=== PATIENT | female | born 1945 | race Caucasian/White ===

== ENCOUNTER 2022-04-22 10:37 | Outpatient (CLI) | payer OTHER, SELFPAY | END 2022-04-22 10:38 | disposition home or self-care (01) | LOC: WOUND 10:37 | PROVIDERS: PCP Family Medicine; Visit Provider Nurse Practitioner Family | DX: L89.314 Pressure ulcer of right buttock, stage 4 (principal); I87.2 Venous insufficiency (chronic) (peripheral); Q82.0 Hereditary lymphedema; G82.20 Paraplegia, unspecified; Z99.3 Dependence on wheelchair; M06.9 Rheumatoid arthritis, unspecified | CPT/HCPCS: 11042; 87070; 87077; 87186 ==

== ENCOUNTER 2022-04-29 09:42 | Outpatient (CLI) | payer OTHER, SELFPAY ==
--- NOTE | 2022-04-29 10:00 | CRLHL7_ITS ---
For Patients: As a result of the Century Cures Act, medical imaging exams and procedure reports are released immediately into your electronic medical record. You may view this report before your referring provider. If you have questions, please contact your health care provider. Indication: PRESSURE ULCER OF RIGHT BUTTOCK (STAGE 4) Technique: Noncontrast CT pelvis Please note that all CT scans at this facility use dose modulation, iterative reconstruction, and/or weight-based dosing when appropriate to reduce radiation dose to as low as reasonably achievable. Comparison: MRI 01/07/2022 Findings: Large pressure ulcer within the right lower gluteal region again noted extending to the posterior aspect of the right ischial tuberosity. There is slight loss of cortical definition on slice 2, image 81 regarding the right posterior ischial tuberosity along with areas of ill-defined increased density at the marrow space. This corresponds with the area of edema on prior MRI. An old nondisplaced fracture deformity of the right inferior pubic ramus is present. There is no acute fracture. The ulcer contains gas and surrounding soft tissue thickening, compatible with some element of partial healing. A large amount of stool extends beyond the anus. Rectal wall thickening is present. Sigmoid diverticulosis. No adenopathy. Postop changes lumbar spine marked atrophy of the muscles. Incidental left ovarian cyst. No uterine mass. Impression: Large pressure ulcer along the right inferior gluteal region, as before with extension to the right knee posterior ischial bone with CT findings suggestive of osteomyelitis and reactive intramedullary marrow change within the exposed bone. An old adjacent fracture deformity of the right inferior pubic ramus is also present. Diffuse rectal wall thickening which is likely transient and related to bowel movement as this was not present on the prior study. Chronic sigmoid diverticulosis. Please note that all CT scans at this facility use dose modulation, iterative reconstruction, and/or weight-based dosing when appropriate to reduce radiation dose to as low as reasonably achievable. Dictated by Jeremiah Nicholson MD @ 04/29/2022 11:17:57 AM (Electronically Signed)
== END 2022-04-29 09:43 | disposition home or self-care (01) ==
LOC: CT 09:44
PROVIDERS: PCP Family Medicine; Visit Provider Nurse Practitioner Family
DX: L89.314 Pressure ulcer of right buttock, stage 4 (principal); K57.30 Diverticulosis of large intestine without perforation or abscess without bleeding
CPT/HCPCS: 11042; 72192; 97605

== ENCOUNTER 2022-05-06 10:44 | Outpatient (CLI) | payer OTHER, SELFPAY | END 2022-05-06 10:45 | disposition home or self-care (01) | LOC: WOUND 10:44 | PROVIDERS: PCP Family Medicine; Visit Provider Nurse Practitioner Family | DX: L89.314 Pressure ulcer of right buttock, stage 4 (principal); I87.2 Venous insufficiency (chronic) (peripheral); Q82.0 Hereditary lymphedema; A49.01 Methicillin susceptible Staphylococcus aureus infection, unspecified site | CPT/HCPCS: 11042; 96372; J0696 ==

== ENCOUNTER 2022-05-13 10:39 | Outpatient (CLI) | payer OTHER, SELFPAY | END 2022-05-13 10:40 | disposition home or self-care (01) | LOC: WOUND 10:39 | PROVIDERS: PCP Family Medicine; Visit Provider Nurse Practitioner Family | DX: L89.314 Pressure ulcer of right buttock, stage 4 (principal); I87.2 Venous insufficiency (chronic) (peripheral); Q82.0 Hereditary lymphedema | CPT/HCPCS: 11042 ==

== ENCOUNTER 2022-05-20 10:43 | Outpatient (CLI) | payer OTHER, SELFPAY | END 2022-05-20 10:44 | disposition home or self-care (01) | LOC: WOUND 10:43 | PROVIDERS: PCP Family Medicine; Visit Provider Nurse Practitioner Family | DX: L89.314 Pressure ulcer of right buttock, stage 4 (principal); I89.0 Lymphedema, not elsewhere classified; G82.20 Paraplegia, unspecified; I87.2 Venous insufficiency (chronic) (peripheral); Z99.3 Dependence on wheelchair | CPT/HCPCS: 11042 ==

== ENCOUNTER 2022-05-20 11:52 | Outpatient (CLI) | payer OTHER, SELFPAY ==
[2022-05-20 12:31] LABS: Basophils Percent Auto 0.2 % (0.0-3.0); Eosinophils Percent Auto 0.8 % (0.0-7.0); Hematocrit 43.1 % (33.0-51.0); Hemoglobin* 13.2 gm/dL (12.0-16.0); Immature Granulocytes Abs Auto 0.05 K/uL (0.00-0.30); Lymphocytes Percent Auto 14.9 % (20-44); Mean Corpuscular HGB Conc 31 gm/dL (32-36); Mean Corpuscular Hemoglobin 29 pg (26-34); Mean Corpuscular Volume 93 fL (80-100); Monocytes Percent Auto 5.3 % (0.0-11.0); Neutrophils Percent Auto 78.4 % (42.0-72.0); Platelet Count* 301 K/uL (140-440); RDW Coefficient of Variation % 14.4 % (11.5-15.5); Red Blood Count 4.62 m/uL (4.00-5.20); White Blood Count* 13.03 K/uL (4.50-11.00)
[2022-05-20 12:42] LABS: Chloride* 98 mmol/L (96-114); Potassium* 4.2 mmol/L (3.6-5.1); Sodium* 139 mmol/L (135-149)
[2022-05-20 12:45] LABS: Carbon Dioxide* 36 mmol/L (20-32); Creatinine* 0.6 mg/dL (0.5-1.5); Estimated Glomerular Filt Rate 94 ml/min
[2022-05-20 12:46] LABS: Blood Urea Nitrogen* 31 mg/dL (7-30); Glucose* 123 mg/dL (60-115)
[2022-05-20 12:47] LABS: Slide Review Reflex No
[2022-05-21 14:06] LABS: Prealbumin 21.2 mg/dL (20.0-40.0)
[2022-05-23 03:37] LABS: Zinc, Serum/Plasma 68.3 ug/dL (60.0-120.0)
== END 2022-05-20 11:53 | disposition home or self-care (01) ==
PROVIDERS: PCP Family Medicine; Visit Provider Nurse Practitioner Family
DX: L89.314 Pressure ulcer of right buttock, stage 4 (principal)
CPT/HCPCS: 36415; 80048; 84134; 84630; 85025

== ENCOUNTER 2022-05-27 10:47 | Outpatient (CLI) | payer OTHER, SELFPAY | END 2022-05-27 10:48 | disposition home or self-care (01) | LOC: WOUND 10:47 | PROVIDERS: PCP Family Medicine; Visit Provider Nurse Practitioner Family | DX: L89.314 Pressure ulcer of right buttock, stage 4 (principal); I87.2 Venous insufficiency (chronic) (peripheral); Q82.0 Hereditary lymphedema; G82.20 Paraplegia, unspecified; Z99.3 Dependence on wheelchair | CPT/HCPCS: 11042; 97605 ==

== ENCOUNTER 2022-06-03 10:45 | Outpatient (CLI) | payer OTHER, SELFPAY | END 2022-06-03 10:46 | disposition home or self-care (01) | PROVIDERS: PCP Family Medicine; Visit Provider Nurse Practitioner Family | DX: L89.314 Pressure ulcer of right buttock, stage 4 (principal); I87.2 Venous insufficiency (chronic) (peripheral); Q82.0 Hereditary lymphedema | CPT/HCPCS: 11042; 97605 ==

== ENCOUNTER 2022-06-10 10:48 | Outpatient (CLI) | payer OTHER, SELFPAY | END 2022-06-10 10:49 | disposition home or self-care (01) | LOC: WOUND 10:48 | PROVIDERS: PCP Family Medicine; Visit Provider Nurse Practitioner Family | DX: L89.314 Pressure ulcer of right buttock, stage 4 (principal); I87.2 Venous insufficiency (chronic) (peripheral); Q82.0 Hereditary lymphedema; G82.20 Paraplegia, unspecified; Z99.3 Dependence on wheelchair | CPT/HCPCS: 11042; 97605 ==

== ENCOUNTER 2022-06-24 14:44 | Outpatient (CLI) | payer OTHER, SELFPAY | END 2022-06-24 14:45 | disposition home or self-care (01) | PROVIDERS: PCP Family Medicine; Visit Provider Nurse Practitioner Family | DX: L89.314 Pressure ulcer of right buttock, stage 4 (principal); I87.2 Venous insufficiency (chronic) (peripheral); Q82.0 Hereditary lymphedema; G82.20 Paraplegia, unspecified; Z99.3 Dependence on wheelchair | CPT/HCPCS: 11042; 97605 ==

== ENCOUNTER 2022-07-01 14:43 | Outpatient (CLI) | payer OTHER, SELFPAY | END 2022-07-01 14:44 | disposition home or self-care (01) | LOC: WOUND 14:43 | PROVIDERS: PCP Family Medicine; Visit Provider Nurse Practitioner Family | DX: L89.314 Pressure ulcer of right buttock, stage 4 (principal); M86.68 Other chronic osteomyelitis, other site; Q82.0 Hereditary lymphedema | CPT/HCPCS: 11042; 97605 ==

== ENCOUNTER 2022-07-08 14:25 | Outpatient (CLI) | payer OTHER, SELFPAY | END 2022-07-08 14:26 | disposition home or self-care (01) | LOC: WOUND 14:25 | PROVIDERS: PCP Family Medicine; Visit Provider Nurse Practitioner Family | DX: L89.314 Pressure ulcer of right buttock, stage 4 (principal); I87.2 Venous insufficiency (chronic) (peripheral); Q82.0 Hereditary lymphedema | CPT/HCPCS: 11042 ==

== ENCOUNTER 2022-07-15 14:27 | Outpatient (CLI) | payer OTHER, SELFPAY ==
--- OUTSIDE RECORDS SUMMARY | 2022-07-15 14:28 | XMS_ITS | Encounter Summary ---
:1945 Author [facility] Address [address], [place] [address] Care Team Providers Name Role Phone Flo Mckeon MD Primary Care Provider Reason for Visit Reason Comments Refill Encounter Details Date Type Department Care Team Description 06/13/2022 Refill [facility] [address] BlackLorenza, DO Refill Rheumatology [address]ie Barajas [address] [place] [address] [place] [address] [phone] Social History Tobacco Use Types Packs/Day Years Used Date Smoking Tobacco: Never Assessed Sex Assigned at Date Recorded Not on file documented as of this encounter Nursing Notes Jennifer Sanchez RN - 06/13/2022 12:06 PM CDT LV: 07/31/21 NV: n/a Renewed medication per medication refill protocol. Requested Prescriptions Pending Prescriptions Disp Refills folic acid 1 MG tablet [Pharmacy Med Name: FOLIC ACID 1 MG TABLET] 90 Tablet 3 Sig: TAKE 1 TABLET BY MOUTH EVERY DAY documented in this encounter Plan of Treatment Not on filedocumented as of this encounter Visit Diagnoses Diagnosis Rheumatoid arthritis with negative rheum atoid factor, involving unspecified site (HRC) Encounter for long-term (current) use of medications Encounter for long-term (current) use of other medications documented in this encounter Care Teams Silk Spreader Relationship Specialty Start Date End Date Flo Mckeon MD PCP - General 06/21/211999 [place] [address] documented as of this encounter
--- OUTSIDE RECORDS SUMMARY | 2022-07-15 14:28 | XMS_ITS | Encounter Summary ---
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) Lorenza Black DO Procedures XR Shoulder Rt 2+ Views [address] [place], [place] [address] Referral ID Status Reason Start Date Expiration Date Visits V isits Requested Authorized [id number] Incomplete 06/28/2021 09/27/2022 1 1 Procedure/Equipment (Routine) - Incomplete Specialty Diagnoses / Procedures Referred By Contact Refer red To Contact Diagnoses 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) Lorenza Black DO Procedures XR Hands 1 View Bilat Arthritis [address] [place], [place] [address] Referral ID Status Reason Start Date Expiration Date Visits V isits Requested Authorized [id number] Incomplete 06/28/2021 09/27/2022 1 1 Reason for Visit Reason Comments CONSULT Encounter Details Date Type Department Care Team Description 06/28/2021 Office Visit [place] Lorenza Black DO 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) (Primary Dx); Rheumatology [address] 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; [address] [address] [place], [place] [phone] [id number] Social History Tobacco Use Types Packs/Day Years Used Date Smoking Tobacco: Never Assessed Sex Assigned at Date Recorded Not on file documented as of this encounter Patient Instructions Patient InstructionsLorenza Black DO - 06/28/2021 12:45 PM CDT I do think you have rheumatoid arthritis or something very similar to it I am going to do some blood tests today to help me understand what type of rheumatoid arthritis thiscould be I also want to look at xrays of your hands and right shoulder to understand how much damage to the joints have already been done If your blood work looks great, I would love to start you on methotrexate 7 pills every week. I would also start folic acid once a day as a vitamin I do not believe the methotrexate will be enough to calm down your rheumatoid arthritis, so I will likely plan on adding something to it in the future. Usually medicare and medicare advantage plans PREFER infusion based medicines because it is cheaper for them. Expect a phone call from me to advise you to start the methotrexate documented in this encounter Progress Notes Lorenza Black DO - 06/28/2021 12:45 PM CDT Images from the original note were not included. Rheumatology Consultation 06/28/21 This patient is referred by Flo Singleton MD for evaluation of rheumatoid arthritis. Prerna Major is a 75 y.o. female who comes in for RA. Our patient comes in with complaints of rheumatoid arthritis diagnosed in 2003. She states that her initial symptoms were in the shoulders predominantly. She thinks that the pain was worse in the morning and evening. It appears that with use things improved. She was treated with prednisone and methotrexate initially for about a year without significant benefit. Subsequently infliximab was added on for about 6 months without any further benefit. At that point the patient moved away and was lost to follow-up to her previous stretching press operator. She has been on prednisone 5 mg and then recently 10 mg [id number] Today the patient states that her hands and wrists are also involved with pain and swelling. The hands and wrists became involved about 2 years ago and in the past year have become significantly worse.She states that there achy in nature and sharp with use. She currently rates her pain today at a 4/10 without activity. With activity at the hands the pain can go up to 6/10. She laments the inability to cone picker her grandchildren. She has tried anti-inflammatories and Tylenol in the past with modest benefit. She thinks that Aleve works the best for her. Past medical history is significant for rheumatoid arthritis diagnosed decades ago in 2003.. She tried infliximab and MTX in the past with waning efficacy. She has been on pred 10 for a long time. She also is wheelchair bound due to severe scoliosis s/p several surgical procedures. She has some sensation in lower extremities. She also has a history of osteoporosis Family history is negative for rheumatoid arthritis, psoriasis or inflammatory bowel disease The patient has never smoked. 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 Exam Gen: NAD, AOx3 Skin: I believe there are rheumatoid nodules palpable around the 1st CMC joint of the right hand dorsal aspect MSK: Her right wrist appears to be somewhat arthritic in nature with limited range of motion. There seems to be a cystic nodule on the volar aspect of her right wrist. Possible synovitis grade 1. Bilateral MCPs 1 through 5 without any evidence of synovitis or effusion. No effusion or synovitis noted in the DIP is or PIP is bilaterally. Significant Heberden's and Dora's nodes noted digits 2 through 5 bilaterally. As I examine her shoulders today I can appreciate that they feel warm to the touch and slightly swollen on palpation. Range of motion abduction is limited particularly in the right to about 90?? Lab/Imaging Labs: There were no applicable labs for us to review Imaging: There were no applicable images for us to review Assessment and Plan 75 y.o. female who comes in for RA - we took the liberty of performing bedside ultrasound today to look at her right wrist which was previously thought to be a ganglion cyst. On ultrasound this appears to be a large synovial cyst starting at the radiocarpal joint consistent with active rheumatoid arthritis. Both shoulders were also viewed and also to mild effusions were noted just superior to the infraspinatus tendons -incidental note her right wrist median nerve also meets criteria for carpal tunnel. 1) inflammatory arthritis -the distribution of her symptoms any progression of onset seems to be a little atypical for rheumatoid arthritis. We would expect predominantly hand MCP and wrist involvement. However we have shoulderand wrist involvement with sparing of the MCPs. -we will get blood work and x-rays to help further define the chronicity of her symptoms -get labs: CBC, creatinine, LFTs, TB, HIV, hepatitis-B, hepatitis-C, rheumatoid factor and anti CCP antibody -will get x-rays of her bilateral hands and right shoulder to look for erosions and secondary osteoarthritis -spoke to patient about restarting methotrexate. I understand that she previously did not have significant benefit from it however, it is a very good DMARD neck can be the foundation to build upon her treatment for rheumatoid arthritis -we will plan to add on a biologic on top of her methotrexate after we see the results of her above labs. We are leaning towards rituximab if she is seropositive and Orencia if she is seronegative -the patient is not interested in getting the COVID vaccine or booster -for now will have the patient continue the prednisone 10. My plan is to taper that once I have DMARD and biologic treatment on board -we will have to also further investigate her osteoporosis in the future. Rheumatoid arthritis, female over the age of 65 and chronic steroid use does not joesph well for osteoporosis -we will call the patient in the next 2 days and advised her to start the methotrexate if her labs look appropriate. We will have the patient follow-up with us via a virtual visit in the next month to discuss next steps Orders Placed This Encounter Procedures ??? Complete Blood Count -W/Diff ??? Creatinine / GFR ??? Liver Panel(Hepatic Function Panel) ??? TB QuantiFERON Gold Plus ??? Anti-CCP Antibody ??? Rheumatoid Factor, Quant Billing based on: Time Total time for the visit was 65 minutes including, but not limited to, eep-tzio-wd-face time spent reviewing records, counseling, and coordination of care. documented in this encounter Plan of Treatment Not on filedocumented as of this encounter Results XR Hands 1 View Bilat Arthritis (06/28/2021 2:55 PM CDT) Anatomical Region Laterality Modality Upper Extremity, Hand Digital Radiograph y Specimen (Source) Anatomical Collection Method Collection Time Re ceived Time Location / / Volume Laterality 06/28/2021 2:35 PM CDT Impressions 06/28/2021 3:49 PM CDT COMPARISON: ??None. FINDINGS: ??Single view of both hands. Left hand: The bones are mildly deminera lized. No acute fractures are seen. There is widening of the scapholunate interval at 5 mm which may indicate scapholunate dislocation. There are moderate degener ative changes throughout multiple interp halangeal joints, predominantly in the first IP joint and the third PIP joint. There are degenerative changes of the first CMC, STT and radiocarpal joints. Right hand: The bones are mildly deminer alized. No acute fractures are seen. There is advanced joint space narrowing of the third DIP joint with possible erosive changes. There are moderate degenerative changes of multiple interphalangeal rosanne nts, predominantly at the first IP and third PIP joints. There is marked widening of the scapholunate interval with proximal migration of the capitate to the leve l of the radiocarpal joint. There are de generative changes of the radiocarpal and multiple intercarpal joints. Procedure Note Kale Gilbert MD - 06/28/2021Formatti ng of this note might be different from the original. IMPRESSION COMPARISON: None. FINDINGS: Single view of both hands. Left hand: The bones are mildly deminera lized. No acute fractures are seen. There is widening of the scapholunate interval at 5 mm which may indicate scapholunate dislocation. There are moderate degenerative changes throughout multiple interphalangeal join ts, predominantly in the first IP joint and the third PIP joint. There are degenerative changes of the first CMC, STT and radiocarpal joints. Right hand: The bones are mildly deminer alized. No acute fractures are seen. There is advanced joint space narrowing of the third DIP joint with possible erosive changes. There are moderate degenerative changes of multiple interphalangeal joints, predomi nantly at the first IP and third PIP joints. There is marked widening of the scapholunate interval with proximal migration of the capitate to the level of the radiocarpal joint. There are degenerative changes of the ra diocarpal and multiple intercarpal joints. [facility] DO RAD GD XR Shoulder Rt 2+ Views (06/28/2021 2:55 PM CDT) Anatomical Region Laterality Modality Upper Extremity, Shoulder Digital Radiog gaston Specimen (Source) Anatomical Collection Method Collection Time Re ceived Time Location / / Volume Laterality 06/28/2021 2:35 PM CDT Impressions 06/28/2021 3:40 PM CDT COMPARISON: ??None. FINDINGS: ??No acute fractures are ident ified. No dislocation. Advanced degenerative arthrosis of the glenohumeral joint. Small calcific densities abutting the inferior glenoid likely represent intra-ar ticular osteocartilaginous bodies. Super ior subluxation of the humeral head may be seen with full-thickness rotator cuff tendon tears. Moderate degenerative arthrosis of the AC joint. Procedure Note Santy Albright MD - 06/28/2021Formatti ng of this note might be different from the original. IMPRESSION COMPARISON: None. FINDINGS: No acute fractures are identif ied. No dislocation. Advanced degenerative arthrosis of the glenohumeral joint. Small calcific densities abutting the inferior glenoid likely represent intra-articular osteocartilaginous bodies. Superior subl uxation of the humeral head may be seen with full-thickness rotator cuff tendon tears. Moderate degenerative arthrosis of the AC joint. Lorenza Hotalot [facility] DO RAD GD Rheumatoid Factor, Quant (06/28/2021 2:27 PM CDT) Analysis Performed At Patho logist Time Signature Rheumatoid <15 <=30 IU/mL 06/28/2021 [facility] Factor, 7:52 PM CDT LABORATORY Quantitative Specimen Anatomical Collection Method / Collection Time Recei giselle Time (Source) Location / Volume Laterality Blood Venipuncture / 06/28/2021 2:27 06/28/2021 2:28 Unknown PM CDT PM CDT [facility] Hotalot [facility] DO LAB_1 Performing Organization Address City/State/ZIP Code Phon e Number [facility] [address] [place] [address] Anti-CCP Antibody (06/28/2021 2:27 PM CDT) [facility] Method Time Signature Anti-CCP Antibody 1 <7 U/mL 06/29/2021 [facility]16 PM CDT [facility] Anti-CCP Antibody Negative Negative 06/29/2021 [facility] Interpretation 1:16 PM CDT [facility] Specimen Anatomical Collection Method / Collection Time Recei giselle Time (Source) Location / Volume Laterality Blood Venipuncture / 06/28/2021 2:27 06/28/2021 2:28 Unknown PM CDT PM CDT [facility] DO LAB_1 Performing Organization Address City/[facility]/ZIP Code Phon e Number [employer] [address] [address] Hepatitis B Surface Antigen (06/28/2021 2:27 PM CDT) [facility] Method Time Signature Hepatitis B Negative Negative 06/28/2021 [facility] Surface (Non (Non 8:12 PM CDT LABORATORY Antigen Reactive) Reactive) Specimen Anatomical Collection Method / Collection Time Recei giselle Time (Source) Location / Volume Laterality Blood Venipuncture / 06/28/2021 2:27 06/28/2021 2:28 Unknown PM CDT PM CDT Instant Information LAB_1 Performing Organization Address [facility] Phon e Number [facility] [address] [place] [address] HIV 1/2 Ag/Ab 4th Generation (06/28/2021 2:27 PM CDT) [facility] Method [place] Signature HIV 1/2 Negative Negative 06/28/2021 [facility] Antigen/Antib (Non (Non 7:52 PM CDT LABORATORY zachary (4th Reactive) Reactive) generation) Comment: HIV-1 p24 Antigen and HIV-1/HIV -2 Antibody not detected Specimen Anatomical Collection Method / Collection Time Recei giselle Time (Source) Location / Volume Laterality Blood Venipuncture / 06/28/2021 2:27 06/28/2021 2:28 Unknown PM CDT PM CDT [employer] DO LAB_1 Performing Organization Address City/[facility]/ZIP Code Phon e Number [facility] [address] [place] [address] Hepatitis C Antibody, with Reflex (06/28/2021 2:27 PM CDT) [facility] Method Time Signature Hepatitis C Negative Negative 06/28/2021 [facility] Antibody (Non (Non 7:52 PM CDT LABORATORY Reactive) Reactive) Comment: Antibodies to HCV not detected. Does not exclude the possiblity of exposure to HCV. Specimen Anatomical Collection Method / Collection Time Recei giselle Time (Source) Location / Volume Laterality Blood Venipuncture / 06/28/2021 2:27 06/28/2021 2:28 Unknown PM CDT PM CDT Lorenza Q Black DO LAB_1 Performing Organization Address City/[facility] Phon e Number [facility] [address] [place] [address] Liver Panel(Hepatic Function Panel) (06/28/2021 2:27 PM CDT) athologist Signature Alkaline 70 40 - 150 06/28/2021 [facility] Phosphatase U/L 5:11 PM CDT LABORATORY Bilirubin, Total 0.5 0.2 - 1.2 06/28/2021 [facility] mg/dL 5:11 PM CDT LABORATORY Bilirubin, 0.2 0.0 - 0.5 06/28/2021 [facility] Direct mg/dL 5:11 PM CDT LABORATORY AST (SGOT) 18 10 - 40 06/28/2021 [facility] U/L 5:11 PM CDT LABORATORY ALT (SGPT) 21 0 - 55 U/L 06/28/2021 [facility] 5:11 PM CDT LABORATORY Protein, Total 6.5 6.4 - 8.3 06/28/2021 [place] g/dL 5:11 PM CDT LABORATORY Albumin 3.9 3.5 - 5.0 06/28/2021 [facility] g/dL 5:11 PM CDT LABORATORY Specimen Anatomical Collection Method / Collection Time Recei giselle Time (Source) Location / Volume Laterality Blood Venipuncture / 06/28/2021 2:27 06/28/2021 2:28 Unknown PM CDT PM CDT [facility] Q Black DO LAB_1 Performing Organization Address City/State/[facility] Phon e Number [facility] [address] [place] [address] (ABNORMAL) Creatinine / GFR (06/28/2021 2:27 PM CDT) [facility] gist Method Time Signature Creatinine 0.40 (L) 0.55 - 06/28/2021 [facility] 1.02 mg/dL 5:11 PM CDT LABORATORY GFR, Estimated >60 >60 06/28/2021 [facility] mL/min/1.7 5:11 PM CDT LABORATORY 3m2 Specimen Anatomical Collection Method / Collection Time Recei giselle Time (Source) Location / Volume Laterality Blood Venipuncture / 06/28/2021 2:27 06/28/2021 2:28 Unknown PM CDT PM CDT Lorenza Q Black DO LAB_1 Performing Organization Address City/State/ZIP Code Phon e Number [facility] [address] [place] [address] documented in this encounter Visit Diagnoses Diagnosis 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
--- OUTSIDE RECORDS SUMMARY | 2022-07-15 14:28 | XMS_ITS | Encounter Summary ---
:1945 Author Organization [facility] Address [address], [place] [address] Care Team Providers Name Role Phone Unassigned, Provider Primary Care Provider Unavailable Encounter Details Date Type Department Care Team Description 10/13/1989 PN Conversion Only ZONING ENGINEER [address] [place] [address] Social History Tobacco Use Types Packs/Day Years Used Date Smoking Tobacco: Never Assessed Sex Assigned at Date Recorded Not on file documented as of this encounter Plan of Treatment Not on filedocumented as of this encounter Visit Diagnoses Not on filedocumented in this encounter Care Teams General Accounting Clerk Relationship Specialty Start Date End Date Unassigned, Provider PCP - General 07/16/00 06/20/21 [address] [place] [address] documented as of this encounter
--- OUTSIDE RECORDS SUMMARY | 2022-07-15 14:28 | XMS_ITS | Encounter Summary ---
:1945 Author Organization [facility] Address [address], [place] [address] Care Team Providers Name Role Phone Flo Mckeon MD Primary Care Provider Reason for Visit Reason Comments Refill Encounter Details Date Type Department Care Team Description 12/12/2021 Refill [facility] [address] Lorenza Black, DO Refill Rheumatology [address] [place] [address] [place] [address] [phone] Social History Tobacco Use Types Packs/Day Years Used Date Smoking Tobacco: Never Assessed Sex Assigned at Date Recorded Not on file documented as of this encounter Nursing Notes Akiko Vega LPN - 12/12/2021 12:22 PM CST Left message informing patient. ONAL BANKING REPRESENTATIVE Mercy Roman PA-C - 12/12/2021 12:18 PM CST Please contact the patient to let her know that we received a request for methotrexate refill but wecannot refill the medication as she has not had any updated blood tests checked. Please remind her these blood tests are needed every three months. Find out if she is getting them through an outside lab as I do not see any updated labs in Care everywhere. Dr. Black also wanted to see her in six-eight weeks from her last visit in July but no recheck has been scheduled. Please help her schedule a recheck with Dr. Black as soon as possible. ONAL BANKING REPRESENTATIVE documented in this encounter Plan of Treatment Not on filedocumented as of this encounter Visit Diagnoses Not on filedocumented in this encounter Care Teams Patient Safety Coordinator Relationship Specialty Start Date End Date Flo Mckeon MD PCP - General 06/21/211999 [place], [place] [id number] documented as of this encounter
--- OUTSIDE RECORDS SUMMARY | 2022-07-15 14:28 | XMS_ITS | Encounter Summary ---
:1945 Author Organization [facility] Address [address] [place] [address] Care Team Providers Name Role Phone Flo Mckeon MD Primary Care Provider Reason for Visit Reason Comments Phone Visit Follow-up Encounter Details Date Type Department Care Team Description 07/31/2021 Phone Visit [facility] Lorenza Black DO Rheumatoid arthritis with negative rheum atoid factor, involving unspecified site (HRC) (Primary Dx); Rheumatology [address] [place] [address] Encounter for long-term (cur rent) use of medications [address] [place] [address] [place], [place] [phone] (Wo rk) Social History Tobacco Use Types Packs/Day Years Used Date Smoking Tobacco: Never Assessed Sex Assigned at Date Recorded Not on file documented as of this encounter Progress Notes Lorenza Black DO - 07/31/2021 2:45 PM CDT Rheumatology Follow Up 07/31/2021 Follow Up RA Rheum History: We first met Ms Major in Jun 2021 with complaints of RA. She was diagnosed in 2003. She had previously been on MTX, infliximab and prednisone. When we met her, her wrist was quite swollen and we restarted MTX Current Treatment: MTX 17.5 and FA since Jun 2021 Interval History: At her first visit with us, we saw significant wrist effusion from RA. We checked her serologies which were negative. We started the patient on MTX which she had been on in the distant past She states today that she is currently being treated for a UTI. She does not think the MTX made a bit of difference for her at all. She is quite swollen and tender all around her joints now Exam Not applicable. This is a phone visit Assessment and Plan 75 y.o. 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 -still active based on patient report 1) RA - I mentioned that biologics are likely needed at this point - she would prefer to keep infusion biologics due to insurance coverage - we discussed rituximab vs orencia. We favored orencia given the seronegative ra but the patient wanted to try the rituximab due to the ease of scheduling - we will go ahead and get a PA for the rituximab now and have the patient scheduled We will see the patient in 6-8 weeks and reassess Total time was greater than 30 min with greater than 70 % for counseling and coordination of care (discussion with bedside nursing, patient counseling, discussion with care management, review of pertinent labs or studies, and medical records). This telephone visit was provided via telemedicine using interactive, secure video conferencing. Theconsult began at 2:45 P and ended at 3:10 on July 312020. Based on a discussion with the referring provider and a review of the patient's medical chart, it was determined that telemedicine was an appropriate and effective means for delivering care to this patient. The patient is located at Home in [facility]. The consulting provider is located in [place], [place]. documented in this encounter Plan of Treatment Not on filedocumented as of this encounter Visit Diagnoses Diagnosis Rheumatoid arthritis with negative rheum atoid factor, involving unspecified site (HRC) - Primary Encounter for long-term (current) use of medications Encounter for long-term (current) use of other medications documented in this encounter Care Teams Steel Placer Relationship Specialty Start Date End Date Flo Mckeon MD PCP - General 06/21/211999 [place] [address] documented as of this encounter
--- OUTSIDE RECORDS SUMMARY | 2022-07-15 14:28 | XMS_ITS | Encounter Summary ---
:1945 Author [facility] Address [address] [address] Care Team Providers Name Role Phone Flo Mckeon MD Primary Care Provider Reason for Visit Procedure/Equipment (Routine) - Incomplete Specialty Diagnoses / Procedures Referred By Contact Refer red To Contact Diagnoses 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) Black Lorenza Q, DO Procedures XR Hands 1 View Bilat Arthritis [address] [place], [place] [address] Referral ID Status Reason Start Date Expiration Date Visits V isits Requested Authorized [id number] Incomplete 06/28/2021 09/27/2022 1 1 Encounter Details Date Type Department Care Team Description 06/28/2021 Ancillary [place] Black, Lorenza Q, DO Rheumatoid arthritis Procedure Radiology [address] involving multiple [address] [facility] sites with positive [address] [place], [place] [address] (HRC) [phone] Social History Tobacco Use Types Packs/Day Years Used Date Smoking Tobacco: Never Assessed Sex Assigned at Date Recorded Not on file documented as of this encounter Plan of Treatment Not on filedocumented as of this encounter Procedures Procedure Name Priority Date/Time Associated Diagnosis Comme nts XR HANDS 1 VIEW Routine 06/28/2021 2:55 PM Rheumatoid arthriti s Results for this BILAT ARTHRITIS CDT involving multiple proced ure are in sites with positive the resu lts rheumatoid factor section. (HR) documented in this encounter Results XR Hands 1 View [...] the ra diocarpal and multiple intercarpal joints. Lorenza Q Black DO RAD GD documented in this encounter Visit Diagnoses Diagnosis 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) documented in this encounter Care Teams Tandem Operator Relationship Specialty Start Date End Date Flo Mckeon MD PCP - General 06/21/211999 [place] [id number] documented as of this encounter
--- OUTSIDE RECORDS SUMMARY | 2022-07-15 14:28 | XMS_ITS | Encounter Summary ---
:1945 Author Organization [facility] Address [address], [place] [address] Care Team Providers Name Role Phone Flo Mckeon MD Primary Care Provider Encounter Details Date Type Department Care Team Description 06/28/2021 Lab Visit [facility] Rheumatoid arthritis [address] [place] [address] with positive rheumatoid [phone] factor (HRC) Social History Tobacco Use Types Packs/Day Years Used Date Smoking Tobacco: Never Assessed Sex Assigned at Date Recorded Not on file documented as of this encounter Plan of Treatment Not on filedocumented as of this encounter Procedures Procedure Name Priority Date/Time Associated Comments Diagnosis CBC AND DIFFERENTIAL Routine 06/28/2021 2:28 PM Rheumatoid R esults for this PANEL CDT arthritis involving procedur e are in multiple sites with the resu lts positive rheumatoid section. factor (HRC) TB QUANTIFERON GOLD Routine 06/28/2021 2:28 PM Rheumatoid Re sults for this PLUS CDT arthritis involving procedur e are in multiple sites with the resu lts positive rheumatoid section. factor (HRC) TB QUANTIFERON GOLD Routine 06/28/2021 2:28 PM Rheumatoid Re sults for this PLUS MITOGEN CDT arthritis involving procedur e are in multiple sites with the resu lts positive rheumatoid section. factor (HRC) TB QUANTIFERON GOLD Routine 06/28/2021 2:28 PM Rheumatoid Re sults for this PLUS TB2 CDT arthritis involving procedur e are in multiple sites with the resu lts positive rheumatoid section. factor (HRC) TB QUANTIFERON GOLD Routine 06/28/2021 2:28 PM Rheumatoid Re sults for this PLUS TB1 CDT arthritis involving procedur e are in multiple sites with the resu lts positive rheumatoid section. factor (HRC) TB QUANTIFERON GOLD Routine 06/28/2021 2:28 PM Rheumatoid Re sults for this PLUS NIL CDT arthritis involving procedur e are in multiple sites with the resu lts positive rheumatoid section. factor (HRC) COMPLETE BLOOD Routine 06/28/2021 2:28 PM Rheumatoid Results for this COUNT-W/DIFF CDT arthritis involving procedur e are in multiple sites with the resu lts positive rheumatoid section. factor (HRC) HIV 1/2 AG/AB 4TH GEN Routine 06/28/2021 2:27 PM Rheumatoid Results for this CDT arthritis involving procedur e are in multiple sites with the resu lts positive rheumatoid section. factor (HRC) CREATININE / GFR Routine 06/28/2021 2:27 PM Rheumatoid Resul ts for this CDT arthritis involving procedur e are in multiple sites with the resu lts positive rheumatoid section. factor (HRC) ANTI-CCP AB Routine 06/28/2021 2:27 PM Rheumatoid Results f or this CDT arthritis involving procedur e are in multiple sites with the resu lts positive rheumatoid section. factor (HRC) LIVER PANEL(HEPATIC Routine 06/28/2021 2:27 PM Rheumatoid Re sults for this FUNCTION PANEL) CDT arthritis involving proce dure are in multiple sites with the resu lts positive rheumatoid section. factor (HRC) RHEUMATOID FACTOR, Routine 06/28/2021 2:27 PM Rheumatoid Res ults for this QUANT CDT arthritis involving procedur e are in multiple sites with the resu lts positive rheumatoid section. factor (HRC) HEPATITIS C ANTIBODY, Routine 06/28/2021 2:27 PM Rheumatoid Results for this WITH REFLEX CDT arthritis involving procedur e are in multiple sites with the resu lts positive rheumatoid section. factor (HRC) HBSAG (HEPATITIS B Routine 06/28/2021 2:27 PM Rheumatoid Res ults for this SURFACE AG) CDT arthritis involving procedur e are in multiple sites with the resu lts positive rheumatoid section. factor (HRC) documented in this encounter Results TB QuantiFERON Gold Plus Mitogen (06/28/2021 2:28 PM CDT) athologist Signature MITOGEN >10.000 IU/mL 07/02/2021 [facility] 8:53 AM CDT LABORATORY Specimen Anatomical Collection Method / Collection Time Recei giselle Time (Source) Location / Volume Laterality Blood Venipuncture / 06/28/2021 2:28 06/28/2021 2:28 Unknown PM CDT PM CDT Lorenza [facility] LAB_1 Performing Organization Address [facility] Phon e Number [facility] [address] [place] [address] TB QuantiFERON Gold Plus TB2 (06/28/2021 2:28 PM CDT) P athologist Signature TB2 0.081 IU/mL 07/02/2021 [facility] 8:53 AM CDT LABORATORY Specimen Anatomical Collection Method / Collection Time Recei giselle Time (Source) Location / Volume Laterality Blood Venipuncture / 06/28/2021 2:28 06/28/2021 2:28 Unknown PM CDT PM CDT [facility] LAB_1 Performing Organization Address [facility] Phon e Number [facility] [address] [place] [address] TB QuantiFERON Gold Plus TB1 (06/28/2021 2:28 PM CDT) P athologist Signature TB1 0.094 IU/mL 07/02/2021 [facility] 8:54 AM CDT LABORATORY Specimen Anatomical Collection Method / Collection Time Recei giselle Time (Source) Location / Volume Laterality Blood Venipuncture / 06/28/2021 2:28 06/28/2021 2:28 Unknown PM CDT PM CDT [facility] LAB_1 Performing Organization Address [facility] Phon e Number [facility] [address] [place] [address] TB QuantiFERON Gold Plus NIL (06/28/2021 2:28 PM CDT) [facility] gist Method Time Signature 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 NIL 0.024 IU/mL 07/02/2021 [facility] 8:54 AM LABORATORY CDT TB1-NIL 0.07 IU/mL 07/02/2021 [facility] 8:54 AM LABORATORY CDT TB2-NIL 0.06 IU/mL 07/02/2021 [facility] 8:54 AM LABORATORY CDT Mitogen-NIL 9.98 IU/mL 07/02/2021 [facility] 8:54 AM LABORATORY CDT Specimen Anatomical Collection Method / Collection Time Recei giselle Time (Source) Location / Volume Laterality Blood Venipuncture / 06/28/2021 2:28 06/28/2021 2:28 Unknown PM CDT PM CDT Narrative [facility] - 07/02/2021 8:54 A M CDT Nil ?TB1-Nil ? TB2-Nil ?Mitogen-Nil ??Result ?Interpretation (IU/ml) ??(IU/mL) ? (IU/mL) ?(IU/mL) <=8.0 ? >=0.35 & ? Any ?Any ?Positive ?M. tuberculosis ?>=25% Nil ?infection likely <=8.0 ? Any ?>=0.35 & ? Any ?Positive ?M. tuberculosis ? >=25% Nil ? infection likely <=8.0 ? <0.35 or ? <0.35 or ? >=0.50 ? Negative ?M. tuberculosis ?>=0.35 & ? >=0.35 & ?infection NOT ?<25% Nil ? <25% Nil ?likely <=8.0 ? <0.35 or ? <0.35 or ? <0.50 ? Indeterminate ??M. tuberculosis ?>=0.35 & ? >=0.35 & ?infection cannot ?<25% Nil ? <25% Nil ?be determined >8.0 ?Any ?Any ?Any ? Indeterminate ??M. tuberculosis ? infection cannot ? be determined. Important: Diagnosing or excluding tuber culosis disease, and assessing the probability of LTBI, requires a combination of epidemiological, historical, medical, and diagnostic findings that should be jennifer en into account when interpreting QFT-Pl us results. See general guidance on the diagnosis and treatment of TB disease and LTBI (https://www.cdc.gov/tb/publications/guidelines/default.htm). The magnitude of the measured IFN-gamma level cannot be correlated to stage or degree of infection, level of immune responsiveness, or likelihood for progression to active disease. A positive TB respons e in persons who are negative to Mitogen is rare, but has been seen in patients with TB disease. This indicates the IFN-gamma response to TB antigens is greater than that to Mitogen, which is possible a s the level of Mitogen does not maximall y stimulate IFN-gamma production by lymphocytes. Lorenza Q Black DO LAB_1 Performing Organization Address City/State/ZIP Code Phon e Number [facility] [address] [place] [address] (ABNORMAL) Complete Blood Count-W/Diff (06/28/2021 2:28 PM CDT) [facility] Method Time Signature WBC 12.1 (H) 3.5 - 10.5 06/28/2021 [facility] x10(9)/L 2:44 PM CDT LABORATORY RBC 5.26 (H) 3.90 - 06/28/2021 [facility] 5.03 2:44 PM CDT LABORATORY x10(12)/L Hemoglobin 15.2 12.0 - 06/28/2021 [facility] 15.5 g/dL 2:44 PM CDT LABORATORY HCT 48.5 (H) 34.9 - 06/28/2021 [facility] 44.5 % 2:44 PM CDT LABORATORY MCV 92.2 80.0 - 06/28/2021 [facility] 100.0 fL 2:44 PM CDT LABORATORY MCH 28.9 27.6 - 06/28/2021 [facility] 33.3 pg 2:44 PM CDT LABORATORY MCHC 31.3 (L) 31.5 - 06/28/2021 [facility] 35.2 g/dL 2:44 PM CDT LABORATORY RDW 13.8 11.9 - 06/28/2021 [facility] 15.5 % 2:44 PM CDT LABORATORY Platelets 307 150 - 450 06/28/2021 [facility] x10(9)/L 2:44 PM CDT LABORATORY Automated NRBC 0 <=0 /100 06/28/2021 [facility] WBC 2:44 PM CDT LABORATORY Neutrophil 10.8 (H) 1.7 - 7.0 06/28/2021 [facility] Absolute 10(9)/L 2:44 PM CDT LABORATORY Lymphocyte 0.9 (L) 1.0 - 4.8 06/28/2021 [facility] Absolute 10(9)/L 2:44 PM CDT LABORATORY Monocytes 0.3 0.2 - 0.9 06/28/2021 [facility] Absolute 10(9)/L 2:44 PM CDT LABORATORY Eosinophil 0.0 0.0 - 0.5 06/28/2021 [facility] Absolute 10(9)/L 2:44 PM CDT LABORATORY Basophil 0.0 0.0 - 0.3 06/28/2021 [facility] Absolute 10(9)/L 2:44 PM CDT LABORATORY Immature Gran % 0.7 (H) 0.0 - 0.5 06/28/2021 [facility] % 2:44 PM CDT LABORATORY Specimen Anatomical Collection Method / Collection Time Recei giselle Time (Source) Location / Volume Laterality Blood Venipuncture / 06/28/2021 2:28 06/28/2021 2:28 Unknown PM CDT PM CDT [employer] DO LAB_1 Performing Organization Address City/State/ZIP Code Phon e Number [facility] [address] [place] [address] Rheumatoid Factor, Quant (06/28/2021 2:27 PM CDT) Analysis Performed At Path logist Time Signature Rheumatoid <15 <=30 IU/mL 06/28/2021 [facility] Factor, 7:52 PM CDT LABORATORY Quantitative Specimen Anatomical Collection Method / Collection Time Recei giselle Time (Source) Location / Volume Laterality Blood Venipuncture / 06/28/2021 2:27 06/28/2021 2:28 Unknown PM CDT PM CDT [employer] DO LAB_1 Performing Organization Address City/State/ZIP Code Phon e Number [facility] [address] [place] [address] Anti-CCP Antibody (06/28/2021 2:27 PM CDT) [facility] Method Time Signature Anti-CCP Antibody 1 <7 U/mL 06/29/2021 [facility] 1:16 PM CDT CENTRAL LAB Anti-CCP Antibody Negative Negative 06/29/2021 [facility] Interpretation 1:16 PM CDT CENTRAL LAB Specimen Anatomical Collection Method / Collection Time Recei giselle Time (Source) Location / Volume Laterality Blood Venipuncture / 06/28/2021 2:27 06/28/2021 2:28 Unknown PM CDT PM CDT Lorenza [employer] DO LAB_1 Performing Organization Address City/[facility]/ZIP Code Phon e Number [facility] CENTRAL LAB [address] [address] Hepatitis B Surface Antigen (06/28/2021 2:27 PM CDT) [facility] Method Time Signature Hepatitis B Negative Negative 06/28/2021 [facility] Surface (Non (Non 8:12 PM CDT LABORATORY Antigen Reactive) Reactive) Specimen Anatomical Collection Method / Collection Time Recei giselle Time (Source) Location / Volume Laterality Blood Venipuncture / 06/28/2021 2:27 06/28/2021 2:28 Unknown PM CDT PM CDT Lorenza [employer] DO LAB_1 Performing Organization Address [facility] Code Phon e Number [facility] [address] [place] [address] HIV 1/2 Ag/Ab 4th Generation (06/28/2021 2:27 PM CDT) [facility] Method Time Signature HIV 1/2 Negative Negative 06/28/2021 [facility] Antigen/Antib (Non (Non 7:52 PM CDT LABORATORY zachary (4th Reactive) Reactive) generation) Comment: HIV-1 p24 Antigen and HIV-1/HIV -2 Antibody not detected Specimen Anatomical Collection Method / Collection Time Recei giselle Time (Source) Location / Volume Laterality Blood Venipuncture / 06/28/2021 2:27 06/28/2021 2:28 Unknown PM CDT PM CDT Lorenza [employer] DO LAB_1 Performing Organization Address [facility]/ZIP Code Phon e Number [facility] [address] [place] [address] Hepatitis C Antibody, with Reflex (06/28/2021 2:27 PM CDT) Patholo gist Method Time Signature Hepatitis C Negative Negative 06/28/2021 [facility] Antibody (Non (Non 7:52 PM CDT LABORATORY Reactive) Reactive) Comment: Antibodies to HCV not detected. Does not exclude the possiblity of exposure to HCV. Specimen Anatomical Collection Method / Collection Time Recei giselle Time (Source) Location / Volume Laterality Blood Venipuncture / 06/28/2021 2:27 06/28/2021 2:28 Unknown PM CDT PM CDT Lorenza Q Black DO LAB_1 Performing Organization Address City/[facility] Code Phon e Number [facility] [address] [place] [address] Liver Panel(Hepatic Function Panel) (06/28/2021 2:27 PM CDT) athologist [facility] Alkaline 70 40 - 150 06/28/2021 [facility] Phosphatase U/L 5:11 PM CDT LABORATORY Bilirubin, Total 0.5 0.2 - 1.2 06/28/2021 [facility] mg/dL 5:11 PM CDT LABORATORY Bilirubin, 0.2 0.0 - 0.5 06/28/2021 [facility] Direct mg/dL 5:11 PM CDT LABORATORY AST (SGOT) 18 10 - 40 06/28/2021 [facility] U/L 5:11 PM CDT LABORATORY ALT (SGPT) 21 0 - 55 U/L 06/28/2021 [facility] 5:11 PM CDT LABORATORY Protein, Total 6.5 6.4 - 8.3 06/28/2021 [facility] g/dL 5:11 PM CDT LABORATORY Albumin 3.9 3.5 - 5.0 06/28/2021 [facility] g/dL 5:11 PM CDT LABORATORY Specimen Anatomical Collection Method / Collection Time Recei giselle Time (Source) Location / Volume Laterality Blood Venipuncture / 06/28/2021 2:27 06/28/2021 2:28 Unknown PM CDT PM CDT Lorenza Q Black DO LAB_1 Performing Organization Address City/[facility]/ZIP [facility] Phon e Number [facility] [address] [place] [address] (ABNORMAL) Creatinine / GFR (06/28/2021 2:27 PM CDT) [facility] gist Method Time Signature Creatinine 0.40 (L) 0.55 - 06/28/2021 [facility] 1.02 mg/dL 5:11 PM CDT LABORATORY GFR, Estimated >60 >60 06/28/2021 [facility] mL/min/1.7 5:11 PM CDT LABORATORY 3m2 Specimen Anatomical Collection Method / Collection Time Recei giselle Time (Source) Location / Volume Laterality Blood Venipuncture / 06/28/2021 2:27 06/28/2021 2:28 Unknown PM CDT PM CDT Lorenza Q Black DO LAB_1 Performing Organization Address City/State/ZIP Code Phon e Number [facility] [address] [place] [address] documented in this encounter Visit Diagnoses Diagnosis 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) documented in this encounter Care Teams Fat Pressroom Worker Relationship Specialty Start Date End Date Flo Mckeon MD PCP - General 06/21/211999 [place] [address] documented as of this encounter
--- OUTSIDE RECORDS SUMMARY | 2022-07-15 14:28 | XMS_ITS | Encounter Summary ---
:1945 Author Organization [facility] Address [address], [place] [address] Care Team Providers Name Role Phone Flo Mckeon MD Primary Care Provider Reason for Visit Procedure/Equipment (Routine) - Incomplete Specialty Diagnoses / Procedures Referred By Contact Refer red To Contact Diagnoses 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) Lorenza Black, DO Procedures XR Shoulder Rt 2+ Views [address] [place], [place] [address] Referral ID Status Reason Start Date Expiration Date Visits V isits Requested Authorized [id number] Incomplete 06/28/2021 09/27/2022 1 1 Encounter Details Date Type Department Care Team Description 06/28/2021 Ancillary [place] Lorenza Black, DO Rheumatoid arthritis Procedure Radiology [address] involving multiple [address] [facility] sites with positive [address] [place], [place] [address] (HRC) [phone] Social History Tobacco Use Types Packs/Day Years Used Date Smoking Tobacco: Never Assessed Sex Assigned at Date Recorded Not on file documented as of this encounter Plan of Treatment Not on filedocumented as of this encounter Procedures Procedure Name Priority Date/Time Associated Diagnosis Comme nts XR SHOULDER RT 2+ Routine 06/28/2021 2:55 PM Rheumatoid arthri tis Results for this VIEWS CDT involving multiple procedure are in sites with positive the resu lts rheumatoid factor section. (HR) documented in this encounter Results XR Shoulder Rt 2+ Views (06/28/2021 2:55 [...] degenerative arthrosis of the AC joint. Lorenza Q Black DO RAD GD documented in this encounter Visit Diagnoses Diagnosis 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) documented in this encounter Care Teams Band Lining Bander Relationship Specialty Start Date End Date Flo Mckeon MD PCP - General 06/21/211999 [place] [address] documented as of this encounter
--- OUTSIDE RECORDS SUMMARY | 2022-07-15 14:28 | XMS_ITS | Clinical Summary ---
:1945 Author Organization [employer] Address [address] [place] [address] Care Team Providers Name Role Phone Flo Mckeon MD Primary Care Provider Source Comments You are receiving this document as you are listed as the primary care provider,follow-up provider, or the patient has been referred to you for consultation.This is in compliance with the Medicare and Medicaid EHR Incentive Program,which states Providers who transition their patient to another setting of careor provider of care or refers their patient to another provider of care shouldprovide summarycare record for each transition of care or referral. [facility] Medications Medication Sig Dispensed Refills Start Date End Date Status acetaminophen (TYLENOL as needed 0 Active ARTHRITIS) 650 MG controlled release tablet furosemide (LASIX) 20 MG Daily 0 06/11/2021 Active tablet diphenhydrAMINE-APAP Bedtime as 0 Active 25-500 MG tablet needed predniSONE (DELTASONE) 5 10 mg daily. 0 06/11/2021 Active MG tablet aspirin EC 81 MG enteric Daily 0 Active coated tablet naproxen sodium Twice A Day as 0 Active (ANAPROX) 220 MG tablet needed pseudoephedrine Daily 0 Acti ve ([id number]) 120 MG 12 hour release tablet calcium Take 2 Tablets 0 Activ e carbonate-vitamin D by mouth daily. 600-200 MG-UNIT tablet multivitamin (THERAGRAN) Take 1 Tablet by 0 Active tablet mouth daily. methotrexate 2.5 MG Take 7 Tablets 84 Tablet 1 07/02/2021 Active tablet by mouth once every week. 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 Encounters Date Type Specialty Care Team Description 06/13/2022 Refill Rheumatology Black, Lorenza Hernández, DO Refill from Last 3 Months Immunizations Name Administration Dates Next Due DT Ped 03/23/1987 Social History Tobacco Use Types Packs/Day Years Used Date Smoking Tobacco: Never Assessed Sex Assigned at Date Recorded Not on file Plan of Treatment Health Maintenance Due Date Last Done Comments Colon Cancer Screening Plan 1945 Due Medicare Welcome Visit 1945 Mammogram 1945 COVID-19 Vaccine (#1) 07[birth year]02/1946 Zoster/Shingles (1 of 2) 1996 Dexa 12/31/2011 Pneumococcal 65+ Yrs (1 - 12/31/2011 PCV) Influenza (#1) 2022 07/18/2009, 07/18/2009 DTaP/Tdap/Td (5 - Tdap) 04/22/2028 04/22/2018, 04/22/2015, 04/26/2008, Additional history exists Hep C Screening (Preventive Completed 06/28/2021 Services) HepA Aged Out No longer eligib le based on patient 's age to complete this topic HepB Aged Out No longer eligib le based on patient 's age to complete this topic Hib Aged Out No longer eligib le based on patient 's age to complete this topic IPV (Polio) Aged Out No longer eligib le based on patient 's age to complete this topic MCV4 Aged Out No longer eligib le based on patient 's age to complete this topic Insurance Payer Benefit Plan / Subscriber ID Effective Dates Phone Addre ss Type Group AETNA AETNA [employer] [id number] 2019-Present [phone] [address] Medicare MEDICARE 2 [place], [place] ADVANTAGE [id number] [place], Personal/Family Self 1945 [id number] [facility] ([place]) [place] [address] Care Teams Customer Services Supervisor Relationship Specialty Start Date End Date Flo Mckeon MD PCP - General 06/21/211999 [place] [address]
--- OUTSIDE RECORDS SUMMARY | 2022-07-15 14:28 | XMS_ITS | Encounter Summary ---
:1945 [facility] Address [address] [address] Care Team Providers Name Role Phone Flo Mckeon MD Primary Care Provider Reason for Visit Reason Comments Phone Visit Follow-up Encounter Details Date Type Department Care Team Description 09/13/2021 Phone Visit [place] Lorenza Black DO Rheumatoid arthritis, Rheumatology [address] [facility] involving unspecified [address] [facility] site, unspecified [place], [place] [id number] [place] [address] whether rheumatoid [phone] factor present (HRC) [phone] (Wo rk) (Primary Dx) Social History Tobacco Use Types Packs/Day Years Used Date Smoking Tobacco: Never Assessed Sex Assigned at Date Recorded Not on file documented as of this encounter Progress Notes Lorenza Black DO - 09/13/2021 2:45 PM CST Error ITE POLISHER documented in this encounter Plan of Treatment Not on filedocumented as of this encounter Visit Diagnoses Diagnosis Rheumatoid arthritis, involving unspecif ied site, unspecified whether rheumatoid factor present (HRC) - Primary documented in this encounter Care Teams Automatic Gluing Machine Operator Relationship Specialty Start Date End Date Flo Mckeon MD PCP - General 06/21/211999 [place] [address] documented as of this encounter
--- OUTSIDE RECORDS SUMMARY | 2022-07-15 14:28 | XMS_ITS | Encounter Summary ---
:1945 Author Organization [facility] Address [address], [place] [address] Care Team Providers Name Role Phone Flo Mckeon MD Primary Care Provider Reason for Visit Reason Comments LAB RESULTS Encounter Details Date Type Department Care Team Description 07/02/[address] [facility] [address] Lorenza Black DO LAB RESULTS Rheumatology [address] [place] [address] [place], [place] [address] [phone] Social History Tobacco Use Types Packs/Day Years Used Date Smoking Tobacco: Never Assessed Sex Assigned at Date Recorded Not on file documented as of this encounter Nursing Notes Akiko Vega LPN - 07/02/2021 10:42 AM CDT Patient informed. Verbalized understanding. Lorenza Black DO - 07/02/2021 10:15 AM CDT Labs demonstrate seronegative rheumatoid arthritis xrays read by me indicate both osteoarthritis and sequelae of rheumatoid arthritis. I want her to start on methotrexate with folic acid MTX: 7 pills per week Folic Acid: 1 pill a day Still keep follow up Jul 31 documented in this encounter Plan of Treatment Not on filedocumented as of this encounter Visit Diagnoses Diagnosis Rheumatoid arthritis with negative rheum atoid factor, involving unspecified site (HRC) - Primary Encounter for long-term (current) use of medications Encounter for long-term (current) use of other medications documented in this encounter Care Teams Business Technology Teacher Relationship Specialty Start Date End Date Flo Mckeon MD PCP - General 06/21/211999 [place] [address] documented as of this encounter
--- OUTSIDE RECORDS SUMMARY | 2022-07-15 14:28 | XMS_ITS | Clinical Summary ---
:1945 Author Organization [employer] [facility] [place] [address] Care Team Providers Name Role Phone Kallie Tamayo STATIC BALANCER Unavailable [facility], [facility] Unavailable Flo Mckeon MD Primary Care Provider Allergies No known active allergies Medications Medication Sig Dispensed Refills Start Date End Date Status doxycycline Take 1 capsule 28 capsule 0 01/18/2014 A ctive (VIBRAMYCIN) 100 mg by mouth 2 times capsule daily. ibuprofen (ADVIL; Take 2 tablets 0 01/18/2014 Active MOTRIN) 200 mg tablet by mouth once daily. predniSONE (DELTASONE) Take 1 tablet by 0 01/18/2014 Active 10 mg tablet mouth once daily with a meal. mineral oil-hydrophil Apply topically 1 Tube 0 01/18/2014 Active petrolat (AQUAPHOR) to affected oint area(s) once daily. pseudoephedrine 60 mg qd 0 01/18/2014 Act job (SUDAFED) 60 mg tablet sennosides (SENNA) 8.6 Take 1 tablet by 0 01/18/2014 Active mg tablet mouth once daily. traZODone (DESYREL) 50 Take 1 tablet by 0 01/18/2014 Active mg tablet mouth at bedtime. polyethylene glycoL Take 17 g by 0 01/18/2014 Active (MIRALAX) 17 gram/dose mouth once daily powder if needed for Constipation. oxyCODONE (ROXICODONE) 5 mg q3hrs prn 0 01/18/2014 Active 5 mg capsule famotidine (PEPCID) 20 Take 1 tablet by 0 01/28/2014 Active mg tablet mouth once daily. 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 Paraplegia 01/18/2014 Rheumatoid arthritis 01/18/2014 Seasonal allergies 01/18/2014 Low back pain radiating to right leg 01/18/2014 Neurogenic bladder 01/18/2014 A-fib 01/18/2014 Constipation 01/18/2014 Scoliosis 01/18/2014 Encounters Date Type Specialty Care Team Description 04/24/2022 Lab Requisition Soco Malik NP from Last 3 Months Social History Tobacco Use Types Packs/Day Years Used Date Never Assessed Sex Assigned at Date Recorded Not on file Obstetrics History Last Filed Vital Signs Vital Sign Reading Time Taken Comments Blood Pressure 109/56 01/21/2014 8:48 AM CDT Pulse 90 01/21/2014 8:48 AM CDT Temperature 36.5 ??C (97.7 ??F) 01/21/2014 8:48 AM CDT Respiratory Rate 16 01/21/2014 8:48 AM CDT Oxygen Saturation 91% 01/21/2014 8:48 AM CDT Inhaled Oxygen Concentration - - Weight 59.1 kg (130 lb 5 oz) 01/21/2014 8:48 AM CDT Height - - Body Mass Index - - Plan of Treatment Health Maintenance Due Date Last Done Comments COVID-19 vaccine series (#1) 07[birth year]02/1946 Tdap 1957 Depression screening for age 12+ 1958 BMI (ht and wt on same day) for age 18+ 1964 Hepatitis C screening for age 18-79 1964 Tetanus booster 1966 Colonoscopy through age 75 12/31/1991 Lipids for age 45-75 12/31/1991 Mammogram for age 45-75 12/31/1991 Zoster (shingles) series for age 50+ (1 of 2) 1996 DEXA/DXA scan for age 65+ 12/31/2011 Pneumococcal series for age 65+ (1 - PCV) 12/31/2011 Influenza for age 65+ 06/13/2022 Procedures Procedure Name Priority Date/Time Associated Diagnosis Comme nts REFERRAL Routine 04/22/2022 6:32 PM Results f or this ID/SUSC,NONURINE CDT procedure a re in the results section. from Last 3 Months Results (ABNORMAL) REFERRAL ID/SUSC,NONURINE (04/22/2022 6:32 PM CDT) [facility] Method Time Signature CULTURE RESULT (A) 04/27/2022 [facility] 9:56 AM CDT LABORATORY-CE NTRAL LABORATORY CULTURE Streptococcus 04/27/2022 [facility] dysgalactiae 9:56 AM CDT LABORATORY-CE (Beta Strep group NTRAL C or G) LABORATORY Specimen Anatomical Collection Method Collection Time Receive d Time (Source) Location / / Volume Laterality Other (Right Client Collect / 04/22/2022 6:32 PM 04/24 9:01 Buttock) Unknown CDT PM CDT Organism Antibiotic Method Susceptibility Streptococcus dysgalactiae (Beta Strep group C PENICILLIN <=0.06: S or G) Streptococcus dysgalactiae (Beta Strep group C CEFTRIAXONE <=0.12: S or G) Streptococcus dysgalactiae (Beta Strep group C ERYTHROMYCIN >=8: R or G) Streptococcus dysgalactiae (Beta Strep group C CLINDAMYCIN >=1: R or G) Streptococcus dysgalactiae (Beta Strep group C VANCOMYCIN 0.5: S or G) Streptococcus dysgalactiae (Beta Strep group C AMPICILLIN <=0.25: S or G) Streptococcus dysgalactiae (Beta Strep group C CLARITHROMYCIN R or G) [facility] NP MICROBIOLOGY Performing Organization Address City/State/ZIP Code Phon e Number [facility] [address] [place] [address] LABORATORY-CENTRAL 2000 LABORATORY from Last 3 Months Insurance Payer Benefit Plan / Subscriber ID Effective Dates Phone Addre ss Type Group MEDICARE PPS HC MEDICARE [id number] 2011-Presen [address] [place] [address] [employer] [id number] 2019-Presen [address] AETNA MR [place] [address] Josh Major Personal/Famil Self 1945 [address] (Home) [place] [phone] (Work) Care Teams Reversing Mill Roller Relationship Specialty Start Date End Date Flo Mckeon MD PCP - General Family Practice 10/04/211999 [place] [address] Kallie Tamayo, STATIC BALANCER Family Practice 01/17/14 [address] [facility] [address] [place], [place] [id number] [facility] 01/29/14
== END 2022-07-15 14:28 | disposition home or self-care (01) ==
LOC: WOUND 14:27
PROVIDERS: PCP Family Medicine; Visit Provider Nurse Practitioner Family
DX: L89.314 Pressure ulcer of right buttock, stage 4 (principal)
CPT/HCPCS: 11042; 97605

== ENCOUNTER 2022-07-22 14:22 | Outpatient (CLI) | payer OTHER, SELFPAY ==
--- OUTSIDE RECORDS SUMMARY | 2022-07-22 14:23 | XMS_ITS | Clinical Summary ---
:1945 Author Organization [employer] Address [address] [place] [address] Care Team Providers Name Role Phone Flo [...] for each transition of care or referral. [facility] Medications Medication Sig Dispensed Refills Start Date [...] tablet needed pseudoephedrine Daily 0 Acti ve ([id number]) 120 MG 12 hour release tablet calcium [...] Addre ss Type Group AETNA AETNA [employer] [id number] 2019-Present [phone] [address] Medicare MEDICARE 2 [place]VANT[place] [address] Pedrito, Personal/Family Self 1945 [address] [facility] [place] [address] Care Teams Spout Liner Relationship Specialty Start Date End Date Flo Mckeon MD PCP - General 06/21/211999 [place] [address]
--- OUTSIDE RECORDS SUMMARY | 2022-07-22 14:23 | XMS_ITS | Clinical Summary ---
:1945 Author Organization [employer] [facility] [place] [address] Care Team Providers Name Role Phone Kallie Tamayo TERRY CLOTH CUTTER HAND Unavailable [facility], [facility] Unavailable Flo Mckeon MD Primary Care [...] (ABNORMAL) REFERRAL ID/SUSC,NONURINE (04/22/2022 6:32 PM CDT) [facility] Method Time Signature CULTURE RESULT (A) 04/27/2022 [facility] 9:56 AM CDT LABORATORY-CE NTRAL LABORATORY CULTURE Streptococcus 04/27/2022 [facility]galactiae 9:56 AM CDT LABORATORY-CE (Beta Strep [...] Organization Address City/State/ZIP Code Phon e Number [facility] [address] [place] [address] LABORATORY-CENTRAL 2000 LABORATORY from Last 3 Months Insurance Payer Benefit Plan / Subscriber ID Effective Dates Phone Addre ss Type Group MEDICARE PPS HC MEDICARE [id number] 2011-[place] [address] [place] [address] [email or web address] [id number] 2019-Presen [address] AETNA MR [place] [address] Josh Major Personal/Famil Self [address] [place]Home) [place] [phone] (Work) Care Teams Fur Farmer Relationship Specialty Start Date End Date Flo Mckeon MD PCP - General Family Practice 10/04/211999 [place] [address] Kallie Tamayo, TERRY CLOTH CUTTER HAND Family Practice 01/17/14 [address] [facility] [address] [place], [place] [id number] Leslie [facility] 01/29/14
--- OUTSIDE RECORDS SUMMARY | 2022-07-22 14:24 | XMS_ITS | Encounter Summary ---
:1945 Author Organization [facility] Address [address], [place] [address] Care Team Providers Name Role Phone Flo Mckeon MD Primary Care Provider Encounter Details Date Type Department Care Team Description 06/28/2021 Lab Visit [facility] Rheumatoid arthritis [address] [place] [address] with positive rheumatoid [phone] factor (HRC) Social History Tobacco Use Types [...] CDT) athologist Signature MITOGEN >10.000 IU/mL 07/02/2021 [facility] 8:53 AM CDT LABORATORY Specimen Anatomical Collection Method / Collection Time Recei giselle Time (Source) Location / Volume Laterality Blood Venipuncture / 06/28/2021 2:28 06/28/2021 2:28 Unknown PM CDT PM CDT [facility] LAB_1 Performing Organization Address [facility] Phon e Number [facility] [address] [place] [address] TB QuantiFERON Gold Plus TB2 (06/28/2021 2:28 PM CDT) P athologist Signature TB2 0.081 IU/mL 07/02/2021 [facility] 8:53 AM CDT LABORATORY Specimen Anatomical Collection Method / Collection Time Recei giselle Time (Source) Location / Volume Laterality Blood Venipuncture / 06/28/2021 2:28 06/28/2021 2:28 Unknown PM CDT PM CDT [facility] LAB_1 Performing Organization Address [facility] Phon e Number [facility] [address] [place] [address] TB QuantiFERON Gold Plus TB1 (06/28/2021 2:28 PM CDT) P athologist Signature TB1 0.094 IU/mL 07/02/2021 [facility] 8:54 AM CDT LABORATORY Specimen Anatomical Collection Method / Collection Time Recei giselle Time (Source) Location / Volume Laterality Blood Venipuncture / 06/28/2021 2:28 06/28/2021 2:28 Unknown PM CDT PM CDT [facility] LAB_1 Performing Organization Address [facility] Phon e Number [facility] [address] [place] [address] TB QuantiFERON Gold Plus NIL (06/28/2021 2:28 PM CDT) [facility] gist Method Time Signature 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 NIL 0.024 IU/mL 07/02/2021 [facility] 8:54 AM LABORATORY CDT TB1-NIL 0.07 IU/mL 07/02/2021 [facility] 8:54 AM LABORATORY CDT TB2-NIL 0.06 IU/mL 07/02/2021 [facility] 8:54 AM LABORATORY CDT Mitogen-NIL 9.98 IU/mL 07/02/2021 [facility] 8:54 AM LABORATORY CDT Specimen Anatomical Collection Method / Collection Time Recei giselle Time (Source) Location / Volume Laterality Blood Venipuncture / 06/28/2021 2:28 06/28/2021 2:28 Unknown PM CDT PM CDT Narrative [facility] - 07/02/2021 8:54 A M CDT [...] Organization Address City/State/ZIP Code Phon e Number [facility] [address] [place] [address] (ABNORMAL) Complete Blood Count-W/Diff (06/28/2021 2:28 PM CDT) [facility] Method Time Signature WBC 12.1 (H) 3.5 - 10.5 06/28/2021 [facility] x10(9)/L 2:44 PM CDT LABORATORY RBC 5.26 (H) 3.90 - 06/28/2021 [facility] 5.03 2:44 PM CDT LABORATORY x10(12)/L Hemoglobin 15.2 12.0 - 06/28/2021 [facility] 15.5 g/dL 2:44 PM CDT LABORATORY HCT 48.5 (H) 34.9 - 06/28/2021 [facility] 44.5 % 2:44 PM CDT LABORATORY MCV 92.2 80.0 - 06/28/2021 [facility] 100.0 fL 2:44 PM CDT LABORATORY MCH 28.9 27.6 - 06/28/2021 [facility] 33.3 pg 2:44 PM CDT LABORATORY MCHC 31.3 (L) 31.5 - 06/28/2021 [facility] 35.2 g/dL 2:44 PM CDT LABORATORY RDW 13.8 11.9 - 06/28/2021 [facility] 15.5 % 2:44 PM CDT LABORATORY Platelets 307 150 - 450 06/28/2021 [facility] x10(9)/L 2:44 PM CDT LABORATORY Automated NRBC 0 <=0 /100 06/28/2021 [facility] WBC 2:44 PM CDT LABORATORY Neutrophil 10.8 (H) 1.7 - 7.0 06/28/2021 [facility] Absolute 10(9)/L 2:44 PM CDT LABORATORY Lymphocyte 0.9 (L) 1.0 - 4.8 06/28/2021 [facility] Absolute 10(9)/L 2:44 PM CDT LABORATORY Monocytes 0.3 0.2 - 0.9 06/28/2021 [facility] Absolute 10(9)/L 2:44 PM CDT LABORATORY Eosinophil 0.0 0.0 - 0.5 06/28/2021 [facility] Absolute 10(9)/L 2:44 PM CDT LABORATORY Basophil 0.0 0.0 - 0.3 06/28/2021 [facility] Absolute 10(9)/L 2:44 PM CDT LABORATORY Immature Gran % 0.7 (H) 0.0 - 0.5 06/28/2021 [facility] % 2:44 PM CDT LABORATORY Specimen Anatomical Collection Method / Collection Time Recei giselle Time (Source) Location / Volume Laterality Blood Venipuncture / 06/28/2021 2:28 06/28/2021 2:28 Unknown PM CDT PM CDT Magnolia Fashiono DO LAB_1 Performing Organization Address City/State/ZIP Code Phon e Number [facility] [address] [place] [address] Rheumatoid Factor, Quant (06/28/2021 2:27 PM CDT) Analysis Performed At Path logist Time Signature Rheumatoid <15 <=30 IU/mL 06/28/2021 [facility] Factor, 7:52 PM CDT LABORATORY Quantitative Specimen Anatomical Collection Method / Collection Time Recei giselle Time (Source) Location / Volume Laterality Blood Venipuncture / 06/28/2021 2:27 06/28/2021 2:28 Unknown PM CDT PM CDT Magnolia Fashiono DO LAB_1 Performing Organization Address City/State/ZIP Code Phon e Number [facility] [address] [place] [address] Anti-CCP Antibody (06/28/2021 2:27 PM CDT) [facility] Method Time Signature Anti-CCP Antibody 1 <7 U/mL 06/29/2021 [facility] 1:16 PM CDT [facility] Anti-CCP Antibody Negative Negative 06/29/2021 [facility] Interpretation 1:16 PM CDT C[facility]AL LAB Specimen Anatomical Collection Method / Collection Time Recei giselle Time (Source) Location / Volume Laterality Blood Venipuncture / 06/28/2021 2:27 06/28/2021 2:28 Unknown PM CDT PM CDT Lorenza Tredo DO LAB_1 Performing Organization Address City/[facility]/ZIP Code Phon e Number [facility] [address] [address] Hepatitis B Surface Antigen (06/28/2021 2:27 PM CDT) [facility] Method Time Signature Hepatitis B Negative Negative 06/28/2021 [facility] Surface (Non (Non 8:12 PM CDT LABORATORY Antigen Reactive) Reactive) Specimen Anatomical Collection Method / Collection Time Recei giselle Time (Source) Location / Volume Laterality Blood Venipuncture / 06/28/2021 2:27 06/28/2021 2:28 Unknown PM CDT PM CDT Lorenza Priceza DO LAB_1 Performing Organization Address City/[facility] Code Phon e Number [facility] [address] [place] [address] HIV 1/2 Ag/Ab 4th Generation (06/28/2021 2:27 PM CDT) [facility] Method Time Signature HIV 1/2 Negative Negative 06/28/2021 [facility] Antigen/Antib (Non (Non 7:52 PM CDT LABORATORY zachary (4th Reactive) Reactive) generation) Comment: HIV-1 p24 Antigen and HIV-1/HIV -2 Antibody not detected Specimen Anatomical Collection Method / Collection Time Recei giselle Time (Source) Location / Volume Laterality Blood Venipuncture / 06/28/2021 2:27 06/28/2021 2:28 Unknown PM CDT PM CDT Lorenza Priceza DO LAB_1 Performing Organization Address [facility]/ZIP Code Phon e Number [facility] [address] [place] [address] Hepatitis C Antibody, with Reflex (06/28/2021 2:27 PM CDT) Path[facility] gist Method Time Signature Hepatitis C Negative Negative 06/28/2021 [facility] Antibody (Non (Non 7:52 PM CDT LABORATORY Reactive) Reactive) Comment: Antibodies to HCV not detected. Does not exclude the possiblity of exposure to HCV. Specimen Anatomical Collection Method / Collection Time Recei giselle Time (Source) Location / Volume Laterality Blood Venipuncture / 06/28/2021 2:27 06/28/2021 2:28 Unknown PM CDT PM CDT Lorenza Q Black DO LAB_1 Performing Organization Address City/[facility] Code Phon e Number [facility] [address] [place] [address] Liver Panel(Hepatic Function Panel) (06/28/2021 2:27 PM CDT) athologist [facility] Alkaline 70 40 - 150 06/28/2021 [facility] Phosphatase U/L 5:11 PM CDT LABORATORY Bilirubin, Total 0.5 0.2 - 1.2 06/28/2021 [facility] mg/dL 5:11 PM CDT LABORATORY Bilirubin, 0.2 0.0 - 0.5 06/28/2021 [facility] Direct mg/dL 5:11 PM CDT LABORATORY AST (SGOT) 18 10 - 40 06/28/2021 [facility] U/L 5:11 PM CDT LABORATORY ALT (SGPT) 21 0 - 55 U/L 06/28/2021 [facility] 5:11 PM CDT LABORATORY Protein, Total 6.5 6.4 - 8.3 06/28/2021 [facility] g/dL 5:11 PM CDT LABORATORY Albumin 3.9 3.5 - 5.0 06/28/2021 [facility] g/dL 5:11 PM CDT LABORATORY Specimen Anatomical Collection Method / Collection Time Recei giselle Time (Source) Location / Volume Laterality Blood Venipuncture / 06/28/2021 2:27 06/28/2021 2:28 Unknown PM CDT PM CDT Lorenza Q Black DO LAB_1 Performing Organization Address City/[facility]/ZIP [facility] Phon e Number [facility] [address] [place] [address] (ABNORMAL) Creatinine / GFR (06/28/2021 2:27 PM CDT) [facility] gist Method Time Signature Creatinine 0.40 (L) 0.55 - 06/28/2021 [facility] 1.02 mg/dL 5:11 PM CDT LABORATORY GFR, Estimated >60 >60 06/28/2021 [facility] mL/min/1.7 5:11 PM CDT LABORATORY 3m2 Specimen Anatomical Collection Method / Collection Time Recei giselle Time (Source) Location / Volume Laterality Blood Venipuncture / 06/28/2021 2:27 06/28/2021 2:28 Unknown PM CDT PM CDT Lorenza Q Black DO LAB_1 Performing Organization Address City/State/ZIP Code Phon e Number [facility] [address] [place] [address] documented in this encounter Visit Diagnoses Diagnosis 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) documented in this encounter Care Teams Supervisor Poultry Farm Relationship Specialty Start Date End Date Flo Mckeon MD PCP - General 06/21/211999 [place] [address] documented as of this encounter
--- OUTSIDE RECORDS SUMMARY | 2022-07-22 14:24 | XMS_ITS | Encounter Summary ---
:1945 Author Organization [facility] Address [address] [address] Care Team Providers Name Role Phone Flo Mckeon MD Primary Care Provider Reason for Visit Reason Comments Phone Visit Follow-up Encounter Details Date Type Department Care Team Description 09/13/2021 Phone Visit [facility] Lorenza Black DO Rheumatoid arthritis, Rheumatology [address] [facility] involving unspecified [address] [facility] site, unspecified [place], [place] [address] [place] [address] whether rheumatoid [phone] factor present (HRC) [phone] (Wo rk) (Primary Dx) Social History Tobacco Use Types Packs/Day Years Used Date Smoking Tobacco: Never Assessed Sex Assigned at Date Recorded Not on file documented as of this encounter Progress Notes Lorenza Black DO - 09/13/2021 2:45 PM CST Error NCE AGENT documented in this encounter Plan of Treatment Not on filedocumented as of this encounter Visit Diagnoses Diagnosis Rheumatoid arthritis, involving unspecif ied site, unspecified whether rheumatoid factor present (HRC) - Primary documented in this encounter Care Teams Home Health Physical Therapist Relationship Specialty Start Date End Date Flo Mckeon MD PCP - General 06/21/211999 [place] [address] documented as of this encounter
--- OUTSIDE RECORDS SUMMARY | 2022-07-22 14:24 | XMS_ITS | Encounter Summary ---
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) Lorenza Black, DO Procedures XR Shoulder Rt 2+ Views [address] [place], [place] [address] Referral ID Status Reason Start Date Expiration Date Visits V isits Requested Authorized [id number] Incomplete 06/28/2021 09/27/2022 1 1 Encounter Details Date Type Department Care Team Description 06/28/2021 Ancillary [place] Lorenza Black, DO Rheumatoid arthritis Procedure Radiology [address] [place] involving multiple [address] [facility] sites with positive [address] [place], [place] [address] (HRC) [phone] Social History Tobacco Use Types Packs/Day Years [...] (HRC) documented in this encounter Care Teams Assembler Molded Frames Relationship Specialty Start Date End Date Flo Mckeon MD PCP - General 06/21/211999 [place] [address] documented as of this encounter
--- OUTSIDE RECORDS SUMMARY | 2022-07-22 14:24 | XMS_ITS | Encounter Summary ---
:1945 Author Organization [facility] Address [address], [place] [address] Care Team Providers Name Role Phone Flo Mckeon MD Primary Care Provider Reason for Visit Reason Comments Refill Encounter Details Date Type Department Care Team Description 12/12/2021 Refill [facility] [address] Lorenza Black, DO Refill Rheumatology [address] [place] [address] [place] [address] [phone] Social History Tobacco Use Types Packs/Day Years Used Date Smoking Tobacco: Never Assessed Sex Assigned at Date Recorded Not on file documented as of this encounter Nursing Notes Akiko Vega LPN - 12/12/2021 12:22 PM CST Left message informing patient. NAIL RASPER Mercy Roman PA-C - 12/12/2021 12:18 PM [...] with Dr. Black as soon as possible. NAIL RASPER documented in this encounter Plan of Treatment Not on filedocumented as of this encounter Visit Diagnoses Not on filedocumented in this encounter Care Teams Immigration Guard Relationship Specialty Start Date End Date Flo Mckeon MD PCP - General 06/21/211999 [place], [place] [id number] documented as of this encounter
--- OUTSIDE RECORDS SUMMARY | 2022-07-22 14:24 | XMS_ITS | Encounter Summary ---
:1945 Author Organization [employer] Address [address], [place] [address] Care Team Providers Name Role Phone Flo Mckeon MD Primary Care Provider Reason for Visit Reason Comments LAB RESULTS Encounter Details Date Type Department Care Team Description 07/02/2021 Telephone [facility] [address] Lorenza Black DO LAB RESULTS Rheumatology [address] [place] [address] [place], [place] [address] [phone] Social History Tobacco Use Types Packs/Day Years [...] medications documented in this encounter Care Teams Olive Grader Relationship Specialty Start Date End Date Flo Mckeon MD PCP - General 06/21/211999 [place] [address] documented as of this encounter
--- OUTSIDE RECORDS SUMMARY | 2022-07-22 14:24 | XMS_ITS | Encounter Summary ---
:1945 Author Organization [employer] Address [address] [address] Care Team Providers Name Role Phone Flo Mckeon MD Primary Care Provider Reason for Visit Reason Comments Refill Encounter Details Date Type Department Care Team Description 06/13/[address] [facility] [address] BlackLorenza, DO Refill Rheumatology [address] [place] [address] [place] [address] [place] [address] [phone] Social History Tobacco Use Types Packs/Day Years [...] medications documented in this encounter Care Teams Nurse Aide Relationship Specialty Start Date End Date Flo Mckeon MD PCP - General 06/21/211999 [place] [address] documented as of this encounter
--- OUTSIDE RECORDS SUMMARY | 2022-07-22 14:24 | XMS_ITS | Encounter Summary ---
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
--- OUTSIDE RECORDS SUMMARY | 2022-07-22 14:24 | XMS_ITS | Encounter Summary ---
:1945 Author Organization [email or web address] Address [address] [place] [address] Care Team Providers Name Role Phone Flo Mckeon MD Primary Care Provider Reason for Visit Reason Comments Phone Visit Follow-up Encounter Details Date Type Department Care Team Description 07/31/2021 Phone Visit [place] Lorenza Black DO Rheumatoid arthritis with negative rheum atoid factor, involving unspecified site (HRC) (Primary Dx); Rheumatology [address] [place] [address] Encounter for long-term (cur rent) use of medications [address] [place] [address] [place], [place] [phone] [address] (Wo rk) Social History Tobacco Use Types [...] The patient is located at Home in [facility]. The consulting provider is located in [place], [place]. documented in this encounter Plan of Treatment Not on filedocumented as of this encounter Visit Diagnoses Diagnosis Rheumatoid arthritis with negative rheum atoid factor, involving unspecified site (HRC) - Primary Encounter for long-term (current) use of medications Encounter for long-term (current) use of other medications documented in this encounter Care Teams Steel Erecting Pusher Relationship Specialty Start Date End Date Flo Mckeon MD PCP - General 06/21/211999 [place] [address] documented as of this encounter
--- OUTSIDE RECORDS SUMMARY | 2022-07-22 14:24 | XMS_ITS | Encounter Summary ---
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) Black Lorenza Q, DO Procedures XR Hands 1 View Bilat Arthritis [address] [place], [place] [address] Referral ID Status Reason Start Date Expiration Date Visits V isits Requested Authorized [id number] Incomplete 06/28/2021 09/27/2022 1 1 Encounter Details Date Type Department Care Team Description 06/28/2021 Ancillary [place] Black, Lorenza Q, DO Rheumatoid arthritis Procedure Radiology [address] [place] involving multiple [address] [facility] sites with positive [address] [place], [place] [address] (HRC) [phone] Social History Tobacco Use Types Packs/Day Years [...] (HRC) documented in this encounter Care Teams Cracking And Fanning Machine Operator Relationship Specialty Start Date End Date Flo Mckeon MD PCP - General 06/21/211999 [place] [id number] documented as of this encounter
== END 2022-07-22 14:23 | disposition home or self-care (01) ==
LOC: WOUND 14:22
PROVIDERS: PCP Family Medicine; Visit Provider Nurse Practitioner Family
DX: L89.314 Pressure ulcer of right buttock, stage 4 (principal); M86.68 Other chronic osteomyelitis, other site
CPT/HCPCS: 11042; 97605

== ENCOUNTER 2022-07-29 14:25 | Outpatient (CLI) | payer OTHER, SELFPAY ==
--- OUTSIDE RECORDS SUMMARY | 2022-07-29 14:27 | XMS_ITS | Encounter Summary ---
:1945 Author Organization [email or web address] Address [address], [place] [address] Care Team Providers Name Role Phone Flo Mckeon MD Primary Care Provider Encounter Details Date Type Department Care Team Description 06/28/2021 Lab Visit [facility] Rheumatoid arthritis [address] [address] with positive rheumatoid [phone] factor (HRC) Social History Tobacco Use Types [...] CDT) athologist Signature MITOGEN >10.000 IU/mL 07/02/2021 [facility] 8:53 AM CDT LABORATORY Specimen Anatomical Collection Method / Collection Time Recei giselle Time (Source) Location / Volume Laterality Blood Venipuncture / 06/28/2021 2:28 06/28/2021 2:28 Unknown PM CDT PM CDT Lorenza Edgar [facility] LAB_1 Performing Organization Address [facility] Phon e Number [facility] [address] [place] [address] TB QuantiFERON Gold Plus TB2 (06/28/2021 2:28 PM CDT) P athologist Signature TB2 0.081 IU/mL 07/02/2021 [facility] 8:53 AM CDT LABORATORY Specimen Anatomical Collection Method / Collection Time Recei giselle Time (Source) Location / Volume Laterality Blood Venipuncture / 06/28/2021 2:28 06/28/2021 2:28 Unknown PM CDT PM CDT [facility] LAB_1 Performing Organization Address [facility] Phon e Number [facility] [address] [place] [address] TB QuantiFERON Gold Plus TB1 (06/28/2021 2:28 PM CDT) P athologist Signature TB1 0.094 IU/mL 07/02/2021 [facility] 8:54 AM CDT LABORATORY Specimen Anatomical Collection Method / Collection Time Recei giselle Time (Source) Location / Volume Laterality Blood Venipuncture / 06/28/2021 2:28 06/28/2021 2:28 Unknown PM CDT PM CDT [facility] LAB_1 Performing Organization Address 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 NIL 0.024 IU/mL 07/02/2021 [facility] 8:54 AM LABORATORY CDT TB1-NIL 0.07 IU/mL 07/02/2021 [facility] 8:54 AM LABORATORY CDT TB2-NIL 0.06 IU/mL 07/02/2021 [facility] 8:54 AM LABORATORY CDT Mitogen-NIL 9.98 IU/mL 07/02/2021 [facility] 8:54 AM LABORATORY CDT Specimen Anatomical Collection Method / Collection Time Recei giselle Time (Source) Location / Volume Laterality Blood Venipuncture / 06/28/2021 2:28 06/28/2021 2:28 Unknown PM CDT PM CDT Narrative [facility] - 07/02/2021 8:54 A M CDT [...] Code Phon e Number [facility] [address] [place] [address] (ABNORMAL) Complete Blood Count-W/Diff (06/28/2021 2:28 PM CDT) [facility] Method Time Signature WBC 12.1 (H) 3.5 - 10.5 06/28/2021 [facility] x10(9)/L 2:44 PM CDT LABORATORY RBC 5.26 (H) 3.90 - 06/28/2021 [facility] 5.03 2:44 PM CDT LABORATORY x10(12)/L Hemoglobin 15.2 12.0 - 06/28/2021 [facility] 15.5 g/dL 2:44 PM CDT LABORATORY HCT 48.5 (H) 34.9 - 06/28/2021 [facility] 44.5 % 2:44 PM CDT LABORATORY MCV 92.2 80.0 - 06/28/2021 [facility] 100.0 fL 2:44 PM CDT LABORATORY MCH 28.9 27.6 - 06/28/2021 [facility] 33.3 pg 2:44 PM CDT LABORATORY MCHC 31.3 (L) 31.5 - 06/28/2021 [facility] 35.2 g/dL 2:44 PM CDT LABORATORY RDW 13.8 11.9 - 06/28/2021 [facility] 15.5 % 2:44 PM CDT LABORATORY Platelets 307 150 - 450 06/28/2021 [facility] x10(9)/L 2:44 PM CDT LABORATORY Automated NRBC 0 <=0 /100 06/28/2021 [facility] WBC 2:44 PM CDT LABORATORY Neutrophil 10.8 (H) 1.7 - 7.0 06/28/2021 [facility] Absolute 10(9)/L 2:44 PM CDT LABORATORY Lymphocyte 0.9 (L) 1.0 - 4.8 06/28/2021 [facility] Absolute 10(9)/L 2:44 PM CDT LABORATORY Monocytes 0.3 0.2 - 0.9 06/28/2021 [facility] Absolute 10(9)/L 2:44 PM CDT LABORATORY Eosinophil 0.0 0.0 - 0.5 06/28/2021 [facility] Absolute 10(9)/L 2:44 PM CDT LABORATORY Basophil 0.0 0.0 - 0.3 06/28/2021 [facility] Absolute 10(9)/L 2:44 PM CDT LABORATORY Immature Gran % 0.7 (H) 0.0 - 0.5 06/28/2021 [facility] % 2:44 PM CDT LABORATORY Specimen Anatomical Collection Method / Collection Time Recei giselle Time (Source) Location / Volume Laterality Blood Venipuncture / 06/28/2021 2:28 06/28/2021 2:28 Unknown PM CDT PM CDT [employer] DO LAB_1 Performing Organization Address City/State/ZIP Code Phon e Number [facility] [address] [place] [address] Rheumatoid Factor, Quant (06/28/2021 2:27 PM CDT) Analysis Performed At Path logist Time Signature Rheumatoid <15 <=30 IU/mL 06/28/2021 [facility] Factor, 7:52 PM CDT LABORATORY Quantitative Specimen Anatomical Collection Method / Collection Time Recei giselle Time (Source) Location / Volume Laterality Blood Venipuncture / 06/28/2021 2:27 06/28/2021 2:28 Unknown PM CDT PM CDT [employer] DO LAB_1 Performing Organization Address City/State/ZIP Code Phon e Number [facility] [address] [place] [address] Anti-CCP Antibody (06/28/2021 2:27 PM CDT) [facility] Method Time Signature Anti-CCP Antibody 1 <7 U/mL 06/29/2021 [facility] 1:16 PM CDT CENTRAL LAB Anti-CCP Antibody Negative Negative 06/29/2021 [facility] E[facility] Interpretation 1:16 PM CDT CENTRAL LAB Specimen Anatomical Collection Method / Collection Time Recei giselle Time (Source) Location / Volume Laterality Blood Venipuncture / 06/28/2021 2:27 06/28/2021 2:28 Unknown PM CDT PM CDT Lorenza [employer] DO LAB_1 Performing Organization Address City/[facility]/ZIP Code Phon e Number [facility] [address] [address] Hepatitis B Surface Antigen (06/28/2021 2:27 PM CDT) [facility] Method Time Signature Hepatitis B Negative Negative 06/28/2021 [facility] Surface (Non (Non 8:12 PM CDT LABORATORY Antigen Reactive) Reactive) Specimen Anatomical Collection Method / Collection Time Recei giselle Time (Source) Location / Volume Laterality Blood Venipuncture / 06/28/2021 2:27 06/28/2021 2:28 Unknown PM CDT PM CDT Lorenza [email or web address] DO LAB_1 Performing Organization Address City/[facility] Code Phon e Number [facility] [address] [facility] [place] [address] HIV 1/2 Ag/Ab 4th Generation (06/28/2021 2:27 PM CDT) [facility] Method Time Signature HIV 1/2 Negative Negative 06/28/2021 [facility] Antigen/Antib (Non (Non 7:52 PM CDT LABORATORY zachary (4th Reactive) Reactive) generation) Comment: HIV-1 p24 Antigen and HIV-1/HIV -2 Antibody not detected Specimen Anatomical Collection Method / Collection Time Recei giselle Time (Source) Location / Volume Laterality Blood Venipuncture / 06/28/2021 2:27 06/28/2021 2:28 Unknown PM CDT PM CDT Lorenza [email or web address] DO LAB_1 Performing Organization Address [facility]/ZIP Code Phon e Number [facility] [address] [place] [address] Hepatitis C Antibody, with Reflex (06/28/2021 2:27 [...] Q Black DO LAB_1 Performing Organization Address City/[facility] Code Phon e Number [facility] [address] [place] [address] Liver Panel(Hepatic Function Panel) (06/28/2021 2:27 PM CDT) athologist [facility] Alkaline 70 40 - 150 06/28/2021 [facility] Phosphatase U/L 5:11 PM CDT LABORATORY Bilirubin, Total 0.5 0.2 - 1.2 06/28/2021 [facility] mg/dL 5:11 PM CDT LABORATORY Bilirubin, 0.2 0.0 - 0.5 06/28/2021 [facility] Direct mg/dL 5:11 PM CDT LABORATORY AST (SGOT) 18 10 - 40 06/28/2021 [facility] U/L 5:11 PM CDT LABORATORY ALT (SGPT) 21 0 - 55 U/L 06/28/2021 [facility] 5:11 PM CDT LABORATORY Protein, Total 6.5 6.4 - 8.3 06/28/2021 [facility] g/dL 5:11 PM CDT LABORATORY Albumin 3.9 3.5 - 5.0 06/28/2021 [facility] g/dL 5:11 PM CDT LABORATORY Specimen Anatomical Collection Method / Collection Time Recei giselle Time (Source) Location / Volume Laterality Blood Venipuncture / 06/28/2021 2:27 06/28/2021 2:28 Unknown PM CDT PM CDT Lorenza Q Black DO LAB_1 Performing Organization Address City/[facility]/ZIP [facility] Phon e Number [facility] [address] [place] [address] (ABNORMAL) Creatinine / GFR (06/28/2021 2:27 PM CDT) [facility] gist Method Time Signature Creatinine 0.40 (L) 0.55 - 06/28/2021 [facility] 1.02 mg/dL 5:11 PM CDT LABORATORY GFR, Estimated >60 >60 06/28/2021 [facility] mL/min/1.7 5:11 PM CDT LABORATORY 3m2 Specimen Anatomical Collection Method / Collection Time Recei giselle Time (Source) Location / Volume Laterality Blood Venipuncture / 06/28/2021 2:27 06/28/2021 2:28 Unknown PM CDT PM CDT Lorenza Q Black DO LAB_1 Performing Organization Address City/State/ZIP Code Phon e Number [facility] [address] [place] [address] documented in this encounter Visit Diagnoses Diagnosis 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
--- OUTSIDE RECORDS SUMMARY | 2022-07-29 14:27 | XMS_ITS | Clinical Summary ---
:1945 Author Organization [employer] Address [address] [place] [address] Care Team Providers Name Role Phone Flo [...] for each transition of care or referral. [employer] Medications Medication Sig Dispensed Refills Start Date [...] tablet needed pseudoephedrine Daily 0 Acti ve ([id number]) 120 MG 12 hour release tablet calcium [...] Addre ss Type Group [employer] [id number] 2019-Present [phone] [address] Medicare MEDICARE 2 [place], [place] [phone] Pedrito, Personal/Family Self 1945 [address] [facility] [place] [address] Care Teams Water And Sewer Systems Supervisor Relationship Specialty Start Date End Date Flo Mckeon MD PCP - General 06/21/211999 [place] [address]
--- OUTSIDE RECORDS SUMMARY | 2022-07-29 14:27 | XMS_ITS | Encounter Summary ---
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
--- OUTSIDE RECORDS SUMMARY | 2022-07-29 14:27 | XMS_ITS | Encounter Summary ---
:1945 Author Organization [employer] Address [address], [place] [address] Care Team Providers Name Role Phone Flo Mckeon MD Primary Care Provider Reason for Visit Reason Comments Refill Encounter Details Date Type Department Care Team Description 12/12/2021 Refill [facility] [address] Lorenza Black, DO Refill Rheumatology [address] [place] [address] [place] [address] [place] [address] [phone] Social History Tobacco Use Types Packs/Day Years Used Date Smoking Tobacco: Never Assessed Sex Assigned at Date Recorded Not on file documented as of this encounter Nursing Notes Akiko Vega LPN - 12/12/2021 12:22 PM CST Left message informing patient. CH ADJUSTER Mercy Roman PA-C - 12/12/2021 12:18 PM [...] with Dr. Black as soon as possible. CH ADJUSTER documented in this encounter Plan of Treatment Not on filedocumented as of this encounter Visit Diagnoses Not on filedocumented in this encounter Care Teams Mixer And Scaler Relationship Specialty Start Date End Date Flo Mckeon MD PCP - General 06/21/211999 [place], [place] [address] documented as of this encounter
--- OUTSIDE RECORDS SUMMARY | 2022-07-29 14:27 | XMS_ITS | Encounter Summary ---
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) Lorenza Black DO Procedures XR Shoulder Rt 2+ Views [address] [place], [place] [address] Referral ID Status Reason Start Date Expiration Date Visits V isits Requested Authorized [id number] Incomplete 06/28/2021 09/27/2022 1 1 Procedure/Equipment (Routine) - Incomplete Specialty Diagnoses / Procedures Referred By Contact Refer red To Contact Diagnoses 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) Lorenza Black DO Procedures XR Hands 1 View Bilat Arthritis [address] [place], [place] [address] Referral ID Status Reason Start Date Expiration Date Visits V isits Requested Authorized [id number] Incomplete 06/28/2021 09/27/2022 1 1 Reason for Visit Reason Comments CONSULT Encounter Details Date Type Department Care Team Description 06/28/2021 Office Visit [place] Lorenza Black DO 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 She has been on prednisone 5 mg and then recently 10 mg [id number] Today the patient states that her hands [...] to 6/10. She laments the inability to pickle cutter her grandchildren. She has tried anti-inflammatories and [...] smoked. 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 Exam Gen: NAD, [...] 65 minutes including, but not limited to, kdx-empq-ih-face time spent reviewing records, counseling, and coordination [...] the ra diocarpal and multiple intercarpal joints. [facility] DO RAD GD XR Shoulder Rt [...] degenerative arthrosis of the AC joint. Lorenza [employer] [facility] DO RAD GD Rheumatoid Factor, Quant (06/28/2021 2:27 PM CDT) Analysis Performed At Patho logist Time Signature Rheumatoid <15 <=30 IU/mL 06/28/2021 [facility] Factor, 7:52 PM CDT LABORATORY Quantitative Specimen Anatomical Collection Method / Collection Time Recei giselle Time (Source) Location / Volume Laterality Blood Venipuncture / 06/28/2021 2:27 06/28/2021 2:28 Unknown PM CDT PM CDT [facility] [employer] [facility] DO LAB_1 Performing Organization Address City/State/ZIP Code Phon e Number [facility] [address] [place] [address] Anti-CCP Antibody (06/28/2021 2:27 PM CDT) [facility] Method Time Signature Anti-CCP Antibody 1 <7 U/mL 06/29/2021 [facility] 1[facility]16 PM CDT C[facility]AL LAB Anti-CCP Antibody Negative Negative 06/29/2021 [facility] Interpretation 1:16 PM CDT CENTRAL LAB Specimen Anatomical Collection Method / Collection Time Recei giselle Time (Source) Location / Volume Laterality Blood Venipuncture / 06/28/2021 2:27 06/28/2021 2:28 Unknown PM CDT PM CDT [employer] DO LAB_1 Performing Organization Address City/[facility]/ZIP Code Phon e Number [facility] C[facility]AL LAB [address] [address] Hepatitis B Surface Antigen (06/28/2021 2:27 PM CDT) [facility] Method Time Signature Hepatitis B Negative Negative 06/28/2021 [facility] Surface (Non (Non 8:12 PM CDT LABORATORY Antigen Reactive) Reactive) Specimen Anatomical Collection Method / Collection Time Recei giselle Time (Source) Location / Volume Laterality Blood Venipuncture / 06/28/2021 2:27 06/28/2021 2:28 Unknown PM CDT PM CDT [facility] LAB_1 Performing Organization Address [facility] Phon e Number [facility] [address] [place] [address] HIV 1/2 Ag/Ab 4th Generation (06/28/2021 2:27 PM CDT) [facility] Method [place] Signature HIV 1/2 Negative Negative 06/28/2021 [facility] Antigen/Antib (Non (Non 7:52 PM CDT LABORATORY zachary (4th Reactive) Reactive) generation) Comment: HIV-1 p24 Antigen and HIV-1/HIV -2 Antibody not detected Specimen Anatomical Collection Method / Collection Time Recei giselle Time (Source) Location / Volume Laterality Blood Venipuncture / 06/28/2021 2:27 06/28/2021 2:28 Unknown PM CDT PM CDT [employer] DO LAB_1 Performing Organization Address City/[facility]/ZIP Code Phon e Number [facility] [address] [place] [address] Hepatitis C Antibody, with Reflex (06/28/2021 2:27 PM CDT) [facility] Method Time Signature Hepatitis C Negative Negative 06/28/2021 [facility] Antibody (Non (Non 7:52 PM CDT LABORATORY [...] City/[facility] Phon e Number [facility] [address] [place] [address] Liver Panel(Hepatic Function Panel) (06/28/2021 2:27 PM CDT) athologist Signature Alkaline 70 40 - 150 06/28/2021 [facility] Phosphatase U/L 5:11 PM CDT LABORATORY Bilirubin, Total 0.5 0.2 - 1.2 06/28/2021 [facility] mg/dL 5:11 PM CDT LABORATORY Bilirubin, 0.2 0.0 - 0.5 06/28/2021 [facility] Direct mg/dL 5:11 PM CDT LABORATORY AST (SGOT) 18 10 - 40 06/28/2021 [facility] U/L 5:11 PM CDT LABORATORY ALT (SGPT) 21 0 - 55 U/L 06/28/2021 [facility] 5:11 PM CDT LABORATORY Protein, Total 6.5 6.4 - 8.3 06/28/2021 [place] g/dL 5:11 PM CDT LABORATORY Albumin 3.9 3.5 - 5.0 06/28/2021 [facility] g/dL 5:11 PM CDT LABORATORY Specimen Anatomical Collection Method / Collection Time Recei giselle Time (Source) Location / Volume Laterality Blood Venipuncture / 06/28/2021 2:27 06/28/2021 2:28 Unknown PM CDT PM CDT [facility] Q Black DO LAB_1 Performing Organization Address City/State/[facility] Phon e Number [facility] [address] [place] [address] (ABNORMAL) Creatinine / GFR (06/28/2021 2:27 PM CDT) [facility] gist Method Time Signature Creatinine 0.40 (L) 0.55 - 06/28/2021 [facility] 1.02 mg/dL 5:11 PM CDT LABORATORY GFR, Estimated >60 >60 06/28/2021 [facility] mL/min/1.7 5:11 PM CDT LABORATORY 3m2 Specimen Anatomical Collection Method / Collection Time Recei giselle Time (Source) Location / Volume Laterality Blood Venipuncture / 06/28/2021 2:27 06/28/2021 2:28 Unknown PM CDT PM CDT Lorenza Q Black DO LAB_1 Performing Organization Address City/State/ZIP Code Phon e Number [facility] [address] [place] [address] documented in this encounter Visit Diagnoses Diagnosis 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
--- OUTSIDE RECORDS SUMMARY | 2022-07-29 14:27 | XMS_ITS | Clinical Summary ---
:1945 Author Organization [employer] [place] [address] Care Team Providers Name Role Phone Kallie Tamayo METAL PATTERN MAKER Unavailable [facility] Unavailable Flo Mckeon MD Primary Care Provider [...] 01/18/2014 A-fib 01/18/2014 Constipation 01/18/2014 Scoliosis 01/18/2014 Social History Tobacco Use Types Packs/Day Years [...] PCV) 12/31/2011 Influenza for age 65+ 06/13/2022 Results Not on filefrom Last 3 Months Insurance Payer Benefit Plan / Subscriber ID Effective Dates Phone Addre ss Type Group MEDICARE PPS MEDICARE [id number] 2011-Presen [address] [place] [address] [employer] [id number] 2019-Presen [address] [place] [address] Josh Major Personal/Famil Self 1945 [address] [facility] vance J y (Home) [place], [place] [phone] (Work) Care Teams Library Circulation Assistant Relationship Specialty Start Date End Date Flo Mckeon MD PCP - General Family Practice 10/04/211999 [place] [address] Kallie Tamayo, FROILAN Family Practice 01/17/[address] [id number] [facility] 01/29/14
--- OUTSIDE RECORDS SUMMARY | 2022-07-29 14:27 | XMS_ITS | Encounter Summary ---
:1945 Author Organization [facility] Address [address], [place] [address] Care Team Providers Name Role Phone Flo Mckeon MD Primary Care Provider Reason for Visit Reason Comments Refill Encounter Details Date Type Department Care Team Description 06/13/2022 Refill [facility] [address] BlackLorenza, DO Refill Rheumatology [address] [place] [address] [place] [address] [place] [address] [phone] Social History Tobacco Use Types Packs/Day Years [...] medications documented in this encounter Care Teams Framing Mechanic Relationship Specialty Start Date End Date Flo Mckeon MD PCP - General 06/21/211999 [place] [address] documented as of this encounter
--- OUTSIDE RECORDS SUMMARY | 2022-07-29 14:27 | XMS_ITS | Encounter Summary ---
:1945 Author Organization [facility] Address [address], [place] [address] Care Team Providers Name Role Phone Flo Mckeon MD Primary Care Provider Reason for Visit Reason Comments Phone Visit Follow-up Encounter Details Date Type Department Care Team Description 09/13/2021 Phone Visit [place] Lorenza Black DO Rheumatoid arthritis, Rheumatology [address] [facility] involving unspecified [address] [facility] site, unspecified [place], [place] [id number] [place] [address] whether rheumatoid [phone] factor present (HRC) [phone] (Wo rk) (Primary Dx) Social History Tobacco Use Types Packs/Day Years Used Date Smoking Tobacco: Never Assessed Sex Assigned at Date Recorded Not on file documented as of this encounter Progress Notes Lorenza Black DO - 09/13/2021 2:45 PM CST Error TO LOADER documented in this encounter Plan of Treatment Not on filedocumented as of this encounter Visit Diagnoses Diagnosis Rheumatoid arthritis, involving unspecif ied site, unspecified whether rheumatoid factor present (HRC) - Primary documented in this encounter Care Teams Turning Lathe Tender Relationship Specialty Start Date End Date Flo Mckeon MD PCP - General 06/21/211999 [place] [address] documented as of this encounter
--- OUTSIDE RECORDS SUMMARY | 2022-07-29 14:27 | XMS_ITS | Encounter Summary ---
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) Black Lorenza Q, DO Procedures XR Hands 1 View Bilat Arthritis [address] [place], [place] [address] Referral ID Status Reason Start Date Expiration Date Visits V isits Requested Authorized [id number] Incomplete 06/28/2021 09/27/2022 1 1 Encounter Details Date Type Department Care Team Description 06/28/2021 Ancillary [place] Black, Lorenza Q, DO Rheumatoid arthritis Procedure Radiology [address] involving multiple [address] [facility] sites with positive Drive [place], [place] [address] (HRC) [id number] Social History Tobacco Use Types Packs/Day Years [...] (HRC) documented in this encounter Care Teams Flight Crew Ordnanceman Relationship Specialty Start Date End Date Flo Mckeon MD PCP - General 06/21/211999 [place] [id number] documented as of this encounter
--- OUTSIDE RECORDS SUMMARY | 2022-07-29 14:27 | XMS_ITS | Encounter Summary ---
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 sites with positive Drive [place], [place] [address] (HRC) [phone] Social History Tobacco Use Types Packs/Day Years [...] of the AC joint. Procedure Note Santy Albrihgt MD - 06/28/2021Formatti ng of this note [...] (HRC) documented in this encounter Care Teams Assistant Paralegal Relationship Specialty Start Date End Date Flo Mckeon MD PCP - General 06/21/211999 [place] [address] documented as of this encounter
--- OUTSIDE RECORDS SUMMARY | 2022-07-29 14:27 | XMS_ITS | Encounter Summary ---
:1945 Author Organization [employer] Address [address] [place] [address] Care Team Providers Name Role Phone Flo Mckeon MD Primary Care Provider Reason for Visit Reason Comments Phone Visit Follow-up Encounter Details Date Type Department Care Team Description 07/31/2021 Phone Visit [place] Lorenza Black DO Rheumatoid arthritis with negative rheum atoid factor, involving unspecified site (HRC) (Primary Dx); Rheumatology [address] [place] [address] Encounter for long-term (cur rent) use of medications [address] [place] [address] [place], [place] [phone] (Wo rk) Social History Tobacco Use Types [...] The patient is located at Home in [facility]. The consulting provider is located in [place], [place]. documented in this encounter Plan of Treatment Not on filedocumented as of this encounter Visit Diagnoses Diagnosis Rheumatoid arthritis with negative rheum atoid factor, involving unspecified site (HRC) - Primary Encounter for long-term (current) use of medications Encounter for long-term (current) use of other medications documented in this encounter Care Teams Junior Java Developer Relationship Specialty Start Date End Date Flo Mckeon MD PCP - General 06/21/211999 [place] [address] documented as of this encounter
== END 2022-07-29 14:26 | disposition home or self-care (01) ==
LOC: WOUND 14:25
PROVIDERS: PCP Family Medicine; Visit Provider Nurse Practitioner Family
DX: L89.314 Pressure ulcer of right buttock, stage 4 (principal)
CPT/HCPCS: 11042; 97605

== ENCOUNTER 2022-08-05 15:07 | Outpatient (CLI) | payer OTHER, SELFPAY ==
--- OUTSIDE RECORDS SUMMARY | 2022-08-05 15:27 | XMS_ITS | Clinical Summary ---
:1945 Author Organization [employer] Address [address] [place] [address] Care Team Providers Name Role Phone Flo [...] for each transition of care or referral. [employer] [facility] Medications Medication Sig Dispensed Refills Start Date [...] tablet needed pseudoephedrine Daily 0 Acti ve ([id number]) 120 MG 12 hour release tablet calcium [...] Addre ss Type Group [employer]ET[employer] [place] [id number] 2019-Present [phone] [address] Medicare MEDICARE 2 [place], [place] ADVANTAGE [phone] Pedrito, Personal/Family Self 1945 [address] [facility] [place] [address] Care Teams Cloth Bleaching Supervisor Relationship Specialty Start Date End Date Flo Mckeon MD PCP - General 06/21/211999 [place] [address]
--- OUTSIDE RECORDS SUMMARY | 2022-08-05 15:27 | XMS_ITS | Encounter Summary ---
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) Black Lorenza Q, DO Procedures XR Hands 1 View Bilat Arthritis [address] [place], [place] [address] Referral ID Status Reason Start Date Expiration Date Visits V isits Requested Authorized [id number] Incomplete 06/28/2021 09/27/2022 1 1 Encounter Details Date Type Department Care Team Description 06/28/2021 Ancillary [place] Black, Lorenza Q, DO Rheumatoid arthritis Procedure Radiology [address] [place] involving multiple [address] [facility] sites with positive Drive [place], [place] [address] (HRC) [phone] Social History Tobacco Use Types Packs/Day Years [...] (HRC) documented in this encounter Care Teams Milk Pickup Truck Driver Relationship Specialty Start Date End Date Flo Mckeon MD PCP - General 06/21/211999 [place] [id number] documented as of this encounter
--- OUTSIDE RECORDS SUMMARY | 2022-08-05 15:27 | XMS_ITS | Encounter Summary ---
:1945 Author Organization [facility] Address [address], [place] [address] Care Team Providers Name Role Phone Flo Mckeon MD Primary Care Provider Encounter Details Date Type Department Care Team Description 06/28/2021 Lab Visit [facility] Rheumatoid arthritis [address] [place] [address] with positive rheumatoid [phone] factor (HRC) Social History Tobacco Use Types [...] CDT) athologist Signature MITOGEN >10.000 IU/mL 07/02/2021 [facility] 8:53 AM CDT LABORATORY Specimen Anatomical Collection Method / Collection Time Recei giselle Time (Source) Location / Volume Laterality Blood Venipuncture / 06/28/2021 2:28 06/28/2021 2:28 Unknown PM CDT PM CDT Lorenza [facility] LAB_1 Performing Organization Address [facility] Phon e Number [facility] [address] [place] [address] TB QuantiFERON Gold Plus TB2 (06/28/2021 2:28 PM CDT) P athologist Signature TB2 0.081 IU/mL 07/02/2021 [facility] 8:53 AM CDT LABORATORY Specimen Anatomical Collection Method / Collection Time Recei giselle Time (Source) Location / Volume Laterality Blood Venipuncture / 06/28/2021 2:28 06/28/2021 2:28 Unknown PM CDT PM CDT [facility] LAB_1 Performing Organization Address [facility] Phon e Number [facility] [address] [place] [address] TB QuantiFERON Gold Plus TB1 (06/28/2021 2:28 PM CDT) P athologist Signature TB1 0.094 IU/mL 07/02/2021 [facility] 8:54 AM CDT LABORATORY Specimen Anatomical Collection Method / Collection Time Recei giselle Time (Source) Location / Volume Laterality Blood Venipuncture / 06/28/2021 2:28 06/28/2021 2:28 Unknown PM CDT PM CDT [facility] LAB_1 Performing Organization Address [facility] Phon e Number [facility] [address] [place] [address] TB QuantiFERON Gold Plus NIL (06/28/2021 2:28 PM CDT) [facility] gist Method Time Signature 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 NIL 0.024 IU/mL 07/02/2021 [facility] 8:54 AM LABORATORY CDT TB1-NIL 0.07 IU/mL 07/02/2021 [facility] 8:54 AM LABORATORY CDT TB2-NIL 0.06 IU/mL 07/02/2021 [facility] 8:54 AM LABORATORY CDT Mitogen-NIL 9.98 IU/mL 07/02/2021 [facility] 8:54 AM LABORATORY CDT Specimen Anatomical Collection Method / Collection Time Recei giselle Time (Source) Location / Volume Laterality Blood Venipuncture / 06/28/2021 2:28 06/28/2021 2:28 Unknown PM CDT PM CDT Narrative [facility] - 07/02/2021 8:54 A M CDT [...] Organization Address City/State/ZIP Code Phon e Number [facility] [address] [place] [address] (ABNORMAL) Complete Blood Count-W/Diff (06/28/2021 2:28 PM CDT) [facility] Method Time Signature WBC 12.1 (H) 3.5 - 10.5 06/28/2021 [place] x10(9)/L 2:44 PM CDT LABORATORY RBC 5.26 (H) 3.90 - 06/28/2021 [place] 5.03 2:44 PM CDT LABORATORY x10(12)/L Hemoglobin 15.2 12.0 - 06/28/2021 [place] 15.5 g/dL 2:44 PM CDT LABORATORY HCT 48.5 (H) 34.9 - 06/28/2021 [place] 44.5 % 2:44 PM CDT LABORATORY MCV 92.2 80.0 - 06/28/2021 [place] 100.0 fL 2:44 PM CDT LABORATORY MCH 28.9 27.6 - 06/28/2021 [place] 33.3 pg 2:44 PM CDT LABORATORY MCHC 31.3 (L) 31.5 - 06/28/2021 [place] 35.2 g/dL 2:44 PM CDT LABORATORY RDW 13.8 11.9 - 06/28/2021 [place] 15.5 % 2:44 PM CDT LABORATORY Platelets 307 150 - 450 06/28/2021 [place] x10(9)/L 2:44 PM CDT LABORATORY Automated NRBC 0 <=0 /100 06/28/2021 [place] WBC 2:44 PM CDT LABORATORY Neutrophil 10.8 (H) 1.7 - 7.0 06/28/2021 [place] Absolute 10(9)/L 2:44 PM CDT LABORATORY Lymphocyte 0.9 (L) 1.0 - 4.8 06/28/2021 [place] Absolute 10(9)/L 2:44 PM CDT LABORATORY Monocytes 0.3 0.2 - 0.9 06/28/2021 [place] Absolute 10(9)/L 2:44 PM CDT LABORATORY Eosinophil 0.0 0.0 - 0.5 06/28/2021 [place] Absolute 10(9)/L 2:44 PM CDT LABORATORY Basophil 0.0 0.0 - 0.3 06/28/2021 [place] Absolute 10(9)/L 2:44 PM CDT LABORATORY Immature Gran % 0.7 (H) 0.0 - 0.5 06/28/2021 [place] % 2:44 PM CDT LABORATORY Specimen Anatomical Collection Method / Collection Time Recei giselle Time (Source) Location / Volume Laterality Blood Venipuncture / 06/28/2021 2:28 06/28/2021 2:28 Unknown PM CDT PM CDT [employer] DO LAB_1 Performing Organization Address City/State/ZIP Code Phon e Number [place] [facility] [address] [place] [address] Rheumatoid Factor, Quant (06/28/2021 2:27 PM CDT) Analysis Performed At Path logist Time Signature Rheumatoid <15 <=30 IU/mL 06/28/2021 [facility] Factor, 7:52 PM CDT LABORATORY Quantitative Specimen Anatomical Collection Method / Collection Time Recei giselle Time (Source) Location / Volume Laterality Blood Venipuncture / 06/28/2021 2:27 06/28/2021 2:28 Unknown PM CDT PM CDT [employer] DO LAB_1 Performing Organization Address City/State/ZIP Code Phon e Number [facility] [address] [place] [address] Anti-CCP Antibody (06/28/2021 2:27 PM CDT) [facility] Method Time Signature Anti-CCP Antibody 1 <7 U/mL 06/29/2021 [facility] 1:16 PM CDT CENTRAL LAB Anti-CCP Antibody Negative Negative 06/29/2021 [facility] Interpretation 1:16 PM CDT CENTRAL LAB Specimen Anatomical Collection Method / Collection Time Recei giselle Time (Source) Location / Volume Laterality Blood Venipuncture / 06/28/2021 2:27 06/28/2021 2:28 Unknown PM CDT PM CDT Lorenza [place] [employer] DO LAB_1 Performing Organization Address City/[facility]/ZIP Code Phon e Number [facility] CENTRAL LAB [address] [address] Hepatitis B Surface Antigen (06/28/2021 2:27 PM CDT) [facility] Method Time Signature Hepatitis B Negative Negative 06/28/2021 [facility] Surface (Non (Non 8:12 PM CDT LABORATORY Antigen Reactive) Reactive) Specimen Anatomical Collection Method / Collection Time Recei giselle Time (Source) Location / Volume Laterality Blood Venipuncture / 06/28/2021 2:27 06/28/2021 2:28 Unknown PM CDT PM CDT Lorenza [employer] DO LAB_1 Performing Organization Address City/[facility] Code Phon e Number [facility] [address] [place] [address] HIV 1/2 Ag/Ab 4th Generation (06/28/2021 2:27 PM CDT) [facility] Method Time Signature HIV 1/2 Negative Negative 06/28/2021 [facility] Antigen/Antib (Non (Non 7:52 PM CDT LABORATORY zachary (4th Reactive) Reactive) generation) Comment: HIV-1 p24 Antigen and HIV-1/HIV -2 Antibody not detected Specimen Anatomical Collection Method / Collection Time Recei giselle Time (Source) Location / Volume Laterality Blood Venipuncture / 06/28/2021 2:27 06/28/2021 2:28 Unknown PM CDT PM CDT Lorenza [employer] DO LAB_1 Performing Organization Address [facility]/ZIP Code Phon e Number [facility] [address] [place] [address] Hepatitis C Antibody, with Reflex (06/28/2021 2:27 PM CDT) Patholo gist Method Time Signature Hepatitis C Negative Negative 06/28/2021 [facility] Antibody (Non (Non 7:52 PM CDT LABORATORY Reactive) Reactive) Comment: Antibodies to HCV not detected. Does not exclude the possiblity of exposure to HCV. Specimen Anatomical Collection Method / Collection Time Recei giselle Time (Source) Location / Volume Laterality Blood Venipuncture / 06/28/2021 2:27 06/28/2021 2:28 Unknown PM CDT PM CDT Lorenza Q Black DO LAB_1 Performing Organization Address City/[facility] Code Phon e Number [facility] [address] [place] [address] Liver Panel(Hepatic Function Panel) (06/28/2021 2:27 PM CDT) athologist [facility] Alkaline 70 40 - 150 06/28/2021 [place] Phosphatase U/L 5:11 PM CDT LABORATORY Bilirubin, Total 0.5 0.2 - 1.2 06/28/2021 [place] mg/dL 5:11 PM CDT LABORATORY Bilirubin, 0.2 0.0 - 0.5 06/28/2021 [place] Direct mg/dL 5:11 PM CDT LABORATORY AST (SGOT) 18 10 - 40 06/28/2021 [place] U/L 5:11 PM CDT LABORATORY ALT (SGPT) 21 0 - 55 U/L 06/28/2021 [place] 5:11 PM CDT LABORATORY Protein, Total 6.5 6.4 - 8.3 06/28/2021 [place] g/dL 5:11 PM CDT LABORATORY Albumin 3.9 3.5 - 5.0 06/28/2021 [place] g/dL 5:11 PM CDT LABORATORY Specimen Anatomical Collection Method / Collection Time Recei giselle Time (Source) Location / Volume Laterality Blood Venipuncture / 06/28/2021 2:27 06/28/2021 2:28 Unknown PM CDT PM CDT Lorenza Q Black DO LAB_1 Performing Organization Address City/[facility]/ZIP [facility] Phon e Number [place] [facility] [address] [place] [address] (ABNORMAL) Creatinine / GFR (06/28/2021 2:27 PM CDT) [facility] gist Method Time Signature Creatinine 0.40 (L) 0.55 - 06/28/2021 [place] 1.02 mg/dL 5:11 PM CDT LABORATORY GFR, Estimated >60 >60 06/28/2021 [place] mL/min/1.7 5:11 PM CDT LABORATORY 3m2 Specimen Anatomical Collection Method / Collection Time Recei giselle Time (Source) Location / Volume Laterality Blood Venipuncture / 06/28/2021 2:27 06/28/2021 2:28 Unknown PM CDT PM CDT Lorenza Q Black DO LAB_1 Performing Organization Address City/State/ZIP Code Phon e Number [place] [facility] [address] [place] [address] documented in this encounter Visit Diagnoses Diagnosis 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) documented in this encounter Care Teams Chemistry Lecturer Relationship Specialty Start Date End Date Fol Mckeon MD PCP - General 06/21/211999 [place] [address] documented as of this encounter
--- OUTSIDE RECORDS SUMMARY | 2022-08-05 15:27 | XMS_ITS | Encounter Summary ---
:1945 Author Organization [email or web address] Address [address], [place] [address] Care Team Providers Name Role Phone Flo Mckeon MD Primary Care Provider Reason for Visit Reason Comments Refill Encounter Details Date Type Department Care Team Description 06/13/2022 Refill [facility] [address] BlackLorenza, DO Refill Rheumatology [address] [place] Jeramie Barajas [address] [place] [address] [place] [address] [phone] Social History Tobacco Use Types Packs/Day Years [...] medications documented in this encounter Care Teams Acting Instructor Relationship Specialty Start Date End Date Flo Mckeon MD PCP - General 06/21/211999 [place] [address] documented as of this encounter
--- OUTSIDE RECORDS SUMMARY | 2022-08-05 15:27 | XMS_ITS | Encounter Summary ---
:1945 Author Organization [employer] Address [address], [place] [address] Care Team Providers Name Role Phone Flo Mckeon MD Primary Care Provider Reason for Visit Reason Comments LAB RESULTS Encounter Details Date Type Department Care Team Description 07/02/2021 Telephone [facility] [address] Lorenza Black DO LAB RESULTS Rheumatology [address] [place] [address] [place], [place] [address] [phone] Social History Tobacco Use Types Packs/Day Years [...] medications documented in this encounter Care Teams Side Gluer Relationship Specialty Start Date End Date Flo Mckeon MD PCP - General 06/21/211999 [place] [address] documented as of this encounter
--- OUTSIDE RECORDS SUMMARY | 2022-08-05 15:27 | XMS_ITS | Encounter Summary ---
:1945 Author Organization [facility] Address [address] [address] Care Team Providers Name Role Phone Flo Mckeon MD Primary Care Provider Reason for Visit Reason Comments Phone Visit Follow-up Encounter Details Date Type Department Care Team Description 09/13/2021 Phone Visit [place] Lorenza Black DO Rheumatoid arthritis, Rheumatology [address] [facility] involving unspecified [address] [facility] site, unspecified [place], [place] [address] [place] [address] whether rheumatoid [phone] factor present (HRC) [phone] (Wo rk) (Primary Dx) Social History Tobacco Use Types Packs/Day Years Used Date Smoking Tobacco: Never Assessed Sex Assigned at Date Recorded Not on file documented as of this encounter Progress Notes Lorenza Black DO - 09/13/2021 2:45 PM CST Error WRAPPER documented in this encounter Plan of Treatment Not on filedocumented as of this encounter Visit Diagnoses Diagnosis Rheumatoid arthritis, involving unspecif ied site, unspecified whether rheumatoid factor present (HRC) - Primary documented in this encounter Care Teams Dinkey Engine Firer Relationship Specialty Start Date End Date Flo Mckeon MD PCP - General 06/21/211999 [place] [address] documented as of this encounter
--- OUTSIDE RECORDS SUMMARY | 2022-08-05 15:27 | XMS_ITS | Encounter Summary ---
:1945 Author Organization [facility] Address [address] [address] Care Team Providers Name Role Phone Flo Mckeon MD Primary Care Provider Reason for Visit Procedure/Equipment (Routine) - Incomplete Specialty Diagnoses / Procedures Referred By Contact Refer red To Contact Diagnoses 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) Lorenza Black, DO Procedures XR Shoulder Rt 2+ Views [address] [place], [place] [address] Referral ID Status Reason Start Date Expiration Date Visits V isits Requested Authorized [id number] Incomplete 06/28/2021 09/27/2022 1 1 Encounter Details Date Type Department Care Team Description 06/28/2021 Ancillary [place] Lorenza Black, DO Rheumatoid arthritis Procedure Radiology [address] [place] involving multiple [address] [facility] sites with positive Drive [place], [place] [address] (HRC) [id number] Social History Tobacco Use Types Packs/Day Years [...] (HRC) documented in this encounter Care Teams Braille Translator Relationship Specialty Start Date End Date Flo Mckeon MD PCP - General 06/21/211999 [place] [address] documented as of this encounter
--- OUTSIDE RECORDS SUMMARY | 2022-08-05 15:27 | XMS_ITS | Encounter Summary ---
:1945 Author Organization [employer] Address [address] [address] Care Team Providers Name Role Phone Flo Mckeon MD Primary Care Provider Reason for Visit Reason Comments Refill Encounter Details Date Type Department Care Team Description 12/12/2021 Refill [facility] [address] Lorenza Black, DO Refill Rheumatology [address] [place] [address] [place] [address] [place] [address] [phone] Social History Tobacco Use Types Packs/Day Years Used Date Smoking Tobacco: Never Assessed Sex Assigned at Date Recorded Not on file documented as of this encounter Nursing Notes Akiko Vega LPN - 12/12/2021 12:22 PM CST Left message informing patient. CLEANER Mercy Roman PA-C - 12/12/2021 12:18 PM [...] with Dr. Black as soon as possible. CLEANER documented in this encounter Plan of Treatment Not on filedocumented as of this encounter Visit Diagnoses Not on filedocumented in this encounter Care Teams Ruling Technician Relationship Specialty Start Date End Date Flo Mckeon MD PCP - General 06/21/211999 [place], [place] 2[address] documented as of this encounter
--- OUTSIDE RECORDS SUMMARY | 2022-08-05 15:27 | XMS_ITS | Clinical Summary ---
:1945 Author Organization [employer] [place] [address] Care Team Providers Name Role Phone Kallie Tamayo GENERAL LEDGER BOOKKEEPER Unavailable [facility], [facility] Unavailable Flo Mckeon MD Primary Care [...] Addre ss Type Group MEDICARE PPS MEDICARE [id number] 2011-Presen [address] [place] [address] [facility] [id number] 2019-Presen [id number] [place] [address] Josh Major Personal/Famil Self 1945 [address] [facility] vance J y (Home) [place], [place] [phone] (Work) Care Teams Coil Shaper Relationship Specialty Start Date End Date Flo Mckeon MD PCP - General Family Practice 10/04/211999 [place] [address] Kallie Tamayo, FRO[facility]AN [facility] 01/17/[address] [id number] [facility], [facility] 01/29/14
--- OUTSIDE RECORDS SUMMARY | 2022-08-05 15:27 | XMS_ITS | Encounter Summary ---
:1945 Author Organization [employer] Address [address] [place] [address] Care Team Providers Name Role Phone Flo Mckeon MD Primary Care Provider Reason for Visit Reason Comments Phone Visit Follow-up Encounter Details Date Type Department Care Team Description 07/31/2021 Phone Visit [place] Lorenza Black DO Rheumatoid arthritis with negative rheum atoid factor, involving unspecified site (HRC) (Primary Dx); Rheumatology [address] [place] [address] Encounter for long-term (cur rent) use of medications [address] [place] [address] [place], [place] [phone] (Wo rk) Social History Tobacco Use Types [...] The patient is located at Home in [facility]. The consulting provider is located in [place], [place]. documented in this encounter Plan of Treatment Not on filedocumented as of this encounter Visit Diagnoses Diagnosis Rheumatoid arthritis with negative rheum atoid factor, involving unspecified site (HRC) - Primary Encounter for long-term (current) use of medications Encounter for long-term (current) use of other medications documented in this encounter Care Teams Shop Fitter Relationship Specialty Start Date End Date Flo Mckeon MD PCP - General 06/21/211999 [place] [address] documented as of this encounter
--- OUTSIDE RECORDS SUMMARY | 2022-08-05 15:28 | XMS_ITS | Encounter Summary ---
:1945 [facility] Address [address], [place] [address] Care Team Providers Name Role Phone Unassigned, Provider Primary Care Provider Unavailable Encounter Details Date Type Department Care Team Description 10/13/1989 PN Conversion Only INTELLECTUAL PROPERTY LAWYER [address] [place] [address] Social History Tobacco Use Types Packs/Day Years Used Date Smoking Tobacco: Never Assessed Sex Assigned at Date Recorded Not on file documented as of this encounter Plan of Treatment Not on filedocumented as of this encounter Visit Diagnoses Not on filedocumented in this encounter Care Teams Gas Jockey Relationship Specialty Start Date End Date Unassigned, Provider PCP - General 07/16/00 06/20/21 [address] [place] [address] documented as of this encounter
--- OUTSIDE RECORDS SUMMARY | 2022-08-05 15:28 | XMS_ITS | Encounter Summary ---
:1945 Author Organization [email or web address] Address [address], [place] [address] Care Team Providers Name Role Phone Flo Mckeon MD Primary Care Provider Reason for Referral Procedure/Equipment (Routine) - Incomplete Specialty Diagnoses / Procedures Referred By Contact Refer red To Contact Diagnoses 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) Lorenza Black DO Procedures XR Shoulder Rt 2+ Views [address] [place], [place] [address] Referral ID Status Reason Start Date Expiration Date Visits V isits Requested Authorized [id number] Incomplete 06/28/2021 09/27/2022 1 1 Procedure/Equipment (Routine) - Incomplete Specialty Diagnoses / Procedures Referred By Contact Refer red To Contact Diagnoses 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) Lorenza Black DO Procedures XR Hands 1 View Bilat Arthritis [address] [place], [place] [address] Referral ID Status Reason Start Date Expiration Date Visits V isits Requested Authorized [id number] Incomplete 06/28/2021 09/27/2022 1 1 Reason for Visit Reason Comments CONSULT Encounter Details Date Type Department Care Team Description 06/28/2021 Office Visit [place] Lorenza Black DO 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 She has been on prednisone 5 mg and then recently 10 mg [id number] Today the patient states that her hands [...] to 6/10. She laments the inability to fish bait picker her grandchildren. She has tried anti-inflammatories [...] smoked. 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 Exam Gen: NAD, [...] 65 minutes including, but not limited to, yzt-goev-lc-face time spent reviewing records, counseling, and coordination [...] the ra diocarpal and multiple intercarpal joints. [facility] DO RAD GD XR Shoulder Rt [...] degenerative arthrosis of the AC joint. Lorenza Evogen [facility] DO RAD GD Rheumatoid Factor, Quant (06/28/2021 2:27 PM CDT) Analysis Performed At Patho logist Time Signature Rheumatoid <15 <=30 IU/mL 06/28/2021 [facility] Factor, 7:52 PM CDT LABORATORY Quantitative Specimen Anatomical Collection Method / Collection Time Recei giselle Time (Source) Location / Volume Laterality Blood Venipuncture / 06/28/2021 2:27 06/28/2021 2:28 Unknown PM CDT PM CDT [facility] Evogen [facility] DO LAB_1 Performing Organization Address City/State/ZIP Code Phon e Number [facility] [address] [place] [address] Anti-CCP Antibody (06/28/2021 2:27 PM CDT) [facility] Method Time Signature Anti-CCP Antibody 1 <7 U/mL 06/29/2021 [facility] 1:16 PM CDT CENTRAL LAB Anti-CCP Antibody Negative Negative 06/29/2021 [facility] E[facility] Interpretation 1:16 PM CDT CENTRAL LAB Specimen Anatomical Collection Method / Collection Time Recei giselle Time (Source) Location / Volume Laterality Blood Venipuncture / 06/28/2021 2:27 06/28/2021 2:28 Unknown PM CDT PM CDT LorenzaCmed DO LAB_1 Performing Organization Address City/[facility]/ZIP Code Phon e Number [facility] CENTRAL LAB [address] [address] Hepatitis B Surface Antigen (06/28/2021 2:27 PM CDT) [facility] Method Time Signature Hepatitis B Negative Negative 06/28/2021 [facility] Surface (Non (Non 8:12 PM CDT LABORATORY Antigen Reactive) Reactive) Specimen Anatomical Collection Method / Collection Time Recei giselle Time (Source) Location / Volume Laterality Blood Venipuncture / 06/28/2021 2:27 06/28/2021 2:28 Unknown PM CDT PM CDT [place] LAB_1 Performing Organization Address [facility] Phon e Number [facility] [place] [place] [address] HIV 1/2 Ag/Ab 4th Generation (06/28/2021 2:27 PM CDT) [facility] Method [place] Signature HIV 1/2 Negative Negative 06/28/2021 [facility] Antigen/Antib (Non (Non 7:52 PM CDT LABORATORY zachary (4th Reactive) Reactive) generation) Comment: HIV-1 p24 Antigen and HIV-1/HIV -2 Antibody not detected Specimen Anatomical Collection Method / Collection Time Recei giselle Time (Source) Location / Volume Laterality Blood Venipuncture / 06/28/2021 2:27 06/28/2021 2:28 Unknown PM CDT PM CDT e-Tag DO LAB_1 Performing Organization Address City/[facility]/ZIP Code Phon e Number [facility] [address] [place] [address] Hepatitis C Antibody, with Reflex (06/28/2021 2:27 PM CDT) [facility] Method Time Signature Hepatitis C [...] Q Black DO LAB_1 Performing Organization Address City/[facility] Phon e Number [facility] [address] [place] [address] Liver Panel(Hepatic Function Panel) (06/28/2021 2:27 PM CDT) athologist Signature Alkaline 70 40 - 150 06/28/2021 [place] Phosphatase U/L 5:11 PM CDT LABORATORY Bilirubin, Total 0.5 0.2 - 1.2 06/28/2021 [place] mg/dL 5:11 PM CDT LABORATORY Bilirubin, 0.2 0.0 - 0.5 06/28/2021 [place] Direct mg/dL 5:11 PM CDT LABORATORY AST (SGOT) 18 10 - 40 06/28/2021 [place] U/L 5:11 PM CDT LABORATORY ALT (SGPT) 21 0 - 55 U/L 06/28/2021 [place] 5:11 PM CDT LABORATORY Protein, Total 6.5 6.4 - 8.3 06/28/2021 [place] g/dL 5:11 PM CDT LABORATORY Albumin 3.9 3.5 - 5.0 06/28/2021 [place] g/dL 5:11 PM CDT LABORATORY Specimen Anatomical Collection Method / Collection Time Recei giselle Time (Source) Location / Volume Laterality Blood Venipuncture / 06/28/2021 2:27 06/28/2021 2:28 Unknown PM CDT PM CDT [facility] Q Black DO LAB_1 Performing Organization Address City/State/[facility] Phon e Number [facility] [address] [place] [address] (ABNORMAL) Creatinine / GFR (06/28/2021 2:27 PM CDT) [facility] gist Method Time Signature Creatinine 0.40 (L) 0.55 - 06/28/2021 [place] 1.02 mg/dL 5:11 PM CDT LABORATORY GFR, Estimated >60 >60 06/28/2021 [place] mL/min/1.7 5:11 PM CDT LABORATORY 3m2 Specimen Anatomical Collection Method / Collection Time Recei giselle Time (Source) Location / Volume Laterality Blood Venipuncture / 06/28/2021 2:27 06/28/2021 2:28 Unknown PM CDT PM CDT Lorenza Q Black DO LAB_1 Performing Organization Address City/State/ZIP Code Phon e Number [facility] [address] [place] [address] documented in this encounter Visit Diagnoses Diagnosis 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
== END 2022-08-05 15:08 | disposition home or self-care (01) ==
LOC: WOUND 15:07
PROVIDERS: PCP Family Medicine; Visit Provider Nurse Practitioner Family
DX: L89.314 Pressure ulcer of right buttock, stage 4 (principal); Q82.0 Hereditary lymphedema
CPT/HCPCS: 11042; 97605

== ENCOUNTER 2022-08-05 15:26 | Outpatient (CLI) | payer OTHER, SELFPAY ==
--- NOTE | 2022-08-05 15:30 | CRLHL7_ITS ---
For Patients: As a result of the Century Cures Act, medical imaging exams and procedure reports are released immediately into your electronic medical record. You may view this report before your referring provider. If you have questions, please contact your health care provider. INDICATION: Pressure ulcer. TECHNIQUE: Chest 2 views. COMPARISON: October 04, 2021. FINDINGS: Cardiovascular and mediastinum: Cardiomediastinal silhouette is within normal limits. Lungs and pleural spaces: Mild hypoinflation of the lungs, but the lungs are clear. No sign of pleural effusion. No pneumothorax. Bones and soft tissues: No significant findings. Demineralization of the visualized bones. Degenerative changes bilateral shoulders. Stable positioning of spinal rods. IMPRESSION: No acute findings and no significant change from the prior exam. Dictated by Nohemi Reyes MD @ 08/06/2022 1:32:01 AM (Electronically Signed)
== END 2022-08-05 15:27 | disposition home or self-care (01) ==
LOC: RAD 15:26
PROVIDERS: PCP Family Medicine; Visit Provider Nurse Practitioner Family
DX: L89.44 Pressure ulcer of contiguous site of back, buttock and hip, stage 4 (principal); L89.314 Pressure ulcer of right buttock, stage 4
CPT/HCPCS: 71046

== ENCOUNTER 2022-08-12 08:41 | Outpatient (CLI) | payer OTHER, SELFPAY ==
--- OUTSIDE RECORDS SUMMARY | 2022-08-12 08:43 | XMS_ITS | Clinical Summary ---
:1945 Author Organization [employer] [facility] [employer] [place] [address] Care Team Providers Name Role Phone Kallie Tamayo PARCEL POST CLERK Unavailable [facility] Unavailable Flo Mckeon MD Primary Care [...] Addre ss Type Group MEDICARE PPS MEDICARE [id number] 2011-Presen [address] [place] [address] [facility] [id number] 2019-Presen [address] [place] [address] Josh Major Personal/Famil Self 1945 [address] [facility] vance J y (Home) [place], [place] [phone] [address] (Work) Care Teams Sheet Layer Relationship Specialty Start Date End Date Flo Mckeon MD PCP - General Family Practice 10/04/211999 [place] [address] Kallie Tamayo, FROILAN Family [facility] 01/17/[address] [id number] [facility] 01/29/14
--- OUTSIDE RECORDS SUMMARY | 2022-08-12 08:43 | XMS_ITS | Encounter Summary ---
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) Lorenza Black DO Procedures XR Shoulder Rt 2+ Views [address] [place], [place] [address] Referral ID Status Reason Start Date Expiration Date Visits V isits Requested Authorized [id number] Incomplete 06/28/2021 09/27/2022 1 1 Encounter Details Date Type Department Care Team Description 06/28/2021 Ancillary [place] Lorenza Black DO Rheumatoid arthritis Procedure Radiology [address] [place] involving multiple [address] [facility] sites with positive Drive [place], [place] [address] (HRC) [id number] Social History Tobacco Use Types Packs/Day Years Used Date Smoking Tobacco: Never Assessed Sex Assigned at Date Recorded Not on file documented as of this encounter Plan of Treatment Upcoming Encounters Date Type Specialty Care Team Description 08/19/2022 Phone Visit Rheumatology Lorenza Black DO [address] [facility] [place] [address] (Wo rk) documented as of this encounter Procedures Procedure Name Priority Date/Time Associated Diagnosis Comme nts XR SHOULDER RT 2+ Routine 06/28/2021 2:55 PM Rheumatoid arthri tis Results for this VIEWS CDT involving multiple procedure are in sites with positive the resu lts rheumatoid factor section. (HRC) documented in this encounter Results XR Shoulder [...] (HRC) documented in this encounter Care Teams Auto Body Service Mechanic Relationship Specialty Start Date End Date Flo Mckeon MD PCP - General 06/21/211999 [place] [address] documented as of this encounter
--- OUTSIDE RECORDS SUMMARY | 2022-08-12 08:43 | XMS_ITS | Encounter Summary ---
:1945 Author Organization [employer] Address [address] [address] Care Team Providers Name Role Phone Flo Mckeon MD Primary Care Provider Encounter Details Date Type Department Care Team Description 06/28/2021 Lab Visit [facility] Rheumatoid arthritis [address] [place] [address] with positive rheumatoid [phone] factor (HRC) Social History Tobacco Use Types Packs/Day Years Used Date Smoking Tobacco: Never Assessed Sex Assigned at Date Recorded Not on file documented as of this encounter Plan of Treatment Upcoming Encounters Date Type Specialty Care Team Description 08/19/2022 Phone Visit Rheumatology Black, Lorenza Hernández, DO [address] [place] [address] [facility] [address] N [address] (Wo rk) documented as of this encounter [...] Gold Plus Mitogen (06/28/2021 2:28 PM CDT) P athologist Signature MITOGEN >10.000 IU/mL 07/02/2021 [facility] 8:53 AM CDT LABORATORY Specimen Anatomical Collection Method / Collection Time Recei giselle Time (Source) Location / Volume Laterality Blood Venipuncture / 06/28/2021 2:28 06/28/2021 2:28 Unknown PM CDT PM CDT Lorenza Black DO LAB_1 Performing Organization Address City/[facility] Phon e Number [facility] [address] [place] [address] TB QuantiFERON Gold Plus TB2 (06/28/2021 2:28 PM CDT) athologist Signature TB2 0.081 IU/mL 07/02/2021 [facility] 8:53 AM CDT LABORATORY Specimen Anatomical Collection Method / Collection Time Recei giselle Time (Source) Location / Volume Laterality Blood Venipuncture / 06/28/2021 2:28 06/28/2021 2:28 Unknown PM CDT PM CDT Lorenza Black DO LAB_1 Performing Organization Address City/[facility] Code Phon e Number [facility] [address] [place] [address] TB QuantiFERON Gold Plus TB1 (06/28/2021 2:28 PM CDT) athologist Signature TB1 0.094 IU/mL 07/02/2021 [facility] 8:54 AM CDT LABORATORY Specimen Anatomical Collection Method / Collection Time Recei giselle Time (Source) Location / Volume Laterality Blood Venipuncture / 06/28/2021 2:28 06/28/2021 2:28 Unknown PM CDT PM CDT Lorenza Black DO LAB_1 Performing Organization Address City/[facility] Phon e Number [facility] [address] [place] [address] TB QuantiFERON Gold Plus NIL (06/28/2021 2:28 PM CDT) [facility] Method Time Signature 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 NIL 0.024 IU/mL 07/02/2021 [facility] 8:54 AM LABORATORY CDT TB1-NIL 0.07 IU/mL 07/02/2021 [facility] 8:54 AM LABORATORY CDT TB2-NIL 0.06 IU/mL 07/02/2021 [facility] 8:54 AM LABORATORY CDT Mitogen-NIL 9.98 IU/mL 07/02/2021 [facility] 8:54 AM LABORATORY CDT Specimen Anatomical Collection Method / Collection Time Recei giselle Time (Source) Location / Volume Laterality Blood Venipuncture / 06/28/2021 2:28 06/28/2021 2:28 Unknown PM CDT PM CDT Narrative [facility] - 07/02/2021 8:54 A M CDT [...] Organization Address City/State/ZIP Code Phon e Number [facility] [address] [place] [address] (ABNORMAL) Complete Blood Count-W/Diff (06/28/2021 2:28 PM CDT) [facility] gist Method Time Signature WBC 12.1 (H) 3.5 - 10.5 06/28/2021 [facility] x10(9)/L 2:44 PM CDT LABORATORY RBC 5.26 (H) 3.90 - 06/28/2021 [facility] 5.03 2:44 PM CDT LABORATORY x10(12)/L Hemoglobin 15.2 12.0 - 06/28/2021 [facility] 15.5 g/dL 2:44 PM CDT LABORATORY HCT 48.5 (H) 34.9 - 06/28/2021 [facility] 44.5 % 2:44 PM CDT LABORATORY MCV 92.2 80.0 - 06/28/2021 [facility] 100.0 fL 2:44 PM CDT LABORATORY MCH 28.9 27.6 - 06/28/2021 [facility] 33.3 pg 2:44 PM CDT LABORATORY MCHC 31.3 (L) 31.5 - 06/28/2021 [facility] 35.2 g/dL 2:44 PM CDT LABORATORY RDW 13.8 11.9 - 06/28/2021 [facility] 15.5 % 2:44 PM CDT LABORATORY Platelets 307 150 - 450 06/28/2021 [facility] x10(9)/L 2:44 PM CDT LABORATORY Automated NRBC 0 <=0 /100 06/28/2021 [facility] WBC 2:44 PM CDT LABORATORY Neutrophil 10.8 (H) 1.7 - 7.0 06/28/2021 [facility] Absolute 10(9)/L 2:44 PM CDT LABORATORY Lymphocyte 0.9 (L) 1.0 - 4.8 06/28/2021 [facility] Absolute 10(9)/L 2:44 PM CDT LABORATORY Monocytes 0.3 0.2 - 0.9 06/28/2021 [facility] Absolute 10(9)/L 2:44 PM CDT LABORATORY Eosinophil 0.0 0.0 - 0.5 06/28/2021 [facility] Absolute 10(9)/L 2:44 PM CDT LABORATORY Basophil 0.0 0.0 - 0.3 06/28/2021 [facility] Absolute 10(9)/L 2:44 PM CDT LABORATORY Immature Gran % 0.7 (H) 0.0 - 0.5 06/28/2021 [facility] % 2:44 PM CDT LABORATORY Specimen Anatomical Collection Method / Collection Time Recei giselle Time (Source) Location / Volume Laterality Blood Venipuncture / 06/28/2021 2:28 06/28/2021 2:28 Unknown PM CDT PM CDT Lorenza Q Black DO LAB_1 Performing Organization Address City/[facility]/ZIP Code Phon e Number [facility] [address] [place] [address] Rheumatoid Factor, Quant (06/28/2021 2:27 PM CDT) Analysis Performed At Patho logist Time Signature Rheumatoid <15 <=30 IU/mL 06/28/2021 [facility] Factor, 7:52 PM CDT LABORATORY Quantitative Specimen Anatomical Collection Method / Collection Time Recei giselle Time (Source) Location / Volume Laterality Blood Venipuncture / 06/28/2021 2:27 06/28/2021 2:28 Unknown PM CDT PM CDT [employer] DO LAB_1 Performing Organization Address City/[facility]/ZIP Code Phon e Number [facility] [address] [place] [address] Anti-CCP Antibody (06/28/2021 2:27 PM CDT) [facility] Method Time Signature Anti-CCP Antibody 1 <7 U/mL [facility]/29/2021 [facility] PM CDT C[facility]AL LAB Anti-CCP Antibody Negative Negative 06/29/2021 [facility] Interpretation 1:16 PM CDT CENTRAL LAB Specimen Anatomical Collection Method / Collection Time Recei giselle Time (Source) Location / Volume Laterality Blood Venipuncture / 06/28/2021 2:27 06/28/2021 2:28 Unknown PM CDT PM CDT [employer] DO LAB_1 Performing Organization Address City/[facility]/ZIP Code Phon e Number [facility] CENTRAL LAB [address] [address] Hepatitis B Surface Antigen (06/28/2021 2:27 PM CDT) [facility] Method Time Signature Hepatitis B Negative Negative 06/28/2021 [facility] Surface (Non (Non 8:12 PM CDT LABORATORY Antigen Reactive) Reactive) Specimen Anatomical Collection Method / Collection Time Recei giselle Time (Source) Location / Volume Laterality Blood Venipuncture / 06/28/2021 2:27 06/28/2021 2:28 Unknown PM CDT PM CDT [employer] DO LAB_1 Performing Organization Address City/[facility] Phon e Number [facility] [address] [place] [address] HIV 1/2 Ag/Ab 4th Generation (06/28/2021 2:27 PM CDT) [facility] Method Time Signature HIV 1/2 Negative Negative 06/28/2021 [facility] Antigen/Antib (Non (Non 7:52 PM CDT LABORATORY zachary (4th Reactive) Reactive) generation) Comment: HIV-1 p24 Antigen and HIV-1/HIV -2 Antibody not detected Specimen Anatomical Collection Method / Collection Time Recei giselle Time (Source) Location / Volume Laterality Blood Venipuncture / 06/28/2021 2:27 06/28/2021 2:28 Unknown PM CDT PM CDT Lorenza Q Black DO LAB_1 Performing Organization Address [facility]/ZIP [facility] Phon e Number [facility] [address] [place] [address] Hepatitis C Antibody, with Reflex (06/28/2021 2:27 PM CDT) [facility] gist Method Time Signature Hepatitis C Negative Negative 06/28/2021 [facility] Antibody (Non (Non 7:52 PM CDT LABORATORY Reactive) Reactive) Comment: Antibodies to HCV not detected. Does not exclude the possiblity of exposure to HCV. Specimen Anatomical Collection Method / Collection Time Recei giselle Time (Source) Location / Volume Laterality Blood Venipuncture / 06/28/2021 2:27 06/28/2021 2:28 Unknown PM CDT PM CDT [facility] LAB_1 Performing Organization Address [facility] Phon e Number [facility] [address] [place] [address] Liver Panel(Hepatic Function Panel) (06/28/2021 2:27 PM CDT) athologist [facility] Alkaline 70 40 - 150 06/28/2021 [facility] Phosphatase U/L 5:11 PM CDT LABORATORY Bilirubin, Total 0.5 0.2 - 1.2 06/28/2021 [facility] mg/dL 5:11 PM CDT LABORATORY Bilirubin, 0.2 0.0 - 0.5 06/28/2021 [facility] Direct mg/dL 5:11 PM CDT LABORATORY AST (SGOT) 18 10 - 40 06/28/2021 [facility] U/L 5:11 PM CDT LABORATORY ALT (SGPT) 21 0 - 55 U/L 06/28/2021 [facility] 5:11 PM CDT LABORATORY Protein, Total 6.5 6.4 - 8.3 06/28/[address] [facility] g/dL 5:11 PM CDT LABORATORY Albumin 3.9 3.5 - 5.0 06/28/2021 [facility] g/dL 5:11 PM CDT LABORATORY Specimen Anatomical Collection Method / Collection Time Recei giselle Time (Source) Location / Volume Laterality Blood Venipuncture / 06/28/2021 2:27 06/28/2021 2:28 Unknown PM CDT PM CDT Lorenza Q Black DO LAB_1 Performing Organization Address City/[facility]/ZIP Code Phon e Number [facility] [address] [place], [place] [phone] (ABNORMAL) Creatinine / GFR (06/28/2021 2:27 PM CDT) [facility] gist Method Time Signature Creatinine 0.40 (L) 0.55 - 06/28/2021 [facility] 1.02 mg/dL 5:11 PM CDT LABORATORY GFR, Estimated >60 >60 06/28/2021 [facility] mL/min/1.7 5:11 PM CDT LABORATORY 3m2 Specimen Anatomical Collection Method / Collection Time Recei giselle Time (Source) Location / Volume Laterality Blood Venipuncture / 06/28/2021 2:27 06/28/2021 2:28 Unknown PM CDT PM CDT Lorenza [employer] Black DO LAB_1 Performing Organization Address [facility]/ZIP Code Phon e Number [facility] [address] [place], [place] [address] documented in this encounter Visit Diagnoses Diagnosis 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
--- OUTSIDE RECORDS SUMMARY | 2022-08-12 08:43 | XMS_ITS | Encounter Summary ---
:1945 Author Organization [facility] Address [address] [address] Care Team Providers Name Role Phone Flo Mckeon MD Primary Care Provider Reason for Visit Reason Comments Refill Encounter Details Date Type Department Care Team Description 12/12/2021 Refill [facility] [address] Lorenza Black, DO Refill Rheumatology [address] [place] [address] [place] [address] [phone] Social History Tobacco Use Types Packs/Day Years Used Date Smoking Tobacco: Never Assessed Sex Assigned at Date Recorded Not on file documented as of this encounter Nursing Notes Akiko Vega LPN - 12/12/2021 12:22 PM CST Left message informing patient. ISTRY ASSOCIATE [facility] Roman PA-C - 12/12/2021 12:18 PM [...] with Dr. Black as soon as possible. ISTRY ASSOCIATE documented in this encounter Plan of Treatment Upcoming Encounters Date Type Specialty Care Team Description 08/19/2022 Phone Visit Rheumatology Sofia, Lorenza Hernández, DO [address] [facility] [place] [address] (Wo rk) documented as of this encounter Visit Diagnoses Not on filedocumented in this encounter Care Teams Senior Integration Developer Relationship Specialty Start Date End Date Flo Mckeon MD PCP - General 06/21/211999 [place] [address] documented as of this encounter
--- OUTSIDE RECORDS SUMMARY | 2022-08-12 08:43 | XMS_ITS | Encounter Summary ---
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) Lorenza Black DO Procedures XR Hands 1 View Bilat Arthritis [address] [place], [place] [address] Referral ID Status Reason Start Date Expiration Date Visits V isits Requested Authorized [id number] Incomplete 06/28/2021 09/27/2022 1 1 Encounter Details Date Type Department Care Team Description 06/28/2021 Ancillary [place] Lorenza Black DO Rheumatoid arthritis Procedure Radiology [address] involving multiple [address] [facility] sites with positive Drive [place], [place] [address] (HRC) [id number] Social History Tobacco Use Types Packs/Day Years Used Date Smoking Tobacco: Never Assessed Sex Assigned at Date Recorded Not on file documented as of this encounter Plan of Treatment Upcoming Encounters Date Type Specialty Care Team Description 08/19/2022 Phone Visit Rheumatology Lorenza Black DO [address] [employer] [address] [address] (Wo rk) documented as of this encounter Procedures Procedure Name Priority Date/Time Associated Diagnosis Comme nts XR HANDS 1 VIEW Routine 06/28/2021 2:55 PM Rheumatoid arthriti s Results for this BILAT ARTHRITIS CDT involving multiple proced ure are in sites with positive the [facility] rheumatoid factor section. (HRC) documented in this encounter Results XR Hands [...] (HRC) documented in this encounter Care Teams Sheepskin Pickler Relationship Specialty Start Date End Date Flo Mckeon MD PCP - General 06/21/211999 [place] [address] documented as of this encounter
--- OUTSIDE RECORDS SUMMARY | 2022-08-12 08:43 | XMS_ITS | Clinical Summary ---
:1945 Author Organization [employer] Address [address] [place] [address] Care Team Providers Name Role Phone Flo [...] for each transition of care or referral. [facility] Medications Medication Sig Dispensed Refills Start Date [...] tablet needed pseudoephedrine Daily 0 Acti ve ([id number]) 120 MG 12 hour release tablet calcium [...] Specialty Care Team Description 06/13/2022 Refill Rheumatology Lorenza Black DO Refill from Last 3 Months Immunizations Name Administration Dates Next Due DT Ped 03/23/1987 Social History Tobacco Use Types Packs/Day Years Used Date Smoking Tobacco: Never Assessed Sex Assigned at Date Recorded Not on file Plan of Treatment Upcoming Encounters Date Type Specialty Care Team Description 08/19/2022 Phone Visit Rheumatology Lorenza Black DO [address] [address] (Wo rk) Health Maintenance Due Date Last Done Comments [...] Addre ss Type Group AETNA AET[employer] [id number] 2019-Present [phone] [address] Medicare MEDICARE 2 [place], [facility] [id number] [place]rito, Personal/Family Self 1945 [address] [facility] (Home) [facility] [place] [address] Care Teams Sr. Manager Corporate Communications Relationship Specialty Start Date End Date Flo Mckeon MD PCP - General 06/21/211999 [place] [address]
--- OUTSIDE RECORDS SUMMARY | 2022-08-12 08:43 | XMS_ITS | Encounter Summary ---
:1945 Author Organization [employer] Address [address] [place] [address] Care Team Providers Name Role Phone Flo Mckeon MD Primary Care Provider Reason for Visit Reason Comments Phone Visit Follow-up Encounter Details Date Type Department Care Team Description 07/31/2021 Phone Visit [place] Lorenza Black DO Rheumatoid arthritis with negative rheum atoid factor, involving unspecified site (HRC) (Primary Dx); Rheumatology [address] [place] [address] Encounter for long-term (cur rent) use of medications [address] [place] [address] [place], [place] [phone] [address] (Wo rk) Social History Tobacco Use Types [...] The patient is located at Home in [facility]. The consulting provider is located in [place], [place]. documented in this encounter Plan of Treatment Upcoming Encounters Date Type Specialty Care Team Description 08/19/2022 Phone Visit Rheumatology Lorenza Black DO [address] [facility] [address] [address] (Wo rk) documented as of this encounter Visit Diagnoses Diagnosis Rheumatoid arthritis with negative rheum atoid factor, involving unspecified site (HRC) - Primary Encounter for long-term (current) use of medications Encounter for long-term (current) use of other medications documented in this encounter Care Teams Heel Attacher Wood Relationship Specialty Start Date End Date Flo Mckeon MD PCP - General 06/21/211999 [place] [address] documented as of this encounter
--- OUTSIDE RECORDS SUMMARY | 2022-08-12 08:43 | XMS_ITS | Encounter Summary ---
:1945 Author Organization [facility] Address [address], [place] [address] Care Team Providers Name Role Phone Flo Mckeon MD Primary Care Provider Reason for Visit Reason Comments Refill Encounter Details Date Type Department Care Team Description 06/13/2022 Refill [facility] 38[address] Lorenza Black, Refill Rheumatology [address] [place] [address] [place], [place] [address] [phone] Social History Tobacco Use Types Packs/Day Years [...] Team Description 08/19/2022 Phone Visit Rheumatology Lorenza Black, [address] [facility] [place] [address] [address] (Wo rk) documented as of this encounter Visit Diagnoses Diagnosis Rheumatoid arthritis with negative rheum atoid factor, involving unspecified site (HRC) Encounter for long-term (current) use of medications Encounter for long-term (current) use of other medications documented in this encounter Care Teams Caterpillar Driver Relationship Specialty Start Date End Date Flo Mckeon MD PCP - General 06/21/211999 [place] [address] documented as of this encounter
--- OUTSIDE RECORDS SUMMARY | 2022-08-12 08:43 | XMS_ITS | Encounter Summary ---
:1945 Author Organization [facility] Address [address], [place] [address] Care Team Providers Name Role Phone Flo Mckeon MD Primary Care Provider Reason for Visit Reason Comments Phone Visit Follow-up Encounter Details Date Type Department Care Team Description 09/13/2021 Phone Visit [place] Lorenza Black DO Rheumatoid arthritis, Rheumatology [address] [facility] involving unspecified [address] [facility] site, [place] [address] [place], [place] whether rheumatoid [phone] factor present (HRC) [phone] (Wo rk) (Primary Dx) Social History Tobacco Use Types Packs/Day Years Used Date Smoking Tobacco: Never Assessed Sex Assigned at Date Recorded Not on file documented as of this encounter Progress Notes Lorenza Black DO - 09/13/2021 2:45 PM CST Error STUDY CLERK documented in this encounter Plan of Treatment Upcoming Encounters Date Type Specialty Care Team Description 08/19/2022 Phone Visit Rheumatology Lorenza Black DO 3800 [facility] et [facility] N [address] (Wo rk) documented as of this encounter Visit Diagnoses Diagnosis Rheumatoid arthritis, involving unspecif ied site, unspecified whether rheumatoid factor present (HRC) - Primary documented in this encounter Care Teams Sanipractic Physician Relationship Specialty Start Date End Date Flo Mckeon MD PCP - General 06/21/211999 [place] [address] documented as of this encounter
--- OUTSIDE RECORDS SUMMARY | 2022-08-12 08:43 | XMS_ITS | Encounter Summary ---
:1945 Author Organization [employer] Address [address], [place] [address] Care Team Providers Name Role Phone Flo cMkeon MD Primary Care Provider Reason for Visit Reason Comments LAB RESULTS Encounter Details Date Type Department Care Team Description 07/02/2021 Telephone [facility] 38[address] Lorenza Black DO LAB RESULTS Rheumatology [address] [place] [address] [place] [address] [phone] Social History Tobacco Use Types Packs/Day Years [...] Phone Visit Rheumatology Black, Lorenza Hernández, DO [address] [place] [address] [address] (Wo rk) documented as of this encounter Visit Diagnoses Diagnosis Rheumatoid arthritis with negative rheum atoid factor, involving unspecified site (HRC) - Primary Encounter for long-term (current) use of medications Encounter for long-term (current) use of other medications documented in this encounter Care Teams Sql Analyst Relationship Specialty Start Date End Date Flo Mckeon MD PCP - General 06/21/211999 [place] [address] documented as of this encounter
--- OUTSIDE RECORDS SUMMARY | 2022-08-12 08:44 | XMS_ITS | Encounter Summary ---
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) Lorenza Black DO Procedures XR Shoulder Rt 2+ Views [address] [place], [place] [address] Referral ID Status Reason Start Date Expiration Date Visits V isits Requested Authorized [id number] Incomplete 06/28/2021 09/27/2022 1 1 Procedure/Equipment (Routine) - Incomplete Specialty Diagnoses / Procedures Referred By Contact Refer red To Contact Diagnoses 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) Lorenza Black DO Procedures XR Hands 1 View Bilat Arthritis [address] [place], [place] [address] Referral ID Status Reason Start Date Expiration Date Visits V isits Requested Authorized [id number] Incomplete 06/28/2021 09/27/2022 1 1 Reason for Visit Reason Comments CONSULT Encounter Details Date Type Department Care Team Description 06/28/2021 Office Visit [place] Lorenza Black DO 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 She has been on prednisone 5 mg and then recently 10 mg [id number] Today the patient states that her hands [...] 6/10. She laments the inability to pickle processor her grandchildren. She has tried anti-inflammatories and [...] smoked. 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 Exam Gen: NAD, [...] 65 minutes including, but not limited to, [id number] time spent reviewing records, counseling, and coordination of care. documented in this encounter Plan of Treatment Upcoming Encounters Date Type Specialty Care Team Description 08/19/2022 Phone Visit Rheumatology Black, Lorenza Hernández, DO [address] et [facility] [address] [place] [address] (Wo rk) documented as of this encounter Results XR Hands [...] joints. Lorenza Q Black DO RAD GD XR Shoulder Rt 2+ [...] joint. Lorenza Q Black DO RAD GD Rheumatoid Factor, Quant (06/28/2021 2:27 PM CDT) Analysis Performed At Patho logist Time Signature Rheumatoid <15 <=30 IU/mL 06/28/2021 [facility] Factor, 7:52 PM CDT LABORATORY Quantitative Specimen Anatomical Collection Method / Collection Time Recei giselle Time (Source) Location / Volume Laterality Blood Venipuncture / 06/28/2021 2:27 06/28/2021 2:28 Unknown PM CDT PM CDT Lorenza Edgar Black DO LAB_1 Performing Organization Address [facility] Code Phon e Number [facility] [address] [place] [address] Anti-CCP Antibody (06/28/2021 2:27 PM CDT) [facility] Method Time Signature Anti-CCP Antibody 1 <7 U/mL 06/29/2021 [facility] 1:16 PM CDT [facility]AL [facility] Anti-CCP Antibody Negative Negative 06/29/2021 [facility] Interpretation 1:16 PM CDT C[facility]AL LAB Specimen Anatomical Collection Method / Collection Time Recei giselle Time (Source) Location / Volume Laterality Blood Venipuncture / 06/28/2021 2:27 06/28/2021 2:28 Unknown PM CDT PM CDT [facility] LAB_1 Performing Organization Address [facility] Phon e Number [facility] [address] [address] Hepatitis B Surface Antigen (06/28/2021 2:27 PM CDT) [facility] Method Time Signature Hepatitis B Negative Negative 06/28/2021 [facility] Surface (Non (Non 8:12 PM CDT LABORATORY Antigen Reactive) Reactive) Specimen Anatomical Collection Method / Collection Time Recei giselle Time (Source) Location / Volume Laterality Blood Venipuncture / 06/28/2021 2:27 06/28/2021 2:28 Unknown PM CDT PM CDT [facility] LAB_1 Performing Organization Address City/[facility] Phon e Number [facility] [address] [place] [address] HIV 1/2 Ag/Ab 4th Generation (06/28/2021 2:27 PM CDT) [facility] Method Time Signature HIV 1/2 Negative Negative 06/28/2021 [facility] Antigen/Antib (Non (Non 7:52 PM CDT LABORATORY zachary (4th Reactive) Reactive) generation) Comment: HIV-1 p24 Antigen and HIV-1/HIV -2 Antibody not detected Specimen Anatomical Collection Method / Collection Time Recei giselle Time (Source) Location / Volume Laterality Blood Venipuncture / 06/28/2021 2:27 06/28/2021 2:28 Unknown PM CDT PM CDT [facility] LAB_1 Performing Organization Address [facility] Phon e Number [facility] [address] [place] [address] Hepatitis C Antibody, with Reflex (06/28/2021 2:27 PM CDT) Patholo gist Method Time Signature Hepatitis C Negative Negative 06/28/2021 [facility] Antibody (Non (Non 7:52 PM CDT LABORATORY Reactive) Reactive) Comment: Antibodies to HCV not detected. Does not exclude the possiblity of exposure to HCV. Specimen Anatomical Collection Method / Collection Time Recei giselle Time (Source) Location / Volume Laterality Blood Venipuncture / 06/28/2021 2:27 06/28/2021 2:28 Unknown PM CDT PM CDT [facility] LAB_1 Performing Organization Address [facility] e Number [facility] [place] [address] Liver Panel(Hepatic Function Panel) (06/28/2021 2:27 PM CDT) P athologist Signature Alkaline 70 40 - 150 06/28/2021 [facility] Phosphatase U/L 5:11 PM CDT LABORATORY Bilirubin, Total 0.5 0.2 - 1.2 06/28/2021 [place] mg/dL 5:11 PM CDT LABORATORY Bilirubin, 0.2 0.0 - 0.5 06/28/2021 [facility] Direct mg/dL 5:11 PM CDT LABORATORY AST (SGOT) 18 10 - 40 06/28/2021 [place] U/L 5:11 PM CDT LABORATORY ALT (SGPT) 21 0 - 55 U/L 06/28/2021 [facility] 5:11 PM CDT LABORATORY Protein, Total 6.5 6.4 - 8.3 06/28/2021 [facility] g/dL 5:11 PM CDT LABORATORY Albumin 3.9 3.5 - 5.0 06/28/2021 [facility] g/dL 5:11 PM CDT LABORATORY Specimen Anatomical Collection Method / Collection Time Recei giselle Time (Source) Location / Volume Laterality Blood Venipuncture / 06/28/2021 2:27 06/28/2021 2:28 Unknown PM CDT PM CDT Lorenza Black DO LAB_1 Performing Organization Address [facility]/ZIP Code Phon e Number [facility] [address] [place] [address] (ABNORMAL) Creatinine / GFR (06/28/2021 2:27 PM CDT) [facility] gist Method Time Signature Creatinine 0.40 (L) 0.55 - 06/28/2021 [facility] 1.02 mg/dL 5:11 PM CDT LABORATORY GFR, Estimated >60 >60 06/28/2021 [facility] mL/min/1.7 5:11 PM CDT LABORATORY 3m2 Specimen Anatomical Collection Method / Collection Time Recei giselle Time (Source) Location / Volume Laterality Blood Venipuncture / 06/28/2021 2:27 06/28/2021 2:28 Unknown PM CDT PM CDT Lorenza Black DO LAB_1 Performing Organization Address [facility]/ZIP Code Phon e Number [facility] [address] [place], [place] [phone] documented in this encounter Visit Diagnoses Diagnosis 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
--- OUTSIDE RECORDS SUMMARY | 2022-08-12 08:44 | XMS_ITS | Encounter Summary ---
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 [address] [place] [address] Social History Tobacco Use Types Packs/Day Years Used Date Smoking Tobacco: Never Assessed Sex Assigned at Date Recorded Not on file documented as of this encounter Plan of Treatment Upcoming Encounters Date Type Specialty Care Team Description 08/19/2022 Phone Visit Rheumatology Black, Lorenza Hernández, DO [address] et [facility], N [address] (Wo rk) documented as of this encounter Visit Diagnoses Not on filedocumented in this encounter Care Teams Cook Barbecue Relationship Specialty Start Date End Date Unassigned, Provider PCP - General 07/16/00 06/20/[address] [place] [address] documented as of this encounter
== END 2022-08-12 08:42 | disposition home or self-care (01) ==
LOC: WOUND 08:41
PROVIDERS: PCP Family Medicine; Visit Provider Nurse Practitioner Family
DX: M86.68 Other chronic osteomyelitis, other site (principal); L89.314 Pressure ulcer of right buttock, stage 4; I87.2 Venous insufficiency (chronic) (peripheral); Q82.0 Hereditary lymphedema; Z99.3 Dependence on wheelchair
CPT/HCPCS: 11042; G0277

== ENCOUNTER 2022-08-19 08:37 | Outpatient (CLI) | payer OTHER, SELFPAY ==
--- OUTSIDE RECORDS SUMMARY | 2022-08-19 08:42 | XMS_ITS | Encounter Summary ---
:1945 Author Organization [employer] Address [address], [place] [address] Care Team Providers Name Role Phone Flo Mckeon MD Primary Care Provider Reason for Visit Reason Comments LAB RESULTS Encounter Details Date Type Department Care Team Description 07/02/2021 Telephone [facility] [address] Lorenza Black DO LAB RESULTS Rheumatology [address] [place] [address] [place] [address] [phone] Social History Tobacco Use Types Packs/Day Years [...] Phone Visit Rheumatology Black, Lorenza Hernández, DO [address] [place] [address] [address] (Wo rk) documented as of this encounter Visit Diagnoses Diagnosis Rheumatoid arthritis with negative rheum atoid factor, involving unspecified site (HRC) - Primary Encounter for long-term (current) use of medications Encounter for long-term (current) use of other medications documented in this encounter Care Teams Slate Trimmer Relationship Specialty Start Date End Date Flo Mckeon MD PCP - General 06/21/211999 [place] [address] documented as of this encounter
--- OUTSIDE RECORDS SUMMARY | 2022-08-19 08:42 | XMS_ITS | Encounter Summary ---
:1945 Author Organization [facility] [facility] Address [address], [place] [address] Care Team Providers Name Role Phone Flo Mckeon MD Primary Care Provider Encounter Details Date Type Department Care Team Description 06/28/2021 Lab Visit [facility] Rheumatoid arthritis [email or web address] [address] with positive rheumatoid [phone] factor (HRC) Social History Tobacco Use Types Packs/Day Years Used Date Smoking Tobacco: Never Assessed Sex Assigned at Date Recorded Not on file documented as of this encounter Plan of Treatment Upcoming Encounters Date Type Specialty Care Team Description 08/19/2022 Phone Visit Rheumatology Black, Lorenza Hernández, DO [address] [facility] N 698106 (Wo rk) documented as of this encounter [...] P athologist Signature MITOGEN >10.000 IU/mL 07/02/2021 [facility] 8:53 AM CDT LABORATORY Specimen Anatomical Collection Method / Collection Time Recei giselle Time (Source) Location / Volume Laterality Blood Venipuncture / 06/28/2021 2:28 06/28/2021 2:28 Unknown PM CDT PM CDT Lorenza Black DO LAB_1 Performing Organization Address City/[facility] Phon e Number [facility] [address] [place] [address] TB QuantiFERON Gold Plus TB2 (06/28/2021 2:28 PM CDT) athologist Signature TB2 0.081 IU/mL 07/02/2021 [facility] 8:53 AM CDT LABORATORY Specimen Anatomical Collection Method / Collection Time Recei giselle Time (Source) Location / Volume Laterality Blood Venipuncture / 06/28/2021 2:28 06/28/2021 2:28 Unknown PM CDT PM CDT Lorenza Black DO LAB_1 Performing Organization Address City/[facility] Code Phon e Number [facility] [address] [place] [address] TB QuantiFERON Gold Plus TB1 (06/28/2021 2:28 PM CDT) athologist Signature TB1 0.094 IU/mL 07/02/2021 [facility] 8:54 AM CDT LABORATORY Specimen Anatomical Collection Method / Collection Time Recei giselle Time (Source) Location / Volume Laterality Blood Venipuncture / 06/28/2021 2:28 06/28/2021 2:28 Unknown PM CDT PM CDT Lorenza Black DO LAB_1 Performing Organization Address City/[facility] Phon e Number [facility] [address] [place] [address] TB QuantiFERON Gold Plus NIL (06/28/2021 2:28 PM CDT) [facility] Method Time Signature 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 NIL 0.024 IU/mL 07/02/2021 [facility] 8:54 AM LABORATORY CDT TB1-NIL 0.07 IU/mL 07/02/2021 [facility] 8:54 AM LABORATORY CDT TB2-NIL 0.06 IU/mL 07/02/2021 [facility] 8:54 AM LABORATORY CDT Mitogen-NIL 9.98 IU/mL 07/02/2021 [facility] 8:54 AM LABORATORY CDT Specimen Anatomical Collection Method / Collection Time Recei giselle Time (Source) Location / Volume Laterality Blood Venipuncture / 06/28/2021 2:28 06/28/2021 2:28 Unknown PM CDT PM CDT Narrative [facility] - 07/02/2021 8:54 A M CDT [...] Organization Address City/State/ZIP Code Phon e Number [facility] [address] [place] [address] (ABNORMAL) Complete Blood Count-W/Diff (06/28/2021 2:28 PM CDT) [facility] gist Method Time Signature WBC 12.1 (H) 3.5 - 10.5 06/28/2021 [place] x10(9)/L 2:44 PM CDT LABORATORY RBC 5.26 (H) 3.90 - 06/28/2021 [place] 5.03 2:44 PM CDT LABORATORY x10(12)/L Hemoglobin 15.2 12.0 - 06/28/2021 [place] 15.5 g/dL 2:44 PM CDT LABORATORY HCT 48.5 (H) 34.9 - 06/28/2021 [place] 44.5 % 2:44 PM CDT LABORATORY MCV 92.2 80.0 - 06/28/2021 [place] 100.0 fL 2:44 PM CDT LABORATORY MCH 28.9 27.6 - 06/28/2021 [place] 33.3 pg 2:44 PM CDT LABORATORY MCHC 31.3 (L) 31.5 - 06/28/2021 [place] 35.2 g/dL 2:44 PM CDT LABORATORY RDW 13.8 11.9 - 06/28/2021 [place] 15.5 % 2:44 PM CDT LABORATORY Platelets 307 150 - 450 06/28/2021 [place] x10(9)/L 2:44 PM CDT LABORATORY Automated NRBC 0 <=0 /100 06/28/2021 [place] WBC 2:44 PM CDT LABORATORY Neutrophil 10.8 (H) 1.7 - 7.0 06/28/2021 [place] Absolute 10(9)/L 2:44 PM CDT LABORATORY Lymphocyte 0.9 (L) 1.0 - 4.8 06/28/2021 [place] Absolute 10(9)/L 2:44 PM CDT LABORATORY Monocytes 0.3 0.2 - 0.9 06/28/2021 [place] Absolute 10(9)/L 2:44 PM CDT LABORATORY Eosinophil 0.0 0.0 - 0.5 06/28/2021 [place] Absolute 10(9)/L 2:44 PM CDT LABORATORY Basophil 0.0 0.0 - 0.3 06/28/2021 [place] Absolute 10(9)/L 2:44 PM CDT LABORATORY Immature Gran % 0.7 (H) 0.0 - 0.5 06/28/2021 [place] % 2:44 PM CDT LABORATORY Specimen Anatomical Collection Method / Collection Time Recei giselle Time (Source) Location / Volume Laterality Blood Venipuncture / 06/28/2021 2:28 06/28/2021 2:28 Unknown PM CDT PM CDT Lorenza Q Black DO LAB_1 Performing Organization Address City/[facility]/ZIP Code Phon e Number [facility] [address] [place] [address] Rheumatoid Factor, Quant (06/28/2021 2:27 PM CDT) Analysis Performed At Patho logist Time Signature Rheumatoid <15 <=30 IU/mL 06/28/2021 [facility] Factor, 7:52 PM CDT LABORATORY Quantitative Specimen Anatomical Collection Method / Collection Time Recei giselle Time (Source) Location / Volume Laterality Blood Venipuncture / 06/28/2021 2:27 06/28/2021 2:28 Unknown PM CDT PM CDT [employer] DO LAB_1 Performing Organization Address City/[facility]/ZIP Code Phon e Number [facility] [address] [place] [address] Anti-CCP Antibody (06/28/2021 2:27 PM CDT) [facility] Method Time Signature Anti-CCP Antibody 1 <7 U/mL 06/29/2021 [facility] 1:16 PM CDT CENTRAL LAB Anti-CCP Antibody Negative Negative 06/29/2021 [facility] Interpretation 1:16 PM CDT CENTRAL LAB Specimen Anatomical Collection Method / Collection Time Recei giselle Time (Source) Location / Volume Laterality Blood Venipuncture / 06/28/2021 2:27 06/28/2021 2:28 Unknown PM CDT PM CDT [employer] DO LAB_1 Performing Organization Address City/[facility]/ZIP Code Phon e Number [facility] [address] [address] Hepatitis B Surface Antigen (06/28/2021 2:27 PM CDT) [facility] Method Time Signature Hepatitis B Negative Negative 06/28/2021 [facility] Surface (Non (Non 8:12 PM CDT LABORATORY Antigen Reactive) Reactive) Specimen Anatomical Collection Method / Collection Time Recei giselle Time (Source) Location / Volume Laterality Blood Venipuncture / 06/28/2021 2:27 06/28/2021 2:28 Unknown PM CDT PM CDT [employer] DO LAB_1 Performing Organization Address City/[facility] Phon e Number [facility] [address] [place] [address] HIV 1/2 Ag/Ab 4th Generation (06/28/2021 2:27 PM CDT) [facility] Method Time Signature HIV 1/2 Negative Negative 06/28/2021 [facility] Antigen/Antib (Non (Non 7:52 PM CDT LABORATORY zachary (4th Reactive) Reactive) generation) Comment: HIV-1 p24 Antigen and HIV-1/HIV -2 Antibody not detected Specimen Anatomical Collection Method / Collection Time Recei giselle Time (Source) Location / Volume Laterality Blood Venipuncture / 06/28/2021 2:27 06/28/2021 2:28 Unknown PM CDT PM CDT Lorenza Q Black DO LAB_1 Performing Organization Address [facility]/ZIP [facility] Phon e Number [facility] [address] [place] [address] Hepatitis C Antibody, with Reflex (06/28/2021 2:27 PM CDT) [facility] gist Method Time Signature Hepatitis C Negative Negative 06/28/2021 [facility] Antibody (Non (Non 7:52 PM CDT LABORATORY Reactive) Reactive) Comment: Antibodies to HCV not detected. Does not exclude the possiblity of exposure to HCV. Specimen Anatomical Collection Method / Collection Time Recei giselle Time (Source) Location / Volume Laterality Blood Venipuncture / 06/28/2021 2:27 06/28/2021 2:28 Unknown PM CDT PM CDT [facility] LAB_1 Performing Organization Address [facility] Phon e Number [facility] [address] [place] [address] Liver Panel(Hepatic Function Panel) (06/28/2021 2:27 PM CDT) athologist [facility] Alkaline 70 40 - 150 06/28/2021 [facility] Phosphatase U/L 5:11 PM CDT LABORATORY Bilirubin, Total 0.5 0.2 - 1.2 06/28/2021 [place] mg/dL 5:11 PM CDT LABORATORY Bilirubin, 0.2 0.0 - 0.5 06/28/2021 [place] Direct mg/dL 5:11 PM CDT LABORATORY AST (SGOT) 18 10 - 40 06/28/2021 [place] U/L 5:11 PM CDT LABORATORY ALT (SGPT) 21 0 - 55 U/L 06/28/2021 [facility] [place] 5:11 PM CDT LABORATORY Protein, Total 6.5 6.4 - 8.3 06/28/2021 [facility] g/dL 5:11 PM CDT LABORATORY Albumin 3.9 3.5 - 5.0 06/28/2021 [facility] g/dL 5:11 PM CDT LABORATORY Specimen Anatomical Collection Method / Collection Time Recei giselle Time (Source) Location / Volume Laterality Blood Venipuncture / 06/28/2021 2:27 06/28/2021 2:28 Unknown PM CDT PM CDT Lorenza Q Black DO LAB_1 Performing Organization Address City/[facility]/ZIP Code Phon e Number [facility] [address] [place], [place] [phone] (ABNORMAL) Creatinine / GFR (06/28/2021 2:27 PM CDT) [facility] gist Method Time Signature Creatinine 0.40 (L) 0.55 - 06/28/2021 [facility] 1.02 mg/dL 5:11 PM CDT LABORATORY GFR, Estimated >60 >60 06/28/2021 [facility] mL/min/1.7 5:11 PM CDT LABORATORY 3m2 Specimen Anatomical Collection Method / Collection Time Recei giselle Time (Source) Location / Volume Laterality Blood Venipuncture / 06/28/2021 2:27 06/28/2021 2:28 Unknown PM CDT PM CDT Lorenza [employer] Black DO LAB_1 Performing Organization Address [facility]/ZIP Code Phon e Number [facility] [address] [place], [place] [phone] documented in this encounter Visit Diagnoses Diagnosis 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
--- OUTSIDE RECORDS SUMMARY | 2022-08-19 08:42 | XMS_ITS | Encounter Summary ---
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) Lorenza Black DO Procedures XR Shoulder Rt 2+ Views [address] [place], [place] [address] Referral ID Status Reason Start Date Expiration Date Visits V isits Requested Authorized [id number] Incomplete 06/28/2021 09/27/2022 1 1 Encounter Details Date Type Department Care Team Description 06/28/2021 Ancillary [place] Lorenza Black DO Rheumatoid arthritis Procedure Radiology [address] involving multiple [address] [facility] sites with positive Drive [place], [place] [address] (HRC) [address]67 Social History Tobacco Use Types Packs/Day Years Used Date Smoking Tobacco: Never Assessed Sex Assigned at Date Recorded Not on file documented as of this encounter Plan of Treatment Upcoming Encounters Date Type Specialty Care Team Description 08/19/2022 Phone Visit Rheumatology Lorenza Black DO [address] [facility] N [address] (Wo rk) documented as of this encounter [...] (HRC) documented in this encounter Care Teams Director Home Relationship Specialty Start Date End Date Flo Mckeon MD PCP - General 06/21/211999 [place] [address] documented as of this encounter
--- OUTSIDE RECORDS SUMMARY | 2022-08-19 08:42 | XMS_ITS | Encounter Summary ---
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) Lorenza Black DO Procedures XR Hands 1 View Bilat Arthritis [address] [place], [place] [address] Referral ID Status Reason Start Date Expiration Date Visits V isits Requested Authorized [id number] Incomplete 06/28/2021 09/27/2022 1 1 Encounter Details Date Type Department Care Team Description 06/28/2021 Ancillary [place] Lorenza Black DO Rheumatoid arthritis Procedure Radiology [address] involving multiple [address] [address] [facility] sites with positive [address] [place], [place] [address] (HRC) [id number] Social History Tobacco Use Types Packs/Day Years Used Date Smoking Tobacco: Never Assessed Sex Assigned at Date Recorded Not on file documented as of this encounter Plan of Treatment Upcoming Encounters Date Type Specialty Care Team Description 08/19/2022 Phone Visit Rheumatology Lorenza Black DO [address] [facility] N [address] (Wo rk) documented as of this encounter Procedures Procedure Name Priority Date/Time Associated Diagnosis Comme nts XR HANDS 1 VIEW Routine 06/28/2021 2:55 PM Rheumatoid arthriti s Results for this BILAT ARTHRITIS CDT involving multiple proced ure are in sites with positive the [facility] rheumatoid factor section. (HRC) documented in this [...] (HRC) documented in this encounter Care Teams Associate Programmer Relationship Specialty Start Date End Date Flo Mckeon MD PCP - General 06/21/211999 [place] [address] documented as of this encounter
--- OUTSIDE RECORDS SUMMARY | 2022-08-19 08:42 | XMS_ITS | Encounter Summary ---
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) Lorenza Black DO Procedures XR Shoulder Rt 2+ Views [address] [place], [place] [address] Referral ID Status Reason Start Date Expiration Date Visits V isits Requested Authorized [id number] Incomplete 06/28/2021 09/27/2022 1 1 Procedure/Equipment (Routine) - Incomplete Specialty Diagnoses / Procedures Referred By Contact Refer red To Contact Diagnoses 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) Lorenza Black DO Procedures XR Hands 1 View Bilat Arthritis [address] [place], [place] [address] Referral ID Status Reason Start Date Expiration Date Visits V isits Requested Authorized [id number] Incomplete 06/28/2021 09/27/2022 1 1 Reason for Visit Reason Comments CONSULT Encounter Details Date Type Department Care Team Description 06/28/2021 Office Visit [place] Lorenza Black DO 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 She has been on prednisone 5 mg and then recently 10 mg [id number] Today the patient states that her hands [...] to 6/10. 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 She has tried anti-inflammatories [...] smoked. 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 Exam Gen: NAD, [...] 65 minutes including, but not limited to, [id number] time spent reviewing records, counseling, and coordination of care. documented in this encounter Plan of Treatment Upcoming Encounters Date Type Specialty Care Team Description 08/19/2022 Phone Visit Rheumatology Black, Lorenza Hernández, DO [address] [facility] [place] N [address] (Wo rk) documented as of this encounter [...] Time Signature Rheumatoid <15 <=30 IU/mL 06/28/2021 [facility] Factor, 7:52 PM CDT LABORATORY Quantitative Specimen Anatomical Collection Method / Collection Time Recei giselle Time (Source) Location / Volume Laterality Blood Venipuncture / 06/28/2021 2:27 06/28/2021 2:28 Unknown PM CDT PM CDT Lorenza Edgar Black DO LAB_1 Performing Organization Address [facility] Code Phon e Number [facility] [address] [place] [address] Anti-CCP Antibody (06/28/2021 2:27 PM CDT) [facility] Method Time Signature Anti-CCP Antibody 1 <7 U/mL 06/29/2021 [facility] E[facility] 1:16 PM CDT CENTRAL LAB Anti-CCP Antibody Negative Negative 06/29/2021 [facility] Interpretation 1:16 PM CDT CENTRAL LAB Specimen Anatomical Collection Method / Collection Time Recei giselle Time (Source) Location / Volume Laterality Blood Venipuncture / 06/28/2021 2:27 06/28/2021 2:28 Unknown PM CDT PM CDT [facility] LAB_1 Performing Organization Address [facility] Phon e Number [facility] CENTRAL LAB [address] [address] Hepatitis B Surface Antigen (06/28/2021 2:27 PM CDT) [facility] Method Time Signature Hepatitis B Negative Negative 06/28/2021 [facility] Surface (Non (Non 8:12 PM CDT LABORATORY Antigen Reactive) Reactive) Specimen Anatomical Collection Method / Collection Time Recei giselle Time (Source) Location / Volume Laterality Blood Venipuncture / 06/28/2021 2:27 06/28/2021 2:28 Unknown PM CDT PM CDT [facility] LAB_1 Performing Organization Address City/[facility] Phon e Number [facility] [address] [place] [address] HIV 1/2 Ag/Ab 4th Generation (06/28/2021 2:27 PM CDT) [facility] Method Time Signature HIV 1/2 Negative Negative 06/28/2021 [facility] Antigen/Antib (Non (Non 7:52 PM CDT LABORATORY zachary (4th Reactive) Reactive) generation) Comment: HIV-1 p24 Antigen and HIV-1/HIV -2 Antibody not detected Specimen Anatomical Collection Method / Collection Time Recei giselle Time (Source) Location / Volume Laterality Blood Venipuncture / 06/28/2021 2:27 06/28/2021 2:28 Unknown PM CDT PM CDT [facility] LAB_1 Performing Organization Address [facility] Phon e Number [facility] [address] [place] [address] Hepatitis C Antibody, with Reflex (06/28/2021 2:27 PM CDT) Patholo gist Method Time Signature Hepatitis C Negative Negative 06/28/2021 [facility] Antibody (Non (Non 7:52 PM CDT LABORATORY Reactive) Reactive) Comment: Antibodies to HCV not detected. Does not exclude the possiblity of exposure to HCV. Specimen Anatomical Collection Method / Collection Time Recei giselle Time (Source) Location / Volume Laterality Blood Venipuncture / 06/28/2021 2:27 06/28/2021 2:28 Unknown PM CDT PM CDT [facility] LAB_1 Performing Organization Address [facility] e Number [facility] [place] [address] Liver Panel(Hepatic Function Panel) (06/28/2021 2:27 PM CDT) P athologist Signature Alkaline 70 40 - 150 06/28/2021 [facility] Phosphatase U/L 5:11 PM CDT LABORATORY Bilirubin, Total 0.5 0.2 - 1.2 06/28/2021 [place] mg/dL 5:11 PM CDT LABORATORY Bilirubin, 0.2 0.0 - 0.5 06/28/2021 [facility] Direct mg/dL 5:11 PM CDT LABORATORY AST (SGOT) 18 10 - 40 06/28/2021 [place] U/L 5:11 PM CDT LABORATORY ALT (SGPT) 21 0 - 55 U/L 06/28/2021 [facility] 5:11 PM CDT LABORATORY Protein, Total 6.5 6.4 - 8.3 06/28/2021 [facility] [facility] g/dL 5:11 PM CDT LABORATORY Albumin 3.9 3.5 - 5.0 06/28/2021 [facility] g/dL 5:11 PM CDT LABORATORY Specimen Anatomical Collection Method / Collection Time Recei giselle Time (Source) Location / Volume Laterality Blood Venipuncture / 06/28/2021 2:27 06/28/2021 2:28 Unknown PM CDT PM CDT Lorenza Black DO LAB_1 Performing Organization Address [facility]/ZIP Code Phon e Number [facility] [address] [place] [address] (ABNORMAL) Creatinine / GFR (06/28/2021 2:27 PM CDT) [facility] gist Method Time Signature Creatinine 0.40 (L) 0.55 - 06/28/2021 [facility] 1.02 mg/dL 5:11 PM CDT LABORATORY GFR, Estimated >60 >60 06/28/2021 [place] mL/min/1.7 5:11 PM CDT LABORATORY 3m2 Specimen Anatomical Collection Method / Collection Time Recei giselle Time (Source) Location / Volume Laterality Blood Venipuncture / 06/28/2021 2:27 06/28/2021 2:28 Unknown PM CDT PM CDT Lorenza Black DO LAB_1 Performing Organization Address [facility]/ZIP Code Phon e Number [facility] [address] [place], [place] [phone] documented in this encounter Visit Diagnoses Diagnosis 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
--- OUTSIDE RECORDS SUMMARY | 2022-08-19 08:42 | XMS_ITS | Encounter Summary ---
:1945 Author Organization [facility] Address [address], [place] [address] Care Team Providers Name Role Phone Flo Mckeon MD Primary Care Provider Reason for Visit Reason Comments Phone Visit Follow-up Encounter Details Date Type Department Care Team Description 09/13/2021 Phone Visit [place] Lorenza Black DO Rheumatoid arthritis, Rheumatology [address] [facility] involving unspecified [address] [facility] site, [place] [address] [place], [place] whether rheumatoid [phone] factor present (HRC) [phone] (Wo rk) (Primary Dx) Social History Tobacco Use Types Packs/Day Years Used Date Smoking Tobacco: Never Assessed Sex Assigned at Date Recorded Not on file documented as of this encounter Progress Notes Lorenza Black DO - 09/13/2021 2:45 PM CST Error ND [employer] documented in this encounter Plan of Treatment Upcoming Encounters Date Type Specialty Care Team Description 08/19/2022 Phone Visit Rheumatology Lorenza Black DO [address] [facility] et [facility] N [address] (Wo rk) documented as of this encounter Visit Diagnoses Diagnosis Rheumatoid arthritis, involving unspecif ied site, unspecified whether rheumatoid factor present (HRC) - Primary documented in this encounter Care Teams Professor Of Education Relationship Specialty Start Date End Date Flo Mckeon MD PCP - General 06/21/211999 [place] [address] documented as of this encounter
--- OUTSIDE RECORDS SUMMARY | 2022-08-19 08:42 | XMS_ITS | Clinical Summary ---
:1945 Author Organization [employer] [place] [address] Care Team Providers Name Role Phone Kallie Tamayo METAL CASKET MAKER Unavailable [facility], [facility] Unavailable Flo Mckeon MD Primary [...] Addre ss Type Group MEDICARE PPS MEDICARE [id number] 2011-Presen [address] [place] [address] [facility] [id number] 2019-Presen [address] [place] [address] Josh Major Personal/Famil Self 1945 [address] [facility] vance J y (Home) [place], [place] [phone] (Work) Care Teams Cloth Printer Helper Relationship Specialty Start Date End Date Flo Mckeon MD PCP - General Family Practice 10/04/211999 [place] [address] Kallie Tamayo, FROILAN [facility] 01/17/[address] [id number] [facility], [facility] 01/29/14
--- OUTSIDE RECORDS SUMMARY | 2022-08-19 08:42 | XMS_ITS | Encounter Summary ---
:1945 Author Organization [employer] Address [address], [place] [address] Care Team Providers Name Role Phone Flo Mckeon MD Primary Care Provider Reason for Visit Reason Comments Refill Encounter Details Date Type Department Care Team Description 06/13/2022 Refill [facility] 3800 Lorenza Black, Refill Rheumatology [address] [place] [address] [place], [place] [address] [phone] Social History Tobacco Use Types Packs/Day Years [...] Visit Rheumatology Lorenza Black, [address] [facility] [place] N [address] (Wo rk) documented as of this encounter Visit Diagnoses Diagnosis Rheumatoid arthritis with negative rheum atoid factor, involving unspecified site (HRC) Encounter for long-term (current) use of medications Encounter for long-term (current) use of other medications documented in this encounter Care Teams Fine Wire Drawer Relationship Specialty Start Date End Date Flo Mckeon MD PCP - General 06/21/211999 [place] [address] documented as of this encounter
--- OUTSIDE RECORDS SUMMARY | 2022-08-19 08:42 | XMS_ITS | Encounter Summary ---
:1945 Author Organization [employer] Address [address] [place] [address] Care Team Providers Name Role Phone Flo Mckeon MD Primary Care Provider Reason for Visit Reason Comments Phone Visit Follow-up Encounter Details Date Type Department Care Team Description 07/31/2021 Phone Visit [place] Lorenza Black DO Rheumatoid arthritis with negative rheum atoid factor, involving unspecified site (HRC) (Primary Dx); Rheumatology [address] [place] [address] Encounter for long-term (cur rent) use of medications [address] [place] [address] [place], [place] [phone] (Wo rk) Social History Tobacco Use Types [...] The patient is located at Home in [facility]. The consulting provider is located in [place], [place]. documented in this encounter Plan of Treatment Upcoming Encounters Date Type Specialty Care Team Description 08/19/2022 Phone Visit Rheumatology Lorenza Black DO [address] [facility] N [address] (Wo rk) documented as of this encounter Visit Diagnoses Diagnosis Rheumatoid arthritis with negative rheum atoid factor, involving unspecified site (HRC) - Primary Encounter for long-term (current) use of medications Encounter for long-term (current) use of other medications documented in this encounter Care Teams Group Burner Machine Relationship Specialty Start Date End Date Flo Mckeon MD PCP - General 06/21/211999 [place] [address] documented as of this encounter
--- OUTSIDE RECORDS SUMMARY | 2022-08-19 08:42 | XMS_ITS | Encounter Summary ---
:1945 Author Organization [facility] Address [address] [place] [address] Care Team Providers Name Role Phone Unassigned, Provider Primary Care Provider Unavailable Encounter Details Date Type Department Care Team Description 10/13/1989 PN Conversion Only [facility] [address] [place] [address] Social History Tobacco Use Types Packs/Day Years Used Date Smoking Tobacco: Never Assessed Sex Assigned at Date Recorded Not on file documented as of this encounter Plan of Treatment Upcoming Encounters Date Type Specialty Care Team Description 08/19/2022 Phone Visit Rheumatology Black, Lorenza Hernández, DO [address] [facility], N [id number] (Wo rk) documented as of this encounter Visit Diagnoses Not on filedocumented in this encounter Care Teams Casting And Pasting Supervisor Relationship Specialty Start Date End Date Unassigned, Provider PCP - General 07/16/00 06/20/[address] [place] [address] documented as of this encounter
--- OUTSIDE RECORDS SUMMARY | 2022-08-19 08:42 | XMS_ITS | Clinical Summary ---
:1945 Author Organization [employer] Address [address] [place] [address] Care Team Providers Name Role Phone Flo [...] for each transition of care or referral. [facility] Medications Medication Sig Dispensed Refills Start Date [...] tablet needed pseudoephedrine Daily 0 Acti ve ([id number]) 120 MG 12 hour release tablet calcium [...] 08/19/2022 Phone Visit Rheumatology Lorenza Black DO [address] [address] (Wo rk) Health Maintenance Due Date Last [...] Addre ss Type Group [employer]ETNA [employer] [id number] 2019-Present [phone] [address] Medicare MEDICARE 2 [place], [facility] [address] Pedrito, Personal/Family Self 1945 [address] [facility] (Home) [place] [address] Care Teams Manager Gaming Relationship Specialty Start Date End Date Flo Mckeon MD PCP - General 06/21/211999 [place] [address]
--- OUTSIDE RECORDS SUMMARY | 2022-08-19 08:42 | XMS_ITS | Encounter Summary ---
:1945 Author Organization [employer] Address [address], [place] [address] Care Team Providers Name Role Phone Flo Mckeon MD Primary Care Provider Reason for Visit Reason Comments Refill Encounter Details Date Type Department Care Team Description 12/12/[address] [facility] 38[address] Lorenza Black, DO Refill Rheumatology [address] [place] [address] [place] [address] [phone] Social History Tobacco Use Types Packs/Day Years Used Date Smoking Tobacco: Never Assessed Sex Assigned at Date Recorded Not on file documented as of this encounter Nursing Notes Akiko Vega LPN - 12/12/2021 12:22 PM CST Left message informing patient. RVISOR PACKING Mercy Roman PA-C - 12/12/2021 12:18 PM [...] with Dr. Black as soon as possible. RVISOR PACKING documented in this encounter Plan of Treatment Upcoming Encounters Date Type Specialty Care Team Description 08/19/2022 Phone Visit Rheumatology Sofia, Lorenza Hernández, DO [address] [facility] [place] [address] (Wo rk) documented as of this encounter Visit Diagnoses Not on filedocumented in this encounter Care Teams Director Digital Relationship Specialty Start Date End Date Flo Mckeon MD PCP - General 06/21/211999 [place] [address] documented as of this encounter
== END 2022-08-19 08:38 | disposition home or self-care (01) ==
PROVIDERS: PCP Family Medicine; Visit Provider Nurse Practitioner Family
DX: M86.68 Other chronic osteomyelitis, other site (principal); L89.314 Pressure ulcer of right buttock, stage 4; I87.2 Venous insufficiency (chronic) (peripheral); Q82.0 Hereditary lymphedema; Z99.3 Dependence on wheelchair
CPT/HCPCS: 11042; 97605; G0277

== ENCOUNTER 2022-08-26 08:49 | Outpatient (CLI) | payer OTHER, SELFPAY ==
--- OUTSIDE RECORDS SUMMARY | 2022-08-26 08:51 | XMS_ITS | Encounter Summary ---
:1945 Author Organization [facility] Address [address] [place] [address] Care Team Providers Name Role Phone Unassigned, Provider Primary Care Provider Unavailable Encounter Details Date Type Department Care Team Description 10/13/1989 PN Conversion Only [employer] 38[address] [place] [address] Social History Tobacco Use Types Packs/Day Years Used Date Smoking Tobacco: Never Assessed Sex Assigned at Date Recorded Not on file documented as of this encounter Plan of Treatment Not on filedocumented as of this encounter Visit Diagnoses Not on filedocumented in this encounter Care Teams Petroleum Transport Driver Relationship Specialty Start Date End Date Unassigned, Provider PCP - General 07/16/00 06/20/21 [address] [place] [address] documented as of this encounter
--- OUTSIDE RECORDS SUMMARY | 2022-08-26 08:51 | XMS_ITS | Encounter Summary ---
:1945 Author Organization [facility] Address [address], [place] [address] Care Team Providers Name Role Phone Flo Mckeon MD Primary Care Provider Encounter Details Date Type Department Care Team Description 08/19/[address] [facility] 38[address] Lorenza Black DO Rheumatoid arthritis with negative rheum atoid factor, involving unspecified site (HRC) (Primary Dx); Rheumatology [address] [place] [address] Encounter for long-term (cur rent) use of medications [address] [place] [address] [place] [address] [phone] Social History Tobacco Use Types Packs/Day Years Used Date Smoking Tobacco: Never Assessed Sex Assigned at Date Recorded Not on file documented as of this encounter Progress Notes Lorenza Black DO - 08/19/2022 3:30 PM CST Rheumatology Follow Up 08/19/2022 Follow Up RA Rheum History: We first met Ms Major in Jun 2021 with complaints of RA. She was diagnosed in 2003. She had previously been on MTX, infliximab and prednisone. When we met her, her wrist was quite swollen and we restarted MTX. She was then lost to follow up for a year after dealing with osteomyelitis and sepsis. Current Treatment: nothing Interval History: Since we last saw the patient a year ago, she has been lost to follow-up secondary to chronic medical conditions. Since our last visit she was hospitalized for several months for osteomyelitis and sepsis. She is still taking oral antibiotics. Her care team currently suspects that her difficulty with wound healing of pressure ulcer is secondary to untreated rheumatoid arthritis. They requested that she reestablish with us to discuss next options. The patient is more last bed bound. She has chronic pressure ulcers of the sacrum and coccyx. She has difficulty traveling in from [facility] to anyone of our clinics. The patient has stopped taking her methotrexate. She has not been taking that for the past few months. She states that it did not really do much for rheumatoid arthritis and it caused a lot of her hairto fall out. At her last visit with us almost a year ago, we had discussed different options outside of methotrexate. Because she was still having continued active disease even then, we had talked about using infusion therapy such as Orencia rituximab. Due to the distance of which she lived the patient prefer to use rituximab. We even got a prior authorization approval for rituximab before she was lost to follow-up. Exam This is a phone visit Assessment and Plan 76 y.o. female here for follow up of rheumatoid arthritis - seronegative - chronically on pred 10 since 2003 -still active based on patient report -currently very bed bound with pressure ulcers and recent history of osteomyelitis 1) rheumatoid arthritis - I think that the patient is in a tough spot. She is not very mobile and she loves a further distance away from us. As result, I think infusion therapy still is the best plan for her. -I would like for her to start rituximab -I will refrain from MTX for now given the hair loss. Its just hard when I cannot evaluate the patient in person. I would be open to starting LEF in the future -I will see if we can get orders sent over to [facility] to have her get the rituximab there instead of at our [facility] location. This will aid her with transportation issues -I would like to have the patient follow-up with 1 of our rheumatologists in about 2 months after starting the rituximab for reassessment Total time was greater than 30 min with greater than 70 % for counseling and coordination of care (discussion with bedside nursing, patient counseling, discussion with care management, review of pertinent labs or studies, and medical records). This phone visit was provided via telemedicine using interactive, secure video conferencing. The consult began at 3:30 and ended at 4 on Aug 19, 2022. Based on a discussion with the referring provider and a review of the patient's medical chart, it was determined that telemedicine was an appropriate and effective means for delivering care to this patient. The patient is located at home in the state [facility]. The consulting provider is located in [place], [place]. OSITOR APPRENTICE documented in this encounter Plan of Treatment Not on filedocumented as of this encounter Visit Diagnoses Diagnosis Rheumatoid arthritis with negative rheum atoid factor, involving unspecified site (HRC) - Primary Encounter for long-term (current) use of medications Encounter for long-term (current) use of other medications documented in this encounter Care Teams Early Breastfeeding Care Specialist Relationship Specialty Start Date End Date Flo Mckeon MD PCP - General 06/21/211999 [place] [address] documented as of this encounter
--- OUTSIDE RECORDS SUMMARY | 2022-08-26 08:51 | XMS_ITS | Encounter Summary ---
:1945 Author Organization [facility] Address [address], [place] [address] Care Team Providers Name Role Phone Flo Mckeon MD Primary Care Provider Reason for Visit Reason Comments LAB RESULTS Encounter Details Date Type Department Care Team Description 07/02/2021 Telephone [facility] 3800 Lorenza Black DO LAB RESULTS Rheumatology [address] [address] [place] [address] [phone] Social History Tobacco Use Types Packs/Day Years [...] medications documented in this encounter Care Teams Policy Change Clerk Relationship Specialty Start Date End Date Flo Mckeon MD PCP - General 06/21/211999 [place] [address] documented as of this encounter
--- OUTSIDE RECORDS SUMMARY | 2022-08-26 08:51 | XMS_ITS | Clinical Summary ---
:1945 Author Organization [facility] Address [address] [address] Care Team Providers Name Role Phone Flo [...] for each transition of care or referral. [employer] Medications Medication Sig Dispensed Refills Start Date [...] tablet needed pseudoephedrine Daily 0 Acti ve ([id number]) 120 MG 12 hour release tablet calcium [...] Encounters Date Type Specialty Care Team Description 08/20/2022 Notes/Orders Rheumatology Lorenza Black DO 08/19/2022 Phone Visit Rheumatology Lorenza Black DO Rheumatoid a rthritis with negative rheumatoid factor, involving unspecified site (HRC) (Primary Dx); Encounter for l sharmila-term (current) use of medications 06/13/2022 Refill Rheumatology Lorenza Black DO Refill [...] Addre ss Type Group AETNA A[employer]NA [employer] [id number] 2019-Present [phone] [address] Medicare MEDICARE 2 [place], [place] [employer] [address] Pedrito Personal/Family Self 1945 [address] [facility] (Home) [place] [address] Care Teams Server Service Assistant Relationship Specialty Start Date End Date Flo Mckeon MD PCP - General 06/21/211999 [place], [place] [address]
--- OUTSIDE RECORDS SUMMARY | 2022-08-26 08:51 | XMS_ITS | Encounter Summary ---
:1945 Author Organization [facility] Address [address], [place] [address] Care Team Providers Name Role Phone Flo Mckeon MD Primary Care Provider Reason for Visit Reason Comments Phone Visit Follow-up Encounter Details Date Type Department Care Team Description 09/13/2021 Phone Visit SavannahLorenza Gamboa DO Rheumatoid arthritis, Rheumatology [address] [facility] involving unspecified [address] [facility] site, unspecified [place], [place] [address] [place] [address] whether rheumatoid [phone] factor present (HRC) [phone] (Wo rk) (Primary Dx) Social History Tobacco Use Types Packs/Day Years Used Date Smoking Tobacco: Never Assessed Sex Assigned at Date Recorded Not on file documented as of this encounter Progress Notes Lorenza Black DO - 09/13/2021 2:45 PM CST Error CILPERSON documented in this encounter Plan of Treatment Not on filedocumented as of this encounter Visit Diagnoses Diagnosis Rheumatoid arthritis, involving unspecif ied site, unspecified whether rheumatoid factor present (HRC) - Primary documented in this encounter Care Teams Assignment Officer Relationship Specialty Start Date End Date Flo Mckeon MD PCP - General 06/21/211999 [place] [address] documented as of this encounter
--- OUTSIDE RECORDS SUMMARY | 2022-08-26 08:51 | XMS_ITS | Encounter Summary ---
:1945 Author Organization [employer] Address [address] [place] [address] Care Team Providers Name Role Phone Flo Mckeon MD Primary Care Provider Encounter Details Date Type Department Care Team Description 06/28/2021 Lab Visit [facility] Rheumatoid arthritis [address] [employer]([address]) [place] [address] with positive rheumatoid [phone] factor (HRC) Social History Tobacco Use Types [...] P athologist Signature MITOGEN >10.000 IU/mL 07/02/2021 [facility] 8:53 AM CDT LABORATORY Specimen Anatomical Collection Method / Collection Time Recei giselle Time (Source) Location / Volume Laterality Blood Venipuncture / 06/28/2021 2:28 06/28/2021 2:28 Unknown PM CDT PM [facility]T [facility] Performing Organization Address [facility] Phon e Number [facility] [address] [place] [address] TB QuantiFERON Gold Plus TB2 (06/28/2021 2:28 PM CDT) athologist Signature TB2 0.081 IU/mL 07/02/2021 [facility] 8:53 AM CDT LABORATORY Specimen Anatomical Collection Method / Collection Time Recei giselle Time (Source) Location / Volume Laterality Blood Venipuncture / 06/28/2021 2:28 06/28/2021 2:28 Unknown PM CDT PM CDT [facility] LAB_1 Performing Organization Address City/[facility] Phon e Number [facility] [address] [place] [address] TB QuantiFERON Gold Plus TB1 (06/28/2021 2:28 PM CDT) athologist Signature TB1 0.094 IU/mL 07/02/2021 [facility] 8:54 AM CDT LABORATORY Specimen Anatomical Collection Method / Collection Time Recei giselle Time (Source) Location / Volume Laterality Blood Venipuncture / 06/28/2021 2:28 06/28/2021 2:28 Unknown PM CDT PM CDT [facility] DO LAB_1 Performing Organization Address City/[facility] Phon e Number [facility] [address] [place] [address] TB QuantiFERON Gold Plus NIL (06/28/2021 2:28 PM CDT) [facility] Method Time Signature 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] Organization Address City/State/ZIP Code Phon e Number [facility] [address] [place] [address] (ABNORMAL) Complete Blood Count-W/Diff (06/28/2021 2:28 PM CDT) [facility] Method Time Signature WBC 12.1 (H) 3.5 - 10.5 06/28/2021 [place] x10(9)/L 2:44 PM CDT LABORATORY RBC 5.26 (H) 3.90 - 06/28/2021 [place] 5.03 2:44 PM CDT LABORATORY x10(12)/L Hemoglobin 15.2 12.0 - 06/28/2021 [place] 15.5 g/dL 2:44 PM CDT LABORATORY HCT 48.5 (H) 34.9 - 06/28/2021 [place] 44.5 % 2:44 PM CDT LABORATORY MCV 92.2 80.0 - 06/28/2021 [place] 100.0 fL 2:44 PM CDT LABORATORY MCH 28.9 27.6 - 06/28/2021 [place] 33.3 pg 2:44 PM CDT LABORATORY MCHC 31.3 (L) 31.5 - 06/28/2021 [place] 35.2 g/dL 2:44 PM CDT LABORATORY RDW 13.8 11.9 - 06/28/2021 [place] 15.5 % 2:44 PM CDT LABORATORY Platelets 307 150 - 450 06/28/2021 [place] x10(9)/L 2:44 PM CDT LABORATORY Automated NRBC 0 <=0 /100 06/28/2021 [place] WBC 2:44 PM CDT LABORATORY Neutrophil 10.8 (H) 1.7 - 7.0 06/28/2021 [place] Absolute 10(9)/L 2:44 PM CDT LABORATORY Lymphocyte 0.9 (L) 1.0 - 4.8 06/28/2021 [place] Absolute 10(9)/L 2:44 PM CDT LABORATORY Monocytes 0.3 0.2 - 0.9 06/28/2021 [place] Absolute 10(9)/L 2:44 PM CDT LABORATORY Eosinophil 0.0 0.0 - 0.5 06/28/2021 [place] Absolute 10(9)/L 2:44 PM CDT LABORATORY Basophil 0.0 0.0 - 0.3 06/28/2021 [place] Absolute 10(9)/L 2:44 PM CDT LABORATORY Immature Gran % 0.7 (H) 0.0 - 0.5 06/28/2021 [place] % 2:44 PM CDT LABORATORY Specimen Anatomical Collection Method / Collection Time Recei giselle Time (Source) Location / Volume Laterality Blood Venipuncture / 06/28/2021 2:28 06/28/2021 2:28 Unknown PM CDT PM CDT [employer] DO LAB_1 Performing Organization Address City/State/ZIP Code Phon e Number [facility] [address] [place] [address] Rheumatoid Factor, Quant (06/28/2021 2:27 PM CDT) Analysis Performed At [facility] logist Time Signature Rheumatoid <15 <=30 IU/mL 06/28/2021 [facility] Factor, 7:52 PM CDT LABORATORY Quantitative Specimen Anatomical Collection Method / Collection Time Recei giselle Time (Source) Location / Volume Laterality Blood Venipuncture / 06/28/2021 2:27 06/28/2021 2:28 Unknown PM CDT PM CDT [employer] DO LAB_1 Performing Organization Address City/State/ZIP Code Phon e Number [facility] [address] [place] [address] Anti-CCP Antibody (06/28/2021 2:27 PM CDT) [facility] g[facility] Method Time Signature Anti-CCP Antibody 1 <7 U/mL 06/29/2021 [facility] 1:16 PM CDT CENTRAL LAB Anti-CCP Antibody Negative Negative 06/29/2021 [facility] Interpretation 1:16 PM CDT CENTRAL LAB Specimen Anatomical Collection Method / Collection Time Recei giselle Time (Source) Location / Volume Laterality Blood Venipuncture / 06/28/2021 2:27 06/28/2021 2:28 Unknown PM CDT PM CDT Lorenza Buttono DO LAB_1 Performing Organization Address City/[facility]/ZIP Code Phon e Number [facility] CENTRAL LAB [address] [address] Hepatitis B Surface Antigen (06/28/2021 2:27 PM CDT) [facility] Method Time Signature Hepatitis B Negative Negative 06/28/2021 [facility] Surface (Non (Non 8:12 PM CDT LABORATORY Antigen Reactive) Reactive) Specimen Anatomical Collection Method / Collection Time Recei giselle Time (Source) Location / Volume Laterality Blood Venipuncture / 06/28/2021 2:27 06/28/2021 2:28 Unknown PM CDT PM CDT [facility] [employer] DO LAB_1 Performing Organization Address City/[facility] Code Phon e Number [facility] [address] [place] [address] HIV 1/2 Ag/Ab 4th Generation (06/28/2021 2:27 PM CDT) [facility] Method Time Signature HIV 1/2 Negative Negative 06/28/2021 [facility] Antigen/Antib (Non (Non 7:52 PM CDT LABORATORY zachary (4th Reactive) Reactive) generation) Comment: HIV-1 p24 Antigen and HIV-1/HIV -2 Antibody not detected Specimen Anatomical Collection Method / Collection Time Recei giselle Time (Source) Location / Volume Laterality Blood Venipuncture / 06/28/2021 2:27 06/28/2021 2:28 Unknown PM CDT PM CDT Lorenza Buttono DO LAB_1 Performing Organization Address City/[facility]/ZIP Code Phon e Number [facility] [address] [place] [address] Hepatitis C Antibody, with Reflex (06/28/2021 2:27 PM CDT) [facility] g[facility] Method Time Signature Hepatitis C Negative Negative 06/28/2021 [facility] Antibody (Non (Non 7:52 PM CDT LABORATORY Reactive) Reactive) Comment: Antibodies to HCV not detected. Does not exclude the possiblity of exposure to HCV. Specimen Anatomical Collection Method / Collection Time Recei giselle Time (Source) Location / Volume Laterality Blood Venipuncture / 06/28/2021 2:27 06/28/2021 2:28 Unknown PM CDT PM CDT [facility] Q Black DO LAB_1 Performing Organization Address City/[facility] Phon e Number [facility] [address] [place] [address] Liver Panel(Hepatic Function Panel) (06/28/2021 2:27 PM CDT) athologist [facility] Alkaline 70 40 - 150 06/28/2021 [place] Phosphatase U/L 5:11 PM CDT LABORATORY Bilirubin, Total 0.5 0.2 - 1.2 06/28/2021 [place] mg/dL 5:11 PM CDT LABORATORY Bilirubin, 0.2 0.0 - 0.5 06/28/2021 [place] Direct mg/dL 5:11 PM CDT LABORATORY AST (SGOT) 18 10 - 40 06/28/2021 [place] U/L 5:11 PM CDT LABORATORY ALT (SGPT) 21 0 - 55 U/L 06/28/2021 [place] 5:11 PM CDT LABORATORY Protein, Total 6.5 6.4 - 8.3 06/28/2021 [place] g/dL 5:11 PM CDT LABORATORY Albumin 3.9 3.5 - 5.0 06/28/2021 [place] g/dL 5:11 PM CDT LABORATORY Specimen Anatomical Collection Method / Collection Time Recei giselle Time (Source) Location / Volume Laterality Blood Venipuncture / 06/28/2021 2:27 06/28/2021 2:28 Unknown PM CDT PM CDT Lorenza Buttono DO LAB_1 Performing Organization Address City/[facility] Phon e Number [facility] [address] [place] [address] (ABNORMAL) Creatinine / GFR (06/28/2021 2:27 PM CDT) [facility] gist Method Time Signature Creatinine 0.40 (L) 0.55 - 06/28/2021 [place] 1.02 mg/dL 5:11 PM CDT LABORATORY GFR, Estimated >60 >60 06/28/2021 [place] mL/min/1.7 5:11 PM CDT LABORATORY 3m2 Specimen Anatomical Collection Method / Collection Time Recei giselle Time (Source) Location / Volume Laterality Blood Venipuncture / 06/28/2021 2:27 06/28/2021 2:28 Unknown PM CDT PM CDT Lorenza Q Black DO LAB_1 Performing Organization Address City/State/ZIP Code Phon e Number [facility] [address] [place] [address] documented in this encounter Visit Diagnoses Diagnosis 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) documented in this encounter Care Teams Property Technician Relationship Specialty Start Date End Date Flo Mckeon MD PCP - General 06/21/211999 [place] [address] documented as of this encounter
--- OUTSIDE RECORDS SUMMARY | 2022-08-26 08:51 | XMS_ITS | Encounter Summary ---
:1945 Author Organization [email or web address] Address [address] [place] [address] Care Team Providers Name Role Phone Flo Mckeon MD Primary Care Provider Reason for Referral Procedure/Equipment (Routine) - Incomplete Specialty Diagnoses / Procedures Referred By Contact Refer red To Contact Diagnoses 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) Lorenza Black DO Procedures XR Shoulder Rt 2+ Views [address] [place], [place] [address] Referral ID Status Reason Start Date Expiration Date Visits V isits Requested Authorized [id number] Incomplete 06/28/2021 09/27/2022 1 1 Procedure/Equipment (Routine) - Incomplete Specialty Diagnoses / Procedures Referred By Contact Refer red To Contact Diagnoses 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) Lorenza Black DO Procedures XR Hands 1 View Bilat Arthritis [address] [place], [place] [address] Referral ID Status Reason Start Date Expiration Date Visits V isits Requested Authorized [id number] Incomplete 06/28/2021 09/27/2022 1 1 Reason for Visit Reason Comments CONSULT Encounter Details Date Type Department Care Team Description 06/28/2021 Office Visit Lorenza Wolf DO 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) (Primary Dx); Rheumatology [address] [place] 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 She has been on prednisone 5 mg and then recently 10 mg [id number] Today the patient states that her hands [...] to 6/10. She laments the inability to picker her grandchildren. She has tried anti-inflammatories [...] smoked. 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 Exam Gen: NAD, [...] 65 minutes including, but not limited to, [id number] time spent reviewing records, counseling, and coordination [...] the ra diocarpal and multiple intercarpal joints. [facility] [employer] Black DO RAD GD XR Shoulder Rt [...] degenerative arthrosis of the AC joint. Lorenza Insmedo DO RAD GD Rheumatoid Factor, Quant (06/28/2021 2:27 PM CDT) Analysis Performed At [facility] logist Time Signature Rheumatoid <15 <=30 IU/mL 06/28/2021 [facility] Factor, 7:52 PM CDT LABORATORY Quantitative Specimen Anatomical Collection Method / Collection Time Recei giselle Time (Source) Location / Volume Laterality Blood Venipuncture / 06/28/2021 2:27 06/28/2021 2:28 Unknown PM CDT PM CDT Lorenza [employer] Black DO LAB_1 Performing Organization Address City/State/ZIP Code Phon e Number [facility] [address] [place] [address] Anti-CCP Antibody (06/28/2021 2:27 PM CDT) [facility] Method Time Signature Anti-CCP Antibody 1 <7 U/mL 06/29/2021 [facility] 1:16 PM CDT CENTRAL LAB Anti-CCP Antibody Negative Negative [facility]/29/2021 [facility] Interpretation 1:16 PM CDT CEN[facility]AL LAB Specimen Anatomical Collection Method / Collection Time Recei giselle Time (Source) Location / Volume Laterality Blood Venipuncture / 06/28/2021 2:27 06/28/2021 2:28 Unknown PM CDT PM CDT [employer] DO LAB_1 Performing Organization Address City/[facility]/ZIP Code Phon e Number [facility] CENTRAL LAB [address] [address] Hepatitis B Surface Antigen (06/28/2021 2:27 PM CDT) [facility] Method Time Signature Hepatitis B Negative Negative 06/28/2021 [facility] Surface (Non (Non 8:12 PM CDT LABORATORY Antigen Reactive) Reactive) Specimen Anatomical Collection Method / Collection Time Recei giselle Time (Source) Location / Volume Laterality Blood Venipuncture / 06/28/2021 2:27 06/28/2021 2:28 Unknown PM CDT PM CDT [employer] DO LAB_1 Performing Organization Address [facility]/ZIP Code Phon e Number [facility] [address] [place] [address] HIV 1/2 Ag/Ab 4th Generation (06/28/2021 2:27 PM CDT) [facility] Method Time Signature HIV 1/2 Negative Negative 06/28/2021 [facility] Antigen/Antib (Non (Non 7:52 PM CDT LABORATORY zachary (4th Reactive) Reactive) generation) Comment: HIV-1 p24 Antigen and HIV-1/HIV -2 Antibody not detected Specimen Anatomical Collection Method / Collection Time Recei giselle Time (Source) Location / Volume Laterality Blood Venipuncture / 06/28/2021 2:27 06/28/2021 2:28 Unknown PM CDT PM CDT [employer] DO LAB_1 Performing Organization Address City/[facility]/ZIP Code Phon e Number [facility] [address] [place] [address] Hepatitis C Antibody, with Reflex (06/28/2021 2:27 PM CDT) [facility] g[facility] Method Time Signature Hepatitis C Negative Negative 06/28/2021 [facility] Antibody (Non (Non 7:52 PM CDT LABORATORY Reactive) Reactive) Comment: Antibodies to HCV not detected. Does not exclude the possiblity of exposure to HCV. Specimen Anatomical Collection Method / Collection Time Recei giselle Time (Source) Location / Volume Laterality Blood Venipuncture / 06/28/2021 2:27 06/28/2021 2:28 Unknown PM CDT PM CDT Lorenza [employer] DO LAB_1 Performing Organization Address [facility] Phon e Number [facility] [address] [place] [address] Liver Panel(Hepatic Function Panel) (06/28/2021 2:27 PM CDT) athologist [facility] Alkaline 70 40 - 150 06/28/2021 [facility] Phosphatase U/L 5:11 PM CDT LABORATORY Bilirubin, Total 0.5 0.2 - 1.2 06/28/2021 [place] mg/dL 5:11 PM CDT LABORATORY Bilirubin, 0.2 0.0 - 0.5 06/28/2021 [facility] Direct mg/dL 5:11 PM CDT LABORATORY AST (SGOT) 18 10 - 40 06/28/2021 [facility] U/L 5:11 PM CDT LABORATORY ALT (SGPT) 21 0 - 55 U/L 06/28/2021 [facility] 5:11 PM CDT LABORATORY Protein, Total 6.5 6.4 - 8.3 06/28/2021 [place] g/dL 5:11 PM CDT LABORATORY Albumin 3.9 3.5 - 5.0 06/28/2021 [facility] g/dL 5:11 PM CDT LABORATORY Specimen Anatomical Collection Method / Collection Time Recei giselle Time (Source) Location / Volume Laterality Blood Venipuncture / 06/28/2021 2:27 06/28/2021 2:28 Unknown PM CDT PM CDT Lorenza Insmedo DO LAB_1 Performing Organization Address City/[facility]/ZIP Code Phon e Number [facility] [address] [place] [address] (ABNORMAL) Creatinine / GFR (06/28/2021 2:27 PM CDT) [facility] gist Method Time Signature Creatinine 0.40 (L) 0.55 - 06/28/2021 [facility] 1.02 mg/dL 5:11 PM CDT LABORATORY GFR, Estimated >60 >60 06/28/2021 [facility] mL/min/1.7 5:11 PM CDT LABORATORY 3m2 Specimen Anatomical Collection Method / Collection Time Recei giselle Time (Source) Location / Volume Laterality Blood Venipuncture / 06/28/2021 2:27 06/28/2021 2:28 Unknown PM CDT PM CDT Lorenza Q Black DO LAB_1 Performing Organization Address City/State/ZIP Code Phon e Number [facility] [address] [place] [address] documented in this encounter Visit Diagnoses Diagnosis 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) - Primary Other secondary osteoarthritis of both h ands Chronic right shoulder pain Pain in joint, shoulder region 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) 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) documented in this encounter Care Teams Clear Coat Sprayer Relationship Specialty Start Date End Date Flo Mckeon MD PCP - General 06/21/211999 [place] [address] documented as of this encounter
--- OUTSIDE RECORDS SUMMARY | 2022-08-26 08:51 | XMS_ITS | Encounter Summary ---
:1945 Author Organization [facility] Address [address] [place] [address] Care Team Providers Name Role Phone Flo Mckeon MD Primary Care Provider Reason for Visit Procedure/Equipment (Routine) - Incomplete Specialty Diagnoses / Procedures Referred By Contact Refer red To Contact Diagnoses 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) Black, Lorenza Q, DO Procedures XR Hands 1 View Bilat Arthritis [address] [place], [place] [address] Referral ID Status Reason Start Date Expiration Date Visits V isits Requested Authorized [id number] Incomplete 06/28/2021 09/27/2022 1 1 Encounter Details Date Type Department Care Team Description 06/28/2021 [facility] Black, Lorenza Q, DO Rheumatoid arthritis Procedure Radiology [address] [place] involving multiple [address] [facility] sites with positive Drive [place], [place] [address] (HRC) [id number] Social History Tobacco Use Types Packs/Day Years [...] multiple intercarpal joints. Lorenza Q Black DO [facility] documented in this encounter Visit Diagnoses Diagnosis 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) documented in this encounter Care Teams Digital Imager Relationship Specialty Start Date End Date Flo Mckeon MD PCP - General 06/21/211999 [place] [address] documented as of this encounter
--- OUTSIDE RECORDS SUMMARY | 2022-08-26 08:51 | XMS_ITS | Clinical Summary ---
:1945 Author Organization [employer] [place] [address] Care Team Providers Name Role Phone Kallie Tamayo FLOOR REFINISHER Unavailable [facility] [place] Unavailable Flo Mckeon MD Primary Care Provider [...] Addre ss Type Group MEDICARE PPS MEDICARE [id number] 2011-Presen [address] [place] [address] [facility] [id number] 2019-Presen [address] [place] [address] Josh Major Personal/Famil Self 1945 [address] [facility] vance J y (Home) [place], [place] [phone] [address] (Work) Care Teams Batch Plant Supervisor Relationship Specialty Start Date End Date Flo Mckeon MD PCP - General Family Practice 10/04/211999 [place] [address] Kallie Tamayo, FROILAN Family [facility] 01/17/[address] [id number] [facility], [facility] [place] 01/29/14
--- OUTSIDE RECORDS SUMMARY | 2022-08-26 08:51 | XMS_ITS | Encounter Summary ---
:1945 Author Organization [employer] Address [address], [place] [address] Care Team Providers Name Role Phone Flo Mckeon MD Primary Care Provider Reason for Visit Reason Comments Phone Visit Follow-up Encounter Details Date Type Department Care Team Description 07/31/2021 Phone Visit Guadalupe Lorenza Black DO Rheumatoid arthritis with negative rheum atoid factor, involving unspecified site (HRC) (Primary Dx); Rheumatology [address] [place] [address] Encounter for long-term (cur rent) use of medications [address] [place] [address] [place], [place] [phone] [address] (Wo rk) Social History Tobacco Use Types [...] The patient is located at Home in [facility]. The consulting provider is located in [place], [place]. documented in this encounter Plan of Treatment Not on filedocumented as of this encounter Visit Diagnoses Diagnosis Rheumatoid arthritis with negative rheum atoid factor, involving unspecified site (HRC) - Primary Encounter for long-term (current) use of medications Encounter for long-term (current) use of other medications documented in this encounter Care Teams Health Services Administrator Relationship Specialty Start Date End Date Flo Mckeon MD PCP - General 06/21/211999 [place] [address] documented as of this encounter
--- OUTSIDE RECORDS SUMMARY | 2022-08-26 08:51 | XMS_ITS | Encounter Summary ---
:1945 Author Organization [facility] Address [address], [place] [address] Care Team Providers Name Role Phone Flo Mckeon MD Primary Care Provider Encounter Details Date Type Department Care Team Description 08/20/2022 Notes/Orders [facility] [address] BlackLorenza Q, DO Rheumatology [address] [place] [address] [place] [address] [phone] Social History Tobacco Use Types Packs/Day Years Used Date Smoking Tobacco: Never Assessed Sex Assigned at Date Recorded Not on file documented as of this encounter Progress Notes Akiko Vega LPN - 08/20/2022 11:12 AM CST Infusion order faxed to [facility]. [phone] HICS SOFTWARE ENGINEER documented in this encounter Plan of Treatment Not on filedocumented as of this encounter Visit Diagnoses Not on filedocumented in this encounter Care Teams Mobility Architect Manager Relationship Specialty Start Date End Date Flo Mckeon MD PCP - General 06/21/211999 [place] [address] documented as of this encounter
--- OUTSIDE RECORDS SUMMARY | 2022-08-26 08:51 | XMS_ITS | Encounter Summary ---
:1945 Author Organization [employer] Address [address] [place] [address] Care Team Providers Name Role Phone Flo Mckeon MD Primary Care Provider Reason for Visit Procedure/Equipment (Routine) - Incomplete Specialty Diagnoses / Procedures Referred By Contact Refer red To Contact Diagnoses 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) BlackChayah Q, DO Procedures XR Shoulder Rt 2+ Views [address] [place], [place] [address] Referral ID Status Reason Start Date Expiration Date Visits V isits Requested Authorized [id number] Incomplete 06/28/2021 09/27/2022 1 1 Encounter Details Date Type Department Care Team Description 06/28/2021 Ancillary Eldred Black Lorenza Q, DO Rheumatoid arthritis Procedure Radiology [address] involving multiple [address] [facility] sites with positive Drive [place], [place] [address] (HRC) [id number] Social History Tobacco Use Types Packs/Day Years [...] (HRC) documented in this encounter Care Teams Lawyer Real Estate Relationship Specialty Start Date End Date Flo Mckeon MD PCP - General 06/21/211999 [place] [address] documented as of this encounter
--- OUTSIDE RECORDS SUMMARY | 2022-08-26 08:51 | XMS_ITS | Encounter Summary ---
:1945 Author Organization [facility] Address [address] [place] [address] Care Team Providers Name Role Phone Flo Mckeon MD Primary Care Provider Reason for Visit Reason Comments Refill Encounter Details Date Type Department Care Team Description 06/13/2022 Refill [facility] [address], Lorenza Q, DO Refill Rheumatology [address] [place] [address] [place] [address] [phone] Social History Tobacco Use Types Packs/Day Years [...] medications documented in this encounter Care Teams Repairer Pump Relationship Specialty Start Date End Date Flo Mckeon MD PCP - General 06/21/211999 [place] [address] documented as of this encounter
--- OUTSIDE RECORDS SUMMARY | 2022-08-26 08:51 | XMS_ITS | Encounter Summary ---
:1945 Author Organization [employer] Address [address], [place] [address] Care Team Providers Name Role Phone Flo Mckeon MD Primary Care Provider Reason for Visit Reason Comments Refill Encounter Details Date Type Department Care Team Description 12/12/2021 Refill [facility] [address] Lorenza Black, Refill Rheumatology [address] [place] [address] [place] [address] [phone] Social History Tobacco Use Types Packs/Day Years Used Date Smoking Tobacco: Never Assessed Sex Assigned at Date Recorded Not on file documented as of this encounter Nursing Notes Akiko Vega LPN - 12/12/2021 12:22 PM CST Left message informing patient. GE AGENT Mercy Roman PA-C - 12/12/2021 12:18 PM [...] with Dr. Black as soon as possible. GE AGENT documented in this encounter Plan of Treatment Not on filedocumented as of this encounter Visit Diagnoses Not on filedocumented in this encounter Care Teams Porcelain Finisher Relationship Specialty Start Date End Date Flo Mckeon MD PCP - General 06/21/211999 [place] [address] documented as of this encounter
== END 2022-08-26 08:50 | disposition home or self-care (01) ==
LOC: WOUND 08:50
PROVIDERS: PCP Family Medicine; Visit Provider Nurse Practitioner Family
DX: M86.68 Other chronic osteomyelitis, other site (principal); L89.314 Pressure ulcer of right buttock, stage 4
CPT/HCPCS: 11042; G0277

== ENCOUNTER 2022-09-02 08:49 | Outpatient (CLI) | payer OTHER, SELFPAY ==
--- OUTSIDE RECORDS SUMMARY | 2022-09-02 08:55 | XMS_ITS | Encounter Summary ---
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 [address] [phone] Social History Tobacco Use Types Packs/Day Years [...] coccyx. She has difficulty traveling in from [facility] to anyone of our clinics. The patient [...] we can get orders sent over to [facility] to have her get the rituximab there instead of at our [facility] location. This will aid her with transportation [...] is located at home in the state [facility]. The consulting provider is located in [place], [place]. 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
--- OUTSIDE RECORDS SUMMARY | 2022-09-02 08:55 | XMS_ITS | Encounter Summary ---
:1945 Author Organization [email or web address] Address [address], [place] [address] Care Team Providers Name Role Phone Flo Mckeon MD Primary Care Provider Reason for Visit Reason Comments Refill Encounter Details Date Type Department Care Team Description 12/12/2021 Refill [facility] [address] Lorenza Black, Refill Rheumatology [address] [place] [address] [place] [address] [phone] Social History Tobacco Use Types Packs/Day Years Used Date Smoking Tobacco: Never Assessed Sex Assigned at Date Recorded Not on file documented as of this encounter Nursing Notes Akiko Vega LPN - 12/12/2021 12:22 PM CST Left message informing patient. Mercy Roman PA-C - 12/12/2021 12:18 PM [...] with Dr. Black as soon as possible. documented in this encounter Plan of Treatment Not on filedocumented as of this encounter Visit Diagnoses Not on filedocumented in this encounter Care Teams Dental Equipment Installer And Servicer Relationship Specialty Start Date End Date Flo Mckeon MD PCP - General 06/21/211999 [place] [address] documented as of this encounter
--- OUTSIDE RECORDS SUMMARY | 2022-09-02 08:55 | XMS_ITS | Clinical Summary ---
:1945 Author Organization [employer] [place] [address] Care Team Providers Name Role Phone Kallie Tamayo DRUM SANDER SETTER Unavailable [facility], [facility] Unavailable Flo Mckeon MD Primary Care [...] Addre ss Type Group MEDICARE PPS MEDICARE [id number] 2011-Presen [address] [place] [address] [facility] [id number] 2019-Presen [address] [place] [address] Josh Major Personal/Famil Self 1945 [address] [facility] vance J y (Home) [place], [place] [phone] [address] (Work) Care Teams Control And Recovery Combat Rescue Relationship Specialty Start Date End Date Flo Mckeon MD PCP - General Family Practice 10/04/211999 [place] [address] Kallie Tamayo, FROILAN [facility] 01/17/[address] [id number] [facility], [facility] 01/29/14
--- OUTSIDE RECORDS SUMMARY | 2022-09-02 08:55 | XMS_ITS | Encounter Summary ---
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 The consulting provider is located in [place], [place]. 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
--- OUTSIDE RECORDS SUMMARY | 2022-09-02 08:55 | XMS_ITS | Encounter Summary ---
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) Lorenza Black DO Procedures XR Shoulder Rt 2+ Views [address] [place], [place] [address] Referral ID Status Reason Start Date Expiration Date Visits V isits Requested Authorized [id number] Incomplete 06/28/2021 09/27/2022 1 1 Procedure/Equipment (Routine) - Incomplete Specialty Diagnoses / Procedures Referred By Contact Refer red To Contact Diagnoses 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) Lorenza Black DO Procedures XR Hands 1 View Bilat Arthritis [address] [place], [place] [address] Referral ID Status Reason Start Date Expiration Date Visits V isits Requested Authorized [id number] Incomplete 06/28/2021 09/27/2022 1 1 Reason for Visit Reason Comments CONSULT Encounter Details Date Type Department Care Team Description 06/28/2021 Office Visit Lorenza Wolf DO 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 She has been on prednisone 5 mg and then recently 10 mg [id number] Today the patient states that her hands [...] to 6/10. 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 She has tried anti-inflammatories and [...] smoked. 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 Exam Gen: NAD, [...] 65 minutes including, but not limited to, ira-wgmj-oe-face time spent reviewing records, counseling, and coordination [...] the ra diocarpal and multiple intercarpal joints. [facility] Preisbock Black DO RAD GD XR Shoulder Rt [...] degenerative arthrosis of the AC joint. Lorenza [employer] DO RAD GD Rheumatoid Factor, Quant (06/28/2021 2:27 PM CDT) Analysis Performed At Patho logist Time Signature Rheumatoid <15 <=30 IU/mL 06/28/2021 [facility] Factor, 7:52 PM CDT LABORATORY Quantitative Specimen Anatomical Collection Method / Collection Time Recei giselle Time (Source) Location / Volume Laterality Blood Venipuncture / 06/28/2021 2:27 06/28/2021 2:28 Unknown PM CDT PM CDT Lorenza Preisbock Black DO LAB_1 Performing Organization Address City/State/ZIP Code Phon e Number [facility] [address] [place] [address] Anti-CCP Antibody (06/28/2021 2:27 PM CDT) [facility] Method Time Signature Anti-CCP Antibody 1 <7 U/mL 06/29/2021 [facility] 1:16 PM CDT [facility] Anti-CCP Antibody Negative Negative 06/29/2021 [facility] Interpretation 1:16 PM CDT [facility] Specimen Anatomical Collection Method / Collection Time Recei giselle Time (Source) Location / Volume Laterality Blood Venipuncture / 06/28/2021 2:27 06/28/2021 2:28 Unknown PM CDT PM CDT [employer] DO LAB_1 Performing Organization Address City/[facility]/ZIP Code Phon e Number [facility] [address] [address] Hepatitis B Surface Antigen (06/28/2021 2:27 PM CDT) [facility] Method Time Signature Hepatitis B Negative Negative 06/28/2021 [facility] Surface (Non (Non 8:12 PM CDT LABORATORY Antigen Reactive) Reactive) Specimen Anatomical Collection Method / Collection Time Recei giselle Time (Source) Location / Volume Laterality Blood Venipuncture / 06/28/2021 2:27 06/28/2021 2:28 Unknown PM CDT PM CDT [employer] DO LAB_1 Performing Organization Address [facility]/ZIP Code Phon e Number [facility] [address] [place] [address] HIV 1/2 Ag/Ab 4th Generation (06/28/2021 2:27 PM CDT) [facility] Method Time Signature HIV 1/2 Negative Negative 06/28/2021 [facility] Antigen/Antib (Non (Non 7:52 PM CDT LABORATORY zachary (4th Reactive) Reactive) generation) Comment: HIV-1 p24 Antigen and HIV-1/HIV -2 Antibody not detected Specimen Anatomical Collection Method / Collection Time Recei giselle Time (Source) Location / Volume Laterality Blood Venipuncture / 06/28/2021 2:27 06/28/2021 2:28 Unknown PM CDT PM CDT [employer] DO LAB_1 Performing Organization Address City/[facility]/ZIP Code Phon e Number [facility] [address] [place] [address] Hepatitis C Antibody, with Reflex (06/28/2021 2:27 PM CDT) [facility] Method Time Signature Hepatitis C Negative Negative 06/28/2021 [facility] Antibody (Non (Non 7:52 PM CDT LABORATORY Reactive) Reactive) Comment: Antibodies to HCV not detected. Does not exclude the possiblity of exposure to HCV. Specimen Anatomical Collection Method / Collection Time Recei giselle Time (Source) Location / Volume Laterality Blood Venipuncture / 06/28/2021 2:27 06/28/2021 2:28 Unknown PM CDT PM CDT Lorenza [employer] DO LAB_1 Performing Organization Address [facility] Phon e Number [facility] [address] [place] [address] Liver Panel(Hepatic Function Panel) (06/28/2021 2:27 PM CDT) athologist [facility] Alkaline 70 40 - 150 06/28/2021 [place] Phosphatase U/L 5:11 PM CDT LABORATORY Bilirubin, Total 0.5 0.2 - 1.2 06/28/2021 [place] mg/dL 5:11 PM CDT LABORATORY Bilirubin, 0.2 0.0 - 0.5 06/28/2021 [place] Direct mg/dL 5:11 PM CDT LABORATORY AST (SGOT) 18 10 - 40 06/28/2021 [place] U/L 5:11 PM CDT LABORATORY ALT (SGPT) 21 0 - 55 U/L 06/28/2021 [place] 5:11 PM CDT LABORATORY Protein, Total 6.5 6.4 - 8.3 06/28/2021 [place] g/dL 5:11 PM CDT LABORATORY Albumin 3.9 3.5 - 5.0 06/28/2021 [facility] 5:11 PM CDT LABORATORY Specimen Anatomical Collection Method / Collection Time Recei giselle Time (Source) Location / Volume Laterality Blood Venipuncture / 06/28/2021 2:27 06/28/2021 2:28 Unknown PM CDT PM CDT Lorenza [employer] DO LAB_1 Performing Organization Address City/[facility]/ZIP Code Phon e Number [facility] [address] [place] [address] (ABNORMAL) Creatinine / GFR (06/28/2021 2:27 PM CDT) [facility] gist Method Time Signature Creatinine 0.40 (L) 0.55 - 06/28/2021 [place] 1.02 mg/dL 5:11 PM CDT LABORATORY GFR, Estimated >60 >60 06/28/2021 [place] mL/min/1.7 5:11 PM CDT LABORATORY 3m2 Specimen Anatomical Collection Method / Collection Time Recei giselle Time (Source) Location / Volume Laterality Blood Venipuncture / 06/28/2021 2:27 06/28/2021 2:28 Unknown PM CDT PM CDT Lorenza Q Black DO LAB_1 Performing Organization Address City/State/ZIP Code Phon e Number [facility] [address] [place] [address] documented in this encounter Visit Diagnoses Diagnosis 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
--- OUTSIDE RECORDS SUMMARY | 2022-09-02 08:55 | XMS_ITS | Encounter Summary ---
:1945 Author Organization [employer] Address [address] [place] [address] Care Team Providers Name Role Phone Flo Mckeon MD Primary Care Provider Encounter Details Date Type Department Care Team Description 06/28/2021 Lab Visit [facility] Rheumatoid arthritis [address] [place] [address] with positive rheumatoid [phone] factor (HRC) Social History Tobacco Use Types [...] P athologist Signature MITOGEN >10.000 IU/mL 07/02/2021 [facility] 8:53 AM CDT LABORATORY Specimen Anatomical Collection Method / Collection Time Recei giselle Time (Source) Location / Volume Laterality Blood Venipuncture / 06/28/2021 2:28 06/28/2021 2:28 Unknown PM CDT PM [facility]T [facility] Performing Organization Address [facility] Phon e Number [facility] [address] [place] [address] TB QuantiFERON Gold Plus TB2 (06/28/2021 2:28 PM CDT) athologist Signature TB2 0.081 IU/mL 07/02/2021 [facility] 8:53 AM CDT LABORATORY Specimen Anatomical Collection Method / Collection Time Recei giselle Time (Source) Location / Volume Laterality Blood Venipuncture / 06/28/2021 2:28 06/28/2021 2:28 Unknown PM CDT PM CDT [facility] LAB_1 Performing Organization Address City/[facility] Phon e Number [facility] [address] [place] [address] TB QuantiFERON Gold Plus TB1 (06/28/2021 2:28 PM CDT) athologist Signature TB1 0.094 IU/mL 07/02/2021 [facility] 8:54 AM CDT LABORATORY Specimen Anatomical Collection Method / Collection Time Recei giselle Time (Source) Location / Volume Laterality Blood Venipuncture / 06/28/2021 2:28 06/28/2021 2:28 Unknown PM CDT PM CDT [facility] DO LAB_1 Performing Organization Address City/[facility] Phon e Number [facility] [address] [place] [address] TB QuantiFERON Gold Plus NIL (06/28/2021 2:28 PM CDT) [facility] Method Time Signature 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 NIL 0.024 IU/mL 07/02/2021 [facility] 8:54 AM LABORATORY CDT TB1-NIL 0.07 IU/mL 07/02/2021 [facility] 8:54 AM LABORATORY CDT TB2-NIL 0.06 IU/mL 07/02/2021 [facility] 8:54 AM LABORATORY CDT Mitogen-NIL 9.98 IU/mL 07/02/2021 [facility] 8:54 AM LABORATORY CDT Specimen Anatomical Collection Method / Collection Time Recei giselle Time (Source) Location / Volume Laterality Blood Venipuncture / 06/28/2021 2:28 06/28/2021 2:28 Unknown PM CDT PM CDT Narrative [facility] - 07/02/2021 8:54 A M CDT [...] Organization Address City/State/ZIP Code Phon e Number [facility] [address] [place] [address] (ABNORMAL) Complete Blood Count-W/Diff (06/28/2021 2:28 PM CDT) [facility] Method Time Signature WBC 12.1 (H) 3.5 - 10.5 06/28/2021 [place] x10(9)/L 2:44 PM CDT LABORATORY RBC 5.26 (H) 3.90 - 06/28/2021 [place] 5.03 2:44 PM CDT LABORATORY x10(12)/L Hemoglobin 15.2 12.0 - 06/28/2021 [place] 15.5 g/dL 2:44 PM CDT LABORATORY HCT 48.5 (H) 34.9 - 06/28/2021 [place] 44.5 % 2:44 PM CDT LABORATORY MCV 92.2 80.0 - 06/28/2021 [place] 100.0 fL 2:44 PM CDT LABORATORY MCH 28.9 27.6 - 06/28/2021 [place] 33.3 pg 2:44 PM CDT LABORATORY MCHC 31.3 (L) 31.5 - 06/28/2021 [place] 35.2 g/dL 2:44 PM CDT LABORATORY RDW 13.8 11.9 - 06/28/2021 [place] 15.5 % 2:44 PM CDT LABORATORY Platelets 307 150 - 450 06/28/2021 [place] x10(9)/L 2:44 PM CDT LABORATORY Automated NRBC 0 <=0 /100 06/28/2021 [place] WBC 2:44 PM CDT LABORATORY Neutrophil 10.8 (H) 1.7 - 7.0 06/28/2021 [place] Absolute 10(9)/L 2:44 PM CDT LABORATORY Lymphocyte 0.9 (L) 1.0 - 4.8 06/28/2021 [place] Absolute 10(9)/L 2:44 PM CDT LABORATORY Monocytes 0.3 0.2 - 0.9 06/28/2021 [place] Absolute 10(9)/L 2:44 PM CDT LABORATORY Eosinophil 0.0 0.0 - 0.5 06/28/2021 [place] Absolute 10(9)/L 2:44 PM CDT LABORATORY Basophil 0.0 0.0 - 0.3 06/28/2021 [place] Absolute 10(9)/L 2:44 PM CDT LABORATORY Immature Gran % 0.7 (H) 0.0 - 0.5 06/28/2021 [place] % 2:44 PM CDT LABORATORY Specimen Anatomical Collection Method / Collection Time Recei giselle Time (Source) Location / Volume Laterality Blood Venipuncture / 06/28/2021 2:28 06/28/2021 2:28 Unknown PM CDT PM CDT [employer] DO LAB_1 Performing Organization Address City/State/ZIP Code Phon e Number [facility] [address] [place] [address] Rheumatoid Factor, Quant (06/28/2021 2:27 PM CDT) Analysis Performed At [facility] logist Time Signature Rheumatoid <15 <=30 IU/mL 06/28/2021 [facility] Factor, 7:52 PM CDT LABORATORY Quantitative Specimen Anatomical Collection Method / Collection Time Recei giselle Time (Source) Location / Volume Laterality Blood Venipuncture / 06/28/2021 2:27 06/28/2021 2:28 Unknown PM CDT PM CDT [employer] DO LAB_1 Performing Organization Address City/State/ZIP Code Phon e Number [facility] [address] [place] [address] Anti-CCP Antibody (06/28/2021 2:27 PM CDT) [facility] Method Time Signature Anti-CCP Antibody 1 <7 U/mL 06/29/2021 [facility] 1:16 PM CDT C[facility]AL LAB Anti-CCP Antibody Negative Negative [facility]/29/20[facility] Interpret[facility] 1:16 PM CDT CEN[facility]AL LAB Specimen Anatomical Collection Method / Collection Time Recei giselle Time (Source) Location / Volume Laterality Blood Venipuncture / 06/28/2021 2:27 06/28/2021 2:28 Unknown PM CDT PM CDT Lorenza hopscouto DO LAB_1 Performing Organization Address City/[facility]/ZIP Code Phon e Number [facility] CENTRAL LAB [address] [address] Hepatitis B Surface Antigen (06/28/2021 2:27 PM CDT) [facility] Method Time Signature Hepatitis B Negative Negative 06/28/2021 [facility] Surface (Non (Non 8:12 PM CDT LABORATORY Antigen Reactive) Reactive) Specimen Anatomical Collection Method / Collection Time Recei giselle Time (Source) Location / Volume Laterality Blood Venipuncture / 06/28/2021 2:27 06/28/2021 2:28 Unknown PM CDT PM CDT [facility] [employer] DO LAB_1 Performing Organization Address City/[facility] Code Phon e Number [facility] [address] [place] [address] HIV 1/2 Ag/Ab 4th Generation (06/28/2021 2:27 PM CDT) [facility] Method Time Signature HIV 1/2 Negative Negative 06/28/2021 [facility] Antigen/Antib (Non (Non 7:52 PM CDT LABORATORY zachary (4th Reactive) Reactive) generation) Comment: HIV-1 p24 Antigen and HIV-1/HIV -2 Antibody not detected Specimen Anatomical Collection Method / Collection Time Recei giselle Time (Source) Location / Volume Laterality Blood Venipuncture / 06/28/2021 2:27 06/28/2021 2:28 Unknown PM CDT PM CDT Lorenza hopscouto DO LAB_1 Performing Organization Address City/[facility]/ZIP Code Phon e Number [facility] [address] [employer] [place] [address] Hepatitis C Antibody, with Reflex (06/28/2021 2:27 PM CDT) [facility] Method Time Signature Hepatitis C Negative Negative 06/28/2021 [facility] Antibody (Non (Non 7:52 PM CDT LABORATORY Reactive) Reactive) Comment: Antibodies to HCV not detected. Does not exclude the possiblity of exposure to HCV. Specimen Anatomical Collection Method / Collection Time Recei giselle Time (Source) Location / Volume Laterality Blood Venipuncture / 06/28/2021 2:27 06/28/2021 2:28 Unknown PM CDT PM CDT [facility] Q Black DO LAB_1 Performing Organization Address City/[facility] Phon e Number [facility] [address] [place] [address] Liver Panel(Hepatic Function Panel) (06/28/2021 2:27 PM CDT) athologist [facility] Alkaline 70 40 - 150 06/28/2021 [place] Phosphatase U/L 5:11 PM CDT LABORATORY Bilirubin, Total 0.5 0.2 - 1.2 06/28/2021 [place] mg/dL 5:11 PM CDT LABORATORY Bilirubin, 0.2 0.0 - 0.5 06/28/2021 [place] Direct mg/dL 5:11 PM CDT LABORATORY AST (SGOT) 18 10 - 40 06/28/2021 [place] U/L 5:11 PM CDT LABORATORY ALT (SGPT) 21 0 - 55 U/L 06/28/2021 [place] 5:11 PM CDT LABORATORY Protein, Total 6.5 6.4 - 8.3 06/28/2021 [place] g/dL 5:11 PM CDT LABORATORY Albumin 3.9 3.5 - 5.0 06/28/2021 [place] g/dL 5:11 PM CDT LABORATORY Specimen Anatomical Collection Method / Collection Time Recei giselle Time (Source) Location / Volume Laterality Blood Venipuncture / 06/28/2021 2:27 06/28/2021 2:28 Unknown PM CDT PM CDT Lorenza hopscouto DO LAB_1 Performing Organization Address City/[facility] Phon e Number [facility] [address] [place] [address] (ABNORMAL) Creatinine / GFR (06/28/2021 2:27 PM CDT) [facility] gist Method Time Signature Creatinine 0.40 (L) 0.55 - 06/28/2021 [place] 1.02 mg/dL 5:11 PM CDT LABORATORY GFR, Estimated >60 >60 06/28/2021 [place] mL/min/1.7 5:11 PM CDT LABORATORY 3m2 Specimen Anatomical Collection Method / Collection Time Recei giselle Time (Source) Location / Volume Laterality Blood Venipuncture / 06/28/2021 2:27 06/28/2021 2:28 Unknown PM CDT PM CDT Lorenza Q Black DO LAB_1 Performing Organization Address City/State/ZIP Code Phon e Number [facility] [address] [place] [address] documented in this encounter Visit Diagnoses Diagnosis 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
--- OUTSIDE RECORDS SUMMARY | 2022-09-02 08:55 | XMS_ITS | Encounter Summary ---
:1945 Author Organization [facility] Address [address] [place] [address] Care Team Providers Name Role Phone Flo Mckeon MD Primary Care Provider Reason for Visit Reason Comments Refill Encounter Details Date Type Department Care Team Description 06/13/2022 Refill [facility] [address] Black, Lorenza Q, DO Refill Rheumatology [address] [place] [address] [place] [address] [phone] Social History Tobacco Use Types Packs/Day Years [...] medications documented in this encounter Care Teams Staff Electronic Warfare Officer Relationship Specialty Start Date End Date Flo Mckeon MD PCP - General 06/21/211999 [place] [address] documented as of this encounter
--- OUTSIDE RECORDS SUMMARY | 2022-09-02 08:55 | XMS_ITS | Encounter Summary ---
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) Black, Lorenza Q, DO Procedures XR Hands 1 View Bilat Arthritis [address] [place], [place] [address] Referral ID Status Reason Start Date Expiration Date Visits V isits Requested Authorized [id number] Incomplete 06/28/2021 09/27/2022 1 1 Encounter Details Date Type Department Care Team Description 06/28/2021 Ancillary [place] Black, Lorenza Q, DO Rheumatoid arthritis Procedure Radiology [address] [place] involving multiple [address] [facility] sites with positive Drive [place], [place] [address] (HRC) [id number] Social History Tobacco Use Types Packs/Day Years [...] (HRC) documented in this encounter Care Teams Pin Drafter Operator Relationship Specialty Start Date End Date Flo Mckeon MD PCP - General 06/21/211999 [place] [address] documented as of this encounter
--- OUTSIDE RECORDS SUMMARY | 2022-09-02 08:55 | XMS_ITS | Clinical Summary ---
:1945 Author Organization [facility] Address [address], [place] [address] Care Team Providers Name Role Phone Flo [...] for each transition of care or referral. [employer] Medications Medication Sig Dispensed Refills Start Date [...] tablet needed pseudoephedrine Daily 0 Acti ve ([id number]) 120 MG 12 hour release tablet calcium [...] Encounters Date Type Specialty Care Team Description 08/28/2022 Telephone Rheumatology Chago Baugh MD 08/20/2022 Notes/Orders Rheumatology Lorenza Black DO 08/19/2022 [...] Effective Dates Phone Addre ss Type Group ANA COSTA [id number] 2019-Present [phone] [address] Medicare MEDICARE 2 [place], [place] ADVANTAGE [id number] [place]rito Personal/Family Self 1945 [id number] [facility] [place] (Home) [place] [address] Care Teams Garnett Fixer Relationship Specialty Start Date End Date Flo Mckeon MD PCP - General 06/21/211999 [place] [address]
--- OUTSIDE RECORDS SUMMARY | 2022-09-02 08:55 | XMS_ITS | Encounter Summary ---
:1945 Author Organization [facility] Address [address] [address] Care Team Providers Name Role Phone Flo Mckeon MD Primary Care Provider Reason for Visit Reason Comments Phone Visit Follow-up Encounter Details Date Type Department Care Team Description 09/13/2021 Phone Visit [place] Rheumatoid arthritis, Rheumatology [address] [facility] involving unspecified [address] [facility] site, unspecified [place], [place] [address] [place] [address] whether rheumatoid [phone] factor present (HRC) [phone] (Wo rk) (Primary Dx) Social History Tobacco Use Types Packs/Day Years Used Date Smoking Tobacco: Never Assessed Sex Assigned at Date Recorded Not on file documented as of this encounter Progress Notes Lorenza Black DO - 09/13/2021 2:45 PM CST Error FIC SAFETY ADMINISTRATOR documented in this encounter Plan of Treatment Not on filedocumented as of this encounter Visit Diagnoses Diagnosis Rheumatoid arthritis, involving unspecif ied site, unspecified whether rheumatoid factor present (HRC) - Primary documented in this encounter Care Teams Billing Specialist Relationship Specialty Start Date End Date Flo Mckeon MD PCP - General 06/21/211999 [place] [address] documented as of this encounter
--- OUTSIDE RECORDS SUMMARY | 2022-09-02 08:55 | XMS_ITS | Encounter Summary ---
:1945 Author Organization [facility] Address [address], [place] [address] Care Team Providers Name Role Phone Flo Mckeon MD Primary Care Provider Reason for Visit Reason Comments LAB RESULTS Encounter Details Date Type Department Care Team Description 07/02/2021 Telephone [facility] [address] Lorenza Black DO LAB RESULTS Rheumatology [address] [place] [address] [place] [address] [phone] Social History Tobacco Use Types Packs/Day Years [...] medications documented in this encounter Care Teams Banbury Operator Relationship Specialty Start Date End Date Flo Mckeon MD PCP - General 06/21/211999 [place] [address] documented as of this encounter
--- OUTSIDE RECORDS SUMMARY | 2022-09-02 08:55 | XMS_ITS | Encounter Summary ---
:1945 [address] [facility] Address [address], [place] [address] Care Team Providers Name Role Phone Flo Mckeon MD Primary Care Provider Encounter Details Date Type Department Care Team Description 08/20/2022 Notes/Orders [facility] [address] BlackLorenza Q, DO Rheumatology [address] [place] [address] [place] [address] [phone] Social History Tobacco Use Types Packs/Day Years Used Date Smoking Tobacco: Never Assessed Sex Assigned at Date Recorded Not on file documented as of this encounter Progress Notes Akiko Vega LPN - 08/20/2022 11:12 AM CST Infusion order faxed to [facility]. [phone] INE QUILT STUFFER documented in this encounter Plan of Treatment Not on filedocumented as of this encounter Visit Diagnoses Not on filedocumented in this encounter Care Teams Automatic Gluing Machine Operator Relationship Specialty Start Date End Date Flo Mckeon MD PCP - General 06/21/211999 [place] [address] documented as of this encounter
--- OUTSIDE RECORDS SUMMARY | 2022-09-02 08:55 | XMS_ITS | Encounter Summary ---
:1945 Author Organization [facility] Address [address] [place] [address] Care Team Providers Name Role Phone Unassigned, Provider Primary Care Provider Unavailable Encounter Details Date Type Department Care Team Description 10/13/1989 PN Conversion Only SUPERVISOR REWORK [address] [place] [address] Social History Tobacco Use Types Packs/Day Years Used Date Smoking Tobacco: Never Assessed Sex Assigned at Date Recorded Not on file documented as of this encounter Plan of Treatment Not on filedocumented as of this encounter Visit Diagnoses Not on filedocumented in this encounter Care Teams Photographic Aide Relationship Specialty Start Date End Date Unassigned, Provider PCP - General 07/16/00 06/20/21 [address] [place] [address] documented as of this encounter
--- OUTSIDE RECORDS SUMMARY | 2022-09-02 08:55 | XMS_ITS | Encounter Summary ---
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) BlackChayah Q, DO Procedures XR Shoulder Rt 2+ Views [address] [place], [place] [address] Referral ID Status Reason Start Date Expiration Date Visits V isits Requested Authorized [id number] Incomplete 06/28/2021 09/27/2022 1 1 Encounter Details Date Type Department Care Team Description 06/28/2021 Ancillary [place] Lorenza Q, DO Rheumatoid arthritis Procedure Radiology [address] [place] involving multiple [address] [facility] sites with positive [address] [place], [place] [address] (HRC) [id number] Social History Tobacco Use Types Packs/Day Years [...] (HRC) documented in this encounter Care Teams Information Broker Relationship Specialty Start Date End Date Flo Mckeon MD PCP - General 06/21/211999 [place] [address] documented as of this encounter
--- OUTSIDE RECORDS SUMMARY | 2022-09-02 08:55 | XMS_ITS | Encounter Summary ---
:1945 Author Organization [facility] Address [address] [place] [address] Care Team Providers Name Role Phone Flo Mckeon MD Primary Care Provider Encounter Details Date Type Department Care Team Description 08/28/2022 Telephone [facility] [address] Padmini Baugh MD Rheumatology [address] [place] [address] [facility] [address] [place] [phone] (Wo rk) Social History Tobacco Use Types Packs/Day Years Used Date Smoking Tobacco: Never Assessed Sex Assigned at Date Recorded Not on file documented as of this encounter Nursing Notes Vickie Alejandro LPN - 08/28/2022 2:57 PM CST A user error has taken place: encounter opened in error, closed for administrative reasons. GOODS EXAMINER documented in this encounter Plan of Treatment Not on filedocumented as of this encounter Visit Diagnoses Not on filedocumented in this encounter Care Teams Newspaper Manager Relationship Specialty Start Date End Date Flo Mckeon MD PCP - General 06/21/211999 [place] [address] documented as of this encounter
== END 2022-09-02 08:50 | disposition home or self-care (01) ==
LOC: WOUND 08:49
PROVIDERS: PCP Family Medicine; Visit Provider Nurse Practitioner Family
DX: L89.314 Pressure ulcer of right buttock, stage 4 (principal); M86.68 Other chronic osteomyelitis, other site
CPT/HCPCS: 97597; G0277

== ENCOUNTER 2022-09-09 08:44 | Outpatient (CLI) | payer OTHER, SELFPAY ==
--- OUTSIDE RECORDS SUMMARY | 2022-09-09 08:46 | XMS_ITS | Encounter Summary ---
:1945 Author Organization [facility] Address [address], [place] [address] Care Team Providers Name Role Phone Flo Mckeon MD Primary Care Provider Reason for Visit Reason Comments Phone Visit Follow-up Encounter Details Date Type Department Care Team Description 09/13/2021 Phone Visit [place] Rheumatoid arthritis, Rheumatology [address] [facility] involving unspecified [address] [facility] site, unspecified [place], [place] [address] [place] [address] whether rheumatoid [phone] factor present (HRC) [phone] (Wo rk) (Primary Dx) Social History Tobacco Use Types Packs/Day Years Used Date Smoking Tobacco: Never Assessed Sex Assigned at Date Recorded Not on file documented as of this encounter Progress Notes Lorenza Black DO - 09/13/2021 2:45 PM CST Error BPC ARCHITECT documented in this encounter Plan of Treatment Not on filedocumented as of this encounter Visit Diagnoses Diagnosis Rheumatoid arthritis, involving unspecif ied site, unspecified whether rheumatoid factor present (HRC) - Primary documented in this encounter Care Teams Child And Family Services Specialist Relationship Specialty Start Date End Date Flo Mckeon MD PCP - General 06/21/211999 [place] [address] documented as of this encounter
--- OUTSIDE RECORDS SUMMARY | 2022-09-09 08:46 | XMS_ITS | Encounter Summary ---
:1945 Author Organization [facility] Address [address], [place] [address] Care Team Providers Name Role Phone Flo Mckeon MD Primary Care Provider Reason for Visit Reason Comments Phone Visit Follow-up Encounter Details Date Type Department Care Team Description 07/31/2021 Phone Visit [place] Lorenza Black DO Rheumatoid arthritis with negative rheum atoid factor, involving unspecified site (HRC) (Primary Dx); Rheumatology [address] [place] [address] Encounter for long-term (cur rent) use of medications [address] [place] [address] [place], [place] [phone] (Wo rk) Social History Tobacco Use Types [...] The patient is located at Home in [facility]. The consulting provider is located in [place], [place]. documented in this encounter Plan of Treatment Not on filedocumented as of this encounter Visit Diagnoses Diagnosis Rheumatoid arthritis with negative rheum atoid factor, involving unspecified site (HRC) - Primary Encounter for long-term (current) use of medications Encounter for long-term (current) use of other medications documented in this encounter Care Teams Bush Regenerator Relationship Specialty Start Date End Date Flo Mckeon MD PCP - General 06/21/211999 [place] [address] documented as of this encounter
--- OUTSIDE RECORDS SUMMARY | 2022-09-09 08:46 | XMS_ITS | Encounter Summary ---
:1945 Author Organization [facility] Address [address], [place] [address] Care Team Providers Name Role Phone Flo Mckeon MD Primary Care Provider Encounter Details Date Type Department Care Team Description 08/19/2022 Phone Visit [facility] [address] Lorenza Black DO Rheumatoid arthritis with negative rheum atoid factor, involving unspecified site (HRC) (Primary Dx); Rheumatology [address] [place] [address] Encounter for long-term (cur rent) use of medications [address] [place] [address] [place] [address] [phone] Social History Tobacco Use Types Packs/Day Years [...] coccyx. She has difficulty traveling in from [facility] to anyone of our clinics. The patient [...] we can get orders sent over to [facility] to have her get the rituximab there instead of at our [facility] location. This will aid her with [...] is located at home in the state [facility]. The consulting provider is located in [place], [place]. BOOKBINDER documented in this encounter Plan of Treatment Not on filedocumented as of this encounter Visit Diagnoses Diagnosis Rheumatoid arthritis with negative rheum atoid factor, involving unspecified site (HRC) - Primary Encounter for long-term (current) use of medications Encounter for long-term (current) use of other medications documented in this encounter Care Teams Spa Technician Relationship Specialty Start Date End Date Flo Mckeon MD PCP - General 06/21/211999 [place] [address] documented as of this encounter
--- OUTSIDE RECORDS SUMMARY | 2022-09-09 08:46 | XMS_ITS | Encounter Summary ---
:1945 Author Organization [facility] Address [address], [place] [address] Care Team Providers Name Role Phone Flo Mckeon MD Primary Care Provider Reason for Visit Reason Comments LAB RESULTS Encounter Details Date Type Department Care Team Description 07/02/2021 Telephone [facility] 38[address] Lorenza Black DO LAB RESULTS Rheumatology [address] [place] [address] [place] [address] [phone] Social History Tobacco Use Types Packs/Day Years [...] medications documented in this encounter Care Teams Sports Announcer Relationship Specialty Start Date End Date Flo Mckeon MD PCP - General 06/21/211999 [place] [address] documented as of this encounter
--- OUTSIDE RECORDS SUMMARY | 2022-09-09 08:46 | XMS_ITS | Encounter Summary ---
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) BlakcChayah Q, DO Procedures XR Shoulder Rt 2+ Views [address] [place], [place] [address] Referral ID Status Reason Start Date Expiration Date Visits V isits Requested Authorized [id number] Incomplete 06/28/2021 09/27/2022 1 1 Encounter Details Date Type Department Care Team Description 06/28/2021 Ancillary [place] Lorenza Q, DO Rheumatoid arthritis Procedure Radiology [address] involving multiple [address] [facility] sites with positive Drive [place], [place] [address] (HRC) [id number] Social History Tobacco Use Types Packs/Day Years [...] (HRC) documented in this encounter Care Teams Critical Care Registered Nurse Relationship Specialty Start Date End Date Flo Mckeon MD PCP - General 06/21/211999 [place] [address] documented as of this encounter
--- OUTSIDE RECORDS SUMMARY | 2022-09-09 08:46 | XMS_ITS | Clinical Summary ---
:1945 Author Organization [facility] Address [address], [place] [address] Care Team Providers Name Role Phone Flo [...] for each transition of care or referral. [facility] Medications Medication Sig Dispensed Refills Start Date [...] tablet needed pseudoephedrine Daily 0 Acti ve ([id number]) 120 MG 12 hour release tablet calcium [...] Phone Addre ss Type Group ANA COSTA [id number] 2019-Present [phone] [address] Medicare MEDICARE 2 [place], [place] ADVANTAGE [id number] Pedrito Personal/Family Self 1945 [address] [facility] [place] (Home) [place] [address] Care Teams Day Porter Relationship Specialty Start Date End Date Flo Mckeon MD PCP - General 06/21/211999 [place] [address]
--- OUTSIDE RECORDS SUMMARY | 2022-09-09 08:46 | XMS_ITS | Encounter Summary ---
:1945 Author Organization [facility] Address [address] [place] [address] Care Team Providers Name Role Phone Unassigned, Provider Primary Care Provider Unavailable Encounter Details Date Type Department Care Team Description 10/13/1989 [address] Only [address] ASSISTANT [address] [place] [address] Social History Tobacco Use Types Packs/Day Years Used Date Smoking Tobacco: Never Assessed Sex Assigned at Date Recorded Not on file documented as of this encounter Plan of Treatment Not on filedocumented as of this encounter Visit Diagnoses Not on filedocumented in this encounter Care Teams Fly Raiser Lockstitch Relationship Specialty Start Date End Date Unassigned, Provider PCP - General 07/16/00 06/20/21 [address] [place] [address] documented as of this encounter
--- OUTSIDE RECORDS SUMMARY | 2022-09-09 08:46 | XMS_ITS | Encounter Summary ---
:1945 Author Organization [facility] Address [address] [place] [address] Care Team Providers Name Role Phone Flo Mckeon MD Primary Care Provider Reason for Visit Reason Comments Refill Encounter Details Date Type Department Care Team Description 06/13/2022 Refill [facility] [address] Black, Lorenza Q, DO Refill Rheumatology [address] [place] [address] [place] [address] [phone] Social History Tobacco Use Types Packs/Day Years [...] medications documented in this encounter Care Teams Tank Car Reconditioner Relationship Specialty Start Date End Date Flo Mckeon MD PCP - General 06/21/211999 [place] [address] documented as of this encounter
--- OUTSIDE RECORDS SUMMARY | 2022-09-09 08:46 | XMS_ITS | Encounter Summary ---
:1945 Author Organization [facility] Address [address] [place] [address] Care Team Providers Name Role Phone Flo Mckeon MD Primary Care Provider Encounter Details Date Type Department Care Team Description 06/28/2021 Lab Visit [facility] Rheumatoid arthritis [address] [place] [address] with positive rheumatoid [phone] factor (HRC) Social History Tobacco Use Types [...] 06/28/2021 2:28 Unknown PM CDT PM CDT [facility]_1 Performing Organization Address [facility] Phon e Number [facility] [address] [place] [address] TB QuantiFERON Gold Plus TB2 (06/28/2021 2:28 PM CDT) athologist Signature TB2 0.081 IU/mL 07/02/2021 [facility] 8:53 AM CDT LABORATORY Specimen Anatomical Collection Method / Collection Time Recei giselle Time (Source) Location / Volume Laterality Blood Venipuncture / 06/28/2021 2:28 06/28/2021 2:28 Unknown PM CDT PM CDT [facility] LAB_1 Performing Organization Address City/[facility] Phon e Number [facility] [address] [place] [address] TB QuantiFERON Gold Plus TB1 (06/28/2021 2:28 PM CDT) athologist Signature TB1 0.094 IU/mL 07/02/2021 [facility] 8:54 AM CDT LABORATORY Specimen Anatomical Collection Method / Collection Time Recei giselle Time (Source) Location / Volume Laterality Blood Venipuncture / 06/28/2021 2:28 06/28/2021 2:28 Unknown PM CDT PM CDT [facility] DO LAB_1 Performing Organization Address City/[facility] Phon e Number [facility] [address] [place] [address] TB QuantiFERON Gold Plus NIL (06/28/2021 2:28 PM CDT) [facility] Method Time Signature TB QuantiFERON Negative, [...] Code Phon e Number [facility] [address] [place] [address] (ABNORMAL) Complete Blood Count-W/Diff (06/28/2021 2:28 PM CDT) [facility] Method Time Signature WBC 12.1 (H) 3.5 - 10.5 06/28/2021 [facility] x10(9)/L 2:44 PM CDT LABORATORY RBC 5.26 (H) 3.90 - 06/28/2021 [facility] 5.03 2:44 PM CDT LABORATORY x10(12)/L Hemoglobin 15.2 12.0 - 06/28/2021 [facility] 15.5 g/dL 2:44 PM CDT LABORATORY HCT 48.5 (H) 34.9 - 06/28/2021 [facility] 44.5 % 2:44 PM CDT LABORATORY MCV 92.2 80.0 - 06/28/2021 [facility] 100.0 fL 2:44 PM CDT LABORATORY MCH 28.9 27.6 - 06/28/2021 [facility] 33.3 pg 2:44 PM CDT LABORATORY MCHC 31.3 (L) 31.5 - 06/28/2021 [facility] 35.2 g/dL 2:44 PM CDT LABORATORY RDW 13.8 11.9 - 06/28/2021 [facility] 15.5 % 2:44 PM CDT LABORATORY Platelets 307 150 - 450 06/28/2021 [facility] x10(9)/L 2:44 PM CDT LABORATORY Automated NRBC 0 <=0 /100 06/28/2021 [facility] WBC 2:44 PM CDT LABORATORY Neutrophil 10.8 (H) 1.7 - 7.0 06/28/2021 [facility] Absolute 10(9)/L 2:44 PM CDT LABORATORY Lymphocyte 0.9 (L) 1.0 - 4.8 06/28/2021 [facility] Absolute 10(9)/L 2:44 PM CDT LABORATORY Monocytes 0.3 0.2 - 0.9 06/28/2021 [facility] Absolute 10(9)/L 2:44 PM CDT LABORATORY Eosinophil 0.0 0.0 - 0.5 06/28/2021 [facility] Absolute 10(9)/L 2:44 PM CDT LABORATORY Basophil 0.0 0.0 - 0.3 06/28/2021 [facility] Absolute 10(9)/L 2:44 PM CDT LABORATORY Immature Gran % 0.7 (H) 0.0 - 0.5 06/28/2021 [facility] % 2:44 PM CDT LABORATORY Specimen Anatomical Collection Method / Collection Time Recei giselle Time (Source) Location / Volume Laterality Blood Venipuncture / 06/28/2021 2:28 06/28/2021 2:28 Unknown PM CDT PM CDT [employer] DO LAB_1 Performing Organization Address City/State/ZIP Code Phon e Number [facility] [address] [place] [address] Rheumatoid Factor, Quant (06/28/2021 2:27 PM CDT) Analysis Performed At [facility] logist Time Signature Rheumatoid <15 <=30 IU/mL 06/28/2021 [facility] Factor, 7:52 PM CDT LABORATORY Quantitative Specimen Anatomical Collection Method / Collection Time Recei giselle Time (Source) Location / Volume Laterality Blood Venipuncture / 06/28/2021 2:27 06/28/2021 2:28 Unknown PM CDT PM CDT [employer] TVo DO LAB_1 Performing Organization Address City/State/ZIP Code Phon e Number [facility] [address] [place] [address] Anti-CCP Antibody (06/28/2021 2:27 PM CDT) [facility] gist Method Time Signature Anti-CCP Antibody 1 <7 U/mL 06/29/2021 [facility] 1:16 PM CDT CENTRAL LAB Anti-CCP Antibody Negative Negative 06/29/2021 [facility] Interpretation 1:16 PM CDT CENTRAL LAB Specimen Anatomical Collection Method / Collection Time Recei giselle Time (Source) Location / Volume Laterality Blood Venipuncture / 06/28/2021 2:27 06/28/2021 2:28 Unknown PM CDT PM CDT Lorenza Newgisticso DO LAB_1 Performing Organization Address City/[facility]/ZIP Code Phon e Number [facility] CENTRAL [facility] [address] [address] Hepatitis B Surface Antigen (06/28/2021 2:27 PM CDT) [facility] Method Time Signature Hepatitis B Negative Negative 06/28/2021 [facility] Surface (Non (Non 8:12 PM CDT LABORATORY Antigen Reactive) Reactive) Specimen Anatomical Collection Method / Collection Time Recei giselle Time (Source) Location / Volume Laterality Blood Venipuncture / 06/28/2021 2:27 06/28/2021 2:28 Unknown PM CDT PM CDT [facility] Curetis DO LAB_1 Performing Organization Address City/[facility] Code Phon e Number [facility] [address] [place] [address] HIV 1/2 Ag/Ab 4th Generation (06/28/2021 2:27 PM CDT) [facility] Method Time Signature HIV 1/2 Negative Negative 06/28/2021 [facility] Antigen/Antib (Non (Non 7:52 PM CDT LABORATORY zachary (4th Reactive) Reactive) generation) Comment: HIV-1 p24 Antigen and HIV-1/HIV -2 Antibody not detected Specimen Anatomical Collection Method / Collection Time Recei giselle Time (Source) Location / Volume Laterality Blood Venipuncture / 06/28/2021 2:27 06/28/2021 2:28 Unknown PM CDT PM CDT Lorenza Newgisticso DO LAB_1 Performing Organization Address City/[facility]/ZIP Code Phon e Number [facility] [address] [employer] [place] [address] Hepatitis C Antibody, with Reflex (06/28/2021 2:27 PM CDT) [facility] gist Method Time Signature Hepatitis C Negative Negative 06/28/2021 [facility] Antibody (Non (Non 7:52 PM CDT LABORATORY Reactive) Reactive) Comment: Antibodies to HCV not detected. Does not exclude the possiblity of exposure to HCV. Specimen Anatomical Collection Method / Collection Time Recei giselle Time (Source) Location / Volume Laterality Blood Venipuncture / 06/28/2021 2:27 06/28/2021 2:28 Unknown PM CDT PM CDT [facility] Q Black DO LAB_1 Performing Organization Address City/[facility] Phon e Number [facility] [address] [place] [address] Liver Panel(Hepatic Function Panel) (06/28/2021 2:27 PM CDT) athologist [facility] Alkaline 70 40 - 150 06/28/2021 [facility] Phosphatase U/L 5:11 PM CDT LABORATORY Bilirubin, Total 0.5 0.2 - 1.2 06/28/2021 [place] mg/dL 5:11 PM CDT LABORATORY Bilirubin, 0.2 0.0 - 0.5 06/28/2021 [facility] Direct mg/dL 5:11 PM CDT LABORATORY AST (SGOT) 18 10 - 40 06/28/2021 [facility] U/L 5:11 PM CDT LABORATORY ALT (SGPT) 21 0 - 55 U/L 06/28/2021 [facility] 5:11 PM CDT LABORATORY Protein, Total 6.5 6.4 - 8.3 06/28/2021 [facility] g/dL 5:11 PM CDT LABORATORY Albumin 3.9 3.5 - 5.0 06/28/2021 [facility] g/dL 5:11 PM CDT LABORATORY Specimen Anatomical Collection Method / Collection Time Recei giselle Time (Source) Location / Volume Laterality Blood Venipuncture / 06/28/2021 2:27 06/28/2021 2:28 Unknown PM CDT PM CDT Lorenza Newgisticso DO LAB_1 Performing Organization Address City/[facility] Phon e Number [facility] [address] [place] [address] (ABNORMAL) Creatinine / GFR (06/28/2021 2:27 PM CDT) [facility] gist Method Time Signature Creatinine 0.40 (L) 0.55 - 06/28/2021 [facility] 1.02 mg/dL 5:11 PM CDT LABORATORY GFR, Estimated >60 >60 06/28/2021 [facility] mL/min/1.7 5:11 PM CDT LABORATORY 3m2 Specimen Anatomical Collection Method / Collection Time Recei giselle Time (Source) Location / Volume Laterality Blood Venipuncture / 06/28/2021 2:27 06/28/2021 2:28 Unknown PM CDT PM CDT Lorenza Q Black DO LAB_1 Performing Organization Address City/State/ZIP Code Phon e Number [facility] [address] [place] [address] documented in this encounter Visit Diagnoses Diagnosis 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) documented in this encounter Care Teams Program Director/Traffic Director Relationship Specialty Start Date End Date Flo Mckeon MD PCP - General 06/21/211999 [place] [address] documented as of this encounter
--- OUTSIDE RECORDS SUMMARY | 2022-09-09 08:46 | XMS_ITS | Encounter Summary ---
:1945 Author Organization [facility] Address [address] [place] [address] Care Team Providers Name Role Phone Flo Mckeon MD Primary Care Provider Reason for Referral Procedure/Equipment (Routine) - Incomplete Specialty Diagnoses / Procedures Referred By Contact Refer red To Contact Diagnoses 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) Lorenza Black DO Procedures XR Shoulder Rt 2+ Views [address] [place], [place] [address] Referral ID Status Reason Start Date Expiration Date Visits V isits Requested Authorized [id number] Incomplete 06/28/2021 09/27/2022 1 1 Procedure/Equipment (Routine) - Incomplete Specialty Diagnoses / Procedures Referred By Contact Refer red To Contact Diagnoses 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) Lorenza Black DO Procedures XR Hands 1 View Bilat Arthritis [address] [place], [place] [address] Referral ID Status Reason Start Date Expiration Date Visits V isits Requested Authorized [id number] Incomplete 06/28/2021 09/27/2022 1 1 Reason for Visit Reason Comments CONSULT Encounter Details Date Type Department Care Team Description 06/28/2021 Office Visit Lorenza Wolf DO 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) (Primary Dx); Rheumatology [address] [place] 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 She has been on prednisone 5 mg and then recently 10 mg [id number] Today the patient states that her hands [...] 6/10. She laments the inability to picker packer her grandchildren. She has tried anti-inflammatories and [...] smoked. 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 Exam Gen: NAD, [...] 65 minutes including, but not limited to, [id number]-face time spent reviewing records, counseling, and coordination [...] the ra diocarpal and multiple intercarpal joints. [facility] [email or web address] Black DO RAD GD XR Shoulder Rt [...] degenerative arthrosis of the AC joint. Lorenza [employer] DO RAD GD Rheumatoid Factor, Quant (06/28/2021 2:27 PM CDT) Analysis Performed At Path[facility] logist Time Signature Rheumatoid <15 <=30 IU/mL 06/28/2021 [facility] Factor, 7:52 PM CDT LABORATORY Quantitative Specimen Anatomical Collection Method / Collection Time Recei giselle Time (Source) Location / Volume Laterality Blood Venipuncture / 06/28/2021 2:27 06/28/2021 2:28 Unknown PM CDT PM CDT Lorenza [email or web address] Black DO LAB_1 Performing Organization Address City/State/ZIP Code Phon e Number [facility] [address] [place] [address] Anti-CCP Antibody (06/28/2021 2:27 PM CDT) [facility] Method Time Signature Anti-CCP Antibody 1 <7 U/mL 06/29/2021 [facility] 1:16 PM CDT CENTRAL LAB Anti-CCP Antibody Negative Negative 06/29/2021 [facility] Interpretation 1:16 PM CDT CENTRAL LAB Specimen Anatomical Collection Method / Collection Time Recei giselle Time (Source) Location / Volume Laterality Blood Venipuncture / 06/28/2021 2:27 06/28/2021 2:28 Unknown PM CDT PM CDT [employer] DO LAB_1 Performing Organization Address City/[facility]/ZIP Code Phon e Number [facility]ENTER[facility] CENTRAL LAB [address] [address] Hepatitis B Surface Antigen (06/28/2021 2:27 PM CDT) [facility] Method Time Signature Hepatitis B Negative Negative 06/28/2021 [facility] Surface (Non (Non 8:12 PM CDT LABORATORY Antigen Reactive) Reactive) Specimen Anatomical Collection Method / Collection Time Recei giselle Time (Source) Location / Volume Laterality Blood Venipuncture / 06/28/2021 2:27 06/28/2021 2:28 Unknown PM CDT PM CDT [employer] DO LAB_1 Performing Organization Address [facility]/ZIP Code Phon e Number [facility] [address] [place] [address] HIV 1/2 Ag/Ab 4th Generation (06/28/2021 2:27 PM CDT) [facility] Method Time Signature HIV 1/2 Negative Negative 06/28/2021 [facility] Antigen/Antib (Non (Non 7:52 PM CDT LABORATORY zachary (4th Reactive) Reactive) generation) Comment: HIV-1 p24 Antigen and HIV-1/HIV -2 Antibody not detected Specimen Anatomical Collection Method / Collection Time Recei giselle Time (Source) Location / Volume Laterality Blood Venipuncture / 06/28/2021 2:27 06/28/2021 2:28 Unknown PM CDT PM CDT [employer] DO LAB_1 Performing Organization Address City/[facility]/ZIP Code Phon e Number [facility] [address] [place] [address] Hepatitis C Antibody, with Reflex (06/28/2021 2:27 PM CDT) [facility] gist Method Time Signature Hepatitis C Negative Negative 06/28/2021 [facility] Antibody (Non (Non 7:52 PM CDT LABORATORY Reactive) Reactive) Comment: Antibodies to HCV not detected. Does not exclude the possiblity of exposure to HCV. Specimen Anatomical Collection Method / Collection Time Recei giselle Time (Source) Location / Volume Laterality Blood Venipuncture / 06/28/2021 2:27 06/28/2021 2:28 Unknown PM CDT PM CDT Lorenza [employer] DO LAB_1 Performing Organization Address [facility] Phon e Number [facility] [address] [place] [address] Liver Panel(Hepatic Function Panel) (06/28/2021 2:27 PM CDT) athologist [facility] Alkaline 70 40 - 150 06/28/2021 [facility] Phosphatase U/L 5:11 PM CDT LABORATORY Bilirubin, Total 0.5 0.2 - 1.2 06/28/2021 [place] mg/dL 5:11 PM CDT LABORATORY Bilirubin, 0.2 0.0 - 0.5 06/28/2021 [facility] Direct mg/dL 5:11 PM CDT LABORATORY AST (SGOT) 18 10 - 40 06/28/2021 [facility] U/L 5:11 PM CDT LABORATORY ALT (SGPT) 21 0 - 55 U/L 06/28/2021 [facility] 5:11 PM CDT LABORATORY Protein, Total 6.5 6.4 - 8.3 06/28/2021 [place] g/dL 5:11 PM CDT LABORATORY Albumin 3.9 3.5 - 5.0 06/28/2021 [facility] g/dL 5:11 PM CDT LABORATORY Specimen Anatomical Collection Method / Collection Time Recei giselle Time (Source) Location / Volume Laterality Blood Venipuncture / 06/28/2021 2:27 06/28/2021 2:28 Unknown PM CDT PM CDT Lorenza [employer] DO LAB_1 Performing Organization Address City/[facility]/ZIP Code Phon e Number [facility] [address] [place] [address] (ABNORMAL) Creatinine / GFR (06/28/2021 2:27 PM CDT) [facility] gist Method Time Signature Creatinine 0.40 (L) 0.55 - 06/28/2021 [facility] 1.02 mg/dL 5:11 PM CDT LABORATORY GFR, Estimated >60 >60 06/28/2021 [facility] mL/min/1.7 5:11 PM CDT LABORATORY 3m2 Specimen Anatomical Collection Method / Collection Time Recei giselle Time (Source) Location / Volume Laterality Blood Venipuncture / 06/28/2021 2:27 06/28/2021 2:28 Unknown PM CDT PM CDT Lorenza Q Black DO LAB_1 Performing Organization Address City/State/ZIP Code Phon e Number [facility] [address] [place] [address] documented in this encounter Visit Diagnoses Diagnosis 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) - Primary Other secondary osteoarthritis of both h ands Chronic right shoulder pain Pain in joint, shoulder region 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) 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) documented in this encounter Care Teams An/Syq 13 Nav/C2 Operator Relationship Specialty Start Date End Date Flo Mckeon MD PCP - General 06/21/211999 [place] [address] documented as of this encounter
--- OUTSIDE RECORDS SUMMARY | 2022-09-09 08:46 | XMS_ITS | Encounter Summary ---
:1945 Author Organization [facility] Address [address] [place] [address] Care Team Providers Name Role Phone Flo Mckeon MD Primary Care Provider Reason for Visit Procedure/Equipment (Routine) - Incomplete Specialty Diagnoses / Procedures Referred By Contact Refer red To Contact Diagnoses 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) Black, Lorenza Q, DO Procedures XR Hands 1 View Bilat Arthritis [address] [place], [place] [address] Referral ID Status Reason Start Date Expiration Date Visits V isits Requested Authorized [id number] Incomplete 06/28/2021 09/27/2022 1 1 Encounter Details Date Type Department Care Team Description 06/28/2021 Ancillary [place] Black, Lorenza Q, DO Rheumatoid arthritis Procedure Radiology [address] [place] involving multiple [address] [facility] sites with positive [address] [place], [place] [address] (HRC) [id number] Social History Tobacco Use Types Packs/Day Years [...] (HRC) documented in this encounter Care Teams Desk Lieutenant Relationship Specialty Start Date End Date Flo Mckeon MD PCP - General 06/21/211999 [place] [address] documented as of this encounter
--- OUTSIDE RECORDS SUMMARY | 2022-09-09 08:46 | XMS_ITS | Encounter Summary ---
:1945 Author Organization [facility] Address [address] [place] [address] Care Team Providers Name Role Phone Flo Mckeon MD Primary Care Provider Encounter Details Date Type Department Care Team Description 08/28/2022 Telephone [facility] 3800 Padmini Baugh MD Rheumatology [address] [place] [address] [facility] [address] [place] [phone] (Wo rk) Social History Tobacco Use Types Packs/Day Years Used Date Smoking Tobacco: Never Assessed Sex Assigned at Date Recorded Not on file documented as of this encounter Nursing Notes Vickie Alejandro LPN - 08/28/2022 2:57 PM CST A user error has taken place: encounter opened in error, closed for administrative reasons. 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
--- OUTSIDE RECORDS SUMMARY | 2022-09-09 08:46 | XMS_ITS | Encounter Summary ---
:1945 Author Organization [facility] Address [address], [place] [address] Care Team Providers Name Role Phone Flo Mckeon MD Primary Care Provider Encounter Details Date Type Department Care Team Description 08/20/2022 Notes/Orders [facility] 38[address] BlackLorenza Q, DO Rheumatology [address] [place] [address] [place] [address] [phone] Social History Tobacco Use Types Packs/Day Years Used Date Smoking Tobacco: Never Assessed Sex Assigned at Date Recorded Not on file documented as of this encounter Progress Notes Akiko Vega LPN - 08/20/2022 11:12 AM CST Infusion order faxed to [facility]. [phone] [facility] [place] documented in this encounter Plan of Treatment Not on filedocumented as of this encounter Visit Diagnoses Not on filedocumented in this encounter Care Teams Core Setter Relationship Specialty Start Date End Date Flo Mckeon MD PCP - General 06/21/211999 [place] [address] documented as of this encounter
--- OUTSIDE RECORDS SUMMARY | 2022-09-09 08:46 | XMS_ITS | Clinical Summary ---
:1945 Author Organization [employer] [facility] [place] [address] Care Team Providers Name Role Phone Kallie Tamayo TEXTILE KNITTER Unavailable [facility], [facility] Unavailable Flo Mckeon MD Primary [...] 76 12/31/1991 Lipids for age 45-75 12/31/1991 Zoster (shingles) series for age 50+ (1 of 2) 1996 DEXA/DXA scan for age 65+ 12/31/2011 Pneumococcal series for age 65+ (1 - PCV) 12/31/2011 Influenza for age 65+ 06/13/2022 Results Not on filefrom Last 3 Months Insurance Payer Benefit Plan / Subscriber ID Effective Dates Phone Addre ss Type Group MEDICARE PPS HC MEDICARE [id number] 2011-Presen [address] [place] [address] [employer]is [employer] [facility] [id number] 2019-Johnny [id number] [place] [address] Josh Major Personal/Famil Self 1945 [address] [facility] [employer] y (Home) [place], [place] [phone] (Work) Care Teams Research Tech Relationship Specialty Start Date End Date Flo Mckeon MD PCP - General Family Practice 10/04/211999 [place] [address] Kallie Tamayo, FROILAN Family Practice 01/17/14 [facility] [address] [place] [address] [facility], [facility] 01/29/14
== END 2022-09-09 08:45 | disposition home or self-care (01) ==
LOC: WOUND 08:44
PROVIDERS: PCP Family Medicine; Visit Provider Physician Assistant Surgical
DX: M86.68 Other chronic osteomyelitis, other site (principal); L89.314 Pressure ulcer of right buttock, stage 4
CPT/HCPCS: 11043; G0277

== ENCOUNTER 2022-09-10 09:00 | Outpatient (RCR) | payer OTHER, SELFPAY ==
--- NOTE | 2022-08-23 15:21 | PC.NURSE ---
Addendum entered by Alaina García RN 08/23/22 15:48: Received referral for Roxlence (Rituxan biosimilar). Reviewed by Maddi Thrasher APRN and provider had follow-up questions regarding labs, pre-meds, and patient safety given she is wheelchair bound. RN called the ordering provider office and obtained orders for pre-meds. No labs needed. Breakdown Person called pt directly to discuss her support and mobility. Mary states that she gets a medical ride to and from the hospital. She doesn't have anyone with her at her appointments. Mary is wheelchair bound and cannot bear weight. She has a urinary catheter and wears depends in case of BM. Pt shares that she has been going to the wound clinic at [facility] - and will continue to do so. She would like to have her infusion done any day after noon so she can make one trip to the hospital. Will discuss case with Maddi Thrasher APRN on Friday and follow-up with Mary. Pt verbalized understanding. Original Note: Safety discussion: Received referral for Roxlence (Rituxan biosimilar). Reviewed by Maddi Thrasher APRN and
== END 2022-09-11 23:59 | disposition home or self-care (01) ==
LOC: WOUND 09:00
PROVIDERS: PCP Family Medicine; Visit Provider Nurse Practitioner Family
DX: M86.68 Other chronic osteomyelitis, other site (principal); L89.314 Pressure ulcer of right buttock, stage 4; I87.2 Venous insufficiency (chronic) (peripheral); Q82.0 Hereditary lymphedema
CPT/HCPCS: G0277

== ENCOUNTER 2022-09-12 08:00 | Outpatient (RCR) | payer OTHER, SELFPAY | END 2022-10-12 23:59 | disposition home or self-care (01) | LOC: WOUND 08:00 | PROVIDERS: PCP Family Medicine; Visit Provider Nurse Practitioner Family | DX: M86.68 Other chronic osteomyelitis, other site (principal); L89.314 Pressure ulcer of right buttock, stage 4; Q82.0 Hereditary lymphedema; I87.2 Venous insufficiency (chronic) (peripheral) | CPT/HCPCS: G0277 ==

== ENCOUNTER 2022-09-16 08:46 | Outpatient (CLI) | payer OTHER, SELFPAY ==
--- OUTSIDE RECORDS SUMMARY | 2022-09-16 09:02 | XMS_ITS | Encounter Summary ---
:1945 Author Organization [facility] Address [address] [place] [address] Care Team Providers Name Role Phone Flo Mckeon MD Primary Care Provider Encounter Details Date Type Department Care Team Description 08/28/2022 Telephone [facility] 3800 Padmini Baugh MD Rheumatology [address] [place] [address] [facility] [address] [place] [phone] (Wo rk) Social History Tobacco Use Types Packs/Day Years Used Date Smoking Tobacco: Never Assessed Sex Assigned at Date Recorded Not on file documented as of this encounter Nursing Notes Vickie Alejandro LPN - 08/28/2022 2:57 PM CST A user error has taken place: encounter opened in error, closed for administrative reasons. 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
--- OUTSIDE RECORDS SUMMARY | 2022-09-16 09:02 | XMS_ITS | Encounter Summary ---
:1945 Author Organization [facility] Address [address], [place] [address] Care Team Providers Name Role Phone Flo Mckeon MD Primary Care Provider Reason for Visit Reason Comments Refill Encounter Details Date Type Department Care Team Description 12/12/2021 Refill [facility] 38[address] Lorenza Black, Refill Rheumatology [address] [place] [address] [place] [address] [phone] Social History Tobacco Use Types Packs/Day Years Used Date Smoking Tobacco: Never Assessed Sex Assigned at Date Recorded Not on file documented as of this encounter Nursing Notes Akiko Vega LPN - 12/12/2021 12:22 PM CST Left message informing patient. MENT SETTER [facility] Roman PA-C - 12/12/2021 12:18 PM [...] with Dr. Black as soon as possible. MENT SETTER documented in this encounter Plan of Treatment Upcoming Encounters Date Type Specialty Care Team Description 09/30/2022 Phone Visit Rheumatology Sofia, Lorenza Hernández, DO [address] [facility] [place] N [address] (Wo rk) documented as of this encounter Visit Diagnoses Not on filedocumented in this encounter Care Teams It Security Manager Relationship Specialty Start Date End Date Flo Mckeon MD PCP - General 06/21/211999 [place] [address] documented as of this encounter
--- OUTSIDE RECORDS SUMMARY | 2022-09-16 09:02 | XMS_ITS | Encounter Summary ---
:1945 Author Organization [employer] [facility] Address [address], [place] [address] Care Team Providers Name Role Phone Flo Mckeon MD Primary Care Provider Encounter Details Date Type Department Care Team Description 08/19/[address] 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 [address] [phone] Social History Tobacco Use Types Packs/Day Years [...] coccyx. She has difficulty traveling in from [facility] to anyone of our clinics. The patient [...] we can get orders sent over to [facility] to have her get the rituximab there instead of at our [facility] location. This will aid her [...] is located at home in the state [facility]. The consulting provider is located in [place], [place]. 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
--- OUTSIDE RECORDS SUMMARY | 2022-09-16 09:02 | XMS_ITS | Encounter Summary ---
:1945 Author Organization [facility] Address [address] [place] [address] Care Team Providers Name Role Phone Flo Mckeon MD Primary Care Provider Reason for Visit Reason Comments Refill Encounter Details Date Type Department Care Team Description 06/13/2022 Refill [facility] 3800 Lorenza Black DO Refill Rheumatology [address] 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
--- OUTSIDE RECORDS SUMMARY | 2022-09-16 09:02 | XMS_ITS | Encounter Summary ---
:1945 Author Organization [facility] Address [address] [place] [address] Care Team Providers Name Role Phone Flo Mckeon MD Primary Care Provider Encounter Details Date Type Department Care Team Description 08/20/2022 Notes/Orders [facility] 38[address] Lorenza Black DO Rheumatology [address] [place] [address] [place] [address] [phone] Social History Tobacco Use Types Packs/Day Years Used Date Smoking Tobacco: Never Assessed Sex Assigned at Date Recorded Not on file documented as of this encounter Progress Notes Akiko Vega LPN - 08/20/2022 11:12 AM CST Infusion order faxed to [facility]. [phone] RUMENT WORKER documented in this encounter Plan of Treatment Upcoming Encounters Date Type Specialty Care Team Description 09/30/2022 Phone Visit Rheumatology Lorenza Black DO [address] [facility] N [address] (Wo rk) documented as of this encounter Visit Diagnoses Not on filedocumented in this encounter Care Teams Technical Administrative Assistant Relationship Specialty Start Date End Date Flo Mckeon MD PCP - General 06/21/211999 [place] [address] documented as of this encounter
--- OUTSIDE RECORDS SUMMARY | 2022-09-16 09:02 | XMS_ITS | Clinical Summary ---
:1945 Author Organization [facility] Address [address], [place] [address] Care Team Providers Name Role Phone Flo [...] for each transition of care or referral. [employer] Medications Medication Sig Dispensed Refills Start Date [...] tablet needed pseudoephedrine Daily 0 Acti ve ([id number]) 120 MG 12 hour release tablet calcium [...] for l sharmila-term (current) use of medications from Last 3 Months Immunizations Name Administration Dates Next Due DT Ped 03/23/1987 Social History Tobacco Use Types Packs/Day Years Used Date Smoking Tobacco: Never Assessed Sex Assigned at Date Recorded Not on file Plan of Treatment Upcoming Encounters Date Type Specialty Care Team Description 09/30/2022 Phone Visit Rheumatology Lorenza Black DO [address] [facility] N [address] (Wo rk) Health Maintenance Due Date Last [...] Phone Addre ss Type Group ANA COSTA [id number] 2019-Present [phone] [id number] Medicare MEDICARE 2 [place], [facility] [id number] Pedrito, Personal/Family Self [address] [place] (Home) [place] [address] Care Teams Supervisor Leaf Spring Repair Relationship Specialty Start Date End Date Flo Mckeon MD PCP - General 06/21/211999 [place] [address]
--- OUTSIDE RECORDS SUMMARY | 2022-09-16 09:03 | XMS_ITS | Clinical Summary ---
:1945 Author Organization [employer] [facility] Address [place] [address] Care Team Providers Name Role Phone Kallie Tamayo CLEAN RICE BROKER Unavailable [facility] Unavailable Flo Mckeon MD Primary Care [...] ss Type Group MEDICARE PPS HC MEDICARE [id number] 2011-Presen [address] PPS t [address] [place] [address] ALL[a]list games [facility] [facility] [id number] 2019-Johnny [address] [place] [address] Josh Major Personal/Famil Self 1945 [address] [facility] [employer] y (Home) [place], [place] [phone] [address] (Work) Care Teams Supervisor Cigar Processing Relationship Specialty Start Date End Date Flo Mckeon MD PCP - General Family Practice 10/04/211999 [place] [address] Kallie Tamayo, FROILAN Family Practice 01/17/14 [facility]5 [facility] [address] [place] [address] [facility] 01/29/14
--- OUTSIDE RECORDS SUMMARY | 2022-09-16 09:03 | XMS_ITS | Encounter Summary ---
:1945 Author Organization [employer] Address [address] [place] [address] Care Team Providers Name Role Phone Flo Mckeon MD Primary Care Provider Encounter Details Date Type Department Care Team Description 06/28/2021 Lab Visit [facility] Rheumatoid arthritis [address] [place] [address] with positive rheumatoid [phone] factor (HRC) Social History Tobacco Use Types Packs/Day Years Used Date Smoking Tobacco: Never Assessed Sex Assigned at Date Recorded Not on file documented as of this encounter Plan of Treatment Upcoming Encounters Date Type Specialty Care Team Description 09/30/2022 Phone Visit Rheumatology Black, Lorenza Hernández, DO [address] [facility] [place] N [address] (Wo rk) documented as of this encounter [...] CDT) athologist Signature MITOGEN >10.000 IU/mL 07/02/2021 SCIENTOLOGIST 8:53 AM CDT LABORATORY Specimen Anatomical Collection Method / Collection Time Recei giselle Time (Source) Location / Volume Laterality Blood Venipuncture / 06/28/2021 2:28 06/28/2021 2:28 Unknown PM CDT PM CDT Lorenza Hernández Black DO LAB_1 Performing Organization Address [facility] Phon e Number [facility] [address] [place] [address] TB QuantiFERON Gold Plus TB2 (06/28/2021 2:28 PM CDT) athologist Signature TB2 0.081 IU/mL 07/02/2021 SCIENTOLOGIST 8:53 AM CDT LABORATORY Specimen Anatomical Collection Method / Collection Time Recei giselle Time (Source) Location / Volume Laterality Blood Venipuncture / 06/28/2021 2:28 06/28/2021 2:28 Unknown PM CDT PM CDT Lorenza Hernández Black DO LAB_1 Performing Organization Address [facility] Phon e Number [facility] [address] [place] [address] TB QuantiFERON Gold Plus TB1 (06/28/2021 2:28 PM CDT) athologist Signature TB1 0.094 IU/mL 07/02/2021 SCIENTOLOGIST 8:54 AM CDT LABORATORY Specimen Anatomical Collection Method / Collection Time Recei giselle Time (Source) Location / Volume Laterality Blood Venipuncture / 06/28/2021 2:28 06/28/2021 2:28 Unknown PM CDT PM CDT Lorenza Hernández Black DO LAB_1 Performing Organization Address City/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 NIL 0.024 IU/mL 07/02/2021 SCIENTOLOGIST 8:54 AM LABORATORY CDT TB1-NIL 0.07 IU/mL 07/02/2021 SCIENTOLOGIST 8:54 AM LABORATORY CDT TB2-NIL 0.06 IU/mL 07/02/2021 SCIENTOLOGIST 8:54 AM LABORATORY CDT Mitogen-NIL 9.98 IU/mL 07/02/2021 SCIENTOLOGIST 8:54 AM LABORATORY CDT Specimen Anatomical Collection Method / Collection Time Recei giselle Time (Source) Location / Volume Laterality Blood Venipuncture / 06/28/2021 2:28 06/28/2021 2:28 Unknown PM CDT PM CDT Narrative [facility] - 07/02/2021 8:54 A M CDT [...] Organization Address City/State/ZIP Code Phon e Number [facility] [address] [place] [address] (ABNORMAL) Complete Blood Count-W/Diff (06/28/2021 2:28 PM CDT) [facility] gist Method Time Signature WBC 12.1 (H) 3.5 - 10.5 06/28/2021 [place] x10(9)/L 2:44 PM CDT LABORATORY RBC 5.26 (H) 3.90 - 06/28/2021 [place] 5.03 2:44 PM CDT LABORATORY x10(12)/L Hemoglobin 15.2 12.0 - 06/28/2021 [place] 15.5 g/dL 2:44 PM CDT LABORATORY HCT 48.5 (H) 34.9 - 06/28/2021 [place] 44.5 % 2:44 PM CDT LABORATORY MCV 92.2 80.0 - 06/28/2021 [place] 100.0 fL 2:44 PM CDT LABORATORY MCH 28.9 27.6 - 06/28/2021 [place] 33.3 pg 2:44 PM CDT LABORATORY MCHC 31.3 (L) 31.5 - 06/28/2021 [place] 35.2 g/dL 2:44 PM CDT LABORATORY RDW 13.8 11.9 - 06/28/2021 [place] 15.5 % 2:44 PM CDT LABORATORY Platelets 307 150 - 450 06/28/2021 [place] x10(9)/L 2:44 PM CDT LABORATORY Automated NRBC 0 <=0 /100 06/28/2021 [place] WBC 2:44 PM CDT LABORATORY Neutrophil 10.8 (H) 1.7 - 7.0 06/28/2021 [place] Absolute 10(9)/L 2:44 PM CDT LABORATORY Lymphocyte 0.9 (L) 1.0 - 4.8 06/28/2021 [place] Absolute 10(9)/L 2:44 PM CDT LABORATORY Monocytes 0.3 0.2 - 0.9 06/28/2021 [place] Absolute 10(9)/L 2:44 PM CDT LABORATORY Eosinophil 0.0 0.0 - 0.5 06/28/2021 [place] Absolute 10(9)/L 2:44 PM CDT LABORATORY Basophil 0.0 0.0 - 0.3 06/28/2021 [place] Absolute 10(9)/L 2:44 PM CDT LABORATORY Immature Gran % 0.7 (H) 0.0 - 0.5 06/28/2021 [place] % 2:44 PM CDT LABORATORY Specimen Anatomical Collection Method / Collection Time Recei giselle Time (Source) Location / Volume Laterality Blood Venipuncture / 06/28/2021 2:28 06/28/2021 2:28 Unknown PM CDT PM CDT Sigmoid Pharmao DO LAB_1 Performing Organization Address City/[facility]/ZIP Code Phon e Number [place] [facility] [address] [place] [address] Rheumatoid Factor, Quant (06/28/2021 2:27 PM CDT) Analysis Performed At Patho logist Time Signature Rheumatoid <15 <=30 IU/mL 06/28/2021 SCIENTOLOGIST Factor, 7:52 PM CDT LABORATORY Quantitative Specimen Anatomical Collection Method / Collection Time Recei giselle Time (Source) Location / Volume Laterality Blood Venipuncture / 06/28/2021 2:27 06/28/2021 2:28 Unknown PM CDT PM CDT Sigmoid Pharmao DO LAB_1 Performing Organization Address City/State/ZIP Code Phon e Number [facility] [address] [place] [address] Anti-CCP Antibody (06/28/2021 2:27 PM CDT) [facility] Method Time Signature Anti-CCP Antibody 1 <7 U/mL [facility] PM CDT CEN[facility]AL LAB Anti-CCP Antibody Negative Negative 06/29/2021 [facility] E[facility] Interpretation 1:16 PM CDT CENTRAL LAB Specimen Anatomical Collection Method / Collection Time Recei giselle Time (Source) Location / Volume Laterality Blood Venipuncture / 06/28/2021 2:27 06/28/2021 2:28 Unknown PM CDT PM CDT MST DO LAB_1 Performing Organization Address City/[facility] Code Phon e Number [facility] [address] [address] Hepatitis B Surface Antigen (06/28/2021 2:27 PM CDT) [facility] Method Time Signature Hepatitis B Negative Negative 06/28/2021 SCIENTOLOGIST Surface (Non (Non 8:12 PM CDT LABORATORY Antigen Reactive) Reactive) Specimen Anatomical Collection Method / Collection Time Recei giselle Time (Source) Location / Volume Laterality Blood Venipuncture / 06/28/2021 2:27 06/28/2021 2:28 Unknown PM CDT PM CDT MST DO LAB_1 Performing Organization Address City/[facility] Code Phon e Number [facility] [address] [place] [address] HIV 1/2 Ag/Ab 4th Generation (06/28/2021 2:27 PM CDT) [facility] Method Time Signature HIV 1/2 Negative Negative 06/28/2021 SCIENTOLOGIST Antigen/Antib (Non (Non 7:52 PM CDT LABORATORY zachary (4th Reactive) Reactive) generation) Comment: HIV-1 p24 Antigen and HIV-1/HIV -2 Antibody not detected Specimen Anatomical Collection Method / Collection Time Recei giselle Time (Source) Location / Volume Laterality Blood Venipuncture / 06/28/2021 2:27 06/28/2021 2:28 Unknown PM CDT PM CDT [facility] LAB_1 Performing Organization Address [facility]/ZIP Code Phon e Number [facility] [address] [place] [address] Hepatitis C Antibody, with Reflex (06/28/2021 2:27 PM CDT) [facility] Method Time Signature Hepatitis C Negative Negative 06/28/2021 SCIENTOLOGIST Antibody (Non (Non 7:52 PM CDT LABORATORY Reactive) Reactive) Comment: Antibodies to HCV not detected. Does not exclude the possiblity of exposure to HCV. Specimen Anatomical Collection Method / Collection Time Recei giselle Time (Source) Location / Volume Laterality Blood Venipuncture / 06/28/2021 2:27 06/28/2021 2:28 Unknown PM CDT PM CDT [facility] LAB_1 Performing Organization Address [facility] Phon e Number [facility] [address] [place] [address] Liver Panel(Hepatic Function Panel) (06/28/2021 2:27 PM CDT) athologist [facility] Alkaline 70 40 - 150 06/28/2021 [place] Phosphatase U/L 5:11 PM CDT LABORATORY Bilirubin, Total 0.5 0.2 - 1.2 06/28/2021 [place] mg/dL 5:11 PM CDT LABORATORY Bilirubin, 0.2 0.0 - 0.5 06/28/2021 [place] Direct mg/dL 5:11 PM CDT LABORATORY AST (SGOT) 18 10 - 40 06/28/2021 [place] U/L 5:11 PM CDT LABORATORY ALT (SGPT) 21 0 - 55 U/L 06/28/2021 [place] 5:11 PM CDT LABORATORY Protein, Total 6.5 6.4 - 8.3 06/28/2021 [place] g/dL 5:11 PM CDT LABORATORY Albumin 3.9 3.5 - 5.0 06/28/2021 [place] g/dL 5:11 PM CDT LABORATORY Specimen Anatomical Collection Method / Collection Time Recei giselle Time (Source) Location / Volume Laterality Blood Venipuncture / 06/28/2021 2:27 06/28/2021 2:28 Unknown PM CDT PM CDT Lorenza Black DO LAB_1 Performing Organization Address [facility]/ZIP Code Phon e Number [place] [facility] [address] [place], [place] [phone] (ABNORMAL) Creatinine / GFR (06/28/2021 2:27 PM CDT) [facility] gist Method Time Signature Creatinine 0.40 (L) 0.55 - 06/28/2021 [place] 1.02 mg/dL 5:11 PM CDT LABORATORY GFR, Estimated >60 >60 06/28/2021 [place] mL/min/1.7 5:11 PM CDT LABORATORY 3m2 Specimen Anatomical Collection Method / Collection Time Recei giselle Time (Source) Location / Volume Laterality Blood Venipuncture / 06/28/2021 2:27 06/28/2021 2:28 Unknown PM CDT PM CDT Lorenza Black DO LAB_1 Performing Organization Address 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
--- OUTSIDE RECORDS SUMMARY | 2022-09-16 09:03 | XMS_ITS | Encounter Summary ---
:1945 Author Organization [facility] Address [address] [place] [address] Care Team Providers Name Role Phone Flo Mckeon MD Primary Care Provider Reason for Visit Procedure/Equipment (Routine) - Incomplete Specialty Diagnoses / Procedures Referred By Contact Refer red To Contact Diagnoses 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) Lorenza Black DO Procedures XR Shoulder Rt 2+ Views [address] [place], [place] [address] Referral ID Status Reason Start Date Expiration Date Visits V isits Requested Authorized [id number] Incomplete 06/28/2021 09/27/2022 1 1 Encounter Details Date Type Department Care Team Description 06/28/2021 Ancillary [place] Lorenza Black DO Rheumatoid arthritis Procedure Radiology [address] involving multiple [address] [facility] sites with positive [address] [place], [place] [address] (HRC) [id number] Social History Tobacco Use Types Packs/Day Years Used Date Smoking Tobacco: Never Assessed Sex Assigned at Date Recorded Not on file documented as of this encounter Plan of Treatment Upcoming Encounters Date Type Specialty Care Team Description 09/30/2022 Phone Visit Rheumatology Lorenza Black DO [address] [facility] N [address] (Wo rk) documented as of this encounter [...] (HRC) documented in this encounter Care Teams Buffing Machine Operator Semiautomatic Relationship Specialty Start Date End Date Flo Mckeon MD PCP - General 06/21/211999 [place] [address] documented as of this encounter
--- OUTSIDE RECORDS SUMMARY | 2022-09-16 09:03 | XMS_ITS | Encounter Summary ---
:1945 Author Organization [facility] Address [address] [place] [address] Care Team Providers Name Role Phone Flo Mckeon MD Primary Care Provider Reason for Visit Procedure/Equipment (Routine) - Incomplete Specialty Diagnoses / Procedures Referred By Contact Refer red To Contact Diagnoses 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) Lorenza Black DO Procedures XR Hands 1 View Bilat Arthritis [address] [place], [place] [address] Referral ID Status Reason Start Date Expiration Date Visits V isits Requested Authorized [id number] Incomplete 06/28/2021 09/27/2022 1 1 Encounter Details Date Type Department Care Team Description 06/28/2021 Ancillary [place] Lorenza Black DO Rheumatoid arthritis Procedure Radiology [address] involving multiple [address] [facility] sites with positive Drive [place], [place] [address] (HRC) [id number] Social History Tobacco Use Types Packs/Day Years Used Date Smoking Tobacco: Never Assessed Sex Assigned at Date Recorded Not on file documented as of this encounter Plan of Treatment Upcoming Encounters Date Type Specialty Care Team Description 09/30/2022 Phone Visit Rheumatology Lorenza Black DO [address] [facility] N [address] (Wo rk) documented as of this encounter [...] (HRC) documented in this encounter Care Teams Janitor Helper Relationship Specialty Start Date End Date Flo Mckeon MD PCP - General 06/21/211999 [place], [place] [address] documented as of this encounter
--- OUTSIDE RECORDS SUMMARY | 2022-09-16 09:03 | XMS_ITS | Encounter Summary ---
:1945 Author Organization [facility] Address [address], [place] [address] Care Team Providers Name Role Phone Flo Mckeon MD Primary Care Provider Reason for Visit Reason Comments LAB RESULTS Encounter Details Date Type Department Care Team Description 07/02/2021 Telephone [facility] [address] Lorenza Black DO LAB RESULTS Rheumatology [address] 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
--- OUTSIDE RECORDS SUMMARY | 2022-09-16 09:03 | XMS_ITS | Encounter Summary ---
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) Lorenza Black DO Procedures XR Shoulder Rt 2+ Views [address] [place], [place] [address] Referral ID Status Reason Start Date Expiration Date Visits V isits Requested Authorized [id number] Incomplete 06/28/2021 09/27/2022 1 1 Procedure/Equipment (Routine) - Incomplete Specialty Diagnoses / Procedures Referred By Contact Refer red To Contact Diagnoses 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) Lorenza Black DO Procedures XR Hands 1 View Bilat Arthritis [address] [place], [place] [address] Referral ID Status Reason Start Date Expiration Date Visits V isits Requested Authorized [id number] Incomplete 06/28/2021 09/27/2022 1 1 Reason for Visit Reason Comments CONSULT Encounter Details Date Type Department Care Team Description 06/28/2021 Office Visit Lorenza Wolf DO 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 She has been on prednisone 5 mg and then recently 10 mg [id number] Today the patient states that her hands [...] to 6/10. 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 She has tried anti-inflammatories [...] smoked. 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 Exam Gen: NAD, [...] 65 minutes including, but not limited to, [id number] time spent reviewing records, counseling, and coordination of care. documented in this encounter Plan of Treatment Upcoming Encounters Date Type Specialty Care Team Description 09/30/2022 Phone Visit Rheumatology Black, Lorenza Hernández, DO [address] [place] N [address] (Wo rk) documented as of this encounter [...] Edgar Black DO LAB_1 Performing Organization Address City/[facility] Code Phon e Number [facility] [address] [place] [address] Anti-CCP Antibody (06/28/2021 2:27 PM CDT) [facility] Method Time Signature Anti-CCP Antibody 1 [...] Edgar Black DO LAB_1 Performing Organization Address [facility] Phon e Number [facility] [address] [address] Hepatitis B Surface Antigen (06/28/2021 2:27 PM CDT) [facility] Method Time Signature Hepatitis B Negative Negative 06/28/2021 [facility] Surface (Non (Non 8:12 PM CDT LABORATORY Antigen Reactive) Reactive) Specimen Anatomical Collection Method / Collection Time Recei giselle Time (Source) Location / Volume Laterality Blood Venipuncture / 06/28/2021 2:27 06/28/2021 2:28 Unknown PM CDT PM CDT Lorenza Edgar [facility] LAB_1 Performing Organization Address City/[facility]/ZIP Code Phon e Number [facility] [address] [place] [address] HIV 1/2 Ag/Ab 4th Generation (06/28/2021 2:27 PM CDT) [facility] Method Time Signature HIV 1/2 Negative Negative 06/28/2021 [facility] Antigen/Antib (Non (Non 7:52 PM CDT LABORATORY zachary (4th Reactive) Reactive) generation) Comment: HIV-1 p24 Antigen and HIV-1/HIV -2 Antibody not detected Specimen Anatomical Collection Method / Collection Time Recei giselle Time (Source) Location / Volume Laterality Blood Venipuncture / 06/28/2021 2:27 06/28/2021 2:28 Unknown PM CDT PM CDT [facility] LAB_1 Performing Organization Address [facility]/ZIP [facility] Phon e Number [facility] [address] [place] [address] Hepatitis C Antibody, with Reflex (06/28/2021 2:27 PM CDT) [facility] gist Method Time Signature Hepatitis C Negative Negative 06/28/2021 [facility] Antibody (Non (Non 7:52 PM CDT LABORATORY Reactive) Reactive) Comment: Antibodies to HCV not detected. Does not exclude the possiblity of exposure to HCV. Specimen Anatomical Collection Method / Collection Time Recei giselle Time (Source) Location / Volume Laterality Blood Venipuncture / 06/28/2021 2:27 06/28/2021 2:28 Unknown PM CDT PM CDT [facility] LAB_1 Performing Organization Address [facility] e Number [facility] [place] [address] Liver Panel(Hepatic Function Panel) (06/28/2021 2:27 PM CDT) P athologist Signature Alkaline 70 40 - 150 06/28/2021 [place] Phosphatase U/L 5:11 PM CDT LABORATORY Bilirubin, Total 0.5 0.2 - 1.2 06/28/2021 [place] mg/dL 5:11 PM CDT LABORATORY Bilirubin, 0.2 0.0 - 0.5 06/28/2021 [place] Direct mg/dL 5:11 PM CDT LABORATORY AST (SGOT) 18 10 - 40 06/28/2021 [place] U/L 5:11 PM CDT LABORATORY ALT (SGPT) 21 0 - 55 U/L 06/28/2021 [place] 5:11 PM CDT LABORATORY Protein, Total 6.5 6.4 - 8.3 06/28/2021 [place] g/dL 5:11 PM CDT LABORATORY Albumin 3.9 3.5 - 5.0 06/28/2021 [place] g/dL 5:11 PM CDT LABORATORY Specimen Anatomical Collection Method / Collection Time Recei giselle Time (Source) Location / Volume Laterality Blood Venipuncture / 06/28/2021 2:27 06/28/2021 2:28 Unknown PM CDT PM CDT Lorenza Black DO LAB_1 Performing Organization Address [facility]/ZIP Code Phon e [facility] [address] [place], [place] [address] (ABNORMAL) Creatinine / GFR (06/28/2021 2:27 PM CDT) [facility] gist Method Time Signature Creatinine 0.40 (L) 0.55 - 06/28/2021 [place] 1.02 mg/dL 5:11 PM CDT LABORATORY GFR, Estimated >60 >60 06/28/2021 [place] mL/min/1.7 5:11 PM CDT LABORATORY 3m2 Specimen Anatomical Collection Method / Collection Time Recei giselle Time (Source) Location / Volume Laterality Blood Venipuncture / 06/28/2021 2:27 06/28/2021 2:28 Unknown PM CDT PM CDT Lorenza Black DO LAB_1 Performing Organization Address City/[facility]/ZIP Code Phon e [facility] [address] [place], [place] [phone] documented in this encounter Visit Diagnoses Diagnosis 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
--- OUTSIDE RECORDS SUMMARY | 2022-09-16 09:03 | XMS_ITS | Encounter Summary ---
:1945 Author Organization [facility] Address [address], [place] [address] Care Team Providers Name Role Phone Flo Mckeon MD Primary Care Provider Reason for Visit Reason Comments Phone Visit Follow-up Encounter Details Date Type Department Care Team Description 07/31/2021 Phone Visit [place] Lorenza Black DO Rheumatoid arthritis with negative rheum atoid factor, involving unspecified site (HRC) (Primary Dx); Rheumatology [address] [place] [address] Encounter for long-term (cur rent) use of medications [address] [place] [address] [place], [place] [phone] (Wo rk) Social History Tobacco Use Types [...] The patient is located at Home in [facility]. The consulting provider is located in [place], [place]. documented in this encounter Plan of Treatment Upcoming Encounters Date Type Specialty Care Team Description 09/30/2022 Phone Visit Rheumatology Lorenza Black DO [address] [facility] N [address] (Wo rk) documented as of this encounter Visit Diagnoses Diagnosis Rheumatoid arthritis with negative rheum atoid factor, involving unspecified site (HRC) - Primary Encounter for long-term (current) use of medications Encounter for long-term (current) use of other medications documented in this encounter Care Teams Knotter Relationship Specialty Start Date End Date Flo Mckeon MD PCP - General 06/21/211999 [place] [address] documented as of this encounter
--- OUTSIDE RECORDS SUMMARY | 2022-09-16 09:03 | XMS_ITS | Encounter Summary ---
:1945 Author Organization Formerly [facility] Address [address] [place] [address] Care Team Providers Name Role Phone Unassigned, Provider Primary Care Provider Unavailable Encounter Details Date Type Department Care Team Description 10/13/1989 PN Conversion Only FURNACE BRAZER [address] [place] [address] Social History Tobacco Use Types Packs/Day Years Used Date Smoking Tobacco: Never Assessed Sex Assigned at Date Recorded Not on file documented as of this encounter Plan of Treatment Upcoming Encounters Date Type Specialty Care Team Description 09/30/2022 Phone Visit Rheumatology Black, Lorenza Hernández, DO [address] [facility], N [address] (Wo rk) documented as of this encounter Visit Diagnoses Not on filedocumented in this encounter Care Teams Museum Docent Relationship Specialty Start Date End Date Unassigned, Provider PCP - General 07/16/00 06/20/[address] [place] [address] documented as of this encounter
--- OUTSIDE RECORDS SUMMARY | 2022-09-16 09:03 | XMS_ITS | Encounter Summary ---
:1945 Author Organization Formerly [facility] Address [address], [place] [address] Care Team Providers Name Role Phone Flo Mckeon MD Primary Care Provider Reason for Visit Reason Comments Phone Visit Follow-up Encounter Details Date Type Department Care Team Description 09/13/2021 Phone Visit [place] Lorenza Black DO Rheumatoid arthritis, Rheumatology [address] [facility] involving unspecified [address] [facility] site, [place] [address] [place], [place] whether rheumatoid [phone] factor present (HRC) [phone] (Wo rk) (Primary Dx) Social History Tobacco Use Types Packs/Day Years Used Date Smoking Tobacco: Never Assessed Sex Assigned at Date Recorded Not on file documented as of this encounter Progress Notes Lorenza Black DO - 09/13/2021 2:45 PM CST Error ENT SERVICES DIRECTOR documented in this encounter Plan of Treatment Upcoming Encounters Date Type Specialty Care Team Description 09/30/2022 Phone Visit Rheumatology Lorenza Black DO [address] [facility] N [address] (Wo rk) documented as of this encounter Visit Diagnoses Diagnosis Rheumatoid arthritis, involving unspecif ied site, unspecified whether rheumatoid factor present (HRC) - Primary documented in this encounter Care Teams Welt Rougher Relationship Specialty Start Date End Date Flo Mckeon MD PCP - General 06/21/211999 [place] [address] documented as of this encounter
== END 2022-09-16 08:47 | disposition home or self-care (01) ==
LOC: WOUND 08:46
PROVIDERS: PCP Family Medicine; Visit Provider Nurse Practitioner Family
DX: M86.68 Other chronic osteomyelitis, other site (principal); L89.314 Pressure ulcer of right buttock, stage 4; I87.2 Venous insufficiency (chronic) (peripheral); Q82.0 Hereditary lymphedema
CPT/HCPCS: 11042; G0277

== ENCOUNTER 2022-09-23 12:23 | Outpatient (CLI) | payer OTHER, SELFPAY ==
--- OUTSIDE RECORDS SUMMARY | 2022-09-23 12:26 | XMS_ITS | Encounter Summary ---
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) Lorenza Black DO Procedures XR Shoulder Rt 2+ Views [address] [place], [place] [address] Referral ID Status Reason Start Date Expiration Date Visits V isits Requested Authorized [id number] Incomplete 06/28/2021 09/27/2022 1 1 Procedure/Equipment (Routine) - Incomplete Specialty Diagnoses / Procedures Referred By Contact Refer red To Contact Diagnoses 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) Lorenza Black DO Procedures XR Hands 1 View Bilat Arthritis [address] [place], [place] [address] Referral ID Status Reason Start Date Expiration Date Visits V isits Requested Authorized [id number] Incomplete 06/28/2021 09/27/2022 1 1 Reason for Visit Reason Comments CONSULT Encounter Details Date Type Department Care Team Description 06/28/2021 Office Visit Lorenza Wolf DO 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 She has been on prednisone 5 mg and then recently 10 mg [id number] Today the patient states that her hands [...] to 6/10. She laments the inability to hand picker her grandchildren. She has tried anti-inflammatories [...] smoked. 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 documented in this encounter Plan of Treatment Upcoming Encounters Date Type Specialty Care Team Description 09/30/2022 Phone Visit Rheumatology Black, Lorenza Hernández, DO [address] [place] [address] (Wo rk) documented as of this encounter [...] Time Signature Rheumatoid <15 <=30 IU/mL 06/28/2021 [facility] Factor, 7:52 PM CDT LABORATORY Quantitative Specimen Anatomical Collection Method / Collection Time Recei giselle Time (Source) Location / Volume Laterality Blood Venipuncture / 06/28/2021 2:27 06/28/2021 2:28 Unknown PM CDT PM CDT Lorenza Edgar Black DO LAB_1 Performing Organization Address City/[facility] Code Phon e Number [facility] [address] [place] [address] Anti-CCP Antibody (06/28/2021 2:27 PM CDT) [facility] Method Time Signature Anti-CCP Antibody 1 [...] Edgar Black DO LAB_1 Performing Organization Address [facility] Phon e Number [facility] [address] [address] Hepatitis B Surface Antigen (06/28/2021 2:27 PM CDT) [facility] Method Time Signature Hepatitis B Negative Negative 06/28/2021 [facility] Surface (Non (Non 8:12 PM CDT LABORATORY Antigen Reactive) Reactive) Specimen Anatomical Collection Method / Collection Time Recei giselle Time (Source) Location / Volume Laterality Blood Venipuncture / 06/28/2021 2:27 06/28/2021 2:28 Unknown PM CDT PM CDT Lorenza Edgar [facility] LAB_1 Performing Organization Address City/[facility]/ZIP Code Phon e Number [facility] [address] [place] [address] HIV 1/2 Ag/Ab 4th Generation (06/28/2021 2:27 PM CDT) [facility] Method Time Signature HIV 1/2 Negative Negative 06/28/2021 [facility] Antigen/Antib (Non (Non 7:52 PM CDT LABORATORY zachary (4th Reactive) Reactive) generation) Comment: HIV-1 p24 Antigen and HIV-1/HIV -2 Antibody not detected Specimen Anatomical Collection Method / Collection Time Recei giselle Time (Source) Location / Volume Laterality Blood Venipuncture / 06/28/2021 2:27 06/28/2021 2:28 Unknown PM CDT PM CDT [facility] LAB_1 Performing Organization Address [facility]/ZIP [facility] Phon e Number [facility] [address] [place] [address] Hepatitis C Antibody, with Reflex (06/28/2021 2:27 PM CDT) [facility] gist Method Time Signature Hepatitis C Negative Negative 06/28/2021 [facility] Antibody (Non (Non 7:52 PM CDT LABORATORY Reactive) Reactive) Comment: Antibodies to HCV not detected. Does not exclude the possiblity of exposure to HCV. Specimen Anatomical Collection Method / Collection Time Recei giselle Time (Source) Location / Volume Laterality Blood Venipuncture / 06/28/2021 2:27 06/28/2021 2:28 Unknown PM CDT PM CDT [facility] LAB_1 Performing Organization Address [facility] e Number [facility] [place] [address] Liver Panel(Hepatic Function Panel) (06/28/2021 2:27 PM CDT) P athologist Signature Alkaline 70 40 - 150 06/28/2021 [place] Phosphatase U/L 5:11 PM CDT LABORATORY Bilirubin, Total 0.5 0.2 - 1.2 06/28/2021 [place] mg/dL 5:11 PM CDT LABORATORY Bilirubin, 0.2 0.0 - 0.5 06/28/2021 [place] Direct mg/dL 5:11 PM CDT LABORATORY AST (SGOT) 18 10 - 40 06/28/2021 [place] U/L 5:11 PM CDT LABORATORY ALT (SGPT) 21 0 - 55 U/L 06/28/2021 [place] 5:11 PM CDT LABORATORY Protein, Total 6.5 6.4 - 8.3 06/28/2021 [place] g/dL 5:11 PM CDT LABORATORY Albumin 3.9 3.5 - 5.0 06/28/2021 [place] g/dL 5:11 PM CDT LABORATORY Specimen Anatomical Collection Method / Collection Time Recei giselle Time (Source) Location / Volume Laterality Blood Venipuncture / 06/28/2021 2:27 06/28/2021 2:28 Unknown PM CDT PM CDT Lorenza Black DO LAB_1 Performing Organization Address [facility]/ZIP Code Phon e [facility] [address] [place], [place] [phone] (ABNORMAL) Creatinine / GFR (06/28/2021 2:27 PM CDT) [facility] gist Method Time Signature Creatinine 0.40 (L) 0.55 - 06/28/2021 [place] 1.02 mg/dL 5:11 PM CDT LABORATORY GFR, Estimated >60 >60 06/28/2021 [place] mL/min/1.7 5:11 PM CDT LABORATORY 3m2 Specimen Anatomical Collection Method / Collection Time Recei giselle Time (Source) Location / Volume Laterality Blood Venipuncture / 06/28/2021 2:27 06/28/2021 2:28 Unknown PM CDT PM CDT Lorenza Black DO LAB_1 Performing Organization Address City/[facility]/ZIP Code Phon e [facility] [address] [place], [place] [phone] documented in this encounter Visit Diagnoses Diagnosis 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
--- OUTSIDE RECORDS SUMMARY | 2022-09-23 12:26 | XMS_ITS | Encounter Summary ---
:1945 Author Organization [facility] Address [address], [place] [address] Care Team Providers Name Role Phone Flo Mckeon MD Primary Care Provider Reason for Visit Reason Comments Phone Visit Follow-up Encounter Details Date Type Department Care Team Description 07/31/2021 Phone Visit [place] Lorenza Black DO Rheumatoid arthritis with negative rheum atoid factor, involving unspecified site (HRC) (Primary Dx); Rheumatology [address] [place] [address] Encounter for long-term (cur rent) use of medications [address] [place] [address] [place], [place] [phone] (Wo rk) Social History Tobacco Use Types Packs/Day Years Used Date Smoking Tobacco: Never Assessed Sex Assigned at Date Recorded Not on file documented as of this encounter Progress Notes Lorenza Blakc DO - 07/31/2021 2:45 PM CDT Rheumatology [...] The patient is located at Home in [facility]. The consulting provider is located in [place], [place]. documented in this encounter Plan of Treatment Upcoming Encounters Date Type Specialty Care Team Description 09/30/2022 Phone Visit Rheumatology Lorenza Black DO [address] [facility] N [address] (Wo rk) documented as of this encounter Visit Diagnoses Diagnosis Rheumatoid arthritis with negative rheum atoid factor, involving unspecified site (HRC) - Primary Encounter for long-term (current) use of medications Encounter for long-term (current) use of other medications documented in this encounter Care Teams Support Team Assoc Relationship Specialty Start Date End Date Flo Mckeon MD PCP - General 06/21/211999 [place] [address] documented as of this encounter
--- OUTSIDE RECORDS SUMMARY | 2022-09-23 12:26 | XMS_ITS | Encounter Summary ---
:1945 Author Organization [facility]ly [facility] Address [address] [place] [address] Care Team Providers Name Role Phone Unassigned, Provider Primary Care Provider Unavailable Encounter Details Date Type Department Care Team Description 10/13/1989 PN Conversion Only CREDIT CONTROL MANAGER [address] [place] [address] Social History Tobacco Use Types Packs/Day Years Used Date Smoking Tobacco: Never Assessed Sex Assigned at Date Recorded Not on file documented as of this encounter Plan of Treatment Upcoming Encounters Date Type Specialty Care Team Description 09/30/2022 Phone Visit Rheumatology Black, Lorenza Hernández, DO [address] [facility], N [phone] (Wo rk) documented as of this encounter Visit Diagnoses Not on filedocumented in this encounter Care Teams Superintendent Commissary Relationship Specialty Start Date End Date Unassigned, Provider PCP - General 07/16/00 06/20/[address] [place] [address] documented as of this encounter
--- OUTSIDE RECORDS SUMMARY | 2022-09-23 12:26 | XMS_ITS | Encounter Summary ---
:1945 Author Organization [facility] Address [address] [place] [address] Care Team Providers Name Role Phone Flo Mckeon MD Primary Care Provider Encounter Details Date Type Department Care Team Description 06/28/2021 Lab Visit [facility] Rheumatoid arthritis [address] [place] [address] with positive rheumatoid [phone] factor (HRC) Social History Tobacco Use Types Packs/Day Years Used Date Smoking Tobacco: Never Assessed Sex Assigned at Date Recorded Not on file documented as of this encounter Plan of Treatment Upcoming Encounters Date Type Specialty Care Team Description 09/30/2022 Phone Visit Rheumatology Black, Lorenza Hernández, DO [address] [facility] [place] [address] [address] (Wo rk) documented as of this encounter [...] CDT) athologist Signature MITOGEN >10.000 IU/mL 07/02/2021 [facility] 8:53 AM CDT LABORATORY Specimen Anatomical Collection Method / Collection Time Recei giselle Time (Source) Location / Volume Laterality Blood Venipuncture / 06/28/2021 2:28 06/28/2021 2:28 Unknown PM CDT PM CDT Lorenza Hernández Black DO LAB_1 Performing Organization Address [facility] Phon e Number [facility] [address] [place] [address] TB QuantiFERON Gold Plus TB2 (06/28/2021 2:28 PM CDT) athologist Signature TB2 0.081 IU/mL 07/02/2021 [facility] 8:53 AM CDT LABORATORY Specimen Anatomical Collection Method / Collection Time Recei giselle Time (Source) Location / Volume Laterality Blood Venipuncture / 06/28/2021 2:28 06/28/2021 2:28 Unknown PM CDT PM CDT Lorenza Hernández Black DO LAB_1 Performing Organization Address [facility] Phon e Number [facility] [address] [place] [address] TB QuantiFERON Gold Plus TB1 (06/28/2021 2:28 PM CDT) athologist Signature TB1 0.094 IU/mL 07/02/2021 [facility] 8:54 AM CDT LABORATORY Specimen Anatomical Collection Method / Collection Time Recei giselle Time (Source) Location / Volume Laterality Blood Venipuncture / 06/28/2021 2:28 06/28/2021 2:28 Unknown PM CDT PM CDT Lorenza Hernández Black DO LAB_1 Performing Organization Address City/[facility] Phon e Number [facility] [address] [place] [address] TB QuantiFERON Gold Plus NIL (06/28/2021 2:28 PM CDT) [facility] gist Method Time Signature 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 NIL 0.024 IU/mL 07/02/2021 [facility] 8:54 AM LABORATORY CDT TB1-NIL 0.07 IU/mL 07/02/2021 [facility] 8:54 AM LABORATORY CDT TB2-NIL 0.06 IU/mL 07/02/2021 [facility] 8:54 AM LABORATORY CDT Mitogen-NIL 9.98 IU/mL 07/02/2021 [facility] 8:54 AM LABORATORY CDT Specimen Anatomical Collection Method / Collection Time Recei giselle Time (Source) Location / Volume Laterality Blood Venipuncture / 06/28/2021 2:28 06/28/2021 2:28 Unknown PM CDT PM CDT Narrative [facility] - 07/02/2021 8:54 A M CDT [...] Organization Address City/State/ZIP Code Phon e Number [facility] [address] [place] [address] (ABNORMAL) Complete Blood Count-W/Diff (06/28/2021 2:28 PM CDT) [facility] gist Method Time Signature WBC 12.1 (H) 3.5 - 10.5 06/28/2021 [place] x10(9)/L 2:44 PM CDT LABORATORY RBC 5.26 (H) 3.90 - 06/28/2021 [place] 5.03 2:44 PM CDT LABORATORY x10(12)/L Hemoglobin 15.2 12.0 - 06/28/2021 [place] 15.5 g/dL 2:44 PM CDT LABORATORY HCT 48.5 (H) 34.9 - 06/28/2021 [facility] 44.5 % 2:44 PM CDT LABORATORY MCV 92.2 80.0 - 06/28/2021 [place] 100.0 fL 2:44 PM CDT LABORATORY MCH 28.9 27.6 - 06/28/2021 [place] 33.3 pg 2:44 PM CDT LABORATORY MCHC 31.3 (L) 31.5 - 06/28/2021 [place] 35.2 g/dL 2:44 PM CDT LABORATORY RDW 13.8 11.9 - 06/28/2021 [place] 15.5 % 2:44 PM CDT LABORATORY Platelets 307 150 - 450 06/28/2021 [place] x10(9)/L 2:44 PM CDT LABORATORY Automated NRBC 0 <=0 /100 06/28/2021 [place] WBC 2:44 PM CDT LABORATORY Neutrophil 10.8 (H) 1.7 - 7.0 06/28/2021 [place] Absolute 10(9)/L 2:44 PM CDT LABORATORY Lymphocyte 0.9 (L) 1.0 - 4.8 06/28/2021 [place] Absolute 10(9)/L 2:44 PM CDT LABORATORY Monocytes 0.3 0.2 - 0.9 06/28/2021 [place] Absolute 10(9)/L 2:44 PM CDT LABORATORY Eosinophil 0.0 0.0 - 0.5 06/28/2021 [place] Absolute 10(9)/L 2:44 PM CDT LABORATORY Basophil 0.0 0.0 - 0.3 06/28/2021 [place] Absolute 10(9)/L 2:44 PM CDT LABORATORY Immature Gran % 0.7 (H) 0.0 - 0.5 06/28/2021 [place] % 2:44 PM CDT LABORATORY Specimen Anatomical Collection Method / Collection Time Recei giselle Time (Source) Location / Volume Laterality Blood Venipuncture / 06/28/2021 2:28 06/28/2021 2:28 Unknown PM CDT PM CDT [employer] DO LAB_1 Performing Organization Address City/[facility]/ZIP Code Phon e Number [facility] [address] [place] [address] Rheumatoid Factor, Quant (06/28/2021 2:27 PM CDT) Analysis Performed At Patho logist Time Signature Rheumatoid <15 <=30 IU/mL 06/28/2021 [facility] Factor, 7:52 PM CDT LABORATORY Quantitative Specimen Anatomical Collection Method / Collection Time Recei giselle Time (Source) Location / Volume Laterality Blood Venipuncture / 06/28/2021 2:27 06/28/2021 2:28 Unknown PM CDT PM CDT [employer] DO LAB_1 Performing Organization Address City/State/ZIP Code Phon e Number [facility] [address] [place] [address] Anti-CCP Antibody (06/28/2021 2:27 PM CDT) [facility] Method Time Signature Anti-CCP Antibody 1 <7 U/mL 06/29/2021 [facility] PM CDT C[facility]AL LAB Anti-CCP Antibody Negative Negative 06/29/2021 [facility] Interpretation 1:16 PM CDT CENTRAL LAB Specimen Anatomical Collection Method / Collection Time Recei giselle Time (Source) Location / Volume Laterality Blood Venipuncture / 06/28/2021 2:27 06/28/2021 2:28 Unknown PM CDT PM CDT [employer] DO LAB_1 Performing Organization Address City/[facility] Code Phon e Number [facility] [address] [address] Hepatitis B Surface Antigen (06/28/2021 2:27 PM CDT) [facility] Method Time Signature Hepatitis B Negative Negative 06/28/2021 [facility] Surface (Non (Non 8:12 PM CDT LABORATORY Antigen Reactive) Reactive) Specimen Anatomical Collection Method / Collection Time Recei giselle Time (Source) Location / Volume Laterality Blood Venipuncture / 06/28/2021 2:27 06/28/2021 2:28 Unknown PM CDT PM CDT [employer] DO LAB_1 Performing Organization Address City/[facility] Code Phon e Number [facility] [address] [place] [address] HIV 1/2 Ag/Ab 4th Generation (06/28/2021 2:27 PM CDT) [facility] Method Time Signature HIV 1/2 Negative Negative 06/28/2021 [facility] Antigen/Antib (Non (Non 7:52 PM CDT LABORATORY zachary (4th Reactive) Reactive) generation) Comment: HIV-1 p24 Antigen and HIV-1/HIV -2 Antibody not detected Specimen Anatomical Collection Method / Collection Time Recei giselle Time (Source) Location / Volume Laterality Blood Venipuncture / 06/28/2021 2:27 06/28/2021 2:28 Unknown PM CDT PM CDT [facility] LAB_1 Performing Organization Address [facility]/ZIP Code Phon e Number [facility] [address] [place] [address] Hepatitis C Antibody, with Reflex (06/28/2021 2:27 PM CDT) [facility] Method Time Signature Hepatitis C Negative Negative 06/28/2021 [facility] Antibody (Non (Non 7:52 PM CDT LABORATORY Reactive) Reactive) Comment: Antibodies to HCV not detected. Does not exclude the possiblity of exposure to HCV. Specimen Anatomical Collection Method / Collection Time Recei giselle Time (Source) Location / Volume Laterality Blood Venipuncture / 06/28/2021 2:27 06/28/2021 2:28 Unknown PM CDT PM CDT [facility] LAB_1 Performing Organization Address [facility] Phon e Number [facility] [address] [place] [address] Liver Panel(Hepatic Function Panel) (06/28/2021 2:27 PM CDT) athologist [facility] Alkaline 70 40 - 150 06/28/2021 [facility] Phosphatase U/L 5:11 PM CDT LABORATORY Bilirubin, Total 0.5 0.2 - 1.2 06/28/2021 [place] mg/dL 5:11 PM CDT LABORATORY Bilirubin, 0.2 0.0 - 0.5 06/28/2021 [place] Direct mg/dL 5:11 PM CDT LABORATORY AST (SGOT) 18 10 - 40 06/28/2021 [place] U/L 5:11 PM CDT LABORATORY ALT (SGPT) 21 0 - 55 U/L 06/28/2021 [place] 5:11 PM CDT LABORATORY Protein, Total 6.5 6.4 - 8.3 06/28/2021 [place] g/dL 5:11 PM CDT LABORATORY Albumin 3.9 3.5 - 5.0 06/28/2021 [place] g/dL 5:11 PM CDT LABORATORY Specimen Anatomical Collection Method / Collection Time Recei giselle Time (Source) Location / Volume Laterality Blood Venipuncture / 06/28/2021 2:27 06/28/2021 2:28 Unknown PM CDT PM CDT Lorenza Black DO LAB_1 Performing Organization Address [facility]/ZIP Code Phon e Number [facility] [address] [place], [place] [phone] (ABNORMAL) Creatinine / GFR (06/28/2021 2:27 PM CDT) [facility] gist Method Time Signature Creatinine 0.40 (L) 0.55 - 06/28/2021 [facility] 1.02 mg/dL 5:11 PM CDT LABORATORY GFR, Estimated >60 >60 06/28/2021 [place] mL/min/1.7 5:11 PM CDT LABORATORY 3m2 Specimen Anatomical Collection Method / Collection Time Recei giselle Time (Source) Location / Volume Laterality Blood Venipuncture / 06/28/2021 2:27 06/28/2021 2:28 Unknown PM CDT PM CDT Lorenza Black DO LAB_1 Performing Organization Address [facility]/ZIP Code Phon e Number [facility] [address] [place] [address] documented in this encounter Visit Diagnoses Diagnosis 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
--- OUTSIDE RECORDS SUMMARY | 2022-09-23 12:26 | XMS_ITS | Encounter Summary ---
:1945 Author Organization [facility] Address [address], [place] [address] Care Team Providers Name Role Phone Flo Mckeon MD Primary Care Provider Reason for Visit Reason Comments Phone Visit Follow-up Encounter Details Date Type Department Care Team Description 09/13/2021 Phone Visit [place] Lorenza Black DO Rheumatoid arthritis, Rheumatology [address] [facility] involving unspecified [address] [facility] site, [place] [address] [place], [place] whether rheumatoid [phone] factor present (HRC) [phone] (Wo rk) (Primary Dx) Social History Tobacco Use Types Packs/Day Years Used Date Smoking Tobacco: Never Assessed Sex Assigned at Date Recorded Not on file documented as of this encounter Progress Notes Lorenza Black DO - 09/13/2021 2:45 PM CST Error ACCESS documented in this encounter Plan of Treatment Upcoming Encounters Date Type Specialty Care Team Description 09/30/2022 Phone Visit Rheumatology Lorenza Black DO 38[address] [facility] N [address] (Wo rk) documented as of this encounter Visit Diagnoses Diagnosis Rheumatoid arthritis, involving unspecif ied site, unspecified whether rheumatoid factor present (HRC) - Primary documented in this encounter Care Teams Hat Lining Blocker Relationship Specialty Start Date End Date Flo Mckeon MD PCP - General 06/21/211999 [place] [address] documented as of this encounter
--- OUTSIDE RECORDS SUMMARY | 2022-09-23 12:26 | XMS_ITS | Encounter Summary ---
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) Lorenza Black DO Procedures XR Hands 1 View Bilat Arthritis 3800 [place], [place] [address] Referral ID Status Reason Start Date Expiration Date Visits V isits Requested Authorized [id number] Incomplete 06/28/2021 09/27/2022 1 1 Encounter Details Date Type Department Care Team Description 06/28/2021 Ancillary [place] Lorenza Black DO Rheumatoid arthritis Procedure Radiology [address] involving multiple [address] [facility] sites with positive [address] [place], [place] [address] (HRC) [id number] Social History Tobacco Use Types Packs/Day Years Used Date Smoking Tobacco: Never Assessed Sex Assigned at Date Recorded Not on file documented as of this encounter Plan of Treatment Upcoming Encounters Date Type Specialty Care Team Description 09/30/2022 Phone Visit Rheumatology Lorenza Black DO 38[address] [facility] N [address] (Wo rk) documented as of this encounter [...] (HRC) documented in this encounter Care Teams Insurance Service Representative Relationship Specialty Start Date End Date Flo Mckeon MD PCP - General 06/21/211999 [place], [place] 6246857 documented as of this encounter
--- OUTSIDE RECORDS SUMMARY | 2022-09-23 12:26 | XMS_ITS | Encounter Summary ---
:1945 [facility] Address [address] [place] [address] Care Team Providers Name Role Phone Flo Mckeon MD Primary Care Provider Encounter Details Date Type Department Care Team Description 08/20/2022 Notes/Orders [facility] 3800 Lorenza Black DO Rheumatology [address] [place] [address] [place] [address] [phone] Social History Tobacco Use Types Packs/Day Years Used Date Smoking Tobacco: Never Assessed Sex Assigned at Date Recorded Not on file documented as of this encounter Progress Notes Akiko Vega LPN - 08/20/2022 11:12 AM CST Infusion order faxed to [facility]. [phone] FILTERS INSPECTOR documented in this encounter Plan of Treatment Upcoming Encounters Date Type Specialty Care Team Description 09/30/2022 Phone Visit Rheumatology Lorenza Black DO [address] [facility] N [address] (Wo rk) documented as of this encounter Visit Diagnoses Not on filedocumented in this encounter Care Teams Crop Duster Helper Relationship Specialty Start Date End Date Flo Mckeon MD PCP - General 06/21/211999 [place] [address] documented as of this encounter
--- OUTSIDE RECORDS SUMMARY | 2022-09-23 12:26 | XMS_ITS | Encounter Summary ---
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) Lorenza Black DO Procedures XR Shoulder Rt 2+ Views [address] [place], [place] [address] Referral ID Status Reason Start Date Expiration Date Visits V isits Requested Authorized [id number] Incomplete 06/28/2021 09/27/2022 1 1 Encounter Details Date Type Department Care Team Description 06/28/2021 Ancillary [place] Lorenza Black DO Rheumatoid arthritis Procedure Radiology [address] [place] involving multiple [address] [facility] sites with positive Drive [place], [place] [address] (HRC) [id number] Social History Tobacco Use Types Packs/Day Years Used Date Smoking Tobacco: Never Assessed Sex Assigned at Date Recorded Not on file documented as of this encounter Plan of Treatment Upcoming Encounters Date Type Specialty Care Team Description 09/30/2022 Phone Visit Rheumatology Lorenza Black DO 3800 [facility] N [address] (Wo rk) documented as of this encounter [...] (HRC) documented in this encounter Care Teams Molder Pipe Covering Relationship Specialty Start Date End Date Flo Mckeon MD PCP - General 06/21/211999 [place] [address] documented as of this encounter
--- OUTSIDE RECORDS SUMMARY | 2022-09-23 12:26 | XMS_ITS | Clinical Summary ---
:1945 Author Organization [facility] Address [address] [address] Care Team Providers Name Role Phone Flo [...] for each transition of care or referral. [employer] Medications Medication Sig Dispensed Refills Start Date [...] tablet needed pseudoephedrine Daily 0 Acti ve ([id number]) 120 MG 12 hour release tablet calcium [...] Rheumatology Lorenza Black DO [address] [facility] N [address] (Wo rk) Health Maintenance Due Date Last [...] Phone Addre ss Type Group ANA COSTA [id number] 2019-Present [phone] [address] Medicare MEDICARE 2 [place], [facility] [id number] Pedrito, Personal/Family Self 1945 [address] (Home) [place] [address] Care Teams Communication Assistant Relationship Specialty Start Date End Date Flo Mckeon MD PCP - General 06/21/211999 [place] [address]
--- OUTSIDE RECORDS SUMMARY | 2022-09-23 12:26 | XMS_ITS | Encounter Summary ---
:1945 Author Organization [facility] Address [address] [place] [address] Care Team Providers Name Role Phone Flo Mckeon MD Primary Care Provider Encounter Details Date Type Department Care Team Description 08/28/2022 Telephone [facility] 3800 Padmini Baugh MD Rheumatology [address] [place] [facility] [address] [place] [phone] (Wo rk) Social History Tobacco Use Types Packs/Day Years Used Date Smoking Tobacco: Never Assessed Sex Assigned at Date Recorded Not on file documented as of this encounter Nursing Notes Vickie Alejandro LPN - 08/28/2022 2:57 PM CST A user error has taken place: encounter opened in error, closed for administrative reasons. TRONICS TECHNOLOGY INSTRUCTOR documented in this encounter Plan of Treatment Upcoming Encounters Date Type Specialty Care Team Description 09/30/2022 Phone Visit Rheumatology Black, Lorenza Hernández, DO [address] [facility] N [address] (Wo rk) documented as of this encounter Visit Diagnoses Not on filedocumented in this encounter Care Teams Hardboard Supervisor Relationship Specialty Start Date End Date Flo Mckeon MD PCP - General 06/21/211999 [place] [address] documented as of this encounter
--- OUTSIDE RECORDS SUMMARY | 2022-09-23 12:26 | XMS_ITS | Encounter Summary ---
:1945 Author Organization [facility] Address [address] [place] [address] Care Team Providers Name Role Phone Flo Mckeon MD Primary Care Provider Reason for Visit Reason Comments Refill Encounter Details Date Type Department Care Team Description 06/13/2022 Refill [facility] 3800 Lorenza Black DO Refill Rheumatology [address] [place] [address] [place], [place] [address] [phone] Social History Tobacco Use Types Packs/Day Years [...] Rheumatology Lorenza Black DO [address] [facility] N [address] (Wo rk) documented as of this encounter Visit Diagnoses Diagnosis Rheumatoid arthritis with negative rheum atoid factor, involving unspecified site (HRC) Encounter for long-term (current) use of medications Encounter for long-term (current) use of other medications documented in this encounter Care Teams Structural Shop Helper Relationship Specialty Start Date End Date Flo Mckeon MD PCP - General 06/21/211999 [place] [address] documented as of this encounter
--- OUTSIDE RECORDS SUMMARY | 2022-09-23 12:26 | XMS_ITS | Encounter Summary ---
:1945 Author Organization [facility] Address [address], [place] [address] Care Team Providers Name Role Phone Flo Mckeon MD Primary Care Provider Reason for Visit Reason Comments LAB RESULTS Encounter Details Date Type Department Care Team Description 07/02/2021 Telephone [facility] 3800 Lorenza Black DO LAB RESULTS Rheumatology [address] [place] [address] [place] [address] [phone] Social History Tobacco Use Types Packs/Day Years [...] Phone Visit Rheumatology Black, Lorenza Q, DO [address] [facility] [place] N [address] (Wo rk) documented as of this encounter Visit Diagnoses Diagnosis Rheumatoid arthritis with negative rheum atoid factor, involving unspecified site (HRC) - Primary Encounter for long-term (current) use of medications Encounter for long-term (current) use of other medications documented in this encounter Care Teams Delivery And Mail Sorter Relationship Specialty Start Date End Date Flo Mckeon MD PCP - General 06/21/211999 [place] [address] documented as of this encounter
--- OUTSIDE RECORDS SUMMARY | 2022-09-23 12:26 | XMS_ITS | Clinical Summary ---
:1945 Author Organization [facility] [place] [address] Care Team Providers Name Role Phone Kallie Tamayo COAL HANDLING SUPERVISOR Unavailable [facility] Unavailable Flo Mckeon MD Primary [...] Addre ss Type Group MEDICARE PPS MEDICARE [id number] 2011-Presen [address] [place] [address] [employer] Setup [id number] 2019-Presen [address] [place] [address] (Work) [phone] Josh Major Personal/Famil Self 1945 [address] [facility] vance yBrd y (Home) [place], [place] [phone] (Work) Care Teams Displayer Relationship Specialty Start Date End Date Flo Mckeon MD PCP - General Family Practice 10/04/211999 [place] [address] Kallie Tamayo, FROILAN [facility] 01/17/[address] [id number] [facility] 01/29/14 2925 [facility] [address] [place] [address]
--- OUTSIDE RECORDS SUMMARY | 2022-09-23 12:26 | XMS_ITS | Encounter Summary ---
:1945 Author Organization [facility] Address [address], [place] [address] Care Team Providers Name Role Phone Flo Mckeon MD Primary Care Provider Reason for Visit Reason Comments Refill Encounter Details Date Type Department Care Team Description 12/12/[address] [facility] 38[address] Lorenza Black, Refill Rheumatology [address] [place] [address] [place] [address] [phone] Social History Tobacco Use Types Packs/Day Years Used Date Smoking Tobacco: Never Assessed Sex Assigned at Date Recorded Not on file documented as of this encounter Nursing Notes Akiko Vega LPN - 12/12/2021 12:22 PM CST Left message informing patient. AND DETONATOR Mercy Roman PA-C - 12/12/2021 12:18 PM [...] with Dr. Black as soon as possible. AND DETONATOR documented in this encounter Plan of Treatment Upcoming Encounters Date Type Specialty Care Team Description 09/30/2022 Phone Visit Rheumatology Sofia, Lorenza Hernández, DO [address] [facility] [place] N [address] (Wo rk) documented as of this encounter Visit Diagnoses Not on filedocumented in this encounter Care Teams Well Digger Relationship Specialty Start Date End Date Flo Mckeon MD PCP - General 06/21/211999 [place] [address] documented as of this encounter
--- OUTSIDE RECORDS SUMMARY | 2022-09-23 12:26 | XMS_ITS | Encounter Summary ---
:1945 Author Organization [facility] Address [address], [place] [address] Care Team Providers Name Role Phone Flo Mckeon MD Primary Care Provider Encounter Details Date Type Department Care Team Description 08/19/2022 Phone Visit [facility] 3800 Lorenza Black DO Rheumatoid arthritis with negative rheum atoid factor, involving unspecified site (HRC) (Primary Dx); Rheumatology [address] [place] [address] Encounter for long-term (cur rent) use of medications [address] [place] [address] [place] [address] [phone] Social History Tobacco Use Types Packs/Day Years [...] coccyx. She has difficulty traveling in from [facility] to anyone of our clinics. The [...] we can get orders sent over to [facility] to have her get the rituximab there instead of at our [facility] location. This will aid her [...] is located at home in the state [facility]. The consulting provider is located in [place], [place]. US CLERK documented in this encounter Plan of Treatment Upcoming Encounters Date Type Specialty Care Team Description 09/30/2022 Phone Visit Rheumatology Lorenza Black DO [address] [facility] N [address] (Wo rk) documented as of this encounter Visit Diagnoses Diagnosis Rheumatoid arthritis with negative rheum atoid factor, involving unspecified site (HRC) - Primary Encounter for long-term (current) use of medications Encounter for long-term (current) use of other medications documented in this encounter Care Teams Crawler Crane Operator Relationship Specialty Start Date End Date Flo Mckeon MD PCP - General 06/21/211999 [place] [address] documented as of this encounter
== END 2022-09-23 12:24 | disposition home or self-care (01) ==
LOC: WOUND 12:23
PROVIDERS: PCP Family Medicine; Visit Provider Nurse Practitioner Family
DX: M86.68 Other chronic osteomyelitis, other site (principal); L89.314 Pressure ulcer of right buttock, stage 4; Q82.0 Hereditary lymphedema
CPT/HCPCS: 99213; G0277

== ENCOUNTER 2022-09-24 08:48 | Outpatient (CLI) | payer OTHER, SELFPAY ==
--- OUTSIDE RECORDS SUMMARY | 2022-09-24 09:03 | XMS_ITS | Clinical Summary ---
:1945 Author Organization [email or web address] Address [address], [place] [address] Care Team Providers Name Role Phone Flo [...] for each transition of care or referral. [employer] Medications Medication Sig Dispensed Refills Start Date [...] tablet needed pseudoephedrine Daily 0 Acti ve ([id number]) 120 MG 12 hour release tablet calcium [...] Rheumatology Lorenza Black DO [address] [facility] N [address] (Wo rk) Health Maintenance Due Date Last [...] Phone Addre ss Type Group ANA COSTA [id number] 2019-Present [phone] [id number] Medicare MEDICARE 2 [place] [phone] Pedrito, Personal/Family Self [address] (Home) [place] [address] Care Teams Horse Show Judge Relationship Specialty Start Date End Date Flo Mckeon MD PCP - General 06/21/211999 [place] [address]
--- OUTSIDE RECORDS SUMMARY | 2022-09-24 09:04 | XMS_ITS | Encounter Summary ---
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) Lorenza Black DO Procedures XR Hands 1 View Bilat Arthritis [address] [place], [place] [address] Referral ID Status Reason Start Date Expiration Date Visits V isits Requested Authorized [id number] Incomplete 06/28/2021 09/27/2022 1 1 Encounter Details Date Type Department Care Team Description 06/28/2021 Ancillary [place] Lorenza Black DO Rheumatoid arthritis Procedure Radiology [address] involving multiple [address] [facility] sites with positive Drive [place], [place] [address] (HRC) [id number] Social History Tobacco Use Types Packs/Day Years Used Date Smoking Tobacco: Never Assessed Sex Assigned at Date Recorded Not on file documented as of this encounter Plan of Treatment Upcoming Encounters Date Type Specialty Care Team Description 09/30/2022 Phone Visit Rheumatology Lorenza Black DO 38[address] [facility] N [address] (Wo rk) documented as of this encounter [...] (HRC) documented in this encounter Care Teams Land Classifier Relationship Specialty Start Date End Date Flo Mckeon MD PCP - General 06/21/211999 [place], [place] [id number] documented as of this encounter
--- OUTSIDE RECORDS SUMMARY | 2022-09-24 09:04 | XMS_ITS | Encounter Summary ---
:1945 Author Organization [facility] Address [address] [place] [address] Care Team Providers Name Role Phone Flo Mckeon MD Primary Care Provider Encounter Details Date Type Department Care Team Description 08/20/2022 Notes/Orders [facility] 3800 Lorenza Black DO Rheumatology [address] [place] [address] [place] [address] [phone] Social History Tobacco Use Types Packs/Day Years Used Date Smoking Tobacco: Never Assessed Sex Assigned at Date Recorded Not on file documented as of this encounter Progress Notes Akiko Vega LPN - 08/20/2022 11:12 AM CST Infusion order faxed to [facility]. [phone] LIBRARIAN documented in this encounter Plan of Treatment Upcoming Encounters Date Type Specialty Care Team Description 09/30/2022 Phone Visit Rheumatology Lorenza Black DO [address] [facility] N [address] (Wo rk) documented as of this encounter Visit Diagnoses Not on filedocumented in this encounter Care Teams Digital Cartographer Relationship Specialty Start Date End Date Flo Mckeon MD PCP - General 06/21/211999 [place] [address] documented as of this encounter
--- OUTSIDE RECORDS SUMMARY | 2022-09-24 09:04 | XMS_ITS | Encounter Summary ---
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) Lorenza Black DO Procedures XR Shoulder Rt 2+ Views [address] [place], [place] [address] Referral ID Status Reason Start Date Expiration Date Visits V isits Requested Authorized [id number] Incomplete 06/28/2021 09/27/2022 1 1 Encounter Details Date Type Department Care Team Description 06/28/2021 Ancillary [place] Lorenza Black DO Rheumatoid arthritis Procedure Radiology [address] [place] involving multiple [address] [facility] sites with positive [address] [place], [place] [address] (HRC) [id number] Social History Tobacco Use Types Packs/Day Years Used Date Smoking Tobacco: Never Assessed Sex Assigned at Date Recorded Not on file documented as of this encounter Plan of Treatment Upcoming Encounters Date Type Specialty Care Team Description 09/30/2022 Phone Visit Rheumatology Lorenza Black DO 3800 [facility] N [address] (Wo rk) documented as of this encounter [...] (HRC) documented in this encounter Care Teams Extrusion Supervisor Relationship Specialty Start Date End Date Flo Mckeon MD PCP - General 06/21/211999 [place] [address] documented as of this encounter
--- OUTSIDE RECORDS SUMMARY | 2022-09-24 09:04 | XMS_ITS | Encounter Summary ---
:1945 Author Organization [email or web address] Address [address], [place] [address] Care Team Providers Name Role Phone Flo Mckeon MD Primary Care Provider Reason for Visit Reason Comments Refill Encounter Details Date Type Department Care Team Description 12/12/2021 Refill [facility] 3800 Lorenza Black, Refill Rheumatology [address] [place] [address] [place] [address] [phone] Social History Tobacco Use Types Packs/Day Years Used Date Smoking Tobacco: Never Assessed Sex Assigned at Date Recorded Not on file documented as of this encounter Nursing Notes Akiko Vega LPN - 12/12/2021 12:22 PM CST Left message informing patient. EOTYPER Mercy Roman PA-C - 12/12/2021 12:18 PM [...] with Dr. Black as soon as possible. EOTYPER documented in this encounter Plan of Treatment Upcoming Encounters Date Type Specialty Care Team Description 09/30/2022 Phone Visit Rheumatology Sofia, Lorenza Hernández, DO [address] [facility] [place] N [address] (Wo rk) documented as of this encounter Visit Diagnoses Not on filedocumented in this encounter Care Teams Surgical Pathologist Relationship Specialty Start Date End Date Flo Mckeon MD PCP - General 06/21/211999 [place] [address] documented as of this encounter
--- OUTSIDE RECORDS SUMMARY | 2022-09-24 09:04 | XMS_ITS | Encounter Summary ---
:1945 Author Organization [employer] Address [address] [place] [address] Care Team Providers Name Role Phone Flo Mckeon MD Primary Care Provider Encounter Details Date Type Department Care Team Description 06/28/2021 Lab Visit [facility] Rheumatoid arthritis [id number] [employer] [place] [address] with positive rheumatoid [phone] factor (HRC) Social History Tobacco Use Types Packs/Day Years Used Date Smoking Tobacco: Never Assessed Sex Assigned at Date Recorded Not on file documented as of this encounter Plan of Treatment Upcoming Encounters Date Type Specialty Care Team Description 09/30/2022 Phone Visit Rheumatology Black, Lorenza Hernández, DO [address] [facility] [place] N [address] (Wo rk) documented as of this encounter [...] CDT) athologist Signature MITOGEN >10.000 IU/mL 07/02/2021 [facility] 8:53 AM CDT LABORATORY Specimen Anatomical Collection Method / Collection Time Recei giselle Time (Source) Location / Volume Laterality Blood Venipuncture / 06/28/2021 2:28 06/28/2021 2:28 Unknown PM CDT PM CDT Lorenza Hernández Black DO LAB_1 Performing Organization Address [facility] Phon e Number [facility] [address] [place] [address] TB QuantiFERON Gold Plus TB2 (06/28/2021 2:28 PM CDT) athologist Signature TB2 0.081 IU/mL 07/02/2021 [facility] 8:53 AM CDT LABORATORY Specimen Anatomical Collection Method / Collection Time Recei giselle Time (Source) Location / Volume Laterality Blood Venipuncture / 06/28/2021 2:28 06/28/2021 2:28 Unknown PM CDT PM CDT Lorenza Hernández Black DO LAB_1 Performing Organization Address [facility] Phon e Number [facility] [address] [place] [address] TB QuantiFERON Gold Plus TB1 (06/28/2021 2:28 PM CDT) athologist Signature TB1 0.094 IU/mL 07/02/2021 [facility] 8:54 AM CDT LABORATORY Specimen Anatomical Collection Method / Collection Time Recei giselle Time (Source) Location / Volume Laterality Blood Venipuncture / 06/28/2021 2:28 06/28/2021 2:28 Unknown PM CDT PM CDT Lorenza Hernández Black DO LAB_1 Performing Organization Address City/[facility] Phon e Number [facility] [address] [place] [address] TB QuantiFERON Gold Plus NIL (06/28/2021 2:28 PM CDT) [facility] gist Method Time Signature 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 NIL 0.024 IU/mL 07/02/2021 [facility] 8:54 AM LABORATORY CDT TB1-NIL 0.07 IU/mL 07/02/2021 [facility] 8:54 AM LABORATORY CDT TB2-NIL 0.06 IU/mL 07/02/2021 [facility] 8:54 AM LABORATORY CDT Mitogen-NIL 9.98 IU/mL 07/02/2021 [facility] 8:54 AM LABORATORY CDT Specimen Anatomical Collection Method / Collection Time Recei giselle Time (Source) Location / Volume Laterality Blood Venipuncture / 06/28/2021 2:28 06/28/2021 2:28 Unknown PM CDT PM CDT Narrative [facility] - 07/02/2021 8:54 A M CDT [...] Organization Address City/State/ZIP Code Phon e Number [facility] [address] [place] [address] (ABNORMAL) Complete Blood Count-W/Diff (06/28/2021 2:28 PM CDT) [facility] gist Method Time Signature WBC 12.1 (H) 3.5 - 10.5 06/28/2021 [place] x10(9)/L 2:44 PM CDT LABORATORY RBC 5.26 (H) 3.90 - 06/28/2021 [place] 5.03 2:44 PM CDT LABORATORY x10(12)/L Hemoglobin 15.2 12.0 - 06/28/2021 [place] 15.5 g/dL 2:44 PM CDT LABORATORY HCT 48.5 (H) 34.9 - 06/28/2021 [place] 44.5 % 2:44 PM CDT LABORATORY MCV 92.2 80.0 - 06/28/2021 [place] 100.0 fL 2:44 PM CDT LABORATORY MCH 28.9 27.6 - 06/28/2021 [place] 33.3 pg 2:44 PM CDT LABORATORY MCHC 31.3 (L) 31.5 - 06/28/2021 [place] 35.2 g/dL 2:44 PM CDT LABORATORY RDW 13.8 11.9 - 06/28/2021 [place] 15.5 % 2:44 PM CDT LABORATORY Platelets 307 150 - 450 06/28/2021 [place] x10(9)/L 2:44 PM CDT LABORATORY Automated NRBC 0 <=0 /100 06/28/2021 [place] WBC 2:44 PM CDT LABORATORY Neutrophil 10.8 (H) 1.7 - 7.0 06/28/2021 [place] Absolute 10(9)/L 2:44 PM CDT LABORATORY Lymphocyte 0.9 (L) 1.0 - 4.8 06/28/2021 [place] Absolute 10(9)/L 2:44 PM CDT LABORATORY Monocytes 0.3 0.2 - 0.9 06/28/2021 [place] Absolute 10(9)/L 2:44 PM CDT LABORATORY Eosinophil 0.0 0.0 - 0.5 06/28/2021 [place] Absolute 10(9)/L 2:44 PM CDT LABORATORY Basophil 0.0 0.0 - 0.3 06/28/2021 [place] Absolute 10(9)/L 2:44 PM CDT LABORATORY Immature Gran % 0.7 (H) 0.0 - 0.5 06/28/2021 [place] % 2:44 PM CDT LABORATORY Specimen Anatomical Collection Method / Collection Time Recei giselle Time (Source) Location / Volume Laterality Blood Venipuncture / 06/28/2021 2:28 06/28/2021 2:28 Unknown PM CDT PM CDT [employer] DO LAB_1 Performing Organization Address City/[facility]/ZIP Code Phon e Number [place] [facility] [address] [place] [address] Rheumatoid Factor, Quant (06/28/2021 2:27 PM CDT) Analysis Performed At Patho logist Time Signature Rheumatoid <15 <=30 IU/mL 06/28/2021 [facility] Factor, 7:52 PM CDT LABORATORY Quantitative Specimen Anatomical Collection Method / Collection Time Recei giselle Time (Source) Location / Volume Laterality Blood Venipuncture / 06/28/2021 2:27 06/28/2021 2:28 Unknown PM CDT PM CDT [employer] DO LAB_1 Performing Organization Address City/State/ZIP Code Phon e Number [facility] [address] [place] [address] Anti-CCP Antibody (06/28/2021 2:27 PM CDT) [facility] Method Time Signature Anti-CCP Antibody 1 <7 U/mL 06/29/2021 [facility]16 PM CDT C[facility]AL LAB Anti-CCP Antibody Negative Negative 06/29/2021 [facility] ERS Interpretation 1:16 PM CDT CENTRAL LAB Specimen Anatomical Collection Method / Collection Time Recei giselle Time (Source) Location / Volume Laterality Blood Venipuncture / 06/28/2021 2:27 06/28/2021 2:28 Unknown PM CDT PM CDT [employer] DO LAB_1 Performing Organization Address City/[facility] Code Phon e Number [facility] [address] [address] Hepatitis B Surface Antigen (06/28/2021 2:27 PM CDT) [facility] Method Time Signature Hepatitis B Negative Negative 06/28/2021 [facility] Surface (Non (Non 8:12 PM CDT LABORATORY Antigen Reactive) Reactive) Specimen Anatomical Collection Method / Collection Time Recei giselle Time (Source) Location / Volume Laterality Blood Venipuncture / 06/28/2021 2:27 06/28/2021 2:28 Unknown PM CDT PM CDT [employer] DO LAB_1 Performing Organization Address City/[facility] Code Phon e Number [facility] [address] [place] [address] HIV 1/2 Ag/Ab 4th Generation (06/28/2021 2:27 PM CDT) [facility] Method Time Signature HIV 1/2 Negative Negative 06/28/2021 [facility] Antigen/Antib (Non (Non 7:52 PM CDT LABORATORY zachary (4th Reactive) Reactive) generation) Comment: HIV-1 p24 Antigen and HIV-1/HIV -2 Antibody not detected Specimen Anatomical Collection Method / Collection Time Recei giselle Time (Source) Location / Volume Laterality Blood Venipuncture / 06/28/2021 2:27 06/28/2021 2:28 Unknown PM CDT PM CDT [facility] LAB_1 Performing Organization Address [facility]/ZIP Code Phon e Number [facility] [address] [place] [address] Hepatitis C Antibody, with Reflex (06/28/2021 2:27 PM CDT) [facility] Method Time Signature Hepatitis C Negative Negative 06/28/2021 [facility] Antibody (Non (Non 7:52 PM CDT LABORATORY Reactive) Reactive) Comment: Antibodies to HCV not detected. Does not exclude the possiblity of exposure to HCV. Specimen Anatomical Collection Method / Collection Time Recei giselle Time (Source) Location / Volume Laterality Blood Venipuncture / 06/28/2021 2:27 06/28/2021 2:28 Unknown PM CDT PM CDT [facility] LAB_1 Performing Organization Address [facility] Phon e Number [facility] [address] [place] [address] Liver Panel(Hepatic Function Panel) (06/28/2021 2:27 PM CDT) athologist [facility] Alkaline 70 40 - 150 06/28/2021 [place] Phosphatase U/L 5:11 PM CDT LABORATORY Bilirubin, Total 0.5 0.2 - 1.2 06/28/2021 [place] mg/dL 5:11 PM CDT LABORATORY Bilirubin, 0.2 0.0 - 0.5 06/28/2021 [place] Direct mg/dL 5:11 PM CDT LABORATORY AST (SGOT) 18 10 - 40 06/28/2021 [place] U/L 5:11 PM CDT LABORATORY ALT (SGPT) 21 0 - 55 U/L 06/28/2021 [place] 5:11 PM CDT LABORATORY Protein, Total 6.5 6.4 - 8.3 06/28/2021 [place] g/dL 5:11 PM CDT LABORATORY Albumin 3.9 3.5 - 5.0 06/28/2021 [place] g/dL 5:11 PM CDT LABORATORY Specimen Anatomical Collection Method / Collection Time Recei giselle Time (Source) Location / Volume Laterality Blood Venipuncture / 06/28/2021 2:27 06/28/2021 2:28 Unknown PM CDT PM CDT Lorenza Black DO LAB_1 Performing Organization Address [facility]/ZIP Code Phon e Number [place] [facility] [address] [place], [place] [phone] (ABNORMAL) Creatinine / GFR (06/28/2021 2:27 PM CDT) [facility] gist Method Time Signature Creatinine 0.40 (L) 0.55 - 06/28/2021 [place] 1.02 mg/dL 5:11 PM CDT LABORATORY GFR, Estimated >60 >60 06/28/2021 [place] mL/min/1.7 5:11 PM CDT LABORATORY 3m2 Specimen Anatomical Collection Method / Collection Time Recei giselle Time (Source) Location / Volume Laterality Blood Venipuncture / 06/28/2021 2:27 06/28/2021 2:28 Unknown PM CDT PM CDT Lorenza Black DO LAB_1 Performing Organization Address [facility]/ZIP Code Phon e Number [facility] [address] [place] [address] documented in this encounter Visit Diagnoses Diagnosis 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
--- OUTSIDE RECORDS SUMMARY | 2022-09-24 09:04 | XMS_ITS | Encounter Summary ---
:1945 Author Organization [facility] Address [address], [place] [address] Care Team Providers Name Role Phone Flo Mckeon MD Primary Care Provider Encounter Details Date Type Department Care Team Description 08/19/2022 Phone Visit [facility] [address] Lorenza Blakc DO Rheumatoid arthritis with negative rheum atoid factor, involving unspecified site (HRC) (Primary Dx); Rheumatology [address] [place] [address] Encounter for long-term (cur rent) use of medications [address] [place] [address] [place] [address] [phone] Social History Tobacco Use Types Packs/Day Years [...] coccyx. She has difficulty traveling in from [facility] to anyone of our clinics. The patient [...] we can get orders sent over to [facility] to have her get the rituximab there instead of at our [facility] location. This will aid her [...] is located at home in the [place]. The consulting provider is located in [place], [place]. R documented in this encounter Plan of Treatment Upcoming Encounters Date Type Specialty Care Team Description 09/30/2022 Phone Visit Rheumatology Lorenza Black DO [address] [facility] N [address] (Wo rk) documented as of this encounter Visit Diagnoses Diagnosis Rheumatoid arthritis with negative rheum atoid factor, involving unspecified site (HRC) - Primary Encounter for long-term (current) use of medications Encounter for long-term (current) use of other medications documented in this encounter Care Teams Underwriting Clerks Supervisor Relationship Specialty Start Date End Date Flo Mckeon MD PCP - General 06/21/211999 [place] [address] documented as of this encounter
--- OUTSIDE RECORDS SUMMARY | 2022-09-24 09:04 | XMS_ITS | Encounter Summary ---
:1945 Author Organization [facility] Address [address] [place] [address] Care Team Providers Name Role Phone Flo Mckeon MD Primary Care Provider Reason for Visit Reason Comments Refill Encounter Details Date Type Department Care Team Description 06/13/2022 Refill [facility] [address] Lorenza Black DO Refill Rheumatology [address] [place] [address] [place], [place] [address] [phone] Social History Tobacco Use Types Packs/Day Years [...] Rheumatology Lorenza Black DO [address] [facility] N [address] (Wo rk) documented as of this encounter Visit Diagnoses Diagnosis Rheumatoid arthritis with negative rheum atoid factor, involving unspecified site (HRC) Encounter for long-term (current) use of medications Encounter for long-term (current) use of other medications documented in this encounter Care Teams Grinder Set Up Operator Jig Relationship Specialty Start Date End Date Flo Mckeon MD PCP - General 06/21/211999 [place] [address] documented as of this encounter
--- OUTSIDE RECORDS SUMMARY | 2022-09-24 09:04 | XMS_ITS | Encounter Summary ---
:1945 Author Organization [employer] Address [address] [address] Care Team Providers Name Role Phone lFo Mckeon MD Primary Care Provider Reason for Visit Reason Comments Phone Visit Follow-up Encounter Details Date Type Department Care Team Description 07/31/2021 Phone Visit [place] Lorenza Black DO Rheumatoid arthritis with negative rheum atoid factor, involving unspecified site (HRC) (Primary Dx); Rheumatology [address] [place] [address] Encounter for long-term (cur rent) use of medications [address] [place] [address] [place], [place] [phone] [address] (Wo rk) Social History Tobacco Use Types [...] The patient is located at Home in [facility]. The consulting provider is located in [place], [place]. documented in this encounter Plan of Treatment Upcoming Encounters Date Type Specialty Care Team Description 09/30/2022 Phone Visit Rheumatology Lorenza Black DO [address] [facility] N [address] (Wo rk) documented as of this encounter Visit Diagnoses Diagnosis Rheumatoid arthritis with negative rheum atoid factor, involving unspecified site (HRC) - Primary Encounter for long-term (current) use of medications Encounter for long-term (current) use of other medications documented in this encounter Care Teams Shipper And Receiving Relationship Specialty Start Date End Date Flo Mckeon MD PCP - General 06/21/211999 [place] [address] documented as of this encounter
--- OUTSIDE RECORDS SUMMARY | 2022-09-24 09:04 | XMS_ITS | Encounter Summary ---
:1945 Author Organization [facility] Address [address], [place] [address] Care Team Providers Name Role Phone Flo Mckeon MD Primary Care Provider Reason for Visit Reason Comments Phone Visit Follow-up Encounter Details Date Type Department Care Team Description 09/13/2021 Phone Visit [place] Lorenza Black DO Rheumatoid arthritis, Rheumatology [address] [facility] involving unspecified [address] [facility] site, [place] [address] [place], [place] whether rheumatoid [phone] factor present (HRC) [phone] (Wo rk) (Primary Dx) Social History Tobacco Use Types Packs/Day Years Used Date Smoking Tobacco: Never Assessed Sex Assigned at Date Recorded Not on file documented as of this encounter Progress Notes Lorenza Black DO - 09/13/2021 2:45 PM CST Error ETING PERFORMANCE ANALYST documented in this encounter Plan of Treatment Upcoming Encounters Date Type Specialty Care Team Description 09/30/2022 Phone Visit Rheumatology Lorenza Black DO [address] [facility] N [address] (Wo rk) documented as of this encounter Visit Diagnoses Diagnosis Rheumatoid arthritis, involving unspecif ied site, unspecified whether rheumatoid factor present (HRC) - Primary documented in this encounter Care Teams Cement Worker Relationship Specialty Start Date End Date Flo Mckeon MD PCP - General 06/21/211999 [place] [address] documented as of this encounter
--- OUTSIDE RECORDS SUMMARY | 2022-09-24 09:04 | XMS_ITS | Encounter Summary ---
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) Lorenza Black DO Procedures XR Shoulder Rt 2+ Views [address] [place], [place] [address] Referral ID Status Reason Start Date Expiration Date Visits V isits Requested Authorized [id number] Incomplete 06/28/2021 09/27/2022 1 1 Procedure/Equipment (Routine) - Incomplete Specialty Diagnoses / Procedures Referred By Contact Refer red To Contact Diagnoses 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) Lorenza Black DO Procedures XR Hands 1 View Bilat Arthritis [address] [place], [place] [address] Referral ID Status Reason Start Date Expiration Date Visits V isits Requested Authorized [id number] Incomplete 06/28/2021 09/27/2022 1 1 Reason for Visit Reason Comments CONSULT Encounter Details Date Type Department Care Team Description 06/28/2021 Office Visit Lorenza Wolf DO 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 She has been on prednisone 5 mg and then recently 10 mg [id number] Today the patient states that her hands [...] to 6/10. She laments the inability to cloth picker her grandchildren. She has tried anti-inflammatories [...] smoked. 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 Exam Gen: NAD, [...] 65 minutes including, but not limited to, [id number]-face time spent reviewing records, counseling, and coordination of care. documented in this encounter Plan of Treatment Upcoming Encounters Date Type Specialty Care Team Description 09/30/2022 Phone Visit Rheumatology Black, Lorenza Hernández, DO [address] [place] N [address] (Wo rk) documented as of this encounter [...] Time Signature Rheumatoid <15 <=30 IU/mL 06/28/2021 [facility] Factor, 7:52 PM CDT LABORATORY Quantitative Specimen Anatomical Collection Method / Collection Time Recei giselle Time (Source) Location / Volume Laterality Blood Venipuncture / 06/28/2021 2:27 06/28/2021 2:28 Unknown PM CDT PM CDT Lorenza Edgar Black DO LAB_1 Performing Organization Address City/[facility] Code Phon e Number [facility] [address] [place] [address] Anti-CCP Antibody (06/28/2021 2:27 PM CDT) [facility] Method Time Signature Anti-CCP Antibody [...] Edgar Black DO LAB_1 Performing Organization Address [facility] Phon e Number [facility] [address] [address] Hepatitis B Surface Antigen (06/28/2021 2:27 PM CDT) [facility] Method Time Signature Hepatitis B Negative Negative 06/28/2021 [facility] Surface (Non (Non 8:12 PM CDT LABORATORY Antigen Reactive) Reactive) Specimen Anatomical Collection Method / Collection Time Recei giselle Time (Source) Location / Volume Laterality Blood Venipuncture / 06/28/2021 2:27 06/28/2021 2:28 Unknown PM CDT PM CDT Lorenza Edgar [employer] LAB_1 Performing Organization Address City/[facility]/ZIP Code Phon e Number [facility] [address] [place] [address] HIV 1/2 Ag/Ab 4th Generation (06/28/2021 2:27 PM CDT) [facility] Method Time Signature HIV 1/2 Negative Negative 06/28/2021 [facility] Antigen/Antib (Non (Non 7:52 PM CDT LABORATORY zachary (4th Reactive) Reactive) generation) Comment: HIV-1 p24 Antigen and HIV-1/HIV -2 Antibody not detected Specimen Anatomical Collection Method / Collection Time Recei giselle Time (Source) Location / Volume Laterality Blood Venipuncture / 06/28/2021 2:27 06/28/2021 2:28 Unknown PM CDT PM CDT [facility] LAB_1 Performing Organization Address [facility]/ZIP [facility] Phon e Number [facility] [address] [place] [address] Hepatitis C Antibody, with Reflex (06/28/2021 2:27 PM CDT) [facility] gist Method Time Signature Hepatitis C Negative Negative 06/28/2021 [facility] Antibody (Non (Non 7:52 PM CDT LABORATORY Reactive) Reactive) Comment: Antibodies to HCV not detected. Does not exclude the possiblity of exposure to HCV. Specimen Anatomical Collection Method / Collection Time Recei giselle Time (Source) Location / Volume Laterality Blood Venipuncture / 06/28/2021 2:27 06/28/2021 2:28 Unknown PM CDT PM CDT [facility] LAB_1 Performing Organization Address [facility] e Number [facility] [place] [address] Liver Panel(Hepatic Function Panel) (06/28/2021 2:27 PM CDT) P athologist Signature Alkaline 70 40 - 150 06/28/2021 [place] Phosphatase U/L 5:11 PM CDT LABORATORY Bilirubin, Total 0.5 0.2 - 1.2 06/28/2021 [place] mg/dL 5:11 PM CDT LABORATORY Bilirubin, 0.2 0.0 - 0.5 06/28/2021 [place] Direct mg/dL 5:11 PM CDT LABORATORY AST (SGOT) 18 10 - 40 06/28/2021 [place] U/L 5:11 PM CDT LABORATORY ALT (SGPT) 21 0 - 55 U/L 06/28/2021 [place] 5:11 PM CDT LABORATORY Protein, Total 6.5 6.4 - 8.3 06/28/2021 [place] g/dL 5:11 PM CDT LABORATORY Albumin 3.9 3.5 - 5.0 06/28/2021 [place] g/dL 5:11 PM CDT LABORATORY Specimen Anatomical Collection Method / Collection Time Recei giselle Time (Source) Location / Volume Laterality Blood Venipuncture / 06/28/2021 2:27 06/28/2021 2:28 Unknown PM CDT PM CDT Lorenza Black DO LAB_1 Performing Organization Address [facility]/ZIP Code Phon e [facility] [address] [place], [place] [phone] (ABNORMAL) Creatinine / GFR (06/28/2021 2:27 PM CDT) [facility] gist Method Time Signature Creatinine 0.40 (L) 0.55 - 06/28/2021 [place] 1.02 mg/dL 5:11 PM CDT LABORATORY GFR, Estimated >60 >60 06/28/2021 [place] mL/min/1.7 5:11 PM CDT LABORATORY 3m2 Specimen Anatomical Collection Method / Collection Time Recei giselle Time (Source) Location / Volume Laterality Blood Venipuncture / 06/28/2021 2:27 06/28/2021 2:28 Unknown PM CDT PM CDT Lorenza Black DO LAB_1 Performing Organization Address City/[facility]/ZIP Code Phon e [facility] [address] [place], [place] [phone] documented in this encounter Visit Diagnoses Diagnosis 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
--- OUTSIDE RECORDS SUMMARY | 2022-09-24 09:04 | XMS_ITS | Encounter Summary ---
:1945 Author Organization [facility] Address [address] [place] [address] Care Team Providers Name Role Phone Unassigned, Provider Primary Care Provider Unavailable Encounter Details Date Type Department Care Team Description 10/13/1989 PN Conversion Only BEAD MAKER [address] [place] [address] Social History Tobacco Use Types Packs/Day Years Used Date Smoking Tobacco: Never Assessed Sex Assigned at Date Recorded Not on file documented as of this encounter Plan of Treatment Upcoming Encounters Date Type Specialty Care Team Description 09/30/2022 Phone Visit Rheumatology Black, Lorenza Hernández, DO [address] [facility], N [id number] (Wo rk) documented as of this encounter Visit Diagnoses Not on filedocumented in this encounter Care Teams Executive Receptionist Relationship Specialty Start Date End Date Unassigned, Provider PCP - General 07/16/00 06/20/[address] [place] [address] documented as of this encounter
--- OUTSIDE RECORDS SUMMARY | 2022-09-24 09:04 | XMS_ITS | Encounter Summary ---
:1945 Author Organization [facility] Address [address], [place] [address] Care Team Providers Name Role Phone Flo Mckeon MD Primary Care Provider Reason for Visit Reason Comments LAB RESULTS Encounter Details Date Type Department Care Team Description 07/02/2021 Telephone [facility] 3800 Lorenza Black DO LAB RESULTS Rheumatology [address] [place] [address] [place] [address] [phone] Social History Tobacco Use Types Packs/Day Years [...] Phone Visit Rheumatology Black, Lorenza Q, DO [address] [address] (Wo rk) documented as of this encounter Visit Diagnoses Diagnosis Rheumatoid arthritis with negative rheum atoid factor, involving unspecified site (HRC) - Primary Encounter for long-term (current) use of medications Encounter for long-term (current) use of other medications documented in this encounter Care Teams Alarm Investigator Relationship Specialty Start Date End Date Flo Mckeon MD PCP - General 06/21/211999 [place] [address] documented as of this encounter
--- OUTSIDE RECORDS SUMMARY | 2022-09-24 09:04 | XMS_ITS | Clinical Summary ---
:1945 Author Organization [facility] [place] [address] Care Team Providers Name Role Phone Kallie Tamayo [facility]RO Unavailable [facility] Unavailable Flo Mckeon MD Primary Care [...] Addre ss Type Group MEDICARE PPS MEDICARE [id number] 2011-Presen [address] [place] [address] [place] [employer] [id number] 2019-Presen [address] [place] [address] (Work) [phone] Josh Major Personal/Famil Self 1945 [address] [facility] [address] (Home) [place], [place] [phone] (Work) Care Teams Manager Training And Development Relationship Specialty Start Date End Date Flo Mckeon MD PCP - General Family Practice 10/04/211999 [place] [address] Kallie Tamayo, FRO[facility] 01/17/[address] [id number] [facility] 01/29/14 [address]25 [facility] [address] [place] [address]
--- OUTSIDE RECORDS SUMMARY | 2022-09-24 09:04 | XMS_ITS | Encounter Summary ---
:1945 Author Organization [facility] Address [address] [place] [address] Care Team Providers Name Role Phone Flo Mckeon MD Primary Care Provider Encounter Details Date Type Department Care Team Description 08/28/2022 Telephone [facility] 3800 Padmini Baugh MD Rheumatology [address] [place] [address] [facility] [address] [place] [phone] (Wo rk) Social History Tobacco Use Types Packs/Day Years Used Date Smoking Tobacco: Never Assessed Sex Assigned at Date Recorded Not on file documented as of this encounter Nursing Notes Vickie Alejandro LPN - 08/28/2022 2:57 PM CST A user error has taken place: encounter opened in error, closed for administrative reasons. ICAL RESEARCH DIRECTOR documented in this encounter Plan of Treatment Upcoming Encounters Date Type Specialty Care Team Description 09/30/2022 Phone Visit Rheumatology Black, Lorenza Hernández, DO [address] [place] [address] [facility] N [address] (Wo rk) documented as of this encounter Visit Diagnoses Not on filedocumented in this encounter Care Teams Consumer Attorney Relationship Specialty Start Date End Date Flo Mckeon MD PCP - General 06/21/211999 [place] [address] documented as of this encounter
== END 2022-09-24 08:49 | disposition home or self-care (01) ==
LOC: WOUND 08:48
PROVIDERS: PCP Family Medicine; Visit Provider Nurse Practitioner Family
DX: M86.68 Other chronic osteomyelitis, other site (principal); L89.314 Pressure ulcer of right buttock, stage 4; Q82.0 Hereditary lymphedema
CPT/HCPCS: 11042; G0277

== ENCOUNTER 2022-09-26 08:50 | Outpatient (CLI) | payer OTHER, SELFPAY | END 2022-09-26 08:51 | disposition home or self-care (01) | LOC: WOUND 08:50 | PROVIDERS: PCP Family Medicine; Visit Provider Nurse Practitioner Family | DX: M86.68 Other chronic osteomyelitis, other site (principal); L89.314 Pressure ulcer of right buttock, stage 4; Q82.0 Hereditary lymphedema; G82.20 Paraplegia, unspecified | CPT/HCPCS: 15271; 97605; G0277; Q4158 ==

== ENCOUNTER 2022-09-30 08:49 | Outpatient (CLI) | payer OTHER, SELFPAY | END 2022-09-30 08:50 | disposition home or self-care (01) | PROVIDERS: PCP Family Medicine; Visit Provider Nurse Practitioner Family | DX: L89.314 Pressure ulcer of right buttock, stage 4 (principal); M86.68 Other chronic osteomyelitis, other site; Q82.0 Hereditary lymphedema | CPT/HCPCS: 11042; 97605; G0277 ==

== ENCOUNTER 2022-10-01 11:27 | Outpatient (CLI) | payer MEDICARE, SELFPAY ==
[2022-10-01 11:58] LABS: Basophils Percent Auto 0.3 % (0.0-3.0); Hematocrit 35.8 % (33.0-51.0); Hemoglobin* 10.9 gm/dL (12.0-16.0); Immature Granulocytes Pct Auto 1.2 %; Mean Corpuscular HGB Conc 30 gm/dL (32-36); Mean Corpuscular Hemoglobin 29 pg (26-34); Mean Corpuscular Volume 94 fL (80-100); Neutrophils Percent Auto 86.5 % (42.0-72.0); Platelet Count* 414 K/uL (140-440); RDW Coefficient of Variation % 14.8 % (11.5-15.5)
[2022-10-01 12:03] LABS: Slide Review Reflex No
[2022-10-01 12:08] LABS: Albumin* 3.3 g/dL (3.3-5.0); Chloride* 103 mmol/L (96-114)
[2022-10-01 12:09] LABS: Potassium* 4.4 mmol/L (3.6-5.1); Sodium* 138 mmol/L (135-149)
[2022-10-01 12:11] LABS: Alkaline Phosphatase* 157 U/L (40-150); Aspartate Amino Transferase* 24 U/L (12-35); Bilirubin Total* 0.5 mg/dL (0.1-1.5); Blood Urea Nitrogen* 30 mg/dL (7-30); Carbon Dioxide* 32 mmol/L (20-32); Creatinine* 0.5 mg/dL (0.5-1.5); Estimated Glomerular Filt Rate 98 ml/min; Total Protein* 5.7 g/dL (6.0-8.3)
[2022-10-01 12:12] LABS: Alanine Aminotransferase* 23 U/L (4-35); Calcium* 8.5 mg/dL (8.4-10.6); Glucose* 169 mg/dL (60-115)
== END 2022-10-01 11:28 | disposition home or self-care (01) ==
PROVIDERS: PCP Family Medicine; Visit Provider Family Medicine
DX: D64.9 Anemia, unspecified (principal); R60.9 Edema, unspecified
CPT/HCPCS: 36415; 80053; 85025

== ENCOUNTER 2022-10-08 12:22 | Outpatient (CLI) | payer MEDICARE, SELFPAY | END 2022-10-08 12:23 | disposition home or self-care (01) | LOC: WOUND 12:22 | PROVIDERS: PCP Family Medicine; Visit Provider Nurse Practitioner Family | DX: M86.68 Other chronic osteomyelitis, other site (principal); L89.314 Pressure ulcer of right buttock, stage 4; I87.2 Venous insufficiency (chronic) (peripheral); Q82.0 Hereditary lymphedema; G82.20 Paraplegia, unspecified | CPT/HCPCS: 11042; 97605 ==

== ENCOUNTER 2022-10-30 08:17 | Outpatient (CLI) | payer MEDICARE, SELFPAY | END 2022-10-30 08:18 | disposition home or self-care (01) | LOC: AMB 11-01 09:35 | PROVIDERS: PCP Family Medicine; Visit Provider Family Medicine | DX: L02.31 Cutaneous abscess of buttock (principal) | CPT/HCPCS: A0425; A0427 ==

== ENCOUNTER 2022-10-30 08:57 | Inpatient (IN) | payer MEDICARE, SELFPAY ==
[2022-10-30] VITALS (28 sets, daily range): BP systolic 99–129; BP diastolic 35–87; PULSE 86–134; RESP 16–20; TEMP 36.1–37.1; O2SAT 90–100; BMI 28.3
--- NOTE | 2022-10-30 09:29 | ED.NURSE ---
per Nicole, wound care nurse, pt had been getting weekly wound care until [facility] stopped doing transport in [place]. she thinks pt's has dementia. also thinks she would benefit from admission and placement.
--- NOTE | 2022-10-30 09:34 | ED_ITS ---
HPI - General Adult General Time Seen by Provider: 09:35 Date Seen: 10/30/22 Chief complaint: Laceration/Wound Stated complaint: Bed sores Time Seen by Provider: 10/30/22 09:16 Source: EMS Mode of arrival: EMS Limitations: physical limitation History of Present Illness HPI narrative: Patient is a 76-year-old female with transverse myelopathy and plegia, who has a catheter placed, has a stage IV pressure ulcer in her right buttock area. That her home health nurse reports has been more malodorous and reddened around the area. She center in by ambulance for potential infection. She apparently had a temperature a 101.7 yesterday. She states she felt worse yesterday and this morning but feels little better now. She does not report any discomfort. She has a chronic indwelling Cristobal by nurses report. She has seen the wound clinic in the past. She has had septic shock in the past. She has had MRSA in the past Related Data Home Medications Medication Instructions Recorded Confirmed lactobacillus combination no.4 3 3,000 mmu cells PO DAILY 07/10/22 10/30/22 billion cell capsule (Probiotic) multivitamin (Daily Multi-Vitamin 1 tab PO DAILY 07/10/22 10/30/22 tablet) aspirin 81 mg tablet,delayed 81 mg PO DAILY 07/25/22 10/30/22 release naproxen sodium 220 mg tablet 220 mg PO BID PRN 07/25/22 10/30/22 pseudoephedrine HCl 30 mg tablet 30 mg PO BID PRN 07/25/22 10/30/22 celecoxib 200 mg capsule 200 mg PO BID 10/30/22 10/30/22 furosemide 20 mg tablet 20 mg PO DAILY 10/30/22 10/30/22 metoprolol succinate 50 mg 50 mg PO DAILY 10/30/22 10/30/22 tablet,extended release 24 hr prednisone 5 mg tablet 10 mg PO DAILY 10/30/22 10/30/22 Previous Rx's Medication Instructions Recorded gabapentin 300 mg capsule 300 mg PO TID #270 caps 09/18/22 hydrocodone 5 mg-acetaminophen 325 1 tab PO BID PRN pain #35 tabs 10/28/22 mg tablet Allergies Allergy/AdvReac Type Severity Reaction Status Date / Time vancomycin Allergy Severe Hives Verified 10/30/22 18:17 piperacillin Allergy Intermediate Rash Verified 09/12/22 11:43 tazobactam Allergy Intermediate Rash Verified 09/12/22 11:43 Review of Systems Status of ROS: Reports: 6 or more systems reviewed and unremarkable except as noted in History and below [facility] Medical History (Updated 11/03/22 @ 15:56 by Roshan Kline MD) Acute on chronic anemia Chronic pain Chronic steroid use History of methicillin resistant Staphylococcus aureus infection HTN (hypertension) Neurogenic bladder Osteoporosis Paraplegia Recurrent urinary tract infection Rheumatoid arthritis Septic shock Transverse myelopathy syndrome Tubular adenoma of colon Social History Highest level of school completed/degree received: decline to answer Smoking Status: Never smoker Do you use any of these nicotine containing products: None and E-Cigarettes How often do you have a drink containing alcohol: never How often do you have six or more drinks on one occasion: Never AUDIT-C Alcohol total score: 0 Non-prescribed substance use: denies use Caffeine: No service: No Exam Narrative: Exam Narrative: Objective: Patient's vital signs unremarkable She is alert orient x3, noncyanotic, bedbound, she has a regular pulse HEENt is unremarkable Pulses regular abdomen benign soft her buttock exam shows a very large deep ulcer that is reddened and warm around the ulcer. It was stuffed with malodorous purulent containing pads that were removed. Extremities show no changes of significance Const: Vital Signs, click to edit/add: Vital Signs - 24 hr 10/30/22 08:57 Temperature 98.4 F Respiratory Rate 20 Blood Pressure [Le ft Upper Arm] 125/87 Pulse Oximetry 96 Oxygen Delivery Me thod Room Air Course Vital Signs Vital signs: Initial Vital Signs Temperature 98.4 F 10/30/22 08:57 Temperature Source Temporal Artery Scan 10/30/22 08:57 Respiratory Rate 20 10/30/22 08:57 Blood Pressure 125/87 10/30/22 08:57 Blood Pressure Mean 99 10/30/22 08:57 Blood Pressure Position Supine 10/30/22 08:57 Pulse Oximetry 96 10/30/22 08:57 Oxygen Delivery Method 10/30/22 08:57 Vital Signs Temperature 98.4 F 10/30/22 08:57 Respiratory Rate 20 10/30/22 08:57 Blood Pressure 125/87 10/30/22 08:57 Pulse Oximetry 96 10/30/22 08:57 Oxygen Delivery Method 10/30/22 08:57 Temperature 98.5 F 11/04/22 07:00 Pulse Rate 101 H 11/04/22 07:00 Respiratory Rate 21 11/04/22 07:00 Blood Pressure 127/57 L 11/04/22 07:00 Pulse Oximetry 91 11/04/22 07:00 Oxygen Delivery Method 11/04/22 07:00 Medical Decision Making MDM Narrative Medical decision making narrative: Patient is a 76 year old female who is paraplegic, has transverse myelitis syndrome, has had septic shock, MRSA and a very large stage IV buttock ulcer. The ulcer appears more reddened than purulent per the people that are taking care of it regularly. The patient I think would benefit from IV antibiotics for period of time, wound culture, blood cultures, surgical assessment, wound center assessment. Patient will be consists is put on observation status for the hospital. Will also check COVID/influenza/RSV. Lab Data Labs: Lab Results 10/30/22 10/30/22 10/30/22 Range/Units 10:05 10:05 10:05 WBC 15.00 H (4.50-11.00) K/uL RBC 4.55 (4.00-5.20) m/uL Hgb 12.5 (12.0-16.0) gm/dL Hct 41.1 (33.0-51.0) % MCV 90 (80-100) fL MCH 28 (26-34) pg MCHC 30 L (32-36) gm/dL RDW Coeff of Lynette 14.7 (11.5-15.5) % Plt Count 413 (140-440) K/uL Neut % (Auto) 68.1 (42.0-72.0) % Lymph % (Auto) 18.4 L (20-44) % [place] % (Auto) 10.7 (0.0-11.0) % Eos % (Auto) 1.4 (0.0-7.0) % Baso % (Auto) 0.3 (0.0-3.0) % Neut # (Auto) 10.20 H (1.7-7.0) K/uL Lymph # (Auto) 2.80 (0.90-2.90) K/uL [place] # (Auto) 1.60 H (0.00-0.90) K/UL Eos # (Auto) 0.20 (0.00-0.50) K/uL Baso # (Auto) 0.00 (0.00-0.30) K/uL INR (0.91-1.10) Sodium 139 (135-149) mmol/L Potassium 3.5 L (3.6-5.1) mmol/L Chloride 104 (96-114) mmol/L Carbon Dioxide 32 (20-32) mmol/L BUN 20 (7-30) mg/dL Creatinine 0.4 L (0.5-1.5) mg/dL Estimated Creat Clear 34.91 Estimated GFR 103 ml/min Glucose 92 (60-115) mg/dL Lactate 1.3 (0.5-1.9) mmol/L Calcium 8.9 (8.4-10.6) mg/dL Total Bilirubin 0.8 (0.1-1.5) mg/dL Direct Bilirubin 0.3 (0.0-0.5) mg/dL AST 28 (12-35) U/L ALT 23 (4-35) U/L Alkaline Phosphatase 196 H (40-150) U/L C-Reactive Protein 13.6 H (0.5-1.0) mg/dL Total Protein 6.0 (6.0-8.3) g/dL Albumin 3.3 (3.3-5.0) g/dL Procalcitonin 0.07 (<0.50) ng/mL Urine Color (Yellow) Urine Appearance (Clear) Urine pH (5.0-8.5) Ur Specific [place] (1.000-1.030) Urine Protein (Negative) Urine Glucose (UA) (Negative) Urine Ketones (Negative) Urine Blood (Negative) Urine Nitrite (Negative) Urine Bilirubin (Negative) Urine Urobilinogen (0.2-1.0) Ur Leukocyte Esterase (Negative) Urine RBC (0-2) Urine WBC (0-5) Ur Squamous Epith Cells (None-Few) Urine Bacteria (None) SARS-CoV-2 (PCR) (Negative) Influenza Type A (PCR) (Negative) Influenza Type B (PCR) (Negative) RSV (PCR) (Negative) 10/30/22 10/30/22 10/31/22 Range/Units 10:05 10:05 05:59 WBC 16.07 H (4.50-11.00) K/uL RBC 3.98 L (4.00-5.20) m/uL Hgb 10.9 L (12.0-16.0) gm/dL Hct 35.7 (33.0-51.0) % MCV 90 (80-100) fL MCH 27 (26-34) pg MCHC 31 L (32-36) gm/dL RDW Coeff of Lynette 14.7 (11.5-15.5) % Plt Count 407 (140-440) K/uL Neut % (Auto) 86.9 H (42.0-72.0) % Lymph % (Auto) 10.1 L (20-44) % [place] % (Auto) 1.6 (0.0-11.0) % Eos % (Auto) 0.0 (0.0-7.0) % Baso % (Auto) 0.1 (0.0-3.0) % Neut # (Auto) 14.00 H (1.7-7.0) K/uL Lymph # (Auto) 1.60 (0.90-2.90) K/uL [place] # (Auto) 0.30 (0.00-0.90) K/UL Eos # (Auto) 0.00 (0.00-0.50) K/uL Baso # (Auto) 0.00 (0.00-0.30) K/uL INR (0.91-1.10) Sodium (135-149) mmol/L Potassium (3.6-5.1) mmol/L Chloride (96-114) mmol/L Carbon Dioxide (20-32) mmol/L BUN (7-30) mg/dL Creatinine (0.5-1.5) mg/dL Estimated Creat Clear Estimated GFR ml/min Glucose (60-115) mg/dL Lactate (0.5-1.9) mmol/L Calcium (8.4-10.6) mg/dL Total Bilirubin (0.1-1.5) mg/dL Direct Bilirubin (0.0-0.5) mg/dL AST (12-35) U/L ALT (4-35) U/L Alkaline Phosphatase (40-150) U/L C-Reactive Protein (0.5-1.0) mg/dL Total Protein (6.0-8.3) g/dL Albumin (3.3-5.0) g/dL Procalcitonin (<0.50) ng/mL Urine Color Yellow (Yellow) Urine Appearance Clear (Clear) Urine pH 6.5 (5.0-8.5) Ur Specific [place] 1.015 (1.000-1.030) Urine Protein Negative (Negative) Urine Glucose (UA) Negative (Negative) Urine Ketones Negative (Negative) Urine Blood Trace-intact A (Negative) Urine Nitrite Positive A (Negative) Urine Bilirubin Negative (Negative) Urine Urobilinogen 4.0 (0.2-1.0) Ur Leukocyte Esterase 3+ A (Negative) Urine RBC 0-2 (0-2) Urine WBC 10-25 A (0-5) Ur Squamous Epith Cells Few (None-Few) Urine Bacteria Moderate A (None) SARS-CoV-2 (PCR) Negative SARS-CoV-2 (Negative) Influenza Type A (PCR) Negative PCR FLU A (Negative) Influenza Type B (PCR) Negative PCR FLU B (Negative) RSV (PCR) Negative PCR RSV (Negative) 10/31/22 10/31/22 Range/Units 05:59 05:59 WBC (4.50-11.00) K/uL RBC (4.00-5.20) m/uL Hgb (12.0-16.0) gm/dL Hct (33.0-51.0) % MCV (80-100) fL MCH (26-34) pg MCHC (32-36) gm/dL RDW Coeff of Lynette (11.5-15.5) % Plt Count (140-440) K/uL Neut % (Auto) (42.0-72.0) % Lymph % (Auto) (20-44) % [place] % (Auto) (0.0-11.0) % Eos % (Auto) (0.0-7.0) % Baso % (Auto) (0.0-3.0) % Neut # (Auto) (1.7-7.0) K/uL Lymph # (Auto) (0.90-2.90) K/uL [place] # (Auto) (0.00-0.90) K/UL Eos # (Auto) (0.00-0.50) K/uL Baso # (Auto) (0.00-0.30) K/uL INR 1.01 (0.91-1.10) Sodium 138 (135-149) mmol/L Potassium 4.2 (3.6-5.1) mmol/L Chloride 106 (96-114) mmol/L Carbon Dioxide 27 (20-32) mmol/L BUN 24 (7-30) mg/dL Creatinine 0.5 (0.5-1.5) mg/dL Estimated Creat Clear 34.91 Estimated GFR 98 ml/min Glucose 259 H (60-115) mg/dL Lactate (0.5-1.9) mmol/L Calcium 8.5 (8.4-10.6) mg/dL Total Bilirubin 0.4 (0.1-1.5) mg/dL Direct Bilirubin (0.0-0.5) mg/dL AST 23 (12-35) U/L ALT 22 (4-35) U/L Alkaline Phosphatase 169 H (40-150) U/L C-Reactive Protein 16.8 H (0.5-1.0) mg/dL Total Protein 5.4 L (6.0-8.3) g/dL Albumin 2.9 L (3.3-5.0) g/dL Procalcitonin 0.07 (<0.50) ng/mL Urine Color (Yellow) Urine Appearance (Clear) Urine pH (5.0-8.5) Ur Specific [place] (1.000-1.030) Urine Protein (Negative) Urine Glucose (UA) (Negative) Urine Ketones (Negative) Urine Blood (Negative) Urine Nitrite (Negative) Urine Bilirubin (Negative) Urine Urobilinogen (0.2-1.0) Ur Leukocyte Esterase (Negative) Urine RBC (0-2) Urine WBC (0-5) Ur Squamous Epith Cells (None-Few) Urine Bacteria (None) SARS-CoV-2 (PCR) (Negative) Influenza Type A (PCR) (Negative) Influenza Type B (PCR) (Negative) RSV (PCR) (Negative) Discharge Plan Discharge Clinical Impression: Stage IV pressure ulcer, Fever Patient Disposition: Admitted As Inpatient
[2022-10-30] MEDS: 0.9 % SODIUM CHLORIDE 500 ML 500 ML IV (10:10)
[2022-10-30 10:18] LABS: Lactate* 1.3 mmol/L (0.5-1.9)
[2022-10-30 10:22] LABS: Appearance Urine Clear (Clear); Bilirubin Urine Negative (Negative); Blood Urine Trace-intact (Negative); Color Urine Yellow (Yellow); Glucose Urine Negative (Negative); Ketones Urine Negative (Negative); Leukocyte Esterase Urine 3+ (Negative); Nitrite Urine Positive (Negative); Protein Urine Negative (Negative); Specific Gravity Urine 1.015 (1.000-1.030); pH Urine 6.5 (5.0-8.5)
[2022-10-30 10:32] LABS: Basophils Percent Auto 0.3 % (0.0-3.0); Eosinophils Percent Auto 1.4 % (0.0-7.0); Hematocrit 41.1 % (33.0-51.0); Hemoglobin* 12.5 gm/dL (12.0-16.0); Immature Granulocytes Pct Auto 1.1 %; Lymphocytes Percent Auto 18.4 % (20-44); Mean Corpuscular HGB Conc 30 gm/dL (32-36); Mean Corpuscular Hemoglobin 28 pg (26-34); Mean Corpuscular Volume 90 fL (80-100); Monocytes Percent Auto 10.7 % (0.0-11.0); Neutrophils Percent Auto 68.1 % (42.0-72.0); Platelet Count* 413 K/uL (140-440); RDW Coefficient of Variation % 14.7 % (11.5-15.5); Red Blood Count 4.55 m/uL (4.00-5.20)
[2022-10-30 10:33] LABS: Slide Review Reflex No
[2022-10-30 10:36] LABS: Albumin* 3.3 g/dL (3.3-5.0); Chloride* 104 mmol/L (96-114)
[2022-10-30 10:37] LABS: Potassium* 3.5 mmol/L (3.6-5.1); Sodium* 139 mmol/L (135-149)
[2022-10-30 10:39] LABS: Creatinine* 0.4 mg/dL (0.5-1.5); Est. Creatinine Clearance* 34.91; Estimated Glomerular Filt Rate 103 ml/min
[2022-10-30 10:40] LABS: Alanine Aminotransferase* 23 U/L (4-35); Alkaline Phosphatase* 196 U/L (40-150); Aspartate Amino Transferase* 28 U/L (12-35); Bilirubin Direct* 0.3 mg/dL (0.0-0.5); Bilirubin Total* 0.8 mg/dL (0.1-1.5); Blood Urea Nitrogen* 20 mg/dL (7-30); Calcium* 8.9 mg/dL (8.4-10.6); Carbon Dioxide* 32 mmol/L (20-32); Glucose* 92 mg/dL (60-115)
[2022-10-30 10:42] LABS: RBC Urine 0-2 (0-2)
[2022-10-30 10:43] LABS: Bacteria Urine Moderate; Squamous Epithelial Cell Urine Few (None-Few)
[2022-10-30 11:13] LABS: PCR FLU A Negative PCR FLU A (Negative); PCR FLU B Negative PCR FLU B (Negative); PCR RSV Negative PCR RSV (Negative)
[2022-10-30 11:15] LABS: SARS PCR* Negative SARS-CoV-2 (Negative)
[2022-10-30 11:24] LABS: C Reactive Protein* 13.6 mg/dL (0.5-1.0)
[2022-10-30] MEDS: HYDROCODONE/ACETAMIN 7.5-325 TABLET 1 TAB PO ×2 (11:45→17:23)
--- NOTE | 2022-10-30 11:49 | ED.NURSE ---
pt repositioned in bed. c/o pain all over. pain meds ordered. pt sipping water, lunch ordered.
--- NOTE | 2022-10-30 13:04 | ED.NURSE ---
pt placed on hospital bed and repositioned. finished lunch, good appetite. pt states pain med helped. rating pain 5/10.
--- NOTE | 2022-10-30 17:17 | W.PC.EDHO ---
Primary Language: Preferred Language: Orientation Status: [] Alert & Oriented [] Slight Confusion [] Known Dx Dementia Transfers By: [] Assist of 1 [] Assist of 2 [] Lift Active Medications Discontinued Medications Generic Name Dose Route Start Last Admin Trade Name Mar PRN Reason Stop Dose Admin Hydrocodone Bitart/Acetaminophen 1 tab 10/30/22 11:38 10/30/22 11:45 Hydrocodone/Acetamin 7.5-325 Tablet PO 10/30/22 11:39 1 tab ONCE ONE Administration Sodium Chloride 500 mls @ 500 mls/hr 10/30/22 09:32 10/30/22 12:10 0.9 % Sodium Chloride 500 Ml IV 10/30/22 10:31 Infused .Q1H ONE Infusion Levofloxacin/Dextrose 500 mg 10/30/22 09:53 10/30/22 10:55 Levofloxacin 500 Mg/100 Ml IVPB 10/30/22 09:54 500 mg ONCE ONE Administration Description of Symptoms ED Triage Present Problem pt is a paraplegic. Has a bedsore. home health Description nurse thinks wound is infected. Wound has an odor . Seen at wound clinic. Fever of 101.7 overnight. Had chills Pain Pain Description [Right Sharp,Dull, Achy,Throbbing Buttock] Pain Intensity [Right Buttock] 5 Pain Intensity [Right Buttock] 5 Pain Intensity 4 Pain Intensity 4 Pain Intensity 4 Pain Intensity 5 Pain Intensity 6 Pain Intensity 6 Pain Intensity 5 Pain Intensity 5 Pain Scale Used [Right Buttock Numeric (1 - 10) ] Oxygen Administration Pulse Oximetry 90 Pulse Oximetry 91 Pulse Oximetry 92 Pulse Oximetry 91 Pulse Oximetry 91 Pulse Oximetry 91 Pulse Oximetry 91 Pulse Oximetry 93 Pulse Oximetry 94 Pulse Oximetry 92 Pulse Oximetry 93 Pulse Oximetry 95 Pulse Oximetry 94 Pulse Oximetry 95 Pulse Oximetry 96 Pulse Oximetry 97 Pulse Oximetry 100 Pulse Oximetry 96 Oxygen Delivery Method Room Air
[2022-10-30] MEDS: predniSONE 10 MG TABLET 30 MG PO (18:16)
[2022-10-30] MEDS: KETOROLAC 30 MG/ML inj IVP (18:16)
--- NOTE | 2022-10-30 18:25 | PM.IMHP1 ---
Hospitalist- H&P: HPI History of Present Illness Date Seen: 10/30/22 Chief complaint: Bed sores Narrative: ADMISSION HISTORY AND PHYSICAL - HOSPITALIST Chief Complaint: HPI: Mary is here with increasing discharge, smell and pain associated with her known stage IV buttock decubitus ulcer. She was here just about 1 year ago for sepsis related to multiple decubitus ulcers including the 1 we see tr. She ultimately transition to oral antibiotics and home care. She was followed by the wound care clinic over the last year. She has seen approximately once a week. She has an extensive wound care file. Used everything from hyperbaric oxygen treatments, wound VAC,Kerecis treatments. Apparently she has not had this surgically debrided in the operating room, but has had wound care clinic bedside debridements. The trajectory over the last year has been overall positive. He is down to just 1 open wound. She felt better about her energy and her ability to move and transfer. However starting at about Angie 2021, so over the last 2-3 weeks, her pain has increased and she has had to spend more time in bed. She is having more discharge, that is malodorous. She reportedly had a fever with her home health nurse and secondary to the increasing discharge, pain, odor she called 911 and had the patient brought in by ambulance earlier today. ER COURSE: -Given IV Levaquin -labs and cultures obtained prior to antibiotics -admitted to the hospital service CODE STATUS: FULL EMERGENCY CONTACT PLAN: daughter I've updated the PFSH, medications and allergies in the [facility] tabs. INVESTIGATIONS: LABS/MICRO/ECG/IMAGING Afebrile since arrival in the ED Blood pressure as low as 99/48, currently 126/58 Consistently tachycardic since arrival 122 to 113 Pulse ox 95% on room air Respiratory rate 18, unlabored Weight is 65 kilos Wound culture, blood cultures and urine culture are all pending. CBC reflects an elevated white blood cell count, 15.0, 68% neutrophils Stable hemoglobin at 12.5 Platelet count 413 Potassium is a little low at 3.5 otherwise her electrolytes are otherwise normal including her glucose, calcium and LFTs. There is 1 exception in that her alk-phos has climbed from 114 in August up to 196 CRP is 13.6 Procalcitonin is pending EKG was not done in the ER, we will order this on the floor Abd/Pelvic CT 1/18/23 Chronic right posterior ischial soft tissue ulcer with adjacent deep fluid collection and chronic osteomyelitis of the right posterior iliac bone. Overall, the findings are similar to the prior studies. Nonobstructing right renal stones measuring up to 1.2 cm. Increased stool within the rectum suggesting constipation. Mild circumferential wall thickening of the rectum is less conspicuous when compared to the prior study. REVIEW OF SYSTEMS: 12-point ROS completed with patient and negative unless otherwise stated in HPI or below. PHYSICAL EXAM: CODE STATUS: Full CONSTITUTIONAL: Conversive, good historian. A/O. Knows setting and context. VITAL SIGNS: see record. HEENT: Normocephalic, atraumatic. PERRL, EOMI, conjunctivae pink, no scleral icterus. Ears and nose externally normal. Pharynx normal. NECK: No JVD. No carotid bruit, no thyromegaly, no adenopathy. CHEST: Clear to auscultation bilaterally HEART: S1 and S2 normal. No harsh murmurs. no edema MUSCULOSKELETAL: Muscle wasting, atrophy noted in her bilateral extremities. Paraplegic. NEURO: Generally weak 3/5 upper extremities. Paraplegia in the lower extremities. No lateralizing signs. SKIN: Right buttock reveals a open deep wound. Approximately 2 x 4 x 4 cm. Impressively malodorous. Green discharge rinsed from the wound bed. No bleeding. No foreign bodies. PSYCHIATRIC: Euthymic. ADMIT TO MEDSURG: FLOOR CARE DVT: Lovenox GI: PO intake Time spent: 70 minutes examining patient, conferring with family and patient, care staff, developing care plan [facility] Medical History (Updated 10/30/22 @ 21:06 by Melvi Bear MD) Chronic pain History of methicillin resistant Staphylococcus aureus infection HTN (hypertension) Neurogenic bladder Osteoporosis Paraplegia Recurrent urinary tract infection Rheumatoid arthritis Septic shock Transverse myelopathy syndrome Tubular adenoma of colon Social History Highest level of school completed/degree received: decline to answer Smoking Status: Never smoker Do you use any of these nicotine containing products: None and E-Cigarettes How often do you have a drink containing alcohol: never How often do you have six or more drinks on one occasion: Never AUDIT-C Alcohol total score: 0 Non-prescribed substance use: denies use Caffeine: No service: No Meds Home Medications and Allergies Home Medications Medication Instructions Recorded Confirmed Type lactobacillus combination no.4 3 3,000 mmu cells PO DAILY 07/10/22 10/30/22 History billion cell capsule (Probiotic) multivitamin (Daily Multi-Vitamin 1 tab PO DAILY 07/10/22 10/30/22 History tablet) aspirin 81 mg tablet,delayed 81 mg PO DAILY 07/25/22 10/30/22 History release naproxen sodium 220 mg tablet 220 mg PO BID PRN 07/25/22 10/30/22 History pseudoephedrine HCl 30 mg tablet 30 mg PO BID PRN 07/25/22 10/30/22 History celecoxib 200 mg capsule 200 mg PO BID 10/30/22 10/30/22 History furosemide 20 mg tablet 20 mg PO DAILY 10/30/22 10/30/22 History metoprolol succinate 50 mg 50 mg PO DAILY 10/30/22 10/30/22 History tablet,extended release 24 hr prednisone 5 mg tablet 10 mg PO DAILY 10/30/22 10/30/22 History Allergies Allergy/AdvReac Type Severity Reaction Status Date / Time vancomycin Allergy Severe Hives Verified 10/30/22 18:17 piperacillin Allergy Intermediate Rash Verified 09/12/22 11:43 tazobactam Allergy Intermediate Rash Verified 09/12/22 11:43 Exam Const: Vital Signs, click to edit/add: Vital Signs - 24 hr 10/30/22 08:57 10/30/22 10:42 10/30/22 11:00 Temperature 98.4 F Pulse Rate 117 H 118 H Pulse Rate [Left P ulse Oximeter] Respiratory Rate 20 Blood Pressure Blood Pressure [Le ft Arm] Blood Pressure [Le ft Upper Arm] 125/87 Pulse Oximetry 96 100 97 Oxygen Delivery Me od Room Air 10/30/22 11:01 10/30/22 11:30 10/30/22 11:31 Temperature Pulse Rate 119 H 131 H 132 H Pulse Rate [Left P ulse Oximeter] Respiratory Rate Blood Pressure 107/62 111/50 L Blood Pressure [Le ft Arm] Blood Pressure [Le ft Upper Arm] Pulse Oximetry 96 95 94 Oxygen Delivery Me thod 10/30/22 11:49 10/30/22 11:32 10/30/22 13:00 Temperature 98.7 F Pulse Rate 134 H 122 H Pulse Rate [Left P ulse Oximeter] Respiratory Rate Blood Pressure 109/38 L Blood Pressure [Le ft Arm] Blood Pressure [Le ft Upper Arm] Pulse Oximetry 95 93 Oxygen Delivery Me thod 10/30/22 13:01 10/30/22 13:02 10/30/22 13:03 Temperature Pulse Rate 122 H 122 H 121 H Pulse Rate [Left P ulse Oximeter] Respiratory Rate Blood Pressure 107/35 L Blood Pressure [Le ft Arm] Blood Pressure [Le ft Upper Arm] Pulse Oximetry 92 94 93 Oxygen Delivery Me thod 10/30/22 14:00 10/30/22 14:01 10/30/22 15:00 Temperature Pulse Rate 108 H 109 H 107 H Pulse Rate [Left P ulse Oximeter] Respiratory Rate Blood Pressure 99/48 L Blood Pressure [Le ft Arm] Blood Pressure [Le ft Upper Arm] Pulse Oximetry 91 91 91 Oxygen Delivery Me thod 10/30/22 15:01 10/30/22 16:25 10/30/22 15:02 Temperature 97.7 F Pulse Rate 109 H 108 H Pulse Rate [Left P ulse Oximeter] Respiratory Rate Blood Pressure 110/50 L Blood Pressure [Le ft Arm] Blood Pressure [Le ft Upper Arm] Pulse Oximetry 91 92 Oxygen Delivery Me thod 10/30/22 16:00 10/30/22 16:01 10/30/22 16:02 Temperature Pulse Rate 109 H 112 H 116 H Pulse Rate [Left P ulse Oximeter] Respiratory Rate Blood Pressure 114/48 L Blood Pressure [Le ft Arm] Blood Pressure [Le ft Upper Arm] Pulse Oximetry 91 90 91 Oxygen Delivery Me thod 10/30/22 17:01 10/30/22 17:02 10/30/22 17:40 Temperature 97 F L Pulse Rate 110 H Pulse Rate [Left P ulse Oximeter] 113 H Respiratory Rate 18 Blood Pressure 129/52 L Blood Pressure [Le ft Arm] 126/58 L Blood Pressure [Le ft Upper Arm] Pulse Oximetry 91 95 Oxygen Delivery Me thod Room Air Hospitalist - H&P: Result Labs Labs: Short CBC 10/30/22 Range/Units 10:05 WBC 15.00 H (4.50-11.00) K/uL Hgb 12.5 (12.0-16.0) gm/dL Hct 41.1 (33.0-51.0) % Plt Count 413 (140-440) K/uL BMP 10/30/22 10:05 Sodium 139 Potassium 3.5 L Chloride 104 Carbon Dioxide 32 BUN 20 Creatinine 0.4 L Glucose 92 Calcium 8.9 Liver Function 10/30/22 Range/Units 10:05 Total Bilirubin 0.8 (0.1-1.5) mg/dL Direct Bilirubin 0.3 (0.0-0.5) mg/dL AST 28 (12-35) U/L ALT 23 (4-35) U/L Alkaline Phosphatase 196 H (40-150) U/L Albumin 3.3 (3.3-5.0) g/dL Urine 10/30/22 Range/Units 10:05 Urine Color Yellow (Yellow) Urine Appearance Clear (Clear) Urine pH 6.5 (5.0-8.5) Ur Specific [place] 1.015 (1.000-1.030) Urine Protein Negative (Negative) Urine Glucose (UA) Negative (Negative) Assessment and Plan Assessment and plan (1) 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, stage 4: Problem comment: -long standing history. no OR debridement in the past. She has done HBO, wound vac, Kerecis with wound care over the last year -consulted wound clinic, Marcela Malik. Discussed with Dr. Gallegos. Cultures are obtained. b/c of allergies on Levaquin. Updating CT this evening. -will make NPO and D5LR at midnight in case OR debridement necessary. -tachycardic, but afebrile and mentating normal. BP is normal. -CT reviewed - will await surgical consult. 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 hydrocodone, toradol prn scheduled tylenol Status: Acute (6) HTN (hypertension): Problem comment: continue metoprolol but with hold parameters. Status: Acute (7) Rheumatoid arthritis: Problem comment: on daily prednisone, will increase prednisone for the short course Status: Acute
--- NOTE | 2022-10-30 18:36 | CRLHL7_ITS ---
For Patients: As a result of the Century Cures Act, medical imaging exams and procedure reports are released immediately into your electronic medical record. You may view this report before your referring provider. If you have questions, please contact your health care provider. Indication: right buttock ulcer; osteo Technique: Postcontrast CT abdomen and pelvis. 77 cc Isovue 370 intravenous contrast. Please note that all CT scans at this facility use dose modulation, iterative reconstruction, and/or weight-based dosing when appropriate to reduce radiation dose to as low as reasonably achievable. Comparison: CT 04/29/2022. MRI 12/30/2021 Findings: Linear subsegmental atelectasis noted in both lung bases. No pleural effusion. No free intraperitoneal air. Extensive muscle atrophy noted. No intrahepatic mass. Gallbladder absent. No biliary obstruction. No pancreatic lesion. Spleen normal. Adrenal glands unremarkable. Left extrarenal pelvis is present. Normal left ureter. Cristobal catheter in the bladder. Right ureter is normal. There are nonobstructing stones within the lower pole collecting system of the right kidney measuring 1.2 cm. Atherosclerotic disease. No bowel obstruction is present. Incidental distal duodenal diverticulum measuring 3.1 cm. Increased stool within the rectum. No pelvic soft tissue mass. Chronic right ischial soft tissue ulcer. There is a fluid collection with an enhancing rim adjacent to the right ischium with associated destructive change in the right posterior ischial bone findings appear similar to prior studies. Scoliotic deformity with postop changes. Impression: Chronic right posterior ischial soft tissue ulcer with adjacent deep fluid collection and chronic osteomyelitis of the right posterior iliac bone. Overall, the findings are similar to the prior studies. Nonobstructing right renal stones measuring up to 1.2 cm. Increased stool within the rectum suggesting constipation. Mild circumferential wall thickening of the rectum is less conspicuous when compared to the prior study. Please note that all CT scans at this facility use dose modulation, iterative reconstruction, and/or weight-based dosing when appropriate to reduce radiation dose to as low as reasonably achievable. Dictated by Jeremiah Nicholson MD @ 10/30/2022 8:05:32 PM (Electronically Signed)
[2022-10-30 19:18] LABS: Procalcitonin* 0.07 ng/mL (<0.50)
--- NOTE | 2022-10-30 20:07 | PC.NURSE ---
shift note: pt to rm @ [address] Bear at bedside. rt mid buttock irrigated with sterile 0.9% NS then packed with wet 4x4 kerlex then topped with dry kerlex. sacral mepilex applied to cover drsg. Iv patent to rt hand
[2022-10-30] MEDS: ACETAMINOPHEN 325 MG TABLET 975 MG PO (20:26)
[2022-10-30] MEDS: HYDROCODONE-ACETAMIN 5-325 MG 1 TAB PO (22:48)
[2022-10-30] MEDS: GABAPENTIN 300 MG CAPSULE PO (22:48)
[2022-10-31] VITALS (9 sets, daily range): BP systolic 100–163; BP diastolic 51–78; PULSE 84–119; RESP 16–18; TEMP 36.1–37; O2SAT 93–98; BMI 28.1
[2022-10-31] MEDS: 5 % DEXTROSE IN LAC RINGER'S 1,000 ML 75 ML IV (01:27)
[2022-10-31] MEDS: ACETAMINOPHEN 325 MG TABLET 975 MG PO ×2 (02:43→18:04)
--- NOTE | 2022-10-31 05:41 | PC.NURSE ---
Pt alert and oriented x3, pleasant and cooperative. Afebrile. Pt denies pain, chest pain, SOB, and N/V. Pt dressing to right buttocks is CDI. Pt is turn and reposition Q2h, pt is able to make slight?independent movements in bed and helps with turns. Pt has delacruz that is patent and draining. Pt is NPO.???
[2022-10-31 06:48] LABS: Basophils Percent Auto 0.1 % (0.0-3.0); Hematocrit 35.7 % (33.0-51.0); Hemoglobin* 10.9 gm/dL (12.0-16.0); Immature Granulocytes Pct Auto 1.3 %; Lymphocytes Percent Auto 10.1 % (20-44); Mean Corpuscular HGB Conc 31 gm/dL (32-36); Mean Corpuscular Hemoglobin 27 pg (26-34); Mean Corpuscular Volume 90 fL (80-100); Monocytes Percent Auto 1.6 % (0.0-11.0); Neutrophils Percent Auto 86.9 % (42.0-72.0); Platelet Count* 407 K/uL (140-440); RDW Coefficient of Variation % 14.7 % (11.5-15.5); Red Blood Count 3.98 m/uL (4.00-5.20); White Blood Count* 16.07 K/uL (4.50-11.00)
[2022-10-31 07:00] LABS: Slide Review Reflex No
[2022-10-31 07:13] LABS: Chloride* 106 mmol/L (96-114)
[2022-10-31 07:14] LABS: Albumin* 2.9 g/dL (3.3-5.0); Potassium* 4.2 mmol/L (3.6-5.1); Sodium* 138 mmol/L (135-149)
[2022-10-31 07:17] LABS: Alanine Aminotransferase* 22 U/L (4-35); Alkaline Phosphatase* 169 U/L (40-150); Aspartate Amino Transferase* 23 U/L (12-35); Bilirubin Total* 0.4 mg/dL (0.1-1.5); Carbon Dioxide* 27 mmol/L (20-32); Creatinine* 0.5 mg/dL (0.5-1.5); Est. Creatinine Clearance* 34.91; Estimated Glomerular Filt Rate 98 ml/min; Total Protein* 5.4 g/dL (6.0-8.3)
[2022-10-31 07:18] LABS: Blood Urea Nitrogen* 24 mg/dL (7-30); Calcium* 8.5 mg/dL (8.4-10.6); Glucose* 259 mg/dL (60-115); INR 1.01 (0.91-1.10); Prothrombin Time 13.9 Seconds
[2022-10-31 07:34] LABS: Procalcitonin* 0.07 ng/mL (<0.50)
[2022-10-31 07:36] LABS: C Reactive Protein* 16.8 mg/dL (0.5-1.0)
[2022-10-31] MEDS: FUROSEMIDE 20 MG TABLET PO (09:43)
[2022-10-31] MEDS: levoFLOXacin 500 MG TABLET PO (09:44)
[2022-10-31] MEDS: METOPROLOL SUCCINATE (XL) 50 MG TAB PO (09:44)
[2022-10-31] MEDS: GABAPENTIN 300 MG CAPSULE PO ×2 (09:44→19:44)
[2022-10-31] MEDS: KETOROLAC 30 MG/ML inj IVP (09:45)
[2022-10-31] MEDS: HYDROCODONE-ACETAMIN 5-325 MG 1 TAB PO ×2 (09:45→19:43)
--- NOTE | 2022-10-31 10:03 | PC.SOCIAL ---
Spoke with pt. to discuss discharge plans. Pt. has [facility] for her wound and her spouse has dementia. The recommendation is a longterm. Pt. is agreeable to a short term rehab bed. Pt.'s top choices for a SNF are: 1) [facility]-No bed available 2)[facility]-Pt.'s information has been sent to assess. 3) [facility]? [facility] in [place]
--- NOTE | 2022-10-31 11:50 | P.IMCN_ITS ---
Date of Consult Consult date: 10/31/22 Requesting Physician: Hospitalist Primary Care Provider: Flo Mckeon MD Consult Narrative Reason for consult: known wound center patient- hospitalized Narrative: Prerna Major is a 76 year old female known well to wound services, and this appeals writer. Mary has been been seen through our wound center frequently over the past year for stage 4 IT pressure ulcer. A year ago she was hospitalized with sepsis. Patient has complex PMH, including paraplegia r/t transverse myelitis at a young age, as well as rheumatoid arthritis which was without treatment for nearly 6 months in 2021 d/t patient financial/transportation barriers to be seen by rheumatology. She lives independent in her own home with her whom has dementia. Patient is reliant on medical transportation and had utilized [facility] to attend her appt. in the wound center, unfortunately [facility] withdrew services from our geographic location and patient has been unable to obtain alternative transportation; thus she has not been seen in the Wound Center since 10/08/23. Wound care course has included consults with general surgery, infectious disease, primary care, serial sharp debridement, nutritional status optimized, woundvac, skin sub grafts, and hyperbaric oxygen therapy. We have also requested [facility] to complete assessments on patient multiple times over the past year to see if she could get more support resources and they have been unable to provide any assistance for patient. As patient has needed additional care and support there have also been attempts to get her into a SNF from her home, but insurance would not approve coverage of the care. Initially patient was resistant to getting the recommended pressure relieving support surface and continued to utilize her sleep number bed in her home, d/t this insurance would not approve use of woundvac or any other advanced modalities, and wound continued to progress to osteomyelitis, which was confirmed via CT April 2022. Consult with infectious disease at [facility] occurred at that time and patient completed recommended course of antibiotic treatments, and has had flare-ups with repeat courses of antibiotics to cover for wound cultures positive for MRSA and strep dysgalactiae. Currently, home health nursing is seeing patient 3xweekly to complete her wound care needs. D/t her mobility limitations and lack of assistance, she continues to struggle to reposition her self at home, She does have a group 2 pressure relieving mattress overlay. She was seen by home health nursing on 10/28/22 who reported patient had been laying in bed all weekend, with concerns appropriate offloading of wound was not occurring. I do believe that patient's home environment is a barrier to her healing her stage IV pressure ulcer. on 10/28/22 home health nurse clinical case manager did provide wound center with updated pictures of wound that did show a small area of eschar to the superior aspect of wound, but it was reported no malodor after cleansing and nursing felt wound had improved since last seen 3 days prior to that. However, yesterday patient had called her home health nurse clinical case manager and reported new worsening pain in the wound, malodors coming from wound and a fever. They had notified our wound center about concerns of infection to wound and change in wound status, wound services had recommended she be seen in the ER for concerns of infection to the wound- she was brought via ambulance. CT completed yesterday showed chronic osteomyelitis, comparable to previous CT in April 2022. My examination of wound is concerning for wound deterioration. Compared to pictures provided by home health nursing on 10/28/22 and how the wound appears today there is an increase in amount of necrotic tissue, specifically new wet eschar to inferior aspect of wound, increase in depth, and tenderness to wound on examination which is new when compared to when patient was last seen 3 weeks ago by this appeals writer. Review of Systems Status of ROS: Reports: 6 or more systems reviewed and unremarkable except as noted in History and below [facility] Medical History (Updated 11/07/22 @ 00:00 by ) Acute on chronic anemia Anemia Chronic pain Chronic steroid use Diarrhea History of methicillin resistant Staphylococcus aureus infection HTN (hypertension) Neurogenic bladder Osteoporosis Paraplegia Recurrent urinary tract infection Rheumatoid arthritis Septic shock Transverse myelopathy syndrome Tubular adenoma of colon Social History Highest level of school completed/degree received: decline to answer Smoking Status: Never smoker Do you use any of these nicotine containing products: None and E-Cigarettes How often do you have a drink containing alcohol: never How often do you have six or more drinks on one occasion: Never AUDIT-C Alcohol total score: 0 Non-prescribed substance use: denies use Caffeine: No service: No Meds Home Medications and Allergies Home Medications Medication Instructions Recorded Confirmed Type lactobacillus combination no.4 3 3,000 mmu cells PO DAILY 07/10/22 10/30/22 History billion cell capsule (Probiotic) multivitamin (Daily Multi-Vitamin 1 tab PO DAILY 07/10/22 10/30/22 History tablet) pseudoephedrine HCl 30 mg tablet 30 mg PO BID PRN 07/25/22 10/30/22 History furosemide 20 mg tablet 20 mg PO DAILY 10/30/22 10/30/22 History metoprolol succinate 50 mg 50 mg PO DAILY 10/30/22 10/30/22 History tablet,extended release 24 hr prednisone 5 mg tablet 10 mg PO DAILY 10/30/22 10/30/22 History Allergies Allergy/AdvReac Type Severity Reaction Status Date / Time vancomycin Allergy Severe Hives Verified 10/30/22 18:17 piperacillin Allergy Intermediate Rash Verified 09/12/22 11:43 tazobactam Allergy Intermediate Rash Verified 09/12/22 11:43 Exam Narrative: Exam Narrative: General: NAD Cardiac: pedal pulses strong Pulmonary: unlabored breathing. Speaking in full sentences. BLE: wrapped in velcro compression GI/: delacruz in place Right buttock/IT stage 4 pressure ulcer (see pictures below): malodorous post cleansing. 2.7cmX3.7cmX4.2cm, 3.7 tunnel at 12 o'clock50% necrotic tissue, 50% healthy granulation. large serosang drainage. tender in palpation. min. edema to periwound. no induration to periwound. Const: Vital Signs, click to edit/add: Vital Signs - 24 hr 10/30/22 13:00 10/30/22 13:01 10/30/22 13:02 Temperature Pulse Rate 122 H 122 H 122 H Pulse Rate [Left P ulse Oximeter] Respiratory Rate Blood Pressure 109/38 L 107/35 L Blood Pressure [Le ft Arm] Pulse Oximetry 93 92 94 Oxygen Delivery Me thod 10/30/22 13:03 10/30/22 14:00 10/30/22 14:01 Temperature Pulse Rate 121 H 108 H 109 H Pulse Rate [Left P ulse Oximeter] Respiratory Rate Blood Pressure 99/48 L Blood Pressure [Le ft Arm] Pulse Oximetry 93 91 91 Oxygen Delivery Ar thod 10/30/22 15:00 10/30/22 15:01 10/30/22 16:25 Temperature 97.7 F Pulse Rate 107 H 109 H Pulse Rate [Left P ulse Oximeter] Respiratory Rate Blood Pressure 110/50 L Blood Pressure [Le ft Arm] Pulse Oximetry 91 91 Oxygen Delivery Me thod 10/30/22 15:02 10/30/22 16:00 10/30/22 16:01 Temperature Pulse Rate 108 H 109 H 112 H Pulse Rate [Left P ulse Oximeter] Respiratory Rate Blood Pressure 114/48 L Blood Pressure [Le ft Arm] Pulse Oximetry 92 91 90 Oxygen Delivery Me thod 10/30/22 16:02 10/30/22 17:01 10/30/22 17:02 Temperature Pulse Rate 116 H 110 H Pulse Rate [Left P ulse Oximeter] Respiratory Rate Blood Pressure 129/52 L Blood Pressure [Le ft Arm] Pulse Oximetry 91 91 Oxygen Delivery Me od 10/30/22 17:40 10/30/22 17:40 10/30/22 17:40 Temperature 97 F L 97 F L Pulse Rate Pulse Rate [Left P ulse Oximeter] 113 H 113 H Respiratory Rate 18 16 18 Blood Pressure Blood Pressure [Le ft Arm] 126/58 L 126/58 L Pulse Oximetry 95 95 95 Oxygen Delivery Me od Room Air Room Air Room Air 10/30/22 17:30 10/30/22 18:10 10/30/22 19:26 Temperature 97 F L Pulse Rate Pulse Rate [Left P ulse Oximeter] 113 H Respiratory Rate 16 18 Blood Pressure Blood Pressure [Le ft Arm] 126/58 L Pulse Oximetry 95 94 94 Oxygen Delivery Me [facility] Room Air Room Air 10/30/22 23:00 10/30/22 23:00 10/31/22 03:27 Temperature 96.9 F L Pulse Rate Pulse Rate [Left P ulse Oximeter] 86 98 Respiratory Rate 16 Blood Pressure Blood Pressure [Le ft Arm] 126/65 Pulse Oximetry 94 94 Oxygen Delivery Me od Room Air 10/31/22 07:00 10/31/22 07:00 10/31/22 07:00 Temperature 97.0 F L Pulse Rate Pulse Rate [Left P ulse Oximeter] 119 H 119 H Respiratory Rate 18 18 Blood Pressure Blood Pressure [Le ft Arm] 163/75 H Pulse Oximetry 94 95 Oxygen Delivery Me od Room Air Documenting provider has reviewed patient's vital signs: yes Labs Labs: Short CBC 10/31/22 Range/Units 05:59 WBC 16.07 H (4.50-11.00) K/uL Hgb 10.9 L (12.0-16.0) gm/dL Hct 35.7 (33.0-51.0) % Plt Count 407 (140-440) K/uL BMP 10/31/22 05:59 Sodium 138 Potassium 4.2 Chloride 106 Carbon Dioxide 27 BUN 24 Creatinine 0.5 Glucose 259 H Calcium 8.5 Liver Function 10/31/22 Range/Units 05:59 Total Bilirubin 0.4 (0.1-1.5) mg/dL AST 23 (12-35) U/L ALT 22 (4-35) U/L Alkaline Phosphatase 169 H (40-150) U/L Albumin 2.9 L (3.3-5.0) g/dL Assessment and Plan Assessment and plan (1) Paraplegia: Problem comment: since age 6; muscle atrophy (chronic) bilaterally Status: Acute (2) Rheumatoid arthritis: Problem comment: on daily prednisone Status: Acute (3) 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 Last April had MRSA cultured from wound. Oral antibiotics with cefadroxil for group C strep and doxycycline for history of MRSA. Likely will need long-term course of treatment due to chronic osteomyelitis Status: Acute Plan Spoke with patient regarding recommendations that when she is stabilized and ready for discharge from hospital that she would best be served to transition to a SNF, so that she can receive wound care and physical therapy. Patient verbalized agreement that she would best benefit from discharging from hospital to SNF. Notified hospitalist of this recommendation and social insurance administrator to assist in possible placement. Stage 4 PU right buttock/IT: with visualized deterioration of wound on examination, presence of increased necrotic tissue, presence of pain, and fever prior to admission, feel she would best be served by an OR debridement. Discussed this with General surgery on-call surgeon, who graciously has agreed to evaluate patient.
[2022-10-31] MEDS: BUPIVACAINE 0.25% 30 ML INJECTION (13:37)
--- NOTE | 2022-10-31 13:42 | REH.PT ---
PT/OT luiz held d/t pt undergoing I&D.
--- NOTE | 2022-10-31 13:44 | W.ANESCHARGE ---
Anesthesia Charges Start Date/Time Anesthesia Start Date: 10/31/22 Anesthesia Start Time: 13:12 Stop Date/Time Anesthesia Stop Date: 10/31/22 Anesthesia Stop Time: 14:25 Summary Emergency: No Extremes of Age: Over 71-CPT 35025
--- NOTE | 2022-10-31 13:44 | REH.OT ---
OT eval on hold today d/t surgery in PM.
--- NOTE | 2022-10-31 13:52 | SUR.OPER ---
Provider requested culturette to put wound tissue in for culture
--- NOTE | 2022-10-31 14:08 | W.ANESCHARGE ---
Anesthesia Charges Start Date/Time Anesthesia Start Date: 10/31/22 Anesthesia Start Time: 13:12 Stop Date/Time Anesthesia Stop Date: 10/31/22 Anesthesia Stop Time: 14:25 Summary Emergency: No Extremes of Age: Over 71-CPT 36150
--- NOTE | 2022-10-31 14:16 | PM.GSPRC ---
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 He has had a chronic ischial wound on the right and had been treated in our wound center. She eventually developed osteomyelitis and had been undergoing hyperbaric oxygen. This had to be discontinued secondary to staffing availability and she has been undergoing dressing changes with home health. Over the past few days her home health nurses have noticed her wound is more foul appearing. The wound was examined and found to contain necrotic tissue. CT scan showed persistent osteomyelitis unchanged from prior. The patient agreed to proceed with wound debridement and culture. Procedure Description: After discussing the risks and benefits of the procedure, the patient signed informed consent.? The operative site was marked and the patient was brought to the operating room and placed on the operating table in left lateral decubitus position.? Care was taken to pad the patient's pressure points.?? The patient was then given sedation by anesthesia.?? The operative site was then prepped and draped in the usual sterile fashion.? A time-out was then performed. The wound was examined. There was necrotic tissue posteriorly and anteriorly though medially the tissue was fairly healthy. The wound is probed with my finger and no bone was palpated. The bone all appeared to be covered by soft tissue. I began by using cautery to excise the necrotic tissue down to healthy bleeding subcutaneous fat. Anteriorly there was significant amount of thick scar tissue. This was excised again to bleeding fat. Several pieces of tissue were removed with a scissor and sent for culture. The deepest portion of the wound was anteriorly on the ischium. There was some necrotic tissue over this. A rongeur was used to excise this, but still the bone remained covered by subcutaneous tissue. Posteriorly I noted a cavity which was on drained. I was able to fit my finger in here and there was an additional cavity posterior to the ischial tuberosity measuring approximately 3 by 2 x 2 cm. A small amount of fluid that came out. Using cautery, I was able to open this space to allow packing. Hemostasis was then achieved with cautery. Once the wound had been appropriately debrided, the Pulsavac was used to wash the wound. Vashe- soaked Kerlix was then placed in the wound. A dressing was applied ? The patient was then woken and transported to the recovery area in stable condition. ? The patient tolerated the procedure well. Findings: Superficial necrotic fat within the wound. Bone covered by subcutaneous tissue. Undrained/unpacked cavity posterior to ischium Anesthesia: MAC Surgeon: Maria D Gallegos MD Estimated blood loss (mL): 10 Specimen: Other Additional Specimen Information: Buttock wound tissue for culture Condition: stable Disposition: floor
--- NOTE | 2022-10-31 14:16 | PM.GSCN ---
History of Present Illness Consult details Date Seen: 10/31/22 Consult date: 10/31/22 Narrative: The patient is a 76-year-old female known to wound clinic with a stage IV ischial tuberosity pressure ulcer on the right. The wound is been present for approximately 1 year. She was hospitalized with sepsis at that time. She eventually developed osteomyelitis noted on CT in April of 2022. She had been undergoing hyperbaric oxygen therapy as well as dressing changes in the wound center here at [facility], however because of financial constraints and also hyperbaric oxygen availability she was more recently getting dressing changes with home health. Her home health nurses have noted that lately her wound has had foul-smelling drainage and been more painful. The patient came into the emergency department yesterday and was found to continue to have CT findings which were unchanged however some mild cellulitis around the wound and necrotic tissue in the wound. [facility] Medical History (Updated 10/30/22 @ 21:06 by Melvi Bear MD) Chronic pain History of methicillin resistant Staphylococcus aureus infection HTN (hypertension) Neurogenic bladder Osteoporosis Paraplegia Recurrent urinary tract infection Rheumatoid arthritis Septic shock Transverse myelopathy syndrome Tubular adenoma of colon Social History Highest level of school completed/degree received: decline to answer Smoking Status: Never smoker Do you use any of these nicotine containing products: None and E-Cigarettes How often do you have a drink containing alcohol: never How often do you have six or more drinks on one occasion: Never AUDIT-C Alcohol total score: 0 Non-prescribed substance use: denies use Caffeine: No service: No Meds Home Medications and Allergies Home Medications Medication Instructions Recorded Confirmed Type lactobacillus combination no.4 3 3,000 mmu cells PO DAILY 07/10/22 10/30/22 History billion cell capsule (Probiotic) multivitamin (Daily Multi-Vitamin 1 tab PO DAILY 07/10/22 10/30/22 History tablet) aspirin 81 mg tablet,delayed 81 mg PO DAILY 07/25/22 10/30/22 History release naproxen sodium 220 mg tablet 220 mg PO BID PRN 07/25/22 10/30/22 History pseudoephedrine HCl 30 mg tablet 30 mg PO BID PRN 07/25/22 10/30/22 History celecoxib 200 mg capsule 200 mg PO BID 10/30/22 10/30/22 History furosemide 20 mg tablet 20 mg PO DAILY 10/30/22 10/30/22 History metoprolol succinate 50 mg 50 mg PO DAILY 10/30/22 10/30/22 History tablet,extended release 24 hr prednisone 5 mg tablet 10 mg PO DAILY 10/30/22 10/30/22 History Allergies Allergy/AdvReac Type Severity Reaction Status Date / Time vancomycin Allergy Severe Hives Verified 10/30/22 18:17 piperacillin Allergy Intermediate Rash Verified 09/12/22 11:43 tazobactam Allergy Intermediate Rash Verified 09/12/22 11:43 Exam Narrative: Exam Narrative: General appearance: Alert, cooperative, and in no distress Pulmonary: Breathing nonlabored on room air Cardiovascular Heart: Regular rate Skin: On her right buttock, she has approximately 3 x 4 cm wound. There is very mild surrounding erythema. Within the wound there is greenish drainage and necrotic tissue nearly circumferentially but scattered within the wound. Psychiatric: Alert, oriented, cooperative, normal affect. Const: Vital Signs, click to edit/add: Vital Signs - 24 hr 10/30/22 15:00 10/30/22 15:01 10/30/22 16:25 Temperature 97.7 F Pulse Rate 107 H 109 H Pulse Rate [Left P ulse Oximeter] Respiratory Rate Blood Pressure 110/50 L Blood Pressure [Le ft Arm] Pulse Oximetry 91 91 Oxygen Delivery [facility] 10/30/22 15:02 10/30/22 16:00 10/30/22 16:01 Temperature Pulse Rate 108 H 109 H 112 H Pulse Rate [Left P ulse Oximeter] Respiratory Rate Blood Pressure 114/48 L Blood Pressure [Le ft Arm] Pulse Oximetry 92 91 90 Oxygen Delivery [facility] 10/30/22 16:02 10/30/22 17:01 10/30/22 17:02 Temperature Pulse Rate 116 H 110 H Pulse Rate [Left P ulse Oximeter] Respiratory Rate Blood Pressure 129/52 L Blood Pressure [Le ft Arm] Pulse Oximetry 91 91 Oxygen Delivery [facility] 10/30/22 17:40 10/30/22 17:40 10/30/22 17:40 Temperature 97 F L 97 F L Pulse Rate Pulse Rate [Left P ulse Oximeter] 113 H 113 H Respiratory Rate 18 16 18 Blood Pressure Blood Pressure [Le ft Arm] 126/58 L 126/58 L Pulse Oximetry 95 95 95 Oxygen Delivery [facility] Room Air Room Air Room Air 10/30/22 17:30 10/30/22 18:10 10/30/22 19:26 Temperature 97 F L Pulse Rate Pulse Rate [Left P ulse Oximeter] 113 H Respiratory Rate 16 18 Blood Pressure Blood Pressure [Le ft Arm] 126/58 L Pulse Oximetry 95 94 94 Oxygen Delivery [facility] Room Air Room Air 10/30/22 23:00 10/30/22 23:00 10/31/22 03:27 Temperature 96.9 F L Pulse Rate Pulse Rate [Left P ulse Oximeter] 86 98 Respiratory Rate 16 Blood Pressure Blood Pressure [Le ft Arm] 126/65 Pulse Oximetry 94 94 Oxygen Delivery [facility] Room Air 10/31/22 07:00 10/31/22 07:00 10/31/22 07:00 Temperature 97.0 F L Pulse Rate Pulse Rate [Left P ulse Oximeter] 119 H 119 H Respiratory Rate 18 18 Blood Pressure Blood Pressure [Le ft Arm] 163/75 H Pulse Oximetry 94 95 Oxygen Delivery [facility] Room Air 10/31/22 11:00 Temperature 97.6 F Pulse Rate Pulse Rate [Left P ulse Oximeter] 94 Respiratory Rate 16 Blood Pressure Blood Pressure [Le ft Arm] 145/78 H Pulse Oximetry 98 Oxygen Delivery [facility] Room Air Results Labs Labs: Abnormal lab results 10/31/22 10/31/22 Range/Units 05:59 05:59 WBC 16.07 H (4.50-11.00) K/uL RBC 3.98 L (4.00-5.20) m/uL Hgb 10.9 L (12.0-16.0) gm/dL MCHC 31 L (32-36) gm/dL Neut % (Auto) 86.9 H (42.0-72.0) % Lymph % (Auto) 10.1 L (20-44) % Neut # (Auto) 14.00 H (1.7-7.0) K/uL Glucose 259 H (60-115) mg/dL Alkaline Phosphatase 169 H (40-150) U/L C-Reactive Protein 16.8 H (0.5-1.0) mg/dL Total Protein 5.4 L (6.0-8.3) g/dL Albumin 2.9 L (3.3-5.0) g/dL Diabetes panel 10/31/22 Range/Units 05:59 Sodium 138 (135-149) mmol/L Potassium 4.2 (3.6-5.1) mmol/L Chloride 106 (96-114) mmol/L Carbon Dioxide 27 (20-32) mmol/L BUN 24 (7-30) mg/dL Creatinine 0.5 (0.5-1.5) mg/dL Glucose 259 H (60-115) mg/dL Calcium 8.5 (8.4-10.6) mg/dL AST 23 (12-35) U/L ALT 22 (4-35) U/L Alkaline Phosphatase 169 H (40-150) U/L Total Protein 5.4 L (6.0-8.3) g/dL Albumin 2.9 L (3.3-5.0) g/dL Calcium panel 10/31/22 Range/Units 05:59 Calcium 8.5 (8.4-10.6) mg/dL Albumin 2.9 L (3.3-5.0) g/dL Pituitary panel 10/31/22 Range/Units 05:59 Sodium 138 (135-149) mmol/L Potassium 4.2 (3.6-5.1) mmol/L Chloride 106 (96-114) mmol/L Carbon Dioxide 27 (20-32) mmol/L BUN 24 (7-30) mg/dL Creatinine 0.5 (0.5-1.5) mg/dL Glucose 259 H (60-115) mg/dL Calcium 8.5 (8.4-10.6) mg/dL Adrenal panel 10/31/22 Range/Units 05:59 Sodium 138 (135-149) mmol/L Potassium 4.2 (3.6-5.1) mmol/L Chloride 106 (96-114) mmol/L Carbon Dioxide 27 (20-32) mmol/L BUN 24 (7-30) mg/dL Creatinine 0.5 (0.5-1.5) mg/dL Glucose 259 H (60-115) mg/dL Calcium 8.5 (8.4-10.6) mg/dL Total Bilirubin 0.4 (0.1-1.5) mg/dL AST 23 (12-35) U/L ALT 22 (4-35) U/L Alkaline Phosphatase 169 H (40-150) U/L Total Protein 5.4 L (6.0-8.3) g/dL Albumin 2.9 L (3.3-5.0) g/dL All other labs normal. Imaging Additional studies: Comparison: CT 04/29/2022. MRI 12/30/2021 Findings: Linear subsegmental atelectasis noted in both lung bases. No pleural effusion. No free intraperitoneal air. Extensive muscle atrophy noted. No intrahepatic mass. Gallbladder absent. No biliary obstruction. No pancreatic lesion. Spleen normal. Adrenal glands unremarkable. Left extrarenal pelvis is present. Normal left ureter. Cristobal catheter in the bladder. Right ureter is normal. There are nonobstructing stones within the lower pole collecting system of the right kidney measuring 1.2 cm. Atherosclerotic disease. No bowel obstruction is present. Incidental distal duodenal diverticulum measuring 3.1 cm. Increased stool within the rectum. No pelvic soft tissue mass. Chronic right ischial soft tissue ulcer. There is a fluid collection with an enhancing rim adjacent to the right ischium with associated destructive change in the right posterior ischial bone findings appear similar to prior studies. Scoliotic deformity with postop changes. Impression: Chronic right posterior ischial soft tissue ulcer with adjacent deep fluid collection and chronic osteomyelitis of the right posterior iliac bone. Overall, the findings are similar to the prior studies. Nonobstructing right renal stones measuring up to 1.2 cm. Increased stool within the rectum suggesting constipation. Mild circumferential wall thickening of the rectum is less conspicuous when compared to the prior study. Please note that all CT scans at this facility use dose modulation, iterative reconstruction, and/or weight-based dosing when appropriate to reduce radiation dose to as low as reasonably achievable. Dictated by Jeremiah Nicholson MD @ 10/30/2022 8:05:32 PM Assessment and Plan Assessment and plan (1) Rheumatoid arthritis: Problem comment: on daily prednisone, will increase prednisone for the short course Status: Acute (2) Paraplegia: Problem comment: since age 6; muscle atrophy (chronic) bilaterally Status: Acute (3) HTN (hypertension): Problem comment: continue metoprolol but with hold parameters. Status: Acute (4) Neurogenic bladder: Problem comment: indwelling catheter Status: Acute (5) Chronic pain: Problem comment: continue gabapentin. 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 no OR debridement in the past. She has done HBO, wound vac, Kerecis with wound care over the last year -consulted wound clinic, [facility]. Discussed with Dr. Gallegos. Cultures are obtained. b/c of allergies on Levaquin. Updating CT this evening. -will make NPO and D5LR at midnight in case OR debridement necessary. -tachycardic, but afebrile and mentating normal. BP is normal. -CT reviewed - will await surgical consult. Status: Acute Plan The patient is a 76-year-old female with a right ischial tuberosity ulcer which is stage IV with new necrosis and likely infection. I do think that this needs debridement. Given her discomfort I think this should be done in the OR with sedation. I discussed this with the patient who is agreeable to proceed. We will plan on debridement in the operating room today. We should be able to do this with sedation and local anesthetic. I will also obtain a tissue culture as well as possible bone culture if there is bone visible within the wound. Patient is agreeable with this plan and signed informed consent.
--- NOTE | 2022-10-31 14:40 | PM.IMPN1 ---
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 no OR debridement in the past. She has done HBO, wound vac, Kerecis with wound care over the last year -consulted wound clinic, [facility]. Discussed with Dr. Gallegos. Cultures are obtained. b/c of allergies on Levaquin. Updating CT this evening. -will make NPO and D5LR at midnight in case OR debridement necessary. -tachycardic, but afebrile and mentating normal. BP is normal. -CT reviewed - will await surgical consult. Status: Acute Plan 1. Reviewed with patient 2. Continue with current treatment efforts 3. To OR soon for or extensive debridement 4. Will warrant outpatient wound clinic support efforts as well Time Spent With Patient Total time spent: 15 minutes Subjective Time Seen by Provider: 11:00 Date Seen: 10/31/22 Interval history: Hospital day 2. Generally feels improved today compared to yesterday. Underwent limited debridement at bedside today. Pain limited amount of debridement. General surgery will be bringing patient to the OR later for more extensive debridement, biopsies, cultures. Patient agreeable. Exam Narrative: Exam Narrative: No acute distress. Alert, oriented to self, place, time, situation. Friendly, articulate, cooperative. Mood and affect are congruent. Lungs are clear to auscultation. Heart tones with regular rhythm. Abdomen benign. Moves upper extremities independently. Paraplegia. Const: Vital Signs, click to edit/add: Vital Signs - 24 hr 10/30/22 15:00 10/30/22 15:01 10/30/22 16:25 Temperature 97.7 F Pulse Rate 107 H 109 H Pulse Rate [Left P ulse Oximeter] Respiratory Rate Blood Pressure 110/50 L Blood Pressure [Le ft Arm] Pulse Oximetry 91 91 Oxygen Delivery [facility] 10/30/22 15:02 10/30/22 16:00 10/30/22 16:01 Temperature Pulse Rate 108 H 109 H 112 H Pulse Rate [Left P ulse Oximeter] Respiratory Rate Blood Pressure 114/48 L Blood Pressure [Le ft Arm] Pulse Oximetry 92 91 90 Oxygen Delivery [facility] 10/30/22 16:02 10/30/22 17:01 10/30/22 17:02 Temperature Pulse Rate 116 H 110 H Pulse Rate [Left P ulse Oximeter] Respiratory Rate Blood Pressure 129/52 L Blood Pressure [Le ft Arm] Pulse Oximetry 91 91 Oxygen Delivery [facility] 10/30/22 17:40 10/30/22 17:40 10/30/22 17:40 Temperature 97 F L 97 F L Pulse Rate Pulse Rate [Left P ulse Oximeter] 113 H 113 H Respiratory Rate 18 16 18 Blood Pressure Blood Pressure [Le ft Arm] 126/58 L 126/58 L Pulse Oximetry 95 95 95 Oxygen Delivery [facility] Room Air Room Air Room Air 10/30/22 17:30 10/30/22 18:10 10/30/22 19:26 Temperature 97 F L Pulse Rate Pulse Rate [Left P ulse Oximeter] 113 H Respiratory Rate 16 18 Blood Pressure Blood Pressure [Le ft Arm] 126/58 L Pulse Oximetry 95 94 94 Oxygen Delivery [facility] Room Air Room Air 10/30/22 23:00 10/30/22 23:00 10/31/22 03:27 Temperature 96.9 F L Pulse Rate Pulse Rate [Left P ulse Oximeter] 86 98 Respiratory Rate 16 Blood Pressure Blood Pressure [Le ft Arm] 126/65 Pulse Oximetry 94 94 Oxygen Delivery [facility] Room Air 10/31/22 07:00 10/31/22 07:00 10/31/22 07:00 Temperature 97.0 F L Pulse Rate Pulse Rate [Left P ulse Oximeter] 119 H 119 H Respiratory Rate 18 18 Blood Pressure Blood Pressure [Le ft Arm] 163/75 H Pulse Oximetry 94 95 Oxygen Delivery [facility] Room Air 10/31/22 11:00 Temperature 97.6 F Pulse Rate Pulse Rate [Left P ulse Oximeter] 94 Respiratory Rate 16 Blood Pressure Blood Pressure [Le ft Arm] 145/78 H Pulse Oximetry 98 Oxygen Delivery [facility] Room Air Documenting provider has reviewed patient's vital signs: yes Labs Labs: Laboratory Results - last 24 hr 10/30/22 10/31/22 10/31/22 10:05 05:59 05:59 WBC 16.07 H RBC 3.98 L Hgb 10.9 L Hct 35.7 MCV 90 MCH 27 MCHC 31 L RDW Coeff of Lynette 14.7 Plt Count 407 Neut % (Auto) 86.9 H Lymph % (Auto) 10.1 L [place] % (Auto) 1.6 Eos % (Auto) 0.0 Baso % (Auto) 0.1 Neut # (Auto) 14.00 H Lymph # (Auto) 1.60 [place] # (Auto) 0.30 Eos # (Auto) 0.00 Baso # (Auto) 0.00 INR 1.01 Sodium Potassium Chloride Carbon Dioxide BUN Creatinine Estimated Creat Clear Estimated GFR Glucose Calcium Total Bilirubin AST ALT Alkaline Phosphatase C-Reactive Protein Total Protein Albumin Procalcitonin 0.07 10/31/22 05:59 WBC RBC Hgb Hct MCV MCH MCHC RDW Coeff of Lynette Plt Count Neut % (Auto) Lymph % (Auto) [place] % (Auto) Eos % (Auto) Baso % (Auto) Neut # (Auto) Lymph # (Auto) [place] # (Auto) Eos # (Auto) Baso # (Auto) INR Sodium 138 Potassium 4.2 Chloride 106 Carbon Dioxide 27 BUN 24 Creatinine 0.5 Estimated Creat Clear 34.91 Estimated GFR 98 Glucose 259 H Calcium 8.5 Total Bilirubin 0.4 AST 23 ALT 22 Alkaline Phosphatase 169 H C-Reactive Protein 16.8 H Total Protein 5.4 L Albumin 2.9 L Procalcitonin 0.07
--- NOTE | 2022-10-31 15:26 | PC.SOCIAL ---
Pt. has been accepted Friday to [facility]. Pt was not available to update. guest services manager will update pt. tomorrow. Pt. will likely need EMS transport and the charge nurse was updated.
[2022-10-31] MEDS: predniSONE 10 MG TABLET 30 MG PO (18:03)
--- NOTE | 2022-10-31 18:39 | PC.NURSE ---
End of shift-- pleasant and cooperative, alert and oriented patient. VSS and pt is afebrile. SPO2 maintained >90% on RA. She c/o pain in her buttock which appears well managed with [place] and Toradol PRN. Dressing to wound on right buttock was changed by [place]o [place] at bedside this morning, then wound was debrided in OR by Dr. Gallegos and redressed this afternoon. Pt arrived back from PACU at approximately 1430. Pt requires only minimal assistance with repositioning., but was repositioned frequently.
[2022-11-01] MEDS: ACETAMINOPHEN 325 MG TABLET 975 MG PO ×3 (02:34→21:58)
[2022-11-01] MEDS: 5 % DEXTROSE IN LAC RINGER'S 1,000 ML 75 ML IV (02:38)
[2022-11-01 02:42] VITALS: BP 150/66; PULSE 86; RESP 16; TEMP 36.4; O2SAT 93
[2022-11-01] MEDS: HYDROCODONE-ACETAMIN 5-325 MG 1 TAB PO ×2 (06:10→21:58)
[2022-11-01 06:50] LABS: Basophils Percent Auto 0.1 % (0.0-3.0); Hematocrit 33.4 % (33.0-51.0); Hemoglobin* 10.2 gm/dL (12.0-16.0); Immature Granulocytes Pct Auto 1.2 %; Lymphocytes Percent Auto 11.2 % (20-44); Mean Corpuscular HGB Conc 31 gm/dL (32-36); Mean Corpuscular Hemoglobin 28 pg (26-34); Mean Corpuscular Volume 91 fL (80-100); Monocytes Percent Auto 2.2 % (0.0-11.0); Neutrophils Percent Auto 85.3 % (42.0-72.0); Platelet Count* 449 K/uL (140-440); RDW Coefficient of Variation % 14.6 % (11.5-15.5); Red Blood Count 3.67 m/uL (4.00-5.20); White Blood Count* 15.27 K/uL (4.50-11.00)
[2022-11-01 06:56] LABS: Slide Review Reflex No
--- NOTE | 2022-11-01 06:58 | PC.NURSE ---
Pleasant. Calls appropriately. 1x sm formed BM. Cristoabl patent and draining. Minimal drainage from dressing. c/o pain 2-01/20, 1x [place], scheduled Tylenol given.
[2022-11-01 07:00] VITALS: BP 175/88; PULSE 86; PULSE 93; RESP 16; TEMP 36.6; O2SAT 94; O2SAT 95
[2022-11-01 08:27] LABS: Hemoglobin A1C* 6.26 % (0-5.6)
[2022-11-01] MEDS: MULTIVITAMIN/MINERALS 1 TABLET 1 TAB PO (09:05)
[2022-11-01] MEDS: predniSONE 10 MG TABLET 30 MG PO (09:05)
[2022-11-01] MEDS: levoFLOXacin 500 MG TABLET PO (09:05)
[2022-11-01] MEDS: LACTOBACILLUS ACIDOPHILUS 1 TABLET 1 TAB PO (09:05)
[2022-11-01] MEDS: FUROSEMIDE 20 MG TABLET PO (09:05)
[2022-11-01] MEDS: METOPROLOL SUCCINATE (XL) 50 MG TAB PO (09:05)
[2022-11-01] MEDS: GABAPENTIN 300 MG CAPSULE PO ×3 (09:06→21:57)
[2022-11-01] MEDS: ASPIRIN 81 MG TABLET EC PO (09:06)
[2022-11-01] MEDS: SODIUM CHLORIDE 0.9 % (FLUSH) 10 ML SYRINGE 5 ML IVF ×2 (09:12→22:04)
[2022-11-01] MEDS: KETOROLAC 30 MG/ML inj IVP (09:12)
--- NOTE | 2022-11-01 10:23 | REH.OT ---
Patient declined OT/PT evaluations today due to pain in wound area and previous dressing change. Will attempt on 11/02/22.
[2022-11-01 11:00] VITALS: PULSE 86; RESP 16; O2SAT 94
--- NOTE | 2022-11-01 11:12 | PM.GSPN ---
Subjective Subjective Date Seen: 11/01/22 Interval history: Mary is postop day 1 from debridement of right ischial tuberosity wound with osteomyelitis. She feels better. She did not sleep well last night however. The pain is improved. Exam Narrative: Exam Narrative: Skin: Periwound skin appears to be less reddened today. Small bleeding vessel on wound edge was cauterized with silver nitrate. Base of wound appears healthy without significant exudate for necrosis. Const: Vital Signs, click to edit/add: Vital Signs - 24 hr 10/31/22 15:00 10/31/22 15:00 10/31/22 15:00 Temperature 97.6 F Pulse Rate Pulse Rate [Left P ulse Oximeter] 84 84 Respiratory Rate 16 16 Blood Pressure [Le ft Arm] 124/66 Pulse Oximetry 97 97 Oxygen Delivery [facility] Room Air 10/31/22 14:30 10/31/22 15:00 10/31/22 14:30 Temperature 97.0 F L 97.6 F 97.0 F L Pulse Rate 95 Pulse Rate [Left P ulse Oximeter] 95 88 Respiratory Rate 18 16 18 Blood Pressure [Le ft Arm] 107/51 L 100/54 L 107/51 L Pulse Oximetry 95 96 Oxygen Delivery [facility] Room Air Room Air Room Air 10/31/22 18:04 10/31/22 19:43 10/31/22 19:00 Temperature 98.6 F 98.6 F 98.2 F Pulse Rate Pulse Rate [Left P ulse Oximeter] 87 Respiratory Rate 16 Blood Pressure [Le ft Arm] 117/54 L Pulse Oximetry 98 Oxygen Delivery [facility] Room Air 10/31/22 23:00 10/31/22 23:00 10/31/22 23:00 Temperature 98 F Pulse Rate Pulse Rate [Left P ulse Oximeter] 98 98 Respiratory Rate 16 16 Blood Pressure [Le ft Arm] 161/72 H Pulse Oximetry 93 93 Oxygen Delivery [facility] Room Air 11/01/22 02:42 Temperature 97.6 F Pulse Rate Pulse Rate [Left P ulse Oximeter] 86 Respiratory Rate 16 Blood Pressure [Le ft Arm] 150/66 H Pulse Oximetry 93 Oxygen Delivery [facility] Room Air Labs/Imaging Labs Labs: White blood cell count and CRP are up slightly from yesterday. 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 Tissue culture growing Gram-positive cocci consistent with prior wound culture which is growing strep. Patient remains on antibiotics. Continue b.i.d. wet to dry dressing changes with Kerlix and Vashe. Mepilex placed over the wound to cover and keep stool soilage out of the wound, however this will have to be checked frequently as it is not probably absorbent enough for her wet to dry dressing. If nursing is having to change it too frequently than they should place an ABD over the packing.
--- NOTE | 2022-11-01 12:30 | PC.SOCIAL ---
Discharge planning- Phone call to Jennifer at [facility] to set a time for discharge on Friday. Discharge will occur at 10:00 am. Jennifer asked for clarification if pt has a wound vac and what the care was for pt for pt's wound. Discussed with charge nurse and she stated that pt does not have wound vac and pt will have daily wet to dry dressing changes. informed Charge Nurse that pt transportation should be set for 10:00 am on Friday. Charge Nurse will call and set the EMS transport for Friday at 10:00 am. Phone call to Jennifer at [facility] and provided information on pt's wound. Jennifer requested a copy of pt's medication list. Faxed copy of medication list to [facility]. Met with pt in pt's room. Provided information that pt has been accepted to [facility] for Friday. Discussed transportation through non-emergency ambulance set for 10:00 am. Pt did not have any questions. Social Work will follow up as necessary.
--- NOTE | 2022-11-01 14:17 | P.IMPN_ITS ---
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 (2) Osteomyelitis: Problem details: CT Abd/Pelvis 10/30/22: Chronic right posterior ischial soft tissue ulcer with adjacent deep fluid collection and chronic osteomyelitis of the right posterior iliac bone. Overall, the findings are similar to the prior studies. Status: Acute Assessment and Plan: OR and bedside debridement does not demonstrate obvious active acute osteo myelitis. On levofloxacin 500 mg po daily empirically for now. 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 Status: Acute (6) Rheumatoid arthritis: Problem details: on daily prednisone Status: Acute Assessment and Plan: Prednisone dose increased in hospital transiently, now back to usual dose of 10 mg po once daily starting 11/02/22. (7) HTN (hypertension): Problem details: continue metoprolol but with hold parameters. Status: Acute (8) Chronic pain: Problem details: continue gabapentin. hydrocodone, toradol prn scheduled tylenol Status: Acute Plan 1. Continue with supportive efforts as specified above. 2. Answered patient's questions are satisfaction. 3. Patient agreeable to above stated plans and recommendations. 4. Continue with twice daily dressing changes per Dr. Gallegos while here in the hospital. Consider changing to once daily dressing changes when she leaves the hospital. Time Spent With Patient Total time spent: 30 minutes Subjective Time Seen by Provider: 09:30 Date Seen: 11/01/22 Interval history: Hospital day 3. Generally feels improved today compared to admission. Underwent limited debridement at bedside today with Dr. Sommer. Underwent more extensive OR debridement yesterday. She is agreeable to short term senior care services - our geriatric social work professor staff are working on this for early next week if possible. Exam Narrative: Exam Narrative: Appears comfortable and in no acute distress. Obvious chronic paraplegia with muscle wasting of lower extremities. Lungs are clear to auscultation. Heart tones regular. Abdomen is benign. Right buttock wound assessed demonstrating clean surfaces with no additional areas of necrosis or slough. Const: Vital Signs, click to edit/add: Vital Signs - 24 hr 10/31/22 15:00 10/31/22 15:00 10/31/22 15:00 Temperature 97.6 F Pulse Rate Pulse Rate [Left P ulse Oximeter] 84 84 Respiratory Rate 16 16 Blood Pressure [Le ft Arm] 124/66 Pulse Oximetry 97 97 Oxygen Delivery Me thod Room Air 10/31/22 14:30 10/31/22 15:00 10/31/22 14:30 Temperature 97.0 F L 97.6 F 97.0 F L Pulse Rate 95 Pulse Rate [Left P ulse Oximeter] 95 88 Respiratory Rate 18 16 18 Blood Pressure [Le ft Arm] 107/51 L 100/54 L 107/51 L Pulse Oximetry 95 96 Oxygen Delivery Me thod Room Air Room Air Room Air 10/31/22 18:04 10/31/22 19:43 10/31/22 19:00 Temperature 98.6 F 98.6 F 98.2 F Pulse Rate Pulse Rate [Left P ulse Oximeter] 87 Respiratory Rate 16 Blood Pressure [Le ft Arm] 117/54 L Pulse Oximetry 98 Oxygen Delivery Me thod Room Air 10/31/22 23:00 10/31/22 23:00 10/31/22 23:00 Temperature 98 F Pulse Rate Pulse Rate [Left P ulse Oximeter] 98 98 Respiratory Rate 16 16 Blood Pressure [Le ft Arm] 161/72 H Pulse Oximetry 93 93 Oxygen Delivery Me thod Room Air 11/01/22 02:42 11/01/22 07:00 11/01/22 07:00 Temperature 97.6 F Pulse Rate Pulse Rate [Left P ulse Oximeter] 86 86 Respiratory Rate 16 16 Blood Pressure [Le ft Arm] 150/66 H Pulse Oximetry 93 94 Oxygen Delivery Me thod Room Air 11/01/22 07:00 Temperature 98 F Pulse Rate Pulse Rate [Left P ulse Oximeter] 93 Respiratory Rate 16 Blood Pressure [Le ft Arm] 175/88 H Pulse Oximetry 95 Oxygen Delivery Me thod Room Air Documenting provider has reviewed patient's vital signs: yes Labs Labs: Laboratory Results - last 24 hr 11/01/22 11/01/22 05:29 05:29 WBC 15.27 H RBC 3.67 L Hgb 10.2 L Hct 33.4 MCV 91 MCH 28 MCHC 31 L RDW Coeff of Lynette 14.6 Plt Count 449 H Neut % (Auto) 85.3 H Lymph % (Auto) 11.2 L [place] % (Auto) 2.2 Eos % (Auto) 0.0 Baso % (Auto) 0.1 Neut # (Auto) 13.00 H Lymph # (Auto) 1.70 [place] # (Auto) 0.30 Eos # (Auto) 0.00 Baso # (Auto) 0.00 Hemoglobin A1c 6.26 H
[2022-11-01 15:00] VITALS: BP 151/78; PULSE 84; PULSE 99; RESP 16; TEMP 37; O2SAT 93
--- NOTE | 2022-11-01 19:33 | PC.NURSE ---
Dressing change performed this morning with Dr. Gallegos per the drsg change orders. Pt pre-medicated with toradol before dressing was changed. Pt turned and repositioned in bed. Had medium BM today that was formed. Blood sugar 306 at lunch 260 at dinner - insulin given per the orders.
[2022-11-01 20:40] VITALS: BP 141/72; PULSE 91; RESP 16; TEMP 36.9; O2SAT 93
[2022-11-01] MEDS: diphenhydrAMINE 25 MG CAPSULE PO (21:58)
[2022-11-01 23:00] VITALS: PULSE 91; RESP 16
[2022-11-02] MEDS: KETOROLAC 30 MG/ML inj IVP (03:19)
[2022-11-02 04:08] VITALS: BP 167/83; PULSE 87; RESP 18; TEMP 36.6; O2SAT 92
[2022-11-02] MEDS: ACETAMINOPHEN 325 MG TABLET 975 MG PO ×3 (06:28→21:20)
--- NOTE | 2022-11-02 06:44 | PC.NURSE ---
Status [id number] Alert and oriented. Pleasant and cooperative. Receiving scheduled tylenol, PRN Oxy and Toradol for pain. BP elevated. Remains on room air. Dressing to right buttock changed per recommendations. Repositioning as tolerated. Indwelling catheter patent. Intermittent resting between cares.
[2022-11-02 07:00] VITALS: BP 183/100; PULSE 101; RESP 18; TEMP 37.4; O2SAT 96
[2022-11-02 07:12] LABS: Basophils Percent Auto 0.1 % (0.0-3.0); Eosinophils Percent Auto 0.2 % (0.0-7.0); Hematocrit 30.5 % (33.0-51.0); Hemoglobin* 9.1 gm/dL (12.0-16.0); Immature Granulocytes Pct Auto 1.3 %; Lymphocytes Percent Auto 14.6 % (20-44); Mean Corpuscular HGB Conc 30 gm/dL (32-36); Mean Corpuscular Hemoglobin 28 pg (26-34); Mean Corpuscular Volume 93 fL (80-100); Monocytes Percent Auto 7.9 % (0.0-11.0); Neutrophils Percent Auto 75.9 % (42.0-72.0); Platelet Count* 476 K/uL (140-440); RDW Coefficient of Variation % 14.6 % (11.5-15.5); Red Blood Count 3.29 m/uL (4.00-5.20); White Blood Count* 17.23 K/uL (4.50-11.00)
[2022-11-02 07:27] LABS: Albumin* 2.7 g/dL (3.3-5.0); Chloride* 107 mmol/L (96-114); Sodium* 137 mmol/L (135-149)
[2022-11-02 07:28] LABS: Potassium* 4.7 mmol/L (3.6-5.1)
[2022-11-02 07:30] LABS: Bilirubin Direct* 0.3 mg/dL (0.0-0.5); Bilirubin Total* 0.3 mg/dL (0.1-1.5); Carbon Dioxide* 30 mmol/L (20-32); Creatinine* 0.5 mg/dL (0.5-1.5); Est. Creatinine Clearance* 34.91; Estimated Glomerular Filt Rate 98 ml/min; Slide Review Reflex Yes; Total Protein* 4.8 g/dL (6.0-8.3)
[2022-11-02 07:31] LABS: Alanine Aminotransferase* 18 U/L (4-35); Alkaline Phosphatase* 94 U/L (40-150); Aspartate Amino Transferase* 19 U/L (12-35); Blood Urea Nitrogen* 35 mg/dL (7-30); Calcium* 8.5 mg/dL (8.4-10.6); Glucose* 146 mg/dL (60-115)
[2022-11-02 07:33] LABS: C Reactive Protein* 3.9 mg/dL (0.5-1.0)
[2022-11-02 07:35] LABS: Slide Review Acceptable Review (Acceptable)
[2022-11-02] MEDS: HYDROCODONE-ACETAMIN 5-325 MG 1 TAB PO ×2 (08:50→21:20)
[2022-11-02] MEDS: levoFLOXacin 500 MG TABLET PO (08:51)
[2022-11-02] MEDS: GABAPENTIN 300 MG CAPSULE PO ×3 (08:52→21:19)
[2022-11-02] MEDS: METOPROLOL SUCCINATE (XL) 50 MG TAB PO (08:52)
[2022-11-02] MEDS: LACTOBACILLUS ACIDOPHILUS 1 TABLET 1 TAB PO (08:52)
[2022-11-02] MEDS: FUROSEMIDE 20 MG TABLET PO (08:52)
[2022-11-02] MEDS: MULTIVITAMIN/MINERALS 1 TABLET 1 TAB PO (08:52)
[2022-11-02] MEDS: predniSONE 10 MG TABLET PO (08:52)
[2022-11-02] MEDS: ASPIRIN 81 MG TABLET EC PO (08:52)
[2022-11-02] MEDS: SODIUM CHLORIDE 0.9 % (FLUSH) 10 ML SYRINGE 5 ML IVF ×2 (08:53→21:35)
[2022-11-02 11:00] VITALS: BP 110/73; PULSE 110; RESP 18; TEMP 36.6; O2SAT 96
--- NOTE | 2022-11-02 11:05 | REH.OT ---
Patient declined PT/OT assessments today secondary to feeling ill. Will attempt 11/03/22.
--- NOTE | 2022-11-02 11:39 | PM.GSPN ---
Subjective Subjective Date Seen: 11/02/22 Interval history: Mary feels a little bit worse today. She is feeling warm and has some reflux symptoms. She is having some pain on her bottom as well. She thinks she needs to have a bowel movement. Exam Narrative: Exam Narrative: Skin: Outer dressing changed. No cellulitis noted. Wound is clean without bleeding. Const: Vital Signs, click to edit/add: Vital Signs - 24 hr 11/01/22 15:00 11/01/22 15:00 11/01/22 15:00 Temperature 98.6 F Pulse Rate [Left P ulse Oximeter] 84 99 Respiratory Rate 16 16 Blood Pressure [Le ft Arm] 151/78 H Pulse Oximetry 93 93 Oxygen Delivery Me thod Room Air 11/01/22 20:40 11/01/22 23:00 11/02/22 04:08 Temperature 98.4 F 97.9 F Pulse Rate [Left P ulse Oximeter] 91 91 87 Respiratory Rate 16 16 18 Blood Pressure [Le ft Arm] 141/72 H 167/83 H Pulse Oximetry 93 92 Oxygen Delivery Me thod Room Air Room Air 11/02/22 07:00 11/02/22 07:00 Temperature 99.4 F Pulse Rate [Left P ulse Oximeter] 101 H 101 H Respiratory Rate 18 18 Blood Pressure [Le ft Arm] 183/100 H Pulse Oximetry 96 Oxygen Delivery Me thod Room Air Labs/Imaging Labs Labs: Group B strep is growing from tissue culture from the OR Progress Note: A&P Assessment and plan (1) Osteomyelitis: Problem details: CT Abd/Pelvis 10/30/22: Chronic right posterior ischial soft tissue ulcer with adjacent deep fluid collection and chronic osteomyelitis of the right posterior iliac bone. Overall, the findings are similar to the prior studies. 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 Erythema surrounding wound is now completely gone today. CRP is down to 3.9 from 16 though her white count is up slightly at 17. -amend continued b.i.d. dressing changes with Vashe -continued antibiotics for osteomyelitis. Patient is on Levaquin currently which should cover strep and has good oral bioavailability though she does have a low-grade fever today. Patient would benefit from ID consult. Because this is not available inpatient, consideration should be had for this as outpatient. -Lovenox okay for DVT prophylaxis. Ordered. -planning for dispo to [facility] but this will depend on infection control.
[2022-11-02] MEDS: ENOXAPARIN 40 MG/0.4 ML INJ SUBCUT (13:14)
[2022-11-02 15:00] VITALS: BP 120/72; PULSE 100; RESP 16; TEMP 36.1; O2SAT 98
[2022-11-02] MEDS: cefTRIAXone 2 GM in 0.9 % SODIUM CHLORIDE Mini-bag 100 ML IVPB (16:37)
--- NOTE | 2022-11-02 17:06 | ONC.NURNOTE ---
alert and oriented. very pleasent. vs wnl except heart rate 100. denies pain except GI upset. small formed soft stool. no reddness or kwabena area or skin around wound dressing. Dr. Kline aware. C. Diff ordered awaiting another BM. sprite and a banana as requested. turned and repositioned after 4pm bm. accucheck 181. declined insulin.
--- NOTE | 2022-11-02 17:52 | PM.IMPN1 ---
Progress Note: A&P Assessment and plan (1) Osteomyelitis: Problem details: CT Abd/Pelvis 10/30/22: Chronic right posterior ischial soft tissue ulcer with adjacent deep fluid collection and chronic osteomyelitis of the right posterior iliac bone. Overall, the findings are similar to the prior studies. History of MRSA in wound previously. Current cultures growing group C strep. 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 hydrocodone, toradol prn scheduled tylenol Status: Acute (6) Paraplegia: Problem details: since age 6; muscle atrophy (chronic) bilaterally Status: Acute (7) Neurogenic bladder: Problem details: indwelling catheter Urine culture grew out kebsiella oxytoca that is sensitive to the levofloxacin and ceftriaxone that she is presently taking. Status: Acute (8) Diarrhea: Problem details: Test for C diff. Status: Acute Plan Continue hospital treatment for osteomyelitis and soft tissue infection of her grade 4 ulcer. Today she is cut a mildly elevated white count, mild tachycardia and increased temperature. Concern for possible C diff infection. Ms. Switch her from Levaquin to ceftriaxone which will cover group C strep and Klebsiella. If positive for C diff consider oral vancomycin. History of urticaria from IV vancomycin? Patient would benefit from of patient ID consultation as well as ongoing wound care Time Spent With Patient Total time spent: Total time spent today is 45 minutes, 35 minutes in coordination of care and discussing with patient and other providers management of ulcer, osteomyelitis, acute illness Subjective Date Seen: 11/02/22 Interval history: 76-year-old female seen in followup of acute on chronic soft tissue infection of her right buttock with chronic osteomyelitis of the right ischium. Patient is been surgically debrided. Currently on Levaquin for treatment of the infection. She reports overall she has been doing okay but today is developed some upset stomach and diarrhea. Exam Narrative: Exam Narrative: She is alert and appears in no distress. Speech is normal. Respirations are clear to auscultation. Cardiovascular: S1, S2, regular rate and rhythm. Abdomen: Bowel sounds active. Abdomen is soft without tenderness or mass. Inspection of the wound on her right buttock shows mild erythema. Wound is packed with gauze. No significant induration of the surrounding soft tissue. Const: Vital Signs, click to edit/add: Vital Signs - 24 hr 11/01/22 20:40 11/01/22 23:00 11/02/22 04:08 Temperature 98.4 F 97.9 F Pulse Rate [Left P ulse Oximeter] 91 91 87 Respiratory Rate 16 16 18 Blood Pressure [Le ft Arm] 141/72 H 167/83 H Pulse Oximetry 93 92 Oxygen Delivery Me thod Room Air Room Air 11/02/22 07:00 11/02/22 07:00 11/02/22 11:00 Temperature 99.4 F 97.9 F Pulse Rate [Left P ulse Oximeter] 101 H 101 H 110 H Respiratory Rate 18 18 18 Blood Pressure [Le ft Arm] 183/100 H 110/73 Pulse Oximetry 96 96 Oxygen Delivery Me thod Room Air Room Air 11/02/22 15:00 Temperature 97 F L Pulse Rate [Left P ulse Oximeter] 100 Respiratory Rate 16 Blood Pressure [Le ft Arm] 120/72 Pulse Oximetry 98 Oxygen Delivery Me thod Room Air Documenting provider has reviewed patient's vital signs: yes Labs Labs: Laboratory Results - last 24 hr 11/02/22 11/02/22 11/02/22 05:32 05:32 05:32 WBC 17.23 H Cancelled RBC 3.29 L Cancelled Hgb 9.1 L Cancelled Hct 30.5 L Cancelled MCV 93 Cancelled MCH 28 Cancelled MCHC 30 L Cancelled RDW Coeff of Lynette 14.6 Plt Count 476 H Cancelled Neut % (Auto) 75.9 H Lymph % (Auto) 14.6 L [place] % (Auto) 7.9 Eos % (Auto) 0.2 Baso % (Auto) 0.1 Neut # (Auto) 13.10 H Lymph # (Auto) 2.50 [place] # (Auto) 1.40 H Eos # (Auto) 0.00 Baso # (Auto) 0.00 Diff Slide Review Acceptable Review Sodium 137 Potassium 4.7 Chloride 107 Carbon Dioxide 30 BUN 35 H Creatinine 0.5 Estimated Creat Clear 34.91 Estimated GFR 98 Glucose 146 H Calcium 8.5 Total Bilirubin 0.3 Direct Bilirubin 0.3 AST 19 ALT 18 Alkaline Phosphatase 94 C-Reactive Protein 3.9 H Total Protein 4.8 L Albumin 2.7 L
[2022-11-02 21:15] VITALS: BP 117/64; PULSE 97; RESP 16; TEMP 36.6; O2SAT 96
[2022-11-02] MEDS: LORazepam 0.5 MG TABLET PO (21:20)
[2022-11-02] MEDS: MELATONIN 3 MG TABLET PO (21:21)
[2022-11-02 23:00] VITALS: PULSE 97; RESP 16
[2022-11-03] VITALS (13 sets, daily range): BP systolic 95–139; BP diastolic 44–68; PULSE 87–114; RESP 14–18; TEMP 35.7–36.8; O2SAT 94–98
--- NOTE | 2022-11-03 06:48 | PC.NURSE ---
Status [id number] Alert and oriented. Pleasant and cooperative. PRN norco given for pain. PRN Ativan given at bedtime for sleep. Dressing to right coccyx changed per recommendations. VSS on room air. Repositioning per patient request. Indwelling catheter patent. Pt observed resting very well throughout night.
[2022-11-03 07:37] LABS: Basophils Percent Auto 0.1 % (0.0-3.0); Hematocrit 22.8 % (33.0-51.0); Immature Granulocytes Pct Auto 2.2 %; Lymphocytes Percent Auto 20.3 % (20-44); Mean Corpuscular HGB Conc 30 gm/dL (32-36); Mean Corpuscular Hemoglobin 28 pg (26-34); Mean Corpuscular Volume 93 fL (80-100); Monocytes Percent Auto 6.3 % (0.0-11.0); Neutrophils Percent Auto 70.1 % (42.0-72.0); Platelet Count* 447 K/uL (140-440); RDW Coefficient of Variation % 15.1 % (11.5-15.5); Red Blood Count 2.46 m/uL (4.00-5.20); White Blood Count* 20.69 K/uL (4.50-11.00)
[2022-11-03 07:41] LABS: Hemoglobin* 6.9 gm/dL (12.0-16.0)
--- NOTE | 2022-11-03 09:12 | REH.PT ---
Per charge nurse, pt not appropriate for PT/OT evaluations due to low hemoglobin. Will attempt tomorrow 11/04/22.
--- NOTE | 2022-11-03 09:21 | REH.OT ---
Orders received for OT/PT eval and treat. Multiple attempts have been made to engage patient in therapy. She is limited by her wound. medical status and pre-morbid status. At this time, she is more appropriate for nursing cares and intervention. Discharge PT and OT orders.
[2022-11-03 09:24] LABS: C Reactive Protein* 2.8 mg/dL (0.5-1.0)
[2022-11-03] MEDS: LACTOBACILLUS ACIDOPHILUS 1 TABLET 1 TAB PO ×2 (09:57)
[2022-11-03] MEDS: MULTIVITAMIN/MINERALS 1 TABLET 1 TAB PO (09:58)
[2022-11-03] MEDS: METOPROLOL SUCCINATE (XL) 50 MG TAB PO (09:58)
[2022-11-03] MEDS: ACETAMINOPHEN 325 MG TABLET 975 MG PO ×3 (09:58→21:24)
[2022-11-03] MEDS: predniSONE 10 MG TABLET PO (09:59)
[2022-11-03] MEDS: GABAPENTIN 300 MG CAPSULE PO ×3 (09:59→21:25)
[2022-11-03] MEDS: FUROSEMIDE 20 MG TABLET PO (09:59)
[2022-11-03] MEDS: OMEPRAZOLE 20 MG CAPSULE DR PO ×2 (10:00→21:25)
[2022-11-03] MEDS: SODIUM CHLORIDE 0.9 % (FLUSH) 10 ML SYRINGE 5 ML IVF (10:01)
[2022-11-03] MEDS: HYDROCODONE-ACETAMIN 5-325 MG 1 TAB PO ×2 (11:30→21:26)
--- NOTE | 2022-11-03 14:03 | PM.GSPN ---
Subjective Subjective Date Seen: 11/03/22 Interval history: Mary states that she feels better today than she did yesterday. Yesterday she had some abdominal pain and indigestion. She had a very large bowel movement yesterday. She was noted to have low hemoglobin today down to 6.9. She has not had any further bowel movements however. No hematemesis. She does not feel lightheaded. Exam Narrative: Exam Narrative: General: Pale-appearing but in no acute distress Abdomen: Soft. Nontender. Wound: Dressing change had just been completed, however RN reports no erythema and wound base was clean without exudate or significant drainage. Const: Vital Signs, click to edit/add: Vital Signs - 24 hr 11/02/22 15:00 11/02/22 21:15 11/02/22 23:00 Temperature 97 F L 97.9 F Pulse Rate Pulse Rate [Left P ulse Oximeter] 100 97 97 Respiratory Rate 16 16 16 Blood Pressure Blood Pressure [Le ft Arm] 120/72 117/64 Pulse Oximetry 98 96 Oxygen Delivery Me thod Room Air Room Air 11/03/22 03:00 11/03/22 09:00 11/03/22 11:43 Temperature 97.9 F 97 F L Pulse Rate Pulse Rate [Left P ulse Oximeter] 114 H 110 H Respiratory Rate 16 16 16 Blood Pressure Blood Pressure [Le ft Arm] 106/56 L 102/50 L Pulse Oximetry 98 98 Oxygen Delivery Me thod Room Air Room Air 11/03/22 13:17 Temperature 97 F L Pulse Rate 110 H Pulse Rate [Left P ulse Oximeter] Respiratory Rate 16 Blood Pressure 102/50 L Blood Pressure [Le ft Arm] Pulse Oximetry 97 Oxygen Delivery Me thod Labs/Imaging Labs Labs: White blood cell count is up to 20. CRP down to 2.8 from 3.9. Imaging Imaging: I did again review the patient's CT scan given her increasing white blood cell count. Based on the scan there are no areas that appear to be undrained. Progress Note: A&P Assessment and plan (1) 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, stage 4: Problem details: Current cultures growing group C strep Status: Acute (2) Anemia: Status: Acute (3) Rheumatoid arthritis: Problem details: on daily prednisone Status: Acute (4) Chronic steroid use: Status: Acute Plan The patient is a 76-year-old female with paraplegia, chronic steroid use for rheumatoid arthritis and an ischial tuberosity stage IV ulcer with osteomyelitis now with acute anemia. Most likely source for the anemia is upper GI bleed given her upper abdominal pain/reflux yesterday as well as her recent Toradol use and her chronic steroid use. However she is not currently having any bowel movements. -reasonable to proceed with upper endoscopy tomorrow. Steroids continue, however Toradol was stopped yesterday. Lovenox is also held. Patient is getting 2 units of PRBCs and will get repeat hemoglobin later. Continue PPI and consider Carafate -white blood cell count up. Wound has continued to appear healthy without significant exudate or necrosis. Cellulitis is now resolved. Continues on IV ceftriaxone for osteomyelitis. patient did have diarrhea yesterday, currently not having any bowel movements. Reasonable to check C diff.
[2022-11-03 14:56] LABS: Slide Review Reflex Yes
[2022-11-03 14:57] LABS: Slide Review Acceptable Review (Acceptable)
--- NOTE | 2022-11-03 15:45 | ONC.NURNOTE ---
plesent alert and oriented. vs wnl except heart rate 112. LS clear. heart reg. no LE edema. abd soft. non extended poss bs x4. she states tired today. pt states abd discomfort no longer exists. no BM on my shift. dressing change after given a [place]. wet to dry dressing change. scant serous sanq. drainage on mepolex and dressing. no redness of skin surrounding wound. no puss or redness of open wound. mackenzie po. u/o 700cc. pt receiving 2 units of blood today. first one almost in. pt mackenzie well. turned and repositioned hourly. enc tcdb.
--- NOTE | 2022-11-03 15:51 | PM.IMPN1 ---
Progress Note: A&P Assessment and plan (1) 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, stage 4: Problem details: Current cultures growing group C strep Status: Acute (2) Anemia: Status: Acute (3) Rheumatoid arthritis: Problem details: on daily prednisone Status: Acute (4) Chronic steroid use: Status: Acute (5) Acute on chronic anemia: Problem details: Suspect upper GI bleeding. Guaiac stool. Ppi. Upper endoscopy to evaluate. Stop aspirin, enoxaparin. Unable to abruptly stop prednisone, chronic steroid use Status: Acute Plan Continue in hospital for further evaluation management. Time Spent With Patient Total time spent: Total time spent today is 40 minutes, 30 minutes in coordination of care and discussing with patient and other providers management of infection and bleeding and wound healing Subjective Date Seen: 11/03/22 Interval history: 76-year-old female seen in followup of hospitalization for right buttock infection with osteomyelitis and soft tissue infection. Patient reports feeling a little better today. She reports no new problems. Yesterday she was observed to have a low-grade fever and mild tachycardia with elevated inflammatory markers. She is not aware of symptoms related to this. She is not having any abdominal pain. Yesterday she reported some queasiness in her stomach but she says that is better today. She is not aware of abnormalities in her stool such as bleeding. She does have a history of bleeding ulcer in the past. This morning she was seen to have an acute drop in her hemoglobin. She had been on Ketoralac, aspirin, enoxaparin and prednisone during this hospital stay. Exam Narrative: Exam Narrative: She is alert and appears in no distress. She is oriented to her circumstances. Eyes normal. Oropharynx normal. Neck is supple out mass or adenopathy. Respirations are clear to auscultation. Cardiovascular: S1, S2, regular rate and rhythm. Abdomen: Bowel sounds active. Abdomen is soft without tenderness or mass. No significant erythema or tenderness around her buttock ulcer. No rash. Const: Vital Signs, click to edit/add: Vital Signs - 24 hr 11/02/22 21:15 11/02/22 23:00 11/03/22 03:00 Temperature 97.9 F Pulse Rate Pulse Rate [Left P ulse Oximeter] 97 97 Respiratory Rate 16 16 16 Blood Pressure Blood Pressure [Le ft Arm] 117/64 Pulse Oximetry 96 Oxygen Delivery Me thod Room Air 11/03/22 09:00 11/03/22 11:43 11/03/22 13:17 Temperature 97.9 F 97 F L 97 F L Pulse Rate 110 H Pulse Rate [Left P ulse Oximeter] 114 H 110 H Respiratory Rate 16 16 16 Blood Pressure 102/50 L Blood Pressure [Le ft Arm] 106/56 L 102/50 L Pulse Oximetry 98 98 97 Oxygen Delivery Me thod Room Air Room Air 11/03/22 13:37 11/03/22 14:22 11/03/22 15:38 Temperature 96.2 F L 96.8 F L 96.9 F L Pulse Rate 97 97 91 Pulse Rate [Left P ulse Oximeter] Respiratory Rate 14 14 18 Blood Pressure 95/46 L 100/50 L 109/52 L Blood Pressure [Le ft Arm] Pulse Oximetry 95 95 95 Oxygen Delivery Me thod 11/03/22 15:41 Temperature 96.9 F L Pulse Rate Pulse Rate [Left P ulse Oximeter] 91 Respiratory Rate 16 Blood Pressure Blood Pressure [Le ft Arm] 109/52 L Pulse Oximetry 94 Oxygen Delivery Me thod Room Air Labs Labs: Laboratory Results - last 24 hr 11/03/22 11/03/22 11/03/22 05:42 07:45 08:53 WBC 20.69 H RBC 2.46 L Hgb 6.9 L* Hct 22.8 L MCV 93 MCH 28 MCHC 30 L RDW Coeff of Lynette 15.1 Plt Count 447 H Neut % (Auto) 70.1 Lymph % (Auto) 20.3 [place] % (Auto) 6.3 Eos % (Auto) 1.0 Baso % (Auto) 0.1 Neut # (Auto) 14.50 H Lymph # (Auto) 4.20 H [place] # (Auto) 1.30 H Eos # (Auto) 0.20 Baso # (Auto) 0.00 Diff Slide Review Acceptable Review C-Reactive Protein 2.8 H Blood Type A Positive Antibody Screen NEGATIVE Crossmatch (AHG) See Detail
[2022-11-03] MEDS: cefTRIAXone 2 GM in 0.9 % SODIUM CHLORIDE Mini-bag 100 ML IVPB (17:55)
[2022-11-03] MEDS: LACTATED RINGERS 1000 ML 1,000 ML 75 ML IV (17:56)
[2022-11-03 18:45] LABS: Hemoglobin* 9.5 gm/dL (12.0-16.0)
[2022-11-03] MEDS: MELATONIN 3 MG TABLET PO (21:25)
--- NOTE | 2022-11-03 22:53 | PC.NURSE ---
Shift [id number]- Patient denies pain, premedicated prior to dressing change tonight. She is turned and repositioned with pillows per patient preference, Q2-4 hrs. She declines nutritional supplement. Daughter at bedside and supportive. Cristobal is patent and draining.
[2022-11-04] VITALS (8 sets, daily range): BP systolic 115–148; BP diastolic 50–73; PULSE 89–101; RESP 18–21; TEMP 36.1–37.9; O2SAT 90–94
[2022-11-04] MEDS: HYDROCODONE-ACETAMIN 5-325 MG 1 TAB PO ×2 (05:18→22:14)
[2022-11-04] MEDS: LACTATED RINGERS 1000 ML 1,000 ML 75 ML IV (06:53)
[2022-11-04 06:56] LABS: Basophils Percent Auto 0.2 % (0.0-3.0); Eosinophils Percent Auto 2.2 % (0.0-7.0); Hematocrit 29.7 % (33.0-51.0); Hemoglobin* 9.3 gm/dL (12.0-16.0); Immature Granulocytes Pct Auto 3.7 %; Lymphocytes Percent Auto 19.8 % (20-44); Mean Corpuscular HGB Conc 31 gm/dL (32-36); Mean Corpuscular Hemoglobin 28 pg (26-34); Mean Corpuscular Volume 88 fL (80-100); Monocytes Percent Auto 7.9 % (0.0-11.0); Neutrophils Percent Auto 66.2 % (42.0-72.0); Platelet Count* 331 K/uL (140-440); RDW Coefficient of Variation % 17.5 % (11.5-15.5); Red Blood Count 3.38 m/uL (4.00-5.20); White Blood Count* 17.89 K/uL (4.50-11.00)
[2022-11-04 07:24] LABS: Chloride* 108 mmol/L (96-114)
[2022-11-04 07:25] LABS: Potassium* 4.2 mmol/L (3.6-5.1); Sodium* 141 mmol/L (135-149)
[2022-11-04 07:27] LABS: Creatinine* 0.5 mg/dL (0.5-1.5); Est. Creatinine Clearance* 34.91; Estimated Glomerular Filt Rate 98 ml/min
[2022-11-04 07:28] LABS: Blood Urea Nitrogen* 41 mg/dL (7-30); Calcium* 8.4 mg/dL (8.4-10.6); Carbon Dioxide* 32 mmol/L (20-32); Glucose* 97 mg/dL (60-115)
[2022-11-04 07:31] LABS: C Reactive Protein* 2.2 mg/dL (0.5-1.0)
--- NOTE | 2022-11-04 07:37 | PC.NURSE ---
Shift note: The pt has been resting comfortably throughout the night. Dressing to the buttock has been C/D/I. The pt has been turned and repositioned. C/O of mild pain to the buttock- the pain has been managed with PRN pain medication. Denied chest pain and short of breath. No BM this shift. The pt has been NPO since 0000 Except a sip of water with pills.
[2022-11-04 08:05] LABS: Slide Review Reflex No
[2022-11-04] MEDS: predniSONE 10 MG TABLET PO (08:56)
[2022-11-04] MEDS: FUROSEMIDE 20 MG TABLET PO (08:56)
[2022-11-04] MEDS: GABAPENTIN 300 MG CAPSULE PO ×3 (08:56→22:03)
[2022-11-04] MEDS: METOPROLOL SUCCINATE (XL) 50 MG TAB PO (08:57)
[2022-11-04] MEDS: OMEPRAZOLE 20 MG CAPSULE DR PO ×2 (08:57→22:03)
--- NOTE | 2022-11-04 12:29 | PM.GSPN ---
Subjective Subjective Date Seen: 11/04/22 Interval history: Mary feels better today. Hemoglobin has stabilized. No fevers. Denies significant pain. Did not have pain with her dressing change this morning. Exam Narrative: Exam Narrative: General: Alert, oriented, no acute distress CV: Mildly tachycardic at 101 this morning Skin: Right ischial tuberosity wound was examined. No surrounding erythema. No significant exudate of discharge. The wound base appears primarily healthy and granulating without necrosis. Anteriorly the wound is white, where she had a significant amount of scar tissue. Const: Vital Signs, click to edit/add: Vital Signs - 24 hr 11/03/22 13:17 11/03/22 13:37 11/03/22 14:22 Temperature 97 F L 96.2 F L 96.8 F L Pulse Rate 110 H 97 97 Pulse Rate [Left P ulse Oximeter] Respiratory Rate 16 14 14 Blood Pressure 102/50 L 95/46 L 100/50 L Blood Pressure [Le ft Arm] Pulse Oximetry 97 95 95 Oxygen Delivery Me thod 11/03/22 15:38 11/03/22 15:41 11/03/22 15:53 Temperature 96.9 F L 96.9 F L 98 F Pulse Rate 91 89 Pulse Rate [Left P ulse Oximeter] 91 Respiratory Rate 18 16 16 Blood Pressure 109/52 L 108/54 L Blood Pressure [Le ft Arm] 109/52 L Pulse Oximetry 95 94 94 Oxygen Delivery Me od Room Air 11/03/22 16:38 11/03/22 17:45 11/03/22 18:30 Temperature 97.3 F L 98.2 F 96.9 F L Pulse Rate 87 91 97 Pulse Rate [Left P ulse Oximeter] Respiratory Rate 16 18 18 Blood Pressure 115/57 L 137/68 139/44 L Blood Pressure [Le ft Arm] Pulse Oximetry 95 94 94 Oxygen Delivery Me thod 11/03/22 19:01 11/04/22 00:00 11/04/22 00:00 Temperature 96.9 F L 97.5 F L Pulse Rate Pulse Rate [Left P ulse Oximeter] 97 94 99 Respiratory Rate 18 18 18 Blood Pressure Blood Pressure [Le ft Arm] 139/44 L 148/73 H Pulse Oximetry 94 94 [facility] 11/04/22 05:18 11/04/22 05:00 01/23/23 07:00 Temperature 97.5 F L 97 F L Pulse Rate Pulse Rate [Left P ulse Oximeter] 89 89 Respiratory Rate 18 21 Blood Pressure Blood Pressure [Le ft Arm] 136/69 Pulse Oximetry 94 Oxygen Delivery Me thod Room Air 11/04/22 07:00 Temperature 98.5 F Pulse Rate Pulse Rate [Left P ulse Oximeter] 101 H Respiratory Rate 21 Blood Pressure Blood Pressure [Le ft Arm] 127/57 L Pulse Oximetry 91 Oxygen Delivery Me thod Room Air Labs/Imaging Labs Labs: White blood cell count is down slightly to 17 from 20. Hemoglobin stable at 9.5 CRP is 2 point 2 from 2.8. Progress Note: A&P Assessment and plan (1) Acute on chronic anemia: Problem details: Suspect upper GI bleeding. Guaiac stool. Ppi. Upper endoscopy to evaluate. Stop aspirin, enoxaparin. 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 Culture growing beta-hemolytic staff. This is susceptible to ceftriaxone which she is on currently. CT scan shows osteomyelitis however there was no visible bone noted intraoperatively in the base of the wound. Wound appears to be overall clean. The anterior portion the wound is white but this was significant scar tissue. This was debrided back until there was punctate bleeding noted. -recommend continued IV antibiotics, trending white blood cell count and CRP. Would benefit from ID consult as outpatient to determine antibiotic duration. Her condition is complicated by chronic steroid use. -while she is an inpatient continue b.i.d. wet to dry dressing changes with VAshe and Kerlix - nursing needs to ensure that they are packing the most posterior aspect of the wound behind the ischial tuberosity. This can transition to daily dressing changes when she is discharged. Patient follow-up in wound clinic. -hemoglobin drop yesterday 2 g. Did have guaiac-positive stool but has not had significant stool since this occurred. Likely secondary to chronic steroid use, NSAIDs and acute illness. Upper endoscopy is planned for today. Continue
--- NOTE | 2022-11-04 13:40 | W.ANESCHARGE ---
Anesthesia Charges Start Date/Time Anesthesia Start Date: 11/04/22 Anesthesia Start Time: 13:15 Stop Date/Time Anesthesia Stop Date: 11/04/22 Anesthesia Stop Time: 13:31 Summary Emergency: No Extremes of Age: Over 71-CPT 00196
--- NOTE | 2022-11-04 14:10 | W.ANESCHARGE ---
Anesthesia Charges Start Date/Time Anesthesia Start Date: 11/04/22 Anesthesia Start Time: 13:15 Stop Date/Time Anesthesia Stop Date: 11/04/22 Anesthesia Stop Time: 13:31 Summary Emergency: No Extremes of Age: Over 71-CPT 69708
[2022-11-04] MEDS: ACETAMINOPHEN 325 MG TABLET 975 MG PO ×2 (14:52→22:03)
--- NOTE | 2022-11-04 15:55 | PM.IMPN1 ---
Progress Note: A&P Assessment and plan (1) Acute on chronic anemia: Problem details: Pre-pyloric ulcer probably the culprit lesion causing her recent hemoglobin drop. Dr. Dow recommends high-dose PPI for 3 months. 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 Last April had MRSA cultured from wound. Currently on ceftriaxone. Status: Acute Plan Continue in-hospital for monitoring of bleeding and infection. Possible discharge to intermediate facility in the next day or 2. Time Spent With Patient Total time spent: Total time spent today is 40 minutes, 30 minutes in coordination of care discussing with patient and other providers ongoing management of infection, osteomyelitis, pre-pyloric ulcer. Subjective Date Seen: 11/04/22 Interval history: 76-year-old female seen in followup of hospitalization for right buttock infection with osteomyelitis and soft tissue infection. Patient reports feeling good today.. She reports no new problems. She underwent upper endoscopy today there was a nonbleeding pre-pyloric ulcer identified. This was suspected to be the cause of her hemoglobin drop. H pylori biopsies pending. Exam Narrative: Exam Narrative: She is alert. Mood and affect are bright. Respirations are clear to auscultation. Cardiovascular: S1, S2, regular rate and rhythm. Abdomen is soft without tenderness or mass. Right buttock ulcer without significant erythema or tenderness. Const: Vital Signs, click to edit/add: Vital Signs - 24 hr 11/03/22 16:38 11/03/22 17:45 11/03/22 18:30 Temperature 97.3 F L 98.2 F 96.9 F L Pulse Rate 87 91 97 Pulse Rate [Left P ulse Oximeter] Respiratory Rate 16 18 18 Blood Pressure 115/57 L 137/68 139/44 L Blood Pressure [Le ft Arm] Pulse Oximetry 95 94 94 Oxygen Delivery Ga thod 11/03/22 19:01 11/04/22 00:00 11/04/22 00:00 Temperature 96.9 F L 97.5 F L Pulse Rate Pulse Rate [Left P ulse Oximeter] 97 94 99 Respiratory Rate 18 18 18 Blood Pressure Blood Pressure [Le ft Arm] 139/44 L 148/73 H Pulse Oximetry 94 94 [facility] 11/04/22 05:18 11/04/22 05:00 11/04/22 07:00 Temperature 97.5 F L 97 F L Pulse Rate Pulse Rate [Left P ulse Oximeter] 89 89 Respiratory Rate 18 21 Blood Pressure Blood Pressure [Le ft Arm] 136/69 Pulse Oximetry 94 Oxygen Delivery Me thod Room Air 11/04/22 07:00 Temperature 98.5 F Pulse Rate Pulse Rate [Left P ulse Oximeter] 101 H Respiratory Rate 21 Blood Pressure Blood Pressure [Le ft Arm] 127/57 L Pulse Oximetry 91 Oxygen Delivery Me thod Room Air Documenting provider has reviewed patient's vital signs: yes Labs Labs: Laboratory Results - last 24 hr 11/03/22 11/03/22 11/04/22 07:45 18:36 05:53 WBC 17.89 H RBC 3.38 L Hgb 9.5 L 9.3 L Hct 29.7 L MCV 88 MCH 28 MCHC 31 L RDW Coeff of Lynette 17.5 H Plt Count 331 Neut % (Auto) 66.2 Lymph % (Auto) 19.8 L [place] % (Auto) 7.9 Eos % (Auto) 2.2 Baso % (Auto) 0.2 Neut # (Auto) 11.80 H Lymph # (Auto) 3.50 H [place] # (Auto) 1.40 H Eos # (Auto) 0.40 Baso # (Auto) 0.00 Sodium Potassium Chloride Carbon Dioxide BUN Creatinine Estimated Creat Clear Estimated GFR Glucose Calcium C-Reactive Protein Crossmatch (AHG) See Detail 11/04/22 05:53 WBC RBC Hgb Hct MCV MCH MCHC RDW Coeff of Lynette Plt Count Neut % (Auto) Lymph % (Auto) [place] % (Auto) Eos % (Auto) Baso % (Auto) Neut # (Auto) Lymph # (Auto) [place] # (Auto) Eos # (Auto) Baso # (Auto) Sodium 141 Potassium 4.2 Chloride 108 Carbon Dioxide 32 BUN 41 H Creatinine 0.5 Estimated Creat Clear 34.91 Estimated GFR 98 Glucose 97 Calcium 8.4 C-Reactive Protein 2.2 H Crossmatch (G)
--- NOTE | 2022-11-04 19:27 | PC.NURSE ---
Nursing Care Hours: [id number] Pt this shift calm and cooperative with cares. Alert and oriented. Turned and repositioned Q2-3H. NPO for endoscopy in morning, then tolerated regular diet. Cristobal patent, pale ankit output. Wet to dry dressing change done today, covered with Mepilex. Wound bed red and moist, scant serosanguineous output on old dressing. Smear BM, positive Hemoccult. Saline locked IV. Coarse crackles heard in mid anterior lobes, IS given and instructed on how to use. Pt able to get to 750-1000. Using independently in room. Rated pain 2-4/10 most of shift, end of shift was 6/10 but pt requested that [place] be held until bedtime. Pt repositioned and verbalized pain decreased.
[2022-11-04] MEDS: MELATONIN 3 MG TABLET PO (22:03)
[2022-11-04] MEDS: SODIUM CHLORIDE 0.9 % (FLUSH) 10 ML SYRINGE 5 ML IVF (22:16)
[2022-11-05 02:55] VITALS: BP 119/79; PULSE 97; RESP 18; TEMP 36.6; O2SAT 92
--- NOTE | 2022-11-05 05:52 | PC.NURSE ---
Shift note: Pt has been sleeping very well tonight, denied pain, SOB, cough and n/v. Dressing to the coccyx is changed, packing appears socked with blood stain. Vitally stable.
[2022-11-05 07:00] VITALS: BP 149/65; PULSE 109; RESP 20; TEMP 36.1; O2SAT 94
[2022-11-05 07:04] LABS: Hematocrit 29.7 % (33.0-51.0); Hemoglobin* 9.3 gm/dL (12.0-16.0); Lymphocytes Percent Auto 20.9 % (20-44); Mean Corpuscular HGB Conc 31 gm/dL (32-36); Mean Corpuscular Hemoglobin 28 pg (26-34); Mean Corpuscular Volume 90 fL (80-100); Monocytes Percent Auto 7.6 % (0.0-11.0); Neutrophils Percent Auto 66.4 % (42.0-72.0); Platelet Count* 344 K/uL (140-440); RDW Coefficient of Variation % 17.1 % (11.5-15.5); Red Blood Count 3.31 m/uL (4.00-5.20); White Blood Count* 15.03 K/uL (4.50-11.00)
[2022-11-05 07:05] LABS: Basophils Percent Auto 0.3 % (0.0-3.0); Eosinophils Percent Auto 2.5 % (0.0-7.0); Immature Granulocytes Pct Auto 2.3 %
[2022-11-05 07:17] LABS: Slide Review Reflex No
[2022-11-05 07:28] LABS: C Reactive Protein* 1.8 mg/dL (0.5-1.0)
[2022-11-05] MEDS: ACETAMINOPHEN 325 MG TABLET 975 MG PO (08:14)
[2022-11-05] MEDS: SENNOSIDES/DOCUSATE TABLET 1 TAB PO (08:15)
[2022-11-05] MEDS: OMEPRAZOLE 20 MG CAPSULE DR PO (08:15)
[2022-11-05] MEDS: predniSONE 10 MG TABLET PO (08:16)
[2022-11-05] MEDS: FUROSEMIDE 20 MG TABLET PO (08:16)
[2022-11-05] MEDS: levoFLOXacin 500 MG TABLET PO (08:16)
[2022-11-05] MEDS: MULTIVITAMIN/MINERALS 1 TABLET 1 TAB PO (08:16)
[2022-11-05] MEDS: METOPROLOL SUCCINATE (XL) 50 MG TAB PO (08:17)
[2022-11-05] MEDS: GABAPENTIN 300 MG CAPSULE PO (08:17)
[2022-11-05] MEDS: SODIUM CHLORIDE 0.9 % (FLUSH) 10 ML SYRINGE 5 ML IVF (08:17)
[2022-11-05] MEDS: LACTOBACILLUS ACIDOPHILUS 1 TABLET 1 TAB PO (08:20)
--- NOTE | 2022-11-05 09:29 | PC.SOCIAL ---
Discharge planning- Phone call to Jennifer Linder in admissions at [facility]. Informed that pt would be transported to [facility] at 11:00 am via EMS transport. Completed preadmission screening for pt to admit to [facility] today. Confirmation #[id number]. Faxed copy to [facility].
--- NOTE | 2022-11-05 09:38 | P.DS_ITS ---
DS: Providers Provider Date Seen: 11/05/22 Date of admission: 10/31/22 10:59 Primary care physician: Flo Mckeon MD Admitting Clinician: Melvi Bear MD Attending Physician on discharge: Melvi Bear MD Date of Discharge: 11/05/22 DS: Diagnosis Discharge Diagnosis (1) Acute on chronic anemia: Status: Acute Problem details: Pre-pyloric ulcer probably the culprit lesion causing her recent hemoglobin drop. Dr. Dow recommends high-dose PPI for 3 months. 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 Last April had MRSA cultured from wound. Oral antibiotics with cefadroxil for group C strep and doxycycline for history of MRSA. Likely will need long-term course of treatment due to chronic osteomyelitis (4) Osteomyelitis: Status: Acute Problem details: CT Abd/Pelvis 10/30/22: Chronic right posterior ischial soft tissue ulcer with adjacent deep fluid collection and chronic osteomyelitis of the right posterior iliac bone. Overall, the findings are similar to the prior studies. History of MRSA in wound previously. Current cultures growing group C strep. (5) Paraplegia: Status: Acute Problem details: since age 6; muscle atrophy (chronic) bilaterally (6) Rheumatoid arthritis: Status: Acute Problem details: on daily prednisone (7) Chronic pain: Status: Acute Problem details: Continue gabapentin and hydrocodone. 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 She had had increasing pain odor and discharge related to her right ischial wound. She is known to have chronic osteomyelitis. Repeat CT scan confirmed ongoing evidence of osteomyelitis. She was taken to the OR for surgical debridement of the wound. Cultures obtained grew group group C strep. She was also found to have urinary infection with Klebsiella. She has been treated with levofloxacin and ceftriaxone. Outpatient antibiotics will be cefadroxil for group C strep and doxycycline because she has had a history of MRSA infection in her wound from last summer. Patient had an acute drop in her hemoglobin during her hospital stay. She had upper endoscopy which showed a nonbleeding pre-pyloric ulcer. Aspirin enoxaparin and NSAIDs were discontinued. Hemoglobin stabilized after 2 unit blood transfusion. She was treated with PPI. Recommendation is for 3 month course of treatment of high-dose PPI. If possible avoid NSAIDs and aspirin. P aamir continues to need prednisone for rheumatoid arthritis. Status at Discharge Functional status at discharge: bed bound Overall status at discharge: patient is back to baseline Time Spent with Patient Time attestation: Total time spent providing and/or coordinating discharge services: Time spent: Greater than 30 minutes Exam Narrative: Exam Narrative: She is alert and appears in no distress. Respirations are clear to auscultation. Cardiovascular: S1, S2, regular rate and rhythm. No murmur gallop or rub. Abdomen: Bowel sounds active. Abdomen is soft without tenderness. Right buttock ulcer is unchanged. Const: Vital Signs, click to edit/add: Vital Signs - 24 hr 11/04/22 11:00 11/04/22 15:00 11/04/22 15:00 Temperature 100.2 F H 98.4 F Pulse Rate [Left P ulse Oximeter] 98 98 96 Respiratory Rate 21 21 21 Blood Pressure [Le ft Arm] 135/60 137/56 L Blood Pressure [Ri ght Arm] Pulse Oximetry 90 93 Oxygen Delivery Me thod Room Air Room Air 11/04/22 19:00 11/04/22 23:00 11/05/22 02:55 Temperature 98.2 F 98 F 98 F Pulse Rate [Left P ulse Oximeter] 100 97 97 Respiratory Rate 18 18 18 Blood Pressure [Le ft Arm] 115/54 L 126/50 L 119/79 Blood Pressure [Ri ght Arm] Pulse Oximetry 91 91 92 Oxygen Delivery Me thod Room Air Room Air Room Air 11/05/22 07:00 11/05/22 07:00 Temperature 96.9 F L Pulse Rate [Left P ulse Oximeter] 109 H 109 H Respiratory Rate 20 20 Blood Pressure [Le ft Arm] Blood Pressure [Ri ght Arm] 149/65 H Pulse Oximetry 94 Oxygen Delivery Me thod Room Air Documenting provider has reviewed patient's vital signs: yes DS: Data Data Completed and Pending Labs on day of discharge: Labs from last 24 hours 11/05/22 11/05/22 05:50 05:50 WBC 15.03 H RBC 3.31 L Hgb 9.3 L Hct 29.7 L MCV 90 MCH 28 MCHC 31 L RDW Coeff of Lynette 17.1 H Plt Count 344 Neut % (Auto) 66.4 Lymph % (Auto) 20.9 [place] % (Auto) 7.6 Eos % (Auto) 2.5 Baso % (Auto) 0.3 Neut # (Auto) 10.00 H Lymph # (Auto) 3.10 H [place] # (Auto) 1.10 H Eos # (Auto) 0.40 Baso # (Auto) 0.00 C-Reactive Protein 1.8 H Discharge Plan Discharge Disposition: [facility] Discharge Location: [facility] Date of Admission: 10/31/22 10:59 Attending Provider on Discharge: Roshan Kline Consulting Providers: [place] Malik Primary Care Provider: Flo Mckeon Condition: Improved Anticipated Discharge Date/Time: 11/05/22 09:11 Discharge Medications: New hydrocodone-acetaminophen 5-325 mg Tablet 1 tab PO BID PRN (Reason: pain) Qty: 60 0RF cefadroxil 500 mg capsule 500 mg PO BID Qty: 60 0RF doxycycline hyclate 100 mg capsule 100 mg PO BID Qty: 60 0RF omeprazole 20 mg capsule,delayed release(DR/EC) 20 mg PO BID Qty: 60 2RF Continued multivitamin [Daily Multi-Vitamin] Tablet 1 tab PO DAILY Probiotic 3 billion cell capsule 3,000 mmu cells PO DAILY Rx Instructions: administer with a meal pseudoephedrine HCl 30 mg tablet 30 mg PO BID PRN metoprolol succinate 50 mg tablet extended release 24 hr 50 mg PO DAILY prednisone 5 mg tablet 10 mg PO DAILY furosemide 20 mg tablet 20 mg PO DAILY gabapentin 300 mg capsule 300 mg PO TID Qty: 270 2RF Discontinued naproxen sodium 220 mg tablet 220 mg PO BID PRN aspirin 81 mg tablet,delayed release (DR/EC) 81 mg PO DAILY celecoxib 200 mg capsule 200 mg PO BID hydrocodone-acetaminophen 5-325 mg tablet 1 tab PO BID PRN (Reason: pain) Qty: 35 0RF Discharge Orders: Discharge Order (Routine); Ordered 11/05/22 Ordered By: Roshan Kline Additional Instructions: Follow-up with [facility], [place], next available appointment Activity Detail: Reposition in bed or chair to offload pressure from right buttock Discharge Diet: Regular Follow Up Appointments: [facility] [Outside] (Patient is being discharge to SNF.) Flo Mckeon MD [Primary Care Provider] - Wound Care: Daily wet to dry dressing changes with Vashe and cover with Mepilex Admit to: SNF Discharge Potential: Fair Length of Stay: 30-90 days Can use facility standing orders?: Yes Code Status: Full Code Rehab Potential: Fair
[2022-11-05 10:00] VITALS: BP 149/65; PULSE 109; RESP 20; TEMP 36.1
[2022-11-05 10:05] VITALS: BP 149/65; PULSE 109; RESP 20; TEMP 36.1
--- NOTE | 2022-11-05 10:11 | PC.NURSE ---
Attempted to call nurse to nurse report to [facility]. Was unable to give report as two nurses were in meetings and the others were in patient rooms. The person stated that they received nurse to nurse yesterday and wanted to know if anything changed. Nothing has changed. told them if they had questions they could call back here.
--- NOTE | 2022-11-05 10:58 | PC.NURSE ---
Discharge Note: Patient was assisted by 3 to get on EMS stretcher. Patient is alert and orientated. Asked EMS if they had any questions and they declined having any questions. Patient and her belongings went with EMS to [facility].
== END 2022-11-05 11:00 | DRG 570 ==
LOC: ED 09:45 → MEDSURG 17:36
PROVIDERS: Family Medicine; Internal Medicine; Surgery; Admitting Provider Family Medicine; Emergency Provider Family Medicine; PCP Family Medicine; Visit Provider Family Medicine
PROC: 0JBL0ZZ Excision of Right Upper Leg Subcutaneous Tissue and Fascia, Open Approach (ICD-10-PCS; principal; 2022-10-31 12:30)
DX: L89.44 Pressure ulcer of contiguous site of back, buttock and hip, stage 4 (principal); K25.4 Chronic or unspecified gastric ulcer with hemorrhage; D62 Acute posthemorrhagic anemia; M86.651 Other chronic osteomyelitis, right thigh; G12.9 Spinal muscular atrophy, unspecified; L03.115 Cellulitis of right lower limb; G37.3 Acute transverse myelitis in demyelinating disease of central nervous system; G82.20 Paraplegia, unspecified; N39.0 Urinary tract infection, site not specified; B96.1 Klebsiella pneumoniae [K. pneumoniae] as the cause of diseases classified elsewhere; N31.9 Neuromuscular dysfunction of bladder, unspecified; B95.4 Other streptococcus as the cause of diseases classified elsewhere; R10.9 Unspecified abdominal pain; Z79.52 Long term (current) use of systemic steroids; G89.29 Other chronic pain; I10 Essential (primary) hypertension; M06.9 Rheumatoid arthritis, unspecified; R19.7 Diarrhea, unspecified; Z86.14 Personal history of Methicillin resistant Staphylococcus aureus infection
CPT/HCPCS: 00300; 00731; 36415; 36430; 43239; 74177; 80048; 80053; 80076; 81001; 82962; 83036; 83605; 84145; 85018; 85025; 85027; 85610; 86140; 86850; 86900; 86901; 86922; 87040; 87070; 87077; 87086; 87186; 87205; 87493; 87502; 87634; 87635; 88305; 94761; 99100; 99284; 99285; A9153; A9270; G0378; J0696; J1650; J1885; J1956; J2250; J2704; J3010; J3490; J7120; J7512; P9016; Q9967

== ENCOUNTER 2022-11-05 10:49 | Outpatient (CLI) | payer MEDICARE, SELFPAY | END 2022-11-05 10:50 | disposition home or self-care (01) | LOC: AMB 11-07 10:12 | PROVIDERS: PCP Family Medicine; Visit Provider Emergency Medicine | DX: R53.1 Weakness (principal); M86.9 Osteomyelitis, unspecified | CPT/HCPCS: A0425; A0428 ==

== ENCOUNTER 2022-11-14 12:54 | Outpatient (CLI) | payer MEDICARE, SELFPAY | END 2022-11-14 12:55 | disposition home or self-care (01) | LOC: WOUND 12:54 | PROVIDERS: PCP Family Medicine; Visit Provider Nurse Practitioner Family | DX: L89.314 Pressure ulcer of right buttock, stage 4 (principal); M86.68 Other chronic osteomyelitis, other site; I89.0 Lymphedema, not elsewhere classified; G82.20 Paraplegia, unspecified; Z99.3 Dependence on wheelchair | CPT/HCPCS: 11042 ==

== ENCOUNTER 2022-11-21 12:26 | Outpatient (CLI) | payer MEDICARE, SELFPAY | END 2022-11-21 12:27 | disposition home or self-care (01) | PROVIDERS: PCP Family Medicine; Visit Provider Nurse Practitioner Family | DX: L89.314 Pressure ulcer of right buttock, stage 4 (principal); M86.68 Other chronic osteomyelitis, other site; I89.0 Lymphedema, not elsewhere classified; I87.2 Venous insufficiency (chronic) (peripheral); G82.20 Paraplegia, unspecified; Z99.3 Dependence on wheelchair | CPT/HCPCS: 11042; 11045 ==

== ENCOUNTER 2022-11-28 12:41 | Outpatient (CLI) | payer MEDICARE, SELFPAY | END 2022-11-28 12:42 | disposition home or self-care (01) | LOC: WOUND 12:41 | PROVIDERS: PCP Family Medicine; Visit Provider Nurse Practitioner Family | DX: L89.314 Pressure ulcer of right buttock, stage 4 (principal); M86.68 Other chronic osteomyelitis, other site; Q82.0 Hereditary lymphedema | CPT/HCPCS: 11042 ==

== ENCOUNTER 2022-12-12 12:41 | Outpatient (CLI) | payer MEDICARE, SELFPAY | END 2022-12-12 12:42 | disposition home or self-care (01) | LOC: WOUND 12:41 | PROVIDERS: PCP Family Medicine; Visit Provider Nurse Practitioner Family | DX: M86.68 Other chronic osteomyelitis, other site (principal); L89.314 Pressure ulcer of right buttock, stage 4; I87.2 Venous insufficiency (chronic) (peripheral); Q82.0 Hereditary lymphedema | CPT/HCPCS: 11042 ==

== ENCOUNTER 2022-12-26 12:53 | Outpatient (CLI) | payer MEDICARE, SELFPAY | END 2022-12-26 12:54 | disposition home or self-care (01) | LOC: WOUND 12:53 | PROVIDERS: PCP Family Medicine; Visit Provider Nurse Practitioner Family | DX: M86.68 Other chronic osteomyelitis, other site (principal); L89.314 Pressure ulcer of right buttock, stage 4; Q82.0 Hereditary lymphedema; Z99.3 Dependence on wheelchair | CPT/HCPCS: 11042 ==

== ENCOUNTER 2023-01-09 12:41 | Outpatient (CLI) | payer MEDICARE, SELFPAY | END 2023-01-09 12:42 | disposition home or self-care (01) | LOC: WOUND 12:41 | PROVIDERS: PCP Family Medicine; Visit Provider Nurse Practitioner Family | DX: L89.314 Pressure ulcer of right buttock, stage 4 (principal); M86.68 Other chronic osteomyelitis, other site; Q82.0 Hereditary lymphedema; G82.20 Paraplegia, unspecified; Z99.3 Dependence on wheelchair | CPT/HCPCS: 11042 ==

== ENCOUNTER 2023-01-13 11:40 | Outpatient (CLI) | payer MEDICARE, SELFPAY | END 2023-01-13 11:41 | disposition home or self-care (01) | LOC: AMB 01-16 22:32 | PROVIDERS: PCP Family Medicine; Visit Provider Emergency Medicine | DX: R06.09 Other forms of dyspnea (principal); R53.1 Weakness | CPT/HCPCS: A0425; A0427 ==

== ENCOUNTER 2023-01-13 12:05 | Inpatient (IN) | payer MEDICARE, SELFPAY ==
[2023-01-13] VITALS (19 sets, daily range): BP systolic 107–139; BP diastolic 51–83; PULSE 87–121; RESP 18–24; TEMP 36.7–36.9; O2SAT 90–99
--- NOTE | 2023-01-13 12:20 | CRLHL7_ITS ---
For Patients: As a result of the Century Cures Act, medical imaging exams and procedure reports are released immediately into your electronic medical record. You may view this report before your referring provider. If you have questions, please contact your health care provider. INDICATION: Cough, shortness of breath TECHNIQUE: Chest 1 view. COMPARISON: 08/05/2021 FINDINGS: Cardiovascular and mediastinum: Heart size and vasculature are normal in caliber and appearance. Mediastinum is within normal limits. Lungs and pleural space: Lungs are clear. No sign of infiltrate or mass. No sign of pleural effusion. No pneumothorax. Bones and soft tissues: No significant findings. Posterior spinal bobby thoracolumbar spine. IMPRESSION: No acute findings. Dictated by Jeremiah Desai MD @ 01/13/2023 1:02:00 PM Dictated by: Jeremiah Desai MD @ 01/13/2023 13:02:07 (Electronically Signed)
--- NOTE | 2023-01-13 12:25 | ED.NURSE ---
Pt O2 satting ~90% on RA on arrival. Placed on 2L O2 NC. Sats up to ~97% on 2L.
--- NOTE | 2023-01-13 12:32 | ED_ITS ---
HPI - General Adult General Date Seen: 01/13/23 Chief complaint: Cough Stated complaint: Weak Time Seen by Provider: 01/13/23 12:20 Source: patient and EMS Mode of arrival: EMS Limitations: no limitations History of Present Illness HPI narrative: Patient is a 77-year-old brought in by EMS from a facility where she is undergoing rehab. She is quadriplegic. She has a known sacral ulcer which is reported to be stable. She is here due to cough which started a couple of days ago and has been getting worse. This morning she felt significantly short of breath, the care facility noted a temperature of a 101? and O2 sats of 88% on room air. Paramedics note that she was not febrile on their arrival. They put her on 2 L of oxygen and state that O2 sats were in the high 90s thereafter. She denies chest pain. She does have pain at the site of her ulcer but says that is normal and unchanged. She feels better on oxygen. She has not had vomiting or diarrhea. She denies previous history of pneumonia. Does not have any underlying lung disease, does not use inhalers, no smoking history. She denies a history of congestive heart failure but does take Lasix she says for history of peripheral edema. She has a history of rheumatoid arthritis, is on chronic daily prednisone. Related Data Home Medications Medication Instructions Recorded Confirmed lactobacillus combination no.4 3 3,000 mmu cells PO DAILY 07/10/22 01/13/23 billion cell capsule (Probiotic) multivitamin (Daily Multi-Vitamin 1 tab PO DAILY 07/10/22 01/13/23 tablet) pseudoephedrine HCl 30 mg tablet 30 mg PO BID PRN 07/25/22 01/13/23 furosemide 20 mg tablet 20 mg PO DAILY 10/30/22 01/13/23 metoprolol succinate 50 mg 50 mg PO DAILY 10/30/22 10/30/22 tablet,extended release 24 hr prednisone 5 mg tablet 10 mg PO DAILY 10/30/22 01/13/23 Previous Rx's Medication Instructions Recorded gabapentin 300 mg capsule 300 mg PO TID #270 caps 09/18/22 hydrocodone 5 mg-acetaminophen 325 1 tab PO BID PRN pain #60 tabs 11/05/22 mg tablet omeprazole 20 mg capsule,delayed 20 mg PO BID #60 caps 11/05/22 release Allergies Allergy/AdvReac Type Severity Reaction Status Date / Time vancomycin Allergy Severe Hives Verified 01/13/23 13:51 piperacillin Allergy Intermediate Rash Verified 01/13/23 13:51 tazobactam Allergy Intermediate Rash Verified 01/13/23 13:51 Review of Systems Status of ROS: Reports: 10 or more systems reviewed and unremarkable except as noted in History and below [facility] Medical History Acute on chronic anemia ?D64.9 - Anemia, unspecified (ICD-10) Anemia ?D64.9 - Anemia, unspecified (ICD-10) Chronic pain ?G89.29 - Other chronic pain (ICD-10) Chronic steroid use Diarrhea ?R19.7 - Diarrhea, unspecified (ICD-10) History of methicillin resistant Staphylococcus aureus infection ?Z86.14 - Personal history of Methicillin resistant Staphylococcus aureus infection (ICD-10) HTN (hypertension) ?I10 - Essential (primary) hypertension (ICD-10) Neurogenic bladder ?N31.9 - Neuromuscular dysfunction of bladder, unspecified (ICD-10) Osteoporosis ?M81.0 - Age-related osteoporosis without current pathological fracture (ICD- 10) Paraplegia ?G82.20 - Paraplegia, unspecified (ICD-10) Recurrent urinary tract infection ?N39.0 - Urinary tract infection, site not specified (ICD-10) Rheumatoid arthritis ?M06.9 - Rheumatoid arthritis, unspecified (ICD-10) Septic shock ?A41.9 - Sepsis, unspecified organism (ICD-10) ?R65.21 - Severe sepsis with septic shock (ICD-10) 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 - Acute transverse myelitis in demyelinating disease of central nervous system (ICD-10) Tubular adenoma of colon ?D12.6 - Benign neoplasm of colon, unspecified (ICD-10) Social History Highest level of school completed/degree received: decline to answer Smoking Status: Never smoker Do you use any of these nicotine containing products: None and E-Cigarettes How often do you have a drink containing alcohol: never How often do you have six or more drinks on one occasion: Never AUDIT-C Alcohol total score: 0 Non-prescribed substance use: denies use Caffeine: No service: No Exam Narrative: Exam Narrative: Vital signs as noted above. In general, an alert, nontoxic elderly woman. Off of oxygen she is tachypneic and appears dyspneic. Head: Normocephalic, atraumatic. Eyes: Pupils are equal reactive. Extraocular movements are full. Conjunctivae are normal. ENT: Mucous membranes are moist. Neck: Supple without lymphadenopathy. No stridor. Heart: Tachycardic and regular, soft systolic murmur heard best over the right sternal border. Lungs: Breathing comfortably on oxygen. Some wheezes and occasional crackles noted at the left base. Otherwise clear. Back: On the right sacral area that she has a dressing over her ulcer. There is no surrounding erythema. Abdomen: Soft and nontender. No organomegaly. Extremities: Bilateral legs are significantly atrophied. No edema. Neurologic: Patient is alert and oriented to person and place. Speech is fluent. Face is symmetric. Moves all extremities equally. Affect: Normal. Skin: Warm and dry. Well perfused. Const: Vital Signs, click to edit/add: Vital Signs - 24 hr 01/13/23 12:17 01/13/23 12:30 01/13/23 12:30 Temperature 98.0 F Pulse Rate Pulse Rate [Pulse Oximeter] 120 H Respiratory Rate 24 Blood Pressure Blood Pressure [Le ft Upper Arm] 126/51 L Pulse Oximetry 90 97 97 Oxygen Delivery Me thod Room Air Nasal Cannula Oxygen Flow Rate 2 01/13/23 12:31 01/13/23 12:45 01/13/23 12:48 Temperature Pulse Rate 119 H 121 H 118 H Pulse Rate [Pulse Oximeter] Respiratory Rate Blood Pressure 123/83 Blood Pressure [Le ft Upper Arm] Pulse Oximetry 98 97 96 Oxygen Delivery Me thod Nasal Cannula Nasal Cannula Nasal Cannula Oxygen Flow Rate 2 2 2 01/13/23 12:49 01/13/23 13:00 01/13/23 13:02 Temperature Pulse Rate 117 H 120 H Pulse Rate [Pulse Oximeter] Respiratory Rate Blood Pressure 139/57 L Blood Pressure [Le ft Upper Arm] Pulse Oximetry 96 96 Oxygen Delivery Me thod Nasal Cannula Nasal Cannula Nasal Cannula Oxygen Flow Rate 2 2 2 01/13/23 13:03 01/13/23 14:07 01/13/23 14:15 Temperature Pulse Rate 120 H 106 H 106 H Pulse Rate [Pulse Oximeter] Respiratory Rate Blood Pressure Blood Pressure [Le ft Upper Arm] Pulse Oximetry 95 98 98 Oxygen Delivery Me thod Nasal Cannula Nasal Cannula Nasal Cannula Oxygen Flow Rate 2 2 2 01/13/23 14:30 01/13/23 14:45 01/13/23 15:00 Temperature Pulse Rate 104 H 106 H 112 H Pulse Rate [Pulse Oximeter] Respiratory Rate Blood Pressure Blood Pressure [Le ft Upper Arm] Pulse Oximetry 98 99 98 Oxygen Delivery Me thod Nasal Cannula Nasal Cannula Nasal Cannula Oxygen Flow Rate 2 2 2 01/13/23 15:15 01/13/23 15:30 Temperature Pulse Rate 108 H 109 H Pulse Rate [Pulse Oximeter] Respiratory Rate Blood Pressure Blood Pressure [Le ft Upper Arm] Pulse Oximetry 98 99 Oxygen Delivery Me thod Nasal Cannula Nasal Cannula Oxygen Flow Rate 2 1 Documenting provider has reviewed patient's vital signs: yes Course Course Hospital Course: On arrival, patient was placed on monitor and maintained on oxygen 2 L. A chest x-ray by my review does not show significant infiltrate, pleural effusion, pulmonary edema or other acute abnormalities. Final radiology read is of no acute disease. I tried giving her a DuoNeb, she said that it made her cough and maybe helped with breathing a little bit, but off oxygen she still is satting about 87-88% on room air, and shows moderate increased work of breathing. I did elect to do a CT of the chest given persistent tachycardia and her paraplegic status, D-dimer ultimately did return elevated as well. I do not see evidence of significant PE on her CT scan, nor do I see significant infiltrate. Final radiology read is pending. Labs are notable for a normal white blood cell count with a depressed neutrophil count at 31%. Very mildly anemic at 11.6. Electrolytes notable for a sodium of 134, normal potassium. CO2 is mildly elevated at 36. BUN creatinine are unremarkable. Lactate is normal at 1 point wondered CRP is elevated about 8. Her LFTs are mildly elevated, AST of 70, ALT of 134 and alk-phos is 251, bilirubin is normal. In talking with her, she does have a history of cholecyste ctomy, she says she has intact sensation in her abdomen and would know if she had abdominal pain. She denies any upper abdominal pain, she says she has had some gas. She has not had vomiting, does not have any tenderness in the right upper quadrant. Significance of the LFTs unclear at this time. A urinalysis shows positive nitrites, 2-5 red cells and 10-25 white blood cells, this is from an indwelling Cristobal catheter, and so the abnormal UA is not unexpected. She has not had fevers while here. Her heart rate did respond to a L of normal saline and is down to about 104. A COVID and influenza swab was negative. Point of care troponin was 0.03. An EKG on arrival showed a sinus tachycardia with a ventricular rate of 115. She did not have any ST segment changes. Overall, etiology of her cough and hypoxia is not definitively explained. She may just have a viral process going on, but with her oxygen dependence, plan at this time will be admission to the hospital for a day for observation to make sure that she is stable to improving. Blood and urine cultures are pending. In the absence of fever, elevated white blood cell count, or obvious signs of pneumonia on imaging, for now holding off on antibiotics. Vital Signs Vital signs: Initial Vital Signs Temperature 98.0 F 01/13/23 12:17 Temperature Source Temporal Artery Scan 01/13/23 12:17 Pulse Rate 120 H 01/13/23 12:17 Respiratory Rate 24 01/13/23 12:17 Blood Pressure 126/51 L 01/13/23 12:17 Blood Pressure Mean 76 01/13/23 12:17 Blood Pressure Position Supine 01/13/23 12:17 Pulse Oximetry 90 01/13/23 12:17 Oxygen Delivery Method Room Air 01/13/23 12:17 Vital Signs Temperature 98.0 F 01/13/23 12:17 Pulse Rate 120 H 01/13/23 12:17 Respiratory Rate 24 01/13/23 12:17 Blood Pressure 126/51 L 01/13/23 12:17 Pulse Oximetry 90 01/13/23 12:17 Oxygen Delivery Method Room Air 01/13/23 12:17 Temperature 98.0 F 01/13/23 12:17 Pulse Rate 109 H 01/13/23 15:30 Respiratory Rate 24 01/13/23 12:17 Blood Pressure 139/57 L 01/13/23 13:02 Pulse Oximetry 99 01/13/23 15:30 Oxygen Delivery Method Nasal Cannula 01/13/23 15:30 Oxygen Flow Rate 1 01/13/23 15:30 Medical Decision Making Lab Data Labs: Lab Results 01/13/23 01/13/23 01/13/23 Range/Units 12:20 12:21 12:30 WBC (4.50-11.00) K/uL RBC (4.00-5.20) m/uL Hgb (12.0-16.0) gm/dL Hct (33.0-51.0) % MCV (80-100) fL MCH (26-34) pg MCHC (32-36) gm/dL RDW Coeff of Lynette (11.5-15.5) % Plt Count (140-440) K/uL Neut % (Auto) (42.0-72.0) % Lymph % (Auto) (20-44) % [place] % (Auto) (0.0-11.0) % Eos % (Auto) (0.0-7.0) % Baso % (Auto) (0.0-3.0) % Neut # (Auto) (1.7-7.0) K/uL Lymph # (Auto) (0.90-2.90) K/uL [place] # (Auto) (0.00-0.90) K/UL Eos # (Auto) (0.00-0.50) K/uL Baso # (Auto) (0.00-0.30) K/uL D-Dimer Quant (PE/DVT) (0.00-0.50) ug/ml Sodium (135-149) mmol/L Potassium (3.6-5.1) mmol/L Chloride (96-114) mmol/L Carbon Dioxide (20-32) mmol/L BUN (7-30) mg/dL Creatinine (0.5-1.5) mg/dL Estimated GFR ml/min Glucose (60-115) mg/dL Lactate (0.5-1.9) mmol/L Calcium (8.4-10.6) mg/dL Total Bilirubin (0.1-1.5) mg/dL Direct Bilirubin (0.0-0.5) mg/dL AST (12-35) U/L ALT (4-35) U/L Alkaline Phosphatase (40-150) U/L C-Reactive Protein (0.5-1.0) mg/dL NT-Pro-B Natriuret Pep pg/mL Total Protein (6.0-8.3) g/dL Albumin (3.3-5.0) g/dL Urine Color Yellow (Yellow) Urine Appearance Cloudy A (Clear) Urine pH >= 9.0 H (5.0-8.5) Ur Specific [place] 1.015 (1.000-1.030) Urine Protein 3+ A (Negative) Urine Glucose (UA) Negative (Negative) Urine Ketones Negative (Negative) Urine Blood 2+ A (Negative) Urine Nitrite Positive A (Negative) Urine Bilirubin Negative (Negative) Urine Urobilinogen 1.0 (0.2-1.0) Ur Leukocyte Esterase 3+ A (Negative) Urine RBC 2-5 A (0-2) Urine WBC 10-25 A (0-5) Ur Squamous Epith Cells Few (None-Few) Triple Phos Crystals Moderate A (None) Urine Bacteria Moderate A (None) Fine Granular Casts Few A (None) SARS-CoV-2 (PCR) Cancelled Negative SARS-CoV-2 Influenza Type A (PCR) Negative PCR FLU A (Negative) Influenza Type B (PCR) Negative PCR FLU B (Negative) POC Troponin I (0.01-0.04) ng/ml 01/13/23 Range/Units 12:40 WBC 4.50 (4.50-11.00) K/uL RBC 4.57 (4.00-5.20) m/uL Hgb 11.6 L (12.0-16.0) gm/dL Hct 38.9 (33.0-51.0) % MCV 85 (80-100) fL MCH 25 L (26-34) pg MCHC 30 L (32-36) gm/dL RDW Coeff of Lynette 16.2 H (11.5-15.5) % Plt Count 402 (140-440) K/uL Neut % (Auto) 30.9 L (42.0-72.0) % Lymph % (Auto) 32.0 (20-44) % [place] % (Auto) 30.7 H (0.0-11.0) % Eos % (Auto) 4.4 (0.0-7.0) % Baso % (Auto) 1.6 (0.0-3.0) % Neut # (Auto) 1.40 L (1.7-7.0) K/uL Lymph # (Auto) 1.44 (0.90-2.90) K/uL [place] # (Auto) 1.40 H (0.00-0.90) K/UL Eos # (Auto) 0.20 (0.00-0.50) K/uL Baso # (Auto) 0.07 (0.00-0.30) K/uL D-Dimer Quant (PE/DVT) 1.17 H (0.00-0.50) ug/ml Sodium 134 L (135-149) mmol/L Potassium 3.8 (3.6-5.1) mmol/L Chloride 97 (96-114) mmol/L Carbon Dioxide 36 H (20-32) mmol/L BUN 26 (7-30) mg/dL Creatinine 0.3 L (0.5-1.5) mg/dL Estimated GFR 110 ml/min Glucose 107 (60-115) mg/dL Lactate 1.1 (0.5-1.9) mmol/L Calcium 8.7 (8.4-10.6) mg/dL Total Bilirubin 0.8 (0.1-1.5) mg/dL Direct Bilirubin 0.4 (0.0-0.5) mg/dL AST 70 H (12-35) U/L ALT 134 H (4-35) U/L Alkaline Phosphatase 251 H (40-150) U/L C-Reactive Protein 7.9 H (0.5-1.0) mg/dL NT-Pro-B Natriuret Pep 1160 pg/mL Total Protein 6.0 (6.0-8.3) g/dL Albumin 3.4 (3.3-5.0) g/dL Urine Color (Yellow) Urine Appearance (Clear) Urine pH (5.0-8.5) Ur Specific [place] (1.000-1.030) Urine Protein (Negative) Urine Glucose (UA) (Negative) Urine Ketones (Negative) Urine Blood (Negative) Urine Nitrite (Negative) Urine Bilirubin (Negative) Urine Urobilinogen (0.2-1.0) Ur Leukocyte Esterase (Negative) Urine RBC (0-2) Urine WBC (0-5) Ur Squamous Epith Cells (None-Few) Triple Phos Crystals (None) Urine Bacteria (None) Fine Granular Casts (None) SARS-CoV-2 (PCR) Influenza Type A (PCR) (Negative) Influenza Type B (PCR) (Negative) POC Troponin I 0.03 (0.01-0.04) ng/ml Discharge Plan Discharge Patient Disposition: Admitted As Inpatient
[2023-01-13] MEDS: 0.9 % SODIUM CHLORIDE 1000 ml 1,000 ML IV (12:45)
[2023-01-13 12:56] LABS: Lactate* 1.1 mmol/L (0.5-1.9)
[2023-01-13 12:58] LABS: Basophils Absolute Auto 0.07 K/uL (0.00-0.30); Basophils Percent Auto 1.6 % (0.0-3.0); Eosinophils Percent Auto 4.4 % (0.0-7.0); Hematocrit 38.9 % (33.0-51.0); Hemoglobin* 11.6 gm/dL (12.0-16.0); Immature Granulocytes Abs Auto 0.02 K/uL (0.00-0.30); Immature Granulocytes Pct Auto 0.4 %; Lymphocytes Absolute Auto 1.44 K/uL (0.90-2.90); Mean Corpuscular HGB Conc 30 gm/dL (32-36); Mean Corpuscular Hemoglobin 25 pg (26-34); Mean Corpuscular Volume 85 fL (80-100); Monocytes Percent Auto 30.7 % (0.0-11.0); Neutrophils Percent Auto 30.9 % (42.0-72.0); Platelet Count* 402 K/uL (140-440); RDW Coefficient of Variation % 16.2 % (11.5-15.5); Red Blood Count 4.57 m/uL (4.00-5.20)
[2023-01-13 12:59] LABS: Appearance Urine Cloudy (Clear); Bilirubin Urine Negative (Negative); Blood Urine 2+ (Negative); Color Urine Yellow (Yellow); Glucose Urine Negative (Negative); Ketones Urine Negative (Negative); Leukocyte Esterase Urine 3+ (Negative); Nitrite Urine Positive (Negative); Protein Urine 3+ (Negative); Specific Gravity Urine 1.015 (1.000-1.030)
[2023-01-13 12:59] LABS: Slide Review Reflex No
[2023-01-13 13:03] LABS: pH Urine >= 9.0 (5.0-8.5)
[2023-01-13 13:04] LABS: Troponin, Point-of-Care* 0.03 ng/ml (0.01-0.04)
[2023-01-13 13:11] LABS: Albumin* 3.4 g/dL (3.3-5.0); Chloride* 97 mmol/L (96-114); Sodium* 134 mmol/L (135-149)
[2023-01-13 13:12] LABS: Potassium* 3.8 mmol/L (3.6-5.1)
[2023-01-13 13:13] LABS: Bacteria Urine Moderate; Fine Granular Casts Urine Few; Squamous Epithelial Cell Urine Few (None-Few); Triple Phosphate Crystal Urine Moderate
[2023-01-13 13:13] LABS: Creatinine* 0.3 mg/dL (0.5-1.5); Estimated Glomerular Filt Rate 110 ml/min
[2023-01-13 13:14] LABS: Alanine Aminotransferase* 134 U/L (4-35); Alkaline Phosphatase* 251 U/L (40-150); Aspartate Amino Transferase* 70 U/L (12-35); Bilirubin Direct* 0.4 mg/dL (0.0-0.5); Bilirubin Total* 0.8 mg/dL (0.1-1.5); Blood Urea Nitrogen* 26 mg/dL (7-30); Carbon Dioxide* 36 mmol/L (20-32); D Dimer Quantitative* 1.17 ug/ml (0.00-0.50)
[2023-01-13 13:15] LABS: Calcium* 8.7 mg/dL (8.4-10.6); Glucose* 107 mg/dL (60-115)
[2023-01-13 13:17] LABS: C Reactive Protein* 7.9 mg/dL (0.5-1.0)
--- NOTE | 2023-01-13 13:18 | CRLHL7_ITS ---
For Patients: As a result of the 21st Century Cures Act, medical imaging exams and procedure reports are released immediately into your electronic medical record. You may view this report before your referring provider. If you have questions, please contact your health care provider. INDICATION: Dyspnea and hypoxia. COMPARISON: No prior transaxial studies for comparison TECHNIQUE: : CT examination of the chest was performed with the uneventful intravenous administration of 95 cc of Isovue 370 while thin axial sections were obtained from above the apices of the lungs to the lung bases. Please note that all CT scans at this facility use dose modulation, iterative reconstruction, and/or weight-based dosing when appropriate to reduce radiation dose to as low as reasonably achievable. FINDINGS: : HEART and MEDIASTINUM: The heart size is normal. There is no mediastinal or hilar adenopathy or mass. There is no pericardial effusion. PULMONARY ARTERIAL CIRCULATION: There are limitations due to streak artifact from orthopedic hardware and due to motion. However, no pulmonary emboli are identified on this exam. LUNGS: Patchy dependent change consistent with minimal atelectasis. Mal. PLEURAL SPACES: There is no pleural effusion, pneumothorax or pleural based mass. VISUALIZED UPPER ABDOMEN: Hepatic steatosis. Otherwise, the limited visualized upper abdominal structures appear normal. OSSEOUS STRUCTURES: Demineralization, degenerative changes, postsurgical changes and scoliosis. TUBES and LINES: None. IMPRESSION: There are some technical limitations but there is no indication of acute pulmonary embolus. Patchy areas of atelectasis. Please note that all CT scans at this facility use dose modulation, iterative reconstruction, and/or weight-based dosing when appropriate to reduce radiation dose to as low as reasonably achievable. Dictated by Tesfaye Allen MD @ 01/13/2023 3:08:28 PM (Electronically Signed)
[2023-01-13 13:24] LABS: NT Pro B Type NatriureticPept* 1160 pg/mL
[2023-01-13 13:50] LABS: SARS PCR* Negative SARS-CoV-2 (Negative)
[2023-01-13 13:54] LABS: PCR FLU A Negative PCR FLU A (Negative); PCR FLU B Negative PCR FLU B (Negative)
[2023-01-13] MEDS: IPRAT-ALBUT 0.5-2.5 MG/3 ML NEB 1 NEB IH (14:11)
--- NOTE | 2023-01-13 14:23 | ED.NURSE ---
Per imaging staff, pt's IV in L AC blew during CT w/contrast. Another RN started 2nd IV site in pt's R forearm with the scan was completed using. This IV also blew at the end of the scan. IV in L AC was removed prior to pt returning to room. IV in pt's R forearm was removed by singer songwriter, catheter intact. Pt's L AC site has mild pink blistering measuring approx [id number]. Pt's R forearm site has severe raised pink/red blistering measuring approx [id number]. MD aware and examined sites. Gauze applied to R forearm site and ice packs applied to both sites.
--- NOTE | 2023-01-13 14:27 | ED.NURSE ---
Pt trialed on RA after neb. O2 sat down to 87% on RA. 2L O2 NC reapplied.
[2023-01-13] MEDS: OXYCODONE 5 MG TABLET PO (15:19)
--- NOTE | 2023-01-13 15:20 | ED.NURSE ---
MD Kline titrated pt O2 down to 1L NC.
--- NOTE | 2023-01-13 15:21 | ED.NURSE ---
Pt repositioned to L lateral with pillow supporting her back.
--- NOTE | 2023-01-13 15:41 | ED.NURSE ---
Report called to M/S RN.
[2023-01-13] MEDS: AZITHROMYCIN 250 MG TABLET 500 MG PO (17:30)
[2023-01-13] MEDS: predniSONE 10 MG TABLET PO (17:34)
[2023-01-13 17:40] LABS: Procalcitonin* 0.09 ng/mL (<0.50)
--- NOTE | 2023-01-13 18:53 | PC.NURSE ---
Pt admit around 1600 from ED, pt alert and oriented, pleasant and cooperative. Chronic paraplegia, pt uses her arms and hands but reduced strength d/t painful shoulders, especially R shoulder per pt. States 4/10 chronic pain to coccyx from ongoing wound and 4/10 pain to bilateral arms where pt has blisters r/t IVs infiltrating in ED, ice packs applied. Pt had PRN Oxycodone in ED prior to admission and pt states improvement. Vitals stable, on 1L of NC sating mid 90s%. Pt require Ax2 w/ turn and repo. Pillow placed under R hip to offset weight from wound, mepilex changed to R hip, packing remains as need packing from wound care clinic tomorrow, charge manager aware. Pt's daughter at bedside. Pt tolerating regular diet, eating 75% of dinner. On PO abx. Chronic urinary catheter in place, 200ml output since admit from ED, continued cloudy urine, per cares completed and brief changed PRN. Pt has call light within reach and uses appropriately.
--- NOTE | 2023-01-13 19:28 | P.IMHP_ITS ---
Hospitalist- H&P: HPI History of Present Illness Date Seen: 01/13/23 Chief complaint: Weak Narrative: Prerna Major is a 77 year old female with quadriplegia admitted through the emergency department with 2 day history of cough dyspnea and fever. She is currently a resident of 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 She has had some sore throat associated with this. She has also had some generalized achiness and in the last day a poor appetite. No vomiting. No abdominal pain. She has a chronic indwelling Cristobal catheter. She was hospitalized here in October for debridement of that ulcer and treatment of a local cellulitis. Subsequently her wound has continued to improve. Review of Systems Narrative: She reports that her health status is been relatively stable and her ulcer has been improving over the last 2 months until the last 2 days of illness. She does have a history of snoring but has never been diagnosed with sleep apnea [facility] Medical History (Updated 01/13/23 @ 20:03 by Roshan Kline MD) Acute on chronic anemia ?D64.9 - Anemia, unspecified (ICD-10) Anemia ?D64.9 - Anemia, unspecified (ICD-10) Chronic pain ?G89.29 - Other chronic pain (ICD-10) Chronic steroid use Chronic, continuous use of opioids ?F11.90 - Opioid use, unspecified, uncomplicated (ICD-10) Diarrhea ?R19.7 - Diarrhea, unspecified (ICD-10) Cristobal catheter in place ?Z97.8 - Presence of other specified devices (ICD-10) History of methicillin resistant Staphylococcus aureus infection ?Z86.14 - Personal history of Methicillin resistant Staphylococcus aureus infection (ICD-10) HTN (hypertension) ?I10 - Essential (primary) hypertension (ICD-10) Neurogenic bladder ?N31.9 - Neuromuscular dysfunction of bladder, unspecified (ICD-10) Osteoporosis ?M81.0 - Age-related osteoporosis without current pathological fracture (ICD- 10) Paraplegia ?G82.20 - Paraplegia, unspecified (ICD-10) Recurrent urinary tract infection ?N39.0 - Urinary tract infection, site not specified (ICD-10) Rheumatoid arthritis ?M06.9 - Rheumatoid arthritis, unspecified (ICD-10) Septic shock ?A41.9 - Sepsis, unspecified organism (ICD-10) ?R65.21 - Severe sepsis with septic shock (ICD-10) Sleep apnea ?G47.30 - Sleep apnea, unspecified (ICD-10) 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 where she is getting wound care and rehabilitation related to her right buttock/ischial ulcer. Code status is full. She does not smoke or drink alcohol Highest level of school completed/degree received: decline to answer Smoking Status: Never smoker Do you use any of these nicotine containing products: None and E-Cigarettes How often do you have a drink containing alcohol: never How often do you have six or more drinks on one occasion: Never AUDIT-C Alcohol total score: 0 Non-prescribed substance use: denies use Caffeine: No service: No Meds Home Medications and Allergies Home Medications Medication Instructions Recorded Confirmed Type lactobacillus combination no.4 3 3,000 mmu cells PO DAILY 07/10/22 01/13/23 History billion cell capsule (Probiotic) multivitamin (Daily Multi-Vitamin 1 tab PO DAILY 07/10/22 01/13/23 History tablet) furosemide 20 mg tablet 20 mg PO DAILY 10/30/22 01/13/23 History metoprolol succinate 50 mg 50 mg PO DAILY 10/30/22 01/13/23 History tablet,extended release 24 hr prednisone 5 mg tablet 10 mg PO DAILY 10/30/22 01/13/23 History acetaminophen 650 mg 1,300 mg PO BID 01/13/23 01/13/23 History tablet,extended release (8 Hour Pain Reliever) bisacodyl 10 mg rectal suppository 10 mg OH BID PRN 01/13/23 01/13/23 History (Gentle Laxative (bisacodyl)) nystatin 100,000 unit/gram topical 1 applic topical BID PRN 01/13/23 01/13/23 History powder oxycodone 5 mg tablet 2.5 mg PO Q4H PRN 01/13/23 01/13/23 History zinc sulfate 50 mg zinc (220 mg) 100 mg PO DAILY 01/13/23 01/13/23 History capsule (Orazinc) Allergies Allergy/AdvReac Type Severity Reaction Status Date / Time vancomycin Allergy Severe Hives Verified 01/13/23 13:51 piperacillin Allergy Intermediate Rash Verified 01/13/23 13:51 tazobactam Allergy Intermediate Rash Verified 01/13/23 13:51 Exam Narrative: Exam Narrative: She is alert and appears in no distress. She gives her own history. She is oriented to her circumstances. Head is normal. No trauma. Eyes normal. Oropharynx normal. Small airway. Neck is supple without mass or adenopathy. Respirations are clear to auscultation. No wheezing rales or rhonchi. Cardiovascular: S1, S2, regular tachycardia. No murmur gallop or rub. Abdomen: Bowel sounds active. Abdomen is soft without tenderness or mass. External genitalia normal. Slight intertriginous erythema noted. Cristobal catheter in place. Both arms have soft tissue swelling in the antecubital fossa from infiltration of IVs that occurred in the emergency department with IV contrast for CT scanning. Lower extremities with atrophy consistent with quadriplegia. Intact pulses. No rash. No skin breakdown. Flaccid. Upper extremities with minimal motion. Right buttock ischial ulcer is inspected it is significantly smaller. It is packed with a bluish purple packing and covered with a Mepilex type dressing. No significant surrounding erythema. Const: Vital Signs, click to edit/add: Vital Signs - 24 hr 01/13/23 12:17 01/13/23 12:30 01/13/23 12:30 Temperature 98.0 F Pulse Rate Pulse Rate [Pulse Oximeter] 120 H Pulse Rate [Right Pulse Oximeter] Respiratory Rate 24 Blood Pressure Blood Pressure [Le ft Arm] Blood Pressure [Le ft Upper Arm] 126/51 L Pulse Oximetry 90 97 97 Oxygen Delivery Me thod Room Air Nasal Cannula Oxygen Flow Rate 2 01/13/23 12:31 01/13/23 12:45 01/13/23 12:48 Temperature Pulse Rate 119 H 121 H 118 H Pulse Rate [Pulse Oximeter] Pulse Rate [Right Pulse Oximeter] Respiratory Rate Blood Pressure 123/83 Blood Pressure [Le ft Arm] Blood Pressure [Le ft Upper Arm] Pulse Oximetry 98 97 96 Oxygen Delivery Me thod Nasal Cannula Nasal Cannula Nasal Cannula Oxygen Flow Rate 2 2 2 01/13/23 12:49 01/13/23 13:00 01/13/23 13:02 Temperature Pulse Rate 117 H 120 H Pulse Rate [Pulse Oximeter] Pulse Rate [Right Pulse Oximeter] Respiratory Rate Blood Pressure 139/57 L Blood Pressure [Le ft Arm] Blood Pressure [Le ft Upper Arm] Pulse Oximetry 96 96 Oxygen Delivery Me thod Nasal Cannula Nasal Cannula Nasal Cannula Oxygen Flow Rate 2 2 2 01/13/23 13:03 01/13/23 14:07 01/13/23 14:15 Temperature Pulse Rate 120 H 106 H 106 H Pulse Rate [Pulse Oximeter] Pulse Rate [Right Pulse Oximeter] Respiratory Rate Blood Pressure Blood Pressure [Le ft Arm] Blood Pressure [Le ft Upper Arm] Pulse Oximetry 95 98 98 Oxygen Delivery Me thod Nasal Cannula Nasal Cannula Nasal Cannula Oxygen Flow Rate 2 2 2 01/13/23 14:30 01/13/23 14:45 01/13/23 15:00 Temperature Pulse Rate 104 H 106 H 112 H Pulse Rate [Pulse Oximeter] Pulse Rate [Right Pulse Oximeter] Respiratory Rate Blood Pressure Blood Pressure [Le ft Arm] Blood Pressure [Le ft Upper Arm] Pulse Oximetry 98 99 98 Oxygen Delivery Me thod Nasal Cannula Nasal Cannula Nasal Cannula Oxygen Flow Rate 2 2 2 01/13/23 15:15 01/13/23 15:30 01/13/23 16:10 Temperature 98.5 F Pulse Rate 108 H 109 H Pulse Rate [Pulse Oximeter] Pulse Rate [Right Pulse Oximeter] 96 Respiratory Rate 18 Blood Pressure Blood Pressure [Le ft Arm] 112/51 L Blood Pressure [Le ft Upper Arm] Pulse Oximetry 98 99 94 Oxygen Delivery Me thod Nasal Cannula Nasal Cannula Nasal Cannula Oxygen Flow Rate 2 1 1 01/13/23 16:10 Temperature Pulse Rate Pulse Rate [Pulse Oximeter] Pulse Rate [Right Pulse Oximeter] Respiratory Rate 20 Blood Pressure Blood Pressure [Le ft Arm] Blood Pressure [Le ft Upper Arm] Pulse Oximetry 94 Oxygen Delivery Me thod Nasal Cannula Oxygen Flow Rate 1 Hospitalist - H&P: Result Labs Labs: Short CBC 01/13/23 Range/Units 12:40 WBC 4.50 (4.50-11.00) K/uL Hgb 11.6 L (12.0-16.0) gm/dL Hct 38.9 (33.0-51.0) % Plt Count 402 (140-440) K/uL BMP 01/13/23 12:40 Sodium 134 L Potassium 3.8 Chloride 97 Carbon Dioxide 36 H BUN 26 Creatinine 0.3 L Glucose 107 Calcium 8.7 Liver Function 01/13/23 Range/Units 12:40 Total Bilirubin 0.8 (0.1-1.5) mg/dL Direct Bilirubin 0.4 (0.0-0.5) mg/dL AST 70 H (12-35) U/L ALT 134 H (4-35) U/L Alkaline Phosphatase 251 H (40-150) U/L Albumin 3.4 (3.3-5.0) g/dL Urine 01/13/23 Range/Units 12:30 Urine Color Yellow (Yellow) Urine Appearance Cloudy A (Clear) Urine pH >= 9.0 H (5.0-8.5) Ur Specific [place] 1.015 (1.000-1.030) Urine Protein 3+ A (Negative) Urine Glucose (UA) Negative (Negative) Assessment and Plan Assessment and plan (1) Hypoxia: Problem comment: Likely due to acute respiratory infection. Complicated by undiagnosed and untreated sleep apnea and chronic opioid use and possibly quadriplegia Status: Acute (2) Respiratory infection: Problem comment: Due to hypoxia, cough, fever and tachycardia will initiate antibiotic therapy with a azithromycin. Status: Acute (3) Chronic pain: Problem comment: Continue gabapentin and oxycodone. Avoid NSAIDs due to recent pre-pyloric ulcer with bleeding Status: Acute (4) Sleep apnea: Problem comment: Clinically suspected. No previous evaluation or sleep study. Possibly contributing to hypoxia Status: Suspected (5) Chronic, continuous use of opioids: Status: Acute (6) 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, stage 4: Problem comment: Previously on chronic antibiotics. These were discontinued about 1 month ago. No evidence of wound infection at this time Status: Acute (7) Chronic steroid use: Problem comment: For rheumatoid arthritis. 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 Overall, the findings are similar to the prior studies. History of MRSA in wound previously. Current cultures growing group C strep. Had surgical debridement. Had prolonged treatment with oral antibiotics. Monitor clinically. Status: Acute (11) Cristobal catheter in place: Problem comment: Chronic Cristobal to help with healing ulcer and perineal hygiene. Status: Acute (12) Intravenous infiltration: Problem comment: Monitor for complications of antecubital IV infiltrations. Status: Acute Plan Admit to the hospital for ongoing evaluation management of presumed respiratory infection with hypoxia and fever and tachycardia. Anticipate return to [address] [place] [address] when clinically improving. Total time spent today is 75 minutes, 40 minutes in coordination of care and discussing with other providers and patient and daughter ongoing evaluation management of above problems.
[2023-01-13] MEDS: ACETAMINOPHEN 650 MG TABLET ER 1300 MG PO (21:49)
[2023-01-13] MEDS: GABAPENTIN 300 MG CAPSULE PO (21:49)
[2023-01-13] MEDS: OMEPRAZOLE 20 MG CAPSULE DR PO (21:49)
[2023-01-13] MEDS: SODIUM CHLORIDE 0.9 % (FLUSH) 10 ML SYRINGE 5 ML IVF (21:50)
[2023-01-13] MEDS: OXYCODONE 5 MG TABLET 2.5 MG PO (22:05)
[2023-01-14] VITALS: BP 128/58; PULSE 80; RESP 18; RESP 20; TEMP 36.4; O2SAT 95
[2023-01-14 03:00] VITALS: BP 127/65; PULSE 93; RESP 18; TEMP 36.6; O2SAT 98
[2023-01-14] MEDS: OXYCODONE 5 MG TABLET 2.5 MG PO ×2 (04:28→09:21)
--- NOTE | 2023-01-14 05:51 | PC.NURSE ---
Shift note: Turn and repo in bed per pt request. Pain, wound and right arm, treated per eMAR PRN with relief so that pt is able to rest. Pt is afebrile, Cristobal is intact. Right arm gently wrapped with MEGHAN wrap to prevent the blister from opening, ice applied as well, pt tolerating well.
[2023-01-14 08:00] VITALS: BP 154/82; PULSE 120; RESP 20; TEMP 37.4; O2SAT 96
[2023-01-14] MEDS: FUROSEMIDE 20 MG TABLET PO (08:17)
[2023-01-14] MEDS: LACTOBACILLUS ACIDOPHILUS 1 TABLET 1 TAB PO (09:16)
[2023-01-14] MEDS: MULTIVITAMIN/MINERALS 1 TABLET 1 TAB PO (09:17)
[2023-01-14] MEDS: OMEPRAZOLE 20 MG CAPSULE DR PO ×2 (09:17→20:34)
[2023-01-14] MEDS: METOPROLOL SUCCINATE (XL) 50 MG TAB PO (09:17)
[2023-01-14] MEDS: GABAPENTIN 300 MG CAPSULE PO ×3 (09:17→20:34)
[2023-01-14] MEDS: predniSONE 10 MG TABLET PO (09:17)
[2023-01-14] MEDS: ACETAMINOPHEN 650 MG TABLET ER 1300 MG PO ×2 (09:18→20:34)
[2023-01-14] MEDS: SODIUM CHLORIDE 0.9 % (FLUSH) 10 ML SYRINGE 5 ML IVF ×2 (09:33→20:35)
[2023-01-14] MEDS: FUROSEMIDE 10 MG/ML inj 20 MG IVP (10:08)
[2023-01-14] MEDS: POTASSIUM CHLORIDE 10 MEQ CAPSULE ER 20 MEQ PO (10:08)
[2023-01-14] MEDS: METHYLPREDNISOLONE SOD SUCC 40 MG/ML IVP (10:09)
[2023-01-14 10:26] VITALS: BMI 28.5
[2023-01-14 11:00] VITALS: BP 138/94; PULSE 126; RESP 18; TEMP 37.5; O2SAT 95
--- NOTE | 2023-01-14 11:09 | P.IMPN_ITS ---
Progress Note: A&P Assessment and plan (1) Respiratory infection: Problem details: Due to hypoxia, cough, fever and tachycardia will initiate antibiotic therapy with a azithromycin. Status: Acute Assessment and Plan: 01/14/23: ?Acute Bronchitis; Add one time dose of solumedrol; tessalon; robitussin; wean oxygen as tolerated (2) Hypoxia: Problem details: Likely due to acute respiratory infection. Complicated by undiagnosed and untreated sleep apnea and chronic opioid use and possibly quadriplegia 01/14/23: BNP elevated, +SOB, hypoxia; +elevated LFTS (?hepatic congestion) ? underlying CHF Status: Acute Assessment and Plan: Plan: Echo; IV lasix X1 + potassium; reassess response to diuretics (3) Paraplegia: Status: Acute (4) Chronic steroid use: Problem details: For rheumatoid arthritis. Status: Acute Assessment and Plan: 01/14/23: Giving IV solumedrol X1 today; see above (5) Rheumatoid arthritis: Problem details: on daily prednisone Status: Acute (6) Chronic pain: Problem details: Continue gabapentin and oxycodone. Avoid NSAIDs due to recent pre-pyloric ulcer with bleeding Status: Acute (7) 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, stage 4: Problem details: Previously on chronic antibiotics. These were discontinued about 1 month ago. No evidence of wound infection at this time Status: Acute (8) Sleep apnea: Problem details: Clinically suspected. No previous evaluation or sleep study. Possibly contributing to hypoxia Status: Suspected Assessment and Plan: outpatient sleep study (9) Abnormal LFTs: Problem details: no abdominal pain; s/p cholecystectomy; wondering if hepatic congestion from CHF Status: Acute Assessment and Plan: trend LFTs, IV lasix; echo, RUQ US, hepatitis panel Subjective Date Seen: 01/14/23 Exam Narrative: Exam Narrative: Gen: no acute distress; coughing during exam HEENT: NCAT EOMI mmm Neck: Supple CV: tachycardic normal s1 s2 Lungs: CTAB Abd: Soft,nt, nd Neuro: Alert, oriented, CN grossly intact; nonfocal screening?exam Psych: appropriate affect MSK: age appropriate muscle mass Skin; Warm, dry no rash on fac Const: Vital Signs, click to edit/add: Vital Signs - 24 hr 01/13/23 12:17 01/13/23 12:30 01/13/23 12:30 Temperature 98.0 F Pulse Rate Pulse Rate [Pulse Oximeter] 120 H Pulse Rate [Right Pulse Oximeter] Respiratory Rate 24 Blood Pressure Blood Pressure [Le ft Arm] Blood Pressure [Le ft Upper Arm] 126/51 L Pulse Oximetry 90 97 97 Oxygen Delivery Me thod Room Air Nasal Cannula Oxygen Flow Rate 2 01/13/23 12:31 01/13/23 12:45 01/13/23 12:48 Temperature Pulse Rate 119 H 121 H 118 H Pulse Rate [Pulse Oximeter] Pulse Rate [Right Pulse Oximeter] Respiratory Rate Blood Pressure 123/83 Blood Pressure [Le ft Arm] Blood Pressure [Le ft Upper Arm] Pulse Oximetry 98 97 96 Oxygen Delivery Me thod Nasal Cannula Nasal Cannula Nasal Cannula Oxygen Flow Rate 2 2 2 01/13/23 12:49 01/13/23 13:00 01/13/23 13:02 Temperature Pulse Rate 117 H 120 H Pulse Rate [Pulse Oximeter] Pulse Rate [Right Pulse Oximeter] Respiratory Rate Blood Pressure 139/57 L Blood Pressure [Le ft Arm] Blood Pressure [Le ft Upper Arm] Pulse Oximetry 96 96 Oxygen Delivery Me thod Nasal Cannula Nasal Cannula Nasal Cannula Oxygen Flow Rate 2 2 2 01/13/23 13:03 01/13/23 14:07 01/13/23 14:15 Temperature Pulse Rate 120 H 106 H 106 H Pulse Rate [Pulse Oximeter] Pulse Rate [Right Pulse Oximeter] Respiratory Rate Blood Pressure Blood Pressure [Le ft Arm] Blood Pressure [Le ft Upper Arm] Pulse Oximetry 95 98 98 Oxygen Delivery Me thod Nasal Cannula Nasal Cannula Nasal Cannula Oxygen Flow Rate 2 2 2 01/13/23 14:30 01/13/23 14:45 01/13/23 15:00 Temperature Pulse Rate 104 H 106 H 112 H Pulse Rate [Pulse Oximeter] Pulse Rate [Right Pulse Oximeter] Respiratory Rate Blood Pressure Blood Pressure [Le ft Arm] Blood Pressure [Le ft Upper Arm] Pulse Oximetry 98 99 98 Oxygen Delivery Me thod Nasal Cannula Nasal Cannula Nasal Cannula Oxygen Flow Rate 2 2 2 01/13/23 15:15 01/13/23 15:30 01/13/23 16:10 Temperature 98.5 F Pulse Rate 108 H 109 H Pulse Rate [Pulse Oximeter] Pulse Rate [Right Pulse Oximeter] 96 Respiratory Rate 18 Blood Pressure Blood Pressure [Le ft Arm] 112/51 L Blood Pressure [Le ft Upper Arm] Pulse Oximetry 98 99 94 Oxygen Delivery Me thod Nasal Cannula Nasal Cannula Nasal Cannula Oxygen Flow Rate 2 1 1 01/13/23 16:10 01/13/23 19:00 01/13/23 23:00 Temperature 98.5 F Pulse Rate Pulse Rate [Pulse Oximeter] Pulse Rate [Right Pulse Oximeter] 87 Respiratory Rate 20 20 18 Blood Pressure Blood Pressure [Le ft Arm] 107/66 Blood Pressure [Le ft Upper Arm] Pulse Oximetry 94 94 96 Oxygen Delivery Me thod Nasal Cannula Nasal Cannula Nasal Cannula Oxygen Flow Rate 1 1 1 01/13/23 23:00 01/14/23 03:00 01/14/23 08:00 Temperature 98 F 99.4 F Pulse Rate Pulse Rate [Pulse Oximeter] Pulse Rate [Right Pulse Oximeter] 93 120 H Respiratory Rate 18 18 20 Blood Pressure Blood Pressure [Le ft Arm] 127/65 154/82 H Blood Pressure [Le ft Upper Arm] Pulse Oximetry 98 98 96 Oxygen Delivery Me thod Nasal Cannula Nasal Cannula Nasal Cannula Oxygen Flow Rate 1 1 1 01/14/23 08:00 01/14/23 08:00 Temperature Pulse Rate Pulse Rate [Pulse Oximeter] Pulse Rate [Right Pulse Oximeter] 120 H Respiratory Rate 20 Blood Pressure Blood Pressure [Le ft Arm] Blood Pressure [Le ft Upper Arm] Pulse Oximetry 96 Oxygen Delivery Me thod Nasal Cannula Oxygen Flow Rate 1 Labs Labs: Laboratory Results - last 24 hr 01/13/23 01/13/23 01/13/23 12:20 12:21 12:30 WBC RBC Hgb Hct MCV MCH MCHC RDW Coeff of Lynette Plt Count Neut % (Auto) Lymph % (Auto) [place] % (Auto) Eos % (Auto) Baso % (Auto) Neut # (Auto) Lymph # (Auto) [place] # (Auto) Eos # (Auto) Baso # (Auto) D-Dimer Quant (PE/DVT) Sodium Potassium Chloride Carbon Dioxide BUN Creatinine Estimated GFR Glucose Lactate Calcium Total Bilirubin Direct Bilirubin AST ALT Alkaline Phosphatase C-Reactive Protein NT-Pro-B Natriuret Pep Total Protein Albumin Procalcitonin Urine Color Yellow Urine Appearance Cloudy A Urine pH >= 9.0 H Ur Specific [place] 1.015 Urine Protein 3+ A Urine Glucose (UA) Negative Urine Ketones Negative Urine Blood 2+ A Urine Nitrite Positive A Urine Bilirubin Negative Urine Urobilinogen 1.0 Ur Leukocyte Esterase 3+ A Urine RBC 2-5 A Urine WBC 10-25 A Ur Squamous Epith Cells Few Triple Phos Crystals Moderate A Urine Bacteria Moderate A Fine Granular Casts Few A SARS-CoV-2 (PCR) Cancelled Negative SARS-CoV-2 Influenza Type A (PCR) Negative PCR FLU A Influenza Type B (PCR) Negative PCR FLU B POC Troponin I 01/13/23 12:40 WBC 4.50 RBC 4.57 Hgb 11.6 L Hct 38.9 MCV 85 MCH 25 L MCHC 30 L RDW Coeff of Lynette 16.2 H Plt Count 402 Neut % (Auto) 30.9 L Lymph % (Auto) 32.0 [place] % (Auto) 30.7 H Eos % (Auto) 4.4 Baso % (Auto) 1.6 Neut # (Auto) 1.40 L Lymph # (Auto) 1.44 [place] # (Auto) 1.40 H Eos # (Auto) 0.20 Baso # (Auto) 0.07 D-Dimer Quant (PE/DVT) 1.17 H Sodium 134 L Potassium 3.8 Chloride 97 Carbon Dioxide 36 H BUN 26 Creatinine 0.3 L Estimated GFR 110 Glucose 107 Lactate 1.1 Calcium 8.7 Total Bilirubin 0.8 Direct Bilirubin 0.4 AST 70 H ALT 134 H Alkaline Phosphatase 251 H C-Reactive Protein 7.9 H NT-Pro-B Natriuret Pep 1160 Total Protein 6.0 Albumin 3.4 Procalcitonin 0.09 Urine Color Urine Appearance Urine pH Ur Specific [place] Urine Protein Urine Glucose (UA) Urine Ketones Urine Blood Urine Nitrite Urine Bilirubin Urine Urobilinogen Ur Leukocyte Esterase Urine RBC Urine WBC Ur Squamous Epith Cells Triple Phos Crystals Urine Bacteria Fine Granular Casts SARS-CoV-2 (PCR) Influenza Type A (PCR) Influenza Type B (PCR) POC Troponin I 0.03
[2023-01-14] MEDS: cefTRIAXone 2 GM in 0.9 % SODIUM CHLORIDE Mini-bag 100 ML IVPB (11:50)
[2023-01-14] MEDS: 0.9 % SODIUM CHLORIDE 250 ml 250 ML IV (11:50)
[2023-01-14 12:10] LABS: Lactate Sepsis w/Reflex* 1.5 mmol/L (0.5-1.9)
[2023-01-14 12:13] LABS: Basophils Percent Auto 1.8 % (0.0-3.0); Eosinophils Percent Auto 2.1 % (0.0-7.0); Hematocrit 37.3 % (33.0-51.0); Hemoglobin* 11.1 gm/dL (12.0-16.0); Immature Granulocytes Pct Auto 0.6 %; Lymphocytes Percent Auto 32.8 % (20-44); Mean Corpuscular HGB Conc 30 gm/dL (32-36); Mean Corpuscular Hemoglobin 25 pg (26-34); Mean Corpuscular Volume 85 fL (80-100); Neutrophils Percent Auto 38.7 % (42.0-72.0); Platelet Count* 390 K/uL (140-440); RDW Coefficient of Variation % 16.1 % (11.5-15.5); White Blood Count* 3.38 K/uL (4.50-11.00)
[2023-01-14 12:16] LABS: Slide Review Reflex No
[2023-01-14 12:28] LABS: Chloride* 97 mmol/L (96-114); Sodium* 132 mmol/L (135-149)
[2023-01-14 12:30] LABS: Creatinine* 0.4 mg/dL (0.5-1.5); Est. Creatinine Clearance* 34.38; Estimated Glomerular Filt Rate 103 ml/min
[2023-01-14 12:31] LABS: Blood Urea Nitrogen* 24 mg/dL (7-30); Carbon Dioxide* 32 mmol/L (20-32)
[2023-01-14 12:32] LABS: Calcium* 8.6 mg/dL (8.4-10.6); Glucose* 155 mg/dL (60-115)
[2023-01-14 12:46] LABS: C Reactive Protein* 13.2 mg/dL (0.5-1.0)
[2023-01-14] MEDS: BENZONATATE 100 MG CAPSULE PO ×2 (13:35→20:35)
[2023-01-14 15:30] VITALS: BP 123/52; PULSE 102; RESP 18; TEMP 37.3; O2SAT 93
--- NOTE | 2023-01-14 15:35 | PC.NURSE ---
End of shift: Patient A&O. turn q2 hours. HR elevated 120s in am. Scheduled medications given with minimal change in HR, MD updated. New orders given. HR low 100s. On 1/2 L of O2 with sats in the mid 90s. Attempted to wean o2 3 times without success. Sats dropped to mid 80s. Rated pain from 5-7/10. PRN medication given with relief. Dressing changed per orders. Pt tolerated well. Cristobal changed per MD, related to positive urine.
--- NOTE | 2023-01-14 16:00 | CRLHL7_ITS ---
For Patients: As a result of the Century Cures Act, medical imaging exams and procedure reports are released immediately into your electronic medical record. You may view this report before your referring provider. If you have questions, please contact your health care provider. INDICATION: Abnormal liver function tests TECHNIQUE: Ultrasound abdomen limited. Sonographic images of the right upper quadrant were obtained using garrido-scale and color Doppler images. COMPARISON: None FINDINGS: Liver: Limited sonographic windows. No focal lesions. Normal hepatic contour. No vascular distention seen. Patent portal vein. Gallbladder: Status post cholecystectomy. Right kidney: Normal in size. Normal echotexture and cortex. No masses, stones, or hydronephrosis. IMPRESSION: Unremarkable sonographic appearance of the liver. No focal lesions or vascular dilatation to suggest vascular congestion. Dictated by Rai Coe MD @ 01/14/2023 5:37:34 PM (Electronically Signed)
[2023-01-14] MEDS: AZITHROMYCIN 250 MG TABLET 500 MG PO (17:09)
--- NOTE | 2023-01-14 17:58 | PC.NURSE ---
Ok to resume regular diet per Dr. Kline after US.
[2023-01-14 19:16] VITALS: BP 123/60; PULSE 98; RESP 18; TEMP 36.7; O2SAT 94
--- NOTE | 2023-01-14 23:27 | PC.NURSE ---
Shift [id number]- Patient has wet sounding cough- prefers to keep her head upright, or she feels like she is choking from the congestion. She denies turn and repo offers this evening for that reason. Earlier, she is turned and repositioned with pillows for offloading. Cristobal patent and draining. Appetite intact. Remains on 0.5L O2 with saturations in low 90s%.
[2023-01-15] MEDS: GUAIF/CODEINE 200/20MG/10 ML SOLUTION PO ×3 (00:06→22:55)
[2023-01-15 03:10] VITALS: BP 108/53; PULSE 83; RESP 14; TEMP 36.6; O2SAT 97
--- NOTE | 2023-01-15 06:49 | PC.NURSE ---
Pt is alert and oriented x3. Afebrile.?Inspiratory and expiratory wheezes heard in upper respiratory and inspiratory and expiratory ronchi can be heard throughout lungs, pt 02 sats ranged between 93-96 on 0.5L nasal cannula, attempts have been made throughout the night to wean pt off oxygen but stats drop down to 83-85% . Pt has intermittent productive cough with clear sputum, managed with PRN medications. Pt?s right forearm dressing?is CDI.?Pt denies pain, chest pain,?and N/V. Pt?s delacruz catheter is patent and draining. Pt is tolerating a regular diet, and is turn and repo Q2H, pt has refused several times during the night stating ?she is comfortable.? Verbal?education was given, pt refused. ??
--- NOTE | 2023-01-15 07:43 | CRLHL7_ITS ---
For Patients: As a result of the Century Cures Act, medical imaging exams and procedure reports are released immediately into your electronic medical record. You may view this report before your referring provider. If you have questions, please contact your health care provider. INDICATION: Follow-up cough. COMPARISON: Chest x-ray 01/13/2023. TECHNIQUE: AP portable chest. FINDINGS: The cardiomediastinal silhouette and pulmonary vasculature are within normal limits. There is minimal linear atelectasis and/or scar in the right lung base. No pulmonary consolidation is identified. No pleural effusion or pneumothorax is seen. There are Bae rods superimposed over the thoracic and upper lumbar spine. There are degenerative changes within both shoulders. IMPRESSION: 1. No pulmonary consolidation. 2. Minimal linear atelectasis and/or scar in the right lung base. Dictated by Christian Simons MD @ 01/15/2023 8:20:14 AM (Electronically Signed)
[2023-01-15 07:48] LABS: Basophils Absolute Auto 0.03 K/uL (0.00-0.30); Basophils Percent Auto 0.6 % (0.0-3.0); Eosinophils Absolute Auto 0.01 K/uL (0.00-0.50); Eosinophils Percent Auto 0.2 % (0.0-7.0); Hematocrit 40.7 % (33.0-51.0); Immature Granulocytes Abs Auto 0.04 K/uL (0.00-0.30); Immature Granulocytes Pct Auto 0.7 %; Lymphocytes Percent Auto 35.3 % (20-44); Mean Corpuscular HGB Conc 30 gm/dL (32-36); Mean Corpuscular Hemoglobin 25 pg (26-34); Mean Corpuscular Volume 86 fL (80-100); Monocytes Percent Auto 34.3 % (0.0-11.0); Neutrophils Percent Auto 28.9 % (42.0-72.0); Platelet Count* 404 K/uL (140-440); Red Blood Count 4.74 m/uL (4.00-5.20); White Blood Count* 5.39 K/uL (4.50-11.00)
[2023-01-15 07:49] LABS: Slide Review Reflex No
--- NOTE | 2023-01-15 08:19 | PM.IMPN1 ---
Progress Note: A&P Assessment and plan (1) Respiratory infection: Problem details: - on Ceftriaxone and Azithromycin, home steroid dose, prn cough syrup and Tessalon Perles - may also have an element of allergic rhinitis; will add Flonase 4/5 - RT following - no acute changes on CXR 01/15 Status: Acute (2) Hypoxia: Problem details: - likely 2/2 acute respiratory infection, complicated by undiagnosed and untreated sleep apnea, chronic opioid use, possibly quadriplegia TTE 01/14/23: Final Impressions: 1. Technically limited exam. 2. Normal LV size, not well visualized wall thickness, hyperdynamic global systolic function with an estimated EF of > 75%. No hemodynamically significant intracavitary gradient. 3. The aortic valve is trileaflet and sclerotic, no stenosis and no regurgitation. 4. The mitral valve is sclerotic, trace mitral regurgitation. 5. Mitral stenosis with mildly increased mean gradient of 5.7 mmHg at a heart rate of 95. 6. Right ventricular cavity size is normal, global systolic RV function is normal. 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, stage 4: Problem details: - Previously on chronic antibiotics, no evidence of wound infection at this time Status: Acute (7) Sleep apnea: Problem details: - Clinically suspected, no previous evaluation or sleep study Status: Suspected (8) Abnormal LFTs: Problem details: - asymptomatic, s/p cholecystectomy, continue to follow (could not obtain sufficient blood this morning, will attempt again 01/16) Status: Acute (9) Bacteriuria: Problem details: - Proteus on culture, sensitive to Ceftriaxone - chronic indwelling delacruz Status: Acute Plan - continue treatments per above - Lovenox for ppx - back to [facility] when medically stable, possibly as early as tomorrow Subjective Date Seen: 01/15/23 Interval history: No acute events overnight. Mary continues to have coughing paroxysms, requiring low-dose supplemental oxygen for hypoxia. She has found cough syrup to in most helpful, she is also noting some postnasal drainage and ear fullness, amenable to trial of Flonase. No other concerns for hospitalist team. Exam Narrative: Exam Narrative: GEN: Alert and answering questions appropriately with intermittent coughing paroxysms HEENT: EOMIs bilaterally, no scleral icterus CV: RRR, No concerning murmurs, rubs, or gallops R: Rhonchorous lung nguyen bilaterally, + expiratory wheeze in bilateral apices Skin: No concerning skin lesions or rashes on exposed skin Neuro: Nonfocal Psych: Appropriate Const: Vital Signs, click to edit/add: Vital Signs - 24 hr 01/14/23 11:00 01/14/23 15:30 01/14/23 15:30 Temperature 99.5 F 99.2 F Pulse Rate [Left R adial] 102 H Pulse Rate [Right Pulse Oximeter] 126 H Respiratory Rate 18 18 Blood Pressure [Le ft Arm] 138/94 H 123/52 L Pulse Oximetry 95 93 93 Oxygen Delivery Me thod Nasal Cannula Nasal Cannula Nasal Cannula Oxygen Flow Rate 1 0.5 0.5 01/14/23 19:16 01/15/23 03:10 Temperature 98.1 F 97.9 F Pulse Rate [Left R adial] 98 83 Pulse Rate [Right Pulse Oximeter] Respiratory Rate 18 14 Blood Pressure [Le ft Arm] 123/60 108/53 L Pulse Oximetry 94 97 Oxygen Delivery Me thod Nasal Cannula Nasal Cannula Oxygen Flow Rate 0.5 1 Labs Labs: Laboratory Results - last 24 hr 01/14/23 01/15/23 12:00 07:40 WBC 3.38 L 5.39 RBC 4.40 4.74 Hgb 11.1 L 12.0 Hct 37.3 40.7 MCV 85 86 MCH 25 L 25 L MCHC 30 L 30 L RDW Coeff of Lynette 16.1 H 16.0 H Plt Count 390 404 Neut % (Auto) 38.7 L 28.9 L Lymph % (Auto) 32.[address] [place] % (Auto) 24.0 H 34.3 H Eos % (Auto) 2.1 0.2 Baso % (Auto) 1.8 0.6 Neut # (Auto) 1.30 L 1.60 L Lymph # (Auto) 1.[address] [place] # (Auto) 0.80 1.80 H Eos # (Auto) 0.10 0.01 Baso # (Auto) 0.10 0.03 Sodium 132 L Potassium 4.0 Chloride 97 Carbon Dioxide 32 BUN 24 Creatinine 0.4 L Estimated Creat Clear 34.38 Estimated GFR 103 Glucose 155 H Calcium 8.6 Lactate Baseline 1.5 C-Reactive Protein 13.2 H
[2023-01-15] MEDS: FUROSEMIDE 20 MG TABLET PO (08:53)
[2023-01-15] MEDS: OXYCODONE 5 MG TABLET 2.5 MG PO ×2 (08:53→22:56)
[2023-01-15] MEDS: ACETAMINOPHEN 650 MG TABLET ER 1300 MG PO ×2 (08:53→20:39)
[2023-01-15 09:00] VITALS: BP 123/58; PULSE 111; RESP 20; TEMP 37.1; O2SAT 96
[2023-01-15] MEDS: BENZONATATE 100 MG CAPSULE PO ×3 (09:28→20:39)
[2023-01-15] MEDS: MULTIVITAMIN/MINERALS 1 TABLET 1 TAB PO (09:28)
[2023-01-15] MEDS: METOPROLOL SUCCINATE (XL) 50 MG TAB PO (09:30)
[2023-01-15] MEDS: OMEPRAZOLE 20 MG CAPSULE DR PO ×2 (09:30→20:39)
[2023-01-15] MEDS: FLUTICASONE PROPIONATE NASAL 1 SPRAY NOSTRIL-B (09:30)
[2023-01-15] MEDS: GABAPENTIN 300 MG CAPSULE PO ×3 (09:30→20:39)
[2023-01-15] MEDS: SODIUM CHLORIDE 0.9 % (FLUSH) 10 ML SYRINGE 5 ML IVF ×2 (09:31→20:40)
[2023-01-15] MEDS: LACTOBACILLUS ACIDOPHILUS 1 TABLET 1 TAB PO (09:39)
[2023-01-15] MEDS: predniSONE 10 MG TABLET PO ×2 (09:40→17:47)
[2023-01-15 10:00] VITALS: RESP 20; O2SAT 96
[2023-01-15 11:30] VITALS: BP 116/62; PULSE 94; RESP 20; TEMP 36.9; O2SAT 95
[2023-01-15] MEDS: levoFLOXacin 500 MG TABLET PO (14:50)
[2023-01-15 15:30] VITALS: BP 121/73; PULSE 97; RESP 18; TEMP 37.4; O2SAT 94
--- NOTE | 2023-01-15 15:48 | PC.NURSE ---
Assumed care of this patient from Tia VALENTINE at 0912 am. Morning med pass completed, nsg assessment. Pt takes her medications one pill at a time. Dtr updated on plan of care at bedside. Spouse Jeremiah also visited briefly. Pt encouraged to drink fluids liberally. Eval by Raven GRIJALVA and Dr. Espinoza twice on day shift. Encouraged aerobika use, productive cough treated with tessalon perles and guiafenesin. Pt declined offer of nebulizer Adequate oral intake, delacruz drained 250cc of light ankit urine. Pt needs frequent repositioning, her skin is sensitive and her shoulders are frozen. Blood blister intact on right forearm, redressed with 4 by 4's and telfa, elevated on pillow and ice pack to site. Pt's IV infiltrated and began to leak shortly after IV ATB infusion initiated. Site discontinued and pt stated please see if the doctor can replace it with something in a pill form. Pt anxious about IV starts d/to her experience in CT scan where 2 sites failed, in addition she stated 3 different lab personnel came in and she was poked a total of 12 times for her am blood draw. I just don't want to go through that IV pain again. Dr. Espinoza changed pt's Rocephin to oral levaquin, first dose given. Old dressing removed from right hip wound and site soaked with Dakins on 4 by 4's for 10 minutes. Report to Pamela Beverly RN who was at bedside to visualize wound site. Hydrotherablue cut in 2 strips to pack wound, then it was covered in mepilex. Moderate serosanguinous drainage w/o odor. Pamela will chart on dressing change segment of EMR. Pt repositioned to offload wound site per protocol.
[2023-01-15] MEDS: IPRAT-ALBUT 0.5-2.5 MG/3 ML NEB 1 NEB IH ×2 (18:54→22:55)
[2023-01-15 19:05] VITALS: BP 127/60; PULSE 99; RESP 18; TEMP 36.8; O2SAT 96
[2023-01-15] MEDS: ENOXAPARIN 40 MG/0.4 ML INJ SUBCUT (20:38)
--- NOTE | 2023-01-15 22:19 | PC.NURSE ---
Shift [id number]- Patient uses ice to right arm IV infiltration site. She is turned and repositioned with pillows for offloading, though denies offers this evening. Continues to have occasional wet sounding cough. Appetite intact. Cristobal patent.
[2023-01-16 00:20] VITALS: BP 119/46; PULSE 87; PULSE 97; RESP 16; RESP 18; TEMP 36.7; O2SAT 96
[2023-01-16 03:00] VITALS: BP 145/69; PULSE 99; RESP 20; TEMP 36.5; O2SAT 98
--- NOTE | 2023-01-16 05:46 | PC.NURSE ---
END OF SHIFT NOTE: PT PLEASANT AND COOPERATIVE. DENIES CP, SOB, N/V. PT IS PARAPLEGIC. VSS ON 0.5L NC; AFEBRILE. CALL LIGHT WITHIN PT?S REACH. ULCER TO RIGHT BUTTOCK; COVERED WITH MEPILEX; DRESSING CDI. PT DECLINED REPOSITIONING THROUGHOUT NIGHT. PT EDUCATED ON REASONS FOR REPOSITIONING BODY AND OFFLOADING. PT VERBALIZED UNDERSTANDING EDUCATION AND STILL DECLINED TO BE REPOSITIONED. LS WITH COARSE CRACKLES AND RHONCHI.
[2023-01-16 07:37] LABS: Albumin* 3.5 g/dL (3.3-5.0)
[2023-01-16 07:40] LABS: Alanine Aminotransferase* 71 U/L (4-35); Alkaline Phosphatase* 190 U/L (40-150); Aspartate Amino Transferase* 28 U/L (12-35); Bilirubin Direct* 0.1 mg/dL (0.0-0.5); Bilirubin Total* 0.2 mg/dL (0.1-1.5)
[2023-01-16 07:45] VITALS: BP 165/68; PULSE 105; RESP 20; TEMP 37.7; O2SAT 96; O2SAT 989
[2023-01-16] MEDS: LACTOBACILLUS ACIDOPHILUS 1 TABLET 1 TAB PO (08:46)
[2023-01-16] MEDS: MULTIVITAMIN/MINERALS 1 TABLET 1 TAB PO (08:46)
[2023-01-16] MEDS: METOPROLOL SUCCINATE (XL) 50 MG TAB PO (08:47)
[2023-01-16] MEDS: GABAPENTIN 300 MG CAPSULE PO (08:47)
[2023-01-16] MEDS: OMEPRAZOLE 20 MG CAPSULE DR PO (08:47)
[2023-01-16] MEDS: predniSONE 10 MG TABLET PO (08:47)
[2023-01-16] MEDS: FUROSEMIDE 20 MG TABLET PO (08:47)
[2023-01-16] MEDS: OXYCODONE 5 MG TABLET 2.5 MG PO (08:47)
[2023-01-16] MEDS: ACETAMINOPHEN 650 MG TABLET ER 1300 MG PO (08:48)
[2023-01-16] MEDS: FLUTICASONE PROPIONATE NASAL 1 SPRAY NOSTRIL-B (08:49)
[2023-01-16] MEDS: BENZONATATE 100 MG CAPSULE PO (08:49)
[2023-01-16] MEDS: SODIUM CHLORIDE 0.9 % (FLUSH) 10 ML SYRINGE 5 ML IVF (08:49)
[2023-01-16 11:00] VITALS: PULSE 97; TEMP 37.1
--- NOTE | 2023-01-16 11:15 | PM.DS1 ---
DS: Providers Provider Date Seen: 01/16/23 Date of admission: 01/15/23 12:47 Primary care physician: Flo Mckeon MD Admitting Clinician: Roshan Kline MD Consults: 01/15/23 08:19 Consult to Respiratory Therapy [CONS] Routine Comment: Reason(s) for RT Consult:: Consult Attending Physician on discharge: Lucía Espinoza MD Date of Discharge: 01/16/23 DS: Diagnosis Discharge Diagnosis (1) Hypoxia: Status: Acute Problem details: - likely 2/2 acute respiratory infection, complicated by undiagnosed and untreated sleep apnea, chronic opioid use - Seen by RT and will discharge back to [facility] on 0.5-1L of O2 per NC given mild but persistent hypoxia TTE 01/14/23: Final Impressions: 1. Technically limited exam. 2. Normal LV size, not well visualized wall thickness, hyperdynamic global systolic function with an estimated EF of > 75%. No hemodynamically significant intracavitary gradient. 3. The aortic valve is trileaflet and sclerotic, no stenosis and no regurgitation. 4. The mitral valve is sclerotic, trace mitral regurgitation. 5. Mitral stenosis with mildly increased mean gradient of 5.7 mmHg at a heart rate of 95. 6. Right ventricular cavity size is normal, global systolic RV function is normal. (2) Respiratory infection: Status: Acute Problem details: - viral vs bacterial (high risk given immunosuppressed status) - treated with Ceftriaxone and Azithromycin while inpatient, transitioned to Levaquin upon discharge - also treated with home steroid dose, prn cough syrup, Tessalon Perles, and Flonase given post-nasal drip - RT followed during stay - imaging did not indicate a large PE or pneumonia (3) Paraplegia: Status: Acute Problem details: - age 6, 2/2 transverse myelopathy (4) Chronic steroid use: Status: Acute Problem details: - for RA (5) Chronic pain: Status: Acute Problem details: - Continued gabapentin and oxycodone during stay; avoid NSAIDs given history of recent pre-pyloric ulcer with bleeding (6) 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, stage 4: Status: Acute Problem details: - Previously on chronic antibiotics, no evidence of wound infection at this time - continue outpatient f/u with wound center (7) Sleep apnea: Status: Suspected Problem details: - Clinically suspected, no previous evaluation or sleep study (8) Abnormal LFTs: Status: Acute Problem details: - asymptomatic, s/p cholecystectomy, improved during stay - recommend outpatient followup (9) Bacteriuria: Status: Acute Problem details: - Proteus on culture, sensitive to Ceftriaxone and Levaquin - chronic indwelling delacruz DS: Summary Hospital Course Hospital Course: Mary is a very pleasant 77-year-old female with multiple medical comorbidities (RA, nonambulatory secondary to transverse myelopathy, presumed HUI) who presented to the hospital on 01/13 with cough and hypoxia, in addition to weakness. She did not have evidence of a PE on admission imaging, was noted to have a UTI. She was treated with ceftriaxone and azithromycin for her respiratory infection/UTI, transitioned to oral Levaquin upon discharge. Her coughing paroxysms were controlled with her home dose of steroid (on this for RA), Tessalon Perles, guaifenesin with codeine cough syrup, and Flonase. She was followed by respiratory therapy and does require a low-dose supplemental oxygen upon discharge. Patient feels significantly improved and is requesting discharge back to [address] [place] [address] on 01/16/2023. She will see the [facility] (following with them for a sacral pressure ulcer) and PCP within 1-2 weeks of discharge. Follow-up recommendation: - LFTs during post hospital visit (elevated during stay, patient asymptomatic) Status at Discharge Functional status at discharge: wheelchair bound Time Spent with Patient Time attestation: Total time spent providing and/or coordinating discharge services: Time spent: Greater than 30 minutes Specific discharge activities: Medication reconciliation, care coordination with multidisciplinary team Exam Narrative: Exam Narrative: GEN: Alert and oriented, sitting comfortably in bed and speaking in full sentences with less coughing paroxysms today HEENT: EOMIs bilaterally, no scleral icterus CV: RRR, No concerning murmurs, rubs, or gallops R: Mild rhonchi bilateral apices, coarse lung sounds bilateral bases Skin: No concerning skin lesions or rashes on exposed skin Neuro: No focal deficits or resting tremor Psych: Appropriate Const: Vital Signs, click to edit/add: Vital Signs - 24 hr 01/15/23 11:30 01/15/23 15:30 01/15/23 15:30 Temperature 98.4 F 99.4 F Pulse Rate [Apical ] 94 Pulse Rate [Left R adial] 94 97 Pulse Rate [Right Pulse Oximeter] 94 Respiratory Rate 20 18 Blood Pressure [Le ft Arm] 116/62 121/73 Pulse Oximetry 95 94 94 Oxygen Delivery Me thod Nasal Cannula Nasal Cannula Nasal Cannula Oxygen Flow Rate 0.5 0.5 0.5 01/15/23 19:05 01/16/23 00:20 01/16/23 00:20 Temperature 98.2 F Pulse Rate [Apical ] Pulse Rate [Left R adial] 99 Pulse Rate [Right Pulse Oximeter] 87 Respiratory Rate 18 16 16 Blood Pressure [Le ft Arm] 127/60 Pulse Oximetry 96 96 Oxygen Delivery Me thod Nasal Cannula Oxygen Flow Rate 0.5 01/16/23 00:20 01/16/23 03:00 Temperature 98.0 F 97.7 F Pulse Rate [Apical ] Pulse Rate [Left R adial] Pulse Rate [Right Pulse Oximeter] 97 99 Respiratory Rate 18 20 Blood Pressure [Le ft Arm] 119/46 L 145/69 H Pulse Oximetry 96 98 Oxygen Delivery Me thod Nasal Cannula Nasal Cannula Oxygen Flow Rate 0.5 0.5 DS: Data Data Completed and Pending Completed studies during hospitalization: Procedures Excision of Duodenum, Via Natural or Artificial Opening Endoscopic, Diagnostic (10/31/22) Excision of Right Upper Leg Subcutaneous Tissue and Fascia, Open Approach (10/31/22) Excision of Stomach, Pylorus, Via Natural or Artificial Opening Endoscopic, Diagnostic (10/31/22) Transfusion of Nonautologous Red Blood Cells into Peripheral Vein, Percutaneous Approach (10/31/22) Labs on day of discharge: Labs from last 24 hours 01/16/23 07:10 Total Bilirubin 0.2 Direct Bilirubin 0.1 AST 28 ALT 71 H Alkaline Phosphatase 190 H Total Protein 6.0 Albumin 3.5 Preliminary micro results at discharge 01/13/23 13:20 Blood Culture - Preliminary Blood NO GROWTH AFTER 48 HOURS 01/13/23 12:40 Blood Culture - Preliminary Blood NO GROWTH AFTER 48 HOURS Discharge Plan Discharge Disposition: er [facility] Date of Admission: 01/15/23 12:47 Attending Provider on Discharge: Lucía Espinoza Primary Care Provider: Flo Mckeon Condition: Improved Anticipated Discharge Date/Time: 01/16/23 13:30 Discharge Medications: New benzonatate 100 mg Capsule 100 mg PO TID Qty: 20 0RF levofloxacin 500 mg Tablet 500 mg PO Q24H 5 Days Qty: 5 0RF fluticasone propionate 50 mcg/actuation [place],Suspension 1 spray intranasal DAILY Qty: 16 0RF codeine-guaifenesin 10-100 mg/5 mL liquid 5 ml PO Q6H PRNQty: 118 0RF Continued multivitamin [Daily Multi-Vitamin] Tablet 1 tab PO DAILY Probiotic 3 billion cell capsule 3,000 mmu cells PO DAILY Rx Instructions: administer with a meal metoprolol succinate 50 mg tablet extended release 24 hr 50 mg PO DAILY prednisone 5 mg tablet 10 mg PO DAILY furosemide 20 mg tablet 20 mg PO DAILY omeprazole 20 mg capsule,delayed release(DR/EC) 20 mg PO BID Qty: 60 2RF bisacodyl [Gentle Laxative (bisacodyl)] 10 mg suppository 10 mg [place] BID PRN nystatin 100,000 unit/gram powder 1 applic topical BID PRN oxycodone 5 mg tablet 2.5 mg PO Q4H PRN acetaminophen [8 Hour Pain Reliever] 650 mg tablet extended release 1,300 mg PO BID zinc sulfate [Orazinc] 50 mg zinc (220 mg) capsule 100 mg PO DAILY gabapentin 300 mg capsule 300 mg PO TID Qty: 270 2RF Discharge Orders: Discharge Order (Routine); Ordered 01/16/23 Ordered By: Lucía Espinoza Additional Instructions: Wear 0.5L of Oxygen to prevent hypoxia, can wean off of this as you continue to improve. Activity Level: Activity as Tolerated Discharge Diet: Regular Follow Up Appointments: Flo Mckeon MD [Primary Care Provider] - 01/23/23 2:15 pm (Appt with Dr. Mckeon scheduled at 2:15 January 23, 2023, after her 1:00pm appointment.) Wound Care: per previous Admit to: SNF Discharge Potential: Fair Length of Stay: 30-90 days Can use facility standing orders?: Yes Code Status: Full Code Rehab Potential: Poor Oxygen: Yes Oxygen Delivery Method: Nasal Cannula Oxygen Flow Rate: 0.5-1L to keep saturations >90% Urinary Catheter: Yes Delacruz Catheter [place]an Size: 16 Orders are good >30 days: Yes Signature: Lucía Espinoza MD
--- NOTE | 2023-01-16 14:06 | PC.NURSE ---
VSS AND PATIENT TOLERATING REGULAR DIET. ATTEMPTED TO WEAN PATIENT OFF OXYGEN BUT SATS DECREASE TO 83-85%RA. 0.5LPM O2 PER NC APPLIED AND SATS 93-95%. PRODUCTIVE COUGH. REPORT GIVEN TO NURSE AT [facility] AND PATIENT TRANSFERRED VIA EMS BACK TO [facility].
--- NOTE | 2023-01-17 13:16 | PC.NURSE ---
Discharge Note: Called Tia RN at home to discuss patients discharge. Asked if she had called [facility] to notify them of patient returning to their facility and gave nurse to nurse on the patient before she was transported back to the facility. She stated Yes I called and the nurse taking report was rude stating she was not the patients normal nurse but she did take report on the patient. Patient was then transported by EMS back to [facility].
--- NOTE | 2023-01-17 16:31 | PC.SOCIAL ---
Discharge planning: Late entry: On 01/16/23, social service manager called campus coordinator, Elvi Linder at 11:10 on her office phone [phone] and 11:15 on her cell phone [phone] and left messages on both of these phones that pt was ready for discharge back to [facility] today. Called Elvi Linder on 01/17/23 to request additional contact numbers as she never responded to messages left yesterday. She provided additional [facility] staff contact phone numbers to call in the future if she does not answer her phone and stated that due to her increased work responsibilities, she was not at her desk on 01/16/23 and was not carrying her cell phone, and acknowledged that messages had been left for her regarding this patient but that she did not retrieve them yesterday.
== END 2023-01-16 11:44 | DRG 205 ==
LOC: ED 15:50 → MEDSURG 16:01
PROVIDERS: Family Medicine; Hospitalist; Admitting Provider Family Medicine; Emergency Provider Emergency Medicine; PCP Family Medicine; Visit Provider Family Medicine
DX: J22 Unspecified acute lower respiratory infection (principal); G82.50 Quadriplegia, unspecified; L89.314 Pressure ulcer of right buttock, stage 4; G37.3 Acute transverse myelitis in demyelinating disease of central nervous system; M86.651 Other chronic osteomyelitis, right thigh; N39.0 Urinary tract infection, site not specified; G82.20 Paraplegia, unspecified; Z79.52 Long term (current) use of systemic steroids; G89.29 Other chronic pain; I10 Essential (primary) hypertension; N31.9 Neuromuscular dysfunction of bladder, unspecified; G47.30 Sleep apnea, unspecified; R09.02 Hypoxemia; B96.4 Proteus (mirabilis) (morganii) as the cause of diseases classified elsewhere; J30.9 Allergic rhinitis, unspecified; R94.5 Abnormal results of liver function studies; M06.9 Rheumatoid arthritis, unspecified; I05.0 Rheumatic mitral stenosis; M81.0 Age-related osteoporosis without current pathological fracture
CPT/HCPCS: 36415; 71045; 71260; 76705; 80048; 80074; 80076; 81001; 83605; 83880; 84145; 84484; 85025; 85379; 86140; 87040; 87086; 87186; 87631; 87635; 93005; 93306; 94640; 94664; 94761; 99284; 99285; A9153; A9270; G0378; J0696; J1650; J1940; J2920; J7030; J7050; J7512; Q9967

== ENCOUNTER 2023-01-16 11:39 | Outpatient (CLI) | payer MEDICARE, SELFPAY | END 2023-01-16 11:40 | disposition home or self-care (01) | LOC: AMB 22:39 | PROVIDERS: PCP Family Medicine; Visit Provider Emergency Medicine Emergency Medical Services | DX: R05.9 Cough, unspecified (principal); Z99.3 Dependence on wheelchair | CPT/HCPCS: A0425; A0428 ==

== ENCOUNTER 2023-02-03 10:59 | Outpatient (CLI) | payer MEDICARE, SELFPAY | END 2023-02-03 11:00 | disposition home or self-care (01) | LOC: WOUND 10:59 | PROVIDERS: PCP Family Medicine; Visit Provider Physician Assistant Surgical | DX: M86.68 Other chronic osteomyelitis, other site (principal); L89.314 Pressure ulcer of right buttock, stage 4; S51.801A Unspecified open wound of right forearm, initial encounter | CPT/HCPCS: 11042; 11043; 97605 ==

== ENCOUNTER 2023-02-10 10:37 | Outpatient (CLI) | payer MEDICARE, SELFPAY | END 2023-02-10 10:38 | disposition home or self-care (01) | LOC: WOUND 10:37 | PROVIDERS: PCP Family Medicine; Visit Provider Nurse Practitioner Family | DX: M86.68 Other chronic osteomyelitis, other site (principal); L89.314 Pressure ulcer of right buttock, stage 4; T80 Complications following infusion, transfusion and therapeutic injection; Q82.0 Hereditary lymphedema; G82.20 Paraplegia, unspecified; Z99.3 Dependence on wheelchair | CPT/HCPCS: 11042; 97602; 97605 ==

== ENCOUNTER 2023-03-17 10:57 | Outpatient (CLI) | payer MEDICARE, SELFPAY | END 2023-03-17 10:58 | disposition home or self-care (01) | LOC: WOUND 10:58 | PROVIDERS: PCP Family Medicine; Visit Provider Nurse Practitioner Family | DX: M86.68 Other chronic osteomyelitis, other site (principal); L89.314 Pressure ulcer of right buttock, stage 4; G82.20 Paraplegia, unspecified; Z99.3 Dependence on wheelchair | CPT/HCPCS: 97597; 97605 ==

== ENCOUNTER 2023-03-24 09:21 | Outpatient (CLI) | payer MEDICARE, SELFPAY | END 2023-03-24 09:22 | disposition home or self-care (01) | PROVIDERS: PCP Family Medicine; Visit Provider Family Medicine | DX: L89.44 Pressure ulcer of contiguous site of back, buttock and hip, stage 4 (principal) | CPT/HCPCS: 87086; 87186 ==

== ENCOUNTER 2023-03-24 11:02 | Outpatient (CLI) | payer MEDICARE, SELFPAY | END 2023-03-24 11:03 | disposition home or self-care (01) | LOC: WOUND 11:02 | PROVIDERS: PCP Family Medicine; Visit Provider Nurse Practitioner Family | DX: M86.68 Other chronic osteomyelitis, other site (principal); L89.314 Pressure ulcer of right buttock, stage 4; N39.0 Urinary tract infection, site not specified; B96.1 Klebsiella pneumoniae [K. pneumoniae] as the cause of diseases classified elsewhere; Z99.3 Dependence on wheelchair | CPT/HCPCS: 11042; 87086; 87186; 97605 ==

== ENCOUNTER 2023-04-07 11:19 | Outpatient (CLI) | payer MEDICARE, SELFPAY ==
--- OUTSIDE RECORDS SUMMARY | 2023-04-07 11:20 | XMS_ITS | Continuity of Care Document ---
Author Name Unknown Organization [facility] Address [address] [place] [address] Phone Care Team Providers Care Storeroom Clerk Name Role Phone Susan Guerrero Unavailable Unavail able Allergies, Adverse Reactions, Alerts Substance Reaction Status Criticality vancomycin Active No Information Medications Medication Instructions Dosage Effective Dates (start - stop) Status Comments PREDNISONE INTENSOL (unknown strength) Not Available - Active VALU-MASON DECONGESTANT (unknown strength) Not Available - Active TRAZODONE HCL (unknown strength) Not Available - Active HYDROCODONE-ACETAMINOPH EN (unknown strength) Not Available - Active DULCOLAX STOOL SOFTENER (unknown strength) Not Available - Active MIRALAX (unknown strength) Not Available - Active Procedures Procedure Date Office/Outpatient Visit,[facility] 2013 Advance Directives Directive Yes / No Effective Date File Name No Information Encounters Encounter Description Practice Location Reason(s) For Visit Diagnoses Date Provider Providers Copied on Encounter [facility], [address], [place], [place], [id number], [place] tel:[phone] [facility] No Information 6 Pandiscio Susan. [facility], [address] [place] [address], [address], [place], [place], [id number], [place]. tel:[phone] Office/Outpat ient Visit,[facility], [address], [place], [address], [place] tel:[phone] [facility] No Information 4 Pandiscio Susan. [facility], [address], [address], [place], [place], [address], [place]. tel:[phone] Referring Provider: Freida Doe, [facility] [address], [place], [address]. tel:[phone] Family History Family Member Type Diagnosis Age At Onset No Information Payers Payer name Insurance type Covered alliance party ID Authoriza tion(s) No Information Social History Type Description Quantity Date Captured Comments Sex Female Smoking Status No Information Chief Complaint And Reason For Visit No Information Reason For Referral Reason For Referral No Information Plan Of Treatment Date Type Action Status No Information History Of Present Illness Encounter Date Complaint History Of Prese nt Illness No Information Functional Status Date Functional Assessmen t No Information Instructions Date Instruction Additional Infor mation No Information Assessments Type Assessment Date No Information Patient Care Teams Name Effective Dates (start - stop) Status Members No Information
== END 2023-04-07 11:20 | disposition home or self-care (01) ==
LOC: WOUND 11:19
PROVIDERS: PCP Family Medicine; Visit Provider Family Medicine
DX: M86.68 Other chronic osteomyelitis, other site (principal); I87.2 Venous insufficiency (chronic) (peripheral); M06.9 Rheumatoid arthritis, unspecified; G82.20 Paraplegia, unspecified
CPT/HCPCS: 11042; 97605

== ENCOUNTER 2023-04-28 10:55 | Outpatient (CLI) | payer MEDICARE, SELFPAY | END 2023-04-28 10:56 | disposition home or self-care (01) | LOC: WOUND 10:55 | PROVIDERS: PCP Family Medicine; Visit Provider Nurse Practitioner Family | DX: L89.314 Pressure ulcer of right buttock, stage 4 (principal); Q82.0 Hereditary lymphedema; I87.2 Venous insufficiency (chronic) (peripheral) | CPT/HCPCS: 11042; 97605 ==

== ENCOUNTER 2023-05-12 11:02 | Outpatient (CLI) | payer MEDICARE, SELFPAY ==
--- OUTSIDE RECORDS SUMMARY | 2023-05-12 11:04 | XMS_ITS | Continuity of Care Document ---
Author Name Unknown Organization [facility] Address [address] [place] [address] Phone Care Team Providers Care Hydraulic Controls Technician Name Role Phone Susan Guerrero Unavailable Unavail [...] Available - Active Procedures Procedure Date Office/Outpatient Visit,[facility] 2013 Advance Directives Directive Yes / No Effective Date File Name No Information Encounters Encounter Description Practice Location Reason(s) For Visit Diagnoses Date Provider Providers Copied on Encounter [facility], [address], [place], [place], [id number], [place] tel:[phone] [facility] No Information 6 Pandiscio Susan. [facility], [address] [place] [address], [address], [place], [place], [id number], [place]. tel:[phone] Office/Outpat ient Visit,[facility], [address], [place], [address], [place] tel:[phone] [facility] No Information 4 Pandiscio Susan. [facility], [address], [address], [place], [place], [id number], [place]. tel:[phone] Referring Provider: Freida Doe, [facility] [address], [place], [address]. tel:[phone] Family History Family Member Type Diagnosis Age At Onset No Information Payers Payer name Insurance type Covered constitution party ID Authoriza tion(s) No Information Social History Type Description Quantity Date Captured Comments Sex Female Smoking Status No Information Chief Complaint And Reason For Visit No Information Reason For Referral Reason For Referral No Information History Of Present Illness Encounter Date Complaint History Of Prese nt Illness No Information Functional Status Date Functional Assessmen t No Information Instructions Date Instruction Additional Infor mation No Information Assessments Type Assessment Date No Information Patient Care Teams Name Effective Dates (start - stop) Status Members No Information
== END 2023-05-12 11:03 | disposition home or self-care (01) ==
LOC: WOUND 11:03
PROVIDERS: PCP Family Medicine; Visit Provider Nurse Practitioner Family
DX: M86.68 Other chronic osteomyelitis, other site (principal); L89.314 Pressure ulcer of right buttock, stage 4; Q82.0 Hereditary lymphedema
CPT/HCPCS: 11042; 97605

== ENCOUNTER 2023-05-26 11:05 | Outpatient (CLI) | payer MEDICARE, SELFPAY | END 2023-05-26 11:06 | disposition home or self-care (01) | LOC: WOUND 11:05 | PROVIDERS: PCP Family Medicine; Visit Provider Nurse Practitioner Family | DX: L89.314 Pressure ulcer of right buttock, stage 4 (principal); M86.68 Other chronic osteomyelitis, other site; G82.20 Paraplegia, unspecified; Z99.3 Dependence on wheelchair | CPT/HCPCS: 11042; 97605 ==

== ENCOUNTER 2023-06-09 10:54 | Outpatient (CLI) | payer MEDICARE, SELFPAY ==
--- OUTSIDE RECORDS SUMMARY | 2023-06-09 10:56 | XMS_ITS | Continuity of Care Document ---
Author Name Unknown Organization [facility] Address [address] [place] [address] Phone Care Team Providers Care Claims Assistant Name Role Phone Susan Guerrero Unavailable Unavail [...] Available - Active Procedures Procedure Date Office/Outpatient Visit,[facility] 2013 Advance Directives Directive Yes / No Effective Date File Name No Information Encounters Encounter Description Practice Location Reason(s) For Visit Diagnoses Date Provider Providers Copied on Encounter [facility], [address], [place], [place], [id number], [place] tel:[phone] [facility] No Information 6 Pandiscio Susan. [facility], [address] [place] [address], [address], [place], [place], [address], [place]. tel:[phone] Office/Outpat ient Visit,[facility], [address], [place], [address], [place] tel:[phone] [facility] No Information 4 Pandiscio Susan. [facility], [address], [address], [place], [place], [address], [place]. tel:[phone] Referring Provider: Freida Doe, [facility] [address], [place], [address]. tel:[phone] Family History Family Member Type Diagnosis Age At Onset No Information Payers Payer name Insurance type Covered libertarian ID Authoriza tion(s) No Information Social History [...]
== END 2023-06-09 10:55 | disposition home or self-care (01) ==
LOC: WOUND 10:54
PROVIDERS: PCP Family Medicine; Visit Provider Nurse Practitioner Family
DX: M86.68 Other chronic osteomyelitis, other site (principal); L89.314 Pressure ulcer of right buttock, stage 4; Q82.0 Hereditary lymphedema; G82.20 Paraplegia, unspecified; Z99.3 Dependence on wheelchair
CPT/HCPCS: 11042; 97605

== ENCOUNTER 2023-06-11 12:42 | Outpatient (CLI) | payer MEDICARE, SELFPAY | END 2023-06-11 12:43 | disposition home or self-care (01) | LOC: FRMREF 12:45 | PROVIDERS: PCP Family Medicine; Visit Provider Family Medicine | DX: R30.0 Dysuria (principal); N39.0 Urinary tract infection, site not specified | CPT/HCPCS: 87086; 87186 ==

== ENCOUNTER 2023-06-23 10:52 | Outpatient (CLI) | payer MEDICARE, SELFPAY ==
--- OUTSIDE RECORDS SUMMARY | 2023-06-23 10:55 | XMS_ITS | Continuity of Care Document ---
Author Name Unknown Organization [facility] Address [address] [place] [address] Phone Care Team Providers Care Men'S Custom Hair Piece Consultant Name Role Phone Susan Guerrero Unavailable Unavail [...] Available - Active Procedures Procedure Date Office/Outpatient Visit,[facility] 2013 Advance Directives Directive Yes / No Effective Date File Name No Information Encounters Encounter Description Practice Location Reason(s) For Visit Diagnoses Date Provider Providers Copied on Encounter [facility], [address], [place], [place], [id number], [place] tel:[phone] [facility] No Information 6 Pandiscio Susan. [facility] [place], [address] [place] [address], [address], [place], [place], [id number], [place]. tel:[phone] Office/Outpat ient Visit,[facility] [place], [address], [place], [address], [place] tel:[phone] [facility] No Information 4 Pandiscio Susan. [facility], [address], [address], [place], [place], [id number], [place]. tel:[phone] Referring Provider: Freida Doe, [facility] [address], [place], [address]. tel:[phone] Family History Family Member Type Diagnosis Age At Onset No Information Payers Payer name Insurance type Covered green party ID Authoriza tion(s) No Information Social [...]
== END 2023-06-23 10:53 | disposition home or self-care (01) ==
LOC: WOUND 10:52
PROVIDERS: PCP Family Medicine; Visit Provider Nurse Practitioner Family
DX: M86.68 Other chronic osteomyelitis, other site (principal); L89.314 Pressure ulcer of right buttock, stage 4; I87.2 Venous insufficiency (chronic) (peripheral); Q82.0 Hereditary lymphedema; G82.20 Paraplegia, unspecified; Z99.3 Dependence on wheelchair; I10 Essential (primary) hypertension; E78.5 Hyperlipidemia, unspecified
CPT/HCPCS: 11042; 80048; 80061; 97605

== ENCOUNTER 2023-07-07 10:47 | Outpatient (CLI) | payer MEDICARE, SELFPAY ==
--- OUTSIDE RECORDS SUMMARY | 2023-07-07 10:49 | XMS_ITS | Continuity of Care Document ---
Author Name Unknown Organization [facility] Address [address] [place] [address] Phone Care Team Providers Care Wood Last Maker Name Role Phone Susan Guerrero Unavailable Unavail [...] Available - Active Procedures Procedure Date Office/Outpatient Visit,[facility] 2013 Advance Directives Directive Yes / No Effective Date File Name No Information Encounters Encounter Description Practice Location Reason(s) For Visit Diagnoses Date Provider Providers Copied on Encounter [facility], [address], [place], [place], [id number], [place] tel:[phone] [facility] No Information 6 Pandiscio Susan. [facility] [place], [address] [place] [address], [address], [place], [place], [id number], [place]. tel:[phone] Office/Outpat ient Visit,[facility] [place], [address], [place], [address], [place] tel:[phone] [facility] No Information 4 Pandiscio Susan. [facility], [address], [address], [place], [place], [id number], [place]. tel:[phone] Referring Provider: Freida Doe, [facility] [address] [address], [place], [address]. tel:[phone] Family History Family Member Type Diagnosis Age [...]
== END 2023-07-07 10:48 | disposition home or self-care (01) ==
LOC: WOUND 10:47
PROVIDERS: PCP Family Medicine; Visit Provider Nurse Practitioner Family
DX: L89.314 Pressure ulcer of right buttock, stage 4 (principal); G82.20 Paraplegia, unspecified; Z99.3 Dependence on wheelchair
CPT/HCPCS: 11042; 97605

== ENCOUNTER 2023-07-10 11:46 | Outpatient (CLI) | payer MEDICARE, SELFPAY ==
--- NOTE | 2023-07-10 13:00 | CRLHL7_ITS ---
For Patients: As a result of the Century Cures Act, medical imaging exams and procedure reports are released immediately into your electronic medical record. You may view this report before your referring provider. If you have questions, please contact your health care provider. INDICATION: Right neck swelling and lump. COMPARISON: None. TECHNIQUE: CT soft tissue neck with IV contrast. Isovue 370, 71 cc. FINDINGS: A marker has not been placed to localize a palpable abnormality. Normal bilateral parotid and submandibular glands. Normal thyroid gland. No enlarged cervical lymph nodes bilaterally. No supraclavicular superior mediastinal adenopathy. Nasopharynx and oropharynx are clear. No inflammation within the parapharyngeal fat pads or retropharyngeal space. Normal thickness of the epiglottis. Normal glottis with symmetric vocal cords. Lung apices are clear. Kyphotic deformity of the cervical spine. Cervical spondylosis. No prevertebral soft tissue swelling. Postoperative changes of Bae bobby in the thoracic spine. Visualized paranasal sinuses and mastoid air cells are clear. Visualized orbits are unremarkable. IMPRESSION: 1. No adenopathy. 2. Normal deep soft tissues of the neck. 3. Cervical spondylosis. 4. Kyphotic deformity of the cervical spine. Please note that all CT scans at this facility use dose modulation, iterative reconstruction, and/or weight-based dosing when appropriate to reduce radiation dose to as low as reasonably achievable. Dictated by Douglas Smith MD @ 07/11/2023 1:37:05 PM (Electronically Signed)
== END 2023-07-10 11:47 | disposition home or self-care (01) ==
LOC: CT 11:48
PROVIDERS: PCP Family Medicine; Visit Provider Otolaryngology
DX: R22.1 Localized swelling, mass and lump, neck (principal); M47.892 Other spondylosis, cervical region; M40.293 Other kyphosis, cervicothoracic region; J38.00 Paralysis of vocal cords and larynx, unspecified
CPT/HCPCS: 70491; Q9967

== ENCOUNTER 2023-07-21 10:55 | Outpatient (CLI) | payer MEDICARE, SELFPAY | END 2023-07-21 10:56 | disposition home or self-care (01) | LOC: WOUND 10:55 | PROVIDERS: PCP Family Medicine; Visit Provider Nurse Practitioner Family | DX: M86.68 Other chronic osteomyelitis, other site (principal); L89.314 Pressure ulcer of right buttock, stage 4 | CPT/HCPCS: 97597; 97605 ==

== ENCOUNTER 2023-07-29 12:39 | Outpatient (CLI) | payer MEDICARE, SELFPAY ==
--- NOTE | 2023-07-29 13:00 | CRLHL7_ITS ---
For Patients: As a result of the Century Cures Act, medical imaging exams and procedure reports are released immediately into your electronic medical record. You may view this report before your referring provider. If you have questions, please contact your health care provider. INDICATION: Vocal cord paralysis. TECHNIQUE: Brain MRI with contrast. The following sequences were obtained: Sagittal T1 weighted sequence. DWI and ADC mapping sequences. Axial FLAIR and TIMOTHY T2 weighted sequences. T1 weighted post-contrast sequence(s). 15 cc of Dotarem gadolinium based contrast agent was used. COMPARISON: Head CT from 11/17/2020. FINDINGS: No evidence of acute ischemia. No evidence of acute or chronic intracranial blood products. No mass or pathologic intracranial enhancement. Patchy FLAIR hyperintensities within the supratentorial white matter and brainstem, typical for chronic microvascular ischemic change. Small chronic lacunar infarct within the right dorsal lateral thalamus. No hydrocephalus or extra-axial collections. The pituitary gland, parasellar structures and optic chiasm are normal. Posterior fossa is normal. All the major intracranial vascular structures demonstrate normal flow-related signal. The orbital contents are normal. No calvarial or skull base marrow signal abnormality. Mild polypoid mucosal thickening left maxillary sinus. No extracranial soft tissue findings. IMPRESSION: 1. No acute infarction or other acute intracranial pathology. 2. No mass or pathologic intracranial enhancement. In particular, no focal lesion involving the posterior fossa/skullbase including the jugular foramina. 3. Mild chronic microvascular ischemic changes. Small chronic lacunar infarct within the right dorsal lateral thalamus. Dictated by Dewayne Marquez MD @ 07/30/2023 10:41:19 AM (Electronically Signed)
--- NOTE | 2023-07-29 14:00 | CRLHL7_ITS ---
For Patients: As a result of the Century Cures Act, medical imaging exams and procedure reports are released immediately into your electronic medical record. You may view this report before your referring provider. If you have questions, please contact your health care provider. INDICATION: Neck lump. Vocal cord paralysis TECHNIQUE: Neck MRI with contrast. The following sequences were obtained. Sagittal T1 weighted sequence. Coronal T1 and STIR sequences Axial T1 and T2 weighted sequences Axial and coronal T1 weighted post-contrast sequences 15 cc of Dotarem intravenous contrast agent was used. COMPARISON: Neck CT from 07/10/2023. FINDINGS: There is no mass or other lesion within the soft tissues of the suprahyoid or infrahyoid neck. The oral cavity, nasopharyngeal, oropharyngeal and hypopharyngeal mucosal spaces are normal. There is no visible lesion involving the supraglottic, glottic or infraglottic larynx. The airway including the trachea is normal and is patent. The parotid glands and submandibular glands are normal in appearance. The thyroid gland is normal in appearance. The vascular structures demonstrate normal flow related signal. No aggressive marrow signal abnormalities within the skullbase or cervical spine. Degenerative osseous fusion along the C4-5 interspace. Trace anterolisthesis at C2-3 and C3-4. Advanced disc height loss, disc desiccation with endplate remodeling at C5-6, C6-7, C7-T1, T1-2 and T2-3. Degenerative osseous fusion along the C4-5 interspace. Moderate cervical kyphosis. C3-4 right central protrusion mildly flattens the ventral cord and contributes to mild spinal canal stenosis. C4-5 central protrusion/osteophyte mildly flattens the ventral cord and contributes to mild spinal canal stenosis. Multilevel uncovertebral/facet arthrosis contributes to variable neural foraminal stenosis, including high-grade neural foraminal stenosis at C6-7, C7-T1 and T1-2 on the left. Susceptibility artifact upper thoracic spine from hardware. Right TMJ arthrosis. Mild polypoid mucosal thickening left maxillary sinus. Left mastoid tip effusion. Supraclavicular regions, mediastinum and soft tissues of the imaged chest wall are normal. Visualized portions of the upper lungs are clear. IMPRESSION: 1. No mass or pathologic lymphadenopathy within the neck. 2. No visible lesion involving the laryngeal region. 3. Multilevel advanced cervical/upper thoracic spondylosis with accompanying cervical kyphosis. Advanced right TMJ arthrosis. Dictated by Dewayne Marquez MD @ 07/30/2023 10:56:08 AM (Electronically Signed)
== END 2023-07-29 12:40 | disposition home or self-care (01) ==
LOC: MRI 12:40
PROVIDERS: PCP Family Medicine; Visit Provider Otolaryngology
DX: R22.1 Localized swelling, mass and lump, neck (principal); M47.894 Other spondylosis, thoracic region; M19.09 Primary osteoarthritis, other specified site; J38.00 Paralysis of vocal cords and larynx, unspecified
CPT/HCPCS: 70543; 70553; A9575

== ENCOUNTER 2023-08-04 10:54 | Outpatient (CLI) | payer MEDICARE, SELFPAY | END 2023-08-04 10:55 | disposition home or self-care (01) | LOC: WOUND 10:54 | PROVIDERS: PCP Family Medicine; Visit Provider Nurse Practitioner Family | DX: M86.68 Other chronic osteomyelitis, other site (principal); L89.314 Pressure ulcer of right buttock, stage 4; G82.20 Paraplegia, unspecified; Z99.3 Dependence on wheelchair | CPT/HCPCS: 11042; 97605 ==

== ENCOUNTER 2023-08-18 10:50 | Outpatient (CLI) | payer MEDICARE, SELFPAY ==
--- OUTSIDE RECORDS SUMMARY | 2023-08-18 10:51 | XMS_ITS | Continuity of Care Document ---
Author Name Unknown Organization [facility] Address [address] [place] [address] Phone Care Team Providers Care Heater Room Helper Name Role Phone Susan Guerrero Unavailable Unavail [...] Available - Active Procedures Procedure Date Office/Outpatient Visit,[facility] 2013 Advance Directives Directive Yes / No Effective Date File Name No Information Encounters Encounter Description Practice Location Reason(s) For Visit Diagnoses Date Provider Providers Copied on Encounter [facility], [address], [place], [place], [id number], [place] tel:[phone] [facility] No Information 6 Pandiscio Susan. [facility] [place], [address] [place] [address], [address], [place], [place], [id number], [place]. tel:[phone] Office/Outpat ient Visit,[facility] [place], [address], [place], [address], [place] tel:[phone] [facility] No Information 4 Pandiscio Susan. [facility], [address], [address], [place], [place], [id number], [place]. tel:[phone] Referring Provider: Freida Doe, [facility] [address], [place], [address]. tel:[phone] Family History Family Member Type Diagnosis Age [...]
== END 2023-08-18 10:51 | disposition home or self-care (01) ==
LOC: WOUND 10:50
PROVIDERS: PCP Family Medicine; Visit Provider Nurse Practitioner Family
DX: L89.314 Pressure ulcer of right buttock, stage 4 (principal); Q82.0 Hereditary lymphedema; G82.20 Paraplegia, unspecified; Z99.3 Dependence on wheelchair
CPT/HCPCS: 11042; 97605

== ENCOUNTER 2023-08-25 14:03 | Outpatient (CLI) | payer MEDICARE, SELFPAY ==
--- OUTSIDE RECORDS SUMMARY | 2023-08-29 12:23 | XMS_ITS | Continuity of Care Document ---
Author Name Unknown Organization [facility] Address [address] [place] [address] Phone Care Team Providers Care Environmental Scientists Name Role Phone Susan Guerrero Unavailable Unavail [...] Copied on Encounter [facility], [address], [place], [place], [id number], [place] tel:[phone] [facility] No Information 6 Pandiscio Susan. [facility], [address] [place] [address], [address], [place], [place], [id number], [place]. tel:[phone] Office/Outpat ient Visit,[facility], [address], [place], [address], [place] tel:[phone] [facility] No Information 4 Pandiscio Susan. [facility], [address], [address], [place], [place], [id number], [place]. tel:[phone] Referring Provider: Freida Doe, [facility] [address], [place], [address]. tel:[phone] Family History Family Member Type Diagnosis Age [...]
== END 2023-08-25 14:04 | disposition home or self-care (01) ==
LOC: NFLDREF 08-29 12:22
PROVIDERS: PCP Family Medicine; Referring Provider Family Medicine; Visit Provider Family Medicine
DX: N39.0 Urinary tract infection, site not specified (principal)
CPT/HCPCS: 87086; 87186

== ENCOUNTER 2023-08-27 17:35 | Inpatient (IN) | payer MEDICARE, SELFPAY ==
[2023-08-27] VITALS (17 sets, daily range): BP systolic 137–162; BP diastolic 69–80; PULSE 103–109; RESP 18; TEMP 36.9; O2SAT 86–95; BMI 28.3
--- NOTE | 2023-08-27 18:25 | ED.GENADULT ---
HPI - General Adult General Chief complaint: Constipation <Jeremiah Reich MD - Last Filed: 08/28/23 02:47> Stated complaint: Rectal pain/bleeding <Jeremiah Reich MD - Last Filed: 08/28/23 02:47> Time Seen by Provider: 08/27/23 18:06 <Jeremiah Reich MD - Last Filed: 08/28/23 02:47> History of Present Illness HPI narrative: Pt reports rectal pain that started x 1 week ago. Has not been able to have a BM since then. Pt currently having visits from [facility] nurse for wound vac. Today, [facility] nurse inspected bottom and noted pt to have an area that needs attention. Also reporting SOB and low sats the next few days. Started abx today for current UTI. 77-year-old woman presenting to the emergency department with a number of concerns. Has been noted to have a sore near the anus as I understand it that is leaking some fluid and blood. Receives treatments for wound with wound nurse managing a wound VAC. Unsure if also having GI bleed. Has otherwise been constipated. Would maybe have 3 maybe 4 bowel movements a week. Has over the last week not really had a bowel movement other than maybe very small hard something. At 1 point did try a suppository but no enema as concern of keeping this wound clean. Has taken docusate sodium and looks like bisacodyl. Last week was experiencing some chills, without measured fever, and shortness of breath. Did not have a chest x-ray done. Is following up for some vocal cord paralysis. Is not known to have aspiration. Is having a sense of nausea in her upper abdomen. Abdomen also generally feels rather full, bloated. Was diagnosed recently with a urinary tract infection. Has an indwelling Cristobal. Has paraplegia and resulting neurogenic bladder. Rheumatoid arthritis. <Jeremiah Reich MD - Last Filed: 08/28/23 02:47> Related Data Home medications: Home Medications Medication Instructions Recorded Confirmed lactobacillus combination no.4 3 3,000 mmu cells PO DAILY 07/10/22 08/25/23 billion cell capsule (Probiotic) multivitamin (Daily Multi-Vitamin 1 tab PO DAILY 07/10/22 08/25/23 tablet) bisacodyl 10 mg rectal suppository 10 mg VA BID PRN 01/13/23 08/25/23 (Gentle Laxative (bisacodyl)) nystatin 100,000 unit/gram topical 1 applic topical BID PRN 01/13/23 08/25/23 powder zinc sulfate 50 mg zinc (220 mg) 100 mg PO DAILY 01/13/23 08/25/23 capsule (Orazinc) acetaminophen 650 mg 1,300 mg PO BID PRN 05/30/23 08/25/23 tablet,extended release (8 Hour Pain Reliever) ascorbate calcium (vitamin C) 500 500 mg PO QDAY 05/30/23 08/25/23 mg tablet omeprazole 20 mg capsule,delayed 20 mg PO BID 08/27/23 release Previous Rx's Medication Instructions Recorded furosemide 20 mg tablet 20 mg PO QAM #90 tabs 06/24/23 gabapentin 300 mg capsule 300 mg PO TID #270 caps 06/24/23 prednisone 5 mg tablet 10 mg (2 x 5 mg) PO DAILY #180 tabs 06/24/23 oxycodone 5 mg tablet 5 mg PO TID PRN pain #90 tabs 08/07/23 ciprofloxacin HCl 500 mg tablet 500 mg PO BID #14 tabs 08/25/23 <Jeremiah Reich MD - Last Filed: 08/28/23 02:47> Allergies/adverse reactions: Allergies Allergy/AdvReac Type Severity Reaction Status Date / Time vancomycin Allergy Severe Hives Verified 08/27/23 17:41 piperacillin Allergy Intermediate Rash Verified 08/27/23 17:41 tazobactam Allergy Intermediate Rash Verified 08/27/23 17:41 <Jeremiah Reich MD - Last Filed: 08/28/23 02:47> Review of Systems Status of ROS: Reports: 6 or more systems reviewed and unremarkable except as noted in History and below <Jeremiah Reich MD - Last Filed: 08/28/23 02:47> [facility] Medical History: Medical History 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, stage 4 ?L89.44 - Pressure ulcer of contiguous site of back, buttock and hip, stage 4 (ICD-10) Rheumatoid arthritis ?M06.9 - Rheumatoid arthritis, unspecified (ICD-10) HTN (hypertension) ?I10 - Essential (primary) hypertension (ICD-10) Intravenous infiltration ?T80.1XXA - Vascular complications following infusion, transfusion and therapeutic injection, initial encounter (ICD-10) Cristobal catheter in place ?Z97.8 - Presence of other specified devices (ICD-10) Chronic, continuous use of opioids ?F11.90 - Opioid use, unspecified, uncomplicated (ICD-10) Sleep apnea ?G47.30 - Sleep apnea, unspecified (ICD-10) Paraplegia ?G82.20 - Paraplegia, unspecified (ICD-10) Acute on chronic anemia ?D64.9 - Anemia, unspecified (ICD-10) Chronic steroid use Anemia ?D64.9 - Anemia, unspecified (ICD-10) Diarrhea ?R19.7 - Diarrhea, unspecified (ICD-10) Osteomyelitis ?M86.9 - Osteomyelitis, unspecified (ICD-10) Paraplegia ?G82.20 - Paraplegia, unspecified (ICD-10) Chronic pain ?G89.29 - Other chronic pain (ICD-10) Tubular adenoma of colon ?D12.6 - Benign neoplasm of colon, unspecified (ICD-10) 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 - Acute transverse myelitis in demyelinating disease of central nervous system (ICD-10) Septic shock ?A41.9 - Sepsis, unspecified organism (ICD-10) ?R65.21 - Severe sepsis with septic shock (ICD-10) Recurrent urinary tract infection ?N39.0 - Urinary tract infection, site not specified (ICD-10) Osteoporosis ?M81.0 - Age-related osteoporosis without current pathological fracture (ICD-10) Neurogenic bladder ?N31.9 - Neuromuscular dysfunction of bladder, unspecified (ICD-10) History of methicillin resistant Staphylococcus aureus infection ?Z86.14 - Personal history of Methicillin resistant Staphylococcus aureus infection (ICD-10) <Jeremiah Reich MD - Last Filed: 08/28/23 02:47> Surgical History: Surgical History Status post debridement ?Z98.890 - Other specified postprocedural states (ICD-10) <Jeremiah Reich MD - Last Filed: 08/28/23 02:47> Social History: Social History Narrative: Resident of [facility] where she is getting wound care and rehabilitation related to her right buttock/ischial ulcer. Code status is full. She does not smoke or drink alcohol What is your current living situation?: I presently have a place to live Problems where you live: no known problems In the past 12 months, utilities in danger of being shut off: no In past 12 months, lack of transportation kept you from medical appts, meetings, work, or getting things needed for daily living: no In the past 12 mos, have been you worried that your food would run out before you had money to buy more?: never true In the past 12 mos, the food you bought just didn't last and you didn't have money to buy more?: never true Highest level of school completed/degree received: decline to answer Smoking Status: Never smoker Do you use any of these nicotine containing products: None and E-Cigarettes Second hand tobacco smoke exposure: No How often do you have a drink containing alcohol: never How often do you have six or more drinks on one occasion: Never AUDIT-C Alcohol total score: 0 Non-prescribed substance use: denies use Caffeine: No How often does anyone, including family, friends and others, physically hurt you: decline to answer How often does anyone, including family, friends and others, insult or talk down to you: decline to answer How often does anyone, including family, friends and others, threaten you with harm: decline to answer How often does anyone, including family, friends and others, scream or curse at you: decline to answer Little interest or pleasure in doing things: several days Feeling down, depressed, or hopeless: several days service: No <Jeremiah Reich MD - Last Filed: 08/28/23 02:47> Exam Narrative: Exam Narrative: Very pleasant. Does have laryngitic voice that fatigues quickly. Otherwise breathing easily. Lungs other than some clearing basilar crepitus appear to be clear. Oropharynx is moist. Cranial nerves 2-12 intact GCS of 15. Oxygen saturations are 90-93% as we are talking. Apparently oxygenates in the low mid 90s normally. Abdomen is soft. Bowel sounds are present. Diffusely mildly tender. No masses able to be palpated. Indwelling Cristobal noted to have clear yellow urine. Lower extremities are atrophic. Needs assistance to sit or turn. Will return with nursing to evaluate perianal area. With re-examination it she does have what appears an ulceration about 1.5 cm in diameter at the 3 o'clock position. There is a quarter-size defect palpable in the low perianal area that I think is contiguous with the above. There is a wound VAC in place at the right buttock without inflammatory changes surrounding. There is whitish/darnell liquid stool or purulence draining from the anus. She did have a well-formed small 2 inch stool in her Attends <Jeremiah Reich MD - Last Filed: 08/28/23 02:47> Const: Vital Signs, click to edit/add: Vital Signs - 24 hr 08/27/23 17:43 08/27/23 19:47 08/27/23 20:11 Temperature 98.5 F Pulse Rate 108 H Pulse Rate [Pulse Oximeter] 105 H Respiratory Rate 18 Blood Pressure Blood Pressure [Ri ght Upper Arm] 137/69 Pulse Oximetry 91 95 93 Oxygen Delivery Me thod Room Air Oxygen Flow Rate 08/27/23 20:30 08/27/23 20:31 08/27/23 21:00 Temperature Pulse Rate 104 H 103 H 106 H Pulse Rate [Pulse Oximeter] Respiratory Rate Blood Pressure 148/75 H Blood Pressure [Ri ght Upper Arm] Pulse Oximetry 90 90 89 Oxygen Delivery Me thod Oxygen Flow Rate 08/27/23 21:01 08/27/23 21:30 08/27/23 21:31 Temperature Pulse Rate 108 H 106 H 107 H Pulse Rate [Pulse Oximeter] Respiratory Rate Blood Pressure 162/80 H 151/80 H Blood Pressure [Ri ght Upper Arm] Pulse Oximetry 92 87 L 87 L Oxygen Delivery Me thod Oxygen Flow Rate 08/27/23 22:00 08/27/23 22:01 08/27/23 22:30 Temperature Pulse Rate 108 H 107 H 107 H Pulse Rate [Pulse Oximeter] Respiratory Rate Blood Pressure 141/72 H Blood Pressure [Ri ght Upper Arm] Pulse Oximetry 88 92 90 Oxygen Delivery Me thod Oxygen Flow Rate 08/27/23 22:31 08/27/23 23:00 08/27/23 23:01 Temperature Pulse Rate 109 H 105 H 107 H Pulse Rate [Pulse Oximeter] Respiratory Rate Blood Pressure 153/77 H 161/78 H Blood Pressure [Ri ght Upper Arm] Pulse Oximetry 86 L 92 90 Oxygen Delivery Me thod Oxygen Flow Rate 08/27/23 23:30 08/27/23 23:31 08/28/23 00:00 Temperature Pulse Rate 107 H 107 H 111 H Pulse Rate [Pulse Oximeter] Respiratory Rate Blood Pressure 154/76 H Blood Pressure [Ri ght Upper Arm] Pulse Oximetry 89 86 L 85 L Oxygen Delivery Me thod Oxygen Flow Rate 08/28/23 00:01 08/28/23 00:01 08/28/23 00:13 Temperature Pulse Rate 111 H 111 H Pulse Rate [Pulse Oximeter] Respiratory Rate Blood Pressure 156/80 H 156/80 H Blood Pressure [Ri ght Upper Arm] Pulse Oximetry 89 89 94 Oxygen Delivery Me thod Nasal Cannula Oxygen Flow Rate 2 08/28/23 00:31 08/28/23 00:32 08/28/23 00:32 Temperature 98.6 F Pulse Rate 108 H 111 H Pulse Rate [Pulse Oximeter] Respiratory Rate Blood Pressure 155/90 H Blood Pressure [Ri ght Upper Arm] Pulse Oximetry 93 94 95 Oxygen Delivery Me thod Nasal Cannula Oxygen Flow Rate 2 08/28/23 01:02 08/28/23 01:31 08/28/23 02:01 Temperature Pulse Rate 107 H 111 H 113 H Pulse Rate [Pulse Oximeter] Respiratory Rate 16 16 16 Blood Pressure 146/80 H 153/71 H 147/67 H Blood Pressure [Ri ght Upper Arm] Pulse Oximetry 99 99 99 Oxygen Delivery Me thod Oxygen Flow Rate 08/28/23 02:31 08/28/23 03:01 08/28/23 03:31 Temperature Pulse Rate 114 H 105 H 114 H Pulse Rate [Pulse Oximeter] Respiratory Rate 16 16 16 Blood Pressure 139/59 L 135/63 133/64 Blood Pressure [Ri ght Upper Arm] Pulse Oximetry 98 99 96 Oxygen Delivery Me thod Oxygen Flow Rate 08/28/23 04:01 08/28/23 04:31 08/28/23 05:01 Temperature Pulse Rate 112 H 113 H 113 H Pulse Rate [Pulse Oximeter] Respiratory Rate 16 16 16 Blood Pressure 126/63 126/59 L 125/60 Blood Pressure [Ri ght Upper Arm] Pulse Oximetry 94 95 97 Oxygen Delivery Me thod Oxygen Flow Rate 08/28/23 05:31 08/28/23 06:01 Temperature Pulse Rate 114 H 112 H Pulse Rate [Pulse Oximeter] Respiratory Rate 16 16 Blood Pressure 118/57 L 119/58 L Blood Pressure [Ri ght Upper Arm] Pulse Oximetry 96 97 Oxygen Delivery Me thod Oxygen Flow Rate <Jeremiah Reich MD - Last Filed: 08/28/23 02:47> Vital Signs, click to edit/add: Vital Signs - 24 hr 08/27/23 17:43 08/27/23 19:47 08/27/23 20:11 Temperature 98.5 F Pulse Rate 108 H Pulse Rate [Pulse Oximeter] 105 H Respiratory Rate 18 Blood Pressure Blood Pressure [Ri ght Upper Arm] 137/69 Pulse Oximetry 91 95 93 Oxygen Delivery Me thod Room Air Oxygen Flow Rate 08/27/23 20:30 08/27/23 20:31 08/27/23 21:00 Temperature Pulse Rate 104 H 103 H 106 H Pulse Rate [Pulse Oximeter] Respiratory Rate Blood Pressure 148/75 H Blood Pressure [Ri ght Upper Arm] Pulse Oximetry 90 90 89 Oxygen Delivery Me thod Oxygen Flow Rate 08/27/23 21:01 08/27/23 21:30 08/27/23 21:31 Temperature Pulse Rate 108 H 106 H 107 H Pulse Rate [Pulse Oximeter] Respiratory Rate Blood Pressure 162/80 H 151/80 H Blood Pressure [Ri ght Upper Arm] Pulse Oximetry 92 87 L 87 L Oxygen Delivery Me thod Oxygen Flow Rate 08/27/23 22:00 08/27/23 22:01 08/27/23 22:30 Temperature Pulse Rate 108 H 107 H 107 H Pulse Rate [Pulse Oximeter] Respiratory Rate Blood Pressure 141/72 H Blood Pressure [Ri ght Upper Arm] Pulse Oximetry 88 92 90 Oxygen Delivery Me thod Oxygen Flow Rate 08/27/23 22:31 08/27/23 23:00 08/27/23 23:01 Temperature Pulse Rate 109 H 105 H 107 H Pulse Rate [Pulse Oximeter] Respiratory Rate Blood Pressure 153/77 H 161/78 H Blood Pressure [Ri ght Upper Arm] Pulse Oximetry 86 L 92 90 Oxygen Delivery Me thod Oxygen Flow Rate 08/27/23 23:30 08/27/23 23:31 08/28/23 00:00 Temperature Pulse Rate 107 H 107 H 111 H Pulse Rate [Pulse Oximeter] Respiratory Rate Blood Pressure 154/76 H Blood Pressure [Ri ght Upper Arm] Pulse Oximetry 89 86 L 85 L Oxygen Delivery Me thod Oxygen Flow Rate 08/28/23 00:01 08/28/23 00:01 08/28/23 00:13 Temperature Pulse Rate 111 H 111 H Pulse Rate [Pulse Oximeter] Respiratory Rate Blood Pressure 156/80 H 156/80 H Blood Pressure [Ri ght Upper Arm] Pulse Oximetry 89 89 94 Oxygen Delivery Me thod Nasal Cannula Oxygen Flow Rate 2 08/28/23 00:31 08/28/23 00:32 08/28/23 00:32 Temperature 98.6 F Pulse Rate 108 H 111 H Pulse Rate [Pulse Oximeter] Respiratory Rate Blood Pressure 155/90 H Blood Pressure [Ri ght Upper Arm] Pulse Oximetry 93 94 95 Oxygen Delivery Me thod Nasal Cannula Oxygen Flow Rate 2 08/28/23 01:02 08/28/23 01:31 08/28/23 02:01 Temperature Pulse Rate 107 H 111 H 113 H Pulse Rate [Pulse Oximeter] Respiratory Rate 16 16 16 Blood Pressure 146/80 H 153/71 H 147/67 H Blood Pressure [Ri ght Upper Arm] Pulse Oximetry 99 99 99 Oxygen Delivery Me thod Oxygen Flow Rate 08/28/23 02:31 08/28/23 03:01 08/28/23 03:31 Temperature Pulse Rate 114 H 105 H 114 H Pulse Rate [Pulse Oximeter] Respiratory Rate 16 16 16 Blood Pressure 139/59 L 135/63 133/64 Blood Pressure [Ri ght Upper Arm] Pulse Oximetry 98 99 96 Oxygen Delivery Me thod Oxygen Flow Rate 08/28/23 04:01 08/28/23 04:31 08/28/23 05:01 Temperature Pulse Rate 112 H 113 H 113 H Pulse Rate [Pulse Oximeter] Respiratory Rate 16 16 16 Blood Pressure 126/63 126/59 L 125/60 Blood Pressure [Ri ght Upper Arm] Pulse Oximetry 94 95 97 Oxygen Delivery Me thod Oxygen Flow Rate 08/28/23 05:31 08/28/23 06:01 Temperature Pulse Rate 114 H 112 H Pulse Rate [Pulse Oximeter] Respiratory Rate 16 16 Blood Pressure 118/57 L 119/58 L Blood Pressure [Ri ght Upper Arm] Pulse Oximetry 96 97 Oxygen Delivery Me thod Oxygen Flow Rate <Kevin Fabian MD - Last Filed: 08/28/23 07:12> Documenting provider has reviewed patient's vital signs: yes <Jeremiah Reich MD - Last Filed: 08/28/23 02:47> Course Course ED Course: 08/28/2023 2:41 a.m. sign-out from prior provider. Prolonged emergency department course, see prior provider note for complete history and physical. Briefly patient comes in with concern for constipation, also has chronic wound and has a wound VAC, wound care nose thought the wound looked worse today considered the emergency department. On exam, patient is afebrile, tachycardic, mildly hypertensive. She has a wound of the perianal area not involving the area on the wound VAC, area around the wound VAC looks okay. No focal abdominal tenderness. Labs demonstrate white blood cell count [id number], normal lactate, reassuring venous blood gas with no hypercarbia or acidosis, creatinine 0.2 and does have low anion gap. CRP is elevated and CT scan demonstrates grade for right ischial decubitus ulcer with underlying ischial osteomyelitis, also probable grade 3 decubitus ulcer. 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 [place] [facility] was consulted and recommends transfer. Patient has received ertapenem, last dose August 27 at 10:48 p.m. DVT prophylaxis with Lovenox with will be initiated as well as ulcer prophylaxis with Protonix IV. Patient will need to be transferred, no beds available at any facility. Patient had been wait listed at [facility] but did due to concern for Bertrand's they declined this. Patient will need to go to [facility], or [facility]. Will monitor in the ED. <Kevin Fabian MD - Last Filed: 08/28/23 07:12> Reevaluation(s) Time of Reevaluation #1: 06:26 <Kevin Fabian MD - Last Filed: 08/28/23 07:12> Reevaluation #1: Spoke with Dr. Gallegos, general surgery. She is able to take the patient to OR for debridement but patient will need to be transferred post-operatively. Contacted [facility], cannot accept at this time but recommends transfer after debridement by contacting [facility] and asking to be connected to hyperbaric team. Contacted [facility], no beds. <Kevin Fabian MD - Last Filed: 08/28/23 07:12> Time of Reevaluation #2: 07:12 <Kevin Fabian MD - Last Filed: 08/28/23 07:12> Reevaluation #2: Care discussed with Britt Bhat, hospitalist. <Kevin Fabian MD - Last Filed: 08/28/23 07:12> Vital Signs Vital signs: Initial Vital Signs Temperature 98.5 F 08/27/23 17:43 Temperature Source Temporal Artery Scan 08/27/23 17:43 Pulse Rate 105 H 08/27/23 17:43 Pulse Rhythm Regular 08/27/23 17:43 Pulse Strength 3+ Normal 08/27/23 17:43 Respiratory Rate 18 08/27/23 17:43 Blood Pressure 137/69 08/27/23 17:43 Blood Pressure Mean 91 08/27/23 17:43 Blood Pressure Position High-Fowlers 08/27/23 17:43 Pulse Oximetry 91 08/27/23 17:43 Oxygen Delivery Method Room Air 08/27/23 17:43 Vital Signs Temperature 98.5 F 08/27/23 17:43 Pulse Rate 105 H 08/27/23 17:43 Respiratory Rate 18 08/27/23 17:43 Blood Pressure 137/69 08/27/23 17:43 Pulse Oximetry 91 08/27/23 17:43 Oxygen Delivery Method Room Air 08/27/23 17:43 Temperature 98.6 F 08/28/23 00:32 Pulse Rate 112 H 08/28/23 06:01 Respiratory Rate 16 08/28/23 06:01 Blood Pressure 119/58 L 08/28/23 06:01 Pulse Oximetry 97 08/28/23 06:01 Oxygen Delivery Method Nasal Cannula 08/28/23 00:32 Oxygen Flow Rate 2 08/28/23 00:32 <Jeremiah Reich MD - Last Filed: 08/28/23 02:47> Initial Vital Signs Temperature 98.5 F 08/27/23 17:43 Temperature Source Temporal Artery Scan 08/27/23 17:43 Pulse Rate 105 H 08/27/23 17:43 Pulse Rhythm Regular 08/27/23 17:43 Pulse Strength 3+ Normal 08/27/23 17:43 Respiratory Rate 18 08/27/23 17:43 Blood Pressure 137/69 08/27/23 17:43 Blood Pressure Mean 91 08/27/23 17:43 Blood Pressure Position High-Fowlers 08/27/23 17:43 Pulse Oximetry 91 08/27/23 17:43 Oxygen Delivery Method Room Air 08/27/23 17:43 Vital Signs Temperature 98.5 F 08/27/23 17:43 Pulse Rate 105 H 08/27/23 17:43 Respiratory Rate 18 08/27/23 17:43 Blood Pressure 137/69 08/27/23 17:43 Pulse Oximetry 91 08/27/23 17:43 Oxygen Delivery Method Room Air 08/27/23 17:43 Temperature 98.6 F 08/28/23 00:32 Pulse Rate 112 H 08/28/23 06:01 Respiratory Rate 16 08/28/23 06:01 Blood Pressure 119/58 L 08/28/23 06:01 Pulse Oximetry 97 08/28/23 06:01 Oxygen Delivery Method Nasal Cannula 08/28/23 00:32 Oxygen Flow Rate 2 08/28/23 00:32 <Kevin Fabian MD - Last Filed: 08/28/23 07:12> Medications Administered Medications: Generic Name Dose Route Start Last Admin Trade Name Freq PRN Reason Stop Dose Admin Enoxaparin Sodium 30 mg 08/28/23 02:45 08/28/23 03:02 Enoxaparin 30 Mg/0.3ml Inj SUBCUT 30 mg Q12H ESTELA Administration Discontinued Medications Generic Name Dose Route Start Last Admin Trade Name Freq PRN Reason Stop Dose Admin Hydromorphone HCl 0.5 mg 08/28/23 00:13 08/28/23 00:30 Hydromorphone 0.5 Mg/0.5 Ml Inj IVP 08/28/23 00:14 0.5 mg ONCE ONE Administration Sodium Chloride 1,000 mls @ 1,000 mls/hr 08/27/23 18:51 08/27/23 20:30 0.9 % Sodium Chloride 1000 Ml IV 08/27/23 19:50 Infused .Q1H ONE Infusion Ertapenem 1 gm/ Sodium 100 mls @ 200 mls/hr 08/27/23 22:48 08/27/23 23:59 Chloride IVPB 08/27/23 22:49 Infused ONCE ONE Infusion Lactated Ringer's 1,000 mls @ 1,000 mls/hr 08/27/23 22:49 08/28/23 03:12 Lactated Ringers 1000 Ml IV 08/27/23 23:48 Infused .Q1H ONE Infusion Pantoprazole Sodium 40 mg 08/28/23 02:36 08/28/23 03:02 Pantoprazole Sodium 40 Mg Inj IVP 08/28/23 02:37 40 mg ONCE ONE Administration <Jeremiah Reich MD - Last Filed: 08/28/23 02:47> Generic Name Dose Route Start Last Admin Trade Name Freq PRN Reason Stop Dose Admin Enoxaparin Sodium 30 mg 08/28/23 02:45 08/28/23 03:02 Enoxaparin 30 Mg/0.3ml Inj SUBCUT 30 mg Q12H ESTELA Administration Discontinued Medications Generic Name Dose Route Start Last Admin Trade Name Freq PRN Reason Stop Dose Admin Hydromorphone HCl 0.5 mg 08/28/23 00:13 08/28/23 00:30 Hydromorphone 0.5 Mg/0.5 Ml Inj IVP 08/28/23 00:14 0.5 mg ONCE ONE Administration Sodium Chloride 1,000 mls @ 1,000 mls/hr 08/27/23 18:51 08/27/23 20:30 0.9 % Sodium Chloride 1000 Ml IV 08/27/23 19:50 Infused .Q1H ONE Infusion Ertapenem 1 gm/ Sodium 100 mls @ 200 mls/hr 08/27/23 22:48 08/27/23 23:59 Chloride IVPB 08/27/23 22:49 Infused ONCE ONE Infusion Lactated Ringer's 1,000 mls @ 1,000 mls/hr 08/27/23 22:49 08/28/23 03:12 Lactated Ringers 1000 Ml IV 08/27/23 23:48 Infused .Q1H ONE Infusion Pantoprazole Sodium 40 mg 08/28/23 02:36 08/28/23 03:02 Pantoprazole Sodium 40 Mg Inj IVP 08/28/23 02:37 40 mg ONCE ONE Administration <Kevin Fabian MD - Last Filed: 08/28/23 07:12> Medical Decision Making MDM Narrative Medical decision making narrative: Return to examine as above. Around this time also aware that white count is over 27,000. With this and findings on anal rectal perineal exam, imaging will changed to abdomen pelvis CT. Concern of perirectal abscess. She tells me that has osteomyelitis in the right hip but no longer treating it. 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 Does not appear clearly septic. Did however arrive slightly tachycardic. Generally has elevated pulse per her report and review of record shows usually in the mid 90s. Review of records also generally in the low 90s for oxygen saturations. So the may have aspirated or have other pneumonia. I doubt urine is the source of this white count. I do not think she is obstructed but distressing is this constipation she has been describing. Chest x-ray reviewed by me. Seem similar to prior. Radiology over-read below FINDINGS: No pneumothorax or pleural effusion. Mild bibasilar scarring or atelectasis. Lungs are otherwise clear. Stable cardiac and mediastinal contours. Upper abdomen and osseous structures as imaged show no acute abnormality. Bae rods, as before. IMPRESSION: No evidence of acute cardiopulmonary disease. I do review images of the IV contrasted CT abdomen pelvis. Appears to have a small abscess in the low very rectal area. There is some fat stranding in the area as well. Radiology over-read as below CT abdomen and pelvis acquired with 71 cc Isovue 370 IV contrast. COMPARISON: October 30, 2022 FINDINGS: Lower chest: Mitral annular calcifications. Linear atelectasis at the left lung base. Liver: Unremarkable. Spleen: Unremarkable. Pancreas: Unremarkable. Gallbladder and bile ducts: S/p cholecystectomy. Adrenal glands: Unremarkable. Kidneys: 2 stones measuring up to 1.1 cm in the right renal pelvis. No hydronephrosis. No left-sided renal stone. GI tract: Unremarkable. Appendix is normal. Vascular structures: Aortoiliac calcifications. Infrarenal abdominal aortic aneurysm measuring 2.2 cm. Lymph nodes: Unremarkable. Miscellaneous: Diffuse muscular atrophy consistent with paraplegia. There is a right decubitus ulcer extending to the ischium. There are sclerotic changes in the right ischium. There is a 1.8 x 0.6 cm air and fluid collection directly adjacent to the right side of the rectum, best seen on image 142 series 2. There is air within the subcutaneous fat lateral to the rectum and distal sigmoid colon. There is some mild fat stranding around the right side of the distal sigmoid colon. No intraperitoneal/extraperitoneal air. Likely left-sided decubitus ulcer posterior to the ischium with subcutaneous fat stranding. The left ischium appears normal. There is no soft tissue gas in this region. Pelvic Organs: Cristobal catheter decompresses the urinary bladder. Bones: Posterior surgical rods in the thoracolumbar spine. S shaped scoliosis. 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 Probable grade 3 left-sided ischial decubitus ulcer. Correlate with physical exam. Possible small abscess directly adjacent to the right side of the rectum. Soft tissue air within the subcutaneous fat lateral to the rectum and distal sigmoid colon. There is no extraperitoneal/intraperitoneal air. There is some mild fat stranding lateral to the right sigmoid colon. Recommend surgery consultation for evaluation of the pressure wounds. Right nephrolithiasis without hydronephrosis. 2.2 cm infrarenal abdominal aortic aneurysm. Posterior surgical rods in the thoracolumbar spine. Diffuse muscular atrophy consistent paraplegia. White count is noted above is rather elevated. CRP of 13.9. Urinalysis is unremarkable. Initial lactate was normal. I have discussed this case in reviewed images with our general surgeon as well as hospitalist. 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 Recommendations are to try to find a hospitalization elsewhere. Due to allergies have treated with ertapenem. Continued tachycardia. Still afebrile on reassessment. Have exhausted calls to tertiary care centers. Most complaint of generalized abdominal pain which she attributes to constipation. Perhaps an enema would be helpful though concern of actually being able to hold fluid in. 0238 -- handing off change of shift <Jeremiah Reich MD - Last Filed: 08/28/23 02:47> Lab Data Lab results reviewed: Yes I reviewed the patient's lab results <Jeremiah Reich MD - Last Filed: 08/28/23 02:47> Labs: Lab Results 08/27/23 08/27/23 08/28/23 Range/Units 19:28 19:39 01:10 WBC 27.35 H* (4.50-11.00) K/uL RBC 5.00 (4.00-5.20) m/uL Hgb 13.1 (12.0-16.0) gm/dL Hct 43.4 (33.0-51.0) % MCV 87 (80-100) fL MCH 26 (26-34) pg MCHC 30 L (32-36) gm/dL RDW Coeff of Lynette 16.3 H (11.5-15.5) % Plt Count 418 (140-440) K/uL Neut % (Auto) 86.4 H (42.0-72.0) % Lymph % (Auto) 5.0 L (20-44) % [place] % (Auto) 5.1 (0.0-11.0) % Eos % (Auto) 0.1 (0.0-7.0) % Baso % (Auto) 0.1 (0.0-3.0) % Neut # (Auto) 23.60 H (1.7-7.0) K/uL Lymph # (Auto) 1.40 (0.90-2.90) K/uL [place] # (Auto) 1.40 H (0.00-0.90) K/UL Eos # (Auto) 0.00 (0.00-0.50) K/uL Baso # (Auto) 0.00 (0.00-0.30) K/uL Abs Immat Gran (auto) 0.90 H (0.00-0.30) K/uL Imm/Tot Granulo (auto) 3.3 % Diff Slide Review Acceptable Review (Acceptable) VBG pH 7.464 H (7.32-7.43) VBG pCO2 52 H (40-50) mmHG VBG pO2 47.5 H (25-47) mmHG VBG HCO3 37 H (21-28) mmol/L Sodium 137 139 (135-149) mmol/L Potassium 3.9 3.7 (3.6-5.1) mmol/L Chloride 99 102 (96-114) mmol/L Carbon Dioxide 36 H 35 H (20-32) mmol/L Anion Gap 2 L 2 L (7-15) mEq/L BUN 27 22 (7-30) mg/dL Creatinine 0.2 L 0.2 L (0.5-1.5) mg/dL Estimated Creat Clear 34.38 34.38 Estimated GFR 121 121 ml/min Glucose 150 H 94 (60-115) mg/dL Lactate 1.7 1.1 (0.5-1.9) mmol/L Calcium 8.4 8.2 L (8.4-10.6) mg/dL Magnesium 1.9 (1.5-2.6) mg/dL Total Bilirubin 0.5 (0.1-1.5) mg/dL Direct Bilirubin 0.1 (0.0-0.5) mg/dL AST 21 (12-35) U/L ALT 23 (4-35) U/L Alkaline Phosphatase 208 H (40-150) U/L C-Reactive Protein 13.9 H (0.5-1.0) mg/dL Total Protein 5.3 L (6.0-8.3) g/dL Albumin 2.8 L (3.3-5.0) g/dL Urine Color Yellow (Yellow) Urine Appearance Slightly Cloudy A (Clear) Urine pH 5.0 (5.0-8.5) Ur Specific [place] 1.020 (1.000-1.030) Urine Protein Negative (Negative) Urine Glucose (UA) Negative (Negative) Urine Ketones Negative (Negative) Urine Blood Negative (Negative) Urine Nitrite Negative (Negative) Urine Bilirubin Negative (Negative) Urine Urobilinogen 0.2 (0.2-1.0) Ur Leukocyte Esterase Trace A (Negative) Urine RBC 0-2 (0-2) Urine WBC 0-2 (0-5) Ur Squamous Epith Cells Few (None-Few) Urine Bacteria None (None) SARS-CoV-2 (PCR) Negative SARS-CoV-2 (Negative) Influenza Type A (PCR) Negative PCR FLU A (Negative) Influenza Type B (PCR) Negative PCR FLU B (Negative) RSV (PCR) Negative PCR RSV (Negative) <Jeremiah Reich MD - Last Filed: 08/28/23 02:47> Lab Results 08/27/23 08/27/23 08/28/23 Range/Units 19:28 19:39 01:10 WBC 27.35 H* (4.50-11.00) K/uL RBC 5.00 (4.00-5.20) m/uL Hgb 13.1 (12.0-16.0) gm/dL Hct 43.4 (33.0-51.0) % MCV 87 (80-100) fL MCH 26 (26-34) pg MCHC 30 L (32-36) gm/dL RDW Coeff of Lynette 16.3 H (11.5-15.5) % Plt Count 418 (140-440) K/uL Neut % (Auto) 86.4 H (42.0-72.0) % Lymph % (Auto) 5.0 L (20-44) % [place] % (Auto) 5.1 (0.0-11.0) % Eos % (Auto) 0.1 (0.0-7.0) % Baso % (Auto) 0.1 (0.0-3.0) % Neut # (Auto) 23.60 H (1.7-7.0) K/uL Lymph # (Auto) 1.40 (0.90-2.90) K/uL [place] # (Auto) 1.40 H (0.00-0.90) K/UL Eos # (Auto) 0.00 (0.00-0.50) K/uL Baso # (Auto) 0.00 (0.00-0.30) K/uL Abs Immat Gran (auto) 0.90 H (0.00-0.30) K/uL Imm/Tot Granulo (auto) 3.3 % Diff Slide Review Acceptable Review (Acceptable) VBG pH 7.464 H (7.32-7.43) VBG pCO2 52 H (40-50) mmHG VBG pO2 47.5 H (25-47) mmHG VBG HCO3 37 H (21-28) mmol/L Sodium 137 139 (135-149) mmol/L Potassium 3.9 3.7 (3.6-5.1) mmol/L Chloride 99 102 (96-114) mmol/L Carbon Dioxide 36 H 35 H (20-32) mmol/L Anion Gap 2 L 2 L (7-15) mEq/L BUN 27 22 (7-30) mg/dL Creatinine 0.2 L 0.2 L (0.5-1.5) mg/dL Estimated Creat Clear 34.38 34.38 Estimated GFR 121 121 ml/min Glucose 150 H 94 (60-115) mg/dL Lactate 1.7 1.1 (0.5-1.9) mmol/L Calcium 8.4 8.2 L (8.4-10.6) mg/dL Magnesium 1.9 (1.5-2.6) mg/dL Total Bilirubin 0.5 (0.1-1.5) mg/dL Direct Bilirubin 0.1 (0.0-0.5) mg/dL AST 21 (12-35) U/L ALT 23 (4-35) U/L Alkaline Phosphatase 208 H (40-150) U/L C-Reactive Protein 13.9 H (0.5-1.0) mg/dL Total Protein 5.3 L (6.0-8.3) g/dL Albumin 2.8 L (3.3-5.0) g/dL Urine Color Yellow (Yellow) Urine Appearance Slightly Cloudy A (Clear) Urine pH 5.0 (5.0-8.5) Ur Specific [place] 1.020 (1.000-1.030) Urine Protein Negative (Negative) Urine Glucose (UA) Negative (Negative) Urine Ketones Negative (Negative) Urine Blood Negative (Negative) Urine Nitrite Negative (Negative) Urine Bilirubin Negative (Negative) Urine Urobilinogen 0.2 (0.2-1.0) Ur Leukocyte Esterase Trace A (Negative) Urine RBC 0-2 (0-2) Urine WBC 0-2 (0-5) Ur Squamous Epith Cells Few (None-Few) Urine Bacteria None (None) SARS-CoV-2 (PCR) Negative SARS-CoV-2 (Negative) Influenza Type A (PCR) Negative PCR FLU A (Negative) Influenza Type B (PCR) Negative PCR FLU B (Negative) RSV (PCR) Negative PCR RSV (Negative) <Kevin Fabian MD - Last Filed: 08/28/23 07:12> Discharge Plan Discharge Clinical Impression: Aure-rectal abscess, Constipation, 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
--- NOTE | 2023-08-27 18:50 | CRLHL7_ITS ---
For Patients: As a result of the Cures Act, medical imaging exams and procedure reports are released immediately into your electronic medical record. You may view this report before your referring provider. If you have questions, please contact your health care provider. INDICATIONS: Mild hypoxia. Chills. TECHNIQUE: Chest 1 portable view. COMPARISON: Chest radiograph 01/13/2023. FINDINGS: No pneumothorax or pleural effusion. Mild bibasilar scarring or atelectasis. Lungs are otherwise clear. Stable cardiac and mediastinal contours. Upper abdomen and osseous structures as imaged show no acute abnormality. Bae rods, as before. IMPRESSION: No evidence of acute cardiopulmonary disease. Dictated by Quique Willard MD @ 08/27/2023 9:08:22 PM (Electronically Signed)
--- OUTSIDE RECORDS SUMMARY | 2023-08-27 19:13 | XMS_ITS | Continuity of Care Document ---
Author Name Unknown Organization [facility] Address [address] [place] [address] Phone Care Team Providers Care Tool Chaser Name Role Phone Susan Guerrero Unavailable Unavail [...] Available - Active Procedures Procedure Date Office/Outpatient Visit,[facility] 2013 Advance Directives Directive Yes / No Effective Date File Name No Information Encounters Encounter Description Practice Location Reason(s) For Visit Diagnoses Date Provider Providers Copied on Encounter [facility], [address], [place], [place], [id number], [place] tel:[phone] [facility] No Information 6 Pandiscio Susan. [facility], [address] [place] [address], [address], [place], [place], [id number], [place]. tel:[phone] Office/Outpat ient Visit,[facility], [address], [place], [address], [place] tel:[phone] [facility] No Information 4 Pandiscio Susan. [facility], [address], [address], [place], [place], [id number], [place]. tel:[phone] Referring Provider: Freida Doe, [facility] [address], [place], [address]. tel:[phone] Family History Family Member Type Diagnosis Age [...]
[2023-08-27] MEDS: 0.9 % SODIUM CHLORIDE 1000 ml 1,000 ML IV (19:20)
[2023-08-27 19:46] LABS: Basophils Percent Auto 0.1 % (0.0-3.0); Eosinophils Percent Auto 0.1 % (0.0-7.0); HCO3 VBG 37 mmol/L (21-28); Hematocrit 43.4 % (33.0-51.0); Hemoglobin* 13.1 gm/dL (12.0-16.0); Immature Granulocytes Pct Auto 3.3 %; Lactate* 1.7 mmol/L (0.5-1.9); Mean Corpuscular HGB Conc 30 gm/dL (32-36); Mean Corpuscular Hemoglobin 26 pg (26-34); Mean Corpuscular Volume 87 fL (80-100); Monocytes Percent Auto 5.1 % (0.0-11.0); Neutrophils Percent Auto 86.4 % (42.0-72.0); PCO2 VBG 52 mmHG (40-50); PO2 VBG 47.5 mmHG (25-47); Platelet Count* 418 K/uL (140-440); RDW Coefficient of Variation % 16.3 % (11.5-15.5); pH VBG 7.464 (7.32-7.43)
[2023-08-27 19:46] LABS: Appearance Urine Slightly Cloudy (Clear); Bilirubin Urine Negative (Negative); Blood Urine Negative (Negative); Color Urine Yellow (Yellow); Glucose Urine Negative (Negative); Ketones Urine Negative (Negative); Leukocyte Esterase Urine Trace (Negative); Nitrite Urine Negative (Negative); Protein Urine Negative (Negative); Urobilinogen Urine 0.2 (0.2-1.0)
[2023-08-27 19:48] LABS: Slide Review Reflex Yes; White Blood Count* 27.35 K/uL (4.50-11.00)
[2023-08-27 19:57] LABS: RBC Urine 0-2 (0-2); Squamous Epithelial Cell Urine Few (None-Few); WBC Urine 0-2 (0-5)
[2023-08-27 20:01] LABS: Chloride* 99 mmol/L (96-114)
[2023-08-27 20:02] LABS: Albumin* 2.8 g/dL (3.3-5.0); Potassium* 3.9 mmol/L (3.6-5.1); Sodium* 137 mmol/L (135-149)
[2023-08-27 20:04] LABS: Creatinine* 0.2 mg/dL (0.5-1.5); Est. Creatinine Clearance* 34.38; Estimated Glomerular Filt Rate 121 ml/min
--- NOTE | 2023-08-27 20:04 | CRLHL7_ITS ---
For Patients: As a result of the Century Cures Act, medical imaging exams and procedure reports are released immediately into your electronic medical record. You may view this report before your referring provider. If you have questions, please contact your health care provider. INDICATION: Hypoxia, chills, perianal wound, leukocytosis, paraplegia TECHNIQUE: CT abdomen and pelvis acquired with 71 cc Isovue 370 IV contrast. COMPARISON: October 30, 2022 FINDINGS: Lower chest: Mitral annular calcifications. Linear atelectasis at the left lung base. Liver: Unremarkable. Spleen: Unremarkable. Pancreas: Unremarkable. Gallbladder and bile ducts: S/p cholecystectomy. Adrenal glands: Unremarkable. Kidneys: 2 stones measuring up to 1.1 cm in the right renal pelvis. No hydronephrosis. No left-sided renal stone. GI tract: Unremarkable. Appendix is normal. Vascular structures: Aortoiliac calcifications. Infrarenal abdominal aortic aneurysm measuring 2.2 cm. Lymph nodes: Unremarkable. Miscellaneous: Diffuse muscular atrophy consistent with paraplegia. There is a right decubitus ulcer extending to the ischium. There are sclerotic changes in the right ischium. There is a 1.8 x 0.6 cm air and fluid collection directly adjacent to the right side of the rectum, best seen on image 142 series 2. There is air within the subcutaneous fat lateral to the rectum and distal sigmoid colon. There is some mild fat stranding around the right side of the distal sigmoid colon. No intraperitoneal/extraperitoneal air. Likely left-sided decubitus ulcer posterior to the ischium with subcutaneous fat stranding. The left ischium appears normal. There is no soft tissue gas in this region. Pelvic Organs: Cristobal catheter decompresses the urinary bladder. Bones: Posterior surgical rods in the thoracolumbar spine. S shaped scoliosis. 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 Probable grade 3 left-sided ischial decubitus ulcer. Correlate with physical exam. Possible small abscess directly adjacent to the right side of the rectum. Soft tissue air within the subcutaneous fat lateral to the rectum and distal sigmoid colon. There is no extraperitoneal/intraperitoneal air. There is some mild fat stranding lateral to the right sigmoid colon. Recommend surgery consultation for evaluation of the pressure wounds. Right nephrolithiasis without hydronephrosis. 2.2 cm infrarenal abdominal aortic aneurysm. Posterior surgical rods in the thoracolumbar spine. Diffuse muscular atrophy consistent paraplegia. Please note that all CT scans at this facility use dose modulation, iterative reconstruction, and/or weight-based dosing when appropriate to reduce radiation dose to as low as reasonably achievable. Dictated by Nicole Crocker MD @ 08/27/2023 9:33:17 PM (Electronically Signed)
[2023-08-27 20:05] LABS: Alanine Aminotransferase* 23 U/L (4-35); Alkaline Phosphatase* 208 U/L (40-150); Anion Gap 2 mEq/L (7-15); Aspartate Amino Transferase* 21 U/L (12-35); Bilirubin Direct* 0.1 mg/dL (0.0-0.5); Bilirubin Total* 0.5 mg/dL (0.1-1.5); Blood Urea Nitrogen* 27 mg/dL (7-30); Calcium* 8.4 mg/dL (8.4-10.6); Carbon Dioxide* 36 mmol/L (20-32); Glucose* 150 mg/dL (60-115); Total Protein* 5.3 g/dL (6.0-8.3)
[2023-08-27 20:06] LABS: Magnesium* 1.9 mg/dL (1.5-2.6)
[2023-08-27 20:11] LABS: Slide Review Acceptable Review (Acceptable)
[2023-08-27 20:19] LABS: C Reactive Protein* 13.9 mg/dL (0.5-1.0)
[2023-08-27 20:22] LABS: PCR FLU A Negative PCR FLU A (Negative); PCR FLU B Negative PCR FLU B (Negative); PCR RSV Negative PCR RSV (Negative)
[2023-08-27 20:28] LABS: SARS PCR* Negative SARS-CoV-2 (Negative)
[2023-08-27] MEDS: LACTATED RINGERS 1000 ML 1,000 ML 300 ML IV (23:00)
[2023-08-27] MEDS: ERTAPENEM 1 GM in 0.9 % SODIUM CHLORIDE Mini-bag 100 ML IVPB (23:00)
[2023-08-28] VITALS (65 sets, daily range): BP systolic 107–156; BP diastolic 46–99; PULSE 89–114; RESP 16–20; TEMP 36.8–37.7; O2SAT 85–100
[2023-08-28] MEDS: HYDROmorphone 0.5 mg/0.5 ml inj IVP (00:30)
[2023-08-28 01:28] LABS: Lactate* 1.1 mmol/L (0.5-1.9)
[2023-08-28 01:41] LABS: Chloride* 102 mmol/L (96-114); Potassium* 3.7 mmol/L (3.6-5.1); Sodium* 139 mmol/L (135-149)
[2023-08-28 01:44] LABS: Anion Gap 2 mEq/L (7-15); Blood Urea Nitrogen* 22 mg/dL (7-30); Carbon Dioxide* 35 mmol/L (20-32); Creatinine* 0.2 mg/dL (0.5-1.5); Est. Creatinine Clearance* 34.38; Estimated Glomerular Filt Rate 121 ml/min; Glucose* 94 mg/dL (60-115)
[2023-08-28 01:45] LABS: Calcium* 8.2 mg/dL (8.4-10.6)
[2023-08-28] MEDS: ENOXAPARIN 30 MG/0.3ML INJ SUBCUT (03:02)
[2023-08-28] MEDS: PANTOPRAZOLE SODIUM 40 MG INJ IVP (03:02)
--- NOTE | 2023-08-28 07:54 | P.GSCN_ITS ---
History of Present Illness Consult details Date Seen: 08/28/23 Consult date: 08/28/23 Narrative: Patient is a 77-year-old female who presents to the emergency department with concerns for a wound and drainage on her right buttock. Her history is that she has a history of paraplegia and a chronic right decubitus ulcer with possible osteomyelitis. This [facility]. She states that she has been feeling ill for about 1 week. She came in to see her primary and was diagnosed with the UTI. She has been on antibiotics for 2 days. Her regular nurse came to change her wound VAC and noted a new area that was sore and draining which prompted her to come in to be evaluated. She states that she has been very fatigued for the last week. She has been sleeping most of the day. She states it is hard to stay awake. She has had chills but no fevers. She states that she has been very constipated for the last week. She describes this is simply not having a bowel movement. She does take a stool softener and Dulcolax to help stimulate her to have a bowel movement. 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 She is on chronic steroids and takes 10 mg of prednisone daily. She also takes oxycodone 5 mg approx imately 4 times a day for her sacral wound pain. She has an indwelling Cristobal. [facility] Medical History (Updated 08/28/23 @ 08:01 by Maria D Gallegos MD) Chronic, continuous use of opioids ?F11.90 - Opioid use, unspecified, uncomplicated (ICD-10) Chronic steroid use 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, stage 4 ?L89.44 - Pressure ulcer of contiguous site of back, buttock and hip, stage 4 (ICD-10) Rheumatoid arthritis ?M06.9 - Rheumatoid arthritis, unspecified (ICD-10) HTN (hypertension) ?I10 - Essential (primary) hypertension (ICD-10) Intravenous infiltration ?T80.1XXA - Vascular complications following infusion, transfusion and therapeutic injection, initial encounter (ICD-10) Cristobal catheter in place ?Z97.8 - Presence of other specified devices (ICD-10) Sleep apnea ?G47.30 - Sleep apnea, unspecified (ICD-10) Paraplegia ?G82.20 - Paraplegia, unspecified (ICD-10) Acute on chronic anemia ?D64.9 - Anemia, unspecified (ICD-10) Anemia ?D64.9 - Anemia, unspecified (ICD-10) Diarrhea ?R19.7 - Diarrhea, unspecified (ICD-10) Osteomyelitis ?M86.9 - Osteomyelitis, unspecified (ICD-10) Paraplegia ?G82.20 - Paraplegia, unspecified (ICD-10) Chronic pain ?G89.29 - Other chronic pain (ICD-10) Tubular adenoma of colon ?D12.6 - Benign neoplasm of colon, unspecified (ICD-10) 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 - Acute transverse myelitis in demyelinating disease of central nervous system (ICD-10) Septic shock ?A41.9 - Sepsis, unspecified organism (ICD-10) ?R65.21 - Severe sepsis with septic shock (ICD-10) Recurrent urinary tract infection ?N39.0 - Urinary tract infection, site not specified (ICD-10) Osteoporosis ?M81.0 - Age-related osteoporosis without current pathological fracture (ICD- 10) Neurogenic bladder ?N31.9 - Neuromuscular dysfunction of bladder, unspecified (ICD-10) History of methicillin resistant Staphylococcus aureus infection ?Z86.14 - Personal history of Methicillin resistant Staphylococcus aureus infection (ICD-10) Surgical History Status post debridement ?Z98.890 - Other specified postprocedural states (ICD-10) Social History Narrative: Resident of [facility] where she is getting wound care and rehabilitation related to her right buttock/ischial ulcer. Code status is full. She does not smoke or drink alcohol What is your current living situation?: I presently have a place to live Problems where you live: no known problems In the past 12 months, utilities in danger of being shut off: no In past 12 months, lack of transportation kept you from medical appts, meetings, work, or getting things needed for daily living: no In the past 12 mos, have been you worried that your food would run out before you had money to buy more?: never true In the past 12 mos, the food you bought just didn't last and you didn't have money to buy more?: never true Highest level of school completed/degree received: decline to answer Smoking Status: Never smoker Do you use any of these nicotine containing products: None and E-Cigarettes Second hand tobacco smoke exposure: No How often do you have a drink containing alcohol: never How often do you have six or more drinks on one occasion: Never AUDIT-C Alcohol total score: 0 Non-prescribed substance use: denies use Caffeine: No How often does anyone, including family, friends and others, physically hurt you : decline to answer How often does anyone, including family, friends and others, insult or talk down to you: decline to answer How often does anyone, including family, friends and others, threaten you with harm: decline to answer How often does anyone, including family, friends and others, scream or curse at you: decline to answer Little interest or pleasure in doing things: several days Feeling down, depressed, or hopeless: several days service: No Meds Home Medications and Allergies Home Medications Medication Instructions Recorded Confirmed Type lactobacillus combination no.4 3 3,000 mmu cells PO DAILY 07/10/22 08/25/23 History billion cell capsule (Probiotic) multivitamin (Daily Multi-Vitamin 1 tab PO DAILY 07/10/22 08/25/23 History tablet) bisacodyl 10 mg rectal suppository 10 mg AK BID PRN 01/13/23 08/25/23 History (Gentle Laxative (bisacodyl)) nystatin 100,000 unit/gram topical 1 applic topical BID PRN 01/13/23 08/25/23 History powder zinc sulfate 50 mg zinc (220 mg) 100 mg PO DAILY 01/13/23 08/25/23 History capsule (Orazinc) acetaminophen 650 mg 1,300 mg PO BID PRN 05/30/23 08/25/23 History tablet,extended release (8 Hour Pain Reliever) ascorbate calcium (vitamin C) 500 500 mg PO QDAY 05/30/23 08/25/23 History mg tablet omeprazole 20 mg capsule,delayed 20 mg PO BID 08/27/23 History release Allergies Allergy/AdvReac Type Severity Reaction Status Date / Time vancomycin Allergy Severe Hives Verified 08/27/23 17:41 piperacillin Allergy Intermediate Rash Verified 08/27/23 17:41 tazobactam Allergy Intermediate Rash Verified 08/27/23 17:41 Exam Narrative: Exam Narrative: General appearance: Alert, cooperative, and in no distress though she is mildly flushed. Eyes: PERRLA, eye lids clear, and sclera white HENT Obvious hoarseness to voice noted. Head: Normocephalic Ears: External ears normal Pulmonary: Breathing is nonlabored though when she talks she does seem mildly short of breath. Cardiovascular Heart: Tachycardic Extremities: warm and well perfused Rectal: Wound VAC is in place on the right buttock. There is a small amount of redness and tenderness on the right buttock in the perianal area. There is soft stool draining from the anus. Musculoskeletal: Extremities: Upper: Both upper extremities have normal joint range of motion and intact strength. Lower: Both lower extremities have normal joint range of motion and intact strength. Skin: Normal skin color, texture, and turgor. Neurologic: No focal deficits Psychiatric: Alert, oriented, cooperative, normal affect. Const: Vital Signs, click to edit/add: Vital Signs - 24 hr 08/27/23 17:43 08/27/23 19:47 08/27/23 20:11 Temperature 98.5 F Pulse Rate 108 H Pulse Rate [Pulse Oximeter] 105 H Respiratory Rate 18 Blood Pressure Blood Pressure [Ri ght Upper Arm] 137/69 Pulse Oximetry 91 95 93 Oxygen Delivery Me thod Room Air Oxygen Flow Rate 08/27/23 20:30 08/27/23 20:31 08/27/23 21:00 Temperature Pulse Rate 104 H 103 H 106 H Pulse Rate [Pulse Oximeter] Respiratory Rate Blood Pressure 148/75 H Blood Pressure [Ri ght Upper Arm] Pulse Oximetry 90 90 89 Oxygen Delivery Me thod Oxygen Flow Rate 08/27/23 21:01 08/27/23 21:30 08/27/23 21:31 Temperature Pulse Rate 108 H 106 H 107 H Pulse Rate [Pulse Oximeter] Respiratory Rate Blood Pressure 162/80 H 151/80 H Blood Pressure [Ri ght Upper Arm] Pulse Oximetry 92 87 L 87 L Oxygen Delivery Me thod Oxygen Flow Rate 08/27/23 22:00 08/27/23 22:01 08/27/23 22:30 Temperature Pulse Rate 108 H 107 H 107 H Pulse Rate [Pulse Oximeter] Respiratory Rate Blood Pressure 141/72 H Blood Pressure [Ri ght Upper Arm] Pulse Oximetry 88 92 90 Oxygen Delivery Me thod Oxygen Flow Rate 08/27/23 22:31 08/27/23 23:00 08/27/23 23:01 Temperature Pulse Rate 109 H 105 H 107 H Pulse Rate [Pulse Oximeter] Respiratory Rate Blood Pressure 153/77 H 161/78 H Blood Pressure [Ri ght Upper Arm] Pulse Oximetry 86 L 92 90 Oxygen Delivery Me thod Oxygen Flow Rate 08/27/23 23:30 08/27/23 23:31 08/28/23 00:00 Temperature Pulse Rate 107 H 107 H 111 H Pulse Rate [Pulse Oximeter] Respiratory Rate Blood Pressure 154/76 H Blood Pressure [Ri ght Upper Arm] Pulse Oximetry 89 86 L 85 L Oxygen Delivery Me thod Oxygen Flow Rate 08/28/23 00:01 08/28/23 00:01 08/28/23 00:13 Temperature Pulse Rate 111 H 111 H Pulse Rate [Pulse Oximeter] Respiratory Rate Blood Pressure 156/80 H 156/80 H Blood Pressure [Ri ght Upper Arm] Pulse Oximetry 89 89 94 Oxygen Delivery Me thod Nasal Cannula Oxygen Flow Rate 2 08/28/23 00:31 08/28/23 00:32 08/28/23 00:32 Temperature 98.6 F Pulse Rate 108 H 111 H Pulse Rate [Pulse Oximeter] Respiratory Rate Blood Pressure 155/90 H Blood Pressure [Ri ght Upper Arm] Pulse Oximetry 93 94 95 Oxygen Delivery Me thod Nasal Cannula Oxygen Flow Rate 2 08/28/23 01:02 08/28/23 01:31 08/28/23 02:01 Temperature Pulse Rate 107 H 111 H 113 H Pulse Rate [Pulse Oximeter] Respiratory Rate 16 16 16 Blood Pressure 146/80 H 153/71 H 147/67 H Blood Pressure [Ri ght Upper Arm] Pulse Oximetry 99 99 99 Oxygen Delivery Me thod Oxygen Flow Rate 08/28/23 02:31 08/28/23 03:01 08/28/23 03:31 Temperature Pulse Rate 114 H 105 H 114 H Pulse Rate [Pulse Oximeter] Respiratory Rate 16 16 16 Blood Pressure 139/59 L 135/63 133/64 Blood Pressure [Ri ght Upper Arm] Pulse Oximetry 98 99 96 Oxygen Delivery Me thod Oxygen Flow Rate 08/28/23 04:01 08/28/23 04:31 08/28/23 05:01 Temperature Pulse Rate 112 H 113 H 113 H Pulse Rate [Pulse Oximeter] Respiratory Rate 16 16 16 Blood Pressure 126/63 126/59 L 125/60 Blood Pressure [Ri ght Upper Arm] Pulse Oximetry 94 95 97 Oxygen Delivery Me thod Oxygen Flow Rate 08/28/23 05:31 08/28/23 06:01 Temperature Pulse Rate 114 H 112 H Pulse Rate [Pulse Oximeter] Respiratory Rate 16 16 Blood Pressure 118/57 L 119/58 L Blood Pressure [Ri ght Upper Arm] Pulse Oximetry 96 97 Oxygen Delivery Me thod Oxygen Flow Rate Results Labs Labs: Abnormal lab results 08/27/23 08/27/23 08/28/23 Range/Units 19:28 19:39 01:10 WBC 27.35 H* (4.50-11.00) K/uL MCHC 30 L (32-36) gm/dL RDW Coeff of Lynette 16.3 H (11.5-15.5) % Neut % (Auto) 86.4 H (42.0-72.0) % Lymph % (Auto) 5.0 L (20-44) % Neut # (Auto) 23.60 H (1.7-7.0) K/uL [place] # (Auto) 1.40 H (0.00-0.90) K/UL Abs Immat Gran (auto) 0.90 H (0.00-0.30) K/uL VBG pH 7.464 H (7.32-7.43) VBG pCO2 52 H (40-50) mmHG VBG pO2 47.5 H (25-47) mmHG VBG HCO3 37 H (21-28) mmol/L Carbon Dioxide 36 H 35 H (20-32) mmol/L Anion Gap 2 L 2 L (7-15) mEq/L Creatinine 0.2 L 0.2 L (0.5-1.5) mg/dL Glucose 150 H (60-115) mg/dL Calcium 8.2 L (8.4-10.6) mg/dL Alkaline Phosphatase 208 H (40-150) U/L C-Reactive Protein 13.9 H (0.5-1.0) mg/dL Total Protein 5.3 L (6.0-8.3) g/dL Albumin 2.8 L (3.3-5.0) g/dL Urine Appearance Slightly Cloudy A (Clear) Ur Leukocyte Esterase Trace A (Negative) Diabetes panel 08/27/23 08/28/23 Range/Units 19:39 01:10 Sodium 137 139 (135-149) mmol/L Potassium 3.9 3.7 (3.6-5.1) mmol/L Chloride 99 102 (96-114) mmol/L Carbon Dioxide 36 H 35 H (20-32) mmol/L BUN 27 22 (7-30) mg/dL Creatinine 0.2 L 0.2 L (0.5-1.5) mg/dL Glucose 150 H 94 (60-115) mg/dL Calcium 8.4 8.2 L (8.4-10.6) mg/dL AST 21 (12-35) U/L ALT 23 (4-35) U/L Alkaline Phosphatase 208 H (40-150) U/L Total Protein 5.3 L (6.0-8.3) g/dL Albumin 2.8 L (3.3-5.0) g/dL Calcium panel 08/27/23 08/28/23 Range/Units 19:39 01:10 Calcium 8.4 8.2 L (8.4-10.6) mg/dL Albumin 2.8 L (3.3-5.0) g/dL Pituitary panel 08/27/23 08/28/23 Range/Units 19:39 01:10 Sodium 137 139 (135-149) mmol/L Potassium 3.9 3.7 (3.6-5.1) mmol/L Chloride 99 102 (96-114) mmol/L Carbon Dioxide 36 H 35 H (20-32) mmol/L BUN 27 22 (7-30) mg/dL Creatinine 0.2 L 0.2 L (0.5-1.5) mg/dL Glucose 150 H 94 (60-115) mg/dL Calcium 8.4 8.2 L (8.4-10.6) mg/dL Adrenal panel 08/27/23 08/28/23 Range/Units 19:39 01:10 Sodium 137 139 (135-149) mmol/L Potassium 3.9 3.7 (3.6-5.1) mmol/L Chloride 99 102 (96-114) mmol/L Carbon Dioxide 36 H 35 H (20-32) mmol/L BUN 27 22 (7-30) mg/dL Creatinine 0.2 L 0.2 L (0.5-1.5) mg/dL Glucose 150 H 94 (60-115) mg/dL Calcium 8.4 8.2 L (8.4-10.6) mg/dL Total Bilirubin 0.5 (0.1-1.5) mg/dL AST 21 (12-35) U/L ALT 23 (4-35) U/L Alkaline Phosphatase 208 H (40-150) U/L Total Protein 5.3 L (6.0-8.3) g/dL Albumin 2.8 L (3.3-5.0) g/dL All other labs normal. Imaging Abdomen CT scan report/results: report reviewed and image reviewed Additional studies: IMPRESSION: Grade 4 right-sided ischial decubitus ulcer with findings concerning for ischial osteomyelitis. Probable grade 3 left-sided ischial decubitus ulcer. Correlate with physical exam. Possible small abscess directly adjacent to the right side of the rectum. Soft tissue air within the subcutaneous fat lateral to the rectum and distal sigmoid colon. There is no extraperitoneal/intraperitoneal air. There is some mild fat stranding lateral to the right sigmoid colon. Recommend surgery consultation for evaluation of the pressure wounds. Right nephrolithiasis without hydronephrosis. 2.2 cm infrarenal abdominal aortic aneurysm. Posterior surgical rods in the thoracolumbar spine. Diffuse muscular atrophy consistent paraplegia. Please note that all CT scans at this facility use dose modulation, iterative reconstruction, and/or weight-based dosing when appropriate to reduce radiation dose to as low as reasonably achievable. Dictated by Nicole Crocker MD @ 08/27/2023 9:33:17 PM Assessment and Plan Assessment and plan (1) Decubitus ulcers: Status: Acute (2) Aure-rectal abscess: Status: Acute (3) UTI (urinary tract infection): Status: Acute (4) Hoarseness or changing voice: Status: Acute (5) Rheumatoid arthritis: Problem comment: on daily prednisone Status: Acute (6) Paraplegia: Problem comment: since age 6; muscle atrophy (chronic) bilaterally Status: Acute (7) Chronic, continuous use of opioids: Status: Acute (8) Chronic steroid use: Problem comment: - for RA Status: Acute Plan This is a 77-year-old female with paraplegia decubitus ulcers and now perianal abscess with concern for necrotizing soft tissue infection. Given the CT findings and her overall picture I recommend transfer to tertiary care facility. There are concerns about her airway given her vocal cord paralysis and respiratory weakness and inability to extubate as well. We have tried without success to transfer her to a tertiary care center. Therefore, I do think that she needs emergent debridement. I explained to her that sometimes if there is a necrotizing soft tissue infection that she will require multiple debridements. If she has a perianal fistula then I may place a seton on as well. I explained that this is not necessarily permanent but explained the rationale behind this. If I am able, I will also perform a bone biopsy of her sacral wound given that it appears as though she may have osteomyelitis changes on CT scan. She is agreeable to proceed and we will plan on surgery this morning. She understands that if we are unable to extubate her or she requires ongoing ICU level care she will need to transfer to tertiary care hospital.
--- OUTSIDE RECORDS SUMMARY | 2023-08-28 08:42 | XMS_ITS | Continuity of Care Document ---
Author Name Unknown Organization [facility] Address [address] [place] [address] Phone Care Team Providers Care High School Music Instructor Name Role Phone Susan Guerrero Unavailable Unavail [...] Available - Active Procedures Procedure Date Office/Outpatient Visit,[facility] 2013 Advance Directives Directive Yes / No Effective Date File Name No Information Encounters Encounter Description Practice Location Reason(s) For Visit Diagnoses Date Provider Providers Copied on Encounter [facility], [address], [place], [place], [id number], [place] tel:[phone] [facility] No Information 6 Pandiscio Susan. [facility], [address] [place] [address], [address], [place], [place], [id number], [place]. tel:[phone] Office/Outpat ient Visit,[facility] [place] [facility], [address], [place], [address], [place] tel:[phone] [facility] No Information 4 Pandiscio Susan. [facility], [address], [address], [place], [place], [address], [place]. tel:[phone] Referring Provider: Freida Doe, [facility] [address], [place], [address]. tel:[phone] Family History Family Member Type Diagnosis Age [...]
--- OUTSIDE RECORDS SUMMARY | 2023-08-28 08:42 | XMS_ITS | Continuity of Care Document ---
Author Name Unknown Organization [facility] Address [address] [place] [address] Phone Care Team Providers Care Quality Intern Name Role Phone Susan Guerrero Unavailable Unavail [...] Available - Active Procedures Procedure Date Office/Outpatient Visit,[facility] 2013 Advance Directives Directive Yes / No Effective Date File Name No Information Encounters Encounter Description Practice Location Reason(s) For Visit Diagnoses Date Provider Providers Copied on Encounter [facility], [address], [place], [place], [id number], [place] tel:[phone] [facility] No Information 6 Pandiscio Susan. [facility], [address] [place] [address], [address], [place], [place], [id number], [place]. tel:[phone] Office/Outpat ient Visit,[facility] [place] [facility], [address], [place], [address], [place] tel:[phone] [facility] No Information 4 Pandiscio Susan. [facility], [address], [address], [place], [place], [address], [place]. tel:[phone] Referring Provider: Freida Doe, [facility] [address], [place], [address]. tel:[phone] Family History Family Member Type Diagnosis Age At Onset No Information Payers Payer name Insurance type Covered republican ID Authoriza tion(s) No Information Social History [...]
--- OUTSIDE RECORDS SUMMARY | 2023-08-28 09:28 | XMS_ITS | Continuity of Care Document ---
Author Name Unknown Organization [facility] Address [address] [place] [address] Phone Care Team Providers Care Skein Drier Name Role Phone Susan Guerrero Unavailable Unavail [...] Available - Active Procedures Procedure Date Office/Outpatient Visit,[facility] 2013 Advance Directives Directive Yes / No Effective Date File Name No Information Encounters Encounter Description Practice Location Reason(s) For Visit Diagnoses Date Provider Providers Copied on Encounter [facility], [address], [place], [place], [id number], [place] tel:[phone] [facility] No Information 6 Pandiscio Susan. [facility], [address] [place] [address], [address], [place], [place], [id number], [place]. tel:[phone] Office/Outpat ient Visit,[facility], [address], [place], [address], [place] tel:[phone] [facility] No Information 4 Pandiscio Susan. [facility], [address], [address], [place], [place], [address], [place]. tel:[phone] Referring Provider: Freida Doe, [facility] [address], [place], [address]. tel:[phone] Family History Family Member Type Diagnosis Age [...]
--- OUTSIDE RECORDS SUMMARY | 2023-08-28 09:33 | XMS_ITS | Continuity of Care Document ---
Author Name Unknown Organization [facility] Address [address] [place] [address] Phone Care Team Providers Care Surgery Specialist Name Role Phone Susan Guerrero Unavailable Unavail able Allergies, Adverse Reactions, Alerts Substance Reaction Status Criticality vancomycin Active No Information Medications Medication Instructions Dosage Effective Dates (start - stop) Status Comments MIRALAX (unknown strength) Not Available - Active DULCOLAX STOOL SOFTENER (unknown strength) Not Available - Active HYDROCODONE-ACETAMINOPH EN (unknown strength) Not Available - Active TRAZODONE HCL (unknown strength) Not Available - Active VALU-MASON DECONGESTANT (unknown strength) Not Available - Active PREDNISONE INTENSOL (unknown strength) Not Available - Active Procedures Procedure Date Office/Outpatient Visit,[facility] 2013 Advance Directives Directive Yes / No Effective Date File Name No Information Encounters Encounter Description Practice Location Reason(s) For Visit Diagnoses Date Provider Providers Copied on Encounter [facility], [address], [place], [place], [id number], [place] tel:[phone] [facility] No Information 6 Pandiscio Susan. [facility] [place], [address] [place] [address], [address], [place], [place], [id number], [place]. tel:[phone] Office/Outpat ient Visit,[facility] [place], [address], [place], [address], [place] tel:[phone] [facility] No Information 4 Pandiscio Susan. [facility], [address], [address], [place], [place], [address], [place]. tel:[phone] Referring Provider: Freida Doe, [facility] [address], [place], [address]. tel:[phone] Family History Family Member Type Diagnosis Age [...]
[2023-08-28] MEDS: LACTATED RINGERS 1000 ML 1,000 ML 100 ML IV (10:20)
--- NOTE | 2023-08-28 10:29 | P.ANES_ITS ---
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
--- NOTE | 2023-08-28 10:29 | W.ANESCHARGE ---
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
--- NOTE | 2023-08-28 10:37 | PM.GSPRC ---
Operative Note Pre-op diagnosis: 1. Perianal abscess with concern for necrotizing soft tissue infection 2. Chronic right ischial tuberosity wound with concern for osteomyelitis Post-op diagnosis: Same Type of Procedure: 1. Incision and drainage right perianal abscess with seton placement 2. Bone biopsy chronic right ischial tuberosity wound Indications: The patient is a 77-year-old female with a history of paraplegia and chronic right ischial tuberosity wound who presents with 1 week of feeling ill. Workup revealed a white blood cell count to 27,000 as well as a perianal abscess with gas extending up around the rectum and in the subcutaneous tissue laterally. There was concern for sepsis and necrotizing soft tissue infection. The patient also has a history of vocal cord paralysis and baseline hypoventilation there is some concern about extubation and therefore attempts were made to transfer her to a tertiary care hospital for ICU cares. Unfortunately no beds were available. Therefore I felt it necessary to urgently drain and debride her wound and if more intensive cares were needed we would again attempt to transfer the patient postoperatively. I also discussed that as long as I was able to avoid contamination of the ischial tuberosity wound that I would perform a bone biopsy as there was some concern for osteomyelitis seen on CT. Procedure Description: After discussing the risks and benefits of the procedure, the patient signed informed consent.? The operative site was marked and the patient was brought to the operating room and placed on the operating table in supine position.? Care was taken to pad the patient's pressure points.?? The patient was then intubated by anesthesia.??The patient was placed in the prone lizandro-knife position with care to pad her pressure points. The wound VAC was removed and the patient's ischial tuberosity wound was prepped. Perianal area was then again prepped. The ischial tuberosity wound was then covered sterilely away from the anal area. A time-out was then performed. I examined the patient's perianal area. She had purple violaceous skin which was just proximal to the dentate line. There was some skin necrosis and breakdown here as well. Just inside the anal canal with what appeared to be proximal to the sphincter complex, a large opening draining purulent material was encountered. 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 This tracked deep into the subcutaneous tissue along the rectum on the right side. Because of the concern for necrotizing infection and given the extensive area of gas noted on CT, I created an incision on the skin overlying the area of skin breakdown on the right lateral perianal skin and dissected into the subcutaneous fat. I made this was close to the anal canal as possible while staying outside of the sphincter muscles. The cavity was entered and a significant amount of purulence was encountered. This was completely evacuated. Retractors were placed in the wound and the wound base was examined. There did not appear to be a significant amount of necrotic fat deep in the wound. The wound was then irrigated copiously. Because of the fistula, I elected to place a seton. A vessel loop was then passed through the internal opening. This was secured with silk ties. Local anesthetic was injected into the skin and subcutaneous tissue around the wound. Vashe -soaked gauze was then placed in the wound. This was then covered and attention was turned to the ischial tuberosity wound. Our outer gloves were removed and new instruments were used. There was bone present in the wound base. Using a rongeur I took a superficial biopsy for culture, containing bone and granulation tissue and then I took a 2nd deeper biopsy as well for culture. Hemostasis was achieved with cautery. A small area of rolled over skin edge lateral was excised with cautery to facilitate wound VAC placement. The wound was then irrigated with Hibiclens. A wound VAC was then placed. The patient was then placed supine. She did have weak respiratory effort and necessitated a prolonged pressure support trial. After approximately 2 hours she was able to be extubated to face mask. At this time she appeared to be breathing at her normal baseline effort and was awake and conversant. ? The patient tolerated the procedure well. Findings: 1. Right-sided perianal abscess extending into the deep perirectal space with a fistula in the right lateral position. No significant subcutaneous necrosis. Seton placed 2. Exposed ischial tuberosity in patient's chronic wound. Biopsy taken Anesthesia: KAUSHAL Surgeon: Maria D Gallegos MD Estimated blood loss (mL): 5 Additional Specimen Information: 1. Abscess fluid for culture, perianal 2. Right ischial tuberosity bone biopsy superficial -for culture 3. Right ischial tuberosity bone biopsy deep - for culture Condition: stable Disposition: PACU Date of procedure: 08/28/23
--- NOTE | 2023-08-28 12:45 | P.IMHP_ITS ---
Hospitalist- H&P: HPI History of Present Illness Date Seen: 08/28/23 Chief complaint: Rectal pain/bleeding Narrative: Prerna Major is a 77 year old female paraplegic since childhood, neurogenic bladder with chronic indwelling Cristobal catheter, rheumatoid arthritis on chronic steroid, acute on chronic anemia, lower extremity edema on Lasix, PUD, chronic pressure ulcers is admitted to the CCU from the OR after emergent surgery taken from the ED for further management. Patient was seen in the ED for rectal pain x1 week with inability to have a bowel movement. Was seen by the wound care nurse today (who manages her wound VAC) with concerns for perirectal wound that is leaking some fluid and blood. Has been constipated, 3-4 bowel movements per week. Reports chills without measured fever, increased shortness of breath. Has a history of vocal cord paralysis. Reports upper abdominal fullness, mild nausea, no vomiting. Patient is seen post operatively, extubated just over an hour ago. Reports feeling pretty well. Pain currently managed. Denies headache or dizziness. Tolerating orals. Review of Systems Narrative: REVIEW OF SYSTEMS: Complete review of systems performed and negative unless otherwise stated in HPI or below. 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, stage 4 ?L89.44 - Pressure ulcer of contiguous site of back, buttock and hip, stage 4 (ICD-10) Rheumatoid arthritis ?M06.9 - Rheumatoid arthritis, unspecified (ICD-10) HTN (hypertension) ?I10 - Essential (primary) hypertension (ICD-10) Intravenous infiltration ?T80.1XXA - Vascular complications following infusion, transfusion and therapeutic injection, initial encounter (ICD-10) Cristobal catheter in place ?Z97.8 - Presence of other specified devices (ICD-10) Sleep apnea ?G47.30 - Sleep apnea, unspecified (ICD-10) Paraplegia ?G82.20 - Paraplegia, unspecified (ICD-10) Acute on chronic anemia ?D64.9 - Anemia, unspecified (ICD-10) Anemia ?D64.9 - Anemia, unspecified (ICD-10) Diarrhea ?R19.7 - Diarrhea, unspecified (ICD-10) Osteomyelitis ?M86.9 - Osteomyelitis, unspecified (ICD-10) Paraplegia ?G82.20 - Paraplegia, unspecified (ICD-10) Chronic pain ?G89.29 - Other chronic pain (ICD-10) Tubular adenoma of colon ?D12.6 - Benign neoplasm of colon, unspecified (ICD-10) 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 - Acute transverse myelitis in demyelinating disease of central nervo us system (ICD-10) Septic shock ?A41.9 - Sepsis, unspecified organism (ICD-10) ?R65.21 - Severe sepsis with septic shock (ICD-10) Recurrent urinary tract infection ?N39.0 - Urinary tract infection, site not specified (ICD-10) Osteoporosis ?M81.0 - Age-related osteoporosis without current pathological fracture (ICD- 10) History of methicillin resistant Staphylococcus aureus infection ?Z86.14 - Personal history of Methicillin resistant Staphylococcus aureus infection (ICD-10) Surgical History Status post debridement ?Z98.890 - Other specified postprocedural states (ICD-10) Social History Narrative: Resident of [facility] where she is getting wound care and rehabilitation related to her right buttock/ischial ulcer. Code status is full. She does not smoke or drink alcohol What is your current living situation?: I presently have a place to live Problems where you live: no known problems Problems where you live details: none currently lives with her daughter In the past 12 months, utilities in danger of being shut off: no In past 12 months, lack of transportation kept you from medical appts, meetings, work, or getting things needed for daily living: no In the past 12 mos, have been you worried that your food would run out before you had money to buy more?: never true In the past 12 mos, the food you bought just didn't last and you didn't have money to buy more?: never true Highest level of school completed/degree received: decline to answer Smoking Status: Never smoker Do you use any of these nicotine containing products: None and E-Cigarettes Second hand tobacco smoke exposure: No How often do you have a drink containing alcohol: never How often do you have six or more drinks on one occasion: Never AUDIT-C Alcohol total score: 0 Non-prescribed substance use: denies use Caffeine: No How often does anyone, including family, friends and others, physically hurt you : decline to answer How often does anyone, including family, friends and others, insult or talk down to you: decline to answer How often does anyone, including family, friends and others, threaten you with harm: decline to answer How often does anyone, including family, friends and others, scream or curse at you: decline to answer Little interest or pleasure in doing things: several days Feeling down, depressed, or hopeless: several days service: No Meds Home Medications and Allergies Home Medications Medication Instructions Recorded Confirmed Type lactobacillus combination no.4 3 3,000 mmu cells PO DAILY 07/10/22 08/25/23 History billion cell capsule (Probiotic) multivitamin (Daily Multi-Vitamin 1 tab PO DAILY 07/10/22 08/25/23 History tablet) bisacodyl 10 mg rectal suppository 10 mg ND BID PRN 01/13/23 08/25/23 History (Gentle Laxative (bisacodyl)) nystatin 100,000 unit/gram topical 1 applic topical BID PRN 01/13/23 08/25/23 History powder zinc sulfate 50 mg zinc (220 mg) 100 mg PO DAILY 01/13/23 08/25/23 History capsule (Orazinc) acetaminophen 650 mg 1,300 mg PO BID PRN 05/30/23 08/25/23 History tablet,extended release (8 Hour Pain Reliever) ascorbate calcium (vitamin C) 500 500 mg PO QDAY 05/30/23 08/25/23 History mg tablet omeprazole 20 mg capsule,delayed 20 mg PO BID 08/27/23 History release Allergies Allergy/AdvReac Type Severity Reaction Status Date / Time vancomycin Allergy Severe Hives Verified 08/27/23 17:41 piperacillin Allergy Intermediate Rash Verified 08/27/23 17:41 tazobactam Allergy Intermediate Rash Verified 08/27/23 17:41 Exam Narrative: Exam Narrative: PHYSICAL EXAM General: Sitting up in bed, very pleasant, conversant, NAD HEENT: Normocephalic, atraumatic, sclera white, EOMI, oral mucosa moist Cardiovascular: RRR, S1S2. No pitting edema Pulmonary: Mildlly diminished. No wheezes or rhonchi Abdominal: Soft, nondistended, NTTP Neurological: Alert, answering questions appropriately, cranial nerves intact, no focal findings Extremities: No gross joint deformity or swelling. AROMI. Neurovascularly intact Skin: Warm, dry. Postoperative wound dressings in place. Wound VAC in place. Const: Vital Signs, click to edit/add: Vital Signs - 24 hr 08/27/23 17:43 08/27/23 19:47 08/27/23 20:11 Temperature 98.5 F Pulse Rate 108 H Pulse Rate [Pulse Oximeter] 105 H Respiratory Rate 18 Blood Pressure Blood Pressure [Ri ght Arm] Blood Pressure [Ri ght Upper Arm] 137/69 Pulse Oximetry 91 95 93 Oxygen Delivery Me thod Room Air Oxygen Flow Rate 08/27/23 20:30 08/27/23 20:31 08/27/23 21:00 Temperature Pulse Rate 104 H 103 H 106 H Pulse Rate [Pulse Oximeter] Respiratory Rate Blood Pressure 148/75 H Blood Pressure [Ri ght Arm] Blood Pressure [Ri ght Upper Arm] Pulse Oximetry 90 90 89 Oxygen Delivery Me thod Oxygen Flow Rate 08/27/23 21:01 08/27/23 21:30 08/27/23 21:31 Temperature Pulse Rate 108 H 106 H 107 H Pulse Rate [Pulse Oximeter] Respiratory Rate Blood Pressure 162/80 H 151/80 H Blood Pressure [Ri ght Arm] Blood Pressure [Ri ght Upper Arm] Pulse Oximetry 92 87 L 87 L Oxygen Delivery Me thod Oxygen Flow Rate 08/27/23 22:00 08/27/23 22:01 08/27/23 22:30 Temperature Pulse Rate 108 H 107 H 107 H Pulse Rate [Pulse Oximeter] Respiratory Rate Blood Pressure 141/72 H Blood Pressure [Ri ght Arm] Blood Pressure [Ri ght Upper Arm] Pulse Oximetry 88 92 90 Oxygen Delivery Me thod Oxygen Flow Rate 08/27/23 22:31 08/27/23 23:00 08/27/23 23:01 Temperature Pulse Rate 109 H 105 H 107 H Pulse Rate [Pulse Oximeter] Respiratory Rate Blood Pressure 153/77 H 161/78 H Blood Pressure [Ri ght Arm] Blood Pressure [Ri ght Upper Arm] Pulse Oximetry 86 L 92 90 Oxygen Delivery Me thod Oxygen Flow Rate 08/27/23 23:30 08/27/23 23:31 08/28/23 00:00 Temperature Pulse Rate 107 H 107 H 111 H Pulse Rate [Pulse Oximeter] Respiratory Rate Blood Pressure 154/76 H Blood Pressure [Ri ght Arm] Blood Pressure [Ri ght Upper Arm] Pulse Oximetry 89 86 L 85 L Oxygen Delivery Me thod Oxygen Flow Rate 08/28/23 00:01 08/28/23 00:01 08/28/23 00:13 Temperature Pulse Rate 111 H 111 H Pulse Rate [Pulse Oximeter] Respiratory Rate Blood Pressure 156/80 H 156/80 H Blood Pressure [Ri ght Arm] Blood Pressure [Ri ght Upper Arm] Pulse Oximetry 89 89 94 Oxygen Delivery Me thod Nasal Cannula Oxygen Flow Rate 2 08/28/23 00:31 08/28/23 00:32 08/28/23 00:32 Temperature 98.6 F Pulse Rate 108 H 111 H Pulse Rate [Pulse Oximeter] Respiratory Rate Blood Pressure 155/90 H Blood Pressure [Ri ght Arm] Blood Pressure [Ri ght Upper Arm] Pulse Oximetry 93 94 95 Oxygen Delivery Me thod Nasal Cannula Oxygen Flow Rate 2 08/28/23 01:02 08/28/23 01:31 08/28/23 02:01 Temperature Pulse Rate 107 H 111 H 113 H Pulse Rate [Pulse Oximeter] Respiratory Rate 16 16 16 Blood Pressure 146/80 H 153/71 H 147/67 H Blood Pressure [Ri ght Arm] Blood Pressure [Ri ght Upper Arm] Pulse Oximetry 99 99 99 Oxygen Delivery Me thod Oxygen Flow Rate 08/28/23 02:31 08/28/23 03:01 08/28/23 03:31 Temperature Pulse Rate 114 H 105 H 114 H Pulse Rate [Pulse Oximeter] Respiratory Rate 16 16 16 Blood Pressure 139/59 L 135/63 133/64 Blood Pressure [Ri ght Arm] Blood Pressure [Ri ght Upper Arm] Pulse Oximetry 98 99 96 Oxygen Delivery Me thod Oxygen Flow Rate 08/28/23 04:01 08/28/23 04:31 08/28/23 05:01 Temperature Pulse Rate 112 H 113 H 113 H Pulse Rate [Pulse Oximeter] Respiratory Rate 16 16 16 Blood Pressure 126/63 126/59 L 125/60 Blood Pressure [Ri ght Arm] Blood Pressure [Ri ght Upper Arm] Pulse Oximetry 94 95 97 Oxygen Delivery Me thod Oxygen Flow Rate 08/28/23 05:31 08/28/23 06:01 08/28/23 09:28 Temperature Pulse Rate 114 H 112 H Pulse Rate [Pulse Oximeter] Respiratory Rate 16 16 Blood Pressure 118/57 L 119/58 L Blood Pressure [Ri ght Arm] Blood Pressure [Ri ght Upper Arm] Pulse Oximetry 96 97 96 Oxygen Delivery Me thod Oxygen Flow Rate 08/28/23 10:20 08/28/23 10:25 08/28/23 10:31 Temperature 99.9 F H Pulse Rate 96 98 99 Pulse Rate [Pulse Oximeter] Respiratory Rate 18 20 16 Blood Pressure 113/77 133/98 H 132/94 H Blood Pressure [Ri ght Arm] Blood Pressure [Ri ght Upper Arm] Pulse Oximetry 100 100 100 Oxygen Delivery Me thod Non Rebreather Mas k Oxygen Flow Rate 10 8 6 08/28/23 10:35 08/28/23 10:40 08/28/23 10:45 Temperature Pulse Rate 98 104 H 105 H Pulse Rate [Pulse Oximeter] Respiratory Rate 20 18 16 Blood Pressure 133/64 136/67 137/64 Blood Pressure [Ri ght Arm] Blood Pressure [Ri ght Upper Arm] Pulse Oximetry 100 97 96 Oxygen Delivery Me thod Nasal Cannula Oxygen Flow Rate 3 08/28/23 10:50 08/28/23 10:55 08/28/23 11:00 Temperature Pulse Rate 105 H 105 H 107 H Pulse Rate [Pulse Oximeter] Respiratory Rate 16 18 20 Blood Pressure 136/64 139/69 143/65 H Blood Pressure [Ri ght Arm] Blood Pressure [Ri ght Upper Arm] Pulse Oximetry 98 97 96 Oxygen Delivery Me thod Oxygen Flow Rate 08/28/23 11:05 08/28/23 11:10 08/28/23 11:15 Temperature Pulse Rate 105 H 108 H 107 H Pulse Rate [Pulse Oximeter] Respiratory Rate 20 18 16 Blood Pressure 143/67 H 127/70 142/76 H Blood Pressure [Ri ght Arm] Blood Pressure [Ri ght Upper Arm] Pulse Oximetry 97 96 97 Oxygen Delivery Me thod Oxygen Flow Rate 08/28/23 11:20 08/28/23 11:25 08/28/23 11:30 Temperature 99.9 F H Pulse Rate 105 H 105 H 103 H Pulse Rate [Pulse Oximeter] Respiratory Rate 16 19 20 Blood Pressure 146/73 H 148/69 H 124/65 Blood Pressure [Ri ght Arm] Blood Pressure [Ri ght Upper Arm] Pulse Oximetry 97 97 98 Oxygen Delivery Me thod Nasal Cannula Oxygen Flow Rate 3 08/28/23 11:44 Temperature Pulse Rate 108 H Pulse Rate [Pulse Oximeter] Respiratory Rate 18 Blood Pressure Blood Pressure [Ri ght Arm] 140/61 H Blood Pressure [Ri ght Upper Arm] Pulse Oximetry Oxygen Delivery Me thod Nasal Cannula Oxygen Flow Rate 2 Hospitalist - H&P: Result Labs Labs: Short CBC 08/27/23 Range/Units 19:39 WBC 27.35 H* (4.50-11.00) K/uL Hgb 13.1 (12.0-16.0) gm/dL Hct 43.4 (33.0-51.0) % Plt Count 418 (140-440) K/uL BMP 08/27/23 08/28/23 19:39 01:10 Sodium 137 139 Potassium 3.9 3.7 Chloride 99 102 Carbon Dioxide 36 H 35 H BUN 27 22 Creatinine 0.2 L 0.2 L Glucose 150 H 94 Calcium 8.4 8.2 L Liver Function 08/27/23 Range/Units 19:39 Total Bilirubin 0.5 (0.1-1.5) mg/dL Direct Bilirubin 0.1 (0.0-0.5) mg/dL AST 21 (12-35) U/L ALT 23 (4-35) U/L Alkaline Phosphatase 208 H (40-150) U/L Albumin 2.8 L (3.3-5.0) g/dL Urine 08/27/23 Range/Units 19:28 Urine Color Yellow (Yellow) Urine Appearance Slightly Cloudy A (Clear) Urine pH 5.0 (5.0-8.5) Ur Specific [place] 1.020 (1.000-1.030) Urine Protein Negative (Negative) Urine Glucose (UA) Negative (Negative) Assessment and Plan Assessment and plan (1) Aure-rectal abscess: Problem comment: -Perianal abscess with concern for necrotizing soft tissue infection. Low-grade fever, leukocytosis, lactate 1.1. Continue to trend. 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 Gallegos -wound cultures pending -Infectious Disease consulted recommending ceftriaxone IV 2 g Q 24 hours, Flagyl 500 mg p.o. q.8 hours, daptomycin (empiric coverage for enterococcus) 500 mg IV Q 24 hours. If found to be soft tissue infection, continue antibiotics for 2 weeks from most recent I&D. If osteomyelitis etiology, Infectious Disease service requests follow-up for further recommendations -daily CK while on Dapto -wound care recommendations per General Surgery -pain management to include scheduled Tylenol, p.r.n. Vistaril, ketorolac (1 time dose prn). 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 Continue wound cares. Pending further recommendations general surgery Status: Chronic (3) Rheumatoid arthritis: Problem comment: -on chronic daily prednisone 10 mg, continue Status: Acute (4) HTN (hypertension): Problem comment: -not currently on antihypertension medication, monitor post operatively Status: Resolved (5) Lower extremity edema: Problem comment: -continue home lasix. Monitor for fluid overload post operatively. Status: Chronic (6) Sleep apnea: Problem comment: -Clinically suspected, no previous evaluation or sleep study -encourage postoperative pulmonary hygiene, Aerobika Status: Suspected (7) Paraplegia: Problem comment: -since age 6; muscle atrophy (chronic) bilaterally Status: Chronic (8) Neurogenic bladder: Problem comment: -chronic indwelling catheter. Was started on Cipro for recent infection, taking 2 doses - discontinued on admission Status: Chronic Plan CODE: Full as discussed with patient VTE PPX: Enoxaparin Disposition: Inpatient, CCU
--- NOTE | 2023-08-28 13:04 | PC.NURSE ---
Possibly always has a delacruz cath in place to promote wound healing
[2023-08-28 13:59] LABS: Creatine Kinase* < 20 U/L (41-117)
--- NOTE | 2023-08-28 14:12 | PC.NURSE ---
asked patient when last BM was stated a week ago
[2023-08-28] MEDS: ACETAMINOPHEN 325 MG TABLET 650 MG PO ×2 (14:54→20:49)
[2023-08-28] MEDS: GABAPENTIN 300 MG CAPSULE PO ×2 (14:55→20:49)
[2023-08-28] MEDS: metroNIDAZOLE 500 MG TABLET PO ×2 (14:55→20:49)
[2023-08-28] MEDS: cefTRIAXone 2 GM in 0.9 % SODIUM CHLORIDE Mini-bag 100 ML IVPB (14:55)
[2023-08-28] MEDS: 0.9 % SODIUM CHLORIDE 1000 ml 1,000 ML 100 ML IV (16:25)
[2023-08-28] MEDS: KETOROLAC 30 MG/ML inj 15 MG IVP (16:28)
[2023-08-28] MEDS: DAPTOmycin 50 MG/ML inj 500 MG IVP (16:28)
[2023-08-28] MEDS: OMEPRAZOLE 20 MG CAPSULE DR PO (20:49)
[2023-08-28] MEDS: hydrOXYzine pamoate 25 MG CAPSULE PO (20:49)
[2023-08-28] MEDS: ENOXAPARIN 40 MG/0.4 ML INJ SUBCUT (20:49)
--- NOTE | 2023-08-28 23:00 | PC.NURSE ---
End of Shift: Patient pleasant and cooperative. Afebrile. Wound Vac to right buttock C/D/I. Wound to sacrum changed as ordered, 2 small open areas noted to upper right buttock, Mepilex applied. Patient turned and repositioned frequently. Cristobal patent. Tolerating regular diet with no nausea. Rating pain 4-5/10 and PRN Toradol and Vistaril each given x1 along with scheduled Tylenol. Able to wean oxygen down to 0.5L NC, sats decrease to 78-84% on room air. Tele showing NSR to sinus tach.
[2023-08-29] VITALS (146 sets, daily range): BP systolic 84–136; BP diastolic 47–81; PULSE 74–120; RESP 8–25; TEMP 35.8–37.7; O2SAT 77–98; BMI 30.3
[2023-08-29] MEDS: ACETAMINOPHEN 325 MG TABLET 650 MG PO ×3 (03:17→17:22)
--- NOTE | 2023-08-29 06:35 | PC.NURSE ---
END OF SHIFT NOTE: PT PLEASANT AND COOPERATIVE. DENIES CP, SOB, N/V. PT IS PARAPLEGIC SINCE CHILDHOOD; TURNED AND REPOSITIONED WITH PILLOWS FOR OFFLOADING AND COMFORT. VSS ON 1-0.5L SUPPLEMENTAL O2 VIA NC; AFEBRILE. TELE READS SINUS TACHYCARDIA. HELLER DRAINING BRITTANEY URINE. WOUND VAC ON CONTINUOUS SUCTION OF 125MMHG WITH SCANT SANGUINEOUS OUTPUT. MEPILEX APPLIED TO RIGHT UPPER BUTTOCK AND TO SACRUM, BOTH C/D/I. PT SLEPT THROUGHOUT NIGHT. CALL LIGHT WITHIN PT?S REACH.
[2023-08-29 06:55] LABS: HCO3 VBG 34 mmol/L (21-28); PO2 VBG 49.8 mmHG (25-47)
[2023-08-29 06:57] LABS: pH VBG 7.232 (7.32-7.43)
[2023-08-29 06:58] LABS: PCO2 VBG 82 mmHG (40-50)
[2023-08-29 07:13] LABS: Albumin* 2.8 g/dL (3.3-5.0); Chloride* 104 mmol/L (96-114); Potassium* 4.6 mmol/L (3.6-5.1); Sodium* 132 mmol/L (135-149)
[2023-08-29 07:16] LABS: Alkaline Phosphatase* 282 U/L (40-150); Anion Gap -6 mEq/L (7-15); Aspartate Amino Transferase* 46 U/L (12-35); Bilirubin Direct* 0.1 mg/dL (0.0-0.5); Bilirubin Total* 0.4 mg/dL (0.1-1.5); Blood Urea Nitrogen* 19 mg/dL (7-30); Calcium* 8.3 mg/dL (8.4-10.6); Carbon Dioxide* 34 mmol/L (20-32); Creatinine* 0.3 mg/dL (0.5-1.5); Est. Creatinine Clearance* 34.38; Estimated Glomerular Filt Rate 110 ml/min; Glucose* 131 mg/dL (60-115); Total Protein* 5.3 g/dL (6.0-8.3)
[2023-08-29 07:17] LABS: Alanine Aminotransferase* 45 U/L (4-35)
[2023-08-29 07:24] LABS: Creatine Kinase* < 20 U/L (41-117)
[2023-08-29 09:24] LABS: Hematocrit 42.1 % (33.0-51.0); Hemoglobin* 11.9 gm/dL (12.0-16.0); Mean Corpuscular HGB Conc 28 gm/dL (32-36); Mean Corpuscular Hemoglobin 26 pg (26-34); Mean Corpuscular Volume 94 fL (80-100); Platelet Count* 418 K/uL (140-440); White Blood Count* 20.58 K/uL (4.50-11.00)
[2023-08-29 09:25] LABS: Slide Review Reflex No
[2023-08-29] MEDS: 0.9 % SODIUM CHLORIDE 1000 ml 1,000 ML IV ×2 (10:02→10:45)
[2023-08-29] MEDS: SODIUM CHLORIDE 0.9 % (FLUSH) 10 ML SYRINGE 5 ML IVF ×3 (10:04→23:10)
--- NOTE | 2023-08-29 10:44 | PM.GSPN ---
Subjective Subjective Date Seen: 08/29/23 Interval history: hypercarbic this AM so was not breathing deeply - placed on BiPAP to help blow off CO2. Afebrile. Urine out put decreased but improved with bolus. Blood pressure is somewhat lower as well. Patient feeling OK. Not SOB or fatigued from baseline. Exam Narrative: Exam Narrative: General: appears mildly flushed. NAD CV: mild tachycardia from HR to 90-100 Resp: breathing somewhat labored with talking but patient feels this is baseline Skin: wound vac in place. Perianal wound dressing removed. No foul odor. No significant drainage. Unable to visualize wound base secondary to depth. Const: Vital Signs, click to edit/add: Vital Signs - 24 hr 08/28/23 10:45 08/28/23 10:50 08/28/23 10:55 Temperature Pulse Rate 105 H 105 H 105 H Pulse Rate [Pulse Oximeter] Respiratory Rate 16 16 18 Blood Pressure 137/64 136/64 139/69 Blood Pressure [Ri ght Arm] Pulse Oximetry 96 98 97 Oxygen Delivery Me thod Oxygen Flow Rate Fraction of Inspir ed Oxygen 08/28/23 11:00 08/28/23 11:05 08/28/23 11:10 Temperature Pulse Rate 107 H 105 H 108 H Pulse Rate [Pulse Oximeter] Respiratory Rate 20 20 18 Blood Pressure 143/65 H 143/67 H 127/70 Blood Pressure [Ri ght Arm] Pulse Oximetry 96 97 96 Oxygen Delivery Me thod Oxygen Flow Rate Fraction of Inspir ed Oxygen 08/28/23 11:15 08/28/23 11:20 08/28/23 11:25 Temperature Pulse Rate 107 H 105 H 105 H Pulse Rate [Pulse Oximeter] Respiratory Rate 16 16 19 Blood Pressure 142/76 H 146/73 H 148/69 H Blood Pressure [Ri ght Arm] Pulse Oximetry 97 97 97 Oxygen Delivery Me thod Oxygen Flow Rate Fraction of Inspir ed Oxygen 08/28/23 11:30 08/28/23 11:44 08/28/23 11:50 Temperature 99.9 F H Pulse Rate 103 H 108 H 107 H Pulse Rate [Pulse Oximeter] Respiratory Rate 20 18 Blood Pressure 124/65 Blood Pressure [Ri ght Arm] 140/61 H Pulse Oximetry 98 97 Oxygen Delivery Me thod Nasal Cannula Nasal Cannula Oxygen Flow Rate 3 2 Fraction of Inspir ed Oxygen 08/28/23 11:57 08/28/23 12:00 08/28/23 12:01 Temperature Pulse Rate 102 H 104 H 105 H Pulse Rate [Pulse Oximeter] Respiratory Rate Blood Pressure 124/78 108/67 Blood Pressure [Ri ght Arm] Pulse Oximetry 96 96 96 Oxygen Delivery Me thod Oxygen Flow Rate Fraction of Inspir ed Oxygen 08/28/23 12:15 08/28/23 12:16 08/28/23 12:18 Temperature Pulse Rate 104 H 104 H 107 H Pulse Rate [Pulse Oximeter] Respiratory Rate Blood Pressure 122/63 Blood Pressure [Ri ght Arm] Pulse Oximetry 97 97 Oxygen Delivery Me thod Oxygen Flow Rate Fraction of Inspir ed Oxygen 08/28/23 12:21 08/28/23 12:30 08/28/23 12:31 Temperature Pulse Rate 102 H 100 Pulse Rate [Pulse Oximeter] Respiratory Rate 18 Blood Pressure 126/62 Blood Pressure [Ri ght Arm] Pulse Oximetry 96 97 97 Oxygen Delivery Me thod Nasal Cannula Oxygen Flow Rate 2 Fraction of Inspir ed Oxygen 08/28/23 12:45 08/28/23 12:46 08/28/23 13:00 Temperature 99.5 F Pulse Rate 105 H 105 H Pulse Rate [Pulse Oximeter] 108 H Respiratory Rate 18 Blood Pressure 136/63 Blood Pressure [Ri ght Arm] 132/99 H Pulse Oximetry 96 96 95 Oxygen Delivery Me thod Nasal Cannula Oxygen Flow Rate 2 Fraction of Inspir ed Oxygen 08/28/23 13:00 08/28/23 13:01 08/28/23 13:02 Temperature 99.5 F Pulse Rate 111 H 109 H 112 H Pulse Rate [Pulse Oximeter] Respiratory Rate 18 Blood Pressure 132/99 H Blood Pressure [Ri ght Arm] Pulse Oximetry 96 97 96 Oxygen Delivery Me thod Oxygen Flow Rate Fraction of Inspir ed Oxygen 08/28/23 13:15 08/28/23 13:16 08/28/23 13:30 Temperature Pulse Rate 109 H 109 H 108 H Pulse Rate [Pulse Oximeter] Respiratory Rate 18 Blood Pressure 108/74 Blood Pressure [Ri ght Arm] Pulse Oximetry 95 96 96 Oxygen Delivery Me thod Oxygen Flow Rate Fraction of Inspir ed Oxygen 08/28/23 13:31 08/28/23 13:45 08/28/23 13:46 Temperature Pulse Rate 108 H 111 H 112 H Pulse Rate [Pulse Oximeter] Respiratory Rate 16 16 Blood Pressure 117/58 L 119/46 L Blood Pressure [Ri ght Arm] Pulse Oximetry 96 96 96 Oxygen Delivery Me thod Oxygen Flow Rate Fraction of Inspir ed Oxygen 08/28/23 14:00 08/28/23 14:01 08/28/23 14:25 Temperature 99.5 F 99.5 F Pulse Rate 112 H 112 H Pulse Rate [Pulse Oximeter] 108 H Respiratory Rate 16 16 Blood Pressure 130/63 Blood Pressure [Ri ght Arm] 132/99 H Pulse Oximetry 96 97 97 Oxygen Delivery Me thod Nasal Cannula Oxygen Flow Rate 2 Fraction of Inspir ed Oxygen 08/28/23 15:00 08/28/23 15:00 08/28/23 15:00 Temperature Pulse Rate 99 Pulse Rate [Pulse Oximeter] 91 Respiratory Rate 20 Blood Pressure Blood Pressure [Ri ght Arm] Pulse Oximetry 97 Oxygen Delivery Me thod Nasal Cannula Oxygen Flow Rate 2 Fraction of Inspir ed Oxygen 08/28/23 15:30 08/28/23 16:30 08/28/23 17:30 Temperature 98.2 F 98.2 F Pulse Rate Pulse Rate [Pulse Oximeter] 89 91 92 Respiratory Rate 20 20 18 Blood Pressure Blood Pressure [Ri ght Arm] 124/62 108/69 112/48 L Pulse Oximetry 97 97 95 Oxygen Delivery Me thod Nasal Cannula Nasal Cannula Nasal Cannula Oxygen Flow Rate 2 2 1 Fraction of Inspir ed Oxygen 08/28/23 18:00 08/28/23 20:00 08/28/23 22:00 Temperature 98.4 F 98.7 F 98.3 F Pulse Rate Pulse Rate [Pulse Oximeter] 102 H 95 104 H Respiratory Rate 16 16 20 Blood Pressure Blood Pressure [Ri ght Arm] 107/57 L 117/63 125/57 L Pulse Oximetry 92 90 89 Oxygen Delivery Me thod Nasal Cannula Nasal Cannula Nasal Cannula Oxygen Flow Rate 1 0.5 0.5 Fraction of Inspir ed Oxygen 08/29/23 00:30 08/29/23 00:30 08/29/23 00:30 Temperature Pulse Rate 112 H Pulse Rate [Pulse Oximeter] 112 H Respiratory Rate 18 18 Blood Pressure Blood Pressure [Ri ght Arm] Pulse Oximetry 90 Oxygen Delivery Me thod Nasal Cannula Oxygen Flow Rate 0.5 Fraction of Inspir ed Oxygen 08/29/23 00:30 08/29/23 02:00 08/29/23 03:00 Temperature 98.0 F 98.6 F Pulse Rate Pulse Rate [Pulse Oximeter] 112 H 117 H 116 H Respiratory Rate 18 16 16 Blood Pressure Blood Pressure [Ri ght Arm] 125/62 134/81 Pulse Oximetry 90 93 Oxygen Delivery Me thod Nasal Cannula Nasal Cannula Oxygen Flow Rate 0.5 0.5 Fraction of Inspir ed Oxygen 08/29/23 03:12 08/29/23 04:00 08/29/23 06:00 Temperature 98.0 F 97.8 F Pulse Rate 118 H Pulse Rate [Pulse Oximeter] 116 H 105 H Respiratory Rate 16 14 Blood Pressure Blood Pressure [Ri ght Arm] 123/67 112/56 L Pulse Oximetry 90 96 Oxygen Delivery Me thod Nasal Cannula Nasal Cannula Oxygen Flow Rate 0.5 0.5 Fraction of Inspir ed Oxygen 08/29/23 06:10 08/29/23 06:15 08/29/23 06:17 Temperature Pulse Rate 106 H 105 H 106 H Pulse Rate [Pulse Oximeter] Respiratory Rate 15 12 Blood Pressure 112/56 L Blood Pressure [Ri ght Arm] Pulse Oximetry 95 96 95 Oxygen Delivery Me thod Oxygen Flow Rate Fraction of Inspir ed Oxygen 08/29/23 06:20 08/29/23 06:25 08/29/23 06:30 Temperature Pulse Rate 105 H 104 H 105 H Pulse Rate [Pulse Oximeter] Respiratory Rate 15 12 12 Blood Pressure Blood Pressure [Ri ght Arm] Pulse Oximetry 96 98 98 Oxygen Delivery Me thod Oxygen Flow Rate Fraction of Inspir ed Oxygen 08/29/23 06:35 08/29/23 06:40 08/29/23 06:45 Temperature Pulse Rate 107 H 103 H 109 H Pulse Rate [Pulse Oximeter] Respiratory Rate 11 L 11 L 11 L Blood Pressure Blood Pressure [Ri ght Arm] Pulse Oximetry 96 94 94 Oxygen Delivery Me thod Oxygen Flow Rate Fraction of Inspir ed Oxygen 08/29/23 06:50 08/29/23 06:55 08/29/23 07:00 Temperature Pulse Rate 110 H 108 H Pulse Rate [Pulse Oximeter] Respiratory Rate 9 L 12 17 Blood Pressure Blood Pressure [Ri ght Arm] Pulse Oximetry 94 94 92 Oxygen Delivery Me thod BiPAP Oxygen Flow Rate Fraction of Inspir ed Oxygen 08/29/23 07:00 08/29/23 07:05 08/29/23 07:10 Temperature Pulse Rate 106 H 105 H 104 H Pulse Rate [Pulse Oximeter] Respiratory Rate 11 L 12 Blood Pressure Blood Pressure [Ri ght Arm] Pulse Oximetry 95 96 96 Oxygen Delivery Me thod Oxygen Flow Rate Fraction of Inspir ed Oxygen 08/29/23 07:15 08/29/23 07:20 08/29/23 07:25 Temperature Pulse Rate 102 H 102 H 100 Pulse Rate [Pulse Oximeter] Respiratory Rate 11 L 12 11 L Blood Pressure Blood Pressure [Ri ght Arm] Pulse Oximetry 96 97 96 Oxygen Delivery Me thod Oxygen Flow Rate Fraction of Inspir ed Oxygen 08/29/23 07:30 08/29/23 07:35 08/29/23 07:40 Temperature Pulse Rate 100 104 H 108 H Pulse Rate [Pulse Oximeter] Respiratory Rate 11 L 10 L 11 L Blood Pressure Blood Pressure [Ri ght Arm] Pulse Oximetry 96 96 95 Oxygen Delivery Me thod Oxygen Flow Rate Fraction of Inspir ed Oxygen 08/29/23 07:45 08/29/23 07:50 08/29/23 07:55 Temperature Pulse Rate 107 H 103 H 103 H Pulse Rate [Pulse Oximeter] Respiratory Rate 13 12 12 Blood Pressure Blood Pressure [Ri ght Arm] Pulse Oximetry 96 96 97 Oxygen Delivery Me thod Oxygen Flow Rate Fraction of Inspir ed Oxygen 08/29/23 08:00 08/29/23 08:05 08/29/23 08:10 Temperature Pulse Rate 111 H 106 H 104 H Pulse Rate [Pulse Oximeter] Respiratory Rate 8 L 12 15 Blood Pressure Blood Pressure [Ri ght Arm] Pulse Oximetry 94 95 92 Oxygen Delivery Me thod Oxygen Flow Rate Fraction of Inspir ed Oxygen 08/29/23 08:12 08/29/23 08:15 08/29/23 08:20 Temperature Pulse Rate 107 H 105 H 100 Pulse Rate [Pulse Oximeter] Respiratory Rate 17 Blood Pressure 103/61 Blood Pressure [Ri ght Arm] Pulse Oximetry 92 89 91 Oxygen Delivery Me thod Oxygen Flow Rate Fraction of Inspir ed Oxygen 08/29/23 08:23 08/29/23 08:25 08/29/23 08:30 Temperature 97.7 F Pulse Rate 99 97 Pulse Rate [Pulse Oximeter] 106 H Respiratory Rate 17 Blood Pressure Blood Pressure [Ri ght Arm] 103/61 Pulse Oximetry 92 90 92 Oxygen Delivery Me thod BiPAP Oxygen Flow Rate Fraction of Inspir ed Oxygen 08/29/23 08:35 08/29/23 08:38 08/29/23 08:40 Temperature Pulse Rate 99 100 Pulse Rate [Pulse Oximeter] Respiratory Rate Blood Pressure Blood Pressure [Ri ght Arm] Pulse Oximetry 86 L 85 L Oxygen Delivery Me thod Oxygen Flow Rate Fraction of Inspir ed Oxygen 21 08/29/23 08:45 08/29/23 08:50 08/29/23 08:55 Temperature Pulse Rate 93 92 95 Pulse Rate [Pulse Oximeter] Respiratory Rate Blood Pressure Blood Pressure [Ri ght Arm] Pulse Oximetry 90 94 91 Oxygen Delivery Me thod Oxygen Flow Rate Fraction of Inspir ed Oxygen 08/29/23 09:00 08/29/23 09:05 08/29/23 09:10 Temperature Pulse Rate 96 91 90 Pulse Rate [Pulse Oximeter] Respiratory Rate Blood Pressure Blood Pressure [Ri ght Arm] Pulse Oximetry 92 95 96 Oxygen Delivery Me thod Oxygen Flow Rate Fraction of Inspir ed Oxygen 08/29/23 09:15 08/29/23 09:20 08/29/23 09:25 Temperature Pulse Rate 89 87 93 Pulse Rate [Pulse Oximeter] Respiratory Rate Blood Pressure Blood Pressure [Ri ght Arm] Pulse Oximetry 95 95 87 L Oxygen Delivery Me thod Oxygen Flow Rate Fraction of Inspir ed Oxygen 08/29/23 09:30 08/29/23 09:34 08/29/23 09:34 Temperature Pulse Rate 92 89 Pulse Rate [Pulse Oximeter] 90 Respiratory Rate 13 Blood Pressure 91/54 L Blood Pressure [Ri ght Arm] 90/48 L Pulse Oximetry 89 90 88 Oxygen Delivery Me thod BiPAP Oxygen Flow Rate Fraction of Inspir ed Oxygen 08/29/23 09:36 08/29/23 09:37 08/29/23 09:40 Temperature Pulse Rate 91 91 88 Pulse Rate [Pulse Oximeter] Respiratory Rate Blood Pressure 90/48 L Blood Pressure [Ri ght Arm] Pulse Oximetry 88 88 90 Oxygen Delivery Me thod Oxygen Flow Rate Fraction of Inspir ed Oxygen 08/29/23 09:42 08/29/23 09:45 08/29/23 09:46 Temperature Pulse Rate 90 90 91 Pulse Rate [Pulse Oximeter] Respiratory Rate Blood Pressure 84/47 L 91/51 L Blood Pressure [Ri ght Arm] Pulse Oximetry 87 L 89 88 Oxygen Delivery Me thod Oxygen Flow Rate Fraction of Inspir ed Oxygen 08/29/23 10:29 Temperature 98.2 F Pulse Rate 96 Pulse Rate [Pulse Oximeter] Respiratory Rate 14 Blood Pressure 99/77 Blood Pressure [Ri ght Arm] Pulse Oximetry 93 Oxygen Delivery Me thod BiPAP Oxygen Flow Rate Fraction of Inspir ed Oxygen Labs/Imaging Labs Labs: WBC 20 from 27 Cultures pending Progress Note: A&P Assessment and plan (1) Chronic steroid use: Problem details: - for RA Status: Acute (2) Decubitus ulcers: Status: Acute (3) Aure-rectal abscess: Problem details: -Perianal abscess with concern for necrotizing soft tissue infection. Low-grade fever, leukocytosis, lactate 1.1. Continue to trend. 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 Gallegos -wound cultures pending -Infectious Disease consulted recommending ceftriaxone IV 2 g Q 24 hours, Flagyl 500 mg p.o. q.8 hours, daptomycin (empiric coverage for enterococcus) 500 mg IV Q 24 hours. If found to be soft tissue infection, continue antibiotics for 2 weeks from most recent I&D. If osteomyelitis etiology, Infectious Disease service requests follow-up for further recommendations -daily CK while on Dapto -wound care recommendations per General Surgery -pain management to include scheduled Tylenol, p.r.n. Vistaril, ketorolac (1 time dose prn). Continue home gabapentin and prn oxycodone -MINIMIZE NARCOTICS WITH HISTORY OF PARALYZED VOCAL CORD, DIFFICULT INTUBATION/EXTUBATION -encourage postoperative pulmonary hygiene, aerobika, pulse oximetry with narcotics Status: Acute (4) Rheumatoid arthritis: Problem details: -on chronic daily prednisone 10 mg, continue Status: Acute (5) Paraplegia: Problem details: -since age 6; muscle atrophy (chronic) bilaterally Status: Chronic (6) Hypoxia: Problem details: - likely 2/2 acute respiratory infection, complicated by undiagnosed and untreated sleep apnea, chronic opioid use - Seen by RT and will discharge back to [facility] on 0.5-1L of O2 per NC given mild but persistent hypoxia TTE 01/14/23: Final Impressions: 1. Technically limited exam. 2. Normal LV size, not well visualized wall thickness, hyperdynamic global systolic function with an estimated EF of > 75%. No hemodynamically significant intracavitary gradient. 3. The aortic valve is trileaflet and sclerotic, no stenosis and no regurgitation. 4. The mitral valve is sclerotic, trace mitral regurgitation. 5. Mitral stenosis with mildly increased mean gradient of 5.7 mmHg at a heart rate of 95. 6. Right ventricular cavity size is normal, global systolic RV function is normal. Status: Acute Plan Wound vac on right ischial tuberosity wound to be changed T, TH, Sat. Will need to be changed to patient's home vac prior to d/c Continue BID dressing changes to right perianal wound with VASHE. Instructed nursing to ensure packing gets deep enough Continue broad antibiotics until culture results back - biopsy of bone performed looking for osteo if she appears to be more septic - respiratory depression, hypotension, oliguria, may require transfer to teritary care facility certainly consideration must be had for need for further debridement as well if she fails to improve; however, if this is the case, she would need transfer.
[2023-08-29 10:52] LABS: Lactate* 1.2 mmol/L (0.5-1.9)
[2023-08-29 10:55] LABS: pH VBG 7.3 (7.32-7.43)
[2023-08-29 10:56] LABS: HCO3 VBG 33 mmol/L (21-28); PCO2 VBG 59 mmHG (40-50); PO2 VBG 34.4 mmHG (25-47)
--- NOTE | 2023-08-29 11:25 | REH.PT ---
Pt not appropriate for PT/OT at this time per MD. Hold eval at this time.
[2023-08-29 11:41] LABS: NT Pro B Type NatriureticPept* 4740 pg/mL; Troponin I* 0.08 ng/mL (0.01-0.04)
[2023-08-29] MEDS: 0.9 % SODIUM CHLORIDE 1000 ml 1,000 ML 125 ML IV ×2 (12:00→21:13)
[2023-08-29] MEDS: metroNIDAZOLE 500 MG TABLET PO ×3 (12:35→21:14)
[2023-08-29] MEDS: OMEPRAZOLE 20 MG CAPSULE DR PO ×2 (12:35→21:14)
[2023-08-29] MEDS: predniSONE 5 MG TABLET 10 MG PO (12:35)
[2023-08-29] MEDS: GABAPENTIN 300 MG CAPSULE PO ×3 (12:36→21:15)
--- NOTE | 2023-08-29 14:57 | P.IMPN_ITS ---
Progress Note: A&P Assessment and plan (1) Acute on chronic respiratory failure with hypoxia and hypercapnia: Problem details: - VBG : pH 7.23, pCO2 82, pO2 50, HCO3- 34 - metabolic encephalopathy, improved with BIPap - Daily VBG Status: Acute (2) Acute respiratory acidosis: Problem details: - VBG : pH 7.23, pCO2 82, pO2 50, HCO3- 34 - metabolic encephalopathy, improved with BIPap - Daily VBG Status: Acute (3) Hypotension due to hypovolemia: Problem details: - possibly from 3rd spacing, acute adrenal insufficiency, opioids, doubt sepsis - NS IVF - stress doses of hydrocortisone x 2 days, then on Friday09/01/2023 resume prednisone 10 mg po daily Status: Acute (4) Oliguria: Problem details: - Rx with IVF, stress doses of steroids, furosemide - monitor Status: Acute (5) Iatrogenic adrenal insufficiency: Problem details: - ordinarily on prednisone 10 mg po daily - will treat with stress doses of hydrocortisone x 2 days, then decrease back to 10 mg prednisone daily Status: Acute (6) Chronic steroid use: Problem details: - for RA, usual dose of prednisone 10 po daily Status: Acute (7) Chronic, continuous use of opioids: Problem details: - continue to assess and treat as needed Status: Acute (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 Low-grade fever, leukocytosis, lactate 1.1. Continue to trend. 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 Gallegos -wound cultures pending -Infectious Disease consulted recommending ceftriaxone IV 2 g Q 24 hours, Flagyl 500 mg p.o. q.8 hours, daptomycin (empiric coverage for enterococcus) 500 mg IV Q 24 hours. If found to be soft tissue infection, continue antibiotics for 2 weeks from most recent I&D. If osteomyelitis etiology, Infectious Disease service requests follow-up for further recommendations -daily CK while on Dapto -wound care recommendations per General Surgery -pain management to include scheduled Tylenol, p.r.n. Vistaril, ketorolac (1 time dose prn). 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 Continue wound cares. Pending further recommendations general surgery Status: Chronic (14) PUD (peptic ulcer disease): Problem details: - h/o PUD - started PPI IV pantoprazole 08/29/23 Status: Acute (15) Rheumatoid arthritis: Problem details: -on chronic daily prednisone 10 mg, continue Status: Acute (16) Acute on chronic anemia: Problem details: Pre-pyloric ulcer probably the culprit lesion causing her recent hemoglobin drop. Dr. Dow recommends high-dose PPI for 3 months. H pylori testing pending Status: Acute (17) Paraplegia: Problem details: -since age 6; muscle atrophy (chronic) bilaterally Status: Chronic (18) Sleep apnea: Problem details: -Clinically suspected, no previous evaluation or sleep study -encourage postoperative pulmonary hygiene, Aerobika Status: Suspected Time Spent With Patient Total time spent: 70 minutes Subjective Date Seen: 08/29/23 Interval history: Hospital day 2, postoperative day 1, status post incision and drainage right perianal abscess with seton placement and bone biopsy chronic right ischial tube rosity wound. On IV ceftriaxone, metronidazole, and daptomycin after discussion with Infectious Disease. Await results of wound cultures and of bone biopsies and cultures. History of present illness: Prerna Major is a 77 year old female paraplegic since childhood, neurogenic bladder with chronic indwelling Delacruz catheter, rheumatoid arthritis on chronic steroid, acute on chronic anemia, lower extremity edema on Lasix, PUD, chronic pressure ulcers is admitted to the CCU from the OR after emergent surgery taken from the ED for further management. Patient was seen in the ED for rectal pain x1 week with inability to have a bowel movement. Was seen by the wound care nurse today (who manages her wound VAC) with concerns for perirectal wound that is leaking some fluid and blood. Has been constipated, 3-4 bowel movements per week. Reports chills without measured fever, increased shortness of breath. Has a history of vocal cord paralysis. Reports upper abdominal fullness, mild nausea, no vomiting. When I 1st saw her this morning she was essentially unarousable. She was on oxygen at 1.5 liters/minute via nasal cannula continuously saturating 94% with a respiratory rate of about 10. Her end-tidal CO2 was in the 60-70 range. Venous blood gas demonstrated pH of 7.23 with pCO2 of 82. We switched her to BiPAP therapy on room air and over a period of about 2 hours her mentation slowly normalize any eventually were able to remove her from the BiPAP and she did very well on room air without oxygen supplementation. Her end-tidal CO2 improved substantially. Poor urine output all day. For a brief while her systolic blood pressures were in the 80s. We administered boluses of normal saline and put her on normal saline maintenance fluid of 125 mL/hour. Systolic blood pressures in proved to the 110s. The concern is that she may have developed acute kidney injury. Her troponin I was elevated at 0.4. No electrocardiographic changes for ischemia. No complain of chest heaviness, pressure, tightness, or pain. Denied any dyspnea. No nausea or vomiting. States she is hungry. Exam Narrative: Exam Narrative: Initially in the morning she was encephalopathic and nearly unarousable. As I adjusted her ventilatory status her mentation normalize. With her mentation as such she is alert and oriented to self, place, time, and even situation. Friendly, articulate, cooperative. Paraplegia, chronic. Lungs now clear to auscultation with scattered rhonchi without wheezing or rales. Heart tones with regular rhythm, normal S1-S2. Abdomen with active bowel sounds, soft, nontender. Lower extremities with edema. I examined her wounds with her general surgeon, which wounds appear clean at this time to the base. Dressing replaced. Const: Vital Signs, click to edit/add: Vital Signs - 24 hr 08/28/23 15:00 08/28/23 15:00 08/28/23 15:00 Temperature Pulse Rate 99 Pulse Rate [Pulse Oximeter] 91 Respiratory Rate 20 Blood Pressure Blood Pressure [Ri ght Arm] Pulse Oximetry 97 Oxygen Delivery Me thod Nasal Cannula Oxygen Flow Rate 2 Fraction of Inspir ed Oxygen 08/28/23 15:30 08/28/23 16:30 08/28/23 17:30 Temperature 98.2 F 98.2 F Pulse Rate Pulse Rate [Pulse Oximeter] 89 91 92 Respiratory Rate 20 20 18 Blood Pressure Blood Pressure [Ri ght Arm] 124/62 108/69 112/48 L Pulse Oximetry 97 97 95 Oxygen Delivery Me thod Nasal Cannula Nasal Cannula Nasal Cannula Oxygen Flow Rate 2 2 1 Fraction of Inspir ed Oxygen 08/28/23 18:00 08/28/23 20:00 08/28/23 22:00 Temperature 98.4 F 98.7 F 98.3 F Pulse Rate Pulse Rate [Pulse Oximeter] 102 H 95 104 H Respiratory Rate 16 16 20 Blood Pressure Blood Pressure [Ri ght Arm] 107/57 L 117/63 125/57 L Pulse Oximetry 92 90 89 Oxygen Delivery Me thod Nasal Cannula Nasal Cannula Nasal Cannula Oxygen Flow Rate 1 0.5 0.5 Fraction of Inspir ed Oxygen 08/29/23 00:30 08/29/23 00:30 08/29/23 00:30 Temperature Pulse Rate 112 H Pulse Rate [Pulse Oximeter] 112 H Respiratory Rate 18 18 Blood Pressure Blood Pressure [Ri ght Arm] Pulse Oximetry 90 Oxygen Delivery Me thod Nasal Cannula Oxygen Flow Rate 0.5 Fraction of Inspir ed Oxygen 08/29/23 00:30 08/29/23 02:00 08/29/23 03:00 Temperature 98.0 F 98.6 F Pulse Rate Pulse Rate [Pulse Oximeter] 112 H 117 H 116 H Respiratory Rate 18 16 16 Blood Pressure Blood Pressure [Ri ght Arm] 125/62 134/81 Pulse Oximetry 90 93 Oxygen Delivery Me thod Nasal Cannula Nasal Cannula Oxygen Flow Rate 0.5 0.5 Fraction of Inspir ed Oxygen 08/29/23 03:12 08/29/23 04:00 08/29/23 06:00 Temperature 98.0 F 97.8 F Pulse Rate 118 H Pulse Rate [Pulse Oximeter] 116 H 105 H Respiratory Rate 16 14 Blood Pressure Blood Pressure [Ri ght Arm] 123/67 112/56 L Pulse Oximetry 90 96 Oxygen Delivery Me thod Nasal Cannula Nasal Cannula Oxygen Flow Rate 0.5 0.5 Fraction of Inspir ed Oxygen 08/29/23 06:10 08/29/23 06:15 08/29/23 06:17 Temperature Pulse Rate 106 H 105 H 106 H Pulse Rate [Pulse Oximeter] Respiratory Rate 15 12 Blood Pressure 112/56 L Blood Pressure [Ri ght Arm] Pulse Oximetry 95 96 95 Oxygen Delivery Me thod Oxygen Flow Rate Fraction of Inspir ed Oxygen 08/29/23 06:20 08/29/23 06:25 08/29/23 06:30 Temperature Pulse Rate 105 H 104 H 105 H Pulse Rate [Pulse Oximeter] Respiratory Rate 15 12 12 Blood Pressure Blood Pressure [Ri ght Arm] Pulse Oximetry 96 98 98 Oxygen Delivery Me thod Oxygen Flow Rate Fraction of Inspir ed Oxygen 08/29/23 06:35 08/29/23 06:40 08/29/23 06:45 Temperature Pulse Rate 107 H 103 H 109 H Pulse Rate [Pulse Oximeter] Respiratory Rate 11 L 11 L 11 L Blood Pressure Blood Pressure [Ri ght Arm] Pulse Oximetry 96 94 94 Oxygen Delivery Me thod Oxygen Flow Rate Fraction of Inspir ed Oxygen 08/29/23 06:50 08/29/23 06:55 08/29/23 07:00 Temperature Pulse Rate 110 H 108 H Pulse Rate [Pulse Oximeter] Respiratory Rate 9 L 12 17 Blood Pressure Blood Pressure [Ri ght Arm] Pulse Oximetry 94 94 92 Oxygen Delivery Me thod BiPAP Oxygen Flow Rate Fraction of Inspir ed Oxygen 08/29/23 07:00 08/29/23 07:00 08/29/23 07:05 Temperature Pulse Rate 106 H 106 H 105 H Pulse Rate [Pulse Oximeter] Respiratory Rate 11 L Blood Pressure Blood Pressure [Ri ght Arm] Pulse Oximetry 95 96 Oxygen Delivery Me thod Oxygen Flow Rate Fraction of Inspir ed Oxygen 08/29/23 07:10 08/29/23 07:15 08/29/23 07:20 Temperature Pulse Rate 104 H 102 H 102 H Pulse Rate [Pulse Oximeter] Respiratory Rate 12 11 L 12 Blood Pressure Blood Pressure [Ri ght Arm] Pulse Oximetry 96 96 97 Oxygen Delivery Me thod Oxygen Flow Rate Fraction of Inspir ed Oxygen 08/29/23 07:25 08/29/23 07:30 08/29/23 07:35 Temperature Pulse Rate 100 100 104 H Pulse Rate [Pulse Oximeter] Respiratory Rate 11 L 11 L 10 L Blood Pressure Blood Pressure [Ri ght Arm] Pulse Oximetry 96 96 96 Oxygen Delivery Me thod Oxygen Flow Rate Fraction of Inspir ed Oxygen 08/29/23 07:40 08/29/23 07:45 08/29/23 07:50 Temperature Pulse Rate 108 H 107 H 103 H Pulse Rate [Pulse Oximeter] Respiratory Rate 11 L 13 12 Blood Pressure Blood Pressure [Ri ght Arm] Pulse Oximetry 95 96 96 Oxygen Delivery Me thod Oxygen Flow Rate Fraction of Inspir ed Oxygen 08/29/23 07:55 08/29/23 08:00 08/29/23 08:05 Temperature Pulse Rate 103 H 111 H 106 H Pulse Rate [Pulse Oximeter] Respiratory Rate 12 8 L 12 Blood Pressure Blood Pressure [Ri ght Arm] Pulse Oximetry 97 94 95 Oxygen Delivery Me thod Oxygen Flow Rate Fraction of Inspir ed Oxygen 08/29/23 08:10 08/29/23 08:12 08/29/23 08:15 Temperature Pulse Rate 104 H 107 H 105 H Pulse Rate [Pulse Oximeter] Respiratory Rate 15 17 Blood Pressure 103/61 Blood Pressure [Ri ght Arm] Pulse Oximetry 92 92 89 Oxygen Delivery Me thod Oxygen Flow Rate Fraction of Inspir ed Oxygen 08/29/23 08:20 08/29/23 08:23 08/29/23 08:25 Temperature 97.7 F Pulse Rate 100 99 Pulse Rate [Pulse Oximeter] 106 H Respiratory Rate 17 Blood Pressure Blood Pressure [Ri ght Arm] 103/61 Pulse Oximetry 91 92 90 Oxygen Delivery Me thod BiPAP Oxygen Flow Rate Fraction of Inspir ed Oxygen 08/29/23 08:30 08/29/23 08:35 08/29/23 08:38 Temperature Pulse Rate 97 99 Pulse Rate [Pulse Oximeter] Respiratory Rate Blood Pressure Blood Pressure [Ri ght Arm] Pulse Oximetry 92 86 L Oxygen Delivery Me thod Oxygen Flow Rate Fraction of Inspir ed Oxygen 21 08/29/23 08:40 08/29/23 08:45 08/29/23 08:50 Temperature Pulse Rate 100 93 92 Pulse Rate [Pulse Oximeter] Respiratory Rate Blood Pressure Blood Pressure [Ri ght Arm] Pulse Oximetry 85 L 90 94 Oxygen Delivery Me thod Oxygen Flow Rate Fraction of Inspir ed Oxygen 08/29/23 08:55 08/29/23 09:00 08/29/23 09:05 Temperature Pulse Rate 95 96 91 Pulse Rate [Pulse Oximeter] Respiratory Rate Blood Pressure Blood Pressure [Ri ght Arm] Pulse Oximetry 91 92 95 Oxygen Delivery Me thod Oxygen Flow Rate Fraction of Inspir ed Oxygen 08/29/23 09:10 08/29/23 09:15 08/29/23 09:20 Temperature Pulse Rate 90 89 87 Pulse Rate [Pulse Oximeter] Respiratory Rate Blood Pressure Blood Pressure [Ri ght Arm] Pulse Oximetry 96 95 95 Oxygen Delivery Me thod Oxygen Flow Rate Fraction of Inspir ed Oxygen 08/29/23 09:25 08/29/23 09:30 08/29/23 09:34 Temperature Pulse Rate 93 92 Pulse Rate [Pulse Oximeter] 90 Respiratory Rate 13 Blood Pressure Blood Pressure [Ri ght Arm] 90/48 L Pulse Oximetry 87 L 89 90 Oxygen Delivery Me thod BiPAP Oxygen Flow Rate Fraction of Inspir ed Oxygen 08/29/23 09:34 08/29/23 09:36 08/29/23 09:37 Temperature Pulse Rate 89 91 91 Pulse Rate [Pulse Oximeter] Respiratory Rate Blood Pressure 91/54 L 90/48 L Blood Pressure [Ri ght Arm] Pulse Oximetry 88 88 88 Oxygen Delivery Me thod Oxygen Flow Rate Fraction of Inspir ed Oxygen 08/29/23 09:40 08/29/23 09:42 08/29/23 09:45 Temperature Pulse Rate 88 90 90 Pulse Rate [Pulse Oximeter] Respiratory Rate Blood Pressure 84/47 L Blood Pressure [Ri ght Arm] Pulse Oximetry 90 87 L 89 Oxygen Delivery Me thod Oxygen Flow Rate Fraction of Inspir ed Oxygen 08/29/23 09:46 08/29/23 09:47 08/29/23 09:50 Temperature Pulse Rate 91 92 97 Pulse Rate [Pulse Oximeter] Respiratory Rate Blood Pressure 91/51 L Blood Pressure [Ri ght Arm] Pulse Oximetry 88 86 L 89 Oxygen Delivery Me thod Oxygen Flow Rate Fraction of Inspir ed Oxygen 08/29/23 09:52 08/29/23 09:55 08/29/23 09:57 Temperature Pulse Rate 92 93 93 Pulse Rate [Pulse Oximeter] Respiratory Rate Blood Pressure 101/56 L 98/53 L Blood Pressure [Ri ght Arm] Pulse Oximetry 90 89 88 Oxygen Delivery Me thod Oxygen Flow Rate Fraction of Inspir ed Oxygen 08/29/23 10:00 08/29/23 10:02 08/29/23 10:05 Temperature Pulse Rate 93 96 97 Pulse Rate [Pulse Oximeter] Respiratory Rate Blood Pressure 100/64 Blood Pressure [Ri ght Arm] Pulse Oximetry 88 87 L 87 L Oxygen Delivery Me thod Oxygen Flow Rate Fraction of Inspir ed Oxygen 08/29/23 10:07 08/29/23 10:10 08/29/23 10:12 Temperature Pulse Rate 98 95 98 Pulse Rate [Pulse Oximeter] Respiratory Rate Blood Pressure 97/57 L 101/57 L Blood Pressure [Ri ght Arm] Pulse Oximetry 89 87 L 87 L Oxygen Delivery Me thod Oxygen Flow Rate Fraction of Inspir ed Oxygen 08/29/23 10:15 08/29/23 10:17 08/29/23 10:20 Temperature Pulse Rate 103 H 98 99 Pulse Rate [Pulse Oximeter] Respiratory Rate Blood Pressure 107/61 Blood Pressure [Ri ght Arm] Pulse Oximetry 81 L 87 L 93 Oxygen Delivery Me thod Oxygen Flow Rate Fraction of Inspir ed Oxygen 08/29/23 10:22 08/29/23 10:25 08/29/23 10:26 Temperature Pulse Rate 96 97 Pulse Rate [Pulse Oximeter] Respiratory Rate Blood Pressure 95/61 99/77 Blood Pressure [Ri ght Arm] Pulse Oximetry 92 92 Oxygen Delivery Me thod Oxygen Flow Rate Fraction of Inspir ed Oxygen 08/29/23 10:29 08/29/23 10:30 08/29/23 10:33 Temperature 98.2 F Pulse Rate 96 96 97 Pulse Rate [Pulse Oximeter] Respiratory Rate 14 Blood Pressure 99/77 107/66 Blood Pressure [Ri ght Arm] Pulse Oximetry 93 93 93 Oxygen Delivery Me thod BiPAP Oxygen Flow Rate Fraction of Inspir ed Oxygen 08/29/23 10:35 08/29/23 10:36 08/29/23 10:40 Temperature Pulse Rate 97 95 Pulse Rate [Pulse Oximeter] Respiratory Rate Blood Pressure 108/75 Blood Pressure [Ri ght Arm] Pulse Oximetry 93 94 Oxygen Delivery Me thod Oxygen Flow Rate Fraction of Inspir ed Oxygen 08/29/23 10:42 08/29/23 10:45 08/29/23 10:47 Temperature Pulse Rate 95 95 92 Pulse Rate [Pulse Oximeter] Respiratory Rate Blood Pressure 97/65 105/77 Blood Pressure [Ri ght Arm] Pulse Oximetry 94 94 96 Oxygen Delivery Me thod Oxygen Flow Rate Fraction of Inspir ed Oxygen 08/29/23 10:50 08/29/23 10:52 08/29/23 10:55 Temperature Pulse Rate 96 92 90 Pulse Rate [Pulse Oximeter] Respiratory Rate Blood Pressure 90/76 Blood Pressure [Ri ght Arm] Pulse Oximetry 92 92 95 Oxygen Delivery Me thod Oxygen Flow Rate Fraction of Inspir ed Oxygen 08/29/23 10:57 Temperature Pulse Rate 91 Pulse Rate [Pulse Oximeter] Respiratory Rate Blood Pressure 103/64 Blood Pressure [Ri ght Arm] Pulse Oximetry 90 Oxygen Delivery Me thod Oxygen Flow Rate Fraction of Inspir ed Oxygen Labs Labs: Laboratory Results - last 24 hr 08/29/23 08/29/23 08/29/23 05:48 06:15 10:48 WBC 20.58 H RBC 4.50 Hgb 11.9 L Hct 42.1 MCV 94 MCH 26 MCHC 28 L Plt Count 418 VBG pH 7.232 L* 7.3 L VBG pCO2 82 H* 59 H VBG pO2 49.8 H 34.4 VBG HCO3 34 H 33 H Sodium 132 L Potassium 4.6 Chloride 104 Carbon Dioxide 34 H Anion Gap -6 L BUN 19 Creatinine 0.3 L Estimated Creat Clear 34.38 Estimated GFR 110 Glucose 131 H Lactate 1.2 Calcium 8.3 L Total Bilirubin 0.4 Direct Bilirubin 0.1 AST 46 H ALT 45 H Alkaline Phosphatase 282 H Total Creatine Kinase < 20 L Troponin I 0.08 H* NT-Pro-B Natriuret Pep 4740 Total Protein 5.3 L Albumin 2.8 L
--- NOTE | 2023-08-29 15:00 | CRLHL7_ITS ---
For Patients: As a result of the Century Cures Act, medical imaging exams and procedure reports are released immediately into your electronic medical record. You may view this report before your referring provider. If you have questions, please contact your health care provider. Indication: Hypoxia, PICC line placement Technique: Chest 1 view Comparison: Chest x-ray 08/27/2023 Findings/Impression: Cardiovascular and mediastinum: Upper normal heart size with atherosclerotic calcification. Right-sided PICC line extends to at least the distal right atrium. This can be pulled back 4-5 centimeters. Consider repeat chest x-ray after repositioning. Lungs and pleural space: Low lung volumes with trace right pleural effusion and right basilar atelectasis. Bones and soft tissues: Diffuse osteopenia. Dictated by Rai Coe MD @ 08/29/2023 3:35:59 PM (Electronically Signed)
--- NOTE | 2023-08-29 15:00 | CRLHL7_ITS ---
For Patients: As a result of the Century Cures Act, medical imaging exams and procedure reports are released immediately into your electronic medical record. You may view this report before your referring provider. If you have questions, please contact your health care provider. Indication: PICC PLACEMENT Technique: Grayscale ultrasound images of the right basilic vein and right internal jugular vein submitted. IMPRESSION: Sonographic guidance for right arm PICC line placement. Dictated by Jeremiah Nicholson MD @ 09/01/2023 3:44:08 PM (Electronically Signed)
[2023-08-29 15:14] LABS: HCO3 VBG 31 mmol/L (21-28); PCO2 VBG 52 mmHG (40-50); pH VBG 7.381 (7.32-7.43)
--- NOTE | 2023-08-29 15:55 | REH.OT ---
OT: Eval on hold per MD not medically appropriate this am due to respiratory status. Will recheck status.
[2023-08-29 16:03] LABS: Troponin I* 0.06 ng/mL (0.01-0.04)
[2023-08-29] MEDS: cefTRIAXone 2 GM in 0.9 % SODIUM CHLORIDE Mini-bag 100 ML IVPB (17:19)
[2023-08-29] MEDS: FUROSEMIDE 10 MG/ML inj 20 MG IVP (17:22)
[2023-08-29] MEDS: OXYCODONE 5 MG TABLET PO ×2 (17:27→21:14)
[2023-08-29] MEDS: HYDROCORTISONE SOD SUCCINATE 50 MG/ML inj 100 MG IVP (17:29)
[2023-08-29] MEDS: DAPTOmycin 50 MG/ML inj 500 MG IVP (18:06)
--- NOTE | 2023-08-29 20:37 | PC.NURSE ---
shift note: pt placed on bipap this am. Pt drowsy but aroused to gentle nudging and name. pt oriented x3. Pt more alert this afternoon and was able to eat meals. LS dim/crkls this a.m then insp/exp rhonchi this afternoon. UO checked @ [address] Cook notified. UO @ 1600 to be 600cc. LS @ 1600 with crkls posterior bibasilar. Pt had small amount of white phlegm suctioned this afternoon after cough. Bilat l/e with non pitting edema and faint bilat pedal pulses. drsg to perirectal area changed by Dr. Gallegos. wound vac patent and @125.
[2023-08-29] MEDS: ENOXAPARIN 40 MG/0.4 ML INJ SUBCUT (21:14)
[2023-08-29] MEDS: HYDROCORTISONE SOD SUCCINATE 50 MG/ML inj IVP (23:09)
[2023-08-30] VITALS (17 sets, daily range): BP systolic 114–169; BP diastolic 63–97; PULSE 81–125; RESP 10–24; TEMP 35.9–37.9; O2SAT 84–93
[2023-08-30] MEDS: 0.9 % SODIUM CHLORIDE 1000 ml 1,000 ML 125 ML IV ×3 (05:04→20:40)
[2023-08-30] MEDS: HYDROCORTISONE SOD SUCCINATE 50 MG/ML inj IVP ×3 (06:47→23:21)
--- NOTE | 2023-08-30 07:04 | PC.NURSE ---
END OF SHIFT NOTE: PT PLEASANT AND COOPERATIVE. PT ANXIOUS ABOUT WEARING BIPAP OVERNIGHT. THROUGH THERAPEUTIC COMMUNICATION, PT AND FAMILY QUESTIONS WERE ANSWERED BY NURSE AND RT.?A&Ox3. PT DENIES CP, SOB, N/V. PT IS PARAPLEGIC SINCE CHILDHOOD. PT HAS BEEN TURNED AND REPOSITIONED WITH PILLOWS FOR OFFLOADING AND COMFORT. WOUND VAC TO RIGHT BUTTOCK INTACT WITH CONTINUOUS SUCTION OF 125MMHG YIELDING SMALL AMOUNT OF SANGUINEOUS OUTPUT. MEPILEX APPLIED TO RIGHT UPPER BUTTOCK AND SACRUM WOUNDS; DRESSING C/D/I. HELLER PATENT WITH STRAW AND BRITTANEY COLORED OUTPUT. PT HAD ONE MEDIUM, SOFT, FORMED, INCONTINENT BM. VSS ON RA (WHILE AWAKE) AND BIPAP (DURING HRS OF SLEEP). AFEBRILE. MEPITAC SOFT SILICONE TAPE APPLIED TO PT FACE TO PREVENT BREAKDOWN WITH BIPAP MASK. PT WORE BIPAP FROM 2209 (08/29) AND REMAINS ON AT THE END OF THIS DIET KITCHEN COOK?S SHIFT. CALL LIGHT WITHIN PT?S REACH.?
[2023-08-30 07:13] LABS: HCO3 VBG 31 mmol/L (21-28); PCO2 VBG 57 mmHG (40-50); PO2 VBG 42.4 mmHG (25-47); pH VBG 7.337 (7.32-7.43)
[2023-08-30 07:25] LABS: Hematocrit 40.3 % (33.0-51.0); Hemoglobin* 11.7 gm/dL (12.0-16.0); Mean Corpuscular HGB Conc 29 gm/dL (32-36); Mean Corpuscular Hemoglobin 26 pg (26-34); Mean Corpuscular Volume 91 fL (80-100); Platelet Count* 357 K/uL (140-440); Red Blood Count 4.44 m/uL (4.00-5.20)
[2023-08-30 07:26] LABS: Slide Review Reflex No
[2023-08-30 07:32] LABS: Chloride* 107 mmol/L (96-114); Sodium* 141 mmol/L (135-149)
[2023-08-30 07:33] LABS: Potassium* 4.3 mmol/L (3.6-5.1)
[2023-08-30 07:35] LABS: Anion Gap 5 mEq/L (7-15); Carbon Dioxide* 29 mmol/L (20-32); Creatinine* 0.3 mg/dL (0.5-1.5); Est. Creatinine Clearance* 34.38; Estimated Glomerular Filt Rate 110 ml/min
[2023-08-30 07:36] LABS: Blood Urea Nitrogen* 20 mg/dL (7-30); Calcium* 7.8 mg/dL (8.4-10.6); Glucose* 126 mg/dL (60-115)
[2023-08-30 07:38] LABS: Creatine Kinase* < 20 U/L (41-117)
[2023-08-30] MEDS: FUROSEMIDE 20 MG TABLET PO (08:44)
[2023-08-30] MEDS: OMEPRAZOLE 20 MG CAPSULE DR PO ×2 (08:45→20:41)
[2023-08-30] MEDS: GABAPENTIN 300 MG CAPSULE PO ×3 (08:45→20:41)
[2023-08-30] MEDS: predniSONE 5 MG TABLET 10 MG PO (08:45)
[2023-08-30] MEDS: SODIUM CHLORIDE 0.9 % (FLUSH) 10 ML SYRINGE 5 ML IVF ×4 (08:45→23:22)
[2023-08-30] MEDS: ACETAMINOPHEN 325 MG TABLET 650 MG PO ×3 (08:45→20:40)
[2023-08-30] MEDS: PANTOPRAZOLE SODIUM 40 MG INJ IVP (08:45)
[2023-08-30] MEDS: metroNIDAZOLE 500 MG TABLET PO ×3 (08:45→20:41)
--- NOTE | 2023-08-30 09:45 | REH.OT ---
Orders received for OT and PT evaluate and treat. Due to patient's extensive medical history, current medical issues and comorbidities, she is not appropriate for skilled therapy services.
[2023-08-30 12:14] LABS: ABG PCO2 48 mmHG (35-45); Base Excess ABG 2.3 mmol/L (-3.0-3.0); Carboxyhemoglobin* 1.1 % (0.0-5.0); HCO3 ABG 28 mmol/L (21-28); Oxygen Saturation ABG 89 % (92-100); PO2 ABG 54.7 mmHG (80-105); TCO2 ABG 26 mmol/l (21-30); pH ABG 7.38 (7.35-7.45)
[2023-08-30] MEDS: OXYCODONE 5 MG TABLET PO (12:47)
--- NOTE | 2023-08-30 13:04 | PM.GSPN ---
Subjective Subjective Date Seen: 08/30/23 Interval history: Mary feels better today. Still needing intermittent BiPAP, however overall breathing is improved. Urine output also has improved. No fevers. Exam Narrative: Exam Narrative: General: No acute distress Mild tachycardia with heart rate of 100. Breathing is nonlabored on nasal cannula. Wounds: Area over coccyx is reddened. Perianal wound examined. Packing removed. No significant drainage. There is some greenish discoloration on the packing. Wound probes posteriorly for several cm and deep for approximately [address] Wound VAC removed on ischial tuberosity wound. Wound is clean and without exudate. Const: Vital Signs, click to edit/add: Vital Signs - 24 hr 08/29/23 14:00 08/29/23 14:55 08/29/23 15:00 Temperature Pulse Rate 90 87 Pulse Rate [Pulse Oximeter] Respiratory Rate Blood Pressure Blood Pressure [Ri ght Arm] 114/61 Pulse Oximetry 94 Oxygen Delivery Me thod Fraction of Inspir ed Oxygen 08/29/23 15:00 08/29/23 15:00 08/29/23 15:00 Temperature Pulse Rate 88 Pulse Rate [Pulse Oximeter] Respiratory Rate 25 H 25 H Blood Pressure Blood Pressure [Ri ght Arm] Pulse Oximetry 85 L 94 Oxygen Delivery Me thod BiPAP Fraction of Inspir ed Oxygen 08/29/23 15:05 08/29/23 15:10 08/29/23 15:15 Temperature Pulse Rate 80 78 77 Pulse Rate [Pulse Oximeter] Respiratory Rate Blood Pressure Blood Pressure [Ri ght Arm] Pulse Oximetry 98 97 98 Oxygen Delivery Me thod Fraction of Inspir ed Oxygen 08/29/23 15:20 08/29/23 15:25 08/29/23 15:30 Temperature Pulse Rate 78 80 75 Pulse Rate [Pulse Oximeter] Respiratory Rate Blood Pressure Blood Pressure [Ri ght Arm] Pulse Oximetry 95 96 97 Oxygen Delivery Me thod Fraction of Inspir ed Oxygen 08/29/23 15:35 08/29/23 15:40 08/29/23 15:45 Temperature Pulse Rate 79 74 83 Pulse Rate [Pulse Oximeter] Respiratory Rate Blood Pressure Blood Pressure [Ri ght Arm] Pulse Oximetry 91 94 91 Oxygen Delivery Me thod Fraction of Inspir ed Oxygen 08/29/23 15:50 08/29/23 15:55 08/29/23 16:00 Temperature Pulse Rate 79 79 Pulse Rate [Pulse Oximeter] Respiratory Rate Blood Pressure Blood Pressure [Ri ght Arm] 121/61 Pulse Oximetry 96 93 Oxygen Delivery Me thod Fraction of Inspir ed Oxygen 08/29/23 16:00 08/29/23 16:02 08/29/23 16:05 Temperature Pulse Rate 87 93 90 Pulse Rate [Pulse Oximeter] Respiratory Rate Blood Pressure 121/61 Blood Pressure [Ri ght Arm] Pulse Oximetry 90 81 L 90 Oxygen Delivery Me thod Fraction of Inspir ed Oxygen 08/29/23 16:10 08/29/23 16:15 08/29/23 16:20 Temperature Pulse Rate 89 88 83 Pulse Rate [Pulse Oximeter] Respiratory Rate Blood Pressure Blood Pressure [Ri ght Arm] Pulse Oximetry 87 L 94 94 Oxygen Delivery Me thod Fraction of Inspir ed Oxygen 08/29/23 16:25 08/29/23 16:30 08/29/23 16:35 Temperature Pulse Rate 92 99 110 H Pulse Rate [Pulse Oximeter] Respiratory Rate Blood Pressure Blood Pressure [Ri ght Arm] Pulse Oximetry 89 82 L 77 L Oxygen Delivery Me thod Fraction of Inspir ed Oxygen 08/29/23 16:40 08/29/23 16:45 08/29/23 16:50 Temperature Pulse Rate 103 H 106 H 102 H Pulse Rate [Pulse Oximeter] Respiratory Rate Blood Pressure Blood Pressure [Ri ght Arm] Pulse Oximetry 82 L 83 L 86 L Oxygen Delivery Me thod Fraction of Inspir ed Oxygen 08/29/23 16:55 08/29/23 17:00 08/29/23 17:00 Temperature Pulse Rate 102 H 102 H Pulse Rate [Pulse Oximeter] Respiratory Rate Blood Pressure Blood Pressure [Ri ght Arm] 136/77 Pulse Oximetry 85 L 88 Oxygen Delivery Me thod Fraction of Inspir ed Oxygen 08/29/23 17:02 08/29/23 17:05 08/29/23 17:10 Temperature Pulse Rate 100 98 96 Pulse Rate [Pulse Oximeter] Respiratory Rate Blood Pressure 136/77 Blood Pressure [Ri ght Arm] Pulse Oximetry 89 89 91 Oxygen Delivery Me thod Fraction of Inspir ed Oxygen 08/29/23 17:15 08/29/23 17:20 08/29/23 17:25 Temperature Pulse Rate 101 H 97 100 Pulse Rate [Pulse Oximeter] Respiratory Rate Blood Pressure Blood Pressure [Ri ght Arm] Pulse Oximetry 88 92 90 Oxygen Delivery Me thod Fraction of Inspir ed Oxygen 08/29/23 17:30 08/29/23 17:35 08/29/23 17:40 Temperature Pulse Rate 100 105 H 109 H Pulse Rate [Pulse Oximeter] Respiratory Rate Blood Pressure Blood Pressure [Ri ght Arm] Pulse Oximetry 90 86 L 87 L Oxygen Delivery Me thod Fraction of Inspir ed Oxygen 08/29/23 17:45 08/29/23 17:50 08/29/23 17:55 Temperature Pulse Rate 104 H 106 H 103 H Pulse Rate [Pulse Oximeter] Respiratory Rate Blood Pressure Blood Pressure [Ri ght Arm] Pulse Oximetry 86 L 88 89 Oxygen Delivery Me thod Fraction of Inspir ed Oxygen 08/29/23 18:00 08/29/23 18:00 08/29/23 18:02 Temperature Pulse Rate 102 H 112 H Pulse Rate [Pulse Oximeter] Respiratory Rate Blood Pressure 134/79 Blood Pressure [Ri ght Arm] 134/79 Pulse Oximetry 85 L 86 L Oxygen Delivery Me thod Fraction of Inspir ed Oxygen 08/29/23 18:05 08/29/23 18:10 08/29/23 18:15 Temperature Pulse Rate 110 H 113 H 113 H Pulse Rate [Pulse Oximeter] Respiratory Rate Blood Pressure Blood Pressure [Ri ght Arm] Pulse Oximetry 84 L 86 L 87 L Oxygen Delivery Me thod Fraction of Inspir ed Oxygen 08/29/23 18:20 08/29/23 18:25 08/29/23 18:30 Temperature Pulse Rate 112 H 110 H 111 H Pulse Rate [Pulse Oximeter] Respiratory Rate 25 H Blood Pressure Blood Pressure [Ri ght Arm] Pulse Oximetry 88 87 L 86 L Oxygen Delivery Me thod Fraction of Inspir ed Oxygen 08/29/23 18:35 08/29/23 18:40 08/29/23 18:45 Temperature Pulse Rate 110 H 112 H 113 H Pulse Rate [Pulse Oximeter] Respiratory Rate 25 H 23 25 H Blood Pressure Blood Pressure [Ri ght Arm] Pulse Oximetry 87 L 85 L 85 L Oxygen Delivery Me thod Fraction of Inspir ed Oxygen 08/29/23 19:00 08/29/23 20:00 08/29/23 20:00 Temperature 99.9 F H 99.9 F H Pulse Rate 113 H 113 H Pulse Rate [Pulse Oximeter] 113 H Respiratory Rate 22 22 Blood Pressure 120/63 124/73 Blood Pressure [Ri ght Arm] 124/73 Pulse Oximetry 84 L 84 L Oxygen Delivery Me thod Room Air Room Air Room Air Fraction of Inspir ed Oxygen 08/29/23 21:00 08/29/23 22:00 08/29/23 22:00 Temperature 98.6 F 96.5 F L 96.5 F L Pulse Rate 120 H 113 H Pulse Rate [Pulse Oximeter] 113 H Respiratory Rate 24 22 22 Blood Pressure 127/67 119/66 Blood Pressure [Ri ght Arm] 119/66 Pulse Oximetry 85 L 84 L 84 L Oxygen Delivery Me thod Room Air Room Air Room Air Fraction of Inspir ed Oxygen 08/29/23 23:00 08/29/23 23:00 08/29/23 23:00 Temperature Pulse Rate 112 H Pulse Rate [Pulse Oximeter] 113 H Respiratory Rate 12 12 Blood Pressure Blood Pressure [Ri ght Arm] Pulse Oximetry 88 Oxygen Delivery Me thod BiPAP Fraction of Inspir ed Oxygen 21 08/29/23 23:00 08/30/23 00:00 08/30/23 00:00 Temperature 97.4 F L 97.4 F L Pulse Rate 114 H 105 H Pulse Rate [Pulse Oximeter] 105 H Respiratory Rate 12 12 12 Blood Pressure 129/65 116/64 Blood Pressure [Ri ght Arm] 116/64 Pulse Oximetry 88 89 89 Oxygen Delivery Me thod BiPAP BiPAP BiPAP Fraction of Inspir ed Oxygen 21 08/30/23 01:00 08/30/23 02:00 08/30/23 02:00 Temperature 97.3 F L 97.0 F L 97.0 F L Pulse Rate 102 H 92 Pulse Rate [Pulse Oximeter] 92 Respiratory Rate 11 L 12 12 Blood Pressure 114/63 118/66 Blood Pressure [Ri ght Arm] 118/66 Pulse Oximetry 91 91 91 Oxygen Delivery Me thod BiPAP BiPAP BiPAP Fraction of Inspir ed Oxygen 21 08/30/23 03:00 08/30/23 03:00 08/30/23 04:00 Temperature 96.9 F L 97.0 F L Pulse Rate 89 Pulse Rate [Pulse Oximeter] 89 89 Respiratory Rate 12 12 12 Blood Pressure 131/72 Blood Pressure [Ri ght Arm] 146/81 H Pulse Oximetry 91 92 Oxygen Delivery Me thod BiPAP BiPAP Fraction of Inspir ed Oxygen 21 08/30/23 04:00 08/30/23 05:00 08/30/23 06:00 Temperature 97.0 F L 96.6 F L 96.6 F L Pulse Rate 89 86 Pulse Rate [Pulse Oximeter] 84 Respiratory Rate 12 10 L 10 L Blood Pressure 146/81 H 141/78 H Blood Pressure [Ri ght Arm] 136/81 Pulse Oximetry 92 91 91 Oxygen Delivery Me thod BiPAP BiPAP BiPAP Fraction of Inspir ed Oxygen 21 08/30/23 06:00 08/30/23 07:26 08/30/23 07:33 Temperature 96.6 F L Pulse Rate 84 81 Pulse Rate [Pulse Oximeter] 81 Respiratory Rate 10 L 10 L Blood Pressure 136/81 Blood Pressure [Ri ght Arm] 153/85 H Pulse Oximetry 91 93 Oxygen Delivery Me thod BiPAP BiPAP Fraction of Inspir ed Oxygen 21 08/30/23 07:33 08/30/23 07:33 08/30/23 08:10 Temperature Pulse Rate Pulse Rate [Pulse Oximeter] 85 Respiratory Rate 20 Blood Pressure Blood Pressure [Ri ght Arm] 155/84 H Pulse Oximetry 93 93 92 Oxygen Delivery Me thod BiPAP Room Air Fraction of Inspir ed Oxygen 08/30/23 09:14 08/30/23 10:09 08/30/23 12:51 Temperature 98.2 F Pulse Rate Pulse Rate [Pulse Oximeter] 112 H 104 H Respiratory Rate 18 24 Blood Pressure Blood Pressure [Ri ght Arm] 159/76 H 142/73 H Pulse Oximetry 86 L 89 Oxygen Delivery Me thod Room Air Room Air Fraction of Inspir ed Oxygen 21 Labs/Imaging Labs Labs: White blood cell count is down to 18. Progress Note: A&P Assessment and plan (1) Iatrogenic adrenal insufficiency: Problem details: - ordinarily on prednisone 10 mg po daily - will treat with stress doses of hydrocortisone x 2 days, then decrease back to 10 mg prednisone daily Status: Acute (2) Acute respiratory acidosis: Problem details: - VBG : pH 7.23, pCO2 82, pO2 50, HCO3- 34 - metabolic encephalopathy, improved with BIPap - Daily VBG Status: Acute (3) Leukocytosis: Status: Acute (4) Acute on chronic respiratory failure with hypoxia and hypercapnia: Problem details: - VBG : pH 7.23, pCO2 82, pO2 50, HCO3- 34 - metabolic encephalopathy, improved with BIPap - Daily VBG Status: Acute (5) Chronic steroid use: Problem details: - for RA, usual dose of prednisone 10 po daily Status: Acute (6) Decubitus ulcers: Problem details: - s/p debridement 08/28/23 - daily dressing changes - Wound Vac Status: Acute (7) Aure-rectal abscess: Problem details: -Perianal abscess with concern for necrotizing soft tissue infection. Low-grade fever, leukocytosis, lactate 1.1. Continue to trend. 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 Gallegos -wound cultures pending -Infectious Disease consulted recommending ceftriaxone IV 2 g Q 24 hours, Flagyl 500 mg p.o. q.8 hours, daptomycin (empiric coverage for enterococcus) 500 mg IV Q 24 hours. If found to be soft tissue infection, continue antibiotics for 2 weeks from most recent I&D. If osteomyelitis etiology, Infectious Disease service requests follow-up for further recommendations -daily CK while on Dapto -wound care recommendations per General Surgery -pain management to include scheduled Tylenol, p.r.n. Vistaril, ketorolac (1 time dose prn). 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 Hemodynamically improved and respiratory status is improved though still tenuous. White blood cell count coming down. -continue with VAC changes Friday -continue with b.i.d. dressing changes to perianal abscess. RN to perform evening dressing change. -as respiratory status improves will work on offloading given erythema on coccyx- apply Mepilex to this area for now. -continue broad antibiotics, will narrow as patient improves clinically - can stop daptomycin as cultures not showing Enterococcus.
[2023-08-30] MEDS: cefTRIAXone 2 GM in 0.9 % SODIUM CHLORIDE Mini-bag 100 ML IVPB (13:06)
[2023-08-30] MEDS: KETOROLAC 30 MG/ML inj IVP (15:50)
[2023-08-30 15:57] LABS: ABG PCO2 54 mmHG (35-45); Base Excess ABG 2.5 mmol/L (-3.0-3.0); Carboxyhemoglobin* < 1.0 % (0.0-5.0); HCO3 ABG 29 mmol/L (21-28); Oxygen Saturation ABG 95 % (92-100); PO2 ABG 81.7 mmHG (80-105); TCO2 ABG 27 mmol/l (21-30); pH ABG 7.34 (7.35-7.45)
--- NOTE | 2023-08-30 16:16 | PM.IMPN1 ---
Progress Note: A&P Assessment and plan (1) Iatrogenic adrenal insufficiency: Problem details: - ordinarily on prednisone 10 mg po daily - will treat with stress doses of hydrocortisone x 2 days, then decrease back to 10 mg prednisone daily - will decrease to 10 mg orally daily on 08/31/2023 Status: Acute (2) Acute respiratory acidosis: Problem details: - VBG : pH 7.23, pCO2 82, pO2 50, HCO3- 34 - metabolic encephalopathy, improved with BiPap - Daily VBG - appears to be acute on chronic. Need to assess for possible home BiPAP use. Will work with respiratory therapy to set up overnight oximetry, CPAP, BiPAP, with arterial blood gas measurements. Status: Acute (3) Leukocytosis: Problem details: - was 28,000 on presentation and is down to 18,000 on 08/30/2023 Status: Acute (4) Acute on chronic respiratory failure with hypoxia and hypercapnia: Problem details: - VBG : pH 7.23, pCO2 82, pO2 50, HCO3- 34 - metabolic encephalopathy, improved with BIPap - Daily VBG Status: Acute (5) Chronic steroid use: Problem details: - for RA, usual dose of prednisone 10 po daily Status: Acute (6) Decubitus ulcers: Problem details: - s/p debridement 08/28/23 - daily dressing changes - Wound Vac Status: Acute (7) Aure-rectal abscess: Problem details: -Perianal abscess with concern for necrotizing soft tissue infection. Low-grade fever, leukocytosis, lactate 1.1. Continue to trend. 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 Gallegos -wound cultures pending -Infectious Disease consulted recommending ceftriaxone IV 2 g Q 24 hours, Flagyl 500 mg p.o. q.8 hours, daptomycin (empiric coverage for enterococcus) 500 mg IV Q 24 hours. If found to be soft tissue infection, continue antibiotics for 2 weeks from most recent I&D. If osteomyelitis etiology, Infectious Disease service requests follow-up for further recommendations -08/30/2023: given current microbiology findings, will stop the daptomycin. Continue with ceftriaxone and metronidazole IV. -wound care recommendations per General Surgery -pain management to include scheduled Tylenol, p.r.n. Vistaril, ketorolac (1 time dose prn). Continue home gabapentin and prn oxycodone -MINIMIZE NARCOTICS WITH HISTORY OF PARALYZED VOCAL CORD, DIFFICULT INTUBATION/EXTUBATION -encourage postoperative pulmonary hygiene, aerobika, pulse oximetry with narcotics - 08/30/2023: Single dose of ketorolac 30 mg IV for pain management. Status: Acute (8) Oliguria after procedure: Problem details: - postoperative oliguria much improved on 08/30/2023. - no laboratory confirmation of acute kidney injury. Continue to monitor. Status: Acute Plan 1. Reviewed the above with the patient. Answered her questions. 2. Patient agree with above stated plans and recommendations. 3. Reviewed above with our general surgeon who is following with us, she is agreeable with above stated plans and recommendations as well. Time Spent With Patient Total time spent: 60 minute Subjective Date Seen: 08/30/23 Interval history: Hospital day 3, postoperative day 2, status post incision and drainage right perianal abscess with seton placement and bone biopsy chronic right ischial tuberosity wound. 08/30/23, preliminary wound culture reulsts: Aerobic Culture* Preliminary ML Organism 1 Gram positive cocci Quantity of Growth Small amount MODERATE AMT. ALPHA HEMOLYTIC STREP NOT STREP PNEUMONIAE NO FURTHER WORKUP MODERATE AMT. GRAM POSITIVE SHONNA RESEMBLING DIPHTHEROIDS NO FURTHER WORKUP On IV ceftriaxone, metronidazole, and daptomycin after discussion with Infectious Disease. Await final results of wound cultures and of bone biopsies and cultures. History of present illness: Prerna Major is a 77 year old female paraplegic since childhood, neurogenic bladder with chronic indwelling Cristobal catheter, rheumatoid arthritis on chronic steroid, acute on chronic anemia, lower extremity edema on Lasix, PUD, chronic pressure ulcers is admitted to the CCU from the OR after emergent surgery taken from the ED for further management. Patient was seen in the ED for rectal pain x1 week with inability to have a bowel movement. Was seen by the wound care nurse today (who manages her wound VAC) with concerns for perirectal wound that is leaking some fluid and blood. Has been constipated, 3-4 bowel movements per week. Reports chills without measured fever, increased shortness of breath. Has a history of vocal cord paralysis. Reports upper abdominal fullness, mild nausea, no vomiting. Overnight she required BiPAP and she only breathed at the setting of the BiPAP machine, 10 breaths per minute. I am concerned that she may require long-term use of BiPAP. For the most part her pain has been adequately managed today until we did the dressing change. Her surgeon was able to perform the dressing change noting that the surgical wounds appear clean and dry without extension. Does not appear to be worsening or progressing. Pain less tolerable since the dressing change despite treating her with oxycodone prior to the dressing change. Exam Narrative: Exam Narrative: When I 1st examined her this morning she was sound asleep only breathing with the BiPAP machine not breathing on her own. I later arouse her and she is alert and oriented to self, place, time, situation. Vision and hearing are grossly normal. Friendly, articulate, cooperative. Able to express her needs and wants. This is a vast improvement from when I 1st met her yesterday when she was encephalopathic from hypercapnic respiratory failure. Since we have been using the BiPAP she has no longer been encephalopathic. Eyes nose yesterday were roughly 3100 in and 1400 out. Continues to have better urine output today. Weight today 73.9 kg compared to 70.6 kg yesterday and 65.8 kg she 1st presented. Although she has decreased chest wall excursions her lungs nevertheless sound fairly clear without wheezing, rhonchi, or rales. Heart tones with regular rhythm, normal S1-S2. Abdomen with active bowel sounds, soft, nontender. Paraplegia. Bilateral lower extremity edema. Bilateral upper extremity edema. Const: Vital Signs, click to edit/add: Vital Signs - 24 hr 08/29/23 16:20 08/29/23 16:25 08/29/23 16:30 Temperature Pulse Rate 83 92 99 Pulse Rate [Pulse Oximeter] Respiratory Rate Blood Pressure Blood Pressure [Ri ght Arm] Pulse Oximetry 94 89 82 L Oxygen Delivery Me thod Fraction of Inspir ed Oxygen 08/29/23 16:35 08/29/23 16:40 08/29/23 16:45 Temperature Pulse Rate 110 H 103 H 106 H Pulse Rate [Pulse Oximeter] Respiratory Rate Blood Pressure Blood Pressure [Ri ght Arm] Pulse Oximetry 77 L 82 L 83 L Oxygen Delivery Me thod Fraction of Inspir ed Oxygen 08/29/23 16:50 08/29/23 16:55 08/29/23 17:00 Temperature Pulse Rate 102 H 102 H Pulse Rate [Pulse Oximeter] Respiratory Rate Blood Pressure Blood Pressure [Ri ght Arm] 136/77 Pulse Oximetry 86 L 85 L Oxygen Delivery Me thod Fraction of Inspir ed Oxygen 08/29/23 17:00 08/29/23 17:02 08/29/23 17:05 Temperature Pulse Rate 102 H 100 98 Pulse Rate [Pulse Oximeter] Respiratory Rate Blood Pressure 136/77 Blood Pressure [Ri ght Arm] Pulse Oximetry 88 89 89 Oxygen Delivery Me thod Fraction of Inspir ed Oxygen 08/29/23 17:10 08/29/23 17:15 08/29/23 17:20 Temperature Pulse Rate 96 101 H 97 Pulse Rate [Pulse Oximeter] Respiratory Rate Blood Pressure Blood Pressure [Ri ght Arm] Pulse Oximetry 91 88 92 Oxygen Delivery Me thod Fraction of Inspir ed Oxygen 08/29/23 17:25 08/29/23 17:30 08/29/23 17:35 Temperature Pulse Rate 100 100 105 H Pulse Rate [Pulse Oximeter] Respiratory Rate Blood Pressure Blood Pressure [Ri ght Arm] Pulse Oximetry 90 90 86 L Oxygen Delivery Me thod Fraction of Inspir ed Oxygen 08/29/23 17:40 08/29/23 17:45 08/29/23 17:50 Temperature Pulse Rate 109 H 104 H 106 H Pulse Rate [Pulse Oximeter] Respiratory Rate Blood Pressure Blood Pressure [Ri ght Arm] Pulse Oximetry 87 L 86 L 88 Oxygen Delivery Me thod Fraction of Inspir ed Oxygen 08/29/23 17:55 08/29/23 18:00 08/29/23 18:00 Temperature Pulse Rate 103 H 102 H Pulse Rate [Pulse Oximeter] Respiratory Rate Blood Pressure Blood Pressure [Ri ght Arm] 134/79 Pulse Oximetry 89 85 L Oxygen Delivery Me thod Fraction of Inspir ed Oxygen 08/29/23 18:02 08/29/23 18:05 08/29/23 18:10 Temperature Pulse Rate 112 H 110 H 113 H Pulse Rate [Pulse Oximeter] Respiratory Rate Blood Pressure 134/79 Blood Pressure [Ri ght Arm] Pulse Oximetry 86 L 84 L 86 L Oxygen Delivery Me thod Fraction of Inspir ed Oxygen 08/29/23 18:15 08/29/23 18:20 08/29/23 18:25 Temperature Pulse Rate 113 H 112 H 110 H Pulse Rate [Pulse Oximeter] Respiratory Rate Blood Pressure Blood Pressure [Ri ght Arm] Pulse Oximetry 87 L 88 87 L Oxygen Delivery Me thod Fraction of Inspir ed Oxygen 08/29/23 18:30 08/29/23 18:35 08/29/23 18:40 Temperature Pulse Rate 111 H 110 H 112 H Pulse Rate [Pulse Oximeter] Respiratory Rate 25 H 25 H 23 Blood Pressure Blood Pressure [Ri ght Arm] Pulse Oximetry 86 L 87 L 85 L Oxygen Delivery Me thod Fraction of Inspir ed Oxygen 08/29/23 18:45 08/29/23 19:00 08/29/23 20:00 Temperature 99.9 F H Pulse Rate 113 H 113 H Pulse Rate [Pulse Oximeter] 113 H Respiratory Rate 25 H 22 Blood Pressure 120/63 Blood Pressure [Ri ght Arm] 124/73 Pulse Oximetry 85 L 84 L Oxygen Delivery Me thod Room Air Room Air Fraction of Inspir ed Oxygen 08/29/23 20:00 08/29/23 21:00 08/29/23 22:00 Temperature 99.9 F H 98.6 F 96.5 F L Pulse Rate 113 H 120 H Pulse Rate [Pulse Oximeter] 113 H Respiratory Rate 22 24 22 Blood Pressure 124/73 127/67 Blood Pressure [Ri ght Arm] 119/66 Pulse Oximetry 84 L 85 L 84 L Oxygen Delivery Me thod Room Air Room Air Room Air Fraction of Inspir ed Oxygen 08/29/23 22:00 08/29/23 23:00 08/29/23 23:00 Temperature 96.5 F L Pulse Rate 113 H 112 H Pulse Rate [Pulse Oximeter] 113 H Respiratory Rate 22 12 Blood Pressure 119/66 Blood Pressure [Ri ght Arm] Pulse Oximetry 84 L Oxygen Delivery Me thod Room Air Fraction of Inspir ed Oxygen 08/29/23 23:00 08/29/23 23:00 08/30/23 00:00 Temperature 97.4 F L Pulse Rate 114 H Pulse Rate [Pulse Oximeter] 105 H Respiratory Rate 12 12 12 Blood Pressure 129/65 Blood Pressure [Ri ght Arm] 116/64 Pulse Oximetry 88 88 89 Oxygen Delivery Me thod BiPAP BiPAP BiPAP Fraction of Inspir ed Oxygen 21 21 21 08/30/23 00:00 08/30/23 01:00 08/30/23 02:00 Temperature 97.4 F L 97.3 F L 97.0 F L Pulse Rate 105 H 102 H Pulse Rate [Pulse Oximeter] 92 Respiratory Rate 12 11 L 12 Blood Pressure 116/64 114/63 Blood Pressure [Ri ght Arm] 118/66 Pulse Oximetry 89 91 91 Oxygen Delivery Me thod BiPAP BiPAP BiPAP Fraction of Inspir ed Oxygen 21 21 08/30/23 02:00 08/30/23 03:00 08/30/23 03:00 Temperature 97.0 F L 96.9 F L Pulse Rate 92 89 Pulse Rate [Pulse Oximeter] 89 Respiratory Rate 12 12 12 Blood Pressure 118/66 131/72 Blood Pressure [Ri ght Arm] Pulse Oximetry 91 91 Oxygen Delivery Me thod BiPAP BiPAP Fraction of Inspir ed Oxygen 21 08/30/23 04:00 08/30/23 04:00 08/30/23 05:00 Temperature 97.0 F L 97.0 F L 96.6 F L Pulse Rate 89 86 Pulse Rate [Pulse Oximeter] 89 Respiratory Rate 12 12 10 L Blood Pressure 146/81 H 141/78 H Blood Pressure [Ri ght Arm] 146/81 H Pulse Oximetry 92 92 91 Oxygen Delivery Me thod BiPAP BiPAP BiPAP Fraction of Inspir ed Oxygen 21 08/30/23 06:00 08/30/23 06:00 08/30/23 07:26 Temperature 96.6 F L 96.6 F L Pulse Rate 84 81 Pulse Rate [Pulse Oximeter] 84 Respiratory Rate 10 L 10 L Blood Pressure 136/81 Blood Pressure [Ri ght Arm] 136/81 Pulse Oximetry 91 91 Oxygen Delivery Me thod BiPAP BiPAP Fraction of Inspir ed Oxygen 21 08/30/23 07:33 08/30/23 07:33 08/30/23 07:33 Temperature Pulse Rate Pulse Rate [Pulse Oximeter] 81 Respiratory Rate 10 L Blood Pressure Blood Pressure [Ri ght Arm] 153/85 H Pulse Oximetry 93 93 93 Oxygen Delivery Me thod BiPAP BiPAP Fraction of Inspir ed Oxygen 08/30/23 08:10 08/30/23 09:14 08/30/23 10:09 Temperature Pulse Rate Pulse Rate [Pulse Oximeter] 85 112 H Respiratory Rate 20 18 Blood Pressure Blood Pressure [Ri ght Arm] 155/84 H 159/76 H Pulse Oximetry 92 86 L Oxygen Delivery Me thod Room Air Room Air Fraction of Inspir ed Oxygen 21 08/30/23 12:51 08/30/23 15:22 08/30/23 15:22 Temperature 98.2 F 98.3 F Pulse Rate Pulse Rate [Pulse Oximeter] 104 H 103 H Respiratory Rate 24 16 Blood Pressure Blood Pressure [Ri ght Arm] 142/73 H 143/77 H Pulse Oximetry 89 89 89 Oxygen Delivery Me thod Room Air Room Air Room Air Fraction of Inspir ed Oxygen Labs Labs: Laboratory Results - last 24 hr 08/30/23 08/30/23 08/30/23 06:35 12:10 15:55 WBC 18.60 H RBC 4.44 Hgb 11.7 L Hct 40.3 MCV 91 MCH 26 MCHC 29 L Plt Count 357 ABG pH 7.38 7.34 L ABG pCO2 48 H 54 H ABG pO2 54.7 L 81.7 ABG HCO3 28 29 H ABG Total CO2 26 27 ABG O2 Saturation 89 L 95 ABG Base Excess 2.3 2.5 VBG pH 7.337 VBG pCO2 57 H VBG pO2 42.4 VBG HCO3 31 H Carboxyhemoglobin 1.1 < 1.0 Sodium 141 Potassium 4.3 Chloride 107 Carbon Dioxide 29 Anion Gap 5 L BUN 20 Creatinine 0.3 L Estimated Creat Clear 34.38 Estimated GFR 110 Glucose 126 H Calcium 7.8 L Total Creatine Kinase < 20 L
[2023-08-30] MEDS: ENOXAPARIN 40 MG/0.4 ML INJ SUBCUT (20:40)
[2023-08-31] VITALS (10 sets, daily range): BP systolic 148–195; BP diastolic 87–115; PULSE 78–122; RESP 15–20; TEMP 35.9–37.1; O2SAT 83–96
[2023-08-31] MEDS: 0.9 % SODIUM CHLORIDE 1000 ml 1,000 ML 125 ML IV (04:47)
[2023-08-31] MEDS: HYDROCORTISONE SOD SUCCINATE 50 MG/ML inj IVP ×2 (06:38→15:55)
[2023-08-31] MEDS: SODIUM CHLORIDE 0.9 % (FLUSH) 10 ML SYRINGE 5 ML IVF ×6 (06:39→21:24)
--- NOTE | 2023-08-31 06:57 | PC.NURSE ---
END OF SHIFT NOTE: PT PLEASANT AND COOPERATIVE. PARAPLEGIC SINCE CHILDHOOD. A&Ox3. PT DENIES CP, SOB, N/V. PT BECOMES SOB WHEN SPEAKING. PT DOES NOT AMBULATE; TURNED AND REPOSITIONED FREQUENTLY. VSS ON RA/CPAP; AFEBRILE. PT HAD SLEEP STUDY ON CPAP TONIGHT. TELE READS SINUS TACH. PT REFUSED TO BE REPOSITIONED SEVERAL TIMES; PT EDUCATED ON NEED TO REPOSITION; PT LATER AGREED. HELLER PATENT WITH DARK BRITTANEY/TEA COLORED URINE. WOUND TO R BUTTOCK/HIP (WOUND VAC), SACRUM, RIGHT UPPER BUTTOCK x2 COVERED WITH MEPILEX C/D/I. INTERMITTENT PRODUCTIVE COUGH. LS WITH EXPIRATORY RHONCHI. PT BECOMES SOB WHEN TALKING. CALL LIGHT WITHIN PT?S REACH. PT PLACED ON CPAP @5 AND REMAINS ON AT THE END OF THIS HARDBOARD GRINDER'S SHIFT.
[2023-08-31 07:07] LABS: PCO2 VBG 56 mmHG (40-50); PO2 VBG 40.2 mmHG (25-47); pH VBG 7.322 (7.32-7.43)
[2023-08-31 07:08] LABS: HCO3 VBG 29 mmol/L (21-28)
[2023-08-31 07:12] LABS: Hematocrit 43.4 % (33.0-51.0); Hemoglobin* 12.5 gm/dL (12.0-16.0); Mean Corpuscular HGB Conc 29 gm/dL (32-36); Mean Corpuscular Hemoglobin 26 pg (26-34); Mean Corpuscular Volume 90 fL (80-100); Platelet Count* 375 K/uL (140-440); Red Blood Count 4.84 m/uL (4.00-5.20); White Blood Count* 19.21 K/uL (4.50-11.00)
[2023-08-31 07:14] LABS: Slide Review Reflex No
[2023-08-31 07:21] LABS: Chloride* 110 mmol/L (96-114); Potassium* 3.9 mmol/L (3.6-5.1); Sodium* 142 mmol/L (135-149)
[2023-08-31 07:24] LABS: Blood Urea Nitrogen* 22 mg/dL (7-30); Carbon Dioxide* 28 mmol/L (20-32); Creatine Kinase* < 20 U/L (41-117); Creatinine* 0.3 mg/dL (0.5-1.5); Est. Creatinine Clearance* 34.38; Estimated Glomerular Filt Rate 110 ml/min
[2023-08-31 07:25] LABS: Anion Gap 4 mEq/L (7-15); Calcium* 7.8 mg/dL (8.4-10.6); Glucose* 154 mg/dL (60-115)
[2023-08-31 08:14] LABS: ABG PCO2 45 mmHG (35-45); Base Excess ABG 1.5 mmol/L (-3.0-3.0); Carboxyhemoglobin* 1.1 % (0.0-5.0); HCO3 ABG 27 mmol/L (21-28); Oxygen Saturation ABG 91 % (92-100); PO2 ABG 60.8 mmHG (80-105); TCO2 ABG 25 mmol/l (21-30); pH ABG 7.38 (7.35-7.45)
[2023-08-31] MEDS: predniSONE 5 MG TABLET 10 MG PO (08:19)
[2023-08-31] MEDS: ACETAMINOPHEN 325 MG TABLET 650 MG PO ×2 (08:19→21:22)
[2023-08-31] MEDS: OMEPRAZOLE 20 MG CAPSULE DR PO ×2 (08:20→21:22)
[2023-08-31] MEDS: metroNIDAZOLE 500 MG TABLET PO ×3 (08:20→21:22)
[2023-08-31] MEDS: METOPROLOL TARTRATE 25 MG TABLET 12.5 MG PO ×2 (08:20→21:23)
[2023-08-31] MEDS: GABAPENTIN 300 MG CAPSULE PO ×3 (08:20→21:22)
[2023-08-31] MEDS: PANTOPRAZOLE SODIUM 40 MG INJ IVP (08:20)
[2023-08-31] MEDS: FUROSEMIDE 10 MG/ML inj 20 MG IVP (08:31)
--- NOTE | 2023-08-31 11:07 | PT.IPDN ---
PT note: update from orders for PT/OT received. Pt reports her baseline is jacobo transfer, mainly in bed, minimally up to her wc with SCOTT. Discussed pt having her wc brought here and we can get her up with ceiling lift, pt states, Not today. Nsg informed to use ceiling lift if pt getting up to chair, no further PT recommended at this time.
[2023-08-31] MEDS: LACTOBACILLUS ACIDOPHILUS 1 TABLET 2 TAB PO ×2 (11:49→17:36)
[2023-08-31] MEDS: OXYCODONE 5 MG TABLET PO ×2 (11:50→17:36)
--- NOTE | 2023-08-31 12:46 | P.GSPN_ITS ---
Subjective Subjective Date Seen: 08/31/23 Interval history: Mary feels about the same. No updates. Having some pain in her bottom but this is not worse than yesterday. Respiratory status is stable. Exam Narrative: Exam Narrative: General: No acute distress CV: Mild tachycardia at 100 Respiratory: Breathing is nonlabored; at her baseline Rectal: Perirectal skin without erythema. Dressing changed. Grayish discharge. Unable to see wound base because of how deep it is located. Soilage on gauze is less than yesterday however Const: Vital Signs, click to edit/add: Vital Signs - 24 hr 08/30/23 12:51 08/30/23 15:22 08/30/23 15:22 Temperature 98.2 F 98.3 F Pulse Rate Pulse Rate [Pulse Oximeter] 104 H 103 H Respiratory Rate 24 16 Blood Pressure [Ri ght Arm] 142/73 H 143/77 H Pulse Oximetry 89 89 89 Oxygen Delivery Me thod Room Air Room Air Room Air Fraction of Inspir ed Oxygen 08/30/23 15:23 08/30/23 16:28 08/30/23 17:53 Temperature 98.1 F Pulse Rate 105 H Pulse Rate [Pulse Oximeter] 101 H Respiratory Rate 24 Blood Pressure [Ri ght Arm] 151/80 H Pulse Oximetry 88 Oxygen Delivery Me thod Room Air Room Air Fraction of Inspir ed Oxygen 0.21 08/30/23 19:30 08/30/23 19:30 08/30/23 19:30 Temperature 100.3 F H Pulse Rate 125 H Pulse Rate [Pulse Oximeter] 124 H Respiratory Rate 24 24 Blood Pressure [Ri ght Arm] 169/90 H Pulse Oximetry 84 L 84 L Oxygen Delivery Me thod Room Air Room Air Fraction of Inspir ed Oxygen 08/30/23 19:30 08/30/23 23:00 08/31/23 03:00 Temperature 96.9 F L 96.6 F L Pulse Rate Pulse Rate [Pulse Oximeter] 124 H 109 H 111 H Respiratory Rate 24 18 15 Blood Pressure [Ri ght Arm] 158/97 H 148/96 H Pulse Oximetry 88 88 Oxygen Delivery Me thod CPAP CPAP Fraction of Inspir ed Oxygen 0.21 0.21 08/31/23 07:03 08/31/23 07:34 08/31/23 08:11 Temperature 98.7 F Pulse Rate 109 H Pulse Rate [Pulse Oximeter] 111 H Respiratory Rate 20 Blood Pressure [Ri ght Arm] 195/115 H Pulse Oximetry 89 88 Oxygen Delivery Me thod CPAP Room Air Fraction of Inspir ed Oxygen 08/31/23 08:52 08/31/23 08:52 08/31/23 11:44 Temperature 97.3 F L Pulse Rate Pulse Rate [Pulse Oximeter] 101 H Respiratory Rate 18 Blood Pressure [Ri ght Arm] 168/87 H Pulse Oximetry 88 Oxygen Delivery Me thod Room Air Room Air Fraction of Inspir ed Oxygen 0.21 21 Labs/Imaging Labs Labs: White blood cell count remains elevated at 19. Culture yesterday showed strep, however today it is growing Enterococcus Progress Note: A&P Assessment and plan (1) Iatrogenic adrenal insufficiency: Problem details: - ordinarily on prednisone 10 mg po daily - will treat with stress doses of hydrocortisone x 2 days, then decrease back to 10 mg prednisone daily - will decrease to 10 mg orally daily on 08/31/2023 Status: Acute (2) Hypotension due to hypovolemia: Problem details: - possibly from 3rd spacing, acute adrenal insufficiency, opioids, doubt sepsis - NS IVF - stress doses of hydrocortisone x 2 days, then on Friday09/01/2023 resume prednisone 10 mg po daily Status: Acute (3) Leukocytosis: Problem details: - was 28,000 on presentation and is down to 18,000 on 08/30/2023 Status: Acute (4) Acute respiratory acidosis: Problem details: - VBG : pH 7.23, pCO2 82, pO2 50, HCO3- 34 - metabolic encephalopathy, improved with BiPap - Daily VBG - appears to be acute on chronic. Need to assess for possible home BiPAP use. Will work with respiratory therapy to set up overnight oximetry, CPAP, BiPAP, with arterial blood gas measurements. Status: Acute (5) Acute on chronic respiratory failure with hypoxia and hypercapnia: Problem details: - VBG : pH 7.23, pCO2 82, pO2 50, HCO3- 34 - metabolic encephalopathy, improved with BIPap - Daily VBG Status: Acute (6) Chronic steroid use: Problem details: - for RA, usual dose of prednisone 10 po daily Status: Acute (7) Decubitus ulcers: Problem details: - s/p debridement 08/28/23 - daily dressing changes - Wound Vac Status: Acute (8) Aure-rectal abscess: Problem details: -Perianal abscess with concern for necrotizing soft tissue infection. Low-grade fever, leukocytosis, lactate 1.1. Continue to trend. 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 Gallegos -wound cultures pending -Infectious Disease consulted recommending ceftriaxone IV 2 g Q 24 hours, Flagyl 500 mg p.o. q.8 hours, daptomycin (empiric coverage for enterococcus) 500 mg IV Q 24 hours. If found to be soft tissue infection, continue antibiotics for 2 w eeks from most recent I&D. If osteomyelitis etiology, Infectious Disease service requests follow-up for further recommendations -08/30/2023: given current microbiology findings, will stop the daptomycin. Continue with ceftriaxone and metronidazole IV. -wound care recommendations per General Surgery -pain management to include scheduled Tylenol, p.r.n. Vistaril, ketorolac (1 time dose prn). Continue home gabapentin and prn oxycodone -MINIMIZE NARCOTICS WITH HISTORY OF PARALYZED VOCAL CORD, DIFFICULT INTUBATION/EXTUBATION -encourage postoperative pulmonary hygiene, aerobika, pulse oximetry with narcotics - 08/30/2023: Single dose of ketorolac 30 mg IV for pain management. Status: Acute Plan Overall Mary appears to be stable today though her white count has not come down as I would like. Review of her culture shows that she is actually now growing Enterococcus from her wound. Daptomycin was stopped yesterday because it appeared as though she was growing strep. - I have added daptomycin back. Will need to review antibiotics with ID to see if we can narrow or change them -will see how she is doing tomorrow. -there has been some confusion about dressing changes. The patient should be getting them b.i.d.. This has been specified in the order.
[2023-08-31] MEDS: cefTRIAXone 2 GM in 0.9 % SODIUM CHLORIDE Mini-bag 100 ML IVPB (13:40)
[2023-08-31] MEDS: DAPTOmycin 50 MG/ML inj 500 MG IVP (14:20)
--- NOTE | 2023-08-31 15:06 | PM.IMPN1 ---
Progress Note: A&P Assessment and plan (1) Iatrogenic adrenal insufficiency: Problem details: - ordinarily on prednisone 10 mg po daily - will treat with stress doses of hydrocortisone x 2 days, then decrease back to 10 mg prednisone daily - will decrease to 10 mg orally daily on 08/31/2023 Status: Acute (2) Hypotension due to hypovolemia: Problem details: - possibly from 3rd spacing, acute adrenal insufficiency, opioids, doubt sepsis - NS IVF - stress doses of hydrocortisone x 2 days, then on Friday09/01/2023 resume prednisone 10 mg po daily Status: Acute (3) Leukocytosis: Problem details: - was 28,000 on presentation and is down to 19,000 on 08/31/2023 Status: Acute (4) Acute respiratory acidosis: Problem details: - VBG : pH 7.23, pCO2 82, pO2 50, HCO3- 34 - metabolic encephalopathy, improved with BiPap - Daily VBG - appears to be acute on chronic. Need to assess for possible home BiPAP use. Will work with respiratory therapy to set up overnight oximetry, CPAP, BiPAP, with arterial blood gas measurements. Will attempt BiPAP overnight with overnight oximetry and arterial blood gas. Status: Acute (5) Acute on chronic respiratory failure with hypoxia and hypercapnia: Problem details: - VBG : pH 7.23, pCO2 82, pO2 50, HCO3- 34 - metabolic encephalopathy, improved with BIPap - Daily VBG Status: Acute (6) Chronic steroid use: Problem details: - for RA, usual dose of prednisone 10 po daily Status: Acute (7) Decubitus ulcers: Problem details: - s/p debridement 08/28/23 - daily dressing changes - Wound Vac Status: Acute (8) Aure-rectal abscess: Problem details: -Perianal abscess with concern for necrotizing soft tissue infection. Low-grade fever, leukocytosis, lactate 1.1. Continue to trend. 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 Gallegos -wound cultures pending -Infectious Disease consulted recommending ceftriaxone IV 2 g Q 24 hours, Flagyl 500 mg p.o. q.8 hours, daptomycin (empiric coverage for enterococcus) 500 mg IV Q 24 hours. If found to be soft tissue infection, continue antibiotics for 2 weeks from most recent I&D. If osteomyelitis etiology, Infectious Disease service requests follow-up for further recommendations -08/30/2023: given current microbiology findings, will stop the daptomycin. Continue with ceftriaxone and metronidazole IV. - 08/31/2023: Restarted daptomycin given the Enterococcus found in the wound cultures and urine culture. -wound care recommendations per General Surgery -pain management to include scheduled Tylenol, p.r.n. Vistaril, ketorolac (1 time dose prn). Continue home gabapentin and prn oxycodone -MINIMIZE NARCOTICS WITH HISTORY OF PARALYZED VOCAL CORD, DIFFICULT INTUBATION/EXTUBATION -encourage postoperative pulmonary hygiene, aerobika, pulse oximetry with narcotics - 08/30/2023: Single dose of ketorolac 30 mg IV for pain management. Status: Acute Plan 1. Reviewed impression with patient and family. 2. Plan as specified above. 3. Continue work with general surgeon. 4. Patient family agreeable as specified. Time Spent With Patient Total time spent: 40 minutes Subjective Date Seen: 08/31/23 Interval history: Hospital day 3, postoperative day 2, status post incision and drainage right perianal abscess with seton placement and bone biopsy chronic right ischial tuberosity wound. 08/31/23, preliminary wound culture reulsts: Gram Stain* Final ML Result NO ORGANISM SEEN Aerobic Culture* Preliminary ML Organism 1 Enterococcus faecalis Quantity of Growth Small amount MODERATE AMT. ALPHA HEMOLYTIC STREP NOT STREP PNEUMONIAE NO FURTHER WORKUP MODERATE AMT. GRAM POSITIVE SHONNA RESEMBLING DIPHTHEROIDS NO FURTHER WORKUP E faecalis DAWSON RX --------- --- Ampicillin <=2 S Daptomycin 4 S Linezolid 2 S Tigecycline <=0.12 S Vancomycin 1 S Anaerobic Culture* Preliminary ML Culture in Progress On IV ceftriaxone, metronidazole, and daptomycin after discussion with Infectious Disease. Yesterday we stopped the daptomycin, given the report only specified alpha hemopytic strep not pneumo and diphtheroids. Restarted the daptomycin today with enterococcus reported. Await final results of wound cultures and of bone biopsies and cultures. Continue to await bone biopsy microbiology results. History of present illness: Prerna Major is a 77 year old female paraplegic since childhood, neurogenic bladder with chronic indwelling Cristobal catheter, rheumatoid arthritis on chronic steroid, acute on chronic anemia, lower extremity edema on Lasix, PUD, chronic pressure ulcers is admitted to the CCU from the OR after emergent surgery taken from the ED for further management. Patient was seen in the ED for rectal pain x1 week with inability to have a bowel movement. Was seen by the wound care nurse today (who manages her wound VAC) with concerns for perirectal wound that is leaking some fluid and blood. Has been constipated, 3-4 bowel movements per week. Reports chills without measured fever, increased shortness of breath. Has a history of vocal cord paralysis. Reports upper abdominal fullness, mild nausea, no vomiting. We are in the process of trying to establish whether not she meets criteria for home BiPAP. As such last night she was on CPAP overnight. Patient awoke this morning stating she did not feel rested. I reviewed the overnight oximetry study which showed desaturations throughout the entire night despite being on the CPAP. PCO2 this morning on CPAP was elevated at 53. Intend to proceed with trying to establish as if she does better on BiPAP settings. Pain is better controlled today. She remains sleepy and tired after poor night's rest last night. Eating and drinking. Generally improving. Exam Narrative: Exam Narrative: Examine her in her hospital room. Initially I examine her while she is on CPAP and she is sound asleep. I later re-examine her while she is awake. She is alert and oriented to self, place, time, situation. Friendly, articulate, cooperative. Lungs fairly clear with decreased breath sounds in bases. Heart tones with regular rhythm. Abdomen with active bowel sounds, soft, nontender. Edema bilateral lower extremities and bilateral extremities. Paraplegia, chronic. Wounds are clean and dry with dressing change. Const: Vital Signs, click to edit/add: Vital Signs - 24 hr 08/30/23 15:22 08/30/23 15:22 08/30/23 15:23 Temperature 98.3 F Pulse Rate 105 H Pulse Rate [Pulse Oximeter] 103 H Respiratory Rate 16 Blood Pressure [Ri ght Arm] 143/77 H Pulse Oximetry 89 89 Oxygen Delivery Me thod Room Air Room Air Fraction of Inspir ed Oxygen 08/30/23 16:28 08/30/23 17:53 08/30/23 19:30 Temperature 98.1 F Pulse Rate 125 H Pulse Rate [Pulse Oximeter] 101 H Respiratory Rate 24 Blood Pressure [Ri ght Arm] 151/80 H Pulse Oximetry 88 Oxygen Delivery Me thod Room Air Room Air Fraction of Inspir ed Oxygen 0.21 08/30/23 19:30 08/30/23 19:30 08/30/23 19:30 Temperature 100.3 F H Pulse Rate Pulse Rate [Pulse Oximeter] 124 H 124 H Respiratory Rate 24 24 24 Blood Pressure [Ri ght Arm] 169/90 H Pulse Oximetry 84 L 84 L Oxygen Delivery Me thod Room Air Room Air Fraction of Inspir ed Oxygen 08/30/23 23:00 08/31/23 03:00 08/31/23 07:03 Temperature 96.9 F L 96.6 F L Pulse Rate 109 H Pulse Rate [Pulse Oximeter] 109 H 111 H Respiratory Rate 18 15 Blood Pressure [Ri ght Arm] 158/97 H 148/96 H Pulse Oximetry 88 88 Oxygen Delivery Me thod CPAP CPAP Fraction of Inspir ed Oxygen 0.21 0.21 08/31/23 07:34 08/31/23 08:11 08/31/23 08:52 Temperature 98.7 F Pulse Rate Pulse Rate [Pulse Oximeter] 111 H Respiratory Rate 20 Blood Pressure [Ri ght Arm] 195/115 H Pulse Oximetry 89 88 Oxygen Delivery Me thod CPAP Room Air Fraction of Inspir ed Oxygen 0.21 08/31/23 08:52 08/31/23 11:44 Temperature 97.3 F L Pulse Rate Pulse Rate [Pulse Oximeter] 101 H Respiratory Rate 18 Blood Pressure [Ri ght Arm] 168/87 H Pulse Oximetry 88 Oxygen Delivery Me thod Room Air Room Air Fraction of Inspir ed Oxygen 21 Documenting provider has reviewed patient's vital signs: yes Labs Labs: Laboratory Results - last 24 hr 08/30/23 08/31/23 08/31/23 15:55 06:10 08:10 WBC 19.21 H RBC 4.84 Hgb 12.5 Hct 43.4 MCV 90 MCH 26 MCHC 29 L Plt Count 375 ABG pH 7.34 L 7.38 ABG pCO2 54 H 45 ABG pO2 81.7 60.8 L ABG HCO3 29 H 27 ABG Total CO2 27 25 ABG O2 Saturation 95 91 L ABG Base Excess 2.5 1.5 VBG pH 7.322 VBG pCO2 56 H VBG pO2 40.2 VBG HCO3 29 H Carboxyhemoglobin < 1.0 1.1 Sodium 142 Potassium 3.9 Chloride 110 Carbon Dioxide 28 Anion Gap 4 L BUN 22 Creatinine 0.3 L Estimated Creat Clear 34.38 Estimated GFR 110 Glucose 154 H Calcium 7.8 L Total Creatine Kinase < 20 L
[2023-08-31 17:36] LABS: ABG PCO2 45 mmHG (35-45); Base Excess ABG 2.9 mmol/L (-3.0-3.0); HCO3 ABG 28 mmol/L (21-28); Oxygen Saturation ABG 94 % (92-100); TCO2 ABG 26 mmol/l (21-30); pH ABG 7.41 (7.35-7.45)
[2023-08-31] MEDS: 0.9 % SODIUM CHLORIDE 1000 ml 1,000 ML 75 ML IV (17:37)
[2023-08-31 17:39] LABS: Carboxyhemoglobin* < 1.0 % (0.0-5.0)
[2023-08-31] MEDS: ENOXAPARIN 40 MG/0.4 ML INJ SUBCUT (21:24)
[2023-08-31] MEDS: hydrOXYzine pamoate 25 MG CAPSULE PO (21:28)
[2023-09-01] VITALS (7 sets, daily range): BP systolic 110–178; BP diastolic 59–109; PULSE 79–101; RESP 11–20; TEMP 35.9–37.3; O2SAT 92–98
[2023-09-01] MEDS: 0.9 % SODIUM CHLORIDE 1000 ml 1,000 ML 75 ML IV (06:12)
[2023-09-01 06:24] LABS: Hematocrit 41.1 % (33.0-51.0); Hemoglobin* 12.1 gm/dL (12.0-16.0); Mean Corpuscular HGB Conc 29 gm/dL (32-36); Mean Corpuscular Hemoglobin 26 pg (26-34); Mean Corpuscular Volume 89 fL (80-100); Platelet Count* 306 K/uL (140-440); Red Blood Count 4.63 m/uL (4.00-5.20)
[2023-09-01 06:26] LABS: HCO3 VBG 30 mmol/L (21-28); PCO2 VBG 56 mmHG (40-50); PO2 VBG 41.1 mmHG (25-47)
[2023-09-01 06:28] LABS: Slide Review Reflex No
[2023-09-01 06:42] LABS: Chloride* 110 mmol/L (96-114); Sodium* 144 mmol/L (135-149)
[2023-09-01 06:43] LABS: Potassium* 3.4 mmol/L (3.6-5.1)
[2023-09-01 06:45] LABS: Anion Gap 4 mEq/L (7-15); Carbon Dioxide* 30 mmol/L (20-32); Creatinine* 0.4 mg/dL (0.5-1.5); Est. Creatinine Clearance* 34.38; Estimated Glomerular Filt Rate 103 ml/min
[2023-09-01 06:46] LABS: Blood Urea Nitrogen* 22 mg/dL (7-30); Calcium* 7.4 mg/dL (8.4-10.6)
[2023-09-01 06:49] LABS: Creatine Kinase* < 20 U/L (41-117)
[2023-09-01 07:02] LABS: Glucose* 146 mg/dL (60-115)
--- NOTE | 2023-09-01 07:10 | PC.NURSE ---
END OF SHIFT NOTE: PT PLEASANT AND COOPERATIVE. A&Ox3. DENIES CP, SOB, N/V. PARAPLEGIC; PT TURNED AND REPOSITIONED. SACRAL WOUND PACKING AND DRESSING CHANGED. RIGHT UPPER BUTTOCK WOUND COVERED WITH MEPILEX C/D/I. WOUND VAC C/D/I, SCANT OUTPUT, ON CONTINUOUS SUCTION OF 125MMHG. VSS ON RA/BiPAP; AFEBRILE. PT PLACED ON BiPAP @2245. TELE READS NSR/SINUS TACH. CALL LIGHT WITHIN PT?S REACH. PT SLEPT WELL THROUGHOUT NIGHT. UNEVENTFUL SHIFT.?
--- NOTE | 2023-09-01 07:16 | PM.GSPN ---
Subjective Subjective Date Seen: 09/01/23 Interval history: Mary is stable. Requiring intermittent BiPAP. Exam Narrative: Exam Narrative: General: No acute distress Breathing: Appears to be at patient's baseline, mildly short of breath. Wound: Deferred today as patient was on BiPAP when I visited her Const: Vital Signs, click to edit/add: Vital Signs - 24 hr 08/31/23 07:34 08/31/23 08:11 08/31/23 08:52 Temperature 98.7 F Pulse Rate Pulse Rate [Pulse Oximeter] 111 H Respiratory Rate 20 Blood Pressure [Ri ght Arm] 195/115 H Pulse Oximetry 89 88 Oxygen Delivery Me thod CPAP Room Air Fraction of Inspir ed Oxygen 0.21 08/31/23 08:52 08/31/23 11:44 08/31/23 15:05 Temperature 97.3 F L Pulse Rate 86 Pulse Rate [Pulse Oximeter] 101 H Respiratory Rate 18 Blood Pressure [Ri ght Arm] 168/87 H Pulse Oximetry 88 Oxygen Delivery Me thod Room Air Room Air Fraction of Inspir ed Oxygen 21 08/31/23 15:48 08/31/23 17:22 08/31/23 20:00 Temperature 98.6 F 97.3 F L Pulse Rate Pulse Rate [Pulse Oximeter] 78 121 H Respiratory Rate 18 20 Blood Pressure [Ri ght Arm] 167/95 H 162/89 H Pulse Oximetry 92 96 83 L Oxygen Delivery Me thod BiPAP BiPAP Room Air Fraction of Inspir ed Oxygen 08/31/23 20:00 08/31/23 20:00 08/31/23 20:00 Temperature Pulse Rate 122 H Pulse Rate [Pulse Oximeter] 121 H Respiratory Rate 20 20 Blood Pressure [Ri ght Arm] Pulse Oximetry 83 L Oxygen Delivery Me thod Room Air Fraction of Inspir ed Oxygen 08/31/23 23:00 09/01/23 03:00 Temperature 96.6 F L Pulse Rate Pulse Rate [Pulse Oximeter] 92 83 Respiratory Rate 17 11 L Blood Pressure [Ri ght Arm] 158/98 H Pulse Oximetry 86 L 92 Oxygen Delivery Me thod BiPAP BiPAP Fraction of Inspir ed Oxygen 21 21 Progress Note: A&P Assessment and plan (1) Iatrogenic adrenal insufficiency: Problem details: - ordinarily on prednisone 10 mg po daily - will treat with stress doses of hydrocortisone x 2 days, then decrease back to 10 mg prednisone daily - will decrease to 10 mg orally daily on 08/31/2023 Status: Acute (2) Leukocytosis: Problem details: - was 28,000 on presentation and is down to 19,000 on 08/31/2023 Status: Acute (3) Acute respiratory acidosis: Problem details: - VBG : pH 7.23, pCO2 82, pO2 50, HCO3- 34 - metabolic encephalopathy, improved with BiPap - Daily VBG - appears to be acute on chronic. Need to assess for possible home BiPAP use. Will work with respiratory therapy to set up overnight oximetry, CPAP, BiPAP, with arterial blood gas measurements. Will attempt BiPAP overnight with overnight oximetry and arterial blood gas. Status: Acute (4) Acute on chronic respiratory failure with hypoxia and hypercapnia: Problem details: - VBG : pH 7.23, pCO2 82, pO2 50, HCO3- 34 - metabolic encephalopathy, improved with BIPap - Daily VBG Status: Acute (5) Chronic steroid use: Problem details: - for RA, usual dose of prednisone 10 po daily Status: Acute (6) Chronic, continuous use of opioids: Problem details: - continue to assess and treat as needed Status: Acute (7) Decubitus ulcers: Problem details: - s/p debridement 08/28/23 - daily dressing changes - Wound Vac Status: Acute (8) Aure-rectal abscess: Problem details: -Perianal abscess with concern for necrotizing soft tissue infection. Low-grade fever, leukocytosis, lactate 1.1. Continue to trend. 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 Gallegos -wound cultures pending -Infectious Disease consulted recommending ceftriaxone IV 2 g Q 24 hours, Flagyl 500 mg p.o. q.8 hours, daptomycin (empiric coverage for enterococcus) 500 mg IV Q 24 hours. If found to be soft tissue infection, continue antibiotics for 2 weeks from most recent I&D. If osteomyelitis etiology, Infectious Disease service requests follow-up for further recommendations -08/30/2023: given current microbiology findings, will stop the daptomycin. Continue with ceftriaxone and metronidazole IV. - 08/31/2023: Restarted daptomycin given the Enterococcus found in the wound cultures and urine culture. -wound care recommendations per General Surgery -pain management to include scheduled Tylenol, p.r.n. Vistaril, ketorolac (1 time dose prn). Continue home gabapentin and prn oxycodone -MINIMIZE NARCOTICS WITH HISTORY OF PARALYZED VOCAL CORD, DIFFICULT INTUBATION/EXTUBATION -encourage postoperative pulmonary hygiene, aerobika, pulse oximetry with narcotics - 08/30/2023: Single dose of ketorolac 30 mg IV for pain management. Status: Acute Plan Remains with elevated white blood cell count though medically she is stable. Wound changed yesterday. The wound tracks very deeply and so the wound base is not visible. I suspect if she had ongoing necrotizing soft tissue infection however she would be getting systemically more ill. She is too high risk for intubation to return to the OR. There is a question of whether not she is getting b.i.d. dressing changes. Planning to readdress this again with nursing staff. -recommend b.i.d. dressing changes with 5 minute fashioned well. -continue antibiotics for Enterococcus. Likely okay to narrow now that cultures have returned. -will need wound VAC change tomorrow. -will likely need subacute rehab prior to discharge.
[2023-09-01] MEDS: METOPROLOL TARTRATE 25 MG TABLET 12.5 MG PO ×2 (10:28→20:53)
[2023-09-01] MEDS: OMEPRAZOLE 20 MG CAPSULE DR PO ×2 (10:28→20:53)
[2023-09-01] MEDS: ACETAMINOPHEN 325 MG TABLET 650 MG PO ×3 (10:28→20:53)
[2023-09-01] MEDS: GABAPENTIN 300 MG CAPSULE PO ×3 (10:29→20:53)
[2023-09-01] MEDS: POTASSIUM CHLORIDE 10 MEQ CAPSULE ER 40 MEQ PO (10:30)
[2023-09-01] MEDS: LACTOBACILLUS ACIDOPHILUS 1 TABLET 2 TAB PO ×3 (10:30→17:53)
[2023-09-01] MEDS: metroNIDAZOLE 500 MG TABLET PO ×3 (10:30→20:53)
[2023-09-01] MEDS: FUROSEMIDE 10 MG/ML inj 40 MG IVP (10:31)
[2023-09-01] MEDS: SODIUM CHLORIDE 0.9 % (FLUSH) 10 ML SYRINGE 5 ML IVF ×2 (10:35→20:54)
--- NOTE | 2023-09-01 11:27 | NUTR.NU ---
Nutrition Follow-up: RDN followed up with patient regarding wound and increased protein needs. Current diet is Regular. Intakes vary from 25-75% with mainly 2 meals per day. Current weight 168 lb 3.2oz (bedscale); Height 5ft; BMI is obese at 32.8 kg/m2. Weight gain since admit of ~12 lbs. Weight difference could be due to difference in scales used to obtain weight. RDN order Ensure Enlive BID 08/29/2023, however nursing documentation is incomplete. RDN visited with patient whom reports eating well. She tries to choose protein at each meal and snack and drinks a oral nutrition supplement with protein in it at home. Patient is open to receiving Enlive, however she asked for it to be offered once daily instead of BID. RDN informed her of the importance of protein and wound healing, however patient asked for Enlive once per day. RDN will change Enlive to once daily which provides 350 kcals and 20 grams protein. RDN offered diet education related to wound healing however patient declined at this time. RDN informed patient she can ask for additional oral nutrition supplements at any time and to let staff know if she needs anything or would like diet education. RDN will continue to monitor.
[2023-09-01] MEDS: DAPTOmycin 50 MG/ML inj 500 MG IVP (14:00)
[2023-09-01] MEDS: cefTRIAXone 2 GM in 0.9 % SODIUM CHLORIDE Mini-bag 100 ML IVPB (14:00)
[2023-09-01] MEDS: predniSONE 5 MG TABLET 10 MG PO (14:09)
--- NOTE | 2023-09-01 14:41 | PM.IMPN1 ---
Progress Note: A&P Assessment and plan (1) Iatrogenic adrenal insufficiency: Problem details: - ordinarily on prednisone 10 mg po daily - will treat with stress doses of hydrocortisone x 2 days, then decrease back to 10 mg prednisone daily - will decrease to 10 mg orally daily on 09/01/2023 Status: Acute (2) Leukocytosis: Problem details: - was 28,000 on presentation and is down to 18,400 on 09/01/2023 Status: Acute (3) Acute respiratory acidosis: Problem details: - VBG : pH 7.23, pCO2 82, pO2 50, HCO3- 34 - metabolic encephalopathy, improved with BiPap - Daily VBG - appears to be acute on chronic. Need to assess for possible home BiPAP use. Will work with respiratory therapy to set up overnight oximetry, CPAP, BiPAP, with arterial blood gas measurements. Will attempt BiPAP overnight with overnight oximetry and arterial blood gas. Status: Acute (4) Acute on chronic respiratory failure with hypoxia and hypercapnia: Problem details: - VBG : pH 7.23, pCO2 82, pO2 50, HCO3- 34 - metabolic encephalopathy, improved with BIPap - Daily VBG Status: Acute (5) Chronic steroid use: Problem details: - for RA, usual dose of prednisone 10 po daily Status: Acute (6) Chronic, continuous use of opioids: Problem details: - continue to assess and treat as needed Status: Acute (7) Decubitus ulcers: Problem details: - s/p debridement 08/28/23 - twice daily dressing changes - Wound Vac Status: Acute (8) Aure-rectal abscess: Problem details: -Perianal abscess with concern for necrotizing soft tissue infection. Low-grade fever, leukocytosis, lactate 1.1. Continue to trend. 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 Gallegos -wound cultures pending -Infectious Disease consulted recommending ceftriaxone IV 2 g Q 24 hours, Flagyl 500 mg p.o. q.8 hours, daptomycin (empiric coverage for enterococcus) 500 mg IV Q 24 hours. If found to be soft tissue infection, continue antibiotics for 2 weeks from most recent I&D. If osteomyelitis etiology, Infectious Disease service requests follow-up for further recommendations -08/30/2023: given current microbiology findings, will stop the daptomycin. Continue with ceftriaxone and metronidazole IV. - 08/31/2023: Restarted daptomycin given the Enterococcus found in the wound cultures and urine culture. -wound care recommendations per General Surgery -pain management to include scheduled Tylenol, p.r.n. Vistaril, ketorolac (1 time dose prn). Continue home gabapentin and prn oxycodone -MINIMIZE NARCOTICS WITH HISTORY OF PARALYZED VOCAL CORD, DIFFICULT INTUBATION/EXTUBATION -encourage postoperative pulmonary hygiene, aerobika, pulse oximetry with narcotics - 08/30/2023: Single dose of ketorolac 30 mg IV for pain management. Status: Acute (9) Intravenous infiltration: Problem details: - left forearm. - Monitor for complications of antecubital IV infiltrations. Status: Acute Plan 1. Reviewed the above with the patient. 2. Continue with current plan of care. 3. Saline lock IV. 4. Single dose of IV furosemide today. Consider change to daily oral furosemide 40 mg once daily. 5. Local cares for left forearm infiltrate. 5. Work with patient, family, social media marketer to establish retirement care level of services if possible. Time Spent With Patient Total time spent: 40 minutes Subjective Date Seen: 09/01/23 Interval history: Hospital day 5, postoperative day 4, status post incision and drainage right perianal abscess with seton placement and bone biopsy chronic right ischial tuberosity wound. , preliminary wound culture results: Gram Stain* Final ML Result NO ORGANISM SEEN Aerobic Culture* Final ML Organism 1 Enterococcus faecalis Quantity of Growth Small amount MODERATE AMT. ALPHA HEMOLYTIC STREP NOT STREP PNEUMONIAE NO FURTHER WORKUP MODERATE AMT. GRAM POSITIVE SHONNA RESEMBLING DIPHTHEROIDS NO FURTHER WORKUP E faecalis DAWSON RX --------- --- Ampicillin <=2 S Daptomycin 4 S Linezolid 2 S Tigecycline <=0.12 S Vancomycin 1 S Anaerobic Culture* Preliminary ML MODRATE AMOUNT OF ANAEROBIC GRAM POSITIVE SHONNA SENT TO [facility] FOR FURTHER WORKUP On IV ceftriaxone, metronidazole, and daptomycin after discussion with Infectious Disease. Briefly stopped the daptomycin 08/30/23, given the report only specified alpha hemopytic strep not pneumo and diphtheroids. Restarted the daptomycin 08/31/23 with enterococcus reported. Await final results of wound cultures and of bone biopsies and cultures. Continue to await bone biopsy microbiology results - so far does not appear to be growing any bacterial pathogens. History of present illness: Prerna Major is a 77 year old female paraplegic since childhood, neurogenic bladder with chronic indwelling Cristobal catheter, rheumatoid arthritis on chronic steroid, acute on chronic anemia, lower extremity edema on Lasix, PUD, chronic pressure ulcers is admitted to the CCU from the OR after emergent surgery taken from the ED for further management. Patient was seen in the ED for rectal pain x1 week with inability to have a bowel movement. Was seen by the wound care nurse today (who manages her wound VAC) with concerns for perirectal wound that is leaking some fluid and blood. Has been constipated, 3-4 bowel movements per week. Reports chills without measured fever, increased shortness of breath. Has a history of vocal cord paralysis. Reports upper abdominal fullness, mild nausea, no vomiting. We are in the process of trying to establish whether not she meets criteria for home BiPAP. As such she was tried on CPAP overnight 08/30-08/31/23. I reviewed the overnight oximetry study which showed desaturations throughout the entire night despite being on the CPAP. PCO2 this morning on CPAP was elevated at 53. Subsequently attempted BiPap and the desaturations decreased significantly and patient awoke not feeling as tired and fatigued. Pain is well controlled today. Eating and drinking. Generally improving. She now realizes that she needs SNF level of care, that it would be too much for one daughter to care for a 4 year old child, her , and now herself. She is requesting that we try to help place her in a SNF for wound care and so forth. Concerned about left forearm edema. Exam Narrative: Exam Narrative: Weight today 76.3 kg. Weight 08/31 with 75.3 kg. Weight 08/30 was 74 kg. Weight 08/29 was 70.5 kg. Input and output today is 2000 in and 1000 now for the past 24 hours. I see the patient few times throughout the day. Initially she is sound asleep and later she is awake and interactive. Appears comfortable. Vision and hearing are grossly normal. Alert and oriented to self, place, time, situation. From the, articulate, cooperative. Lungs clear to auscultation. Heart tones with regular rhythm. Abdomen with active bowel sounds, soft, nontender. Upper extremities are both ecchymotic. Both have edema left more so than right. It appears almost as though she may have had an IV infiltrate in the left forearm. PICC line is in place and is functional. Chronic paraplegia Const: Vital Signs, click to edit/add: Vital Signs - 24 hr 08/31/23 15:05 08/31/23 15:48 08/31/23 17:22 Temperature 98.6 F Pulse Rate 86 Pulse Rate [Pulse Oximeter] 78 Respiratory Rate 18 Blood Pressure [Ri ght Arm] 167/95 H Pulse Oximetry 92 96 Oxygen Delivery Me thod BiPAP BiPAP Oxygen Flow Rate Fraction of Inspir ed Oxygen 08/31/23 20:00 08/31/23 20:00 08/31/23 20:00 Temperature 97.3 F L Pulse Rate 122 H Pulse Rate [Pulse Oximeter] 121 H 121 H Respiratory Rate 20 20 Blood Pressure [Ri ght Arm] 162/89 H Pulse Oximetry 83 L Oxygen Delivery Me thod Room Air Oxygen Flow Rate Fraction of Inspir ed Oxygen 08/31/23 20:00 08/31/23 23:00 09/01/23 03:00 Temperature 96.6 F L Pulse Rate Pulse Rate [Pulse Oximeter] 92 83 Respiratory Rate 20 17 11 L Blood Pressure [Ri ght Arm] 158/98 H Pulse Oximetry 83 L 86 L 92 Oxygen Delivery Me thod Room Air BiPAP BiPAP Oxygen Flow Rate Fraction of Inspir ed Oxygen 21 21 09/01/23 07:00 09/01/23 10:00 09/01/23 10:00 Temperature 98.3 F Pulse Rate 79 Pulse Rate [Pulse Oximeter] 101 H Respiratory Rate 20 20 Blood Pressure [Ri ght Arm] 178/109 H Pulse Oximetry 92 92 Oxygen Delivery Me thod Nasal Cannula Nasal Cannula Oxygen Flow Rate 3 2 Fraction of Inspir ed Oxygen Documenting provider has reviewed patient's vital signs: yes Labs Labs: Laboratory Results - last 24 hr 08/31/23 09/01/23 17:35 05:45 WBC 18.40 H RBC 4.63 Hgb 12.1 Hct 41.1 MCV 89 MCH 26 MCHC 29 L Plt Count 306 ABG pH 7.41 ABG pCO2 45 ABG pO2 70.0 L ABG HCO3 28 ABG Total CO2 26 ABG O2 Saturation 94 ABG Base Excess 2.9 VBG pH 7.330 VBG pCO2 56 H VBG pO2 41.1 VBG HCO3 30 H Carboxyhemoglobin < 1.0 Sodium 144 Potassium 3.4 L Chloride 110 Carbon Dioxide 30 Anion Gap 4 L BUN 22 Creatinine 0.4 L Estimated Creat Clear 34.38 Estimated GFR 103 Glucose 146 H Calcium 7.4 L Total Creatine Kinase < 20 L
--- NOTE | 2023-09-01 15:51 | PC.NURSE ---
Tele indicates sinus tachycardia. Please see eMar for multiple medications provided on day shift. Eval by Dr. Gallegos. Drsg changed to fistula site, medium bm and site bleeding with vasche soaked kerlix insertion by RN. Continue POC. Dtr Elvi updated via phone by primary RN @ . Report to Maeve VALENTINE for evening shift. Pt's cpap off at 0940 am. Pt is on 3L/NC. She needs assist with feeding, repositioning and takes her pills one at a time with water. Paraplegic.
[2023-09-01] MEDS: OXYCODONE 5 MG TABLET PO ×2 (15:55→21:30)
--- NOTE | 2023-09-01 17:31 | PC.SOCIAL ---
Discharge planning: Met with pt regarding d/c plan. Pt is in agreement with need for short term rehab placement at discharge and requested placement at [facility]. Called and faxed information to [facility] and awaiting call back with decision on admit. breaker table worker to follow up as needed.
[2023-09-01] MEDS: ENOXAPARIN 40 MG/0.4 ML INJ SUBCUT (20:53)
--- NOTE | 2023-09-01 22:49 | PC.NURSE ---
End of shift: Patient alert and oriented x4, pleasant and cooperative with cares. Dressing change completed to kwabena-rectal with 4x4 gauze, kerlex soaked with vashe and covered w/Mepilex. PRN oxy administered x2 for pain. Chronic indwelling delacruz patent and draining. 3 L NC during the day, Bipap on at night. VSS.
[2023-09-02] VITALS (9 sets, daily range): BP systolic 101–192; BP diastolic 57–114; PULSE 68–117; RESP 12–30; TEMP 35.8–37.1; O2SAT 84–94
[2023-09-02 06:43] LABS: HCO3 VBG 33 mmol/L (21-28); PCO2 VBG 58 mmHG (40-50)
[2023-09-02 06:51] LABS: Hematocrit 41.2 % (33.0-51.0); Mean Corpuscular HGB Conc 29 gm/dL (32-36); Mean Corpuscular Hemoglobin 26 pg (26-34); Mean Corpuscular Volume 89 fL (80-100); Platelet Count* 267 K/uL (140-440); Red Blood Count 4.61 m/uL (4.00-5.20); White Blood Count* 16.78 K/uL (4.50-11.00)
[2023-09-02 06:52] LABS: Slide Review Reflex No
--- NOTE | 2023-09-02 06:59 | PC.NURSE ---
END OF SHIFT NOTE: PT PLEASANT AND COOPERATIVE. A&Ox3. DENIES CP & N/V. PARAPLEGIC SINCE CHILDHOOD. REPOSITIONED FOR OFFLOADING AND COMFORT. VSS ON BIPAP; AFEBRILE. TELE READS NSR. HELLER PATENT AND DRAINING BRITTANEY COLORED URINE. PICC LINE TO RIGHT UPPER IS PATENT AND C/D/I. BIPAP ON DURING HS. CALL LIGHT WITHIN PT?S REACH.
[2023-09-02 07:11] LABS: Chloride* 111 mmol/L (96-114); Sodium* 145 mmol/L (135-149)
[2023-09-02 07:14] LABS: Anion Gap 3 mEq/L (7-15); Blood Urea Nitrogen* 20 mg/dL (7-30); Carbon Dioxide* 31 mmol/L (20-32); Creatinine* 0.3 mg/dL (0.5-1.5); Est. Creatinine Clearance* 34.38; Estimated Glomerular Filt Rate 110 ml/min
[2023-09-02 07:15] LABS: Calcium* 7.6 mg/dL (8.4-10.6); Glucose* 102 mg/dL (60-115)
[2023-09-02 07:17] LABS: C Reactive Protein* 2.1 mg/dL (0.5-1.0)
[2023-09-02 07:23] LABS: Creatine Kinase* < 20 U/L (41-117)
[2023-09-02] MEDS: ACETAMINOPHEN 325 MG TABLET 650 MG PO ×3 (09:10→21:50)
[2023-09-02] MEDS: metroNIDAZOLE 500 MG TABLET PO ×3 (09:10→21:51)
[2023-09-02] MEDS: predniSONE 5 MG TABLET 10 MG PO (09:11)
[2023-09-02] MEDS: LACTOBACILLUS ACIDOPHILUS 1 TABLET 2 TAB PO ×3 (09:11→21:50)
[2023-09-02] MEDS: GABAPENTIN 300 MG CAPSULE PO ×3 (09:11→21:51)
[2023-09-02] MEDS: OMEPRAZOLE 20 MG CAPSULE DR PO ×2 (09:11→21:51)
[2023-09-02] MEDS: SODIUM CHLORIDE 0.9 % (FLUSH) 10 ML SYRINGE 5 ML IVF ×2 (09:12→21:52)
[2023-09-02] MEDS: METOPROLOL TARTRATE 25 MG TABLET 12.5 MG PO ×2 (09:12→21:51)
[2023-09-02] MEDS: OXYCODONE 5 MG TABLET PO ×2 (09:21→15:45)
--- NOTE | 2023-09-02 13:12 | CRLHL7_ITS ---
For Patients: As a result of the Century Cures Act, medical imaging exams and procedure reports are released immediately into your electronic medical record. You may view this report before your referring provider. If you have questions, please contact your health care provider. INDICATION: Left arm pain and swelling. COMPARISON: None. TECHNIQUE: A compression venous ultrasound exam was performed of the left upper extremity using garrido-scale imaging, color Doppler, and spectral Doppler analysis. FINDINGS: Sonographic imaging of the left upper extremity demonstrates normal color Doppler venous blood flow within the internal jugular and subclavian veins. Compression of the internal jugular vein was not performed as patient was unable to lie flat. There is normal compressibility and color Doppler venous blood flow within the axillary, brachial, basilic, cephalic, radial, and ulnar veins. Subcutaneous edema. IMPRESSION: Negative for acute DVT in the left upper extremity. Dictated by Rosmery Kenney MD @ 09/02/2023 4:03:44 PM (Electronically Signed)
[2023-09-02] MEDS: cefTRIAXone 2 GM in 0.9 % SODIUM CHLORIDE Mini-bag 100 ML IVPB (13:47)
[2023-09-02] MEDS: DAPTOmycin 50 MG/ML inj 500 MG IVP (13:48)
--- NOTE | 2023-09-02 13:51 | SUR.OPER ---
Red vessel loop used as a rectal seton. SETON PLACED BY Rosmery ASHTON MD. - Verified charting by in file operator.
--- NOTE | 2023-09-02 14:05 | PC.SOCIAL ---
Discharge planning: Called [facility] and spoke with admissions. They are still reviewing patient and will call back with decision on admit. transfer worker to follow up as needed.
--- NOTE | 2023-09-02 14:48 | PC.NURSE ---
Addendum entered by Diana Keen RN 09/02/23 16:21: Tele indicates NSR. Oxygen sats 87-91% on room air. RN stayed to complete dressing change with evening RN Priscilla pt had another moderate loose stool during the procedure. Original Note: Patient has tolerated medications w/o dysphagia. She gets SOB when talking and when taking her pills one at a time. Total assistance needed for position changes d/t paraplegia. Soft-spoken d/to hx of paralyzed vocal cords. RN in process of dressing change when technical services librarian arrived for exam at bedside. Suze COOPER. Pt stated she will take her pain meds after drsg change completed. Report to oncoming shift.
--- NOTE | 2023-09-02 16:06 | PC.SOCIAL ---
Discharge planning: Received call from [facility] stating they can not accept pt for admission this week. If she is still needing placement on Friday, [facility] can be contacted to see if they have availability. Met with pt again to inform her [facility] is declining admission. Pt is requesting dtr be contacted for her ideas about placement. Called daughter, Jennifer, who requested placement at a facility in [place] pt has been to before. She is open to most facilities for placement but hopes to have one with good quality ratings. Dtr lives in [place], so a facility neat her would be preferable. Dtr states [facility] was not a good experience for pt's so would be one of their last choices. Emailed list of alf facilities with Department of Health ratings and information on locating ratings on senior care facilities was provided. workers compensation paralegal to followup as needed.
--- NOTE | 2023-09-02 16:22 | PC.SOCIAL ---
Discharge planning: made phone calls to several facilities this afternoon asking if they would have rehab openings for the pt. The facilities [facility] were [facility] were [facility] 2. [facility] in [facility] message 3. [facility] in [facility] 4. [facility] grain oilseed or pasture farm worker to follow-up as needed.
--- NOTE | 2023-09-02 16:58 | PM.IMPN1 ---
Progress Note: A&P Assessment and plan (1) Iatrogenic adrenal insufficiency: Problem details: - ordinarily on prednisone 10 mg po daily - will treat with stress doses of hydrocortisone x 2 days, then decrease back to 10 mg prednisone daily - will decrease to 10 mg orally daily on 09/01/2023 Status: Acute (2) Leukocytosis: Problem details: - was 28,000 on presentation and is down to 18,400 on 09/01/2023 Status: Acute (3) Acute respiratory acidosis: Problem details: - VBG : pH 7.23, pCO2 82, pO2 50, HCO3- 34 - metabolic encephalopathy, improved with BiPap - Daily VBG - appears to be acute on chronic. Need to assess for possible home BiPAP use. Will work with respiratory therapy to set up overnight oximetry, CPAP, BiPAP, with arterial blood gas measurements. Will attempt BiPAP overnight with overnight oximetry and arterial blood gas. Status: Acute (4) Acute on chronic respiratory failure with hypoxia and hypercapnia: Problem details: - VBG : pH 7.23, pCO2 82, pO2 50, HCO3- 34 - metabolic encephalopathy, improved with BIPap - Daily VBG Status: Acute (5) Chronic steroid use: Problem details: - for RA, usual dose of prednisone 10 po daily Status: Acute (6) Chronic, continuous use of opioids: Problem details: - continue to assess and treat as needed Status: Acute (7) Decubitus ulcers: Problem details: - s/p debridement 08/28/23 - twice daily dressing changes - Wound Vac Status: Acute (8) Aure-rectal abscess: Problem details: -Perianal abscess with concern for necrotizing soft tissue infection. Low-grade fever, leukocytosis, lactate 1.1. Continue to trend. 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 Gallegos -wound cultures pending -Infectious Disease consulted recommending ceftriaxone IV 2 g Q 24 hours, Flagyl 500 mg p.o. q.8 hours, daptomycin (empiric coverage for enterococcus) 500 mg IV Q 24 hours. If found to be soft tissue infection, continue antibiotics for 2 weeks from most recent I&D. If osteomyelitis etiology, Infectious Disease service requests follow-up for further recommendations -08/30/2023: given current microbiology findings, will stop the daptomycin. Continue with ceftriaxone and metronidazole IV. - 08/31/2023: Restarted daptomycin given the Enterococcus found in the wound cultures and urine culture. -wound care recommendations per General Surgery -pain management to include scheduled Tylenol, p.r.n. Vistaril, ketorolac (1 time dose prn). Continue home gabapentin and prn oxycodone -MINIMIZE NARCOTICS WITH HISTORY OF PARALYZED VOCAL CORD, DIFFICULT INTUBATION/EXTUBATION -encourage postoperative pulmonary hygiene, aerobika, pulse oximetry with narcotics - 08/30/2023: Single dose of ketorolac 30 mg IV for pain management. Status: Acute (9) Intravenous infiltration: Problem details: - left forearm. - Monitor for complications of antecubital IV infiltrations. - venous duplex ultrasound left upper extremity 09/02/2023, FINDINGS: Sonographic imaging of the left upper extremity demonstrates normal color Doppler venous blood flow within the internal jugular and subclavian veins. Compression of the internal jugular vein was not performed as patient was unable to lie flat. There is normal compressibility and color Doppler venous blood flow within the axillary, brachial, basilic, cephalic, radial, and ulnar veins. Subcutaneous edema. IMPRESSION: Negative for acute DVT in the left upper extremity. - Tubigrip compression and continue to work with occupational therapy Status: Acute Plan 1. Reviewed with patient. She is agreeable. 2. Continue with above stated plans and recommendations. 3. Await results of additional cultures. 4. Continue to work on discharge disposition plan and intermediate facility that will accept her. Time Spent With Patient Total time spent: 40 minutes Subjective Date Seen: 09/02/23 Interval history: Hospital day 6, postoperative day 5, status post incision and drainage right perianal abscess with seton placement and bone biopsy chronic right ischial tuberosity wound. 09/01/23, preliminary wound culture results: Gram Stain* Final ML Result NO ORGANISM SEEN Aerobic Culture* Final ML Organism 1 Enterococcus faecalis Quantity of Growth Small amount MODERATE AMT. ALPHA HEMOLYTIC STREP NOT STREP PNEUMONIAE NO FURTHER WORKUP MODERATE AMT. GRAM POSITIVE SHONNA RESEMBLING DIPHTHEROIDS NO FURTHER WORKUP E faecalis DAWSON RX --------- --- Ampicillin <=2 S Daptomycin 4 S Linezolid 2 S Tigecycline <=0.12 S Vancomycin 1 S Anaerobic Culture* Preliminary ML MODRATE AMOUNT OF ANAEROBIC GRAM POSITIVE SHONNA SENT TO [facility] FOR FURTHER WORKUP On IV ceftriaxone, metronidazole, and daptomycin after discussion with Infectious Disease. Briefly stopped the daptomycin 08/30/23, given the report only specified alpha hemopytic strep not pneumo and diphtheroids. Restarted the daptomycin 08/31/23 with enterococcus reported. Await final results of wound cultures and of bone biopsies and cultures. Continue to await bone biopsy microbiology results - so far does not appear to be growing any bacterial pathogens. History of present illness: Prerna Major is a 77 year old female paraplegic since childhood, neurogenic bladder with chronic indwelling Cristobal catheter, rheumatoid arthritis on chronic steroid, acute on chronic anemia, lower extremity edema on Lasix, PUD, chronic pressure ulcers is admitted to the CCU from the OR after emergent surgery taken from the ED for further management. Patient was seen in the ED for rectal pain x1 week with inability to have a bowel movement. Was seen by the wound care nurse today (who manages her wound VAC) with concerns for perirectal wound that is leaking some fluid and blood. Has been constipated, 3-4 bowel movements per week. Reports chills without measured fever, increased shortness of breath. Has a history of vocal cord paralysis. Reports upper abdominal fullness, mild nausea, no vomiting. Left arm continues to be uncomfortable for her. Otherwise doing well. Pain is well controlled today. Eating and drinking. Generally improving. She now realizes that she needs SNF level of care, that it would be too much for one daughter to care for a 4 year old child, her , and now herself. She is requesting that we try to help place her in a SNF for wound care and so forth. Exam Narrative: Exam Narrative: Examined patient in her room. At rest she appears comfortable. Alert, oriented to self, place, time, situation. From the, articulate, cooperative. Lungs clear to auscultation. Heart tones with regular rhythm. And with active bowel sounds, soft, nontender. Left hand, forearm, and arm, remains swollen. Today's weight 76.7 kg. Yesterday's weight 76.3 kg. Day prior weight was 75.3 kg. On admission was 70.5 kg. I/O yesterday were 600 in and 2600 out. Const: Vital Signs, click to edit/add: Vital Signs - 24 hr 09/01/23 19:00 09/02/23 00:20 09/02/23 00:20 Temperature 98.5 F Pulse Rate 70 Pulse Rate [Pulse Oximeter] 93 68 Respiratory Rate 20 18 Blood Pressure [Ri ght Arm] 122/62 Pulse Oximetry 97 Oxygen Delivery Me thod Room Air Oxygen Flow Rate Fraction of Inspir ed Oxygen 09/02/23 00:20 09/02/23 00:20 09/02/23 03:00 Temperature 96.8 F L 96.4 F L Pulse Rate Pulse Rate [Pulse Oximeter] 68 79 Respiratory Rate 12 12 13 Blood Pressure [Ri ght Arm] 115/57 L 130/67 Pulse Oximetry 94 94 92 Oxygen Delivery Me thod BiPAP Room Air Room Air Oxygen Flow Rate 3 Fraction of Inspir ed Oxygen 0.21 0.21 0.21 09/02/23 07:00 09/02/23 08:25 09/02/23 08:25 Temperature 98.7 F Pulse Rate 84 Pulse Rate [Pulse Oximeter] 99 Respiratory Rate 20 20 Blood Pressure [Ri ght Arm] 189/106 H Pulse Oximetry 91 91 Oxygen Delivery Me thod Room Air Room Air Oxygen Flow Rate Fraction of Inspir ed Oxygen 09/02/23 11:52 09/02/23 12:00 09/02/23 14:38 Temperature 98.4 F Pulse Rate Pulse Rate [Pulse Oximeter] 93 Respiratory Rate 20 Blood Pressure [Ri ght Arm] 162/88 H Pulse Oximetry 89 90 Oxygen Delivery Me thod Room Air Oxygen Flow Rate Fraction of Inspir ed Oxygen 21 Documenting provider has reviewed patient's vital signs: yes Labs Labs: Laboratory Results - last 24 hr 09/02/23 05:45 WBC 16.78 H RBC 4.61 Hgb 12.0 Hct 41.2 MCV 89 MCH 26 MCHC 29 L Plt Count 267 VBG pH 7.360 VBG pCO2 58 H VBG pO2 37.0 VBG HCO3 33 H Sodium 145 Potassium 4.0 Chloride 111 Carbon Dioxide 31 Anion Gap 3 L BUN 20 Creatinine 0.3 L Estimated Creat Clear 34.38 Estimated GFR 110 Glucose 102 Calcium 7.6 L Total Creatine Kinase < 20 L C-Reactive Protein 2.1 H Imaging Ultrasound left upper extremity: Radiologist's impression: FINDINGS: Sonographic imaging of the left upper extremity demonstrates normal color Doppler venous blood flow within the internal jugular and subclavian veins. Compression of the internal jugular vein was not performed as patient was unable to lie flat. There is normal compressibility and color Doppler venous blood flow within the axillary, brachial, basilic, cephalic, radial, and ulnar veins. Subcutaneous edema.
[2023-09-02] MEDS: LORazepam 2 MG/ML inj 0.5 MG IVP (17:08)
[2023-09-02] MEDS: LORazepam 2 MG/ML inj IVP (18:00)
--- NOTE | 2023-09-02 18:33 | CRLHL7_ITS ---
For Patients: As a result of the Century Cures Act, medical imaging exams and procedure reports are released immediately into your electronic medical record. You may view this report before your referring provider. If you have questions, please contact your health care provider. INDICATION: Respiratory distress. TECHNIQUE: CT chest PE was acquired with 95 cc Isovue 370 IV contrast. COMPARISON: None. FINDINGS: Heart and vasculature: Contrast opacification of the pulmonary arterial tree is adequate. No sign of pulmonary embolism. Cardiomegaly with coronary artery calcifications. Thoracic aorta and pulmonary artery are normal in caliber. Right PICC with tip in the proximal right atrium. Lungs and pleura: Moderate bilateral pleural effusions with compressive atelectasis. No pneumothorax.. Lymph nodes/mediastinum: No mediastinal, hilar, or axillary adenopathy. Chest wall: No masses. Upper abdomen: No acute or significant findings. Bones: Thoracolumbar hardware fixation. IMPRESSION: No pulmonary embolism. Moderate bilateral pleural effusions with compressive atelectasis. Superimposed pneumonia should be clinically excluded. Cardiomegaly with coronary artery calcifications. Please note that all CT scans at this facility use dose modulation, iterative reconstruction, and/or weight-based dosing when appropriate to reduce radiation dose to as low as reasonably achievable. Dictated by Saeid Deras MD @ 09/02/2023 9:07:59 PM (Electronically Signed)
--- NOTE | 2023-09-02 18:33 | CRLHL7_ITS ---
For Patients: As a result of the Century Cures Act, medical imaging exams and procedure reports are released immediately into your electronic medical record. You may view this report before your referring provider. If you have questions, please contact your health care provider. INDICATION: Respiratory distress TECHNIQUE: Chest 1 views. COMPARISON: Chest radiograph on 08/29/2023 FINDINGS: Right upper extremity PICC with tip likely located near the cavoatrial junction. The cardiomediastinal silhouette is grossly unchanged compared to prior exam. Low lung volumes bilaterally, worse compared prior examination, accentuating the pulmonary vasculature with likely mild pulmonary edema. No pneumothorax. The osseous structures are stable. Dictated by Cristino Contreras MD @ 09/02/2023 7:35:34 PM (Electronically Signed)
[2023-09-02] MEDS: FUROSEMIDE 10 MG/ML inj 80 MG IVP (19:06)
[2023-09-02 19:12] LABS: HCO3 VBG 31 mmol/L (21-28); Lactate* 0.8 mmol/L (0.5-1.9); PO2 VBG 45.9 mmHG (25-47); pH VBG 7.316 (7.32-7.43)
[2023-09-02 19:18] LABS: PCO2 VBG 61 mmHG (40-50)
[2023-09-02 19:32] LABS: Chloride* 108 mmol/L (96-114); Sodium* 143 mmol/L (135-149)
[2023-09-02 19:34] LABS: Creatinine* 0.3 mg/dL (0.5-1.5); Est. Creatinine Clearance* 34.38; Estimated Glomerular Filt Rate 110 ml/min
[2023-09-02 19:35] LABS: Anion Gap 5 mEq/L (7-15); Blood Urea Nitrogen* 18 mg/dL (7-30); Carbon Dioxide* 30 mmol/L (20-32); Glucose* 169 mg/dL (60-115)
[2023-09-02 20:14] LABS: Potassium* 4.3 mmol/L (3.6-5.1)
[2023-09-02 20:16] LABS: Troponin I* 0.02 ng/mL (0.01-0.04)
[2023-09-02 20:17] LABS: NT Pro B Type NatriureticPept* 8710 pg/mL
--- NOTE | 2023-09-02 20:55 | PM.EN ---
Chart Event Note Time Seen by Provider: 20:15 Date Seen: 09/02/23 Chart Event Note: -call to the bedside for increasing respiratory distress. Tachypnea with shallow respirations. Tachycardia. Some mild increased work of breathing. -O2 sats dropped into the low 80s and needed 1 L of oxygen keeper at 88. She was not wearing her BiPAP. -portable chest showed some edema. PH is dropped a little bit with CO2 retention and mild acidemia. BNP has doubled since admission. -CTA IMPRESSION: No pulmonary embolism. Moderate bilateral pleural effusions with compressive atelectasis. Superimposed pneumonia should be clinically excluded. Cardiomegaly with coronary artery calcifications. -I ordered 80 mg of IV Lasix and her BiPAP to be placed on at 8:00 p.m.. -she seemed more comfortable by 9:00 p.m. -lasix IV in the am/vbg/bipap all night. Note to the day team left.
[2023-09-02] MEDS: ENOXAPARIN 40 MG/0.4 ML INJ SUBCUT (21:50)
--- NOTE | 2023-09-02 23:23 | PC.NURSE ---
Nursing Care Hours: [id number] Pt this shift alert and oriented. C/o feeling like I can't remember how to breathe and feeling anxious over the last few days. Also c/o nose feeling stuffy. Worked on breathing techniques for relaxation. Service Aide dimmed the lights, put on a requested tv station, brought aromatherapy and last resort tried Ativan 0.25mg x2. Only Ativan helped a little. Pt BP elevated, tachypnea, and hypoxic on room air with labored breathing. Reported to hospitalist who then put in stat orders. Service Aide fulfilled orders and placed pt on BIPAP. On BIPAP, pt vitals returned to WNL, large amounts of u/o from Cristobal recorded. Repacked wet to dry dressing and changed wound vac dressing. BM x2. Aure cares done, noted bilat labia very enlarged and firm. Left arm swollen from infiltrated IV, tubi supervisor dimension warehouse in place, arm elevated on pillows. R forearm has large bruising.
[2023-09-03] VITALS (11 sets, daily range): BP systolic 130–188; BP diastolic 62–94; PULSE 78–109; RESP 14–92; TEMP 36.6–37.2; O2SAT 89–94
[2023-09-03 04:56] LABS: HCO3 VBG 38 mmol/L (21-28); PCO2 VBG 55 mmHG (40-50); PO2 VBG 35.2 mmHG (25-47); pH VBG 7.449 (7.32-7.43)
[2023-09-03 04:57] LABS: Hematocrit 39.7 % (33.0-51.0); Hemoglobin* 11.7 gm/dL (12.0-16.0); Mean Corpuscular HGB Conc 30 gm/dL (32-36); Mean Corpuscular Hemoglobin 26 pg (26-34); Mean Corpuscular Volume 87 fL (80-100); Platelet Count* 227 K/uL (140-440); Red Blood Count 4.56 m/uL (4.00-5.20); White Blood Count* 16.67 K/uL (4.50-11.00)
[2023-09-03 04:58] LABS: Slide Review Reflex No
[2023-09-03 05:15] LABS: Chloride* 103 mmol/L (96-114); Potassium* 3.2 mmol/L (3.6-5.1); Sodium* 142 mmol/L (135-149)
[2023-09-03 05:17] LABS: Creatinine* 0.3 mg/dL (0.5-1.5); Est. Creatinine Clearance* 34.38; Estimated Glomerular Filt Rate 110 ml/min
[2023-09-03 05:18] LABS: Blood Urea Nitrogen* 15 mg/dL (7-30); Carbon Dioxide* 36 mmol/L (20-32); Creatine Kinase* < 20 U/L (41-117); Glucose* 97 mg/dL (60-115)
[2023-09-03 05:19] LABS: Anion Gap 3 mEq/L (7-15); Calcium* 7.6 mg/dL (8.4-10.6)
[2023-09-03 05:21] LABS: C Reactive Protein* 3.2 mg/dL (0.5-1.0)
--- NOTE | 2023-09-03 06:55 | PC.NURSE ---
Shift note: Pt is on the BiPAP throughout the night, O2 sats 90-94%. Turned and repo Q2H, sacral dressing with packing changed once during this shift after it's been soiled with BM. Pt tolerating repositioning with no c/o pain.
--- NOTE | 2023-09-03 08:22 | PC.NURSE ---
Wound vac was changed yesterday and not due to be change again until . Wound vac intact will be changing other dressing shortly.
[2023-09-03] MEDS: POTASSIUM CHLORIDE 10 MEQ CAPSULE ER 40 MEQ PO (08:45)
[2023-09-03] MEDS: FUROSEMIDE 10 MG/ML inj 80 MG IVP (08:46)
[2023-09-03] MEDS: ACETAMINOPHEN 325 MG TABLET 650 MG PO ×3 (08:49→20:31)
[2023-09-03] MEDS: METOPROLOL TARTRATE 25 MG TABLET 12.5 MG PO ×2 (08:49→20:30)
[2023-09-03] MEDS: metroNIDAZOLE 500 MG TABLET PO ×3 (08:50→20:30)
[2023-09-03] MEDS: predniSONE 5 MG TABLET 10 MG PO (08:50)
[2023-09-03] MEDS: OMEPRAZOLE 20 MG CAPSULE DR PO ×2 (08:50→20:30)
[2023-09-03] MEDS: GABAPENTIN 300 MG CAPSULE PO ×3 (08:50→20:30)
[2023-09-03] MEDS: SODIUM CHLORIDE 0.9 % (FLUSH) 10 ML SYRINGE 5 ML IVF ×3 (08:51→20:30)
[2023-09-03] MEDS: LACTOBACILLUS ACIDOPHILUS 1 TABLET 2 TAB PO ×3 (08:53→17:54)
--- NOTE | 2023-09-03 09:49 | PC.SOCIAL ---
Discharge planning: Called daughter, Elvi, who confirmed she received the emailed resource lists from director of social work yesterday. Dtr is aware it is too early to know pt's discharge needs and therefore, too early to look for placement at [facility] facilities. HOwever, daughter will look over the provided resources and get back to director of social work about preferred areas or facilities to explore for placement. Dtr states [facility] would still be the first choice and hopes they will have availability when needed. Called [facility] and let them know she is still interested. [facility] requested updated information be faxed when a discharge date and the needs are finalized. therapeutic program worker to follow up as needed.
[2023-09-03] MEDS: OXYCODONE 5 MG TABLET PO ×2 (10:18→15:29)
--- NOTE | 2023-09-03 10:47 | PC.NURSE ---
Pictures were added of the wound today during dressing change.
[2023-09-03] MEDS: cefTRIAXone 2 GM in 0.9 % SODIUM CHLORIDE Mini-bag 100 ML IVPB (13:01)
--- NOTE | 2023-09-03 13:02 | PM.GSPN ---
Subjective Subjective Date Seen: 09/03/23 Interval history: He feels better today. She appear to have some pulmonary edema and received Lasix which helped. Nursing change the dressing yesterday and today. They also took photos. The dressing was bloody. There was no foul drainage. The question has been posed as to whether not a diverting stoma would be helpful to her for wound healing. Exam Narrative: Exam Narrative: General: No acute distress. Breathing nonlabored on nasal cannula Wound images from morning dressing change reviewed with nursing. Developing coccyx pressure sore. No periwound erythema. Const: Vital Signs, click to edit/add: Vital Signs - 24 hr 09/02/23 14:38 09/02/23 15:00 09/02/23 15:00 Temperature Pulse Rate Pulse Rate [Pulse Oximeter] 111 H Respiratory Rate 30 H 30 H Blood Pressure [Ri ght Arm] Blood Pressure [ri ght forearm] Pulse Oximetry 84 L Oxygen Delivery Me thod Room Air Oxygen Flow Rate Fraction of Inspir ed Oxygen 21 09/02/23 15:00 09/02/23 15:00 09/02/23 19:00 Temperature 98 F Pulse Rate 105 H Pulse Rate [Pulse Oximeter] 117 H 101 H Respiratory Rate 30 H 16 Blood Pressure [Ri ght Arm] Blood Pressure [ri ght forearm] 192/114 H 134/71 Pulse Oximetry 84 L 94 Oxygen Delivery Me thod Room Air BiPAP Oxygen Flow Rate Fraction of Inspir ed Oxygen 09/02/23 23:20 09/02/23 23:20 09/02/23 23:20 Temperature Pulse Rate 75 Pulse Rate [Pulse Oximeter] 75 Respiratory Rate 16 17 Blood Pressure [Ri ght Arm] Blood Pressure [ri ght forearm] Pulse Oximetry 93 Oxygen Delivery Me thod BiPAP Oxygen Flow Rate 3 Fraction of Inspir ed Oxygen 09/02/23 23:20 09/03/23 03:00 09/03/23 07:00 Temperature 98 F 98 F Pulse Rate Pulse Rate [Pulse Oximeter] 83 78 Respiratory Rate 12 14 Blood Pressure [Ri ght Arm] 101/64 Blood Pressure [ri ght forearm] Pulse Oximetry 93 93 94 Oxygen Delivery Me thod BiPAP BiPAP BiPAP Oxygen Flow Rate 3 3 Fraction of Inspir ed Oxygen 21 09/03/23 07:00 09/03/23 07:00 09/03/23 07:00 Temperature Pulse Rate 109 H Pulse Rate [Pulse Oximeter] 78 107 H Respiratory Rate 14 27 H Blood Pressure [Ri ght Arm] Blood Pressure [ri ght forearm] 188/94 H Pulse Oximetry 93 Oxygen Delivery Me thod Nasal Cannula Oxygen Flow Rate 2 Fraction of Inspir ed Oxygen 09/03/23 10:15 09/03/23 11:00 09/03/23 12:05 Temperature 98.3 F Pulse Rate Pulse Rate [Pulse Oximeter] 98 87 Respiratory Rate 92 H Blood Pressure [Ri ght Arm] Blood Pressure [ri ght forearm] 147/74 H 131/65 Pulse Oximetry 92 92 Oxygen Delivery Me thod Nasal Cannula Nasal Cannula Oxygen Flow Rate 2 2 Fraction of Inspir ed Oxygen 21 Labs/Imaging Labs Labs: CRP is mildly up at 3 from 2 White blood cell count is stable at 16. Culture from [facility] grew Clostridium perfringens, waiting on sensitivities Progress Note: A&P Assessment and plan (1) Leukocytosis: Problem details: - was 28,000 on presentation and is down to 18,400 on 09/01/2023 Status: Acute (2) Chronic steroid use: Problem details: - for RA, usual dose of prednisone 10 po daily Status: Acute (3) Decubitus ulcers: Problem details: - s/p debridement 08/28/23 - twice daily dressing changes - Wound Vac Status: Acute (4) Aure-rectal abscess: Problem details: -Perianal abscess with concern for necrotizing soft tissue infection. Low-grade fever, leukocytosis, lactate 1.1. Continue to trend. 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 Gallegos -wound cultures pending -Infectious Disease consulted recommending ceftriaxone IV 2 g Q 24 hours, Flagyl 500 mg p.o. q.8 hours, daptomycin (empiric coverage for enterococcus) 500 mg IV Q 24 hours. If found to be soft tissue infection, continue antibiotics for 2 weeks from most recent I&D. If osteomyelitis etiology, Infectious Disease service requests follow-up for further recommendations -08/30/2023: given current microbiology findings, will stop the daptomycin. Continue with ceftriaxone and metronidazole IV. - 08/31/2023: Restarted daptomycin given the Enterococcus found in the wound cultures and urine culture. -wound care recommendations per General Surgery -pain management to include scheduled Tylenol, p.r.n. Vistaril, ketorolac (1 time dose prn). Continue home gabapentin and prn oxycodone -MINIMIZE NARCOTICS WITH HISTORY OF PARALYZED VOCAL CORD, DIFFICULT INTUBATION/EXTUBATION -encourage postoperative pulmonary hygiene, aerobika, pulse oximetry with narcotics - 08/30/2023: Single dose of ketorolac 30 mg IV for pain management. Status: Acute Plan Mary is stable. -To perianal wound: Change dressing b.i.d. with Vashe. Leave red rubber seton in place. Once she is able to discharge, she can undergo daily dressing changes. -change wound VAC Friday to right ischial tuberosity wound. She will have to be changed into her home wound VAC when she is ready to be discharged as it is not compatible with our system -to her pressure wound on her coccyx, apply Mepilex. Check area daily. -have discussed with nursing frequent position changes to offload the area. -antibiotics per hospitalist, however once susceptibilities are back these can be narrowed. -the wound appears to be stable, however there is concern for this worsening or needing further debridement and she would likely need transfer given that her pulmonary status would preclude her being able to be extubated here. -please call general surgery over the holiday weekend if there are any wound concerns, will follow peripherally unless condition changes
--- NOTE | 2023-09-03 13:19 | PC.NURSE ---
End of Shift Note: Patient has had a fairly good day. At the start of the shift she appeared to be more short of breath than when I had seen her last. Placed on BIPAP for 1 hour she agreed to that. After that hour she received a IV dose of lasix see Intake and Output for urine measured throughout shift. She is doing better with her breathing now. Have her on 2L and she is 92-91%. Her blood pressure was up this morning but after morning medications it did come down to a better reading. She received 5 mg of oxycodone after her dressing. Enc her to take something before dressing change but only wanted tyl. Dressing change completed without difficulty. Have enc her to be repositioned as there is an area of concern on her coccyx area that bears watching. She is currently watch a show so will try again to have her repositioned.
[2023-09-03] MEDS: DAPTOmycin 50 MG/ML inj 500 MG IVP (13:48)
--- NOTE | 2023-09-03 14:57 | PM.IMPN1 ---
Progress Note: A&P Assessment and plan (1) Leukocytosis: Problem details: - was 28,000 on presentation and is gradually decreasing. Long history of leukocytosis. Status: Acute (2) Chronic steroid use: Problem details: - for RA, usual dose of prednisone 10 po daily Status: Acute (3) Decubitus ulcers: Problem details: - s/p debridement 08/28/23 - twice daily dressing changes to deeper wound - Wound Vac Status: Acute (4) Aure-rectal abscess: Problem details: -Perianal abscess with concern for necrotizing soft tissue infection. Low-grade fever, leukocytosis, lactate 1.1. Continue to trend. 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 Gallegos -wound cultures: Enterococcus in aerobic culture. Preliminary anaerobic culture growing Clostridium perfringens, with sensitivities still pending. Bone biopsies have no growth after 5 days. -Infectious Disease consulted recommending ceftriaxone IV 2 g Q 24 hours, Flagyl 500 mg p.o. q.8 hours, daptomycin (empiric coverage for enterococcus) 500 mg IV Q 24 hours. If found to be soft tissue infection, continue antibiotics for 2 weeks from most recent I&D. If osteomyelitis etiology, Infectious Disease service requests follow-up for further recommendations -08/30/2023: given current microbiology findings, will stop the daptomycin. Continue with ceftriaxone and metronidazole IV. - 08/31/2023: Restarted daptomycin given the Enterococcus found in the wound cultures and urine culture. -wound care recommendations per General Surgery -pain management to include scheduled Tylenol, p.r.n. Vistaril, ketorolac (1 time dose prn). Continue home gabapentin and prn oxycodone -MINIMIZE NARCOTICS WITH HISTORY OF PARALYZED VOCAL CORD, DIFFICULT INTUBATION/EXTUBATION -encourage postoperative pulmonary hygiene, aerobika, pulse oximetry with narcotics - 08/30/2023: Single dose of ketorolac 30 mg IV for pain management. 09/03/2023: Initiated discussion with our general surgeon, Dr. Maria D Gallegos, about the possibility of a diverting colostomy to help with wound healing. For the time being this is not necessarily warranted or indicated. Should this be considered in the future will need to discuss further. Status: Acute (5) Intravenous infiltration: Problem details: - left forearm. - Monitor for complications of antecubital IV infiltrations. - venous duplex ultrasound left upper extremity 09/02/2023, FINDINGS: Sonographic imaging of the left upper extremity demonstrates normal color Doppler venous blood flow within the internal jugular and subclavian veins. Compression of the internal jugular vein was not performed as patient was unable to lie flat. There is normal compressibility and color Doppler venous blood flow within the axillary, brachial, basilic, cephalic, radial, and ulnar veins. Subcutaneous edema. IMPRESSION: Negative for acute DVT in the left upper extremity. - Tubigrip compression and continue to work with occupational therapy - occupational therapy to assist with compression of left upper extremity. Status: Acute (6) Iatrogenic adrenal insufficiency: Problem details: - ordinarily on prednisone 10 mg po daily - will treat with stress doses of hydrocortisone x 2 days, then decrease back to 10 mg prednisone daily - will decrease to 10 mg orally daily on 09/01/2023 Status: Acute (7) Hypotension due to hypovolemia: Problem details: - possibly from 3rd spacing, acute adrenal insufficiency, opioids, doubt sepsis - NS IVF - stress doses of hydrocortisone x 2 days, then on Friday09/01/2023 resume prednisone 10 mg po daily Status: Acute (8) Acute on chronic respiratory failure with hypoxia and hypercapnia: Problem details: - VBG : pH 7.23, pCO2 82, pO2 50, HCO3- 34 - metabolic encephalopathy, improved with BIPap. Meets qualification criteria for ongoing BiPAP therapy hereafter. May need to fill out paperwork at time of discharge in order to document that she has in fact met eligibility criteria. - Daily VBG Status: Acute (9) Neurogenic bladder: Problem details: -chronic indwelling catheter. 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 Excellent urine output. Weight starting to decrease. Status: Acute (13) Cardiac volume overload: Problem details: - multifactorial including from for fluid resuscitation when she 1st presented, and temporarily stopping her diuretic. Status: Acute Plan 1. Reviewed impression with patient. 2. Discussed with Dr. Maria D Gallegos. 3. Await results of anaerobic wound cultures which preliminary are growing out Clostridium perfringens. 4. Continue to work toward establishing a safe discharge disposition plan. Time Spent With Patient Total time spent: 45 minutes Subjective Date Seen: 09/03/23 Interval history: Hospital day 7, postoperative day 6, status post incision and drainage right perianal abscess with seton placement and bone biopsy chronic right ischial tuberosity wound. 09/01/23, preliminary wound culture results: Gram Stain* Final ML Result NO ORGANISM SEEN Aerobic Culture* Final ML Organism 1 Enterococcus faecalis Quantity of Growth Small amount MODERATE AMT. ALPHA HEMOLYTIC STREP NOT STREP PNEUMONIAE NO FURTHER WORKUP MODERATE AMT. GRAM POSITIVE SHONNA RESEMBLING DIPHTHEROIDS NO FURTHER WORKUP E faecalis DAWSON RX --------- --- Ampicillin <=2 S Daptomycin 4 S Linezolid 2 S Tigecycline <=0.12 S Vancomycin 1 S Anaerobic Culture* Preliminary ML MODRATE AMOUNT OF ANAEROBIC GRAM POSITIVE SHONNA SENT TO [facility] FOR FURTHER WORKUP [facility] lab called [facility] 09/03/23 and was informed that the preliminary ID of the organism is clostridium perfringens and sensitivities are still pending. Given that the patient infection is stable on current antibiotic regimen s/p incision and drainage, will continue with current dressing changes and antibiotics for now pending additional data when organism sensitivities become available. Of note, patient does have an allergy to penicillin. Currently on IV ceftriaxone, metronidazole, and daptomycin after discussion with Infectious Disease. Briefly stopped the daptomycin 08/30/23, given the report only specified alpha hemolytic strep not pneumo and diphtheroids. Restarted the daptomycin 08/31/23 with enterococcus reported. Await final results of wound cultures and of bone biopsies and cultures. Final bone biopsy microbiology results - no growth. History of present illness: Prerna Major is a 77 year old female paraplegic since childhood, neurogenic bladder with chronic indwelling Cristobal catheter, rheumatoid arthritis on chronic steroid, acute on chronic anemia, lower extremity edema on Lasix, PUD, chronic pressure ulcers is admitted to the CCU from the OR after emergent surgery taken from the ED for further management. Patient was seen in the ED for rectal pain x1 week with inability to have a bowel movement. Was seen by the wound care nurse today (who manages her wound VAC) with concerns for perirectal wound that is leaking some fluid and blood. Has been constipated, 3-4 bowel movements per week. Reports chills without measured fever, increased shortness of breath. Has a history of vocal cord paralysis. Reports upper abdominal fullness, mild nausea, no vomiting. Left arm continues to be uncomfortable for her. Otherwise doing well. Pain is well controlled today. Eating and drinking. Generally improving. Having a fair amount of stooling. Is on probiotics. She now realizes that she needs SNF level of care, that it would be too much for one daughter to care for a 5 year old child, her , and now herself. She is requesting that we try to help place her in a SNF for wound care and so forth. Initiated diuresis and achieving good results. Requiring BiPap whenever she sleeps and tolerating. Exam Narrative: Exam Narrative: Examined patient in her hospital room, in her hospital bed. Appears comfortable. Alert and oriented to self, place, time, situation. Friendly, articulate, cooperative. Lungs are clear to auscultation. Decreased breath sounds in bases. Heart tones with regular rhythm, normal S1-S2. Abdomen with active bowel sounds, soft. Wounds are clean. Left upper extremity remains edematous. Ultrasound was negative yesterday for DVT. Hand, and distal medial aspect of arm, proximal to the elbow, more swollen. I/O yesterday roughly 400 in and 2300 out. Bed scale weight today 71.9 kg, yesterday 76.7 kg, on the was 76.3 kg. On the and it was 70.5 kg. Const: Vital Signs, click to edit/add: Vital Signs - 24 hr 09/02/23 15:00 09/02/23 15:00 09/02/23 15:00 Temperature 98 F Pulse Rate Pulse Rate [Pulse Oximeter] 111 H 117 H Respiratory Rate 30 H 30 H 30 H Blood Pressure [Ri ght Arm] Blood Pressure [ri ght forearm] 192/114 H Pulse Oximetry 84 L 84 L Oxygen Delivery Me thod Room Air Room Air Oxygen Flow Rate Fraction of Inspir ed Oxygen 09/02/23 15:00 09/02/23 19:00 09/02/23 23:20 Temperature Pulse Rate 105 H 75 Pulse Rate [Pulse Oximeter] 101 H Respiratory Rate 16 Blood Pressure [Ri ght Arm] Blood Pressure [ri ght forearm] 134/71 Pulse Oximetry 94 Oxygen Delivery Me thod BiPAP Oxygen Flow Rate Fraction of Inspir ed Oxygen 09/02/23 23:20 09/02/23 23:20 09/02/23 23:20 Temperature 98 F Pulse Rate Pulse Rate [Pulse Oximeter] 75 83 Respiratory Rate 16 17 12 Blood Pressure [Ri ght Arm] 101/64 Blood Pressure [ri ght forearm] Pulse Oximetry 93 93 Oxygen Delivery Me thod BiPAP BiPAP Oxygen Flow Rate 3 3 Fraction of Inspir ed Oxygen 21 21 09/03/23 03:00 09/03/23 07:00 09/03/23 07:00 Temperature 98 F Pulse Rate 109 H Pulse Rate [Pulse Oximeter] 78 Respiratory Rate 14 Blood Pressure [Ri ght Arm] Blood Pressure [ri ght forearm] Pulse Oximetry 93 94 Oxygen Delivery Me thod BiPAP BiPAP Oxygen Flow Rate 3 Fraction of Inspir ed Oxygen 21 09/03/23 07:00 09/03/23 07:00 09/03/23 10:15 Temperature Pulse Rate Pulse Rate [Pulse Oximeter] 78 107 H 98 Respiratory Rate 14 27 H Blood Pressure [Ri ght Arm] Blood Pressure [ri ght forearm] 188/94 H 147/74 H Pulse Oximetry 93 92 Oxygen Delivery Me thod Nasal Cannula Nasal Cannula Oxygen Flow Rate 2 2 Fraction of Inspir ed Oxygen 09/03/23 11:00 09/03/23 12:05 Temperature 98.3 F Pulse Rate Pulse Rate [Pulse Oximeter] 87 Respiratory Rate 92 H Blood Pressure [Ri ght Arm] Blood Pressure [ri ght forearm] 131/65 Pulse Oximetry 92 Oxygen Delivery Me thod Nasal Cannula Oxygen Flow Rate 2 Fraction of Inspir ed Oxygen 21 Documenting provider has reviewed patient's vital signs: yes Labs Labs: Laboratory Results - last 24 hr 09/02/23 09/03/23 19:05 04:50 WBC 16.67 H RBC 4.56 Hgb 11.7 L Hct 39.7 MCV 87 MCH 26 MCHC 30 L Plt Count 227 VBG pH 7.316 L 7.449 H VBG pCO2 61 H* 55 H VBG pO2 45.9 35.2 VBG HCO3 31 H 38 H Sodium 143 142 Potassium 4.3 3.2 L Chloride 108 103 Carbon Dioxide 30 36 H Anion Gap 5 L 3 L BUN 18 15 Creatinine 0.3 L 0.3 L Estimated Creat Clear 34.38 34.38 Estimated GFR 110 110 Glucose 169 H 97 Lactate 0.8 Calcium 8.0 L 7.6 L Total Creatine Kinase < 20 L Troponin I 0.02 C-Reactive Protein 3.2 H NT-Pro-B Natriuret Pep [address] of chest, angiogram: Attestation: I have reviewed the pertinent imaging results. Radiologist's impression: 09/02/2023, IMPRESSION: No pulmonary embolism. Moderate bilateral pleural effusions with compressive atelectasis. Superimposed pneumonia should be clinically excluded. Cardiomegaly with coronary artery calcifications.
--- NOTE | 2023-09-03 15:15 | NUTR.NU ---
RDN attempted to follow-up with patient x3, however patient was not available on all attempts. RDN will attempt to visit with patient at later date.
--- NOTE | 2023-09-03 17:07 | REH.OT ---
OT: requested OT assist with edema management of LUE. Patient with pitting edema dorsal side L hand and at L elbow with pooling of fluid on medial side. Patient does reports tenderness at reddened area medial side of L elbow where IV had infiltrated previously. OT provided ed with patient and nursing with positioning, elevation, gentle ROM, light compression trialed to aid in edema management. Will assist nursing in monitoring and providing interventions as needed.
[2023-09-03] MEDS: ENOXAPARIN 40 MG/0.4 ML INJ SUBCUT (20:30)
--- NOTE | 2023-09-03 23:40 | PC.NURSE ---
End of Shift: Patient pleasant and cooperative. Afebrile. C/o pain from wounds up to 7/10 and PRN oxycodone given x1. Frequent turn and reposition. Wound vac dressing C/D/I. Packed wound changed as ordered. Cristobal patent. Tolerating regular diet with no nausea. BiPAP on at 2100 and tolerating well.
[2023-09-04] VITALS (7 sets, daily range): BP systolic 136–154; BP diastolic 58–80; PULSE 74–108; RESP 14–26; TEMP 36.1–37.1; O2SAT 87–93
--- NOTE | 2023-09-04 05:19 | PC.NURSE ---
Pt rested well with Bipap all night. Turn and repo only. Pt Tolerated Bipap well and was very cooperative. Sats 88-92. Left arm still red and tender as previously mentioned. Take BP on right FA. Wound Vac functioning properly and looks CDI. Other wounds covered CDI. Afebrile. Tele NSR. Cristobal patent and draining.
[2023-09-04 06:32] LABS: Hematocrit 36.5 % (33.0-51.0); Mean Corpuscular HGB Conc 30 gm/dL (32-36); Mean Corpuscular Hemoglobin 26 pg (26-34); Mean Corpuscular Volume 87 fL (80-100); Platelet Count* 224 K/uL (140-440); Red Blood Count 4.19 m/uL (4.00-5.20); White Blood Count* 14.41 K/uL (4.50-11.00)
[2023-09-04 06:36] LABS: Slide Review Reflex No
[2023-09-04 06:41] LABS: HCO3 VBG 41 mmol/L (21-28); PCO2 VBG 56 mmHG (40-50); PO2 VBG 51.9 mmHG (25-47); pH VBG 7.478 (7.32-7.43)
[2023-09-04 06:55] LABS: Chloride* 100 mmol/L (96-114); Sodium* 142 mmol/L (135-149)
[2023-09-04 06:56] LABS: Potassium* 3.3 mmol/L (3.6-5.1)
[2023-09-04 06:58] LABS: Creatinine* 0.3 mg/dL (0.5-1.5); Est. Creatinine Clearance* 34.38; Estimated Glomerular Filt Rate 110 ml/min
[2023-09-04 06:59] LABS: Blood Urea Nitrogen* 15 mg/dL (7-30); Calcium* 7.3 mg/dL (8.4-10.6); Glucose* 122 mg/dL (60-115)
[2023-09-04 07:02] LABS: C Reactive Protein* 3.2 mg/dL (0.5-1.0)
[2023-09-04 07:06] LABS: Anion Gap 4 mEq/L (7-15); Carbon Dioxide* 38 mmol/L (20-32)
[2023-09-04 07:14] LABS: Creatine Kinase* < 20 U/L (41-117)
[2023-09-04] MEDS: metroNIDAZOLE 500 MG TABLET PO ×3 (09:17→21:08)
[2023-09-04] MEDS: OMEPRAZOLE 20 MG CAPSULE DR PO ×2 (09:18→21:08)
[2023-09-04] MEDS: LACTOBACILLUS ACIDOPHILUS 1 TABLET 2 TAB PO ×3 (09:18→17:27)
[2023-09-04] MEDS: ACETAMINOPHEN 325 MG TABLET 650 MG PO ×3 (09:18→21:08)
[2023-09-04] MEDS: METOPROLOL TARTRATE 25 MG TABLET 12.5 MG PO ×2 (09:18→21:07)
[2023-09-04] MEDS: SODIUM CHLORIDE 0.9 % (FLUSH) 10 ML SYRINGE 5 ML IVF (09:19)
[2023-09-04] MEDS: predniSONE 5 MG TABLET 10 MG PO (09:19)
[2023-09-04] MEDS: GABAPENTIN 300 MG CAPSULE PO ×3 (09:19→21:07)
[2023-09-04] MEDS: FUROSEMIDE 10 MG/ML inj 40 MG IVP (09:19)
--- NOTE | 2023-09-04 12:06 | P.IMPN_ITS ---
Progress Note: A&P Assessment and plan (1) Leukocytosis: Problem details: - was 28,000 on presentation and is gradually decreasing. Long history of leukocytosis. Status: Acute (2) Chronic steroid use: Problem details: - for RA, usual dose of prednisone 10 po daily Status: Acute (3) Decubitus ulcers: Problem details: - s/p debridement 08/28/23 - twice daily dressing changes to deeper wound - Wound Vac Status: Acute (4) Aure-rectal abscess: Problem details: -Perianal abscess with concern for necrotizing soft tissue infection. Low-grade fever, leukocytosis, lactate 1.1. Continue to trend. 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 Gallegos -wound cultures: Enterococcus in aerobic culture. Preliminary anaerobic culture growing Clostridium perfringens, with sensitivities still pending. Bone biopsies have no growth after 5 days. -Infectious Disease consulted recommending ceftriaxone IV 2 g Q 24 hours, Flagyl 500 mg p.o. q.8 hours, daptomycin (empiric coverage for enterococcus) 500 mg IV Q 24 hours. If found to be soft tissue infection, continue antibiotics for 2 weeks from most recent I&D. If osteomyelitis etiology, Infectious Disease service requests follow-up for further recommendations -08/30/2023: given current microbiology findings, will stop the daptomycin. Continue with ceftriaxone and metronidazole IV. - 08/31/2023: Restarted daptomycin given the Enterococcus found in the wound cultures and urine culture. -wound care recommendations per General Surgery -pain management to include scheduled Tylenol, p.r.n. Vistaril, ketorolac (1 time dose prn). Continue home gabapentin and prn oxycodone -MINIMIZE NARCOTICS WITH HISTORY OF PARALYZED VOCAL CORD, DIFFICULT INTUBATIO N/EXTUBATION -encourage postoperative pulmonary hygiene, aerobika, pulse oximetry with narcotics - 08/30/2023: Single dose of ketorolac 30 mg IV for pain management. 09/03/2023: Initiated discussion with our general surgeon, Dr. Maria D Gallegos, about the possibility of a diverting colostomy to help with wound healing. For the time being this is not necessarily warranted or indicated. Should this be considered in the future will need to discuss further. Status: Acute (5) Intravenous infiltration: Problem details: - left forearm. - Monitor for complications of antecubital IV infiltrations. - venous duplex ultrasound left upper extremity 09/02/2023, FINDINGS: Sonographic imaging of the left upper extremity demonstrates normal color Doppler venous blood flow within the internal jugular and subclavian veins. Compression of the internal jugular vein was not performed as patient was unable to lie flat. There is normal compressibility and color Doppler venous blood flow within the axillary, brachial, basilic, cephalic, radial, and ulnar veins. Subcutaneous edema. IMPRESSION: Negative for acute DVT in the left upper extremity. - Tubigrip compression and continue to work with occupational therapy - occupational therapy to assist with compression of left upper extremity. Status: Acute (6) Iatrogenic adrenal insufficiency: Problem details: - ordinarily on prednisone 10 mg po daily - will treat with stress doses of hydrocortisone x 2 days, then decrease back to 10 mg prednisone daily - will decrease to 10 mg orally daily on 09/01/2023 Status: Acute (7) Hypotension due to hypovolemia: Problem details: - possibly from 3rd spacing, acute adrenal insufficiency, opioids, doubt sepsis - NS IVF - stress doses of hydrocortisone x 2 days, then on Friday09/01/2023 resume prednisone 10 mg po daily Status: Acute (8) Acute on chronic respiratory failure with hypoxia and hypercapnia: Problem details: - VBG : pH 7.23, pCO2 82, pO2 50, HCO3- 34 - metabolic encephalopathy, improved with BIPap. Meets qualification criteria for ongoing BiPAP therapy hereafter. May need to fill out paperwork at time of discharge in order to document that she has in fact met eligibility criteria. - Daily VBG initially. Postop daily blood gases on 09/04/2023. - suspect multifactorial etiology including vocal cord paralysis, possible diaphragmatic paralysis, severe obstructive sleep apnea, sepsis presentation, and possibly a small component of cardiac volume overloaded state. Status: Acute (9) Neurogenic bladder: Problem details: -chronic indwelling catheter. 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 Excellent urine output. Weight starting to decrease. On 09/04/2023, furosemide dosing is 40 mg IV once daily. On 09/02/2023 and 09/03/2023 patient received furosemide 80 mg IV. At home patient is ordinarily on furosemide 20 mg orally once daily. - transthoracic echocardiogram 01/14/2023: Normal LV chamber size, hyperdynamic LV systolic function, EF greater than 75%. Mild mitral valve stenosis. Normal RV chamber size and function. Status: Acute (13) Cardiac volume overload: Problem details: - multifactorial including from for fluid resuscitation when she 1st presented, and temporarily stopping her diuretic. Status: Acute Plan 1. Continue current antibiotic regimen for now for sepsis and wound infections. 2. Await results of anaerobic culture that is currently preliminarily growing out Clostridium perfringens. We are awaiting the results of the sensitivities. 3. Will need to discuss with Infectious Disease once we obtain additional information in regard to the sensitivities of the Clostridium perfringens. Noteworthy is that she has had a rash from piperacillin and highs from vancomycin in the past. 4. Continue with all efforts to prevent any additional pressure ulcers and continue with daily dressing changes and wound VAC care. General surgery supporting. Will need outpatient wound care follow-up in the [facility], which Dr. Gallegos is able to do but will need to be set up. 5. Continue with BiPAP as presently on. Will likely need to continue this beyond the hospitalization. 6. Continue with diuresis efforts. 7. Continue with PT and OT. 8. Continue with PICC cares due to poor IV access. Continue with left arm infiltrate cares. 9. Discharge disposition planning is still in process. Patient realizes she is no longer able to be at home at this time with her daughter taking care of her plus other family members. Patient is willing to go to a [facility] facility that will be able to meet all of her needs. Time Spent With Patient Total time spent: 45 minutes Subjective Date Seen: 09/04/23 Interval history: Hospital day 8, postoperative day 7 status post incision and drainage right perianal abscess with seton placement and bone biopsy chronic right ischial tuberosity wound. 09/01/23, preliminary wound culture results: Gram Stain* Final ML Result NO ORGANISM SEEN Aerobic Culture* Final ML Organism 1 Enterococcus faecalis Quantity of Growth Small amount MODERATE AMT. ALPHA HEMOLYTIC STREP NOT STREP PNEUMONIAE NO FURTHER WORKUP MODERATE AMT. GRAM POSITIVE SHONNA RESEMBLING DIPHTHEROIDS NO FURTHER WORKUP E faecalis DAWSON RX --------- --- Ampicillin <=2 S Daptomycin 4 S Linezolid 2 S Tigecycline <=0.12 S Vancomycin 1 S Anaerobic Culture* Preliminary ML MODRATE AMOUNT OF ANAEROBIC GRAM POSITIVE SHONNA SENT TO [facility] FOR FURTHER WORKUP [facility] lab called [facility] 09/03/23 and was informed that the preliminary ID of the organism is clostridium perfringens and sensitivities are still pending. Given that the patient infection is stable on current antibiotic regimen s/p incision and drainage, will continue with current dressing changes and antibiotics for now pending additional data when organism sensitivities become available. Of note, patient does have an allergy to penicillin. Currently on IV ceftriaxone, metronidazole, and daptomycin after discussion with Infectious Disease when first admitted on 08/28/23. Briefly stopped the daptomycin 08/30/23, given the report only specified alpha hemolytic strep not pneumo and diphtheroids. Restarted the daptomycin 08/31/23 when enterococcus reported. Await final results of wound cultures with anaerobic culture reportedly growing Clostridium perfringens, with organism sensitivities still pending. Final bone biopsy microbiology results - no growth after 5 days. Daily wound care dressing changes plus also wound VAC therapy. Has PICC line in place due to poor IV access. Likely has severe obstructive sleep apnea. Requiring and tolerating BiPAP therapy when she sleeps. Failed CPAP alone. Will need BiPAP orders when discharged from the hospital. Studies documenting need for BiPAP therapy have been completed during this hospitalization with support from respiratory therapy. History of present illness: Prerna Major is a 77 year old female paraplegic since childhood, neurogenic bladder with chronic indwelling Cristobal catheter, rheumatoid arthritis on chronic steroid, acute on chronic anemia, lower extremity edema on Lasix, PUD, chronic pressure ulcers is admitted to the CCU from the OR after emergent surgery taken from the ED for further management. Patient was seen in the ED for rectal pain x1 week with inability to have a bowel movement. Was seen by the wound care nurse today (who manages her wound VAC) with concerns for perirectal wound that is leaking some fluid and blood. Has been constipated, 3-4 bowel movements per week. Reports chills without measured fever, increased shortness of breath. Has a history of vocal cord paralysis. Reports upper abdominal fullness, mild nausea, no vomiting. Left arm IV infiltrate from early on during the course hospitalization is slowly improving. Not nearly as painful as it was initially. Otherwise doing well. Pain is well controlled today. Eating and drinking. Generally improving. Having a fair amount of stooling. Is on probiotics. Consider study for C diff if appropriate. She now realizes that she needs SNF level of care, that it would be too much for one daughter to care for a 5 year old child, her , and now herself. She is requesting that we try to help place her in a SNF for wound care and so forth. Initiated diuresis and achieving good results, with decreased peripheral edema. Weight is obtained on bed and do not appear to be reproducible from day-to-day. Input and output also not accurate. NT proBNP 8700 on 09/02/2023, 4200 on 08/29/2023, 1700 in January of 2023. Volume overloaded state and great measure due to 3rd spacing from her sepsis presentation and volume administered at that time, plus having held her diuretic for several days. Last transthoracic echocardiogram 01/14/2023: Normal LV chamber size, hyperdynamic LV systolic function, EF greater than 75%. Mild mitral valve stenosis. Normal RV chamber size and function. Exam Narrative: Exam Narrative: I examined patient in her hospital room. Appears comfortable and in no acute distress. Chronic paraplegia. Alert and oriented to self, place, time, situation. Friendly, articulate, cooperative. A lungs are clear to auscultation. Heart tones with regular rhythm, soft systolic murmur, unchanged. Abdomen with active bowel sounds, soft, nontender. Lower extremities with less edema. Upper extremities with less edema. Still has more edema on left than on the right upper extremity. Daily wound cares. Const: Vital Signs, click to edit/add: Vital Signs - 24 hr 09/03/23 15:00 09/03/23 15:00 09/03/23 15:00 Temperature 98.9 F Pulse Rate 102 H Pulse Rate [Pulse Oximeter] 98 Respiratory Rate 22 Blood Pressure [ri ght forearm] 130/68 Pulse Oximetry 91 91 Oxygen Delivery Me thod Nasal Cannula Nasal Cannula Oxygen Flow Rate 0.5 0.5 Fraction of Inspir ed Oxygen 09/03/23 15:00 09/03/23 19:00 09/03/23 21:30 Temperature 98.3 F Pulse Rate Pulse Rate [Pulse Oximeter] 98 96 84 Respiratory Rate 22 20 Blood Pressure [ri ght forearm] 143/83 H Pulse Oximetry 89 91 Oxygen Delivery Me thod Room Air BiPAP Oxygen Flow Rate Fraction of Inspir ed Oxygen 09/03/23 22:56 09/03/23 23:08 09/03/23 23:50 Temperature 97.8 F Pulse Rate 82 Pulse Rate [Pulse Oximeter] 79 79 Respiratory Rate 16 16 Blood Pressure [ri ght forearm] 145/62 H Pulse Oximetry 92 Oxygen Delivery Me thod BiPAP Oxygen Flow Rate Fraction of Inspir ed Oxygen 09/03/23 23:51 09/04/23 03:14 09/04/23 08:27 Temperature 97.8 F Pulse Rate 90 Pulse Rate [Pulse Oximeter] 74 Respiratory Rate 16 14 Blood Pressure [ri ght forearm] 136/66 Pulse Oximetry 92 89 Oxygen Delivery Me thod BiPAP BiPAP Oxygen Flow Rate Fraction of Inspir ed Oxygen 21 21 09/04/23 08:29 09/04/23 08:29 09/04/23 08:29 Temperature 97.0 F L Pulse Rate Pulse Rate [Pulse Oximeter] 74 Respiratory Rate 16 16 Blood Pressure [ri ght forearm] 138/64 Pulse Oximetry 93 93 93 Oxygen Delivery Me thod Room Air Room Air Oxygen Flow Rate Fraction of Inspir ed Oxygen Documenting provider has reviewed patient's vital signs: yes Labs Labs: Laboratory Results - last 24 hr 09/04/23 09/04/23 06:20 11:12 WBC 14.41 H RBC 4.19 Hgb 11.0 L Hct 36.5 MCV 87 MCH 26 MCHC 30 L Plt Count 224 VBG pH 7.478 H VBG pCO2 56 H VBG pO2 51.9 H VBG HCO3 41 H Sodium 142 Potassium 3.3 L Chloride 100 Carbon Dioxide 38 H Anion Gap 4 L BUN 15 Creatinine 0.3 L Estimated Creat Clear 34.38 Estimated GFR 110 Glucose 122 H Calcium 7.3 L Total Creatine Kinase < 20 L C-Reactive Protein 3.2 H Lab Acknowledgement Test Added
[2023-09-04 12:09] LABS: Magnesium* 1.7 mg/dL (1.5-2.6)
[2023-09-04] MEDS: OXYCODONE 5 MG TABLET PO ×2 (13:08→17:27)
[2023-09-04] MEDS: POTASSIUM CHLORIDE 10 MEQ CAPSULE ER 40 MEQ PO ×2 (13:16→17:27)
[2023-09-04] MEDS: cefTRIAXone 2 GM in 0.9 % SODIUM CHLORIDE Mini-bag 100 ML IVPB (13:16)
[2023-09-04] MEDS: DAPTOmycin 50 MG/ML inj 500 MG IVP (14:41)
[2023-09-04] MEDS: ENOXAPARIN 40 MG/0.4 ML INJ SUBCUT (21:07)
--- NOTE | 2023-09-04 22:55 | PC.NURSE ---
Nursing Care Hours: [id number] Pt this shift calm and cooperative, alert and oriented. Turn and Repo about every 2 hours or per pt discretion. Declined SCDs. Packing changed for afternoon per nurse report. VSS, Cristobal patent. L arm is decreased in swelling but swelling still apparent at elbow, redness to medial inner elbow, tender to touch. Vaseline applied and pt reports it feels good. L arm kept on two pillows. Oxycodone given for pain 05/22, effective. BIPAP applied at 2245. Redness present on L lateral abdomen, non tender.
[2023-09-05] VITALS (9 sets, daily range): BP systolic 105–159; BP diastolic 58–84; PULSE 77–107; RESP 15–24; TEMP 35.7–37.1; O2SAT 89–94
[2023-09-05] MEDS: ACETAMINOPHEN 325 MG TABLET 650 MG PO ×4 (03:37→21:21)
--- NOTE | 2023-09-05 05:19 | PC.NURSE ---
[id number]: Patient cooperative with cares. Tolerated BiPAP during noc. Afebrile. Cristobal, PICC, and wound vac all patent. Frequent T&R. Dressing change to rectal region, tolerated well. Appeared to rest well during noc.
[2023-09-05] MEDS: OXYCODONE 5 MG TABLET PO ×3 (06:48→19:49)
[2023-09-05] MEDS: METOPROLOL TARTRATE 25 MG TABLET 12.5 MG PO ×2 (09:03→21:21)
[2023-09-05] MEDS: OMEPRAZOLE 20 MG CAPSULE DR PO ×2 (09:05→21:21)
[2023-09-05] MEDS: metroNIDAZOLE 500 MG TABLET PO ×3 (09:05→21:21)
[2023-09-05] MEDS: LACTOBACILLUS ACIDOPHILUS 1 TABLET 2 TAB PO ×3 (09:06→17:50)
[2023-09-05] MEDS: POTASSIUM CHLORIDE 10 MEQ CAPSULE ER 20 MEQ PO ×4 (09:06→17:50)
[2023-09-05] MEDS: GABAPENTIN 300 MG CAPSULE PO ×3 (09:06→21:21)
[2023-09-05] MEDS: FUROSEMIDE 10 MG/ML inj 40 MG IVP (09:07)
[2023-09-05] MEDS: predniSONE 5 MG TABLET 10 MG PO (09:08)
[2023-09-05] MEDS: SODIUM CHLORIDE 0.9 % (FLUSH) 10 ML SYRINGE 5 ML IVF ×2 (09:11→21:22)
--- NOTE | 2023-09-05 10:12 | NUTR.NU ---
Nutriton Follow-up: RDN followed up with patient whom reports feeling better. She has been trying to include protein at each meals. She reports having 1/2 bottle of Ensure Enlive yesterday. She did not have any concerns or questions at this time. RDN encouraged high protein intake, and encouraged patient to consistently consume Ensure Enlive daily while admitted. Current diet is Regular. Intakes have ranged from 25-75% recently, often skipping 1 meal daily. Weight has stayed stable within the past week at around 169 lbs. Decubitus ulcers are stable s/p debridement 08/28/23, now with wound vac placed. Continue offering Ensure Enlive once daily to provide an additional 350 kcals and 20 grams protein to help meet needs for wound healing. No additional nutrition interventions at this time. Plan for patient to discharge to SNF for short-term rehab and wound cares.
--- NOTE | 2023-09-05 10:16 | P.IMPN_ITS ---
Progress Note: A&P Assessment and plan (1) Aure-rectal abscess: Problem details: -Perianal abscess with concern for necrotizing soft tissue infection. Low-grade fever, leukocytosis, lactate 1.1. Continue to trend. 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 q.8 hours, daptomycin (empiric coverage for enterococcus) 500 mg IV Q 24 hours. If found to be soft tissue infection, continue antibiotics for 2 weeks from most recent I&D. If osteomyelitis etiology, Infectious Disease service requests follow-up for further recommendations. 09/05: Based on cultures, this is a soft tissue infection, not a bone infection, continue current course of antibiotics for total of 14 days. Has a PICC in place -wound care recommendations per General Surgery (see Dr. Gallegos's note) -pain management to include scheduled Tylenol, p.r.n. Vistaril, ketorolac (1 time dose prn). Continue home gabapentin and prn oxycodone -MINIMIZE NARCOTICS WITH HISTORY OF PARALYZED VOCAL CORD, DIFFICULT INTUBATION/EXTUBATION -encourage postoperative pulmonary hygiene, aerobika, pulse oximetry with narcotics -08/30/2023: given current microbiology findings, will stop the daptomycin. Continue with ceftriaxone and metronidazole IV. -08/30/2023: Single dose of ketorolac 30 mg IV for pain management. -08/31/2023: Restarted daptomycin given the Enterococcus found in the wound cultures and urine culture. -09/03/2023: Initiated discussion with our general surgeon, Dr. Maria D Gallegos, about the possibility of a diverting colostomy to help with wound healing. For the time being this is not necessarily warranted or indicated. Should this be considered in the future will need to discuss further. 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 Long history of leukocytosis. Remains afebrile Status: Acute (6) Chronic steroid use: Problem details: -for RA, continue usual dose of prednisone 10 po daily Status: Acute (7) Iatrogenic adrenal insufficiency: Problem details: -ordinarily on prednisone 10 mg po daily -received stress dose of hydrocortisone x2 days (08/30-) Status: Acute (8) Acute on chronic respiratory failure with hypoxia and hypercapnia: Problem details: - VBG 08/29/2023: pH 7.23, pCO2 82, pO2 50, HCO3- 34 - metabolic encephalopathy, improved with BIPap. Meets qualification criteria for ongoing BiPAP therapy hereafter. May need to fill out paperwork at time of discharge in order to document that she has in fact met eligibility criteria. - Daily VBG initially. Postop daily blood gases on 09/04/2023 pH 7.47, pCO2 56, HC03 41 - suspect multifactorial etiology including vocal cord paralysis, possible diaphragmatic paralysis, severe obstructive sleep apnea, sepsis presentation, and possibly a small component of cardiac volume overloaded state. Status: Acute (9) Acute on chronic diastolic heart failure: Problem details: - restarted diuresis 09/02/2023. Excellent urine output. Weight starting to decrease. On 09/04/2023, furosemide dosing is 40 mg IV once daily. On 09/02/2023 and 09/03/2023 patient received furosemide 80 mg IV. At home patient is ordinarily on furosemide 20 mg orally once daily. - transthoracic echocardiogram 01/14/2023: Normal LV chamber size, hyperdynamic LV systolic function, EF greater than 75%. Mild mitral valve stenosis. Normal RV chamber size and function. - continue IV Lasix 40 mg q.a.m., transitioning to oral prior to discharge. Strict I&Os, daily weights. - hypokalemia, mild. Currently receiving KCL 20 mEq b.i.d., increased to 40 mEq b.i.d. x2 doses on 09/05, continue to follow Status: Acute (10) Cardiac volume overload: Problem details: - multifactorial including from for fluid resuscitation when she 1st presented, and temporarily stopping her diuretic. Status: Acute (11) Neurogenic bladder: Problem details: -chronic indwelling catheter Status: Chronic (12) Paraplegia: Problem details: -since age 6; muscle atrophy (chronic) bilaterally Status: Chronic (13) Hypotension due to hypovolemia: Problem details: - resolved following normal saline IVF and stress dose of hydrocortisone x2 days - possibly from 3rd spacing, acute adrenal insufficiency, opioids, doubt sepsis Status: Acute (14) Intravenous infiltration: Problem details: - resolved - left forearm - Monitor for complications of antecubital IV infiltrations. - venous duplex ultrasound left upper extremity 09/02/2023 negative for acute DVT - Tubigrip compression and continue to work with occupational therapy Status: Acute Plan Plan to continue IV antibiotics x at least 14 day course. director outpatient services assisting with discharge planning/placement, SNF. Will need ongoing wound care management. Time Spent With Patient Total time spent: Total time spent caring for the patient today was 60 minutes. This includes time spent for the visit reviewing the chart, time spent during the visit, time spent after the visit and documentation and planning in coordination of care. Subjective Date Seen: 09/05/23 Interval history: HPI: Patient continues to slowly improve. Reports a headache this morning which she says occurs every morning after BiPAP. Awaiting morning Lasix which she reports helps with chest tightness and shortness of breath each morning. Denies diz ziness. Tolerating orals without nausea vomiting. Remains afebrile. Reports pain is adequately managed currently and with wound dressing changes. Left arm swelling following infiltration resolved. HOSPITAL COURSE: Hospital day 9, postoperative day 8 status post incision and drainage right perianal abscess with seton placement and bone biopsy chronic right ischial tuberosity wound. Wound and bone biopsy cultures as of 09/05/2023: Comments: ISHEAL TUBEROSITY DEEP (Superficial also negative) Procedure Result Site Gram Stain* Final ML Result NO ORGANISM SEEN Aerobic Culture* Final ML NO GROWTH AFTER 5 DAYS Anaerobic Culture* Final ML NO ANAEROBES ISOLATED AT 48 HRS. Source: Buttock Procedure Result Site Gram Stain* Final ML Result NO ORGANISM SEEN Aerobic Culture* Final ML Organism 1 +Enterococcus faecalis Quantity of Growth Small amount MODERATE AMT. ALPHA HEMOLYTIC STREP NOT STREP PNEUMONIAE NO FURTHER WORKUP MODERATE AMT. GRAM POSITIVE SHONNA RESEMBLING DIPHTHEROIDS NO FURTHER WORKUP E faecalis DAWSON RX --------- --- Ampicillin <=2 S Daptomycin 4 S Linezolid 2 S Tigecycline <=0.12 S Vancomycin 1 S Anaerobic Culture* Final ML MODRATE AMOUNT OF ANAEROBIC GRAM POSITIVE SHONNA SENT TO [facility] FOR FURTHER WORKUP CLOSTRIDIUM PERFRINGENS ISOLATED- SEE SCANNED REPORT FOR SUSCEPTIBILITIES +Clostridium perfringens -susceptibility sensitivities to cefoxitin, imipenim, metronidazole, penicillin (resistant to clindamycin) Currently on IV ceftriaxone, metronidazole, and daptomycin after discussion with Infectious Disease when first admitted on 08/28/23. Briefly stopped the daptomycin 08/30/23, given the report only specified alpha hemolytic strep not pneumo and diphtheroids. Restarted the daptomycin 08/31/23 when enterococcus reported. Final results of buttock wound cultures as above. Final bone biopsy microbiology results - no growth after 5 days. Ongoing cares: Daily wound care dressing changes plus also wound VAC therapy. Has PICC line in place due to poor IV access. Likely has severe obstructive sleep apnea. Requiring and tolerating BiPAP therapy when she sleeps. Failed CPAP alone. Will need BiPAP orders when discharged from the hospital. Studies documenting need for BiPAP therapy have been completed during this hospitalization with support from respiratory therapy. Monitor stool output, consider C diff culture if necessary. She now realizes that she needs SNF level of care, that it would be too much for one daughter to care for a 5 year old child, her , and now herself. She is requesting that we try to help place her in a SNF for wound care and so forth. Initiated diuresis and achieving good results, with decreased peripheral edema. Weight is obtained on bed and do not appear to be reproducible from day-to-day. Input and output also not accurate. NT proBNP 8700 on 09/02/2023, 4200 on 08/29/2023, 1700 in January of 2023. Volume overloaded state and great measure due to 3rd spacing from her sepsis presentation and volume administered at that time, plus having held her diuretic for several days. Last transthoracic echocardiogram 01/14/2023: Normal LV chamber size, hyperdynamic LV systolic function, EF greater than 75%. Mild mitral valve stenosis. Normal RV chamber size and function. Exam Narrative: Exam Narrative: PHYSICAL EXAM General: Pleasant, conversant, NAD Cardiovascular: RRR, S1S2. Trace pitting edema Pulmonary: CTA bilaterally without rhonchi, rales, expiratory wheezes. No dyspnea on room air Neurological: Alert, answering questions appropriately, cranial nerves intact, no focal findings Extremities: No gross joint deformity or swelling. AROMI. Neurovascularly intact Skin: Warm, dry. Const: Vital Signs, click to edit/add: Vital Signs - 24 hr 09/04/23 12:22 09/04/23 15:00 09/04/23 15:00 Temperature 98.7 F Pulse Rate 96 Pulse Rate [Pulse Oximeter] 83 96 Respiratory Rate 20 24 Blood Pressure [ri ght forearm] 146/77 H Pulse Oximetry 90 Oxygen Delivery Me thod Room Air Fraction of Inspir ed Oxygen 09/04/23 15:00 09/04/23 15:00 09/04/23 17:15 Temperature 98.5 F Pulse Rate Pulse Rate [Pulse Oximeter] 96 Respiratory Rate 24 24 Blood Pressure [ri ght forearm] 154/80 H Pulse Oximetry 89 89 Oxygen Delivery Me thod Room Air Room Air Fraction of Inspir ed Oxygen 0.21 09/04/23 19:00 09/04/23 23:00 09/04/23 23:00 Temperature 98.5 F Pulse Rate 80 Pulse Rate [Pulse Oximeter] 108 H Respiratory Rate 26 H 20 Blood Pressure [ri ght forearm] 146/58 H Pulse Oximetry 87 L 92 Oxygen Delivery Me thod Room Air BiPAP Fraction of Inspir ed Oxygen 09/05/23 01:16 09/05/23 04:03 Temperature 97.3 F L 97.8 F Pulse Rate Pulse Rate [Pulse Oximeter] 77 88 Respiratory Rate 15 16 Blood Pressure [ri ght forearm] 127/59 L 145/80 H Pulse Oximetry 94 94 Oxygen Delivery Me thod BiPAP BiPAP Fraction of Inspir ed Oxygen Labs Labs: Laboratory Results - last 24 hr 09/04/23 09/04/23 06:20 11:12 Magnesium 1.7 Lab Acknowledgement Test Added
[2023-09-05] MEDS: cefTRIAXone 2 GM in 0.9 % SODIUM CHLORIDE Mini-bag 100 ML IVPB (13:49)
--- NOTE | 2023-09-05 14:22 | PC.NURSE ---
Addendum entered by Diana Keen RN 09/05/23 15:11: Tele indicates sinus tachycardia with activity to NSR at rest. PICC drsg changed. Family visiting with pt @ bedside. Original Note: Pt evaluation by Britt Bhat hospitalist. New order for nystatin powder to groin, under pannus and under breasts. Pt has a reddened area on the left side of her body noted this shift. Urine output greatly improved with Lasix challenge this morning. Swollen left arm has improved significantly, elevated on 2 pillows. Pt had a large soft incontinent BM, wound vac at 125mm suction right hip, sacral mepilex to skin tear above gluteal fold, drsg completed at fistula site per protocol. Please see medications provided to this patient on the day shift. Daughter Elvi updated at bedside. Plan PICC drsg change after IV ATB finishes infusion and Daptomycin IVP given this afternoon. Report will be giving to oncoming shift RN. Wound Vac is to be changed on FRIDAY/FRIDAY AND FRIDAY.
[2023-09-05] MEDS: DAPTOmycin 50 MG/ML inj 500 MG IVP (14:38)
[2023-09-05] MEDS: NYSTATIN POWDER 1 APPLIC TOPICAL ×2 (17:16→21:22)
--- NOTE | 2023-09-05 17:57 | PC.NURSE ---
Shift Summary 15-19: Patient pleasant and cooperative. T&R q2h, dressing changed over right lower bottom after BM. Groin cleansed and nystatin applied.
[2023-09-05] MEDS: ENOXAPARIN 40 MG/0.4 ML INJ SUBCUT (21:21)
[2023-09-05] MEDS: hydrOXYzine pamoate 25 MG CAPSULE PO (22:22)
--- NOTE | 2023-09-05 22:28 | P.IMPN_ITS ---
Progress Note: A&P Assessment and plan (1) Acute on chronic respiratory failure with hypoxia and hypercapnia: Problem details: - VBG 08/29/2023: pH 7.23, pCO2 82, pO2 50, HCO3- 34 - metabolic encephalopathy, improved with BIPap. Meets qualification criteria for ongoing BiPAP therapy hereafter. Will need to make arrangements for outpatient/home BiPAP at discharge - suspect multifactorial etiology including vocal cord paralysis, possible diaphragmatic paralysis, severe obstructive sleep apnea, sepsis presentation, and possibly a small component of cardiac volume overloaded state. Status: Acute (2) Neurogenic bladder: Problem details: -chronic indwelling catheter Status: Chronic (3) Decubitus ulcers: Problem details: - s/p debridement 08/28/23 - twice daily dressing changes to deeper wound - Wound Vac Status: Acute (4) Aure-rectal abscess: Problem details: -Perianal abscess with concern for necrotizing soft tissue infection. Low-grade fever, leukocytosis, lactate 1.1. Continue to trend. 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 q.8 hours, daptomycin (empiric coverage for enterococcus) 500 mg IV Q 24 hours. If found to be soft tissue infection, continue antibiotics for 2 weeks from most recent I&D. If osteomyelitis etiology, Infectious Disease service requests follow-up for further recommendations. 09/05: Based on cultures, this is a soft tissue infection, not a bone infection, continue current course of antibiotics for total of 14 days. Has a PICC in place -wound care recommendations per General Surgery (see Dr. Gallegos's note) -pain management to include scheduled Tylenol, p.r.n. Vistaril, ketorolac (1 time dose prn). Continue home gabapentin and prn oxycodone -MINIMIZE NARCOTICS WITH HISTORY OF PARALYZED VOCAL CORD, DIFFICULT INTUBATION/EXTUBATION -encourage postoperative pulmonary hygiene, aerobika, pulse oximetry with narcotics -08/30/2023: given current microbiology findings, will stop the daptomycin. Continue with ceftriaxone and metronidazole IV. -08/31/2023: Restarted daptomycin given the Enterococcus found in the wound cultures and urine culture. Prior history from a decade ago of probable urticar ia from penicillin -09/03/2023: Initiated discussion with our general surgeon, Dr. Maria D Gallegos, about the possibility of a diverting colostomy to help with wound healing. For the time being this is not necessarily warranted or indicated. Should this be considered in the future will need to discuss further. 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 Excellent urine output. Weight starting to decrease. On 09/04/2023, furosemide dosing is 40 mg IV once daily. On 09/02/2023 and 09/03/2023 patient received furosemide 80 mg IV. At home patient is ordinarily on furosemide 20 mg orally once daily. - transthoracic echocardiogram 01/14/2023: Normal LV chamber size, hyperdynamic LV systolic function, EF greater than 75%. Mild mitral valve stenosis. Normal RV chamber size and function. - continue IV Lasix 40 mg q.a.m., transitioning to oral prior to discharge. Strict I&Os, daily weights. - hypokalemia, mild. Currently receiving KCL 20 mEq b.i.d., increased to 40 mEq b.i.d. x2 doses on 09/05, continue to follow Status: Acute (13) Cardiac volume overload: Problem details: - multifactorial including from for fluid resuscitation when she 1st presented, and temporarily stopping her diuretic. Status: Acute (14) UTI (urinary tract infection): Problem details: -urine culture growing Enterococcus faecalis, sensitivities reviewed, continue current IV antibiotic course Status: Acute (15) Rash: Problem details: Area of erythema on left flank. Stable over the last 2 days. Continue to monitor. Considerations include drug eruption. Status: Acute Plan Continue in hospital for IV antibiotics, wound care, monitoring for complications. Ongoing discharge planning Time Spent With Patient Total time spent: Total time spent today is 60 minutes, 40 minutes in coordination of care and discussing with patient other providers ongoing evaluation management of perianal ulcer, soft tissue infection. Subjective Date Seen: 09/06/23 Interval history: Prerna Major is a 77 year old female paraplegic since childhood, neurogenic bladder with chronic indwelling Cristobal catheter, rheumatoid arthritis on chronic steroid, acute on chronic anemia, lower extremity edema on Lasix, PUD, chronic pressure ulcers is admitted to the CCU from the OR after emergent surgery taken from the ED for further management. Patient was seen in the ED for rectal pain x1 week with inability to have a bowel movement. Was seen by the wound care nurse today (who manages her wound VAC) with concerns for perirectal wound that is leaking some fluid and blood. Has been constipated, 3-4 bowel movements per week. Reports chills without measured fever, increased shortness of breath. Has a history of vocal cord paralysis. Reports upper abdominal fullness, mild nausea, no vomiting. She was taken to the operating room by Dr. Gallegos where she had debridement of a perianal abscess with seton placement. At that time she also had culture and biopsy of the bone done. Subsequent cultures have grown out Enterococcus faecalis from her wound and her urine and also Clostridium perfringens from her wound. She has a penicillin allergy and has been treated with daptomycin and oral metronidazole. Bone culture was negative so the plan of treatment was 2 weeks for her soft tissue infection. Initially started on ertapenem and now on daptomycin day 6. She has not had any further fevers. She has had hypoxic and hypercarbic respiratory failure. This is thought to be acute on chronic. She has long-time been suspected to have sleep apnea. Evaluation here shows ventilatory failure at night and she is now transition to BiPAP use when she is sleeping. This seems to be working fairly well for her. She is mildly hypoxic while she is awake during the day with O2 sats in the upper 80s. Exam Narrative: Exam Narrative: She is alert and appears in no distress. She is oriented to her circumstances. Respirations are clear to auscultation. Cardiovascular: S1, S2, regular rate and rhythm. Abdomen is soft without tenderness or mass. Back side is examined. She has some erythema and a few shallow ulcerations scattered all over the entire buttock/sacral area. She has a an ulcer adjacent to her anal canal packed with gauze. This is inspected and has a relatively clean granulating tissue at the base. She has a wound VAC over her buttock. That wound also appears to be relatively clean. Const: Vital Signs, click to edit/add: Vital Signs - 24 hr 09/04/23 23:00 09/04/23 23:00 09/05/23 01:16 Temperature 97.3 F L Pulse Rate 80 Pulse Rate [Pulse Oximeter] 77 Respiratory Rate 20 15 Blood Pressure [ri ght forearm] 127/59 L Pulse Oximetry 92 94 Oxygen Delivery Me thod BiPAP BiPAP Fraction of Inspir ed Oxygen 09/05/23 04:03 09/05/23 08:30 09/05/23 08:30 Temperature 97.8 F Pulse Rate 101 H Pulse Rate [Pulse Oximeter] 88 Respiratory Rate 16 20 Blood Pressure [ri ght forearm] 145/80 H Pulse Oximetry 94 90 Oxygen Delivery Me thod BiPAP Room Air Fraction of Inspir ed Oxygen 09/05/23 08:30 09/05/23 13:00 09/05/23 15:56 Temperature 98.7 F 98.8 F Pulse Rate Pulse Rate [Pulse Oximeter] 104 H 89 Respiratory Rate 20 20 20 Blood Pressure [ri ght forearm] 159/84 H 143/73 H Pulse Oximetry 90 90 89 Oxygen Delivery Me thod Room Air Room Air Room Air Fraction of Inspir ed Oxygen 09/05/23 16:03 09/05/23 16:09 09/05/23 17:30 Temperature 98.3 F Pulse Rate 97 Pulse Rate [Pulse Oximeter] 106 H Respiratory Rate 20 Blood Pressure [ri ght forearm] 109/58 L Pulse Oximetry 89 Oxygen Delivery Me thod Room Air Fraction of Inspir ed Oxygen 21 Documenting provider has reviewed patient's vital signs: yes
[2023-09-06] VITALS (9 sets, daily range): BP systolic 116–159; BP diastolic 53–91; PULSE 76–110; RESP 16–22; TEMP 35.9–37.1; O2SAT 86–91
[2023-09-06] MEDS: ACETAMINOPHEN 325 MG TABLET 650 MG PO ×4 (02:40→21:30)
[2023-09-06] MEDS: hydrOXYzine pamoate 25 MG CAPSULE PO (02:50)
[2023-09-06] MEDS: OXYCODONE 5 MG TABLET PO ×3 (02:50→21:30)
--- NOTE | 2023-09-06 06:13 | PC.NURSE ---
End of shift report [id number]: Patient is pleasant and cooperative with cares. Pain reported to sacrum and buttocks, well managed with PRN medication and repositioning. Left lower abdomen redness and edema noted, starts from hip bone up to axilla and and extends towards midline. Patient reports area is tender to the touch. Visual Designer updated Dr. Kline who visualized area, curriculum writer outlined margins and provider states he will reassess on Friday, no new orders at this time. Wound care completed to right buttock per orders. Wound vac to coccyx intact and draining scant amount of serosanguineous fluid. Patient repositioned Q2H and per request. Bipap applied at 2200, at 0200 patient placed call light on nd reporting that head strap was causing pain and requested mask be removed. Visual Designer educated on benefits of wearing mask and attempted to reposition straps, patient continued to decline. Cristobal catheter patent, draining dark yellow urine.
[2023-09-06 07:22] LABS: Hematocrit 40.3 % (33.0-51.0); Hemoglobin* 11.8 gm/dL (12.0-16.0); Mean Corpuscular HGB Conc 29 gm/dL (32-36); Mean Corpuscular Hemoglobin 26 pg (26-34); Mean Corpuscular Volume 90 fL (80-100); Platelet Count* 314 K/uL (140-440); White Blood Count* 16.32 K/uL (4.50-11.00)
[2023-09-06 07:25] LABS: Slide Review Reflex No
[2023-09-06 07:41] LABS: Chloride* 98 mmol/L (96-114); Potassium* 4.8 mmol/L (3.6-5.1); Sodium* 141 mmol/L (135-149)
[2023-09-06 07:44] LABS: Blood Urea Nitrogen* 11 mg/dL (7-30); Creatinine* 0.3 mg/dL (0.5-1.5); Est. Creatinine Clearance* 34.38; Estimated Glomerular Filt Rate 110 ml/min; Glucose* 97 mg/dL (60-115)
[2023-09-06 07:45] LABS: Calcium* 7.9 mg/dL (8.4-10.6)
[2023-09-06 07:51] LABS: Anion Gap 5 mEq/L (7-15); Carbon Dioxide* 38 mmol/L (20-32)
[2023-09-06] MEDS: FUROSEMIDE 40 MG TABLET PO (09:43)
[2023-09-06] MEDS: METOPROLOL TARTRATE 25 MG TABLET 12.5 MG PO ×2 (09:43→21:30)
[2023-09-06] MEDS: GABAPENTIN 300 MG CAPSULE PO ×3 (09:43→21:30)
[2023-09-06] MEDS: LACTOBACILLUS ACIDOPHILUS 1 TABLET 2 TAB PO ×3 (09:43→18:05)
[2023-09-06] MEDS: predniSONE 5 MG TABLET 10 MG PO (09:43)
[2023-09-06] MEDS: SODIUM CHLORIDE 0.9 % (FLUSH) 10 ML SYRINGE 5 ML IVF ×2 (09:44→21:31)
[2023-09-06] MEDS: metroNIDAZOLE 500 MG TABLET PO ×3 (09:44→21:30)
[2023-09-06] MEDS: OMEPRAZOLE 20 MG CAPSULE DR PO ×2 (09:44→21:30)
[2023-09-06] MEDS: NYSTATIN POWDER 1 APPLIC TOPICAL ×2 (09:45→21:31)
[2023-09-06] MEDS: POTASSIUM CHLORIDE 10 MEQ CAPSULE ER 20 MEQ PO ×2 (09:45→18:05)
--- NOTE | 2023-09-06 10:26 | RESP.RT ---
Patient was on BiPAP during night, complaint of Straps being too tight, removed at 06:30 by Nurse. At 07:30 SaO2 low 80's% returned to BiPAP by Nurse, then Off at 09:30 when patient was taken off by Nurse for Breakfast. BBS are diminished with fine crackles noted, patient shallow breathing. SaO2 decreased when sleeping, BiPAP then used to Maintain SaO2 >88%.
--- NOTE | 2023-09-06 14:40 | PC.NURSE ---
Shift Summary: Patient pleasant and cooperative. T&R q2h. pillows behind back, under bottom and under bilat legs. Patients own VINI socks on. Wound vac dressing changed along with x2 other dressings on right buttock, Dr Kline in room to assess wounds. PRN oxycodone x1 for pain, see MEHUL. Alina while patient slept this morning. Vitals stable, o2 sats 87-92% on RA, seen by RT. Tolerating regular diet well, denies nausea.
[2023-09-06] MEDS: DAPTOmycin 50 MG/ML inj 500 MG IVP (15:28)
[2023-09-06] MEDS: ENOXAPARIN 40 MG/0.4 ML INJ SUBCUT (21:30)
[2023-09-07] VITALS (10 sets, daily range): BP systolic 94–145; BP diastolic 46–65; PULSE 72–101; RESP 12–22; TEMP 36.1–36.9; O2SAT 82–93
[2023-09-07 06:42] LABS: Hematocrit 38.8 % (33.0-51.0); Hemoglobin* 11.6 gm/dL (12.0-16.0); Mean Corpuscular HGB Conc 30 gm/dL (32-36); Mean Corpuscular Hemoglobin 27 pg (26-34); Mean Corpuscular Volume 89 fL (80-100); Platelet Count* 329 K/uL (140-440); Red Blood Count 4.38 m/uL (4.00-5.20); White Blood Count* 16.57 K/uL (4.50-11.00)
[2023-09-07 06:43] LABS: Slide Review Reflex No
--- NOTE | 2023-09-07 06:45 | PC.NURSE ---
Shift note: Turned and repo throughout the night, pt tolerated with no increase of pain. Afebrile, outline to left torso appears to be increased beyond the line, warm to touch, edematodes.
[2023-09-07 06:50] LABS: Chloride* 96 mmol/L (96-114); Potassium* 4.4 mmol/L (3.6-5.1); Sodium* 139 mmol/L (135-149)
[2023-09-07 06:53] LABS: Blood Urea Nitrogen* 12 mg/dL (7-30); Calcium* 7.9 mg/dL (8.4-10.6); Creatinine* 0.4 mg/dL (0.5-1.5); Est. Creatinine Clearance* 34.38; Estimated Glomerular Filt Rate 103 ml/min; Glucose* 90 mg/dL (60-115)
[2023-09-07 07:00] LABS: Anion Gap 5 mEq/L (7-15); Carbon Dioxide* 38 mmol/L (20-32)
[2023-09-07] MEDS: predniSONE 5 MG TABLET 10 MG PO (08:26)
[2023-09-07] MEDS: METOPROLOL TARTRATE 25 MG TABLET 12.5 MG PO ×2 (08:27→21:28)
[2023-09-07] MEDS: FUROSEMIDE 40 MG TABLET PO (08:28)
[2023-09-07] MEDS: LACTOBACILLUS ACIDOPHILUS 1 TABLET 2 TAB PO ×3 (08:28→17:32)
[2023-09-07] MEDS: ACETAMINOPHEN 325 MG TABLET 650 MG PO ×3 (08:29→21:28)
[2023-09-07] MEDS: GABAPENTIN 300 MG CAPSULE PO ×3 (08:30→21:28)
[2023-09-07] MEDS: metroNIDAZOLE 500 MG TABLET PO ×3 (08:30→21:28)
[2023-09-07] MEDS: OMEPRAZOLE 20 MG CAPSULE DR PO ×2 (08:30→21:28)
[2023-09-07] MEDS: NYSTATIN POWDER 1 APPLIC TOPICAL ×2 (08:32→21:28)
[2023-09-07] MEDS: POTASSIUM CHLORIDE 10 MEQ CAPSULE ER 20 MEQ PO ×2 (08:32→17:32)
[2023-09-07] MEDS: OXYCODONE 5 MG TABLET PO ×3 (08:34→21:28)
--- NOTE | 2023-09-07 08:43 | RESP.RT ---
Patient wears BiPAP at night and for naps during the day. SaO2 on room air, (no BiPAP), observed 88-92%. Reported when sleeping on room air SaO2 will decrease to low 80's% or lower, when placed on BiPAP SaO2 climbs back to the 88-92%. This AM, patient has good clear voice, good color, and in good spirits. Paper work for Home BiPAP has been done.
[2023-09-07] MEDS: SODIUM CHLORIDE 0.9 % (FLUSH) 10 ML SYRINGE 5 ML IVF ×2 (12:26→21:29)
[2023-09-07] MEDS: DAPTOmycin 50 MG/ML inj 500 MG IVP (14:14)
--- NOTE | 2023-09-07 14:57 | PM.IMPN1 ---
Progress Note: A&P Assessment and plan (1) Acute on chronic respiratory failure with hypoxia and hypercapnia: Problem details: - VBG 08/29/2023: pH 7.23, pCO2 82, pO2 50, HCO3- 34. Bicarb on her chemistries remains elevated consistent with chronic CO2 retention. - metabolic encephalopathy, improved with BIPap. Meets qualification criteria for ongoing BiPAP therapy hereafter. Will need to make arrangements for outpatient/home BiPAP at discharge - suspect multifactorial etiology including vocal cord paralysis, possible diaphragmatic paralysis, severe obstructive sleep apnea, sepsis presentation, and possibly a small component of cardiac volume overloaded state. Status: Acute (2) Neurogenic bladder: Problem details: -chronic indwelling catheter Status: Chronic (3) Decubitus ulcers: Problem details: - s/p debridement 08/28/23 - twice daily dressing changes to deeper wound - Wound Vac Status: Acute (4) Aure-rectal abscess: Problem details: -Perianal abscess with concern for necrotizing soft tissue infection. Low-grade fever, leukocytosis, lactate 1.1. Continue to trend. 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 q.8 hours, daptomycin (empiric coverage for enterococcus) 500 mg IV Q 24 hours. If found to be soft tissue infection, continue antibiotics for 2 weeks from most recent I&D. If osteomyelitis etiology, Infectious Disease service requests follow-up for further recommendations. 09/05: Based on cultures, this is a soft tissue infection, not a bone infection, continue current course of antibiotics for total of 14 days. Has a PICC in place -wound care recommendations per General Surgery (see Dr. Gallegos's note) -pain management to include scheduled Tylenol, p.r.n. Vistaril, ketorolac (1 time dose prn). Continue home gabapentin and prn oxycodone -MINIMIZE NARCOTICS WITH HISTORY OF PARALYZED VOCAL CORD, DIFFICULT INTUBATION/EXTUBATION -encourage postoperative pulmonary hygiene, aerobika, pulse oximetry with narcotics -08/30/2023: given current microbiology findings, will stop the daptomycin. Continue with ceftriaxone and metronidazole IV. -08/31/2023: Restarted daptomycin given the Enterococcus found in the wound cultures and urine culture. Prior history from a decade ago of probable urticaria from penicillin -09/03/2023: Initiated discussion with our general surgeon, Dr. Maria D Gallegos, about the possibility of a diverting colostomy to help with wound healing. For the time being this is not necessarily warranted or indicated. Should this be considered in the future will need to discuss further. 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 Excellent urine output. Weight starting to decrease. On 09/04/2023, furosemide dosing is 40 mg IV once daily. On 09/02/2023 and 09/03/2023 patient received furosemide 80 mg IV. At home patient is ordinarily on furosemide 20 mg orally once daily. - transthoracic echocardiogram 01/14/2023: Normal LV chamber size, hyperdynamic LV systolic function, EF greater than 75%. Mild mitral valve stenosis. Normal RV chamber size and function. - continue IV Lasix 40 mg q.a.m., transitioning to oral prior to discharge. Strict I&Os, daily weights. - hypokalemia, mild. Currently receiving KCL 20 mEq b.i.d., increased to 40 mEq b.i.d. x2 doses on 09/05, continue to follow Status: Acute (13) UTI (urinary tract infection): Problem details: -urine culture growing Enterococcus faecalis, sensitivities reviewed, continue current IV antibiotic course Status: Acute (14) Rash: Problem details: Area of erythema on left flank. Stable over the last 2 days. Continue to monitor. Considerations include drug eruption. Status: Acute Plan Continue in hospital for IV antibiotics and wound care. Estimate final day of treatment September 11. Look to [facility] facility for rehab. Time Spent With Patient Total time spent: Total time spent today is 40 minutes, 30 minutes in coordination of care and discussing with patient other providers ongoing management. Subjective Date Seen: 09/07/23 Interval history: Prerna Major is a 77 year old female paraplegic since childhood, neurogenic bladder with chronic indwelling Cristobal catheter, rheumatoid arthritis on chronic steroid, acute on chronic anemia, lower extremity edema on Lasix, PUD, chronic pressure ulcers is admitted to the CCU from the OR after emergent surgery taken from the ED for further management. Patient was seen in the ED for rectal pain x1 week with inability to have a bowel movement. Was seen by the wound care nurse today (who manages her wound VAC) with concerns for perirectal wound that is leaking some fluid and blood. Has been constipated, 3-4 bowel movements per week. Reports chills without measured fever, increased shortness of breath. Has a history of vocal cord paralysis. Reports upper abdominal fullness, mild nausea, no vomiting. She was taken to the operating room by Dr. Gallegos where she had debridement of a perianal abscess with seton placement. At that time she also had culture and biopsy of the bone done. Subsequent cultures have grown out Enterococcus faecalis from her wound and her urine and also Clostridium perfringens from her wound. She has a penicillin allergy and has been treated with daptomycin and oral metronidazole. Bone culture was negative so the plan of treatment was 2 weeks for her soft tissue infection. Initially started on ertapenem and now on daptomycin day 6. She has not had any further fevers. She has had hypoxic and hypercarbic respiratory failure. This is thought to be acute on chronic. She has long-time been suspected to have sleep apnea. Evaluation here shows ventilatory failure at night and she is now transition to BiPAP use when she is sleeping. This seems to be working fairly well for her. She is mildly hypoxic while she is awake during the day with O2 sats in the upper 80s. She reports feeling generally well today. No fevers, dyspnea, cough, nausea. She has a good appetite. No new concerns. Exam Narrative: Exam Narrative: She is alert and appears in no distress. Oriented to circumstances. Respirations are unlabored. Breath sounds are clear. Cardiovascular: S1, S2, regular rate and rhythm. Abdomen is soft without tenderness. Extremities without edema. Rash on her right flank is unchanged with erythema and induration. Const: Vital Signs, click to edit/add: Vital Signs - 24 hr 09/06/23 14:59 09/06/23 15:04 09/06/23 15:04 Temperature 98.2 F Pulse Rate 91 Pulse Rate [Pulse Oximeter] 94 Respiratory Rate 22 22 Blood Pressure [ri ght forearm] 116/53 L Pulse Oximetry 88 88 Oxygen Delivery Me thod Room Air Room Air Oxygen Flow Rate Fraction of Inspir ed Oxygen 09/06/23 19:17 09/06/23 23:00 09/06/23 23:00 Temperature 98.2 F Pulse Rate 76 Pulse Rate [Pulse Oximeter] 110 H Respiratory Rate 20 20 Blood Pressure [ri ght forearm] 131/72 Pulse Oximetry 88 Oxygen Delivery Me thod Room Air Oxygen Flow Rate Fraction of Inspir ed Oxygen 09/06/23 23:00 09/06/23 23:00 09/07/23 03:00 Temperature 98 F Pulse Rate Pulse Rate [Pulse Oximeter] 76 80 Respiratory Rate 20 16 20 Blood Pressure [ri ght forearm] 94/49 L Pulse Oximetry 90 90 92 Oxygen Delivery Me thod Room Air BiPAP BiPAP BiPAP Oxygen Flow Rate 0.5 0.5 0.5 Fraction of Inspir ed Oxygen 21 21 21 09/07/23 07:28 09/07/23 07:56 09/07/23 07:56 Temperature 97.7 F Pulse Rate 88 Pulse Rate [Pulse Oximeter] 88 Respiratory Rate 18 18 Blood Pressure [ri ght forearm] 145/65 H Pulse Oximetry 91 91 Oxygen Delivery Me thod BiPAP BiPAP Oxygen Flow Rate 0.5 0.5 Fraction of Inspir ed Oxygen 09/07/23 08:37 09/07/23 08:37 09/07/23 12:21 Temperature 98.4 F Pulse Rate Pulse Rate [Pulse Oximeter] 95 Respiratory Rate 22 22 Blood Pressure [ri ght forearm] 124/54 L Pulse Oximetry 88 87 L Oxygen Delivery Me thod Room Air Room Air Oxygen Flow Rate Fraction of Inspir ed Oxygen 09/07/23 13:05 Temperature Pulse Rate Pulse Rate [Pulse Oximeter] Respiratory Rate 16 Blood Pressure [ri ght forearm] Pulse Oximetry 82 L Oxygen Delivery Me thod Nasal Cannula Oxygen Flow Rate 0.5 Fraction of Inspir ed Oxygen Documenting provider has reviewed patient's vital signs: yes Labs Labs: Laboratory Results - last 24 hr 09/07/23 06:20 WBC 16.57 H RBC 4.38 Hgb 11.6 L Hct 38.8 MCV 89 MCH 27 MCHC 30 L Plt Count 329 Sodium 139 Potassium 4.4 Chloride 96 Carbon Dioxide 38 H Anion Gap 5 L BUN 12 Creatinine 0.4 L Estimated Creat Clear 34.38 Estimated GFR 103 Glucose 90 Calcium 7.9 L
--- NOTE | 2023-09-07 16:10 | PC.NURSE ---
Shift Summary: Patient pleasant and cooperative. T&R q2h and per patients request. Vitals stable, RT in to see patient and placed on o2 @ 0.25/NC. C/o pain x2, PRN medication given, see DEC. Wound dressing on right buttocks changed.
[2023-09-07] MEDS: ENOXAPARIN 40 MG/0.4 ML INJ SUBCUT (21:27)
[2023-09-08 03:00] VITALS: BP 150/67; PULSE 91; RESP 16; TEMP 36.4; O2SAT 88
[2023-09-08 05:09] LABS: Hematocrit 38.3 % (33.0-51.0); Hemoglobin* 11.4 gm/dL (12.0-16.0); Mean Corpuscular HGB Conc 30 gm/dL (32-36); Mean Corpuscular Hemoglobin 27 pg (26-34); Mean Corpuscular Volume 89 fL (80-100); Platelet Count* 334 K/uL (140-440); Red Blood Count 4.29 m/uL (4.00-5.20); White Blood Count* 14.84 K/uL (4.50-11.00)
[2023-09-08 05:18] LABS: Slide Review Reflex No
[2023-09-08 05:22] LABS: Chloride* 96 mmol/L (96-114); Potassium* 4.3 mmol/L (3.6-5.1); Sodium* 138 mmol/L (135-149)
[2023-09-08 05:25] LABS: Blood Urea Nitrogen* 14 mg/dL (7-30); Creatinine* 0.4 mg/dL (0.5-1.5); Est. Creatinine Clearance* 34.38; Estimated Glomerular Filt Rate 103 ml/min; Glucose* 103 mg/dL (60-115)
[2023-09-08 05:32] LABS: Anion Gap 3 mEq/L (7-15); Carbon Dioxide* 39 mmol/L (20-32)
--- NOTE | 2023-09-08 06:10 | PC.NURSE ---
Shift note: Packing changed once overnight, turned and repo Q2 hrs, tolerated both with no increase of pain. Sats 87-89% on BiPAP and/or low O2 flow.
[2023-09-08 07:00] VITALS: BP 141/75; PULSE 106; RESP 22; TEMP 36.9; O2SAT 88
[2023-09-08] MEDS: OXYCODONE 5 MG TABLET PO ×3 (07:59→20:35)
[2023-09-08] MEDS: FUROSEMIDE 40 MG TABLET PO (08:00)
[2023-09-08] MEDS: LACTOBACILLUS ACIDOPHILUS 1 TABLET 2 TAB PO ×3 (08:00→17:30)
[2023-09-08] MEDS: POTASSIUM CHLORIDE 10 MEQ CAPSULE ER 20 MEQ PO ×2 (08:03→17:32)
[2023-09-08] MEDS: ACETAMINOPHEN 325 MG TABLET 650 MG PO ×3 (09:21→20:55)
[2023-09-08] MEDS: GABAPENTIN 300 MG CAPSULE PO ×3 (09:21→20:54)
[2023-09-08] MEDS: predniSONE 5 MG TABLET 10 MG PO (09:21)
[2023-09-08] MEDS: OMEPRAZOLE 20 MG CAPSULE DR PO ×2 (09:22→20:54)
[2023-09-08] MEDS: METOPROLOL TARTRATE 25 MG TABLET 12.5 MG PO (09:22)
[2023-09-08] MEDS: metroNIDAZOLE 500 MG TABLET PO ×3 (09:22→20:54)
[2023-09-08] MEDS: SODIUM CHLORIDE 0.9 % (FLUSH) 10 ML SYRINGE 5 ML IVF ×2 (09:24→20:55)
--- NOTE | 2023-09-08 09:24 | RESP.RT ---
Patient wears BiPAP at night and for naps during the day. SpO2 on room air, (no BiPAP), observed 88-92%. Reported when sleeping on room air SaO2 will decrease to low 80's% or lower, when placed on BiPAP SaO2 climbs back to the 88-92%. Nursing reports there are periods of time when Pt does not breathe above the set back up rate of 10.
--- NOTE | 2023-09-08 10:10 | P.IMPN_ITS ---
Progress Note: A&P Assessment and plan (1) Acute on chronic respiratory failure with hypoxia and hypercapnia: Problem details: - VBG 08/29/2023: pH 7.23, pCO2 82, pO2 50, HCO3- 34. Bicarb on her chemistries remains elevated consistent with chronic CO2 retention. - metabolic encephalopathy, improved with BIPap. Meets qualification criteria for ongoing BiPAP therapy hereafter. Will need to make arrangements for outpatient/home BiPAP at discharge Patient has hypoxia while awake on room air. May have some central apnea. Because she retained CO2, supplemental oxygen without BiPAP is inappropriate. 09/08/2023: Having some increased hypoxia. Trial of furosemide to see if this will respond. Also note potential for eosinophilic pneumonia related to daptomycin. Status: Acute (2) Neurogenic bladder: Problem details: -chronic indwelling catheter Status: Chronic (3) Decubitus ulcers: Problem details: - s/p debridement 08/28/23 - twice daily dressing changes to deeper wound - Wound Vac Status: Acute (4) Aure-rectal abscess: Problem details: -Perianal abscess with concern for necrotizing soft tissue infection. Low-grade fever, leukocytosis, lactate 1.1. Continue to trend. 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 q.8 hours, daptomycin (empiric coverage for enterococcus) 500 mg IV Q 24 hours. If found to be soft tissue infection, continue antibiotics for 2 weeks from most recent I&D. If osteomyelitis etiology, Infectious Disease service requests follow-up for further recommendations. 09/05: Based on cultures, this is a soft tissue infection, not a bone infection, continue current course of antibiotics for total of 14 days. Has a PICC in place -wound care recommendations per General Surgery (see Dr. Gallegos's note) -pain management to include scheduled Tylenol, p.r.n. Vistaril, ketorolac (1 time dose prn). Continue home gabapentin and prn oxycodone -MINIMIZE NARCOTICS WITH HISTORY OF PARALYZED VOCAL CORD, DIFFICULT INTUBAT ION/EXTUBATION -encourage postoperative pulmonary hygiene, aerobika, pulse oximetry with narcotics On September 11 Patient will complete 2 weeks of IV daptomycin and metronidazole to treat Enterococcus faecalis in urine and wound. Clostridium perfringens also found in the wound. 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: - status post-surgical debridement 08/28/2023 - stable since - daptomycin, and metronidazole for 2 weeks Status: Acute (9) Chronic steroid use: Problem details: -for RA, continue usual dose of prednisone 10 po daily Status: Acute (10) Hypotension due to hypovolemia: Problem details: - resolved following normal saline IVF and stress dose of hydrocortisone x2 days - possibly from 3rd spacing, acute adrenal insufficiency, opioids, doubt sepsis Status: Acute (11) Intravenous infiltration: Problem details: PICC line Status: Acute (12) Acute on chronic diastolic heart failure: Problem details: - restarted diuresis 09/02/2023. Excellent urine output. Weight starting to decrease. On 09/04/2023, furosemide dosing is 40 mg IV once daily. On 09/02/2023 and 09/03/2023 patient received furosemide 80 mg IV. At home patient is ordinarily on furosemide 20 mg orally once daily. - transthoracic echocardiogram 01/14/2023: Normal LV chamber size, hyperdynamic LV systolic function, EF greater than 75%. Mild mitral valve stenosis. Normal RV chamber size and function. - continue IV Lasix 40 mg q.a.m., transitioning to oral prior to discharge. Strict I&Os, daily weights. - hypokalemia, mild. Currently receiving KCL 20 mEq b.i.d., increased to 40 mEq b.i.d. x2 doses on 09/05, continue to follow Status: Acute (13) UTI (urinary tract infection): Problem details: -urine culture growing Enterococcus faecalis, sensitivities reviewed, continue current IV antibiotic course Status: Acute (14) Rash: Problem details: Area of erythema on left flank. Stable over the last 2 days. Continue to monitor. Considerations include drug eruption. Status: Acute (15) Tachycardia: Problem details: Likely due to decreasing dose of metoprolol. Increase metoprolol to 50 mg daily total Status: Acute (16) CO2 retention: Problem details: Patient has severe CO2 retention. Cannot receive supplemental oxygen without BiPAP. She does hypoxia without dyspnea when she is awake on room air Status: Acute Plan Continue in hospital for management of soft tissue infection with perirectal abscess and acute on chronic respiratory failure. Time Spent With Patient Total time spent: Total time spent today is 60 minutes, 45 minutes in coordination of care discussing with patient other providers ongoing evaluation management of acute and chronic respiratory failure, perianal abscess Subjective Date Seen: 09/08/23 Interval history: Prerna Major is a 77 year old female paraplegic since childhood, neurogenic bladder with chronic indwelling Cristobal catheter, rheumatoid arthritis on chronic steroid, acute on chronic anemia, lower extremity edema on Lasix, PUD, chronic pressure ulcers is admitted to the CCU from the OR after emergent surgery taken from the ED for further management. Patient was seen in the ED for rectal pain x1 week with inability to have a bowel movement. Was seen by the wound care nurse today (who manages her wound VAC) with concerns for perirectal wound that is leaking some fluid and blood. Has been constipated, 3-4 bowel movements per week. Reports chills without measured fever, increased shortness of breath. Has a history of vocal cord paralysis. Reports upper abdominal fullness, mild nausea, no vomiting. She was taken to the operating room by Dr. Gallegos where she had debridement of a perianal abscess with seton placement. At that time she also had culture and biopsy of the bone done. Subsequent cultures have grown out Enterococcus faecalis from her wound and her urine and also Clostridium perfringens from her wound. She has a penicillin allergy and has been treated with daptomycin and oral metronidazole. Bone culture was negative so the plan of treatment was 2 weeks for her soft tissue infection. Initially started on ertapenem and now on daptomycin day 6. She has not had any further fevers. She has had hypoxic and hypercarbic respiratory failure. This is thought to be acute on chronic. She has long-time been suspected to have sleep apnea. Evaluation here shows ventilatory failure at night and she is now transition to BiPAP use when she is sleeping. This seems to be working fairly well for her. She is mildly hypoxic while she is awake during the day with O2 sats in the upper 80s. Mary has no new concerns today. She still having some perianal pain. Her diarrhea is a little better. She has been eating normally. She is not feeling short of breath but her O2 sats are often in the low 80s on room air when she is awake. She is using BiPAP at night which is working well for her. Exam Narrative: Exam Narrative: She is alert and appears in no distress. Breathing is unlabored. O2 sats in the low 90s on 2 L per nasal cannula. I shut off the oxygen and she drops to the upper 80s. She does not have any dyspnea or labored breathing with these. Respirations with a few basilar crackles bilaterally. Cardiovascular: S1, S2, regular tachycardia. Abdomen is soft without tenderness or mass. Extremities without edema. The left flank rash is not substantially changed. Const: Vital Signs, click to edit/add: Vital Signs - 24 hr 09/07/23 12:21 09/07/23 13:05 09/07/23 15:32 Temperature 98.4 F Pulse Rate [Pulse Oximeter] 95 Respiratory Rate 22 16 22 Blood Pressure [ri ght forearm] 124/54 L Pulse Oximetry 87 L 82 L 92 Oxygen Delivery Me thod Room Air Nasal Cannula Nasal Cannula Oxygen Flow Rate 0.5 0.5 Fraction of Inspir ed Oxygen 09/07/23 15:33 09/07/23 19:00 09/07/23 23:00 Temperature 96.9 F L 98.4 F Pulse Rate [Pulse Oximeter] 92 101 H 101 H Respiratory Rate 22 18 18 Blood Pressure [ri ght forearm] 110/46 L 118/61 Pulse Oximetry 93 90 Oxygen Delivery Me thod Nasal Cannula Nasal Cannula Oxygen Flow Rate 0.5 Fraction of Inspir ed Oxygen 09/07/23 23:00 09/07/23 23:00 09/08/23 03:00 Temperature 97.6 F Pulse Rate [Pulse Oximeter] 72 91 Respiratory Rate 12 12 16 Blood Pressure [ri ght forearm] 150/67 H Pulse Oximetry 89 89 88 Oxygen Delivery Me thod BiPAP BiPAP BiPAP Oxygen Flow Rate Fraction of Inspir ed Oxygen 09/08/23 07:00 09/08/23 07:00 09/08/23 07:00 Temperature 98.4 F Pulse Rate [Pulse Oximeter] 106 H Respiratory Rate 22 22 Blood Pressure [ri ght forearm] 141/75 H Pulse Oximetry 88 88 Oxygen Delivery Me thod Nasal Cannula Nasal Cannula Oxygen Flow Rate 0.5 0.5 Fraction of Inspir ed Oxygen 09/08/23 09:23 Temperature Pulse Rate [Pulse Oximeter] Respiratory Rate Blood Pressure [ri ght forearm] Pulse Oximetry Oxygen Delivery Me thod Oxygen Flow Rate Fraction of Inspir ed Oxygen 21 Documenting provider has reviewed patient's vital signs: yes Labs Labs: Laboratory Results - last 24 hr 09/08/23 04:00 WBC 14.84 H RBC 4.29 Hgb 11.4 L Hct 38.3 MCV 89 MCH 27 MCHC 30 L Plt Count 334 Sodium 138 Potassium 4.3 Chloride 96 Carbon Dioxide 39 H Anion Gap 3 L BUN 14 Creatinine 0.4 L Estimated Creat Clear 34.38 Estimated GFR 103 Glucose 103 Calcium 8.0 L
[2023-09-08] MEDS: METOPROLOL TARTRATE 25 MG TABLET PO ×2 (10:22→20:55)
[2023-09-08 10:48] LABS: Creatine Kinase* < 20 U/L (41-117)
[2023-09-08 11:00] VITALS: BP 102/50; PULSE 94; RESP 20; TEMP 37.6; O2SAT 87
[2023-09-08] MEDS: NYSTATIN POWDER 1 APPLIC TOPICAL ×2 (11:31→20:54)
--- NOTE | 2023-09-08 11:45 | CRLHL7_ITS ---
For Patients: As a result of the Cures Act, medical imaging exams and procedure reports are released immediately into your electronic medical record. You may view this report before your referring provider. If you have questions, please contact your health care provider. INDICATION: Hypoxia TECHNIQUE: Chest radiograph 1 view on 2 films COMPARISON: 09/02/2023 FINDINGS: The sensitivity and specificity of the exam are severely limited by the patient`s body habitus. Mediastinum: The mediastinum is normal in appearance. The heart silhouette is normal in size and morphology. A right PICC line is noted without interval change. Lung: Very small lung volumes are present with perihilar vascular crowding, atelectasis and mild ground-glass opacities noted without interval change. Trace right pleural effusion is present. No pneumothorax is identified. Bone and Soft tissue: Dextroscoliosis of the thoracic spine is present and status post bobby stabilization. IMPRESSION: 1. Very small lung volumes are present with perihilar vascular crowding, atelectasis and mild ground-glass opacities noted without interval change. Dictated by Kahlil Mccray MD @ 09/09/2023 7:56:34 AM Dictated by: Kahlil Mccray MD @ 09/09/2023 07:56:44 (Electronically Signed)
[2023-09-08 12:51] LABS: Basophils Absolute Auto 0.11 K/uL (0.00-0.30); Basophils Percent Auto 0.7 % (0.0-3.0); Eosinophils Absolute Auto 0.26 K/uL (0.00-0.50); Eosinophils Percent Auto 1.7 % (0.0-7.0); Immature Granulocytes Abs Auto 0.14 K/uL (0.00-0.30); Immature Granulocytes Pct Auto 0.9 %; Lymphocytes Percent Auto 14.2 % (20-44); Monocytes Percent Auto 8.8 % (0.0-11.0); Neutrophils Percent Auto 73.7 % (42.0-72.0); RDW Coefficient of Variation % 17.7 % (11.5-15.5)
[2023-09-08] MEDS: FUROSEMIDE 10 MG/ML inj 40 MG IVP (13:36)
[2023-09-08] MEDS: POTASSIUM BICARB 25 MEQ EFFERVESCENT TAB PO (13:36)
[2023-09-08 13:47] LABS: NT Pro B Type NatriureticPept* 2650 pg/mL
[2023-09-08] MEDS: DAPTOmycin 50 MG/ML inj 500 MG IVP (14:11)
[2023-09-08 15:00] VITALS: BP 112/60; PULSE 89; RESP 24; TEMP 37.1; O2SAT 88; O2SAT 89
--- NOTE | 2023-09-08 16:18 | PM.GSPN ---
Subjective Subjective Date Seen: 09/08/23 Interval history: Mary states that she is feeling better. Buttock pain has improved. She feels that her breathing is better. She is still requiring BiPAP though she is not wearing it all the time. Has been having low-grade fevers. Also having loose stools. Nursing has been changing her dressing twice a day with Fanny Exam Narrative: Exam Narrative: General: No acute distress Respiratory: Breathing is nonlabored. She is satting in the 80s on room air. Skin: Wound VAC in place. Buttock wound packing removed. This does still track deep approximately 7 cm. This no longer tracks posteriorly. There is no significant drainage though there was some loose stool noted in the wound. The patient has no periwound erythema. Sacral skin breakdown is stable to improved from last week. Patient notably has watery stool. Const: Vital Signs, click to edit/add: Vital Signs - 24 hr 09/07/23 19:00 09/07/23 23:00 09/07/23 23:00 Temperature 98.4 F Pulse Rate [Pulse Oximeter] 101 H 101 H Respiratory Rate 18 18 12 Blood Pressure [ri ght forearm] 118/61 Pulse Oximetry 90 89 Oxygen Delivery Me thod Nasal Cannula BiPAP Oxygen Flow Rate Fraction of Inspir ed Oxygen 09/07/23 23:00 09/08/23 03:00 09/08/23 07:00 Temperature 97.6 F 98.4 F Pulse Rate [Pulse Oximeter] 72 91 106 H Respiratory Rate 12 16 22 Blood Pressure [ri ght forearm] 150/67 H 141/75 H Pulse Oximetry 89 88 88 Oxygen Delivery Me thod BiPAP BiPAP Nasal Cannula Oxygen Flow Rate 0.5 Fraction of Inspir ed Oxygen 09/08/23 07:00 09/08/23 07:00 09/08/23 09:23 Temperature Pulse Rate [Pulse Oximeter] Respiratory Rate 22 Blood Pressure [ri ght forearm] Pulse Oximetry 88 Oxygen Delivery Me thod Nasal Cannula Oxygen Flow Rate 0.5 Fraction of Inspir ed Oxygen 21 09/08/23 11:00 Temperature 99.7 F H Pulse Rate [Pulse Oximeter] 94 Respiratory Rate 20 Blood Pressure [ri ght forearm] 102/50 L Pulse Oximetry 87 L Oxygen Delivery Me thod Room Air Oxygen Flow Rate Fraction of Inspir ed Oxygen Labs/Imaging Labs Labs: White blood cell count remains elevated at 14. Culture from abscess growing Clostridium perfringens as well as Enterococcus. Patient is on daptomycin and Flagyl. Progress Note: A&P Assessment and plan (1) Tachycardia: Problem details: Likely due to decreasing dose of metoprolol. Increase metoprolol to 50 mg daily total Status: Acute (2) CO2 retention: Problem details: Patient has severe CO2 retention. Cannot receive supplemental oxygen without BiPAP. She does hypoxia without dyspnea when she is awake on room air Status: Acute (3) Leukocytosis: Problem details: -continuing to downtrend, was 28,000 on presentation. Long history of leukocytosis. Remains afebrile Status: Acute (4) Acute on chronic respiratory failure with hypoxia and hypercapnia: Problem details: - VBG 08/29/2023: pH 7.23, pCO2 82, pO2 50, HCO3- 34. Bicarb on her chemistries remains elevated consistent with chronic CO2 retention. - metabolic encephalopathy, improved with BIPap. Meets qualification criteria for ongoing BiPAP therapy hereafter. Will need to make arrangements for outpatient/home BiPAP at discharge Patient has hypoxia while awake on room air. May have some central apnea. Because she retained CO2, supplemental oxygen without BiPAP is inappropriate. 09/08/2023: Having some increased hypoxia. Trial of furosemide to see if this will respond. Also note potential for eosinophilic pneumonia related to daptomycin. 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 q.8 hours, daptomycin (empiric coverage for enterococcus) 500 mg IV Q 24 hours. If found to be soft tissue infection, continue antibiotics for 2 weeks from most recent I&D. If osteomyelitis etiology, Infectious Disease service requests follow-up for further recommendations. 09/05: Based on cultures, this is a soft tissue infection, not a bone infection, continue current course of antibiotics for total of 14 days. Has a PICC in place -wound care recommendations per General Surgery (see Dr. Gallegos's note) -pain management to include scheduled Tylenol, p.r.n. Vistaril, ketorolac (1 time dose prn). Continue home gabapentin and prn oxycodone -MINIMIZE NARCOTICS WITH HISTORY OF PARALYZED VOCAL CORD, DIFFICULT INTUBATION/EXTUBATION -encourage postoperative pulmonary hygiene, aerobika, pulse oximetry with narcotics On September 11 Patient will complete 2 weeks of IV daptomycin and metronidazole to treat Enterococcus faecalis in urine and wound. Clostridium perfringens also found in the wound. Status: Acute Plan Patient is a 77-year-old female now approximately 11 days status post I and D of perianal abscess with fistula and gas-forming organisms. Her wound is getting smaller, however she now has loose stool which was contaminating her wound on my exam. She is on IV Flagyl, however certainly the antibiotic duration and white count as well as low-grade fever raises concern for C diff. -C diff was ordered. -consider adding fiber to help bulk up her stool -continue b.i.d. dressing changes with VASHE. T TH Sat the VAC changes -continue offloading and Mepilex to sacral wound. -patient has discharge instructions for follow-up ordered.
[2023-09-08 19:00] VITALS: BP 145/70; PULSE 95; RESP 20; TEMP 35.1; O2SAT 88
[2023-09-08] MEDS: ENOXAPARIN 40 MG/0.4 ML INJ SUBCUT (20:54)
--- NOTE | 2023-09-08 21:16 | PC.NURSE ---
Patient pleasant, alert, oriented. Remained in bed. Repositioned q 2hrs per patient comfort. O2 sats 83-88% on room air. Reported feeling SOB at times however patient declined BiPap use for low O2 sats. Dr Hauser updated. Patient educated on BiPap use for low O2 sat/SOB and to let staff know if she changed her mind.
[2023-09-08 21:51] LABS: C.Difficile Negative (Negative); CDIFFEPI 027 PRESUMPTIVE NEGATIVE (Negative)
[2023-09-08 23:00] VITALS: BP 87/54; PULSE 73; RESP 24; TEMP 36.3; O2SAT 95
[2023-09-09 03:00] VITALS: BP 100/56; PULSE 72; RESP 16; TEMP 35.8; O2SAT 92
[2023-09-09 06:37] LABS: Hematocrit 38.3 % (33.0-51.0); Hemoglobin* 11.3 gm/dL (12.0-16.0); Mean Corpuscular HGB Conc 30 gm/dL (32-36); Mean Corpuscular Hemoglobin 26 pg (26-34); Mean Corpuscular Volume 88 fL (80-100); Platelet Count* 349 K/uL (140-440); Red Blood Count 4.34 m/uL (4.00-5.20); White Blood Count* 14.88 K/uL (4.50-11.00)
[2023-09-09 06:38] LABS: Slide Review Reflex No
[2023-09-09 06:44] LABS: Chloride* 93 mmol/L (96-114)
[2023-09-09 06:45] LABS: Sodium* 138 mmol/L (135-149)
[2023-09-09 06:47] LABS: Creatinine* 0.4 mg/dL (0.5-1.5); Est. Creatinine Clearance* 34.38; Estimated Glomerular Filt Rate 103 ml/min
[2023-09-09 06:48] LABS: Blood Urea Nitrogen* 15 mg/dL (7-30); Glucose* 97 mg/dL (60-115)
[2023-09-09 06:55] LABS: Anion Gap 8 mEq/L (7-15); Carbon Dioxide* 37 mmol/L (20-32)
[2023-09-09 07:00] VITALS: BP 99/66; PULSE 72; PULSE 81; RESP 22; O2SAT 90
--- NOTE | 2023-09-09 07:43 | PC.NURSE ---
End of shift [id number] ? Pt alert, oriented, pleasant. Denied SOB, nausea, dizziness. Pt report of pain managed per interventions in DEC. Pt verbalized improvement. Cristobal catheter patent, pt incontinent of bowels. Dressing on sacral area and buttocks noted to have sanguinous drainage and fecal matter present after bowel movement. Dressing changed during shift. Pt repositioned q2h. Tolerating bipap during sleep. Pt appears to be resting comfortably at end of shift.
[2023-09-09 07:54] LABS: C Reactive Protein* 3.5 mg/dL (0.5-1.0)
[2023-09-09] MEDS: ACETAMINOPHEN 325 MG TABLET 650 MG PO ×3 (08:46→21:36)
[2023-09-09] MEDS: FUROSEMIDE 40 MG TABLET PO (08:46)
[2023-09-09] MEDS: POTASSIUM CHLORIDE 10 MEQ CAPSULE ER 20 MEQ PO ×2 (08:46→19:13)
[2023-09-09] MEDS: LACTOBACILLUS ACIDOPHILUS 1 TABLET 2 TAB PO ×3 (08:46→19:13)
[2023-09-09] MEDS: metroNIDAZOLE 500 MG TABLET PO ×3 (08:47→21:36)
[2023-09-09] MEDS: OXYCODONE 5 MG TABLET PO ×3 (08:47→19:13)
[2023-09-09] MEDS: GABAPENTIN 300 MG CAPSULE PO ×3 (08:47→21:37)
[2023-09-09] MEDS: predniSONE 5 MG TABLET 10 MG PO (08:47)
[2023-09-09] MEDS: NYSTATIN POWDER 1 APPLIC TOPICAL ×2 (08:47→21:37)
[2023-09-09] MEDS: OMEPRAZOLE 20 MG CAPSULE DR PO ×2 (08:47→21:36)
[2023-09-09] MEDS: METOPROLOL TARTRATE 25 MG TABLET PO ×2 (08:47→21:36)
[2023-09-09 11:00] VITALS: BP 118/57; PULSE 94; RESP 20; O2SAT 87
--- NOTE | 2023-09-09 12:54 | PC.SOCIAL ---
Addendum entered by CHANTE Gruber 09/09/23 15:24: Discharge planning: [facility] in [place] called this social service worker this afternoon and shared that they were declining the pt at this time due to their facility not being able to care for paraplegia. Social work to follow-up as needed. Addendum entered by CHANTE Gruber 09/09/23 15:03: Discharge planning: A referral packet for pt was also faxed to [facility] in [place] today. Plastic Top [employer]sembler will wait to hear back from [facility] on whether or not they can accept pt. Social work to follow-up as needed. Addendum entered by CHANTE Gruber 09/09/23 13:00: Social work to follow-up as needed. Original Note: Discharge planning: Spoke with [facility] in [place] and they do have rehabilitation beds open right now and requested a referral packet to be sent over. Faxed over referral packet for pt today and will wait to hear back from [facility]. The plan is still for pt to discharge from the hospital on or Friday of this week.
--- NOTE | 2023-09-09 12:58 | PC.SOCIAL ---
Addendum entered by CHANTE Gruber 09/09/23 15:08: Discharge planning: iron worker foreman also contacted [facility] in [place] today and asked about rehab bed availability and they said they do not have any bed availability right now and the earliest opening would most likely be early next week. Social work to follow-up as needed. Original Note: Discharge planning: An updated referral packet for pt was emailed over to Rosalva at [facility] on 09/08/2023. [facility] will review the pt's packet again to see if they can accept her or not into their facility. Social work to follow-up as needed.
[2023-09-09] MEDS: SODIUM CHLORIDE 0.9 % (FLUSH) 10 ML SYRINGE 5 ML IVF ×2 (13:15→21:37)
[2023-09-09] MEDS: DAPTOmycin 50 MG/ML inj 500 MG IVP (13:58)
[2023-09-09 15:00] VITALS: BP 122/65; PULSE 92; RESP 30; TEMP 37; O2SAT 87
--- NOTE | 2023-09-09 15:50 | P.IMPN_ITS ---
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 q.8 hours, daptomycin (empiric coverage for enterococcus) 500 mg IV Q 24 hours. If found to be soft tissue infection, continue antibiotics for 2 weeks from most recent I&D. If osteomyelitis etiology, Infectious Disease service requests follow-up for further recommendations. 09/05: Based on cultures, this is a soft tissue infection, not a bone infection, continue current course of antibiotics for total of 14 days. Has a PICC in place -wound care recommendations per General Surgery (see Dr. Gallegos's note) -pain management to include scheduled Tylenol, p.r.n. Vistaril, ketorolac (1 time dose prn). Continue home gabapentin and prn oxycodone -MINIMIZE NARCOTICS WITH HISTORY OF PARALYZED VOCAL CORD, DIFFICULT IN TUBATION/EXTUBATION -encourage postoperative pulmonary hygiene, aerobika, pulse oximetry with narcotics On September 11 Patient will complete 2 weeks of IV daptomycin and metronidazole to treat Enterococcus faecalis in urine and wound. Clostridium perfringens also found in the wound. 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 Continue wound cares. Pending further recommendations general surgery Status: Chronic (4) Acute on chronic respiratory failure with hypoxia and hypercapnia: Problem details: - VBG 08/29/2023: pH 7.23, pCO2 82, pO2 50, HCO3- 34. Bicarb on her chemistries remains elevated consistent with chronic CO2 retention. - metabolic encephalopathy, improved with BIPap. Meets qualification criteria for ongoing BiPAP therapy hereafter. Will need to make arrangements for outpatient/home BiPAP at discharge Patient has hypoxia while awake on room air. May have some central apnea. Because she retained CO2, supplemental oxygen without BiPAP is inappropriate. 09/08/2023: Having some increased hypoxia. Trial of furosemide to see if this will respond. Also note potential for eosinophilic pneumonia related to daptomycin. Status: Acute (5) CO2 retention: Problem details: Patient has severe CO2 retention. Cannot receive supplemental oxygen without BiPAP. She does have hypoxia without dyspnea when she is awake on room air Status: Acute (6) Leukocytosis: Problem details: -continuing to downtrend, was 28,000 on presentation. Long history of leukocytosis. Remains afebrile Status: Acute (7) Neurogenic bladder: Problem details: -chronic indwelling catheter Status: Chronic (8) Chronic steroid use: Problem details: -for RA, continue usual dose of prednisone 10 po daily Status: Acute (9) Rheumatoid arthritis: Problem details: -on chronic daily prednisone 10 mg, continue Status: Acute (10) Paraplegia: Problem details: -since age 6; muscle atrophy (chronic) bilaterally Status: Chronic Plan Continue in-hospital through September 11 for IV daptomycin. Planning for detention facility treatment for wound care following that. Time Spent With Patient Total time spent: Total time spent today is 40 minutes, 30 minutes in coordination of care and discussing with patient family and other providers ongoing plan of care Subjective Date Seen: 09/09/23 Interval history: Prerna Major is a 77 year old female paraplegic since childhood, neurogenic bladder with chronic indwelling Cristobal catheter, rheumatoid arthritis on chronic steroid, acute on chronic anemia, lower extremity edema on Lasix, PUD, chronic pressure ulcers is admitted to the CCU from the OR after emergent surgery taken from the ED for further management. Patient was seen in the ED for rectal pain x1 week with inability to have a bowel movement. Was seen by the wound care nurse today (who manages her wound VAC) with concerns for perirectal wound that is leaking some fluid and blood. Has been constipated, 3-4 bowel movements per week. Reports chills without measured fever, increased shortness of breath. Has a history of vocal cord paralysis. Reports upper abdominal fullness, mild nausea, no vomiting. She was taken to the operating room by Dr. Gallegos where she had debridement of a perianal abscess with seton placement. At that time she also had culture and biopsy of the bone done. Subsequent cultures have grown out Enterococcus faecalis from her wound and her urine and also Clostridium perfringens from her wound. She has a penicillin allergy and has been treated with daptomycin and oral metronidazole. Bone culture was negative so the plan of treatment was 2 weeks for her soft tissue infection. Initially started on ertapenem and now on daptomycin day 6. She has not had any further fevers. She has had hypoxic and hypercarbic respiratory failure. This is thought to be acute on chronic. She has long-time been suspected to have sleep apnea. Evaluation here shows ventilatory failure at night and she is now transition to BiPAP use when she is sleeping. This seems to be working fairly well for her. She is mildly hypoxic while she is awake during the day with O2 sats in the u pper 80s. Mary has no new concerns today. She still having some perianal pain. Her diarrhea is a little better. She has been eating normally. She is not feeling short of breath but her O2 sats are often in the low 80s on room air when she is awake. She is using BiPAP at night which is working well for her. Exam Narrative: Exam Narrative: She is alert and appears in no distress. Seen with family today. Respirations are clear to auscultation without wheezing rales or rhonchi. Decreased breath sounds in all lung nguyen. Cardiovascular: S1, S2, regular rate and rhythm. No murmur gallop or rub. Abdomen: Bowel sounds active. Abdomen is soft without tenderness. No extremity edema. Const: Vital Signs, click to edit/add: Vital Signs - 24 hr 09/08/23 19:00 09/08/23 23:00 09/08/23 23:00 Temperature 95.1 F L 97.3 F L Pulse Rate [Pulse Oximeter] 95 73 Respiratory Rate 20 24 Blood Pressure [ri ght forearm] 145/70 H 87/54 L Pulse Oximetry 88 95 95 Oxygen Delivery Me thod Room Air BiPAP BiPAP Fraction of Inspir ed Oxygen 21 09/09/23 03:00 09/09/23 07:00 09/09/23 07:00 Temperature 96.5 F L Pulse Rate [Pulse Oximeter] 72 72 Respiratory Rate 16 22 22 Blood Pressure [ri ght forearm] 100/56 L Pulse Oximetry 92 90 Oxygen Delivery Me thod BiPAP Room Air Fraction of Inspir ed Oxygen 09/09/23 07:00 09/09/23 09:08 09/09/23 11:00 Temperature Pulse Rate [Pulse Oximeter] 81 94 Respiratory Rate 22 20 Blood Pressure [ri ght forearm] 99/66 118/57 L Pulse Oximetry 90 87 L Oxygen Delivery Me thod Room Air Room Air Fraction of Inspir ed Oxygen 21 Documenting provider has reviewed patient's vital signs: yes Labs Labs: Laboratory Results - last 24 hr 09/08/23 09/09/23 09/09/23 16:02 06:00 07:25 WBC 14.88 H RBC 4.34 Hgb 11.3 L Hct 38.3 MCV 88 MCH 26 MCHC 30 L Plt Count 349 Sodium 138 Potassium 4.0 Chloride 93 L Carbon Dioxide 37 H Anion Gap 8 BUN 15 Creatinine 0.4 L Estimated Creat Clear 34.38 Estimated GFR 103 Glucose 97 Calcium 8.0 L C-Reactive Protein 3.5 H Stl C. diff Tox B Gene Negative Stl C. diff [id number] PRESUMPTIVE NEGATIVE Lab Acknowledgement Test Added
[2023-09-09 19:00] VITALS: BP 145/87; PULSE 91; RESP 20; TEMP 35.2; O2SAT 90
--- NOTE | 2023-09-09 19:43 | PC.NURSE ---
Nursing Care Hours: [id number] Pt this shift calm and cooperative with cares, alert and oriented. BM x1. Cristobal patent. C/o 05/22 pain to R glute. Repositioned every 2 hrs, pain meds PRN. Wet to dry dressing change. Deferred wound vac dressing change to oncoming nurse. Tear to L inner groin noted. Stable on RA. PICC patent, asymptomatic. Redness to L lateral side tender but within the outline border. Up in chair for about 2 hours. Hair brushed.
[2023-09-09] MEDS: ENOXAPARIN 40 MG/0.4 ML INJ SUBCUT (21:37)
[2023-09-09 23:00] VITALS: O2SAT 90
[2023-09-10] VITALS (7 sets, daily range): BP systolic 108–143; BP diastolic 41–75; PULSE 63–97; RESP 12–20; TEMP 35.8–36.8; O2SAT 91–95
[2023-09-10 06:00] LABS: Hematocrit 37.9 % (33.0-51.0); Hemoglobin* 11.2 gm/dL (12.0-16.0); Mean Corpuscular HGB Conc 30 gm/dL (32-36); Mean Corpuscular Hemoglobin 26 pg (26-34); Mean Corpuscular Volume 89 fL (80-100); Platelet Count* 329 K/uL (140-440); Red Blood Count 4.28 m/uL (4.00-5.20)
[2023-09-10 06:02] LABS: Slide Review Reflex No
[2023-09-10 06:14] LABS: Chloride* 94 mmol/L (96-114); Sodium* 137 mmol/L (135-149)
[2023-09-10 06:17] LABS: Anion Gap 4 mEq/L (7-15); Carbon Dioxide* 39 mmol/L (20-32); Creatinine* 0.3 mg/dL (0.5-1.5); Est. Creatinine Clearance* 34.38; Estimated Glomerular Filt Rate 110 ml/min
[2023-09-10 06:18] LABS: Blood Urea Nitrogen* 18 mg/dL (7-30); Calcium* 8.1 mg/dL (8.4-10.6); Glucose* 118 mg/dL (60-115)
--- NOTE | 2023-09-10 06:33 | PC.NURSE ---
End of shift [id number] ? Pt alert, oriented to self, time, and situation, and cooperative during shift. Tolerating RA while awake and maintaining O2 saturation at 90% or higher. BiPap on while pt sleeping, maintaining O2 saturation above 90%. Pt repositioned q2H and tolerating well. Wound vac and sacral dressing changes completed during shift, pt tolerated dressing change well. Pt observed to sleep, appears to be resting comfortably at the end of shift. ?
--- NOTE | 2023-09-10 08:18 | PC.SOCIAL ---
Discharge planning: food prep worker heard back from [facility] on Friday(09/09) and they are not able to accept pt into their facility at this time. food prep worker will continue to look for rehabilitation placement for pt and also connect with pt's daughter about the referral outcomes thus far. Social work to follow-up as needed.
[2023-09-10] MEDS: predniSONE 5 MG TABLET 10 MG PO (08:41)
[2023-09-10] MEDS: GABAPENTIN 300 MG CAPSULE PO ×3 (08:41→20:04)
[2023-09-10] MEDS: metroNIDAZOLE 500 MG TABLET PO ×3 (08:42→20:06)
[2023-09-10] MEDS: METOPROLOL TARTRATE 25 MG TABLET PO ×2 (08:42→20:05)
[2023-09-10] MEDS: POTASSIUM CHLORIDE 10 MEQ CAPSULE ER 20 MEQ PO ×2 (08:42→17:29)
[2023-09-10] MEDS: ACETAMINOPHEN 325 MG TABLET 650 MG PO ×3 (08:42→21:24)
[2023-09-10] MEDS: FUROSEMIDE 40 MG TABLET PO (08:43)
[2023-09-10] MEDS: OMEPRAZOLE 20 MG CAPSULE DR PO ×2 (08:43→20:05)
[2023-09-10] MEDS: OXYCODONE 5 MG TABLET PO ×3 (08:45→20:06)
[2023-09-10] MEDS: LACTOBACILLUS ACIDOPHILUS 1 TABLET 2 TAB PO ×3 (08:45→17:29)
--- NOTE | 2023-09-10 08:52 | RESP.RT ---
Pt wears BIPAP at night and with naps. 20/10cwp. 21%. During naps, RR 18-22. Tidal Volumes vary, usually around 400cc.
--- NOTE | 2023-09-10 12:13 | PM.IMPN1 ---
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 q.8 hours, daptomycin (empiric coverage for enterococcus) 500 mg IV Q 24 hours. If found to be soft tissue infection, continue antibiotics for 2 weeks from most recent I&D. If osteomyelitis etiology, Infectious Disease service requests follow-up for further recommendations. 09/05: Based on cultures, this is a soft tissue infection, not a bone infection, continue current course of antibiotics for total of 14 days. Has a PICC in place -wound care recommendations per General Surgery (see Dr. Gallegos's note) -pain management to include scheduled Tylenol, p.r.n. Vistaril, ketorolac (1 time dose prn). Continue home gabapentin and prn oxycodone -MINIMIZE NARCOTICS WITH HISTORY OF PARALYZED VOCAL CORD, DIFFICULT INTUBATION/EXTUBATION -encourage postoperative pulmonary hygiene, aerobika, pulse oximetry with narcotics On September 11 Patient will complete 2 weeks of IV daptomycin and metronidazole to treat Enterococcus faecalis in urine and wound. Clostridium perfringens also found in the wound. 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 Continue wound cares. Pending further recommendations general surgery Status: Chronic (4) Acute on chronic respiratory failure with hypoxia and hypercapnia: Problem details: - VBG 08/29/2023: pH 7.23, pCO2 82, pO2 50, HCO3- 34. Bicarb on her chemistries remains elevated consistent with chronic CO2 retention. - metabolic encephalopathy, improved with BIPap. Meets qualification criteria for ongoing BiPAP therapy hereafter. Will need to make arrangements for outpatient/home BiPAP at discharge Patient has hypoxia while awake on room air. May have some central apnea. Because she retained CO2, supplemental oxygen without BiPAP is inappropriate. 09/08/2023: Having some increased hypoxia. Trial of furosemide to see if this will respond. Also note potential for eosinophilic pneumonia related to daptomycin. Status: Acute (5) CO2 retention: Problem details: Patient has severe CO2 retention. Cannot receive supplemental oxygen without BiPAP. She does have hypoxia without dyspnea when she is awake on room air Status: Acute (6) Leukocytosis: Problem details: -continuing to downtrend, was 28,000 on presentation. Long history of leukocytosis. Remains afebrile Status: Acute (7) Neurogenic bladder: Problem details: -chronic indwelling catheter Status: Chronic (8) Chronic steroid use: Problem details: -for RA, continue usual dose of prednisone 10 po daily Status: Acute (9) Rheumatoid arthritis: Problem details: -on chronic daily prednisone 10 mg, continue Status: Acute (10) Paraplegia: Problem details: -since age 6; muscle atrophy (chronic) bilaterally Status: Chronic Plan Continue in hospital for IV antibiotics pending skilled nursing placement for dressing change and BiPAP therapy. Time Spent With Patient Total time spent: Total time spent today is 25 minutes, 20 minutes in coordination of care discussing with patient and other providers ongoing plan of care Subjective Date Seen: 09/10/23 Interval history: Prerna Major is a 77 year old female paraplegic since childhood, neurogenic bladder with chronic indwelling Cristobal catheter, rheumatoid arthritis on chronic steroid, acute on chronic anemia, lower extremity edema on Lasix, PUD, chronic pressure ulcers is admitted to the CCU from the OR after emergent surgery taken from the ED for further management. Patient was seen in the ED for rectal pain x1 week with inability to have a bowel movement. Was seen by the wound care nurse today (who manages her wound VAC) with concerns for perirectal wound that is leaking some fluid and blood. Has been constipated, 3-4 bowel movements per week. Reports chills without measured fever, increased shortness of breath. Has a history of vocal cord paralysis. Reports upper abdominal fullness, mild nausea, no vomiting. She was taken to the operating room by Dr. Gallegos where she had debridement of a perianal abscess with seton placement. At that time she also had culture and biopsy of the bone done. Subsequent cultures have grown out Enterococcus faecalis from her wound and her urine and also Clostridium perfringens from her wound. She has a penicillin allergy and has been treated with daptomycin and oral metronidazole. Bone culture was negative so the plan of treatment was 2 weeks for her soft tissue infection. Initially started on ertapenem and now on daptomycin day 6. She has not had any further fevers. She has had hypoxic and hypercarbic respiratory failure. This is thought to be acute on chronic. She has long-time been suspected to have sleep apnea. Evaluation here shows ventilatory failure at night and she is now transition to BiPAP use when she is sleeping. This seems to be working fairly well for her. She is mildly hypoxic while she is awake during the day with O2 sats in the upper 80s. Mary has no new concerns today. She still having some perianal pain. She has been eating normally. She is not feeling short of breath but her O2 sats are often in the low 80s on room air when she is awake. She is using BiPAP at night which is working well for her. Exam Narrative: Exam Narrative: She is alert and appears in no distress. She is breathing comfortably on room air with O2 sats at 91%. She is oriented pleasant. Respirations are clear to auscultation. Cardiovascular: S1, S2, regular rate and rhythm. Abdomen: Bowel sounds active. Abdomen is soft without tenderness or mass. Extremities without edema. Const: Vital Signs, click to edit/add: Vital Signs - 24 hr 09/09/23 15:00 09/09/23 15:00 09/09/23 15:00 Temperature 98.6 F Pulse Rate [Pulse Oximeter] 92 92 Respiratory Rate 30 H 30 H 30 H Blood Pressure [ri ght forearm] 122/65 Pulse Oximetry 87 L 87 L Oxygen Delivery Me thod Room Air Room Air Fraction of Inspir ed Oxygen 09/09/23 19:00 09/09/23 23:00 09/10/23 03:00 Temperature 95.4 F L 96.5 F L Pulse Rate [Pulse Oximeter] 91 63 Respiratory Rate 20 12 Blood Pressure [ri ght forearm] 145/87 H 118/73 Pulse Oximetry 90 90 95 Oxygen Delivery Me thod Room Air BiPAP BiPAP Fraction of Inspir ed Oxygen 21 09/10/23 07:00 09/10/23 08:36 09/10/23 08:51 Temperature 97.8 F Pulse Rate [Pulse Oximeter] 89 Respiratory Rate 16 18 Blood Pressure [ri ght forearm] 138/41 L Pulse Oximetry 92 94 Oxygen Delivery Me thod Room Air Room Air Fraction of Inspir ed Oxygen 21 Documenting provider has reviewed patient's vital signs: yes Labs Labs: Laboratory Results - last 24 hr 09/10/23 05:55 WBC 13.20 H RBC 4.28 Hgb 11.2 L Hct 37.9 MCV 89 MCH 26 MCHC 30 L Plt Count 329 Sodium 137 Potassium 4.0 Chloride 94 L Carbon Dioxide 39 H Anion Gap 4 L BUN 18 Creatinine 0.3 L Estimated Creat Clear 34.38 Estimated GFR 110 Glucose 118 H Calcium 8.1 L
[2023-09-10] MEDS: SODIUM CHLORIDE 0.9 % (FLUSH) 10 ML SYRINGE 5 ML IVF ×3 (12:50→20:06)
[2023-09-10] MEDS: NYSTATIN POWDER 1 APPLIC TOPICAL ×2 (14:03→20:06)
--- NOTE | 2023-09-10 14:15 | PC.SOCIAL ---
Social work: Received call from Lu at [facility] stating pt is currently on service with them. Updated her on plan for discharge ti senior living. Lu requested an update when dischareg plans are solidified. making line worker to follow up as needed.
[2023-09-10] MEDS: DAPTOmycin 50 MG/ML inj 500 MG IVP (14:38)
--- NOTE | 2023-09-10 15:29 | PC.NURSE ---
shift note: pt up in wc 1hr and tolerated well. pt medicated prior to sitting in wc for 8/[address]sg to perirectal wound per d.o. wound bed pink with defined edges. wound vac changed. sacral drsg applied to protect buttock crease from breakdown due to redness. pt has resolving redness/swelling on lt flank & buttock. Rt thigh with slight redness. groin folds slightly red. pt off bipap this a.m @ 0830 and maintained sats 88-94% RA. PICC line patent with flush and site c/d/i
--- NOTE | 2023-09-10 16:26 | PC.SOCIAL ---
Addendum entered by CHANTE Gruber 09/10/23 16:57: bunk house worker also spoke with [facility] in [place] and they shared with this social sciences professor that they do not accept [employer] Medicare insurance at their facility. Social work to follow-up as needed. Original Note: Discharge planning: Called multiple facilities today to see about rehabilitation openings for pt. bunk house worker left messages at [facility] in [place], [facility], [facility], [facility], [facility] [place] and [facility] in [place]. bunk house worker did send over a referral packet to [facility], but has not heard back from them yet. Although [facility] in [place] stated earlier this week that they would most likely not have openings until early next week, this worker still sent over a referral packet to them at the pt's families request; however, [facility] declined the referral due to pt's level of care needed. bunk house worker called [facility] in [place] and they also declined the pt due to not being able to accept Bi-pap machines. bunk house worker also spoke with [facility] in [place] and their manager cost will be getting back to this worker tomorrow(09/11) about whether or not they can accept a pt with a Wound Vac and Bi-pap machine. bunk house worker did speak with the Admissions Department at [facility] in [place] about a rehab bed opening and the Director stated that they could accommodate the pt and her needs. bunk house worker left a message with pt's daughter, Elvi, asking for a call back to discuss updates with her on the progress of finding placement for her mother. bunk house worker did meet with pt, her daughter and earlier today in the pt's room and discussed the outcomes of the referrals thus far. Pt and family are aware that [facility] in [place] and [facility] in [place] have declined the pt due to level of care needed. Pt had some questions about open enrollment with Medicare and this social sciences professor referred her to this worker's supervisor plastering for those questions. Social work to follow-up as needed.
[2023-09-10] MEDS: ENOXAPARIN 40 MG/0.4 ML INJ SUBCUT (20:04)
--- NOTE | 2023-09-10 21:54 | PC.NURSE ---
Addendum entered by Alaina Kahn RN 09/10/23 22:10: BiPAP on @ 2200. Alaina Kahn RN Original Note: Slightly elevated BP, pulse in 90s, otherwise VSS. RA- saturations high 80s to low 90s. Back and buttock pain of 6-8 this evening- relieved w/ repositioning and PRN oxy & scheduled tylenol. Tolerating regular diet- ate 100% of dinner. Drinking well. Cristobal catheter draining light ankit urine, some sediment- 375 cc out. Moderate loose BM x2. Perianal wound dressing & sacral mepilex changed. Wound vac to right upper buttock. Reddened hips, groin, and thigh area. PICC in right UA- SL'd. Will continue to monitor, follow POC, and keep pt and family updated. Alaina Kahn RN
[2023-09-11 03:00] VITALS: BP 112/65; PULSE 75; RESP 12; TEMP 36.4; O2SAT 96
--- NOTE | 2023-09-11 05:24 | PC.NURSE ---
Assumed care of patient at 2300. Patient has been A&O and VSS. On BiPAP overnight. Patient repositioned q2H and per her request. Tolerated repositioning well. Pt had x3 BM smears. Sacral packing in place. Right buttock wound vac intact @ 125 mmHg. RUE PICC patent, flushing well & dressing intact. SCD's in place. Cristobal patent & draining clear, ankit urine. Redness to left abd/flank has not expanded past outline nor has it receded. Patient denied having intolerable pain overnight, refused her 0230 Tylenol dose.
[2023-09-11 07:00] VITALS: RESP 16; O2SAT 88
[2023-09-11 08:39] VITALS: BP 146/50; PULSE 94; RESP 18; TEMP 36.6; O2SAT 91
[2023-09-11] MEDS: NYSTATIN POWDER 1 APPLIC TOPICAL ×2 (08:49→20:51)
[2023-09-11] MEDS: OXYCODONE 5 MG TABLET PO ×3 (08:49→20:46)
[2023-09-11] MEDS: POTASSIUM CHLORIDE 10 MEQ CAPSULE ER 20 MEQ PO ×2 (08:49→18:25)
[2023-09-11] MEDS: ACETAMINOPHEN 325 MG TABLET 650 MG PO ×3 (08:50→20:44)
[2023-09-11] MEDS: FUROSEMIDE 40 MG TABLET PO (08:50)
[2023-09-11] MEDS: METOPROLOL TARTRATE 25 MG TABLET PO ×2 (08:50→20:45)
[2023-09-11] MEDS: metroNIDAZOLE 500 MG TABLET PO ×2 (08:50→14:54)
[2023-09-11] MEDS: predniSONE 5 MG TABLET 10 MG PO (08:50)
[2023-09-11] MEDS: OMEPRAZOLE 20 MG CAPSULE DR PO ×2 (08:50→20:45)
[2023-09-11] MEDS: SODIUM CHLORIDE 0.9 % (FLUSH) 10 ML SYRINGE 5 ML IVF ×2 (08:51→20:46)
[2023-09-11] MEDS: GABAPENTIN 300 MG CAPSULE PO ×3 (08:51→20:45)
[2023-09-11] MEDS: LACTOBACILLUS ACIDOPHILUS 1 TABLET 2 TAB PO ×2 (12:47→18:25)
--- NOTE | 2023-09-11 13:17 | PM.GSPN ---
Subjective Subjective Date Seen: 09/11/23 Interval history: Mary continues on as an inpatient, working on respiratory status and getting wound cares. She is on day 14 of 14 of treatment for her right perianal abscess with fistula. There was some concern because the drainage on the gauze has now been brown. She has had loose stools though for the last several days. She also has an area on her left flank which is reddened. Exam Narrative: Exam Narrative: General: No acute distress. Breathing is nonlabored on room air Skin: On her left flank she has a red area that is blanching, appears somewhat cellulitic. This has been present for several days. Per the hospitalist it is improving. No tissue trauma or open wounds noted. She has 2 small open areas on her coccyx. This is covered by Mepilex. Not appreciably worsened. Area around the coccyx is reddened. Regarding her perianal wound. This tracks deep approximately 7 cm. Also it tracks posteriorly, which is stable from postop, however, on my last exam 2 days ago it felt as though this area had closed off. Examination of the gauze which was removed from the wound shows stool soilage. Const: Vital Signs, click to edit/add: Vital Signs - 24 hr 09/10/23 14:12 09/10/23 15:00 09/10/23 15:00 Temperature 97.8 F 98.1 F Pulse Rate [Pulse Oximeter] 85 85 85 Respiratory Rate 16 18 18 Blood Pressure [ri ght forearm] 124/57 L 121/74 Pulse Oximetry 92 91 Oxygen Delivery Me thod Room Air Room Air 09/10/23 15:00 09/10/23 19:00 09/10/23 23:00 Temperature 98.3 F Pulse Rate [Pulse Oximeter] 97 80 Respiratory Rate 18 20 Blood Pressure [ri ght forearm] 143/75 H Pulse Oximetry 91 95 Oxygen Delivery Me thod Room Air Room Air 09/10/23 23:00 09/10/23 23:00 09/11/23 03:00 Temperature 97 F L 97.6 F Pulse Rate [Pulse Oximeter] 80 75 Respiratory Rate 20 20 12 Blood Pressure [ri ght forearm] 108/58 L 112/65 Pulse Oximetry 94 94 96 Oxygen Delivery Me thod BiPAP BiPAP BiPAP 09/11/23 07:00 09/11/23 08:39 Temperature 98 F Pulse Rate [Pulse Oximeter] 94 Respiratory Rate 16 18 Blood Pressure [ri ght forearm] 146/50 H Pulse Oximetry 88 91 Oxygen Delivery Me thod Room Air Room Air Labs/Imaging Labs Labs: White blood cell count is 13. Progress Note: A&P Assessment and plan (1) Acute on chronic respiratory failure with hypoxia and hypercapnia: Problem details: - VBG 08/29/2023: pH 7.23, pCO2 82, pO2 50, HCO3- 34. Bicarb on her chemistries remains elevated consistent with chronic CO2 retention. - metabolic encephalopathy, improved with BIPap. Meets qualification criteria for ongoing BiPAP therapy hereafter. Will need to make arrangements for outpatient/home BiPAP at discharge Patient has hypoxia while awake on room air. May have some central apnea. Because she retained CO2, supplemental oxygen without BiPAP is inappropriate. 09/08/2023: Having some increased hypoxia. Trial of furosemide to see if this will respond. Also note potential for eosinophilic pneumonia related to daptomycin. Status: Acute (2) Chronic steroid use: Problem details: -for RA, continue usual dose of prednisone 10 po daily Status: Acute (3) Decubitus ulcers: Problem details: - s/p debridement 08/28/23 - twice daily dressing changes to deeper wound - Wound Vac Status: Acute (4) Aure-rectal abscess: Problem details: -Status post Incision and drainage right perianal abscess with seton placement, Bone biopsy chronic right ischial tuberosity wound 08/28/2023 -wound cultures: Results and sensitivities as noted in HPI -Infectious Disease consulted recommending ceftriaxone IV 2 g Q 24 hours, Flagyl 500 mg p.o. q.8 hours, daptomycin (empiric coverage for enterococcus) 500 mg IV Q 24 hours. If found to be soft tissue infection, continue antibiotics for 2 weeks from most recent I&D. If osteomyelitis etiology, Infectious Disease service requests follow-up for further recommendations. 09/05: Based on cultures, this is a soft tissue infection, not a bone infection, continue current course of antibiotics for total of 14 days. Has a PICC in place -wound care recommendations per General Surgery (see Dr. Gallegos's note) -pain management to include scheduled Tylenol, p.r.n. Vistaril, ketorolac (1 time dose prn). Continue home gabapentin and prn oxycodone -MINIMIZE NARCOTICS WITH HISTORY OF PARALYZED VOCAL CORD, DIFFICULT INTUBATION/EXTUBATION -encourage postoperative pulmonary hygiene, aerobika, pulse oximetry with narcotics On September 11 Patient will complete 2 weeks of IV daptomycin and metronidazole to treat Enterococcus faecalis in urine and wound. Clostridium perfringens also found in the wound. 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 Her wound is stable. It is slightly smaller from previous. Unfortunately does still track quite deep. I believe that because of her diarrhea and loose stools she is getting stool soilage into the wound now through the fistula. C diff was negative. White blood cell count is not normal, however she has always had a slightly elevated blood count, even prior to this episode. She has not had any fevers. No signs of worsening infection. Therefore I recommend we stop antibiotics and she has completed her 2 week course. If she worsens we will have to reassess, possibly repeat CT scan. -stopping antibiotics should hopefully help with her loose stools and help keep the wound clean. Can also add Imodium if needed. -I have recommended that in addition to b.i.d. dressing changes that the nurses rinse the wound with a vashe dwell. -unclear cause for left flank redness. Apparently this has improved. Will continue to monitor.
--- NOTE | 2023-09-11 14:10 | P.IMPN_ITS ---
Progress Note: A&P Assessment and plan (1) Acute on chronic respiratory failure with hypoxia and hypercapnia: Problem details: - VBG 08/29/2023: pH 7.23, pCO2 82, pO2 50, HCO3- 34. Bicarb on her chemistries remains elevated consistent with chronic CO2 retention. - metabolic encephalopathy, improved with BIPap. Meets qualification criteria for ongoing BiPAP therapy hereafter. Will need to make arrangements for outpatient/home BiPAP at discharge Patient has hypoxia while awake on room air. May have some central apnea. Because she retained CO2, supplemental oxygen without BiPAP is inappropriate. 09/08/2023: Having some increased hypoxia. Trial of furosemide to see if this will respond. Also note potential for eosinophilic pneumonia related to daptomycin. 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 q.8 hours, daptomycin (empiric coverage for enterococcus) 500 mg IV Q 24 hours. If found to be soft tissue infection, continue antibiotics for 2 weeks from most recent I&D. If osteomyelitis etiology, Infectious Disease service requests follow-up for further recommendations. 09/05: Based on cultures, this is a soft tissue infection, not a bone infection, continue current course of antibiotics for total of 14 days. Has a PICC in place -wound care recommendations per General Surgery (see Dr. Gallegos's note) -pain management to include scheduled Tylenol, p.r.n. Vistaril, ketorolac (1 time dose prn). Continue home gabapentin and prn oxycodone -MINIMIZE NARCOTICS WITH HISTORY OF PARALYZED VOCAL CORD, DIFFICULT INTUBATION/EXTUBATION -encourage postoperative pulmonary hygiene, aerobika, pulse oximetry with narcotics On September 11 Patient will complete 2 weeks of IV daptomycin and metronidazole to treat Enterococcus faecalis in urine and wound. Clostridium perfringens also found in the wound. Status: Acute (5) Neurogenic bladder: Problem details: -chronic indwelling catheter Status: Chronic (6) Chronic, continuous use of opioids: Problem details: - continue to assess and treat as needed Status: Acute (7) Paraplegia: Problem details: -since age 6; muscle atrophy (chronic) bilaterally Status: Chronic (8) Rash: Problem details: Area of erythema on left flank. Stable over the last 2 days. Modestly improving. Continue to monitor. May be fixed drug eruption. Discontinuing antibiotics today Status: Acute (9) CO2 retention: Problem details: Patient has severe CO2 retention. Cannot receive supplemental oxygen without BiPAP. She does have hypoxia without dyspnea when she is awake on room air Status: Acute Plan Continue in-hospital pending appropriate discharge plan to [facility] for ongoing wound care and management of hypoxic and ventilatory respiratory failure. Time Spent With Patient Total time spent: Total time spent today is 35 minutes, 25 minutes in coordination of care discussed with patient other providers ongoing management of wounds and respiratory failure and disposition Subjective Date Seen: 09/11/23 Interval history: Prerna Major is a 77 year old female paraplegic since childhood, neurogenic bladder with chronic indwelling Cristobal catheter, rheumatoid arthritis on chronic steroid, acute on chronic anemia, lower extremity edema on Lasix, PUD, chronic pressure ulcers is admitted to the CCU from the OR after emergent surgery taken from the ED for further management. Patient was seen in the ED for rectal pain x1 week with inability to have a bowel movement. Was seen by the wound care nurse today (who manages her wound VAC) with concerns for perirectal wound that is leaking some fluid and blood. Has been constipated, 3-4 bowel movements per week. Reports chills without measured fever, increased shortness of breath. Has a history of vocal cord paralysis. Reports upper abdominal fullness, mild nausea, no vomiting. She was taken to the operating room by Dr. Gallegos where she had debridement of a perianal abscess with seton placement. At that time she also had culture and biopsy of the bone done. Subsequent cultures have grown out Enterococcus faecalis from her wound and her urine and also Clostridium perfringens from her wound. She has a penicillin allergy and has been treated with daptomycin and oral metronidazole. Bone culture was negative so the plan of treatment was 2 weeks for her soft tissue infection. Initially started on ertapenem and now on daptomycin day 6. She has not had any further fevers. She has had hypoxic and hypercarbic respiratory failure. This is thought to be acute on chronic. She has long-time been suspected to have sleep apnea. Evaluation here shows ventilatory failure at night and she is now transition to BiPAP use when she is sleeping. This seems to be working fairly well for her. She is mildly hypoxic while she is awake during the day with O2 sats in the upper 80s. Mary has no new concerns today. She still having some perianal pain. She has been eating normally. She is not feeling short of breath but her O2 sats are often in the low 80s on room air when she is awake. She is using BiPAP at night which is working well for her. Exam Narrative: Exam Narrative: Examination of buttock wounds today with Dr. Gallegos. She has similar appearing abscess and per Dr. Mccoy similar size. Surrounding skin appears to be generally healthy. Also examination of the left flank where she had erythema seems to be fading a little bit. Const: Vital Signs, click to edit/add: Vital Signs - 24 hr 09/10/23 14:12 09/10/23 15:00 09/10/23 15:00 Temperature 97.8 F 98.1 F Pulse Rate [Pulse Oximeter] 85 85 85 Respiratory Rate 16 18 18 Blood Pressure [ri ght forearm] 124/57 L 121/74 Pulse Oximetry 92 91 Oxygen Delivery Me thod Room Air Room Air 09/10/23 15:00 09/10/23 19:00 09/10/23 23:00 Temperature 98.3 F Pulse Rate [Pulse Oximeter] 97 80 Respiratory Rate 18 20 Blood Pressure [ri ght forearm] 143/75 H Pulse Oximetry 91 95 Oxygen Delivery Me thod Room Air Room Air 09/10/23 23:00 09/10/23 23:00 09/11/23 03:00 Temperature 97 F L 97.6 F Pulse Rate [Pulse Oximeter] 80 75 Respiratory Rate 20 20 12 Blood Pressure [ri ght forearm] 108/58 L 112/65 Pulse Oximetry 94 94 96 Oxygen Delivery Me thod BiPAP BiPAP BiPAP 09/11/23 07:00 09/11/23 08:39 Temperature 98 F Pulse Rate [Pulse Oximeter] 94 Respiratory Rate 16 18 Blood Pressure [ri ght forearm] 146/50 H Pulse Oximetry 88 91 Oxygen Delivery Me thod Room Air Room Air Documenting provider has reviewed patient's vital signs: yes
[2023-09-11] MEDS: DAPTOmycin 50 MG/ML inj 500 MG IVP (14:54)
[2023-09-11] MEDS: LOPERAMIDE HCL 2 MG CAPSULE PO (14:57)
[2023-09-11 15:00] VITALS: BP 125/82; PULSE 84; RESP 18; TEMP 36.5; O2SAT 92; O2SAT 94
[2023-09-11 15:11] VITALS: BP 121/63; PULSE 97; RESP 18; TEMP 36.8; O2SAT 94
--- NOTE | 2023-09-11 16:02 | PC.SOCIAL ---
Discharge planning: survey workers supervisor heard back from [facility], [facility] in [place] and [facility] in [place] today. All three facilities are declining the pt due to level of care needed. survey workers supervisor faxed referral packet for pt to [facility] in [place] and [facility] in [place] for review. survey workers supervisor left another message and sent an email to pt's daughter asking for a call back to discuss updates with pt's discharge planning thus far. survey workers supervisor also consulted with Dr. Kline after he saw the pt today and he confirmed that pt is ready for discharge tomorrow(Friday). Social work to follow-up as needed.
--- NOTE | 2023-09-11 19:49 | PC.NURSE ---
shift note: vss stable. pt medicated x2 with oxycodone for pain control. LS clr. pt on RA average sats 92%. Perirectal drsg done by Dr. Gallegos. Wound bed beefy red. site had moderate drainage on drsg brownish in color. wound vac in place with no drainage from previous in container. container @ 150cc. redness to rt lower flank area resolving. groin slightly red. delacruz patent. picc site c/d/i
[2023-09-11] MEDS: ENOXAPARIN 40 MG/0.4 ML INJ SUBCUT (20:45)
[2023-09-11 23:00] VITALS: BP 112/72; PULSE 78; RESP 20; TEMP 36.2; O2SAT 91
[2023-09-12] MEDS: ACETAMINOPHEN 325 MG TABLET 650 MG PO ×4 (02:36→20:47)
--- NOTE | 2023-09-12 06:58 | PC.NURSE ---
Shift note [id number]: Dressing change to perirectal wound completed?per order twice this shift due to previous dressing becoming soiled with stool. Pt noted to be alert & oriented x 4. Sacral border dressing noted to be clean, dry and intact. PRN Oxycodone administered to pre-medicate before wound care completed last evening. Pt on Bipap at HS with O2 sat of 91% and R of 20. Pt noted to have one large loose stool last evening and has had three smears of incontinent loose stool this morning though declined PRN Loperamide when offered. Pt is not ambulating and currently transferring with ceiling lift when getting in and out of bed. PICC in place to [facility] with dressing noted to be C/D/I. Pt repositioned and checked and changed Q2H. Cristobal catheter remains patent and in place. No c/o CP, shortness of breath or N/V noted throughout the shift.
[2023-09-12 07:00] VITALS: BP 163/65; PULSE 100; RESP 20; TEMP 36.8; O2SAT 90
[2023-09-12] MEDS: FUROSEMIDE 40 MG TABLET PO (07:55)
[2023-09-12] MEDS: LACTOBACILLUS ACIDOPHILUS 1 TABLET 2 TAB PO ×3 (07:55→17:33)
[2023-09-12] MEDS: POTASSIUM CHLORIDE 10 MEQ CAPSULE ER 20 MEQ PO ×2 (07:55→17:33)
[2023-09-12] MEDS: NYSTATIN POWDER 1 APPLIC TOPICAL ×2 (08:58→20:49)
[2023-09-12] MEDS: predniSONE 5 MG TABLET 10 MG PO (08:58)
[2023-09-12] MEDS: OXYCODONE 5 MG TABLET PO ×2 (08:58→14:09)
[2023-09-12] MEDS: GABAPENTIN 300 MG CAPSULE PO ×3 (08:59→20:47)
[2023-09-12] MEDS: METOPROLOL TARTRATE 25 MG TABLET PO ×2 (08:59→20:48)
[2023-09-12] MEDS: OMEPRAZOLE 20 MG CAPSULE DR PO ×2 (08:59→20:48)
[2023-09-12] MEDS: SODIUM CHLORIDE 0.9 % (FLUSH) 10 ML SYRINGE 5 ML IVF ×2 (09:02→20:49)
[2023-09-12] MEDS: LOPERAMIDE HCL 2 MG CAPSULE PO ×2 (14:04→17:33)
--- NOTE | 2023-09-12 14:46 | PC.SOCIAL ---
Discharge planning: The child development instructor from [facility] came to assess pt today. They can accept pt into their facility and will request the prior authorization from [facility] Medicare insurance. As of 3:45pm this social media sr strategy manager had not heard back from [facility] on whether or not they had heard from [facility] Medicare. This social media sr strategy manager informed the pt and pt's daughter on the status of the [facility] Medicare prior authorization and that she would most likely not be discharging today(Friday). [facility] did say that they could possibly take the pt over the weekend if the prior authorization gets approved. workers' compensation mediator completed the pre-admission screening for pt. PAS#[id number] and sent the number to [facility]. A prescription for pt's Bi-pap was also faxed over to [facility] so the facility can get that in place for the pt when she arrives. workers' compensation mediator completed the Family Development Specialist Discharge Sheet and gave the pt a copy of the Important Message from Medicare document. Pt's daughter stated that family should be able to transfer pt from the hospital to [facility] when ready. Social work to follow-up as needed.
[2023-09-12 15:00] VITALS: BP 163/65; PULSE 100; RESP 20; TEMP 36.4; O2SAT 88
--- NOTE | 2023-09-12 15:42 | P.IMPN_ITS ---
Progress Note: A&P Assessment and plan (1) Acute on chronic respiratory failure with hypoxia and hypercapnia: Problem details: - VBG 08/29/2023: pH 7.23, pCO2 82, pO2 50, HCO3- 34. Bicarb on her chemistries remains elevated consistent with chronic CO2 retention. - metabolic encephalopathy, improved with BIPap. Meets qualification criteria for ongoing BiPAP therapy hereafter. Will need to make arrangements for outpatient/home BiPAP at discharge. Will need BiPAP for long-term use. If hyp oxia needs BiPAP not supplemental oxygen alone. Patient has hypoxia while awake on room air. May have some central apnea. Because she retained CO2, supplemental oxygen without BiPAP is inappropriate. 09/08/2023: Having some increased hypoxia. Trial of furosemide to see if this will respond. Also note potential for eosinophilic pneumonia related to daptomycin. 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 q.8 hours, daptomycin (empiric coverage for enterococcus) 500 mg IV Q 24 hours. If found to be soft tissue infection, continue antibiotics for 2 weeks from most recent I&D. If osteomyelitis etiology, Infectious Disease service requests follow-up for further recommendations. 09/05: Based on cultures, this is a soft tissue infection, not a bone infection, continue current course of antibiotics for total of 14 days. Has a PICC in place -wound care recommendations per General Surgery (see Dr. Gallegos's note) -pain management to include scheduled Tylenol, p.r.n. Vistaril, ketorolac (1 time dose prn). Continue home gabapentin and prn oxycodone -MINIMIZE NARCOTICS WITH HISTORY OF PARALYZED VOCAL CORD, DIFFICULT INTUBATION/EXTUBATION -encourage postoperative pulmonary hygiene, aerobika, pulse oximetry with narcotics Off systemic antibiotics Status: Acute (5) Neurogenic bladder: Problem details: -chronic indwelling catheter Status: Chronic (6) Chronic, continuous use of opioids: Problem details: - continue to assess and treat as needed Status: Acute (7) Paraplegia: Problem details: -since age 6; muscle atrophy (chronic) bilaterally Status: Chronic (8) Rash: Problem details: Area of erythema and edema on left flank. Improved over the last 2 days. Continue to monitor. Status: Acute (9) CO2 retention: Problem details: Patient has severe CO2 retention. Cannot receive supplemental oxygen without BiPAP. She does have hypoxia without dyspnea when she is awake on room air Status: Acute Plan Continue in hospital pending safe discharge to [facility] facility for wound care, BiPAP. Time Spent With Patient Total time spent: Total time spent today is 40 minutes, 30 minutes in coordination of care and discussing with patient other providers ongoing evaluation and management of ulcers, rash and disposition Subjective Date Seen: 09/12/23 Interval history: Prerna Major is a 77 year old female paraplegic since childhood, neurogenic bladder with chronic indwelling Cristobal catheter, rheumatoid arthritis on chronic steroid, acute on chronic anemia, lower extremity edema on Lasix, PUD, chronic pressure ulcers is admitted to the CCU from the OR after emergent surgery taken from the ED for further management. Patient was seen in the ED for rectal pain x1 week with inability to have a bowel movement. Was seen by the wound care nurse today (who manages her wound VAC) with concerns for perirectal wound that is leaking some fluid and blood. Has been constipated, 3-4 bowel movements per week. Reports chills without m easured fever, increased shortness of breath. Has a history of vocal cord paralysis. Reports upper abdominal fullness, mild nausea, no vomiting. She was taken to the operating room by Dr. Gallegos where she had debridement of a perianal abscess with seton placement. At that time she also had culture and biopsy of the bone done. Subsequent cultures have grown out Enterococcus faecalis from her wound and her urine and also Clostridium perfringens from her wound. She has a penicillin allergy and has been treated with daptomycin and oral metronidazole. Bone culture was negative so the plan of treatment was 2 weeks for her soft tissue infection. Initially started on ertapenem and now on daptomycin day 6. She has not had any further fevers. She has had hypoxic and hypercarbic respiratory failure. This is thought to be acute on chronic. She has long-time been suspected to have sleep apnea. Evaluation here shows ventilatory failure at night and she is now transition to BiPAP use when she is sleeping. This seems to be working fairly well for her. She is mildly hypoxic while she is awake during the day with O2 sats in the upper 80s. Mary has no new concerns today. She still having some perianal pain. She has been eating normally. She is not feeling short of breath but her O2 sats are often in the low 80s on room air when she is awake. She is using BiPAP at night which is working well for her. She is still having loose stools despite p.r.n. Imodium. Scheduled Imodium to help with loose stools and wound healing on her buttock. Exam Narrative: Exam Narrative: She is alert pleasant and in no distress. Respirations are clear to auscultation. Cardiovascular: S1, S2, regular rate and rhythm. Abdomen: Bowel sounds active. Abdomen is soft without tenderness or mass. Left flank and still has some erythema and edema but this is significantly improved over the last few days. Const: Vital Signs, click to edit/add: Vital Signs - 24 hr 09/11/23 17:50 09/11/23 23:00 09/11/23 23:00 Temperature 97.1 F L Pulse Rate [Pulse Oximeter] 78 Respiratory Rate 20 20 Blood Pressure [ri ght forearm] 112/72 Pulse Oximetry 91 91 Oxygen Delivery Me thod BiPAP BiPAP Fraction of Inspir ed Oxygen 0.21 21 09/12/23 07:00 09/12/23 07:00 09/12/23 07:00 Temperature 98.3 F Pulse Rate [Pulse Oximeter] 100 100 Respiratory Rate 20 20 Blood Pressure [ri ght forearm] 163/65 H Pulse Oximetry 90 90 Oxygen Delivery Me thod Room Air Room Air Fraction of Inspir ed Oxygen 09/12/23 14:39 Temperature Pulse Rate [Pulse Oximeter] Respiratory Rate Blood Pressure [ri ght forearm] Pulse Oximetry Oxygen Delivery Me thod Fraction of Inspir ed Oxygen 21 Documenting provider has reviewed patient's vital signs: yes
--- NOTE | 2023-09-12 19:11 | PC.NURSE ---
End of shift note: patient cooperative with cares. 0.5 L for sats at 85%. Patient stated she was not feeling SOB however. PICC dressing changed. Dressing to coccyx changed. patient had a small loose Bm.
[2023-09-12] MEDS: ENOXAPARIN 40 MG/0.4 ML INJ SUBCUT (20:47)
[2023-09-12 22:37] VITALS: BP 129/69; PULSE 93; RESP 16; TEMP 36.1; O2SAT 91
[2023-09-12 22:39] VITALS: RESP 16; O2SAT 91
[2023-09-13] MEDS: ACETAMINOPHEN 325 MG TABLET 650 MG PO ×4 (03:20→22:03)
--- NOTE | 2023-09-13 06:37 | PC.NURSE ---
Shift note [id number]: Pt remains alert & oriented x 4 and able to make needs known. Wound vac dressing to R buttock noted to be clean, dry and intact. Bipap worn with O2 sat of 91%. Staff reposition and check and change brief Q2H. SCDs worn to bilateral lower extremities. PICC remains in place to RUE and patent with dressing noted to be C/D/I. Dressing change to R buttock completed- moderate amount of bloody drainage noted when old packing removed from wound. No odor noted to wound. Pt continues to be incontinent of stool at times though stool noted to be soft in consistency. Cristobal catheter remains in place. Pt requires ceiling lift when transferring in and out of bed though has been in bed this shift. Pt has slept well throughout the night with no c/o pain. VSS and pt has been afebrile. ?
[2023-09-13 07:00] VITALS: BP 153/80; PULSE 100; RESP 16; TEMP 37.7; O2SAT 90
[2023-09-13] MEDS: POTASSIUM CHLORIDE 10 MEQ CAPSULE ER 20 MEQ PO ×2 (08:12→17:43)
[2023-09-13] MEDS: FUROSEMIDE 40 MG TABLET PO (08:12)
[2023-09-13] MEDS: LACTOBACILLUS ACIDOPHILUS 1 TABLET 2 TAB PO ×3 (08:12→17:43)
[2023-09-13] MEDS: LOPERAMIDE HCL 2 MG CAPSULE PO ×3 (08:12→17:43)
[2023-09-13] MEDS: OXYCODONE 5 MG TABLET PO ×3 (08:23→22:05)
[2023-09-13] MEDS: OMEPRAZOLE 20 MG CAPSULE DR PO ×2 (08:23→22:05)
[2023-09-13] MEDS: predniSONE 5 MG TABLET 10 MG PO (08:24)
[2023-09-13] MEDS: METOPROLOL TARTRATE 25 MG TABLET PO ×2 (08:24→22:05)
[2023-09-13] MEDS: GABAPENTIN 300 MG CAPSULE PO ×3 (08:24→22:05)
[2023-09-13] MEDS: NYSTATIN POWDER 1 APPLIC TOPICAL ×2 (08:25→22:07)
[2023-09-13 14:24] VITALS: PULSE 100; RESP 16
--- NOTE | 2023-09-13 14:35 | P.IMPN_ITS ---
Progress Note: A&P Assessment and plan (1) Acute on chronic respiratory failure with hypoxia and hypercapnia: Problem details: - VBG 08/29/2023: pH 7.23, pCO2 82, pO2 50, HCO3- 34. Bicarb on her chemistries remains elevated consistent with chronic CO2 retention. - metabolic encephalopathy, improved with BIPap. Meets qualification criteria for ongoing BiPAP therapy hereafter. Will need to make arrangements for outpatient/home BiPAP at discharge. Will need BiPAP for long-term use. If hyp oxia needs BiPAP not supplemental oxygen alone. Patient has hypoxia while awake on room air. May have some central apnea. Because she retained CO2, supplemental oxygen without BiPAP is inappropriate. 09/08/2023: Having some increased hypoxia. Trial of furosemide to see if this will respond. Also note potential for eosinophilic pneumonia related to daptomycin. 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 q.8 hours, daptomycin (empiric coverage for enterococcus) 500 mg IV Q 24 hours. If found to be soft tissue infection, continue antibiotics for 2 weeks from most recent I&D. If osteomyelitis etiology, Infectious Disease service requests follow-up for further recommendations. 09/05: Based on cultures, this is a soft tissue infection, not a bone infection, continue current course of antibiotics for total of 14 days. Has a PICC in place -wound care recommendations per General Surgery (see Dr. Gallegos's note) -pain management to include scheduled Tylenol, p.r.n. Vistaril, ketorolac (1 time dose prn). Continue home gabapentin and prn oxycodone -MINIMIZE NARCOTICS WITH HISTORY OF PARALYZED VOCAL CORD, DIFFICULT INTUBATION/EXTUBATION -encourage postoperative pulmonary hygiene, aerobika, pulse oximetry with narcotics Off systemic antibiotics Status: Acute (5) Neurogenic bladder: Problem details: -chronic indwelling catheter Status: Chronic (6) Chronic, continuous use of opioids: Problem details: - continue to assess and treat as needed Status: Acute (7) Paraplegia: Problem details: -since age 6; muscle atrophy (chronic) bilaterally Status: Chronic (8) CO2 retention: Problem details: Patient has severe CO2 retention. Cannot receive supplemental oxygen without BiPAP. She does have hypoxia without dyspnea when she is awake on room air Status: Acute Subjective Date Seen: 09/13/23 Interval history: Daily Progress Note - Hospital Medicine #: 17 CC: Chronic respiratory failure dependent on BiPAP, chronic osteomyelitis with wound VAC/wound care OVERNIGHT UPDATES FROM STAFF & MED, LAB, IMAGING UPDATES Stable night. No new changes. Awaiting long-term care placement. I have reviewed my colleague's comprehensive review: Prenra Major is a 77 year old female paraplegic since childhood, neurogenic bladder with chronic indwelling Cristobal catheter, rheumatoid arthritis on chronic steroid, acute on chronic anemia, lower extremity edema on Lasix, PUD, chronic pressure ulcers is admitted to the CCU from the OR after emergent surgery taken from the ED for further management. -Patient was seen in the ED for rectal pain x1 week with inability to have a bowel movement. Was seen by the wound care nurse today (who manages her wound VAC) with concerns for perirectal wound that is leaking some fluid and blood. -She was taken to the operating room by Dr. Gallegos where she had debridement of a perianal abscess with seton placement. At that time she also had culture and biopsy of the bone done. -Subsequent cultures have grown out Enterococcus faecalis from her wound and her urine and also Clostridium perfringens from her wound. She has a penicillin allergy and has been treated with daptomycin and oral metronidazole. Bone culture was negative so the plan of treatment was 2 weeks for her soft tissue infection. Initially started on ertapenem and now on daptomycin day 6. She has not had any further fevers. -Has a history of vocal cord paralysis. Reports upper abdominal fullness, mild nausea, no vomiting. -She has had hypoxic and hypercarbic respiratory failure. This is thought to be acute on chronic. She has long-time been suspected to have sleep apnea. Evaluation here shows ventilatory failure at night and she is now transition to BiPAP use when she is sleeping. This seems to be working fairly well for her. She is mildly hypoxic while she is awake during the day with O2 sats in the upper 80s. She is still having loose stools despite p.r.n. Imodium. Scheduled Imodium to help with loose stools and wound healing on her buttock. 153/80. Pulse 100. Rest per 16. Afebrile, technically. Temp 100? but has typically been afebrile. Respiratory rate 20. Pulse ox mid 80s to low 90s. 59 kilos. No new CBC since 09/10 No new blood gas since 09/04 No new chemistries since 09/10 C diff negative Negative for MRSA screen I reviewed cultures from from her wounds Negative blood cultures Objective: sleeping without distress Vitals: see above Lungs: Clear. Cardiac: S1S2. wounds not evaluated. Disposition/Potential discharge - [facility] placement [facility] care Today I spent 50minutes seeing the patient, reviewing Expanse and EPIC notes/diagnostics, discussing the care plan with our care time that includes social work, PT/OT, pharmacy, RT, retirement and documenting my impressions and plan in the medical record. Exam Const: Vital Signs, click to edit/add: Vital Signs - 24 hr 09/12/23 14:39 09/12/23 15:00 09/12/23 15:00 Temperature Pulse Rate [Pulse Oximeter] 100 Respiratory Rate 20 20 Blood Pressure [ri ght forearm] Pulse Oximetry 88 Oxygen Delivery Me thod Room Air Oxygen Flow Rate 0.5 Fraction of Inspir ed Oxygen 21 21 09/12/23 15:00 09/12/23 22:37 09/12/23 22:39 Temperature 97.6 F 96.9 F L Pulse Rate [Pulse Oximeter] 100 93 Respiratory Rate 20 16 16 Blood Pressure [ri ght forearm] 163/65 H 129/69 Pulse Oximetry 88 91 91 Oxygen Delivery Me thod Room Air Nasal Cannula Nasal Cannula Oxygen Flow Rate 0.5 0.5 0.5 Fraction of Inspir ed Oxygen 21 09/13/23 07:00 09/13/23 07:00 09/13/23 07:00 Temperature 100 F H Pulse Rate [Pulse Oximeter] 100 100 Respiratory Rate 16 16 16 Blood Pressure [ri ght forearm] 153/80 H Pulse Oximetry 90 90 Oxygen Delivery Me thod Room Air Room Air Oxygen Flow Rate Fraction of Inspir ed Oxygen 09/13/23 13:45 09/13/23 14:24 Temperature Pulse Rate [Pulse Oximeter] 100 Respiratory Rate 16 Blood Pressure [ri ght forearm] Pulse Oximetry Oxygen Delivery Me thod Oxygen Flow Rate Fraction of Inspir ed Oxygen 21
[2023-09-13 15:00] VITALS: BP 134/67; PULSE 97; RESP 16; TEMP 36.9; O2SAT 90
--- NOTE | 2023-09-13 18:17 | PC.NURSE ---
Patient alert and oriented, PRN oxy for pain administered x2. Premedicated prior to wound vac dressing change and dressing to tailbone. Patient tolerated dressing change well. VSS. patient maintaining 90% on RA. delacruz patent and draining clear, yellow urine. PICC line patent and SL. Patient tolerating reg. diet. Patient had a soft large BM today.
[2023-09-13] MEDS: ENOXAPARIN 40 MG/0.4 ML INJ SUBCUT (22:03)
[2023-09-13] MEDS: SODIUM CHLORIDE 0.9 % (FLUSH) 10 ML SYRINGE 5 ML IVF (22:07)
[2023-09-13 22:11] VITALS: BP 139/86; PULSE 93; RESP 18; TEMP 36.1; O2SAT 90
[2023-09-13 23:00] VITALS: RESP 18; O2SAT 90
[2023-09-14] MEDS: ACETAMINOPHEN 325 MG TABLET 650 MG PO ×4 (03:58→21:09)
--- NOTE | 2023-09-14 04:47 | PC.NURSE ---
Addendum entered by Margaret Guajardo RN 09/14/23 07:09: Patient noted to have 100mL urine in delacruz. Checked for kinks and advanced, draining urine. Will report to oncoming nurse. Original Note: [id number]: Patient pleasant and cooperative. PICC, wound vac, and Delacruz all patent. Wound change to R. buttock region x1 per protocol. Patient tolerated well. PRN Oxycodone x1 for 7/10 sacral/R.leg pain. BiPAP on during noc. Frequent T&R.
[2023-09-14 07:00] VITALS: BP 135/57; PULSE 100; RESP 18; TEMP 37.5; O2SAT 88; O2SAT 90
--- NOTE | 2023-09-14 07:21 | PM.IMPN1 ---
Progress Note: A&P Assessment and plan (1) Acute on chronic respiratory failure with hypoxia and hypercapnia: Problem details: -09/14 encephalopathy improved. BiPAP dependence while asleep continues. -supplemental oxygen is inappropriate in this setting. PO2 levels 88-90 are acceptable and are goal. - VBG 08/29/2023: pH 7.23, pCO2 82, pO2 50, HCO3- 34. Bicarb on her chemistries remains elevated consistent with chronic CO2 retention. - metabolic encephalopathy, improved with BIPap. Meets qualification criteria for ongoing BiPAP therapy hereafter. Status: Acute (2) Chronic steroid use: Problem details: -for RA, continue usual dose of prednisone 10 po daily Status: Acute (3) Decubitus ulcers: Problem details: - s/p debridement 08/28/23 - twice daily dressing changes to deeper wound - Wound Vac Status: Acute (4) Aure-rectal abscess: Problem details: -Status post Incision and drainage right perianal abscess with seton placement, Bone biopsy chronic right ischial tuberosity wound 08/28/2023 -wound cultures: Results and sensitivities as noted in HPI -Infectious Disease consulted recommending ceftriaxone IV 2 g Q 24 hours, Flagyl 500 mg p.o. q.8 hours, daptomycin (empiric coverage for enterococcus) 500 mg IV Q 24 hours. If found to be soft tissue infection, continue antibiotics for 2 weeks from most recent I&D. If osteomyelitis etiology, Infectious Disease service requests follow-up for further recommendations. 09/05: Based on cultures, this is a soft tissue infection, not a bone infection, continue current course of antibiotics for total of 14 days. Has a PICC in place -wound care recommendations per General Surgery (see Dr. Gallegos's note) -pain management to include scheduled Tylenol, p.r.n. Vistaril, ketorolac (1 time dose prn). Continue home gabapentin and prn oxycodone -MINIMIZE NARCOTICS WITH HISTORY OF PARALYZED VOCAL CORD, DIFFICULT INTUBATION/EXTUBATION -encourage postoperative pulmonary hygiene, aerobika, pulse oximetry with narcotics Off systemic antibiotics Status: Acute (5) Neurogenic bladder: Problem details: -chronic indwelling catheter Status: Chronic (6) Chronic, continuous use of opioids: Problem details: - continue to assess and treat as needed Status: Acute (7) Paraplegia: Problem details: -since age 6; muscle atrophy (chronic) bilaterally Status: Chronic (8) CO2 retention: Problem details: Patient has severe CO2 retention. Cannot receive supplemental oxygen without BiPAP. She does have hypoxia without dyspnea when she is awake on room air Status: Acute (9) Diarrhea: Problem details: C diff test negative. Scheduled imodium and added cholestyramine on 09/14 Status: Acute Subjective Date Seen: 09/14/23 Interval history: Daily Progress Note - Hospital Medicine #: 18 CC: Chronic respiratory failure dependent on BiPAP, chronic osteomyelitis with wound VAC/wound care OVERNIGHT UPDATES FROM STAFF & MED, LAB, IMAGING UPDATES pleasant. no complaints. feels improved. awaiting placement. RN Note [id number]: Patient pleasant and cooperative. PICC, wound vac, and Cristobal all patent. Wound change to R. buttock region x1 per protocol. Patient tolerated well. PRN Oxycodone x1 for 7/10 sacral/R.leg pain. BiPAP on during noc. Frequent T&R. Prerna Mjaor is a 77 year old female paraplegic since childhood, neurogenic bladder with chronic indwelling Cristobal catheter, rheumatoid arthritis on chronic steroid, acute on chronic anemia, lower extremity edema on Lasix, PUD, chronic pressure ulcers is admitted to the CCU from the OR after emergent surgery taken from the ED for further management. -Patient was seen in the ED for rectal pain x1 week with inability to have a bowel movement. Was seen by the wound care nurse today (who manages her wound VAC) with concerns for perirectal wound that is leaking some fluid and blood. -She was taken to the operating room by Dr. Gallegos where she had debridement of a perianal abscess with seton placement. At that time she also had culture and biopsy of the bone done. -Subsequent cultures have grown out Enterococcus faecalis from her wound and her urine and also Clostridium perfringens from her wound. She has a penicillin allergy and has been treated with daptomycin and oral metronidazole. Bone culture was negative so the plan of treatment was 2 weeks for her soft tissue infection. Initially started on ertapenem and now on daptomycin day 6. She has not had any further fevers. -Has a history of vocal cord paralysis. Reports upper abdominal fullness, mild nausea, no vomiting. -She has had hypoxic and hypercarbic respiratory failure. This is thought to be acute on chronic. She has long-time been suspected to have sleep apnea. Evaluation here shows ventilatory failure at night and she is now transition to BiPAP use when she is sleeping. This seems to be working fairly well for her. She is mildly hypoxic while she is awake during the day with O2 sats in the upper 80s. She is still having loose stools despite p.r.n. Imodium. Scheduled Imodium to help with loose stools and wound healing on her buttock. 153/80. Pulse 100. Rest per 16. Afebrile, technically. Temp 100? but has typically been afebrile. Respiratory rate 20. Pulse ox mid 80s to low 90s. 59 kilos. No new CBC since 09/10 No new blood gas since 09/04 No new chemistries since 09/10 C diff negative Negative for MRSA screen I reviewed cultures from from her wounds Negative blood cultures Objective: awake. alert. Vitals: see above Lungs: Clear. Cardiac: S1S2. wounds not evaluated. Disposition/Potential discharge - awaiting placement for supervisor intermediates care Today I spent 50minutes seeing the patient, reviewing Expanse and [facility] notes/diagnostics, discussing the care plan with our care time that includes social work, PT/OT, pharmacy, RT, fci and documenting my impressions and plan in the medical record. Exam Const: Vital Signs, click to edit/add: Vital Signs - 24 hr 09/13/23 13:45 09/13/23 14:24 09/13/23 15:00 Temperature Pulse Rate [Pulse Oximeter] 100 Respiratory Rate 16 16 Blood Pressure [ri ght forearm] Pulse Oximetry 90 Oxygen Delivery Me thod Room Air Oxygen Flow Rate 0.5 Fraction of Inspir ed Oxygen 21 21 09/13/23 15:00 09/13/23 22:11 09/13/23 23:00 Temperature 98.5 F 96.9 F L Pulse Rate [Pulse Oximeter] 97 93 Respiratory Rate 16 18 18 Blood Pressure [ri ght forearm] 134/67 139/86 Pulse Oximetry 90 90 90 Oxygen Delivery Me thod Room Air Room Air Room Air Oxygen Flow Rate 0.5 Fraction of Inspir ed Oxygen 21
[2023-09-14] MEDS: POTASSIUM CHLORIDE 10 MEQ CAPSULE ER 20 MEQ PO ×2 (09:27→17:27)
[2023-09-14] MEDS: FUROSEMIDE 40 MG TABLET PO (09:27)
[2023-09-14] MEDS: OMEPRAZOLE 20 MG CAPSULE DR PO ×2 (09:28→21:09)
[2023-09-14] MEDS: METOPROLOL TARTRATE 25 MG TABLET PO ×2 (09:28→21:10)
[2023-09-14] MEDS: LACTOBACILLUS ACIDOPHILUS 1 TABLET 2 TAB PO ×3 (09:28→17:27)
[2023-09-14] MEDS: GABAPENTIN 300 MG CAPSULE PO ×3 (09:28→21:09)
[2023-09-14] MEDS: LOPERAMIDE HCL 2 MG CAPSULE PO ×3 (09:28→17:27)
[2023-09-14] MEDS: NYSTATIN POWDER 1 APPLIC TOPICAL ×2 (09:29→21:10)
[2023-09-14] MEDS: predniSONE 5 MG TABLET 10 MG PO (09:29)
[2023-09-14] MEDS: SODIUM CHLORIDE 0.9 % (FLUSH) 10 ML SYRINGE 5 ML IVF ×2 (11:06→21:10)
[2023-09-14] MEDS: OXYCODONE 5 MG TABLET PO ×3 (11:06→21:18)
[2023-09-14 15:00] VITALS: BP 113/58; PULSE 90; RESP 18; TEMP 36.4; O2SAT 90
--- NOTE | 2023-09-14 18:53 | PC.NURSE ---
patient alert and oriented, afebrile. 90% on RA. Dressing to tailbone changed x1 at, large BM today. Patient premedicated prior to dressing change. Cristobal intact, patent and draining. VSS, tolerating a reg. diet.
[2023-09-14 21:00] VITALS: BP 143/64; PULSE 102; RESP 18; O2SAT 88
[2023-09-14] MEDS: ENOXAPARIN 40 MG/0.4 ML INJ SUBCUT (21:10)
[2023-09-14 23:00] VITALS: RESP 18; O2SAT 88
--- NOTE | 2023-09-15 06:54 | PC.NURSE ---
19-07: pleasant and cooperative. Calls appropriately. T&R. Wound dressing changed x 1. Mepi to sacrum CDI. Pt having small incont soft stools. New delacruz placed 09/15/23. Pts O2 sat 79% upon initial assessment, remained in the lower 80s despite deep breathing exercises, placed pt on 0.5L via NC from [id number] while watching [employer] game, updated ore charger. Placed BiPAP shortly after. Pt continued BiPAP til end of shift. ?
[2023-09-15] MEDS: LACTOBACILLUS ACIDOPHILUS 1 TABLET 2 TAB PO ×3 (08:34→18:33)
[2023-09-15] MEDS: CHOLESTYRAMINE POWDER 4 GM PO (08:34)
[2023-09-15] MEDS: OMEPRAZOLE 20 MG CAPSULE DR PO ×2 (08:34→22:58)
[2023-09-15] MEDS: POTASSIUM CHLORIDE 10 MEQ CAPSULE ER 20 MEQ PO ×2 (08:34→18:32)
[2023-09-15] MEDS: GABAPENTIN 300 MG CAPSULE PO ×3 (08:34→22:58)
[2023-09-15] MEDS: ACETAMINOPHEN 325 MG TABLET 650 MG PO ×3 (08:35→22:57)
[2023-09-15] MEDS: METOPROLOL TARTRATE 25 MG TABLET PO ×2 (08:35→22:58)
[2023-09-15] MEDS: FUROSEMIDE 40 MG TABLET PO (08:35)
[2023-09-15] MEDS: LOPERAMIDE HCL 2 MG CAPSULE PO ×3 (08:36→18:33)
[2023-09-15] MEDS: NYSTATIN POWDER 1 APPLIC TOPICAL ×2 (08:36→22:58)
[2023-09-15 08:45] VITALS: BP 154/82; PULSE 88; RESP 18; TEMP 36.3; O2SAT 93
[2023-09-15] MEDS: OXYCODONE 5 MG TABLET PO ×3 (08:57→22:58)
[2023-09-15] MEDS: predniSONE 5 MG TABLET 10 MG PO (08:57)
--- NOTE | 2023-09-15 11:05 | RESP.RT ---
Pt is dependent on BIPAP at night. Her tolerance for it is excellent. She should be on it at night and during naps. PT SPO2 should be 85-90%. Do not over oxygenate. If required oxygen is greater than 1-1.5 L, please notify RT and MD.
--- NOTE | 2023-09-15 11:50 | PC.SOCIAL ---
Discharge planning: Received call from MEME Swenson at [facility] stating pt's insurance has denied coverage for facility and appeal could be done by hospital physician today. Spoke with UR who will facilitate this peer to peer review with insurance physician and hospitalist. Met with pt to update her. Pt is hopeful the appeal will get coverage for SNF stay as she feels she has no other options for discharge and can not return home as she needs more care than she has at home. Provided pt with copy of Important Message from Medicare. PT is in agreement with discharge from the hospital if she has a alf arranged at discharge. If insurance continues to deny coverage, pt is interested in possibly paying privately for a stay at [facility]. At pt request, called dtrElvi and updated her on insurance situation. Dtr states this has happened before with pt's insurance denying coverage and she is hopeful it will be overturned. Provided dtr with information on the Senior Linkage Line as she has questions about Medicare coverage versus Medicare advantage plans as this is open enrollment and pt is considering making a change to her insurance. garbage pick up worker to follow up as needed.
--- NOTE | 2023-09-15 12:46 | P.IMPN_ITS ---
Progress Note: A&P Assessment and plan (1) Acute on chronic respiratory failure with hypoxia and hypercapnia: Problem details: -09/14 encephalopathy improved. BiPAP dependence while asleep continues. -supplemental oxygen is inappropriate in this setting. PO2 levels 88-90 are acceptable and are goal. - VBG 08/29/2023: pH 7.23, pCO2 82, pO2 50, HCO3- 34. Bicarb on her chemistries remains elevated consistent with chronic CO2 retention. - metabolic encephalopathy, improved with BIPap. Meets qualification criteria for ongoing BiPAP therapy hereafter. Status: Acute (2) Chronic steroid use: Problem details: -for RA, continue usual dose of prednisone 10 po daily Status: Acute (3) Decubitus ulcers: Problem details: - s/p debridement 08/28/23 - twice daily dressing changes to deeper wound - Wound Vac Status: Acute (4) Aure-rectal abscess: Problem details: -Status post Incision and drainage right perianal abscess with seton placement, Bone biopsy chronic right ischial tuberosity wound 08/28/2023 -wound cultures: Results and sensitivities as noted in HPI -Infectious Disease consulted recommending ceftriaxone IV 2 g Q 24 hours, Flagyl 500 mg p.o. q.8 hours, daptomycin (empiric coverage for enterococcus) 500 mg IV Q 24 hours. If found to be soft tissue infection, continue antibiotics for 2 weeks from most recent I&D. If osteomyelitis etiology, Infectious Disease service requests follow-up for further recommendations. 09/05: Based on cultures, this is a soft tissue infection, not a bone infection, continue current course of antibiotics for total of 14 days. Has a PICC in place -wound care recommendations per General Surgery (see Dr. Gallegos's note) -pain management to include scheduled Tylenol, p.r.n. Vistaril, ketorolac (1 time dose prn). Continue home gabapentin and prn oxycodone -MINIMIZE NARCOTICS WITH HISTORY OF PARALYZED VOCAL CORD, DIFFICULT INTUBATION/EXTUBATION -encourage postoperative pulmonary hygiene, aerobika, pulse oximetry with narcotics Off systemic antibiotics Status: Acute (5) Neurogenic bladder: Problem details: -chronic indwelling catheter Status: Chronic (6) Chronic, continuous use of opioids: Problem details: - continue to assess and treat as needed Status: Acute (7) Paraplegia: Problem details: -since age 6; muscle atrophy (chronic) bilaterally Status: Chronic (8) CO2 retention: Problem details: Patient has severe CO2 retention. Cannot receive supplemental oxygen without BiPAP. She does have hypoxia without dyspnea when she is awake on room air Status: Acute (9) Diarrhea: Problem details: C diff test negative. Scheduled imodium and added cholestyramine on 09/14 Status: Acute Subjective Date Seen: 09/15/23 Interval history: Daily Progress Note - Hospital Medicine #: 19 CC: Chronic respiratory failure dependent on BiPAP, chronic osteomyelitis with wound VAC/wound care OVERNIGHT UPDATES FROM STAFF & MED, LAB, IMAGING UPDATES pleasant. no complaints. feels improved. awaiting placement. RN Note : pleasant and cooperative. Calls appropriately. T&R. Wound dressing changed x 1. Mepi to sacrum CDI. Pt having small incont soft stools. New delacruz placed 09/15/23. Pts O2 sat 79% upon initial assessment, remained in the lower 80s despite deep breathing exercises, placed pt on 0.5L via NC from [id number] while watching [employer] game, updated credit charge authorizer. Placed BiPAP shortly after. Pt continued BiPAP til end of shift. ? Reviewed History: Prerna Major is a 77 year old female paraplegic since childhood, neurogenic bladder with chronic indwelling Delacruz catheter, rheumatoid arthritis on chronic steroid, acute on chronic anemia, lower extremity edema on Lasix, PUD, chronic pressure ulcers is admitted to the CCU from the OR after emergent surgery taken from the ED for further management. -Patient was seen in the ED for rectal pain x1 week with inability to have a bowel movement. Was seen by the wound care nurse today (who manages her wound VAC) with concerns for perirectal wound that is leaking some fluid and blood. -She was taken to the operating room by Dr. Gallegos where she had debridement of a perianal abscess with seton placement. At that time she also had culture and biopsy of the bone done. -Subsequent cultures have grown out Enterococcus faecalis from her wound and her urine and also Clostridium perfringens from her wound. She has a penicillin allergy and has been treated with daptomycin and oral metronidazole. Bone culture was negative so the plan of treatment was 2 weeks for her soft tissue infection. Initially started on ertapenem and completed daptomycin. -Has a history of vocal cord paralysis. -She has had hypoxic and hypercarbic respiratory failure. This is thought to be acute on chronic. She has long-time been suspected to have sleep apnea. Evaluation here shows ventilatory failure at night and she is now transition to BiPAP use when she is sleeping. This seems to be working fairly well for her. She is mildly hypoxic while she is awake during the day with O2 sats in the upper 80s. -She is still having loose stools despite p.r.n. Imodium. Scheduled Imodium to help with loose stools and wound healing on her buttock. No new CBC since 09/10 No new blood gas since 09/04 No new chemistries since 09/10 C diff negative Negative for MRSA screen I reviewed cultures from from her wounds Negative blood cultures Objective: awake. alert. Vitals: see above Lungs: Clear. Cardiac: S1S2. wounds not evaluated. Disposition/Potential discharge - awaiting placement for remote computer terminal operator care Today I spent 50minutes seeing the patient, reviewing Expanse and EPIC notes/diagnostics, discussing the care plan with our care time that includes social work, PT/OT, pharmacy, RT, halfway and documenting my impressions and plan in the medical record. Exam Const: Vital Signs, click to edit/add: Vital Signs - 24 hr 09/14/23 15:00 09/14/23 15:00 09/14/23 15:00 Temperature 97.6 F Pulse Rate [Pulse Oximeter] 90 90 Respiratory Rate 18 18 18 Blood Pressure [ri ght forearm] 113/58 L Pulse Oximetry 90 90 Oxygen Delivery Me thod Room Air Room Air Oxygen Flow Rate Fraction of Inspir ed Oxygen 09/14/23 18:24 09/14/23 21:00 09/14/23 23:00 Temperature Pulse Rate [Pulse Oximeter] 102 H Respiratory Rate 18 18 Blood Pressure [ri ght forearm] 143/64 H Pulse Oximetry 88 Oxygen Delivery Me thod Nasal Cannula Oxygen Flow Rate 0.5 Fraction of Inspir ed Oxygen 21 09/14/23 23:00 09/15/23 08:45 09/15/23 11:05 Temperature 97.3 F L Pulse Rate [Pulse Oximeter] 88 Respiratory Rate 18 18 Blood Pressure [ri ght forearm] 154/82 H Pulse Oximetry 88 93 Oxygen Delivery Me thod Nasal Cannula Room Air Oxygen Flow Rate 0.5 Fraction of Inspir ed Oxygen 21
[2023-09-15] MEDS: SODIUM CHLORIDE 0.9 % (FLUSH) 10 ML SYRINGE 5 ML IVF (12:53)
--- NOTE | 2023-09-15 14:29 | PC.SOCIAL ---
Discharge planning: Spoke [facility] dtr, Elvi, regarding insurance decision after peer to peer review to continue to deny coverage of the usp facility. Per insurance, need could be met at home with additional equipment and hired care at home. Dtr states insurance has refused coverage in the past and the family appealed three times and then it was overturned. Dtr is interested in appealing insurance decision again if possible. Shared with dtr that pt could pat privately at the usp facility while family explored options for setting up assistance at home. [facility] estimated private pay daily rate is $500-$550/day and a $5000 upfront payment is required. Dtr states she is interested in what additional nursing care could be provided at home if pt returns home. Dtr states she will think about options and we can talk after she has discussed this with pt. Met with pt who is also disappointed in insurance decision and interested in appealing the insurance denial for usp coverage. Informed pt of details of private pay option at [facility]. Pt states she may be interested in paying privately at [facility] for a few weeks to give her family time to set up care at home. Pt states she was getting a nurse for wound care three times a week and a bathing aid once a week from [facility]. Called [facility] and spoke with Lu, case management, . Lu states pt can resume home care services with them either after discharge from the hospital or the usp facility. Lu stated that three times a week is typically the maximum skilled home care provided but that pt and family could work with [facility] home care which is the in home nanny care branch of [facility] to arrange for hired in home nanny care as needed. farmworker machine to follow up as needed.
[2023-09-15 15:00] VITALS: RESP 18; O2SAT 87
--- NOTE | 2023-09-15 16:39 | PC.SOCIAL ---
Discharge planning: A new appeal for the insurance denial of fdc has been submitted and decision will be made by insurance in 24-72 hours. Called [facility] who states they will hold the bed until a decision is reached on the appeal. Called daughter, Elvi, who is pleased the appeal has been started and hopes for insruance coverage of the fdc. Dtr requested information on resources and agencies that can assist disabled patients in getting their needs met. Provided her with information on [employer] resource packet, [employer] [place], [employer], [employer] for Casework Manager Care and Vulnerable Adult reporting information. Also suggested a care home care assessment be completed at the fdc to evaluate pt for any home services she may be eligible for. Met with pt who is aware of the new appeal being filed. Pt states that if the insurance will not pay for the fdc on appeal, she will pay privately for a few weeks stay at [facility] while things get set up at home for her to return home. rescue worker to follow up as needed.
[2023-09-15 16:46] VITALS: BP 109/55; PULSE 96; RESP 18; TEMP 36.4; O2SAT 86
--- NOTE | 2023-09-15 19:25 | PC.NURSE ---
shift note: vss stable. pt t&r for comfort. drsg to perianal performed per d.o. moderate amount brownish drainage on kerlex. wound vac in place and outside clr drsg reinforced. sacrum appears red. sacral drsg applied. pt on ra 85-93%. delacruz patent. picc line intact/patent. pt medicated x2 for buttock pain with relief
[2023-09-15] MEDS: ENOXAPARIN 40 MG/0.4 ML INJ SUBCUT (22:57)
[2023-09-15 23:00] VITALS: BP 172/79; PULSE 102; PULSE 113; RESP 18; TEMP 36.9; O2SAT 86; O2SAT 87
[2023-09-16 03:00] VITALS: BP 128/63; PULSE 83; RESP 19; TEMP 36.9; O2SAT 90
--- NOTE | 2023-09-16 06:11 | PC.NURSE ---
Shift note: T&R, pain treated per eMAR with relief and pt is able to rest overnight
--- NOTE | 2023-09-16 07:37 | PM.IMPN1 ---
Progress Note: A&P Assessment and plan (1) Acute on chronic respiratory failure with hypoxia and hypercapnia: Problem details: -09/14 encephalopathy improved. BiPAP dependence while asleep continues. -supplemental oxygen is inappropriate in this setting. PO2 levels 88-90 are acceptable and are goal. - VBG 08/29/2023: pH 7.23, pCO2 82, pO2 50, HCO3- 34. Bicarb on her chemistries remains elevated consistent with chronic CO2 retention. - metabolic encephalopathy, improved with BIPap. Meets qualification criteria for ongoing BiPAP therapy hereafter. Status: Acute (2) Chronic steroid use: Problem details: -for RA, continue usual dose of prednisone 10 po daily Status: Acute (3) Decubitus ulcers: Problem details: - s/p debridement 08/28/23 - twice daily dressing changes to deeper wound - Wound Vac Status: Acute (4) Aure-rectal abscess: Problem details: -Status post Incision and drainage right perianal abscess with seton placement, Bone biopsy chronic right ischial tuberosity wound 08/28/2023 -wound cultures: Results and sensitivities as noted in HPI -Infectious Disease consulted recommending ceftriaxone IV 2 g Q 24 hours, Flagyl 500 mg p.o. q.8 hours, daptomycin (empiric coverage for enterococcus) 500 mg IV Q 24 hours. If found to be soft tissue infection, continue antibiotics for 2 weeks from most recent I&D. If osteomyelitis etiology, Infectious Disease service requests follow-up for further recommendations. 09/05: Based on cultures, this is a soft tissue infection, not a bone infection, continue current course of antibiotics for total of 14 days. Has a PICC in place -wound care recommendations per General Surgery (see Dr. Gallegos's note) -pain management to include scheduled Tylenol, p.r.n. Vistaril, ketorolac (1 time dose prn). Continue home gabapentin and prn oxycodone -MINIMIZE NARCOTICS WITH HISTORY OF PARALYZED VOCAL CORD, DIFFICULT INTUBATION/EXTUBATION -encourage postoperative pulmonary hygiene, aerobika, pulse oximetry with narcotics Off systemic antibiotics Status: Acute (5) Neurogenic bladder: Problem details: -chronic indwelling catheter Status: Chronic (6) Chronic, continuous use of opioids: Problem details: - continue to assess and treat as needed Status: Acute (7) Paraplegia: Problem details: -since age 6; muscle atrophy (chronic) bilaterally Status: Chronic (8) CO2 retention: Problem details: Patient has severe CO2 retention. Cannot receive supplemental oxygen without BiPAP. She does have hypoxia without dyspnea when she is awake on room air Status: Acute (9) Diarrhea: Problem details: C diff test negative. Scheduled imodium and added cholestyramine on 09/14 Status: Acute Subjective Date Seen: 09/16/23 Interval history: Daily Progress Note - Hospital Medicine #: 20 CC: Chronic respiratory failure dependent on BiPAP, chronic osteomyelitis with wound VAC/wound care OVERNIGHT UPDATES FROM STAFF & MED, LAB, IMAGING UPDATES pleasant. no complaints. feels improved. awaiting placement. RN Note Shift note: T&R, pain treated per eMAR with relief and pt is able to rest overnight Reviewed History: Prerna Major is a 77 year old female paraplegic since childhood, neurogenic bladder with chronic indwelling Cristobal catheter, rheumatoid arthritis on chronic steroid, acute on chronic anemia, lower extremity edema on Lasix, PUD, chronic pressure ulcers is admitted to the CCU from the OR after emergent surgery taken from the ED for further management. -Patient was seen in the ED for rectal pain x1 week with inability to have a bowel movement. Was seen by the wound care nurse today (who manages her wound VAC) with concerns for perirectal wound that is leaking some fluid and blood. -She was taken to the operating room by Dr. Gallegos where she had debridement of a perianal abscess with seton placement. At that time she also had culture and biopsy of the bone done. -Subsequent cultures have grown out Enterococcus faecalis from her wound and her urine and also Clostridium perfringens from her wound. She has a penicillin allergy and has been treated with daptomycin and oral metronidazole. Bone culture was negative so the plan of treatment was 2 weeks for her soft tissue infection. Initially started on ertapenem and completed daptomycin. -Has a history of vocal cord paralysis. -She has had hypoxic and hypercarbic respiratory failure. This is thought to be acute on chronic. She has long-time been suspected to have sleep apnea. Evaluation here shows ventilatory failure at night and she is now transition to BiPAP use when she is sleeping. This seems to be working fairly well for her. She is mildly hypoxic while she is awake during the day with O2 sats in the upper 80s. -She is still having loose stools despite p.r.n. Imodium. Scheduled Imodium to help with loose stools and wound healing on her buttock. No new CBC since 09/10 No new blood gas since 09/04 No new chemistries since 09/10 C diff negative Negative for MRSA screen I reviewed cultures from from her wounds Negative blood cultures Objective: awake. alert. Vitals: see above Lungs: Clear. Cardiac: S1S2. wounds not evaluated. Disposition/Potential discharge - appeal in place to go to SNF for TCU stay. May self pay for stay vs home care plan with [facility]. Today I spent 50minutes seeing the patient, reviewing Expanse and EPIC notes/diagnostics, discussing the care plan with our care time that includes social work, PT/OT, pharmacy, RT, jail and documenting my impressions and plan in the medical record. Exam Const: Vital Signs, click to edit/add: Vital Signs - 24 hr 09/15/23 08:45 09/15/23 11:05 09/15/23 15:00 Temperature 97.3 F L Pulse Rate [Pulse Oximeter] 88 Respiratory Rate 18 18 Blood Pressure [Le ft Radial Artery] Blood Pressure [ri ght forearm] 154/82 H Pulse Oximetry 93 87 L Oxygen Delivery Me thod Room Air Room Air Fraction of Inspir ed Oxygen 21 09/15/23 16:46 09/15/23 23:00 09/15/23 23:00 Temperature 97.5 F L Pulse Rate [Pulse Oximeter] 96 113 H Respiratory Rate 18 18 Blood Pressure [Le ft Radial Artery] Blood Pressure [ri ght forearm] 109/55 L Pulse Oximetry 86 L 86 L Oxygen Delivery Me thod Room Air Room Air Fraction of Inspir ed Oxygen 09/15/23 23:00 Temperature 98.5 F Pulse Rate [Pulse Oximeter] 102 H Respiratory Rate 18 Blood Pressure [Le ft Radial Artery] 172/79 H Blood Pressure [ri ght forearm] Pulse Oximetry 87 L Oxygen Delivery Me thod Room Air Fraction of Inspir ed Oxygen
[2023-09-16 07:46] VITALS: RESP 20; O2SAT 90
[2023-09-16 07:50] VITALS: BP 145/61; PULSE 86; RESP 20; TEMP 36.6; O2SAT 90
[2023-09-16] MEDS: CHOLESTYRAMINE POWDER 4 GM PO (08:34)
[2023-09-16] MEDS: ACETAMINOPHEN 325 MG TABLET 650 MG PO ×3 (08:36→21:27)
[2023-09-16] MEDS: OXYCODONE 5 MG TABLET PO ×3 (08:39→21:26)
[2023-09-16] MEDS: LACTOBACILLUS ACIDOPHILUS 1 TABLET 2 TAB PO ×3 (08:40→18:20)
[2023-09-16] MEDS: GABAPENTIN 300 MG CAPSULE PO ×3 (08:42→21:27)
[2023-09-16] MEDS: OMEPRAZOLE 20 MG CAPSULE DR PO ×2 (08:42→21:26)
[2023-09-16] MEDS: METOPROLOL TARTRATE 25 MG TABLET PO ×2 (08:43→21:26)
[2023-09-16] MEDS: FUROSEMIDE 40 MG TABLET PO (08:43)
[2023-09-16] MEDS: LOPERAMIDE HCL 2 MG CAPSULE PO ×3 (08:44→18:20)
[2023-09-16] MEDS: predniSONE 5 MG TABLET 10 MG PO (08:45)
[2023-09-16] MEDS: POTASSIUM CHLORIDE 10 MEQ CAPSULE ER 20 MEQ PO ×2 (08:46→18:19)
[2023-09-16] MEDS: NYSTATIN POWDER 1 APPLIC TOPICAL ×2 (08:47→21:25)
[2023-09-16] MEDS: SODIUM CHLORIDE 0.9 % (FLUSH) 10 ML SYRINGE 5 ML IVF ×2 (08:47→21:25)
--- NOTE | 2023-09-16 13:15 | NUTR.NU ---
Nutrition Follow-up: RDN with follow-up related to length of stay. Patient reports drinking at least once Ensure Enlive daily recently. She mainly consumes 2 meals daily, averaging 75-100%. Weight remains stable in about 130-135 lb range. Of note, weight has decreased by about 30 lbs since admit, however this is suspected to be related to fluid. Weight can also fluctuate due to bedscale being used to obtain weight. Patient now has wound vac. Plan is for patient to discharge to SNF for wound cares. Patient had no questions or concerns, and declined Demario and diet education on protein sources at this time. RDN will continue to monitor and follow-up prn.
[2023-09-16] MEDS: TRIAMCINOLONE ACETONIDE OINTMENT 0.1 % 1 APPLIC TOPICAL ×2 (14:55→21:26)
[2023-09-16 15:00] VITALS: BP 123/62; PULSE 88; RESP 26; TEMP 36.9; O2SAT 89
--- NOTE | 2023-09-16 15:41 | PC.SOCIAL ---
Discharge plan: Spoke with Leela at [facility] and confirmed pt can be admitted tomorrow by 2:00. Pt will pay privately as insurance appeal has not yet been decided. If insurance agrees to pay, pt will get the money she pays to [facility] back. Pt is aware and agrees with this discharge plan. Explained the Important Message from Medicare provided yesterday again to pt and dtr. Pt is not interested in appealing her Medicare discharge. Pt states her family will provide transportation in their wheelchair accessible van at discharge. Spoke with dtr by phone who is aware and agrees with this plan. Emailed contact information for [facility] to dtr at her request to discuss financial payment. PAS was already completed and social human services assistants called [facility] [employer] [facility] to update discharge date to tomorrow. pull worker to follow up as needed.
--- NOTE | 2023-09-16 16:12 | PC.NURSE ---
Shift Summary :patient pleasant and cooperative. T&R q2h and as requested. Wound vac and dressing change done today around noon. Tolerating regular diet, appetite good today. Vitals stable and WNL. Has been on RA since this morning, o2 sats >90%. Pain managed with scheduled and PRN medication. x1 loose incontinent BM.
[2023-09-16] MEDS: hydrOXYzine pamoate 25 MG CAPSULE PO (21:26)
[2023-09-16] MEDS: ENOXAPARIN 40 MG/0.4 ML INJ SUBCUT (21:26)
--- NOTE | 2023-09-16 21:41 | PC.NURSE ---
Shift Note [id number]: VSS, pt has been slightly tachycardic. HR low hundreds to about 111 BPM. RR= 26, Pt denies dyspnea and appears comfortable. Spo2 85-89% on RA, pt using Bipap at HS. Rates pain 7/10, particularly on her right side where her wounds are located. Pain being managed with Oxycodone, Gabapentin, Vistaril, Tylenol, and repositioning. Tolerating a regular diet without N/V. Pt had one loose stool this evening. Catheter patent and draining, pt has had adequate urine output. Planned discharge to [facility] tomorrow between [id number]. Family will provide transport.
--- NOTE | 2023-09-17 05:13 | PC.NURSE ---
END OF SHIFT NOTE: PT PLEASANT AND COOPERATIVE. A&O. PT DENIES CP AND N/V. PT PARAPLEGIC; TURN AND REPO THROUGHOUT THE NIGHT. VSS ON RA; AFEBRILE. BIPAP ON WHILE ASLEEP. WOUND VAC IN PLACE AND FUNCTIONING APPROPRIATELY ON [address]CTION[address] HELLER IN PLACE, DRAINING LIGHT BRITTANEY URINE. PT TO D/C TODAY TO [facility] VIA FAMILY TRANSPORT ([facility] TO BE BETWEEN 10-1030). CALL LIGHT WITHIN PT?S REACH.?
[2023-09-17 07:45] VITALS: BP 147/69; PULSE 92; RESP 18; TEMP 36.5; O2SAT 90
[2023-09-17] MEDS: LACTOBACILLUS ACIDOPHILUS 1 TABLET 2 TAB PO (09:27)
[2023-09-17] MEDS: LOPERAMIDE HCL 2 MG CAPSULE PO (09:28)
[2023-09-17] MEDS: ACETAMINOPHEN 325 MG TABLET 650 MG PO (09:28)
[2023-09-17] MEDS: POTASSIUM CHLORIDE 10 MEQ CAPSULE ER 20 MEQ PO (09:28)
[2023-09-17] MEDS: OMEPRAZOLE 20 MG CAPSULE DR PO (09:29)
[2023-09-17] MEDS: METOPROLOL TARTRATE 25 MG TABLET PO (09:29)
[2023-09-17] MEDS: GABAPENTIN 300 MG CAPSULE PO (09:29)
[2023-09-17] MEDS: FUROSEMIDE 40 MG TABLET PO (09:29)
[2023-09-17] MEDS: predniSONE 5 MG TABLET 10 MG PO (09:30)
[2023-09-17] MEDS: CHOLESTYRAMINE POWDER 4 GM PO (09:30)
[2023-09-17] MEDS: NYSTATIN POWDER 1 APPLIC TOPICAL (09:31)
[2023-09-17] MEDS: SODIUM CHLORIDE 0.9 % (FLUSH) 10 ML SYRINGE 5 ML IVF (09:31)
[2023-09-17] MEDS: OXYCODONE 5 MG TABLET PO (09:48)
--- NOTE | 2023-09-17 14:18 | PM.DS1 ---
DS: Providers Provider Date Seen: 09/17/23 Date of admission: 08/28/23 12:18 Primary care physician: Flo Mckeon MD Admitting Clinician: Maria D Gallegos MD Consults: 08/28/23 12:16 Consult to Respiratory Therapy [CONS] Routine Comment: Reason(s) for RT Consult:: Consult 08/28/23 12:18 Consult to [facility] [CONS] Routine Comment: Reason for Consult:: Social Service Consult 08/28/23 12:40 Consult to Infectious Diseases [CONS] Routine Comment: Consulting Provider: [facility] Consult priority: Urgent Has provider been notified: No Call back required?: Yes Attending Physician on discharge: Melvi Bear MD [facility] Date of Discharge: 09/17/23 DS: Diagnosis Discharge Diagnosis (1) Aure-rectal abscess: Status: Acute Problem details: -Status post Incision and drainage right perianal abscess with seton placement (now removed), Bone biopsy chronic right ischial tuberosity wound 08/28/2023 -bone cultures negative. soft tissue infection was treated with ceftriaxone, flagyl, daptomycin. 14 days total. -PICC line placed and removed prior to discharge -urinary catheter placed and kept at discharge (2) Acute on chronic respiratory failure with hypoxia and hypercapnia: Status: Acute Problem details: -related to severe HUI - much improved with BiPAP. -patient is very dependent on BiPAP wear at night. Without it she becomes encephalopathic with CO2 retention. -supplemental oxygen is inappropriate in this setting. PO2 levels 88-90 are acceptable and are goal. (Lab proof needed for BiPAP prescription): - VBG 08/29/2023: pH 7.23, pCO2 82, pO2 50, HCO3- 34. Bicarb on her chemistries remains elevated consistent with chronic CO2 retention. - metabolic encephalopathy, improved with BIPap. Meets qualification criteria for ongoing BiPAP therapy hereafter. 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, stage 4: Status: Chronic Problem details: -Chronic right ischial tuberosity wound with concern for osteomyelitis -wound VAC in place, WOC managing outpatient. Continue wound cares. (4) Paraplegia: Status: Chronic Problem details: -since age 6; muscle atrophy (chronic) bilaterally (5) Rheumatoid arthritis: Status: Acute Problem details: -on chronic daily prednisone 10 mg, continue (6) CO2 retention: Status: Acute Problem details: Patient has severe CO2 retention. Cannot receive supplemental oxygen without BiPAP. She does have hypoxia without dyspnea when she is awake on room air (7) UTI (urinary tract infection): Status: Acute Problem details: -urine culture growing Enterococcus faecalis, sensitivities reviewed, IV antibiotics given during this hospitalization were sufficient. DS: Summary Hospital Course Hospital Course: FINAL DIAGNOSIS/FOLLOW UP ISSUES: 1. Chronic stage IV sacral ulcer. Wound VAC treatment per wound care recommendations. Thrice weekly assessment and replacement. 2. Perirectal abscess, urgently debrided at admission. Bone cultures negative. Treated with IV antibiotics for 14 days. 3. Severe HUI. Became dependent nightly on well-fitting BiPAP. Patient does not breathe over setting on the BiPAP. This is a must use intervention. With inappropriate O2 titration or poor fitting BiPAP use or compliance she is at risk for respiratory depression, CO2 narcosis. BRIEF HOSPITAL COURSE: Patient was admitted for 2 days. Synopsis of acute inpatient issues are outlined above. Chronic medical conditions with notable findings outlined above. DISCHARGE MEDICATIONS: See Reconciled list - SIGNIFICANT CHANGES: Furosemide 40 mg q.day Diarrhea control after so many days of antibiotics required lactobacillus, p.r.n. Imodium and scheduled Questran Nystatin, triamcinolone for adhesive East reactions Potassium replacement Specific instructions to the patient and follow-up are outlined below. REVIEW OF SYSTEMS No new chest pain or dyspnea Pain controlled No voiding difficulties Tolerating diet challenge PHYSICAL EXAM: CONSTITUTIONAL: Alert. Awake. Asking insightful questions. Making her own financial decisions. VITAL SIGNS: see record. HEENT: Normocephalic, atraumatic. PERRL, EOMI, conjunctivae pink, no scleral icterus. Ears and nose externally normal. Pharynx normal. NECK: No JVD. No carotid bruit, no thyromegaly, no adenopathy. CHEST: Clear to auscultation bilaterally. HEART: S1 and S2 normal. Edema ABDOMEN: Soft, nontender. Normal bowel sounds. MUSCULOSKELETAL: Atrophic legs. NEURO: Cranial nerves intact. Grossly intact. No asymmetric findings. SKIN: Her to different areas of concern which include 1) Uare rectal abscess/cellulitis this is much improved. 2) Deep sacral ulcer which is a separate finding remains deep and in need of aggressive wound management. PSYCHIATRIC: Mood euthymic. DISPOSITION: longterm, long-term care Time spent on discharge 37 minutes. Time Spent with Patient Time attestation: Total time spent providing and/or coordinating discharge services: Exam Const: Vital Signs, click to edit/add: Vital Signs - 24 hr 09/16/23 15:00 09/16/23 15:00 09/16/23 15:00 Temperature 98.4 F Pulse Rate [Pulse Oximeter] 88 88 Respiratory Rate 26 H 26 H Blood Pressure [ri ght forearm] 123/62 Pulse Oximetry 89 89 Oxygen Delivery Me thod Room Air Room Air Fraction of Inspir ed Oxygen 09/16/23 17:02 Temperature Pulse Rate [Pulse Oximeter] Respiratory Rate Blood Pressure [ri ght forearm] Pulse Oximetry Oxygen Delivery Me thod Fraction of Inspir ed Oxygen 21 DS: Data Data Completed and Pending Completed studies during hospitalization: Procedures Excision of Duodenum, Via Natural or Artificial Opening Endoscopic, Diagnostic (10/31/22) Excision of Right Upper Leg Subcutaneous Tissue and Fascia, Open Approach (10/31/22) Excision of Stomach, Pylorus, Via Natural or Artificial Opening Endoscopic, Diagnostic (10/31/22) Introduction of Other Gas into Respiratory Tract, Via Natural or Artificial Opening (01/15/23) Transfusion of Nonautologous Red Blood Cells into Peripheral Vein, Percutaneous Approach (10/31/22) Discharge Plan Discharge Disposition: [facility] Date of Admission: 08/28/23 12:18 Attending Provider on Discharge: Melvi Bear Consulting Providers: Jennifer Phipps; Azul Ulloa; Camilo Odonnell Tiffany; Cheryl Schafer Primary Care Provider: Flo Mckeon Discharge Medications: New furosemide 40 mg Tablet 40 mg PO DAILY@0800 Qty: 30 0RF potassium chloride 10 mEq Capsule, Extended Release 20 meq PO BIDWM Qty: 60 0RF loperamide 2 mg Capsule 2 mg PO TIDWM Qty: 30 0RF triamcinolone acetonide 0.1 % Ointment 1 applic topical BID PRNQty: 80 0RF nystatin 100,000 unit/gram Powder 1 applic topical BID Qty: 80 0RF oxycodone 5 mg Tablet 5 mg PO TID PRN (Reason: pain) Qty: 90 0RF cholestyramine-aspartame 4 gram Powder In Packet 1 ea PO DAILY Qty: 30 0RF Lactobacillus acidophilus 0.5 mg (100 million cell) Tablet 25 mmu cells PO TIDWM Qty: 180 0RF Rx Instructions: ok to substitute with what's in stock Continued multivitamin [Daily Multi-Vitamin] Tablet 1 tab PO DAILY Probiotic 3 billion cell capsule 3,000 mmu cells PO DAILY Rx Instructions: administer with a meal ascorbate calcium (vitamin C) 500 mg tablet 500 mg PO QDAY gabapentin 300 mg capsule 300 mg PO TID Qty: 270 3RF prednisone 5 mg tablet 10 mg PO DAILY Qty: 180 3RF bisacodyl [Gentle Laxative (bisacodyl)] 10 mg suppository 10 mg GA BID PRN nystatin 100,000 unit/gram powder 1 applic topical BID PRN zinc sulfate [Orazinc] 50 mg zinc (220 mg) capsule 100 mg PO DAILY acetaminophen [8 Hour Pain Reliever] 650 mg tablet extended release 1,300 mg PO BID PRN metoprolol succinate 50 mg tablet extended release 24 hr 50 mg PO DAILY oxycodone 5 mg tablet 5 mg PO TID PRN (Reason: pain) Qty: 90 0RF omeprazole 20 mg capsule,delayed release(DR/EC) 20 mg PO BID Qty: 180 3RF Discontinued furosemide 20 mg tablet 20 mg PO QAM Qty: 90 3RF Discharge Orders: Discharge Order (Routine); Ordered 09/17/23 Ordered By: Melvi Bear Additional Instructions: 1. MOST IMPORTANT CARE NOTE: Pt is totally relies on BIPAP at night. It must be placed each night appropriately, this is not a prn support. 2. Do not put more than 1.5L of additional oxygen on her. If she naps - get gets BIPAP. If she needs a liter of oxygen prn - that is ok but DO NOT GO OVER 1.5L by NC or bleed in with BIPAP Activity Level: Activity as Tolerated Discharge Diet: Regular Follow Up Appointments: Flo Mckeon MD [Primary Care Provider] - Maria D Gallegos MD [Staff Physician] - (Patient should follow-up in 1-2 weeks either at my [facility] location or may follow-up in wound center.) Forms: [facility] Info Instructions Wound Care: Change VAC dressing to right ischial tuberosity wound Friday. Set pressure to -125 mmHg. To right perianal wound, perform daily dressing changes with Vashe-soaked kerlix. Make sure that gauze gets to the wound base. Admit to: SNF Discharge Potential: Poor Length of Stay: >90 days Can use facility standing orders?: Yes Code Status: Full Code Rehab Potential: Poor Oxygen: Yes Oxygen Delivery Method: Nasal Cannula Oxygen Flow Rate: NO MORE THAN 1.5 LITERS. BIPAP WHILE SLEEPING. SEE PRESCRIPTION FOR SETTING Urinary Catheter: Yes Orders are good >30 days: Yes
--- NOTE | 2023-09-17 15:53 | PC.NURSE ---
Please see eMar for medications provided to Mary this am. Dressings changed per protocol. PICC line discontinued, pressure dressing applied per protocol. Wound Vac tubing disconnected in preparation for transport to [facility]. Pt dressed, given pericares and transferred to her personal w/c with ceiling lift & assist of 3 staff members. Cristobal catheter changed yesterday and remains patent. Personal belongings returned and d/c summary reviewed with pt and her dtr. Transported with her sig other Jeremiah and dtr via handicapped accessible van to [facility] at 1107 am. Report called by Nelsy gann RN to accepting facility.
--- NOTE | 2023-12-02 13:36 | ED.NURSE ---
Daughter is calling to inquire about a wound vac that is missing as patient went to SNF from [facility]. I sent the daughter to [facility] to help sort out the missing wound vac.
== END 2023-09-17 11:07 | DRG 344 ==
LOC: ED 08-28 06:38 → OR 08-28 08:42 → ED 08-28 09:26 → SS 08-28 09:31 → MEDSURG 08-28 12:10 → SS 08-28 13:34 → MEDSURG 08-28 13:34
PROVIDERS: Family Medicine; Internal Medicine; Physician Assistant; Admitting Provider Surgery; Emergency Provider Family Medicine; PCP Family Medicine; Visit Provider Surgery
PROC: 0D9Q0ZX Drainage of Anus, Open Approach, Diagnostic (ICD-10-PCS; CPT 46040; principal; 2023-08-28 07:30)
DX: K61.2 Anorectal abscess (principal); A41.81 Sepsis due to Enterococcus; L89.314 Pressure ulcer of right buttock, stage 4; L89.154 Pressure ulcer of sacral region, stage 4; L89.323 Pressure ulcer of left buttock, stage 3; L89.44 Pressure ulcer of contiguous site of back, buttock and hip, stage 4; G93.41 Metabolic encephalopathy; M72.6 Necrotizing fasciitis; J96.22 Acute and chronic respiratory failure with hypercapnia; J96.21 Acute and chronic respiratory failure with hypoxia; I50.33 Acute on chronic diastolic (congestive) heart failure; A41.89 Other specified sepsis; J98.11 Atelectasis; E27.3 Drug-induced adrenocortical insufficiency; G82.20 Paraplegia, unspecified; I96 Gangrene, not elsewhere classified; L02.215 Cutaneous abscess of perineum; M86.651 Other chronic osteomyelitis, right thigh; G47.33 Obstructive sleep apnea (adult) (pediatric); N31.9 Neuromuscular dysfunction of bladder, unspecified; F11.90 Opioid use, unspecified, uncomplicated; R19.7 Diarrhea, unspecified; B96.7 Clostridium perfringens [C. perfringens] as the cause of diseases classified elsewhere; B95.2 Enterococcus as the cause of diseases classified elsewhere; I10 Essential (primary) hypertension; T38.0X5A Adverse effect of glucocorticoids and synthetic analogues, initial encounter; J38.01 Paralysis of vocal cords and larynx, unilateral; M62.59 Muscle wasting and atrophy, not elsewhere classified, multiple sites; N76.82 Fournier disease of vagina and vulva; K59.09 Other constipation; R34 Anuria and oliguria; M06.9 Rheumatoid arthritis, unspecified; Z79.52 Long term (current) use of systemic steroids; T80.89XA Other complications following infusion, transfusion and therapeutic injection, initial encounter; R21 Rash and other nonspecific skin eruption; D64.9 Anemia, unspecified; I71.43 Infrarenal abdominal aortic aneurysm, without rupture; Z86.14 Personal history of Methicillin resistant Staphylococcus aureus infection
CPT/HCPCS: 00400; 36415; 36573; 36600; 51701; 71045; 71275; 74177; 80048; 80076; 81001; 82550; 82803; 83605; 83735; 83880; 84484; 85025; 85027; 86140; 87040; 87070; 87075; 87076; 87081; 87086; 87186; 87205; 87493; 87631; 88361; 93005; 93971; 94660; 94761; 99100; 99140; 99285; A4221; A9270; C1751; C9113; J0330; J0696; J0878; J1100; J1170; J1335; J1650; J1720; J1885; J1940; J2060; J2371; J2405; J3490; J7030; J7120; J7512; Q9967

== ENCOUNTER 2023-12-08 15:08 | Inpatient (IN) | payer MEDICARE, SELFPAY ==
[2023-12-08] VITALS (10 sets, daily range): BP systolic 122–150; BP diastolic 53–80; PULSE 110–128; RESP 16–28; TEMP 37.3–38.3; O2SAT 90–97; BMI 23.4
--- NOTE | 2023-12-08 15:16 | ED.GENADULT ---
HPI - General Adult General Time Seen by Provider: 15:17 Date Seen: 12/08/23 Chief complaint: Fever Stated complaint: Fever Time Seen by Provider: 12/08/23 15:11 Source: patient, EMS, RN notes reviewed and old records reviewed Mode of arrival: EMS Limitations: no limitations History of Present Illness HPI narrative: This 77-year-old female is brought in by EMS from her rehabilitation facility for fever, not feeling well, nausea. Patient states she has had some cough but not worse than baseline, did have some diarrhea today but does have some diarrhea baseline per her record. She was hospitalized here in September with sepsis complicating a perirectal abscess. She had an underlying known UTI at the time that was being treated with Cipro, culture prior to admission grew Enterococcus faecalis during the hospitalization. The hospitalization was complicated by a acute on chronic respiratory failure with hypoxia and hypercapnia, was treated with BiPAP, underlying severe obstructive sleep apnea. She had a known pressure ulcer of right buttock and hip stage for, manage with wound VAC, wound VAC still in place. Patient has neurogenic bladder and is paraplegic. She has underlying rheumatoid arthritis treated with chronic daily prednisone. Since yesterday, she has just not been feeling well, had nausea. She is complaining of some abdominal pain today, had diarrhea earlier. Unknown if she has had C difficile colitis. She states the right hip and buttock pressure ulcer seems to be at its baseline as far as pain. She does not feel like it is worse today. She has had a mild headache today. Denies any sore throat. Patient is currently at [facility]. Related Data Home Medications Medication Instructions Recorded Confirmed multivitamin (Daily Multi-Vitamin 1 tab PO DAILY 07/10/22 12/08/23 tablet) bisacodyl 10 mg rectal suppository 10 mg VA BID PRN 01/13/23 12/08/23 (Gentle Laxative (bisacodyl)) zinc sulfate 50 mg zinc (220 mg) 100 mg PO DAILY 01/13/23 12/08/23 capsule (Orazinc) ascorbate calcium (vitamin C) 500 500 mg PO DAILY 05/30/23 12/08/23 mg tablet metoprolol succinate 50 mg 50 mg PO DAILY 08/31/23 12/08/23 tablet,extended release 24 hr acetaminophen 500 mg capsule 1,000 mg PO Q8H PRN 12/08/23 12/08/23 benzonatate 100 mg capsule 100 mg PO TID PRN 12/08/23 12/08/23 carboxymethylcellulose sodium 0.5 1 drp ophthalmic (eye) TID 12/08/23 12/08/23 % eye drops in a dropperette (Refresh Plus) miconazole nitrate 2 % topical 1 applic topical BID 12/08/23 12/08/23 powder oxycodone 5 mg tablet 7.5 mg PO QID PRN pain 12/08/23 12/08/23 Previous Rx's Medication Instructions Recorded gabapentin 300 mg capsule 300 mg PO TID #270 caps 06/24/23 prednisone 5 mg tablet 10 mg (2 x 5 mg) PO DAILY #180 tabs 06/24/23 omeprazole 20 mg capsule,delayed 20 mg PO BID #180 caps 08/29/23 release Lactobacillus acidophilus 0.5 mg 25 mmu cells PO TIDWM #180 tabs 09/17/23 (100 million cell) tablet furosemide 40 mg tablet 40 mg PO DAILY@0800 #30 tabs 09/17/23 loperamide 2 mg capsule 2 mg PO TIDWM #30 caps 09/17/23 potassium chloride 10 mEq 20 meq (2 x 10 mEq) PO BIDWM #60 09/17/23 capsule,extended release caps triamcinolone acetonide 0.1 % 1 applic topical BID PRN #80 grams 09/17/23 topical ointment Allergies Allergy/AdvReac Type Severity Reaction Status Date / Time vancomycin Allergy Severe Hives Verified 12/08/23 15:33 piperacillin Allergy Intermediate Rash Verified 12/08/23 15:33 tazobactam Allergy Intermediate Rash Verified 12/08/23 15:33 Review of Systems Status of ROS: Reports: 6 or more systems reviewed and unremarkable except as noted in History and below [facility] Medical History Diarrhea ?R19.7 - Diarrhea, unspecified (ICD-10) Intravenous infiltration ?T80.1XXA - Vascular complications following infusion, transfusion and therapeutic injection, initial encounter (ICD-10) Neurogenic bladder ?N31.9 - Neuromuscular dysfunction of bladder, unspecified (ICD-10) Chronic, continuous use of opioids ?F11.90 - Opioid use, unspecified, uncomplicated (ICD-10) Chronic steroid use 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, stage 4 ?L89.44 - Pressure ulcer of contiguous site of back, buttock and hip, stage 4 (ICD-10) Rheumatoid arthritis ?M06.9 - Rheumatoid arthritis, unspecified (ICD-10) HTN (hypertension) ?I10 - Essential (primary) hypertension (ICD-10) Cristobal catheter in place ?Z97.8 - Presence of other specified devices (ICD-10) Sleep apnea ?G47.30 - Sleep apnea, unspecified (ICD-10) Paraplegia ?G82.20 - Paraplegia, unspecified (ICD-10) Acute on chronic anemia ?D64.9 - Anemia, unspecified (ICD-10) Anemia ?D64.9 - Anemia, unspecified (ICD-10) Osteomyelitis ?M86.9 - Osteomyelitis, unspecified (ICD-10) Paraplegia ?G82.20 - Paraplegia, unspecified (ICD-10) Chronic pain ?G89.29 - Other chronic pain (ICD-10) Tubular adenoma of colon ?D12.6 - Benign neoplasm of colon, unspecified (ICD-10) 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 - Acute transverse myelitis in demyelinating disease of central nervous system (ICD-10) Septic shock ?A41.9 - Sepsis, unspecified organism (ICD-10) ?R65.21 - Severe sepsis with septic shock (ICD-10) Recurrent urinary tract infection ?N39.0 - Urinary tract infection, site not specified (ICD-10) Osteoporosis ?M81.0 - Age-related osteoporosis without current pathological fracture (ICD-10) History of methicillin resistant Staphylococcus aureus infection ?Z86.14 - Personal history of Methicillin resistant Staphylococcus aureus infection (ICD-10) Surgical History Status post debridement ?Z98.890 - Other specified postprocedural states (ICD-10) Social History (Updated 12/08/23 @ 23:55 by Lucía Espinoza MD) Narrative: Mary has recently been living at [facility], daughter Elvi (MDM if needed) is hoping to bring her home with time study clerk caregiving. has cognitive impairment. At this time (12/08/23), she is requesting DNR/DNI status. Nonsmoker, no ETOH use. What is your current living situation?: I presently have a place to live Problems where you live: no known problems Problems where you live details: NA In the past 12 months, utilities in danger of being shut off: unable to answer In past 12 months, lack of transportation kept you from medical appts, meetings, work, or getting things needed for daily living: unable to answer In the past 12 mos, have been you worried that your food would run out before you had money to buy more?: unable to answer In the past 12 mos, the food you bought just didn't last and you didn't have money to buy more?: unable to answer Highest level of school completed/degree received: decline to answer Smoking Status: Never smoker Do you use any of these nicotine containing products: None and E-Cigarettes Second hand tobacco smoke exposure: No How often do you have a drink containing alcohol: never How often do you have six or more drinks on one occasion: Never AUDIT-C Alcohol total score: 0 Non-prescribed substance use: denies use Caffeine: No How often does anyone, including family, friends and others, physically hurt you: unable to answer How often does anyone, including family, friends and others, insult or talk down to you: unable to answer How often does anyone, including family, friends and others, threaten you with harm: unable to answer How often does anyone, including family, friends and others, scream or curse at you: unable to answer Little interest or pleasure in doing things: several days Feeling down, depressed, or hopeless: several days service: No Exam Const: Vital Signs, click to edit/add: Vital Signs - 24 hr 12/08/23 15:12 12/08/23 15:17 12/08/23 15:18 Temperature 99.7 F H 99.7 F H Pulse Rate Pulse Rate [Pulse Oximeter] 128 H 120 H Respiratory Rate 16 28 H Blood Pressure Blood Pressure [Le ft Radial Artery] 131/55 L Blood Pressure [Le ft Upper Arm] 124/53 L Pulse Oximetry 94 90 90 Oxygen Delivery Me thod Room Air Room Air Fraction of Inspir ed Oxygen 12/08/23 15:32 12/08/23 16:00 12/08/23 16:56 Temperature Pulse Rate 125 H 118 H Pulse Rate [Pulse Oximeter] Respiratory Rate 18 Blood Pressure 131/55 L Blood Pressure [Le ft Radial Artery] Blood Pressure [Le ft Upper Arm] Pulse Oximetry 93 95 Oxygen Delivery Me thod Fraction of Inspir ed Oxygen 21 12/08/23 17:02 12/08/23 17:32 12/08/23 17:55 Temperature 99.7 F H Pulse Rate 122 H 117 H Pulse Rate [Pulse Oximeter] 112 H Respiratory Rate 18 18 18 Blood Pressure 150/58 H 140/66 H Blood Pressure [Le ft Radial Artery] Blood Pressure [Le ft Upper Arm] 124/53 L Pulse Oximetry 93 94 Oxygen Delivery Me thod Fraction of Inspir ed Oxygen 12/08/23 18:07 12/08/23 18:07 Temperature 101 F H Pulse Rate Pulse Rate [Pulse Oximeter] 120 H Respiratory Rate 18 Blood Pressure Blood Pressure [Le ft Radial Artery] 122/80 Blood Pressure [Le ft Upper Arm] Pulse Oximetry 95 Oxygen Delivery Me thod Room Air Fraction of Inspir ed Oxygen Documenting provider has reviewed patient's vital signs: yes Course Reevaluation(s) Time of Reevaluation #1: 15:56 Reevaluation #1: Have reviewed patient's venous blood gas. Given her history of respiratory failure with hypoxia and hypercarbia, have asked respiratory therapy to come down. Patient is resting, sleeping at this time, do think she should be placed on BiPAP to support her severe obstructive sleep apnea. Awaiting labs and her abdominal imaging/chest with this. Time of Reevaluation #2: 16:41 Reevaluation #2: Radiology called to notify me that patient is refusing the contrast. She did not like how it made her feel last time, had some infiltration of it last time. Radiology staff his tried to explain to her the need for better imaging and wide is important, she still refuses. We will proceed with the chest abdomen pelvis without IV contrast as patient is refusing the IV contrast. Time of Reevaluation #3: 16:51 Reevaluation #3: Patient is back from CT imaging, went to review with her that her COVID PCR is positive. Her daughter is now here, she states she was in quarantine for COVID about 2-3 weeks ago, did not take any treatment for it, recovered. She notes that the catheter is not been changed for 2 months, the facility she is in cannot do it reportedly. Have reviewed with her that the urine does look abnormal but patients with chronic indwelling catheter certainly can have abnormal urines. If we see nothing else on her CT imaging, will be treating for UTI for sure. Will consider her urinalysis in any possible treatment antibiotic regimens that I may need, if there are any other indications on her CT imaging that would show other sources of infection. Will do COVID antigen to see if she still shedding. Reviewed with the daughter that the PCR can stay positive for while. We are going to get her set up with BiPAP now, she reportedly did not want use our machine as she does not like it but it is really necessary for her to use this with her hypercapnia. Consultations Consultation #1: Did review with the hospitalist Dr. Espinoza, we discussed antibiotic coverage. She believes the reaction to the vancomycin and Zosyn probably happened while she was in the hospital last time. She remembers it being difficult to sort out. We have discussed previous UTI documented to be Enterococcus faecalis, sensitive to Cipro. We are going to do IV dose of Cipro for urinary coverage, you cefepime for other potential coverage of sepsis. Again reported to be vanco allergic. Will add on a magnesium as her potassium was low. I do not think she is going to tolerate oral replacement, have ordered 2 doses of IV potassium. Patient will have completed 1 L of normal saline and 1 L of lactated Ringer's, hospitalist is aware to assess volume status as patient is meeting criteria, may need more IV fluids. She has mild troponin change, will need to be followed. She is not having any chest symptoms. EKG is not endorsing any distribution of active ischemia or infarct. This may represent end-organ disease from sepsis. We also have added on a COVID antigen to ensure patient is no longer shedding. Time: 17:09 Vital Signs Vital signs: Initial Vital Signs Temperature 99.7 F H 12/08/23 15:12 Temperature Source Temporal Artery Scan 12/08/23 15:12 Pulse Rate 128 H 12/08/23 15:12 Respiratory Rate 16 12/08/23 15:12 Blood Pressure 124/53 L 12/08/23 15:12 Blood Pressure Mean 76 12/08/23 15:12 Blood Pressure Position Supine 12/08/23 15:12 Pulse Oximetry 94 12/08/23 15:12 Oxygen Delivery Method Room Air 12/08/23 15:12 Vital Signs Temperature 99.7 F H 12/08/23 15:12 Pulse Rate 128 H 12/08/23 15:12 Respiratory Rate 16 12/08/23 15:12 Blood Pressure 124/53 L 12/08/23 15:12 Pulse Oximetry 94 12/08/23 15:12 Oxygen Delivery Method Room Air 12/08/23 15:12 Temperature 96.7 F L 12/09/23 05:00 Pulse Rate 109 H 12/09/23 05:00 Respiratory Rate 20 12/09/23 05:00 Blood Pressure 135/65 12/09/23 05:00 Pulse Oximetry 95 12/09/23 05:00 Oxygen Delivery Method Room Air 12/09/23 05:00 Fraction of Inspired Oxygen 12/08/23 16:56 Medications Administered Medications: Generic Name Dose Route Start Last Admin Trade Name Freq PRN Reason Stop Dose Admin Gabapentin 300 mg 12/08/23 21:00 12/08/23 22:38 Gabapentin 300 Mg Capsule PO 300 mg TID ESTELA Administration Lactated Ringer's 1,000 mls @ 125 mls/hr 12/08/23 20:55 12/09/23 04:08 Lactated Ringers 1000 Ml IV 125 mls/hr .Q8H ESTELA Administration Cefepime HCl 1 gm/ Sodium 100 mls @ 200 mls/hr 12/09/23 06:00 12/09/23 05:29 Chloride IVPB 200 mls/hr Q8H ESTELA Administration Morphine Sulfate 2 - 4 mg 12/08/23 20:38 12/08/23 21:38 Morphine 4 Mg/Ml Inj IVP 4 mg Q1H PRN Administration Oxycodone HCl 7.5 mg 12/08/23 18:09 12/09/23 04:59 Oxycodone 5 Mg Tablet PO 7.5 mg Q4H PRN Administration Sodium Chloride 5 ml 12/08/23 21:00 12/08/23 21:38 Sodium Chloride 0.9 % (Flush) 10 Ml Syringe IVF 5 ml BID ESTELA Administration Discontinued Medications Generic Name Dose Route Start Last Admin Trade Name Freq PRN Reason Stop Dose Admin Sodium Chloride 1,000 mls @ 1,000 mls/hr 12/08/23 15:21 12/08/23 16:50 0.9 % Sodium Chloride 1000 Ml IV 12/08/23 16:20 Infused .Q1H ESTELA Infusion Lactated Ringer's 1,000 mls @ 500 mls/hr 12/08/23 16:54 12/08/23 17:09 Lactated Ringers 1000 Ml IV 12/08/23 18:53 500 mls/hr .Q2H ESTELA Administration Cefepime HCl 2 gm/ Sodium 100 mls @ 200 mls/hr 12/08/23 17:06 12/08/23 21:54 Chloride IVPB 12/08/23 17:07 Infused ONCE ONE Infusion Ciprofloxacin 400 mg in 200 mls @ 200 mls/hr 12/08/23 17:30 12/09/23 00:35 Ciprofloxacin IVPB 12/08/23 18:29 200 mls/hr ONCE ONE Administration Potassium Chloride 10 meq in 100 mls @ 100 mls/hr 12/08/23 17:15 12/09/23 01:45 Potassium Chloride IVPB 12/08/23 19:44 70 mls/hr Q90M ESTELA Infusion Potassium Chloride 10 meq in 100 mls @ 100 mls/hr 12/08/23 20:45 12/09/23 06:26 Potassium Chloride IVPB 12/09/23 02:14 70 mls/hr Q90M ESTELA Administration Lactated Ringer's 500 mls @ 500 mls/hr 12/08/23 20:55 12/08/23 23:11 Lactated Ringers 1000 Ml IV 12/08/23 22:54 500 mls/hr .Q1H ESTELA Administration Cefepime HCl 1 gm/ Sodium 100 mls @ 200 mls/hr 12/08/23 21:30 12/09/23 01:50 Chloride IVPB Not Given Q8H ESTELA Medical Decision Making Lab Data Lab results reviewed: Yes I reviewed the patient's lab results Labs: Lab Results 12/08/23 12/08/23 12/08/23 Range/Units 15:15 15:37 16:23 WBC 29.76 H* (4.50-11.00) K/uL RBC 3.83 L (4.00-5.20) m/uL Hgb 10.1 L (12.0-16.0) gm/dL Hct 32.8 L (33.0-51.0) % MCV 86 (80-100) fL MCH 26 (26-34) pg MCHC 31 L (32-36) gm/dL RDW Coeff of Lynette 18.0 H (11.5-15.5) % Plt Count 412 (140-440) K/uL Neut % (Auto) 84.3 H (42.0-72.0) % Lymph % (Auto) 9.5 L (20-44) % School[place] % (Auto) 5.2 (0.0-11.0) % Eos % (Auto) 0.1 (0.0-7.0) % Baso % (Auto) 0.1 (0.0-3.0) % Neut # (Auto) 25.10 H (1.7-7.0) K/uL Lymph # (Auto) 2.80 (0.90-2.90) K/uL Schoolcraft # (Auto) 1.50 H (0.00-0.90) K/UL Eos # (Auto) 0.00 (0.00-0.50) K/uL Baso # (Auto) 0.00 (0.00-0.30) K/uL Abs Immat Gran (auto) 0.20 (0.00-0.30) K/uL Imm/Tot Granulo (auto) 0.8 % Diff Slide Review Acceptable Review (Acceptable) VBG pH 7.558 H (7.32-7.43) VBG pCO2 33 L (40-50) mmHG VBG pO2 82.1 H (25-47) mmHG VBG HCO3 29 H (21-28) mmol/L Sodium 129 L (135-149) mmol/L Potassium 2.6 L* (3.6-5.1) mmol/L Chloride 92 L (96-114) mmol/L Carbon Dioxide 27 (20-32) mmol/L Anion Gap 10 (7-15) mEq/L BUN 21 (7-30) mg/dL Creatinine 0.3 L (0.5-1.5) mg/dL Estimated Creat Clear 39.59 Estimated GFR 110 ml/min Glucose 90 (60-115) mg/dL Lactate 0.9 (0.5-1.9) mmol/L Calcium 8.1 L (8.4-10.6) mg/dL Magnesium 1.9 (1.5-2.6) mg/dL Total Bilirubin 1.9 H (0.1-1.5) mg/dL AST 20 (12-35) U/L ALT 20 (4-35) U/L Alkaline Phosphatase 215 H (40-150) U/L Troponin I 0.07 H* (0.01-0.04) ng/mL C-Reactive Protein 32.5 H (0.5-1.0) mg/dL Total Protein 5.0 L (6.0-8.3) g/dL Albumin 2.6 L (3.3-5.0) g/dL Procalcitonin 0.53 H (<0.50) ng/mL Urine Color Alana A (Yellow) Urine Appearance Cloudy A (Clear) Urine pH 6.0 (5.0-8.5) Ur Specific [place] 1.025 (1.000-1.030) Urine Protein 2+ A (Negative) Urine Glucose (UA) Negative (Negative) Urine Ketones 3+ A (Negative) Urine Blood Trace-intact A (Negative) Urine Nitrite Negative (Negative) Urine Bilirubin 2+ A (Negative) Urine Urobilinogen 4.0 A (0.2-1.0) Ur Leukocyte Esterase 3+ A (Negative) Urine RBC 2-5 A (0-2) Urine WBC >100 A (0-5) Ur Squamous Epith Cells None (None-Few) Amorphous Sediment Many A (None) Urine Bacteria Many A (None) SARS-CoV-2 (PCR) POSITIVE SARS-CoV-2 A (Negative) Influenza Type A (PCR) Negative PCR FLU A (Negative) Influenza Type B (PCR) Negative PCR FLU B (Negative) RSV (PCR) Negative PCR RSV (Negative) SARS-CoV-2 Ag (Rapid) (Negative) Lab Acknowledgement 12/08/23 12/08/23 Range/Units 16:54 17:06 WBC (4.50-11.00) K/uL RBC (4.00-5.20) m/uL Hgb (12.0-16.0) gm/dL Hct (33.0-51.0) % MCV (80-100) fL MCH (26-34) pg MCHC (32-36) gm/dL RDW Coeff of Lynette (11.5-15.5) % Plt Count (140-440) K/uL Neut % (Auto) (42.0-72.0) % Lymph % (Auto) (20-44) % Schoolcraft % (Auto) (0.0-11.0) % Eos % (Auto) (0.0-7.0) % Baso % (Auto) (0.0-3.0) % Neut # (Auto) (1.7-7.0) K/uL Lymph # (Auto) (0.90-2.90) K/uL Schoolcraft # (Auto) (0.00-0.90) K/UL Eos # (Auto) (0.00-0.50) K/uL Baso # (Auto) (0.00-0.30) K/uL Abs Immat Gran (auto) (0.00-0.30) K/uL Imm/Tot Granulo (auto) % Diff Slide Review (Acceptable) VBG pH (7.32-7.43) VBG pCO2 (40-50) mmHG VBG pO2 (25-47) mmHG VBG HCO3 (21-28) mmol/L Sodium (135-149) mmol/L Potassium (3.6-5.1) mmol/L Chloride (96-114) mmol/L Carbon Dioxide (20-32) mmol/L Anion Gap (7-15) mEq/L BUN (7-30) mg/dL Creatinine (0.5-1.5) mg/dL Estimated Creat Clear Estimated GFR ml/min Glucose (60-115) mg/dL Lactate (0.5-1.9) mmol/L Calcium (8.4-10.6) mg/dL Magnesium (1.5-2.6) mg/dL Total Bilirubin (0.1-1.5) mg/dL AST (12-35) U/L ALT (4-35) U/L Alkaline Phosphatase (40-150) U/L Troponin I (0.01-0.04) ng/mL C-Reactive Protein (0.5-1.0) mg/dL Total Protein (6.0-8.3) g/dL Albumin (3.3-5.0) g/dL Procalcitonin (<0.50) ng/mL Urine Color (Yellow) Urine Appearance (Clear) Urine pH (5.0-8.5) Ur Specific [place] (1.000-1.030) Urine Protein (Negative) Urine Glucose (UA) (Negative) Urine Ketones (Negative) Urine Blood (Negative) Urine Nitrite (Negative) Urine Bilirubin (Negative) Urine Urobilinogen (0.2-1.0) Ur Leukocyte Esterase (Negative) Urine RBC (0-2) Urine WBC (0-5) Ur Squamous Epith Cells (None-Few) Amorphous Sediment (None) Urine Bacteria (None) SARS-CoV-2 (PCR) (Negative) Influenza Type A (PCR) (Negative) Influenza Type B (PCR) (Negative) RSV (PCR) (Negative) SARS-CoV-2 Ag (Rapid) POSITIVE A (Negative) Lab Acknowledgement Test Added Imaging Data CT Chest/Ab/Pelvis: Attestation: I have reviewed the pertinent imaging results. Radiologist's impression: Patient: DAYNA LIVINGSTON Facility:?[facility] Patient ID:?[id number] Site Patient ID:?[id number]. Site :?[id number] Study:?CT Chest/Abd/Pelvis W/O-12/08/2023 5:07:10 PM Ordering Physician:DIMAS Final Report: INDICATION: Fever. TECHNIQUE: CT chest, abdomen, and pelvis without contrast. COMPARISON: CT PE chest 09/02/2023. CT abdomen and pelvis 08/27/2023. FINDINGS: CHEST: Lungs and pleura: Bibasilar atelectasis. Otherwise no acute infiltrates. No suspicious nodules. No pleural effusions or pneumothorax. Cardiovascular structures: Heart size is normal. Thoracic aorta and main pulmonary artery are normal in caliber. Stable enlarged main pulmonary artery, suggestive of underlying pulmonary hypertension. Aortic, mitral annular, and coronary artery calcifications. Mediastinum and farooq: No mass or adenopathy. Chest wall and axilla: No mass or adenopathy. Bones: Diffuse osteopenia. Scoliosis with thoracolumbar spinal fusion. ABDOMEN AND PELVIS: Liver: Unremarkable. Gallbladder and bile ducts: Status post cholecystectomy. Spleen: Unremarkable. Adrenal glands: Unremarkable. Pancreas: Atrophic. Kidneys: Bilateral nonobstructive renal calculi, including 15 mm calculus in the right renal pelvis. No hydronephrosis. GI tract: Seton in the right perirectal region with resolution of previously seen perirectal abscess. Persistent but decreased adjacent subcutaneous soft tissue gas. Colonic diverticulosis without evidence of diverticulitis. No evidence of obstruction. Lymph nodes: Unremarkable. Vascular structures: Scattered atherosclerotic calcifications. Stable ectatic infrarenal abdominal aorta measuring 2.2 cm. Miscellaneous: Deep right ischial decubitus ulcer. No free air or significant free fluid. Pelvic organs: Cristobal catheter in place. Stable 2.7 cm low-density lesion in the left adnexal, presumably an ovarian cyst. Bones: Diffuse osteopenia. Scoliosis with thoracolumbar spinal fusion. Increased erosion of the right ischial tuberosity. IMPRESSION: 1. Deep right ischial decubitus ulcer with increased erosion of the right ischial tuberosity, concerning for osteomyelitis. 2. Seton in the right perirectal region with resolution of previously seen perirectal abscess. Persistent but decreased adjacent subcutaneous soft tissue gas. 3. Bilateral nonobstructive nephrolithiasis. 4. Bibasilar atelectasis. Otherwise no acute infiltrates. Please note that all CT scans at this facility use dose modulation, iterative reconstruction, and/or weight-based dosing when appropriate to reduce radiation dose to as low as reasonably achievable. Dictated by Willy Adame MD @ 12/09/2023 12:44:02 AM (Electronic Signature) Imaging reviewed at this time, report was not available last evening during my shift. Hospitalist is aware. ECG Data Attestation: I personally reviewed and interpreted this ECG as follows: (Sinus tachycardia with PVC seen, rate 122 beats per minute. Nonspecific ST changes. QT corrected 475 milliseconds.) Prior ECG tracings: available for review (Unchanged since EKG compared to from 08/2023.) Critical Care Time Critical Care Time Critical Care Time: No Discharge Plan Discharge Clinical Impression: Neurogenic bladder, Acute hypokalemia Sepsis Qualifiers: Sepsis type: sepsis due to unspecified organism UTI (urinary tract infection) Qualifiers: Urinary tract infection type: acute cystitis Hematuria presence: without hematuria Qualified Code(s): N30.00 - Acute cystitis without hematuria Patient Disposition: Admitted As Observation
--- NOTE | 2023-12-08 15:19 | CT_ITS ---
Patient: DAYNA LIVINGSTON Facility:?[facility] Patient ID:?[id number] Site Patient ID:?[id number]. Site :?[id number] Study:?CT-Chest/Abd/Pelvis W/O-12/08/2023 5:07:10 PM Ordering Physician:DIMAS Final Report: INDICATION: Fever. TECHNIQUE: CT chest, abdomen, and pelvis without contrast. COMPARISON: CT PE chest 09/02/2023. CT abdomen and pelvis 08/27/2023. FINDINGS: CHEST: Lungs and pleura: Bibasilar atelectasis. Otherwise no acute infiltrates. No suspicious nodules. No pleural effusions or pneumothorax. Cardiovascular structures: Heart size is normal. Thoracic aorta and main pulmonary artery are normal in caliber. Stable enlarged main pulmonary artery, suggestive of underlying pulmonary hypertension. Aortic, mitral annular, and coronary artery calcifications. Mediastinum and farooq: No mass or adenopathy. Chest wall and axilla: No mass or adenopathy. Bones: Diffuse osteopenia. Scoliosis with thoracolumbar spinal fusion. ABDOMEN AND PELVIS: Liver: Unremarkable. Gallbladder and bile ducts: Status post cholecystectomy. Spleen: Unremarkable. Adrenal glands: Unremarkable. Pancreas: Atrophic. Kidneys: Bilateral nonobstructive renal calculi, including 15 mm calculus in the right renal pelvis. No hydronephrosis. GI tract: Seton in the right perirectal region with resolution of previously seen perirectal abscess. Persistent but decreased adjacent subcutaneous soft tissue gas. Colonic diverticulosis without evidence of diverticulitis. No evidence of obstruction. Lymph nodes: Unremarkable. Vascular structures: Scattered atherosclerotic calcifications. Stable ectatic infrarenal abdominal aorta measuring 2.2 cm. Miscellaneous: Deep right ischial decubitus ulcer. No free air or significant free fluid. Pelvic organs: Cristobal catheter in place. Stable 2.7 cm low-density lesion in the left adnexal, presumably an ovarian cyst. Bones: Diffuse osteopenia. Scoliosis with thoracolumbar spinal fusion. Increased erosion of the right ischial tuberosity. IMPRESSION: 1. Deep right ischial decubitus ulcer with increased erosion of the right ischial tuberosity, concerning for osteomyelitis. 2. Seton in the right perirectal region with resolution of previously seen perirectal abscess. Persistent but decreased adjacent subcutaneous soft tissue gas. 3. Bilateral nonobstructive nephrolithiasis. 4. Bibasilar atelectasis. Otherwise no acute infiltrates. Please note that all CT scans at this facility use dose modulation, iterative reconstruction, and/or weight-based dosing when appropriate to reduce radiation dose to as low as reasonably achievable. Dictated by Willy Adame MD @ 12/09/2023 12:44:02 AM Signed by:?Willy Adame MD @12/09/2023 12:44:02 AM (Electronic Signature)
--- NOTE | 2023-12-08 15:32 | ED.NURSE ---
Pt has bed sore to left ankle and left fifth toe, per facility documentation. MD and RN updated.
[2023-12-08] MEDS: 0.9 % SODIUM CHLORIDE 1000 ml 1,000 ML IV (15:47)
[2023-12-08 15:51] LABS: HCO3 VBG 29 mmol/L (21-28); PCO2 VBG 33 mmHG (40-50); PO2 VBG 82.1 mmHG (25-47); pH VBG 7.558 (7.32-7.43)
[2023-12-08 15:53] LABS: Lactate* 0.9 mmol/L (0.5-1.9)
[2023-12-08 16:02] LABS: Basophils Percent Auto 0.1 % (0.0-3.0); Eosinophils Percent Auto 0.1 % (0.0-7.0); Hematocrit 32.8 % (33.0-51.0); Hemoglobin* 10.1 gm/dL (12.0-16.0); Immature Granulocytes Pct Auto 0.8 %; Lymphocytes Percent Auto 9.5 % (20-44); Mean Corpuscular HGB Conc 31 gm/dL (32-36); Mean Corpuscular Hemoglobin 26 pg (26-34); Mean Corpuscular Volume 86 fL (80-100); Monocytes Percent Auto 5.2 % (0.0-11.0); Neutrophils Percent Auto 84.3 % (42.0-72.0); Platelet Count* 412 K/uL (140-440); Red Blood Count 3.83 m/uL (4.00-5.20)
[2023-12-08 16:07] LABS: Albumin* 2.6 g/dL (3.3-5.0); Chloride* 92 mmol/L (96-114); Sodium* 129 mmol/L (135-149)
[2023-12-08 16:10] LABS: Alkaline Phosphatase* 215 U/L (40-150); Anion Gap 10 mEq/L (7-15); Aspartate Amino Transferase* 20 U/L (12-35); Bilirubin Total* 1.9 mg/dL (0.1-1.5); Carbon Dioxide* 27 mmol/L (20-32); Creatinine* 0.3 mg/dL (0.5-1.5); Est. Creatinine Clearance* 39.59; Estimated Glomerular Filt Rate 110 ml/min
[2023-12-08 16:11] LABS: Alanine Aminotransferase* 20 U/L (4-35); Blood Urea Nitrogen* 21 mg/dL (7-30); Calcium* 8.1 mg/dL (8.4-10.6); Glucose* 90 mg/dL (60-115)
[2023-12-08 16:14] LABS: White Blood Count* 29.76 K/uL (4.50-11.00)
[2023-12-08 16:15] LABS: Slide Review Reflex Yes
[2023-12-08 16:17] LABS: Potassium* 2.6 mmol/L (3.6-5.1)
[2023-12-08 16:17] LABS: PCR FLU A Negative PCR FLU A (Negative); PCR FLU B Negative PCR FLU B (Negative); PCR RSV Negative PCR RSV (Negative); SARS PCR* POSITIVE SARS-CoV-2 (Negative)
[2023-12-08 16:24] LABS: Troponin I* 0.07 ng/mL (0.01-0.04)
[2023-12-08 16:27] LABS: Procalcitonin* 0.53 ng/mL (<0.50)
[2023-12-08 16:28] LABS: Appearance Urine Cloudy (Clear); Bilirubin Urine 2+ (Negative); Blood Urine Trace-intact (Negative); Color Urine Amber (Yellow); Glucose Urine Negative (Negative); Ketones Urine 3+ (Negative); Leukocyte Esterase Urine 3+ (Negative); Nitrite Urine Negative (Negative); Protein Urine 2+ (Negative); Specific Gravity Urine 1.025 (1.000-1.030)
[2023-12-08 16:46] LABS: Bacteria Urine Many; WBC Urine >100 (0-5)
[2023-12-08 16:47] LABS: Amorphous Sediment Urine Many
--- NOTE | 2023-12-08 16:56 | RESP.RT ---
Pt initally seen and declined wearing BIPAP. Wanted hers from [facility] That is a rental unit to the [facility] so doubt that they would give it out. Set our unit up to her previous settings she used on her last admission with us. She agrees to wear it now.
[2023-12-08 16:58] LABS: Slide Review Acceptable Review (Acceptable)
[2023-12-08] MEDS: LACTATED RINGERS 1000 ML 1,000 ML 500 ML IV (17:09)
[2023-12-08 17:19] LABS: C Reactive Protein* 32.5 mg/dL (0.5-1.0)
[2023-12-08 17:29] LABS: Magnesium* 1.9 mg/dL (1.5-2.6)
[2023-12-08 17:29] LABS: SARS Antigen* POSITIVE (Negative)
--- NOTE | 2023-12-08 17:38 | ED.NURSE ---
Report given to Darya Wells RN. Pt will go Rm [id number].
--- NOTE | 2023-12-08 17:43 | ED.NURSE ---
Low sodium tray ordered for pt to be sent to med surg.
[2023-12-08] MEDS: CEFEPIME HCL 2 GM in 0.9 % SODIUM CHLORIDE Mini-bag 100 ML IVPB (18:00)
[2023-12-08] MEDS: OXYCODONE 5 MG TABLET 7.5 MG PO ×2 (18:35→22:36)
--- NOTE | 2023-12-08 19:56 | PC.NURSE ---
Nursing Care Hours: [id number] Pt arrived from ED on stretcher, assisted onto bed. spo2 stable on RA. Temporal temp 101, HR 120's. No c/o chest pain. Nausea over past couple days has prevented adequate food intake. Pain to R leg 9/10 with spasms, treated per eMAR and repositioning. Pt has wound vac at the assisted living but did not bring it. Wound dressing still in place. IV occluded upon arrival, bruised and puffy. Fluids paused and SL at this time. Cristobal patent and draining dark ankit u/o. Tele initiated, showing NSR with PAC. Pt unable to complete admission data assessment d/t nausea, pain, and fatigue. 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 Learning Consultant unable to get head to toe done d/t pt condition. Allowed pt a break to rest, report given to oncoming nurse.
--- NOTE | 2023-12-08 20:46 | P.IMHP_ITS ---
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 + COVID about 3 weeks ago. ER Course and Findings: - HR 120s (baseline 90-100), Tmax 101, WBC 29K - CT C/A/P performed; formal radiology read pending - + UA, urine and blood cultures pending - C-Diff ordered, pending - K of 2.6, replacement ordered - treated with IVFs, Cipro and Cefepime given allergies and recent UCx results Patient sees Dr. Mckeon locally for primary care. Histories updated below. Review of Systems Status of ROS: Reports: 10 or more systems reviewed and unremarkable except as noted in History and below Narrative: - has not had indwelling Cristobal changed in 2 months, would like this replaced [facility] Medical History Diarrhea ?R19.7 - Diarrhea, unspecified (ICD-10) Intravenous infiltration ?T80.1XXA - Vascular complications following infusion, transfusion and therapeutic injection, initial encounter (ICD-10) Neurogenic bladder ?N31.9 - Neuromuscular dysfunction of bladder, unspecified (ICD-10) Chronic, continuous use of opioids ?F11.90 - Opioid use, unspecified, uncomplicated (ICD-10) Chronic steroid use 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, stage 4 ?L89.44 - Pressure ulcer of contiguous site of back, buttock and hip, stage 4 (ICD-10) Rheumatoid arthritis ?M06.9 - Rheumatoid arthritis, unspecified (ICD-10) HTN (hypertension) ?I10 - Essential (primary) hypertension (ICD-10) Cristobal catheter in place ?Z97.8 - Presence of other specified devices (ICD-10) Sleep apnea ?G47.30 - Sleep apnea, unspecified (ICD-10) Paraplegia ?G82.20 - Paraplegia, unspecified (ICD-10) Acute on chronic anemia ?D64.9 - Anemia, unspecified (ICD-10) Anemia ?D64.9 - Anemia, unspecified (ICD-10) Osteomyelitis ?M86.9 - Osteomyelitis, unspecified (ICD-10) Paraplegia ?G82.20 - Paraplegia, unspecified (ICD-10) Chronic pain ?G89.29 - Other chronic pain (ICD-10) Tubular adenoma of colon ?D12.6 - Benign neoplasm of colon, unspecified (ICD-10) 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 - Acute transverse myelitis in demyelinating disease of central nervous system (ICD-10) Septic shock ?A41.9 - Sepsis, unspecified organism (ICD-10) ?R65.21 - Severe sepsis with septic shock (ICD-10) Recurrent urinary tract infection ?N39.0 - Urinary tract infection, site not specified (ICD-10) Osteoporosis ?M81.0 - Age-related osteoporosis without current pathological fracture (ICD- 10) History of methicillin resistant Staphylococcus aureus infection ?Z86.14 - Personal history of Methicillin resistant Staphylococcus aureus in fection (ICD-10) Surgical History Status post debridement ?Z98.890 - Other specified postprocedural states (ICD-10) Social History (Updated 12/08/23 @ 23:55 by Lucía Espinoza MD) Narrative: Mary has recently been living at [facility], daughter Elvi (MDM if needed) is hoping to bring her home with realtime reporter caregiving. has cognitive impairment. At this time (12/08/23), she is requesting DNR/DNI status. Nonsmoker, no ETOH use. What is your current living situation?: I presently have a place to live Problems where you live: no known problems Problems where you live details: NA In the past 12 months, utilities in danger of being shut off: unable to answer In past 12 months, lack of transportation kept you from medical appts, meetings, work, or getting things needed for daily living: unable to answer In the past 12 mos, have been you worried that your food would run out before you had money to buy more?: unable to answer In the past 12 mos, the food you bought just didn't last and you didn't have money to buy more?: unable to answer Highest level of school completed/degree received: decline to answer Smoking Status: Never smoker Do you use any of these nicotine containing products: None and E-Cigarettes Second hand tobacco smoke exposure: No How often do you have a drink containing alcohol: never How often do you have six or more drinks on one occasion: Never AUDIT-C Alcohol total score: 0 Non-prescribed substance use: denies use Caffeine: No How often does anyone, including family, friends and others, physically hurt you : unable to answer How often does anyone, including family, friends and others, insult or talk down to you: unable to answer How often does anyone, including family, friends and others, threaten you with harm: unable to answer How often does anyone, including family, friends and others, scream or curse at you: unable to answer Little interest or pleasure in doing things: several days Feeling down, depressed, or hopeless: several days service: No Meds Home Medications and Allergies Home Medications Medication Instructions Recorded Confirmed Type multivitamin (Daily Multi-Vitamin 1 tab PO DAILY 07/10/22 12/08/23 History tablet) bisacodyl 10 mg rectal suppository 10 mg NC BID PRN 01/13/23 12/08/23 History (Gentle Laxative (bisacodyl)) zinc sulfate 50 mg zinc (220 mg) 100 mg PO DAILY 01/13/23 12/08/23 History capsule (Orazinc) ascorbate calcium (vitamin C) 500 500 mg PO DAILY 05/30/23 12/08/23 History mg tablet metoprolol succinate 50 mg 50 mg PO DAILY 08/31/23 12/08/23 History tablet,extended release 24 hr acetaminophen 500 mg capsule 1,000 mg PO Q8H PRN 12/08/23 12/08/23 History benzonatate 100 mg capsule 100 mg PO TID PRN 12/08/23 12/08/23 History carboxymethylcellulose sodium 0.5 1 drp ophthalmic (eye) TID 12/08/23 12/08/23 History % eye drops in a dropperette (Refresh Plus) miconazole nitrate 2 % topical 1 applic topical BID 12/08/23 12/08/23 History powder oxycodone 5 mg tablet 7.5 mg PO QID PRN pain 12/08/23 12/08/23 History Allergies Allergy/AdvReac Type Severity Reaction Status Date / Time vancomycin Allergy Severe Hives Verified 12/08/23 15:33 piperacillin Allergy Intermediate Rash Verified 12/08/23 15:33 tazobactam Allergy Intermediate Rash Verified 12/08/23 15:33 Exam Narrative: Exam Narrative: GEN: Alert and oriented, appears chronically ill but comfortable in bed HEENT: EOMIs bilaterally, no scleral icterus CV: Sinus tachycardia without concerning murmurs R: No concerning wheezing, decreased bibasilar breath sounds Ab: Soft and nondistended, tolerates exam Skin: No concerns on exposed skin, patient declined exam of wound given discomfort with rolling Neuro: Baseline per comorbidities Psych: Appropriate Const: Vital Signs, click to edit/add: Vital Signs - 24 hr 12/08/23 15:12 12/08/23 15:17 12/08/23 15:18 Temperature 99.7 F H 99.7 F H Pulse Rate Pulse Rate [Pulse Oximeter] 128 H 120 H Respiratory Rate 16 28 H Blood Pressure Blood Pressure [Le ft Radial Artery] 131/55 L Blood Pressure [Le ft Upper Arm] 124/53 L Pulse Oximetry 94 90 90 Oxygen Delivery Me thod Room Air Room Air Fraction of Inspir ed Oxygen 12/08/23 15:32 12/08/23 16:00 12/08/23 16:56 Temperature Pulse Rate 125 H 118 H Pulse Rate [Pulse Oximeter] Respiratory Rate 18 Blood Pressure 131/55 L Blood Pressure [Le ft Radial Artery] Blood Pressure [Le ft Upper Arm] Pulse Oximetry 93 95 Oxygen Delivery Me thod Fraction of Inspir ed Oxygen 21 12/08/23 17:02 12/08/23 17:32 12/08/23 17:55 Temperature 99.7 F H Pulse Rate 122 H 117 H Pulse Rate [Pulse Oximeter] 112 H Respiratory Rate 18 18 18 Blood Pressure 150/58 H 140/66 H Blood Pressure [Le ft Radial Artery] Blood Pressure [Le ft Upper Arm] 124/53 L Pulse Oximetry 93 94 Oxygen Delivery Me thod Fraction of Inspir ed Oxygen 12/08/23 18:07 12/08/23 18:07 Temperature 101 F H Pulse Rate Pulse Rate [Pulse Oximeter] 120 H Respiratory Rate 18 Blood Pressure Blood Pressure [Le ft Radial Artery] 122/80 Blood Pressure [Le ft Upper Arm] Pulse Oximetry 95 Oxygen Delivery Me thod Room Air Fraction of Inspir ed Oxygen Hospitalist - H&P: Result Labs Labs: Short CBC 12/08/23 Range/Units 15:37 WBC 29.76 H* (4.50-11.00) K/uL Hgb 10.1 L (12.0-16.0) gm/dL Hct 32.8 L (33.0-51.0) % Plt Count 412 (140-440) K/uL BMP 12/08/23 15:37 Sodium 129 L Potassium 2.6 L* Chloride 92 L Carbon Dioxide 27 BUN 21 Creatinine 0.3 L Glucose 90 Calcium 8.1 L Cardiac Enzymes 12/08/23 Range/Units 15:37 Troponin I 0.07 H* (0.01-0.04) ng/mL Liver Function 12/08/23 Range/Units 15:37 Total Bilirubin 1.9 H (0.1-1.5) mg/dL AST 20 (12-35) U/L ALT 20 (4-35) U/L Alkaline Phosphatase 215 H (40-150) U/L Albumin 2.6 L (3.3-5.0) g/dL Urine 12/08/23 Range/Units 16:23 Urine Color Alana A (Yellow) Urine Appearance Cloudy A (Clear) Urine pH 6.0 (5.0-8.5) Ur Specific Bath 1.025 (1.000-1.030) Urine Protein 2+ A (Negative) Urine Glucose (UA) Negative (Negative) Assessment and Plan Assessment and plan (1) Sepsis: Problem comment: - HR >120, WBC 29, fever - Recent COVID, unlikely that this is the cause of current illness (urine most likely source given history) - Cipro and cefepime empirically initiated in the ER (12/08) - awaiting C diff and imaging results Status: Acute (2) Acute hypokalemia: Problem comment: - IV replacement and follow Status: Acute (3) UTI (urinary tract infection): Status: Acute (4) Diarrhea: Problem comment: - acute on chronic, no history of C Diff (test pending at this time) Status: Acute (5) CO2 retention: Problem comment: - long history of sever CO2 retention, cannot receive supplemental oxygen without BiPAP, RT aware and following Status: Acute (6) Neurogenic bladder: Problem comment: - chronic indwelling catheter Status: Chronic (7) 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, stage 4: Problem comment: - Chronic right ischial tuberosity wound - wound VAC did not come to ED [facility]; will perform wet to dry dressings and place wound care consult Status: Chronic (8) Rheumatoid arthritis: Problem comment: - on chronic daily prednisone 10 mg, continue Status: Acute (9) Paraplegia: Problem comment: - since age 6; 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
[2023-12-08] MEDS: SODIUM CHLORIDE 0.9 % (FLUSH) 10 ML SYRINGE 5 ML IVF (21:38)
[2023-12-08] MEDS: MORPHINE 4 MG/ML INJ IVP (21:38)
[2023-12-08] MEDS: LACTATED RINGERS 1000 ML 500 ML IV ×2 (21:47→23:11)
[2023-12-08] MEDS: GABAPENTIN 300 MG CAPSULE PO (22:38)
[2023-12-08] MEDS: POTASSIUM CHLORIDE 10 MEQ/100 ML PIGGYBACK 100 MEQ IVPB (23:20)
[2023-12-09] VITALS (7 sets, daily range): BP systolic 112–135; BP diastolic 45–75; PULSE 80–114; RESP 18–20; TEMP 35.9–37.4; O2SAT 88–95
[2023-12-09] MEDS: CIPROFLOXACIN 400 MG/200 ML PIGGYBACK 200 MG IVPB ×2 (00:35→11:52)
[2023-12-09] MEDS: POTASSIUM CHLORIDE 10 MEQ/100 ML PIGGYBACK 100 MEQ IVPB (01:31)
[2023-12-09] MEDS: POTASSIUM CHLORIDE 10 MEQ/100 ML PIGGYBACK 70 MEQ IVPB ×4 (03:10→08:38)
[2023-12-09] MEDS: LACTATED RINGERS 1000 ML 1,000 ML 125 ML IV ×2 (04:08→16:47)
[2023-12-09] MEDS: OXYCODONE 5 MG TABLET 7.5 MG PO ×3 (04:59→19:38)
[2023-12-09] MEDS: CEFEPIME HCL 1 GM in 0.9 % SODIUM CHLORIDE Mini-bag 100 ML IVPB ×3 (05:29→22:20)
[2023-12-09 06:51] LABS: HCO3 VBG 27 mmol/L (21-28); PCO2 VBG 39 mmHG (40-50); PO2 VBG 51.7 mmHG (25-47); pH VBG 7.449 (7.32-7.43)
[2023-12-09 07:01] LABS: Basophils Percent Auto 0.1 % (0.0-3.0); Eosinophils Percent Auto 0.6 % (0.0-7.0); Hematocrit 29.6 % (33.0-51.0); Hemoglobin* 9.1 gm/dL (12.0-16.0); Immature Granulocytes Pct Auto 1.1 %; Lymphocytes Percent Auto 10.5 % (20-44); Mean Corpuscular HGB Conc 31 gm/dL (32-36); Mean Corpuscular Hemoglobin 27 pg (26-34); Mean Corpuscular Volume 87 fL (80-100); Monocytes Percent Auto 5.6 % (0.0-11.0); Neutrophils Percent Auto 82.1 % (42.0-72.0); Platelet Count* 346 K/uL (140-440); RDW Coefficient of Variation % 17.9 % (11.5-15.5); White Blood Count* 20.03 K/uL (4.50-11.00)
[2023-12-09 07:08] LABS: Albumin* 2.3 g/dL (3.3-5.0); Chloride* 98 mmol/L (96-114); Potassium* 3.8 mmol/L (3.6-5.1); Sodium* 128 mmol/L (135-149)
[2023-12-09 07:10] LABS: Bilirubin Total* 1.3 mg/dL (0.1-1.5); Creatinine* 0.2 mg/dL (0.5-1.5); Est. Creatinine Clearance* 34.38; Estimated Glomerular Filt Rate 121 ml/min
[2023-12-09 07:11] LABS: Alanine Aminotransferase* 16 U/L (4-35); Alkaline Phosphatase* 163 U/L (40-150); Anion Gap 5 mEq/L (7-15); Aspartate Amino Transferase* 21 U/L (12-35); Blood Urea Nitrogen* 14 mg/dL (7-30); Carbon Dioxide* 25 mmol/L (20-32); Glucose* 75 mg/dL (60-115); Total Protein* 4.6 g/dL (6.0-8.3)
[2023-12-09 07:12] LABS: Calcium* 7.7 mg/dL (8.4-10.6); Magnesium* 1.7 mg/dL (1.5-2.6)
[2023-12-09 07:28] LABS: Procalcitonin* 0.37 ng/mL (<0.50)
[2023-12-09 07:46] LABS: Troponin I* 0.06 ng/mL (0.01-0.04)
[2023-12-09 07:49] LABS: Slide Review Reflex No
--- NOTE | 2023-12-09 07:59 | P.IMPN_ITS ---
Progress Note: A&P Assessment and plan (1) Sepsis: Problem details: - sepsis markers have improved. Her blood pressure is now normal. Her heart rate is now normal. Her T-max is 99.3? 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, stage 4: Problem details: - Chronic right ischial tuberosity wound - wound VAC did not come to ED from [facility] [place] on 12/08; will perform wet to dry dressings and place wound care consult - CT of her pelvis mentions increased erosion of the right ischial tuberosity so this could represent an acute on chronic osteomyelitis picture - awaiting surgical consult/wound care consult bedside Status: Chronic (3) UTI (urinary tract infection): Problem details: Gram-negative rods, awaiting culture and sensitivity Status: Acute (4) Acute hypokalemia: Problem details: - IV replacement and follow Status: Acute (5) Diarrhea: Problem details: - acute on chronic, no history of C Diff (test pending at this time) Status: Acute (6) CO2 retention: Problem details: - long history of sever CO2 retention, cannot receive supplemental oxygen without BiPAP, RT aware and following Status: Acute (7) Neurogenic bladder: Problem details: - chronic indwelling catheter Status: Chronic (8) Rheumatoid arthritis: Problem details: - on chronic daily prednisone 10 mg, continue Status: Acute (9) Paraplegia: Problem details: - since age 6; 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 -less weak, fatigue, tired. -c/o of right buttock pain All of her labs were a been reviewed. Most of thing is down trending. Her potassium has improved. Blood cultures are negative. Her urine cultures growing Gram-negative rods. Admission CAP CT reviewed: IMPRESSION: 1. Deep right ischial decubitus ulcer with increased erosion of the right ischial tuberosity, concerning for osteomyelitis. 2. Seton in the right perirectal region with resolution of previously seen perirectal abscess. Persistent but decreased adjacent subcutaneous soft tissue gas. 3. Bilateral nonobstructive nephrolithiasis. 4. Bibasilar atelectasis. Otherwise no acute infiltrates. Objective: resting comfortably on room air. can hold conversation. Vitals: see above Lungs: Clear. Cardiac: S1S2. wounds not evaluated. Disposition/Potential discharge - Likely to return to previous living situation (SNF) Exam Const: Vital Signs, click to edit/add: Vital Signs - 24 hr 12/08/23 15:12 12/08/23 15:17 12/08/23 15:18 Temperature 99.7 F H 99.7 F H Pulse Rate Pulse Rate [Pulse Oximeter] 128 H 120 H Respiratory Rate 16 28 H Blood Pressure Blood Pressure [Le ft Radial Artery] 131/55 L Blood Pressure [Le ft Upper Arm] 124/53 L Pulse Oximetry 94 90 90 Oxygen Delivery Me thod Room Air Room Air Fraction of Inspir ed Oxygen 12/08/23 15:32 12/08/23 16:00 12/08/23 16:56 Temperature Pulse Rate 125 H 118 H Pulse Rate [Pulse Oximeter] Respiratory Rate 18 Blood Pressure 131/55 L Blood Pressure [Le ft Radial Artery] Blood Pressure [Le ft Upper Arm] Pulse Oximetry 93 95 Oxygen Delivery Me thod Fraction of Inspir ed Oxygen 21 12/08/23 17:02 12/08/23 17:32 12/08/23 17:55 Temperature 99.7 F H Pulse Rate 122 H 117 H Pulse Rate [Pulse Oximeter] 112 H Respiratory Rate 18 18 18 Blood Pressure 150/58 H 140/66 H Blood Pressure [Le ft Radial Artery] Blood Pressure [Le ft Upper Arm] 124/53 L Pulse Oximetry 93 94 Oxygen Delivery Me thod Fraction of Inspir ed Oxygen 12/08/23 18:07 12/08/23 18:07 12/08/23 23:00 Temperature 101 F H Pulse Rate 114 H Pulse Rate [Pulse Oximeter] 120 H Respiratory Rate 18 Blood Pressure Blood Pressure [Le ft Radial Artery] 122/80 Blood Pressure [Le ft Upper Arm] Pulse Oximetry 95 Oxygen Delivery Me thod Room Air Fraction of Inspir ed Oxygen 12/08/23 23:00 12/08/23 23:00 Temperature 99.1 F Pulse Rate Pulse Rate [Pulse Oximeter] 110 H 110 H Respiratory Rate 20 20 Blood Pressure Blood Pressure [Le ft Radial Artery] 127/54 L Blood Pressure [Le ft Upper Arm] Pulse Oximetry 97 Oxygen Delivery Me thod Room Air Fraction of Inspir ed Oxygen Labs Labs: Laboratory Results - last 24 hr 12/08/23 12/08/23 12/08/23 15:15 15:37 16:23 WBC 29.76 H* RBC 3.83 L Hgb 10.1 L Hct 32.8 L MCV 86 MCH 26 MCHC 31 L RDW Coeff of Lynette 18.0 H Plt Count 412 Neut % (Auto) 84.3 H Lymph % (Auto) 9.5 L Pettis % (Auto) 5.2 Eos % (Auto) 0.1 Baso % (Auto) 0.1 Neut # (Auto) 25.10 H Lymph # (Auto) 2.80 Pettis # (Auto) 1.50 H Eos # (Auto) 0.00 Baso # (Auto) 0.00 Abs Immat Gran (auto) 0.20 Imm/Tot Granulo (auto) 0.8 Diff Slide Review Acceptable Review VBG pH 7.558 H VBG pCO2 33 L VBG pO2 82.1 H VBG HCO3 29 H Sodium 129 L Potassium 2.6 L* Chloride 92 L Carbon Dioxide 27 Anion Gap 10 BUN 21 Creatinine 0.3 L Estimated Creat Clear 39.59 Estimated GFR 110 Glucose 90 Lactate 0.9 Calcium 8.1 L Magnesium 1.9 Total Bilirubin 1.9 H AST 20 ALT 20 Alkaline Phosphatase 215 H Troponin I 0.07 H* C-Reactive Protein 32.5 H Total Protein 5.0 L Albumin 2.6 L Procalcitonin 0.53 H Urine Color Alana A Urine Appearance Cloudy A Urine pH 6.0 Ur Specific Vernon 1.025 Urine Protein 2+ A Urine Glucose (UA) Negative Urine Ketones 3+ A Urine Blood Trace-intact A Urine Nitrite Negative Urine Bilirubin 2+ A Urine Urobilinogen 4.0 A Ur Leukocyte Esterase 3+ A Urine RBC 2-5 A Urine WBC >100 A Ur Squamous Epith Cells None Amorphous Sediment Many A Urine Bacteria Many A SARS-CoV-2 (PCR) POSITIVE SARS-CoV-2 A Influenza Type A (PCR) Negative PCR FLU A Influenza Type B (PCR) Negative PCR FLU B RSV (PCR) Negative PCR RSV SARS-CoV-2 Ag (Rapid) Lab Acknowledgement 12/08/23 12/08/23 12/09/23 16:54 17:06 06:25 WBC 20.03 H RBC 3.40 L Hgb 9.1 L Hct 29.6 L MCV 87 MCH 27 MCHC 31 L RDW Coeff of Lynette 17.9 H Plt Count 346 Neut % (Auto) 82.1 H Lymph % (Auto) 10.5 L Pettis % (Auto) 5.6 Eos % (Auto) 0.6 Baso % (Auto) 0.1 Neut # (Auto) 16.40 H Lymph # (Auto) 2.10 Pettis # (Auto) 1.10 H Eos # (Auto) 0.10 Baso # (Auto) 0.00 Abs Immat Gran (auto) 0.20 Imm/Tot Granulo (auto) 1.1 Diff Slide Review VBG pH 7.449 H VBG pCO2 39 L VBG pO2 51.7 H VBG HCO3 27 Sodium 128 L Potassium 3.8 Chloride 98 Carbon Dioxide 25 Anion Gap 5 L BUN 14 Creatinine 0.2 L Estimated Creat Clear 34.38 Estimated GFR 121 Glucose 75 Lactate Calcium 7.7 L Magnesium 1.7 Total Bilirubin 1.3 AST 21 ALT 16 Alkaline Phosphatase 163 H Troponin I 0.06 H* C-Reactive Protein 25.0 H Total Protein 4.6 L Albumin 2.3 L Procalcitonin 0.37 Urine Color Urine Appearance Urine pH Ur Specific Vernon Urine Protein Urine Glucose (UA) Urine Ketones Urine Blood Urine Nitrite Urine Bilirubin Urine Urobilinogen Ur Leukocyte Esterase Urine RBC Urine WBC Ur Squamous Epith Cells Amorphous Sediment Urine Bacteria SARS-CoV-2 (PCR) Influenza Type A (PCR) Influenza Type B (PCR) RSV (PCR) SARS-CoV-2 Ag (Rapid) POSITIVE A Lab Acknowledgement Test Added
--- NOTE | 2023-12-09 08:06 | PC.NURSE ---
nurse note: wounds to pt bottom; coccyx 10x17; right of anus 20x10 depth 35; right buttock 25x35 depth 25 - area of tunneling .5x.5 depth 30. critical lab received 0749 from paul of a trop of 0.06.
[2023-12-09] MEDS: ONDANSETRON 2 MG/ML inj 4 MG IVP (08:39)
[2023-12-09] MEDS: METOPROLOL SUCCINATE (XL) 50 MG TAB PO (08:41)
[2023-12-09] MEDS: GABAPENTIN 300 MG CAPSULE PO ×3 (08:41→21:29)
[2023-12-09] MEDS: OMEPRAZOLE 20 MG CAPSULE DR PO ×2 (08:41→21:29)
[2023-12-09] MEDS: predniSONE 5 MG TABLET 10 MG PO (08:42)
[2023-12-09] MEDS: SODIUM CHLORIDE 0.9 % (FLUSH) 10 ML SYRINGE 5 ML IVF ×2 (08:42→21:30)
[2023-12-09] MEDS: LACTOBACILLUS ACIDOPHILUS 1 TABLET 1 TAB PO ×3 (08:42→19:38)
[2023-12-09] MEDS: 0.9 % SODIUM CHLORIDE 1000 ml 1,000 ML 500 ML IV (08:49)
--- NOTE | 2023-12-09 14:19 | PC.SOCIAL ---
Discharge planning: Called [facility] and spoke with nurse, Melvi. Melvi states the family was planning to take her home from their facility today and declined a bed hold as they are planning to take her home from [facility]. Per Melvi, the CPAP she used at their facility was only for use there and because she was not returning to their facility, it was not sent with her to the hospital. Melvi suggested contacting the daughter to see if they have one at home that can be brought to the hospital. Per Melvi, the daughter picked up the wound vac from their facility for use at home today. channel worker to follow up as needed.
--- NOTE | 2023-12-09 15:23 | NUTR.NU ---
RDN with nutrition education related to wounds and increased protein needs. RDN attempted to visit with patient multiple times, however patient not available. RDN will attempt to visit with patient at later date.
--- NOTE | 2023-12-09 15:31 | PC.NURSE ---
End of Shift: Patient is pleasant and cooperative. Reported severe pain in R leg throughout the shift. PRN oxy given 1x. 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 surgeon is to assess dressing needs as WOC SETTER UP is out this week. Sphincter injury is open to air. Air sensing mattress in place. The patient refused to get up to the chair throughout the day. I changed out her delacruz catheter this shift.. patent and draining. Minimal PO intake throughout the day the patient needs assistance with this. This AM reported mild nausea.. zofran was given IV 1x with adequate relief. On tele sinus tachycardia this morning. IV ABX ran throughout the day. Will make needs know with call button. Q2 reposition and check and change if needed. JEANNE VALENTINE BSN
--- NOTE | 2023-12-09 16:59 | RESP.RT ---
Pt seen last ghulam in ED, and declined to use our BIPAP, as she does not like it. Daughter unable to get her unit from [facility]. She did not wear BIPAP last night. I talked to her now, and she states daughter is bringing her unit tonight. Our BIPAP is set up and ready for her use, if her unit does not come this ghulam.
--- NOTE | 2023-12-09 18:00 | XR_ITS ---
Patient: DAYNA LIVINGSTON Facility:?[facility] Patient ID:?[id number] Site Patient ID:?[id number]. Site :?[id number] Study:?XRay-Chest 1V PICC-12/09/2023 7:40:36 PM Ordering Physician:ELISEO Final Report: INDICATION: PICC placement. TECHNIQUE: Chest 1 view(s) COMPARISON: CT chest/abdomen/pelvis dated 12/08/2023. FINDINGS/IMPRESSION: Right PICC tip is in the lower SVC. Cardiomediastinal silhouette and pulmonary vasculature are normal. Lungs are hypoinflated. Streaky bibasilar opacities, likely atelectasis. No large focal consolidation. No significant pleural effusion, no definite pneumothorax. Spinal hardware noted. Dictated by Janee Larkin MD @ 12/09/2023 8:14:12 PM Signed by:?Janee Larkin MD @12/09/2023 8:14:12 PM (Electronic Signature)
--- NOTE | 2023-12-09 18:00 | US_ITS ---
Patient: DAYNA LIVINGSTON Facility:?[facility] Patient ID:?[id number] Site Patient ID:?[id number]. Site :?[id number] Study:?US-Extremity Procedure PICC LINE-12/09/2023 7:23:13 PM Ordering Physician:?DR GALO Final Report: INDICATION: To assess access for the PICC line. Technique: Ultrasound images available during PICC line placement. Findings: Ultrasound images of the jugular vein and the basilic vein are available which reveals patent jugular vein and the basilic vein. Dictated by Abbey Kerns MD @ 12/10/2023 10:22:35 AM Signed by:?Abbey Kerns MD @12/10/2023 10:22:35 AM (Electronic Signature)
[2023-12-09] MEDS: POTASSIUM CHLORIDE 10 MEQ CAPSULE ER 20 MEQ PO (19:37)
--- NOTE | 2023-12-09 19:38 | P.GSCN_ITS ---
History of Present Illness Consult details Date Seen: 12/09/23 Consult date: 12/09/23 Narrative: The patient is a 77-year-old female who was brought in by EMS yesterday from her [facility] facility with fever, malaise and cough. She was hospitalized back in September with sepsis from a perianal abscess and fistula. She underwent drainage at that time and seton placement. She had a complicated postoperative course, having respiratory difficulty requiring long periods of BiPAP. She eventually improved enough to discharge to rehab. She also has a known pressure ulcer to her right buttock and hip with exposed bone. This had been managed with a wound VAC previously. She also is on chronic prednisone for rheumatoid arthritis. Other than not feeling well overall, her right hip wound and buttock wound are at their baseline. There is no increase in pain. Overnight she was admitted and given antibiotics. Blood pressure and heart rate have improved. She was found to have a white blood cell count of 29. She also tested positive for COVID. She was started on Cipro and cefepime. CT scan was obtained which showed gas along the rectum with no persistent abscess. The seton remains in place. Her ischial wound persists with possible worsening of osteomyelitis. She also grew Gram-negative rods from a UA. I was asked to see the patient to evaluate her wounds given her septic picture. Her wounds had been treated with wet to dries in the perianal wound and a wound VAC in the ischial wound. However, her wound VAC did not come with her to the hospital. Nursing staff placed wet to dry in both wounds. She had previously been seen in [facility], however she has not been back since she was in the nursing facility. 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, stage 4 ?L89.44 - Pressure ulcer of contiguous site of back, buttock and hip, stage 4 (ICD-10) Rheumatoid arthritis ?M06.9 - Rheumatoid arthritis, unspecified (ICD-10) HTN (hypertension) ?I10 - Essential (primary) hypertension (ICD-10) Cristobal catheter in place ?Z97.8 - Presence of other specified devices (ICD-10) Sleep apnea ?G47.30 - Sleep apnea, unspecified (ICD-10) Paraplegia ?G82.20 - Paraplegia, unspecified (ICD-10) Acute on chronic anemia ?D64.9 - Anemia, unspecified (ICD-10) Anemia ?D64.9 - Anemia, unspecified (ICD-10) Osteomyelitis ?M86.9 - Osteomyelitis, unspecified (ICD-10) Paraplegia ?G82.20 - Paraplegia, unspecified (ICD-10) Chronic pain ?G89.29 - Other chronic pain (ICD-10) Tubular adenoma of colon ?D12.6 - Benign neoplasm of colon, unspecified (ICD-10) 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 - Acute transverse myelitis in demyelinating disease of central nervous system (ICD-10) Septic shock ?A41.9 - Sepsis, unspecified organism (ICD-10) ?R65.21 - Severe sepsis with septic shock (ICD-10) Recurrent urinary tract infection ?N39.0 - Urinary tract infection, site not specified (ICD-10) Osteoporosis ?M81.0 - Age-related osteoporosis without current pathological fracture (ICD- 10) History of methicillin resistant Staphylococcus aureus infection ?Z86.14 - Personal history of Methicillin resistant Staphylococcus aureus infection (ICD-10) Surgical History Status post debridement ?Z98.890 - Other specified postprocedural states (ICD-10) Social History (Updated 12/08/23 @ 23:55 by Lucía Espinoza MD) Narrative: Mary has recently been living at [facility], daughter Elvi (MDM if needed) is hoping to bring her home with sales development executive caregiving. has cognitive impairment. At this time (12/08/23), she is requesting DNR/DNI status. Nonsmoker, no ETOH use. What is your current living situation?: I presently have a place to live Problems where you live: no known problems Problems where you live details: NA In the past 12 months, utilities in danger of being shut off: unable to answer In past 12 months, lack of transportation kept you from medical appts, meetings, work, or getting things needed for daily living: unable to answer In the past 12 mos, have been you worried that your food would run out before you had money to buy more?: unable to answer In the past 12 mos, the food you bought just didn't last and you didn't have money to buy more?: unable to answer Highest level of school completed/degree received: decline to answer Smoking Status: Never smoker Do you use any of these nicotine containing products: None and E-Cigarettes Second hand tobacco smoke exposure: No How often do you have a drink containing alcohol: never How often do you have six or more drinks on one occasion: Never AUDIT-C Alcohol total score: 0 Non-prescribed substance use: denies use Caffeine: No How often does anyone, including family, friends and others, physically hurt you : unable to answer How often does anyone, including family, friends and others, insult or talk down to you: unable to answer How often does anyone, including family, friends and others, threaten you with harm: unable to answer How often does anyone, including family, friends and others, scream or curse at you: unable to answer Little interest or pleasure in doing things: several days Feeling down, depressed, or hopeless: several days service: No Meds Home Medications and Allergies Home Medications Medication Instructions Recorded Confirmed Type multivitamin (Daily Multi-Vitamin 1 tab PO DAILY 07/10/22 12/08/23 History tablet) bisacodyl 10 mg rectal suppository 10 mg CA BID PRN 01/13/23 12/08/23 History (Gentle Laxative (bisacodyl)) zinc sulfate 50 mg zinc (220 mg) 100 mg PO DAILY 01/13/23 12/08/23 History capsule (Orazinc) ascorbate calcium (vitamin C) 500 500 mg PO DAILY 05/30/23 12/08/23 History mg tablet metoprolol succinate 50 mg 50 mg PO DAILY 08/31/23 12/08/23 History tablet,extended release 24 hr acetaminophen 500 mg capsule 1,000 mg PO Q8H PRN 12/08/23 12/08/23 History benzonatate 100 mg capsule 100 mg PO TID PRN 12/08/23 12/08/23 History carboxymethylcellulose sodium 0.5 1 drp ophthalmic (eye) TID 12/08/23 12/08/23 History % eye drops in a dropperette (Refresh Plus) miconazole nitrate 2 % topical 1 applic topical BID 12/08/23 12/08/23 History powder oxycodone 5 mg tablet 7.5 mg PO QID PRN pain 12/08/23 12/08/23 History Allergies Allergy/AdvReac Type Severity Reaction Status Date / Time vancomycin Allergy Severe Hives Verified 12/08/23 15:33 piperacillin Allergy Intermediate Rash Verified 12/08/23 15:33 tazobactam Allergy Intermediate Rash Verified 12/08/23 15:33 Exam Narrative: Exam Narrative: General: No acute distress Respiratory: Breathing nonlabored Skin: Right buttock ischial wound is clean. No erythema. No exudate. Bone is covered with granulation tissue. On the sacrum the patient has a superficial ulcer which is partial thickness. There is some surrounding ecchymosis. The right perianal wound is clean. There is no drainage. Seton is in place. Wound size correlates to CT findings. Const: Vital Signs, click to edit/add: Vital Signs - 24 hr 12/08/23 23:00 12/08/23 23:00 12/08/23 23:00 Temperature 99.1 F Pulse Rate 114 H Pulse Rate [Pulse Oximeter] 110 H 110 H Respiratory Rate 20 20 Blood Pressure [Le ft Radial Artery] 127/54 L Pulse Oximetry 97 Oxygen Delivery Me thod Room Air 12/09/23 00:30 12/09/23 05:00 12/09/23 07:00 Temperature 97.3 F L 96.7 F L 98.3 F Pulse Rate Pulse Rate [Pulse Oximeter] 110 H 109 H 114 H Respiratory Rate 18 20 18 Blood Pressure [Le ft Radial Artery] 123/45 L 135/65 124/75 Pulse Oximetry 94 95 88 Oxygen Delivery Me od Room Air Room Air Room Air 12/09/23 07:00 12/09/23 07:00 12/09/23 11:00 Temperature 99.3 F Pulse Rate 113 H Pulse Rate [Pulse Oximeter] 113 H 84 Respiratory Rate 18 Blood Pressure [Le ft Radial Artery] 112/57 L Pulse Oximetry 91 Oxygen Delivery Me thod Room Air 12/09/23 15:00 Temperature 98.7 F Pulse Rate Pulse Rate [Pulse Oximeter] 88 Respiratory Rate 18 Blood Pressure [Le ft Radial Artery] 115/59 L Pulse Oximetry 92 Oxygen Delivery Me thod Room Air Results Labs Labs: Abnormal lab results 12/09/23 Range/Units 06:25 WBC 20.03 H (4.50-11.00) K/uL RBC 3.40 L (4.00-5.20) m/uL Hgb 9.1 L (12.0-16.0) gm/dL Hct 29.6 L (33.0-51.0) % MCHC 31 L (32-36) gm/dL RDW Coeff of Lynette 17.9 H (11.5-15.5) % Neut % (Auto) 82.1 H (42.0-72.0) % Lymph % (Auto) 10.5 L (20-44) % Neut # (Auto) 16.40 H (1.7-7.0) K/uL [place] # (Auto) 1.10 H (0.00-0.90) K/UL VBG pH 7.449 H (7.32-7.43) VBG pCO2 39 L (40-50) mmHG VBG pO2 51.7 H (25-47) mmHG Sodium 128 L (135-149) mmol/L Anion Gap 5 L (7-15) mEq/L Creatinine 0.2 L (0.5-1.5) mg/dL Calcium 7.7 L (8.4-10.6) mg/dL Alkaline Phosphatase 163 H (40-150) U/L Troponin I 0.06 H* (0.01-0.04) ng/mL C-Reactive Protein 25.0 H (0.5-1.0) mg/dL Total Protein 4.6 L (6.0-8.3) g/dL Albumin 2.3 L (3.3-5.0) g/dL Diabetes panel 12/09/23 Range/Units 06:25 Sodium 128 L (135-149) mmol/L Potassium 3.8 (3.6-5.1) mmol/L Chloride 98 (96-114) mmol/L Carbon Dioxide 25 (20-32) mmol/L BUN 14 (7-30) mg/dL Creatinine 0.2 L (0.5-1.5) mg/dL Glucose 75 (60-115) mg/dL Calcium 7.7 L (8.4-10.6) mg/dL AST 21 (12-35) U/L ALT 16 (4-35) U/L Alkaline Phosphatase 163 H (40-150) U/L Total Protein 4.6 L (6.0-8.3) g/dL Albumin 2.3 L (3.3-5.0) g/dL Calcium panel 12/09/23 Range/Units 06:25 Calcium 7.7 L (8.4-10.6) mg/dL Albumin 2.3 L (3.3-5.0) g/dL Pituitary panel 12/09/23 Range/Units 06:25 Sodium 128 L (135-149) mmol/L Potassium 3.8 (3.6-5.1) mmol/L Chloride 98 (96-114) mmol/L Carbon Dioxide 25 (20-32) mmol/L BUN 14 (7-30) mg/dL Creatinine 0.2 L (0.5-1.5) mg/dL Glucose 75 (60-115) mg/dL Calcium 7.7 L (8.4-10.6) mg/dL Adrenal panel 12/09/23 Range/Units 06:25 Sodium 128 L (135-149) mmol/L Potassium 3.8 (3.6-5.1) mmol/L Chloride 98 (96-114) mmol/L Carbon Dioxide 25 (20-32) mmol/L BUN 14 (7-30) mg/dL Creatinine 0.2 L (0.5-1.5) mg/dL Glucose 75 (60-115) mg/dL Calcium 7.7 L (8.4-10.6) mg/dL Total Bilirubin 1.3 (0.1-1.5) mg/dL AST 21 (12-35) U/L ALT 16 (4-35) U/L Alkaline Phosphatase 163 H (40-150) U/L Total Protein 4.6 L (6.0-8.3) g/dL Albumin 2.3 L (3.3-5.0) g/dL All other labs normal. Imaging Abdomen CT scan report/results: report reviewed and image reviewed Additional studies: CT abdomen/pelvis 2/26/24 IMPRESSION: 1. Deep right ischial decubitus ulcer with increased erosion of the right ischial tuberosity, concerning for osteomyelitis. 2. Seton in the right perirectal region with resolution of previously seen perirectal abscess. Persistent but decreased adjacent subcutaneous soft tissue gas. 3. Bilateral nonobstructive nephrolithiasis. 4. Bibasilar atelectasis. Otherwise no acute infiltrates. Progress Note:A&P Assessment and plan (1) Decubitus ulcers: Status: Acute (2) Aure-rectal abscess: Status: Acute (3) Rheumatoid arthritis: Status: Acute (4) Sepsis: Status: Acute Plan The patient is a 77-year-old female with paraplegia and multiple wounds on her buttocks, sacrum and perianal region. She presents with septic picture which is likely secondary to UTI, also with COVID and complicated by chronic immunosuppression. Currently wounds are healthy and no outward signs of infection. May be worsening erosion of the bone however on CT scan. Previous bone culture/biopsy did not grow any organism, however this was done in September. -Consider ID consult to determine whether not prolonged course of IV antibiotics is warranted for this finding concerning for osteomyelitis. -Otherwise continue wound cares with daily wet-to-dry dressing changes. -OK to place wound VAC on the the right ischial wound once it arrives. Would change this q.3 days. -Recommend repositioning frequently and Mepilex to sacral wound.
[2023-12-09] MEDS: ENOXAPARIN 40 MG/0.4 ML INJ SUBCUT (21:29)
--- NOTE | 2023-12-09 23:46 | PC.NURSE ---
End of Shift: Pt remained AO throughout shift. Refused to transfer from bed to chair d/t comfort. Daughter came to visit, brought wound vac. Daughter informed that wound vac is not compatible with our supplies in the hospital-daughter stated she would bring correct supplies. Wound dressing changed by MD on both coccyx and right hip. Pt tolerated well. Requested oxycodone for pain, pain improved from 7 to a 6, pt satisfied. Pt repositioned x2h. PICC placed in right upper arm, pt tolerated procedure well. PICC CDI and patent. Cristobal catheter in place, intact, patent. No BM.
[2023-12-10] VITALS (9 sets, daily range): BP systolic 104–142; BP diastolic 54–89; PULSE 77–93; RESP 16–20; TEMP 35.8–37.1; O2SAT 95–96; BMI 27.4
--- NOTE | 2023-12-10 00:22 | PC.NURSE ---
Dr. Gallegos seen patient and changed wound dressings on kwabena rectal area and right hip.
[2023-12-10] MEDS: CIPROFLOXACIN 400 MG/200 ML PIGGYBACK 200 MG IVPB (00:25)
[2023-12-10] MEDS: OXYCODONE 5 MG TABLET 7.5 MG PO ×4 (04:34→22:25)
[2023-12-10] MEDS: LACTATED RINGERS 1000 ML 1,000 ML 125 ML IV ×3 (04:43→22:02)
[2023-12-10] MEDS: CEFEPIME HCL 1 GM in 0.9 % SODIUM CHLORIDE Mini-bag 100 ML IVPB ×2 (06:16→14:28)
[2023-12-10] MEDS: OMEPRAZOLE 20 MG CAPSULE DR PO ×2 (06:24→22:06)
[2023-12-10 06:36] LABS: HCO3 VBG 27 mmol/L (21-28); Lactate* 1.8 mmol/L (0.5-1.9); PCO2 VBG 47 mmHG (40-50); pH VBG 7.373 (7.32-7.43)
[2023-12-10 06:49] LABS: Mean Corpuscular Hemoglobin 27 pg (26-34)
[2023-12-10 06:52] LABS: White Blood Count* 15.71 K/uL (4.50-11.00)
[2023-12-10 06:53] LABS: Basophils Percent Auto 0.2 % (0.0-3.0); Eosinophils Percent Auto 1.7 % (0.0-7.0); Hematocrit 26.5 % (33.0-51.0); Hemoglobin* 7.9 gm/dL (12.0-16.0); Immature Granulocytes Pct Auto 1.7 %; Lymphocytes Percent Auto 15.9 % (20-44); Mean Corpuscular HGB Conc 30 gm/dL (32-36); Mean Corpuscular Volume 91 fL (80-100); Neutrophils Percent Auto 72.5 % (42.0-72.0); Platelet Count* 367 K/uL (140-440); Red Blood Count 2.92 m/uL (4.00-5.20)
[2023-12-10 06:54] LABS: Slide Review Reflex No
[2023-12-10 07:49] LABS: Albumin* 2.2 g/dL (3.3-5.0); Chloride* 102 mmol/L (96-114)
[2023-12-10 07:50] LABS: Potassium* 4.7 mmol/L (3.6-5.1); Sodium* 131 mmol/L (135-149)
[2023-12-10 07:52] LABS: Alkaline Phosphatase* 152 U/L (40-150); Anion Gap 5 mEq/L (7-15); Aspartate Amino Transferase* 20 U/L (12-35); Bilirubin Direct* 0.3 mg/dL (0.0-0.5); Bilirubin Total* 0.4 mg/dL (0.1-1.5); Blood Urea Nitrogen* 9 mg/dL (7-30); Carbon Dioxide* 24 mmol/L (20-32); Creatinine* 0.3 mg/dL (0.5-1.5); Est. Creatinine Clearance* 34.38; Estimated Glomerular Filt Rate 110 ml/min; Total Protein* 4.4 g/dL (6.0-8.3)
[2023-12-10 07:53] LABS: Alanine Aminotransferase* 17 U/L (4-35); Calcium* 7.9 mg/dL (8.4-10.6); Gamma Glutamyl Transpeptidase* 94 U/L (8-55); Glucose* 97 mg/dL (60-115); Phosphorus* 2.3 mg/dL (2.5-4.5)
[2023-12-10 08:05] LABS: Troponin I* 0.03 ng/mL (0.01-0.04)
[2023-12-10 08:09] LABS: Procalcitonin* 0.21 ng/mL (<0.50)
[2023-12-10 08:54] LABS: C Reactive Protein* 15.2 mg/dL (0.5-1.0)
[2023-12-10] MEDS: predniSONE 5 MG TABLET 10 MG PO (09:13)
[2023-12-10] MEDS: GABAPENTIN 300 MG CAPSULE PO ×3 (09:13→22:06)
[2023-12-10] MEDS: POTASSIUM CHLORIDE 10 MEQ CAPSULE ER 20 MEQ PO ×2 (09:13→17:03)
[2023-12-10] MEDS: LACTOBACILLUS ACIDOPHILUS 1 TABLET 1 TAB PO ×3 (09:13→17:03)
[2023-12-10] MEDS: METOPROLOL SUCCINATE (XL) 50 MG TAB PO (09:13)
--- NOTE | 2023-12-10 13:54 | RESP.RT ---
Patient to have Bipap at home post discharge per MD. Working with [employer] for approval and setup. Case Avila will continue to work on this on .
--- NOTE | 2023-12-10 14:48 | PM.IMPN1 ---
Progress Note: A&P Assessment and plan (1) Sepsis: Problem details: - sepsis markers have improved. Her blood pressure is now normal. Her heart rate is now normal. Her T-max is 99.3? - Recent COVID, unlikely that this is the cause of current illness (urine most likely source given history) - Cipro and cefepime empirically initiated in the ER (12/08) - transitioned to monotherapy with ceftriaxone on 12/10 evening - C diff neg - CT demonstrated possible increase in erosion of the right ischial tuberosity - clinically (Dr. Gallegos from wound care) feels this wound is stable. Status: Acute (2) UTI (urinary tract infection): Problem details: Ecoli. c/s reviewed. afebrile. sepsis markers resolving. cipro/cefempime --> ceftriaxone. Status: Acute (3) Decubitus ulcers: Problem details: - s/p debridement 08/28/23 - twice daily dressing changes to deeper wound - Wound Vac Status: Acute (4) Anemia: Problem details: no obvious blood loss. has had GI loss before - will trend and investigate. Status: Acute (5) Hyponatremia: Problem details: NS bolus - fluid restriction trend Status: Acute (6) Acute hypokalemia: Problem details: - IV replacement and follow Status: Acute (7) CO2 retention: Problem details: - long history of sever CO2 retention, cannot receive supplemental oxygen without BiPAP, RT aware and following - RT to discuss with [facility] and pursure home delivery of previously prescribed BiPAP for home use. 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, stage 4: Problem details: - Chronic right ischial tuberosity wound - wound VAC did not come to ED from [facility] on 12/08; will perform wet to dry dressings and place wound care consult - CT of her pelvis mentions increased erosion of the right ischial tuberosity so this could represent an acute on chronic osteomyelitis picture - awaiting surgical consult/wound care consult bedside Status: Chronic (10) Paraplegia: Problem details: - since age 6; 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 -c/o of right buttock pain - im;proving. -WBC is downtrending -hgb dropped to 7.9 -crp, troponin, procal all trending down -PICC line placed 12/09 Objective: resting comfortably on room air. can hold conversation. Vitals: see above Lungs: Clear. Cardiac: S1S2. wounds not evaluated. Disposition/Potential discharge - Likely to return to previous living situation (SNF) Exam Const: Vital Signs, click to edit/add: Vital Signs - 24 hr 12/09/23 15:00 12/09/23 15:00 12/09/23 15:00 Temperature 98.7 F Pulse Rate 80 Pulse Rate [Pulse Oximeter] 88 90 Respiratory Rate 18 18 Blood Pressure [Le ft Radial Artery] 115/59 L Pulse Oximetry 92 Oxygen Delivery Me thod Room Air Fraction of Inspir ed Oxygen 12/09/23 19:00 12/09/23 23:00 12/10/23 00:00 Temperature 98.4 F Pulse Rate 79 Pulse Rate [Pulse Oximeter] 86 86 Respiratory Rate 18 18 Blood Pressure [Le ft Radial Artery] 117/65 Pulse Oximetry 94 Oxygen Delivery Me thod Room Air Fraction of Inspir ed Oxygen 21 12/10/23 00:00 12/10/23 04:25 12/10/23 07:00 Temperature 96.5 F L 97.8 F 98.5 F Pulse Rate Pulse Rate [Pulse Oximeter] 81 93 90 Respiratory Rate 18 20 16 Blood Pressure [Le ft Radial Artery] 104/54 L 105/60 125/79 Pulse Oximetry 95 96 95 Oxygen Delivery Me thod Nasal Cannula Nasal Cannula Room Air Fraction of Inspir ed Oxygen 12/10/23 07:37 12/10/23 11:00 Temperature 98.8 F Pulse Rate 84 Pulse Rate [Pulse Oximeter] 77 Respiratory Rate 16 Blood Pressure [Le ft Radial Artery] 134/89 Pulse Oximetry 95 Oxygen Delivery Me thod Room Air Fraction of Inspir ed Oxygen Labs Labs: Laboratory Results - last 24 hr 12/10/23 06:25 WBC 15.71 H RBC 2.92 L Hgb 7.9 L* Hct 26.5 L MCV 91 MCH 27 MCHC 30 L RDW Coeff of Lynette 18.0 H Plt Count 367 Neut % (Auto) 72.5 H Lymph % (Auto) 15.9 L [place] % (Auto) 8.0 Eos % (Auto) 1.7 Baso % (Auto) 0.2 Neut # (Auto) 11.40 H Lymph # (Auto) 2.50 [place] # (Auto) 1.30 H Eos # (Auto) 0.30 Baso # (Auto) 0.00 Abs Immat Gran (auto) 0.30 Imm/Tot Granulo (auto) 1.7 VBG pH 7.373 VBG pCO2 47 VBG pO2 41.0 VBG HCO3 27 Sodium 131 L Potassium 4.7 Chloride 102 Carbon Dioxide 24 Anion Gap 5 L BUN 9 Creatinine 0.3 L Estimated Creat Clear 34.38 Estimated GFR 110 Glucose 97 Lactate 1.8 Calcium 7.9 L Phosphorus 2.3 L Total Bilirubin 0.4 Direct Bilirubin 0.3 GGT 94 H AST 20 ALT 17 Alkaline Phosphatase 152 H Troponin I 0.03 C-Reactive Protein 15.2 H Total Protein 4.4 L Albumin 2.2 L Procalcitonin 0.21
--- NOTE | 2023-12-10 19:29 | PC.NURSE ---
Addendum entered by Johanny Sr RN 12/10/23 19:41: Pt wound vac setting at 60mmHg, approved per Dr. Gallegos Original Note: End of shift [id number] ? Pt alert, oriented, cooperative and soft spoken. Reported pain in R buttock and hip that radiates down leg related to chronic wounds on perianal and coccyx area. Medication given per DEC with pt reporting tolerating pain. Tolerating RA, regular diet, fluids. Turn and reposition encouraged, pt reluctant to comply with RN suggestion. Education provided regarding the importance of off-loading weight from wound beds. Wound vac reapplied per MD orders. Pt reported pain in neck and back. Pt refused medication from DEC, accepted reposition and is reporting tolerating. Pt appears to be resting comfortably at end of shift. ?
[2023-12-10] MEDS: cefTRIAXone 1 GM in 0.9 % SODIUM CHLORIDE Mini-bag 100 ML IVPB (22:02)
[2023-12-10] MEDS: ENOXAPARIN 40 MG/0.4 ML INJ SUBCUT (22:06)
[2023-12-11 03:00] VITALS: BP 144/86; PULSE 76; RESP 16; TEMP 35.9; O2SAT 96
--- NOTE | 2023-12-11 04:46 | PC.NURSE ---
Shift note: Pt is alert and oriented, continue to be bedridden. No fever and cough observed. BiPAP was set up 2300 but pt asked for it be removed at 0350 because pt thinks it is not comfortable. Attempted to turn and reposition Q2H but pt refused most at the time. Cristobal looking good and draining clear ankit colored urine. Pt has had no BM since Friday, says pt.
[2023-12-11 06:55] LABS: Basophils Percent Auto 0.2 % (0.0-3.0); Eosinophils Percent Auto 1.3 % (0.0-7.0); Hematocrit 31.9 % (33.0-51.0); Hemoglobin* 9.5 gm/dL (12.0-16.0); Immature Granulocytes Pct Auto 3.2 %; Lymphocytes Percent Auto 16.3 % (20-44); Mean Corpuscular HGB Conc 30 gm/dL (32-36); Mean Corpuscular Hemoglobin 27 pg (26-34); Mean Corpuscular Volume 90 fL (80-100); Monocytes Percent Auto 8.7 % (0.0-11.0); Neutrophils Percent Auto 70.3 % (42.0-72.0); Platelet Count* 394 K/uL (140-440); RDW Coefficient of Variation % 18.1 % (11.5-15.5); Red Blood Count 3.55 m/uL (4.00-5.20); White Blood Count* 15.57 K/uL (4.50-11.00)
[2023-12-11 06:58] LABS: Slide Review Reflex No
[2023-12-11 07:00] VITALS: BP 165/74; PULSE 107; PULSE 110; RESP 18; TEMP 36.8; O2SAT 94
[2023-12-11 07:16] LABS: Albumin* 2.4 g/dL (3.3-5.0); Chloride* 103 mmol/L (96-114)
[2023-12-11 07:17] LABS: Potassium* 4.3 mmol/L (3.6-5.1); Sodium* 132 mmol/L (135-149)
[2023-12-11 07:18] LABS: Creatinine* 0.3 mg/dL (0.5-1.5); Est. Creatinine Clearance* 34.38; Estimated Glomerular Filt Rate 110 ml/min
[2023-12-11 07:19] LABS: Alanine Aminotransferase* 17 U/L (4-35); Alkaline Phosphatase* 152 U/L (40-150); Anion Gap 2 mEq/L (7-15); Aspartate Amino Transferase* 19 U/L (12-35); Bilirubin Total* 0.3 mg/dL (0.1-1.5); Blood Urea Nitrogen* 8 mg/dL (7-30); Calcium* 8.3 mg/dL (8.4-10.6); Carbon Dioxide* 27 mmol/L (20-32); Gamma Glutamyl Transpeptidase* 95 U/L (8-55); Glucose* 100 mg/dL (60-115); Total Protein* 4.8 g/dL (6.0-8.3)
[2023-12-11 07:22] LABS: C Reactive Protein* 8.1 mg/dL (0.5-1.0)
[2023-12-11 07:34] LABS: Procalcitonin* 0.12 ng/mL (<0.50)
[2023-12-11] MEDS: OMEPRAZOLE 20 MG CAPSULE DR PO ×2 (09:09→20:44)
[2023-12-11] MEDS: LACTATED RINGERS 1000 ML 1,000 ML 125 ML IV (09:09)
[2023-12-11] MEDS: POTASSIUM CHLORIDE 10 MEQ CAPSULE ER 20 MEQ PO ×2 (09:10→18:06)
[2023-12-11] MEDS: GABAPENTIN 300 MG CAPSULE PO ×2 (09:10→20:44)
[2023-12-11] MEDS: LACTOBACILLUS ACIDOPHILUS 1 TABLET 1 TAB PO ×2 (09:10→18:07)
[2023-12-11] MEDS: METOPROLOL SUCCINATE (XL) 50 MG TAB PO (09:10)
[2023-12-11] MEDS: predniSONE 5 MG TABLET 10 MG PO (09:10)
[2023-12-11] MEDS: SENNOSIDES/DOCUSATE TABLET 1 TAB PO ×2 (09:11→20:44)
[2023-12-11] MEDS: OXYCODONE 5 MG TABLET 7.5 MG PO ×3 (09:11→20:44)
--- NOTE | 2023-12-11 10:24 | P.IMPN_ITS ---
Progress Note: A&P Assessment and plan (1) Sepsis: Problem details: - sepsis markers have improved. - Recent COVID, unlikely that this is the cause of current illness (urine most likely source given history) - Cipro and cefepime empirically initiated in the ER (12/08) - transitioned to m onotherapy with ceftriaxone on 12/10 evening - C diff neg - CT demonstrated possible increase in erosion of the right ischial tuberosity - clinically (Dr. Gallegos from wound care) feels this wound is stable. Status: Acute (2) UTI (urinary tract infection): Problem details: Ecoli. c/s reviewed. afebrile. sepsis markers resolving. cipro/cefempime --> ceftriaxone. Status: Acute (3) Decubitus ulcers: Problem details: - s/p debridement 08/28/23 - twice daily dressing changes to deeper wound - Wound Vac Status: Acute (4) Anemia: Problem details: no obvious blood loss. has had GI loss before - will trend and investigate. Status: Acute (5) Hyponatremia: Problem details: NS bolus - fluid restriction trend improved Status: Acute (6) Acute hypokalemia: Problem details: - IV replacement and follow improved Status: Acute (7) CO2 retention: Problem details: - long history of severe CO2 retention, cannot receive supplemental oxygen without BiPAP, RT aware and following - RT to discuss with [facility] and pursue home delivery of previously prescribed BiPAP for home use. 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 OVERNIGHT UPDATES FROM STAFF & MED, LAB, IMAGING UPDATES -used bipap overnight with mod sucess. -continues to feel improved -less weak, fatigue, tired. -c/o of right buttock pain - improving. -WBC is downtrending -hgb is stable; likely lab error or drawn above IV on 12/10 -crp, troponin, procal all trending down -PICC line placed 12/09 Objective: resting comfortably on room air. can hold conversation. Vitals: see above Lungs: Clear. Cardiac: S1S2. wounds not evaluated. Disposition/Potential discharge - Likely to return to previous living situation (SNF) Exam Const: Vital Signs, click to edit/add: Vital Signs - 24 hr 12/10/23 11:00 12/10/23 15:00 12/10/23 15:00 Temperature 98.8 F 98.1 F Pulse Rate 86 Pulse Rate [Pulse Oximeter] 77 81 Respiratory Rate 16 16 Blood Pressure [Le ft Radial Artery] 134/89 142/74 H Pulse Oximetry 95 95 Oxygen Delivery Me thod Room Air Room Air Fraction of Inspir ed Oxygen 12/10/23 19:00 12/10/23 22:11 12/10/23 22:49 Temperature 98.1 F 97.4 F L Pulse Rate 86 Pulse Rate [Pulse Oximeter] 86 85 Respiratory Rate 16 16 Blood Pressure [Le ft Radial Artery] 128/79 142/76 H Pulse Oximetry 95 95 Oxygen Delivery Me thod Room Air Room Air Fraction of Inspir ed Oxygen 12/10/23 22:49 12/11/23 03:00 12/11/23 07:00 Temperature 96.7 F L 98.2 F Pulse Rate Pulse Rate [Pulse Oximeter] 85 76 110 H Respiratory Rate 16 16 18 Blood Pressure [Le ft Radial Artery] 144/86 H 165/74 H Pulse Oximetry 96 94 Oxygen Delivery Me thod BiPAP Room Air Fraction of Inspir ed Oxygen 21 Labs Labs: Laboratory Results - last 24 hr 12/11/23 Unknown WBC 15.57 H RBC 3.55 L Hgb 9.5 L Hct 31.9 L MCV 90 MCH 27 MCHC 30 L RDW Coeff of [place] 18.1 H Plt Count 394 Neut % (Auto) 70.3 Lymph % (Auto) 16.3 L Green % (Auto) 8.7 Eos % (Auto) 1.3 Baso % (Auto) 0.2 Neut # (Auto) 10.90 H Lymph # (Auto) 2.50 Green # (Auto) 1.40 H Eos # (Auto) 0.20 Baso # (Auto) 0.00 Abs Immat Gran (auto) 0.50 H Imm/Tot Granulo (auto) 3.2 Sodium 132 L Potassium 4.3 Chloride 103 Carbon Dioxide 27 Anion Gap 2 L BUN 8 Creatinine 0.3 L Estimated Creat Clear 34.38 Estimated GFR 110 Glucose 100 Calcium 8.3 L Total Bilirubin 0.3 GGT 95 H AST 19 ALT 17 Alkaline Phosphatase 152 H C-Reactive Protein 8.1 H Total Protein 4.8 L Albumin 2.4 L Procalcitonin 0.12
--- NOTE | 2023-12-11 10:49 | PC.SOCIAL ---
Discharge planning: Called pt's dtr Elvi and left message requesting a call back. Called [facility] and spoke with nursing, Yola, who states home health was arranged to start with [facility] but had not started when pt came to the hospital. Called [facility] and spoke with Sameera who confirmed they received the order but states they no longer can staff it and are declining it at this time. Received call back from dtr, Elvi, who states she had worked witht social work supervisor at [facility] on choosing a home care agency becuase she was not happy with the home care provided by [facility]. Dtr requested home care be arranged with [facility] as they have had this in the past and it was a good experience. Per dtr, the order Alessandra Boyd had sent to home care was for home health nursing for wound care three times a week and for once a week bath aid. Called [facility] and left message requesting call back. mold yard worker to follow up as needed.
--- NOTE | 2023-12-11 10:53 | P.CCN_ITS ---
Subjective Subjective Date Seen: 12/11/23 Principal diagnosis: Chronic hypercapnic respiratory failure Interval history: Mary Major is a medically complex patient. She manages transfers myelopathy syndrome with paraplegia, sleep apnea, chronic open wounds, hy pertension, chronic pain, rheumatoid arthritis. The hospital medicine team knows her well. She requires BiPAP while sleeping to avoid life-threatening hypercapnia. We attempted to manage her chronic hypercapnia with CPAP. This was ineffective. During her hospitalization in August of 2023, more specifically August 30 and we measured blood gas and attempted CPAP and BiPAP modalities. Only BiPAP was effective in keeping her pH, CO2 at acceptable levels. I have personally cared for, evaluated Mrs. Major in August of 2023, September of 2023 and during her current hospitalization in November 2023.
[2023-12-11 11:00] VITALS: BP 128/62; PULSE 110; RESP 24; TEMP 36.8; O2SAT 94
[2023-12-11] MEDS: MAGNESIUM HYDROXIDE 30 ML ORAL.SUSP PO (11:09)
[2023-12-11] MEDS: CEFPODOXIME PROXETIL 200 MG TABLET PO ×2 (11:25→20:45)
--- NOTE | 2023-12-11 13:48 | PC.SOCIAL ---
Discharge planning: Received call back from [facility] Stating they have space to provide home care for wound care for Friday and Friday, if pt can go to the [facility] on Friday. Home care can also provide a bath aid 1xweek. green end worker to follow up.
[2023-12-11 15:00] VITALS: BP 155/76; PULSE 110; RESP 16; TEMP 36.6; O2SAT 93
[2023-12-11 19:00] VITALS: BP 176/91; PULSE 106; RESP 18; TEMP 36.8; O2SAT 94
--- NOTE | 2023-12-11 19:40 | PC.NURSE ---
The patient is pleasant and cooperative... Wound care was completed per orders. Wound vac has good suction @60 for pressure. Milk of magnesia and stool softener were given for constipation... no BM this shift. Cristobal is patent and draining. Q2 reposition and check. Tolerating a regular diet with no issues reported moderate pain in R LE throughout the shift PRN oxy given 2x. SCDs are in place. Call light within reach and calls appropriately. JEANNE VALENTINE BSN
[2023-12-11] MEDS: ENOXAPARIN 40 MG/0.4 ML INJ SUBCUT (20:43)
[2023-12-11] MEDS: SODIUM CHLORIDE 0.9 % (FLUSH) 10 ML SYRINGE 5 ML IVF (20:45)
[2023-12-11 23:00] VITALS: BP 164/88; PULSE 106; RESP 18; TEMP 36.3; O2SAT 96
[2023-12-11] MEDS: bisacodyL 10 MG SUPP.RECT PR (23:13)
[2023-12-12] MEDS: OXYCODONE 5 MG TABLET 7.5 MG PO ×3 (02:36→17:55)
[2023-12-12 02:59] VITALS: BP 159/82; PULSE 99; RESP 18; TEMP 37; O2SAT 92
[2023-12-12 06:39] LABS: HCO3 VBG 32 mmol/L (21-28); PCO2 VBG 54 mmHG (40-50); PO2 VBG 37.7 mmHG (25-47)
--- NOTE | 2023-12-12 06:39 | PC.NURSE ---
End of shift [id number]: Pt A&O, afebrile and VSS throughout this shift. Turn/repo q2H and as pt requested. Pt c/o constipation so suppository was given @ 2300 resulting with a small, mucous BM overnight. Right buttock wound re-packed with NS soaked 4x4 gauze. Right hip wound vac C/D/I with no output. Sacral Mepilex C/D/I. Cristobal catheter intact & draining. RUE PICC is C/D/I and SL. Pt was resistive on having BiPap on overnight but agreed after singer songwriter provided education on hypercapnia risk. She had BiPap on from [id number]. Pt received PRN oxy x2 doses overnight, last given @ 0235. Fluid restriction of 1800 mL followed overnight. Pt weight was not measured d/t the bed scale being inaccurate & pt did not want to be raised up in the [place] lift overnight. ?
[2023-12-12 06:44] LABS: Hematocrit 32.6 % (33.0-51.0); Hemoglobin* 9.5 gm/dL (12.0-16.0); Mean Corpuscular HGB Conc 29 gm/dL (32-36); Mean Corpuscular Hemoglobin 26 pg (26-34); Mean Corpuscular Volume 91 fL (80-100); Platelet Count* 406 K/uL (140-440); White Blood Count* 19.53 K/uL (4.50-11.00)
[2023-12-12 06:52] LABS: Slide Review Reflex No
--- NOTE | 2023-12-12 07:05 | PC.NURSE ---
Patient refused to have weight done overnight. Bedscale was inaccurate (weighing patient at 176lbs when a few days ago on admission she was 140lbs). Power System Dispatcher informed Dr. Bear of patient refusal and she's okay with it not being done prior to discharge today.
[2023-12-12 07:13] LABS: Albumin* 2.4 g/dL (3.3-5.0); Chloride* 103 mmol/L (96-114)
[2023-12-12 07:14] LABS: Potassium* 4.8 mmol/L (3.6-5.1); Sodium* 135 mmol/L (135-149)
[2023-12-12 07:16] LABS: Bilirubin Total* 0.2 mg/dL (0.1-1.5); Creatinine* 0.2 mg/dL (0.5-1.5); Est. Creatinine Clearance* 34.38; Estimated Glomerular Filt Rate 121 ml/min
[2023-12-12 07:17] LABS: Alanine Aminotransferase* 16 U/L (4-35); Alkaline Phosphatase* 138 U/L (40-150); Anion Gap 3 mEq/L (7-15); Aspartate Amino Transferase* 24 U/L (12-35); Blood Urea Nitrogen* 9 mg/dL (7-30); Calcium* 8.1 mg/dL (8.4-10.6); Carbon Dioxide* 29 mmol/L (20-32); Gamma Glutamyl Transpeptidase* 92 U/L (8-55); Glucose* 112 mg/dL (60-115); Total Protein* 4.7 g/dL (6.0-8.3)
[2023-12-12 07:20] LABS: C Reactive Protein* 4.4 mg/dL (0.5-1.0)
[2023-12-12] MEDS: POTASSIUM CHLORIDE 10 MEQ CAPSULE ER 20 MEQ PO ×2 (08:40→17:55)
[2023-12-12] MEDS: OMEPRAZOLE 20 MG CAPSULE DR PO ×2 (08:40→20:47)
[2023-12-12] MEDS: LACTOBACILLUS ACIDOPHILUS 1 TABLET 1 TAB PO ×3 (08:41→17:56)
[2023-12-12 08:51] VITALS: BP 179/97; PULSE 102; RESP 24; TEMP 36.5; O2SAT 89
[2023-12-12] MEDS: predniSONE 5 MG TABLET 10 MG PO (10:35)
[2023-12-12] MEDS: METOPROLOL SUCCINATE (XL) 50 MG TAB PO (10:35)
[2023-12-12] MEDS: CEFPODOXIME PROXETIL 200 MG TABLET PO ×2 (10:36→20:46)
[2023-12-12] MEDS: GABAPENTIN 300 MG CAPSULE PO ×3 (10:36→20:47)
[2023-12-12] MEDS: SENNOSIDES/DOCUSATE TABLET 1 TAB PO ×2 (10:36→20:47)
[2023-12-12] MEDS: SODIUM CHLORIDE 0.9 % (FLUSH) 10 ML SYRINGE 5 ML IVF ×2 (10:37→20:47)
[2023-12-12 11:00] VITALS: BP 159/82; PULSE 102; RESP 18; TEMP 36.6; O2SAT 90
--- NOTE | 2023-12-12 12:50 | P.IMPN_ITS ---
Progress Note: A&P Assessment and plan (1) Sepsis: Problem details: - sepsis markers have improved. - Recent COVID, unlikely that this is the cause of current illness (urine most likely source given history) - Cipro and cefepime empirically initiated in the ER (12/08) - transitioned to m onotherapy with ceftriaxone on 12/10 evening --> Vantin - C diff neg - CT demonstrated possible increase in erosion of the right ischial tuberosity - clinically (Dr. Gallegos from wound care) feels this wound is stable. Status: Acute (2) UTI (urinary tract infection): Problem details: Ecoli. c/s reviewed. afebrile. sepsis markers resolving. 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 - wound VAC to be changed 3x a week. home health set up for home visits M/W. Daughter to transport on Fridays. Status: Chronic (4) Decubitus ulcers: Problem details: - s/p debridement 08/28/23 - twice daily dressing changes to deeper wound - Wound Vac to the right buttock wound; changed 3x a week. Status: Acute (5) COPD (chronic obstructive pulmonary disease): Problem details: chronic overlay with central sleep apnea and hypoventilation given long standing paraplegia - -home bipap needed to manage chronic hypercapnia -RT has been essential in working on home DME -expecting delivery 12/11 from DME clinic with BiPap unit - discussed discharge planning with Mary - plan for trial with [facility] night of 12/11 - d/c in the am Status: Acute (6) Hyponatremia: Problem details: NS bolus - fluid restriction trend improved Status: Acute (7) Acute hypokalemia: Problem details: - IV replacement and follow improved Status: Acute (8) Neurogenic bladder: Problem details: - chronic indwelling catheter - replaced catheter 12/09 Status: Chronic (9) Paraplegia: Problem details: - since age 6; 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 has had GI loss before - will trend and investigate. Status: Acute (12) Chronic, continuous use of opioids: Problem details: - on Oxycodone 7.5 mg QID as an oupatient, continue to assess and treat as needed Status: Acute Subjective Date Seen: 12/12/23 Interval history: Day #: 4 CC: complicated UTI --> sepsis. OVERNIGHT UPDATES FROM STAFF & MED, LAB, IMAGING UPDATES -used bipap overnight with distress/discomfort -continues to feel improved but anxious regarding the transition from SNF --> hospital --> home. -less weak, fatigue, tired. -c/o of right buttock pain - improving. -WBC is up today, 19K from a previous downtrend. no fever overnight. -hgb is stable; likely lab error or drawn above IV on 12/10 -crp, troponin, procal all trending down -PICC line placed 12/09 Objective: resting comfortably on room air. can hold conversation. Vitals: see above Lungs: Clear. Cardiac: S1S2. wounds not evaluated. RN has been changing wound vac; no concerns. Disposition/Potential discharge - Likely to return home 12/12 Patient and I had Exam Const: Vital Signs, click to edit/add: Vital Signs - 24 hr 12/11/23 15:00 12/11/23 19:00 12/11/23 23:00 Temperature 97.9 F 98.3 F Pulse Rate [Pulse Oximeter] 110 H 106 H 106 H Respiratory Rate 16 18 18 Blood Pressure [Le ft Arm] 176/91 H Blood Pressure [Le ft Radial Artery] 155/76 H Pulse Oximetry 93 94 Oxygen Delivery Me thod Room Air Room Air Fraction of Inspir ed Oxygen 12/11/23 23:00 12/12/23 02:59 12/12/23 08:51 Temperature 97.4 F L 98.6 F 97.7 F Pulse Rate [Pulse Oximeter] 106 H 99 102 H Respiratory Rate 18 18 24 Blood Pressure [Le ft Arm] 164/88 H 159/82 H 179/97 H Blood Pressure [Le ft Radial Artery] Pulse Oximetry 96 92 89 Oxygen Delivery Me thod BiPAP Room Air BiPAP Room Air Fraction of Inspir ed Oxygen 21 12/12/23 09:35 Temperature Pulse Rate [Pulse Oximeter] Respiratory Rate Blood Pressure [Le ft Arm] Blood Pressure [Le ft Radial Artery] Pulse Oximetry Oxygen Delivery Me thod Fraction of Inspir ed Oxygen 0.21 Labs Labs: Laboratory Results - last 24 hr 12/12/23 Unknown WBC 19.53 H RBC 3.60 L Hgb 9.5 L Hct 32.6 L MCV 91 MCH 26 MCHC 29 L Plt Count 406 VBG pH 7.380 VBG pCO2 54 H VBG pO2 37.7 VBG HCO3 32 H Sodium 135 Potassium 4.8 Chloride 103 Carbon Dioxide 29 Anion Gap 3 L BUN 9 Creatinine 0.2 L Estimated Creat Clear 34.38 Estimated GFR 121 Glucose 112 Calcium 8.1 L Total Bilirubin 0.2 GGT 92 H AST 24 ALT 16 Alkaline Phosphatase 138 C-Reactive Protein 4.4 H Total Protein 4.7 L Albumin 2.4 L
--- NOTE | 2023-12-12 13:41 | PC.SOCIAL ---
Discharge planning: Spoke with [facility] who confirmed they will start care on Friday and will provide Friday and Friday wound care with the [facility] providing Friday wound care. [facility] will also provide bathing aid once a week. Called dtr, who is aware and pleased with this plan. Important Message from Medicare was provided to the patient and explained to daughter as well. pt has appealed during a previous hospital stay, but is pleased with current discharge plan. Dtr is aware of how to contact social welfare research worker if additional resources or needs are identified.
[2023-12-12 15:00] VITALS: BP 130/67; PULSE 96; RESP 18; TEMP 37.1; O2SAT 92
[2023-12-12] MEDS: bisacodyL 10 MG SUPP.RECT PR (16:21)
--- NOTE | 2023-12-12 18:30 | PC.NURSE ---
shift note:Pt t&r for comfort. LS dim bases and clr upper lobes. Pt has moderate amount of clr thick phlegm this a.m with cough. dressing to lower anus packed with wet 4x4 and covered with dry 4x4. edges around wound intact with clean red wound bed. upper anus wound vac in place and patent with moderate amount of serous drainage. Upper coccyx wound quarter size stage 2 with sanguinous drainage and slight smell. New sacral mepilex applied to site. Pt medicated with oxydocone per d.o prior to drsg change. PICC line patent with flush and drsg c.d.i. pt delacruz patent with 100cc clr yellow urine. pt medicated for 5-8/10 rectal and rt hip pain x2 with oxycodone. pt states medication relieved pain.
[2023-12-12 20:00] VITALS: BP 131/55; PULSE 87; RESP 18; TEMP 36.5; O2SAT 94
[2023-12-12] MEDS: ENOXAPARIN 40 MG/0.4 ML INJ SUBCUT (20:46)
[2023-12-12 22:50] VITALS: BP 126/70; PULSE 92; RESP 18; RESP 20; TEMP 36.4; O2SAT 95
[2023-12-13 02:53] VITALS: BP 131/60; PULSE 84; RESP 20; TEMP 36.4; O2SAT 95
[2023-12-13] MEDS: OXYCODONE 5 MG TABLET 7.5 MG PO ×3 (05:22→13:45)
--- NOTE | 2023-12-13 06:56 | PC.NURSE ---
-: pleasant and cooperative. T&R. BiPAP on from . Pt woke around 05 coughing, was able to expel thick sputum. Cristobal patent and draining. Dressing on Coccyx CDI. Dressing change to tunneling wound near anus. Wound vac functioning properly at bedside.
[2023-12-13 07:00] VITALS: BP 133/82; PULSE 88; RESP 16; TEMP 36.5; O2SAT 91
[2023-12-13 07:15] LABS: Albumin* 2.3 g/dL (3.3-5.0); Chloride* 100 mmol/L (96-114); Potassium* 4.3 mmol/L (3.6-5.1); Sodium* 134 mmol/L (135-149)
[2023-12-13 07:17] LABS: Creatinine* 0.2 mg/dL (0.5-1.5); Est. Creatinine Clearance* 34.38; Estimated Glomerular Filt Rate 121 ml/min
[2023-12-13 07:18] LABS: Alanine Aminotransferase* 15 U/L (4-35); Alkaline Phosphatase* 145 U/L (40-150); Anion Gap 3 mEq/L (7-15); Aspartate Amino Transferase* 23 U/L (12-35); Bilirubin Total* 0.4 mg/dL (0.1-1.5); Blood Urea Nitrogen* 8 mg/dL (7-30); Carbon Dioxide* 31 mmol/L (20-32); Gamma Glutamyl Transpeptidase* 92 U/L (8-55); Glucose* 77 mg/dL (60-115); Total Protein* 4.6 g/dL (6.0-8.3)
[2023-12-13 07:19] LABS: Calcium* 8.3 mg/dL (8.4-10.6)
[2023-12-13 07:21] LABS: C Reactive Protein* 4.7 mg/dL (0.5-1.0)
[2023-12-13 07:23] LABS: Hematocrit 33.2 % (33.0-51.0); Hemoglobin* 9.9 gm/dL (12.0-16.0); Mean Corpuscular HGB Conc 30 gm/dL (32-36); Mean Corpuscular Hemoglobin 27 pg (26-34); Mean Corpuscular Volume 90 fL (80-100); Platelet Count* 415 K/uL (140-440); White Blood Count* 18.94 K/uL (4.50-11.00)
[2023-12-13 07:26] LABS: Slide Review Reflex No
[2023-12-13] MEDS: OMEPRAZOLE 20 MG CAPSULE DR PO (08:25)
[2023-12-13] MEDS: LACTOBACILLUS ACIDOPHILUS 1 TABLET 1 TAB PO (08:26)
[2023-12-13] MEDS: POTASSIUM CHLORIDE 10 MEQ CAPSULE ER 20 MEQ PO (08:26)
[2023-12-13 08:40] LABS: ABG PCO2 54 mmHG (35-45); Base Excess ABG 8.9 mmol/L (-3.0-3.0); Carboxyhemoglobin* 1.2 % (0.0-5.0); HCO3 ABG 35 mmol/L (21-28); Oxygen Saturation ABG 43 % (92-100); TCO2 ABG 33 mmol/l (21-30); pH ABG 7.42 (7.35-7.45)
[2023-12-13 08:42] LABS: PO2 ABG < 30.1 mmHG (80-105)
[2023-12-13] MEDS: GABAPENTIN 300 MG CAPSULE PO ×2 (09:27→13:44)
[2023-12-13] MEDS: predniSONE 5 MG TABLET 10 MG PO (09:28)
[2023-12-13] MEDS: SENNOSIDES/DOCUSATE TABLET 1 TAB PO (09:28)
[2023-12-13] MEDS: SODIUM CHLORIDE 0.9 % (FLUSH) 10 ML SYRINGE 5 ML IVF (09:29)
[2023-12-13] MEDS: METOPROLOL SUCCINATE (XL) 50 MG TAB PO (09:30)
[2023-12-13 12:19] VITALS: RESP 22; O2SAT 92
--- NOTE | 2023-12-13 12:27 | RESP.RT ---
Patient used Home BiPAP last night for 5 hours, 45 minutes, removed for coughing large amount secretions. Discussed use of BiPAP and humidification with patient. ABG's this AM, mixed venous sample. PEP with Aerobika with patient, fair chest shake, nonproductive cough promoted, patient used well. Understands use, and need to mobilize secretions.
[2023-12-13] MEDS: CEFPODOXIME PROXETIL 200 MG TABLET PO (12:41)
--- NOTE | 2023-12-13 15:02 | P.DS_ITS ---
DS: Providers Provider Date Seen: 12/13/23 Date of admission: 12/08/23 20:38 Primary care physician: Flo Mckeon MD Admitting Clinician: Lucía Espinoza MD Attending Physician on discharge: Antonio Kline MD Date of Discharge: 12/13/23 DS: Diagnosis Discharge Diagnosis (1) Sepsis: Status: Acute Problem details: Evidence of sepsis on admission 12/09/2023. Sepsis resolved with treatment (2) UTI (urinary tract infection): Status: Acute Problem details: Ecoli. c/s reviewed. afebrile. sepsis markers resolving. cipro/cefempime --> ceftriaxone --> vantin PO . Five more days of Vantin at discharge (3) COPD (chronic obstructive pulmonary disease): Status: Acute Problem details: chronic overlay with central sleep apnea and hypoventilation given long standing paraplegia - -home bipap needed to manage chronic hypercapnia -RT has been essential in working on home DME Used BiPAP her last night in the hospital successfully. (4) Osteomyelitis: Status: Acute Problem details: CT Abd/Pelvis 10/30/22: Chronic right posterior ischial soft tissue ulcer with adjacent deep fluid collection and chronic osteomyelitis of the right posterior iliac bone. Overall, the findings are similar to the prior studies. History of MRSA in wound previously. Current cultures growing group C strep. Had surgical debridement. Had prolonged treatment with oral antibiotics. Monitor clinically. Will need outpatient consultation with Infectious Disease as well as possibly Plastic surgery if definitive treatment of deep ulcer and osteomyelitis are desired (5) Decubitus ulcers: Status: Acute Problem details: Presacral ulcer covered with Mepilex. Deep ulcer to right ischial tuberosity treated with wound VAC, perianal ulcer with seton packed with wet to dry dressing. Needs good wound care and continued to repositioning to offload pressure areas (6) Aure-rectal abscess: Status: Acute Problem details: -Status post Incision and drainage right perianal abscess with seton placement (now removed), Bone biopsy chronic right ischial tuberosity wound 08/28/2023 -bone cultures negative. soft tissue infection was treated with ceftriaxone, flagyl, daptomycin. 14 days total. 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 - wound VAC to be changed 3x a week. home health set up for home visits M/W. Daughter to transport on Fridays. 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 Increasing risk for worsening hypoxia and hypoventilation DS: Summary Hospital Course Hospital Course: 77-year-old female admitted to the hospital from the care home with recent onset of nausea diarrhea fever and cough. She had had a previous COVID infection about 3 weeks prior to admission. She is known to have an indwelling catheter for neurogenic bladder. She is known to have chronic ulceration and probable osteomyelitis of her right ischial to be os of the as well as decubitus ulcers over her presacral area and a perianal abscess with a seton. Treated with broad-spectrum antibiotics. Signs and symptoms of sepsis resolved rela tively quickly. Her decubitus ulcers were not thought to be the source of sepsis. She did have E coli growing in her urine culture and this was treated with appropriate antibiotics. She will be discharged on Vantin for 5 more days of oral antibiotic treatment. Wound care was consulted. She has a wound VAC for her right ischial tuberosity ulcer. This area is also suspected to have osteomyelitis. This will require specialty care at a tertiary hospital if she decides to pursue definitive treatment for this. She will get home nursing care and outpatient wound clinic care in the meantime Status at Discharge Functional status at discharge: bed bound Overall status at discharge: patient is progressing back to baseline Time Spent with Patient Time attestation: Total time spent providing and/or coordinating discharge services: 60 minutes Time spent: Greater than 30 minutes Exam Narrative: Exam Narrative: She is alert and appears in no distress. Respirations are clear to auscultation. Cardiovascular: S1, S2, regular rate and rhythm. No murmur gallop or rub. Abdomen is soft without tenderness or mass. Wounds in the perianal, presacral and right ischial spine area show no significant surrounding erythema or evidence of undrained abscess. Const: Vital Signs, click to edit/add: Vital Signs - 24 hr 12/12/23 20:00 12/12/23 22:50 12/12/23 22:50 Temperature 97.7 F 97.5 F L Pulse Rate [Pulse Oximeter] 87 92 Respiratory Rate 18 18 20 Blood Pressure [Le ft Arm] 131/55 L 126/70 Pulse Oximetry 94 95 Oxygen Delivery Me thod Room Air Room Air Fraction of Inspir ed Oxygen 12/13/23 02:53 12/13/23 08:15 12/13/23 12:19 Temperature 97.5 F L Pulse Rate [Pulse Oximeter] 84 Respiratory Rate 20 22 Blood Pressure [Le ft Arm] 131/60 Pulse Oximetry 95 92 Oxygen Delivery Me thod BiPAP Room Air Room Air Fraction of Inspir ed Oxygen 0.21 Documenting provider has reviewed patient's vital signs: yes DS: Data Data Completed and Pending Completed studies during hospitalization: Procedures Labs on day of discharge: Labs from last 24 hours 12/13/23 12/13/23 08:22 06:15 WBC 18.94 H RBC 3.70 L Hgb 9.9 L Hct 33.2 MCV 90 MCH 27 MCHC 30 L Plt Count 415 ABG pH 7.42 ABG pCO2 54 H ABG pO2 < 30.1 L* ABG HCO3 35 H ABG Total CO2 33 H ABG O2 Saturation 43 L ABG Base Excess 8.9 H Carboxyhemoglobin 1.2 Sodium 134 L Potassium 4.3 Chloride 100 Carbon Dioxide 31 Anion Gap 3 L BUN 8 Creatinine 0.2 L Estimated Creat Clear 34.38 Estimated GFR 121 Glucose 77 Calcium 8.3 L Total Bilirubin 0.4 GGT 92 H AST 23 ALT 15 Alkaline Phosphatase 145 C-Reactive Protein 4.7 H Total Protein 4.6 L Albumin 2.3 L Preliminary micro results at discharge 12/09/23 06:25 Blood Culture - Preliminary Blood NO GROWTH AFTER 96 HOURS 12/08/23 15:37 Blood Culture - Preliminary Blood NO GROWTH AFTER 96 HOURS 12/08/23 16:08 Blood Culture - Preliminary Blood Imaging CT Chest/Ab/Pelvis: Radiologist's impression: INDICATION: Fever. TECHNIQUE: CT chest, abdomen, and pelvis without contrast. COMPARISON: CT PE chest 09/02/2023. CT abdomen and pelvis 08/27/2023. FINDINGS: CHEST: Lungs and pleura: Bibasilar atelectasis. Otherwise no acute infiltrates. No suspicious nodules. No pleural effusions or pneumothorax. Cardiovascular structures: Heart size is normal. Thoracic aorta and main pulmonary artery are normal in caliber. Stable enlarged main pulmonary artery, suggestive of underlying pulmonary hypertension. Aortic, mitral annular, and coronary artery calcifications. Mediastinum and farooq: No mass or adenopathy. Chest wall and axilla: No mass or adenopathy. Bones: Diffuse osteopenia. Scoliosis with thoracolumbar spinal fusion. ABDOMEN AND PELVIS: Liver: Unremarkable. Gallbladder and bile ducts: Status post cholecystectomy. Spleen: Unremarkable. Adrenal glands: Unremarkable. Pancreas: Atrophic. Kidneys: Bilateral nonobstructive renal calculi, including 15 mm calculus in the right renal pelvis. No hydronephrosis. GI tract: Seton in the right perirectal region with resolution of previously seen perirectal abscess. Persistent but decreased adjacent subcutaneous soft tissue gas. Colonic diverticulosis without evidence of diverticulitis. No evidence of obstruction. Lymph nodes: Unremarkable. Vascular structures: Scattered atherosclerotic calcifications. Stable ectatic infrarenal abdominal aorta measuring 2.2 cm. Miscellaneous: Deep right ischial decubitus ulcer. No free air or significant free fluid. Pelvic organs: Cristobal catheter in place. Stable 2.7 cm low-density lesion in the left adnexal, presumably an ovarian cyst. Bones: Diffuse osteopenia. Scoliosis with thoracolumbar spinal fusion. Increased erosion of the right ischial tuberosity. IMPRESSION: 1. Deep right ischial decubitus ulcer with increased erosion of the right ischial tuberosity, concerning for osteomyelitis. 2. Seton in the right perirectal region with resolution of previously seen perirectal abscess. Persistent but decreased adjacent subcutaneous soft tissue gas. 3. Bilateral nonobstructive nephrolithiasis. 4. Bibasilar atelectasis. Otherwise no acute infiltrates. Discharge Plan Discharge Disposition: Home w/ Parent or Adult Date of Admission: 12/08/23 20:38 Attending Provider on Discharge: Roshan Kline Consulting Providers: Soco Malik Dawn M Primary Care Provider: Flo Mckeon Anticipated Discharge Date/Time: 12/13/23 11:00 Discharge Medications: New cefpodoxime 200 mg Tablet 200 mg PO BID Qty: 10 0RF multivitamin Tablet 1 tab PO DAILY Qty: 100 0RF bisacodyl 10 mg suppository 10 mg KS DAILY PRN (Reason: constipation) Qty: 30 0RF zinc sulfate 50 mg zinc (220 mg) capsule 50 mg PO DAILY Qty: 30 0RF ascorbic acid (vitamin C) [Vitamin C] 500 mg tablet 500 mg PO DAILY Qty: 30 0RF gabapentin 300 mg capsule 300 mg PO TID Qty: 90 0RF prednisone 5 mg tablet 10 mg PO DAILY Qty: 60 0RF omeprazole 20 mg capsule,delayed release(DR/EC) 20 mg PO DAILY Qty: 30 0RF metoprolol succinate 50 mg capsule,sprinkle,ER 24hr 50 mg PO DAILY Qty: 30 0RF furosemide 40 mg tablet 40 mg PO QAM Qty: 30 0RF Lactobacillus acidophilus 0.5 mg (100 million cell) tablet 50 mmu cells PO TID Qty: 90 0RF loperamide 2 mg capsule 2 mg PO TID PRN (Reason: loose stool) Qty: 30 0RF potassium chloride 10 mEq tablet extended release 20 meq PO BID Qty: 120 0RF triamcinolone acetonide 0.1 % cream 1 applic topical BID PRNQty: 80 0RF acetaminophen 500 mg capsule 1,000 mg PO TID PRNQty: 100 0RF benzonatate 100 mg capsule 100 mg PO TID PRN (Reason: cough) Qty: 30 0RF oxycodone 5 mg tablet 7.5 mg PO Q6H PRN (Reason: pain) Qty: 180 0RF miconazole nitrate 2 % powder 1 applic topical BID PRNQty: 85 0RF carboxymethylcellulose sodium [Refresh Plus] 0.5 % dropperette 1 drp ophthalmic (eye) TID Qty: 70 0RF Discontinued multivitamin [Daily Multi-Vitamin] Tablet 1 tab PO DAILY ascorbate calcium (vitamin C) 500 mg tablet 500 mg PO DAILY gabapentin 300 mg capsule 300 mg PO TID Qty: 270 3RF prednisone 5 mg tablet 10 mg PO DAILY Qty: 180 3RF miconazole nitrate 2 % powder 1 applic topical BID acetaminophen 500 mg capsule 1,000 mg PO Q8H PRN carboxymethylcellulose sodium [Refresh Plus] 0.5 % dropperette 1 drp ophthalmic (eye) TID benzonatate 100 mg capsule 100 mg PO TID PRN oxycodone 5 mg tablet 7.5 mg PO QID PRN (Reason: pain) bisacodyl [Gentle Laxative (bisacodyl)] 10 mg suppository 10 mg KS BID PRN zinc sulfate [Orazinc] 50 mg zinc (220 mg) capsule 100 mg PO DAILY metoprolol succinate 50 mg tablet extended release 24 hr 50 mg PO DAILY furosemide 40 mg Tablet 40 mg PO DAILY@0800 Qty: 30 0RF potassium chloride 10 mEq Capsule, Extended Release 20 meq PO BIDWM Qty: 60 0RF loperamide 2 mg Capsule 2 mg PO TIDWM Qty: 30 0RF triamcinolone acetonide 0.1 % Ointment 1 applic topical BID PRNQty: 80 0RF Lactobacillus acidophilus 0.5 mg (100 million cell) Tablet 25 mmu cells PO TIDWM Qty: 180 0RF Rx Instructions: ok to substitute with what's in stock omeprazole 20 mg capsule,delayed release(DR/EC) 20 mg PO BID Qty: 180 3RF Discharge Orders: Discharge Order (Routine); Ordered 12/13/23 Ordered By: Roshan Kline Patient Education: Cefpodoxime Proxetil (By mouth), Cristobal Catheter Placement and Care (DC), BiPAP (GEN), PEP Therapy (DC), COVID-19 (Coronavirus Disease 2019) (DC), COVID-19 and Chronic Health Conditions (DC), How to Change a Catheter Drainage Bag (DC) Additional Instructions: Wound care from [facility] to start on 12/15/23 Activity Level: Activity as Tolerated and Other Activity Detail: reposition in bed to protect pressure areas on skin Discharge Diet: Regular Follow Up Appointments: Flo Mckeon MD [Primary Care Provider] - 12/18/23 9:30 am ([facility] for follow up in 1-2 weeks) Forms: [facility] Info Instructions
--- NOTE | 2023-12-13 15:50 | PC.NURSE ---
shift note: pt premedicated prior to drsg change. family present during wound vac change. wound bed clean and beefy red. lower anus drsg done with wet to dry 4x4, then toped with dry 4x4. Wound bed clean and beefy red. minimal serosang drainage on packing removed from wound bed. Sacral wound cleansed with sterile water then redressed with mepilex sacral drsg. Lt great toe dressing changed with new 4x4 mepilex. small amount of bloody drainage. area has small dime size scab. Daughter witnessed drsg changes and wounds. Questions addressed during wound cares. Rt bicept picc line dc'd intact. area wrapped with coban for 15 mins then 2x2 and paper tape applied to site. Reviewed dc instructions and copies sent with pt. Pt medicated with oxycodone prior to dc. Meds ordered to [facility]. Belongings sent with pt at md. paper work for f/u visit and home care sent with pt at md. nubia patent,
== END 2023-12-13 14:30 | disposition home or self-care (01) | DRG 871 ==
LOC: ED 17:15 → MEDSURG 17:40
PROVIDERS: Family Medicine; Admitting Provider Family Medicine; Emergency Provider Family Medicine; PCP Family Medicine; Visit Provider Family Medicine
DX: A41.51 Sepsis due to Escherichia coli [E. coli] (principal); L89.44 Pressure ulcer of contiguous site of back, buttock and hip, stage 4; N39.0 Urinary tract infection, site not specified; Z16.24 Resistance to multiple antibiotics; G82.20 Paraplegia, unspecified; M86.9 Osteomyelitis, unspecified; J98.11 Atelectasis; J96.12 Chronic respiratory failure with hypercapnia; E87.1 Hypo-osmolality and hyponatremia; K61.1 Rectal abscess; N31.9 Neuromuscular dysfunction of bladder, unspecified; F11.90 Opioid use, unspecified, uncomplicated; M06.9 Rheumatoid arthritis, unspecified; I10 Essential (primary) hypertension; Z97.8 Presence of other specified devices; G47.30 Sleep apnea, unspecified; G89.29 Other chronic pain; E87.6 Hypokalemia; R19.7 Diarrhea, unspecified; R00.0 Tachycardia, unspecified; J44.89 Other specified chronic obstructive pulmonary disease; L89.156 Pressure-induced deep tissue damage of sacral region
CPT/HCPCS: 36415; 36573; 36589; 36600; 51701; 71250; 74176; 80053; 80069; 80076; 81001; 82803; 82977; 83605; 83735; 84145; 84484; 85025; 85027; 86140; 87040; 87081; 87086; 87186; 87426; 87493; 87631; 93005; 94660; 94664; 94761; 99285; A9270; C1751; J0692; J0696; J0744; J1650; J2270; J2405; J3480; J7030; J7120; J7512

== ENCOUNTER 2023-12-19 07:57 | Outpatient (CLI) | payer MEDICARE, SELFPAY | END 2023-12-19 07:58 | disposition home or self-care (01) | LOC: WOUND 07:57 | PROVIDERS: PCP Family Medicine; Visit Provider Nurse Practitioner Family | DX: M86.68 Other chronic osteomyelitis, other site (principal); L89.314 Pressure ulcer of right buttock, stage 4; L89.153 Pressure ulcer of sacral region, stage 3; L89.620 Pressure ulcer of left heel, unstageable; M06.9 Rheumatoid arthritis, unspecified; G82.20 Paraplegia, unspecified; Z99.3 Dependence on wheelchair | CPT/HCPCS: 11042; G0463 ==

== ENCOUNTER 2023-12-26 09:03 | Outpatient (CLI) | payer MEDICARE, SELFPAY | END 2023-12-26 09:04 | disposition home or self-care (01) | PROVIDERS: PCP Family Medicine; Visit Provider Nurse Practitioner Family | DX: M86.68 Other chronic osteomyelitis, other site (principal); L89.314 Pressure ulcer of right buttock, stage 4; L89.153 Pressure ulcer of sacral region, stage 3; L89.620 Pressure ulcer of left heel, unstageable; G82.20 Paraplegia, unspecified; Z99.3 Dependence on wheelchair | CPT/HCPCS: 11042; 11043; 97597; 97605 ==

== ENCOUNTER 2024-01-07 17:20 | Emergency (ER) | payer MEDICARE, SELFPAY ==
[2024-01-07 17:26] VITALS: BP 91/47; PULSE 62; RESP 14; TEMP 36.7; O2SAT 96
--- NOTE | 2024-01-07 18:06 | ED.GENADULT ---
HPI - General Adult General Chief complaint: Weakness Stated complaint: abdominal pain, uti Time Seen by Provider: 01/07/24 17:23 History of Present Illness HPI narrative: This 78-year-old female comes in reporting some lower abdominal pain and suspicion of urinary tract infection. She is paraplegic and states that she has waited too long in the past and almost became septic due to urinary tract infection. She also reports a E area of redness and warmth on her left lateral lower abdomen suspicious for cellulitis. She arrives here with normal vital signs. She does have systolic blood pressure in the 90s but this is not new for her. She is upright and not showing any sign of lightheadedness. She has a chronic indwelling urinary catheter. Related Data Home Medications Medication Instructions Recorded Confirmed oxycodone 5 mg tablet 7.5 mg PO Q4H PRN pain 12/18/23 Previous Rx's Medication Instructions Recorded cefpodoxime 200 mg tablet 200 mg PO BID #10 tabs 12/12/23 Lactobacillus acidophilus 0.5 mg 50 mmu cells PO TID #90 tabs 12/13/23 (100 million cell) tablet acetaminophen 500 mg capsule 1,000 mg (2 x 500 mg) PO TID PRN 12/13/23 #100 caps ascorbic acid (vitamin C) 500 mg 500 mg PO DAILY #30 tabs 12/13/23 tablet (Vitamin C) bisacodyl 10 mg rectal suppository 10 mg [place] DAILY PRN constipation 12/13/23 #30 ea furosemide 40 mg tablet 40 mg PO QAM #30 tabs 12/13/23 gabapentin 300 mg capsule 300 mg PO TID #90 caps 12/13/23 loperamide 2 mg capsule 2 mg PO TID PRN loose stool #30 12/13/23 caps metoprolol succinate 50 mg capsule 50 mg PO DAILY #30 ea 12/13/23 sprinkle, ext. release 24 hr miconazole nitrate 2 % topical 1 applic topical BID PRN #85 grams 12/13/23 powder multivitamin 1 tab PO DAILY #100 tabs 12/13/23 potassium chloride 10 mEq 20 meq (2 x 10 mEq) PO BID #120 12/13/23 tablet,extended release tabs prednisone 5 mg tablet 10 mg (2 x 5 mg) PO DAILY #60 tabs 12/13/23 triamcinolone acetonide 0.1 % 1 applic topical BID PRN #80 grams 12/13/23 topical cream zinc sulfate 50 mg zinc (220 mg) 50 mg PO DAILY #30 caps 12/13/23 capsule cephalexin 500 mg capsule 500 mg PO TID 7 days #21 caps 01/07/24 Allergies Allergy/AdvReac Type Severity Reaction Status Date / Time piperacillin Allergy Intermediate Rash Verified 01/07/24 17:30 tazobactam Allergy Intermediate Rash Verified 01/07/24 17:30 vancomycin Allergy Unknown Anaphylactic Verified 01/07/24 17:30 shock with this medication. Also senior care demario Review of Systems Status of ROS: Reports: 10 or more systems reviewed and unremarkable except as noted in History and below Narrative: Constitutional: No fevers, no weight gain or loss. Eyes: No discharge. No vision changes. HENT: No congestion, no sore throat, no ear pain. Cardiovascular: No chest pain, no palpitations. Respiratory: No shortness of breath, no wheezes, no cough. Gastrointestinal: No vomiting, no diarrhea. Lower abdominal pain. Genitourinary: Chronic indwelling Cristobal catheter. Musculoskeletal: Normal range of motion. Skin: Area of warmth and erythema with some tenderness in the left lateral lower abdomen. Neurological: No dizziness, weakness, sensory change, speech change. Endo/Heme/Allergies: No bruising or bleeding. No polydipsia. Pysch: no suicidality, no anxiety, no insomnia. All other systems reviewed and are negative. 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, stage 4 ?L89.44 - Pressure ulcer of contiguous site of back, buttock and hip, stage 4 (ICD-10) Rheumatoid arthritis ?M06.9 - Rheumatoid arthritis, unspecified (ICD-10) HTN (hypertension) ?I10 - Essential (primary) hypertension (ICD-10) Cristobal catheter in place ?Z97.8 - Presence of other specified devices (ICD-10) Sleep apnea ?G47.30 - Sleep apnea, unspecified (ICD-10) Paraplegia ?G82.20 - Paraplegia, unspecified (ICD-10) Acute on chronic anemia ?D64.9 - Anemia, unspecified (ICD-10) Paraplegia ?G82.20 - Paraplegia, unspecified (ICD-10) Chronic pain ?G89.29 - Other chronic pain (ICD-10) Tubular adenoma of colon ?D12.6 - Benign neoplasm of colon, unspecified (ICD-10) 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 - Acute transverse myelitis in demyelinating disease of central nervous system (ICD-10) Septic shock ?A41.9 - Sepsis, unspecified organism (ICD-10) ?R65.21 - Severe sepsis with septic shock (ICD-10) Recurrent urinary tract infection ?N39.0 - Urinary tract infection, site not specified (ICD-10) Osteoporosis ?M81.0 - Age-related osteoporosis without current pathological fracture (ICD-10) History of methicillin resistant Staphylococcus aureus infection ?Z86.14 - Personal history of Methicillin resistant Staphylococcus aureus infection (ICD-10) Surgical History Status post debridement ?Z98.890 - Other specified postprocedural states (ICD-10) Social History (Updated 12/08/23 @ 23:55 by Lucía Espinoza MD) Narrative: Mary has recently been living at [facility], daughter Elvi (MDM if needed) is hoping to bring her home with family services assistant caregiving. has cognitive impairment. At this time (12/08/23), she is requesting DNR/DNI status. Nonsmoker, no ETOH use. What is your current living situation?: I presently have a place to live Problems where you live: no known problems Problems where you live details: NA In the past 12 months, utilities in danger of being shut off: unable to answer In past 12 months, lack of transportation kept you from medical appts, meetings, work, or getting things needed for daily living: unable to answer In the past 12 mos, have been you worried that your food would run out before you had money to buy more?: unable to answer In the past 12 mos, the food you bought just didn't last and you didn't have money to buy more?: unable to answer Highest level of school completed/degree received: decline to answer Smoking Status: Never smoker Do you use any of these nicotine containing products: None and E-Cigarettes Second hand tobacco smoke exposure: No How often do you have a drink containing alcohol: never How often do you have six or more drinks on one occasion: Never AUDIT-C Alcohol total score: 0 Non-prescribed substance use: denies use Caffeine: No How often does anyone, including family, friends and others, physically hurt you: unable to answer How often does anyone, including family, friends and others, insult or talk down to you: unable to answer How often does anyone, including family, friends and others, threaten you with harm: unable to answer How often does anyone, including family, friends and others, scream or curse at you: unable to answer Little interest or pleasure in doing things: several days Feeling down, depressed, or hopeless: several days service: No Exam Narrative: Exam Narrative: Constitutional: Well-developed, well-nourished, no acute distress. HEENT: Normocephalic, atraumatic. Neck: Normal range of motion. Nontender. Supple. Heart: Regular. No murmurs. Normal rate. Intact distal pulses. Lungs: No chest discomfort. No wheezes, rhonchi, or rales. Abdomen: Normal bowel sounds. Nontender. No rebound tenderness. Genitalia: Deferred. Back: No midline tenderness. Normal range of motion. Extremities: Paraplegia. Skin: Intact. No rash. Area of erythema in the left lateral lower abdomen extending around toward the back typical of cellulitis. Neurologic: No altered sensation. No weakness. Alert and oriented. Psychiatric: No suicidality. No anxiety or depression. No insomnia. Nursing notes and vitals signs are reviewed. Const: Vital Signs, click to edit/add: Vital Signs - 24 hr 01/07/24 17:26 01/07/24 18:38 Temperature 98.0 F 97.6 F Pulse Rate [Right Pulse Oximeter] 62 Respiratory Rate 14 Blood Pressure [Ri ght Upper Arm] 91/47 L Pulse Oximetry 96 Oxygen Delivery Me thod Room Air Course Vital Signs Vital signs: Initial Vital Signs Temperature 98.0 F 01/07/24 17:26 Temperature Source Temporal Artery Scan 01/07/24 17:26 Pulse Rate 62 01/07/24 17:26 Pulse Rhythm Regular 01/07/24 17:26 Pulse Strength 3+ Normal 01/07/24 17:26 Respiratory Rate 14 01/07/24 17:26 Blood Pressure 91/47 L 01/07/24 17:26 Blood Pressure Mean 61 L 01/07/24 17:26 Blood Pressure Position Sitting 01/07/24 17:26 Pulse Oximetry 96 01/07/24 17:26 Oxygen Delivery Method Room Air 01/07/24 17:26 Vital Signs Temperature 98.0 F 01/07/24 17:26 Pulse Rate 62 01/07/24 17:26 Respiratory Rate 14 01/07/24 17:26 Blood Pressure 91/47 L 01/07/24 17:26 Pulse Oximetry 96 01/07/24 17:26 Oxygen Delivery Method Room Air 01/07/24 17:26 Temperature 97.6 F 01/07/24 18:38 Pulse Rate 62 01/07/24 17:26 Respiratory Rate 14 01/07/24 17:26 Blood Pressure 91/47 L 01/07/24 17:26 Pulse Oximetry 96 01/07/24 17:26 Oxygen Delivery Method Room Air 01/07/24 17:26 Medical Decision Making MDM Narrative Medical decision making narrative: This patient comes in with suspicion of urinary tract infection. She does have risk for this as she has paraplegia and a chronic indwelling Cristobal catheter. She does report some lower abdominal discomfort. A urine sample is obtained but given her symptoms also of cellulitis on her left abdominal area I decided to treat with an intramuscular injection of Rocephin and a prescription for Keflex. This will likely cover both matters. The patient does have reassuring vital signs. I did discuss the role of lab and imaging tests with the patient but in a process of shared decision-making she declined these for now. A prescription for Keflex is provided. Lab Data Labs: Lab Results 01/07/24 Range/Units 18:30 Urine Color Yellow (Yellow) Urine Appearance Slightly Cloudy A (Clear) Urine pH 5.5 (5.0-8.5) Ur Specific [place] 1.010 (1.000-1.030) Urine Protein Negative (Negative) Urine Glucose (UA) Negative (Negative) Urine Ketones Negative (Negative) Urine Blood Negative (Negative) Urine Nitrite Negative (Negative) Urine Bilirubin Negative (Negative) Urine Urobilinogen 1.0 (0.2-1.0) Ur Leukocyte Esterase 1+ A (Negative) Discharge Plan Discharge Clinical Impression: UTI (urinary tract infection), Paraplegia, Cellulitis Patient Disposition: Home w/ Parent or Adult Condition: Unchanged Additional Instructions: Take medication as prescribed. Follow up with MD return if worsening. Prescriptions: New cephalexin 500 mg capsule 500 mg PO TID 7 Days Qty: 21 0RF No Action oxycodone 5 mg tablet 7.5 mg PO Q4H PRN (Reason: pain) cefpodoxime 200 mg Tablet 200 mg PO BID Qty: 10 0RF multivitamin Tablet 1 tab PO DAILY Qty: 100 0RF bisacodyl 10 mg suppository 10 mg [place] DAILY PRN (Reason: constipation) Qty: 30 0RF zinc sulfate 50 mg zinc (220 mg) capsule 50 mg PO DAILY Qty: 30 0RF ascorbic acid (vitamin C) [Vitamin C] 500 mg tablet 500 mg PO DAILY Qty: 30 0RF gabapentin 300 mg capsule 300 mg PO TID Qty: 90 0RF prednisone 5 mg tablet 10 mg PO DAILY Qty: 60 0RF metoprolol succinate 50 mg capsule,sprinkle,ER 24hr 50 mg PO DAILY Qty: 30 0RF furosemide 40 mg tablet 40 mg PO QAM Qty: 30 0RF Lactobacillus acidophilus 0.5 mg (100 million cell) tablet 50 mmu cells PO TID Qty: 90 0RF loperamide 2 mg capsule 2 mg PO TID PRN (Reason: loose stool) Qty: 30 0RF potassium chloride 10 mEq tablet extended release 20 meq PO BID Qty: 120 0RF triamcinolone acetonide 0.1 % cream 1 applic topical BID PRNQty: 80 0RF acetaminophen 500 mg capsule 1,000 mg PO TID PRNQty: 100 0RF miconazole nitrate 2 % powder 1 applic topical BID PRNQty: 85 0RF Follow Up/Referrals: Flo Mckeon MD [Primary Care Provider] - Stand Alone Forms: [facility] Info Instructions
[2024-01-07 18:38] VITALS: TEMP 36.4
[2024-01-07 18:39] LABS: Appearance Urine Slightly Cloudy (Clear); Bilirubin Urine Negative (Negative); Blood Urine Negative (Negative); Color Urine Yellow (Yellow); Glucose Urine Negative (Negative); Ketones Urine Negative (Negative); Leukocyte Esterase Urine 1+ (Negative); Nitrite Urine Negative (Negative); Protein Urine Negative (Negative); pH Urine 5.5 (5.0-8.5)
[2024-01-07 18:53] LABS: Bacteria Urine Moderate; Calcium Oxalate Crystals Urine Few; RBC Urine 0-2 (0-2); Squamous Epithelial Cell Urine Few (None-Few)
[2024-01-07] MEDS: LIDOCAINE 1% 5 ml (pf) 5 ML VIAL 2.1 ML IM (18:55)
[2024-01-07] MEDS: cefTRIAXone 1 GM VIAL IM (18:55)
[2024-01-07] MEDS: OXYCODONE 5 MG TABLET 10 MG PO (18:56)
--- NOTE | 2024-01-15 12:13 | ED.NURSE ---
pt and pt daughter called in for clarification on follow up call from Anna Bradley RN. 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
== END 2024-01-07 19:08 | disposition home or self-care (01) ==
PROVIDERS: Emergency Provider Emergency Medicine Emergency Medical Services; PCP Family Medicine
DX: N39.0 Urinary tract infection, site not specified (principal); L03.311 Cellulitis of abdominal wall; G82.20 Paraplegia, unspecified
CPT/HCPCS: 81001; 87086; 87186; 96372; 99284; A9270; J0696

== ENCOUNTER 2024-01-09 08:11 | Outpatient (CLI) | payer MEDICARE, SELFPAY ==
[2024-01-09 11:07] LABS: C.Difficile Negative (Negative); CDIFFEPI 027 PRESUMPTIVE NEGATIVE (Negative)
--- OUTSIDE RECORDS SUMMARY | 2024-01-16 12:03 | XMS_ITS | Clinical Summary ---
Author Name Unknown Organization [facility] Address [address] [place] [address] Care Team Providers Care Scientific Helper Name Role Phone Elsewhere, Pcp Primary Care Provider Unavailabl e Source Comments Patient records contain information from all sites at [facility]. For routine questions regarding patient records, call [phone] during business hours, M-F 8:00 AM - 5:00 PM Central Time. Record requests for emergency care only can be directed to [phone] at any time.[facility] Allergies Active Allergy Reactions Criticality Noted Date Comments Piperacillin Other (see comments) 09/18/2023 Per SNF Per patient, has tolerated Augmentin Tazobactam Other (see comments) 09/18/2023 Per SNF Vancomycin Other (see comments) 09/18/2023 Per SNF Medications Medication Sig Dispensed Refills Start Date End Date Status multivitamin tablet Take 1 tablet by mouth daily. 0 09/17/2023 Active zinc sulfate (ZINCATE) 220 (50 mg zinc) capsule Take 100 mg by mouth daily. 0 09/18/2023 Active omeprazole (PriLOSEC) [address] capsule Take 20 mg by mouth 2 (two) times a day before breakfast and dinner. 0 09/18/2023 Active gabapentin (NEURONTIN) 300 mg capsule Take 300 mg by mouth 3 (three) times a day. 0 09/17/2023 Active Lactobacillus acidophilus 100 million cell capsule Take 1 capsule by mouth daily. In evening 0 09/17/2023 Active triamcinolone (KENALOG) 0.1 % ointment Apply 1 Application topically 2 (two) times a day as needed for rash. 0 09/17/2023 Active acetaminophen (TYLENOL) 500 mg tablet Take 2 tablets (1,000 mg total) by mouth 3 (three) times a day. 0 09/19/2023 Active bisacodyL (DULCOLAX) 10 mg suppository Insert 10 mg into the rectum 2 (two) times a day as needed for constipation. 0 Active ascorbic acid, vitamin C, (VITAMIN C) 1,000 mg tablet Take 1 tablet (1,000 mg total) by mouth daily. 30 tablet 0 10/27/2023 Active predniSONE (DELTASONE) 10 mg tablet Take 1 tablet (10 mg total) by mouth daily. Resume usual dose of prednisone 10 mg daily on 10/27/23 30 tablet 0 10/27/2023 Active metoprolol succinate (TOPROL-XL) 50 mg 24 hr tablet Take 1 tablet (50 mg total) by mouth daily. Do not crush or chew. 30 tablet 0 10/27/2023 Active miconazole (MICATIN) 2 % powder Apply 1 Application topically 2 (two) times a day. Apply to abdominal and groin folds. 43 g 0 10/27/2023 Active carboxymethylcellul ose (REFRESH PLUS) 0.5 % ophthalmic solution Administer 1 drop into both eyes 3 (three) times a day as needed for dry eyes. 70 each 0 10/27/2023 Active furosemide (LASIX) 40 mg tablet Take 1 tablet (40 mg total) by mouth daily. 30 tablet 0 10/27/2023 Active ipratropium (ATROVENT) 0.02 % nebulizer solution Inhale 2.5 mL (500 mcg total) by nebulization 3 (three) times a day. 75 mL 0 10/27/2023 Active oxyCODONE (ROXICODONE) 15 mg immediate release tabletIndications:C hronic Pain/Nonacute Pain Take 0.5 tablets (7.5 mg total) by mouth 4 (four) times a day as needed for moderate pain or score 4-6 of 10 or severe pain or score 7-10 of 10 Indication: Chronic Pain/Nonacute Pain. (at least 4 hours apart) 30 tablet 0 11/25/2023 Active loperamide (IMODIUM A-D) 2 mg capsule Take 2 mg by mouth 3 (three) times a day before meals. 0 Active DME Bi-level PAPIndications:Obst ructive Sleep Apnea Adult DME Order 1 each 0 11/28/2023 Active potassium chloride (KLOR-CON M/KDUR) 20 mEq ER tablet Take 1 tablet (20 mEq total) by mouth daily with breakfast. 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 Edema Localized 09/19/2023 Diarrhea 09/19/2023 Benign Neoplasm Colon 09/19/2023 Anemia 09/19/2023 Hypertension Essential Primary 09/19/2023 Corticosteroid Treatment Retirement Systemic 05/2023 Paraplegia 09/19/2023 Osteoporosis 06/28/2021 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 01/18/2014 Pain Low Back Chronic 01/18/2014 Neurogenic Bladder 01/18/2014 Arthritis Rheumatoid 01/18/2014 Resolved Problems Problem Noted Date Diagnosed Date Resolved Date Pneumonitis Due To Inhalatio n Of Food And Vomit 10/19/2023 10/31/2023 Infection Urinary Catheter Indwelling Initial 10/19/19 24 10/31/2023 Pneumonia 10/19/2023 10/31/2023 Acute Respiratory Failure With Hypoxia 10/18/2023 10/31/2023 Acute Respiratory Failure With Hypercapnia 09/19/2023 10/14/2023 Acute And Chronic Respirator y Failure With Hypoxia 09/19/2023 10/14/2023 Other Acidosis 09/19/2023 11/06/2023 Encounters Date Type Department Care Team Description 12/01/2023 Orders Only Department of Physical Medicine and Rehabilitation in [place], [place] [address] [place] [address] Charlotte Craig, [facility]INE[facility] 12/01/2023 Clinical Communication Department of Pulmonary Medicine in [place] [id number] [place] [address] Mercy Poe P.A.-C. 11/28/2023 4:00 PM LABOR RELATIONS OFFICER External Outreach [facility] in [address] [address] Osiris Otero APRN, C.N.P., R.N. 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 11/26/2023 Documentation Senior Services in [address] [address] Osiris Otero APRN, C.N.P., R.N. 11/25/2023 Clinical Communication [facility] in [address] [address] Osiris Otero APRN, C.N.P., R.N. 11/10/2023 Orders Only Senior [facility] in [address] [address] Osiris Otero APRN, C.N.P., R.N. Neurogenic Bladder (Primary Dx) 11/07/2023 9:00 AM LABOR RELATIONS OFFICER External Outreach [facility] in [address] [address] Fernando Renee M.D. 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 Hypokalemia Discharge Disposition: Home or Self Care 10/31/2023 10:00 AM LABOR RELATIONS OFFICER External Outreach [facility] in [place] [address] [place] [address] Osiris Otero APRN, C.N.P., R.N. 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 Edema Localized Discharge Disposition: Home or Self Care 10/20/2023 10:00 AM LABOR RELATIONS OFFICER Ancillary Procedure Department of Family Medicine 10/19/2023 10:30 AM LABOR RELATIONS OFFICER Ancillary Procedure Department of Emergency Medicine 10/19/2023 10:25 AM LABOR RELATIONS OFFICER Ancillary Procedure Department of Emergency Medicine 10/19/2023 10:15 AM LABOR RELATIONS OFFICER Ancillary Procedure Department of Emergency Medicine 10/19/2023 10:10 AM LABOR RELATIONS OFFICER Ancillary Procedure Department of Emergency Medicine 10/19/2023 9:50 AM LABOR RELATIONS OFFICER Ancillary Procedure Department of Emergency Medicine 10/19/2023 2:09 AM LABOR RELATIONS OFFICER - 10/27/2023 2:06 PM LABOR RELATIONS OFFICER Hospital Encounter [facility], Second Floor [address] [place] [address] Pancho Burr M.D. [place], Christopher, M.D. Hayes, Lisa M, M.D. Benson, Troy, M.D. 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 Pneumonia (Primary Dx); Hypoxia Discharge Disposition: [facility] 10/18/2023 Intake [facility] 10/17/2023 Orders Only [facility] in [place] [address] [place] [address] Osiris Otero, AMIRAH, C.N.P., R.N. from Last 3 Months Immunizations Name Administration Dates Next Due DT, Pediatric 03/23/1987 Influenza (IM) Preservative Free 07/18/2009 Influenza, Unspecified 07/18/2009 Td Preservative Free (TENIVAC, DECAVAC) 04/22/20 15 Tdap 04/22/2018,04/22/2015 influenza vaccine quad (FLUZ ONE/FLUARIX) (6 months and older)(PF) 07/18/2009 Social History Tobacco Use Types Packs/Day Years Used Date Smoking Tobacco: Never Smokeless Tobacco: Never Tobacco Cessation:Counseling Given: Not Answered Alcohol Use Standard Drinks/Week Comments Defer 0 (1 standard drink = 0.6 oz pur e alcohol) [facility] Utilities Answer Date Recorded In the past 12 months has e electric, gas, oil, or water company threatened to shut off services in your home? No 10/19/2023 Humiliation, Afraid, Rape, and Kick questionnair e Answer Date Recorded Within the last year, have y ou been afraid of your partner or ex-partner? No 10/19/2023 Within the last year, have y ou been humiliated or emotionally abused in other ways by your partner or ex-partner? No Within the last year, have y ou been kicked, hit, slapped, or otherwise physically hurt by your partner or ex-partner? No 10/19/2023 Within the last year, have y ou been raped or forced to have any kind of sexual activity by your partner or ex-partner? No 10/19/2023 Hunger Vital Sign Answer Date Recorded Within the past 12 months, y ou worried that your food would run out before you got the money to buy more. Never true 10/19/19 24 Within the past 12 months, t he food you bought just didn't last and you didn't have money to get more. Never true 10/19/2023 PRAPARE - Transportation Answer Date Re corded In the past 12 months, has l ack of transportation kept you from medical appointments or from getting medications? No 04/2024 In the past 12 months, has l ack of transportation kept you from meetings, work, or from getting things needed for daily living? No 10/19/2023 Nutrition Answer Date Recorded Nutrition: EVOO Fat Source Unknown 09/17 Nutrition: Servings of Fruits/Vegetables per Day Not on file 09/17/2023 Dental Answer Date Recorded Dental: Regular Dentist Unknown 09/17/20 Housing Stability Answer Date Recorded What is your living situation today? I have a [facility] place to live 10/19/2023 Sex and Gender Information Value Date Recorded Sex Assigned at Not on file Gender Identity Not on file Sexual Orientation Not on file Last Filed Vital Signs Vital Sign Reading Time Taken Comments Blood Pressure 110/68 11/28/2023 8:43 AM LABOR RELATIONS OFFICER Pulse 76 11/28/2023 8:43 AM LABOR RELATIONS OFFICER Temperature 36.7 ??C (98 ??F) 11/28/2023 8:43 AM LABOR RELATIONS OFFICER Respiratory Rate 18 11/28/2023 8:43 AM LABOR RELATIONS OFFICER Oxygen Saturation 95% 11/28/2023 8:43 AM LABOR RELATIONS OFFICER RA Inhaled Oxygen Concentration - - Weight 58.8 kg (129 lb 9.6 oz) 11/28/2023 8:43 A M LABOR RELATIONS OFFICER Height 152 cm (4' 11.84) 10/19/2023 5:00 AM LABOR RELATIONS OFFICER Body Mass Index 25.44 10/19/2023 5:00 AM LABOR RELATIONS OFFICER Plan of Treatment Health Maintenance Due Date Last Done Comments Hepatitis C Screening 1945 COVID-19 Vaccine (#1) [birth year]31/1950 Pneumococcal vaccine (65+ ye ars) (1 of 2 - PCV) 1952 Zoster Vaccines (1 of 2) 1965 Influenza Vaccine (#1) 2023 9, 07/18/2009, 07/18/2009 Depression Screening (Annual PHQ-2) 10/13/2023 Creatinine Level (Kidney Fun ction Test) 11/04/2024 11/04/2023, 10/27/2023, 10/21/2023, Additional history exists Potassium Level 11/04/2024 11/04/2023, 10/13, 10/21/2023, Additional history exists Sodium Level 11/04/2024 11/04/2023, 10/13, 10/21/2023, Additional history exists Office Visit for Blood Press ure Check / Re-check 11/28/2024 11/28/2023 DTaP,Tdap,and Td Vaccines (5 - Td or Tdap) 04/22/2028 04/22/2018, 04/22/2015, 04/22/2015, Additional history exists Fall Risk Screen (Annual) Completed 10/19/2023 Procedures Procedure Name Priority Date/Time Associated Diagnosis Comments EXTM HOME SARS CORONAVIRUS-2 (COVID-19) ANTIGEN, V Routine 11/13/2023 BASIC METABOLIC PANEL, S/P Routine 11/04/2023 6:52 AM LABOR RELATIONS OFFICER Hypokalemia DX CHEST PORTABLE 1 VIEW RAD - Routine (most inpatients and all outpatients) 10/27/2023 10:24 AM LABOR RELATIONS OFFICER URINALYSIS WITH MICROSCOPIC Routine 10/27/2023 10:15 AM LABOR RELATIONS OFFICER MORPHOLOGY EVALUATION Routine 10/27/2023 6:48 AM LABOR RELATIONS OFFICER BASIC METABOLIC PANEL, S/P Routine 10/27/2023 6:48 AM LABOR RELATIONS OFFICER CBC WITH DIFFERENTIAL, B Routine 10/27/2023 6:48 AM LABOR RELATIONS OFFICER DX CHEST PORTABLE 1 VIEW RAD - Semiurgent (Fast; most ED patients; some inpatients) 10/22/2023 10:53 AM LABOR RELATIONS OFFICER MORPHOLOGY EVALUATION Routine 10/22/2023 6:19 AM LABOR RELATIONS OFFICER C-REACTIVE PROTEIN (CRP), S/P Routine 10/22/2023 6:19 AM LABOR RELATIONS OFFICER CBC WITH DIFFERENTIAL, B Routine 10/22/2023 6:19 AM LABOR RELATIONS OFFICER MORPHOLOGY EVALUATION Routine 10/21/2023 6:32 AM LABOR RELATIONS OFFICER CBC WITH DIFFERENTIAL, B Routine 10/21/2023 6:32 AM LABOR RELATIONS OFFICER BASIC METABOLIC PANEL, S/P Routine 10/21/2023 6:32 AM LABOR RELATIONS OFFICER FAMILY MEDICINE IMAGE EXAM Routine 10/20/2023 10:00 AM LABOR RELATIONS OFFICER MORPHOLOGY EVALUATION Routine 10/20/2023 6:08 AM LABOR RELATIONS OFFICER CBC WITH DIFFERENTIAL, B Routine 10/20/2023 6:08 AM LABOR RELATIONS OFFICER BASIC METABOLIC PANEL, S/P Routine 10/20/2023 6:08 AM LABOR RELATIONS OFFICER C-REACTIVE PROTEIN (CRP), S/P Routine 10/20/2023 6:08 AM LABOR RELATIONS OFFICER EMERGENCY DEPARTMENT IMAGE EXAM Routine 10/19/2023 10:26 AM LABOR RELATIONS OFFICER EMERGENCY DEPARTMENT IMAGE EXAM Routine 10/19/2023 10:25 AM LABOR RELATIONS OFFICER EMERGENCY DEPARTMENT IMAGE EXAM Routine 10/19/2023 10:09 AM LABOR RELATIONS OFFICER EMERGENCY DEPARTMENT IMAGE EXAM Routine 10/19/2023 10:09 AM LABOR RELATIONS OFFICER EMERGENCY DEPARTMENT IMAGE EXAM Routine 10/19/2023 9:50 AM LABOR RELATIONS OFFICER MORPHOLOGY EVALUATION Routine 10/19/2023 4:27 AM LABOR RELATIONS OFFICER CBC WITH DIFFERENTIAL, B Routine 10/19/2023 4:27 AM LABOR RELATIONS OFFICER HEPATIC FUNCTION PANEL, S Routine 10/19/2023 4:27 AM LABOR RELATIONS OFFICER BASIC METABOLIC PANEL, S/P Routine 10/19/2023 4:27 AM LABOR RELATIONS OFFICER C-REACTIVE PROTEIN (CRP), S/P Routine 10/19/2023 4:27 AM LABOR RELATIONS OFFICER D-DIMER, P Routine 10/19/2023 4:27 AM LABOR RELATIONS OFFICER NASAL SCREEN FOR MRSA BY RAPID PCR Routine 10/19/2023 3:35 AM LABOR RELATIONS OFFICER NT-PRO B-TYPE NATRIURETIC PEPTIDE (BNP), S STAT 10/18/2023 11:48 PM LABOR RELATIONS OFFICER ECG Routine 10/18/2023 11:32 PM LABOR RELATIONS OFFICER URINALYSIS WITH MICROSCOPIC Routine 10/18/2023 9:14 PM LABOR RELATIONS OFFICER BACTERIAL CULTURE, AEROBIC + SUSC, URINE Routine 10/18/2023 9:14 PM LABOR RELATIONS OFFICER DX CHEST PORTABLE 1 VIEW RAD - Semiurgent (Fast; most ED patients; some inpatients) 10/18/2023 9:01 PM LABOR RELATIONS OFFICER BASIC METABOLIC PANEL, S/P STAT 10/18/2023 8:46 PM LABOR RELATIONS OFFICER LACTATE FOR SEPSIS WITH REFLEX STAT 10/18/2023 8:46 PM LABOR RELATIONS OFFICER CBC WITH DIFFERENTIAL, B STAT 10/18/2023 8:46 PM LABOR RELATIONS OFFICER BACTERIA / LUCY CULTURE, BLOOD STAT 10/18/2023 8:46 PM LABOR RELATIONS OFFICER BACTERIA / LUCY CULTURE, BLOOD STAT 10/18/2023 8:46 PM LABOR RELATIONS OFFICER INFLUENZA A, B, RSV, PCR, POCT STAT 10/18/2023 8:35 PM LABOR RELATIONS OFFICER SARS CORONAVIRUS 2, PCR RAPID, V STAT 10/18/2023 8:28 PM LABOR RELATIONS OFFICER from Last 3 Months Results * (ABNORMAL) EXT Home SARS Coronavirus-2 (COVID-19) Antigen (11/13/2023) Pathologist [facility] EXT Home SARS-CoV-2 Antigen Presumptive Positive(A) Presumptive Negative OTHER (SPECIFY IN COLLEGE INSTRUCTOR) Swab 11/13/2023 Historical Provider LAB MICROBIOLOGY - G ENERAL ORDERABLES OTHER (SPECIFY IN COLLEGE INSTRUCTOR) N/A * (ABNORMAL) Basic Metabolic Panel (11/04/2023 6:52 AM LABOR RELATIONS OFFICER) Only the most recent of6 resultswithin the time period is included. Potassium, P 4.1 3.6 - 5.2 mmol/L 11/04/2023 8:14 AM LABOR RELATIONS OFFICER NPRG Sodium, P 142 135 - 145 mmol/L 11/04/2023 8:14 AM LABOR RELATIONS OFFICER NPRG Chloride, P 102 98 - 107 mmol/L 11/04/2023 8:14 AM LABOR RELATIONS OFFICER NPRG Bicarbonate, P 30(H) 22 - 29 mmol/L 11/04/2023 8:14 AM LABOR RELATIONS OFFICER NPRG Anion Gap, P 10 7 - 15 11/04/2023 8:14 AM LABOR RELATIONS OFFICER NPRG BUN (Blood Urea Nitrogen), P 21 6 - 21 mg/dL 11/04/2023 8:14 AM LABOR RELATIONS OFFICER NPRG Creatinine 0.28(L) 0.59 - 1.04 mg/dL 11/04/2023 8:14 AM LABOR RELATIONS OFFICER NPRG Estimated GFR (eGFR) >90 >=60 mL/min/BSA 11/04/2023 8:14 AM LABOR RELATIONS OFFICER NPRG Comment: Estimated GFR calculated using the 2020 CKD_EPI creatinine equation. Calcium, Total, P 9.1 8.8 - 10.2 mg/dL 11/04/2023 8:14 AM LABOR RELATIONS OFFICER NPRG Glucose, P 79 70 - 140 mg/dL 11/04/2023 8:14 AM LABOR RELATIONS OFFICER NPRG Blood (Blood, Venous) 11/04/2023 6:52 AM LABOR RELATIONS OFFICER 11/04/2023 7:43 AM LABOR RELATIONS OFFICER Osiris Otero APRN, C.N.P., R.N. LAB B LOOD ADD-ON [facility] [address] [place] [address], [facility] NPRG [facility] [address] [place] [address] * DX Chest Portable 1 View (10/27/2023 10:24 AM LABOR RELATIONS OFFICER) Only the most recent of3 resultswithin the time period is included. Anatomical Region Laterality Modality Chest, Thoracic RST LOS, Tho racic ARZ LOS, Thoracic FLA LOS N/A Digital Radiography Impressions 10/27/2023 10:34 AM LABOR RELATIONS OFFICER No acute infiltrates. There is of bibasilar discoid atelectasis as described. Narrative 10/27/2023 10:34 AM LABOR RELATIONS OFFICER EXAM: DX CHEST PORTABLE 1 VIEW COMPARISON: 10/22/2023. FINDINGS: Heart size and pulmonary vascularity within normal limits. No acute-appearing infiltrates or effusions identified. There appear to be areas of vertical discoid atelectasis in the lower lobes bilaterally and discoid atelectasis at the right costophrenic sulcus. Again noted is rodding of the thoracolumbar spine. Procedure Note Quentin Varela Jr., M.D. - 10/27/2023 EXAM: DX CHEST PORTABLE 1 VIEW COMPARISON: 10/22/2023. FINDINGS: Heart size and pulmonary vascularity within normal limits. Noacute-appearing infiltrates or effusions identified. There appear to beareas of vertical discoid atelectasis in the lower lobes bilaterally anddiscoid atelectasis at the right costophrenic sulcus. Again noted is rodding of the thoracolumbar spine. IMPRESSION: No acute infiltrates. There is of bibasilar discoid atelectasis asdescribed. Camden Munoz M.D. IMG DIAGNOSTIC IMAGI NG PROCEDURES * (ABNORMAL) Urinalysis with Microscopic: Urine, Indwelling Catheter (10/27/2023 10:15 AM LABOR RELATIONS OFFICER) Only the most recent of2 resultswithin the time period is included. Source Urine, Urine, Indwelling Catheter 10/27/2023 10:20 AM LABOR RELATIONS OFFICER [facility] Clarity Slightly Cloudy(A) Clear 10/27/2023 10:22 AM LABOR RELATIONS OFFICER [facility] Color Yellow 10/27/2023 10:22 AM LABOR RELATIONS OFFICER [facility] Comment: ----REFERENCE VALUE---- Colorless Yellow Alana Blood Moderate(A) Negative 10/27/2023 10:22 AM LABOR RELATIONS OFFICER [facility] Nitrite Negative Negative 10/27/2023 10:22 AM LABOR RELATIONS OFFICER [facility] Leukocyte Esterase Moderate(A) Negative 10/27/2023 10:22 AM LABOR RELATIONS OFFICER [facility] Protein Negative mg/dL 10/27/2023 10:22 AM LABOR RELATIONS OFFICER [facility] Comment: ----REFERENCE VALUE---- Negative Trace Glucose Negative Negative mg/dL 10/27/2023 10:22 AM LABOR RELATIONS OFFICER [facility] Ketones, QI(U) Negative Negative mg/dL 10/27/2023 10:22 AM LABOR RELATIONS OFFICER [facility] Bilirubin Negative Negative 10/27/2023 10:22 AM LABOR RELATIONS OFFICER [facility] pH 5.5 5.0 - 8.0 10/27/2023 10:22 AM LABOR RELATIONS OFFICER [facility] Specific [place] 1.015 1.001 - 1.035 10/27/2023 10:22 AM LABOR RELATIONS OFFICER [facility] Urobilinogen 0.2 0.2 - 1.0 mg/dL 10/27/2023 10:22 AM LABOR RELATIONS OFFICER [facility] White Blood Cells 31-40(A) /hpf 10/27/2023 10:33 AM LABOR RELATIONS OFFICER [facility] Comment: ----REFERENCE VALUE---- Males: 0-3 Females: 0-10 Unknown: 0-10 Red Blood Cells 11-20(A) 0 - 2 /hpf 10:33 AM LABOR RELATIONS OFFICER [facility] Dysmorphic Red Blood Cells <=25 <=25 % 10/27/2023 10:33 AM LABOR RELATIONS OFFICER [facility] Hyaline Casts 1-3 /lpf 10/27/2023 10:33 AM LABOR RELATIONS OFFICER [facility] Crystals Calcium Oxalate(A) None Seen /lpf 10/27/2023 10:33 AM LABOR RELATIONS OFFICER [facility] Mucus Present /hpf 10/27/2023 10:33 AM LABOR RELATIONS OFFICER [facility] Squamous Cells Occ-3 /hpf 10/27/2023 10:33 AM LABOR RELATIONS OFFICER [facility] Bacteria Present(A) None Seen 10/27/2023 10:33 AM LABOR RELATIONS OFFICER [facility] Yeast Present(A) None Seen 10/27/2023 10:33 AM LABOR RELATIONS OFFICER [facility] Urine (Urine, Indwelling Catheter) 10/27/2023 10:15 AM LABOR RELATIONS OFFICER 10/27/2023 10:20 AM LABOR RELATIONS OFFICER Camden Munoz M.D. LAB URINE ORDERABLES [facility] [address] [place] [id number], [facility] [place] [facility] [place] [address] * (ABNORMAL) Morphology Evaluation (10/27/2023 6:48 AM LABOR RELATIONS OFFICER) Only the most recent of5 resultswithin the time period is included. RBC Morphology See Specific Findings 10/27/2023 7:34 AM LABOR RELATIONS OFFICER [facility] PLT Morphology Normal 10/27/2023 7:34 AM LABOR RELATIONS OFFICER [facility] PLT Estimate Adequate Adequate 10/27/2023 7:34 AM LABOR RELATIONS OFFICER [facility] Anisocytosis Slight(A) 10/27/2023 7:34 AM LABOR RELATIONS OFFICER [facility] Reactive/Atypica l Lymphocytes Present(A) Not Seen 10/27/2023 7:34 AM LABOR RELATIONS OFFICER [facility] Hypochromia Slight(A) Not Seen 10/27/2023 7:34 AM LABOR RELATIONS OFFICER [facility] Blood 10/27/2023 6:48 AM LABOR RELATIONS OFFICER 10/27/2023 7:04 AM LABOR RELATIONS OFFICER Nicole Kaiser M.D. LAB BLOOD ADD-ON [facility] [address] [place] [address], [facility] in [address] [address] * (ABNORMAL) CBC with Differential, Blood (10/27/2023 6:48 AM LABOR RELATIONS OFFICER) Only the most recent of6 resultswithin the time period is included. Hemoglobin 14.4 11.6 - 15.0 g/dL 10/27/2023 7:34 AM LABOR RELATIONS OFFICER [facility] Hematocrit 46.5(H) 35.5 - 44.9 % 10/27/2023 7:34 AM LABOR RELATIONS OFFICER [facility] Erythrocytes 5.46(H) 3.92 - 5.13 x10(12)/L 10/27/2023 7:34 AM LABOR RELATIONS OFFICER [facility] MCV 85.2 78.2 - 97.9 fL 10/27/2023 7:34 AM LABOR RELATIONS OFFICER [facility] RBC Distrib Width 19.9(H) 12.2 - 16.1 % 10/27/2023 7:34 AM LABOR RELATIONS OFFICER [facility] Platelet Count 293 157 - 371 x10(9)/L 10/27/2023 7:34 AM LABOR RELATIONS OFFICER [facility] Leukocytes 21.8(H) 3.4 - 9.6 x10(9)/L 10/27/2023 7:34 AM LABOR RELATIONS OFFICER [facility] Neutrophils 14.70(H) 1.56 - 6.45 x10(9)/L 10/27/2023 7:34 AM LABOR RELATIONS OFFICER [facility] Lymphocytes 5.51(H) 0.95 - 3.07 x10(9)/L 10/27/2023 7:34 AM LABOR RELATIONS OFFICER [facility] Monocytes 1.35(H) 0.26 - 0.81 x10(9)/L 10/27/2023 7:34 AM LABOR RELATIONS OFFICER [facility] Eosinophils 0.09 0.03 - 0.48 x10(9)/L 10/27/2023 7:34 AM LABOR RELATIONS OFFICER [facility] Basophils 0.10(H) 0.01 - 0.08 x10(9)/L 10/27/2023 7:34 AM LABOR RELATIONS OFFICER [facility] Blood (Blood, Venous) 10/27/2023 6:48 AM LABOR RELATIONS OFFICER 10/27/2023 7:04 AM LABOR RELATIONS OFFICER Nicole Kaiser M.D. LAB BLOOD ADD-ON Performing Organization Address [facility] Co de Phone Number [facility]- [address] [address], [facility] in [address] [address] * (ABNORMAL) CRP (C-Reactive Protein) (10/22/2023 6:19 AM LABOR RELATIONS OFFICER) Only the most recent of3 resultswithin the time period is included. C-Reactive Protein (CRP), P 12.0(H) <5.0 mg/L 10/22/2023 7:01 AM LABOR RELATIONS OFFICER [facility] Blood (Blood, Venous) 10/22/2023 6:19 AM LABOR RELATIONS OFFICER 10/22/2023 6:39 AM LABOR RELATIONS OFFICER Williams Barber M.D. LAB BLOOD ADD -ON Performing Organization Address [facility] Co de Phone Number [facility] [address] [place] [phone], [facility] [address] [address] * Buttocks/Sacrum (bilateral)-Family Medicine Image Exam (10/20/2023 10:00 AM LABOR RELATIONS OFFICER) 10/20/2023 9:58 AM LABOR RELATIONS OFFICER Narrative [facility] - 10/20/2023 10:00 AM LABOR RELATIONS OFFICER This order has been created and auto-finalized to support the import of images acquired without order. The clinical documentation to support these images can be found on the encounter that produced images. Provider Not In System IMG NON RAD IMAGI NG PROCEDURES Performing Organization Address City/[facility] Co de Phone Number [facility] NA * Anus-Emergency Department Image Exam (10/19/2023 10:26 AM LABOR RELATIONS OFFICER) Only the most recent of5 resultswithin the time period is included. 10/19/2023 10:2 3 AM LABOR RELATIONS OFFICER Narrative [facility]IM[facility] - 10/19/2023 10:26 AM LABOR RELATIONS OFFICER This order has been created and auto-finalized to support the import of images acquired without order. The clinical documentation to support these images can be found on the encounter that produced images. Provider Not In System IMG NON RAD IMAGI NG PROCEDURES Performing Organization Address [facility] Co de Phone Number [facility] NA * (ABNORMAL) Hepatic Function Panel (10/19/2023 4:27 AM LABOR RELATIONS OFFICER) Bilirubin, Total, P 0.4 0.0 - 1.2 mg/dL 10/19/2023 4:49 AM LABOR RELATIONS OFFICER [facility] Bilirubin, Direct, P <0.2 0.0 - 0.3 mg/dL 10/19/2023 4:49 AM LABOR RELATIONS OFFICER [facility] Aspartate Aminotransferase (AST), P 38 8 - 43 U/L 10/19/2023 4:49 AM LABOR RELATIONS OFFICER [facility] Alanine Aminotransferase (ALT), P 17 7 - 45 U/L 10/19/2023 4:49 AM LABOR RELATIONS OFFICER [facility] Alkaline Phosphatase, P 148(H) 35 - 104 U/L 10/19/2023 4:49 AM LABOR RELATIONS OFFICER [facility] Albumin, P 3.1(L) 3.5 - 5.0 g/dL 10/19/2023 4:49 AM LABOR RELATIONS OFFICER [facility] Protein, Total, P 5.0(L) 6.3 - 7.9 g/dL 10/19/2023 4:49 AM LABOR RELATIONS OFFICER [facility] Blood (Blood, Venous) 10/19/2023 4:27 AM LABOR RELATIONS OFFICER 10/19/2023 4:29 AM LABOR RELATIONS OFFICER Pancho Burr M.D. LAB BLOOD ADD-ON Performing Organization Address [facility] Co de Phone Number [facility] [address] [place] [address], [facility] [address] [address] * (ABNORMAL) D-Dimer (10/19/2023 4:27 AM LABOR RELATIONS OFFICER) Pathologist [facility] D-Dimer, P 3988(H) <=500 ng/mL FEU 10/19/2023 4:46 AM LABOR RELATIONS OFFICER [facility] Comment: D-dimer concentrations increase with age. ??For DVT/PE exclusion, in addition to clinical pre-test probability, age-adjusted D-dimer cut-offs are suggested for patients >50 years old. For additional information refer to the D-dimer assay in the Laboratory Test Catalog (LTC) and/or [employer]May[employer]Expert (JAMIL). ----ADDITIONAL INFORMATION---- D-dimer values less than or equal to 500 ng/mL fibrinogen equivalent units (FEU) may be used in conjunction with clinical pre-test probability to exclude deep vein thrombosis (DVT) and/or pulmonary embolism (PE). Blood (Blood, Venous) 10/19/2023 4:27 AM LABOR RELATIONS OFFICER 10/19/2023 4:29 AM LABOR RELATIONS OFFICER Pancho Burr M.D. LAB BLOOD ADD-ON Performing Organization Address [facility]/ZIP Co de Phone Number [facility] [address] [place] [phone], [facility] [address] [address] * (ABNORMAL) MRSA PCR, Nasal (10/19/2023 3:35 AM LABOR RELATIONS OFFICER) Pathologist [facility] MRSA Screen, Nasal by PCR Positive(A ) Negative 10/19/2023 5:28 PM LABOR RELATIONS OFFICER MKTO Semi-Urgent This is a semi-urgen t result(FLEMING) [facility] Swab (Nares) 10/19/2023 3:35 AM LABOR RELATIONS OFFICER 10/19/2023 4:22 PM LABOR RELATIONS OFFICER Pancho Burr M.D. LAB MICROBIOLOGY - GENERAL ORDERABLES Performing Organization Address City/[facility]/ZIP Co de Phone Number [facility] [address] [place] [address], [place] MKTO [facility] [place] [address] [place] [address] * (ABNORMAL) NT-Pro B-Type Natriuretic Peptide (BNP) (10/18/2023 11:48 PM LABOR RELATIONS OFFICER) NT-Pro BNP 589(H) <=540 pg/mL 10/19/2023 12:23 AM LABOR RELATIONS OFFICER [facility] Comment: NT-proBNP values less than 300 pg/mL have a 99% negative predictive value for excluding acute congestive heart failure. A cutoff of 1200 pg/mL for patients with an eGFR<60 yields a diagnostic sensitivity and specificity of 89% and 72% for acute congestive heart failure. A diagnostic NT-proBNP cutoff of 1800 pg/mL has been suggested in adults over 75 years of age in the absence of renal failure. Blood (Blood, Venous) 10/18/2023 11:48 PM LABOR RELATIONS OFFICER 10/18/2023 11:59 PM LABOR RELATIONS OFFICER Iam Herrera D.O. LAB BLOOD ADD-ON Performing Organization Address City/[facility]/ZIP Co de Phone Number [facility] [address] [place] [address], [facility] NPRG [facility] [address] [place] [address] * ECG 12 Lead (10/18/2023 11:32 PM LABOR RELATIONS OFFICER) Ventricular Rate ECG/Min [address] Interval 140 ms MUSE QRSD Interval 72 ms MUSE QT Interval 326 ms MUSE QTC Interval 422 ms MUSE P [place] 58 degrees MUSE R [place] 18 degrees MUSE T Wave [place] 57 degrees MUSE 10/18/2023 11:3 2 PM LABOR RELATIONS OFFICER 10/18/2023 11:52 PM LABOR RELATIONS OFFICER Impressions MUSE - 10/18/2023 11:52 PM LABOR RELATIONS OFFICER Sinus tachycardia Nonspecific T wave abnormality No previous ECGs available Reviewed by ANGELITO Allen Narrative Procedure Note Roshan East M.D., Ph.D. - 10/18/2023 IMPRESSION: Sinus tachycardia Nonspecific T wave abnormality No previous ECGs available Reviewed by ANGELITO Allen Iam Herrera D.O. ECG ORDERABLES MUSE NA * (ABNORMAL) Bacterial Culture, Aerobic + Susceptibility, Urine (10/18/2023 9:14 PM LABOR RELATIONS OFFICER) Urine Culture YEAST >100,000 cfu/mL (A) 10/20/2023 12:11 PM LABOR RELATIONS OFFICER TO Comment:No further identific ation Urine (Urine, Indwelling Catheter) 10/18/2023 9:14 PM LABOR RELATIONS OFFICER 10/19/2023 4:21 PM LABOR RELATIONS OFFICER Comment:Specimen Source Site : Urine Iam Herrera D.O. LAB MICROBIOLOGY - G ENERAL ORDERABLES Performing Organization Address [facility] Co de Phone Number [facility] [address] [place] [address], [place] MK[facility] [place] [address] [place] [address] * Lactate for Sepsis with Reflex (10/18/2023 8:46 PM LABOR RELATIONS OFFICER) Lactate, P 1.8 0.5 - 2.2 mmol/L 10/18/2023 9:12 PM LABOR RELATIONS OFFICER [facility] Blood (Blood, Venous) 10/18/2023 8:46 PM LABOR RELATIONS OFFICER 10/18/2023 8:49 PM LABOR RELATIONS OFFICER Iam Herrera D.O. LAB BLOOD NON ADD-ON Performing Organization Address City/[facility]/ZIP Co de Phone Number [facility] [address] [place] [address], [place] NPRG [facility] [address] * Bacteria / Lucy Culture, Blood #2 (10/18/2023 8:46 PM LABOR RELATIONS OFFICER) Only the most recent of2 resultswithin the time period is included. Pathologist [facility] Bacteria/Herlinda da Culture, Blood No growth after 5 day/s of incubation. 10/23/2023 9:03 PM LABOR RELATIONS OFFICER [facility] Blood (Blood, Peripheral Draw) 10/18/2023 8:46 PM LABOR RELATIONS OFFICER 10/18/2023 8:49 PM LABOR RELATIONS OFFICER Comment:Specimen Source Site : Blood Iam Herrera D.O. LAB MICROBIOLOGY - G ENERAL ORDERABLES [facility] [address] [place] [address], [facility] [address] [address] * Influenza A/B and RSV, PCR, Point of Care (10/18/2023 8:35 PM LABOR RELATIONS OFFICER) Pathologist [facility] Influenza A, POCT Negative Negative 10/18/2023 8:52 PM LABOR RELATIONS OFFICER [facility] Influenza B, POCT Negative Negative 10/18/2023 8:52 PM LABOR RELATIONS OFFICER [facility] Resp Syncytial Virus, POCT Negative Negative 10/18/2023 8:52 PM LABOR RELATIONS OFFICER [facility] Swab (Nasopharynx) 10/18/2023 8:35 PM LABOR RELATIONS OFFICER 10/18/2023 8:50 PM LABOR RELATIONS OFFICER Iam Herrera D.O. LAB POCT ORDERABLES - DEVICE [facility] [address] [place] [address], [address] [address] * SARS Coronavirus 2, PCR Rapid Symptomatic (10/18/2023 8:28 PM LABOR RELATIONS OFFICER) Pathologist [facility] SARS CoV-2, PCR, Rapid, V Undetected Undetected 10/18/2023 9:11 PM LABOR RELATIONS OFFICER [facility] Comment: ----ADDITIONAL INFORMATION---- This RT-PCR test was performed using the [employer] SARS-CoV-2 and Influenza A/B Reagent assay from [employer], which has received Emergency Use Authorization(EUA) by the U.S. Food and Drug Administration. Fact sheets for this Emergency Use Authorization (EUA) assay can be found at the following links: For Healthcare Providers: https://www.fda.gov/media/385918/download For Patients: https://www.fda.gov/media/509944/download SARS Coronavirus 2, Source, Rapid Swab, Nasopharynx 10/18/2023 8:49 PM LABOR RELATIONS OFFICER [facility] Swab (Nasopharynx) 10/18/2023 8:28 PM LABOR RELATIONS OFFICER 10/18/2023 8:49 PM LABOR RELATIONS OFFICER Iam Herrera D.O. LAB MICROBIOLOGY - G ENERAL ORDERABLES [facility] [address] [place] [address], [facility] NPRG [facility] [address] [place] [address] from Last 3 Months Advance Directives For more information, please contact: [phone] Documents on File Type Date Recorded Patient Deli/Bakery Associate Expl anation Advance Directives 09/19/2023 4:06 PM POLS T/MOLST * DNR/DNI (Latest Code Status on File) Date Activated Date Inactivated Comments 10/19/2023 6:50 PM 10/27/2023 4:16 PM * Full Code Date Activated Date Inactivated Comments 10/19/2023 2:13 AM 10/19/2023 6:50 PM Question Answer Comments Full Code: Discussed Care Teams Scientific Helper Relationship Specialty Start Date End Date Elsewhere, Pcp PCP - General Internal Medicine 12/09/23
--- OUTSIDE RECORDS SUMMARY | 2024-01-16 12:04 | XMS_ITS | Encounter Summary ---
Author Name Unknown Organization [facility] Address [address] [place] [address] Care Team Providers Care Instructor [employer] Name Role Phone Osiris Otero APRN, C.N.P., R.N. Primary Care Provider Encounter Details Date Type Department Care Team (Late st Contact Info) Description 11/25/2023 Clinical Communication [facility] in [place] [address] [place] [phone] Osiris Otero APRN, C.N.P., R.N. [address] [place] [phone] Social History Tobacco Use Types Packs/Day Years Used Date Smoking Tobacco: Never Smokeless Tobacco: Never Alcohol Use Standard Drinks/Week Comments Defer 0 (1 standard drink = 0.6 oz pur e alcohol) [facility] Utilities Answer Date Recorded In the past 12 months has [employer], gas, oil, or water [employer] threatened to shut off services in your [...] your living situation today? I have a [facility] place to live 10/19/2023 Sex and Gender Information Value Date Recorded Sex Assigned at Not on file Gender Identity Not on file Sexual Orientation Not on file documented as of this encounter Miscellaneous Notes * Telephone Encounter - Osiris Otero APRN, C.N.P., R.N. - 11/25/2023 2:26 PM CST Requesting refill of oxycodone. Reviewed PDMP and previous order. Dose: 7.5 mg Route: oral Frequency: 4 times daily PRN for moderate pain or score 4-6 of 10, severe pain or score 7-10 of 10 Dispense Quantity: 60 tablet Refills: 0 Note to Pharmacy: Does change, do not send until facility requests. Indications of Use: Chronic Pain/Nonacute Pain Sig: Take 1.5 tablets (7.5 mg total) by mouth 4 (four) times a day as needed for moderate pain or score 4-6 of 10 or severe pain or score 7-10 of 10 Indication: Chronic Pain/Nonacute Pain. (at least 4 hours apart) Start Date: 10/31/23 End Date: -- Written Date: 10/31/23 Expiration Date: 10/30/24 Earliest Fill Date: 10/31/23 She is using 7.5 mg 2-3 times per day. New Medications Ordered This Visit Medications oxyCODONE (ROXICODONE) 15 mg immediate release tablet Sig: Take 0.5 tablets (7.5 mg total) by mouth 4 (four) times a day as needed for moderate pain or score 4-6 of 10 or severe pain or score 7-10 of 10 Indication: Chronic Pain/Nonacute Pain. (at least 4 hours apart) Dispense: 30 tablet Refill: 0 Please send half tablets. BOSS documented in this encounter Plan of Treatment Not on file documented as of this encounter Visit Diagnoses Not on filedocumented in this encounter Care Teams Instructor [employer] Relationship Specialty Start Date End Date Osiris Otero APRN, C.N.P., R.N. [address] [place] [phone] PCP - General Family Medicine 09/17/23 12/08/23 documented as of this encounter
--- OUTSIDE RECORDS SUMMARY | 2024-01-16 12:04 | XMS_ITS ---
Author Name Unknown Organization [facility] Address [address] [place] [address] Care Team Providers Care Printer Helper Name Role Phone Unavailable Unavailable Unavailable Surgery Details Not on file Complications Check Surgery Details section. Procedure Estimated Blood Loss Check Surgery Details section. Procedure Findings Check Surgery Details section. Procedure Specimens Taken Check Surgery Details section.
--- OUTSIDE RECORDS SUMMARY | 2024-01-16 12:04 | XMS_ITS | Encounter Summary ---
Author Name Unknown Organization [facility] Address [address] [place] [address] Care Team Providers Care Quality Internship Name Role Phone Osiris Otero APRN, C.N.PRoberto, R.N. Primary Care Provider Reason for Referral * Outpatient (Routine) - Authorized Specialty Diagnoses / Procedures Referred By Paresh t Referred To Contact Pulmonary Medicine Diagnoses Orthopnea Osiris Otero APRN, C.N.P., R.N. [address] [place] [address] [facility] Referral ID Status Reason Start Date Expiration Date Visits Requested Visits Authorized [id number] Authorized Specialty Services Required 10/31/2023 05/01/2025 1 1 RETE BUSTER OPERATOR Encounter Details Date Type Department Care Team (Latest Contact Info) Description 10/31/2023 10:00 AM CONCRETE BUSTER OPERATOR External Outreach [facility] [place] [address] [place] [address] Osiris Otero APRN, C.N.P., R.N. [address] [place] [phone] Orthopnea (Primary Dx); Pressure Injury (Ulcer) Of [...] Resonance Disorder; Obstructive Sleep Apnea Adult; Paraplegia ([facility]) Social History Tobacco Use Types Packs/Day Years Used Date Smoking Tobacco: Never Smokeless Tobacco: Never Tobacco Cessation:Counseling Given: Not Answered Alcohol Use Standard Drinks/Week Comments Defer 0 (1 standard drink = 0.6 oz pur e alcohol) [facility] Utilities Answer Date Recorded In the past 12 months has e [employer], gas, oil, or water [employer] threatened to shut off services in your [...] your living situation today? I have a [facility] place to live 10/19/2023 Sex and Gender Information Value Date Recorded Sex Assigned at Not on file Gender Identity Not on file Sexual Orientation Not on file documented as of this encounter Last Filed Vital Signs Vital Sign Reading Time Taken Comments Blood Pressure 110/62 10/31/2023 9:01 AM CONCRETE BUSTER OPERATOR Pulse 98 10/31/2023 9:01 AM CONCRETE BUSTER OPERATOR Temperature 36.3 ??C (97.4 ??F) 10/31/2023 9:01 AM CS T Respiratory Rate 18 10/31/2023 9:01 AM CONCRETE BUSTER OPERATOR Oxygen Saturation 95% 10/31/2023 9:01 AM CONCRETE BUSTER OPERATOR Inhaled Oxygen Concentration - - Weight 61.2 kg (135 lb) 10/31/2023 9:01 AM CONCRETE BUSTER OPERATOR Height - - Body Mass Index 26.5 10/19/2023 5:00 AM CONCRETE BUSTER OPERATOR documented in this encounter Progress Notes * Sol Mills L.P.N. - 10/31/2023 10:00 AM CST SNF VISIT for Post Hospital Follow up Visit This resident was recently hospitalized at: [facility] Date of hospitalization: DATE OF ADMISSION: 10/19/2023 DATE OF DISCHARGE: 10/22/2023 Reason for hospitalization: Acute Respiratory Failure With Hypoxia Medication changes: Code Status: Full Code Active issues needing follow up: Throughout the patient's hospital stay she would have intermittent episodes of hypoxia down to around 82%. These happen more frequently when the patient was turned onto her left side, and typically resolved with a shift in position and a suggestion to take a few deep breaths. SpO2 would typically rebound to around 95% in 15-30 seconds. Overnight with CPAP in place and without supplemental oxygen,SpO2 was consistently 95-100%. Should that pattern be noted to continue, would suggest further evaluation with pulmonology. Active wound requiring treatment: Continued wound care to coccyx pressure injury and rectal wound. Wounds/L/D/A: None SNF Nurse concerns: unknown RETE BUSTER OPERATOR * Osiris Otero APRN, ElizabethN.P., R.N. - 10/31/2023 10:00 AM CST CHIEF COMPLAINT / REASON FOR VISIT The resident is being seen at [place], [place] for Post hospitalization Follow up Visit Type: In Person Face-to- Face visit SUBJECTIVE HISTORY OF PRESENT ILLNESS Obtained from Patient, Nursing, and SBAR: SNF VISIT for Post Hospital Follow up Visit This resident was recently hospitalized at: [facility] Date of hospitalization: DATE OF ADMISSION: 10/19/2023 DATE OF DISCHARGE: 10/22/2023 Reason for hospitalization: Acute Respiratory Failure With Hypoxia Prior to hospitalization patient did receive levofloxacin for 5 days. On 10/18/2023 she developed fever, cough, shortness of breath hypoxia. She was transferred to [place]. Her MRSA swab returned positive, Infectious Disease recommended continuing Rocephin and doxycycline. Her CRP was elevated this was felt it was due to her chronic wounds. Her antibiotics were changed to Augmentin and doxycycline. In the hospital they felt her wound care was adequate, continue current wound care plan. She was stress dose with prednisone and returned back to baseline of 10 mg daily on 10/18/2023. Patient was weaned off her oxygen. She discharged back to longterm facility. She did have intermittent episodes of hypoxia where she would go down to 82% especially if on her left side. She would rebound back to 95% in about 15-30 seconds. Patient was previously hospitalized at [facility] from 08/28/2023 through 09/17/2023, she has a history of paraplegia since age 6, has chronic indwelling Cristobal catheter. She is unable to walk and requires a Dustin lift. She developed a perirectal abscess and required incision and drainage, originally had seton placement which is now removed. Bone biopsy of the right ischial tuberosity wasnegative. She received 14 days of IV antibiotics. Patient also needs to wear a BiPAP at night due to severe obstructive sleep apnea. [facility] Patient is seen in her room, she has no longer requiring oxygen. Her vital signs have been stable. She is 94% on room air. She says she is feeling better. Her cough is much better. She is wearing herBiPAP at night. She denies any coughing when eating. 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 She denies any fever or chills. Her main issue is pain. She says the oxycodone she does take does not really take the edge off anymore. She is wondering if her dose can be increased. She is also wondering if she needs to be on all the medications she has. She does not like to take all the medications. I personally reviewed the most recent following items: clinical notes, lab results, imaging reports The following medical problems were actively reviewed (including updating overview sections as necessary) and addressed as part of today's visit: Diagnosis Overview 1. 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 Chronic Diastolic (Congestive) Heart Failure (HCC) 3. Unspecified Open Wound Right Buttock Initial 4. Pain Low Back Chronic 5. Other Adrenocortical Insufficiency (HCC) 6. Other Acidosis 7. Osteoporosis 8. Neurogenic Bladder 9. Edema Localized 10. Diarrhea 11. Arthritis Rheumatoid (HCC) 12. Anemia 13. Hypertension Essential Primary 14. Paraplegia (HCC) 15. Voice And Resonance Disorder 16. 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 Obstructive Sleep Apnea Adult 18. RESOLVED: Acute Respiratory Failure With Hypoxia ([facility]) CODE STATUS: FULL CODE REVIEW OF SYSTEMS Complete review of systems was performed, as allowable by patient's cognitive status, and incorporating collateral history if applicable. Relevant positives are noted elsewhere in this note, otherwise negative. OBJECTIVE Vital signs provided by facility: BP 110/62 Pulse 98 Temp 36.3 ??C Resp 18 Wt 61.2 kg SpO2 95% BMI 26.50 kg/m?? PHYSICAL EXAM Vitals reviewed. Constitutional General: She is not in acute distress. Appearance: Normal appearance. HENT Head: Normocephalic. Nose: Nose normal. No congestion or rhinorrhea. Eyes Conjunctiva/sclera: Conjunctivae normal. Cardiovascular Rate and Rhythm: Normal rate and regular rhythm. Heart sounds: Normal heart sounds. Pulmonary Effort: Pulmonary effort is normal. No respiratory distress. Breath sounds: Normal breath sounds. Abdominal General: Bowel sounds are normal. Palpations: Abdomen is soft. Musculoskeletal Right lower leg: No edema. Left lower leg: No edema. Comments: Bilateral legs have atrophy Skin Comments: Did not observe wounds today. Neurological Mental Status: She is alert. Mental status is at baseline. Comments: Paraplegia lower extremities Psychiatric Mood and Affect: Mood normal. Behavior: Behavior normal. Thought Content: Thought content normal. Judgment: Judgment normal. ASSESSMENT / PLAN Full background details regarding problems addressed at today's visit can be found in the HPI. Pertinent changes to the care plan based on today's evaluation are explicitly discussed below, otherwiselisted problems are stable and present management will be continued. #1 Open Wound on Right Buttock She will have ongoing wound care management at the facility with the wound care nurse practitioner. Multivitamin, zinc. Patient feels her pain is not managed will. Will increase oxycodone to 7.5 mg four times per day as needed for pain. 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 Takes gabapentin three times per day #6 Anemia CBC next week #7 Arthritis Rheumatoid ([facility]) Prednisone 10 mg daily (was stress dosed and is back to 10 mg daily) #8 Atrial Fibrillation Unspecified ([facility]) History of, not on anticoagulation, does take metoprolol #9 Diarrhea Scheduled loperamide and has daily probiotic #10 Edema Localized Furosemide 40 mg daily and potassium 20 mEq three times a day ([facility] on 11/04) #11 Hypertension Essential Primary Metoprolol (discharged on tartrate and succinate). 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 Explained diagnosis and treatment plan; patient/child/caregiver expressed understanding of the content. Billing based on: Time, including the following tasks: reviewing the electronic medical record, updating the EPIC Problem List, reviewing written facility- provided information, reviewing information in facility EMR, medication reconciliation, obtaining collateral history from facility staff, Interviewing and examining the patient, communicating with specialty service(s), placing orders, communicating orders to facility, providing education/counseling to patient, family, and/or facility staff. Total time 40 minutes. RETE BUSTER OPERATOR documented in this encounter Miscellaneous Notes * Addendum Note - Hermes Edouard R.N. - 10/31/2023 10:00 AM CSTAddended by: HERMES EDOUARD on: 11/05/2023 12:30 PM Modules accepted: Orders RETE BUSTER OPERATOR documented in this encounter Plan of Treatment Scheduled Orders Name Type Priority Associated Diagnoses Orde r Schedule Pulmonary Function Tests PFT Routine Orthopnea 1 Occurrences starting 10/31/2023 until 01/29/2025 Hemoglobin Lab Routine Orthopnea Expected: 11/05/2023 (Approximate), Expires: 02/03/2025 Scheduled Referrals Name Type Priority Associated Diagnoses Orde r Schedule Pulmonary Medicine - General consult (clinic) Outpatient Referral Routine Orthopnea Expected: 10/31/2023 (Approximate), Expires: 01/29/2025 documented as of this encounter Visit Diagnoses Diagnosis Orthopnea- Primary 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) Acute Respiratory Failure With Hypoxia (HCC) Unspecified Open Wound Right Buttock Initial Chronic Diastolic (Congestive) Heart Failure (HCC) 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 [address] [place] [phone] PCP - General Family Medicine 09/17/23 12/08/23 documented as of this encounter
--- OUTSIDE RECORDS SUMMARY | 2024-01-16 12:04 | XMS_ITS | Encounter Summary ---
Author Name Unknown Organization [facility] Address [address] [place] [address] Care Team Providers Care Multimedia Assistant Name Role Phone Osiris Otero APRN, C.N.P., R.N. Primary Care Provider Encounter Details Date Type Department Care Team (Late st Contact Info) Description 11/26/2023 Documentation [facility] [place] [address] [place] [phone] Osiris Otero APRN, C.N.P., R.N. [address] [place] [phone] Social History Tobacco Use Types Packs/Day Years Used Date Smoking Tobacco: Never Smokeless Tobacco: Never Alcohol Use Standard Drinks/Week Comments Defer 0 (1 standard drink = 0.6 oz pur e alcohol) [facility] Utilities Answer Date Recorded In the past 12 months has [employer], gas, oil, or water [employer] threatened to shut off services in your [...] your living situation today? I have a [facility] place to live 10/19/2023 Sex and Gender Information Value Date Recorded Sex Assigned at Not on file Gender Identity Not on file Sexual Orientation Not on file documented as of this encounter Progress Notes * Sol Mills L.P.N. - 11/26/2023 12:25 PM CST Encounter created to enter external lab results. [employer] documented in this encounter Plan of Treatment Not on file documented as of this encounter Procedures Procedure Name Priority Date/Time Associated Diagnosis Comments EXTM HOME SARS CORONAVIRUS-2 (COVID-19) ANTIGEN, V Routine 11/13/2023 documented in this encounter Results * (ABNORMAL) EXT Home SARS Coronavirus-2 (COVID-19) Antigen (11/13/2023) EXT Home SARS-CoV-2 Antigen Presumptive Positive(A) Presumptive Negative OTHER (SPECIFY IN LOSS PREVENTION AUDITOR) Swab 11/13/2023 Historical Provider LAB MICROBIOLOGY - G ENERAL ORDERABLES OTHER (SPECIFY IN LOSS PREVENTION AUDITOR) N/A documented in this encounter Visit Diagnoses Not on filedocumented in this encounter Additional Health Concerns Infection Onset Date Last Indicated Resolved Time COVID19 11/13/2023 11/13/2023 12/03/2023 5:55 AM MANAGER BUSINESS BANKING documented as of this encounter Care Teams Multimedia Assistant Relationship Specialty Start Date End Date Osiris Otero APRN, C.N.P., R.N. [address] [place] [phone] PCP - General Family Medicine 09/17/23 12/08/23 documented as of this encounter
--- OUTSIDE RECORDS SUMMARY | 2024-01-16 12:04 | XMS_ITS | Encounter Summary ---
Author Name Unknown Organization [facility] Address [address] [place] [address] Care Team Providers Care Engraver Tender Name Role Phone Osiris Otero APRN C.N.P., R.N. Primary Care Provider Encounter Details Date Type Department Care Team (Latest Contact Info) Description 11/04/2023 12:13 AM SHOP LABORER - 11/04/2023 11:[address] [facility] Hospital Encounter Department of Laboratory Medicine in [place], [place] [address] [place] [address] Osiris Otero APRN, C.N.P., R.N. [address] [place] [phone] Hypokalemia Discharge Disposition: Home or Self Care Social History Tobacco Use Types Packs/Day Years Used Date Smoking Tobacco: Never Smokeless Tobacco: Never Alcohol Use Standard Drinks/Week Comments Defer 0 (1 standard drink = 0.6 oz pur e alcohol) [facility] Utilities Answer Date Recorded In the past 12 months has [employer], gas, oil, or water company threatened [...] Date Recorded Dental: Regular Dentist Unknown 09/17/20 23 Housing Stability Answer Date Recorded What is your living situation today? I have a [facility] place to live 10/19/2023 Sex and Gender Information Value Date Recorded Sex Assigned at Not on file Gender Identity Not on file Sexual Orientation Not on file documented as of this encounter Medications at Time of Discharge Medication Sig Dispensed Refills Start Date End Date acetaminophen (TYLENOL) 500 mg tablet Take 2 tablets (1,000 mg total) by mouth 3 (three) times a day. 0 09/19/2023 ascorbic acid, vitamin C, (VITAMIN C) 1,000 mg tablet Take 1 tablet (1,000 mg total) by mouth daily. 30 tablet 0 10/27/2023 bisacodyL (DULCOLAX) 10 mg suppository Insert 10 mg into the rectum 2 (two) times a day as needed for constipation. 0 carboxymethylcellulos e (REFRESH PLUS) 0.5 % ophthalmic solution Administer 1 drop into both eyes 3 (three) times a day as needed for dry eyes. 70 each 0 10/27/2023 furosemide (LASIX) 40 mg tablet Take 1 tablet (40 mg total) by mouth daily. 30 tablet 0 10/27/2023 gabapentin (NEURONTIN) 300 mg capsule Take 300 mg by mouth 3 (three) times a day. 0 09/17/2023 ipratropium (ATROVENT) 0.02 % nebulizer solution Inhale 2.5 mL (500 mcg total) by nebulization 3 (three) times a day. 75 mL 0 10/27/2023 Lactobacillus acidophilus 100 million cell capsule Take 1 capsule by mouth daily. In evening 0 09/17/2023 metoprolol succinate (TOPROL-XL) 50 mg 24 hr tablet Take 1 tablet (50 mg total) by mouth daily. Do not crush or chew. 30 tablet 0 10/27/2023 miconazole (MICATIN) 2 % powder Apply 1 Application topically 2 (two) times a day. Apply to abdominal and groin folds. 43 g 0 10/27/2023 multivitamin tablet Take 1 tablet by mouth daily. 0 09/17/2023 omeprazole (PriLOSEC) [address] capsule Take 20 mg by mouth 2 (two) times a day before breakfast and dinner. 0 09/18/2023 predniSONE (DELTASONE) 10 mg tablet Take 1 tablet (10 mg total) by mouth daily. Resume usual dose of prednisone 10 mg daily on 10/27/23 30 tablet 0 10/27/2023 triamcinolone (KENALOG) 0.1 % ointment Apply 1 Application topically 2 (two) times a day as needed for rash. 0 09/17/2023 zinc sulfate (ZINCATE) 220 (50 mg zinc) capsule Take 100 mg by mouth daily. 0 09/18/2023 benzonatate (TESSALON PERLES) 100 mg capsule Take 1 capsule (100 mg total) by mouth 3 (three) times a day as needed for cough. 0 10/14/2023 11/28/2023 loperamide (IMODIUM A-D) 2 mg capsule Take 2 mg by mouth 3 (three) times a day before meals. 0 09/17/2023 11/07/2023 nystatin (NYSTOP) 100,000 unit/gram powder Apply 1 Application topically 2 (two) times a day. Apply to abd folds and groin area 0 09/18/2023 11/07/2023 oxyCODONE (ROXICODONE) 5 mg immediate release tabletIndications:Chr onic Pain/Nonacute Pain Take 1.5 tablets (7.5 mg total) by mouth 4 (four) times a day as needed for moderate pain or score 4-6 of 10 or severe pain or score 7-10 of 10 Indication: Chronic Pain/Nonacute Pain. (at least 4 hours apart) 60 tablet 0 10/31/2023 11/25/2023 potassium chloride (KLOR-CON M/KDUR) 20 mEq ER tablet Take 1 tablet (20 mEq total) by mouth 3 (three) times a day with meals. 0 10/14/2023 11/28/2023 documented as of this encounter Plan of Treatment Not on file documented as of this encounter Procedures Procedure Name Priority Date/Time Associated Diagnosis Comments BASIC METABOLIC PANEL, S/P Routine 11/04/2023 6:52 AM SHOP LABORER Hypokalemia documented in this encounter Results * (ABNORMAL) Basic Metabolic Panel (11/04/2023 6:52 AM SHOP LABORER) Potassium, P 4.1 3.6 - 5.2 mmol/L 11/04/2023 8:14 AM SHOP LABORER NPRG Sodium, P 142 135 - 145 mmol/L 11/04/2023 8:14 AM SHOP LABORER NPRG Chloride, P 102 98 - 107 mmol/L 11/04/2023 8:14 AM SHOP LABORER NPRG Bicarbonate, P 30(H) 22 - 29 mmol/L 11/04/2023 8:14 AM SHOP LABORER NPRG Anion Gap, P 10 7 - 15 11/04/2023 8:14 AM SHOP LABORER NPRG BUN (Blood Urea Nitrogen), P 21 6 - 21 mg/dL 11/04/2023 8:14 AM SHOP LABORER NPRG Creatinine 0.28(L) 0.59 - 1.04 mg/dL 11/04/2023 8:14 AM SHOP LABORER NPRG Estimated GFR (eGFR) >90 >=60 mL/min/BSA 11/04/2023 8:14 AM SHOP LABORER NPRG Comment: Estimated GFR calculated using the 2020 CKD_EPI creatinine equation. Calcium, Total, P 9.1 8.8 - 10.2 mg/dL 11/04/2023 8:14 AM SHOP LABORER NPRG Glucose, P 79 70 - 140 mg/dL 11/04/2023 8:14 AM SHOP LABORER NPRG Blood (Blood, Venous) 11/04/2023 6:52 AM SHOP LABORER 11/04/2023 7:43 AM SHOP LABORER Elizabeth Wright APRNNBuck, R.NRoberto LAB B LOOD [facility] [address] [place] [address], [facility] NPRG [facility] [address] [place] [address] documented in this encounter Visit Diagnoses Diagnosis Hypokalemia documented in this encounter Care Teams Engraver Tender Relationship Specialty Start Date End Date Osiris Otero APRN, C.N.Tia., R.N. [address] [place] [phone] PCP - General Family Medicine 09/17/23 12/08/23 documented as of this encounter
--- OUTSIDE RECORDS SUMMARY | 2024-01-16 12:04 | XMS_ITS | Encounter Summary ---
Author Name Unknown Organization [facility] Address [address] [place] [address] Care Team Providers Care Urban Planning Teacher Name Role Phone Osiris Otero APRN, C.N.P., R.N. Primary Care Provider Reason for Referral * Outpatient (Routine) - Authorized Specialty Diagnoses / Procedures Referred By Contfarideh t Referred To Contact Urology Diagnoses Neurogenic Bladder Osiris Otero APRN C.N.P., R.N. [address] [place] [address] [facility] Region Referral ID Status Reason Start Date Expiration Date V isits Requested Visits Authorized [id number] Authorized 11/10/2023 05/11/2025 1 1 ER COMMENTATOR Encounter Details Date Type Department Care Team (Late st Contact Info) Description 11/10/2023 Orders Only [facility] in [place] [address] [place] [phone] Osiris Otero APRN, C.N.P., R.N. [address] [place] [address] Neurogenic Bladder (Primary Dx) Social History Tobacco Use Types Packs/Day Years Used Date Smoking Tobacco: Never Smokeless Tobacco: Never Alcohol Use Standard Drinks/Week Comments Defer 0 (1 standard drink = 0.6 oz pur e alcohol) [facility] Utilities Answer Date Recorded In the past [...] your living situation today? I have a [facility] place to live 10/19/2023 Sex and Gender Information Value Date Recorded Sex Assigned at Not on file Gender Identity Not on file Sexual Orientation Not on file documented as of this encounter Plan of Treatment Scheduled Referrals Name Type Priority Associated Diagnoses Order Schedule Urology - General - neurogenic bladder consult (clinic) Outpatient Referral Routine Neurogenic Bladder Expected: 11/10/2023 (Approximate), Expires: 02/08/2025 documented as of this encounter Visit Diagnoses Diagnosis Neurogenic Bladder- Primary documented in this encounter Care Teams Urban Planning Teacher Relationship Specialty Start Date End Date Osiris Oetro APRN, C.N.P., R.N. [address] [place] [address] PCP - General Family Medicine 09/17/23 12/08/23 documented as of this encounter
--- OUTSIDE RECORDS SUMMARY | 2024-01-16 12:04 | XMS_ITS | Encounter Summary ---
Author Name Unknown Organization [facility] Address [address] [place] [address] Care Team Providers Care Oil Heat Technician Name Role Phone Shanna Elizabeth Murcia APRNNBuck, R.N. Primary Care Provider Reason for Referral * Speech Pathology (Routine) - Authorized Specialty Diagnoses / Procedures Referred By Contac t Referred To Contact Diagnoses Pneumonitis Due To Inhalation Of Food And Vomit (HCC) Procedures MOVEMAN Dysphagia evaluate and treat Fernando [place] [phone] [facility] Region Referral ID Status Reason Start Date Expiration Date V isits Requested Visits Authorized [id number] Authorized 11/07/2023 11/06/2024 1 1 ISH LANGUAGE LEARNER TUTOR Encounter Details Date Type Department Care Team (Latest Contact Info) Description 11/07/2023 9:00 AM ENGLISH LANGUAGE LEARNER TUTOR External Outreach Senior Services in [place] [address] [place] [phone] Fernando Camarillo M.D. 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 I have a [place] place to live 10/19/2023 Sex and Gender Information Value Date Recorded Sex Assigned at Not on file Gender Identity Not on file Sexual Orientation Not on file documented as of this encounter Last Filed Vital Signs Vital Sign Reading Time Taken Comments Blood Pressure 118/84 11/07/2023 7:12 AM ENGLISH LANGUAGE LEARNER TUTOR Pulse 84 11/07/2023 7:12 AM ENGLISH LANGUAGE LEARNER TUTOR Temperature 36.9 ??C (98.5 ??F) 11/07/2023 7:12 AM CS T Respiratory Rate 18 11/07/2023 7:12 AM ENGLISH LANGUAGE LEARNER TUTOR Oxygen Saturation 95% 11/07/2023 7:12 AM ENGLISH LANGUAGE LEARNER TUTOR Inhaled Oxygen Concentration - - Weight 60.5 kg (133 lb 6.4 oz) 11/07/2023 7:12 A M ENGLISH LANGUAGE LEARNER TUTOR Height - - Body Mass Index 26.19 10/19/2023 5:00 AM ENGLISH LANGUAGE LEARNER TUTOR documented in this encounter Progress Notes * Fernando Camarillo M.D. - 11/07/2023 9:00 AM CST SUBJECTIVE CHIEF COMPLAINT / REASON FOR VISIT I am asked to see Prerna, for a Re-Admission visit. Visit Type: In Person Face-to- Face visit HISTORY OF PRESENT ILLNESS Prerna is a 77 y.o. female who currently resides at [facility] in [place], [place]. Obtained from Patient and SBAR: This 77-year-old female presented to our facility following treatment for perirectal abscess. Patient was hospitalized at [facility] from 08/28/2023 through 09/17/2023, she has a history of paraplegia since age 6, has chronic indwelling Cristobal catheter. She is unable to walk and requires a Dustin lift. She developed a perirectal abscess and required incision and drainage, originally had seton placement which is now removed. Bone biopsy of the right ischial tuberosity was negative for osteomyelitis. She received 14 days of IV antibiotics. Patient also needs to wear a BiPAP at night due to severe obstructive sleep apnea. [facility] She was recently admitted to the [facility] after being seen in the emergency department in [place]. She had developed hypoxia and was felt to have aspiration pneumonia. She was discharged on10/27/2023, 11 days ago. She was placed on a prednisone taper. She was continued on a wound VAC for her right buttock ulcer. She does have some chronic low back pain and pain in her wounds that does radiate down her legs, primarily the right. She is using Tylenol and oxycodone for pain control. Patient is incontinent of bowels due to her paraplegia. She also has a Cristobal catheter in place. She feels like her breathing is back to normal. It has been noted that she desaturates episodically. Diagnosis Overview 1. 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 Chronic Diastolic (Congestive) Heart Failure ([facility]) 3. Unspecified Open Wound Right Buttock Initial 4. Pain Low Back Chronic 5. Other Adrenocortical Insufficiency ([facility]) 6. Osteoporosis 7. Neurogenic Bladder 8. Diarrhea 9. Arthritis Rheumatoid ([facility]) 10. Anemia 11. Hypertension Essential Primary 12. Corticosteroid Treatment Physician Assistant Certified Systemic 13. Paraplegia ([facility]) 14. Voice And Resonance Disorder - Primary 15. 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) 16. Obstructive Sleep Apnea Adult I reviewed EPIC notes as well as any facility-provided information (if applicable), lab/test results, and images/imaging reports. The following portions of the patient's history were reviewed and updated as appropriate: allergies, current medications, medical history, social history, surgical history and problem list. CODE STATUS: DNR/DNI REVIEW OF SYSTEMS Complete review of systems was performed, as allowable by patient's cognitive status, and incorporating collateral history if applicable. Relevant positives are noted elsewhere in this note, otherwise negative. OBJECTIVE VITAL SIGNS There were no vitals filed for this visit. PHYSICAL EXAMINATION General: No apparent distress. HEENT: No cervical adenopathy, thyromegaly, or carotid bruits. Lungs: Clear. Cardiovascular: Regular rate and rhythm without murmur. Extremities: No edema. Labs: Lab Results Component Value Date WBC 21.8 (H) 10/27/2023 HGB 14.4 10/27/2023 HCT 46.5 (H) 10/27/2023 MCV 85.2 10/27/2023 PLT 293 10/27/2023 Lab Results Component Value Date NA 142 11/04/2023 KSERUM 4.3 01/28/2023 KPLASMA 4.1 11/04/2023 CL 102 11/04/2023 BICARB 30 (H) 11/04/2023 CREATININE 0.28 (L) 11/04/2023 EGFR >90 11/04/2023 BUN 21 11/04/2023 ANIONGAP 10 11/04/2023 GLUCOSE 79 11/04/2023 CALCIUM 9.1 11/04/2023 ASSESSMENT / PLAN #1 Paraplegia (HCC) Since age 6 #2 Other Adrenocortical Insufficiency (HCC) Back down to prednisone 10 mg daily after taper #3 Neurogenic Bladder Indwelling Cristobal #4 Hypertension Essential Primary Controlled with metoprolol #5 Edema Localized Controlled on furosemide 40 mg daily. #6 Diarrhea Resolved #7 Corticosteroid Treatment Physician Assistant Certified Systemic Prednisone 10 mg daily #8 Benign Neoplasm Colon I do not have any updated records on this from [place] #9 Atrial Fibrillation Unspecified (HCC) Rate controlled with metoprolol. She is not on anticoagulation. #10 Arthritis Rheumatoid (HCC) On prednisone 10 mg daily #11 Anemia Recent hemoglobin is normal. 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 She appears euvolemic. #14 Abscess Perirectal On wound cares and will follow-up with general surgery in [place]. [facility] #15 Recent aspiration pneumonia. Will have swallow study performed. She has an appointment scheduled with pulmonology next month. ISH LANGUAGE LEARNER TUTOR documented in this encounter Miscellaneous Notes * Addendum Note - Fernando Camarillo M.D. 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) Paraplegia (HCC) Pain Low Back Chronic Other Adrenocortical Insufficiency (HCC) Osteoporosis Obstructive Sleep Apnea Adult Neurogenic Bladder Hypertension Essential Primary Diarrhea Corticosteroid Treatment Physician Assistant Certified Systemic Chronic Diastolic (Congestive) Heart Failure (HCC) Arthritis Rheumatoid (HCC) Anemia 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 [address] [place] [phone] PCP - General Family Medicine 09/17/23 12/08/23 documented as of this encounter
--- OUTSIDE RECORDS SUMMARY | 2024-01-16 12:04 | XMS_ITS | Encounter Summary ---
Author Name Unknown Organization [facility] Address [address] [place] [address] Care Team Providers Care Glass Novelty Maker Name Role Phone Shanna Osiris Doe APRN C.N.Tia., R.N. Primary Care Provider Encounter Details Date Type Department Care Team (Late st Contact Info) Description 11/28/2023 Clinical Communication Senior Services in [place] [address] [place] [phone] Haven Saxena, R.N. Social History Tobacco Use Types Packs/Day Years Used Date Smoking Tobacco: Never Smokeless Tobacco: Never Alcohol Use Standard Drinks/Week Comments Defer 0 (1 standard drink = 0.6 oz pur e alcohol) [facility] Utilities Answer Date Recorded In the past 12 months has [facility] [employer], gas, oil, or water [employer] [address] threatened to shut off services in your [...] your living situation today? I have a [facility] place to live 10/19/2023 Sex and Gender Information Value Date Recorded Sex Assigned at Not on file Gender Identity Not on file Sexual Orientation Not on file documented as of this encounter Plan of Treatment Not on file documented as of this encounter Visit Diagnoses Diagnosis Obstructive Sleep Apnea Adult- Primary documented in this encounter Additional Health Concerns Infection Onset Date Last Indicated Resolved Time COVID19 11/13/2023 11/13/2023 12/03/2023 5:55 AM PARAMEDIC RN documented as of this encounter Care Teams Glass Novelty Maker Relationship Specialty Start Date End Date Osiris Otero APRN, C.N.P., R.N. [address] [place] [phone] PCP - General Family Medicine 09/17/23 12/08/23 documented as of this encounter
--- OUTSIDE RECORDS SUMMARY | 2024-01-16 12:04 | XMS_ITS | Encounter Summary ---
Author Name Unknown Organization [facility] Address [address] [place] [address] Care Team Providers Care Senior Quality Manager Name Role Phone Elsewhere, Pcp Primary Care Provider Unavailabl e Encounter Details Date Type Department Care Team (Late st Contact Info) Description 12/01/2023 Clinical Communication Department of Pulmonary Medicine in [address] [phone] [facility] [address] [place] [phone] Social History Tobacco Use Types Packs/Day Years Used Date Smoking Tobacco: Never Smokeless Tobacco: Never Alcohol Use Standard Drinks/Week Comments Defer 0 (1 standard drink = 0.6 oz pur e alcohol) [facility] Utilities Answer Date Recorded In the past 12 months has [facility] [employer], gas, oil, or water [employer] threatened to shut off services in your [...] your living situation today? I have a [facility] place to live 10/19/2023 Sex and Gender [...] Time COVID19 11/13/2023 11/13/2023 12/03/2023 5:55 AM POTLINE MONITOR documented as of this encounter Care Teams Senior Quality Manager Relationship Specialty Start Date End Date Elsewhere, Pcp PCP - General Internal Medicine 12/09/23 documented as of this encounter
--- OUTSIDE RECORDS SUMMARY | 2024-01-16 12:04 | XMS_ITS | Encounter Summary ---
Author Name Unknown Organization [facility] Address [address] [place] [address] Care Team Providers Care Outreach Professional Name Role Phone Osiris Otero APRN, C.N.P., R.N. Primary Care Provider Encounter Details Date Type Department Care Team (Latest Contact Info) Description 11/28/2023 4:00 PM FEDERAL AID COORDINATOR External Outreach Senior Services in [place] [address] [place] [phone] Osiris Otero APRN C.N.P., R.N. [address] [place] [phone] Chronic Diastolic (Congestive) Heart Failure (HCC) (Primary [...] (HCC); Paraplegia (HCC); Voice And Resonance Disorder Social History Tobacco Use Types Packs/Day Years Used Date Smoking Tobacco: Never Smokeless Tobacco: Never Alcohol Use Standard Drinks/Week Comments Defer 0 (1 standard drink = 0.6 oz pur e alcohol) [facility] Utilities Answer Date Recorded In the past 12 months has [employer], gas, oil, or water [employer] threatened to shut off services in your [...] your living situation today? I have a [facility] place to live 10/19/2023 Sex and Gender Information Value Date Recorded Sex Assigned at Not on file Gender Identity Not on file Sexual Orientation Not on file documented as of this encounter Last Filed Vital Signs Vital Sign Reading Time Taken Comments Blood Pressure 110/68 11/28/2023 8:43 AM FEDERAL AID COORDINATOR Pulse 76 11/28/2023 8:43 AM FEDERAL AID COORDINATOR Temperature 36.7 ??C (98 ??F) 11/28/2023 8:43 AM FEDERAL AID COORDINATOR Respiratory Rate 18 11/28/2023 8:43 AM FEDERAL AID COORDINATOR Oxygen Saturation 95% 11/28/2023 8:43 AM FEDERAL AID COORDINATOR RA Inhaled Oxygen Concentration - - Weight 58.8 kg (129 lb 9.6 oz) 11/28/2023 8:43 A M FEDERAL AID COORDINATOR Height - - Body Mass Index 25.44 10/19/2023 5:00 AM FEDERAL AID COORDINATOR documented in this encounter Progress Notes * Osiris Otero APRN, C.N.P., R.N. - 11/28/2023 4:00 PM CST CHIEF COMPLAINT / REASON FOR VISIT The resident is being seen at [place], [place] for Discharge H&P Visit Type: In Person Face-to- Face visit SUBJECTIVE HISTORY OF PRESENT ILLNESS Obtained from Patient, Nursing, and SBAR: SNF VISIT for Post Hospital Follow up Visit This resident was recently hospitalized at: [facility] Date of hospitalization: DATE OF ADMISSION: 10/19/2023 DATE OF DISCHARGE: 10/22/2023 Reason for hospitalization: Acute Respiratory Failure With Hypoxia Prior to hospitalization patient did receive levofloxacin for 5 days. On 10/18/2023 she developed fever, cough, shortness of breath hypoxia. She was transferred to [place]. Her MRSA swab returned positive, Infectious Disease [...] off her oxygen. [facility]. She did have intermittent episodes of hypoxia where she would go down to 82% especially if on her left side. She would rebound back to 95% in about 15-30 seconds. Patient was previously hospitalized at [facility] from 08/28/2023 through 09/17/2023, she has a [...] obstructive sleep apnea. She is followed by [facility] wound care provider. Patient tested positive for COVID on 11/13/23. She said she had a day where she was very sleepy and acouple of days where she did not have much of an appetite. She did not receive any COVID therapies. Patient currently has wound VAC in place and will need to have this changed 3 times a week. She follows with the [facility]. She has a hospital bed at home with an air mattress. She alsohas a Dustin lift at home. She was previously living at home with family. Patient will discharge with home physical, occupational, speech and nursing and chief nursing executive. I personally reviewed the most recent following items: clinical notes, lab results The following medical problems were actively reviewed (including updating overview sections as necessary) and addressed as part of today's visit: Diagnosis Overview 1. 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 Chronic Diastolic (Congestive) Heart Failure (HCC) - Primary 3. 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 Pain Low Back Chronic 5. Other Adrenocortical Insufficiency (HCC) 6. Osteoporosis 7. Neurogenic Bladder 8. Edema Localized 9. Diarrhea 10. Arthritis Rheumatoid (HCC) 11. Anemia 12. Hypertension Essential Primary 13. Paraplegia (HCC) 14. Voice And Resonance Disorder 15. 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 Obstructive Sleep Apnea Adult CODE STATUS: FULL CODE REVIEW OF SYSTEMS Complete review of systems was performed, as allowable by patient's cognitive status, and incorporating collateral history if applicable. Relevant positives are noted elsewhere in this note, otherwise negative. OBJECTIVE Vital signs provided by facility: BP 110/68 Pulse 76 Temp 36.7 ??C Resp 18 Wt 58.8 kg SpO2 95% Comment: RA BMI 25.44 kg/m?? PHYSICAL EXAM Vitals reviewed. Constitutional General: [...] Comments: Bilateral legs have atrophy Skin Comments: Wound vac in place Neurological Mental Status: She is alert. Mental [...] and present management will be continued. #1 Pressure Injury (Ulcer) Stage 4 right gluteal fold and right gluteus She will have ongoing wound care management at home with home health nursing and follow up with [facility]. Multivitamin, zinc. Oxycodone to 7.5 mg four times per day as needed for pain.Unsure of discharge date, will send #45 tablets of oxycodone to [facility] in [place] once discharge date is set. #2 Chronic Diastolic (Congestive) Heart Failure (HCC) Furosemide, metoprolol last echocardiogram was January 2023 with EF greater than 75% #4 Obstructive Sleep Apnea Goal is 88-90%, requires BiPAP when sleeping, BIPAP at night and when napping. 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 Takes gabapentin three times per day #6 Anemia Stable #7 Arthritis Rheumatoid ([facility]) Prednisone 10 mg daily- chronic dosage #8 Diarrhea Scheduled loperamide and has daily probiotic, educated patient on holding loperamide for constipation. #9 Edema Localized Furosemide 40 mg daily and will decrease potassium to 20 mEq daily #10 Hypertension Essential Primary Metoprolol. 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 Home nursing to provide Cristobal catheter changes monthly and wound care three days a week. Home health aid for assistance with ADL's and bathing Mary is considered homebound because she requires a device for ambulation and leaving her home requires a considerable and taxing effort. Okay to discharge with current meds and treatments, follow-up with primary care provider in 7-10 days, follow-up with wound care center in [place]. Will discontinue Tessalon Perles and decrease potassium to 20 mEq daily PATIENT EDUCATION Ready to learn, no apparent [...] providing education/counseling to patient, family, and/or facility staff, communicating plan and any needed follow-up to other IDT members. Total time 60 minutes. 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 [address] [place] [phone] PCP - General Family Medicine 09/17/23 12/08/23 documented as of this encounter
--- OUTSIDE RECORDS SUMMARY | 2024-01-16 12:04 | XMS_ITS | Encounter Summary ---
Author Name Unknown Organization [facility] Address [address] [place] [address] Care Team Providers Care Student Support Advisor Name Role Phone Shanna Elizabeth Murcia APRNNJuan., R.N. Primary Care Provider Encounter Details Date Type Department Care Team (Late st Contact Info) Description 12/01/2023 Orders Only Department of Physical Medicine and Rehabilitation in [place], [place] [address] [place] [phone] Charlotte Craig, [facility] [address] [place] [phone] Social History Tobacco Use Types Packs/Day Years Used Date Smoking Tobacco: Never Smokeless Tobacco: Never Alcohol Use Standard Drinks/Week Comments Defer 0 (1 standard drink = 0.6 oz pur e alcohol) [facility] Utilities Answer Date Recorded In the past 12 months has [employer] gas, oil, or water [employer] threatened to shut off services in your [...] your living situation today? I have a [facility] place to live 10/19/2023 Sex and [...] Time COVID19 11/13/2023 11/13/2023 12/03/2023 5:55 AM ELECTRO TECH documented as of this encounter Care Teams Student Support Advisor Relationship Specialty Start Date End Date Osiris Otero APRN, C.N.P., R.N. [address] [place] [phone] PCP - General Family Medicine 09/17/23 12/08/23 documented as of this encounter
--- OUTSIDE RECORDS SUMMARY | 2024-01-16 12:04 | XMS_ITS | Referral Summary ---
Author Name Unknown Organization [facility] Address [address] [place] [address] Care Team Providers Care Dispatch Machine Runner Name Role Phone Elsewhere, Pcp Primary Care Provider Unavailabl e Source Comments Patient records contain information from all sites at [facility]. For routine questions regarding patient records, call [phone] during business hours, M-F 8:00 AM - 5:00 PM Central Time. Record requests for emergency care only can be directed to [phone] at any time.[facility] Encounters Date Type Department Care Team Description 12/01/2023 Orders Only Department of Physical Medicine and Rehabilitation in [place], [place] [address] [place] [address] Charlotte Craig, [facility]-CERTIFIED OPHTHALMIC ASSISTANT 12/01/2023 Clinical Communication Department of Pulmonary Medicine in [place], [place] [address] [place] [address] Mercy Poe, P.A.-C. 11/28/2023 Clinical Communication Senior Services in [place] [address] [place] [address] Haven Saxena, RCarleen 11/28/2023 4:00 PM GLASSWARE MAKER External Outreach Senior Services in [place] [address] [place] [address] Osiris Otero, AMIRAH, C.N.P., R.N. Chronic Diastolic (Congestive) Heart Failure [...] (HCC); Paraplegia (HCC); Voice And Resonance Disorder 11/26/2023 Documentation Senior Services in [address] [address] Osiris Otero APRN, C.N.P., R.N. 11/25/2023 Clinical Communication Senior Services in [place] [address] [place] [address] Osiris Otero APRN, C.N.P., R.N. 11/10/2023 Orders Only Senior Services in [address] [address] Osiris Otero APRN, C.N.P., R.N. Neurogenic Bladder (Primary Dx) 11/07/2023 9:00 AM GLASSWARE MAKER External Outreach Senior Services in [address] [address] Fernando Renee M.D. 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 Hypokalemia Discharge Disposition: Home or Self Care 10/31/2023 10:00 AM GLASSWARE MAKER External Outreach [facility] Services in [place] [address] [place] [address] Osiris Otero APRN C.N.P., R.N. 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 Schimming, Christopher, M.D. Hayes, Lisa M, M.D. Benson, Troy, M.D. 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 Edema Localized Discharge Disposition: Home or Self Care 10/20/2023 10:00 AM GLASSWARE MAKER Ancillary Procedure Department of Family Medicine 10/19/2023 10:30 AM GLASSWARE MAKER Ancillary Procedure Department of Emergency Medicine 10/19/2023 10:25 AM GLASSWARE MAKER Ancillary Procedure Department of Emergency Medicine 10/19/2023 10:15 AM GLASSWARE MAKER Ancillary Procedure Department of Emergency Medicine 10/19/2023 10:10 AM GLASSWARE MAKER Ancillary Procedure Department of Emergency Medicine 10/19/2023 9:50 AM GLASSWARE MAKER Ancillary Procedure Department of Emergency Medicine 10/18/2023 8:38 PM GLASSWARE MAKER - 10/19/2023 12:45 AM [facility] Emergency [place] Emergency Department [address] [place] [address] Iam Herrera D.O. Pneumonia (Primary Dx); Hypoxia Discharge Disposition: [facility] 10/18/2023 Intake [facility] 10/17/2023 Orders Only Senior Services in [place] [address] [place] [address] Osiris Otero APRN, C.N.P., R.N. from Last 3 Months Allergies Active Allergy Reactions Criticality Noted Date [...] 09/19/2023 Hypertension Essential Primary 09/19/2023 Corticosteroid Treatment Retail Account Manager Systemic 05/2023 Paraplegia 09/19/2023 Osteoporosis 06/28/2021 Acute [...] Hypoxia 09/19/2023 10/14/2023 Other Acidosis 09/19/2023 11/06/2023 Immunizations Name Administration Dates Next Due DT, [...] drink = 0.6 oz pur e alcohol) [facility] Utilities Answer Date Recorded In [...] your living situation today? I have a [facility] place to live 10/19/2023 Sex and Gender Information Value Date Recorded Sex Assigned at Not on file Gender Identity Not on file Sexual Orientation Not on file Last Filed Vital Signs Vital Sign Reading Time Taken Comments Blood Pressure 110/68 11/28/2023 8:43 AM GLASSWARE MAKER Pulse 76 11/28/2023 8:43 AM GLASSWARE MAKER Temperature 36.7 ??C (98 ??F) 11/28/2023 8:43 AM GLASSWARE MAKER Respiratory Rate 18 11/28/2023 8:43 AM GLASSWARE MAKER Oxygen Saturation 95% 11/28/2023 8:43 AM GLASSWARE MAKER RA Inhaled Oxygen Concentration - - Weight 58.8 kg (129 lb 9.6 oz) 11/28/2023 8:43 A M GLASSWARE MAKER Height 152 cm (4' 11.84) 10/19/2023 5:00 AM GLASSWARE MAKER Body Mass Index 25.44 10/19/2023 5:00 AM GLASSWARE MAKER Plan of Treatment Not on file Procedures Procedure Name Priority Date/Time Associated Diagnosis Comments EXTM HOME SARS CORONAVIRUS-2 (COVID-19) ANTIGEN, V Routine 11/13/2023 BASIC METABOLIC PANEL, S/P Routine 11/04/2023 6:52 AM GLASSWARE MAKER Hypokalemia DX CHEST PORTABLE 1 VIEW RAD - Routine (most inpatients and all outpatients) 10/27/2023 10:24 AM GLASSWARE MAKER URINALYSIS WITH MICROSCOPIC Routine 10/27/2023 10:15 AM GLASSWARE MAKER MORPHOLOGY EVALUATION Routine 10/27/2023 6:48 AM GLASSWARE MAKER BASIC METABOLIC PANEL, S/P Routine 10/27/2023 6:48 AM GLASSWARE MAKER CBC WITH DIFFERENTIAL, B Routine 10/27/2023 6:48 AM GLASSWARE MAKER DX CHEST PORTABLE 1 VIEW RAD - Semiurgent (Fast; most ED patients; some inpatients) 10/22/2023 10:53 AM GLASSWARE MAKER MORPHOLOGY EVALUATION Routine 10/22/2023 6:19 AM GLASSWARE MAKER C-REACTIVE PROTEIN (CRP), S/P Routine 10/22/2023 6:19 AM GLASSWARE MAKER CBC WITH DIFFERENTIAL, B Routine 10/22/2023 6:19 AM GLASSWARE MAKER MORPHOLOGY EVALUATION Routine 10/21/2023 6:32 AM GLASSWARE MAKER CBC WITH DIFFERENTIAL, B Routine 10/21/2023 6:32 AM GLASSWARE MAKER BASIC METABOLIC PANEL, S/P Routine 10/21/2023 6:32 AM GLASSWARE MAKER FAMILY MEDICINE IMAGE EXAM Routine 10/20/2023 10:00 AM GLASSWARE MAKER MORPHOLOGY EVALUATION Routine 10/20/2023 6:08 AM GLASSWARE MAKER CBC WITH DIFFERENTIAL, B Routine 10/20/2023 6:08 AM GLASSWARE MAKER BASIC METABOLIC PANEL, S/P Routine 10/20/2023 6:08 AM GLASSWARE MAKER C-REACTIVE PROTEIN (CRP), S/P Routine 10/20/2023 6:08 AM GLASSWARE MAKER EMERGENCY DEPARTMENT IMAGE EXAM Routine 10/19/2023 10:26 AM GLASSWARE MAKER EMERGENCY DEPARTMENT IMAGE EXAM Routine 10/19/2023 10:25 AM GLASSWARE MAKER EMERGENCY DEPARTMENT IMAGE EXAM Routine 10/19/2023 10:09 AM GLASSWARE MAKER EMERGENCY DEPARTMENT IMAGE EXAM Routine 10/19/2023 10:09 AM GLASSWARE MAKER EMERGENCY DEPARTMENT IMAGE EXAM Routine 10/19/2023 9:50 AM GLASSWARE MAKER MORPHOLOGY EVALUATION Routine 10/19/2023 4:27 AM GLASSWARE MAKER CBC WITH DIFFERENTIAL, B Routine 10/19/2023 4:27 AM GLASSWARE MAKER HEPATIC FUNCTION PANEL, S Routine 10/19/2023 4:27 AM GLASSWARE MAKER BASIC METABOLIC PANEL, S/P Routine 10/19/2023 4:27 AM GLASSWARE MAKER C-REACTIVE PROTEIN (CRP), S/P Routine 10/19/2023 4:27 AM GLASSWARE MAKER D-DIMER, P Routine 10/19/2023 4:27 AM GLASSWARE MAKER NASAL SCREEN FOR MRSA BY RAPID PCR Routine 10/19/2023 3:35 AM GLASSWARE MAKER NT-PRO B-TYPE NATRIURETIC PEPTIDE (BNP), S STAT 10/18/2023 11:48 PM GLASSWARE MAKER ECG Routine 10/18/2023 11:32 PM GLASSWARE MAKER URINALYSIS WITH MICROSCOPIC Routine 10/18/2023 9:14 PM GLASSWARE MAKER BACTERIAL CULTURE, AEROBIC + SUSC, URINE Routine 10/18/2023 9:14 PM GLASSWARE MAKER DX CHEST PORTABLE 1 VIEW RAD - Semiurgent (Fast; most ED patients; some inpatients) 10/18/2023 9:01 PM GLASSWARE MAKER BASIC METABOLIC PANEL, S/P STAT 10/18/2023 8:46 PM GLASSWARE MAKER LACTATE FOR SEPSIS WITH REFLEX STAT 10/18/2023 8:46 PM GLASSWARE MAKER CBC WITH DIFFERENTIAL, B STAT 10/18/2023 8:46 PM GLASSWARE MAKER BACTERIA / LUCY CULTURE, BLOOD STAT 10/18/2023 8:46 PM GLASSWARE MAKER BACTERIA / LUCY CULTURE, BLOOD STAT 10/18/2023 8:46 PM GLASSWARE MAKER INFLUENZA A, B, RSV, PCR, POCT STAT 10/18/2023 8:35 PM GLASSWARE MAKER SARS CORONAVIRUS 2, PCR RAPID, V STAT 10/18/2023 8:28 PM GLASSWARE MAKER from Last 3 Months Results * (ABNORMAL) EXT Home SARS Coronavirus-2 (COVID-19) Antigen (11/13/2023) EXT Home SARS-CoV-2 Antigen Presumptive Positive(A) Presumptive Negative OTHER (SPECIFY IN CONTACT ACID PLANT OPERATOR HELPER) Swab 11/13/2023 Historical Provider LAB MICROBIOLOGY - G ENERAL ORDERABLES Performing Organization Address City/State/[facility] Co de Phone Number OTHER (SPECIFY IN CONTACT ACID PLANT OPERATOR HELPER) N/A * (ABNORMAL) Basic Metabolic Panel (11/04/2023 6:52 AM GLASSWARE MAKER) Only the most recent of6 resultswithin the time period is included. Potassium, P 4.1 3.6 - 5.2 mmol/L 11/04/2023 8:14 AM GLASSWARE MAKER [facility] Sodium, P 142 135 - 145 mmol/L 11/04/2023 8:14 AM GLASSWARE MAKER [facility] Chloride, P 102 98 - 107 mmol/L 11/04/2023 8:14 AM GLASSWARE MAKER [facility] Bicarbonate, P 30(H) 22 - 29 mmol/L 11/04/2023 8:14 AM GLASSWARE MAKER [facility] Anion Gap, P 10 7 - 15 11/04/2023 8:14 AM GLASSWARE MAKER [facility] BUN (Blood Urea Nitrogen), P 21 6 - 21 mg/dL 11/04/2023 8:14 AM GLASSWARE MAKER [facility] Creatinine 0.28(L) 0.59 - 1.04 mg/dL 11/04/2023 8:14 AM GLASSWARE MAKER [facility] Estimated GFR (eGFR) >90 >=60 mL/min/BSA 11/04/2023 8:14 AM GLASSWARE MAKER [facility] Comment: Estimated GFR calculated using the 2020 CKD_EPI creatinine equation. Calcium, Total, P 9.1 8.8 - 10.2 mg/dL 11/04/2023 8:14 AM GLASSWARE MAKER [facility] Glucose, P 79 70 - 140 mg/dL 11/04/2023 8:14 AM GLASSWARE MAKER [facility] Blood (Blood, Venous) 11/04/2023 6:52 AM GLASSWARE MAKER 11/04/2023 7:43 AM GLASSWARE MAKER Osiris Otero APRN, C.N.P., R.N. LAB B LOOD ADD-ON [facility] [address] [place] [address], [facility] NPRG [facility] [address] [place] [address] * DX Chest Portable 1 View (10/27/2023 10:24 AM GLASSWARE MAKER) Only the most recent of3 resultswithin the time period is included. Anatomical Region Laterality Modality Chest, Thoracic RST LOS, Tho racic ARZ LOS, Thoracic FLA LOS N/A Digital Radiography Impressions 10/27/2023 10:34 AM GLASSWARE MAKER No acute infiltrates. There is of bibasilar discoid atelectasis as described. Narrative 10/27/2023 10:34 AM GLASSWARE MAKER EXAM: DX CHEST PORTABLE 1 VIEW COMPARISON: [...] is of bibasilar discoid atelectasis asdescribed. [facility] DI[facility]NOSTIC IMAGI NG PROCEDURES * (ABNORMAL) Urinalysis with Microscopic: Urine, Indwelling Catheter (10/27/2023 10:15 AM GLASSWARE MAKER) Only the most recent of2 resultswithin the time period is included. Source Urine, Urine, Indwelling Catheter 10/27/2023 10:20 AM GLASSWARE MAKER [facility] Clarity Slightly Cloudy(A) Clear 10/27/2023 10:22 AM GLASSWARE MAKER [facility] Color Yellow 10/27/2023 10:22 AM GLASSWARE MAKER [facility] Comment: ----REFERENCE VALUE---- Colorless Yellow Alana Blood Moderate(A) Negative 10/27/2023 10:22 AM GLASSWARE MAKER [facility] Nitrite Negative Negative 10/27/2023 10:22 AM GLASSWARE MAKER [facility] Leukocyte Esterase Moderate(A) Negative 10/27/2023 10:22 AM GLASSWARE MAKER [facility] Protein Negative mg/dL 10/27/2023 10:22 AM GLASSWARE MAKER [facility] Comment: ----REFERENCE VALUE---- Negative Trace Glucose Negative Negative mg/dL 10/27/2023 10:22 AM GLASSWARE MAKER [facility] Ketones, QI(U) Negative Negative mg/dL 10/27/2023 10:22 AM GLASSWARE MAKER [facility] Bilirubin Negative Negative 10/27/2023 10:22 AM GLASSWARE MAKER [facility] pH 5.5 5.0 - 8.0 10/27/2023 10:22 AM GLASSWARE MAKER [facility] Specific [place] 1.015 1.001 - 1.035 10/27/2023 10:22 AM GLASSWARE MAKER [facility] Urobilinogen 0.2 0.2 - 1.0 mg/dL 10/27/2023 10:22 AM GLASSWARE MAKER [facility] White Blood Cells 31-40(A) /hpf 10/27/2023 10:33 AM GLASSWARE MAKER [facility] Comment: ----REFERENCE VALUE---- Males: 0-3 Females: 0-10 Unknown: 0-10 Red Blood Cells 11-20(A) 0 - 2 /hpf 10:33 AM GLASSWARE MAKER [facility] Dysmorphic Red Blood Cells <=25 <=25 % 10/27/2023 10:33 AM GLASSWARE MAKER [facility] Hyaline Casts 1-3 /lpf 10/27/2023 10:33 AM GLASSWARE MAKER [facility] Crystals Calcium Oxalate(A) None Seen /lpf 10/27/2023 10:33 AM GLASSWARE MAKER [facility] Mucus Present /hpf 10/27/2023 10:33 AM GLASSWARE MAKER [facility] Squamous Cells Occ-3 /hpf 10/27/2023 10:33 AM GLASSWARE MAKER [facility] Bacteria Present(A) None Seen 10/27/2023 10:33 AM GLASSWARE MAKER [facility] Yeast Present(A) None Seen 10/27/2023 10:33 AM GLASSWARE MAKER [facility] Urine (Urine, Indwelling Catheter) 10/27/2023 10:15 AM GLASSWARE MAKER 10/27/2023 10:20 AM GLASSWARE MAKER Camden Munoz M.D. LAB URINE ORDERABLES Performing Organization Address [facility] Co de Phone Number [facility] [address] [place] [address], [facility] in [address] [address] * (ABNORMAL) Morphology Evaluation (10/27/2023 6:48 AM GLASSWARE MAKER) Only the most recent of5 resultswithin the time period is included. RBC Morphology See Specific Findings 10/27/2023 7:34 AM GLASSWARE MAKER [facility] PLT Morphology Normal 10/27/2023 7:34 AM GLASSWARE MAKER [facility] PLT Estimate Adequate Adequate 10/27/2023 7:34 AM GLASSWARE MAKER [facility] Anisocytosis Slight(A) 10/27/2023 7:34 AM GLASSWARE MAKER [facility] Reactive/Atypica l Lymphocytes Present(A) Not Seen 10/27/2023 7:34 AM GLASSWARE MAKER [facility] Hypochromia Slight(A) Not Seen 10/27/2023 7:34 AM GLASSWARE MAKER [facility] Blood 10/27/2023 6:48 AM GLASSWARE MAKER 10/27/2023 7:04 AM GLASSWARE MAKER Nicole Kaiser M.D. LAB BLOOD ADD-ON Performing Organization Address City/[facility]/ZIP Co de Phone Number [facility] [address] [place] [phone], [facility] in [address] [address] * (ABNORMAL) CBC with Differential, Blood (10/27/2023 6:48 AM GLASSWARE MAKER) Only the most recent of6 resultswithin the time period is included. Hemoglobin 14.4 11.6 - 15.0 g/dL 10/27/2023 7:34 AM GLASSWARE MAKER [facility] Hematocrit 46.5(H) 35.5 - 44.9 % 10/27/2023 7:34 AM GLASSWARE MAKER [facility] Erythrocytes 5.46(H) 3.92 - 5.13 x10(12)/L 10/27/2023 7:34 AM GLASSWARE MAKER [facility] MCV 85.2 78.2 - 97.9 fL 10/27/2023 7:34 AM GLASSWARE MAKER [facility] RBC Distrib Width 19.9(H) 12.2 - 16.1 % 10/27/2023 7:34 AM GLASSWARE MAKER [facility] Platelet Count 293 157 - 371 x10(9)/L 10/27/2023 7:34 AM GLASSWARE MAKER [facility] Leukocytes 21.8(H) 3.4 - 9.6 x10(9)/L 10/27/2023 7:34 AM GLASSWARE MAKER [facility] Neutrophils 14.70(H) 1.56 - 6.45 x10(9)/L 10/27/2023 7:34 AM GLASSWARE MAKER [facility] Lymphocytes 5.51(H) 0.95 - 3.07 x10(9)/L 10/27/2023 7:34 AM GLASSWARE MAKER [facility] Monocytes 1.35(H) 0.26 - 0.81 x10(9)/L 10/27/2023 7:34 AM GLASSWARE MAKER [facility] Eosinophils 0.09 0.03 - 0.48 x10(9)/L 10/27/2023 7:34 AM GLASSWARE MAKER [facility] Basophils 0.10(H) 0.01 - 0.08 x10(9)/L 10/27/2023 7:34 AM GLASSWARE MAKER [facility] Blood (Blood, Venous) 10/27/2023 6:48 AM GLASSWARE MAKER 10/27/2023 7:04 AM GLASSWARE MAKER Nicole Kaiser M.D. LAB BLOOD ADD-ON [facility] [address] [place] [phone], [facility] in [address] [address] * (ABNORMAL) CRP (C-Reactive Protein) (10/22/2023 6:19 AM GLASSWARE MAKER) Only the most recent of3 resultswithin the time period is included. C-Reactive Protein (CRP), P 12.0(H) <5.0 mg/L 10/22/2023 7:01 AM GLASSWARE MAKER [facility] Blood (Blood, Venous) 10/22/2023 6:19 AM GLASSWARE MAKER 10/22/2023 6:39 AM GLASSWARE MAKER Williams Barber M.D. LAB BLOOD ADD -ON Performing Organization Address [facility] Co de Phone Number [facility] [address] [place] [phone], [facility] in [place] [address] * Buttocks/Sacrum (bilateral)-Family Medicine Image Exam (10/20/2023 10:00 AM GLASSWARE MAKER) 10/20/2023 9:58 AM GLASSWARE MAKER Narrative IIMS - 10/20/2023 10:00 AM GLASSWARE MAKER This order has been created and auto-finalized to support the import of images acquired without order. The clinical documentation to support these images can be found on the encounter that produced images. Provider Not In System IMG NON RAD IMAGI NG PROCEDURES Performing Organization Address [facility] de Phone Number IIMS NA * Anus-Emergency Department Image Exam (10/19/2023 10:26 AM GLASSWARE MAKER) Only the most recent of5 resultswithin the time period is included. 10/19/2023 10:2 3 AM GLASSWARE MAKER Narrative IIMS - 10/19/2023 10:26 AM GLASSWARE MAKER This order has been created and auto-finalized to support the import of images acquired without order. The clinical documentation to support these images can be found on the encounter that produced images. Provider Not In System IMG NON RAD IMAGI NG PROCEDURES Performing Organization Address [facility] de Phone Number IIMS NA * (ABNORMAL) Hepatic Function Panel (10/19/2023 4:27 AM GLASSWARE MAKER) Bilirubin, Total, P 0.4 0.0 - 1.2 mg/dL 10/19/2023 4:49 AM GLASSWARE MAKER [facility] Bilirubin, Direct, P <0.2 0.0 - 0.3 mg/dL 10/19/2023 4:49 AM GLASSWARE MAKER [facility] Aspartate Aminotransferase (AST), P 38 8 - 43 U/L 10/19/2023 4:49 AM GLASSWARE MAKER [facility] Alanine Aminotransferase (ALT), P 17 7 - 45 U/L 10/19/2023 4:49 AM GLASSWARE MAKER [facility] Alkaline Phosphatase, P 148(H) 35 - 104 U/L 10/19/2023 4:49 AM GLASSWARE MAKER [facility] Albumin, P 3.1(L) 3.5 - 5.0 g/dL 10/19/2023 4:49 AM GLASSWARE MAKER [facility] Protein, Total, P 5.0(L) 6.3 - 7.9 g/dL 10/19/2023 4:49 AM GLASSWARE MAKER [facility] Blood (Blood, Venous) 10/19/2023 4:27 AM GLASSWARE MAKER 10/19/2023 4:29 AM GLASSWARE MAKER Pancho Burr M.D. LAB BLOOD ADD-ON [facility] [address] [place] [address], [facility] [place] [address] * (ABNORMAL) D-Dimer (10/19/2023 4:27 AM GLASSWARE MAKER) D-Dimer, P 3988(H) <=500 ng/mL FEU 10/19/2023 4:46 AM GLASSWARE MAKER [facility] Comment: D-dimer concentrations increase with age. ??For [...] (PE). Blood (Blood, Venous) 10/19/2023 4:27 AM GLASSWARE MAKER 10/19/2023 4:29 AM GLASSWARE MAKER Pancho Burr M.D. LAB BLOOD ADD-ON [facility] [address] [place] [address], [facility] in [place] [address] [place] [address] * (ABNORMAL) MRSA PCR, Nasal (10/19/2023 3:35 AM GLASSWARE MAKER) MRSA Screen, Nasal by PCR Positive(A ) Negative 10/19/2023 5:28 PM GLASSWARE MAKER MK Semi-Urgent This is a semi-urgen t result(FLEMING) [facility] Swab (Nares) 10/19/2023 3:35 AM GLASSWARE MAKER 10/19/2023 4:22 PM GLASSWARE MAKER Pancho Burr M.D. LAB MICROBIOLOGY - GENERAL ORDERABLES Performing Organization Address City/[facility] Co de Phone Number [facility] [address] [place] [address], [facility] in [place] [address] [place] [address] * (ABNORMAL) NT-Pro B-Type Natriuretic Peptide (BNP) (10/18/2023 11:48 PM GLASSWARE MAKER) NT-Pro BNP 589(H) <=540 pg/mL 10/19/2023 12:23 AM GLASSWARE MAKER [facility] Comment: NT-proBNP values less than 300 [...] failure. Blood (Blood, Venous) 10/18/2023 11:48 PM GLASSWARE MAKER 10/18/2023 11:59 PM GLASSWARE MAKER Iam Herrera D.O. LAB BLOOD ADD-ON [facility] [address] [place] [address], [place] NPRG [facility] [address] [place] [address] * ECG 12 Lead (10/18/2023 11:32 PM GLASSWARE MAKER) Ventricular Rate ECG/Min 101 BPM MUSE WV Interval 140 ms MUSE QRSD Interval 72 ms MUSE QT Interval 326 ms MUSE QTC Interval 422 ms MUSE P Becker 58 degrees MUSE R Becker 18 degrees MUSE T Wave Becker 57 degrees MUSE 10/18/2023 11:3 2 PM GLASSWARE MAKER 10/18/2023 11:52 PM GLASSWARE MAKER Impressions MUSE - 10/18/2023 11:52 PM GLASSWARE MAKER Sinus tachycardia Nonspecific T wave abnormality No previous ECGs available Reviewed by ANGELITO Allen Narrative Procedure Note Roshan East M.D., Ph.D. - 10/18/2023 IMPRESSION: Sinus tachycardia Nonspecific T wave abnormality No previous ECGs available Reviewed by ANGELITO Allen Iam Herrera D.O. ECG ORDERABLES Performing Organization Address [facility] Co de Phone Number MUSE NA * (ABNORMAL) Bacterial Culture, Aerobic + Susceptibility, Urine (10/18/2023 9:14 PM GLASSWARE MAKER) Urine Culture YEAST >100,000 cfu/mL (A) 10/20/2023 12:11 PM GLASSWARE MAKER [facility] Comment:No further identific ation Urine (Urine, Indwelling Catheter) 10/18/2023 9:14 PM GLASSWARE MAKER 10/19/2023 4:21 PM GLASSWARE MAKER Comment:Specimen Source Site : Urine Iam Herrera D.O. LAB MICROBIOLOGY - G ENERAL ORDERABLES [facility] [address] [place] [address], [facility] MKTO [facility] in [place] [address] [place] [address] * Lactate for Sepsis with Reflex (10/18/2023 8:46 PM GLASSWARE MAKER) Lactate, P 1.8 0.5 - 2.2 mmol/L 10/18/2023 9:12 PM GLASSWARE MAKER [facility] Blood (Blood, Venous) 10/18/2023 8:46 PM GLASSWARE MAKER 10/18/2023 8:49 PM GLASSWARE MAKER Iam Herrera D.O. LAB BLOOD NON ADD-ON [facility] [address] [place] [address], [facility] [address] [address] * Bacteria / Lucy Culture, Blood #2 (10/18/2023 8:46 PM [employer]) Only the most recent of2 resultswithin the time period is included. Pathologist [facility] Bacteria/Herlinda da Culture, Blood No growth after 5 day/s of incubation. 10/23/2023 9:03 PM [employer] NPRG Blood (Blood, Peripheral Draw) 10/18/2023 8:46 PM [employer] 10/18/2023 8:49 PM [employer] Comment:Specimen Source Site : Blood Iam Herrera D.O. LAB MICROBIOLOGY - G ENERAL ORDERABLES [facility] [address] [place] [address], [address] [address] * Influenza A/B and RSV, PCR, Point of Care (10/18/2023 8:35 PM [employer]) Pathologist [facility] Influenza A, POCT Negative Negative 10/18/2023 8:52 PM [employer] [facility] Influenza B, POCT Negative Negative 10/18/2023 8:52 PM [employer] [facility] Resp Syncytial Virus, POCT Negative Negative 10/18/2023 8:52 PM [employer] [facility] Swab (Nasopharynx) 10/18/2023 8:35 PM [employer] 10/18/2023 8:50 PM GLASSWARE MAKER Iam Herrera D.O. LAB POCT ORDERABLES - DEVICE Performing Organization Address [facility] Co de Phone Number [facility] [address] [place] [address], [facility] NPRG [address] [place] [address] * SARS Coronavirus 2, PCR Rapid Symptomatic (10/18/2023 8:28 PM GLASSWARE MAKER) [facility] [address] SARS CoV-2, PCR, Rapid, V Undetected Undetected 10/18/2023 9:11 PM GLASSWARE MAKER NPRG Comment: ----ADDITIONAL INFORMATION---- This RT-PCR test was performed using the [employer] SARS-CoV-2 and Influenza A/B Reagent assay from [employer], which has received Emergency Use Authorization(EUA) by the U.S. Food and Drug Administration. Fact sheets for this Emergency Use Authorization (EUA) assay can be found at the following links: For Healthcare Providers: https://www.fda.gov/media/273099/download For Patients: https://www.fda.gov/media/719460/download SARS Coronavirus 2, Source, Rapid Swab, Nasopharynx 10/18/2023 8:49 PM GLASSWARE MAKER NPRG Swab (Nasopharynx) 10/18/2023 8:28 PM GLASSWARE MAKER 10/18/2023 8:49 PM GLASSWARE MAKER Iam Herrera D.O. LAB MICROBIOLOGY - G ENERAL ORDERABLES Performing Organization Address City/[facility]/ZIP Co de Phone Number [facility] [address] [place] [address], [facility] [address] [place] [address] from Last 3 Months Advance Directives For more information, please contact: [phone] Documents on File Type Date Recorded Patient Steam Conditioner Operator Expl anation Advance Directives 09/19/2023 4:06 PM POLS T/MOLST * DNR/DNI (Latest Code Status on File) Date Activated Date Inactivated Comments 10/19/2023 6:50 PM 10/27/2023 4:16 PM * Full Code Date Activated Date Inactivated Comments 10/19/2023 2:13 AM 10/19/2023 6:50 PM Question Answer Comments Full Code: Discussed Care Teams Dispatch Machine Runner Relationship Specialty Start Date End Date Elsewhere, Pcp PCP - General Internal Medicine 12/09/23
--- OUTSIDE RECORDS SUMMARY | 2024-01-16 12:05 | XMS_ITS | Encounter Summary ---
Author Name Unknown Organization [facility] Address [address] [place] [address] Care Team Providers Care Carnallite Plant Operator Name Role Phone Shanna Mars Murcia APRN.N.Tia., R.N. Primary Care Provider Encounter Details Date Type Department Care Team (Late st Contact Info) Description 10/19/2023 10:10 AM ODD BUNDLE WORKER Ancillary Procedure Department of Emergency Medicine Social History Tobacco Use Types Packs/Day Years Used Date Smoking Tobacco: Never Smokeless Tobacco: Never Alcohol Use Standard Drinks/Week Comments Defer 0 (1 standard drink = 0.6 oz pur e alcohol) [facility] Utilities Answer Date Recorded In the past 12 months has e electric, gas, oil, or water [employer] threatened to shut off services in your [...] your living situation today? I have a [facility] place to live 10/19/2023 Sex and Gender Information Value Date Recorded Sex Assigned at Not on file Gender Identity Not on file Sexual Orientation Not on file documented as of this encounter Plan of Treatment Not on file documented as of this encounter Procedures Procedure Name Priority Date/Time Associated Diagnosis Comments EMERGENCY DEPARTMENT IMAGE EXAM Routine 10/19/2023 10:09 AM ODD BUNDLE WORKER documented in this encounter Results * Buttock-Emergency Department Image Exam (10/19/2023 10:09 AM ODD BUNDLE WORKER) 10/19/2023 10:0 7 AM ODD BUNDLE WORKER Narrative IIMS - 10/19/2023 10:09 AM ODD BUNDLE WORKER This order has been created and auto-finalized to support the import of images acquired without order. The clinical documentation to support these images can be found on the encounter that produced images. Provider Not In System IMG NON RAD IMAGI NG PROCEDURES IIMS NA documented in this encounter Visit Diagnoses Not on filedocumented in this encounter Care Teams Carnallite Plant Operator Relationship Specialty Start Date End Date Osiris Otero APRN, C.N.P., R.N. [address] [place] [address] PCP - General Family Medicine 09/17/23 12/08/23 documented as of this encounter
--- OUTSIDE RECORDS SUMMARY | 2024-01-16 12:05 | XMS_ITS | Encounter Summary ---
Author Name Unknown Organization [facility] Address [address] [place] [address] Care Team Providers Care Quality Control Technician Name Role Phone Osiris Otero APRN, C.N.Tia., R.N. Primary Care Provider Encounter Details Date Type Department Care Team (Late st Contact Info) Description 10/20/2023 10:00 AM STATION USHER Ancillary Procedure Department of Family Medicine Social History Tobacco Use Types Packs/Day Years Used Date Smoking Tobacco: Never Smokeless Tobacco: Never Alcohol Use Standard Drinks/Week Comments Defer 0 (1 standard drink = 0.6 oz pur e alcohol) [facility] Utilities Answer Date Recorded In the past 12 months has e electric, gas, oil, or water [employer] threatened to shut off services in your [...] your living situation today? I have a [facility] place to live 10/19/2023 Sex and Gender Information Value Date Recorded Sex Assigned at Not on file Gender Identity Not on file Sexual Orientation Not on file documented as of this encounter Plan of Treatment Not on file documented as of this encounter Procedures Procedure Name Priority Date/Time Associated Diagnosis Comments FAMILY MEDICINE IMAGE EXAM Routine 10/20/2023 10:00 AM STATION USHER documented in this encounter Results * Buttocks/Sacrum (bilateral)-Family Medicine Image Exam (10/20/2023 10:00 AM STATION USHER) 10/20/2023 9:58 AM STATION USHER Narrative IIMS - 10/20/2023 10:00 AM STATION USHER This order has been created and auto-finalized to support the import of images acquired without order. The clinical documentation to support these images can be found on the encounter that produced images. Provider Not In System IMG NON RAD IMAGI NG PROCEDURES IIMS NA documented in this encounter Visit Diagnoses Not on filedocumented in this encounter Care Teams Quality Control Technician Relationship Specialty Start Date End Date Osiris Otero APRN, C.N.P., R.N. [address] [place] [address] PCP - General Family Medicine 09/17/23 12/08/23 documented as of this encounter
--- OUTSIDE RECORDS SUMMARY | 2024-01-16 12:05 | XMS_ITS | Encounter Summary ---
Author Name Unknown Organization [facility] Address [address] [place] [address] Care Team Providers Care Heat Welder Plastics Name Role Phone Osiris Otero APRN C.N.P., R.N. Primary Care Provider Encounter Details Date Type Department Care Team (Latest Contact Info) Description 10/21/2023 1:41 AM TIER TRUCK DRIVER - 10/21/2023 11:59 PM [facility] Hospital Encounter Department of Laboratory Medicine in [place], [place] [address] [place] [address] Osiris Otero APRN, C.N.P., R.N. [address] [place] [phone] Edema Localized Discharge Disposition: Home or Self Care Social History Tobacco Use Types Packs/Day Years Used Date Smoking Tobacco: Never Smokeless Tobacco: Never Alcohol Use Standard Drinks/Week Comments Defer 0 (1 standard drink = 0.6 oz pur e alcohol) [facility] Utilities Answer Date Recorded In [...] your living situation today? I have a [facility] place to live 10/19/2023 Sex and [...] as needed for cough. 0 10/14/2023 11/28/2023 furosemide (LASIX) 40 mg tablet 60 mg in the morning and 40 mg at noon 0 10/14/2023 10/27/2023 ipratropium-albuteroL (DUONEB) 0.5-2.5 mg/3 mL nebulizer solution Inhale 3 mL by nebulization 4 (four) times a day for 5 days. 0 10/14/2023 10/27/2023 loperamide (IMODIUM A-D) 2 mg capsule Take 2 mg by mouth 3 (three) times a day before meals. 0 09/17/2023 11/07/2023 metoprolol tartrate (LOPRESSOR) 50 mg tablet Take 50 mg by mouth daily. 0 09/18/2023 10/31/2023 nystatin (NYSTOP) 100,000 unit/gram powder Apply 1 Application topically 2 (two) times a day. Apply to abd folds and groin area 0 09/18/2023 11/07/2023 oxyCODONE (ROXICODONE) 5 mg immediate release tabletIndications:Chr onic Pain/Nonacute Pain Indication: Chronic Pain/Nonacute Pain. 5 mg four times daily as needed (at least 4 hours apart) 42 tablet 0 10/17/2023 10/27/2023 oxyCODONE (ROXICODONE) 5 mg immediate release tabletIndications:Chr onic Pain/Nonacute Pain Indication: Chronic Pain/Nonacute Pain. 5 mg four times daily as needed (at least 4 hours apart) 42 tablet 0 10/27/2023 10/31/2023 potassium chloride (KLOR-CON M/KDUR) 20 mEq ER tablet Take 1 tablet (20 mEq total) by mouth 3 (three) times a day with meals. 0 10/14/2023 11/28/2023 predniSONE (DELTASONE) 10 mg tablet Take 10 mg by mouth daily. 0 09/18/2023 10/22/2023 VITAMIN C, ASCORBATE CALCIUM, ORAL Take 1,000 mg by mouth daily. 0 09/18/2023 10/27/2023 documented as of this encounter Plan of Treatment Not on file documented as of this encounter Visit Diagnoses Diagnosis Edema Localized documented in this encounter Care Teams Heat Welder Plastics Relationship Specialty Start Date End Date Osiris Otero APRN, C.N.P., R.N. [address] [place] [address] PCP - General Family Medicine 09/17/23 12/08/23 documented as of this encounter
--- OUTSIDE RECORDS SUMMARY | 2024-01-16 12:05 | XMS_ITS | Encounter Summary ---
Author Name Unknown Organization [facility] Address [address] [place] [address] Care Team Providers Care Music Assistant Name Role Phone Shanna Mars Murcia APRN.N.Tia., R.N. Primary Care Provider Encounter Details Date Type Department Care Team (Late st Contact Info) Description 10/19/2023 10:30 AM CONFERENCE CENTER COORDINATOR Ancillary Procedure Department of Emergency Medicine Social History Tobacco Use Types Packs/Day Years Used Date Smoking Tobacco: Never Smokeless Tobacco: Never Alcohol Use Standard Drinks/Week Comments Defer 0 (1 standard drink = 0.6 oz pur e alcohol) [facility] Utilities Answer Date Recorded In the past 12 months has e electric, gas, oil, or water [employer] threatened to shut off services in your [...] your living situation today? I have a [facility] place to live 10/19/2023 Sex and Gender Information Value Date Recorded Sex Assigned at Not on file Gender Identity Not on file Sexual Orientation Not on file documented as of this encounter Plan of Treatment Not on file documented as of this encounter Procedures Procedure Name Priority Date/Time Associated Diagnosis Comments EMERGENCY DEPARTMENT IMAGE EXAM Routine 10/19/2023 10:26 AM CONFERENCE CENTER COORDINATOR documented in this encounter Results * Anus-Emergency Department Image Exam (10/19/2023 10:26 AM CONFERENCE CENTER COORDINATOR) 10/19/2023 10:2 3 AM CONFERENCE CENTER COORDINATOR Narrative IIMS - 10/19/2023 10:26 AM CONFERENCE CENTER COORDINATOR This order has been created and auto-finalized to support the import of images acquired without order. The clinical documentation to support these images can be found on the encounter that produced images. Provider Not In System IMG NON RAD IMAGI NG PROCEDURES IIMS NA documented in this encounter Visit Diagnoses Not on filedocumented in this encounter Care Teams Music Assistant Relationship Specialty Start Date End Date Osiris Otero APRN, C.N.P., R.N. [address] [place] [phone] PCP - General Family Medicine 09/17/23 12/08/23 documented as of this encounter
--- OUTSIDE RECORDS SUMMARY | 2024-01-16 12:05 | XMS_ITS | Encounter Summary ---
Author Name Unknown Organization [facility] Address [address] [place] [address] Care Team Providers Care Bar Tender Name Role Phone Shanna Mars Murcia APRN.N.Tia., R.N. Primary Care Provider Encounter Details Date Type Department Care Team (Late st Contact Info) Description 10/19/2023 10:25 AM CORPORATE COMPLIANCE DIRECTOR Ancillary Procedure Department of Emergency Medicine Social History Tobacco Use Types Packs/Day Years Used Date Smoking Tobacco: Never Smokeless Tobacco: Never Alcohol Use Standard Drinks/Week Comments Defer 0 (1 standard drink = 0.6 oz pur e alcohol) [facility] Utilities Answer Date Recorded In the past 12 months has e electric, gas, oil, or water [employer] threatened to shut off services in your [...] your living situation today? I have a [facility] place to live 10/19/2023 Sex and Gender Information Value Date Recorded Sex Assigned at Not on file Gender Identity Not on file Sexual Orientation Not on file documented as of this encounter Plan of Treatment Not on file documented as of this encounter Procedures Procedure Name Priority Date/Time Associated Diagnosis Comments EMERGENCY DEPARTMENT IMAGE EXAM Routine 10/19/2023 10:25 AM CORPORATE COMPLIANCE DIRECTOR documented in this encounter Results * Anus-Emergency Department Image Exam (10/19/2023 10:25 AM CORPORATE COMPLIANCE DIRECTOR) 10/19/2023 10:2 3 AM CORPORATE COMPLIANCE DIRECTOR Narrative IIMS - 10/19/2023 10:26 AM CORPORATE COMPLIANCE DIRECTOR This order has been created and auto-finalized to support the import of images acquired without order. The clinical documentation to support these images can be found on the encounter that produced images. Provider Not In System IMG NON RAD IMAGI NG PROCEDURES IIMS NA documented in this encounter Visit Diagnoses Not on filedocumented in this encounter Care Teams Bar Tender Relationship Specialty Start Date End Date Osiris Otero APRN, C.N.P., R.N. [address] [place] [phone] PCP - General Family Medicine 09/17/23 12/08/23 documented as of this encounter
--- OUTSIDE RECORDS SUMMARY | 2024-01-16 12:05 | XMS_ITS | Encounter Summary ---
Author Name Unknown Organization [facility] Address [address] [place] [address] Care Team Providers Care Automatic Gluing Machine Operator Name Role Phone Osiris Otero APRN, C.N.Tia., R.N. Primary Care Provider Encounter Details Date Type Department Care Team (Late st Contact Info) Description 10/19/2023 9:50 AM GOLD BLOWER Ancillary Procedure Department of Emergency Medicine Social History Tobacco Use Types Packs/Day Years Used Date Smoking Tobacco: Never Smokeless Tobacco: Never Alcohol Use Standard Drinks/Week Comments Defer 0 (1 standard drink = 0.6 oz pur e alcohol) [facility] Utilities Answer Date Recorded In the past 12 months has e electric, gas, oil, or water [employer] threatened to shut off services in your [...] your living situation today? I have a [facility] place to live 10/19/2023 Sex and Gender Information Value Date Recorded Sex Assigned at Not on file Gender Identity Not on file Sexual Orientation Not on file documented as of this encounter Plan of Treatment Not on file documented as of this encounter Procedures Procedure Name Priority Date/Time Associated Diagnosis Comments EMERGENCY DEPARTMENT IMAGE EXAM Routine 10/19/2023 9:50 AM GOLD BLOWER documented in this encounter Results * Heel-Emergency Department Image Exam (10/19/2023 9:50 AM GOLD BLOWER) 10/19/2023 9:48 AM GOLD BLOWER Narrative IIMS - 10/19/2023 9:50 AM GOLD BLOWER This order has been created and auto-finalized [...] Osiris Otero APRN, C.N.P., R.N. [address] [place] [phone] PCP - General Family Medicine 09/17/23 12/08/23 documented as of this encounter
--- OUTSIDE RECORDS SUMMARY | 2024-01-16 12:05 | XMS_ITS | Encounter Summary ---
Author Name Unknown Organization [facility] Address [address] [place] [address] Care Team Providers Care Rubber Washer Name Role Phone Shanna Mars Murcia APRN.N.Tia., R.N. Primary Care Provider Encounter Details Date Type Department Care Team (Late st Contact Info) Description 10/19/2023 10:15 AM COMPRESSION MOLDING MACHINE OPERATOR Ancillary Procedure Department of Emergency Medicine Social History Tobacco Use Types Packs/Day Years Used Date Smoking Tobacco: Never Smokeless Tobacco: Never Alcohol Use Standard Drinks/Week Comments Defer 0 (1 standard drink = 0.6 oz pur e alcohol) [facility] Utilities Answer Date Recorded In the past 12 months has e electric, gas, oil, or water [employer] threatened to shut off services in your [...] your living situation today? I have a [facility] place to live 10/19/2023 Sex and Gender Information Value Date Recorded Sex Assigned at Not on file Gender Identity Not on file Sexual Orientation Not on file documented as of this encounter Plan of Treatment Not on file documented as of this encounter Procedures Procedure Name Priority Date/Time Associated Diagnosis Comments EMERGENCY DEPARTMENT IMAGE EXAM Routine 10/19/2023 10:09 AM COMPRESSION MOLDING MACHINE OPERATOR documented in this encounter Results * Coccyx-Emergency Department Image Exam (10/19/2023 10:09 AM COMPRESSION MOLDING MACHINE OPERATOR) 10/19/2023 10:0 7 AM COMPRESSION MOLDING MACHINE OPERATOR Narrative IIMS - 10/19/2023 10:09 AM COMPRESSION MOLDING MACHINE OPERATOR This order has been created and auto-finalized to support the import of images acquired without order. The clinical documentation to support these images can be found on the encounter that produced images. Provider Not In System IMG NON RAD IMAGI NG PROCEDURES IIMS NA documented in this encounter Visit Diagnoses Not on filedocumented in this encounter Care Teams Rubber Washer Relationship Specialty Start Date End Date Osiris Otero APRN, C.N.P., R.N. [address] [place] [phone] PCP - General Family Medicine 09/17/23 12/08/23 documented as of this encounter
--- OUTSIDE RECORDS SUMMARY | 2024-01-16 12:05 | XMS_ITS | Encounter Summary ---
Author Name Unknown Organization [facility] Address [address] [place] [address] Care Team Providers Care Tug Boat Captain Name Role Phone ShannaFransisca lopezOsirisMars Islas APRN.NJuan., R.N. Primary Care Provider Reason for Visit * Auth/Cert (Routine) Specialty Diagnoses / Procedures Referred By Contac t Referred To Contact Diagnoses Pneumonia pnuemoinia Procedures IP Referral ID Status Reason Start Date Expiration Date Visits Re quested Visits Authorized [id number] 1 1 Encounter Details Date Type Department Care Team (Latest Contact Info) Description 10/19/2023 2:09 AM HOT DOG VENDER - 10/27/2023 2:06 PM HOT DOG VENDER Hospital Encounter [facility], Second Floor [address] [place] [id number] Pancho Burr M.D. [address] [place] [phone] Williams Barber M.D. [address] [place] [address] Nicole Kaiser M.D. [facility] [place] [address] Camden Munoz M.D. 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 I have a [facility] place to live 10/19/2023 Sex and Gender Information Value Date Recorded Sex Assigned at Not on file Gender Identity Not on file Sexual Orientation Not on file documented as of this encounter Last Filed Vital Signs Vital Sign Reading Time Taken Comments Blood Pressure 142/70 10/27/2023 6:52 AM HOT DOG VENDER Pulse 86 10/27/2023 6:52 AM HOT DOG VENDER Temperature 36.3 ??C (97.3 ??F) 10/27/2023 6:52 AM CS T Respiratory Rate 16 10/27/2023 6:52 AM HOT DOG VENDER Oxygen Saturation 98% 10/27/2023 6:52 AM HOT DOG VENDER Inhaled Oxygen Concentration - - Weight 61 kg (134 lb 7.7 oz) 10/27/2023 5:22 AM HOT DOG VENDER Height 152 cm (4' 11.84) 10/19/2023 5:00 AM HOT DOG VENDER Body Mass Index 26.4 10/19/2023 5:00 AM HOT DOG VENDER documented in this encounter Discharge Summaries * Camden Munoz M.D. - 10/27/2023 11:50 AM CST DATE OF ADMISSION: 10/19/2023 DATE OF DISCHARGE: 10/22/2023 ADMITTING PHYSICIAN: Pancho Burr M.D. DISCHARGING PHYSICIAN: Camden Munoz M.D. PRIMARY CARE PHYSICIAN: Osiris Otero APRN, C.N.P., R.N. 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 ([facility]) #14 Obstructive Sleep Apnea Adult #15 Infection Urinary Catheter Indwelling Initial (HCC) #16 Do Not Resuscitate Status #17 Pneumonia CONSULTS: IP CONSULT TO CARE MANAGEMENT IP ECONSULT TO INFECTIOUS DISEASE GENERAL IP ECONSULT TO INFECTIOUS DISEASE GENERAL DIAGNOSTICS LABS: Results from last 7 days Lab Units 10/27/23 0648 10/22/23 0619 10/21/23 0632 WBC x10(9)/L 21.8* 13.9* 12.7* HEMOGLOBIN g/dL 14.4 12.7 12.0 HEMATOCRIT % 46.5* 41.2 39.7 PLATELETS AUTO x10(9)/L 293 273 260 SODIUM P mmol/L 139 -- 137 CHLORIDE P mmol/L 98 -- 97* BUN P mg/dL 44* -- 36* CREATININE mg/dL 0.35* -- 0.37* CALCIUM P mg/dL 10.1 -- 9.1 MICRO: Results for orders placed or performed during the hospital encounter of 10/19/23 (from the past 336hour(s)) MRSA PCR, Nasal Specimen: Nares; Swab Result Value MRSA Screen, Nasal by PCR Positive (A) Semi-Urgent This is a semi-urgent result (FLEMING) IMAGING: DX Chest Portable 1 View Result Date: 10/27/2023 Impression: No acute infiltrates. There is of bibasilar discoid atelectasis as described. DX Chest Portable 1 View Result Date: 10/22/2023 Impression: Decreasing infiltrate in the RIGHT lower lobe since October 18. PENDING LABS: Pending Labs None PROCEDURE PERFORMED THIS ADMISSION: DISCHARGE MEDICATIONS: Discharge Medications TAKE these medications acetaminophen 500 mg tablet Commonly known as: TYLENOL Take 2 tablets (1,000 mg total) by mouth 3 (three) times a day. ascorbic acid (vitamin C) 1,000 mg tablet Commonly known as: VITAMIN C Take 1 tablet (1,000 mg total) by mouth daily. benzonatate 100 mg capsule Commonly known as: TESSALON PERLES Take 1 capsule (100 mg total) by mouth 3 (three) times a day as needed for cough. bisacodyL 10 mg suppository Commonly known as: DULCOLAX Insert 10 mg into the rectum 2 (two) times a day as needed for constipation. carboxymethylcellulose 0.5 % ophthalmic solution Commonly known as: REFRESH PLUS Administer 1 drop into both eyes 3 (three) times a day as needed for dry eyes. furosemide 40 mg tablet Commonly known as: LASIX Take 1 tablet (40 mg total) by mouth daily. gabapentin 300 mg capsule Commonly known as: NEURONTIN Take 300 mg by mouth 3 (three) times a day. ipratropium 0.02 % nebulizer solution Commonly known as: ATROVENT Inhale 2.5 mL (500 mcg total) by nebulization 3 (three) times a day. Lactobacillus acidophilus 100 million cell capsule Take 1 capsule by mouth daily. In evening loperamide 2 mg capsule Commonly known as: IMODIUM A-D Take 2 mg by mouth 3 (three) times a day before meals. metoprolol succinate 50 mg 24 hr tablet Commonly known as: TOPROL-XL Take 1 tablet (50 mg total) by mouth daily. Do not crush or chew. metoprolol tartrate 50 mg tablet Commonly known as: LOPRESSOR Take 50 mg by mouth daily. miconazole 2 % powder Commonly known as: MICATIN Apply 1 Application topically 2 (two) times a day. Apply to abdominal and groin folds. multivitamin tablet Take 1 tablet by mouth daily. Generic drug: multivitamin nystatin 100,000 unit/gram powder Commonly known as: NYSTOP Apply 1 Application topically 2 (two) times a day. Apply to abd folds and groin area omeprazole [address] capsule Commonly known as: PriLOSEC Take 20 mg by mouth 2 (two) times a day before breakfast and dinner. oxyCODONE 5 mg immediate release tablet Commonly known as: ROXICODONE Indication: Chronic Pain/Nonacute Pain. 5 mg four times daily as needed (at least 4 hours apart) potassium chloride 20 mEq ER tablet Commonly known as: KLOR-CON M/KDUR Take 1 tablet (20 mEq total) by mouth 3 (three) times a day with meals. predniSONE 10 mg tablet Commonly known as: DELTASONE Take 1 tablet (10 mg total) by mouth daily. Resume usual dose of prednisone 10 mg daily on 10/27/23 triamcinolone 0.1 % ointment Commonly known as: KENALOG Apply 1 Application topically 2 (two) times a day as needed for rash. VITAMIN C (ASCORBATE CALCIUM) ORAL Take 1,000 mg by mouth daily. zinc sulfate 220 (50 mg zinc) capsule Commonly known as: ZINCATE Take 100 mg by mouth daily. DISCHARGE DISPOSITION: To [facility] CONDITION AT DISCHARGE: Vitally stable with improved symptoms. FOLLOWUP RECOMMENDATIONS: For appointment details refer to your Patient Appointment Guide. Refer to the After Visit Summary for this Admission. 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 This patient underwent debridement of a perirectal abscess at the [facility] then discharged to a prison in [place]. She reported that she spent about a month there and then developed a respiratory infection which was treated with 5 days of levofloxacin. The patient presented to the emergency room shortly after completing her levofloxacin course, on 10/18/23, with fevers, cough, shortness breath and hypoxia. With no room locally for the patient she was transferred to [place] for acute management. At our facility the patient has been treated with Rocephin and doxycycline. MRSA swab returned positive, but Infectious Disease eConsult was performed, with recommendations not to add vancomycin. Thepatient had a significant elevation in her CRP, a little above 53 at admission. With antibiotics, she was able to wean off of supplemental oxygen and her CRP on 10/22 had dropped down to 12.0. White blood cell count was noted to have been chronically elevated despite clinical and other laboratory evidence suggesting improvement in her infection. It was felt that the patient's elevated CRP was likely secondary to her ongoing issues with her chronic wounds. At the recommendations of our Infectious Disease cosmetic consultant, the patient was converted to oral Augmentin and doxycycline. It was noted thatthe patient had a rash listed as a reaction to piperacillin. On further discussions with the patient this history is questionable at best, and the patient confirms that she has been on amoxicillin, Augmentin and other penicillin-related antibiotics in the recent past with no evidence of allergies. With regards to her chronic wounds, we continued with wound VAC therapy to the chronic right buttock wound, which appeared healthy, 3 cm in diameter and 4 cm in depth with healthy granulation tissue.The perirectal abscess was noted to have Seton in place, it appeared to track proximally 6 cm. No feculent material was noted. Not having calcium alginate at our facility, Aquacel was used in its place as a one-to-one substitution. The patient's wounds were reviewed with our wound care certified physical therapist who thought that wound treatment orders at the patient's SNF in [place] were adequate. No changes other than the therapeutic substitutions at our facility were implemented. Pain continued to be controlled with oxycodone. Given the patient's chronic use of prednisone, the patient stress dosed and then placed on a prednisone taper. She received 30 mg for the 1st time on 10/23/23 and will have her dose reduced by 10 mg every other day until she is back down to her 10 mg daily dose on 10/28. With the patient weaning off of supplemental oxygen and wounds appearing uninfected with appropriate orders, and with patient clinically improved, we elected to discharge the patient back to her nursing home facility on 10/23/23. Unfortunately, though her nursing home facility received regular updates on the plan to discharge on 10/23, they fail to notify the patient's insurance to get acceptance for her return and therefore refused to accept the patient on 10/23. Discharge was able to be arranged on 10/27/2023 Throughout the patient's hospital stay she would [...] continue, would suggest further evaluation with pulmonology. ADMINISTRATIVE BILLING TIME: Total time spent 35 minutes, more than 30 minutes spent on counseling and coordination of care. DOG VENDER documented in this encounter Discharge Instructions * Attachments The following attachments cannot be sent through Care Everywhere. * Pressure Relief Maneuvers (Sinhala) * Chronic Pain Cycles (Sinhala) documented in this encounter Medications at Time of Discharge [...] 10/14/2023 11/28/2023 documented as of this encounter Progress Notes * Mallika Peña L.I.C.S.W. - 10/27/2023 11:52 AM CST Images from the original note were not included. SUBJECTIVE Social work following for discharge plans. Spoke with patient via [employer] during bedside team rounding. Social work received insurance authorization for patient to return to [facility]. Patient shares that her niece will be able to transport around 1 pm. 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) Chronic Diastolic (Congestive) Heart Failure (HCC) Unspecified Open Wound Right Buttock Initial Pain Low Back Chronic Other Adrenocortical Insufficiency (HCC) Other Acidosis Osteoporosis Neurogenic Bladder Edema Localized Diarrhea Benign Neoplasm Colon Arthritis Rheumatoid (HCC) Anemia Hypertension Essential Primary Corticosteroid Treatment Snf Systemic Paraplegia (HCC) Voice And Resonance Disorder Acute Respiratory Failure With Hypoxia (HCC) Abnormal Urinalysis Fever Of Unknown Origin Pneumonitis Due To Inhalation Of Food And Vomit (HCC) 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) Obstructive Sleep Apnea Adult Infection Urinary Catheter Indwelling Initial (HCC) Do Not Resuscitate Status Pneumonia ASSESSMENT / PLAN ASSESSMENT Patient not formally assessed INTERVENTIONS Received insurance auth through [facility] Coordinated patient's return with [facility] Destination - Admitted Since 10/19/2023 Service Provider Request Status Selected Services Address Phone Fax Patient Preferred [facility] ACO Selected [facility] [address] [place] [address] [phone] -- PLAN Patient will return to [facility] today at 1pm. Niece will transport Amadou Blackmon 10/27/23 DOG VENDER * Nicole Kaiser M.D. - 10/26/2023 10:38 AM CST SUBJECTIVE Interval History: No acute events. Tolerated VAC change well yesterday. I have reviewed the current medication list. OBJECTIVE Admission Weight: 62.2 kg Current Weight: 61.8 kg VITAL SIGNS Weight: 61.8 kg, BMI (Calculated): 26.7 kg/m??, Blood Pressure: 146/70, Heart Rate: 87, Pulse Rate:87, Resp Rate: 16, Temperature: 36 ??C, SpO2: 94 % I/O last 3 completed shifts: In: 890 [P.O.:890] Out: 2300 [Urine:2300] No intake/output data recorded. PHYSICAL EXAM General appearance: alert, cooperative, and no distress Lungs: clear to auscultation bilaterally Heart: regular rate and rhythm, S1, S2 normal, no murmur, click, rub or gallop Abdomen: soft, non-tender; bowel sounds normal; no masses, no organomegaly Extremities: Not examined, currently in blue heel protectors Skin: Skin color, texture, turgor normal. No rashes or lesions. Neurologic: Alert and oriented X 3 DIAGNOSTICS Lab results last 24 hours: No results found for this or any previous visit (from the past 24 hour(s)). 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 This patient spent about 3 months in the [facility] for management and de bridement of a perirectal abscess, then discharge to a prison in [place] where she spent about a month before developing a respiratory infection treated with 5 days of levofloxacin. The patient presented to the emergency room shortly after completing her course, on 10/18/23, with fevers, cough, shortness breath and hypoxia. With no room locally for the patient [place] #1 Fever Of Unknown Origin #2 Acute Respiratory Failure With Hypoxia ([facility]) #3 Aspiration Pneumonia, Abnormal Urinalysis, Neurogenic Bladder, Chronic Cristobal Catheter -- Positive MRSA nasal PCR test. Appreciate ID eConsult notes recommending ceftriaxone and doxycycline for a total of 5 days with conversion to Augmentin and doxycycline. -given recent previous recurrence of respiratory infection following 5 days of treatment with levofloxacin, will complete 7 day course of antibiotics Last dose of antibiotics 10/25/23 - repeat CXR 10/23 shows improvement in her right lower lobe pneumonia (ordered due to chronic leukocytosis) -- Continue aspiration precautions. Monitor for evidence of on-going aspiration. -recommend ANNEALING OVEN OPERATOR evaluation again upon return to her nursing home facility -- DuoNebs makes her jittery, so switched to Atrovent nebs. (reduced to 3 times daily secondary to PSVT) -- Appropriate cough management -- Fall/Aspiration precautions #4 Chronic Diastolic (Congestive) Heart Failure ([facility]) #5 Atrial Fibrillation Unspecified ([facility]) #6 Hypertension Essential Primary, Severe HUI -- Continue bedtime BiPAP therapy -- Per patient, considered resolved by [place] PCP. Hence, no anticoagulation. Apparently, the metoprolol succinate is for hypertension. - patient reports that the increase in Lasix prior to admission here has caused her to feel very dry. Her weight has been stable since admission. We will trial a decrease back to her home dose of Lasix 40 mg daily. When she discharges to her facility she will need close monitoring of her weight -- Monitor Intake/output, Labs, Vitals, Daily weights # PSVT - no recurrence of PSVT that we have been notified of. 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 -- Q2H repositioning to offload areas at risk for pressure ulcers as appropriate. -- Appreciate assistance of PT wound staff. -- Monitor wounds and record photos in the chart as appropriate. -- Follow-up as recommended by [place] providers. -noted that we do not have the calcium alginate that was being used to pack the patient's wound while she was at the [facility]. Will use Aquacel in its place. We do not have Vashe either, so using normal saline in its place for now #12 Other Adrenocortical Insufficiency ([facility]) #13 Arthritis Rheumatoid ([facility]) #14 Corticosteroid Treatment Dolphin Trainer Systemic -- Continue prednisone taper back down to chronic prednisone 10 mg daily - for stress steroids dosing given suspected pneumonia. Current dose is 40mg daily. Will be back on chronic 10mg dose on 10/28. -- Continue management of chronic medical issues. Diet: 2000 mg sodium cardiovascular diet Prophylaxis: SCDs only Code Status: DNR/DNI Dispo: Planning on 10/25 D/C back to [facility] once final insurance authorization is received. Patient reports her niece can transport her, she has a wheelchair van. Electronically signed by: Nicole Kaiser M.D. 10/26/23 10:38 AM HOT DOG VENDER DOG VENDER * Nicole Kaiser M.D. - 10/25/2023 9:26 AM CST SUBJECTIVE Interval History: No acute events. Reports she is feeling better overall. Pain is at baseline with wound cares. She has feeling a little constipated and is interested in a suppository. She will get her wound VAC changed today. I have reviewed the current medication list. OBJECTIVE Admission Weight: 62.2 kg Current Weight: 61 kg VITAL SIGNS Weight: 61 kg, BMI (Calculated): 26.4 kg/m??, Blood Pressure: 127/64, Heart Rate: 92, Pulse Rate: 92, Resp Rate: 18, Temperature: 36 ??C, SpO2: 100 % I/O last 3 completed shifts: In: 1260 [P.O.:1260] Out: 2200 [Urine:2200] No intake/output data recorded. PHYSICAL EXAM General appearance: alert, cooperative, and no distress Lungs: clear to auscultation bilaterally Heart: regular rate and rhythm, S1, S2 normal, no murmur, click, rub or gallop Abdomen: soft, non-tender; bowel sounds normal; no masses, no organomegaly Extremities: Not examined, currently in blue heel protectors Skin: Skin color, texture, turgor normal. No rashes or lesions. Neurologic: Alert and oriented X 3 DIAGNOSTICS Lab results last 24 hours: No results found for this or any previous visit (from the past 24 hour(s)). ASSESSMENT / PLAN #1 Chronic Diastolic (Congestive) Heart Failure ([facility]) #2 Unspecified Open Wound Right Buttock Initial #3 Other Adrenocortical Insufficiency ([facility]) #4 Neurogenic Bladder #5 Arthritis Rheumatoid ([facility]) #6 Hypertension Essential Primary #7 Corticosteroid Treatment Dolphin Trainer Systemic #8 Paraplegia ([facility]) #9 Acute Respiratory Failure With Hypoxia ([facility]) #10 Abnormal Urinalysis #11 Fever Of Unknown Origin #12 Pneumonitis Due To Inhalation Of Food And Vomit ([facility]) #13 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 This patient spent about 3 months in the [facility] for management and de bridement of a perirectal abscess, then discharge to a prison in [place] where she spent about a month before developing a respiratory infection treated with 5 days of levofloxacin. The patient presented to the emergency room shortly after completing her course, on 10/18/23, with fevers, cough, shortness breath and hypoxia. With no room locally for the [place] #1 Fever Of Unknown Origin #2 Acute Respiratory Failure With Hypoxia (HCC) #3 Aspiration Pneumonia, Abnormal Urinalysis, Neurogenic Bladder, Chronic Cristobal Catheter -- Positive MRSA nasal PCR test. Appreciate ID eConsult notes recommending ceftriaxone and doxycycline for a total of 5 days with conversion to Augmentin and doxycycline. -given recent previous recurrence of respiratory infection following 5 days of treatment with levofloxacin, will complete 7 day course of antibiotics Last dose of antibiotics today 10/25/23 - repeat CXR 10/23 shows improvement in her right lower lobe pneumonia (ordered due to chronic leukocytosis) -- Continue aspiration precautions. Monitor for evidence of on-going aspiration. -recommend ANNEALING OVEN OPERATOR evaluation again upon return to her nursing home facility -- DuoNebs makes her jittery, so switched to Atrovent nebs. (reduced to 3 times daily secondary to PSVT) -- Appropriate cough management -- Fall/Aspiration precautions #4 Chronic Diastolic (Congestive) Heart Failure (HCC) #5 Atrial Fibrillation Unspecified (HCC) #6 Hypertension Essential Primary, Severe HUI -- Continue bedtime BiPAP therapy -- Per patient, considered resolved by [place] PCP. Hence, no anticoagulation. Apparently, the metoprolol succinate is for hypertension. - patient reports that the increase in Lasix prior to admission here has caused her to feel very dry. Her weight has been stable since admission. We will trial a decrease back to her home dose of Lasix 40 mg daily. When she discharges to her facility she will need close monitoring of her weight -- Monitor for any evidence of acute heart failure. -- Monitor renal function and electrolytes and address abnormalities. -- Monitor Intake/output, Labs, Vitals, Daily weights # PSVT - no recurrence of PSVT that we have been notified of. 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 -- Q2H repositioning to offload areas at risk for pressure ulcers as appropriate. -- Appreciate assistance of PT wound staff. -- Monitor wounds and record photos in the chart as appropriate. -- Follow-up as recommended by [place] providers. -noted that we do not have the calcium alginate that was being used to pack the patient's wound while she was at the SNF. Will use Aquacel in its place. 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 Current dose is 40mg daily. Will be back on chronic 10mg dose on 10/28. -- Continue management of chronic medical issues. Diet: 2000 mg sodium cardiovascular diet Prophylaxis: SCDs only Code Status: DNR/DNI Dispo: 10/25 D/C back to [facility] Alessandra Kasi in [place]. Patient reports her niece can transport her, she has a wheelchair van. Electronically signed by: Nicole Kaiser M.D. 10/25/23 9:26 AM HOT DOG VENDER DOG VENDER * Nicole Kaiser M.D. - 10/24/2023 10:43 AM CST SUBJECTIVE Interval History: Patient reports she is feeling at her baseline. She has some pain with wound cares which is stable. She has no new symptoms of shortness a breath, chest pain. She completed oxygen studies overnight that showed no O2 requirement with her BiPAP. She is also on room air during the day. I have reviewed the current medication list. OBJECTIVE Admission Weight: 62.2 kg Current Weight: 62 kg VITAL SIGNS Weight: 62 kg, BMI (Calculated): 26.8 kg/m??, Blood Pressure: 134/59, Heart Rate: 90, Pulse Rate: 90, Resp Rate: 18, Temperature: (!) 35.8 ??C, SpO2: 96 % I/O last 3 completed shifts: In: 1420 [P.O.:1420] Out: 1400 [Urine:1400] I/O this shift: In: 420 [P.O.:420] Out: - PHYSICAL EXAM General appearance: alert, cooperative, and no distress Lungs: clear to auscultation bilaterally Heart: regular rate and rhythm, S1, S2 normal, no murmur, click, rub or gallop Abdomen: soft, non-tender; bowel sounds normal; no masses, no organomegaly Extremities: Not examined, currently in blue heel protectors Skin: Skin color, texture, turgor normal. No rashes or lesions. Neurologic: Alert and oriented X 3 DIAGNOSTICS Lab results last 24 hours: No results found for this or any previous visit (from the past 24 hour(s)). ASSESSMENT / PLAN #1 Chronic Diastolic (Congestive) Heart Failure (HCC) #2 Unspecified Open Wound Right Buttock Initial #3 Other Adrenocortical Insufficiency (HCC) #4 Neurogenic Bladder #5 Arthritis Rheumatoid ([facility]) #6 Hypertension Essential Primary #7 Corticosteroid Treatment Snf Systemic #8 Paraplegia ([facility]) #9 Acute Respiratory Failure With Hypoxia ([facility]) #10 Abnormal Urinalysis #11 Fever Of Unknown Origin #12 Pneumonitis Due To Inhalation Of Food And Vomit ([facility]) #13 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 This patient spent about 3 months in the [facility] for management and de bridement of a perirectal abscess, then discharge to a prison in [place] where she spent about a month before developing a respiratory infection treated with 5 days of levofloxacin. The patient presented to the emergency room shortly after completing her course, on 10/18/23, with fevers, cough, shortness breath and hypoxia. With [place] #1 Fever Of Unknown Origin #2 Acute Respiratory Failure With Hypoxia ([facility]) #3 Aspiration Pneumonia, Abnormal Urinalysis, Neurogenic Bladder, Chronic Cristobal Catheter -- Positive MRSA nasal PCR test. Appreciate ID eConsult notes recommending ceftriaxone and doxycycline for a total of 5 days with conversion to Augmentin and doxycycline. -given recent previous recurrence of respiratory infection following 5 days of treatment with levofloxacin, will complete 7 day course of treatment this time. Last dose of antibiotics would be on 10/25/23 - repeat CXR yesterday shows improvement in her right lower lobe pneumonia (ordered due to chronic leukocytosis) -- Continue aspiration precautions. Monitor for evidence of on-going aspiration. -recommend ANNEALING OVEN OPERATOR evaluation again upon return to her nursing home facility -- DuoNebs makes her jittery, so switched to Atrovent nebs. (reduced to 3 times daily secondary to PSVT) -- Appropriate cough management -- Fall/Aspiration precautions #4 Chronic Diastolic (Congestive) Heart Failure (HCC) #5 Atrial Fibrillation Unspecified ([facility]) #6 Hypertension Essential Primary, Severe HUI -- Continue bedtime BiPAP therapy -- Per patient, considered resolved by [place] PCP. Hence, no anticoagulation. Apparently, the metoprolol succinate is for hypertension. - patient reports that the increase in Lasix prior to admission here has caused her to feel very dry. Her weight has been stable since admission. We will trial a decrease back to her home dose of Lasix 40 mg daily. When she discharges to her facility she will need close monitoring of her weight -- Monitor for any evidence of acute heart failure. -- Monitor renal function and electrolytes and address abnormalities. -- Monitor Intake/output, Labs, Vitals, Daily weights # PSVT - no recurrence of PSVT that we have been notified of. 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 -- Q2H repositioning to offload areas at risk for pressure ulcers as appropriate. -- Appreciate assistance of PT wound staff. -- Monitor wounds and record photos in the chart as appropriate. -- Follow-up as recommended by [place] providers. -noted that we do not have the calcium alginate that was being used to pack the patient's wound while she was at the SNF. Will use Aquacel in its place. We do not have Vashe either, so using normal saline in its place for now #12 Other Adrenocortical Insufficiency ([facility]) #13 Arthritis Rheumatoid (HCC) #14 Corticosteroid Treatment Dolphin Trainer Systemic -- Continue prednisone taper back down to chronic prednisone 10 mg daily - for stress steroids dosing given suspected pneumonia. Current dose is 40mg daily. Will be back on chronic 10mg dose on 10/28. -- Continue management of chronic medical issues. Diet: 2000 mg sodium cardiovascular diet Prophylaxis: SCDs only Code Status: DNR/DNI Dispo: Awaiting insurance approval for D/C back to [facility] in [place]. Patient reports her niece can transport her, she has a wheelchair van. However she lives about 1-1/2 hours away from here. Electronically signed by: Nicole Kaiser M.D. 10/24/23 10:57 AM HOT DOG VENDER DOG VENDER * Mallika Peña L.I.C.S.WRoberto - 10/23/2023 4:28 PM CST SUBJECTIVE Social work following for discharge plans. Patient had been set to discharge back to [facility] today but was updated that she still needed insurance auth. Auth is still pending at this time. 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) Chronic Diastolic (Congestive) Heart Failure (HCC) Unspecified Open Wound Right Buttock Initial Pain Low Back Chronic Other Adrenocortical Insufficiency (HCC) Other Acidosis Osteoporosis Neurogenic Bladder Edema Localized Diarrhea Benign Neoplasm Colon Arthritis Rheumatoid (HCC) Anemia Hypertension Essential Primary Corticosteroid Treatment Dolphin Trainer Systemic Paraplegia (HCC) Voice And Resonance Disorder Acute Respiratory Failure With Hypoxia (HCC) Abnormal Urinalysis Fever Of Unknown Origin Pneumonitis Due To Inhalation Of Food And Vomit (HCC) 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) Obstructive Sleep Apnea Adult Infection Urinary Catheter Indwelling Initial (HCC) Do Not Resuscitate Status Pneumonia ASSESSMENT / PLAN ASSESSMENT Patient not assessed PLAN Patient will return to [facility] pending insurance authorization Hernan BlackmonSRobertoWRoberto 10/23/23 DOG VENDER * Williams Barber M.D. 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 This patient spent about 3 months in the [facility] for management and de bridement of a perirectal abscess, then discharge to a prison in [place] where she spent about a month before developing a respiratory infection treated with 5 days of levofloxacin. The patient presented to the emergency room shortly after completing her course, on 10/18/23, with fevers, cough, shortness breath and hypoxia. With no [place] locally [place] Interval History: Today the patient is overall doing well. She continues to have intermittent episodes of hypoxia with SpO2 going down as low as about 82%. With even minor repositioning and to or thedeep breaths, oxygen levels returned to around 95% without the need for adding supplemental oxygen.Overnight last night the patient was evaluated for overnight oxygen needs and while wearing her BiPAP with no supplemental oxygen, SpO2 was ranging between 95-100% on room air. Medications Scheduled Medication Ordered Dose/Rate, Route, Frequency Last Action acetaminophen tablet 1,000 mg (TYLENOL) 1,000 mg, oral, TID Given, 1,000 mg at 10/22 821 amoxicillin-pot clavulanate 875-125 mg per tablet 1 tablet (AUGMENTIN) 1 tablet, oral, BID with meals Ordered ascorbic acid (vitamin C) tablet 1,000 mg (VITAMIN C) 1,000 mg, oral, Daily Given, 1,000 mg at 10/22 822 cefTRIAXone injection 2 g (ROCEPHIN) 2 g, IV, Daily at bedtime Given, 2 g at 10/21 2027 doxycycline monohydrate tablet 100 mg (ADOXA) 100 mg, oral, BID before breakfast and dinner Given, 100 mg at 10/22 616 furosemide tablet 50 mg (LASIX) 50 mg, oral, BID Given, 50 mg at 10/22 822 gabapentin capsule 300 mg (NEURONTIN) 300 mg, oral, TID Given, 300 mg at 10/22 821 ipratropium 0.02 % nebulizer solution 500 mcg (ATROVENT) 0.5 mg, nebu, TID Given, 500 mcg at 10/22 616 metoprolol succinate 24 hr tablet 50 mg (TOPROL-XL) 50 mg, oral, Daily Given, 50 mg at 10/22 822 miconazole 2 % powder 1 Application (MICATIN) 1 Application, top, BID Given, 1 Application at 10/[address] tablet 40 mg (PROTONIX) 40 mg, oral, BID before breakfast and dinner Given, 40 mg at 10/22 616 pediatric dcwaleuyxgku-onwx-nyjjuvjk chewable tablet 1 tablet (FLINTSTONES COMPLETE) 1 tablet, oral, Daily Given, 1 tablet at 10/22 822 potassium chloride ER tablet 20 mEq (KLORCON/K-TAB) 20 mEq, oral, TID with meals Given, 20 mEq at 10/22 743 predniSONE tablet 10 mg (DELTASONE) 10 mg, oral, Daily Ordered predniSONE tablet 20 mg (DELTASONE) (Followed by Linked Group #1) 20 mg, oral, Daily Ordered predniSONE tablet 30 mg (DELTASONE) (Followed by Linked Group #1) 30 mg, oral, Daily Ordered zinc sulfate capsule 220 mg (ZINCATE) 220 mg, oral, Daily with breakfast Given, 220 mg at 10/22 743 PRN Medication Ordered Dose/Rate, Route, Frequency Last Action benzonatate capsule 100 mg (TESSALON PERLES) 100 mg, oral, TID PRN Ordered bisacodyL suppository 10 mg (DULCOLAX) 10 mg, rectal, BID PRN Ordered loperamide capsule 2 mg (IMODIUM A-D) 2 mg, oral, 4x Daily PRN Ordered oxyCODONE IR tablet 5 mg (ROXICODONE) 5 mg, oral, Q4H PRN Given, 5 mg at 10/22 750 OBJECTIVE Admission Weight: 62.2 kg Current Weight: 62.2 kg VITAL SIGNS Blood Pressure: 156/81, Heart Rate: 75, Pulse Rate: 73, Resp Rate: 24, Temperature: 36.1 ??C, SpO2:94 % PHYSICAL EXAM General: The patient is alert, oriented and in no acute distress Neurologic: Patient with dysphonia, also paraplegia Cardiovascular: Regular rate and rhythm Respiratory: lungs are clear to auscultation bilaterally with no wheezing DIAGNOSTICS Lab results last 24 hours: Recent Results (from the past 24 hour(s)) CBC with Differential, Blood Collection Time: 10/22/23 6:19 AM Result Value Hemoglobin 12.7 Hematocrit 41.2 Erythrocytes 4.85 MCV 84.9 RBC Distrib Width 19.3 (H) Platelet Count 273 Leukocytes 13.9 (H) Neutrophils 9.71 (H) Lymphocytes 2.90 Monocytes 1.21 (H) Eosinophils 0.00 (L) Basophils 0.03 CRP (C-Reactive Protein) Collection Time: 10/22/23 6:19 AM Result Value C-Reactive Protein (CRP), P 12.0 (H) Morphology Evaluation Collection Time: 10/22/23 6:19 AM Result Value RBC Morphology See Specific Findings PLT Morphology Normal PLT Estimate Adequate Anisocytosis Slight (A) Microcytosis Slight (A) ASSESSMENT / PLAN #1 Chronic Diastolic (Congestive) Heart Failure ([facility]) #2 Unspecified Open Wound Right Buttock Initial #3 Other Adrenocortical Insufficiency ([facility]) #4 Neurogenic Bladder #5 Arthritis Rheumatoid ([facility]) #6 Hypertension Essential Primary #7 Corticosteroid Treatment Snf Systemic #8 Paraplegia ([facility]) #9 Acute Respiratory Failure With Hypoxia ([facility]) #10 Abnormal Urinalysis #11 Fever Of Unknown Origin #12 Pneumonitis Due To Inhalation Of Food And Vomit ([facility]) #13 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 ([facility]) #14 Obstructive Sleep Apnea Adult #15 Infection Urinary Catheter Indwelling Initial ([facility]) #16 Do Not Resuscitate Status #17 Pneumonia #1 Fever Of Unknown Origin #2 Acute Respiratory Failure With Hypoxia ([facility]) #3 Aspiration Pneumonia, Abnormal Urinalysis, Neurogenic Bladder, Chronic Cristobal Catheter -- Although she passed the bed-side nursing swallow assessment, aspiration remains a concern. She wants to eat at this time - so we are using aspiration precautions. Video swallow and esophagram are ordered, but are not available at our site. Patient has been evaluated previously and works with a speech therapist at her SNF, and reports no change from baseline -- Continue ceftriaxone and doxycycline day 3/7 today. Follow-up blood/urine cultures. -- Positive MRSA nasal PCR test. Appreciate ID eConsult notes from today recommending ceftriaxone and doxycycline for a total of 5 days. No additional MRSA coverage is recommended. Augmentin and doxycycline were recommended as oral options. We converted to Augmentin doxycycline on 08/22. I did confirm with the patient that she is received penicillin based antibiotics including both Augmentin and amoxicillin as an outpatient and has not had any allergic response to those medications. She does have piperacillin listed as causing a rash -given recent previous recurrence of respiratory infection following 5 days of treatment with levofloxacin, recommend a full 7 day course of treatment this time. Last dose of antibiotics would be of 10/25/23 -Suspect elevation in white blood cell count is chronic and related to her chronic wounds, but willgo ahead and get a chest x-ray today. -- Continue aspiration precautions. Monitor for evidence of on-going aspiration. -recommend ANNEALING OVEN OPERATOR evaluation again upon return to her nursing home facility -- DuStaceybs makes her jittery, so switched to Atrovent nebs. (reduced to 3 times daily secondary to PSVT) -- Consider sputum testing. -- Appropriate cough management -- Fall/Aspiration precautions -- Appreciate the assistance of our rehab staff. #4 Chronic Diastolic (Congestive) Heart Failure (HCC) #5 Atrial Fibrillation Unspecified (HCC) #6 Hypertension Essential Primary, Severe HUI -- Continue bedtime BiPAP therapy -- Per patient, considered resolved by [place] PCP. Hence, no anticoagulation. Apparently, the metoprolol succinate is for hypertension. Review requested medical records from [facility] to confirm - when available. -- Monitor for any evidence of acute heart failure. -- Monitor renal function and electrolytes and address abnormalities. -- Monitor Intake/output, Labs, Vitals, Daily weights # PSVT - no recurrence of PSVT that we have been notified of. 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 -- Q2H repositioning to offload areas at risk for pressure ulcers as appropriate. -- Appreciate assistance of PT wound staff. -- Monitor wounds and record photos in the chart as appropriate. -- Follow-up as recommended by [place] providers. -noted that we do not have the calcium alginate that was being used to pack the patient's wound while she was at the SNF. Will use Aquacel in its place. We do not have Vashe either, so using normal saline in its place for now - no real change in size of wounds today. No evidence of acute infection. No evidence of feculent material in the perirectal wound. Continue current wound cares with the above substitutions. Appreciate the assistance of Wound Care team. #12 Other Adrenocortical Insufficiency (HCC) #13 Arthritis Rheumatoid (HCC) #14 Corticosteroid Treatment Snf Systemic -- Use prednisone taper back down to chronic prednisone 10 mg daily - for stress steroids dosing given suspected pneumonia. Current dose is 40mg daily. Will be back on chronic 10mg dose on 10/28. -- Continue management of chronic medical issues. Diet: 2000 mg sodium cardiovascular diet Prophylaxis: SCDs only Code Status: DNR/DNI Dispo: We had been planning a discharge back to the patient's nursing home facility with a tentative date of , 10/23/23. Appreciate our addiction social worker coordinating with the nursing home facility. Unfortunately today our addiction social worker reports that the nursing home facility neglected to submit paperwork and obtain approval from the patient's insurance to be readmitted today. Her nursing home facility declines to take the patient back if they do not have approval from insurance. This unfortunately looks like it is going to delay the patient's discharge from our facility until tomorrow. DOG VENDER * Elvi Anderson, Jacklyn., R.Ph. - 10/23/2023 9:39 AM CST Pharmacist Progress Note Reason for admission: Pneumonia PMH: SNF resident, paraplegia, rheumatoid arthritis, diastolic heart failure OBJECTIVE Home medications: Held: n/a Changed: n/a Prophylaxis: pantoprazole (home PPI), SCDs ASSESSMENT / PLAN Pneumonia Completed 5 days of levofloxacin a few days prior to admission Antibiotics Augmentin (10/22 - ) Ceftriaxone (10/19 - 10/21) IV access lost on 10/22 AM Cefepime (10/18 - 10/19) Doxycycline(10/18 - 10/23) Changed to oral per protocol on 10/20 ID plan recommended 5 day course, hospitalist note states 7 day course, will clarify and recommend stop date on Augmentin Steroids Increased for stress dosing given long-term corticosteroid use Taper (10/20 - 10/27) then resume 10 mg daily dose Note glucose increased this AM to 162, no intervention needed at this time as <180, but recommend to continue to follow while on increased steroid doses WBC and fever curve are improving CHF Atrial fibrillation Continue home rate control with metoprolol Not on anticoagulation at home CHADS VASc ~ 5 (age, female, hypertension, CHF) Per patient atrial fibrillation is resolved, awaiting outside medical records to confirm Currently in sinus tachycardia per ECG Changes to medications anticipated at discharge:TBD Elvi Anderson Pharm.D., R.Ph. DOG VENDER * Cristino Pool, P.T. - 10/22/2023 10:42 AM CST Assessed patient's wounds with hospitalist and nursing staff. Current plan outlined by hospitalist is appropriate and will be carried out by nursing staff. No further need for physical therapy at this time. DOG VENDER * Williams Barber M.D. 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 This patient spent about 3 months in the [facility] for management and de bridement of a perirectal abscess, then discharge to a prison in [place] where she spent about a month before developing a respiratory infection treated with 5 days of levofloxacin. The patient presented to the emergency room shortly after completing her course, on 10/18/23, with fevers, cough, shortness breath and hypoxia. With no room locally [place] the [place] Inter[place] History: today the patient reports that she is feeling actually fairly good in terms of her breathing. Nursing reports no hypoxia. I did have an opportunity to take a look at the patient's wounds with our wound care certified physical therapist today who essentially recommends no changes to the plans of care in terms of the patient's wounds Medications Scheduled Medication Ordered Dose/Rate, Route, Frequency Last Action acetaminophen tablet 1,000 mg (TYLENOL) 1,000 mg, oral, TID Given, 1,000 mg at 10/22 821 amoxicillin-pot clavulanate 875-125 mg per tablet 1 tablet (AUGMENTIN) 1 tablet, oral, BID with meals Ordered ascorbic acid (vitamin C) tablet 1,000 mg (VITAMIN C) 1,000 mg, oral, Daily Given, 1,000 mg at 10/22 822 cefTRIAXone injection 2 g (ROCEPHIN) 2 g, IV, Daily at bedtime Given, 2 g at 10/21 2027 doxycycline monohydrate tablet 100 mg (ADOXA) 100 mg, oral, BID before breakfast and dinner Given, 100 mg at 10/22 616 furosemide tablet 50 mg (LASIX) 50 mg, oral, BID Given, 50 mg at 10/22 822 gabapentin capsule 300 mg (NEURONTIN) 300 mg, oral, TID Given, 300 mg at 10/22 821 ipratropium 0.02 % nebulizer solution 500 mcg (ATROVENT) 0.5 mg, nebu, TID Given, 500 mcg at 10/22 616 metoprolol succinate 24 hr tablet 50 mg (TOPROL-XL) 50 mg, oral, Daily Given, 50 mg at 10/22 822 miconazole 2 % powder 1 Application (MICATIN) 1 Application, top, BID Given, 1 Application at 10/[address] tablet 40 mg (PROTONIX) 40 mg, oral, BID before breakfast and dinner Given, 40 mg at 10/22 616 pediatric ykqzpvuxwuiw-mjef-zgqevubd chewable tablet 1 tablet (FLINTSTONES COMPLETE) 1 tablet, oral, Daily Given, 1 tablet at 10/22 822 potassium chloride ER tablet 20 mEq (KLORCON/K-TAB) 20 mEq, oral, TID with meals Given, 20 mEq at 10/22 743 predniSONE tablet 10 mg (DELTASONE) 10 mg, oral, Daily Ordered predniSONE tablet 20 mg (DELTASONE) (Followed by Linked Group #1) 20 mg, oral, Daily Ordered predniSONE tablet 30 mg (DELTASONE) (Followed by [facility] #1) 30 mg, oral, Daily Ordered zinc sulfate capsule 220 mg (ZINCATE) 220 mg, oral, Daily with breakfast Given, 220 mg at 10/22 743 PRN Medication Ordered Dose/Rate, Route, Frequency Last Action benzonatate capsule 100 mg (TESSALON PERLES) 100 mg, oral, TID PRN Ordered bisacodyL suppository 10 mg (DULCOLAX) 10 mg, rectal, BID PRN Ordered loperamide capsule 2 mg (IMODIUM A-D) 2 mg, oral, 4x Daily PRN Ordered oxyCODONE IR tablet 5 mg (ROXICODONE) 5 mg, oral, Q4H PRN Given, 5 mg at 10/22 0751 OBJECTIVE Admission Weight: 62.2 kg Current Weight: 62.2 kg VITAL SIGNS Blood Pressure: 156/81, Heart Rate: 75, Pulse Rate: 73, Resp Rate: 24, Temperature: 36.1 ??C, SpO2:94 % PHYSICAL EXAM General: The patient is alert, oriented and in no acute distress Neurologic: Patient with dysphonia, also paraplegia Cardiovascular: Regular rate and rhythm Respiratory: lungs are clear to auscultation bilaterally with no wheezing Integumentary: Reviewed patient's wounds with the wound care certified physical therapist today. Seton appears to be in place. No evidence of any feculent material. No substantial change in size of the wound receiving wound VAC therapy nor the perirectal abscess area. DIAGNOSTICS Lab results last 24 hours: Recent Results (from the past 24 hour(s)) CBC with Differential, Blood Collection Time: 10/22/23 6:19 AM Result Value Hemoglobin 12.7 Hematocrit 41.2 Erythrocytes 4.85 MCV 84.9 RBC Distrib Width 19.3 (H) Platelet Count 273 Leukocytes 13.9 (H) Neutrophils 9.71 (H) Lymphocytes 2.90 Monocytes 1.21 (H) Eosinophils 0.00 (L) Basophils 0.03 CRP (C-Reactive Protein) Collection Time: 10/22/23 6:19 AM Result Value C-Reactive Protein (CRP), P 12.0 (H) Morphology Evaluation Collection Time: 10/22/23 6:19 AM Result Value RBC Morphology See Specific Findings PLT Morphology Normal PLT Estimate Adequate Anisocytosis Slight (A) Microcytosis Slight (A) ASSESSMENT / PLAN #1 Chronic Diastolic (Congestive) Heart Failure (HCC) #2 Unspecified Open Wound Right Buttock Initial #3 Other Adrenocortical Insufficiency (HCC) #4 Neurogenic Bladder #5 Arthritis Rheumatoid (HCC) #6 Hypertension Essential Primary #7 Corticosteroid Treatment Snf Systemic #8 Paraplegia (HCC) #9 Acute Respiratory Failure With Hypoxia (HCC) #10 Abnormal Urinalysis #11 Fever Of Unknown Origin #12 Pneumonitis Due To Inhalation Of Food And Vomit (HCC) #13 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 She wants to eat at this time - so we are using aspiration precautions. Video swallow and esophagram are ordered, but are not available at our site. Patient has been evaluated previously and works with a speech therapist at her SNF, and reports no change from baseline -- Continue ceftriaxone and doxycycline day 3/7 today. Follow-up blood/urine cultures. -- Positive MRSA nasal PCR test. Appreciate ID eConsult notes from today recommending ceftriaxone and doxycycline for a total of 5 days. No additional MRSA coverage is recommended. Augmentin and doxycycline were recommended as oral options. The patient lost her IV last night, and declined to have another placed. We will make the switch to Augmentin doxycycline today. I did confirm with the patient that she is received penicillin based antibiotics including both Augmentin and amoxicillin as an outpatient and has not had any allergic response to those medications. She does have piperacillin listed as causing a rash -white blood cell count up slightly today from 12.0 up to 13.9, still down from 16 at admission. Suspect elevation in white blood cell count is chronic and related to her chronic wounds, but will go ahead and get a chest x-ray today. -- Continue aspiration precautions. Monitor for evidence of on-going aspiration. Appreciate ANNEALING OVEN OPERATOR assistance with swallow studies -- DuoNebs makes her jittery, so switched to Atrovent nebs. (reduced to 3 times daily secondary to PSVT) -- Consider sputum testing. -- Appropriate cough management -- Fall/Aspiration precautions -- Appreciate the assistance of our rehab staff. #4 Chronic Diastolic (Congestive) Heart Failure (HCC) #5 Atrial Fibrillation Unspecified ([facility]) #6 Hypertension Essential Primary, Severe HUI -- Continue bedtime BiPAP therapy -- Per patient, considered resolved by [place] PCP. Hence, no anticoagulation. Apparently, the metoprolol succinate is for hypertension. Review requested medical records from [facility] to confirm - when available. -- Monitor for any evidence of acute heart failure. -- Monitor renal function and electrolytes and address abnormalities. -- Monitor Intake/output, Labs, Vitals, Daily weights # PSVT - no recurrence of PSVT that we have been notified of. 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 -- Q2H repositioning to offload areas at risk for pressure ulcers as appropriate. -- Appreciate assistance of PT wound staff. -- Monitor wounds and record photos in the chart as appropriate. -- Follow-up as recommended by [place] providers. -noted that we do not have the calcium alginate that was being used to pack the patient's wound while she was at the SNF. Will use Aquacel in its place. We do not have Vashe either, so using normal saline in its place for now - no real change in size of wounds today. No evidence of acute infection. No evidence of feculent material in the perirectal wound. Continue current wound cares with the above substitutions. Appreciate the assistance of Wound Care team. #12 Other Adrenocortical Insufficiency (HCC) #13 Arthritis Rheumatoid (HCC) #14 Corticosteroid Treatment Dolphin Trainer Systemic -- Use prednisone taper back down to chronic prednisone 10 mg daily - for stress steroids dosing given suspected pneumonia. Current dose is 40mg daily. Will be back on chronic 10mg dose on 10/28. -- Continue management of chronic medical issues. Diet: 2000 mg sodium cardiovascular diet Prophylaxis: SCDs only Code Status: DNR/DNI Dispo: Plan to discharge back to her nursing home facility most likely morning DOG VENDER * Williams Barber M.D. 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 This patient spent about 3 months in the [facility] for management and de bridement of a perirectal abscess, then discharge to a prison in [place] where she spent about a month before developing a respiratory infection treated with 5 days of levofloxacin. The patient presented to the emergency room shortly after completing her course, on 10/18/23, with fevers, cough, shortness breath and hypoxia. [place] locally [place] History: Overnight the patient had a single run of PSVT 17 beats long. Per nursing she wasasleep with her CPAP on at the time. This morning when she was getting boosted in bed she had another run of PSVT documented at 200 beats per minute. The patient claims that she feels as though the nebulizer treatments (Atrovent) may be causing part of the problem and wishes to have this reduced from 4 times daily scheduled down to 3 times daily scheduled. Nursing reports that the patient also required 1-2 L of supplemental oxygen overnight to maintain SpO2 greater than 88%. They were able to wean this off this morning essentially immediately after waking up. Medications Scheduled Medication Ordered Dose/Rate, Route, Frequency Last Action acetaminophen tablet 1,000 mg (TYLENOL) 1,000 mg, oral, TID Given, 1,000 mg at 10/21 839 ascorbic acid (vitamin C) tablet 1,000 mg (VITAMIN C) 1,000 mg, oral, Daily Given, 1,000 mg at 10/21 839 benzonatate capsule 100 mg (TESSALON PERLES) 100 mg, oral, 4x Daily Given, 100 mg at 10/19 2143 cefTRIAXone injection 2 g (ROCEPHIN) 2 g, IV, Daily at bedtime Given, 2 g at 10/20 2030 doxycycline monohydrate tablet 100 mg (ADOXA) 100 mg, oral, BID before breakfast and dinner Given, 100 mg at 10/21 626 furosemide tablet 50 mg (LASIX) 50 mg, oral, BID Given, 50 mg at 10/21 839 gabapentin capsule 300 mg (NEURONTIN) 300 mg, oral, TID Given, 300 mg at 10/21 839 ipratropium 0.02 % nebulizer solution 500 mcg (ATROVENT) 0.5 mg, nebu, TID Ordered metoprolol succinate 24 hr tablet 50 mg (TOPROL-XL) 50 mg, oral, Daily Given, 50 mg at 10/21 839 miconazole 2 % powder 1 Application (MICATIN) 1 Application, top, BID Given, 1 Application at 10/[address] tablet 40 mg (PROTONIX) 40 mg, oral, BID before breakfast and dinner Given, 40 mg at 10/21 626 pediatric zafwhjvbkywq-dwey-viwjwlyn chewable tablet 1 tablet (FLINTSTONES COMPLETE) 1 tablet, oral, Daily Given, 1 tablet at 10/21 838 potassium chloride ER tablet 20 mEq (KLORCON/K-TAB) 20 mEq, oral, TID with meals Given, 20 mEq at 10/21 718 predniSONE tablet 10 mg (DELTASONE) 10 mg, oral, Daily Ordered predniSONE tablet 20 mg (DELTASONE) (Followed by [facility] #1) 20 mg, oral, Daily Ordered predniSONE tablet 30 mg (DELTASONE) (Followed by [facility] #1) 30 mg, oral, Daily Ordered predniSONE tablet 40 mg (DELTASONE) (Followed by [facility] #1) 40 mg, oral, Daily Given, 40 mg at 10/21 839 zinc sulfate capsule 220 mg (ZINCATE) 220 mg, oral, Daily with breakfast Given, 220 mg at 10/21 718 PRN Medication Ordered Dose/Rate, Route, Frequency Last Action bisacodyL suppository 10 mg (DULCOLAX) 10 mg, rectal, BID PRN Ordered loperamide capsule 2 mg (IMODIUM A-D) 2 mg, oral, 4x Daily PRN Ordered oxyCODONE IR tablet 5 mg (ROXICODONE) 5 mg, oral, Q4H PRN Given, 5 mg at 10/21 718 OBJECTIVE Admission Weight: 62.2 kg Current Weight: 62.2 kg VITAL SIGNS Blood Pressure: 148/72, Heart Rate: (!) 200, Pulse Rate: 73, Resp Rate: 18, Temperature: 36.2 ??C, SpO2: 94 % PHYSICAL EXAM General: The patient is alert, oriented and in no acute distress Neurologic: Patient with dysphonia, also paraplegia Cardiovascular: Regular rate and rhythm Respiratory: Mild crackles in the bases bilaterally. No wheezing noted. DIAGNOSTICS Lab results last 24 hours: Recent Results (from the past 24 hour(s)) Basic Metabolic Panel Collection Time: 10/21/23 6:32 AM Result Value Potassium, P 4.2 Sodium, P 137 Chloride, P 97 (L) Bicarbonate, P 30 (H) Anion Gap, P 10 BUN (Blood Urea Nitrogen), P 36 (H) Creatinine 0.37 (L) Estimated GFR (eGFR) >90 Calcium, Total, P 9.1 Glucose, P 119 CBC with Differential, Blood Collection Time: 10/21/23 6:32 AM Result Value Hemoglobin 12.0 Hematocrit 39.7 Erythrocytes 4.63 MCV 85.7 RBC Distrib Width 19.3 (H) Platelet Count 260 Leukocytes 12.7 (H) Neutrophils 8.59 (H) Lymphocytes 3.13 (H) Monocytes 0.96 (H) Eosinophils 0.01 (L) Basophils 0.01 Morphology Evaluation Collection Time: 10/21/23 6:32 AM Result Value RBC Morphology See Specific Findings PLT Morphology Normal PLT Estimate Adequate Anisocytosis Slight (A) Microcytosis Slight (A) ASSESSMENT / PLAN #1 Chronic Diastolic (Congestive) Heart Failure ([facility]) #2 Unspecified Open Wound Right Buttock Initial #3 Other Adrenocortical Insufficiency ([facility]) #4 Neurogenic Bladder #5 Arthritis Rheumatoid ([facility]) #6 Hypertension Essential Primary #7 Corticosteroid Treatment Snf Systemic #8 Paraplegia ([facility]) #9 Acute Respiratory Failure With Hypoxia ([facility]) #10 Abnormal Urinalysis #11 Fever Of Unknown Origin #12 Pneumonitis Due To Inhalation Of Food And Vomit ([facility]) #13 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 ([facility]) #14 Obstructive Sleep Apnea Adult #15 Infection Urinary Catheter Indwelling Initial ([facility]) #16 Do Not Resuscitate Status #17 Pneumonia #1 Fever Of Unknown Origin #2 Acute Respiratory Failure With Hypoxia ([facility]) #3 Aspiration Pneumonia, Abnormal Urinalysis, Neurogenic Bladder, Chronic Cristobal Catheter -- Although she passed the bed-side nursing swallow assessment, aspiration remains a concern. She wants to eat at this time - so we are using aspiration precautions. Video swallow and esophagram are ordered, but are not available at our site. Patient has been evaluated previously and works with a speech therapist at her SNF, and reports no change from baseline -- Continue ceftriaxone and doxycycline day 3/7 today. Follow-up blood/urine cultures. -- Positive MRSA nasal PCR test. Appreciate ID eConsult notes from today recommending ceftriaxone and doxycycline for a total of 5 days. No additional MRSA coverage is recommended. Augmentin and doxycycline are recommended if the patient discharges prior to completion of IV antibiotics -white blood cell count up slightly today from 12.0 up to 12.7, still down from 16 at admission. Recheck white blood cell count and CRP tomorrow. If evidence that infection is worsening, will reconsult [facility]. -- Continue aspiration precautions. Monitor for evidence of on-going aspiration. Appreciate ANNEALING OVEN OPERATOR assistance with swallow studies -- Fahad makes her jittery, so switched to Atrovent nebs. (reduced to 3 times daily secondary to PSVT) -- Consider sputum testing. -- Appropriate cough management -- Fall/Aspiration precautions -- Appreciate the assistance of our rehab staff. #4 Chronic Diastolic (Congestive) Heart Failure (HCC) #5 Atrial Fibrillation Unspecified (HCC) #6 Hypertension Essential Primary, Severe HUI -- Continue bedtime BiPAP therapy -- Per patient, considered resolved by [place] PCP. Hence, no anticoagulation. Apparently, the metoprolol succinate is for hypertension. Review requested medical records from [facility] to confirm - when available. -- Monitor for any evidence of acute heart failure. -- Monitor renal function and electrolytes and address abnormalities. -- Monitor Intake/output, Labs, Vitals, Daily weights # PSVT -patient with 17 beat run of PSVT with max heart rate 154 on the morning of 10/21/23 with patient sleeping and asymptomatic. Another run while being boosted in bed occurred with heart rate of 200. Again asymptomatic. -No changes to the plan of care. Continue current dose Toprol XL. Baseline heart rate is in the upper 50s and low 60s. #9 Unspecified Open Wounds Right Buttock Initial #10 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) #11 Paraplegia (HCC) -- Continue recommended wound cares (including Wound Vac therapy) for the two Right buttock wounds,Left-sacral pressure ulcer, and Left heel stage 1 pressure ulcer. -- Q2H repositioning to offload areas at risk for pressure ulcers as appropriate. -- Appreciate assistance of PT wound staff. -- Monitor wounds and record photos in the chart as appropriate. -- Follow-up as recommended by [place] providers. -noted that we do not have the calcium alginate that was being used to pack the patient's wound while she was at the SNF. Will use Aquacel in its place. #12 Other Adrenocortical Insufficiency (HCC) #13 Arthritis Rheumatoid (HCC) #14 Corticosteroid Treatment Snf Systemic -- Use prednisone taper back down to chronic prednisone 10 mg daily - for stress steroids dosing given suspected pneumonia. Current dose is 40mg daily. Will be back on chronic 10mg dose on 10/28. -- Continue management of chronic medical issues. Diet: 2000 mg sodium cardiovascular diet Prophylaxis: SCDs only Code Status: DNR/DNI Dispo: Plan to discharge back to her nursing home facility most likely morning DOG VENDER * Williams Barber M.D. 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 This patient spent about 3 months in the [facility] for management and de bridement of a perirectal abscess, then discharge to a prison in [place] where she spent about a month before developing a respiratory infection treated with 5 days of levofloxacin. The patient presented to the emergency room shortly after completing her course, on 10/18/23, with fevers, cough, shortness breath and hypoxia. With no room locally for the [place] Interval History: This patient with known vocal cord paralysis was given cefepime in the emergency department, and was switched to ceftriaxone plus doxycycline upon her arrival to our facility early in the morning on 10/19. The patient reports that she would heels better from a respiratory stand put,and nursing reports that they were just able to wean her off of oxygen this morning. Medications Scheduled Medication Ordered Dose/Rate, Route, Frequency Last Action acetaminophen tablet 1,000 mg (TYLENOL) 1,000 mg, oral, TID Given, 1,000 mg at 10/20 1342 ascorbic acid (vitamin C) tablet 1,000 mg (VITAMIN C) 1,000 mg, oral, Daily Given, 1,000 mg at 01/08 0810 benzonatate capsule 100 mg (TESSALON PERLES) 100 mg, oral, 4x Daily Given, 100 mg at 10/19 2143 cefTRIAXone injection 2 g (ROCEPHIN) 2 g, IV, Daily at bedtime Given, 2 g at 10/19 2142 doxycycline monohydrate tablet 100 mg (ADOXA) 100 mg, oral, BID before breakfast and dinner Ordered furosemide tablet 50 mg (LASIX) 50 mg, oral, BID Given, 50 mg at 10/20 810 gabapentin capsule 300 mg (NEURONTIN) 300 mg, oral, TID Given, 300 mg at 10/20 1341 ipratropium 0.02 % nebulizer solution 500 mcg (ATROVENT) 0.5 mg, nebu, Q6H ESTELA Given, 500 mcg at 10/20 1120 metoprolol succinate 24 hr tablet 50 mg (TOPROL-XL) 50 mg, oral, Daily Given, 50 mg at 10/20 809 miconazole 2 % powder 1 Application (MICATIN) 1 Application, top, BID Given, 1 Application at 10/[address] tablet 40 mg (PROTONIX) 40 mg, oral, BID before breakfast and dinner Given, 40 mg at 10/20 603 pediatric xwpjqbotcvhp-kmfu-waauabqa chewable tablet 1 tablet (FLINTSTONES COMPLETE) 1 tablet, oral, Daily Given, 1 tablet at 10/20 810 potassium chloride ER tablet 20 mEq (KLORCON/K-TAB) 20 mEq, oral, TID with meals Given, 20 mEq at 10/20 1120 predniSONE tablet 10 mg (DELTASONE) 10 mg, oral, Daily Ordered predniSONE tablet 20 mg (DELTASONE) (Followed by [facility] #1) 20 mg, oral, Daily Ordered predniSONE tablet 30 mg (DELTASONE) (Followed by [facility] #1) 30 mg, oral, Daily Ordered predniSONE tablet 40 mg (DELTASONE) (Followed by [facility] #1) 40 mg, oral, Daily Given, 40 mg at 10/20 809 zinc sulfate capsule 220 mg (ZINCATE) 220 mg, oral, Daily with breakfast Given, 220 mg at 10/20 809 PRN Medication Ordered Dose/Rate, Route, Frequency Last Action bisacodyL suppository 10 mg (DULCOLAX) 10 mg, rectal, BID PRN Ordered loperamide capsule 2 mg (IMODIUM A-D) 2 mg, oral, 4x Daily PRN Ordered oxyCODONE IR tablet 5 mg (ROXICODONE) 5 mg, oral, Q4H PRN Given, 5 mg at 10/20 817 OBJECTIVE Admission Weight: 62.2 kg Current Weight: 62.2 kg VITAL SIGNS Height: 152 cm, Weight: 62.2 kg, BMI (Calculated): 26.9 kg/m??, Blood Pressure: 154/64, Heart Rate:76, Pulse Rate: 62, Resp Rate: 16, Temperature: 36 ??C, SpO2: 96 % I/O last 3 completed shifts: In: 750 [P.O.:650] Out: 2150 [Urine:2150] I/O this shift: In: 100 Out: - PHYSICAL EXAM General: The patient is alert, oriented and in no acute distress Neurologic: Patient with dysphonia, also paraplegia Cardiovascular: Regular rate and rhythm Respiratory: Clear to auscultation bilaterally Integumentary: Examination of the buttocks area reveals a very shallow lesion on the left low back/upper buttock area. There is a right lateral buttock wound for which there is a wound VAC in place. There is an open wound to the right of the rectum which tunnels 6 cm towards the rectum with base ofthis wound pale, but with no significant discharge nor erythema. No evidence of any feculent material. DIAGNOSTICS Lab results last 24 hours: Recent Results (from the past 24 hour(s)) CRP (C-Reactive Protein) Collection Time: 10/20/23 6:08 AM Result Value C-Reactive Protein (CRP), P 49.7 (H) Basic Metabolic Panel Collection Time: 10/20/23 6:08 AM Result Value Potassium, P 4.4 Sodium, P 139 Chloride, P 98 Bicarbonate, P 31 (H) Anion Gap, P 10 BUN (Blood Urea Nitrogen), P 33 (H) Creatinine 0.43 (L) Estimated GFR (eGFR) >90 Calcium, Total, P 8.9 Glucose, P 162 (H) CBC with Differential, Blood Collection Time: 10/20/23 6:08 AM Result Value Hemoglobin 11.7 Hematocrit 38.4 Erythrocytes 4.46 MCV 86.1 RBC Distrib Width 19.5 (H) Platelet Count 239 Leukocytes 12.0 (H) Neutrophils 8.70 (H) Lymphocytes 2.52 Monocytes 0.74 Eosinophils 0.01 (L) Basophils 0.02 Morphology Evaluation Collection Time: 10/20/23 6:08 AM Result Value RBC Morphology See Specific Findings PLT Morphology See Specific Findings PLT Estimate Adequate Anisocytosis Slight (A) Hypochromia Slight (A) Large PLT Present (A) ASSESSMENT / PLAN #1 Chronic Diastolic (Congestive) Heart Failure (HCC) #2 Unspecified Open Wound Right Buttock Initial #3 Other Adrenocortical Insufficiency (HCC) #4 Neurogenic Bladder #5 Arthritis Rheumatoid (HCC) #6 Hypertension Essential Primary #7 Corticosteroid Treatment Snf Systemic #8 Paraplegia (HCC) #9 Acute Respiratory Failure With Hypoxia ([facility]) #10 Abnormal Urinalysis #11 Fever Of Unknown Origin #12 Pneumonitis Due To Inhalation Of Food And Vomit (HCC) #13 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 ([facility]) #14 Obstructive Sleep Apnea Adult #15 Infection Urinary Catheter Indwelling Initial (HCC) #16 Do Not Resuscitate Status #17 Pneumonia #1 Fever Of Unknown Origin #2 Acute Respiratory Failure With Hypoxia (HCC) #3 Aspiration Pneumonia, Abnormal Urinalysis, Neurogenic Bladder, Chronic Cristobal Catheter -- Although she passed the bed-side nursing swallow assessment, aspiration remains a concern. She wants to eat at this time - so we are using aspiration precautions. Video swallow and esophagram are ordered, but are not available at our site. Patient has been evaluated and works with a speech therapist at her SNF, and reports no change from baseline -- Continue ceftriaxone and doxycycline day 2/7 today. Follow-up blood/urine cultures. -- Positive MRSA nasal PCR test. Appreciate ID eConsult notes from today recommending ceftriaxone and doxycycline for a total of 5 days. No additional MRSA coverage is recommended. Augmentin and doxycycline are recommended if the patient discharges prior to completion of IV antibiotics -white blood cell count and CRP both improved today. Recheck CBC tomorrow. -- Continue aspiration precautions. Monitor for evidence of on-going aspiration. Appreciate ANNEALING OVEN OPERATOR assistance with swallow studies -- Fahad makes her jittery, so switched to Atrovent nebs. -- Consider sputum testing. -- Appropriate cough management -- Fall/Aspiration precautions -- Appreciate the assistance of our rehab staff. #4 Chronic Diastolic (Congestive) Heart Failure (HCC) #5 Atrial Fibrillation Unspecified (HCC) #6 Hypertension Essential Primary, Severe HUI -- Continue bedtime BiPAP therapy -- Per patient, considered resolved by [place] PCP. Hence, no anticoagulation. Apparently, the metoprolol succinate is for hypertension. Review requested medical records from [facility] to confirm - when available. -- Monitor for any evidence of acute heart failure. -- Monitor renal function and electrolytes and address abnormalities. -- Monitor Intake/output, Labs, Vitals, Daily weights #9 Unspecified Open Wounds Right Buttock Initial #10 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) #11 Paraplegia (HCC) -- Continue recommended wound cares (including Wound Vac therapy) for the two Right buttock wounds,Left-sacral pressure ulcer, and Left heel stage 1 pressure ulcer. -- Q2H repositioning to offload areas at risk for pressure ulcers as appropriate. -- Appreciate assistance of PT wound staff. -- Monitor wounds and record photos in the chart as appropriate. -- Follow-up as recommended by [place] providers. -noted that we do not have the calcium alginate that was being used to back the patient's wound. Will use Aquacel in its place. #12 Other Adrenocortical Insufficiency (HCC) #13 Arthritis Rheumatoid ([facility]) #14 Corticosteroid Treatment Dolphin Trainer Systemic -- Use prednisone taper back down to chronic prednisone 10 mg daily - for stress steroids dosing given suspected pneumonia -- Continue management of chronic medical issues. Review: Old records reviewed 10 minutes DVT Prophylaxis: SCDs Code status: DNI / DNR - confirmed in conversation with daughter and patient. Medication review: Home medications reconciled. Discharge planning: Pending clinical course and appropriate discharge planning, we anticipate that more than two in-patient midnight stays will be needed. Diet: 2000 mg sodium cardiovascular diet Prophylaxis: SCDs only Code Status: DNR/DNI Dispo: Plan to discharge back to her nursing home facility most likely morning DOG VENDER * Elvi Anderson, Celestino.D., R.Ph. - 10/20/2023 9:26 AM CST Pharmacist Progress Note Reason for admission: Pneumonia PMH: SNF resident, paraplegia, rheumatoid arthritis, diastolic heart failure OBJECTIVE Home medications: Held: n/a Changed: n/a Prophylaxis: pantoprazole (home PPI), SCDs ASSESSMENT / PLAN Pneumonia Completed 5 days of levofloxacin a few days prior to admission Antibiotics Ceftriaxone (10/19 - ) Cefepime (10/18 - 10/19) Doxycycline(10/18 - ) Changed to oral per protocol on 10/20 Steroids Increased for stress dosing given long-term corticosteroid use Taper (10/20 - 10/27) then resume 10 mg daily dose Note glucose increased this AM to 162, no intervention needed at this time as <180, but recommend to continue to follow while on increased steroid doses WBC and fever curve are improving CHF Atrial fibrillation Continue home rate control with metoprolol Not on anticoagulation at home CHADS VASc ~ 5 (age, female, hypertension, CHF) Per patient atrial fibrillation is resolved, awaiting outside medical records to confirm Currently in sinus tachycardia per ECG Changes to medications anticipated at discharge:TBD Elvi Anderson Pharm.D., R.Ph. DOG VENDER documented in this encounter H&P Notes * Pancho Burr M.D. - 10/19/2023 7:24 AM CST SUBJECTIVE CHIEF COMPLAINT Patient is a 77 y.o. female who presents with fevers, cough, and shortness of breath and diagnosed with pneumonia. 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 Of note, a couple of days prior to this presentation completed5 day course of levofloxacin for cough and possible pneumonia. On 10/18/2023, she presented to the [facility] with fevers, cough, shortness of breath,hypoxia to the 80s. In the ED, she was coughing, tachycardic to 116, and febrile. She noted rare aspiration. Labs showed leukocytosis to 15.6 (has chronic leukocytosis up to 19.1 on 10/10/2023); lactate 1.8; NT proBNP 586; creatinine 0.37; urinalysis showed active sediment; blood culture, urine culture, nasal MRSA PCR pending. EKG showed sinus tachycardia. Chest x-ray showed Right infrahilar consolidation suggesting pneumonia, suspect aspiration sequela. She received IV hydrocortisone sodium succinate 100 mg x 1, IV cefepime 2 g x 1, IV doxycycline 100 mg x 1, 1000 mL normal saline IVF, oral oxycodone 5 mg x2. Due to bed availability, she was transferred to the [facility] for further management. On the floor, she passed bedside swallow evaluation - and diet was advanced from NPO to regular diet - with aspiration precautions. ANNEALING OVEN OPERATOR referral was also made. Cefepime was switched to ceftriaxone and doxycycline was continued. MRSA nasal swab PCR returned positive. Since she feels improved withoutMRSA coverage, Infectious disease eConsult requested. Per patient, Afib was considered resolved by [place] PCP. Hence, no anticoagulation. Apparently, the metoprolol succinate is for hypertension.Review requested medical records from [facility] to confirm - when available. 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) Chronic Diastolic (Congestive) Heart Failure (HCC) Abscess Perirectal Pain Low Back Chronic Other Adrenocortical Insufficiency (HCC) Other Acidosis Osteoporosis Neurogenic Bladder Edema Localized Diarrhea Benign Neoplasm Colon Atrial Fibrillation Unspecified (HCC) Arthritis Rheumatoid (HCC) Anemia Hypertension Essential Primary Corticosteroid Treatment Snf Systemic Paraplegia (HCC) Voice And Resonance Disorder Acute Respiratory Failure With Hypoxia (HCC) Abnormal Urinalysis Fever Of Unknown Origin Pneumonia The following portions of the patient's history were reviewed and updated as appropriate: allergies, current medications, family history, medical history, social history, surgical history, and problem list. REVIEW OF SYSTEMS Pertinent items are noted in HPI; all other review of systems was negative. OBJECTIVE VITAL SIGNS Temperature: [36.2 ??C-38.4 ??C] 36.4 ??C Heart Rate: [90-117] 98 Resp Rate: [15-28] 16 Blood Pressure: (83-115)/(41-61) 115/61 FiO2 (%): [96 %] 96 % SpO2: [83 %-98 %] 96 % Flow Rate (L/min): [2 L/min] 2 L/min Height: [152 cm] 152 cm Weight: [62.2 kg] 62.2 kg BSA (Calculated - sq m): [1.62 sq meters] 1.62 sq meters BMI (Calculated): [26.9 kg/m??] 26.9 kg/m?? Pulse Rate: [94-116] 101 PHYSICAL EXAM General: In no acute distress. Skin: No jaundice noted. Noted about 2 Right buttock wounds (the Hvdwe-qtpe-aoqamm wound is wet-drypacked and the mid-Right buttock wound is managed with wound vac) - both with good granulation tissue and no signs of infection. Noted stage 1-to-2 Left sacral pressure ulcer with no signs of infection. Noted left heel stage 1 pressure ulcer. HEENT: Supple neck. No scleral icterus. Cardiac: Tachycardic. Regular rhythm. Lungs: Occasional productive cough. No increased work of breathing. On supplemental O2 via nasal cannula at 2 L/min. Abdomen: Soft, nontender. No flank tenderness noted. Extremities/MSK: No leg swelling. Moves arms symmetrically. Unable to move legs due to paraplegia. Can still sense touch and pain in legs. Neuro/Psych: Alert and oriented x3. Affect and speech within normal limits. DIAGNOSTICS ECG 12 Lead Result Date: 10/18/2023 Sinus tachycardia Nonspecific T wave abnormality No previous ECGs available Reviewed by ANGELITO Allen Chest Portable 1 View Result Date: 10/18/2023 Impression: Right infrahilar consolidation suggesting pneumonia, suspect aspiration sequela. Negative for pleural effusion. Thoracolumbar instrumented postsurgical change. LABORATORY Recent Results (from the past 24 hour(s)) SARS Coronavirus 2, PCR Rapid Symptomatic Collection Time: 10/18/23 8:28 PM Specimen: Nasopharynx; Swab Result Value SARS CoV-2, PCR, Rapid, V Undetected SARS Coronavirus 2, Source, Rapid Swab, Nasopharynx Influenza A/B and RSV, PCR, Point of Care Collection Time: 10/18/23 8:35 PM Result Value Influenza A, POCT Negative Influenza B, POCT Negative Resp Syncytial Virus, POCT Negative CBC with Differential, Blood Collection Time: 10/18/23 8:46 PM Result Value Hemoglobin 12.0 Hematocrit 39.5 Erythrocytes 4.65 MCV 84.9 RBC Distrib Width 19.7 (H) Platelet Count 294 Leukocytes 15.6 (H) Neutrophils 10.44 (H) Lymphocytes 3.66 (H) Monocytes 1.45 (H) Eosinophils 0.06 Basophils 0.02 Lactate for Sepsis with Reflex Collection Time: 10/18/23 8:46 PM Result Value Lactate, P 1.8 Basic Metabolic Panel Collection Time: 10/18/23 8:46 PM Result Value Potassium, P 4.2 Sodium, P 136 Chloride, P 92 (L) Bicarbonate, P 33 (H) Anion Gap, P 11 BUN (Blood Urea Nitrogen), P 20 Creatinine 0.40 (L) Estimated GFR (eGFR) >90 Calcium, Total, P 8.9 Glucose, P 106 Urinalysis with Microscopic: Urine, Midstream Collection Time: 10/18/23 9:14 PM Result Value Source Urine, Urine, Midstream Clarity Slightly Cloudy (A) Color Yellow Blood Trace (A) Nitrite Negative Leukocyte Esterase Small (A) Protein Negative Glucose Negative Ketones, QI(U) Negative Bilirubin Negative pH 5.0 Specific [place] 1.015 Urobilinogen 0.2 White Blood Cells >100 (A) Red Blood Cells 3-10 (A) Dysmorphic Red Blood Cells <=25 Bacteria Present (A) Yeast Present (A) NT-Pro B-Type Natriuretic Peptide (BNP) Collection Time: 10/18/23 11:48 PM Result Value NT-Pro BNP 589 (H) D-Dimer Collection Time: 10/19/23 4:27 AM Result Value D-Dimer, P 3988 (H) CRP (C-Reactive Protein) Collection Time: 10/19/23 4:27 AM Result Value C-Reactive Protein (CRP), P 53.4 (H) Basic Metabolic Panel Collection Time: 10/19/23 4:27 AM Result Value Potassium, P 3.6 Sodium, P 135 Chloride, P 95 (L) Bicarbonate, P 30 (H) Anion Gap, P 10 BUN (Blood Urea Nitrogen), P 23 (H) Creatinine 0.37 (L) Estimated GFR (eGFR) >90 Calcium, Total, P 8.3 (L) Glucose, P 129 Hepatic Function Panel Collection Time: 10/19/23 4:27 AM Result Value Bilirubin, Total, P 0.4 Bilirubin, Direct, P <0.2 Aspartate Aminotransferase (AST), P 38 Alanine Aminotransferase (ALT), P 17 Alkaline Phosphatase, P 148 (H) Albumin, P 3.1 (L) Protein, Total, P 5.0 (L) CBC with Differential, Blood Collection Time: 10/19/23 4:27 AM Result Value Hemoglobin 11.3 (L) Hematocrit 37.3 Erythrocytes 4.37 MCV 85.4 RBC Distrib Width 19.2 (H) Platelet Count 249 Leukocytes 16.0 (H) Neutrophils 12.40 (H) Lymphocytes 2.71 Monocytes 0.84 (H) Eosinophils 0.02 (L) Basophils 0.03 Morphology Evaluation Collection Time: 10/19/23 4:27 AM Result Value RBC Morphology See Specific Findings PLT Morphology Normal PLT Estimate Adequate Anisocytosis Moderate (A) Hypochromia Slight (A) ASSESSMENT / PLAN #1 Fever Of Unknown Origin #2 Acute Respiratory Failure With Hypoxia (HCC) #3 Aspiration Pneumonia, Abnormal Urinalysis, Neurogenic Bladder, Chronic Cristobal Catheter -- Although she passed the bed-side nursing swallow assessment, aspiration remains a concern. She wants to eat at this time - so we are using aspiration precautions. Video swallow and esophagram are ordered. -- Continue ceftriaxone and doxycycline. Follow-up blood/urine cultures. -- Positive MRSA nasal PCR test - since she improved without MRSA coverage, appreciate infectious disease eConsult recommendations. -- Continue aspiration precautions. Monitor for evidence of on-going aspiration. Appreciate ANNEALING OVEN OPERATOR assistance with swallow studies -- DuoNebs makes her jittery, so switched to atrovent nebs. -- Consider sputum testing. -- Appropriate cough management -- Fall/Aspiration precautions -- Appreciate the assistance of our rehab staff. #4 Chronic Diastolic (Congestive) Heart Failure (HCC) #5 Atrial Fibrillation Unspecified (HCC) #6 Hypertension Essential Primary, Severe HUI -- Continue bedtime BiPAP therapy -- Per patient, considered resolved by [place] PCP. Hence, no anticoagulation. Apparently, the metoprolol succinate is for hypertension. Review requested medical records from [facility] to confirm - when available. -- Monitor for any evidence of acute heart failure. -- Monitor renal function and electrolytes and address abnormalities. -- Monitor Intake/output, Labs, Vitals, Daily weights #9 Unspecified Open Wounds Right Buttock Initial #10 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) #11 Paraplegia (HCC) -- Continue recommended wound cares (including Wound Vac therapy) for the two Right buttock wounds,Left-sacral pressure ulcer, and Left heel stage 1 pressure ulcer. -- Q2H repositioning to offload areas at risk for pressure ulcers as appropriate. -- Appreciate assistance of PT wound staff. -- Monitor wounds and record photos in the chart as appropriate. -- Follow-up as recommended by [place] providers. 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 Review: Old records reviewed 10 minutes DVT Prophylaxis: SCDs Code status: DNI / DNR - confirmed in conversation with daughter and patient. Medication review: Home medications reconciled. Discharge planning: Pending clinical course and appropriate discharge planning, we anticipate that more than two in-patient midnight stays will be needed. DOG VENDER documented in this encounter Consult Notes * Denia Mckinnon RDN, LD - 10/21/2023 9:42 AM CST Clinical Note Types: Initial Assessment/Consult NUTRITION VISIT REASON: wound healing NUTRITION ASSESSMENT Admitting Diagnosis: pneumonia Past Medical History: paraplegia from transverse myelitis, heart failure, Social History: alessandra strana Food and Nutrition Related History Previous Diet: Mary reports that she has been eating her usual which includes getting protein at each meal. She states she often takes ensure type supplement. She has eaten 50-100% of meals since admit. Nutrition education/counseling: she is aware of the need for a healthy diet with adequate protein for healing Food Allergies: none Food Intolerance: none noted Chewing/Swallowing Issues: she states she tries to eat softer foods Weight Change History: 10/19/23: 62.2 kg 10/14/23: 62.1 kg 09/19/23: 59.9 kg no significant changes, states usual is 132# Skin Integrity: Unspecified Open Wounds Right Buttock Initial 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 Malnutrition Assessment: Malnutrition criteria not met The patient does not meet the ASPEN Criteria of malnutrition based on: Interpretation of Weight Loss: No Change Body Fat: Normal Muscle Mass: Normal Fluid Accumulation: Absent PERTINENT LABS: Last 2 results Lab Units 10/21/23 0632 10/20/23 0608 BUN P mg/dL 36* 33* CREATININE mg/dL 0.37* 0.43* ESTIMATED GFR EGFR mL/min/BSA >90 >90 Last 3 results Lab Units 10/20/23 0608 10/19/23 0427 ALBUMIN P g/dL -- 3.1* CRP P mg/L 49.7* 53.4* ANTHROPOMETRICS Height: 152 cm Admission Weight: 62.2 kg Weight: 62.2 kg Weight Used for Equation Calculations: 62 kg BMI (Calculated): 26.9 kg/m?? ESTIMATED NEEDS: Weight Used for Equation Calculations: 62 kg kcal/k-30 Estimated Energy Needs (Low): 1550 kcal/day Estimated Energy Needs (High): 1860 kcal/day Weight Used to Calculate Protein Needs (Kg): 62 kg Method to Estimate Protein Needs (g/kg): 1.2 - 1.5 Estimated Protein Needs (Low): 74 Estimated Protein Needs (High): 93 Dietary Orders (From admission, onward) Start Ordered 10/19/23 1013 Adult Diet Regular; 2,000 mg Na; Cardiovascular Diet effective now Question Answer Comment Diet texture: Regular Sodium: 2,000 mg Na Other restrictions: Cardiovascular 10/19/23 1013 NUTRITION DIAGNOSIS: Increased nutrient needs related to increased demand for protein for wound healing as evidenced by multiple open areas stage 2-4 NUTRITION PLAN AND INTERVENTIONS: Nutrition Interventions Interventions: Medical food supplement (patient agrees with 4 oz TID chocolate premier protein withmeals) MONITORING AND EVALUATION: Nutrition Monitoring/Evaluation Monitoring: Meals/Supplement Intake, Wound Healing DOG VENDER * Mallika Peña L.I.C.SAnand - 10/20/2023 2:03 PM CST SUBJECTIVE Social work consulted for discharge planning. Social work met with patient via [employer] during bedside team rounding and followed up after via phone. Patient has been in short-term rehab at [facility] in [place] for wound cares. Prior to that, she was living at home with her daughter and had home health care services through [facility]. Patient anticipates returning to [facility] upon discharge. Social work reviewed transportation options and discussed out of pocket costs. 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) Chronic Diastolic (Congestive) Heart Failure ([facility]) Unspecified Open Wound Right Buttock Initial Pain Low Back Chronic Other Adrenocortical Insufficiency (HCC) Other Acidosis Osteoporosis Neurogenic Bladder Edema Localized Diarrhea Benign Neoplasm Colon Arthritis Rheumatoid ([facility]) Anemia Hypertension Essential Primary Corticosteroid Treatment Snf Systemic Paraplegia ([facility]) Voice And Resonance Disorder Acute Respiratory Failure With Hypoxia ([facility]) Abnormal Urinalysis Fever Of Unknown Origin Pneumonitis Due To Inhalation Of Food And Vomit ([facility]) 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 ([facility]) Obstructive Sleep Apnea Adult Infection Urinary Catheter Indwelling Initial ([facility]) Do Not Resuscitate Status Pneumonia ASSESSMENT / PLAN ASSESSMENT Orientation: Oriented to person, place and time Level of consciousness: Awake and alert Appearance: Age appearing Behavior observed: Calm Memory: good Estimated intellectual functioning: Average for developmental level Status of concentration: good Cooperation: Cooperative Mood: Calm Affect: Mood-congruent Speech: Within normal limits for volume, rate and tone. Thought process: Logical, linear, and goal-directed Thought content, auditory/visual hallucinations and/or delusions: No abnormality noted Judgement: fair Insight: fair Motivation for treatment: Fair INTERVENTIONS Spoke with Alessandra Villaseñor- patient is in short term rehab and confirmed bed hold PLAN Anticipate patient will return to [facility] on 10/23/23 Hernan BlackmonS.W. 10/20/23 DOG VENDER * Bruno Crow M.D., Ph.D. - 10/20/2023 12:17 PM CSTAssociated Order(s): IP ECONSULT TO INFECTIOUS DISEASE GENERAL The patient was not personally interviewed or examined. The history and examination findings are based on the clinical documentation provided and/or discussed with a physician or provider who had personally interviewed and examined the patient. Infectious Diseases-Inpatient eConsult Note SUBJECTIVE Reason for Consult: Patient is a 77 y.o. female admitted 10/19/2023 for whom infectious diseases is eConsulted for: Assist with antibiotics management. History of Present Illness Ms. Major is a 77 y.o. female with a medical history including transverse myelitis demyelinatingdisease with subsequent neurogenic bladder and Cristobal catheter placement, rheumatoid arthritis, heart failure, and chronic sacral wound complicated by osteomyelitis for which she recently completed a course of daptomycin, ceftriaxone, and metronidazole. She presented to the ED with hypoxia with SpO2in the 80%, cough, fever, WBC 15.6, and chest x-ray showing right infrahilar consolidation suspicious for aspiration. Urine culture with yeast. Blood cultures no growth to date. Sputum cultures pending. MRSA nasal swab positive. She was treated with cefepime initially then ceftriaxone and doxycycline. She is now off of oxygen supplementation. OBJECTIVE Admission Weight: 62.2 kg Current Weight: 62.2 kg VITAL SIGNS Temperature: [36 ??C-36.1 ??C] 36 ??C Heart Rate: [67-187] 76 Resp Rate: [14-26] 16 Blood Pressure: (104-154)/(56-64) 154/64 FiO2 (%): [93 %-98 %] 93 % SpO2: [87 %-100 %] 96 % Flow Rate (L/min): [0 L/min-2 L/min] 0 L/min Pulse Rate: [62-76] 62 Intake/Output Summary (Last 24 hours) at 10/20/2023 1217 Last data filed at 10/20/2023 0938 Gross per 24 hour Intake 750 ml Output 2150 ml Net -1400 ml DIAGNOSTICS I have reviewed diagnostics. Studies of note include: Estimated Creatinine Clearance: 109.3 mL/min (A) (by C-G formula based on SCr of 0.43 mg/dL (L)). MEDICATIONS Present anti-infective therapies include cefTRIAXone, 2 g, Daily at bedtime doxycycline, 100 mg, BID before breakfast and dinner miconazole, 1 Application, BID ASSESSMENT / PLAN #1 Chronic Diastolic (Congestive) Heart Failure (HCC) #2 Unspecified Open Wound Right Buttock Initial #3 Other Adrenocortical Insufficiency (HCC) #4 Neurogenic Bladder #5 Arthritis Rheumatoid (HCC) #6 Hypertension Essential Primary #7 Corticosteroid Treatment Snf Systemic #8 Paraplegia ([facility]) #9 Acute Respiratory Failure With Hypoxia ([facility]) #10 Abnormal Urinalysis #11 Fever Of Unknown Origin #12 Pneumonitis Due To Inhalation Of Food And Vomit ([facility]) #13 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 ([facility]) #14 Obstructive Sleep Apnea Adult #15 Infection Urinary Catheter Indwelling Initial ([facility]) #16 Do Not Resuscitate Status #17 Pneumonia At this time we would continue treatment for what appears to be an aspiration pneumonia. I would not add MRSA targeting antibiotics beyond the doxycycline that she has already received. No need to treat the yeast in the urine. RECOMMENDATIONS Continue ceftriaxone and doxycycline to complete a total five day course At discharge could switch to Augmentin and doxycycline We will sign off Bruno Crow M.D., Ph.D. DOG VENDER documented in this encounter Nursing Notes * Margaret Ling R.N. - 10/27/2023 1:23 PM CST Problem: PAIN - ADULT Goal: PT VERBALIZES/DEMONSTRATES ADEQUATE COMFORT LEVEL OR BASELINE Outcome: Progressing Problem: INFECTION - ADULT Goal: Absence of infection during hospitalization Outcome: Progressing Shift Goals: Clinical Goals for the Shift: Promote comfort and complete wound cares Identify possible barriers to meeting goals/advancing plan of care: Anxiety can cause barriers to meeting/advancing in goals End of Shift Summary: Pt is AOx3, call light appropriate, and remains free of falls. Wound cares completed before discharge, she refused to have her wound vac changed. Her condition is stable and pt is discharging. INPATIENT NURSING DISCHARGE SUMMARY Discharge Provider: Camden Munoz M.D. Admission Date: 10/19/2023 Discharge Date: 10/27/2023 10/28/2023 DISCHARGE DISPOSITION [facility] Facility CONDITION AT DISCHARGE stable TREATMENTS BiPAP and wound cares DEVICES/EQUIPMENT BiPAP unit Pts own unit [employer] Nursing MODE OF DISCHARGE Wheelchair TRANSPORTATION Private Vehicle ACCOMPANIED BY Family: Niece All belongings sent home with patient. DOG VENDER * Catarina Downs R.N. - 10/27/2023 4:03 AM CST Shift Goals: Clinical Goals for the Shift: wound care, comfort Identify possible barriers to meeting goals/advancing plan of care: none End of Shift Summary: Patient A/Ox3. Repositioned q2h as tolerated. Pt rated pain 5-8/10 this shiftmanaged with scheduled and PRN medications. Cristobal intact with adequate output. Wound care completedas ordered. Patient plans to discharge back to SNF today pending insurance approval. DOG VENDER * Romina Corcoran R.N. - 10/26/2023 3:50 PM CST Shift Goals: Clinical Goals for the Shift: wound care, comfort Identify possible barriers to meeting goals/advancing plan of care: none End of Shift Summary: Pt A&Ox3, vitally stable. Pt c/o 8/10 pain in her right hip and down her leg, managed with PRN oxy. Wound care complete. Pt last bowl movement was 10/23. Pt requested and wasgiven a suppository this morning. No falls or injuries. Call light appropriate. All needs met at this time, nursing care continues. DOG VENDER * Zoie Butler R.N. - 10/26/2023 4:19 AM CST Shift Goals: Clinical Goals for the Shift: wound care, comfort Problem: SKIN/TISSUE INTEGRITY Goal: Skin/Tissue integrity maintained or improved Outcome: Progressing Problem: SAFETY ADULT Goal: Maintain a safe environment Outcome: Progressing Problem: RESPIRATORY - ADULT Goal: Achieves optimal ventilation and oxygenation Outcome: Progressing Identify possible barriers to meeting goals/advancing plan of care: debility End of Shift Summary: Slept well. Repo every 2 hours. Wound vac patent. Pain controlled with oxycodone. Vitals stable. DOG VENDER * Romina Corcoran R.N. - 10/25/2023 6:08 PM CST Problem: SAFETY ADULT Goal: Maintain a safe environment Outcome: Progressing Problem: PAIN - ADULT Goal: PT VERBALIZES/DEMONSTRATES ADEQUATE COMFORT LEVEL OR BASELINE Outcome: Progressing Shift Goals: Clinical Goals for the Shift: wound care, comfort Identify possible barriers to meeting goals/advancing plan of care: wound care End of Shift Summary: Pt A&Ox3, vitally stable. WOC completed today. Wound VAC dressing changed. C/o 8/10 pain, managed with oxy. No falls or injuries. All needs met at this time, nursing care continues. DOG VENDER * Catarina Downs R.N. - 10/25/2023 6:00 AM CST Shift Goals: Clinical Goals for the Shift: wound care, comfort Identify possible barriers to meeting goals/advancing plan of care: none End of Shift Summary: Patient A/Ox3. Repositioned q2h as tolerated. Pt rated pain 5-8/10 this shiftmanaged with scheduled and PRN medications. Cristobal intact with adequate output. Wound care completedas ordered. Patient plans to discharge back to [facility] pending insurance approval. DOG VENDER * Romina Corcoran R.N. - 10/24/2023 5:00 PM CST Shift Goals: Identify possible barriers to meeting goals/advancing plan of care: wound care End of Shift Summary: pt A&Ox3, vitally stable. Pt c/o 7/10 pain in her wound and down her leg,managed with oxycodone. No falls or injuries. Call light appropriate. All needs met at this time, nursing care continues. DOG VENDER * Catarina Downs R.N. - 10/24/2023 6:35 AM CST Shift Goals: Clinical Goals for the Shift: O2 study for possible discharge. Identify possible barriers to meeting goals/advancing plan of care: none End of Shift Summary: Patient A/Ox3. Repositioned q2h as tolerated. Pt rated pain 4/10 this shift managed with scheduled medications. Wound care completed as ordered. Home O2 study completed overnight. Pt did not require additional O2. Patient plans to discharge pending transportation approval. DOG VENDER * Catarina Downs R.N. - 10/24/2023 5:16 AM CST 10/24/23 0100 10/24/23 0300 Vital Signs SpO2 94 % 95 % Nocturnal O2 study completed. No additional oxygen needs while wearing BiPAP. DOG VENDER * Margaret Ling R.N. - 10/23/2023 11:36 AM CST 10/23/23 1035 Oxygen Therapy SpO2 96 % Pulse Oximetry Type Continuous $Delivery Method Room air FiO2 (%) 96 % Flow Rate (L/min) 0 L/min Home Oxygen Assessment Rest/Awake Room Air SpO2 96 Percent Rest/Awake with Oxygen SpO2 (None needed) Exercise/Activity Room Air SpO2 (NA- para) Continuous pulse oxygen study completed for 5 min. No oxygen needed. DOG VENDER * Harriet Fitzpatrick RRobertoNRoberto - 10/23/2023 5:10 AM CST Problem: PAIN - ADULT Goal: PT VERBALIZES/DEMONSTRATES ADEQUATE COMFORT LEVEL OR BASELINE Outcome: Progressing Problem: SKIN/TISSUE INTEGRITY Goal: Skin/Tissue integrity maintained or improved Outcome: Progressing Shift Goals: Clinical Goals for the Shift: Adequate sleep and repostion q 2hr Identify possible barriers to meeting goals/advancing plan of care: none End of Shift Summary: VSS and A/O X3. Patient remained above O2 SATS levels overnight with CPAP no oxygen bleed. Wound care done as per orders. Patient tolerated repositioning thourought night. All needs met at this time, nursing cares continued. DOG VENDER * Harriet Fitzpatrick R.N. - 10/23/2023 4:20 AM CST 10/23/23 0410 Oxygen Therapy SpO2 96 % Pulse Oximetry Type Continuous $Delivery Method CPAP Flow Rate (L/min) 0 L/min Nocturnal Oxygen Assessment (NSG) Asleep Room Air SpO2 96 Percent (Pt wearing CPAP no O2 bleed) Patient is wearing CPAP with no O2 bleed. Patient was monitored for at least 2 hours. DOG VENDER * Ba Marsh R.N. - 10/22/2023 4:45 PM CST Shift Goals: Clinical Goals for the Shift: Wound, comfort, monitor cardiac rhythm and oxygen Identify possible barriers to meeting goals/advancing plan of care: Motivation End of Shift Summary: Pt Alert and oriented x 3. VSS on 1 L of oxygen at rest. Pt calm and cooperative. C/o pain in back managed with buttocks. Transfers with Dustin and 2 assist. Last BM 10/19/23, bowel meds given. Pt repositions Q2H. Wound vac in place, All wound cares completed. No falls or injury.Call light appropriate. All needs met at this time. Nursing cares continue. Pt completes Incentive Spirometer multiple times on own hourly. Pt also uses Aerobika every hours . Problem: SKIN/TISSUE INTEGRITY Goal: Skin/Tissue integrity maintained or improved Outcome: Progressing Wound vac in place. All wound cares completed per Order. Problem: SAFETY ADULT Goal: Maintain a safe environment Outcome: Progressing Pt maintains safe environment. Bed rails up for pt's comfort. Call light WAR. Problem: RESPIRATORY - ADULT Goal: Achieves optimal ventilation and oxygenation Outcome: Progressing Pt is on 1 L of oxygen. Continuous oxygen and cardiac monitoring in place. DOG VENDER * Ana Agosto R.N. - 10/22/2023 3:25 PM CST 10/22/23 1500 Home Oxygen Assessment Rest/Awake Room Air SpO2 87 Percent Rest/Awake with Oxygen SpO2 92 (1L NC) Exercise/Activity Room Air SpO2 (Patient unable to walk) Exercise/Activity with Oxygen SpO2 (Patient unable to walk) Patient monitored continuously for at least 5 minutes DOG VENDER * Vivi Foote R.N. - 10/22/2023 4:18 AM CST Shift Goals: Clinical Goals for the Shift: Wound, comfort, monitor cardiac rhythm and oxygen Identify possible barriers to meeting goals/advancing plan of care: None End of Shift Summary: Patient remained on room air through this shift. See flowsheets for saturation levels of oxygen. She maintained O2 above 86% on room air while awake and with her CPAP without the oxygen bleed while sleeping. Wound care done per orders and her wounds are improving. Cardiac monitoring was continued through this shift. Patient did have increasing pain controlled with a dose of prn oxycodone at bedtime. VSS DOG VENDER * Anais Gibbs RCarleen - 10/21/2023 3:53 PM CST Shift Goals: Clinical Goals for the Shift: Wound care, comfort, and safety Problem: Compromised Skin Integrity Goal: Incisions, wounds, or drain sites healing without S/S of infection Outcome: Progressing Wound care was provided to pt today and Dr Barber viewed wounds. Problem: PAIN - ADULT Goal: PT VERBALIZES/DEMONSTRATES ADEQUATE COMFORT LEVEL OR BASELINE Outcome: Progressing Pt continued to complain of high pain levels throughout the shift today. Continuing to provide pt with scheduled tylenol and PRN oxy as indicated. Problem: RESPIRATORY - ADULT Goal: Achieves optimal ventilation and oxygenation Outcome: Progressing Pt continues to present with crackles in their lungs. Pt receives nebulizers 3x daily. Identify possible barriers to meeting goals/advancing plan of care: Wound care, mobility End of Shift Summary: Pt A/Ox3, VSS, continues to present with multiple episodes of PSVT - will continue to monitor, pt discharge pending tentatively depending on how her WBC count looks moving forward, nursing will continue to promote optimal skin integrity and optimal respiratory function Anais Gibbs R.N. DOG VENDER * Vivi Foote R.N. - 10/21/2023 4:50 AM CST Shift Goals: Clinical Goals for the Shift: Wound care, comfort, and safety Identify possible barriers to meeting goals/advancing plan of care: Pneumonia, hypoxia, mobility and open wounds End of Shift Summary: Patient remained safe and free from injury this shift. Wound care done per orders. Patient slept from 0000 on and was micro turned without waking her. She did complain of pain and was given scheduled acetaminophen and prn oxycodone prior to wound cares. Oxygen was monitored thr oughout the night and patient had several periods of hypoxia with saturation levels dipping into the low 80's. Patient's CPAP was in use and an oxygen bleed was started at 0.5 and increased to 2L/quileute maintain her oxygen level. Lungs sounds are diminished with fine crackles and no cough present this shift. DOG VENDER * Adelso Schneider R.N. - 10/20/2023 5:39 PM CST Problem: Incontinence and/or Moisture Goal: Skin integrity is maintained or improved Outcome: Progressing Problem: POTENTIAL OR ACTUAL PRESSURE INJURY-ADULT Goal: Nutrient intake appropriate for improving, restoring or maintaining skin integrity Outcome: Progressing Problem: PAIN - ADULT Goal: PT VERBALIZES/DEMONSTRATES ADEQUATE COMFORT LEVEL OR BASELINE Outcome: Progressing Shift Goals: Identify possible barriers to meeting goals/advancing plan of care: wound care, para End of Shift Summary: A&O3, VSS on RA, cooperative. C/o L hip pain 04/21, managed with scheduled/PRN pain meds. Transfers 2A Dustin but pt refused to get out of bed, so repo q2h in bed. Wound care complete - wound vac remained in place. Cristobal cath remained in place. No falls/injury, call light appropriate. All needs met at this time, nursing care continues. Planned discharge on Friday or back to [facility]. DOG VENDER * Ba Marsh R.N. - 10/19/2023 6:52 PM CST Shift Goals: Goals: Promote healing Identify possible barriers to meeting goals/advancing plan of care: Motivation End of Shift Summary: Pt A &O x 3. VSS. Pt has had runs of PSVT today all of which were during wound cares. Pt has multiple wounds to buttocks, see LDA. Wound vac placed at end of shift. Pt does have c/o pain with wound care changes. Pt is on 2 L of oxygen. Pt is calm and cooperative. Pt repositioned Q2H. Pt doesn't want to be repositioned on right side because it causes too much pain. Pt transfers via dustin. Pt has low I/Os. Pt had 3 BM today. No falls / injury during this shift. Pt call light appropriate. All needs met at this time, nursing cares continue. DOG VENDER documented in this encounter Miscellaneous Notes * Hospital Course - Nicole Kaiser M.D. 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 This patient underwent debridement of a perirectal abscess at the [facility] then discharged to a prison in [place]. She reported that she spent about a month there and then developed a respiratory infection which was treated with 5 days of levofloxacin. The patient presented to the emergency room shortly after completing her levofloxacin course, on 10/18/23, with fevers, cough, shortness breath and hypoxia. With no room locally for the patient she was transferred to [place] for acute management. At our facility the patient has been treated with Rocephin and doxycycline. MRSA swab returned positive, but Infectious Disease eConsult was performed, with recommendations not to add vancomycin. Thepatient had a significant elevation in her CRP, a little above 53 at admission. With antibiotics, she was able to wean off of supplemental oxygen and her CRP on 10/22 had dropped down to 12.0. White blood cell count was noted to have been chronically elevated despite clinical and other laboratory evidence suggesting improvement in her infection. It was felt that the patient's elevated CRP was likely secondary to her ongoing issues with her chronic wounds. At the recommendations of our Infectious Disease cosmetic consultant, the patient was converted to oral Augmentin and doxycycline. It was noted thatthe patient had a rash listed as a reaction to piperacillin. On further discussions with the patient this history is questionable at best, and the patient confirms that she has been on amoxicillin, Augmentin and other penicillin-related antibiotics in the recent past with no evidence of allergies. With regards to her chronic wounds, we continued with wound VAC therapy to the chronic right buttock wound, which appeared healthy, 3 cm in diameter and 4 cm in depth with healthy granulation tissue.The perirectal abscess was noted to have Seton in place, it appeared to track proximally 6 cm. No feculent material was noted. Not having calcium alginate at our facility, Aquacel was used in its place as a one-to-one substitution. The patient's wounds were reviewed with our wound care certified physical therapist who thought that wound treatment orders at the patient's SNF in [place] were adequate. No changes other than the therapeutic substitutions at our facility were implemented. Pain continued to be controlled with oxycodone. Given the patient's chronic use of prednisone, the patient stress dosed and then placed on a prednisone taper. She received 30 mg for the 1st time on 10/23/23 and will have her dose reduced by 10 mg every other day until she is back down to her 10 mg daily dose on 10/28. With the patient weaning off of supplemental oxygen and wounds appearing uninfected with appropriate orders, and with patient clinically improved, we elected to discharge the patient back to her nursing home facility on 10/23/23. Unfortunately, though her nursing home facility received regular updates on the plan to discharge on 10/23, they fail to notify the patient's insurance to get acceptance for her return and therefore refused to accept the patient on 10/23. Discharge was able to be arranged on Throughout the patient's hospital stay she would [...] continue, would suggest further evaluation with pulmonology. DOG VENDER documented in this encounter Plan of Treatment Not on file documented as of this encounter Procedures Procedure Name Priority Date/Time Associated Diagnosis Comments DX CHEST PORTABLE 1 VIEW RAD - Routine (most inpatients and all outpatients) 10/27/2023 10:24 AM HOT DOG VENDER URINALYSIS WITH MICROSCOPIC Routine 10/27/2023 10:15 AM HOT DOG VENDER MORPHOLOGY EVALUATION Routine 10/27/2023 6:48 AM HOT DOG VENDER CBC WITH DIFFERENTIAL, B Routine 10/27/2023 6:48 AM HOT DOG VENDER BASIC METABOLIC PANEL, S/P Routine 10/27/2023 6:48 AM HOT DOG VENDER DX CHEST PORTABLE 1 VIEW RAD - Semiurgent (Fast; most ED patients; some inpatients) 10/22/2023 10:53 AM HOT DOG VENDER MORPHOLOGY EVALUATION Routine 10/22/2023 6:19 AM HOT DOG VENDER CBC WITH DIFFERENTIAL, B Routine 10/22/2023 6:19 AM HOT DOG VENDER C-REACTIVE PROTEIN (CRP), S/P Routine 10/22/2023 6:19 AM HOT DOG VENDER MORPHOLOGY EVALUATION Routine 10/21/2023 6:32 AM HOT DOG VENDER CBC WITH DIFFERENTIAL, B Routine 10/21/2023 6:32 AM HOT DOG VENDER BASIC METABOLIC PANEL, S/P Routine 10/21/2023 6:32 AM HOT DOG VENDER MORPHOLOGY EVALUATION Routine 10/20/2023 6:08 AM HOT DOG VENDER CBC WITH DIFFERENTIAL, B Routine 10/20/2023 6:08 AM HOT DOG VENDER C-REACTIVE PROTEIN (CRP), S/P Routine 10/20/2023 6:08 AM HOT DOG VENDER BASIC METABOLIC PANEL, S/P Routine 10/20/2023 6:08 AM HOT DOG VENDER MORPHOLOGY EVALUATION Routine 10/19/2023 4:27 AM HOT DOG VENDER HEPATIC FUNCTION PANEL, S Routine 10/19/2023 4:27 AM HOT DOG VENDER D-DIMER, P Routine 10/19/2023 4:27 AM HOT DOG VENDER CBC WITH DIFFERENTIAL, B Routine 10/19/2023 4:27 AM HOT DOG VENDER C-REACTIVE PROTEIN (CRP), S/P Routine 10/19/2023 4:27 AM HOT DOG VENDER BASIC METABOLIC PANEL, S/P Routine 10/19/2023 4:27 AM HOT DOG VENDER NASAL SCREEN FOR MRSA BY RAPID PCR Routine 10/19/2023 3:35 AM HOT DOG VENDER documented in this encounter Results * DX Chest Portable 1 View (10/27/2023 10:24 AM HOT DOG VENDER) Anatomical Region Laterality Modality Chest, Thoracic RST LOS, Tho racic ARZ LOS, Thoracic FLA LOS N/A Digital Radiography Impressions 10/27/2023 10:34 AM HOT DOG VENDER No acute infiltrates. There is of bibasilar discoid atelectasis as described. Narrative 10/27/2023 10:34 AM HOT DOG VENDER EXAM: DX CHEST PORTABLE 1 VIEW COMPARISON: [...] is of bibasilar discoid atelectasis asdescribed. [place] DIAGNOSTIC IMAGI NG PROCEDURES * (ABNORMAL) Urinalysis with Microscopic: Urine, Indwelling Catheter (10/27/2023 10:15 AM HOT DOG VENDER) Source Urine, Urine, Indwelling Catheter 10/27/2023 10:20 AM HOT DOG VENDER [facility] Clarity Slightly Cloudy(A) Clear 10/27/2023 10:22 AM HOT DOG VENDER [facility] Color Yellow 10/27/2023 10:22 AM HOT DOG VENDER [facility] Comment: ----REFERENCE VALUE---- Colorless Yellow Alana Blood Moderate(A) Negative 10/27/2023 10:22 AM HOT DOG VENDER [facility] Nitrite Negative Negative 10/27/2023 10:22 AM HOT DOG VENDER [facility] Leukocyte Esterase Moderate(A) Negative 10/27/2023 10:22 AM HOT DOG VENDER [facility] Protein Negative mg/dL 10/27/2023 10:22 AM HOT DOG VENDER [facility] Comment: ----REFERENCE VALUE---- Negative Trace Glucose Negative Negative mg/dL 10/27/2023 10:22 AM HOT DOG VENDER [facility] Ketones, QI(U) Negative Negative mg/dL 10/27/2023 10:22 AM HOT DOG VENDER [facility] Bilirubin Negative Negative 10/27/2023 10:22 AM HOT DOG VENDER [facility] pH 5.5 5.0 - 8.0 10/27/2023 10:22 AM HOT DOG VENDER [facility] Specific [place] 1.015 1.001 - 1.035 10/27/2023 10:22 AM HOT DOG VENDER [facility] Urobilinogen 0.2 0.2 - 1.0 mg/dL 10/27/2023 10:22 AM HOT DOG VENDER [facility] White Blood Cells 31-40(A) /hpf 10/27/2023 10:33 AM HOT DOG VENDER [facility] Comment: ----REFERENCE VALUE---- Males: 0-3 Females: 0-10 Unknown: 0-10 Red Blood Cells 11-20(A) 0 - 2 /hpf 10:33 AM HOT DOG VENDER [facility] Dysmorphic Red Blood Cells <=25 <=25 % 10/27/2023 10:33 AM HOT DOG VENDER [facility] Hyaline Casts 1-3 /lpf 10/27/2023 10:33 AM HOT DOG VENDER [facility] Crystals Calcium Oxalate(A) None Seen /lpf 10/27/2023 10:33 AM HOT DOG VENDER [facility] Mucus Present /hpf 10/27/2023 10:33 AM HOT DOG VENDER [facility] Squamous Cells Occ-3 /hpf 10/27/2023 10:33 AM HOT DOG VENDER [facility] Bacteria Present(A) None Seen 10/27/2023 10:33 AM HOT DOG VENDER [facility] Yeast Present(A) None Seen 10/27/2023 10:33 AM HOT DOG VENDER [facility] Urine (Urine, Indwelling Catheter) 10/27/2023 10:15 AM HOT DOG VENDER 10/27/2023 10:20 AM HOT DOG VENDER Camden Munoz M.D. LAB URINE ORDERABLES [facility] [address] [place] [phone], [facility] [place] [address] [place] [phone] * (ABNORMAL) Morphology Evaluation (10/27/2023 6:48 AM HOT DOG VENDER) RBC Morphology See Specific Findings 10/27/2023 7:34 AM HOT DOG VENDER [facility] PLT Morphology Normal 10/27/2023 7:34 AM HOT DOG VENDER [facility] PLT Estimate Adequate Adequate 10/27/2023 7:34 AM HOT DOG VENDER [facility] Anisocytosis Slight(A) 10/27/2023 7:34 AM HOT DOG VENDER [facility] Reactive/Atypica l Lymphocytes Present(A) Not Seen 10/27/2023 7:34 AM HOT DOG VENDER [facility] Hypochromia Slight(A) Not Seen 10/27/2023 7:34 AM HOT DOG VENDER [facility] Blood 10/27/2023 6:48 AM HOT DOG VENDER 10/27/2023 7:04 AM HOT DOG VENDER Nicole Kaiser M.D. LAB BLOOD ADD-ON [facility] [address] [place] [phone], [facility] in [address] [address] * (ABNORMAL) Basic Metabolic Panel (10/27/2023 6:48 AM HOT DOG VENDER) Potassium, P 4.2 3.6 - 5.2 mmol/L 10/27/2023 8:08 AM HOT DOG VENDER [facility] Sodium, P 139 135 - 145 mmol/L 10/27/2023 7:28 AM HOT DOG VENDER [facility] Chloride, P 98 98 - 107 mmol/L 10/27/2023 7:28 AM HOT DOG VENDER [facility] Bicarbonate, P 28 22 - 29 mmol/L 10/27/2023 7:28 AM HOT DOG VENDER [facility] Anion Gap, P 13 7 - 15 10/27/2023 7:28 AM HOT DOG VENDER [facility] BUN (Blood Urea Nitrogen), P 44(H) 6 - 21 mg/dL 10/27/2023 7:28 AM HOT DOG VENDER [facility] Creatinine 0.35(L) 0.59 - 1.04 mg/dL 10/27/2023 7:28 AM HOT DOG VENDER [facility] Estimated GFR (eGFR) >90 >=60 mL/min/BSA 10/27/2023 7:28 AM HOT DOG VENDER [facility] Comment: Estimated GFR calculated using the 2020 CKD_EPI creatinine equation. Calcium, Total, P 10.1 8.8 - 10.2 mg/dL 10/27/2023 7:28 AM HOT DOG VENDER [facility] Glucose, P 117 70 - 140 mg/dL 10/27/2023 7:28 AM HOT DOG VENDER [facility] Blood (Blood, Venous) 10/27/2023 6:48 AM HOT DOG VENDER 10/27/2023 7:04 AM HOT DOG VENDER Nicole Kaiser M.D. LAB BLOOD ADD-ON [facility] [address] [place] [phone], [facility] in [address] [address] * (ABNORMAL) CBC with Differential, Blood (10/27/2023 6:48 AM HOT DOG VENDER) Hemoglobin 14.4 11.6 - 15.0 g/dL 10/27/2023 7:34 AM HOT DOG VENDER [facility] Hematocrit 46.5(H) 35.5 - 44.9 % 10/27/2023 7:34 AM HOT DOG VENDER [facility] Erythrocytes 5.46(H) 3.92 - 5.13 x10(12)/L 10/27/2023 7:34 AM HOT DOG VENDER [facility] MCV 85.2 78.2 - 97.9 fL 10/27/2023 7:34 AM HOT DOG VENDER [facility] RBC Distrib Width 19.9(H) 12.2 - 16.1 % 10/27/2023 7:34 AM HOT DOG VENDER [facility] Platelet Count 293 157 - 371 x10(9)/L 10/27/2023 7:34 AM HOT DOG VENDER [facility] Leukocytes 21.8(H) 3.4 - 9.6 x10(9)/L 10/27/2023 7:34 AM HOT DOG VENDER [facility] Neutrophils 14.70(H) 1.56 - 6.45 x10(9)/L 10/27/2023 7:34 AM HOT DOG VENDER [facility] Lymphocytes 5.51(H) 0.95 - 3.07 x10(9)/L 10/27/2023 7:34 AM HOT DOG VENDER [facility] Monocytes 1.35(H) 0.26 - 0.81 x10(9)/L 10/27/2023 7:34 AM HOT DOG VENDER [facility] Eosinophils 0.09 0.03 - 0.48 x10(9)/L 10/27/2023 7:34 AM HOT DOG VENDER [facility] Basophils 0.10(H) 0.01 - 0.08 x10(9)/L 10/27/2023 7:34 AM HOT DOG VENDER [facility] Blood (Blood, Venous) 10/27/2023 6:48 AM HOT DOG VENDER 10/27/2023 7:04 AM HOT DOG VENDER Nicole Kaiser M.D. LAB BLOOD ADD-ON [facility] [address] [place] [phone], [facility] in [place] [address] [place] [phone] * DX Chest Portable 1 View (10/22/2023 10:53 AM HOT DOG VENDER) Anatomical Region Laterality Modality Chest, Thoracic RST LOS, Tho racic ARZ LOS, Thoracic FLA LOS N/A Digital Radiography Impressions 10/22/2023 10:56 AM HOT DOG VENDER Decreasing infiltrate in the RIGHT lower lobe since October 18. Narrative 10/22/2023 10:56 AM HOT DOG VENDER EXAM: DX CHEST PORTABLE 1 VIEW COMPARISON: Chest x-ray 10/18/2023 FINDINGS: The heart is normal in size. There is subtotal clearing of the infiltrate in the RIGHT lower lobe since October 18. The lungs are otherwise clear. Procedure Note Jeremiah Pollock M.D. - 10/22/2023 EXAM: DX CHEST PORTABLE 1 VIEW COMPARISON: Chest x-ray 10/18/2023 FINDINGS: The heart is normal in size. There is subtotal clearing of theinfiltrate in the RIGHT lower lobe since October 18. The lungs areotherwise clear. IMPRESSION: Decreasing infiltrate in the RIGHT lower lobe since October 18. Williams Barber M.D. IMG DIAGNOSTI C IMAGING PROCEDURES * (ABNORMAL) Morphology Evaluation (10/22/2023 6:19 AM HOT DOG VENDER) RBC Morphology See Specific Findings 10/22/2023 7:09 AM HOT DOG VENDER [facility] PLT Morphology Normal 10/22/2023 7:09 AM HOT DOG VENDER [facility] PLT Estimate Adequate Adequate 10/22/2023 7:09 AM HOT DOG VENDER [facility] Anisocytosis Slight(A) 10/22/2023 7:09 AM HOT DOG VENDER [facility] Microcytosis Slight(A) Not Seen 10/22/2023 7:09 AM HOT DOG VENDER [facility] Blood 10/22/2023 6:19 AM HOT DOG VENDER 10/22/2023 6:39 AM HOT DOG VENDER Williams Barber M.D. LAB BLOOD ADD -ON Performing Organization Address [facility]/ZIP Co de Phone Number [facility] [address] [place] [phone], [facility] in [address] [address] * (ABNORMAL) CRP (C-Reactive Protein) (10/22/2023 6:19 AM HOT DOG VENDER) [facility] C-Reactive Protein (CRP), P 12.0(H) <5.0 mg/L 10/22/2023 7:01 AM HOT DOG VENDER [facility] Blood (Blood, Venous) 10/22/2023 6:19 AM HOT DOG VENDER 10/22/2023 6:39 AM HOT DOG VENDER Williams Barber M.D. LAB BLOOD ADD -ON Performing Organization Address [facility] Co de Phone Number [facility] [address] [place] [phone], [facility] in [address] [address] * (ABNORMAL) CBC with Differential, Blood (10/22/2023 6:19 AM HOT DOG VENDER) Pathologist [facility] Hemoglobin 12.7 11.6 - 15.0 g/dL 10/22/2023 7:02 AM HOT DOG VENDER [facility] Hematocrit 41.2 35.5 - 44.9 % 10/22/2023 7:02 AM HOT DOG VENDER [facility] Erythrocytes 4.85 3.92 - 5.13 x10(12)/L 10/22/2023 7:02 AM HOT DOG VENDER [facility] MCV 84.9 78.2 - 97.9 fL 10/22/2023 7:02 AM HOT DOG VENDER [facility] RBC Distrib Width 19.3(H) 12.2 - 16.1 % 10/22/2023 7:02 AM HOT DOG VENDER [facility] Platelet Count 273 157 - 371 x10(9)/L 10/22/2023 7:02 AM HOT DOG VENDER [facility] Leukocytes 13.9(H) 3.4 - 9.6 x10(9)/L 10/22/2023 7:02 AM HOT DOG VENDER [facility] Neutrophils 9.71(H) 1.56 - 6.45 x10(9)/L 10/22/2023 7:02 AM HOT DOG VENDER [facility] Lymphocytes 2.90 0.95 - 3.07 x10(9)/L 10/22/2023 7:02 AM HOT DOG VENDER [facility] Monocytes 1.21(H) 0.26 - 0.81 x10(9)/L 10/22/2023 7:02 AM HOT DOG VENDER [facility] Eosinophils 0.00(L) 0.03 - 0.48 x10(9)/L 10/22/2023 7:02 AM HOT DOG VENDER [facility] Basophils 0.03 0.01 - 0.08 x10(9)/L 10/22/2023 7:02 AM HOT DOG VENDER [facility] Blood (Blood, Venous) 10/22/2023 6:19 AM HOT DOG VENDER 10/22/2023 6:39 AM HOT DOG VENDER Williams Barber M.D. LAB BLOOD ADD -ON [facility] [address] [place] [address], [facility] [place] [address] * (ABNORMAL) Morphology Evaluation (10/21/2023 6:32 AM HOT DOG VENDER) RBC Morphology See Specific Findings 10/21/2023 7:30 AM HOT DOG VENDER [facility] PLT Morphology Normal 10/21/2023 7:30 AM HOT DOG VENDER [facility] PLT Estimate Adequate Adequate 10/21/2023 7:30 AM HOT DOG VENDER [facility] Anisocytosis Slight(A) 10/21/2023 7:30 AM HOT DOG VENDER [facility] Microcytosis Slight(A) Not Seen 10/21/2023 7:30 AM HOT DOG VENDER [facility] Blood 10/21/2023 6:32 AM HOT DOG VENDER 10/21/2023 6:44 AM HOT DOG VENDER Pancho Burr M.D. LAB BLOOD ADD-ON [facility] [address] [place] [phone], [facility] in [address] [address] * (ABNORMAL) CBC with Differential, Blood (10/21/2023 6:32 AM HOT DOG VENDER) Hemoglobin 12.0 11.6 - 15.0 g/dL 10/21/2023 7:15 AM HOT DOG VENDER [facility] Hematocrit 39.7 35.5 - 44.9 % 10/21/2023 7:15 AM HOT DOG VENDER [facility] Erythrocytes 4.63 3.92 - 5.13 x10(12)/L 10/21/2023 7:15 AM HOT DOG VENDER [facility] MCV 85.7 78.2 - 97.9 fL 10/21/2023 7:15 AM HOT DOG VENDER [facility] RBC Distrib Width 19.3(H) 12.2 - 16.1 % 10/21/2023 7:15 AM HOT DOG VENDER [facility] Platelet Count 260 157 - 371 x10(9)/L 10/21/2023 7:15 AM HOT DOG VENDER [facility] Leukocytes 12.7(H) 3.4 - 9.6 x10(9)/L 10/21/2023 7:15 AM HOT DOG VENDER [facility] Neutrophils 8.59(H) 1.56 - 6.45 x10(9)/L 10/21/2023 7:15 AM HOT DOG VENDER [facility] Lymphocytes 3.13(H) 0.95 - 3.07 x10(9)/L 10/21/2023 7:15 AM HOT DOG VENDER [facility] Monocytes 0.96(H) 0.26 - 0.81 x10(9)/L 10/21/2023 7:15 AM HOT DOG VENDER [facility] Eosinophils 0.01(L) 0.03 - 0.48 x10(9)/L 10/21/2023 7:15 AM HOT DOG VENDER [facility] Basophils 0.01 0.01 - 0.08 x10(9)/L 10/21/2023 7:15 AM HOT DOG VENDER [facility] Blood (Blood, Venous) 10/21/2023 6:32 AM HOT DOG VENDER 10/21/2023 6:44 AM HOT DOG VENDER Pancho Burr M.D. LAB BLOOD ADD-ON Performing Organization Address City/[facility]/ZIP Co de Phone Number [facility] [address] [place] [phone], [facility] in [address] [address] * (ABNORMAL) Basic Metabolic Panel (10/21/2023 6:32 AM HOT DOG VENDER) Potassium, P 4.2 3.6 - 5.2 mmol/L 10/21/2023 7:08 AM HOT DOG VENDER [facility] Sodium, P 137 135 - 145 mmol/L 10/21/2023 7:08 AM HOT DOG VENDER [facility] Chloride, P 97(L) 98 - 107 mmol/L 10/21/2023 7:08 AM HOT DOG VENDER [facility] Bicarbonate, P 30(H) 22 - 29 mmol/L 10/21/2023 7:07 AM HOT DOG VENDER [facility] Anion Gap, P 10 7 - 15 10/21/2023 7:08 AM HOT DOG VENDER [facility] BUN (Blood Urea Nitrogen), P 36(H) 6 - 21 mg/dL 10/21/2023 7:07 AM HOT DOG VENDER [facility] Creatinine 0.37(L) 0.59 - 1.04 mg/dL 10/21/2023 7:07 AM HOT DOG VENDER [facility] Estimated GFR (eGFR) >90 >=60 mL/min/BSA 10/21/2023 7:07 AM HOT DOG VENDER [facility] Comment: Estimated GFR calculated using the 2020 CKD_EPI creatinine equation. Calcium, Total, P 9.1 8.8 - 10.2 mg/dL 10/21/2023 7:07 AM HOT DOG VENDER [facility] Glucose, P 119 70 - 140 mg/dL 10/21/2023 7:07 AM HOT DOG VENDER [facility] Blood (Blood, Venous) 10/21/2023 6:32 AM HOT DOG VENDER 10/21/2023 6:45 AM HOT DOG VENDER Pancho Burr M.D. LAB BLOOD ADD-ON Performing Organization Address City/[facility]/ZIP Co de Phone Number [facility] [address] [place] [phone], [facility] in [address] [address] * (ABNORMAL) Morphology Evaluation (10/20/2023 6:08 AM HOT DOG VENDER) RBC Morphology See Specific Findings 10/20/2023 6:49 AM HOT DOG VENDER [facility] PLT Morphology See Specific Findings 10/20/2023 6:49 AM HOT DOG VENDER [facility] PLT Estimate Adequate Adequate 10/20/2023 6:49 AM HOT DOG VENDER [facility] Anisocytosis Slight(A) 10/20/2023 6:49 AM HOT DOG VENDER [facility] Hypochromia Slight(A) Not Seen 10/20/2023 6:49 AM HOT DOG VENDER [facility] Large PLT Present(A) Not Seen 10/20/2023 6:49 AM HOT DOG VENDER [facility] Blood 10/20/2023 6:08 AM HOT DOG VENDER 10/20/2023 6:16 AM HOT DOG VENDER Pancho Burr M.D. LAB BLOOD ADD-ON [facility] [address] [place] [phone], [facility] in [address] [address] * (ABNORMAL) CRP (C-Reactive Protein) (10/20/2023 6:08 AM HOT DOG VENDER) Pathologist [facility] C-Reactive Protein (CRP), P 49.7(H) <5.0 mg/L 10/20/2023 6:38 AM HOT DOG VENDER [facility] Blood (Blood, Venous) 10/20/2023 6:08 AM HOT DOG VENDER 10/20/2023 6:16 AM HOT DOG VENDER Pancho Burr M.D. LAB BLOOD ADD-ON [facility] [address] [place] [phone], [facility] in [address] [address] * (ABNORMAL) CBC with Differential, Blood (10/20/2023 6:08 AM HOT DOG VENDER) Pathologist [facility] Hemoglobin 11.7 11.6 - 15.0 g/dL 10/20/2023 6:48 AM HOT DOG VENDER [facility] Hematocrit 38.4 35.5 - 44.9 % 10/20/2023 6:48 AM HOT DOG VENDER [facility] Erythrocytes 4.46 3.92 - 5.13 x10(12)/L 10/20/2023 6:48 AM HOT DOG VENDER [facility] MCV 86.1 78.2 - 97.9 fL 10/20/2023 6:48 AM HOT DOG VENDER [facility] RBC Distrib Width 19.5(H) 12.2 - 16.1 % 10/20/2023 6:48 AM HOT DOG VENDER [facility] Platelet Count 239 157 - 371 x10(9)/L 10/20/2023 6:48 AM HOT DOG VENDER [facility] Leukocytes 12.0(H) 3.4 - 9.6 x10(9)/L 10/20/2023 6:48 AM HOT DOG VENDER [facility] Neutrophils 8.70(H) 1.56 - 6.45 x10(9)/L 10/20/2023 6:48 AM HOT DOG VENDER [facility] Lymphocytes 2.52 0.95 - 3.07 x10(9)/L 10/20/2023 6:48 AM HOT DOG VENDER [facility] Monocytes 0.74 0.26 - 0.81 x10(9)/L 10/20/2023 6:48 AM HOT DOG VENDER [facility] Eosinophils 0.01(L) 0.03 - 0.48 x10(9)/L 10/20/2023 6:48 AM HOT DOG VENDER [facility] Basophils 0.02 0.01 - 0.08 x10(9)/L 10/20/2023 6:48 AM HOT DOG VENDER [facility] Blood (Blood, Venous) 10/20/2023 6:08 AM HOT DOG VENDER 10/20/2023 6:16 AM HOT DOG VENDER Pancho Burr M.D. LAB BLOOD ADD-ON [facility] [address] [place] [phone], [facility] in [address] [address] * (ABNORMAL) Basic Metabolic Panel (10/20/2023 6:08 AM HOT DOG VENDER) Potassium, P 4.4 3.6 - 5.2 mmol/L 10/20/2023 6:38 AM HOT DOG VENDER [facility] Sodium, P 139 135 - 145 mmol/L 10/20/2023 6:38 AM HOT DOG VENDER [facility] Chloride, P 98 98 - 107 mmol/L 10/20/2023 6:38 AM HOT DOG VENDER [facility] Bicarbonate, P 31(H) 22 - 29 mmol/L 10/20/2023 6:38 AM HOT DOG VENDER [facility] Anion Gap, P 10 7 - 15 10/20/2023 6:38 AM HOT DOG VENDER [facility] BUN (Blood Urea Nitrogen), P 33(H) 6 - 21 mg/dL 10/20/2023 6:38 AM HOT DOG VENDER [facility] Creatinine 0.43(L) 0.59 - 1.04 mg/dL 10/20/2023 6:38 AM HOT DOG VENDER [facility] Estimated GFR (eGFR) >90 >=60 mL/min/BSA 10/20/2023 6:38 AM HOT DOG VENDER [facility] Comment: Estimated GFR calculated using the 2020 CKD_EPI creatinine equation. Calcium, Total, P 8.9 8.8 - 10.2 mg/dL 10/20/2023 6:38 AM HOT DOG VENDER [facility] Glucose, P 162(H) 70 - 140 mg/dL 10/20/2023 6:38 AM HOT DOG VENDER [facility] Blood (Blood, Venous) 10/20/2023 6:08 AM HOT DOG VENDER 10/20/2023 6:16 AM HOT DOG VENDER Pancho Burr M.D. LAB BLOOD ADD-ON [facility] [address] [place] [phone], [facility] in [address] [address] * (ABNORMAL) Morphology Evaluation (10/19/2023 4:27 AM HOT DOG VENDER) RBC Morphology See Specific Findings 10/19/2023 4:56 AM HOT DOG VENDER [facility] PLT Morphology Normal 10/19/2023 4:56 AM HOT DOG VENDER [facility] PLT Estimate Adequate Adequate 10/19/2023 4:56 AM HOT DOG VENDER [facility] Anisocytosis Moderate(A) 10/19/2023 4:56 AM HOT DOG VENDER [facility] Hypochromia Slight(A) Not Seen 10/19/2023 4:56 AM HOT DOG VENDER [facility] Blood 10/19/2023 4:27 AM HOT DOG VENDER 10/19/2023 4:29 AM HOT DOG VENDER Pancho Burr M.D. LAB BLOOD ADD-ON Performing Organization Address City/[facility]/ZIP Co de Phone Number [facility] [address] [place] [phone], [facility] in [address] [address] * (ABNORMAL) Hepatic Function Panel (10/19/2023 4:27 AM HOT DOG VENDER) Bilirubin, Total, P 0.4 0.0 - 1.2 mg/dL 10/19/2023 4:49 AM HOT DOG VENDER [facility] Bilirubin, Direct, P <0.2 0.0 - 0.3 mg/dL 10/19/2023 4:49 AM HOT DOG VENDER [facility] Aspartate Aminotransferase (AST), P 38 8 - 43 U/L 10/19/2023 4:49 AM HOT DOG VENDER [facility] Alanine Aminotransferase (ALT), P 17 7 - 45 U/L 10/19/2023 4:49 AM HOT DOG VENDER [facility] Alkaline Phosphatase, P 148(H) 35 - 104 U/L 10/19/2023 4:49 AM HOT DOG VENDER [facility] Albumin, P 3.1(L) 3.5 - 5.0 g/dL 10/19/2023 4:49 AM HOT DOG VENDER [facility] Protein, Total, P 5.0(L) 6.3 - 7.9 g/dL 10/19/2023 4:49 AM HOT DOG VENDER [facility] Blood (Blood, Venous) 10/19/2023 4:27 AM HOT DOG VENDER 10/19/2023 4:29 AM HOT DOG VENDER Pancho Burr M.D. LAB BLOOD ADD-ON Performing Organization Address City/[facility]/ZIP Co de Phone Number [facility] [address] [place] [phone], [facility] in [address] [address] * (ABNORMAL) CRP (C-Reactive Protein) (10/19/2023 4:27 AM HOT DOG VENDER) [facility] C-Reactive Protein (CRP), P 53.4(H) <5.0 mg/L 10/19/2023 4:49 AM HOT DOG VENDER [facility] Blood (Blood, Venous) 10/19/2023 4:27 AM HOT DOG VENDER 10/19/2023 4:29 AM HOT DOG VENDER Pancho Burr M.D. LAB BLOOD ADD-ON [facility] [address] [place] [phone], [facility] in [address] [address] * (ABNORMAL) CBC with Differential, Blood (10/19/2023 4:27 AM HOT DOG VENDER) [facility] Hemoglobin 11.3(L) 11.6 - 15.0 g/dL 10/19/2023 4:56 AM HOT DOG VENDER [facility] Hematocrit 37.3 35.5 - 44.9 % 10/19/2023 4:56 AM HOT DOG VENDER [facility] Erythrocytes 4.37 3.92 - 5.13 x10(12)/L 10/19/2023 4:56 AM HOT DOG VENDER [facility] MCV 85.4 78.2 - 97.9 fL 10/19/2023 4:56 AM HOT DOG VENDER [facility] RBC Distrib Width 19.2(H) 12.2 - 16.1 % 10/19/2023 4:56 AM HOT DOG VENDER [facility] Platelet Count 249 157 - 371 x10(9)/L 10/19/2023 4:56 AM HOT DOG VENDER [facility] Leukocytes 16.0(H) 3.4 - 9.6 x10(9)/L 10/19/2023 4:56 AM HOT DOG VENDER [facility] Neutrophils 12.40(H) 1.56 - 6.45 x10(9)/L 10/19/2023 4:56 AM HOT DOG VENDER [facility] Lymphocytes 2.71 0.95 - 3.07 x10(9)/L 10/19/2023 4:56 AM HOT DOG VENDER [facility] Monocytes 0.84(H) 0.26 - 0.81 x10(9)/L 10/19/2023 4:56 AM HOT DOG VENDER [facility] Eosinophils 0.02(L) 0.03 - 0.48 x10(9)/L 10/19/2023 4:56 AM HOT DOG VENDER [facility] Basophils 0.03 0.01 - 0.08 x10(9)/L 10/19/2023 4:56 AM HOT DOG VENDER [facility] Blood (Blood, Venous) 10/19/2023 4:27 AM HOT DOG VENDER 10/19/2023 4:29 AM HOT DOG VENDER Pancho Burr M.D. LAB BLOOD ADD-ON [facility] [address] [place] [phone], [facility] in [address] [address] * (ABNORMAL) Basic Metabolic Panel (10/19/2023 4:27 AM HOT DOG VENDER) Potassium, P 3.6 3.6 - 5.2 mmol/L 10/19/2023 4:49 AM HOT DOG VENDER [facility] Sodium, P 135 135 - 145 mmol/L 10/19/2023 4:49 AM HOT DOG VENDER [facility] Chloride, P 95(L) 98 - 107 mmol/L 10/19/2023 4:49 AM HOT DOG VENDER [facility] Bicarbonate, P 30(H) 22 - 29 mmol/L 10/19/2023 4:49 AM HOT DOG VENDER [facility] Anion Gap, P 10 7 - 15 10/19/2023 4:49 AM HOT DOG VENDER [facility] BUN (Blood Urea Nitrogen), P 23(H) 6 - 21 mg/dL 10/19/2023 4:49 AM HOT DOG VENDER [facility] Creatinine 0.37(L) 0.59 - 1.04 mg/dL 10/19/2023 4:49 AM HOT DOG VENDER [facility] Estimated GFR (eGFR) >90 >=60 mL/min/BSA 10/19/2023 4:49 AM HOT DOG VENDER [facility] Comment: Estimated GFR calculated using the 2020 CKD_EPI creatinine equation. Calcium, Total, P 8.3(L) 8.8 - 10.2 mg/dL 10/19/2023 4:49 AM HOT DOG VENDER [facility] Glucose, P 129 70 - 140 mg/dL 10/19/2023 4:49 AM HOT DOG VENDER [facility] Blood (Blood, Venous) 10/19/2023 4:27 AM HOT DOG VENDER 10/19/2023 4:29 AM HOT DOG VENDER Pancho Burr M.D. LAB BLOOD ADD-ON Performing Organization Address City/[facility]/ZIP Co de Phone Number [facility] [address] [place] [phone], [facility] in [address] [address] * (ABNORMAL) D-Dimer (10/19/2023 4:27 AM HOT DOG VENDER) D-Dimer, P 3988(H) <=500 ng/mL FEU 10/19/2023 4:46 AM HOT DOG VENDER [facility] Comment: D-dimer concentrations increase with age. [...] (PE). Blood (Blood, Venous) 10/19/2023 4:27 AM HOT DOG VENDER 10/19/2023 4:29 AM HOT DOG VENDER Pancho Burr M.D. LAB BLOOD ADD-ON Performing Organization Address [facility]/ZIP Co de Phone Number [facility] [address] [place] [phone], [facility] in [address] [address] * (ABNORMAL) MRSA PCR, Nasal (10/19/2023 3:35 AM HOT DOG VENDER) MRSA Screen, Nasal by PCR Positive(A ) Negative 10/19/2023 5:28 PM HOT DOG VENDER MKTO Semi-Urgent This is a semi-urgen t result(FLEMING) [facility] Swab (Nares) 10/19/2023 3:35 AM HOT DOG VENDER 10/19/2023 4:22 PM HOT DOG VENDER Pancho Burr M.D. LAB MICROBIOLOGY - GENERAL ORDERABLES [facility] [address] [place] [address], 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) Chronic Diastolic (Congestive) Heart Failure (HCC) Abnormal Urinalysis Unspecified Open Wound Right Buttock Initial Fever Of Unknown Origin Pneumonitis Due To Inhalation Of Food And Vomit (HCC) 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) Obstructive Sleep Apnea Adult Infection Urinary Catheter Indwelling Initial (HCC) Do Not Resuscitate Status Pneumonia documented in this encounter Admitting Diagnoses Diagnosis Pneumonia documented in this encounter Administered Medications Inactive Administered Medications - up to 3 most recent administrations Medication Order MAR Action Action Date Dose Rate Site acetaminophen tablet 1,000 mg (TYLENOL) 1,000 mg, oral, 3 times daily, First dose on Fri10/19/23 at 0900 Given 10/27/2023 8:07 AM HOT DOG VENDER 1,000 mg Given 10/26/2023 8:20 PM HOT DOG VENDER 1,000 mg Given 10/26/2023 1:37 PM HOT DOG VENDER 1,000 mg amoxicillin-pot clavulanate 875-125 mg per tablet 1 tablet (AUGMENTIN) 1 tablet, oral, 2 times daily with meals, First dose on Fri10/22/23 at 1015, For 8 doses, Drug Monitoring Program: Pharmacist to adjust medication dosing based on indication and drug clearance factors., Indications: Respiratory tract infection, community acquired Given 10/25/2023 4:10 PM HOT DOG VENDER 1 tablet Given 10/25/2023 8:50 AM HOT DOG VENDER 1 tablet Given 10/24/2023 4:01 PM HOT DOG VENDER 1 tablet ascorbic acid (vitamin C) tablet 1,000 mg (VITAMIN C) 1,000 mg, oral, Daily, First dose on Fri10/19/23 at 0900 Given 10/27/2023 8:07 AM HOT DOG VENDER 1,000 mg Given 10/26/2023 9:04 AM HOT DOG VENDER 1,000 mg Given 10/25/2023 8:52 AM HOT DOG VENDER 1,000 mg benzonatate capsule 100 mg (TESSALON PERLES) 100 mg, oral, 4 times daily, First dose (after last modification) on Fri10/19/23 at 1330, Swallow whole. Do NOT crush, chew or open capsule. Given 10/19/2023 9:44 PM HOT DOG VENDER 100 mg Given 10/19/2023 4:16 PM HOT DOG VENDER 100 mg Given 10/19/2023 1:20 PM HOT DOG VENDER 100 mg benzonatate capsule 100 mg (TESSALON PERLES) 100 mg, oral, 3 times daily PRN, cough, Starting on Fri10/21/23 at 1145, Swallow whole. Do NOT crush, chew or open capsule. bisacodyL suppository 10 mg (DULCOLAX) 10 mg, rectal, 2 times daily PRN, constipation, Starting on Fri10/19/23 at 0212 Given 10/26/2023 9:05 AM HOT DOG VENDER 10 mg Given 10/22/2023 1:26 PM HOT DOG VENDER 10 mg carboxymethylcellulose 0.5 % ophthalmic solution 1 drop (REFRESH PLUS) 1 drop, both eyes, 3 times daily PRN, dry eyes, Starting on 10/25/23 at 1121 Given 10/25/2023 4:13 PM HOT DOG VENDER 1 drop ceFEPIme injection 2 g (MAXIPIME) 2 g, intravenous, Every 12 hours, First dose on Fri10/19/23 at 0900, For 9 doses, If needed, reconstitute vial per package insert instructions. See IVAG for administration guidelines., Drug Monitoring Program: Pharmacist to adjust medication dosing based on indication and drug clearance factors., Indications: Pneumonia Given 10/19/2023 9:01 AM HOT DOG VENDER 2 g cefTRIAXone injection 2 g (ROCEPHIN) 2 g, intravenous, Daily at bedtime, First dose on Fri10/19/23 at 2115, If needed, reconstitute vial per package insert instructions. See IVAG for administration guidelines., Drug Monitoring Program: Pharmacist to adjust medication dosing based on indication and drug clearance factors., Indications: Aspiration pneumonia Given 10/21/2023 8:28 PM HOT DOG VENDER 2 g Given 10/20/2023 8:31 PM HOT DOG VENDER 2 g Given 10/19/2023 9:43 PM HOT DOG VENDER 2 g doxycycline 100 mg in NaCl 0.9% IVPB (VIBRAMYCIN) 100 mg, intravenous, at 100 mL/hr, Administer over 60 Minutes, Every 12 hours, First dose on Fri10/19/23 at 0900, For 9 doses, Mini-Bag Plus bag, Indications: Pnemonia Rate/Dose Change 10/20/2023 8:25 AM HOT DOG VENDER 75 mL /hr New Bag 10/20/2023 8:10 AM HOT DOG VENDER 100 mg 100 mL/hr New Bag 10/19/2023 9:44 PM HOT DOG VENDER 100 mg 100 mL/hr doxycycline monohydrate tablet 100 mg (ADOXA) 100 mg, oral, 2 times daily before breakfast and dinner, First dose on Fri10/20/23 at 1600, For 6 doses, Administer 2 hours before or 6 hours after taking magnesium, aluminum (antacids, laxatives) or calcium and iron supplements (multivitamins). Ensure patient remains upright for 30 minutes post-dose., Indications: Respiratory tract infection, community acquired Given 10/23/2023 6:39 AM HOT DOG VENDER 100 mg Given 10/22/2023 4:01 PM HOT DOG VENDER 100 mg Given 10/22/2023 6:17 AM HOT DOG VENDER 100 mg furosemide tablet 40 mg (LASIX) 40 mg, oral, Daily, First dose (after last modification) on Fri10/25/23 at 0900 Given 10/27/2023 8:07 AM HOT DOG VENDER 40 mg Given 10/26/2023 9:05 AM HOT DOG VENDER 40 mg Given 10/25/2023 8:51 AM HOT DOG VENDER 40 mg furosemide tablet 50 mg (LASIX) 50 mg, oral, 2 times daily, First dose on Fri10/19/23 at 0900 Given 10/24/2023 8:31 AM HOT DOG VENDER 50 mg Given 10/23/2023 5:31 PM HOT DOG VENDER 50 mg Given 10/23/2023 8:18 AM HOT DOG VENDER 50 mg gabapentin capsule 300 mg (NEURONTIN) 300 mg, oral, 3 times daily, First dose on Fri10/19/23 at 0900 Given 10/27/2023 8:07 AM HOT DOG VENDER 300 mg Given 10/26/2023 8:20 PM HOT DOG VENDER 300 mg Given 10/26/2023 1:37 PM HOT DOG VENDER 300 mg ipratropium 0.02 % nebulizer solution 500 mcg (ATROVENT) 500 mcg (0.5 mg), nebulization, Every 6 hours scheduled, First dose on Fri10/20/23 at 0000 Given 10/21/2023 6:27 AM HOT DOG VENDER 500 mcg Given 10/21/2023 12:15 AM HOT DOG VENDER 500 mcg Given 10/20/2023 6:34 PM HOT DOG VENDER 500 mcg ipratropium 0.02 % nebulizer solution 500 mcg (ATROVENT) 500 mcg (0.5 mg), nebulization, 3 times daily (RT), First dose (after last modification) on Fri10/21/23 at 1300 Given 10/27/2023 6:15 AM HOT DOG VENDER 500 mcg Given 10/26/2023 6:17 PM HOT DOG VENDER 500 mcg Given 10/26/2023 12:00 PM HOT DOG VENDER 500 mcg ipratropium-albuteroL 0.5-2.5 mg/3 mL nebulizer solution 3 mL (DUONEB) 3 mL, nebulization, Every 6 hours scheduled, First dose on Fri10/19/23 at 0600 Given 10/19/2023 11:32 AM HOT DOG VENDER 3 mL Given 10/19/2023 6:37 AM HOT DOG VENDER 3 mL metoprolol succinate 24 hr tablet 50 mg (TOPROL-XL) 50 mg, oral, Daily, First dose on Fri10/19/23 at 0900, Do NOT crush or chew. Tablet may be split on score if needed. Given 10/19/2023 8:49 AM HOT DOG VENDER 50 mg metoprolol succinate 24 hr tablet 50 mg (TOPROL-XL) 50 mg, oral, Daily, First dose on Fri10/20/23 at 0900, Hypertension Do NOT crush or chew. Tablet may be split on score if needed. Given 10/27/2023 8:07 AM HOT DOG VENDER 50 m g Given 10/26/2023 9:04 AM HOT DOG VENDER 50 mg Given 10/25/2023 8:50 AM HOT DOG VENDER 50 mg miconazole 2 % powder 1 Application (MICATIN) 1 Application, topical, 2 times daily, First dose on Fri10/19/23 at 0900, Apply to skin folds and groin Given 10/27/2023 8:08 AM HOT DOG VENDER 1 Application Given 10/26/2023 8:21 PM HOT DOG VENDER 1 Application Given 10/26/2023 9:10 AM HOT DOG VENDER 1 Application oxyCODONE IR tablet 10 mg (ROXICODONE) 10 mg, oral, Once, On Merry 10/23/23 at 1730, For 1 dose Given 10/23/2023 5:31 PM HOT DOG VENDER 10 mg oxyCODONE IR tablet 5 mg (ROXICODONE) 5 mg, oral, Every 4 hours PRN, moderate pain or score 4-6 of 10, severe pain or score 7-10 of 10, Hold for sedation., Starting on Fri10/19/23 at 0212, Indications: Chronic Pain/Nonacute Pain Given 10/19/2023 12:30 PM HOT DOG VENDER 5 mg Given 10/19/2023 7:21 AM HOT DOG VENDER 5 mg oxyCODONE IR tablet 5 mg (ROXICODONE) 5 mg, oral, Once, On Fri10/19/23 at 1715, For 1 dose, To help with wound VAC application. Given 10/19/2023 5:21 PM HOT DOG VENDER 5 mg oxyCODONE IR tablet 5 mg (ROXICODONE) 5 mg, oral, Every 4 hours PRN, moderate pain or score 4-6 of 10, severe pain or score 7-10 of 10, Please give oxycodone about 30 minutes before wound cares. Hold for sedation., Starting on Fri10/19/23 at 1653, Indications: Chronic Pain/Nonacute Pain Given 10/27/2023 11:53 AM HOT DOG VENDER 5 mg Given 10/27/2023 1:04 AM HOT DOG VENDER 5 mg Given 10/26/2023 8:20 PM HOT DOG VENDER [address] tablet 40 mg (PROTONIX) 40 mg, oral, 2 times daily before breakfast and dinner, First dose on Fri10/19/23 at 0700, pantoprazole 40 mg oral twice daily was interchanged for omeprazole 20 or 40 mg oral twice daily Swallow whole. Do NOT crush, chew, or split tablet. Given 10/27/2023 6:15 AM HOT DOG VENDER 40 mg Given 10/26/2023 4:08 PM HOT DOG VENDER 40 mg Given 10/26/2023 6:36 AM HOT DOG VENDER 40 mg pediatric gixnvrysdsut-gskd-jcjdcaeh chewable tablet 1 tablet (FLINTSTONES COMPLETE) 1 tablet, oral, Daily, First dose on 10/19/23 at 0900 Given 10/27/2023 8:07 AM HOT DOG VENDER 1 tablet Given 10/26/2023 9:04 AM HOT DOG VENDER 1 tablet Given 10/25/2023 8:50 AM HOT DOG VENDER 1 tablet potassium chloride ER tablet 20 mEq (KLORCON/K-TAB) 20 mEq, oral, 3 times daily with meals, First dose on 10/19/23 at 0800, potassium chloride orderable was interchanged for potassium chloride tablet/capsule Swallow whole. Do NOT crush, chew, or split tablet. Given 10/27/2023 11:53 AM HOT DOG VENDER 20 mEq Given 10/27/2023 8:07 AM HOT DOG VENDER 20 mEq Given 10/26/2023 4:08 PM HOT DOG VENDER 20 mEq predniSONE tablet 10 mg (DELTASONE) 10 mg, oral, Daily, First dose on 10/19/23 at 0900 Given 10/19/2023 8:49 AM HOT DOG VENDER 10 mg predniSONE tablet 10 mg (DELTASONE) 10 mg, oral, Daily, First dose (after last modification) on 10/28/23 at 0900, Rheumatoid arthritis and adrenal insufficiency. predniSONE tablet 20 mg (DELTASONE) 20 mg, oral, Daily, First dose on 10/25/23 at 0900, For 2 doses Given 10/26/2023 9:04 AM HOT DOG VENDER 20 mg Given 10/25/2023 8:52 AM HOT DOG VENDER 20 mg predniSONE tablet 25 mg (DELTASONE) 25 mg, oral, Once, On 10/19/23 at 1645, For 1 dose, Part of stress steroid regimen given pneumonia. Given 10/19/2023 5:03 PM HOT DOG VENDER 25 mg predniSONE tablet 30 mg (DELTASONE) 30 mg, oral, Daily, First dose on Merry 10/23/23 at 0900, For 2 doses Given 10/24/2023 8:31 AM HOT DOG VENDER 30 mg Given 10/23/2023 8:17 AM HOT DOG VENDER 30 mg predniSONE tablet 40 mg (DELTASONE) 40 mg, oral, Daily, First dose on Fri10/20/23 at 0900, For 3 doses, Stress steroid regimen. Given 10/22/2023 8:2 3 AM HOT DOG VENDER 40 mg Given 10/21/2023 8:40 AM HOT DOG VENDER 40 mg Given 10/20/2023 8:10 AM HOT DOG VENDER 40 mg zinc sulfate capsule 220 mg (ZINCATE) 220 mg, oral, Daily with breakfast, First dose on 10/19/23 at 0800, Doses listed in zinc sulfate. Each 220 mg of zinc sulfate contains 50 mg of elemental zinc. Given 10/27/2023 8:07 AM HOT DOG VENDER 220 mg Given 10/26/2023 9:04 AM HOT DOG VENDER 220 mg Given 10/25/2023 8:51 AM HOT DOG VENDER 220 mg documented in this encounter Active and Recently Administered Medications Times are shown in HOT DOG VENDER. Scheduled Medication Order 10/25/2023 10/26/2023 10/27/2023 acetaminophen tablet 1,000 mg (TYLENOL) 1,000 mg, oral, 3 times daily, First dose on 10/19/23 at 0900 0850 (Given - Provider: Romina Corcoran R.N.)1300 (Given - Provider: Romina Corcoran R.N.)2002 (Given - Provider: Jessica Bui RBimal.) 0904 (Given - Provider: Romina Corcoran R.N.)1337 (Given - Provider: Romina Corcoran R.N.)2020 (Given - Provider: Catarina Downs RRobertoN.) 0807 (Given - Provider: Margaret Ling RRobertoN.)1400 (Due) amoxicillin-pot clavulanate 875-125 mg per tablet 1 tablet (AUGMENTIN) (COMPLETED) 1 tablet, oral, 2 times daily with meals, First dose on Fri10/22/23 at 1015, For 8 doses, Drug Monitoring Program: Pharmacist to adjust medication dosing based on indication and drug clearance factors., Indications: Respiratory tract infection, community acquired 0850 (Given - Provider: Romina Corcoran R.N.)1610 (Given - Provider: Romina Corcoran R.N.) ascorbic acid (vitamin C) tablet 1,000 mg (VITAMIN C) 1,000 mg, oral, Daily, First dose on 10/19/23 at 0900 0852 (Given - Provider: Romina Corcoran R.N.) 0904 (Given - Provider: Romina Corcoran R.N.) 0807 (Given - Provider: Margaret Ling R.N.) furosemide tablet 40 mg (LASIX) 40 mg, oral, Daily, First dose (after last modification) on Fri10/25/23 at 0900 0851 (Given - Provider: Romina Corcoran R.N.) 0905 (Given - Provider: Romina Corcoran R.N.) 0807 (Given - Provider: Margaret Ling R.N.) gabapentin capsule 300 mg (NEURONTIN) 300 mg, oral, 3 times daily, First dose on 10/19/23 at 0900 0852 (Given - Provider: Romina Corcoran R.N.)1300 (Given - Provider: Romina Corcoran R.N.)2001 (Given - Provider: Jessica Bui R.N.) 0905 (Given - Provider: Romina Corcoran R.N.)1337 (Given - Provider: Romina Corcoran R.N.)2020 (Given - Provider: Catarina Downs R.N.) 0807 (Given - Provider: Margaret Ling R.N.)1400 (Due) ipratropium 0.02 % nebulizer solution 500 mcg (ATROVENT) 500 mcg (0.5 mg), nebulization, 3 times daily (RT), First dose (after last modification) on Fri10/21/23 at 1300 0623 (Given - Provider: Catarina Downs RRobertoNRoberto)1300 (Given - Provider: Romina Corcoran R.N.)1817 (Given - Provider: Romina Corcoran R.N.) 0637 (Given - Provider: Zoie Butler RRobertoNRoberto)1200 (Given - Provider: Romina Corcoran R.N.)1817 (Given - Provider: Romina Corcoran R.N.) 0615 (Given - Provider: Catarina Downs RRobertoNRoberto)1300 (Due) metoprolol succinate 24 hr tablet 50 mg (TOPROL-XL) 50 mg, oral, Daily, First dose on Fri10/20/23 at 0900, Hypertension Do NOT crush or chew. Tablet may be split on score if needed. 0850 (Given - Provider: Romina Corcoran R.N.) 0904 (Given - Provider: Romina Corcoran R.N.) 0807 (Given - Provider: Margaret Ling R.N.) miconazole 2 % powder 1 Application (MICATIN) 1 Application, topical, 2 times daily, First dose on 10/19/23 at 0900, Apply to skin folds and groin 0855 (Given - Provider: Romina Corcoran R.N.)2001 (Given - Provider: Jessica Bui R.N.) 0910 (Given - Provider: Romina Corcoran R.N.)2020 (Given - Provider: Catarina Downs R.N.) 0808 (Given - Provider: Margaret Ling R.N.) pantoprazole DR tablet 40 mg (PROTONIX) 40 mg, oral, 2 times daily before breakfast and dinner, First dose on 10/19/23 at 0700, pantoprazole 40 mg oral twice daily was interchanged for omeprazole 20 or 40 mg oral twice daily Swallow whole. Do NOT crush, chew, or split tablet. 0623 (Given - Provider: Bill VelasquezN.)1610 (Given - Provider: Romina Corcoran R.N.) 0636 (Given - Provider: Zoie Butler RRobertoNRoberto)1608 (Given - Provider: Romina Corcoran R.N.) 0615 (Given - Provider: Catarina Downs RRobertoN.) pediatric fwuqutmkmjnm-[id number] als chewable tablet 1 tablet (FLINTSTONES COMPLETE) 1 tablet, oral, Daily, First dose on 10/19/23 at 0900 0850 (Given - Provider: Romina Corcoran R.N.) 0904 (Given - Provider: Romina Corcoran R.N.) 0807 (Given - Provider: Margaret Ling R.N.) potassium chloride ER tablet 20 mEq (KLORCON/K-TAB) 20 mEq, oral, 3 times daily with meals, First dose on 10/19/23 at 0800, potassium chloride orderable was interchanged for potassium chloride tablet/capsule Swallow whole. Do NOT crush, chew, or split tablet. 0851 (Given - Provider: Romina Corcoran R.N.)1102 (Given - Provider: Adelso Schneider R.N.)1610 (Given - Provider: Romina Corcoran R.N.) 0904 (Given - Provider: Romina Corcoran R.N.)1159 (Given - Provider: Romina Corcoran R.N.)1608 (Given - Provider: Romina Corcoran R.N.) 0807 (Given - Provider: Margaret Ling R.N.)1153 (Given - Provider: Margaret Ling R.N.) predniSONE tablet 10 mg (DELTASONE) 10 mg, oral, Daily, First dose (after last modification) on Fri10/28/23 at 0900, Rheumatoid arthritis and adrenal insufficiency. predniSONE tablet 20 mg (DELTASONE) (COMPLETED)(Linked Group 1) 20 mg, oral, Daily, First dose on Fri10/25/23 at 0900, For 2 doses 0852 (Given - Provider: Romina Corcoran R.N.) 0904 (Given - Provider: Romina Corcoran R.N.) zinc sulfate capsule 220 mg (ZINCATE) 220 mg, oral, Daily with breakfast, First dose on 10/19/23 at 0800, Doses listed in zinc sulfate. Each 220 mg of zinc sulfate contains 50 mg of elemental zinc. 0851 (Given - Provider: Romina Corcoran R.N.) 0904 (Given - Provider: Romina Corcoran R.N.) 0807 (Given - Provider: Margaret Ling R.N.) PRN Medication Order 10/25/2023 10/26/2023 10/27/2023 benzonatate capsule 100 mg (TESSALON PERLES) 100 mg, oral, 3 times daily PRN, cough, Starting on Fri10/21/23 at 1145, Swallow whole. Do NOT crush, chew or open capsule. bisacodyL suppository 10 mg (DULCOLAX) 10 mg, rectal, 2 times daily PRN, constipation, Starting on 10/19/23 at 0212 0905 (Given - Provider: Romina Corcoran R.N.) carboxymethylcellulose 0.5 % ophthalmic solution 1 drop (REFRESH PLUS) 1 drop, both eyes, 3 times daily PRN, dry eyes, Starting on 10/25/23 at 1121 1613 (Given - Provider: Bill JaimesN.) loperamide capsule 2 mg (IMODIUM A-D) 2 mg, oral, 4 times daily PRN, diarrhea, Starting on 10/19/23 at 0212, loperamide (IMODIUM A-D) orderable was interchanged for the loperamide (IMODIUM A-D) tablet/capsule oxyCODONE IR tablet 5 mg (ROXICODONE) 5 mg, oral, Every 4 hours PRN, moderate pain or score 4-6 of 10, severe pain or score 7-10 of 10, Please give oxycodone about 30 minutes before wound cares. Hold for sedation., Starting on 10/19/23 at 1653, Indications: Chronic Pain/Nonacute Pain 0852 (Given - Provider: Romina Corcoran R.N.)1417 (Given - Provider: Romina Corcoran R.N.)2002 (Given - Provider: Jessica Bui RRobertoN.) 0636 (Given - Provider: Zoie Butelr RRobertoN.)1340 (Given - Provider: Romina Corcoran R.N.)2020 (Given - Provider: Catarina Downs R.N.) 0104 (Given - Provider: Zoie Butler RRobertoN.)1153 (Given - Provider: Margaret Ling RRobertoN.) Linked Groups Order Group 1: predniSONE tablet 40 mg (DELTASONE) (COMPLETED) 40 mg, oral, Daily, First dose on 10/20/23 at 0900, For 3 doses, Stress steroid regimen. Followed by predniSONE tablet 30 mg (DELTASONE) (COMPLETED) 30 mg, oral, Daily, First dose on Merry 10/23/23 at 0900, For 2 doses Followed by predniSONE tablet 20 mg (DELTASONE) (COMPLETED)Jump to med 20 mg, oral, Daily, First dose on 10/25/23 at 0900, For 2 doses documented in this encounter Care Teams Tug Boat Captain Relationship Specialty Start Date End Date Osiris Otero APRN, C.N.P., R.N. [address] [place] [address] PCP - General Family Medicine 09/17/23 12/08/23 documented as of this encounter
--- OUTSIDE RECORDS SUMMARY | 2024-01-16 12:06 | XMS_ITS | Encounter Summary ---
Author Name Unknown Organization [facility] Address [address] [place] [address] Care Team Providers Care Gourmet Coffee Attendant Name Role Phone Osiris Otero APRN, C.N.P., R.N. Primary Care Provider Encounter Details Date Type Department Care Team (Late st Contact Info) Description 10/14/2023 Orders Only [facility] [place] [address] [place] [phone] Osiris Otero APRN, C.N.P., R.N. [address] [place] [phone] Social History Tobacco Use Types Packs/Day Years Used Date Smoking Tobacco: Never Smokeless Tobacco: Never Alcohol Use Standard Drinks/Week Comments Defer 0 (1 standard drink = 0.6 oz pur e alcohol) Nutrition Answer Date Recorded Nutrition: EVOO Fat Source Unknown 09/17 Nutrition: Servings of Fruits/Vegetables per Day Not on file 09/17/2023 Dental Answer Date Recorded Dental: Regular Dentist Unknown 09/17/20 23 Sex and Gender Information Value Date Recorded Sex Assigned at Not on file Gender Identity Not on file Sexual Orientation Not on file documented as of this encounter Plan of Treatment Not on file documented as of this encounter Visit Diagnoses Not on filedocumented in this encounter Care Teams Gourmet Coffee Attendant Relationship Specialty Start Date End Date Osiris Otero APRN, C.N.P., R.N. [address] [place] [address] PCP - General Family Medicine 09/17/23 12/08/23 documented as of this encounter
--- OUTSIDE RECORDS SUMMARY | 2024-01-16 12:06 | XMS_ITS | Encounter Summary ---
Author Name Unknown Organization [facility] Address [address] [place] [address] Care Team Providers Care Crate Icer Name Role Phone Elsewhere, Pcp Primary Care Provider Unavailabl e Encounter Details Date Type Department Care Team (Latest Contact Info) Description 10/18/2023 Intake [facility] Social History Tobacco Use Types Packs/Day Years Used Date Smoking Tobacco: Never Smokeless Tobacco: Never Alcohol Use Standard Drinks/Week Comments Defer 0 (1 standard drink = 0.6 oz pur e alcohol) [facility] Utilities Answer Date Recorded In the past 12 months has e electric, gas, oil, or water [employer] threatened to shut off services in your [...] your living situation today? I have a [facility] place to live 10/19/2023 Sex and Gender Information Value Date Recorded Sex Assigned at Not on file Gender Identity Not on file Sexual Orientation Not on file documented as of this encounter Plan of Treatment Not on file documented as of this encounter Visit Diagnoses Not on filedocumented in this encounter Additional Health Concerns Infection Onset Date Last Indicated Resolved Time COVID19 Pending 10/18/2023 10/18/2023 10/18/2023 9 :11 PM MANAGER BUDGET COVID19 11/13/2023 11/13/2023 12/03/2023 5:55 AM MANAGER BUDGET documented as of this encounter Care Teams Crate Icer Relationship Specialty Start Date End Date Elsewhere, Pcp PCP - General Internal Medicine 12/09/23 documented as of this encounter
--- OUTSIDE RECORDS SUMMARY | 2024-01-16 12:06 | XMS_ITS | Encounter Summary ---
Author Name Unknown Organization [facility] Address [address] [place] [address] Care Team Providers Care Doughnut Icer Name Role Phone Osiris Otero APRN, C.N.P., R.N. Primary Care Provider Encounter Details Date Type Department Care Team (Latest Contact Info) Description 10/14/2023 11:30 AM CHRONIC CONDITION NURSE External Outreach [facility] [place] [address] [place] [phone] Osiris Otero APRN, C.N.P., R.N. [address] [place] [phone] Cough Acute (Primary Dx); Paraplegia (HCC); Arthritis Rheumatoid (HCC); Acute On Chronic Diastolic (Congestive) Heart Failure (HCC); Atrial Fibrillation Unspecified (HCC); Other Adrenocortical Insufficiency (HCC) Social History Tobacco Use Types Packs/Day [...] Sign Reading Time Taken Comments Blood Pressure 128/82 10/14/2023 7:48 AM CHRONIC CONDITION NURSE Pulse 99 10/14/2023 7:48 AM CHRONIC CONDITION NURSE Temperature 36.2 ??C (97.2 ??F) 10/14/2023 7:48 AM CS T Respiratory Rate 18 10/14/2023 7:48 AM CHRONIC CONDITION NURSE Oxygen Saturation 93% 10/14/2023 7:48 AM CHRONIC CONDITION NURSE Inhaled Oxygen Concentration - - Weight 62.1 kg (136 lb 12.8 oz) 10/14/2023 7:48 AM CHRONIC CONDITION NURSE Height - - Body Mass Index - - documented in this encounter Progress Notes * Osiris Otero, AMIRAH, C.N.P., R.N. - 10/14/2023 11:30 AM CST CHIEF COMPLAINT / REASON FOR VISIT The resident is being seen at [place], [place] for Follow up Visit Visit Type: In Person Face-to- Face visit SUBJECTIVE HISTORY OF PRESENT ILLNESS Obtained from Patient, Nursing, and SBAR: Patient was hospitalized at [facility] from 08/28/2023 through 09/17/2023, she has a history of paraplegia since age 6, has chronic indwelling Cristobal catheter. She is unable to walk and requires a Dustin lift. She developed a perirectal abscess and required incision and drainage, originally had seton placement which is now removed. Bone biopsy of the right ischial tuberosity was negative. She received 14 days of IV antibiotics. Patient also needs to wear a BiPAP at night due to severe obstructive sleep apnea. She is followed by [facility] emergency department wound care provider. Patient is seen in her room for follow-up. Last week patient was noted to have loose cough. She hadgained some weight last week and her Lasix was increased. Chest x-ray was negative, influenza, COVID and RSV was also negative. She was started on Levaquin for 5 days due to elevated white blood cellcount with cough. Patient is seen in her room, she has no longer requiring oxygen. Her vital signs have been stable. She is 93% on room air. She says she is feeling better. Nebulizers were ordered over the weekend which have been effective. She has not coughing anything up but does have a loose congested cough but she feels his in her throat. She does not have any chest pain or shortness a breath. She is wearing her BiPAP at night but at times it is difficult to wear when she is coughing. I personally reviewed the most recent following items: clinical notes, lab results, imaging reports The following medical problems were actively reviewed (including updating overview sections as necessary) and addressed as part of today's visit: Diagnosis Overview 1. Acute On Chronic Diastolic (Congestive) Heart Failure (HCC) 2. Other Adrenocortical Insufficiency (HCC) 3. Atrial Fibrillation Unspecified (HCC) 4. Arthritis Rheumatoid (HCC) 5. Paraplegia (HCC) CODE STATUS: FULL CODE REVIEW OF SYSTEMS Complete review of systems was performed, as allowable by patient's cognitive status, and incorporating collateral history if applicable. Relevant positives are noted elsewhere in this note, otherwise negative. OBJECTIVE Vital signs provided by facility: BP 128/82 Pulse 99 Temp 36.2 ??C Resp 18 Wt 62.1 kg SpO2 93% PHYSICAL EXAM Vitals reviewed. Constitutional General: She is not in acute distress. Appearance: Normal appearance. HENT Head: Normocephalic. Nose: Nose normal. No congestion or rhinorrhea. Eyes Conjunctiva/sclera: Conjunctivae normal. Cardiovascular Rate and Rhythm: Normal rate and regular rhythm. Heart sounds: Normal heart sounds. Pulmonary Effort: Pulmonary effort is normal. No respiratory distress. Breath sounds: Normal breath sounds. Comments: Loose, congested cough Abdominal General: Bowel sounds are normal. Palpations: [...] and present management will be continued. #1 Arthritis Rheumatoid (HCC) Prednisone daily #2 Acute On Chronic Diastolic (Congestive) Heart Failure (HCC) Will add 40 mg of Lasix at noon and keeps 60 mg in the morning, BMP next week. #3 Atrial Fibrillation Unspecified (HCC) Metoprolol #4 Other Adrenocortical Insufficiency (HCC) Prednisone #5 Cough Acute Continue Levaquin, white blood cell count has decreased today, continue duo nebs through 10/19/2022, Tessalon Perles 100 mg 3 times a day as needed for cough #6 Paraplegia (HCC) Continue current cares, she does require a Dustin lift. Did encourage patient to get out of bed today and she states she will try to do this. PATIENT EDUCATION Ready to learn, no apparent learning barriers were identified; learning preferences include listening. Explained diagnosis and treatment plan; patient/child/caregiver expressed understanding of the content. Billing based on: Medical decision-making. See clinical note for justification. Any additional supporting information is noted below. NIC CONDITION NURSE documented in this encounter Plan of Treatment Not on file documented as of this encounter Visit Diagnoses Diagnosis Cough Acute- Primary Paraplegia (HCC) Arthritis Rheumatoid (HCC) Acute On Chronic Diastolic (Congestive) Heart Failure (HCC) Atrial Fibrillation Unspecified (HCC) Other Adrenocortical Insufficiency (HCC) documented in this encounter Care Teams Doughnut Icer Relationship Specialty Start Date End Date Osiris Otero APRN, Mars.N.P., R.N. [address] [place] [address] PCP - General Family Medicine 09/17/23 12/08/23 documented as of this encounter
--- OUTSIDE RECORDS SUMMARY | 2024-01-16 12:06 | XMS_ITS | Encounter Summary ---
Author Name Unknown Organization [facility] Address [address] [place] [address] Care Team Providers Care Stock Puller Name Role Phone Osiris Otero APRN, C.N.P., R.N. Primary Care Provider Encounter Details Date Type Department Care Team (Latest Contact Info) Description 10/14/2023 1:45 AM BEE WORKER - 10/14/2023 11:59 PM [facility] Hospital Encounter Department of Laboratory Medicine in [place], [place] [address] [place] [address] Osiris Otero APRN, C.N.P., R.N. [address] [place] [phone] Leukocytosis Discharge Disposition: Home or Self Care Social [...] 3 (three) times a day. 0 09/19/2023 bisacodyL (DULCOLAX) 10 mg suppository Insert 10 mg into the rectum 2 (two) times a day as needed for constipation. 0 gabapentin (NEURONTIN) 300 mg capsule Take 300 mg by mouth 3 (three) times a day. 0 09/17/2023 Lactobacillus acidophilus 100 million cell capsule Take 1 capsule by mouth daily. In evening 0 09/17/2023 multivitamin tablet Take 1 tablet by mouth daily. 0 09/17/2023 omeprazole (PriLOSEC) [address] capsule Take 20 mg by mouth 2 (two) times a day before breakfast and dinner. 0 09/18/2023 triamcinolone (KENALOG) 0.1 % ointment Apply 1 Application topically 2 (two) times a day as needed for rash. 0 09/17/2023 zinc sulfate (ZINCATE) 220 (50 mg zinc) capsule Take 100 mg by mouth daily. 0 09/18/2023 levoFLOXacin (LEVAQUIN) 750 mg tablet Take 1 tablet (750 mg total) by mouth every morning before breakfast for 5 days. 5 tablet 0 10/10/2023 10/15/2023 benzonatate (TESSALON PERLES) 100 mg capsule Take [...] onic Pain/Nonacute Pain Indication: Chronic Pain/Nonacute Pain. Four times daily as needed (at least 4 hours apart) 42 tablet 0 10/14/2023 10/17/2023 potassium chloride (KLOR-CON M/KDUR) 20 mEq ER [...] Procedure Name Priority Date/Time Associated Diagnosis Comments MORPHOLOGY EVALUATION Routine 10/14/2023 7:10 AM BEE WORKER CBC WITH DIFFERENTIAL, B Routine 10/14/2023 7:10 AM BEE WORKER Leukocytosis documented in this encounter Results * (ABNORMAL) Morphology Evaluation (10/14/2023 7:10 AM BEE WORKER) RBC Morphology See Specific Findings 10/14/2023 9:26 AM BEE WORKER NPRG PLT Morphology Normal 10/14/2023 9:26 AM BEE WORKER NPRG PLT Estimate Adequate Adequate 10/14/2023 9:26 AM BEE WORKER NPRG Anisocytosis Moderate(A) 10/14/2023 9:26 AM BEE WORKER NPRG Reactive/Atypica l Lymphocytes Present(A) Not Seen 10/14/2023 9:26 AM BEE WORKER NPRG Blood 10/14/2023 7:10 AM BEE WORKER 10/14/2023 8:39 AM BEE WORKER Osiris Otero APRN, C.N.P., R.N. LAB B LOOD ADD-ON [facility][NOTE 3] LAB [address] [place] [address], [facility] NPRG [place] [address] [address] [place] [address] * (ABNORMAL) CBC with Differential, Blood (10/14/2023 7:10 AM BEE WORKER) Hemoglobin 11.8 11.6 - 15.0 g/dL 10/14/2023 9:26 AM BEE WORKER NPRG Hematocrit 39.8 35.5 - 44.9 % 10/14/2023 9:26 AM BEE WORKER NPRG Erythrocytes 4.56 3.92 - 5.13 x10(12)/L 10/14/2023 9:26 AM BEE WORKER NPRG MCV 87.3 78.2 - 97.9 fL 10/14/2023 9:26 AM BEE WORKER NPRG RBC Distrib Width 18.9(H) 12.2 - 16.1 % 10/14/2023 9:26 AM BEE WORKER NPRG Platelet Count 322 157 - 371 x10(9)/L 10/14/2023 9:26 AM BEE WORKER NPRG Leukocytes 15.4(H) 3.4 - 9.6 x10(9)/L 10/14/2023 9:26 AM BEE WORKER NPRG Neutrophils 7.13(H) 1.56 - 6.45 x10(9)/L 10/14/2023 9:26 AM BEE WORKER NPRG Lymphocytes 6.76(H) 0.95 - 3.07 x10(9)/L 10/14/2023 9:26 AM BEE WORKER NPRG Monocytes 1.30(H) 0.26 - 0.81 x10(9)/L 10/14/2023 9:26 AM BEE WORKER NPRG Eosinophils 0.17 0.03 - 0.48 x10(9)/L 10/14/2023 9:26 AM BEE WORKER NPRG Basophils 0.02 0.01 - 0.08 x10(9)/L 10/14/2023 9:26 AM BEE WORKER NPRG Blood (Blood, Venous) 10/14/2023 7:10 AM BEE WORKER 10/14/2023 8:39 AM BEE WORKER Osiris Otero APRN, C.N.P., R.N. LAB B LOOD ADD-ON [facility] [address] [place] [address], [facility] NPRG [facility] [address] [place] [address] documented in this encounter Visit Diagnoses Diagnosis Leukocytosis documented in this encounter Care Teams Stock Puller Relationship Specialty Start Date End Date Osiris Otero APRN, C.N.P., R.N. [address] [place] [address] PCP - General Family Medicine 09/17/23 12/08/23 documented as of this encounter
--- OUTSIDE RECORDS SUMMARY | 2024-01-16 12:06 | XMS_ITS | Encounter Summary ---
Author Name Unknown Organization [facility] Address [address] [place] [address] Care Team Providers Care Ecotherapist Name Role Phone ShannaFransisca lopezOsirisdilcia Doe APRN, C.N.P., R.N. Primary Care Provider Encounter Details Date Type Department Care Team (Late st Contact Info) Description 10/13/2023 Clinical Communication [facility] [place] [address] [place] [address] Leatha Palacios APRN, C.N.P. [address] [place] [address] Social History Tobacco Use Types Packs/Day Years Used Date Smoking Tobacco: Never Smokeless Tobacco: Never Alcohol Use Standard Drinks/Week Comments Defer 0 (1 standard drink = 0.6 oz pur e alcohol) [facility] Utilities Answer Date Recorded In the past 12 months has K[employer], gas, oil, or water [employer] threatened to shut off services in your [...] your living situation today? I have a [facility] place to live 10/19/2023 Sex and Gender Information Value Date Recorded Sex Assigned at Not on file Gender Identity Not on file Sexual Orientation Not on file documented as of this encounter Miscellaneous Notes * Telephone Encounter - Leatha Palacios APRN, C.N.P. - 10/13/2023 1:54 PM CST [facility] called with report that patient is coughing and having shortness of breath. Oxygen sats have remained greater than 90% room air or on CPAP during the night. Patient was started Levaquin on Friday. Chest x-ray was performed on the did not show any signs and symptoms of CHF or pneumonia. What testing was negative for COVID RSV influenza a and B. White count came back elevated at Lab Results Component Value Date WBC 19.1 (H) 10/10/2023 HGB 12.0 10/10/2023 HCT 40.9 10/10/2023 MCV 88.1 10/10/2023 PLT 310 10/10/2023 Lasix was increased to 60 mg daily for increased weight. Weight on the was 132.1 and now she is 136.8 lb. She is being weighed with a Dustin lift. Lung sounds are reported to have rales in the left lower lobe. Order given to start DuoNebs and 2 continue with the Levaquin that was ordered on Friday. She has had 2 doses. provider to re eval tomorrow. Call instrumentation engineer provider if condition changes. [employer] MILL OPERATOR documented in this encounter Plan of Treatment Not on file documented as of this encounter Visit Diagnoses Not on filedocumented in this encounter Additional Health Concerns Infection Onset Date Last Indicated Resolved Time COVID19 Pending 10/18/2023 10/18/2023 10/18/2023 9 :11 PM SLUDGE MILL OPERATOR documented as of this encounter Care Teams Ecotherapist Relationship Specialty Start Date End Date Osiris Otero APRN, C.N.P., R.N. [address] [place] [address] PCP - General Family Medicine 09/17/23 12/08/23 documented as of this encounter
--- OUTSIDE RECORDS SUMMARY | 2024-01-16 12:06 | XMS_ITS | Encounter Summary ---
Author Name Unknown Organization [facility] Address [address] [place] [address] Care Team Providers Care Assistant Professor Of Archaeology Name Role Phone ShannaFransisca lopezOsirisdilcia Doe APRN, C.N.P., R.N. Primary Care Provider Reason for Visit * Reason Comments Fever Resident of [facility]. Staff noted fever today accompanied with hypoxia. Noted to have room air saturations in the 80's. Encounter Details Date Type Department Care Team (Late st Contact Info) Description 10/18/2023 8:38 PM FERTILIZER SUPERVISOR - 10/19/2023 12:[address] [facility] Emergency [place] [facility] [address] [place] [phone] Iam Herrera D.O. [address] [place] [phone] Pneumonia (Primary Dx); Hypoxia Discharge Disposition: Acute Care Hospital Social History Tobacco Use Types Packs/Day Years Used Date Smoking Tobacco: Never Smokeless Tobacco: Never Alcohol Use Standard Drinks/Week Comments Defer 0 (1 standard drink = 0.6 oz pur e alcohol) [facility] Utilities Answer Date Recorded In the past [...] your living situation today? I have a [facility] place to live 10/19/2023 Sex and Gender Information Value Date Recorded Sex Assigned at Not on file Gender Identity Not on file Sexual Orientation Not on file documented as of this encounter Last Filed Vital Signs Vital Sign Reading Time Taken Comments Blood Pressure 105/47 10/19/2023 12:26 AM FERTILIZER SUPERVISOR Pulse 97 10/19/2023 12:26 AM FERTILIZER SUPERVISOR Temperature 36.5 ??C (97.7 ??F) 10/19/2023 12:[address] Respiratory Rate 16 10/19/2023 12:26 AM FERTILIZER SUPERVISOR Oxygen Saturation 98% 10/19/2023 12:26 AM FERTILIZER SUPERVISOR Inhaled Oxygen Concentration - - Weight 62.2 kg (137 lb 2 oz) 10/18/2023 8:31 PM FERTILIZER SUPERVISOR Height - - Body Mass Index - - documented in this encounter Medications at Time [...] 09/18/2023 10/27/2023 documented as of this encounter ED Notes * Iam Herrera D.O. - 10/18/2023 8:29 PM CST SUBJECTIVE CHIEF COMPLAINT/REASON FOR VISIT Fever (Resident of [facility]. Staff noted fever today accompanied with hypoxia. 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 Per EMS, pt was found to be febrile today at her nursing facility with hypoxia to the 80's, not normally on oxygen. Pt reports she hs had productive cough. Denies any shortness of breath, chest pain, abdominal pain, vomiting/diarrhea. History provided by: Patient reference librarian needed/used: no REVIEW OF SYSTEMS Constitutional: Positive for fever. HENT: Negative for congestion. Respiratory: Positive for cough. Gastrointestinal: Negative for abdominal pain, diarrhea, nausea and vomiting. Genitourinary: Negative for flank pain. Musculoskeletal: Negative for back pain. Skin: Negative for wound. Neurological: Negative for weakness and headaches. All other systems reviewed and are negative. OBJECTIVE Initial Vitals Temp Pulse Heart Rate Resp BP SpO2 Pain Score PHYSICAL EXAMINATION Constitutional: Nursing note and vitals reviewed. No distress. HENT: Head: Normocephalic and atraumatic. Nose: Nose normal. No nasal discharge. Mouth/Throat: Mucous membranes are moist. Eyes: Conjunctivae and EOM are normal. Pupils are equal, round, and reactive to light. Cardiovascular: Normal rate and regular rhythm. Exam reveals no gallop and no friction rub. Pulmonary/Chest: Effort normal. There is normal air entry. No tachypnea. No respiratory distress. She has no wheezes. She has no rhonchi. She has no rales. Abdominal: Soft. exhibits no distension. There is no abdominal tenderness. There is no rebound and no guarding. Genitourinary: Genitourinary Comments: Delacruz catheter in place Musculoskeletal: General: No tenderness. Cervical back: Normal range of motion. Comments: paraplegia Neurological: Alert and oriented to person, place, and time. She is not disoriented. Skin: Skin is warm and dry. She is not diaphoretic. Psychiatric: She has a normal mood and affect. Behavior is normal. 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 See HPI for details. Pt febrile, VSS on arrival to ED, on 2 LPM NC On exam, pt in NAD, no respiratory distress, speaking in full sentences Labs resulted with leukocytosis of 15, lactate within normal limits, COVID/flu/RSV negative CXR with right infrahilar consolidation suggesting pneumonia Pt given IVF, covered with cefepime and doxycycline Discussed with patient and daughter lab and imaging results as well as plan for hospital stay givenpneumonia, hypoxia. Patient daughter in agreement. Unfortunately no beds available locally. Case discussed with ATC and patient kindly accepted [place]. Patient daughter in agreement with transfer. . DIFFERENTIAL DIAGNOSES Includes but not limited to: Pneumonia, viral URI, COVID/flu/RSV, CHF, urinary tract infection, dehydration, electrolyte abnormality. Final Diagnoses: as of 10/18/23 2241 Pneumonia Hypoxia Iam Herrera D.O. 10/19/23 0115 ILIZER SUPERVISOR documented in this encounter Miscellaneous Notes * Result Encounter Note - Alison Graves M.D., M.P.H. - 10/21/2023 9:05 AM CST Sending to inpatient team in [place] where patient was transferred. Please review. Thank you. Alison Graves M.D., M.P.H. 10/21/23 0905 ILIZER SUPERVISOR documented in this encounter Plan of Treatment Not on file documented as of this encounter Procedures Procedure Name Priority Date/Time Associated Diagnosis Comments NT-PRO B-TYPE NATRIURETIC PEPTIDE (BNP), S STAT 10/18/2023 11:48 PM FERTILIZER SUPERVISOR ECG Routine 10/18/2023 11:32 PM FERTILIZER SUPERVISOR BACTERIAL CULTURE, AEROBIC + SUSC, URINE Routine 10/18/2023 9:14 PM FERTILIZER SUPERVISOR URINALYSIS WITH MICROSCOPIC Routine 10/18/2023 9:14 PM FERTILIZER SUPERVISOR DX CHEST PORTABLE 1 VIEW RAD - Semiurgent (Fast; most ED patients; some inpatients) 10/18/2023 9:01 PM FERTILIZER SUPERVISOR LACTATE FOR SEPSIS WITH REFLEX STAT 10/18/2023 8:46 PM FERTILIZER SUPERVISOR BACTERIA / LUCY CULTURE, BLOOD STAT 10/18/2023 8:46 PM FERTILIZER SUPERVISOR BACTERIA / LUCY CULTURE, BLOOD STAT 10/18/2023 8:46 PM FERTILIZER SUPERVISOR CBC WITH DIFFERENTIAL, B STAT 10/18/2023 8:46 PM FERTILIZER SUPERVISOR BASIC METABOLIC PANEL, S/P STAT 10/18/2023 8:46 PM FERTILIZER SUPERVISOR INFLUENZA A, B, RSV, PCR, POCT STAT 10/18/2023 8:35 PM FERTILIZER SUPERVISOR SARS CORONAVIRUS 2, PCR RAPID, V STAT 10/18/2023 8:28 PM FERTILIZER SUPERVISOR documented in this encounter Results * (ABNORMAL) NT-Pro B-Type Natriuretic Peptide (BNP) (10/18/2023 11:48 PM FERTILIZER SUPERVISOR) NT-Pro BNP 589(H) <=540 pg/mL 10/19/2023 12:23 AM FERTILIZER SUPERVISOR NPRG Comment: NT-proBNP values less than 300 [...] failure. Blood (Blood, Venous) 10/18/2023 11:48 PM FERTILIZER SUPERVISOR 10/18/2023 11:59 PM FERTILIZER SUPERVISOR Iam Herrera D.O. LAB BLOOD ADD-ON Performing Organization Address City/[facility]/ZIP Co de Phone Number [facility] [address] [place] [address], [place] NPRG [facility] [address] [place] [address] * ECG 12 Lead (10/18/2023 11:32 PM FERTILIZER SUPERVISOR) Ventricular Rate ECG/Min 101 BPM MUSE KS Interval 140 ms MUSE QRSD Interval 72 ms MUSE QT Interval 326 ms MUSE QTC Interval 422 ms MUSE P Kite 58 degrees MUSE R Kite 18 degrees MUSE T Wave Kite 57 degrees MUSE 10/18/2023 11:3 2 PM FERTILIZER SUPERVISOR 10/18/2023 11:52 PM FERTILIZER SUPERVISOR Impressions MUSE - 10/18/2023 11:52 PM FERTILIZER SUPERVISOR Sinus tachycardia Nonspecific T wave abnormality No previous ECGs available Reviewed by ANGELITO Allen Narrative Procedure Note Roshan East M.D., Ph.D. - 10/18/2023 IMPRESSION: Sinus tachycardia Nonspecific T wave abnormality No previous ECGs available Reviewed by ANGELITO Allen Iam Herrera D.O. ECG ORDERABLES Performing Organization Address City/[facility]/ZIP Co de Phone Number MUSE NA * (ABNORMAL) Bacterial Culture, Aerobic + Susceptibility, Urine (10/18/2023 9:14 PM FERTILIZER SUPERVISOR) Urine Culture YEAST >100,000 cfu/mL (A) 10/20/2023 12:11 PM FERTILIZER SUPERVISOR MKTO Comment:No further identific ation Urine (Urine, Indwelling Catheter) 10/18/2023 9:14 PM FERTILIZER SUPERVISOR 10/19/2023 4:21 PM FERTILIZER SUPERVISOR Comment:Specimen Source Site : Urine Iam Herrera D.O. LAB MICROBIOLOGY - G ENERAL ORDERABLES [facility] [address] [place] [address], [facility] MKTO [facility] [place] [address] [place] [address] * (ABNORMAL) Urinalysis with Microscopic: Urine, Midstream (10/18/2023 9:14 PM FERTILIZER SUPERVISOR) Source Urine, Urine, Midstream 10/18/2023 9:29 PM FERTILIZER SUPERVISOR NPRG Clarity Slightly Cloudy(A) Clear 10/18/2023 9:31 PM FERTILIZER SUPERVISOR NPRG Color Yellow 10/18/2023 9:31 PM FERTILIZER SUPERVISOR NPRG Comment: ----REFERENCE VALUE---- Colorless Yellow Alana Blood Trace(A) Negative 10/18/2023 9:31 PM FERTILIZER SUPERVISOR NPRG Nitrite Negative Negative 10/18/2023 9:31 PM FERTILIZER SUPERVISOR NPRG Leukocyte Esterase Small(A) Negative 10/18/2023 9:31 PM FERTILIZER SUPERVISOR NPRG Protein Negative mg/dL 10/18/2023 9:31 PM FERTILIZER SUPERVISOR NPRG Comment: ----REFERENCE VALUE---- Negative Trace Glucose Negative Negative mg/dL 10/18/2023 9:31 PM FERTILIZER SUPERVISOR NPRG Ketones, QI(U) Negative Negative mg/dL 10/18/2023 9:31 PM FERTILIZER SUPERVISOR NPRG Bilirubin Negative Negative 10/18/2023 9:31 PM FERTILIZER SUPERVISOR NPRG pH 5.0 5.0 - 8.0 10/18/2023 9:31 PM FERTILIZER SUPERVISOR NPRG Specific Mohawk 1.015 1.001 - 1.035 10/18/2023 9:31 PM FERTILIZER SUPERVISOR NPRG Urobilinogen 0.2 0.2 - 1.0 mg/dL 10/18/2023 9:31 PM FERTILIZER SUPERVISOR NPRG White Blood Cells >100(A) /hpf 10/18/2023 9:38 PM FERTILIZER SUPERVISOR NPRG Comment: ----REFERENCE VALUE---- Males: 0-3 Females: 0-10 Unknown: 0-10 Red Blood Cells 3-10(A) 0 - 2 /hpf 9:38 PM FERTILIZER SUPERVISOR NPRG Dysmorphic Red Blood Cells <=25 <=25 % 10/18/2023 9:38 PM FERTILIZER SUPERVISOR NPRG Bacteria Present(A) None Seen 10/18/2023 9:38 PM FERTILIZER SUPERVISOR NPRG Yeast Present(A) None Seen 10/18/2023 9:38 PM FERTILIZER SUPERVISOR NPRG Urine (Urine, Midstream) 10/18/2023 9:14 PM FERTILIZER SUPERVISOR 10/18/2023 9:29 PM FERTILIZER SUPERVISOR Iam Herrera D.O. LAB URINE ORDERABLES [facility] [address] [place] [address], [facility] NPRG [facility] [address] [place] [address] * DX Chest Portable 1 View (10/18/2023 9:01 PM FERTILIZER SUPERVISOR) Anatomical Region Laterality Modality Chest, Thoracic RST LOS, Tho racic ARZ LOS, Thoracic FLA LOS N/A Computed Radiography Impressions 10/18/2023 9:03 PM FERTILIZER SUPERVISOR Right infrahilar consolidation suggesting pneumonia, suspect aspiration sequela. Negative for pleural effusion. Thoracolumbar instrumented postsurgical change. Narrative 10/18/2023 9:03 PM FERTILIZER SUPERVISOR EXAM: DX CHEST PORTABLE 1 VIEW Procedure Note Bib bAel M.D. - 10/18/2023 EXAM: DX CHEST PORTABLE 1 VIEW IMPRESSION: Right infrahilar consolidation suggesting pneumonia, suspect aspirationsequela. Negative for pleural effusion. Thoracolumbar instrumentedpostsurgical change. Iam Herrera D.O. IMG DIAGNOSTIC IMAGI NG PROCEDURES * (ABNORMAL) Basic Metabolic Panel (10/18/2023 8:46 PM FERTILIZER SUPERVISOR) Potassium, P 4.2 3.6 - 5.2 mmol/L 10/18/2023 9:14 PM FERTILIZER SUPERVISOR NPRG Sodium, P 136 135 - 145 mmol/L 10/18/2023 9:14 PM FERTILIZER SUPERVISOR NPRG Chloride, P 92(L) 98 - 107 mmol/L 10/18/2023 9:14 PM FERTILIZER SUPERVISOR NPRG Bicarbonate, P 33(H) 22 - 29 mmol/L 10/18/2023 9:14 PM FERTILIZER SUPERVISOR NPRG Anion Gap, P 11 7 - 15 10/18/2023 9:14 PM FERTILIZER SUPERVISOR NPRG BUN (Blood Urea Nitrogen), P 20 6 - 21 mg/dL 10/18/2023 9:14 PM FERTILIZER SUPERVISOR NPRG Creatinine 0.40(L) 0.59 - 1.04 mg/dL 10/18/2023 9:14 PM FERTILIZER SUPERVISOR NPRG Estimated GFR (eGFR) >90 >=60 mL/min/BSA 10/18/2023 9:14 PM FERTILIZER SUPERVISOR NPRG Comment: Estimated GFR calculated using the 2020 CKD_EPI creatinine equation. Calcium, Total, P 8.9 8.8 - 10.2 mg/dL 10/18/2023 9:14 PM FERTILIZER SUPERVISOR NPRG Glucose, P 106 70 - 140 mg/dL 10/18/2023 9:14 PM FERTILIZER SUPERVISOR NPRG Blood (Blood, Venous) 10/18/2023 8:46 PM FERTILIZER SUPERVISOR 10/18/2023 8:49 PM FERTILIZER SUPERVISOR Iam Herrera D.O. LAB BLOOD ADD-ON [facility] [address] [place] [address], [facility] NPRG [facility] [address] [place] [address] * Lactate for Sepsis with Reflex (10/18/2023 8:46 PM FERTILIZER SUPERVISOR) Lactate, P 1.8 0.5 - 2.2 mmol/L 10/18/2023 9:12 PM FERTILIZER SUPERVISOR NPRG Blood (Blood, Venous) 10/18/2023 8:46 PM FERTILIZER SUPERVISOR 10/18/2023 8:49 PM FERTILIZER SUPERVISOR Iam Herrera D.O. LAB BLOOD NON ADD-ON [facility] [address] [place] [address], [facility] [place] [address] [address] [place] [address] * Bacteria / Lucy Culture, Blood #2 (10/18/2023 8:46 PM FERTILIZER SUPERVISOR) Bacteria/Herlinda da Culture, Blood No growth after 5 day/s of incubation. 10/23/2023 9:03 PM FERTILIZER SUPERVISOR NPRG Blood (Blood, Peripheral Draw) 10/18/2023 8:46 PM FERTILIZER SUPERVISOR 10/18/2023 8:49 PM FERTILIZER SUPERVISOR Comment:Specimen Source Site : Blood Iam Herrera D.O. LAB MICROBIOLOGY - G ENERAL ORDERABLES Performing Organization Address City/[facility]/ZIP Co de Phone Number [facility] [address] [place] [address], [address] [address] * Bacteria / Lucy Culture, Blood #1 (10/18/2023 8:46 PM FERTILIZER SUPERVISOR) Bacteria/Herlinda da Culture, Blood No growth after 5 day/s of incubation. 10/23/2023 9:03 PM FERTILIZER SUPERVISOR NPRG Blood (Blood, Peripheral Draw) 10/18/2023 8:46 PM FERTILIZER SUPERVISOR 10/18/2023 8:49 PM FERTILIZER SUPERVISOR Comment:Specimen Source Site : Blood Iam Herrera D.O. LAB MICROBIOLOGY - G ENERAL ORDERABLES Performing Organization Address City/[facility]/ZIP Co de Phone Number [facility] [address] [place] [address], [address] [address] * (ABNORMAL) CBC with Differential, Blood (10/18/2023 8:46 PM FERTILIZER SUPERVISOR) Hemoglobin 12.0 11.6 - 15.0 g/dL 10/18/2023 8:54 PM FERTILIZER SUPERVISOR NPRG Hematocrit 39.5 35.5 - 44.9 % 10/18/2023 8:54 PM FERTILIZER SUPERVISOR NPRG Erythrocytes 4.65 3.92 - 5.13 x10(12)/L 10/18/2023 8:54 PM FERTILIZER SUPERVISOR NPRG MCV 84.9 78.2 - 97.9 fL 10/18/2023 8:54 PM FERTILIZER SUPERVISOR NPRG RBC Distrib Width 19.7(H) 12.2 - 16.1 % 10/18/2023 8:54 PM FERTILIZER SUPERVISOR NPRG Platelet Count 294 157 - 371 x10(9)/L 10/18/2023 8:54 PM FERTILIZER SUPERVISOR NPRG Leukocytes 15.6(H) 3.4 - 9.6 x10(9)/L 10/18/2023 8:54 PM FERTILIZER SUPERVISOR NPRG Neutrophils 10.44(H) 1.56 - 6.45 x10(9)/L 10/18/2023 8:54 PM FERTILIZER SUPERVISOR NPRG Lymphocytes 3.66(H) 0.95 - 3.07 x10(9)/L 10/18/2023 8:54 PM FERTILIZER SUPERVISOR NPRG Monocytes 1.45(H) 0.26 - 0.81 x10(9)/L 10/18/2023 8:54 PM FERTILIZER SUPERVISOR NPRG Eosinophils 0.06 0.03 - 0.48 x10(9)/L 10/18/2023 8:54 PM FERTILIZER SUPERVISOR NPRG Basophils 0.02 0.01 - 0.08 x10(9)/L 10/18/2023 8:54 PM FERTILIZER SUPERVISOR NPRG Blood (Blood, Venous) 10/18/2023 8:46 PM FERTILIZER SUPERVISOR 10/18/2023 8:49 PM FERTILIZER SUPERVISOR Iam Herrera D.O. LAB BLOOD ADD-ON [facility] [address] [place] [address], [facility] NPRG [facility] [address] [place] [address] * Influenza A/B and RSV, PCR, Point of Care (10/18/2023 8:35 PM FERTILIZER SUPERVISOR) Influenza A, POCT Negative Negative 10/18/2023 8:52 PM FERTILIZER SUPERVISOR NPRG Influenza B, POCT Negative Negative 10/18/2023 8:52 PM FERTILIZER SUPERVISOR NPRG Resp Syncytial Virus, POCT Negative Negative 10/18/2023 8:52 PM FERTILIZER SUPERVISOR NPRG Swab (Nasopharynx) 10/18/2023 8:35 PM FERTILIZER SUPERVISOR 10/18/2023 8:50 PM FERTILIZER SUPERVISOR Iam Herrera D.O. LAB POCT ORDERABLES - DEVICE Performing Organization Address City/[facility] Co de Phone Number [facility] [address] [place] [address], [facility] NPRG [address] [address] * SARS Coronavirus 2, PCR Rapid Symptomatic (10/18/2023 8:28 PM FERTILIZER SUPERVISOR) [facility] SARS CoV-2, PCR, Rapid, V Undetected Undetected 10/18/2023 9:11 PM FERTILIZER SUPERVISOR NPRG Comment: ----ADDITIONAL INFORMATION---- This RT-PCR test was performed using the [employer] SARS-CoV-2 and Influenza A/B Reagent assay from [employer], which has received Emergency Use Authorization(EUA) by the U.S. Food and Drug Administration. Fact sheets for this Emergency Use Authorization (EUA) assay can be found at the following links: For Healthcare Providers: https://www.fda.gov/media/612697/download For Patients: https://www.fda.gov/media/938699/download SARS Coronavirus 2, Source, Rapid Swab, Nasopharynx 10/18/2023 8:49 PM FERTILIZER SUPERVISOR NPRG Swab (Nasopharynx) 10/18/2023 8:28 PM FERTILIZER SUPERVISOR 10/18/2023 8:49 PM FERTILIZER SUPERVISOR Iam Herrera D.O. LAB MICROBIOLOGY - G ENERAL ORDERABLES Performing Organization Address [facility]/ZIP Co de Phone Number [facility] [address] [place] [address], [facility] NPRG [address] [address] documented in this encounter Visit Diagnoses Diagnosis Pneumonia- Primary Hypoxia documented in this encounter Administered Medications Inactive Administered Medications - up to 3 most recent administrations Medication Order MAR Action Action Date Dose Rate Site ceFEPIme injection 2 g (MAXIPIME) 2 g, intravenous, Once, On 10/18/23 at 2123, For 1 dose, If needed, reconstitute vial per package insert instructions. See IVAG for administration guidelines., Drug Monitoring Program: Pharmacist to adjust medication dosing based on indication and drug clearance factors., Indications: Respiratory tract infection, community acquired Given 10/18/2023 9:46 PM FERTILIZER SUPERVISOR 2 g doxycycline 100 mg in NaCl 0.9% IVPB (VIBRAMYCIN) 100 mg, intravenous, at 100 mL/hr, Administer over 60 Minutes, Once, On 10/18/23 at 2123, For 1 dose, Mini-Bag Plus bag, Indications: Respiratory tract infection, community acquired New Bag 10/18/2023 9:50 PM FERTILIZER SUPERVISOR 100 mg 100 mL/hr hydrocortisone sodium succinate (PF) injection 100 mg (Solu-CORTEF) 100 mg, intravenous, Once, On 10/19/23 at 0003, For 1 dose, IV push over 30 seconds per 100 mg (For doses 500 mg or less) Given 10/19/2023 12:07 AM FERTILIZER SUPERVISOR 100 mg NaCl 0.9 % bolus 500 mL 500 mL, intravenous, at 500 mL/hr, Administer over 1 Hours, Once, On 10/18/23 at 2028, For 1 dose New Bag 10/18/2023 8:39 PM FERTILIZER SUPERVISOR 500 mL 500 mL/hr NaCl 0.9 % bolus 500 mL 500 mL, intravenous, at 500 mL/hr, Administer over 1 Hours, Once, On 10/19/23 at 0003, For 1 dose New Bag 10/19/2023 12:07 AM FERTILIZER SUPERVISOR 500 mL 500 mL/hr oxyCODONE IR tablet 5 mg (ROXICODONE) 5 mg, oral, Once, On 10/18/23 at 8, For 1 dose Given 10/18/2023 9:24 PM FERTILIZER SUPERVISOR 5 mg oxyCODONE IR tablet 5 mg (ROXICODONE) 5 mg, oral, Once, On 10/19/23 at 0030, For 1 dose Given 10/19/2023 12:33 AM FERTILIZER SUPERVISOR 5 mg sodium chloride 0.9 % injection 3 mL 3 mL, intravenous, As needed, line care, Starting on 10/18/23 at 2025, Prior to and following infusion and between multiple consecutive infusions: sodium chloride 0.9 % injection documented in this encounter Active and Recently Administered Medications Times are shown in FERTILIZER SUPERVISOR. Scheduled Medication Order 10/17/2023 10/18/2023 10/19/2023 ceFEPIme injection 2 g (MAXIPIME) (COMPLETED) 2 g, intravenous, Once, On 10/18/23 at 2124, For 1 dose, If needed, reconstitute vial per package insert instructions. See IVAG for administration guidelines., Drug Monitoring Program: Pharmacist to adjust medication dosing based on indication and drug clearance factors., Indications: Respiratory tract infection, community acquired 2145 (Given - Provider: Freida Epps R.N.) doxycycline 100 mg in NaCl 0.9% IVPB (VIBRAMYCIN) (COMPLETED) 100 mg, intravenous, at 100 mL/hr, Administer over 60 Minutes, Once, On 10/18/23 at 2123, For 1 dose, Mini-Bag Plus bag, Indications: Respiratory tract infection, community acquired 2149 (New Bag - Provider: Fredia Epps R.N.)231 (Stopped - Provider: Rosio Espinoza R.N.) hydrocortisone sodium succinate (PF) injection 100 mg (Solu-CORTEF) (COMPLETED) 100 mg, intravenous, Once, On 10/19/23 at 0003, For 1 dose, IV push over 30 seconds per 100 mg (For doses 500 mg or less) 0007 (Given - Provid er: Bill VeraNRoberto) NaCl 0.9 % bolus 500 mL (COMPLETED) 500 mL, intravenous, at 500 mL/hr, Administer over 1 Hours, Once, On 10/18/23 at 2028, For 1 dose 2038 (New Bag - Provider: Freida Epps R.N.)214 (Stopped - Provider: Freida Epps R.N.) NaCl 0.9 % bolus 500 mL (COMPLETED) 500 mL, intravenous, at 500 mL/hr, Administer over 1 Hours, Once, On 10/19/23 at 0003, For 1 dose 0007 (New Bag - Provider: Rosio Espinoza R.N.)0045 (Stopped - Provider: Rosio Espinoza R.N.) oxyCODONE IR tablet 5 mg (ROXICODONE) (COMPLETED) 5 mg, oral, Once, On 10/18/23 at 2118, For 1 dose 2123 (Given - Provider: Rosio Espinoza R.N.) oxyCODONE IR tablet 5 mg (ROXICODONE) (COMPLETED) 5 mg, oral, Once, On 10/19/23 at 0030, For 1 dose 0033 (Given - Provid er: Anna Malik R.N.) PRN Medication Order 10/17/2023 10/18/2023 10/19/2023 sodium chloride 0.9 % injection 3 mL 3 mL, intravenous, As needed, line care, Starting on 10/18/23 at 2025, Prior to and following infusion and between multiple consecutive infusions: sodium chloride 0.9 % injection documented in this encounter Additional Health Concerns Infection Onset Date Last Indicated Resolved Time COVID19 Pending 10/18/2023 10/18/2023 10/18/2023 9 :11 PM FERTILIZER SUPERVISOR documented as of this encounter Care Teams Assistant Professor Of Archaeology Relationship Specialty Start Date End Date Osiris Otero APRN, C.N.P., R.N. [address] [place] [address] PCP - General Family Medicine 09/17/23 12/08/23 documented as of this encounter
--- OUTSIDE RECORDS SUMMARY | 2024-01-16 12:06 | XMS_ITS | Clinical Summary ---
Author Name Unknown Organization [facility] Address [place], [place] [address] Care Team Providers Care Twister Tender Paper Name Role Phone Kallie Tamayo NP Unavailable [phone] [facility], [place] Unavailable [phone] Flo Mckeon MD Primary Care Provider [phone] Allergies No known active allergies Medications Medication Sig Dispensed Refills Start Date End Date Status doxycycline (VIBRAMYCIN) 100 mg capsule Take 1 capsule by mouth 2 times daily. 28 capsule 0 01/18/2014 Active ibuprofen (ADVIL; MOTRIN) 200 mg tablet Take 2 tablets by mouth once daily. 0 01/18/2014 Active predniSONE (DELTASONE) 10 mg tablet Take 1 tablet by mouth once daily with a meal. 0 01/18/2014 Active mineral oil-hydrophil petrolat (AQUAPHOR) oint Apply topically to affected area(s) once daily. 1 Tube 0 01/18/2014 Active pseudoephedrine (SUDAFED) 60 mg tablet 60 mg qd 0 01/18/2014 Active sennosides (SENNA) 8.6 mg tablet Take 1 tablet by mouth once daily. 0 01/18/2014 Active traZODone (DESYREL) 50 mg tablet Take 1 tablet by mouth at bedtime. 0 01/18/2014 Active polyethylene glycoL (MIRALAX) 17 gram/dose powder Take 17 g by mouth once daily if needed for Constipation. 0 01/18/2014 Active oxyCODONE (ROXICODONE) 5 mg capsule 5 mg q3hrs prn 0 01/18/2014 Active famotidine (PEPCID) 20 mg tablet Take 1 tablet by mouth once daily. 0 01/28/2014 Active Active Problems Problem Noted Date Diagnosed Date Acute gastric ulcer without hemorrhage or perfor ation 11/06/2022 Overview: EGD 10/2021 pyloric channel ulcer, H. 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 Paraplegia 01/18/2014 Rheumatoid arthritis 01/18/2014 Seasonal allergies 01/18/2014 Low back pain radiating to right leg 01/18/2014 Neurogenic bladder 01/18/2014 A-fib 01/18/2014 Constipation 01/18/2014 Scoliosis 01/18/2014 Encounters Date Type Department Care Team Description 10/29/2023 Patient Outreach [facility] Management - Advanced Care Team [address] [place] [address] Roshan Zepeda clinical trial coordinator Management (RN outreach attempt, Engagement Outreach, #3 of 3 due to Payer Referral/) 10/20/2023 Patient Outreach [facility] Care Management - Care Management Navigation/[facility] [address] [place] [address] Charley Hauser Care Management Intake (Payer Referral) from Last 3 Months Social History Tobacco Use Types Packs/Day Years Used Date Smoking Tobacco: Never Assessed Social Connections Answer Date Recorded Frequency of Communication with Friends and Fami ly Not on file 02/03/2022 Sex and Gender Information Value Date Recorded Sex Assigned at Not on file Gender Identity Not on file Sexual Orientation Not on file Obstetrics History Last Filed Vital Signs Vital Sign Reading Time Taken Comments Blood Pressure 109/56 01/21/2014 8:48 AM CDT Pulse 90 01/21/2014 8:48 AM CDT Temperature 36.5 ??C (97.7 ??F) 01/21/2014 8:48 AM CD T Respiratory Rate 16 01/21/2014 8:48 AM CDT Oxygen Saturation 91% 01/21/2014 8:48 AM CDT Inhaled Oxygen Concentration - - Weight 59.1 kg (130 lb 5 oz) 01/21/2014 8:48 AM CDT Height - - Body Mass Index - - Plan of Treatment Health Maintenance Due Date Last Done Comments Tdap 1957 Depression screening for age 12+ 1958 BMI (ht and wt on same day) for age 18+ 1964 Hepatitis C screening for age 18-79 1964 Tetanus booster 1966 Zoster (shingles) series for age 50+ (1 of 2) 12/30/18 97 DEXA/DXA scan for age 65+ 12/31/2011 Pneumococcal series for age 65+ (1 of 1 - PCV) 012 COVID-19 vaccine series ( - 2022-24 season) 3 Influenza for age 65+ 06/13/2024 Care Teams Twister Tender Paper Relationship Specialty Start Date End Date Flo Mckeon MD [address] [place] [phone] PCP - General Family Practice 10/04/21 Kallie Tamayo NP [address] [phone] Family Practice 01/17/14 [facility], [place] [address] [facility] [address] [place] [address] 01/29/14
--- OUTSIDE RECORDS SUMMARY | 2024-01-16 12:06 | XMS_ITS | Encounter Summary ---
Author Name Unknown Organization [facility] Address [address] [place] [address] Care Team Providers Care Vocational Instructor Name Role Phone Osiris Otero APRN, C.N.P., R.N. Primary Care Provider Encounter Details Date Type Department Care Team (Latest Contact Info) Description 10/14/2023 1:45 AM BUILDING SERVICES TECHNICIAN - 10/14/2023 11:59 PM [facility] Hospital Encounter Department of Laboratory Medicine in [place], [place] [address] [place] [address] Osiris Otero APRN, C.N.P., R.N. [address] [place] [phone] Edema Localized Discharge Disposition: Home or Self [...] Diagnosis Comments BASIC METABOLIC PANEL, S/P Routine 10/14/2023 7:10 AM BUILDING SERVICES TECHNICIAN Edema Localized documented in this encounter Results * (ABNORMAL) Basic Metabolic Panel (10/14/2023 7:10 AM BUILDING SERVICES TECHNICIAN) Potassium, P 3.3(L) 3.6 - 5.2 mmol/L 10/14/2023 9:03 AM BUILDING SERVICES TECHNICIAN NPRG Sodium, P 143 135 - 145 mmol/L 10/14/2023 9:03 AM BUILDING SERVICES TECHNICIAN NPRG Chloride, P 99 98 - 107 mmol/L 10/14/2023 9:03 AM BUILDING SERVICES TECHNICIAN NPRG Bicarbonate, P 32(H) 22 - 29 mmol/L 10/14/2023 9:03 AM BUILDING SERVICES TECHNICIAN NPRG Anion Gap, P 12 7 - 15 10/14/2023 9:03 AM BUILDING SERVICES TECHNICIAN NPRG BUN (Blood Urea Nitrogen), P 16 6 - 21 mg/dL 10/14/2023 9:03 AM BUILDING SERVICES TECHNICIAN NPRG Creatinine 0.31(L) 0.59 - 1.04 mg/dL 10/14/2023 9:03 AM BUILDING SERVICES TECHNICIAN NPRG Estimated GFR (eGFR) >90 >=60 mL/min/BSA 10/14/2023 9:03 AM BUILDING SERVICES TECHNICIAN NPRG Comment: Estimated GFR calculated using the 2020 CKD_EPI creatinine equation. Calcium, Total, P 9.2 8.8 - 10.2 mg/dL 10/14/2023 9:03 AM BUILDING SERVICES TECHNICIAN NPRG Glucose, P 83 70 - 140 mg/dL 10/14/2023 9:03 AM BUILDING SERVICES TECHNICIAN NPRG Blood (Blood, Venous) 10/14/2023 7:10 AM BUILDING SERVICES TECHNICIAN 10/14/2023 8:36 AM BUILDING SERVICES TECHNICIAN Osiris Otero APRN, Mars.N.P., R.N. LAB B LOOD ADD-ON [facility] [address] [place] [address], [facility] NPRG [facility] [address] [place] [address] documented in this encounter Visit Diagnoses Diagnosis Edema Localized documented in this encounter Care Teams Vocational Instructor Relationship Specialty Start Date End Date Osiris Otero APRN, C.N.P., R.N. [address] [place] [address] PCP - General Family Medicine 09/17/23 12/08/23 documented as of this encounter
--- OUTSIDE RECORDS SUMMARY | 2024-01-16 12:06 | XMS_ITS | Encounter Summary ---
Author Name Unknown Organization [facility] Address [address] [place] [address] Care Team Providers Care President Commercial Bank Name Role Phone Osiris Otero APRN, C.N.P., R.N. Primary Care Provider Encounter Details Date Type Department Care Team (Late st Contact Info) Description 10/10/2023 Orders Only Senior Services in [place] [address] [place] [phone] Osiris Otero APRN, C.N.P., R.N. [address] [place] [address] Social History Tobacco Use Types Packs/Day Years Used Date Smoking Tobacco: Never Smokeless Tobacco: Never Alcohol Use Standard Drinks/Week Comments Defer 0 (1 standard drink = 0.6 oz pur e alcohol) Nutrition Answer Date Recorded Nutrition: EVOO Fat Source Unknown 09/17 Nutrition: Servings of Fruits/Vegetables per Day Not on file 09/17/2023 Dental Answer Date Recorded Dental: Regular Dentist Unknown 09/17/20 Sex and Gender Information Value Date Recorded Sex Assigned at Not on file Gender Identity Not on file Sexual Orientation Not on file documented as of this encounter Plan of Treatment Not on file documented as of this encounter Visit Diagnoses Not on filedocumented in this encounter Additional Health Concerns Infection Onset Date Last Indicated Resolved Time COVID19 Pending 10/10/2023 10/10/2023 10/10/2023 1 :08 PM BARN WORKER documented as of this encounter Care Teams President Commercial Bank Relationship Specialty Start Date End Date Osiris Otero APRN, C.N.P., R.N. [address] [place] [address] PCP - General Family Medicine 09/17/23 12/08/23 documented as of this encounter
--- OUTSIDE RECORDS SUMMARY | 2024-01-16 12:06 | XMS_ITS | Encounter Summary ---
Author Name Unknown Organization [facility] Address [address] [place] [address] Care Team Providers Care System Technologist Name Role Phone Osiris Otero APRN, C.N.P., R.N. Primary Care Provider Encounter Details Date Type Department Care Team (Late st Contact Info) Description 10/17/2023 Orders Only Senior Services in [place] [address] [place] [phone] Osiris Otero APRN, C.N.P., R.N. [address] [place] [phone] Social History Tobacco Use Types Packs/Day Years Used Date Smoking Tobacco: Never Smokeless Tobacco: Never Alcohol Use Standard Drinks/Week Comments Defer 0 (1 standard drink = 0.6 oz pur e alcohol) [facility] Utilities Answer Date Recorded In the past 12 months has [facility] [employer], gas, oil, or water [employer] threatened to shut off services in your [...] your living situation today? I have a [facility] place to live 10/19/2023 Sex and [...] Pending 10/18/2023 10/18/2023 10/18/2023 9 :11 PM LATENT FINGERPRINT EXAMINER documented as of this encounter Care Teams System Technologist Relationship Specialty Start Date End Date Osiris Otero APRN, C.N.P., R.N. [address] [place] [address] PCP - General Family Medicine 09/17/23 12/08/23 documented as of this encounter
--- OUTSIDE RECORDS SUMMARY | 2024-01-16 12:06 | XMS_ITS | Continuity of Care Document ---
Author Name Unknown Organization [facility] Address [address] [place] [address] Phone Care Team Providers Care Curing Oven Attendant Name Role Phone Susan Guerrero Unavailable Unavail [...] Available - Active Procedures Procedure Date Office/Outpatient Visit,[facility] 2013 Advance Directives Directive Yes / No Effective Date File Name No Information Encounters Encounter Description Practice Location Reason(s) For Visit Diagnoses Date Provider Providers Copied on Encounter [facility], [address], [place], [place], [id number], [place] tel:[phone] [facility] No Information 6 Pandiscio Susan. [facility], [address] [place] [address], [address], [place], [place], [id number], [place]. tel:[phone] Office/Outpat ient Visit,[facility], [address] [facility] [address], [place], [address], [place] tel:[phone] [facility] No Information 4 Pandiscio Susan. [facility], [address], [address], [place], [place], [id number], [place]. tel:[phone] Referring Provider: Freida Doe, [place] [address] [place], [address]. tel:[phone] Family History Family Member Type Diagnosis Age [...]
--- OUTSIDE RECORDS SUMMARY | 2024-01-16 12:06 | XMS_ITS | Encounter Summary ---
Author Name Unknown Organization [facility] Address [address] [place] [address] Care Team Providers Care Pile Trimmer Name Role Phone ShannaFransisca lopezOsirisdilcia Doe APRN, C.N.P., R.N. Primary Care Provider Encounter Details Date Type Department Care Team (Latest Contact Info) Description 10/10/2023 2:00 PM FREEZER MACHINE OPERATOR External Outreach Senior Services in [place] [address] [place] [address] Fernando Renee M.D. 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); Acute On Chronic Diastolic (Congestive) Heart Failure (HCC); Abscess Perirectal Social History Tobacco Use Types Packs/Day Years [...] Sign Reading Time Taken Comments Blood Pressure 119/67 10/10/2023 8:19 AM FREEZER MACHINE OPERATOR Pulse 86 10/10/2023 8:19 AM FREEZER MACHINE OPERATOR Temperature 36.8 ??C (98.2 ??F) 10/10/2023 8:19 AM CS T Respiratory Rate 18 10/10/2023 8:19 AM FREEZER MACHINE OPERATOR Oxygen Saturation 97% 10/10/2023 8:19 AM FREEZER MACHINE OPERATOR Inhaled Oxygen Concentration - - Weight 60.2 kg (132 lb 11.2 oz) 10/10/2023 8:19 AM FREEZER MACHINE OPERATOR Height - - Body Mass Index - - documented in this encounter Progress Notes * Fernando Renee M.D. - 10/10/2023 2:00 PM CST SUBJECTIVE CHIEF COMPLAINT / REASON FOR VISIT I am asked to see Prerna, for a New Admission visit. Visit Type: In Person Face-to- Face visit HISTORY OF PRESENT ILLNESS Prerna is a 77 y.o. female who currently resides at [facility] in [place], [place]. Obtained from Patient and SBAR: This 77-year-old female presented to our facility following treatment for perirectal abscess. Patient was hospitalized at [facility] from 08/28/2023 through 09/17/2023, she has a [...] obstructive sleep apnea. [facility] Patient is seen in her room. She has developed cough over the last couple days with some shortness of breath. No known fevers or chills. She had developed diarrhea after her antibiotics. She was placed on cholestyramine in the [facility]. Now she states that she is having loose stool after meals 3 times a day. She does have some chronic low back pain and pain in her wounds that does radiate down her legs, primarily the right. She is using Tylenol and oxycodone for pain control. Patient is incontinent of bowels due to her paraplegia. She also has a Cristobal catheter in place. Diagnosis Overview 1. 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 Acute On Chronic Diastolic (Congestive) Heart Failure (HCC) 3. Abscess Perirectal 4. Other Adrenocortical Insufficiency (HCC) 5. Neurogenic Bladder 6. Edema Localized 7. Diarrhea 8. Benign Neoplasm Colon 9. Atrial Fibrillation Unspecified (HCC) 10. Arthritis Rheumatoid (HCC) 11. Anemia 12. Hypertension Essential Primary 13. Corticosteroid Treatment Fpc Systemic 14. Paraplegia (HCC) - Primary I reviewed EPIC notes as well as any facility-provided information (if applicable), lab/test results, and images/imaging reports. The following portions of the patient's history were reviewed and updated as appropriate: allergies, current medications, medical history, social history, surgical history and problem list. CODE STATUS: Full Code REVIEW OF SYSTEMS Complete review of systems was performed, as allowable by patient's cognitive status, and incorporating collateral history if applicable. Relevant positives are noted elsewhere in this note, otherwise negative. OBJECTIVE VITAL SIGNS Vitals: 10/10/23 0819 BP: 119/67 Pulse: 86 Temp: 36.8 ??C Resp: 18 Weight: 60.2 kg SpO2: 97% PHYSICAL EXAMINATION General: Elderly female who speaks in broken up sentences due to some difficulty with her breathing. HEENT: No cervical adenopathy, thyromegaly, or carotid bruits. Lungs: Rhonchi throughout. Cardiovascular: Regular rate and rhythm without murmur. Extremities: No edema. Photos of her abscess were viewed in the electronic health record. Labs: Lab Results Component Value Date WBC 13.6 (H) 09/30/2023 HGB 11.9 09/30/2023 HCT 39.3 09/30/2023 MCV 86.9 09/30/2023 PLT 282 09/30/2023 Lab Results Component Value Date NA 142 09/23/2023 KSERUM 4.3 01/28/2023 KPLASMA 4.4 09/23/2023 CL 103 09/23/2023 BICARB 30 (H) 09/23/2023 CREATININE 0.28 (L) 09/23/2023 EGFR >90 09/23/2023 BUN 19 09/23/2023 ANIONGAP 9 09/23/2023 GLUCOSE 71 09/23/2023 CALCIUM 8.4 (L) 09/23/2023 ASSESSMENT / PLAN #1 Paraplegia (HCC) Since age 6 #2 Other Adrenocortical Insufficiency (HCC) On prednisone 10 mg daily #3 Neurogenic Bladder Indwelling Cristobal #4 Hypertension Essential Primary Controlled with metoprolol #5 Edema Localized Controlled on furosemide 40 mg daily. #6 Diarrhea Likely residual from her recent antibiotic regimen. GI pathogen panel was negative on 09/20/2023. #7 Corticosteroid Treatment Fpc Systemic Prednisone 10 mg daily #8 Benign Neoplasm Colon I do not have any updated records on this from [place] #9 Atrial Fibrillation Unspecified (HCC) Rate controlled [...] and will follow-up with general surgery in [place]. [facility]. Her breathing is worse today and is concerning for infection. Chest x-ray, viral panel, and CBC arepending. Will restart her cholestyramine at 1 dose daily. She can also take loperamide as needed for loose stools. 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 [address] [place] [address] PCP - General Family Medicine 09/17/23 12/08/23 documented as of this encounter
--- OUTSIDE RECORDS SUMMARY | 2024-01-16 12:06 | XMS_ITS | Encounter Summary ---
Author Name Unknown Organization [facility] Address [address] [place] [address] Care Team Providers Care Java Front End Web Developer Name Role Phone Osiris Otero APRN, C.N.P., R.N. Primary Care Provider Encounter Details Date Type Department Care Team (Latest Contact Info) Description 10/10/2023 8:30 AM QA SOFTWARE TEST ENGINEER - 10/10/2023 11:19 AM [facility] Hospital Encounter Department of Laboratory Medicine in [place], [place] [address] [place] [address] Osiris Otero APRN, C.N.P., R.N. [address] [place] [phone] Cough Unspecified Type Discharge Disposition: Home or Self Care Social [...] 100 mg by mouth daily. 0 09/18/2023 furosemide (LASIX) 40 mg tablet Take 60 mg by mouth daily. 0 09/18/2023 10/14/2023 loperamide (IMODIUM A-D) 2 mg capsule Take [...] 11/07/2023 oxyCODONE (ROXICODONE) 5 mg immediate release tabletIndications:Dip Painter lilliana Pain/Nonacute Pain Take 1 tablet (5 mg total) by mouth every 6 (six) hours as needed for pain Indication: Chronic Pain/Nonacute Pain. 42 tablet 0 09/26/2023 10/14/2023 potassium chloride (KLOR-CON M/KDUR) 20 mEq ER tablet Take 20 mEq by mouth 2 (two) times a day with meals. 0 09/17/2023 10/14/2023 predniSONE (DELTASONE) 10 mg tablet Take 10 mg by mouth daily. 0 09/18/2023 10/22/2023 VITAMIN C, ASCORBATE CALCIUM, ORAL Take 1,000 mg by mouth daily. 0 09/18/2023 10/27/2023 documented as of this encounter Plan of Treatment Not on file documented as of this encounter Procedures Procedure Name Priority Date/Time Associated Diagnosis Comments MORPHOLOGY EVALUATION Routine 10/10/2023 11:20 AM QA SOFTWARE TEST ENGINEER CBC WITH DIFFERENTIAL, B Routine 10/10/2023 11:20 AM QA SOFTWARE TEST ENGINEER Cough Unspecified Type documented in this encounter Results * (ABNORMAL) Morphology Evaluation (10/10/2023 11:20 AM QA SOFTWARE TEST ENGINEER) RBC Morphology See Specific Findings 10/10/2023 1:04 PM QA SOFTWARE TEST ENGINEER NPRG PLT Morphology Normal 10/10/2023 1:04 PM QA SOFTWARE TEST ENGINEER NPRG PLT Estimate Adequate Adequate 10/10/2023 1:04 PM QA SOFTWARE TEST ENGINEER NPRG Anisocytosis Moderate(A) 10/10/2023 1:04 PM QA SOFTWARE TEST ENGINEER NPRG Reactive/Atypica l Lymphocytes Present(A) Not Seen 10/10/2023 1:04 PM QA SOFTWARE TEST ENGINEER NPRG Blood 10/10/2023 11:2 0 AM QA SOFTWARE TEST ENGINEER 10/10/2023 12:40 PM QA SOFTWARE TEST ENGINEER Osiris Otero APRN, C.N.P., R.N. LAB B LOOD ADD-ON [facility] [address] [place] [address], [place] NPRG [facility] [address] [place] [address] * (ABNORMAL) CBC with Differential, Blood (10/10/2023 11:20 AM QA SOFTWARE TEST ENGINEER) Hemoglobin 12.0 11.6 - 15.0 g/dL 10/10/2023 1:04 PM QA SOFTWARE TEST ENGINEER NPRG Hematocrit 40.9 35.5 - 44.9 % 10/10/2023 1:04 PM QA SOFTWARE TEST ENGINEER NPRG Erythrocytes 4.64 3.92 - 5.13 x10(12)/L 10/10/2023 1:04 PM QA SOFTWARE TEST ENGINEER NPRG MCV 88.1 78.2 - 97.9 fL 10/10/2023 1:04 PM QA SOFTWARE TEST ENGINEER NPRG RBC Distrib Width 18.9(H) 12.2 - 16.1 % 10/10/2023 1:04 PM QA SOFTWARE TEST ENGINEER NPRG Platelet Count 310 157 - 371 x10(9)/L 10/10/2023 1:04 PM QA SOFTWARE TEST ENGINEER NPRG Leukocytes 19.1(H) 3.4 - 9.6 x10(9)/L 10/10/2023 1:04 PM QA SOFTWARE TEST ENGINEER NPRG Neutrophils 15.39(H) 1.56 - 6.45 x10(9)/L 10/10/2023 1:04 PM QA SOFTWARE TEST ENGINEER NPRG Lymphocytes 2.97 0.95 - 3.07 x10(9)/L 10/10/2023 1:04 PM QA SOFTWARE TEST ENGINEER NPRG Monocytes 0.61 0.26 - 0.81 x10(9)/L 10/10/2023 1:04 PM QA SOFTWARE TEST ENGINEER NPRG Eosinophils 0.07 0.03 - 0.48 x10(9)/L 10/10/2023 1:04 PM QA SOFTWARE TEST ENGINEER NPRG Basophils 0.02 0.01 - 0.08 x10(9)/L 10/10/2023 1:04 PM QA SOFTWARE TEST ENGINEER NPRG Blood (Blood, Venous) 10/10/2023 11:20 AM QA SOFTWARE TEST ENGINEER 10/10/2023 12:40 PM QA SOFTWARE TEST ENGINEER Osiris Otero APRN, C.N.P., R.N. LAB B LOOD ADD-ON [facility] [address] [place] [address], [place] NPRG [facility] [address] [place] [address] documented in this encounter Visit Diagnoses Diagnosis Cough Unspecified Type documented in this encounter Care Teams Java Front End Web Developer Relationship Specialty Start Date End Date Osiris Otero APRN, C.N.P., R.N. [address] [place] [address] PCP - General Family Medicine 09/17/23 12/08/23 documented as of this encounter
--- OUTSIDE RECORDS SUMMARY | 2024-01-16 12:06 | XMS_ITS | Clinical Summary ---
Author Name Unknown Organization [facility] Address [address] [address] Care Team Providers Care Assistant Produce Manager Name Role Phone Flo Mckeon MD Primary Care Provider + [phone] Source Comments You are receiving this document as you are listed as the primary care provider,follow-up provider, or the patient has been referred to you for consultation.This is in compliance with the Medicare andMedicaid EHR Incentive Program,which states Providers who transition their patient to another setting of careor provider of care or refers their patient to another provider of care shouldprovide summary care record for each transition of care or referral. [facility] Medications Medication Sig Dispensed Refills Start Date End Date Status acetaminophen (TYLENOL ARTHRITIS) 650 MG controlled release tablet as needed Active furosemide (LASIX) 20 MG tablet Daily 06/11/2021 Active diphenhydrAMINE-APAP 25-500 MG tablet Bedtime as needed A ctive predniSONE (DELTASONE) 5 MG tablet 10 mg daily. 06/11/2021 Active aspirin EC 81 MG enteric coated tablet Daily Act job pseudoephedrine ([id number]) 120 MG 12 hour release tablet Daily Active calcium carbonate-vitamin D 600-200 MG-UNIT tablet Take 2 Tablets by mouth daily. Active multivitamin (THERAGRAN) tablet Take 1 Tablet by mouth daily. Active methotrexate 2.5 MG tablet Take 7 Tablets by mouth once every week. 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 Immunizations Name Administration Dates Next Due DT Ped 03/23/1987 Social History Tobacco Use Types Packs/Day Years Used Date Smoking Tobacco: Never Assessed Sex and Gender Information Value Date Recorded Sex Assigned at Not on file Gender Identity Not on file Sexual Orientation Not on file Plan of Treatment Health Maintenance Due Date Last Done Comments Medicare Welcome Visit 1945 Zoster/Shingles (1 of 2) 1996 Dexa 12/31/2011 Pneumococcal 65+ Yrs (1 - PCV) 12/31/2011 COVID-19 Vaccine (1 - 2022- season) 2023 Influenza (#1) 2023 07/18/2009, 07/18/2009 DTaP/Tdap/Td (5 - Tdap) 04/22/2028 04/22/20 18, 04/22/2015, 04/26/2008, Additional history exists Hep C Screening (Preventive Services) Completed 06/28/2021 HepA Aged Out No longer eligi ble based on patient's age to complete this topic HepB Aged Out No longer eligi ble based on patient's age to complete this topic Hib Aged Out No longer eligi ble based on patient's age to complete this topic IPV (Polio) Aged Out No longer eligi ble based on patient's age to complete this topic MCV4 Aged Out No longer eligi ble based on patient's age to complete this topic Procedures Procedure Name Priority Date/Time Associated Diagnosis Comments HEPATITIS C ANTIBODY, WITH REFLEX Routine 06/28/2021 2:27 PM CDT 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) from Last 3 Months or Most Recently Relevant to Health Maintenance Results * Hepatitis C Antibody, with Reflex (06/28/2021 2:27 PM CDT) Hepatitis C Antibody Negative (Non Reactive) Negative (Non Reactive) 06/28/2021 7:52 PM CDT [facility] Comment:Antibodies to HCV no t detected. Does not exclude the possiblity of exposure to HCV. Blood Venipuncture / Unknown 06/28/2021 2:27 PM CDT 06/28/2021 2:28 PM CDT Lorenza Q Black DO LAB_1 [facility] [address] [place], [place] [id number] [place] [address] from Last 3 Months or Most Recently Relevant to Health Maintenance Care Teams Assistant Produce Manager Relationship Specialty Start Date End Date Flo Mckeon MD [address] [place] [address] PCP - General 06/21/21
--- OUTSIDE RECORDS SUMMARY | 2024-01-16 12:06 | XMS_ITS | Encounter Summary ---
Author Name Unknown Organization [facility] Address [address] [place] [address] Care Team Providers Care Tribal Judge Name Role Phone Osiris Otero APRN, C.N.P., R.N. Primary Care Provider Reason for Visit * Reason Onset Date Comments Med Question 10/16/2023 Clarification ox ycodone Encounter Details Date Type Department Care Team (Latest Contact Info) Description 10/16/2023 Clinical Communication Senior [facility] in [place] [address] [place] [address] Osiris Otero APRN, C.N.P., R.N. [address] [place] [phone] Med Question (Clarification oxycodone) Social History Tobacco Use Types Packs/Day Years Used Date Smoking Tobacco: Never Smokeless Tobacco: Never Alcohol Use Standard Drinks/Week Comments Defer 0 (1 standard drink = 0.6 oz pur e alcohol) [facility] Utilities Answer Date Recorded In the [...] your living situation today? I have a [facility] place to live 10/19/2023 Sex and Gender Information Value Date Recorded Sex Assigned at Not on file Gender Identity Not on file Sexual Orientation Not on file documented as of this encounter Miscellaneous Notes * Telephone Encounter - Osiris Otero APRN, C.N.P., R.N. - 10/17/2023 11:39 AM CST Sent new script for 5 mg four times daily prn RRAL AGENT * Telephone Encounter - Haven Saxena R.N. - 10/16/2023 12:49 PM REFERRAL AGENT Called Elvi, she stated that on Rx instructions they do no have dose amount (5mg vs 10mg?, etc.) melonie given four times a day as needed. Please review and update RRAL AGENT * Telephone Encounter - Shital Parish - 10/16/2023 12:22 PM CST MEDICATION QUESTION What is the patient's question? Recent changes Medication name/dose: oxyCODONE (ROXICODONE) 5 mg immediate release table What pharmacy are you using today? [facility] [address] [address] Additional comments (if any): Elvi from pharmacy is needing a clarification on the medication. Callback [phone] Special calling instructions: Ok to leave detailed message on voicemail? yes Portal: N/A RRAL AGENT documented in this encounter Plan of Treatment Not on file documented as of this encounter Visit Diagnoses Not on filedocumented in this encounter Additional Health Concerns Infection Onset Date Last Indicated Resolved Time COVID19 Pending 10/18/2023 10/18/2023 10/18/2023 9 :11 PM REFERRAL AGENT documented as of this encounter Care Teams Tribal Judge Relationship Specialty Start Date End Date Osiris Otero APRN, C.N.P., R.N. [address] [place] [address] PCP - General Family Medicine 09/17/23 12/08/23 documented as of this encounter
--- OUTSIDE RECORDS SUMMARY | 2024-01-16 12:06 | XMS_ITS | Encounter Summary ---
Author Name Unknown Organization [facility] Address [address] [place] [address] Care Team Providers Care Administrative Intern Name Role Phone Osiris Otero APRN, C.N.P., R.N. Primary Care Provider Encounter Details Date Type Department Care Team (Latest Contact Info) Description 10/10/2023 11:20 AM WEED SCIENCE RESEARCH TECHNICIAN - 10/10/2023 11:59 PM [facility] Hospital Encounter Department of Laboratory Medicine in [place], [place] [address] [place] [address] Osiris Otero APRN, C.N.P., R.N. [address] [place] [phone] Cough Unspecified Type Discharge Disposition: Home or [...] 5 days. 5 tablet 0 10/10/2023 10/15/2023 furosemide (LASIX) 40 mg tablet Take 60 [...] 11/07/2023 oxyCODONE (ROXICODONE) 5 mg immediate release tabletIndications:Air Compressor Mechanic lilliana Pain/Nonacute Pain Take 1 tablet (5 [...] Procedure Name Priority Date/Time Associated Diagnosis Comments SARS CORONAVIRUS 2, PCR RAPID, V Routine 10/10/2023 11:20 AM WEED SCIENCE RESEARCH TECHNICIAN INFLUENZA A, B, RSV, PCR, POCT Routine 10/10/2023 11:20 AM WEED SCIENCE RESEARCH TECHNICIAN Cough Unspecified Type documented in this encounter Results * SARS Coronavirus 2, PCR Rapid (10/10/2023 11:20 AM WEED SCIENCE RESEARCH TECHNICIAN) SARS CoV-2, PCR, Rapid, V Undetected Undetected 10/10/2023 1:07 PM WEED SCIENCE RESEARCH TECHNICIAN NPRG Comment: ----ADDITIONAL INFORMATION---- This RT-PCR test was performed using the [employer] SARS-CoV-2 and Influenza A/B Reagent assay from [employer], which has received Emergency Use Authorization(EUA) by the U.S. Food and Drug Administration. Fact sheets for this Emergency Use Authorization (EUA) assay can be found at the following links: For Healthcare Providers: https://www.fda.gov/media/435678/download For Patients: https://www.fda.gov/media/069180/download SARS Coronavirus 2, Source, Rapid Swab, Nasopharynx 10/10/2023 12:39 PM WEED SCIENCE RESEARCH TECHNICIAN NPRG 10/10/2023 11:2 0 AM WEED SCIENCE RESEARCH TECHNICIAN 10/10/2023 12:39 PM WEED SCIENCE RESEARCH TECHNICIAN Osiris Otero APRN, C.N.P., R.N. LAB M ICROBIOLOGY - GENERAL ORDERABLES [facility] [address] [place] [address], [address] [address] * Influenza A/B and RSV, PCR, Point of Care (10/10/2023 11:20 AM WEED SCIENCE RESEARCH TECHNICIAN) Influenza A, POCT Negative Negative 10/10/2023 1:06 PM WEED SCIENCE RESEARCH TECHNICIAN NPRG Influenza B, POCT Negative Negative 10/10/2023 1:06 PM WEED SCIENCE RESEARCH TECHNICIAN NPRG Resp Syncytial Virus, POCT Negative Negative 10/10/2023 1:06 PM WEED SCIENCE RESEARCH TECHNICIAN NPRG Swab (Nasopharynx) 10/10/2023 11:20 AM WEED SCIENCE RESEARCH TECHNICIAN 10/10/2023 12:39 PM WEED SCIENCE RESEARCH TECHNICIAN Osiris Otero APRN, C.N.P., R.N. LAB P OCT ORDERABLES - DEVICE [facility]- [address] [address], [address] [address] documented in this encounter Visit Diagnoses Diagnosis Cough Unspecified Type documented in this encounter Additional Health Concerns Infection Onset Date Last Indicated Resolved Time COVID19 Pending 10/10/2023 10/10/2023 10/10/2023 1 :08 PM WEED SCIENCE RESEARCH TECHNICIAN documented as of this encounter Care Teams Administrative Intern Relationship Specialty Start Date End Date Osiris Otero APRN, C.N.P., R.N. [address] [place] [address] PCP - General Family Medicine 09/17/23 12/08/23 documented as of this encounter
== END 2024-01-09 08:12 | disposition home or self-care (01) ==
LOC: WOUND 08:11
PROVIDERS: PCP Family Medicine; Visit Provider Family Medicine
DX: M86.68 Other chronic osteomyelitis, other site (principal); L89.314 Pressure ulcer of right buttock, stage 4; L89.153 Pressure ulcer of sacral region, stage 3; L89.620 Pressure ulcer of left heel, unstageable; L03.311 Cellulitis of abdominal wall
CPT/HCPCS: 11042; 87493; 97605

== ENCOUNTER 2024-01-15 22:28 | Inpatient (IN) | payer MEDICARE, SELFPAY ==
[2024-01-15 22:35] VITALS: BP 115/73; PULSE 127; RESP 18; TEMP 36; O2SAT 97; BMI 25.8
[2024-01-15 22:55] LABS: Color Urine Dark yellow (Yellow)
--- NOTE | 2024-01-15 23:05 | ED_ITS ---
HPI - General Adult General Date Seen: 01/15/24 <Santy Ward MD - Last Filed: 01/16/24 00:51> Chief complaint: Skin/Abscess/Foreign Body <Santy Ward MD - Last Filed: 01/16/24 00:51> Stated complaint: cellulitis <Santy Ward MD - Last Filed: 01/16/24 00:51> Time Seen by Provider: 01/15/24 23:04 <Santy Ward MD - Last Filed: 01/16/24 00:51> History of Present Illness HPI narrative: 78-year-old female who is paraplegic, with a chronic indwelling catheter, wheelchair-bound and Dustin lift [facility]. They were concerned about redness on the skin of her hip spreading into her groin. She has to buttock wounds and follows with the wound clinic for them. Her wounds have not been infected lately, per nursing/daughters' report. Her daughters report they change her dressings 3 times per week. She has been on antibiotics in recent weeks including cephalexin, cefpodoxime. They were not helping. She was most recently on a course of cephalexin, prescribed in the ER last week She was most recently in the ER on 01/06 with possible urinary tract infection, as well as an area of redness on her left lower abdomen possible cellulitis. Treated with IM Rocephin in the ER and prescription for cephalexin. Urine culture grew Achromobacter zylosoxidans. Resistant to cefepime, ceftriaxone but sensitive to ceftazidime. Sensitive to imipenem. They noticed that the area of redness on her left hip and left lateral flank has been getting larger for the past couple of days, despite cephalexin. Also overnight last night she had 1 loose stool which is very atypical for her. No further diarrhea through the day. This evening she began to feel nauseous and shaky with a tremor. She is not having a fever and did not feel hot to the touch but often times nausea and tremor are early symptoms of infection and evolving sepsis. She has had a history of ?going septic? fairly rapidly in the past. No cough. No trouble breathing. No chest pain. No swelling in her legs. She still has some pain in her urethra from her Cristobal catheter which she thinks is not normal. She thinks it might be related to the UTI. <Santy Ward MD - Last Filed: 01/16/24 00:51> Related Data Home medications: Home Medications Medication Instructions Recorded Confirmed oxycodone 5 mg tablet 7.5 mg PO Q4H PRN pain 12/18/23 levofloxacin 500 mg tablet 500 mg PO DAILY 01/15/24 01/15/24 Previous Rx's Medication Instructions Recorded Lactobacillus acidophilus 0.5 mg 50 mmu cells PO TID #90 tabs 12/13/23 (100 million cell) tablet acetaminophen 500 mg capsule 1,000 mg (2 x 500 mg) PO TID PRN 12/13/23 #100 caps ascorbic acid (vitamin C) 500 mg 500 mg PO DAILY #30 tabs 12/13/23 tablet (Vitamin C) bisacodyl 10 mg rectal suppository 10 mg GA DAILY PRN constipation 12/13/23 #30 ea furosemide 40 mg tablet 40 mg PO QAM #30 tabs 12/13/23 gabapentin 300 mg capsule 300 mg PO TID #90 caps 12/13/23 loperamide 2 mg capsule 2 mg PO TID PRN loose stool #30 12/13/23 caps metoprolol succinate 50 mg capsule 50 mg PO DAILY #30 ea 12/13/23 sprinkle, ext. release 24 hr miconazole nitrate 2 % topical 1 applic topical BID PRN #85 grams 12/13/23 powder multivitamin 1 tab PO DAILY #100 tabs 12/13/23 potassium chloride 10 mEq 20 meq (2 x 10 mEq) PO BID #120 12/13/23 tablet,extended release tabs prednisone 5 mg tablet 10 mg (2 x 5 mg) PO DAILY #60 tabs 12/13/23 triamcinolone acetonide 0.1 % 1 applic topical BID PRN #80 grams 12/13/23 topical cream zinc sulfate 50 mg zinc (220 mg) 50 mg PO DAILY #30 caps 12/13/23 capsule <Santy Ward MD - Last Filed: 01/16/24 00:51> Allergies/adverse reactions: Allergies Allergy/AdvReac Type Severity Reaction Status Date / Time piperacillin Allergy Intermediate Rash Verified 01/07/24 17:30 tazobactam Allergy Intermediate Rash Verified 01/07/24 17:30 vancomycin Allergy Unknown Anaphylactic Verified 01/07/24 17:30 shock with this medication. Also intermediate manager demario <Santy Ward MD - Last Filed: 01/16/24 00:51> [facility] Medical History: Medical History (Updated 01/16/24 @ 00:50 by Santy Ward MD) Osteomyelitis ?M86.9 - Osteomyelitis, unspecified (ICD-10) Anemia ?D64.9 - Anemia, unspecified (ICD-10) Diarrhea ?R19.7 - Diarrhea, unspecified (ICD-10) Intravenous infiltration ?T80.1XXA - Vascular complications following infusion, transfusion and therapeutic injection, initial encounter (ICD-10) Neurogenic bladder ?N31.9 - Neuromuscular dysfunction of bladder, unspecified (ICD-10) Chronic, continuous use of opioids ?F11.90 - Opioid use, unspecified, uncomplicated (ICD-10) Chronic steroid use 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, stage 4 ?L89.44 - Pressure ulcer of contiguous site of back, buttock and hip, stage 4 (ICD-10) Rheumatoid arthritis ?M06.9 - Rheumatoid arthritis, unspecified (ICD-10) HTN (hypertension) ?I10 - Essential (primary) hypertension (ICD-10) Cristobal catheter in place ?Z97.8 - Presence of other specified devices (ICD-10) Sleep apnea ?G47.30 - Sleep apnea, unspecified (ICD-10) Paraplegia ?G82.20 - Paraplegia, unspecified (ICD-10) Acute on chronic anemia ?D64.9 - Anemia, unspecified (ICD-10) Paraplegia ?G82.20 - Paraplegia, unspecified (ICD-10) Chronic pain ?G89.29 - Other chronic pain (ICD-10) Tubular adenoma of colon ?D12.6 - Benign neoplasm of colon, unspecified (ICD-10) 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 - Acute transverse myelitis in demyelinating disease of central nervous system (ICD-10) Septic shock ?A41.9 - Sepsis, unspecified organism (ICD-10) ?R65.21 - Severe sepsis with septic shock (ICD-10) Recurrent urinary tract infection ?N39.0 - Urinary tract infection, site not specified (ICD-10) Osteoporosis ?M81.0 - Age-related osteoporosis without current pathological fracture (ICD- 10) History of methicillin resistant Staphylococcus aureus infection ?Z86.14 - Personal history of Methicillin resistant Staphylococcus aureus infection (ICD-10) <Santy Ward MD - Last Filed: 01/16/24 00:51> Surgical History: Surgical History Status post debridement ?Z98.890 - Other specified postprocedural states (ICD-10) <Santy Ward MD - Last Filed: 01/16/24 00:51> Social History: Social History (Updated 12/08/23 @ 23:55 by Lucía Espinoza MD) Narrative: Mary has recently been living at [facility], daughter Elvi (MDM if needed) is hoping to bring her home with instructional facilitator caregiving. has cognitive impairment. At this time (12/08/23), she is requesting DNR/DNI status. Nonsmoker, no ETOH use. What is your current living situation?: I presently have a place to live Problems where you live: no known problems Problems where you live details: NA In the past 12 months, utilities in danger of being shut off: unable to answer In past 12 months, lack of transportation kept you from medical appts, meetings, work, or getting things needed for daily living: unable to answer In the past 12 mos, have been you worried that your food would run out before you had money to buy more?: unable to answer In the past 12 mos, the food you bought just didn't last and you didn't have money to buy more?: unable to answer Highest level of school completed/degree received: decline to answer Smoking Status: Never smoker Do you use any of these nicotine containing products: None Second hand tobacco smoke exposure: No How often do you have a drink containing alcohol: never How often do you have six or more drinks on one occasion: Never AUDIT-C Alcohol total score: 0 Non-prescribed substance use: denies use Caffeine: No How often does anyone, including family, friends and others, physically hurt you : unable to answer How often does anyone, including family, friends and others, insult or talk down to you: unable to answer How often does anyone, including family, friends and others, threaten you with harm: unable to answer How often does anyone, including family, friends and others, scream or curse at you: unable to answer Little interest or pleasure in doing things: several days Feeling down, depressed, or hopeless: several days service: No <Santy Ward MD - Last Filed: 01/16/24 00:51> Exam Narrative: Exam Narrative: Constitutional: Appears well-developed and well-nourished. Alert. Conversant. She is lying back in the bed. Unable to sit up due to paraplegia. HENT: Head: Atraumatic. Nose: Nose normal. Mouth/Throat: Oral mucosa is clear and moist. no trismus. Pharynx normal. Eyes: Conjunctivae normal. EOM normal. Pupils equal, round, and reactive to light. No scleral icterus. Neck: Normal range of motion. Neck supple. No tracheal deviation present. Cardiovascular: Tachycardic, regular rhythm. No gallop. No friction rub. No murmur heard. Symmetric radial artery pulses Pulmonary/Chest: Effort normal. No stridor. No respiratory distress. No wheezes. No rales. No rhonchi . No tenderness. Abdominal: Soft. Bowel sounds normal. No distension. No mass. No tenderness. No rebound. No guarding. : Cristobal catheter in place. External anterior genitalia appears normal Musculoskeletal: RUE: Normal range of motion. No tenderness. No deformity LUE: Normal range of motion. No tenderness. No deformity RLE: Normal range of motion. No edema. No tenderness. Chronic muscle wasting and deformity from paraplegia LLE: Normal range of motion. No edema. No tenderness. Chronic muscle wasting and deformity from paraplegia Neurological: Alert and oriented to person, place, and time. Baseline strength. CN II-VII intact. No sensory deficit. GCS eye subscore is 4. GCS verbal subscore is 5. GCS motor subscore is 6. Skin: Skin exam performed with female gse mechanic. She has 2 sacral ulcers and 1 of these extending onto the posterior aspect of her right buttock. The right ulcer and buttock wounds are covered by a wound VAC. no sign of any erythema around the wound edge. There is a small 4 x 6 area of erythema on the patient's right posterolateral hip/buttock that is lateral to the right sacral ulcer. There is a 2nd a sacral ulcer more in the midline that is covered by a dressing. No surrounding erythema. There is a larger area of erythema and skin induration affecting the patient's left lateral hip that extends from the left buttock all the way up to the left lower rib edge. This is apparently been expanding since last week. It is not connected to or adjacent to her sacral ulcers. The skin is indurated. There is no palpable fluctuance. No crepitus or gas in the soft tissue. Otherwise the skin of her back is normal. Skin of her extremities is warm and dry. No rash noted. No pallor. Normal capillary re fill. Psychiatric: Normal mood. Normal affect. <Santy Ward MD - Last Filed: 01/16/24 00:51> Const: Vital Signs, click to edit/add: Vital Signs - 24 hr 01/15/24 22:35 01/16/24 01:00 01/16/24 01:59 Temperature 96.8 F L Pulse Rate 124 H Pulse Rate [Pulse Oximeter] 127 H 122 H Respiratory Rate 18 14 16 Blood Pressure 117/64 Blood Pressure [Ri ght Upper Arm] 115/73 117/64 Pulse Oximetry 97 95 94 Oxygen Delivery Me thod Room Air Room Air Oxygen Flow Rate Fraction of Inspir ed Oxygen 01/16/24 02:15 01/16/24 02:29 01/16/24 02:30 Temperature Pulse Rate 117 H 118 H 125 H Pulse Rate [Pulse Oximeter] Respiratory Rate 16 Blood Pressure 108/49 L Blood Pressure [Ri ght Upper Arm] Pulse Oximetry 95 98 98 Oxygen Delivery Me thod Oxygen Flow Rate Fraction of Inspir ed Oxygen 01/16/24 02:49 01/16/24 03:13 01/16/24 03:25 Temperature Pulse Rate 105 H Pulse Rate [Pulse Oximeter] Respiratory Rate Blood Pressure Blood Pressure [Ri ght Upper Arm] Pulse Oximetry 93 98 Oxygen Delivery Me thod Nasal Cannula Nasal Cannula Oxygen Flow Rate 2 Fraction of Inspir ed Oxygen 2 <Santy Ward MD - Last Filed: 01/16/24 00:51> Vital Signs, click to edit/add: Vital Signs - 24 hr 01/15/24 22:35 01/16/24 01:00 01/16/24 01:59 Temperature 96.8 F L Pulse Rate 124 H Pulse Rate [Pulse Oximeter] 127 H 122 H Respiratory Rate 18 14 16 Blood Pressure 117/64 Blood Pressure [Ri ght Upper Arm] 115/73 117/64 Pulse Oximetry 97 95 94 Oxygen Delivery Me thod Room Air Room Air Oxygen Flow Rate Fraction of Inspir ed Oxygen 01/16/24 02:15 01/16/24 02:29 01/16/24 02:30 Temperature Pulse Rate 117 H 118 H 125 H Pulse Rate [Pulse Oximeter] Respiratory Rate 16 Blood Pressure 108/49 L Blood Pressure [Ri ght Upper Arm] Pulse Oximetry 95 98 98 Oxygen Delivery Me thod Oxygen Flow Rate Fraction of Inspir ed Oxygen 01/16/24 02:49 01/16/24 03:13 01/16/24 03:25 Temperature Pulse Rate 105 H Pulse Rate [Pulse Oximeter] Respiratory Rate Blood Pressure Blood Pressure [Ri ght Upper Arm] Pulse Oximetry 93 98 Oxygen Delivery Me thod Nasal Cannula Nasal Cannula Oxygen Flow Rate 2 Fraction of Inspir ed Oxygen 2 <Priscilla Oreilly MD - Last Filed: 01/16/24 04:03> Course Course ED Course: Recheck-12:30 a.m.. Heart rate down to 110. Has received only about 200 mL of her 1st bolus. Imipenem coming from pharmacy. Will order oxycodone because of chronic pain and acetaminophen for sugars to help treat for possible fever (does not have fever yet). Patient and daughters were initially resistant to blood cultures but given annmarie vated white count the consent to 1 blood culture, if it can be drawn by [facility]. <Santy Ward MD - Last Filed: 01/16/24 00:51> Reevaluation(s) Time of Reevaluation #1: 03:51 <Priscilla Oreilly MD - Last Filed: 01/16/24 04:03> Reevaluation #1: Updated patient and family on findings. Leukocytosis, improving lactate. Tachycardia starting to improve. CT mainly showing cellulitis with a few other incidental findings but with no abscess pneumonia diverticulitis or other obvious source of infection. Cultures are pending. Recommend hospitalization. I do think that she is of appropriate caliber to be hospitalized at our facility. Broad-spectrum antibiotics have already been started. Potassium replacement is underway. Stress dose steroid has been given. Accepted by hospitalist, expecting a 2 hour delay prior to their assessment. We did discuss code status and she wishes to be DNR, DNI. Family was in the room for that discussion and they states that that was her previous wish as well. <Priscilla Oreilly MD - Last Filed: 01/16/24 04:03> Vital Signs Vital signs: Initial Vital Signs Temperature 96.8 F L 01/15/24 22:35 Temperature Source Temporal Artery Scan 01/15/24 22:35 Pulse Rate 127 H 01/15/24 22:35 Pulse Rhythm Regular 01/15/24 22:35 Respiratory Rate 18 01/15/24 22:35 Blood Pressure 115/73 01/15/24 22:35 Blood Pressure Mean 87 01/15/24 22:35 Blood Pressure Position Sitting 01/15/24 22:35 Pulse Oximetry 97 01/15/24 22:35 Oxygen Delivery Method Room Air 01/15/24 22:35 Vital Signs Temperature 96.8 F L 01/15/24 22:35 Pulse Rate 127 H 01/15/24 22:35 Respiratory Rate 18 01/15/24 22:35 Blood Pressure 115/73 01/15/24 22:35 Pulse Oximetry 97 01/15/24 22:35 Oxygen Delivery Method Room Air 01/15/24 22:35 Temperature 96.8 F L 01/15/24 22:35 Pulse Rate 105 H 01/16/24 02:49 Respiratory Rate 16 01/16/24 02:29 Blood Pressure 108/49 L 01/16/24 02:29 Pulse Oximetry 98 01/16/24 03:13 Oxygen Delivery Method Nasal Cannula 01/16/24 03:25 Oxygen Flow Rate 2 01/16/24 03:25 Fraction of Inspired Oxygen 2 01/16/24 03:13 <Santy Ward MD - Last Filed: 01/16/24 00:51> Initial Vital Signs Temperature 96.8 F L 01/15/24 22:35 Temperature Source Temporal Artery Scan 01/15/24 22:35 Pulse Rate 127 H 01/15/24 22:35 Pulse Rhythm Regular 01/15/24 22:35 Respiratory Rate 18 01/15/24 22:35 Blood Pressure 115/73 01/15/24 22:35 Blood Pressure Mean 87 01/15/24 22:35 Blood Pressure Position Sitting 01/15/24 22:35 Pulse Oximetry 97 01/15/24 22:35 Oxygen Delivery Method Room Air 01/15/24 22:35 Vital Signs Temperature 96.8 F L 01/15/24 22:35 Pulse Rate 127 H 01/15/24 22:35 Respiratory Rate 18 01/15/24 22:35 Blood Pressure 115/73 01/15/24 22:35 Pulse Oximetry 97 01/15/24 22:35 Oxygen Delivery Method Room Air 01/15/24 22:35 Temperature 96.8 F L 01/15/24 22:35 Pulse Rate 105 H 01/16/24 02:49 Respiratory Rate 16 01/16/24 02:29 Blood Pressure 108/49 L 01/16/24 02:29 Pulse Oximetry 98 01/16/24 03:13 Oxygen Delivery Method Nasal Cannula 01/16/24 03:25 Oxygen Flow Rate 2 01/16/24 03:25 Fraction of Inspired Oxygen 2 01/16/24 03:13 <Priscilla Oreilly MD - Last Filed: 01/16/24 04:03> Medications Administered Medications: Generic Name Dose Route Start Last Admin Trade Name Freq PRN Reason Stop Dose Admin Imipenem/Cilastatin Sodium 1, 250 mls @ 250 mls/hr 01/15/24 23:35 01/16/24 03:00 000 mg/ Sodium Chloride IVPB Infused Q8H ESTELA Infusion Potassium Chloride 10 meq in 100 mls @ 100 mls/hr 01/16/24 01:00 01/16/24 03:12 Potassium Chloride IVPB 01/16/24 04:59 100 mls/hr Q90M ESTELA Administration Discontinued Medications Generic Name Dose Route Start Last Admin Trade Name Freq PRN Reason Stop Dose Admin Acetaminophen 1,000 mg 01/16/24 00:43 01/16/24 01:08 Acetaminophen 500 Mg Tablet PO 01/16/24 00:44 Not Given ONCE ONE Hydrocortisone Sodium Succinate 100 mg 01/16/24 00:52 01/16/24 01:38 Hydrocortisone Sod Succinate 50 Mg/Ml Inj IVP 01/16/24 00:53 100 mg ONCE ONE Administration Sodium Chloride 1,000 mls @ 1,000 mls/hr 01/16/24 00:30 01/16/24 03:12 0.9 % Sodium Chloride 1000 Ml IV 01/16/24 01:29 Infused .Q1H ESTELA Infusion Ondansetron HCl 4 mg 01/16/24 02:28 01/16/24 02:36 Ondansetron Odt 4 Mg Tab PO 01/16/24 02:29 4 mg ONCE ONE Administration Oxycodone HCl 7.5 mg 01/16/24 00:43 01/16/24 01:05 Oxycodone 5 Mg Tablet PO 01/16/24 00:44 7.5 mg ONCE ONE Administration Potassium Chloride 40 meq 01/16/24 00:49 01/16/24 01:38 Potassium Chloride 10 Meq Capsule Er PO 01/16/24 00:50 40 meq ONCE ONE Administration <Santy Ward MD - Last Filed: 01/16/24 00:51> Generic Name Dose Route Start Last Admin Trade Name Freq PRN Reason Stop Dose Admin Imipenem/Cilastatin Sodium 1, 250 mls @ 250 mls/hr 01/15/24 23:35 01/16/24 03:00 000 mg/ Sodium Chloride IVPB Infused Q8H ESTELA Infusion Potassium Chloride 10 meq in 100 mls @ 100 mls/hr 01/16/24 01:00 01/16/24 03:12 Potassium Chloride IVPB 01/16/24 04:59 100 mls/hr Q90M ESTELA Administration Discontinued Medications Generic Name Dose Route Start Last Admin Trade Name Freq PRN Reason Stop Dose Admin Acetaminophen 1,000 mg 01/16/24 00:43 01/16/24 01:08 Acetaminophen 500 Mg Tablet PO 01/16/24 00:44 Not Given ONCE ONE Hydrocortisone Sodium Succinate 100 mg 01/16/24 00:52 01/16/24 01:38 Hydrocortisone Sod Succinate 50 Mg/Ml Inj IVP 01/16/24 00:53 100 mg ONCE ONE Administration Sodium Chloride 1,000 mls @ 1,000 mls/hr 01/16/24 00:30 01/16/24 03:12 0.9 % Sodium Chloride 1000 Ml IV 01/16/24 01:29 Infused .Q1H ESTELA Infusion Ondansetron HCl 4 mg 01/16/24 02:28 01/16/24 02:36 Ondansetron Odt 4 Mg Tab PO 01/16/24 02:29 4 mg ONCE ONE Administration Oxycodone HCl 7.5 mg 01/16/24 00:43 01/16/24 01:05 Oxycodone 5 Mg Tablet PO 01/16/24 00:44 7.5 mg ONCE ONE Administration Potassium Chloride 40 meq 01/16/24 00:49 01/16/24 01:38 Potassium Chloride 10 Meq Capsule Er PO 01/16/24 00:50 40 meq ONCE ONE Administration <Priscilla Oreilly MD - Last Filed: 01/16/24 04:03> Medical Decision Making MDM Narrative Medical decision making narrative: 78-year-old female with paraplegia and complex medical history presenting to the ER today with chills, shivering, nausea. Concern is for possible evolving infection and sepsis. She is tachycardic but fortunately has stable blood pressure lower and normal mentation. She is not febrile. She does have marked leukocytosis with a white count of 30. This is up from her baseline leukocytosis. Suspect source of sepsis is either a left hip cellulitis or possibly UTI. Based on urine culture drawn last week, will treat with imipenem to cover urinary pathogens. She has allergies to vancomycin and Zosyn. I had initially ordered IV antibiotics, lab workup, blood cultures as part of her workup for sepsis. Patient and family were initially resistant blood cultures but ultimately consented to 1 culture this was drawn prior to initiati on of IV antibiotics. She presented with sinus tachycardia and heart rate of 127. Is improved to 110 with the initial infusion of a few 100 mL saline. Will continue to monitor. Venous lactic acid is elevated at 2.4. CBC shows hemoglobin of 12.9 which is actually up by 3 g from 9.9, suggesting possible dehydration. IV fluids infusing She did have 1 episode of diarrhea at about 3:00 a.m. this morning but no further diarrhea. Given diarrhea with current antibiotics, consider C diff. C diff culture ordered. Patient's family reports that she recover from COVID about 3 weeks ago. She is not coughing or short of breath. Oxygen saturations are normal (in the low 90s) on room air Given marked leukocytosis with a fairly widespread cellulitis on her left hip, although there is no exam findings to suggest gas in the soft tissue I will order CT chest, abdomen, pelvis to evaluate for other deeper infections, abscesses, necrotizing infections. I have discussed this patient with my partner, Dr. Oreilly. She graciously will take sign-out and follow-up on the results of the outstanding labs and CT. Patient will definitively require hospitalization for IV antibiotics. Assuming she does not require subspecialty care, and does not develop septic shock, she would be appropriate for admission to [facility]. Patient and her family would prefer hospitalization at [facility] (if appropriate) but would accept transfer if indicated. <Santy Ward MD - Last Filed: 01/16/24 00:51> Lab Data Lab results reviewed: Yes I reviewed the patient's lab results <Priscilla Oreilly MD - Last Filed: 01/16/24 04:03> Lab results narrative: Marked leukocytosis, creatinine looking okay. Note that her lower white count is elevated but this is even out of proportion. Elevated lactic 8, improving on 2nd lab draw after IV fluid. <Priscilla Oreilly MD - Last Filed: 01/16/24 04:03> Labs: Lab Results 01/15/24 01/15/24 01/15/24 Range/Units 22:55 23:40 23:45 WBC 30.50 H* (4.50-11.00) K/uL RBC 4.85 (4.00-5.20) m/uL Hgb 12.9 (12.0-16.0) gm/dL Hct 42.1 (33.0-51.0) % MCV 87 (80-100) fL MCH 27 (26-34) pg MCHC 31 L (32-36) gm/dL RDW Coeff of Lynette 16.3 H (11.5-15.5) % Plt Count 294 (140-440) K/uL Neut % (Auto) 83.4 H (42.0-72.0) % Lymph % (Auto) 11.2 L (20-44) % [place] % (Auto) 3.7 (0.0-11.0) % Eos % (Auto) 0.1 (0.0-7.0) % Baso % (Auto) 0.1 (0.0-3.0) % Neut # (Auto) 25.40 H (1.7-7.0) K/uL Lymph # (Auto) 3.40 H (0.90-2.90) K/uL [place] # (Auto) 1.10 H (0.00-0.90) K/UL Eos # (Auto) 0.00 (0.00-0.50) K/uL Baso # (Auto) 0.00 (0.00-0.30) K/uL Abs Immat Gran (auto) 0.50 H (0.00-0.30) K/uL Imm/Tot Granulo (auto) 1.5 % Diff Slide Review Acceptable Review (Acceptable) Sodium 133 L (135-149) mmol/L Potassium 2.6 L* (3.6-5.1) mmol/L Chloride 93 L (96-114) mmol/L Carbon Dioxide 30 (20-32) mmol/L Anion Gap 10 (7-15) mEq/L BUN 21 (7-30) mg/dL Creatinine 0.3 L (0.5-1.5) mg/dL Estimated Creat Clear 33.84 Estimated GFR 109 ml/min Glucose 77 (60-115) mg/dL Lactate 2.4 H (0.5-1.9) mmol/L Calcium 8.3 L (8.4-10.6) mg/dL Urine Color Dark yellow (Yellow) Urine Appearance Clear (Clear) Urine pH 5.5 (5.0-8.5) Ur Specific [place] 1.015 (1.000-1.030) Urine Protein Trace A (Negative) Urine Glucose (UA) Negative (Negative) Urine Ketones 1+ A (Negative) Urine Blood Trace-intact A (Negative) Urine Nitrite Negative (Negative) Urine Bilirubin 1+ A (Negative) Urine Urobilinogen 0.2 (0.2-1.0) Ur Leukocyte Esterase Trace A (Negative) Urine RBC 0-2 (0-2) Urine WBC 2-5 (0-5) Ur Squamous Epith Cells Few (None-Few) Urine Bacteria Few A (None) SARS-CoV-2 (PCR) Negative SARS-CoV-2 (Negative) Influenza Type A (PCR) Negative PCR FLU A (Negative) Influenza Type B (PCR) Negative PCR FLU B (Negative) RSV (PCR) Negative PCR RSV (Negative) SARS-CoV-2 Ag (Rapid) Cancelled 01/16/24 Range/Units 01:35 WBC (4.50-11.00) K/uL RBC (4.00-5.20) m/uL Hgb (12.0-16.0) gm/dL Hct (33.0-51.0) % MCV (80-100) fL MCH (26-34) pg MCHC (32-36) gm/dL RDW Coeff of Lynette (11.5-15.5) % Plt Count (140-440) K/uL Neut % (Auto) (42.0-72.0) % Lymph % (Auto) (20-44) % [place] % (Auto) (0.0-11.0) % Eos % (Auto) (0.0-7.0) % Baso % (Auto) (0.0-3.0) % Neut # (Auto) (1.7-7.0) K/uL Lymph # (Auto) (0.90-2.90) K/uL [place] # (Auto) (0.00-0.90) K/UL Eos # (Auto) (0.00-0.50) K/uL Baso # (Auto) (0.00-0.30) K/uL Abs Immat Gran (auto) (0.00-0.30) K/uL Imm/Tot Granulo (auto) % Diff Slide Review (Acceptable) Sodium (135-149) mmol/L Potassium (3.6-5.1) mmol/L Chloride (96-114) mmol/L Carbon Dioxide (20-32) mmol/L Anion Gap (7-15) mEq/L BUN (7-30) mg/dL Creatinine (0.5-1.5) mg/dL Estimated Creat Clear Estimated GFR ml/min Glucose (60-115) mg/dL Lactate 1.2 (0.5-1.9) mmol/L Calcium (8.4-10.6) mg/dL Urine Color (Yellow) Urine Appearance (Clear) Urine pH (5.0-8.5) Ur Specific [place] (1.000-1.030) Urine Protein (Negative) Urine Glucose (UA) (Negative) Urine Ketones (Negative) Urine Blood (Negative) Urine Nitrite (Negative) Urine Bilirubin (Negative) Urine Urobilinogen (0.2-1.0) Ur Leukocyte Esterase (Negative) Urine RBC (0-2) Urine WBC (0-5) Ur Squamous Epith Cells (None-Few) Urine Bacteria (None) SARS-CoV-2 (PCR) (Negative) Influenza Type A (PCR) (Negative) Influenza Type B (PCR) (Negative) RSV (PCR) (Negative) SARS-CoV-2 Ag (Rapid) <Santy Ward MD - Last Filed: 01/16/24 00:51> Lab Results 01/15/24 01/15/24 01/15/24 Range/Units 22:55 23:40 23:45 WBC 30.50 H* (4.50-11.00) K/uL RBC 4.85 (4.00-5.20) m/uL Hgb 12.9 (12.0-16.0) gm/dL Hct 42.1 (33.0-51.0) % MCV 87 (80-100) fL MCH 27 (26-34) pg MCHC 31 L (32-36) gm/dL RDW Coeff of Lynette 16.3 H (11.5-15.5) % Plt Count 294 (140-440) K/uL Neut % (Auto) 83.4 H (42.0-72.0) % Lymph % (Auto) 11.2 L (20-44) % [place] % (Auto) 3.7 (0.0-11.0) % Eos % (Auto) 0.1 (0.0-7.0) % Baso % (Auto) 0.1 (0.0-3.0) % Neut # (Auto) 25.40 H (1.7-7.0) K/uL Lymph # (Auto) 3.40 H (0.90-2.90) K/uL [place] # (Auto) 1.10 H (0.00-0.90) K/UL Eos # (Auto) 0.00 (0.00-0.50) K/uL Baso # (Auto) 0.00 (0.00-0.30) K/uL Abs Immat Gran (auto) 0.50 H (0.00-0.30) K/uL Imm/Tot Granulo (auto) 1.5 % Diff Slide Review Acceptable Review (Acceptable) Sodium 133 L (135-149) mmol/L Potassium 2.6 L* (3.6-5.1) mmol/L Chloride 93 L (96-114) mmol/L Carbon Dioxide 30 (20-32) mmol/L Anion Gap 10 (7-15) mEq/L BUN 21 (7-30) mg/dL Creatinine 0.3 L (0.5-1.5) mg/dL Estimated Creat Clear 33.84 Estimated GFR 109 ml/min Glucose 77 (60-115) mg/dL Lactate 2.4 H (0.5-1.9) mmol/L Calcium 8.3 L (8.4-10.6) mg/dL Urine Color Dark yellow (Yellow) Urine Appearance Clear (Clear) Urine pH 5.5 (5.0-8.5) Ur Specific [place] 1.015 (1.000-1.030) Urine Protein Trace A (Negative) Urine Glucose (UA) Negative (Negative) Urine Ketones 1+ A (Negative) Urine Blood Trace-intact A (Negative) Urine Nitrite Negative (Negative) Urine Bilirubin 1+ A (Negative) Urine Urobilinogen 0.2 (0.2-1.0) Ur Leukocyte Esterase Trace A (Negative) Urine RBC 0-2 (0-2) Urine WBC 2-5 (0-5) Ur Squamous Epith Cells Few (None-Few) Urine Bacteria Few A (None) SARS-CoV-2 (PCR) Negative SARS-CoV-2 (Negative) Influenza Type A (PCR) Negative PCR FLU A (Negative) Influenza Type B (PCR) Negative PCR FLU B (Negative) RSV (PCR) Negative PCR RSV (Negative) SARS-CoV-2 Ag (Rapid) Cancelled 01/16/24 Range/Units 01:35 WBC (4.50-11.00) K/uL RBC (4.00-5.20) m/uL Hgb (12.0-16.0) gm/dL Hct (33.0-51.0) % MCV (80-100) fL MCH (26-34) pg MCHC (32-36) gm/dL RDW Coeff of Lynette (11.5-15.5) % Plt Count (140-440) K/uL Neut % (Auto) (42.0-72.0) % Lymph % (Auto) (20-44) % [place] % (Auto) (0.0-11.0) % Eos % (Auto) (0.0-7.0) % Baso % (Auto) (0.0-3.0) % Neut # (Auto) (1.7-7.0) K/uL Lymph # (Auto) (0.90-2.90) K/uL [place] # (Auto) (0.00-0.90) K/UL Eos # (Auto) (0.00-0.50) K/uL Baso # (Auto) (0.00-0.30) K/uL Abs Immat Gran (auto) (0.00-0.30) K/uL Imm/Tot Granulo (auto) % Diff Slide Review (Acceptable) Sodium (135-149) mmol/L Potassium (3.6-5.1) mmol/L Chloride (96-114) mmol/L Carbon Dioxide (20-32) mmol/L Anion Gap (7-15) mEq/L BUN (7-30) mg/dL Creatinine (0.5-1.5) mg/dL Estimated Creat Clear Estimated GFR ml/min Glucose (60-115) mg/dL Lactate 1.2 (0.5-1.9) mmol/L Calcium (8.4-10.6) mg/dL Urine Color (Yellow) Urine Appearance (Clear) Urine pH (5.0-8.5) Ur Specific [place] (1.000-1.030) Urine Protein (Negative) Urine Glucose (UA) (Negative) Urine Ketones (Negative) Urine Blood (Negative) Urine Nitrite (Negative) Urine Bilirubin (Negative) Urine Urobilinogen (0.2-1.0) Ur Leukocyte Esterase (Negative) Urine RBC (0-2) Urine WBC (0-5) Ur Squamous Epith Cells (None-Few) Urine Bacteria (None) SARS-CoV-2 (PCR) (Negative) Influenza Type A (PCR) (Negative) Influenza Type B (PCR) (Negative) RSV (PCR) (Negative) SARS-CoV-2 Ag (Rapid) <Priscilla Oreilly MD - Last Filed: 01/16/24 04:03> Imaging Data CT Chest/Ab/Pelvis: Attestation: I have reviewed the pertinent imaging results. <Priscilla Oreilly MD - Last Filed: 01/16/24 04:03> Radiologist's impression: IMPRESSION: 1. Left flank skin thickening with subcutaneous stranding, correlate for cellulitis. No drainable fluid collection. 2. Seton in the right perirectal region. Increased adjacent subcutaneous soft tissue gas. 3. Mild urinary bladder wall thickening, nonspecific correlate with urinalysis to evaluate for cystitis. 4. No acute pulmonary process. 5. Other incidental findings as above, similar to prior. <Priscilla Oreilly MD - Last Filed: 01/16/24 04:03> ECG Data Attestation: I personally reviewed and interpreted this ECG as follows: <Priscilla Oreilly MD - Last Filed: 01/16/24 04:03> Prior ECG tracings: available for review <Priscilla Oreilly MD - Last Filed: 01/16/24 04:03> Interpretation: Initial EKG rate of 120, sinus tachycardia with a chronic right bundle branch block. Couple of PVCs also present. Similar to previous. <Priscilla Oreilly MD - Last Filed: 01/16/24 04:03> Discharge Plan Discharge Clinical Impression: Cellulitis, Sepsis, Acute UTI, Acute hypokalemia <Santy Ward MD - Last Filed: 01/16/24 00:51> Patient Disposition: Admitted As Inpatient <Santy Ward MD - Last Filed: 01/16/24 00:51> Condition: Guarded <Santy Ward MD - Last Filed: 01/16/24 00:51>
[2024-01-15 23:56] LABS: Basophils Percent Auto 0.1 % (0.0-3.0); Eosinophils Percent Auto 0.1 % (0.0-7.0); Hematocrit 42.1 % (33.0-51.0); Hemoglobin* 12.9 gm/dL (12.0-16.0); Immature Granulocytes Pct Auto 1.5 %; Lymphocytes Percent Auto 11.2 % (20-44); Mean Corpuscular HGB Conc 31 gm/dL (32-36); Mean Corpuscular Hemoglobin 27 pg (26-34); Mean Corpuscular Volume 87 fL (80-100); Monocytes Percent Auto 3.7 % (0.0-11.0); Neutrophils Percent Auto 83.4 % (42.0-72.0); Platelet Count* 294 K/uL (140-440); RDW Coefficient of Variation % 16.3 % (11.5-15.5); Red Blood Count 4.85 m/uL (4.00-5.20)
[2024-01-16] VITALS (17 sets, daily range): BP systolic 94–142; BP diastolic 45–64; PULSE 86–125; RESP 14–18; TEMP 36.1–36.7; O2SAT 93–98; BMI 27.0; BMI 26.9
--- NOTE | 2024-01-16 00:15 | ED.NURSE ---
Per , cancel COVID/flu/RSV and COVID antigen. Pt refuses blood cultures at this time. updated.
[2024-01-16 00:19] LABS: Lactate Sepsis w/Reflex* 2.4 mmol/L (0.5-1.9)
[2024-01-16 00:24] LABS: Slide Review Reflex Yes
[2024-01-16] MEDS: 0.9 % SODIUM CHLORIDE 1000 ml 1,000 ML IV (00:26)
--- NOTE | 2024-01-16 00:28 | CT_ITS ---
Patient: DAYNA LIVINGSTON Facility:?[facility] Patient ID:?[id number] Site Patient ID:?[id number]. Site :?[id number] Study:?CT-Chest/Abd/Pelvis w/65cc's Isovue 370-01/16/2024 1:52:04 AM Ordering Physician:VIVIEN Final Report: INDICATION: Left flank cellulitis, marked leukocytosis, tachycardia. TECHNIQUE: CT chest, abdomen, and pelvis acquired with 65 cc Isovue 370 IV contrast. COMPARISON: 12/08/2023. FINDINGS: CHEST: Lungs and pleura: Mild bibasilar atelectasis/scarring, unchanged. No acute infiltrates. No suspicious nodules. No pleural effusions or pneumothorax. Cardiovascular structures: Heart size is normal. Thoracic aorta is normal in caliber. Stable enlarged main pulmonary artery, suggestive of underlying pulmonary hypertension. Aortic, mitral annular, and coronary artery calcifications. Mediastinum and farooq: No mass or adenopathy. Chest wall and axilla: No mass or adenopathy. Bones: Diffuse osteopenia. Scoliosis with thoracolumbar spinal fusion. ABDOMEN AND PELVIS: Liver: Unremarkable. Gallbladder and bile ducts: Status post cholecystectomy. Spleen: Unremarkable. Adrenal glands: Unremarkable. Pancreas: Atrophy of the pancreas. Kidneys: Large nonobstructive renal calculi in the right renal pelvis, unchanged. No obstructive uropathy. No hydronephrosis. GI tract: Seton in the right perirectal region. No definite abscess identified. Increased subcutaneous soft tissue gas anterolateral to the seton. Scattered colonic diverticula without evidence of diverticulitis. Moderate to large colonic stool load. No evidence of obstruction. Lymph nodes: Unremarkable. Vascular structures: Scattered atherosclerotic calcifications. Stable ectatic infrarenal abdominal aorta measuring 2.2 cm. Miscellaneous: Persistent deep right ischial decubitus ulcer. Left flank skin thickening with subcutaneous stranding. No free air or significant free fluid. Pelvic organs: Cristobal catheter in place. Mild urinary bladder wall thickening. Decreased size of left adnexal low-density lesion measuring 2.5 cm, previously 2.9 cm when measured in a similar fashion. Bones: Diffuse osteopenia. Scoliosis with thoracolumbar spinal fusion. Similar erosion of the right ischial tuberosity. IMPRESSION: 1. Left flank skin thickening with subcutaneous stranding, correlate for cellulitis. No drainable fluid collection. 2. Seton in the right perirectal region. Increased adjacent subcutaneous soft tissue gas. 3. Mild urinary bladder wall thickening, nonspecific correlate with urinalysis to evaluate for cystitis. 4. No acute pulmonary process. 5. Other incidental findings as above, similar to prior. Please note that all CT scans at this facility use dose modulation, iterative reconstruction, and/or weight-based dosing when appropriate to reduce radiation dose to as low as reasonably achievable. Dictated by Willy Adame MD @ 01/16/2024 3:32:05 AM Signed by:?Willy Adame MD @01/16/2024 3:32:05 AM (Electronic Signature)
[2024-01-16 00:30] LABS: Slide Review Acceptable Review (Acceptable)
[2024-01-16 00:36] LABS: Chloride* 93 mmol/L (96-114)
[2024-01-16 00:37] LABS: Sodium* 133 mmol/L (135-149)
[2024-01-16 00:39] LABS: Creatinine* 0.3 mg/dL (0.5-1.5); Est. Creatinine Clearance* 33.84; Estimated Glomerular Filt Rate 109 ml/min
[2024-01-16 00:40] LABS: Anion Gap 10 mEq/L (7-15); Blood Urea Nitrogen* 21 mg/dL (7-30); Calcium* 8.3 mg/dL (8.4-10.6); Carbon Dioxide* 30 mmol/L (20-32); Glucose* 77 mg/dL (60-115)
[2024-01-16 00:41] LABS: Potassium* 2.6 mmol/L (3.6-5.1)
[2024-01-16 00:53] LABS: Appearance Urine Clear (Clear); Bilirubin Urine 1+ (Negative); Blood Urine Trace-intact (Negative); Glucose Urine Negative (Negative); Ketones Urine 1+ (Negative); Leukocyte Esterase Urine Trace (Negative); Nitrite Urine Negative (Negative); Protein Urine Trace (Negative); Specific Gravity Urine 1.015 (1.000-1.030); Urobilinogen Urine 0.2 (0.2-1.0); pH Urine 5.5 (5.0-8.5)
[2024-01-16] MEDS: OXYCODONE 5 MG TABLET 7.5 MG PO ×2 (01:05→15:05)
[2024-01-16 01:09] LABS: RBC Urine 0-2 (0-2)
[2024-01-16 01:10] LABS: Bacteria Urine Few; Squamous Epithelial Cell Urine Few (None-Few)
[2024-01-16] MEDS: POTASSIUM CHLORIDE 10 MEQ CAPSULE ER 40 MEQ PO (01:38)
[2024-01-16] MEDS: HYDROCORTISONE SOD SUCCINATE 50 MG/ML inj 100 MG IVP (01:38)
[2024-01-16 01:39] LABS: Lactate Sepsis 2 Hour 1.2 mmol/L (0.5-1.9)
[2024-01-16 02:22] LABS: PCR FLU A Negative PCR FLU A (Negative); PCR FLU B Negative PCR FLU B (Negative); PCR RSV Negative PCR RSV (Negative); SARS PCR* Negative SARS-CoV-2 (Negative)
[2024-01-16] MEDS: ONDANSETRON ODT 4 MG TAB PO (02:36)
[2024-01-16] MEDS: POTASSIUM CHLORIDE 10 MEQ/100 ML PIGGYBACK 100 MEQ IVPB ×2 (03:12→06:12)
--- NOTE | 2024-01-16 06:06 | PM.IMHP1 ---
Hospitalist- H&P: HPI History of Present Illness Date Seen: 01/16/24 Chief complaint: cellulitis Narrative: Prerna Major is a 78 year old female who presented to [place] on 01/15/2024 for further evaluation and management of cellulitis. Patient reports that for the past several days she has experienced a redness and tenderness to her left flank and her left lower extremity. Patient evaluated earlier in the week and diagnosed with a urinary tract infection as well as cellulitis and put on a course of oral antibiotics after a dose of IV Rocephin.. He reports that her leg redness has improved however flank redness has spread. Denies any current urinary symptoms. She does have a complex past medical history including paraplegia with sacral wound as well as neurogenic bladder with chronic indwelling Cristobal catheter. Workup in the ED: White blood cell count noted to be 30,500, hemoglobin of 12.9 which is above her baseline likely indicating dehydration. Chemistry showed a sodium of 133, potassium of 2.6, chloride of 93. Creatinine within normal limits. Urine study showed ketones as well as trace leukocyte esterase however improved compared to recent studies. CT chest/abdomen/pelvis completed today which showed concerns of cellulitis however no other acute pathology reported. Patient was given a dose of imipenem in the emergency department as well as a stress dose of steroids and 1 L of fluids. She was also given oral and IV potassium replacement. Review of Systems Status of ROS: Reports: 10 or more systems reviewed and unremarkable except as noted in History and below [facility] Medical History (Updated 01/16/24 @ 00:50 by Santy Ward MD) Osteomyelitis ?M86.9 - Osteomyelitis, unspecified (ICD-10) Anemia ?D64.9 - Anemia, unspecified (ICD-10) Diarrhea ?R19.7 - Diarrhea, unspecified (ICD-10) Intravenous infiltration ?T80.1XXA - Vascular complications following infusion, transfusion and therapeutic injection, initial encounter (ICD-10) Neurogenic bladder ?N31.9 - Neuromuscular dysfunction of bladder, unspecified (ICD-10) Chronic, continuous use of opioids ?F11.90 - Opioid use, unspecified, uncomplicated (ICD-10) Chronic steroid use 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, stage 4 ?L89.44 - Pressure ulcer of contiguous site of back, buttock and hip, stage 4 (ICD-10) Rheumatoid arthritis ?M06.9 - Rheumatoid arthritis, unspecified (ICD-10) HTN (hypertension) ?I10 - Essential (primary) hypertension (ICD-10) Cristobal catheter in place ?Z97.8 - Presence of other specified devices (ICD-10) Sleep apnea ?G47.30 - Sleep apnea, unspecified (ICD-10) Paraplegia ?G82.20 - Paraplegia, unspecified (ICD-10) Acute on chronic anemia ?D64.9 - Anemia, unspecified (ICD-10) Paraplegia ?G82.20 - Paraplegia, unspecified (ICD-10) Chronic pain ?G89.29 - Other chronic pain (ICD-10) Tubular adenoma of colon ?D12.6 - Benign neoplasm of colon, unspecified (ICD-10) 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 - Acute transverse myelitis in demyelinating disease of central nervous system (ICD-10) Septic shock ?A41.9 - Sepsis, unspecified organism (ICD-10) ?R65.21 - Severe sepsis with septic shock (ICD-10) Recurrent urinary tract infection ?N39.0 - Urinary tract infection, site not specified (ICD-10) Osteoporosis ?M81.0 - Age-related osteoporosis without current pathological fracture (ICD-10) History of methicillin resistant Staphylococcus aureus infection ?Z86.14 - Personal history of Methicillin resistant Staphylococcus aureus infection (ICD-10) Surgical History Status post debridement ?Z98.890 - Other specified postprocedural states (ICD-10) Social History (Updated 12/08/23 @ 23:55 by Lucía Espinoza MD) Narrative: Mary has recently been living at [facility], daughter Elvi (MDM if needed) is hoping to bring her home with time lock expert caregiving. has cognitive impairment. At this time (12/08/23), she is requesting DNR/DNI status. Nonsmoker, no ETOH use. What is your current living situation?: I presently have a place to live Problems where you live: no known problems Problems where you live details: NA In the past 12 months, utilities in danger of being shut off: unable to answer In past 12 months, lack of transportation kept you from medical appts, meetings, work, or getting things needed for daily living: unable to answer In the past 12 mos, have been you worried that your food would run out before you had money to buy more?: unable to answer In the past 12 mos, the food you bought just didn't last and you didn't have money to buy more?: unable to answer Highest level of school completed/degree received: decline to answer Smoking Status: Never smoker Do you use any of these nicotine containing products: None Second hand tobacco smoke exposure: No How often do you have a drink containing alcohol: never How often do you have six or more drinks on one occasion: Never AUDIT-C Alcohol total score: 0 Non-prescribed substance use: denies use Caffeine: No How often does anyone, including family, friends and others, physically hurt you: unable to answer How often does anyone, including family, friends and others, insult or talk down to you: unable to answer How often does anyone, including family, friends and others, threaten you with harm: unable to answer How often does anyone, including family, friends and others, scream or curse at you: unable to answer Little interest or pleasure in doing things: several days Feeling down, depressed, or hopeless: several days service: No Meds Home Medications and Allergies Home Medications Medication Instructions Recorded Confirmed Type oxycodone 5 mg tablet 7.5 mg PO Q4H PRN pain 12/18/23 History levofloxacin 500 mg tablet 500 mg PO DAILY 01/15/24 01/15/24 History Allergies Allergy/AdvReac Type Severity Reaction Status Date / Time piperacillin Allergy Intermediate Rash Verified 01/16/24 05:11 tazobactam Allergy Intermediate Rash Verified 01/16/24 05:11 vancomycin Allergy Unknown Anaphylactic Verified 01/16/24 05:11 shock with this medication. Also intermediate designer demario Exam Const: Vital Signs, click to edit/add: Vital Signs - 24 hr 01/15/24 22:35 01/16/24 01:00 01/16/24 01:59 Temperature 96.8 F L Pulse Rate 124 H Pulse Rate [Pulse Oximeter] 127 H 122 H Respiratory Rate 18 14 16 Blood Pressure 117/64 Blood Pressure [Ri ght Upper Arm] 115/73 117/64 Pulse Oximetry 97 95 94 Oxygen Delivery Me thod Room Air Room Air Oxygen Flow Rate Fraction of Inspir ed Oxygen 01/16/24 02:15 01/16/24 02:29 01/16/24 02:30 Temperature Pulse Rate 117 H 118 H 125 H Pulse Rate [Pulse Oximeter] Respiratory Rate 16 Blood Pressure 108/49 L Blood Pressure [Ri ght Upper Arm] Pulse Oximetry 95 98 98 Oxygen Delivery Me thod Oxygen Flow Rate Fraction of Inspir ed Oxygen 01/16/24 02:49 01/16/24 03:13 01/16/24 03:25 Temperature Pulse Rate 105 H Pulse Rate [Pulse Oximeter] Respiratory Rate Blood Pressure Blood Pressure [Ri ght Upper Arm] Pulse Oximetry 93 98 Oxygen Delivery Me thod Nasal Cannula Nasal Cannula Oxygen Flow Rate 2 Fraction of Inspir ed Oxygen 2 01/16/24 03:55 Temperature 97 F L Pulse Rate 105 H Pulse Rate [Pulse Oximeter] Respiratory Rate 16 Blood Pressure 110/60 Blood Pressure [Ri ght Upper Arm] Pulse Oximetry 98 Oxygen Delivery Me thod Oxygen Flow Rate Fraction of Inspir ed Oxygen Common normals: no apparent distress, oriented x3, alert and well nourished HENMT: Common normals: normocephalic and head/scalp atraumatic Head and scalp: normocephalic and atraumatic Eye: Common normals: PERRL, EOMs intact bilaterally and conjunctivae normal Conjunctiva: conjunctiva(e) normal Pupil: PERRL Neck & C-Spine: Common normals: no lymphadenopathy and supple Resp: Common normals: normal respiratory effort and clear to auscultation bilaterally Auscultation: clear to auscultation bilaterally Cardio: Common normals: regular rhythm, no gallops, no clicks and no murmurs Rate: tachycardic Rhythm: regular rhythm GI: Common normals: Normal to inspection, nondistended, normoactive bowel sounds present and soft to palpation Palpation: soft Extremity: Common normals: normal to inspection Neuro: Common normals: oriented x3 Sensorium/orientation: alert Psych: Common normals: mental status grossly normal Skin: General skin exam: erythema and induration Hospitalist - H&P: Result Labs Labs: Short CBC 01/15/24 Range/Units 23:45 WBC 30.50 H* (4.50-11.00) K/uL Hgb 12.9 (12.0-16.0) gm/dL Hct 42.1 (33.0-51.0) % Plt Count 294 (140-440) K/uL BMP 01/15/24 23:45 Sodium 133 L Potassium 2.6 L* Chloride 93 L Carbon Dioxide 30 BUN 21 Creatinine 0.3 L Glucose 77 Calcium 8.3 L Urine 01/15/24 Range/Units 22:55 Urine Color Dark yellow (Yellow) Urine Appearance Clear (Clear) Urine pH 5.5 (5.0-8.5) Ur Specific [place] 1.015 (1.000-1.030) Urine Protein Trace A (Negative) Urine Glucose (UA) Negative (Negative) Assessment and Plan Assessment and plan (1) Acute hypokalemia: Status: Acute (2) Sepsis: Status: Acute (3) Cellulitis: Status: Acute (4) Osteomyelitis: Problem comment: CT Abd/Pelvis 10/30/22: Chronic right posterior ischial soft tissue ulcer with adjacent deep fluid collection and chronic osteomyelitis of the right posterior iliac bone. Overall, the findings are similar to the prior studies. History of MRSA in wound previously. Current cultures growing group C strep. Had surgical debridement. Had prolonged treatment with oral antibiotics. Monitor clinically. Will need outpatient consultation with Infectious Disease as well as possibly Plastic surgery if definitive treatment of deep ulcer and osteomyelitis are desired Status: Acute (5) COPD (chronic obstructive pulmonary disease): Problem comment: chronic overlay with central sleep apnea and hypoventilation given long standing paraplegia - -home bipap needed to manage chronic hypercapnia -RT has been essential in working on home DME Used BiPAP her last night in the hospital successfully. Status: Acute (6) Anemia: Problem comment: no obvious blood loss. has had GI loss before - will trend and investigate. Status: Acute (7) Hyponatremia: Problem comment: NS bolus - fluid restriction trend improved Status: Acute (8) Neurogenic bladder: Problem comment: - chronic indwelling catheter - replaced catheter 12/09 Status: Chronic (9) Chronic steroid use: Problem comment: -for RA, continue usual dose of prednisone 10 po daily Status: Acute (10) Chronic, continuous use of opioids: Problem comment: - on Oxycodone 7.5 mg QID as an oupatient, continue to assess and treat as needed. Increasing risk for worsening hypoxia and hypoventilation Status: Acute (11) Decubitus ulcers: Problem comment: Presacral ulcer covered with Mepilex. Deep ulcer to right ischial tuberosity treated with wound VAC, perianal ulcer with seton packed with wet to dry dressing. 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 - wound VAC to be changed 3x a week. home health set up for home visits M/W. Daughter to transport on Fridays. 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 She did receive a dose of imipenem in the ED, plan to continue the same. Continue with IVF today and reevaluate need later today. Cultures pending. LA trended to WNL. Continue supportive care with anti-emetics, pain medication prn. PLan to recheck potassium later this morning to ensure adequate replacement. Monitor on telemetry. We will hold off additional stress dose steroids for now and monitor vitals closely. If BP does drop, could consider restarting however it is unlikely. Continue wound care for chronic sacral wounds.
[2024-01-16] MEDS: OXYCODONE 5 MG TABLET PO ×4 (06:13→20:10)
[2024-01-16] MEDS: ONDANSETRON 2 MG/ML inj 4 MG IVP ×2 (06:13→14:21)
[2024-01-16] MEDS: SODIUM CHLORIDE 0.9 % (FLUSH) 10 ML SYRINGE 5 ML IVF ×3 (06:13→20:09)
[2024-01-16 07:04] LABS: Hematocrit 34.6 % (33.0-51.0); Hemoglobin* 10.6 gm/dL (12.0-16.0); Immature Granulocytes Pct Auto 0.9 %; Lymphocytes Percent Auto 5.9 % (20-44); Mean Corpuscular HGB Conc 31 gm/dL (32-36); Mean Corpuscular Hemoglobin 27 pg (26-34); Mean Corpuscular Volume 87 fL (80-100); Monocytes Percent Auto 1.3 % (0.0-11.0); Neutrophils Percent Auto 91.9 % (42.0-72.0); Platelet Count* 293 K/uL (140-440); RDW Coefficient of Variation % 16.5 % (11.5-15.5); Red Blood Count 3.96 m/uL (4.00-5.20)
[2024-01-16 07:07] LABS: Slide Review Reflex No; White Blood Count* 29.74 K/uL (4.50-11.00)
[2024-01-16 07:24] LABS: Chloride* 97 mmol/L (96-114); Sodium* 135 mmol/L (135-149)
[2024-01-16 07:25] LABS: Potassium* 3.5 mmol/L (3.6-5.1)
[2024-01-16 07:27] LABS: Creatinine* 0.3 mg/dL (0.5-1.5); Est. Creatinine Clearance* 33.84; Estimated Glomerular Filt Rate 109 ml/min
[2024-01-16 07:28] LABS: Anion Gap 2 mEq/L (7-15); Blood Urea Nitrogen* 16 mg/dL (7-30); Calcium* 7.6 mg/dL (8.4-10.6); Carbon Dioxide* 36 mmol/L (20-32); Glucose* 105 mg/dL (60-115)
--- NOTE | 2024-01-16 09:18 | PC.NURSE ---
END OF SHIFT NOTE: PT CALM AND COOPERATIVE WITH CARES. PT A&Ox3. PARAPLEGIC SINCE CHILDHOOD. WOUND VAC TO CHRONIC WOUND ON RIGHT BUTTOCK. CELLULITIS TO LEFT LOWER ABD/GROIN OUTLINED WITH MARKER. ANAL NARCISO IN PLACE. WOUND TO COCCYX MEASURING [id number]. WOUND x2 LEFT LATERAL FT. HELLER PATENT AND DRAINING LIGHT BRITTANEY URINE. PT C/O NAUSEA, RESOLVED WITH PRN ZOFRAN. RIGHT HIP PAIN WITH RELIEF FROM PRN OXYCODONE. LSCTA. SOFT BP. IV TO LEFT FOREARM PATENT. SPO2 87-93% ON .5L SUPPLEMENTAL OXYGEN VIA NC.
[2024-01-16] MEDS: POTASSIUM CHLORIDE 10 MEQ, LIDOCAINE 1 % 1 ML in 0.9 % SODIUM CHLORIDE 100 ml 100 ML 106 MEQ IVPB (09:41)
--- NOTE | 2024-01-16 10:33 | P.IMPN_ITS ---
Progress Note: A&P Assessment and plan (1) Sepsis: Problem details: - concern given WBC of 30, HR 100s, lactate >2 - source likely urine vs cellulitis vs osteomyelitis, blood and urine cultures pending - subjectively and objectively improving on hospital day 1 - continue IVFs, Imipenem, close monitoring Status: Acute (2) Cellulitis: Problem details: - L flank, outlined upon admission, continue to monitor closely Status: Acute (3) Osteomyelitis: Problem details: - chronic, first noted on CT A/P 10/2022: Chronic R posterior ischial soft tissue ulcer with adjacent deep fluid collection, chronic osteomyelitis of the R posterior iliac bone - remoted history of MRSA in wound, recent MRSA swabs negative - has been treated previously with surgical debridement and multiple courses of antibiotics - wound care following Status: Acute (4) Acute hypokalemia: Problem details: - 2.6 on 01/15, up to 3.4 on 01/15 - replace and follow Status: Acute (5) Paraplegia: Problem details: - since age 6; 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 Status: Chronic (6) Anemia: Problem details: - no obvious bleeding, currently Hgb is 10.6 (close to baseline) - follow Status: Acute (7) Neurogenic bladder: Problem details: - chronic indwelling catheter Status: Chronic (8) COPD (chronic obstructive pulmonary disease): Problem details: - chronic overlay with central sleep apnea and hypoventilation given long standing paraplegia - previously has used BIPAP during hospital stays Status: Acute (9) Chronic steroid use: Problem details: - for RA, continue usual dose of prednisone 10 po daily Status: Acute (10) Chronic, continuous use of opioids: Problem details: - on Oxycodone 7.5 mg QID as an outpatient, continue to assess and treat as needed. Increasing risk for worsening hypoxia and hypoventilation Status: Acute (11) Decubitus ulcers: Problem details: - presacral ulcer covered with Mepilex. 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 Had been seen in ED on 01/06 with L flank pain and early cellulitis, in addition to a UTI, treated with Rocephin and Cephalexin. Presented last night with worsening symptoms, found to have a WBC of 30K with worsening cellulitis, in addition to hypokalemia and an elevated lactate. Imipenem, IVFs, and potassium replacement initiated. This morning, lactate has normalized, potassium improved, WBC 29. She remains afebrile. Blood Pressure 103/50s and pulse 103 (both improved from ED). Still feels not great but better than yesterday. The wound clinic is following patient during stay given chronic sacral wound (that appears to have worsened recently). Exam Narrative: Exam Narrative: GEN: Alert and oriented, laying in bed and having breakfast HEENT: EOMIs bilaterally, no scleral icterus CV: RRR (heart rate in the 90s during my exam) R: Decreased bibasilar breath sounds Back: Erythema over L flank, area is warm with mild ttp, + induration without fluctuance Skin: Sacral ulcer not formally examined given recent wound clinic visit Neuro: Appropriate for chronic paraplegia Psych: Appropriate Const: Vital Signs, click to edit/add: Vital Signs - 24 hr 01/15/24 22:35 01/16/24 01:00 01/16/24 01:59 Temperature 96.8 F L Pulse Rate 124 H Pulse Rate [Pulse Oximeter] 127 H 122 H Respiratory Rate 18 14 16 Blood Pressure 117/64 Blood Pressure [Ri ght Arm] Blood Pressure [Ri ght Upper Arm] 115/73 117/64 Pulse Oximetry 97 95 94 Oxygen Delivery Me thod Room Air Room Air Oxygen Flow Rate Fraction of Inspir ed Oxygen 01/16/24 02:15 01/16/24 02:29 01/16/24 02:30 Temperature Pulse Rate 117 H 118 H 125 H Pulse Rate [Pulse Oximeter] Respiratory Rate 16 Blood Pressure 108/49 L Blood Pressure [Ri ght Arm] Blood Pressure [Ri ght Upper Arm] Pulse Oximetry 95 98 98 Oxygen Delivery Me thod Oxygen Flow Rate Fraction of Inspir ed Oxygen 01/16/24 02:49 01/16/24 03:13 01/16/24 03:25 Temperature Pulse Rate 105 H Pulse Rate [Pulse Oximeter] Respiratory Rate Blood Pressure Blood Pressure [Ri ght Arm] Blood Pressure [Ri ght Upper Arm] Pulse Oximetry 93 98 Oxygen Delivery Me thod Nasal Cannula Nasal Cannula Oxygen Flow Rate 2 Fraction of Inspir ed Oxygen 2 01/16/24 03:55 01/16/24 07:00 01/16/24 07:48 Temperature 97 F L 98.1 F 98.0 F Pulse Rate 105 H Pulse Rate [Pulse Oximeter] 93 86 Respiratory Rate 16 16 14 Blood Pressure 110/60 Blood Pressure [Ri ght Arm] 94/50 L 97/46 L Blood Pressure [Ri ght Upper Arm] Pulse Oximetry 98 96 96 Oxygen Delivery Me thod Nasal Cannula Nasal Cannula Oxygen Flow Rate 0.5 1 Fraction of Inspir ed Oxygen 01/16/24 07:48 Temperature Pulse Rate Pulse Rate [Pulse Oximeter] Respiratory Rate 14 Blood Pressure Blood Pressure [Ri ght Arm] Blood Pressure [Ri ght Upper Arm] Pulse Oximetry 96 Oxygen Delivery Me thod Nasal Cannula Oxygen Flow Rate 1 Fraction of Inspir ed Oxygen Labs Labs: Laboratory Results - last 24 hr 01/15/24 01/15/24 01/15/24 22:55 23:40 23:45 WBC 30.50 H* RBC 4.85 Hgb 12.9 Hct 42.1 MCV 87 MCH 27 MCHC 31 L RDW Coeff of Lynette 16.3 H Plt Count 294 Neut % (Auto) 83.4 H Lymph % (Auto) 11.2 L [place] % (Auto) 3.7 Eos % (Auto) 0.1 Baso % (Auto) 0.1 Neut # (Auto) 25.40 H Lymph # (Auto) 3.40 H [place] # (Auto) 1.10 H Eos # (Auto) 0.00 Baso # (Auto) 0.00 Abs Immat Gran (auto) 0.50 H Imm/Tot Granulo (auto) 1.5 Diff Slide Review Acceptable Review Sodium 133 L Potassium 2.6 L* Chloride 93 L Carbon Dioxide 30 Anion Gap 10 BUN 21 Creatinine 0.3 L Estimated Creat Clear 33.84 Estimated GFR 109 Glucose 77 Lactate 2.4 H Calcium 8.3 L Urine Color Dark yellow Urine Appearance Clear Urine pH 5.5 Ur Specific [place] 1.015 Urine Protein Trace A Urine Glucose (UA) Negative Urine Ketones 1+ A Urine Blood Trace-intact A Urine Nitrite Negative Urine Bilirubin 1+ A Urine Urobilinogen 0.2 Ur Leukocyte Esterase Trace A Urine RBC 0-2 Urine WBC 2-5 Ur Squamous Epith Cells Few Urine Bacteria Few A SARS-CoV-2 (PCR) Negative SARS-CoV-2 Influenza Type A (PCR) Negative PCR FLU A Influenza Type B (PCR) Negative PCR FLU B RSV (PCR) Negative PCR RSV SARS-CoV-2 Ag (Rapid) Cancelled 01/16/24 01/16/24 01:35 06:56 WBC 29.74 H* RBC 3.96 L Hgb 10.6 L Hct 34.6 MCV 87 MCH 27 MCHC 31 L RDW Coeff of [place] 16.5 H Plt Count 293 Neut % (Auto) 91.9 H Lymph % (Auto) 5.9 L [place] % (Auto) 1.3 Eos % (Auto) 0.0 Baso % (Auto) 0.0 Neut # (Auto) 27.30 H Lymph # (Auto) 1.80 [place] # (Auto) 0.40 Eos # (Auto) 0.00 Baso # (Auto) 0.00 Abs Immat Gran (auto) 0.30 Imm/Tot Granulo (auto) 0.9 Diff Slide Review Sodium 135 Potassium 3.5 L Chloride 97 Carbon Dioxide 36 H Anion Gap 2 L BUN 16 Creatinine 0.3 L Estimated Creat Clear 33.84 Estimated GFR 109 Glucose 105 Lactate 1.2 Calcium 7.6 L Urine Color Urine Appearance Urine pH Ur Specific [place] Urine Protein Urine Glucose (UA) Urine Ketones Urine Blood Urine Nitrite Urine Bilirubin Urine Urobilinogen Ur Leukocyte Esterase Urine RBC Urine WBC Ur Squamous Epith Cells Urine Bacteria SARS-CoV-2 (PCR) Influenza Type A (PCR) Influenza Type B (PCR) RSV (PCR) SARS-CoV-2 Ag (Rapid)
[2024-01-16] MEDS: 0.9 % SODIUM CHLORIDE 1000 ml 1,000 ML 150 ML IV ×2 (10:35→19:21)
[2024-01-16] MEDS: GABAPENTIN 300 MG CAPSULE PO ×2 (14:03→20:10)
--- NOTE | 2024-01-16 14:22 | P.IMCN_ITS ---
Date of Consult Patient: [facility] Patient Consult date: 01/16/24 Requesting Physician: Hospitalist Primary Care Provider: Flo Mckeon MD Consult Narrative Reason for consult: Wound Care patient now Inpatient Narrative: Prerna Major is a 78 year old female known to Wound Center. History of frequent re-hospitalizations. Wounds are chronic. Recently re-admitted to wound center on 12/19/2023 after several months without services. New wound then to central coccyx area. Recent development of left abdominal/upper thigh cellulitis. Has just recently received low air loss mattress for hospital bed. Currently lives with daughter. Home care in place. Wound Vac continues to right IT. Still in place today. Other dressings in place as directed. States daughter able to bring in vac supplies later, went home to sleep. Wound to left lateral foot stable. Review of Systems Status of ROS: Reports: 6 or more systems reviewed and unremarkable except as noted in History and below Integ/Breast: Reports: non-healing lesion (Multiple chronic ulcers) [facility] Medical History (Updated 01/18/24 @ 11:08 by Lucía Espinoza MD) Osteomyelitis ?M86.9 - Osteomyelitis, unspecified (ICD-10) Anemia ?D64.9 - Anemia, unspecified (ICD-10) Diarrhea ?R19.7 - Diarrhea, unspecified (ICD-10) Intravenous infiltration ?T80.1XXA - Vascular complications following infusion, transfusion and therapeutic injection, initial encounter (ICD-10) Neurogenic bladder ?N31.9 - Neuromuscular dysfunction of bladder, unspecified (ICD-10) Chronic, continuous use of opioids ?F11.90 - Opioid use, unspecified, uncomplicated (ICD-10) Chronic steroid use 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, stage 4 ?L89.44 - Pressure ulcer of contiguous site of back, buttock and hip, stage 4 (ICD-10) Rheumatoid arthritis ?M06.9 - Rheumatoid arthritis, unspecified (ICD-10) HTN (hypertension) ?I10 - Essential (primary) hypertension (ICD-10) Cristobal catheter in place ?Z97.8 - Presence of other specified devices (ICD-10) Sleep apnea ?G47.30 - Sleep apnea, unspecified (ICD-10) Paraplegia ?G82.20 - Paraplegia, unspecified (ICD-10) Acute on chronic anemia ?D64.9 - Anemia, unspecified (ICD-10) Paraplegia ?G82.20 - Paraplegia, unspecified (ICD-10) Chronic pain ?G89.29 - Other chronic pain (ICD-10) Tubular adenoma of colon ?D12.6 - Benign neoplasm of colon, unspecified (ICD-10) 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 - Acute transverse myelitis in demyelinating disease of central nervous system (ICD-10) Septic shock ?A41.9 - Sepsis, unspecified organism (ICD-10) ?R65.21 - Severe sepsis with septic shock (ICD-10) Recurrent urinary tract infection ?N39.0 - Urinary tract infection, site not specified (ICD-10) Osteoporosis ?M81.0 - Age-related osteoporosis without current pathological fracture (ICD- 10) History of methicillin resistant Staphylococcus aureus infection ?Z86.14 - Personal history of Methicillin resistant Staphylococcus aureus infection (ICD-10) Surgical History Status post debridement ?Z98.890 - Other specified postprocedural states (ICD-10) Social History (Updated 12/08/23 @ 23:55 by Lucía Espinoza MD) Narrative: Mary has recently been living at [facility], daughter Elvi (MDM if needed) is hoping to bring her home with radio time buyer caregiving. has cognitive impairment. At this time (12/08/23), she is requesting DNR/DNI status. Nonsmoker, no ETOH use. What is your current living situation?: I presently have a place to live Problems where you live: no known problems Problems where you live details: N/A In the past 12 months, utilities in danger of being shut off: no In past 12 months, lack of transportation kept you from medical appts, meetings, work, or getting things needed for daily living: no In the past 12 mos, have been you worried that your food would run out before you had money to buy more?: never true In the past 12 mos, the food you bought just didn't last and you didn't have money to buy more?: never true Highest level of school completed/degree received: Bachelor's degree Smoking Status: Never smoker Do you use any of these nicotine containing products: None Second hand tobacco smoke exposure: No How often do you have a drink containing alcohol: never How often do you have six or more drinks on one occasion: Never AUDIT-C Alcohol total score: 0 Non-prescribed substance use: denies use Caffeine: Yes (CUP COFFEE DAILY) How often does anyone, including family, friends and others, physically hurt you : never How often does anyone, including family, friends and others, insult or talk down to you: never How often does anyone, including family, friends and others, threaten you with harm: never How often does anyone, including family, friends and others, scream or curse at you: never Little interest or pleasure in doing things: several days Feeling down, depressed, or hopeless: several days service: No Meds Home Medications and Allergies Home Medications Medication Instructions Recorded Confirmed Type oxycodone 5 mg tablet 7.5 mg PO Q4H PRN pain 12/18/23 01/16/24 History levofloxacin 500 mg tablet 500 mg PO DAILY 01/15/24 01/15/24 History Allergies Allergy/AdvReac Type Severity Reaction Status Date / Time piperacillin Allergy Intermediate Rash Verified 01/16/24 05:11 tazobactam Allergy Intermediate Rash Verified 01/16/24 05:11 vancomycin Allergy Unknown Anaphylactic Verified 01/16/24 05:11 shock with this medication. Also [facility] demario Exam Const: Vital Signs, click to edit/add: Vital Signs - 24 hr 01/15/24 22:35 01/16/24 01:00 01/16/24 01:59 Temperature 96.8 F L Pulse Rate 124 H Pulse Rate [Pulse Oximeter] 127 H 122 H Respiratory Rate 18 14 16 Blood Pressure 117/64 Blood Pressure [Ri ght Arm] Blood Pressure [Ri ght Upper Arm] 115/73 117/64 Pulse Oximetry 97 95 94 Oxygen Delivery Me thod Room Air Room Air Oxygen Flow Rate Fraction of Inspir ed Oxygen 01/16/24 02:15 01/16/24 02:29 01/16/24 02:30 Temperature Pulse Rate 117 H 118 H 125 H Pulse Rate [Pulse Oximeter] Respiratory Rate 16 Blood Pressure 108/49 L Blood Pressure [Ri ght Arm] Blood Pressure [Ri ght Upper Arm] Pulse Oximetry 95 98 98 Oxygen Delivery Me thod Oxygen Flow Rate Fraction of Inspir ed Oxygen 01/16/24 02:49 01/16/24 03:13 01/16/24 03:25 Temperature Pulse Rate 105 H Pulse Rate [Pulse Oximeter] Respiratory Rate Blood Pressure Blood Pressure [Ri ght Arm] Blood Pressure [Ri ght Upper Arm] Pulse Oximetry 93 98 Oxygen Delivery Me thod Nasal Cannula Nasal Cannula Oxygen Flow Rate 2 Fraction of Inspir ed Oxygen 2 01/16/24 03:55 01/16/24 07:00 01/16/24 07:00 Temperature 97 F L 98.1 F Pulse Rate 105 H Pulse Rate [Pulse Oximeter] 93 Respiratory Rate 16 16 Blood Pressure 110/60 Blood Pressure [Ri ght Arm] 94/50 L Blood Pressure [Ri ght Upper Arm] Pulse Oximetry 98 96 96 Oxygen Delivery Me thod Nasal Cannula Oxygen Flow Rate 0.5 Fraction of Inspir ed Oxygen 01/16/24 07:00 01/16/24 07:48 01/16/24 07:48 Temperature 98.0 F Pulse Rate 100 Pulse Rate [Pulse Oximeter] 86 Respiratory Rate 14 14 Blood Pressure Blood Pressure [Ri ght Arm] 97/46 L Blood Pressure [Ri ght Upper Arm] Pulse Oximetry 96 96 Oxygen Delivery Me thod Nasal Cannula Nasal Cannula Oxygen Flow Rate 1 1 Fraction of Inspir ed Oxygen 01/16/24 11:00 Temperature 98.0 F Pulse Rate Pulse Rate [Pulse Oximeter] 103 H Respiratory Rate 16 Blood Pressure Blood Pressure [Ri ght Arm] 103/53 L Blood Pressure [Ri ght Upper Arm] Pulse Oximetry 96 Oxygen Delivery Me thod Nasal Cannula Oxygen Flow Rate 0.5 Fraction of Inspir ed Oxygen General appearance: cooperative and frail appearing Orientation/consciousness: Yes awake, Yes oriented to person and Yes oriented to place Resp: Common normals: normal respiratory effort Effort & inspection: able to speak in complete sentences Cardio: Common normals: regular rate Rate: regular rate Neuro: Sensorium/orientation: awake, oriented to person and oriented to place Skin: Wounds: wounds noted (Central Coccyx, Right IT- stage 4 pressure ulcer, Left lateral foot ) size (Left Lateral Foot 1.5x0.9x0.3cm), bed beefy red (Right IT), with slough (Central Coccyx) and necrotic (Left lateral foot), drainage serosanguineous and without odor Labs Labs: Short CBC 01/15/24 01/16/24 Range/Units 23:45 06:56 WBC 30.50 H* 29.74 H* (4.50-11.00) K/uL Hgb 12.9 10.6 L (12.0-16.0) gm/dL Hct 42.1 34.6 (33.0-51.0) % Plt Count 294 293 (140-440) K/uL BMP 01/15/24 01/16/24 23:45 06:56 Sodium 133 L 135 Potassium 2.6 L* 3.5 L Chloride 93 L 97 Carbon Dioxide 30 36 H BUN 21 16 Creatinine 0.3 L 0.3 L Glucose 77 105 Calcium 8.3 L 7.6 L Urine 01/15/24 Range/Units 22:55 Urine Color Dark yellow (Yellow) Urine Appearance Clear (Clear) Urine pH 5.5 (5.0-8.5) Ur Specific [place] 1.015 (1.000-1.030) Urine Protein Trace A (Negative) Urine Glucose (UA) Negative (Negative) Assessment and Plan Assessment and plan (1) Cellulitis: Problem comment: - L flank, outlined upon admission, continue to monitor closely - on Imipenem (01/15/24) - more induration noted on 01/17, dependent edema vs worsening disease/early abscess - close monitoring, continue IV antibiotics and Lasix, repeat imaging with any worsening Status: Acute (2) Sepsis: Problem comment: - concern given + SIRS criteria with WBC of 30, HR 100s, lactate >2 - source likely urine vs cellulitis vs osteomyelitis, blood and urine cultures currently NGTD - continues to subjectively and objectively improve - continue Imipenem (01/14) Status: Acute (3) Decubitus ulcers: Problem comment: - presacral ulcer covered with Mepilex. Deep ulcer to right ischial tuberosity treated with wound VAC, perianal ulcer with seton packed with wet to dry dressing - wound care following during stay Status: Acute Assessment and Plan: Wound Care Consult completed by primary Wound Center provider. Wounds appear stable today. Will continue current orders from Wound Center: 1) Central coccyx: Change wound 3x per week Cleanse with Vashe or saline Cover with aquacel ag Cover with mepilex dressing 2) Right Ischial Tuberosity: Re-establish wound vac once supplies are delivered. Continue with current wound vac settings. Until able to re-establish wound vac will complete a Vashe/gauze moist to dry dressing. Change daily. Moisten 4x4 gauze or portion of kerlix with Vashe. Ensure is not dripping wet. Pack into wound. Cover with ABD, secure with medipore or paper tape. 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 Granulation tissue continues. Largely free of slough. Drainage being contained with wound vac. Home vac not same type as hospital, will need daughter to bring in Wound Vac supplied during stay. If hospital stay requires several days should look into changing over to hospital system and providing home vac company with hospitalization dates. Debridement completed today. 100% of wound bed. Completed with currette. Removal of subcutaneous tissue and biofilm. Bleeding minimal. No pain relief needed. Patient tolerated well. Dressing change completed after debridement with gauze/Vashe. Plan Wound #3): Left lateral Foot: Change wound 3x per week Cleanse with Vashe or saline Cover with aquacel ag Cover with mepilex dressing Ensure good offloading of to wound area. Left foot should not be allowed to rest on mattress whenever possible. Wounds should be managed well with current dressing change orders. Acute Care able to reconsult if needed or for wound deterioration.
[2024-01-16] MEDS: POTASSIUM CHLORIDE 10 MEQ CAPSULE ER 20 MEQ PO (18:35)
[2024-01-16] MEDS: ENOXAPARIN 40 MG/0.4 ML INJ SUBCUT (20:09)
[2024-01-17] VITALS (10 sets, daily range): BP systolic 101–124; BP diastolic 40–65; PULSE 93–106; RESP 16; TEMP 36.6–36.8; O2SAT 93–98
--- OUTSIDE RECORDS SUMMARY | 2024-01-17 00:02 | XMS_ITS | Referral Summary ---
Author Name Unknown Organization [facility] Address [address] [place] [address] Care Team Providers Care Heat Plant Specialist Name Role Phone Elsewhere, Pcp Primary Care Provider Unavailabl e Source Comments Patient records contain information from all sites at [facility]. For routine questions regarding patient records, call [phone] during business hours, M-F 8:00 AM - 5:00 PM Central Time. Record requests for emergency care only can be directed to [phone] at any time.[facility] Encounters Date Type Department Care Team Description 12/01/2023 Orders Only Department of Physical Medicine and Rehabilitation in [place], [place] [address] [place] [address] Charlotte Craig, [facility] 12/01/2023 Clinical Communication Department of Pulmonary Medicine in [place], [place] [address] [place] [address] Mercy Poe, P.A.-C. 11/28/2023 Clinical Communication Senior Services in [place] [address] [place] [address] Haven Saxena, RCarleen 11/28/2023 4:00 PM SPECIAL EFFECTS PERSON External Outreach Senior Services in [place] [address] [place] [phone] Osiris Otero, AMIRAH, C.N.P., R.N. Chronic Diastolic [...] Resonance Disorder 11/26/2023 Documentation Senior Services in [address] [address] Osiris Otero APRN, C.N.P., R.N. 11/25/2023 Clinical Communication Senior Services in [place] [address] [place] [address] Osiris Otero APRN, C.N.P., R.N. 11/10/2023 Orders Only Senior Services in [address] [address] Osiris Otero APRN, C.N.P., R.N. Neurogenic Bladder (Primary Dx) 11/07/2023 9:00 AM SPECIAL EFFECTS PERSON External Outreach Senior Services in [address] [address] Fernando Renee M.D. 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 Hypokalemia Discharge Disposition: Home or Self Care 10/31/2023 10:00 AM SPECIAL EFFECTS PERSON External Outreach Senior Services in [place] [address] [place] [address] Osiris Otero APRN C.N.P., R.N. 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 Schimming, Christopher, M.D. Hayes, Lisa M, M.D. Benson, Troy, M.D. 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 Edema Localized Discharge Disposition: Home or Self Care 10/20/2023 10:00 AM SPECIAL EFFECTS PERSON Ancillary Procedure Department of Family Medicine 10/19/2023 10:30 AM SPECIAL EFFECTS PERSON Ancillary Procedure Department of Emergency Medicine 10/19/2023 10:25 AM SPECIAL EFFECTS PERSON Ancillary Procedure Department of Emergency Medicine 10/19/2023 10:15 AM SPECIAL EFFECTS PERSON Ancillary Procedure Department of Emergency Medicine 10/19/2023 10:10 AM SPECIAL EFFECTS PERSON Ancillary Procedure Department of Emergency Medicine 10/19/2023 9:50 AM SPECIAL EFFECTS PERSON Ancillary Procedure Department of Emergency Medicine 10/18/2023 8:38 PM SPECIAL EFFECTS PERSON - 10/19/2023 12:45 AM [facility] Emergency [place] [facility] [address] [place] [address] Iam eHrrera D.O. Pneumonia (Primary Dx); Hypoxia Discharge Disposition: [facility] 10/18/2023 Intake [facility] from Last 3 Months Allergies Active Allergy [...] 09/19/2023 Hypertension Essential Primary 09/19/2023 Corticosteroid Treatment Halfway Systemic 05/2023 Paraplegia 09/19/2023 Osteoporosis 06/28/2021 Acute [...] 0.6 oz pur e alcohol) [facility] Utilities Answer Date Recorded In the past 12 months has e [employer], gas, oil, or water [employer] threatened to shut off services in your [...] living situation today? I have a [facility] place to live 10/19/2023 Sex and Gender Information Value Date Recorded Sex Assigned at Not on file Gender Identity Not on file Sexual Orientation Not on file Last Filed Vital Signs Vital Sign Reading Time Taken Comments Blood Pressure 110/68 11/28/2023 8:43 AM SPECIAL EFFECTS PERSON Pulse 76 11/28/2023 8:43 AM SPECIAL EFFECTS PERSON Temperature 36.7 ??C (98 ??F) 11/28/2023 8:43 AM SPECIAL EFFECTS PERSON Respiratory Rate 18 11/28/2023 8:43 AM SPECIAL EFFECTS PERSON Oxygen Saturation 95% 11/28/2023 8:43 AM SPECIAL EFFECTS PERSON RA Inhaled Oxygen Concentration - - Weight 58.8 kg (129 lb 9.6 oz) 11/28/2023 8:43 A M SPECIAL EFFECTS PERSON Height 152 cm (4' 11.84) 10/19/2023 5:00 AM SPECIAL EFFECTS PERSON Body Mass Index 25.44 10/19/2023 5:00 AM SPECIAL EFFECTS PERSON Plan of Treatment Not on file Procedures Procedure Name Priority Date/Time Associated Diagnosis Comments EXTM HOME SARS CORONAVIRUS-2 (COVID-19) ANTIGEN, V Routine 11/13/2023 BASIC METABOLIC PANEL, S/P Routine 11/04/2023 6:52 AM SPECIAL EFFECTS PERSON Hypokalemia DX CHEST PORTABLE 1 VIEW RAD - Routine (most inpatients and all outpatients) 10/27/2023 10:24 AM SPECIAL EFFECTS PERSON URINALYSIS WITH MICROSCOPIC Routine 10/27/2023 10:15 AM SPECIAL EFFECTS PERSON MORPHOLOGY EVALUATION Routine 10/27/2023 6:48 AM SPECIAL EFFECTS PERSON BASIC METABOLIC PANEL, S/P Routine 10/27/2023 6:48 AM SPECIAL EFFECTS PERSON CBC WITH DIFFERENTIAL, B Routine 10/27/2023 6:48 AM SPECIAL EFFECTS PERSON DX CHEST PORTABLE 1 VIEW RAD - Semiurgent (Fast; most ED patients; some inpatients) 10/22/2023 10:53 AM SPECIAL EFFECTS PERSON MORPHOLOGY EVALUATION Routine 10/22/2023 6:19 AM SPECIAL EFFECTS PERSON C-REACTIVE PROTEIN (CRP), S/P Routine 10/22/2023 6:19 AM SPECIAL EFFECTS PERSON CBC WITH DIFFERENTIAL, B Routine 10/22/2023 6:19 AM SPECIAL EFFECTS PERSON MORPHOLOGY EVALUATION Routine 10/21/2023 6:32 AM SPECIAL EFFECTS PERSON CBC WITH DIFFERENTIAL, B Routine 10/21/2023 6:32 AM SPECIAL EFFECTS PERSON BASIC METABOLIC PANEL, S/P Routine 10/21/2023 6:32 AM SPECIAL EFFECTS PERSON FAMILY MEDICINE IMAGE EXAM Routine 10/20/2023 10:00 AM SPECIAL EFFECTS PERSON MORPHOLOGY EVALUATION Routine 10/20/2023 6:08 AM SPECIAL EFFECTS PERSON CBC WITH DIFFERENTIAL, B Routine 10/20/2023 6:08 AM SPECIAL EFFECTS PERSON BASIC METABOLIC PANEL, S/P Routine 10/20/2023 6:08 AM SPECIAL EFFECTS PERSON C-REACTIVE PROTEIN (CRP), S/P Routine 10/20/2023 6:08 AM SPECIAL EFFECTS PERSON EMERGENCY DEPARTMENT IMAGE EXAM Routine 10/19/2023 10:26 AM SPECIAL EFFECTS PERSON EMERGENCY DEPARTMENT IMAGE EXAM Routine 10/19/2023 10:25 AM SPECIAL EFFECTS PERSON EMERGENCY DEPARTMENT IMAGE EXAM Routine 10/19/2023 10:09 AM SPECIAL EFFECTS PERSON EMERGENCY DEPARTMENT IMAGE EXAM Routine 10/19/2023 10:09 AM SPECIAL EFFECTS PERSON EMERGENCY DEPARTMENT IMAGE EXAM Routine 10/19/2023 9:50 AM SPECIAL EFFECTS PERSON MORPHOLOGY EVALUATION Routine 10/19/2023 4:27 AM SPECIAL EFFECTS PERSON CBC WITH DIFFERENTIAL, B Routine 10/19/2023 4:27 AM SPECIAL EFFECTS PERSON HEPATIC FUNCTION PANEL, S Routine 10/19/2023 4:27 AM SPECIAL EFFECTS PERSON BASIC METABOLIC PANEL, S/P Routine 10/19/2023 4:27 AM SPECIAL EFFECTS PERSON C-REACTIVE PROTEIN (CRP), S/P Routine 10/19/2023 4:27 AM SPECIAL EFFECTS PERSON D-DIMER, P Routine 10/19/2023 4:27 AM SPECIAL EFFECTS PERSON NASAL SCREEN FOR MRSA BY RAPID PCR Routine 10/19/2023 3:35 AM SPECIAL EFFECTS PERSON NT-PRO B-TYPE NATRIURETIC PEPTIDE (BNP), S STAT 10/18/2023 11:48 PM SPECIAL EFFECTS PERSON ECG Routine 10/18/2023 11:32 PM SPECIAL EFFECTS PERSON URINALYSIS WITH MICROSCOPIC Routine 10/18/2023 9:14 PM SPECIAL EFFECTS PERSON BACTERIAL CULTURE, AEROBIC + SUSC, URINE Routine 10/18/2023 9:14 PM SPECIAL EFFECTS PERSON DX CHEST PORTABLE 1 VIEW RAD - Semiurgent (Fast; most ED patients; some inpatients) 10/18/2023 9:01 PM SPECIAL EFFECTS PERSON BASIC METABOLIC PANEL, S/P STAT 10/18/2023 8:46 PM SPECIAL EFFECTS PERSON LACTATE FOR SEPSIS WITH REFLEX STAT 10/18/2023 8:46 PM SPECIAL EFFECTS PERSON CBC WITH DIFFERENTIAL, B STAT 10/18/2023 8:46 PM SPECIAL EFFECTS PERSON BACTERIA / LUCY CULTURE, BLOOD STAT 10/18/2023 8:46 PM SPECIAL EFFECTS PERSON BACTERIA / LUCY CULTURE, BLOOD STAT 10/18/2023 8:46 PM SPECIAL EFFECTS PERSON INFLUENZA A, B, RSV, PCR, POCT STAT 10/18/2023 8:35 PM SPECIAL EFFECTS PERSON SARS CORONAVIRUS 2, PCR RAPID, V STAT 10/18/2023 8:28 PM SPECIAL EFFECTS PERSON from Last 3 Months Results * (ABNORMAL) EXT Home SARS Coronavirus-2 (COVID-19) Antigen (11/13/2023) EXT Home SARS-CoV-2 Antigen Presumptive Positive(A) Presumptive Negative OTHER (SPECIFY IN [place]ATER[place] COORDINATOR) Swab 11/13/2023 Historical Provider LAB MICROBIOLOGY - G ENERAL ORDERABLES OTHER (SPECIFY IN [place] COORDINATOR) N/A * (ABNORMAL) Basic Metabolic Panel (11/04/2023 6:52 AM SPECIAL EFFECTS PERSON) Only the most recent of6 resultswithin the time period is included. Potassium, P 4.1 3.6 - 5.2 mmol/L 11/04/2023 8:14 AM SPECIAL EFFECTS PERSON NPRG Sodium, P 142 135 - 145 mmol/L 11/04/2023 8:14 AM SPECIAL EFFECTS PERSON NPRG Chloride, P 102 98 - 107 mmol/L 11/04/2023 8:14 AM SPECIAL EFFECTS PERSON NPRG Bicarbonate, P 30(H) 22 - 29 mmol/L 11/04/2023 8:14 AM SPECIAL EFFECTS PERSON NPRG Anion Gap, P 10 7 - 15 11/04/2023 8:14 AM SPECIAL EFFECTS PERSON NPRG BUN (Blood Urea Nitrogen), P 21 6 - 21 mg/dL 11/04/2023 8:14 AM SPECIAL EFFECTS PERSON NPRG Creatinine 0.28(L) 0.59 - 1.04 mg/dL 11/04/2023 8:14 AM SPECIAL EFFECTS PERSON NPRG Estimated GFR (eGFR) >90 >=60 mL/min/BSA 11/04/2023 8:14 AM SPECIAL EFFECTS PERSON NPRG Comment: Estimated GFR calculated using the 2020 CKD_EPI creatinine equation. Calcium, Total, P 9.1 8.8 - 10.2 mg/dL 11/04/2023 8:14 AM SPECIAL EFFECTS PERSON NPRG Glucose, P 79 70 - 140 mg/dL 11/04/2023 8:14 AM SPECIAL EFFECTS PERSON NPRG Blood (Blood, Venous) 11/04/2023 6:52 AM SPECIAL EFFECTS PERSON 11/04/2023 7:43 AM SPECIAL EFFECTS PERSON Osiris Otero APRN, C.N.P., R.N. LAB B LOOD ADD-ON [facility] [address] [place] [address], [place] NPRG [facility] [address] [place] [address] * DX Chest Portable 1 View (10/27/2023 10:24 AM SPECIAL EFFECTS PERSON) Only the most recent of3 resultswithin the time period is included. Anatomical Region Laterality Modality Chest, Thoracic RST LOS, Tho racic ARZ LOS, Thoracic FLA LOS N/A Digital Radiography Impressions 10/27/2023 10:34 AM SPECIAL EFFECTS PERSON No acute infiltrates. There is of bibasilar discoid atelectasis as described. Narrative 10/27/2023 10:34 AM SPECIAL EFFECTS PERSON EXAM: DX CHEST PORTABLE 1 VIEW COMPARISON: [...] Microscopic: Urine, Indwelling Catheter (10/27/2023 10:15 AM SPECIAL EFFECTS PERSON) Only the most recent of2 resultswithin the time period is included. Source Urine, Urine, Indwelling Catheter 10/27/2023 10:20 AM SPECIAL EFFECTS PERSON [facility] Clarity Slightly Cloudy(A) Clear 10/27/2023 10:22 AM SPECIAL EFFECTS PERSON [facility] Color Yellow 10/27/2023 10:22 AM SPECIAL EFFECTS PERSON [facility] Comment: ----REFERENCE VALUE---- Colorless Yellow Alana Blood Moderate(A) Negative 10/27/2023 10:22 AM SPECIAL EFFECTS PERSON [facility] Nitrite Negative Negative 10/27/2023 10:22 AM SPECIAL EFFECTS PERSON [facility] Leukocyte Esterase Moderate(A) Negative 10/27/2023 10:22 AM SPECIAL EFFECTS PERSON [facility] Protein Negative mg/dL 10/27/2023 10:22 AM SPECIAL EFFECTS PERSON [facility] Comment: ----REFERENCE VALUE---- Negative Trace Glucose Negative Negative mg/dL 10/27/2023 10:22 AM SPECIAL EFFECTS PERSON [facility] Ketones, QI(U) Negative Negative mg/dL 10/27/2023 10:22 AM SPECIAL EFFECTS PERSON [facility] Bilirubin Negative Negative 10/27/2023 10:22 AM SPECIAL EFFECTS PERSON [facility] pH 5.5 5.0 - 8.0 10/27/2023 10:22 AM SPECIAL EFFECTS PERSON [facility] Specific [place] 1.015 1.001 - 1.035 10/27/2023 10:22 AM SPECIAL EFFECTS PERSON [facility] Urobilinogen 0.2 0.2 - 1.0 mg/dL 10/27/2023 10:22 AM SPECIAL EFFECTS PERSON [facility] White Blood Cells 31-40(A) /hpf 10/27/2023 10:33 AM SPECIAL EFFECTS PERSON [facility] Comment: ----REFERENCE VALUE---- Males: 0-3 Females: 0-10 Unknown: 0-10 Red Blood Cells 11-20(A) 0 - 2 /hpf 10:33 AM SPECIAL EFFECTS PERSON [facility] Dysmorphic Red Blood Cells <=25 <=25 % 10/27/2023 10:33 AM SPECIAL EFFECTS PERSON [facility] Hyaline Casts 1-3 /lpf 10/27/2023 10:33 AM SPECIAL EFFECTS PERSON [facility] Crystals Calcium Oxalate(A) None Seen /lpf 10/27/2023 10:33 AM SPECIAL EFFECTS PERSON [facility] Mucus Present /hpf 10/27/2023 10:33 AM SPECIAL EFFECTS PERSON [facility] Squamous Cells Occ-3 /hpf 10/27/2023 10:33 AM SPECIAL EFFECTS PERSON [facility] Bacteria Present(A) None Seen 10/27/2023 10:33 AM SPECIAL EFFECTS PERSON [facility] Yeast Present(A) None Seen 10/27/2023 10:33 AM SPECIAL EFFECTS PERSON [facility] Urine (Urine, Indwelling Catheter) 10/27/2023 10:15 AM SPECIAL EFFECTS PERSON 10/27/2023 10:20 AM SPECIAL EFFECTS PERSON Camden Munoz M.D. LAB URINE ORDERABLES Performing Organization Address [facility]/ZIP Co de Phone Number [facility] [address] [place] [phone], [facility] in [address] [address] * (ABNORMAL) Morphology Evaluation (10/27/2023 6:48 AM SPECIAL EFFECTS PERSON) Only the most recent of5 resultswithin the time period is included. RBC Morphology See Specific Findings 10/27/2023 7:34 AM SPECIAL EFFECTS PERSON [facility] PLT Morphology Normal 10/27/2023 7:34 AM SPECIAL EFFECTS PERSON [facility] PLT Estimate Adequate Adequate 10/27/2023 7:34 AM SPECIAL EFFECTS PERSON [facility] Anisocytosis Slight(A) 10/27/2023 7:34 AM SPECIAL EFFECTS PERSON [facility] Reactive/Atypica l Lymphocytes Present(A) Not Seen 10/27/2023 7:34 AM SPECIAL EFFECTS PERSON [facility] Hypochromia Slight(A) Not Seen 10/27/2023 7:34 AM SPECIAL EFFECTS PERSON [facility] Blood 10/27/2023 6:48 AM SPECIAL EFFECTS PERSON 10/27/2023 7:04 AM SPECIAL EFFECTS PERSON Nicole Kaiser M.D. LAB BLOOD ADD-ON Performing Organization Address City/[facility]/ZIP Co de Phone Number [facility] [address] [place] [phone], [facility] in [address] [address] * (ABNORMAL) CBC with Differential, Blood (10/27/2023 6:48 AM SPECIAL EFFECTS PERSON) Only the most recent of6 resultswithin the time period is included. Hemoglobin 14.4 11.6 - 15.0 g/dL 10/27/2023 7:34 AM SPECIAL EFFECTS PERSON [facility] Hematocrit 46.5(H) 35.5 - 44.9 % 10/27/2023 7:34 AM SPECIAL EFFECTS PERSON [facility] Erythrocytes 5.46(H) 3.92 - 5.13 x10(12)/L 10/27/2023 7:34 AM SPECIAL EFFECTS PERSON [facility] MCV 85.2 78.2 - 97.9 fL 10/27/2023 7:34 AM SPECIAL EFFECTS PERSON [facility] RBC Distrib Width 19.9(H) 12.2 - 16.1 % 10/27/2023 7:34 AM SPECIAL EFFECTS PERSON [facility] Platelet Count 293 157 - 371 x10(9)/L 10/27/2023 7:34 AM SPECIAL EFFECTS PERSON [facility] Leukocytes 21.8(H) 3.4 - 9.6 x10(9)/L 10/27/2023 7:34 AM SPECIAL EFFECTS PERSON [facility] Neutrophils 14.70(H) 1.56 - 6.45 x10(9)/L 10/27/2023 7:34 AM SPECIAL EFFECTS PERSON [facility] Lymphocytes 5.51(H) 0.95 - 3.07 x10(9)/L 10/27/2023 7:34 AM SPECIAL EFFECTS PERSON [facility] Monocytes 1.35(H) 0.26 - 0.81 x10(9)/L 10/27/2023 7:34 AM SPECIAL EFFECTS PERSON [facility] Eosinophils 0.09 0.03 - 0.48 x10(9)/L 10/27/2023 7:34 AM SPECIAL EFFECTS PERSON [facility] Basophils 0.10(H) 0.01 - 0.08 x10(9)/L 10/27/2023 7:34 AM SPECIAL EFFECTS PERSON [facility] Blood (Blood, Venous) 10/27/2023 6:48 AM SPECIAL EFFECTS PERSON 10/27/2023 7:04 AM SPECIAL EFFECTS PERSON Nicole Kaiser M.D. LAB BLOOD ADD-ON [facility] [address] [place] [phone], [facility] in [address] [address] * (ABNORMAL) CRP (C-Reactive Protein) (10/22/2023 6:19 AM SPECIAL EFFECTS PERSON) Only the most recent of3 resultswithin the time period is included. C-Reactive Protein (CRP), P 12.0(H) <5.0 mg/L 10/22/2023 7:01 AM SPECIAL EFFECTS PERSON [facility] Blood (Blood, Venous) 10/22/2023 6:19 AM SPECIAL EFFECTS PERSON 10/22/2023 6:39 AM SPECIAL EFFECTS PERSON Williams Barber M.D. LAB BLOOD ADD -ON Performing Organization Address [facility] Co de Phone Number [facility] [address] [place] [phone], [facility] in [address] [address] * Buttocks/Sacrum (bilateral)-Family Medicine Image Exam (10/20/2023 10:00 AM SPECIAL EFFECTS PERSON) 10/20/2023 9:58 AM SPECIAL EFFECTS PERSON Narrative IIMS - 10/20/2023 10:00 AM SPECIAL EFFECTS PERSON This order has been created and auto-finalized to support the import of images acquired without order. The clinical documentation to support these images can be found on the encounter that produced images. Provider Not In System IMG NON RAD IMAGI NG PROCEDURES Performing Organization Address [facility] de Phone Number IIMS NA * Anus-Emergency Department Image Exam (10/19/2023 10:26 AM SPECIAL EFFECTS PERSON) Only the most recent of5 resultswithin the time period is included. 10/19/2023 10:2 3 AM SPECIAL EFFECTS PERSON Narrative IIMS - 10/19/2023 10:26 AM SPECIAL EFFECTS PERSON This order has been created and auto-finalized to support the import of images acquired without order. The clinical documentation to support these images can be found on the encounter that produced images. Provider Not In System IMG NON RAD IMAGI NG PROCEDURES Performing Organization Address [facility] de Phone Number IIMS NA * (ABNORMAL) Hepatic Function Panel (10/19/2023 4:27 AM SPECIAL EFFECTS PERSON) Bilirubin, Total, P 0.4 0.0 - 1.2 mg/dL 10/19/2023 4:49 AM SPECIAL EFFECTS PERSON [facility] Bilirubin, Direct, P <0.2 0.0 - 0.3 mg/dL 10/19/2023 4:49 AM SPECIAL EFFECTS PERSON [facility] Aspartate Aminotransferase (AST), P 38 8 - 43 U/L 10/19/2023 4:49 AM SPECIAL EFFECTS PERSON [facility] Alanine Aminotransferase (ALT), P 17 7 - 45 U/L 10/19/2023 4:49 AM SPECIAL EFFECTS PERSON [facility] Alkaline Phosphatase, P 148(H) 35 - 104 U/L 10/19/2023 4:49 AM SPECIAL EFFECTS PERSON [facility] Albumin, P 3.1(L) 3.5 - 5.0 g/dL 10/19/2023 4:49 AM SPECIAL EFFECTS PERSON [facility] Protein, Total, P 5.0(L) 6.3 - 7.9 g/dL 10/19/2023 4:49 AM SPECIAL EFFECTS PERSON [facility] Blood (Blood, Venous) 10/19/2023 4:27 AM SPECIAL EFFECTS PERSON 10/19/2023 4:29 AM SPECIAL EFFECTS PERSON Pancho Burr M.D. LAB BLOOD ADD-ON Performing Organization Address [facility] Co de Phone Number [facility] [address] [place] [phone], [facility] [place] [address] * (ABNORMAL) D-Dimer (10/19/2023 4:27 AM SPECIAL EFFECTS PERSON) D-Dimer, P 3988(H) <=500 ng/mL FEU 10/19/2023 4:46 AM SPECIAL EFFECTS PERSON [facility] Comment: D-dimer concentrations increase with age. [...] (PE). Blood (Blood, Venous) 10/19/2023 4:27 AM SPECIAL EFFECTS PERSON 10/19/2023 4:29 AM SPECIAL EFFECTS PERSON Pancho Burr M.D. LAB BLOOD ADD-ON [facility] [address] [place] [address], [facility] in [place] [address] [place] [address] * (ABNORMAL) MRSA PCR, Nasal (10/19/2023 3:35 AM SPECIAL EFFECTS PERSON) MRSA Screen, Nasal by PCR Positive(A ) Negative 10/19/2023 5:28 PM SPECIAL EFFECTS PERSON [facility] Semi-Urgent This is a semi-urgen t result(FLEMING) [facility] Swab (Nares) 10/19/2023 3:35 AM SPECIAL EFFECTS PERSON 10/19/2023 4:22 PM SPECIAL EFFECTS PERSON Pancho Burr M.D. LAB MICROBIOLOGY - GENERAL ORDERABLES Performing Organization Address [facility] Co de Phone Number [facility] [address] [place] [address], [facility] in [place] [address] [place] [address] * (ABNORMAL) NT-Pro B-Type Natriuretic Peptide (BNP) (10/18/2023 11:48 PM SPECIAL EFFECTS PERSON) NT-Pro BNP 589(H) <=540 pg/mL 10/19/2023 12:23 AM SPECIAL EFFECTS PERSON [facility] Comment: NT-proBNP values less than 300 [...] failure. Blood (Blood, Venous) 10/18/2023 11:48 PM SPECIAL EFFECTS PERSON 10/18/2023 11:59 PM SPECIAL EFFECTS PERSON Iam Herrera D.O. LAB BLOOD ADD-ON Performing Organization Address City/[facility]/ZIP Co de Phone Number [facility] [address] [place] [address], [facility] NPR[facility] [address] [place] [address] * ECG 12 Lead (10/18/2023 11:32 PM SPECIAL EFFECTS PERSON) Ventricular Rate ECG/Min 101 BPM MUSE MT Interval 140 ms MUSE QRSD Interval 72 ms MUSE QT Interval 326 ms MUSE QTC Interval 422 ms MUSE P [employer] 58 degrees MUSE R [employer] 18 degrees MUSE T Wave [employer] 57 degrees MUSE 10/18/2023 11:3 2 PM SPECIAL EFFECTS PERSON 10/18/2023 11:52 PM SPECIAL EFFECTS PERSON Impressions MUSE - 10/18/2023 11:52 PM SPECIAL EFFECTS PERSON Sinus tachycardia Nonspecific T wave abnormality No previous ECGs available Reviewed by ANGELITO Allen Narrative Procedure Note Roshan East M.D., Ph.D. - 10/18/2023 IMPRESSION: Sinus tachycardia Nonspecific T wave abnormality No previous ECGs available Reviewed by ANGELITO Allen Iam Herrera D.O. ECG ORDERABLES MUSE NA * (ABNORMAL) Bacterial Culture, Aerobic + Susceptibility, Urine (10/18/2023 9:14 PM SPECIAL EFFECTS PERSON) Urine Culture YEAST >100,000 cfu/mL (A) 10/20/2023 12:11 PM SPECIAL EFFECTS PERSON [facility] Comment:No further identific ation Urine (Urine, Indwelling Catheter) 10/18/2023 9:14 PM SPECIAL EFFECTS PERSON 10/19/2023 4:21 PM SPECIAL EFFECTS PERSON Comment:Specimen Source Site : Urine Iam Herrera D.O. LAB MICROBIOLOGY - G ENERAL ORDERABLES [facility] [address] [place] [address], [place] [facility] in [place] [address] [place] [address] * Lactate for Sepsis with Reflex (10/18/2023 8:46 PM SPECIAL EFFECTS PERSON) Pathologist [facility] Lactate, P 1.8 0.5 - 2.2 mmol/L 10/18/2023 9:12 PM SPECIAL EFFECTS PERSON [facility] Blood (Blood, Venous) 10/18/2023 8:46 PM SPECIAL EFFECTS PERSON 10/18/2023 8:49 PM SPECIAL EFFECTS PERSON Iam Herrera D.O. LAB BLOOD NON ADD-ON Performing Organization Address [facility]/ZIP Co de Phone Number [facility] [address] [place] [address], [address] [address] * Bacteria / Lucy Culture, Blood #2 (10/18/2023 8:46 PM SPECIAL EFFECTS PERSON) Only the most recent of2 resultswithin the time period is included. Pathologist [facility] Bacteria/Herlinda da Culture, Blood No growth after 5 day/s of incubation. 10/23/2023 9:03 PM SPECIAL EFFECTS PERSON NPRG Blood (Blood, Peripheral Draw) 10/18/2023 8:46 PM SPECIAL EFFECTS PERSON 10/18/2023 8:49 PM SPECIAL EFFECTS PERSON Comment:Specimen Source Site : Blood Iam Herrera D.O. LAB MICROBIOLOGY - G ENERAL ORDERABLES Performing Organization Address [facility] Co de Phone Number [facility] [address] [place] [address], [address] [address] * Influenza A/B and RSV, PCR, Point of Care (10/18/2023 8:35 PM SPECIAL EFFECTS PERSON) Pathologist [facility] Influenza A, POCT Negative Negative 10/18/2023 8:52 PM SPECIAL EFFECTS PERSON NPRG Influenza B, POCT Negative Negative 10/18/2023 8:52 PM SPECIAL EFFECTS PERSON NPRG Resp Syncytial Virus, POCT Negative Negative 10/18/2023 8:52 PM SPECIAL EFFECTS PERSON NPRG Swab (Nasopharynx) 10/18/2023 8:35 PM SPECIAL EFFECTS PERSON 10/18/2023 8:50 PM SPECIAL EFFECTS PERSON Iam Herrera D.O. LAB POCT ORDERABLES - DEVICE Performing Organization Address City/[facility]/ZIP Co de Phone Number [facility] [address] [place] [address], [facility] [address] [place] [address] * SARS Coronavirus 2, PCR Rapid Symptomatic (10/18/2023 8:28 PM SPECIAL EFFECTS PERSON) [facility] SARS CoV-2, PCR, Rapid, V Undetected Undetected 10/18/2023 9:11 PM SPECIAL EFFECTS PERSON NPRG Comment: ----ADDITIONAL INFORMATION---- This RT-PCR test was performed using the [employer] SARS-CoV-2 and Influenza A/B Reagent assay from [employer], which has received Emergency Use Authorization(EUA) by the U.S. Food and Drug Administration. Fact sheets for this Emergency Use Authorization (EUA) assay can be found at the following links: For Healthcare Providers: https://www.fda.gov/media/910498/download For Patients: https://www.fda.gov/media/951726/download SARS Coronavirus 2, Source, Rapid Swab, Nasopharynx 10/18/2023 8:49 PM SPECIAL EFFECTS PERSON NPRG Swab (Nasopharynx) 10/18/2023 8:28 PM SPECIAL EFFECTS PERSON 10/18/2023 8:49 PM SPECIAL EFFECTS PERSON Iam Herrera D.O. LAB MICROBIOLOGY - G ENERAL ORDERABLES [facility] [address] [place] [address], [facility] NPR[facility] [address] [place] [address] from Last 3 Months Advance Directives For more information, please contact: [phone] Documents on File Type Date Recorded Patient Oracle Application Consultant Expl anation Advance Directives 09/19/2023 4:06 PM POLS T/MOLST * DNR/DNI (Latest Code Status on File) Date Activated Date Inactivated Comments 10/19/2023 6:50 PM 10/27/2023 4:16 PM * Full Code Date Activated Date Inactivated Comments 10/19/2023 2:13 AM 10/19/2023 6:50 PM Question Answer Comments Full Code: Discussed Care Teams Heat Plant Specialist Relationship Specialty Start Date End Date Elsewhere, Pcp PCP - General Internal Medicine 12/09/23
--- OUTSIDE RECORDS SUMMARY | 2024-01-17 00:02 | XMS_ITS | Clinical Summary ---
Author Name Unknown Organization [facility] Address [address] [place] [address] Care Team Providers Care Type Bar And Segment Assembler Name Role Phone Elsewhere, Pcp Primary Care Provider Unavailabl e Source Comments Patient records contain information from all sites at [facility]. For routine questions regarding patient records, call [phone] during business hours, M-F 8:00 AM - 5:00 PM Central Time. Record requests for emergency care only can be directed to [phone] at any time.[facility] Allergies Active Allergy Reactions Criticality Noted Date [...] 09/19/2023 Hypertension Essential Primary 09/19/2023 Corticosteroid Treatment Nursing Home Systemic 05/2023 Paraplegia 09/19/2023 Osteoporosis 06/28/2021 Acute [...] Department of Physical Medicine and Rehabilitation in [place], [place] [address] [place] [address] Charlotte Craig, [facility]3]-LEARNING AND DEVELOPMENT ADMINISTRATOR 12/01/2023 Clinical Communication Department of Pulmonary Medicine in [place] [id number] [place] [address] Mercy Poe P.A.-C. 11/28/2023 4:00 PM RIVER CROSSING SUPERVISOR External Outreach Senior Services in [address] [address] Osiris Otero APRN, C.N.P., R.N. Chronic Diastolic [...] Disorder 11/28/2023 Clinical Communication Senior Services in [address] [address] Haven Saxena, RRobertoN. 11/26/2023 Documentation Senior Services in [address] [address] Osiris Otero APRN, C.N.P., R.N. 11/25/2023 Clinical Communication Senior Services in [address] [address] Osiris Otero APRN, C.N.P., R.N. 11/10/2023 Orders Only Senior Services in [address] [address] Osiris Otero APRN, C.N.P., R.N. Neurogenic Bladder (Primary Dx) 11/07/2023 9:00 AM RIVER CROSSING SUPERVISOR External Outreach [facility] in [address] [address] Fernando Renee M.D. 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 Hypokalemia Discharge Disposition: Home or Self Care 10/31/2023 10:00 AM RIVER CROSSING SUPERVISOR External Outreach Senior Services in [place] [address] [place] [address] Osiris Otero APRN, C.N.P., R.N. Orthopnea (Primary [...] Apnea Adult; Paraplegia (HCC) 10/21/2023 1:41 AM RIVER CROSSING SUPERVISOR - 10/21/2023 11:59 PM RIVER CROSSING SUPERVISOR Hospital Encounter Department of Laboratory Medicine in [place], [place] [address] [place] [address] Osiris Otero APRN, C.N.P., R.N. Edema Localized Discharge Disposition: Home or Self Care 10/20/2023 10:00 AM RIVER CROSSING SUPERVISOR Ancillary Procedure Department of Family Medicine 10/19/2023 10:30 AM RIVER CROSSING SUPERVISOR Ancillary Procedure Department of Emergency Medicine 10/19/2023 10:25 AM RIVER CROSSING SUPERVISOR Ancillary Procedure Department of Emergency Medicine 10/19/2023 10:15 AM RIVER CROSSING SUPERVISOR Ancillary Procedure Department of Emergency Medicine 10/19/2023 10:10 AM RIVER CROSSING SUPERVISOR Ancillary Procedure Department of Emergency Medicine 10/19/2023 9:50 AM RIVER CROSSING SUPERVISOR Ancillary Procedure Department of Emergency Medicine 10/19/2023 2:09 AM RIVER CROSSING SUPERVISOR - 10/27/2023 2:06 PM RIVER CROSSING SUPERVISOR Hospital Encounter [facility], Second Floor [address] [facility] [place] [place] [address] Pancho Burr M.D. Schimming, Christopher, M.D. Hayes, Lisa M, M.D. Benson, Troy, M.D. 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 Pneumonia (Primary Dx); Hypoxia Discharge Disposition: [facility] 10/18/2023 Intake [facility] from Last 3 Months Immunizations Name Administration [...] drink = 0.6 oz pur e alcohol) [facility] Utilities Answer Date Recorded In the past 12 months has [employer], gas, oil, or water [employer] threatened to shut off services in your [...] your living situation today? I have a [facility] place to live 10/19/2023 Sex and Gender Information Value Date Recorded Sex Assigned at Not on file Gender Identity Not on file Sexual Orientation Not on file Last Filed Vital Signs Vital Sign Reading Time Taken Comments Blood Pressure 110/68 11/28/2023 8:43 AM RIVER CROSSING SUPERVISOR Pulse 76 11/28/2023 8:43 AM RIVER CROSSING SUPERVISOR Temperature 36.7 ??C (98 ??F) 11/28/2023 8:43 AM RIVER CROSSING SUPERVISOR Respiratory Rate 18 11/28/2023 8:43 AM RIVER CROSSING SUPERVISOR Oxygen Saturation 95% 11/28/2023 8:43 AM RIVER CROSSING SUPERVISOR RA Inhaled Oxygen Concentration - - Weight 58.8 kg (129 lb 9.6 oz) 11/28/2023 8:43 A M RIVER CROSSING SUPERVISOR Height 152 cm (4' 11.84) 10/19/2023 5:00 AM RIVER CROSSING SUPERVISOR Body Mass Index 25.44 10/19/2023 5:00 AM RIVER CROSSING SUPERVISOR Plan of Treatment Health Maintenance Due Date [...] METABOLIC PANEL, S/P Routine 11/04/2023 6:52 AM RIVER CROSSING SUPERVISOR Hypokalemia DX CHEST PORTABLE 1 VIEW RAD - Routine (most inpatients and all outpatients) 10/27/2023 10:24 AM RIVER CROSSING SUPERVISOR URINALYSIS WITH MICROSCOPIC Routine 10/27/2023 10:15 AM RIVER CROSSING SUPERVISOR MORPHOLOGY EVALUATION Routine 10/27/2023 6:48 AM RIVER CROSSING SUPERVISOR BASIC METABOLIC PANEL, S/P Routine 10/27/2023 6:48 AM RIVER CROSSING SUPERVISOR CBC WITH DIFFERENTIAL, B Routine 10/27/2023 6:48 AM RIVER CROSSING SUPERVISOR DX CHEST PORTABLE 1 VIEW RAD - Semiurgent (Fast; most ED patients; some inpatients) 10/22/2023 10:53 AM RIVER CROSSING SUPERVISOR MORPHOLOGY EVALUATION Routine 10/22/2023 6:19 AM RIVER CROSSING SUPERVISOR C-REACTIVE PROTEIN (CRP), S/P Routine 10/22/2023 6:19 AM RIVER CROSSING SUPERVISOR CBC WITH DIFFERENTIAL, B Routine 10/22/2023 6:19 AM RIVER CROSSING SUPERVISOR MORPHOLOGY EVALUATION Routine 10/21/2023 6:32 AM RIVER CROSSING SUPERVISOR CBC WITH DIFFERENTIAL, B Routine 10/21/2023 6:32 AM RIVER CROSSING SUPERVISOR BASIC METABOLIC PANEL, S/P Routine 10/21/2023 6:32 AM RIVER CROSSING SUPERVISOR FAMILY MEDICINE IMAGE EXAM Routine 10/20/2023 10:00 AM RIVER CROSSING SUPERVISOR MORPHOLOGY EVALUATION Routine 10/20/2023 6:08 AM RIVER CROSSING SUPERVISOR CBC WITH DIFFERENTIAL, B Routine 10/20/2023 6:08 AM RIVER CROSSING SUPERVISOR BASIC METABOLIC PANEL, S/P Routine 10/20/2023 6:08 AM RIVER CROSSING SUPERVISOR C-REACTIVE PROTEIN (CRP), S/P Routine 10/20/2023 6:08 AM RIVER CROSSING SUPERVISOR EMERGENCY DEPARTMENT IMAGE EXAM Routine 10/19/2023 10:26 AM RIVER CROSSING SUPERVISOR EMERGENCY DEPARTMENT IMAGE EXAM Routine 10/19/2023 10:25 AM RIVER CROSSING SUPERVISOR EMERGENCY DEPARTMENT IMAGE EXAM Routine 10/19/2023 10:09 AM RIVER CROSSING SUPERVISOR EMERGENCY DEPARTMENT IMAGE EXAM Routine 10/19/2023 10:09 AM RIVER CROSSING SUPERVISOR EMERGENCY DEPARTMENT IMAGE EXAM Routine 10/19/2023 9:50 AM RIVER CROSSING SUPERVISOR MORPHOLOGY EVALUATION Routine 10/19/2023 4:27 AM RIVER CROSSING SUPERVISOR CBC WITH DIFFERENTIAL, B Routine 10/19/2023 4:27 AM RIVER CROSSING SUPERVISOR HEPATIC FUNCTION PANEL, S Routine 10/19/2023 4:27 AM RIVER CROSSING SUPERVISOR BASIC METABOLIC PANEL, S/P Routine 10/19/2023 4:27 AM RIVER CROSSING SUPERVISOR C-REACTIVE PROTEIN (CRP), S/P Routine 10/19/2023 4:27 AM RIVER CROSSING SUPERVISOR D-DIMER, P Routine 10/19/2023 4:27 AM RIVER CROSSING SUPERVISOR NASAL SCREEN FOR MRSA BY RAPID PCR Routine 10/19/2023 3:35 AM RIVER CROSSING SUPERVISOR NT-PRO B-TYPE NATRIURETIC PEPTIDE (BNP), S STAT 10/18/2023 11:48 PM RIVER CROSSING SUPERVISOR ECG Routine 10/18/2023 11:32 PM RIVER CROSSING SUPERVISOR URINALYSIS WITH MICROSCOPIC Routine 10/18/2023 9:14 PM RIVER CROSSING SUPERVISOR BACTERIAL CULTURE, AEROBIC + SUSC, URINE Routine 10/18/2023 9:14 PM RIVER CROSSING SUPERVISOR DX CHEST PORTABLE 1 VIEW RAD - Semiurgent (Fast; most ED patients; some inpatients) 10/18/2023 9:01 PM RIVER CROSSING SUPERVISOR BASIC METABOLIC PANEL, S/P STAT 10/18/2023 8:46 PM RIVER CROSSING SUPERVISOR LACTATE FOR SEPSIS WITH REFLEX STAT 10/18/2023 8:46 PM RIVER CROSSING SUPERVISOR CBC WITH DIFFERENTIAL, B STAT 10/18/2023 8:46 PM RIVER CROSSING SUPERVISOR BACTERIA / LUCY CULTURE, BLOOD STAT 10/18/2023 8:46 PM RIVER CROSSING SUPERVISOR BACTERIA / LUCY CULTURE, BLOOD STAT 10/18/2023 8:46 PM RIVER CROSSING SUPERVISOR INFLUENZA A, B, RSV, PCR, POCT STAT 10/18/2023 8:35 PM RIVER CROSSING SUPERVISOR SARS CORONAVIRUS 2, PCR RAPID, V STAT 10/18/2023 8:28 PM RIVER CROSSING SUPERVISOR from Last 3 Months Results * (ABNORMAL) EXT Home SARS Coronavirus-2 (COVID-19) Antigen (11/13/2023) EXT Home SARS-CoV-2 Antigen Presumptive Positive(A) Presumptive Negative OTHER (SPECIFY IN METAL GRINDER) Swab 11/13/2023 Historical Provider LAB MICROBIOLOGY - G ENERAL ORDERABLES OTHER (SPECIFY IN METAL GRINDER) N/A * (ABNORMAL) Basic Metabolic Panel (11/04/2023 6:52 AM RIVER CROSSING SUPERVISOR) Only the most recent of6 resultswithin the time period is included. Potassium, P 4.1 3.6 - 5.2 mmol/L 11/04/2023 8:14 AM RIVER CROSSING SUPERVISOR [facility] Sodium, P 142 135 - 145 mmol/L 11/04/2023 8:14 AM RIVER CROSSING SUPERVISOR NPRG Chloride, P 102 98 - 107 mmol/L 11/04/2023 8:14 AM RIVER CROSSING SUPERVISOR NPRG Bicarbonate, P 30(H) 22 - 29 mmol/L 11/04/2023 8:14 AM RIVER CROSSING SUPERVISOR NPRG Anion Gap, P 10 7 - 15 11/04/2023 8:14 AM RIVER CROSSING SUPERVISOR NPRG BUN (Blood Urea Nitrogen), P 21 6 - 21 mg/dL 11/04/2023 8:14 AM RIVER CROSSING SUPERVISOR NPRG Creatinine 0.28(L) 0.59 - 1.04 mg/dL 11/04/2023 8:14 AM RIVER CROSSING SUPERVISOR NPRG Estimated GFR (eGFR) >90 >=60 mL/min/BSA 11/04/2023 8:14 AM RIVER CROSSING SUPERVISOR NPRG Comment: Estimated GFR calculated using the 2020 CKD_EPI creatinine equation. Calcium, Total, P 9.1 8.8 - 10.2 mg/dL 11/04/2023 8:14 AM RIVER CROSSING SUPERVISOR NPRG Glucose, P 79 70 - 140 mg/dL 11/04/2023 8:14 AM RIVER CROSSING SUPERVISOR NPRG Blood (Blood, Venous) 11/04/2023 6:52 AM RIVER CROSSING SUPERVISOR 11/04/2023 7:43 AM RIVER CROSSING SUPERVISOR Osiris Otero APRN, C.N.P., R.N. LAB B LOOD ADD-ON [facility] [address] [place] [address], [facility] NPRG [facility] [address] [place] [address] * DX Chest Portable 1 View (10/27/2023 10:24 AM RIVER CROSSING SUPERVISOR) Only the most recent of3 resultswithin the time period is included. Anatomical Region Laterality Modality Chest, Thoracic RST LOS, Tho racic ARZ LOS, Thoracic FLA LOS N/A Digital Radiography Impressions 10/27/2023 10:34 AM RIVER CROSSING SUPERVISOR No acute infiltrates. There is of bibasilar discoid atelectasis as described. Narrative 10/27/2023 10:34 AM RIVER CROSSING SUPERVISOR EXAM: DX CHEST PORTABLE 1 VIEW COMPARISON: [...] bibasilar discoid atelectasis asdescribed. Camden Munoz M.D. G DIAGNOSTIC IMAGI NG PROCEDURES * (ABNORMAL) Urinalysis with Microscopic: Urine, Indwelling Catheter (10/27/2023 10:15 AM RIVER CROSSING SUPERVISOR) Only the most recent of2 resultswithin the time period is included. Source Urine, Urine, Indwelling Catheter 10/27/2023 10:20 AM RIVER CROSSING SUPERVISOR [facility] Clarity Slightly Cloudy(A) Clear 10/27/2023 10:22 AM RIVER CROSSING SUPERVISOR [facility] Color Yellow 10/27/2023 10:22 AM RIVER CROSSING SUPERVISOR [facility] Comment: ----REFERENCE VALUE---- Colorless Yellow Alana Blood Moderate(A) Negative 10/27/2023 10:22 AM RIVER CROSSING SUPERVISOR [facility] Nitrite Negative Negative 10/27/2023 10:22 AM RIVER CROSSING SUPERVISOR [facility] Leukocyte Esterase Moderate(A) Negative 10/27/2023 10:22 AM RIVER CROSSING SUPERVISOR [facility] Protein Negative mg/dL 10/27/2023 10:22 AM RIVER CROSSING SUPERVISOR [facility] Comment: ----REFERENCE VALUE---- Negative Trace Glucose Negative Negative mg/dL 10/27/2023 10:22 AM RIVER CROSSING SUPERVISOR [facility] Ketones, QI(U) Negative Negative mg/dL 10/27/2023 10:22 AM RIVER CROSSING SUPERVISOR [facility] Bilirubin Negative Negative 10/27/2023 10:22 AM RIVER CROSSING SUPERVISOR [facility] pH 5.5 5.0 - 8.0 10/27/2023 10:22 AM RIVER CROSSING SUPERVISOR [facility] Specific [place] 1.015 1.001 - 1.035 10/27/2023 10:22 AM RIVER CROSSING SUPERVISOR [facility] Urobilinogen 0.2 0.2 - 1.0 mg/dL 10/27/2023 10:22 AM RIVER CROSSING SUPERVISOR [facility] White Blood Cells 31-40(A) /hpf 10/27/2023 10:33 AM RIVER CROSSING SUPERVISOR [facility] Comment: ----REFERENCE VALUE---- Males: 0-3 Females: 0-10 Unknown: 0-10 Red Blood Cells 11-20(A) 0 - 2 /hpf 10:33 AM RIVER CROSSING SUPERVISOR [facility] Dysmorphic Red Blood Cells <=25 <=25 % 10/27/2023 10:33 AM RIVER CROSSING SUPERVISOR [facility] Hyaline Casts 1-3 /lpf 10/27/2023 10:33 AM RIVER CROSSING SUPERVISOR [facility] Crystals Calcium Oxalate(A) None Seen /lpf 10/27/2023 10:33 AM RIVER CROSSING SUPERVISOR [facility] Mucus Present /hpf 10/27/2023 10:33 AM RIVER CROSSING SUPERVISOR [facility] Squamous Cells Occ-3 /hpf 10/27/2023 10:33 AM RIVER CROSSING SUPERVISOR [facility] Bacteria Present(A) None Seen 10/27/2023 10:33 AM RIVER CROSSING SUPERVISOR [facility] Yeast Present(A) None Seen 10/27/2023 10:33 AM RIVER CROSSING SUPERVISOR [facility] Urine (Urine, Indwelling Catheter) 10/27/2023 10:15 AM RIVER CROSSING SUPERVISOR 10/27/2023 10:20 AM RIVER CROSSING SUPERVISOR Camden Munoz M.D. LAB URINE ORDERABLES [facility] [address] [place] [id number], [facility] [place] [address] * (ABNORMAL) Morphology Evaluation (10/27/2023 6:48 AM RIVER CROSSING SUPERVISOR) Only the most recent of5 resultswithin the time period is included. RBC Morphology See Specific Findings 10/27/2023 7:34 AM RIVER CROSSING SUPERVISOR [facility] PLT Morphology Normal 10/27/2023 7:34 AM RIVER CROSSING SUPERVISOR [facility] PLT Estimate Adequate Adequate 10/27/2023 7:34 AM RIVER CROSSING SUPERVISOR [facility] Anisocytosis Slight(A) 10/27/2023 7:34 AM RIVER CROSSING SUPERVISOR [facility] Reactive/Atypica l Lymphocytes Present(A) Not Seen 10/27/2023 7:34 AM RIVER CROSSING SUPERVISOR [facility] Hypochromia Slight(A) Not Seen 10/27/2023 7:34 AM RIVER CROSSING SUPERVISOR [facility] Blood 10/27/2023 6:48 AM RIVER CROSSING SUPERVISOR 10/27/2023 7:04 AM RIVER CROSSING SUPERVISOR Nicole Kaiser M.D. LAB BLOOD ADD-ON [facility] [address] [place] [address], [facility] in [address] [address] * (ABNORMAL) CBC with Differential, Blood (10/27/2023 6:48 AM RIVER CROSSING SUPERVISOR) Only the most recent of6 resultswithin the time period is included. Hemoglobin 14.4 11.6 - 15.0 g/dL 10/27/2023 7:34 AM RIVER CROSSING SUPERVISOR [facility] Hematocrit 46.5(H) 35.5 - 44.9 % 10/27/2023 7:34 AM RIVER CROSSING SUPERVISOR [facility] Erythrocytes 5.46(H) 3.92 - 5.13 x10(12)/L 10/27/2023 7:34 AM RIVER CROSSING SUPERVISOR [facility] MCV 85.2 78.2 - 97.9 fL 10/27/2023 7:34 AM RIVER CROSSING SUPERVISOR [facility] RBC Distrib Width 19.9(H) 12.2 - 16.1 % 10/27/2023 7:34 AM RIVER CROSSING SUPERVISOR [facility] Platelet Count 293 157 - 371 x10(9)/L 10/27/2023 7:34 AM RIVER CROSSING SUPERVISOR [facility] Leukocytes 21.8(H) 3.4 - 9.6 x10(9)/L 10/27/2023 7:34 AM RIVER CROSSING SUPERVISOR [facility] Neutrophils 14.70(H) 1.56 - 6.45 x10(9)/L 10/27/2023 7:34 AM RIVER CROSSING SUPERVISOR [facility] Lymphocytes 5.51(H) 0.95 - 3.07 x10(9)/L 10/27/2023 7:34 AM RIVER CROSSING SUPERVISOR [facility] Monocytes 1.35(H) 0.26 - 0.81 x10(9)/L 10/27/2023 7:34 AM RIVER CROSSING SUPERVISOR [facility] Eosinophils 0.09 0.03 - 0.48 x10(9)/L 10/27/2023 7:34 AM RIVER CROSSING SUPERVISOR [facility] Basophils 0.10(H) 0.01 - 0.08 x10(9)/L 10/27/2023 7:34 AM RIVER CROSSING SUPERVISOR [facility] Blood (Blood, Venous) 10/27/2023 6:48 AM RIVER CROSSING SUPERVISOR 10/27/2023 7:04 AM RIVER CROSSING SUPERVISOR Nicole Kaiser M.D. LAB BLOOD ADD-ON Performing Organization Address [facility] Co de Phone Number [facility] [address] [place] [address], [facility] in [address] [address] * (ABNORMAL) CRP (C-Reactive Protein) (10/22/2023 6:19 AM RIVER CROSSING SUPERVISOR) Only the most recent of3 resultswithin the time period is included. C-Reactive Protein (CRP), P 12.0(H) <5.0 mg/L 10/22/2023 7:01 AM RIVER CROSSING SUPERVISOR [facility] Blood (Blood, Venous) 10/22/2023 6:19 AM RIVER CROSSING SUPERVISOR 10/22/2023 6:39 AM RIVER CROSSING SUPERVISOR Williams Barber M.D. LAB BLOOD ADD -ON Performing Organization Address [facility] de Phone Number [facility] [address] [place] [address], [facility] in [address] [address] * Buttocks/Sacrum (bilateral)-Family Medicine Image Exam (10/20/2023 10:00 AM RIVER CROSSING SUPERVISOR) 10/20/2023 9:58 AM RIVER CROSSING SUPERVISOR Narrative IIMS - 10/20/2023 10:00 AM RIVER CROSSING SUPERVISOR This order has been created and auto-finalized to support the import of images acquired without order. The clinical documentation to support these images can be found on the encounter that produced images. Provider Not In System IMG NON RAD IMAGI NG PROCEDURES Performing Organization Address [facility] Co de Phone Number IIMS NA * Anus-Emergency Department Image Exam (10/19/2023 10:26 AM RIVER CROSSING SUPERVISOR) Only the most recent of5 resultswithin the time period is included. 10/19/2023 10:2 3 AM RIVER CROSSING SUPERVISOR Narrative IIMS - 10/19/2023 10:26 AM RIVER CROSSING SUPERVISOR This order has been created and auto-finalized to support the import of images acquired without order. The clinical documentation to support these images can be found on the encounter that produced images. Provider Not In System IMG NON RAD IMAGI NG PROCEDURES Performing Organization Address [facility] Co de Phone Number IIMS NA * (ABNORMAL) Hepatic Function Panel (10/19/2023 4:27 AM RIVER CROSSING SUPERVISOR) Bilirubin, Total, P 0.4 0.0 - 1.2 mg/dL 10/19/2023 4:49 AM RIVER CROSSING SUPERVISOR [facility] Bilirubin, Direct, P <0.2 0.0 - 0.3 mg/dL 10/19/2023 4:49 AM RIVER CROSSING SUPERVISOR [facility] Aspartate Aminotransferase (AST), P 38 8 - 43 U/L 10/19/2023 4:49 AM RIVER CROSSING SUPERVISOR [facility] Alanine Aminotransferase (ALT), P 17 7 - 45 U/L 10/19/2023 4:49 AM RIVER CROSSING SUPERVISOR [facility] Alkaline Phosphatase, P 148(H) 35 - 104 U/L 10/19/2023 4:49 AM RIVER CROSSING SUPERVISOR [facility] Albumin, P 3.1(L) 3.5 - 5.0 g/dL 10/19/2023 4:49 AM RIVER CROSSING SUPERVISOR [facility] Protein, Total, P 5.0(L) 6.3 - 7.9 g/dL 10/19/2023 4:49 AM RIVER CROSSING SUPERVISOR [facility] Blood (Blood, Venous) 10/19/2023 4:27 AM RIVER CROSSING SUPERVISOR 10/19/2023 4:29 AM RIVER CROSSING SUPERVISOR Pancho Burr M.D. LAB BLOOD ADD-ON Performing Organization Address City/[facility]/ZIP Co de Phone Number [facility] [address] [place] [phone] in [address] [address] * (ABNORMAL) D-Dimer (10/19/2023 4:27 AM RIVER CROSSING SUPERVISOR) Pathologist [facility] [place] D-Dimer, P 3988(H) <=500 ng/mL FEU 10/19/2023 4:[address] CROSSING SUPER[address] [facility] Comment: D-dimer concentrations increase with age. ??For [...] (PE). Blood (Blood, Venous) 10/19/2023 4:27 AM RIVER CROSSING SUPERVISOR 10/19/2023 4:29 AM RIVER CROSSING SUPERVISOR Pancho Burr M.D. LAB BLOOD ADD-ON [address] [address] in [address] [address] * (ABNORMAL) MRSA PCR, Nasal (10/19/2023 3:35 AM RIVER CROSSING SUPERVISOR) [facility] MRSA Screen, Nasal by PCR Positive(A ) Negative 10/19/2023 5:28 PM RIVER CROSSING SUPERVISOR MKTO Semi-Urgent This is a semi-urgen t result(FLEMING) [facility] Swab (Nares) 10/19/2023 3:35 AM RIVER CROSSING SUPERVISOR 10/19/2023 4:22 PM RIVER CROSSING SUPERVISOR Pancho Burr M.D. LAB MICROBIOLOGY - GENERAL ORDERABLES [facility] [address] [place] [address], [place] MK[facility] [place] [address] [place] [address] * (ABNORMAL) NT-Pro B-Type Natriuretic Peptide (BNP) (10/18/2023 11:48 PM RIVER CROSSING SUPERVISOR) NT-Pro BNP 589(H) <=540 pg/mL 10/19/2023 12:23 AM RIVER CROSSING SUPERVISOR [facility] Comment: NT-proBNP values less than [...] failure. Blood (Blood, Venous) 10/18/2023 11:48 PM RIVER CROSSING SUPERVISOR 10/18/2023 11:59 PM RIVER CROSSING SUPERVISOR Iam Herrera D.O. LAB BLOOD ADD-ON [facility] [address] [place] [address], [facility] NPRG [facility] [address] [place] [address] * ECG 12 Lead (10/18/2023 11:32 PM RIVER CROSSING SUPERVISOR) Ventricular Rate ECG/Min 101 BPM MUSE WA Interval 140 ms MUSE QRSD Interval 72 ms MUSE QT Interval 326 ms MUSE QTC Interval 422 ms MUSE P [place] 58 degrees MUSE R [place] 18 degrees MUSE T Wave [place] 57 degrees MUSE 10/18/2023 11:3 2 PM RIVER CROSSING SUPERVISOR 10/18/2023 11:52 PM RIVER CROSSING SUPERVISOR Impressions MUSE - 10/18/2023 11:52 PM RIVER CROSSING SUPERVISOR Sinus tachycardia Nonspecific T wave abnormality No previous ECGs available Reviewed by ANGELITO Allen Narrative Procedure Note Roshan East M.D., Ph.D. - 10/18/2023 IMPRESSION: Sinus tachycardia Nonspecific T wave abnormality No previous ECGs available Reviewed by ANGELITO Allen Iam Herrera D.O. ECG ORDERABLES MUSE NA * (ABNORMAL) Bacterial Culture, Aerobic + Susceptibility, Urine (10/18/2023 9:14 PM RIVER CROSSING SUPERVISOR) Urine Culture YEAST >100,000 cfu/mL (A) 10/20/2023 12:11 PM RIVER CROSSING SUPERVISOR TO Comment:No further identific ation Urine (Urine, Indwelling Catheter) 10/18/2023 9:14 PM RIVER CROSSING SUPERVISOR 10/19/2023 4:21 PM RIVER CROSSING SUPERVISOR Comment:Specimen Source Site : Urine Iam Herrera D.O. LAB MICROBIOLOGY - G ENERAL ORDERABLES Performing Organization Address [facility]/ZIP Co de Phone Number [facility] [address] [place] [address], [place] [facility] [place] [address] [place] [address] * Lactate for Sepsis with Reflex (10/18/2023 8:46 PM [employer] SUPERVISOR) Pathologist [facility] [place] Lactate, P 1.8 0.5 - 2.2 mmol/L 10/18/2023 9:12 PM [employer] SUPER[employer]OR NPR Blood (Blood, Venous) 10/18/2023 8:46 PM [employer] SUPERVISOR 10/18/2023 8:49 PM [employer] SUPERVISOR Iam Herrera D.O. LAB BLOOD NON ADD-ON Performing Organization Address City/[facility]/ZIP Co de Phone Number [facility] [address] [place] [address], [place] NPRG [facility] [address] [place] [address] * Bacteria / Lucy Culture, Blood #2 (10/18/2023 8:46 PM [employer]ING SUPERVISOR) Only the most recent of2 resultswithin the time period is included. Bacteria/Herlinda da Culture, Blood No growth after 5 day/s of incubation. 10/23/2023 9:03 PM RIVER CROSSING SUPERVISOR NPRG Blood (Blood, Peripheral Draw) 10/18/2023 8:46 PM RIVER CROSSING SUPERVISOR 10/18/2023 8:49 PM RIVER CROSSING SUPERVISOR Comment:Specimen Source Site : Blood Iam Herrera D.O. LAB MICROBIOLOGY - G ENERAL ORDERABLES Performing Organization Address [facility] Co de Phone Number [facility] [address] [place] [id number], [facility] [address] [address] * Influenza A/B and RSV, PCR, Point of Care (10/18/2023 8:35 PM RIVER CROSSING SUPERVISOR) Pathologist [facility] [place] Influenza A, POCT Negative Negative 10/18/2023 8:52 PM RIVER CROSSING SUPERVISOR NPR Influenza B, POCT Negative Negative 10/18/2023 8:52 PM RIVER CROSSING SUPERVISOR NPR Resp Syncytial Virus, POCT Negative Negative 10/18/2023 8:52 PM RIVER CROSSING SUPERVISOR NPRG Swab (Nasopharynx) 10/18/2023 8:35 PM RIVER CROSSING SUPERVISOR 10/18/2023 8:50 PM RIVER CROSSING SUPERVISOR Iam Herrera D.O. LAB POCT ORDERABLES - DEVICE Performing Organization Address [facility] Co de Phone Number [facility] [address] [place] [phone], [facility] [address] [address] * SARS Coronavirus 2, PCR Rapid Symptomatic (10/18/2023 8:28 PM RIVER CROSSING SUPERVISOR) Pathologist [facility] [place] SARS CoV-2, PCR, Rapid, V Undetected Undetected 10/18/2023 9:11 PM RIVER CROSSING SUPERVISOR NPRG Comment: ----ADDITIONAL INFORMATION---- This RT-PCR test was performed using the [employer] SARS-CoV-2 and Influenza A/B Reagent assay from [employer], which has received Emergency Use Authorization(EUA) by the U.S. Food and Drug Administration. Fact sheets for this Emergency Use Authorization (EUA) assay can be found at the following links: For Healthcare Providers: https://www.fda.gov/media/016713/download For Patients: https://www.fda.gov/media/890698/download SARS Coronavirus 2, Source, Rapid Swab, Nasopharynx 10/18/2023 8:49 PM RIVER CROSSING SUPERVISOR NPRG Swab (Nasopharynx) 10/18/2023 8:28 PM RIVER CROSSING SUPERVISOR 10/18/2023 8:49 PM RIVER CROSSING SUPERVISOR Iam Herrera D.O. LAB MICROBIOLOGY - G ENERAL ORDERABLES [facility] [address] [place] [address], [facility] NPRG [facility] [address] [place] [address] from Last 3 Months Advance Directives For more information, please contact: [phone] Documents on File Type Date Recorded Patient Sales Lead Generator Expl anation Advance Directives 09/19/2023 4:06 PM POLS T/MOLST * DNR/DNI (Latest Code Status on File) Date Activated Date Inactivated Comments 10/19/2023 6:50 PM 10/27/2023 4:16 PM * Full Code Date Activated Date Inactivated Comments 10/19/2023 2:13 AM 10/19/2023 6:50 PM Question Answer Comments Full Code: Discussed Care Teams Type Bar And Segment Assembler Relationship Specialty Start Date End Date Elsewhere, Pcp PCP - General Internal Medicine 12/09/23
--- OUTSIDE RECORDS SUMMARY | 2024-01-17 00:03 | XMS_ITS | Encounter Summary ---
Author Name Unknown Organization [facility] Address [address] [place] [address] Care Team Providers Care Brick Mason Name Role Phone Elsewhere, Pcp Primary Care Provider Unavailabl e Encounter Details Date Type Department Care Team (Late st Contact Info) Description 12/01/2023 Clinical Communication Department of Pulmonary Medicine in [address] [phone] [facility] [address] [place] [phone] Social History Tobacco Use Types Packs/Day Years Used Date Smoking Tobacco: Never Smokeless Tobacco: Never Alcohol Use Standard Drinks/Week Comments Defer 0 (1 standard drink = 0.6 oz pur e alcohol) [facility] Utilities Answer Date Recorded In the past 12 months has [facility] [employer], gas, oil, or water [employer] threatened to shut off services in your [...] your living situation today? I have a [facility] place to live 10/19/2023 Sex [...] Time COVID19 11/13/2023 11/13/2023 12/03/2023 5:55 AM LANDING SUPPORT SPECIALIST documented as of this encounter Care Teams Brick Mason Relationship Specialty Start Date End Date Elsewhere, Pcp PCP - General Internal Medicine 12/09/23 documented as of this encounter
--- OUTSIDE RECORDS SUMMARY | 2024-01-17 00:03 | XMS_ITS ---
Author Name Unknown Organization [facility] Address [address] [place] [address] Care Team Providers Care Analytics Intern Name Role Phone Unavailable Unavailable Unavailable Surgery Details Not on file Complications Check Surgery Details section. Procedure Estimated Blood Loss Check Surgery Details section. Procedure Findings Check Surgery Details section. Procedure Specimens Taken Check Surgery Details section.
--- OUTSIDE RECORDS SUMMARY | 2024-01-17 00:03 | XMS_ITS | Encounter Summary ---
Author Name Unknown Organization [facility] Address [address] [place] [address] Care Team Providers Care Gage Designer Name Role Phone Shanna Elizabeth Murcia APRNNJuan., R.N. Primary Care Provider Encounter Details Date Type Department Care Team (Late st Contact Info) Description 12/01/2023 Orders Only Department of Physical Medicine and Rehabilitation in [place], [place] [address] [place] [phone] Charlotte Craig, [facility] [address] [place] [phone] Social History Tobacco Use Types Packs/Day Years Used Date Smoking Tobacco: Never Smokeless Tobacco: Never Alcohol Use Standard Drinks/Week Comments Defer 0 (1 standard drink = 0.6 oz pur e alcohol) [facility] Utilities Answer Date Recorded In the past 12 months has [employer], gas, oil, or water [employer] threatened to shut off services in your [...] your living situation today? I have a [facility] place to live 10/19/2023 Sex and [...] Time COVID19 11/13/2023 11/13/2023 12/03/2023 5:55 AM CROSS CUT SAW OPERATOR documented as of this encounter Care Teams Gage Designer Relationship Specialty Start Date End Date Osiris Otero APRN, C.N.P., R.N. [address] [place] [phone] PCP - General Family Medicine 09/17/23 12/08/23 documented as of this encounter
--- OUTSIDE RECORDS SUMMARY | 2024-01-17 00:04 | XMS_ITS | Encounter Summary ---
Author Name Unknown Organization [facility] Address [address] [place] [address] Care Team Providers Care Dielectric Machine Operator Name Role Phone Shanna Osiris Doe APRN C.N.Tia., R.N. Primary Care Provider Encounter Details Date Type Department Care Team (Late st Contact Info) Description 11/28/2023 Clinical Communication Senior Services in [place] [address] [place] [phone] Haven Saxena, R.N. Social History Tobacco Use Types Packs/Day Years Used Date Smoking Tobacco: Never Smokeless Tobacco: Never Alcohol Use Standard Drinks/Week Comments Defer 0 (1 standard drink = 0.6 oz pur e alcohol) [facility] Utilities Answer Date Recorded In the past 12 months has [facility] [employer], gas, oil, or water [employer] threatened to shut off services in your [...] your living situation today? I have a [facility] place to live 10/19/2023 Sex and Gender [...] Time COVID19 11/13/2023 11/13/2023 12/03/2023 5:55 AM OLERICULTURE PROFESSOR documented as of this encounter Care Teams Dielectric Machine Operator Relationship Specialty Start Date End Date Osiris Otero APRN, C.N.P., R.N. [address] [place] [phone] PCP - General Family Medicine 09/17/23 12/08/23 documented as of this encounter
--- OUTSIDE RECORDS SUMMARY | 2024-01-17 00:05 | XMS_ITS | Encounter Summary ---
Author Name Unknown Organization [facility] Address [address] [place] [address] Care Team Providers Care Tile Grinder Name Role Phone Osiris Otero APRN, C.N.P., R.N. Primary Care Provider Reason for Referral * Outpatient (Routine) - Authorized Specialty Diagnoses / Procedures Referred By Contfarideh t Referred To Contact Urology Diagnoses Neurogenic Bladder Osiris Otero APRN C.N.P., R.N. [address] [place] [phone] [facility] Region Referral ID Status Reason Start Date Expiration Date V isits Requested Visits Authorized [id number] Authorized 11/10/2023 05/11/2025 1 1 E MAKER Encounter Details Date Type Department Care Team (Late st Contact Info) Description 11/10/2023 Orders Only Senior Services in [place] [address] [place] [phone] Osiris Otero APRN, C.N.P., R.N. [address] [place] [phone] Neurogenic Bladder (Primary Dx) Social History Tobacco Use Types Packs/Day Years Used Date Smoking Tobacco: Never Smokeless Tobacco: Never Alcohol Use Standard Drinks/Week Comments Defer 0 (1 standard drink = 0.6 oz pur e alcohol) [facility] Utilities Answer Date Recorded [...] your living situation today? I have a [facility] place to live 10/19/2023 Sex [...] Primary documented in this encounter Care Teams Tile Grinder Relationship Specialty Start Date End Date Osiris Otero APRN, C.N.P., R.N. [address] [place] [phone] PCP - General Family Medicine 09/17/23 12/08/23 documented as of this encounter
--- OUTSIDE RECORDS SUMMARY | 2024-01-17 00:05 | XMS_ITS | Encounter Summary ---
Author Name Unknown Organization [facility] Address [address] [place] [address] Care Team Providers Care Hand Picker Name Role Phone Osiris Otero APRN, C.N.P., R.N. Primary Care Provider Encounter Details Date Type Department Care Team (Late st Contact Info) Description 11/26/2023 Documentation Senior Services in [place] [address] [place] [phone] Osiris Otero APRN, C.N.P., R.N. [address] [place] [phone] Social History Tobacco Use Types Packs/Day Years Used Date Smoking Tobacco: Never Smokeless Tobacco: Never Alcohol Use Standard Drinks/Week Comments Defer 0 (1 standard drink = 0.6 oz pur e alcohol) [facility] Utilities Answer Date Recorded In the past 12 months has [employer], gas, oil, or water [employer] threatened to shut off services in your [...] your living situation today? I have a [facility] place to live 10/19/2023 Sex and Gender Information Value Date Recorded Sex Assigned at Not on file Gender Identity Not on file Sexual Orientation Not on file documented as of this encounter Progress Notes * Sol Mills L.P.N. - 11/26/2023 12:25 PM CST Encounter created to enter external lab results. RITY MANAGER documented in this encounter Plan of Treatment Not on file documented as of this encounter Procedures Procedure Name Priority Date/Time Associated Diagnosis Comments EXTM HOME SARS CORONAVIRUS-2 (COVID-19) ANTIGEN, V Routine 11/13/2023 documented in this encounter Results * (ABNORMAL) EXT Home SARS Coronavirus-2 (COVID-19) Antigen (11/13/2023) EXT Home SARS-CoV-2 Antigen Presumptive Positive(A) Presumptive Negative OTHER (SPECIFY IN ROPER OPERATOR) Swab 11/13/2023 Historical Provider LAB MICROBIOLOGY - G ENERAL ORDERABLES OTHER (SPECIFY IN ROPER OPERATOR) N/A documented in this encounter Visit Diagnoses Not on filedocumented in this encounter Additional Health Concerns Infection Onset Date Last Indicated Resolved Time COVID19 11/13/2023 11/13/2023 12/03/2023 5:55 AM SECURITY MANAGER documented as of this encounter Care Teams Hand Picker Relationship Specialty Start Date End Date Osiris Otero APRN, C.N.P., R.N. [address] [place] [phone] PCP - General Family Medicine 09/17/23 12/08/23 documented as of this encounter
--- OUTSIDE RECORDS SUMMARY | 2024-01-17 00:05 | XMS_ITS | Encounter Summary ---
Author Name Unknown Organization [facility] Address [address] [place] [address] Care Team Providers Care Rfid Manager Name Role Phone Osiris Otero APRN C.N.P., R.N. Primary Care Provider Encounter Details Date Type Department Care Team (Latest Contact Info) Description 11/04/2023 12:13 AM FILLING HAULER - 11/04/2023 11:[address] [facility] Hospital Encounter Department of Laboratory Medicine in [place], [place] [address] [place] [phone] Osiris Otero APRN, C.N.P., R.N. [address] [place] [phone] Hypokalemia Discharge Disposition: Home or Self Care Social History Tobacco Use Types Packs/Day Years Used Date Smoking Tobacco: Never Smokeless Tobacco: Never Alcohol Use Standard Drinks/Week Comments Defer 0 (1 standard drink = 0.6 oz pur e alcohol) [facility] Utilities Answer Date Recorded In the past 12 months has [employer] electric, gas, oil, or water company threatened [...] living situation today? I have a [facility] place to live 10/19/2023 Sex and Gender [...] METABOLIC PANEL, S/P Routine 11/04/2023 6:52 AM FILLING HAULER Hypokalemia documented in this encounter Results * (ABNORMAL) Basic Metabolic Panel (11/04/2023 6:52 AM FILLING HAULER) Potassium, P 4.1 3.6 - 5.2 mmol/L 11/04/2023 8:14 AM FILLING HAULER NPRG Sodium, P 142 135 - 145 mmol/L 11/04/2023 8:14 AM FILLING HAULER NPRG Chloride, P 102 98 - 107 mmol/L 11/04/2023 8:14 AM FILLING HAULER NPRG Bicarbonate, P 30(H) 22 - 29 mmol/L 11/04/2023 8:14 AM FILLING HAULER NPRG Anion Gap, P 10 7 - 15 11/04/2023 8:14 AM FILLING HAULER NPRG BUN (Blood Urea Nitrogen), P 21 6 - 21 mg/dL 11/04/2023 8:14 AM FILLING HAULER NPRG Creatinine 0.28(L) 0.59 - 1.04 mg/dL 11/04/2023 8:14 AM FILLING HAULER NPRG Estimated GFR (eGFR) >90 >=60 mL/min/BSA 11/04/2023 8:14 AM FILLING HAULER NPRG Comment: Estimated GFR calculated using the 2020 CKD_EPI creatinine equation. Calcium, Total, P 9.1 8.8 - 10.2 mg/dL 11/04/2023 8:14 AM FILLING HAULER NPRG Glucose, P 79 70 - 140 mg/dL 11/04/2023 8:14 AM FILLING HAULER NPRG Blood (Blood, Venous) 11/04/2023 6:52 AM FILLING HAULER 11/04/2023 7:43 AM FILLING HAULER Elizabeth Wright APRNNBuck, R.NRoberto LAB B LOOD ADD-ON [facility] [address] [place] [address], [facility] NPRG [facility] [address] [place] [address] documented in this encounter Visit Diagnoses Diagnosis Hypokalemia documented in this encounter Care Teams Rfid Manager Relationship Specialty Start Date End Date Osiris Otero APRN, C.N.Tia., R.N. [address] [place] [phone] PCP - General Family Medicine 09/17/23 12/08/23 documented as of this encounter
--- OUTSIDE RECORDS SUMMARY | 2024-01-17 00:05 | XMS_ITS | Encounter Summary ---
Author Name Unknown Organization [facility] Address [address] [place] [address] Care Team Providers Care Injection Molder Name Role Phone Osiris Otero APRN, C.N.P., R.N. Primary Care Provider Encounter Details Date Type Department Care Team (Latest Contact Info) Description 11/28/2023 4:00 PM HAT BAND ATTACHER External Outreach Senior Services in [place] [address] [place] [phone] Osiris Otero APRN C.N.P., R.N. [address] [place] [phone] Chronic Diastolic (Congestive) Heart Failure (HCC) (Primary [...] drink = 0.6 oz pur e alcohol) [facility] Utilities Answer Date Recorded In the past 12 months has [employer], gas, oil, or water [employer] threatened to shut off services in your [...] your living situation today? I have a [facility] place to live 10/19/2023 Sex and Gender Information Value Date Recorded Sex Assigned at Not on file Gender Identity Not on file Sexual Orientation Not on file documented as of this encounter Last Filed Vital Signs Vital Sign Reading Time Taken Comments Blood Pressure 110/68 11/28/2023 8:43 AM HAT BAND ATTACHER Pulse 76 11/28/2023 8:43 AM HAT BAND ATTACHER Temperature 36.7 ??C (98 ??F) 11/28/2023 8:43 AM HAT BAND ATTACHER Respiratory Rate 18 11/28/2023 8:43 AM HAT BAND ATTACHER Oxygen Saturation 95% 11/28/2023 8:43 AM HAT BAND ATTACHER RA Inhaled Oxygen Concentration - - Weight 58.8 kg (129 lb 9.6 oz) 11/28/2023 8:43 A M HAT BAND ATTACHER Height - - Body Mass Index 25.44 10/19/2023 5:00 AM HAT BAND ATTACHER documented in this encounter Progress Notes * Osiris Otero APRN, C.N.P., R.N. - 11/28/2023 4:00 PM CST CHIEF COMPLAINT / REASON FOR VISIT The resident is being seen at [place], [place] for Discharge H&P Visit Type: In Person Face-to- Face visit SUBJECTIVE HISTORY OF PRESENT ILLNESS Obtained from Patient, Nursing, and SBAR: SNF VISIT for Post Hospital Follow up Visit This resident was recently hospitalized at: [facility] Date of hospitalization: DATE OF ADMISSION: 10/19/2023 DATE OF DISCHARGE: 10/22/2023 Reason for hospitalization: Acute Respiratory Failure With Hypoxia Prior to hospitalization patient did receive levofloxacin for 5 days. On 10/18/2023 she developed fever, cough, shortness of breath hypoxia. She was transferred to [facility]. Her MRSA swab returned positive, Infectious Disease [...] off her oxygen. She discharged back to snf facility. She did have intermittent episodes of hypoxia where she would go down to 82% especially if on her left side. She would rebound back to 95% in about 15-30 seconds. Patient was previously hospitalized at [facility] [place] [facility] from 08/28/2023 through 09/17/2023, she has [...] obstructive sleep apnea. She is followed by [facility] wound care provider. Patient tested positive for COVID on 11/13/23. She said she had a day where she was very sleepy and acouple of days where she did not have much of an appetite. She did not receive any COVID therapies. Patient currently has wound VAC in place and will need to have this changed 3 times a week. She follows with the [facility]. She has a hospital bed at home with an air mattress. She alsohas a Dustin lift at home. She was previously living at home with family. Patient will discharge with home physical, occupational, speech and nursing and nursing assistants teacher. I personally reviewed the most recent following [...] home health nursing and follow up with [facility]. Multivitamin, zinc. Oxycodone to 7.5 mg four times per day as needed for pain.Unsure of discharge date, will send #45 tablets of oxycodone to [facility] in [place] once discharge date is set. #2 Chronic Diastolic (Congestive) Heart Failure (HCC) Furosemide, metoprolol last echocardiogram was January 2023 with EF greater than 75% #4 Obstructive Sleep Apnea Goal is 88-90%, requires BiPAP when sleeping, BIPAP at night and when napping. 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 Will discontinue Tessalon Perles and decrease potassium [...] other IDT members. Total time 60 minutes. BAND ATTACHER documented in this encounter Plan of Treatment [...] Time COVID19 11/13/2023 11/13/2023 12/03/2023 5:55 AM HAT BAND ATTACHER documented as of this encounter Care Teams Injection Molder Relationship Specialty Start Date End Date Osiris Otero APRN, C.N.P., R.N. [address] [place] [phone] PCP - General Family Medicine 09/17/23 12/08/23 documented as of this encounter
--- OUTSIDE RECORDS SUMMARY | 2024-01-17 00:05 | XMS_ITS | Encounter Summary ---
Author Name Unknown Organization [facility] Address [address] [place] [address] Care Team Providers Care Research Attorney Name Role Phone Osiris Otero APRN, C.N.PRoberto, R.N. Primary Care Provider Reason for Referral * Outpatient (Routine) - Authorized Specialty Diagnoses / Procedures Referred By Paresh palomino Referred To Contact Pulmonary Medicine Diagnoses Orthopnea Osiris Otero APRN, C.N.P., R.N. [address] [place] [phone] [facility] Referral ID Status Reason Start Date Expiration Date Visits Requested Visits Authorized [id number] Authorized Specialty Services Required 10/31/2023 05/01/2025 1 1 AWAY ATTENDANT Encounter Details Date Type Department Care Team (Latest Contact Info) Description 10/31/2023 10:00 AM TAKE AWAY ATTENDANT External Outreach [facility] [place] [address] [place] [address] Osiris Otero APRN, C.N.P., R.N. [address] [place] [address] [phone] Orthopnea (Primary Dx); Pressure Injury (Ulcer) Of [...] Resonance Disorder; Obstructive Sleep Apnea Adult; Paraplegia ([facility]) Social History Tobacco Use Types Packs/Day Years Used Date Smoking Tobacco: Never Smokeless Tobacco: Never Tobacco Cessation:Counseling Given: Not Answered Alcohol Use Standard Drinks/Week Comments Defer 0 (1 standard drink = 0.6 oz pur e alcohol) [facility] Utilities Answer Date Recorded In the past 12 months has e [employer], gas, oil, or water [employer] threatened to shut off services in your [...] your living situation today? I have a [facility] place to live 10/19/2023 Sex and Gender Information Value Date Recorded Sex Assigned at Not on file Gender Identity Not on file Sexual Orientation Not on file documented as of this encounter Last Filed Vital Signs Vital Sign Reading Time Taken Comments Blood Pressure 110/62 10/31/2023 9:01 AM TAKE AWAY ATTENDANT Pulse 98 10/31/2023 9:01 AM TAKE AWAY ATTENDANT Temperature 36.3 ??C (97.4 ??F) 10/31/2023 9:01 AM CS T Respiratory Rate 18 10/31/2023 9:01 AM TAKE AWAY ATTENDANT Oxygen Saturation 95% 10/31/2023 9:01 AM TAKE AWAY ATTENDANT Inhaled Oxygen Concentration - - Weight 61.2 kg (135 lb) 10/31/2023 9:01 AM TAKE AWAY ATTENDANT Height - - Body Mass Index 26.5 10/19/2023 5:00 AM TAKE AWAY ATTENDANT documented in this encounter Progress Notes * Sol Mills L.P.N. - 10/31/2023 10:00 AM CST SNF VISIT for Post Hospital Follow up Visit This resident was recently hospitalized at: Health system Date of hospitalization: DATE OF ADMISSION: 10/19/2023 [...] wound. Wounds/L/D/A: None SNF Nurse concerns: unknown AWAY ATTENDANT * Osiris Otero APRN, ElizabethN.P., R.N. - 10/31/2023 10:00 AM CST CHIEF COMPLAINT / REASON FOR VISIT The resident is being seen at [place], [place] for Post hospitalization Follow up Visit Type: In Person Face-to- Face visit SUBJECTIVE HISTORY OF PRESENT ILLNESS Obtained from Patient, Nursing, and SBAR: SNF VISIT for Post Hospital Follow up Visit This resident was recently hospitalized at: Health system Date of hospitalization: DATE OF ADMISSION: 10/19/2023 DATE OF DISCHARGE: 10/22/2023 Reason for hospitalization: Acute Respiratory Failure With Hypoxia Prior to hospitalization patient did receive levofloxacin for 5 days. On 10/18/2023 she developed fever, cough, shortness of breath hypoxia. She was transferred to [place]. Her MRSA swab returned positive, Infectious Disease [...] off her oxygen. She discharged back to senior living facility. She did have intermittent episodes of hypoxia where she would go down to 82% especially if on her left side. She would rebound back to 95% in about 15-30 seconds. Patient was previously hospitalized at [facility] from 08/28/2023 through 09/17/2023, she has [...] obstructive [facility]. [facility]. [facility] [...] Injury (Ulcer) Of Sacral Region Stage 2 ([facility]) 17. Obstructive Sleep Apnea Adult 19. 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 Takes gabapentin three times per day #6 Anemia CBC next week #7 Arthritis Rheumatoid ([facility]) Prednisone 10 mg daily (was stress dosed and is back to 10 mg daily) #8 Atrial Fibrillation Unspecified ([facility]) History of, not on anticoagulation, does take metoprolol #9 Diarrhea Scheduled loperamide and has daily probiotic #10 Edema Localized Furosemide 40 mg daily and potassium 20 mEq three times a day ([facility] on 11/04) #11 Hypertension Essential Primary Metoprolol (discharged on tartrate and succinate). 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 Total time 40 minutes. AWAY ATTENDANT documented in this encounter Miscellaneous Notes * Addendum Note - Hermes Edouard R.N. - 10/31/2023 10:00 AM CSTAddended by: HERMES EDOUARD on: 11/05/2023 12:30 PM Modules accepted: Orders AWAY ATTENDANT documented in this encounter Plan of Treatment [...] (HCC) documented in this encounter Care Teams Research Attorney Relationship Specialty Start Date End Date Osiris Otero APRN, C.N.P., R.N. [address] [place] [phone] PCP - General Family Medicine 09/17/23 12/08/23 documented as of this encounter
--- OUTSIDE RECORDS SUMMARY | 2024-01-17 00:05 | XMS_ITS | Encounter Summary ---
Author Name Unknown Organization [facility] Address [address] [place] [address] Care Team Providers Care Tow Operator Name Role Phone Osiris Otero APRN, C.N.P., R.N. Primary Care Provider Encounter Details Date Type Department Care Team (Late st Contact Info) Description 11/25/2023 Clinical Communication [facility] [place] [address] [place] [phone] Osiris Otero APRN, C.N.P., R.N. [address] [place] [phone] Social History Tobacco Use Types Packs/Day Years Used Date Smoking Tobacco: Never Smokeless Tobacco: Never Alcohol Use Standard Drinks/Week Comments Defer 0 (1 standard drink = 0.6 oz pur e alcohol) [facility] Utilities Answer Date Recorded In the past 12 months has [employer], gas, oil, or water [facility] threatened to shut off services in [...] living situation today? I have a [facility] place to live 10/19/2023 Sex and Gender [...] tablet Refill: 0 Please send half tablets. BROKER documented in this encounter Plan of Treatment Not on file documented as of this encounter Visit Diagnoses Not on filedocumented in this encounter Care Teams Tow Operator Relationship Specialty Start Date End Date Osiris Otero APRN, C.N.P., R.N. [address] [place] [phone] PCP - General Family Medicine 09/17/23 12/08/23 documented as of this encounter
--- OUTSIDE RECORDS SUMMARY | 2024-01-17 00:06 | XMS_ITS | Encounter Summary ---
Author Name Unknown Organization [facility] Address [address] [place] [address] Care Team Providers Care Medical Radiation Dosimetrist Name Role Phone ShannaFransisca lopezOsirisMars Islas APRN.NJuan., R.N. Primary Care Provider Reason for Visit * Auth/Cert (Routine) Specialty Diagnoses / Procedures Referred By Contac t Referred To Contact Diagnoses Pneumonia pnuemoinia Procedures IP Referral ID Status Reason Start Date Expiration Date Visits Re quested Visits Authorized [id number] 1 1 Encounter Details Date Type Department Care Team (Latest Contact Info) Description 10/19/2023 2:09 AM WOOD MILLER - 10/27/2023 2:06 PM WOOD MILLER Hospital Encounter [facility], Second Floor [address] [place] [id number] Pancho Burr M.D. [address] [place] [phone] Williams Barber M.D. [address] [place] [address] Nicole Kaiser M.D. [facility] [place] [address] Camden Munoz M.D. 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 I have a [facility] place to live 10/19/2023 Sex and Gender Information Value Date Recorded Sex Assigned at Not on file Gender Identity Not on file Sexual Orientation Not on file documented as of this encounter Last Filed Vital Signs Vital Sign [place] Time Taken Comments Blood Pressure 142/70 10/27/2023 6:52 AM WOOD MILLER Pulse 86 10/27/2023 6:52 AM WOOD MILLER Temperature 36.3 ??C (97.3 ??F) 10/27/2023 6:52 AM CS T Respiratory Rate 16 10/27/2023 6:52 AM WOOD MILLER Oxygen Saturation 98% 10/27/2023 6:52 AM WOOD MILLER Inhaled Oxygen Concentration - - Weight 61 kg (134 lb 7.7 oz) 10/27/2023 5:22 AM WOOD MILLER Height 152 cm (4' 11.84) 10/19/2023 5:00 AM WOOD MILLER Body Mass Index 26.4 10/19/2023 5:00 AM WOOD MILLER documented in this encounter Discharge Summaries * Camden Munoz M.D. - 10/27/2023 11:50 AM CST DATE OF ADMISSION: 10/19/2023 DATE OF DISCHARGE: 10/22/2023 ADMITTING PHYSICIAN: Pancho Burr M.D. DISCHARGING PHYSICIAN: Camden Munoz M.D. PRIMARY CARE PHYSICIAN: Osiris Otero APRN, C.N.P., R.N. [address] [facility] [id number] PRINCIPAL DIAGNOSIS: Acute Respiratory Failure With Hypoxia (HCC) SECONDARY DIAGNOSES: #1 Chronic Diastolic (Congestive) Heart Failure (HCC) #2 Unspecified Open Wound Right Buttock Initial #3 Other Adrenocortical Insufficiency (HCC) #4 Neurogenic Bladder #5 Arthritis Rheumatoid (HCC) #6 Hypertension Essential Primary #7 Corticosteroid Treatment Chcf Systemic #8 Paraplegia (HCC) #9 Acute Respiratory Failure With Hypoxia (HCC) #10 Abnormal Urinalysis #11 Fever Of Unknown Origin #12 Pneumonitis Due To Inhalation Of Food And Vomit (HCC) #13 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 ([facility]) #14 Obstructive Sleep Apnea Adult #15 Infection [...] debridement of a perirectal abscess at the [facility] then discharged to a prison in [place]. She reported that she spent about a month there and then developed a respiratory infection which was treated with 5 days of levofloxacin. The patient presented to the emergency room shortly after completing her levofloxacin course, on 10/18/23, with fevers, cough, shortness breath and hypoxia. With no room locally for the patient she was transferred to [facility] for acute management. At our facility the [...] At the recommendations of our Infectious Disease marketing consultant, the patient was converted to oral [...] treatment orders at the patient's SNF in [place] were adequate. No changes other than the [...] to discharge the patient back to her half-way facility on 10/23/23. Unfortunately, though her half-way facility received regular updates on the plan [...] spent on counseling and coordination of care. MILLER documented in this encounter Discharge Instructions * Attachments The following attachments cannot be sent through Care Everywhere. * Pressure Relief Maneuvers (Pashto) * Chronic Pain Cycles (Pashto) documented in this encounter Medications at Time [...] for discharge plans. Spoke with patient via [employer] during bedside team rounding. Social work received insurance authorization for patient to return to [facility]. Patient shares that her niece will [...] (HCC) Anemia Hypertension Essential Primary Corticosteroid Treatment Chcf Systemic Paraplegia (HCC) Voice And Resonance Disorder [...] formally assessed INTERVENTIONS Received insurance auth through Counts Include [facility] Beds At [facility] Coordinated patient's return with [facility] Destination - Admitted Since 10/19/2023 Service Provider Request Status Selected Services Address Phone Fax Patient Preferred [facility] ACO Selected Intermediate [address] [place] [address] [phone] -- PLAN Patient will return to [facility] today at 1pm. Niece will transport Amadou Blackmon 10/27/23 MILLER * Nicole Kaiser M.D. - 10/26/2023 10:38 [...] #6 Hypertension Essential Primary #7 Corticosteroid Treatment Chcf Systemic #8 Paraplegia (HCC) #9 Acute Respiratory Failure With Hypoxia (HCC) #10 Abnormal Urinalysis #11 Fever Of Unknown Origin #12 Pneumonitis Due To Inhalation Of Food And Vomit ([facility]) #13 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 ([facility]) #14 Obstructive Sleep Apnea Adult #15 Infection Urinary Catheter Indwelling Initial ([facility]) #16 Do Not Resuscitate Status #17 Pneumonia 77-year-old 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 This patient spent about 3 months in the [facility] for management and de bridement of a perirectal abscess, then discharge to a prison in [place] where she spent about a month before developing a respiratory infection treated with 5 days of levofloxacin. The patient presented to the emergency room shortly after completing her course, on 10/18/23, with fevers, cough, shortness breath and hypoxia. With no room locally for the patient she was transferred to [facility]. #1 Fever Of Unknown Origin #2 Acute Respiratory Failure With Hypoxia ([facility]) #3 Aspiration Pneumonia, Abnormal Urinalysis, Neurogenic Bladder, [...] Monitor for evidence of on-going aspiration. -recommend SSIS SSRS DEVELOPER evaluation again upon return to her half-way facility -- DuoNebs makes her jittery, so switched to Atrovent nebs. (reduced to 3 times daily secondary to PSVT) -- Appropriate cough management -- Fall/Aspiration precautions #4 Chronic Diastolic (Congestive) Heart Failure ([facility]) #5 Atrial Fibrillation Unspecified ([facility]) #6 Hypertension Essential Primary, Severe HUI -- Continue bedtime BiPAP therapy -- Per patient, considered resolved by [facility] PCP. Hence, no anticoagulation. Apparently, the metoprolol [...] Injury (Ulcer) Of Sacral Region Stage 2 ([facility]) #11 Paraplegia ([facility]) -- Continue recommended wound cares (including Wound Vac therapy) for the two Right buttock wounds,Left-sacral pressure ulcer, and Left heel stage 1 pressure ulcer. -- Q2H repositioning to offload areas at risk for pressure ulcers as appropriate. -- Appreciate assistance of PT wound staff. -- Monitor wounds and record photos in the chart as appropriate. -- Follow-up as recommended by [facility] providers. -noted that we do not have the calcium alginate that was being used to pack the patient's wound while she was at the [facility]. Will use Aquacel in its place. We do not have Vashe either, so using normal saline in its place for now #12 Other Adrenocortical Insufficiency ([facility]) #13 Arthritis Rheumatoid ([facility]) #14 Corticosteroid Treatment Lead Housekeeper Systemic -- Continue prednisone taper back down to chronic prednisone 10 mg daily - for stress steroids dosing given suspected pneumonia. Current dose is 40mg daily. Will be back on chronic 10mg dose on 10/28. -- Continue management of chronic medical issues. Diet: 2000 mg sodium cardiovascular diet Prophylaxis: SCDs only Code Status: DNR/DNI Dispo: Planning on 10/25 D/C back to [facility] Alessandra Villaseñor [facility] once final insurance authorization is received. Patient reports her niece can transport her, she has a wheelchair van. Electronically signed by: Nicole Kaiser M.D. 10/26/23 10:38 AM WOOD MILLER MILLER * Nicole Kaiser M.D. - 10/25/2023 9:26 [...] PLAN #1 Chronic Diastolic (Congestive) Heart Failure ([facility]) #2 Unspecified Open Wound Right Buttock Initial #3 Other Adrenocortical Insufficiency ([facility]) #4 Neurogenic Bladder #5 Arthritis Rheumatoid ([facility]) #6 Hypertension Essential Primary #7 Corticosteroid Treatment Lead Housekeeper Systemic #8 Paraplegia ([facility]) #9 Acute Respiratory Failure With Hypoxia ([facility]) #10 Abnormal Urinalysis #11 Fever Of Unknown Origin #12 Pneumonitis Due To Inhalation Of Food And Vomit ([facility]) #13 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 ([facility]) #14 Obstructive Sleep Apnea Adult #15 Infection Urinary Catheter Indwelling Initial ([facility]) #16 Do Not Resuscitate Status #17 Pneumonia 77-year-old 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 This patient spent about 3 months in the [facility] for management and de bridement of a perirectal abscess, then discharge to a prison in [place] where she spent about a month before developing a respiratory infection treated with 5 days of levofloxacin. The patient presented to the emergency room shortly after completing her course, on 10/18/23, with fevers, cough, shortness breath and hypoxia. With no room locally for the patient she was transferred to [facility]. #1 Fever Of Unknown Origin [...] Monitor for evidence of on-going aspiration. -recommend SSIS SSRS DEVELOPER evaluation again upon return to her half-way facility -- DuoNebs makes her jittery, so switched to Atrovent nebs. (reduced to 3 times daily secondary to PSVT) -- Appropriate cough management -- Fall/Aspiration precautions #4 Chronic Diastolic (Congestive) Heart Failure (HCC) #5 Atrial Fibrillation Unspecified (HCC) #6 Hypertension Essential Primary, Severe HUI -- Continue bedtime BiPAP therapy -- Per patient, considered resolved by [facility] PCP. Hence, no anticoagulation. Apparently, the metoprolol [...] as appropriate. -- Follow-up as recommended by [facility] providers. -noted that we do not have the calcium alginate that was being used to pack the patient's wound while she was at the SNF. Will use Aquacel in its place. We do not have Vashe either, so using normal saline in its place for now #12 Other Adrenocortical Insufficiency (HCC) #13 Arthritis Rheumatoid (HCC) #14 Corticosteroid Treatment Chcf Systemic -- Continue prednisone taper back down to chronic prednisone 10 mg daily - for stress steroids dosing given suspected pneumonia. Current dose is 40mg daily. Will be back on chronic 10mg dose on 10/28. -- Continue management of chronic medical issues. Diet: 2000 mg sodium cardiovascular diet Prophylaxis: SCDs only Code Status: DNR/DNI Dispo: 10/25 D/C back to [facility] Alessandra Kasi in [place]. Patient reports her niece can transport her, she has a wheelchair van. Electronically signed by: Nicole Kaiser M.D. 10/25/23 9:26 AM WOOD MILLER MILLER * Nicole Kaiser M.D. - 10/24/2023 10:43 [...] (HCC) #4 Neurogenic Bladder #5 Arthritis Rheumatoid ([facility]) #6 Hypertension Essential Primary #7 Corticosteroid Treatment Chcf Systemic #8 Paraplegia ([facility]) #9 Acute Respiratory Failure With Hypoxia ([facility]) #10 Abnormal Urinalysis #11 Fever Of Unknown Origin #12 Pneumonitis Due To Inhalation Of Food And Vomit ([facility]) #13 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 ([facility]) #14 Obstructive Sleep Apnea Adult #15 Infection Urinary Catheter Indwelling Initial ([facility]) #16 Do Not Resuscitate Status #17 Pneumonia 77-year-old 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 This patient spent about 3 months in the [facility] for management and de bridement of a perirectal abscess, then discharge to a prison in [place] where she spent about a month before developing a respiratory infection treated with 5 days of levofloxacin. The patient presented to the emergency room shortly after completing her course, on 10/18/23, with fevers, cough, shortness breath and hypoxia. With no room locally for the patient she was transferred to [facility]. #1 Fever Of Unknown Origin #2 Acute Respiratory Failure With Hypoxia ([facility]) #3 Aspiration Pneumonia, Abnormal Urinalysis, Neurogenic Bladder, [...] Monitor for evidence of on-going aspiration. -recommend SSIS SSRS DEVELOPER evaluation again upon return to her half-way facility -- DuoNebs makes her jittery, so switched to Atrovent nebs. (reduced to 3 times daily secondary to PSVT) -- Appropriate cough management -- Fall/Aspiration precautions #4 Chronic Diastolic (Congestive) Heart Failure (HCC) #5 Atrial Fibrillation Unspecified ([facility]) #6 Hypertension Essential Primary, Severe HUI -- Continue bedtime BiPAP therapy -- Per patient, considered resolved by [facility] PCP. Hence, no anticoagulation. Apparently, the metoprolol [...] Injury (Ulcer) Of Sacral Region Stage 2 ([facility]) #11 Paraplegia ([facility]) -- Continue recommended wound cares (including Wound Vac therapy) for the two Right buttock wounds,Left-sacral pressure ulcer, and Left heel stage 1 pressure ulcer. -- Q2H repositioning to offload areas at risk for pressure ulcers as appropriate. -- Appreciate assistance of PT wound staff. -- Monitor wounds and record photos in the chart as appropriate. -- Follow-up as recommended by [facility] providers. -noted that we do not have the calcium alginate that was being used to pack the patient's wound while she was at the SNF. Will use Aquacel in its place. We do not have Vashe either, so using normal saline in its place for now #12 Other Adrenocortical Insufficiency ([facility]) #13 Arthritis Rheumatoid (HCC) #14 Corticosteroid Treatment Lead Housekeeper Systemic -- Continue prednisone taper back down [...] for D/C back to [facility] in [place]. Patient reports her niece can transport her, she has a wheelchair van. However she lives about 1[place]1/2 hours away from here. Electronically signed by: Nicole Kaiser M.D. 10/24/23 10:57 AM WOOD MILLER MILLER * Mallika Peña L.I.C.S.WRoberto - 10/23/2023 4:28 PM CST SUBJECTIVE Social work following for discharge plans. Patient had been set to discharge back to [facility] today but was updated that she [...] (HCC) Anemia Hypertension Essential Primary Corticosteroid Treatment Lead Housekeeper Systemic Paraplegia (HCC) Voice And Resonance Disorder [...] not assessed PLAN Patient will return to [facility] pending insurance authorization Hernan BlackmonSRobertoWRoberto 10/23/23 MILLER * Williams Barber M.D. 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 This patient spent about 3 months in the [facility] for management and de bridement of a perirectal abscess, then discharge to a prison in [place] where she spent about a month before developing a respiratory infection treated with 5 days of levofloxacin. The patient presented to the emergency room shortly after completing her course, on 10/18/23, with fevers, cough, shortness breath and hypoxia. With no room locally for the patient she was transferred to [facility]. Interval History: Today the patient [...] Given, 40 mg at 10/22 616 pediatric ljeirsodxaci-etmk-phalnmpb chewable tablet 1 tablet ([facility]) 1 [...] PLAN #1 Chronic Diastolic (Congestive) Heart Failure ([facility]) #2 Unspecified Open Wound Right Buttock Initial #3 Other Adrenocortical Insufficiency ([facility]) #4 Neurogenic Bladder #5 Arthritis Rheumatoid ([facility]) #6 Hypertension Essential Primary #7 Corticosteroid Treatment Chcf Systemic #8 Paraplegia ([facility]) #9 Acute Respiratory Failure With Hypoxia ([facility]) #10 Abnormal Urinalysis #11 Fever Of Unknown Origin #12 Pneumonitis Due To Inhalation Of Food And Vomit ([facility]) #13 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 ([facility]) #14 Obstructive Sleep Apnea Adult #15 Infection Urinary Catheter Indwelling Initial ([facility]) #16 Do Not Resuscitate Status #17 Pneumonia #1 Fever Of Unknown Origin #2 Acute Respiratory Failure With Hypoxia ([facility]) #3 Aspiration Pneumonia, Abnormal Urinalysis, Neurogenic Bladder, [...] Monitor for evidence of on-going aspiration. -recommend SSIS SSRS DEVELOPER evaluation again upon return to her half-way facility -- DuStaceybs makes her jittery, so [...] therapy -- Per patient, considered resolved by [facility] PCP. Hence, no anticoagulation. Apparently, the metoprolol succinate is for hypertension. Review requested medical records from [facility] to confirm - when available. -- Monitor [...] as appropriate. -- Follow-up as recommended by [facility] providers. -noted that we do not have [...] #13 Arthritis Rheumatoid (HCC) #14 Corticosteroid Treatment Chcf Systemic -- Use prednisone taper back down [...] planning a discharge back to the patient's half-way facility with a tentative date of , 10/23/23. Appreciate our social work associate coordinating with the half-way facility. Unfortunately today our social work associate reports that the half-way facility neglected to submit paperwork and obtain approval from the patient's insurance to be readmitted today. Her half-way facility declines to take the patient back if they do not have approval from insurance. This unfortunately looks like it is going to delay the patient's discharge from our facility until tomorrow. MILLER * Elvi Anderson, Jacklyn., R.Ph. - 10/23/2023 [...] anticipated at discharge:TBD Elvi Anderson Pharm.D., R.Ph. MILLER * Cristino Pool, P.T. - 10/22/2023 10:42 AM CST Assessed patient's wounds with hospitalist and nursing staff. Current plan outlined by hospitalist is appropriate and will be carried out by nursing staff. No further need for physical therapy at this time. MILLER * Williams Barber M.D. 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 This patient spent about 3 months in the [facility] for management and de bridement of a perirectal abscess, then discharge to a prison in [place] where she spent about a month before developing a respiratory infection treated with 5 days of levofloxacin. The patient presented to the emergency room shortly after completing her course, on 10/18/23, with fevers, cough, shortness breath and hypoxia. With no room locally for the patient she was transferred [facility]. Interval History: today the patient [...] Given, 40 mg at 10/22 616 pediatric tjhafnkgjgnx-iqjt-jfacwhbo chewable tablet 1 tablet ([facility]) 1 [...] #6 Hypertension Essential Primary #7 Corticosteroid Treatment Chcf Systemic #8 Paraplegia (HCC) #9 Acute Respiratory [...] Origin #2 Acute Respiratory Failure With Hypoxia ([facility]) #3 Aspiration Pneumonia, Abnormal Urinalysis, Neurogenic Bladder, [...] Monitor for evidence of on-going aspiration. Appreciate SSIS SSRS DEVELOPER assistance with swallow studies -- DuoNebs makes her jittery, so switched to Atrovent nebs. (reduced to 3 times daily secondary to PSVT) -- Consider sputum testing. -- Appropriate cough management -- Fall/Aspiration precautions -- Appreciate the assistance of our rehab staff. #4 Chronic Diastolic (Congestive) Heart Failure (HCC) #5 Atrial Fibrillation Unspecified ([facility]) #6 Hypertension Essential Primary, Severe HUI -- Continue bedtime BiPAP therapy -- Per patient, considered resolved by [facility] PCP. Hence, no anticoagulation. Apparently, the metoprolol succinate is for hypertension. Review requested medical records from [facility] to confirm - when available. -- Monitor [...] as appropriate. -- Follow-up as recommended by [facility] providers. -noted that we do not have [...] #13 Arthritis Rheumatoid (HCC) #14 Corticosteroid Treatment Lead Housekeeper Systemic -- Use prednisone taper back down to chronic prednisone 10 mg daily - for stress steroids dosing given suspected pneumonia. Current dose is 40mg daily. Will be back on chronic 10mg dose on 10/28. -- Continue management of chronic medical issues. Diet: 2000 mg sodium cardiovascular diet Prophylaxis: SCDs only Code Status: DNR/DNI Dispo: Plan to discharge back to her half-way facility most likely morning MILLER * Williams Barber M.D. 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 This patient spent about 3 months in the [facility] for management and de bridement of a perirectal abscess, then discharge to a prison in [place] where she spent about a month before developing a respiratory infection treated with 5 days of levofloxacin. The patient presented to the emergency room shortly after completing her course, on 10/18/23, with fevers, cough, shortness breath and hypoxia. With no room locally for the patient [facility]. Interval History: Overnight the patient [...] Given, 40 mg at 10/21 626 pediatric eckujiysqfim-qpmo-tchoqjca chewable tablet 1 tablet (FLINTSTONES COMPLETE) 1 [...] PLAN #1 Chronic Diastolic (Congestive) Heart Failure ([facility]) #2 Unspecified Open Wound Right Buttock Initial #3 Other Adrenocortical Insufficiency ([facility]) #4 Neurogenic Bladder #5 Arthritis Rheumatoid ([facility]) #6 Hypertension Essential Primary #7 Corticosteroid Treatment Chcf Systemic #8 Paraplegia ([facility]) #9 Acute Respiratory Failure With Hypoxia ([facility]) #10 Abnormal Urinalysis #11 Fever Of Unknown Origin #12 Pneumonitis Due To Inhalation Of Food And Vomit ([facility]) #13 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 ([facility]) #14 Obstructive Sleep Apnea Adult #15 Infection Urinary Catheter Indwelling Initial ([facility]) #16 Do Not Resuscitate Status #17 Pneumonia #1 Fever Of Unknown Origin #2 Acute Respiratory Failure With Hypoxia ([facility]) #3 Aspiration Pneumonia, Abnormal Urinalysis, Neurogenic Bladder, [...] Monitor for evidence of on-going aspiration. Appreciate SSIS SSRS DEVELOPER assistance with swallow studies -- Fahad makes [...] therapy -- Per patient, considered resolved by [facility] PCP. Hence, no anticoagulation. Apparently, the metoprolol succinate is for hypertension. Review requested medical records from [facility] to confirm - when available. -- Monitor [...] as appropriate. -- Follow-up as recommended by [facility] providers. -noted that we do not have the calcium alginate that was being used to pack the patient's wound while she was at the SNF. Will use Aquacel in its place. #12 Other Adrenocortical Insufficiency (HCC) #13 Arthritis Rheumatoid (HCC) #14 Corticosteroid Treatment Chcf Systemic -- Use prednisone taper back down to chronic prednisone 10 mg daily - for stress steroids dosing given suspected pneumonia. Current dose is 40mg daily. Will be back on chronic 10mg dose on 10/28. -- Continue management of chronic medical issues. Diet: 2000 mg sodium cardiovascular diet Prophylaxis: SCDs only Code Status: DNR/DNI Dispo: Plan to discharge back to her half-way facility most likely morning MILLER * Williams Barber M.D. 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 This patient spent about 3 months in the [facility] for management and de bridement of a perirectal abscess, then discharge to a prison in [place] where she spent about a month before developing a respiratory infection treated with 5 days of levofloxacin. The patient presented to the emergency room shortly after completing her course, on 10/18/23, with fevers, cough, shortness breath and hypoxia. With no room locally for the patient she was [facility]. Interval History: This patient with [...] Given, 40 mg at 10/20 603 pediatric pggtaemtjmzi-xcbb-jniphkpc chewable tablet 1 tablet ([facility]ONES COMPLETE) 1 [...] #6 Hypertension Essential Primary #7 Corticosteroid Treatment Chcf Systemic #8 Paraplegia (HCC) #9 Acute Respiratory Failure With Hypoxia ([facility]) #10 Abnormal Urinalysis #11 Fever Of Unknown Origin #12 Pneumonitis Due To Inhalation Of Food And Vomit (HCC) #13 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 ([facility]) #14 Obstructive Sleep Apnea Adult #15 Infection [...] Monitor for evidence of on-going aspiration. Appreciate SSIS SSRS DEVELOPER assistance with swallow studies -- Fahad makes her jittery, so switched to Atrovent nebs. -- Consider sputum testing. -- Appropriate cough management -- Fall/Aspiration precautions -- Appreciate the assistance of our rehab staff. #4 Chronic Diastolic (Congestive) Heart Failure (HCC) #5 Atrial Fibrillation Unspecified (HCC) #6 Hypertension Essential Primary, Severe HUI -- Continue bedtime BiPAP therapy -- Per patient, considered resolved by [facility] PCP. Hence, no anticoagulation. Apparently, the metoprolol succinate is for hypertension. Review requested medical records from [facility] to confirm - when available. -- Monitor [...] as appropriate. -- Follow-up as recommended by [facility] providers. -noted that we do not have the calcium alginate that was being used to back the patient's wound. Will use Aquacel in its place. #12 Other Adrenocortical Insufficiency (HCC) #13 Arthritis Rheumatoid ([facility]) #14 Corticosteroid Treatment Lead Housekeeper Systemic -- Use prednisone taper back down [...] Dispo: Plan to discharge back to her half-way facility most likely morning MILLER * Elvi Anderson, Celestino.D., R.Ph. - 10/20/2023 [...] anticipated at discharge:TBD Elvi Anderson Pharm.D., R.Ph. MILLER documented in this encounter H&P Notes * Pancho Burr M.D. - 10/19/2023 7:24 AM CST SUBJECTIVE CHIEF COMPLAINT Patient is a 77 y.o. female who presents with fevers, cough, and shortness of breath and diagnosed with pneumonia. 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 Of note, a couple of days prior to this presentation completed5 day course of levofloxacin for cough and possible pneumonia. On 10/18/2023, she presented to the [facility] with fevers, cough, shortness of breath,hypoxia to [...] bed availability, she was transferred to the [facility] for further management. On the floor, she passed bedside swallow evaluation - and diet was advanced from NPO to regular diet - with aspiration precautions. SSIS SSRS DEVELOPER referral was also made. Cefepime was switched to ceftriaxone and doxycycline was continued. MRSA nasal swab PCR returned positive. Since she feels improved withoutMRSA coverage, Infectious disease eConsult requested. Per patient, Afib was considered resolved by [facility] PCP. Hence, no anticoagulation. Apparently, the metoprolol succinate is for hypertension.Review requested medical records from [facility] to confirm - when available. 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) Chronic Diastolic (Congestive) Heart Failure (HCC) Abscess Perirectal Pain Low Back Chronic Other Adrenocortical Insufficiency (HCC) Other Acidosis Osteoporosis Neurogenic Bladder Edema Localized Diarrhea Benign Neoplasm Colon Atrial Fibrillation Unspecified (HCC) Arthritis Rheumatoid (HCC) Anemia Hypertension Essential Primary Corticosteroid Treatment Chcf Systemic Paraplegia (HCC) Voice And Resonance Disorder [...] Noted about 2 Right buttock wounds (the Zcoar-kagv-mdqfov wound is wet-drypacked and the mid-Right buttock [...] QI(U) Negative Bilirubin Negative pH 5.0 Specific [place] 1.015 Urobilinogen 0.2 White Blood Cells >100 [...] Monitor for evidence of on-going aspiration. Appreciate SSIS SSRS DEVELOPER assistance with swallow studies -- DuoNebs makes her jittery, so switched to atrovent nebs. -- Consider sputum testing. -- Appropriate cough management -- Fall/Aspiration precautions -- Appreciate the assistance of our rehab staff. #4 Chronic Diastolic (Congestive) Heart Failure (HCC) #5 Atrial Fibrillation Unspecified (HCC) #6 Hypertension Essential Primary, Severe HUI -- Continue bedtime BiPAP therapy -- Per patient, considered resolved by [facility] PCP. Hence, no anticoagulation. Apparently, the metoprolol succinate is for hypertension. Review requested medical records from [facility] to confirm - when available. -- Monitor [...] as appropriate. -- Follow-up as recommended by [facility] providers. #12 Other Adrenocortical Insufficiency (HCC) #13 Arthritis Rheumatoid (HCC) #14 Corticosteroid Treatment Lead Housekeeper Systemic -- Use prednisone taper back down [...] two in-patient midnight stays will be needed. MILLER documented in this encounter Consult Notes * [...] Nutrition Monitoring/Evaluation Monitoring: Meals/Supplement Intake, Wound Healing MILLER * Mallika Peña L.I.C.SAnand - 10/20/2023 2:03 PM CST SUBJECTIVE Social work consulted for discharge planning. Social work met with patient via [employer] during bedside team rounding and followed up after via phone. Patient has been in short-term rehab at [facility] in [place] for wound cares. Prior to that, she was living at home with her daughter and had home health care services through [facility]. Patient anticipates returning to [facility] upon discharge. Social work reviewed transportation options and discussed out of pocket costs. 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) Chronic Diastolic (Congestive) Heart Failure ([facility]) Unspecified Open Wound Right Buttock Initial Pain Low Back Chronic Other Adrenocortical Insufficiency (HCC) Other Acidosis Osteoporosis Neurogenic Bladder Edema Localized Diarrhea Benign Neoplasm Colon Arthritis Rheumatoid ([facility]) Anemia Hypertension Essential Primary Corticosteroid Treatment Chcf Systemic Paraplegia ([facility]) Voice And Resonance Disorder Acute Respiratory Failure With Hypoxia ([facility]) Abnormal Urinalysis Fever Of Unknown Origin Pneumonitis Due To Inhalation Of Food And Vomit ([facility]) 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 ([facility]) Obstructive Sleep Apnea Adult Infection Urinary Catheter Indwelling Initial ([facility]) Do Not Resuscitate Status Pneumonia ASSESSMENT / [...] hold PLAN Anticipate patient will return to [facility] on 10/23/23 Hernan BlackmonS.W. 10/20/23 MILLER * Bruno Crow M.D., Ph.D. - 10/20/2023 [...] #6 Hypertension Essential Primary #7 Corticosteroid Treatment Chcf Systemic #8 Paraplegia ([facility]) #9 Acute Respiratory Failure With Hypoxia ([facility]) #10 Abnormal Urinalysis #11 Fever Of Unknown Origin #12 Pneumonitis Due To Inhalation Of Food And Vomit ([facility]) #13 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 ([facility]) #14 Obstructive Sleep Apnea Adult #15 Infection Urinary Catheter Indwelling Initial ([facility]) #16 Do Not Resuscitate Status #17 Pneumonia [...] will sign off Bruno Crow M.D., Ph.D. MILLER documented in this encounter Nursing Notes * [...] 10/19/2023 Discharge Date: 10/27/2023 10/28/2023 DISCHARGE DISPOSITION Intermediate Facility CONDITION AT DISCHARGE stable TREATMENTS BiPAP and wound cares DEVICES/EQUIPMENT BiPAP unit Pts own unit [employer] Nursing MODE OF DISCHARGE Wheelchair TRANSPORTATION Private Vehicle ACCOMPANIED BY Family: Niece All belongings sent home with patient. MILLER * Catarina Downs R.N. - 10/27/2023 4:03 [...] back to SNF today pending insurance approval. MILLER * Romina Corcoran R.N. - 10/26/2023 3:50 [...] met at this time, nursing care continues. MILLER * Zoie Butler R.N. - 10/26/2023 4:19 [...] patent. Pain controlled with oxycodone. Vitals stable. MILLER * Romina Corcoran R.N. - 10/25/2023 6:08 [...] met at this time, nursing care continues. MILLER * Catarina Downs R.N. - 10/25/2023 6:00 [...] ordered. Patient plans to discharge back to [facility] pending insurance approval. MILLER * Romina Corcoran R.N. - 10/24/2023 5:00 PM CST Shift Goals: Identify possible barriers to meeting goals/advancing plan of care: wound care End of Shift Summary: pt A&Ox3, vitally stable. Pt c/o 7/10 pain in her wound and down her leg,managed with oxycodone. No falls or injuries. Call light appropriate. All needs met at this time, nursing care continues. MILLER * Catarina Downs R.N. - 10/24/2023 6:35 [...] Patient plans to discharge pending transportation approval. MILLER * Catarina Downs R.N. - 10/24/2023 5:16 AM CST 10/24/23 0100 10/24/23 0300 Vital Signs SpO2 94 % 95 % Nocturnal O2 study completed. No additional oxygen needs while wearing BiPAP. MILLER * Margaret Ling R.N. - 10/23/2023 11:36 [...] completed for 5 min. No oxygen needed. MILLER * Harriet Fitzpatrick RRobertoNRoberto - 10/23/2023 5:10 [...] met at this time, nursing cares continued. MILLER * Harriet Fitzpatrick R.N. - 10/23/2023 4:20 AM CST 10/23/23 0410 Oxygen Therapy SpO2 96 % Pulse Oximetry Type Continuous $Delivery Method CPAP Flow Rate (L/min) 0 L/min Nocturnal Oxygen Assessment (NSG) Asleep Room Air SpO2 96 Percent (Pt wearing CPAP no O2 bleed) Patient is wearing CPAP with no O2 bleed. Patient was monitored for at least 2 hours. MILLER * Ba Marsh R.N. - 10/22/2023 4:45 [...] Continuous oxygen and cardiac monitoring in place. MILLER * Ana Agosto R.N. - 10/22/2023 3:25 PM CST 10/22/23 1500 Home Oxygen Assessment Rest/Awake Room Air SpO2 87 Percent Rest/Awake with Oxygen SpO2 92 (1L NC) Exercise/Activity Room Air SpO2 (Patient unable to walk) Exercise/Activity with Oxygen SpO2 (Patient unable to walk) Patient monitored continuously for at least 5 minutes MILLER * Vivi Foote R.N. - 10/22/2023 4:18 [...] dose of prn oxycodone at bedtime. VSS MILLER * Anais Gibbs RCarleen - 10/21/2023 3:53 [...] and optimal respiratory function Anais Gibbs R.N. MILLER * Vivi Foote R.N. - 10/21/2023 4:50 [...] was started at 0.5 and increased to 2L/bois forte maintain her oxygen level. Lungs sounds are diminished with fine crackles and no cough present this shift. MILLER * Adelso Schneider R.N. - 10/20/2023 5:39 [...] Planned discharge on Friday or back to [facility]. MILLER * Ba Marsh R.N. - 10/19/2023 6:52 [...] met at this time, nursing cares continue. MILLER documented in this encounter Miscellaneous Notes * Hospital Course - Nicole Kaiser M.D. 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 This patient underwent debridement of a perirectal abscess at the [facility] then discharged to a prison in [place]. She reported that she spent about a month there and then developed a respiratory infection which was treated with 5 days of levofloxacin. The patient presented to the emergency room shortly after completing her levofloxacin course, on 10/18/23, with fevers, cough, shortness breath and hypoxia. With no room locally for the patient she was transferred to [facility] for acute management. At our facility the [...] At the recommendations of our Infectious Disease marketing consultant, the patient was converted to oral [...] treatment orders at the patient's SNF in [place] were adequate. No changes other than the [...] to discharge the patient back to her half-way facility on 10/23/23. Unfortunately, though her half-way facility received regular updates on the plan [...] continue, would suggest further evaluation with pulmonology. MILLER documented in this encounter Plan of Treatment Not on file documented as of this encounter Procedures Procedure Name Priority Date/Time Associated Diagnosis Comments DX CHEST PORTABLE 1 VIEW RAD - Routine (most inpatients and all outpatients) 10/27/2023 10:24 AM WOOD MILLER URINALYSIS WITH MICROSCOPIC Routine 10/27/2023 10:15 AM WOOD MILLER MORPHOLOGY EVALUATION Routine 10/27/2023 6:48 AM WOOD MILLER CBC WITH DIFFERENTIAL, B Routine 10/27/2023 6:48 AM WOOD MILLER BASIC METABOLIC PANEL, S/P Routine 10/27/2023 6:48 AM WOOD MILLER DX CHEST PORTABLE 1 VIEW RAD - Semiurgent (Fast; most ED patients; some inpatients) 10/22/2023 10:53 AM WOOD MILLER MORPHOLOGY EVALUATION Routine 10/22/2023 6:19 AM WOOD MILLER CBC WITH DIFFERENTIAL, B Routine 10/22/2023 6:19 AM WOOD MILLER C-REACTIVE PROTEIN (CRP), S/P Routine 10/22/2023 6:19 AM WOOD MILLER MORPHOLOGY EVALUATION Routine 10/21/2023 6:32 AM WOOD MILLER CBC WITH DIFFERENTIAL, B Routine 10/21/2023 6:32 AM WOOD MILLER BASIC METABOLIC PANEL, S/P Routine 10/21/2023 6:32 AM WOOD MILLER MORPHOLOGY EVALUATION Routine 10/20/2023 6:08 AM WOOD MILLER CBC WITH DIFFERENTIAL, B Routine 10/20/2023 6:08 AM WOOD MILLER C-REACTIVE PROTEIN (CRP), S/P Routine 10/20/2023 6:08 AM WOOD MILLER BASIC METABOLIC PANEL, S/P Routine 10/20/2023 6:08 AM WOOD MILLER MORPHOLOGY EVALUATION Routine 10/19/2023 4:27 AM WOOD MILLER HEPATIC FUNCTION PANEL, S Routine 10/19/2023 4:27 AM WOOD MILLER D-DIMER, P Routine 10/19/2023 4:27 AM WOOD MILLER CBC WITH DIFFERENTIAL, B Routine 10/19/2023 4:27 AM WOOD MILLER C-REACTIVE PROTEIN (CRP), S/P Routine 10/19/2023 4:27 AM WOOD MILLER BASIC METABOLIC PANEL, S/P Routine 10/19/2023 4:27 AM WOOD MILLER NASAL SCREEN FOR MRSA BY RAPID PCR Routine 10/19/2023 3:35 AM WOOD MILLER documented in this encounter Results * DX Chest Portable 1 View (10/27/2023 10:24 AM WOOD MILLER) Anatomical Region Laterality Modality Chest, Thoracic RST LOS, Tho racic ARZ LOS, Thoracic FLA LOS N/A Digital Radiography Impressions 10/27/2023 10:34 AM WOOD MILLER No acute infiltrates. There is of bibasilar discoid atelectasis as described. Narrative 10/27/2023 10:34 AM WOOD MILLER EXAM: DX CHEST PORTABLE 1 VIEW COMPARISON: [...] Microscopic: Urine, Indwelling Catheter (10/27/2023 10:15 AM WOOD MILLER) Source Urine, Urine, Indwelling Catheter 10/27/2023 10:20 AM WOOD MILLER [facility] Clarity Slightly Cloudy(A) Clear 10/27/2023 10:22 AM WOOD MILLER [facility] Color Yellow 10/27/2023 10:22 AM WOOD MILLER [facility] Comment: ----REFERENCE VALUE---- Colorless Yellow Alana Blood Moderate(A) Negative 10/27/2023 10:22 AM WOOD MILLER [facility] Nitrite Negative Negative 10/27/2023 10:22 AM WOOD MILLER [facility] Leukocyte Esterase Moderate(A) Negative 10/27/2023 10:22 AM WOOD MILLER [facility] Protein Negative mg/dL 10/27/2023 10:22 AM WOOD MILLER [facility] Comment: ----REFERENCE VALUE---- Negative Trace Glucose Negative Negative mg/dL 10/27/2023 10:22 AM WOOD MILLER [facility] Ketones, QI(U) Negative Negative mg/dL 10/27/2023 10:22 AM WOOD MILLER [facility] Bilirubin Negative Negative 10/27/2023 10:22 AM WOOD MILLER [facility] pH 5.5 5.0 - 8.0 10/27/2023 10:22 AM WOOD MILLER [facility] Specific [place] 1.015 1.001 - 1.035 10/27/2023 10:22 AM WOOD MILLER [facility] Urobilinogen 0.2 0.2 - 1.0 mg/dL 10/27/2023 10:22 AM WOOD MILLER [facility] White Blood Cells 31-40(A) /hpf 10/27/2023 10:33 AM WOOD MILLER [facility] Comment: ----REFERENCE VALUE---- Males: 0-3 Females: 0-10 Unknown: 0-10 Red Blood Cells 11-20(A) 0 - 2 /hpf 10:33 AM WOOD MILLER [facility] Dysmorphic Red Blood Cells <=25 <=25 % 10/27/2023 10:33 AM WOOD MILLER [facility] Hyaline Casts 1-3 /lpf 10/27/2023 10:33 AM WOOD MILLER [facility] Crystals Calcium Oxalate(A) None Seen /lpf 10/27/2023 10:33 AM WOOD MILLER [facility] Mucus Present /hpf 10/27/2023 10:33 AM WOOD MILLER [facility] Squamous Cells Occ-3 /hpf 10/27/2023 10:33 AM WOOD MILLER [facility] Bacteria Present(A) None Seen 10/27/2023 10:33 AM WOOD MILLER [facility] Yeast Present(A) None Seen 10/27/2023 10:33 AM WOOD MILLER [facility] Urine (Urine, Indwelling Catheter) 10/27/2023 10:15 AM WOOD MILLER 10/27/2023 10:20 AM WOOD MILLER Camden Munoz M.D. LAB URINE ORDERABLES [facility] [address] [place] [id number], [facility] [email or web address]] [facility] [place] [address] [place] [id number] * (ABNORMAL) Morphology Evaluation (10/27/2023 6:48 AM WOOD MILLER) RBC Morphology See Specific Findings 10/27/2023 7:34 AM WOOD MILLER [facility] PLT Morphology Normal 10/27/2023 7:34 AM WOOD MILLER [facility] PLT Estimate Adequate Adequate 10/27/2023 7:34 AM WOOD MILLER [facility] Anisocytosis Slight(A) 10/27/2023 7:34 AM WOOD MILLER [facility] Reactive/Atypica l Lymphocytes Present(A) Not Seen 10/27/2023 7:34 AM WOOD MILLER [facility] Hypochromia Slight(A) Not Seen 10/27/2023 7:34 AM WOOD MILLER [facility] Blood 10/27/2023 6:48 AM WOOD MILLER 10/27/2023 7:04 AM WOOD MILLER Nicole Kaiser M.D. LAB BLOOD ADD-ON [facility] [address] [place] [id number], [facility] [email or web address]] [facility] in [address] [address] * (ABNORMAL) Basic Metabolic Panel (10/27/2023 6:48 AM WOOD MILLER) Potassium, P 4.2 3.6 - 5.2 mmol/L 10/27/2023 8:08 AM WOOD MILLER [facility] Sodium, P 139 135 - 145 mmol/L 10/27/2023 7:28 AM WOOD MILLER [facility] Chloride, P 98 98 - 107 mmol/L 10/27/2023 7:28 AM WOOD MILLER [facility] Bicarbonate, P 28 22 - 29 mmol/L 10/27/2023 7:28 AM WOOD MILLER [facility] Anion Gap, P 13 7 - 15 10/27/2023 7:28 AM WOOD MILLER [facility] BUN (Blood Urea Nitrogen), P 44(H) 6 - 21 mg/dL 10/27/2023 7:28 AM WOOD MILLER [facility] Creatinine 0.35(L) 0.59 - 1.04 mg/dL 10/27/2023 7:28 AM WOOD MILLER [facility] Estimated GFR (eGFR) >90 >=60 mL/min/BSA 10/27/2023 7:28 AM WOOD MILLER [facility] Comment: Estimated GFR calculated using the 2020 CKD_EPI creatinine equation. Calcium, Total, P 10.1 8.8 - 10.2 mg/dL 10/27/2023 7:28 AM WOOD MILLER [facility] Glucose, P 117 70 - 140 mg/dL 10/27/2023 7:28 AM WOOD MILLER [facility] Blood (Blood, Venous) 10/27/2023 6:48 AM WOOD MILLER 10/27/2023 7:04 AM WOOD MILLER Nicole Kaiser M.D. LAB BLOOD ADD-ON [facility] [address] [place] [id number], [facility] [email or web address]] [facility] in [address] [address] * (ABNORMAL) CBC with Differential, Blood (10/27/2023 6:48 AM WOOD MILLER) Hemoglobin 14.4 11.6 - 15.0 g/dL 10/27/2023 7:34 AM WOOD MILLER [facility] Hematocrit 46.5(H) 35.5 - 44.9 % 10/27/2023 7:34 AM WOOD MILLER [facility] Erythrocytes 5.46(H) 3.92 - 5.13 x10(12)/L 10/27/2023 7:34 AM WOOD MILLER [facility] MCV 85.2 78.2 - 97.9 fL 10/27/2023 7:34 AM WOOD MILLER [facility] RBC Distrib Width 19.9(H) 12.2 - 16.1 % 10/27/2023 7:34 AM WOOD MILLER [facility] Platelet Count 293 157 - 371 x10(9)/L 10/27/2023 7:34 AM WOOD MILLER [facility] Leukocytes 21.8(H) 3.4 - 9.6 x10(9)/L 10/27/2023 7:34 AM WOOD MILLER [facility] Neutrophils 14.70(H) 1.56 - 6.45 x10(9)/L 10/27/2023 7:34 AM WOOD MILLER [facility] Lymphocytes 5.51(H) 0.95 - 3.07 x10(9)/L 10/27/2023 7:34 AM WOOD MILLER [facility] Monocytes 1.35(H) 0.26 - 0.81 x10(9)/L 10/27/2023 7:34 AM WOOD MILLER [facility] Eosinophils 0.09 0.03 - 0.48 x10(9)/L 10/27/2023 7:34 AM WOOD MILLER [facility] Basophils 0.10(H) 0.01 - 0.08 x10(9)/L 10/27/2023 7:34 AM WOOD MILLER [facility] Blood (Blood, Venous) 10/27/2023 6:48 AM WOOD MILLER 10/27/2023 7:04 AM WOOD MILLER Nicole Kaiser M.D. LAB BLOOD ADD-ON [facility] [address] [place] [id number], [facility] [[email or web address]] [facility] [place] [address] [place] [id number] * DX Chest Portable 1 View (10/22/2023 10:53 AM WOOD MILLER) Anatomical Region Laterality Modality Chest, Thoracic RST LOS, Tho racic ARZ LOS, Thoracic FLA LOS N/A Digital Radiography Impressions 10/22/2023 10:56 AM WOOD MILLER Decreasing infiltrate in the RIGHT lower lobe since October 18. Narrative 10/22/2023 10:56 AM WOOD MILLER EXAM: DX CHEST PORTABLE 1 VIEW COMPARISON: [...] * (ABNORMAL) Morphology Evaluation (10/22/2023 6:19 AM WOOD MILLER) RBC Morphology See Specific Findings 10/22/2023 7:09 AM WOOD MILLER [facility] PLT Morphology Normal 10/22/2023 7:09 AM WOOD MILLER [facility] PLT Estimate Adequate Adequate 10/22/2023 7:09 AM WOOD MILLER [facility] Anisocytosis Slight(A) 10/22/2023 7:09 AM WOOD MILLER [facility] Microcytosis Slight(A) Not Seen 10/22/2023 7:09 AM WOOD MILLER [facility] Blood 10/22/2023 6:19 AM WOOD MILLER 10/22/2023 6:39 AM WOOD MILLER Williams Barber M.D. LAB BLOOD ADD -ON Performing Organization Address [facility]/ZIP Co de Phone Number [facility] [address] [place] [phone], [facility] [[email or web address]] [facility] in [address] [address] * (ABNORMAL) CRP (C-Reactive Protein) (10/22/2023 6:19 AM WOOD MILLER) [facility] C-Reactive Protein (CRP), P 12.0(H) <5.0 mg/L 10/22/2023 7:01 AM WOOD MILLER [facility] Blood (Blood, Venous) 10/22/2023 6:19 AM WOOD MILLER 10/22/2023 6:39 AM WOOD MILLER Williams Barber M.D. LAB BLOOD ADD -ON Performing Organization Address [facility]/RUST Co de Phone Number [facility] [address] [place] [phone], [facility] [[email or web address]] [facility] in [address] [address] * (ABNORMAL) CBC with Differential, Blood (10/22/2023 6:19 AM WOOD MILLER) Pathologist [facility] Hemoglobin 12.7 11.6 - 15.0 g/dL 10/22/2023 7:02 AM WOOD MILLER [facility] Hematocrit 41.2 35.5 - 44.9 % 10/22/2023 7:02 AM WOOD MILLER [facility] Erythrocytes 4.85 3.92 - 5.13 x10(12)/L 10/22/2023 7:02 AM WOOD MILLER [facility] MCV 84.9 78.2 - 97.9 fL 10/22/2023 7:02 AM WOOD MILLER [facility] RBC Distrib Width 19.3(H) 12.2 - 16.1 % 10/22/2023 7:02 AM WOOD MILLER [facility] Platelet Count 273 157 - 371 x10(9)/L 10/22/2023 7:02 AM WOOD MILLER [facility] Leukocytes 13.9(H) 3.4 - 9.6 x10(9)/L 10/22/2023 7:02 AM WOOD MILLER [facility] Neutrophils 9.71(H) 1.56 - 6.45 x10(9)/L 10/22/2023 7:02 AM WOOD MILLER [facility] Lymphocytes 2.90 0.95 - 3.07 x10(9)/L 10/22/2023 7:02 AM WOOD MILLER [facility] Monocytes 1.21(H) 0.26 - 0.81 x10(9)/L 10/22/2023 7:02 AM WOOD MILLER [facility] Eosinophils 0.00(L) 0.03 - 0.48 x10(9)/L 10/22/2023 7:02 AM WOOD MILLER [facility] Basophils 0.03 0.01 - 0.08 x10(9)/L 10/22/2023 7:02 AM WOOD MILLER [facility] Blood (Blood, Venous) 10/22/2023 6:19 AM WOOD MILLER 10/22/2023 6:39 AM WOOD MILLER Williams Barber M.D. LAB BLOOD ADD -ON [facility] [address] [place] [address], [facility] [[email or web address]] [facility] [place] [address] * (ABNORMAL) Morphology Evaluation (10/21/2023 6:32 AM WOOD MILLER) RBC Morphology See Specific Findings 10/21/2023 7:30 AM WOOD MILLER [facility] PLT Morphology Normal 10/21/2023 7:30 AM WOOD MILLER [facility] PLT Estimate Adequate Adequate 10/21/2023 7:30 AM WOOD MILLER [facility] Anisocytosis Slight(A) 10/21/2023 7:30 AM WOOD MILLER [facility] Microcytosis Slight(A) Not Seen 10/21/2023 7:30 AM WOOD MILLER [facility] Blood 10/21/2023 6:32 AM WOOD MILLER 10/21/2023 6:44 AM WOOD MILLER Pancho Burr M.D. LAB BLOOD ADD-ON [facility] [address] [place] [phone], [facility] [[email or web address]] [facility] in [address] [address] * (ABNORMAL) CBC with Differential, Blood (10/21/2023 6:32 AM WOOD MILLER) Hemoglobin 12.0 11.6 - 15.0 g/dL 10/21/2023 7:15 AM WOOD MILLER [facility] Hematocrit 39.7 35.5 - 44.9 % 10/21/2023 7:15 AM WOOD MILLER [facility] Erythrocytes 4.63 3.92 - 5.13 x10(12)/L 10/21/2023 7:15 AM WOOD MILLER [facility] MCV 85.7 78.2 - 97.9 fL 10/21/2023 7:15 AM WOOD MILLER [facility] RBC Distrib Width 19.3(H) 12.2 - 16.1 % 10/21/2023 7:15 AM WOOD MILLER [facility] Platelet Count 260 157 - 371 x10(9)/L 10/21/2023 7:15 AM WOOD MILLER [facility] Leukocytes 12.7(H) 3.4 - 9.6 x10(9)/L 10/21/2023 7:15 AM WOOD MILLER [facility] Neutrophils 8.59(H) 1.56 - 6.45 x10(9)/L 10/21/2023 7:15 AM WOOD MILLER [facility] Lymphocytes 3.13(H) 0.95 - 3.07 x10(9)/L 10/21/2023 7:15 AM WOOD MILLER [facility] Monocytes 0.96(H) 0.26 - 0.81 x10(9)/L 10/21/2023 7:15 AM WOOD MILLER [facility] Eosinophils 0.01(L) 0.03 - 0.48 x10(9)/L 10/21/2023 7:15 AM WOOD MILLER [facility] Basophils 0.01 0.01 - 0.08 x10(9)/L 10/21/2023 7:15 AM WOOD MILLER [facility] Blood (Blood, Venous) 10/21/2023 6:32 AM WOOD MILLER 10/21/2023 6:44 AM WOOD MILLER Pancho Burr M.D. LAB BLOOD ADD-ON Performing Organization Address City/[facility]/ZIP Co de Phone Number [facility] [address] [place] [phone], [facility] [[email or web address]] [facility] in [address] [address] * (ABNORMAL) Basic Metabolic Panel (10/21/2023 6:32 AM WOOD MILLER) Potassium, P 4.2 3.6 - 5.2 mmol/L 10/21/2023 7:08 AM WOOD MILLER [facility] Sodium, P 137 135 - 145 mmol/L 10/21/2023 7:08 AM WOOD MILLER [facility] Chloride, P 97(L) 98 - 107 mmol/L 10/21/2023 7:08 AM WOOD MILLER [facility] Bicarbonate, P 30(H) 22 - 29 mmol/L 10/21/2023 7:07 AM WOOD MILLER [facility] Anion Gap, P 10 7 - 15 10/21/2023 7:08 AM WOOD MILLER [facility] BUN (Blood Urea Nitrogen), P 36(H) 6 - 21 mg/dL 10/21/2023 7:07 AM WOOD MILLER [facility] Creatinine 0.37(L) 0.59 - 1.04 mg/dL 10/21/2023 7:07 AM WOOD MILLER [facility] Estimated GFR (eGFR) >90 >=60 mL/min/BSA 10/21/2023 7:07 AM WOOD MILLER [facility] Comment: Estimated GFR calculated using the 2020 CKD_EPI creatinine equation. Calcium, Total, P 9.1 8.8 - 10.2 mg/dL 10/21/2023 7:07 AM WOOD MILLER [facility] Glucose, P 119 70 - 140 mg/dL 10/21/2023 7:07 AM WOOD MILLER [facility] Blood (Blood, Venous) 10/21/2023 6:32 AM WOOD MILLER 10/21/2023 6:45 AM WOOD MILLER Pancho Burr M.D. LAB BLOOD ADD-ON Performing Organization Address City/[facility]/ZIP Co de Phone Number [facility] [address] [place] [phone], [facility] in [address] [address] * (ABNORMAL) Morphology Evaluation (10/20/2023 6:08 AM WOOD MILLER) RBC Morphology See Specific Findings 10/20/2023 6:49 AM WOOD MILLER [facility] PLT Morphology See Specific Findings 10/20/2023 6:49 AM WOOD MILLER [facility] PLT Estimate Adequate Adequate 10/20/2023 6:49 AM WOOD MILLER [facility] Anisocytosis Slight(A) 10/20/2023 6:49 AM WOOD MILLER [facility] Hypochromia Slight(A) Not Seen 10/20/2023 6:49 AM WOOD MILLER [facility] Large PLT Present(A) Not Seen 10/20/2023 6:49 AM WOOD MILLER [facility] Blood 10/20/2023 6:08 AM WOOD MILLER 10/20/2023 6:16 AM WOOD MILLER Pancho Burr M.D. LAB BLOOD ADD-ON [facility] [address] [place] [phone], [facility] in [address] [address] * (ABNORMAL) CRP (C-Reactive Protein) (10/20/2023 6:08 AM WOOD MILLER) Pathologist [facility] C-Reactive Protein (CRP), P 49.7(H) <5.0 mg/L 10/20/2023 6:38 AM WOOD MILLER [facility] Blood (Blood, Venous) 10/20/2023 6:08 AM WOOD MILLER 10/20/2023 6:16 AM WOOD MILLER Pancho Burr M.D. LAB BLOOD ADD-ON [facility] [address] [place] [phone], [facility] in [address] [address] * (ABNORMAL) CBC with Differential, Blood (10/20/2023 6:08 AM WOOD MILLER) Pathologist [facility] Hemoglobin 11.7 11.6 - 15.0 g/dL 10/20/2023 6:48 AM WOOD MILLER [facility] Hematocrit 38.4 35.5 - 44.9 % 10/20/2023 6:48 AM WOOD MILLER [facility] Erythrocytes 4.46 3.92 - 5.13 x10(12)/L 10/20/2023 6:48 AM WOOD MILLER [facility] MCV 86.1 78.2 - 97.9 fL 10/20/2023 6:48 AM WOOD MILLER [facility] RBC Distrib Width 19.5(H) 12.2 - 16.1 % 10/20/2023 6:48 AM WOOD MILLER [facility] Platelet Count 239 157 - 371 x10(9)/L 10/20/2023 6:48 AM WOOD MILLER [facility] Leukocytes 12.0(H) 3.4 - 9.6 x10(9)/L 10/20/2023 6:48 AM WOOD MILLER [facility] Neutrophils 8.70(H) 1.56 - 6.45 x10(9)/L 10/20/2023 6:48 AM WOOD MILLER [facility] Lymphocytes 2.52 0.95 - 3.07 x10(9)/L 10/20/2023 6:48 AM WOOD MILLER [facility] Monocytes 0.74 0.26 - 0.81 x10(9)/L 10/20/2023 6:48 AM WOOD MILLER [facility] Eosinophils 0.01(L) 0.03 - 0.48 x10(9)/L 10/20/2023 6:48 AM WOOD MILLER [facility] Basophils 0.02 0.01 - 0.08 x10(9)/L 10/20/2023 6:48 AM WOOD MILLER [facility] Blood (Blood, Venous) 10/20/2023 6:08 AM WOOD MILLER 10/20/2023 6:16 AM WOOD MILLER Pancho Burr M.D. LAB BLOOD ADD-ON [facility] [address] [place] [phone], [facility] [[email or web address]] [facility] in [address] [address] * (ABNORMAL) Basic Metabolic Panel (10/20/2023 6:08 AM WOOD MILLER) Potassium, P 4.4 3.6 - 5.2 mmol/L 10/20/2023 6:38 AM WOOD MILLER [facility] Sodium, P 139 135 - 145 mmol/L 10/20/2023 6:38 AM WOOD MILLER [facility] Chloride, P 98 98 - 107 mmol/L 10/20/2023 6:38 AM WOOD MILLER [facility] Bicarbonate, P 31(H) 22 - 29 mmol/L 10/20/2023 6:38 AM WOOD MILLER [facility] Anion Gap, P 10 7 - 15 10/20/2023 6:38 AM WOOD MILLER [facility] BUN (Blood Urea Nitrogen), P 33(H) 6 - 21 mg/dL 10/20/2023 6:38 AM WOOD MILLER [facility] Creatinine 0.43(L) 0.59 - 1.04 mg/dL 10/20/2023 6:38 AM WOOD MILLER [facility] Estimated GFR (eGFR) >90 >=60 mL/min/BSA 10/20/2023 6:38 AM WOOD MILLER [facility] Comment: Estimated GFR calculated using the 2020 CKD_EPI creatinine equation. Calcium, Total, P 8.9 8.8 - 10.2 mg/dL 10/20/2023 6:38 AM WOOD MILLER [facility] Glucose, P 162(H) 70 - 140 mg/dL 10/20/2023 6:38 AM WOOD MILLER [facility] Blood (Blood, Venous) 10/20/2023 6:08 AM WOOD MILLER 10/20/2023 6:16 AM WOOD MILLER Pancho Burr M.D. LAB BLOOD ADD-ON [facility] [address] [place] [phone], [facility] [[email or web address]] [facility] in [address] [address] * (ABNORMAL) Morphology Evaluation (10/19/2023 4:27 AM WOOD MILLER) RBC Morphology See Specific Findings 10/19/2023 4:56 AM WOOD MILLER [facility] PLT Morphology Normal 10/19/2023 4:56 AM WOOD MILLER [facility] PLT Estimate Adequate Adequate 10/19/2023 4:56 AM WOOD MILLER [facility] Anisocytosis Moderate(A) 10/19/2023 4:56 AM WOOD MILLER [facility] Hypochromia Slight(A) Not Seen 10/19/2023 4:56 AM WOOD MILLER [facility] Blood 10/19/2023 4:27 AM WOOD MILLER 10/19/2023 4:29 AM WOOD MILLER Pancho Burr M.D. LAB BLOOD ADD-ON Performing Organization Address City/[facility]/ZIP Co de Phone Number [facility] [address] [place] [phone], [facility] [[email or web address]] [facility] in [address] [address] * (ABNORMAL) Hepatic Function Panel (10/19/2023 4:27 AM WOOD MILLER) Bilirubin, Total, P 0.4 0.0 - 1.2 mg/dL 10/19/2023 4:49 AM WOOD MILLER [facility] Bilirubin, Direct, P <0.2 0.0 - 0.3 mg/dL 10/19/2023 4:49 AM WOOD MILLER [facility] Aspartate Aminotransferase (AST), P 38 8 - 43 U/L 10/19/2023 4:49 AM WOOD MILLER [facility] Alanine Aminotransferase (ALT), P 17 7 - 45 U/L 10/19/2023 4:49 AM WOOD MILLER [facility] Alkaline Phosphatase, P 148(H) 35 - 104 U/L 10/19/2023 4:49 AM WOOD MILLER [facility] Albumin, P 3.1(L) 3.5 - 5.0 g/dL 10/19/2023 4:49 AM WOOD MILLER [facility] Protein, Total, P 5.0(L) 6.3 - 7.9 g/dL 10/19/2023 4:49 AM WOOD MILLER [facility] Blood (Blood, Venous) 10/19/2023 4:27 AM WOOD MILLER 10/19/2023 4:29 AM WOOD MILLER Pancho Burr M.D. LAB BLOOD ADD-ON Performing Organization Address City/[facility]/ZIP Co de Phone Number [facility] [address] [place] [phone], [facility] in [address] [address] * (ABNORMAL) CRP (C-Reactive Protein) (10/19/2023 4:27 AM WOOD MILLER) [facility] C-Reactive Protein (CRP), P 53.4(H) <5.0 mg/L 10/19/2023 4:49 AM WOOD MILLER [facility] Blood (Blood, Venous) 10/19/2023 4:27 AM WOOD MILLER 10/19/2023 4:29 AM WOOD MILLER Pancho Burr M.D. LAB BLOOD ADD-ON [facility] [address] [place] [phone], [facility] [address] [address] * (ABNORMAL) CBC with Differential, Blood (10/19/2023 4:27 AM WOOD MILLER) [facility] Hemoglobin 11.3(L) 11.6 - 15.0 g/dL 10/19/2023 4:56 AM WOOD MILLER [facility] Hematocrit 37.3 35.5 - 44.9 % 10/19/2023 4:56 AM WOOD MILLER [facility] Erythrocytes 4.37 3.92 - 5.13 x10(12)/L 10/19/2023 4:56 AM WOOD MILLER [facility] MCV 85.4 78.2 - 97.9 fL 10/19/2023 4:56 AM WOOD MILLER [facility] RBC Distrib Width 19.2(H) 12.2 - 16.1 % 10/19/2023 4:56 AM WOOD MILLER [facility] Platelet Count 249 157 - 371 x10(9)/L 10/19/2023 4:56 AM WOOD MILLER [facility] Leukocytes 16.0(H) 3.4 - 9.6 x10(9)/L 10/19/2023 4:56 AM WOOD MILLER [facility] Neutrophils 12.40(H) 1.56 - 6.45 x10(9)/L 10/19/2023 4:56 AM WOOD MILLER [facility] Lymphocytes 2.71 0.95 - 3.07 x10(9)/L 10/19/2023 4:56 AM WOOD MILLER [facility] Monocytes 0.84(H) 0.26 - 0.81 x10(9)/L 10/19/2023 4:56 AM WOOD MILLER [facility] Eosinophils 0.02(L) 0.03 - 0.48 x10(9)/L 10/19/2023 4:56 AM WOOD MILLER [facility] Basophils 0.03 0.01 - 0.08 x10(9)/L 10/19/2023 4:56 AM WOOD MILLER [facility] Blood (Blood, Venous) 10/19/2023 4:27 AM WOOD MILLER 10/19/2023 4:29 AM WOOD MILLER Pancho Burr M.D. LAB BLOOD ADD-ON [facility] [address] [place] [phone], [facility] [[email or web address]] [facility] in [address] [address] * (ABNORMAL) Basic Metabolic Panel (10/19/2023 4:27 AM WOOD MILLER) Potassium, P 3.6 3.6 - 5.2 mmol/L 10/19/2023 4:49 AM WOOD MILLER [facility] Sodium, P 135 135 - 145 mmol/L 10/19/2023 4:49 AM WOOD MILLER [facility] Chloride, P 95(L) 98 - 107 mmol/L 10/19/2023 4:49 AM WOOD MILLER [facility] Bicarbonate, P 30(H) 22 - 29 mmol/L 10/19/2023 4:49 AM WOOD MILLER [facility] Anion Gap, P 10 7 - 15 10/19/2023 4:49 AM WOOD MILLER [facility] BUN (Blood Urea Nitrogen), P 23(H) 6 - 21 mg/dL 10/19/2023 4:49 AM WOOD MILLER [facility] Creatinine 0.37(L) 0.59 - 1.04 mg/dL 10/19/2023 4:49 AM WOOD MILLER [facility] Estimated GFR (eGFR) >90 >=60 mL/min/BSA 10/19/2023 4:49 AM WOOD MILLER [facility] Comment: Estimated GFR calculated using the 2020 CKD_EPI creatinine equation. Calcium, Total, P 8.3(L) 8.8 - 10.2 mg/dL 10/19/2023 4:49 AM WOOD MILLER [facility] Glucose, P 129 70 - 140 mg/dL 10/19/2023 4:49 AM WOOD MILLER [place] Blood (Blood, Venous) 10/19/2023 4:27 AM WOOD MILLER 10/19/2023 4:29 AM WOOD MILLER Pancho Burr M.D. LAB BLOOD ADD-ON Performing Organization Address City/[facility]/ZIP Co de Phone Number [facility] [address] [place] [phone], [facility] in [address] [address] * (ABNORMAL) D-Dimer (10/19/2023 4:27 AM WOOD MILLER) D-Dimer, P 3988(H) <=500 ng/mL FEU 10/19/2023 4:46 AM WOOD M[facility]ER [facility] Comment: D-dimer concentrations increase with age. [...] (PE). Blood (Blood, Venous) 10/19/2023 4:27 AM WOOD MILLER 10/19/2023 4:29 AM WOOD MILLER Pancho Burr M.D. LAB BLOOD ADD-ON Performing Organization Address [facility]/ZIP Co de Phone Number [facility] [address] [place] [phone], [facility] in [address] [address] * (ABNORMAL) MRSA PCR, Nasal (10/19/2023 3:35 AM WOOD MILLER) MRSA Screen, Nasal by PCR Positive(A ) Negative 10/19/2023 5:28 PM WOOD MILLER MKTO Semi-Urgent This is a semi-urgen t result(FLEMING) [facility] Swab (Nares) 10/19/2023 3:35 AM WOOD MILLER 10/19/2023 4:22 PM WOOD MILLER Pancho Burr M.D. 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) Chronic Diastolic (Congestive) Heart Failure (HCC) Paraplegia (HCC) Hypertension Essential Primary Arthritis Rheumatoid (HCC) Corticosteroid Treatment Chcf Systemic Neurogenic Bladder Other Adrenocortical Insufficiency (HCC) [...] Fri10/19/23 at 0900 Given 10/27/2023 8:07 AM WOOD MILLER 1,000 mg Given 10/26/2023 8:20 PM WOOD MILLER 1,000 mg Given 10/26/2023 1:37 PM WOOD MILLER 1,000 mg amoxicillin-pot clavulanate 875-125 mg per tablet 1 tablet (AUGMENTIN) 1 tablet, oral, 2 times daily with meals, First dose on Fri10/22/23 at 1015, For 8 doses, Drug Monitoring Program: Pharmacist to adjust medication dosing based on indication and drug clearance factors., Indications: Respiratory tract infection, community acquired Given 10/25/2023 4:10 PM WOOD MILLER 1 tablet Given 10/25/2023 8:50 AM WOOD MILLER 1 tablet Given 10/24/2023 4:01 PM WOOD MILLER 1 tablet ascorbic acid (vitamin C) tablet 1,000 mg (VITAMIN C) 1,000 mg, oral, Daily, First dose on Fri10/19/23 at 0900 Given 10/27/2023 8:07 AM WOOD MILLER 1,000 mg Given 10/26/2023 9:04 AM WOOD MILLER 1,000 mg Given 10/25/2023 8:52 AM WOOD MILLER 1,000 mg benzonatate capsule 100 mg (TESSALON PERLES) 100 mg, oral, 4 times daily, First dose (after last modification) on Fri10/19/23 at 1330, Swallow whole. Do NOT crush, chew or open capsule. Given 10/19/2023 9:44 PM WOOD MILLER 100 mg Given 10/19/2023 4:16 PM WOOD MILLER 100 mg Given 10/19/2023 1:20 PM WOOD MILLER 100 mg benzonatate capsule 100 mg (TESSALON PERLES) 100 mg, oral, 3 times daily PRN, cough, Starting on Fri10/21/23 at 1145, Swallow whole. Do NOT crush, chew or open capsule. bisacodyL suppository 10 mg (DULCOLAX) 10 mg, rectal, 2 times daily PRN, constipation, Starting on Fri10/19/23 at 0212 Given 10/26/2023 9:05 AM WOOD MILLER 10 mg Given 10/22/2023 1:26 PM WOOD MILLER 10 mg carboxymethylcellulose 0.5 % ophthalmic solution 1 drop (REFRESH PLUS) 1 drop, both eyes, 3 times daily PRN, dry eyes, Starting on 10/25/23 at 1121 Given 10/25/2023 4:13 PM WOOD MILLER 1 drop ceFEPIme injection 2 g (MAXIPIME) 2 g, intravenous, Every 12 hours, First dose on Fri10/19/23 at 0900, For 9 doses, If needed, reconstitute vial per package insert instructions. See IVAG for administration guidelines., Drug Monitoring Program: Pharmacist to adjust medication dosing based on indication and drug clearance factors., Indications: Pneumonia Given 10/19/2023 9:01 AM WOOD MILLER 2 g cefTRIAXone injection 2 g (ROCEPHIN) 2 g, intravenous, Daily at bedtime, First dose on Fri10/19/23 at 2115, If needed, reconstitute vial per package insert instructions. See IVAG for administration guidelines., Drug Monitoring Program: Pharmacist to adjust medication dosing based on indication and drug clearance factors., Indications: Aspiration pneumonia Given 10/21/2023 8:28 PM WOOD MILLER 2 g Given 10/20/2023 8:31 PM WOOD MILLER 2 g Given 10/19/2023 9:43 PM WOOD MILLER 2 g doxycycline 100 mg in NaCl 0.9% IVPB (VIBRAMYCIN) 100 mg, intravenous, at 100 mL/hr, Administer over 60 Minutes, Every 12 hours, First dose on Fri10/19/23 at 0900, For 9 doses, Mini-Bag Plus bag, Indications: Pnemonia Rate/Dose Change 10/20/2023 8:25 AM WOOD MILLER 75 mL /hr New Bag 10/20/2023 8:10 AM WOOD MILLER 100 mg 100 mL/hr New Bag 10/19/2023 9:44 PM WOOD MILLER 100 mg 100 mL/hr doxycycline monohydrate tablet [...] infection, community acquired Given 10/23/2023 6:39 AM WOOD MILLER 100 mg Given 10/22/2023 4:01 PM WOOD MILLER 100 mg Given 10/22/2023 6:17 AM WOOD MILLER 100 mg furosemide tablet 40 mg (LASIX) 40 mg, oral, Daily, First dose (after last modification) on Fri10/25/23 at 0900 Given 10/27/2023 8:07 AM WOOD MILLER 40 mg Given 10/26/2023 9:05 AM WOOD MILLER 40 mg Given 10/25/2023 8:51 AM WOOD MILLER 40 mg furosemide tablet 50 mg (LASIX) 50 mg, oral, 2 times daily, First dose on Fri10/19/23 at 0900 Given 10/24/2023 8:31 AM WOOD MILLER 50 mg Given 10/23/2023 5:31 PM WOOD MILLER 50 mg Given 10/23/2023 8:18 AM WOOD MILLER 50 mg gabapentin capsule 300 mg (NEURONTIN) 300 mg, oral, 3 times daily, First dose on Fri10/19/23 at 0900 Given 10/27/2023 8:07 AM WOOD MILLER 300 mg Given 10/26/2023 8:20 PM WOOD MILLER 300 mg Given 10/26/2023 1:37 PM WOOD MILLER 300 mg ipratropium 0.02 % nebulizer solution 500 mcg (ATROVENT) 500 mcg (0.5 mg), nebulization, Every 6 hours scheduled, First dose on Fri10/20/23 at 0000 Given 10/21/2023 6:27 AM WOOD MILLER 500 mcg Given 10/21/2023 12:15 AM WOOD MILLER 500 mcg Given 10/20/2023 6:34 PM WOOD MILLER 500 mcg ipratropium 0.02 % nebulizer solution 500 mcg (ATROVENT) 500 mcg (0.5 mg), nebulization, 3 times daily (RT), First dose (after last modification) on Fri10/21/23 at 1300 Given 10/27/2023 6:15 AM WOOD MILLER 500 mcg Given 10/26/2023 6:17 PM WOOD MILLER 500 mcg Given 10/26/2023 12:00 PM WOOD MILLER 500 mcg ipratropium-albuteroL 0.5-2.5 mg/3 mL nebulizer solution 3 mL (DUONEB) 3 mL, nebulization, Every 6 hours scheduled, First dose on Fri10/19/23 at 0600 Given 10/19/2023 11:32 AM [facility] [facility] 3 mL Given 10/19/2023 6:37 AM [facility] 3 mL metoprolol succinate 24 hr tablet 50 mg (TOPROL-XL) 50 mg, oral, Daily, First dose on Fri10/19/23 at 0900, Do NOT crush or chew. Tablet may be split on score if needed. Given 10/19/2023 8:49 AM [facility] 50 mg metoprolol succinate 24 hr tablet 50 mg (TOPROL-XL) 50 mg, oral, Daily, First dose on Fri10/20/23 at 0900, Hypertension Do NOT crush or chew. Tablet may be split on score if needed. Given 10/27/2023 8:07 AM [facility] [facility] 50 m g Given 10/26/2023 9:04 AM [facility] [facility] 50 mg Given 10/25/2023 8:50 AM [facility] [facility] 50 mg miconazole 2 % powder 1 Application (MICATIN) 1 Application, topical, 2 times daily, First dose on Fri10/19/23 at 0900, Apply to skin folds and groin Given 10/27/2023 8:08 AM [facility] [facility] 1 Application Given 10/26/2023 8:21 PM [facility] [facility] 1 Application Given 10/26/2023 9:10 AM [facility] [facility] 1 Application oxyCODONE IR tablet 10 mg (ROXICODONE) 10 mg, oral, Once, On Merry 10/23/23 at 1730, For 1 dose Given 10/23/2023 5:31 PM [facility] [facility] 10 mg oxyCODONE IR tablet 5 mg (ROXICODONE) 5 mg, oral, Every 4 hours PRN, moderate pain or score 4-6 of 10, severe pain or score 7-10 of 10, Hold for sedation., Starting on Fri10/19/23 at 0212, Indications: Chronic Pain/Nonacute Pain Given 10/19/2023 12:30 PM [facility] [facility] 5 mg Given 10/19/2023 7:21 AM [facility] [facility] 5 mg oxyCODONE IR tablet 5 mg (ROXICODONE) 5 mg, oral, Once, On Fri10/19/23 at 1715, For 1 dose, To help with wound VAC application. Given 10/19/2023 5:21 PM [facility] [facility] 5 mg oxyCODONE IR tablet 5 mg (ROXICODONE) 5 mg, oral, Every 4 hours PRN, moderate pain or score 4-6 of 10, severe pain or score 7-10 of 10, Please give oxycodone about 30 minutes before wound cares. Hold for sedation., Starting on Fri10/19/23 at 1653, Indications: Chronic Pain/Nonacute Pain Given 10/27/2023 11:53 AM [facility] [facility] 5 mg Given 10/27/2023 1:04 AM [facility] [facility] 5 mg Given 10/26/2023 8:20 PM [facility] [facility] [address] tablet 40 mg (PROTONIX) 40 mg, oral, 2 times daily before breakfast and dinner, First dose on Fri10/19/23 at 0700, pantoprazole 40 mg oral twice daily was interchanged for omeprazole 20 or 40 mg oral twice daily Swallow whole. Do NOT crush, chew, or split tablet. Given 10/27/2023 6:15 AM [facility] [facility] 40 mg Given 10/26/2023 4:08 PM [facility] [facility] 40 mg Given 10/26/2023 6:36 AM [employer] [facility] 40 mg pediatric dgjslaqtyfhp-nxlg-nrloclkf chewable tablet 1 tablet (FLINTSTONES COMPLETE) 1 tablet, oral, Daily, First dose on 10/19/23 at 0900 Given 10/27/2023 8:07 AM [facility] [facility] 1 tablet Given 10/26/2023 9:04 AM [employer] [facility] 1 tablet Given 10/25/2023 8:50 AM [facility] [facility] 1 tablet potassium chloride ER tablet 20 mEq (KLORCON/K-TAB) 20 mEq, oral, 3 times daily with meals, First dose on 10/19/23 at 0800, potassium chloride orderable was interchanged for potassium chloride tablet/capsule Swallow whole. Do NOT crush, chew, or split tablet. Given 10/27/2023 11:53 AM [facility] [facility] 20 mEq Given 10/27/2023 8:07 AM [facility] [facility] 20 mEq Given 10/26/2023 4:08 PM [facility] [facility] 20 mEq predniSONE tablet 10 mg (DELTASONE) 10 mg, oral, Daily, First dose on 10/19/23 at 0900 Given 10/19/2023 8:49 AM [employer] [facility] 10 mg predniSONE tablet 10 mg (DELTASONE) 10 mg, oral, Daily, First dose (after last modification) on 10/28/23 at 0900, Rheumatoid arthritis and adrenal insufficiency. predniSONE tablet 20 mg (DELTASONE) 20 mg, oral, Daily, First dose on 10/25/23 at 0900, For 2 doses Given 10/26/2023 9:04 AM WOOD MILLER 20 mg Given 10/25/2023 8:52 AM WOOD MILLER 20 mg predniSONE tablet 25 mg (DELTASONE) 25 mg, oral, Once, On 10/19/23 at 1645, For 1 dose, Part of stress steroid regimen given pneumonia. Given 10/19/2023 5:03 PM WOOD MILLER 25 mg predniSONE tablet 30 mg (DELTASONE) 30 mg, oral, Daily, First dose on Merry 10/23/23 at 0900, For 2 doses Given 10/24/2023 8:31 AM WOOD MILLER 30 mg Given 10/23/2023 8:17 AM WOOD MILLER 30 mg predniSONE tablet 40 mg (DELTASONE) 40 mg, oral, Daily, First dose on Fri10/20/23 at 0900, For 3 doses, Stress steroid regimen. Given 10/22/2023 8:2 3 AM WOOD MILLER 40 mg Given 10/21/2023 8:40 AM WOOD MILLER 40 mg Given 10/20/2023 8:10 AM WOOD MILLER 40 mg zinc sulfate capsule 220 mg (ZINCATE) 220 mg, oral, Daily with breakfast, First dose on 10/19/23 at 0800, Doses listed in zinc sulfate. Each 220 mg of zinc sulfate contains 50 mg of elemental zinc. Given 10/27/2023 8:07 AM WOOD MILLER 220 mg Given 10/26/2023 9:04 AM WOOD MILLER 220 mg Given 10/25/2023 8:51 AM WOOD MILLER 220 mg documented in this encounter Active and Recently Administered Medications Times are shown in WOOD MILLER. Scheduled Medication Order 10/25/2023 10/26/2023 10/27/2023 acetaminophen [...] (Given - Provider: Catarina Downs RRobertoN.) pediatric kytmlihbsbgn-plti-dozkm als chewable tablet 1 tablet (FLINTSTONES COMPLETE) [...] Bui RRobertoN.) 0636 (Given - Provider: Zoie Butler RRobertoN.)1340 (Given - Provider: Romina Corcoran R.N.)2020 [...] doses documented in this encounter Care Teams Medical Radiation Dosimetrist Relationship Specialty Start Date End Date Osiris Otero APRN, C.N.P., R.N. [address] [place] [address] PCP - General Family Medicine 09/17/23 12/08/23 documented as of this encounter
--- OUTSIDE RECORDS SUMMARY | 2024-01-17 00:06 | XMS_ITS | Encounter Summary ---
Author Name Unknown Organization [facility] Address [address] [place] [address] Care Team Providers Care Lasting Room Supervisor Name Role Phone Shanna Mars Murcia APRN.N.Tia., R.N. Primary Care Provider Encounter Details Date Type Department Care Team (Late st Contact Info) Description 10/19/2023 10:30 AM CALL CENTER ASSOCIATE Ancillary Procedure Department of Emergency Medicine Social History Tobacco Use Types Packs/Day Years Used Date Smoking Tobacco: Never Smokeless Tobacco: Never Alcohol Use Standard Drinks/Week Comments Defer 0 (1 standard drink = 0.6 oz pur e alcohol) [facility] Utilities Answer Date Recorded In the past 12 months has e electric, gas, oil, or water [employer] threatened to shut off services in your [...] your living situation today? I have a [facility] place to live 10/19/2023 Sex and Gender Information Value Date Recorded Sex Assigned at Not on file Gender Identity Not on file Sexual Orientation Not on file documented as of this encounter Plan of Treatment Not on file documented as of this encounter Procedures Procedure Name Priority Date/Time Associated Diagnosis Comments EMERGENCY DEPARTMENT IMAGE EXAM Routine 10/19/2023 10:26 AM CALL CENTER ASSOCIATE documented in this encounter Results * Anus-Emergency Department Image Exam (10/19/2023 10:26 AM CALL CENTER ASSOCIATE) 10/19/2023 10:2 3 AM CALL CENTER ASSOCIATE Narrative [facility] - 10/19/2023 10:26 AM CALL CENTER ASSOCIATE This order has been created and auto-finalized to support the import of images acquired without order. The clinical documentation to support these images can be found on the encounter that produced images. Provider Not In System IMG NON RAD IMAGI NG PROCEDURES [facility] NA documented in this encounter Visit Diagnoses Not on filedocumented in this encounter Care Teams Lasting Room Supervisor Relationship Specialty Start Date End Date Osiris Otero APRN, C.N.P., R.N. [address] [place] [phone] PCP - General Family Medicine 09/17/23 12/08/23 documented as of this encounter
--- OUTSIDE RECORDS SUMMARY | 2024-01-17 00:06 | XMS_ITS | Encounter Summary ---
Author Name Unknown Organization [facility] Address [address] [place] [address] Care Team Providers Care Seed Service Advisor Name Role Phone Osiris Otero APRN C.N.P., R.N. Primary Care Provider Encounter Details Date Type Department Care Team (Latest Contact Info) Description 10/21/2023 1:41 AM FIRE SPRINKLER INSTALLER - 10/21/2023 11:59 PM [facility] Hospital Encounter Department of Laboratory Medicine in [place], [place] [address] [place] [address] Osiris Otero APRN, C.N.P., R.N. [address] [place] [phone] Edema Localized Discharge Disposition: Home or Self [...] your living situation today? I have a [facility] place to live 10/19/2023 Sex and [...] Localized documented in this encounter Care Teams Seed Service Advisor Relationship Specialty Start Date End Date Osiris Otero APRN, C.N.P., R.N. [address] [place] [address] PCP - General Family Medicine 09/17/23 12/08/23 documented as of this encounter
--- OUTSIDE RECORDS SUMMARY | 2024-01-17 00:06 | XMS_ITS | Encounter Summary ---
Author Name Unknown Organization [facility] Address [address] [place] [address] Care Team Providers Care Fighter Pilot Name Role Phone Osiris Otero APRN, C.N.Tia., R.N. Primary Care Provider Encounter Details Date Type Department Care Team (Late st Contact Info) Description 10/20/2023 10:00 AM DIRECTOR RECREATION Ancillary Procedure Department of Family Medicine Social History Tobacco Use Types Packs/Day Years Used Date Smoking Tobacco: Never Smokeless Tobacco: Never Alcohol Use Standard Drinks/Week Comments Defer 0 (1 standard drink = 0.6 oz pur e alcohol) [facility] Utilities Answer Date Recorded In the past 12 months has e electric, gas, oil, or water [employer] threatened to shut off services in your [...] your living situation today? I have a [facility] place [facility] 10/19/2023 Sex and Gender Information Value Date Recorded Sex Assigned at Not on file Gender Identity Not on file Sexual Orientation Not on file documented as of this encounter Plan of Treatment Not on file documented as of this encounter Procedures Procedure Name Priority Date/Time Associated Diagnosis Comments FAMILY MEDICINE IMAGE EXAM Routine 10/20/2023 10:00 AM DIRECTOR RECREATION documented in this encounter Results * Buttocks/Sacrum (bilateral)-Family Medicine Image Exam (10/20/2023 10:00 AM DIRECTOR RECREATION) 10/20/2023 9:58 AM DIRECTOR RECREATION Narrative [facility] - 10/20/2023 10:00 AM DIRECTOR RECREATION This order has been created and auto-finalized to support the import of images acquired without order. The clinical documentation to support these images can be found on the encounter that produced images. Provider Not In System IMG NON RAD IMAGI NG PROCEDURES [facility] NA documented in this encounter Visit Diagnoses Not on filedocumented in this encounter Care Teams Fighter Pilot Relationship Specialty Start Date End Date Osiris Otero APRN, C.N.P., R.N. [address] [place] [address] PCP - General Family Medicine 09/17/23 12/08/23 documented as of this encounter
--- OUTSIDE RECORDS SUMMARY | 2024-01-17 00:07 | XMS_ITS | Encounter Summary ---
Author Name Unknown Organization [facility] Address [address] [place] [address] Care Team Providers Care Chemotherapist Name Role Phone Elsewhere, Pcp Primary Care [...] has e electric, gas, oil, or water [employer] threatened to shut off services in your [...] your living situation today? I have a [facility] place to live 10/19/2023 Sex and [...] Pending 10/18/2023 10/18/2023 10/18/2023 9 :11 PM SUBSTITUTE BUS DRIVER COVID19 11/13/2023 11/13/2023 12/03/2023 5:55 AM SUBSTITUTE BUS DRIVER documented as of this encounter Care Teams Chemotherapist Relationship Specialty Start Date End Date Elsewhere, Pcp PCP - General Internal Medicine 12/09/23 documented as of this encounter
--- OUTSIDE RECORDS SUMMARY | 2024-01-17 00:07 | XMS_ITS | Encounter Summary ---
Author Name Unknown Organization [facility] Address [address] [place] [address] Care Team Providers Care Chief Of Safety And Protection Name Role Phone ShannaFransisca lopezOsirsidilcia Doe APRN, C.N.P., R.N. Primary Care Provider Reason for Visit * Reason Comments Fever Resident of [facility]. Staff noted fever today accompanied with hypoxia. Noted to have room air saturations in the 80's. Encounter Details Date Type Department Care Team (Late st Contact Info) Description 10/18/2023 8:38 PM BEAD WIRE TAPER - 10/19/2023 12:45 AM [facility] Emergency [place] [address] [place] [phone] Iam Herrera D.O. [address] [place] [phone] Pneumonia (Primary Dx); Hypoxia Discharge Disposition: Acute Care Hospital Social History Tobacco Use Types Packs/Day Years Used Date Smoking Tobacco: Never Smokeless Tobacco: Never Alcohol Use Standard Drinks/Week Comments Defer 0 (1 standard drink = 0.6 oz pur e alcohol) [facility] Utilities Answer Date Recorded In [...] your living situation today? I have a [facility] place to live 10/19/2023 Sex and Gender Information Value Date Recorded Sex Assigned at Not on file Gender Identity Not on file Sexual Orientation Not on file documented as of this encounter Last Filed Vital Signs Vital Sign Reading Time Taken Comments Blood Pressure 105/47 10/19/2023 12:26 AM BEAD WIRE TAPER Pulse 97 10/19/2023 12:26 AM BEAD WIRE TAPER Temperature 36.5 ??C (97.7 ??F) 10/19/2023 12:[address] Respiratory Rate 16 10/19/2023 12:26 AM BEAD WIRE TAPER Oxygen Saturation 98% 10/19/2023 12:26 AM BEAD WIRE TAPER Inhaled Oxygen Concentration - - Weight 62.2 kg (137 lb 2 oz) 10/18/2023 8:31 PM BEAD WIRE TAPER Height - - Body Mass Index - [...] CHIEF COMPLAINT/REASON FOR VISIT Fever (Resident of [facility]. Staff noted fever today accompanied with [...] abdominal pain, vomiting/diarrhea. History provided by: Patient conference interpreter needed/used: no REVIEW OF SYSTEMS Constitutional: Positive [...] discussed with ATC and patient kindly accepted [facility]. Patient daughter in agreement with transfer. . DIFFERENTIAL DIAGNOSES Includes but not limited to: Pneumonia, viral URI, COVID/flu/RSV, CHF, urinary tract infection, dehydration, electrolyte abnormality. Final Diagnoses: as of 10/18/23 2241 Pneumonia Hypoxia Iam Herrera D.O. 10/19/23 0115 WIRE TAPER documented in this encounter Miscellaneous Notes * Result Encounter Note - Alison Graves M.D., M.P.H. - 10/21/2023 9:05 AM CST Sending to inpatient team in [place] where patient was transferred. Please review. Thank you. Alison Graves M.D., M.P.H. 10/21/23 0905 WIRE TAPER documented in this encounter Plan of Treatment Not on file documented as of this encounter Procedures Procedure Name Priority Date/Time Associated Diagnosis Comments NT-PRO B-TYPE NATRIURETIC PEPTIDE (BNP), S STAT 10/18/2023 11:48 PM BEAD WIRE TAPER ECG Routine 10/18/2023 11:32 PM BEAD WIRE TAPER BACTERIAL CULTURE, AEROBIC + SUSC, URINE Routine 10/18/2023 9:14 PM BEAD WIRE TAPER URINALYSIS WITH MICROSCOPIC Routine 10/18/2023 9:14 PM BEAD WIRE TAPER DX CHEST PORTABLE 1 VIEW RAD - Semiurgent (Fast; most ED patients; some inpatients) 10/18/2023 9:01 PM BEAD WIRE TAPER LACTATE FOR SEPSIS WITH REFLEX STAT 10/18/2023 8:46 PM BEAD WIRE TAPER BACTERIA / LUCY CULTURE, BLOOD STAT 10/18/2023 8:46 PM BEAD WIRE TAPER BACTERIA / LUCY CULTURE, BLOOD STAT 10/18/2023 8:46 PM BEAD WIRE TAPER CBC WITH DIFFERENTIAL, B STAT 10/18/2023 8:46 PM BEAD WIRE TAPER BASIC METABOLIC PANEL, S/P STAT 10/18/2023 8:46 PM BEAD WIRE TAPER INFLUENZA A, B, RSV, PCR, POCT STAT 10/18/2023 8:35 PM BEAD WIRE TAPER SARS CORONAVIRUS 2, PCR RAPID, V STAT 10/18/2023 8:28 PM BEAD WIRE TAPER documented in this encounter Results * (ABNORMAL) NT-Pro B-Type Natriuretic Peptide (BNP) (10/18/2023 11:48 PM BEAD WIRE TAPER) NT-Pro BNP 589(H) <=540 pg/mL 10/19/2023 12:23 AM BEAD WIRE TAPER NPRG Comment: NT-proBNP values less than 300 [...] failure. Blood (Blood, Venous) 10/18/2023 11:48 PM BEAD WIRE TAPER 10/18/2023 11:59 PM BEAD WIRE TAPER Iam Herrera D.O. LAB BLOOD ADD-ON Performing Organization Address City/[facility]/ZIP Co de Phone Number [facility] [address] [place] [address], [place] NPRG [facility] [address] [place] [address] * ECG 12 Lead (10/18/2023 11:32 PM BEAD WIRE TAPER) Ventricular Rate ECG/Min 101 BPM MUSE NM Interval 140 ms MUSE QRSD Interval 72 ms MUSE QT Interval 326 ms MUSE QTC Interval 422 ms MUSE P Warren 58 degrees MUSE R Warren 18 degrees MUSE T Wave Warren 57 degrees MUSE 10/18/2023 11:3 2 PM BEAD WIRE TAPER 10/18/2023 11:52 PM BEAD WIRE TAPER Impressions MUSE - 10/18/2023 11:52 PM BEAD WIRE TAPER Sinus tachycardia Nonspecific T wave abnormality No previous ECGs available Reviewed by ANGELITO Allen Narrative Procedure Note Roshan East M.D., Ph.D. - 10/18/2023 IMPRESSION: Sinus tachycardia Nonspecific T wave abnormality No previous ECGs available Reviewed by ANGELITO Allen Iam Herrera D.O. ECG ORDERABLES Performing Organization Address City/[facility]/ZIP Co de Phone Number MUSE NA * (ABNORMAL) Bacterial Culture, Aerobic + Susceptibility, Urine (10/18/2023 9:14 PM BEAD WIRE TAPER) Urine Culture YEAST >100,000 cfu/mL (A) 10/20/2023 12:11 PM BEAD WIRE TAPER MKTO Comment:No further identific ation Urine (Urine, Indwelling Catheter) 10/18/2023 9:14 PM BEAD WIRE TAPER 10/19/2023 4:21 PM BEAD WIRE TAPER Comment:Specimen Source Site : Urine Iam Herrera D.O. LAB MICROBIOLOGY - G ENERAL ORDERABLES [facility] [address] [place] [address], [facility] MKTO [facility] [place] [address] [place] [address] * (ABNORMAL) Urinalysis with Microscopic: Urine, Midstream (10/18/2023 9:14 PM BEAD WIRE TAPER) Source Urine, Urine, Midstream 10/18/2023 9:29 PM BEAD WIRE TAPER NPRG Clarity Slightly Cloudy(A) Clear 10/18/2023 9:31 PM BEAD WIRE TAPER NPRG Color Yellow 10/18/2023 9:31 PM BEAD WIRE TAPER NPRG Comment: ----REFERENCE VALUE---- Colorless Yellow Alana Blood Trace(A) Negative 10/18/2023 9:31 PM BEAD WIRE TAPER NPRG Nitrite Negative Negative 10/18/2023 9:31 PM BEAD WIRE TAPER NPRG Leukocyte Esterase Small(A) Negative 10/18/2023 9:31 PM BEAD WIRE TAPER NPRG Protein Negative mg/dL 10/18/2023 9:31 PM BEAD WIRE TAPER NPRG Comment: ----REFERENCE VALUE---- Negative Trace Glucose Negative Negative mg/dL 10/18/2023 9:31 PM BEAD WIRE TAPER NPRG Ketones, QI(U) Negative Negative mg/dL 10/18/2023 9:31 PM BEAD WIRE TAPER NPRG Bilirubin Negative Negative 10/18/2023 9:31 PM BEAD WIRE TAPER NPRG pH 5.0 5.0 - 8.0 10/18/2023 9:31 PM BEAD WIRE TAPER NPRG Specific [place] 1.015 1.001 - 1.035 10/18/2023 9:31 PM BEAD WIRE TAPER NPRG Urobilinogen 0.2 0.2 - 1.0 mg/dL 10/18/2023 9:31 PM BEAD WIRE TAPER NPRG White Blood Cells >100(A) /hpf 10/18/2023 9:38 PM BEAD WIRE TAPER NPRG Comment: ----REFERENCE VALUE---- Males: 0-3 Females: 0-10 Unknown: 0-10 Red Blood Cells 3-10(A) 0 - 2 /hpf 9:38 PM BEAD WIRE TAPER NPRG Dysmorphic Red Blood Cells <=25 <=25 % 10/18/2023 9:38 PM BEAD WIRE TAPER NPRG Bacteria Present(A) None Seen 10/18/2023 9:38 PM BEAD WIRE TAPER NPRG Yeast Present(A) None Seen 10/18/2023 9:38 PM BEAD WIRE TAPER NPRG Urine (Urine, Midstream) 10/18/2023 9:14 PM BEAD WIRE TAPER 10/18/2023 9:29 PM BEAD WIRE TAPER Iam Herrera D.O. LAB URINE ORDERABLES [facility] [address] [place] [address], [facility] NPRG [facility] [address] [place] [address] * DX Chest Portable 1 View (10/18/2023 9:01 PM BEAD WIRE TAPER) Anatomical Region Laterality Modality Chest, Thoracic RST LOS, Tho racic ARZ LOS, Thoracic FLA LOS N/A Computed Radiography Impressions 10/18/2023 9:03 PM BEAD WIRE TAPER Right infrahilar consolidation suggesting pneumonia, suspect aspiration sequela. Negative for pleural effusion. Thoracolumbar instrumented postsurgical change. Narrative 10/18/2023 9:03 PM BEAD WIRE TAPER EXAM: DX CHEST PORTABLE 1 VIEW Procedure Note Bib Abel M.D. - 10/18/2023 EXAM: DX CHEST PORTABLE 1 VIEW IMPRESSION: Right infrahilar consolidation suggesting pneumonia, suspect aspirationsequela. Negative for pleural effusion. Thoracolumbar instrumentedpostsurgical change. Iam Herrera D.O. IMG DIAGNOSTIC IMAGI NG PROCEDURES * (ABNORMAL) Basic Metabolic Panel (10/18/2023 8:46 PM BEAD WIRE TAPER) Potassium, P 4.2 3.6 - 5.2 mmol/L 10/18/2023 9:14 PM BEAD WIRE TAPER NPRG Sodium, P 136 135 - 145 mmol/L 10/18/2023 9:14 PM BEAD WIRE TAPER NPRG Chloride, P 92(L) 98 - 107 mmol/L 10/18/2023 9:14 PM BEAD WIRE TAPER NPRG Bicarbonate, P 33(H) 22 - 29 mmol/L 10/18/2023 9:14 PM BEAD WIRE TAPER NPRG Anion Gap, P 11 7 - 15 10/18/2023 9:14 PM BEAD WIRE TAPER NPRG BUN (Blood Urea Nitrogen), P 20 6 - 21 mg/dL 10/18/2023 9:14 PM BEAD WIRE TAPER NPRG Creatinine 0.40(L) 0.59 - 1.04 mg/dL 10/18/2023 9:14 PM BEAD WIRE TAPER NPRG Estimated GFR (eGFR) >90 >=60 mL/min/BSA 10/18/2023 9:14 PM BEAD WIRE TAPER NPRG Comment: Estimated GFR calculated using the 2020 CKD_EPI creatinine equation. Calcium, Total, P 8.9 8.8 - 10.2 mg/dL 10/18/2023 9:14 PM BEAD WIRE TAPER NPRG Glucose, P 106 70 - 140 mg/dL 10/18/2023 9:14 PM BEAD WIRE TAPER NPRG Blood (Blood, Venous) 10/18/2023 8:46 PM BEAD WIRE TAPER 10/18/2023 8:49 PM BEAD WIRE TAPER Iam Herrera D.O. LAB BLOOD ADD-ON [facility] [address] [place] [address], [facility] NPRG [facility] [address] [place] [address] * Lactate for Sepsis with Reflex (10/18/2023 8:46 PM BEAD WIRE TAPER) Lactate, P 1.8 0.5 - 2.2 mmol/L 10/18/2023 9:12 PM BEAD WIRE TAPER NPRG Blood (Blood, Venous) 10/18/2023 8:46 PM BEAD WIRE TAPER 10/18/2023 8:49 PM BEAD WIRE TAPER Iam Herrera D.O. LAB BLOOD NON ADD-ON [facility] [address] [place] [address], [facility] [place] [address] [address] [place] [address] * Bacteria / Lucy Culture, Blood #2 (10/18/2023 8:46 PM BEAD WIRE TAPER) Bacteria/Herlinda da Culture, Blood No growth after 5 day/s of incubation. 10/23/2023 9:03 PM BEAD WIRE TAPER NPRG Blood (Blood, Peripheral Draw) 10/18/2023 8:46 PM BEAD WIRE TAPER 10/18/2023 8:49 PM BEAD WIRE TAPER Comment:Specimen Source Site : Blood Iam Herrera D.O. LAB MICROBIOLOGY - G ENERAL ORDERABLES Performing Organization Address City/[facility]/ZIP Co de Phone Number [facility] [address] [place] [address], [address] [address] * Bacteria / Lucy Culture, Blood #1 (10/18/2023 8:46 PM BEAD WIRE TAPER) Bacteria/Herlinda da Culture, Blood No growth after 5 day/s of incubation. 10/23/2023 9:03 PM BEAD WIRE TAPER NPRG Blood (Blood, Peripheral Draw) 10/18/2023 8:46 PM BEAD WIRE TAPER 10/18/2023 8:49 PM BEAD WIRE TAPER Comment:Specimen Source Site : Blood Iam Herrera D.O. LAB MICROBIOLOGY - G ENERAL ORDERABLES Performing Organization Address City/[facility]/ZIP Co de Phone Number [facility] [address] [place] [address], [address] [address] * (ABNORMAL) CBC with Differential, Blood (10/18/2023 8:46 PM BEAD WIRE TAPER) Hemoglobin 12.0 11.6 - 15.0 g/dL 10/18/2023 8:54 PM BEAD WIRE TAPER NPRG Hematocrit 39.5 35.5 - 44.9 % 10/18/2023 8:54 PM BEAD WIRE TAPER NPRG Erythrocytes 4.65 3.92 - 5.13 x10(12)/L 10/18/2023 8:54 PM BEAD WIRE TAPER NPRG MCV 84.9 78.2 - 97.9 fL 10/18/2023 8:54 PM BEAD WIRE TAPER NPRG RBC Distrib Width 19.7(H) 12.2 - 16.1 % 10/18/2023 8:54 PM BEAD WIRE TAPER NPRG Platelet Count 294 157 - 371 x10(9)/L 10/18/2023 8:54 PM BEAD WIRE TAPER NPRG Leukocytes 15.6(H) 3.4 - 9.6 x10(9)/L 10/18/2023 8:54 PM BEAD WIRE TAPER NPRG Neutrophils 10.44(H) 1.56 - 6.45 x10(9)/L 10/18/2023 8:54 PM BEAD WIRE TAPER NPRG Lymphocytes 3.66(H) 0.95 - 3.07 x10(9)/L 10/18/2023 8:54 PM BEAD WIRE TAPER NPRG Monocytes 1.45(H) 0.26 - 0.81 x10(9)/L 10/18/2023 8:54 PM BEAD WIRE TAPER NPRG Eosinophils 0.06 0.03 - 0.48 x10(9)/L 10/18/2023 8:54 PM BEAD WIRE TAPER NPRG Basophils 0.02 0.01 - 0.08 x10(9)/L 10/18/2023 8:54 PM BEAD WIRE TAPER NPRG Blood (Blood, Venous) 10/18/2023 8:46 PM BEAD WIRE TAPER 10/18/2023 8:49 PM BEAD WIRE TAPER Iam Herrera D.O. LAB BLOOD ADD-ON [facility] [address] [place] [address], [facility] NPRG [facility] [address] [place] [address] * Influenza A/B and RSV, PCR, Point of Care (10/18/2023 8:35 PM BEAD WIRE TAPER) Influenza A, POCT Negative Negative 10/18/2023 8:52 PM BEAD WIRE TAPER NPRG Influenza B, POCT Negative Negative 10/18/2023 8:52 PM BEAD WIRE TAPER NPRG Resp Syncytial Virus, POCT Negative Negative 10/18/2023 8:52 PM BEAD WIRE TAPER NPRG Swab (Nasopharynx) 10/18/2023 8:35 PM BEAD WIRE TAPER 10/18/2023 8:50 PM BEAD WIRE TAPER Iam Herrera D.O. LAB POCT ORDERABLES - DEVICE Performing Organization Address City/[facility] Co de Phone Number [facility] [address] [place] [address], [facility] NPRG [address] [address] * SARS Coronavirus 2, PCR Rapid Symptomatic (10/18/2023 8:28 PM BEAD WIRE TAPER) [facility] SARS CoV-2, PCR, Rapid, V Undetected Undetected 10/18/2023 9:11 PM BEAD WIRE TAPER NPRG Comment: ----ADDITIONAL INFORMATION---- This RT-PCR test was performed using the [employer] SARS-CoV-2 and Influenza A/B Reagent assay from [employer], which has received Emergency Use Authorization(EUA) by the U.S. Food and Drug Administration. Fact sheets for this Emergency Use Authorization (EUA) assay can be found at the following links: For Healthcare Providers: https://www.fda.gov/media/680729/download For Patients: https://www.fda.gov/media/445094/download SARS Coronavirus 2, Source, Rapid Swab, Nasopharynx 10/18/2023 8:49 PM BEAD WIRE TAPER NPRG Swab (Nasopharynx) 10/18/2023 8:28 PM BEAD WIRE TAPER 10/18/2023 8:49 PM BEAD WIRE TAPER Iam Herrera D.O. LAB MICROBIOLOGY - G ENERAL ORDERABLES Performing Organization Address [facility]/ZIP Co de Phone Number [facility] [address] [place] [address], [facility] NPRG [address] [address] documented in this encounter Visit Diagnoses Diagnosis [...] infection, community acquired Given 10/18/2023 9:46 PM BEAD WIRE TAPER 2 g doxycycline 100 mg in NaCl 0.9% IVPB (VIBRAMYCIN) 100 mg, intravenous, at 100 mL/hr, Administer over 60 Minutes, Once, On 10/18/23 at 2123, For 1 dose, Mini-Bag Plus bag, Indications: Respiratory tract infection, community acquired New Bag 10/18/2023 9:50 PM BEAD WIRE TAPER 100 mg 100 mL/hr hydrocortisone sodium succinate (PF) injection 100 mg (Solu-CORTEF) 100 mg, intravenous, Once, On 10/19/23 at 0003, For 1 dose, IV push over 30 seconds per 100 mg (For doses 500 mg or less) Given 10/19/2023 12:07 AM BEAD WIRE TAPER 100 mg NaCl 0.9 % bolus 500 mL 500 mL, intravenous, at 500 mL/hr, Administer over 1 Hours, Once, On 10/18/23 at 2028, For 1 dose New Bag 10/18/2023 8:39 PM BEAD WIRE TAPER 500 mL 500 mL/hr NaCl 0.9 % bolus 500 mL 500 mL, intravenous, at 500 mL/hr, Administer over 1 Hours, Once, On 10/19/23 at 0003, For 1 dose New Bag 10/19/2023 12:07 AM BEAD WIRE TAPER 500 mL 500 mL/hr oxyCODONE IR tablet 5 mg (ROXICODONE) 5 mg, oral, Once, On 10/18/23 at 8, For 1 dose Given 10/18/2023 9:24 PM BEAD WIRE TAPER 5 mg oxyCODONE IR tablet 5 mg (ROXICODONE) 5 mg, oral, Once, On 10/19/23 at 0030, For 1 dose Given 10/19/2023 12:33 AM BEAD WIRE TAPER 5 mg sodium chloride 0.9 % injection 3 mL 3 mL, intravenous, As needed, line care, Starting on 10/18/23 at 2025, Prior to and following infusion and between multiple consecutive infusions: sodium chloride 0.9 % injection documented in this encounter Active and Recently Administered Medications Times are shown in BEAD WIRE TAPER. Scheduled Medication Order 10/17/2023 10/18/2023 10/19/2023 [email or web address] [...] community acquired 2149 (New Bag - Provider: Freida Epps R.N.)231 (Stopped - Provider: Rosio Espinoza [...] For 1 dose 2123 (Given - Provider: oRsio Espinoza R.N.) oxyCODONE IR tablet 5 mg [...] Pending 10/18/2023 10/18/2023 10/18/2023 9 :11 PM BEAD WIRE TAPER documented as of this encounter Care Teams Chief Of Safety And Protection Relationship Specialty Start Date End Date Osiris Otero APRN, C.N.P., R.N. [address] [place] [address] PCP - General Family Medicine 09/17/23 12/08/23 documented as of this encounter
--- OUTSIDE RECORDS SUMMARY | 2024-01-17 00:07 | XMS_ITS | Encounter Summary ---
Author Name Unknown Organization [facility] Address [address] [place] [address] Care Team Providers Care Windows Software Developer Name Role Phone Shanna Mars Murcia APRN.N.Tia., R.N. Primary Care Provider Encounter Details Date Type Department Care Team (Late st Contact Info) Description 10/19/2023 10:15 AM INDEPENDENT CROP CONSULTANT Ancillary Procedure Department of Emergency Medicine Social History Tobacco Use Types Packs/Day Years Used Date Smoking Tobacco: Never Smokeless Tobacco: Never Alcohol Use Standard Drinks/Week Comments Defer 0 (1 standard drink = 0.6 oz pur e alcohol) [facility] Utilities Answer Date Recorded In the past 12 months has e electric, gas, oil, or water [employer] threatened to shut off services in your [...] your living situation today? [facility] 10/19/2023 Sex and Gender Information Value Date Recorded Sex Assigned at Not on file Gender Identity Not on file Sexual Orientation Not on file documented as of this encounter Plan of Treatment Not on file documented as of this encounter Procedures Procedure Name Priority Date/Time Associated Diagnosis Comments EMERGENCY DEPARTMENT IMAGE EXAM Routine 10/19/2023 10:09 AM INDEPENDENT CROP CONSULTANT documented in this encounter Results * Coccyx-Emergency Department Image Exam (10/19/2023 10:09 AM INDEPENDENT CROP CONSULTANT) 10/19/2023 10:0 7 AM INDEPENDENT CROP CONSULTANT Narrative IIMS - 10/19/2023 10:09 AM INDEPENDENT CROP CONSULTANT This order has been created and auto-finalized to support the import of images acquired without order. The clinical documentation to support these images can be found on the encounter that produced images. Provider Not In System IMG NON RAD IMAGI NG PROCEDURES IIMS NA documented in this encounter Visit Diagnoses Not on filedocumented in this encounter Care Teams Windows Software Developer Relationship Specialty Start Date End Date Osiris Otero APRN, C.N.P., R.N. [address] [place] [phone] PCP - General Family Medicine 09/17/23 12/08/23 documented as of this encounter
--- OUTSIDE RECORDS SUMMARY | 2024-01-17 00:07 | XMS_ITS | Encounter Summary ---
Author Name Unknown Organization [facility] Address [address] [place] [address] Care Team Providers Care Acid Concentrator Name Role Phone Osiris Otero APRN, C.N.P., R.N. Primary Care Provider Encounter Details Date Type Department Care Team (Late st Contact Info) Description 10/17/2023 Orders Only [facility] [place] [address] [place] [phone] Osiris Otero APRN, C.N.P., R.N. [address] [place] [phone] Social History Tobacco Use Types Packs/Day Years Used Date Smoking Tobacco: Never Smokeless Tobacco: Never Alcohol Use Standard Drinks/Week Comments Defer 0 (1 standard drink = 0.6 oz pur e alcohol) [facility] Utilities Answer Date Recorded In the past [address] [facility] [employer], gas, oil, or water [employer] threatened to shut off services in your [...] living situation today? I have a [facility] place to live 10/19/2023 Sex and [...] Pending 10/18/2023 10/18/2023 10/18/2023 9 :11 PM HARBOR ENGINEER documented as of this encounter Care Teams Acid Concentrator Relationship Specialty Start Date End Date Osiris Otero APRN, C.N.P., R.N. [address] [place] [address] PCP - General Family Medicine 09/17/23 12/08/23 documented as of this encounter
--- OUTSIDE RECORDS SUMMARY | 2024-01-17 00:07 | XMS_ITS | Encounter Summary ---
Author Name Unknown Organization [facility] Address [address] [place] [address] Care Team Providers Care Welding Machine Operator Ultrasonic Name Role Phone Shanna Mars Murcia APRN.N.Tia., R.N. Primary Care Provider Encounter Details Date Type Department Care Team (Late st Contact Info) Description 10/19/2023 10:10 AM AUTOMATIC PINSETTER MECHANIC Ancillary Procedure Department of Emergency Medicine Social History Tobacco Use Types Packs/Day Years Used Date Smoking Tobacco: Never Smokeless Tobacco: Never Alcohol Use Standard Drinks/Week Comments Defer 0 (1 standard drink = 0.6 oz pur e alcohol) [facility] Utilities Answer Date Recorded In the past 12 months has e electric, gas, oil, or water [employer] threatened to shut off services in your [...] DEPARTMENT IMAGE EXAM Routine 10/19/2023 10:09 AM AUTOMATIC PINSETTER MECHANIC documented in this encounter Results * Buttock-Emergency Department Image Exam (10/19/2023 10:09 AM AUTOMATIC PINSETTER MECHANIC) 10/19/2023 10:0 7 AM AUTOMATIC PINSETTER MECHANIC Narrative IIMS - 10/19/2023 10:09 AM AUTOMATIC PINSETTER MECHANIC This order has been created and auto-finalized to support the import of images acquired without order. The clinical documentation to support these images can be found on the encounter that produced images. Provider Not In System IMG NON RAD IMAGI NG PROCEDURES IIMS NA documented in this encounter Visit Diagnoses Not on filedocumented in this encounter Care Teams Welding Machine Operator Ultrasonic Relationship Specialty Start Date End Date Osiris Otero APRN, C.N.P., R.N. [address] [place] [phone] PCP - General Family Medicine 09/17/23 12/08/23 documented as of this encounter
--- OUTSIDE RECORDS SUMMARY | 2024-01-17 00:07 | XMS_ITS | Encounter Summary ---
Author Name Unknown Organization [facility] Address [address] [place] [address] Care Team Providers Care Recruitment Director Name Role Phone Osiris Otero APRN, C.N.Tia., R.N. Primary Care Provider Encounter Details Date Type Department Care Team (Late st Contact Info) Description 10/19/2023 9:50 AM DOCUMENT MANAGEMENT TECHNICIAN Ancillary Procedure Department of Emergency Medicine Social History Tobacco Use Types Packs/Day Years Used Date Smoking Tobacco: Never Smokeless Tobacco: Never Alcohol Use Standard Drinks/Week Comments Defer 0 (1 standard drink = 0.6 oz pur e alcohol) [facility] Utilities Answer Date Recorded In the past 12 months has e electric, gas, oil, or water [employer] threatened to shut off services in your [...] your living situation today? I have a [facility] place to live 10/19/2023 Sex and Gender Information Value Date Recorded Sex Assigned at Not on file Gender Identity Not on file Sexual Orientation Not on file documented as of this encounter Plan of Treatment Not on file documented as of this encounter Procedures Procedure Name Priority Date/Time Associated Diagnosis Comments EMERGENCY DEPARTMENT IMAGE EXAM Routine 10/19/2023 9:50 AM DOCUMENT MANAGEMENT TECHNICIAN documented in this encounter Results * Heel-Emergency Department Image Exam (10/19/2023 9:50 AM DOCUMENT MANAGEMENT TECHNICIAN) 10/19/2023 9:48 AM DOCUMENT MANAGEMENT TECHNICIAN Narrative IIMS - 10/19/2023 9:50 AM DOCUMENT MANAGEMENT TECHNICIAN This order has been created and auto-finalized to support the import of images acquired without order. The clinical documentation to support these images can be found on the encounter that produced images. Provider Not In System IMG NON RAD IMAGI NG PROCEDURES IIMS NA documented in this encounter Visit Diagnoses Not on filedocumented in this encounter Care Teams Recruitment Director Relationship Specialty Start Date End Date Osiris Otero APRN, C.N.P., R.N. [address] [place] [phone] PCP - General Family Medicine 09/17/23 12/08/23 documented as of this encounter
--- OUTSIDE RECORDS SUMMARY | 2024-01-17 00:07 | XMS_ITS | Encounter Summary ---
Author Name Unknown Organization [facility] Address [address] [place] [address] Care Team Providers Care Memory Care Program Resident Name Role Phone Shanna Mars Murcia APRN.N.Tia., R.N. Primary Care Provider Encounter Details Date Type Department Care Team (Late st Contact Info) Description 10/19/2023 10:25 AM RAILROAD CAR CHECKER Ancillary Procedure Department of Emergency Medicine Social History Tobacco Use Types Packs/Day Years Used Date Smoking Tobacco: Never Smokeless Tobacco: Never Alcohol Use Standard Drinks/Week Comments Defer 0 (1 standard drink = 0.6 oz pur e alcohol) [facility] Utilities Answer Date Recorded In the past 12 months has e electric, gas, oil, or water [employer] threatened to shut off services in your [...] situation today? I have a [facility] place to live 10/19/2023 Sex and Gender Information Value Date Recorded Sex Assigned at Not on file Gender Identity Not on file Sexual Orientation Not on file documented as of this encounter Plan of Treatment Not on file documented as of this encounter Procedures Procedure Name Priority Date/Time Associated Diagnosis Comments EMERGENCY DEPARTMENT IMAGE EXAM Routine 10/19/2023 10:25 AM RAILROAD CAR CHECKER documented in this encounter Results * Anus-Emergency Department Image Exam (10/19/2023 10:25 AM RAILROAD CAR CHECKER) 10/19/2023 10:2 3 AM RAILROAD CAR CHECKER Narrative IIMS - 10/19/2023 10:26 AM RAILROAD CAR CHECKER This order has been created and auto-finalized to support the import of images acquired without order. The clinical documentation to support these images can be found on the encounter that produced images. Provider Not In System IMG NON RAD IMAGI NG PROCEDURES IIMS NA documented in this encounter Visit Diagnoses Not on filedocumented in this encounter Care Teams Memory Care Program Resident Relationship Specialty Start Date End Date Osiris Otero APRN, C.N.P., R.N. [address] [place] [address] PCP - General Family Medicine 09/17/23 12/08/23 documented as of this encounter
--- OUTSIDE RECORDS SUMMARY | 2024-01-17 00:08 | XMS_ITS | Encounter Summary ---
Author Name Unknown Organization [facility] Address [address] [place] [address] Care Team Providers Care Melter Supervisor Name Role Phone Osiris Otero APRN, C.N.P., R.N. Primary Care Provider Encounter Details Date Type Department Care Team (Latest Contact Info) Description 10/10/2023 11:20 AM CELL TUBER HAND - 10/10/2023 11:59 PM [facility] Hospital Encounter Department of Laboratory Medicine in [place], [place] [address] [place] [address] Osiris Otero APRN, C.N.P., R.N. 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 lilliana Pain/Nonacute Pain Take 1 tablet (5 [...] PCR RAPID, V Routine 10/10/2023 11:20 AM CELL TUBER HAND INFLUENZA A, B, RSV, PCR, POCT Routine 10/10/2023 11:20 AM CELL TUBER HAND Cough Unspecified Type documented in this encounter Results * SARS Coronavirus 2, PCR Rapid (10/10/2023 11:20 AM CELL TUBER HAND) SARS CoV-2, PCR, Rapid, V Undetected Undetected 10/10/2023 1:07 PM CELL TUBER HAND NPRG Comment: ----ADDITIONAL INFORMATION---- This RT-PCR test was performed using the [employer] SARS-CoV-2 and Influenza A/B Reagent assay from [facility], which has received Emergency Use Authorization(EUA) by the U.S. Food and Drug Administration. Fact sheets for this Emergency Use Authorization (EUA) assay can be found at the following links: For Healthcare Providers: https://www.fda.gov/media/322077/download For Patients: https://www.fda.gov/media/308296/download SARS Coronavirus 2, Source, Rapid Swab, Nasopharynx 10/10/2023 12:39 PM CELL TUBER HAND NPRG 10/10/2023 11:2 0 AM CELL TUBER HAND 10/10/2023 12:39 PM CELL TUBER HAND Osiris Otero APRN, C.N.P., R.N. LAB M ICROBIOLOGY - GENERAL ORDERABLES [facility] [address] [place] [address], [address] [address] * Influenza A/B and RSV, PCR, Point of Care (10/10/2023 11:20 AM CELL TUBER HAND) Influenza A, POCT Negative Negative 10/10/2023 1:06 PM CELL TUBER HAND NPRG Influenza B, POCT Negative Negative 10/10/2023 1:06 PM CELL TUBER HAND NPRG Resp Syncytial Virus, POCT Negative Negative 10/10/2023 1:06 PM CELL TUBER HAND NPRG Swab (Nasopharynx) 10/10/2023 11:20 AM CELL TUBER HAND 10/10/2023 12:39 PM CELL TUBER HAND Osiris Otero APRN, C.N.P., R.N. LAB P OCT ORDERABLES - DEVICE [facility]- [address] [address], [address] [address] documented in this encounter Visit Diagnoses Diagnosis Cough Unspecified Type documented in this encounter Additional Health Concerns Infection Onset Date Last Indicated Resolved Time COVID19 Pending 10/10/2023 10/10/2023 10/10/2023 1 :08 PM CELL TUBER HAND documented as of this encounter Care Teams Melter Supervisor Relationship Specialty Start Date End Date Osiris Otero APRN, C.N.P., R.N. [address] [place] [address] PCP - General Family Medicine 09/17/23 12/08/23 documented as of this encounter
--- OUTSIDE RECORDS SUMMARY | 2024-01-17 00:08 | XMS_ITS | Encounter Summary ---
Author Name Unknown Organization [facility] Address [address] [place] [address] Care Team Providers Care Health Insurance Agent Name Role Phone Osiris Otero APRN, C.N.P., R.N. Primary Care Provider Reason for Visit * Reason Onset Date Comments Med Question 10/16/2023 Clarification ox ycodone Encounter Details Date Type Department Care Team (Latest Contact Info) Description 10/16/2023 Clinical Communication Senior Services in [place] [address] [place] [address] Osiris Otero APRN, C.N.P., R.N. [address] [place] [phone] Med Question (Clarification oxycodone) Social History Tobacco [...] your living situation today? I have a [facility] place to live 10/19/2023 Sex and Gender Information Value Date Recorded Sex Assigned at Not on file Gender Identity Not on file Sexual Orientation Not on file documented as of this encounter Miscellaneous Notes * Telephone Encounter - Osiris Otero APRN, C.N.P., R.N. - 10/17/2023 11:39 AM CST Sent new script for 5 mg four times daily prn UNT EXECUTIVE METALWORKING * Telephone Encounter - Haven Saxena R.N. - 10/16/2023 12:49 PM ACCOUNT EXECUTIVE METALWORKING Called Elvi, she stated that on Rx instructions they do no have dose amount (5mg vs 10mg?, etc.) melonie given four times a day as needed. Please review and update UNT EXECUTIVE METALWORKING * Telephone Encounter - Shital Parish - 10/16/2023 12:22 PM CST MEDICATION QUESTION What is the patient's question? Recent changes Medication name/dose: oxyCODONE (ROXICODONE) 5 mg immediate release table What pharmacy are you using today? [facility] [address] [address] Additional comments (if any): Elvi from pharmacy is needing a clarification on the medication. Callback [phone] Special calling instructions: Ok to leave detailed message on voicemail? yes Portal: N/A UNT EXECUTIVE METALWORKING documented in this encounter Plan of Treatment Not on file documented as of this encounter Visit Diagnoses Not on filedocumented in this encounter Additional Health Concerns Infection Onset Date Last Indicated Resolved Time COVID19 Pending 10/18/2023 10/18/2023 10/18/2023 9 :11 PM ACCOUNT EXECUTIVE METALWORKING documented as of this encounter Care Teams Health Insurance Agent Relationship Specialty Start Date End Date Osiris Otero APRN, C.N.P., R.N. [address] [place] [address] PCP - General Family Medicine 09/17/23 12/08/23 documented as of this encounter
--- OUTSIDE RECORDS SUMMARY | 2024-01-17 00:08 | XMS_ITS | Encounter Summary ---
Author Name Unknown Organization [facility] Address [address] [place] [address] Care Team Providers Care Licensed Midwife Name Role Phone Osiris Otero APRN, C.N.P., R.N. Primary Care Provider Encounter Details Date Type Department Care Team (Latest Contact Info) Description 10/14/2023 1:45 AM REHABILITATION THERAPY AIDE - 10/14/2023 11:59 PM [facility] Hospital Encounter Department of Laboratory Medicine in [place], [place] [address] [place] [address] Osiris Otero APRN, C.N.P., R.N. [address] [place] [phone] Edema Localized Discharge Disposition: Home or Self [...] METABOLIC PANEL, S/P Routine 10/14/2023 7:10 AM REHABILITATION THERAPY AIDE Edema Localized documented in this encounter Results * (ABNORMAL) Basic Metabolic Panel (10/14/2023 7:10 AM REHABILITATION THERAPY AIDE) Potassium, P 3.3(L) 3.6 - 5.2 mmol/L 10/14/2023 9:03 AM REHABILITATION THERAPY AIDE NPRG Sodium, P 143 135 - 145 mmol/L 10/14/2023 9:03 AM REHABILITATION THERAPY AIDE NPRG Chloride, P 99 98 - 107 mmol/L 10/14/2023 9:03 AM REHABILITATION THERAPY AIDE NPRG Bicarbonate, P 32(H) 22 - 29 mmol/L 10/14/2023 9:03 AM REHABILITATION THERAPY AIDE NPRG Anion Gap, P 12 7 - 15 10/14/2023 9:03 AM REHABILITATION THERAPY AIDE NPRG BUN (Blood Urea Nitrogen), P 16 6 - 21 mg/dL 10/14/2023 9:03 AM REHABILITATION THERAPY AIDE NPRG Creatinine 0.31(L) 0.59 - 1.04 mg/dL 10/14/2023 9:03 AM REHABILITATION THERAPY AIDE NPRG Estimated GFR (eGFR) >90 >=60 mL/min/BSA 10/14/2023 9:03 AM REHABILITATION THERAPY AIDE NPRG Comment: Estimated GFR calculated using the 2020 CKD_EPI creatinine equation. Calcium, Total, P 9.2 8.8 - 10.2 mg/dL 10/14/2023 9:03 AM REHABILITATION THERAPY AIDE NPRG Glucose, P 83 70 - 140 mg/dL 10/14/2023 9:03 AM REHABILITATION THERAPY AIDE NPRG Blood (Blood, Venous) 10/14/2023 7:10 AM REHABILITATION THERAPY AIDE 10/14/2023 8:36 AM REHABILITATION THERAPY AIDE Osiris Otero APRN, Mars.N.P., R.N. LAB B LOOD ADD-ON [facility] [address] [place] [address], [facility] NPRG [facility] [address] [place] [address] documented in this encounter Visit Diagnoses Diagnosis Edema Localized documented in this encounter Care Teams Licensed Midwife Relationship Specialty Start Date End Date Osiris Otero APRN, C.N.P., R.N. [address] [place] [address] PCP - General Family Medicine 09/17/23 12/08/23 documented as of this encounter
--- OUTSIDE RECORDS SUMMARY | 2024-01-17 00:08 | XMS_ITS | Encounter Summary ---
Author Name Unknown Organization [facility] Address [address] [place] [address] Care Team Providers Care Photographic Process Screen Maker Name Role Phone Osiris Otero APRN, C.N.P., R.N. Primary Care Provider Encounter Details Date Type Department Care Team (Late st Contact Info) Description 10/10/2023 Orders Only Senior Services in [place] [address] [place] [phone] Osiris Otero APRN, C.N.P., R.N. [address] [place] [address] Social History Tobacco Use Types Packs/Day Years [...] Pending 10/10/2023 10/10/2023 10/10/2023 1 :08 PM LAMINATE FLOOR INSTALLER documented as of this encounter Care Teams Photographic Process Screen Maker Relationship Specialty Start Date End Date Osiris Otero APRN, C.N.P., R.N. [address] [place] [address] PCP - General Family Medicine 09/17/23 12/08/23 documented as of this encounter
--- OUTSIDE RECORDS SUMMARY | 2024-01-17 00:08 | XMS_ITS | Encounter Summary ---
Author Name Unknown Organization [facility] Address [address] [place] [address] Care Team Providers Care Automobile Upholstery Trim Installer Name Role Phone Osiris Otero APRN, C.N.P., R.N. Primary Care Provider Encounter Details Date Type Department Care Team (Latest Contact Info) Description 10/14/2023 11:30 AM MOMD TEACHER External Outreach Senior Services in [place] [address] [place] [phone] Osiris Otero APRN, C.N.P., R.N. [address] [place] [phone] Cough Acute (Primary Dx); Paraplegia (HCC); Arthritis [...] Comments Blood Pressure 128/82 10/14/2023 7:48 AM MOMD TEACHER Pulse 99 10/14/2023 7:48 AM MOMD TEACHER Temperature 36.2 ??C (97.2 ??F) 10/14/2023 7:48 AM CS T Respiratory Rate 18 10/14/2023 7:48 AM MOMD TEACHER Oxygen Saturation 93% 10/14/2023 7:48 AM MOMD TEACHER Inhaled Oxygen Concentration - - Weight 62.1 kg (136 lb 12.8 oz) 10/14/2023 7:48 AM MOMD TEACHER Height - - Body Mass Index - - documented in this encounter Progress Notes * Osiris Otero, AMIRAH, C.N.P., R.N. - 10/14/2023 11:30 AM CST CHIEF COMPLAINT / REASON FOR VISIT The resident is being seen at [place], [place] for Follow up Visit Visit Type: In Person Face-to- Face visit SUBJECTIVE HISTORY OF PRESENT ILLNESS Obtained from Patient, Nursing, and SBAR: Patient was hospitalized at [facility] from 08/28/2023 through 09/17/2023, she has a [...] obstructive sleep apnea. She is followed by [facility] wound care provider. Patient is seen in [...] Any additional supporting information is noted below. TEACHER documented in this encounter Plan of Treatment Not on file documented as of this encounter Visit Diagnoses Diagnosis Cough Acute- Primary Paraplegia (HCC) Arthritis Rheumatoid (HCC) Acute On Chronic Diastolic (Congestive) Heart Failure (HCC) Atrial Fibrillation Unspecified (HCC) Other Adrenocortical Insufficiency (HCC) documented in this encounter Care Teams Automobile Upholstery Trim Installer Relationship Specialty Start Date End Date Osiris Otero APRN, Mars.N.P., R.N. [address] [place] [address] PCP - General Family Medicine 09/17/23 12/08/23 documented as of this encounter
--- OUTSIDE RECORDS SUMMARY | 2024-01-17 00:08 | XMS_ITS | Encounter Summary ---
Author Name Unknown Organization [facility] Address [address] [place] [address] Care Team Providers Care Crosscutter Rolled Glass Name Role Phone ShannaFransisca lopezOsirisdilcia Doe APRN, C.N.P., R.N. Primary Care Provider Encounter Details Date Type Department Care Team (Late st Contact Info) Description 10/13/2023 Clinical Communication Senior Services in [place] [address] [place] [address] Leatha Palacios APRN, C.N.P. [address] [place] [address] Social History Tobacco Use Types Packs/Day Years Used Date Smoking Tobacco: Never Smokeless Tobacco: Never Alcohol Use Standard Drinks/Week Comments Defer 0 (1 standard drink = 0.6 oz pur e alcohol) [facility] Utilities Answer Date Recorded In the past 12 months has [employer], gas, oil, or water [employer] threatened to shut off services in your [...] APRN, C.N.P. - 10/13/2023 1:54 PM CST snf called with report that patient is coughing [...] doses. provider to re eval tomorrow. Call ironworker wire fence erector provider if condition changes. ETIC TECHNICIAN documented in this encounter Plan of Treatment Not on file documented as of this encounter Visit Diagnoses Not on filedocumented in this encounter Additional Health Concerns Infection Onset Date Last Indicated Resolved Time COVID19 Pending 10/18/2023 10/18/2023 10/18/2023 9 :11 PM DIETETIC TECHNICIAN documented as of this encounter Care Teams Crosscutter Rolled Glass Relationship Specialty Start Date End Date Osiris Otero APRN, C.N.P., R.N. [address] [place] [address] PCP - General Family Medicine 09/17/23 12/08/23 documented as of this encounter
--- OUTSIDE RECORDS SUMMARY | 2024-01-17 00:08 | XMS_ITS | Encounter Summary ---
Author Name Unknown Organization [facility] Address [address] [place] [address] Care Team Providers Care Bulking Machine Operator Name Role Phone Osiris Otero APRN, C.N.P., R.N. Primary Care Provider Encounter Details Date Type Department Care Team (Latest Contact Info) Description 10/10/2023 8:30 AM SALES SPECIALIST - 10/10/2023 11:19 AM [facility] Hospital Encounter Department of Laboratory Medicine in [place], [place] [address] [place] [address] Osiris Otero APRN, C.N.P., R.N. [address] [place] [phone] Cough Unspecified Type Discharge Disposition: Home or [...] 11/07/2023 oxyCODONE (ROXICODONE) 5 mg immediate release tabletIndications:Hand Nailer lilliana Pain/Nonacute Pain Take 1 tablet (5 [...] Comments MORPHOLOGY EVALUATION Routine 10/10/2023 11:20 AM SALES SPECIALIST CBC WITH DIFFERENTIAL, B Routine 10/10/2023 11:20 AM SALES SPECIALIST Cough Unspecified Type documented in this encounter Results * (ABNORMAL) Morphology Evaluation (10/10/2023 11:20 AM SALES SPECIALIST) RBC Morphology See Specific Findings 10/10/2023 1:04 PM SALES SPECIALIST NPRG PLT Morphology Normal 10/10/2023 1:04 PM SALES SPECIALIST NPRG PLT Estimate Adequate Adequate 10/10/2023 1:04 PM SALES SPECIALIST NPRG Anisocytosis Moderate(A) 10/10/2023 1:04 PM SALES SPECIALIST NPRG Reactive/Atypica l Lymphocytes Present(A) Not Seen 10/10/2023 1:04 PM SALES SPECIALIST NPRG Blood 10/10/2023 11:2 0 AM SALES SPECIALIST 10/10/2023 12:40 PM SALES SPECIALIST Osiris Otero APRN, C.N.P., R.N. LAB B LOOD ADD-ON [facility] [address] [place] [address], [facility] NPRG [facility] [address] [place] [address] * (ABNORMAL) CBC with Differential, Blood (10/10/2023 11:20 AM SALES SPECIALIST) Hemoglobin 12.0 11.6 - 15.0 g/dL 10/10/2023 1:04 PM SALES SPECIALIST NPRG Hematocrit 40.9 35.5 - 44.9 % 10/10/2023 1:04 PM SALES SPECIALIST NPRG Erythrocytes 4.64 3.92 - 5.13 x10(12)/L 10/10/2023 1:04 PM SALES SPECIALIST NPRG MCV 88.1 78.2 - 97.9 fL 10/10/2023 1:04 PM SALES SPECIALIST NPRG RBC Distrib Width 18.9(H) 12.2 - 16.1 % 10/10/2023 1:04 PM SALES SPECIALIST NPRG Platelet Count 310 157 - 371 x10(9)/L 10/10/2023 1:04 PM SALES SPECIALIST NPRG Leukocytes 19.1(H) 3.4 - 9.6 x10(9)/L 10/10/2023 1:04 PM SALES SPECIALIST NPRG Neutrophils 15.39(H) 1.56 - 6.45 x10(9)/L 10/10/2023 1:04 PM SALES SPECIALIST NPRG Lymphocytes 2.97 0.95 - 3.07 x10(9)/L 10/10/2023 1:04 PM SALES SPECIALIST NPRG Monocytes 0.61 0.26 - 0.81 x10(9)/L 10/10/2023 1:04 PM SALES SPECIALIST NPRG Eosinophils 0.07 0.03 - 0.48 x10(9)/L 10/10/2023 1:04 PM SALES SPECIALIST NPRG Basophils 0.02 0.01 - 0.08 x10(9)/L 10/10/2023 1:04 PM SALES SPECIALIST NPRG Blood (Blood, Venous) 10/10/2023 11:20 AM SALES SPECIALIST 10/10/2023 12:40 PM SALES SPECIALIST Osiris Otero APRN, C.N.P., R.N. LAB B LOOD ADD-ON [facility] [address] [place] [address], [facility] NPRG [facility] [address] [place] [address] documented in this encounter Visit Diagnoses Diagnosis Cough Unspecified Type documented in this encounter Care Teams Bulking Machine Operator Relationship Specialty Start Date End Date Osiris Otero APRN, C.N.P., R.N. [address] [place] [address] PCP - General Family Medicine 09/17/23 12/08/23 documented as of this encounter
--- OUTSIDE RECORDS SUMMARY | 2024-01-17 00:08 | XMS_ITS | Encounter Summary ---
Author Name Unknown Organization [facility] Address [address] [place] [address] Care Team Providers Care It Associate Name Role Phone Osiris tOero APRN, C.N.P., R.N. Primary Care Provider Encounter Details Date Type Department Care Team (Late st Contact Info) Description 10/14/2023 Orders Only Senior Services in [place] [address] [place] [phone] Osiris Otero APRN, C.N.P., R.N. [address] [place] [phone] Social History Tobacco Use Types Packs/Day Years [...] filedocumented in this encounter Care Teams It Associate Relationship Specialty Start Date End Date Osiris Otero APRN, C.N.P., R.N. [address] [place] [address] PCP - General Family Medicine 09/17/23 12/08/23 documented as of this encounter
--- OUTSIDE RECORDS SUMMARY | 2024-01-17 00:08 | XMS_ITS | Encounter Summary ---
Author Name Unknown Organization [facility] Address [address] [place] [address] Care Team Providers Care Abstract Checker Name Role Phone Osiris Otero APRN, C.N.P., R.N. Primary Care Provider Encounter Details Date Type Department Care Team (Latest Contact Info) Description 10/14/2023 1:45 AM BUDDER - 10/14/2023 11:59 PM [facility] Hospital Encounter Department of Laboratory Medicine in [place], [place] [address] [place] [address] Osiris Otero APRN, C.N.P., R.N. [address] [place] [phone] Leukocytosis Discharge Disposition: Home or Self Care [...] Comments MORPHOLOGY EVALUATION Routine 10/14/2023 7:10 AM BUDDER CBC WITH DIFFERENTIAL, B Routine 10/14/2023 7:10 AM BUDDER Leukocytosis documented in this encounter Results * (ABNORMAL) Morphology Evaluation (10/14/2023 7:10 AM BUDDER) RBC Morphology See Specific Findings 10/14/2023 9:26 AM BUDDER NPRG PLT Morphology Normal 10/14/2023 9:26 AM BUDDER NPRG PLT Estimate Adequate Adequate 10/14/2023 9:26 AM BUDDER NPRG Anisocytosis Moderate(A) 10/14/2023 9:26 AM BUDDER NPRG Reactive/Atypica l Lymphocytes Present(A) Not Seen 10/14/2023 9:26 AM BUDDER NPRG Blood 10/14/2023 7:10 AM BUDDER 10/14/2023 8:39 AM BUDDER Osiris Otero APRN, C.N.P., R.N. LAB B LOOD ADD-ON [facility] [address] [place] [address], [facility] NPRG [place] [address] [place] [address] * (ABNORMAL) CBC with Differential, Blood (10/14/2023 7:10 AM BUDDER) Hemoglobin 11.8 11.6 - 15.0 g/dL 10/14/2023 9:26 AM BUDDER NPRG Hematocrit 39.8 35.5 - 44.9 % 10/14/2023 9:26 AM BUDDER NPRG Erythrocytes 4.56 3.92 - 5.13 x10(12)/L 10/14/2023 9:26 AM BUDDER NPRG MCV 87.3 78.2 - 97.9 fL 10/14/2023 9:26 AM BUDDER NPRG RBC Distrib Width 18.9(H) 12.2 - 16.1 % 10/14/2023 9:26 AM BUDDER NPRG Platelet Count 322 157 - 371 x10(9)/L 10/14/2023 9:26 AM BUDDER NPRG Leukocytes 15.4(H) 3.4 - 9.6 x10(9)/L 10/14/2023 9:26 AM BUDDER NPRG Neutrophils 7.13(H) 1.56 - 6.45 x10(9)/L 10/14/2023 9:26 AM BUDDER NPRG Lymphocytes 6.76(H) 0.95 - 3.07 x10(9)/L 10/14/2023 9:26 AM BUDDER NPRG Monocytes 1.30(H) 0.26 - 0.81 x10(9)/L 10/14/2023 9:26 AM BUDDER NPRG Eosinophils 0.17 0.03 - 0.48 x10(9)/L 10/14/2023 9:26 AM BUDDER NPRG Basophils 0.02 0.01 - 0.08 x10(9)/L 10/14/2023 9:26 AM BUDDER NPRG Blood (Blood, Venous) 10/14/2023 7:10 AM BUDDER 10/14/2023 8:39 AM BUDDER Osiris Otero APRN, C.N.P., R.N. LAB B LOOD ADD-ON [facility] [address] [place] [address], [facility] NPRG [facility] [address] [place] [address] documented in this encounter Visit Diagnoses Diagnosis Leukocytosis documented in this encounter Care Teams Abstract Checker Relationship Specialty Start Date End Date Osiris Otero APRN, C.N.P., R.N. [address] [place] [address] PCP - General Family Medicine 09/17/23 12/08/23 documented as of this encounter
--- OUTSIDE RECORDS SUMMARY | 2024-01-17 00:09 | XMS_ITS | Clinical Summary ---
Author Name Unknown Organization [facility] Address [address], [place] [address] Care Team Providers Care Gang Supervisor Pipe Lines Name Role Phone Flo Mckeon MD Primary Care Provider + [phone] Source Comments You are receiving this document [...] for each transition of care or referral. [facility] Medications Medication Sig Dispensed Refills Start Date End Date Status acetaminophen (TYLENOL ARTHRITIS) 650 MG controlled release tablet as needed Active furosemide (LASIX) 20 MG tablet Daily 06/11/2021 Active diphenhydrAMINE-APAP 25-500 MG tablet Bedtime as needed A ctive predniSONE (DELTASONE) 5 MG tablet 10 mg daily. 06/11/2021 Active aspirin EC 81 MG enteric coated tablet Daily Act job pseudoephedrine ([id number]) 120 MG 12 hour release tablet Daily [...] Negative (Non Reactive) 06/28/2021 7:52 PM CDT [facility] Comment:Antibodies to HCV no t detected. Does not exclude the possiblity of exposure to HCV. Blood Venipuncture / Unknown 06/28/2021 2:27 PM CDT 06/28/2021 2:28 PM CDT Lorenza Q Black DO LAB_1 [facility] [address] [place], [place] [id number] [place] [address] from Last 3 Months or Most Recently Relevant to Health Maintenance Care Teams Gang Supervisor Pipe Lines Relationship Specialty Start Date End Date Flo Mckeon MD [address] [place] [address] PCP - General 06/21/21
--- OUTSIDE RECORDS SUMMARY | 2024-01-17 00:09 | XMS_ITS | Encounter Summary ---
Author Name Unknown Organization [facility] Address [address] [place] [address] Care Team Providers Care Quarter Backer Name Role Phone ShannaFransisca lopezOsirisdilcia Doe APRN, C.N.P., R.N. Primary Care Provider Encounter Details Date Type Department Care Team (Latest Contact Info) Description 10/10/2023 2:00 PM DIRECTOR OF PROFESSIONAL SERVICES External Outreach [facility] [place] [address] [place] [address] Fernando Renee M.D. [address] [place] [address] Paraplegia (HCC) (Primary Dx); Other Adrenocortical Insufficiency (HCC); Neurogenic Bladder; Hypertension Essential Primary; Edema Localized; Diarrhea; Corticosteroid Treatment Principal Clerk Systemic; Benign Neoplasm Colon; Atrial Fibrillation Unspecified [...] Comments Blood Pressure 119/67 10/10/2023 8:19 AM DIRECTOR OF PROFESSIONAL SERVICES Pulse 86 10/10/2023 8:19 AM DIRECTOR OF PROFESSIONAL SERVICES Temperature 36.8 ??C (98.2 ??F) 10/10/2023 8:19 AM CS T Respiratory Rate 18 10/10/2023 8:19 AM DIRECTOR OF PROFESSIONAL SERVICES Oxygen Saturation 97% 10/10/2023 8:19 AM DIRECTOR OF PROFESSIONAL SERVICES Inhaled Oxygen Concentration - - Weight 60.2 kg (132 lb 11.2 oz) 10/10/2023 8:19 AM DIRECTOR OF PROFESSIONAL SERVICES Height - - Body Mass Index - - documented in this encounter Progress Notes * Fernando Renee M.D. - 10/10/2023 2:00 PM CST SUBJECTIVE CHIEF COMPLAINT / REASON FOR VISIT I am asked to see Prerna, for a New Admission visit. Visit Type: In Person Face-to- Face visit HISTORY OF PRESENT ILLNESS Prerna is a 77 y.o. female who currently resides at [facility] in [place], [place]. Obtained from Patient and SBAR: This 77-year-old female presented to our facility following treatment for perirectal abscess. Patient was hospitalized at [facility] from 08/28/2023 through 09/17/2023, she has [...] sleep apnea. She is followed by [facility] cent[facility] wound care provider. Patient is seen in her room. She has developed cough over the last couple days with some shortness of breath. No known fevers or chills. She had developed diarrhea after her antibiotics. She was placed on cholestyramine in the [facility]. Now she states that she [...] 12. Hypertension Essential Primary 13. Corticosteroid Treatment Intermediate Systemic 14. Paraplegia (HCC) - Primary I [...] was negative on 09/20/2023. #7 Corticosteroid Treatment Intermediate Systemic Prednisone 10 mg daily #8 Benign Neoplasm Colon I do not have any updated records on this from [place] #9 Atrial Fibrillation Unspecified (HCC) Rate controlled [...] and will follow-up with general surgery in [place]. [facility]. Her breathing is worse today and is concerning for infection. Chest x-ray, viral panel, and CBC arepending. Will restart her cholestyramine at 1 dose daily. She can also take loperamide as needed for loose stools. 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 [address] [place] [address] PCP - General Family Medicine 09/17/23 12/08/23 documented as of this encounter
--- OUTSIDE RECORDS SUMMARY | 2024-01-17 00:09 | XMS_ITS | Continuity of Care Document ---
Author Name Unknown Organization [facility] Address [address] [place] [address] Phone Care Team Providers Care Recreation Manager Name Role Phone Susan Guerrero Unavailable Unavail [...] Available - Active Procedures Procedure Date Office/Outpatient Visit,[facility] 2013 Advance Directives Directive Yes / No Effective Date File Name No Information Encounters Encounter Description Practice Location Reason(s) For Visit Diagnoses Date Provider Providers Copied on Encounter [facility], [address], [place], [place], [id number], [place] tel:[phone] [facility] No Information 6 Pandiscio Susan. [facility], [address] [place] [address], [address], [place], [place], [id number], [place]. tel:[phone] Office/Outpat ient Visit,[facility], [address], [place], [address], [place] tel:[phone] [facility] No Information 4 Pandiscio Susan. [facility], [address], [address], [place], [place], [id number], [place]. tel:[phone] Referring Provider: Freida Doe, [place] [address] [place], [address]. tel:[phone] Family History Family Member Type Diagnosis Age [...]
--- OUTSIDE RECORDS SUMMARY | 2024-01-17 00:09 | XMS_ITS | Clinical Summary ---
Author Name Unknown Organization [facility] Address [place], [place] [address] Care Team Providers Care Marketing Technologist Name Role Phone Kallie Tamayo NP Unavailable [phone] [facility] [place] Unavailable [phone] Flo Mckeon MD Primary Care Provider [phone] Allergies No known active allergies Medications Medication [...] Department Care Team Description 10/29/2023 Patient Outreach [facility] - Advanced Care Team [address] [place] [address] Roshan Zepeda exhibit designer Management (RN outreach attempt, Engagement Outreach, #3 of 3 due to Payer Referral/) 10/20/2023 Patient Outreach [facility] - Care Management Navigation/[facility] [address] [place] [address] Charley Hauser Care Management Intake (Payer Referral) [...] Influenza for age 65+ 06/13/2024 Care Teams Marketing Technologist Relationship Specialty Start Date End Date Flo Mckeon MD [address] [place] [id number] PCP - General Family Practice 10/04/21 Kallie Tamayo NP [address] [phone] Family Practice 01/17/14 [facility] [place] [address] [facility] [address] [place] [address] 01/29/14
[2024-01-17] MEDS: 0.9 % SODIUM CHLORIDE 1000 ml 1,000 ML 150 ML IV (01:40)
--- NOTE | 2024-01-17 05:02 | PC.NURSE ---
Pt rested well over night. Voiding via Catheter. Pain controlled. Oriented x3. Dressings CDI. Afebrile
[2024-01-17 06:55] LABS: Ionized Calcium* 1.02 mmol/L (1.11-1.30)
[2024-01-17 07:05] LABS: Basophils Percent Auto 0.2 % (0.0-3.0); Eosinophils Percent Auto 1.2 % (0.0-7.0); Hematocrit 33.1 % (33.0-51.0); Hemoglobin* 9.6 gm/dL (12.0-16.0); Immature Granulocytes Pct Auto 0.8 %; Lymphocytes Percent Auto 9.1 % (20-44); Mean Corpuscular HGB Conc 29 gm/dL (32-36); Mean Corpuscular Hemoglobin 26 pg (26-34); Mean Corpuscular Volume 91 fL (80-100); Monocytes Percent Auto 4.9 % (0.0-11.0); Neutrophils Percent Auto 83.8 % (42.0-72.0); Platelet Count* 242 K/uL (140-440); RDW Coefficient of Variation % 17.1 % (11.5-15.5); Red Blood Count 3.64 m/uL (4.00-5.20); White Blood Count* 16.08 K/uL (4.50-11.00)
[2024-01-17 07:11] LABS: Albumin* 2.2 g/dL (3.3-5.0)
[2024-01-17 07:12] LABS: Chloride* 104 mmol/L (96-114); Potassium* 3.3 mmol/L (3.6-5.1); Sodium* 138 mmol/L (135-149)
[2024-01-17 07:14] LABS: Anion Gap 3 mEq/L (7-15); Aspartate Amino Transferase* 17 U/L (12-35); Bilirubin Total* 0.5 mg/dL (0.1-1.5); Carbon Dioxide* 31 mmol/L (20-32); Creatinine* 0.2 mg/dL (0.5-1.5); Est. Creatinine Clearance* 33.84; Estimated Glomerular Filt Rate 120 ml/min; Total Protein* 4.4 g/dL (6.0-8.3)
--- NOTE | 2024-01-17 07:14 | P.IMPN_ITS ---
Progress Note: A&P Assessment and plan (1) Cellulitis: Problem details: - L flank, outlined upon admission, continue to monitor closely - on Imipenem (01/15/24) Status: Acute (2) Sepsis: Problem details: - concern given + SIRS criteria with WBC of 30, HR 100s, lactate >2 - source likely urine vs cellulitis vs osteomyelitis, blood and urine cultures currently NGTD - continues to subjectively and objectively improve - continue Imipenem (01/14) Status: Acute (3) Decubitus ulcers: Problem details: - presacral ulcer covered with Mepilex. 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, stage 4: Problem details: - Chronic right ischial tuberosity wound - Wound clinic following Status: Chronic (5) Acute hypokalemia: Problem details: - 2.6 early 01/15, up to 3.4 later 01/15, 3.3 on 01/16 - replace and follow Status: Acute (6) HTN (hypertension): Problem details: - on low dose Metoprolol and Lasix as an outpatient - lower BPs on admission (holding Metoprolol), increased since admission - restarting Lasix on 01/16 given weight gain and decreased UOP Status: Resolved (7) Anemia: Problem details: - no obvious bleeding, currently Hgb is 10.6 (close to baseline) - follow Status: Acute (8) CO2 retention: Problem details: - long history of severe CO2 retention, cannot receive supplemental oxygen without BiPAP, RT aware and following - RT to discuss with [facility] health and pursue home delivery of previously pres cribed BiPAP for home use. Status: Acute (9) Hypoalbuminemia due to protein-calorie malnutrition: Problem details: - mild protein-calorie malnutrition as evidenced by poor po intake, recurrent infections, hypoalbuminemia - encourage protein supplementation, nutrition referral Status: Acute (10) Hypocalcemia: Problem details: - replace and follow Status: Acute Plan - per above - Lovenox for ppx - continue abx, wound care Subjective Date Seen: 01/17/24 Interval history: Mary was admitted on 01/15 for L sided back cellulitis and concern for UTI. + SIRS criteria on admission (WBC 30, HR 120, lactate >2). BP 90s/60s in ED. Imipenem initiated /, in addition to IVFs. Lactate has normalized and WBC down to 16 today. BP and HR both improved significantly. Mary was noted to have a 6kg weight gain from admission with decreased UOP. Given stabilization of VS, she is amenable to d/c of IVFs and restarting her home dose of Lasix. This morning, she is continuing to feel better. No complaints for hospitalist team. Exam Narrative: Exam Narrative: GEN: Alert and laying comfortably in bed HEENT: EOMIs bilaterally, no scleral icterus CV: RRR, No concerning murmurs R: No tachypnea, no wheezing Ext: wearing Rah hose bilaterallt Skin: No worsening erythema of L flank area, no other abnormalities on limited skin exam Neuro: Baseline Psych: Appropriate Const: Vital Signs, click to edit/add: Vital Signs - 24 hr 01/16/24 07:48 01/16/24 07:48 01/16/24 11:00 Temperature 98.0 F 98.0 F Pulse Rate Pulse Rate [Pulse Oximeter] 86 103 H Respiratory Rate 14 14 16 Blood Pressure [Ri ght Arm] 97/46 L 103/53 L Pulse Oximetry 96 96 96 Oxygen Delivery Me thod Nasal Cannula Nasal Cannula Nasal Cannula Oxygen Flow Rate 1 1 0.5 01/16/24 15:00 01/16/24 15:00 01/16/24 15:00 Temperature 97.4 F L Pulse Rate Pulse Rate [Pulse Oximeter] 94 94 Respiratory Rate 18 18 Blood Pressure [Ri ght Arm] 142/55 H Pulse Oximetry 97 97 Oxygen Delivery Me thod Nasal Cannula Oxygen Flow Rate 0.5 01/16/24 15:00 01/16/24 19:32 01/16/24 20:20 Temperature 97.8 F Pulse Rate 103 H 113 H Pulse Rate [Pulse Oximeter] 115 H Respiratory Rate 16 Blood Pressure [Ri ght Arm] 114/45 L Pulse Oximetry 98 Oxygen Delivery Me thod Nasal Cannula Oxygen Flow Rate 0.5 01/16/24 23:12 01/16/24 23:33 01/16/24 23:34 Temperature 98.1 F Pulse Rate Pulse Rate [Pulse Oximeter] 98 98 Respiratory Rate 16 16 Blood Pressure [Ri ght Arm] 123/63 Pulse Oximetry 96 96 Oxygen Delivery Me thod Nasal Cannula Oxygen Flow Rate 0.5 01/17/24 01:41 Temperature 97.9 F Pulse Rate Pulse Rate [Pulse Oximeter] 98 Respiratory Rate 16 Blood Pressure [Ri ght Arm] 119/53 L Pulse Oximetry 96 Oxygen Delivery Me thod Nasal Cannula Oxygen Flow Rate 0.5 Labs Labs: Laboratory Results - last 24 hr 01/16/24 06:56 Sodium 135 Potassium 3.5 L Chloride 97 Carbon Dioxide 36 H Anion Gap 2 L BUN 16 Creatinine 0.3 L Estimated Creat Clear 33.84 Estimated GFR 109 Glucose 105 Calcium 7.6 L
[2024-01-17 07:15] LABS: Alanine Aminotransferase* 9 U/L (4-35); Alkaline Phosphatase* 96 U/L (40-150); Blood Urea Nitrogen* 12 mg/dL (7-30); Calcium* 7.2 mg/dL (8.4-10.6); Glucose* 81 mg/dL (60-115); Magnesium* 1.8 mg/dL (1.5-2.6)
[2024-01-17 07:27] LABS: Slide Review Reflex No
[2024-01-17] MEDS: CALCIUM GLUC 1,000MG/50 ML 1,000 MG/50 ML BAG 100 MG IVPB (08:57)
[2024-01-17] MEDS: predniSONE 5 MG TABLET 10 MG PO (09:28)
[2024-01-17] MEDS: FUROSEMIDE 40 MG TABLET PO (09:29)
[2024-01-17] MEDS: OXYCODONE 5 MG TABLET 7.5 MG PO ×3 (09:29→20:35)
[2024-01-17] MEDS: GABAPENTIN 300 MG CAPSULE PO ×3 (09:29→20:35)
[2024-01-17] MEDS: POTASSIUM CHLORIDE 10 MEQ CAPSULE ER 20 MEQ PO ×2 (09:31→18:13)
[2024-01-17] MEDS: SODIUM CHLORIDE 0.9 % (FLUSH) 10 ML SYRINGE 5 ML IVF ×2 (09:32→20:36)
[2024-01-17] MEDS: POTASSIUM BICARB 25 MEQ EFFERVESCENT TAB 50 MEQ PO (13:58)
[2024-01-17] MEDS: ACETAMINOPHEN 500 MG TABLET 1000 MG PO (19:15)
[2024-01-17] MEDS: ENOXAPARIN 40 MG/0.4 ML INJ SUBCUT (20:36)
[2024-01-18 02:08] VITALS: BP 116/59; PULSE 75; RESP 16; TEMP 36.4; O2SAT 95
--- NOTE | 2024-01-18 04:27 | PC.NURSE ---
Pt States she is feeling much improved compared to previous night. Tolerated home Bipap well over night with Zero Oxygen going in. Maintained Sats in the mid 90s. Chronic pain controlled. BP unremarkable. Afebrile. Wound Vac set and operating. Cellulitis appears much improved. compared to previous night. Pt pleasant ands cooperative.
[2024-01-18 07:00] VITALS: BP 124/76; PULSE 100; PULSE 75; RESP 18; TEMP 36.7; O2SAT 96
[2024-01-18 08:41] LABS: Basophils Percent Auto 0.2 % (0.0-3.0); Eosinophils Percent Auto 2.3 % (0.0-7.0); Hematocrit 34.6 % (33.0-51.0); Hemoglobin* 10.2 gm/dL (12.0-16.0); Immature Granulocytes Pct Auto 0.8 %; Lymphocytes Percent Auto 11.3 % (20-44); Mean Corpuscular HGB Conc 30 gm/dL (32-36); Mean Corpuscular Hemoglobin 27 pg (26-34); Mean Corpuscular Volume 91 fL (80-100); Neutrophils Percent Auto 80.4 % (42.0-72.0); Platelet Count* 238 K/uL (140-440); Red Blood Count 3.79 m/uL (4.00-5.20); White Blood Count* 18.37 K/uL (4.50-11.00)
[2024-01-18 08:52] LABS: Slide Review Reflex No
--- NOTE | 2024-01-18 08:53 | PM.IMPN1 ---
Progress Note: A&P Assessment and plan (1) Cellulitis: Problem details: - L flank, outlined upon admission, continue to monitor closely - on Imipenem (01/15/24) - more induration noted on 01/17, dependent edema vs worsening disease/early abscess - close monitoring, continue IV antibiotics and Lasix, repeat imaging with any worsening Status: Acute (2) Sepsis: Problem details: - concern given + SIRS criteria with WBC of 30, HR 100s, lactate >2 - source likely urine vs cellulitis vs osteomyelitis, blood and urine cultures currently NGTD - continues to subjectively and objectively improve - continue Imipenem (01/14) Status: Acute (3) Decubitus ulcers: Problem details: - presacral ulcer covered with Mepilex. 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, stage 4: Problem details: - Chronic right ischial tuberosity wound - Wound clinic following Status: Chronic (5) Acute hypokalemia: Problem details: - 2.6 early 01/15, up to 3.4 later 01/15, 3.3 on 01/16, 4.7 on 01/17 - replace and follow Status: Acute (6) HTN (hypertension): Problem details: - on low dose Metoprolol and Lasix as an outpatient - lower BPs on admission (holding Metoprolol), increased since admission - restarted Lasix on 01/16 given weight gain and decreased UOP Status: Resolved (7) Anemia: Problem details: - no obvious bleeding, currently Hgb is 10.6 (close to baseline) - follow Status: Acute (8) CO2 retention: Problem details: - long history of severe CO2 retention, cannot receive supplemental oxygen without BiPAP, RT aware and following - RT to discuss with [facility] health and pursue home delivery of previously prescribed BiPAP for home use. 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 + SIRS criteria on admission (WBC 30, HR 120, lactate >2). BP 90s/60s, pulse 120s in ED. Imipenem initiated 01/15. Since admission, patient's lactate, BP, and HR have normalized. She is off of IVFs and has restarted Lasix, remains afebrile. Nothing growing on urine or blood cultures at this time. She continues to feel better each day. Working with therapies and wound care. Wearing BIPAP at night. She lives with her daughter, plans to discharge back there when medically appropriate. Exam Narrative: Exam Narrative: GEN: Alert and laying comfortably in bed, answering questions appropriately HEENT: EOMIs bilaterally, no scleral icterus CV: RRR, No concerning murmurs R: No tachypnea, no wheezing Ext: wearing Rah hose bilaterally Skin: Area of L flank cellulitis has not extended past admission outline, redness is improving. Lateral region is more indurated, mild ttp. No fluctuance or skin breakdown over L flank. Sacral wound not formally examined Neuro: Baseline for chronic paraplegia Psych: Appropriate Const: Vital Signs, click to edit/add: Vital Signs - 24 hr 01/17/24 11:00 01/17/24 14:56 01/17/24 14:56 Temperature 98.3 F Pulse Rate [Pulse Oximeter] 94 98 Respiratory Rate 16 16 Blood Pressure [Ri ght Arm] 101/40 L Pulse Oximetry 94 98 Oxygen Delivery Me thod Nasal Cannula Oxygen Flow Rate 01/17/24 14:56 01/17/24 19:15 01/17/24 19:17 Temperature 98.3 F 98.3 F 97.9 F Pulse Rate [Pulse Oximeter] 98 106 H Respiratory Rate 16 16 Blood Pressure [Ri ght Arm] 122/57 L 111/65 Pulse Oximetry 98 93 Oxygen Delivery Me thod Room Air Room Air Oxygen Flow Rate 01/17/24 20:36 01/17/24 21:56 01/17/24 22:28 Temperature 97.9 F 98.0 F Pulse Rate [Pulse Oximeter] 98 Respiratory Rate 16 Blood Pressure [Ri ght Arm] 124/54 L Pulse Oximetry 95 95 Oxygen Delivery Me thod BiPAP Oxygen Flow Rate 0 01/17/24 22:29 01/18/24 02:08 Temperature 97.5 F L Pulse Rate [Pulse Oximeter] 98 75 Respiratory Rate 16 16 Blood Pressure [Ri ght Arm] 116/59 L Pulse Oximetry 95 Oxygen Delivery Me thod BiPAP Oxygen Flow Rate 0 Labs Labs: Laboratory Results - last 24 hr 01/18/24 08:36 WBC 18.37 H RBC 3.79 L Hgb 10.2 L Hct 34.6 MCV 91 MCH 27 MCHC 30 L RDW Coeff of Lynette 17.0 H Plt Count 238 Neut % (Auto) 80.4 H Lymph % (Auto) 11.3 L Stoddard % (Auto) 5.0 Eos % (Auto) 2.3 Baso % (Auto) 0.2 Neut # (Auto) 14.80 H Lymph # (Auto) 2.10 Stoddard # (Auto) 0.90 Eos # (Auto) 0.40 Baso # (Auto) 0.00 Abs Immat Gran (auto) 0.10 Imm/Tot Granulo (auto) 0.8
[2024-01-18 08:54] LABS: Albumin* 2.5 g/dL (3.3-5.0); Chloride* 101 mmol/L (96-114)
[2024-01-18 08:55] LABS: Potassium* 4.7 mmol/L (3.6-5.1); Sodium* 136 mmol/L (135-149)
[2024-01-18 08:57] LABS: Anion Gap 2 mEq/L (7-15); Aspartate Amino Transferase* 19 U/L (12-35); Bilirubin Total* 0.5 mg/dL (0.1-1.5); Carbon Dioxide* 33 mmol/L (20-32); Creatinine* 0.3 mg/dL (0.5-1.5); Est. Creatinine Clearance* 33.84; Estimated Glomerular Filt Rate 109 ml/min; Total Protein* 4.8 g/dL (6.0-8.3)
[2024-01-18 08:58] LABS: Alanine Aminotransferase* 12 U/L (4-35); Alkaline Phosphatase* 116 U/L (40-150); Blood Urea Nitrogen* 13 mg/dL (7-30); Glucose* 78 mg/dL (60-115)
[2024-01-18] MEDS: POTASSIUM CHLORIDE 10 MEQ CAPSULE ER 20 MEQ PO ×2 (09:32→18:11)
[2024-01-18] MEDS: predniSONE 5 MG TABLET 10 MG PO (09:33)
[2024-01-18] MEDS: OXYCODONE 5 MG TABLET 7.5 MG PO ×3 (09:34→21:12)
[2024-01-18] MEDS: FUROSEMIDE 40 MG TABLET PO (09:35)
[2024-01-18] MEDS: SODIUM CHLORIDE 0.9 % (FLUSH) 10 ML SYRINGE 5 ML IVF ×2 (09:35→21:13)
[2024-01-18] MEDS: GABAPENTIN 300 MG CAPSULE PO ×3 (09:35→21:13)
[2024-01-18 11:00] VITALS: BP 135/66; PULSE 104; RESP 18; TEMP 36.8; O2SAT 92
[2024-01-18 15:00] VITALS: BP 135/77; PULSE 100; RESP 18; TEMP 36.8; O2SAT 95
[2024-01-18 19:00] VITALS: BP 139/72; PULSE 94; RESP 18; O2SAT 97
--- NOTE | 2024-01-18 19:32 | PC.NURSE ---
End of shift: patient alert and oriented x4. Dressings C/D/I. Patient tolerating a reg. diet. Patient VSS. on RA. Patient repo as needed. Cristobal patent and draining.
--- NOTE | 2024-01-18 20:11 | RESP.RT ---
Patient has been resting well with home BiPAP. Adjusting her BiPAP mask has improved the support that she is receiving and allowing for consistent therapy. She is very sensitive to higher SATs and should not receive supplemental O2 unless she is symptomatic, as she retains CO2 quickly.
[2024-01-18] MEDS: ENOXAPARIN 40 MG/0.4 ML INJ SUBCUT (21:13)
[2024-01-18 23:00] VITALS: BP 152/74; PULSE 92; PULSE 94; RESP 16; RESP 18; TEMP 36.8; O2SAT 94; O2SAT 98
[2024-01-19] VITALS (7 sets, daily range): BP systolic 115–152; BP diastolic 51–66; PULSE 76–134; RESP 12–20; TEMP 36.1–36.8; O2SAT 90–99
[2024-01-19 06:08] LABS: Lactate* 1.1 mmol/L (0.5-1.9)
--- NOTE | 2024-01-19 06:20 | PC.NURSE ---
Addendum entered by Tania Hassan RN 01/19/24 06:23: reddness from cellulitis remained within defined outline on left flank from admin, area does appear edematous. Original Note: : pleasant and cooperative. T&R. BM x 1.?BiPAP placed at 2130, O2 sats maintained in the 90s, occasionally would dip into the low 80s ? but would rebound quickly. ? Wound vac patent and draining. Cristobal patent and draining pale yellow urine. Mepi on buttock changed d/t being soiled. ?
[2024-01-19 06:22] LABS: Basophils Percent Auto 0.2 % (0.0-3.0); Eosinophils Percent Auto 2.7 % (0.0-7.0); Hematocrit 33.8 % (33.0-51.0); Hemoglobin* 10.2 gm/dL (12.0-16.0); Immature Granulocytes Pct Auto 0.9 %; Mean Corpuscular HGB Conc 30 gm/dL (32-36); Mean Corpuscular Hemoglobin 27 pg (26-34); Mean Corpuscular Volume 90 fL (80-100); Neutrophils Percent Auto 74.2 % (42.0-72.0); Platelet Count* 246 K/uL (140-440); RDW Coefficient of Variation % 16.8 % (11.5-15.5); Red Blood Count 3.76 m/uL (4.00-5.20); White Blood Count* 16.32 K/uL (4.50-11.00)
[2024-01-19 06:24] LABS: Slide Review Reflex No
[2024-01-19 07:48] LABS: Albumin* 2.3 g/dL (3.3-5.0); Chloride* 98 mmol/L (96-114)
[2024-01-19 07:49] LABS: Potassium* 4.7 mmol/L (3.6-5.1); Sodium* 131 mmol/L (135-149)
[2024-01-19 07:51] LABS: Alanine Aminotransferase* 10 U/L (4-35); Alkaline Phosphatase* 117 U/L (40-150); Anion Gap 0 mEq/L (7-15); Aspartate Amino Transferase* 19 U/L (12-35); Bilirubin Total* 0.7 mg/dL (0.1-1.5); Blood Urea Nitrogen* 11 mg/dL (7-30); Carbon Dioxide* 33 mmol/L (20-32); Creatinine* 0.2 mg/dL (0.5-1.5); Est. Creatinine Clearance* 33.84; Estimated Glomerular Filt Rate 120 ml/min; Total Protein* 4.6 g/dL (6.0-8.3)
[2024-01-19 07:52] LABS: Calcium* 7.9 mg/dL (8.4-10.6); Glucose* 79 mg/dL (60-115)
[2024-01-19 07:54] LABS: C Reactive Protein* 6.9 mg/dL (0.5-1.0)
--- NOTE | 2024-01-19 08:52 | PM.IMPN1 ---
Progress Note: A&P Assessment and plan (1) Cellulitis: Problem details: - L flank, outlined upon admission, Imipenem initiated 01/15/24 - more induration noted on 01/17, dependent edema vs worsening disease/early abscess, stable on 01/18 - add Bactrim for 01/18 for MRSA coverage - continue IV antibiotics and Lasix, repeat imaging with any worsening symptoms Status: Acute (2) Sepsis: Problem details: - concern given + SIRS criteria with WBC of 30, HR 100s, lactate >2 - source likely urine vs cellulitis vs osteomyelitis, blood and urine cultures currently NGTD - continues to subjectively and objectively improve - continue Imipenem (01/14) Status: Acute (3) Decubitus ulcers: Problem details: - presacral ulcer covered with Mepilex. 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, stage 4: Problem details: - Chronic right ischial tuberosity wound - Wound clinic following Status: Chronic (5) Acute hypokalemia: Problem details: - replace and follow Status: Acute (6) Anemia: Problem details: - no obvious bleeding, currently Hgb is 9-10 (baseline) - follow Status: Acute (7) CO2 retention: Problem details: - long history of severe CO2 retention, cannot receive supplemental oxygen without BiPAP, RT aware and following - using BIPAP at night Status: Acute Plan - per above - Lovenox for ppx - home with daughter when medically appropriate, possibly as early as tomorrow Subjective Date Seen: 01/19/24 Interval history: Mary was admitted to the hospital 01/15 for L sided back cellulitis and concern for UTI. + SIRS criteria on admission (WBC 30, HR 120, lactate >2). BP 90s/60s, pulse 120s in ED, Imipenem initiated upon admission (01/15). Mary continues to subjectively and objectively improve; lactate, BP, HR have normalized. WBC back to baseline (15-16k), no growth to date on urine or blood cultures. Tolerating BIPAP at night. She is being followed by therapies and wound care (chronic sacral ulcer). She lives with her daughter, plans to discharge back there when medically appropriate. Exam Narrative: Exam Narrative: GEN: Alert and sitting up comfortably in bed, nontoxic HEENT: EOMIs bilaterally, no scleral icterus CV: S1, S2, No concerning murmurs or gallops R: Air movement adequate without wheezing, no tachypnea Ext: wearing Rah hose bilaterally Skin: L flank remains erythematous and warm to touch, erythema has not extended past outline. Mild discomfort to palpation. No fluctuance, no skin breakdown Neuro: Appropriate for chronic conditions Psych: Appropriate Const: Vital Signs, click to edit/add: Vital Signs - 24 hr 01/18/24 11:00 01/18/24 15:00 01/18/24 15:00 Temperature 98.2 F Pulse Rate [Pulse Oximeter] 104 H 100 Respiratory Rate 18 18 Blood Pressure [Le ft Arm] Blood Pressure [Ri ght Arm] 135/66 Pulse Oximetry 92 95 Oxygen Delivery Me thod Room Air Oxygen Flow Rate 0 Fraction of Inspir ed Oxygen 2 01/18/24 15:00 01/18/24 19:00 01/18/24 23:00 Temperature 98.2 F Pulse Rate [Pulse Oximeter] 100 94 Respiratory Rate 18 18 Blood Pressure [Le ft Arm] Blood Pressure [Ri ght Arm] 135/77 139/72 Pulse Oximetry 95 97 94 Oxygen Delivery Me thod Room Air Room Air Oxygen Flow Rate 0 Fraction of Inspir ed Oxygen 2 01/18/24 23:00 01/18/24 23:00 01/19/24 03:00 Temperature 98.2 F Pulse Rate [Pulse Oximeter] 94 92 Respiratory Rate 18 16 12 Blood Pressure [Le ft Arm] 152/74 H Blood Pressure [Ri ght Arm] Pulse Oximetry 98 90 Oxygen Delivery Me thod BiPAP BiPAP Oxygen Flow Rate 0 Fraction of Inspir ed Oxygen Labs Labs: Laboratory Results - last 24 hr 01/18/24 01/19/24 08:36 05:53 WBC 18.37 H 16.32 H RBC 3.79 L 3.76 L Hgb 10.2 L 10.2 L Hct 34.6 33.8 MCV 91 90 MCH 27 27 MCHC 30 L 30 L RDW Coeff of Lynette 17.0 H 16.8 H Plt Count 238 246 Neut % (Auto) 80.4 H 74.2 H Lymph % (Auto) 11.3 L 15.0 L Wilson % (Auto) 5.0 7.0 Eos % (Auto) 2.3 2.7 Baso % (Auto) 0.2 0.2 Neut # (Auto) 14.80 H 12.10 H Lymph # (Auto) 2.10 2.40 Wilson # (Auto) 0.90 1.10 H Eos # (Auto) 0.40 0.40 Baso # (Auto) 0.00 0.00 Abs Immat Gran (auto) 0.10 0.10 Imm/Tot Granulo (auto) 0.8 0.9 Sodium 136 131 L Potassium 4.7 4.7 Chloride 101 98 Carbon Dioxide 33 H 33 H Anion Gap 2 L 0 L BUN 13 11 Creatinine 0.3 L 0.2 L Estimated Creat Clear 33.84 33.84 Estimated GFR 109 120 Glucose 78 79 Lactate 1.1 Calcium 8.0 L 7.9 L Total Bilirubin 0.5 0.7 AST 19 19 ALT 12 10 Alkaline Phosphatase 116 117 C-Reactive Protein 6.9 H Total Protein 4.8 L 4.6 L Albumin 2.5 L 2.3 L
[2024-01-19] MEDS: METOPROLOL SUCCINATE (XL) 50 MG TAB PO (09:00)
[2024-01-19] MEDS: GABAPENTIN 300 MG CAPSULE PO ×3 (09:00→20:32)
[2024-01-19] MEDS: FUROSEMIDE 40 MG TABLET PO (09:00)
[2024-01-19] MEDS: OXYCODONE 5 MG TABLET 7.5 MG PO ×4 (09:01→22:00)
[2024-01-19] MEDS: predniSONE 5 MG TABLET 10 MG PO (09:01)
[2024-01-19] MEDS: POTASSIUM CHLORIDE 10 MEQ CAPSULE ER 20 MEQ PO ×2 (09:01→18:37)
--- NOTE | 2024-01-19 09:13 | PC.SOCIAL ---
Received call from [facility] healthcare network pricing consultant, Kale, providing his contact information in case needed for discharge planning [phone].
[2024-01-19] MEDS: SODIUM CHLORIDE 0.9 % (FLUSH) 10 ML SYRINGE 5 ML IVF ×3 (09:22→20:36)
--- NOTE | 2024-01-19 10:53 | NUTR.NU ---
RDN with follow-up visit related to wound healing and weight. Current weight 141 lb; height 5ft; BMI 27.5 kg/m2. Diet is Regular, meal intakes have been adequate at mainly 100% within the past few days. Demario BID and Enlive/Premier Protein once daily ordered. Patient reports drinking Demario and Enlive. She sometime is not able to finish all of it. She reports a good appetite. She tries to include protein at each meal. Her weight has been about 135lbs recently, reports no weight loss. No changes in nutrition interventions at this time. Offer Demario BID and Premier Protein/Enlive once daily to help meet estimated protein needs. RDN will continue to monitor and follow-up prn.
--- NOTE | 2024-01-19 13:48 | PC.NURSE ---
Currently has her home vac in place. Dressing changed after wounds were cleaned with vashe. tolerated proceed well. No air leak noted
--- NOTE | 2024-01-19 14:31 | PC.NURSE ---
End of Shift Note: Patient has had a uneventful day. Started off her heart was a little fast but she was experiencing pain. Received pain medication and metoprolol was restarted and heart rate has been better. Dressing changed on all of her wounds and tolerated this procedure well after receiving oxycodone per DEC. Will continue to monitor until next shift arrives so far is declining on ordering lunch and have enc her to take in some protein to help with wound healing.
--- NOTE | 2024-01-19 16:40 | PC.SOCIAL ---
Discharge planning- Per MD, pt may be ready for discharge tomorrow. Met with pt to discuss discharge plans. Pt would like to return home with home care resumed. Pt has home care with [facility] for nursing (wound care) and bath aide. Home care resumption order will need to be completed. Phone call to pt's daughter, Elvi, and discussed discharge plans. If pt is medically cleared tomorrow, pt's daughter will transport at 3:00 pm. Social work will keep family updated on discharge plans. Provided update to charge nurse.
--- NOTE | 2024-01-19 18:48 | PC.NURSE ---
End of shift [id number]: Pt is A&O x4, afebrile and VSS this shift. Chronic Cristobal intact, patent and draining clear, yellow urine. Total output this shift 1550 mL. No BM's this afternoon. SCD's in place. Left lateral foot, coccyx, and wound vac dressings all changed previous shift. Pt has maintained O2 on RA. PIV in right FA SL and C/D/I. PRN oxycodone given last @ 1640 for right hip/buttock pain- consistently rating at 8/10. TR q2H and as patient requests.
[2024-01-19] MEDS: ENOXAPARIN 40 MG/0.4 ML INJ SUBCUT (20:34)
[2024-01-20 02:00] VITALS: BP 141/69; PULSE 83; RESP 16; TEMP 36.1; O2SAT 95
[2024-01-20] MEDS: ACETAMINOPHEN 500 MG TABLET 1000 MG PO ×3 (03:39→20:43)
--- NOTE | 2024-01-20 05:33 | PC.NURSE ---
Patient pleasant, alert and oriented. Oxycodone given for?pain rated 7/10 in right hip. Tylenol given for headache. Cirstobal catheter patent and draining clear yellow urine. Turned and repositioned q 2hr. Dressings C,D & I. ?
[2024-01-20 06:22] LABS: Ionized Calcium* 1.12 mmol/L (1.11-1.30)
[2024-01-20 06:26] LABS: Basophils Percent Auto 0.3 % (0.0-3.0); Eosinophils Percent Auto 2.9 % (0.0-7.0); Hematocrit 32.2 % (33.0-51.0); Hemoglobin* 9.8 gm/dL (12.0-16.0); Immature Granulocytes Pct Auto 1.7 %; Lymphocytes Percent Auto 15.9 % (20-44); Mean Corpuscular HGB Conc 30 gm/dL (32-36); Mean Corpuscular Hemoglobin 27 pg (26-34); Mean Corpuscular Volume 89 fL (80-100); Neutrophils Percent Auto 70.2 % (42.0-72.0); Platelet Count* 252 K/uL (140-440); RDW Coefficient of Variation % 16.8 % (11.5-15.5); Red Blood Count 3.63 m/uL (4.00-5.20); White Blood Count* 15.82 K/uL (4.50-11.00)
[2024-01-20 06:35] LABS: Slide Review Reflex No
[2024-01-20 06:45] LABS: Chloride* 96 mmol/L (96-114); Sodium* 132 mmol/L (135-149)
[2024-01-20 06:46] LABS: Potassium* 4.5 mmol/L (3.6-5.1)
[2024-01-20 06:48] LABS: Creatinine* 0.3 mg/dL (0.5-1.5); Est. Creatinine Clearance* 33.84; Estimated Glomerular Filt Rate 109 ml/min
[2024-01-20 06:49] LABS: Anion Gap 0 mEq/L (7-15); Blood Urea Nitrogen* 15 mg/dL (7-30); Calcium* 8.3 mg/dL (8.4-10.6); Carbon Dioxide* 36 mmol/L (20-32); Glucose* 83 mg/dL (60-115)
[2024-01-20 07:00] VITALS: BP 122/62; PULSE 82; RESP 18; TEMP 36.3; O2SAT 92
[2024-01-20] MEDS: OXYCODONE 5 MG TABLET 7.5 MG PO ×2 (09:19→21:42)
[2024-01-20] MEDS: FUROSEMIDE 40 MG TABLET PO (09:20)
[2024-01-20] MEDS: METOPROLOL SUCCINATE (XL) 50 MG TAB PO (09:21)
[2024-01-20] MEDS: predniSONE 5 MG TABLET 10 MG PO (09:22)
[2024-01-20] MEDS: GABAPENTIN 300 MG CAPSULE PO ×3 (09:22→20:43)
[2024-01-20] MEDS: POTASSIUM CHLORIDE 10 MEQ CAPSULE ER 20 MEQ PO ×2 (09:23→18:30)
[2024-01-20] MEDS: SODIUM CHLORIDE 0.9 % (FLUSH) 10 ML SYRINGE 5 ML IVF ×2 (09:23→20:43)
--- NOTE | 2024-01-20 10:46 | P.IMPN_ITS ---
Progress Note: A&P Assessment and plan (1) Drug reaction: Problem details: likely from the Bactrim zyrtec 10 mg BID burst of prednisone (again) follow Status: Acute (2) Cellulitis: Problem details: - L flank, outlined upon admission, Imipenem initiated 01/15/24 - drug reaction to the bactrim added 01/18 suspected (see photos in separate chart entry). held after am dosing of 01/19. - continue IV antibiotics and Lasix, repeat imaging with any worsening symptoms Status: Acute (3) Sepsis: Problem details: - continues to subjectively and objectively improve - concern given + SIRS criteria with WBC of 30, HR 100s, lactate >2 - source likely urine vs cellulitis vs osteomyelitis, blood and urine cultures currently NGTD - continue Imipenem (01/14) Status: Acute (4) Decubitus ulcers: Problem details: - presacral ulcer covered with Mepilex. 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, stage 4: Problem details: - Chronic right ischial tuberosity wound - Wound clinic following Status: Chronic (6) Acute hypokalemia: Problem details: - replace and follow Status: Acute (7) Anemia: Problem details: - no obvious bleeding, currently Hgb is 9-10 (baseline) - follow Status: Acute (8) CO2 retention: Problem details: - long history of severe CO2 retention, cannot receive supplemental oxygen without BiPAP, RT aware and following - using BIPAP at night Status: Acute Subjective Date Seen: 01/20/24 Interval history: Daily Progress Note - Hospital Medicine Day #: 4 CC: sepsis (resolved), cellulitis, longstanding paralysis OVERNIGHT UPDATES FROM STAFF & MED, LAB, IMAGING UPDATES stable overnight. feeling improved. induration along the left hip/thigh/lower abdominal wall seems to be improving (RN from yesterday helped with my exam today) new patchy raised urticarial lesions noted in her groin, right breast/abdominal wall and distal left thigh -bactrim started yesterday All labs reviewed. All imaging from admission is reviewed. Cultures are negative. Objective: happy, alert, NAD Vitals: see above Lungs: Clear. Cardiac: S1S2. skin: as above. SEE PICS IN CHART NOTES (SEPARATE ENTRY) Disposition/Potential discharge - Likely to return to previous living situation. Exam Const: Vital Signs, click to edit/add: Vital Signs - 24 hr 01/19/24 11:00 01/19/24 15:00 01/19/24 15:00 Temperature 96.9 F L Pulse Rate [Pulse Oximeter] 102 H 92 Respiratory Rate 20 20 Blood Pressure [Le ft Arm] 140/61 H Pulse Oximetry 93 99 Oxygen Delivery Me thod Room Air 01/19/24 15:00 01/19/24 19:00 01/19/24 22:12 Temperature 98.1 F 97.5 F L 97.1 F L Pulse Rate [Pulse Oximeter] 92 90 76 Respiratory Rate 20 19 20 Blood Pressure [Le ft Arm] 115/51 L 119/66 121/57 L Pulse Oximetry 97 94 98 Oxygen Delivery Me thod Room Air Room Air Room Air 01/19/24 22:19 01/20/24 02:00 01/20/24 07:00 Temperature 96.9 F L 97.4 F L Pulse Rate [Pulse Oximeter] 83 82 Respiratory Rate 16 18 Blood Pressure [Le ft Arm] 141/69 H 122/62 Pulse Oximetry 98 95 92 Oxygen Delivery Me thod Room Air Room Air 01/20/24 07:00 01/20/24 07:00 Temperature Pulse Rate [Pulse Oximeter] 82 Respiratory Rate 18 Blood Pressure [Le ft Arm] Pulse Oximetry 92 Oxygen Delivery Me thod Labs Labs: Laboratory Results - last 24 hr 01/20/24 06:08 WBC 15.82 H RBC 3.63 L Hgb 9.8 L Hct 32.2 L MCV 89 MCH 27 MCHC 30 L RDW Coeff of Lynette 16.8 H Plt Count 252 Neut % (Auto) 70.2 Lymph % (Auto) 15.9 L [place] % (Auto) 9.0 Eos % (Auto) 2.9 Baso % (Auto) 0.3 Neut # (Auto) 11.10 H Lymph # (Auto) 2.50 [place] # (Auto) 1.40 H Eos # (Auto) 0.50 Baso # (Auto) 0.00 Abs Immat Gran (auto) 0.30 Imm/Tot Granulo (auto) 1.7 Sodium 132 L Potassium 4.5 Chloride 96 Carbon Dioxide 36 H Anion Gap 0 L BUN 15 Creatinine 0.3 L Estimated Creat Clear 33.84 Estimated GFR 109 Glucose 83 Calcium 8.3 L Ionized Calcium [place] 1.12
[2024-01-20] MEDS: CETIRIZINE HCL 10 MG TABLET PO ×2 (10:52→20:42)
[2024-01-20] MEDS: predniSONE 20 MG TABLET 60 MG PO (10:52)
[2024-01-20 11:00] VITALS: BP 123/65; PULSE 88; RESP 16; TEMP 36.4; O2SAT 95
[2024-01-20 12:30] LABS: C Reactive Protein* 5.2 mg/dL (0.5-1.0)
--- NOTE | 2024-01-20 12:42 | PC.SOCIAL ---
Addendum entered by CHANTE Gr 01/20/24 16:06: Per [facility], if pt discharges tomorrow she will need to be home by 12:00 pm for her wound care appointment with home care. If pt is not able to get home at 12:00 pm tomorrow, then her wound vac will need to be changed at [facility], prior to discharge. Provided update to charge nurse. Original Note: Discharge planning- Per MD, pt is not medically cleared to discharge today. Pt may be ready tomorrow. Phone call to pt's daughter, Elvi, to provide update. Elvi informs that she will transport when medically cleared for discharge. This worker will follow up tomorrow morning to discuss a transport time. Provided update to [facility].
[2024-01-20 15:00] VITALS: BP 104/51; PULSE 87; RESP 18; TEMP 36.4; O2SAT 90
--- NOTE | 2024-01-20 18:59 | PC.NURSE ---
End of Shift: Patient pleasant and cooperative, A&O. VSS, afebrile. Lung sounds clear to auscultation, SpO2 maintained over 87% on room air. Dressings on left foot and coccyx clean, dry, and intact. Pain was managed with Tylenol and Oxycodone. Repositioned patient as needed throughout the day.
[2024-01-20 19:00] VITALS: BP 98/49; PULSE 77; RESP 18; TEMP 36.3; O2SAT 90
[2024-01-20] MEDS: ENOXAPARIN 40 MG/0.4 ML INJ SUBCUT (20:43)
[2024-01-20 23:00] VITALS: BP 111/62; PULSE 67; RESP 18; TEMP 36.3; O2SAT 96
[2024-01-21 03:00] VITALS: BP 164/89; PULSE 67; RESP 18; TEMP 36.4; O2SAT 96
[2024-01-21] MEDS: SODIUM CHLORIDE 0.9 % (FLUSH) 10 ML SYRINGE 5 ML IVF ×3 (03:19→22:28)
[2024-01-21 06:49] LABS: Hematocrit 33.4 % (33.0-51.0); Hemoglobin* 10.1 gm/dL (12.0-16.0); Mean Corpuscular HGB Conc 30 gm/dL (32-36); Mean Corpuscular Hemoglobin 27 pg (26-34); Mean Corpuscular Volume 89 fL (80-100); Platelet Count* 284 K/uL (140-440); Red Blood Count 3.74 m/uL (4.00-5.20); White Blood Count* 16.44 K/uL (4.50-11.00)
[2024-01-21 07:16] LABS: Slide Review Reflex No
--- NOTE | 2024-01-21 07:22 | PC.NURSE ---
Shift note: Pt is alert and oriented, bed hilliard. Wound vac is working well. Pain level rated at 7 and oxycodone 7.5mg given. Pt has been on CPAP throughout the night. Cristobal draining well. Had adequate sleep. Vitally stable.
[2024-01-21 07:24] LABS: Chloride* 97 mmol/L (96-114); Potassium* 4.2 mmol/L (3.6-5.1); Sodium* 134 mmol/L (135-149)
[2024-01-21 07:27] LABS: Anion Gap 2 mEq/L (7-15); Blood Urea Nitrogen* 16 mg/dL (7-30); Carbon Dioxide* 35 mmol/L (20-32); Creatinine* 0.3 mg/dL (0.5-1.5); Est. Creatinine Clearance* 33.84; Estimated Glomerular Filt Rate 109 ml/min; Glucose* 143 mg/dL (60-115)
[2024-01-21 07:28] LABS: Calcium* 8.5 mg/dL (8.4-10.6)
[2024-01-21 07:30] LABS: C Reactive Protein* 4.9 mg/dL (0.5-1.0)
[2024-01-21 08:44] VITALS: BP 142/68; PULSE 84; RESP 18; TEMP 36.6; O2SAT 96
[2024-01-21] MEDS: predniSONE 20 MG TABLET 40 MG PO (08:45)
[2024-01-21] MEDS: CETIRIZINE HCL 10 MG TABLET PO ×2 (08:45→22:25)
[2024-01-21] MEDS: METOPROLOL SUCCINATE (XL) 50 MG TAB PO (08:45)
[2024-01-21] MEDS: GABAPENTIN 300 MG CAPSULE PO ×3 (08:45→22:27)
[2024-01-21] MEDS: POTASSIUM CHLORIDE 10 MEQ CAPSULE ER 20 MEQ PO ×2 (08:46→17:48)
[2024-01-21] MEDS: FUROSEMIDE 40 MG TABLET PO (08:46)
--- NOTE | 2024-01-21 09:51 | PC.SOCIAL ---
Discharge planning- Per MD, pt is not medically cleared to discharge today. Phone call to Trinity at [facility] to provide update. Phone call to pt's daughter, Elvi, and provided update. Pt's daughter is coming to the hospital shortly with wound care supplies. Provided update to charge nurse.
[2024-01-21] MEDS: OXYCODONE 5 MG TABLET 7.5 MG PO ×3 (10:34→18:52)
--- NOTE | 2024-01-21 10:57 | P.IMPN_ITS ---
Progress Note: A&P Assessment and plan (1) Cellulitis: Problem details: - L flank, outlined upon admission, Imipenem initiated 01/15/24 - completed 01/20. Oral Keflex to complete total of 10 days of antibiotic therapy. - drug reaction to the bactrim added 01/18 suspected (see photos in separate c carmona entry). held after am dosing of 01/19. Topical triamcinolone and emollient and p.o. prednisone. Continue to monitor as inpatient. Status: Acute (2) Drug reaction: Problem details: likely from the Bactrim zyrtec 10 mg BID burst of prednisone (again) topical steroid/emollient. follow as inpatient. Status: Acute (3) Sepsis: Problem details: - continues to subjectively and objectively improve - concern given + SIRS criteria with WBC of 30, HR 100s, lactate >2 - source likely urine vs cellulitis vs osteomyelitis, blood and urine cultures currently NGTD - continue Imipenem (01/14) Status: Acute (4) Decubitus ulcers: Problem details: - presacral ulcer covered with Mepilex. 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, stage 4: Problem details: - Chronic right ischial tuberosity wound - Wound clinic following Status: Chronic (6) Acute hypokalemia: Problem details: - replace and follow Status: Acute (7) Anemia: Problem details: - no obvious bleeding, currently Hgb is 9-10 (baseline) - follow Status: Acute (8) CO2 retention: Problem details: - long history of severe CO2 retention, cannot receive supplemental oxygen without BiPAP, RT aware and following - using BIPAP at night Status: Acute Subjective Date Seen: 01/21/24 Interval history: Daily Progress Note - Hospital Medicine Day #: 5 CC: sepsis (resolved), cellulitis, longstanding paralysis - exanthematous drug reaction (day 2) OVERNIGHT UPDATES FROM STAFF & MED, LAB, IMAGING UPDATES stable overnight. feeling improved. Is deathly been a progression of the morbilliform rash down her back and across her abdominal wall. The actual cellulitis looks improved. She has been getting Zyrtec 10 mg b.i.d. along with a decreasing dose of p.o. prednisone. I have held the Bactrim. I feel this is the offending agent. She has had rashes to penicillin in the past. She had anaphylactic shock with vancomycin. I did consider DRESS syndrome. However she has had no eosinophilia, creatinine and liver enzymes are all normal. CRP is down trending. All labs reviewed. All imaging from admission is reviewed. Cultures are negative. Objective: Interactive, alert. She looks more flushed than she did yesterday to me. She is complaining of puritis. Vitals: see above Lungs: Clear. Cardiac: S1S2. skin: as above. Near confluent morbilliform eruption down her back, scattered wheels and papules across her anterior abdomen. Thickening of the skin folds along her left hip which have receded from previous markings and seems softer today than yesterday. Disposition/Potential discharge - Likely to return to previous living situation. Exam Const: Vital Signs, click to edit/add: Vital Signs - 24 hr 01/20/24 11:00 01/20/24 15:00 01/20/24 15:00 Temperature 97.6 F 97.5 F L Pulse Rate [Pulse Oximeter] 88 87 Respiratory Rate 16 18 Blood Pressure [Le ft Arm] 123/65 104/51 L Pulse Oximetry 95 90 90 Oxygen Delivery Me thod Room Air Room Air 01/20/24 15:00 01/20/24 19:00 01/20/24 23:00 Temperature 97.3 F L Pulse Rate [Pulse Oximeter] 87 77 Respiratory Rate 18 18 Blood Pressure [Le ft Arm] 98/49 L Pulse Oximetry 90 96 Oxygen Delivery Mt thod Room Air 01/20/24 23:00 01/20/24 23:00 01/21/24 03:00 Temperature 97.3 F L 97.5 F L Pulse Rate [Pulse Oximeter] 67 67 67 Respiratory Rate 18 18 18 Blood Pressure [Le ft Arm] 111/62 164/89 H Pulse Oximetry 96 96 Oxygen Delivery Mt thod Room Air CPAP 01/21/24 08:44 01/21/24 08:44 Temperature 97.9 F Pulse Rate [Pulse Oximeter] 84 Respiratory Rate 18 Blood Pressure [Le ft Arm] 142/68 H Pulse Oximetry 96 96 Oxygen Delivery Mt thod Room Air Labs Labs: Laboratory Results - last 24 hr 01/20/24 01/20/2401/20/24 06:08 11:12 06:11 WBC 16.44 H RBC 3.74 L Hgb 10.1 L Hct 33.4 MCV 89 MCH 27 MCHC 30 L Plt Count 284 Sodium 134 L Potassium 4.2 Chloride 97 Carbon Dioxide 35 H Anion Gap 2 L BUN 16 Creatinine 0.3 L Estimated Creat Clear 33.84 Estimated GFR 109 Glucose 143 H Calcium 8.5 C-Reactive Protein 5.2 H 4.9 H Lab Acknowledgement Test Added
--- NOTE | 2024-01-21 11:05 | P.EN_ITS ---
Chart Event Note Chart Event Note:
--- NOTE | 2024-01-21 11:05 | PM.EN ---
Chart Event Note Chart Event Note:
[2024-01-21 11:08] LABS: Basophils Absolute Auto 0.05 K/uL (0.00-0.30); Basophils Percent Auto 0.3 % (0.0-3.0); Eosinophils Absolute Auto 0.17 K/uL (0.00-0.50); Immature Granulocytes Abs Auto 0.17 K/uL (0.00-0.30); Monocytes Percent Auto 4.4 % (0.0-11.0); Neutrophils Percent Auto 80.3 % (42.0-72.0); RDW Coefficient of Variation % 16.6 % (11.5-15.5)
[2024-01-21 11:13] LABS: Albumin* 2.4 g/dL (3.3-5.0)
[2024-01-21 11:16] LABS: Alanine Aminotransferase* 13 U/L (4-35); Alkaline Phosphatase* 133 U/L (40-150); Aspartate Amino Transferase* 22 U/L (12-35); Bilirubin Direct* 0.1 mg/dL (0.0-0.5); Bilirubin Total* 0.3 mg/dL (0.1-1.5); Total Protein* 4.8 g/dL (6.0-8.3)
[2024-01-21 11:52] VITALS: BP 135/66; PULSE 91; RESP 20; TEMP 37.4; O2SAT 95
[2024-01-21] MEDS: cephALEXin 500 MG CAPSULE 1000 MG PO ×2 (11:55→22:24)
[2024-01-21] MEDS: diphenhydrAMINE 25 MG CAPSULE PO ×2 (12:19→22:25)
[2024-01-21 15:00] VITALS: BP 131/72; PULSE 75; RESP 18; TEMP 37.1; O2SAT 95
--- NOTE | 2024-01-21 18:41 | PC.NURSE ---
End of shift: Assumed care of patient at 1530. Reported off that wound vac dressing was changed during day shift with PRN oxycodone given prior. Pt is A&O x4, afebrile and VSS. She had an allergic reaction to the IV Imipenem and received PRN benadryl. IV abx discontinued and transitioned to PO Keflex BID first dose being tonight. PIV in right FA is SL and C/D/I. Enterprise Resource Planning Consultant changed coccyx dressing and left lateral foot dressing this afternoon. Noted 3+ pitting edema to left foot. SCD's in place. Pt is TR q2H and per her request. Chronic Cristobal catheter in place, draining pale yellow urine. Pt reports right hip pain is 7-8/10 in which PRN oxycodone given last @ 1850.
[2024-01-21 19:00] VITALS: BP 126/71; PULSE 86; RESP 18; TEMP 36.7; O2SAT 95
[2024-01-21] MEDS: EMOLLIENT BASE CREAM 10 APPLIC TOPICAL (22:26)
[2024-01-21] MEDS: TRIAMCINOLONE ACETONIDE CREAM 0.1 % 1 APPLIC TOPICAL (22:26)
[2024-01-21] MEDS: ENOXAPARIN 40 MG/0.4 ML INJ SUBCUT (22:27)
[2024-01-22] MEDS: OXYCODONE 5 MG TABLET 7.5 MG PO ×4 (00:39→22:23)
[2024-01-22 00:55] VITALS: BP 125/63; PULSE 63; RESP 16; TEMP 36.4; O2SAT 96
[2024-01-22 03:00] VITALS: BP 135/63; PULSE 65; RESP 14; TEMP 36.4; O2SAT 95
[2024-01-22 06:49] LABS: HCO3 VBG 37 mmol/L (21-28); PCO2 VBG 54 mmHG (40-50); PO2 VBG 63.8 mmHG (25-47); pH VBG 7.444 (7.32-7.43)
[2024-01-22 06:56] LABS: Basophils Percent Auto 0.2 % (0.0-3.0); Eosinophils Percent Auto 3.1 % (0.0-7.0); Hematocrit 33.5 % (33.0-51.0); Hemoglobin* 10.1 gm/dL (12.0-16.0); Immature Granulocytes Pct Auto 1.3 %; Lymphocytes Percent Auto 14.9 % (20-44); Mean Corpuscular HGB Conc 30 gm/dL (32-36); Mean Corpuscular Hemoglobin 27 pg (26-34); Mean Corpuscular Volume 89 fL (80-100); Monocytes Percent Auto 5.6 % (0.0-11.0); Neutrophils Percent Auto 74.9 % (42.0-72.0); Platelet Count* 358 K/uL (140-440); RDW Coefficient of Variation % 16.7 % (11.5-15.5); Red Blood Count 3.77 m/uL (4.00-5.20); White Blood Count* 18.09 K/uL (4.50-11.00)
[2024-01-22 07:00] VITALS: BP 133/60; PULSE 81; RESP 16; TEMP 36.9; O2SAT 97
[2024-01-22 07:03] LABS: Slide Review Reflex No
[2024-01-22 07:13] LABS: Albumin* 2.6 g/dL (3.3-5.0); Chloride* 96 mmol/L (96-114); Sodium* 133 mmol/L (135-149)
[2024-01-22 07:14] LABS: Potassium* 4.6 mmol/L (3.6-5.1)
[2024-01-22 07:16] LABS: Alanine Aminotransferase* 15 U/L (4-35); Alkaline Phosphatase* 145 U/L (40-150); Anion Gap 1 mEq/L (7-15); Aspartate Amino Transferase* 22 U/L (12-35); Bilirubin Total* 0.3 mg/dL (0.1-1.5); Blood Urea Nitrogen* 18 mg/dL (7-30); Carbon Dioxide* 36 mmol/L (20-32); Creatinine* 0.4 mg/dL (0.5-1.5); Est. Creatinine Clearance* 33.84; Estimated Glomerular Filt Rate 102 ml/min; Total Protein* 4.8 g/dL (6.0-8.3)
[2024-01-22 07:17] LABS: Calcium* 8.9 mg/dL (8.4-10.6); Glucose* 99 mg/dL (60-115)
[2024-01-22 07:19] LABS: C Reactive Protein* 2.6 mg/dL (0.5-1.0)
--- NOTE | 2024-01-22 07:55 | PC.NURSE ---
END OF SHIFT NOTE: A&O. VSS ON RA; BIPAP USED DURING HS. AFEBRILE. TURNED AND REPOSITIONED FOR COMFORT. HELLER IN PLACE AND PATENT. PT SLEPT WELL. PRN PAIN MED GIVEN FOR RIGHT HIP DISCOMFORT WITH RELIEF.
[2024-01-22] MEDS: SODIUM CHLORIDE 0.9 % (FLUSH) 10 ML SYRINGE 5 ML IVF ×2 (09:59→22:21)
[2024-01-22] MEDS: METOPROLOL SUCCINATE (XL) 50 MG TAB PO (09:59)
[2024-01-22] MEDS: diphenhydrAMINE 25 MG CAPSULE PO ×3 (10:00→22:21)
[2024-01-22] MEDS: cephALEXin 500 MG CAPSULE 1000 MG PO ×2 (10:00→22:20)
[2024-01-22] MEDS: CETIRIZINE HCL 10 MG TABLET PO ×2 (10:00→22:20)
[2024-01-22] MEDS: FUROSEMIDE 40 MG TABLET PO (10:00)
[2024-01-22] MEDS: GABAPENTIN 300 MG CAPSULE PO ×3 (10:01→22:20)
[2024-01-22] MEDS: EMOLLIENT BASE CREAM 10 APPLIC TOPICAL ×2 (10:02→22:20)
[2024-01-22] MEDS: TRIAMCINOLONE ACETONIDE CREAM 0.1 % 1 APPLIC TOPICAL ×2 (10:02→22:20)
[2024-01-22] MEDS: POTASSIUM CHLORIDE 10 MEQ CAPSULE ER 20 MEQ PO ×2 (10:05→18:14)
[2024-01-22] MEDS: predniSONE 20 MG TABLET PO (10:05)
[2024-01-22 11:00] VITALS: BP 115/53; PULSE 85; RESP 18; TEMP 37.2; O2SAT 97
--- NOTE | 2024-01-22 13:39 | PC.SOCIAL ---
Discharge planning- Per MD, pt is not medically cleared to discharge today. Provided update to Trinity at [facility]. Dtr is bedside today and aware that pt is not discharging. Social work will continue to follow up as needed.
--- NOTE | 2024-01-22 13:51 | P.IMPN_ITS ---
Progress Note: A&P Assessment and plan (1) Cellulitis: Problem details: - L flank, outlined upon admission, Imipenem initiated 01/15/24 - completed 01/20. Oral Keflex to complete total of 10 days of antibiotic therapy. - drug reaction to the bactrim added 01/18 suspected (see photos in separate c carmona entry). held after am dosing of 01/19. Topical triamcinolone and emollient and p.o. prednisone. antihistamines. Continue to monitor as inpatient. Status: Acute (2) Drug reaction: Problem details: likely from the Bactrim zyrtec 10 mg BID, prn benadryl burst of prednisone (again) topical steroid/emollient. follow as inpatient. Status: Acute (3) Sepsis: Problem details: - continues to subjectively and objectively improve - concern given + SIRS criteria with WBC of 30, HR 100s, lactate >2 - source likely urine vs cellulitis vs osteomyelitis, blood and urine cultures currently NGTD - continue Imipenem (01/14) Status: Acute (4) Decubitus ulcers: Problem details: - presacral ulcer covered with Mepilex. 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, stage 4: Problem details: - Chronic right ischial tuberosity wound - Wound clinic following Status: Chronic (6) Acute hypokalemia: Problem details: - replace and follow Status: Acute (7) Anemia: Problem details: - no obvious bleeding, currently Hgb is 9-10 (baseline) - follow Status: Acute (8) CO2 retention: Problem details: - long history of severe CO2 retention, cannot receive supplemental oxygen without BiPAP, RT aware and following - using BIPAP at night Status: Acute Subjective Date Seen: 01/22/24 Interval history: Daily Progress Note - Hospital Medicine Day #: 6 CC: sepsis (resolved), cellulitis, longstanding paralysis - exanthematous drug reaction (day 3) OVERNIGHT UPDATES FROM STAFF & MED, LAB, IMAGING UPDATES stable overnight. feeling improved. Her morbilliform rash down her back and across her abdominal wall has continued to spread; cheeks are red. The actual cellulitis looks more improved. She has been getting Zyrtec 10 mg b.i.d. along with a decreasing dose of p.o. prednisone. I have held the Bactrim. I feel this is the offending agent. She has had rashes to penicillin in the past. She had anaphylactic shock with vancomycin. I did consider DRESS syndrome. However she has had no eosinophilia, creatinine and liver enzymes are all normal. CRP is down trending. All labs reviewed. All imaging from admission is reviewed. Cultures are negative. Objective: Interactive, alert. She looks more flushed than she did yesterday to me. She is complaining of puritis. Vitals: see above Lungs: Clear. Cardiac: S1S2. skin: as above. Near confluent morbilliform eruption down her back and across her anterior abdomen. Thickening of the skin folds along her left hip which have receded from previous markings and seems softer today than yesterday. Disposition/Potential discharge - Likely to return to previous living situation. Exam Const: Vital Signs, click to edit/add: Vital Signs - 24 hr 01/21/24 15:00 01/21/24 15:00 01/21/24 15:00 Temperature 98.7 F Pulse Rate [Pulse Oximeter] 75 75 Respiratory Rate 18 18 Blood Pressure [Le ft Arm] 131/72 Pulse Oximetry 95 95 Oxygen Delivery Me thod Room Air Oxygen Flow Rate 01/21/24 19:00 01/22/24 00:55 01/22/24 00:55 Temperature 98.0 F Pulse Rate [Pulse Oximeter] 86 63 Respiratory Rate 18 16 Blood Pressure [Le ft Arm] 126/71 Pulse Oximetry 95 96 Oxygen Delivery Me thod Room Air Oxygen Flow Rate 01/22/24 00:55 01/22/24 03:00 01/22/24 07:00 Temperature 97.6 F 97.5 F L Pulse Rate [Pulse Oximeter] 63 65 Respiratory Rate 16 14 Blood Pressure [Le ft Arm] 125/63 135/63 Pulse Oximetry 96 95 97 Oxygen Delivery Me thod BiPAP BiPAP Oxygen Flow Rate 0 01/22/24 07:00 01/22/24 07:00 01/22/24 11:00 Temperature 98.5 F 99 F Pulse Rate [Pulse Oximeter] 81 81 85 Respiratory Rate 16 16 18 Blood Pressure [Le ft Arm] 133/60 115/53 L Pulse Oximetry 97 97 Oxygen Delivery Me thod BiPAP BiPAP Oxygen Flow Rate Labs Labs: Laboratory Results - last 24 hr 01/22/24 06:38 WBC 18.09 H RBC 3.77 L Hgb 10.1 L Hct 33.5 MCV 89 MCH 27 MCHC 30 L RDW Coeff of Lynette 16.7 H Plt Count 358 Neut % (Auto) 74.9 H Lymph % (Auto) 14.9 L [place] % (Auto) 5.6 Eos % (Auto) 3.1 Baso % (Auto) 0.2 Neut # (Auto) 13.50 H Lymph # (Auto) 2.70 [place] # (Auto) 1.00 H Eos # (Auto) 0.60 H Baso # (Auto) 0.00 Abs Immat Gran (auto) 0.20 Imm/Tot Granulo (auto) 1.3 VBG pH 7.444 H VBG pCO2 54 H VBG pO2 63.8 H VBG HCO3 37 H Sodium 133 L Potassium 4.6 Chloride 96 Carbon Dioxide 36 H Anion Gap 1 L BUN 18 Creatinine 0.4 L Estimated Creat Clear 33.84 Estimated GFR 102 Glucose 99 Calcium 8.9 Total Bilirubin 0.3 AST 22 ALT 15 Alkaline Phosphatase 145 C-Reactive Protein 2.6 H Total Protein 4.8 L Albumin 2.6 L
--- NOTE | 2024-01-22 14:28 | PC.NURSE ---
End of shift [id number]: Pt A&O x4, afebrile and VSS today. PIV in right FA is SL and C/D/I. Chronic delacruz catheter in place and C/D/I. Pale, yellow urine with sediment draining from catheter. Total output this shift 1150 mL. Pt experiencing increased urticaria r/t all over body rash from allergic reaction to Bactrim. Hvac Design Mechanical Engineer applied emollient cream & triamcinolone to patient's face, chest, back, bilat flanks and thighs. PRN Benadryl dose increased to q4H and it was last given @ 1410. Wound vac dressing, coccyx dressing and x2 left foot dressings all C/D/I - last changed 01/20 and next due to be changed 01/22. Pt c/o chronic right hip pain, PRN oxycodone given last @ 1000. Pt has been repositioned in bed as requested for comfort & offloading.
[2024-01-22 15:00] VITALS: BP 120/56; PULSE 77; RESP 16; TEMP 36.8; O2SAT 92
[2024-01-22 19:00] VITALS: BP 109/52; PULSE 79; RESP 16; TEMP 36.8; O2SAT 91
[2024-01-22] MEDS: ENOXAPARIN 40 MG/0.4 ML INJ SUBCUT (22:19)
[2024-01-23 00:10] VITALS: BP 130/67; PULSE 65; RESP 14; TEMP 36.4; O2SAT 95
[2024-01-23 02:30] VITALS: BP 141/82; PULSE 77; RESP 16; TEMP 36.5; O2SAT 97
[2024-01-23 07:00] VITALS: BP 134/59; PULSE 88; RESP 16; TEMP 36.8; O2SAT 96
[2024-01-23 07:08] LABS: Basophils Percent Auto 0.3 % (0.0-3.0); Eosinophils Percent Auto 4.5 % (0.0-7.0); Hematocrit 35.1 % (33.0-51.0); Hemoglobin* 10.5 gm/dL (12.0-16.0); Immature Granulocytes Pct Auto 1.8 %; Lymphocytes Percent Auto 20.8 % (20-44); Mean Corpuscular HGB Conc 30 gm/dL (32-36); Mean Corpuscular Hemoglobin 27 pg (26-34); Mean Corpuscular Volume 91 fL (80-100); Monocytes Percent Auto 5.9 % (0.0-11.0); Neutrophils Percent Auto 66.7 % (42.0-72.0); Platelet Count* 195 K/uL (140-440); Red Blood Count 3.87 m/uL (4.00-5.20); White Blood Count* 15.62 K/uL (4.50-11.00)
[2024-01-23 07:25] LABS: Chloride* 100 mmol/L (96-114); Potassium* 4.6 mmol/L (3.6-5.1); Sodium* 134 mmol/L (135-149)
[2024-01-23 07:28] LABS: Anion Gap 0 mEq/L (7-15); Blood Urea Nitrogen* 21 mg/dL (7-30); Carbon Dioxide* 34 mmol/L (20-32); Creatinine* 0.4 mg/dL (0.5-1.5); Est. Creatinine Clearance* 33.84; Estimated Glomerular Filt Rate 102 ml/min
[2024-01-23 07:29] LABS: Calcium* 8.7 mg/dL (8.4-10.6); Glucose* 109 mg/dL (60-115)
[2024-01-23 07:32] LABS: Slide Review Reflex Yes
[2024-01-23] MEDS: predniSONE 20 MG TABLET PO (08:10)
[2024-01-23] MEDS: POTASSIUM CHLORIDE 10 MEQ CAPSULE ER 20 MEQ PO (08:10)
[2024-01-23] MEDS: GABAPENTIN 300 MG CAPSULE PO ×2 (08:10→13:42)
[2024-01-23] MEDS: cephALEXin 500 MG CAPSULE 1000 MG PO (08:10)
[2024-01-23] MEDS: FUROSEMIDE 40 MG TABLET PO (08:10)
[2024-01-23] MEDS: CETIRIZINE HCL 10 MG TABLET PO (08:10)
[2024-01-23] MEDS: diphenhydrAMINE 25 MG CAPSULE PO (08:10)
--- NOTE | 2024-01-23 08:10 | PC.NURSE ---
END OF SHIFT NOTE: A&O. VSS ON RA; BIPAP DURING HS. AFEBRILE. T&R WITH PILLOWS FOR COMFORT AND OFFLOADING. PT DID DECLINE REPOSITIONING SEVERAL TIMES DURING SHIFT AND WAS EDUCATED ON WHY REPOSITIONING IS NEEDED. HELLER PATENT. RASH STILL PRESENT; PT REPORTS NOT ITCHY.??
[2024-01-23] MEDS: METOPROLOL SUCCINATE (XL) 50 MG TAB PO (08:11)
[2024-01-23] MEDS: OXYCODONE 5 MG TABLET 7.5 MG PO ×2 (08:11→12:35)
[2024-01-23] MEDS: EMOLLIENT BASE CREAM 10 APPLIC TOPICAL (08:14)
[2024-01-23] MEDS: TRIAMCINOLONE ACETONIDE CREAM 0.1 % 1 APPLIC TOPICAL (08:14)
[2024-01-23 08:27] LABS: Slide Review Acceptable Review (Acceptable)
[2024-01-23 11:00] VITALS: BP 122/53; PULSE 84; RESP 16; TEMP 37.3; O2SAT 94
--- NOTE | 2024-01-23 13:27 | PC.NURSE ---
End of care nursing note: Pt is A&O x4, afebrile and VSS this shift. She has been turned and repositioned per her request as needed. Pt had a small BM this morning. Cristobal catheter intact, draining clear yellow urine. Wound vac, coccyx and x2 wounds left foot dressings were all changed this morning prior to discharge. Pt has chronic right hip pain in which PRN oxycodone provides adequate relief, last given @ 1235. Generalized rash from allergic reaction has improved with PRN benadryl and scheduled creams. Pt reports urticaria has been decreasing. PIV in right FA was discontinued, catheter intact. Pt denies having any nausea or SOB.
--- NOTE | 2024-01-23 14:20 | PC.NURSE ---
Patient discharged home w/ daughter via W/C at 1412. Condition stable.
--- NOTE | 2024-01-23 16:11 | PM.DS1 ---
DS: Providers Provider Date Seen: 01/23/24 Date of admission: 01/16/24 04:36 Primary care physician: Flo Mckeon MD Admitting Clinician: Sol Angelo MD Consults: 01/16/24 08:42 Consult to Wound Care [CONS] Routine Comment: Consulting Provider: Lucía Espinoza Attending Physician on discharge: Melvi Bear MD [facility] Date of Discharge: 01/23/24 DS: Diagnosis Discharge Diagnosis (1) Cellulitis: Status: Acute Problem details: - L flank, outlined upon admission, Imipenem initiated 01/15/24 - completed 01/20. Oral Keflex to complete total of 10 days of antibiotic therapy. - drug reaction to the bactrim added 01/18 suspected (see photos in separate chart entry). held after am dosing of 01/19. Topical triamcinolone and emollient and p.o. prednisone. antihistamines. Continue to monitor as inpatient. (2) Drug reaction: Status: Acute Problem details: likely from the Bactrim zyrtec 10 mg BID, prn benadryl burst of prednisone (again) topical steroid/emollient. follow as inpatient. DS: Summary Hospital Course Hospital Course: FINAL DIAGNOSIS/FOLLOW UP ISSUES: non organizing cellulitis: Left hip and upper buttock. Nothing to culture. Skin was thickened and indurated. Received IV antibiotics and then transition to oral Keflex. Patient looks septic upon arrival and admission quickly cleared. Bactrim allergy, new exposure: Given 1 dose of Bactrim and developed hives across her anterior chest and abdomen. This progressed to gemini cheeks and confluent hives across in her back upper and lower regions. Treated with prednisone, C Zyrtec, Benadryl, topical triamcinolone and Vanicream. BRIEF HOSPITAL COURSE: Patient was admitted for 8 days. Synopsis of acute inpatient issues are outlined above. Chronic medical conditions with notable findings outlined above. initially she presented septic and fatigued. Source of the sepsis was considered to be some left hip cellulitis. She had findings consistent with cellulitis that included red swollen skin with induration without pustule or skin breakdown. This initially was treated with IV imipenem and cilastatin. While this was slow to responded eventually did about day 3 4 of IV antibiotics. Just before discharge which would have been about 5 days she was given an oral Bactrim dose. This Bactrim caused in a confluent morbilliform disabling hive reaction. She was treated with steroids, H2 blockers and topical triamcinolone. She was observed for 2 days and this did lessen. She was discharged on the afternoon of January 22 in stable and improved condition. Her longstanding decubitus ulcers and chronic osteomyelitis were not active nor felt to be part of this presentation. Her wound care continued without interruption which included cleansing and wound VAC management. DISCHARGE MEDICATIONS: See Reconciled list - SIGNIFICANT CHANGES: Keflex for 3 more days Specific instructions to the patient and follow-up are outlined below. REVIEW OF SYSTEMS No new chest pain or dyspnea Pain controlled No voiding difficulties Tolerating diet challenge PHYSICAL EXAM: CONSTITUTIONAL: back to baseline VITAL SIGNS: see record. HEENT: Normocephalic, atraumatic. PERRL, EOMI, conjunctivae pink, no scleral icterus. Ears and nose externally normal. Pharynx normal. NECK: No JVD. No carotid bruit, no thyromegaly, no adenopathy. CHEST: Clear to auscultation bilaterally. HEART: S1 and S2 normal. Edema ABDOMEN: Soft, nontender. Normal bowel sounds. MUSCULOSKELETAL: No gross joint deformity or swelling. NEURO: Cranial nerves intact. Grossly intact. No asymmetric findings. SKIN: hives improved greatly. Cellulitic changes are minimal along the left hip and left inner groin PSYCHIATRIC: Mood euthymic. DISPOSITION: home with family Time spent on discharge 37 minutes. Status at Discharge Functional status at discharge: wheelchair bound Overall status at discharge: patient is progressing back to baseline Time Spent with Patient Time attestation: Total time spent providing and/or coordinating discharge services: Time spent: Greater than 30 minutes Exam Const: Vital Signs, click to edit/add: Vital Signs - 24 hr 01/22/24 19:00 01/23/24 00:10 01/23/24 00:10 Temperature 98.3 F Pulse Rate [Pulse Oximeter] 79 65 Respiratory Rate 16 14 Blood Pressure [Le ft Arm] 109/52 L Pulse Oximetry 91 95 Oxygen Delivery Me thod BiPAP Oxygen Flow Rate 0 Fraction of Inspir ed Oxygen 01/23/24 00:10 01/23/24 02:30 01/23/24 07:00 Temperature 97.5 F L 97.7 F Pulse Rate [Pulse Oximeter] 65 77 Respiratory Rate 14 16 Blood Pressure [Le ft Arm] 130/67 141/82 H Pulse Oximetry 95 97 96 Oxygen Delivery Me thod BiPAP BiPAP Oxygen Flow Rate 0 0 Fraction of Inspir ed Oxygen 2 2 01/23/24 07:00 01/23/24 07:00 01/23/24 11:00 Temperature 98.2 F 99.1 F Pulse Rate [Pulse Oximeter] 88 88 84 Respiratory Rate 16 16 16 Blood Pressure [Le ft Arm] 134/59 L 122/53 L Pulse Oximetry 96 94 Oxygen Delivery Me thod BiPAP Room Air Oxygen Flow Rate Fraction of Inspir ed Oxygen DS: Data Data Completed and Pending Completed studies during hospitalization: Procedures Assistance with Respiratory Ventilation, Greater than 96 Consecutive Hours, Continuous Positive Airway Pressure (08/28/23) Assistance with Respiratory Ventilation, Less than 24 Consecutive Hours, Continuous Positive Airway Pressure (12/08/23) Drainage of Anus, Open Approach, Diagnostic (08/28/23) Drainage of Rectum, Open Approach, Diagnostic (08/28/23) Excision of Duodenum, Via Natural or Artificial Opening Endoscopic, Diagnostic (10/31/22) Excision of Right Pelvic Bone, Open Approach, Diagnostic (08/28/23) Excision of Right Upper Leg Subcutaneous Tissue and Fascia, Open Approach (10/31/22) Excision of Stomach, Pylorus, Via Natural or Artificial Opening Endoscopic, Diagnostic (10/31/22) Insertion of Infusion Device into Superior Vena Cava, Percutaneous Approach (12/08/23) Introduction of Other Anti-infective into Central Vein, Percutaneous Approach (12/08/23) Introduction of Other Gas into Respiratory Tract, Via Natural or Artificial Opening (01/15/23) Introduction of Other Therapeutic Substance into Respiratory Tract, Via Natural or Artificial Opening (08/28/23) Removal of Infusion Device from Great Vessel, External Approach (12/08/23) Transfusion of Nonautologous Red Blood Cells into Peripheral Vein, Percutaneous Approach (10/31/22) Ultrasonography of Superior Vena Cava, Guidance (12/08/23) Labs on day of discharge: Labs from last 24 hours 01/23/24 06:30 WBC 15.62 H RBC 3.87 L Hgb 10.5 L Hct 35.1 MCV 91 MCH 27 MCHC 30 L RDW Coeff of Lynette 17.0 H Plt Count 195 Neut % (Auto) 66.7 Lymph % (Auto) 20.8 Aurora % (Auto) 5.9 Eos % (Auto) 4.5 Baso % (Auto) 0.3 Neut # (Auto) 10.40 H Lymph # (Auto) 3.20 H Aurora # (Auto) 0.90 Eos # (Auto) 0.70 H Baso # (Auto) 0.00 Abs Immat Gran (auto) 0.30 Imm/Tot Granulo (auto) 1.8 Diff Slide Review Acceptable Review Sodium 134 L Potassium 4.6 Chloride 100 Carbon Dioxide 34 H Anion Gap 0 L BUN 21 Creatinine 0.4 L Estimated Creat Clear 33.84 Estimated GFR 102 Glucose 109 Calcium 8.7 Discharge Plan Discharge Disposition: Home w/ Parent or Adult Date of Admission: 01/16/24 04:36 Attending Provider on Discharge: Melvi Bear Consulting Providers: Lucía Espinoza Primary Care Provider: Flo Mckeon Condition: Improved Anticipated Discharge Date/Time: 01/23/24 10:40 Discharge Medications: New triamcinolone acetonide 0.1 % Cream 1 applic topical BID Qty: 60 0RF cephalexin 500 mg Capsule 1,000 mg PO BID Qty: 12 0RF emollient [Vanicream] Cream 10 applic topical BID Qty: 60 0RF Continued oxycodone 5 mg tablet 7.5 mg PO Q4H PRN (Reason: pain) multivitamin Tablet 1 tab PO DAILY Qty: 100 0RF bisacodyl 10 mg suppository 10 mg MI DAILY PRN (Reason: constipation) Qty: 30 0RF zinc sulfate 50 mg zinc (220 mg) capsule 50 mg PO DAILY Qty: 30 0RF ascorbic acid (vitamin C) [Vitamin C] 500 mg tablet 500 mg PO DAILY Qty: 30 0RF gabapentin 300 mg capsule 300 mg PO TID Qty: 90 0RF prednisone 5 mg tablet 10 mg PO DAILY Qty: 60 0RF metoprolol succinate 50 mg capsule,sprinkle,ER 24hr 50 mg PO DAILY Qty: 30 0RF furosemide 40 mg tablet 40 mg PO QAM Qty: 30 0RF Lactobacillus acidophilus 0.5 mg (100 million cell) tablet 50 mmu cells PO TID Qty: 90 0RF loperamide 2 mg capsule 2 mg PO TID PRN (Reason: loose stool) Qty: 30 0RF potassium chloride 10 mEq tablet extended release 20 meq PO BID Qty: 120 0RF acetaminophen 500 mg capsule 1,000 mg PO TID PRNQty: 100 0RF miconazole nitrate 2 % powder 1 applic topical BID PRNQty: 85 0RF Discontinued triamcinolone acetonide 0.1 % cream 1 applic topical BID PRNQty: 80 0RF levofloxacin 500 mg tablet 500 mg PO DAILY Discharge Orders: Discharge Order (Routine); Ordered 01/23/24 Ordered By: Melvi Bear Patient Education: Cephalexin (By mouth), Triamcinolone (On the skin), Cellulitis (GEN) Additional Instructions: Finish three more days of antibiotics Topical steroid and emollient for face, chest/back for any hives Oral Benadryl if needed Activity Level: Activity as Tolerated Discharge Diet: Regular Follow Up Appointments: Flo Mckeon MD [Primary Care Provider] - (for routine f/u only. keep your previous schedule. ) Forms: [facility] Info Instructions
== END 2024-01-23 14:12 | disposition home or self-care (01) | DRG 570 ==
LOC: ED 01-16 03:52 → MEDSURG 01-16 23:56
PROVIDERS: Family Medicine; Admitting Provider Student in an Organized Health Care Education/Training Program; Emergency Provider Emergency Medicine; PCP Family Medicine; Visit Provider Student in an Organized Health Care Education/Training Program
DX: L03.317 Cellulitis of buttock (principal); A41.9 Sepsis, unspecified organism; L89.214 Pressure ulcer of right hip, stage 4; L89.44 Pressure ulcer of contiguous site of back, buttock and hip, stage 4; L03.116 Cellulitis of left lower limb; G82.20 Paraplegia, unspecified; M86.9 Osteomyelitis, unspecified; E87.1 Hypo-osmolality and hyponatremia; E87.29 Other acidosis; E44.1 Mild protein-calorie malnutrition; G37.3 Acute transverse myelitis in demyelinating disease of central nervous system; E87.6 Hypokalemia; D64.9 Anemia, unspecified; M81.0 Age-related osteoporosis without current pathological fracture; N31.9 Neuromuscular dysfunction of bladder, unspecified; F11.90 Opioid use, unspecified, uncomplicated; M06.9 Rheumatoid arthritis, unspecified; I10 Essential (primary) hypertension; Z97.8 Presence of other specified devices; G47.30 Sleep apnea, unspecified; G89.29 Other chronic pain; J44.9 Chronic obstructive pulmonary disease, unspecified; Z79.52 Long term (current) use of systemic steroids; L89.156 Pressure-induced deep tissue damage of sacral region; E88.09 Other disorders of plasma-protein metabolism, not elsewhere classified; Z68.27 Body mass index [BMI] 27.0-27.9, adult; E83.51 Hypocalcemia; L89.159 Pressure ulcer of sacral region, unspecified stage; L50.0 Allergic urticaria; T36.8X5A Adverse effect of other systemic antibiotics, initial encounter; L97.521 Non-pressure chronic ulcer of other part of left foot limited to breakdown of skin
CPT/HCPCS: 36415; 71260; 74177; 80048; 80053; 80076; 81001; 82330; 82803; 83605; 83735; 85025; 85027; 86140; 87040; 87086; 87426; 87493; 87631; 93005; 94761; 99284; 99285; A9270; J0613; J0743; J1650; J1720; J2405; J3480; J7030; J7050; J7512; Q9967

== ENCOUNTER 2024-01-30 12:49 | Outpatient (CLI) | payer MEDICARE, SELFPAY ==
--- OUTSIDE RECORDS SUMMARY | 2024-01-30 12:51 | XMS_ITS | Encounter Summary ---
Author Name Unknown Organization [facility] Address [address] [place] [address] Care Team Providers Care Utilities Estimator And Drafter Name Role Phone Elsewhere, Pcp Primary Care Provider Unavailabl e Encounter Details Date Type Department Care Team (Late st Contact Info) Description 12/01/2023 Clinical Communication Department of Pulmonary Medicine in [address] [phone] [facility] [address] [place] [phone] Social History Tobacco Use Types Packs/Day Years Used Date Smoking Tobacco: Never Smokeless Tobacco: Never Alcohol Use Standard Drinks/Week Comments Defer 0 (1 standard drink = 0.6 oz pur e alcohol) [facility] Utilities Answer Date Recorded In the past 12 months has [facility] [employer], gas, oil, or water [employer] threatened to shut off services in your [...] your living situation today? I have a [facility] place to live 10/19/2023 Sex and [...] Time COVID19 11/13/2023 11/13/2023 12/03/2023 5:55 AM JEWELRY DEPARTMENT SUPERVISOR documented as of this encounter Care Teams Utilities Estimator And Drafter Relationship Specialty Start Date End Date Elsewhere, Pcp PCP - General Internal Medicine 12/09/23 documented as of this encounter
--- OUTSIDE RECORDS SUMMARY | 2024-01-30 12:51 | XMS_ITS | Encounter Summary ---
Author Name Unknown Organization [facility] Address [address] [place] [address] Care Team Providers Care Management Manager Name Role Phone Osiris Otero APRN, C.N.P., R.N. Primary Care Provider Encounter Details Date Type Department Care Team (Latest Contact Info) Description 11/28/2023 4:00 PM MACHINE OPERATOR PACKAGING External Outreach [facility] [place] [address] [place] [address] Osiris Otero APRN C.N.P., R.N. [address] [place] [phone] Chronic Diastolic (Congestive) Heart Failure (HCC) (Primary [...] Recorded In the past 12 months has [employer] gas, oil, or water [employer] threatened to shut off services in your [...] Comments Blood Pressure 110/68 11/28/2023 8:43 AM MACHINE OPERATOR PACKAGING Pulse 76 11/28/2023 8:43 AM MACHINE OPERATOR PACKAGING Temperature 36.7 ??C (98 ??F) 11/28/2023 8:43 AM MACHINE OPERATOR PACKAGING Respiratory Rate 18 11/28/2023 8:43 AM MACHINE OPERATOR PACKAGING Oxygen Saturation 95% 11/28/2023 8:43 AM MACHINE OPERATOR PACKAGING RA Inhaled Oxygen Concentration - - Weight 58.8 kg (129 lb 9.6 oz) 11/28/2023 8:43 A M MACHINE OPERATOR PACKAGING Height - - Body Mass Index 25.44 10/19/2023 5:00 AM MACHINE OPERATOR PACKAGING documented in this encounter Progress Notes * Osiris Otero APRN, C.N.P., R.N. - 11/28/2023 4:00 PM CST CHIEF COMPLAINT / REASON FOR VISIT The resident is being seen at [place], [place] for Discharge H&P Visit Type: In Person Face-to- Face visit SUBJECTIVE HISTORY OF PRESENT ILLNESS Obtained from Patient, Nursing, and SBAR: SNF VISIT for Post Hospital Follow up Visit This resident was recently hospitalized at: [facility] Date of hospitalization: DATE OF ADMISSION: 10/19/2023 DATE OF DISCHARGE: 10/22/2023 Reason for hospitalization: Acute Respiratory Failure With Hypoxia Prior to hospitalization patient did receive levofloxacin for 5 days. On 10/18/2023 she developed fever, cough, shortness of breath hypoxia. She was transferred to [place]. Her MRSA swab returned positive, Infectious Disease [...] off her oxygen. [facility] She did have intermittent episodes of hypoxia where she would go down to 82% especially if on her left side. She would rebound back to 95% in about 15-30 seconds. Patient was previously hospitalized at [facility] from 08/28/2023 through 09/17/2023, she has a [...] obstructive sleep apnea. She is followed by [facility] wound care provider. Patient tested positive for COVID on 11/13/23. She said she had a day where she was very sleepy and acouple of days where she did not have much of an appetite. She did not receive any COVID therapies. Patient currently has wound VAC in place and will need to have this changed 3 times a week. She follows with the [facility]. She has a hospital bed at home with an air mattress. She alsohas a Dustin lift at home. She was previously living at home with family. Patient will discharge with home physical, occupational, speech and nursing and hospital aides and assistants teacher. I personally reviewed the most [...] home health nursing and follow up with [facility]. Multivitamin, zinc. Oxycodone to 7.5 mg four times per day as needed for pain.Unsure of discharge date, will send #45 tablets of oxycodone to [facility] in [place] once discharge date is set. #2 Chronic Diastolic (Congestive) Heart Failure (HCC) Furosemide, metoprolol last echocardiogram was January 2023 with EF greater than 75% #4 Obstructive Sleep Apnea Goal is 88-90%, requires BiPAP when sleeping, BIPAP at night and when napping. 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 Will discontinue Tessalon Perles and decrease potassium [...] other IDT members. Total time 60 minutes. INE OPERATOR PACKAGING documented in this encounter Plan of Treatment [...] Time COVID19 11/13/2023 11/13/2023 12/03/2023 5:55 AM MACHINE OPERATOR PACKAGING documented as of this encounter Care Teams Management Manager Relationship Specialty Start Date End Date Osiris Otero APRN, C.N.P., R.N. [address] [place] [phone] PCP - General Family Medicine 09/17/23 12/08/23 documented as of this encounter
--- OUTSIDE RECORDS SUMMARY | 2024-01-30 12:51 | XMS_ITS | Encounter Summary ---
Author Name Unknown Organization [facility] Address [address] [place] [address] Care Team Providers Care Short Goods Drier Name Role Phone Osiris Otero APRN, C.N.P., R.N. Primary Care Provider Encounter Details Date Type Department Care Team (Late st Contact Info) Description 11/25/2023 Clinical Communication [facility] in [place] [address] [place] [phone] Osiris Otero APRN, C.N.P., R.N. [address] [place] [phone] Social History Tobacco Use Types Packs/Day Years Used Date Smoking Tobacco: Never Smokeless Tobacco: Never Alcohol Use Standard Drinks/Week Comments Defer 0 (1 standard drink = 0.6 oz pur e alcohol) [facility] Utilities Answer Date Recorded In the past 12 months has [employer], gas, oil, or water [employer] threatened to shut off services in your [...] your living situation today? I have a [facility] place to live 10/19/2023 Sex [...] tablet Refill: 0 Please send half tablets. AT CDL A DRIVER documented in this encounter Plan of Treatment Not on file documented as of this encounter Visit Diagnoses Not on filedocumented in this encounter Care Teams Short Goods Drier Relationship Specialty Start Date End Date Osiris Otero APRN, C.N.P., R.N. [address] [place] [phone] PCP - General Family Medicine 09/17/23 12/08/23 documented as of this encounter
--- OUTSIDE RECORDS SUMMARY | 2024-01-30 12:51 | XMS_ITS | Referral Summary ---
Author Name Unknown Organization [facility] Address [address] [place] [address] Care Team Providers Care Utility Worker Forge Name Role Phone Elsewhere, Pcp Primary Care Provider Unavailabl e Source Comments Patient records contain information from all sites at [facility]. For routine questions regarding patient records, call [phone] during business hours, M-F 8:00 AM - 5:00 PM Central Time. Record requests for emergency care only can be directed to [phone] at any time.[facility] Encounters Date Type Department Care Team Description 12/01/2023 Orders Only Department of Physical Medicine and Rehabilitation in [place], [place] [address] [place] [address] Charlotte Craig, [facility] CARE ADMINISTRATOR 12/01/2023 Clinical Communication Department of Pulmonary Medicine in [place], [place] [address] [place] [address] Mercy Poe, P.A.-C. 11/28/2023 Clinical Communication Senior Services in [place] [address] [place] [address] Haven Saxena, RCarleen 11/28/2023 4:00 PM INSPECTOR OF DREDGING External Outreach Senior Services in [place] [address] [place] [phone] Osiris Otero, AMIRAH, C.N.P., R.N. Chronic Diastolic [...] Resonance Disorder 11/26/2023 Documentation Senior Services in [address] [address] Osiris Otero APRN, C.N.P., R.N. 11/25/2023 Clinical Communication Senior Services in [place] [address] [place] [address] Osiris Otero APRN, C.N.P., R.N. 11/10/2023 Orders Only Senior Services in [address] [address] Osiris Otero APRN, C.N.P., R.N. Neurogenic Bladder (Primary Dx) 11/07/2023 9:00 AM INSPECTOR OF DREDGING External Outreach Senior Services in [address] [address] Fernando Renee M.D. 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 Hypokalemia Discharge Disposition: Home or Self Care 10/31/2023 10:00 AM [facility] External Outreach Senior Services in [place] [address] [place] [address] Osiris Otero APRN, C.N.P., R.N. 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 ([facility]); Anemia; Arthritis Rheumatoid ([facility]); Diarrhea; Edema Localized; Hypertension Essential Primary; Neurogenic Bladder; Osteoporosis; Other Acidosis; Other Adrenocortical Insufficiency (HCC); Pain Low Back Chronic; Voice And Resonance Disorder; Obstructive Sleep Apnea Adult; Paraplegia ([facility]) from Last 3 Months Allergies Active Allergy Reactions Criticality Noted Date Comments Piperacillin Other (see comments) 09/18/2023 Per SNF Per patient, has tolerated Augmentin Tazobactam Other (see comments) 09/18/2023 Per SNF Vancomycin Other (see comments) 09/18/2023 Per SNF Medications Medication Sig Dispensed Refills Start Date End Date Status multivitamin tablet Take 1 tablet by mouth daily. 09/17/2023 Active zinc sulfate (ZINCATE) 220 (50 mg zinc) capsule Take 100 mg by mouth daily. 09/18/2023 Active omeprazole (PriLOSEC) [address] capsule Take 20 mg by mouth 2 (two) times a day before breakfast and dinner. 09/18/2023 Active gabapentin (NEURONTIN) 300 mg capsule Take 300 mg by mouth 3 (three) times a day. 09/17/2023 Active Lactobacillus acidophilus 100 million cell capsule Take 1 capsule by mouth daily. In evening 09/17/2023 Active triamcinolone (KENALOG) 0.1 % ointment Apply 1 Application topically 2 (two) times a day as needed for rash. 09/17/2023 Active acetaminophen (TYLENOL) 500 mg tablet Take 2 tablets (1,000 mg total) by mouth 3 (three) times a day. 09/19/2023 Active bisacodyL (DULCOLAX) 10 mg suppository Insert 10 mg into the rectum 2 (two) times a day as needed for constipation. Active ascorbic acid, vitamin C, (VITAMIN C) 1,000 mg tablet Take 1 tablet (1,000 mg total) by mouth daily. 30 tablet 10/27/2023 Active predniSONE (DELTASONE) 10 mg tablet Take 1 tablet (10 mg total) by mouth daily. Resume usual dose of prednisone 10 mg daily on 10/27/23 30 tablet 10/27/2023 Active metoprolol succinate (TOPROL-XL) 50 mg 24 hr tablet Take 1 tablet (50 mg total) by mouth daily. Do not crush or chew. 30 tablet 10/27/2023 Active miconazole (MICATIN) 2 % powder Apply 1 Application topically 2 (two) times a day. Apply to abdominal and groin folds. 43 g 10/27/2023 Active carboxymethylcellul ose (REFRESH PLUS) 0.5 % ophthalmic solution Administer 1 drop into both eyes 3 (three) times a day as needed for dry eyes. 70 each 10/27/2023 Active furosemide (LASIX) 40 mg tablet Take 1 tablet (40 mg total) by mouth daily. 30 tablet 10/27/2023 Active ipratropium (ATROVENT) 0.02 % nebulizer solution Inhale 2.5 mL (500 mcg total) by nebulization 3 (three) times a day. 75 mL 10/27/2023 Active oxyCODONE (ROXICODONE) 15 mg immediate release tabletIndications:C hronic Pain/Nonacute Pain Take 0.5 tablets (7.5 mg total) by mouth 4 (four) times a day as needed for moderate pain or score 4-6 of 10 or severe pain or score 7-10 of 10 Indication: Chronic Pain/Nonacute Pain. (at least 4 hours apart) 30 tablet 11/25/2023 Active loperamide (IMODIUM A-D) 2 mg capsule Take 2 mg by mouth 3 (three) times a day before meals. Active DME Bi-level PAPIndications:Obst ructive Sleep Apnea Adult DME Order 1 each 11/28/2023 Active potassium chloride (KLOR-CON M/KDUR) 20 mEq ER tablet Take 1 tablet (20 mEq total) by mouth daily with breakfast. 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 [facility] [employer] [facility] [employer] [facility] to live 10/19/2023 Sex and Gender Information Value Date Recorded Sex Assigned at Not on file Gender Identity Not on file Sexual Orientation Not on file Last Filed Vital Signs Vital Sign Reading Time Taken Comments Blood Pressure 110/68 11/28/2023 8:43 AM INSPECTOR OF DREDGING Pulse 76 11/28/2023 8:43 AM INSPECTOR OF DREDGING Temperature 36.7 ??C (98 ??F) 11/28/2023 8:43 AM INSPECTOR OF DREDGING Respiratory Rate 18 11/28/2023 8:43 AM INSPECTOR OF DREDGING Oxygen Saturation 95% 11/28/2023 8:43 AM INSPECTOR OF DREDGING RA Inhaled Oxygen Concentration - - Weight 58.8 kg (129 lb 9.6 oz) 11/28/2023 8:43 A M INSPECTOR OF DREDGING Height 152 cm (4' 11.84) 10/19/2023 5:00 AM INSPECTOR OF DREDGING Body Mass Index 25.44 10/19/2023 5:00 AM INSPECTOR OF DREDGING Plan of Treatment Not on file Procedures Procedure Name Priority Date/Time Associated Diagnosis Comments EXTM HOME SARS CORONAVIRUS-2 (COVID-19) ANTIGEN, V Routine 11/13/2023 BASIC METABOLIC PANEL, S/P Routine 11/04/2023 6:52 AM INSPECTOR OF DREDGING Hypokalemia from Last 3 Months Results * (ABNORMAL) EXT Home SARS Coronavirus-2 (COVID-19) Antigen (11/13/2023) EXT Home SARS-CoV-2 Antigen Presumptive Positive(A) Presumptive Negative OTHER (SPECIFY IN COOKER HELPER) Swab 11/13/2023 Historical Provider LAB MICROBIOLOGY - G ENERAL ORDERABLES OTHER (SPECIFY IN COOKER HELPER) N/A * (ABNORMAL) Basic Metabolic Panel (11/04/2023 6:52 AM INSPECTOR OF DREDGING) Potassium, P 4.1 3.6 - 5.2 mmol/L 11/04/2023 8:14 AM INSPECTOR OF DREDGING NPRG Sodium, P 142 135 - 145 mmol/L 11/04/2023 8:14 AM INSPECTOR OF DREDGING NPRG Chloride, P 102 98 - 107 mmol/L 11/04/2023 8:14 AM INSPECTOR OF DREDGING NPRG Bicarbonate, P 30(H) 22 - 29 mmol/L 11/04/2023 8:14 AM INSPECTOR OF DREDGING NPRG Anion Gap, P 10 7 - 15 11/04/2023 8:14 AM INSPECTOR OF DREDGING NPRG BUN (Blood Urea Nitrogen), P 21 6 - 21 mg/dL 11/04/2023 8:14 AM INSPECTOR OF DREDGING NPRG Creatinine 0.28(L) 0.59 - 1.04 mg/dL 11/04/2023 8:14 AM INSPECTOR OF DREDGING NPRG Estimated GFR (eGFR) >90 >=60 mL/min/BSA 11/04/2023 8:14 AM INSPECTOR OF DREDGING NPRG Comment: Estimated GFR calculated using the 2020 CKD_EPI creatinine equation. Calcium, Total, P 9.1 8.8 - 10.2 mg/dL 11/04/2023 8:14 AM INSPECTOR OF DREDGING NPRG Glucose, P 79 70 - 140 mg/dL 11/04/2023 8:14 AM INSPECTOR OF DREDGING NPRG Blood (Blood, Venous) 11/04/2023 6:52 AM INSPECTOR OF DREDGING 11/04/2023 7:43 AM INSPECTOR OF DREDGING Osiris Otero APRN, C.N.P., R.N. LAB B LOOD ADD-ON [facility] [address] [place] [address], [place] NPRG [facility] [address] [place] [address] from Last 3 Months Advance Directives For more information, please contact: [phone] Documents on File Type Date Recorded Patient Associate Director Data & Analytics Expl anation Advance Directives 09/19/2023 4:06 PM POLS T/MOLST * DNR/DNI (Latest Code Status on File) Date Activated Date Inactivated Comments 10/19/2023 6:50 PM 10/27/2023 4:16 PM * Full Code Date Activated Date Inactivated Comments 10/19/2023 2:13 AM 10/19/2023 6:50 PM Question Answer Comments Full Code: Discussed Care Teams Utility Worker Forge Relationship Specialty Start Date End Date Elsewhere, Pcp PCP - General Internal Medicine 12/09/23
--- OUTSIDE RECORDS SUMMARY | 2024-01-30 12:51 | XMS_ITS | Encounter Summary ---
Author Name Unknown Organization [facility] Address [address] [place] [address] Care Team Providers Care Manufacturing Industrial Engineer Name Role Phone Osiris Otero APRN, C.N.P., R.N. Primary Care Provider Reason for Referral * Outpatient (Routine) - Authorized Specialty Diagnoses / Procedures Referred By Contfarideh t Referred To Contact Urology Diagnoses Neurogenic Bladder Osiris Otero APRN C.N.P., R.N. [address] [place] [address] [facility] Region Referral ID Status Reason Start Date Expiration Date V isits Requested Visits Authorized [id number] Authorized 11/10/2023 05/11/2025 1 1 NING ASSOCIATE Encounter Details Date Type Department Care Team (Late st Contact Info) Description 11/10/2023 Orders Only Senior Services in [place] [address] [place] [phone] Osiris Otero APRN, C.N.P., R.N. [address] [place] [address] Neurogenic Bladder (Primary Dx) Social [...] Primary documented in this encounter Care Teams Manufacturing Industrial Engineer Relationship Specialty Start Date End Date Osiris Otero APRN, C.N.P., R.N. [address] [place] [address] PCP - General Family Medicine 09/17/23 12/08/23 documented as of this encounter
--- OUTSIDE RECORDS SUMMARY | 2024-01-30 12:51 | XMS_ITS | Encounter Summary ---
Author Name Unknown Organization [facility] Address [address] [place] [address] Care Team Providers Care Gate Mortiser Operator Name Role Phone Osiris Otero APRN C.N.P., R.N. Primary Care Provider Encounter Details Date Type Department Care Team (Latest Contact Info) Description 11/04/2023 12:13 AM TAPE MAKING MACHINE OPERATOR - 11/04/2023 11:59 PM [facility] Hospital Encounter Department of Laboratory Medicine in [place], [place] [address] [place] [address] Osiris Otero APRN, C.N.P., R.N. [address] [place] [phone] Hypokalemia Discharge Disposition: Home or Self Care Social History Tobacco Use Types Packs/Day Years Used Date Smoking Tobacco: Never Smokeless Tobacco: Never Alcohol Use Standard Drinks/Week Comments Defer 0 (1 standard drink = 0.6 oz pur e alcohol) [facility] Utilities Answer Date Recorded In the past 12 months has [employer] electric, gas, oil, or water company threatened [...] your living situation today? I have a [facility] place to live 10/19/2023 Sex and [...] mouth 3 (three) times a day. 09/19/2023 ascorbic acid, vitamin C, (VITAMIN C) 1,000 mg tablet Take 1 tablet (1,000 mg total) by mouth daily. 30 tablet 10/27/2023 bisacodyL (DULCOLAX) 10 mg suppository Insert 10 mg into the rectum 2 (two) times a day as needed for constipation. carboxymethylcellulos e (REFRESH PLUS) 0.5 % ophthalmic solution Administer 1 drop into both eyes 3 (three) times a day as needed for dry eyes. 70 each 10/27/2023 furosemide (LASIX) 40 mg tablet Take 1 tablet (40 mg total) by mouth daily. 30 tablet 10/27/2023 gabapentin (NEURONTIN) 300 mg capsule Take 300 mg by mouth 3 (three) times a day. 09/17/2023 ipratropium (ATROVENT) 0.02 % nebulizer solution Inhale 2.5 mL (500 mcg total) by nebulization 3 (three) times a day. 75 mL 10/27/2023 Lactobacillus acidophilus 100 million cell capsule Take 1 capsule by mouth daily. In evening 09/17/2023 metoprolol succinate (TOPROL-XL) 50 mg 24 hr tablet Take 1 tablet (50 mg total) by mouth daily. Do not crush or chew. 30 tablet 10/27/2023 miconazole (MICATIN) 2 % powder Apply 1 Application topically 2 (two) times a day. Apply to abdominal and groin folds. 43 g 10/27/2023 multivitamin tablet Take 1 tablet by mouth daily. 09/17/2023 omeprazole (PriLOSEC) [address] capsule Take 20 mg by mouth 2 (two) times a day before breakfast and dinner. 09/18/2023 predniSONE (DELTASONE) 10 mg tablet Take 1 tablet (10 mg total) by mouth daily. Resume usual dose of prednisone 10 mg daily on 10/27/23 30 tablet 10/27/2023 triamcinolone (KENALOG) 0.1 % ointment Apply 1 Application topically 2 (two) times a day as needed for rash. 09/17/2023 zinc sulfate (ZINCATE) 220 (50 mg zinc) capsule Take 100 mg by mouth daily. 09/18/2023 benzonatate (TESSALON PERLES) 100 mg capsule Take 1 capsule (100 mg total) by mouth 3 (three) times a day as needed for cough. 10/14/2023 11/28/2023 loperamide (IMODIUM A-D) 2 mg capsule Take 2 mg by mouth 3 (three) times a day before meals. 09/17/2023 11/07/2023 nystatin (NYSTOP) 100,000 unit/gram powder Apply 1 Application topically 2 (two) times a day. Apply to abd folds and groin area 09/18/2023 11/07/2023 oxyCODONE (ROXICODONE) 5 mg immediate release tabletIndications:Chr onic Pain/Nonacute Pain Take 1.5 tablets (7.5 mg total) by mouth 4 (four) times a day as needed for moderate pain or score 4-6 of 10 or severe pain or score 7-10 of 10 Indication: Chronic Pain/Nonacute Pain. (at least 4 hours apart) 60 tablet 10/31/2023 11/25/2023 potassium chloride (KLOR-CON M/KDUR) 20 mEq ER tablet Take 1 tablet (20 mEq total) by mouth 3 (three) times a day with meals. 10/14/2023 11/28/2023 documented as of this encounter Plan of Treatment Not on file documented as of this encounter Procedures Procedure Name Priority Date/Time Associated Diagnosis Comments BASIC METABOLIC PANEL, S/P Routine 11/04/2023 6:52 AM TAPE MAKING MACHINE OPERATOR Hypokalemia documented in this encounter Results * (ABNORMAL) Basic Metabolic Panel (11/04/2023 6:52 AM TAPE MAKING MACHINE OPERATOR) Potassium, P 4.1 3.6 - 5.2 mmol/L 11/04/2023 8:14 AM TAPE MAKING MACHINE OPERATOR NPRG Sodium, P 142 135 - 145 mmol/L 11/04/2023 8:14 AM TAPE MAKING MACHINE OPERATOR NPRG Chloride, P 102 98 - 107 mmol/L 11/04/2023 8:14 AM TAPE MAKING MACHINE OPERATOR NPRG Bicarbonate, P 30(H) 22 - 29 mmol/L 11/04/2023 8:14 AM TAPE MAKING MACHINE OPERATOR NPRG Anion Gap, P 10 7 - 15 11/04/2023 8:14 AM TAPE MAKING MACHINE OPERATOR NPRG BUN (Blood Urea Nitrogen), P 21 6 - 21 mg/dL 11/04/2023 8:14 AM TAPE MAKING MACHINE OPERATOR NPRG Creatinine 0.28(L) 0.59 - 1.04 mg/dL 11/04/2023 8:14 AM TAPE MAKING MACHINE OPERATOR NPRG Estimated GFR (eGFR) >90 >=60 mL/min/BSA 11/04/2023 8:14 AM TAPE MAKING MACHINE OPERATOR NPRG Comment: Estimated GFR calculated using the 2020 CKD_EPI creatinine equation. Calcium, Total, P 9.1 8.8 - 10.2 mg/dL 11/04/2023 8:14 AM TAPE MAKING MACHINE OPERATOR NPRG Glucose, P 79 70 - 140 mg/dL 11/04/2023 8:14 AM TAPE MAKING MACHINE OPERATOR NPRG Blood (Blood, Venous) 11/04/2023 6:52 AM TAPE MAKING MACHINE OPERATOR 11/04/2023 7:43 AM TAPE MAKING MACHINE OPERATOR Elizabeth Wright APRNNBuck, R.N. LAB B LOOD ADD-ON [facility] [address] [place] [address], [facility] NPRG [facility] [address] [place] [address] documented in this encounter Visit Diagnoses Diagnosis Hypokalemia documented in this encounter Care Teams Gate Mortiser Operator Relationship Specialty Start Date End Date Osiris Otero APRN, C.N.P., R.N. [address] [place] [address] PCP - General Family Medicine 09/17/23 12/08/23 documented as of this encounter
--- OUTSIDE RECORDS SUMMARY | 2024-01-30 12:51 | XMS_ITS ---
Author Name Unknown Organization [facility] Address [address] [place] [address] Care Team Providers Care Shuttle Car Operator Name Role Phone Unavailable Unavailable Unavailable Surgery Details Not on file Complications Check Surgery Details section. Procedure Estimated Blood Loss Check Surgery Details section. Procedure Findings Check Surgery Details section. Procedure Specimens Taken Check Surgery Details section.
--- OUTSIDE RECORDS SUMMARY | 2024-01-30 12:51 | XMS_ITS | Encounter Summary ---
Author Name Unknown Organization [facility] Address [address] [place] [address] Care Team Providers Care Cotton Acreage Measurer Name Role Phone Osiris Otero APRN, C.N.P., R.N. Primary Care Provider Encounter Details Date Type Department Care Team (Late st Contact Info) Description 11/26/2023 Documentation Senior Services in [place] [address] [place] [phone] Osiris Otero APRN, C.N.P., R.N. [address] [place] [phone] Social History Tobacco Use Types Packs/Day Years Used Date Smoking Tobacco: Never Smokeless Tobacco: Never Alcohol Use Standard Drinks/Week Comments Defer 0 (1 standard drink = 0.6 oz pur e alcohol) [facility] Utilities Answer Date Recorded In the past 12 months has [employer] gas, oil, or water [employer] threatened to shut off services in your [...] living situation today? I have a [facility] place to live 10/19/2023 Sex and Gender Information Value Date Recorded Sex Assigned at Not on file Gender Identity Not on file Sexual Orientation Not on file documented as of this encounter Progress Notes * Sol Mills L.P.N. - 11/26/2023 12:25 PM CST Encounter created to enter external lab results. L OPERATOR documented in this encounter Plan of Treatment Not on file documented as of this encounter Procedures Procedure Name Priority Date/Time Associated Diagnosis Comments EXTM HOME SARS CORONAVIRUS-2 (COVID-19) ANTIGEN, V Routine 11/13/2023 documented in this encounter Results * (ABNORMAL) EXT Home SARS Coronavirus-2 (COVID-19) Antigen (11/13/2023) EXT Home SARS-CoV-2 Antigen Presumptive Positive(A) Presumptive Negative OTHER (SPECIFY IN DATA ABSTRACTOR) Swab 11/13/2023 Historical Provider LAB MICROBIOLOGY - G ENERAL ORDERABLES OTHER (SPECIFY IN DATA ABSTRACTOR) N/A documented in this encounter Visit Diagnoses Not on filedocumented in this encounter Additional Health Concerns Infection Onset Date Last Indicated Resolved Time COVID19 11/13/2023 11/13/2023 12/03/2023 5:55 AM DRILL OPERATOR documented as of this encounter Care Teams Cotton Acreage Measurer Relationship Specialty Start Date End Date Osiris Otero APRN, C.N.P., R.N. [address] [place] [phone] PCP - General Family Medicine 09/17/23 12/08/23 documented as of this encounter
--- OUTSIDE RECORDS SUMMARY | 2024-01-30 12:51 | XMS_ITS | Encounter Summary ---
Author Name Unknown Organization [facility] Address [address] [place] [address] Care Team Providers Care Electrode Cleaner Name Role Phone Osiris Otero APRN, C.N.PRoberto, R.N. Primary Care Provider Reason for Referral * Outpatient (Routine) - Authorized Specialty Diagnoses / Procedures Referred By Paresh palomino Referred To Contact Pulmonary Medicine Diagnoses Orthopnea Osiris Otero APRN, C.N.P., R.N. [address] [place] [address] [facility] Referral ID Status Reason Start Date Expiration Date Visits Requested Visits Authorized [id number] Authorized Specialty Services Required 10/31/2023 05/01/2025 1 1 D ADMINISTRATIVE ASSISTANT Encounter Details Date Type Department Care Team (Latest Contact Info) Description 10/31/2023 10:00 AM FIELD ADMINISTRATIVE ASSISTANT External Outreach Senior Services in [place] [address] [place] [address] Osiris Otero APRN, C.N.P., R.N. [address] [place] [phone] Orthopnea (Primary Dx); Pressure Injury (Ulcer) Of [...] Resonance Disorder; Obstructive Sleep Apnea Adult; Paraplegia ([facility]) Social History Tobacco Use Types Packs/Day Years Used Date Smoking Tobacco: Never Smokeless Tobacco: Never Tobacco Cessation:Counseling Given: Not Answered Alcohol Use Standard Drinks/Week Comments Defer 0 (1 standard drink = 0.6 oz pur e alcohol) [facility] Utilities Answer Date Recorded In the past 12 months has [employer], gas, oil, or water [employer] threatened to shut off services in your [...] living situation today? I have a [facility] place to live 10/19/2023 Sex and Gender Information Value Date Recorded Sex Assigned at Not on file Gender Identity Not on file Sexual Orientation Not on file documented as of this encounter Last Filed Vital Signs Vital Sign Reading Time Taken Comments Blood Pressure 110/62 10/31/2023 9:01 AM FIELD ADMINISTRATIVE ASSISTANT Pulse 98 10/31/2023 9:01 AM FIELD ADMINISTRATIVE ASSISTANT Temperature 36.3 ??C (97.4 ??F) 10/31/2023 9:01 AM CS T Respiratory Rate 18 10/31/2023 9:01 AM FIELD ADMINISTRATIVE ASSISTANT Oxygen Saturation 95% 10/31/2023 9:01 AM FIELD ADMINISTRATIVE ASSISTANT Inhaled Oxygen Concentration - - Weight 61.2 kg (135 lb) 10/31/2023 9:01 AM FIELD ADMINISTRATIVE ASSISTANT Height - - Body Mass Index 26.5 10/19/2023 5:00 AM FIELD ADMINISTRATIVE ASSISTANT documented in this encounter Progress Notes * Sol Mills L.P.N. - 10/31/2023 10:00 AM CST SNF VISIT for Post Hospital Follow up Visit This resident was recently hospitalized at: [facility] Date of hospitalization: DATE OF ADMISSION: 10/19/2023 [...] wound. Wounds/L/D/A: None SNF Nurse concerns: unknown D ADMINISTRATIVE ASSISTANT * Osiris Otero APRN, ElizabethN.P., R.N. - 10/31/2023 10:00 AM CST CHIEF COMPLAINT / REASON FOR VISIT The resident is being seen at [place], [place] for Post hospitalization Follow up Visit Type: In Person Face-to- Face visit SUBJECTIVE HISTORY OF PRESENT ILLNESS Obtained from Patient, Nursing, and SBAR: SNF VISIT for Post Hospital Follow up Visit This resident was recently hospitalized at: [facility] Date of hospitalization: DATE OF ADMISSION: 10/19/2023 DATE OF DISCHARGE: 10/22/2023 Reason for hospitalization: Acute Respiratory Failure With Hypoxia Prior to hospitalization patient did receive levofloxacin for 5 days. On 10/18/2023 she developed fever, cough, shortness of breath hypoxia. She was transferred to [place]. Her MRSA swab returned positive, Infectious Disease [...] off her oxygen. She discharged back to residential facility. She did have intermittent episodes of hypoxia where she would go down to 82% especially if on her left side. She would rebound back to 95% in about 15-30 seconds. Patient was previously hospitalized at [facility] from 08/28/2023 through 09/17/2023, she [...] obstructive sleep ap[facility]. [facility]. 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 Obstructive Sleep Apnea Adult 18. 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 Takes gabapentin three times per day #6 Anemia CBC next week #7 Arthritis Rheumatoid ([facility]) Prednisone 10 mg daily (was stress dosed and is back to 10 mg daily) #8 Atrial Fibrillation Unspecified ([facility]) History of, not on anticoagulation, does take metoprolol #9 Diarrhea Scheduled loperamide and has daily probiotic #10 Edema Localized Furosemide 40 mg daily and potassium 20 mEq three times a day ([facility] on 11/04) #11 Hypertension Essential Primary Metoprolol (discharged on tartrate and succinate). 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 Total time 40 minutes. D ADMINISTRATIVE ASSISTANT documented in this encounter Miscellaneous Notes * Addendum Note - Hermes Edouard R.N. - 10/31/2023 10:00 AM CSTAddended by: HERMES EDOUARD on: 11/05/2023 12:30 PM Modules accepted: Orders D ADMINISTRATIVE ASSISTANT documented in this encounter Plan of Treatment [...] (HCC) documented in this encounter Care Teams Electrode Cleaner Relationship Specialty Start Date End Date Osiris Otero APRN, C.N.P., R.N. [address] [place] [phone] PCP - General Family Medicine 09/17/23 12/08/23 documented as of this encounter
--- OUTSIDE RECORDS SUMMARY | 2024-01-30 12:51 | XMS_ITS | Encounter Summary ---
Author Name Unknown Organization [facility] Address [address] [place] [address] Care Team Providers Care Cataloging Assistant Name Role Phone Shanna Elizabeth Murcia APRNNJuan., R.N. Primary Care Provider Encounter Details Date Type Department Care Team (Late st Contact Info) Description 12/01/2023 Orders Only Department of Physical Medicine and Rehabilitation in [place], [place] [address] [place] [phone] Charlotte Craig, [facility]SENIOR APPLICATION SOFTWARE ENGINEER [address] [place] [address] Social History Tobacco Use Types Packs/Day Years Used Date Smoking Tobacco: Never Smokeless Tobacco: Never Alcohol Use Standard Drinks/Week Comments Defer 0 (1 standard drink = 0.6 oz pur e alcohol) [facility] Utilities Answer Date Recorded In the past 12 months has [employer], gas, oil, or water [employer] threatened to shut off services in your [...] living situation today? I have a [facility] place to live 10/19/2023 Sex and [...] Time COVID19 11/13/2023 11/13/2023 12/03/2023 5:55 AM CANOPY INSPECTOR documented as of this encounter Care Teams Cataloging Assistant Relationship Specialty Start Date End Date Osiris Otero APRN, C.N.P., R.N. [address] [place] [phone] PCP - General Family Medicine 09/17/23 12/08/23 documented as of this encounter
--- OUTSIDE RECORDS SUMMARY | 2024-01-30 12:51 | XMS_ITS | Encounter Summary ---
Author Name Unknown Organization [facility] Address [address] [place] [address] Care Team Providers Care Abrasive Worker Name Role Phone Shanna Elizabeth Murcia APRNNBuck, R.N. Primary Care Provider Reason for Referral * Speech Pathology (Routine) - Authorized Specialty Diagnoses / Procedures Referred By Contac t Referred To Contact Diagnoses Pneumonitis Due To Inhalation Of Food And Vomit (HCC) Procedures COPY EDITOR Dysphagia evaluate and treat Fernando [place] [address] [facility] Region Referral ID Status Reason Start Date Expiration Date V isits Requested Visits Authorized [id number] Authorized 11/07/2023 11/06/2024 1 1 HALMIC MEDICAL TECHNICIAN Encounter Details Date Type Department Care Team (Latest Contact Info) Description 11/07/2023 9:00 AM OPHTHALMIC MEDICAL TECHNICIAN External Outreach Senior Services in [place] [address] [place] [phone] Fernando Camarillo M.D. 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); Paraplegia (HCC); Pain Low Back Chronic; Other Adrenocortical Insufficiency (HCC); Osteoporosis; Obstructive Sleep Apnea Adult; Neurogenic Bladder; Hypertension Essential Primary; Diarrhea; Corticosteroid Treatment Systems Spec Systemic; Chronic Diastolic (Congestive) Heart Failure (HCC); [...] = 0.6 oz pur e alcohol) [facility] Utilities Answer Date Recorded In the past 12 months has [facility] [employer], gas, oil, or water [employer] threatened to shut off services in your [...] Comments Blood Pressure 118/84 11/07/2023 7:12 AM OPHTHALMIC MEDICAL TECHNICIAN Pulse 84 11/07/2023 7:12 AM OPHTHALMIC MEDICAL TECHNICIAN Temperature 36.9 ??C (98.5 ??F) 11/07/2023 7:12 AM CS T Respiratory Rate 18 11/07/2023 7:12 AM OPHTHALMIC MEDICAL TECHNICIAN Oxygen Saturation 95% 11/07/2023 7:12 AM OPHTHALMIC MEDICAL TECHNICIAN Inhaled Oxygen Concentration - - Weight 60.5 kg (133 lb 6.4 oz) 11/07/2023 7:12 A M OPHTHALMIC MEDICAL TECHNICIAN Height - - Body Mass Index 26.19 10/19/2023 5:00 AM OPHTHALMIC MEDICAL TECHNICIAN documented in this encounter Progress Notes * Fernando Camarillo M.D. - 11/07/2023 9:00 AM CST SUBJECTIVE CHIEF COMPLAINT / REASON FOR VISIT I am asked to see Prerna, for a Re-Admission visit. Visit Type: In Person Face-to- Face visit HISTORY OF PRESENT ILLNESS Prerna is a 77 y.o. female who currently resides at [facility] in [place], [place]. Obtained from Patient and SBAR: This 77-year-old female presented to our facility following treatment for perirectal abscess. Patient was hospitalized at [facility] from 08/28/2023 through 09/17/2023, she has [...] obstructive sleep apnea. [facility]. She was recently admitted to the [facility] after being seen in the emergency department in [place]. She had developed hypoxia and was felt [...] (HCC) 2. Chronic Diastolic (Congestive) Heart Failure ([facility]) 3. Unspecified Open Wound Right Buttock Initial 4. Pain Low Back Chronic 5. Other Adrenocortical Insufficiency ([facility]) 6. Osteoporosis 7. Neurogenic Bladder 8. Diarrhea 9. Arthritis Rheumatoid ([facility]) 10. Anemia 11. Hypertension Essential Primary 12. Corticosteroid Treatment Half-Way Systemic 13. Paraplegia ([facility]) 14. Voice And Resonance Disorder - Primary 15. 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 Obstructive Sleep Apnea Adult I reviewed [...] daily. #6 Diarrhea Resolved #7 Corticosteroid Treatment Systems Spec Systemic Prednisone 10 mg daily #8 Benign Neoplasm Colon I do not have any updated records on this from [place] #9 Atrial Fibrillation Unspecified (HCC) Rate controlled [...] and will follow-up with general surgery in [place]. [facility] #15 Recent aspiration pneumonia. Will have swallow study performed. She has an appointment scheduled with pulmonology next month. HALMIC MEDICAL TECHNICIAN documented in this encounter Miscellaneous Notes * Addendum Note - Fernando Camarillo M.D. 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 [address] [place] [address] PCP - General Family Medicine 09/17/23 12/08/23 documented as of this encounter
--- OUTSIDE RECORDS SUMMARY | 2024-01-30 12:51 | XMS_ITS | Clinical Summary ---
Author Name Unknown Organization [facility] Address [address] [place] [address] Care Team Providers Care Overlock Sleeve Setter Name Role Phone Elsewhere, Pcp Primary Care Provider Unavailabl e Source Comments Patient records contain information from all sites at [facility]. For routine questions regarding patient records, call [phone] during business hours, M-F 8:00 AM - 5:00 PM Central Time. Record requests for emergency care only can be directed to [phone] at any time.[facility] Allergies Active Allergy Reactions Criticality Noted Date [...] 09/19/2023 Hypertension Essential Primary 09/19/2023 Corticosteroid Treatment Fdc Systemic 05/2023 Paraplegia 09/19/2023 Osteoporosis 06/28/2021 Acute [...] Department of Physical Medicine and Rehabilitation in [place], [place] [address] [place] [phone] Charlotte Craig, [facility]-PROGRAM ARCHITECT 12/01/2023 Clinical Communication Department of Pulmonary Medicine in [place], [place] [address] [place] [phone] [facility] P[facility]. 11/28/2023 4:00 PM CUSTOMER FACILITIES SUPERVISOR External Outreach Senior Services in [address] [phone] Osiris Otero APRN, C.N.P., R.N. Chronic Diastolic [...] Disorder 11/28/2023 Clinical Communication Senior Services in [address] [phone] Haven Saxena, RRobertoN. 11/26/2023 Documentation Senior Services in [address] [phone] Osiris Otero APRN, C.N.P., R.N. 11/25/2023 Clinical Communication Senior Services in [address] [phone] Osiris Otero APRN, C.N.P., R.N. 11/10/2023 Orders Only Senior Services in [address] [phone] Osiris Otero APRN, C.N.P., R.N. Neurogenic Bladder (Primary Dx) 11/07/2023 9:00 AM CUSTOMER FACILITIES SUPERVISOR External Outreach Senior Services in [address] [phone] Fernando Renee M.D. 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 Hypokalemia Discharge Disposition: Home or Self Care 10/31/2023 10:00 AM CUSTOMER FACILITIES SUPERVISOR External Outreach Senior Services in [place] [address] [place] [address] Osiris Otero APRN, C.N.P., R.N. Orthopnea (Primary [...] Disorder; Obstructive Sleep Apnea Adult; Paraplegia (HCC) from Last 3 Months Immunizations Name Administration [...] drink = 0.6 oz pur e alcohol) [facility] Utilities Answer Date Recorded In the [...] your living situation today? I have a [facility] place to live 10/19/2023 Sex and Gender Information Value Date Recorded Sex Assigned at Not on file Gender Identity Not on file Sexual Orientation Not on file Last Filed Vital Signs Vital Sign Reading Time Taken Comments Blood Pressure 110/68 11/28/2023 8:43 AM CUSTOMER FACILITIES SUPERVISOR Pulse 76 11/28/2023 8:43 AM CUSTOMER FACILITIES SUPERVISOR Temperature 36.7 ??C (98 ??F) 11/28/2023 8:43 AM CUSTOMER FACILITIES SUPERVISOR Respiratory Rate 18 11/28/2023 8:43 AM CUSTOMER FACILITIES SUPERVISOR Oxygen Saturation 95% 11/28/2023 8:43 AM CUSTOMER FACILITIES SUPERVISOR RA Inhaled Oxygen Concentration - - Weight 58.8 kg (129 lb 9.6 oz) 11/28/2023 8:43 A M CUSTOMER FACILITIES SUPERVISOR Height 152 cm (4' 11.84) 10/19/2023 5:00 AM CUSTOMER FACILITIES SUPERVISOR Body Mass Index 25.44 10/19/2023 5:00 AM CUSTOMER FACILITIES SUPERVISOR Plan of Treatment Health Maintenance Due [...] METABOLIC PANEL, S/P Routine 11/04/2023 6:52 AM CUSTOMER FACILITIES SUPERVISOR Hypokalemia from Last 3 Months Results * (ABNORMAL) EXT Home SARS Coronavirus-2 (COVID-19) Antigen (11/13/2023) EXT Home SARS-CoV-2 Antigen Presumptive Positive(A) Presumptive Negative OTHER (SPECIFY IN PYROMETER OPERATOR) Swab 11/13/2023 Historical Provider LAB MICROBIOLOGY - G ENERAL ORDERABLES OTHER (SPECIFY IN PYROMETER OPERATOR) N/A * (ABNORMAL) Basic Metabolic Panel (11/04/2023 6:52 AM CUSTOMER FACILITIES SUPERVISOR) Potassium, P 4.1 3.6 - 5.2 mmol/L 11/04/2023 8:14 AM CUSTOMER FACILITIES SUPERVISOR NPRG Sodium, P 142 135 - 145 mmol/L 11/04/2023 8:14 AM CUSTOMER FACILITIES SUPERVISOR NPRG Chloride, P 102 98 - 107 mmol/L 11/04/2023 8:14 AM CUSTOMER FACILITIES SUPERVISOR NPRG Bicarbonate, P 30(H) 22 - 29 mmol/L 11/04/2023 8:14 AM CUSTOMER FACILITIES SUPERVISOR NPRG Anion Gap, P 10 7 - 15 11/04/2023 8:14 AM CUSTOMER FACILITIES SUPERVISOR NPRG BUN (Blood Urea Nitrogen), P 21 6 - 21 mg/dL 11/04/2023 8:14 AM CUSTOMER FACILITIES SUPERVISOR NPRG Creatinine 0.28(L) 0.59 - 1.04 mg/dL 11/04/2023 8:14 AM CUSTOMER FACILITIES SUPERVISOR NPRG Estimated GFR (eGFR) >90 >=60 mL/min/BSA 11/04/2023 8:14 AM CUSTOMER FACILITIES SUPERVISOR NPRG Comment: Estimated GFR calculated using the 2020 CKD_EPI creatinine equation. Calcium, Total, P 9.1 8.8 - 10.2 mg/dL 11/04/2023 8:14 AM CUSTOMER FACILITIES SUPERVISOR NPRG Glucose, P 79 70 - 140 mg/dL 11/04/2023 8:14 AM CUSTOMER FACILITIES SUPERVISOR NPRG Blood (Blood, Venous) 11/04/2023 6:52 AM CUSTOMER FACILITIES SUPERVISOR 11/04/2023 7:43 AM CUSTOMER FACILITIES SUPERVISOR Osiris Otero APRN, C.N.P., R.N. LAB B LOOD ADD-ON [facility] [address] [place] [address], [place] NPRG [facility] [address] [place] [address] from Last 3 Months Advance Directives For more information, please contact: [phone] Documents on File Type Date Recorded Patient Fiberglass Laminator Expl anation Advance Directives 09/19/2023 4:06 PM POLS T/MOLST * DNR/DNI (Latest Code Status on File) Date Activated Date Inactivated Comments 10/19/2023 6:50 PM 10/27/2023 4:16 PM * Full Code Date Activated Date Inactivated Comments 10/19/2023 2:13 AM 10/19/2023 6:50 PM Question Answer Comments Full Code: Discussed Care Teams Overlock Sleeve Setter Relationship Specialty Start Date End Date Elsewhere, Pcp PCP - General Internal Medicine 12/09/23
--- OUTSIDE RECORDS SUMMARY | 2024-01-30 12:51 | XMS_ITS | Encounter Summary ---
Author Name Unknown Organization [facility] Address [address] [place] [address] Care Team Providers Care Event Specialist Product Demonstrator Name Role Phone Shanna Osiris Doe APRN C.N.Tia., R.N. Primary Care Provider Encounter Details Date Type Department Care Team (Late st Contact Info) Description 11/28/2023 Clinical Communication Senior Services in [place] [address] [place] [phone] Haven Saxena, R.N. Social History Tobacco Use Types Packs/Day Years Used Date Smoking Tobacco: Never Smokeless Tobacco: Never Alcohol Use Standard Drinks/Week Comments Defer 0 (1 standard drink = 0.6 oz pur e alcohol) [facility] Utilities Answer Date Recorded In the past 12 months has [facility] [employer], gas, oil, or water [employer] threatened to shut off services in your [...] your living situation today? I have a [facility] place to live 10/19/2023 Sex [...] Time COVID19 11/13/2023 11/13/2023 12/03/2023 5:55 AM CATHETER FINISHER AND INSPECTOR documented as of this encounter Care Teams Event Specialist Product Demonstrator Relationship Specialty Start Date End Date Osiris Otero APRN, C.N.P., R.N. [address] [place] [address] PCP - General Family Medicine 09/17/23 12/08/23 documented as of this encounter
--- OUTSIDE RECORDS SUMMARY | 2024-01-30 12:52 | XMS_ITS | Encounter Summary ---
Author Name Unknown Organization [facility] Address [address] [place] [address] Care Team Providers Care Toaster Element Repairer Name Role Phone Elsewhere, Pcp Primary Care Provider Unavailabl e Encounter Details Date Type Department Care Team (Latest Contact Info) Description 10/18/2023 Intake [facility] Social History Tobacco Use Types Packs/Day Years Used Date Smoking Tobacco: Never Smokeless Tobacco: Never Alcohol Use Standard Drinks/Week Comments Defer 0 (1 standard drink = 0.6 oz pur e alcohol) [facility] Utilities Answer Date Recorded In the past 12 months has e [employer], gas, oil, or water [email or web address] threatened to shut off services in your [...] your living situation today? I have a [facility] place to live 10/19/2023 Sex and [...] Pending 10/18/2023 10/18/2023 10/18/2023 9 :11 PM SHIPPING TEAM LEADER COVID19 11/13/2023 11/13/2023 12/03/2023 5:55 AM SHIPPING TEAM LEADER documented as of this encounter Care Teams Toaster Element Repairer Relationship Specialty Start Date End Date Elsewhere, Pcp PCP - General Internal Medicine 12/09/23 documented as of this encounter
--- OUTSIDE RECORDS SUMMARY | 2024-01-30 12:52 | XMS_ITS | Encounter Summary ---
Author Name Unknown Organization [facility] Address [address] [place] [address] Care Team Providers Care Pilot Boat Captain Name Role Phone ShannaFransisca lopezOsirisMars Islsa APRN.NJuan., R.N. Primary Care Provider Reason for Visit * Auth/Cert (Routine) Specialty Diagnoses / Procedures Referred By Contac t Referred To Contact Diagnoses Pneumonia pnuemoinia Procedures IP Referral ID Status Reason Start Date Expiration Date Visits Re quested Visits Authorized [id number] 1 1 Encounter Details Date Type Department Care Team (Latest Contact Info) Description 10/19/2023 2:09 AM YARDAGE CONTROL OPERATOR - 10/27/2023 2:06 PM YARDAGE CONTROL OPERATOR Hospital Encounter [facility], Second Floor [address] [place] [id number] Pancho Burr M.D. [address] [place] [phone] Williams Barber M.D. [address] [place] [address] Nicole Kaiser M.D. [facility] [place] [address] Camden Munoz M.D. [address] [place] [address] Infection Urinary Catheter Indwelling Initial [...] In the past 12 months has e [place], gas, oil, or water [employer] threatened to shut off services in your [...] Comments Blood Pressure 142/70 10/27/2023 6:52 AM YARDAGE CONTROL OPERATOR Pulse 86 10/27/2023 6:52 AM YARDAGE CONTROL OPERATOR Temperature 36.3 ??C (97.3 ??F) 10/27/2023 6:52 AM CS T Respiratory Rate 16 10/27/2023 6:52 AM YARDAGE CONTROL OPERATOR Oxygen Saturation 98% 10/27/2023 6:52 AM YARDAGE CONTROL OPERATOR Inhaled Oxygen Concentration - - Weight 61 kg (134 lb 7.7 oz) 10/27/2023 5:22 AM YARDAGE CONTROL OPERATOR Height 152 cm (4' 11.84) 10/19/2023 5:00 AM YARDAGE CONTROL OPERATOR Body Mass Index 26.4 10/19/2023 5:00 AM YARDAGE CONTROL OPERATOR documented in this encounter Discharge Summaries * Camden Munoz M.D. - 10/27/2023 11:50 AM CST DATE OF ADMISSION: 10/19/2023 DATE OF DISCHARGE: 10/22/2023 ADMITTING PHYSICIAN: Pancho Burr M.D. DISCHARGING PHYSICIAN: Camden Munoz M.D. PRIMARY CARE PHYSICIAN: Osiris Otero APRN, C.N.P., R.N. [address] [facility] [address] PRINCIPAL DIAGNOSIS: Acute Respiratory Failure With Hypoxia (HCC) SECONDARY DIAGNOSES: #1 Chronic Diastolic (Congestive) Heart Failure (HCC) #2 Unspecified Open Wound Right Buttock Initial #3 Other Adrenocortical Insufficiency (HCC) #4 Neurogenic Bladder #5 Arthritis Rheumatoid (HCC) #6 Hypertension Essential Primary #7 Corticosteroid Treatment Half-Way Systemic #8 Paraplegia (HCC) #9 Acute Respiratory Failure With Hypoxia (HCC) #10 Abnormal Urinalysis #11 Fever Of Unknown Origin #12 Pneumonitis Due To Inhalation Of Food And Vomit (HCC) #13 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 ([facility]) #14 Obstructive Sleep Apnea Adult #15 [...] debridement of a perirectal abscess at the [facility] then discharged to a jail in [place]. She reported that she spent about a month there and then developed a respiratory infection which was treated with 5 days of levofloxacin. The patient presented to the emergency room shortly after completing her levofloxacin course, on 10/18/23, with fevers, cough, shortness breath and hypoxia. With no room locally for the patient she was transferred to [place] for acute management. At our facility the [...] At the recommendations of our Infectious Disease field technical support consultant, the patient was converted to oral [...] treatment orders at the patient's SNF in [place] were adequate. No changes other than the [...] to discharge the patient back to her detention facility on 10/23/23. Unfortunately, though her detention facility received regular updates on the plan [...] spent on counseling and coordination of care. AGE CONTROL OPERATOR documented in this encounter Discharge Instructions * Attachments The following attachments cannot be sent through Care Everywhere. * Pressure Relief Maneuvers (Dutch) * Chronic Pain Cycles (Dutch) documented in this encounter Medications at Time [...] times a day before meals. 09/17/2023 11/07/2023 metoprolol tartrate (LOPRESSOR) 50 mg tablet Take 50 mg by mouth daily. 09/18/2023 10/31/2023 nystatin (NYSTOP) 100,000 unit/gram powder Apply 1 Application topically 2 (two) times a day. Apply to abd folds and groin area 09/18/2023 11/07/2023 oxyCODONE (ROXICODONE) 5 mg immediate release tabletIndications:Chr onic Pain/Nonacute Pain Indication: Chronic Pain/Nonacute Pain. 5 mg four times daily as needed (at least 4 hours apart) 42 tablet 10/27/2023 10/31/2023 potassium chloride (KLOR-CON M/KDUR) 20 mEq ER tablet Take 1 tablet (20 mEq total) by mouth 3 (three) times a day with meals. 10/14/2023 11/28/2023 documented as of this encounter Progress Notes * Mallika Peña L.I.C.S.W. - 10/27/2023 11:52 AM CST Images from the original note were not included. SUBJECTIVE Social work following for discharge plans. Spoke with patient via [employer] during bedside team rounding. Social work received insurance authorization for patient to return to [facility]. Patient shares that her niece will be [...] (HCC) Anemia Hypertension Essential Primary Corticosteroid Treatment Half-Way Systemic Paraplegia (HCC) Voice And Resonance Disorder [...] formally assessed INTERVENTIONS Received insurance auth through [employer] Coordinated patient's return with [facility] Destination - Admitted Since 10/19/2023 Service Provider Request Status Selected Services Address Phone Fax Patient Preferred [facility] ACO Selected [facility] [address] [place] [address] [phone] -- PLAN Patient will return to [facility] today at 1pm. Niece will transport Amadou Blackmon 10/27/23 AGE CONTROL OPERATOR * Nicole Kaiser M.D. 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 This patient spent about 3 months in the [facility] for management and de bridement of a perirectal abscess, then discharge to a jail in [place] where she spent about a month before developing a respiratory infection treated with 5 days of levofloxacin. The patient presented to the emergency room shortly after completing her course, on 10/18/23, with fevers, cough, shortness breath and hypoxia. With no room locally for the patient [place] [facility] [place] #1 Fever Of Unknown Origin #2 Acute Respiratory Failure With Hypoxia ([facility]) #3 Aspiration Pneumonia, Abnormal Urinalysis, Neurogenic [...] Monitor for evidence of on-going aspiration. -recommend FORTUNE TELLER evaluation again upon return to her detention facility -- DuoNebs makes her jittery, so switched to Atrovent nebs. (reduced to 3 times daily secondary to PSVT) -- Appropriate cough management -- Fall/Aspiration precautions #4 Chronic Diastolic (Congestive) Heart Failure (HCC) #5 Atrial Fibrillation Unspecified ([facility]) #6 Hypertension Essential Primary, Severe HUI -- Continue bedtime BiPAP therapy -- Per patient, considered resolved by [facility] PCP. Hence, no anticoagulation. Apparently, the metoprolol [...] as appropriate. -- Follow-up as recommended by [facility] providers. -noted that we do not have the calcium alginate that was being used to pack the patient's wound while she was at the [facility]. Will use Aquacel in its place. We do not have Vashe either, so using normal saline in its place for now #12 Other Adrenocortical Insufficiency (HCC) #13 Arthritis Rheumatoid (HCC) #14 Corticosteroid Treatment Screen Handler Systemic -- Continue prednisone taper back down to chronic prednisone 10 mg daily - for stress steroids dosing given suspected pneumonia. Current dose is 40mg daily. Will be back on chronic 10mg dose on 10/28. -- Continue management of chronic medical issues. Diet: 2000 mg sodium cardiovascular diet Prophylaxis: SCDs only Code Status: DNR/DNI Dispo: Planning on 10/25 D/C back to [facility] once final insurance authorization is received. Patient reports her niece can transport her, she has a wheelchair van. Electronically signed by: Nicole Kaiser M.D. 10/26/23 10:38 AM YARDAGE CONTROL OPERATOR AGE CONTROL OPERATOR * Nicole Kaiser M.D. - 10/25/2023 9:26 [...] PLAN #1 Chronic Diastolic (Congestive) Heart Failure ([facility]) #2 Unspecified Open Wound Right Buttock Initial #3 Other Adrenocortical Insufficiency ([facility]) #4 Neurogenic Bladder #5 Arthritis Rheumatoid ([facility]) #6 Hypertension Essential Primary #7 Corticosteroid Treatment Screen Handler Systemic #8 Paraplegia ([facility]) #9 Acute Respiratory Failure With Hypoxia ([facility]) #10 Abnormal Urinalysis #11 Fever Of Unknown Origin #12 Pneumonitis Due To Inhalation Of Food And Vomit ([facility]) #13 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 ([facility]) #14 Obstructive Sleep Apnea Adult #15 Infection Urinary Catheter Indwelling Initial ([facility]) #16 Do Not Resuscitate Status #17 Pneumonia 77-year-old 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 This patient spent about 3 months in the [facility] for management and de bridement of a perirectal abscess, then discharge to a jail in [place] where she spent about a month before developing a respiratory infection treated with 5 days of levofloxacin. The patient presented to the emergency room shortly after completing her course, on 10/18/23, with fevers, cough, shortness breath and hypoxia. With no room locally for the patient [place] [facility] [place]. #1 Fever Of Unknown Origin [...] Monitor for evidence of on-going aspiration. -recommend FORTUNE TELLER evaluation again upon return to her detention facility -- DuoNebs makes her jittery, so switched to Atrovent nebs. (reduced to 3 times daily secondary to PSVT) -- Appropriate cough management -- Fall/Aspiration precautions #4 Chronic Diastolic (Congestive) Heart Failure ([facility]) #5 Atrial Fibrillation Unspecified ([facility]) #6 Hypertension Essential Primary, Severe HUI -- Continue bedtime BiPAP therapy -- Per patient, considered resolved by [facility] PCP. Hence, no anticoagulation. Apparently, the metoprolol [...] Sacral Region Stage 2 (HCC) #11 Paraplegia ([facility]) -- Continue recommended wound cares (including Wound Vac therapy) for the two Right buttock wounds,Left-sacral pressure ulcer, and Left heel stage 1 pressure ulcer. -- Q2H repositioning to offload areas at risk for pressure ulcers as appropriate. -- Appreciate assistance of PT wound staff. -- Monitor wounds and record photos in the chart as appropriate. -- Follow-up as recommended by [facility] providers. -noted that we do not have the calcium alginate that was being used to pack the patient's wound while she was at the [facility]. Will use Aquacel in its place. We do not have Vashe either, so using normal saline in its place for now #12 Other Adrenocortical Insufficiency (HCC) #13 Arthritis Rheumatoid (HCC) #14 Corticosteroid Treatment Screen Handler Systemic -- Continue prednisone taper back down to chronic prednisone 10 mg daily - for stress steroids dosing given suspected pneumonia. Current dose is 40mg daily. Will be back on chronic 10mg dose on 10/28. -- Continue management of chronic medical issues. Diet: 2000 mg sodium cardiovascular diet Prophylaxis: SCDs only Code Status: DNR/DNI Dispo: 10/25 D/C back to [facility] Villaseñor in [place]. Patient reports her niece can transport her, she has a wheelchair van. Electronically signed by: Nicole Kaiser M.D. 10/25/23 9:26 AM YARDAGE CONTROL OPERATOR AGE CONTROL OPERATOR * Nicole Kaiser M.D. - 10/24/2023 10:43 [...] PLAN #1 Chronic Diastolic (Congestive) Heart Failure ([facility]) #2 Unspecified Open Wound Right Buttock Initial #3 Other Adrenocortical Insufficiency ([facility]) #4 Neurogenic Bladder #5 Arthritis Rheumatoid ([facility]) #6 Hypertension Essential Primary #7 Corticosteroid Treatment Screen Handler Systemic #8 Paraplegia ([facility]) #9 Acute Respiratory Failure With Hypoxia ([facility]) #10 Abnormal Urinalysis #11 Fever Of Unknown Origin #12 Pneumonitis Due To Inhalation Of Food And Vomit ([facility]) #13 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 ([facility]) #14 Obstructive Sleep Apnea Adult #15 Infection Urinary Catheter Indwelling Initial ([facility]) #16 Do Not Resuscitate Status #17 Pneumonia 77-year-old 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 This patient spent about 3 months in the [facility] for management and de bridement of a perirectal abscess, then discharge to a jail in [place] where she spent about a month before developing a respiratory infection treated with 5 days of levofloxacin. The patient presented to the emergency room shortly after completing her course, on 10/18/23, with fevers, cough, shortness breath and hypoxia. With no room locally for the patient she was [place] [facility] [place]. #1 Fever Of Unknown Origin #2 Acute Respiratory Failure With Hypoxia ([facility]) #3 Aspiration Pneumonia, Abnormal Urinalysis, Neurogenic [...] Monitor for evidence of on-going aspiration. -recommend FORTUNE TELLER evaluation again upon return to her detention facility -- DuoNebs makes her jittery, so switched to Atrovent nebs. (reduced to 3 times daily secondary to PSVT) -- Appropriate cough management -- Fall/Aspiration precautions #4 Chronic Diastolic (Congestive) Heart Failure (HCC) #5 Atrial Fibrillation Unspecified (HCC) #6 Hypertension Essential Primary, Severe HUI -- Continue bedtime BiPAP therapy -- Per patient, considered resolved by [facility] PCP. Hence, no anticoagulation. Apparently, the metoprolol [...] as appropriate. -- Follow-up as recommended by [facility] providers. -noted that we do not have the calcium alginate that was being used to pack the patient's wound while she was at the SNF. Will use Aquacel in its place. We do not have Vashe either, so using normal saline in its place for now #12 Other Adrenocortical Insufficiency (HCC) #13 Arthritis Rheumatoid (HCC) #14 Corticosteroid Treatment Half-Way Systemic -- Continue prednisone taper back down to chronic prednisone 10 mg daily - for stress steroids dosing given suspected pneumonia. Current dose is 40mg daily. Will be back on chronic 10mg dose on 10/28. -- Continue management of chronic medical issues. Diet: 2000 mg sodium cardiovascular diet Prophylaxis: SCDs only Code Status: DNR/DNI Dispo: Awaiting insurance approval for D/C back to [facility] in [place]. Patient reports her niece can transport her, she has a wheelchair van. However she lives about 1[place]1/2 hours away from here. Electronically signed by: Nicole Kaiser M.D. 10/24/23 10:57 AM YARDAGE CONTROL OPERATOR AGE CONTROL OPERATOR * Mallika Peña L.I.CRobertoS.W. - 10/23/2023 4:28 PM CST SUBJECTIVE Social work following for discharge plans. Patient had been set to discharge back to [facility] today but was updated that she still [...] (HCC) Anemia Hypertension Essential Primary Corticosteroid Treatment Half-Way Systemic Paraplegia (HCC) Voice And Resonance Disorder [...] not assessed PLAN Patient will return to [facility] pending insurance authorization Amadou Blackmon 10/23/23 AGE CONTROL OPERATOR * Williams Barber M.D. 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 This patient spent about 3 months in the [facility] for management and de bridement of a perirectal abscess, then discharge to a jail in [place] where she spent about a month before developing a respiratory infection treated with 5 days of levofloxacin. The patient presented to the emergency room shortly after completing her course, on 10/18/23, with fevers, cough, shortness breath and hypoxia. With no room locally for the patient [place] [facility] [place]. Interval History: Today the patient [...] Given, 40 mg at 10/22 616 pediatric psvleacfxfzw-jhwq-rhbifatk chewable tablet 1 tablet ([facility]) 1 [...] PLAN #1 Chronic Diastolic (Congestive) Heart Failure ([facility]) #2 Unspecified Open Wound Right Buttock Initial #3 Other Adrenocortical Insufficiency ([facility]) #4 Neurogenic Bladder #5 Arthritis Rheumatoid ([facility]) #6 Hypertension Essential Primary #7 Corticosteroid Treatment Screen Handler Systemic #8 Paraplegia ([facility]) #9 Acute Respiratory Failure With Hypoxia ([facility]) #10 Abnormal Urinalysis #11 Fever Of Unknown Origin #12 Pneumonitis Due To Inhalation Of Food And Vomit ([facility]) #13 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 ([facility]) #14 Obstructive Sleep Apnea Adult #15 Infection Urinary Catheter Indwelling Initial ([facility]) #16 Do Not Resuscitate Status #17 Pneumonia #1 Fever Of Unknown Origin #2 Acute Respiratory Failure With Hypoxia ([facility]) #3 Aspiration Pneumonia, Abnormal Urinalysis, Neurogenic [...] Monitor for evidence of on-going aspiration. -recommend FORTUNE TELLER evaluation again upon return to her detention facility -- DuoNebs makes her jittery, so [...] therapy -- Per patient, considered resolved by [facility] PCP. Hence, no anticoagulation. Apparently, the metoprolol succinate is for hypertension. Review requested medical records from [facility] to confirm - when available. -- [...] as appropriate. -- Follow-up as recommended by [facility] providers. -noted that we do not have [...] #13 Arthritis Rheumatoid (HCC) #14 Corticosteroid Treatment Half-Way Systemic -- Use prednisone taper back down [...] planning a discharge back to the patient's detention facility with a tentative date of , 10/23/23. Appreciate our social media intern coordinating with the detention facility. Unfortunately today our social media intern reports that the detention facility neglected to submit paperwork and obtain approval from the patient's insurance to be readmitted today. Her detention facility declines to take the patient back if they do not have approval from insurance. This unfortunately looks like it is going to delay the patient's discharge from our facility until tomorrow. AGE CONTROL OPERATOR * Elvi Anderson, Jacklyn., R.Ph. - 10/23/2023 [...] anticipated at discharge:TBD Elvi Anderson Pharm.D., R.Ph. AGE CONTROL OPERATOR * Cristino Pool, P.T. - 10/22/2023 10:42 AM CST Assessed patient's wounds with hospitalist and nursing staff. Current plan outlined by hospitalist is appropriate and will be carried out by nursing staff. No further need for physical therapy at this time. AGE CONTROL OPERATOR * Williams Barber M.D. 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 This patient spent about 3 months in the [facility] for management and de bridement of a perirectal abscess, then discharge to a jail in [place] where she spent about a month before developing a respiratory infection treated with 5 days of levofloxacin. The patient presented to the emergency room shortly after completing her course, on 10/18/23, with fevers, cough, shortness breath and hypoxia. With no room locally for the patient [place] [facility] [place]. Interval History: today the patient [...] Given, 40 mg at 10/22 616 pediatric qznshbmbsdaj-rbod-rofjptmc chewable tablet 1 tablet ([facility]) 1 [...] #6 Hypertension Essential Primary #7 Corticosteroid Treatment Half-Way Systemic #8 Paraplegia (HCC) #9 Acute Respiratory Failure With Hypoxia (HCC) #10 Abnormal Urinalysis #11 Fever Of Unknown Origin #12 Pneumonitis Due To Inhalation Of Food And Vomit (HCC) #13 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 ([facility]) #14 Obstructive Sleep Apnea Adult #15 Infection Urinary Catheter Indwelling Initial ([facility]) #16 Do Not Resuscitate Status #17 Pneumonia #1 Fever Of Unknown Origin #2 Acute Respiratory Failure With Hypoxia ([facility]) #3 Aspiration Pneumonia, Abnormal Urinalysis, Neurogenic [...] Monitor for evidence of on-going aspiration. Appreciate FORTUNE TELLER assistance with swallow studies -- Fahad makes her jittery, so switched to Atrovent nebs. (reduced to 3 times daily secondary to PSVT) -- Consider sputum testing. -- Appropriate cough management -- Fall/Aspiration precautions -- Appreciate the assistance of our rehab staff. #4 Chronic Diastolic (Congestive) Heart Failure (HCC) #5 Atrial Fibrillation Unspecified ([facility]) #6 Hypertension Essential Primary, Severe HUI -- Continue bedtime BiPAP therapy -- Per patient, considered resolved by [facility] PCP. Hence, no anticoagulation. Apparently, the metoprolol succinate is for hypertension. Review requested medical records from [facility] to confirm - when available. -- [...] as appropriate. -- Follow-up as recommended by [facility] providers. -noted that we do not have [...] Other Adrenocortical Insufficiency (HCC) #13 Arthritis Rheumatoid ([facility]) #14 Corticosteroid Treatment Screen Handler Systemic -- Use prednisone taper back down to chronic prednisone 10 mg daily - for stress steroids dosing given suspected pneumonia. Current dose is 40mg daily. Will be back on chronic 10mg dose on 10/28. -- Continue management of chronic medical issues. Diet: 2000 mg sodium cardiovascular diet Prophylaxis: SCDs only Code Status: DNR/DNI Dispo: Plan to discharge back to her detention facility most likely morning AGE CONTROL OPERATOR * Williams Barber M.D. 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 This patient spent about 3 months in the [facility] for management and de bridement of a perirectal abscess, then discharge to a jail in [place] where she spent about a month before developing a respiratory infection treated with 5 days of levofloxacin. The patient presented to the emergency room shortly after completing her course, on 10/18/23, with fevers, cough, shortness breath and hypoxia. With [place] locally [place]. [place]: Overnight the patient [...] Given, 40 mg at 10/21 626 pediatric yoengbgmueiy-lgnq-hiegnzwl chewable tablet 1 tablet ([facility] COMPLETE) 1 [...] PLAN #1 Chronic Diastolic (Congestive) Heart Failure ([facility]) #2 Unspecified Open Wound Right Buttock Initial #3 Other Adrenocortical Insufficiency ([facility]) #4 Neurogenic Bladder #5 Arthritis Rheumatoid ([facility]) #6 Hypertension Essential Primary #7 Corticosteroid Treatment Half-Way Systemic #8 Paraplegia ([facility]) #9 Acute Respiratory Failure With Hypoxia ([facility]) #10 Abnormal Urinalysis #11 Fever Of Unknown Origin #12 Pneumonitis Due To Inhalation Of Food And Vomit ([facility]) #13 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 ([facility]) #14 Obstructive Sleep Apnea Adult #15 Infection Urinary Catheter Indwelling Initial ([facility]) #16 Do Not Resuscitate Status #17 Pneumonia #1 Fever Of Unknown Origin #2 Acute Respiratory Failure With Hypoxia ([facility]) #3 Aspiration Pneumonia, Abnormal Urinalysis, Neurogenic [...] Monitor for evidence of on-going aspiration. Appreciate FORTUNE TELLER assistance with swallow studies -- Fahad makes [...] therapy -- Per patient, considered resolved by [facility] PCP. Hence, no anticoagulation. Apparently, the metoprolol succinate is for hypertension. Review requested medical records from [facility] to confirm - when available. -- [...] as appropriate. -- Follow-up as recommended by [facility] providers. -noted that we do not have the calcium alginate that was being used to pack the patient's wound while she was at the SNF. Will use Aquacel in its place. 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 Current dose is 40mg daily. Will be back on chronic 10mg dose on 10/28. -- Continue management of chronic medical issues. Diet: 2000 mg sodium cardiovascular diet Prophylaxis: SCDs only Code Status: DNR/DNI Dispo: Plan to discharge back to her detention facility most likely morning AGE CONTROL OPERATOR * Williams Barber M.D. 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 This patient spent about 3 months in the [facility] for management and de bridement of a perirectal abscess, then discharge to a jail in [place] where she spent about a month before developing a respiratory infection treated with 5 days of levofloxacin. The patient presented to the emergency room shortly after completing her course, on 10/18/23, with fevers, cough, shortness breath and hypoxia. With no room locally [place]. [place]val History: This patient with [...] mg, oral, Daily Given, 1,000 mg at 10/20 0810 benzonatate capsule 100 mg (TESSALON PERLES) [...] Given, 40 mg at 10/20 603 pediatric klzhiloduxbj-eoyh-zbsbczti chewable tablet 1 tablet ([facility] COMPLETE) 1 [...] #6 Hypertension Essential Primary #7 Corticosteroid Treatment Screen Handler Systemic #8 Paraplegia (HCC) #9 Acute Respiratory [...] Monitor for evidence of on-going aspiration. Appreciate FORTUNE TELLER assistance with swallow studies -- Fahad makes her jittery, so switched to Atrovent nebs. -- Consider sputum testing. -- Appropriate cough management -- Fall/Aspiration precautions -- Appreciate the assistance of our rehab staff. #4 Chronic Diastolic (Congestive) Heart Failure (HCC) #5 Atrial Fibrillation Unspecified (HCC) #6 Hypertension Essential Primary, Severe HUI -- Continue bedtime BiPAP therapy -- Per patient, considered resolved by [facility] PCP. Hence, no anticoagulation. Apparently, the metoprolol succinate is for hypertension. Review requested medical records from [facility] to confirm - when available. -- [...] as appropriate. -- Follow-up as recommended by [facility] providers. -noted that we do not have the calcium alginate that was being used to back the patient's wound. Will use Aquacel in its place. 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 - 10/20/2023 9:26 AM CST Pharmacist [...] anticipated at discharge:TBD Elvi Anderson Pharm.D., R.Ph. AGE CONTROL OPERATOR documented in this encounter H&P Notes * Pancho Burr M.D. - 10/19/2023 7:24 AM CST SUBJECTIVE CHIEF COMPLAINT Patient is a 77 y.o. female who presents with fevers, cough, and shortness of breath and diagnosed with pneumonia. 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 Of note, a couple of days prior to this presentation completed5 day course of levofloxacin for cough and possible pneumonia. On 10/18/2023, she presented to the [facility] with fevers, cough, shortness of breath,hypoxia [...] bed availability, she was transferred to the [facility] for further management. On the floor, she passed bedside swallow evaluation - and diet was advanced from NPO to regular diet - with aspiration precautions. FORTUNE TELLER referral was also made. Cefepime was switched to ceftriaxone and doxycycline was continued. MRSA nasal swab PCR returned positive. Since she feels improved withoutMRSA coverage, Infectious disease eConsult requested. Per patient, Afib was considered resolved by [facility] PCP. Hence, no anticoagulation. Apparently, the metoprolol succinate is for hypertension.Review requested medical records from [facility] to confirm - when available. 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) Chronic Diastolic (Congestive) Heart Failure (HCC) Abscess Perirectal Pain Low Back Chronic Other Adrenocortical Insufficiency (HCC) Other Acidosis Osteoporosis Neurogenic Bladder Edema Localized Diarrhea Benign Neoplasm Colon Atrial Fibrillation Unspecified (HCC) Arthritis Rheumatoid (HCC) Anemia Hypertension Essential Primary Corticosteroid Treatment Screen Handler Systemic Paraplegia (HCC) Voice And Resonance Disorder [...] Noted about 2 Right buttock wounds (the Jrdqw-tiii-bqvkvt wound is wet-drypacked and the mid-Right buttock [...] QI(U) Negative Bilirubin Negative pH 5.0 Specific [place] 1.015 Urobilinogen 0.2 White Blood Cells >100 [...] Monitor for evidence of on-going aspiration. Appreciate FORTUNE TELLER assistance with swallow studies -- Fahad makes her jittery, so switched to atrovent nebs. -- Consider sputum testing. -- Appropriate cough management -- Fall/Aspiration precautions -- Appreciate the assistance of our rehab staff. #4 Chronic Diastolic (Congestive) Heart Failure (HCC) #5 Atrial Fibrillation Unspecified (HCC) #6 Hypertension Essential Primary, Severe HUI -- Continue bedtime BiPAP therapy -- Per patient, considered resolved by [facility] PCP. Hence, no anticoagulation. Apparently, the metoprolol succinate is for hypertension. Review requested medical records from [facility] to confirm - when available. -- [...] as appropriate. -- Follow-up as recommended by [facility] providers. 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 AGE CONTROL OPERATOR documented in this encounter Consult Notes * Denia Mckinnon RDN, LD - 10/21/2023 9:42 AM CST Clinical Note Types: Initial Assessment/Consult NUTRITION VISIT REASON: wound healing NUTRITION ASSESSMENT Admitting Diagnosis: pneumonia Past Medical History: paraplegia from transverse myelitis, heart failure, Social History: alessandra villaseñor Food and Nutrition Related History Previous Diet: [...] Nutrition Monitoring/Evaluation Monitoring: Meals/Supplement Intake, Wound Healing AGE CONTROL OPERATOR * Mallika Peña L.I.C.S.W. - 10/20/2023 2:03 PM CST SUBJECTIVE Social work consulted for discharge planning. Social work met with patient via [employer] during bedside team rounding and followed up after via phone. Patient has been in short-term rehab at [facility] in [place] for wound cares. Prior to that, she was living at home with her daughter and had home health care services through [facility]. Patient anticipates returning to [facility] upon discharge. Social work reviewed transportation options [...] (HCC) Anemia Hypertension Essential Primary Corticosteroid Treatment Screen Handler Systemic Paraplegia (HCC) Voice And Resonance Disorder Acute Respiratory Failure With Hypoxia ([facility]) Abnormal Urinalysis Fever Of Unknown Origin Pneumonitis Due To Inhalation Of Food And Vomit (HCC) 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 ([facility]) Obstructive Sleep Apnea Adult Infection Urinary Catheter Indwelling Initial ([facility]) Do Not Resuscitate Status Pneumonia ASSESSMENT [...] hold PLAN Anticipate patient will return to [facility] on 10/23/23 Amadou Blackmon 10/20/23 AGE CONTROL OPERATOR * Bruno Crow M.D., Ph.D. - 10/20/2023 [...] #6 Hypertension Essential Primary #7 Corticosteroid Treatment Half-Way Systemic #8 Paraplegia (HCC) #9 Acute Respiratory Failure With Hypoxia (HCC) #10 Abnormal Urinalysis #11 Fever Of Unknown Origin #12 Pneumonitis Due To Inhalation Of Food And Vomit ([facility]) #13 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 ([facility]) #14 Obstructive Sleep Apnea Adult #15 Infection Urinary Catheter Indwelling Initial ([facility]) #16 Do Not Resuscitate Status #17 [...] will sign off Bruno Crow M.D., Ph.D. AGE CONTROL OPERATOR documented in this encounter Nursing Notes * [...] Niece All belongings sent home with patient. AGE CONTROL OPERATOR * Catarina Downs R.N. - 10/27/2023 4:03 [...] discharge back to [facility] today pending insurance approval. AGE CONTROL OPERATOR * Romina Corcoran R.N. - 10/26/2023 3:50 [...] met at this time, nursing care continues. AGE CONTROL OPERATOR * Zoie Butler R.N. - 10/26/2023 4:19 [...] patent. Pain controlled with oxycodone. Vitals stable. AGE CONTROL OPERATOR * Romina Corcoran R.N. - 10/25/2023 6:08 [...] met at this time, nursing care continues. AGE CONTROL OPERATOR * Catarina Downs R.N. - 10/25/2023 6:00 [...] Patient plans to discharge back to SNF pending insurance approval. AGE CONTROL OPERATOR * Romina Corcoran R.N. - 10/24/2023 5:00 PM CST Shift Goals: Identify possible barriers to meeting goals/advancing plan of care: wound care End of Shift Summary: pt A&Ox3, vitally stable. Pt c/o 7/10 pain in her wound and down her leg,managed with oxycodone. No falls or injuries. Call light appropriate. All needs met at this time, nursing care continues. AGE CONTROL OPERATOR * Catarina Downs R.N. - 10/24/2023 6:35 [...] Patient plans to discharge pending transportation approval. AGE CONTROL OPERATOR * Catarina Downs R.N. - 10/24/2023 5:16 AM CST 10/24/23 0100 10/24/23 0300 Vital Signs SpO2 94 % 95 % Nocturnal O2 study completed. No additional oxygen needs while wearing BiPAP. AGE CONTROL OPERATOR * Margaret Ling R.N. - 10/23/2023 11:36 [...] completed for 5 min. No oxygen needed. AGE CONTROL OPERATOR * Harriet Fitzpatrick R.N. - 10/23/2023 5:10 AM CST Problem: PAIN [...] met at this time, nursing cares continued. AGE CONTROL OPERATOR * Harriet Fitzpatrick R.N. - 10/23/2023 4:20 AM CST 10/23/23 0410 Oxygen Therapy SpO2 96 % Pulse Oximetry Type Continuous $Delivery Method CPAP Flow Rate (L/min) 0 L/min Nocturnal Oxygen Assessment (NSG) Asleep Room Air SpO2 96 Percent (Pt wearing CPAP no O2 bleed) Patient is wearing CPAP with no O2 bleed. Patient was monitored for at least 2 hours. AGE CONTROL OPERATOR * Ba Marsh R.N. - 10/22/2023 4:45 [...] Continuous oxygen and cardiac monitoring in place. AGE CONTROL OPERATOR * Ana Agosto R.N. - 10/22/2023 3:25 PM CST 01/10/24 1500 Home Oxygen Assessment Rest/Awake Room Air SpO2 87 Percent Rest/Awake with Oxygen SpO2 92 (1L NC) Exercise/Activity Room Air SpO2 (Patient unable to walk) Exercise/Activity with Oxygen SpO2 (Patient unable to walk) Patient monitored continuously for at least 5 minutes AGE CONTROL OPERATOR * Vivi Foote R.N. - 10/22/2023 4:18 [...] dose of prn oxycodone at bedtime. VSS AGE CONTROL OPERATOR * Anais Gibbs R.N. - 10/21/2023 3:53 PM CST Shift Goals: [...] and optimal respiratory function Anais Gibbs R.N. AGE CONTROL OPERATOR * Vivi Foote R.N. - 10/21/2023 4:50 [...] was started at 0.5 and increased to 2L/suha maintain her oxygen level. Lungs sounds are diminished with fine crackles and no cough present this shift. AGE CONTROL OPERATOR * Adelso Schneider R.N. - 10/20/2023 5:39 [...] Planned discharge on Friday or back to [facility]. AGE CONTROL OPERATOR * Ba Marsh R.N. - 10/19/2023 6:52 [...] met at this time, nursing cares continue. AGE CONTROL OPERATOR documented in this encounter Miscellaneous Notes * Hospital Course - Nicole Kaiser M.D. 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 This patient underwent debridement of a perirectal abscess at the [facility] then discharged to a jail in [place]. She reported that she spent about a month there and then developed a respiratory infection which was treated with 5 days of levofloxacin. The patient presented to the emergency room shortly after completing her levofloxacin course, on 10/18/23, with fevers, cough, shortness breath and hypoxia. With no room locally for the patient she was transferred to [place] for acute management. At our facility the [...] At the recommendations of our Infectious Disease field technical support consultant, the patient was converted to oral [...] treatment orders at the patient's SNF in [place] were adequate. No changes other than the [...] to discharge the patient back to her detention facility on 10/23/23. Unfortunately, though her detention facility received regular updates on the plan [...] continue, would suggest further evaluation with pulmonology. AGE CONTROL OPERATOR documented in this encounter Plan of Treatment Not on file documented as of this encounter Procedures Procedure Name Priority Date/Time Associated Diagnosis Comments DX CHEST PORTABLE 1 VIEW RAD - Routine (most inpatients and all outpatients) 10/27/2023 10:24 AM YARDAGE CONTROL OPERATOR URINALYSIS WITH MICROSCOPIC Routine 10/27/2023 10:15 AM YARDAGE CONTROL OPERATOR MORPHOLOGY EVALUATION Routine 10/27/2023 6:48 AM YARDAGE CONTROL OPERATOR CBC WITH DIFFERENTIAL, B Routine 10/27/2023 6:48 AM YARDAGE CONTROL OPERATOR BASIC METABOLIC PANEL, S/P Routine 10/27/2023 6:48 AM YARDAGE CONTROL OPERATOR DX CHEST PORTABLE 1 VIEW RAD - Semiurgent (Fast; most ED patients; some inpatients) 10/22/2023 10:53 AM YARDAGE CONTROL OPERATOR MORPHOLOGY EVALUATION Routine 10/22/2023 6:19 AM YARDAGE CONTROL OPERATOR CBC WITH DIFFERENTIAL, B Routine 10/22/2023 6:19 AM YARDAGE CONTROL OPERATOR C-REACTIVE PROTEIN (CRP), S/P Routine 10/22/2023 6:19 AM YARDAGE CONTROL OPERATOR MORPHOLOGY EVALUATION Routine 10/21/2023 6:32 AM YARDAGE CONTROL OPERATOR CBC WITH DIFFERENTIAL, B Routine 10/21/2023 6:32 AM YARDAGE CONTROL OPERATOR BASIC METABOLIC PANEL, S/P Routine 10/21/2023 6:32 AM YARDAGE CONTROL OPERATOR MORPHOLOGY EVALUATION Routine 10/20/2023 6:08 AM YARDAGE CONTROL OPERATOR CBC WITH DIFFERENTIAL, B Routine 10/20/2023 6:08 AM YARDAGE CONTROL OPERATOR C-REACTIVE PROTEIN (CRP), S/P Routine 10/20/2023 6:08 AM YARDAGE CONTROL OPERATOR BASIC METABOLIC PANEL, S/P Routine 10/20/2023 6:08 AM YARDAGE CONTROL OPERATOR MORPHOLOGY EVALUATION Routine 10/19/2023 4:27 AM YARDAGE CONTROL OPERATOR HEPATIC FUNCTION PANEL, S Routine 10/19/2023 4:27 AM YARDAGE CONTROL OPERATOR D-DIMER, P Routine 10/19/2023 4:27 AM YARDAGE CONTROL OPERATOR CBC WITH DIFFERENTIAL, B Routine 10/19/2023 4:27 AM YARDAGE CONTROL OPERATOR C-REACTIVE PROTEIN (CRP), S/P Routine 10/19/2023 4:27 AM YARDAGE CONTROL OPERATOR BASIC METABOLIC PANEL, S/P Routine 10/19/2023 4:27 AM YARDAGE CONTROL OPERATOR NASAL SCREEN FOR MRSA BY RAPID PCR Routine 10/19/2023 3:35 AM YARDAGE CONTROL OPERATOR documented in this encounter Results * DX Chest Portable 1 View (10/27/2023 10:24 AM YARDAGE CONTROL OPERATOR) Anatomical Region Laterality Modality Chest, Thoracic RST LOS, Tho racic ARZ LOS, Thoracic FLA LOS N/A Digital Radiography Impressions 10/27/2023 10:34 AM YARDAGE CONTROL OPERATOR No acute infiltrates. There is of bibasilar discoid atelectasis as described. Narrative 10/27/2023 10:34 AM YARDAGE CONTROL OPERATOR EXAM: DX CHEST PORTABLE 1 VIEW COMPARISON: [...] Microscopic: Urine, Indwelling Catheter (10/27/2023 10:15 AM YARDAGE CONTROL OPERATOR) Source Urine, Urine, Indwelling Catheter 10/27/2023 10:20 AM YARDAGE CONTROL OPERATOR [facility] Clarity Slightly Cloudy(A) Clear 10/27/2023 10:22 AM YARDAGE CONTROL OPERATOR [facility] Color Yellow 10/27/2023 10:22 AM YARDAGE CONTROL OPERATOR [facility] Comment: ----REFERENCE VALUE---- Colorless Yellow Alana Blood Moderate(A) Negative 10/27/2023 10:22 AM YARDAGE CONTROL OPERATOR [facility] Nitrite Negative Negative 10/27/2023 10:22 AM YARDAGE CONTROL OPERATOR [facility] Leukocyte Esterase Moderate(A) Negative 10/27/2023 10:22 AM YARDAGE CONTROL OPERATOR [facility] Protein Negative mg/dL 10/27/2023 10:22 AM YARDAGE CONTROL OPERATOR [facility] Comment: ----REFERENCE VALUE---- Negative Trace Glucose Negative Negative mg/dL 10/27/2023 10:22 AM YARDAGE CONTROL OPERATOR [facility] Ketones, QI(U) Negative Negative mg/dL 10/27/2023 10:22 AM YARDAGE CONTROL OPERATOR [facility] Bilirubin Negative Negative 10/27/2023 10:22 AM YARDAGE CONTROL OPERATOR [facility] pH 5.5 5.0 - 8.0 10/27/2023 10:22 AM YARDAGE CONTROL OPERATOR [facility] Specific [place] 1.015 1.001 - 1.035 10/27/2023 10:22 AM YARDAGE CONTROL OPERATOR [facility] Urobilinogen 0.2 0.2 - 1.0 mg/dL 10/27/2023 10:22 AM YARDAGE CONTROL OPERATOR [facility] White Blood Cells 31-40(A) /hpf 10/27/2023 10:33 AM YARDAGE CONTROL OPERATOR [facility] Comment: ----REFERENCE VALUE---- Males: 0-3 Females: 0-10 Unknown: 0-10 Red Blood Cells 11-20(A) 0 - 2 /hpf 10:33 AM YARDAGE CONTROL OPERATOR [facility] Dysmorphic Red Blood Cells <=25 <=25 % 10/27/2023 10:33 AM YARDAGE CONTROL OPERATOR [facility] Hyaline Casts 1-3 /lpf 10/27/2023 10:33 AM YARDAGE CONTROL OPERATOR [facility] Crystals Calcium Oxalate(A) None Seen /lpf 10/27/2023 10:33 AM YARDAGE CONTROL OPERATOR [facility] Mucus Present /hpf 10/27/2023 10:33 AM YARDAGE CONTROL OPERATOR [facility] Squamous Cells Occ-3 /hpf 10/27/2023 10:33 AM YARDAGE CONTROL OPERATOR [facility] Bacteria Present(A) None Seen 10/27/2023 10:33 AM YARDAGE CONTROL OPERATOR [facility] Yeast Present(A) None Seen 10/27/2023 10:33 AM YARDAGE CONTROL OPERATOR [facility] Urine (Urine, Indwelling Catheter) 10/27/2023 10:15 AM YARDAGE CONTROL OPERATOR 10/27/2023 10:20 AM YARDAGE CONTROL OPERATOR Camden Munoz M.D. LAB URINE ORDERABLES [facility] [address] [place] [id number], [facility] in [place] [address] * (ABNORMAL) Morphology Evaluation (10/27/2023 6:48 AM YARDAGE CONTROL OPERATOR) RBC Morphology See Specific Findings 10/27/2023 7:34 AM YARDAGE CONTROL OPERATOR [facility] PLT Morphology Normal 10/27/2023 7:34 AM YARDAGE CONTROL OPERATOR [facility] PLT Estimate Adequate Adequate 10/27/2023 7:34 AM YARDAGE CONTROL OPERATOR [facility] Anisocytosis Slight(A) 10/27/2023 7:34 AM YARDAGE CONTROL OPERATOR [facility] Reactive/Atypica l Lymphocytes Present(A) Not Seen 10/27/2023 7:34 AM YARDAGE CONTROL OPERATOR [facility] Hypochromia Slight(A) Not Seen 10/27/2023 7:34 AM YARDAGE CONTROL OPERATOR [facility] Blood 10/27/2023 6:48 AM YARDAGE CONTROL OPERATOR 10/27/2023 7:04 AM YARDAGE CONTROL OPERATOR Nicole Kaiser M.D. LAB BLOOD ADD-ON [facility] [address] [place] [phone], [facility] in [address] [address] * (ABNORMAL) Basic Metabolic Panel (10/27/2023 6:48 AM YARDAGE CONTROL OPERATOR) Potassium, P 4.2 3.6 - 5.2 mmol/L 10/27/2023 8:08 AM YARDAGE CONTROL OPERATOR [facility] Sodium, P 139 135 - 145 mmol/L 10/27/2023 7:28 AM YARDAGE CONTROL OPERATOR [facility] Chloride, P 98 98 - 107 mmol/L 10/27/2023 7:28 AM YARDAGE CONTROL OPERATOR [facility] Bicarbonate, P 28 22 - 29 mmol/L 10/27/2023 7:28 AM YARDAGE CONTROL OPERATOR [facility] Anion Gap, P 13 7 - 15 10/27/2023 7:28 AM YARDAGE CONTROL OPERATOR [facility] BUN (Blood Urea Nitrogen), P 44(H) 6 - 21 mg/dL 10/27/2023 7:28 AM YARDAGE CONTROL OPERATOR [facility] Creatinine 0.35(L) 0.59 - 1.04 mg/dL 10/27/2023 7:28 AM YARDAGE CONTROL OPERATOR [facility] Estimated GFR (eGFR) >90 >=60 mL/min/BSA 10/27/2023 7:28 AM YARDAGE CONTROL OPERATOR [facility] Comment: Estimated GFR calculated using the 2020 CKD_EPI creatinine equation. Calcium, Total, P 10.1 8.8 - 10.2 mg/dL 10/27/2023 7:28 AM YARDAGE CONTROL OPERATOR [facility] Glucose, P 117 70 - 140 mg/dL 10/27/2023 7:28 AM YARDAGE CONTROL OPERATOR [facility] Blood (Blood, Venous) 10/27/2023 6:48 AM YARDAGE CONTROL OPERATOR 10/27/2023 7:04 AM YARDAGE CONTROL OPERATOR Nicole Kaiser M.D. LAB BLOOD ADD-ON [facility] [address] [place] [id number], [facility] in [address] [address] * (ABNORMAL) CBC with Differential, Blood (10/27/2023 6:48 AM YARDAGE CONTROL OPERATOR) Hemoglobin 14.4 11.6 - 15.0 g/dL 10/27/2023 7:34 AM YARDAGE CONTROL OPERATOR [facility] Hematocrit 46.5(H) 35.5 - 44.9 % 10/27/2023 7:34 AM YARDAGE CONTROL OPERATOR [facility] Erythrocytes 5.46(H) 3.92 - 5.13 x10(12)/L 10/27/2023 7:34 AM YARDAGE CONTROL OPERATOR [facility] MCV 85.2 78.2 - 97.9 fL 10/27/2023 7:34 AM YARDAGE CONTROL OPERATOR [facility] RBC Distrib Width 19.9(H) 12.2 - 16.1 % 10/27/2023 7:34 AM YARDAGE CONTROL OPERATOR [facility] Platelet Count 293 157 - 371 x10(9)/L 10/27/2023 7:34 AM YARDAGE CONTROL OPERATOR [facility] Leukocytes 21.8(H) 3.4 - 9.6 x10(9)/L 10/27/2023 7:34 AM YARDAGE CONTROL OPERATOR [facility] Neutrophils 14.70(H) 1.56 - 6.45 x10(9)/L 10/27/2023 7:34 AM YARDAGE CONTROL OPERATOR [facility] Lymphocytes 5.51(H) 0.95 - 3.07 x10(9)/L 10/27/2023 7:34 AM YARDAGE CONTROL OPERATOR [facility] Monocytes 1.35(H) 0.26 - 0.81 x10(9)/L 10/27/2023 7:34 AM YARDAGE CONTROL OPERATOR [facility] Eosinophils 0.09 0.03 - 0.48 x10(9)/L 10/27/2023 7:34 AM YARDAGE CONTROL OPERATOR [facility] Basophils 0.10(H) 0.01 - 0.08 x10(9)/L 10/27/2023 7:34 AM YARDAGE CONTROL OPERATOR [facility] Blood (Blood, Venous) 10/27/2023 6:48 AM YARDAGE CONTROL OPERATOR 10/27/2023 7:04 AM YARDAGE CONTROL OPERATOR Nicole Kaiser M.D. LAB BLOOD ADD-ON [facility] [address] [place] [phone], [facility] [place] [address] [place] [phone] * DX Chest Portable 1 View (10/22/2023 10:53 AM YARDAGE CONTROL OPERATOR) Anatomical Region Laterality Modality Chest, Thoracic RST LOS, Tho racic ARZ LOS, Thoracic FLA LOS N/A Digital Radiography Impressions 10/22/2023 10:56 AM YARDAGE CONTROL OPERATOR Decreasing infiltrate in the RIGHT lower lobe since October 18. Narrative 10/22/2023 10:56 AM YARDAGE CONTROL OPERATOR EXAM: DX CHEST PORTABLE 1 VIEW COMPARISON: [...] * (ABNORMAL) Morphology Evaluation (10/22/2023 6:19 AM YARDAGE CONTROL OPERATOR) RBC Morphology See Specific Findings 10/22/2023 7:09 AM YARDAGE CONTROL OPERATOR [facility] PLT Morphology Normal 10/22/2023 7:09 AM YARDAGE CONTROL OPERATOR [facility] PLT Estimate Adequate Adequate 10/22/2023 7:09 AM YARDAGE CONTROL OPERATOR [facility] Anisocytosis Slight(A) 10/22/2023 7:09 AM YARDAGE CONTROL OPERATOR [facility] Microcytosis Slight(A) Not Seen 10/22/2023 7:09 AM YARDAGE CONTROL OPERATOR [facility] Blood 10/22/2023 6:19 AM YARDAGE CONTROL OPERATOR 10/22/2023 6:39 AM YARDAGE CONTROL OPERATOR Williams Barber M.D. LAB BLOOD ADD -ON Performing Organization Address City/[facility]/ZIP Co de Phone Number [facility] [address] [place] [phone], [facility] in [address] [address] * (ABNORMAL) CRP (C-Reactive Protein) (10/22/2023 6:19 AM YARDAGE CONTROL OPERATOR) Pathologist [facility] C-Reactive Protein (CRP), P 12.0(H) <5.0 mg/L 10/22/2023 7:01 AM YARDAGE CONTROL OPERATOR [facility] Blood (Blood, Venous) 10/22/2023 6:19 AM YARDAGE CONTROL OPERATOR 10/22/2023 6:39 AM YARDAGE CONTROL OPERATOR Williams Barber M.D. LAB BLOOD ADD -ON Performing Organization Address [facility]/ZIP Co de Phone Number [facility] [address] [place] [phone], [facility] in [address] [address] * (ABNORMAL) CBC with Differential, Blood (10/22/2023 6:19 AM YARDAGE CONTROL OPERATOR) Hemoglobin 12.7 11.6 - 15.0 g/dL 10/22/2023 7:02 AM YARDAGE CONTROL OPERATOR [facility] Hematocrit 41.2 35.5 - 44.9 % 10/22/2023 7:02 AM YARDAGE CONTROL OPERATOR [facility] Erythrocytes 4.85 3.92 - 5.13 x10(12)/L 10/22/2023 7:02 AM YARDAGE CONTROL OPERATOR [facility] MCV 84.9 78.2 - 97.9 fL 10/22/2023 7:02 AM YARDAGE CONTROL OPERATOR [facility] RBC Distrib Width 19.3(H) 12.2 - 16.1 % 10/22/2023 7:02 AM YARDAGE CONTROL OPERATOR [facility] Platelet Count 273 157 - 371 x10(9)/L 10/22/2023 7:02 AM YARDAGE CONTROL OPERATOR [facility] Leukocytes 13.9(H) 3.4 - 9.6 x10(9)/L 10/22/2023 7:02 AM YARDAGE CONTROL OPERATOR [facility] Neutrophils 9.71(H) 1.56 - 6.45 x10(9)/L 10/22/2023 7:02 AM YARDAGE CONTROL OPERATOR [facility] Lymphocytes 2.90 0.95 - 3.07 x10(9)/L 10/22/2023 7:02 AM YARDAGE CONTROL OPERATOR [facility] Monocytes 1.21(H) 0.26 - 0.81 x10(9)/L 10/22/2023 7:02 AM YARDAGE CONTROL OPERATOR [facility] Eosinophils 0.00(L) 0.03 - 0.48 x10(9)/L 10/22/2023 7:02 AM YARDAGE CONTROL OPERATOR [facility] Basophils 0.03 0.01 - 0.08 x10(9)/L 10/22/2023 7:02 AM YARDAGE CONTROL OPERATOR [facility] Blood (Blood, Venous) 10/22/2023 6:19 AM YARDAGE CONTROL OPERATOR 10/22/2023 6:39 AM YARDAGE CONTROL OPERATOR Williams Barber M.D. LAB BLOOD ADD -ON [facility] [address] [place] [address], [facility] [place] [address] * (ABNORMAL) Morphology Evaluation (10/21/2023 6:32 AM YARDAGE CONTROL OPERATOR) RBC Morphology See Specific Findings 10/21/2023 7:30 AM YARDAGE CONTROL OPERATOR [facility] PLT Morphology Normal 10/21/2023 7:30 AM YARDAGE CONTROL OPERATOR [facility] PLT Estimate Adequate Adequate 10/21/2023 7:30 AM YARDAGE CONTROL OPERATOR [facility] Anisocytosis Slight(A) 10/21/2023 7:30 AM YARDAGE CONTROL OPERATOR [facility] Microcytosis Slight(A) Not Seen 10/21/2023 7:30 AM YARDAGE CONTROL OPERATOR [facility] Blood 10/21/2023 6:32 AM YARDAGE CONTROL OPERATOR 10/21/2023 6:44 AM YARDAGE CONTROL OPERATOR Akochi O Agunwamba M.D. LAB BLOOD ADD-ON [facility] [address] [place] [phone], [facility] in [address] [address] * (ABNORMAL) CBC with Differential, Blood (10/21/2023 6:32 AM YARDAGE CONTROL OPERATOR) Hemoglobin 12.0 11.6 - 15.0 g/dL 10/21/2023 7:15 AM YARDAGE CONTROL OPERATOR [facility] Hematocrit 39.7 35.5 - 44.9 % 10/21/2023 7:15 AM YARDAGE CONTROL OPERATOR [facility] Erythrocytes 4.63 3.92 - 5.13 x10(12)/L 10/21/2023 7:15 AM YARDAGE CONTROL OPERATOR [facility] MCV 85.7 78.2 - 97.9 fL 10/21/2023 7:15 AM YARDAGE CONTROL OPERATOR [facility] RBC Distrib Width 19.3(H) 12.2 - 16.1 % 10/21/2023 7:15 AM YARDAGE CONTROL OPERATOR [facility] Platelet Count 260 157 - 371 x10(9)/L 10/21/2023 7:15 AM YARDAGE CONTROL OPERATOR [facility] Leukocytes 12.7(H) 3.4 - 9.6 x10(9)/L 10/21/2023 7:15 AM YARDAGE CONTROL OPERATOR [facility] Neutrophils 8.59(H) 1.56 - 6.45 x10(9)/L 10/21/2023 7:15 AM YARDAGE CONTROL OPERATOR [facility] Lymphocytes 3.13(H) 0.95 - 3.07 x10(9)/L 10/21/2023 7:15 AM YARDAGE CONTROL OPERATOR [facility] Monocytes 0.96(H) 0.26 - 0.81 x10(9)/L 10/21/2023 7:15 AM YARDAGE CONTROL OPERATOR [facility] Eosinophils 0.01(L) 0.03 - 0.48 x10(9)/L 10/21/2023 7:15 AM YARDAGE CONTROL OPERATOR [facility] Basophils 0.01 0.01 - 0.08 x10(9)/L 10/21/2023 7:15 AM YARDAGE CONTROL OPERATOR [facility] Blood (Blood, Venous) 10/21/2023 6:32 AM YARDAGE CONTROL OPERATOR 10/21/2023 6:44 AM YARDAGE CONTROL OPERATOR Pancho Burr M.D. LAB BLOOD ADD-ON Performing Organization Address City/[facility]/ZIP Co de Phone Number [facility] [address] [place] [phone], [facility] in [address] [address] * (ABNORMAL) Basic Metabolic Panel (10/21/2023 6:32 AM YARDAGE CONTROL OPERATOR) Potassium, P 4.2 3.6 - 5.2 mmol/L 10/21/2023 7:08 AM YARDAGE CONTROL OPERATOR [facility] Sodium, P 137 135 - 145 mmol/L 10/21/2023 7:08 AM YARDAGE CONTROL OPERATOR [facility] Chloride, P 97(L) 98 - 107 mmol/L 10/21/2023 7:08 AM YARDAGE CONTROL OPERATOR [facility] Bicarbonate, P 30(H) 22 - 29 mmol/L 10/21/2023 7:07 AM YARDAGE CONTROL OPERATOR [facility] Anion Gap, P 10 7 - 15 10/21/2023 7:08 AM YARDAGE CONTROL OPERATOR [facility] BUN (Blood Urea Nitrogen), P 36(H) 6 - 21 mg/dL 10/21/2023 7:07 AM YARDAGE CONTROL OPERATOR [facility] Creatinine 0.37(L) 0.59 - 1.04 mg/dL 10/21/2023 7:07 AM YARDAGE CONTROL OPERATOR [facility] Estimated GFR (eGFR) >90 >=60 mL/min/BSA 10/21/2023 7:07 AM YARDAGE CONTROL OPERATOR [facility] Comment: Estimated GFR calculated using the 2020 CKD_EPI creatinine equation. Calcium, Total, P 9.1 8.8 - 10.2 mg/dL 10/21/2023 7:07 AM YARDAGE CONTROL OPERATOR [facility] Glucose, P 119 70 - 140 mg/dL 10/21/2023 7:07 AM YARDAGE CONTROL OPERATOR [facility] Blood (Blood, Venous) 10/21/2023 6:32 AM YARDAGE CONTROL OPERATOR 10/21/2023 6:45 AM YARDAGE CONTROL OPERATOR Pancho Burr M.D. LAB BLOOD ADD-ON Performing Organization Address City/[facility]/ZIP Co de Phone Number [facility] [address] [place] [phone], [place] [facility] in [address] [address] * (ABNORMAL) Morphology Evaluation (10/20/2023 6:08 AM YARDAGE CONTROL OPERATOR) Pathologist [facility] RBC Morphology See Specific Findings 10/20/2023 6:49 AM YARDAGE CONTROL OPERATOR [facility] PLT Morphology See Specific Findings 10/20/2023 6:49 AM YARDAGE CONTROL OPERATOR [facility] PLT Estimate Adequate Adequate 10/20/2023 6:49 AM YARDAGE CONTROL OPERATOR [facility] Anisocytosis Slight(A) 10/20/2023 6:49 AM YARDAGE CONTROL OPERATOR [facility] Hypochromia Slight(A) Not Seen 10/20/2023 6:49 AM YARDAGE CONTROL OPERATOR [facility] Large PLT Present(A) Not Seen 10/20/2023 6:49 AM YARDAGE CONTROL OPERATOR [facility] Blood 10/20/2023 6:08 AM YARDAGE CONTROL OPERATOR 10/20/2023 6:16 AM YARDAGE CONTROL OPERATOR Pancho Burr M.D. LAB BLOOD ADD-ON Performing Organization Address [facility]/ZIP Co de Phone Number [facility] [address] [place] [phone], [facility] in [address] [address] * (ABNORMAL) CRP (C-Reactive Protein) (10/20/2023 6:08 AM YARDAGE CONTROL OPERATOR) [facility] C-Reactive Protein (CRP), P 49.7(H) <5.0 mg/L 10/20/2023 6:38 AM YARDAGE CONTROL OPERATOR [facility] Blood (Blood, Venous) 10/20/2023 6:08 AM YARDAGE CONTROL OPERATOR 10/20/2023 6:16 AM YARDAGE CONTROL OPERATOR Pancho Burr M.D. LAB BLOOD ADD-ON Performing Organization Address City/[facility]/ZIP Co de Phone Number [facility] [address] [place] [phone], [facility] in [address] [address] * (ABNORMAL) CBC with Differential, Blood (10/20/2023 6:08 AM YARDAGE CONTROL OPERATOR) Pathologist [facility] Hemoglobin 11.7 11.6 - 15.0 g/dL 10/20/2023 6:48 AM YARDAGE CONTROL OPERATOR [facility] Hematocrit 38.4 35.5 - 44.9 % 10/20/2023 6:48 AM YARDAGE CONTROL OPERATOR [facility] Erythrocytes 4.46 3.92 - 5.13 x10(12)/L 10/20/2023 6:48 AM YARDAGE CONTROL OPERATOR [facility] MCV 86.1 78.2 - 97.9 fL 10/20/2023 6:48 AM YARDAGE CONTROL OPERATOR [facility] RBC Distrib Width 19.5(H) 12.2 - 16.1 % 10/20/2023 6:48 AM YARDAGE CONTROL OPERATOR [facility] Platelet Count 239 157 - 371 x10(9)/L 10/20/2023 6:48 AM YARDAGE CONTROL OPERATOR [facility] Leukocytes 12.0(H) 3.4 - 9.6 x10(9)/L 10/20/2023 6:48 AM YARDAGE CONTROL OPERATOR [facility] Neutrophils 8.70(H) 1.56 - 6.45 x10(9)/L 10/20/2023 6:48 AM YARDAGE CONTROL OPERATOR [facility] Lymphocytes 2.52 0.95 - 3.07 x10(9)/L 10/20/2023 6:48 AM YARDAGE CONTROL OPERATOR [facility] Monocytes 0.74 0.26 - 0.81 x10(9)/L 10/20/2023 6:48 AM YARDAGE CONTROL OPERATOR [facility] Eosinophils 0.01(L) 0.03 - 0.48 x10(9)/L 10/20/2023 6:48 AM YARDAGE CONTROL OPERATOR [facility] Basophils 0.02 0.01 - 0.08 x10(9)/L 10/20/2023 6:48 AM YARDAGE CONTROL OPERATOR [facility] Blood (Blood, Venous) 10/20/2023 6:08 AM YARDAGE CONTROL OPERATOR 10/20/2023 6:16 AM YARDAGE CONTROL OPERATOR Pancho Burr M.D. LAB BLOOD ADD-ON [facility] [address] [place] [phone], [facility] in [address] [address] * (ABNORMAL) Basic Metabolic Panel (10/20/2023 6:08 AM YARDAGE CONTROL OPERATOR) Pathologist [facility] Potassium, P 4.4 3.6 - 5.2 mmol/L 10/20/2023 6:38 AM YARDAGE CONTROL OPERATOR [facility] Sodium, P 139 135 - 145 mmol/L 10/20/2023 6:38 AM YARDAGE CONTROL OPERATOR [facility] Chloride, P 98 98 - 107 mmol/L 10/20/2023 6:38 AM YARDAGE CONTROL OPERATOR [facility] Bicarbonate, P 31(H) 22 - 29 mmol/L 10/20/2023 6:38 AM YARDAGE CONTROL OPERATOR [facility] Anion Gap, P 10 7 - 15 10/20/2023 6:38 AM YARDAGE CONTROL OPERATOR [facility] BUN (Blood Urea Nitrogen), P 33(H) 6 - 21 mg/dL 10/20/2023 6:38 AM YARDAGE CONTROL OPERATOR [facility] Creatinine 0.43(L) 0.59 - 1.04 mg/dL 10/20/2023 6:38 AM YARDAGE CONTROL OPERATOR [facility] Estimated GFR (eGFR) >90 >=60 mL/min/BSA 10/20/2023 6:38 AM YARDAGE CONTROL OPERATOR [facility] Comment: Estimated GFR calculated using the 2020 CKD_EPI creatinine equation. Calcium, Total, P 8.9 8.8 - 10.2 mg/dL 10/20/2023 6:38 AM YARDAGE CONTROL OPERATOR [facility] Glucose, P 162(H) 70 - 140 mg/dL 10/20/2023 6:38 AM YARDAGE CONTROL OPERATOR [facility] Blood (Blood, Venous) 10/20/2023 6:08 AM YARDAGE CONTROL OPERATOR 10/20/2023 6:16 AM YARDAGE CONTROL OPERATOR Pancho Burr M.D. LAB BLOOD ADD-ON [facility] [address] [place] [phone], [facility] in [address] [address] * (ABNORMAL) Morphology Evaluation (10/19/2023 4:27 AM YARDAGE CONTROL OPERATOR) RBC Morphology See Specific Findings 10/19/2023 4:56 AM YARDAGE CONTROL OPERATOR [facility] PLT Morphology Normal 10/19/2023 4:56 AM YARDAGE CONTROL OPERATOR [facility] PLT Estimate Adequate Adequate 10/19/2023 4:56 AM YARDAGE CONTROL OPERATOR [facility] Anisocytosis Moderate(A) 10/19/2023 4:56 AM YARDAGE CONTROL OPERATOR [facility] Hypochromia Slight(A) Not Seen 10/19/2023 4:56 AM YARDAGE CONTROL OPERATOR [facility] Blood 10/19/2023 4:27 AM YARDAGE CONTROL OPERATOR 10/19/2023 4:29 AM YARDAGE CONTROL OPERATOR Pancho Burr M.D. LAB BLOOD ADD-ON [facility] [address] [place] [phone], [facility] in [address] [address] * (ABNORMAL) Hepatic Function Panel (10/19/2023 4:27 AM YARDAGE CONTROL OPERATOR) Bilirubin, Total, P 0.4 0.0 - 1.2 mg/dL 10/19/2023 4:49 AM YARDAGE CONTROL OPERATOR [facility] Bilirubin, Direct, P <0.2 0.0 - 0.3 mg/dL 10/19/2023 4:49 AM YARDAGE CONTROL OPERATOR [facility] Aspartate Aminotransferase (AST), P 38 8 - 43 U/L 10/19/2023 4:49 AM YARDAGE CONTROL OPERATOR [facility] Alanine Aminotransferase (ALT), P 17 7 - 45 U/L 10/19/2023 4:49 AM YARDAGE CONTROL OPERATOR [facility] Alkaline Phosphatase, P 148(H) 35 - 104 U/L 10/19/2023 4:49 AM YARDAGE CONTROL OPERATOR [facility] Albumin, P 3.1(L) 3.5 - 5.0 g/dL 10/19/2023 4:49 AM YARDAGE CONTROL OPERATOR [facility] Protein, Total, P 5.0(L) 6.3 - 7.9 g/dL 10/19/2023 4:49 AM YARDAGE CONTROL OPERATOR [facility] Blood (Blood, Venous) 10/19/2023 4:27 AM YARDAGE CONTROL OPERATOR 10/19/2023 4:29 AM YARDAGE CONTROL OPERATOR Pancho Burr M.D. LAB BLOOD ADD-ON [facility] [address] [place] [phone], [place] [facility] in [address] [address] * (ABNORMAL) CRP (C-Reactive Protein) (10/19/2023 4:27 AM YARDAGE CONTROL OPERATOR) Pathologist [facility] C-Reactive Protein (CRP), P 53.4(H) <5.0 mg/L 10/19/2023 4:49 AM YARDAGE CONTROL OPERATOR [facility] Blood (Blood, Venous) 10/19/2023 4:27 AM YARDAGE CONTROL OPERATOR 10/19/2023 4:29 AM YARDAGE CONTROL OPERATOR Pancho Burr M.D. LAB BLOOD ADD-ON [facility] [address] [place] [phone], [facility] in [address] [address] * (ABNORMAL) CBC with Differential, Blood (10/19/2023 4:27 AM YARDAGE CONTROL OPERATOR) Pathologist [facility] Hemoglobin 11.3(L) 11.6 - 15.0 g/dL 10/19/2023 4:56 AM YARDAGE CONTROL OPERATOR [facility] Hematocrit 37.3 35.5 - 44.9 % 10/19/2023 4:56 AM YARDAGE CONTROL OPERATOR [facility] Erythrocytes 4.37 3.92 - 5.13 x10(12)/L 10/19/2023 4:56 AM YARDAGE CONTROL OPERATOR [facility] MCV 85.4 78.2 - 97.9 fL 10/19/2023 4:56 AM YARDAGE CONTROL OPERATOR [facility] RBC Distrib Width 19.2(H) 12.2 - 16.1 % 10/19/2023 4:56 AM YARDAGE CONTROL OPERATOR [facility] Platelet Count 249 157 - 371 x10(9)/L 10/19/2023 4:56 AM YARDAGE CONTROL OPERATOR [facility] Leukocytes 16.0(H) 3.4 - 9.6 x10(9)/L 10/19/2023 4:56 AM YARDAGE CONTROL OPERATOR [facility] Neutrophils 12.40(H) 1.56 - 6.45 x10(9)/L 10/19/2023 4:56 AM YARDAGE CONTROL OPERATOR [facility] Lymphocytes 2.71 0.95 - 3.07 x10(9)/L 10/19/2023 4:56 AM YARDAGE CONTROL OPERATOR [facility] Monocytes 0.84(H) 0.26 - 0.81 x10(9)/L 10/19/2023 4:56 AM YARDAGE CONTROL OPERATOR [facility] Eosinophils 0.02(L) 0.03 - 0.48 x10(9)/L 10/19/2023 4:56 AM YARDAGE CONTROL OPERATOR [facility] Basophils 0.03 0.01 - 0.08 x10(9)/L 10/19/2023 4:56 AM YARDAGE CONTROL OPERATOR [facility] Blood (Blood, Venous) 10/19/2023 4:27 AM YARDAGE CONTROL OPERATOR 10/19/2023 4:29 AM YARDAGE CONTROL OPERATOR Pancho Burr M.D. LAB BLOOD ADD-ON [facility] [address] [place] [phone], [facility] [place] [address] * (ABNORMAL) Basic Metabolic Panel (10/19/2023 4:27 AM YARDAGE CONTROL OPERATOR) Potassium, P 3.6 3.6 - 5.2 mmol/L 10/19/2023 4:49 AM YARDAGE CONTROL OPERATOR [facility] Sodium, P 135 135 - 145 mmol/L 10/19/2023 4:49 AM YARDAGE CONTROL OPERATOR [facility] Chloride, P 95(L) 98 - 107 mmol/L 10/19/2023 4:49 AM YARDAGE CONTROL OPERATOR [facility] Bicarbonate, P 30(H) 22 - 29 mmol/L 10/19/2023 4:49 AM YARDAGE CONTROL OPERATOR [facility] Anion Gap, P 10 7 - 15 10/19/2023 4:49 AM YARDAGE CONTROL OPERATOR [facility] BUN (Blood Urea Nitrogen), P 23(H) 6 - 21 mg/dL 10/19/2023 4:49 AM YARDAGE CONTROL OPERATOR [facility] Creatinine 0.37(L) 0.59 - 1.04 mg/dL 10/19/2023 4:49 AM YARDAGE CONTROL OPERATOR [facility] Estimated GFR (eGFR) >90 >=60 mL/min/BSA 10/19/2023 4:49 AM YARDAGE CONTROL OPERATOR [facility] Comment: Estimated GFR calculated using the 2020 CKD_EPI creatinine equation. Calcium, Total, P 8.3(L) 8.8 - 10.2 mg/dL 10/19/2023 4:49 AM YARDAGE CONTROL OPERATOR [facility] Glucose, P 129 70 - 140 mg/dL 10/19/2023 4:49 AM YARDAGE CONTROL OPERATOR [facility] Blood (Blood, Venous) 10/19/2023 4:27 AM YARDAGE CONTROL OPERATOR 10/19/2023 4:29 AM YARDAGE CONTROL OPERATOR Pancho Burr M.D. LAB BLOOD ADD-ON Performing Organization Address City/[facility]/ZIP Co de Phone Number [facility] [address] [place] [phone], [facility] in [address] [address] * (ABNORMAL) D-Dimer (10/19/2023 4:27 AM YARDAGE CONTROL OPERATOR) Pathologist [facility] D-Dimer, P 3988(H) <=500 ng/mL FEU 10/19/2023 4:46 AM YARDAGE CONTROL OPERATOR [facility] Comment: D-dimer concentrations increase with age. [...] (PE). Blood (Blood, Venous) 10/19/2023 4:27 AM YARDAGE CONTROL OPERATOR 10/19/2023 4:29 AM YARDAGE CONTROL OPERATOR Pancho Burr M.D. LAB BLOOD ADD-ON Performing Organization Address City/[facility]/ZIP Co de Phone Number [facility] [address] [place] [phone], [facility] in [address] [address] * (ABNORMAL) MRSA PCR, Nasal (10/19/2023 3:35 AM YARDAGE CONTROL OPERATOR) MRSA Screen, Nasal by PCR Positive(A ) Negative 10/19/2023 5:28 PM YARDAGE CONTROL OPERATOR [facility] Semi-Urgent This is a semi-urgen t result(FLEMING) [facility] Swab (Nares) 10/19/2023 3:35 AM YARDAGE CONTROL OPERATOR 10/19/2023 4:22 PM YARDAGE CONTROL OPERATOR Pancho Burr M.D. LAB MICROBIOLOGY - GENERAL ORDERABLES 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) Chronic Diastolic (Congestive) Heart Failure (HCC) Paraplegia (HCC) Hypertension Essential Primary Arthritis Rheumatoid (HCC) Corticosteroid Treatment Screen Handler Systemic Neurogenic Bladder Other Adrenocortical Insufficiency (HCC) [...] Fri10/19/23 at 0900 Given 10/27/2023 8:07 AM YARDAGE CONTROL OPERATOR 1,000 mg Given 10/26/2023 8:20 PM YARDAGE CONTROL OPERATOR 1,000 mg Given 10/26/2023 1:37 PM YARDAGE CONTROL OPERATOR 1,000 mg amoxicillin-pot clavulanate 875-125 mg per tablet 1 tablet (AUGMENTIN) 1 tablet, oral, 2 times daily with meals, First dose on Fri10/22/23 at 1015, For 8 doses, Drug Monitoring Program: Pharmacist to adjust medication dosing based on indication and drug clearance factors., Indications: Respiratory tract infection, community acquired Given 10/25/2023 4:10 PM YARDAGE CONTROL OPERATOR 1 tablet Given 10/25/2023 8:50 AM YARDAGE CONTROL OPERATOR 1 tablet Given 10/24/2023 4:01 PM YARDAGE CONTROL OPERATOR 1 tablet ascorbic acid (vitamin C) tablet 1,000 mg (VITAMIN C) 1,000 mg, oral, Daily, First dose on Fri10/19/23 at 0900 Given 10/27/2023 8:07 AM YARDAGE CONTROL OPERATOR 1,000 mg Given 10/26/2023 9:04 AM YARDAGE CONTROL OPERATOR 1,000 mg Given 10/25/2023 8:52 AM YARDAGE CONTROL OPERATOR 1,000 mg benzonatate capsule 100 mg (TESSALON PERLES) 100 mg, oral, 4 times daily, First dose (after last modification) on Fri10/19/23 at 1330, Swallow whole. Do NOT crush, chew or open capsule. Given 10/19/2023 9:44 PM YARDAGE CONTROL OPERATOR 100 mg Given 10/19/2023 4:16 PM YARDAGE CONTROL OPERATOR 100 mg Given 10/19/2023 1:20 PM YARDAGE CONTROL OPERATOR 100 mg benzonatate capsule 100 mg (TESSALON PERLES) 100 mg, oral, 3 times daily PRN, cough, Starting on Fri10/21/23 at 1145, Swallow whole. Do NOT crush, chew or open capsule. bisacodyL suppository 10 mg (DULCOLAX) 10 mg, rectal, 2 times daily PRN, constipation, Starting on 10/19/23 at 0212 Given 10/26/2023 9:05 AM YARDAGE CONTROL OPERATOR 10 mg Given 10/22/2023 1:26 PM YARDAGE CONTROL OPERATOR 10 mg carboxymethylcellulose 0.5 % ophthalmic solution 1 drop (REFRESH PLUS) 1 drop, both eyes, 3 times daily PRN, dry eyes, Starting on 10/25/23 at 1121 Given 10/25/2023 4:13 PM YARDAGE CONTROL OPERATOR 1 drop ceFEPIme injection 2 g (MAXIPIME) 2 g, intravenous, Every 12 hours, First dose on Fri10/19/23 at 0900, For 9 doses, If needed, reconstitute vial per package insert instructions. See IVAG for administration guidelines., Drug Monitoring Program: Pharmacist to adjust medication dosing based on indication and drug clearance factors., Indications: Pneumonia Given 10/19/2023 9:01 AM YARDAGE CONTROL OPERATOR 2 g cefTRIAXone injection 2 g (ROCEPHIN) 2 g, intravenous, Daily at bedtime, First dose on Fri10/19/23 at 2115, If needed, reconstitute vial per package insert instructions. See IVAG for administration guidelines., Drug Monitoring Program: Pharmacist to adjust medication dosing based on indication and drug clearance factors., Indications: Aspiration pneumonia Given 10/21/2023 8:28 PM YARDAGE CONTROL OPERATOR 2 g Given 10/20/2023 8:31 PM YARDAGE CONTROL OPERATOR 2 g Given 10/19/2023 9:43 PM YARDAGE CONTROL OPERATOR 2 g doxycycline 100 mg in NaCl 0.9% IVPB (VIBRAMYCIN) 100 mg, intravenous, at 100 mL/hr, Administer over 60 Minutes, Every 12 hours, First dose on Fri10/19/23 at 0900, For 9 doses, Mini-Bag Plus bag, Indications: Pnemonia Rate/Dose Change 10/20/2023 8:25 AM [employer]ARDAGE CONTR[employer] OPERATOR 75 mL /hr New Bag 10/20/2023 8:10 AM [employer]AGE [employer]PER[employer] 100 mg 100 mL/hr New Bag 10/19/2023 9:44 PM [employer] 100 mg 100 mL/hr doxycycline monohydrate tablet [...] infection, community acquired Given 10/23/2023 6:39 AM [employer]AGE [employer]PER[employer] 100 mg Given 10/22/2023 4:01 PM [employer] 100 mg Given 10/22/2023 6:17 AM [employer]AGE [employer] 100 mg furosemide tablet 40 mg (LASIX) 40 mg, oral, Daily, First dose (after last modification) on 10/25/23 at 0900 Given 10/27/2023 8:07 AM [employer]AGE [employer] 40 mg Given 10/26/2023 9:05 AM [employer]AGE [employer] OPERATOR 40 mg Given 10/25/2023 8:51 AM [employer]AGE [employer] 40 mg furosemide tablet 50 mg (LASIX) 50 mg, oral, 2 times daily, First dose on Fri10/19/23 at 0900 Given 10/24/2023 8:31 AM [employer] 50 mg Given 10/23/2023 5:31 PM [employer]AGE [employer] 50 mg Given 10/23/2023 8:18 AM [employer]AGE [employer] 50 mg gabapentin capsule 300 mg (NEURONTIN) 300 mg, oral, 3 times daily, First dose on Fri10/19/23 at 0900 Given 10/27/2023 8:07 AM [employer]AGE [employer] 300 mg Given 10/26/2023 8:20 PM [employer]AGE [employer]ATOR 300 mg Given 10/26/2023 1:37 PM [employer] 300 mg ipratropium 0.02 % nebulizer solution 500 mcg (ATROVENT) 500 mcg (0.5 mg), nebulization, Every 6 hours scheduled, First dose on Fri10/20/23 at 0000 Given 10/21/2023 6:27 AM [employer]AGE [employer] 500 mcg Given 10/21/2023 12:15 AM [employer]AGE [employer]ATOR 500 mcg Given 10/20/2023 6:34 PM [employer]AGE [employer] 500 mcg ipratropium 0.02 % nebulizer solution 500 mcg (ATROVENT) 500 mcg (0.5 mg), nebulization, 3 times daily (RT), First dose (after last modification) on Fri10/21/23 at 1300 Given 10/27/2023 6:15 AM [employer]AGE [employer] 500 mcg Given 10/26/2023 6:17 PM [employer]AGE [employer]ATOR 500 mcg Given 10/26/2023 12:00 PM [employer] 500 mcg ipratropium-albuteroL 0.5-2.5 mg/3 mL nebulizer solution 3 mL (DUONEB) 3 mL, nebulization, Every 6 hours scheduled, First dose on Fri10/19/23 at 0600 Given 10/19/2023 11:32 AM YARDAGE CONTROL OPERATOR 3 mL Given 10/19/2023 6:37 AM YARDAGE CONTROL OPERATOR 3 mL metoprolol succinate 24 hr tablet 50 mg (TOPROL-XL) 50 mg, oral, Daily, First dose on Fri10/19/23 at 0900, Do NOT crush or chew. Tablet may be split on score if needed. Given 10/19/2023 8:49 AM YARDAGE CONTROL OPERATOR 50 mg metoprolol succinate 24 hr tablet 50 mg (TOPROL-XL) 50 mg, oral, Daily, First dose on Fri10/20/23 at 0900, Hypertension Do NOT crush or chew. Tablet may be split on score if needed. Given 10/27/2023 8:07 AM YARDAGE CONTROL OPERATOR 50 m g Given 10/26/2023 9:04 AM YARDAGE CONTROL OPERATOR 50 mg Given 10/25/2023 8:50 AM YARDAGE CONTROL OPERATOR 50 mg miconazole 2 % powder 1 Application (MICATIN) 1 Application, topical, 2 times daily, First dose on Fri10/19/23 at 0900, Apply to skin folds and groin Given 10/27/2023 8:08 AM YARDAGE CONTROL OPERATOR 1 Application Given 10/26/2023 8:21 PM YARDAGE CONTROL OPERATOR 1 Application Given 10/26/2023 9:10 AM YARDAGE CONTROL OPERATOR 1 Application oxyCODONE IR tablet 10 mg (ROXICODONE) 10 mg, oral, Once, On [facility] 10/23/23 at 1730, For 1 dose Given 10/23/2023 5:31 PM YARDAGE CONTROL OPERATOR 10 mg oxyCODONE IR tablet 5 mg (ROXICODONE) 5 mg, oral, Every 4 hours PRN, moderate pain or score 4-6 of 10, severe pain or score 7-10 of 10, Hold for sedation., Starting on Fri10/19/23 at 0212, Indications: Chronic Pain/Nonacute Pain Given 10/19/2023 12:30 PM YARDAGE CONTROL OPERATOR 5 mg Given 10/19/2023 7:21 AM YARDAGE CONTROL OPERATOR 5 mg oxyCODONE IR tablet 5 mg (ROXICODONE) 5 mg, oral, Once, On Fri10/19/23 at 1715, For 1 dose, To help with wound VAC application. Given 10/19/2023 5:21 PM YARDAGE CONTROL OPERATOR 5 mg oxyCODONE IR tablet 5 mg (ROXICODONE) 5 mg, oral, Every 4 hours PRN, moderate pain or score 4-6 of 10, severe pain or score 7-10 of 10, Please give oxycodone about 30 minutes before wound cares. Hold for sedation., Starting on Fri10/19/23 at 1653, Indications: Chronic Pain/Nonacute Pain Given 10/27/2023 11:53 AM YARDAGE CONTROL OPERATOR 5 mg Given 10/27/2023 1:04 AM YARDAGE CONTROL OPERATOR 5 mg Given 10/26/2023 8:20 PM YARDAGE CONTROL OPERATOR [address] tablet 40 mg (PROTONIX) 40 mg, oral, 2 times daily before breakfast and dinner, First dose on Fri10/19/23 at 0700, pantoprazole 40 mg oral twice daily was interchanged for omeprazole 20 or 40 mg oral twice daily Swallow whole. Do NOT crush, chew, or split tablet. Given 10/27/2023 6:15 AM YARDAGE CONTROL OPERATOR 40 mg Given 10/26/2023 4:08 PM YARDAGE CONTROL OPERATOR 40 mg Given 10/26/2023 6:36 AM YARDAGE CONTROL OPERATOR 40 mg pediatric ckaosdzembor-znka-nopgmjdh chewable tablet 1 tablet (FLINTSTONES COMPLETE) 1 tablet, oral, Daily, First dose on 10/19/23 at 0900 Given 10/27/2023 8:07 AM YARDAGE CONTROL OPERATOR 1 tablet Given 10/26/2023 9:04 AM YARDAGE CONTROL OPERATOR 1 tablet Given 10/25/2023 8:50 AM YARDAGE CONTROL OPERATOR 1 tablet potassium chloride ER tablet 20 mEq (KLORCON/K-TAB) 20 mEq, oral, 3 times daily with meals, First dose on 10/19/23 at 0800, potassium chloride orderable was interchanged for potassium chloride tablet/capsule Swallow whole. Do NOT crush, chew, or split tablet. Given 10/27/2023 11:53 AM YARDAGE CONTROL OPERATOR 20 mEq Given 10/27/2023 8:07 AM YARDAGE CONTROL OPERATOR 20 mEq Given 10/26/2023 4:08 PM YARDAGE CONTROL OPERATOR 20 mEq predniSONE tablet 10 mg (DELTASONE) 10 mg, oral, Daily, First dose on 10/19/23 at 0900 Given 10/19/2023 8:49 AM YARDAGE CONTROL OPERATOR 10 mg predniSONE tablet 10 mg (DELTASONE) 10 mg, oral, Daily, First dose (after last modification) on 10/28/23 at 0900, Rheumatoid arthritis and adrenal insufficiency. predniSONE tablet 20 mg (DELTASONE) 20 mg, oral, Daily, First dose on 10/25/23 at 0900, For 2 doses Given 10/26/2023 9:04 AM YARDAGE CONTROL OPERATOR 20 mg Given 10/25/2023 8:52 AM YARDAGE CONTROL OPERATOR 20 mg predniSONE tablet 25 mg (DELTASONE) 25 mg, oral, Once, On 10/19/23 at 1645, For 1 dose, Part of stress steroid regimen given pneumonia. Given 10/19/2023 5:03 PM YARDAGE CONTROL OPERATOR 25 mg predniSONE tablet 30 mg (DELTASONE) 30 mg, oral, Daily, First dose on Merry 10/23/23 at 0900, For 2 doses Given 10/24/2023 8:31 AM YARDAGE CONTROL OPERATOR 30 mg Given 10/23/2023 8:17 AM YARDAGE CONTROL OPERATOR 30 mg predniSONE tablet 40 mg (DELTASONE) 40 mg, oral, Daily, First dose on Fri10/20/23 at 0900, For 3 doses, Stress steroid regimen. Given 10/22/2023 8:2 3 AM YARDAGE CONTROL OPERATOR 40 mg Given 10/21/2023 8:40 AM YARDAGE CONTROL OPERATOR 40 mg Given 10/20/2023 8:10 AM YARDAGE CONTROL OPERATOR 40 mg zinc sulfate capsule 220 mg (ZINCATE) 220 mg, oral, Daily with breakfast, First dose on 10/19/23 at 0800, Doses listed in zinc sulfate. Each 220 mg of zinc sulfate contains 50 mg of elemental zinc. Given 10/27/2023 8:07 AM YARDAGE CONTROL OPERATOR 220 mg Given 10/26/2023 9:04 AM YARDAGE CONTROL OPERATOR 220 mg Given 10/25/2023 8:51 AM YARDAGE CONTROL OPERATOR 220 mg documented in this encounter Active and Recently Administered Medications Times are shown in YARDAGE CONTROL OPERATOR. Scheduled Medication Order 10/25/2023 10/26/2023 10/27/2023 acetaminophen tablet 1,000 mg (TYLENOL) 1,000 mg, oral, 3 times daily, First dose on 10/19/23 at 0900 0850 (Given - Provider: Romina Corcoran R.N.)1300 (Given - Provider: Romina Corcoran R.N.)2001 (Given - Provider: Jessica Bui R.N.) 0904 (Given - Provider: Romina Corcoran R.N.)1337 (Given - Provider: Romina Corcoran R.N.)2020 (Given - Provider: Catarina Downs RRobertoNRoberto) 0807 (Given - Provider: Margaret Ling R.N.)1400 (Due) amoxicillin-pot clavulanate 875-125 mg per tablet [...] daily, First dose on Fri10/19/23 at 0900 0852 (Given - Provider: Romina Corcoran R.N.)1300 (Given - Provider: Romina Corcoran R.N.)2001 (Given - Provider: Jessica Bui R.N.) 0905 (Given - Provider: Romina Corcoran R.N.)1337 (Given - Provider: Romina Corcoran R.N.)2020 (Given - Provider: Catarina Downs RRobertoNRoberto) 0807 (Given - Provider: Margaret Ling R.N.)1400 (Due) ipratropium 0.02 % nebulizer solution 500 mcg (ATROVENT) 500 mcg (0.5 mg), nebulization, 3 times daily (RT), First dose (after last modification) on Fri10/21/23 at 1300 0623 (Given - Provider: Catarina Downs RRobertoN.)1300 (Given - Provider: Romina Corcoran R.N.)1817 (Given [...] if needed. 0850 (Given - Provider: Romina Cocroran R.N.) 0904 (Given - Provider: Romina Corcoran [...] R.N.)2020 (Given - Provider: Catarina Downs R.N.) 08 (Given - Provider: Margaret Ling R.N.) pantoprazole DR tablet 40 mg (PROTONIX) 40 mg, oral, 2 times daily before breakfast and dinner, First dose on 10/19/23 at 0700, pantoprazole 40 mg oral twice daily was interchanged for omeprazole 20 or 40 mg oral twice daily Swallow whole. Do NOT crush, chew, or split tablet. 0623 (Given - Provider: Catarina Downs R.N.)1610 (Given - Provider: Romina Corcoran R.N.) 0636 (Given - Provider: Zoie Butler R.N.)1608 (Given - Provider: Romina Corcoran R.N.) 0615 (Given - Provider: Catarina Downs RRobertoN.) pediatric zkcuowzzecvj-zihm-uqjek als chewable tablet 1 tablet (FLINTSTONES COMPLETE) [...] PRN, constipation, Starting on Fri10/19/23 at 0212 0905 (Given - Provider: Romina Corcoran R.N.) carboxymethylcellulose 0.5 % ophthalmic solution 1 drop (REFRESH PLUS) 1 drop, both eyes, 3 times daily PRN, dry eyes, Starting on 10/25/23 at 1121 1613 (Given - Provider: Romina Corcoran R.N.) loperamide capsule 2 mg (IMODIUM A-D) 2 [...] Corcoran R.N.)2002 (Given - Provider: Jessica Bui RRobertoNRoberto) 0636 (Given - Provider: Zoie Butler RRobertoN.)1340 (Given - Provider: Romina Corcoran R.N.)2020 (Given - Provider: Catarina Downs RRobertoNRoberto) 0104 (Given - Provider: Zoie Butler RRobertoNRoberto)1153 (Given - Provider: Margaret Ling RRobertoNRoberto) Linked Groups Order Group 1: predniSONE tablet [...] doses documented in this encounter Care Teams Pilot Boat Captain Relationship Specialty Start Date End Date Osiris Otero APRN, C.N.P., R.N. [address] [place] [address] PCP - General Family Medicine 09/17/23 12/08/23 documented as of this encounter
--- OUTSIDE RECORDS SUMMARY | 2024-01-30 12:52 | XMS_ITS | Clinical Summary ---
Author Name Unknown Organization [facility] Address [place], [place] [address] Care Team Providers Care Head Of Partner Development Name Role Phone Kallie Tamayo NP Unavailable [phone] [facility] [place] Unavailable [phone] Flo Mckeon MD Primary Care Provider [phone] Allergies No known active allergies Medications Medication [...] 1 - PCV) 012 COVID-19 vaccine series (2022-24 season) 3 Influenza for age 65+ 06/13/2024 Care Teams Head Of Partner Development Relationship Specialty Start Date End Date Flo Mckeon MD [address] [place] [phone] PCP - General Family Practice 10/04/21 Kallie Tamayo NP [address] [phone] Family Practice 01/17/14 [facility] [place] [address] [address] 01/29/14
--- OUTSIDE RECORDS SUMMARY | 2024-01-30 12:52 | XMS_ITS | Continuity of Care Document ---
Author Name Unknown Organization [facility] Address [address] [place] [address] Phone Care Team Providers Care Railroad Car Painter Name Role Phone Susan Guerrero Unavailable Unavail [...] Available - Active Procedures Procedure Date Office/Outpatient Visit,[facility] 2013 Advance Directives Directive Yes / No Effective Date File Name No Information Encounters Encounter Description Practice Location Reason(s) For Visit Diagnoses Date Provider Providers Copied on Encounter [facility], [address], [place], [place], [id number], [place] tel:[phone] [facility] No Information 6 Pandiscio Susan. [facility], [address] [place] [address], [address], [place], [place], [id number], [place]. tel:[phone] Office/Outpat ient Visit,[facility], [address], [place], [address], [place] tel:[phone] [facility] No Information 4 Pandiscio Susan. [facility], [address], [address], [place], [place], [id number], [place]. tel:[phone] Referring Provider: Freida Doe, [place] [address] [place], [address]. tel:[phone] Family History Family Member Type Diagnosis Age [...]
--- OUTSIDE RECORDS SUMMARY | 2024-01-30 12:52 | XMS_ITS | Clinical Summary ---
Author Name Unknown Organization Replaced by [facility] Address [address] [address] Care Team Providers Care Fraud Representative Name Role Phone Flo Mckeon MD Primary Care Provider + [phone] Source Comments You are receiving this document [...] for each transition of care or referral. [facility] Medications Medication Sig Dispensed Refills Start Date End Date Status acetaminophen (TYLENOL ARTHRITIS) 650 MG controlled release tablet as needed Active furosemide (LASIX) 20 MG tablet Daily 06/11/2021 Active diphenhydrAMINE-APAP 25-500 MG tablet Bedtime as needed A ctive predniSONE (DELTASONE) 5 MG tablet 10 mg daily. 06/11/2021 Active aspirin EC 81 MG enteric coated tablet Daily Act job pseudoephedrine (ERLCLAI78YPSO) 120 MG 12 hour release tablet Daily [...] Negative (Non Reactive) 06/28/2021 7:52 PM CDT [facility] Comment:Antibodies to HCV no t detected. Does not exclude the possiblity of exposure to HCV. Blood Venipuncture / Unknown 06/28/2021 2:27 PM CDT 06/28/2021 2:28 PM CDT Lorenza Q Black DO LAB_1 [facility] [address] [place], [place] [id number] [place] [address] from Last 3 Months or Most Recently Relevant to Health Maintenance Care Teams Fraud Representative Relationship Specialty Start Date End Date Flo Mckeon MD [address] [place] [address] PCP - General 06/21/21
--- OUTSIDE RECORDS SUMMARY | 2024-01-30 12:52 | XMS_ITS | Encounter Summary ---
Author Name Unknown Organization [facility] Address [address] [place] [address] Care Team Providers Care Cascade Operator Name Role Phone Osiris Otero APRN, C.N.P., R.N. Primary Care Provider Encounter Details Date Type Department Care Team (Late st Contact Info) Description 10/17/2023 Orders Only Senior Services in [place] [address] [place] [phone] Osiris Otero APRN, C.N.P., R.N. [address] [place] [phone] Social History Tobacco Use Types Packs/Day Years Used Date Smoking Tobacco: Never Smokeless Tobacco: Never Alcohol Use Standard Drinks/Week Comments Defer 0 (1 standard drink = 0.6 oz pur e alcohol) [facility] Utilities Answer Date Recorded In the past 12 months has [facility] CX, gas, oil, or water [employer] threatened to shut off services in your [...] your living situation today? I have a [facility] place to live 10/19/2023 Sex and Gender [...] 10/18/2023 10/18/2023 10/18/2023 9 :11 PM MANAGER MEDICAL documented as of this encounter Care Teams Cascade Operator Relationship Specialty Start Date End Date Osiris Otero APRN, C.N.P., R.N. [address] [place] [address] PCP - General Family Medicine 09/17/23 12/08/23 documented as of this encounter
--- OUTSIDE RECORDS SUMMARY | 2024-01-30 12:52 | XMS_ITS | Encounter Summary ---
Author Name Unknown Organization [facility] Address [address] [place] [address] Care Team Providers Care Noc Technician Name Role Phone Osiris Otero APRN C.N.P., R.N. Primary Care Provider Encounter Details Date Type Department Care Team (Latest Contact Info) Description 10/21/2023 1:41 AM TRUCKER - 10/21/2023 11:59 PM [facility] Hospital Encounter Department of Laboratory Medicine in [place], [place] [address] [place] [address] Osiris Otero APRN, C.N.P., R.N. [address] [place] [phone] Edema Localized Discharge Disposition: Home or Self Care Social History Tobacco Use Types Packs/Day Years Used Date Smoking Tobacco: Never Smokeless Tobacco: Never Alcohol Use Standard Drinks/Week Comments Defer 0 (1 standard drink = 0.6 oz pur e alcohol) [facility] Utilities Answer Date Recorded In the past [...] your living situation today? I [facility] a [facility] place to live 10/19/2023 Sex and [...] day as needed for cough. 10/14/2023 11/28/2023 furosemide (LASIX) 40 mg tablet 60 mg in the morning and 40 mg at noon 10/14/2023 10/27/2023 ipratropium-albuteroL (DUONEB) 0.5-2.5 mg/3 mL nebulizer solution Inhale 3 mL by nebulization 4 (four) times a day for 5 days. 10/14/2023 10/27/2023 loperamide (IMODIUM A-D) 2 mg [...] (at least 4 hours apart) 42 tablet 10/17/2023 10/27/2023 oxyCODONE (ROXICODONE) 5 mg immediate release tabletIndications:Chr onic Pain/Nonacute Pain Indication: Chronic Pain/Nonacute Pain. 5 mg four times daily as needed (at least 4 hours apart) 42 tablet 10/27/2023 10/31/2023 potassium chloride (KLOR-CON M/KDUR) 20 mEq ER tablet Take 1 tablet (20 mEq total) by mouth 3 (three) times a day with meals. 10/14/2023 11/28/2023 predniSONE (DELTASONE) 10 mg tablet Take 10 mg by mouth daily. 09/18/2023 10/22/2023 VITAMIN C, ASCORBATE CALCIUM, ORAL Take 1,000 mg by mouth daily. 09/18/2023 10/27/2023 documented as of this encounter Plan of Treatment Not on file documented as of this encounter Visit Diagnoses Diagnosis Edema Localized documented in this encounter Care Teams Noc Technician Relationship Specialty Start Date End Date Osiris Otero APRN, C.N.P., R.N. [address] [place] [address] PCP - General Family Medicine 09/17/23 12/08/23 documented as of this encounter
--- OUTSIDE RECORDS SUMMARY | 2024-01-30 12:52 | XMS_ITS | Encounter Summary ---
Author Name Unknown Organization [facility] Address [address] [place] [address] Care Team Providers Care Distribution Analyst Name Role Phone ShannaFransisca lopezOsirisdilcia Doe APRN, C.N.P., R.N. Primary Care Provider Encounter Details Date Type Department Care Team (Late st Contact Info) Description 10/13/2023 Clinical Communication Senior Services in [place] [address] [place] [address] Leatha Palacios APRN, C.N.P. [address] [place] [address] Social History Tobacco Use Types Packs/Day Years Used Date Smoking Tobacco: Never Smokeless Tobacco: Never Alcohol Use Standard Drinks/Week Comments Defer 0 (1 standard drink = 0.6 oz pur e alcohol) [facility] Utilities Answer Date Recorded In the past 12 months has [facility], gas, oil, or water [employer] threatened to shut off services in your [...] your living situation today? I have a [facility] place to live 10/19/2023 Sex and Gender Information Value Date Recorded Sex Assigned at Not on file Gender Identity Not on file Sexual Orientation Not on file documented as of this encounter Miscellaneous Notes * Telephone Encounter - Leatha Palacios APRN, C.N.P. - 10/13/2023 1:54 PM CST retirement called with report that patient is coughing [...] doses. provider to re eval tomorrow. Call manager employee relations provider if condition changes. CT SERVICE PROVIDER documented in this encounter Plan of Treatment Not on file documented as of this encounter Visit Diagnoses Not on filedocumented in this encounter Additional Health Concerns Infection Onset Date Last Indicated Resolved Time COVID19 Pending 10/18/2023 10/18/2023 10/18/2023 9 :11 PM DIRECT SERVICE PROVIDER documented as of this encounter Care Teams Distribution Analyst Relationship Specialty Start Date End Date Osiris Otero APRN, C.N.P., R.N. [address] [place] [address] PCP - General Family Medicine 09/17/23 12/08/23 documented as of this encounter
--- OUTSIDE RECORDS SUMMARY | 2024-01-30 12:52 | XMS_ITS | Encounter Summary ---
Author Name Unknown Organization [facility] Address [address] [place] [address] Care Team Providers Care Cable Splicer Helper Name Role Phone Osiris Otero APRN, C.N.P., R.N. Primary Care Provider Reason for Visit * Reason Onset Date Comments Med Question 10/16/2023 Clarification ox ycodone Encounter Details Date Type Department Care Team (Latest Contact Info) Description 10/16/2023 Clinical Communication Senior Services in [place] [address] [place] [address] Osiris Otero APRN, C.N.P., R.N. [address] [place] [address] Med Question (Clarification oxycodone) Social History Tobacco Use Types Packs/Day Years Used Date Smoking Tobacco: Never Smokeless Tobacco: Never Alcohol Use Standard Drinks/Week Comments Defer 0 (1 standard drink = 0.6 oz pur e alcohol) [facility] Utilities Answer Date Recorded In [...] your living situation today? I have a [facility] place to live 10/19/2023 Sex and Gender Information Value Date Recorded Sex Assigned at Not on file Gender Identity Not on file Sexual Orientation Not on file documented as of this encounter Miscellaneous Notes * Telephone Encounter - Osiris Otero APRN, C.N.P., R.N. - 10/17/2023 11:39 AM CST Sent new script for 5 mg four times daily prn COORDINATOR * Telephone Encounter - Haven Saxena R.N. - 10/16/2023 12:49 PM FIRE COORDINATOR Called Elvi, she stated that on Rx instructions they do no have dose amount (5mg vs 10mg?, etc.) melonie given four times a day as needed. Please review and update COORDINATOR * Telephone Encounter - Shital Parish - 10/16/2023 12:22 PM CST MEDICATION QUESTION What is the patient's question? Recent changes Medication name/dose: oxyCODONE (ROXICODONE) 5 mg immediate release table What pharmacy are you using today? [facility] [address] [address] Additional comments (if any): Elvi from pharmacy is needing a clarification on the medication. Callback [phone] Special calling instructions: Ok to leave detailed message on voicemail? yes Portal: N/A COORDINATOR documented in this encounter Plan of Treatment Not on file documented as of this encounter Visit Diagnoses Not on filedocumented in this encounter Additional Health Concerns Infection Onset Date Last Indicated Resolved Time COVID19 Pending 10/18/2023 10/18/2023 10/18/2023 9 :11 PM FIRE COORDINATOR documented as of this encounter Care Teams Cable Splicer Helper Relationship Specialty Start Date End Date Osiris Otero APRN, C.N.P., R.N. [address] [place] [address] PCP - General Family Medicine 09/17/23 12/08/23 documented as of this encounter
== END 2024-01-30 12:50 | disposition home or self-care (01) ==
LOC: WOUND 12:49
PROVIDERS: PCP Family Medicine; Visit Provider Nurse Practitioner Family
DX: L89.314 Pressure ulcer of right buttock, stage 4 (principal); L89.153 Pressure ulcer of sacral region, stage 3; G82.20 Paraplegia, unspecified; Z99.3 Dependence on wheelchair
CPT/HCPCS: 11042; 97597; 97605

== ENCOUNTER 2024-02-06 08:17 | Outpatient (CLI) | payer MEDICARE, SELFPAY ==
--- OUTSIDE RECORDS SUMMARY | 2024-02-06 08:18 | XMS_ITS | Clinical Summary ---
Author Name Unknown Organization [facility] Address [address] [place] [address] Care Team Providers Care Car Lot Attendant Name Role Phone Elsewhere, Pcp Primary Care Provider Unavailabl e Source Comments Patient records contain information from all sites at [facility]. For routine questions regarding patient records, call [phone] during business hours, M-F 8:00 AM - 5:00 PM Central Time. Record requests for emergency care only can be directed to [phone] at any time.[facility] Allergies Active Allergy Reactions Criticality Noted Date [...] Department of Physical Medicine and Rehabilitation in [place], [place] [address] [place] [phone] Charlotte Craig, [facility]-HEAT TREATING FURNACE TENDER 12/01/2023 Clinical Communication Department of Pulmonary Medicine in [place], [place] [address] [place] [address] Mercy Poe P.A.-C. 11/28/2023 4:00 PM SUPPLY CHAIN ASSISTANT External Outreach Senior Services in [address] [phone] Osiris Otero APRN, C.N.P., R.N. Chronic Diastolic [...] Disorder 11/28/2023 Clinical Communication Senior Services in [address] [phone] Haven Saxena, RRobertoN. 11/26/2023 Documentation Senior Services in [address] [phone] Osiris Otero APRN, C.N.P., R.N. 11/25/2023 Clinical Communication Senior Services in [address] [phone] Osiris Otero APRN, C.N.P., R.N. 11/10/2023 Orders Only Senior Services in [address] [phone] Osiris Otero APRN, C.N.P., R.N. Neurogenic Bladder (Primary Dx) 11/07/2023 9:00 AM SUPPLY CHAIN ASSISTANT External Outreach Senior Services in [address] [phone] Fernando Renee M.D. 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 I have a [facility] place to live 10/19/2023 Sex and Gender Information Value Date Recorded Sex Assigned at Not on file Gender Identity Not on file Sexual Orientation Not on file Last Filed Vital Signs Vital Sign Reading Time Taken Comments Blood Pressure 110/68 11/28/2023 8:43 AM SUPPLY CHAIN ASSISTANT Pulse 76 11/28/2023 8:43 AM SUPPLY CHAIN ASSISTANT Temperature 36.7 ??C (98 ??F) 11/28/2023 8:43 AM SUPPLY CHAIN ASSISTANT Respiratory Rate 18 11/28/2023 8:43 AM SUPPLY CHAIN ASSISTANT Oxygen Saturation 95% 11/28/2023 8:43 AM SUPPLY CHAIN ASSISTANT RA Inhaled Oxygen Concentration - - Weight 58.8 kg (129 lb 9.6 oz) 11/28/2023 8:43 A M SUPPLY CHAIN ASSISTANT Height 152 cm (4' 11.84) 10/19/2023 5:00 AM SUPPLY CHAIN ASSISTANT Body Mass Index 25.44 10/19/2023 5:00 AM SUPPLY CHAIN ASSISTANT Plan of Treatment Health Maintenance Due Date [...] METABOLIC PANEL, S/P Routine 11/04/2023 6:52 AM SUPPLY CHAIN ASSISTANT Hypokalemia from Last 3 Months or Most Recently Relevant to Health Maintenance Results * (ABNORMAL) EXT Home SARS Coronavirus-2 (COVID-19) Antigen (11/13/2023) EXT Home SARS-CoV-2 Antigen Presumptive Positive(A) Presumptive Negative OTHER (SPECIFY IN PHOTOGRAPHIC PROCESSOR) Swab 11/13/2023 Historical Provider LAB MICROBIOLOGY - G ENERAL ORDERABLES OTHER (SPECIFY IN PHOTOGRAPHIC PROCESSOR) N/A * (ABNORMAL) Basic Metabolic Panel (11/04/2023 6:52 AM SUPPLY CHAIN ASSISTANT) Potassium, P 4.1 3.6 - 5.2 mmol/L 11/04/2023 8:14 AM SUPPLY CHAIN ASSISTANT NPRG Sodium, P 142 135 - 145 mmol/L 11/04/2023 8:14 AM SUPPLY CHAIN ASSISTANT NPRG Chloride, P 102 98 - 107 mmol/L 11/04/2023 8:14 AM SUPPLY CHAIN ASSISTANT NPRG Bicarbonate, P 30(H) 22 - 29 mmol/L 11/04/2023 8:14 AM SUPPLY CHAIN ASSISTANT NPRG Anion Gap, P 10 7 - 15 11/04/2023 8:14 AM SUPPLY CHAIN ASSISTANT NPRG BUN (Blood Urea Nitrogen), P 21 6 - 21 mg/dL 11/04/2023 8:14 AM SUPPLY CHAIN ASSISTANT NPRG Creatinine 0.28(L) 0.59 - 1.04 mg/dL 11/04/2023 8:14 AM SUPPLY CHAIN ASSISTANT NPRG Estimated GFR (eGFR) >90 >=60 mL/min/BSA 11/04/2023 8:14 AM SUPPLY CHAIN ASSISTANT NPRG Comment: Estimated GFR calculated using the 2020 CKD_EPI creatinine equation. Calcium, Total, P 9.1 8.8 - 10.2 mg/dL 11/04/2023 8:14 AM SUPPLY CHAIN ASSISTANT NPRG Glucose, P 79 70 - 140 mg/dL 11/04/2023 8:14 AM SUPPLY CHAIN ASSISTANT NPRG Blood (Blood, Venous) 11/04/2023 6:52 AM SUPPLY CHAIN ASSISTANT 11/04/2023 7:43 AM SUPPLY CHAIN ASSISTANT Osiris Otero APRN, C.N.P., R.N. LAB B LOOD ADD-ON FORMERLY NAMED [facility] [address] [place] [address], [facility] NPRG [facility] [address] [place] [address] from Last 3 Months or Most Recently Relevant to Health Maintenance Advance Directives For more information, please contact: [phone] Documents on File Type Date Recorded Patient Pigment Weigher Expl anation Advance Directives 09/19/2023 4:06 PM POLS T/MOLST * DNR/DNI (Latest Code Status on File) Date Activated Date Inactivated Comments 10/19/2023 6:50 PM 10/27/2023 4:16 PM * Full Code Date Activated Date Inactivated Comments 10/19/2023 2:13 AM 10/19/2023 6:50 PM Question Answer Comments Full Code: Discussed Care Teams Car Lot Attendant Relationship Specialty Start Date End Date Elsewhere, Pcp PCP - General Internal Medicine 12/09/23
--- OUTSIDE RECORDS SUMMARY | 2024-02-06 08:19 | XMS_ITS | Encounter Summary ---
Author Name Unknown Organization [facility] Address [address] [place] [address] Care Team Providers Care Auto Hauler Name Role Phone Osiris Otero APRN, C.N.P., R.N. Primary Care Provider Encounter Details Date Type Department Care Team (Late st Contact Info) Description 10/17/2023 Orders Only Senior Services in [place] [address] [place] [phone] Osiris Otero APRN, C.N.P., R.N. [address] [place] [phone] Social History Tobacco Use Types Packs/Day Years Used Date Smoking Tobacco: Never Smokeless Tobacco: Never Alcohol Use Standard Drinks/Week Comments Defer 0 (1 standard drink = 0.6 oz pur e alcohol) [facility] Utilities Answer Date Recorded In the past 12 months has [employer], gas, oil, or water [employer] threatened to shut off services in your [...] your living situation today? I have a [facility] place to live 10/19/2023 Sex [...] Pending 10/18/2023 10/18/2023 10/18/2023 9 :11 PM LIGHTING DIRECTOR documented as of this encounter Care Teams Auto Hauler Relationship Specialty Start Date End Date Osiris Otero APRN, C.N.P., R.N. [address] [place] [address] PCP - General Family Medicine 09/17/23 12/08/23 documented as of this encounter
--- OUTSIDE RECORDS SUMMARY | 2024-02-06 08:19 | XMS_ITS | Encounter Summary ---
Author Name Unknown Organization [facility] Address [address] [place] [address] Care Team Providers Care Managed Care Analyst Name Role Phone Osiris Otero APRN, C.N.PRoberto, R.N. Primary Care Provider Reason for Referral * Outpatient (Routine) - Authorized Specialty Diagnoses / Procedures Referred By Paresh t Referred To Contact Pulmonary Medicine Diagnoses Orthopnea Osiris Otero APRN, C.N.P., R.N. [address] [place] [address] [facility] Referral ID Status Reason Start Date Expiration Date Visits Requested Visits Authorized [id number] Authorized Specialty Services Required 10/31/2023 05/01/2025 1 1 R MAKE UP CLERK Encounter Details Date Type Department Care Team (Latest Contact Info) Description 10/31/2023 10:00 AM ORDER MAKE UP CLERK External Outreach Senior Services in [place] [address] [place] [address] Osiris Otero APRN, C.N.P., R.N. [address] [place] [phone] Orthopnea (Primary Dx); Pressure Injury (Ulcer) Of [...] Resonance Disorder; Obstructive Sleep Apnea Adult; Paraplegia ([facility]) Social History Tobacco Use Types Packs/Day Years Used Date Smoking Tobacco: Never Smokeless Tobacco: Never Tobacco Cessation:Counseling Given: Not Answered Alcohol Use Standard Drinks/Week Comments Defer 0 (1 standard drink = 0.6 oz pur e alcohol) [facility] Utilities Answer Date Recorded In the past 12 months has [employer], gas, oil, or water [employer] threatened to shut off services in your [...] your living situation today? I have a [facility] place to live 10/19/2023 Sex and Gender Information Value Date Recorded Sex Assigned at Not on file Gender Identity Not on file Sexual Orientation Not on file documented as of this encounter Last Filed Vital Signs Vital Sign Reading Time Taken Comments Blood Pressure 110/62 10/31/2023 9:01 AM ORDER MAKE UP CLERK Pulse 98 10/31/2023 9:01 AM ORDER MAKE UP CLERK Temperature 36.3 ??C (97.4 ??F) 10/31/2023 9:01 AM CS T Respiratory Rate 18 10/31/2023 9:01 AM ORDER MAKE UP CLERK Oxygen Saturation 95% 10/31/2023 9:01 AM ORDER MAKE UP CLERK Inhaled Oxygen Concentration - - Weight 61.2 kg (135 lb) 10/31/2023 9:01 AM ORDER MAKE UP CLERK Height - - Body Mass Index 26.5 10/19/2023 5:00 AM ORDER MAKE UP CLERK documented in this encounter Progress Notes * Sol Mills L.P.N. - 10/31/2023 10:00 AM CST SNF VISIT for Post Hospital Follow up Visit This resident was recently hospitalized at: [facility] Date of hospitalization: DATE OF [...] wound. Wounds/L/D/A: None SNF Nurse concerns: unknown R MAKE UP CLERK * Osiris Otero APRN, ElizabethN.P., R.N. - 10/31/2023 10:00 AM CST CHIEF COMPLAINT / REASON FOR VISIT The resident is being seen at [place], [place] for Post hospitalization Follow up Visit Type: In Person Face-to- Face visit SUBJECTIVE HISTORY OF PRESENT ILLNESS Obtained from Patient, Nursing, and SBAR: SNF VISIT for Post Hospital Follow up Visit This resident was recently hospitalized at: [facility] Date of hospitalization: DATE OF ADMISSION: 10/19/2023 DATE OF DISCHARGE: 10/22/2023 Reason for hospitalization: Acute Respiratory Failure With Hypoxia Prior to hospitalization patient did receive levofloxacin for 5 days. On 10/18/2023 she developed fever, cough, shortness of breath hypoxia. She was transferred to [place]. Her MRSA swab returned positive, Infectious Disease [...] off her oxygen. She discharged back to halfway facility. She did have intermittent episodes of hypoxia where she would go down to 82% especially if on her left side. She would rebound back to 95% in about 15-30 seconds. Patient was previously hospitalized at [facility] from 08/28/2023 through 09/17/2023, she has [...] obstructive sleep apnea. [facility]. 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 Obstructive Sleep Apnea Adult 18. 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 Takes gabapentin three times per day #6 Anemia CBC next week #7 Arthritis Rheumatoid ([facility]) Prednisone 10 mg daily (was stress dosed and is back to 10 mg daily) #8 Atrial Fibrillation Unspecified ([facility]) History of, not on anticoagulation, does take metoprolol #9 Diarrhea Scheduled loperamide and has daily probiotic #10 Edema Localized Furosemide 40 mg daily and potassium 20 mEq three times a day ([facility] on 11/04) #11 Hypertension Essential Primary Metoprolol (discharged on tartrate and succinate). 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 Total time 40 minutes. R MAKE UP CLERK documented in this encounter Miscellaneous Notes * Addendum Note - Hermes Edouard R.N. - 10/31/2023 10:00 AM CSTAddended by: HERMES EDOUARD on: 11/05/2023 12:30 PM Modules accepted: Orders R MAKE UP CLERK documented in this encounter Plan of [...] (HCC) documented in this encounter Care Teams Managed Care Analyst Relationship Specialty Start Date End Date Osiris Otero APRN, C.N.P., R.N. [address] [place] [phone] PCP - General Family Medicine 09/17/23 12/08/23 documented as of this encounter
--- OUTSIDE RECORDS SUMMARY | 2024-02-06 08:19 | XMS_ITS | Encounter Summary ---
Author Name Unknown Organization [facility] Address [address] [place] [address] Care Team Providers Care Mill Helper Name Role Phone Elsewhere, Pcp Primary Care Provider Unavailabl e Encounter Details Date Type Department Care Team (Late st Contact Info) Description 12/01/2023 Clinical Communication Department of Pulmonary Medicine in [address] [phone] Mercy Poe P.A.-C. [address] [place] [phone] Social History Tobacco Use Types Packs/Day Years Used Date Smoking Tobacco: Never Smokeless Tobacco: Never Alcohol Use Standard Drinks/Week Comments Defer 0 (1 standard drink = 0.6 oz pur e alcohol) [facility] Utilities Answer Date Recorded In the past 12 months has [facility] [employer], gas, oil, or water [employer] threatened to shut off services in your [...] Time COVID19 11/13/2023 11/13/2023 12/03/2023 5:55 AM YARD JACKER documented as of this encounter Care Teams Mill Helper Relationship Specialty Start Date End Date Elsewhere, Pcp PCP - General Internal Medicine 12/09/23 documented as of this encounter
--- OUTSIDE RECORDS SUMMARY | 2024-02-06 08:19 | XMS_ITS | Encounter Summary ---
Author Name Unknown Organization [facility] Address [address] [place] [address] Care Team Providers Care Front Maker Lockstitch Name Role Phone Osiris Otero APRN, C.N.P., R.N. Primary Care Provider Reason for Visit * Reason Onset Date Comments Med Question 10/16/2023 Clarification ox ycodone Encounter Details Date Type Department Care Team (Latest Contact Info) Description 10/16/2023 Clinical Communication Senior Services in [place] [address] [place] [address] Osiris Otero APRN, C.N.P., R.N. [address] [place] [phone] Med Question (Clarification oxycodone) Social History Tobacco Use Types Packs/Day Years Used Date Smoking Tobacco: Never Smokeless Tobacco: Never Alcohol Use Standard Drinks/Week Comments Defer 0 (1 standard drink = 0.6 oz pur e alcohol) [facility] Utilities Answer Date Recorded In the [...] living situation today? I have a [facility] place to live 10/19/2023 Sex and Gender Information Value Date Recorded Sex Assigned at Not on file Gender Identity Not on file Sexual Orientation Not on file documented as of this encounter Miscellaneous Notes * Telephone Encounter - Osiris Otero APRN, C.N.P., R.N. - 10/17/2023 11:39 AM CST Sent new script for 5 mg four times daily prn REEL CAMERAMAN * Telephone Encounter - Haven Saxena R.N. - 10/16/2023 12:49 PM NEWS REEL CAMERAMAN Called Elvi, she stated that on Rx instructions they do no have dose amount (5mg vs 10mg?, etc.) melonie given four times a day as needed. Please review and update REEL CAMERAMAN * Telephone Encounter - Shital Parish - 10/16/2023 12:22 PM CST MEDICATION QUESTION What is the patient's question? Recent changes Medication name/dose: oxyCODONE (ROXICODONE) 5 mg immediate release table What pharmacy are you using today? [facility] [address] [address] Additional comments (if any): Elvi from pharmacy is needing a clarification on the medication. Callback [phone] Special calling instructions: Ok to leave detailed message on voicemail? yes Portal: N/A REEL CAMERAMAN documented in this encounter Plan of Treatment Not on file documented as of this encounter Visit Diagnoses Not on filedocumented in this encounter Additional Health Concerns Infection Onset Date Last Indicated Resolved Time COVID19 Pending 10/18/2023 10/18/2023 10/18/2023 9 :11 PM NEWS REEL CAMERAMAN documented as of this encounter Care Teams Front Maker Lockstitch Relationship Specialty Start Date End Date Osiris Otero APRN, C.N.P., R.N. [address] [place] [phone] PCP - General Family Medicine 09/17/23 12/08/23 documented as of this encounter
--- OUTSIDE RECORDS SUMMARY | 2024-02-06 08:19 | XMS_ITS | Encounter Summary ---
Author Name Unknown Organization [facility] Address [address] [place] [address] Care Team Providers Care Concrete Carpenter Name Role Phone Osiris Otero APRN, C.N.P., R.N. Primary Care Provider Encounter Details Date Type Department Care Team (Late st Contact Info) Description 11/26/2023 Documentation Senior Services in [place] [address] [place] [phone] Osiris Otero APRN, C.N.P., R.N. [address] [place] [phone] Social History Tobacco Use Types Packs/Day Years Used Date Smoking Tobacco: Never Smokeless Tobacco: Never Alcohol Use Standard Drinks/Week Comments Defer 0 (1 standard drink = 0.6 oz pur e alcohol) [facility] Utilities Answer Date Recorded In the past 12 months has [employer], gas, oil, or water [employer] threatened to shut off services in your [...] Encounter created to enter external lab results. ING PRESS OPERATOR documented in this encounter Plan of Treatment Not on file documented as of this encounter Procedures Procedure Name Priority Date/Time Associated Diagnosis Comments EXTM HOME SARS CORONAVIRUS-2 (COVID-19) ANTIGEN, V Routine 11/13/2023 documented in this encounter Results * (ABNORMAL) EXT Home SARS Coronavirus-2 (COVID-19) Antigen (11/13/2023) EXT Home SARS-CoV-2 Antigen Presumptive Positive(A) Presumptive Negative OTHER (SPECIFY IN LAWYER PROBATE) Swab 11/13/2023 Historical Provider LAB MICROBIOLOGY - G ENERAL ORDERABLES OTHER (SPECIFY IN LAWYER PROBATE) N/A documented in this encounter Visit Diagnoses Not on filedocumented in this encounter Additional Health Concerns Infection Onset Date Last Indicated Resolved Time COVID19 11/13/2023 11/13/2023 12/03/2023 5:55 AM BUSHING PRESS OPERATOR documented as of this encounter Care Teams Concrete Carpenter Relationship Specialty Start Date End Date Osiris Otero APRN, C.N.P., R.N. [address] [place] [phone] PCP - General Family Medicine 09/17/23 12/08/23 documented as of this encounter
--- OUTSIDE RECORDS SUMMARY | 2024-02-06 08:19 | XMS_ITS | Clinical Summary ---
Author Name Unknown Organization [facility] Address [place], [place] [address] Care Team Providers Care Hospice Patient Care Secretary Name Role Phone Kallie Tamayo NP Unavailable [phone] [facility] [place] Unavailable [phone] Flo Mckeon MD Primary Care Provider [phone] Allergies No known active allergies Medications Medication [...] Influenza for age 65+ 06/13/2024 Care Teams Hospice Patient Care Secretary Relationship Specialty Start Date End Date Flo Mckeon MD [address] [place] [phone] PCP - General Family Practice 10/04/21 Kallie Tamayo NP [address] [phone] Family Practice 01/17/14 [facility] [place] [address] [address] 01/29/14
--- OUTSIDE RECORDS SUMMARY | 2024-02-06 08:19 | XMS_ITS ---
Author Name Unknown Organization [facility] Address [address] [place] [address] Care Team Providers Care Supervisor Inventory Merchandising Name Role Phone Unavailable Unavailable Unavailable Surgery Details Not on file Complications Check Surgery Details section. Procedure Estimated Blood Loss Check Surgery Details section. Procedure Findings Check Surgery Details section. Procedure Specimens Taken Check Surgery Details section.
--- OUTSIDE RECORDS SUMMARY | 2024-02-06 08:19 | XMS_ITS | Encounter Summary ---
Author Name Unknown Organization [facility] Address [address] [place] [address] Care Team Providers Care Instructor Weaving Name Role Phone Shanna Elizabeth Murcia APRNNJuan., R.N. Primary Care Provider Encounter Details Date Type Department Care Team (Late st Contact Info) Description 12/01/2023 Orders Only Department of Physical Medicine and Rehabilitation in [place], [place] [address] [place] [phone] Charlotte Craig, [facility]-TRANSFORMER ASSEMBLER [address] [place] [address] Social History Tobacco Use Types Packs/Day Years Used Date Smoking Tobacco: Never Smokeless Tobacco: Never Alcohol Use Standard Drinks/Week Comments Defer 0 (1 standard drink = 0.6 oz pur e alcohol) [facility] Utilities Answer Date Recorded In the past 12 months has [employer], gas, oil, or water [employer] threatened to shut off services in your [...] living situation today? I have a [facility] place to live 10/19/2023 Sex and [...] Time COVID19 11/13/2023 11/13/2023 12/03/2023 5:55 AM REHABILITATION AIDE/SCHEDULER documented as of this encounter Care Teams Instructor Weaving Relationship Specialty Start Date End Date Osiris Otero APRN, C.N.P., R.N. [address] [place] [address] PCP - General Family Medicine 09/17/23 12/08/23 documented as of this encounter
--- OUTSIDE RECORDS SUMMARY | 2024-02-06 08:19 | XMS_ITS | Clinical Summary ---
Author Name Unknown Organization [facility] Address [address], [place] [address] Care Team Providers Care Office Messenger Helper Name Role Phone Flo Mckeon MD Primary Care Provider [phone] Source Comments You are receiving this document [...] for each transition of care or referral. [facility] Dec[facility] Medications Medication Sig Dispensed Refills Start Date End Date Status acetaminophen (TYLENOL ARTHRITIS) 650 MG controlled release tablet as needed Active furosemide (LASIX) 20 MG tablet Daily 06/11/2021 Active diphenhydrAMINE-APAP 25-500 MG tablet Bedtime as needed A ctive predniSONE (DELTASONE) 5 MG tablet 10 mg daily. 06/11/2021 Active aspirin EC 81 MG enteric coated tablet Daily Act job pseudoephedrine ([id number]) 120 MG 12 hour release tablet Daily [...] Negative (Non Reactive) 06/28/2021 7:52 PM CDT [facility] Comment:Antibodies to HCV no t detected. Does not exclude the possiblity of exposure to HCV. Blood Venipuncture / Unknown 06/28/2021 2:27 PM CDT 06/28/2021 2:28 PM CDT Lorenza Q Black DO LAB_1 [facility] [address] [place], [place] [phone] [place] [address] from Last 3 Months or Most Recently Relevant to Health Maintenance Care Teams Office Messenger Helper Relationship Specialty Start Date End Date Flo Mckeon MD [address] [place] [address] PCP - General 06/21/21
--- OUTSIDE RECORDS SUMMARY | 2024-02-06 08:19 | XMS_ITS | Encounter Summary ---
Author Name Unknown Organization [facility] Address [address] [place] [address] Care Team Providers Care Nurse Gynecology Name Role Phone Elsewhere, Pcp Primary Care Provider Unavailabl e Encounter Details Date Type Department Care Team (Latest Contact Info) Description 10/18/2023 Intake [facility] Social History Tobacco Use Types Packs/Day Years Used Date Smoking Tobacco: Never Smokeless Tobacco: Never Alcohol Use Standard Drinks/Week Comments Defer 0 (1 standard drink = 0.6 oz pur e alcohol) [facility] Utilities Answer Date Recorded In the past 12 months has e electric, gas, oil, or water [employer] threatened to shut off services in your [...] situation today? I have a [facility] place to live 10/19/2023 Sex [...] Pending 10/18/2023 10/18/2023 10/18/2023 9 :11 PM TOOL MACHINIST COVID19 11/13/2023 11/13/2023 12/03/2023 5:55 AM TOOL MACHINIST documented as of this encounter Care Teams Nurse Gynecology Relationship Specialty Start Date End Date Elsewhere, Pcp PCP - General Internal Medicine 12/09/23 documented as of this encounter
--- OUTSIDE RECORDS SUMMARY | 2024-02-06 08:19 | XMS_ITS | Encounter Summary ---
Author Name Unknown Organization [facility] Address [address] [place] [address] Care Team Providers Care It Communications Specialist Name Role Phone Osiris Otero APRN, C.N.P., R.N. Primary Care Provider Reason for Referral * Outpatient (Routine) - Authorized Specialty Diagnoses / Procedures Referred By Contfarideh t Referred To Contact Urology Diagnoses Neurogenic Bladder Osiris Otero APRN C.N.P., R.N. [address] [place] [address] [facility] Region Referral ID Status Reason Start Date Expiration Date V isits Requested Visits Authorized [id number] Authorized 11/10/2023 05/11/2025 1 1 F PROGRAM OFFICER Encounter Details Date Type Department Care Team (Late st Contact Info) Description 11/10/2023 Orders Only Senior Services in [place] [address] [place] [phone] Osiris Otero APRN, C.N.P., R.N. [address] [place] [address] Neurogenic Bladder (Primary Dx) Social History Tobacco Use Types Packs/Day Years Used Date Smoking Tobacco: Never Smokeless Tobacco: Never Alcohol Use Standard Drinks/Week Comments Defer 0 (1 standard drink = 0.6 oz pur e alcohol) [facility] Utilities Answer Date Recorded In the past [...] your living situation today? I have a [facility] place to live 10/19/2023 Sex and [...] Primary documented in this encounter Care Teams It Communications Specialist Relationship Specialty Start Date End Date Osiris Otero APRN, C.N.P., R.N. [address] [place] [address] PCP - General Family Medicine 09/17/23 12/08/23 documented as of this encounter
--- OUTSIDE RECORDS SUMMARY | 2024-02-06 08:19 | XMS_ITS | Encounter Summary ---
Author Name Unknown Organization [facility] Address [address] [place] [address] Care Team Providers Care Ross Furnace Operator Name Role Phone Osiris Otero APRN, C.N.P., R.N. Primary Care Provider Encounter Details Date Type Department Care Team (Late st Contact Info) Description 11/25/2023 Clinical Communication Senior Services in [place] [address] [place] [phone] Osiris Otero APRN, C.N.P., R.N. [address] [place] [phone] Social History Tobacco Use Types Packs/Day Years Used Date Smoking Tobacco: Never Smokeless Tobacco: Never Alcohol Use Standard Drinks/Week Comments Defer 0 (1 standard drink = 0.6 oz pur e alcohol) [facility] Utilities Answer Date Recorded In the past 12 months has [employer], gas, oil, or water [employer] threatened to shut off services in [...] your living situation today? I have a [facility] place to live 10/19/2023 Sex and [...] tablet Refill: 0 Please send half tablets. NICAL SALES DIRECTOR documented in this encounter Plan of Treatment Not on file documented as of this encounter Visit Diagnoses Not on filedocumented in this encounter Care Teams Ross Furnace Operator Relationship Specialty Start Date End Date Osiris tOero APRN, C.N.P., R.N. [address] [place] [address] PCP - General Family Medicine 09/17/23 12/08/23 documented as of this encounter
--- OUTSIDE RECORDS SUMMARY | 2024-02-06 08:19 | XMS_ITS | Encounter Summary ---
Author Name Unknown Organization [facility] Address [address] [place] [address] Care Team Providers Care Biology Intern Name Role Phone Osiris Otero APRN C.N.P., R.N. Primary Care Provider Encounter Details Date Type Department Care Team (Latest Contact Info) Description 11/04/2023 12:13 AM SPACE OPERATIONS OFFICER - 11/04/2023 11:59 PM [facility] Hospital Encounter Department of Laboratory Medicine in [place], [place] [address] [place] [address] Osiris Otero APRN, C.N.P., R.N. [address] [place] [phone] Hypokalemia Discharge Disposition: Home or Self Care Social History Tobacco Use Types Packs/Day Years Used Date Smoking Tobacco: Never Smokeless Tobacco: Never Alcohol Use Standard Drinks/Week Comments Defer 0 (1 standard drink = 0.6 oz pur e alcohol) [facility] Utilities Answer Date Recorded In the past 12 months has [employer], gas, oil, or water company threatened [...] your living situation today? I have a [facility] place to live 10/19/2023 Sex and [...] METABOLIC PANEL, S/P Routine 11/04/2023 6:52 AM SPACE OPERATIONS OFFICER Hypokalemia documented in this encounter Results * (ABNORMAL) Basic Metabolic Panel (11/04/2023 6:52 AM SPACE OPERATIONS OFFICER) Potassium, P 4.1 3.6 - 5.2 mmol/L 11/04/2023 8:14 AM SPACE OPERATIONS OFFICER NPRG Sodium, P 142 135 - 145 mmol/L 11/04/2023 8:14 AM SPACE OPERATIONS OFFICER NPRG Chloride, P 102 98 - 107 mmol/L 11/04/2023 8:14 AM SPACE OPERATIONS OFFICER NPRG Bicarbonate, P 30(H) 22 - 29 mmol/L 11/04/2023 8:14 AM SPACE OPERATIONS OFFICER NPRG Anion Gap, P 10 7 - 15 11/04/2023 8:14 AM SPACE OPERATIONS OFFICER NPRG BUN (Blood Urea Nitrogen), P 21 6 - 21 mg/dL 11/04/2023 8:14 AM SPACE OPERATIONS OFFICER NPRG Creatinine 0.28(L) 0.59 - 1.04 mg/dL 11/04/2023 8:14 AM SPACE OPERATIONS OFFICER NPRG Estimated GFR (eGFR) >90 >=60 mL/min/BSA 11/04/2023 8:14 AM SPACE OPERATIONS OFFICER NPRG Comment: Estimated GFR calculated using the 2020 CKD_EPI creatinine equation. Calcium, Total, P 9.1 8.8 - 10.2 mg/dL 11/04/2023 8:14 AM SPACE OPERATIONS OFFICER NPRG Glucose, P 79 70 - 140 mg/dL 11/04/2023 8:14 AM SPACE OPERATIONS OFFICER NPRG Blood (Blood, Venous) 11/04/2023 6:52 AM SPACE OPERATIONS OFFICER 11/04/2023 7:43 AM SPACE OPERATIONS OFFICER Elizabeth Wright APRNNBuck, R.N. LAB B LOOD ADD-ON [facility] [address] [place] [address], [facility] NPRG [facility] [address] [place] [address] documented in this encounter Visit Diagnoses Diagnosis Hypokalemia documented in this encounter Care Teams Biology Intern Relationship Specialty Start Date End Date Osiris Otero APRN, C.N.P., R.N. [address] [place] [address] PCP - General Family Medicine 09/17/23 12/08/23 documented as of this encounter
--- OUTSIDE RECORDS SUMMARY | 2024-02-06 08:19 | XMS_ITS | Referral Summary ---
Author Name Unknown Organization [facility] Address [address] [place] [address] Care Team Providers Care Felting Machine Operator Helper Name Role Phone Elsewhere, Pcp Primary Care Provider Unavailabl e Source Comments Patient records contain information from all sites at [facility]. For routine questions regarding patient records, call [phone] during business hours, M-F 8:00 AM - 5:00 PM Central Time. Record requests for emergency care only can be directed to [phone] at any time.[facility] Encounters Date Type Department Care Team Description 12/01/2023 Orders Only Department of Physical Medicine and Rehabilitation in [place], [place] [address] [place] [address] Charlotte Craig, [facility]-AGRICULTURAL EQUIPMENT OPERATOR 12/01/2023 Clinical Communication Department of Pulmonary Medicine in [place], [place] [address] [place] [address] Mercy Poe, P.A.-C. 11/28/2023 Clinical Communication Senior Services in [place] [address] [place] [address] Haven Saxena, RCarleen 11/28/2023 4:00 PM MOBILE HOME SET UP PERSON External Outreach Senior Services in [place] [address] [place] [phone] Osiris Otero, AMIRAH, C.N.P., R.N. Chronic Diastolic [...] Resonance Disorder 11/26/2023 Documentation Senior Services in [place] [address] [place] [address] Osiris Otero APRN, C.N.P., R.N. 11/25/2023 Clinical Communication Senior Services in [place] [address] [place] [address] Osiris Otero APRN, C.N.P., R.N. 11/10/2023 Orders Only Senior Services in [place] [address] [place] [address] Osiris Otero APRN, C.N.P., R.N. Neurogenic Bladder (Primary Dx) 11/07/2023 9:00 AM MOBILE HOME SET UP PERSON External Outreach Senior Services in [place] [address] [place] [address] Fernando Renee M.D. 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 Medications Medication Sig Dispensed Refills Start Date [...] 09/19/2023 Hypertension Essential Primary 09/19/2023 Corticosteroid Treatment Snf Systemic 05/2023 Paraplegia 09/19/2023 Osteoporosis 06/28/2021 Acute [...] oz pur e alcohol) [facility] Utilities Answer Date Recorded In the past 12 months has e [employer] gas, oil, or water [employer] threatened to shut off services in your [...] your living situation today? I have a [facility] place to live 10/19/2023 Sex and Gender Information Value Date Recorded Sex Assigned at Not on file Gender Identity Not on file Sexual Orientation Not on file Last Filed Vital Signs Vital Sign Reading Time Taken Comments Blood Pressure 110/68 11/28/2023 8:43 AM MOBILE HOME SET UP PERSON Pulse 76 11/28/2023 8:43 AM MOBILE HOME SET UP PERSON Temperature 36.7 ??C (98 ??F) 11/28/2023 8:43 AM MOBILE HOME SET UP PERSON Respiratory Rate 18 11/28/2023 8:43 AM MOBILE HOME SET UP PERSON Oxygen Saturation 95% 11/28/2023 8:43 AM MOBILE HOME SET UP PERSON RA Inhaled Oxygen Concentration - - Weight 58.8 kg (129 lb 9.6 oz) 11/28/2023 8:43 A M MOBILE HOME SET UP PERSON Height 152 cm (4' 11.84) 10/19/2023 5:00 AM MOBILE HOME SET UP PERSON Body Mass Index 25.44 10/19/2023 5:00 AM MOBILE HOME SET UP PERSON Plan of Treatment Not on file Procedures Procedure Name Priority Date/Time Associated Diagnosis Comments EXTM HOME SARS CORONAVIRUS-2 (COVID-19) ANTIGEN, V Routine 11/13/2023 BASIC METABOLIC PANEL, S/P Routine 11/04/2023 6:52 AM MOBILE HOME SET UP PERSON Hypokalemia from Last 3 Months or Most Recently Relevant to Health Maintenance Results * (ABNORMAL) EXT Home SARS Coronavirus-2 (COVID-19) Antigen (11/13/2023) EXT Home SARS-CoV-2 Antigen Presumptive Positive(A) Presumptive Negative OTHER (SPECIFY IN SUPERVISOR NEWSPAPER DELIVERIES) Swab 11/13/2023 Historical Provider LAB MICROBIOLOGY - G ENERAL ORDERABLES OTHER (SPECIFY IN SUPERVISOR NEWSPAPER DELIVERIES) N/A * (ABNORMAL) Basic Metabolic Panel (11/04/2023 6:52 AM MOBILE HOME SET UP PERSON) Potassium, P 4.1 3.6 - 5.2 mmol/L 11/04/2023 8:14 AM MOBILE HOME SET UP PERSON NPRG Sodium, P 142 135 - 145 mmol/L 11/04/2023 8:14 AM MOBILE HOME SET UP PERSON NPRG Chloride, P 102 98 - 107 mmol/L 11/04/2023 8:14 AM MOBILE HOME SET UP PERSON NPRG Bicarbonate, P 30(H) 22 - 29 mmol/L 11/04/2023 8:14 AM MOBILE HOME SET UP PERSON NPRG Anion Gap, P 10 7 - 15 11/04/2023 8:14 AM MOBILE HOME SET UP PERSON NPRG BUN (Blood Urea Nitrogen), P 21 6 - 21 mg/dL 11/04/2023 8:14 AM MOBILE HOME SET UP PERSON NPRG Creatinine 0.28(L) 0.59 - 1.04 mg/dL 11/04/2023 8:14 AM MOBILE HOME SET UP PERSON NPRG Estimated GFR (eGFR) >90 >=60 mL/min/BSA 11/04/2023 8:14 AM MOBILE HOME SET UP PERSON NPRG Comment: Estimated GFR calculated using the 2020 CKD_EPI creatinine equation. Calcium, Total, P 9.1 8.8 - 10.2 mg/dL 11/04/2023 8:14 AM MOBILE HOME SET UP PERSON NPRG Glucose, P 79 70 - 140 mg/dL 11/04/2023 8:14 AM MOBILE HOME SET UP PERSON NPRG Blood (Blood, Venous) 11/04/2023 6:52 AM MOBILE HOME SET UP PERSON 11/04/2023 7:43 AM MOBILE HOME SET UP PERSON Osiris Otero APRN, C.N.P., R.N. LAB B LOOD ADD-ON [facility] [address] [place] [address], [place] NPRG [facility] [place] [address] [place] [address] from Last 3 Months or Most Recently Relevant to Health Maintenance Advance Directives For more information, please contact: [phone] Documents on File Type Date Recorded Patient Construction Manager Expl anation Advance Directives 09/19/2023 4:06 PM POLS T/MOLST * DNR/DNI (Latest Code Status on File) Date Activated Date Inactivated Comments 10/19/2023 6:50 PM 10/27/2023 4:16 PM * Full Code Date Activated Date Inactivated Comments 10/19/2023 2:13 AM 10/19/2023 6:50 PM Question Answer Comments Full Code: Discussed Care Teams Felting Machine Operator Helper Relationship Specialty Start Date End Date Elsewhere, Pcp PCP - General Internal Medicine 12/09/23
--- OUTSIDE RECORDS SUMMARY | 2024-02-06 08:19 | XMS_ITS | Encounter Summary ---
Author Name Unknown Organization [facility] Address [address] [place] [address] Care Team Providers Care Tax Manager Name Role Phone Shanna Osiris Doe APRN C.N.Tia., R.N. Primary Care Provider Encounter Details Date Type Department Care Team (Late st Contact Info) Description 11/28/2023 Clinical Communication Senior Services in [place] [address] [place] [phone] Haven Saxena, R.N. Social History Tobacco Use Types Packs/Day Years Used Date Smoking Tobacco: Never Smokeless Tobacco: Never Alcohol Use Standard Drinks/Week Comments Defer 0 (1 standard drink = 0.6 oz pur e alcohol) [facility] Utilities Answer Date Recorded In the past 12 months has [facility] [employer], gas, oil, or water [employer] threatened to shut off services in your [...] Time COVID19 11/13/2023 11/13/2023 12/03/2023 5:55 AM PARIMUTUEL CLERK documented as of this encounter Care Teams Tax Manager Relationship Specialty Start Date End Date Osiris Otero APRN, C.N.P., R.N. [address] [place] [address] PCP - General Family Medicine 09/17/23 12/08/23 documented as of this encounter
--- OUTSIDE RECORDS SUMMARY | 2024-02-06 08:19 | XMS_ITS | Encounter Summary ---
Author Name Unknown Organization [facility] Address [address] [place] [address] Care Team Providers Care Soubrette Name Role Phone ShannaFransisca lopezOsirisdilcia Doe APRN, C.N.P., R.N. Primary Care Provider Encounter Details Date Type Department Care Team (Late st Contact Info) Description 10/13/2023 Clinical Communication Senior Services in [place] [address] [place] [address] Leatha Palacios APRN, C.N.P. [address] [place] [address] Social History Tobacco Use Types Packs/Day Years Used Date Smoking Tobacco: Never Smokeless Tobacco: Never Alcohol Use Standard Drinks/Week Comments Defer 0 (1 standard drink = 0.6 oz pur e alcohol) [facility] Utilities Answer Date Recorded In the past 12 months has [employer], gas, oil, or water [employer] threatened to shut off services in your [...] your living situation today? I have a [facility] place to live 10/19/2023 Sex and Gender Information Value Date Recorded Sex Assigned at Not on file Gender Identity Not on file Sexual Orientation Not on file documented as of this encounter Miscellaneous Notes * Telephone Encounter - Leatha Palacios APRN, C.N.P. - 10/13/2023 1:54 PM CST [facility] called with report that patient is coughing [...] doses. provider to re eval tomorrow. Call relationship counselor provider if condition changes. DENT ATHLETIC TRAINER documented in this encounter Plan of Treatment Not on file documented as of this encounter Visit Diagnoses Not on filedocumented in this encounter Additional Health Concerns Infection Onset Date Last Indicated Resolved Time COVID19 Pending 10/18/2023 10/18/2023 10/18/2023 9 :11 PM RESIDENT ATHLETIC TRAINER documented as of this encounter Care Teams Soubrette Relationship Specialty Start Date End Date Osiris Otero APRN, C.N.P., R.N. [address] [place] [address] PCP - General Family Medicine 09/17/23 12/08/23 documented as of this encounter
--- OUTSIDE RECORDS SUMMARY | 2024-02-06 08:19 | XMS_ITS | Encounter Summary ---
Author Name Unknown Organization [facility] Address [address] [place] [address] Care Team Providers Care Pcts Name Role Phone Osiris Otero APRN, C.N.P., R.N. Primary Care Provider Encounter Details Date Type Department Care Team (Latest Contact Info) Description 11/28/2023 4:00 PM BELT GLASS SANDER External Outreach Senior Services in [place] [address] [place] [address] Osiris Otero APRN C.N.P., R.N. [address] [place] [phone] Chronic Diastolic (Congestive) Heart Failure (HCC) (Primary [...] drink = 0.6 oz pur e alcohol) [facility] Utilities Answer Date Recorded In the past 12 months has [employer], gas, oil, or water [employer] threatened to shut off services in your [...] your living situation today? I have a [facility] place to live 10/19/2023 Sex and Gender Information Value Date Recorded Sex Assigned at Not on file Gender Identity Not on file Sexual Orientation Not on file documented as of this encounter Last Filed Vital Signs Vital Sign Reading Time Taken Comments Blood Pressure 110/68 11/28/2023 8:43 AM BELT GLASS SANDER Pulse 76 11/28/2023 8:43 AM BELT GLASS SANDER Temperature 36.7 ??C (98 ??F) 11/28/2023 8:43 AM BELT GLASS SANDER Respiratory Rate 18 11/28/2023 8:43 AM BELT GLASS SANDER Oxygen Saturation 95% 11/28/2023 8:43 AM BELT GLASS SANDER RA Inhaled Oxygen Concentration - - Weight 58.8 kg (129 lb 9.6 oz) 11/28/2023 8:43 A M BELT GLASS SANDER Height - - Body Mass Index 25.44 10/19/2023 5:00 AM BELT GLASS SANDER documented in this encounter Progress Notes * Osiris Otero APRN, C.N.P., R.N. - 11/28/2023 4:00 PM CST CHIEF COMPLAINT / REASON FOR VISIT The resident is being seen at [place], [place] for Discharge H&P Visit Type: In Person Face-to- Face visit SUBJECTIVE HISTORY OF PRESENT ILLNESS Obtained from Patient, Nursing, and SBAR: SNF VISIT for Post Hospital Follow up Visit This resident was recently hospitalized at: [facility] Date of hospitalization: DATE OF ADMISSION: 10/19/2023 DATE OF DISCHARGE: 10/22/2023 Reason for hospitalization: Acute Respiratory Failure With Hypoxia Prior to hospitalization patient did receive levofloxacin for 5 days. On 10/18/2023 she developed fever, cough, shortness of breath hypoxia. She was transferred to [place]. Her MRSA swab returned positive, Infectious Disease [...] 15-30 seconds. Patient was previously hospitalized at [facility] from 08/28/2023 through 09/17/2023, she [...] times a week. She follows with the [facility]. She has a hospital bed at home with an air mattress. She alsohas a Dustin lift at home. She was previously living at home with family. Patient will discharge with home physical, occupational, speech and nursing and professional nursing tutor. I personally reviewed the most recent following [...] home health nursing and follow up with [facility]. Multivitamin, zinc. Oxycodone to 7.5 mg four times per day as needed for pain.Unsure of discharge date, will send #45 tablets of oxycodone to [facility] in [place] once discharge date is set. #2 Chronic Diastolic (Congestive) Heart Failure (HCC) Furosemide, metoprolol last echocardiogram was January 2023 with EF greater than 75% #4 Obstructive Sleep Apnea Goal is 88-90%, requires BiPAP when sleeping, BIPAP at night and when napping. 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 Will discontinue Tessalon Perles and decrease potassium [...] other IDT members. Total time 60 minutes. GLASS SANDER documented in this encounter Plan of Treatment [...] Time COVID19 11/13/2023 11/13/2023 12/03/2023 5:55 AM BELT GLASS SANDER documented as of this encounter Care Teams Pcts Relationship Specialty Start Date End Date Osiris Otero APRN, C.N.P., R.N. [address] [place] [address] PCP - General Family Medicine 09/17/23 12/08/23 documented as of this encounter
--- OUTSIDE RECORDS SUMMARY | 2024-02-06 08:19 | XMS_ITS | Encounter Summary ---
Author Name Unknown Organization [facility] Address [address] [place] [address] Care Team Providers Care Dog Breeder Name Role Phone Shanna Elizabeth Murcia APRNNBuck, R.N. Primary Care Provider Reason for Referral * Speech Pathology (Routine) - Authorized Specialty Diagnoses / Procedures Referred By Contac t Referred To Contact Diagnoses Pneumonitis Due To Inhalation Of Food And Vomit (HCC) Procedures AD WRITER Dysphagia evaluate and treat [place] [address] [facility] Region Referral ID Status Reason Start Date Expiration Date V isits Requested Visits Authorized [id number] Authorized 11/07/2023 11/06/2024 1 1 FINGER CHIEF Encounter Details Date Type Department Care Team (Latest Contact Info) Description 11/07/2023 9:00 AM WHARFINGER CHIEF External Outreach [facility] in [place] [address] [place] [phone] Fernando Camarillo M.D. 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); Paraplegia (HCC); Pain Low Back Chronic; Other Adrenocortical Insufficiency (HCC); Osteoporosis; Obstructive Sleep Apnea Adult; Neurogenic Bladder; Hypertension Essential Primary; Diarrhea; Corticosteroid Treatment Launderette Attendant Systemic; Chronic Diastolic (Congestive) Heart Failure (HCC); [...] drink = 0.6 oz pur e alcohol) [facility] Utilities Answer Date Recorded In the past 12 months has [facility] [employer], gas, oil, or water [employer] threatened to shut off services in your [...] Comments Blood Pressure 118/84 11/07/2023 7:12 AM WHARFINGER CHIEF Pulse 84 11/07/2023 7:12 AM WHARFINGER CHIEF Temperature 36.9 ??C (98.5 ??F) 11/07/2023 7:12 AM CS T Respiratory Rate 18 11/07/2023 7:12 AM WHARFINGER CHIEF Oxygen Saturation 95% 11/07/2023 7:12 AM WHARFINGER CHIEF Inhaled Oxygen Concentration - - Weight 60.5 kg (133 lb 6.4 oz) 11/07/2023 7:12 A M WHARFINGER CHIEF Height - - Body Mass Index 26.19 10/19/2023 5:00 AM WHARFINGER CHIEF documented in this encounter Progress Notes * Fernando Camarillo M.D. - 11/07/2023 9:00 AM CST SUBJECTIVE CHIEF COMPLAINT / REASON FOR VISIT I am asked to see Prerna, for a Re-Admission visit. Visit Type: In Person Face-to- Face visit HISTORY OF PRESENT ILLNESS Prerna is a 77 y.o. female who currently resides at [facility] in [place], [place]. Obtained from Patient and SBAR: This 77-year-old female presented to our facility following treatment for perirectal abscess. Patient was hospitalized at [facility] from 08/28/2023 through 09/17/2023, she [...] [facility]. She was recently admitted to the [facility] after being seen in the emergency department in [place]. She had developed hypoxia and was felt [...] (HCC) 2. Chronic Diastolic (Congestive) Heart Failure ([facility]) 3. Unspecified Open Wound Right Buttock Initial 4. Pain Low Back Chronic 5. Other Adrenocortical Insufficiency ([facility]) 6. Osteoporosis 7. Neurogenic Bladder 8. Diarrhea 9. Arthritis Rheumatoid ([facility]) 10. Anemia 11. Hypertension Essential Primary 12. Corticosteroid Treatment Penitentiary Systemic 13. Paraplegia ([facility]) 14. Voice And Resonance Disorder - Primary 15. 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 Obstructive Sleep Apnea Adult I reviewed [...] daily. #6 Diarrhea Resolved #7 Corticosteroid Treatment Launderette Attendant Systemic Prednisone 10 mg daily #8 Benign Neoplasm Colon I do not have any updated records on this from [place] #9 Atrial Fibrillation Unspecified (HCC) Rate controlled [...] and will follow-up with general surgery in [place]. [facility] #[facility] Recent aspiration pneumonia. Will have swallow study performed. She has an appointment scheduled with pulmonology next month. FINGER CHIEF documented in this encounter Miscellaneous Notes * Addendum Note - Fernando Camarillo M.D. 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 [address] [place] [address] PCP - General Family Medicine 09/17/23 12/08/23 documented as of this encounter
== END 2024-02-06 08:18 | disposition home or self-care (01) ==
LOC: WOUND 08:17
PROVIDERS: PCP Family Medicine; Visit Provider Nurse Practitioner Family
DX: M86.68 Other chronic osteomyelitis, other site (principal); L89.314 Pressure ulcer of right buttock, stage 4; L89.153 Pressure ulcer of sacral region, stage 3; L89.894 Pressure ulcer of other site, stage 4; G82.20 Paraplegia, unspecified; Z99.3 Dependence on wheelchair
CPT/HCPCS: 11042; 87070; 87077; 87186; 97597; 97605; G0463

== ENCOUNTER 2024-02-13 08:14 | Outpatient (CLI) | payer MEDICARE, SELFPAY ==
--- OUTSIDE RECORDS SUMMARY | 2024-02-13 08:16 | XMS_ITS | Clinical Summary ---
Author Name Unknown Organization [facility] Address [address] [place] [address] Care Team Providers Care Software Engineering Manager Name Role Phone Elsewhere, Pcp Primary Care Provider Unavailabl e Source Comments Patient records contain information from all sites at [facility]. For routine questions regarding patient records, call [phone] during business hours, M-F 8:00 AM - 5:00 PM Central Time. Record requests for emergency care only can be directed to [phone] at any time.[facility] Allergies Active Allergy Reactions Criticality [...] 09/19/2023 Hypertension Essential Primary 09/19/2023 Corticosteroid Treatment Residential Systemic 05/2023 Paraplegia 09/19/2023 Osteoporosis 06/28/2021 Acute [...] Department of Physical Medicine and Rehabilitation in [place], [place] [address] [place] [phone] Charlotte Craig, [facility]-TRANSCRIPTION MANAGER 12/01/2023 Clinical Communication Department of Pulmonary Medicine in [place], [place] [address] [place] [phone] Mercy Poe P.A.-C. 11/28/2023 4:00 PM CANCER PROGRAM COORDINATOR External Outreach Senior Services in [address] [phone] sOiris Otero APRN, C.N.P., R.N. Chronic Diastolic (Congestive) [...] Disorder 11/28/2023 Clinical Communication Senior Services in [address] [phone] Haven Saxena R.N. 11/26/2023 Documentation Senior Services in [address] [phone] Osiris Otero APRN, C.N.P., R.N. 11/25/2023 Clinical Communication Senior Services in [address] [phone] Osiris Otero APRN, C.N.P., R.N. from Last 3 Months Immunizations [...] th e electric, gas, oil, or water [employer] threatened to shut off services in your [...] Comments Blood Pressure 110/68 11/28/2023 8:43 AM CANCER PROGRAM COORDINATOR Pulse 76 11/28/2023 8:43 AM CANCER PROGRAM COORDINATOR Temperature 36.7 ??C (98 ??F) 11/28/2023 8:43 AM CANCER PROGRAM COORDINATOR Respiratory Rate 18 11/28/2023 8:43 AM CANCER PROGRAM COORDINATOR Oxygen Saturation 95% 11/28/2023 8:43 AM CANCER PROGRAM COORDINATOR RA Inhaled Oxygen Concentration - - Weight 58.8 kg (129 lb 9.6 oz) 11/28/2023 8:43 A M CANCER PROGRAM COORDINATOR Height 152 cm (4' 11.84) 10/19/2023 5:00 AM CANCER PROGRAM COORDINATOR Body Mass Index 25.44 10/19/2023 5:00 AM CANCER PROGRAM COORDINATOR Plan of Treatment Health Maintenance Due Date [...] METABOLIC PANEL, S/P Routine 11/04/2023 6:52 AM CANCER PROGRAM COORDINATOR Hypokalemia from Last 3 Months or Most Recently Relevant to Health Maintenance Results * (ABNORMAL) Basic Metabolic Panel (11/04/2023 6:52 AM CANCER PROGRAM COORDINATOR) Potassium, P 4.1 3.6 - 5.2 mmol/L 11/04/2023 8:14 AM CANCER PROGRAM COORDINATOR NPRG Sodium, P 142 135 - 145 mmol/L 11/04/2023 8:14 AM CANCER PROGRAM COORDINATOR NPRG Chloride, P 102 98 - 107 mmol/L 11/04/2023 8:14 AM CANCER PROGRAM COORDINATOR NPRG Bicarbonate, P 30(H) 22 - 29 mmol/L 11/04/2023 8:14 AM CANCER PROGRAM COORDINATOR NPRG Anion Gap, P 10 7 - 15 11/04/2023 8:14 AM CANCER PROGRAM COORDINATOR NPRG BUN (Blood Urea Nitrogen), P 21 6 - 21 mg/dL 11/04/2023 8:14 AM CANCER PROGRAM COORDINATOR NPRG Creatinine 0.28(L) 0.59 - 1.04 mg/dL 11/04/2023 8:14 AM CANCER PROGRAM COORDINATOR NPRG Estimated GFR (eGFR) >90 >=60 mL/min/BSA 11/04/2023 8:14 AM CANCER PROGRAM COORDINATOR NPRG Comment: Estimated GFR calculated using the 2020 CKD_EPI creatinine equation. Calcium, Total, P 9.1 8.8 - 10.2 mg/dL 11/04/2023 8:14 AM CANCER PROGRAM COORDINATOR NPRG Glucose, P 79 70 - 140 mg/dL 11/04/2023 8:14 AM CANCER PROGRAM COORDINATOR NPRG Blood (Blood, Venous) 11/04/2023 6:52 AM CANCER PROGRAM COORDINATOR 11/04/2023 7:43 AM CANCER PROGRAM COORDINATOR Osiris Otero APRN C.N.P., R.N. LAB B LOOD ADD-ON [facility] [address] [place] [address], [facility] NPRG [facility] [address] [place] [address] from Last 3 Months or Most Recently Relevant to Health Maintenance Advance Directives For more information, please contact: [phone] Documents on File Type Date Recorded Patient Ciso Expl anation Advance Directives 09/19/2023 4:06 PM POLS T/MOLST * DNR/DNI (Latest Code Status on File) Date Activated Date Inactivated Comments 10/19/2023 6:50 PM 10/27/2023 4:16 PM * Full Code Date Activated Date Inactivated Comments 10/19/2023 2:13 AM 10/19/2023 6:50 PM Question Answer Comments Full Code: Discussed Care Teams Software Engineering Manager Relationship Specialty Start Date End Date Elsewhere, Pcp PCP - General Internal Medicine 12/09/23
--- OUTSIDE RECORDS SUMMARY | 2024-02-13 08:17 | XMS_ITS | Encounter Summary ---
Author Name Unknown Organization [facility] Address [address] [place] [address] Care Team Providers Care Senior Firewall Engineer Name Role Phone Elsewhere, Pcp Primary Care Provider Unavailabl e Encounter Details Date Type Department Care Team (Late st Contact Info) Description 12/01/2023 Clinical Communication Department of Pulmonary Medicine in [address] [phone] Mercy Poe P.A.-C. [address] [place] [phone] Social History Tobacco Use Types Packs/Day Years Used Date Smoking Tobacco: Never Smokeless Tobacco: Never Alcohol Use Standard Drinks/Week Comments Defer 0 (1 standard drink = 0.6 oz pur e alcohol) [facility] Utilities Answer Date Recorded In the past 12 months has [facility] [employer], gas, oil, or water [employer] threatened to shut off services in your [...] your living situation today? I have a [facility] place to live 10/19/2023 Sex [...] Time COVID19 11/13/2023 11/13/2023 12/03/2023 5:55 AM SPOT WASHER documented as of this encounter Care Teams Senior Firewall Engineer Relationship Specialty Start Date End Date Elsewhere, Pcp PCP - General Internal Medicine 12/09/23 documented as of this encounter
--- OUTSIDE RECORDS SUMMARY | 2024-02-13 08:17 | XMS_ITS | Encounter Summary ---
Author Name Unknown Organization [facility] Address [address] [place] [address] Care Team Providers Care Corrugated Sheet Material Sheeter Name Role Phone Shanna Osiris Doe APRN C.N.Tia., R.N. Primary Care Provider Encounter Details Date Type Department Care Team (Late st Contact Info) Description 11/28/2023 Clinical Communication Senior Services in [place] [address] [place] [phone] Haven Saxena, R.N. Social History Tobacco Use Types Packs/Day Years Used Date Smoking Tobacco: Never Smokeless Tobacco: Never Alcohol Use Standard Drinks/Week Comments Defer 0 (1 standard drink = 0.6 oz pur e alcohol) [facility] Utilities Answer Date Recorded In the past 12 months has [facility] [employer], gas, oil, or water [employer] threatened to shut off services in [...] Time COVID19 11/13/2023 11/13/2023 12/03/2023 5:55 AM BUSINESS UNIT MANAGER documented as of this encounter Care Teams Corrugated Sheet Material Sheeter Relationship Specialty Start Date End Date Osiris Otero APRN, C.N.P., R.N. [address] [place] [phone] PCP - General Family Medicine 09/17/23 12/08/23 documented as of this encounter
--- OUTSIDE RECORDS SUMMARY | 2024-02-13 08:17 | XMS_ITS | Encounter Summary ---
Author Name Unknown Organization [facility] Address [address] [place] [address] Care Team Providers Care Student Development Specialist Name Role Phone Osiris Otero APRN C.N.P., R.N. Primary Care Provider Encounter Details Date Type Department Care Team (Latest Contact Info) Description 11/04/2023 12:13 AM FLOOD CONTROL ENGINEER - 11/04/2023 11:59 PM [facility] Hospital Encounter Department of Laboratory Medicine in [place], [place] [address] [place] [address] Osiris Otero APRN, C.N.P., R.N. [address] [place] [phone] Hypokalemia Discharge Disposition: Home or Self Care Social History Tobacco Use Types Packs/Day Years Used Date Smoking Tobacco: Never Smokeless Tobacco: Never Alcohol Use Standard Drinks/Week Comments Defer 0 (1 standard drink = 0.6 oz pur e alcohol) [facility] Utilities Answer Date Recorded In the past 12 months has [employer], gas, oil, or water company threatened [...] your living situation today? I have a [facility] place to live 10/19/2023 Sex and [...] METABOLIC PANEL, S/P Routine 11/04/2023 6:52 AM FLOOD CONTROL ENGINEER Hypokalemia documented in this encounter Results * (ABNORMAL) Basic Metabolic Panel (11/04/2023 6:52 AM FLOOD CONTROL ENGINEER) Potassium, P 4.1 3.6 - 5.2 mmol/L 11/04/2023 8:14 AM FLOOD CONTROL ENGINEER NPRG Sodium, P 142 135 - 145 mmol/L 11/04/2023 8:14 AM FLOOD CONTROL ENGINEER NPRG Chloride, P 102 98 - 107 mmol/L 11/04/2023 8:14 AM FLOOD CONTROL ENGINEER NPRG Bicarbonate, P 30(H) 22 - 29 mmol/L 11/04/2023 8:14 AM FLOOD CONTROL ENGINEER NPRG Anion Gap, P 10 7 - 15 11/04/2023 8:14 AM FLOOD CONTROL ENGINEER NPRG BUN (Blood Urea Nitrogen), P 21 6 - 21 mg/dL 11/04/2023 8:14 AM FLOOD CONTROL ENGINEER NPRG Creatinine 0.28(L) 0.59 - 1.04 mg/dL 11/04/2023 8:14 AM FLOOD CONTROL ENGINEER NPRG Estimated GFR (eGFR) >90 >=60 mL/min/BSA 11/04/2023 8:14 AM FLOOD CONTROL ENGINEER NPRG Comment: Estimated GFR calculated using the 2020 CKD_EPI creatinine equation. Calcium, Total, P 9.1 8.8 - 10.2 mg/dL 11/04/2023 8:14 AM FLOOD CONTROL ENGINEER NPRG Glucose, P 79 70 - 140 mg/dL 11/04/2023 8:14 AM FLOOD CONTROL ENGINEER NPRG Blood (Blood, Venous) 11/04/2023 6:52 AM FLOOD CONTROL ENGINEER 11/04/2023 7:43 AM FLOOD CONTROL ENGINEER Elizabeth Wright APRNNBuck, R.N. LAB B LOOD ADD-ON [facility] [address] [place] [address], [facility] NPRG [facility] [address] [place] [address] documented in this encounter Visit Diagnoses Diagnosis Hypokalemia documented in this encounter Care Teams Student Development Specialist Relationship Specialty Start Date End Date Osiris Otero APRN, C.N.P., R.N. [address] [place] [phone] PCP - General Family Medicine 09/17/23 12/08/23 documented as of this encounter
--- OUTSIDE RECORDS SUMMARY | 2024-02-13 08:17 | XMS_ITS | Encounter Summary ---
Author Name Unknown Organization [facility] Address [address] [place] [address] Care Team Providers Care Pest Control Chemical Technician Name Role Phone Osiris Otero APRN, C.N.P., R.N. Primary Care Provider Encounter Details Date Type Department Care Team (Late st Contact Info) Description 11/26/2023 Documentation [facility] in [place] [address] [place] [phone] Osiris Otero APRN, C.N.P., R.N. [address] [place] [phone] Social History Tobacco Use Types Packs/Day Years Used Date Smoking Tobacco: Never Smokeless Tobacco: Never Alcohol Use Standard Drinks/Week Comments Defer 0 (1 standard drink = 0.6 oz pur e alcohol) [facility] Utilities Answer Date Recorded In the past 12 months has [employer], gas, oil, or water [employer] threatened to shut off services in your [...] your living situation today? I have a [facility] place to live 10/19/2023 Sex and Gender Information Value Date Recorded Sex Assigned at Not on file Gender Identity Not on file Sexual Orientation Not on file documented as of this encounter Progress Notes * Sol Mills L.P.N. - 11/26/2023 12:25 PM CST Encounter created to enter external lab results. RAL HOME ASSOCIATE documented in this encounter Plan of Treatment Not on file documented as of this encounter Procedures Procedure Name Priority Date/Time Associated Diagnosis Comments EXTM HOME SARS CORONAVIRUS-2 (COVID-19) ANTIGEN, V Routine 11/13/2023 documented in this encounter Results * (ABNORMAL) EXT Home SARS Coronavirus-2 (COVID-19) Antigen (11/13/2023) EXT Home SARS-CoV-2 Antigen Presumptive Positive(A) Presumptive Negative OTHER (SPECIFY IN OFFSET PLATE PREPARATION SUPERVISOR) Swab 11/13/2023 Historical Provider LAB MICROBIOLOGY - G ENERAL ORDERABLES OTHER (SPECIFY IN OFFSET PLATE PREPARATION SUPERVISOR) N/A documented in this encounter Visit Diagnoses Not on filedocumented in this encounter Additional Health Concerns Infection Onset Date Last Indicated Resolved Time COVID19 11/13/2023 11/13/2023 12/03/2023 5:55 AM FUNERAL HOME ASSOCIATE documented as of this encounter Care Teams Pest Control Chemical Technician Relationship Specialty Start Date End Date Osiris Otero APRN, C.N.P., R.N. [address] [place] [phone] PCP - General Family Medicine 09/17/23 12/08/23 documented as of this encounter
--- OUTSIDE RECORDS SUMMARY | 2024-02-13 08:17 | XMS_ITS ---
Author Name Unknown Organization [facility] Address [address] [place] [address] Care Team Providers Care Patcher Name Role Phone Unavailable Unavailable Unavailable Surgery Details Not on file Complications Check Surgery Details section. Procedure Estimated Blood Loss Check Surgery Details section. Procedure Findings Check Surgery Details section. Procedure Specimens Taken Check Surgery Details section.
--- OUTSIDE RECORDS SUMMARY | 2024-02-13 08:17 | XMS_ITS | Encounter Summary ---
Author Name Unknown Organization [facility] Address [address] [place] [address] Care Team Providers Care Draw Hand Name Role Phone Osiris Otero APRN, C.N.P., R.N. Primary Care Provider Encounter Details Date Type Department Care Team (Latest Contact Info) Description 11/28/2023 4:00 PM FRETTED INSTRUMENT REPAIRER External Outreach [facility] in [place] [address] [place] [address] Osiris Otero APRN C.N.P., R.N. [address] [place] [phone] Chronic Diastolic (Congestive) Heart Failure (HCC) (Primary [...] 0.6 oz pur e alcohol) [facility] Utilities Answer Date Recorded In the past 12 months has [employer], gas, oil, or water [employer] threatened to shut off services in your [...] your living situation today? I have a [facility] place to live 10/19/2023 Sex and Gender Information Value Date Recorded Sex Assigned at Not on file Gender Identity Not on file Sexual Orientation Not on file documented as of this encounter Last Filed Vital Signs Vital Sign Reading Time Taken Comments Blood Pressure 110/68 11/28/2023 8:43 AM FRETTED INSTRUMENT REPAIRER Pulse 76 11/28/2023 8:43 AM FRETTED INSTRUMENT REPAIRER Temperature 36.7 ??C (98 ??F) 11/28/2023 8:43 AM FRETTED INSTRUMENT REPAIRER Respiratory Rate 18 11/28/2023 8:43 AM FRETTED INSTRUMENT REPAIRER Oxygen Saturation 95% 11/28/2023 8:43 AM FRETTED INSTRUMENT REPAIRER RA Inhaled Oxygen Concentration - - Weight 58.8 kg (129 lb 9.6 oz) 11/28/2023 8:43 A M FRETTED INSTRUMENT REPAIRER Height - - Body Mass Index 25.44 10/19/2023 5:00 AM FRETTED INSTRUMENT REPAIRER documented in this encounter Progress Notes * Osiris Otero APRN, C.N.P., R.N. - 11/28/2023 4:00 PM CST CHIEF COMPLAINT / REASON FOR VISIT The resident is being seen at [place], [place] for Discharge H&P Visit Type: In Person Face-to- Face visit SUBJECTIVE HISTORY OF PRESENT ILLNESS Obtained from Patient, Nursing, and SBAR: SNF VISIT for Post Hospital Follow up Visit This resident was recently hospitalized at: [facility] Date of hospitalization: DATE OF ADMISSION: 10/19/2023 DATE OF DISCHARGE: 10/22/2023 Reason for hospitalization: Acute Respiratory Failure With Hypoxia Prior to hospitalization patient did receive levofloxacin for 5 days. On 10/18/2023 she developed fever, cough, shortness of breath hypoxia. She was transferred to [place]. Her MRSA swab returned positive, Infectious Disease [...] off her oxygen. She [facility] back [facility] facility. She did have intermittent episodes of hypoxia where she would go down to 82% especially if on her left side. She would rebound back to 95% in about 15-30 seconds. Patient was previously hospitalized at [facility] from 08/28/2023 through 09/17/2023, she has [...] obstructive sleep apnea. She is followed by [facility] wound care provider. Patient tested positive for COVID on 11/13/23. She said she had a day where she was very sleepy and acouple of days where she did not have much of an appetite. She did not receive any COVID therapies. Patient currently has wound VAC in place and will need to have this changed 3 times a week. She follows with the [facility]. She has a hospital bed at home with an air mattress. She alsohas a Dustin lift at home. She was previously living at home with family. Patient will discharge with home physical, occupational, speech and nursing and skilled nursing professional. I personally reviewed the most recent following [...] home health nursing and follow up with [facility]. Multivitamin, zinc. Oxycodone to 7.5 mg four times per day as needed for pain.Unsure of discharge date, will send #45 tablets of oxycodone to [facility] in [place] once discharge date is set. #2 Chronic Diastolic (Congestive) Heart Failure (HCC) Furosemide, metoprolol last echocardiogram was January 2023 with EF greater than 75% #4 Obstructive Sleep Apnea Goal is 88-90%, requires BiPAP when sleeping, BIPAP at night and when napping. 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 Will discontinue Tessalon Perles and decrease potassium [...] other IDT members. Total time 60 minutes. TED INSTRUMENT REPAIRER documented in this encounter Plan of Treatment [...] Time COVID19 11/13/2023 11/13/2023 12/03/2023 5:55 AM FRETTED INSTRUMENT REPAIRER documented as of this encounter Care Teams Draw Hand Relationship Specialty Start Date End Date Osiris Otero APRN, C.N.P., R.N. [address] [place] [address] PCP - General Family Medicine 09/17/23 12/08/23 documented as of this encounter
--- OUTSIDE RECORDS SUMMARY | 2024-02-13 08:17 | XMS_ITS | Referral Summary ---
Author Name Unknown Organization [facility] Address [address] [place] [address] Care Team Providers Care Slide Developer Name Role Phone Elsewhere, Pcp Primary Care Provider Unavailabl e Source Comments Patient records contain information from all sites at [facility]. For routine questions regarding patient records, call [phone] during business hours, M-F 8:00 AM - 5:00 PM Central Time. Record requests for emergency care only can be directed to [phone] at any time.[facility] Encounters Date Type Department Care Team Description 12/01/2023 Orders Only Department of Physical Medicine and Rehabilitation in [place], [place] [address] [place] [address] Charlotte Craig, [facility] 12/01/2023 Clinical Communication Department of Pulmonary Medicine in [place], [place] [address] [place] [address] Mercy Poe, P.A.-C. 11/28/2023 Clinical Communication Senior Services in [place] [address] [place] [address] Haven Saxena, RCarleen 11/28/2023 4:00 PM CHEMICAL ETCHING PROCESSOR External Outreach [facility] in [place] [address] [place] [phone] Osiris Otero, AMIRAH, C.N.P., R.N. 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 11/25/2023 Clinical Communication [facility] in [place] [address] [place] [address] Osiris Otero APRN, C.N.P., R.N. from Last [...] 09/19/2023 Hypertension Essential Primary 09/19/2023 Corticosteroid Treatment Arc Welder Systemic 05/2023 Paraplegia 09/19/2023 Osteoporosis 06/28/2021 Acute [...] drink = 0.6 oz pur e alcohol) [facility] Utilities Answer Date Recorded In the past 12 months has th e electric, gas, oil, or water [employer] threatened to shut off services in your [...] Comments Blood Pressure 110/68 11/28/2023 8:43 AM CHEMICAL ETCHING PROCESSOR Pulse 76 11/28/2023 8:43 AM CHEMICAL ETCHING PROCESSOR Temperature 36.7 ??C (98 ??F) 11/28/2023 8:43 AM CHEMICAL ETCHING PROCESSOR Respiratory Rate 18 11/28/2023 8:43 AM CHEMICAL ETCHING PROCESSOR Oxygen Saturation 95% 11/28/2023 8:43 AM CHEMICAL ETCHING PROCESSOR RA Inhaled Oxygen Concentration - - Weight 58.8 kg (129 lb 9.6 oz) 11/28/2023 8:43 A M CHEMICAL ETCHING PROCESSOR Height 152 cm (4' 11.84) 10/19/2023 5:00 AM CHEMICAL ETCHING PROCESSOR Body Mass Index 25.44 10/19/2023 5:00 AM CHEMICAL ETCHING PROCESSOR Plan of Treatment Not on file Procedures Procedure Name Priority Date/Time Associated Diagnosis Comments BASIC METABOLIC PANEL, S/P Routine 11/04/2023 6:52 AM CHEMICAL ETCHING PROCESSOR Hypokalemia from Last 3 Months or Most Recently Relevant to Health Maintenance Results * (ABNORMAL) Basic Metabolic Panel (11/04/2023 6:52 AM CHEMICAL ETCHING PROCESSOR) Potassium, P 4.1 3.6 - 5.2 mmol/L 11/04/2023 8:14 AM CHEMICAL ETCHING PROCESSOR NPRG Sodium, P 142 135 - 145 mmol/L 11/04/2023 8:14 AM CHEMICAL ETCHING PROCESSOR NPRG Chloride, P 102 98 - 107 mmol/L 11/04/2023 8:14 AM CHEMICAL ETCHING PROCESSOR NPRG Bicarbonate, P 30(H) 22 - 29 mmol/L 11/04/2023 8:14 AM CHEMICAL ETCHING PROCESSOR NPRG Anion Gap, P 10 7 - 15 11/04/2023 8:14 AM CHEMICAL ETCHING PROCESSOR NPRG BUN (Blood Urea Nitrogen), P 21 6 - 21 mg/dL 11/04/2023 8:14 AM CHEMICAL ETCHING PROCESSOR NPRG Creatinine 0.28(L) 0.59 - 1.04 mg/dL 11/04/2023 8:14 AM CHEMICAL ETCHING PROCESSOR NPRG Estimated GFR (eGFR) >90 >=60 mL/min/BSA 11/04/2023 8:14 AM CHEMICAL ETCHING PROCESSOR NPRG Comment: Estimated GFR calculated using the 2020 CKD_EPI creatinine equation. Calcium, Total, P 9.1 8.8 - 10.2 mg/dL 11/04/2023 8:14 AM CHEMICAL ETCHING PROCESSOR NPRG Glucose, P 79 70 - 140 mg/dL 11/04/2023 8:14 AM CHEMICAL ETCHING PROCESSOR NPRG Blood (Blood, Venous) 11/04/2023 6:52 AM CHEMICAL ETCHING PROCESSOR 11/04/2023 7:43 AM CHEMICAL ETCHING PROCESSOR Osiris Otero APRN, C.N.P., R.N. LAB B LOOD ADD-ON [facility] [address] [place] [address], [place] NPRG [facility] [address] [place] [address] from Last 3 Months or Most Recently Relevant to Health Maintenance Advance Directives For more information, please contact: [phone] Documents on File Type Date Recorded Patient Train Station Server Expl anation Advance Directives 09/19/2023 4:06 PM POLS T/MOLST * DNR/DNI (Latest Code Status on File) Date Activated Date Inactivated Comments 10/19/2023 6:50 PM 10/27/2023 4:16 PM * Full Code Date Activated Date Inactivated Comments 10/19/2023 2:13 AM 10/19/2023 6:50 PM Question Answer Comments Full Code: Discussed Care Teams Slide Developer Relationship Specialty Start Date End Date Elsewhere, Pcp PCP - General Internal Medicine 12/09/23
--- OUTSIDE RECORDS SUMMARY | 2024-02-13 08:17 | XMS_ITS | Encounter Summary ---
Author Name Unknown Organization [facility] Address [address] [place] [address] Care Team Providers Care Rag Shredder Name Role Phone Shanna Elizabeth Murcia APRNNJuan., R.N. Primary Care Provider Encounter Details Date Type Department Care Team (Late st Contact Info) Description 12/01/2023 Orders Only Department of Physical Medicine and Rehabilitation in [place], [place] [address] [place] [phone] Charlotte Craig, [facility] [address] [place] [address] Social History Tobacco Use Types Packs/Day Years Used Date Smoking Tobacco: Never Smokeless Tobacco: Never Alcohol Use Standard Drinks/Week Comments Defer 0 (1 standard drink = 0.6 oz pur e alcohol) [facility] Utilities Answer Date Recorded In the past 12 months has [employer], gas, oil, or water [email or web address] threatened to shut off services in your [...] living situation today? I have a [facility] place to live 10/19/2023 Sex and [...] Time COVID19 11/13/2023 11/13/2023 12/03/2023 5:55 AM DATA SYSTEMS MANAGER documented as of this encounter Care Teams Rag Shredder Relationship Specialty Start Date End Date Osiris Otero APRN, C.N.P., R.N. [address] [place] [address] PCP - General Family Medicine 09/17/23 12/08/23 documented as of this encounter
--- OUTSIDE RECORDS SUMMARY | 2024-02-13 08:17 | XMS_ITS | Clinical Summary ---
Author Name Unknown Organization [facility] Address [place], [place] [address] Care Team Providers Care Architecture Technician Name Role Phone Kallie Tamayo NP Unavailable [phone] [facility], [place] Unavailable [phone] Flo Mckeon MD Primary Care Provider [phone] Allergies No known active allergies Medications Medication [...] Influenza for age 65+ 06/13/2024 Care Teams Architecture Technician Relationship Specialty Start Date End Date Flo Mckeon MD [address] [place] [phone] PCP - General Family Practice 10/04/21 Kallie Tamayo NP [address] [phone] Family Practice 01/17/14 [facility] [place] [address] [address] 01/29/14
--- OUTSIDE RECORDS SUMMARY | 2024-02-13 08:17 | XMS_ITS | Encounter Summary ---
Author Name Unknown Organization [facility] Address [address] [place] [address] Care Team Providers Care Clerk Supervisor Name Role Phone Shanna Elizabeth Murcia APRNNBuck, R.N. Primary Care Provider Reason for Referral * Speech Pathology (Routine) - Authorized Specialty Diagnoses / Procedures Referred By Contac t Referred To Contact Diagnoses Pneumonitis Due To Inhalation Of Food And Vomit (HCC) Procedures RESEARCH PROGRAM COORDINATOR Dysphagia evaluate and treat Fernando Cam[place] [address] [facility] Region Referral ID Status Reason Start Date Expiration Date V isits Requested Visits Authorized [id number] Authorized 11/07/2023 11/06/2024 1 1 ING PROFESSOR Encounter Details Date Type Department Care Team (Latest Contact Info) Description 11/07/2023 9:00 AM NURSING PROFESSOR External Outreach Senior Services in [place] [address] [place] [phone] Fernando Camarillo M.D. 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); Paraplegia (HCC); Pain Low Back Chronic; Other Adrenocortical Insufficiency (HCC); Osteoporosis; Obstructive Sleep Apnea Adult; Neurogenic Bladder; Hypertension Essential Primary; Diarrhea; Corticosteroid Treatment Entry Level Project Engineer Systemic; Chronic Diastolic (Congestive) Heart Failure (HCC); [...] drink = 0.6 oz pur e alcohol) [facility] Utilities Answer Date Recorded In the past 12 months has [facility] [employer], gas, oil, or water [employer] threatened to shut off services in your [...] Comments Blood Pressure 118/84 11/07/2023 7:12 AM NURSING PROFESSOR Pulse 84 11/07/2023 7:12 AM NURSING PROFESSOR Temperature 36.9 ??C (98.5 ??F) 11/07/2023 7:12 AM CS T Respiratory Rate 18 11/07/2023 7:12 AM NURSING PROFESSOR Oxygen Saturation 95% 11/07/2023 7:12 AM NURSING PROFESSOR Inhaled Oxygen Concentration - - Weight 60.5 kg (133 lb 6.4 oz) 11/07/2023 7:12 A M NURSING PROFESSOR Height - - Body Mass Index 26.19 10/19/2023 5:00 AM NURSING PROFESSOR documented in this encounter Progress Notes * Fernando Camarillo M.D. - 11/07/2023 9:00 AM CST SUBJECTIVE CHIEF COMPLAINT / REASON FOR VISIT I am asked to see Prerna, for a Re-Admission visit. Visit Type: In Person Face-to- Face visit HISTORY OF PRESENT ILLNESS Prerna is a 77 y.o. female who currently resides at [facility] in [place], [place]. Obtained from Patient and SBAR: This 77-year-old female presented to our facility following treatment for perirectal abscess. Patient was hospitalized at [facility] from 08/28/2023 through 09/17/2023, she has [...] obstructive sleep apnea. She is followed by [facility] [place] wound care provider. She was recently admitted to the [facility] after being seen in the emergency department in [place]. She had developed hypoxia and was felt [...] (HCC) 2. Chronic Diastolic (Congestive) Heart Failure ([facility]) 3. Unspecified Open Wound Right Buttock Initial 4. Pain Low Back Chronic 5. Other Adrenocortical Insufficiency ([facility]) 6. Osteoporosis 7. Neurogenic Bladder 8. Diarrhea 9. 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 Anemia 11. Hypertension Essential Primary 12. Corticosteroid Treatment [facility] Systemic 13. Paraplegia ([facility]) 14. Voice And Resonance Disorder - Primary 15. 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 Obstructive Sleep Apnea Adult I [...] daily. #6 Diarrhea Resolved #7 Corticosteroid Treatment Entry Level Project Engineer Systemic Prednisone 10 mg daily #8 Benign Neoplasm Colon I do not have any updated records on this from [place] #9 Atrial Fibrillation Unspecified (HCC) Rate controlled [...] and will follow-up with general surgery in [place]. [facility] #15 Recent aspiration pneumonia. Will have swallow study performed. She has an appointment scheduled with pulmonology next month. ING PROFESSOR documented in this encounter Miscellaneous Notes * Addendum Note - Fernando Camarillo M.D. 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 [address] [place] [address] PCP - General Family Medicine 09/17/23 12/08/23 documented as of this encounter
--- OUTSIDE RECORDS SUMMARY | 2024-02-13 08:17 | XMS_ITS | Encounter Summary ---
Author Name Unknown Organization [facility] Address [address] [place] [address] Care Team Providers Care Programming Engineer Name Role Phone Osiris Otero APRN, C.N.PRoberto, R.N. Primary Care Provider Reason for Referral * Outpatient (Routine) - Authorized Specialty Diagnoses / Procedures Referred By Paresh t Referred To Contact Pulmonary Medicine Diagnoses Orthopnea Osiris Otero APRN, C.N.P., R.N. [address] [place] [address] [facility] Referral ID Status Reason Start Date Expiration Date Visits Requested Visits Authorized [id number] Authorized Specialty Services Required 10/31/2023 05/01/2025 1 1 CLERK Encounter Details Date Type Department Care Team (Latest Contact Info) Description 10/31/2023 10:00 AM OTC CLERK External Outreach Senior Services in [place] [address] [place] [address] Osiris Otero APRN, C.N.P., R.N. [address] [place] [phone] Orthopnea (Primary Dx); Pressure Injury (Ulcer) Of [...] Resonance Disorder; Obstructive Sleep Apnea Adult; Paraplegia ([facility]) Social History Tobacco Use Types Packs/Day Years Used Date Smoking Tobacco: Never Smokeless Tobacco: Never Tobacco Cessation:Counseling Given: Not Answered Alcohol Use Standard Drinks/Week Comments Defer 0 (1 standard drink = 0.6 oz pur e alcohol) [facility] Utilities Answer Date Recorded In the past 12 months has e [employer], gas, oil, or water [employer] threatened to shut off services in your [...] living situation today? I have a [facility] place to live 10/19/2023 Sex and Gender Information Value Date Recorded Sex Assigned at Not on file Gender Identity Not on file Sexual Orientation Not on file documented as of this encounter Last Filed Vital Signs Vital Sign Reading Time Taken Comments Blood Pressure 110/62 10/31/2023 9:01 AM OTC CLERK Pulse 98 10/31/2023 9:01 AM OTC CLERK Temperature 36.3 ??C (97.4 ??F) 10/31/2023 9:01 AM CS T Respiratory Rate 18 10/31/2023 9:01 AM OTC CLERK Oxygen Saturation 95% 10/31/2023 9:01 AM OTC CLERK Inhaled Oxygen Concentration - - Weight 61.2 kg (135 lb) 10/31/2023 9:01 AM OTC CLERK Height - - Body Mass Index 26.5 10/19/2023 5:00 AM OTC CLERK documented in this encounter Progress Notes * Sol Mills L.P.N. - 10/31/2023 10:00 AM CST SNF VISIT for Post Hospital Follow up Visit This resident was recently hospitalized at: [facility] Date of hospitalization: DATE OF [...] wound. Wounds/L/D/A: None SNF Nurse concerns: unknown CLERK * Osiris Otero APRN, ElizabethN.P., R.N. - 10/31/2023 10:00 AM CST CHIEF COMPLAINT / REASON FOR VISIT The resident is being seen at [place], [place] for Post hospitalization Follow up Visit Type: In Person Face-to- Face visit SUBJECTIVE HISTORY OF PRESENT ILLNESS Obtained from Patient, Nursing, and SBAR: SNF VISIT for Post Hospital Follow up Visit This resident was recently hospitalized at: [facility] Date of hospitalization: DATE OF ADMISSION: 10/19/2023 DATE OF DISCHARGE: 10/22/2023 Reason for hospitalization: Acute Respiratory Failure With Hypoxia Prior to hospitalization patient did receive levofloxacin for 5 days. On 10/18/2023 she developed fever, cough, shortness of breath hypoxia. She was transferred to [place]. Her MRSA swab returned positive, Infectious Disease [...] 15-30 seconds. Patient was previously hospitalized at [facility] from 08/28/2023 through 09/17/2023, she [...] sleep apnea. She is followed by [facility] care provider. Patient is seen [...] Injury (Ulcer) Of Sacral Region Stage 2 ([facility]) 17. Obstructive Sleep Apnea Adult 18. 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 Takes gabapentin three times per day #6 Anemia CBC next week #7 Arthritis Rheumatoid ([facility]) Prednisone 10 mg daily (was stress dosed and is back to 10 mg daily) #8 Atrial Fibrillation Unspecified ([facility]) History of, not on anticoagulation, does take metoprolol #9 Diarrhea Scheduled loperamide and has daily probiotic #10 Edema Localized Furosemide 40 mg daily and potassium 20 mEq three times a day ([facility] on 11/04) #11 Hypertension Essential Primary Metoprolol (discharged on tartrate and succinate). 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 Total time 40 minutes. CLERK documented in this encounter Miscellaneous Notes * Addendum Note - Hermes Edouard R.N. - 10/31/2023 10:00 AM CSTAddended by: HERMES EDOUARD on: 11/05/2023 12:30 PM Modules accepted: Orders CLERK documented in this encounter Plan of [...] (HCC) documented in this encounter Care Teams Programming Engineer Relationship Specialty Start Date End Date Osiris Otero APRN, C.N.P., R.N. [address] [place] [phone] PCP - General Family Medicine 09/17/23 12/08/23 documented as of this encounter
--- OUTSIDE RECORDS SUMMARY | 2024-02-13 08:17 | XMS_ITS | Encounter Summary ---
Author Name Unknown Organization [facility] Address [address] [place] [address] Care Team Providers Care Zipper Slide Attacher Name Role Phone Osiris Otero APRN, C.N.P., R.N. Primary Care Provider Reason for Visit * Reason Onset Date Comments Med Question 10/16/2023 Clarification ox ycodone Encounter Details Date Type Department Care Team (Latest Contact Info) Description 10/16/2023 Clinical Communication Senior Services in [place] [address] [place] [address] Osiris Otero APRN, C.N.P., R.N. [address] [place] [address] Med Question (Clarification oxycodone) Social History Tobacco Use Types Packs/Day Years Used Date Smoking Tobacco: Never Smokeless Tobacco: Never Alcohol Use Standard Drinks/Week Comments Defer 0 (1 standard drink = 0.6 oz pur e alcohol) [facility] Utilities Answer Date Recorded In the [...] living situation today? I have a [facility] place to live 10/19/2023 Sex and Gender Information Value Date Recorded Sex Assigned at Not on file Gender Identity Not on file Sexual Orientation Not on file documented as of this encounter Miscellaneous Notes * Telephone Encounter - Osiris Otero APRN, C.N.P., R.N. - 10/17/2023 11:39 AM CST Sent new script for 5 mg four times daily prn T OPERATIONS MANAGER * Telephone Encounter - Haven Saxena R.N. - 10/16/2023 12:49 PM FLEET OPERATIONS MANAGER Called Elvi, she stated that on Rx instructions they do no have dose amount (5mg vs 10mg?, etc.) melonie given four times a day as needed. Please review and update T OPERATIONS MANAGER * Telephone Encounter - Shital Parish - 10/16/2023 12:22 PM CST MEDICATION QUESTION What is the patient's question? Recent changes Medication name/dose: oxyCODONE (ROXICODONE) 5 mg immediate release table What pharmacy are you using today? [facility] [address] [address] Additional comments (if any): Elvi from pharmacy is needing a clarification on the medication. Callback [phone] Special calling instructions: Ok to leave detailed message on voicemail? yes Portal: N/A T OPERATIONS MANAGER documented in this encounter Plan of Treatment Not on file documented as of this encounter Visit Diagnoses Not on filedocumented in this encounter Additional Health Concerns Infection Onset Date Last Indicated Resolved Time COVID19 Pending 10/18/2023 10/18/2023 10/18/2023 9 :11 PM FLEET OPERATIONS MANAGER documented as of this encounter Care Teams Zipper Slide Attacher Relationship Specialty Start Date End Date Osiris Otero APRN, C.N.P., R.N. [address] [place] [address] PCP - General Family Medicine 09/17/23 12/08/23 documented as of this encounter
--- OUTSIDE RECORDS SUMMARY | 2024-02-13 08:17 | XMS_ITS | Clinical Summary ---
Author Name Unknown Organization [facility] Address [address] [place] [address] Care Team Providers Care Assistant Professor Of Theater Name Role Phone Flo Mckeon MD Primary Care Provider + [phone] Source Comments You are receiving this document [...] for each transition of care or referral. [facility] Medications Medication Sig Dispensed Refills Start Date End Date Status acetaminophen (TYLENOL ARTHRITIS) 650 MG controlled release tablet as needed Active furosemide (LASIX) 20 MG tablet Daily 06/11/2021 Active diphenhydrAMINE-APAP 25-500 MG tablet Bedtime as needed A ctive predniSONE (DELTASONE) 5 MG tablet 10 mg daily. 06/11/2021 Active aspirin EC 81 MG enteric coated tablet Daily Act job pseudoephedrine ([id number]) 120 MG 12 hour release tablet Daily [...] Negative (Non Reactive) 06/28/2021 7:52 PM CDT [facility] Comment:Antibodies to HCV no t detected. Does not exclude the possiblity of exposure to HCV. Blood Venipuncture / Unknown 06/28/2021 2:27 PM CDT 06/28/2021 2:28 PM CDT Lorenza Q Black DO LAB_1 [facility] [address] [place], [place] [id number] [place] [address] from Last 3 Months or Most Recently Relevant to Health Maintenance Care Teams Assistant Professor Of Theater Relationship Specialty Start Date End Date Flo Mckeon MD [address] [place] [address] PCP - General 06/21/21
--- OUTSIDE RECORDS SUMMARY | 2024-02-13 08:17 | XMS_ITS | Encounter Summary ---
Author Name Unknown Organization [facility] Address [address] [place] [address] Care Team Providers Care Mitten Stitcher Name Role Phone Elsewhere, Pcp Primary Care Provider Unavailabl e Encounter Details Date Type Department Care Team (Latest Contact Info) Description 10/18/2023 Intake [facility] Social History Tobacco Use Types Packs/Day Years Used Date Smoking Tobacco: Never Smokeless Tobacco: Never Alcohol Use Standard Drinks/Week Comments Defer 0 (1 standard drink = 0.6 oz pur e alcohol) [facility] Utilities Answer Date Recorded In the past 12 months has e electric, gas, oil, or water [employer] threatened to shut off services in your [...] Pending 10/18/2023 10/18/2023 10/18/2023 9 :11 PM PRESS SUPERVISOR COVID19 11/13/2023 11/13/2023 12/03/2023 5:55 AM PRESS SUPERVISOR documented as of this encounter Care Teams Mitten Stitcher Relationship Specialty Start Date End Date Elsewhere, Pcp PCP - General Internal Medicine 12/09/23 documented as of this encounter
--- OUTSIDE RECORDS SUMMARY | 2024-02-13 08:17 | XMS_ITS | Encounter Summary ---
Author Name Unknown Organization [facility] Address [address] [place] [address] Care Team Providers Care Safety Intern Name Role Phone Osiris Otero APRN, C.N.P., R.N. Primary Care Provider Encounter Details Date Type Department Care Team (Late st Contact Info) Description 11/25/2023 Clinical Communication Senior Services in [place] [address] [place] [phone] Osiris Otero APRN, C.N.P., R.N. [address] [place] [phone] Social History Tobacco Use Types Packs/Day Years Used Date Smoking Tobacco: Never Smokeless Tobacco: Never Alcohol Use Standard Drinks/Week Comments Defer 0 (1 standard drink = 0.6 oz pur e alcohol) [facility] Utilities Answer Date Recorded In the past 12 months has [employer], gas, oil, or water [employer] threatened to shut off services in [...] your living situation today? I have a [facility] place to live 10/19/2023 Sex [...] tablet Refill: 0 Please send half tablets. ING PROGRAM COORDINATOR documented in this encounter Plan of Treatment Not on file documented as of this encounter Visit Diagnoses Not on filedocumented in this encounter Care Teams Safety Intern Relationship Specialty Start Date End Date Osiris Otero APRN, C.N.P., R.N. [address] [place] [address] PCP - General Family Medicine 09/17/23 12/08/23 documented as of this encounter
--- OUTSIDE RECORDS SUMMARY | 2024-02-13 08:17 | XMS_ITS | Encounter Summary ---
Author Name Unknown Organization [facility] Address [address] [place] [address] Care Team Providers Care Trolley Worker Name Role Phone Osiris Otero APRN, C.N.P., R.N. Primary Care Provider Reason for Referral * Outpatient (Routine) - Authorized Specialty Diagnoses / Procedures Referred By Contfarideh t Referred To Contact Urology Diagnoses Neurogenic Bladder Osiris Otero APRN C.N.P., R.N. [address] [place] [address] [facility] Region Referral ID Status Reason Start Date Expiration Date V isits Requested Visits Authorized [id number] Authorized 11/10/2023 05/11/2025 1 1 Y MANAGEMENT SPECIALIST Encounter Details Date Type Department Care Team (Late st Contact Info) Description 11/10/2023 Orders Only Senior Services in [place] [address] [place] [phone] Osiris Otero APRN, C.N.P., R.N. [address] [place] [address] Neurogenic Bladder (Primary Dx) Social History Tobacco Use Types Packs/Day Years Used Date Smoking Tobacco: Never Smokeless Tobacco: Never Alcohol Use Standard Drinks/Week Comments Defer 0 (1 standard drink = 0.6 oz pur e alcohol) [facility] Utilities Answer Date Recorded In the [...] Primary documented in this encounter Care Teams Trolley Worker Relationship Specialty Start Date End Date Osiris Otero APRN, C.N.P., R.N. [address] [place] [address] PCP - General Family Medicine 09/17/23 12/08/23 documented as of this encounter
--- OUTSIDE RECORDS SUMMARY | 2024-02-13 08:17 | XMS_ITS | Encounter Summary ---
Author Name Unknown Organization [facility] Address [address] [place] [address] Care Team Providers Care Home Coordinator Name Role Phone ShannaFransisca lopezOsirisdilcia Doe APRN, C.N.P., R.N. Primary Care Provider Encounter Details Date Type Department Care Team (Late st Contact Info) Description 10/13/2023 Clinical Communication Senior Services in [place] [address] [place] [address] Leatha Palacios APRN, C.N.P. [address] [place] [address] Social History Tobacco Use Types Packs/Day Years Used Date Smoking Tobacco: Never Smokeless Tobacco: Never Alcohol Use Standard Drinks/Week Comments Defer 0 (1 standard drink = 0.6 oz pur e alcohol) [facility] Utilities Answer Date Recorded In the past 12 months has [employer], gas, oil, or water [employer] threatened to shut off services in your [...] your living situation today? I have a [facility] [employer] place to live 10/19/2023 Sex and Gender [...] doses. provider to re eval tomorrow. Call data center solutions architect provider if condition changes. RAL RESOURCES PROFESSOR documented in this encounter Plan of Treatment Not on file documented as of this encounter Visit Diagnoses Not on filedocumented in this encounter Additional Health Concerns Infection Onset Date Last Indicated Resolved Time COVID19 Pending 10/18/2023 10/18/2023 10/18/2023 9 :11 PM NATURAL RESOURCES PROFESSOR documented as of this encounter Care Teams Home Coordinator Relationship Specialty Start Date End Date Osiris Otero APRN, C.N.P., R.N. [address] [place] [address] PCP - General Family Medicine 09/17/23 12/08/23 documented as of this encounter
== END 2024-02-13 08:15 | disposition home or self-care (01) ==
LOC: WOUND 08:14
PROVIDERS: PCP Family Medicine; Visit Provider Nurse Practitioner Family
DX: M86.68 Other chronic osteomyelitis, other site (principal); L89.314 Pressure ulcer of right buttock, stage 4; L89.153 Pressure ulcer of sacral region, stage 3; G82.20 Paraplegia, unspecified; Z99.3 Dependence on wheelchair
CPT/HCPCS: 11042; 11043; 96372; 97605; J0696

== ENCOUNTER 2024-02-20 08:13 | Outpatient (CLI) | payer MEDICARE, SELFPAY ==
--- OUTSIDE RECORDS SUMMARY | 2024-02-20 08:15 | XMS_ITS | Referral Summary ---
Author Name Unknown Organization [facility] Address [address] [place] [address] Care Team Providers Care Caustic Preparer Name Role Phone Elsewhere, Pcp Primary Care Provider Unavailabl e Source Comments Patient records contain information from all sites at [facility]. For routine questions regarding patient records, call [phone] during business hours, M-F 8:00 AM - 5:00 PM Central Time. Record requests for emergency care only can be directed to [phone] at any time.[facility] Encounters Date Type Department Care Team Description 12/01/2023 Orders Only Department of Physical Medicine and Rehabilitation in [place], [place] [address] [place] [address] Charlotte Craig, [facility]-ROT[facility] SOIL STABILIZER 12/01/2023 Clinical Communication Department of Pulmonary Medicine in [place], [place] [address] [place] [address] Mercy Poe, P.A.-C. 11/28/2023 Clinical Communication Senior Services in [place] [address] [place] [address] Haven Saxena, RCarleen 11/28/2023 4:00 PM [facility] External Outreach [facility] in [place] [address] [place] [phone] Osiris Otero, AMIRAH, C.N.P., R.N. 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 11/25/2023 Clinical Communication [facility] in [place] [address] [place] [address] Osiris Otero APRN, C.N.P., R.N. from Last [...] 09/19/2023 Hypertension Essential Primary 09/19/2023 Corticosteroid Treatment Ditching Machine Operator Systemic 05/2023 Paraplegia 09/19/2023 Osteoporosis [...] 0.6 oz pur e alcohol) [facility] Utilities Answer Date Recorded In the past 12 months has th e electric, gas, oil, or water [employer] threatened to shut off services in [...] Comments Blood Pressure 110/68 11/28/2023 8:43 AM [facility] Pulse 76 11/28/2023 8:43 AM [facility] Temperature 36.7 ??C (98 ??F) 11/28/2023 8:43 AM [facility] Respiratory Rate 18 11/28/2023 8:43 AM [facility] Oxygen Saturation 95% 11/28/2023 8:43 AM [facility] RA Inhaled Oxygen Concentration - - Weight 58.8 kg (129 lb 9.6 oz) 11/28/2023 8:43 A M [facility] Height 152 cm (4' 11.84) 10/19/2023 5:00 AM [facility] Body Mass Index 25.44 10/19/2023 5:00 AM [facility] Plan of Treatment Not on file Procedures Procedure Name Priority Date/Time Associated Diagnosis Comments BASIC METABOLIC PANEL, S/P Routine 11/04/2023 6:52 AM [facility] Hypokalemia from Last 3 Months or Most Recently Relevant to Health Maintenance Results * (ABNORMAL) Basic Metabolic Panel (11/04/2023 6:52 AM [facility]) Potassium, P 4.1 3.6 - 5.2 mmol/L 11/04/2023 8:14 AM [facility] NPRG Sodium, P 142 135 - 145 mmol/L 11/04/2023 8:14 AM [facility] NPRG Chloride, P 102 98 - 107 mmol/L 11/04/2023 8:14 AM [facility] NPRG Bicarbonate, P 30(H) 22 - 29 mmol/L 11/04/2023 8:14 AM [facility] NPRG Anion Gap, P 10 7 - 15 11/04/2023 8:14 AM [facility] NPRG BUN (Blood Urea Nitrogen), P 21 6 - 21 mg/dL 11/04/2023 8:14 AM [facility] NPRG Creatinine 0.28(L) 0.59 - 1.04 mg/dL 11/04/2023 8:14 AM [facility] NPRG Estimated GFR (eGFR) >90 >=60 mL/min/BSA 11/04/2023 8:14 AM [facility] Comment: Estimated GFR calculated using the 2020 CKD_EPI creatinine equation. Calcium, Total, P 9.1 8.8 - 10.2 mg/dL 11/04/2023 8:14 AM [facility] NPRG Glucose, P 79 70 - 140 mg/dL 11/04/2023 8:14 AM [facility] NPRG Blood (Blood, Venous) 11/04/2023 6:52 AM [facility] 11/04/2023 7:43 AM [facility] Osiris Otero APRN, C.N.P., R.N. LAB B LOOD ADD-ON [facility] [address] [place] [address], [place] NPRG [facility] [place] [address] [place] [address] from Last 3 Months or Most Recently Relevant to Health Maintenance Advance Directives For more information, please contact: [phone] Documents on File Type Date Recorded Patient Cotton Breeder Expl anation Advance Directives 09/19/2023 4:06 PM POLS T/MOLST * DNR/DNI (Latest Code Status on File) Date Activated Date Inactivated Comments 10/19/2023 6:50 PM 10/27/2023 4:16 PM * Full Code Date Activated Date Inactivated Comments 10/19/2023 2:13 AM 10/19/2023 6:50 PM Question Answer Comments Full Code: Discussed Care Teams Caustic Preparer Relationship Specialty Start Date End Date Elsewhere, Pcp PCP - General Internal Medicine 12/09/23
--- OUTSIDE RECORDS SUMMARY | 2024-02-20 08:15 | XMS_ITS | Encounter Summary ---
Author Name Unknown Organization [facility] Address [address] [place] [address] Care Team Providers Care Technical Support Specialist Name Role Phone Osiris Otero APRN, C.N.P., R.N. Primary Care Provider Encounter Details Date Type Department Care Team (Latest Contact Info) Description 11/28/2023 4:00 PM SENIOR QUALITY ASSURANCE ENGINEER External Outreach Senior Services in [place] [address] [place] [address] Osiris Otero APRN C.N.P., R.N. [address] [place] [phone] Chronic Diastolic (Congestive) Heart Failure (HCC) (Primary [...] = 0.6 oz pur e alcohol) [facility] Utilities Answer Date Recorded In the past 12 months has [employer], gas, oil, or water [employer] threatened to shut off services in your [...] your living situation today? I have a [facility] place to live 10/19/2023 Sex and Gender Information Value Date Recorded Sex Assigned at Not on file Gender Identity Not on file Sexual Orientation Not on file documented as of this encounter Last Filed Vital Signs Vital Sign Reading Time Taken Comments Blood Pressure 110/68 11/28/2023 8:43 AM SENIOR QUALITY ASSURANCE ENGINEER Pulse 76 11/28/2023 8:43 AM SENIOR QUALITY ASSURANCE ENGINEER Temperature 36.7 ??C (98 ??F) 11/28/2023 8:43 AM SENIOR QUALITY ASSURANCE ENGINEER Respiratory Rate 18 11/28/2023 8:43 AM SENIOR QUALITY ASSURANCE ENGINEER Oxygen Saturation 95% 11/28/2023 8:43 AM SENIOR QUALITY ASSURANCE ENGINEER RA Inhaled Oxygen Concentration - - Weight 58.8 kg (129 lb 9.6 oz) 11/28/2023 8:43 A M SENIOR QUALITY ASSURANCE ENGINEER Height - - Body Mass Index 25.44 10/19/2023 5:00 AM SENIOR QUALITY ASSURANCE ENGINEER documented in this encounter Progress Notes * Osiris Otero APRN, C.N.P., R.N. - 11/28/2023 4:00 PM CST CHIEF COMPLAINT / REASON FOR VISIT The resident is being seen at [place], [place] for Discharge H&P Visit Type: In Person Face-to- Face visit SUBJECTIVE HISTORY OF PRESENT ILLNESS Obtained from Patient, Nursing, and SBAR: SNF VISIT for Post Hospital Follow up Visit This resident was recently hospitalized at: [facility] Date of hospitalization: DATE OF ADMISSION: 10/19/2023 DATE OF DISCHARGE: 10/22/2023 Reason for hospitalization: Acute Respiratory Failure With Hypoxia Prior to hospitalization patient did receive levofloxacin for 5 days. On 10/18/2023 she developed fever, cough, shortness of breath hypoxia. She was transferred to [place]. Her MRSA swab returned positive, Infectious Disease [...] 15-30 seconds. Patient was previously hospitalized at [facility] from 08/28/2023 through 09/17/2023, she has a [...] obstructive sleep apnea. She is followed by [facility] wound care provider. Patient tested positive for COVID on 11/13/23. She said she had a day where she was very sleepy and acouple of days where she did not have much of an appetite. She did not receive any COVID therapies. Patient currently has wound VAC in place and will need to have this changed 3 times a week. She follows with the [facility]. She has a hospital bed [...] home health nursing and follow up with [facility]. Multivitamin, zinc. Oxycodone to 7.5 mg four times per day as needed for pain.Unsure of discharge date, will send #45 tablets of oxycodone to [facility] in [place] once discharge date is set. #2 Chronic Diastolic (Congestive) Heart Failure (HCC) Furosemide, metoprolol last echocardiogram was January 2023 with EF greater than 75% #4 Obstructive Sleep Apnea Goal is 88-90%, requires BiPAP when sleeping, BIPAP at night and when napping. 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 Will discontinue Tessalon Perles and decrease potassium [...] other IDT members. Total time 60 minutes. OR QUALITY ASSURANCE ENGINEER documented in this encounter Plan of [...] Time COVID19 11/13/2023 11/13/2023 12/03/2023 5:55 AM SENIOR QUALITY ASSURANCE ENGINEER documented as of this encounter Care Teams Technical Support Specialist Relationship Specialty Start Date End Date Osiris Otero APRN, C.N.P., R.N. [address] [place] [address] PCP - General Family Medicine 09/17/23 12/08/23 documented as of this encounter
--- OUTSIDE RECORDS SUMMARY | 2024-02-20 08:15 | XMS_ITS | Encounter Summary ---
Author Name Unknown Organization [facility] Address [address] [place] [address] Care Team Providers Care Coroner Transport Technician Name Role Phone Shanna Osiris Doe APRN C.N.Tia., R.N. Primary Care Provider Encounter Details Date Type Department Care Team (Late st Contact Info) Description 11/28/2023 Clinical Communication Senior Services in [place] [address] [place] [phone] Haven Saxena, R.N. Social History Tobacco Use Types Packs/Day Years Used Date Smoking Tobacco: Never Smokeless Tobacco: Never Alcohol Use Standard Drinks/Week Comments Defer 0 (1 standard drink = 0.6 oz pur e alcohol) [facility] Utilities Answer Date Recorded In the past [address] [facility] [employer], gas, oil, or water [employer] threatened to shut off services in your [...] your living situation today? I have a [facility] place to live 10/19/2023 Sex and [...] Time COVID19 11/13/2023 11/13/2023 12/03/2023 5:55 AM VACUUM WORKER documented as of this encounter Care Teams Coroner Transport Technician Relationship Specialty Start Date End Date Osiris Otero APRN, C.N.P., R.N. [address] [place] [address] PCP - General Family Medicine 09/17/23 12/08/23 documented as of this encounter
--- OUTSIDE RECORDS SUMMARY | 2024-02-20 08:15 | XMS_ITS | Encounter Summary ---
Author Name Unknown Organization [facility] Address [address] [place] [address] Care Team Providers Care Wire Brush Maker Name Role Phone Osiris Otero APRN, C.N.P., R.N. Primary Care Provider Encounter Details Date Type Department Care Team (Late st Contact Info) Description 11/26/2023 Documentation Senior Services in [place] [address] [place] [phone] Osiris Otero APRN, C.N.P., R.N. [address] [place] [phone] Social History Tobacco Use Types Packs/Day Years Used Date Smoking Tobacco: Never Smokeless Tobacco: Never Alcohol Use Standard Drinks/Week Comments Defer 0 (1 standard drink = 0.6 oz pur e alcohol) [facility] Utilities Answer Date Recorded In the past 12 months has [employer], gas, oil, or water [employer] threatened to shut off services in your [...] your living situation today? I have a [facility] place to live 10/19/2023 Sex and Gender Information Value Date Recorded Sex Assigned at Not on file Gender Identity Not on file Sexual Orientation Not on file documented as of this encounter Progress Notes * Sol Mills L.P.N. - 11/26/2023 12:25 PM CST Encounter created to enter external lab results. [employer] PLANT OPERATORS documented in this encounter Plan of Treatment Not on file documented as of this encounter Procedures Procedure Name Priority Date/Time Associated Diagnosis Comments EXTM HOME SARS CORONAVIRUS-2 (COVID-19) ANTIGEN, V Routine 11/13/2023 documented in this encounter Results * (ABNORMAL) EXT Home SARS Coronavirus-2 (COVID-19) Antigen (11/13/2023) EXT Home SARS-CoV-2 Antigen Presumptive Positive(A) Presumptive Negative OTHER (SPECIFY IN PERSONNEL ADMINISTRATOR) Swab 11/13/2023 Historical Provider LAB MICROBIOLOGY - G ENERAL ORDERABLES OTHER (SPECIFY IN PERSONNEL ADMINISTRATOR) N/A documented in this encounter Visit Diagnoses Not on filedocumented in this encounter Additional Health Concerns Infection Onset Date Last Indicated Resolved Time COVID19 11/13/2023 11/13/2023 12/03/2023 5:55 AM STATIONARY PLANT OPERATORS documented as of this encounter Care Teams Wire Brush Maker Relationship Specialty Start Date End Date Osiris Otero APRN, C.N.P., R.N. [address] [place] [phone] PCP - General Family Medicine 09/17/23 12/08/23 documented as of this encounter
--- OUTSIDE RECORDS SUMMARY | 2024-02-20 08:15 | XMS_ITS ---
Author Name Unknown Organization [facility] Address [address] [place] [address] Care Team Providers Care Linseed Oil Order Filler Name Role Phone Unavailable Unavailable Unavailable Surgery Details Not on file Complications Check Surgery Details section. Procedure Estimated Blood Loss Check Surgery Details section. Procedure Findings Check Surgery Details section. Procedure Specimens Taken Check Surgery Details section.
--- OUTSIDE RECORDS SUMMARY | 2024-02-20 08:15 | XMS_ITS | Encounter Summary ---
Author Name Unknown Organization [facility] Address [address] [place] [address] Care Team Providers Care Coin Wrapping Machine Operator Name Role Phone Elsewhere, Pcp Primary Care Provider Unavailabl e Encounter Details Date Type Department Care Team (Late st Contact Info) Description 12/01/2023 Clinical Communication Department of Pulmonary Medicine in [address] [phone] Mercy Poe P.A.-C. [address] [place] [phone] Social History Tobacco Use Types Packs/Day Years Used Date Smoking Tobacco: Never Smokeless Tobacco: Never Alcohol Use Standard Drinks/Week Comments Defer 0 (1 standard drink = 0.6 oz pur e alcohol) [facility] Utilities Answer Date Recorded In the past 12 months has [facility] [employer], gas, oil, or water [employer] threatened to shut off services [...] living situation today? I have a [facility] place to live 10/19/2023 Sex and Gender [...] Time COVID19 11/13/2023 11/13/2023 12/03/2023 5:55 AM BULL GANG SUPERVISOR documented as of this encounter Care Teams Coin Wrapping Machine Operator Relationship Specialty Start Date End Date Elsewhere, Pcp PCP - General Internal Medicine 12/09/23 documented as of this encounter
--- OUTSIDE RECORDS SUMMARY | 2024-02-20 08:15 | XMS_ITS | Encounter Summary ---
Author Name Unknown Organization [facility] Address [address] [place] [address] Care Team Providers Care Terminal Worker Name Role Phone Shanna Elizabeth Murcia APRNNJuan., R.N. Primary Care Provider Encounter Details Date Type Department Care Team (Late st Contact Info) Description 12/01/2023 Orders Only Department of Physical Medicine and Rehabilitation in [place], [place] [address] [place] [phone] Charlotte Craig, [facility] [address] [place] [address] Social History Tobacco Use Types Packs/Day Years Used Date Smoking Tobacco: Never Smokeless Tobacco: Never Alcohol Use Standard Drinks/Week Comments Defer 0 (1 standard drink = 0.6 oz pur e alcohol) [facility] Utilities Answer Date Recorded In the past 12 months has [employer], gas, oil, or water [employer] threatened to shut off services in [...] Time COVID19 11/13/2023 11/13/2023 12/03/2023 5:55 AM TRIPLE VALVE TESTER documented as of this encounter Care Teams Terminal Worker Relationship Specialty Start Date End Date Osiris Otero APRN, C.N.P., R.N. [address] [place] [address] PCP - General Family Medicine 09/17/23 12/08/23 documented as of this encounter
--- OUTSIDE RECORDS SUMMARY | 2024-02-20 08:15 | XMS_ITS | Clinical Summary ---
Author Name Unknown Organization [facility] Address [address] [place] [address] Care Team Providers Care Technical Services Librarian Name Role Phone Elsewhere, Pcp Primary Care Provider Unavailabl e Source Comments Patient records contain information from all sites at [facility]. For routine questions regarding patient records, call [phone] during business hours, M-F 8:00 AM - 5:00 PM Central Time. Record requests for emergency care only can be directed to [phone] at any time.[facility] Allergies Active Allergy Reactions Criticality Noted [...] 09/19/2023 Hypertension Essential Primary 09/19/2023 Corticosteroid Treatment Jail Systemic 05/2023 Paraplegia 09/19/2023 Osteoporosis 06/28/2021 Acute [...] Department of Physical Medicine and Rehabilitation in [place], [place] [address] [place] [phone] Charlotte Craig, [facility]-DIETARY SERVICES MANAGER 12/01/2023 Clinical Communication Department of Pulmonary Medicine in [place], [place] [address] [place] [phone] Mercy Poe P.A.-C. 11/28/2023 4:00 PM TRUCK REPAIR SUPERVISOR External Outreach Senior Services in [address] [phone] Osiris Otero APRN, C.N.P., R.N. Chronic Diastolic [...] Disorder 11/28/2023 Clinical Communication Senior Services in [address] [phone] Haven Saxena R.N. 11/26/2023 Documentation Senior Services in [address] [phone] Osiris Otero APRN, C.N.P., R.N. 11/25/2023 Clinical Communication Senior Services in [address] [phone] Osiris Otero APRN, C.N.P., R.N. from Last [...] = 0.6 oz pur e alcohol) [facility] Utilities Answer Date Recorded In the past 12 months has th e electric, gas, oil, or water [employer] threatened to shut off services in your [...] your living situation today? I have a [facility] place to live 10/19/2023 Sex and Gender Information Value Date Recorded Sex Assigned at Not on file Gender Identity Not on file Sexual Orientation Not on file Last Filed Vital Signs Vital Sign Reading Time Taken Comments Blood Pressure 110/68 11/28/2023 8:43 AM TRUCK REPAIR SUPERVISOR Pulse 76 11/28/2023 8:43 AM TRUCK REPAIR SUPERVISOR Temperature 36.7 ??C (98 ??F) 11/28/2023 8:43 AM TRUCK REPAIR SUPERVISOR Respiratory Rate 18 11/28/2023 8:43 AM TRUCK REPAIR SUPERVISOR Oxygen Saturation 95% 11/28/2023 8:43 AM TRUCK REPAIR SUPERVISOR RA Inhaled Oxygen Concentration - - Weight 58.8 kg (129 lb 9.6 oz) 11/28/2023 8:43 A M TRUCK REPAIR SUPERVISOR Height 152 cm (4' 11.84) 10/19/2023 5:00 AM TRUCK REPAIR SUPERVISOR Body Mass Index 25.44 10/19/2023 5:00 AM TRUCK REPAIR SUPERVISOR Plan of Treatment Health Maintenance Due [...] METABOLIC PANEL, S/P Routine 11/04/2023 6:52 AM TRUCK REPAIR SUPERVISOR Hypokalemia from Last 3 Months or Most Recently Relevant to Health Maintenance Results * (ABNORMAL) Basic Metabolic Panel (11/04/2023 6:52 AM TRUCK REPAIR SUPERVISOR) Potassium, P 4.1 3.6 - 5.2 mmol/L 11/04/2023 8:14 AM TRUCK REPAIR SUPERVISOR NPRG Sodium, P 142 135 - 145 mmol/L 11/04/2023 8:14 AM TRUCK REPAIR SUPERVISOR NPRG Chloride, P 102 98 - 107 mmol/L 11/04/2023 8:14 AM TRUCK REPAIR SUPERVISOR NPRG Bicarbonate, P 30(H) 22 - 29 mmol/L 11/04/2023 8:14 AM TRUCK REPAIR SUPERVISOR NPRG Anion Gap, P 10 7 - 15 11/04/2023 8:14 AM TRUCK REPAIR SUPERVISOR NPRG BUN (Blood Urea Nitrogen), P 21 6 - 21 mg/dL 11/04/2023 8:14 AM TRUCK REPAIR SUPERVISOR NPRG Creatinine 0.28(L) 0.59 - 1.04 mg/dL 11/04/2023 8:14 AM TRUCK REPAIR SUPERVISOR NPRG Estimated GFR (eGFR) >90 >=60 mL/min/BSA 11/04/2023 8:14 AM TRUCK REPAIR SUPERVISOR NPRG Comment: Estimated GFR calculated using the 2020 CKD_EPI creatinine equation. Calcium, Total, P 9.1 8.8 - 10.2 mg/dL 11/04/2023 8:14 AM TRUCK REPAIR SUPERVISOR NPRG Glucose, P 79 70 - 140 mg/dL 11/04/2023 8:14 AM TRUCK REPAIR SUPERVISOR NPRG Blood (Blood, Venous) 11/04/2023 6:52 AM TRUCK REPAIR SUPERVISOR 11/04/2023 7:43 AM TRUCK REPAIR SUPERVISOR Osiris Otero APRN C.N.P., R.N. LAB B LOOD ADD-ON [facility] [address] [place] [address], [facility] NPRG [facility] [address] [place] [address] from Last 3 Months or Most Recently Relevant to Health Maintenance Advance Directives For more information, please contact: [phone] Documents on File Type Date Recorded Patient Blind Installer Expl anation Advance Directives 09/19/2023 4:06 PM POLS T/MOLST * DNR/DNI (Latest Code Status on File) Date Activated Date Inactivated Comments 10/19/2023 6:50 PM 10/27/2023 4:16 PM * Full Code Date Activated Date Inactivated Comments 10/19/2023 2:13 AM 10/19/2023 6:50 PM Question Answer Comments Full Code: Discussed Care Teams Technical Services Librarian Relationship Specialty Start Date End Date Elsewhere, Pcp PCP - General Internal Medicine 12/09/23
--- OUTSIDE RECORDS SUMMARY | 2024-02-20 08:16 | XMS_ITS | Encounter Summary ---
Author Name Unknown Organization [facility] Address [address] [place] [address] Care Team Providers Care Clinical Informatics Manager Name Role Phone ShannaFransisca lopezOsirisdilcia Doe APRN, C.N.P., R.N. Primary Care Provider Encounter Details Date Type Department Care Team (Late st Contact Info) Description 10/13/2023 Clinical Communication Senior Services in [place] [address] [place] [address] Leatha Palacios APRN, C.N.P. [address] [place] [address] Social History Tobacco Use Types Packs/Day Years Used Date Smoking Tobacco: Never Smokeless Tobacco: Never Alcohol Use Standard Drinks/Week Comments Defer 0 (1 standard drink = 0.6 oz pur e alcohol) [facility] Utilities Answer Date Recorded In the past 12 months has [employer], gas, oil, or water [employer] threatened to shut off services in your [...] APRN, C.N.P. - 10/13/2023 1:54 PM CST senior care called with report that patient is coughing [...] doses. provider to re eval tomorrow. Call application development liaison provider if condition changes. AND HOUSING INVESTIGATOR documented in this encounter Plan of Treatment Not on file documented as of this encounter Visit Diagnoses Not on filedocumented in this encounter Additional Health Concerns Infection Onset Date Last Indicated Resolved Time COVID19 Pending 10/18/2023 10/18/2023 10/18/2023 9 :11 PM RENT AND HOUSING INVESTIGATOR documented as of this encounter Care Teams Clinical Informatics Manager Relationship Specialty Start Date End Date Osiris Otero APRN, C.N.P., R.N. [address] [place] [address] PCP - General Family Medicine 09/17/23 12/08/23 documented as of this encounter
--- OUTSIDE RECORDS SUMMARY | 2024-02-20 08:16 | XMS_ITS | Continuity of Care Document ---
Author Name Unknown Organization [facility] Address [address] [place] [address] Phone Care Team Providers Care Stamp Press Operator Name Role Phone Susan Guerrero Unavailable Unavail [...] Available - Active Procedures Procedure Date Office/Outpatient Visit,[facility] 2013 Advance Directives Directive Yes / No Effective Date File Name No Information Encounters Encounter Description Practice Location Reason(s) For Visit Diagnoses Date Provider Providers Copied on Encounter [facility], [address], [place], [place], [id number], [place] tel:[phone] [facility] No Information 6 Pandiscio Susan. [facility], [address] [place] [address], [address], [place], [place], [id number], [place]. tel:[phone] Office/Outpat ient Visit,[facility], [address], [place], [address], [place] tel:[phone] [facility] No Information 4 Pandiscio Susan. [facility], [address], [address], [place], [place], [id number], [place]. tel:[phone] Referring Provider: Freida Doe, [place] [address] [place], [address]. tel:[phone] Family History Family Member Type Diagnosis Age [...]
--- OUTSIDE RECORDS SUMMARY | 2024-02-20 08:16 | XMS_ITS | Encounter Summary ---
Author Name Unknown Organization [facility] Address [address] [place] [address] Care Team Providers Care Child And Adolescent Psychiatrist Name Role Phone Osiris Otero APRN, C.N.P., R.N. Primary Care Provider Reason for Visit * Reason Onset Date Comments Med Question 10/16/2023 Clarification ox ycodone Encounter Details Date Type Department Care Team (Latest Contact Info) Description 10/16/2023 Clinical Communication Senior Services in [place] [address] [place] [address] Osiris Otero APRN, C.N.P., R.N. [address] [place] [phone] Med Question (Clarification oxycodone) Social History Tobacco Use Types Packs/Day Years Used Date Smoking Tobacco: Never Smokeless Tobacco: Never Alcohol Use Standard Drinks/Week Comments Defer 0 (1 standard drink = 0.6 oz pur e alcohol) [facility] Utilities Answer Date Recorded In [...] for 5 mg four times daily prn ET RAILWAY LINE INSTALLER * Telephone Encounter - Haven Saxena R.N. - 10/16/2023 12:[address] RAILWAY LINE INSTALLER Called Elvi, she stated that on Rx instructions they do no have dose amount (5mg vs 10mg?, etc.) melonie given four times a day as needed. Please review and update ET RAILWAY LINE INSTALLER * Telephone Encounter - Shital Parish - 10/16/2023 12:22 PM CST MEDICATION QUESTION What is the patient's question? Recent changes Medication name/dose: oxyCODONE (ROXICODONE) 5 mg immediate release table What pharmacy are you using today? [facility] [address] [address] Additional comments (if any): Elvi from pharmacy is needing a clarification on the medication. Callback [phone] Special calling instructions: Ok to leave detailed message on voicemail? yes Portal: N/A ET RAILWAY LINE INSTALLER documented in this encounter Plan of Treatment Not on file documented as of this encounter Visit Diagnoses Not on filedocumented in this encounter Additional Health Concerns Infection Onset Date Last Indicated Resolved Time COVID19 Pending 10/18/2023 10/18/2023 10/18/2023 9 :[address] RAILWAY LINE INSTALLER documented as of this encounter Care Teams Child And Adolescent Psychiatrist Relationship Specialty Start Date End Date Osiris Otero APRN, C.N.P., R.N. [address] [place] [address] PCP - General Family Medicine 09/17/23 12/08/23 documented as of this encounter
--- OUTSIDE RECORDS SUMMARY | 2024-02-20 08:16 | XMS_ITS | Encounter Summary ---
Author Name Unknown Organization [facility] Address [address] [place] [address] Care Team Providers Care Guest Services Director Name Role Phone Elsewhere, Pcp Primary Care Provider Unavailabl e Encounter Details Date Type Department Care Team (Latest Contact Info) Description 10/18/2023 Intake [facility] Social History Tobacco Use Types Packs/Day Years Used Date Smoking Tobacco: Never Smokeless Tobacco: Never Alcohol Use Standard Drinks/Week Comments Defer 0 (1 standard drink = 0.6 oz pur e alcohol) [facility] Utilities Answer Date Recorded In the past 12 months has e electric, gas, oil, or water [employer] threatened to shut off services in [...] your living situation today? I have a [facility] place to live 10/19/2023 Sex and [...] Pending 10/18/2023 10/18/2023 10/18/2023 9 :11 PM ASSOCIATE AGENT INSURANCE SALES COVID19 11/13/2023 11/13/2023 12/03/2023 5:55 AM ASSOCIATE AGENT INSURANCE SALES documented as of this encounter Care Teams Guest Services Director Relationship Specialty Start Date End Date Elsewhere, Pcp PCP - General Internal Medicine 12/09/23 documented as of this encounter
--- OUTSIDE RECORDS SUMMARY | 2024-02-20 08:16 | XMS_ITS | Clinical Summary ---
Author Name Unknown Organization [facility] Address [place], [place] [address] Care Team Providers Care Statistical Clerk Name Role Phone Kallie Tamayo NP Unavailable [phone] [facility], [place] Unavailable [phone] Flo Mckeon MD Primary Care Provider [phone] Allergies No known active allergies Medications Medication [...] Influenza for age 65+ 06/13/2024 Care Teams Statistical Clerk Relationship Specialty Start Date End Date Flo Mckeon MD [address] [place] [phone] PCP - General Family Practice 10/04/21 Kallie Tamayo NP [address] [phone] Family Practice 01/17/14 [facility], [place] [address] [address] 01/29/14
--- OUTSIDE RECORDS SUMMARY | 2024-02-20 08:16 | XMS_ITS | Encounter Summary ---
Author Name Unknown Organization [facility] Address [address] [place] [address] Care Team Providers Care Sales Support Rep Name Role Phone Osiris Otero APRN, C.N.P., R.N. Primary Care Provider Encounter Details Date Type Department Care Team (Late st Contact Info) Description 11/25/2023 Clinical Communication Senior Services in [place] [address] [place] [phone] Osiris Otero APRN, C.N.P., R.N. [address] [place] [phone] Social History Tobacco Use Types Packs/Day Years Used Date Smoking Tobacco: Never Smokeless Tobacco: Never Alcohol Use Standard Drinks/Week Comments Defer 0 (1 standard drink = 0.6 oz pur e alcohol) [facility] Utilities Answer Date Recorded In the past 12 months has [employer] gas, oil, or water [employer] threatened to shut off services in your [...] your living situation today? I have a [facility] place to live 10/19/2023 Sex and [...] tablet Refill: 0 Please send half tablets. INUOUS IMPROVEMENT COACH documented in this encounter Plan of Treatment Not on file documented as of this encounter Visit Diagnoses Not on filedocumented in this encounter Care Teams Sales Support Rep Relationship Specialty Start Date End Date Osiris Otero APRN, C.N.P., R.N. [address] [place] [address] PCP - General Family Medicine 09/17/23 12/08/23 documented as of this encounter
--- OUTSIDE RECORDS SUMMARY | 2024-02-20 08:16 | XMS_ITS | Clinical Summary ---
Author Name Unknown Organization [facility] Address [address] [place] [address] Care Team Providers Care Lighthouse Keeper Name Role Phone Flo Mckeon MD Primary Care Provider + [phone] Source Comments You are receiving this document [...] for each transition of care or referral. [facility] Medications Medication Sig Dispensed Refills Start Date End Date Status acetaminophen (TYLENOL ARTHRITIS) 650 MG controlled release tablet as needed Active furosemide (LASIX) 20 MG tablet Daily 06/11/2021 Active diphenhydrAMINE-APAP 25-500 MG tablet Bedtime as needed A ctive predniSONE (DELTASONE) 5 MG tablet 10 mg daily. 06/11/2021 Active aspirin EC 81 MG enteric coated tablet Daily Act job pseudoephedrine ([id number]) 120 MG 12 hour release tablet Daily [...] - PCV) 12/31/2011 COVID-19 Vaccine (1 - season) 2023 Influenza (Season Ended) 2024 07/18/2009, 03/2009 DTaP/Tdap/Td (5 - Tdap) 04/22/2028 04/22/20 18, [...] Negative (Non Reactive) 06/28/2021 7:52 PM CDT [facility] Comment:Antibodies to HCV no t detected. Does not exclude the possiblity of exposure to HCV. Blood Venipuncture / Unknown 06/28/2021 2:27 PM CDT 06/28/2021 2:28 PM CDT Lorenza Q Black DO LAB_1 [facility] [address] [place], [place] [phone] [place] [address] from Last 3 Months or Most Recently Relevant to Health Maintenance Care Teams Lighthouse Keeper Relationship Specialty Start Date End Date Flo Mckeon MD [address] [place] [address] PCP - General 06/21/21
== END 2024-02-20 08:14 | disposition home or self-care (01) ==
LOC: WOUND 08:14
PROVIDERS: PCP Family Medicine; Visit Provider Nurse Practitioner Family
DX: L89.314 Pressure ulcer of right buttock, stage 4 (principal); L89.150 Pressure ulcer of sacral region, unstageable; G82.20 Paraplegia, unspecified; Z99.3 Dependence on wheelchair
CPT/HCPCS: 11042; 97605

== ENCOUNTER 2024-02-27 08:15 | Outpatient (CLI) | payer MEDICARE, SELFPAY ==
--- OUTSIDE RECORDS SUMMARY | 2024-02-27 08:16 | XMS_ITS | Clinical Summary ---
Author Name Unknown Organization [facility] Address [address] [place] [address] Care Team Providers Care Printer Slotter Feeder Name Role Phone Elsewhere, Pcp Primary Care Provider Unavailabl e Source Comments Patient records contain information from all sites at [facility]. For routine questions regarding patient records, call [phone] during business hours, M-F 8:00 AM - 5:00 PM Central Time. Record requests for emergency care only can be directed to [phone] at any time.[facility] Allergies Active Allergy Reactions Criticality Noted [...] Department of Physical Medicine and Rehabilitation in [place], [place] [address] [place] [address] Charlotte Craig, [facility] [employer] [employer] 12/01/2023 Clinical Communication Department of Pulmonary Medicine in [place], [place] [address] [place] [phone] [facility] P.A.-C. from Last 3 Months Immunizations Name Administration [...] drink = 0.6 oz pur e alcohol) [facility] Utilities Answer Date Recorded In the past 12 months has e [employer], gas, oil, or water [employer] threatened to shut off services in your [...] Comments Blood Pressure 110/68 11/28/2023 8:43 AM SCREEN PRINT OPERATOR Pulse 76 11/28/2023 8:43 AM SCREEN PRINT OPERATOR Temperature 36.7 ??C (98 ??F) 11/28/2023 8:43 AM SCREEN PRINT OPERATOR Respiratory Rate 18 11/28/2023 8:43 AM SCREEN PRINT OPERATOR Oxygen Saturation 95% 11/28/2023 8:43 AM SCREEN PRINT OPERATOR RA Inhaled Oxygen Concentration - - Weight 58.8 kg (129 lb 9.6 oz) 11/28/2023 8:43 A M SCREEN PRINT OPERATOR Height 152 cm (4' 11.84) 10/19/2023 5:00 AM SCREEN PRINT OPERATOR Body Mass Index 25.44 10/19/2023 5:00 AM SCREEN PRINT OPERATOR Plan of Treatment Health Maintenance Due Date [...] METABOLIC PANEL, S/P Routine 11/04/2023 6:52 AM SCREEN PRINT OPERATOR Hypokalemia from Last 3 Months or Most Recently Relevant to Health Maintenance Results * (ABNORMAL) Basic Metabolic Panel (11/04/2023 6:52 AM SCREEN PRINT OPERATOR) Potassium, P 4.1 3.6 - 5.2 mmol/L 11/04/2023 8:14 AM SCREEN PRINT OPERATOR NPRG Sodium, P 142 135 - 145 mmol/L 11/04/2023 8:14 AM SCREEN PRINT OPERATOR NPRG Chloride, P 102 98 - 107 mmol/L 11/04/2023 8:14 AM SCREEN PRINT OPERATOR NPRG Bicarbonate, P 30(H) 22 - 29 mmol/L 11/04/2023 8:14 AM SCREEN PRINT OPERATOR NPRG Anion Gap, P 10 7 - 15 11/04/2023 8:14 AM SCREEN PRINT OPERATOR NPRG BUN (Blood Urea Nitrogen), P 21 6 - 21 mg/dL 11/04/2023 8:14 AM SCREEN PRINT OPERATOR NPRG Creatinine 0.28(L) 0.59 - 1.04 mg/dL 11/04/2023 8:14 AM SCREEN PRINT OPERATOR NPRG Estimated GFR (eGFR) >90 >=60 mL/min/BSA 11/04/2023 8:14 AM SCREEN PRINT OPERATOR NPRG Comment: Estimated GFR calculated using the 2020 CKD_EPI creatinine equation. Calcium, Total, P 9.1 8.8 - 10.2 mg/dL 11/04/2023 8:14 AM SCREEN PRINT OPERATOR NPRG Glucose, P 79 70 - 140 mg/dL 11/04/2023 8:14 AM SCREEN PRINT OPERATOR NPRG Blood (Blood, Venous) 11/04/2023 6:52 AM SCREEN PRINT OPERATOR 11/04/2023 7:43 AM SCREEN PRINT OPERATOR Osiris Otero APRN, C.N.P., R.N. LAB B WILL ADD-ON [facility] [address] [place] [address], [facility] NPRG [facility] [address] [place] [address] from Last 3 Months or Most Recently Relevant to Health Maintenance Advance Directives For more information, please contact: [phone] Documents on File Type Date Recorded Patient Multiple Launch Rocket System Crewmember Expl anation Advance Directives 09/19/2023 4:06 PM POLS T/MOLST * DNR/DNI (Latest Code Status on File) Date Activated Date Inactivated Comments 10/19/2023 6:50 PM 10/27/2023 4:16 PM * Full Code Date Activated Date Inactivated Comments 10/19/2023 2:13 AM 10/19/2023 6:50 PM Question Answer Comments Full Code: Discussed Care Teams Printer Slotter Feeder Relationship Specialty Start Date End Date Elsewhere, Pcp PCP - General Internal Medicine 12/09/23
--- OUTSIDE RECORDS SUMMARY | 2024-02-27 08:16 | XMS_ITS ---
Author Name Unknown Organization [facility] Address [address] [place] [address] Care Team Providers Care Seconds Handler Name Role Phone Unavailable Unavailable Unavailable Surgery Details Not on file Complications Check Surgery Details section. Procedure Estimated Blood Loss Check Surgery Details section. Procedure Findings Check Surgery Details section. Procedure Specimens Taken Check Surgery Details section.
--- OUTSIDE RECORDS SUMMARY | 2024-02-27 08:16 | XMS_ITS | Referral Summary ---
Author Name Unknown Organization [facility] Address [address] [place] [address] Care Team Providers Care Document Control Supervisor Name Role Phone Elsewhere, Pcp Primary Care Provider Unavailabl e Source Comments Patient records contain information from all sites at [facility]. For routine questions regarding patient records, call [phone] during business hours, M-F 8:00 AM - 5:00 PM Central Time. Record requests for emergency care only can be directed to [phone] at any time.[facility] Encounters Date Type Department Care Team Description 12/01/2023 Orders Only Department of Physical Medicine and Rehabilitation in [place], [place] [address] [place] [phone] Charlotte Craig, [facility] OPERATOR 12/01/2023 Clinical Communication Department of Pulmonary Medicine in [place], [place] [address] [place] [phone] [facility] P[facility] P.A.-C. from Last 3 Months Allergies Active Allergy [...] 09/19/2023 Hypertension Essential Primary 09/19/2023 Corticosteroid Treatment Supervisor [employer] Production Systemic 05/2023 Paraplegia 09/19/2023 Osteoporosis 06/28/2021 Acute [...] = 0.6 oz pur e alcohol) [facility] Utilities Answer Date Recorded In the past 12 months has e [employer], gas, oil, or water [employer] threatened to shut off services in your [...] your living situation today? I have a [facility] place to live 10/19/2023 Sex and Gender Information Value Date Recorded Sex Assigned at Not on file Gender Identity Not on file Sexual Orientation Not on file Last Filed Vital Signs Vital Sign Reading Time Taken Comments Blood Pressure 110/68 11/28/2023 8:43 AM DOCUMENT IMPROVEMENT SPECIALIST Pulse 76 11/28/2023 8:43 AM DOCUMENT IMPROVEMENT SPECIALIST Temperature 36.7 ??C (98 ??F) 11/28/2023 8:43 AM DOCUMENT IMPROVEMENT SPECIALIST Respiratory Rate 18 11/28/2023 8:43 AM DOCUMENT IMPROVEMENT SPECIALIST Oxygen Saturation 95% 11/28/2023 8:43 AM DOCUMENT IMPROVEMENT SPECIALIST RA Inhaled Oxygen Concentration - - Weight 58.8 kg (129 lb 9.6 oz) 11/28/2023 8:43 A M DOCUMENT IMPROVEMENT SPECIALIST Height 152 cm (4' 11.84) 10/19/2023 5:00 AM DOCUMENT IMPROVEMENT SPECIALIST Body Mass Index 25.44 10/19/2023 5:00 AM DOCUMENT IMPROVEMENT SPECIALIST Plan of Treatment Not on file Procedures Procedure Name Priority Date/Time Associated Diagnosis Comments BASIC METABOLIC PANEL, S/P Routine 11/04/2023 6:52 AM DOCUMENT IMPROVEMENT SPECIALIST Hypokalemia from Last 3 Months or Most Recently Relevant to Health Maintenance Results * (ABNORMAL) Basic Metabolic Panel (11/04/2023 6:52 AM DOCUMENT IMPROVEMENT SPECIALIST) Potassium, P 4.1 3.6 - 5.2 mmol/L 11/04/2023 8:14 AM DOCUMENT IMPROVEMENT SPECIALIST NPRG Sodium, P 142 135 - 145 mmol/L 11/04/2023 8:14 AM DOCUMENT IMPROVEMENT SPECIALIST NPRG Chloride, P 102 98 - 107 mmol/L 11/04/2023 8:14 AM DOCUMENT IMPROVEMENT SPECIALIST NPRG Bicarbonate, P 30(H) 22 - 29 mmol/L 11/04/2023 8:14 AM DOCUMENT IMPROVEMENT SPECIALIST NPRG Anion Gap, P 10 7 - 15 11/04/2023 8:14 AM DOCUMENT IMPROVEMENT SPECIALIST NPRG BUN (Blood Urea Nitrogen), P 21 6 - 21 mg/dL 11/04/2023 8:14 AM DOCUMENT IMPROVEMENT SPECIALIST NPRG Creatinine 0.28(L) 0.59 - 1.04 mg/dL 11/04/2023 8:14 AM DOCUMENT IMPROVEMENT SPECIALIST NPRG Estimated GFR (eGFR) >90 >=60 mL/min/BSA 11/04/2023 8:14 AM DOCUMENT IMPROVEMENT SPECIALIST NPRG Comment: Estimated GFR calculated using the 2020 CKD_EPI creatinine equation. Calcium, Total, P 9.1 8.8 - 10.2 mg/dL 11/04/2023 8:14 AM DOCUMENT IMPROVEMENT SPECIALIST NPRG Glucose, P 79 70 - 140 mg/dL 11/04/2023 8:14 AM DOCUMENT IMPROVEMENT SPECIALIST NPRG Blood (Blood, Venous) 11/04/2023 6:52 AM DOCUMENT IMPROVEMENT SPECIALIST 11/04/2023 7:43 AM DOCUMENT IMPROVEMENT SPECIALIST Osiris Otero APRN, C.N.P., R.N. LAB B LOOD ADD-ON [facility] [address] [place] [address], [place] NPRG [facility] [address] [place] [address] from Last 3 Months or Most Recently Relevant to Health Maintenance Advance Directives For more information, please contact: [phone] Documents on File Type Date Recorded Patient Animal Scientist Expl anation Advance Directives 09/19/2023 4:06 PM POLS T/MOLST * DNR/DNI (Latest Code Status on File) Date Activated Date Inactivated Comments 10/19/2023 6:50 PM 10/27/2023 4:16 PM * Full Code Date Activated Date Inactivated Comments 10/19/2023 2:13 AM 10/19/2023 6:50 PM Question Answer Comments Full Code: Discussed Care Teams Document Control Supervisor Relationship Specialty Start Date End Date Elsewhere, Pcp PCP - General Internal Medicine 12/09/23
--- OUTSIDE RECORDS SUMMARY | 2024-02-27 08:16 | XMS_ITS | Encounter Summary ---
Author Name Unknown Organization [facility] Address [address] [place] [address] Care Team Providers Care Staff Certified Nurse Midwife Name Role Phone Osiris Otero APRN, C.N.P., R.N. Primary Care Provider Encounter Details Date Type Department Care Team (Latest Contact Info) Description 11/28/2023 4:00 PM COAL PIPELINE OPERATOR External Outreach Senior Services in [place] [address] [place] [address] Osiris Otero APRN C.N.P., R.N. [address] [place] [phone] Chronic Diastolic (Congestive) Heart Failure (HCC) (Primary [...] Recorded In the past 12 months has [employer], gas, oil, or water [employer] threatened to shut off services in your [...] today? I have a [facility] place to live 10/19/2023 Sex and Gender Information Value Date Recorded Sex Assigned at Not on file Gender Identity Not on file Sexual Orientation Not on file documented as of this encounter Last Filed Vital Signs Vital Sign Reading Time Taken Comments Blood Pressure 110/68 11/28/2023 8:43 AM COAL PIPELINE OPERATOR Pulse 76 11/28/2023 8:43 AM COAL PIPELINE OPERATOR Temperature 36.7 ??C (98 ??F) 11/28/2023 8:43 AM COAL PIPELINE OPERATOR Respiratory Rate 18 11/28/2023 8:43 AM COAL PIPELINE OPERATOR Oxygen Saturation 95% 11/28/2023 8:43 AM COAL PIPELINE OPERATOR RA Inhaled Oxygen Concentration - - Weight 58.8 kg (129 lb 9.6 oz) 11/28/2023 8:43 A M COAL PIPELINE OPERATOR Height - - Body Mass Index 25.44 10/19/2023 5:00 AM COAL PIPELINE OPERATOR documented in this encounter Progress Notes * Osiris Otero APRN, C.N.P., R.N. - 11/28/2023 4:00 PM CST CHIEF COMPLAINT / REASON FOR VISIT The resident is being seen at [place], [place] for Discharge H&P Visit Type: In Person Face-to- Face visit SUBJECTIVE HISTORY OF PRESENT ILLNESS Obtained from Patient, Nursing, and SBAR: SNF VISIT for Post Hospital Follow up Visit This resident was recently hospitalized at: [facility] Date of hospitalization: DATE OF ADMISSION: 10/19/2023 DATE OF DISCHARGE: 10/22/2023 Reason for hospitalization: Acute Respiratory Failure With Hypoxia Prior to hospitalization patient did receive levofloxacin for 5 days. On 10/18/2023 she developed fever, cough, shortness of breath hypoxia. She was transferred to [place]. Her MRSA swab returned positive, Infectious Disease [...] 15-30 seconds. Patient was previously hospitalized at [facility] from 08/28/2023 through 09/17/2023, she has a [...] obstructive sleep apnea. She is followed by [facility] wound care provider. Patient tested positive [...] times a week. She follows with the [facility]. She has a hospital bed at home with an air mattress. She alsohas a Dustin lift at home. She was previously living at home with family. Patient will discharge with home physical, occupational, speech and nursing and nursing service administrator. I personally reviewed the most recent following [...] home health nursing and follow up with [facility]. Multivitamin, zinc. Oxycodone to 7.5 mg four times per day as needed for pain.Unsure of discharge date, will send #45 tablets of oxycodone to [facility] in [place] once discharge date is set. #2 Chronic Diastolic (Congestive) Heart Failure (HCC) Furosemide, metoprolol last echocardiogram was January 2023 with EF greater than 75% #4 Obstructive Sleep Apnea Goal is 88-90%, requires BiPAP when sleeping, BIPAP at night and when napping. 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 Will discontinue Tessalon Perles and decrease potassium [...] other IDT members. Total time 60 minutes. PIPELINE OPERATOR documented in this encounter Plan of [...] Time COVID19 11/13/2023 11/13/2023 12/03/2023 5:55 AM COAL PIPELINE OPERATOR documented as of this encounter Care Teams Staff Certified Nurse Midwife Relationship Specialty Start Date End Date Osiris Otero APRN, C.N.P., R.N. [address] [place] [address] PCP - General Family Medicine 09/17/23 12/08/23 documented as of this encounter
--- OUTSIDE RECORDS SUMMARY | 2024-02-27 08:16 | XMS_ITS | Encounter Summary ---
Author Name Unknown Organization [facility] Address [address] [place] [address] Care Team Providers Care Associate Professor Of Geology Name Role Phone Shanna Osiris Doe APRN C.N.Tia., R.N. Primary Care Provider Encounter Details Date Type Department Care Team (Late st Contact Info) Description 11/28/2023 Clinical Communication Senior Services in [place] [address] [place] [phone] Haven Saxena, R.N. Social History Tobacco Use Types Packs/Day Years Used Date Smoking Tobacco: Never Smokeless Tobacco: Never Alcohol Use Standard Drinks/Week Comments Defer 0 (1 standard drink = 0.6 oz pur e alcohol) [facility] Utilities Answer Date Recorded In the past 12 months has [facility] [employer], gas, oil, or water [employer] threatened to shut off services in your [...] Time COVID19 11/13/2023 11/13/2023 12/03/2023 5:55 AM PRESIDENT AND CEO documented as of this encounter Care Teams Associate Professor Of Geology Relationship Specialty Start Date End Date Osiris Otero APRN, C.N.P., R.N. [address] [place] [address] PCP - General Family Medicine 09/17/23 12/08/23 documented as of this encounter
--- OUTSIDE RECORDS SUMMARY | 2024-02-27 08:16 | XMS_ITS | Encounter Summary ---
Author Name Unknown Organization [facility] Address [address] [place] [address] Care Team Providers Care Metal Wire Technician Name Role Phone Shanna Elizabeth Murcia APRNNJuan., R.N. Primary Care Provider Encounter Details Date Type Department Care Team (Late st Contact Info) Description 12/01/2023 Orders Only Department of Physical Medicine and Rehabilitation in [place], [place] [address] [place] [phone] Charlotte Craig, [facility]-TUBE CLEANING OPERATOR [address] [place] [address] Social History Tobacco Use Types Packs/Day Years Used Date Smoking Tobacco: Never Smokeless Tobacco: Never Alcohol Use Standard Drinks/Week Comments Defer 0 (1 standard drink = 0.6 oz pur e alcohol) [facility] Utilities Answer Date Recorded In the past 12 months has [employer], gas, oil, or water [employer] threatened to shut off services in your [...] Time COVID19 11/13/2023 11/13/2023 12/03/2023 5:55 AM REMARKETING REP documented as of this encounter Care Teams Metal Wire Technician Relationship Specialty Start Date End Date Osiris Otero APRN, C.N.P., R.N. [address] [place] [address] PCP - General Family Medicine 09/17/23 12/08/23 documented as of this encounter
--- OUTSIDE RECORDS SUMMARY | 2024-02-27 08:16 | XMS_ITS | Encounter Summary ---
Author Name Unknown Organization [facility] Address [address] [place] [address] Care Team Providers Care Brick Dropper Name Role Phone Elsewhere, Pcp Primary Care Provider Unavailabl e Encounter Details Date Type Department Care Team (Late st Contact Info) Description 12/01/2023 Clinical Communication Department of Pulmonary Medicine in [address] [phone] Mercy Poe P.A.-C. [address] [place] [phone] Social History Tobacco Use Types Packs/Day Years Used Date Smoking Tobacco: Never Smokeless Tobacco: Never Alcohol Use Standard Drinks/Week Comments Defer 0 (1 standard drink = 0.6 oz pur e alcohol) [facility] Utilities Answer Date Recorded In the past 12 months has [facility] [employer], gas, oil, or water [employer] threatened to shut off services in your [...] your living situation today? 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
--- OUTSIDE RECORDS SUMMARY | 2024-02-27 08:17 | XMS_ITS | Encounter Summary ---
Author Name Unknown Organization [facility] Address [address] [place] [address] Care Team Providers Care [place] Tower Loader Name Role Phone Osiris Otero APRN, C.N.P., R.N. Primary Care Provider Encounter Details Date Type Department Care Team (Late st Contact Info) Description 11/25/2023 Clinical Communication Senior Services in [place] [address] [place] [phone] Osiris Otero APRN, C.N.P., R.N. [address] [place] [phone] Social History Tobacco Use Types Packs/Day Years Used Date Smoking Tobacco: Never Smokeless Tobacco: Never Alcohol Use Standard Drinks/Week Comments Defer 0 (1 standard drink = 0.6 oz pur e alcohol) [facility] Utilities Answer Date Recorded In the past 12 months has [employer], gas, oil, or water [employer] threatened to shut off services in your [...] tablet Refill: 0 Please send half tablets. Y GUNNER documented in this encounter Plan of Treatment Not on file documented as of this encounter Visit Diagnoses Not on filedocumented in this encounter Care Teams [place] Tower Loader Relationship Specialty Start Date End Date Osiris Otero APRN, C.N.P., R.N. [address] [place] [address] PCP - General Family Medicine 09/17/23 12/08/23 documented as of this encounter
--- OUTSIDE RECORDS SUMMARY | 2024-02-27 08:17 | XMS_ITS | Continuity of Care Document ---
Author Name Unknown Organization [facility] Address [address] [place] [address] Phone Care Team Providers Care Environmental Programs Specialist Name Role Phone Susan Guerrero Unavailable [...] Available - Active Procedures Procedure Date Office/Outpatient Visit,[facility] 2013 Advance Directives Directive Yes / No Effective Date File Name No Information Encounters Encounter Description Practice Location Reason(s) For Visit Diagnoses Date Provider Providers Copied on Encounter [facility], [address], [place], [place], [id number], [place] tel:[phone] [facility] No Information [address] [facility], [address] [place] [address], [address], [place], [place], [id number], [place]. tel:[phone] Office/Outpat ient Visit,[facility], [address], [place], [address], [place] tel:[phone] [facility] No Information [address] [facility], [address], [address], [place], [place], [id number], [place]. tel:[phone] Referring Provider: Freida Doe, [place] [address] [place], [address]. tel:[phone] Family History Family Member Type Diagnosis Age [...]
--- OUTSIDE RECORDS SUMMARY | 2024-02-27 08:17 | XMS_ITS | Clinical Summary ---
Author Name Unknown Organization [facility] Address [place], [place] [address] Care Team Providers Care Dishwashing Machine Operator Name Role Phone Kallie Tamayo NP Unavailable [phone] [facility] [place] Unavailable [phone] Flo Mckeon MD Primary Care Provider [phone] Allergies No known active allergies Medications Medication [...] Influenza for age 65+ 06/13/2024 Care Teams Dishwashing Machine Operator Relationship Specialty Start Date End Date Flo Mckeon MD [address] [place] [phone] PCP - General Family Practice 10/04/21 Kallie Tamayo NP [address] [phone] Family Practice 01/17/14 [facility] [place] [address] [address] 01/29/14
--- OUTSIDE RECORDS SUMMARY | 2024-02-27 08:17 | XMS_ITS | Encounter Summary ---
Author Name Unknown Organization [facility] Address [address] [place] [address] Care Team Providers Care Staff Therapist Name Role Phone Elsewhere, Pcp Primary Care [...] has e electric, gas, oil, or water [employer] threatened to shut off services in [...] living situation today? I have a [facility] place to live 10/19/2023 Sex [...] Pending 10/18/2023 10/18/2023 10/18/2023 9 :11 PM TRANSPLANT NURSE PRACTITIONER COVID19 11/13/2023 11/13/2023 12/03/2023 5:55 AM TRANSPLANT NURSE PRACTITIONER documented as of this encounter Care Teams Staff Therapist Relationship Specialty Start Date End Date Elsewhere, Pcp PCP - General Internal Medicine 12/09/23 documented as of this encounter
--- OUTSIDE RECORDS SUMMARY | 2024-02-27 08:17 | XMS_ITS | Clinical Summary ---
Author Name Unknown Organization [facility] Address [address] [place] [address] Care Team Providers Care Helium Arc Welder Name Role Phone Flo Mckeon MD Primary Care Provider + [phone] Source Comments You are receiving this document [...] for each transition of care or referral. [facility] Medications Medication Sig Dispensed Refills Start Date End Date Status acetaminophen (TYLENOL ARTHRITIS) 650 MG controlled release tablet as needed Active furosemide (LASIX) 20 MG tablet Daily 06/11/2021 Active diphenhydrAMINE-APAP 25-500 MG tablet Bedtime as needed A ctive predniSONE (DELTASONE) 5 MG tablet 10 mg daily. 06/11/2021 Active aspirin EC 81 MG enteric coated tablet Daily Act job pseudoephedrine ([id number]) 120 MG 12 hour release tablet Daily [...] Negative (Non Reactive) 06/28/2021 7:52 PM CDT [facility] Comment:Antibodies to HCV no t detected. Does not exclude the possiblity of exposure to HCV. Blood Venipuncture / Unknown 06/28/2021 2:27 PM CDT 06/28/2021 2:28 PM CDT Lorenza Q Black DO LAB_1 [facility] [address] [place], [place] [id number] [place] [address] from Last 3 Months or Most Recently Relevant to Health Maintenance Care Teams Helium Arc Welder Relationship Specialty Start Date End Date Flo Mckeon MD [address] [place] [address] PCP - General 06/21/21
--- OUTSIDE RECORDS SUMMARY | 2024-02-27 08:17 | XMS_ITS | Encounter Summary ---
Author Name Unknown Organization [facility] Address [address] [place] [address] Care Team Providers Care Retail Department Reset Name Role Phone Osiris Otero APRN, C.N.P., R.N. Primary Care Provider Encounter Details Date Type Department Care Team (Late st Contact Info) Description 11/26/2023 Documentation [facility] [address] [place] [phone] Osiris Otero APRN, C.N.P., R.N. [address] [place] [phone] Social History Tobacco Use Types Packs/Day Years Used Date Smoking Tobacco: Never Smokeless Tobacco: Never Alcohol Use Standard Drinks/Week Comments Defer 0 (1 standard drink = 0.6 oz pur e alcohol) [facility] Utilities Answer Date Recorded In the past 12 months has [employer], gas, oil, or water [employer] threatened to shut off services in your [...] Encounter created to enter external lab results. NS PICKER documented in this encounter Plan of Treatment Not on file documented as of this encounter Procedures Procedure Name Priority Date/Time Associated Diagnosis Comments EXTM HOME SARS CORONAVIRUS-2 (COVID-19) ANTIGEN, V Routine 11/13/2023 documented in this encounter Results * (ABNORMAL) EXT Home SARS Coronavirus-2 (COVID-19) Antigen (11/13/2023) EXT Home SARS-CoV-2 Antigen Presumptive Positive(A) Presumptive Negative OTHER (SPECIFY IN PROFESSOR OF LANGUAGES) Swab 11/13/2023 Historical Provider LAB MICROBIOLOGY - G ENERAL ORDERABLES OTHER (SPECIFY IN PROFESSOR OF LANGUAGES) N/A documented in this encounter Visit Diagnoses Not on filedocumented in this encounter Additional Health Concerns Infection Onset Date Last Indicated Resolved Time COVID19 11/13/2023 11/13/2023 12/03/2023 5:55 AM [employer] documented as of this encounter Care Teams Retail Department Reset Relationship Specialty Start Date End Date Osiris Otero APRN, C.N.P., R.N. [address] [place] [phone] PCP - General Family Medicine 09/17/23 12/08/23 documented as of this encounter
== END 2024-02-27 08:16 | disposition home or self-care (01) ==
LOC: WOUND 08:15
PROVIDERS: PCP Family Medicine; Visit Provider Nurse Practitioner Family
DX: L89.314 Pressure ulcer of right buttock, stage 4 (principal); L89.150 Pressure ulcer of sacral region, unstageable; M86.68 Other chronic osteomyelitis, other site; G82.20 Paraplegia, unspecified; Z99.3 Dependence on wheelchair
CPT/HCPCS: 11042; 97605

== ENCOUNTER 2024-03-05 08:15 | Outpatient (CLI) | payer MEDICARE, SELFPAY ==
--- OUTSIDE RECORDS SUMMARY | 2024-03-18 12:15 | XMS_ITS | Clinical Summary ---
Author Organization [facility] Address [address] [place] [id number] Care Team Providers Care Scientific Programmer Analyst Name Role Phone Flo Mckeon MD Primary Care Provider [phone] Allergies Active Allergy Reactions Criticality Noted Date Comments Piperacillin Anaphylaxis High 03/06/2024 Tazobactam Anaphylaxis High 03/06/2024 Vancomycin Anaphylaxis High 03/06/2024 Medications Medication Sig Dispensed Refills Start Date End Date Status lactobacillus rhamnosus, GG, (CULTURELL) capsule Take 1 capsule by mouth daily Active acetaminophen (TYLENOL 8 HOUR ARTHRITIS PAIN) 650 MG CR tablet Take 1,300 mg by mouth 2 times daily as needed for mild pain or fever Active zinc sulfate (ZINCATE) 220 (50 Zn) MG capsule Take 220 mg by mouth every evening Active Ascorbic Acid (VITAMIN C PO) Take 1 tablet by mouth every evening Active naproxen sodium (ANAPROX) 220 MG tablet Take 220 mg by mouth daily (with breakfast) Active furosemide (LASIX) 20 MG tablet Take 20 mg by mouth daily Active gabapentin (NEURONTIN) 300 MG capsule Take 300 mg by mouth 3 times daily Active oxyCODONE (ROXICODONE) 5 MG tablet Take 7.5 mg by mouth every 4 hours as needed for severe pain Active potassium chloride telly ER (KLOR-CON M10) 10 MEQ CR tablet Take 20 mEq by mouth daily Active predniSONE (DELTASONE) 5 MG tablet Take 10 mg by mouth daily Active metoprolol succinate ER (TOPROL XL) 100 MG 24 hr tabletIndications: Septic shock (H) Take 1 tablet (100 mg) by mouth daily 30 tablet 03/15/20 24 Active levofloxacin (LEVAQUIN) 500 MG tabletIndications: Septic shock (H) Take 1 tablet (500 mg) by mouth daily for 10 days 10 tablet 03/14/20 24 Active PREDNISONE PO Take 5 mg by mouth daily Discontinued(Me d Rec(No AVS / No eCancel)) NONFORMULARY Uses Collagen Hydrogel Wound dressing to pressure sore daily. Discontinued(Me d Rec(No AVS / No eCancel)) pseudoePHEDrine (SUDAFED) 30 MG tablet Take 60 mg by mouth daily Discontinued IBUPROFEN PO Take 400 mg by mouth daily Discontinued HYDROcodone-acetam inophen (NORCO) 5-325 MG per tabletIndications: Chronic pain Take 1 tablet by mouth At Bedtime 28 tablet 12/16/19 14 Discontinued LORazepam (ATIVAN) 0.5 MG tabletIndications: Anxiety Take 1 tablet (0.5 mg) by mouth 2 times daily as needed for anxiety 20 tablet 0 12/16/19 14 Discontinued(Me d Rec(No AVS / No eCancel)) bisacodyl (DULCOLAX) 10 MG suppositoryIndicat ions:Constipation Place 1 suppository (10 mg) rectally daily as needed 15 suppository 12/16/19 14 Discontinued(Me d Rec(No AVS / No eCancel)) senna-docusate (SENOKOT-S;PERICOL MEGHAN) 8.6-50 MG per tabletIndications: Constipation Take 1 tablet by mouth 2 times daily 20 tablet 12/16/19 14 Discontinued(Me d Rec(No AVS / No eCancel)) polyethylene glycol (MIRALAX/GLYCOLAX) packetIndications: Constipation Take 17 g by mouth daily as needed 14 packet 12/16/19 14 Discontinued(Me d Rec(No AVS / No eCancel)) metoprolol (LOPRESSOR) 100 MG tabletIndications: Benign essential hypertension Take 0.5 tablets (50 mg) by mouth 2 times daily 60 tablet 0 12/16/19 14 Discontinued(Me d Rec(No AVS / No eCancel)) ondansetron (ZOFRAN-ODT) 4 MG disintegrating tabletIndications: Gram-positive bacteremia Take 1 tablet (4 mg) by mouth every 6 hours as needed for nausea 30 tablet 12/16/19 14 024 Discontinued(Me d Rec(No AVS / No eCancel)) metoprolol succinate ER (TOPROL XL) 50 MG 24 hr tablet Take 50 mg by mouth daily 024 Discontinued(St op at Discharge) Active Problems Problem Noted Date Diagnosed Date Paraplegia 03/06/2024 Elevated lactic acid level 03/06/2024 Fever in adult 03/06/2024 Septic shock 03/06/2024 Urinary tract infection without hematuria, site unspecified 03/06/2024 Pressure injury of skin, uns pecified injury stage, unspecified location 03/06/2024 UTI (urinary tract infection) 12/02/2013 SOB (shortness of breath) 12/02/2013 Pyelonephritis 12/02/2013 Resolved Problems Problem Noted Date Diagnosed Date Resolved Date yvon MEDIAL EPICONDYLITIS 02/13/200606/2006 yvon OTHER SYMPTOMS NERV/MUSC-SKEL SYSTM 02/13/2006 03/21/2006 Encounters Date Type Department Care Team Description 03/06/2024 12:34 AM CDT - 03/14/2024 5:17 PM CDT Hospital Encounter [place] [address] [facility] [address] [place] [address] Chago Velazquez MD Kriz, John Anthony, Pressure injury of right ischium, 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); Fever in adult; Septic shock (H); Urinary tract infection without hematuria, site unspecified; Elevated lactic acid level; 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; Paraplegia (H); Pressure injury of coccygeal region, 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] Discharge Disposition: Home-Health Care [facility] 03/06/2024 Travel from Last 3 Months Social History Tobacco Use Types Packs/Day Years Used Date Smoking Tobacco: Never Assessed Adolescent Education Answer Date Record ed Getting School Help Needed Not on file 08/28 Sex and Gender Information Value Date Recorded Sex Assigned at Not on file Gender Identity Not on file Sexual Orientation Not on file Last Filed Vital Signs Vital Sign Reading Time Taken Comments Blood Pressure 143/45 03/14/2024 8:11 AM CDT Pulse 107 03/14/2024 8:11 AM CDT Temperature 36.8 ??C (98.3 ??F) 03/14/2024 8:11 AM CD T Respiratory Rate 18 03/14/2024 8:11 AM CDT Oxygen Saturation 94% 03/14/2024 8:11 AM CDT Inhaled Oxygen Concentration - - Weight 65.3 kg (143 lb 15.4 oz) 03/14/2024 6:02 AM CDT Height 152.4 cm (5') 03/06/2024 8:15 AM CDT Body Mass Index 28.12 03/06/2024 8:15 AM CDT Plan of Treatment Health Maintenance Due Date Last Done Comments ADVANCE CARE PLANNING 1945 ANNUAL REVIEW OF HM ORDERS 1945 DEXA 1945 HEPATITIS C SCREENING 1964 LIPID 1986 ZOSTER IMMUNIZATION (1 of 2) 1996 RSV VACCINE ( & 60+) (1 - 1-dose 60+ series) 2006 FALL RISK ASSESSMENT 12/31/2011 MEDICARE ANNUAL WELLNESS VISIT 12/31/2011 Pneumococcal Vaccine: 65+ Years (1 of 1 - PCV) 12/31/2011 COVID-19 Vaccine ( - season) 2023 PHQ-2 (once per calendar year) 2023 INFLUENZA VACCINE (Season Ended) 2024 07/18/2009 GLUCOSE 03/14/2027 03/14/2024, 05/10/2023, 03/11/2024, Additional history exists DTAP/TDAP/TD IMMUNIZATION (2 - Td or Tdap) 04/22/2028 04/22/2018, 04/22/2015 HPV IMMUNIZATION Aged Out No longer e ligible based on patient's age to complete this topic IPV IMMUNIZATION Aged Out No longer e ligible based on patient's age to complete this topic MENINGITIS IMMUNIZATION Aged Out No l onger eligible based on patient's age to complete this topic RSV MONOCLONAL ANTIBODY Aged Out No l onger eligible based on patient's age to complete this topic Procedures Procedure Name Priority Date/Time Associated Diagnosis Comments CBC WITH PLATELETS Routine 03/14/2024 6: 02 AM CDT BASIC METABOLIC PANEL Routine 03/14/2024 6:02 AM CDT POTASSIUM Routine 03/13/2024 5:04 AM CDT EKG 12-LEAD, TRACING ONLY Routine 03/12/2024 11:32 AM CDT CBC WITH PLATELETS Routine 03/12/2024 6: 03 AM CDT BASIC METABOLIC PANEL Routine 03/12/2024 6:03 AM CDT CBC WITH PLATELETS Routine 03/11/2024 1: 51 PM CDT POTASSIUM Timed 03/11/2024 1:51 PM CDT BASIC METABOLIC PANEL Routine 03/11/2024 6:18 AM CDT CBC WITH PLATELETS Routine 03/10/2024 2: 59 PM CDT POTASSIUM Routine 03/10/2024 5:23 AM CDT POTASSIUM Routine 03/09/2024 6:16 AM CDT GLUCOSE BY METER Routine 03/09/2024 2:17 AM CDT POTASSIUM Routine 03/08/2024 9:21 AM CDT GLUCOSE BY METER Routine 03/08/2024 2:24 AM CDT LACTIC ACID WHOLE BLOOD WITH 1X REPEAT IN 2 HR WHEN >2 STAT 03/07/2024 6:54 PM CDT GLUCOSE BY METER Routine 03/07/2024 4:03 PM CDT GLUCOSE BY METER Routine 03/07/2024 12:1 3 PM CDT GLUCOSE BY METER Routine 03/07/2024 8:08 AM CDT HEMOGLOBIN A1C Add-On 03/07/2024 4:31 AM CDT COMPREHENSIVE METABOLIC PANEL Routine 03/07/2024 4:31 AM CDT CBC WITH PLATELETS Routine 03/07/2024 4: 31 AM CDT GLUCOSE BY METER Routine 03/07/2024 4:14 AM CDT POTASSIUM Timed 03/06/2024 9:46 PM CDT GLUCOSE BY METER Routine 03/06/2024 7:42 PM CDT BLOOD CULTURE STAT 03/06/2024 4:46 PM CDT BLOOD CULTURE STAT 03/06/2024 4:39 PM CDT GLUCOSE BY METER Routine 03/06/2024 4:06 PM CDT GLUCOSE BY METER Routine 03/06/2024 12:0 1 PM CDT COMPREHENSIVE METABOLIC PANEL Routine 03/06/2024 10:05 AM CDT GLUCOSE BY METER Routine 03/06/2024 7:58 AM CDT XR CHEST PORT 1 VIEW STAT 03/06/2024 5:12 AM CDT EKG 12-LEAD, TRACING ONLY STAT 03/06/2024 4:53 AM CDT LACTIC ACID WHOLE BLOOD STAT 03/06/2024 3:13 AM CDT URINE CULTURE Add-On 03/06/2024 2:54 AM CDT ROUTINE UA WITH MICROSCOPIC STAT 03/06/2024 2:54 AM CDT VERIGENE GN PANEL Routine 03/06/2024 1:5 5 AM CDT BLOOD CULTURE STAT 03/06/2024 1:55 AM CDT INFLUENZA A/B, RSV, & SARS-COV2 PCR STAT 03/06/2024 1:45 AM CDT XR CHEST PORT 1 VIEW STAT 03/06/2024 1:33 AM CDT BLOOD CULTURE STAT 03/06/2024 12:56 AM CDT CBC WITH PLATELETS & DIFFERENTIAL STAT 03/06/2024 12:52 AM CDT PROCALCITONIN STAT 03/06/2024 12:52 AM CDT EXTRA RED TOP TUBE STAT 03/06/2024 12 :52 AM CDT EXTRA BLUE TOP TUBE STAT 03/06/2024 1 2:52 AM CDT CBC WITH PLATELETS AND DIFFERENTIAL STAT 03/06/2024 12:52 AM CDT EXTRA TUBE STAT 03/06/2024 12:52 AM CDT LACTIC ACID WHOLE BLOOD WITH 1X REPEAT IN 2 HR WHEN >2 STAT 03/06/2024 12:52 AM CDT COMPREHENSIVE METABOLIC PANEL STAT 03/06/2024 12:52 AM CDT LAB RESULT - HIM SCAN 02/06/2024 12:00 AM CDT EKG CARDIAC - HIM SCAN 12:00 AM CDT from Last 3 Months Results * (ABNORMAL) Basic metabolic panel (03/14/2024 6:02 AM CDT) Only the most recent of3 resultswithin the time period is included. Sodium 140 135 - 145 mmol/L 03/14/2024 6:36 AM CDT LABORATORY Comment:Reference intervals for this test were updated on 07/08/2023 to more accurately reflect our healthy population. There may be differences in the flagging of prior results with similar values performed with this method. Interpretation of those prior results can be made in the context of the updated reference intervals. Potassium 3.7 3.4 - 5.3 mmol/L 03/14/2024 6:36 AM CDT LABORATORY Chloride 96(L) 98 - 107 mmol/L 03/14/2024 6:36 AM CDT LABORATORY Carbon Dioxide (CO2) 36(H) 22 - 29 mmol/L 03/14/2024 6:36 AM CDT LABORATORY Anion Gap 8 7 - 15 mmol/L 03/14/2024 6:36 AM CDT LABORATORY Urea Nitrogen 17.1 8.0 - 23.0 mg/dL 03/14/2024 6:36 AM CDT LABORATORY Creatinine 0.31(L) 0.51 - 0.95 mg/dL 03/14/2024 6:36 AM CDT LABORATORY GFR Estimate >90 >60 mL/min/1. 73m2 03/14/2024 6:36 AM CDT LABORATORY Calcium 8.6(L) 8.8 - 10.2 mg/dL 03/14/2024 6:36 AM CDT LABORATORY Glucose 95 70 - 99 mg/dL 03/14/2024 6:36 AM CDT LABORATORY Blood TOPOGRAPHY UNKNOWN / Unknown VAD(CVC, PICC) / Unknown 03/14/2024 6:02 AM CDT 03/14/2024 6:12 AM CDT Dain Barnes MD LAB - BLOOD ORDER TYRON LABORATORY [facility] [address] [facility], no room number) [place] [address], [facility] * (ABNORMAL) CBC with platelets (03/14/2024 6:02 AM CDT) Only the most recent of5 resultswithin the time period is included. WBC Count 15.5(H) 4.0 - 11.0 10e3/uL 03/14/2024 6:18 AM CDT [facility] LABORATORY RBC Count 3.85 3.80 - 5.20 10e6/uL 03/14/2024 6:18 AM CDT [facility] LABORATORY Hemoglobin 10.4(L) 11.7 - 15.7 g/dL 03/14/2024 6:18 AM CDT [facility] LABORATORY Hematocrit 34.0(L) 35.0 - 47.0 % 03/14/2024 6:18 AM CDT [facility] LABORATORY MCV 88 78 - 100 fL 03/14/2024 6:18 AM CDT [facility] LABORATORY MCH 27.0 26.5 - 33.0 pg 03/14/2024 6:18 AM CDT [facility] LABORATORY MCHC 30.6(L) 31.5 - 36.5 g/dL 03/14/2024 6:18 AM CDT [facility] LABORATORY RDW 17.9(H) 10.0 - 15.0 % 03/14/2024 6:18 AM CDT [facility] LABORATORY Platelet Count 330 150 - 450 10e3/uL 03/14/2024 6:18 AM CDT [facility] LABORATORY Blood TOPOGRAPHY UNKNOWN / Unknown VAD(CVC, PICC) / Unknown 03/14/2024 6:02 AM CDT 03/14/2024 6:12 AM CDT Dain Barnes MD LAB - BLOOD ORDER T[facility] LABORATORY [facility] [address] [facility] Lab (1st floor, no room number) [place] [address], [facility] * Potassium (03/13/2024 5:04 AM CDT) Only the most recent of6 resultswithin the time period is included. Potassium 3.9 3.4 - 5.3 mmol/L 03/13/2024 5:44 AM CDT [facility] LABORATORY Blood TOPOGRAPHY UNKNOWN / Unknown VAD(CVC, PICC) / Unknown 03/13/2024 5:04 AM CDT 03/13/2024 5:22 AM CDT Don Ramirez MD LAB - BLOOD ORDER TYRON Performing Organization Address City/[facility]/ZIP Co de Phone Number LABORATORY [facility] [address] Lab (1st floor, no room number) [place] [address] * EKG 12-lead, tracing only (03/12/2024 11:32 AM CDT) Only the most recent of2 resultswithin the time period is included. Systolic Blood Pressure mmHg RADIOLOGY RESULTS Diastolic Blood Pressure mmHg RADIOLOGY RESULTS Ventricular Rate 89 BPM RAD IOLOGY RESULTS Atrial Rate 89 BPM RADIOLOG Y RESULTS MO Interval 128 ms RADIOLOG Y RESULTS QRS Duration 118 ms RADIOLO GY RESULTS QT 376 ms RADIOLOGY RESULTS QTc 457 ms RADIOLOGY RESULTS P [place] 59 degrees RADIOLOGY RESULTS R AXIS 93 degrees RADIOLOGY RESULTS T [place] 53 degrees RADIOLOGY RESULTS Interpretation ECG Sinus rhythm Right bundle branch block Abnormal ECG When compared with ECG of 06-MAR-2024 04:53, Nonspecific T wave abnormality no longer evident in Inferior leads Confirmed by MD MCALLISTER MICHAEL ([id number]) on 03/12/2024 10:11:09 PM RADIOLOGY RESULTS 03/12/2024 11:3 2 AM CDT 03/12/2024 10:11 PM CDT Don Ramirez MD ECG ORDERABLES Performing Organization Address [facility] Co de Phone Number RADIOLOGY RESULTS * (ABNORMAL) Glucose by meter (03/09/2024 2:17 AM CDT) Only the most recent of10 resultswithin the time period is included. GLUCOSE BY METER POCT 171(H) 70 - 99 mg/dL 03/09/2024 2:29 AM CDT LABORATORY POC Blood, Capillary BLOOD SPECIMEN / Unknown 03/09/2024 2:17 AM CDT 03/09/2024 2:29 AM CDT Chago JACKSON - BEAKER POCT LABORATORY POC [facility] [address] Lab (1st floor, no room number) [place] [id number] [place] [address] * Lactic Acid Whole Blood w/ 1x repeat in 2 hrs when >2 (03/07/2024 6:54 PM CDT) Only the most recent of2 resultswithin the time period is included. Pathologist [facility] [place] Lactic Acid, Initial 1.9 0.7 - 2.0 mmol/L 03/07/2024 7:12 PM CDT LABORATORY Blood BLOOD SPECIMEN / Unknown VAD(CVC, PICC) / Unknown 03/07/2024 6:54 PM CDT 03/07/2024 7:10 PM CDT Apple Burt DO LAB - BLOOD O RDERABLES LABORATORY [facility] [address] Lab (1st floor, no room number) [address] * (ABNORMAL) Hemoglobin A1c (03/07/2024 4:31 AM CDT) [facility] Hemoglobin A1C 6.6(H) <5.7 % 03/09/2024 11:29 AM CDT LABORATORY Comment: Normal <5.7% Prediabetes 5.7-6.4% ?? Diabetes 6.5% or higher Note: Adopted from ADA consensus guidelines. Blood VENOUS LINE / Unknown VAD(CVC, PICC) / Unknown 03/07/2024 4:31 AM CDT 03/07/2024 4:36 AM CDT Chago Vicente DO LAB - BLOOD ORDERAB LES LABORATORY [facility] [address] Lab (1st floor, no room number) [address] * (ABNORMAL) Comprehensive metabolic panel (03/07/2024 4:31 AM CDT) Only the most recent of3 resultswithin the time period is included. Pathologist [facility] [place] Sodium 145 135 - 145 mmol/L 03/07/2024 5:25 AM CDT RH LABORATORY Comment:Reference intervals for this test were updated on 07/08/2023 to more accurately reflect our healthy population. There may be differences in the flagging of prior results with similar values performed with this method. Interpretation of those prior results can be made in the context of the updated reference intervals. Potassium 4.3 3.4 - 5.3 mmol/L 03/07/2024 5:25 AM CDT RH LABORATORY Carbon Dioxide (CO2) 23 22 - 29 mmol/L 03/07/2024 5:25 AM CDT RH LABORATORY Anion Gap 11 7 - 15 mmol/L 03/07/2024 5:25 AM CDT RH LABORATORY Urea Nitrogen 17.1 8.0 - 23.0 mg/dL 03/07/2024 5:25 AM CDT [facility] LABORATORY Creatinine 0.24(L) 0.51 - 0.95 mg/dL 03/07/2024 5:25 AM CDT RH LABORATORY GFR Estimate >90 >60 mL/min/1. 73m2 03/07/2024 5:25 AM CDT [facility] LABORATORY Calcium 8.1(L) 8.8 - 10.2 mg/dL 03/07/2024 5:25 AM CDT [facility] LABORATORY Chloride 111(H) 98 - 107 mmol/L 03/07/2024 5:25 AM CDT RH LABORATORY Glucose 131(H) 70 - 99 mg/dL 03/07/2024 5:25 AM CDT RH LABORATORY Alkaline Phosphatase 275(H) 40 - 150 U/L 03/07/2024 5:25 AM CDT [facility] LABORATORY AST 45 0 - 45 U/L 03/07/2024 5:25 AM CDT RH LABORATORY Comment:Reference intervals for this test were updated on 03/24/2023 to more accurately reflect our healthy population. There may be differences in the flagging of prior results with similar values performed with this method. Interpretation of those prior results can be made in the context of the updated reference intervals. ALT 62(H) 0 - 50 U/L 03/07/2024 5:25 AM CDT RH LABORATORY Comment:Reference intervals for this test were updated on 03/24/2023 to more accurately reflect our healthy population. There may be differences in the flagging of prior results with similar values performed with this method. Interpretation of those prior results can be made in the context of the updated reference intervals. Protein Total 5.0(L) 6.4 - 8.3 g/dL 03/07/2024 5:25 AM CDT [facility] LABORATORY Albumin 2.9(L) 3.5 - 5.2 g/dL 03/07/2024 5:25 AM CDT RH LABORATORY Bilirubin Total 0.2 <=1.2 mg/dL 03/07/2024 5:25 AM CDT RH LABORATORY Blood VENOUS LINE / Unknown VAD(CVC, PICC) / Unknown 03/07/2024 4:31 AM CDT 03/07/2024 4:36 AM CDT Apple Burt DO LAB - BLOOD O RDERABLES RH LABORATORY [facility] [address] Lab (1st floor, no room number) [place] [address], [facility] * Blood Culture Wrist, Left (03/06/2024 4:46 PM CDT) Only the most recent of4 resultswithin the time period is included. Culture No Growth 03/11/2024 6:46 PM CDT [facility] Blood STRUCTURE OF LEFT WRIST REGION / Unknown Venipuncture / Unknown 03/06/2024 4:46 PM CDT 03/06/2024 5:07 PM CDT Apple Burt DO LAB - MICRO G ENERAL ORDERABLES [facility]ORATORY [facility] Inf. Diseases Diag. Lab [address] [facility] [place] [address], [facility] * XR Chest Port 1 View (03/06/2024 5:12 AM CDT) Only the most recent of2 resultswithin the time period is included. Anatomical Region Laterality Modality Chest Digital Radiogra phy 03/06/2024 5:12 AM CDT Impressions 03/06/2024 5:16 AM CDT IMPRESSION: Interval placement of a right IJ central venous catheter which courses at least to the level of the superior cavoatrial junction but is partially obscured by overlapping metallic spinal hardware. Otherwise no interval change. Narrative 03/06/2024 5:16 AM CDT EXAM: XR CHEST PORT 1 VIEW LOCATION: [facility] DATE: 03/06/2024 INDICATION: central line confirmation of placement COMPARISON: 03/06/2024 1:28 AM Procedure Note Jeremiah Crocker MD - 03/06/2024 EXAM: XR CHEST PORT 1 VIEW LOCATION: [facility] DATE: 03/06/2024 INDICATION: central line confirmation of placement COMPARISON: 03/06/2024 1:28 AM IMPRESSION: Interval placement of a right IJ central venous catheter whichcourses at least to the level of the superior cavoatrial junction but ispartially obscured by overlapping metallic spinal hardware. Otherwise nointerval change. Chago Velazquez MD IMG DIAGNOSTIC IMAGI NG ORDERABLES * (ABNORMAL) Lactic acid whole blood (03/06/2024 3:13 AM CDT) Lactic Acid 2.1(H) 0.7 - 2.0 mmol/L 03/06/2024 3:18 AM CDT LABORATORY Blood BLOOD SPECIMEN / Unknown Venipuncture / Unknown 03/06/2024 3:13 AM CDT 03/06/2024 3:17 AM CDT Chago Velazquez MD LAB - BLOOD ORDERABL ES LABORATORY [facility] [address] Lab (1st floor, no room number) [place] [address], [facility] * (ABNORMAL) UA with Microscopic (03/06/2024 2:54 AM CDT) Color Urine Yellow Colorless, Straw, Light Yellow, Yellow 03/06/2024 4:11 AM CDT LABORATORY Appearance Urine Cloudy(A) Clear 05/25/20 24 4:11 AM CDT LABORATORY Glucose Urine Negative Negative mg/dL 03/06/2024 4:11 AM CDT LABORATORY Bilirubin Urine Negative Negative 4:11 AM CDT LABORATORY Ketones Urine Negative Negative mg/dL 03/06/2024 4:11 AM CDT LABORATORY Specific [place] Urine 1.018 1.003 - 1.035 03/06/2024 4:11 AM CDT LABORATORY Blood Urine Small(A) Negative 03/06/2024 4:11 AM CDT LABORATORY pH Urine 5.5 5.0 - 7.0 03/06/2024 4:11 AM CDT LABORATORY Protein Albumin Urine 100(A) Negative mg/dL 03/06/2024 4:11 AM CDT LABORATORY Urobilinogen Urine Normal Normal, 2.0 mg/dL 03/06/2024 4:11 AM CDT LABORATORY Nitrite Urine Positive(A) Negative 03/06/2024 4:11 AM CDT LABORATORY Leukocyte Esterase Urine Large(A) Negative 03/06/2024 4:11 AM CDT LABORATORY Bacteria Urine Few(A) None Seen /HPF 03/06/2024 4:11 AM CDT LABORATORY WBC Clumps Urine Present(A) None Seen /HPF 03/06/2024 4:11 AM CDT LABORATORY Mucus Urine Present(A) None Seen /LPF 03/06/2024 4:11 AM CDT LABORATORY RBC Urine 17(H) <=2 /HPF 03/06/2024 4:11 AM CDT LABORATORY WBC Urine >182(H) <=5 /HPF 03/06/2024 4:11 AM CDT LABORATORY Squamous Epithelials Urine 2(H) <=1 /HPF 03/06/2024 4:11 AM CDT LABORATORY Hyaline Casts Urine 4(H) <=2 /LPF 03/06/2024 4:11 AM CDT LABORATORY Urine URINE SPECIMEN FROM URINARY CONDUIT / Unknown Non-blood Collection / Unknown 03/06/2024 2:54 AM CDT 03/06/2024 2:59 AM CDT Chago Velazquez MD LAB - URINE ORDERABL ES [facility] Lab [address] [facility] Lab (1st floor, no room number) [place] [address], [facility] * (ABNORMAL) Urine Culture (03/06/2024 2:54 AM CDT) Culture >100,000 CFU/mL Escherichia coli(A) DAWSON 03/08/2024 8:46 PM CDT [facility] Culture 50,000-100,000 CFU/mL Escherichia coli(A) 03/08/2024 8:46 PM CDT [facility] Urine URINE SPECIMEN FROM URINARY CONDUIT / Unknown Non-blood Collection / Unknown 03/06/2024 2:54 AM CDT 03/06/2024 2:59 AM CDT Narrative Organism Antibiotic Method Susceptibility Escherichia coli Ampicillin DAWSON >=32 ug/mL: Resistant Escherichia coli Ampicillin/ Sulbactam DAWSON >=32 ug/mL: Resistant Escherichia coli Piperacillin/Tazobactam DAWSON <=4 ug/mL: Susceptible Escherichia coli Cefazolin DAWSON <=4 ug/mL: Susceptible Comment:Cefazolin NV C breakpoints are for the treatment of uncomplicated urinary tract infections. For the treatment of systemic infections, please contact the laboratory for additional testing. Escherichia coli Cefoxitin DAWSON <=4 ug/mL: Susceptible Escherichia coli Ceftazidime DAWSON <=1 ug/mL: Susceptible Escherichia coli Ceftriaxone DAWSON <=1 ug/mL: Susceptible Escherichia coli Cefepime DAWSON <=1 ug/mL: Susceptible Escherichia coli Gentamicin DAWSON <=1 ug/mL: Susceptible Escherichia coli Tobramycin DAWSON <=1 ug/mL: Susceptible Escherichia coli Ciprofloxacin DAWSON >=4 ug/mL: Resistant Escherichia coli Levofloxacin DAWSON >=8 ug/mL: Resistant Escherichia coli Nitrofurantoin DAWSON <=16 ug/mL: Susceptible Escherichia coli Trimethoprim/Sulfamethoxazole DAWSON <=1/19 ug/mL: Susceptible Escherichia coli Ampicillin DAWSON >=32 ug/mL: Resistant Escherichia coli Ampicillin/ Sulbactam DAWSON >=32 ug/mL: Resistant Escherichia coli Piperacillin/Tazobactam DAWSON <=4 ug/mL: Susceptible Escherichia coli Cefazolin DAWSON 8 ug/mL: Susceptible Comment:Cefazolin NV C breakpoints are for the treatment of uncomplicated urinary tract infections. For the treatment of systemic infections, please contact the laboratory for additional testing. Escherichia coli Cefoxitin DAWSON <=4 ug/mL: Susceptible Escherichia coli Ceftazidime DAWSON <=1 ug/mL: Susceptible Escherichia coli Ceftriaxone DAWSON <=1 ug/mL: Susceptible Escherichia coli Cefepime DAWSON <=1 ug/mL: Susceptible Escherichia coli Gentamicin DAWSON <=1 ug/mL: Susceptible Escherichia coli Tobramycin DAWSON <=1 ug/mL: Susceptible Escherichia coli Ciprofloxacin DAWSON >=4 ug/mL: Resistant Escherichia coli Levofloxacin DAWSON >=8 ug/mL: Resistant Escherichia coli Nitrofurantoin DAWSON <=16 ug/mL: Susceptible Escherichia coli Trimethoprim/Sulfamethoxazole DAWSON <=1/19 ug/mL: Susceptible Chago Velazquez MD LAB - MICRO GENERAL ORDERABLES [facility] [place] [facility] Lab [address] [facility], [address] [place] [address] * (ABNORMAL) Verigene GN Panel (03/06/2024 1:55 AM CDT) Pathologist [facility] [place] Acinetobacter species Not Detected Not Detected 03/06/2024 5:46 PM CDT [facility] Citrobacter species Not Detected Not Detected 03/06/2024 5:46 PM CDT [facility] Enterobacter species Not Detected Not Detected 03/06/2024 5:46 PM CDT [facility] Proteus species Not Detected Not Detected 03/06/2024 5:46 PM CDT [facility] Escherichia coli Detected(A) Not Detected 03/06/2024 5:46 PM CDT [facility] Comment:Positive for Escheri moody coli by Verigene multiplex nucleic acid test. Final identification and antimicrobial susceptibility testing will be verified by standard methods. Verigene test will not distinguish E. coli from Shigella species including Shigella dysenteriae, Shigella flexneri, Shigella boydii, and Shigella sonnei. Specimens containing Shigella species or E. coli will be reported as positive for E. coli. Klebsiella pneumoniae Not Detected Not Detected 03/06/2024 5:46 PM CDT [facility] Klebsiella oxytoca Not Detected Not Detected 03/06/2024 5:46 PM CDT [facility] Pseudomonas aeruginosa Not Detected Not Detected 03/06/2024 5:46 PM CDT [facility] CTX-M Not Detected Not Detected, NA 03/06/2024 5:46 PM CDT [facility] KPC Not Detected Not Detected, NA 03/06/2024 5:46 PM CDT [facility] NDM Not Detected Not Detected, NA 03/06/2024 5:46 PM CDT [facility] VIM Not Detected Not Detected, NA 03/06/2024 5:46 PM CDT [facility] IMP Not Detected Not Detected, NA 03/06/2024 5:46 PM CDT [facility] OXA Not Detected Not Detected, NA 03/06/2024 5:46 PM CDT [facility] Blood STRUCTURE OF LEFT HAND / Unknown Venipuncture / Unknown 03/06/2024 1:55 AM CDT 03/06/2024 1:59 AM CDT Narrative [facility] - 03/06/2024 5:46 PM CDT Specimen tested with Vhalligene multiplex, gram-negative blood culture nucleic acid test for the following targets: Acinetobacter species, Citrobacter species, Enterobacter species, Proteus species, Escherichia coli, Klebsiella pneumoniae, Klebsiella oxytoca, Pseudomonas aeruginosa, and the following resistance markers: CTX-M, KPC, NDM, VIM, IMP and OXA. Chago Velazquez MD LAB - MICRO GENERAL ORDERABLES [facility] Inf. Diseases Diag. Lab [address] [facility], [address] [place] [id number] * Symptomatic Influenza A/B, RSV, & SARS-CoV2 PCR (COVID-19) Nose (03/06/2024 1:45 AM CDT) Pathologist [facility] [place] Influenza A PCR Negative Negative 03/06/2024 2:28 AM CDT [facility] Influenza B PCR Negative Negative 03/06/2024 2:28 AM CDT [facility] RSV PCR Negative Negative 03/06/2024 2:28 AM CDT [facility] SARS CoV2 PCR Negative Negative 03/06/2024 2:28 AM CDT [facility] Comment:NEGATIVE: SARS-CoV-2 (COVID-19) RNA not detected, presumed negative. Swab NASAL STRUCTURE / Unknown Non-blood Collection / Unknown 03/06/2024 1:45 AM CDT 03/06/2024 1:48 AM CDT Narrative LABORATORY - 03/06/2024 2:28 AM CDT Testing was performed using the Xpert Xpress CoV2/Flu/RSV Assay on the [employer] GeneXpert Instrument. This test should be ordered for the detection of SARS-CoV-2, influenza, and RSV viruses in individuals who meet clinical and/or epidemiological criteria. Test performance is unknown in asymptomatic patients. This test is for in vitro diagnostic use under the FDA EUA for laboratories certified under CLIA to perform high or moderate complexity testing. This test has not been FDA cleared or approved. A negative result does not rule out the presence of PCR inhibitors in the specimen or target RNA in concentration below the limit of detection for the assay. If only one viral target is positive but coinfection with multiple targets is suspected, the sample should be re-tested with another FDA cleared, approved, or authorized test, if coinfection would change clinical management. This test was validated by the [facility] [employer]. These laboratories are certified under the Clinical Laboratory Improvement Amendments of 1988 (CLIA-88) as qualified to perform high complexity laboratory testing. Chago Velazquez MD LAB - MICRO GENERAL ORDERABLES Performing Organization Address City/[facility]/ZIP Co de Phone Number [facility] [address] Lab (1st floor, no room number) [place] [address] * Extra Red Top Tube (03/06/2024 12:52 AM CDT) Pathologist [facility] [place] Hold Specimen [facility] 03/06/2024 2:01 AM CDT LABORATORY Blood BLOOD SPECIMEN / Unknown Venipuncture / Unknown 03/06/2024 12:52 AM CDT 03/06/2024 12:59 AM CDT hCago Velazquez MD LAB - BLOOD ORDERABL ES [facility] [address] Lab (1st floor, no room number) [place] [address] * Extra Blue Top Tube (03/06/2024 12:52 AM CDT) Hold Specimen [facility] 03/06/2024 2:01 AM CDT [facility] Blood BLOOD SPECIMEN / Unknown Venipuncture / Unknown 03/06/2024 12:52 AM CDT 03/06/2024 12:59 AM CDT Chago Velazquez MD LAB - BLOOD ORDERABL ES [facility] [address] Lab (1st floor, no room number) [place] [phone] * (ABNORMAL) CBC with platelets and differential (03/06/2024 12:52 AM CDT) [facility] WBC Count 26.2(H) 4.0 - 11.0 10e3/uL 03/06/2024 1:01 AM CDT [facility] RBC Count 3.86 3.80 - 5.20 10e6/uL 03/06/2024 1:01 AM CDT [facility] Hemoglobin 10.5(L) 11.7 - 15.7 g/dL 03/06/2024 1:01 AM CDT [facility] Hematocrit 34.4(L) 35.0 - 47.0 % 03/06/2024 1:01 AM CDT [facility] MCV 89 78 - 100 fL 03/06/2024 1:01 AM CDT [facility] MCH 27.2 26.5 - 33.0 pg 03/06/2024 1:01 AM CDT [facility] MCHC 30.5(L) 31.5 - 36.5 g/dL 03/06/2024 1:01 AM CDT [facility] RDW 17.4(H) 10.0 - 15.0 % 03/06/2024 1:01 AM CDT [facility] Platelet Count 321 150 - 450 10e3/uL 03/06/2024 1:01 AM CDT [facility] % Neutrophils 91 % 03/06/2024 1:01 AM CDT [facility] % Lymphocytes 4 % 03/06/2024 1:01 AM CDT [facility] % Monocytes 3 % 03/06/2024 1:01 AM CDT [facility] % Eosinophils 0 % 03/06/2024 1:01 AM CDT [facility] % Basophils 0 % 03/06/2024 1:01 AM CDT [facility] % Immature Granulocytes 2 % 03/06/2024 1:01 AM CDT [facility] NRBCs per 100 WBC 0 <1 /100 024 1:01 AM CDT [facility] Absolute Neutrophils 23.8(H) 1.6 - 8.3 10e3/uL 03/06/2024 1:01 AM CDT [facility] Absolute Lymphocytes 1.1 0.8 - 5.3 10e3/uL 03/06/2024 1:01 AM CDT [facility] Absolute Monocytes 0.7 0.0 - 1.3 10e3/uL 03/06/2024 1:01 AM CDT [facility] Absolute Eosinophils 0.1 0.0 - 0.7 10e3/uL 03/06/2024 1:01 AM CDT [facility] Absolute Basophils 0.1 0.0 - 0.2 10e3/uL 03/06/2024 1:01 AM CDT [facility] Absolute Immature Granulocytes 0.5(H) <=0.4 10e3/uL 03/06/2024 1:01 AM CDT [facility] Absolute NRBCs 0.0 10e3/uL 03/06/2024 1:01 AM CDT [facility] Blood BLOOD SPECIMEN / Unknown Venipuncture / Unknown 03/06/2024 12:52 AM CDT 03/06/2024 12:59 AM CDT Chago Velazquez MD LAB - BLOOD ORDERABL ES [facility] LAB[facility]AT[facility] [address] ([facility], no room number) [place] [address] * (ABNORMAL) Procalcitonin (03/06/2024 12:52 AM CDT) Procalcitonin 2.44(H) <0.50 ng/mL 03/06/2024 1:41 AM CDT LABORATORY Comment: Interpretation and Recommendations <0.5 ng/mL: Systemic bacterial infection unlikely. Local bacterial infection is possible. 0.5-1.99 ng/mL: Systemic bacterial infection possible, but various other conditions are known to induce PCT as well. >=2.00 ng/mL: Systemic bacterial infection likely, unless other causes are known. Decision to start antibiotics should not be based on procalcitonin level alone. See Procalcitonin Guidance document for more details. [email or web address] Factors that may affect PCT levels (not all-inclusive): ?? - Increased PCT level ?Severe trauma/huff ?Invasive surgery ?Cooling therapy after cardiac arrest/surgery ?Treatment with agents which stimulate cytokines ?Acute kidney injury ?Chronic kidney disease and end stage renal disease ?Acute graft vs host disease ?Non-specific shock causing decreased organ perfusion and/or infarction ?? - Normal or unchanged PCT level ?Early in infections (if low and infection is suspected, repeating in 6-12 hours is recommended) ?Chronic infections (endocarditis, osteomyelitis, prosthetic device/graft infections) ?Localized infections (cellulitis, wound infections, intra-abdominal abscess) Note: PCT has not been extensively studied in /, pediatrics, severe immunosuppression, and cystic fibrosis. Blood BLOOD SPECIMEN / Unknown Venipuncture / Unknown 03/06/2024 12:52 AM CDT 03/06/2024 12:59 AM CDT Chago Velazquez MD LAB - BLOOD ORDERABL ES LABORATORY [facility] [address] [facility] ([facility]st floor, no room number) [place] [address], [facility] * Lab Result - HIM Scan (02/06/2024 12:00 AM CDT) 02/06/2024 Provider Outside NON-BEAKER LAB TE STING * EKG Cardiac - HIM Scan (01/16/2024 12:00 AM CDT) 01/16/2024 Provider Outside ECG ORDERABLES from Last 3 Months Additional Health Concerns Infection Onset Date 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 Intubation to prevent or reverse respiratory instability may be performed. Question Answer Comments Code status determined by: Discussion with patie nt/ legal decision maker * Full Code Date Activated Date Inactivated Comments 12/02/2013 2:28 PM 12/15/2013 6:18 PM Care Teams Scientific Programmer Analyst Relationship Specialty Start Date End Date Flo Mckeon MD [facility] - [address] [address] PCP - General Family Medicine 03/09/24
--- OUTSIDE RECORDS SUMMARY | 2024-03-18 12:15 | XMS_ITS | Referral Summary ---
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); Fever in adult; Septic shock (H); Urinary tract infection without hematuria, site unspecified; Elevated lactic acid level; 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; Paraplegia (H); Pressure injury of coccygeal region, 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] [place] [facility] [place] Travel from Last 3 Months Allergies Active Allergy [...] mouth At Bedtime 28 tablet 12/16/19 14 024 Discontinued LORazepam (ATIVAN) 0.5 MG tabletIndications: Anxiety Take 1 tablet (0.5 mg) by mouth 2 times daily as needed for anxiety 20 tablet 0 12/16/19 14 Discontinued(Me d Rec(No AVS / No eCancel)) bisacodyl (DULCOLAX) 10 MG suppositoryIndicat ions:Constipation Place 1 suppository (10 mg) rectally daily as needed 15 suppository 12/16/19 14 024 Discontinued(Me d Rec(No AVS / No eCancel)) senna-docusate (SENOKOT-S;PERICOL MEGHAN) 8.6-50 MG per tabletIndications: Constipation Take 1 tablet by mouth 2 times daily 20 tablet 12/16/19 14 024 Discontinued(Me d Rec(No AVS / No eCancel)) polyethylene glycol (MIRALAX/GLYCOLAX) packetIndications: Constipation Take 17 g by mouth daily as needed 14 packet 12/16/19 14 024 Discontinued(Me d Rec(No AVS / No eCancel)) metoprolol (LOPRESSOR) 100 MG tabletIndications: Benign essential hypertension Take 0.5 tablets (50 mg) by mouth 2 times daily 60 tablet 0 12/16/19 14 024 Discontinued(Me d Rec(No AVS [...] yvon OTHER SYMPTOMS NERV/MUSC-SKEL SYSTM 02/13/2006 03/21/2006 Social History Tobacco Use Types Packs/Day Years [...] 03/06/2024 8:15 AM CDT Plan of Treatment Not on file Procedures [...] of3 resultswithin the time period is included. [facility] Sodium 140 135 - 145 mmol/L 03/14/2024 6:36 AM CDT [facility] Comment:Reference intervals for this test were updated on 07/08/2023 to more accurately reflect our healthy population. There may be differences in the flagging of prior results with similar values performed with this method. Interpretation of those prior results can be made in the context of the updated reference intervals. Potassium 3.7 3.4 - 5.3 mmol/L 03/14/2024 6:36 AM CDT [facility] Chloride 96(L) 98 - 107 mmol/L 03/14/2024 6:36 AM CDT [facility] Carbon Dioxide (CO2) 36(H) 22 - 29 mmol/L 03/14/2024 6:36 AM CDT [facility] Anion Gap 8 7 - 15 mmol/L 03/14/2024 6:36 AM CDT [facility] Urea Nitrogen 17.1 8.0 - 23.0 mg/dL 03/14/2024 6:36 AM CDT [facility] Creatinine 0.31(L) 0.51 - 0.95 mg/dL 03/14/2024 6:36 AM CDT [facility] GFR Estimate >90 >60 mL/min/1. 73m2 03/14/2024 6:36 AM CDT [facility] Calcium 8.6(L) 8.8 - 10.2 mg/dL 03/14/2024 6:36 AM CDT [facility] Glucose 95 70 - 99 mg/dL 03/14/2024 6:36 AM CDT [facility] Blood TOPOGRAPHY UNKNOWN / Unknown VAD(CVC, PICC) / Unknown 03/14/2024 6:02 AM CDT 03/14/2024 6:12 AM CDT Dain Barnes MD LAB - BLOOD ORDER TYRON [facility] [address] [facility] (1st floor, no room number) [place] [address], [facility] * (ABNORMAL) CBC with platelets (03/14/2024 6:02 [...] Barnes MD LAB - BLOOD ORDER TYRON Performing Organization Address City/[facility]/ZIP Co de Phone Number [facility] [address] [facility], no room number[facility] [address] * Potassium (03/13/2024 5:04 AM CDT) Only the most recent of6 resultswithin the time period is included. Potassium 3.9 3.4 - 5.3 mmol/L 03/13/2024 5:44 AM CDT LABORATORY Blood TOPOGRAPHY UNKNOWN / Unknown VAD(CVC, PICC) / Unknown 03/13/2024 5:04 AM CDT 03/13/2024 5:22 AM CDT Don Ramirez MD LAB - BLOOD ORDER TYRON Performing Organization Address [facility] Co de Phone Number [facility] [address] [facility] (1[facility], no room number) [place] [phone] * EKG 12-lead, tracing only (03/12/2024 11:32 AM CDT) Only the most recent of2 resultswithin the time period is included. Systolic Blood Pressure mmHg RADIOLOGY RESULTS Diastolic Blood Pressure mmHg RADIOLOGY RESULTS Ventricular Rate 89 BPM RAD IOLOGY RESULTS Atrial Rate 89 BPM RADIOLOG Y RESULTS AL Interval 128 ms RADIOLOG Y RESULTS QRS Duration 118 ms RADIOLO GY RESULTS QT 376 ms RADIOLOGY RESULTS QTc 457 ms RADIOLOGY RESULTS P [place] 59 degrees RADIOLOGY RESULTS R AXIS 93 degrees RADIOLOGY RESULTS T [place] 53 degrees RADIOLOGY RESULTS Interpretation ECG Sinus rhythm Right bundle branch block Abnormal ECG When compared with ECG of 06-MAR-2024 04:53, Nonspecific T wave abnormality no longer evident in Inferior leads Confirmed by MD ESVIN, KERI ([id number]) on 03/12/2024 10:11:09 PM RADIOLOGY RESULTS 03/12/2024 11:3 2 AM CDT 03/12/2024 10:11 PM CDT Don Ramirez MD ECG ORDERABLES RADIOLOGY RESULTS * (ABNORMAL) Glucose by meter (03/09/2024 2:17 AM CDT) Only the most recent of10 resultswithin the time period is included. GLUCOSE BY METER POCT 171(H) 70 - 99 mg/dL 03/09/2024 2:29 AM CDT LABORATORY POC Blood, Capillary BLOOD SPECIMEN / Unknown 03/09/2024 2:17 AM CDT 03/09/2024 2:29 AM CDT Chago Vicente DO LAB - BEAKER POCT Performing Organization Address [facility] Co de Phone Number LABORATORY POC [facility] [address] Lab (1st floor, no room number) [address] * Lactic Acid Whole Blood w/ 1x repeat in 2 hrs when >2 (03/07/2024 6:54 PM CDT) Only the most recent of2 resultswithin the time period is included. Lactic Acid, Initial 1.9 0.7 - 2.0 mmol/L 03/07/2024 7:12 PM CDT LABORATORY Blood BLOOD SPECIMEN / Unknown VAD(CVC, PICC) / Unknown 03/07/2024 6:54 PM CDT 03/07/2024 7:10 PM CDT Apple Burt DO LAB - BLOOD O RDERABLES Performing Organization Address City/[facility]/ZIP Co de Phone Number LABORATORY [facility] Lab [address] Lab (1st floor, no room number) [address] * (ABNORMAL) Hemoglobin A1c (03/07/2024 4:31 AM CDT) Hemoglobin A1C 6.6(H) <5.7 % 03/09/2024 11:29 AM CDT [facility] Comment: Normal <5.7% Prediabetes 5.7-6.4% ?? Diabetes 6.5% or higher Note: Adopted from ADA consensus guidelines. Blood VENOUS LINE / Unknown VAD(CVC, PICC) / Unknown 03/07/2024 4:31 AM CDT 03/07/2024 4:36 AM CDT Chago Musa Jules DO LAB - BLOOD ORDERAB LES LABORATORY [facility] Lab [address] [facility] Lab (1st floor, no room number) [place] [address] * (ABNORMAL) Comprehensive metabolic panel (03/07/2024 4:31 AM CDT) Only the most recent of3 resultswithin the time period is included. Sodium 145 135 - 145 mmol/L 03/07/2024 5:25 AM CDT LABORATORY Comment:Reference intervals for this test were updated on 07/08/2023 to more accurately reflect our healthy population. There may be differences in the flagging of prior results with similar values performed with this method. Interpretation of those prior results can be made in the context of the updated reference intervals. Potassium 4.3 3.4 - 5.3 mmol/L 03/07/2024 5:25 AM CDT LABORATORY Carbon Dioxide (CO2) 23 22 - 29 mmol/L 03/07/2024 5:25 AM CDT LABORATORY Anion Gap 11 7 - 15 mmol/L 03/07/2024 5:25 AM CDT LABORATORY Urea Nitrogen 17.1 8.0 - 23.0 mg/dL 03/07/2024 5:25 AM CDT LABORATORY Creatinine 0.24(L) 0.51 - 0.95 mg/dL 03/07/2024 5:25 AM CDT LABORATORY GFR Estimate >90 >60 mL/min/1. 73m2 03/07/2024 5:25 AM CDT LABORATORY Calcium 8.1(L) 8.8 - 10.2 mg/dL 03/07/2024 5:25 AM CDT LABORATORY Chloride 111(H) 98 - 107 mmol/L 03/07/2024 5:25 AM CDT LABORATORY Glucose 131(H) 70 - 99 mg/dL [...] LAB - BLOOD O RDERABLES [facility] [address] [facility] ([facility], no room number) [place] [address], [facility] * Blood Culture Wrist, Left (03/06/2024 4:46 PM CDT) Only the most recent of4 resultswithin the time period is included. Culture No Growth 03/11/2024 6:46 PM CDT [facility] Blood STRUCTURE OF LEFT WRIST REGION / Unknown Venipuncture / Unknown 03/06/2024 4:46 PM CDT 03/06/2024 5:07 PM CDT Apple Burt DO LAB - MICRO G ENERAL ORDERABLES [facility] Inf. Diseases Diag. Lab [address] [facility] [place] [phone] * XR Chest Port 1 View (03/06/2024 [...] EXAM: XR CHEST PORT 1 VIEW LOCATION: [facility] DATE: 03/06/2024 INDICATION: central line confirmation of placement COMPARISON: 03/06/2024 1:28 AM Procedure Note Jeremiah Crocker MD - 03/06/2024 EXAM: XR CHEST PORT 1 VIEW LOCATION: [facility] DATE: 03/06/2024 INDICATION: central line confirmation [...] LAB - BLOOD ORDERABL ES [facility] LAB[facility]ATORY [facility] [address] Lab (1st floor, no room number) [place] [address], [facility] * (ABNORMAL) UA with Microscopic (03/06/2024 2:54 AM CDT) Color Urine Yellow Colorless, Straw, Light Yellow, Yellow 03/06/2024 4:11 AM CDT LABORATORY Appearance Urine Cloudy(A) Clear 03/06/20 4:11 AM CDT LABORATORY Glucose Urine Negative Negative mg/dL 03/06/2024 4:11 AM CDT LABORATORY Bilirubin Urine Negative Negative 4:11 AM CDT LABORATORY Ketones Urine Negative Negative mg/dL 03/06/2024 4:11 AM CDT LABORATORY Specific [place] Urine 1.018 1.003 - 1.035 03/06/2024 4:11 [...] None Seen /LPF 03/06/2024 4:11 AM CDT [facility] RBC Urine 17(H) <=2 /HPF 03/06/2024 4:11 AM CDT [facility] WBC Urine >182(H) <=5 /HPF 03/06/2024 4:11 AM CDT [facility] Squamous Epithelials Urine 2(H) <=1 /HPF 03/06/2024 4:11 AM CDT [facility] Hyaline Casts Urine 4(H) <=2 /LPF 03/06/2024 4:11 AM CDT [facility] Urine URINE SPECIMEN FROM URINARY CONDUIT / Unknown Non-blood Collection / Unknown 03/06/2024 2:54 AM CDT 03/06/2024 2:59 AM CDT Chago Velazquez MD LAB - URINE ORDERABL ES LABORATORY [facility] [address] [facility] Lab (1st floor, no room number) [place] [address] * (ABNORMAL) Urine Culture (03/06/2024 2:54 AM CDT) [facility] Culture >100,000 CFU/mL Escherichia coli(A) DAWSON 03/08/2024 [...] - MICRO GENERAL ORDERABLES [facility] Inf. Diseases Diag. Lab [address] [facility] [place] [address], [facility] * (ABNORMAL) Verigene GN Panel (03/06/2024 1:55 AM CDT) Acinetobacter species Not Detected Not Detected 03/06/2024 [...] 03/06/2024 5:46 PM CDT Specimen tested with Verigene multiplex, gram-negative blood culture nucleic acid test for the following targets: Acinetobacter species, Citrobacter species, Enterobacter species, Proteus species, Escherichia coli, Klebsiella pneumoniae, Klebsiella oxytoca, Pseudomonas aeruginosa, and the following resistance markers: CTX-M, KPC, NDM, VIM, IMP and OXA. Chago Velazquez MD LAB - MICRO GENERAL ORDERABLES [facility] Inf. Diseases Diag. Lab [address] [facility] [place] [address], [facility] * Symptomatic Influenza A/B, RSV, & SARS-CoV2 PCR (COVID-19) Nose (03/06/2024 1:45 AM CDT) Influenza A PCR Negative Negative 03/06/2024 2:28 [...] AM CDT 03/06/2024 1:48 AM CDT Narrative [facility] - 03/06/2024 2:28 AM CDT Testing was performed using the Xpert Xpress CoV2/Flu/RSV Assay on the [employer] GeneXpert Instrument. This test should be ordered [...] management. This test was validated by the [facility]. These laboratories are certified under the Clinical Laboratory Improvement Amendments of 1988 (CLIA-88) as qualified to perform high complexity laboratory testing. Chago Velazquez MD LAB - MICRO GENERAL ORDERABLES [facility] Lab [address] Lab (1st floor, no room number) [address] * Extra Red Top Tube (03/06/2024 12:52 AM CDT) Hold Specimen [facility] 03/06/2024 2:01 AM CDT [facility] Blood BLOOD SPECIMEN / Unknown Venipuncture / Unknown 03/06/2024 12:52 AM CDT 03/06/2024 12:59 AM CDT Chago Velazquez MD LAB - BLOOD ORDERABL ES Performing Organization Address City/[facility]/ZIP Co de Phone Number [facility] Care Lab [address] Lab (1st floor, no room number) [address] * Extra Blue Top Tube (03/06/2024 12:52 AM CDT) Hold Specimen [facility] 03/06/2024 2:01 AM CDT [facility] Blood BLOOD SPECIMEN / Unknown Venipuncture / Unknown 03/06/2024 12:52 AM CDT 03/06/2024 12:59 AM CDT Chago Velazquez MD LAB - BLOOD ORDERABL ES Performing Organization Address City/[facility]/ZIP Co de Phone Number [facility] Lab [address] Lab (1st floor, no room number) [address] * (ABNORMAL) CBC with platelets and differential (03/06/2024 12:52 AM CDT) WBC Count 26.2(H) 4.0 - 11.0 10e3/uL [...] NRBCs 0.0 10e3/uL 03/06/2024 1:01 AM CDT LABORATORY Blood BLOOD SPECIMEN / Unknown Venipuncture / Unknown 03/06/2024 12:52 AM CDT 03/06/2024 12:59 AM CDT Chago Velazquez MD LAB - BLOOD ORDERABL ES LABORATORY [facility] Lab [address] [facility] Lab (1st floor, no room number) [place] [address] * (ABNORMAL) Procalcitonin (03/06/2024 12:52 AM CDT) [...] See Procalcitonin Guidance document for more details. [email or web address] Factors that may affect PCT levels (not [...] Velazquez MD LAB - BLOOD ORDERABL ES [facility] Lab [address] 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
--- OUTSIDE RECORDS SUMMARY | 2024-03-18 12:16 | XMS_ITS | Clinical Summary ---
Author Organization [facility] Address [address] [place] [address] Care Team Providers Care Technical Implementation Lead Name Role Phone Elsewhere, Pcp Primary Care Provider Unavailabl e Source Comments Patient records contain information from all sites at [facility]. For routine questions regarding patient records, call [phone] during business hours, M-F 8:00 AM - 5:00 PM Central Time. Record requests for emergency care only can be directed to [phone] at any time.[facility] Allergies Active Allergy Reactions Criticality Noted Date [...] 09/19/2023 Hypertension Essential Primary 09/19/2023 Corticosteroid Treatment [facility] 05/2023 Paraplegia 09/19/2023 Osteoporosis 06/28/2021 Acute [...] situation today? I have a [facility] place to live 10/19/2023 Sex and Gender Information Value Date Recorded Sex Assigned at Not on file Gender Identity Not on file Sexual Orientation Not on file Last Filed Vital Signs Vital Sign Reading Time Taken Comments Blood Pressure 110/68 11/28/2023 8:43 AM INTEGRATED MARKETING SPECIALIST Pulse 76 11/28/2023 8:43 AM INTEGRATED MARKETING SPECIALIST Temperature 36.7 ??C (98 ??F) 11/28/2023 8:43 AM INTEGRATED MARKETING SPECIALIST Respiratory Rate 18 11/28/2023 8:43 AM INTEGRATED MARKETING SPECIALIST Oxygen Saturation 95% 11/28/2023 8:43 AM INTEGRATED MARKETING SPECIALIST RA Inhaled Oxygen Concentration - - Weight 58.8 kg (129 lb 9.6 oz) 11/28/2023 8:43 A M INTEGRATED MARKETING SPECIALIST Height 152 cm (4' 11.84) 10/19/2023 5:00 AM INTEGRATED MARKETING SPECIALIST Body Mass Index 25.44 10/19/2023 5:00 AM INTEGRATED MARKETING SPECIALIST Plan of Treatment Health Maintenance Due Date [...] METABOLIC PANEL, S/P Routine 11/04/2023 6:52 AM INTEGRATED MARKETING SPECIALIST Hypokalemia from Last 3 Months or Most Recently Relevant to Health Maintenance Results * (ABNORMAL) Basic Metabolic Panel (11/04/2023 6:52 AM INTEGRATED MARKETING SPECIALIST) Potassium, P 4.1 3.6 - 5.2 mmol/L 11/04/2023 8:14 AM INTEGRATED MARKETING SPECIALIST NPRG Sodium, P 142 135 - 145 mmol/L 11/04/2023 8:14 AM INTEGRATED MARKETING SPECIALIST NPRG Chloride, P 102 98 - 107 mmol/L 11/04/2023 8:14 AM INTEGRATED MARKETING SPECIALIST NPRG Bicarbonate, P 30(H) 22 - 29 mmol/L 11/04/2023 8:14 AM INTEGRATED MARKETING SPECIALIST NPRG Anion Gap, P 10 7 - 15 11/04/2023 8:14 AM INTEGRATED MARKETING SPECIALIST NPRG BUN (Blood Urea Nitrogen), P 21 6 - 21 mg/dL 11/04/2023 8:14 AM INTEGRATED MARKETING SPECIALIST NPRG Creatinine 0.28(L) 0.59 - 1.04 mg/dL 11/04/2023 8:14 AM INTEGRATED MARKETING SPECIALIST NPRG Estimated GFR (eGFR) >90 >=60 mL/min/BSA 11/04/2023 8:14 AM INTEGRATED MARKETING SPECIALIST NPRG Comment: Estimated GFR calculated using the 2020 CKD_EPI creatinine equation. Calcium, Total, P 9.1 8.8 - 10.2 mg/dL 11/04/2023 8:14 AM INTEGRATED MARKETING SPECIALIST NPRG Glucose, P 79 70 - 140 mg/dL 11/04/2023 8:14 AM INTEGRATED MARKETING SPECIALIST NPRG Blood (Blood, Venous) 11/04/2023 6:52 AM INTEGRATED MARKETING SPECIALIST 11/04/2023 7:43 AM INTEGRATED MARKETING SPECIALIST Osiris Otero APRN, C.N.P., R.N. LAB B LOOD ADD-ON [facility] [address] [place] [address], [facility] NPRG [facility] [address] [place] [address] from Last 3 Months or Most Recently Relevant to Health Maintenance Advance Directives For more information, please contact: [phone] Documents on File Type Date Recorded Patient I&C Technician Expl anation Advance Directives 09/19/2023 4:06 PM POLS T/MOLST * DNR/DNI (Latest Code Status on File) Date Activated Date Inactivated Comments 10/19/2023 6:50 PM 10/27/2023 4:16 PM * Full Code Date Activated Date Inactivated Comments 10/19/2023 2:13 AM 10/19/2023 6:50 PM Question Answer Comments Full Code: Discussed Care Teams Technical Implementation Lead Relationship Specialty Start Date End Date Elsewhere, Pcp PCP - General Internal Medicine 12/09/23
--- OUTSIDE RECORDS SUMMARY | 2024-03-18 12:16 | XMS_ITS | Encounter Summary ---
Author Organization [facility] Address [address] [place] [address] Care Team Providers Care Inorganic Chemical Technician Name Role Phone Elsewhere, Pcp Primary Care Provider Unavailabl e Encounter Details Date Type Department Care Team (Latest Contact Info) Description 10/18/2023 Intake [facility] Social History Tobacco Use Types Packs/Day Years Used Date Smoking Tobacco: Never Smokeless Tobacco: Never Alcohol Use Standard Drinks/Week Comments Defer 0 (1 standard drink = 0.6 oz pur e alcohol) [facility] Utilities Answer Date Recorded In the past 12 months has [facility] electric, gas, oil, or water [employer] threatened to shut off services in your [...] Pending 10/18/2023 10/18/2023 10/18/2023 9 :11 PM SCRAP DEALER COVID19 11/13/2023 11/13/2023 12/03/2023 5:55 AM SCRAP DEALER documented as of this encounter Care Teams Inorganic Chemical Technician Relationship Specialty Start Date End Date Elsewhere, Pcp PCP - General Internal Medicine 12/09/23 documented as of this encounter
--- OUTSIDE RECORDS SUMMARY | 2024-03-18 12:16 | XMS_ITS ---
Author Organization [facility] Address [address] [place] [id number] Care Team Providers Care Diazo Technician Name Role Phone Unavailable Unavailable Unavailable Surgery Details Not on file Complications Check Surgery Details section. Procedure Estimated Blood Loss Check Surgery Details section. Procedure Findings Check Surgery Details section. Procedure Specimens Taken Check Surgery Details section.
--- OUTSIDE RECORDS SUMMARY | 2024-03-18 12:16 | XMS_ITS | Encounter Summary ---
Author Organization [facility] Address [address] [place] [address] Care Team Providers Care Petroleum Engineering Teacher Name Role Phone Elsewhere, Pcp Primary Care Provider Unavailabl e Encounter Details Date Type Department Care Team ([facility] st Contact Info) Description 12/01/2023 Clinical Communication Department of Pulmonary Medicine in [address] [phone] [facility] [address] [place] [phone] Social History Tobacco Use Types Packs/Day Years Used Date Smoking Tobacco: Never Smokeless Tobacco: Never Alcohol Use Standard Drinks/Week Comments Defer 0 (1 standard drink = 0.6 oz pur e alcohol) [facility] Utilities Answer Date Recorded In the past 12 months has [facility] [employer], gas, oil, or water [employer] threatened to shut off services in your [...] your living situation today? I have a [facility] place to live 10/19/2023 Sex and [...] Time COVID19 11/13/2023 11/13/2023 12/03/2023 5:55 AM DIRECTOR OF PLACEMENT documented as of this encounter Care Teams Petroleum Engineering Teacher Relationship Specialty Start Date End Date Elsewhere, Pcp PCP - General Internal Medicine 12/09/23 documented as of this encounter
--- OUTSIDE RECORDS SUMMARY | 2024-03-18 12:16 | XMS_ITS | Referral Summary ---
Author Organization [facility] Address [address] [place] [address] Care Team Providers Care Hardening Machine Operator Helper Name Role Phone Elsewhere, Pcp Primary Care Provider Unavailabl e Source Comments Patient records contain information from all sites at [facility]. For routine questions regarding patient records, call [phone] during business hours, M-F 8:00 AM - 5:00 PM Central Time. Record requests for emergency care only can be directed to [phone] at any time.[facility] Allergies Active Allergy Reactions Criticality Noted [...] 09/19/2023 Hypertension Essential Primary 09/19/2023 Corticosteroid Treatment Usp Systemic 05/2023 Paraplegia 09/19/2023 Osteoporosis 06/28/2021 Acute [...] drink = 0.6 oz pur e alcohol) [facility] Utilities Answer Date Recorded In [...] Comments Blood Pressure 110/68 11/28/2023 8:43 AM TRAVEL ADMINISTRATOR Pulse 76 11/28/2023 8:43 AM TRAVEL ADMINISTRATOR Temperature 36.7 ??C (98 ??F) 11/28/2023 8:43 AM TRAVEL ADMINISTRATOR Respiratory Rate 18 11/28/2023 8:43 AM TRAVEL ADMINISTRATOR Oxygen Saturation 95% 11/28/2023 8:43 AM TRAVEL ADMINISTRATOR RA Inhaled Oxygen Concentration - - Weight 58.8 kg (129 lb 9.6 oz) 11/28/2023 8:43 A M TRAVEL ADMINISTRATOR Height 152 cm (4' 11.84) 10/19/2023 5:00 AM TRAVEL ADMINISTRATOR Body Mass Index 25.44 10/19/2023 5:00 AM TRAVEL ADMINISTRATOR Plan of Treatment Not on file Procedures Procedure Name Priority Date/Time Associated Diagnosis Comments BASIC METABOLIC PANEL, S/P Routine 11/04/2023 6:52 AM TRAVEL ADMINISTRATOR Hypokalemia from Last 3 Months or Most Recently Relevant to Health Maintenance Results * (ABNORMAL) Basic Metabolic Panel (11/04/2023 6:52 AM TRAVEL ADMINISTRATOR) Potassium, P 4.1 3.6 - 5.2 mmol/L 11/04/2023 8:14 AM TRAVEL ADMINISTRATOR NPRG Sodium, P 142 135 - 145 mmol/L 11/04/2023 8:14 AM TRAVEL ADMINISTRATOR NPRG Chloride, P 102 98 - 107 mmol/L 11/04/2023 8:14 AM TRAVEL ADMINISTRATOR NPRG Bicarbonate, P 30(H) 22 - 29 mmol/L 11/04/2023 8:14 AM TRAVEL ADMINISTRATOR NPRG Anion Gap, P 10 7 - 15 11/04/2023 8:14 AM TRAVEL ADMINISTRATOR NPRG BUN (Blood Urea Nitrogen), P 21 6 - 21 mg/dL 11/04/2023 8:14 AM TRAVEL ADMINISTRATOR NPRG Creatinine 0.28(L) 0.59 - 1.04 mg/dL 11/04/2023 8:14 AM TRAVEL ADMINISTRATOR NPRG Estimated GFR (eGFR) >90 >=60 mL/min/BSA 11/04/2023 8:14 AM TRAVEL ADMINISTRATOR NPRG Comment: Estimated GFR calculated using the 2020 CKD_EPI creatinine equation. Calcium, Total, P 9.1 8.8 - 10.2 mg/dL 11/04/2023 8:14 AM TRAVEL ADMINISTRATOR NPRG Glucose, P 79 70 - 140 mg/dL 11/04/2023 8:14 AM TRAVEL ADMINISTRATOR NPRG Blood (Blood, Venous) 11/04/2023 6:52 AM TRAVEL ADMINISTRATOR 11/04/2023 7:43 AM TRAVEL ADMINISTRATOR Osiris Otero APRN, C.N.P., R.N. LAB B LOOD ADD-ON [facility] [address] [place] [address], [facility] NPRG [facility] [address] [place] [address] from Last 3 Months or Most Recently Relevant to Health Maintenance Advance Directives For more information, please contact: [phone] Documents on File Type Date Recorded Patient Optical Effects Layout Person Expl anation Advance Directives 09/19/2023 4:06 PM POLS T/MOLST * DNR/DNI (Latest Code Status on File) Date Activated Date Inactivated Comments 10/19/2023 6:50 PM 10/27/2023 4:16 PM * Full Code Date Activated Date Inactivated Comments 10/19/2023 2:13 AM 10/19/2023 6:50 PM Question Answer Comments Full Code: Discussed Care Teams Hardening Machine Operator Helper Relationship Specialty Start Date End Date Elsewhere, Pcp PCP - General Internal Medicine 12/09/23
--- OUTSIDE RECORDS SUMMARY | 2024-03-18 12:16 | XMS_ITS | Clinical Summary ---
Author Organization [facility] Address [place], [place] [address] Care Team Providers Care Retail Loss Prevention Investigator Name Role Phone Kallie Tamayo NP Unavailable [phone] [facility] [place] Unavailable [phone] Flo Mckeon MD Primary Care Provider [phone] Allergies No known active allergies Medications Medication [...] - PCV) 012 COVID-19 vaccine series ( season) 3 Influenza for age 65+ 06/13/2024 Care Teams Retail Loss Prevention Investigator Relationship Specialty Start Date End Date Flo Mckeon MD [address] [place] [phone] PCP - General Family Practice 10/04/21 Kallie Tamayo NP [address] [phone] Family Practice 01/17/14 [facility] [place] [address] [address] 01/29/14
--- OUTSIDE RECORDS SUMMARY | 2024-03-18 12:16 | XMS_ITS | Encounter Summary ---
Author Organization [facility] Address [address] [place] [address] Care Team Providers Care Rough Planer Tender Name Role Phone [facility], [facility]- Primary Care Provider Flo Mckeon MD Primary Care Provider [phone] Reason for Referral * Home Health Therapies & Aides (Routine: Next available opening) - Pending Review Specialty Diagnoses / Procedures Referred By Contfarideh t Referred To Contact Diagnoses Pressure injury of right ischium, stage 4 (H) Dain Barnes MD [address] [place] [address] Referral ID Status Reason Start Date Expiration Date V isits Requested Visits Authorized [id number] Pending Review 03/14/2024 03/14/2025 1 1 Question Answer Reason for Referral: Usp Usp Eval and Treat for: Complex aftercare, Wound assessment and care Additional Services Needed: Home Health Aide Is the patient homebound? Yes Homebound Status (describe the functional limitations that support this patient is confined to his/her home. Medicaid recipients are not required to be homebound.): Patient has difficulty ambulating >100 ft I attest that I saw or will see the patient on this date: 03/14/2024 Provider to follow patient FLO MCKEON [[id number]] Additional Information: Wound dressing change Friday and Friday Reason for Visit * Reason Comments Fever * Auth/Cert (Routine) Specialty Diagnoses / Procedures Referred By Contac t Referred To Contact Intensive Care Diagnoses Paraplegia (H) Elevated lactic acid level Fever in adult Septic shock (H) Urinary tract infection without hematuria, site unspecified Pressure injury of skin, unspecified injury stage, unspecified location 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 Elevated lactic acid level Pressure injury of skin, unspecified injury stage, unspecified location Paraplegia (H) Fever in adult Septic shock (H) Urinary tract infection without hematuria, site unspecified [facility] [address] [place] [address] Referral ID Status Reason Start Date Expiration Date Visits Re quested Visits Authorized [id number] 1 1 Encounter Details Date Type Department Care Team (Late st Contact Info) Description 03/06/2024 12:34 AM CDT - 03/14/2024 5:17 PM CDT Hospital Encounter [place] [id number] [facility] [address] [place] [id number] Chago Velazquez MD [facility] [address] [place], [place] [id number] Chago Vicente DO [address] [place] [address] Pressure injury of right ischium, 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); Fever in adult; Septic shock (H); Urinary tract infection without hematuria, site unspecified; Elevated lactic acid level; 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 IV: Discontinued Prescriptions filled and given to patient/family. Belongings reviewed and sent with patient. Home medications returned to patient: NA Equipment sent with: patient. (personal Wound vac) patient verbalizes understanding of discharge instructions. AVS given to patient and family. * Dain Barnes MD - 03/14/2024 11:29 AM CDT Images from the original note were not included. [facility] Discharge Summary Hospitalist Date of Admission: 03/06/2024 Date of Discharge: 03/14/2024 Provider: Dain Barnes MD. [facility] Date of Service (when I last saw the patient): 03/14/24 Primary Provider: Flo Mckeon Discharge Diagnosis: Discharge Diagnoses Septic shock secondary to E. coli UTI/bacteremia Acute E. coli CAUTI with bacteremia Right ischial tuberosity pressure injury, Stage 4 (present on admission) Coccyx pressure injury, Stage 4 (present on admission) Left dorsal foot pressure injury and trauma (present on admission) Hypertension Hypokalemia (resolved) Hypernatremia (resolved) Elevated liver function tests secondary to septic shock (improved) Atrial fibrillation Rheumatoid arthritis on chronic prednisone therapy Significant peripheral edema Other medical issues: Past Medical History: Diagnosis Date Arthritis Decubitus ulcer of right ischial area Gastric ulcer History of transverse myelitis MRSA (methicillin resistant Staphylococcus aureus) 12/02/2013 Blood Neurogenic bladder Paraplegia Paroxysmal atrial fibrillation RA (rheumatoid arthritis) Sacral decubitus ulcer Please see the admission history and physical for full details. Hospital Course Prerna Major was admitted on 03/06/2024. 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 coli UTI with bacteremia. She exhibited fever, hypoxia, hypotension, leukocytosis, and elevated lactic acid. She was treated with IV ceftriaxone and IV steroids, with taper to oral prednisone which she is on 10 mg a day for rheumatoidarthritis chronically. Chronic issues like decubitus ulcers and hypertension were managed with wound care and adjustments to antihypertensive medication. Hypokalemia and hypernatremia resolved with ch riley in fluid management. During her stay, she responded well to diuresis, and her kidney functionremained stable. Net IO Since Admission: -9,399.67 mL [03/14/24 1131] Discharge Recommendations: Continue oral Levaquin 500 mg daily for 10 days. Follow up with wound clinic and home care for decubitus ulcer management. Primary care follow-up next week with a CBC and basic metabolic panel. Referral to infectious disease if ongoing infection concerns arise. Pending Results Unresulted Labs Ordered in the Past 30 Days of this Admission No orders found from 02/05/2024 to 03/07/2024. Discharge Orders Reason for your hospital stay Sepsis from urinary source Follow-up and recommended labs and tests Follow-up with primary care physician in 1 week with a CBC and basic metabolic panel Activity Your activity upon discharge: activity as tolerated Resume Home Care Services Diet Follow this diet upon discharge: Orders Placed This Encounter Regular Diet Adult Code Status DNR Primary Care Physician Flo Mckeon Physical Exam Temp: 98.3 ??F (36.8 ??C) Temp src: Oral BP: (!) 143/45 Pulse: 107 Resp: 18 SpO2: 94 % O2 Device: None (Room air) Vitals: 03/09/24 0603 03/13/24 0500 03/14/24 0602 Weight: 62.9 kg (138 lb 10.7 oz) 69.2 kg (152 lb 8.9 oz) 65.3 kg (143 lb 15.4 oz) Vital Signs with Ranges Temp: [98.3 ??F (36.8 ??C)-98.7 ??F (37.1 ??C)] 98.3 ??F (36.8 ??C) Pulse: [74-107] 107 Resp: [18] 18 BP: (143-195)/(45-89) 143/45 SpO2: [91 %-95 %] 94 % I/O last 3 completed shifts: In: 0 Out: 3550 [Urine:3550] Constitutional: alert, cooperative, no apparent distress Respiratory: No increased work of breathing, good air exchange, no crackles or wheezing. Cardiovascular: apical impulse,normal S1 and S2 GI: bowel sounds present, soft, non-distended, non-tender Discharge Disposition Discharged to home Consultations This Hospital Stay WOUND OSTOMY CONTINENCE NURSE IP CONSULT ADVANCE DIRECTIVE IP CONSULT CARE MANAGEMENT / SOCIAL WORK IP CONSULT Time Spent on this Encounter I, Dain Barnes MD, personally saw the patient today and spent greater than 30 minutes discharging this patient. Discharge Medications Current Discharge Medication List START taking these medications Details levofloxacin (LEVAQUIN) 500 MG tablet Take 1 tablet (500 mg) by mouth daily for 10 days Qty: 10 tablet, Refills: 0 Associated Diagnoses: Septic shock (H) CONTINUE these medications which have CHANGED Details metoprolol succinate ER (TOPROL XL) 100 MG 24 hr tablet Take 1 tablet (100 mg) by mouth daily Qty: 30 tablet, Refills: 0 Associated Diagnoses: Septic shock (H) CONTINUE these medications which have NOT CHANGED Details acetaminophen (TYLENOL 8 HOUR ARTHRITIS PAIN) 650 MG CR tablet Take 1,300 mg by mouth 2 times dailyas needed for mild pain or fever Ascorbic Acid (VITAMIN C PO) Take 1 tablet by mouth every evening furosemide (LASIX) 20 MG tablet Take 20 mg by mouth daily gabapentin (NEURONTIN) 300 MG capsule Take 300 mg by mouth 3 times daily lactobacillus rhamnosus, GG, (CULTURELL) capsule Take 1 capsule by mouth daily naproxen sodium (ANAPROX) 220 MG tablet Take 220 mg by mouth daily (with breakfast) oxyCODONE (ROXICODONE) 5 MG tablet Take 7.5 mg by mouth every 4 hours as needed for severe pain potassium chloride telly ER (KLOR-CON M10) 10 MEQ CR tablet Take 20 mEq by mouth daily predniSONE (DELTASONE) 5 MG tablet Take 10 mg by mouth daily zinc sulfate (ZINCATE) 220 (50 Zn) MG capsule Take 220 mg by mouth every evening Allergies Allergies Allergen Reactions Piperacillin Anaphylaxis Tazobactam Anaphylaxis Vancomycin Anaphylaxis Data Most Recent 3 CBC's: Recent Labs Lab Test 03/14/24 0602 03/12/24 0603 03/11/24 1351 WBC 15.5* 17.6* 19.5* HGB 10.4* 10.2* 10.0* MCV 88 89 89 PLT 330 323 314 Most Recent 3 BMP's: Recent Labs Lab Test 03/14/24 0602 03/13/24 0504 03/12/24 0603 03/11/24 1351 03/11/24 0618 NA 140 -- 143 -- 147* POTASSIUM 3.7 3.9 4.0 < > 3.2* CHLORIDE 96* -- 104 -- 109* CO2 36* -- 28 -- 28 BUN 17.1 -- 15.3 -- 24.1* CR 0.31* -- 0.25* -- 0.30* ANIONGAP 8 -- 11 -- 10 HOLLY 8.6* -- 8.4* -- 8.1* GLC 95 -- 91 -- 97 < > = values in this interval not displayed. Most Recent 2 LFT's: Recent Labs Lab Test 03/07/24 0431 03/06/24 1005 AST 45 129* ALT 62* 92* ALKPHOS 275* 329* BILITOTAL 0.2 0.4 Most Recent INR's and Anticoagulation Dosing History: Anticoagulation Dose History Latest Ref Rng & Units 12/10/2013 Recent Dosing and Labs INR 0.86 - 1.14 1.05 Most Recent 3 Troponin's:No lab results found. Most Recent Cholesterol Panel:No lab results found. Most Recent 6 Bacteria Isolates From Any Culture (See EPIC Reports for Culture Details):No lab results found. Most Recent TSH, T4 and A1c Labs: Recent Labs Lab Test 03/07/24 0431 A1C 6.6* Results for orders placed or performed during the hospital encounter of 03/06/24 XR Chest Port 1 View Narrative EXAM: XR CHEST PORT 1 VIEW LOCATION: [facility] DATE: 03/06/2024 INDICATION: Fever COMPARISON: 12/21/2013 Impression IMPRESSION: Mild cardiac enlargement. Normal pulmonary vascularity. Linear scarring right lung base. Marked vascular calcification. Postoperative changes thoracic and lumbar spine. XR Chest Port 1 View Narrative EXAM: XR CHEST PORT 1 VIEW LOCATION: [facility] DATE: 03/06/2024 INDICATION: central line confirmation of placement COMPARISON: 03/06/2024 1:28 AM Impression IMPRESSION: Interval placement of a right IJ central venous catheter which courses at least to the level of the superior cavoatrial junction but is partially obscured by overlapping metallic spinal hardware. Otherwise no interval change. Disclaimer: This note consists of symbols derived from keyboarding, dictation and/or voice recognition software. As a result, there may be errors in the script that have gone undetected. Please consider this when interpreting information found in this chart. documented in this encounter Medications at Time of Discharge Medication Sig Dispensed Refills Start Date End Date acetaminophen (TYLENOL 8 HOUR ARTHRITIS PAIN) 650 MG CR tablet Take 1,300 mg by mouth 2 times daily as needed for mild pain or fever Ascorbic Acid (VITAMIN C PO) Take 1 tablet by mouth every evening furosemide (LASIX) 20 MG tablet Take 20 mg by mouth daily gabapentin (NEURONTIN) 300 MG capsule Take 300 mg by mouth 3 times daily lactobacillus rhamnosus, GG, (CULTURELL) capsule Take 1 capsule by mouth daily levofloxacin (LEVAQUIN) 500 MG tabletIndications:Septi c shock (H) Take 1 tablet (500 mg) by mouth daily for 10 days 10 tablet 03/14/2024 03/24/2024 metoprolol succinate ER (TOPROL XL) 100 MG 24 hr tabletIndications:Septi c shock (H) Take 1 tablet (100 mg) by mouth daily 30 tablet 03/15/2024 naproxen sodium (ANAPROX) 220 MG tablet Take 220 mg by mouth daily (with breakfast) oxyCODONE (ROXICODONE) 5 MG tablet Take 7.5 mg by mouth every 4 hours as needed for severe pain potassium chloride telly ER (KLOR-CON M10) 10 MEQ CR tablet Take 20 mEq by mouth daily predniSONE (DELTASONE) 5 MG tablet Take 10 mg by mouth daily zinc sulfate (ZINCATE) 220 (50 Zn) MG capsule Take 220 mg by mouth every evening documented as of this encounter Progress Notes * Luciana Chaparro RN - 03/14/2024 12:10 PM CDT Care Management Discharge Note Discharge Date: 03/14/2024 Discharge Disposition: Home Care Discharge Services: skilled home nursing Discharge DME: wound vac dressing supplies Discharge Transportation: daughter Education Provided on the Discharge Plan: yes Persons Notified of Discharge Plans: [facility], pt's correctional case manager Adela Patient/Family in Agreement with the Plan: yes Additional Information: Patient is medically ready for discharge today back to home with daughter and resumption of home health care worker and EDUCATION AND TRAINING MANAGER through [facility]. [facility] provides patient with RN visits on Friday and Friday for wound vac dressing changes. Spoke with Adela pt's home health care worker on 03/12 and they have patient on scheduled for Thursday 03/15 at 2pm for vac dressing change. Text sent to Adela to update on discharge today. Pt's daughter Elvi will transport patient back to home with van. Bedside RN will arrange time with daughter. Home Care orders faxed to [facility] to review. No further CM needs noted, please call if needs arise. ADDENDUM 1228: Received call from dtr Elvi who wanted to make sure home care is all set up to resume. Updated Elvi that pt's RN Daniela has been notified and also orders to resume home care with [facility] has already loida faxed to agency. Home Care is set to resume tomorrow 03/15 @ 2pm for vac dressing change. Elvi plans to be here at 4pm to transport patient back to home. Luciana Chaparro RN Manager Database Administration [facility] [phone] * Dain Barnes MD - 03/13/2024 12:13 PM CDT Images from the original note were not included. [facility] Hospitalist Progress Note Admit 03/06/2024 12:34 AM Name: Prerna Major Provider: Dain Barnes MD, [facility] Date of Service: 03/13/2024 Reason for Stay (Diagnosis): E. 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 coli UTI with bacteremia. She exhibited fever, hypoxia, hypotension, leukocytosis, and elevated lactic acid. Treatment includes IV ceftriaxone for the UTI and IV steroids, with a plan to taper to oral prednisone. Chronic issues like decubitus ulcers and hypertension require ongoing management, with wound care and adjustment of antihypertensive medication. Additionally, hypokalemia has normalized, and hypernatremia has resolved, necessitating changes in fluid management. Diagnoses: Septic shock secondary to E. coli UTI/bacteremia, significantly elevated lactate on admission above4 Acute E. coli CAUTI with bacteremia Decubitus ulcers: Seen by the wound nurse follow-up wound care per WOC recommendation and follow-upin wound clinic and with home care on discharge Right IT Pressure Injury, Stage 4 (POA); Coccyx Pressure Injury Stage: 4 (POA); Left dorsal foot Pressure Injury and Trauma (POA) Hypertension Hypokalemia; Hypernatremia resolved Elevated liver function tests from septic shock improved on follow-up Atrial fibrillation Toprol dose was increased still blood pressure and pulse tolerates more increased to 100 mg daily, not on chronic anticoagulation Rheumatoid arthritis on chronic prednisone 10 mg daily Significant peripheral edema and oral Lasix at baseline Continue intravenous antibiotic IV Rocephin 1 more day and change to oral tomorrow Give additional dose of 40 mg intravenous Lasix once and follow-up electrolytes tomorrow and kidneyfunction Potentially tomorrow can go home with follow-up with wound clinic and home care DVT Prophylaxis: Enoxaparin (Lovenox) SQ Code Status: No CPR- Pre-arrest intubation OK Disposition Plan Medically Ready for Discharge: Anticipated Tomorrow Entered: Dain Barnes MD 03/13/2024, 12:13 PM Interval History: Doing well, a lot of swelling in the extremities Today's plan detailed above discussed with nursing Physical Exam: Physical Exam Temp: 97.9 ??F (36.6 ??C) Temp src: Axillary BP: (!) 155/74 Pulse: 86 Resp: 18 SpO2: 93 % O2 Device: None (Room air) Vitals: 03/08/24 0556 03/09/24 0603 03/13/24 0500 Weight: 61.2 kg (134 lb 14.7 oz) 62.9 kg (138 lb 10.7 oz) 69.2 kg (152 lb 8.9 oz) I/O last 3 completed shifts: In: - Out: 3050 [Urine:3050] GENERAL: Comfortable. PSYCH: pleasant, oriented, No acute distress. EYES: PERRLA, Normal conjunctiva. HEART: Normal S1, S2 with +2 pitting edema pretibial +3 in the ankle and feet . LUNGS: Clear to auscultation, fine basilar rales normal Respiratory effort. ABDOMEN: Soft, no hepatosplenomegaly, normal bowel sounds. SKIN: Dry to touch, No rash. Paraplegic Medications Current Facility-Administered Medications Medication Dose Route Frequency Provider Last Rate Last Admin Current Facility-Administered Medications Medication Dose Route Frequency Provider Last Rate Last Admin cefTRIAXone (ROCEPHIN) 2 g vial to attach to NS 100 ml bag for ADULTS or NS 50 ml bag for PEDS 2 g Intravenous Q24H Apple Burt, DO 2 g at 03/13/24 1045 enoxaparin ANTICOAGULANT (LOVENOX) injection 40 mg 40 mg Subcutaneous Q24H Apple Burt DO 40 mg at 03/12/24 1241 furosemide (LASIX) injection 40 mg 40 mg Intravenous Once Dian Barnes MD furosemide (LASIX) tablet 20 mg 20 mg Oral Daily Apple Burt, DO 20 mg at 03/13/24 0827 gabapentin (NEURONTIN) capsule 300 mg 300 mg Oral TID Apple Burt DO 300 mg at 03/12/24 0817 metoprolol succinate ER (TOPROL XL) 24 hr tablet 75 mg 75 mg Oral Daily Don Ramirez MD 75mg at 03/13/24 0828 predniSONE (DELTASONE) tablet 10 mg 10 mg Oral Daily Fox Watson MD 10 mg at 03/13/24 0828 sodium chloride (PF) 0.9% PF flush 10-40 mL 10-40 mL Intracatheter Q8H Apple Bond, DO30 mL at 03/13/24 0502 Data -Data reviewed today: I personally reviewed all new labs and imaging results over the last 24 hours. Recent Labs Lab 03/12/24 0603/11/24 1351 03/10/24 1459 WBC 17.6* 19.5* 16.5* HGB 10.2* 10.0* 10.1* HCT 34.7* 32.7* 32.9* MCV 89 89 88 PLT 323 314 331 Recent Labs Lab 03/13/24 0504 03/12/24 0603 03/11/24 1351 03/11/24 0618 03/09/24 0616 03/09/24 0217 03/07/24 0808 03/07/24 0431 NA -- 143 -- 147* -- -- -- 145 POTASSIUM 3.9 4.0 4.3 3.2* < > -- < > 4.3 CHLORIDE -- 104 -- 109* -- -- -- 111* CO2 -- 28 -- 28 -- -- -- 23 ANIONGAP -- 11 -- 10 -- -- -- 11 GLC -- 91 -- 97 -- 171* < > 131* BUN -- 15.3 -- 24.1* -- -- -- 17.1 CR -- 0.25* -- 0.30* -- -- -- 0.24* GFRESTIMATED -- >90 -- >90 -- -- -- >90 HOLLY -- 8.4* -- 8.1* -- -- -- 8.1* < > = values in this interval not displayed. No results found for this or any previous visit (from the past 24 hour(s)). This document was produced using voice recognition software * Crescencio Roach RN - 03/12/2024 2:34 PM CDT Images from the original note were not included. 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 Her blood pressure was 86/64 heart rate 115 WBC was 26.2 hemoglobin 10.5 urine showed positive nitrates large leukocyte Estrace greater than 182 WBCs with WBC clumps his blood grew E. coli which was treated with ceftriaxone and change in Delacruz's catheter in the emergency department patient was diagnosed with septic shock with lactic acid that was elevated at 4.4 Assessment: Areas visualized during today's visit: Sacrum/coccyx, Right IT Negative pressure wound therapy applied to: Right IT Last photo: 03/12/24 Wound due to: Pressure Injury, Stage 4 present on admission Wound history/plan of care: Patient reports having wound for years. Is followed at wound clinic in [place] and is currently using NPWT. Patient requests to continue using her Medela pump and her daughter brought in supplies. Surgical date: NA Service following: WOC Date Negative Pressure Wound Therapy initiated: as outpatient Interventions in place: repositioning, specialty surface in use, and offloading Is patient???s nutritional status compromised? yes If yes, what interventions are in place? Protein supplements Reason for initiating vac therapy? Prior history of delayed wound healing Which?of?the?following?co-morbidities?apply? Immobility If diabetic is patient on a diabetic management program? N/A Is osteomyelitis present in wound? Unknown but likely chronic if present If yes what treatments are in place? N/A Wound base: 100 % granulation tissue, bone palpable but not exposed Palpation of the wound bed: firm Drainage: moderate Volume in cannister: 125 Last cannister change date: 03/12/24 Description of drainage: serosanguinous Measurements (length x width x depth, in cm) 2 x 2 x 3 cm Tunneling N/A Undermining N/A Periwound skin: Scar tissue Color: normal and consistent with surrounding tissue Temperature: normal Odor: none Pain: moderate Pain intervention prior to dressing change: oral oxycodone Treatment goal: Heal and Increase granulation STATUS: improving Supplies ordered: at bedside Number of foam pieces removed from a wound (excluding foam for bridge) : 1 GranuFoam Black Verified this matched the number of foam pieces applied last dressing change: Yes Number of foam pieces packed into wound (excluding foam for bridge) : 1 GranuFoam Black Pressure Injury Location: Coccyx Last photo: 03/12/24 Wound type: Pressure Injury Pressure Injury Stage: 4, present on admission Wound history/plan of care: Patient reports wound has been present for a couple months. Is followedat wound clinic in [place]. Currently using Vashe packing. Per patient they were considering starting NPWT to this wound as well today. Discussed starting NPWT today but patient prefers to wait until her follow up clinic appointment. Wound base: 70 % red granulation tissue, 30 % fibrin, slough, and adipose tissue Palpation of the wound bed: normal Drainage: moderate Description of drainage: serosanguinous and purulent Measurements (length x width x depth, in cm) 3 x 3 x 2.5 cm (measurements positional) Tunneling N/A Undermining up to 2.5 cm from 3-5 o'clock Periwound skin: Scar tissue Color: purple Temperature: normal Odor: none Pain: moderate Pain intervention prior to dressing change: oral oxycodone Treatment goal: Heal and Remove necrotic tissue STATUS: improving Supplies ordered: at bedside My PI Risk Assessment Sensory Perception: 2 - Very Limited Moisture: 3 - Occasionally moist Activity: 1 - Bedfast Mobility: 2 - Very limited Nutrition: 3 - Adequate Friction/Shear: 2 - Potential problem TOTAL: 13 Wound location: Left dorsal foot-did not reassess this wound today, previous assessment listed below: Last photo: 03/09/24 Wound due to: Pressure Injury and Trauma Wound history/plan of care: Patient reports she doesn't know how injury occurred. Based on locationand appearance of wound suspect this may be from a compression garment which got bunched up. Wound base: 100 % dry drainage Palpation of the wound bed: normal Drainage: none Description of drainage: none Measurements (length x width x depth, in cm): 0.7 x 2.5 cm Tunneling: N/A Undermining: N/A Periwound skin: Intact, additional 0.2x0.2cm area of dry drainage on medial foot Color: normal and consistent with surrounding tissue Temperature: normal Odor: none Pain: denies Pain interventions prior to dressing change: N/A Treatment goal: Heal and Protection STATUS: initial assessment Supplies ordered: at bedside Treatment Plan: Negative pressure wound therapy plan: Wound location: Right IT Change Days: / Fri this week, MWF starting 03/15/24 by WOC RN Supplies (including all accessories) used: medium Black foam (currently using home Medela pump and dressing) Cleanse with Vashe prior to replacing NPWT Suction setting: -100 camp boss to assess integrity of dressing and ensure suction is set at appropriate level every shift. Date canister. Chart canister output every shift. Change cannister weekly and PRN if full/occluded Remove foam dressing and replace with BID normal saline moist gauze dressing if: -a dressing failure which cannot be repaired within 2 hours -patient is discharging to home without a home pump -patient is discharging to a facility outside the local area -if a dressing is a Silver Foam, remove before Radiation Therapy or MRI The hospital VAC pump is not to be discharged with the patient.?Ensure to disconnect patient from machine prior to discharge. Then, - If a home KCI VAC pump has been delivered, connect home cannister to dressing tubing then connectcannister to home pump and turn on machine - If transferring to a nearby facility with a KCI vac, can disconnect and clamp tubing then cover end with glove so can be reconnected within 2 hours Coccyx wound(s): Daily Cleanse wound and surrounding skin with Vashe Packing with Vashe moistened gauze Cover with Mepilex sacral Left foot wound(s): Every 3 days Cleanse with wound cleanser and dry Apply Mepilex 4x4 Pressure Injury Prevention (PIP) Plan: If patient is declining pressure injury prevention interventions: Explore reason why and address patient's concerns, Educate on pressure injury risk and prevention intervention(s), and If patient is still declining, document informed refusal Mattress: Follow bed algorithm, reassess daily and order specialty mattress, if indicated. HOB: Maintain at or below 30 degrees, unless contraindicated Repositioning in bed: Every 1-2 hours and Left/right positioning; avoid supine Heels: Pillows under calves Moisture Management: Avoid brief in bed Under Devices: Inspect skin under all medical devices during skin inspection , Ensure tubes are stabilized without tension, and Ensure patient is not lying on medical devices or equipment when repositioned Ask provider to discontinue device when no longer needed. Orders: Reviewed RECOMMEND PRIMARY TEAM ORDER: None, at this time Education provided: importance of repositioning, plan of care, and Off-loading pressure Discussed plan of care with: Patient and Nurse WO nurse follow-up plan: Friday/ Notify WOC if wound(s) deteriorate. Nursing to notify the Provider(s) and re-consult the WO Nurse if new skin concern. DATA: Current support surface: Standard Standard Isoflex gel Containment of urine/stool: Indwelling catheter BMI: Body mass index is 27.08 kg/m??. Active diet order: Orders Placed This Encounter Regular Diet Adult Output: I/O last 3 completed shifts: In: 1308.75 [P.O.:340; I.V.:968.75] Out: 1300 [Urine:1300] Labs: Recent Labs Lab 03/12/24 0603 03/10/24 1459 03/07/24 0431 ALBUMIN -- -- 2.9* HGB 10.2* < > 9.6* WBC 17.6* < > 16.3* A1C -- -- 6.6* < > = values in this interval not displayed. Pressure injury risk assessment: Sensory Perception: 2-->very limited Moisture: 3-->occasionally moist Activity: 1-->bedfast Mobility: 2-->very limited Nutrition: 3-->adequate Friction and Shear: 1-->problem Brandon Score: 12 Crescencio Roach RN CWOCN Contact Via [facility] [place] Nurse ([place]) Dept. Office Number: [phone] * Don Ramirez MD - 03/12/2024 11:40 AM CDT [facility] Medicine Progress Note - Hospitalist Service Date of Admission: 03/06/2024 Prerna Major is a 78 year old lady with paraplegia secondary to transverse myelitis, chronic indwelling Delacruz's catheter for neurogenic bladder, rheumatoid arthritis on chronic prednisone therapy, peptic ulcer disease, insomnia, atrial fibrillation, scoliosis and constipation and chronic sacral wound presented to [facility] 03/06/2024 from her home to the wound clinic for regular appointment and was found to have a fever of 103.9 ??F with hypoxia and oxygen saturation in the 80s on room air, generalized weakness. Her blood pressure was 86/64 heart rate 115 WBC was 26.2 hemoglobin 10.5 urine showed positive nitrates large leukocyte Estrace greater than 182 WBCs with WBC clumps his blood grew E. coli which was treated with ceftriaxone and change in Delacruz's catheter in the emergency department patient was diagnosed with septic shock with lactic acid that was elevated at 4.4 Assessment & Plan Septic shock secondary to E. coli UTI Acute E. coli CAUTI Patient presented with sepsis symptoms of fever tachycardia tachypnea hypoxia hypotension and leukocytosis with elevated lactic acid Urine had pyuria with positive leukocyte esterase and nitrates Urinalysis growing E. coli both of which are sensitive to ceftriaxone that the patient was started on 03/06/2024 -Still showing leukocytosis but also received IV steroids earlier currently back on her maintenancecorticosteroids Decubitus ulcers These are chronic in nature present before admission. Patient is following with wound care clinic she had a wound VAC earlier. WOC has been consulted. We do not suspect that decubitus ulcers are the cause of the fevers and sepsis Hypertension -Still showing uncontrolled levels today -Increase her home regimen of Toprol from 50 to 75 mg daily -Notable for tachycardia this morning and sensation of palpitations -Electrolytes within acceptable ranges with normal potassium levels today -Check EKG for completion Hypokalemia This has normalized but again was 3.2 which has improved to 4.3 Hypernatremia-resolved -Earlier hypernatremia -Stop hypotonic solution Rheumatoid arthritis On chronic prednisone therapy stress dose steroids were ordered at admission but with sepsis over and blood pressure much higher this is being tapered down to oral prednisone to home dose of 10 mg daily Elevated liver function tests Probably as a result of hypoperfusion Atrial fibrillation On metoprolol for rate control -See above discussion for rate control -Reviewed medicine reconciliation and patient is not on chronic anticoagulation at home Peptic ulcer disease Diet: Regular Diet Adult DVT Prophylaxis: Enoxaparin (Lovenox) SQ Delacruz Catheter: PRESENT, indication: Other (Comment) (neurogenic bladder) Lines: PRESENT CVC Triple Lumen Right Internal jugular Non - valved (open ended)-Site Assessment: WDL Cardiac Monitoring: None Code Status: No CPR- Pre-arrest intubation OK Clinically Significant Risk Factors # Hypokalemia: Lowest K = 3.2 mmol/L in last 2 days, will replace as needed # Hypernatremia: Highest Na = 147 mmol/L in last 2 days, will monitor as appropriate # Hypoalbuminemia: Lowest albumin = 2.7 g/dL at 03/06/2024 10:05 AM, will monitor as appropriate # DMII: A1C = 6.6 % (Ref range: <5.7 %) within past 6 months # Overweight: Estimated body mass index is 27.08 kg/m?? as calculated from the following: Height as of this encounter: 1.524 m (5'). Weight as of this encounter: 62.9 kg (138 lb 10.7 oz). Disposition Plan Medically Ready for Discharge: Anticipated Tomorrow if blood pressure and heart rate continues to improve Don Ramirez MD, MD Hospitalist Service [facility] Securely message with [employer]plexj[employer] miguel (more info) Text page via [employer] Paging/Directory Interval History I assumed medicine service care today. Seen and examined. Chart reviewed. Case discussed with nursing service. I met this pleasant lady while she is laying comfortably in bed. She just finished her breakfast food tray and was able to tolerate it. She is endorsing no ongoing nausea or vomiting nor any abdominal discomfort or diarrhea. No reported bleeding tendencies. However Ms. Hernandez shared thatshalina is feeling not too well today and had some palpitations earlier. Blood pressure was elevated and noted to be tachycardic. Afebrile. Not requiring any oxygen support. No reported mental status changes. Physical Exam Vital Signs: Temp: 98.7 ??F (37.1 ??C) Temp src: Oral BP: (!) 157/69 Pulse: 105 Resp: 18 SpO2: 93 %O2 Device: None (Room air) Weight: 138 lbs 10.71 oz HEENT; Atraumatic, normocephalic, pinkish conjuctiva, pupils bilateral reactive Skin: warm and moist, no rashes Delacruz catheter noted Lungs: equal chest expansion, clear to auscultation, no wheezes, no stridor, no crackles, Heart: normal rate, normal rhythm, no rubs or gallops. Abdomen: normal bowel sounds, no tenderness, no peritoneal signs, no guarding Extremities: no deformities, lower extremity edema Neuro; follow commands, alert and oriented x3, spontaneous speech, coherent, paraplegic Psych; no hallucination, euthymic mood, not agitated Medical Decision Making 50 MINUTES SPENT BY ME on the date of service doing chart review, history, exam, documentation & further activities per the note. MANAGEMENT DISCUSSED with the following over the past 24 hours: Yes NOTE(S)/MEDICAL RECORDS REVIEWED over the past 24 hours: Yes Data I have personally reviewed the following data over the past 24 hrs: 17.6 (H) \ 10.2 (L) / 323 143 104 15.3 / 91 4.0 28 0.25 (L) \ Imaging results reviewed over the past 24 hrs: No results found for this or any previous visit (from the past 24 hour(s)). * Luciana Chaparro RN - 03/12/2024 11:34 AM CDT Care Management Follow Up Length of Stay (days): 6 Expected Discharge Date: 03/13/2024 Concerns to be Addressed: discharge planning Patient plan of care discussed at interdisciplinary rounds: Yes Anticipated Discharge Disposition: Home Care Education Provided on the Discharge Plan: yes Patient/Family in Agreement with the Plan: yes Referrals Placed by CM/SW: Homecare Additional Information: Update from hospitalist, patient will no longer be medically ready for discharge today. Called and updated pt's daughter Elvi regarding discharge. Elvi states that her family owns a handicap van and will be able to transfer patient themselves back to home when medically ready. Elvi states that homecare RN sees patient on Friday/Friday and pt has vac change in clinic every Friday. Will continue to follow for discharge planning. ADDENDUM 1320: Spoke with Adela @ [facility] and confirmed that if patient discharges over the weekend then home health care worker will see patient on Thursday 03/15 to resume home care and change vac dressing. If patient discharges on Thursday 03/15 then vac dressing will need to be changed at hospital prior to discharge and home care will resume services on 03/17 for the next wound vac dressing change. Luciana Chaparro RN Manager Database Administration [facility] [phone] * Tanvi Smiley RN - 03/11/2024 1:43 PM CDT Care Management Follow Up Length of Stay (days): 5 Expected Discharge Date: 03/12/2024 Concerns to be Addressed: discharge planning Patient plan of care discussed at interdisciplinary rounds: Yes Anticipated Discharge Disposition: Home Care Patient/Family in Agreement with the Plan: yes Referrals Placed by LES/DAISY: Homecare Additional Information: Received call from [facility] with questions regarding discharge. They needed confirmation that patient would not go with a central line in place. Confirmed this with them and that at this point would be coming back with same wound vac cares. Once ready for discharge will need to notify them of the day and when next vac change will be due. They provide changes twice a week and patient goes to an outpatient wound clinic one day a week. Contacted daughter Elvi and she will bring in home vac unit/supplies. WOC RN aware. Tanvi Smiley RN BSN OCN Manager Database Administration [facility] [phone] * Fox Watson MD - 03/11/2024 11:20 AM CDT Hospitalist Medicine Progress Note [facility] Prerna Major is a 78 year old lady with paraplegia secondary to transverse myelitis, chronic indwelling Delacruz's catheter for neurogenic bladder, rheumatoid arthritis on chronic prednisone therapy, peptic ulcer disease, insomnia, atrial fibrillation, scoliosis and constipation and chronic sacral wound presented to [facility] 03/06/2024 from her home to the wound clinic for regular appointment and was found to have a fever of 103.9 ??F with hypoxia and oxygen saturation in the 80s on room air, generalized weakness. Her blood pressure was 86/64 heart rate 115 WBC was 26.2 hemoglobin 10.5 urine showed positive nitrates large leukocyte Estrace greater than 182 WBCs with WBC clumps his blood grew E. coli which was treated with ceftriaxone and change in Delacruz's catheter in the emergency department patient was diagnosed with septic shock with lactic acid that was elevated at 4.4 Date of Admission: 03/06/2024 Assessment & Plan Septic shock secondary to E. coli UTI Acute E. coli CAUTI Patient presented with sepsis symptoms of fever tachycardia tachypnea hypoxia hypotension and leukocytosis with elevated lactic acid Urine had pyuria with positive leukocyte esterase and nitrates Urinalysis growing E. coli both of which are sensitive to ceftriaxone that the patient was started on 03/06/2024 Decubitus ulcers These are chronic in nature present before admission. Patient is following with wound care clinic she had a wound VAC earlier. WO has been consulted. We do not suspect that decubitus ulcers are the cause of the fevers and sepsis Hypertension Patient is on treatment with metoprolol 50 mg daily as well as Lasix 20 mg daily. Blood pressure remains high probably on the basis of Solu-Cortef being given 50 mg every 6 hours. Changed Solu-Cortefto oral prednisone and monitor blood pressure closely which is improving Hypokalemia This has normalized but again was 3.2 which has improved to 4.3 Hyponatremia Will give patient D5 drip and monitor sodium in a.m. encouraged her to drink more water. Rheumatoid arthritis On chronic prednisone therapy stress dose steroids were ordered at admission but with sepsis over and blood pressure much higher this is being tapered down to oral prednisone to home dose of 10 mg daily Elevated liver function tests Probably as a result of hypoperfusion Atrial fibrillation On metoprolol for rate control Peptic ulcer disease Plan: Blood pressure is still high - will monitor closely Prednisone 10 mg as before admission will be given CBC and BMP in am Discharge in am 03/12/2024 Diet: Regular Diet Adult DVT Prophylaxis: Enoxaparin (Lovenox) SQ Delacruz Catheter: PRESENT, indication: Other (Comment) (pre existing) Code Status: No CPR- Pre-arrest intubation OK The patient's care was discussed with the Patient and RN. Fox Watson MD Hospitalist Service [facility] Interval History Symptoms Patient feels better as compared to yesterday Review of Systems: She denies any headache that was present yesterday Data reviewed today: I reviewed all medications, new labs and imaging results over the last 24 hours. Physical Exam Vital Signs: Temp: 97.7 ??F (36.5 ??C) Temp src: Oral BP: (!) 148/68 Pulse: 85 Resp: 18 SpO2: 95 % O2 Device: None (Room air) Weight: 138 lbs 10.71 oz GENERAL: Patient is not in acute distress HEENT: EOM+,Conjunctiva is clear NECK: no Jugular Venous distention HEART: S1 S2 regular Rate and Rhythm, there is no murmur, LUNGS: Respirations are not laboured, Lungs are clear to auscultation without Crepitations or Wheezing ABDOMEN: Soft , there is no tenderness , Bowel Sounds are Positive HEAD OF CYTOGENETICS: Alert, Oriented x 3, Data Recent Labs Lab 03/11/24 0618 03/10/24 1459 03/10/24 0523 03/09/24 0616 03/09/24 0217 03/08/24 0921 03/08/24 0224 03/07/24 0808 03/07/24 0431 03/06/24 1201 03/06/24 1005 03/06/24 0758 03/06/24 0052 WBC -- 16.5* -- -- -- -- -- -- 16.3* -- -- -- 26.2* HGB -- 10.1* -- -- -- -- -- -- 9.6* -- -- -- 10.5* MCV -- 88 -- -- -- -- -- -- 91 -- -- -- 89 PLT -- 331 -- -- -- -- -- -- 280 -- -- -- 321 NA 147* -- -- -- -- -- -- -- 145 -- 143 -- 142 POTASSIUM 3.2* -- 3.6 3.9 -- < > -- -- 4.3 < > 3.5 -- 3.3* CHLORIDE 109* -- -- -- -- -- -- -- 111* -- 109* -- 103 CO2 28 -- -- -- -- -- -- -- 23 -- 21* -- 23 BUN 24.1* -- -- -- -- -- -- -- 17.1 -- 21.1 -- 21.7 CR 0.30* -- -- -- -- -- -- -- 0.24* -- 0.33* -- 0.31* ANIONGAP 10 -- -- -- -- -- -- -- 11 -- 13 -- 16* HOLLY 8.1* -- -- -- -- -- -- -- 8.1* -- 7.3* -- 8.4* GLC 97 -- -- -- 171* -- 165* < > 131* < > 157* < > 107* ALBUMIN -- -- -- -- -- -- -- -- 2.9* -- 2.7* -- 3.0* PROTTOTAL -- -- -- -- -- -- -- -- 5.0* -- 4.9* -- 5.2* BILITOTAL -- -- -- -- -- -- -- -- 0.2 -- 0.4 -- 0.3 ALKPHOS -- -- -- -- -- -- -- -- 275* -- 329* -- 361* ALT -- -- -- -- -- -- -- -- 62* -- 92* -- 46 AST -- -- -- -- -- -- -- -- 45 -- 129* -- 77* < > = values in this interval not displayed. No results found for this or any previous visit (from the past 24 hour(s)). * Fox Watson MD - 03/10/2024 2:38 PM CDT Hospitalist Medicine Progress Note [facility] Prerna Major is a 78 year old lady with paraplegia secondary to transverse myelitis, chronic indwelling Delacruz's catheter for neurogenic bladder, rheumatoid arthritis on chronic prednisone therapy, peptic ulcer disease, insomnia, atrial fibrillation, scoliosis and constipation and chronic sacral wound presented to [facility] 03/06/2024 from her home to the wound clinic for regular appointment and was found to have a fever of 103.9 ??F with hypoxia and oxygen saturation in the 80s on room air, generalized weakness. Her blood pressure was 86/64 heart rate 115 WBC was 26.2 hemoglobin 10.5 urine showed positive nitrates large leukocyte Estrace greater than 182 WBCs with WBC clumps his blood grew E. coli which was treated with ceftriaxone and change in Delacruz's catheter in the emergency department patient was diagnosed with septic shock with lactic acid that was elevated at 4.4 Date of Admission: 03/06/2024 Assessment & Plan Septic shock secondary to E. coli UTI Acute E. coli CAUTI Patient presented with sepsis symptoms of fever tachycardia tachypnea hypoxia hypotension and leukocytosis with elevated lactic acid Urine had pyuria with positive leukocyte esterase and nitrates Urinalysis growing gram-negative rods and blood culture grew E. coli which is sensitive to ceftriaxone that the patient was started on 03/06/2024 Decubitus ulcers These are chronic in nature present before admission. Patient is following with wound care clinic she had a wound VAC earlier. WOC has been consulted. We do not suspect that decubitus ulcers are the cause of the fevers and sepsis Hypertension Patient is on treatment with metoprolol 50 mg daily as well as Lasix 20 mg daily. Blood pressure remains high probably on the basis of Solu-Cortef being given 50 mg every 6 hours. Will change Solu-Cortef to oral prednisone and monitor blood pressure closely Hypokalemia This has normalized Rheumatoid arthritis On chronic prednisone therapy stress dose steroids were ordered at admission but with sepsis over and blood pressure much higher this is being tapered down to oral prednisone Elevated liver function tests Probably as a result of hypoperfusion Atrial fibrillation On metoprolol for rate control Peptic ulcer disease Plan: Blood pressure is still high - will monitor closely Prednisone 10 mg as before admission will be given CBC and BMP in am Discontinue Hydralazine due to headache Discharge in 1 to 2 days Diet: Regular Diet Adult DVT Prophylaxis: Enoxaparin (Lovenox) SQ Delacruz Catheter: PRESENT, indication: Immobilization due to spinal injuries or other multiple traumatic injuries Code Status: No CPR- Pre-arrest intubation OK The patient's care was discussed with the Patient and RN. Fox Watson MD Hospitalist Service [facility] Interval History Symptoms No fever or chills Feeling weak Review of Systems: Has headache Data reviewed today: I reviewed all medications, new labs and imaging results over the last 24 hours. Physical Exam Vital Signs: Temp: 97.7 ??F (36.5 ??C) Temp src: Oral BP: (!) 182/80 Pulse: 94 Resp: 16 SpO2: 96 % O2 Device: None (Room air) Weight: 138 lbs 10.71 oz GENERAL: Patient is not in acute distress HEENT: EOM+,Conjunctiva is clear NECK: no Jugular Venous distention HEART: S1 S2 regular Rate and Rhythm, there is no murmur, LUNGS: Respirations are not laboured, Lungs are clear to auscultation without Crepitations or Wheezing ABDOMEN: Soft , there is no tenderness , Bowel Sounds are Positive HEAD OF CYTOGENETICS: Alert, Oriented x 3, Data Recent Labs Lab 03/10/24 0523 03/09/24 0616 03/09/24 0217 03/08/24 0921 03/08/24 0224 03/07/24 1603 03/07/24 0808 03/07/24 0431 03/06/24 1201 03/06/24 1005 03/06/24 0758 03/06/24 0052 WBC -- -- -- -- -- -- -- 16.3* -- -- -- 26.2* HGB -- -- -- -- -- -- -- 9.6* -- -- -- 10.5* MCV -- -- -- -- -- -- -- 91 -- -- -- 89 PLT -- -- -- -- -- -- -- 280 -- -- -- 321 NA -- -- -- -- -- -- -- 145 -- 143 -- 142 POTASSIUM 3.6 3.9 -- 3.9 -- -- -- 4.3 < > 3.5 -- 3.3* CHLORIDE -- -- -- -- -- -- -- 111* -- 109* -- 103 CO2 -- -- -- -- -- -- -- 23 -- 21* -- 23 BUN -- -- -- -- -- -- -- 17.1 -- 21.1 -- 21.7 CR -- -- -- -- -- -- -- 0.24* -- 0.33* -- 0.31* ANIONGAP -- -- -- -- -- -- -- 11 -- 13 -- 16* HOLLY -- -- -- -- -- -- -- 8.1* -- 7.3* -- 8.4* GLC -- -- 171* -- 165* 174* < > 131* < > 157* < > 107* ALBUMIN -- -- -- -- -- -- -- 2.9* -- 2.7* -- 3.0* PROTTOTAL -- -- -- -- -- -- -- 5.0* -- 4.9* -- 5.2* BILITOTAL -- -- -- -- -- -- -- 0.2 -- 0.4 -- 0.3 ALKPHOS -- -- -- -- -- -- -- 275* -- 329* -- 361* ALT -- -- -- -- -- -- -- 62* -- 92* -- 46 AST -- -- -- -- -- -- -- 45 -- 129* -- 77* < > = values in this interval not displayed. No results found for this or any previous visit (from the past 24 hour(s)). * Fox Watson MD - 03/09/2024 10:33 AM CDT Hospitalist Medicine Progress Note [facility] Prerna Major is a 78 year old lady with paraplegia secondary to transverse myelitis, chronic indwelling Delacruz's catheter for neurogenic bladder, rheumatoid arthritis on chronic prednisone therapy, peptic ulcer disease, insomnia, atrial fibrillation, scoliosis and constipation and chronic sacral wound presented to [facility] 03/06/2024 from her home to the wound clinic for regular appointment and was found to have a fever of 103.9 ??F with hypoxia and oxygen saturation in the 80s on room air, generalized weakness. Her blood pressure was 86/64 heart rate 115 WBC was 26.2 hemoglobin 10.5 urine showed positive nitrates large leukocyte Estrace greater than 182 WBCs with WBC clumps his blood grew E. coli which was treated with ceftriaxone and change in Delacruz's catheter in the emergency department patient was diagnosed with septic shock with lactic acid that was elevated at 4.4 Date of Admission: 03/06/2024 Assessment & Plan Septic shock secondary to E. coli UTI Acute E. coli CAUTI Patient presented with sepsis symptoms of fever tachycardia tachypnea hypoxia hypotension and leukocytosis with elevated lactic acid Urine had pyuria with positive leukocyte esterase and nitrates Urinalysis growing gram-negative rods and blood culture grew E. coli which is sensitive to ceftriaxone that the patient was started on 03/06/2024 Decubitus ulcers These are chronic in nature present before admission. Patient is following with wound care clinic she had a wound VAC earlier. WOC has been consulted. We do not suspect that decubitus ulcers are the cause of the fevers and sepsis Hypertension Patient is on treatment with metoprolol 50 mg daily as well as Lasix 20 mg daily. Blood pressure remains high probably on the basis of Solu-Cortef being given 50 mg every 6 hours. Will change Solu-Cortef to oral prednisone and monitor blood pressure closely Hypokalemia This has normalized Rheumatoid arthritis On chronic prednisone therapy stress dose steroids were ordered at admission but with sepsis over and blood pressure much higher this is being tapered down to oral prednisone Elevated liver function tests Probably as a result of hypoperfusion Atrial fibrillation On metoprolol for rate control Peptic ulcer disease Plan: Blood pressure is decreasing will monitor closely Discharge in 1 to 2 days Diet: Regular Diet Adult DVT Prophylaxis: Enoxaparin (Lovenox) SQ Delacruz Catheter: PRESENT, indication: Immobilization due to spinal injuries or other multiple traumatic injuries Code Status: No CPR- Pre-arrest intubation OK The patient's care was discussed with the Patient and RN. Fox Watson MD Hospitalist Service [facility] Interval History Symptoms No fever or chills She did have dressing over her sacral area by [facility] Review of Systems: Says she is already starting to feel better Data reviewed today: I reviewed all medications, new labs and imaging results over the last 24 hours. Physical Exam Vital Signs: Temp: 98.1 ??F (36.7 ??C) Temp src: Oral BP: (!) 194/87 (RN notified) Pulse: 77 Resp: 18 SpO2: 97 % O2 Device: None (Room air) Weight: 138 lbs 10.71 oz GENERAL: Patient is not in acute distress HEENT: EOM+,Conjunctiva is clear NECK: no Jugular Venous distention HEART: S1 S2 regular Rate and Rhythm, there is no murmur, LUNGS: Respirations are not laboured, Lungs are clear to auscultation without Crepitations or Wheezing ABDOMEN: Soft , there is no tenderness , Bowel Sounds are Positive HEAD OF CYTOGENETICS: Alert, Oriented x 3, Data Recent Labs Lab 03/09/24 0616 03/09/24 0217 03/08/24 0921 03/08/24 0224 03/07/24 1603 03/07/24 0808 03/07/24 0431 03/06/24 1201 03/06/24 1005 03/06/24 0758 03/06/24 0052 WBC -- -- -- -- -- -- 16.3* -- -- -- 26.2* HGB -- -- -- -- -- -- 9.6* -- -- -- 10.5* MCV -- -- -- -- -- -- 91 -- -- -- 89 PLT -- -- -- -- -- -- 280 -- -- -- 321 NA -- -- -- -- -- -- 145 -- 143 -- 142 POTASSIUM 3.9 -- 3.9 -- -- -- 4.3 < > 3.5 -- 3.3* CHLORIDE -- -- -- -- -- -- 111* -- 109* -- 103 CO2 -- -- -- -- -- -- 23 -- 21* -- 23 BUN -- -- -- -- -- -- 17.1 -- 21.1 -- 21.7 CR -- -- -- -- -- -- 0.24* -- 0.33* -- 0.31* ANIONGAP -- -- -- -- -- -- 11 -- 13 -- 16* HOLLY -- -- -- -- -- -- 8.1* -- 7.3* -- 8.4* GLC -- 171* -- 165* 174* < > 131* < > 157* < > 107* ALBUMIN -- -- -- -- -- -- 2.9* -- 2.7* -- 3.0* PROTTOTAL -- -- -- -- -- -- 5.0* -- 4.9* -- 5.2* BILITOTAL -- -- -- -- -- -- 0.2 -- 0.4 -- 0.3 ALKPHOS -- -- -- -- -- -- 275* -- 329* -- 361* ALT -- -- -- -- -- -- 62* -- 92* -- 46 AST -- -- -- -- -- -- 45 -- 129* -- 77* < > = values in this interval not displayed. No results found for this or any previous visit (from the past 24 hour(s)). * Fransisca Banerjee RN - 03/08/2024 9:40 AM CDT Notified provider about indwelling delacruz catheter discussed removal or continued need. Did provider choose to remove indwelling delacruz catheter? NO Provider's delacruz indication for keeping indwelling delacruz catheter: Indication for continued use: Other - chronic indwelling delacruz catheter with plan to discharge with catheter in place Is there an order for indwelling delacruz catheter? YES *If there is a plan to keep delacruz catheter in place at discharge daily notification with provider is not necessary, but please add a notation in the treatment team sticky note that the patient will be discharging with the catheter. * Fox Watson MD - 03/08/2024 6:42 AM CDT Hospitalist Medicine Progress Note [facility] Prerna Major is a 78 year old lady with paraplegia secondary to transverse myelitis, chronic indwelling Delacruz's catheter for neurogenic bladder, rheumatoid arthritis on chronic prednisone therapy, peptic ulcer disease, insomnia, atrial fibrillation, scoliosis and constipation and chronic sacral wound presented to [facility] 03/06/2024 from her home to the wound clinic for regular appointment and was found to have a fever of 103.9 ??F with hypoxia and oxygen saturation in the 80s on room air, generalized weakness. Her blood pressure was 86/64 heart rate 115 WBC was 26.2 hemoglobin 10.5 urine showed positive nitrates large leukocyte Estrace greater than 182 WBCs with WBC clumps his blood grew E. coli which was treated with ceftriaxone and change in Delacruz's catheter in the emergency department patient was diagnosed with septic shock with lactic acid that was elevated at 4.4 Date of Admission: 03/06/2024 Assessment & Plan Septic shock secondary to E. coli UTI Acute E. coli CAUTI Patient presented with sepsis symptoms of fever tachycardia tachypnea hypoxia hypotension and leukocytosis with elevated lactic acid Urine had pyuria with positive leukocyte esterase and nitrates Urinalysis growing gram-negative rods and blood culture grew E. coli which is sensitive to ceftriaxone that the patient was started on 03/06/2024 Decubitus ulcers These are chronic in nature present before admission. Patient is following with wound care clinic she had a wound VAC earlier. WOC has been consulted. We do not suspect that decubitus ulcers are the cause of the fevers and sepsis Hypertension Patient is on treatment with metoprolol 50 mg daily as well as Lasix 20 mg daily. Blood pressure remains high probably on the basis of Solu-Cortef being given 50 mg every 6 hours. Will change Solu-Cortef to oral prednisone and monitor blood pressure closely Hypokalemia This has normalized Rheumatoid arthritis On chronic prednisone therapy stress dose steroids were ordered at admission but with sepsis over and blood pressure much higher this is being tapered down to oral prednisone Elevated liver function tests Probably as a result of hypoperfusion Atrial fibrillation On metoprolol for rate control Peptic ulcer disease Plan: Change Solu-Cortef to oral prednisone and monitor blood pressure closely Diet: Regular Diet Adult DVT Prophylaxis: Enoxaparin (Lovenox) SQ Delacruz Catheter: PRESENT, indication: Immobilization due to spinal injuries or other multiple traumatic injuries Code Status: No CPR- Pre-arrest intubation OK The patient's care was discussed with the Patient and RN. Fox Watson MD Hospitalist Service [facility] Interval History Symptoms No fever or chills today Review of Systems: Says she is already starting to feel better Data reviewed today: I reviewed all medications, new labs and imaging results over the last 24 hours. Physical Exam Vital Signs: Temp: 97.2 ??F (36.2 ??C) Temp src: Axillary BP: (!) 175/74 Pulse: 86 Resp: 20 SpO2: 95 % O2 Device: None (Room air) Weight: 134 lbs 14.74 oz GENERAL: Patient is not in acute distress HEENT: EOM+,Conjunctiva is clear NECK: no Jugular Venous distention HEART: S1 S2 regular Rate and Rhythm, there is no murmur, LUNGS: Respirations are not laboured, Lungs are clear to auscultation without Crepitations or Wheezing ABDOMEN: Soft , there is no tenderness , Bowel Sounds are Positive HEAD OF CYTOGENETICS: Alert, Oriented x 3, Data Recent Labs Lab 03/08/24 0224 03/07/24 1603 03/07/24 1213 03/07/24 0808 03/07/24 0431 03/07/24 0414 03/06/24 2146 03/06/24 1201 03/06/24 1005 03/06/24 0758 03/06/24 0052 WBC -- -- -- -- 16.3* -- -- -- -- -- 26.2* HGB -- -- -- -- 9.6* -- -- -- -- -- 10.5* MCV -- -- -- -- 91 -- -- -- -- -- 89 PLT -- -- -- -- 280 -- -- -- -- -- 321 NA -- -- -- -- 145 -- -- -- 143 -- 142 POTASSIUM -- -- -- -- 4.3 -- 4.0 -- 3.5 -- 3.3* CHLORIDE -- -- -- -- 111* -- -- -- 109* -- 103 CO2 -- -- -- -- 23 -- -- -- 21* -- 23 BUN -- -- -- -- 17.1 -- -- -- 21.1 -- 21.7 CR -- -- -- -- 0.24* -- -- -- 0.33* -- 0.31* ANIONGAP -- -- -- -- 11 -- -- -- 13 -- 16* HOLLY -- -- -- -- 8.1* -- -- -- 7.3* -- 8.4* GLC 165* 174* 169* < > 131* < > -- < > 157* < > 107* ALBUMIN -- -- -- -- 2.9* -- -- -- 2.7* -- 3.0* PROTTOTAL -- -- -- -- 5.0* -- -- -- 4.9* -- 5.2* BILITOTAL -- -- -- -- 0.2 -- -- -- 0.4 -- 0.3 ALKPHOS -- -- -- -- 275* -- -- -- 329* -- 361* ALT -- -- -- -- 62* -- -- -- 92* -- 46 AST -- -- -- -- 45 -- -- -- 129* -- 77* < > = values in this interval not displayed. No results found for this or any previous visit (from the past 24 hour(s)). * Apple Burt DO - 03/07/2024 6:42 AM CDT Images from the original note were not included. [facility] Medicine Progress Note - Hospitalist Service Date of Admission: 03/06/2024 Assessment & Plan Prerna Major is a 78 year old female with a history of paraplegia secondary to transverse myelitis, rheumatoid arthritis on chronic prednisone, peptic ulcer disease, insomnia, neurogenic bladder with chronic indwelling Delacruz catheter, atrial fibrillation, scoliosis and constipation who presents with generalized weakness and fever with workup suggestive of septic shock secondary to UTI. Problem list: Septic shock secondary to UTI E. Coli bacteremia Sepsis presentation - fever, tachy, tachypnea, hypoxia, hypotension, leukocytosis Chronic delacruz changed in ED UA significant for UTI Continues on IV rocephin until UC finalized Repeat blood culture from 03/06/24, so far, are negative No longer requiring vasopressor agents Stress dose steroids with IV hydrocortisone - wean; continue to home prednisone within 4 days as clinically improved quickly 03/07/24 - today still on hydrocortisone 50mg IV q6hr with plans to start titrating down 03/08/24 Decubitus ulcers These are chronic and she is followed in the wound care clinic. She has a wound VAC on 1 of these. Daughter changes packing on other Will request WOC consultation when available Hypokalemia Supplemented and normalized Rheumatoid arthritis: Stress dose steroids ordered - as above Chronic prednisone dose on hold Elevated LFTs Likely secondary to hypoperfusion from hypotension and sepsis Repeat LFT's improved this am Atrial fibrillation [employer] metoprolol dose of 50mg/day has been on hold while on vasopressors Resume dose at 25mg po daily today If BP tolerates - will increased to 50mg total dosing today 7. Drug allergies Listed to IV zosyn, tazobactam and vanco Tolerated rocephin and one dose of IV meropenem given Clinically Significant Risk Factors Present on Admission # Hypokalemia: Lowest K = 3.3 mmol/L in last 2 days, will replace as needed # Hypoalbuminemia: Lowest albumin = 3 g/dL at 03/06/2024 12:52 AM, will monitor as appropriate # Circulatory Shock: required vasopressors within past 24 hours Code status: DNR. She is okay with intubation. Admit to the ICU as an inpatient. Prophylaxis: PCD's. Disposition: Home in 3 to 5 days. 51 MINUTES SPENT BY ME on the date of service doing chart review, history, exam, documentation & further activities per the note. PPE Used: Mask, gloves Diet: cardiac diet DVT Prophylaxis: Enoxaparin (Lovenox) SQ Delacruz Catheter: PRESENT, indication: Immobilization due to spinal injuries or other multiple traumatic injuries Lines: PRESENT CVC Triple Lumen Right Internal jugular Non - valved (open ended)-Site Assessment: WDL Cardiac Monitoring: ACTIVE order. Indication: ICU Code Status: No CPR- Pre-arrest intubation OK Clinically Significant Risk Factors # Hypokalemia: Lowest K = 3.3 mmol/L in last 2 days, will replace as needed # Hypoalbuminemia: Lowest albumin = 2.7 g/dL at 03/06/2024 10:05 AM, will monitor as appropriate # Overweight: Estimated body mass index is 28.32 kg/m?? as calculated from the following: Height as of this encounter: 1.524 m (5'). Weight as of this encounter: 65.8 kg (145 lb)., PRESENT ON ADMISSION Disposition Plan Medically Ready for Discharge: Anticipated in 2-4 Days Apple Burt DO Hospitalist Service [facility] Securely message with [employer] (more info) Text page via [facility] Paging/Directory Interval History Slept well. Feeling much better. Hungry and no N/V. No fevers. No ZAMUDIO, CP or SOB this am. Has not experienced lightheadedness or dizziness overnight or this am. Physical Exam Vital Signs: Temp: 97.3 ??F (36.3 ??C) Temp src: Temporal BP: (!) 140/80 Pulse: 97 Resp: 15 SpO2: 96 % O2 Device: None (Room air) Oxygen Delivery: 1 LPM Weight: 145 lbs 0 oz GEN: Alert, awake, appears comfortable, no overt respiratory distress. HEENT: Normocephalic/atraumatic, no scleral icterus, no nasal discharge CV: somewhat distant but regular rate and rhythm, no loud murmur. S1 + S2 noted LUNGS: Clear to auscultation ant/lat bilaterally without rales/rhonchi/wheezing/retractions. Symmetric chest rise on inhalation noted. ABD: Active bowel sounds, soft, non-tender/non-distended. No rebound/guarding/rigidity. EX: less pretibial edema today bilaterally, edema in feet (chronic, per pt) No cyanosis. SKIN: Dry to touch, no new exanthems noted in the visualized areas. Medical Decision Making 52 MINUTES SPENT BY ME on the date of service doing chart review, history, exam, documentation & further activities per the note. Data Medications Current Facility-Administered Medications Medication Dose Route Frequency Provider Last Rate Last Admin norepinephrine (LEVOPHED) 4 mg in NS 250 mL infusion PREMIX 0.01-0.6 mcg/kg/min Intravenous Continuous Chago Vicente DO Stopped at 03/06/24 1500 Current Facility-Administered Medications Medication Dose Route Frequency Provider Last Rate Last Admin cefTRIAXone (ROCEPHIN) 2 g vial to attach to NS 100 ml bag for ADULTS or NS 50 ml bag for PEDS 2 g Intravenous Q24H Apple Burt DO Held at 03/06/24 1737 enoxaparin ANTICOAGULANT (LOVENOX) injection 40 mg 40 mg Subcutaneous Q24H Apple Burt DO 40 mg at 03/06/24 1234 [Held by provider] furosemide (LASIX) tablet 20 mg 20 mg Oral Daily Apple Bond DO gabapentin (NEURONTIN) capsule 300 mg 300 mg Oral TID Apple Burt DO 300 mg at 03/06/24 2139 hydrocortisone sodium succinate PF (solu-CORTEF) injection 50 mg 50 mg Intravenous Q6H Chago Vicente DO 50 mg at 03/07/24 0611 [Held by provider] metoprolol succinate ER (TOPROL XL) 24 hr tablet 50 mg 50 mg Oral Daily Apple Burt DO sodium chloride (PF) 0.9% PF flush 10-40 mL 10-40 mL Intracatheter Q8H Apple Bond DO20 mL at 03/07/24 0432 Labs and Imaging results below reviewed today. Recent Labs Lab 03/07/24 0431 03/06/24 0052 WBC 16.3* 26.2* HGB 9.6* 10.5* HCT 32.3* 34.4* MCV 91 89 PLT 280 321 Recent Labs Lab 03/07/24 0431 03/07/24 0414 03/06/24 2146 03/06/24 1942 03/06/24 1201 03/06/24 1005 03/06/24 0758 03/06/24 0052 NA 145 -- -- -- -- 143 -- 142 POTASSIUM 4.3 -- 4.0 -- -- 3.5 -- 3.3* CHLORIDE 111* -- -- -- -- 109* -- 103 CO2 23 -- -- -- -- 21* -- 23 ANIONGAP 11 -- -- -- -- 13 -- 16* GLC 131* 135* -- 149* < > 157* < > 107* BUN 17.1 -- -- -- -- 21.1 -- 21.7 CR 0.24* -- -- -- -- 0.33* -- 0.31* GFRESTIMATED >90 -- -- -- -- >90 -- >90 HOLLY 8.1* -- -- -- -- 7.3* -- 8.4* < > = values in this interval not displayed. 7-Day Micro Results Collected Updated Procedure Result Status 03/06/2024 1646 03/06/2024 1707 Blood Culture Wrist, Left [[id number]] Blood from Wrist, Left In process Component Value No component results 03/06/2024 1639 03/06/2024 1707 Blood Culture Arm, Left [[id number]] Blood from Arm, Left In process Component Value No component results 03/06/2024 0254 03/06/2024 0712 Urine Culture [[id number]] Urine, Catheter In process Component Value No component results 03/06/2024 0155 03/06/2024 1535 Blood Culture Hand, Left [[id number]] (Abnormal) Blood from Hand, Left Preliminary result Component Value Culture Positive on the 1st day of incubation [P] Gram negative bacilli [P] 1 of 2 bottles 03/06/2024 0155 03/06/2024 1746 Verigene GN Panel [[id number]] (Abnormal) Blood from Hand, Left Final result Component Value Acinetobacter species Not Detected Citrobacter species Not Detected Enterobacter species Not Detected Proteus species Not Detected Escherichia coli Detected Positive for Escherichia coli by Verigene multiplex nucleic acid test. Final identification and antimicrobial susceptibility testing will be verified by standard methods. Verigene test will not distinguish E. coli from Shigella species including Shigella dysenteriae, Shigella flexneri, Shigella boydii, and Shigella sonnei. Specimens containing Shigella species or E. coli will be reported as positive for E. coli. Klebsiella pneumoniae Not Detected Klebsiella oxytoca Not Detected Pseudomonas aeruginosa Not Detected CTX-M Not Detected KPC Not Detected NDM Not Detected VIM Not Detected IMP Not Detected OXA Not Detected 03/06/2024 0145 03/06/2024 0228 Symptomatic Influenza A/B, RSV, & SARS-CoV2 PCR (COVID-19) Nose[[id number]] Swab from Nose Final result Component Value Influenza A PCR Negative Influenza B PCR Negative RSV PCR Negative SARS CoV2 PCR Negative NEGATIVE: SARS-CoV-2 (COVID-19) RNA not detected, presumed negative. 03/06/2024 0056 03/06/2024 1802 Blood Culture Peripheral Blood [[id number]] (Abnormal) Peripheral Blood Preliminary result Component Value Culture Positive on the 1st day of incubation [P] Gram negative bacilli [P] 2 of 2 bottles Gram positive bacilli [P] 1 of 2 bottles Recent Labs Lab 03/07/24 0431 03/07/24 0414 03/06/24 2146 03/06/24 1942 03/06/24 1201 03/06/24 1005 03/06/24 0758 03/06/24 0052 NA 145 -- -- -- -- 143 -- 142 POTASSIUM 4.3 -- 4.0 -- -- 3.5 -- 3.3* CHLORIDE 111* -- -- -- -- 109* -- 103 CO2 23 -- -- -- -- 21* -- 23 ANIONGAP 11 -- -- -- -- 13 -- 16* GLC 131* 135* -- 149* < > 157* < > 107* BUN 17.1 -- -- -- -- 21.1 -- 21.7 CR 0.24* -- -- -- -- 0.33* -- 0.31* GFRESTIMATED >90 -- -- -- -- >90 -- >90 HOLLY 8.1* -- -- -- -- 7.3* -- 8.4* PROTTOTAL 5.0* -- -- -- -- 4.9* -- 5.2* ALBUMIN 2.9* -- -- -- -- 2.7* -- 3.0* BILITOTAL 0.2 -- -- -- -- 0.4 -- 0.3 ALKPHOS 275* -- -- -- -- 329* -- 361* AST 45 -- -- -- -- 129* -- 77* ALT 62* -- -- -- -- 92* -- 46 < > = values in this interval not displayed. No results found for this or any previous visit (from the past 24 hour(s)). * Apple Burt DO - 03/06/2024 6:24 AM CDT Images from the original note were not included. [facility] Medicine Progress Note - Hospitalist Service Date of Admission: 03/06/2024 Assessment & Plan Prerna Major is a 78 year old female with a history of paraplegia secondary to transverse myelitis, rheumatoid arthritis on chronic prednisone, peptic ulcer disease, insomnia, neurogenic bladder with chronic indwelling Delacruz catheter, atrial fibrillation, scoliosis and constipation who presents with generalized weakness and fever with workup suggestive of septic shock secondary to UTI. Problem list: Septic shock secondary to suspected UTI Sepsis presentation - fever, tachy, tachypnea, hypoxia, hypotension, leukocytosis Chronic delacruz changed in ED UA significant for UTI Continues on IV rocephin until UC finalized Remains on IV levophed Will discontinue continuous IVF now NS bolus prn Stress dose steroids with IV hydrocortisone Addendum - 1600 Blood culture 1/2 now positive for GNB Continue IV rocephin until more information available on UC Repeat BC x 2 Addendum - 1730 RN states that the second blood culture is now positive for gram + and gram - bacilli Anaphylaxic allergy listed to vanco Clinically is much improved - eating, off vasopressors Will continue with current antibiotic treatment, for now, and await ID of organisms in blood culture as clinically improving and in the setting of significant anaphylaxis with recent IV abx given. D/W bedside RN. Will continue with close clinical monitoring in the ICU. Decubitus ulcers These are chronic and she is followed in the wound care clinic. She has a wound VAC on 1 of these. Daughter changes packing on other Will request [facility] consultation when available Hypokalemia Will supplement per protocol Rheumatoid arthritis: Stress dose steroids ordered Chronic prednisone dose on hold Elevated LFTs Likely secondary to hypoperfusion from hypotension and sepsis Repeat LFT's in the am Atrial fibrillation [employer] metoprolol dose of 50mg/day - on hold while on vasopressors Continue with tele monitoring and watch HR closely Prelim home med list does not appear to list chronic anticoagulation 7. Drug allergies Listed to IV zosyn, tazobactam and vanco Tolerated rocephin and one dose of IV meropenem given Clinically Significant Risk Factors Present on Admission # Hypokalemia: Lowest K = 3.3 mmol/L in last 2 days, will replace as needed # Hypoalbuminemia: Lowest albumin = 3 g/dL at 03/06/2024 12:52 AM, will monitor as appropriate # Circulatory Shock: required vasopressors within past 24 hours Code status: DNR. She is okay with intubation. Admit to the ICU as an inpatient. Prophylaxis: PCD's. Disposition: Home in 3 to 5 days. 50 MINUTES SPENT BY ME on the date of service doing chart review, history, exam, documentation & further activities per the note. PPE Used: Mask, gloves Diet: NPO for Medical/Clinical Reasons Except for: Meds, Ice Chips DVT Prophylaxis: Enoxaparin (Lovenox) SQ Delacruz Catheter: Not present Lines: PRESENT Cardiac Monitoring: ACTIVE order. Indication: ICU Code Status: No CPR- Pre-arrest intubation OK Clinically Significant Risk Factors Present on Admission # Hypokalemia: Lowest K = 3.3 mmol/L in last 2 days, will replace as needed # Hypoalbuminemia: Lowest albumin = 3 g/dL at 03/06/2024 12:52 AM, will monitor as appropriate # Circulatory Shock: required vasopressors within past 24 hours Disposition Plan Medically Ready for Discharge: Anticipated in 2-4 Days Apple Burt DO Hospitalist Service [facility] Securely message with [employer] (more info) Text page via [employer] Paging/Directory Interval History Feeling ok. Hungry. No current ZAMUDIO, N/V, F/C, CP or SOB at this time. Physical Exam Vital Signs: Temp: 98.6 ??F (37 ??C) Temp src: Oral BP: 99/51 Pulse: 95 Resp: 26 SpO2: 96 % O2 Device: Nasal cannula Oxygen Delivery: 1 LPM Weight: 135 lbs 0 oz GEN: Alert, awake, appears comfortable, no overt respiratory distress. HEENT: Normocephalic/atraumatic, no scleral icterus, no nasal discharge CV: somewhat distant but regular rate and rhythm, no loud murmur. S1 + S2 noted, no S3 or S4. LUNGS: Clear to auscultation ant/lat bilaterally without rales/rhonchi/wheezing/retractions. Symmetric chest rise on inhalation noted. ABD: Active bowel sounds, soft, non-tender/non-distended. No rebound/guarding/rigidity. EX: trace pretibial edema bilaterally. No cyanosis. No new joint synovitis noted. SKIN: Dry to touch, no new exanthems noted in the visualized areas. Medical Decision Making 52 MINUTES SPENT BY ME on the date of service doing chart review, history, exam, documentation & further activities per the note. Data Medications Current Facility-Administered Medications Medication Dose Route Frequency Provider Last Rate Last Admin lactated ringers infusion Intravenous Continuous Chago Vicente DO norepinephrine (LEVOPHED) 4 mg in NS 250 mL infusion PREMIX 0.01-0.6 mcg/kg/min Intravenous Continuous Chago Vicente DO 11.5 mL/hr at 03/06/24 0522 0.05 mcg/kg/min at 03/06/24 0522 Current Facility-Administered Medications Medication Dose Route Frequency Provider Last Rate Last Admin hydrocortisone sodium succinate PF (solu-CORTEF) injection 50 mg 50 mg Intravenous Q6H Chago Vicente DO meropenem (MERREM) 1 g vial to attach to NS 100 mL bag 1 g Intravenous Q8H Chago Vicente DO Labs and Imaging results below reviewed today. Recent Labs Lab 03/06/24 0052 WBC 26.2* HGB 10.5* HCT 34.4* MCV 89 PLT 321 Recent Labs Lab 03/06/24 1606 03/06/24 1201 03/06/24 1005 03/06/24 0758 03/06/24 0052 NA -- -- 143 -- 142 POTASSIUM -- -- 3.5 -- 3.3* CHLORIDE -- -- 109* -- 103 CO2 -- -- 21* -- 23 ANIONGAP -- -- 13 -- 16* GLC 123* 156* 157* < > 107* BUN -- -- 21.1 -- 21.7 CR -- -- 0.33* -- 0.31* GFRESTIMATED -- -- >90 -- >90 HOLLY -- -- 7.3* -- 8.4* < > = values in this interval not displayed. 7-Day Micro Results Collected Updated Procedure Result Status 03/06/2024 1646 03/06/2024 1707 Blood Culture Wrist, Left [[id number]] Blood from Wrist, Left In process Component Value No component results 03/06/2024 1639 03/06/2024 1707 Blood Culture Arm, Left [[id number]] Blood from Arm, Left In process Component Value No component results 03/06/2024 0254 03/06/2024 0712 Urine Culture [[id number]] Urine, Catheter In process Component Value No component results 03/06/2024 0155 03/06/2024 1535 Blood Culture Hand, Left [[id number]] (Abnormal) Blood from Hand, Left Preliminary result Component Value Culture Positive on the 1st day of incubation [P] Gram negative bacilli [P] 1 of 2 bottles 03/06/2024 0155 03/06/2024 1535 Verigene GN Panel [[id number]] Blood from Hand, Left In process Component Value No component results 03/06/2024 0145 03/06/2024 0228 Symptomatic Influenza A/B, RSV, & SARS-CoV2 PCR (COVID-19) Nose[[id number]] Swab from Nose Final result Component Value Influenza A PCR Negative Influenza B PCR Negative RSV PCR Negative SARS CoV2 PCR Negative NEGATIVE: SARS-CoV-2 (COVID-19) RNA not detected, presumed negative. 03/06/2024 0056 03/06/2024 1701 Blood Culture Peripheral Blood [[id number]] (Abnormal) Peripheral Blood Preliminary result Component Value Culture Positive on the 1st day of incubation [P] Gram negative bacilli [P] 1 of 2 bottles Gram positive bacilli [P] 1 of 2 bottles Recent Labs Lab 03/06/24 1606 03/06/24 1201 03/06/24 1005 03/06/24 0758 03/06/24 0052 NA -- -- 143 -- 142 POTASSIUM -- -- 3.5 -- 3.3* CHLORIDE -- -- 109* -- 103 CO2 -- -- 21* -- 23 ANIONGAP -- -- 13 -- 16* GLC 123* 156* 157* < > 107* BUN -- -- 21.1 -- 21.7 CR -- -- 0.33* -- 0.31* GFRESTIMATED -- -- >90 -- >90 HOLLY -- -- 7.3* -- 8.4* PROTTOTAL -- -- 4.9* -- 5.2* ALBUMIN -- -- 2.7* -- 3.0* BILITOTAL -- -- 0.4 -- 0.3 ALKPHOS -- -- 329* -- 361* AST -- -- 129* -- 77* ALT -- -- 92* -- 46 < > = values in this interval not displayed. Recent Results (from the past 24 hour(s)) XR Chest Port 1 View Narrative EXAM: XR CHEST PORT 1 VIEW LOCATION: [facility] DATE: 03/06/2024 INDICATION: Fever COMPARISON: 12/21/2013 Impression IMPRESSION: Mild cardiac enlargement. Normal pulmonary vascularity. Linear scarring right lung base. Marked vascular calcification. Postoperative changes thoracic and lumbar spine. XR Chest Port 1 View Narrative EXAM: XR CHEST PORT 1 VIEW LOCATION: [facility] DATE: 03/06/2024 INDICATION: central line confirmation of placement COMPARISON: 03/06/2024 1:28 AM Impression IMPRESSION: Interval placement of a right IJ central venous catheter which courses at least to the level of the superior cavoatrial junction but is partially obscured by overlapping metallic spinal hardware. Otherwise no interval change. 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 Problem list: Septic shock secondary to suspected UTI: The patient's only symptoms are that of weakness, fatigue,mild confusion and high-grade fever. She denies any abdominal pain or changes in her chronic pain. She denies any new back pain. She denies any headache, visual changes, or neck stiffness. She deniesa cough or shortness of breath. Her Delacruz catheter was changed in the ED and a fresh UA was obtained which is indicative of a UTI. We do not have cultures available in our system or in care everywhere at this time but are working on obtaining records from [place]. The patient does report a severe anaphylactic allergy to a previous antibiotic but cannot recall which antibiotic. I suspect this is a gram-negative bobby so we will hold off on vancomycin although she previously did have an MRSA infection with bacteremia. Ceftriaxone has been hung in the ED and so far she is tolerating it. We willcontinue to watch closely for evidence of hypersensitivity or anaphylaxis. Initial vital signs showed a temperature of 102.2 with a heart rate of 128. Blood pressure had trended down to the 70s after 2 L of IV fluid so a central line was inserted and the patient was started on norepinephrine with good improvement of her vital signs. She has now fully defervesced as well lactate has improved from 4.4 to 2.1. Procalcitonin is elevated at 2.4 and she has a leukocytosis of 26.2. We will continue lactated ringer at 150 cc/h and start IV hydrocortisone stress dose steroids due to her chronic prednisone that she takes for rheumatoid arthritis. Decubitus ulcers: These are chronic and she is followed in the wound care clinic. She has a wound VAC on 1 of these. Will request [facility] consultation. I do not suspect that her wounds are the source of her sepsis. Hypokalemia: Start the potassium replacement protocol. Rheumatoid arthritis: She is on chronic prednisone. This will be held while we are starting IV hydrocortisone. Peptic ulcer disease: Start IV Protonix. Atrial fibrillation: Hold prior to admission metoprolol with hypotension. Await medication reconciliation to determine if she is on anticoagulation for stroke prophylaxis. Clinically Significant Risk Factors Present on Admission # Hypokalemia: Lowest K = 3.3 mmol/L in last 2 days, will replace as needed # Hypoalbuminemia: Lowest albumin = 3 g/dL at 03/06/2024 12:52 AM, will monitor as appropriate # Circulatory Shock: required vasopressors within past 24 hours Code status: DNR. She is okay with intubation. This was all confirmed with family at the bedside. Admit to the ICU as an inpatient. Prophylaxis: PCD's. Disposition: Home in 3 to 5 days. 80 MINUTES SPENT BY ME on the date of service doing chart review, history, exam, documentation & further activities per the note. Addendum: Records from [place] came in previous urine cultures were resistant to cephalosporins.She has listed allergies to Zosyn, tazobactam, and vancomycin. Will change antibiotics to meropenem. Chief Complaint: Fever. History of Present Illness: Prerna Major is a 78 year old female who presents with fever and family. History was obtained from my discussion with the patient at the bedside. I also discussed the case with the ED provider. The electronic medical record was also reviewed. The patient has a history of paraplegia secondary to transverse myelitis. She has a chronic Delacruz catheter due to neurogenic bladder. She also has decubitus ulcers that are followed by the wound careclinic. In fact on Friday she had her bandages changed and evidently the wounds looked good. Later on the evening she began feeling poorly. The patient's only symptoms are that of weakness, fatigue, mild confusion and high-grade fever. She denies any abdominal pain or changes in her chronic pain. She denies any new back pain. She denies any headache, visual changes, or neck stiffness. She denies a cough or shortness of breath. Her Delacruz catheter was changed in the ED and a fresh UA was obtainedwhich is indicative of a UTI. We do not have cultures available in our system or in care everywhereat this time but are working on obtaining records from [place]. The patient does report a severeanaphylactic allergy to a previous antibiotic but cannot recall which antibiotic. Here in the ED her temperature is 102.2, heart rate 137, blood pressure 118/54, respiratory 26 and oxygen saturation 93% on room air. Labs show normal basic metabolic panel except for potassium of 3.3 and an anion gap of 16. Bicarb is 23. Alkaline phosphatase is 361 with an AST of 77. Lactate is 4.4 with a value of 2.1 on recheck. Procalcitonin is 2.4 with hemoglobin 10.5 and white blood cells 26.2. Viral respiratory testing is negative. Blood cultures obtained and pending. Chest x-ray is clear. Past Medical History: Past Medical History: Diagnosis Date Arthritis Decubitus ulcer of right ischial area Gastric ulcer History of transverse myelitis MRSA (methicillin resistant Staphylococcus aureus) 12/02/2013 Blood Neurogenic bladder Paraplegia Paroxysmal atrial fibrillation RA (rheumatoid arthritis) Sacral decubitus ulcer Past Surgical History: Past Surgical History: Procedure Laterality Date EGD Social History: Social History Tobacco Use Smoking status: Not on file Smokeless tobacco: Not on file Substance Use Topics Alcohol use: Not on file Family History: The family history was fully reviewed and non-contributory in this case. Allergies: No Known Allergies Medications: Prior to Admission medications Medication Sig Last Dose Taking? Auth Provider [facility] End Date bisacodyl (DULCOLAX) [address] 1 suppository (10 mg) rectally daily as needed Don Ramirez MD LORazepam (ATIVAN) 0.5 MG tablet Take 1 tablet (0.5 mg) by mouth 2 times daily as needed for anxiety Don Ramirez MD metoprolol (LOPRESSOR) 100 MG tablet Take 0.5 tablets (50 mg) by mouth 2 times daily Don Ramirez MD Yes NONFORMULARY Uses Collagen Hydrogel Wound dressing to pressure sore daily. Unknown, Entered By History ondansetron (ZOFRAN-ODT) 4 MG disintegrating tablet Take 1 tablet (4 mg) by mouth every 6 hours as needed for nausea Don Ramirez MD polyethylene glycol (MIRALAX/GLYCOLAX) packet Take 17 g by mouth daily as needed Don Ramirez MD PREDNISONE PO Take 5 mg by mouth daily Reported, Patient senna-docusate (SENOKOT-S;PERICOLACE) 8.6-50 MG per tablet Take 1 tablet by mouth 2 times daily Don Ramirez MD Review of Systems: A Comprehensive greater than 10 system review of systems was carried out. Pertinent positives and negatives are noted above. Otherwise negative for contributory information. Physical Exam: Blood pressure 92/49, pulse 94, temperature 98.6 ??F (37 ??C), temperature source Oral, resp. rate 26, weight 61.2 kg (135 lb), SpO2 95%. Wt Readings from Last 1 Encounters: 03/06/24 61.2 kg (135 lb) Exam: GENERAL: No apparent distress. Awake, alert, and fully oriented. HEENT: Normocephalic, atraumatic. Extraocular movements intact. CARDIOVASCULAR: Regular rate and rhythm without murmurs or rubs. No S3. PULMONARY: Clear to auscultation bilaterally. ABDOMINAL: Soft, non-tender, non-distended. Bowel sounds normoactive. EXTREMITIES: No cyanosis or clubbing. No appreciable edema. NEUROLOGICAL: CN 2-12 grossly intact, baseline neurological deficits. DERMATOLOGICAL: No rash, ulcer, bruising, nor jaundice. Decubitus ulcers present. Data: EKG: Personally reviewed. Laboratory: Recent Labs Lab 03/06/24 0052 WBC 26.2* HGB 10.5* HCT 34.4* MCV 89 PLT 321 Recent Labs Lab 03/06/24 0052 NA 142 POTASSIUM 3.3* CHLORIDE 103 CO2 23 ANIONGAP 16* GLC 107* BUN 21.7 CR 0.31* GFRESTIMATED >90 HOLLY 8.4* Recent Labs Lab 03/06/24 0313 03/06/24 0052 LACT 2.1* 4.4* Recent Labs Lab 03/06/24 0254 COLOR Yellow APPEARANCE Cloudy* URINEGLC Negative URINEBILI Negative URINEKETONE Negative SG 1.018 UBLD Small* URINEPH 5.5 PROTEIN 100* NITRITE Positive* LEUKEST Large* RBCU 17* WBCU >182* No results for input(s): CULT in the last 168 hours. Imaging: Recent Results (from the past 24 hour(s)) XR Chest Port 1 View Narrative EXAM: XR CHEST PORT 1 VIEW LOCATION: [facility] DATE: 03/06/2024 INDICATION: Fever COMPARISON: 12/21/2013 Impression IMPRESSION: Mild cardiac enlargement. Normal pulmonary vascularity. Linear scarring right lung base. Marked vascular calcification. Postoperative changes thoracic and lumbar spine. XR Chest Port 1 View Narrative EXAM: XR CHEST PORT 1 VIEW LOCATION: [facility] DATE: 03/06/2024 INDICATION: central line confirmation of placement COMPARISON: 03/06/2024 1:28 AM Impression IMPRESSION: Interval placement of a right IJ central venous catheter which courses at least to the level of the superior cavoatrial junction but is partially obscured by overlapping metallic spinal hardware. Otherwise no interval change. Chago Vicente DO [facility] [place] [address] 03/06/2024 documented in this encounter Consult Notes * Leela Dias, RD - 03/12/2024 2:44 PM CDT CLINICAL NUTRITION SERVICES - ASSESSMENT NOTE Recommendations: - Continue diet as ordered. Consider an additional and protein-containing snack or small meal dailyto best meet nutrition/wound healing needs. - Offered oral supplements, pt politely declined. - Offered MVI/M, pt politely declined. MALNUTRITION: % Weight Loss: Pt denies, no wt hx on file % Intake: <75% for > 7 days (moderate malnutrition) Subcutaneous Fat Loss: None observed Muscle Loss: Temporal region mild depletion and Clavicle bone region mild depletion --> not using LEs w/ paraplegia hx Fluid Retention: Trace to moderate/generalized --> unclear if masking wt trends, very limited wthx on file and pt reports being above usual body weight Malnutrition Diagnosis: Unable to determine due to insufficient information REASON FOR ASSESSMENT Prerna Major is a 78 year old female seen by Registered Dietitian for length of stay. PMH of: Paraplegia w/ transverse myelitis, RA, peptic ulcer disease, a fib, scoliosis, constipation. Admit 2/2: UTI, septic shock. NUTRITION HISTORY - Information obtained from patient and chart. - Diet at home: Regular w/ meals BID(breakfast and dinner) + afternoon snack. - Barriers to PO intakes: Denies low appetite or changes to PO intakes [employer] PATTERN[employer]. - Use of oral supplements: None. - Allergies: NKFA. CURRENT NUTRITION ORDERS Diet Order: Regular Current Intake/Tolerance: 50-100% intakes based on flowsheet review since admission. Ordering meals BID on average. Prerna reports her appetite has been ok here, but that she's eating a later breakfast than usual, so only have 2 meals daily. When discussing areas on skin/PIs, offered scheduled snack, oral supplement, Expedite or MVI/M. Patient politely declined as she reports going home soon. ANTHROPOMETRICS Height: 5' 0 Weight: 138 lbs 10.71 oz Body mass index is 27.08 kg/m??. Weight Status: Overweight BMI 25-29.9 Weight History: Wt Readings from Last 10 Encounters: 03/09/24 62.9 kg (138 lb 10.7 oz) 12/12/13 64.9 kg (143 lb) - Has trace to moderate/generalized edema documented. - No wt hx on file, care everywhere reviewed. - Prerna reports her wt fluctuates w/ fluid but that she normally weighs around 130#. LABS: Reviewed. MEDICATIONS: Reviewed: - Lasix - Prednisone GI: Stooling patterns noted w/ most recent documented BMs 03/09-03/10. SKIN: WOCN following w/ documented stage 4 PI to R IT and coccyx, PI (no formal staging) and traumato L foot. ASSESSED NUTRITION NEEDS PER APPROVED PRACTICE GUIDELINES: Dosing Weight 63 kg - dry wt? Estimated Energy Needs: 25-30 Kcal/Kg Justification: maintenance, consideration of wound healing Estimated Protein Needs: >/=1.3 g pro/Kg Justification: wound healing and preservation of lean body mass Estimated Fluid Needs: per MD NUTRITION DIAGNOSIS: Inadequate oral intake related to increased wound healing needs as evidenced by suspect meeting <75% of nutrition needs acutely w/ documented stage 4 PI, assessed needs as outlined. NUTRITION INTERVENTIONS Recommendations / Nutrition Prescription See above. Implementation Nutrition education: Provided education on above. Nutrition goals: PO intakes of at least 75% meals or snacks TID while admitted. MONITORING AND EVALUATION: Progress towards goals will be monitored and evaluated per protocol and Practice Guidelines Leela Dias RDN, LD Clinical Dietitian 3rd floor/ICU: [phone] All other floors: [phone] Weekend/holiday: [phone] Office: [phone] * Tanvi Smiley RN - 03/09/2024 3:01 PM CDTAssociated Order(s): CARE MANAGEMENT / SOCIAL WORK IP CONSULT Care Management Initial Consult General Information Assessment completed with: Patient, Children, Type of CM/SW Visit: Initial Assessment Primary Care Provider verified and updated as needed: Readmission within the last 30 days: Reason for Consult: discharge planning Advance Care Planning: Communication Assessment Patient's communication style: spoken language (Paraguayan or Bilingual) Hearing Difficulty or Deaf: yes Wear Glasses or Blind: yes Cognitive Cognitive/Neuro/Behavioral: WDL Level of Consciousness: alert Arousal Level: opens eyes spontaneously Orientation: oriented x 4 Mood/Behavior: calm, cooperative Best Language: 0 - No aphasia Speech: clear, spontaneous Living Environment: People in home: child(suha), adult, spouse Current living Arrangements: house Able to return to prior arrangements: yes Family/Social Support: Care provided by: child(suha), homecare agency Provides care for: no one, unable/limited ability to care for self Marital Status: Children Description of Support System: Supportive, Involved Current Resources: Patient receiving home care services: Yes Skilled Home Care Services: [facility], Home Health Aid Community Resources: Equipment currently used at home: hospital bed, lift device, wheelchair, manual Supplies currently used at home: Employment/Financial: Employment Status: Financial Concerns: Does the patient's insurance plan have a 3 day qualifying hospital stay waiver? Yes Which insurance plan 3 day waiver is available? Alternative insurance waiver Will the waiver be used for post-acute placement? No Lifestyle & Psychosocial Needs: Social Determinants of Health Food Insecurity: Not on file Depression: Not on file Housing Stability: Not on file Tobacco Use: Not on file (03/16/2021) Financial Resource Strain: Not on file Alcohol Use: Not on file Transportation Needs: Not on file Physical Activity: Not on file Interpersonal Safety: Not on file Stress: Not on file Social Connections: Unknown (02/03/2022) Received from [employer] [facility] Social Connections Frequency of Communication with Friends and Family: Not on file Health Literacy: Not on file Functional Status: Prior to admission patient needed assistance: Dependent ADLs:: Bathing, Dressing, Grooming, Positioning, Transfers, Wheelchair-with assist, Toileting Dependent IADLs:: Cleaning, Cooking, Laundry, Shopping, Meal Preparation, Medication Management, Money Management, Transportation Additional Information: Consult to assist with discharge planning. Patient admitted with generalized weakness and fever secondary to UTI. Went to meet with patient regarding discharge planning but she was feeling too fatigued to talk. Permission granted to speak with her daughter Elvi. Contacted Elvi via phone. She confirms that patient and spouse who has dementia both live with her and she is their primary primary care nurse practitioner. They have a wheelchair, lift, and hospital bed. She feels that they have the appropriate DME at this time. She does not qualify for any [facility] services at this time due to income. Patient is open to [facility] for RN and EDUCATION AND TRAINING MANAGER. This was verified and they will need new orders ondischarge. They are currently providing wound vac changes twice a week and the third dressing change is done at [place] [facility]. They also assist with her other wound and the daughter performsthis wound care the other days. Daughter states that there has been concern that this wound is tunneling and may connect with the other that has the vac. They have been talking about placing a wound vac on this as well per the daughter. Updated [facility] nurse on this information. CM team will continue to follow for discharge planning. Tanvi Smiley RN BSN OCN Manager Database Administration [facility] [phone] * Crescencio Roach RN - 03/09/2024 11:58 AM CDTAssociated Order(s): WOUND OSTOMY CONTINENCE NURSE IP CONSULT Images from the original note were not included. [facility] WO Nurse Inpatient Assessment Consulted for: Sacrum Patient History (according to provider note(s): Prerna Major is a 78 year old lady with paraplegia secondary to transverse myelitis, chronic indwelling Delacruz's catheter for neurogenic bladder, rheumatoid arthritis on chronic prednisone therapy, peptic ulcer disease, insomnia, atrial fibrillation, scoliosis and constipation and chronic sacral wound presented to [facility] 03/06/2024 from her home to the wound clinic for regular appointment and was found to have a fever of 103.9 ??F with hypoxia and oxygen saturation in the 80s on room air, generalized weakness. Her blood pressure was 86/64 heart rate 115 WBC was 26.2 hemoglobin 10.5 urine showed positive nitrates large leukocyte Estrace greater than 182 WBCs with WBC clumps his blood grew E. coli which was treated with ceftriaxone and change in Delacruz's catheter in the emergency department patient was diagnosed with septic shock with lactic acid that was elevated at 4.4 Assessment: Areas visualized during today's visit: Sacrum/coccyx, Right IT, left foot Negative pressure wound therapy applied to: Right IT Last photo: 03/09/24 Wound due to: Pressure Injury, Stage 4 present on admission Wound history/plan of care: Patient reports having wound for years. Is followed at wound clinic in [place] and is currently using NPWT. Patient requests to continue using her Medela pump and her daughter brought in supplies. Surgical date: NA Service following: WOC Date Negative Pressure Wound Therapy initiated: as outpatient Interventions in place: repositioning, specialty surface in use, and offloading Is patient???s nutritional status compromised? yes If yes, what interventions are in place? Protein supplements Reason for initiating vac therapy? Prior history of delayed wound healing Which?of?the?following?co-morbidities?apply? Immobility If diabetic is patient on a diabetic management program? N/A Is osteomyelitis present in wound? Unknown but likely chronic if present If yes what treatments are in place? N/A Wound base: 100 % pink non-granular tissue, bone palpable but not exposed Palpation of the wound bed: firm Drainage: moderate Volume in cannister: 100 Last cannister change date: 03/05/24 (per patient) Description of drainage: serosanguinous Measurements (length x width x depth, in cm) 2 x 2 x 3 cm Tunneling N/A Undermining N/A Periwound skin: Scar tissue, small area of dry drainage Color: normal and consistent with surrounding tissue Temperature: normal Odor: none Pain: moderate Pain intervention prior to dressing change: oral oxycodone Treatment goal: Heal and Increase granulation STATUS: initial assessment Supplies ordered: at bedside Number of foam pieces removed from a wound (excluding foam for bridge) : 1 Donaldo Barclay Verified this matched the number of foam pieces applied last dressing change: N/A Number of foam pieces packed into wound (excluding foam for bridge) : 1 GranuFoam Black Pressure Injury Location: Coccyx Last photo: 03/09/24 Wound type: Pressure Injury Pressure Injury Stage: 4, present on admission Wound history/plan of care: Patient reports wound has been present for a couple months. Is followedat wound clinic in [place]. Currently using Vashe packing. Per patient they were considering starting NPWT to this wound as well on Friday. Will re-evaluate site for possible NPWT if patient stillhere Friday. Wound base: 60 % red non-granular tissue, 40 % fibrin, slough, and adipose tissue Palpation of the wound bed: normal Drainage: moderate Description of drainage: serosanguinous and purulent Measurements (length x width x depth, in cm) 2.5 x 3.5 x 2.5 cm Tunneling N/A Undermining up to 3 cm from 3-5 o'clock Periwound skin: Scar tissue Color: purple Temperature: normal Odor: none Pain: moderate Pain intervention prior to dressing change: oral oxycodone Treatment goal: Heal and Remove necrotic tissue STATUS: initial assessment Supplies ordered: at bedside My PI Risk Assessment Sensory Perception: 2 - Very Limited Moisture: 3 - Occasionally moist Activity: 1 - Bedfast Mobility: 2 - Very limited Nutrition: 3 - Adequate Friction/Shear: 2 - Potential problem TOTAL: 13 Wound location: Left dorsal foot Last photo: 03/09/24 Wound due to: Pressure Injury and Trauma Wound history/plan of care: Patient reports she doesn't know how injury occurred. Based on locationand appearance of wound suspect this may be from a compression garment which got bunched up. Wound base: 100 % dry drainage Palpation of the wound bed: normal Drainage: none Description of drainage: none Measurements (length x width x depth, in cm): 0.7 x 2.5 cm Tunneling: N/A Undermining: N/A Periwound skin: Intact, additional 0.2x0.2cm area of dry drainage on medial foot Color: normal and consistent with surrounding tissue Temperature: normal Odor: none Pain: denies Pain interventions prior to dressing change: N/A Treatment goal: Heal and Protection STATUS: initial assessment Supplies ordered: at bedside Treatment Plan: Negative pressure wound therapy plan: Wound location: Right IT Change Days: / Fri this week, MWF starting 03/15/24 by WOC RN Supplies (including all accessories) used: medium Black foam (currently using home Medela pump and dressing) Cleanse with Vashe prior to replacing NPWT Suction setting: -100 camp boss to assess integrity of dressing and ensure suction is set at appropriate level every shift. Date canister. Chart canister output every shift. Change cannister weekly and PRN if full/occluded Remove foam dressing and replace with BID normal saline moist gauze dressing if: -a dressing failure which cannot be repaired within 2 hours -patient is discharging to home without a home pump -patient is discharging to a facility outside the local area -if a dressing is a Silver Foam, remove before Radiation Therapy or MRI The hospital VAC pump is not to be discharged with the patient.?Ensure to disconnect patient from machine prior to discharge. Then, - If a home KCI VAC pump has been delivered, connect home cannister to dressing tubing then connectcannister to home pump and turn on machine - If transferring to a nearby facility with a KCI vac, can disconnect and clamp tubing then cover end with glove so can be reconnected within 2 hours Coccyx wound(s): Daily Cleanse wound and surrounding skin with Vashe Packing with Vashe moistened gauze Cover with Mepilex sacral Left foot wound(s): Every 3 days Cleanse with wound cleanser and dry Apply Mepilex 4x4 Pressure Injury Prevention (PIP) Plan: If patient is declining pressure injury prevention interventions: Explore reason why and address patient's concerns, Educate on pressure injury risk and prevention intervention(s), and If patient is still declining, document informed refusal Mattress: Follow bed algorithm, reassess daily and order specialty mattress, if indicated. HOB: Maintain at or below 30 degrees, unless contraindicated Repositioning in bed: Every 1-2 hours and Left/right positioning; avoid supine Heels: Pillows under calves Moisture Management: Avoid brief in bed Under Devices: Inspect skin under all medical devices during skin inspection , Ensure tubes are stabilized without tension, and Ensure patient is not lying on medical devices or equipment when repositioned Ask provider to discontinue device when no longer needed. Orders: Written RECOMMEND PRIMARY TEAM ORDER: None, at this time Education provided: importance of repositioning, plan of care, and Off-loading pressure Discussed plan of care with: Patient and Nurse WOC nurse follow-up plan: Friday/Friday Notify WOC if wound(s) deteriorate. Nursing to notify the Provider(s) and re-consult the WO Nurse if new skin concern. DATA: Current support surface: Standard Standard Isoflex gel Containment of urine/stool: Indwelling catheter BMI: Body mass index is 27.08 kg/m??. Active diet order: Orders Placed This Encounter Regular Diet Adult Output: I/O last 3 completed shifts: In: 240 [P.O.:240] Out: 950 [Urine:950] Labs: Recent Labs Lab 03/07/24 0431 ALBUMIN 2.9* HGB 9.6* WBC 16.3* A1C 6.6* Pressure injury risk assessment: Sensory Perception: 2-->very limited Moisture: 3-->occasionally moist Activity: 1-->bedfast Mobility: 2-->very limited Nutrition: 3-->adequate Friction and Shear: 1-->problem Brandon Score: 12 Crescencio Roach RN CWOCN Contact Via [facility] Nurse ([place]) Dept. Office Number: [phone] * Robby Simms MD - 03/06/2024 11:00 AM CDT Images from the original note were not included. MICU ConsultNote Prerna Major 1945 Date of Admission:03/06/2024 Date of Service: 03/06/2024 Overnight events: Admitted overnight for septic shock. On Norepi this morning and minimal supplemental O2. PHYSICAL EXAM: Temp: 97.1 ??F (36.2 ??C) Temp Min: 97.1 ??F (36.2 ??C) Max: 102.2 ??F (39 ??C) Resp: 16 Resp Min: 8 Max: 32 SpO2: 94 % SpO2 Min: 88 % Max: 100 % No data recorded BP: 137/80 Systolic (24hrs), Av , Min:63 , Max:144 Diastolic (24hrs), Av, Min:33, Max:86 Resp: 16 BP 137/80 Pulse 101 Temp 97.1 ??F (36.2 ??C) (Temporal) Resp 16 Ht 1.524 m (5') Wt 61.2 kg (135 lb) SpO2 94% BMI 26.37 kg/m?? Physical Exam Constitutional: General: She is not in acute distress. Pulmonary: Effort: Pulmonary effort is normal. No respiratory distress. Breath sounds: Normal breath sounds. Genitourinary: Comments: Delacruz present Skin: Comments: Decubitus ulcers; wound VAC present Neurological: General: No focal deficit present. Intake/Output Summary (Last 24 hours) at 03/06/2024 1831 Last data filed at 03/06/2024 1800 Gross per 24 hour Intake 981.58 ml Output 225 ml Net 756.58 ml Vitals: 03/06/24 0430 Weight: 61.2 kg (135 lb) DIAGNOSTIC STUDIES ROUTINE ICU LABS (Last four results) CMP Recent Labs Lab 03/06/24 1606 03/06/24 1201 03/06/24 1005 03/06/24 0758 03/06/24 0052 NA -- -- 143 -- 142 POTASSIUM -- -- 3.5 -- 3.3* CHLORIDE -- -- 109* -- 103 CO2 -- -- 21* -- 23 ANIONGAP -- -- 13 -- 16* GLC 123* 156* 157* 120* 107* BUN -- -- 21.1 -- 21.7 CR -- -- 0.33* -- 0.31* GFRESTIMATED -- -- >90 -- >90 HOLLY -- -- 7.3* -- 8.4* PROTTOTAL -- -- 4.9* -- 5.2* ALBUMIN -- -- 2.7* -- 3.0* BILITOTAL -- -- 0.4 -- 0.3 ALKPHOS -- -- 329* -- 361* AST -- -- 129* -- 77* ALT -- -- 92* -- 46 CBC Recent Labs Lab 03/06/24 0052 WBC 26.2* RBC 3.86 HGB 10.5* HCT 34.4* MCV 89 MCH 27.2 MCHC 30.5* RDW 17.4* PLT 321 INRNo lab results found in last 7 days. Arterial Blood GasNo lab results found in last 7 days. Recent Results (from the past 24 hour(s)) XR Chest Port 1 View Narrative EXAM: XR CHEST PORT 1 VIEW LOCATION: [facility] DATE: 03/06/2024 INDICATION: Fever COMPARISON: 12/21/2013 Impression IMPRESSION: Mild cardiac enlargement. Normal pulmonary vascularity. Linear scarring right lung base. Marked vascular calcification. Postoperative changes thoracic and lumbar spine. XR Chest Port 1 View Narrative EXAM: XR CHEST PORT 1 VIEW LOCATION: [facility] DATE: 03/06/2024 INDICATION: central line confirmation of placement COMPARISON: 03/06/2024 1:28 AM Impression IMPRESSION: Interval placement of a right IJ central venous catheter which courses at least to the level of the superior cavoatrial junction but is partially obscured by overlapping metallic spinal hardware. Otherwise no interval change. ASSESSMENT and PLAN: CHANGES FOR TODAY: Neuro/psych: Continue home meds Pulmonary: Minimal O2 Cardiac: Septic Shock- wean Norepi. Lactate normalized. Stop continuous IVFs; use prn boluses Continue stress dose steroids in the setting of her chronic prednisone use as well as septic shock. Renal: No acute issues Infectious Disease: Concern for UTI leading to septic shock. Concern for anaphylaxis related to penicillin related medication and a recent ED visit. Was startedon meropenem overnight but did receive ceftriaxone in the ED which she tolerated. -No history of ESBL; stop meropenem and resume ceftriaxone -Blood cultures x 2 are growing E. coli without resistance on verigene; continue ceftriaxone GI/: -Nutrition: Advance diet as able -Has chronic Delacruz; it has been exchanged in the ED Prophylaxis: #. DVT: On chemical prophylaxis Lines/Tubes: Central line CODE: DNR/okay to intubate Dispo: ICU [facility] STAFF NOTE I am managing these acute and ongoing critical issues resulting in critical condition that impairs one or more vital organ systems, incur a high probability of imminent or life-threatening deterioration in the patient's condition and providing frequent personal assessment and manipulation of medications and life support equipment. 1. Septic Shock 2/2 E coli bacteremia; Urinary source ICU Interventions: parenteral medications necessitating continuous monitoring including vasoactive medications, medication for heart rhythm control, insulin infusion, and/or sedative/opiates and interpretation of lab values, cardiac output, cxr, pulse oximetry, blood gases, and/or information/data stored in computers The plan was formulated in conjunction with pharmacy, ICU nurses, and respiratory therapist. I haveevaluated all laboratory values and imaging studies for the past 24 hours. I have reviewed all the consults that have been ordered and are active for this patient. Critical Care Time: 40 min. I spent this time (excluding procedures) personally providing and directing critical care services at the bedside and on the critical care unit. Robby Simms MD Hand Mountertrashman, Pulmonary/CC Pager: [phone] documented in this encounter ED Notes * Julissa Merlos RN - 03/06/2024 5:23 AM CDT RN in room with MD Vicente when patient discussed code status with MD. Patient verbally agreed to DNR however is ok with intubation. * Michelle Yeung RN - 03/06/2024 2:54 AM CDT Pt incontinent of stool x2. Pt cleaned up. * Daniel Kerr RN - 03/06/2024 12:40 AM CDT Pt arrives from home via EMS. Pt had an appointment today at a wound clinic for her sacral wounds. Since visit pt has become febrile. 103.9 @ home and 102.2 now upon arrival. Pt was satting in the mid 80's on room air at home EMS started her at 10L. Pt now on Room air at 92%. Pt tachycardic at 130-140. BG 150. * Charlie Roe RN - 03/06/2024 12:34 AM CDT Bed: ED15 Expected date: Expected time: Means of arrival: Comments: [id number] * Chago Velazquez MD - 03/06/2024 12:34 AM CDT Emergency Department Note History of Present Illness Chief Complaint Fever HPI Prerna Major is a 78 year old paraplegic female with a history of transverse myelitis who presents to the ED for fever. Per the patient's daughter, tr, the patient had a sudden onset of a fever, within an hour. Her daughter also noted the patient was confused, not oriented, unable to follow directions, and speaking gibberish. She felt fine all day today. Patient denies shortness ofbreath or cough. Patient was seen today at the wound clinic for ulcers to her sacrum and right buttock. She has a chronic indwelling Delacruz catheter that was last changed 6 days ago. Independent Historian None Review of External Notes I reviewed Care Everywhere and updated [facility]. Past Medical History Medical History and Problem List Past Medical History: Diagnosis Date Arthritis Decubitus ulcer of right ischial area Gastric ulcer History of transverse myelitis MRSA (methicillin resistant Staphylococcus aureus) 12/02/2013 Blood Neurogenic bladder Paraplegia Paroxysmal atrial fibrillation RA (rheumatoid arthritis) Sacral decubitus ulcer Medications Doxycycline Prednisone Pseudoephedrine Trazodone Oxycodone Famotidine Surgical History EGD Physical Exam Patient Vitals for the past 24 hrs: BP Temp Temp src Pulse Resp SpO2 Weight 03/06/24 0539 100/54 -- -- 94 -- 95 % -- 03/06/24 0536 97/53 -- -- 92 -- 94 % -- 03/06/24529 101/53 -- -- 92 -- 94 % -- 03/06/24526 99/54 -- -- 93 -- 95 % -- 03/06/2418 92/49 -- -- 94 -- 95 % -- 03/06/24516 -- 98.6 ??F (37 ??C) Oral -- -- -- -- 03/06/24514/49 -- -- 93 -- 95 % -- 03/06/24511/49 -- -- 94 -- 94 % -- 03/06/24505 89/48 -- -- 98 -- 94 % -- 03/06/24502 93/54 -- -- 98 -- 94 % -- 03/06/24454 99/53 -- -- 101 -- 98 % -- 03/06/24453 99/53 -- -- 101 -- 98 % -- 03/06/24448 76/40 -- -- 101 -- 97 % -- 03/06/24443 81/38 -- -- 103 -- 98 % -- 03/06/24438 79/40 -- -- 101 -- 97 % -- 03/06/24437 -- -- -- 102 -- 97 % -- 03/06/24436 -- -- -- 103 -- 96 % -- 03/06/24435 -- -- -- 104 -- 96 % -- 03/06/24434 85/44 -- -- 104 -- 97 % -- 03/06/24432/43 -- -- 104 -- 96 % -- 03/06/24429 -- -- -- -- -- -- 61.2 kg (135 lb) 03/06/240 82/41 -- -- 106 -- 98 % -- 03/06/240 90/42 -- -- 107 -- 97 % -- 03/06/24220 91/52 -- -- 113 -- 98 % -- 03/06/240 115/53 -- -- 117 -- 100 % -- 03/06/24153 -- -- -- 115 -- 96 % -- 03/06/24 0145 86/64 -- -- 122 -- -- -- 03/06/24 0130 95/43 -- -- 125 -- 97 % -- 03/06/24 0112 -- -- -- 124 -- 88 % -- 03/06/24 0040 118/54 102.2 ??F (39 ??C) Oral 137 26 93 % -- Physical Exam Nursing note and vitals reviewed. Constitutional: Cooperative. HENT: Mouth/Throat: Dry mucous membranes. Cardiovascular: Tachycardic rate, regular rhythm and normal heart sounds. No murmur. Pulmonary/Chest: Effort normal and breath sounds normal. No respiratory distress. No wheezes. No rales. Abdominal: Soft. Normal appearance and bowel sounds are normal. No distension. There is no tenderness. There is no rigidity and no guarding. Delacruz catheter in place. Musculoskeletal: Significant atrophy to lower extremities, less degree to left lower extremity. Neurological: Alert. Oriented x 3. Skin: Skin is warm and dry. Large sacral bandage, clean margins. Would vac to right buttocks, cleanmargins. Psychiatric: Normal mood and affect. Diagnostics Lab Results Labs Ordered and Resulted from Time of ED Arrival to Time of ED Departure COMPREHENSIVE METABOLIC PANEL - Abnormal Result Value Sodium 142 Potassium 3.3 (*) Carbon Dioxide (CO2) 23 Anion Gap 16 (*) Urea Nitrogen 21.7 Creatinine 0.31 (*) GFR Estimate >90 Calcium 8.4 (*) Chloride 103 Glucose 107 (*) Alkaline Phosphatase 361 (*) AST 77 (*) ALT 46 Protein Total 5.2 (*) Albumin 3.0 (*) Bilirubin Total 0.3 LACTIC ACID WHOLE BLOOD WITH 1X REPEAT IN 2 HR WHEN >2 - Abnormal Lactic Acid, Initial 4.4 (*) CBC WITH PLATELETS AND DIFFERENTIAL - Abnormal WBC Count 26.2 (*) RBC Count 3.86 Hemoglobin 10.5 (*) Hematocrit 34.4 (*) MCV 89 MCH 27.2 MCHC 30.5 (*) RDW 17.4 (*) Platelet Count 321 % Neutrophils 91 % Lymphocytes 4 % Monocytes 3 % Eosinophils 0 % Basophils 0 % Immature Granulocytes 2 NRBCs per 100 WBC 0 Absolute Neutrophils 23.8 (*) Absolute Lymphocytes 1.1 Absolute Monocytes 0.7 Absolute Eosinophils 0.1 Absolute Basophils 0.1 Absolute Immature Granulocytes 0.5 (*) Absolute NRBCs 0.0 ROUTINE UA WITH MICROSCOPIC - Abnormal Color Urine Yellow Appearance Urine Cloudy (*) Glucose Urine Negative Bilirubin Urine Negative Ketones Urine Negative Specific [place] Urine 1.018 Blood Urine Small (*) pH Urine 5.5 Protein Albumin Urine 100 (*) Urobilinogen Urine Normal Nitrite Urine Positive (*) Leukocyte Esterase Urine Large (*) Bacteria Urine Few (*) WBC Clumps Urine Present (*) Mucus Urine Present (*) RBC Urine 17 (*) WBC Urine >182 (*) Squamous Epithelials Urine 2 (*) Hyaline Casts Urine 4 (*) PROCALCITONIN - Abnormal Procalcitonin 2.44 (*) LACTIC ACID WHOLE BLOOD - Abnormal Lactic Acid 2.1 (*) INFLUENZA A/B, RSV, & SARS-COV2 PCR - Normal Influenza A PCR Negative Influenza B PCR Negative RSV PCR Negative SARS CoV2 PCR Negative BLOOD CULTURE: Pending BLOOD CULTURE: pending URINE CULTURE: Pending Imaging XR Chest Port 1 View Final Result IMPRESSION: Mild cardiac enlargement. Normal pulmonary vascularity. Linear scarring right lung base. Marked vascular calcification. Postoperative changes thoracic and lumbar spine. EKG ECG taken at 0453, ECG read at 0454 Sinus tachycardia Right bundle branch block Rate 101 bpm. IA interval 144 ms. QRS duration 116 ms. QT/QTc 360/466 ms. P-R-T axes 70 60 33. Independent Interpretation I independently reviewed the chest x-ray post line placement. No pneumothorax. Line in good position ED Course Medications Administered Medications norepinephrine (LEVOPHED) 4 mg in NS 250 mL infusion PREMIX (0.05 mcg/kg/min ?? 61.2 kg IntravenousRate/Dose Change 03/06/24 0522) hydrocortisone sodium succinate PF (solu-CORTEF) injection 50 mg (has no administration in time range) sodium chloride 0.9% BOLUS 1,000 mL (0 mLs Intravenous Stopped 03/06/24 0200) acetaminophen (TYLENOL) tablet 1,000 mg (1,000 mg Oral $Given 03/06/24 0141) sodium chloride 0.9% BOLUS 1,000 mL (0 mLs Intravenous Stopped 03/06/24 0200) oxyCODONE (ROXICODONE) tablet 5-10 mg (5 mg Oral $Given 03/06/24 0215) cefTRIAXone (ROCEPHIN) 1 g vial to attach to NS 100 mL bag for ADULTS or NS 50 mL bag for PEDS (1 gIntravenous $New Bag 03/06/24455) sodium chloride 0.9% BOLUS 1,000 mL (0 mLs Intravenous Stopped 03/06/24452) morphine (PF) injection 2 mg (2 mg Intravenous $Given 03/06/24432) Procedures Central Line Placement Procedure: Central Venous Catheter Insertion Indication: Vasopressor administration and Vascular access Consent: Verbal from Family [place] Protocol: [place] protocol was followed and time out conducted just prior to starting procedure, confirming patient identity, site/side, procedure, patient position, and availability of correct equipment. Anesthesia/Sedation: Lidocaine - 1% Procedure Detail: Central line bundle elements were complete including preparatory hand leansing, donning full barrier precautions, use of a full body drape and chlorhxidine gluconate skin prep. The Right internal jugular vein was selected as the optimal location for patient???s condition. Ultrasound was utilized for guidance: Yes. A finder needle was used to enter the vein, through which a guidewire was inserted. The finder needle was then removed and the tract was dilated. A triple lumen central venous catheter was inserted over the guidewire without difficulty. The guidewire was removed and the catheter was sutured in place and covered with an appropriate dressing. A post-procedure chest radiograph was performed. Patient Status: The patient tolerated the procedure well: Yes. There were no complications. Social Determinants of Health adding to complexity of care Patient is a paraplegic due to history of transverse myelitis and reliant on daily cares ED Course ED Course as of 03/06/24 0506 Sat March 06, 2024 0050 I obtained history and examined the patient as noted above. 0417 I rechecked and updated the patient. The patient is on her third liter of fluid and is hypotensive. Central line to be placed. 0445 Central line placed as noted. [address] Vicente, of the hospitalist team, regarding the patient. They accepted the patient for admission to the hospital. Medical Decision Making / Diagnosis GABRIELA Major is a 78 year old female who presents critically ill with fever and hypotension. This appears to be septic shock given her elevated lactic acid and persistent low blood pressures despite adequate fluid resuscitation with 3 L. IV antibiotics were initiated and blood culture and urine culture sent. She does have wounds on her sacrum and ischium but these appear well- managed withwound vacs and dressings and I think less likely to be a source of infection. Patient is mentating well. Central line was placed for pressor therapy and she will be admitted to the ICU at this time in improved but guarded condition As patient was being transferred to the ICU received her urine culture results from [facility] showing resistant to cephalosporins and sensitivity to imipenem. I have communicated this to the [facility] hospitalist who will change antibiotics accordingly Critical Care time was 30 minutes for this patient excluding procedures. Disposition The patient was admitted to the hospital. ICD-10 Codes: ICD-10-CM 1. Fever in adult R50.9 2. Septic shock (H) A41.9 R65.21 3. Urinary tract infection without hematuria, site unspecified N39.0 4. Elevated lactic acid level R79.89 5. 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 L89.90 6. Paraplegia (H) G82.20 Scribe Disclosure: Aleksander Garcia, am serving as a scribe at 12:53 AM on 03/06/2024 to document services personally performed by Chago Velazquez MD based on my observations and the provider's statements to me. Chago Velazquez MD 03/06/24 0603 Chago Velazquez MD 03/06/24 0608 documented in this encounter Miscellaneous Notes * Plan of Care - Mary Lou Torres RN - 03/14/2024 4:26 PM CDT Goal Outcome Evaluation: Plan of Care Reviewed With: patient Overall Patient Progress: improvingOverall Patient Progress: improving Outcome Evaluation: VSS stable. Managing pain with PRN Oxycodone. Dressing changed on coccyx. Cleared to discharge home and resume homecare services. To Do: End of Shift Summary For vital signs and complete assessments, please see documentation flowsheets. Pertinent assessments: A&O x4. VSS. Oxycodone x2 for wound related pain. Wound vac in place. Repositioned. Delacruz intact. Major Shift Events: Central line removed. Coccyx dressing changed. Treatment Plan: IV rocephin, wound care, and symptom management. Prepare for discharge. Bedside Nurse: Mary Lou Torres RN Problem: Adult Inpatient Plan of Care Goal: Plan of Care Review Description: The Plan of Care Review/Shift note should be completed every shift. The Outcome Evaluation is a brief statement about your assessment that the patient is improving, declining, or no change. This information will be displayed automatically on your shift note. Outcome: Progressing Flowsheets (Taken 03/14/2024 1625) Outcome Evaluation: VSS stable. Managing pain with PRN Oxycodone. Dressing changed on coccyx. Cleared to discharge home and resume homecare services. Plan of Care Reviewed With: patient Overall Patient Progress: improving Goal: Patient-Specific Goal (Individualized) Description: You can add care plan individualizations to a care plan. Examples of Individualizationmight be: Parent requests to be called daily at 9am for status, I have a hard time hearing out of my right ear, or Do not touch me to wake me up as it startles me. Outcome: Progressing Goal: Absence of Hospital-Acquired Illness or Injury Outcome: Progressing Intervention: Identify and Manage Fall Risk Recent Flowsheet Documentation Taken 03/14/2024 0915 by Mary Lou Torres RN Safety Promotion/Fall Prevention: assistive device/personal items within reach clutter free environment maintained increased rounding and observation increase visualization of patient lighting adjusted nonskid shoes/slippers when out of bed mobility aid in reach patient and family education safety round/check completed Intervention: Prevent Skin Injury Recent Flowsheet Documentation Taken 03/14/2024 0915 by Mary Lou Torres RN Body Position: turned legs elevated Intervention: Prevent and Manage VTE (Venous Thromboembolism) Risk Recent Flowsheet Documentation Taken 03/14/2024 0915 by Mary Lou Torres RN VTE Prevention/Management: SCDs (sequential compression devices) off Intervention: Prevent Infection Recent Flowsheet Documentation Taken 03/14/2024 0915 by Mary Lou Torres RN Infection Prevention: single patient room provided Goal: Optimal Comfort and Wellbeing Outcome: Progressing Intervention: Monitor Pain and Promote Comfort Recent Flowsheet Documentation Taken 03/14/2024 1053 by Mary Lou Torres RN Pain Management Interventions: medication (see MAR) Taken 03/14/2024 0948 by Mary Lou Torres RN Pain Management Interventions: repositioned Goal: Readiness for Transition of Care Outcome: Progressing Problem: Infection Goal: Absence of Infection Signs and Symptoms Outcome: Progressing Intervention: Prevent or Manage Infection Recent Flowsheet Documentation Taken 03/14/2024 09 by Mary Lou Torres RN Isolation Precautions: contact precautions maintained Problem: Comorbidity Management Goal: Blood Pressure in Desired Range Outcome: Progressing Intervention: Maintain Blood Pressure Management Recent Flowsheet Documentation Taken 03/14/2024 09 by Mary Lou Torres RN Medication Review/Management: medications reviewed Problem: Gas Exchange Impaired Goal: Optimal Gas Exchange Outcome: Progressing Intervention: Optimize Oxygenation and Ventilation Recent Flowsheet Documentation Taken 03/14/2024914 by Mary Lou Torres RN Head of Bed (HOB) Positioning: HOB at 30 degrees Problem: Pain Acute Goal: Optimal Pain Control and Function Outcome: Progressing Intervention: Develop Pain Management Plan Recent Flowsheet Documentation Taken 03/14/2024 1053 by Mary Lou Torres RN Pain Management Interventions: medication (see MAR) Taken 03/14/2024 0948 by Mary Lou Torres RN Pain Management Interventions: repositioned Intervention: Prevent or Manage Pain Recent Flowsheet Documentation Taken 03/14/2024914 by Mary Lou Torres RN Medication Review/Management: medications reviewed Problem: Fall Injury Risk Goal: Absence of Fall and Fall-Related Injury Outcome: Progressing Intervention: Identify and Manage Contributors Recent Flowsheet Documentation Taken 03/14/2024914 by Mary Lou Torres RN Medication Review/Management: medications reviewed Intervention: Promote Injury-Free Environment Recent Flowsheet Documentation Taken 03/14/2024914 by Mary Lou Torres RN Safety Promotion/Fall Prevention: assistive device/personal items within reach clutter free environment maintained increased rounding and observation increase visualization of patient lighting adjusted nonskid shoes/slippers when out of bed mobility aid in reach patient and family education safety round/check completed Problem: Oral Intake Inadequate Goal: Improved Oral Intake Outcome: Progressing * Plan of Care - Angelina Alvarado RN - 03/14/2024 7:37 AM CDT To Do: End of Shift Summary For vital signs and complete assessments, please see documentation flowsheets. Pertinent assessments: Pt A/O. VSS. Oxycodone 2x and Tylenol given for generalized pain. Wound vac in place, no drainage. Repositioned. Delacruz with minimal output. Major Shift Events : None Treatment Plan: Rocephin, wound care and symptom management. Bedside Nurse: Angelina Alvarado RN Problem: Adult Inpatient Plan of Care Goal: Plan of Care Review Description: The Plan of Care Review/Shift note should be completed every shift. The Outcome Evaluation is a brief statement about your assessment that the patient is improving, declining, or no change. This information will be displayed automatically on your shift note. Outcome: Not Progressing Flowsheets (Taken 03/14/2024 0737) Outcome Evaluation: VSS stable. Plan of Care Reviewed With: patient Goal: Patient-Specific Goal (Individualized) Description: You can add care plan individualizations to a care plan. Examples of Individualizationmight be: Parent requests to be called daily at 9am for status, I have a hard time hearing out of my right ear, or Do not touch me to wake me up as it startles me. Outcome: Not Progressing Goal: Absence of Hospital-Acquired Illness or Injury Outcome: Not Progressing Intervention: Prevent Skin Injury Recent Flowsheet Documentation Taken 03/14/2024 0205 by Angelina Alvarado RN Body Position: weight shifting Goal: Optimal Comfort and Wellbeing Outcome: Not Progressing Intervention: Monitor Pain and Promote Comfort Recent Flowsheet Documentation Taken 03/14/2024 0654 by Angelina Alvarado RN Pain Management Interventions: medication (see MAR) Taken 03/14/2024 0548 by Angelina Alvarado, stretcher leveler operator Interventions: medication (see MAR) Taken 03/14/2024 0248 by Angelina Alvarado RN Pain Management Interventions: medication (see MAR) Goal: Readiness for Transition of Care Outcome: Not Progressing Problem: Infection Goal: Absence of Infection Signs and Symptoms Outcome: Not Progressing Problem: Comorbidity Management Goal: Blood Pressure in Desired Range Outcome: Not Progressing Problem: Gas Exchange Impaired Goal: Optimal Gas Exchange Outcome: Not Progressing Intervention: Optimize Oxygenation and Ventilation Recent Flowsheet Documentation Taken 03/14/2024 0205 by Angelina Alvarado RN Head of Bed (HOB) Positioning: HOB at 20-30 degrees Problem: Pain Acute Goal: Optimal Pain Control and Function Outcome: Not Progressing Intervention: Develop Pain Management Plan Recent Flowsheet Documentation Taken 03/14/2024 0654 by Angelina Alvarado RN Pain Management Interventions: medication (see MAR) Taken 03/14/2024 0548 by Angelina Alvarado RN Pain Management Interventions: medication (see MAR) Taken 03/14/2024 0248 by Angelina Alvarado RN Pain Management Interventions: medication (see MAR) Problem: Fall Injury Risk Goal: Absence of Fall and Fall-Related Injury Outcome: Not Progressing Problem: Oral Intake Inadequate Goal: Improved Oral Intake Outcome: Not Progressing Goal Outcome Evaluation: Plan of Care Reviewed With: patient Outcome Evaluation: VSS stable. * Plan of Care - Chucky Bryan RN - 03/13/2024 11:24 PM CDT Assessments: AxOx4, VSS. PRN oxycodone given for chronic pain. Wound vac in place for wound on RLE to R IT. Foamover sacral area changed. Had BM 2x, this shift. Prevalon boots requested but patient refused for overnight. 3-4+ edema on ankle/foot. Treatment Plan: Rocephin, wound cares, pain management Bedside Nurse: Chucky Bryan RN Problem: Adult Inpatient Plan of Care Goal: Plan of Care Review Description: The Plan of Care Review/Shift note should be completed every shift. The Outcome Evaluation is a brief statement about your assessment that the patient is improving, declining, or no change. This information will be displayed automatically on your shift note. Outcome: Progressing Flowsheets (Taken 03/13/2024 1083) Outcome Evaluation: afebrile, wound vac intact, delacruz draining well, no SOB, Plan of Care Reviewed With: patient Overall Patient Progress: improving Goal: Patient-Specific Goal (Individualized) Description: You can add care plan individualizations to a care plan. Examples of Individualizationmight be: Parent requests to be called daily at 9am for status, I have a hard time hearing out of my right ear, or Do not touch me to wake me up as it startles me. Outcome: Progressing Goal: Absence of Hospital-Acquired Illness or Injury Outcome: Progressing Intervention: Identify and Manage Fall Risk Recent Flowsheet Documentation Taken 03/13/20241699 by Chucky Bryan RN Safety Promotion/Fall Prevention: assistive device/personal items within reach safety round/check completed room door open room near nurse's station treat reversible contributory factors patient and family education increase visualization of patient Intervention: Prevent Skin Injury Recent Flowsheet Documentation Taken 03/13/20242139 by Chucky Bryan RN Body Position: turned side-lying 30 degrees left Taken 03/13/20241699 by Chucky Bryan RN Body Position: turned left Intervention: Prevent and Manage VTE (Venous Thromboembolism) Risk Recent Flowsheet Documentation Taken 03/13/20241699 by Chucky Bryan RN VTE Prevention/Management: SCDs (sequential compression devices) off Intervention: Prevent Infection Recent Flowsheet Documentation Taken 03/13/20241699 by Chucky Bryan RN Infection Prevention: single patient room provided Goal: Optimal Comfort and Wellbeing Outcome: Progressing Intervention: Monitor Pain and Promote Comfort Recent Flowsheet Documentation Taken 03/13/20242247 by Chucky Bryan RN Pain Management Interventions: medication (see MAR) Goal: Readiness for Transition of Care Outcome: Progressing Problem: Infection Goal: Absence of Infection Signs and Symptoms Outcome: Progressing Intervention: Prevent or Manage Infection Recent Flowsheet Documentation Taken 03/13/20241699 by Chucky Bryan RN Isolation Precautions: contact precautions maintained Problem: Comorbidity Management Goal: Blood Pressure in Desired Range Outcome: Progressing Intervention: Maintain Blood Pressure Management Recent Flowsheet Documentation Taken 03/13/20241699 by Chucky Bryan RN Medication Review/Management: medications reviewed Problem: Gas Exchange Impaired Goal: Optimal Gas Exchange Outcome: Progressing Intervention: Optimize Oxygenation and Ventilation Recent Flowsheet Documentation Taken 03/13/20242139 by Chucky Bryan RN Head of Bed (HOB) Positioning: HOB at 20-30 degrees Taken 03/13/20240 by Chucky Bryan RN Head of Bed (HOB) Positioning: HOB at 20-30 degrees Problem: Pain Acute Goal: Optimal Pain Control and Function Outcome: Progressing Intervention: Develop Pain Management Plan Recent Flowsheet Documentation Taken 03/13/2024 2248 by Chucky Bryan RN Pain Management Interventions: medication (see MAR) Intervention: Prevent or Manage Pain Recent Flowsheet Documentation Taken 03/13/2024 1700 by Chucky Bryan RN Medication Review/Management: medications reviewed Problem: Fall Injury Risk Goal: Absence of Fall and Fall-Related Injury Outcome: Progressing Intervention: Identify and Manage Contributors Recent Flowsheet Documentation Taken 03/13/2024 1700 by Chucky Bryan RN Medication Review/Management: medications reviewed Intervention: Promote Injury-Free Environment Recent Flowsheet Documentation Taken 03/13/2024 1700 by Chucky Bryan RN Safety Promotion/Fall Prevention: assistive device/personal items within reach safety round/check completed room door open room near nurse's station treat reversible contributory factors patient and family education increase visualization of patient Problem: Oral Intake Inadequate Goal: Improved Oral Intake Outcome: Progressing Goal Outcome Evaluation: Plan of Care Reviewed With: patient Overall Patient Progress: improving Outcome Evaluation: afebrile, wound vac intact, delacruz draining well, no SOB, * Plan of Care - Ezequiel Helton RN - 03/13/2024 4:10 PM CDT Goal Outcome Evaluation: Plan of Care Reviewed With: patient Outcome Evaluation: wound care done To Do: End of Shift Summary For vital signs and complete assessments, please see documentation flowsheets. Pertinent assessments: Pt AxO,VSS, except elevated BP, gave extra dose of metoprolol, 1x, [id number] given for generalized pain and wound care, Wound vac, change coccyx and left foot dressing change, right foot swollen +4, jose martin MG, gave one time dose of IV lasix, chronic delacruz, wipes done, CH wipes done, dressing change PICC line done, Repositioned. Had BM 1x, this shift. Major Shift Events: PICC line done Treatment Plan: Rocephin, wound care and symptom management. Problem: Adult Inpatient Plan of Care Goal: Plan of Care Review Description: The Plan of Care Review/Shift note should be completed every shift. The Outcome Evaluation is a brief statement about your assessment that the patient is improving, declining, or no change. This information will be displayed automatically on your shift note. Outcome: Progressing Flowsheets (Taken 03/13/2024 1610) Outcome Evaluation: wound care done Plan of Care Reviewed With: patient Goal: Patient-Specific Goal (Individualized) Description: You can add care plan individualizations to a care plan. Examples of Individualizationmight be: Parent requests to be called daily at 9am for status, I have a hard time hearing out of my right ear, or Do not touch me to wake me up as it startles me. Outcome: Progressing Goal: Absence of Hospital-Acquired Illness or Injury Outcome: Progressing Intervention: Identify and Manage Fall Risk Recent Flowsheet Documentation Taken 03/13/2024827 by Ezequiel Helton RN Safety Promotion/Fall Prevention: assistive device/personal items within reach Intervention: Prevent Skin Injury Recent Flowsheet Documentation Taken 03/13/2024827 by Ezequiel Helton RN Body Position: right left turned Intervention: Prevent and Manage VTE (Venous Thromboembolism) Risk Recent Flowsheet Documentation Taken 03/13/2024827 by Ezequiel Helton RN VTE Prevention/Management: SCDs (sequential compression devices) off Intervention: Prevent Infection Recent Flowsheet Documentation Taken 03/13/2024827 by Ezequiel Helton RN Infection Prevention: single patient room provided Goal: Optimal Comfort and Wellbeing Outcome: Progressing Intervention: Monitor Pain and Promote Comfort Recent Flowsheet Documentation Taken 03/13/2024827 by Ezequiel Helton RN Pain Management Interventions: medication (see MAR) Goal: Readiness for Transition of Care Outcome: Progressing Problem: Infection Goal: Absence of Infection Signs and Symptoms Outcome: Progressing Intervention: Prevent or Manage Infection Recent Flowsheet Documentation Taken 03/13/2024827 by Ezequiel Helton RN Isolation Precautions: contact precautions maintained Problem: Comorbidity Management Goal: Blood Pressure in Desired Range Outcome: Progressing Intervention: Maintain Blood Pressure Management Recent Flowsheet Documentation Taken 03/13/2024827 by Ezequiel Helton RN Medication Review/Management: medications reviewed Problem: Gas Exchange Impaired Goal: Optimal Gas Exchange Outcome: Progressing Intervention: Optimize Oxygenation and Ventilation Recent Flowsheet Documentation Taken 03/13/2024827 by Ezequiel Helton RN Head of Bed (HOB) Positioning: HOB at 30 degrees Problem: Pain Acute Goal: Optimal Pain Control and Function Outcome: Progressing Intervention: Develop Pain Management Plan Recent Flowsheet Documentation Taken 03/13/2024827 by Ezequiel Helton RN Pain Management Interventions: medication (see MAR) Intervention: Prevent or Manage Pain Recent Flowsheet Documentation Taken 03/13/2024827 by Ezequiel Helton RN Bowel Elimination Promotion: adequate fluid intake promoted Medication Review/Management: medications reviewed Intervention: Optimize Psychosocial Wellbeing Recent Flowsheet Documentation Taken 03/13/2024827 by Ezequiel Helton RN Supportive Measures: active listening utilized Problem: Fall Injury Risk Goal: Absence of Fall and Fall-Related Injury Outcome: Progressing Intervention: Identify and Manage Contributors Recent Flowsheet Documentation Taken 03/13/2024827 by Ezequiel Helton RN Self-Care Promotion: independence encouraged Medication Review/Management: medications reviewed Intervention: Promote Injury-Free Environment Recent Flowsheet Documentation Taken 03/13/2024827 by Ezequiel Helton RN Safety Promotion/Fall Prevention: assistive device/personal items within reach Problem: Oral Intake Inadequate Goal: Improved Oral Intake Outcome: Progressing * Plan of Care - Angelina Alvarado RN - 03/13/2024 6:08 AM CDT To Do: End of Shift Summary For vital signs and complete assessments, please see documentation flowsheets. Pertinent assessments: Pt A/o. SBP elevated. Oxycodone 2x given for generalized pain. Wound vac, nodrainage overnight. Repositioned. No BM this shift. Major Shift Events None Treatment Plan: Rocephin, wound care and symptom management. Bedside Nurse: Angelina Alvarado RN Problem: Adult Inpatient Plan of Care Goal: Plan of Care Review Description: The Plan of Care Review/Shift note should be completed every shift. The Outcome Evaluation is a brief statement about your assessment that the patient is improving, declining, or no change. This information will be displayed automatically on your shift note. Outcome: Not Progressing Flowsheets (Taken 03/13/2024 0608) Outcome Evaluation: SBP elevated Plan of Care Reviewed With: patient Overall Patient Progress: no change Goal: Patient-Specific Goal (Individualized) Description: You can add care plan individualizations to a care plan. Examples of Individualizationmight be: Parent requests to be called daily at 9am for status, I have a hard time hearing out of my right ear, or Do not touch me to wake me up as it startles me. Outcome: Not Progressing Goal: Absence of Hospital-Acquired Illness or Injury Outcome: Not Progressing Intervention: Identify and Manage Fall Risk Recent Flowsheet Documentation Taken 03/13/202418 by Angelina Alvarado RN Safety Promotion/Fall Prevention: activity supervised clutter free environment maintained increase visualization of patient nonskid shoes/slippers when out of bed safety round/check completed Intervention: Prevent Skin Injury Recent Flowsheet Documentation Taken 03/13/2024 0509 by Angelina Alvarado RN Body Position: turned left side-lying Taken 03/13/2024 000 by Angelina Alvarado RN Body Position: weight shifting Intervention: Prevent and Manage VTE (Venous Thromboembolism) Risk Recent Flowsheet Documentation Taken 03/13/20247 by Angelina Alvarado RN VTE Prevention/Management: SCDs (sequential compression devices) off Intervention: Prevent Infection Recent Flowsheet Documentation Taken 03/13/202418 by Angelina Alvarado RN Infection Prevention: single patient room provided Goal: Optimal Comfort and Wellbeing Outcome: Not Progressing Intervention: Monitor Pain and Promote Comfort Recent Flowsheet Documentation Taken 03/13/2024 000 by Angelina Alvarado RN Pain Management Interventions: medication (see MAR) Goal: Readiness for Transition of Care Outcome: Not Progressing Problem: Infection Goal: Absence of Infection Signs and Symptoms Outcome: Not Progressing Intervention: Prevent or Manage Infection Recent Flowsheet Documentation Taken 03/13/202418 by Angelina Alvarado RN Isolation Precautions: contact precautions maintained Problem: Comorbidity Management Goal: Blood Pressure in Desired Range Outcome: Not Progressing Intervention: Maintain Blood Pressure Management Recent Flowsheet Documentation Taken 03/13/202418 by Angelina Alvarado RN Medication Review/Management: medications reviewed Problem: Gas Exchange Impaired Goal: Optimal Gas Exchange Outcome: Not Progressing Intervention: Optimize Oxygenation and Ventilation Recent Flowsheet Documentation Taken 03/13/2024 0509 by Angelina Alvarado RN Head of Bed ([facility]) Positioning: HOB at 20-30 degrees Taken 03/13/2024 000 by Angelina Alvarado RN Head of Bed (HOB) Positioning: HOB at 20-30 degrees Problem: Pain Acute Goal: Optimal Pain Control and Function Outcome: Not Progressing Intervention: Develop Pain Management Plan Recent Flowsheet Documentation Taken 03/13/2024 000 by Angelina Alvarado RN Pain Management Interventions: medication (see MAR) Intervention: Prevent or Manage Pain Recent Flowsheet Documentation Taken 03/13/202418 by Angelina Alvarado RN Medication Review/Management: medications reviewed Problem: Fall Injury Risk Goal: Absence of Fall and Fall-Related Injury Outcome: Not Progressing Intervention: Identify and Manage Contributors Recent Flowsheet Documentation Taken 03/13/202418 by Angelina Alvarado RN Medication Review/Management: medications reviewed Intervention: Promote Injury-Free Environment Recent Flowsheet Documentation Taken 03/13/202418 by Angelina Alvarado RN Safety Promotion/Fall Prevention: activity supervised clutter free environment maintained increase visualization of patient nonskid shoes/slippers when out of bed safety round/check completed Problem: Oral Intake Inadequate Goal: Improved Oral Intake Outcome: Not Progressing Goal Outcome Evaluation: Plan of Care Reviewed With: patient Overall Patient Progress: no changeOverall Patient Progress: no change Outcome Evaluation: SBP elevated * Plan of Care - Jaylan Sullivan RN - 03/12/2024 11:30 PM CDT VSS, pt on room air. BP improved. Did not get OOB. Repostioned q2-3 hours. Pt received PRN oxycodone x 2 which was effective. Delacruz patent. Wound vac patent. Internal jugular patent. Discharge pending. Problem: Adult Inpatient Plan of Care Goal: Plan of Care Review Description: The Plan of Care Review/Shift note should be completed every shift. The Outcome Evaluation is a brief statement about your assessment that the patient is improving, declining, or no change. This information will be displayed automatically on your shift note. Outcome: Progressing Goal: Patient-Specific Goal (Individualized) Description: You can add care plan individualizations to a care plan. Examples of Individualizationmight be: Parent requests to be called daily at 9am for status, I have a hard time hearing out of my right ear, or Do not touch me to wake me up as it startles me. Outcome: Progressing Goal: Absence of Hospital-Acquired Illness or Injury Outcome: Progressing Intervention: Identify and Manage Fall Risk Recent Flowsheet Documentation Taken 03/12/2024 1640 by Jaylan Sullivan RN Safety Promotion/Fall Prevention: activity supervised assistive device/personal items within reach nonskid shoes/slippers when out of bed safety round/check completed supervised activity treat reversible contributory factors treat underlying cause mobility aid in reach clutter free environment maintained Intervention: Prevent and Manage VTE (Venous Thromboembolism) Risk Recent Flowsheet Documentation Taken 03/12/2024 1640 by Jaylan Sullivan RN VTE Prevention/Management: SCDs (sequential compression devices) off Intervention: Prevent Infection Recent Flowsheet Documentation Taken 03/12/2024 1640 by Jaylan Sullivan RN Infection Prevention: single patient room provided Goal: Optimal Comfort and Wellbeing Outcome: Progressing Goal: Readiness for Transition of Care Outcome: Progressing Problem: Infection Goal: Absence of Infection Signs and Symptoms Outcome: Progressing Intervention: Prevent or Manage Infection Recent Flowsheet Documentation Taken 03/12/2024 1640 by Jaylan Sullivan RN Isolation Precautions: contact precautions maintained Problem: Comorbidity Management Goal: Blood Pressure in Desired Range Outcome: Progressing Intervention: Maintain Blood Pressure Management Recent Flowsheet Documentation Taken 03/12/2024 1640 by Jaylan Sullivan RN Medication Review/Management: medications reviewed Problem: Gas Exchange Impaired Goal: Optimal Gas Exchange Outcome: Progressing Problem: Pain Acute Goal: Optimal Pain Control and Function Outcome: Progressing Intervention: Prevent or Manage Pain Recent Flowsheet Documentation Taken 03/12/2024 1640 by Jaylan Sullivan RN Medication Review/Management: medications reviewed Problem: Fall Injury Risk Goal: Absence of Fall and Fall-Related Injury Outcome: Progressing Intervention: Identify and Manage Contributors Recent Flowsheet Documentation Taken 03/12/2024 1640 by Jaylan Sullivan RN Medication Review/Management: medications reviewed Intervention: Promote Injury-Free Environment Recent Flowsheet Documentation Taken 03/12/2024 1640 by Jaylan Sullivan RN Safety Promotion/Fall Prevention: activity supervised assistive device/personal items within reach nonskid shoes/slippers when out of bed safety round/check completed supervised activity treat reversible contributory factors treat underlying cause mobility aid in reach clutter free environment maintained Problem: Oral Intake Inadequate Goal: Improved Oral Intake Outcome: Progressing Goal Outcome Evaluation: * Plan of Care - Ezequiel Helton RN - 03/12/2024 3:58 PM CDT Goal Outcome Evaluation: Plan of Care Reviewed With: patient Overall Patient Progress: improvingOverall Patient Progress: improving To Do: End of Shift Summary For vital signs and complete assessments, please see documentation flowsheets. Pertinent assessments: Pt A/O. VSS.except elevated BP, gave schedule BP meds, jose martin MG, gave extra dose of metoprolol 1x, BP 157/69, on room air, denies nausea, SOB, complained of pain,gave PRN Oxycodone given 1x for pain. Wound vac on R hip, minimal drainage. C/o constipation gave Miralax 1x, WOC changed all the wound cares this shift. Delacruz patent. Repositioned. Major Shift Events:EKG for palpitations Treatment Plan: wound care, Rocephin and symptom management. Problem: Adult Inpatient Plan of Care Goal: Plan of Care Review Description: The Plan of Care Review/Shift note should be completed every shift. The Outcome Evaluation is a brief statement about your assessment that the patient is improving, declining, or no change. This information will be displayed automatically on your shift note. 03/12/2024 1558 by Ezequiel Helton RN Outcome: Progressing 03/12/2024 1558 by Ezequiel Helton RN Outcome: Progressing Flowsheets (Taken 03/12/20241557) Plan of Care Reviewed With: patient Overall Patient Progress: improving Goal: Patient-Specific Goal (Individualized) Description: You can add care plan individualizations to a care plan. Examples of Individualizationmight be: Parent requests to be called daily at 9am for status, I have a hard time hearing out of my right ear, or Do not touch me to wake me up as it startles me. 03/12/2024 155 by Ezequiel Helton RN Outcome: Progressing 03/12/20241557 by Ezequiel Helton RN Outcome: Progressing Goal: Absence of Hospital-Acquired Illness or Injury 03/12/20241557 by Ezequiel Helton RN Outcome: Progressing 03/12/20241557 by Ezequiel Helton RN Outcome: Progressing Intervention: Identify and Manage Fall Risk Recent Flowsheet Documentation Taken 03/12/2024816 by Ezequiel Helton RN Safety Promotion/Fall Prevention: assistive device/personal items within reach safety round/check completed room organization consistent room near nurse's station Intervention: Prevent Skin Injury Recent Flowsheet Documentation Taken 03/12/2024816 by Ezequiel Helton RN Body Position: turned right left weight shifting Skin Protection: incontinence pads utilized Device Skin Pressure Protection: absorbent pad utilized/changed Intervention: Prevent and Manage VTE (Venous Thromboembolism) Risk Recent Flowsheet Documentation Taken 03/12/2024816 by Ezequiel Helton RN VTE Prevention/Management: SCDs (sequential compression devices) off Intervention: Prevent Infection Recent Flowsheet Documentation Taken 03/12/2024816 by Ezequiel Helton RN Infection Prevention: single patient room provided Goal: Optimal Comfort and Wellbeing 03/12/20241557 by Ezequiel Helton RN Outcome: Progressing 03/12/20241557 by Ezequiel Helton RN Outcome: Progressing Goal: Readiness for Transition of Care 03/12/20241557 by Ezequiel Helton RN Outcome: Progressing 03/12/20241557 by Ezequiel Helton RN Outcome: Progressing Problem: Infection Goal: Absence of Infection Signs and Symptoms 03/12/20241557 by Ezequiel Helton RN Outcome: Progressing 03/12/20241557 by Ezequiel Helton RN Outcome: Progressing Intervention: Prevent or Manage Infection Recent Flowsheet Documentation Taken 03/12/2024816 by Ezequiel Helton RN Isolation Precautions: contact precautions maintained Problem: Comorbidity Management Goal: Blood Pressure in Desired Range 03/12/20241557 by Ezequiel Helton RN Outcome: Progressing 03/12/20241557 by Ezequiel Helton RN Outcome: Progressing Intervention: Maintain Blood Pressure Management Recent Flowsheet Documentation Taken 03/12/2024816 by Ezequiel Helton RN Medication Review/Management: medications reviewed Problem: Gas Exchange Impaired Goal: Optimal Gas Exchange 03/12/20241557 by Ezequiel Helton RN Outcome: Progressing 03/12/20241557 by Ezequiel Helton RN Outcome: Progressing Intervention: Optimize Oxygenation and Ventilation Recent Flowsheet Documentation Taken 03/12/2024816 by Ezequiel Helton RN Head of Bed (HOB) Positioning: HOB at 30-45 degrees Problem: Pain Acute Goal: Optimal Pain Control and Function 03/12/20241557 by Ezequiel Helton RN Outcome: Progressing 03/12/20241557 by Ezequiel Helton RN Outcome: Progressing Intervention: Prevent or Manage Pain Recent Flowsheet Documentation Taken 03/12/2024816 by Ezequiel Helton RN Bowel Elimination Promotion: adequate fluid intake promoted Medication Review/Management: medications reviewed Problem: Fall Injury Risk Goal: Absence of Fall and Fall-Related Injury 03/12/20241557 by Ezequiel Helton RN Outcome: Progressing 03/12/20241557 by Ezequiel Helton RN Outcome: Progressing Intervention: Identify and Manage Contributors Recent Flowsheet Documentation Taken 03/12/2024816 by Ezequiel Helton RN Medication Review/Management: medications reviewed Intervention: Promote Injury-Free Environment Recent Flowsheet Documentation Taken 03/12/2024816 by Ezequiel Helton RN Safety Promotion/Fall Prevention: assistive device/personal items within reach safety round/check completed room organization consistent room near nurse's station Problem: Oral Intake Inadequate Goal: Improved Oral Intake 03/12/20241557 by Ezequiel Helton RN Outcome: Progressing 03/12/20241557 by Ezequiel Helton RN Outcome: Progressing * Plan of Care - Angelina Alvarado RN - 03/12/2024 7:04 AM CDT To Do: End of Shift Summary For vital signs and complete assessments, please see documentation flowsheets. Pertinent assessments: Pt A/O. VSS. Oxycodone given 2x for pain. Denies nausea and SOB. Wound vac on R hip, minimal drainage. C/o constipation, senna-docusate given. BLE elevated. Delacruz patent. Repositioned. Major Shift Events none Treatment Plan: wound care, Rocephin and symptom management. Bedside Nurse: Angelina Alvarado RN Problem: Adult Inpatient Plan of Care Goal: Plan of Care Review Description: The Plan of Care Review/Shift note should be completed every shift. The Outcome Evaluation is a brief statement about your assessment that the patient is improving, declining, or no change. This information will be displayed automatically on your shift note. Outcome: Progressing Flowsheets (Taken 03/12/2024 0703) Outcome Evaluation: Pain managed by Oxycodone. Plan of Care Reviewed With: patient Overall Patient Progress: improving Goal: Patient-Specific Goal (Individualized) Description: You can add care plan individualizations to a care plan. Examples of Individualizationmight be: Parent requests to be called daily at 9am for status, I have a hard time hearing out of my right ear, or Do not touch me to wake me up as it startles me. Outcome: Progressing Goal: Absence of Hospital-Acquired Illness or Injury Outcome: Progressing Intervention: Identify and Manage Fall Risk Recent Flowsheet Documentation Taken 03/12/202499 by Angelina Alvarado RN Safety Promotion/Fall Prevention: activity supervised clutter free environment maintained increase visualization of patient nonskid shoes/slippers when out of bed safety round/check completed Intervention: Prevent Skin Injury Recent Flowsheet Documentation Taken 03/12/2024 0223 by Angelina Alvarado RN Body Position: weight shifting Taken 03/12/202499 by Angelina Alvarado RN Body Position: weight shifting Intervention: Prevent and Manage VTE (Venous Thromboembolism) Risk Recent Flowsheet Documentation Taken 03/12/2024 010 by Angelina Alvarado RN VTE Prevention/Management: SCDs (sequential compression devices) off Intervention: Prevent Infection Recent Flowsheet Documentation Taken 03/12/202499 by Angelina Alvarado RN Infection Prevention: single patient room provided Goal: Optimal Comfort and Wellbeing Outcome: Progressing Intervention: Monitor Pain and Promote Comfort Recent Flowsheet Documentation Taken 03/12/2024222 by Angelina Alvarado RN Pain Management Interventions: medication (see MAR) Goal: Readiness for Transition of Care Outcome: Progressing Problem: Infection Goal: Absence of Infection Signs and Symptoms Outcome: Progressing Intervention: Prevent or Manage Infection Recent Flowsheet Documentation Taken 03/12/202499 by Angelina Alvarado RN Isolation Precautions: contact precautions maintained Problem: Comorbidity Management Goal: Blood Pressure in Desired Range Outcome: Progressing Intervention: Maintain Blood Pressure Management Recent Flowsheet Documentation Taken 03/12/202499 by Angelina Alvarado RN Medication Review/Management: medications reviewed Problem: Gas Exchange Impaired Goal: Optimal Gas Exchange Outcome: Progressing Intervention: Optimize Oxygenation and Ventilation Recent Flowsheet Documentation Taken 03/12/2024222 by Angelina Alvarado RN Head of Bed (HOB) Positioning: HOB at 20-30 degrees Taken 03/12/202499 by Angelina Alvarado RN Head of Bed (HOB) Positioning: HOB at 20-30 degrees Problem: Pain Acute Goal: Optimal Pain Control and Function Outcome: Progressing Intervention: Develop Pain Management Plan Recent Flowsheet Documentation Taken 03/12/2024222 by Angelina Alvarado RN Pain Management Interventions: medication (see MAR) Intervention: Prevent or Manage Pain Recent Flowsheet Documentation Taken 03/12/2024 06 by Angelina Alvarado RN Bowel Elimination Promotion: adequate fluid intake promoted Taken 03/12/202499 by Angelina Alvarado RN Medication Review/Management: medications reviewed Problem: Fall Injury Risk Goal: Absence of Fall and Fall-Related Injury Outcome: Progressing Intervention: Identify and Manage Contributors Recent Flowsheet Documentation Taken 03/12/202499 by Angelina Alvarado RN Medication Review/Management: medications reviewed Intervention: Promote Injury-Free Environment Recent Flowsheet Documentation Taken 03/12/202499 by Angelina Alvarado RN Safety Promotion/Fall Prevention: activity supervised clutter free environment maintained increase visualization of patient nonskid shoes/slippers when out of bed safety round/check completed Problem: Oral Intake Inadequate Goal: Improved Oral Intake Outcome: Progressing Problem: Gas Exchange Impaired Goal: Optimal Gas Exchange Outcome: Progressing Intervention: Optimize Oxygenation and Ventilation Recent Flowsheet Documentation Taken 03/12/2024 0223 by Angelina Alvarado RN Head of Bed (HOB) Positioning: HOB at 20-30 degrees Taken 03/12/2024 0100 by Angelina Alvarado RN Head of Bed (HOB) Positioning: HOB at 20-30 degrees Problem: Infection Goal: Absence of Infection Signs and Symptoms Outcome: Progressing Intervention: Prevent or Manage Infection Recent Flowsheet Documentation Taken 03/12/2024 0100 by Angelina Alvarado RN Isolation Precautions: contact precautions maintained Goal Outcome Evaluation: Plan of Care Reviewed With: patient Overall Patient Progress: improvingOverall Patient Progress: improving Outcome Evaluation: Pain managed by Oxycodone. * Plan of Care - Enrique Pollock RN - 03/11/2024 11:17 PM CDT End of Shift Summary For vital signs and complete assessments, please see documentation flowsheets. Pertinent assessments: A&Ox4, VSS on RA. 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 Wound Vac in place to R IT, wound packing done on coccyx, left foot, dressing clean dry and intact, repositioning refused x1 but completed every two hours other than that. Delacruz WDL. Major Shift Events: started on D5W at 75mL/hr. Refused gabapentin. Given prn pain medication x2 Treatment Plan: Wound care, pain management. Hopeful for discharge. Bedside Nurse: Enrique Pollock RN Goal Outcome Evaluation: Problem: Adult Inpatient Plan of Care Goal: Plan of Care Review Description: The Plan of Care Review/Shift note should be completed every shift. The Outcome Evaluation is a brief statement about your assessment that the patient is improving, declining, or no change. This information will be displayed automatically on your shift note. Outcome: Progressing Flowsheets (Taken 03/11/2024 2316) Outcome Evaluation: patient comfortable and care needs met, started on iv fluids, pain controlled with medications Plan of Care Reviewed With: patient Overall Patient Progress: improving Goal: Patient-Specific Goal (Individualized) Description: You can add care plan individualizations to a care plan. Examples of Individualizationmight be: Parent requests to be called daily at 9am for status, I have a hard time hearing out of my right ear, or Do not touch me to wake me up as it startles me. Outcome: Progressing Goal: Absence of Hospital-Acquired Illness or Injury Outcome: Progressing Intervention: Identify and Manage Fall Risk Recent Flowsheet Documentation Taken 03/11/2024 1600 by Enrique Pollock RN Safety Promotion/Fall Prevention: safety round/check completed room organization consistent room near nurse's station assistive device/personal items within reach Intervention: Prevent Skin Injury Recent Flowsheet Documentation Taken 03/11/20242114 by Enrique Pollock RN Body Position: left turned Taken 03/11/2024 191 by Enrique Pollock RN Body Position: right turned Taken 03/11/2024 171 by Enrique Pollock RN Body Position: (positioning refused) other (see comments) position maintained Taken 03/11/2024 1519 by Enrique Pollock RN Body Position: supine supine, legs elevated supine, head elevated Intervention: Prevent Infection Recent Flowsheet Documentation Taken 03/11/2024 1600 by Enrique Pollock RN Infection Prevention: single patient room provided Goal: Optimal Comfort and Wellbeing Outcome: Progressing Intervention: Monitor Pain and Promote Comfort Recent Flowsheet Documentation Taken 03/11/2024 1519 by Enrique Pollock RN Pain Management Interventions: medication (see MAR) Goal: Readiness for Transition of Care Outcome: Progressing Problem: Infection Goal: Absence of Infection Signs and Symptoms Outcome: Progressing Intervention: Prevent or Manage Infection Recent Flowsheet Documentation Taken 03/11/2024 1600 by Enrique Pollock RN Infection Management: aseptic technique maintained Isolation Precautions: contact precautions maintained Problem: Comorbidity Management Goal: Blood Pressure in Desired Range Outcome: Progressing Intervention: Maintain Blood Pressure Management Recent Flowsheet Documentation Taken 03/11/2024 1600 by Enrique Pollock RN Medication Review/Management: medications reviewed Problem: Gas Exchange Impaired Goal: Optimal Gas Exchange Outcome: Progressing Problem: Pain Acute Goal: Optimal Pain Control and Function Outcome: Progressing Intervention: Develop Pain Management Plan Recent Flowsheet Documentation Taken 03/11/2024 1519 by Enrique Pollock RN Pain Management Interventions: medication (see MAR) Intervention: Prevent or Manage Pain Recent Flowsheet Documentation Taken 03/11/2024 1600 by Enrique Pollock RN Medication Review/Management: medications reviewed Intervention: Optimize Psychosocial Wellbeing Recent Flowsheet Documentation Taken 03/11/2024 1600 by Enrique Pollock RN Supportive Measures: active listening utilized counseling provided decision-making supported goal-setting facilitated Problem: Fall Injury Risk Goal: Absence of Fall and Fall-Related Injury Outcome: Progressing Intervention: Identify and Manage Contributors Recent Flowsheet Documentation Taken 03/11/2024 1600 by Enrique Pollock RN Medication Review/Management: medications reviewed Intervention: Promote Injury-Free Environment Recent Flowsheet Documentation Taken 03/11/2024 1600 by Enrique Pollock RN Safety Promotion/Fall Prevention: safety round/check completed room organization consistent room near nurse's station assistive device/personal items within reach Problem: Oral Intake Inadequate Goal: Improved Oral Intake Outcome: Progressing Plan of Care Reviewed With: patient Overall Patient Progress: improvingOverall Patient Progress: improving Outcome Evaluation: patient comfortable and care needs met, started on iv fluids, pain controlled with medications * Plan of Care - Ezequiel Helton RN - 03/11/2024 3:00 PM CDT Goal Outcome Evaluation: Plan of Care Reviewed With: patient Overall Patient Progress: improvingOverall Patient Progress: improving Outcome Evaluation: wound care done Pertinent assessments: A&Ox4, VSS on RA. 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 Wound Vac in place to R IT, wound packing done on coccyx, left foot, dressing change, repositioning every 2hrs, gave sponge bath, draw lab from piccc line, sodium 147, MD aware, Major Shift Events: Wound care done, K protocol 4.3 after replacement Treatment Plan: Wound care, pain management. Problem: Adult Inpatient Plan of Care Goal: Plan of Care Review Description: The Plan of Care Review/Shift note should be completed every shift. The Outcome Evaluation is a brief statement about your assessment that the patient is improving, declining, or no change. This information will be displayed automatically on your shift note. Outcome: Progressing Flowsheets (Taken 03/11/2024 0380) Outcome Evaluation: wound care done Plan of Care Reviewed With: patient Overall Patient Progress: improving Goal: Patient-Specific Goal (Individualized) Description: You can add care plan individualizations to a care plan. Examples of Individualizationmight be: Parent requests to be called daily at 9am for status, I have a hard time hearing out of my right ear, or Do not touch me to wake me up as it startles me. Outcome: Progressing Goal: Absence of Hospital-Acquired Illness or Injury Outcome: Progressing Intervention: Identify and Manage Fall Risk Recent Flowsheet Documentation Taken 03/11/2024821 by Ezequiel Helton RN Safety Promotion/Fall Prevention: assistive device/personal items within reach room organization consistent safety round/check completed Intervention: Prevent Skin Injury Recent Flowsheet Documentation Taken 03/11/2024821 by Ezequiel Helton RN Body Position: right left turned weight shifting Skin Protection: incontinence pads utilized Device Skin Pressure Protection: absorbent pad utilized/changed Intervention: Prevent and Manage VTE (Venous Thromboembolism) Risk Recent Flowsheet Documentation Taken 03/11/2024821 by Ezequiel Helton RN VTE Prevention/Management: SCDs (sequential compression devices) off Intervention: Prevent Infection Recent Flowsheet Documentation Taken 03/11/2024821 by Ezequiel Helton RN Infection Prevention: single patient room provided rest/sleep promoted Goal: Optimal Comfort and Wellbeing Outcome: Progressing Goal: Readiness for Transition of Care Outcome: Progressing Problem: Infection Goal: Absence of Infection Signs and Symptoms Outcome: Progressing Intervention: Prevent or Manage Infection Recent Flowsheet Documentation Taken 03/11/2024821 by Ezequiel Helton RN Infection Management: aseptic technique maintained Isolation Precautions: contact precautions maintained Problem: Comorbidity Management Goal: Blood Pressure in Desired Range Outcome: Progressing Intervention: Maintain Blood Pressure Management Recent Flowsheet Documentation Taken 03/11/2024821 by Ezequiel Helton RN Medication Review/Management: medications reviewed Problem: Gas Exchange Impaired Goal: Optimal Gas Exchange Outcome: Progressing Intervention: Optimize Oxygenation and Ventilation Recent Flowsheet Documentation Taken 03/11/2024821 by Ezequiel Helton RN Head of Bed (HOB) Positioning: HOB at 30 degrees Problem: Pain Acute Goal: Optimal Pain Control and Function Outcome: Progressing Intervention: Prevent or Manage Pain Recent Flowsheet Documentation Taken 03/11/2024821 by Ezequiel Helton RN Sensory Stimulation Regulation: television on Bowel Elimination Promotion: adequate fluid intake promoted Medication Review/Management: medications reviewed Intervention: Optimize Psychosocial Wellbeing Recent Flowsheet Documentation Taken 03/11/2024821 by Ezequiel Helton RN Supportive Measures: active listening utilized Problem: Fall Injury Risk Goal: Absence of Fall and Fall-Related Injury Outcome: Progressing Intervention: Identify and Manage Contributors Recent Flowsheet Documentation Taken 03/11/2024821 by Ezequiel Helton RN Medication Review/Management: medications reviewed Intervention: Promote Injury-Free Environment Recent Flowsheet Documentation Taken 03/11/2024821 by Ezequiel Helton RN Safety Promotion/Fall Prevention: assistive device/personal items within reach room organization consistent safety round/check completed Problem: Oral Intake Inadequate Goal: Improved Oral Intake Outcome: Progressing * Plan of Care - Kyra Singh RN - 03/11/2024 5:41 AM CDT Goal Outcome Evaluation: Problem: Adult Inpatient Plan of Care Goal: Plan of Care Review Description: Patient is Alert and Oriented x4. on bedrest. Patient is on Contact precuations for MRSA. Pt is a Regular diet. complaining of 7/10 pain. Oxycodone given for pain. Delacruz draining well and intact. Patient is Saline locked. Outcome: Progressing Goal: Patient-Specific Goal (Individualized) Description: You can add care plan individualizations to a care plan. Examples of Individualizationmight be: Parent requests to be called daily at 9am for status, I have a hard time hearing out of my right ear, or Do not touch me to wake me up as it startles me. Outcome: Progressing Goal: Absence of Hospital-Acquired Illness or Injury Outcome: Progressing Intervention: Prevent and Manage VTE (Venous Thromboembolism) Risk Recent Flowsheet Documentation Taken 03/11/2024 014 by Kyra Singh RN VTE Prevention/Management: SCDs (sequential compression devices) off Intervention: Prevent Infection Recent Flowsheet Documentation Taken 03/11/2024139 by Kyra Singh RN Infection Prevention: rest/sleep promoted Goal: Optimal Comfort and Wellbeing Outcome: Progressing Goal: Readiness for Transition of Care Outcome: Progressing Problem: Infection Goal: Absence of Infection Signs and Symptoms Outcome: Progressing Problem: Comorbidity Management Goal: Blood Pressure in Desired Range Outcome: Progressing Intervention: Maintain Blood Pressure Management Recent Flowsheet Documentation Taken 03/11/2024 0541 by Kyra Singh RN Medication Review/Management: medications reviewed Problem: Gas Exchange Impaired Goal: Optimal Gas Exchange 03/11/2024 0540 by Kyra Singh RN Outcome: Progressing 03/11/2024 0539 by Kyra Singh RN Outcome: Progressing Problem: Pain Acute Goal: Optimal Pain Control and Function 03/11/2024 0540 by Kyra Singh RN Outcome: Progressing 03/11/2024 0539 by Kyra Singh RN Outcome: Progressing Intervention: Prevent or Manage Pain Flowsheets (Taken 03/11/2024 0541) Sleep/Rest Enhancement: awakenings minimized comfort measures consistent schedule promoted family presence promoted medication natural light exposure provided regular sleep/rest pattern promoted relaxation techniques promoted therapeutic touch utilized Bowel Elimination Promotion: privacy promoted adequate fluid intake promoted Medication Review/Management: medications reviewed Problem: Fall Injury Risk Goal: Absence of Fall and Fall-Related Injury 03/11/2024 0541 by Kyra Singh RN Outcome: Progressing 03/11/2024 0540 by Kyra Singh RN Outcome: Progressing 03/11/2024 0539 by Kyra Singh RN Outcome: Progressing Intervention: Identify and Manage Contributors Recent Flowsheet Documentation Taken 03/11/2024 05 by Kyra Singh RN Medication Review/Management: medications reviewed Problem: Oral Intake Inadequate Goal: Improved Oral Intake 03/11/2024 0541 by Kyra Singh RN Outcome: Progressing 03/11/2024 0540 by Kyra Singh RN Outcome: Progressing 03/11/2024 0539 by Kyra Singh RN Outcome: Progressing * Plan of Care - Charlotte Neri RN - 03/10/2024 10:54 PM CDT Pertinent assessments: A&O, VSS on RA. Paraplegic able to role and reposition in bed well w/ ax1. Wound Vac in place to R IT, dressing on cocyx. Refused frequently offered repositioning. Major Shift Events: Oxycodone given for wound and bone pain. Treatment Plan: Wound care, pain management. Bedside Nurse: Charlotte Neri RN Problem: Adult Inpatient Plan of Care Goal: Plan of Care Review Description: The Plan of Care Review/Shift note should be completed every shift. The Outcome Evaluation is a brief statement about your assessment that the patient is improving, declining, or no change. This information will be displayed automatically on your shift note. 03/10/20242253 by Charlotte Neri RN Outcome: Progressing 03/10/20242252 by Charlotte Neri RN Outcome: Progressing Flowsheets (Taken 03/10/20242252) Outcome Evaluation: Wound care, pain management. Plan of Care Reviewed With: patient Overall Patient Progress: improving Goal: Patient-Specific Goal (Individualized) Description: You can add care plan individualizations to a care plan. Examples of Individualizationmight be: Parent requests to be called daily at 9am for status, I have a hard time hearing out of my right ear, or Do not touch me to wake me up as it startles me. 03/10/20242253 by Charlotte Neri RN Outcome: Progressing 03/10/20242252 by Charlotte Neri RN Outcome: Progressing Goal: Absence of Hospital-Acquired Illness or Injury 03/10/20242253 by Charlotte Neri RN Outcome: Progressing 03/10/20242252 by Charlotte Neri RN Outcome: Progressing Intervention: Identify and Manage Fall Risk Recent Flowsheet Documentation Taken 03/10/2024 1631 by Charlotte Neri RN Safety Promotion/Fall Prevention: increased rounding and observation increase visualization of patient room near nurse's station safety round/check completed Intervention: Prevent Skin Injury Recent Flowsheet Documentation Taken 03/10/2024 1830 by Charlotte Neri RN Body Position: refuses positioning Taken 03/10/2024 1631 by Charlotte Neri RN Body Position: turned left heels elevated Intervention: Prevent and Manage VTE (Venous Thromboembolism) Risk Recent Flowsheet Documentation Taken 03/10/2024 1631 by Charlotte Neri RN VTE Prevention/Management: SCDs (sequential compression devices) off Intervention: Prevent Infection Recent Flowsheet Documentation Taken 03/10/2024 1631 by Charlotte Neri RN Infection Prevention: rest/sleep promoted Goal: Optimal Comfort and Wellbeing 03/10/20242253 by Charlotte Neri RN Outcome: Progressing 03/10/2024 2253 by Charlotte Neri RN Outcome: Progressing Goal: Readiness for Transition of Care 03/10/20242253 by Charlotte Neri RN Outcome: Progressing 03/10/2024 225 by Charlotte Neri RN Outcome: Progressing Problem: Infection Goal: Absence of Infection Signs and Symptoms 03/10/20242253 by Charlotte Neri RN Outcome: Progressing 03/10/20242252 by Charlotte Neri RN Outcome: Progressing Problem: Comorbidity Management Goal: Blood Pressure in Desired Range 03/10/20242253 by Charlotte Neri RN Outcome: Progressing 03/10/20242252 by Charlotte Neri RN Outcome: Progressing Intervention: Maintain Blood Pressure Management Recent Flowsheet Documentation Taken 03/10/2024 1631 by Charlotte Neri RN Medication Review/Management: medications reviewed Problem: Gas Exchange Impaired Goal: Optimal Gas Exchange 03/10/20242253 by Charlotte Neri RN Outcome: Progressing 03/10/2024 225 by Charlotte Neri RN Outcome: Progressing Intervention: Optimize Oxygenation and Ventilation Recent Flowsheet Documentation Taken 03/10/2024 1631 by Charlotte Neri RN Head of Bed (HOB) Positioning: HOB at 20 degrees Problem: Pain Acute Goal: Optimal Pain Control and Function 03/10/20242253 by Charlotte Neri RN Outcome: Progressing 03/10/2024 225 by Charlotte Neri RN Outcome: Progressing Intervention: Prevent or Manage Pain Recent Flowsheet Documentation Taken 03/10/2024 1631 by Charlotte Neri RN Medication Review/Management: medications reviewed Problem: Fall Injury Risk Goal: Absence of Fall and Fall-Related Injury 03/10/20242253 by Charlotte Neri RN Outcome: Progressing 03/10/2024 2253 by Charlotte Neri RN Outcome: Progressing Intervention: Identify and Manage Contributors Recent Flowsheet Documentation Taken 03/10/2024 1631 by Charlotte Neri RN Medication Review/Management: medications reviewed Intervention: Promote Injury-Free Environment Recent Flowsheet Documentation Taken 03/10/2024 1631 by Charlotte Neri RN Safety Promotion/Fall Prevention: increased rounding and observation increase visualization of patient room near nurse's station safety round/check completed Problem: Oral Intake Inadequate Goal: Improved Oral Intake 03/10/20242253 by Charlotte Neri RN Outcome: Progressing 03/10/20243 by Charlotte Neri RN Outcome: Progressing Goal Outcome Evaluation: Plan of Care Reviewed With: patient Overall Patient Progress: improvingOverall Patient Progress: improving Outcome Evaluation: Wound care, pain management. * Plan of Care - Hattie Crocker RN - 03/10/2024 3:32 PM CDT To Do: End of Shift Summary For vital signs and complete assessments, please see documentation flowsheets. Pertinent assessments: Pt A&Ox4, VSS on RA except for elevated BP. PRN hydralazine given. Ratespain at 8, oral tylenol and oxy given. Denies nausea\SOB. Assist of 2 with lift. CHG bath given today. Wound care done. Wound vac in place on right hip. Repo offered, pt declined. Regular diet, tolerating well. Delacruz in place with adequate output. Internal jugular line SL. Ropcephin given. Bed alarm on. Contact precautions maintained. Major Shift Events: None. Treatment Plan: IV Rocephin, WOC consult, prn hydralazine SBP > 180, pain management. Bedside Nurse: Hattie Crocker RN Problem: Adult Inpatient Plan of Care Goal: Plan of Care Review Description: The Plan of Care Review/Shift note should be completed every shift. The Outcome Evaluation is a brief statement about your assessment that the patient is improving, declining, or no change. This information will be displayed automatically on your shift note. Outcome: Progressing Flowsheets (Taken 03/10/2024 1531) Outcome Evaluation: Pain controlled with oral oxy and tylenol. Wound care completed today. Chronic delacruz in palce. Hopeful discharge tomorrow. Plan of Care Reviewed With: patient Overall Patient Progress: improving Goal: Patient-Specific Goal (Individualized) Description: You can add care plan individualizations to a care plan. Examples of Individualizationmight be: Parent requests to be called daily at 9am for status, I have a hard time hearing out of my right ear, or Do not touch me to wake me up as it startles me. Outcome: Progressing Goal: Absence of Hospital-Acquired Illness or Injury Outcome: Progressing Intervention: Identify and Manage Fall Risk Recent Flowsheet Documentation Taken 03/10/2024942 by Hattie Crocker RN Safety Promotion/Fall Prevention: safety round/check completed Intervention: Prevent and Manage VTE (Venous Thromboembolism) Risk Recent Flowsheet Documentation Taken 03/10/2024942 by Hattie Crocker RN VTE Prevention/Management: SCDs (sequential compression devices) off Intervention: Prevent Infection Recent Flowsheet Documentation Taken 03/10/2024942 by Hattie Crocker RN Infection Prevention: single patient room provided Goal: Optimal Comfort and Wellbeing Outcome: Progressing Intervention: Monitor Pain and Promote Comfort Recent Flowsheet Documentation Taken 03/10/2024933 by Hattie Crocker RN Pain Management Interventions: medication (see MAR) Intervention: Provide Person-Centered Care Recent Flowsheet Documentation Taken 03/10/2024942 by Hattie Crocker RN Trust Relationship/Rapport: care explained Goal: Readiness for Transition of Care Outcome: Progressing Problem: Infection Goal: Absence of Infection Signs and Symptoms Outcome: Progressing Intervention: Prevent or Manage Infection Recent Flowsheet Documentation Taken 03/10/2024942 by Hattie Crocker RN Isolation Precautions: contact precautions maintained Problem: Comorbidity Management Goal: Blood Pressure in Desired Range Outcome: Progressing Intervention: Maintain Blood Pressure Management Recent Flowsheet Documentation Taken 03/10/2024942 by Hattie Crocker RN Medication Review/Management: medications reviewed Problem: Gas Exchange Impaired Goal: Optimal Gas Exchange Outcome: Progressing Problem: Pain Acute Goal: Optimal Pain Control and Function Outcome: Progressing Intervention: Develop Pain Management Plan Recent Flowsheet Documentation Taken 03/10/2024933 by Hattie Crocker RN Pain Management Interventions: medication (see MAR) Intervention: Prevent or Manage Pain Recent Flowsheet Documentation Taken 03/10/2024 0943 by Hattie Crocker RN Medication Review/Management: medications reviewed Problem: Fall Injury Risk Goal: Absence of Fall and Fall-Related Injury Outcome: Progressing Intervention: Identify and Manage Contributors Recent Flowsheet Documentation Taken 03/10/2024 0943 by Hattie Crocker RN Medication Review/Management: medications reviewed Intervention: Promote Injury-Free Environment Recent Flowsheet Documentation Taken 03/10/2024 0943 by Hattie Crocker RN Safety Promotion/Fall Prevention: safety round/check completed Problem: Oral Intake Inadequate Goal: Improved Oral Intake Outcome: Progressing Goal Outcome Evaluation: Plan of Care Reviewed With: patient Overall Patient Progress: improvingOverall Patient Progress: improving Outcome Evaluation: Pain controlled with oral oxy and tylenol. Wound care completed today. Chronic delacruz in palce. Hopeful discharge tomorrow. * Plan of Care - Cici James RN - 03/10/2024 6:50 AM CDT Goal Outcome Evaluation: Plan of Care Reviewed With: patient Overall Patient Progress: no changeOverall Patient Progress: no change Outcome Evaluation: Pain manged with oral pain medications, in which she takes at home. Repositioned upon pt request. Dressing chenged by WOC. Chronic delacruz in place. Plan to discharge home today. Problem: Adult Inpatient Plan of Care Goal: Plan of Care Review Description: The Plan of Care Review/Shift note should be completed every shift. The Outcome Evaluation is a brief statement about your assessment that the patient is improving, declining, or no change. This information will be displayed automatically on your shift note. Outcome: Progressing Flowsheets (Taken 03/10/2024 0648) Outcome Evaluation: Pain manged with oral pain medications, in which she takes at home. Repositioned upon pt request. Dressing chenged by WOC. Chronic delacruz in place. Plan to discharge home today. Plan of Care Reviewed With: patient Overall Patient Progress: no change Goal: Patient-Specific Goal (Individualized) Description: You can add care plan individualizations to a care plan. Examples of Individualizationmight be: Parent requests to be called daily at 9am for status, I have a hard time hearing out of my right ear, or Do not touch me to wake me up as it startles me. Outcome: Progressing Goal: Absence of Hospital-Acquired Illness or Injury Outcome: Progressing Intervention: Identify and Manage Fall Risk Recent Flowsheet Documentation Taken 03/09/20242049 by Cici James RN Safety Promotion/Fall Prevention: safety round/check completed Intervention: Prevent and Manage VTE (Venous Thromboembolism) Risk Recent Flowsheet Documentation Taken 03/09/20242049 by Cici James RN VTE Prevention/Management: SCDs (sequential compression devices) off Intervention: Prevent Infection Recent Flowsheet Documentation Taken 03/09/20242049 by Cici James RN Infection Prevention: single patient room provided Goal: Optimal Comfort and Wellbeing Outcome: Progressing Intervention: Monitor Pain and Promote Comfort Recent Flowsheet Documentation Taken 03/09/20242156 by Cici James RNstretcher leveler operator Interventions: medication (see MAR) Intervention: Provide Person-Centered Care Recent Flowsheet Documentation Taken 03/09/20242049 by Cici James RN Trust Relationship/Rapport: care explained Goal: Readiness for Transition of Care Outcome: Progressing * Plan of Care - Ethel Moore RN - 03/09/2024 7:53 PM CDT Pertinent assessments:BP 194/87 this morning, down to 153/73 with prn hydralazine. Prn oxycodone x1, prn tylenol x1 w/ improvement. Turn and repos. Delacruz patent, good urine op. Wound vac in place on R hip. Wet to dry vashe gauze/Mepilex to sacrum, and mepilex to both feet intact. All dressings changed by WOC this shift. . Major Shift Events NA Treatment Plan: IV Rocephin, WOC consult, prn hydralazine SBP > 180 Bedside Nurse: Ethel Moore RN Goal Outcome Evaluation: Plan of Care Reviewed With: patient Overall Patient Progress: improvingOverall Patient Progress: improving Outcome Evaluation: Dressings changed by WOC, chronic delacruz Problem: Adult Inpatient Plan of Care Goal: Plan of Care Review Description: The Plan of Care Review/Shift note should be completed every shift. The Outcome Evaluation is a brief statement about your assessment that the patient is improving, declining, or no change. This information will be displayed automatically on your shift note. Outcome: Progressing Flowsheets (Taken 03/09/20241952) Outcome Evaluation: Dressings changed by susana DENNIS Plan of Care Reviewed With: patient Overall Patient Progress: improving Goal: Patient-Specific Goal (Individualized) Description: You can add care plan individualizations to a care plan. Examples of Individualizationmight be: Parent requests to be called daily at 9am for status, I have a hard time hearing out of my right ear, or Do not touch me to wake me up as it startles me. Outcome: Progressing Goal: Absence of Hospital-Acquired Illness or Injury Outcome: Progressing Intervention: Identify and Manage Fall Risk Recent Flowsheet Documentation Taken 03/09/2024814 by Ethel Moore RN Safety Promotion/Fall Prevention: safety round/check completed Intervention: Prevent Skin Injury Recent Flowsheet Documentation Taken 03/09/2024814 by Ethel Moore RN Body Position: turned right Intervention: Prevent and Manage VTE (Venous Thromboembolism) Risk Recent Flowsheet Documentation Taken 03/09/2024814 by Ethel Moore RN VTE Prevention/Management: SCDs (sequential compression devices) off Intervention: Prevent Infection Recent Flowsheet Documentation Taken 03/09/2024814 by Ethel Moore RN Infection Prevention: single patient room provided Goal: Optimal Comfort and Wellbeing Outcome: Progressing Intervention: Monitor Pain and Promote Comfort Recent Flowsheet Documentation Taken 03/09/2024 0914 by Ethel Moore RN Pain Management Interventions: medication (see MAR) Taken 03/09/2024814 by Ethel Moore RN Pain Management Interventions: medication (see MAR) Intervention: Provide Person-Centered Care Recent Flowsheet Documentation Taken 03/09/2024814 by Ethel Moore RN Trust Relationship/Rapport: care explained Goal: Readiness for Transition of Care Outcome: Progressing Problem: Infection Goal: Absence of Infection Signs and Symptoms Outcome: Progressing Intervention: Prevent or Manage Infection Recent Flowsheet Documentation Taken 03/09/2024814 by Ethel Moore RN Isolation Precautions: contact precautions maintained Problem: Comorbidity Management Goal: Blood Pressure in Desired Range Outcome: Progressing Intervention: Maintain Blood Pressure Management Recent Flowsheet Documentation Taken 03/09/2024814 by Ethel Moore RN Medication Review/Management: medications reviewed Problem: Gas Exchange Impaired Goal: Optimal Gas Exchange Outcome: Progressing Problem: Pain Acute Goal: Optimal Pain Control and Function Outcome: Progressing Intervention: Develop Pain Management Plan Recent Flowsheet Documentation Taken 03/09/2024913 by Ethel Moore RN Pain Management Interventions: medication (see MAR) Taken 03/09/2024814 by Ethel Moore RN Pain Management Interventions: medication (see MAR) Intervention: Prevent or Manage Pain Recent Flowsheet Documentation Taken 03/09/2024814 by Ethel Moore RN Medication Review/Management: medications reviewed Problem: Fall Injury Risk Goal: Absence of Fall and Fall-Related Injury Outcome: Progressing Intervention: Identify and Manage Contributors Recent Flowsheet Documentation Taken 03/09/2024814 by Ethel Moore RN Medication Review/Management: medications reviewed Intervention: Promote Injury-Free Environment Recent Flowsheet Documentation Taken 03/09/2024814 by Ethel Moore RN Safety Promotion/Fall Prevention: safety round/check completed Problem: Oral Intake Inadequate Goal: Improved Oral Intake Outcome: Progressing * Plan of Care - Nicole Lowery RN - 03/09/2024 7:51 AM CDT End of Shift Summary For vital signs and complete assessments, please see documentation flowsheets. Pertinent assessments:BP elevated, otherwise VSS. Prn oxycodone x1, prn tylenol x1 w/ improvement. Turn and repos. Delacruz patent, good urine op. Wound Vac in place. Mepilex to sacrum, and bilateral feet intact. Blanchable redness to heels, elevated w/ pillows. Major Shift Events NA Treatment Plan: IV Rocephin, WOC consult, prn hydralazine SBP > 180 Goal Outcome Evaluation: Plan of Care Reviewed With: patient Overall Patient Progress: improvingOverall Patient Progress: improving Outcome Evaluation: good urine output, clear Problem: Adult Inpatient Plan of Care Goal: Plan of Care Review Description: The Plan of Care Review/Shift note should be completed every shift. The Outcome Evaluation is a brief statement about your assessment that the patient is improving, declining, or no change. This information will be displayed automatically on your shift note. Outcome: Progressing Flowsheets (Taken 03/09/2024 0749) Outcome Evaluation: good urine output, clear Plan of Care Reviewed With: patient Overall Patient Progress: improving Goal: Patient-Specific Goal (Individualized) Description: You can add care plan individualizations to a care plan. Examples of Individualizationmight be: Parent requests to be called daily at 9am for status, I have a hard time hearing out of my right ear, or Do not touch me to wake me up as it startles me. Outcome: Progressing Goal: Absence of Hospital-Acquired Illness or Injury Outcome: Progressing Intervention: Prevent Skin Injury Recent Flowsheet Documentation Taken 03/09/2024602 by Nicole Lowery RN Body Position: turned Goal: Optimal Comfort and Wellbeing Outcome: Progressing Intervention: Monitor Pain and Promote Comfort Recent Flowsheet Documentation Taken 03/09/2024602 by Nicole Lwoery RNstretcher leveler operator Interventions: medication (see MAR) repositioned Taken 03/09/2024 0020 by Nicole Lowery RNstretcher leveler operator Interventions: repositioned Goal: Readiness for Transition of Care Outcome: Progressing Problem: Infection Goal: Absence of Infection Signs and Symptoms Outcome: Progressing Problem: Comorbidity Management Goal: Blood Pressure in Desired Range Outcome: Progressing Problem: Gas Exchange Impaired Goal: Optimal Gas Exchange Outcome: Progressing Intervention: Optimize Oxygenation and Ventilation Recent Flowsheet Documentation Taken 03/09/2024602 by Nicole Lowery RN Head of Bed (HOB) Positioning: HOB at 20-30 degrees Problem: Pain Acute Goal: Optimal Pain Control and Function Outcome: Progressing Intervention: Develop Pain Management Plan Recent Flowsheet Documentation Taken 03/09/2024602 by Nicole Lowery RNstretcher leveler operator Interventions: medication (see MAR) repositioned Taken 03/09/2024 0020 by Nicole Lowery RNstretcher leveler operator Interventions: repositioned Problem: Fall Injury Risk Goal: Absence of Fall and Fall-Related Injury Outcome: Progressing Problem: Oral Intake Inadequate Goal: Improved Oral Intake Outcome: Progressing * Provider Notification - Nicole Lowery RN - 03/08/2024 11:57 PM CDT Notified MD of elevated BP of 187/89. No prns available. * Plan of Care - Hallie Oconnor RN - 03/08/2024 8:45 PM CDT Goal Outcome Evaluation: Plan of Care Reviewed With: patient Patient A&Ox4, VSS except BP elevated at 175/77 MD was notified per orders but no new orders. Oxycodone given for pain management, tolerated a regular diet. Delacruz patent with good output, was repositioned in bed. Mepilex dressings on bilateral heels and top of foot changed. Wound vac on R hip and dressing on coccyx CDI C-pap on at bedtime, will continue to follow plan of care. Problem: Adult Inpatient Plan of Care Goal: Plan of Care Review Description: The Plan of Care Review/Shift note should be completed every shift. The Outcome Evaluation is a brief statement about your assessment that the patient is improving, declining, or no change. This information will be displayed automatically on your shift note. Outcome: Progressing Flowsheets (Taken 03/08/20242043) Plan of Care Reviewed With: patient Goal: Patient-Specific Goal (Individualized) Description: You can add care plan individualizations to a care plan. Examples of Individualizationmight be: Parent requests to be called daily at 9am for status, I have a hard time hearing out of my right ear, or Do not touch me to wake me up as it startles me. Outcome: Progressing Goal: Absence of Hospital-Acquired Illness or Injury Outcome: Progressing Intervention: Identify and Manage Fall Risk Recent Flowsheet Documentation Taken 03/08/20241614 by Hallie Oconnor RN Safety Promotion/Fall Prevention: activity supervised assistive device/personal items within reach clutter free environment maintained Intervention: Prevent Skin Injury Recent Flowsheet Documentation Taken 03/08/20241614 by Hallie Oconnor RN Body Position: turned Intervention: Prevent and Manage VTE (Venous Thromboembolism) Risk Recent Flowsheet Documentation Taken 03/08/2024 161 by Hallie Oconnor RN VTE Prevention/Management: SCDs (sequential compression devices) off Goal: Optimal Comfort and Wellbeing Outcome: Progressing Goal: Readiness for Transition of Care Outcome: Progressing Problem: Infection Goal: Absence of Infection Signs and Symptoms Outcome: Progressing Intervention: Prevent or Manage Infection Recent Flowsheet Documentation Taken 03/08/2024 161 by Hallie Oconnor RN Isolation Precautions: contact precautions maintained Problem: Comorbidity Management Goal: Blood Pressure in Desired Range Outcome: Progressing Intervention: Maintain Blood Pressure Management Recent Flowsheet Documentation Taken 03/08/2024 161 by Hallie Oconnor RN Medication Review/Management: medications reviewed Problem: Gas Exchange Impaired Goal: Optimal Gas Exchange Outcome: Progressing Intervention: Optimize Oxygenation and Ventilation Recent Flowsheet Documentation Taken 03/08/2024 161 by Hallie Oconnor RN Head of Bed (HOB) Positioning: HOB at 20-30 degrees Problem: Pain Acute Goal: Optimal Pain Control and Function Outcome: Progressing Intervention: Prevent or Manage Pain Recent Flowsheet Documentation Taken 03/08/2024 161 by Hallie Oconnor RN Medication Review/Management: medications reviewed Problem: Fall Injury Risk Goal: Absence of Fall and Fall-Related Injury Outcome: Progressing Intervention: Identify and Manage Contributors Recent Flowsheet Documentation Taken 03/08/2024 161 by Hallie Oconnor RN Medication Review/Management: medications reviewed Intervention: Promote Injury-Free Environment Recent Flowsheet Documentation Taken 03/08/20241614 by Hallie Oconnor RN Safety Promotion/Fall Prevention: activity supervised assistive device/personal items within reach clutter free environment maintained Problem: Oral Intake Inadequate Goal: Improved Oral Intake Outcome: Progressing * Plan of Care - Fidencio Cleveland RN - 03/08/2024 2:40 PM CDT Goal Outcome Evaluation: Plan of Care Reviewed With: patient Overall Patient Progress: improvingOverall Patient Progress: improving Outcome Evaluation: Good urine OP, Afebrile, Wound care completed To Do: End of Shift Summary For vital signs and complete assessments, please see documentation flowsheets. Pertinent assessments:BP elevated, 179/87, otherwise VSS. Prn oxycodone x1, prn tylenol x1 w/ improvement. Repositioned. Frequently. Delacruz patent, good urine op. Tele:SR. Oriented x4, good appetite. Sacral wound care completed. Wound Vac in place. Mepilex to bilateral feet in place, blanchable redness to heels, elevated w/ pillows. Major Shift Events NA Treatment Plan: IV Rocephin, WOC consult Bedside Nurse:Fidencio Cleveland RN Problem: Adult Inpatient Plan of Care Goal: Plan of Care Review Description: The Plan of Care Review/Shift note should be completed every shift. The Outcome Evaluation is a brief statement about your assessment that the patient is improving, declining, or no change. This information will be displayed automatically on your shift note. Outcome: Progressing Flowsheets (Taken 03/08/2024 1440) Outcome Evaluation: Good urine OP, Afebrile, Wound care completed Plan of Care Reviewed With: patient Overall Patient Progress: improving Goal: Patient-Specific Goal (Individualized) Description: You can add care plan individualizations to a care plan. Examples of Individualizationmight be: Parent requests to be called daily at 9am for status, I have a hard time hearing out of my right ear, or Do not touch me to wake me up as it startles me. Outcome: Progressing Goal: Absence of Hospital-Acquired Illness or Injury Outcome: Progressing Intervention: Prevent Skin Injury Recent Flowsheet Documentation Taken 03/08/2024 1200 by Fidencio Cleveland RN Body Position: weight shifting Taken 03/08/2024 1000 by Fidencio Cleveland RN Body Position: weight shifting Goal: Optimal Comfort and Wellbeing Outcome: Progressing Intervention: Monitor Pain and Promote Comfort Recent Flowsheet Documentation Taken 03/08/2024 0730 by Fidecnio Cleveland RN Pain Management Interventions: medication (see MAR) Goal: Readiness for Transition of Care Outcome: Progressing Problem: Infection Goal: Absence of Infection Signs and Symptoms Outcome: Progressing Problem: Comorbidity Management Goal: Blood Pressure in Desired Range Outcome: Progressing * Plan of Care - Nicole Lowery RN - 03/08/2024 8:23 AM CDT End of Shift Summary For vital signs and complete assessments, please see documentation flowsheets. Pertinent assessments: BP elevated, other VSS on RA. Pain in coccyx, hip area 05/22, prn oxycodone given. Wound vac in place. Chronic delacruz with adequate output. Tele: sinus yaneth 58. Treatment Plan: IV Rocephin, WOC consult Goal Outcome Evaluation: Plan of Care Reviewed With: patient Overall Patient Progress: improvingOverall Patient Progress: improving Outcome Evaluation: delacruz with clear yellow output Problem: Adult Inpatient Plan of Care Goal: Plan of Care Review Description: The Plan of Care Review/Shift note should be completed every shift. The Outcome Evaluation is a brief statement about your assessment that the patient is improving, declining, or no change. This information will be displayed automatically on your shift note. Outcome: Progressing Flowsheets (Taken 03/08/2024821) Outcome Evaluation: delacruz with clear yellow output Plan of Care Reviewed With: patient Overall Patient Progress: improving Goal: Patient-Specific Goal (Individualized) Description: You can add care plan individualizations to a care plan. Examples of Individualizationmight be: Parent requests to be called daily at 9am for status, I have a hard time hearing out of my right ear, or Do not touch me to wake me up as it startles me. Outcome: Progressing Goal: Absence of Hospital-Acquired Illness or Injury Outcome: Progressing Intervention: Identify and Manage Fall Risk Recent Flowsheet Documentation Taken 03/08/202448 by Nicole Lowery RN Safety Promotion/Fall Prevention: safety round/check completed Intervention: Prevent Skin Injury Recent Flowsheet Documentation Taken 03/08/202448 by Nicole Lowery RN Body Position: weight shifting Goal: Optimal Comfort and Wellbeing Outcome: Progressing Intervention: Monitor Pain and Promote Comfort Recent Flowsheet Documentation Taken 03/08/2024 0638 by Nicole Lowery, stretcher leveler operator Interventions: medication (see MAR) Taken 03/08/202448 by Nicole Lowery, stretcher leveler operator Interventions: medication (see MAR) repositioned Goal: Readiness for Transition of Care Outcome: Progressing Problem: Infection Goal: Absence of Infection Signs and Symptoms Outcome: Progressing Problem: Comorbidity Management Goal: Blood Pressure in Desired Range Outcome: Progressing Intervention: Maintain Blood Pressure Management Recent Flowsheet Documentation Taken 03/08/202448 by Nicole Lowery RN Medication Review/Management: medications reviewed Problem: Gas Exchange Impaired Goal: Optimal Gas Exchange Outcome: Progressing Intervention: Optimize Oxygenation and Ventilation Recent Flowsheet Documentation Taken 03/08/202448 by Nicole Lowery RN Head of Bed (HOB) Positioning: HOB at 20 degrees Problem: Pain Acute Goal: Optimal Pain Control and Function Outcome: Progressing Intervention: Develop Pain Management Plan Recent Flowsheet Documentation Taken 03/08/2024 06 by Nicole Lowery RNstretcher leveler operator Interventions: medication (see MAR) Taken 03/08/202448 by Nicole Lowery RNstretcher leveler operator Interventions: medication (see MAR) repositioned Intervention: Prevent or Manage Pain Recent Flowsheet Documentation Taken 03/08/202448 by Nicole Lowery RN Medication Review/Management: medications reviewed Problem: Fall Injury Risk Goal: Absence of Fall and Fall-Related Injury Outcome: Progressing Intervention: Identify and Manage Contributors Recent Flowsheet Documentation Taken 03/08/202448 by Nicole Lowery RN Medication Review/Management: medications reviewed Intervention: Promote Injury-Free Environment Recent Flowsheet Documentation Taken 03/08/202448 by Nicole Lowery RN Safety Promotion/Fall Prevention: safety round/check completed Problem: Oral Intake Inadequate Goal: Improved Oral Intake Outcome: Progressing * Plan of Care - Tangela Mcnair RN - 03/07/2024 11:55 PM CDT To Do: End of Shift Summary For vital signs and complete assessments, please see documentation flowsheets. Pertinent assessments: A&Ox4. BP elevated, other VSS on RA. Pain in coccyx, hip area 05/22. Wound vac in place. Delacruz draining clear and yellow. Tolerating regular diet. 3 lumen internal jugular SL. Heels offloaded with pillows. Major Shift Events transferred from ICU Treatment Plan: IV abx, WOC consult, wound vac, delacruz. Bedside Nurse: Tangela Mcnair RN Goal Outcome Evaluation: Plan of Care Reviewed With: patient Overall Patient Progress: improvingOverall Patient Progress: improving Outcome Evaluation: Delacruz draining clear/yellow. WOC consult. Tolerating regular diet. Problem: Adult Inpatient Plan of Care Goal: Plan of Care Review Description: The Plan of Care Review/Shift note should be completed every shift. The Outcome Evaluation is a brief statement about your assessment that the patient is improving, declining, or no change. This information will be displayed automatically on your shift note. Outcome: Progressing Flowsheets (Taken 03/07/2024 1015) Outcome Evaluation: Delacruz draining clear/yellow. WOC consult. Tolerating regular diet. Plan of Care Reviewed With: patient Overall Patient Progress: improving Goal: Patient-Specific Goal (Individualized) Description: You can add care plan individualizations to a care plan. Examples of Individualizationmight be: Parent requests to be called daily at 9am for status, I have a hard time hearing out of my right ear, or Do not touch me to wake me up as it startles me. Outcome: Progressing Goal: Absence of Hospital-Acquired Illness or Injury Outcome: Progressing Intervention: Prevent and Manage VTE (Venous Thromboembolism) Risk Recent Flowsheet Documentation Taken 03/07/20241830 by Tangela Mcnair RN VTE Prevention/Management: SCDs (sequential compression devices) off Goal: Optimal Comfort and Wellbeing Outcome: Progressing Intervention: Monitor Pain and Promote Comfort Recent Flowsheet Documentation Taken 03/07/20241830 by Tangela Mcnair RN Pain Management Interventions: repositioned Goal: Readiness for Transition of Care Outcome: Progressing Problem: Infection Goal: Absence of Infection Signs and Symptoms Outcome: Progressing Problem: Comorbidity Management Goal: Blood Pressure in Desired Range Outcome: Progressing Problem: Gas Exchange Impaired Goal: Optimal Gas Exchange Outcome: Progressing Problem: Pain Acute Goal: Optimal Pain Control and Function Outcome: Progressing Intervention: Develop Pain Management Plan Recent Flowsheet Documentation Taken 03/07/20241830 by Tangela Mcnair RN Pain Management Interventions: repositioned Problem: Fall Injury Risk Goal: Absence of Fall and Fall-Related Injury Outcome: Progressing Problem: Oral Intake Inadequate Goal: Improved Oral Intake Outcome: Progressing * Plan of Care - Sol Beasley RN - 03/07/2024 7:37 PM CDT ICU End of Shift Summary. For vital signs and complete assessments, please see documentation flowsheets. Pertinent assessments: Neuro:A/O x4 Cardiac:SR-ST. Metoprolol 25 additional ordered and given. Resp: WDL GI: + bowel sounds, eating regular diet :Chronic delacruz, UO adequate Skin: Chronic wounds with delicate, fragile skin Lines: 3L internal jugular central line. Attempted PIV, may need VAT tomorrow Drips: ABX and IVP steroids Major Shift Events: transferred off ICU Plan (Upcoming Events): TBD Discharge/Transfer Needs: Home with daughter when able Bedside Shift Report Completed : Yes Bedside Safety Check Completed: YEs Goal Outcome Evaluation: Improving Plan of Care Reviewed With: patient Overall Patient Progress: improvingOverall Patient Progress: improving Outcome Evaluation: Pt doing well today, off pressors for > 24 hours. Delacruz with ok urine output. WBC bettter. Coccys wound cares done, await WOC consult. OK to transfer off ICU to remote tele- med surg . Pt ate 2 meals today and reports feeling better. * Plan of Care - Charlotte Torres RN - 03/07/2024 7:01 AM CDT Problem: Adult Inpatient Plan of Care Goal: Plan of Care Review Description: The Plan of Care Review/Shift note should be completed every shift. The Outcome Evaluation is a brief statement about your assessment that the patient is improving, declining, or no change. This information will be displayed automatically on your shift note. Outcome: Progressing Flowsheets (Taken 03/07/2024 0701) Outcome Evaluation: No longer requiring oxygen, using home Bipap when asleep. Afebrile. Chronic pain, improving with home regimen of PRN oxycodone. Receiving IV antibiotics. Slept well overnight. Blood pressure remaining stable, sometimes hypertensive, has not been on levo during my shift. Low urine output, has some weight gain since admission but lasix is currently being held. Dressing changed on coccyx, daughter to bring in wound care supplies from home on Friday. Plan of Care Reviewed With: patient Overall Patient Progress: improving Goal: Patient-Specific Goal (Individualized) Description: You can add care plan individualizations to a care plan. Examples of Individualizationmight be: Parent requests to be called daily at 9am for status, I have a hard time hearing out of my right ear, or Do not touch me to wake me up as it startles me. Outcome: Progressing Flowsheets (Taken 03/06/20241999) Individualized Care Needs: Prefers to lay on left side off of back and hips. Likes heels floated onpillows. Daughter to bring in wound care supplies from home for WOC consult, typically changes dressing daily. Uses home Bipap while sleeping, RT verified okay to use, order placed by hospitalist. Has wound vac placed prior to admission. Has chronic delacruz catheter, changed monthly. Uses wheelchair at home, paraplegia. Goal: Absence of Hospital-Acquired Illness or Injury Outcome: Progressing Intervention: Identify and Manage Fall Risk Recent Flowsheet Documentation Taken 03/07/2024 042 by Charlotte Torres RN Safety Promotion/Fall Prevention: assistive device/personal items within reach increased rounding and observation increase visualization of patient patient and family education room door open room near nurse's station room organization consistent safety round/check completed supervised activity Taken 03/07/2024 0000 by Charlotte Torres RN Safety Promotion/Fall Prevention: assistive device/personal items within reach increased rounding and observation increase visualization of patient patient and family education room door open room near nurse's station room organization consistent safety round/check completed supervised activity Taken 03/06/20241999 by Charlotte Torres RN Safety Promotion/Fall Prevention: activity supervised assistive device/personal items within reach increased rounding and observation increase visualization of patient room door open room near nurse's station room organization consistent safety round/check completed supervised activity Intervention: Prevent Skin Injury Recent Flowsheet Documentation Taken 03/07/2024 042 by Charlotte Torres RN Body Position: weight shifting heels elevated legs elevated left side-lying Skin Protection: incontinence pads utilized silicone foam dressing in place transparent dressing maintained adhesive use limited Device Skin Pressure Protection: absorbent pad utilized/changed positioning supports utilized tubing/devices free from skin contact [id number] areas padded Taken 03/07/2024 0000 by Charlotte Torres RN Body Position: (prefers left side) left side-lying heels elevated Skin Protection: incontinence pads utilized adhesive use limited silicone foam dressing in place transparent dressing maintained Device Skin Pressure Protection: absorbent pad utilized/changed positioning supports utilized tubing/devices free from skin contact [id number] areas padded Taken 03/06/20242238 by Charlotte Torres RN Body Position: turned side-lying heels elevated legs elevated left Taken 03/06/20241999 by Charlotte Torres RN Body Position: weight shifting right heels elevated tilted Skin Protection: adhesive use limited incontinence pads utilized silicone foam dressing in place transparent dressing maintained Device Skin Pressure Protection: absorbent pad utilized/changed positioning supports utilized tubing/devices free from skin contact Intervention: Prevent and Manage VTE (Venous Thromboembolism) Risk Recent Flowsheet Documentation Taken 03/07/2024 042 by Charlotte Torres RN VTE Prevention/Management: SCDs (sequential compression devices) off Taken 03/07/2024 by Charlotte Torres RN VTE Prevention/Management: SCDs (sequential compression devices) off Taken 03/06/20241999 by Charlotte Torres RN VTE Prevention/Management: SCDs (sequential compression devices) off Intervention: Prevent Infection Recent Flowsheet Documentation Taken 03/07/2024 042 by Charlotte Torres RN Infection Prevention: equipment surfaces disinfected hand hygiene promoted personal protective equipment utilized rest/sleep promoted single patient room provided visitors restricted/screened Taken 03/07/2024 by Charlotte Torres RN Infection Prevention: equipment surfaces disinfected hand hygiene promoted personal protective equipment utilized rest/sleep promoted single patient room provided visitors restricted/screened Taken 03/06/20241999 by Charlotte Torres RN Infection Prevention: hand hygiene promoted personal protective equipment utilized rest/sleep promoted single patient room provided Goal: Optimal Comfort and Wellbeing Outcome: Progressing Intervention: Monitor Pain and Promote Comfort Recent Flowsheet Documentation Taken 03/07/2024 by Charlotte Torres RN Pain Management Interventions: (not due for pain medications at this time) rest other (see comments) Taken 03/06/20242238 by Charlotte Torres RN Pain Management Interventions: repositioned rest relaxation techniques promoted quiet environment facilitated Taken 03/06/20242138 by Charlotte Torres RN Pain Management Interventions: medication (see MAR) repositioned Taken 03/06/20241999 by Kampa, Charlotte B, stretcher leveler operator Interventions: (not due for pain medication at this time) repositioned other (see comments) Intervention: Provide Person-Centered Care Recent Flowsheet Documentation Taken 03/07/2024421 by Charlotte Torres RN Trust Relationship/Rapport: care explained choices provided empathic listening provided questions answered questions encouraged reassurance provided thoughts/feelings acknowledged Taken 03/07/2024 0000 by Charlotte Torers RN Trust Relationship/Rapport: care explained choices provided reassurance provided thoughts/feelings acknowledged Taken 03/06/20241999 by Charlotte Torres RN Trust Relationship/Rapport: care explained choices provided emotional support provided empathic listening provided questions answered questions encouraged reassurance provided thoughts/feelings acknowledged Goal: Readiness for Transition of Care Outcome: Progressing Intervention: Mutually Develop Transition Plan Recent Flowsheet Documentation Taken 03/06/2024 2100 by Charlotte Torres RN Equipment Currently Used at Home: wheelchair, manual Problem: Infection Goal: Absence of Infection Signs and Symptoms Outcome: Progressing Intervention: Prevent or Manage Infection Recent Flowsheet Documentation Taken 03/07/2024421 by Charlotte Torres RN Infection Management: aseptic technique maintained Isolation Precautions: contact precautions maintained Taken 03/07/2024 0000 by Charlotte Torres RN Infection Management: aseptic technique maintained Isolation Precautions: contact precautions maintained Taken 03/06/20241999 by Charlotte Torres RN Infection Management: aseptic technique maintained Isolation Precautions: contact precautions maintained Problem: Comorbidity Management Goal: Blood Pressure in Desired Range Outcome: Progressing Intervention: Maintain Blood Pressure Management Recent Flowsheet Documentation Taken 03/07/2024421 by Charlotte Torres RN Medication Review/Management: medications reviewed high-risk medications identified Taken 03/07/2024 0000 by Charlotte Torres RN Medication Review/Management: medications reviewed high-risk medications identified Problem: Gas Exchange Impaired Goal: Optimal Gas Exchange Outcome: Progressing Intervention: Optimize Oxygenation and Ventilation Recent Flowsheet Documentation Taken 03/07/2024421 by Charlotte Torres RN Head of Bed (HOB) Positioning: HOB at 15 degrees Taken 03/07/2024 0000 by Charlotte Torres RN Head of Bed (HOB) Positioning: HOB flat Taken 03/06/20249 by Charlotte Torres RN Head of Bed (HOB) Positioning: HOB lowered Problem: Pain Acute Goal: Optimal Pain Control and Function Outcome: Progressing Intervention: Develop Pain Management Plan Recent Flowsheet Documentation Taken 03/07/2024 0000 by Charlotte Torres RN Pain Management Interventions: (not due for pain medications at this time) rest other (see comments) Taken 03/06/2024 2239 by Charlotte Torres RN Pain Management Interventions: repositioned rest relaxation techniques promoted quiet environment facilitated Taken 03/06/2024 2139 by Charlotte Torres RN Pain Management Interventions: medication (see MAR) repositioned Intervention: Prevent or Manage Pain Recent Flowsheet Documentation Taken 03/07/2024 0422 by Charlotte Torres RN Medication Review/Management: medications reviewed high-risk medications identified Taken 03/07/2024 0000 by Charlotte Torres RN Medication Review/Management: medications reviewed high-risk medications identified Problem: Fall Injury Risk Goal: Absence of Fall and Fall-Related Injury Outcome: Progressing Intervention: Identify and Manage Contributors Recent Flowsheet Documentation Taken 03/07/2024 042 by Charlotte Torres RN Medication Review/Management: medications reviewed high-risk medications identified Taken 03/07/2024 0000 by Charlotte Torres RN Medication Review/Management: medications reviewed high-risk medications identified Intervention: Promote Injury-Free Environment Recent Flowsheet Documentation Taken 03/07/2024 042 by Charlotte Torres RN Safety Promotion/Fall Prevention: assistive device/personal items within reach increased rounding and observation increase visualization of patient patient and family education room door open room near nurse's station room organization consistent safety round/check completed supervised activity Taken 03/07/2024 0000 by Charlotte Torres RN Safety Promotion/Fall Prevention: assistive device/personal items within reach increased rounding and observation increase visualization of patient patient and family education room door open room near nurse's station room organization consistent safety round/check completed supervised activity Problem: Oral Intake Inadequate Goal: Improved Oral Intake Outcome: Progressing Goal Outcome Evaluation: * Plan of Care - Sol Beasley RN - 03/06/2024 8:14 PM CDT ICU End of Shift Summary. For vital signs and complete assessments, please see documentation flowsheets. Pertinent assessments: Neuro:x4 Cardiac: SR Resp: clear/dim GI: LBM this am : see flowsheets. Wet to dry dressing change done Skin: Need WOCN consult, vac in place Lines: 3L internal jugular, dressing changed today Drips: oFF, ABX and TKO Major Shift Events: Levophed stopped +Blood cultures noted Plan (Upcoming Events): TBD. Now OFF pressors, stable Discharge/Transfer Needs: To previous home cares Bedside Shift Report Completed : YEs Bedside Safety Check Completed: YEs Problem: Adult Inpatient Plan of Care Goal: Plan of Care Review Description: The Plan of Care Review/Shift note should be completed every shift. The Outcome Evaluation is a brief statement about your assessment that the patient is improving, declining, or no change. This information will be displayed automatically on your shift note. Outcome: Progressing Flowsheets (Taken 03/06/20242013) Plan of Care Reviewed With: patient family Overall Patient Progress: improving Goal Outcome Evaluation: progressing Plan of Care Reviewed With: patient, family Overall Patient Progress: improvingOverall Patient Progress: improving * Pharmacy-Admission Medication History - Nimco Barbour, [facility] - 03/06/2024 11:32 AM CDT Pharmacist Admission Medication History Admission medication history is complete. The information provided in this note is only as accurateas the sources available at the time of the update. Information Source(s): Patient, Family member, Patient's pharmacy, Hospital records, and Prescription bottles via in-person and phone Pertinent Information: called [facility] to confirm strength of kcl they dispensed. They dispensed 10meq tabs, with directions for 2 tabs BID. Pt states taking 2 tabs daily. Changes made to [employer] medication list: Added: probiotic, tylenol, zinc, vitamin c, naproxen, lasix, gabapnetin, metoprolol xl, oxycodone, kcl, prednisone 10 daily Deleted: from 2013:dulcolas supp prn, ativan 0.5mg bid prn, metoprolol 50mg bid, collagen, zofran prn, miralax prn, prednisone 5mg daily, senna/doc 1 bid Changed: None Allergies reviewed with patient and updates made in EHR: yes Medication History Completed By: Nimco Barbour RPH 03/06/2024 11:32 AM [employer] Med List Medication Sig Last Dose acetaminophen (TYLENOL 8 HOUR ARTHRITIS PAIN) 650 MG CR tablet Take 1,300 mg by mouth 2 times dailyas needed for mild pain or fever 03/05/2024 at pm Ascorbic Acid (VITAMIN C PO) Take 1 tablet by mouth every evening 03/05/2024 at pm furosemide (LASIX) 20 MG tablet Take 20 mg by mouth daily 03/05/2024 at am gabapentin (NEURONTIN) 300 MG capsule Take 300 mg by mouth 3 times daily 03/05/2024 at pm lactobacillus rhamnosus, GG, (CULTURELL) capsule Take 1 capsule by mouth daily 03/05/2024 at am metoprolol succinate ER (TOPROL XL) 50 MG 24 hr tablet Take 50 mg by mouth daily 03/05/2024 at am naproxen sodium (ANAPROX) 220 MG tablet Take 220 mg by mouth daily (with breakfast) 03/05/2024 at am oxyCODONE (ROXICODONE) 5 MG tablet Take 7.5 mg by mouth every 4 hours as needed for severe pain 03/05/2024 at 1730 potassium chloride telly ER (KLOR-CON M10) 10 MEQ CR tablet Take 20 mEq by mouth daily 03/05/2024 at am predniSONE (DELTASONE) 5 MG tablet Take 10 mg by mouth daily 03/05/2024 at am zinc sulfate (ZINCATE) 220 (50 Zn) MG capsule Take 220 mg by mouth every evening 03/05/2024 at pm * Provider Notification - Sol Beasley RN - 03/06/2024 7:57 AM CDT Pt has K of 3.3 from 51. I dont see that it was ever replaced. Would you like this redrawn or replaced? K replacement protocol ordered and started per Hospitalist [place]. 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] Ordered: 03/14/2024 documented as of this encounter Procedures Procedure Name Priority Date/Time Associated Diagnosis Comments BASIC METABOLIC PANEL Routine 03/14/2024 6:02 AM CDT CBC WITH PLATELETS Routine 03/14/2024 6: 02 AM CDT POTASSIUM Routine 03/13/2024 5:04 AM CDT EKG 12-LEAD, TRACING ONLY Routine 03/12/2024 11:32 AM CDT BASIC METABOLIC PANEL Routine 03/12/2024 6:03 AM CDT CBC WITH PLATELETS Routine 03/12/2024 6: 03 AM CDT POTASSIUM Timed 03/11/2024 1:51 PM CDT CBC WITH PLATELETS Routine 03/11/2024 1: 51 PM CDT BASIC METABOLIC PANEL Routine 03/11/2024 [...] WHOLE BLOOD STAT 03/06/2024 3:13 AM CDT ROUTINE UA WITH MICROSCOPIC STAT 03/06/2024 2:54 AM CDT URINE CULTURE Add-On 03/06/2024 2:54 AM CDT VERIGENE GN PANEL Routine 03/06/2024 1:5 5 AM CDT BLOOD CULTURE STAT 03/06/2024 1:55 AM CDT INFLUENZA A/B, RSV, & SARS-COV2 PCR STAT 03/06/2024 1:45 AM CDT XR CHEST PORT 1 VIEW STAT 03/06/2024 1:33 AM CDT BLOOD CULTURE STAT 03/06/2024 12:56 AM CDT EXTRA TUBE STAT 03/06/2024 12:52 AM CDT EXTRA RED TOP TUBE STAT 03/06/2024 12 :52 AM CDT EXTRA BLUE TOP TUBE STAT 03/06/2024 1 2:52 AM CDT LACTIC ACID WHOLE BLOOD WITH 1X REPEAT IN 2 HR WHEN >2 STAT 03/06/2024 12:52 AM CDT CBC WITH PLATELETS AND DIFFERENTIAL STAT 03/06/2024 12:52 AM CDT PROCALCITONIN STAT 03/06/2024 12:52 AM CDT CBC WITH PLATELETS & DIFFERENTIAL STAT 03/06/2024 12:52 AM CDT COMPREHENSIVE METABOLIC PANEL STAT 03/06/2024 12:52 AM CDT documented in this encounter Results * (ABNORMAL) CBC with platelets (03/14/2024 6:02 AM CDT) WBC Count 15.5(H) 4.0 - 11.0 10e3/uL [...] LAB - BLOOD ORDER [facility] Care Lab [address] Lab (1st floor, no room number) [place] [address], [facility] * (ABNORMAL) Basic metabolic panel (03/14/2024 6:02 AM CDT) Sodium 140 135 - 145 mmol/L 03/14/2024 [...] MD LAB - BLOOD ORDER [facility] Care Lab [address] [facility] Lab (1st floor, no room number) [place] [address] * Potassium (03/13/2024 5:04 AM CDT) Potassium 3.9 3.4 - 5.3 mmol/L 03/13/2024 5:44 AM CDT LABORATORY Blood TOPOGRAPHY UNKNOWN / Unknown VAD(CVC, PICC) / Unknown 03/13/2024 5:04 AM CDT 03/13/2024 5:22 AM CDT Don Ramirez MD LAB - BLOOD ORDER [facility] Acute Care Lab [address] Lab (1st floor, no room number) [place] [address] * EKG 12-lead, tracing only (03/12/2024 11:32 AM CDT) Systolic Blood Pressure mmHg RADIOLOGY RESULTS Diastolic Blood Pressure mmHg RADIOLOGY RESULTS Ventricular Rate 89 BPM RAD IOLOGY RESULTS Atrial Rate 89 BPM RADIOLOG Y RESULTS IA Interval 128 ms RADIOLOG Y RESULTS QRS Duration 118 ms RADIOLO GY RESULTS QT 376 ms RADIOLOGY RESULTS QTc 457 ms RADIOLOGY RESULTS P [place] 59 degrees RADIOLOGY RESULTS R AXIS 93 degrees RADIOLOGY RESULTS T [place] 53 degrees RADIOLOGY RESULTS Interpretation ECG Sinus rhythm Right bundle branch block Abnormal ECG When compared with ECG of 06-MAR-2024 04:53, Nonspecific T wave abnormality no longer evident in Inferior leads Confirmed by MD MCALLISTER MICHAEL [id number]) on 03/12/2024 10:11:09 PM RADIOLOGY RESULTS 03/12/2024 11:3 2 AM CDT 03/12/2024 10:11 PM CDT Al Trae Ramirez MD ECG ORDERABLES RADIOLOGY RESULTS * (ABNORMAL) CBC with platelets (03/12/2024 6:03 AM CDT) WBC Count 17.6(H) 4.0 - 11.0 10e3/uL 03/12/2024 6:27 AM CDT [facility] RBC Count 3.88 3.80 - 5.20 10e6/uL 03/12/2024 6:27 AM CDT [facility] Hemoglobin 10.2(L) 11.7 - 15.7 g/dL 03/12/2024 6:27 AM CDT [facility] Hematocrit 34.7(L) 35.0 - 47.0 % 03/12/2024 6:27 AM CDT [facility] MCV 89 78 - 100 fL 03/12/2024 6:27 AM CDT [facility] MCH 26.3(L) 26.5 - 33.0 pg 03/12/2024 6:27 AM CDT [facility] MCHC 29.4(L) 31.5 - 36.5 g/dL 03/12/2024 6:27 AM CDT [facility] RDW 18.1(H) 10.0 - 15.0 % 03/12/2024 6:27 AM CDT [facility] Platelet Count 323 150 - 450 10e3/uL 03/12/2024 6:27 AM CDT [facility] Blood CENTRAL VENOUS CATHETER / Unknown VAD(CVC, PICC) / Unknown 03/12/2024 6:03 AM CDT 03/12/2024 6:24 AM CDT Fox Watson MD LAB - BLOOD ORDERABL ES LABORATORY [facility] Acute Care Lab [address] [facility] Lab (1st floor, no room number) [place] [address] * (ABNORMAL) Basic metabolic panel (03/12/2024 6:03 AM CDT) [facility] Sodium 143 135 - 145 mmol/L 03/12/2024 6:58 AM CDT [facility] Comment:Reference intervals for this test were updated on 07/08/2023 to more accurately reflect our healthy population. There may be differences in the flagging of prior results with similar values performed with this method. Interpretation of those prior results can be made in the context of the updated reference intervals. Potassium 4.0 3.4 - 5.3 mmol/L 03/12/2024 6:58 AM CDT LABORATORY Chloride 104 98 - 107 mmol/L 03/12/2024 6:58 AM CDT LABORATORY Carbon Dioxide (CO2) 28 22 - 29 mmol/L 03/12/2024 6:58 AM CDT LABORATORY Anion Gap 11 7 - 15 mmol/L 03/12/2024 6:58 AM CDT LABORATORY Urea Nitrogen 15.3 8.0 - 23.0 mg/dL 03/12/2024 6:58 AM CDT LABORATORY Creatinine 0.25(L) 0.51 - 0.95 mg/dL 03/12/2024 6:58 AM CDT LABORATORY GFR Estimate >90 >60 mL/min/1. 73m2 03/12/2024 6:58 AM CDT [facility] Calcium 8.4(L) 8.8 - 10.2 mg/dL 03/12/2024 6:58 AM CDT [facility] Glucose 91 70 - 99 mg/dL 03/12/2024 6:58 AM CDT [facility] Blood CENTRAL VENOUS CATHETER / Unknown VAD(CVC, PICC) / Unknown 03/12/2024 6:03 AM CDT 03/12/2024 6:24 AM CDT Fox Watson MD LAB - BLOOD ORDERABL ES [facility] LAB[facility] Acute Care Lab [address] [facility] Lab (1st floor, no room number) [place] [address] * (ABNORMAL) CBC with platelets (03/11/2024 1:51 PM CDT) WBC Count 19.5(H) 4.0 - 11.0 10e3/uL 03/11/2024 2:03 PM CDT [facility] RBC Count 3.68(L) 3.80 - 5.20 10e6/uL 03/11/2024 2:03 PM CDT [facility] Hemoglobin 10.0(L) 11.7 - 15.7 g/dL 03/11/2024 2:03 PM CDT [facility] Hematocrit 32.7(L) 35.0 - 47.0 % 03/11/2024 2:03 PM CDT [facility] MCV 89 78 - 100 fL 03/11/2024 2:03 PM CDT [facility] MCH 27.2 26.5 - 33.0 pg 03/11/2024 2:03 PM CDT [facility] MCHC 30.6(L) 31.5 - 36.5 g/dL 03/11/2024 2:03 PM CDT [facility] RDW 17.6(H) 10.0 - 15.0 % 03/11/2024 2:03 PM CDT [facility] Platelet Count 314 150 - 450 10e3/uL 03/11/2024 2:03 PM CDT [facility] Blood BLOOD SPECIMEN / Unknown Venipuncture / Unknown 03/11/2024 1:51 PM CDT 03/11/2024 2:01 PM CDT Fox Watson MD LAB - BLOOD ORDERABL ES Performing Organization Address City/[facility]/ZIP Co de Phone Number [facility] Acute Care Lab [address] Lab (1st floor, no room number) [place] [address] * Potassium (03/11/2024 1:51 PM CDT) Potassium 4.3 3.4 - 5.3 mmol/L 03/11/2024 2:18 PM CDT LABORATORY Blood BLOOD SPECIMEN / Unknown Venipuncture / Unknown 03/11/2024 1:51 PM CDT 03/11/2024 2:00 PM CDT Fox Watson MD LAB - BLOOD ORDERABL ES Performing Organization Address [facility] Co de Phone Number [facility] Lab [address] Lab (1st floor, no room number) [place] [phone] * (ABNORMAL) Basic metabolic panel (03/11/2024 6:18 AM CDT) Sodium 147(H) 135 - 145 mmol/L 03/11/2024 6:55 AM CDT [facility] Comment:Reference intervals for this test were updated on 07/08/2023 to more accurately reflect our healthy population. There may be differences in the flagging of prior results with similar values performed with this method. Interpretation of those prior results can be made in the context of the updated reference intervals. Potassium 3.2(L) 3.4 - 5.3 mmol/L 03/11/2024 6:55 AM CDT LABORATORY Chloride 109(H) 98 - 107 mmol/L 03/11/2024 6:55 AM CDT [facility] Carbon Dioxide (CO2) 28 22 - 29 mmol/L 03/11/2024 6:55 AM CDT [facility] Anion Gap 10 7 - 15 mmol/L 03/11/2024 6:55 AM CDT [facility] Urea Nitrogen 24.1(H) 8.0 - 23.0 mg/dL 03/11/2024 6:55 AM CDT [facility] Creatinine 0.30(L) 0.51 - 0.95 mg/dL 03/11/2024 6:55 AM CDT [facility] GFR Estimate >90 >60 mL/min/1. 73m2 03/11/2024 6:55 AM CDT [facility] Calcium 8.1(L) 8.8 - 10.2 mg/dL 03/11/2024 6:55 AM CDT [facility] Glucose 97 70 - 99 mg/dL 03/11/2024 6:55 AM CDT [facility] Blood BLOOD SPECIMEN / Unknown Venipuncture / Unknown 03/11/2024 6:18 AM CDT 03/11/2024 6:25 AM CDT Fox Watson MD LAB - BLOOD ORDERABL ES [facility] LAB[facility]ORY [facility] Acute Care Lab [address] [facility] Lab (1st floor, no room number) [place] [address] * (ABNORMAL) CBC with platelets (03/10/2024 2:59 PM CDT) WBC Count 16.5(H) 4.0 - 11.0 10e3/uL 03/10/2024 3:18 PM CDT [facility] RBC Count 3.76(L) 3.80 - 5.20 10e6/uL 03/10/2024 3:18 PM CDT [facility] Hemoglobin 10.1(L) 11.7 - 15.7 g/dL 03/10/2024 3:18 PM CDT [facility] Hematocrit 32.9(L) 35.0 - 47.0 % 03/10/2024 3:18 PM CDT [facility] MCV 88 78 - 100 fL 03/10/2024 3:18 PM CDT [facility] MCH 26.9 26.5 - 33.0 pg 03/10/2024 3:18 PM CDT [facility] MCHC 30.7(L) 31.5 - 36.5 g/dL 03/10/2024 3:18 PM CDT [facility] RDW 17.3(H) 10.0 - 15.0 % 03/10/2024 3:18 PM CDT [facility] Platelet Count 331 150 - 450 10e3/uL 03/10/2024 3:18 PM CDT [facility] Blood BLOOD SPECIMEN / Unknown Venipuncture / Unknown 03/10/2024 2:59 PM CDT 03/10/2024 3:16 PM CDT Fox Watson MD LAB - BLOOD ORDERABL ES [facility] Lab [address] Lab (1st floor, no room number) [place] [address], [facility] * Potassium (03/10/2024 5:23 AM CDT) Potassium 3.6 3.4 - 5.3 mmol/L 03/10/2024 5:58 AM CDT [facility] Blood VENOUS BLOOD / Unknown VAD(CVC, PICC) / Unknown 03/10/2024 5:23 AM CDT 03/10/2024 5:29 AM CDT Fox Watson MD LAB - BLOOD ORDERABL ES Performing Organization Address City/[facility]/ZIP Co de Phone Number [facility] Lab [address] Lab (1st floor, no room number) [place] [address], [facility] * Potassium (03/09/2024 6:16 AM CDT) Potassium 3.9 3.4 - 5.3 mmol/L 03/09/2024 7:13 AM CDT [facility] Blood VENOUS LINE / Unknown VAD(CVC, PICC) / Unknown 03/09/2024 6:16 AM CDT 03/09/2024 6:29 AM CDT Chago Vicente DO LAB - BLOOD ORDERAB LES [facility] Lab [address] Lab (1st floor, no room number) [address] * (ABNORMAL) Glucose by meter (03/09/2024 2:17 AM CDT) GLUCOSE BY METER POCT 171(H) 70 - 99 mg/dL 03/09/2024 2:29 AM CDT [facility] POC Blood, Capillary BLOOD SPECIMEN / Unknown 03/09/2024 2:17 AM CDT 03/09/2024 2:29 AM CDT Chago Vicente DO LAB - BEAKER POCT LABORATORY POC [facility] Care Lab [address] Lab (1st floor, no room number) [address] * Potassium (03/08/2024 9:21 AM CDT) Potassium 3.9 3.4 - 5.3 mmol/L 03/08/2024 9:43 AM CDT LABORATORY Blood VENOUS LINE / Unknown VAD(CVC, PICC) / Unknown 03/08/2024 9:21 AM CDT 03/08/2024 9:25 AM CDT Apple Burt DO LAB - BLOOD O RDERABLES LABORATORY [facility] Care Lab [address] Lab (1st floor, no room number) [address] * (ABNORMAL) Glucose by meter (03/08/2024 2:24 AM CDT) GLUCOSE BY METER POCT 165(H) 70 - 99 mg/dL 03/08/2024 2:32 AM CDT RH LAB[facility] POC Blood, Capillary BLOOD SPECIMEN / Unknown 03/08/2024 2:24 AM CDT 03/08/2024 2:32 AM CDT Chago Vicente DO LAB - BEAKER POCT LABORATORY [facility] Acute Care Lab [address] Lab (1st floor, no room number) [place] [phone] [place] [address] * Lactic Acid Whole Blood w/ 1x repeat in 2 hrs when >2 (03/07/2024 6:54 PM CDT) Lactic Acid, Initial 1.9 0.7 - 2.0 mmol/L 03/07/2024 7:12 PM CDT LABORATORY Blood BLOOD SPECIMEN / Unknown VAD(CVC, PICC) / Unknown 03/07/2024 6:54 PM CDT 03/07/2024 7:10 PM CDT Apple Burt DO LAB - BLOOD O RDERABLES Performing Organization Address [facility]/ZIP Co de Phone Number [facility] [address] Lab (1st floor, no room number) [place] [phone] * (ABNORMAL) Glucose by meter (03/07/2024 4:03 PM CDT) GLUCOSE BY METER POCT 174(H) 70 - 99 mg/dL 03/07/2024 4:11 PM CDT LABORATORY POC Blood, Capillary BLOOD SPECIMEN / Unknown 03/07/2024 4:03 PM CDT 03/07/2024 4:11 PM CDT Chago Vicente DO LAB - BEAKER POCT LABORATORY [facility] Care Lab [address] Lab (1st floor, no room number) [place] [phone] * (ABNORMAL) Glucose by meter (03/07/2024 12:13 PM CDT) GLUCOSE BY METER POCT 169(H) 70 - 99 mg/dL 03/07/2024 12:20 PM CDT LABORATORY POC Blood, Capillary BLOOD SPECIMEN / Unknown 03/07/2024 12:13 PM CDT 03/07/2024 12:20 PM CDT Chago Vicente DO LAB - BEAKER POCT Performing Organization Address City/[facility]/ZIP Co de Phone Number LABORATORY [facility] Acute Care Lab [address] Lab (1st floor, no room number) [place] [address] * (ABNORMAL) Glucose by meter (03/07/2024 8:08 AM CDT) GLUCOSE BY METER POCT 124(H) 70 - 99 mg/dL 03/07/2024 8:15 AM CDT LABORATORY POC Blood, Capillary BLOOD SPECIMEN / Unknown 03/07/2024 8:08 AM CDT 03/07/2024 8:15 AM CDT Chago JACKSON - BEAKER POCT Performing Organization Address [facility]/ZIP Co de Phone Number LABORATORY [facility] Lab [address] Lab (1st floor, no room number) [place] [address], [facility] * (ABNORMAL) Hemoglobin A1c (03/07/2024 4:31 AM CDT) Hemoglobin A1C 6.6(H) <5.7 % 03/09/2024 11:29 AM CDT LABORATORY Comment: Normal <5.7% Prediabetes 5.7-6.4% ?? Diabetes 6.5% or higher Note: Adopted from ADA consensus guidelines. Blood VENOUS LINE / Unknown VAD(CVC, PICC) / Unknown 03/07/2024 4:31 AM CDT 03/07/2024 4:36 AM CDT Chago Vicente DO LAB - BLOOD ORDERAB LES [facility] Lab [address] Lab (1st floor, no room number) [place] [address], [facility] * (ABNORMAL) Comprehensive metabolic panel (03/07/2024 4:31 AM CDT) [facility] Sodium 145 135 - 145 mmol/L 03/07/2024 [...] LAB - BLOOD O RDERABLES RH LABORATORY [facility] Acute Care Lab [address] [facility] Lab (1st floor, no room number) [place] [address] * (ABNORMAL) CBC with platelets (03/07/2024 4:31 AM CDT) WBC Count 16.3(H) 4.0 - 11.0 10e3/uL 03/07/2024 4:41 AM CDT [facility] LAB[facility] RBC Count 3.54(L) 3.80 - 5.20 10e6/uL 03/07/2024 4:41 AM CDT RH LAB[facility] Hemoglobin 9.6(L) 11.7 - 15.7 g/dL 03/07/2024 4:41 AM CDT RH LAB[facility]ORY Hematocrit 32.3(L) 35.0 - 47.0 % 03/07/2024 4:41 AM CDT RH LAB[facility]ORY MCV 91 78 - 100 fL 03/07/2024 4:41 AM CDT RH LABORATORY MCH 27.1 26.5 - 33.0 pg 03/07/2024 4:41 AM CDT RH LAB[facility]ATORY MCHC 29.7(L) 31.5 - 36.5 g/dL 03/07/2024 4:41 AM CDT RH LAB[facility]ATORY RDW 17.4(H) 10.0 - 15.0 % 03/07/2024 4:41 AM CDT LABORATORY Platelet Count 280 150 - 450 10e3/uL 03/07/2024 4:41 AM CDT RH LAB[facility]ATORY Blood VENOUS LINE / Unknown VAD(CVC, PICC) / Unknown 03/07/2024 4:31 AM CDT 03/07/2024 4:36 AM CDT Apple Burt DO LAB - BLOOD O RDERABLES [facility] Lab [address] Lab (1st floor, no room number) [place] [address] * (ABNORMAL) Glucose by meter (03/07/2024 4:14 AM CDT) GLUCOSE BY METER POCT 135(H) 70 - 99 mg/dL 03/07/2024 4:20 AM CDT LABORATORY POC Blood, Capillary BLOOD SPECIMEN / Unknown 03/07/2024 4:14 AM CDT 03/07/2024 4:20 AM CDT Chago Vicente DO LAB - BEAKER POCT Performing Organization Address [facility]/ZIP Co de Phone Number [facility] Lab [address] Lab (1st floor, no room number) [place] [phone] * Potassium (03/06/2024 9:46 PM CDT) Potassium 4.0 3.4 - 5.3 mmol/L 03/06/2024 10:13 PM CDT RH LABORATORY Blood VENOUS LINE / Unknown VAD(CVC, PICC) / Unknown 03/06/2024 9:46 PM CDT 03/06/2024 9:52 PM CDT Aplpe Burt DO LAB - BLOOD O RDERABLES Performing Organization Address City/[facility]/ZIP Co de Phone Number [facility] Lab [address] Lab (1st floor, no room number) [place] [address] * (ABNORMAL) Glucose by meter (03/06/2024 7:42 PM CDT) GLUCOSE BY METER POCT 149(H) 70 - 99 mg/dL 03/06/2024 7:49 PM CDT RH LABORATORY POC Blood, Capillary BLOOD SPECIMEN / Unknown 03/06/2024 7:42 PM CDT 03/06/2024 7:49 PM CDT Cahgo Vicente DO LAB - BEAKER POCT LABORATORY [facility] Lab [address] Lab (1st floor, no room number) [place] [address] * Blood Culture Wrist, Left (03/06/2024 4:46 PM CDT) Culture No Growth 03/11/2024 6:46 PM CDT [facility] LABORATORY Blood STRUCTURE OF LEFT WRIST REGION / Unknown Venipuncture / Unknown 03/06/2024 4:46 PM CDT 03/06/2024 5:07 PM CDT Apple Burt DO LAB - MICRO G ENERAL ORDERABLES [facility] LABORATORY [facility] Inf. Diseases Diag. Lab [address]], [address] [place] [address] * Blood Culture Arm, Left (03/06/2024 4:39 PM CDT) Culture No Growth 03/11/2024 6:46 PM CDT [facility] LABORATORY Blood STRUCTURE OF LEFT UPPER LIMB / Unknown Venipuncture / Unknown 03/06/2024 4:39 PM CDT 03/06/2024 5:07 PM CDT Apple Burt DO LAB - MICRO G ENERAL ORDERABLES [facility] LABORATORY [facility] Inf. Diseases Diag. Lab [address]], [address] [place] [address], [facility] * (ABNORMAL) Glucose by meter (03/06/2024 4:06 PM CDT) GLUCOSE BY METER POCT 123(H) 70 - 99 mg/dL 03/06/2024 4:13 PM CDT LABORATORY POC Blood, Capillary BLOOD SPECIMEN / Unknown 03/06/2024 4:06 PM CDT 03/06/2024 4:13 PM CDT Chago JACKSON - HERIBERTO POCT LABORATORY [facility] Care Lab [address] Lab (1st floor, no room number) [place] [address], [facility] * (ABNORMAL) Glucose by meter (03/06/2024 12:01 PM CDT) GLUCOSE BY METER POCT 156(H) 70 - 99 mg/dL 03/06/2024 1:40 PM CDT LABORATORY POC Blood, Capillary BLOOD SPECIMEN / Unknown 03/06/2024 12:01 PM CDT 03/06/2024 1:40 PM CDT Chago JACKSON - HERIBERTO POCT LABORATORY [facility] Lab [address] Lab (1st floor, no room number) [place] [address], [facility] * (ABNORMAL) Comprehensive metabolic panel (03/06/2024 10:05 AM CDT) Sodium 143 135 - 145 mmol/L 03/06/2024 10:36 AM CDT LABORATORY Comment:Reference intervals for this test were updated on 07/08/2023 to more accurately reflect our healthy population. There may be differences in the flagging of prior results with similar values performed with this method. Interpretation of those prior results can be made in the context of the updated reference intervals. Potassium 3.5 3.4 - 5.3 mmol/L 03/06/2024 10:36 AM CDT LABORATORY Carbon Dioxide (CO2) 21(L) 22 - 29 mmol/L 03/06/2024 10:36 AM CDT LABORATORY Anion Gap 13 7 - 15 mmol/L 03/06/2024 10:36 AM CDT LABORATORY Urea Nitrogen 21.1 8.0 - 23.0 mg/dL 03/06/2024 10:36 AM CDT LABORATORY Creatinine 0.33(L) 0.51 - 0.95 mg/dL 03/06/2024 10:36 AM CDT LABORATORY GFR Estimate >90 >60 mL/min/1. 73m2 03/06/2024 10:36 AM CDT LABORATORY Calcium 7.3(L) 8.8 - 10.2 mg/dL 03/06/2024 10:36 AM CDT LABORATORY Chloride 109(H) 98 - 107 mmol/L 03/06/2024 10:36 AM T LABORATORY Glucose 157(H) 70 - 99 mg/dL 03/06/2024 10:36 AM T LABORATORY Alkaline Phosphatase 329(H) 40 - 150 U/L 03/06/2024 10:36 AM CDT LABORATORY AST 129(H) 0 - 45 U/L 03/06/2024 10:36 AM CDT LABORATORY Comment:Reference intervals for this test were updated on 03/24/2023 to more accurately reflect our healthy population. There may be differences in the flagging of prior results with similar values performed with this method. Interpretation of those prior results can be made in the context of the updated reference intervals. ALT 92(H) 0 - 50 U/L 03/06/2024 10:36 AM CDT LABORATORY Comment:Reference intervals for this test were updated on 03/24/2023 to more accurately reflect our healthy population. There may be differences in the flagging of prior results with similar values performed with this method. Interpretation of those prior results can be made in the context of the updated reference intervals. Protein Total 4.9(L) 6.4 - 8.3 g/dL 03/06/2024 10:36 AM CDT LABORATORY Albumin 2.7(L) 3.5 - 5.2 g/dL 03/06/2024 10:36 AM CDT RH LABORATORY Bilirubin Total 0.4 <=1.2 mg/dL 03/06/2024 10:36 AM CDT RH LABORATORY Blood VENOUS LINE / Unknown VAD(CVC, PICC) / Unknown 03/06/2024 10:05 AM CDT 03/06/2024 10:17 AM CDT Apple Burt DO LAB - BLOOD O RDERABLES LABORATORY [facility] Acute Care Lab [address] Lab (1st floor, no room number) [place] [address] * (ABNORMAL) Glucose by meter (03/06/2024 7:58 AM CDT) [facility] GLUCOSE BY METER POCT 120(H) 70 - 99 mg/dL 03/06/2024 8:04 AM CDT LABORATORY POC Blood, Capillary BLOOD SPECIMEN / Unknown 03/06/2024 7:58 AM CDT 03/06/2024 8:04 AM CDT Chago Vicente DO LAB - BEAKER POCT LABORATORY POC [facility] Care Lab [address] Lab (1st floor, no room number) [place] [address] * XR Chest Port 1 View (03/06/2024 5:12 AM CDT) Anatomical Region Laterality Modality Chest Digital Radiogra [...] EXAM: XR CHEST PORT 1 VIEW LOCATION: [facility] DATE: 03/06/2024 INDICATION: central line confirmation of placement COMPARISON: 03/06/2024 1:28 AM Procedure Note Jeremiah Crocker MD - 03/06/2024 EXAM: XR CHEST PORT 1 VIEW LOCATION: [facility] DATE: 03/06/2024 INDICATION: central line confirmation of placement COMPARISON: 03/06/2024 1:28 AM IMPRESSION: Interval placement of a right IJ central venous catheter whichcourses at least to the level of the superior cavoatrial junction but ispartially obscured by overlapping metallic spinal hardware. Otherwise nointerval change. Chago Velazquez MD IMG DIAGNOSTIC IMAGI NG ORDERABLES * EKG 12 lead (03/06/2024 4:53 AM CDT) Systolic Blood Pressure mmHg RADIOLOGY RESULTS Diastolic Blood Pressure mmHg RADIOLOGY RESULTS Ventricular Rate 101 BPM RAD IOLOGY RESULTS Atrial Rate 101 BPM RADIOLOG Y RESULTS IA Interval 144 ms RADIOLOG Y RESULTS QRS Duration 116 ms RADIOLO GY RESULTS QT 360 ms RADIOLOGY RESULTS QTc 466 ms RADIOLOGY RESULTS P [place] 70 degrees RADIOLOGY RESULTS R AXIS 60 degrees RADIOLOGY RESULTS T [place] 33 degrees RADIOLOGY RESULTS Interpretation ECG Sinus tachycardia Right bundle branch block Abnormal ECG When compared with ECG of 03-DEC-2013 08:21, Sinus rhythm has replaced Atrial fibrillation Vent. rate has decreased BY ??54 BPM Right bundle branch block is now Present Confirmed by - EMERGENCY ROOM, PHYSICIAN ([id number]), film editor THELMA QUINONES ([id number]) on 03/09/2024 7:49:22 AM RADIOLOGY RESULTS 03/06/2024 4:53 AM CDT 03/09/2024 7:49 AM CDT Chago Velazquez MD ECG ORDERABLES RADIOLOGY RESULTS * (ABNORMAL) Lactic acid whole blood (03/06/2024 3:13 AM CDT) Lactic Acid 2.1(H) 0.7 - 2.0 mmol/L 03/06/2024 3:18 AM CDT RH LABORATORY Blood BLOOD SPECIMEN / Unknown Venipuncture / Unknown 03/06/2024 3:13 AM CDT 03/06/2024 3:17 AM CDT Chago Velazquez MD LAB - BLOOD ORDERABL ES [facility] Acute Care Lab [address] [facility] Lab (1st floor, no room number) [place] [address], [facility] * (ABNORMAL) Urine Culture (03/06/2024 2:54 [...] coli Cefazolin DAWSON <=4 ug/mL: Susceptible Comment:Cefazolin AL C breakpoints are for the treatment of [...] coli Cefazolin DAWSON 8 ug/mL: Susceptible Comment:Cefazolin AL C breakpoints are for the treatment of [...] - MICRO GENERAL ORDERABLES [facility] LABORATORY [facility] Inf. Diseases Diag. Lab [address]], [address] [place] [address] * (ABNORMAL) UA with Microscopic (03/06/2024 2:54 AM CDT) Color Urine Yellow Colorless, Straw, Light Yellow, Yellow 03/06/2024 4:11 AM CDT LABORATORY Appearance Urine Cloudy(A) Clear 03/06/20 24 4:11 AM CDT LABORATORY Glucose Urine Negative Negative mg/dL 03/06/2024 4:11 AM CDT RH LABORATORY Bilirubin Urine Negative Negative 4:11 AM CDT RH LABORATORY Ketones Urine Negative Negative mg/dL 03/06/2024 4:11 AM CDT LABORATORY Specific [place] Urine 1.018 1.003 - 1.035 03/06/2024 4:11 AM CDT LABORATORY Blood Urine Small(A) Negative 03/06/2024 4:11 AM CDT LABORATORY pH Urine 5.5 5.0 - 7.0 03/06/2024 4:11 AM CDT LABORATORY Protein Albumin Urine 100(A) Negative mg/dL 03/06/2024 4:11 AM CDT [facility] Urobilinogen Urine Normal Normal, 2.0 mg/dL 03/06/2024 4:11 AM CDT [facility] Nitrite Urine Positive(A) Negative 03/06/2024 4:11 AM CDT [facility] Leukocyte Esterase Urine Large(A) Negative 03/06/2024 4:11 AM CDT [facility] Bacteria Urine Few(A) None Seen /HPF 03/06/2024 4:11 AM CDT [facility] WBC Clumps Urine Present(A) None Seen /HPF 03/06/2024 4:11 AM CDT [facility] Mucus Urine Present(A) None Seen /LPF [...] MD LAB - URINE ORDERABL ES LABORATORY [facility] Acute Care Lab [address] Lab (1st floor, no room number) [place] [address], [facility] * (ABNORMAL) Verigene GN Panel (03/06/2024 1:55 [...] - MICRO GENERAL ORDERABLES [facility] Inf. Diseases Diag. Lab [address][1], Room [place] [id number] * (ABNORMAL) Blood Culture Hand, Left (03/06/2024 1:55 AM CDT) Culture Positive on the 1st day of incubation(A) 03/08/2024 1:37 PM CDT [facility] Culture Escherichia coli(AA) 03/08/2024 1:37 PM CDT [facility] Comment: 1 of 2 bottles Susceptibilities done on previous cultures Blood STRUCTURE OF LEFT HAND / Unknown Venipuncture / Unknown 03/06/2024 1:55 AM CDT 03/06/2024 1:59 AM CDT Chago Velazquez MD LAB - MICRO GENERAL ORDERABLES Performing Organization Address [facility] Co de Phone Number [facility] Inf. Diseases Diag. Lab [address][1], Room [place] [id number] [address] * Symptomatic Influenza A/B, RSV, & SARS-CoV2 PCR (COVID-19) Nose (03/06/2024 1:45 AM CDT) Pathologist [facility] Influenza A PCR Negative Negative 03/06/2024 2:28 [...] the Xpert Xpress CoV2/Flu/RSV Assay on the [employer] Instrument. This test should be ordered for [...] management. This test was validated by the [facility]. These laboratories are certified under the Clinical Laboratory Improvement Amendments of 1988 (CLIA-88) as qualified to perform high complexity laboratory testing. Chago Velazquez MD LAB - MICRO GENERAL ORDERABLES [facility] [address] Lab (1st floor, no room number) [place] [address] * XR Chest Port 1 View (03/06/2024 1:33 AM CDT) Anatomical Region Laterality Modality Chest Digital Radiogra phy 03/06/2024 1:33 AM CDT Impressions 03/06/2024 1:36 AM CDT IMPRESSION: Mild cardiac enlargement. Normal pulmonary vascularity. Linear scarring right lung base. Marked vascular calcification. Postoperative changes thoracic and lumbar spine. Narrative 03/06/2024 1:36 AM CDT EXAM: XR CHEST PORT 1 VIEW LOCATION: [facility] DATE: 03/06/2024 INDICATION: Fever COMPARISON: 12/21/2013 Procedure Note Darryl Garcia MD - 03/06/2024 EXAM: XR CHEST PORT 1 VIEW LOCATION: [facility] DATE: 03/06/2024 INDICATION: Fever COMPARISON: 12/21/2013 IMPRESSION: Mild cardiac enlargement. Normal pulmonary vascularity. Linearscarring right lung base. Marked vascular calcification. Postoperativechanges thoracic and lumbar spine. Chago Velazquez MD IMG DIAGNOSTIC IMAGI NG ORDERABLES * (ABNORMAL) Blood Culture Peripheral Blood (03/06/2024 12:56 AM CDT) Culture Positive on the 1st day of incubation(A) 03/09/2024 8:17 AM CDT [facility] Culture Escherichia coli(AA) 03/09/2024 8:17 AM CDT [facility] Comment:2 of 2 bottles Culture Lactobacillus species(AA) 03/09/2024 8:17 AM CDT [facility] Comment:1 of 2 bottles Blood BLOOD SPECIMEN / Unknown Venipuncture / Unknown 03/06/2024 12:56 AM CDT 03/06/2024 1:02 AM CDT Narrative Organism Antibiotic Method Susceptibility Escherichia coli Ampicillin DAWSON 4 ug/mL: Susceptible Escherichia coli Ampicillin/ Sulbactam DAWSON <=2 ug/mL: Susceptible Escherichia coli Piperacillin/Tazobactam DAWSON <=4 ug/mL: Susceptible Escherichia coli Ceftazidime DAWSON <=1 ug/mL: Susceptible Escherichia coli Ceftriaxone DAWSON <=1 ug/mL: Susceptible Escherichia coli Cefepime DAWSON <=1 ug/mL: Susceptible Escherichia coli Meropenem DAWSON <=0.25 ug/mL: Susceptible Escherichia coli Gentamicin DAWSON <=1 ug/mL: Susceptible Escherichia coli Tobramycin DAWSON <=1 ug/mL: Susceptible Escherichia coli Ciprofloxacin DAWSON <=0.25 ug/mL: Susceptible Escherichia coli Levofloxacin DAWSON <=0.12 ug/mL: Susceptible Escherichia coli Trimethoprim/Sulfame thoxaz ole DAWSON <=1/19 ug/mL: Susceptible Lactobacillus species Ampicillin DAWSON 2 ug/mL: Susceptible Lactobacillus species Penicillin DAWSON 1 ug/mL: Susceptible Lactobacillus species Clindamycin DAWSON 0.016 ug/mL: Susceptible Lactobacillus species Gentamicin DAWSON 0.25 ug/mL: No interpretation available Lactobacillus species Levofloxacin DAWSON 0.75 ug/mL: No interpretation available Lactobacillus species Vancomycin DAWSON >256 ug/mL: Resistant Comment:Antibiotics listed a s No Interpretation have no regulatory guidelines for susceptibility/resistance available. Chago Velazquez MD LAB - MICRO GENERAL ORDERABLES [facility] Inf. Diseases Diag. Lab [address][1], [address] [place] [address] * (ABNORMAL) Procalcitonin (03/06/2024 12:52 AM CDT) [facility] Procalcitonin 2.44(H) <0.50 ng/mL 03/06/2024 1:41 AM [...] See Procalcitonin Guidance document for more details. [email or web address] Factors that may affect PCT levels (not [...] - BLOOD ORDERABL ES Performing Organization Address [facility]/ZIP Co de Phone Number [facility] [address] Lab (1st floor, no room number) [address] [place] [address] * Extra Red Top Tube (03/06/2024 12:52 AM CDT) Hold Specimen [facility] 03/06/2024 2:01 AM CDT [facility] Blood BLOOD SPECIMEN / Unknown Venipuncture / Unknown 03/06/2024 12:52 AM CDT 03/06/2024 12:59 AM CDT Chago Velazquez MD LAB - BLOOD ORDERABL ES Performing Organization Address [facility]/ZIP Co de Phone Number [facility] [address] Lab (1st floor, no room number) [address] * Extra Blue Top Tube (03/06/2024 12:52 AM CDT) Hold Specimen [facility] 03/06/2024 2:01 AM CDT [facility] Blood BLOOD SPECIMEN / Unknown Venipuncture / Unknown 03/06/2024 12:52 AM CDT 03/06/2024 12:59 AM CDT Chago Velazquez MD LAB - BLOOD ORDERABL ES Performing Organization Address City/[facility]/ZIP Co de Phone Number [facility] [address] Lab (1st floor, no room number) [address] * (ABNORMAL) CBC with platelets and [...] 0.5(H) <=0.4 10e3/uL 03/06/2024 1:01 AM CDT LABORATORY Absolute NRBCs 0.0 10e3/uL 03/06/2024 1:01 AM CDT [facility] Blood BLOOD SPECIMEN / Unknown Venipuncture / Unknown 03/06/2024 12:52 AM CDT 03/06/2024 12:59 AM CDT Chago Velazquez MD LAB - BLOOD ORDERABL ES Performing Organization Address [facility]/ZIP Co de Phone Number LABORATORY [facility] Lab [address] Lab (1st floor, no room number) [place] [phone] * (ABNORMAL) Lactic acid whole blood with 1x repeat in 2 hr when >2 (03/06/2024 12:52 AM CDT) Lactic Acid, Initial 4.4(HH) 0.7 - 2.0 mmol/L 03/06/2024 1:29 AM CDT LABORATORY Blood BLOOD SPECIMEN / Unknown Venipuncture / Unknown 03/06/2024 12:52 AM CDT 03/06/2024 12:59 AM CDT Chago Velazquez MD LAB - BLOOD ORDERABL ES Performing Organization Address [facility] Co de Phone Number LABORATORY [facility] Lab [address] Lab (1st floor, no room number) [place] [phone] [place] [address] * (ABNORMAL) Comprehensive metabolic panel (03/06/2024 12:52 AM CDT) Sodium 142 135 - 145 mmol/L 03/06/2024 1:17 AM CDT LABORATORY Comment:Reference intervals for this test were updated on 07/08/2023 to more accurately reflect our healthy population. There may be differences in the flagging of prior results with similar values performed with this method. Interpretation of those prior results can be made in the context of the updated reference intervals. Potassium 3.3(L) 3.4 - 5.3 mmol/L 03/06/2024 1:17 AM CDT [facility] Carbon Dioxide (CO2) 23 22 - 29 mmol/L 03/06/2024 1:17 AM CDT [facility] Anion Gap 16(H) 7 - 15 mmol/L 03/06/2024 1:17 AM CDT [facility] Urea Nitrogen 21.7 8.0 - 23.0 mg/dL 03/06/2024 1:17 AM CDT [facility] Creatinine 0.31(L) 0.51 - 0.95 mg/dL 03/06/2024 1:17 AM CDT [facility] GFR Estimate >90 >60 mL/min/1. 73m2 03/06/2024 1: AM CDT [facility] Calcium 8.4(L) 8.8 - 10.2 mg/dL 03/06/2024 1: AM CDT [facility] Chloride 103 98 - 107 mmol/L 03/06/2024 1: AM CDT [facility] Glucose 107(H) 70 - 99 mg/dL 03/06/2024 1: AM CDT [facility] Alkaline Phosphatase 361(H) 40 - 150 U/L 03/06/2024 1:17 AM CDT [facility] AST 77(H) 0 - 45 U/L 03/06/2024 1:17 AM CDT [facility] Comment:Reference intervals for this test were updated on 03/24/2023 to more accurately reflect our healthy population. There may be differences in the flagging of prior results with similar values performed with this method. Interpretation of those prior results can be made in the context of the updated reference intervals. ALT 46 0 - 50 U/L 03/06/2024 1:17 AM CDT [facility] Comment:Reference intervals for this test were updated on 03/24/2023 to more accurately reflect our healthy population. There may be differences in the flagging of prior results with similar values performed with this method. Interpretation of those prior results can be made in the context of the updated reference intervals. Protein Total 5.2(L) 6.4 - 8.3 g/dL 03/06/2024 1: AM CDT [facility] Albumin 3.0(L) 3.5 - 5.2 g/dL 03/06/2024 1:17 AM CDT [facility] Bilirubin Total 0.3 <=1.2 mg/dL 03/06/2024 1:17 AM CDT LABORATORY Blood BLOOD SPECIMEN / Unknown Venipuncture / Unknown 03/06/2024 12:52 AM CDT 03/06/2024 12:59 AM CDT Chago Velazquez MD LAB - BLOOD ORDERABL ES LABORATORY 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 Paraplegia (H) Paraplegia Pressure injury of coccygeal region, 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] Paraplegia (H) Paraplegia Elevated lactic acid level Other nonspecific abnormal serum enzyme levels Fever in adult Septic shock (H) Urinary tract infection without hematuria, site unspecified Pressure injury of skin, unspecified injury stage, unspecified location documented in this encounter Administered Medications Inactive Administered Medications - up to 3 most recent administrations Medication Order MAR Action Action Date Dose Rate Site acetaminophen (TYLENOL) tablet 1,000 mg 1,000 mg, Oral, ONCE, On 03/06/24 at 0110, For 1 dose, Maximum acetaminophen dose from all sources = 75 mg/kg/day not to exceed 4 gram $Given 03/06/2024 1:41 AM CDT 1,000 mg acetaminophen (TYLENOL) tablet 1,000 mg 1,000 mg, Oral, 2 TIMES DAILY PRN, mild pain, fever, Starting on 03/06/24 at 1336, DO NOT CRUSH. Maximum acetaminophen dose from all sources = 75 mg/kg/day not to exceed 4 gram $Given 03/14/2024 5:48 AM CDT 1,000 mg $Given 03/13/2024 8:28 AM CDT 1,000 mg $Given 03/12/2024 8:18 AM CDT 1,000 mg cefTRIAXone (ROCEPHIN) 1 g vial to attach to NS 100 mL bag for ADULTS or NS 50 mL bag for PEDS STAT, 1 g, Intravenous, ONCE, On 03/06/24 at 0425, For 1 dose, Indications: Pyelonephritis $New Bag 03/06/2024 4:56 AM CDT 1 g cefTRIAXone (ROCEPHIN) 2 g vial to attach to NS 100 ml bag for ADULTS or NS 50 ml bag for PEDS Routine, 2 g, Intravenous, EVERY 24 HOURS, First dose on 03/06/24 at 1600, Indications: Community Acquired Pneumonia $New Bag 03/14/2024 9:48 AM CDT 2 g $New Bag 03/13/2024 10:45 AM CDT 2 g $New Bag 03/12/2024 9:14 AM CDT 2 g cloNIDine (CATAPRES) tablet 0.1 mg 0.1 mg, Oral, 3 TIMES DAILY PRN, other, for systolic blood pressure >180, Starting on Fri03/10/24 at 1442 dextrose 5% infusion at 75 mL/hr, Intravenous, CONTINUOUS, Starting on Merry 03/11/24 at 1630, Until Fri03/12/24 at 0856 Rate/Dose Verify 03/12/2024 8:24 AM CDT 75 mL/hr $New Bag 03/12/2024 5:52 AM CDT 75 mL/hr Rate/Dose Verify 03/12/2024 1:00 AM CDT 75 mL/h r dextrose 50 % injection 25-50 mL 25-50 mL, Intravenous, EVERY 15 MIN PRN, low blood sugar, Administer over 1-5 Minutes, Starting on 03/06/24 at 0531, Use if have IV access, BG less than 70 mg/dL and meet dose criteria below: Dose if conscious and alert (or disorientated) and NPO = 25 mL Dose if unconscious / not alert = 50 mL Give first dose for initial blood glucose less than 70 mg/dL. If blood glucose at 15 minute recheck is less than or equal to 80 mg/dL continue to administer carbohydrate treatment every 15 minutes, as needed, based on blood glucose and assessment parameters until blood glucose level is above 80 mg/dL x 2 consecutive 15 minute checks. Vesicant. enoxaparin ANTICOAGULANT (LOVENOX) injection 40 mg 40 mg, Subcutaneous, EVERY 24 HOURS, First dose on 03/06/24 at 1200 $Given 03/14/2024 1:54 PM CDT 40 mg $Given 03/13/2024 12:20 PM CDT 40 mg $Given 03/12/2024 12:41 PM CDT 40 mg furosemide (LASIX) injection 40 mg 40 mg, Intravenous, ONCE, Administer over 1-3 Minutes, On 03/13/24 at 1230, For 1 dose $Given 03/13/2024 2:02 PM CDT 4 0 mg furosemide (LASIX) tablet 20 mg 20 mg, Oral, DAILY, First dose on 03/06/24 at 1400 $Given 03/14/2024 9:48 AM CDT 20 mg $Given 03/13/2024 8:27 AM CDT 20 mg $Given 03/12/2024 8:17 AM CDT 20 mg gabapentin (NEURONTIN) capsule 300 mg 300 mg, Oral, 3 TIMES DAILY, First dose on 03/06/24 at 1400 $Given 03/14/2024 9:48 AM CDT 300 mg $Given 03/12/2024 8:17 AM CDT 300 mg $Given 03/11/2024 8:23 AM CDT 300 mg glucagon injection 1 mg 1 mg, Subcutaneous, EVERY 15 MIN PRN, low blood sugar, May repeat x 1 only, Starting on 03/06/24 at 0531, May give SQ or IM. ONLY use glucagon IF patient has NO IV access AND is UNABLE to swallow AND blood glucose is LESS than or EQUAL to 50 mg/dL. glucose gel 15-30 g 15-30 g, Oral, EVERY 15 MIN PRN, low blood sugar, Starting on 03/06/24 at 0531, Give first dose for initial blood glucose less than 70 mg/dL per the dosing instructions below. If blood glucose at 15 minute rechecks is still less than or equal to 80 mg/dL, continue to administer doses per blood glucose parameters every 15 minutes, as needed, until blood glucose level is at or above 80 mg/dL x 2 consecutive 15 minute checks. Dosing Instructions: ~If patient is conscious and able to swallow and NO enteral tube For initial BG 51-69mg/dL OR 15 minute recheck BG 51- 80 mg/dL - give 15 g For BG less than or equal to 50 mg/dL - give 30 g ~ If Enteral tube For initial BG 51-69mg/dL OR 15 minute recheck BG 51- 80 mg/dL - give apple juice 120 mL (4 oz or 15 g of CHO) via enteral tube For BG less than or equal to 50 mg/dL - Give apple juice 240 mL (8 oz or 30 g of CHO) via enteral tube ~Oral gel is preferable for conscious and able to swallow patient. ~IF gel unavailable or patient refuses may provide apple juice per Enteral tube dosing instructions. Document juice on I and O flowsheet. hydrALAZINE (APRESOLINE) injection 10 mg 10 mg, Intravenous, EVERY 4 HOURS PRN, high blood pressure, SBP >180, Administer over 1 Minutes, Starting on 03/08/24 at 2359 $Given 03/10/2024 1:39 PM CDT 10 mg $Given 03/09/2024 8:13 AM CDT 10 mg hydrocortisone sodium succinate PF (solu-CORTEF) injection 50 mg 50 mg, Intravenous, EVERY 6 HOURS, Administer over 1-4 Minutes, First dose on 03/06/24 at 0600 $Given 03/10/2024 1:40 PM CDT 50 mg $Given 03/10/2024 6:31 AM CDT 50 mg $Given 03/10/2024 12:18 AM CDT 50 mg lactated ringers infusion at 75 mL/hr, Intravenous, CONTINUOUS, Starting on 03/06/24 at 0535, Until 03/06/24 at 1114 Rate/Dose Verify 03/06/2024 8:44 AM CDT 150 mL/hr $New Bag 03/06/2024 7:14 AM CDT 150 mL/hr meropenem (MERREM) 1 g vial to attach to NS 100 mL bag STAT, 1 g, Intravenous, EVERY 8 HOURS, First dose (after last modification) on 03/06/24 at 0630, Dose adjusted for indication: UTI, Indications: Urinary Tract Infection $New Bag 03/06/2024 7:19 AM CDT 1 g metoprolol succinate ER (TOPROL XL) 24 hr tablet 100 mg 100 mg, Oral, DAILY, First dose (after last modification) on 03/14/24 at 0900, DO NOT CRUSH. Tablet may be split in half along score line. Hold if sbp <100 or HR<60 $Given 03/14/2024 9:48 AM CDT 100 mg metoprolol succinate ER (TOPROL XL) 24 hr tablet 25 mg 25 mg, Oral, DAILY, First dose (after last modification) on 03/07/24 at 0900, DO NOT CRUSH. Tablet may be split in half along score line. Hold if sbp <100 or HR<60 $Given 03/07/2024 8:59 AM CDT 25 mg metoprolol succinate ER (TOPROL XL) 24 hr tablet 25 mg 25 mg, Oral, ONCE, On 03/07/24 at 1700, For 1 dose, DO NOT CRUSH. Tablet may be split in half along score line. $Given 03/07/2024 5:19 PM CDT 25 mg metoprolol succinate ER (TOPROL XL) 24 hr tablet 25 mg 25 mg, Oral, ONCE, On Fri03/12/24 at 0900, For 1 dose, DO NOT CRUSH. Tablet may be split in half along score line. $Given 03/12/2024 9:14 AM CDT 25 mg metoprolol succinate ER (TOPROL XL) 24 hr tablet 25 mg 25 mg, Oral, DAILY, First dose on 03/13/24 at 1230, For 1 dose, DO NOT CRUSH. Tablet may be split in half along score line. Given initial 25 mg for a total of 100 mg today $Given 03/13/2024 2:03 PM CDT 25 mg metoprolol succinate ER (TOPROL XL) 24 hr tablet 50 mg 50 mg, Oral, DAILY, First dose (after last modification) on 03/08/24 at 0900, DO NOT CRUSH. Tablet may be split in half along score line. Hold if sbp <100 or HR<60 $Given 03/12/2024 8:17 AM CDT 50 mg $Given 03/11/2024 8:22 AM CDT 50 mg $Given 03/10/2024 9:35 AM CDT 50 mg metoprolol succinate ER (TOPROL XL) 24 hr tablet 75 mg 75 mg, Oral, DAILY, First dose (after last modification) on 03/13/24 at 0900, DO NOT CRUSH. Tablet may be split in half along score line. Hold if sbp <100 or HR<60 $Given 03/13/2024 8:28 AM CDT 75 mg morphine (PF) injection 2 mg 2 mg, Intravenous, ONCE, On 03/06/24 at 0430, For 1 dose $Given 03/06/2024 4:33 AM CDT 2 mg naloxone (NARCAN) injection 0.2 mg 0.2 mg, Intravenous, EVERY 2 MIN PRN, opioid reversal, Starting on 03/06/24 at 1338, Administer intravenous route when available and notify provider when administered. For unintended sedation or respiratory depression if all of the below criteria are met: ~ respiratory rate LESS than or EQUAL to 8. ~SaO2 less than 92% and or/end-tidal CO2 is greater than 50. ~ the patient is receiving an opioid, has unintended sedations assessed as RASS (-3), and is currently not on mechanical ventilation. RASS scale moderate (-3) is movement or eye opening to voice but no eye contact. Patient Monitoring Once the patient has demonstrated a response to the naloxone, continue to monitor respiratory rate, depth, oxygen saturation and end-tidal CO2 (if available) every 15 minutes x 2, then every 30 minutes x 2, then every 1 hour x 1 after each naloxone dose. Consider transfer to ICU if patient respiratory parameters have not improved after 4 naloxone doses. naloxone (NARCAN) injection 0.2 mg 0.2 mg, Intramuscular, EVERY 2 MIN PRN, opioid reversal, Starting on 03/06/24 at 1338, Administer intramuscular if an intravenous route is not available and notify provider when administered. For unintended sedation or respiratory depression if all of the below criteria are met: ~ respiratory rate LESS than or EQUAL to 8. ~SaO2 less than 92% and or/end-tidal CO2 is greater than 50. ~ the patient is receiving an opioid, has unintended sedations assessed as RASS (-3), and is currently not on mechanical ventilation. RASS scale moderate (-3) is movement or eye opening to voice but no eye contact. Patient Monitoring Once the patient has demonstrated a response to the naloxone, continue to monitor respiratory rate, depth, oxygen saturation and end-tidal CO2 (if available) every 15 minutes x 2, then every 30 minutes x 2, then every 1 hour x 1 after each naloxone dose. Consider transfer to ICU if patient respiratory parameters have not improved after 4 naloxone doses. naloxone (NARCAN) injection 0.4 mg 0.4 mg, Intravenous, EVERY 2 MIN PRN, opioid reversal, Starting on 03/06/24 at 1338, Administer intravenous route when available and notify provider when administered. For unintended sedation or respiratory depression if all of the below criteria are met: ~ respiratory rate LESS than or EQUAL to 8. ~ SaO2 less than 92% and or/end-tidal CO2 is greater than 50. ~ the patient is receiving an opioid, has unintended sedation assessed as RASS (-4) or (-5) and patient is currently not on mechanical ventilation. RASS scale (-4) is deep sedation with no response to voice but movement or eye opening to physical stimulation. RASS scale (-5) is unarousable. Patient Monitoring Once the patient has demonstrated a response to the naloxone, continue to monitor respiratory rate, depth, oxygen saturation and end-tidal CO2 (if available) every 15 minutes x 2, then every 30 minutes x 2, then every 1 hour x 1 after each naloxone dose. Consider transfer to ICU if patient respiratory parameters have not improved after 4 naloxone doses. naloxone (NARCAN) injection 0.4 mg 0.4 mg, Intramuscular, EVERY 2 MIN PRN, opioid reversal, Starting on 03/06/24 at 1338, Administer intramuscular if an intravenous route is not available and notify provider when administered. For unintended sedation or respiratory depression if all of the below criteria are met: ~ respiratory rate LESS than or EQUAL to 8. ~ SaO2 less than 92% and or/end-tidal CO2 is greater than 50. ~ the patient is receiving an opioid, has unintended sedation assessed as RASS (-4) or (-5) and patient is currently not on mechanical ventilation. RASS scale (-4) is deep sedation with no response to voice but movement or eye opening to physical stimulation. RASS scale (-5) is unarousable. Patient Monitoring Once the patient has demonstrated a response to the naloxone, continue to monitor respiratory rate, depth, oxygen saturation and end-tidal CO2 (if available) every 15 minutes x 2, then every 30 minutes x 2, then every 1 hour x 1 after each naloxone dose. Consider transfer to ICU if patient respiratory parameters have not improved after 4 naloxone doses. norepinephrine (LEVOPHED) 0.016 mg/mL 4 mg in NS 250 mL infusion PREMIX Starting on 03/06/24 at 0442, For 1 dose, Julissa Merlos: cabinet override Vesicant. Recommend administration via a CENTRAL LINE. norepinephrine (LEVOPHED) 4 mg in NS 250 mL infusion PREMIX 0.01-0.6 mcg/kg/min ? 61.2 kg (2.295-137.7 mL/hr, rounded to 2.3-137.7 mL/hr), Intravenous, CONTINUOUS, Starting on 03/06/24 at 0425, Starting dose: 0.03 mcg/kg/min Adjustment increase/decrease: 0.01 to 0.05 mcg/kg/min Adjust every: 2 min Goal: MAP greater than 65mmHg Notify prescriber: if higher doses are required to achieve blood pressure goals. Vesicant. Recommend administration via a CENTRAL LINE. Rate/Dose Change 03/06/2024 1:54 PM CDT 0.01 mcg/kg/min 2.3 mL/hr Rate/Dose Change 03/06/2024 12:50 PM CDT 0.02 mcg/kg/min 4 .6 mL/hr Rate/Dose Change 03/06/2024 12:04 PM CDT 0.05 mcg/kg/min 1 1.5 mL/hr ondansetron (ZOFRAN ODT) ODT tab 4 mg 4 mg, Oral, EVERY 6 HOURS PRN, nausea, vomiting, Starting on 03/06/24 at 0531, This is Step 1 of nausea and vomiting management. If nausea not resolved in 15 minutes, go to Step 2 prochlorperazine (COMPAZINE). With dry hands, peel back foil backing and gently remove tablet. Do not push oral disintegrating tablet through foil backing. Administer immediately on tongue and oral disintegrating tablet dissolves in seconds, then swallow with saliva. Liquid not required. ondansetron (ZOFRAN) injection 4 mg 4 mg, Intravenous, EVERY 6 HOURS PRN, nausea, vomiting, Administer over 2-5 Minutes, Starting on 03/06/24 at 0531, Give IF patient unable to tolerate oral medication. This is Step 1 of nausea and vomiting management. If nausea not resolved in 15 minutes, go to Step 2 prochlorperazine (COMPAZINE). Irritant. oxyCODONE (ROXICODONE) tablet 5-10 mg 5-10 mg, Oral, ONCE, On 03/06/24 at 0210, For 1 dose $Given 03/06/2024 2:15 AM CDT 5 mg oxyCODONE IR (ROXICODONE) half-tab 7.5 mg 7.5 mg, Oral, EVERY 4 HOURS PRN, severe pain, Starting on 03/06/24 at 1337 $Given 03/14/2024 4:55 PM CDT 7.5 mg $Given 03/14/2024 10:53 AM CDT 7.5 mg $Given 03/14/2024 6:54 AM CDT 7.5 mg polyethylene glycol (MIRALAX) Packet 17 g 17 g, Oral, DAILY PRN, constipation, Starting on 03/06/24 at 0531, Give in 8oz of water, juice, or soda. Hold for loose stools. This is the second step of a three step constipation treatment. 1 Packet = 17 grams. Mix each gram with at least 1/2 ounce (15 mL) of water - 8 ounces for 17 g dose, 4 ounces for 8.5 g dose, 2 ounces for 4 g dose. Follow with the same volume of water. Hold for loose stools unless being administered as part of a bowel prep regimen or bowel clean out. $Given 03/12/2024 12:48 PM CDT 17 g $Given 03/09/2024 8:30 AM CDT 17 g potassium chloride 10 mEq in 100 mL sterile water infusion 10 mEq, Intravenous, Administer over 60 Minutes, at 100 mL/hr, EVERY HOUR, First dose on 03/06/24 at 0900, For 4 doses, Infuse via PERIPHERAL or CENTRAL LINE. Potassium level 3.1 - 3.4 mmol/L Administer 10 mEq potassium chloride IV x 4 doses and recheck potassium level 1-2 hours after last IV dose. Ordered from the Potassium replacement order set. $New Bag 03/06/2024 3:11 PM CDT 10 mEq 100 mL/hr $New Bag 03/06/2024 1:48 PM CDT 10 mEq 100 mL/hr $New Bag 03/06/2024 12:34 PM CDT 10 mEq 100 mL/hr potassium chloride telly ER (KLOR-CON M20) CR tablet 40 mEq 40 mEq, Oral, ONCE, On Merry 03/11/24 at 0800, For 1 dose, Potassium level 3.1 - 3.4 mmol/L Ordered from the Potassium replacement order set. DO NOT CRUSH, Potassium Replacement: Potassium level 3.1-3.4 mmol/L, Recheck: Potassium level 4 hours AFTER last oral dose $Given 03/11/2024 8:22 AM CDT 40 mEq predniSONE (DELTASONE) tablet 10 mg 10 mg, Oral, DAILY, First dose on Merry 03/11/24 at 0900 $Given 03/14/2024 9:48 AM CDT 10 mg $Given 03/13/2024 8:28 AM CDT 10 mg $Given 03/12/2024 8:17 AM CDT 10 mg prochlorperazine (COMPAZINE) injection 5 mg 5 mg, Intravenous, EVERY 6 HOURS PRN, nausea, vomiting, Administer over 1-2 Minutes, Starting on 03/06/24 at 0531, IF patient unable to tolerate oral medication. This is Step 2 of nausea and vomiting management. Give if nausea not resolved 15 minutes after giving ondansetron (ZOFRAN). prochlorperazine (COMPAZINE) suppository 12.5 mg 12.5 mg, Rectal, EVERY 12 HOURS PRN, nausea, vomiting, Starting on 03/06/24 at 0531, This is Step 2 of nausea and vomiting management. Give if nausea not resolved 15 minutes after giving ondansetron (ZOFRAN). prochlorperazine (COMPAZINE) tablet 5 mg 5 mg, Oral, EVERY 6 HOURS PRN, vomiting, Starting on 03/06/24 at 0531, This is Step 2 of nausea and vomiting management. Give if nausea not resolved 15 minutes after giving ondansetron (ZOFRAN). senna-docusate (SENOKOT-S/PERICOLACE) 8.6-50 MG per tablet 1 tablet 1 tablet, Oral, 2 TIMES DAILY PRN, constipation, Starting on 03/06/24 at 0531, If no bowel movement in 24 hours, increase to 2 tablets PO. Hold for loose stools. This is the first step of a three step constipation treatment. Hold for loose stools. $Given 03/12/2024 6:24 AM CDT 1 tablet senna-docusate (SENOKOT-S/PERICOLACE) 8.6-50 MG per tablet 2 tablet 2 tablet, Oral, 2 TIMES DAILY PRN, constipation, Starting on 03/06/24 at 0531, Hold for loose stools. This is the first step of a three step constipation treatment. Hold for loose stools. $Given 03/13/2024 8:28 AM CDT 2 tablets sodium chloride (PF) 0.9% PF flush 10-20 mL 10-20 mL, Intracatheter, EVERY 1 MIN PRN, line flush, Starting on 03/06/24 at 1224, Sodium chloride 0.9% 10 mL flush pre and post IV medications Sodium chloride 0.9% 20 mL flush pre and post blood draws or blood administration $Given 03/09/2024 11:15 AM CDT 10 mLs $Given 03/09/2024 8:17 AM CDT 10 mLs $Given 03/09/2024 6:21 AM CDT 20 mLs sodium chloride (PF) 0.9% PF flush 10-40 mL 10-40 mL, Intracatheter, EVERY 8 HOURS, First dose on 03/06/24 at 1230, Max dose: 10 mL for each lumen Administration instructions IF NOT DONE MORE FREQUENTLY $Given 03/14/2024 5:48 AM CDT 40 mLs $Given 03/13/2024 9:34 PM CDT 10 mLs $Given 03/13/2024 12:24 PM CDT 10 mLs sodium chloride 0.9% BOLUS 1,000 mL Intravenous, 1,000 mL, ONCE, at 1,000 mL/hr, Administer over 1 Hours, On 03/06/24 at 0110, For 1 dose $New Bag 03/06/2024 1:39 AM CDT 1,000 mLs 1000 mL/hr sodium chloride 0.9% BOLUS 1,000 mL Intravenous, 1,000 mL, ONCE, at 1,000 mL/hr, Administer over 1 Hours, On 03/06/24 at 0135, For 1 dose $New Bag 03/06/2024 1:41 AM CDT 1,000 mLs 1000 mL/hr sodium chloride 0.9% BOLUS 1,000 mL Intravenous, 1,000 mL, ONCE, at 1,000 mL/hr, Administer over 1 Hours, On 03/06/24 at 0425, For 1 dose $New Bag 03/06/2024 4:23 AM CDT 1,000 mLs 1000 mL/hr documented in this encounter Active and Recently Administered Medications Times are shown in CDT. Scheduled Medication Order 03/12/2024 03/13/2024 03/14/2024 cefTRIAXone (ROCEPHIN) 2 g vial to attach to NS 100 ml bag for ADULTS or NS 50 ml bag for PEDS Routine, 2 g, Intravenous, EVERY 24 HOURS, First dose on 03/06/24 at 1600, Indications: Community Acquired Pneumonia 0914 ($New Bag - Provider: Ezequiel Helton RN) 1045 ($New Bag - Provider: Ezequiel Helton RN) 0948 ($New Bag - Provider: Mary Lou Torres RN) enoxaparin ANTICOAGULANT (LOVENOX) injection 40 mg 40 mg, Subcutaneous, EVERY 24 HOURS, First dose on 03/06/24 at 1200 1241 ($Given - Provider: Ezequiel Helton RN) 1220 ($Given - Provider: Ezequiel Helton RN) 1354 ($Given - Provider: Mary Lou Torres RN) furosemide (LASIX) injection 40 mg (COMPLETED) 40 mg, Intravenous, ONCE, Administer over 1-3 Minutes, On 03/13/24 at 1230, For 1 dose 1402 ($Given - Provider: Ezequiel Helton RN) furosemide (LASIX) tablet 20 mg 20 mg, Oral, DAILY, First dose on 03/06/24 at 1400 0817 ($Given - Provider: Ezequiel Helton RN) 0827 ($Given - Provider: Ezequiel Helton RN) 0948 ($Given - Provider: Mary Lou Torres RN) gabapentin (NEURONTIN) capsule 300 mg 300 mg, Oral, 3 TIMES DAILY, First dose on 03/06/24 at 1400 0817 ($Given - Provider: Ezequiel Helton RN)1527 (Not Given - Provider: Kelsie Meyer RN - Reason: Patient/family refused)2330 (Not Given - Provider: Jaylan Sullivan RN - Reason: Patient/family refused) 0827 (Not Given - Provider: Ezequiel Helton RN - Reason: Patient/family refused)1501 (Not Given - Provider: Ezequiel Helton RN - Reason: Patient/family refused)2134 (Not Given - Provider: Chucky Bryan RN - Reason: Patient/family refused) 0948 ($Given - Provider: Mary Lou Torres RN)1600 (Canceled Entry - Provider: Orders Generic Provider - Comment: Automatically canceled at discontinue of medication order) metoprolol succinate ER (TOPROL XL) 24 hr tablet 100 mg 100 mg, Oral, DAILY, First dose (after last modification) on Fri03/14/24 at 0900, DO NOT CRUSH. Tablet may be split in half along score line. Hold if sbp <100 or HR<60 0948 ($Given - Provider: Mary Lou Torres RN) metoprolol succinate ER (TOPROL XL) 24 hr tablet 25 mg (COMPLETED) 25 mg, Oral, ONCE, On Fri03/12/24 at 0900, For 1 dose, DO NOT CRUSH. Tablet may be split in half along score line. 0914 ($Given - Provider: Ezequiel Helton RN) metoprolol succinate ER (TOPROL XL) 24 hr tablet 25 mg (COMPLETED) 25 mg, Oral, DAILY, First dose on 03/13/24 at 1230, For 1 dose, DO NOT CRUSH. Tablet may be split in half along score line. Given initial 25 mg for a total of 100 mg today 1403 ($Given - Provider: Ezequiel Helton RN) metoprolol succinate ER (TOPROL XL) 24 hr tablet 50 mg (CANCELED) 50 mg, Oral, DAILY, First dose (after last modification) on 03/08/24 at 0900, DO NOT CRUSH. Tablet may be split in half along score line. Hold if sbp <100 or HR<60 0817 ($Given - Provider: Ezequiel Helton RN) metoprolol succinate ER (TOPROL XL) 24 hr tablet 75 mg (CANCELED) 75 mg, Oral, DAILY, First dose (after last modification) on 03/13/24 at 0900, DO NOT CRUSH. Tablet may be split in half along score line. Hold if sbp <100 or HR<60 0828 ($Given - Provider: Ezequiel Helton RN) predniSONE (DELTASONE) tablet 10 mg 10 mg, Oral, DAILY, First dose on Merry 03/11/24 at 0900 0817 ($Given - Provider: Ezequiel Helton RN) 0828 ($Given - Provider: Ezequiel Helton RN) 0948 ($Given - Provider: Mary Lou Torres, MEME) sodium chloride (PF) 0.9% PF flush 10-40 mL 10-40 mL, Intracatheter, EVERY 8 HOURS, First dose on 03/06/24 at 1230, Max dose: 10 mL for each lumen Administration instructions IF NOT DONE MORE FREQUENTLY 0553 ($Given - Provider: Angelina Alvarado RN)1242 ($Given - Provider: Ezequiel Helton RN)2145 ($Given - Provider: Jaylan Sullivan RN) 0502 ($Given - Provider: Angelina Alvarado RN)1224 ($Given - Provider: Ezequiel Helton RN)2134 ($Given - Provider: Chucky Bryan RN) 0548 ($Given - Provider: Angelina Alvarado RN)1331 (Not Given - Provider: Mary Lou Torres RN - Reason: No IV Access) Continuous Medication Order 03/12/2024 03/13/2024 03/14/2024 dextrose 5% infusion (CANCELED) at 75 mL/hr, Intravenous, CONTINUOUS, Starting on Merry 03/11/24 at 1630, Until Fri03/12/24 at 0856 0100 (Rate/Dose Verify - Provider: Angelina Alvarado RN)0552 ($New Bag - Provider: Angelina Alvarado RN)0824 (Rate/Dose Verify - Provider: Ezequiel Helton RN)1219 (Stopped - Provider: Ezequiel Helton RN) PRN Medication Order 03/12/2024 03/13/2024 03/14/2024 acetaminophen (TYLENOL) tablet 1,000 mg 1,000 mg, Oral, 2 TIMES DAILY PRN, mild pain, fever, Starting on 03/06/24 at 1336, DO NOT CRUSH. Maximum acetaminophen dose from all sources = 75 mg/kg/day not to exceed 4 gram 0818 ($Given - Provider: Ezequiel Helton RN) 0828 ($Given - Provider: Ezequiel Helton RN) 0548 ($Given - Provider: Angelina Alvarado RN) bisacodyl (DULCOLAX) suppository 10 mg 10 mg, Rectal, DAILY PRN, constipation, Starting on 03/06/24 at 0531, Hold for loose stools. This is the third step of a three step constipation treatment. Hold for loose stools. cloNIDine (CATAPRES) tablet 0.1 mg 0.1 mg, Oral, 3 TIMES DAILY PRN, other, for systolic blood pressure >180, Starting on Fri03/10/24 at 1442 0224 (Not Given - Provider: Angelina Alvarado RN - Reason: Order parameters not met) dextrose 50 % injection 25-50 mL(Linked Group 1) 25-50 mL, Intravenous, EVERY 15 MIN PRN, low blood sugar, Administer over 1-5 Minutes, Starting on 03/06/24 at 0531, Use if have IV access, BG less than 70 mg/dL and meet dose criteria below: Dose if conscious and alert (or disorientated) and NPO = 25 mL Dose if unconscious / not alert = 50 mL Give first dose for initial blood glucose less than 70 mg/dL. If blood glucose at 15 minute recheck is less than or equal to 80 mg/dL continue to administer carbohydrate treatment every 15 minutes, as needed, based on blood glucose and assessment parameters until blood glucose level is above 80 mg/dL x 2 consecutive 15 minute checks. Vesicant. glucagon injection 1 mg(Linked Group 1) 1 mg, Subcutaneous, EVERY 15 MIN PRN, low blood sugar, May repeat x 1 only, Starting on 03/06/24 at 0531, May give SQ or IM. ONLY use glucagon IF patient has NO IV access AND is UNABLE to swallow AND blood glucose is LESS than or EQUAL to 50 mg/dL. glucose gel 15-30 g(Linked Group 1) 15-30 g, Oral, EVERY 15 MIN PRN, low blood sugar, Starting on 03/06/24 at 0531, Give first dose for initial blood glucose less than 70 mg/dL per the dosing instructions below. If blood glucose at 15 minute rechecks is still less than or equal to 80 mg/dL, continue to administer doses per blood glucose parameters every 15 minutes, as needed, until blood glucose level is at or above 80 mg/dL x 2 consecutive 15 minute checks. Dosing Instructions: ~If patient is conscious and able to swallow and NO enteral tube For initial BG 51-69mg/dL OR 15 minute recheck BG 51- 80 mg/dL - give 15 g For BG less than or equal to 50 mg/dL - give 30 g ~ If Enteral tube For initial BG 51-69mg/dL OR 15 minute recheck BG 51- 80 mg/dL - give apple juice 120 mL (4 oz or 15 g of CHO) via enteral tube For BG less than or equal to 50 mg/dL - Give apple juice 240 mL (8 oz or 30 g of CHO) via enteral tube ~Oral gel is preferable for conscious and able to swallow patient. ~IF gel unavailable or patient refuses may provide apple juice per Enteral tube dosing instructions. Document juice on I and O flowsheet. naloxone (NARCAN) injection 0.2 mg(Linked Group 2) 0.2 mg, Intravenous, EVERY 2 MIN PRN, opioid reversal, Starting on 03/06/24 at 1338, Administer intravenous route when available and notify provider when administered. For unintended sedation or respiratory depression if all of the below criteria are met: ~ respiratory rate LESS than or EQUAL to 8. ~SaO2 less than 92% and or/end-tidal CO2 is greater than 50. ~ the patient is receiving an opioid, has unintended sedations assessed as RASS (-3), and is currently not on mechanical ventilation. RASS scale moderate (-3) is movement or eye opening to voice but no eye contact. Patient Monitoring Once the patient has demonstrated a response to the naloxone, continue to monitor respiratory rate, depth, oxygen saturation and end-tidal CO2 (if available) every 15 minutes x 2, then every 30 minutes x 2, then every 1 hour x 1 after each naloxone dose. Consider transfer to ICU if patient respiratory parameters have not improved after 4 naloxone doses. naloxone (NARCAN) injection 0.2 mg(Linked Group 2) 0.2 mg, Intramuscular, EVERY 2 MIN PRN, opioid reversal, Starting on 03/06/24 at 1338, Administer intramuscular if an intravenous route is not available and notify provider when administered. For unintended sedation or respiratory depression if all of the below criteria are met: ~ respiratory rate LESS than or EQUAL to 8. ~SaO2 less than 92% and or/end-tidal CO2 is greater than 50. ~ the patient is receiving an opioid, has unintended sedations assessed as RASS (-3), and is currently not on mechanical ventilation. RASS scale moderate (-3) is movement or eye opening to voice but no eye contact. Patient Monitoring Once the patient has demonstrated a response to the naloxone, continue to monitor respiratory rate, depth, oxygen saturation and end-tidal CO2 (if available) every 15 minutes x 2, then every 30 minutes x 2, then every 1 hour x 1 after each naloxone dose. Consider transfer to ICU if patient respiratory parameters have not improved after 4 naloxone doses. naloxone (NARCAN) injection 0.4 mg(Linked Group 2) 0.4 mg, Intravenous, EVERY 2 MIN PRN, opioid reversal, Starting on 03/06/24 at 1338, Administer intravenous route when available and notify provider when administered. For unintended sedation or respiratory depression if all of the below criteria are met: ~ respiratory rate LESS than or EQUAL to 8. ~ SaO2 less than 92% and or/end-tidal CO2 is greater than 50. ~ the patient is receiving an opioid, has unintended sedation assessed as RASS (-4) or (-5) and patient is currently not on mechanical ventilation. RASS scale (-4) is deep sedation with no response to voice but movement or eye opening to physical stimulation. RASS scale (-5) is unarousable. Patient Monitoring Once the patient has demonstrated a response to the naloxone, continue to monitor respiratory rate, depth, oxygen saturation and end-tidal CO2 (if available) every 15 minutes x 2, then every 30 minutes x 2, then every 1 hour x 1 after each naloxone dose. Consider transfer to ICU if patient respiratory parameters have not improved after 4 naloxone doses. naloxone (NARCAN) injection 0.4 mg(Linked Group 2) 0.4 mg, Intramuscular, EVERY 2 MIN PRN, opioid reversal, Starting on 03/06/24 at 1338, Administer intramuscular if an intravenous route is not available and notify provider when administered. For unintended sedation or respiratory depression if all of the below criteria are met: ~ respiratory rate LESS than or EQUAL to 8. ~ SaO2 less than 92% and or/end-tidal CO2 is greater than 50. ~ the patient is receiving an opioid, has unintended sedation assessed as RASS (-4) or (-5) and patient is currently not on mechanical ventilation. RASS scale (-4) is deep sedation with no response to voice but movement or eye opening to physical stimulation. RASS scale (-5) is unarousable. Patient Monitoring Once the patient has demonstrated a response to the naloxone, continue to monitor respiratory rate, depth, oxygen saturation and end-tidal CO2 (if available) every 15 minutes x 2, then every 30 minutes x 2, then every 1 hour x 1 after each naloxone dose. Consider transfer to ICU if patient respiratory parameters have not improved after 4 naloxone doses. ondansetron (ZOFRAN ODT) ODT tab 4 mg(Linked Group 3) 4 mg, Oral, EVERY 6 HOURS PRN, nausea, vomiting, Starting on 03/06/24 at 0531, This is Step 1 of nausea and vomiting management. If nausea not resolved in 15 minutes, go to Step 2 prochlorperazine (COMPAZINE). With dry hands, peel back foil backing and gently remove tablet. Do not push oral disintegrating tablet through foil backing. Administer immediately on tongue and oral disintegrating tablet dissolves in seconds, then swallow with saliva. Liquid not required. ondansetron (ZOFRAN) injection 4 mg(Linked Group 3) 4 mg, Intravenous, EVERY 6 HOURS PRN, nausea, vomiting, Administer over 2-5 Minutes, Starting on 03/06/24 at 0531, Give IF patient unable to tolerate oral medication. This is Step 1 of nausea and vomiting management. If nausea not resolved in 15 minutes, go to Step 2 prochlorperazine (COMPAZINE). Irritant. oxyCODONE IR (ROXICODONE) half-tab 7.5 mg 7.5 mg, Oral, EVERY 4 HOURS PRN, severe pain, Starting on 03/06/24 at 1337 0223 ($Given - Provider: Angelina Alvarado RN)0624 ($Given - Provider: Angelina Alvarado RN)1039 ($Given - Provider: Ezequiel Helton RN)1527 ($Given - Provider: Kelsie Meyer RN)1945 ($Given - Provider: Jaylan Sullivan RN) 0008 ($Given - Provider: Angelina Alvarado RN)0447 ($Given - Provider: Angelina Alvarado RN)1045 ($Given - Provider: Ezequiel Helton RN)1502 ($Given - Provider: Ezequiel Helton RN)1908 ($Given - Provider: Chucky Bryan RN)2248 ($Given - Provider: Chucky Bryan, MEME) 0248 ($Given - Provider: Angelina Alvarado, RN)0654 ($Given - Provider: Angelina Alvarado, MEME)1053 ($Given - Provider: Mary Lou Torres, MEME)1655 ($Given - Provider: Chucky Bryan, MEME) polyethylene glycol (MIRALAX) Packet 17 g 17 g, Oral, DAILY PRN, constipation, Starting on 03/06/24 at 0531, Give in 8oz of water, juice, or soda. Hold for loose stools. This is the second step of a three step constipation treatment. 1 Packet = 17 grams. Mix each gram with at least 1/2 ounce (15 mL) of water - 8 ounces for 17 g dose, 4 ounces for 8.5 g dose, 2 ounces for 4 g dose. Follow with the same volume of water. Hold for loose stools unless being administered as part of a bowel prep regimen or bowel clean out. 1248 ($Given - Provider: Ezequiel Helton RN) prochlorperazine (COMPAZINE) injection 5 mg(Linked Group 4) 5 mg, Intravenous, EVERY 6 HOURS PRN, nausea, vomiting, Administer over 1-2 Minutes, Starting on 03/06/24 at 0531, IF patient unable to tolerate oral medication. This is Step 2 of nausea and vomiting management. Give if nausea not resolved 15 minutes after giving ondansetron (ZOFRAN). prochlorperazine (COMPAZINE) suppository 12.5 mg(Linked Group 4) 12.5 mg, Rectal, EVERY 12 HOURS PRN, nausea, vomiting, Starting on 03/06/24 at 0531, This is Step 2 of nausea and vomiting management. Give if nausea not resolved 15 minutes after giving ondansetron (ZOFRAN). prochlorperazine (COMPAZINE) tablet 5 mg(Linked Group 4) 5 mg, Oral, EVERY 6 HOURS PRN, vomiting, Starting on 03/06/24 at 0531, This is Step 2 of nausea and vomiting management. Give if nausea not resolved 15 minutes after giving ondansetron (ZOFRAN). senna-docusate (SENOKOT-S/PERICOLACE) 8.6-50 MG per tablet 1 tablet(Linked Group 5) 1 tablet, Oral, 2 TIMES DAILY PRN, constipation, Starting on 03/06/24 at 0531, If no bowel movement in 24 hours, increase to 2 tablets PO. Hold for loose stools. This is the first step of a three step constipation treatment. Hold for loose stools. 0624 ($Given - Provider: Angelina Alvarado RN) 0828 (See Alternative - Provider: Ezequiel Helton RN) senna-docusate (SENOKOT-S/PERICOLACE) 8.6-50 MG per tablet 2 tablet(Linked Group 5) 2 tablet, Oral, 2 TIMES DAILY PRN, constipation, Starting on 03/06/24 at 0531, Hold for loose stools. This is the first step of a three step constipation treatment. Hold for loose stools. 0624 (See Alternative - Provider: Angelina Alvarado RN) 0828 ($Given - Provider: Ezequiel Helton RN) sodium chloride (PF) 0.9% PF flush 10-20 mL 10-20 mL, Intracatheter, EVERY 1 MIN PRN, line flush, Starting on 03/06/24 at 1224, Sodium chloride 0.9% 10 mL flush pre and post IV medications Sodium chloride 0.9% 20 mL flush pre and post blood draws or blood administration Linked Groups Order Group 1: glucose gel 15-30 gJump to med 15-30 g, Oral, EVERY 15 MIN PRN, low blood sugar, Starting on 03/06/24 at 0531, Give first dose for initial blood glucose less than 70 mg/dL per the dosing instructions below. If blood glucose at 15 minute rechecks is still less than or equal to 80 mg/dL, continue to administer doses per blood glucose parameters every 15 minutes, as needed, until blood glucose level is at or above 80 mg/dL x 2 consecutive 15 minute checks. Dosing Instructions: ~If patient is conscious and able to swallow and NO enteral tube For initial BG 51-69mg/dL OR 15 minute recheck BG 51- 80 mg/dL - give 15 g For BG less than or equal to 50 mg/dL - give 30 g ~ If Enteral tube For initial BG 51-69mg/dL OR 15 minute recheck BG 51- 80 mg/dL - give apple juice 120 mL (4 oz or 15 g of CHO) via enteral tube For BG less than or equal to 50 mg/dL - Give apple juice 240 mL (8 oz or 30 g of CHO) via enteral tube ~Oral gel is preferable for conscious and able to swallow patient. ~IF gel unavailable or patient refuses may provide apple juice per Enteral tube dosing instructions. Document juice on I and O flowsheet. Or dextrose 50 % injection 25-50 mLJump to med 25-50 mL, Intravenous, EVERY 15 MIN PRN, low blood sugar, Administer over 1-5 Minutes, Starting on 03/06/24 at 0531, Use if have IV access, BG less than 70 mg/dL and meet dose criteria below: Dose if conscious and alert (or disorientated) and NPO = 25 mL Dose if unconscious / not alert = 50 mL Give first dose for initial blood glucose less than 70 mg/dL. If blood glucose at 15 minute recheck is less than or equal to 80 mg/dL continue to administer carbohydrate treatment every 15 minutes, as needed, based on blood glucose and assessment parameters until blood glucose level is above 80 mg/dL x 2 consecutive 15 minute checks. Vesicant. Or glucagon injection 1 mgJump to med 1 mg, Subcutaneous, EVERY 15 MIN PRN, low blood sugar, May repeat x 1 only, Starting on 03/06/24 at 0531, May give SQ or IM. ONLY use glucagon IF patient has NO IV access AND is UNABLE to swallow AND blood glucose is LESS than or EQUAL to 50 mg/dL. Group 2: naloxone (NARCAN) injection 0.2 mgJump to med 0.2 mg, Intravenous, EVERY 2 MIN PRN, opioid reversal, Starting on 03/06/24 at 1338, Administer intravenous route when available and notify provider when administered. For unintended sedation or respiratory depression if all of the below criteria are met: ~ respiratory rate LESS than or EQUAL to 8. ~SaO2 less than 92% and or/end-tidal CO2 is greater than 50. ~ the patient is receiving an opioid, has unintended sedations assessed as RASS (-3), and is currently not on mechanical ventilation. RASS scale moderate (-3) is movement or eye opening to voice but no eye contact. Patient Monitoring Once the patient has demonstrated a response to the naloxone, continue to monitor respiratory rate, depth, oxygen saturation and end-tidal CO2 (if available) every 15 minutes x 2, then every 30 minutes x 2, then every 1 hour x 1 after each naloxone dose. Consider transfer to ICU if patient respiratory parameters have not improved after 4 naloxone doses. Or naloxone (NARCAN) injection 0.4 mgJump to med 0.4 mg, Intravenous, EVERY 2 MIN PRN, opioid reversal, Starting on 03/06/24 at 1338, Administer intravenous route when available and notify provider when administered. For unintended sedation or respiratory depression if all of the below criteria are met: ~ respiratory rate LESS than or EQUAL to 8. ~ SaO2 less than 92% and or/end-tidal CO2 is greater than 50. ~ the patient is receiving an opioid, has unintended sedation assessed as RASS (-4) or (-5) and patient is currently not on mechanical ventilation. RASS scale (-4) is deep sedation with no response to voice but movement or eye opening to physical stimulation. RASS scale (-5) is unarousable. Patient Monitoring Once the patient has demonstrated a response to the naloxone, continue to monitor respiratory rate, depth, oxygen saturation and end-tidal CO2 (if available) every 15 minutes x 2, then every 30 minutes x 2, then every 1 hour x 1 after each naloxone dose. Consider transfer to ICU if patient respiratory parameters have not improved after 4 naloxone doses. Or naloxone (NARCAN) injection 0.2 mgJump to med 0.2 mg, Intramuscular, EVERY 2 MIN PRN, opioid reversal, Starting on 03/06/24 at 1338, Administer intramuscular if an intravenous route is not available and notify provider when administered. For unintended sedation or respiratory depression if all of the below criteria are met: ~ respiratory rate LESS than or EQUAL to 8. ~SaO2 less than 92% and or/end-tidal CO2 is greater than 50. ~ the patient is receiving an opioid, has unintended sedations assessed as RASS (-3), and is currently not on mechanical ventilation. RASS scale moderate (-3) is movement or eye opening to voice but no eye contact. Patient Monitoring Once the patient has demonstrated a response to the naloxone, continue to monitor respiratory rate, depth, oxygen saturation and end-tidal CO2 (if available) every 15 minutes x 2, then every 30 minutes x 2, then every 1 hour x 1 after each naloxone dose. Consider transfer to ICU if patient respiratory parameters have not improved after 4 naloxone doses. Or naloxone (NARCAN) injection 0.4 mgJump to med 0.4 mg, Intramuscular, EVERY 2 MIN PRN, opioid reversal, Starting on 03/06/24 at 1338, Administer intramuscular if an intravenous route is not available and notify provider when administered. For unintended sedation or respiratory depression if all of the below criteria are met: ~ respiratory rate LESS than or EQUAL to 8. ~ SaO2 less than 92% and or/end-tidal CO2 is greater than 50. ~ the patient is receiving an opioid, has unintended sedation assessed as RASS (-4) or (-5) and patient is currently not on mechanical ventilation. RASS scale (-4) is deep sedation with no response to voice but movement or eye opening to physical stimulation. RASS scale (-5) is unarousable. Patient Monitoring Once the patient has demonstrated a response to the naloxone, continue to monitor respiratory rate, depth, oxygen saturation and end-tidal CO2 (if available) every 15 minutes x 2, then every 30 minutes x 2, then every 1 hour x 1 after each naloxone dose. Consider transfer to ICU if patient respiratory parameters have not improved after 4 naloxone doses. Group 3: ondansetron (ZOFRAN ODT) ODT tab 4 mgJump to med 4 mg, Oral, EVERY 6 HOURS PRN, nausea, vomiting, Starting on 03/06/24 at 0531, This is Step 1 of nausea and vomiting management. If nausea not resolved in 15 minutes, go to Step 2 prochlorperazine (COMPAZINE). With dry hands, peel back foil backing and gently remove tablet. Do not push oral disintegrating tablet through foil backing. Administer immediately on tongue and oral disintegrating tablet dissolves in seconds, then swallow with saliva. Liquid not required. Or ondansetron (ZOFRAN) injection 4 mgJump to med 4 mg, Intravenous, EVERY 6 HOURS PRN, nausea, vomiting, Administer over 2-5 Minutes, Starting on 03/06/24 at 0531, Give IF patient unable to tolerate oral medication. This is Step 1 of nausea and vomiting management. If nausea not resolved in 15 minutes, go to Step 2 prochlorperazine (COMPAZINE). Irritant. Group 4: prochlorperazine (COMPAZINE) injection 5 mgJump to med 5 mg, Intravenous, EVERY 6 HOURS PRN, nausea, vomiting, Administer over 1-2 Minutes, Starting on 03/06/24 at 0531, IF patient unable to tolerate oral medication. This is Step 2 of nausea and vomiting management. Give if nausea not resolved 15 minutes after giving ondansetron (ZOFRAN). Or prochlorperazine (COMPAZINE) tablet 5 mgJump to med 5 mg, Oral, EVERY 6 HOURS PRN, vomiting, Starting on 03/06/24 at 0531, This is Step 2 of nausea and vomiting management. Give if nausea not resolved 15 minutes after giving ondansetron (ZOFRAN). Or prochlorperazine (COMPAZINE) suppository 12.5 mgJump to med 12.5 mg, Rectal, EVERY 12 HOURS PRN, nausea, vomiting, Starting on 03/06/24 at 0531, This is Step 2 of nausea and vomiting management. Give if nausea not resolved 15 minutes after giving ondansetron (ZOFRAN). Group 5: senna-docusate (SENOKOT-S/PERICOLACE) 8.6-50 MG per tablet 1 tabletJump to med 1 tablet, Oral, 2 TIMES DAILY PRN, constipation, Starting on 03/06/24 at 0531, If no bowel movement in 24 hours, increase to 2 tablets PO. Hold for loose stools. This is the first step of a three step constipation treatment. Hold for loose stools. Or senna-docusate (SENOKOT-S/PERICOLACE) 8.6-50 MG per tablet 2 tabletJump to med 2 tablet, Oral, 2 TIMES DAILY PRN, constipation, Starting on 03/06/24 at 0531, Hold for loose stools. This is the first step of a three step constipation treatment. Hold for loose stools. 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
--- OUTSIDE RECORDS SUMMARY | 2024-03-18 12:16 | XMS_ITS | Encounter Summary ---
Author Organization [place] Address [facility] [place] [address] Care Team Providers Care Mission Worker Name Role Phone [facility]- Primary Care Provider Encounter Details Date Type Department Care Team (Latest Contact Info) Description 03/06/2024 Travel Social History Tobacco Use Types Packs/Day Years [...] Infection Onset Date Last Indicated Resolved Time Rule Out COVID-19 03/06/2024 03/06/2024 03/06/2024 2:28 AM CDT documented as of this encounter Care Teams Mission Worker Relationship Specialty Start Date End Date [facility]- [address] [place] [address] PCP - General 03/06/24 03/08/24 documented as of this encounter
--- OUTSIDE RECORDS SUMMARY | 2024-03-18 12:16 | XMS_ITS | Clinical Summary ---
Author Organization [facility] Address [address], [place] [address] Care Team Providers Care Livestock Buyer Name Role Phone Flo Mckeon MD Primary Care Provider + [phone] Source Comments You are receiving this document as you are listed as the primary care provider,follow-up provider, or the patient has been referred to you for consultation.This is in compliance with the Medicare and[facility] Cent[facility]aid EHR Incentive Program,which states Providers who transition their patient to another setting of careor provider of care or refers their patient to another provider of care shouldprovide summary care record for each transition of care or referral. [place] Medications Medication Sig Dispensed Refills Start Date End Date Status acetaminophen (TYLENOL ARTHRITIS) 650 MG controlled release tablet as needed Active furosemide (LASIX) 20 MG tablet Daily 06/11/2021 Active diphenhydrAMINE-APAP 25-500 MG tablet Bedtime as needed A ctive predniSONE (DELTASONE) 5 MG tablet 10 mg daily. 06/11/2021 Active aspirin EC 81 MG enteric coated tablet Daily Act job pseudoephedrine ([id number]) 120 MG 12 hour release tablet Daily [...] Vaccine (1 - 2022- season) 2023 Influenza (Season Ended) 2024 07/18/2009, [...] Negative (Non Reactive) 06/28/2021 7:52 PM CDT [facility] Comment:Antibodies to HCV no t detected. Does not exclude the possiblity of exposure to HCV. Blood Venipuncture / Unknown 06/28/2021 2:27 PM CDT 06/28/2021 2:28 PM CDT Lorenza Q Black DO LAB_1 [facility] [address] from Last 3 Months or Most Recently Relevant to Health Maintenance Care Teams Livestock Buyer Relationship Specialty Start Date End Date Flo Mckeon MD [address] [place] [address] PCP - General 06/21/21
== END 2024-03-05 08:16 | disposition home or self-care (01) ==
LOC: WOUND 03-18 12:12
PROVIDERS: PCP Family Medicine; Visit Provider Physician Assistant
DX: M86.68 Other chronic osteomyelitis, other site (principal); L89.314 Pressure ulcer of right buttock, stage 4; L89.150 Pressure ulcer of sacral region, unstageable; L89.896 Pressure-induced deep tissue damage of other site; L97.528 Non-pressure chronic ulcer of other part of left foot with other specified severity; G82.20 Paraplegia, unspecified; Z99.3 Dependence on wheelchair
CPT/HCPCS: 97597

== ENCOUNTER 2024-03-19 08:11 | Outpatient (CLI) | payer MEDICARE, SELFPAY | END 2024-03-19 08:12 | disposition home or self-care (01) | LOC: WOUND 08:11 | PROVIDERS: PCP Family Medicine; Visit Provider Nurse Practitioner Family | DX: M86.68 Other chronic osteomyelitis, other site (principal); L89.314 Pressure ulcer of right buttock, stage 4; L89.150 Pressure ulcer of sacral region, unstageable; L89.896 Pressure-induced deep tissue damage of other site; G82.20 Paraplegia, unspecified; Z99.3 Dependence on wheelchair | CPT/HCPCS: 11042; 97605; G0463 ==

== ENCOUNTER 2024-03-21 19:30 | Inpatient (IN) | payer MEDICARE, SELFPAY ==
[2024-03-21] VITALS (16 sets, daily range): BP systolic 73–105; BP diastolic 42–53; PULSE 85–93; RESP 20; TEMP 37; O2SAT 92–97; BMI 26.6
--- NOTE | 2024-03-21 19:51 | CRLHL7_ITS ---
For Patients: As a result of the Century Cures Act, medical imaging exams and procedure reports are released immediately into your electronic medical record. You may view this report before your referring provider. If you have questions, please contact your health care provider. INDICATION: Chills. TECHNIQUE: Chest 1 view. COMPARISON: 12/09/2023. FINDINGS: Cardiovascular and mediastinum: Heart size and vasculature are normal in caliber and appearance. Interval removal of the right PICC line. Lungs and pleural spaces: Unchanged low lung volumes with perihilar bronchovascular crowding and atelectasis. No acute consolidation, pleural effusion, pneumothorax. Bones and soft tissues: Similar-appearing spinal stabilization hardware. No acute findings. IMPRESSION: No evidence of an acute pulmonary process. Dictated by Santy Espinoza MD @ 03/21/2024 8:58:05 PM (Electronically Signed)
--- NOTE | 2024-03-21 19:53 | ED_ITS ---
HPI - General Adult General Chief complaint: Hypotension Stated complaint: Sepsis Time Seen by Provider: 03/21/24 19:33 History of Present Illness HPI narrative: Patient is a 78 year white female who is paraplegic who has a history of transverse myelitis about in her midthoracic area and has had pain sensation in her lower extremities but does not have normal sensation. She was hospitalized last week at [facility] due to the septic shock secondary to E coli UTI bacteremia. She has been on Levaquin. She typically sees Dr. Anguiano. She typically comes to the [facility]. 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 She has chronic atrial fibrillation peripheral edema hypertension and she actually got started on an increased dose of metoprolol at her last stay as her blood pressure was high. Here blood pressures bins 80-85 systolic. She started feeling some chills today. She states she gets septic easily and ?wanted to get ahead of it?. She is mentating well does not feel ill otherwise. She has a chronic indwelling Cristobal catheter. And she has the wound pump in place as well. Shows is on chronic pain medicines. She reiterates to me that she is DNR DNI by her request. If possible she would like to stay at the [facility]. The patient is also on chronic prednisone due to rheumatoid arthritis. She has been on Levaquin since discharge from the hospital the patient has also had MRSA positivity in the past. She had E coli bacteremia Related Data Previous Rx's ?Medication ?Instructions ?Recorded Lactobacillus acidophilus 0.5 mg 50 mmu cells PO TID #90 tabs 12/13/23 (100 million cell) tablet acetaminophen 500 mg capsule 1,000 mg (2 x 500 mg) PO TID PRN 12/13/23 #100 caps ascorbic acid (vitamin C) 500 mg 500 mg PO DAILY #30 tabs 12/13/23 tablet (Vitamin C) bisacodyl 10 mg rectal suppository 10 mg UT DAILY PRN constipation 12/13/23 #30 ea furosemide 40 mg tablet 40 mg PO QAM #30 tabs 12/13/23 gabapentin 300 mg capsule 300 mg PO TID #90 caps 12/13/23 loperamide 2 mg capsule 2 mg PO TID PRN loose stool #30 12/13/23 caps metoprolol succinate 50 mg capsule 50 mg PO DAILY #30 ea 12/13/23 sprinkle, ext. release 24 hr miconazole nitrate 2 % topical 1 applic topical BID PRN #85 grams 12/13/23 powder multivitamin 1 tab PO DAILY #100 tabs 12/13/23 potassium chloride 10 mEq 20 meq (2 x 10 mEq) PO BID #120 12/13/23 tablet,extended release tabs prednisone 5 mg tablet 10 mg (2 x 5 mg) PO DAILY #60 tabs 12/13/23 zinc sulfate 50 mg zinc (220 mg) 50 mg PO DAILY #30 caps 12/13/23 capsule cephalexin 500 mg capsule 1,000 mg (2 x 500 mg) PO BID #12 01/23/24 caps emollient (Vanicream topical) 10 applic topical BID #60 grams 01/23/24 triamcinolone acetonide 0.1 % 1 applic topical BID #60 grams 01/23/24 topical cream oxycodone 5 mg tablet 7.5 mg (1.5 x 5 mg) PO Q4H PRN 03/03/24 pain #180 tabs Allergies Allergy/AdvReac Type Severity Reaction Status Date / Time piperacillin Allergy Intermediate Rash Verified 01/16/24 05:11 sulfamethoxazole Allergy Intermediate Hives Verified 01/23/24 10:48 [From Bactrim] tazobactam Allergy Intermediate Rash Verified 01/16/24 05:11 trimethoprim [From Bactrim] Allergy Intermediate Hives Verified 01/23/24 10:48 vancomycin Allergy Unknown Anaphylactic Verified 01/16/24 05:11 shock with this medication. 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 Review of Systems Status of ROS: Reports: 6 or more systems reviewed and unremarkable except as noted in History and below [facility] Medical History (Updated 03/21/24 @ 20:44 by Melvi Bear MD) Pressure ulcer ?L89.90 - Pressure ulcer of unspecified site, unspecified stage (ICD-10) Osteomyelitis ?M86.9 - Osteomyelitis, unspecified (ICD-10) Anemia ?D64.9 - Anemia, unspecified (ICD-10) Diarrhea ?R19.7 - Diarrhea, unspecified (ICD-10) Intravenous infiltration ?T80.1XXA - Vascular complications following infusion, transfusion and therapeutic injection, initial encounter (ICD-10) Neurogenic bladder ?N31.9 - Neuromuscular dysfunction of bladder, unspecified (ICD-10) Chronic, continuous use of opioids ?F11.90 - Opioid use, unspecified, uncomplicated (ICD-10) 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, stage 4 ?L89.44 - Pressure ulcer of contiguous site of back, buttock and hip, stage 4 (ICD-10) Rheumatoid arthritis ?M06.9 - Rheumatoid arthritis, unspecified (ICD-10) HTN (hypertension) ?I10 - Essential (primary) hypertension (ICD-10) Cristobal catheter in place ?Z97.8 - Presence of other specified devices (ICD-10) Sleep apnea ?G47.30 - Sleep apnea, unspecified (ICD-10) Paraplegia ?G82.20 - Paraplegia, unspecified (ICD-10) Acute on chronic anemia ?D64.9 - Anemia, unspecified (ICD-10) Paraplegia ?G82.20 - Paraplegia, unspecified (ICD-10) Chronic pain ?G89.29 - Other chronic pain (ICD-10) Tubular adenoma of colon ?D12.6 - Benign neoplasm of colon, unspecified (ICD-10) 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 - Acute transverse myelitis in demyelinating disease of central nervous system (ICD-10) Septic shock ?A41.9 - Sepsis, unspecified organism (ICD-10) ?R65.21 - Severe sepsis with septic shock (ICD-10) Recurrent urinary tract infection ?N39.0 - Urinary tract infection, site not specified (ICD-10) Osteoporosis ?M81.0 - Age-related osteoporosis without current pathological fracture (ICD- 10) History of methicillin resistant Staphylococcus aureus infection ?Z86.14 - Personal history of Methicillin resistant Staphylococcus aureus infection (ICD-10) Surgical History Status post debridement ?Z98.890 - Other specified postprocedural states (ICD-10) Social History Narrative: Mary has recently been living at [facility], daughter Elvi (MDM if needed) is hoping to bring her home with time motion analyst caregiving. has cognitive impairment. At this time (12/08/23), she is requesting DNR/DNI status. Nonsmoker, no ETOH use. What is your current living situation?: I presently have a place to live Problems where you live: no known problems Problems where you live details: N/A In the past 12 months, utilities in danger of being shut off: no In past 12 months, lack of transportation kept you from medical appts, meetings, work, or getting things needed for daily living: no In the past 12 mos, have been you worried that your food would run out before you had money to buy more?: never true In the past 12 mos, the food you bought just didn't last and you didn't have money to buy more?: never true Highest level of school completed/degree received: Bachelor's degree Smoking Status: Never smoker Do you use any of these nicotine containing products: None Second hand tobacco smoke exposure: No How often do you have a drink containing alcohol: never How often do you have six or more drinks on one occasion: Never AUDIT-C Alcohol total score: 0 Non-prescribed substance use: denies use Caffeine: Yes (CUP COFFEE DAILY) How often does anyone, including family, friends and others, physically hurt you : never How often does anyone, including family, friends and others, insult or talk down to you: never How often does anyone, including family, friends and others, threaten you with harm: never How often does anyone, including family, friends and others, scream or curse at you: never Little interest or pleasure in doing things: several days Feeling down, depressed, or hopeless: several days service: No Exam Narrative: Exam Narrative: Objective: Patient is afebrile blood pressure is 80/46 as mention she was started on increased dose of metoprolol at her last hospital stay O2 sat is 94% on 2 L nasal cannula Patient is afebrile HEENT is unremarkable slightly dry mucous membranes in the mouth Neck is supple Chest diminished air exchange bilaterally Heart rate and rhythm regular 2/6 systolic murmur Abdomen benign soft large surgical scar from cholecystectomy Pelvis stable Catheter in place Patient is a wound VAC on her buttock area She has pads on her legs and very atrophic leg musculature is noted Const: Vital Signs, click to edit/add: Vital Signs - 24 hr 03/21/24 19:40 Temperature 98.6 F Pulse Rate [Pulse Oximeter] 93 Respiratory Rate 20 Blood Pressure [Ri ght Upper Arm] 80/46 L Pulse Oximetry 94 Oxygen Delivery Me thod Nasal Cannula Oxygen Flow Rate 2 Course Vital Signs Vital signs: Initial Vital Signs Temperature 98.6 F 03/21/24 19:40 Temperature Source Temporal Artery Scan 03/21/24 19:40 Pulse Rate 93 03/21/24 19:40 Respiratory Rate 20 03/21/24 19:40 Blood Pressure 80/46 L 03/21/24 19:40 Blood Pressure Mean 57 L 03/21/24 19:40 Blood Pressure Position Sitting 03/21/24 19:40 Pulse Oximetry 94 03/21/24 19:40 Oxygen Delivery Method Nasal Cannula 03/21/24 19:40 Oxygen Flow Rate 2 03/21/24 19:40 Vital Signs Temperature 98.6 F 03/21/24 19:40 Pulse Rate 93 03/21/24 19:40 Respiratory Rate 20 03/21/24 19:40 Blood Pressure 80/46 L 03/21/24 19:40 Pulse Oximetry 94 03/21/24 19:40 Oxygen Delivery Method Nasal Cannula 03/21/24 19:40 Oxygen Flow Rate 2 03/21/24 19:40 Temperature 98.6 F 03/21/24 19:40 Pulse Rate 93 03/21/24 19:40 Respiratory Rate 20 03/21/24 19:40 Blood Pressure 80/46 L 03/21/24 19:40 Pulse Oximetry 94 03/21/24 19:40 Oxygen Delivery Method Nasal Cannula 03/21/24 19:40 Oxygen Flow Rate 2 03/21/24 19:40 Medications Administered Medications: Generic Name Dose Route Start Last Admin Trade Name Freq PRN Reason Stop Dose Admin Hydrocortisone Sodium Succinate 100 mg 03/21/24 20:11 03/21/24 20:46 Hydrocortisone Sod Succinate 50 Mg/Ml Inj IVP 03/21/24 20:12 100 mg ONCE ONE Administration Sodium Chloride 1,000 mls @ 6,000 mls/hr 03/21/24 20:00 03/21/24 20:40 0.9 % Sodium Chloride 1000 Ml IV 03/21/24 20:09 Infused .Q10M ESTELA Infusion Ertapenem 1 gm/ Sodium 100 mls @ 200 mls/hr 03/21/24 19:51 03/21/24 20:41 Chloride IVPB 03/21/24 19:52 200 mls/hr ONCE ONE Administration Sodium Chloride 1,000 mls @ 6,000 mls/hr 03/21/24 20:15 03/21/24 20:34 0.9 % Sodium Chloride 1000 Ml IV 03/21/24 20:24 6,000 mls/hr .Q10M ESTELA Administration Medical Decision Making MDM Narrative Medical decision making narrative: 78-year-old white female with a history of recent Recent sepsis with E coli bacteremia. At this point the patient has been on Levaquin, but she felt some chills today and her blood pressure is lower, she was also started on increased dose of metoprolol her last stay. Will hold all blood pressure medicines, IV fluid bolus, IV ertapenem after her cultures done, patient is allergic to vancomycin. Will monitor however blood pressure improves, and treat with aggressive fluid resuscitation, disposition plan regarding keeping or transferring will be made based on her response. Will get a chest x-ray, laboratory studies, will start a pressor she does not improve her situation may need transfer. She would like to stay here possible. Addendum 8:35 p.m.: The patient's blood pressure has been in the 80s primarily in upper 80s. Discussed with Dr. Bear who kindly will accept to the hospital. The patient is DNR DNI she does have a history of sepsis. She her lactate is normal at this time. Will add a VBG on to her labs. Lab Data Labs: Lab Results 03/21/24 03/21/24 Range/Units 19:45 19:49 WBC 18.61 H (4.50-11.00) K/uL RBC 3.48 L (4.00-5.20) m/uL Hgb 9.3 L (12.0-16.0) gm/dL Hct 30.7 L (33.0-51.0) % MCV 88 (80-100) fL MCH 27 (26-34) pg MCHC 30 L (32-36) gm/dL RDW Coeff of Lynette 17.3 H (11.5-15.5) % Plt Count 279 (140-440) K/uL Neut % (Auto) 90.2 H (42.0-72.0) % Lymph % (Auto) 4.4 L (20-44) % [place] % (Auto) 3.7 (0.0-11.0) % Eos % (Auto) 0.3 (0.0-7.0) % Baso % (Auto) 0.1 (0.0-3.0) % Neut # (Auto) 16.80 H (1.7-7.0) K/uL Lymph # (Auto) 0.80 L (0.90-2.90) K/uL [place] # (Auto) 0.70 (0.00-0.90) K/UL Eos # (Auto) 0.10 (0.00-0.50) K/uL Baso # (Auto) 0.00 (0.00-0.30) K/uL Abs Immat Gran (auto) 0.20 (0.00-0.30) K/uL Imm/Tot Granulo (auto) 1.3 % INR 1.09 (0.91-1.10) VBG pH 7.448 H (7.32-7.43) VBG pCO2 44 (40-50) mmHG VBG pO2 76.6 H (25-47) mmHG VBG HCO3 30 H (21-28) mmol/L Sodium 137 (135-149) mmol/L Potassium 3.7 (3.6-5.1) mmol/L Chloride 103 (96-114) mmol/L Carbon Dioxide 31 (20-32) mmol/L Anion Gap 3 L (7-15) mEq/L BUN 35 H (7-30) mg/dL Creatinine 0.8 (0.5-1.5) mg/dL Estimated Creat Clear 33.84 Estimated GFR 76 ml/min Glucose 117 H (60-115) mg/dL Lactate 1.2 (0.5-1.9) mmol/L Calcium 7.9 L (8.4-10.6) mg/dL Total Bilirubin 0.7 (0.1-1.5) mg/dL Direct Bilirubin 0.5 (0.0-0.5) mg/dL AST 50 H (12-35) U/L ALT 26 (4-35) U/L Alkaline Phosphatase 413 H (40-150) U/L Total Protein 4.8 L (6.0-8.3) g/dL Albumin 2.7 L (3.3-5.0) g/dL Discharge Plan Discharge Clinical Impression: Acute hypotension Patient Disposition: Admitted As Observation
[2024-03-21] MEDS: 0.9 % SODIUM CHLORIDE 1000 ml 1,000 ML 6000 ML IV ×2 (20:00→20:34)
[2024-03-21 20:09] LABS: Lactate* 1.2 mmol/L (0.5-1.9)
[2024-03-21 20:12] LABS: Basophils Percent Auto 0.1 % (0.0-3.0); Eosinophils Percent Auto 0.3 % (0.0-7.0); Hematocrit 30.7 % (33.0-51.0); Hemoglobin* 9.3 gm/dL (12.0-16.0); Immature Granulocytes Pct Auto 1.3 %; Lymphocytes Percent Auto 4.4 % (20-44); Mean Corpuscular HGB Conc 30 gm/dL (32-36); Mean Corpuscular Hemoglobin 27 pg (26-34); Mean Corpuscular Volume 88 fL (80-100); Monocytes Percent Auto 3.7 % (0.0-11.0); Neutrophils Percent Auto 90.2 % (42.0-72.0); Platelet Count* 279 K/uL (140-440); RDW Coefficient of Variation % 17.3 % (11.5-15.5); Red Blood Count 3.48 m/uL (4.00-5.20); White Blood Count* 18.61 K/uL (4.50-11.00)
[2024-03-21 20:13] LABS: Albumin* 2.7 g/dL (3.3-5.0); Chloride* 103 mmol/L (96-114); Potassium* 3.7 mmol/L (3.6-5.1); Sodium* 137 mmol/L (135-149)
[2024-03-21 20:15] LABS: Aspartate Amino Transferase* 50 U/L (12-35); Bilirubin Direct* 0.5 mg/dL (0.0-0.5); Bilirubin Total* 0.7 mg/dL (0.1-1.5); INR 1.09 (0.91-1.10); Prothrombin Time 14.7 Seconds; Slide Review Reflex No; Total Protein* 4.8 g/dL (6.0-8.3)
[2024-03-21 20:16] LABS: Alanine Aminotransferase* 26 U/L (4-35); Alkaline Phosphatase* 413 U/L (40-150); Anion Gap 3 mEq/L (7-15); Carbon Dioxide* 31 mmol/L (20-32); Creatinine* 0.8 mg/dL (0.5-1.5); Est. Creatinine Clearance* 33.84; Estimated Glomerular Filt Rate 76 ml/min
[2024-03-21 20:17] LABS: Blood Urea Nitrogen* 35 mg/dL (7-30); Calcium* 7.9 mg/dL (8.4-10.6); Glucose* 117 mg/dL (60-115)
[2024-03-21 20:38] LABS: HCO3 VBG 30 mmol/L (21-28); PCO2 VBG 44 mmHG (40-50); PO2 VBG 76.6 mmHG (25-47); pH VBG 7.448 (7.32-7.43)
[2024-03-21 20:41] LABS: Appearance Urine Cloudy (Clear); Bilirubin Urine Negative (Negative); Blood Urine 2+ (Negative); Color Urine Yellow (Yellow); Glucose Urine Negative (Negative); Ketones Urine Negative (Negative); Leukocyte Esterase Urine 3+ (Negative); Nitrite Urine Negative (Negative); Protein Urine Trace (Negative); Urobilinogen Urine 0.2 (0.2-1.0)
[2024-03-21] MEDS: ERTAPENEM 1 GM in 0.9 % SODIUM CHLORIDE Mini-bag 100 ML IVPB (20:41)
--- NOTE | 2024-03-21 20:44 | P.IMHP_ITS ---
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 We know aMry well. She was just hospitalized 03/06-03/14 at [facility] for septic shock, Ecoli UTI & bacteremia. IV rocephin to oral levaquin. She is still on Levaquin. She was stable the first few days home but felt a return of her weakness, chills and fever in the last 24 hours. She has chronic wounds of her right gluteus, coccyx and left foot that have been the source of sepsis for the last couple of years. Our wound care team has managed her both inpatient and outpatient. She currently has dressings on two of the wounds, wound vac on the right gluteus wound. [facility] Date of Admission: 03/06/2024 Date of Discharge: 03/14/2024 Discharge Diagnoses Septic shock secondary to E. coli UTI/bacteremia Acute E. coli CAUTI with bacteremia Right ischial tuberosity pressure injury, Stage 4 (present on admission) Coccyx pressure injury, Stage 4 (present on admission) Left dorsal foot pressure injury and trauma (present on admission) Hypertension Hypokalemia (resolved) Hypernatremia (resolved) Elevated liver function tests secondary to septic shock (improved) Atrial fibrillation Rheumatoid arthritis on chronic prednisone therapy Significant peripheral edema ER COURSE: fluids, labs, no imaging, steroids/abx. CODE STATUS: DNR DNI EMERGENCY CONTACT PLAN: Elvi Ly Rel To Pat Daughter Cell I've updated the PFSH, medications and allergies in the Expanse tabs. INVESTIGATIONS: LABS/MICRO/ECG/IMAGING CBC reflects 18.6 her total white blood cell count (15.5 at d/c from [facility] 03/14) Chronic anemia is at 9.3 (10.4 at discharge 03/14 from [facility]) Normal platelets Normal INR Mild metabolic alkalosis. Normal pCO2. Normal electrolytes. Normal renal function. Glucose 117. Alk phos bumped. She typically has had normal values. Up to 413 today. AST is mildly elevated at 50. UA reflects a cloudy urine, 2+ blood, 3+ leukocyte esterase, 25-50 white blood cells, bacteria yeast and sediment noted. Two blood cultures, urine culture pending. Chest x-ray: No evidence of an acute pulmonary process. REVIEW OF SYSTEMS: 12-point ROS completed with patient and negative unless otherwise stated in HPI or below. PHYSICAL EXAM: CONSTITUTIONAL: VITAL SIGNS: see record. HEENT: Normocephalic, atraumatic. PERRL, EOMI, conjunctivae pink, no scleral icterus. Ears and nose externally normal. Pharynx normal. NECK: No JVD. No carotid bruit, no thyromegaly, no adenopathy. CHEST: Clear to auscultation bilaterally HEART: S1 and S2 normal. No harsh murmurs. Edema MUSCULOSKELETAL: No gross joint deformity or swelling. NEURO: at baseline: atrophied, paralyzed lower ext - sensation intact, motor function loss. UE wnl. SKIN: No rashes, petechiae, concerning changes PSYCHIATRIC: Euthymic. ADMIT TO MEDSURG: FLOOR CARE DVT: Lovenox GI: PO intake Time spent: Today I spent 75 minutes seeing the patient, discussing the patient with ER staff, reviewing Expanse and EPIC notes/diagnostics, discussing the care plan with our care time that includes social work, PT/OT, pharmacy, RT, group home and documenting my impressions and plan in the medical record. [facility] Medical History (Updated 03/21/24 @ 22:16 by Melvi Bear MD) Pressure ulcer ?L89.90 - Pressure ulcer of unspecified site, unspecified stage (ICD-10) Osteomyelitis ?M86.9 - Osteomyelitis, unspecified (ICD-10) Anemia ?D64.9 - Anemia, unspecified (ICD-10) Diarrhea ?R19.7 - Diarrhea, unspecified (ICD-10) Intravenous infiltration ?T80.1XXA - Vascular complications following infusion, transfusion and therapeutic injection, initial encounter (ICD-10) Neurogenic bladder ?N31.9 - Neuromuscular dysfunction of bladder, unspecified (ICD-10) Chronic, continuous use of opioids ?F11.90 - Opioid use, unspecified, uncomplicated (ICD-10) 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, stage 4 ?L89.44 - Pressure ulcer of contiguous site of back, buttock and hip, stage 4 (ICD-10) Rheumatoid arthritis ?M06.9 - Rheumatoid arthritis, unspecified (ICD-10) HTN (hypertension) ?I10 - Essential (primary) hypertension (ICD-10) Delacruz catheter in place ?Z97.8 - Presence of other specified devices (ICD-10) Sleep apnea ?G47.30 - Sleep apnea, unspecified (ICD-10) Paraplegia ?G82.20 - Paraplegia, unspecified (ICD-10) Acute on chronic anemia ?D64.9 - Anemia, unspecified (ICD-10) Paraplegia ?G82.20 - Paraplegia, unspecified (ICD-10) Chronic pain ?G89.29 - Other chronic pain (ICD-10) Tubular adenoma of colon ?D12.6 - Benign neoplasm of colon, unspecified (ICD-10) 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 - Acute transverse myelitis in demyelinating disease of central nervous system (ICD-10) Septic shock ?A41.9 - Sepsis, unspecified organism (ICD-10) ?R65.21 - Severe sepsis with septic shock (ICD-10) Recurrent urinary tract infection ?N39.0 - Urinary tract infection, site not specified (ICD-10) Osteoporosis ?M81.0 - Age-related osteoporosis without current pathological fracture (ICD- 10) History of methicillin resistant Staphylococcus aureus infection ?Z86.14 - Personal history of Methicillin resistant Staphylococcus aureus infection (ICD-10) Surgical History Status post debridement ?Z98.890 - Other specified postprocedural states (ICD-10) Social History Narrative: Mary has recently been living at [facility], daughter Elvi (MDM i f needed) is hoping to bring her home with time clock mechanic caregiving. has cognitive impairment. At this time (12/08/23), she is requesting DNR/DNI status. Nonsmoker, no ETOH use. What is your current living situation?: I presently have a place to live Problems where you live: no known problems Problems where you live details: N/A In the past 12 months, utilities in danger of being shut off: no In past 12 months, lack of transportation kept you from medical appts, meetings, work, or getting things needed for daily living: no In the past 12 mos, have been you worried that your food would run out before you had money to buy more?: never true In the past 12 mos, the food you bought just didn't last and you didn't have money to buy more?: never true Highest level of school completed/degree received: Bachelor's degree Smoking Status: Never smoker Do you use any of these nicotine containing products: None Second hand tobacco smoke exposure: No How often do you have a drink containing alcohol: never How often do you have six or more drinks on one occasion: Never AUDIT-C Alcohol total score: 0 Non-prescribed substance use: denies use Caffeine: Yes (CUP COFFEE DAILY) How often does anyone, including family, friends and others, physically hurt you : never How often does anyone, including family, friends and others, insult or talk down to you: never How often does anyone, including family, friends and others, threaten you with harm: never How often does anyone, including family, friends and others, scream or curse at you: never Little interest or pleasure in doing things: several days Feeling down, depressed, or hopeless: several days service: No Meds Home Medications and Allergies Allergies Allergy/AdvReac Type Severity Reaction Status Date / Time piperacillin Allergy Intermediate Rash Verified 01/16/24 05:11 sulfamethoxazole Allergy Intermediate Hives Verified 01/23/24 10:48 [From Bactrim] tazobactam Allergy Intermediate Rash Verified 01/16/24 05:11 trimethoprim [From Bactrim] Allergy Intermediate Hives Verified 01/23/24 10:48 vancomycin Allergy Unknown Anaphylactic Verified 01/16/24 05:11 shock with this medication. Also custodial demario Exam Const: Vital Signs, click to edit/add: Vital Signs - 24 hr 03/21/24 19:40 Temperature 98.6 F Pulse Rate [Pulse Oximeter] 93 Respiratory Rate 20 Blood Pressure [Ri ght Upper Arm] 80/46 L Pulse Oximetry 94 Oxygen Delivery Me thod Nasal Cannula Oxygen Flow Rate 2 Hospitalist - H&P: Result Labs Labs: Short CBC 03/21/24 Range/Units 19:45 WBC 18.61 H (4.50-11.00) K/uL Hgb 9.3 L (12.0-16.0) gm/dL Hct 30.7 L (33.0-51.0) % Plt Count 279 (140-440) K/uL BMP 03/21/24 19:45 Sodium 137 Potassium 3.7 Chloride 103 Carbon Dioxide 31 BUN 35 H Creatinine 0.8 Glucose 117 H Calcium 7.9 L Liver Function 03/21/24 Range/Units 19:45 Total Bilirubin 0.7 (0.1-1.5) mg/dL Direct Bilirubin 0.5 (0.0-0.5) mg/dL AST 50 H (12-35) U/L ALT 26 (4-35) U/L Alkaline Phosphatase 413 H (40-150) U/L Albumin 2.7 L (3.3-5.0) g/dL Assessment and Plan Assessment and plan (1) Sepsis associated hypotension: Problem comment: -sepsis criteria with elevated WBC, infection and SBP <90. likely source is either urine or wound infection. ertapenem to cover initially. -I reviewed [facility] but could not locate blood or urine cultures from [facility] hospitalization -cultures drawn -IVF to support pressure, pt ok with pressors if needed. had a terrible experience with central line two weeks ago, would like PICC if needed. -no new imaging tonight; can pursue if clinical concern or intervention would be warranted. Status: Acute (2) UTI (urinary tract infection): Problem comment: indwelling cath - frequent infections, recent bacteremia with ECOLI two weeks ago -change delacruz tonight -await cultures Status: Acute (3) Pressure ulcer: Problem comment: Right ischial tuberosity pressure injury, Stage 4 x 2 (present on admission) Coccyx pressure injury, Stage 4 (present on admission) Status: Acute (4) Osteomyelitis: Problem comment: -chronic; delayed healing. two wound vacs in place for right glut wounds, new wound noted on right glut in the last few weeks. -wound long-term health and wound care care for her - remote history of MRSA in wound, recent MRSA swabs negative - has been treated previously with surgical debridement and multiple courses of antibiotics Status: Acute (5) Anemia: Problem comment: - no obvious bleeding, currently Hgb is 9-10 (baseline) - follow Status: Acute (6) Paraplegia: Problem comment: - since age 6; 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 Status: Chronic (7) Hypoalbuminemia due to protein-calorie malnutrition: Problem comment: - mild protein-calorie malnutrition as evidenced by poor po intake, recurrent infections, hypoalbuminemia - encourage protein supplementation, nutrition referral Status: Acute (8) COPD (chronic obstructive pulmonary disease): Problem comment: - chronic overlay with central sleep apnea and hypoventilation given long standing paraplegia - previously has used BIPAP during hospital stays Status: Acute (9) Neurogenic bladder: Problem comment: - chronic indwelling catheter Status: Chronic (10) Chronic, continuous use of opioids: Problem comment: - on Oxycodone 7.5 mg QID as an outpatient, continue to assess and treat as needed. Increasing risk for worsening hypoxia and hypoventilation Status: Acute (11) Sleep apnea: Problem comment: - Clinically suspected, no previous evaluation or sleep study - encourage postoperative pulmonary hygiene, [place] Status: Suspected (12) CO2 retention: Problem comment: - long history of severe CO2 retention, cannot receive supplemental oxygen without BiPAP, RT aware and following - using BIPAP at night Status: Acute
[2024-03-21] MEDS: HYDROCORTISONE SOD SUCCINATE 50 MG/ML inj 100 MG IVP (20:46)
[2024-03-21 20:55] LABS: RBC Urine 0-2 (0-2); WBC Urine 25-50 (0-5)
[2024-03-21 20:56] LABS: Bacteria Urine Few; Other Sediment Urine Many
[2024-03-21 20:57] LABS: Calcium Oxalate Crystals Urine Few
[2024-03-21 21:56] LABS: Gamma Glutamyl Transpeptidase* 328 U/L (8-55)
[2024-03-21 22:12] LABS: C Reactive Protein* 18.6 mg/dL (0.5-1.0)
[2024-03-21] MEDS: OXYCODONE 5 MG TABLET 7.5 MG PO (22:50)
[2024-03-22] VITALS (9 sets, daily range): BP systolic 93–134; BP diastolic 59–78; PULSE 72–91; RESP 18–24; TEMP 36.1–36.8; O2SAT 91–94; BMI 26.5
[2024-03-22] MEDS: SODIUM CHLORIDE 0.9 % (FLUSH) 10 ML SYRINGE 5 ML IVF ×2 (00:02→19:43)
[2024-03-22] MEDS: ENOXAPARIN 40 MG/0.4 ML INJ SUBCUT ×2 (00:02→20:41)
[2024-03-22] MEDS: PANTOPRAZOLE SODIUM 40 MG INJ IVPB (00:02)
[2024-03-22] MEDS: 0.9 % SODIUM CHLORIDE 1000 ml 1,000 ML 125 ML IV ×3 (00:02→18:42)
[2024-03-22 06:27] LABS: HCO3 VBG 26 mmol/L (21-28); PCO2 VBG 48 mmHG (40-50); PO2 VBG 43.6 mmHG (25-47); pH VBG 7.349 (7.32-7.43)
[2024-03-22 06:30] LABS: Basophils Percent Auto 0.1 % (0.0-3.0); Hematocrit 30.6 % (33.0-51.0); Immature Granulocytes Pct Auto 2.6 %; Lymphocytes Percent Auto 6.9 % (20-44); Mean Corpuscular HGB Conc 29 gm/dL (32-36); Mean Corpuscular Hemoglobin 26 pg (26-34); Mean Corpuscular Volume 90 fL (80-100); Monocytes Percent Auto 2.9 % (0.0-11.0); Neutrophils Percent Auto 87.5 % (42.0-72.0); Platelet Count* 267 K/uL (140-440); RDW Coefficient of Variation % 17.5 % (11.5-15.5); Red Blood Count 3.42 m/uL (4.00-5.20); White Blood Count* 19.25 K/uL (4.50-11.00)
[2024-03-22 06:33] LABS: Slide Review Reflex No
--- NOTE | 2024-03-22 06:37 | PC.NURSE ---
End of shift - Pt arrived from ED at approximately 2125 with family at bedside. Alert, oriented, cooperative. Pt tolerating O2 via nasal cannula at 1L upon arrival to unit. Pt used bipap from home while sleeping, did not need to continue with O2 via nasal cannula upon waking, able to maintain saturation at 90% or above per MD order. Pt reported pain in coccyx area as 8/10. Medication given per MAR to improve pt discomfort. Afebrile during shift, VSS. Chronic wounds present on coccyx, 2 connected to pt wound vac, 1 covered with mepilex. Dressing on mepilex wound changed upon arrival to unit. Pt arrived with delacruz catheter in place, removed and replaced with new Delacruz catheter per MD order. Observed to be patent and draining. Pt appears to be resting comfortably at end of shift.
[2024-03-22 06:50] LABS: Albumin* 2.7 g/dL (3.3-5.0); Chloride* 109 mmol/L (96-114)
[2024-03-22 06:51] LABS: Potassium* 3.6 mmol/L (3.6-5.1); Sodium* 140 mmol/L (135-149)
[2024-03-22 06:52] LABS: Creatinine* 0.6 mg/dL (0.5-1.5); Est. Creatinine Clearance* 33.84; Estimated Glomerular Filt Rate 92 ml/min
[2024-03-22 06:53] LABS: Alkaline Phosphatase* 358 U/L (40-150); Anion Gap 6 mEq/L (7-15); Aspartate Amino Transferase* 46 U/L (12-35); Bilirubin Direct* 0.5 mg/dL (0.0-0.5); Bilirubin Total* 0.5 mg/dL (0.1-1.5); Blood Urea Nitrogen* 31 mg/dL (7-30); Carbon Dioxide* 25 mmol/L (20-32); Glucose* 99 mg/dL (60-115); Lipase* 12 U/L (23-300); Total Protein* 4.8 g/dL (6.0-8.3)
[2024-03-22 06:54] LABS: Alanine Aminotransferase* 36 U/L (4-35); Calcium* 7.3 mg/dL (8.4-10.6)
[2024-03-22 07:11] LABS: C Reactive Protein* 21.4 mg/dL (0.5-1.0)
[2024-03-22] MEDS: POTASSIUM CHLORIDE 10 MEQ CAPSULE ER 20 MEQ PO ×2 (08:23→20:42)
[2024-03-22] MEDS: predniSONE 5 MG TABLET 10 MG PO (08:23)
[2024-03-22] MEDS: GABAPENTIN 300 MG CAPSULE PO ×3 (08:24→20:41)
[2024-03-22] MEDS: OXYCODONE 5 MG TABLET 7.5 MG PO ×3 (08:24→18:22)
--- NOTE | 2024-03-22 09:15 | P.IMPN_ITS ---
Progress Note: A&P Assessment and plan (1) Sepsis associated hypotension: Problem details: -sepsis criteria with elevated WBC, infection and SBP <90. likely source is either urine or wound infection. ertapenem to cover initially. -I reviewed [facility] but could not locate blood or urine cultures from [facility] hospitalization -cultures drawn -IVF to support pressure, pt ok with pressors if needed. had a terrible experience with central line two weeks ago, would like PICC if needed. -no new imaging tonight; can pursue if clinical concern or intervention would be warranted. 03/22: Remains afebrile; BP improved most recent SBP in 130s. Blood and UCx pending; continue ertapenem; hold metoprolol and lasix Status: Acute (2) UTI (urinary tract infection): Problem details: indwelling cath - frequent infections, recent bacteremia with ECOLI two weeks ago -change delacruz tonight -await cultures 03/22: f/u Cx Status: Acute (3) Pressure ulcer: Problem details: Right ischial tuberosity pressure injury, Stage 4 x 2 (present on admission) Coccyx pressure injury, Stage 4 (present on admission) Status: Acute (4) Osteomyelitis: Problem details: -chronic; delayed healing. two wound vacs in place for right glut wounds, new wound noted on right glut in the last few weeks. 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 Status: Chronic (7) Hypoalbuminemia due to protein-calorie malnutrition: Problem details: - mild protein-calorie malnutrition as evidenced by poor po intake, recurrent infections, hypoalbuminemia - encourage protein supplementation, nutrition referral Status: Acute (8) COPD (chronic obstructive pulmonary disease): Problem details: - chronic overlay with central sleep apnea and hypoventilation given long standing paraplegia - previously has used BIPAP during hospital stays Status: Acute (9) Neurogenic bladder: Problem details: - chronic indwelling catheter Status: Chronic (10) Chronic, continuous use of opioids: Problem details: - on Oxycodone 7.5 mg QID as an outpatient, continue to assess and treat as needed. Increasing risk for worsening hypoxia and hypoventilation Status: Acute (11) CO2 retention: Problem details: - long history of severe CO2 retention, cannot receive supplemental oxygen without BiPAP, RT aware and following - using BIPAP at night Status: Acute Plan Anticipated hospital stay 2-3 days pending antibiotic plan and microbiology data Subjective Date Seen: 03/22/24 Interval history: patient endorses generalized weakness wound care to assess wound vac this morning hypotensive overnight but BP normalized this AM SBP in 130s Exam Narrative: Exam Narrative: Gen: no acute distress HEENT: NCAT EOMI mmm CV: RRR normal s1 s2 Lungs: CTAB Abd: Soft,nt, nd Neuro: Alert, oriented, CN grossly intact; nonfocal screening?exam Psych: appropriate affect MSK: age appropriate muscle mass Skin; Warm, dry no rash on face : Delacruz in place Const: Vital Signs, click to edit/add: Vital Signs - 24 hr 03/21/24 19:40 03/21/24 19:47 03/21/24 19:48 Temperature 98.6 F Pulse Rate 92 91 Pulse Rate [Pulse Oximeter] 93 Respiratory Rate 20 Blood Pressure 79/47 L Blood Pressure [Le ft Radial Artery] Blood Pressure [Ri ght Upper Arm] 80/46 L Pulse Oximetry 94 95 95 Oxygen Delivery Me thod Nasal Cannula Nasal Cannula Nasal Cannula Oxygen Flow Rate 2 2 2 03/21/24 20:00 03/21/24 20:02 03/21/24 20:10 Temperature Pulse Rate 87 85 88 Pulse Rate [Pulse Oximeter] Respiratory Rate Blood Pressure 88/50 L 73/43 L Blood Pressure [Le ft Radial Artery] Blood Pressure [Ri ght Upper Arm] Pulse Oximetry 95 95 97 Oxygen Delivery Me thod Nasal Cannula Nasal Cannula Nasal Cannula Oxygen Flow Rate 2 2 2 03/21/24 20:11 03/21/24 20:15 03/21/24 20:17 Temperature Pulse Rate 86 88 86 Pulse Rate [Pulse Oximeter] Respiratory Rate Blood Pressure 88/45 L 84/42 L Blood Pressure [Le ft Radial Artery] Blood Pressure [Ri ght Upper Arm] Pulse Oximetry 96 93 94 Oxygen Delivery Me thod Nasal Cannula Nasal Cannula Nasal Cannula Oxygen Flow Rate 2 1 1 03/21/24 20:22 03/21/24 20:30 03/21/24 20:32 Temperature Pulse Rate 89 88 87 Pulse Rate [Pulse Oximeter] Respiratory Rate Blood Pressure 91/47 L 75/44 L Blood Pressure [Le ft Radial Artery] Blood Pressure [Ri ght Upper Arm] Pulse Oximetry 94 94 94 Oxygen Delivery Me thod Nasal Cannula Nasal Cannula Nasal Cannula Oxygen Flow Rate 1 1 1 03/21/24 20:34 03/21/24 20:42 03/21/24 20:45 Temperature Pulse Rate 85 87 89 Pulse Rate [Pulse Oximeter] Respiratory Rate Blood Pressure 97/45 L 104/52 L Blood Pressure [Le ft Radial Artery] Blood Pressure [Ri ght Upper Arm] Pulse Oximetry 94 92 93 Oxygen Delivery Me thod Nasal Cannula Nasal Cannula Nasal Cannula Oxygen Flow Rate 1 1 1 03/21/24 20:52 03/22/24 02:43 03/22/24 04:04 Temperature Pulse Rate 88 Pulse Rate [Pulse Oximeter] Respiratory Rate 24 Blood Pressure 105/53 L Blood Pressure [Le ft Radial Artery] Blood Pressure [Ri ght Upper Arm] Pulse Oximetry 93 93 92 Oxygen Delivery Me thod Nasal Cannula Nasal Cannula Oxygen Flow Rate 1 1 03/22/24 04:06 03/22/24 04:47 03/22/24 08:00 Temperature 98.2 F Pulse Rate Pulse Rate [Pulse Oximeter] 86 74 Respiratory Rate 24 24 18 Blood Pressure Blood Pressure [Le ft Radial Artery] 93/59 L Blood Pressure [Ri ght Upper Arm] Pulse Oximetry 93 93 Oxygen Delivery Me thod Nasal Cannula Nasal Cannula Oxygen Flow Rate 1 1 03/22/24 08:00 Temperature 97.8 F Pulse Rate Pulse Rate [Pulse Oximeter] 74 Respiratory Rate 18 Blood Pressure Blood Pressure [Le ft Radial Artery] 134/76 Blood Pressure [Ri ght Upper Arm] Pulse Oximetry 94 Oxygen Delivery Me thod Room Air Oxygen Flow Rate Labs Labs: Laboratory Results - last 24 hr 03/21/24 03/21/24 03/21/24 19:45 19:49 20:14 WBC 18.61 H RBC 3.48 L Hgb 9.3 L Hct 30.7 L MCV 88 MCH 27 MCHC 30 L RDW Coeff of Lynette 17.3 H Plt Count 279 Neut % (Auto) 90.2 H Lymph % (Auto) 4.4 L [place] % (Auto) 3.7 Eos % (Auto) 0.3 Baso % (Auto) 0.1 Neut # (Auto) 16.80 H Lymph # (Auto) 0.80 L [place] # (Auto) 0.70 Eos # (Auto) 0.10 Baso # (Auto) 0.00 Abs Immat Gran (auto) 0.20 Imm/Tot Granulo (auto) 1.3 INR 1.09 VBG pH 7.448 H VBG pCO2 44 VBG pO2 76.6 H VBG HCO3 30 H Sodium 137 Potassium 3.7 Chloride 103 Carbon Dioxide 31 Anion Gap 3 L BUN 35 H Creatinine 0.8 Estimated Creat Clear 33.84 Estimated GFR 76 Glucose 117 H Lactate 1.2 Calcium 7.9 L Phosphorus Total Bilirubin 0.7 Direct Bilirubin 0.5 GGT 328 H AST 50 H ALT 26 Alkaline Phosphatase 413 H C-Reactive Protein 18.6 H Total Protein 4.8 L Albumin 2.7 L Lipase Urine Color Yellow Urine Appearance Cloudy A Urine pH 5.0 Ur Specific [place] 1.020 Urine Protein Trace A Urine Glucose (UA) Negative Urine Ketones Negative Urine Blood 2+ A Urine Nitrite Negative Urine Bilirubin Negative Urine Urobilinogen 0.2 Ur Leukocyte Esterase 3+ A Urine RBC 0-2 Urine WBC 25-50 A Ur Squamous Epith Cells None Calcium Oxalate Crystal Few A Other Sediment Many A Urine Bacteria Few A Urine Yeast Many A Lab Acknowledgement 03/21/24 03/22/24 20:53 06:15 WBC 19.25 H RBC 3.42 L Hgb 9.0 L Hct 30.6 L MCV 90 MCH 26 MCHC 29 L RDW Coeff of Lynette 17.5 H Plt Count 267 Neut % (Auto) 87.5 H Lymph % (Auto) 6.9 L [place] % (Auto) 2.9 Eos % (Auto) 0.0 Baso % (Auto) 0.1 Neut # (Auto) 16.80 H Lymph # (Auto) 1.30 [place] # (Auto) 0.60 Eos # (Auto) 0.00 Baso # (Auto) 0.00 Abs Immat Gran (auto) 0.50 H Imm/Tot Granulo (auto) 2.6 INR VBG pH 7.349 VBG pCO2 48 VBG pO2 43.6 VBG HCO3 26 Sodium 140 Potassium 3.6 Chloride 109 Carbon Dioxide 25 Anion Gap 6 L BUN 31 H Creatinine 0.6 Estimated Creat Clear 33.84 Estimated GFR 92 Glucose 99 Lactate Calcium 7.3 L Phosphorus 4.0 Total Bilirubin 0.5 Direct Bilirubin 0.5 GGT AST 46 H ALT 36 H Alkaline Phosphatase 358 H C-Reactive Protein 21.4 H Total Protein 4.8 L Albumin 2.7 L Lipase 12 L Urine Color Urine Appearance Urine pH Ur Specific [place] Urine Protein Urine Glucose (UA) Urine Ketones Urine Blood Urine Nitrite Urine Bilirubin Urine Urobilinogen Ur Leukocyte Esterase Urine RBC Urine WBC Ur Squamous Epith Cells Calcium Oxalate Crystal Other Sediment Urine Bacteria Urine Yeast Lab Acknowledgement Test Added
[2024-03-22] MEDS: ACETAMINOPHEN 325 MG TABLET PO ×2 (12:11→18:21)
--- NOTE | 2024-03-22 12:44 | CRLHL7_ITS ---
For Patients: As a result of the Century Cures Act, medical imaging exams and procedure reports are released immediately into your electronic medical record. You may view this report before your referring provider. If you have questions, please contact your health care provider. INDICATION: NEW PELVIC WOUND. PT IS PARAPALEGIC. TECHNIQUE: CT abdomen and pelvis acquired with 67 cc Isovue 370 IV contrast. COMPARISON: January 16, 2024. FINDINGS: Lower chest: Mild bibasilar linear opacities likely atelectasis or scarring. Liver: Unremarkable. Normal in size and attenuation. No suspicious masses. Gallbladder and bile ducts: Gallbladder is absent. Mild intra and extrahepatic biliary ductal dilatation likely reservoir effect. Pancreas: Unremarkable. No mass or inflammation. Spleen: Unremarkable. Normal in size. No masses. Adrenal glands: Unremarkable. No nodules. Kidneys: Moderate right hydroureteronephrosis, which tapers distally in the ureter. Nonobstructing stones in the right renal pelvis, largest measuring 12 millimeters.. GI tract: Colonic diverticuli, especially within the sigmoid colon. No evidence of diverticulitis. No bowel obstruction. Appendix is not visualized. Vasculature: Abdominal aorta is normal in caliber. Mesenteric arteries are patent. Lymph nodes: No lymphadenopathy. Peritoneum/Abdominal Wall: Diffuse subcutaneous edema. Mild diffuse mesenteric edema. No sign of mass or infiltration. No free air or significant free fluid. Sacral decubitus ulcer is identified extending to the sacrum (2/124) with exposure of the osseous surface. Mild stranding surrounding the ulceration. No focal fluid collection. In addition additional ulceration is identified extending to the deep gluteal soft tissues (2/141). Lower gluteal/upper thigh ulceration is also identified with surrounding soft tissue attenuation and no free fluid extending to the ischial tuberosity (2/149).. Pelvis: Cristobal catheter in-situ. Bladder is collapsed. Uterus is unremarkable. Diffuse atrophy. Bones: Diffuse demineralization of the visualized bones. There is sclerosis at the right ischial tuberosity likely related to chronic osteomyelitis from ulceration. In addition, there is subtle sclerosis along the inferior sacrum deep to the ulceration again likely related to chronic osteomyelitis in this region (5/118) superimposed acute osteomyelitis not entirely excluded. IMPRESSION: 1. Three decubitus ulcers are identified, with new extension to the sacrum. Underlying chronic osteomyelitis in the right ischial tuberosity as well as probably within the sacrum as well. Superimposed acute osteomyelitis not entirely excluded. The additional ulceration extends from the gluteal surface to the right paramidline perirectal soft tissues. 2. Moderate right hydroureteronephrosis with tapering distally in the ureter and no obstructing lesion identified. Nonobstructing stones in the right renal pelvis, largest measuring 12 millimeters. 3. Status post cholecystectomy. 4. Colonic diverticuli without evidence of diverticulitis. 5. Cristobal catheter in-situ. Bladder is collapsed. Please note that all CT scans at this facility use dose modulation, iterative reconstruction, and/or weight-based dosing when appropriate to reduce radiation dose to as low as reasonably achievable. Dictated by Nohemi Reyes MD @ 03/22/2024 6:23:26 PM (Electronically Signed)
--- NOTE | 2024-03-22 12:55 | P.IMCN_ITS ---
Date of Consult Consult date: 03/22/24 Requesting Physician: Hospitalist Primary Care Provider: Flo Mckeon MD Consult Narrative Reason for consult: Multiple stage IV pressure ulcers Narrative: Prerna Major is a pleasant 78 year old female known to wound services with multiple stage IV pressure ulcers to sacral/buttock region. 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 recent history of rectal abscess (01/06/24) with rectal fistula present- seton drain in place. recent conversation with patient and daughter about possible consideration for a palliative approach to her wound healing care plan. Patient is currently admitted to the medical floor for sepsis associated with hypotension. Patient met sepsis criteria with elevated WBC, infection and SBP <90. At this time infection source is unknown, presumed to be either urine or wound infection. Currently being treated with IV ertapenem. Of note patient was hospitalized at [facility] (03/06/2024- 03/14/2024) she was discharged on Oral levofloxacin, patient reports she consistently has taken the medication and she was on the medication at time of her current hospital admission. Patient denies experiencing worsening pain from her wounds today. She is afebrile at the time of this writing. Historically, patients wound healing has been complicated by insufficient and inconsistent offloading efforts in the home setting, leading to repeat severe infections and hospitalizations r/t sepsis, chronic long-term use of prednisone. Newer diagnosis of DM2- last A1C 6.6% February 2024 Review of Systems Status of ROS: Reports: 10 or more systems reviewed and unremarkable except as noted in History and below [facility] Medical History (Updated 03/22/24 @ 13:47 by Soco Malik [facility]) 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, stage 4 ?L89.44 - Pressure ulcer of contiguous site of back, buttock and hip, stage 4 (ICD-10) Pressure ulcer ?L89.90 - Pressure ulcer of unspecified site, unspecified stage (ICD-10) Osteomyelitis ?M86.9 - Osteomyelitis, unspecified (ICD-10) Anemia ?D64.9 - Anemia, unspecified (ICD-10) Diarrhea ?R19.7 - Diarrhea, unspecified (ICD-10) Intravenous infiltration ?T80.1XXA - Vascular complications following infusion, transfusion and therapeutic injection, initial encounter (ICD-10) Neurogenic bladder ?N31.9 - Neuromuscular dysfunction of bladder, unspecified (ICD-10) Chronic, continuous use of opioids ?F11.90 - Opioid use, unspecified, uncomplicated (ICD-10) Rheumatoid arthritis ?M06.9 - Rheumatoid arthritis, unspecified (ICD-10) HTN (hypertension) ?I10 - Essential (primary) hypertension (ICD-10) Cristobal catheter in place ?Z97.8 - Presence of other specified devices (ICD-10) Sleep apnea ?G47.30 - Sleep apnea, unspecified (ICD-10) Paraplegia ?G82.20 - Paraplegia, unspecified (ICD-10) Acute on chronic anemia ?D64.9 - Anemia, unspecified (ICD-10) Paraplegia ?G82.20 - Paraplegia, unspecified (ICD-10) Chronic pain ?G89.29 - Other chronic pain (ICD-10) Tubular adenoma of colon ?D12.6 - Benign neoplasm of colon, unspecified (ICD-10) 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 - Acute transverse myelitis in demyelinating disease of central nervous system (ICD-10) Septic shock ?A41.9 - Sepsis, unspecified organism (ICD-10) ?R65.21 - Severe sepsis with septic shock (ICD-10) Recurrent urinary tract infection ?N39.0 - Urinary tract infection, site not specified (ICD-10) Osteoporosis ?M81.0 - Age-related osteoporosis without current pathological fracture (ICD- 10) History of methicillin resistant Staphylococcus aureus infection ?Z86.14 - Personal history of Methicillin resistant Staphylococcus aureus infection (ICD-10) Surgical History Status post debridement ?Z98.890 - Other specified postprocedural states (ICD-10) Social History Narrative: Mary has recently been living at [facility], daughter Elvi (MDM if needed) is hoping to bring her home with radio time salesperson caregiving. has cognitive impairment. At this time (12/08/23), she is requesting DNR/DNI status. Nonsmoker, no ETOH use. What is your current living situation?: I presently have a place to live Problems where you live: no known problems Problems where you live details: n/a In the past 12 months, utilities in danger of being shut off: no In past 12 months, lack of transportation kept you from medical appts, meetings, work, or getting things needed for daily living: no In the past 12 mos, have been you worried that your food would run out before you had money to buy more?: never true In the past 12 mos, the food you bought just didn't last and you didn't have money to buy more?: never true Highest level of school completed/degree received: Bachelor's degree Smoking Status: Never smoker Do you use any of these nicotine containing products: None Second hand tobacco smoke exposure: No How often do you have a drink containing alcohol: never How often do you have six or more drinks on one occasion: Never AUDIT-C Alcohol total score: 0 Non-prescribed substance use: denies use Caffeine: Yes (1 cup coffee/day) How often does anyone, including family, friends and others, physically hurt you : never How often does anyone, including family, friends and others, insult or talk down to you: never How often does anyone, including family, friends and others, threaten you with harm: never How often does anyone, including family, friends and others, scream or curse at you: never Little interest or pleasure in doing things: several days Feeling down, depressed, or hopeless: several days service: No Meds Home Medications and Allergies Home Medications ?Medication ?Instructions ?Recorded ?Confirmed ?Type metoprolol succinate 100 mg 100 mg PO DAILY 03/22/24 03/22/24 History tablet,extended release 24 hr multivitamin with folic acid 400 1 tab PO DAILY 03/22/24 03/22/24 History mcg tablet (Daily-Charles (with folic acid)) Allergies Allergy/AdvReac Type Severity Reaction Status Date / Time piperacillin Allergy Intermediate Rash Verified 01/16/24 05:11 sulfamethoxazole Allergy Intermediate Hives Verified 01/23/24 10:48 [From Bactrim] tazobactam Allergy Intermediate Rash Verified 01/16/24 05:11 trimethoprim [From Bactrim] Allergy Intermediate Hives Verified 01/23/24 10:48 vancomycin Allergy Unknown Anaphylactic Verified 04/05/24 05:11 shock with this medication. 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 small amount of granulation, bone exposed. * Right ischial tuberosity:1.7x1.8x2.5cm tunneling at 11 o'clock of 3.2cm 50% granulation, 50% adherent slough, biofilm, and fascia, able to palpate bone, but not visualize bone. * Right Superior Buttock: [id number] with tunneling at 5 o'clock of 12cm due extensive tunneling, not able to fully visualize wound. Psych: normal affect Const: Vital Signs, click to edit/add: Vital Signs - 24 hr 03/21/24 19:40 03/21/24 19:47 03/21/24 19:48 Temperature 98.6 F Pulse Rate 92 91 Pulse Rate [Pulse Oximeter] 93 Respiratory Rate 20 Blood Pressure 79/47 L Blood Pressure [Le ft Arm] Blood Pressure [Le ft Radial Artery] Blood Pressure [Ri ght Upper Arm] 80/46 L Pulse Oximetry 94 95 95 Oxygen Delivery Me thod Nasal Cannula Nasal Cannula Nasal Cannula Oxygen Flow Rate 2 2 2 03/21/24 20:00 03/21/24 20:02 03/21/24 20:10 Temperature Pulse Rate 87 85 88 Pulse Rate [Pulse Oximeter] Respiratory Rate Blood Pressure 88/50 L 73/43 L Blood Pressure [Le ft Arm] Blood Pressure [Le ft Radial Artery] Blood Pressure [Ri ght Upper Arm] Pulse Oximetry 95 95 97 Oxygen Delivery Me thod Nasal Cannula Nasal Cannula Nasal Cannula Oxygen Flow Rate 2 2 2 03/21/24 20:11 03/21/24 20:15 03/21/24 20:17 Temperature Pulse Rate 86 88 86 Pulse Rate [Pulse Oximeter] Respiratory Rate Blood Pressure 88/45 L 84/42 L Blood Pressure [Le ft Arm] Blood Pressure [Le ft Radial Artery] Blood Pressure [Ri ght Upper Arm] Pulse Oximetry 96 93 94 Oxygen Delivery Me thod Nasal Cannula Nasal Cannula Nasal Cannula Oxygen Flow Rate 2 1 1 03/21/24 20:22 03/21/24 20:30 03/21/24 20:32 Temperature Pulse Rate 89 88 87 Pulse Rate [Pulse Oximeter] Respiratory Rate Blood Pressure 91/47 L 75/44 L Blood Pressure [Le ft Arm] Blood Pressure [Le ft Radial Artery] Blood Pressure [Ri ght Upper Arm] Pulse Oximetry 94 94 94 Oxygen Delivery Me thod Nasal Cannula Nasal Cannula Nasal Cannula Oxygen Flow Rate 1 1 1 03/21/24 20:34 03/21/24 20:42 03/21/24 20:45 Temperature Pulse Rate 85 87 89 Pulse Rate [Pulse Oximeter] Respiratory Rate Blood Pressure 97/45 L 104/52 L Blood Pressure [Le ft Arm] Blood Pressure [Le ft Radial Artery] Blood Pressure [Ri ght Upper Arm] Pulse Oximetry 94 92 93 Oxygen Delivery Me thod Nasal Cannula Nasal Cannula Nasal Cannula Oxygen Flow Rate 1 1 1 03/21/24 20:52 03/22/24 02:43 03/22/24 04:04 Temperature Pulse Rate 88 Pulse Rate [Pulse Oximeter] Respiratory Rate 24 Blood Pressure 105/53 L Blood Pressure [Le ft Arm] Blood Pressure [Le ft Radial Artery] Blood Pressure [Ri ght Upper Arm] Pulse Oximetry 93 93 92 Oxygen Delivery Me thod Nasal Cannula Nasal Cannula Oxygen Flow Rate 1 1 03/22/24 04:06 03/22/24 04:47 03/22/24 08:00 Temperature 98.2 F Pulse Rate Pulse Rate [Pulse Oximeter] 86 74 Respiratory Rate 24 24 18 Blood Pressure Blood Pressure [Le ft Arm] Blood Pressure [Le ft Radial Artery] 93/59 L Blood Pressure [Ri ght Upper Arm] Pulse Oximetry 93 93 Oxygen Delivery Me thod Nasal Cannula Nasal Cannula Oxygen Flow Rate 1 1 03/22/24 08:00 03/22/24 11:00 Temperature 97.8 F 98.1 F Pulse Rate Pulse Rate [Pulse Oximeter] 74 76 Respiratory Rate 18 18 Blood Pressure Blood Pressure [Le ft Arm] 111/68 Blood Pressure [Le ft Radial Artery] 134/76 Blood Pressure [Ri ght Upper Arm] Pulse Oximetry 94 92 Oxygen Delivery Me thod Room Air Room Air Oxygen Flow Rate Documenting provider has reviewed patient's vital signs: yes Labs Labs: Short CBC 03/21/24 03/22/24 Range/Units 19:45 06:15 WBC 18.61 H 19.25 H (4.50-11.00) K/uL Hgb 9.3 L 9.0 L (12.0-16.0) gm/dL Hct 30.7 L 30.6 L (33.0-51.0) % Plt Count 279 267 (140-440) K/uL BMP 03/21/24 03/22/24 19:45 06:15 Sodium 137 140 Potassium 3.7 3.6 Chloride 103 109 Carbon Dioxide 31 25 BUN 35 H 31 H Creatinine 0.8 0.6 Glucose 117 H 99 Calcium 7.9 L 7.3 L Liver Function 03/21/24 03/22/24 Range/Units 19:45 06:15 Total Bilirubin 0.7 0.5 (0.1-1.5) mg/dL Direct Bilirubin 0.5 0.5 (0.0-0.5) mg/dL GGT 328 H (8-55) U/L AST 50 H 46 H (12-35) U/L ALT 26 36 H (4-35) U/L Alkaline Phosphatase 413 H 358 H (40-150) U/L Albumin 2.7 L 2.7 L (3.3-5.0) g/dL Urine 03/21/24 Range/Units 20:14 Urine Color Yellow (Yellow) Urine Appearance Cloudy A (Clear) Urine pH 5.0 (5.0-8.5) Ur Specific [place] 1.020 (1.000-1.030) Urine Protein Trace A (Negative) Urine Glucose (UA) Negative (Negative) Assessment and Plan Assessment and plan (1) Osteomyelitis: Problem comment: -chronic; delayed healing. two wound vacs in place for right glut wounds, new wound noted on right glut in the last few weeks. 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 likely source is either urine or wound infection. ertapenem to cover initially. -I reviewed [facility] but could not locate blood or urine cultures from [facility] hospitalization -cultures drawn -IVF to support pressure, pt ok with pressors if needed. had a terrible experie nce with central line two weeks ago, would like PICC if needed. -no new imaging tonight; can pursue if clinical concern or intervention would be warranted. 03/22: Remains afebrile; BP improved most recent SBP in 130s. Blood and UCx pending; continue ertapenem; hold metoprolol and lasix Status: Acute (4) Pressure ulcer of coccygeal region, stage 4: Status: Acute (5) Type 2 diabetes mellitus: Problem comment: 03/07/24 A1C 6.6% @ [facility] Status: Acute Plan new (present on admission) right superior buttock wound concerning for stable abscess, or possible fistula. due to complexity of wound contours and tissue irregularities it is difficult to fully to discern this at this time. Wound tracks inferiorly 10cm before tracking anteriorly an additional 2cm, it d oes not appear to tunnel or connect to any of the known open wounds of the coccyx or right ischial tuberosity. Updated wound culture collected by this television script writer. updated hospitalist team with recommend pelvic CT. Spoke with General surgery/on-call surgeon, discussed case. General surgeon will wait for CT to be completed to review and determine if surgical intervention is needed. At patient's wound center appointment on 03/19/24 care goals were discussed. Patient was asked if she would like to pursue a palliative approach to her wound healing. Revisited that with patient today, she said at this time she would like to return home, to live with her daughter and would like to pursue healing of her wounds. Wound care plan at this time: * Antibiotic therapy to continue to be managed by the hospitalist team, updated wound culture collected today, results pending. * Recommend inpatient Infectious Disease consult. Patient has been unable to see infectious disease in the outpatient setting due to transportation barrier. * Hold home woundvac. Awaiting arrival of a hospital wound VAC, hopeful it will be delivered tomorrow. * Wet-toDry: Pack wounds with Vashe soak Kerlix, cover with ABD secure with tape, change once daily. Continue to focus on offloading efforts, following unit policy. CT findings reviewed with Dr. Caro. Dr. Caro will plan to see patient and her wounds tomorrow AM. Wound services will defer further management of wounds to General surgery. Wound services thanks the hospitalist team for the referral, and will available as needed. Total Time Spent Total Time Spent: 60 Procedures Additional Procedures Additional Procedure Details: patient gave verbal consent. beside procedure. Patient tolerated well. mechanical debridement performed to all sacral/buttock ulcerations. selective sharp debridement with forceps to remove epidermis, dermis, slough, biofilm, fibrin/exudate, and necrotic fascia removed from coccyx and newest wound to right superior buttock.
--- NOTE | 2024-03-22 19:23 | PC.NURSE ---
Nursing Care Hours: [id number] Pt this shift calm and cooperative, alert and oriented. Pain 8/10 treated per eMAR. VSS. Repositioned every 2-3 hours, off loading R side glute. Wound consult at bedside, DC wound vac and wet to dry packed the wounds. CT scan performed. Cristobal patent, draining medium yellow and red tinged with sediment. Sm BM. Pt refusing the IS because she doesn't like it but is using Aerobika. Refusing zinc because she states she takes with Vit C and it is not ordered here.
[2024-03-22] MEDS: ERTAPENEM 1 GM in 0.9 % SODIUM CHLORIDE Mini-bag 100 ML IVPB (19:42)
--- NOTE | 2024-03-22 20:24 | PC.NURSE ---
Draw Frame Tender had to change top ABD dressing to R buttock wounds due to moderate amount of serosanguinous drainage noted. No odor noted to drainage.
[2024-03-23] VITALS (7 sets, daily range): BP systolic 110–148; BP diastolic 52–91; PULSE 70–99; RESP 14–18; TEMP 35.9–36.8; O2SAT 91–93
[2024-03-23] MEDS: OXYCODONE 5 MG TABLET 7.5 MG PO ×4 (00:26→21:13)
[2024-03-23] MEDS: 0.9 % SODIUM CHLORIDE 1000 ml 1,000 ML 125 ML IV (02:26)
[2024-03-23 06:38] LABS: Basophils Percent Auto 0.1 % (0.0-3.0); Eosinophils Percent Auto 1.5 % (0.0-7.0); Hematocrit 31.2 % (33.0-51.0); Hemoglobin* 9.2 gm/dL (12.0-16.0); Immature Granulocytes Pct Auto 0.9 %; Lymphocytes Percent Auto 13.4 % (20-44); Mean Corpuscular HGB Conc 30 gm/dL (32-36); Mean Corpuscular Hemoglobin 26 pg (26-34); Mean Corpuscular Volume 89 fL (80-100); Monocytes Percent Auto 6.3 % (0.0-11.0); Neutrophils Percent Auto 77.8 % (42.0-72.0); Platelet Count* 299 K/uL (140-440); RDW Coefficient of Variation % 18.1 % (11.5-15.5); Red Blood Count 3.51 m/uL (4.00-5.20); White Blood Count* 14.87 K/uL (4.50-11.00)
--- NOTE | 2024-03-23 06:47 | PC.NURSE ---
End of shift note [id number]: Pt alert & oriented x 4 and able to make needs known. She wears home Bipap at [facility] though has otherwise been on RA. VSS and pt has been afebrile. Cristobal catheter in place with dark ankit urine noted. Staff encouraged fluids last evening upon noting this observation. Pt requires assist of 2 with repositioning in bed and assistance to help offload pressure to R buttock/coccyx where wounds are located. Pt incontinent of stool. IVs to R foot and R FA patent with NS running at 125 mL/hr through IV to R FA. Process Control Technician had to change ABD dressings to R buttock/coccyx wound twice throughout the shift due to noting moderate amount of serosanguinous drainage to old dressings. Dressings also frequently become soiled due to pt's incontinent stool as well. PRN Oxycodone administered twice throughout the shift for pt report of ?8/10??pain to back and bilateral shoulders with rest encouraged and repositioning performed. Pt NPO at midnight per order. She requested to take Potassium capsules in applesauce last evening. ?
[2024-03-23 06:49] LABS: Slide Review Reflex No
[2024-03-23 06:53] LABS: Albumin* 2.8 g/dL (3.3-5.0); Chloride* 113 mmol/L (96-114)
[2024-03-23 06:54] LABS: Potassium* 3.8 mmol/L (3.6-5.1); Sodium* 141 mmol/L (135-149)
[2024-03-23 06:56] LABS: Anion Gap 5 mEq/L (7-15); Aspartate Amino Transferase* 30 U/L (12-35); Bilirubin Total* 0.5 mg/dL (0.1-1.5); Blood Urea Nitrogen* 28 mg/dL (7-30); Carbon Dioxide* 23 mmol/L (20-32); Creatinine* 0.5 mg/dL (0.5-1.5); Est. Creatinine Clearance* 33.84; Estimated Glomerular Filt Rate 97 ml/min
[2024-03-23 06:57] LABS: Alanine Aminotransferase* 29 U/L (4-35); Alkaline Phosphatase* 267 U/L (40-150); Calcium* 7.8 mg/dL (8.4-10.6); Glucose* 104 mg/dL (60-115); Magnesium* 2.2 mg/dL (1.5-2.6); Phosphorus* 3.6 mg/dL (2.5-4.5)
[2024-03-23] MEDS: ACETAMINOPHEN 325 MG TABLET PO ×2 (08:21→17:11)
[2024-03-23] MEDS: predniSONE 5 MG TABLET 10 MG PO (08:22)
[2024-03-23] MEDS: GABAPENTIN 300 MG CAPSULE PO ×3 (08:22→21:12)
[2024-03-23] MEDS: METOPROLOL SUCCINATE (XL) 100 MG TAB PO (08:22)
[2024-03-23] MEDS: POTASSIUM CHLORIDE 10 MEQ CAPSULE ER 20 MEQ PO ×2 (08:22→21:13)
--- NOTE | 2024-03-23 10:33 | CRLHL7_ITS ---
For Patients: As a result of the Cures Act, medical imaging exams and procedure reports are released immediately into your electronic medical record. You may view this report before your referring provider. If you have questions, please contact your health care provider. INDICATION: Decubitus ulcers; new sacral osteomyelitis. COMPARISON: MRI of the pelvis January 07, 2022; CT abdomen pelvis 08/27/2023, January 16, 2024 and March 22, 2024. TECHNIQUE: MR of the pelvis without and with intravenous contrast; precontrast T1 and T2 weighted imaging; T2 haste imaging; postcontrast imaging in axial, coronal and sagittal projections; 15 cc dotarem contrast was injected. Findings: Three decubitus ulcers identified on the right extending to the right ischial tuberosity, to the right perineum extending into the right pararectal location and to the sacrum. There is evidence of osteomyelitis involving the right ischial tuberosity . Evidence of osteomyelitis involving the sacrococcygeal junction. Extensive inflammatory changes identified in the musculature of the right upper thigh and perineum without any drainable abscess. Indwelling Cristobal catheter identified. Impression: 1. Evidence of osteomyelitis involving the right ischial tuberosity. 2. Osteomyelitis involving the sacrococcygeal junction. 3. Multiple decubitus ulcers to the right of midline as described above. 4. No drainable pelvic abscess. Dictated by Abbey Kerns MD @ 03/25/2024 7:37:37 AM (Electronically Signed)
--- NOTE | 2024-03-23 10:34 | P.IMPN_ITS ---
Progress Note: A&P Assessment and plan (1) Sepsis associated hypotension: Problem details: -sepsis criteria with elevated WBC, infection and SBP <90. likely source is either urine or wound infection. ertapenem to cover initially. -I reviewed [facility] but could not locate blood or urine cultures from [facility] hospitalization -cultures drawn -IVF to support pressure, pt ok with pressors if needed. had a terrible experience with central line two weeks ago, would like PICC if needed. -no new imaging tonight; can pursue if clinical concern or intervention would be warranted. 03/22: Remains afebrile; BP improved most recent SBP in 130s. Blood and UCx pending; continue ertapenem; hold metoprolol and lasix 03/23: MRI pelvis may consider ID consult if evidence of new osteomyeltis of sacram; continue ertapenem CT Pelvis Three decubitus ulcers are identified, with new extension to the sacrum. Underlying chronic osteomyelitis in the right ischial tuberosity as well as probably within the sacrum as well. Superimposed acute osteomyelitis not entirely excluded. The additional ulceration extends from the gluteal surface to the right paramidline perirectal soft tissues. 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 two wound vacs in place for right glut wounds, new wound noted on right glut in the last few weeks. -wound long term health and wound care care for her - remote history of MRSA in wound, recent MRSA swabs negative - has been treated previously with surgical debridement and multiple courses of antibiotics 03/22: wound care to assess today; if patient becomes hemodynamically unstable would add vancomycin pending culture data Status: Acute (7) COPD (chronic obstructive pulmonary disease): Problem details: - chronic overlay with central sleep apnea and hypoventilation given long standing paraplegia - previously has used BIPAP during hospital stays Status: Acute (8) Neurogenic bladder: Problem details: - chronic indwelling catheter Status: Chronic (9) Chronic, continuous use of opioids: Problem details: - on Oxycodone 7.5 mg QID as an outpatient, continue to assess and treat as needed. Increasing risk for worsening hypoxia and hypoventilation Status: Acute (10) Sleep apnea: Problem details: - Clinically suspected, no previous evaluation or sleep study - encourage postoperative pulmonary hygiene, Aerobika Status: Suspected Subjective Date Seen: 03/23/24 Interval history: No acute events overnight underwent local wound care at bedside no evidence of necrotic tissue afebrile this morning CT Pelvis 1. Three decubitus ulcers are identified, with new extension to the sacrum. Underlying chronic osteomyelitis in the right ischial tuberosity as well as probably within the sacrum as well. Superimposed acute osteomyelitis not entirely excluded. The additional ulceration extends from the gluteal surface to the right paramidline perirectal soft tissues. 2. Moderate right hydroureteronephrosis with tapering distally in the ureter and no obstructing lesion identified. Nonobstructing stones in the right renal pelvis, largest measuring 12 millimeters. 3. Status post cholecystectomy. 4. Colonic diverticuli without evidence of diverticulitis. 5. Delacruz catheter in-situ. Bladder is collapsed. Exam Narrative: Exam Narrative: Gen: no acute distress HEENT: NCAT EOMI mmm CV: RRR normal s1 s2 Lungs: CTAB Abd: Soft,nt, nd Neuro: Alert, oriented, at baseline state Psych: appropriate affect Skin; Warm, dry no rash on face MSK: Decubitus ulcer wound packing completed by surgery i dont see evidence of superficial necrotic tissue Const: Vital Signs, click to edit/add: Vital Signs - 24 hr 03/22/24 11:00 03/22/24 15:00 03/22/24 15:00 Temperature 98.1 F Pulse Rate [Pulse Oximeter] 76 76 72 Respiratory Rate 18 18 18 Blood Pressure [Le ft Arm] 111/68 120/71 Pulse Oximetry 92 92 Oxygen Delivery Me thod Room Air Room Air 03/22/24 19:45 03/22/24 23:00 03/22/24 23:00 Temperature 96.9 F L 96.9 F L Pulse Rate [Pulse Oximeter] 88 91 91 Respiratory Rate 18 18 18 Blood Pressure [Le ft Arm] 127/78 134/76 Pulse Oximetry 91 91 Oxygen Delivery Me thod Room Air Room Air 03/23/24 02:51 03/23/24 03:41 03/23/24 06:50 Temperature 97.2 F L 96.9 F L Pulse Rate [Pulse Oximeter] 89 99 Respiratory Rate 18 18 Blood Pressure [Le ft Arm] 148/87 H 146/91 H Pulse Oximetry 91 91 92 Oxygen Delivery Me thod Room Air Room Air Labs Labs: Laboratory Results - last 24 hr 03/23/24 06:22 WBC 14.87 H RBC 3.51 L Hgb 9.2 L Hct 31.2 L MCV 89 MCH 26 MCHC 30 L RDW Coeff of Lynette 18.1 H Plt Count 299 Neut % (Auto) 77.8 H Lymph % (Auto) 13.4 L Gaines % (Auto) 6.3 Eos % (Auto) 1.5 Baso % (Auto) 0.1 Neut # (Auto) 11.60 H Lymph # (Auto) 2.00 Gaines # (Auto) 0.90 Eos # (Auto) 0.20 Baso # (Auto) 0.00 Abs Immat Gran (auto) 0.10 Imm/Tot Granulo (auto) 0.9 Sodium 141 Potassium 3.8 Chloride 113 Carbon Dioxide 23 Anion Gap 5 L BUN 28 Creatinine 0.5 Estimated Creat Clear 33.84 Estimated GFR 97 Glucose 104 Calcium 7.8 L Phosphorus 3.6 Magnesium 2.2 Total Bilirubin 0.5 AST 30 ALT 29 Alkaline Phosphatase 267 H Total Protein 5.0 L Albumin 2.8 L
[2024-03-23] MEDS: SODIUM CHLORIDE 0.9 % (FLUSH) 10 ML SYRINGE 5 ML IVF ×3 (10:43→20:10)
--- NOTE | 2024-03-23 11:07 | PM.GSCN ---
History of Present Illness Consult details Date Seen: 03/23/24 Consult date: 03/23/24 Narrative: patient is a 78-year-old female with a history of multiple stage IV pressure ulcers to the sacral/ buttock region. 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 [facility] initially presented to the hospital with a wound VAC in place. This was removed and patient was placed in wet to dry dressings. Wound was consulted, with recommendations for surgery to evaluate. Patient is currently admitted to the hospitalist service for sepsis. She did have a recent hospitalization at [facility], for UTI sepsis. She was being managed at home with oral Levaquin before presenting to the emergency department earlier this week. She is currently having pain at her wounds, requiring narcotic pain medicine. workup during this hospitalization did include a CT scan of the abdomen/pelvis, which demonstrated anasarca, a sacral decubitus ulcer extending to the sacrum, right deep gluteal soft tissue tunneling and lower gluteal / upper thigh ulceration extending to the ischial tuberosity. There is evidence of chronic osteomyelitis, as well as a question of superimposed acute osteomyelitis of the sacrum. Patient has been on IV ertapenem, with down trending leukocytosis and afebrile since admission. Review of Systems Status of ROS: Reports: 6 or more systems reviewed and unremarkable except as noted in History and below [facility] Medical History (Updated 03/23/24 @ 11:18 by Sobia Caro MD) 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, stage 4 ?L89.44 - Pressure ulcer of contiguous site of back, buttock and hip, stage 4 (ICD-10) Pressure ulcer ?L89.90 - Pressure ulcer of unspecified site, unspecified stage (ICD-10) Osteomyelitis ?M86.9 - Osteomyelitis, unspecified (ICD-10) Anemia ?D64.9 - Anemia, unspecified (ICD-10) Diarrhea ?R19.7 - Diarrhea, unspecified (ICD-10) Intravenous infiltration ?T80.1XXA - Vascular complications following infusion, transfusion and therapeutic injection, initial encounter (ICD-10) Neurogenic bladder ?N31.9 - Neuromuscular dysfunction of bladder, unspecified (ICD-10) Chronic, continuous use of opioids ?F11.90 - Opioid use, unspecified, uncomplicated (ICD-10) Rheumatoid arthritis ?M06.9 - Rheumatoid arthritis, unspecified (ICD-10) HTN (hypertension) ?I10 - Essential (primary) hypertension (ICD-10) Cristobal catheter in place ?Z97.8 - Presence of other specified devices (ICD-10) Sleep apnea ?G47.30 - Sleep apnea, unspecified (ICD-10) Paraplegia ?G82.20 - Paraplegia, unspecified (ICD-10) Acute on chronic anemia ?D64.9 - Anemia, unspecified (ICD-10) Paraplegia ?G82.20 - Paraplegia, unspecified (ICD-10) Chronic pain ?G89.29 - Other chronic pain (ICD-10) Tubular adenoma of colon ?D12.6 - Benign neoplasm of colon, unspecified (ICD-10) 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 - Acute transverse myelitis in demyelinating disease of central nervous system (ICD-10) Septic shock ?A41.9 - Sepsis, unspecified organism (ICD-10) ?R65.21 - Severe sepsis with septic shock (ICD-10) Recurrent urinary tract infection ?N39.0 - Urinary tract infection, site not specified (ICD-10) Osteoporosis ?M81.0 - Age-related osteoporosis without current pathological fracture (ICD-10) History of methicillin resistant Staphylococcus aureus infection ?Z86.14 - Personal history of Methicillin resistant Staphylococcus aureus infection (ICD-10) Surgical History Status post debridement ?Z98.890 - Other specified postprocedural states (ICD-10) Social History Narrative: Mary has recently been living at [facility], daughter Elvi (MDM if needed) is hoping to bring her home with full time babysitter caregiving. has cognitive impairment. At this time (12/08/23), she is requesting DNR/DNI status. Nonsmoker, no ETOH use. What is your current living situation?: I presently have a place to live Problems where you live: no known problems Problems where you live details: n/a In the past 12 months, utilities in danger of being shut off: no In past 12 months, lack of transportation kept you from medical appts, meetings, work, or getting things needed for daily living: no In the past 12 mos, have been you worried that your food would run out before you had money to buy more?: never true In the past 12 mos, the food you bought just didn't last and you didn't have money to buy more?: never true Highest level of school completed/degree received: Bachelor's degree Smoking Status: Never smoker Do you use any of these nicotine containing products: None Second hand tobacco smoke exposure: No How often do you have a drink containing alcohol: never How often do you have six or more drinks on one occasion: Never AUDIT-C Alcohol total score: 0 Non-prescribed substance use: denies use Caffeine: Yes (1 cup coffee/day) How often does anyone, including family, friends and others, physically hurt you: never How often does anyone, including family, friends and others, insult or talk down to you: never How often does anyone, including family, friends and others, threaten you with harm: never How often does anyone, including family, friends and others, scream or curse at you: never Little interest or pleasure in doing things: several days Feeling down, depressed, or hopeless: several days service: No Meds Home Medications and Allergies Home Medications ?Medication ?Instructions ?Recorded ?Confirmed ?Type metoprolol succinate 100 mg 100 mg PO DAILY 03/22/24 03/22/24 History tablet,extended release 24 hr multivitamin with folic acid 400 1 tab PO DAILY 03/22/24 03/22/24 History mcg tablet (Daily-Charles (with folic acid)) Allergies Allergy/AdvReac Type Severity Reaction Status Date / Time piperacillin Allergy Intermediate Rash Verified 01/16/24 05:11 sulfamethoxazole Allergy Intermediate Hives Verified 01/23/24 10:48 [From Bactrim] tazobactam Allergy Intermediate Rash Verified 01/16/24 05:11 trimethoprim [From Bactrim] Allergy Intermediate Hives Verified 01/23/24 10:48 vancomycin Allergy Unknown Anaphylactic Verified 01/16/24 05:11 shock with this medication. Also residential demario Exam Narrative: Exam Narrative: General: Alert and oriented, no acute distress. Nontoxic respiratory: Maintained on room air CV: Well perfused, regular rhythm and rate skin: Coccyx wound measuring approximately 4 x 3 x 2 cm. 10% of the wound bed with some fibrinous exudate. Exposed bone. Minimal granulation tissue. No evidence of necrotic tissue. Right ischial tuberosity measuring approximately 2 x 2 x 3 cm. This does tunnel to the bone. 30% slough. Some granulation tissue. Bone is palpable but not visualized. Right superior buttock wound with a 1 cm opening. extensive tunneling towards the rectum. No undrained fluid collection. No evidence of necrotic tissue. Const: Vital Signs, click to edit/add: Vital Signs - 24 hr 03/22/24 15:00 03/22/24 15:00 03/22/24 19:45 Temperature 96.9 F L Pulse Rate [Pulse Oximeter] 76 72 88 Respiratory Rate 18 18 18 Blood Pressure [Le ft Arm] 120/71 127/78 Pulse Oximetry 92 91 Oxygen Delivery Me thod Room Air Room Air 03/22/24 23:00 03/22/24 23:00 03/23/24 02:51 Temperature 96.9 F L 97.2 F L Pulse Rate [Pulse Oximeter] 91 91 89 Respiratory Rate 18 18 18 Blood Pressure [Le ft Arm] 134/76 148/87 H Pulse Oximetry 91 91 Oxygen Delivery Or thod Room Air Room Air 03/23/24 03:41 03/23/24 06:50 Temperature 96.9 F L Pulse Rate [Pulse Oximeter] 99 Respiratory Rate 18 Blood Pressure [Le ft Arm] 146/91 H Pulse Oximetry 91 92 Oxygen Delivery Or thod Room Air Results Labs Labs: Abnormal lab results 03/23/24 Range/Units 06:22 WBC 14.87 H (4.50-11.00) K/uL RBC 3.51 L (4.00-5.20) m/uL Hgb 9.2 L (12.0-16.0) gm/dL Hct 31.2 L (33.0-51.0) % MCHC 30 L (32-36) gm/dL RDW Coeff of Lyntete 18.1 H (11.5-15.5) % Neut % (Auto) 77.8 H (42.0-72.0) % Lymph % (Auto) 13.4 L (20-44) % Neut # (Auto) 11.60 H (1.7-7.0) K/uL Anion Gap 5 L (7-15) mEq/L Calcium 7.8 L (8.4-10.6) mg/dL Alkaline Phosphatase 267 H (40-150) U/L Total Protein 5.0 L (6.0-8.3) g/dL Albumin 2.8 L (3.3-5.0) g/dL Diabetes panel 03/23/24 Range/Units 06:22 Sodium 141 (135-149) mmol/L Potassium 3.8 (3.6-5.1) mmol/L Chloride 113 (96-114) mmol/L Carbon Dioxide 23 (20-32) mmol/L BUN 28 (7-30) mg/dL Creatinine 0.5 (0.5-1.5) mg/dL Glucose 104 (60-115) mg/dL Calcium 7.8 L (8.4-10.6) mg/dL AST 30 (12-35) U/L ALT 29 (4-35) U/L Alkaline Phosphatase 267 H (40-150) U/L Total Protein 5.0 L (6.0-8.3) g/dL Albumin 2.8 L (3.3-5.0) g/dL Calcium panel 03/23/24 Range/Units 06:22 Calcium 7.8 L (8.4-10.6) mg/dL Phosphorus 3.6 (2.5-4.5) mg/dL Albumin 2.8 L (3.3-5.0) g/dL Pituitary panel 03/23/24 Range/Units 06:22 Sodium 141 (135-149) mmol/L Potassium 3.8 (3.6-5.1) mmol/L Chloride 113 (96-114) mmol/L Carbon Dioxide 23 (20-32) mmol/L BUN 28 (7-30) mg/dL Creatinine 0.5 (0.5-1.5) mg/dL Glucose 104 (60-115) mg/dL Calcium 7.8 L (8.4-10.6) mg/dL Adrenal panel 03/23/24 Range/Units 06:22 Sodium 141 (135-149) mmol/L Potassium 3.8 (3.6-5.1) mmol/L Chloride 113 (96-114) mmol/L Carbon Dioxide 23 (20-32) mmol/L BUN 28 (7-30) mg/dL Creatinine 0.5 (0.5-1.5) mg/dL Glucose 104 (60-115) mg/dL Calcium 7.8 L (8.4-10.6) mg/dL Total Bilirubin 0.5 (0.1-1.5) mg/dL AST 30 (12-35) U/L ALT 29 (4-35) U/L Alkaline Phosphatase 267 H (40-150) U/L Total Protein 5.0 L (6.0-8.3) g/dL Albumin 2.8 L (3.3-5.0) g/dL All other labs normal. 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 No evidence of necrotic tissue and no need for surgical debridement at this time. The right buttock wound opening was extended at the bedside, to allow for adequate packing. Recommend that all wounds be packed wet-to-dry with Vashe soaked Kerlix, 4 x 4 and outer ABD. Change twice daily or more often as needed for soiling. Will continue to follow-up patient while she remains inpatient. - Okay for diet - b.i.d. dressing changes while inpatient, Vashe soaked Kerlix, outer 4 x 4 and ABD.
--- NOTE | 2024-03-23 18:50 | PC.NURSE ---
End of Shift ([id number]): Patient pleasant and cooperative. Patient vitally stable, lungs clear, BS WNL, IV SL and intact. Patient bedrest/chairfast with repositioning. Patient rates generalized body pain 7-8/10. Patient requested pain medication prior to MRI, tylenol and 7.5 of oxycodone given. Patient currently filling out paperwork for healthcare directives with family. Uneventful shift as patient napped then went to MRI.
[2024-03-23] MEDS: ERTAPENEM 1 GM in 0.9 % SODIUM CHLORIDE Mini-bag 100 ML IVPB (20:06)
[2024-03-23] MEDS: ENOXAPARIN 40 MG/0.4 ML INJ SUBCUT (21:12)
[2024-03-24] MEDS: OXYCODONE 5 MG TABLET 7.5 MG PO ×2 (02:29→09:22)
[2024-03-24 02:42] VITALS: BP 158/73; PULSE 86; RESP 14; TEMP 36.3; O2SAT 91
[2024-03-24 06:23] LABS: Hematocrit 33.4 % (33.0-51.0); Hemoglobin* 9.7 gm/dL (12.0-16.0); Mean Corpuscular HGB Conc 29 gm/dL (32-36); Mean Corpuscular Hemoglobin 26 pg (26-34); Mean Corpuscular Volume 89 fL (80-100); Platelet Count* 308 K/uL (140-440); Red Blood Count 3.74 m/uL (4.00-5.20); White Blood Count* 16.58 K/uL (4.50-11.00)
[2024-03-24 06:30] LABS: Slide Review Reflex No
[2024-03-24 06:42] LABS: Chloride* 114 mmol/L (96-114); Potassium* 4.8 mmol/L (3.6-5.1); Sodium* 142 mmol/L (135-149)
[2024-03-24 06:44] LABS: Creatinine* 0.4 mg/dL (0.5-1.5); Est. Creatinine Clearance* 33.84; Estimated Glomerular Filt Rate 102 ml/min
[2024-03-24 06:45] LABS: Anion Gap 6 mEq/L (7-15); Blood Urea Nitrogen* 28 mg/dL (7-30); Calcium* 8.7 mg/dL (8.4-10.6); Carbon Dioxide* 22 mmol/L (20-32); Glucose* 103 mg/dL (60-115)
[2024-03-24 06:48] LABS: C Reactive Protein* 6.2 mg/dL (0.5-1.0)
--- NOTE | 2024-03-24 06:57 | PC.NURSE ---
End of shift note [id number]: Pt alert & oriented x 4 and able to make needs known. VSS and pt has been afebrile. Wound care completed to coccyx/buttock wounds last evening with moderate amount of serosanguinous drainage observed to old dressing materials upon removal. Two doses of PRN Oxycodone given for pt c/o 8/10 pain to bilateral shoulders and generalized pain throughout the shift with rest encouraged and repositioning performed. Pt requires assist of 2 with repositioning in bed and has Cristobal catheter in place. Staff had to change pt's position in order for catheter to drain properly. Urine also noted to have sediment present and dark ankit in color. Pt wears home Bipap at [facility]. IV to R wrist noted to be leaking when attempting to flush. Grease Rack Worker then removed IV from site with catheter tip intact. IV to R foot patent and SL. ?
[2024-03-24 07:00] VITALS: BP 129/80; PULSE 96; RESP 14; TEMP 36.4; O2SAT 91
[2024-03-24] MEDS: POTASSIUM CHLORIDE 10 MEQ CAPSULE ER 20 MEQ PO (09:23)
[2024-03-24] MEDS: predniSONE 5 MG TABLET 10 MG PO (09:23)
[2024-03-24] MEDS: SODIUM CHLORIDE 0.9 % (FLUSH) 10 ML SYRINGE 5 ML IVF (09:23)
[2024-03-24] MEDS: METOPROLOL SUCCINATE (XL) 100 MG TAB PO (09:23)
[2024-03-24] MEDS: GABAPENTIN 300 MG CAPSULE PO (09:23)
[2024-03-24 10:08] LABS: Creatine Kinase* 23 U/L (41-117)
[2024-03-24 10:36] LABS: Erythrocyte SedimentationRate* 28 mm/hr (2-20)
[2024-03-24 11:00] VITALS: BP 162/93; PULSE 91; RESP 14; TEMP 36.7; O2SAT 99
--- NOTE | 2024-03-24 11:09 | PM.DS1 ---
DS: Providers Provider Date Seen: 03/24/24 Date of admission: 03/21/24 22:10 Primary care physician: Flo Mckeon MD Admitting Clinician: Melvi Bear MD Consults: 03/21/24 22:05 Consult to Wound Care [CONS] Routine Comment: Consulting Provider: Melvi Bear 03/21/24 22:10 Consult to Weaver Dobby Loom [CONS] Routine Comment: Reason for Consult:: Social Service Consult 03/22/24 12:46 Consult to Physician [CONS] Routine Comment: [place] will speak to surgeon for consult on wound Consulting Provider: General Surgery, [facility] Has provider been notified: Yes 03/24/24 09:14 Consult to Infectious Diseases [CONS] Routine Comment: osteomyelitis Consulting Provider: Infectious Disease Connect Consult priority: Routine Has provider been notified: No Call back required?: No Attending Physician on discharge: Valdo Fish MD Date of Discharge: 03/24/24 DS: Diagnosis Discharge Diagnosis (1) Osteomyelitis: Status: Acute Problem details: Acute on chronic -chronic; delayed healing. two wound vacs in place for right glut wounds, new wound noted on right glut in the last few weeks. -wound longterm health and wound care care for her - remote history of MRSA in wound, recent MRSA swabs negative - has been treated previously with surgical debridement and multiple courses of antibiotics 03/22: wound care to assess today; if patient becomes hemodynamically unstable would add vancomycin pending culture data 03/24: MRI Results showing 1) Worsened Decubitus Ulcer extending to the Right ischial Tuberosity with new osteomyelitis of the tuberosity 2) New right gluteal decubitus ulcer with tract extending into the right perirectal region 3) New midline sacral decubitus ulcer extending to the bone and probable new small area of sacral osteomyelitis Case discussed with ID; Daptomycin added to Ertapenem; recommend transfer to [facility] center for ID consult; anticipated bone bx; anticipated Plastic surgery consult; may need to get colorectal surgery involved. Patient is being transferred to [facility] and Dr. Guerra has graciously accepted patient for transfer (2) Sepsis associated hypotension: Status: Acute Problem details: -sepsis criteria with elevated WBC, infection and SBP <90. likely source is either urine or wound infection. ertapenem to cover initially. -I reviewed [facility] but could not locate blood or urine cultures from [facility] hospitalization -cultures drawn -IVF to support pressure, pt ok with pressors if needed. had a terrible experience with central line two weeks ago, would like PICC if needed. -no new imaging tonight; can pursue if clinical concern or intervention would be warranted. 03/22: Remains afebrile; BP improved most recent SBP in 130s. Blood and UCx pending; continue ertapenem; hold metoprolol and lasix 03/23: MRI pelvis may consider ID consult if evidence of new osteomyeltis of sacram; continue ertapenem CT Pelvis Three decubitus ulcers are identified, with new extension to the sacrum. Underlying chronic osteomyelitis in the right ischial tuberosity as well as probably within the sacrum as well. Superimposed acute osteomyelitis not entirely excluded. The additional ulceration extends from the gluteal surface to the right paramidline perirectal soft tissues. 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 Increasing risk for worsening hypoxia and hypoventilation (8) Type 2 diabetes mellitus: Status: Acute Problem details: 03/07/24 A1C 6.6% @ [facility] (9) Sleep apnea: Status: Suspected Problem details: - Clinically suspected, no previous evaluation or sleep study - encourage postoperative pulmonary hygiene, Aerobika (10) CO2 retention: Status: Acute Problem details: - long history of severe CO2 retention, cannot receive supplemental oxygen without BiPAP, RT aware and following - using BIPAP at night DS: Summary Hospital Course Hospital Course: Chief Complaint: WEAKNESS, FEVER HPI: 78-year-old female with a complex medical history, including paraplegia secondary to transverse myelitis, chronic indwelling Cristobal catheter, rheumatoid arthritis on chronic prednisone therapy, and atrial fibrillation, presented with chills, weakness, and hypotension concerning for septic shock. We know Mary well. She was just hospitalized 03/06-03/14 at [facility] for septic shock, Ecoli UTI & bacteremia. IV rocephin to oral levaquin. She is still on Levaquin. She was stable the first few days home but felt a return of her weakness, chills and fever in the last 24 hours. She has chronic wounds of her right gluteus, coccyx and left foot that have been the source of sepsis for the last couple of years. Our wound care team has managed her both inpatient and outpatient. She currently has dressings on two of the wounds, wound vac on the right gluteus wound. Hospital Course the patient was treated with Ertapenem. Tele ID Consult completed 03/24 who recommended transfer for Bone Bx given new findings of new sacral osteomyelitis. Daptomycin added to ertapenem on 03/24. 03/24: MRI Results showing 1) Worsened Decubitus Ulcer extending to the Right ischial Tuberosity with new osteomyelitis of the tuberosity 2) New right gluteal decubitus ulcer with tract extending into the right perirectal region 3) New midline sacral decubitus ulcer extending to the bone and probable new small area of sacral osteomyelitis Case discussed with ID; Daptomycin added to Ertapenem; [facility]; anticipated bone bx; anticipated Plastic surgery consult; may need to get colorectal surgery involved. Patient is being transferred to [facility] and Dr. Guerra has graciously accepted patient for transfer Time Spent with Patient Time attestation: Total time spent providing and/or coordinating discharge services: Exam Narrative: Exam Narrative: Gen: no acute distress HEENT: NCAT EOMI mmm CV: RRR normal s1 s2 Lungs: CTAB Abd: Soft,nt, nd Neuro: Alert, oriented, at baseline state Psych: appropriate affect Findings from Surgery Skin: Coccyx wound with exposed bone. Some fibrinous exudate within wound bed, granulation tissue around edges of wound bed. No surrounding erythema or induration Right ischial tuberosity wound. Palpated underlying bone. Granulation tissue within wound bed. No significant amount of fibrinous exudate. No surrounding erythema or induration Right buttock wound with stool contaminated within wound bed. This does appear to tunnel and connect to the previously placed anal seton drain. Wound with irrigated with Vashe and debrided with a 4x4 gauze. No necrotic tissue. Seton drain remains in place. Multiple anal skin tags present. Const: Vital Signs, click to edit/add: Vital Signs - 24 hr 03/23/24 11:18 03/23/24 15:17 03/23/24 15:17 Temperature 98.2 F 97.9 F Pulse Rate [Pulse Oximeter] 88 70 70 Respiratory Rate 18 16 16 Blood Pressure [Le ft Arm] 130/82 Blood Pressure [Ri ght Arm] 110/52 L Pulse Oximetry 93 92 Oxygen Delivery Me thod Room Air Room Air Oxygen Flow Rate 03/23/24 19:00 03/23/24 22:43 03/23/24 22:43 Temperature 98.1 F 96.6 F L Pulse Rate [Pulse Oximeter] 89 89 89 Respiratory Rate 14 14 14 Blood Pressure [Le ft Arm] 122/73 140/82 H Blood Pressure [Ri ght Arm] Pulse Oximetry 92 91 Oxygen Delivery Me thod Room Air Room Air Oxygen Flow Rate 03/24/24 02:42 03/24/24 02:42 03/24/24 07:00 Temperature 97.3 F L Pulse Rate [Pulse Oximeter] 86 96 Respiratory Rate 14 14 Blood Pressure [Le ft Arm] Blood Pressure [Ri ght Arm] 158/73 H Pulse Oximetry 91 91 Oxygen Delivery Me thod Room Air Oxygen Flow Rate 03/24/24 07:00 Temperature 97.6 F Pulse Rate [Pulse Oximeter] 96 Respiratory Rate 14 Blood Pressure [Le ft Arm] 129/80 Blood Pressure [Ri ght Arm] Pulse Oximetry 91 Oxygen Delivery Me thod Room Air Oxygen Flow Rate 1 DS: Data Data Completed and Pending Completed studies during hospitalization: Procedures Assistance with Respiratory Ventilation, Greater than 96 Consecutive Hours, Continuous Positive Airway Pressure (08/28/23) Assistance with Respiratory Ventilation, Less than 24 Consecutive Hours, Continuous Positive Airway Pressure (12/08/23) Drainage of Anus, Open Approach, Diagnostic (08/28/23) Drainage of Rectum, Open Approach, Diagnostic (08/28/23) Excision of Buttock Subcutaneous Tissue and Fascia, Open Approach (01/16/24) Excision of Duodenum, Via Natural or Artificial Opening Endoscopic, Diagnostic (10/31/22) Excision of Right Pelvic Bone, Open Approach, Diagnostic (08/28/23) Excision of Right Upper Leg Subcutaneous Tissue and Fascia, Open Approach (10/31/22) Excision of Stomach, Pylorus, Via Natural or Artificial Opening Endoscopic, Diagnostic (10/31/22) Insertion of Infusion Device into Superior Vena Cava, Percutaneous Approach (12/08/23) Introduction of Other Anti-infective into Central Vein, Percutaneous Approach (12/08/23) Introduction of Other Gas into Respiratory Tract, Via Natural or Artificial Opening (01/15/23) Introduction of Other Therapeutic Substance into Respiratory Tract, Via Natural or Artificial Opening (01/16/24) Removal of Infusion Device from Great Vessel, External Approach (12/08/23) Transfusion of Nonautologous Red Blood Cells into Peripheral Vein, Percutaneous Approach (10/31/22) Ultrasonography of Superior Vena Cava, Guidance (12/08/23) Labs on day of discharge: Labs from last 24 hours 03/24/24 03/24/24 09:49 05:50 WBC 16.58 H RBC 3.74 L Hgb 9.7 L Hct 33.4 MCV 89 MCH 26 MCHC 29 L Plt Count 308 ESR 28 H Sodium 142 Potassium 4.8 Chloride 114 Carbon Dioxide 22 Anion Gap 6 L BUN 28 Creatinine 0.4 L Estimated Creat Clear 33.84 Estimated GFR 102 Glucose 103 Calcium 8.7 Total Creatine Kinase 23 L C-Reactive Protein 6.2 H Lab Acknowledgement Test Added Preliminary micro results at discharge 03/21/24 20:00 Blood Culture - Preliminary Blood NO GROWTH AFTER 48 HOURS 03/21/24 19:45 Blood Culture - Preliminary Blood NO GROWTH AFTER 48 HOURS 03/22/24 12:36 Wound Culture - Preliminary Buttock Culture in Progress Imaging MR - Other: Radiologist's impression: 03/24: MRI Results showing 1) Worsened Decubitus Ulcer extending to the Right ischial Tuberosity with new osteomyelitis of the tuberosity 2) New right gluteal decubitus ulcer with tract extending into the right perirectal region 3) New midline sacral decubitus ulcer extending to the bone and probable new small area of sacral osteomyelitis Discharge Plan Discharge Disposition: [facility] Date of Admission: 03/21/24 22:10 Attending Provider on Discharge: Valdo Fish Primary Care Provider: Flo Mckeon Condition: Stable Discharge Orders: Transfer of Care to Other Hospital (ORDER); Ordered 03/24/24 Ordered By: Valdo Fish
[2024-03-24] MEDS: DAPTOmycin 50 MG/ML inj 500 MG IVP (12:53)
--- NOTE | 2024-03-24 13:12 | P.GSPN_ITS ---
Subjective Subjective Date Seen: 03/24/24 Interval history: Patient is scheduled to transfer to [place] for further workup by Infectious Disease. She continues to have pain from her wounds. This morning she ?feels warm and weak?. Mentally she is overwhelmed by everything that is going on. Exam Narrative: Exam Narrative: General: Alert and oriented Skin: Coccyx wound with exposed bone. Some fibrinous exudate within wound bed, granulation tissue around edges of wound bed. No surrounding erythema or induration Right ischial tuberosity wound. Palpated underlying bone. Granulation tissue within wound bed. No significant amount of fibrinous exudate. No surrounding erythema or induration Right buttock wound with stool contaminated within wound bed. This does appear to tunnel and connect to the previously placed anal seton drain. Wound with irrigated with Vashe and debrided with a 4x4 gauze. No necrotic tissue. Seton drain remains in place. Multiple anal skin tags present. Const: Vital Signs, click to edit/add: Vital Signs - 24 hr 03/23/24 15:17 03/23/24 15:17 03/23/24 19:00 Temperature 97.9 F 98.1 F Pulse Rate [Pulse Oximeter] 70 70 89 Respiratory Rate 16 16 14 Blood Pressure [Le ft Arm] 122/73 Blood Pressure [Ri ght Arm] 110/52 L Pulse Oximetry 92 92 Oxygen Delivery Me thod Room Air Room Air Oxygen Flow Rate 03/23/24 22:43 03/23/24 22:43 03/24/24 02:42 Temperature 96.6 F L 97.3 F L Pulse Rate [Pulse Oximeter] 89 89 86 Respiratory Rate 14 14 14 Blood Pressure [Le ft Arm] 140/82 H Blood Pressure [Ri ght Arm] 158/73 H Pulse Oximetry 91 91 Oxygen Delivery Me thod Room Air Room Air Oxygen Flow Rate 03/24/24 02:42 03/24/24 07:00 03/24/24 07:00 Temperature 97.6 F Pulse Rate [Pulse Oximeter] 96 96 Respiratory Rate 14 14 Blood Pressure [Le ft Arm] 129/80 Blood Pressure [Ri ght Arm] Pulse Oximetry 91 91 Oxygen Delivery Me thod Room Air Oxygen Flow Rate 1 03/24/24 11:00 Temperature 98.0 F Pulse Rate [Pulse Oximeter] 91 Respiratory Rate 14 Blood Pressure [Le ft Arm] 162/93 H Blood Pressure [Ri ght Arm] Pulse Oximetry 99 Oxygen Delivery Me thod Room Air Oxygen Flow Rate 1 Labs/Imaging Labs Labs: Increasing leukocytosis (14--16) Imaging Imaging: MRI reviewed, report showing active osteomyelitis of coccyx and right ischial tuberosity. 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 1. Coccyx wound with exposed bone with and evidence on imaging of active osteomyelitis. No obvious necrotic tissue. No undrained fluid collections within this area. 2. Right ischial tuberosity wound probing to bone. Imaging showing active osteomyelitis. No obvious necrotic tissue. No undrained fluid collections within this area 3. Right buttock wound with stool soiling. 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 Surrounding tissue does have some cellulitic like changes. No necrotic tissue within wound bed. Copious irrigation to area done at bedside. All wounds were dressed with Vashe soaked Kerlix, 4 x 4 and outer ABD dressing. Patient is going to be transferring to [facility] for evaluation by Infectious Disease. Given the right buttock wound tunneling to a her seton, would recommend consultation by general or colorectal surgery. No necrotic tissue seen at this time and no need for emergent debridement. There is some erythema and induration of the periwound concerning for cellulitis. Antibiotics have been changed to daptomycin. Recommend continuing wet to dry dressings. Please call with any acute clinical changes, questions or concerns.
--- NOTE | 2024-03-24 13:52 | W.PM.INFD_ITS ---
Consultation Information Consultation Information Consultation Statement: This patient recommendation is based on a telemedicine consult request which was completed asynchronously through chart review and information provided by the primary physician. The patient was not seen or examined today. The evaluation is consultative in nature and all patient care and treatment decisions can either be accepted or rejected by the patient's primary hospital-based treating physician using their own independent medical judgment for their patient. 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 We know Mary well. The pt was recently hospitalized 03/06-03/14 at [facility] for septic shock, Ecoli UTI & bacteremia, she was treated with IV ceftriaxone then transitioned to oral levaquin. She was still on Levaquin when she presented. She was stable the first few days at home but felt a return of her weakness, chills and fever which prompted presentation to the ED on 03/21/24. ? Of note, the pt does have chronic wounds of her right gluteus, coccyx and left foot that have been the source of sepsis for the last couple of years. Wound care team has managed her both inpatient and outpatient. Pt received IV fluid bolus, blood and urine cx were sent from the ER, IV Ertapenem was initiated, pt was started on Pressors, then admitted for further management. Labs notable for leukocytosis WBC count 18.6K (it was 15.5K at discharge from [facility] on 03/14), Pt with chronic anemia Hg 9.3, plat WNL, renal function and electrolytes were WNL, Gluc 117, AST 50, ALT 26, Alk phos elevated 413, T bili WNL, UA reflects a cloudy urine, 2+ blood, 3+ leukocyte esterase, 25-50 white blood cells, bacteria yeast and sediment noted. CXR no acute process, per H&P, pt with multiple pressure ulcers Rt ischial tuberosity stage 4 tow pressor ulcers, with two wound vacs in place for right glut wounds, new wound noted on right glut in the last few weeks and stage 4 coccyx pressure ulcer. Pt with remote Hx MRSA in wound, recent MRSA swab was negative. She was continued on IV Ertapnem, she remains afebrile, BP improved, blood cx NGTD. Per primary team, general surgery was consulted, Wound VAC was removed and wounds were assessed by General Surgery, no current plan for debridement. CT a/p showed three decubitus ulcers are identified, with new extension to the sacrum. Underlying chronic osteomyelitis in the right ischial tuberosity as well as probably within the sacrum as well. Superimposed acute osteomyelitis not entirely excluded. The additional ulceration extends from the gluteal surface to the right paramidline perirectal soft tissues. WBC is trending down but remains elevated at 16.5K<peak 19.2K, ESR 28, serum Cr 0.4, LA 1.2, CRP 6.2 down from 21.4. Admission blood cx 6/9 NGTD, urine cx 6/9>100K yeast, superficial wound swab preliminary GPCs. SMALL AMOUNT DIPTHEROIDS. NO FURHTER WORKUP Pt seen by Wound care team on 03/22/24 who noted a new (present on admission) right superior buttock wound concerning for stable abscess, or possible fistula, due to complexity of wound contours and tissue irregularities it is difficult to fully to discern this at this time. Wound tracks inferiorly 10cm before tracking anteriorly an additional 2cm, it does not appear to tunnel or connect to any of the known open wounds of the coccyx or right ischial tuberosity. Pt has a pelvic MRI done on 03/23/24, tele ID was consulted to further assist with antibiotic management. I was informed by Medicine Hospitalist that MRI pelvis showed new gluteal and sacral ulcer with new foci of acute osteomyelitis, MRI imaging available but the report is currently not available in EMR for me to review. [facility] Medical History (Updated 03/24/24 @ 13:33 by Valdo Fish MD) 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, stage 4 ?L89.44 - Pressure ulcer of contiguous site of back, buttock and hip, stage 4 (ICD-10) Pressure ulcer ?L89.90 - Pressure ulcer of unspecified site, unspecified stage (ICD-10) Osteomyelitis ?M86.9 - Osteomyelitis, unspecified (ICD-10) Anemia ?D64.9 - Anemia, unspecified (ICD-10) Diarrhea ?R19.7 - Diarrhea, unspecified (ICD-10) Intravenous infiltration ?T80.1XXA - Vascular complications following infusion, transfusion and therapeutic injection, initial encounter (ICD-10) Neurogenic bladder ?N31.9 - Neuromuscular dysfunction of bladder, unspecified (ICD-10) Chronic, continuous use of opioids ?F11.90 - Opioid use, unspecified, uncomplicated (ICD-10) Rheumatoid arthritis ?M06.9 - Rheumatoid arthritis, unspecified (ICD-10) HTN (hypertension) ?I10 - Essential (primary) hypertension (ICD-10) Cristobal catheter in place ?Z97.8 - Presence of other specified devices (ICD-10) Sleep apnea ?G47.30 - Sleep apnea, unspecified (ICD-10) Paraplegia ?G82.20 - Paraplegia, unspecified (ICD-10) Acute on chronic anemia ?D64.9 - Anemia, unspecified (ICD-10) Paraplegia ?G82.20 - Paraplegia, unspecified (ICD-10) Chronic pain ?G89.29 - Other chronic pain (ICD-10) Tubular adenoma of colon ?D12.6 - Benign neoplasm of colon, unspecified (ICD-10) 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 - Acute transverse myelitis in demyelinating disease of central nervous system (ICD-10) Septic shock ?A41.9 - Sepsis, unspecified organism (ICD-10) ?R65.21 - Severe sepsis with septic shock (ICD-10) Recurrent urinary tract infection ?N39.0 - Urinary tract infection, site not specified (ICD-10) Osteoporosis ?M81.0 - Age-related osteoporosis without current pathological fracture (ICD- 10) History of methicillin resistant Staphylococcus aureus infection ?Z86.14 - Personal history of Methicillin resistant Staphylococcus aureus infection (ICD-10) Surgical History Status post debridement ?Z98.890 - Other specified postprocedural states (ICD-10) Social History Narrative: Mary has recently been living at [facility], daughter Elvi (MDM if needed) is hoping to bring her home with director multimedia caregiving. has cognitive impairment. At this time (12/08/23), she is requesting DNR/DNI status. Nonsmoker, no ETOH use. What is your current living situation?: I presently have a place to live Problems where you live: no known problems Problems where you live details: n/a In the past 12 months, utilities in danger of being shut off: no In past 12 months, lack of transportation kept you from medical appts, meetings, work, or getting things needed for daily living: no In the past 12 mos, have been you worried that your food would run out before you had money to buy more?: never true In the past 12 mos, the food you bought just didn't last and you didn't have money to buy more?: never true Highest level of school completed/degree received: Bachelor's degree Smoking Status: Never smoker Do you use any of these nicotine containing products: None Second hand tobacco smoke exposure: No How often do you have a drink containing alcohol: never How often do you have six or more drinks on one occasion: Never AUDIT-C Alcohol total score: 0 Non-prescribed substance use: denies use Caffeine: Yes (1 cup coffee/day) How often does anyone, including family, friends and others, physically hurt you : never How often does anyone, including family, friends and others, insult or talk down to you: never How often does anyone, including family, friends and others, threaten you with h arm: never How often does anyone, including family, friends and others, scream or curse at you: never Little interest or pleasure in doing things: several days Feeling down, depressed, or hopeless: several days service: No Home Medications and Allergies Home Medications and Allergies Inpatient Medications: Active Medications Generic Name Dose Route Start Last Admin Trade Name Freq PRN Reason Stop Dose Admin Acetaminophen 650 - 975 mg 03/21/24 22:10 03/23/24 17:11 Acetaminophen 325 Mg Tablet PO 975 mg Q6H PRN Administration Bisacodyl 10 mg 03/21/24 22:10 Bisacodyl 10 Mg Supp.Rect VT DAILY PRN Daptomycin 500 mg 03/24/24 10:00 03/24/24 12:53 Daptomycin 50 Mg/Ml Inj IVP 500 mg Q24H ESTELA Administration Enoxaparin Sodium 40 mg 03/21/24 22:10 03/23/24 21:12 Enoxaparin 40 Mg/0.4 Ml Inj SUBCUT 40 mg HS ESTELA Administration Gabapentin 300 mg 03/22/24 09:00 03/24/24 09:23 Gabapentin 300 Mg Capsule PO 300 mg TID ESTELA Administration Ertapenem 1 gm/ Sodium 100 mls @ 200 mls/hr 03/22/24 20:00 03/23/24 20:40 Chloride IVPB Infused Q24H ESTELA Infusion Loperamide HCl 2 mg 03/21/24 21:02 Loperamide Hcl 2 Mg Capsule PO TID PRN loose stool Melatonin 3 - 6 mg 03/21/24 22:10 Melatonin 3 Mg Tablet PO HS PRN Metoprolol Succinate 100 mg 03/23/24 09:00 03/24/24 09:23 Metoprolol Succinate (Xl) 100 Mg Tab PO 100 mg DAILY ESTELA Administration Ondansetron HCl 4 mg 03/21/24 22:10 Ondansetron 2 Mg/Ml Inj IVP Q4H PRN Nausea Ondansetron HCl 4 mg 03/21/24 22:10 Ondansetron Odt 4 Mg Tab PO Q6H PRN Oxycodone HCl 7.5 mg 03/21/24 21:02 03/24/24 09:22 Oxycodone 5 Mg Tablet PO 7.5 mg Q4H PRN Administration pain Polyethylene Glycol 17 gm 03/21/24 22:10 Polyethylene Glycol 3350 17 Gm Pack PO DAILY PRN Potassium Chloride 20 meq 03/22/24 09:00 03/24/24 09:23 Potassium Chloride 10 Meq Capsule Er PO 20 meq BID ESTELA Administration Prednisone 10 mg 03/22/24 09:00 03/24/24 09:23 Prednisone 5 Mg Tablet PO 10 mg DAILY ESTELA Administration Senna/Docusate Sodium 1 tab 03/21/24 22:10 Sennosides/Docusate Tablet PO DAILY PRN Sodium Chloride 5 ml 03/21/24 22:10 03/23/24 10:44 Sodium Chloride 0.9 % (Flush) 10 Ml Syringe IVF 5 ml .FLUSH PRN Administration Sodium Chloride 5 ml 03/21/24 22:10 03/24/24 09:23 Sodium Chloride 0.9 % (Flush) 10 Ml Syringe IVF 5 ml BID ESTELA Administration Sodium Chloride 250 ml 03/24/24 20:00 0.9 % Sodium Chloride 250 Ml IV Q24H ESTELA Zinc Sulfate 50 mg 03/22/24 09:00 03/24/24 09:23 Zinc 50 Mg (220 Mg Zinc Sulfate) PO 50 mg DAILY ESTELA Administration Discontinued Medications Generic Name Dose Route Start Last Admin Trade Name Freq PRN Reason Stop Dose Admin Ertapenem Confirm 03/21/24 20:36 Ertapenem 1 Gm Inj Administered 03/21/24 20:37 Dose 1 gm .ROUTE .STK-MED ONE Hydrocortisone Sodium Succinate 100 mg 03/21/24 20:11 03/21/24 20:46 Hydrocortisone Sod Succinate 50 Mg/Ml Inj IVP 03/21/24 20:12 100 mg ONCE ONE Administration Hydrocortisone Sodium Succinate Confirm 03/21/24 20:37 Hydrocortisone Sod Succinate 50 Mg/Ml Inj Administered 03/21/24 20:38 Dose 100 mg .ROUTE .STK-MED ONE Sodium Chloride 1,000 mls @ 6,000 mls/hr 03/21/24 20:00 03/21/24 20:40 0.9 % Sodium Chloride 1000 Ml IV 03/21/24 20:09 Infused .Q10M ESTELA Infusion Ertapenem 1 gm/ Sodium 100 mls @ 200 mls/hr 03/21/24 19:51 03/21/24 21:23 Chloride IVPB 03/21/24 19:52 Infused ONCE ONE Infusion Sodium Chloride 1,000 mls @ 6,000 mls/hr 03/21/24 20:15 03/21/24 21:23 0.9 % Sodium Chloride 1000 Ml IV 03/21/24 20:24 Infused .Q10M ESTELA Infusion Sodium Chloride 1,000 mls @ 125 mls/hr 03/21/24 22:10 03/23/24 17:26 0.9 % Sodium Chloride 1000 Ml IV Infused .Q8H ESTELA Infusion Lactated Ringer's 1,000 mls @ 1,000 mls/hr 03/22/24 08:04 03/23/24 17:26 Lactated Ringers 1000 Ml IV 03/22/24 09:03 Not Given .Q1H ONE Lactobacillus Acidophilus 1 tab 03/22/24 09:00 03/23/24 17:27 Lactobacillus Acidophilus 1 Tablet PO Not Given TID ESTELA Lactobacillus Acidophilus 1 tab 03/22/24 08:00 03/23/24 17:26 Lactobacillus Acidophilus 1 Tablet PO Not Given TIDWM [facility] Multi-Ingredient Cream 10 applic 03/22/24 09:00 03/22/24 14:51 Emollient Base Cream TOPICAL Not Given BID [facility] Non-Formulary Medication 1 applic 03/21/24 21:02 Miconazole Nitrate TOPICAL BID PRN Pantoprazole Sodium 40 mg 03/21/24 22:10 03/22/24 00:02 Pantoprazole Sodium 40 Mg Inj IVPB 03/21/24 22:11 40 mg ONCE ONE Administration Triamcinolone Acetonide 1 applic 03/22/24 09:00 03/22/24 14:51 Triamcinolone Acetonide Cream 0.1 % TOPICAL Not Given BID [facility] Allergies Allergy/AdvReac Type Severity Reaction Status Date / Time piperacillin Allergy Intermediate Rash Verified 01/16/24 05:11 sulfamethoxazole Allergy Intermediate Hives Verified 01/23/24 10:48 [From Bactrim] tazobactam Allergy Intermediate Rash Verified 01/16/24 05:11 trimethoprim [From Bactrim] Allergy Intermediate Hives Verified 01/23/24 10:48 vancomycin Allergy Unknown Anaphylactic Verified 01/16/24 05:11 shock with this medication. Also group home [facility] Objective - Infectious Disease Objective Vital Signs: Vital Signs - 24 hr 03/23/24 15:17 03/23/24 15:17 03/23/24 19:00 Temperature 97.9 F 98.1 F Pulse Rate [Pulse Oximeter] 70 70 89 Respiratory Rate 16 16 14 Blood Pressure [Left Arm] 122/73 Blood Pressure [Right Arm] 110/52 L Pulse Oximetry 92 92 Oxygen Delivery Method Room Air Room Air Oxygen Flow Rate 03/23/24 22:43 03/23/24 22:43 03/24/24 02:42 Temperature 96.6 F L 97.3 F L Pulse Rate [Pulse Oximeter] 89 89 86 Respiratory Rate 14 14 14 Blood Pressure [Left Arm] 140/82 H Blood Pressure [Right Arm] 158/73 H Pulse Oximetry 91 91 Oxygen Delivery Method Room Air Room Air Oxygen Flow Rate 03/24/24 02:42 03/24/24 07:00 03/24/24 07:00 Temperature 97.6 F Pulse Rate [Pulse Oximeter] 96 96 Respiratory Rate 14 14 Blood Pressure [Left Arm] 129/80 Blood Pressure [Right Arm] Pulse Oximetry 91 91 Oxygen Delivery Method Room Air Oxygen Flow Rate 1 03/24/24 11:00 Temperature 98.0 F Pulse Rate [Pulse Oximeter] 91 Respiratory Rate 14 Blood Pressure [Left Arm] 162/93 H Blood Pressure [Right Arm] Pulse Oximetry 99 Oxygen Delivery Method Room Air Oxygen Flow Rate 1 Narrative: Patient was not seen or examined. Results - Infectious Disease Results Labs: 03/22/24 12:36 Buttock Wound Culture - Preliminary Gram positive cocci 03/21/24 20:00 Blood Blood Culture - Preliminary NO GROWTH AFTER 48 HOURS 03/21/24 19:45 Blood Blood Culture - Preliminary NO GROWTH AFTER 48 HOURS 03/21/24 20:14 Urine Catheterized Urine Culture - Final Laboratory Tests 03/24/24 03/24/24 03/23/24 Range/Units 09:49 05:50 06:22 WBC 16.58 H 14.87 H (4.50-11.00) K/uL RBC 3.74 L 3.51 L (4.00-5.20) m/uL Hgb 9.7 L 9.2 L (12.0-16.0) gm/dL Hct 33.4 31.2 L (33.0-51.0) % MCV 89 89 (80-100) fL MCH 26 26 (26-34) pg MCHC 29 L 30 L (32-36) gm/dL RDW Coeff of Lynette 18.1 H (11.5-15.5) % Plt Count 308 299 (140-440) K/uL Neut % (Auto) 77.8 H (42.0-72.0) % Lymph % (Auto) 13.4 L (20-44) % Bath % (Auto) 6.3 (0.0-11.0) % Eos % (Auto) 1.5 (0.0-7.0) % Baso % (Auto) 0.1 (0.0-3.0) % Neut # (Auto) 11.60 H (1.7-7.0) K/uL Lymph # (Auto) 2.00 (0.90-2.90) K/uL Bath # (Auto) 0.90 (0.00-0.90) K/UL Eos # (Auto) 0.20 (0.00-0.50) K/uL Baso # (Auto) 0.00 (0.00-0.30) K/uL Abs Immat Gran (auto) 0.10 (0.00-0.30) K/uL Imm/Tot Granulo (auto) 0.9 % ESR 28 H (2-20) mm/hr INR (0.91-1.10) VBG pH (7.32-7.43) VBG pCO2 (40-50) mmHG VBG pO2 (25-47) mmHG VBG HCO3 (21-28) mmol/L Sodium 142 141 (135-149) mmol/L Potassium 4.8 3.8 (3.6-5.1) mmol/L Chloride 114 113 (96-114) mmol/L Carbon Dioxide 22 23 (20-32) mmol/L Anion Gap 6 L 5 L (7-15) mEq/L BUN 28 28 (7-30) mg/dL Creatinine 0.4 L 0.5 (0.5-1.5) mg/dL Estimated Creat Clear 33.84 33.84 Estimated GFR 102 97 ml/min Glucose 103 104 (60-115) mg/dL Lactate (0.5-1.9) mmol/L Calcium 8.7 7.8 L (8.4-10.6) mg/dL Phosphorus 3.6 (2.5-4.5) mg/dL Magnesium 2.2 (1.5-2.6) mg/dL Total Bilirubin 0.5 (0.1-1.5) mg/dL Direct Bilirubin (0.0-0.5) mg/dL GGT (8-55) U/L AST 30 (12-35) U/L ALT 29 (4-35) U/L Alkaline Phosphatase 267 H (40-150) U/L Total Creatine Kinase 23 L (41-117) U/L C-Reactive Protein 6.2 H (0.5-1.0) mg/dL Total Protein 5.0 L (6.0-8.3) g/dL Albumin 2.8 L (3.3-5.0) g/dL Lipase (23-300) U/L Urine Color (Yellow) Urine Appearance (Clear) Urine pH (5.0-8.5) Ur Specific [place] (1.000-1.030) Urine Protein (Negative) Urine Glucose (UA) (Negative) Urine Ketones (Negative) Urine Blood (Negative) Urine Nitrite (Negative) Urine Bilirubin (Negative) Urine Urobilinogen (0.2-1.0) Ur Leukocyte Esterase (Negative) Urine RBC (0-2) Urine WBC (0-5) Ur Squamous Epith Cells (None-Few) Calcium Oxalate Crystal (None) Other Sediment (None) Urine Bacteria (None) Urine Yeast (None) Lab Acknowledgement Test Added 03/22/24 03/21/24 03/21/24 Range/Units 06:15 20:53 20:14 WBC 19.25 H (4.50-11.00) K/uL RBC 3.42 L (4.00-5.20) m/uL Hgb 9.0 L (12.0-16.0) gm/dL Hct 30.6 L (33.0-51.0) % MCV 90 (80-100) fL MCH 26 (26-34) pg MCHC 29 L (32-36) gm/dL RDW Coeff of Lynette 17.5 H (11.5-15.5) % Plt Count 267 (140-440) K/uL Neut % (Auto) 87.5 H (42.0-72.0) % Lymph % (Auto) 6.9 L (20-44) % Bath % (Auto) 2.9 (0.0-11.0) % Eos % (Auto) 0.0 (0.0-7.0) % Baso % (Auto) 0.1 (0.0-3.0) % Neut # (Auto) 16.80 H (1.7-7.0) K/uL Lymph # (Auto) 1.30 (0.90-2.90) K/uL Bath # (Auto) 0.60 (0.00-0.90) K/UL Eos # (Auto) 0.00 (0.00-0.50) K/uL Baso # (Auto) 0.00 (0.00-0.30) K/uL Abs Immat Gran (auto) 0.50 H (0.00-0.30) K/uL Imm/Tot Granulo (auto) 2.6 % ESR (2-20) mm/hr INR (0.91-1.10) VBG pH 7.349 (7.32-7.43) VBG pCO2 48 (40-50) mmHG VBG pO2 43.6 (25-47) mmHG VBG HCO3 26 (21-28) mmol/L Sodium 140 (135-149) mmol/L Potassium 3.6 (3.6-5.1) mmol/L Chloride 109 (96-114) mmol/L Carbon Dioxide 25 (20-32) mmol/L Anion Gap 6 L (7-15) mEq/L BUN 31 H (7-30) mg/dL Creatinine 0.6 (0.5-1.5) mg/dL Estimated Creat Clear 33.84 Estimated GFR 92 ml/min Glucose 99 (60-115) mg/dL Lactate (0.5-1.9) mmol/L Calcium 7.3 L (8.4-10.6) mg/dL Phosphorus 4.0 (2.5-4.5) mg/dL Magnesium (1.5-2.6) mg/dL Total Bilirubin 0.5 (0.1-1.5) mg/dL Direct Bilirubin 0.5 (0.0-0.5) mg/dL GGT (8-55) U/L AST 46 H (12-35) U/L ALT 36 H (4-35) U/L Alkaline Phosphatase 358 H (40-150) U/L Total Creatine Kinase (41-117) U/L C-Reactive Protein 21.4 H (0.5-1.0) mg/dL Total Protein 4.8 L (6.0-8.3) g/dL Albumin 2.7 L (3.3-5.0) g/dL Lipase 12 L (23-300) U/L Urine Color Yellow (Yellow) Urine Appearance Cloudy A (Clear) Urine pH 5.0 (5.0-8.5) Ur Specific [place] 1.020 (1.000-1.030) Urine Protein Trace A (Negative) Urine Glucose (UA) Negative (Negative) Urine Ketones Negative (Negative) Urine Blood 2+ A (Negative) Urine Nitrite Negative (Negative) Urine Bilirubin Negative (Negative) Urine Urobilinogen 0.2 (0.2-1.0) Ur Leukocyte Esterase 3+ A (Negative) Urine RBC 0-2 (0-2) Urine WBC 25-50 A (0-5) Ur Squamous Epith Cells None (None-Few) Calcium Oxalate Crystal Few A (None) Other Sediment Many A (None) Urine Bacteria Few A (None) Urine Yeast Many A (None) Lab Acknowledgement Test Added 03/21/24 03/21/24 Range/Units 19:49 19:45 WBC 18.61 H (4.50-11.00) K/uL RBC 3.48 L (4.00-5.20) m/uL Hgb 9.3 L (12.0-16.0) gm/dL Hct 30.7 L (33.0-51.0) % MCV 88 (80-100) fL MCH 27 (26-34) pg MCHC 30 L (32-36) gm/dL RDW Coeff of Lynette 17.3 H (11.5-15.5) % Plt Count 279 (140-440) K/uL Neut % (Auto) 90.2 H (42.0-72.0) % Lymph % (Auto) 4.4 L (20-44) % Bath % (Auto) 3.7 (0.0-11.0) % Eos % (Auto) 0.3 (0.0-7.0) % Baso % (Auto) 0.1 (0.0-3.0) % Neut # (Auto) 16.80 H (1.7-7.0) K/uL Lymph # (Auto) 0.80 L (0.90-2.90) K/uL Bath # (Auto) 0.70 (0.00-0.90) K/UL Eos # (Auto) 0.10 (0.00-0.50) K/uL Baso # (Auto) 0.00 (0.00-0.30) K/uL Abs Immat Gran (auto) 0.20 (0.00-0.30) K/uL Imm/Tot Granulo (auto) 1.3 % ESR (2-20) mm/hr INR 1.09 (0.91-1.10) VBG pH 7.448 H (7.32-7.43) VBG pCO2 44 (40-50) mmHG VBG pO2 76.6 H (25-47) mmHG VBG HCO3 30 H (21-28) mmol/L Sodium 137 (135-149) mmol/L Potassium 3.7 (3.6-5.1) mmol/L Chloride 103 (96-114) mmol/L Carbon Dioxide 31 (20-32) mmol/L Anion Gap 3 L (7-15) mEq/L BUN 35 H (7-30) mg/dL Creatinine 0.8 (0.5-1.5) mg/dL Estimated Creat Clear 33.84 Estimated GFR 76 ml/min Glucose 117 H (60-115) mg/dL Lactate 1.2 (0.5-1.9) mmol/L Calcium 7.9 L (8.4-10.6) mg/dL Phosphorus (2.5-4.5) mg/dL Magnesium (1.5-2.6) mg/dL Total Bilirubin 0.7 (0.1-1.5) mg/dL Direct Bilirubin 0.5 (0.0-0.5) mg/dL GGT 328 H (8-55) U/L AST 50 H (12-35) U/L ALT 26 (4-35) U/L Alkaline Phosphatase 413 H (40-150) U/L Total Creatine Kinase (41-117) U/L C-Reactive Protein 18.6 H (0.5-1.0) mg/dL Total Protein 4.8 L (6.0-8.3) g/dL Albumin 2.7 L (3.3-5.0) g/dL Lipase (23-300) U/L Urine Color (Yellow) Urine Appearance (Clear) Urine pH (5.0-8.5) Ur Specific [place] (1.000-1.030) Urine Protein (Negative) Urine Glucose (UA) (Negative) Urine Ketones (Negative) Urine Blood (Negative) Urine Nitrite (Negative) Urine Bilirubin (Negative) Urine Urobilinogen (0.2-1.0) Ur Leukocyte Esterase (Negative) Urine RBC (0-2) Urine WBC (0-5) Ur Squamous Epith Cells (None-Few) Calcium Oxalate Crystal (None) Other Sediment (None) Urine Bacteria (None) Urine Yeast (None) Lab Acknowledgement Impression & Recommendations Recommendations Impression & Recommendations: Reason For Consult: Multiple decubiti ulcers with MRI c/f osteomyelitis HPI: This is a 78 year old female patient with multiple listed antibiotic allergies (anaphylactic shock to IV vancomycin, hives to Bactrim, rash to pip/tazo), also with a a complex medical history, not previously Dx with DM however recent Hg A1C 6.6 (pt on chronic prednisone), paraplegia secondary to transverse myelitis, chronic indwelling Cristobal catheter, and chronic sacral + gluteal, L foot decubiti ulcers/wounds for which [facility]p Wound VAC placement to right gluteal wound, also with rheumatoid arthritis on chronic prednisone therapy, and atrial fibrillation, who presented to [facility] on 03/21/24 with chills, weakness, and hypotension concerning for septic shock. We know Mary well. The pt was recently hospitalized 03/06-03/14 at [facility] for septic shock, Ecoli UTI & bacteremia, she was treated with IV ceftriaxone then transitioned to oral levaquin. She was still on Levaquin when she presented. She was stable the first few days at home but felt a return of her weakness, chills and fever which prompted presentation to the ED on 03/21/24. ? Of note, the pt does have chronic wounds of her right gluteus, coccyx and left foot that have been the source of sepsis for the last couple of years. Wound care team has managed her both inpatient and outpatient. Pt received IV fluid bolus, blood and urine cx were sent from the ER, IV Ertapenem was initiated, pt was started on Pressors, then admitted for further m anagement. Labs notable for leukocytosis WBC count 18.6K (it was 15.5K at discharge from [facility] on 03/14), Pt with chronic anemia Hg 9.3, plat WNL, renal function and electrolytes were WNL, Gluc 117, AST 50, ALT 26, Alk phos elevated 413, T bili WNL, UA reflects a cloudy urine, 2+ blood, 3+ leukocyte esterase, 25-50 white blood cells, bacteria yeast and sediment noted. CXR no acute process, per H&P, pt with multiple pressure ulcers Rt ischial tuberosity stage 4 tow pressor ulcers, with two wound vacs in place for right glut wounds, new wound noted on right glut in the last few weeks and stage 4 coccyx pressure ulcer. Pt with remote Hx MRSA in wound, recent MRSA swab was negative. She was continued on IV Ertapnem, she remains afebrile, BP improved, blood cx NGTD. Per primary team, general surgery was consulted, Wound VAC was removed and wounds were assessed by General Surgery, no current plan for debridement. CT a/p showed three decubitus ulcers are identified, with new extension to the sacrum. Underlying chronic osteomyelitis in the right ischial tuberosity as well as probably within the sacrum as well. Superimposed acute osteomyelitis not entirely excluded. The additional ulceration extends from the gluteal surface to the right paramidline perirectal soft tissues. WBC is trending down but remains elevated at 16.5K<peak 19.2K, ESR 28, serum Cr 0.4, LA 1.2, CRP 6.2 down from 21.4. Admission blood cx 6/9 NGTD, urine cx 6/9>100K yeast, superficial wound swab preliminary GPCs. SMALL AMOUNT DIPTHEROIDS. NO FURHTER WORKUP Pt seen by Wound care team on 03/22/24 who noted a new (present on admission) right superior buttock wound concerning for stable abscess, or possible fistula, due to complexity of wound contours and tissue irregularities it is difficult to fully to discern this at this time. Wound tracks inferiorly 10cm before tracking anteriorly an additional 2cm, it does not appear to tunnel or connect to any of the known open wounds of the coccyx or right ischial tuberosity. Pt has a pelvic MRI done on 03/23/24, tele ID was consulted to further assist with antibiotic management. I was informed by Medicine Hospitalist that MRI pelvis showed new gluteal and sacral ulcer with new foci of acute osteomyelitis, MRI imaging available but the report is currently not available in EMR for me to review. Micro Summary: Admission blood cx 6/9 NGTD, urine cx 6/9>100K yeast, superficial wound swab preliminary GPCs. SMALL AMOUNT DIPTHEROIDS. NO FURHTER WORKUP Diagnostics (Labs, Imaging) Summary: As summarized above Antibiotic Summary: IV Ertapenem 03/21-current Antibiotic allergies/intolerances: anaphylactic shock to IV vancomycin, hives to Bactrim, rash to pip/tazo) Impression: Pt with PMH and hospital course as listed above, admitted with septic shock source presumed infected decubiti ulcer with possible skin and soft tissue infection with MRI findings c/f possible new foci of osteomyelitis, also being treated for presumed urosepsis. Pt seen by Wound care team on 03/22/24 who noted a new (present on admission) right superior buttock wound concerning for stable abscess, or possible fistula, due to complexity of wound contours and tissue irregularities it is difficult to fully to discern this at this time. Wound tracks inferiorly 10cm before tracking anteriorly an additional 2cm, it does not appear to tunnel or connect to any of the known open wounds of the coccyx or right ischial tuberosity. Pt has a pelvic MRI done on 03/23/24, I was informed by Medicine Hospitalist that MRI pelvis showed new gluteal and sacral ulcers with new foci of acute osteomyelitis, MRI imaging available but the report is currently not available in EMR for me to review. Recommendations: -The patient is at risk for recurrent infection of her chronic wounds and at risk for developed acute on chronic osteomyelitis, of note the MRI is very sensitive but not specific for osteomyelitis and definitive diagnosis would require a bone biopsy for histopathology and culture to direct targeted antibiotic therapy, there are no deep wound cultures in this case and the patient has multiple antibiotic allergies, ideally if debridement to be done along with deep OR cultures and a bone biopsy to be obtained surgically or by IR, it would help target the antimicrobial treatment, a long course of antibiotic alone might be inadequate and unsuccessful and would not be curative. It is reasonable to continue systemic IV Abx in this patient who presented with septic shock, given her Abx allergies and given the fact that she decompensated while on PO Levaquin, IV Ertapenem is reasonable option, I would add IV Daptomycin. -Check Nares MRSA screen -Follow up wound Cx results, although it is superficial and not a deep cx -Follow up official MRI read, currently not available in EMR, imaging available but not report. -If there is no plan for surgical debridement and a flap with eventual diverting colostomy, there is no role for a prolonged course of antibiotics alone in this cases, the patient would be at high risk for recurrent infection despite a long course of systemic IV Abx, as stated above, ideally would evaluate for possible surgical treatment I&D and a definitive diagnosis of osteomyelitis by obtaining a bone biopsy surgically or by IR for bacterial/fungal/AFB stain, cultures and for historpathology. -Continue IV Ertapenem 1 gr q24hr. -Check Nares MRSA screen, baseline CPK, trend ESR, CRP and start IV Daptomycin 8mg/kg IV q24 hr. -To hold statin while on IV Daptomycin. -Monitor clinical status and labs while on systemic with cbc/diff, CMP, CPK, ESR, CRP. -Above plan was discussed with DR. Fish earlier. -Thanks for the consult, tele ID will follow up, you can call with questions. Adelaide Valerio MD [facility] ID Connect
--- NOTE | 2024-03-24 15:00 | PC.NURSE ---
Patient discharged via non-emergent ambulance to [facility] at 1434. Patient VSS, RA, afebrile this shift, and tolerating a reg. diet. Patient's delacruz patent and draining. Patient had a large formed BM. Patient's wounds to bottom changed and packed wet to dry by Dr. Caro. Nurse to nurse given to Alaina Mejia at [facility].
--- NOTE | 2024-03-24 18:40 | PC.NURSE ---
Per lab patient had positive blood culture which revealed yeast. Bottle drawn on 03/21/24. Called [facility] and informed nurse Zafar.
== END 2024-03-24 14:34 | disposition short-term general hospital (02) | DRG 579 ==
LOC: ED 20:37 → MEDSURG 20:56
PROVIDERS: Hospitalist; Admitting Provider Family Medicine; Emergency Provider Family Medicine; PCP Family Medicine; Visit Provider Family Medicine
DX: L89.154 Pressure ulcer of sacral region, stage 4 (principal); A41.81 Sepsis due to Enterococcus; B37.7 Candidal sepsis; M86.18 Other acute osteomyelitis, other site; M46.28 Osteomyelitis of vertebra, sacral and sacrococcygeal region; M86.651 Other chronic osteomyelitis, right thigh; G82.20 Paraplegia, unspecified; E87.29 Other acidosis; E44.1 Mild protein-calorie malnutrition; J44.1 Chronic obstructive pulmonary disease with (acute) exacerbation; L03.317 Cellulitis of buttock; B37.49 Other urogenital candidiasis; L89.44 Pressure ulcer of contiguous site of back, buttock and hip, stage 4; L89.314 Pressure ulcer of right buttock, stage 4; L89.214 Pressure ulcer of right hip, stage 4; N31.9 Neuromuscular dysfunction of bladder, unspecified; E11.8 Type 2 diabetes mellitus with unspecified complications; I95.9 Hypotension, unspecified; D64.9 Anemia, unspecified; E88.09 Other disorders of plasma-protein metabolism, not elsewhere classified; J44.9 Chronic obstructive pulmonary disease, unspecified; R60.1 Generalized edema; F11.90 Opioid use, unspecified, uncomplicated; G47.30 Sleep apnea, unspecified; Z86.14 Personal history of Methicillin resistant Staphylococcus aureus infection; Z97.8 Presence of other specified devices; Z68.29 Body mass index [BMI] 29.0-29.9, adult; M06.9 Rheumatoid arthritis, unspecified; Z79.52 Long term (current) use of systemic steroids; I48.91 Unspecified atrial fibrillation; I10 Essential (primary) hypertension
CPT/HCPCS: 36415; 51701; 71045; 72197; 74177; 80048; 80053; 80069; 80076; 81001; 82550; 82803; 82977; 83605; 83690; 83735; 84100; 85025; 85027; 85610; 85651; 86140; 87040; 87070; 87081; 87086; 87106; 87186; 94761; 99285; A9270; A9575; C9113; J0878; J1335; J1650; J1720; J7030; J7512; Q9967

== ENCOUNTER 2024-03-24 14:20 | Outpatient (CLI) | payer MEDICARE, SELFPAY ==
--- OUTSIDE RECORDS SUMMARY | 2024-03-26 16:37 | XMS_ITS | Clinical Summary ---
Author Organization [facility] Address [address] [place] [address] Care Team Providers Care Edge Drummer Name Role Phone Flo Mckeon MD Primary Care Provider [phone] Allergies Active Allergy Reactions Criticality Noted Date [...] mouth daily 30 tablet 03/15/20 24 Active PREDNISONE PO Take 5 mg [...] by mouth At Bedtime 28 tablet 12/16/19 Discontinued LORazepam (ATIVAN) 0.5 MG tabletIndications: Anxiety [...] mouth daily as needed 14 packet 12/16/19 Discontinued(Me d Rec(No AVS / No eCancel)) [...] mouth daily 024 Discontinued(St op at Discharge) levofloxacin (LEVAQUIN) 500 MG tabletIndications: Septic shock (H) Take 1 tablet (500 mg) by mouth daily for 10 days 10 tablet 03/14/20 24 024 Active Problems Problem Noted Date Diagnosed Date [...] - 03/14/2024 5:17 PM CDT Hospital Encounter [place] [address] [facility] [address] [place] [address] Chago Velazquez MD Kriz, John Anthony, Pressure injury of right ischium, 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); Fever in adult; Septic shock (H); Urinary tract infection without hematuria, site unspecified; Elevated lactic acid level; 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 Lab (1st floor, no room number) [place] [address], [facility] * (ABNORMAL) CBC with platelets (03/14/2024 6:02 [...] MD LAB - BLOOD ORDER [facility] [address] Lab (1st floor, no room number) [place] [address], [facility] * Potassium (03/13/2024 5:04 AM CDT) Only the most recent of6 resultswithin the time period is included. Potassium 3.9 3.4 - 5.3 mmol/L 03/13/2024 5:44 AM CDT [facility] LABORATORY Blood TOPOGRAPHY UNKNOWN / Unknown VAD(CVC, PICC) / Unknown 03/13/2024 5:04 AM CDT 03/13/2024 5:22 AM CDT Don Ramirez MD LAB - BLOOD ORDER TYRON Performing Organization Address City/[facility]/ZIP Co de Phone Number LABORATORY [facility] [address] Lab (1st floor, no room number) [place] [address] * EKG 12-lead, tracing only (03/12/2024 11:32 AM CDT) Only the most recent of2 resultswithin the time period is included. Systolic Blood Pressure mmHg RADIOLOGY RESULTS Diastolic Blood Pressure mmHg RADIOLOGY RESULTS Ventricular Rate 89 BPM RAD IOLOGY RESULTS Atrial Rate 89 BPM RADIOLOG Y RESULTS MS Interval 128 ms RADIOLOG Y RESULTS QRS Duration 118 ms RADIOLO GY RESULTS QT 376 ms RADIOLOGY RESULTS QTc 457 ms RADIOLOGY RESULTS P Collins 59 degrees RADIOLOGY RESULTS R AXIS 93 degrees RADIOLOGY RESULTS T Collins 53 degrees RADIOLOGY RESULTS Interpretation ECG Sinus rhythm Right bundle branch block Abnormal ECG When compared with ECG of 06-MAR-2024 04:53, Nonspecific T wave abnormality no longer evident in Inferior leads Confirmed by MD MCALLISTER MICHAEL ([id number]) on 03/12/2024 10:11:09 PM RADIOLOGY RESULTS 03/12/2024 11:3 2 AM CDT 03/12/2024 10:11 PM CDT Don Ramirez MD ECG ORDERABLES Performing Organization Address [facility] Co de Phone Number RADIOLOGY RESULTS * (ABNORMAL) Glucose by meter (03/09/2024 2:17 AM CDT) Only the most recent of10 resultswithin the time period is included. GLUCOSE BY METER POCT 171(H) 70 - 99 mg/dL 03/09/2024 2:29 AM CDT LABORATORY POC Blood, Capillary BLOOD SPECIMEN / Unknown 03/09/2024 2:17 AM CDT 03/09/2024 2:29 AM CDT Chago JACKSON - BEAKER POCT LABORATORY [facility] Acute Care Lab [address] Lab (1st floor, no room number) [address] * Lactic Acid Whole Blood w/ [...] Burt DO LAB - BLOOD O RDERABLES [facility] Lab [address] Lab (1st floor, no room number) [address] * (ABNORMAL) Hemoglobin A1c (03/07/2024 4:31 AM CDT) [facility] Hemoglobin A1C 6.6(H) <5.7 % 03/09/2024 11:29 AM CDT LABORATORY Comment: Normal <5.7% Prediabetes 5.7-6.4% ?? Diabetes 6.5% or higher Note: Adopted from ADA consensus guidelines. Blood VENOUS LINE / Unknown VAD(CVC, PICC) / Unknown 03/07/2024 4:31 AM CDT 03/07/2024 4:36 AM CDT Chago Vicente DO LAB - BLOOD ORDERAB LES [facility] [address] Lab (1st floor, no room number) [address] * (ABNORMAL) Comprehensive metabolic panel (03/07/2024 4:31 AM CDT) Only the most recent of3 resultswithin the time period is included. Pathologist [facility] Sodium 145 135 - 145 mmol/L [...] LAB - BLOOD O RDERABLES RH LABORATORY [facility] [address] Lab (1st floor, no room number) [place] [address], [facility] * Blood Culture Wrist, Left (03/06/2024 4:46 PM CDT) Only the most recent of4 resultswithin the time period is included. Culture No Growth 03/11/2024 6:46 PM CDT [facility] Blood STRUCTURE OF LEFT WRIST REGION / Unknown Venipuncture / Unknown 03/06/2024 4:46 PM CDT 03/06/2024 5:07 PM CDT Apple Burt DO LAB - MICRO G ENERAL ORDERABLES [facility] Inf. Diseases Diag. Lab [address], [address] [place] [address], [facility] * XR Chest Port 1 View [...] EXAM: XR CHEST PORT 1 VIEW LOCATION: [facility] DATE: 03/06/2024 INDICATION: central line confirmation of placement COMPARISON: 03/06/2024 1:28 AM Procedure Note Jeremiah Crocker MD - 03/06/2024 EXAM: XR CHEST PORT 1 VIEW LOCATION: [facility] DATE: 03/06/2024 INDICATION: central line confirmation of [...] MD LAB - BLOOD ORDERABL ES LABORATORY [facility] [address] Lab (1st floor, no room number) [place] [address], [facility] * (ABNORMAL) UA with Microscopic (03/06/2024 2:54 AM CDT) Color Urine Yellow Colorless, Straw, Light Yellow, Yellow 03/06/2024 4:11 AM CDT LABORATORY Appearance Urine Cloudy(A) Clear 03/06/20 4:11 AM CDT RH LABORATORY Glucose Urine Negative Negative mg/dL 03/06/2024 4:11 AM CDT LABORATORY Bilirubin Urine Negative Negative 4:11 AM CDT LABORATORY Ketones Urine Negative Negative mg/dL 03/06/2024 4:11 AM CDT LABORATORY Specific [place] Urine 1.018 1.003 - 1.035 03/06/2024 4:11 [...] Velazquez MD LAB - URINE ORDERABL ES [facility] Acute Care Lab [address] [facility] Lab (1st floor, no room number) [place] [address], [facility] * (ABNORMAL) Urine Culture (03/06/2024 2:54 AM [...] coli Cefazolin DAWSON <=4 ug/mL: Susceptible Comment:Cefazolin MD C breakpoints are for the treatment of [...] coli Cefazolin DAWSON 8 ug/mL: Susceptible Comment:Cefazolin MD C breakpoints are for the treatment of [...] - MICRO GENERAL ORDERABLES [facility] Inf. Diseases Diag. Lab [address], [address] [place] [address] * (ABNORMAL) Verigene GN Panel (03/06/2024 1:55 AM CDT) Pathologist [facility] Acinetobacter species Not Detected Not Detected 03/06/2024 [...] 03/06/2024 5:46 PM CDT Specimen tested with [employer] Systemsigene multiplex, gram-negative blood culture nucleic acid test for the following targets: Acinetobacter species, Citrobacter species, Enterobacter species, Proteus species, Escherichia coli, Klebsiella pneumoniae, Klebsiella oxytoca, Pseudomonas aeruginosa, and the following resistance markers: CTX-M, KPC, NDM, VIM, IMP and OXA. Chago Velazquez MD LAB - MICRO GENERAL ORDERABLES [facility] Inf. Diseases Diag. Lab [address], [address] [place] [address] * Symptomatic Influenza A/B, RSV, & SARS-CoV2 PCR (COVID-19) Nose (03/06/2024 1:45 AM CDT) Pathologist [facility] Influenza A PCR Negative Negative 03/06/2024 2:28 [...] the Xpert Xpress CoV2/Flu/RSV Assay on the [employer] GeneXpert Instrument. This test should be ordered [...] management. This test was validated by the [facility] [employer]. These laboratories are certified under the Clinical Laboratory Improvement Amendments of 1988 (CLIA-88) as qualified to perform high complexity laboratory testing. Chago Velazquez MD LAB - MICRO GENERAL ORDERABLES Performing Organization Address City/[facility]/ZIP Co de Phone Number [facility] [address] Lab (1st floor, no room number) [place] [address] * Extra Red Top Tube (03/06/2024 12:52 AM CDT) Pathologist [facility] Hold Specimen [facility] 03/06/2024 2:01 AM CDT LABORATORY Blood BLOOD SPECIMEN / Unknown Venipuncture / Unknown 03/06/2024 12:52 AM CDT 03/06/2024 12:59 AM CDT Chago Velazquez MD LAB - BLOOD ORDERABL ES RH LABORATORY [facility] Acute Care Lab [address] Lab (1st floor, no room number) [place] [address] * Extra Blue Top Tube (03/06/2024 12:52 AM CDT) Hold Specimen JI 03/06/2024 2:01 AM CDT RH LABORATORY Blood BLOOD SPECIMEN / Unknown Venipuncture / Unknown 03/06/2024 12:52 AM CDT 03/06/2024 12:59 AM CDT Chago Velazquez MD LAB - BLOOD ORDERABL ES [facility] LABORATORY [facility] [address] Lab (1st floor, no room number) [place] [phone] * (ABNORMAL) CBC with platelets and differential (03/06/2024 12:52 AM CDT) [facility] Signature WBC Count 26.2(H) 4.0 - 11.0 10e3/uL [...] LAB - BLOOD ORDERABL ES [facility] LABORATORY [facility] [address] [facility], no room number) [place] [address] * (ABNORMAL) Procalcitonin (03/06/2024 12:52 AM CDT) [...] See Procalcitonin Guidance document for more details. [email or web address] Factors that may affect PCT levels (not [...] MD LAB - BLOOD ORDERABL ES LABORATORY [facility] Lab [address] Lab (1st floor, no room number) [place] [address], [facility] * Lab Result - HIM Scan (02/06/2024 12:00 AM CDT) 02/06/2024 Provider Outside NON-BEAKER LAB TE ST[place] * EKG Cardiac - HIM Scan (01/16/2024 12:00 AM CDT) 01/16/2024 Provider Outside ECG ORDERABLES from Last 3 Months Additional Health Concerns Infection Onset Date Last Indicated MRSA 12/02/2013 03/09/2024 Advance Directives For more information, please contact: [phone] * No CPR- Pre-arrest intubation OK (Latest [...] 2:28 PM 12/15/2013 6:18 PM Care Teams Edge Drummer Relationship Specialty Start Date End Date Flo Mckeon MD [facility] [address] [place] [address] PCP - General Family Medicine 03/09/24
--- OUTSIDE RECORDS SUMMARY | 2024-03-26 16:38 | XMS_ITS | Encounter Summary ---
Author Organization [facility] Address [address] [place] [address] Care Team Providers Care Tipping Machine Operator Name Role Phone [facility], [facility]- Primary Care Provider Flo Mckeon MD Primary Care Provider [phone] Reason for Referral * Home Health Therapies & Aides (Routine: Next available opening) - Pending Review Specialty Diagnoses / Procedures Referred By Contac t Referred To Contact Diagnoses Pressure injury of right ischium, stage 4 (H) Dain Barnes MD [address] [place] [address] Referral ID Status Reason Start Date Expiration Date V isits Requested Visits Authorized [id number] Pending Review 03/14/2024 03/14/2025 1 1 Question Answer Reason for Referral: Care Home Care Home Eval and Treat for: Complex aftercare, Wound [...] 03/14/2024 Provider to follow patient FLO MCKEON [[id number]] Additional Information: Wound dressing change Friday and [...] hematuria, site unspecified [facility] [address] [place] [address] Referral ID Status Reason Start Date Expiration Date Visits Re quested Visits Authorized [id number] 1 1 Encounter Details Date Type Department Care Team (Late st Contact Info) Description 03/06/2024 12:34 AM CDT - 03/14/2024 5:17 PM CDT Hospital Encounter [place] [address] [facility] [address] [place] [id number] Chago Velazquez MD [facility] [address] [place], [place] [id number] Chago Vicente DO [address] [place] [address] Pressure injury of right ischium, stage 4 [...] from the original note were not included. [facility] Discharge Summary Hospitalist Date of Admission: 03/06/2024 Date of Discharge: 03/14/2024 Provider: Dain Barnes MD. [facility] Date of Service (when I last [...] EXAM: XR CHEST PORT 1 VIEW LOCATION: [facility] DATE: 03/06/2024 INDICATION: Fever COMPARISON: 12/21/2013 Impression IMPRESSION: Mild cardiac enlargement. Normal pulmonary vascularity. Linear scarring right lung base. Marked vascular calcification. Postoperative changes thoracic and lumbar spine. XR Chest Port 1 View Narrative EXAM: XR CHEST PORT 1 VIEW LOCATION: [facility] DATE: 03/06/2024 INDICATION: central line confirmation of [...] capsule Take 1 capsule by mouth daily metoprolol succinate ER (TOPROL XL) 100 MG [...] Take 220 mg by mouth every evening levofloxacin (LEVAQUIN) 500 MG tabletIndications:Septi c shock (H) Take 1 tablet (500 mg) by mouth daily for 10 days 10 tablet 03/14/2024 03/24/2024 documented as of this encounter Progress Notes * Luciana Chaparro RN - 03/14/2024 12:10 PM CDT Care Management Discharge Note Discharge Date: 03/14/2024 Discharge Disposition: Home Care Discharge Services: skilled home nursing Discharge DME: wound vac dressing supplies Discharge Transportation: daughter Education Provided on the Discharge Plan: yes Persons Notified of Discharge Plans: [facility], pt's block and case maker Adela Patient/Family in Agreement with the Plan: yes Additional Information: Patient is medically ready for discharge today back to home with daughter and resumption of modular home crew member and SUPERVISOR OF COMMUNICATIONS through [facility]. [facility] provides patient with RN visits on Friday and Friday for wound vac dressing changes. Spoke with Adela pt's modular home crew member on 03/12 and they have patient on scheduled for Thursday 03/15 at 2pm for vac dressing change. Text sent to Adela to update on discharge today. Pt's daughter Elvi will transport patient back to home with van. Bedside RN will arrange time with daughter. Home Care orders faxed to [facility] to review. No further CM needs noted, please call if needs arise. ADDENDUM 1228: Received call from dtr Elvi who wanted to make sure home care is all set up to resume. Updated Elvi that pt's RN Daniela has been notified and also orders to resume home care with [facility] has already loida faxed to agency. Home Care is set to resume tomorrow 03/15 @ 2pm for vac dressing change. Elvi plans to be here at 4pm to transport patient back to home. Luciana Chaparro RN Auto Parts Clerk [facility] [phone] * Dain Barnes MD - 03/13/2024 12:13 PM CDT Images from the original note were not included. [facility] Hospitalist Progress Note Admit 03/06/2024 12:34 AM Name: Prerna Major Provider: Dain Barnes MD, [facility] Date of Service: 03/13/2024 Reason for [...] injection 40 mg 40 mg Intravenous Once Dain Barnes MD furosemide (LASIX) tablet 20 mg [...] 10 mg 10 mg Oral Daily Fox Waston MD 10 mg at 03/13/24 0828 sodium [...] from the original note were not included. 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 Is followed at wound clinic in [place] and is currently using NPWT. Patient requests [...] couple months. Is followedat wound clinic in [place]. Currently using Vashe packing. Per patient they [...] prior to replacing NPWT Suction setting: -100 associate dean of students to assess integrity of dressing and ensure [...] 12 Crescencio Roach RN CWOCN Contact Via [facility] Nurse (Umesh) Dept. 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 ADDENDUM 1320: Spoke with Adela @ [facility] and confirmed that if patient discharges over the weekend then modular home crew member will see patient on Thursday 03/15 to resume home care and change vac dressing. If patient discharges on Thursday 03/15 then vac dressing will need to be changed at hospital prior to discharge and home care will resume services on 03/17 for the next wound vac dressing change. Luciana Chaparro RN Auto Parts Clerk [facility] [phone] * Tanvi Smiley RN - 03/11/2024 1:43 PM CDT Care Management Follow Up Length of Stay (days): 5 Expected Discharge Date: 03/12/2024 Concerns to be Addressed: discharge planning Patient plan of care discussed at interdisciplinary rounds: Yes Anticipated Discharge Disposition: Home Care Patient/Family in Agreement with the Plan: yes Referrals Placed by LES/DAISY: Homecare Additional Information: Received call from [facility] with questions regarding discharge. They needed confirmation [...] RN aware. 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 Fox Watson MD Hospitalist Service [facility] Interval History Symptoms No fever or chills [...] no tenderness , Bowel Sounds are Positive TECHNOLOGIES DIVISION CHAIR: Alert, Oriented x 3, Data Recent Labs [...] from the original note were not included. [facility] Medicine Progress Note - Hospitalist Service Date [...] Repeat LFT's improved this am Atrial fibrillation SHOE CLERK metoprolol dose of 50mg/day has been on [...] 2-4 Days Apple Burt DO Hospitalist Service [facility] Securely message with [employer] (more info) Text page via [facility] Paging/Directory Interval History Slept well. Feeling [...] 1646 03/06/2024 1707 Blood Culture Wrist, Left [[id number]] Blood from Wrist, Left In process Component Value No component results 03/06/2024 1639 03/06/2024 1707 Blood Culture Arm, Left [[id number]] Blood from Arm, Left In process Component Value No component results 03/06/2024 0254 03/06/2024 0712 Urine Culture [[id number]] Urine, Catheter In process Component Value No component results 03/06/2024 0155 03/06/2024 1535 Blood Culture Hand, Left [[id number]] (Abnormal) Blood from Hand, Left Preliminary result Component Value Culture Positive on the 1st day of incubation [P] Gram negative bacilli [P] 1 of 2 bottles 03/06/2024 0155 03/06/2024 1746 Verigene GN Panel [[id number]] (Abnormal) Blood from Hand, Left Final result [...] Influenza A/B, RSV, & SARS-CoV2 PCR (COVID-19) Nose[[id number]] Swab from Nose Final result Component Value Influenza A PCR Negative Influenza B PCR Negative RSV PCR Negative SARS CoV2 PCR Negative NEGATIVE: SARS-CoV-2 (COVID-19) RNA not detected, presumed negative. 03/06/2024 0056 03/06/2024 1802 Blood Culture Peripheral Blood [[id number]] (Abnormal) Peripheral Blood Preliminary result Component Value [...] from the original note were not included. [facility] Medicine Progress Note - Hospitalist Service Date [...] Daughter changes packing on other Will request [facility] consultation when available Hypokalemia Will supplement per protocol Rheumatoid arthritis: Stress dose steroids ordered Chronic prednisone dose on hold Elevated LFTs Likely secondary to hypoperfusion from hypotension and sepsis Repeat LFT's in the am Atrial fibrillation SHOE CLERK metoprolol dose of 50mg/day - on hold [...] 2-4 Days Apple Burt DO Hospitalist Service [facility] Securely message with [employer] (more info) Text page via [employer] Paging/Directory Interval History Feeling ok. Hungry. No [...] 1646 03/06/2024 1707 Blood Culture Wrist, Left [[id number]] Blood from Wrist, Left In process Component Value No component results 03/06/2024 1639 03/06/2024 1707 Blood Culture Arm, Left [[id number]] Blood from Arm, Left In process Component Value No component results 03/06/2024 0254 03/06/2024 0712 Urine Culture [[id number]] Urine, Catheter In process Component Value No component results 03/06/2024 0155 03/06/2024 1535 Blood Culture Hand, Left [[id number]] (Abnormal) Blood from Hand, Left Preliminary result Component Value Culture Positive on the 1st day of incubation [P] Gram negative bacilli [P] 1 of 2 bottles 03/06/2024 0155 03/06/2024 1535 Verigene GN Panel [[id number]] Blood from Hand, Left In process Component Value No component results 03/06/2024 0145 03/06/2024 0228 Symptomatic Influenza A/B, RSV, & SARS-CoV2 PCR (COVID-19) Nose[[id number]] Swab from Nose Final result Component Value Influenza A PCR Negative Influenza B PCR Negative RSV PCR Negative SARS CoV2 PCR Negative NEGATIVE: SARS-CoV-2 (COVID-19) RNA not detected, presumed negative. 03/06/2024 0056 03/06/2024 1701 Blood Culture Peripheral Blood [[id number]] (Abnormal) Peripheral Blood Preliminary result Component Value [...] EXAM: XR CHEST PORT 1 VIEW LOCATION: [facility] DATE: 03/06/2024 INDICATION: Fever COMPARISON: 12/21/2013 Impression IMPRESSION: Mild cardiac enlargement. Normal pulmonary vascularity. Linear scarring right lung base. Marked vascular calcification. Postoperative changes thoracic and lumbar spine. XR Chest Port 1 View Narrative EXAM: XR CHEST PORT 1 VIEW LOCATION: [facility] DATE: 03/06/2024 INDICATION: central line confirmation of placement COMPARISON: 03/06/2024 1:28 AM Impression IMPRESSION: Interval placement of a right IJ central venous catheter which courses at least to the level of the superior cavoatrial junction but is partially obscured by overlapping metallic spinal hardware. Otherwise no interval change. documented in this encounter H&P Notes * Chago Vicente DO - 03/06/2024 5:40 AM CDT [facility] Hospitalist H&P Name: Prerna Major Date of : 1945 Age: [age] year old Date of admission: 03/06/2024 Primary care provider: [facility], [facility]- Assessment and Plan: Prerna Major is [...] but are working on obtaining records from [place]. The patient does report a severe anaphylactic [...] VAC on 1 of these. Will request [facility] consultation. I do not suspect that her [...] activities per the note. Addendum: Records from [place] came in previous urine cultures were resistant [...] but are working on obtaining records from [place]. The patient does report a severeanaphylactic allergy [...] Medication Sig Last Dose Taking? Auth Provider Drug Room Clerk End Date bisacodyl (DULCOLAX) 10 MG suppository [...] EXAM: XR CHEST PORT 1 VIEW LOCATION: [facility] DATE: 03/06/2024 INDICATION: Fever COMPARISON: 12/21/2013 Impression IMPRESSION: Mild cardiac enlargement. Normal pulmonary vascularity. Linear scarring right lung base. Marked vascular calcification. Postoperative changes thoracic and lumbar spine. XR Chest Port 1 View Narrative EXAM: XR CHEST PORT 1 VIEW LOCATION: [facility] DATE: 03/06/2024 INDICATION: central line confirmation of placement COMPARISON: 03/06/2024 1:28 AM Impression IMPRESSION: Interval placement of a right IJ central venous catheter which courses at least to the level of the superior cavoatrial junction but is partially obscured by overlapping metallic spinal hardware. Otherwise no interval change. Chago Vicente DO [facility] [place] [address] 03/06/2024 documented in this encounter Consult Notes [...] low appetite or changes to PO intakes SHOE CLERK. - Use of oral supplements: None. - [...] Dias RDN, LD Clinical Dietitian 3rd floor/ICU: [phone] All other floors: [phone] Weekend/holiday: [phone] Office: [phone] * Tanvi Smiley RN - 03/09/2024 3:01 PM CDTAssociated Order(s): CARE MANAGEMENT / SOCIAL WORK IP CONSULT Care Management Initial Consult General Information Assessment completed with: Patient, Children, Type of CM/SW Visit: Initial Assessment Primary Care Provider verified and updated as needed: Readmission within the last 30 days: Reason for Consult: discharge planning Advance Care Planning: Communication Assessment Patient's communication style: spoken language (Vietnamese or Bilingual) Hearing Difficulty or Deaf: yes [...] care services: Yes Skilled Home Care Services: Care Home, Home Health Aid Community Resources: Equipment currently [...] file Social Connections: Unknown (02/03/2022) Received from [employer] [facility] Social Connections Frequency [...] with her and she is their primary youth care specialist. They have a wheelchair, lift, and hospital bed. She feels that they have the appropriate DME at this time. She does not qualify for any [facility] services at this time due to income. Patient is open to [facility] for RN and SUPERVISOR OF COMMUNICATIONS. This was verified and they will need new orders ondischarge. They are currently providing wound vac changes twice a week and the third dressing change is done at [place] [facility]. They also assist with her other wound and the daughter performsthis wound care the other days. Daughter states that there has been concern that this wound is tunneling and may connect with the other that has the vac. They have been talking about placing a wound vac on this as well per the daughter. Updated [facility] nurse on this information. CM team will continue to follow for discharge planning. Tanvi Smiley RN BSN OCN Auto Parts Clerk [facility] [phone] * Crescencio Roach RN - 03/09/2024 11:58 AM CDTAssociated Order(s): WOUND OSTOMY CONTINENCE NURSE IP CONSULT Images from the original note were not included. 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 Is followed at wound clinic in [place] and is currently using NPWT. Patient requests [...] couple months. Is followedat wound clinic in [place]. Currently using Vashe packing. Per patient they [...] prior to replacing NPWT Suction setting: -100 associate dean of students to assess integrity of dressing and ensure [...] 12 Crescencio Roach RN CWOCN Contact Via [facility] Nurse (Umesh) Dept. Office Number: [phone] * Robby Simms MD - 03/06/2024 11:00 [...] EXAM: XR CHEST PORT 1 VIEW LOCATION: [facility] DATE: 03/06/2024 INDICATION: Fever COMPARISON: 12/21/2013 Impression IMPRESSION: Mild cardiac enlargement. Normal pulmonary vascularity. Linear scarring right lung base. Marked vascular calcification. Postoperative changes thoracic and lumbar spine. XR Chest Port 1 View Narrative EXAM: XR CHEST PORT 1 VIEW LOCATION: [facility] DATE: 03/06/2024 INDICATION: central line confirmation of [...] line CODE: DNR/okay to intubate Dispo: ICU [facility] STAFF NOTE I am managing [...] the critical care unit. Robby Simms MD [facility] Nursehydraulic pile hammer operator, Pulmonary/CC Pager: [phone] documented in this encounter ED Notes * [...] Notes I reviewed Care Everywhere and updated [facility]. Past Medical History Medical History [...] Bilirubin Urine Negative Ketones Urine Negative Specific [place] Urine 1.018 Blood Urine Small (*) pH [...] Right bundle branch block Rate 101 bpm. MO interval 144 ms. QRS duration 116 ms. [...] and Vascular access Consent: Verbal from Family Humphreys Protocol: Humphreys protocol was followed and time out conducted [...] ICU received her urine culture results from [facility] showing resistant to cephalosporins and sensitivity to imipenem. I have communicated this to the [facility] hospitalist who will change antibiotics accordingly Critical [...] MAR) Taken 03/14/2024 0548 by Angelina Alvarado, restaurant expeditor Interventions: medication (see MAR) Taken 03/14/2024 0248 [...] shift note. Outcome: Progressing Flowsheets (Taken 03/13/2024 3883) Outcome Evaluation: afebrile, wound vac intact, delacruz [...] BP, gave extra dose of metoprolol, 1x, [id number] given for generalized pain and wound care, [...] by Angelina Alvarado RN Head of Bed ([facility]) Positioning: HOB at 20-30 degrees [...] shift note. Outcome: Progressing Flowsheets (Taken 03/11/2024 2566) Outcome Evaluation: wound care done Plan of [...] Recent Flowsheet Documentation Taken 03/10/2024 1830 by Chalrotte Neri RN Body Position: refuses positioning Taken [...] Flowsheet Documentation Taken 03/09/20242156 by Cici James RNrestaurant expeditor Interventions: medication (see MAR) Intervention: Provide Person-Centered [...] Flowsheet Documentation Taken 03/09/2024602 by Nicole Lowery RNrestaurant expeditor Interventions: medication (see MAR) repositioned Taken 03/09/2024 0020 by Nicole Lowery RNrestaurant expeditor Interventions: repositioned Goal: Readiness for Transition of [...] Flowsheet Documentation Taken 03/09/2024602 by Nicole Lowery RNrestaurant expeditor Interventions: medication (see MAR) repositioned Taken 03/09/2024 0020 by Nicole Lowery RNrestaurant expeditor Interventions: repositioned Problem: Fall Injury Risk Goal: [...] Recent Flowsheet Documentation Taken 03/08/2024 0730 by Fidencio Cleveland RN Pain Management Interventions: medication (see [...] Documentation Taken 03/08/2024 0638 by Nicole Lowery, restaurant expeditor Interventions: medication (see MAR) Taken 03/08/202448 by Nicole Lowery, restaurant expeditor Interventions: medication (see MAR) repositioned Goal: Readiness [...] Documentation Taken 03/08/2024 06 by Nicole Lowery RNrestaurant expeditor Interventions: medication (see MAR) Taken 03/08/202448 by Nicole Lowery RNrestaurant expeditor Interventions: medication (see MAR) repositioned Intervention: Prevent [...] shift note. Outcome: Progressing Flowsheets (Taken 03/07/2024 8475) Outcome Evaluation: Delacruz draining clear/yellow. WOC consult. [...] supports utilized tubing/devices free from skin contact [id number] areas padded Taken 03/07/2024 0000 by Charlotte Torres RN Body Position: (prefers left side) left side-lying heels elevated Skin Protection: incontinence pads utilized adhesive use limited silicone foam dressing in place transparent dressing maintained Device Skin Pressure Protection: absorbent pad utilized/changed positioning supports utilized tubing/devices free from skin contact [id number] areas padded Taken 03/06/20242238 by Charlotte Torres [...] repositioned Taken 03/06/20241999 by Kampa, Charlotte B, restaurant expeditor Interventions: (not due for pain medication at this time) repositioned other (see comments) Intervention: Provide Person-Centered Care Recent Flowsheet Documentation Taken 03/07/2024421 by Charlotte Torres RN Trust Relationship/Rapport: care explained choices provided empathic listening provided questions answered questions encouraged reassurance provided thoughts/feelings acknowledged Taken 03/07/2024 0000 by Charlotte Torres RN Trust Relationship/Rapport: care [...] * Pharmacy-Admission Medication History - Nimco Barbour, [facility] - 03/06/2024 11:32 AM CDT Pharmacist Admission [...] taking 2 tabs daily. Changes made to SHOE CLERK medication list: Added: probiotic, tylenol, zinc, vitamin c, naproxen, lasix, gabapnetin, metoprolol xl, oxycodone, kcl, prednisone 10 daily Deleted: from 2013:dulcolas supp prn, ativan 0.5mg bid prn, metoprolol 50mg bid, collagen, zofran prn, miralax prn, prednisone 5mg daily, senna/doc 1 bid Changed: None Allergies reviewed with patient and updates made in EHR: yes Medication History Completed By: Nimco Barbour RPH 03/06/2024 11:32 AM SHOE CLERK Med List Medication Sig Last Dose acetaminophen [...] LAB - BLOOD ORDER TYRON RH LABORATORY [facility] Care Lab [address] Lab (1st floor, no room number) [place] [address], [facility] * (ABNORMAL) Basic metabolic panel (03/14/2024 6:02 [...] MD LAB - BLOOD ORDER TYRON LABORATORY [facility] Care Lab [address] [facility] Lab (1st floor, no room number) [place] [address] [[email or web address]] * Potassium (03/13/2024 5:04 AM CDT) Potassium 3.9 3.4 - 5.3 mmol/L 03/13/2024 5:44 AM CDT LABORATORY Blood TOPOGRAPHY UNKNOWN / Unknown VAD(CVC, PICC) / Unknown 03/13/2024 5:04 AM CDT 03/13/2024 5:22 AM CDT Don Ramirez MD LAB - BLOOD ORDER TYRON RH LABORATORY [facility] Care Lab [address] Lab (1st floor, no room number) [place] [address] [[email or web address]] * EKG 12-lead, tracing only (03/12/2024 11:32 AM CDT) Systolic Blood Pressure mmHg RADIOLOGY RESULTS Diastolic Blood Pressure mmHg RADIOLOGY RESULTS Ventricular Rate 89 BPM RAD IOLOGY RESULTS Atrial Rate 89 BPM RADIOLOG Y RESULTS MO Interval 128 ms RADIOLOG Y RESULTS QRS Duration 118 ms RADIOLO GY RESULTS QT 376 ms RADIOLOGY RESULTS QTc 457 ms RADIOLOGY RESULTS P Byron 59 degrees RADIOLOGY RESULTS R AXIS 93 degrees RADIOLOGY RESULTS T Byron 53 degrees RADIOLOGY RESULTS Interpretation ECG Sinus [...] MD LAB - BLOOD ORDERABL ES LABORATORY [facility] Care Lab [address] [facility] Lab (1st floor, no room number) [place] [address] [[email or web address]] * (ABNORMAL) Basic metabolic panel (03/12/2024 6:03 AM CDT) [facility] Sodium 143 135 - 145 mmol/L 03/12/2024 [...] LAB - BLOOD ORDERABL ES RH LABORATORY [facility] Care Lab [address] [facility] Lab (1st floor, no room number) [place] [address] [[email or web address]] * (ABNORMAL) CBC with platelets (03/11/2024 1:51 [...] - BLOOD ORDERABL ES Performing Organization Address City/[facility]/ZIP Co de Phone Number [facility] Acute Care Lab [address] Lab (1st floor, no room number) [place] [address] [[email or web address]] * Potassium (03/11/2024 1:51 PM CDT) Potassium 4.3 3.4 - 5.3 mmol/L 03/11/2024 2:18 PM CDT LABORATORY Blood BLOOD SPECIMEN / Unknown Venipuncture / Unknown 03/11/2024 1:51 PM CDT 03/11/2024 2:00 PM CDT Fox Watson MD LAB - BLOOD ORDERABL ES Performing Organization Address [facility] Co de Phone Number [facility] Acute [facility] Emergency Department Lab [address] Lab (1st floor, no room number) [place] [phone] [[email or web address]] * (ABNORMAL) Basic metabolic panel (03/11/2024 6:18 [...] LAB - BLOOD ORDERABL ES RH LABORATORY [facility] Care Lab [address] [facility] Lab (1st floor, no room number) [place] [address] [[email or web address]] * (ABNORMAL) CBC with platelets (03/10/2024 2:59 [...] Watson MD LAB - BLOOD ORDERABL ES [facility] Care Lab [address] Lab (1st floor, no room number) [place] [address], [facility] * Potassium (03/10/2024 5:23 AM CDT) Potassium 3.6 3.4 - 5.3 mmol/L 03/10/2024 5:58 AM CDT RH LABORATORY Blood VENOUS BLOOD / Unknown VAD(CVC, PICC) / Unknown 03/10/2024 5:23 AM CDT 03/10/2024 5:29 AM CDT Fox Watson MD LAB - BLOOD ORDERABL ES Performing Organization Address City/[facility]/ZIP Co de Phone Number [facility] Care Lab [address] Lab (1st floor, no room number) [place] [address], [facility] * Potassium (03/09/2024 6:16 AM CDT) Potassium 3.9 3.4 - 5.3 mmol/L 03/09/2024 7:13 AM CDT RH LABORATORY Blood VENOUS LINE / Unknown VAD(CVC, PICC) / Unknown 03/09/2024 6:16 AM CDT 03/09/2024 6:29 AM CDT Chago Vicente DO LAB - BLOOD ORDERAB LES [facility] Care Lab [address] Lab (1st floor, no room number) [address] * (ABNORMAL) Glucose by meter (03/09/2024 2:17 AM CDT) GLUCOSE BY METER POCT 171(H) 70 - 99 mg/dL 03/09/2024 2:29 AM CDT RH LABORATORY POC Blood, Capillary BLOOD SPECIMEN / Unknown 03/09/2024 2:17 AM CDT 03/09/2024 2:29 AM CDT Chago Vicente DO LAB - BEAKER POCT LABORATORY POC [facility] Care Lab [address] Lab (1st floor, no room number) [address] * Potassium (03/08/2024 9:21 AM CDT) Potassium 3.9 3.4 - 5.3 mmol/L 03/08/2024 9:43 AM CDT LABORATORY Blood VENOUS LINE / Unknown VAD(CVC, PICC) / Unknown 03/08/2024 9:21 AM CDT 03/08/2024 9:25 AM CDT Apple Burt DO LAB - BLOOD O RDERABLES LABORATORY [facility] Care Lab [address] Lab (1st floor, no room number) [address] * (ABNORMAL) Glucose by meter (03/08/2024 2:24 AM CDT) GLUCOSE BY METER POCT 165(H) 70 - 99 mg/dL 03/08/2024 2:32 AM CDT RH LABORATORY POC Blood, Capillary BLOOD SPECIMEN / Unknown 03/08/2024 2:24 AM CDT 03/08/2024 2:32 AM CDT Chago Vicente DO LAB - BEAKER POCT LABORATORY [facility] Acute Care Lab [address] Lab (1st floor, no room number) [place] [phone] [place] [address] * Lactic Acid Whole Blood w/ 1x repeat in 2 hrs when >2 (03/07/2024 6:54 PM CDT) Lactic Acid, Initial 1.9 0.7 - 2.0 mmol/L 03/07/2024 7:12 PM CDT LABORATORY Blood BLOOD SPECIMEN / Unknown VAD(CVC, PICC) / Unknown 03/07/2024 6:54 PM CDT 03/07/2024 7:10 PM CDT Apple Burt DO LAB - BLOOD O RDERABLES Performing Organization Address [facility]/ZIP Co de Phone Number [facility] Care Lab [address] Lab (1st floor, no room number) [place] [phone] [[email or web address]] * (ABNORMAL) Glucose by meter (03/07/2024 4:03 PM CDT) GLUCOSE BY METER POCT 174(H) 70 - 99 mg/dL 03/07/2024 4:11 PM CDT LABORATORY POC Blood, Capillary BLOOD SPECIMEN / Unknown 03/07/2024 4:03 PM CDT 03/07/2024 4:11 PM CDT Chago Vicente DO LAB - BEAKER POCT LABORATORY [facility] Care Lab [address] Lab (1st floor, no room number) [place] [phone] [[email or web address]] * (ABNORMAL) Glucose by meter (03/07/2024 12:13 PM CDT) GLUCOSE BY METER POCT 169(H) 70 - 99 mg/dL 03/07/2024 12:20 PM CDT LABORATORY POC Blood, Capillary BLOOD SPECIMEN / Unknown 03/07/2024 12:13 PM CDT 03/07/2024 12:20 PM CDT Chago Vicente DO LAB - BEAKER POCT Performing Organization Address City/[facility]/ZIP Co de Phone Number LABORATORY [facility] Acute Care Lab [address] Lab (1st floor, no room number) [place] [address] [[email or web address]] * (ABNORMAL) Glucose by meter (03/07/2024 8:08 AM CDT) GLUCOSE BY METER POCT 124(H) 70 - 99 mg/dL 03/07/2024 8:15 AM CDT LABORATORY POC Blood, Capillary BLOOD SPECIMEN / Unknown 03/07/2024 8:08 AM CDT 03/07/2024 8:15 AM CDT Chago JACKSON - BEAKER POCT Performing Organization Address [facility]/ZIP Co de Phone Number LABORATORY [facility] Lab [address] Lab (1st floor, no room number) [place] [address], [facility] * (ABNORMAL) Hemoglobin A1c (03/07/2024 4:31 AM CDT) Hemoglobin A1C 6.6(H) <5.7 % 03/09/2024 11:29 AM CDT LABORATORY Comment: Normal <5.7% Prediabetes 5.7-6.4% ?? Diabetes 6.5% or higher Note: Adopted from ADA consensus guidelines. Blood VENOUS LINE / Unknown VAD(CVC, PICC) / Unknown 03/07/2024 4:31 AM CDT 03/07/2024 4:36 AM CDT Chago Vicente DO LAB - BLOOD ORDERAB LES [facility] Lab [address] Lab (1st floor, no room number) [place] [address], [facility] * (ABNORMAL) Comprehensive metabolic panel (03/07/2024 4:31 AM CDT) [facility] Sodium 145 135 - 145 mmol/L 03/07/2024 [...] LAB - BLOOD O RDERABLES RH LABORATORY [facility] Care Lab [address] [facility] Lab (1st floor, no room number) [place] [address] [[email or web address]] * (ABNORMAL) CBC with platelets (03/07/2024 4:31 [...] Burt DO LAB - BLOOD O RDERABLES [facility] Lab [address] Lab (1st floor, no room number) [place] [address] [[email or web address]] * (ABNORMAL) Glucose by meter (03/07/2024 4:14 AM CDT) GLUCOSE BY METER POCT 135(H) 70 - 99 mg/dL 03/07/2024 4:20 AM CDT LABORATORY POC Blood, Capillary BLOOD SPECIMEN / Unknown 03/07/2024 4:14 AM CDT 03/07/2024 4:20 AM CDT Chago Vicente DO LAB - BEAKER POCT Performing Organization Address [facility]/ZIP Co de Phone Number [facility] Lab [address] Lab (1st floor, no room number) [place] [phone] [[email or web address]] * Potassium (03/06/2024 9:46 PM CDT) Potassium 4.0 3.4 - 5.3 mmol/L 03/06/2024 10:13 PM CDT RH LABORATORY Blood VENOUS LINE / Unknown VAD(CVC, PICC) / Unknown 03/06/2024 9:46 PM CDT 03/06/2024 9:52 PM CDT Apple Burt DO LAB - BLOOD O RDERABLES Performing Organization Address City/[facility]/ZIP Co de Phone Number [facility] Lab [address] Lab (1st floor, no room number) [place] [address] [[email or web address]] * (ABNORMAL) Glucose by meter (03/06/2024 7:42 PM CDT) GLUCOSE BY METER POCT 149(H) 70 - 99 mg/dL 03/06/2024 7:49 PM CDT RH LABORATORY POC Blood, Capillary BLOOD SPECIMEN / Unknown 03/06/2024 7:42 PM CDT 03/06/2024 7:49 PM CDT Chago Vicente DO LAB - BEAKER POCT LABORATORY [facility] Acute [facility] Emergency Department Lab [address] Lab (1st floor, no room number) [place] [address] [[email or web address]] * Blood Culture Wrist, Left (03/06/2024 4:46 PM CDT) Culture No Growth 03/11/2024 6:46 PM CDT [facility] LABORATORY Blood STRUCTURE OF LEFT WRIST REGION / Unknown Venipuncture / Unknown 03/06/2024 4:46 PM CDT 03/06/2024 5:07 PM CDT Apple Burt DO LAB - MICRO G ENERAL ORDERABLES [facility] LABORATORY [facility] Inf. Diseases Diag. Lab [address] [facility], [address] [place] [address] [[email or web address]] * Blood Culture Arm, Left (03/06/2024 4:39 PM CDT) Culture No Growth 03/11/2024 6:46 PM CDT [facility] LAB[facility] Blood STRUCTURE OF LEFT UPPER LIMB / Unknown Venipuncture / Unknown 03/06/2024 4:39 PM CDT 03/06/2024 5:07 PM CDT Apple Burt DO LAB - MICRO G ENERAL ORDERABLES [facility] LABORATORY [facility] Inf. Diseases Diag. Lab [address] [facility], [address] [place] [address], [facility] * (ABNORMAL) Glucose by meter (03/06/2024 4:06 PM CDT) GLUCOSE BY METER POCT 123(H) 70 - 99 mg/dL 03/06/2024 4:13 PM CDT LABORATORY POC Blood, Capillary BLOOD SPECIMEN / Unknown 03/06/2024 4:06 PM CDT 03/06/2024 4:13 PM CDT Chago JACKSON - HERIBERTO POCT LABORATORY [facility] Care Lab [address] Lab (1st floor, no room number) [place] [address], [facility] * (ABNORMAL) Glucose by meter (03/06/2024 12:01 PM CDT) GLUCOSE BY METER POCT 156(H) 70 - 99 mg/dL 03/06/2024 1:40 PM CDT LABORATORY POC Blood, Capillary BLOOD SPECIMEN / Unknown 03/06/2024 12:01 PM CDT 03/06/2024 1:40 PM CDT Chago JACKSON - HERIBERTO POCT LABORATORY [facility] Acute Care Lab [address] Lab (1st floor, no room number) [place] [address], [facility] * (ABNORMAL) Comprehensive metabolic panel (03/06/2024 10:05 [...] DO LAB - BLOOD O RDERABLES LABORATORY [facility] Care Lab [address] Lab (1st floor, no room number) [place] [address] [[email or web address]] * (ABNORMAL) Glucose by meter (03/06/2024 7:58 AM CDT) [facility] GLUCOSE BY METER POCT 120(H) 70 - 99 mg/dL 03/06/2024 8:04 AM CDT LABORATORY POC Blood, Capillary BLOOD SPECIMEN / Unknown 03/06/2024 7:58 AM CDT 03/06/2024 8:04 AM CDT Chago Vicente DO LAB - BEAKER POCT LABORATORY POC [facility] Care Lab [address] Lab (1st floor, no room number) [place] [address] [[email or web address]] * XR Chest Port 1 View (03/06/2024 [...] EXAM: XR CHEST PORT 1 VIEW LOCATION: [facility] DATE: 03/06/2024 INDICATION: central line confirmation of placement COMPARISON: 03/06/2024 1:28 AM Procedure Note Jeremiah Crocker MD - 03/06/2024 EXAM: XR CHEST PORT 1 VIEW LOCATION: [facility] DATE: 03/06/2024 INDICATION: central line confirmation of [...] Atrial Rate 101 BPM RADIOLOG Y RESULTS MO Interval 144 ms RADIOLOG Y RESULTS QRS Duration 116 ms RADIOLO GY RESULTS QT 360 ms RADIOLOGY RESULTS QTc 466 ms RADIOLOGY RESULTS P Byron 70 degrees RADIOLOGY RESULTS R AXIS 60 degrees RADIOLOGY RESULTS T Byron 33 degrees RADIOLOGY RESULTS Interpretation ECG Sinus tachycardia Right bundle branch block Abnormal ECG When compared with ECG of 03-DEC-2013 08:21, Sinus rhythm has replaced Atrial fibrillation Vent. rate has decreased BY ??54 BPM Right bundle branch block is now Present Confirmed by - EMERGENCY ROOM, PHYSICIAN ([id number]), tape editor THELMA QUINONES ([id number]) on 03/09/2024 7:49:22 AM RADIOLOGY RESULTS 03/06/2024 [...] Velazquez MD LAB - BLOOD ORDERABL ES [facility] Acute Care Lab [address] [facility] Lab (1st floor, no room number) [place] [address], [facility] * (ABNORMAL) Urine Culture (03/06/2024 2:54 [...] coli Cefazolin DAWSON <=4 ug/mL: Susceptible Comment:Cefazolin ID C breakpoints are for the treatment of [...] coli Cefazolin DAWSON 8 ug/mL: Susceptible Comment:Cefazolin ID C breakpoints are for the treatment of [...] - MICRO GENERAL ORDERABLES [facility] LABORATORY [facility] Inf. Diseases Diag. Lab [address] [facility], [address] [place] [address] [[email or web address]] * (ABNORMAL) UA with Microscopic (03/06/2024 2:54 AM CDT) Color Urine Yellow Colorless, Straw, Light Yellow, Yellow 03/06/2024 4:11 AM CDT LABORATORY Appearance Urine Cloudy(A) Clear 03/06/20 24 4:11 AM CDT LABORATORY Glucose Urine Negative Negative mg/dL 03/06/2024 4:11 AM CDT RH LABORATORY Bilirubin Urine Negative Negative 4:11 AM CDT RH LABORATORY Ketones Urine Negative Negative mg/dL 03/06/2024 4:11 AM CDT LABORATORY Specific [place] Urine 1.018 1.003 - 1.035 03/06/2024 4:11 [...] MD LAB - URINE ORDERABL ES LABORATORY [facility] Care Lab [address] Lab (1st floor, no room number) [place] [address], [facility] * (ABNORMAL) Verigene GN Panel (03/06/2024 [...] - MICRO GENERAL ORDERABLES [facility] LABORATORY [facility] Inf. Diseases Diag. Lab [address] [facility], Room [place] [phone] [[email or web address]] * (ABNORMAL) Blood Culture Hand, Left (03/06/2024 [...] - MICRO GENERAL ORDERABLES Performing Organization Address [facility] Co de Phone Number [facility] LABORATORY [facility] Inf. Diseases Diag. Lab [address] [facility], Room [place] [phone] * Symptomatic Influenza A/B, RSV, & SARS-CoV2 PCR (COVID-19) Nose (03/06/2024 1:45 AM CDT) Pathologist [facility] Influenza A PCR Negative Negative 03/06/2024 2:28 [...] the Xpert Xpress CoV2/Flu/RSV Assay on the [employer] LabXpert Instrument. This test should be ordered for [...] management. This test was validated by the [facility] [employer]. These laboratories are certified under the Clinical Laboratory Improvement Amendments of 1988 (CLIA-88) as qualified to perform high complexity laboratory testing. Chago Velazquez MD LAB - MICRO GENERAL ORDERABLES [facility] Acute Care Lab [address] [facility] Lab (1st floor, no room number) [place] [address] [[email or web address]] * XR Chest Port 1 View (03/06/2024 1:33 AM CDT) Anatomical Region Laterality Modality Chest Digital Radiogra phy 03/06/2024 1:33 AM CDT Impressions 03/06/2024 1:36 AM CDT IMPRESSION: Mild cardiac enlargement. Normal pulmonary vascularity. Linear scarring right lung base. Marked vascular calcification. Postoperative changes thoracic and lumbar spine. Narrative 03/06/2024 1:36 AM CDT EXAM: XR CHEST PORT 1 VIEW LOCATION: [facility] DATE: 03/06/2024 INDICATION: Fever COMPARISON: 12/21/2013 Procedure Note Darryl Garcia MD - 03/06/2024 EXAM: XR CHEST PORT 1 VIEW LOCATION: [facility] DATE: 03/06/2024 INDICATION: Fever COMPARISON: 12/21/2013 IMPRESSION: [...] - MICRO GENERAL ORDERABLES [facility] LABORATORY [facility] Inf. Diseases Diag. Lab [address] [facility], [address] [place] [address] [[email or web address]] * (ABNORMAL) Procalcitonin (03/06/2024 12:52 AM CDT) [facility] Procalcitonin 2.44(H) <0.50 ng/mL 03/06/2024 1:41 AM [...] See Procalcitonin Guidance document for more details. [email or web address] Factors that may affect PCT levels (not [...] - BLOOD ORDERABL ES Performing Organization Address [facility]/ZIP Co de Phone Number [facility] Lab [address] Lab (1st floor, no room number) [address] [place] [address] * Extra Red Top Tube (03/06/2024 12:52 AM CDT) Hold Specimen [facility] 03/06/2024 2:01 AM CDT RH LABORATORY Blood BLOOD SPECIMEN / Unknown Venipuncture / Unknown 03/06/2024 12:52 AM CDT 03/06/2024 12:59 AM CDT Chago Velazquez MD LAB - BLOOD ORDERABL ES Performing Organization Address [facility]/ZIP Co de Phone Number [facility] Lab [address] Lab (1st floor, no room number) [address] * Extra Blue Top Tube (03/06/2024 12:52 AM CDT) Hold Specimen [facility] 03/06/2024 2:01 AM CDT RH LABORATORY Blood BLOOD SPECIMEN / Unknown Venipuncture / Unknown 03/06/2024 12:52 AM CDT 03/06/2024 12:59 AM CDT Chago Velazquez MD LAB - BLOOD ORDERABL ES Performing Organization Address City/[facility]/ZIP Co de Phone Number [facility] Care Lab [address] Lab (1st floor, no room number) [address] * (ABNORMAL) CBC with platelets and [...] - BLOOD ORDERABL ES Performing Organization Address [facility]/ZIP Co de Phone Number LABORATORY [facility] Care Lab [address] Lab (1st floor, no room number) [place] [phone] [[email or web address]] * (ABNORMAL) Lactic acid whole blood with 1x repeat in 2 hr when >2 (03/06/2024 12:52 AM CDT) Lactic Acid, Initial 4.4(HH) 0.7 - 2.0 mmol/L 03/06/2024 1:29 AM CDT LABORATORY Blood BLOOD SPECIMEN / Unknown Venipuncture / Unknown 03/06/2024 12:52 AM CDT 03/06/2024 12:59 AM CDT Chago Velazquez MD LAB - BLOOD ORDERABL ES Performing Organization Address [facility] Co de Phone Number LABORATORY [facility] Care Lab [address] Lab (1st floor, no room number) [place] [phone] [place] [address] * (ABNORMAL) Comprehensive metabolic panel (03/06/2024 12:52 [...] MD LAB - BLOOD ORDERABL ES LABORATORY [facility] Care Lab [address] [facility] Lab (1st floor, no room number) [place] [address] [[email or web address]] documented in this encounter Visit Diagnoses Diagnosis [...] documented as of this encounter 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
--- OUTSIDE RECORDS SUMMARY | 2024-03-26 16:38 | XMS_ITS | Referral Summary ---
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 [facility] Sodium 140 135 - 145 mmol/L 03/14/2024 [...] LAB - BLOOD ORDER TYRON RH LABORATORY [facility] [address] Lab (1st floor, no room number) [place] [address], [facility] * (ABNORMAL) CBC with platelets (03/14/2024 [...] - BLOOD ORDER TYRON Performing Organization Address City/[facility]/ZIP Co de Phone Number [facility] [address] [facility] (1st floor, no room number) [address] * Potassium (03/13/2024 5:04 AM CDT) Only the most recent of6 resultswithin the time period is included. Potassium 3.9 3.4 - 5.3 mmol/L 03/13/2024 5:44 AM CDT LABORATORY Blood TOPOGRAPHY UNKNOWN / Unknown VAD(CVC, PICC) / Unknown 03/13/2024 5:04 AM CDT 03/13/2024 5:22 AM CDT Don Ramirez MD LAB - BLOOD ORDER TYRON Performing Organization Address [facility]/ZIP Co de Phone Number [facility] [address] [facility] (1st floor, no room number) [place] [phone] * EKG 12-lead, tracing only (03/12/2024 [...] RESULTS QTc 457 ms RADIOLOGY RESULTS P [place] 59 degrees RADIOLOGY RESULTS R [place] 93 degrees RADIOLOGY RESULTS T [place] 53 degrees RADIOLOGY RESULTS Interpretation ECG Sinus rhythm Right bundle branch block Abnormal ECG When compared with ECG of 06-MAR-2024 04:53, Nonspecific T wave abnormality no longer evident in Inferior leads Confirmed by MD ESVIN, KERI ([id number]) on 03/12/2024 10:11:09 PM RADIOLOGY RESULTS 03/12/2024 11:3 2 AM CDT 03/12/2024 10:11 PM CDT Al Gilbert Ashley MD ECG ORDERABLES Performing Organization Address City/[facility]/ZIP Co de Phone Number RADIOLOGY RESULTS * [...] LAB - BEAKER POCT Performing Organization Address [facility] [[email or web address]] Co de Phone Number LABORATORY POC [facility] Lab [address] Lab (1st floor, no room number) [address] * Lactic Acid Whole Blood w/ [...] - BLOOD O RDERABLES Performing Organization Address City/[facility]/ZIP Co de Phone Number LABORATORY [facility] Lab [address] Lab (1st floor, no room number) [address] * (ABNORMAL) Hemoglobin A1c (03/07/2024 4:31 AM CDT) Hemoglobin A1C 6.6(H) <5.7 % 03/09/2024 11:29 AM CDT RH LABORATORY Comment: Normal <5.7% Prediabetes 5.7-6.4% ?? Diabetes 6.5% or higher Note: Adopted from ADA consensus guidelines. Blood VENOUS LINE / Unknown VAD(CVC, PICC) / Unknown 03/07/2024 4:31 AM CDT 03/07/2024 4:36 AM CDT Chago Musahasmukh Vicente DO LAB - BLOOD ORDERAB LES LABORATORY [facility] [address] Lab (1st floor, no room number) [place] [address], [facility] * (ABNORMAL) Comprehensive metabolic panel (03/07/2024 [...] LAB - BLOOD O RDERABLES RH LABORATORY [facility] [address] [facility] Lab (1st floor, no room number) [place] [address], [facility] * Blood Culture Wrist, Left (03/06/2024 4:46 PM CDT) Only the most recent of4 resultswithin the time period is included. Culture No Growth 03/11/2024 6:46 PM CDT [facility] Blood STRUCTURE OF LEFT WRIST REGION / Unknown Venipuncture / Unknown 03/06/2024 4:46 PM CDT 03/06/2024 5:07 PM CDT Apple Burt DO LAB - MICRO G ENERAL ORDERABLES [facility] Inf. Diseases Diag. Lab [address] [facility], [address] [place] [address] * XR Chest Port 1 View [...] EXAM: XR CHEST PORT 1 VIEW LOCATION: [facility] DATE: 03/06/2024 INDICATION: central line confirmation of placement COMPARISON: 03/06/2024 1:28 AM Procedure Note Jeremiah Crocker MD - 03/06/2024 EXAM: XR CHEST PORT 1 VIEW LOCATION: [facility] DATE: 03/06/2024 INDICATION: central line confirmation [...] LAB - BLOOD ORDERABL ES RH LABORATORY [facility] [address] Lab (1st floor, no room number) [place] [address], [facility] * (ABNORMAL) UA with Microscopic (03/06/2024 2:54 AM CDT) Color Urine Yellow Colorless, Straw, Light Yellow, Yellow 03/06/2024 4:11 AM CDT LABORATORY Appearance Urine Cloudy(A) Clear 03/06/20 4:11 AM CDT LABORATORY Glucose Urine Negative Negative mg/dL 03/06/2024 4:11 AM CDT LABORATORY Bilirubin Urine Negative Negative 4:11 AM CDT LABORATORY Ketones Urine Negative Negative mg/dL 03/06/2024 4:11 AM CDT LABORATORY Specific [place] Urine 1.018 1.003 - 1.035 03/06/2024 4:11 [...] MD LAB - URINE ORDERABL ES LABORATORY [facility] [address] [facility] Lab (1st floor, no room number) [place] [address] * (ABNORMAL) Urine Culture (03/06/2024 2:54 [...] coli Cefazolin DAWSON <=4 ug/mL: Susceptible Comment:Cefazolin DE C breakpoints are for the treatment of [...] coli Cefazolin DAWSON 8 ug/mL: Susceptible Comment:Cefazolin DE C breakpoints are for the treatment of [...] - MICRO GENERAL ORDERABLES [facility] Inf. Diseases Diag. Lab [address] [facility], [address] [place] [address], [facility] * (ABNORMAL) Verigene GN Panel (03/06/2024 [...] - MICRO GENERAL ORDERABLES [facility] Inf. Diseases Diag. Lab [address] [facility], [address] [place] [address], [facility] * Symptomatic Influenza A/B, RSV, & [...] the Xpert Xpress CoV2/Flu/RSV Assay on the [employer] GeneXpert Instrument. This test should be ordered [...] management. This test was validated by the [facility]. These laboratories are certified under the Clinical Laboratory Improvement Amendments of 1988 (CLIA-88) as qualified to perform high complexity laboratory testing. Chago Velazquez MD LAB - MICRO GENERAL ORDERABLES [facility] Lab [address] Lab (1st floor, no room number) [address] * Extra Red Top Tube (03/06/2024 12:52 AM CDT) Hold Specimen [facility] 03/06/2024 2:01 AM CDT RH LABORATORY Blood BLOOD SPECIMEN / Unknown Venipuncture / Unknown 03/06/2024 12:52 AM CDT 03/06/2024 12:59 AM CDT Chago Velazquez MD LAB - BLOOD ORDERABL ES Performing Organization Address City/[facility]/ZIP Co de Phone Number [facility] Lab [address] Lab (1st floor, no room number) [address] * Extra Blue Top Tube (03/06/2024 12:52 AM CDT) Hold Specimen [facility] 03/06/2024 2:01 AM CDT RH LABORATORY Blood BLOOD SPECIMEN / Unknown Venipuncture / Unknown 03/06/2024 12:52 AM CDT 03/06/2024 12:59 AM CDT Chago Vealzquez MD LAB - BLOOD ORDERABL ES Performing Organization Address City/[facility]/ZIP Co de Phone Number [facility] [address] Lab (1st floor, no room number) [address] * (ABNORMAL) CBC with platelets and differential (03/06/2024 12:52 AM CDT) WBC Count 26.2(H) 4.0 - 11.0 10e3/uL 03/06/2024 1:01 AM CDT LABORATORY RBC Count 3.86 3.80 - 5.20 [...] MD LAB - BLOOD ORDERABL ES LABORATORY [facility] [address] [facility] Lab (1st floor, no room number) [place] [address] * (ABNORMAL) Procalcitonin (03/06/2024 12:52 AM [...] See Procalcitonin Guidance document for more details. [email or web address]/[email or web address]-mrywmbob-on-[email or web address] ibiot [email or web address] Factors that may affect PCT levels (not [...] Velazquez MD LAB - BLOOD ORDERABL ES [facility] [address] [facility] Lab (1st floor, no room number) [place] [address], [facility] * Lab Result - HIM Scan (02/06/2024 12:00 AM CDT) 02/06/2024 Provider Outside NON-BEAKER LAB TE STING * EKG Cardiac - HIM Scan (01/16/2024 12:00 AM CDT) 01/16/2024 Provider Outside ECG ORDERABLES from Last 3 Months Additional Health Concerns Infection Onset Date 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 & [address] [address] PCP - General Family Medicine 03/09/24
--- OUTSIDE RECORDS SUMMARY | 2024-03-26 16:38 | XMS_ITS | Clinical Summary ---
Author Organization [facility] Address [address] [place] [address] Care Team Providers Care Curtain Drier Name Role Phone Elsewhere, Pcp Primary Care Provider Unavailabl e Source Comments Patient records contain information from all sites at [facility]. For routine questions regarding patient records, call [phone] during business hours, M-F 8:00 AM - 5:00 PM Central Time. Record requests for emergency care only can be directed to [phone] at any time.[facility] Allergies Active Allergy Reactions Criticality Noted [...] 09/19/2023 Hypertension Essential Primary 09/19/2023 Corticosteroid Treatment Fci Systemic 05/2023 Paraplegia 09/19/2023 Osteoporosis 06/28/2021 Acute [...] drink = 0.6 oz pur e alcohol) [facility] Utilities Answer Date Recorded In [...] Comments Blood Pressure 110/68 11/28/2023 8:43 AM INTERNET MARKETING SPECIALIST Pulse 76 11/28/2023 8:43 AM INTERNET MARKETING SPECIALIST Temperature 36.7 ??C (98 ??F) 11/28/2023 8:43 AM INTERNET MARKETING SPECIALIST Respiratory Rate 18 11/28/2023 8:43 AM INTERNET MARKETING SPECIALIST Oxygen Saturation 95% 11/28/2023 8:43 AM INTERNET MARKETING SPECIALIST RA Inhaled Oxygen Concentration - - Weight 58.8 kg (129 lb 9.6 oz) 11/28/2023 8:43 A M INTERNET MARKETING SPECIALIST Height 152 cm (4' 11.84) 10/19/2023 5:00 AM INTERNET MARKETING SPECIALIST Body Mass Index 25.44 10/19/2023 5:00 AM INTERNET MARKETING SPECIALIST Plan of Treatment Health Maintenance [...] METABOLIC PANEL, S/P Routine 11/04/2023 6:52 AM INTERNET MARKETING SPECIALIST Hypokalemia from Last 3 Months or Most Recently Relevant to Health Maintenance Results * (ABNORMAL) Basic Metabolic Panel (11/04/2023 6:52 AM INTERNET MARKETING SPECIALIST) Potassium, P 4.1 3.6 - 5.2 mmol/L 11/04/2023 8:14 AM INTERNET MARKETING SPECIALIST NPRG Sodium, P 142 135 - 145 mmol/L 11/04/2023 8:14 AM INTERNET MARKETING SPECIALIST NPRG Chloride, P 102 98 - 107 mmol/L 11/04/2023 8:14 AM INTERNET MARKETING SPECIALIST NPRG Bicarbonate, P 30(H) 22 - 29 mmol/L 11/04/2023 8:14 AM INTERNET MARKETING SPECIALIST NPRG Anion Gap, P 10 7 - 15 11/04/2023 8:14 AM INTERNET MARKETING SPECIALIST NPRG BUN (Blood Urea Nitrogen), P 21 6 - 21 mg/dL 11/04/2023 8:14 AM INTERNET MARKETING SPECIALIST NPRG Creatinine 0.28(L) 0.59 - 1.04 mg/dL 11/04/2023 8:14 AM INTERNET MARKETING SPECIALIST NPRG Estimated GFR (eGFR) >90 >=60 mL/min/BSA 11/04/2023 8:14 AM INTERNET MARKETING SPECIALIST NPRG Comment: Estimated GFR calculated using the 2020 CKD_EPI creatinine equation. Calcium, Total, P 9.1 8.8 - 10.2 mg/dL 11/04/2023 8:14 AM INTERNET MARKETING SPECIALIST NPRG Glucose, P 79 70 - 140 mg/dL 11/04/2023 8:14 AM INTERNET MARKETING SPECIALIST NPRG Blood (Blood, Venous) 11/04/2023 6:52 AM INTERNET MARKETING SPECIALIST 11/04/2023 7:43 AM INTERNET MARKETING SPECIALIST Osiris Otero APRN, C.N.P., R.N. LAB B LOOD ADD-ON [facility] [address] [place] [address], [facility] NPRG [facility] [address] [place] [address] from Last 3 Months or Most Recently Relevant to Health Maintenance Advance Directives For more information, please contact: [phone] Documents on File Type Date Recorded Patient Criminology Teacher Expl anation Advance Directives 09/19/2023 4:06 PM POLS T/MOLST * DNR/DNI (Latest Code Status on File) Date Activated Date Inactivated Comments 10/19/2023 6:50 PM 10/27/2023 4:16 PM * Full Code Date Activated Date Inactivated Comments 10/19/2023 2:13 AM 10/19/2023 6:50 PM Question Answer Comments Full Code: Discussed Care Teams Curtain Drier Relationship Specialty Start Date End Date Elsewhere, Pcp PCP - General Internal Medicine 12/09/23
--- OUTSIDE RECORDS SUMMARY | 2024-03-26 16:38 | XMS_ITS ---
Author Organization [facility] Address [address] [place] [address] Care Team Providers Care Hydrometeorologist Name Role Phone Flo Mckeon MD Primary Care Provider [phone] Transitional Care Management Status:Enrolled (Active) Start date:03/15/2024 Enrollment date:03/16/2024 Continued Care and Services Coordination
--- OUTSIDE RECORDS SUMMARY | 2024-03-26 16:38 | XMS_ITS | Encounter Summary ---
Author Organization [facility] Address [address] [place] [address] Care Team Providers Care Elevator Mechanic Name Role Phone [facility]- Primary Care Provider Encounter Details Date Type [...] documented as of this encounter Care Teams Elevator Mechanic Relationship Specialty Start Date End Date [facility]- [address] [place] [address] PCP - General 03/06/24 03/08/24 documented as of this encounter
--- OUTSIDE RECORDS SUMMARY | 2024-03-26 16:39 | XMS_ITS | Referral Summary ---
Author Organization [facility] Address [address] [place] [address] Care Team Providers Care Industrial Relations Director Name Role Phone Elsewhere, Pcp Primary Care Provider Unavailabl e Source Comments Patient records contain information from all sites at [facility]. For routine questions regarding patient records, call [phone] during business hours, M-F 8:00 AM - 5:00 PM Central Time. Record requests for emergency care only can be directed to [phone] at any time.[facility] Allergies Active Allergy Reactions Criticality [...] 09/19/2023 Hypertension Essential Primary 09/19/2023 Corticosteroid Treatment Assisted Systemic 05/2023 Paraplegia 09/19/2023 Osteoporosis 06/28/2021 Acute [...] situation today? I have a [facility] place to live 10/19/2023 Sex and Gender Information Value Date Recorded Sex Assigned at Not on file Gender Identity Not on file Sexual Orientation Not on file Last Filed Vital Signs Vital Sign Reading Time Taken Comments Blood Pressure 110/68 11/28/2023 8:43 AM ADMINISTRATIVE DIETITIAN Pulse 76 11/28/2023 8:43 AM ADMINISTRATIVE DIETITIAN Temperature 36.7 ??C (98 ??F) 11/28/2023 8:43 AM ADMINISTRATIVE DIETITIAN Respiratory Rate 18 11/28/2023 8:43 AM ADMINISTRATIVE DIETITIAN Oxygen Saturation 95% 11/28/2023 8:43 AM ADMINISTRATIVE DIETITIAN RA Inhaled Oxygen Concentration - - Weight 58.8 kg (129 lb 9.6 oz) 11/28/2023 8:43 A M ADMINISTRATIVE DIETITIAN Height 152 cm (4' 11.84) 10/19/2023 5:00 AM ADMINISTRATIVE DIETITIAN Body Mass Index 25.44 10/19/2023 5:00 AM ADMINISTRATIVE DIETITIAN Plan of Treatment Not on file Procedures Procedure Name Priority Date/Time Associated Diagnosis Comments BASIC METABOLIC PANEL, S/P Routine 11/04/2023 6:52 AM ADMINISTRATIVE DIETITIAN Hypokalemia from Last 3 Months or Most Recently Relevant to Health Maintenance Results * (ABNORMAL) Basic Metabolic Panel (11/04/2023 6:52 AM ADMINISTRATIVE DIETITIAN) Potassium, P 4.1 3.6 - 5.2 mmol/L 11/04/2023 8:14 AM ADMINISTRATIVE DIETITIAN NPRG Sodium, P 142 135 - 145 mmol/L 11/04/2023 8:14 AM ADMINISTRATIVE DIETITIAN NPRG Chloride, P 102 98 - 107 mmol/L 11/04/2023 8:14 AM ADMINISTRATIVE DIETITIAN NPRG Bicarbonate, P 30(H) 22 - 29 mmol/L 11/04/2023 8:14 AM ADMINISTRATIVE DIETITIAN NPRG Anion Gap, P 10 7 - 15 11/04/2023 8:14 AM ADMINISTRATIVE DIETITIAN NPRG BUN (Blood Urea Nitrogen), P 21 6 - 21 mg/dL 11/04/2023 8:14 AM ADMINISTRATIVE DIETITIAN NPRG Creatinine 0.28(L) 0.59 - 1.04 mg/dL 11/04/2023 8:14 AM ADMINISTRATIVE DIETITIAN NPRG Estimated GFR (eGFR) >90 >=60 mL/min/BSA 11/04/2023 8:14 AM ADMINISTRATIVE DIETITIAN NPRG Comment: Estimated GFR calculated using the 2020 CKD_EPI creatinine equation. Calcium, Total, P 9.1 8.8 - 10.2 mg/dL 11/04/2023 8:14 AM ADMINISTRATIVE DIETITIAN NPRG Glucose, P 79 70 - 140 mg/dL 11/04/2023 8:14 AM ADMINISTRATIVE DIETITIAN NPRG Blood (Blood, Venous) 11/04/2023 6:52 AM ADMINISTRATIVE DIETITIAN 11/04/2023 7:43 AM ADMINISTRATIVE DIETITIAN Osiris Otero APRN, C.N.P., R.N. LAB B LOOD ADD-ON [facility] [address] [place] [address], [facility] NPRG [facility] [address] [place] [address] from Last 3 Months or Most Recently Relevant to Health Maintenance Advance Directives For more information, please contact: [phone] Documents on File Type Date Recorded Patient [id number] Android Developer Expl anation Advance Directives 09/19/2023 4:06 PM POLS T/MOLST * DNR/DNI (Latest Code Status on File) Date Activated Date Inactivated Comments 10/19/2023 6:50 PM 10/27/2023 4:16 PM * Full Code Date Activated Date Inactivated Comments 10/19/2023 2:13 AM 10/19/2023 6:50 PM Question Answer Comments Full Code: Discussed Care Teams Industrial Relations Director Relationship Specialty Start Date End Date Elsewhere, Pcp PCP - General Internal Medicine 12/09/23
--- OUTSIDE RECORDS SUMMARY | 2024-03-26 16:39 | XMS_ITS | Clinical Summary ---
Author Organization [facility] Address [address] [address] Care Team Providers Care Rn Acls Name Role Phone Flo Mckeon MD Primary Care Provider [phone] Source Comments You are receiving this document as you are listed as the primary care provider,follow-up provider, or the patient has been referred to you for consultation.This is in compliance with the Medicare and[facility] Hospitalcaid EHR Incentive Program,which states Providers who transition their patient to another setting of careor provider of care or refers their patient to another provider of care shouldprovide summary care record for each transition of care or referral. [employer] Medications Medication Sig Dispensed Refills Start Date End Date Status acetaminophen (TYLENOL ARTHRITIS) 650 MG controlled release tablet as needed Active furosemide (LASIX) 20 MG tablet Daily 06/11/2021 Active diphenhydrAMINE-APAP 25-500 MG tablet Bedtime as needed A ctive predniSONE (DELTASONE) 5 MG tablet 10 mg daily. 06/11/2021 Active aspirin EC 81 MG enteric coated tablet Daily Act job pseudoephedrine ([id number]) 120 MG 12 hour release tablet Daily [...] Negative (Non Reactive) 06/28/2021 7:52 PM CDT [facility] Comment:Antibodies to HCV no t detected. Does not exclude the possiblity of exposure to HCV. Blood Venipuncture / Unknown 06/28/2021 2:27 PM CDT 06/28/2021 2:28 PM CDT Lorenza Q Black DO LAB_1 [facility] [address] from Last 3 Months or Most Recently Relevant to Health Maintenance Care Teams Rn Acls Relationship Specialty Start Date End Date Flo Mckeon MD [address] [place] [address] PCP - General 06/21/21
--- OUTSIDE RECORDS SUMMARY | 2024-03-26 16:39 | XMS_ITS ---
Author Organization [facility] Address [address] [place] [address] Care Team Providers Care Record Producer Name Role Phone Unavailable Unavailable Unavailable Surgery Details Not on file Complications Check Surgery Details section. Procedure Estimated Blood Loss Check Surgery Details section. Procedure Findings Check Surgery Details section. Procedure Specimens Taken Check Surgery Details section.
--- OUTSIDE RECORDS SUMMARY | 2024-03-26 16:39 | XMS_ITS | Encounter Summary ---
Author Organization [facility] Address [address] [place] [address] Care Team Providers Care Bulk Picker Name Role Phone Elsewhere, Pcp Primary Care Provider Unavailabl e Encounter Details Date Type Department Care Team (Latest Contact Info) Description 10/18/2023 Intake [facility] Social History Tobacco Use Types Packs/Day Years Used Date Smoking Tobacco: Never Smokeless Tobacco: Never Alcohol Use Standard Drinks/Week Comments Defer 0 (1 standard drink = 0.6 oz pur e alcohol) [facility] Utilities Answer Date Recorded In the past 12 months has [facility] electric, gas, oil, or water [employer] threatened to shut off services in [...] Pending 10/18/2023 10/18/2023 10/18/2023 9 :11 PM LABORATORY TECHNOLOGY TEACHER COVID19 11/13/2023 11/13/2023 12/03/2023 5:55 AM LABORATORY TECHNOLOGY TEACHER documented as of this encounter Care Teams Bulk Picker Relationship Specialty Start Date End Date Elsewhere, Pcp PCP - General Internal Medicine 12/09/23 documented as of this encounter
--- OUTSIDE RECORDS SUMMARY | 2024-03-26 16:39 | XMS_ITS | Encounter Summary ---
Author Organization [facility] Address [address] [place] [address] Care Team Providers Care Customer Account Coordinator Name Role Phone Elsewhere, Pcp Primary Care Provider Unavailabl e Encounter Details Date Type Department Care Team ([facility] st Contact Info) Description 12/01/2023 Clinical Communication Department of Pulmonary Medicine in [address] [phone] [facility] [address] [place] [phone] Social History Tobacco Use Types Packs/Day Years Used Date Smoking Tobacco: Never Smokeless Tobacco: Never Alcohol Use Standard Drinks/Week Comments Defer 0 (1 standard drink = 0.6 oz pur e alcohol) [facility] Utilities Answer Date Recorded In the past 12 months has [facility] [employer], gas, oil, or water [employer] threatened to shut off services in your [...] your living situation today? I have a [facility] place to live 10/19/2023 Sex and [...] Time COVID19 11/13/2023 11/13/2023 12/03/2023 5:55 AM AIR BRAKE ADJUSTER documented as of this encounter Care Teams Customer Account Coordinator Relationship Specialty Start Date End Date Elsewhere, Pcp PCP - General Internal Medicine 12/09/23 documented as of this encounter
--- OUTSIDE RECORDS SUMMARY | 2024-03-26 16:39 | XMS_ITS | Clinical Summary ---
Author Organization [employer] [facility] Address [place], [place] [address] Care Team Providers Care Pesticide Use Medical Coordinator Name Role Phone Kallie Tamayo DRILLING FLUIDS SPECIALIST Unavailable [phone] [facility] [place] Unavailable [phone] Flo Mckeon MD Primary Care Provider [phone] Allergies Active Allergy Reactions Criticality Noted Date Comments Vancomycin Anaphylaxis High 03/25/2024 Medications Medication Sig Dispensed Refills Start Date End Date Status doxycycline (VIBRAMYCIN) 100 mg capsule Take 1 capsule by mouth 2 times daily. 28 capsule 0 01/18/2014 4 Discontinued(Ph armacist change per medication history (E-cancel not sent)) ibuprofen (ADVIL; MOTRIN) 200 mg tablet Take 2 tablets by mouth once daily. 0 01/18/2014 4 Discontinued(Ph armacist change per medication history (E-cancel not sent)) predniSONE (DELTASONE) 10 mg tablet Take 1 tablet by mouth once daily with a meal. 0 01/18/2014 4 Discontinued(Ph armacist change per medication history (E-cancel not sent)) mineral oil-hydrophil petrolat (AQUAPHOR) oint Apply topically to affected area(s) once daily. 1 Tube 0 01/18/2014 4 Discontinued(Ph armacist change per medication history (E-cancel not sent)) pseudoephedrine (SUDAFED) 60 mg tablet 60 mg qd 0 01/18/2014 4 Discontinued(Ph armacist change per medication history (E-cancel not sent)) sennosides (SENNA) 8.6 mg tablet Take 1 tablet by mouth once daily. 0 01/18/2014 4 Discontinued(Ph armacist change per medication history (E-cancel not sent)) traZODone (DESYREL) 50 mg tablet Take 1 tablet by mouth at bedtime. 0 01/18/2014 4 Discontinued(Ph armacist change per medication history (E-cancel not sent)) polyethylene glycoL (MIRALAX) 17 gram/dose powder Take 17 g by mouth once daily if needed for Constipation. 0 01/18/2014 4 Discontinued(Ph armacist change per medication history (E-cancel not sent)) oxyCODONE (ROXICODONE) 5 mg capsule 5 mg q3hrs prn 0 01/18/2014 4 Discontinued(Ph armacist change per medication history (E-cancel not sent)) famotidine (PEPCID) 20 mg tablet Take 1 tablet by mouth once daily. 0 01/28/2014 4 Discontinued(Ph armacist change per medication history (E-cancel not sent)) gabapentin (NEURONTIN) 300 mg capsule Take 300 mg by mouth three times daily. Suspended metoprolol succinate (TOPROL XL) 100 mg Sustained-Releas e tablet Take 100 mg by mouth once daily. Suspended loperamide (Imodium A-D) 2 mg capsule Take 2 mg by mouth each time if needed for Diarrhea. Take 2 capsules (4mg) orally with 1st loose stool, then 1 capsule (2mg) with other loose stools. Max 16 mg in 24 hrs. Suspended multivitamin (DAILY WILL ORAL) Take 1 Tablet by mouth once daily. 4 Discontinued(Ph armacist change per medication history (E-cancel not sent)) oxyCODONE (ROXICODONE) 5 mg immediate release tablet Take 5 mg by mouth every 4 hours if needed for Pain. Suspended omeprazole (PRILOSEC) 20 mg Delayed-Release capsule Take 20 mg by mouth once daily. 4 Discontinued(Ph armacist change per medication history (E-cancel not sent)) predniSONE (DELTASONE) 5 mg tablet Take 10 mg by mouth once daily. Suspended triamcinolone (ARISTOCORT; KENALOG) 0.1 % cream Apply topically to affected area(s) 2 times daily if needed. Suspended furosemide (Lasix) 20 mg tablet Take 20 mg by mouth once daily. Suspended potassium chloride (K-TAB) 10 mEq extended-release tablet Take 20 mEq by mouth once daily. 4 Discontinued(Ph armacist change per medication history (E-cancel not sent)) ascorbic acid (ASCOCID ORAL) Take 1 Tablet by mouth once daily. Suspended zinc sulfate 50 mg zinc (220 mg) capsule Take 220 mg by mouth once daily. Suspended naproxen (ALEVE) 220 mg tablet Take 220 mg by mouth once daily if needed. Suspended lactobacillus rhamnosus, GG, (Culturelle) 10 billion cell capsule Take 1 Capsule by mouth once daily. 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 Paraplegia 01/18/2014 Rheumatoid arthritis 01/18/2014 Seasonal allergies 01/18/2014 Low back pain radiating to right leg 01/18/2014 Neurogenic bladder 01/18/2014 A-fib 01/18/2014 Constipation 01/18/2014 Scoliosis 01/18/2014 Encounters Date Type Department Care Team Description 03/25/2024 Lab Requisition [facility] [phone] Chad Carrera MD 03/24/2024 3:40 PM CDT - Present Hospital Encounter [facility] [address] [place] [address] [facility] Tesfaye Ryan MD Kethireddy, Rajesh Babu, MBBS 03/23/2024 Hospital Encounter [facility] [address] [place] [address] [facility] 02/09/2024 Lab Requisition [facility] [phone] Unknown, Doctor from Last 3 Months Social History Tobacco [...] Sign Reading Time Taken Comments Blood Pressure 148/66 03/26/2024 9:56 AM CDT Pulse 85 03/26/2024 9:56 AM CDT Temperature 36.6 ??C (97.9 ??F) 03/26/2024 9:56 AM CD T Respiratory Rate 18 03/26/2024 9:56 AM CDT Oxygen Saturation 96% 03/26/2024 9:56 AM CDT Inhaled Oxygen Concentration - - Weight 59.1 kg (130 lb 5 oz) 01/21/2014 8:48 AM CDT Height - - Body Mass Index - - Plan of Treatment Health Maintenance Due Date Last Done Comments Pneumococcal series for age 65+ (1 of 2 - PCV) 953 Tdap 1957 Depression screening for age 12+ 1958 BMI (ht and wt on same day) for age 18+ 1964 Hepatitis C screening for age 18-79 1964 Tetanus booster 1966 Zoster (shingles) series for age 50+ (1 of 2) 12/30/18 97 DEXA/DXA scan for age 65+ 12/31/2011 COVID-19 vaccine series ( - 2022- season) 3 Influenza for age 65+ 06/13/2024 Procedures The patient is currently admitted. The information in this section might not be complete until the patient is discharged. Procedure Name Priority Date/Time Associated Diagnosis Comments BLOOD CULTURE Today 03/26/2024 6:52 AM CDT US VENOUS UPPER EXTREMITY LEFT Routine 03/25/2024 6:58 PM CDT BLOOD CULTURE Today 03/25/2024 2:21 PM CDT CK TOTAL JUNIOR 03/25/2024 7:28 AM CDT GAMMA GT Early AM 03/25/2024 7:28 AM CDT HEPATIC FUNCTION PANEL Early AM 03/25/2024 7:28 AM CDT C-REACTIVE PROTEIN Early AM 03/25/2024 7: 28 AM CDT BASIC METABOLIC PANEL Early AM 03/25/2024 7:28 AM CDT CBC W PLT NO DIFF Early AM 03/25/2024 7:2 8 AM CDT US RENAL AND BLADDER COMPLETE Routine 03/24/2024 7:08 PM CDT REFERRAL ID/SUSC,NONURINE Routine 03/21/2024 7:45 PM CDT REFERRAL ID/SUSC,NONURINE Routine 02/06/2024 8:50 AM CDT from Last 3 Months Results * US VENOUS UPPER EXTREMITY LEFT (03/25/2024 6:58 PM CDT) Anatomical Region Laterality Modality ARMS, ARM L Ultrasound 03/26/2024 12:4 7 AM CDT Impressions 03/26/2024 12:47 AM CDT No sign of deep venous thrombosis in the left upper extremity. Dictated by Willy Adame MD @ 03/26/2024 12:47:50 AM (Electronically Signed) Narrative 03/26/2024 12:47 AM CDT For Patients: ??As a result of the Cures Act, medical imaging exams and procedure reports are released immediately into your electronic medical record. ??You may view this report before your referring provider. ??If you have questions, please contact your health care provider. INDICATION: Swelling and pain. TECHNIQUE: Ultrasound venous duplex upper left extremity. Compression venous exam was performed using hernandes-scale, color Doppler, and spectral Doppler imaging. COMPARISON: None. FINDINGS: The left internal jugular, subclavian, and axillary veins are patent with normal waveforms. The brachial, basilic, and cephalic veins are fully compressible. The contralateral right internal jugular and subclavian veins are provided for comparison, and are patent with normal waveforms. Procedure Note Willy Adame MD - 03/26/2024 For Patients: As a result of the Cures Act, medical imagingexams and procedure reports are released immediately into your electronicmedical record. You may view this report before your referring provider.If you have questions, please contact your health care provider. INDICATION: Swelling and pain. TECHNIQUE: Ultrasound venous duplex upper left extremity. Compression venous exam wasperformed using hernandes-scale, color Doppler, and spectral Doppler imaging. COMPARISON: None. FINDINGS: The left internal jugular, subclavian, and axillary veins are patent withnormal waveforms. The brachial, basilic, and cephalic veins are fullycompressible. The contralateral right internal jugular and subclavianveins are provided for comparison, and are patent with normal waveforms. IMPRESSION: No sign of deep venous thrombosis in the left upper extremity. Dictated by Willy Adame MD @ 03/26/2024 12:47:50 AM (Electronically Signed) Johanny PARRISH US * (ABNORMAL) CBC no diff AM (03/25/2024 7:28 AM CDT) WHITE BLOOD COUNT 14.8(H) 4.5 - 11.0 thou/cu mm 03/25/2024 7:49 AM CDT [facility] RED BLOOD COUNT 3.93(L) 4.00 - 5.20 mil/cu mm 03/25/2024 7:49 AM CDT [facility] HEMOGLOBIN 10.3(L) 12.0 - 16.0 g/dL 03/25/2024 7:49 AM CDT [facility] HEMATOCRIT 34.2 33.0 - 51.0 % 03/25/2024 7:49 AM CDT [facility] MCV 87 80 - 100 fL 03/25/2024 7:49 AM CDT [facility] MCH 26.2 26.0 - 34.0 pg 03/25/2024 7:49 AM CDT [facility] MCHC 30.1(L) 32.0 - 36.0 g/dL 03/25/2024 7:49 AM CDT [facility] RDW 18.3(H) 11.5 - 15.5 % 03/25/2024 7:49 AM CDT [facility] PLATELET COUNT 296 140 - 440 thou/cu mm 03/25/2024 7:49 AM CDT [facility] MPV 9.6 6.5 - 11.0 fL 03/25/2024 7:49 AM CDT [facility] NRBC 0.6 % 03/25/2024 7:49 AM CDT [facility] ABS NRBC 0.1 thou /cu mm 03/25/2024 7:49 AM CDT [facility] Blood BLOOD SPECIMEN / Unknown Butterfly / Unknown 03/25/2024 7:28 AM CDT 03/25/2024 7:41 AM CDT Tesfaye Ryan MD HEMATOLOGY [facility] [address] [place] [address], * (ABNORMAL) C-REACTIVE PROTEIN (03/25/2024 7:28 AM CDT) C-REACTIVE PROTEIN 5.7(H) <0.5 mg/dL 03/25/2024 8:12 AM CDT [facility] Blood BLOOD SPECIMEN / Unknown Butterfly / Unknown 03/25/2024 7:28 AM CDT 03/25/2024 7:41 AM CDT Tesfaye Ryan MD CHEMISTRY Performing Organization Address [facility] Co de Phone Number [facility] [address] [place] [address], * (ABNORMAL) GAMMA GT (03/25/2024 7:28 AM CDT) GAMMA GT 216(H) 5 - 36 IU/L 03/25/2024 8:32 AM CDT [facility] Blood BLOOD SPECIMEN / Unknown Butterfly / Unknown 03/25/2024 7:28 AM CDT 03/25/2024 7:41 AM CDT Tesfaye Ryan MD CHEMISTRY Performing Organization Address [facility] Phone Number [facility] [address] [place] [address], * (ABNORMAL) CK TOTAL (03/25/2024 7:28 AM CDT) CK,TOTAL 16(L) 26 - 192 IU/L 03/25/2024 9:01 AM CDT [facility] Blood BLOOD SPECIMEN / Unknown Butterfly / Unknown 03/25/2024 7:28 AM CDT 03/25/2024 7:41 AM CDT Jonatan Amezquita MD CHEMISTRY Performing Organization Address [facility] de Phone Number [facility] [address] [place] [address], [place] * (ABNORMAL) Hepatic function panel AM (03/25/2024 7:28 AM CDT) ALBUMIN 2.8(L) 4.0 - 4.9 g/dL 03/25/2024 8:12 AM CDT [facility] PROTEIN,TOTAL 4.7(L) 6.0 - 8.0 g/dL 03/25/2024 8:12 AM CDT [facility] BILIRUBIN,TOTAL 0.2 0.0 - 1.2 mg/dL 03/25/2024 8:12 AM CDT [facility] BILIRUBIN,DIRECT <0.2 0.0 - 0.3 mg/dL 03/25/2024 8:12 AM CDT [facility] BILIRUBIN,INDIRE CT 03/25/2024 8:12 AM CDT [facility] Comment:Unable to calculate, Direct Bili <0.2 ALK PHOSPHATASE 315(H) 35 - 104 IU/L 03/25/2024 8:12 AM CDT [facility] ALT (SGPT) 24 10 - 35 IU/L 03/25/2024 8:12 AM CDT [facility] AST (SGOT) 23 10 - 35 IU/L 03/25/2024 8:12 AM CDT [facility] Blood BLOOD SPECIMEN / Unknown Butterfly / Unknown 03/25/2024 7:28 AM CDT 03/25/2024 7:41 AM CDT Tesfaye Ryan MD CHEMISTRY [facility] [address] [place] [address], * (ABNORMAL) Basic metabolic panel AM (03/25/2024 7:28 AM CDT) SODIUM 143 136 - 145 mmol/L 03/25/2024 8:12 AM CDT [facility] POTASSIUM 4.6 3.5 - 5.1 mmol/L 03/25/2024 8:12 AM CDT [facility] CHLORIDE 110(H) 98 - 107 mmol/L 03/25/2024 8:12 AM CDT [facility] CO2,TOTAL 24 22 - 29 mmol/L 03/25/2024 8:12 AM CDT [facility] ANION GAP 9 5 - 18 03/25/2024 8:12 AM CDT [facility] GLUCOSE 92 70 - 99 mg/dL 03/25/2024 8:12 AM CDT [facility] CALCIUM 8.5(L) 8.8 - 10.2 mg/dL 03/25/2024 8:12 AM CDT [facility] BUN 19 8 - 23 mg/dL 03/25/2024 8:12 AM CDT [facility] CREATININE 0.27(L) 0.50 - 0.90 mg/dL 03/25/2024 8:12 AM CDT [facility] BUN/CREAT RATIO 70(H) 10 - 20 8:12 AM CDT [facility] eGFR >90 >90 mL/min/1.7 3m2 03/25/2024 8:12 AM CDT [facility] Comment:As of 2021, eG FR is calculated by the CKD-EPI creatinine equation without race adjustment. ??eGFR can be influenced by muscle mass, exercise, and diet. ??The reported eGFR is an estimation only and is only applicable if the renal function is stable. Blood BLOOD SPECIMEN / Unknown Butterfly / Unknown 03/25/2024 7:28 AM CDT 03/25/2024 7:41 AM CDT Tesfaye Ryan MD CHEMISTRY [facility] [address] [place] [id number], * US Renal today (03/24/2024 7:08 PM CDT) Anatomical Region Laterality Modality Abdomen, AORTA, KIDNEYS Ultrasou nd 03/25/2024 12:3 3 AM CDT Impressions 03/25/2024 12:33 AM CDT Unremarkable kidneys. No hydronephrosis bilaterally. Dictated by Santy Espinoza MD @ 03/25/2024 12:33:50 AM (Electronically Signed) Narrative 03/25/2024 12:33 AM CDT For Patients: ??As a result of the 21st Century Cures Act, medical imaging exams and procedure reports are released immediately into your electronic medical record. ??You may view this report before your referring provider. ??If you have questions, please contact your health care provider. INDICATION: Right hydronephrosis. TECHNIQUE: Ultrasound renal and bladder complete. ??Hernandes-scale and color Doppler sonographic images were acquired of the kidneys and urinary bladder. COMPARISON: None. FINDINGS: Right kidney: 10.0 x 5.4 x 5.8 cm. Left kidney: 10.1 x 4.5 x 5.8 cm. ?? Normal echotexture and cortex. ??No suspicious masses, stones, or hydronephrosis. Bladder: Decompressed from indwelling urinary catheter, which precludes adequate visualization. Procedure Note Santy Espinoza MD - 03/25/2024 For Patients: As a result of the Cures Act, medical imagingexams and procedure reports are released immediately into your electronicmedical record. You may view this report before your referring provider.If you have questions, please contact your health care provider. INDICATION: Right hydronephrosis. TECHNIQUE: Ultrasound renal and bladder complete. Hernandes-scale and color Dopplersonographic images were acquired of the kidneys and urinary bladder. COMPARISON: None. FINDINGS: Right kidney: 10.0 x 5.4 x 5.8 cm. Left kidney: 10.1 x 4.5 x 5.8 cm. Normal echotexture and cortex. No suspicious masses, stones, orhydronephrosis. Bladder: Decompressed from indwelling urinary catheter, which precludesadequate visualization. IMPRESSION: Unremarkable kidneys. No hydronephrosis bilaterally. Dictated by Santy Espinoza MD @ 03/25/2024 12:33:50 AM (Electronically Signed) Tesfaye Ryan MD US * (ABNORMAL) REFERRAL ID/SUSC,NONURINE (02/06/2024 8:50 AM CDT) CULTURE RESULT(A) 02/11/2024 9:55 AM CDT [facility] CULTURE Streptococcus anginosus 02/11/2024 9:55 AM CDT [facility] N[facility] Other Client Collect / Unknown 02/06/2024 8:50 AM CDT 02/09/2024 3:39 PM CDT Narrative Organism Antibiotic Method Susceptibility Streptococcus anginosus PENICILLIN <=0.06: S Streptococcus anginosus CEFTRIAXONE <=0.12: S Streptococcus anginosus ERYTHROMYCIN >=8: R Streptococcus anginosus CLINDAMYCIN >=1: R Streptococcus anginosus VANCOMYCIN 0.5: S Streptococcus anginosus AMPICILLIN <=0.25: S Streptococcus anginosus CLARITHROMYCIN R Doctor Unknown [facility] [employer] [facility] [address] [place] [address], from Last 3 Months Additional Health Concerns Infection Onset Date Last Indicated Resolved Time MRSA Clearance Comment:Hx MRSA 12/02/13 @ [facility] 03/25/2024 03/25/2024 Advance Directives * DNR (Latest Code Status on File) Date Activated Date Inactivated Comments 03/24/2024 5:28 PM Question Answer Comments Code Status Discussion: Reviewed Preferences Care Teams Pesticide Use Medical Coordinator Relationship Specialty Start Date End Date Flo Mckeon MD [address] [place] [id number] PCP - General Family Practice 10/04/21 Kallie Tamayo NP [address] [address] Family Practice 01/17/14 [facility], [facility] [address] [id number] 01/29/14
== END 2024-03-24 14:21 | disposition home or self-care (01) ==
LOC: AMB 03-26 16:35
PROVIDERS: PCP Family Medicine; Visit Provider Family Medicine
DX: L89.314 Pressure ulcer of right buttock, stage 4 (principal)
CPT/HCPCS: A0425; A0427

== ENCOUNTER 2024-04-09 08:11 | Outpatient (CLI) | payer MEDICARE, SELFPAY ==
--- OUTSIDE RECORDS SUMMARY | 2024-04-09 08:13 | XMS_ITS | Clinical Summary ---
Author Organization [facility] Address [address] [place] [address] Care Team Providers Care Supervisor Benzene Refining Name Role Phone Flo Mckeon MD Primary Care Provider [phone] Allergies Active Allergy Reactions Criticality Noted Date [...] ER (TOPROL XL) 100 MG 24 hr tabletIndications :Septic shock (H) Take 1 tablet (100 mg) by mouth daily 30 tablet 03/15/2024 Active metoprolol succinate ER (TOPROL XL) 50 MG 24 hr tablet Take 50 mg by mouth daily 03/14/2024 Discontinued( Stop at Discharge) levofloxacin (LEVAQUIN) 500 MG tabletIndications :Septic shock (H) Take 1 tablet (500 mg) by mouth daily for 10 days 10 tablet 03/14/2024 03/24/2024 Active Problems Problem Noted Date Diagnosed Date [...] - 03/14/2024 5:17 PM CDT Hospital Encounter [place] [address] Medical Surgical [address] [place] [address] Chago Velazquez MD Kriz, John Anthony, Pressure injury of right ischium, 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); Fever in adult; Septic shock (H); Urinary tract infection without hematuria, site unspecified; Elevated lactic acid level; 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 [facility] Signature Sodium 140 135 - 145 mmol/L 03/14/2024 [...] MD LAB - BLOOD ORDER TYRON LABORATORY [facility] Acute Care Lab [address] [facility] Lab (1st floor, no room number) [place] [address], [facility] * (ABNORMAL) CBC with platelets (03/14/2024 [...] MD LAB - BLOOD ORDER TYRON LABORATORY [facility] Acute Care Lab [address] [facility] Lab (1st floor, no room number) [place] [address] * Potassium (03/13/2024 5:04 AM CDT) Only the most recent of6 resultswithin the time period is included. Potassium 3.9 3.4 - 5.3 mmol/L 03/13/2024 5:44 AM CDT RH LABORATORY Blood TOPOGRAPHY UNKNOWN / Unknown VAD(CVC, PICC) / Unknown 03/13/2024 5:04 AM CDT 03/13/2024 5:22 AM CDT Don Ramirez MD LAB - BLOOD ORDER TYRON Performing Organization Address City/[facility]/ZIP Co de Phone Number RH LABORATORY [facility] Acute Care Lab [address] Lab (1st floor, no room number) [place] [address] * EKG 12-lead, tracing only (03/12/2024 11:32 AM CDT) Only the most recent of2 resultswithin the time period is included. Systolic Blood Pressure mmHg RADIOLOGY RESULTS Diastolic Blood Pressure mmHg RADIOLOGY RESULTS Ventricular Rate 89 BPM RAD IOLOGY RESULTS Atrial Rate 89 BPM RADIOLOG Y RESULTS SC Interval 128 ms RADIOLOG Y RESULTS QRS Duration 118 ms RADIOLO GY RESULTS QT 376 ms RADIOLOGY RESULTS QTc 457 ms RADIOLOGY RESULTS P [place] 59 degrees RADIOLOGY RESULTS R AXIS 93 degrees RADIOLOGY RESULTS T [place] 53 degrees RADIOLOGY RESULTS Interpretation ECG Sinus rhythm Right bundle branch block Abnormal ECG When compared with ECG of 06-MAR-2024 04:53, Nonspecific T wave abnormality no longer evident in Inferior leads Confirmed by MD MCALLISTER MICHAEL ([id number]) on 03/12/2024 10:11:09 PM RADIOLOGY RESULTS 03/12/2024 11:3 2 AM CDT 03/12/2024 10:11 PM CDT Don Ramirez MD ECG ORDERABLES Performing Organization Address [facility]/ZIP Co de Phone Number RADIOLOGY RESULTS * (ABNORMAL) Glucose by meter (03/09/2024 2:17 AM CDT) Only the most recent of10 resultswithin the time period is included. GLUCOSE BY METER POCT 171(H) 70 - 99 mg/dL 03/09/2024 2:29 AM CDT LABORATORY POC Blood, Capillary BLOOD SPECIMEN / Unknown 03/09/2024 2:17 AM CDT 03/09/2024 2:29 AM CDT Chago JACKSON - BEAKER POCT Performing Organization Address City/[facility]/ZIP Co de Phone Number RH LABORATORY POC [facility] Lab [address] Lab (1st floor, no room number) [place] [address], [place] * Lactic Acid Whole Blood w/ 1x repeat in 2 hrs when >2 (03/07/2024 6:54 PM CDT) Only the most recent of2 resultswithin the time period is included. Lactic Acid, Initial 1.9 0.7 - 2.0 mmol/L 03/07/2024 7:12 PM CDT RH LABORATORY Blood BLOOD SPECIMEN / Unknown VAD(CVC, PICC) / Unknown 03/07/2024 6:54 PM CDT 03/07/2024 7:10 PM CDT pAple Burt DO LAB - BLOOD O RDERABLES Performing Organization Address City/[facility]/ZIP Co de Phone Number [facility] Lab [address] Lab (1st floor, no room number) [place] [address] * (ABNORMAL) Hemoglobin A1c (03/07/2024 4:31 AM CDT) [facility] Hemoglobin A1C 6.6(H) <5.7 % 03/09/2024 11:29 AM CDT RH LABORATORY Comment: Normal <5.7% Prediabetes 5.7-6.4% ?? Diabetes 6.5% or higher Note: Adopted from ADA consensus guidelines. Blood VENOUS LINE / Unknown VAD(CVC, PICC) / Unknown 03/07/2024 4:31 AM CDT 03/07/2024 4:36 AM CDT Chago Vicente DO LAB - BLOOD ORDERAB LES [facility] Lab [address] Lab (1st floor, no room number) [place] [address] * (ABNORMAL) Comprehensive metabolic panel (03/07/2024 4:31 AM CDT) Only the most recent of3 resultswithin the time period is included. Pathologist [facility] Sodium 145 135 - 145 mmol/L 03/07/2024 [...] LAB - BLOOD O RDERABLES RH LABORATORY [facility] Lab [address] [facility] Lab (1st floor, no room number) [place] [address], [facility] * Blood Culture Wrist, Left (03/06/2024 4:46 PM CDT) Only the most recent of4 resultswithin the time period is included. Culture No Growth 03/11/2024 6:46 PM CDT [facility] Blood STRUCTURE OF LEFT WRIST REGION / Unknown Venipuncture / Unknown 03/06/2024 4:46 PM CDT 03/06/2024 5:07 PM CDT Apple Burt DO LAB - MICRO G ENERAL ORDERABLES [facility] LABORATORY [facility] Inf. Diseases Diag. Lab [address] [facility], [address] [place] [address], [facility] * XR Chest Port 1 View [...] Velazquez MD LAB - BLOOD ORDERABL ES [facility] Acute Care Lab [address] [facility] Lab (1st floor, no room number) [place] [address], [facility] * (ABNORMAL) UA with Microscopic (03/06/2024 2:54 AM CDT) Color Urine Yellow Colorless, Straw, Light Yellow, Yellow 03/06/2024 4:11 AM CDT LABORATORY Appearance Urine Cloudy(A) Clear 03/06/20 4:11 AM CDT LABORATORY Glucose Urine Negative Negative mg/dL 03/06/2024 4:11 AM CDT LABORATORY Bilirubin Urine Negative Negative 4:11 AM CDT LABORATORY Ketones Urine Negative Negative mg/dL 03/06/2024 4:11 AM CDT LABORATORY Specific [place] Urine 1.018 1.003 - 1.035 03/06/2024 4:11 [...] MD LAB - URINE ORDERABL ES LABORATORY [facility] Lab [address] [facility] Lab (1st floor, no room number) [place] [address], [facility] * (ABNORMAL) Urine Culture (03/06/2024 [...] coli Cefazolin DAWSON <=4 ug/mL: Susceptible Comment:Cefazolin [place] C breakpoints are for the treatment of [...] coli Cefazolin DAWSON 8 ug/mL: Susceptible Comment:Cefazolin [place] C breakpoints are for the treatment of [...] - MICRO GENERAL ORDERABLES [facility] LABORATORY [facility] Inf. Diseases Diag. Lab [address] [facility], [address] [place] [address] * (ABNORMAL) Verigene GN Panel (03/06/2024 1:55 AM CDT) Pathologist [facility] Acinetobacter species Not Detected Not Detected 03/06/2024 [...] 03/06/2024 5:46 PM CDT Specimen tested with Scayligene multiplex, gram-negative blood culture nucleic acid test for the following targets: Acinetobacter species, Citrobacter species, Enterobacter species, Proteus species, Escherichia coli, Klebsiella pneumoniae, Klebsiella oxytoca, Pseudomonas aeruginosa, and the following resistance markers: CTX-M, KPC, NDM, VIM, IMP and OXA. Chago Velazquez MD LAB - MICRO GENERAL ORDERABLES [facility] LABORATORY [facility] Inf. Diseases Diag. Lab [address] [facility], [address] [place] [address] * Symptomatic Influenza A/B, RSV, [...] the Xpert Xpress CoV2/Flu/RSV Assay on the [employer] GeneXpert Instrument. This test should be ordered [...] was validated by the [facility]. These laboratories are certified under the Clinical Laboratory Improvement Amendments of 1988 (CLIA-88) as qualified to perform high complexity laboratory testing. Chago Velazquez MD LAB - MICRO GENERAL ORDERABLES Performing Organization Address City/[facility]/ZIP Co de Phone Number [facility] [address] [facility] ([facility], no room number) [place] [address] * Extra Red Top Tube (03/06/2024 12:52 AM CDT) Pathologist [facility] Hold Specimen [facility] 03/06/2024 2:01 AM CDT LABORATORY Blood BLOOD SPECIMEN / Unknown Venipuncture / Unknown 03/06/2024 12:52 AM CDT 03/06/2024 12:59 AM CDT Chago Velazquez MD LAB - BLOOD ORDERABL ES Performing Organization Address City/[facility]/ZIP Co de Phone Number [facility] Lab [address] [employer] Lab (1st floor, no room number) [place] [address], [place] * Extra Blue Top Tube (03/06/2024 12:52 AM CDT) Hold Specimen [facility] 03/06/2024 2:01 AM CDT RH LABORATORY Blood BLOOD SPECIMEN / Unknown Venipuncture / Unknown 03/06/2024 12:52 AM CDT 03/06/2024 12:59 AM CDT Chago Velazquez MD LAB - BLOOD ORDERABL ES RH LABORATORY [facility] Lab [address] [facility] Lab (1st floor, no room number) [place] [address], [facility] * (ABNORMAL) CBC with platelets [...] MD LAB - BLOOD ORDERABL ES LABORATORY [facility] Lab [address] [facility] Lab (1st floor, no room number) [place] [address], [facility] * (ABNORMAL) Procalcitonin (03/06/2024 12:52 AM CDT) Procalcitonin 2.44(H) <0.50 ng/mL 03/06/2024 1:41 AM CDT RH LABORATORY Comment: Interpretation and Recommendations <0.5 ng/mL: Systemic bacterial infection unlikely. Local bacterial infection is possible. 0.5-1.99 ng/mL: Systemic bacterial infection possible, but various other conditions are known to induce PCT as well. >=2.00 ng/mL: Systemic bacterial infection likely, unless other causes are known. Decision to start antibiotics should not be based on procalcitonin level alone. See Procalcitonin Guidance document for more details. [email or web address]-[email or web address]-ant ibiot [email or web address] Factors that may affect PCT levels (not [...] Velazquez MD LAB - BLOOD ORDERABL ES [facility] Acute Care Lab [address] [facility] Lab (1st floor, no room number) [place] [address], [facility] * Lab Result - HIM Scan (02/06/2024 12:00 AM CDT) 02/06/2024 Provider Outside NON-BEAKER LAB TE STING * EKG Cardiac - HIM Scan (01/16/2024 12:00 AM CDT) 01/16/2024 Provider Outside ECG ORDERABLES from Last 3 Months Additional Health Concerns Infection Onset Date Last Indicated MRSA 12/02/2013 03/09/2024 Advance Directives For more information, please contact: [phone] * No CPR- Pre-arrest intubation OK (Latest [...] 2:28 PM 12/15/2013 6:18 PM Care Teams Supervisor Benzene Refining Relationship Specialty Start Date End Date Flo Mckeon MD [facility] - [address] [address] PCP - General Family Medicine 03/09/24
--- OUTSIDE RECORDS SUMMARY | 2024-04-09 08:14 | XMS_ITS | Referral Summary ---
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 [facility] Sodium 140 135 - 145 mmol/L 03/14/2024 [...] LAB - BLOOD ORDER TYRON RH LABORATORY [facility] Acute Care Lab [address] Lab (1st floor, no room number) [place] [address] * (ABNORMAL) CBC with platelets (03/14/2024 [...] Barnes MD LAB - BLOOD ORDER TYRON [facility] Acute Care Lab [address] Lab (1st floor, no room number) [address] * Potassium (03/13/2024 5:04 AM CDT) Only the most recent of6 resultswithin the time period is included. Potassium 3.9 3.4 - 5.3 mmol/L 03/13/2024 5:44 AM CDT LABORATORY Blood TOPOGRAPHY UNKNOWN / Unknown VAD(CVC, PICC) / Unknown 03/13/2024 5:04 AM CDT 03/13/2024 5:22 AM CDT Don Ramirez MD LAB - BLOOD ORDER TYRON Performing Organization Address [facility] Co de Phone Number [facility] Lab [address] Lab (1st floor, no room number) [address] * EKG 12-lead, tracing only (03/12/2024 11:32 AM CDT) Only the most recent of2 resultswithin the time period is included. Systolic Blood Pressure mmHg RADIOLOGY RESULTS Diastolic Blood Pressure mmHg RADIOLOGY RESULTS Ventricular Rate 89 BPM RAD IOLOGY RESULTS Atrial Rate 89 BPM RADIOLOG Y RESULTS [place] Interval 128 ms RADIOLOG Y RESULTS QRS Duration 118 ms RADIOLO GY RESULTS QT 376 ms RADIOLOGY RESULTS QTc 457 ms RADIOLOGY RESULTS P [place] 59 degrees RADIOLOGY RESULTS R AXIS 93 degrees RADIOLOGY RESULTS T [place] 53 degrees RADIOLOGY RESULTS Interpretation ECG Sinus rhythm Right bundle branch block Abnormal ECG When compared with ECG of 06-MAR-2024 04:53, Nonspecific T wave abnormality no longer evident in Inferior leads Confirmed by MD ESVIN, KERI ([id number]) on 03/12/2024 10:11:09 PM RADIOLOGY RESULTS 03/12/2024 11:3 2 AM CDT 03/12/2024 10:11 PM CDT Don Ramirez MD ECG ORDERABLES Performing Organization Address [facility] Co de Phone Number RADIOLOGY [...] DO LAB - BEAKER POCT LABORATORY POC [facility] Lab [address] [facility] Lab (1st floor, no room number) [place] [id number] * Lactic Acid Whole Blood w/ 1x [...] Apple Burt DO LAB - BLOOD O RDERACOURTNEY LABORATORY [facility] Acute Care Lab [address] Lab (1st floor, no room number) [place] [address] * (ABNORMAL) Hemoglobin A1c (03/07/2024 4:31 AM CDT) Hemoglobin A1C 6.6(H) <5.7 % 03/09/2024 11:29 AM CDT LABORATORY Comment: Normal <5.7% Prediabetes 5.7-6.4% ?? Diabetes 6.5% or higher Note: Adopted from ADA consensus guidelines. Blood VENOUS LINE / Unknown VAD(CVC, PICC) / Unknown 03/07/2024 4:31 AM CDT 03/07/2024 4:36 AM CDT Chago Vicente DO LAB - BLOOD ORDERAB LES LABORATORY [facility] Acute Care Lab [address] Lab (1st floor, no room number) [place] [address], [facility] * (ABNORMAL) Comprehensive metabolic panel (03/07/2024 4:31 AM CDT) Only the most recent of3 resultswithin the time period is included. [facility] Sodium 145 135 - 145 mmol/L [...] - 99 mg/dL 03/07/2024 5:25 AM CDT LABORATORY Alkaline Phosphatase 275(H) 40 - 150 [...] DO LAB - BLOOD O RDERABLES LABORATORY [facility] Acute Care Lab [address] [facility] Lab (1st floor, no room number) [place] [address], [facility] * Blood Culture Wrist, Left (03/06/2024 4:46 PM CDT) Only the most recent of4 resultswithin the time period is included. Culture No Growth 03/11/2024 6:46 PM CDT [facility] LABORATORY Blood STRUCTURE OF LEFT WRIST REGION / Unknown Venipuncture / Unknown 03/06/2024 4:46 PM CDT 03/06/2024 5:07 PM CDT Apple Burt DO LAB - MICRO G ENERAL ORDERABLES [facility] ID[facility] LABORATORY [facility] Inf. Diseases Diag. Lab [address] [facility], [address] [place] [address] * XR Chest Port 1 View [...] EXAM: XR CHEST PORT 1 VIEW LOCATION: [facility] DATE: 03/06/2024 INDICATION: central line confirmation of placement COMPARISON: 03/06/2024 1:28 AM Procedure Note Jeremiah Crocker MD - 03/06/2024 EXAM: XR CHEST PORT 1 VIEW LOCATION: [facility] DATE: 03/06/2024 INDICATION: central line confirmation of [...] MD LAB - BLOOD ORDERABL ES LABORATORY [facility] Acute Care Lab [address] [facility] Lab (1st floor, no room number) [place] [address], [facility] * (ABNORMAL) UA with Microscopic (03/06/2024 2:54 AM CDT) Color Urine Yellow Colorless, Straw, Light Yellow, Yellow 03/06/2024 4:11 AM CDT LABORATORY Appearance Urine Cloudy(A) Clear 03/06/20 4:11 AM CDT LABORATORY Glucose Urine Negative Negative mg/dL 03/06/2024 4:11 AM CDT LABORATORY Bilirubin Urine Negative Negative 4:11 AM CDT LABORATORY Ketones Urine Negative Negative mg/dL 03/06/2024 4:11 AM CDT LABORATORY Specific [place] Urine 1.018 1.003 - 1.035 03/06/2024 4:11 [...] MD LAB - URINE ORDERABL ES LABORATORY [facility] Lab [address] [facility] Lab (1st floor, no room number) [place] [address] * (ABNORMAL) Urine Culture (03/06/2024 2:54 [...] coli Cefazolin DAWSON <=4 ug/mL: Susceptible Comment:Cefazolin [place] C breakpoints are for the treatment of [...] coli Cefazolin DAWSON 8 ug/mL: Susceptible Comment:Cefazolin [place] C breakpoints are for the treatment of [...] - MICRO GENERAL ORDERABLES [facility] IDD LABORATORY [facility] Inf. Diseases Diag. Lab [address] [facility], [address] [place] [address] * (ABNORMAL) Verigene GN Panel (03/06/2024 [...] - MICRO GENERAL ORDERABLES [facility] IDD LABORATORY [facility] Inf. Diseases Diag. Lab [address] [facility], [address] [place] [address], [facility] * Symptomatic Influenza A/B, RSV, & [...] the Xpert Xpress CoV2/Flu/RSV Assay on the [employer] GeneXpert Instrument. This test should be ordered [...] management. This test was validated by the [facility]. These laboratories are certified under the Clinical Laboratory Improvement Amendments of 1988 (CLIA-88) as qualified to perform high complexity laboratory testing. Chago Velazquez MD LAB - MICRO GENERAL ORDERABLES LABORATORY [facility] Acute Care Lab [address] Lab (1st floor, no room number) [place] [address] * Extra Red Top Tube (03/06/2024 12:52 AM CDT) Hold Specimen [facility] 03/06/2024 2:01 AM CDT RH LABORATORY Blood BLOOD SPECIMEN / Unknown Venipuncture / Unknown 03/06/2024 12:52 AM CDT 03/06/2024 12:59 AM CDT Chago Velazquez MD LAB - BLOOD ORDERABL ES [facility] Lab [address] Lab (1st floor, no room number) [place] [address], [place] * Extra Blue Top Tube (03/06/2024 12:52 AM CDT) Hold Specimen [facility] 03/06/2024 2:01 AM CDT RH LABORATORY Blood BLOOD SPECIMEN / Unknown Venipuncture / Unknown 03/06/2024 12:52 AM CDT 03/06/2024 12:59 AM CDT Chago Velazquez MD LAB - BLOOD ORDERABL ES [facility] Lab [address] Lab (1st floor, no room number) [place] [address] * (ABNORMAL) CBC with platelets and [...] MD LAB - BLOOD ORDERABL ES LABORATORY [facility] Acute Care Lab [address] [facility] Lab (1st floor, no room number) [place] [address], [facility] * (ABNORMAL) Procalcitonin (03/06/2024 12:52 AM CDT) [facility] Procalcitonin 2.44(H) <0.50 ng/mL 03/06/2024 1:41 [...] See Procalcitonin Guidance document for more details. [email or web address]/documents/[email or web address]-ant ibiot [email or web address] Factors that may affect PCT levels (not [...] Velazquez MD LAB - BLOOD ORDERABL ES [facility] Acute Care Lab [address] [facility] Lab (1st floor, no room number) [place] [address], [facility] * Lab Result - HIM Scan (02/06/2024 12:00 AM CDT) 02/06/2024 Provider Outside NON-BEAKER LAB TE STING * EKG Cardiac - HIM Scan (01/16/2024 12:00 AM CDT) 01/16/2024 Provider Outside ECG ORDERABLES from Last 3 Months Additional Health Concerns Infection Onset Date 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
--- OUTSIDE RECORDS SUMMARY | 2024-04-09 08:14 | XMS_ITS | Encounter Summary ---
Author Organization [facility] Address [address] [place] [address] Care Team Providers Care Rib Puller Name Role Phone [facility], [facility]- Primary Care Provider Flo Mckeon MD Primary Care Provider [phone] Reason for Referral * Home Health Therapies & Aides (Routine: Next available opening) - Pending Review Specialty Diagnoses / Procedures Referred By Contfarideh t Referred To Contact Diagnoses Pressure injury of right ischium, stage 4 (H) Dain Barnes MD [address] [place] [address] Referral ID Status Reason Start Date Expiration Date V isits Requested Visits Authorized [id number] Pending Review 03/14/2024 03/14/2025 1 1 Question Answer Reason for Referral: Fdc Fdc Eval and Treat for: Complex aftercare, Wound [...] 03/14/2024 Provider to follow patient FLO MCKEON [[id number]] Additional Information: Wound dressing change Friday and [...] hematuria, site unspecified [facility] [address] [place] [address] Referral ID Status Reason Start Date Expiration Date Visits Re quested Visits Authorized [id number] 1 1 Encounter Details Date Type Department Care Team (Late st Contact Info) Description 03/06/2024 12:34 AM CDT - 03/14/2024 5:17 PM CDT Hospital Encounter [place] [address] [facility] [address] [place] [id number] Chago Velazquez MD [facility] [address] [place], [place] [id number] Chago Vicente DO [address] [place] [address] Pressure injury of right ischium, stage 4 [...] from the original note were not included. [facility] Discharge Summary Hospitalist Date of Admission: 03/06/2024 Date of Discharge: 03/14/2024 Provider: Dain Barnes MD. [facility] Date of Service (when I last saw [...] EXAM: XR CHEST PORT 1 VIEW LOCATION: [facility] DATE: 03/06/2024 INDICATION: Fever COMPARISON: 12/21/2013 Impression IMPRESSION: Mild cardiac enlargement. Normal pulmonary vascularity. Linear scarring right lung base. Marked vascular calcification. Postoperative changes thoracic and lumbar spine. XR Chest Port 1 View Narrative EXAM: XR CHEST PORT 1 VIEW LOCATION: [facility] DATE: 03/06/2024 INDICATION: central line confirmation [...] Plan: yes Persons Notified of Discharge Plans: [facility], pt's vocational case manager Adela Patient/Family in Agreement with the Plan: yes Additional Information: Patient is medically ready for discharge today back to home with daughter and resumption of [employer] rep and MANAGER QA through [facility]. [facility] provides patient with RN visits on Friday and Friday for wound vac dressing changes. Spoke with Adela pt's home [employer] rep on 03/12 and they have patient on scheduled for Thursday 03/15 at 2pm for vac dressing change. Text sent to Adela to update on discharge today. Pt's daughter Elvi will transport patient back to home with van. Bedside RN will arrange time with daughter. Home Care orders faxed to [facility] to review. No further CM needs noted, please call if needs arise. ADDENDUM 1228: Received call from dtr Elvi who wanted to make sure home care is all set up to resume. Updated Elvi that pt's RN Daniela has been notified and also orders to resume home care with [facility] has already loida faxed to agency. Home Care is set to resume tomorrow 03/15 @ 2pm for vac dressing change. Elvi plans to be here at 4pm to transport patient back to home. Luciana Chaparro RN Business Office Technician [facility] [phone] * Dain Barnes MD - 03/13/2024 12:13 PM CDT Images from the original note were not included. [facility] Hospitalist Progress Note Admit 03/06/2024 12:34 AM Name: Prerna Major Provider: Dain Barnes MD, [facility] Date of Service: 03/13/2024 Reason for Stay [...] from the original note were not included. 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 Is followed at wound clinic in [place] and is currently using NPWT. Patient requests [...] couple months. Is followedat wound clinic in [place]. Currently using Vashe packing. Per patient they [...] prior to replacing NPWT Suction setting: -100 gi tech to assess integrity of dressing and ensure [...] 12 Crescencio Roach RN CWOCN Contact Via [facility] Nurse (Umesh) Dept. 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 ADDENDUM 1320: Spoke with Adela @ [facility] and confirmed that if patient discharges over the weekend then home [employer] rep will see patient on Thursday 03/15 to resume home care and change vac dressing. If patient discharges on Thursday 03/15 then vac dressing will need to be changed at hospital prior to discharge and home care will resume services on 03/17 for the next wound vac dressing change. Luciana Chaparro RN Business Office Technician [facility] [phone] * Tanvi Smiley RN - 03/11/2024 1:43 PM CDT Care Management Follow Up Length of Stay (days): 5 Expected Discharge Date: 03/12/2024 Concerns to be Addressed: discharge planning Patient plan of care discussed at interdisciplinary rounds: Yes Anticipated Discharge Disposition: Home Care Patient/Family in Agreement with the Plan: yes Referrals Placed by LES/DAISY: Homecare Additional Information: Received call from [facility] with questions regarding discharge. They needed [...] RN aware. 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 Fox Watson MD Hospitalist Service [facility] Interval History Symptoms No [...] no tenderness , Bowel Sounds are Positive AUDITOR APPRAISER: Alert, Oriented x 3, Data Recent Labs [...] from the original note were not included. [facility] Medicine Progress Note - [...] Repeat LFT's improved this am Atrial fibrillation LUMBER SALVAGER metoprolol dose of 50mg/day has been on [...] 2-4 Days Apple Burt DO Hospitalist Service [facility] Securely message with [employer] (more info) Text page via [facility] Paging/Directory Interval History Slept well. Feeling [...] 1646 03/06/2024 1707 Blood Culture Wrist, Left [[id number]] Blood from Wrist, Left In process Component Value No component results 03/06/2024 1639 03/06/2024 1707 Blood Culture Arm, Left [[id number]] Blood from Arm, Left In process Component Value No component results 03/06/2024 0254 03/06/2024 0712 Urine Culture [[id number]] Urine, Catheter In process Component Value No component results 03/06/2024 0155 03/06/2024 1535 Blood Culture Hand, Left [[id number]] (Abnormal) Blood from Hand, Left Preliminary result Component Value Culture Positive on the 1st day of incubation [P] Gram negative bacilli [P] 1 of 2 bottles 03/06/2024 0155 03/06/2024 1746 Verigene GN Panel [[id number]] (Abnormal) Blood from Hand, Left Final result [...] Influenza A/B, RSV, & SARS-CoV2 PCR (COVID-19) Nose[[id number]] Swab from Nose Final result Component Value Influenza A PCR Negative Influenza B PCR Negative RSV PCR Negative SARS CoV2 PCR Negative NEGATIVE: SARS-CoV-2 (COVID-19) RNA not detected, presumed negative. 03/06/2024 0056 03/06/2024 1802 Blood Culture Peripheral Blood [[id number]] (Abnormal) Peripheral Blood Preliminary result Component Value [...] from the original note were not included. [facility] Medicine Progress Note - [...] Daughter changes packing on other Will request [facility] consultation when available Hypokalemia Will supplement per protocol Rheumatoid arthritis: Stress dose steroids ordered Chronic prednisone dose on hold Elevated LFTs Likely secondary to hypoperfusion from hypotension and sepsis Repeat LFT's in the am Atrial fibrillation LUMBER SALVAGER metoprolol dose of 50mg/day - on hold [...] 2-4 Days Apple Burt DO Hospitalist Service [facility] Securely message with [employer] (more info) Text page via [employer] Paging/Directory Interval History Feeling ok. Hungry. No [...] 1646 03/06/2024 1707 Blood Culture Wrist, Left [[id number]] Blood from Wrist, Left In process Component Value No component results 03/06/2024 1639 03/06/2024 1707 Blood Culture Arm, Left [[id number]] Blood from Arm, Left In process Component Value No component results 03/06/2024 0254 03/06/2024 0712 Urine Culture [[id number]] Urine, Catheter In process Component Value No component results 03/06/2024 0155 03/06/2024 1535 Blood Culture Hand, Left [[id number]] (Abnormal) Blood from Hand, Left Preliminary result Component Value Culture Positive on the 1st day of incubation [P] Gram negative bacilli [P] 1 of 2 bottles 03/06/2024 0155 03/06/2024 1535 Verigene GN Panel [[id number]] Blood from Hand, Left In process Component Value No component results 03/06/2024 0145 03/06/2024 0228 Symptomatic Influenza A/B, RSV, & SARS-CoV2 PCR (COVID-19) Nose[[id number]] Swab from Nose Final result Component Value Influenza A PCR Negative Influenza B PCR Negative RSV PCR Negative SARS CoV2 PCR Negative NEGATIVE: SARS-CoV-2 (COVID-19) RNA not detected, presumed negative. 03/06/2024 0056 03/06/2024 1701 Blood Culture Peripheral Blood [[id number]] (Abnormal) Peripheral Blood Preliminary result Component Value [...] EXAM: XR CHEST PORT 1 VIEW LOCATION: [facility] DATE: 03/06/2024 INDICATION: Fever COMPARISON: 12/21/2013 Impression IMPRESSION: Mild cardiac enlargement. Normal pulmonary vascularity. Linear scarring right lung base. Marked vascular calcification. Postoperative changes thoracic and lumbar spine. XR Chest Port 1 View Narrative EXAM: XR CHEST PORT 1 VIEW LOCATION: [facility] DATE: 03/06/2024 INDICATION: central line confirmation [...] Vicente DO - 03/06/2024 5:40 AM CDT [facility] Hospitalist H&P Name: Prerna Major Date of : 1945 Age: [age] year old Date of admission: 03/06/2024 Primary care provider: [facility], [facility]- Assessment and Plan: Prerna Major is a [...] but are working on obtaining records from [place]. The patient does report a severe anaphylactic [...] VAC on 1 of these. Will request [facility] consultation. I do not suspect that her [...] activities per the note. Addendum: Records from [place] came in previous urine cultures were resistant [...] but are working on obtaining records from [place]. The patient does report a severeanaphylactic allergy [...] Medication Sig Last Dose Taking? Auth Provider Em Physician End Date bisacodyl (DULCOLAX) 10 MG suppository [...] EXAM: XR CHEST PORT 1 VIEW LOCATION: [facility] DATE: 03/06/2024 INDICATION: Fever COMPARISON: 12/21/2013 Impression IMPRESSION: Mild cardiac enlargement. Normal pulmonary vascularity. Linear scarring right lung base. Marked vascular calcification. Postoperative changes thoracic and lumbar spine. XR Chest Port 1 View Narrative EXAM: XR CHEST PORT 1 VIEW LOCATION: [facility] DATE: 03/06/2024 INDICATION: central line confirmation of placement COMPARISON: 03/06/2024 1:28 AM Impression IMPRESSION: Interval placement of a right IJ central venous catheter which courses at least to the level of the superior cavoatrial junction but is partially obscured by overlapping metallic spinal hardware. Otherwise no interval change. Chago Vicente DO MPH [facility] Hospitalist [place] [address] 03/06/2024 documented in this encounter Consult Notes [...] low appetite or changes to PO intakes LUMBER SALVAGER. - Use of oral supplements: None. - [...] Dias RDN, LD Clinical Dietitian 3rd floor/ICU: [phone] All other floors: [phone] Weekend/holiday: [phone] Office: [phone] * Tanvi Smiley RN - 03/09/2024 3:01 PM CDTAssociated Order(s): CARE MANAGEMENT / SOCIAL WORK IP CONSULT Care Management Initial Consult General Information Assessment completed with: Patient, Children, Type of CM/SW Visit: Initial Assessment Primary Care Provider verified and updated as needed: Readmission within the last 30 days: Reason for Consult: discharge planning Advance Care Planning: Communication Assessment Patient's communication style: spoken language (Hong Konger or Bilingual) Hearing Difficulty or Deaf: yes [...] care services: Yes Skilled Home Care Services: Fdc, Home Health Aid Community Resources: Equipment currently [...] file Social Connections: Unknown (02/03/2022) Received from [employer] [facility] Social Connections Frequency of Communication with Friends [...] and she is their primary primary care coordinator. They have a wheelchair, lift, and hospital bed. She feels that they have the appropriate DME at this time. She does not qualify for any [facility] services at this time due to income. Patient is open to [facility] for RN and MANAGER QA. This was verified and they will need new orders ondischarge. They are currently providing wound vac changes twice a week and the third dressing change is done at [place] [facility]. They also assist with her other wound and the daughter performsthis wound care the other days. Daughter states that there has been concern that this wound is tunneling and may connect with the other that has the vac. They have been talking about placing a wound vac on this as well per the daughter. Updated [facility] nurse on this information. CM team will continue to follow for discharge planning. Tanvi Smiley RN BSN OCN Business Office Technician [facility] [phone] * Crescencio Roach RN - 03/09/2024 11:58 AM CDTAssociated Order(s): WOUND OSTOMY CONTINENCE NURSE IP CONSULT Images from the original note were not included. 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 Is followed at wound clinic in [place] and is currently using NPWT. Patient requests [...] couple months. Is followedat wound clinic in [place]. Currently using Vashe packing. Per patient they [...] prior to replacing NPWT Suction setting: -100 gi tech to assess integrity of dressing and ensure [...] 12 Crescencio Roach RN CWOCN Contact Via [facility] Nurse (Umesh) Dept. Office Number: [phone] * Robby Simms MD - 03/06/2024 11:00 [...] EXAM: XR CHEST PORT 1 VIEW LOCATION: [facility] DATE: 03/06/2024 INDICATION: Fever COMPARISON: 12/21/2013 Impression IMPRESSION: Mild cardiac enlargement. Normal pulmonary vascularity. Linear scarring right lung base. Marked vascular calcification. Postoperative changes thoracic and lumbar spine. XR Chest Port 1 View Narrative EXAM: XR CHEST PORT 1 VIEW LOCATION: [facility] DATE: 03/06/2024 INDICATION: central line confirmation [...] line CODE: DNR/okay to intubate Dispo: ICU [facility] CRITICAL CARE STAFF NOTE I am managing [...] the critical care unit. Robby Simms MD Bench Assembler Electricalground hand, Pulmonary/CC Pager: [phone] documented in this encounter ED Notes * [...] Notes I reviewed Care Everywhere and updated [facility]. Past Medical History Medical History and Problem [...] Bilirubin Urine Negative Ketones Urine Negative Specific [place] Urine 1.018 Blood Urine Small (*) pH [...] Right bundle branch block Rate 101 bpm. GA interval 144 ms. QRS duration 116 ms. [...] and Vascular access Consent: Verbal from Family [place] Protocol: [place] protocol was followed and time out conducted [...] ICU received her urine culture results from [facility] showing resistant to cephalosporins and sensitivity to imipenem. I have communicated this to the [facility] hospitalist who will change antibiotics accordingly [...] MAR) Taken 03/14/2024 0548 by Angelina Alvarado, carpet sewing machine operator Interventions: medication (see MAR) Taken 03/14/2024 [...] shift note. Outcome: Progressing Flowsheets (Taken 03/13/2024 2733) Outcome Evaluation: afebrile, wound vac intact, delacruz [...] BP, gave extra dose of metoprolol, 1x, [id number] given for generalized pain and wound care, [...] by Angelina Alvarado RN Head of Bed ([facility]) Positioning: HOB at 20-30 [...] Goal: Optimal Gas Exchange 03/12/20241557 by Ezequiel eHlton RN Outcome: Progressing 03/12/20241557 by Ezequiel Helton [...] shift note. Outcome: Progressing Flowsheets (Taken 03/11/2024 8717) Outcome Evaluation: wound care done Plan of [...] Neri RN Outcome: Progressing 03/10/20243 by Charlotte eNri RN Outcome: Progressing Goal Outcome Evaluation: Plan [...] Comfort Recent Flowsheet Documentation Taken 03/09/20242156 by Ccii James RNcarpet sewing machine operator Interventions: medication (see MAR) Intervention: Provide [...] Flowsheet Documentation Taken 03/09/2024602 by Nicole Lowery RNcarpet sewing machine operator Interventions: medication (see MAR) repositioned Taken 03/09/2024 0020 by Nicole Lowery RNcarpet sewing machine operator Interventions: repositioned Goal: Readiness for Transition [...] Flowsheet Documentation Taken 03/09/2024602 by Nicole Lowery RNcarpet sewing machine operator Interventions: medication (see MAR) repositioned Taken 03/09/2024 0020 by Nicole Lowery RNcarpet sewing machine operator Interventions: repositioned Problem: Fall Injury Risk [...] Documentation Taken 03/08/2024 0638 by Nicole Lowery, carpet sewing machine operator Interventions: medication (see MAR) Taken 03/08/202448 by Nicole Lowery, carpet sewing machine operator Interventions: medication (see MAR) repositioned Goal: [...] Documentation Taken 03/08/2024 06 by Nicole Lowery RNcarpet sewing machine operator Interventions: medication (see MAR) Taken 03/08/202448 by Nicole Lowery RNcarpet sewing machine operator Interventions: medication (see MAR) repositioned Intervention: [...] shift note. Outcome: Progressing Flowsheets (Taken 03/07/2024 7715) Outcome Evaluation: Delacruz draining clear/yellow. WOC consult. [...] supports utilized tubing/devices free from skin contact [id number] areas padded Taken 03/07/2024 0000 by Charlotte Torres RN Body Position: (prefers left side) left side-lying heels elevated Skin Protection: incontinence pads utilized adhesive use limited silicone foam dressing in place transparent dressing maintained Device Skin Pressure Protection: absorbent pad utilized/changed positioning supports utilized tubing/devices free from skin contact [id number] areas padded Taken 03/06/20242238 by Charlotte Torres [...] repositioned Taken 03/06/20241999 by Kampa, Charlotte B, carpet sewing machine operator Interventions: (not due for pain medication [...] * Pharmacy-Admission Medication History - Nimco Barbour, [facility] - 03/06/2024 11:32 AM CDT [...] taking 2 tabs daily. Changes made to LUMBER SALVAGER medication list: Added: probiotic, tylenol, zinc, vitamin c, naproxen, lasix, gabapnetin, metoprolol xl, oxycodone, kcl, prednisone 10 daily Deleted: from 2013:dulcolas supp prn, ativan 0.5mg bid prn, metoprolol 50mg bid, collagen, zofran prn, miralax prn, prednisone 5mg daily, senna/doc 1 bid Changed: None Allergies reviewed with patient and updates made in EHR: yes Medication History Completed By: Nimco Barbour RPH 03/06/2024 11:32 AM LUMBER SALVAGER Med List Medication Sig Last Dose acetaminophen [...] LAB - BLOOD ORDER [facility] Acute Care Lab [address] Lab (1st floor, no room number) [place] [address], [facility] * (ABNORMAL) Basic metabolic panel (03/14/2024 6:02 [...] MD LAB - BLOOD ORDER [facility]ON LABORATORY [facility] [address] [facility] Lab (1st floor, no room number) [place] [address] * Potassium (03/13/2024 5:04 AM CDT) Potassium 3.9 3.4 - 5.3 mmol/L 03/13/2024 5:44 AM CDT LABORATORY Blood TOPOGRAPHY UNKNOWN / Unknown VAD(CVC, PICC) / Unknown 03/13/2024 5:04 AM CDT 03/13/2024 5:22 AM CDT Don Ramirez MD LAB - BLOOD ORDER TYRON RH LABORATORY [facility] [address] Lab (1st floor, no room number) [place] [address] * EKG 12-lead, tracing only (03/12/2024 11:32 AM CDT) Systolic Blood Pressure mmHg RADIOLOGY RESULTS Diastolic Blood Pressure mmHg RADIOLOGY RESULTS Ventricular Rate 89 BPM RAD IOLOGY RESULTS Atrial Rate 89 BPM RADIOLOG Y RESULTS GA Interval 128 ms RADIOLOG Y RESULTS QRS Duration 118 ms RADIOLO GY RESULTS QT 376 ms RADIOLOGY RESULTS QTc 457 ms RADIOLOGY RESULTS P Levant 59 degrees RADIOLOGY RESULTS R AXIS 93 degrees RADIOLOGY RESULTS T Levant 53 degrees RADIOLOGY RESULTS Interpretation ECG Sinus [...] MD LAB - BLOOD ORDERABL ES LABORATORY [facility] [address] [facility] Lab (1st floor, no room number) [place] [address] * (ABNORMAL) Basic metabolic panel (03/12/2024 6:03 AM CDT) [facility] Sodium 143 135 - 145 mmol/L [...] LAB - BLOOD ORDERABL ES RH LABORATORY [facility] [address] [facility] Lab (1st floor, no room number) [place] [address] * (ABNORMAL) CBC with platelets (03/11/2024 1:51 [...] - BLOOD ORDERABL ES Performing Organization Address City/[facility]/ZIP Co de Phone Number [facility] [address] Lab (1st floor, no room number) [place] [address] * Potassium (03/11/2024 1:51 PM CDT) Potassium 4.3 3.4 - 5.3 mmol/L 03/11/2024 2:18 PM CDT LABORATORY Blood BLOOD SPECIMEN / Unknown Venipuncture / Unknown 03/11/2024 1:51 PM CDT 03/11/2024 2:00 PM CDT Fox Watson MD LAB - BLOOD ORDERABL ES Performing Organization Address [facility] Co de Phone Number [facility] Lab [address] Lab (1st floor, no room number) [place] [phone] * (ABNORMAL) Basic metabolic panel (03/11/2024 6:18 [...] LAB - BLOOD ORDERABL ES RH LABORATORY [facility] [address] [facility] Lab (1st floor, no room number) [place] [address] * (ABNORMAL) CBC with platelets (03/10/2024 2:59 [...] Watson MD LAB - BLOOD ORDERABL ES [facility] [address] Lab (1st floor, no room number) [place] [address], [facility] * Potassium (03/10/2024 5:23 AM CDT) Potassium 3.6 3.4 - 5.3 mmol/L 03/10/2024 5:58 AM CDT RH LABORATORY Blood VENOUS BLOOD / Unknown VAD(CVC, PICC) / Unknown 03/10/2024 5:23 AM CDT 03/10/2024 5:29 AM CDT Fox Watson MD LAB - BLOOD ORDERABL ES Performing Organization Address City/[facility]/ZIP Co de Phone Number [facility] [address] Lab (1st floor, no room number) [place] [address], [facility] * Potassium (03/09/2024 6:16 AM CDT) Potassium 3.9 3.4 - 5.3 mmol/L 03/09/2024 7:13 AM CDT RH LABORATORY Blood VENOUS LINE / Unknown VAD(CVC, PICC) / Unknown 03/09/2024 6:16 AM CDT 03/09/2024 6:29 AM CDT Chago Vicente DO LAB - BLOOD ORDERAB LES [facility] [address] Lab (1st floor, no room number) [address] * (ABNORMAL) Glucose by meter (03/09/2024 2:17 AM CDT) GLUCOSE BY METER POCT 171(H) 70 - 99 mg/dL 03/09/2024 2:29 AM CDT RH LABORATORY POC Blood, Capillary BLOOD SPECIMEN / Unknown 03/09/2024 2:17 AM CDT 03/09/2024 2:29 AM CDT Chago Vicente DO LAB - BEAKER POCT LABORATORY POC [facility] [address] Lab (1st floor, no room number) [address] * Potassium (03/08/2024 9:21 AM CDT) Potassium 3.9 3.4 - 5.3 mmol/L 03/08/2024 9:43 AM CDT LABORATORY Blood VENOUS LINE / Unknown VAD(CVC, PICC) / Unknown 03/08/2024 9:21 AM CDT 03/08/2024 9:25 AM CDT Apple Burt DO LAB - BLOOD O RDERABLES LABORATORY [facility] [address] Lab (1st floor, no room number) [address] * (ABNORMAL) Glucose by meter (03/08/2024 2:24 AM CDT) GLUCOSE BY METER POCT 165(H) 70 - 99 mg/dL 03/08/2024 2:32 AM CDT RH LABORATORY POC Blood, Capillary BLOOD SPECIMEN / Unknown 03/08/2024 2:24 AM CDT 03/08/2024 2:32 AM CDT Chago Vicente DO LAB - BEAKER POCT LABORATORY [facility] [address] Lab (1st floor, no room number) [place] [phone] [place] [address] * Lactic Acid Whole Blood w/ 1x repeat in 2 hrs when >2 (03/07/2024 6:54 PM CDT) Lactic Acid, Initial 1.9 0.7 - 2.0 mmol/L 03/07/2024 7:12 PM CDT LABORATORY Blood BLOOD SPECIMEN / Unknown VAD(CVC, PICC) / Unknown 03/07/2024 6:54 PM CDT 03/07/2024 7:10 PM CDT Apple Burt DO LAB - BLOOD O RDERABLES Performing Organization Address [facility]/ZIP Co de Phone Number [facility] [address] Lab (1st floor, no room number) [place] [phone] * (ABNORMAL) Glucose by meter (03/07/2024 4:03 PM CDT) GLUCOSE BY METER POCT 174(H) 70 - 99 mg/dL 03/07/2024 4:11 PM CDT LABORATORY POC Blood, Capillary BLOOD SPECIMEN / Unknown 03/07/2024 4:03 PM CDT 03/07/2024 4:11 PM CDT Chago Vicente DO LAB - BEAKER POCT LABORATORY [facility] [address] Lab (1st floor, no room number) [place] [phone] * (ABNORMAL) Glucose by meter (03/07/2024 12:13 PM CDT) GLUCOSE BY METER POCT 169(H) 70 - 99 mg/dL 03/07/2024 12:20 PM CDT LABORATORY POC Blood, Capillary BLOOD SPECIMEN / Unknown 03/07/2024 12:13 PM CDT 03/07/2024 12:20 PM CDT Chago Vicente DO LAB - BEAKER POCT Performing Organization Address City/[facility]/ZIP Co de Phone Number LABORATORY [facility] [address] Lab (1st floor, no room number) [place] [address] * (ABNORMAL) Glucose by meter (03/07/2024 8:08 AM CDT) GLUCOSE BY METER POCT 124(H) 70 - 99 mg/dL 03/07/2024 8:15 AM CDT LABORATORY POC Blood, Capillary BLOOD SPECIMEN / Unknown 03/07/2024 8:08 AM CDT 03/07/2024 8:15 AM CDT Chago JACKSON - BEAKER POCT Performing Organization Address [facility]/ZIP Co de Phone Number LABORATORY [facility] [address] Lab (1st floor, no room number) [place] [address], [facility] * (ABNORMAL) Hemoglobin A1c (03/07/2024 4:31 AM CDT) Hemoglobin A1C 6.6(H) <5.7 % 03/09/2024 11:29 AM CDT LABORATORY Comment: Normal <5.7% Prediabetes 5.7-6.4% ?? Diabetes 6.5% or higher Note: Adopted from ADA consensus guidelines. Blood VENOUS LINE / Unknown VAD(CVC, PICC) / Unknown 03/07/2024 4:31 AM CDT 03/07/2024 4:36 AM CDT Chago Vicente DO LAB - BLOOD ORDERAB LES [facility] Lab [address] Lab (1st floor, no room number) [place] [address], [facility] * (ABNORMAL) Comprehensive metabolic panel (03/07/2024 4:31 AM CDT) [facility] Sodium 145 135 - 145 mmol/L [...] LAB - BLOOD O RDERABLES RH LABORATORY [facility] [address] [facility] Lab (1st floor, no room number) [place] [address] * (ABNORMAL) CBC with platelets (03/07/2024 4:31 [...] Burt DO LAB - BLOOD O RDERABLES [facility] [address] Lab (1st floor, no room number) [place] [address] * (ABNORMAL) Glucose by meter (03/07/2024 4:14 AM CDT) GLUCOSE BY METER POCT 135(H) 70 - 99 mg/dL 03/07/2024 4:20 AM CDT LABORATORY POC Blood, Capillary BLOOD SPECIMEN / Unknown 03/07/2024 4:14 AM CDT 03/07/2024 4:20 AM CDT Chago Vicente DO LAB - BEAKER POCT Performing Organization Address [facility]/ZIP Co de Phone Number [facility] Lab [address] Lab (1st floor, no room number) [place] [phone] * Potassium (03/06/2024 9:46 PM CDT) Potassium 4.0 3.4 - 5.3 mmol/L 03/06/2024 10:13 PM CDT RH LABORATORY Blood VENOUS LINE / Unknown VAD(CVC, PICC) / Unknown 03/06/2024 9:46 PM CDT 03/06/2024 9:52 PM CDT Apple Burt DO LAB - BLOOD O RDERABLES Performing Organization Address City/[facility]/ZIP Co de Phone Number [facility] [address] Lab (1st floor, no room number) [place] [address] * (ABNORMAL) Glucose by meter (03/06/2024 7:42 PM CDT) GLUCOSE BY METER POCT 149(H) 70 - 99 mg/dL 03/06/2024 7:49 PM CDT RH LABORATORY POC Blood, Capillary BLOOD SPECIMEN / Unknown 03/06/2024 7:42 PM CDT 03/06/2024 7:49 PM CDT Chago Vicente DO LAB - BEAKER POCT LABORATORY [facility] Lab [address] Lab (1st floor, no room number) [place] [address] * Blood Culture Wrist, Left (03/06/2024 4:46 PM CDT) Culture No Growth 03/11/2024 6:46 PM CDT [facility] ID[facility] LABORATORY Blood STRUCTURE OF LEFT WRIST REGION / Unknown Venipuncture / Unknown 03/06/2024 4:46 PM CDT 03/06/2024 5:07 PM CDT Apple Burt DO LAB - MICRO G ENERAL ORDERABLES [facility] LABORATORY [facility] Inf. Diseases Diag. Lab [address] [facility] [place] [address] * Blood Culture Arm, Left (03/06/2024 4:39 PM CDT) Culture No Growth 03/11/2024 6:46 PM CDT [facility] LABORATORY Blood STRUCTURE OF LEFT UPPER LIMB / Unknown Venipuncture / Unknown 03/06/2024 4:39 PM CDT 03/06/2024 5:07 PM CDT Apple Burt DO LAB - MICRO G ENERAL ORDERABLES [facility] LABORATORY [facility] Inf. Diseases Diag. Lab [address] [facility] [place] [address], [facility] * (ABNORMAL) Glucose by meter (03/06/2024 4:06 PM CDT) GLUCOSE BY METER POCT 123(H) 70 - 99 mg/dL 03/06/2024 4:13 PM CDT LABORATORY POC Blood, Capillary BLOOD SPECIMEN / Unknown 03/06/2024 4:06 PM CDT 03/06/2024 4:13 PM CDT Chago JACKSON - HERIBERTO POCT LABORATORY [facility] [address] Lab (1st floor, no room number) [place] [address], [facility] * (ABNORMAL) Glucose by meter (03/06/2024 12:01 PM CDT) GLUCOSE BY METER POCT 156(H) 70 - 99 mg/dL 03/06/2024 1:40 PM CDT LABORATORY POC Blood, Capillary BLOOD SPECIMEN / Unknown 03/06/2024 12:01 PM CDT 03/06/2024 1:40 PM CDT Chago JACKSON - HERIBERTO POCT LABORATORY [facility] [address] Lab (1st floor, no room number) [place] [address], [facility] * (ABNORMAL) Comprehensive metabolic panel (03/06/2024 10:05 [...] DO LAB - BLOOD O RDERABLES LABORATORY [facility] [address] Lab (1st floor, no room number) [place] [address] * (ABNORMAL) Glucose by meter (03/06/2024 7:58 AM CDT) [facility] GLUCOSE BY METER POCT 120(H) 70 - 99 mg/dL 03/06/2024 8:04 AM CDT LABORATORY POC Blood, Capillary BLOOD SPECIMEN / Unknown 03/06/2024 7:58 AM CDT 03/06/2024 8:04 AM CDT Chago Vicente DO LAB - BEAKER POCT LABORATORY POC [facility] [address] Lab (1st floor, no room number) [place] [address] * XR Chest Port 1 [...] EXAM: XR CHEST PORT 1 VIEW LOCATION: [facility] DATE: 03/06/2024 INDICATION: central line confirmation of placement COMPARISON: 03/06/2024 1:28 AM Procedure Note Jeremiah Crocker MD - 03/06/2024 EXAM: XR CHEST PORT 1 VIEW LOCATION: [facility] DATE: 03/06/2024 INDICATION: central line confirmation [...] Atrial Rate 101 BPM RADIOLOG Y RESULTS GA Interval 144 ms RADIOLOG Y RESULTS QRS Duration 116 ms RADIOLO GY RESULTS QT 360 ms RADIOLOGY RESULTS QTc 466 ms RADIOLOGY RESULTS P Levant 70 degrees RADIOLOGY RESULTS R AXIS 60 degrees RADIOLOGY RESULTS T Levant 33 degrees RADIOLOGY RESULTS Interpretation ECG Sinus tachycardia Right bundle branch block Abnormal ECG When compared with ECG of 03-DEC-2013 08:21, Sinus rhythm has replaced Atrial fibrillation Vent. rate has decreased BY ??54 BPM Right bundle branch block is now Present Confirmed by - EMERGENCY ROOM, PHYSICIAN ([id number]), department editor THELMA QUINONES ([id number]) on 03/09/2024 7:49:22 AM RADIOLOGY RESULTS 03/06/2024 [...] Velazquez MD LAB - BLOOD ORDERABL ES [facility] [address] [facility] Lab (1st floor, no room number) [place] [address], [facility] * (ABNORMAL) Urine Culture (03/06/2024 2:54 AM [...] coli Cefazolin DAWSON <=4 ug/mL: Susceptible Comment:Cefazolin OK C breakpoints are for the treatment of [...] coli Cefazolin DAWSON 8 ug/mL: Susceptible Comment:Cefazolin [place] C breakpoints are for the treatment of [...] - MICRO GENERAL ORDERABLES [facility] IDD LABORATORY [facility] Inf. Diseases Diag. Lab [address] [facility], [address] [place] [address] * (ABNORMAL) UA with Microscopic [...] mg/dL 03/06/2024 4:11 AM CDT LABORATORY Specific [place] Urine 1.018 1.003 - 1.035 03/06/2024 4:11 [...] MD LAB - URINE ORDERABL ES LABORATORY [facility] [address] Lab (1st floor, no room number) [place] [address], [facility] * (ABNORMAL) Verigene GN Panel (03/06/2024 1:55 [...] - MICRO GENERAL ORDERABLES [facility] IDD LABORATORY [facility] Inf. Diseases Diag. Lab [address] [facility], Room [place] [phone] * (ABNORMAL) Blood Culture Hand, Left (03/06/2024 [...] - MICRO GENERAL ORDERABLES Performing Organization Address [facility] Co de Phone Number [facility] LABORATORY [facility] Inf. Diseases Diag. Lab [address] [facility], Room [place] [phone] * Symptomatic Influenza A/B, RSV, & SARS-CoV2 PCR (COVID-19) Nose (03/06/2024 1:45 AM CDT) Pathologist [facility] Influenza A PCR Negative Negative 03/06/2024 [...] the Xpert Xpress CoV2/Flu/RSV Assay on the Botanical TansXpert Instrument. This test should be ordered for [...] management. This test was validated by the [facility] Process Data Control. These laboratories are certified under the Clinical Laboratory Improvement Amendments of 1988 (CLIA-88) as qualified to perform high complexity laboratory testing. Chago Velazquez MD LAB - MICRO GENERAL ORDERABLES [facility] [address] [facility] Lab (1st floor, no room number) [place] [address] * XR Chest Port 1 View (03/06/2024 1:33 AM CDT) Anatomical Region Laterality Modality Chest Digital Radiogra phy 03/06/2024 1:33 AM CDT Impressions 03/06/2024 1:36 AM CDT IMPRESSION: Mild cardiac enlargement. Normal pulmonary vascularity. Linear scarring right lung base. Marked vascular calcification. Postoperative changes thoracic and lumbar spine. Narrative 03/06/2024 1:36 AM CDT EXAM: XR CHEST PORT 1 VIEW LOCATION: [facility] DATE: 03/06/2024 INDICATION: Fever COMPARISON: 12/21/2013 Procedure Note Darryl Garcia MD - 03/06/2024 EXAM: XR CHEST PORT 1 VIEW LOCATION: [facility] DATE: 03/06/2024 INDICATION: Fever COMPARISON: 12/21/2013 [...] DAWSON <=0.25 ug/mL: Susceptible Escherichia coli Levofloxacin ADWSON <=0.12 ug/mL: Susceptible Escherichia coli Trimethoprim/Sulfame thoxaz [...] - MICRO GENERAL ORDERABLES [facility] ID[facility] LABORATORY [facility] Inf. Diseases Diag. Lab [address] [facility], [address] [place] [address] * (ABNORMAL) Procalcitonin (03/06/2024 12:52 AM CDT) [facility] Procalcitonin 2.44(H) <0.50 ng/mL 03/06/2024 1:41 [...] See Procalcitonin Guidance document for more details. [email or web address] Factors that may affect PCT levels (not [...] - BLOOD ORDERABL ES Performing Organization Address [facility]/ZIP Co de Phone Number [facility] Lab [address] Lab (1st floor, no room number) [address] [place] [address] * Extra Red Top Tube (03/06/2024 12:52 AM CDT) Hold Specimen [facility] 03/06/2024 2:01 AM CDT RH LABORATORY Blood BLOOD SPECIMEN / Unknown Venipuncture / Unknown 03/06/2024 12:52 AM CDT 03/06/2024 12:59 AM CDT Chago Velazquez MD LAB - BLOOD ORDERABL ES Performing Organization Address [facility]/ZIP Co de Phone Number [facility] Lab [address] Lab (1st floor, no room number) [address] * Extra Blue Top Tube (03/06/2024 12:52 AM CDT) Hold Specimen [facility] 03/06/2024 2:01 AM CDT RH LABORATORY Blood BLOOD SPECIMEN / Unknown Venipuncture / Unknown 03/06/2024 12:52 AM CDT 03/06/2024 12:59 AM CDT Chago Velazquez MD LAB - BLOOD ORDERABL ES Performing Organization Address City/[facility]/ZIP Co de Phone Number [facility] [address] Lab (1st floor, no room number) [address] * (ABNORMAL) CBC with platelets and [...] - BLOOD ORDERABL ES Performing Organization Address [facility]/ZIP Co de Phone Number LABORATORY [facility] [address] Lab (1st floor, no room number) [place] [phone] * (ABNORMAL) Lactic acid whole blood with 1x repeat in 2 hr when >2 (03/06/2024 12:52 AM CDT) Lactic Acid, Initial 4.4(HH) 0.7 - 2.0 mmol/L 03/06/2024 1:29 AM CDT LABORATORY Blood BLOOD SPECIMEN / Unknown Venipuncture / Unknown 03/06/2024 12:52 AM CDT 03/06/2024 12:59 AM CDT Chago Velazquez MD LAB - BLOOD ORDERABL ES Performing Organization Address [facility] Co de Phone Number LABORATORY [facility] [address] Lab (1st floor, no room number) [place] [phone] [place] [address] * (ABNORMAL) Comprehensive metabolic panel (03/06/2024 12:52 [...] MD LAB - BLOOD ORDERABL ES LABORATORY [facility] [address] [facility] Lab (1st floor, no room number) [place] [address] documented in this encounter Visit Diagnoses Diagnosis [...] documented as of this encounter Care Teams Rib Puller Relationship Specialty Start Date End Date [facility]- [address] [place] [address] PCP - General 03/06/24 03/08/24 Flo Mckeon MD [facility] [address] [place] [address] PCP - General Family Medicine 03/09/24 documented as of this encounter
--- OUTSIDE RECORDS SUMMARY | 2024-04-09 08:15 | XMS_ITS | Referral Summary ---
Author Organization [facility] Address [address] [place] [address] Care Team Providers Care Mac Artist Name Role Phone Elsewhere, Pcp Primary Care Provider Unavailabl e Source Comments Patient records contain information from all sites at [facility]. For routine questions regarding patient records, call [phone] during business hours, M-F 8:00 AM - 5:00 PM Central Time. Record requests for emergency care only can be directed to [phone] at any time.[facility] Allergies Active Allergy Reactions Criticality Noted Date [...] 09/19/2023 Hypertension Essential Primary 09/19/2023 Corticosteroid Treatment [facility] 05/2023 Paraplegia 09/19/2023 Osteoporosis 06/28/2021 Acute [...] 0.6 oz pur e alcohol) [facility] Utilities Answer Date Recorded In the [...] living situation today? I have a [facility] place to live 10/19/2023 Sex and Gender Information Value Date Recorded Sex Assigned at Not on file Gender Identity Not on file Sexual Orientation Not on file Last Filed Vital Signs Vital Sign Reading Time Taken Comments Blood Pressure 110/68 11/28/2023 8:43 AM PLYCOR OPERATOR Pulse 76 11/28/2023 8:43 AM PLYCOR OPERATOR Temperature 36.7 ??C (98 ??F) 11/28/2023 8:43 AM PLYCOR OPERATOR Respiratory Rate 18 11/28/2023 8:43 AM PLYCOR OPERATOR Oxygen Saturation 95% 11/28/2023 8:43 AM PLYCOR OPERATOR RA Inhaled Oxygen Concentration - - Weight 58.8 kg (129 lb 9.6 oz) 11/28/2023 8:43 A M PLYCOR OPERATOR Height 152 cm (4' 11.84) 10/19/2023 5:00 AM PLYCOR OPERATOR Body Mass Index 25.44 10/19/2023 5:00 AM PLYCOR OPERATOR Plan of Treatment Not on file Procedures Procedure Name Priority Date/Time Associated Diagnosis Comments BASIC METABOLIC PANEL, S/P Routine 11/04/2023 6:52 AM PLYCOR OPERATOR Hypokalemia from Last 3 Months or Most Recently Relevant to Health Maintenance Results * (ABNORMAL) Basic Metabolic Panel (11/04/2023 6:52 AM PLYCOR OPERATOR) Potassium, P 4.1 3.6 - 5.2 mmol/L 11/04/2023 8:14 AM PLYCOR OPERATOR NPRG Sodium, P 142 135 - 145 mmol/L 11/04/2023 8:14 AM PLYCOR OPERATOR NPRG Chloride, P 102 98 - 107 mmol/L 11/04/2023 8:14 AM PLYCOR OPERATOR NPRG Bicarbonate, P 30(H) 22 - 29 mmol/L 11/04/2023 8:14 AM PLYCOR OPERATOR NPRG Anion Gap, P 10 7 - 15 11/04/2023 8:14 AM PLYCOR OPERATOR NPRG BUN (Blood Urea Nitrogen), P 21 6 - 21 mg/dL 11/04/2023 8:14 AM PLYCOR OPERATOR NPRG Creatinine 0.28(L) 0.59 - 1.04 mg/dL 11/04/2023 8:14 AM PLYCOR OPERATOR NPRG Estimated GFR (eGFR) >90 >=60 mL/min/BSA 11/04/2023 8:14 AM PLYCOR OPERATOR NPRG Comment: Estimated GFR calculated using the 2020 CKD_EPI creatinine equation. Calcium, Total, P 9.1 8.8 - 10.2 mg/dL 11/04/2023 8:14 AM PLYCOR OPERATOR NPRG Glucose, P 79 70 - 140 mg/dL 11/04/2023 8:14 AM PLYCOR OPERATOR NPRG Blood (Blood, Venous) 11/04/2023 6:52 AM PLYCOR OPERATOR 11/04/2023 7:43 AM PLYCOR OPERATOR Osiris Otero APRN, C.N.P., R.N. LAB B LOOD ADD-ON [facility] [address] [place] [address], [facility] NPRG [facility] [address] [place] [address] from Last 3 Months or Most Recently Relevant to Health Maintenance Advance Directives For more information, please contact: [phone] Documents on File Type Date Recorded Patient Medical Instrument Cable Fabricator Expl anation Advance Directives 09/19/2023 4:06 PM POLS T/MOLST * DNR/DNI (Latest Code Status on File) Date Activated Date Inactivated Comments 10/19/2023 6:50 PM 10/27/2023 4:16 PM * Full Code Date Activated Date Inactivated Comments 10/19/2023 2:13 AM 10/19/2023 6:50 PM Question Answer Comments Full Code: Discussed Care Teams Mac Artist Relationship Specialty Start Date End Date Elsewhere, Pcp PCP - General Internal Medicine 12/09/23
--- OUTSIDE RECORDS SUMMARY | 2024-04-09 08:15 | XMS_ITS | Encounter Summary ---
Author Organization [facility] Address [address] [place] [address] Care Team Providers Care Cheesemaking Laborer Name Role Phone Elsewhere, Pcp Primary Care Provider Unavailabl e Encounter Details Date Type Department Care Team ([facility] st Contact Info) Description 12/01/2023 Clinical Communication Department of Pulmonary Medicine in [address] [phone] [facility] [address] [place] [address] [phone] Social History Tobacco Use Types Packs/Day Years Used Date Smoking Tobacco: Never Smokeless Tobacco: Never Alcohol Use Standard Drinks/Week Comments Defer 0 (1 standard drink = 0.6 oz pur e alcohol) [facility] Utilities Answer Date Recorded In the past [address] [facility] joblocal, gas, oil, or water [employer] threatened to shut off services in your [...] your living situation today? 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
--- OUTSIDE RECORDS SUMMARY | 2024-04-09 08:15 | XMS_ITS | Continuity of Care Document ---
Author Organization [facility] Address [address] [place] [address] Phone Care Team Providers Care Civil Designer Name Role Phone Susan Guerrero Unavailable Unavail [...] Copied on Encounter [facility], [address], [place], [place], [id number], [place] tel:[phone] [facility] No Information 6 Pandiscio Susan. [facility], [address] [place] [address], [address], [place], [place], [id number], [place]. tel:[phone] Office/Outpat ient Visit,[facility], [address] [facility] [address], [place], [address], [place] tel:[phone] [facility] No Information 4 Pandiscio Susan. [facility], [address], [address], [place], [place], [id number], [place]. tel:[phone] Referring Provider: Freida Doe, [facility] [address] [place], [address]. tel:[phone] Family History Family Member Type Diagnosis Age [...]
--- OUTSIDE RECORDS SUMMARY | 2024-04-09 08:15 | XMS_ITS | Encounter Summary ---
Author Organization [facility] Address [facility] [place] [address] Care Team Providers Care Fish Filleter Name Role Phone [facility]- Primary Care Provider Encounter Details Date Type [...] documented as of this encounter Care Teams Fish Filleter Relationship Specialty Start Date End Date [facility]- [address] [place] [address] PCP - General 03/06/24 03/08/24 documented as of this encounter
--- OUTSIDE RECORDS SUMMARY | 2024-04-09 08:15 | XMS_ITS ---
Author Organization [facility] Address [address] [place] [address] Care Team Providers Care Webbing Inspector Name Role Phone Unavailable Unavailable Unavailable Surgery Details Not on file Complications Check Surgery Details section. Procedure Estimated Blood Loss Check Surgery Details section. Procedure Findings Check Surgery Details section. Procedure Specimens Taken Check Surgery Details section.
--- OUTSIDE RECORDS SUMMARY | 2024-04-09 08:15 | XMS_ITS ---
Author Organization [facility] Address [address] [place] [address] Care Team Providers Care Assembler Knife Name Role Phone Flo Mckeon MD Primary Care Provider [phone] Transitional Care Management Status:Closed (Closed) Start date:03/15/2024 Enrollment date:03/16/2024 End date:03/29/2024 Close reason:Goals met Continued Care and Services Coordination
--- OUTSIDE RECORDS SUMMARY | 2024-04-09 08:15 | XMS_ITS | Encounter Summary ---
Author Organization [facility] Address [address] [place] [address] Care Team Providers Care Sueding Machine Tender Name Role Phone Elsewhere, Pcp Primary Care Provider Unavailabl e Encounter Details Date Type Department Care Team (Latest Contact Info) Description 10/18/2023 Intake [facility] Social History Tobacco Use Types Packs/Day Years Used Date Smoking Tobacco: Never Smokeless Tobacco: Never Alcohol Use Standard Drinks/Week Comments Defer 0 (1 standard drink = 0.6 oz pur e alcohol) [facility] Utilities Answer Date Recorded In the past [address] [facility] electric, gas, oil, or water [employer] threatened to shut off services in your [...] Pending 10/18/2023 10/18/2023 10/18/2023 9 :11 PM SUPERVISOR [employer] COVID19 11/13/2023 11/13/2023 12/03/2023 5:55 AM SUPERVISOR [employer] documented as of this encounter Care Teams Sueding Machine Tender Relationship Specialty Start Date End Date Elsewhere, Pcp PCP - General Internal Medicine 12/09/23 documented as of this encounter
--- OUTSIDE RECORDS SUMMARY | 2024-04-09 08:15 | XMS_ITS | Clinical Summary ---
Author Organization [facility] Address [address] [place] [address] Care Team Providers Care A Auxiliary Name Role Phone Elsewhere, Pcp Primary Care Provider Unavailabl e Source Comments Patient records contain information from all sites at [facility]. For routine questions regarding patient records, call [phone] during business hours, M-F 8:00 AM - 5:00 PM Central Time. Record requests for emergency care only can be directed to [phone] at any time.[facility] [...] 09/19/2023 Hypertension Essential Primary 09/19/2023 Corticosteroid Treatment Care Home [facility] 05/2023 Paraplegia 09/19/2023 Osteoporosis 06/28/2021 [...] your living situation today? [facility] place to live 10/19/2023 Sex and Gender Information Value Date Recorded Sex Assigned at Not on file Gender Identity Not on file Sexual Orientation Not on file Last Filed Vital Signs Vital Sign Reading Time Taken Comments Blood Pressure 110/68 11/28/2023 8:43 AM SPECIAL DAY CLASS TEACHER Pulse 76 11/28/2023 8:43 AM SPECIAL DAY CLASS TEACHER Temperature 36.7 ??C (98 ??F) 11/28/2023 8:43 AM SPECIAL DAY CLASS TEACHER Respiratory Rate 18 11/28/2023 8:43 AM SPECIAL DAY CLASS TEACHER Oxygen Saturation 95% 11/28/2023 8:43 AM SPECIAL DAY CLASS TEACHER RA Inhaled Oxygen Concentration - - Weight 58.8 kg (129 lb 9.6 oz) 11/28/2023 8:43 A M SPECIAL DAY CLASS TEACHER Height 152 cm (4' 11.84) 10/19/2023 5:00 AM SPECIAL DAY CLASS TEACHER Body Mass Index 25.44 10/19/2023 5:00 AM SPECIAL DAY CLASS TEACHER Plan of Treatment Health Maintenance Due Date [...] PANEL, S/P Routine 11/04/2023 6:52 AM SPECIAL DAY CLASS TEACHER Hypokalemia from Last 3 Months or Most Recently Relevant to Health Maintenance Results * (ABNORMAL) Basic Metabolic Panel (11/04/2023 6:52 AM SPECIAL DAY CLASS TEACHER) Potassium, P 4.1 3.6 - 5.2 mmol/L 11/04/2023 8:14 AM SPECIAL DAY CLASS TEACHER NPRG Sodium, P 142 135 - 145 mmol/L 11/04/2023 8:14 AM SPECIAL DAY CLASS TEACHER NPRG Chloride, P 102 98 - 107 mmol/L 11/04/2023 8:14 AM SPECIAL DAY CLASS TEACHER NPRG Bicarbonate, P 30(H) 22 - 29 mmol/L 11/04/2023 8:14 AM SPECIAL DAY CLASS TEACHER NPRG Anion Gap, P 10 7 - 15 11/04/2023 8:14 AM SPECIAL DAY CLASS TEACHER NPRG BUN (Blood Urea Nitrogen), P 21 6 - 21 mg/dL 11/04/2023 8:14 AM SPECIAL DAY CLASS TEACHER NPRG Creatinine 0.28(L) 0.59 - 1.04 mg/dL 11/04/2023 8:14 AM SPECIAL DAY CLASS TEACHER NPRG Estimated GFR (eGFR) >90 >=60 mL/min/BSA 11/04/2023 8:14 AM SPECIAL DAY CLASS TEACHER NPRG Comment: Estimated GFR calculated using the 2020 CKD_EPI creatinine equation. Calcium, Total, P 9.1 8.8 - 10.2 mg/dL 11/04/2023 8:14 AM SPECIAL DAY CLASS TEACHER NPRG Glucose, P 79 70 - 140 mg/dL 11/04/2023 8:14 AM SPECIAL DAY CLASS TEACHER NPRG Blood (Blood, Venous) 11/04/2023 6:52 AM SPECIAL DAY CLASS TEACHER 11/04/2023 7:43 AM SPECIAL DAY CLASS TEACHER Osiris Otero APRN, C.N.P., R.N. [facility] [address] [place] [address], [facility] NPRG [facility] [address] [place] [address] from Last 3 Months or Most Recently Relevant to Health Maintenance Advance Directives For more information, please contact: [phone] Documents on File Type Date Recorded Patient Cushion Maker Hand Expl anation Advance Directives 09/19/2023 4:06 PM POLS T/MOLST * DNR/DNI (Latest Code Status on File) Date Activated Date Inactivated Comments 10/19/2023 6:50 PM 10/27/2023 4:16 PM * Full Code Date Activated Date Inactivated Comments 10/19/2023 2:13 AM 10/19/2023 6:50 PM Question Answer Comments Full Code: Discussed Care Teams A Auxiliary Relationship Specialty Start Date End Date Elsewhere, Pcp PCP - General Internal Medicine 12/09/23
--- OUTSIDE RECORDS SUMMARY | 2024-04-09 08:15 | XMS_ITS | Clinical Summary ---
Author Organization [facility] Address [address], [place] [address] Care Team Providers Care Commuter Pilot Name Role Phone lFo Mckeon MD Primary Care Provider [phone] Source Comments You are receiving this document as you are listed as the primary care provider,follow-up provider, or the patient has been referred to you for consultation.This is in compliance with the Medicare andOhio[facility] Hospitalcaid EHR Incentive Program,which states Providers who transition their patient to another setting of careor provider of care or refers their patient to another provider of care shouldprovide summary care record for each transition of care or referral. Avancen MOD Medications Medication Sig Dispensed Refills Start Date End Date Status acetaminophen (TYLENOL ARTHRITIS) 650 MG controlled release tablet as needed Active furosemide (LASIX) 20 MG tablet Daily 06/11/2021 Active diphenhydrAMINE-APAP 25-500 MG tablet Bedtime as needed A ctive predniSONE (DELTASONE) 5 MG tablet 10 mg daily. 06/11/2021 Active aspirin EC 81 MG enteric coated tablet Daily Act job pseudoephedrine ([id number]) 120 MG 12 hour release tablet Daily [...] Negative (Non Reactive) 06/28/2021 7:52 PM CDT [facility] Comment:Antibodies to HCV no t detected. Does not exclude the possiblity of exposure to HCV. Blood Venipuncture / Unknown 06/28/2021 2:27 PM CDT 06/28/2021 2:28 PM CDT Lorenza Q Black DO LAB_1 [facility] [address] from Last 3 Months or Most Recently Relevant to Health Maintenance Care Teams Commuter Pilot Relationship Specialty Start Date End Date Flo Mckeon MD [address] [place] [address] PCP - General 06/21/21
--- OUTSIDE RECORDS SUMMARY | 2024-04-09 08:15 | XMS_ITS | Clinical Summary ---
Author Organization [email or web address] [facility] Address [place], [place] [address] Care Team Providers Care Evs Manager Name Role Phone Belkis Kallie Stone DOOR LINER HELPER Unavailable [phone] [facility] [place] Unavailable [phone] Flo Mckeon MD Primary Care Provider [facility] Unavailable [phone] Allergies Active Allergy Reactions Criticality Noted Date Comments Piperacillin Anaphylaxis,*Unknown High 09/18/2023 Per SNF Per patient, has tolerated Augmentin Tazobactam Anaphylaxis,*Unknown High 09/18/2023 Per SNF Vancomycin Anaphylaxis High 03/25/2024 Medications Medication Sig Dispensed Refills Start Date End Date Status gabapentin (NEURONTIN) 300 mg capsule Take 300 mg by mouth three times daily. Active metoprolol succinate (TOPROL XL) 100 mg Sustained-Releas e tablet Take 100 mg by mouth once daily. Active predniSONE (DELTASONE) 5 mg tablet Take 10 mg by mouth once daily. Active furosemide (Lasix) 20 mg tablet Take 20 mg by mouth once daily. Active ascorbic acid (ASCOCID ORAL) Take 1 Tablet by mouth once daily. Active zinc sulfate 50 mg zinc (220 mg) capsule Take 220 mg by mouth once daily. Active naproxen (ALEVE) 220 mg tablet Take 220 mg by mouth once daily if needed. Active bisacodyL (Dulcolax, bisacodyl,) 10 mg suppository OK for parent trainer to administer 4 Active oxyCODONE 7.5 mg TbOr Take 7.5 mg by mouth once daily. Active acetaminophen (TylenoL) 325 mg tablet Take 325 mg by mouth every 4 hours if needed. Max acetaminophen dose: 4000mg in 24 hrs. Active doxycycline (VIBRAMYCIN) 100 mg capsule Take 1 capsule by mouth 2 times daily. 28 capsule 0 4 03/24/20 24 Discontinued(P harmacist change per medication history (E-cancel not sent)) ibuprofen (ADVIL; MOTRIN) 200 mg tablet Take 2 tablets by mouth once daily. 0 4 03/24/20 24 Discontinued(P harmacist change per medication history (E-cancel not sent)) predniSONE (DELTASONE) 10 mg tablet Take 1 tablet by mouth once daily with a meal. 0 4 03/24/20 24 Discontinued(P harmacist change per medication history (E-cancel not sent)) mineral oil-hydrophil petrolat (AQUAPHOR) oint Apply topically to affected area(s) once daily. 1 Tube 0 4 03/24/20 24 Discontinued(P harmacist change per medication history (E-cancel not sent)) pseudoephedrine (SUDAFED) 60 mg tablet 60 mg qd 0 4 03/24/20 24 Discontinued(P harmacist change per medication history (E-cancel not sent)) sennosides (SENNA) 8.6 mg tablet Take 1 tablet by mouth once daily. 0 4 03/24/20 24 Discontinued(P harmacist change per medication history (E-cancel not sent)) traZODone (DESYREL) 50 mg tablet Take 1 tablet by mouth at bedtime. 0 4 03/24/20 24 Discontinued(P harmacist change per medication history (E-cancel not sent)) polyethylene glycoL (MIRALAX) 17 gram/dose powder Take 17 g by mouth once daily if needed for Constipation. 0 4 03/24/20 24 Discontinued(P harmacist change per medication history (E-cancel not sent)) oxyCODONE (ROXICODONE) 5 mg capsule 5 mg q3hrs prn 0 4 03/24/20 24 Discontinued(P harmacist change per medication history (E-cancel not sent)) famotidine (PEPCID) 20 mg tablet Take 1 tablet by mouth once daily. 0 4 03/24/20 24 Discontinued(P harmacist change per medication history (E-cancel not sent)) loperamide (Imodium A-D) 2 mg capsule Take 2 mg by mouth each time if needed for Diarrhea. Take 2 capsules (4mg) orally with 1st loose stool, then 1 capsule (2mg) with other loose stools. Max 16 mg in 24 hrs. 04/06/20 Discontinued(P harmacist change per medication history (E-cancel not sent)) multivitamin (DAILY WILL ORAL) Take 1 Tablet by mouth once daily. 03/24/20 Discontinued(P harmacist change per medication history (E-cancel not sent)) oxyCODONE (ROXICODONE) 5 mg immediate release tablet Take 5 mg by mouth every 4 hours if needed for Pain. 04/05/20 Discontinued(P harmacist change per medication history (E-cancel not sent)) omeprazole (PRILOSEC) 20 mg Delayed-Release capsule Take 20 mg by mouth once daily. 03/24/20 Discontinued(P harmacist change per medication history (E-cancel not sent)) triamcinolone (ARISTOCORT; KENALOG) 0.1 % cream Apply topically to affected area(s) 2 times daily if needed. 04/05/20 Discontinued(P harmacist change per medication history (E-cancel not sent)) potassium chloride (K-TAB) 10 mEq extended-release tablet Take 20 mEq by mouth once daily. 03/24/20 Discontinued(P harmacist change per medication history (E-cancel not sent)) lactobacillus rhamnosus, GG, (Culturelle) 10 billion cell capsule Take 1 Capsule by mouth once daily. 03/24/20 Discontinued(P harmacist change per medication history (E-cancel not sent)) fluconazole (DIFLUCAN) 200 mg tabletIndication s:Non-healing non-surgical wound Take 2 Tablets (400 mg) by mouth once daily for 7 days. 14 Tablet 04/07/20 24 Active Problems Problem Noted Date Diagnosed Date [...] Encounters Date Type Department Care Team Description 04/08/2024 9:00 AM CDT Home Care Visit [address] [address] Nimco Palacios EDUCATION GENERAL MANAGER - HOME VISIT 04/07/2024 12:30 PM CDT Home Care Visit [address] [address] Rupinder Canchola RN SN - HOME VISIT 04/06/2024 2:00 PM CDT Patient Outreach [facility] Care Management - Advanced Care Team [address] [place] [phone] Sol Abbott RN Complex Care Management (transition) 04/05/2024 2:00 PM CDT Home Care Visit [address] [address] Rupinder Canchola RN SN - HOME VISIT 04/05/2024 12:30 PM CDT Pharmacist Medication Management [address] [phone] Osmani Espinoza, CelestinoD Pharmacist Medication Management (Initial Comprehensive Medication Review, phone, ccm patient) 04/05/2024 11:30 AM CDT Office Visit [facility] [address] [place] [address] Padmini Walker NP Home Hospital Care (Day 6/) 04/05/2024 1:00 AM CDT Home Care Visit [address] [address] Nimco Palacios EDUCATION GENERAL MANAGER - HOME VISIT 04/05/2024 Patient Outreach [facility] [address] [place] [address] Bernadette Encarnacion RN Home Hospital Care (Biometric Monitoring D/C) 04/05/2024 Travel 04/04/2024 9:30 AM CDT Office Visit [facility] [address] [place] [address] Padmini Walker NP Home Hospital Care (Day 5/) 04/04/2024 Patient Outreach [facility] [address] [place] [address] Sandy Cuellar RN Home Hospital Care (biometrics monitoring- missing afternoon vitals ) 04/03/2024 4:45 PM CDT Home Care Visit [address] [address] Nimco Lal RN SN - PRN LONG VISIT >90 MINS 04/03/2024 9:00 AM CDT Office Visit [facility] [address] [place] [address] Padmini Walker NP Home Hospital Care (Day 4) 04/03/2024 Orders Only [facility] [address] [place] [address] Padmini Walker NP Lab (1. CBC, procalcitonin, CRP (dx: leuko... 04/02/2024 1:30 PM CDT Home Care Visit [address] [place] [address] Rupinder Canchola RN SN - HOME VISIT 04/02/2024 11:00 AM CDT Office Visit [facility] [address] [place] [address] Lisa Skinner MD Home Hospital Care (Day 3 ) 04/02/2024 2:25 AM CDT Home Care Visit [address] [address] Haily Donohue RN SN - WOUND/OSTOMY CHART CONSULT 04/02/2024 Home Care Visit [address] [address] Nimco Palacios EDUCATION GENERAL MANAGER - MISSED VISIT 04/02/2024 Orders Only [facility] [address] [place] [address] Padmini Walker, DOOR LINER HELPER Lab 04/02/2024 Orders Only [address] [address] Padmini Walker, DOOR LINER HELPER Lab 04/02/2024 Home Care Visit [address] [address] Maddi Ann RN CARE COORDINATION 04/01/2024 10:30 AM CDT Office Visit [address] [address] Lisa Skinner MD Home Hospital Care (Day 2) 04/01/2024 9:45 AM CDT Home Care Visit [address] [address] MariaD Oreilly RN SN - OASIS START OF CARE 04/01/2024 Plan of Care Documentation [address] [address] 04/01/2024 Patient Outreach [facility] [address] [place] [address] Donna Mosqueda RN Home Hospital Care (Biometric Monitoring-Missing PM vitals) 04/01/2024 Patient Outreach [facility] Care Management - Advanced Care Team [address] [place] [address] Keyla Steel Complex Care Management (CCM Engagement Outreach) 04/01/2024 Patient Outreach [facility] Care [address] [place] [address] Mariza Rae RN Home Hospital Care (Biometric monitoring: triage call) 04/01/2024 Travel 03/31/2024 2:30 PM CDT Patient Outreach [facility] Plan Coordinator Program [address] [place] [address] Dayanna James EMT Home Hospital Care (Biometric kit home delivery.) 03/31/2024 Patient Outreach [facility] Care [address] [place] [address] [facility], [facility] Care (admission) 03/25/2024 Lab Requisition [facility] [phone] Chad Carrera MD 03/24/2024 3:40 PM CDT - 03/31/2024 1:54 PM CDT Hospital Encounter [facility] [address] [place] [address] [facility] Hospitalists Of Tesfaye Ryan MD Kethireddy, Rajesh Babu, MBBS Pressure injury of buttock, stage 4, unspecified laterality (HC) (Primary Dx); Non-healing non-surgical wound Discharge Disposition: Home Health 03/23/2024 Hospital Encounter [facility] [address] [place] [address] [facility] Hospitalists Of 02/09/2024 Lab Requisition [facility] [phone] Unknown, Doctor from Last 3 Months Social History Tobacco Use Types Packs/Day Years Used Date Smoking Tobacco: Never Assessed Social Connections Answer Date Recorded Frequency of Communication with Friends and Fami ly Not on file 02/03/2022 Financial Resource Strain Answer Date R ecorded Difficulty of Paying Living Expenses 2 04/02/2024 Difficulty of Paying Living Expenses Not on file 04/02/2024 Transportation Needs Answer Date Record ed Lack of Transportation (Medical) 1 04/02/2024 Sex and Gender Information Value Date Recorded Sex Assigned at Not on file Gender Identity Not on file Sexual Orientation Not on file Obstetrics History Last Filed Vital Signs Vital Sign Reading Time Taken Comments Blood Pressure 138/52 04/07/2024 1:27 PM CDT Pulse 62 04/07/2024 1:27 PM CDT Temperature 36.6 ??C (97.9 ??F) 04/07/2024 1 :27 PM CDT Respiratory Rate 18 04/07/2024 1:27 PM CDT Oxygen Saturation 100% 04/07/2024 1:2 7 PM CDT Inhaled Oxygen Concentration - - Weight 64.4 kg (141 lb 15.6 oz) 03/30/2024 6:00 AM CDT Height 152.4 cm (5') 03/29/2024 8:00 PM CDT FV chart 03/06/2024 Body Mass Index 27.73 03/29/2024 8:00 PM CDT Plan of Treatment Upcoming Encounters Date Type Department Care Team (Late st Contact Info) Description 04/09/2024 12:15 PM CDT Home Care Visit [address] [address] Nimco Palacios 04/12/2024 1:30 PM CDT Home Care Visit [address] [address] Rupinder Canchola RN [address] [place] [address] 04/12/2024 2:30 PM CDT Home Care Visit [address] [address] Nimco Palacios 04/14/2024 4:00 AM CDT Home Care Visit [address] [address] Rupinder Canchola RN [address] [place] [address] 04/14/2024 9:00 AM CDT Home Care Visit [address] [address] Nimco Palacios 04/16/2024 4:00 AM CDT Home Care Visit [facility] [address] [place] [address] Rupinder Canchola RN [address] [place] [address] 04/19/2024 1:00 AM CDT Home Care Visit [facility] [address] [place] [address] Nimco Palacios 04/19/2024 4:00 AM CDT Home Care Visit [address] [address] Rupinder Canchola RN [address] [place] [address] 04/20/2024 4:00 AM CDT Home Care Visit [address] [address] Sol Christine RN [address] [place] [address] 04/21/2024 1:00 AM CDT Home Care Visit [facility] [address] [place] [address] Nimco Palacios 04/21/2024 4:00 AM CDT Home Care Visit [address] [address] Rupinder Canchola RN [address] [place] [address] 04/23/2024 1:00 AM CDT Home Care Visit [facility] [address] [place] [address] Nimco Palacios 04/23/2024 4:00 AM CDT Home Care Visit [facility] [address] [place] [address] Rupinder Canchola RN [address] [place] [address] 04/26/2024 1:00 AM CDT Home Care Visit [facility] [address] [place] [address] Nimco Palacios 04/26/2024 4:00 AM CDT Home Care Visit [facility] [address] [place] [address] Rupinder Canchola RN [address] [place] [address] 04/28/2024 1:00 AM CDT Home Care Visit [facility] [address] [place] [address] Nimco Palacios 04/28/2024 4:00 AM CDT Home Care Visit [facility] [address] [place] [address] Rupinder Canchola RN [address] [place] [address] 04/30/2024 1:00 AM CDT Home Care Visit [facility] [address] [place] [address] Nimco Palacios 04/30/2024 4:00 AM CDT Home Care Visit [facility] [address] [place] [address] Rupinder Canchola RN [address] [place] [address] 05/03/2024 1:00 AM CDT Home Care Visit [address] [address] Nimco Palacios 05/03/2024 4:00 AM CDT Home Care Visit [address] [address] Rupinder Canchola RN [address] [place] [address] 05/05/2024 1:00 AM CDT Home Care Visit [address] [address] Nimco Palacios 05/05/2024 4:00 AM CDT Home Care Visit [address] [address] Rupinder Canchola RN [address] [place] [address] 05/07/2024 1:00 AM CDT Home Care Visit [address] [address] Nimco Palacios 05/07/2024 4:00 AM CDT Home Care Visit [address] [address] Rupinder Canchola RN [address] [place] [address] 05/10/2024 1:00 AM CDT Home Care Visit [address] [address] Nimco Palacios 05/10/2024 4:00 AM CDT Home Care Visit [address] [address] Rupinder Canchola, RN [address] [place] [address] 05/12/2024 1:00 AM CDT Home Care Visit [facility] [address] [place] [address] Nimco Palacios 05/12/2024 4:00 AM CDT Home Care Visit [facility] [address] [place] [address] Rupinder Canchola, RN [address] [place] [address] 05/14/2024 1:00 AM CDT Home Care Visit [facility] [address] [place] [address] Nimco Palacios 05/14/2024 4:00 AM CDT Home Care Visit [address] [address] Rupinder Canchola RN [address] [place] [address] 05/17/2024 1:00 AM CDT Home Care Visit [facility] [address] [place] [address] Nimco Palacios 05/17/2024 4:00 AM CDT Home Care Visit [address] [address] Rupinder Canchola RN [address] [place] [address] 05/19/2024 1:00 AM CDT Home Care Visit [facility] [address] [place] [address] Nimco Palacios 05/19/2024 4:00 AM CDT Home Care Visit [address] [address] Rupinder Canchola, RN [address] [place] [address] 05/21/2024 1:00 AM CDT Home Care Visit [facility] [address] [place] [address] Nimco Palacios 05/21/2024 4:00 AM CDT Home Care Visit [address] [address] Rupinder Canchola RN [address] [place] [address] 05/24/2024 1:00 AM CDT Home Care Visit [address] [address] Nimco Palacios 05/24/2024 4:00 AM CDT Home Care Visit [address] [address] Rupinder Canchola RN [address] [place] [address] 05/26/2024 1:00 AM CDT Home Care Visit [address] [address] Nimco Palacios 05/26/2024 4:00 AM CDT [facility] [address] [place] [address] Rupinder Canchola RN [address] [place] [address] 05/28/2024 1:00 AM CDT Home Care Visit [facility] [address] [place] [address] Nimco Palacios 05/28/2024 4:00 AM CDT Home Care Visit [facility] [address] [place] [address] Rupinder Canchola RN [address] [place] [address] Health Maintenance Due Date Last Done Comments [...] 97 DEXA/DXA scan for age 65+ 12/31/2011 Medicare Wellness for age 65+ 12/31/2011 COVID-19 vaccine series ( season) 3 Influenza for age 65+ 06/13/2024 Procedures Procedure Name Priority Date/Time Associated Diagnosis Comments C-REACTIVE PROTEIN STAT 04/03/2024 5: 51 PM CDT Osteomyelitis, unspecified site, unspecified type (HC) Leukocytosis, unspecified type PROCALCITONIN STAT 04/03/2024 5:51 PM CDT Osteomyelitis, unspecified site, unspecified type (HC) Leukocytosis, unspecified type CBC W PLT NO DIFF STAT 04/03/2024 5:5 1 PM CDT Osteomyelitis, unspecified site, unspecified type (HC) Leukocytosis, unspecified type HEMOGLOBIN Routine 04/02/2024 5:47 PM CDT Sepsis secondary to UTI (HC) WHITE BLOOD COUNT Routine 04/02/2024 5:4 7 PM CDT Sepsis secondary to UTI (HC) BASIC METABOLIC PANEL Routine 04/02/2024 4:00 PM CDT Sepsis secondary to UTI (HC) SCAN CORRESP-LABORATORY RESULTS 03/30/2024 1:30 PM CDT SCAN CORRESP-IMAGING 03/30/2024 1:30 PM CDT ECHO TTE COMPLETE WO CONTRAST Routine 03/30/2024 9:45 AM CDT WHITE BLOOD COUNT Early AM 03/30/2024 6:2 3 AM CDT EKG 12 LEAD Routine 03/27/2024 11:51 AM CDT BLOOD CULTURE Today 03/27/2024 6:30 AM CDT WHITE BLOOD COUNT Early AM 03/27/2024 6:2 9 AM CDT BLOOD CULTURE Today 03/26/2024 6:52 AM CDT US VENOUS UPPER EXTREMITY LEFT Routine 03/25/2024 6:58 PM CDT BLOOD CULTURE Today 03/25/2024 2:21 PM CDT CK TOTAL JUNIOR 03/25/2024 7:28 AM CDT GAMMA GT Early AM 03/25/2024 7:28 AM CDT HEPATIC FUNCTION PANEL Early AM 7:28 AM CDT C-REACTIVE PROTEIN Early AM 03/25/2024 7: 28 AM CDT BASIC METABOLIC PANEL Early AM 03/25/2024 7:28 AM CDT CBC W PLT NO DIFF Early AM 03/25/2024 7:2 8 AM CDT US RENAL AND BLADDER COMPLETE Routine 03/24/2024 7:08 PM CDT REFERRAL ID/SUSC,NONURINE Routine 03/21/2024 7:45 PM CDT REFERRAL ID/SUSC,NONURINE Routine 02/06/2024 8:50 AM CDT from Last 3 Months Results * PROCALCITONIN (04/03/2024 5:51 PM CDT) PROCALCITONIN 0.08 ng/ml 04/03/2024 8:20 PM CDT [facility] Blood BLOOD SPECIMEN / Unknown Client Collect / Unknown 04/03/2024 5:51 PM CDT 04/03/2024 7:44 PM CDT [facility] - 04/03/2024 8:20 PM CDT Procalcitonin for initial assessment of Lower Respiratory Tract Infection: Results Interpretation <0.10 ng/mL Antibiotic therapy strongly discoraged. ??Indicates absent of bacterial infection. * 0.10 - 0.25 ng/mL Antibiotic therapy discouraged. ??Bacterial infection unlikely. * 0.26 - 0.50 ng/mL Antibiotic therapy encouraged. ??Bacterial infection possible. >0.50 ng/mL Antibiotic therapy strongly encouraged. ??Suggestive of presence of bacterial infection. *Antibiotic therapy should be considered regardless of PCT result if the patient is clinically unstable, is at high risk for adverse outcome, has strong evidence of bacterial pathogen, or the clinical context indicates antibiotic therapy is warranted. ??If antibiotics are withheld, reassess if symptoms persist/worsen and/or repeat PCT measurement within 6-24 hours. ? In order to assess treatment success and to support a decision to discontinue antibiotic therapy, follow up samples should be tested once every 1-2 days, based upon physician discretion taking into account patient's evolution and progress. Procalcitonin for initial assessment of severe sepsis risk: Results Interpretation <0.5 ng/ml A PCT level below 0.5 ng/ml on the first day of ICU admission is associated with a low risk for progression to severe sepsis and/or septic shock. > 2.0 ng/mL A PCT level above 2.0 ng/mL on the first day of ICU admission is associated with a high risk for progression to severe sepsis and/or septic shock. Note: Concentrations < 0.5 ng/mL do not exclude an infection, on account of localized infections (without systemic signs) which can be associated with such low concentrations, or a systemic infection in its initial stages(< 6 hours). Furthermore, increased procalcitonin can occur without infection. PCT concentrations between 0.5 and 2.0 ng/mL should be interpreted taking into account the patient's history. It is recommended to retest PCT within 6-24 hours if any concentrations < 2 ng/mL are obtained. Padmini Walker NP SEND OUTS [facility] SENDOUT INTERNAL [facility] [id number] [place] [address] * (ABNORMAL) CBC W PLT NO DIFF (04/03/2024 5:51 PM CDT) Only the most recent of2 resultswithin the time period is included. WHITE BLOOD COUNT 16.0(H) 4.5 - 11.0 thou/cu mm 04/03/2024 7:53 PM CDT [facility] RED BLOOD COUNT 4.05 4.00 - 5.20 mil/cu mm 04/03/2024 7:53 PM CDT [facility] HEMOGLOBIN 10.6(L) 12.0 - 16.0 g/dL 04/03/2024 7:53 PM CDT [facility] HEMATOCRIT 35.0 33.0 - 51.0 % 04/03/2024 7:53 PM CDT [facility] MCV 86 80 - 100 fL 04/03/2024 7:53 PM CDT [facility] MCH 26.2 26.0 - 34.0 pg 04/03/2024 7:53 PM CDT [facility] MCHC 30.3(L) 32.0 - 36.0 g/dL 04/03/2024 7:53 PM CDT [facility] RDW 17.5(H) 11.5 - 15.5 % 04/03/2024 7:53 PM CDT [facility] PLATELET COUNT 381 140 - 440 thou/cu mm 04/03/2024 7:53 PM CDT [facility] MPV 10.8 6.5 - 11.0 fL 04/03/2024 7:53 PM CDT [facility] NRBC 0.0 % 04/03/2024 7:53 PM CDT [facility] ABS NRBC 0.0 thou /cu mm 04/03/2024 7:53 PM CDT [facility] Blood BLOOD SPECIMEN / Unknown Client Collect / Unknown 04/03/2024 5:51 PM CDT 04/03/2024 7:44 PM CDT Padmini Walker NP HEMATOLOGY Performing Organization Address City/[facility]/ZIP Co de Phone Number [facility] SENDOUT INTERNAL ZIP [phone] [place] [phone] * (ABNORMAL) C-REACTIVE PROTEIN (04/03/2024 5:51 PM CDT) Only the most recent of2 resultswithin the time period is included. C-REACTIVE PROTEIN 2.6(H) <0.5 mg/dL 04/03/2024 8:18 PM CDT [facility] Blood BLOOD SPECIMEN / Unknown Client Collect / Unknown 04/03/2024 5:51 PM CDT 04/03/2024 7:44 PM CDT Padmini Walker NP CHEMISTRY Performing Organization Address City/[facility]/ZIP Co de Phone Number [facility] SENDOUT INTERNAL ZIP [phone] [place] [phone] * (ABNORMAL) WHITE BLOOD COUNT (04/02/2024 5:47 PM CDT) Only the most recent of3 resultswithin the time period is included. WHITE BLOOD COUNT 20.9(H) 4.5 - 11.0 thou/cu mm 04/02/2024 5:58 PM CDT [facility] NRBC 0.0 % 04/02/2024 5:58 PM CDT [facility] ABS NRBC 0.0 thou /cu mm 04/02/2024 5:58 PM CDT [facility] Blood BLOOD SPECIMEN / Unknown Non-Lab Venipuncture / Unknown 04/02/2024 5:47 PM CDT 04/02/2024 5:48 PM CDT Padmini Walker NP HEMATOLOGY Performing Organization Address City/[facility]/ZIP Co de Phone Number [facility] [address] [place] [phone], * (ABNORMAL) HEMOGLOBIN (04/02/2024 5:47 PM CDT) HEMOGLOBIN 11.7(L) 12.0 - 16.0 g/dL 04/02/2024 5:58 PM CDT [facility] MCV 90 80 - 100 fL 04/02/2024 5:58 PM CDT [facility] Blood BLOOD SPECIMEN / Unknown Non-Lab Venipuncture / Unknown 04/02/2024 5:47 PM CDT 04/02/2024 5:48 PM CDT Padmini Walker NP HEMATOLOGY Performing Organization Address [facility] Co de Phone Number [facility] [address] [place] [address], [place] [phone] * (ABNORMAL) BASIC METABOLIC PANEL (04/02/2024 4:00 PM CDT) Only the most recent of2 resultswithin the time period is included. SODIUM 145 136 - 145 mmol/L 04/02/2024 6:18 PM CDT [facility] POTASSIUM 4.4 3.5 - 5.1 mmol/L 04/02/2024 6:18 PM CDT [facility] CHLORIDE 97(L) 98 - 107 mmol/L 04/02/2024 6:18 PM CDT [facility] CO2,TOTAL 36(H) 22 - 29 mmol/L 04/02/2024 6:18 PM CDT [facility] ANION GAP 12 5 - 18 04/02/2024 6:18 PM CDT [facility] GLUCOSE 114(H) 70 - 99 mg/dL 04/02/2024 6:18 PM CDT [facility] CALCIUM 9.2 8.8 - 10.2 mg/dL 04/02/2024 6:18 PM CDT [facility] BUN 17 8 - 23 mg/dL 04/02/2024 6:18 PM CDT [facility] CREATININE 0.35(L) 0.50 - 0.90 mg/dL 04/02/2024 6:18 PM CDT [facility] BUN/CREAT RATIO 49(H) 10 - 20 6:18 PM CDT [facility] eGFR >90 >90 mL/min/1.7 3m2 04/02/2024 6:18 PM CDT [facility] Comment:As of 2021, eG FR is calculated by the CKD-EPI creatinine equation without race adjustment. ??eGFR can be influenced by muscle mass, exercise, and diet. ??The reported eGFR is an estimation only and is only applicable if the renal function is stable. Blood BLOOD SPECIMEN / Unknown Non-Lab Venipuncture / Unknown 04/02/2024 4:00 PM CDT 04/02/2024 5:48 PM CDT Padmini Walker NP CHEMISTRY [facility] [place] [address], * SCAN CORRESP-LABORATORY RESULTS (03/30/2024 1:30 PM CDT) Narrative 03/30/2024 1:30 PM CDT Ordered by an unspecified provider. Other Clinical Staff OTHER * SCAN CORRESP-IMAGING (03/30/2024 1:30 PM CDT) Anatomical Region Laterality Modality Other Narrative 03/30/2024 1:30 PM CDT Ordered by an unspecified provider. Other Clinical Staff OTHER * ECHO TTE COMPLETE WO CONTRAST (03/30/2024 9:45 AM CDT) AORTIC VALVE MEAN PG 8 mmHg EJECTION FRACTION 65 % PEAK TR VELOCITY 3.5 m/s LVEDD 3.7 cm EJECTION FRACTION 65 - 70% Anatomical Region Laterality Modality Ultrasound 03/30/2024 9:03 AM CDT Narrative 03/30/2024 10:45 AM CDT ECHOCARDIOGRAM DAYNA MAJOR ? Accession#: ?? [id number] : ?1945 78 years Study Date: ?? 03/30/2024 9:03:40 AM Gender: F ?BP: ? 110/49 mmHg Height: 152.00 cm ?BSA: ?1.61 m? ? ? Weight: 64.00 kg ? Tech: ? HR-TRVL ? Referring MD: YIFAN RAINEY Site: ? [facility] Reading Location: AN IP Patient Location: Inpatient. Procedure: 2D. Indication for study: Candidemia Cardiac Rhythm: Regular.Study quality: Technically limited. Final Impressions: 1. Technically limited exam. No definite evidence of endocarditis. If clinically appropriate, a NEEL may provide more information. 2. Normal left ventricular size, mildly increased wall thickness, normal global systolic function, calculated EF of 65 %. 3. The aortic valve is sclerotic and trileaflet, no stenosis and no regurgitation. 4. The mitral valve is sclerotic, mild mitral regurgitation. 5. Mildly increased estimated pulmonary pressures by tricuspid regurgitation velocity and right atrial pressure (49 mmHg plus RAP). Chamber Sizes and Function Normal left ventricular size, mildly increased wall thickness, normal global systolic function, calculated EF of 65 %. No definite resting regional wall motion abnormality seen. Left atrial size is mildly enlarged. Right ventricular cavity size is normal, global systolic RV function is normal. The right atrium is normal. The pulmonary artery is of normal size and origin. The sinus of Valsalva is normal sized. The ascending aorta is normal sized. Valves, RV Pressures and Diastolic Function The aortic valve is sclerotic and trileaflet, no stenosis and no regurgitation. The mitral valve is sclerotic, mild mitral regurgitation. Mild mitral annular calcification is present. Spectral Doppler shows Grade 2 pattern of LV diastolic filling. The tricuspid valve is normal in structure. Tricuspid regurgitation is mild regurgitation. The tricuspid regurgitant velocity is 3.5 m/s, the estimated right ventricular systolic pressure is 49 mmHg plus right atrial pressure. There is mildly increased estimated pulmonary pressure by tricuspid regurgitation velocity and right atrial pressure. The pulmonic valve is normal. No pulmonary regurgitation. Masses, Effusion, Shunts There is no pericardial effusion. The inferior vena cava is normal sized, respiratory size variation greater than 50%. No left to right shunting was detected by limited color flow Doppler interrogation of the interatrial septum. MEASUREMENTS AND CALCULATIONS 2-D Measurements and LV Function: LVID (d) 3.7 cm Planimetered EF 65 % LVID (s) 2.0 cm LV FS% (2D) ? 46 % IVS (d) ??1.2 cm LVOT diameter ?? 2.1 cm LVPW (d) 1.1 cm HR ?56 bpm Ao Sinus 2.6 cm LA Vol index ?28 ml/m2 Asc Ao ?? 2.8 cm LA ? 3.0 cm Diastology: Mitral ?Tissue Doppler E Peak 1.1 m/s ??e', Septum ? 0.06 m/s A Peak 1.1 m/s ??e', Lateral ?0.03 m/s E/A ?1.0 ?E/e' Average ?? 23.94 DT ? 214 msec Aortic Valve: Vmax ? 2.0 m/s ??MELITON (V) ?? 1.96 cm? ? ? VTI ?0.44 m ?? MELITON (I) ?? 1.94 cm? ? ? LVOT V max 1.1 m/s ??Max PG ?15 mmHg LVOT VTI ?? 0.25 m ?? Mean PG ?? 8 mmHg SV ? 85 ml ?Dim Index 0.56 SV index ?? 53 ml/m? ? ? CO ?4.8 l/min ?CI ?3.0 l/min/m? ? ? Mitral Valve: MVA ? 3.5 cm? ? ? MV P 1/2 ??62 msec MV Mean G 2 mmHg Tricuspid Valve and estimated PA pressures: TR Vmax 3.5 m/s TAPSE 1.6 cm TR maxG 49 mmHg Pulmonic Valve: PV Vmax 0.9 m/s . This study was interpreted by an [facility] accredited facility. ??Final ?? 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 ? ? Weight: 64.00 kg Tech: HR-TRVL Referring MD: YIFAN RIANEY Site: [facility] Reading Location: [facility] Patient Location: Inpatient. Procedure: 2D. Indication for study: Candidemia Cardiac Rhythm: Regular.Study quality: Technically limited. Final Impressions: 1. Technically limited exam. No definite evidence of endocarditis. Ifclinically appropriate, a NEEL may provide more information. 2. Normal left ventricular size, mildly increased wall thickness, normalglobal systolic function, calculated EF of 65 %. 3. The aortic valve is sclerotic and trileaflet, no stenosis and noregurgitation. 4. The mitral valve is sclerotic, mild mitral regurgitation. 5. Mildly increased estimated pulmonary pressures by tricuspidregurgitation velocity and right atrial pressure (49 mmHg plus RAP). Chamber Sizes and Function Normal left ventricular size, mildly increased wall thickness, normalglobal systolic function, calculated EF of 65 %. No definite restingregional wall motion abnormality seen. Left atrial size is mildlyenlarged. Right ventricular cavity size is normal, global systolic RVfunction is normal. The right atrium is normal. The pulmonary artery is ofnormal size and origin. The sinus of Valsalva is normal sized. Theascending aorta is normal sized. Valves, RV Pressures and Diastolic Function The aortic valve is sclerotic and trileaflet, no stenosis and noregurgitation. The mitral valve is sclerotic, mild mitral regurgitation.Mild mitral annular calcification is present. Spectral Doppler shows Grade2 pattern of LV diastolic filling. The tricuspid valve is normal instructure. Tricuspid regurgitation is mild regurgitation. The tricuspidregurgitant velocity is 3.5 m/s, the estimated right ventricular systolicpressure is 49 mmHg plus right atrial pressure. There is mildly increasedestimated pulmonary pressure by tricuspid regurgitation velocity and rightatrial pressure. The pulmonic valve is normal. No pulmonaryregurgitation. Masses, Effusion, Shunts There is no pericardial effusion. The inferior vena cava is normal sized,respiratory size variation greater than 50%. No left to right shunting wasdetected by limited color flow Doppler interrogation of the interatrialseptum. MEASUREMENTS AND CALCULATIONS 2-D Measurements and LV Function: LVID (d) 3.7 cm Planimetered EF 65 % LVID (s) 2.0 cm LV FS% (2D) 46 % IVS (d) 1.2 cm LVOT diameter 2.1 cm LVPW (d) 1.1 cm HR 56 bpm Ao Sinus 2.6 cm LA Vol index 28 ml/m2 Asc Ao 2.8 cm LA 3.0 cm Diastology: Mitral Tissue Doppler E Peak 1.1 m/s e', Septum 0.06 m/s A Peak 1.1 m/s e', Lateral 0.03 m/s E/A 1.0 E/e' Average 23.94 DT 214 msec Aortic Valve: Vmax 2.0 m/s MELITON (V) 1.96 cm? ? ? VTI 0.44 m MELITON (I) 1.94 cm? ? ? LVOT V max 1.1 m/s Max PG 15 mmHg LVOT VTI 0.25 m Mean PG 8 mmHg SV 85 ml Dim Index 0.56 SV index 53 ml/m? ? ? CO 4.8 l/min CI 3.0 l/min/m? ? ? Mitral Valve: MVA 3.5 cm? ? ? MV P 1/2 62 msec MV Mean G 2 mmHg Tricuspid Valve and estimated PA pressures: TR Vmax 3.5 m/s TAPSE 1.6 cm TR maxG 49 mmHg Pulmonic Valve: PV Vmax 0.9 m/s . This study was interpreted by an [facility] accredited facility. 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 CULTURE No Growth. 03/31/2024 9:14 AM CDT [facility] Blood BLOOD SPECIMEN / Unknown Butterfly / Unknown 03/27/2024 6:30 AM CDT 03/27/2024 6:49 AM CDT Yifan PARRISH [facility]OLOGY [facility] [address] [place] [address], [place] * US VENOUS UPPER EXTREMITY LEFT (03/25/2024 [...] For Patients: As a result of the 21st Century Cures Act, medical imagingexams and procedure reports [...] MD @ 03/26/2024 12:47:50 AM (Electronically Signed) Yifan PARRISH US * (ABNORMAL) GAMMA GT (03/25/2024 7:28 AM CDT) GAMMA GT 216(H) 5 - 36 IU/L 03/25/2024 8:32 AM CDT [facility] Blood BLOOD SPECIMEN / Unknown Butterfly / Unknown 03/25/2024 7:28 AM CDT 03/25/2024 7:41 AM CDT Tesfaye Ryan MD CHEMISTRY Performing Organization Address City/[facility]/ZIP Co de Phone Number [facility] [address] [place] [address], * (ABNORMAL) CK TOTAL (03/25/2024 7:28 AM CDT) CK,TOTAL 16(L) 26 - 192 IU/L 03/25/2024 9:01 AM CDT [facility] Blood BLOOD SPECIMEN / Unknown Butterfly / Unknown 03/25/2024 7:28 AM CDT 03/25/2024 7:41 AM CDT Jonatan Amezquita MD CHEMISTRY [facility] [address] [place] [id number], [place] * (ABNORMAL) Hepatic function panel AM (03/25/2024 7:28 AM CDT) ALBUMIN 2.8(L) 4.0 - 4.9 g/dL 03/25/2024 8:12 AM CDT [facility] PROTEIN,TOTAL 4.7(L) 6.0 - 8.0 g/dL 03/25/2024 8:12 AM CDT [facility] BILIRUBIN,TOTAL 0.2 0.0 - 1.2 mg/dL 03/25/2024 8:12 AM CDT [facility] BILIRUBIN,DIRECT <0.2 0.0 - 0.3 mg/dL 03/25/2024 8:12 AM CDT [facility] BILIRUBIN,INDIRE CT 03/25/2024 8:12 AM CDT [facility] Comment:Unable to calculate, Direct Bili <0.2 ALK PHOSPHATASE 315(H) 35 - 104 IU/L 03/25/2024 8:12 AM CDT [facility] ALT (SGPT) 24 10 - 35 IU/L 03/25/2024 8:12 AM CDT [facility] AST (SGOT) 23 10 - 35 IU/L 03/25/2024 8:12 AM CDT [facility] Blood BLOOD SPECIMEN / Unknown Butterfly / Unknown 03/25/2024 7:28 AM CDT 03/25/2024 7:41 AM CDT Tesfaye Ryan MD CHEMISTRY [facility] [address] [place] [id number], [place] * US Renal today (03/24/2024 7:08 PM [...] Ryan MD US * (ABNORMAL) REFERRAL ID/SUSC,NONURINE (03/21/2024 7:45 PM CDT) Only the most recent of2 resultswithin the time period is included. CULTURE RESULT(A) 03/27/2024 3:36 PM CDT [facility] [employer] [facility] CULTURE Lucy albicans 03/27/2024 3:36 PM CDT [facility] Other BLOOD SPECIMEN / Unknown Client Collect / Unknown 03/21/2024 7:45 PM CDT 03/25/2024 2:43 PM CDT Narrative Organism Antibiotic Method Susceptibility Lucy albicans FLUCONAZOLE <=0.5: S Lucy albicans VORICONAZOLE <=0.12: S Lucy albicans CASPOFUNGIN <=0.12: S Lucy albicans MICAFUNGIN <=0.06: S Chad Carrera MD [facility] [employer] [facility] [address] [place] [id number], from Last 3 Months Additional Health Concerns Infection Onset Date Last Indicated MRSA Clearance Comment:Hx MRSA 12/02/13 @ [facility] 03/25/2024 03/25/2024 Advance Directives * DNR (Latest Code Status on File) Date Activated Date Inactivated Comments 03/24/2024 5:28 PM 03/31/2024 4:05 PM Question Answer Comments Code Status Discussion: Reviewed Preferences Care Teams Evs Manager Relationship Specialty Start Date End Date Flo Mckeon MD [address] [place] [phone] PCP - General Family Practice 10/04/21 Kallie Tamayo NP [address] [phone] Family Practice 01/17/14 [facility] [place] [address] [address] 01/29/14 [facility] [address] [place] [address] 03/30/24
== END 2024-04-09 08:12 | disposition home or self-care (01) ==
LOC: WOUND 08:12
PROVIDERS: PCP Family Medicine; Visit Provider Nurse Practitioner Family
DX: M86.68 Other chronic osteomyelitis, other site (principal); L89.314 Pressure ulcer of right buttock, stage 4; L89.154 Pressure ulcer of sacral region, stage 4; G82.20 Paraplegia, unspecified; Z99.3 Dependence on wheelchair
CPT/HCPCS: 11042; G0463

== ENCOUNTER 2024-07-03 17:27 | Emergency (ER) | payer MEDICARE, SELFPAY ==
[2024-07-03 17:32] VITALS: BP 148/67; PULSE 78; RESP 18; TEMP 36.2; O2SAT 96; BMI 29.3
--- NOTE | 2024-07-03 17:35 | ED.FEMALEGU ---
HPI - Female Genitourinary General Time Seen by Provider: 17:35 Date Seen: 07/03/24 Chief complaint: Urogenital Problems, Female Stated complaint: clogged catheter Time Seen by Provider: 07/03/24 17:29 Source: patient, EMS and RN notes reviewed Mode of arrival: EMS Limitations: physical limitation History of Present Illness HPI Narrative: This 78-year-old female is brought in by ambulance for nondraining Cristobal catheter. Patient is bed bound paraplegic. She notes that she has not had any drainage into her urinary bag since 5:30 a.m. this morning. She is starting to feel some abdominal discomfort but there has been no fevers or chills. She does not feel ill, has had no symptoms of urinary tract infection. She notes that she was in a rehab a few weeks ago and similar situation where her Cristobal catheter plugged up. She states they ended up having to change it. When I reviewed with her that we could try to irrigate and see if it would function, she requested that we simply change the catheter out. She stated she would feel much more comfortable if we change the catheter. Related Data Home Medications ?Medication ?Instructions ?Recorded ?Confirmed multivitamin with folic acid 400 1 tab PO DAILY 03/22/24 03/22/24 mcg tablet (Daily-Charles (with folic acid)) Previous Rx's ?Medication ?Instructions ?Recorded Lactobacillus acidophilus 0.5 mg 50 mmu cells PO TID #90 tabs 12/13/23 (100 million cell) tablet acetaminophen 500 mg capsule 1,000 mg (2 x 500 mg) PO TID PRN 12/13/23 #100 caps ascorbic acid (vitamin C) 500 mg 500 mg PO DAILY #30 tabs 12/13/23 tablet (Vitamin C) bisacodyl 10 mg rectal suppository 10 mg AL DAILY PRN constipation 12/13/23 #30 ea furosemide 40 mg tablet 40 mg PO QAM #30 tabs 12/13/23 gabapentin 300 mg capsule 300 mg PO TID #90 caps 12/13/23 loperamide 2 mg capsule 2 mg PO TID PRN loose stool #30 12/13/23 caps miconazole nitrate 2 % topical 1 applic topical BID PRN #85 grams 12/13/23 powder potassium chloride 10 mEq 20 meq (2 x 10 mEq) PO BID #120 12/13/23 tablet,extended release tabs prednisone 5 mg tablet 10 mg (2 x 5 mg) PO DAILY #60 tabs 12/13/23 zinc sulfate 50 mg zinc (220 mg) 50 mg PO DAILY #30 caps 12/13/23 capsule metoprolol succinate 100 mg 100 mg PO DAILY #90 tabs 04/05/24 tablet,extended release 24 hr oxycodone 5 mg tablet 7.5 mg (1.5 x 5 mg) PO Q4H PRN 04/20/24 pain #180 tabs cefuroxime axetil 500 mg tablet 500 mg PO BID #19 tabs 07/03/24 Allergies Allergy/AdvReac Type Severity Reaction Status Date / Time piperacillin Allergy Intermediate Rash Verified 01/16/24 05:11 sulfamethoxazole Allergy Intermediate Hives Verified 01/23/24 10:48 [From Bactrim] tazobactam Allergy Intermediate Rash Verified 01/16/24 05:11 trimethoprim [From Bactrim] Allergy Intermediate Hives Verified 01/23/24 10:48 vancomycin Allergy Unknown Anaphylactic Verified 01/16/24 05:11 shock with this medication. Also care home demario Review of Systems Narrative: As per HPI. [facility] Medical History (Updated 07/03/24 @ 17:52 by Mechelle Quinones MD) HTN (hypertension) ?I10 - Essential (primary) hypertension (ICD-10) Health care directive on file ?Z78.9 - Other specified health status (ICD-10) Pressure ulcer of coccygeal region, stage 4 ?L89.154 - Pressure ulcer of sacral region, stage 4 (ICD-10) UTI (urinary tract infection) ?N39.0 - Urinary tract infection, site not specified (ICD-10) Hypoalbuminemia due to protein-calorie malnutrition ?E88.09 - Other disorders of plasma-protein metabolism, not elsewhere classified (ICD-10) ?E46 - Unspecified protein-calorie malnutrition (ICD-10) 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, stage 4 ?L89.44 - Pressure ulcer of contiguous site of back, buttock and hip, stage 4 (ICD-10) Pressure ulcer ?L89.90 - Pressure ulcer of unspecified site, unspecified stage (ICD-10) Osteomyelitis ?M86.9 - Osteomyelitis, unspecified (ICD-10) Anemia ?D64.9 - Anemia, unspecified (ICD-10) Diarrhea ?R19.7 - Diarrhea, unspecified (ICD-10) Intravenous infiltration ?T80.1XXA - Vascular complications following infusion, transfusion and therapeutic injection, initial encounter (ICD-10) Neurogenic bladder ?N31.9 - Neuromuscular dysfunction of bladder, unspecified (ICD-10) Chronic, continuous use of opioids ?F11.90 - Opioid use, unspecified, uncomplicated (ICD-10) Rheumatoid arthritis ?M06.9 - Rheumatoid arthritis, unspecified (ICD-10) Cristobal catheter in place ?Z97.8 - Presence of other specified devices (ICD-10) Sleep apnea ?G47.30 - Sleep apnea, unspecified (ICD-10) Paraplegia ?G82.20 - Paraplegia, unspecified (ICD-10) Acute on chronic anemia ?D64.9 - Anemia, unspecified (ICD-10) Paraplegia ?G82.20 - Paraplegia, unspecified (ICD-10) Chronic pain ?G89.29 - Other chronic pain (ICD-10) Tubular adenoma of colon ?D12.6 - Benign neoplasm of colon, unspecified (ICD-10) 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 - Acute transverse myelitis in demyelinating disease of central nervous system (ICD-10) Septic shock ?A41.9 - Sepsis, unspecified organism (ICD-10) ?R65.21 - Severe sepsis with septic shock (ICD-10) Recurrent urinary tract infection ?N39.0 - Urinary tract infection, site not specified (ICD-10) Osteoporosis ?M81.0 - Age-related osteoporosis without current pathological fracture (ICD-10) History of methicillin resistant Staphylococcus aureus infection ?Z86.14 - Personal history of Methicillin resistant Staphylococcus aureus infection (ICD-10) Surgical History Status post debridement ?Z98.890 - Other specified postprocedural states (ICD-10) Social History Narrative: Mary has recently been living at [facility], daughter Elvi (MDM if needed) is hoping to bring her home with multimedia project manager caregiving. has cognitive impairment. At this time (12/08/23), she is requesting DNR/DNI status. Nonsmoker, no ETOH use. What is your current living situation?: I presently have a place to live Problems where you live: no known problems Problems where you live details: n/a In the past 12 months, utilities in danger of being shut off: no In past 12 months, lack of transportation kept you from medical appts, meetings, work, or getting things needed for daily living: no In the past 12 mos, have been you worried that your food would run out before you had money to buy more?: never true In the past 12 mos, the food you bought just didn't last and you didn't have money to buy more?: never true Highest level of school completed/degree received: Bachelor's degree Smoking Status: Never smoker Do you use any of these nicotine containing products: None Second hand tobacco smoke exposure: No How often do you have a drink containing alcohol: never How often do you have six or more drinks on one occasion: Never AUDIT-C Alcohol total score: 0 Non-prescribed substance use: denies use Caffeine: Yes (1 cup coffee/day) How often does anyone, including family, friends and others, physically hurt you: never How often does anyone, including family, friends and others, insult or talk down to you: never How often does anyone, including family, friends and others, threaten you with harm: never How often does anyone, including family, friends and others, scream or curse at you: never Little interest or pleasure in doing things: several days Feeling down, depressed, or hopeless: several days service: No Exam Const: Vital Signs, click to edit/add: Vital Signs - 24 hr 07/03/24 17:32 Temperature 97.1 F L Pulse Rate [Right Pulse Oximeter] 78 Respiratory Rate 18 Blood Pressure [Ri ght Upper Arm] 148/67 H Pulse Oximetry 96 Oxygen Delivery Me thod Room Air This 78-year-old female is alert, interactive, no apparent distress. CV regular rate and rhythm, no murmur. Abdomen seems mildly distended, she has some discomfort in the lower abdominal area, seems to have distended bladder. Lower extremities with flaccid paralysis. Documenting provider has reviewed patient's vital signs: yes Course Course ED Course: Have requested that nursing staff assist with catheter change. They are aware that we will not do an attempt at irrigation. Reevaluation(s) Time of Reevaluation #1: 18:43 Reevaluation #1: Per patient did request that nursing staff obtain urinalysis. Did review that I would not recommend this but patient did want it. She does have positive nitrates, she certainly could be colonized. The blocked Cristobal catheter could be early infection however. Given the urinalysis results, do feel compelled that we need to treat. I think she will be fine with oral antibiotics. Did look at her past record, I think a higher level cephalosporin maybe choice of antibiotic. Will give her dose of cefdinir here and then send a prescription in. She understands we may need to alter based on urinalysis outcome. Due to limitations in antibiotic choices and pharmacies being closed at this time, had to settle for an oral dose of Ceftin here. Thus will continue with a prescription of Ceftin. Patient feels much better with drainage of almost 1300 mL out of her bladder with changing of the Cristobal catheter. Vital Signs Vital signs: Initial Vital Signs Temperature 97.1 F L 07/03/24 17:32 Temperature Source Temporal Artery Scan 07/03/24 17:32 Pulse Rate 78 07/03/24 17:32 Respiratory Rate 18 07/03/24 17:32 Blood Pressure 148/67 H 07/03/24 17:32 Blood Pressure Mean 94 07/03/24 17:32 Blood Pressure Position Sitting 07/03/24 17:32 Pulse Oximetry 96 07/03/24 17:32 Oxygen Delivery Method Room Air 07/03/24 17:32 Vital Signs Temperature 97.1 F L 07/03/24 17:32 Pulse Rate 78 07/03/24 17:32 Respiratory Rate 18 07/03/24 17:32 Blood Pressure 148/67 H 07/03/24 17:32 Pulse Oximetry 96 07/03/24 17:32 Oxygen Delivery Method Room Air 07/03/24 17:32 Temperature 97.1 F L 07/03/24 17:32 Pulse Rate 78 07/03/24 17:32 Respiratory Rate 18 07/03/24 17:32 Blood Pressure 148/67 H 07/03/24 17:32 Pulse Oximetry 96 07/03/24 17:32 Oxygen Delivery Method Room Air 07/03/24 17:32 Medications Administered Medications: Discontinued Medications Generic Name Dose Route Start Last Admin Trade Name Freq PRN Reason Stop Dose Admin Cefuroxime Axetil 500 mg 07/03/24 18:48 07/03/24 19:15 Cefuroxime Axetil 500 Mg Tablet PO 07/03/24 18:49 500 mg ONCE ONE Administration MDM - Female Genitourinary Lab Data Attestation: I reviewed the patient's lab results. Labs: Lab Results 07/03/24 Range/Units 18:12 Urine Color Yellow (Yellow) Urine Appearance Cloudy A (Clear) Urine pH 5.0 (5.0-8.5) Ur Specific [place] 1.015 (1.000-1.030) Urine Protein Negative (Negative) Urine Glucose (UA) Negative (Negative) Urine Ketones Negative (Negative) Urine Blood Trace-intact A (Negative) Urine Nitrite Positive A (Negative) Urine Bilirubin Negative (Negative) Urine Urobilinogen 0.2 (0.2-1.0) Ur Leukocyte Esterase 3+ A (Negative) Urine RBC 10-25 A (0-2) Urine WBC >100 A (0-5) Ur Squamous Epith Cells Few (None-Few) Urine Bacteria Many A (None) Discharge Plan Discharge Clinical Impression: Cristobal catheter problem Patient Disposition: Home, Self-Care Condition: Stable Instructions: Cristobal Catheter Placement and Care (ED) Additional Instructions: Continue with routine Cristobal catheter care as per Urology recommendations. Seek re-evaluation if the catheter becomes obstructed, there is concern for infection. Prescriptions: New cefuroxime axetil 500 mg tablet 500 mg PO BID Qty: 19 0RF No Action bisacodyl 10 mg suppository 10 mg AL DAILY PRN (Reason: constipation) Qty: 30 0RF zinc sulfate 50 mg zinc (220 mg) capsule 50 mg PO DAILY Qty: 30 0RF ascorbic acid (vitamin C) [Vitamin C] 500 mg tablet 500 mg PO DAILY Qty: 30 0RF gabapentin 300 mg capsule 300 mg PO TID Qty: 90 0RF prednisone 5 mg tablet 10 mg PO DAILY Qty: 60 0RF furosemide 40 mg tablet 40 mg PO QAM Qty: 30 0RF Lactobacillus acidophilus 0.5 mg (100 million cell) tablet 50 mmu cells PO TID Qty: 90 0RF loperamide 2 mg capsule 2 mg PO TID PRN (Reason: loose stool) Qty: 30 0RF potassium chloride 10 mEq tablet extended release 20 meq PO BID Qty: 120 0RF acetaminophen 500 mg capsule 1,000 mg PO TID PRNQty: 100 0RF miconazole nitrate 2 % powder 1 applic topical BID PRNQty: 85 0RF multivitamin with folic acid [Daily-Charles (with folic acid)] 400 mcg tablet 1 tab PO DAILY metoprolol succinate 100 mg tablet extended release 24 hr 100 mg PO DAILY Qty: 90 0RF oxycodone 5 mg tablet 7.5 mg PO Q4H PRN (Reason: pain) Qty: 180 0RF Follow Up/Referrals: Flo Mckeon MD [Primary Care Provider] - Stand Alone Forms: [employer] Info Instructions
[2024-07-03 18:19] LABS: Appearance Urine Cloudy (Clear); Bilirubin Urine Negative (Negative); Blood Urine Trace-intact (Negative); Color Urine Yellow (Yellow); Glucose Urine Negative (Negative); Ketones Urine Negative (Negative); Leukocyte Esterase Urine 3+ (Negative); Nitrite Urine Positive (Negative); Protein Urine Negative (Negative); Specific Gravity Urine 1.015 (1.000-1.030); Urobilinogen Urine 0.2 (0.2-1.0)
--- OUTSIDE RECORDS SUMMARY | 2024-07-03 18:28 | XMS_ITS | Clinical Summary ---
Author Organization [facility] Address [address] [place] [id number] Phone Care Team Providers Care Mail Messenger Contractor Name Role Phone Flo Mckeon MD Primary Care Provider [phone] Medications Medication Sig Dispensed Refills Start Date End Date Status ibuprofen (ADVIL,MOTRIN) 400 MG tablet prn 0 01/31/2014 Active polyethylene glycol (MIRALAX) powder 17grams po 01/31/2014 Active mineral oil-hydrophilic petrolatum (AQUAPHOR) ointment Apply bid 01/31/2014 Active traZODone (DESYREL) 50 MG tablet 1 po qhs 0 01/31/2014 Active oxyCODONE (ROXICODONE) 5 MG immediate release tablet prn 0 01/31/2014 Active pseudoephedrine (SUDAFED) 30 MG tablet 2 po qday 01/31/2014 Ac tive doxycycline (VIBRAMYCIN) 100 MG capsule 1 po bid 01/31/2014 Active senna-docusate (SENOKOT S) 8.6-50 MG per tablet 1 po bid 01/31/2014 Active bisacodyl (DULCOLAX) 10 MG suppository prn 0 01/31/2014 Active predniSONE (DELTASONE) 10 MG tablet 1 po qday,may decrease to 5mg 0 01/31/2014 Active Active Problems Problem Noted Date Diagnosed Date Urinary tract infection 01/31/2014 Shortness of breath 01/31/2014 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 Bacteremia 01/31/2014 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 Social History Tobacco Use Types Packs/Day Years Used Date Smoking Tobacco: Never Assessed Sex and Gender Information Value Date Recorded Sex Assigned at Not on file Gender Identity Not on file Sexual Orientation Not on file Last Filed Vital Signs Vital Sign Reading Time Taken Comments Blood Pressure 122/62 01/31/2014 12:01 AM CDT Le ft Pulse - - Temperature - - Respiratory Rate - - Oxygen Saturation - - Inhaled Oxygen Concentration - - Weight 56.7 kg (125 lb) 01/31/2014 12:01 AM CDT Height 154.9 cm (5' 1) 01/31/2014 12:01 AM CDT Body Mass Index 23.62 01/31/2014 12:01 AM CDT Plan of Treatment Not on file Care Teams Mail Messenger Contractor Relationship Specialty Start Date End Date Flo Mckeon MD [address] [place] [id number] PCP - General 05/11/24
--- OUTSIDE RECORDS SUMMARY | 2024-07-03 18:29 | XMS_ITS | Referral Summary ---
Author Organization [place] Address [facility] [place] [address] Care Team Providers Care Vendor Quality Supervisor Name Role Phone Flo Mckeon MD Primary Care Provider [phone] Encounters Date Type Department Care Team Description 05/10/2024 2:20 PM CDT - 05/26/2024 3:13 PM CDT Hospital Encounter [facility] General Surgery [address] [place] [address] Nemesio Davila MD Powell, MD Jake Parra Srivani, MD Chronic osteomyelitis (H) (Primary Dx); Acute cystitis with hematuria; Osteomyelitis of coccyx (H); Septic shock (H); Drug-induced constipation; Loose stools; Chronic pain syndrome; Chronic atrial fibrillation (H); Pressure injury of skin, unspecified injury stage, unspecified location [L89.90]; Attention to colostomy (H) [Z43.3] Discharge Disposition: [facility] Facility 05/21/[address] [facility] [address] [address] Leela Degroot APRN CNP Prior Auth - Medication (Pregabalin - Denied) 05/21/[address] [facility] [address] [phone] Leela Degroot, AMIRAH DRIVER RETRAINING INSTRUCTOR Prior Auth - Medication (Buprenorphine patch - Approved) 05/18/2024 Medical Correspondence [facility] Info Mgmt [facility] [address] [phone] Scan, Non-Provider 05/18/2024 5:30 PM CDT [facility] [address] [place] [address] Pool Palacios DO Van Kirk, Patrick, MD 05/18/2024 5:29 PM CDT - 05/18/2024 8:14 PM CDT Surgery [facility] [address] [place] [phone] Peter Krishnamurthy MD Laparoscopic diverting colostomy 05/10/2024 Travel from Last 3 Months Allergies Active Allergy Reactions Criticality Noted Date Comments Piperacillin Other (See Comments),Anaphylaxis,Ra sh,Unknown High 09/18/2023 Tolerated augmentin, ceftriaxone, meropenem Per SNF Per patient, has tolerated Augmentin Tazobactam Anaphylaxis,Unknown, Othe r (See Comments),Rash High 09/18/2023 Per SNF Vancomycin Anaphylaxis,Other (S ee Comments) High 09/18/2023 Per SNF Medications Medication Sig Dispensed [...] Active Ascorbic Acid (VITAMIN C PO) Take 500 mg by mouth every evening Active naproxen sodium (ANAPROX) 220 MG tablet Take 220 mg by mouth daily (with breakfast) Active furosemide (LASIX) 40 MG tablet Take 40 mg by mouth daily Active predniSONE (DELTASONE) 5 MG tablet Take 10 mg by mouth daily Active triamcinolone (KENALOG) 0.1 % external cream Apply topically 2 times daily as needed for irritation Active bisacodyl (DULCOLAX) 10 MG suppositoryIndicat ions:Drug-induced constipation Place 1 suppository (10 mg) rectally daily as needed for constipation 30 suppository 05/15/2024 Active loperamide (IMODIUM) 2 MG capsuleIndications :Loose stools Take 1 capsule (2 mg) by mouth 3 times daily as needed for diarrhea 60 capsule 05/15/2024 Active Lidocaine (LIDOCARE) 4 % PatchIndications:C hronic pain syndrome Place 3 patches onto the skin every 24 hours To prevent lidocaine toxicity, patient should be patch free for 12 hrs daily. 30 patch 05/15/2024 Active polyethylene glycol (MIRALAX) 17 GM/Dose powderIndications: Drug-induced constipation Take 17 g by mouth daily 510 g 05/15/2024 Active sennosides (SENOKOT) 8.6 MG tabletIndications: Drug-induced constipation Take 1-2 tablets by mouth 2 times daily as needed for constipation 30 tablet 05/15/2024 Active HYDROmorphone (DILAUDID) 2 MG tabletIndications: Chronic pain syndrome Take 1 tablet (2 mg) by mouth every 3 hours as needed for severe pain 12 tablet 05/25/2024 Active metoprolol tartrate (LOPRESSOR) 25 MG tabletIndications: Chronic atrial fibrillation Take 1 tablet (25 mg) by mouth 2 times daily 05/25/2024 Active diclofenac (VOLTAREN) 1 % topical gelIndications:Chr onic pain syndrome Apply 4 g topically 3 times daily left shoulder righ hipand around colostomy area 05/25/2024 Active pregabalin (LYRICA) 75 MG capsuleIndications :Chronic pain syndrome Take 1 capsule (75 mg) by mouth 3 times daily 12 capsule 05/25/2024 Active Active Problems Problem Noted Date Diagnosed Date Chronic indwelling Cristobal catheter 05/14/2024 Chronic osteomyelitis 05/14/2024 Acute cystitis with hematuria 05/10/2024 Osteomyelitis of coccyx 05/10/2024 Paraplegia 03/06/2024 Elevated lactic acid level 03/06/2024 [...] Sign Reading Time Taken Comments Blood Pressure 122/48 05/26/2024 8:28 AM CDT Pulse 81 05/26/2024 8:28 AM CDT Temperature 37.2 ??C (98.9 ??F) 05/26/2024 8:28 AM CD T Respiratory Rate 18 05/26/2024 8:28 AM CDT Oxygen Saturation 94% 05/26/2024 8:28 AM CDT Inhaled Oxygen Concentration - - Weight 61.1 kg (134 lb 11.2 oz) 05/26/2024 7:15 AM CDT Height 152.4 cm (5') 05/10/2024 8:52 PM CDT Body Mass Index 26.31 05/10/2024 8:52 PM CDT Plan of Treatment Not on file Procedures Procedure Name Priority Date/Time Associated Diagnosis Comments URINE CULTURE Routine 06/07/2024 7:01 PM CDT Frequency of micturition Fever, unspecified ROUTINE UA WITH MICROSCOPIC Routine 06/07/2024 7:01 PM CDT Frequency of micturition Fever, unspecified CBC WITH PLATELETS & DIFFERENTIAL Routine 06/03/2024 12:01 PM CDT Anemia, unspecified Local infection of the skin and subcutaneous tissue, unspecified BASIC METABOLIC PANEL (OUTREACH) Routine 06/03/2024 12:01 PM CDT Anemia, unspecified Local infection of the skin and subcutaneous tissue, unspecified TRIP CHARGE - LAB ONLY Routine 06/03/2024 12:01 PM CDT Anemia, unspecified Local infection of the skin and subcutaneous tissue, unspecified CBC WITH PLATELETS AND DIFFERENTIAL Routine 06/03/2024 12:01 PM CDT Anemia, unspecified Local infection of the skin and subcutaneous tissue, unspecified BASIC METABOLIC PANEL NO GLUCOSE (OUTREACH) Routine 06/03/2024 12:01 PM CDT Anemia, unspecified Local infection of the skin and subcutaneous tissue, unspecified GLUCOSE (OUTREACH) Routine 06/03/2024 12 :01 PM CDT Anemia, unspecified Local infection of the skin and subcutaneous tissue, unspecified BASIC METABOLIC PANEL (OUTREACH) Routine 06/02/2024 8:41 AM CDT Anemia, unspecified TRIP CHARGE - LAB ONLY Routine 06/02/2024 8:41 AM CDT Anemia, unspecified BASIC METABOLIC PANEL NO GLUCOSE (OUTREACH) Routine 06/02/2024 8:41 AM CDT Anemia, unspecified GLUCOSE (OUTREACH) Routine 06/02/2024 8: 41 AM CDT Anemia, unspecified CBC WITH PLATELETS Routine 06/02/2024 8: 41 AM CDT Anemia, unspecified EXTRA GREEN TOP TUBE (LAB USE ONLY) Routine 05/24/2024 7:31 AM CDT PLATELET COUNT Routine 05/24/2024 7:31 AM CDT CBC WITH PLATELETS Routine 05/21/2024 7: 05 AM CDT BASIC METABOLIC PANEL Routine 05/21/2024 7:05 AM CDT GLUCOSE BY METER Routine 05/19/2024 10:2 1 PM CDT PHOSPHORUS Routine 05/19/2024 6:06 AM CDT MAGNESIUM Routine 05/19/2024 6:06 AM CDT CBC WITH PLATELETS Routine 05/19/2024 6: 06 AM CDT BASIC METABOLIC PANEL Routine 05/19/2024 6:06 AM CDT ANE AIRWAY ETT PERFORMABLE Routine 05/18/2024 5:40 PM CDT LAP, SURG COLOSTOMY 05/18/2024 5 :30 PM CDT Decubitus ulcer ABO/RH TYPE AND SCREEN Routine 05/18/2024 11:18 AM CDT TYPE AND SCREEN, ADULT Routine 05/18/2024 11:18 AM CDT BASIC METABOLIC PANEL Routine 05/18/2024 11:18 AM CDT HEMOGLOBIN Routine 05/18/2024 11:18 AM CDT PLATELET COUNT Routine 05/18/2024 11:18 AM CDT CK TOTAL Routine 05/18/2024 11:18 AM CDT MIDLINE SINGLE LUMEN PLACEMENT Routine 05/18/2024 9:15 AM CDT CBC WITH PLATELETS Routine 05/16/2024 8: 42 AM CDT BASIC METABOLIC PANEL Routine 05/16/2024 8:42 AM CDT PLATELET COUNT Routine 05/15/2024 8:46 AM CDT C. DIFFICILE TOXIN B PCR WITH REFLEX TO C. DIFFICILE ANTIGEN AND TOXINS A/B EIA Routine 05/14/2024 4:01 PM CDT BASIC METABOLIC PANEL Routine 05/13/2024 8:16 AM CDT CBC WITH PLATELETS Routine 05/13/2024 8: 16 AM CDT URINE CULTURE Routine 05/12/2024 12:20 PM CDT BASIC METABOLIC PANEL Routine 05/11/2024 10:55 AM CDT WBC COUNT Routine 05/11/2024 10:[address] CHEST/ABDOMEN/PELVIS W CONTRAST STAT 05/10/2024 4:42 PM CDT ROUTINE UA WITH MICROSCOPIC STAT 05/10/2024 4:42 PM CDT EKG 12-LEAD, TRACING ONLY STAT 05/10/2024 3:43 PM CDT BLOOD CULTURE STAT 05/10/2024 2:48 PM CDT INFLUENZA A/B, RSV, & SARS-COV2 PCR STAT 05/10/2024 2:46 PM CDT CBC WITH PLATELETS & DIFFERENTIAL STAT 05/10/2024 2:44 PM CDT CK TOTAL STAT 05/10/2024 2:44 PM CDT CRP INFLAMMATION STAT 05/10/2024 2:44 PM CDT LIPASE STAT 05/10/2024 2:44 PM CDT CBC WITH PLATELETS AND DIFFERENTIAL STAT 05/10/2024 2:44 PM CDT COMPREHENSIVE METABOLIC PANEL STAT 05/10/2024 2:44 PM CDT ISTAT GASES LACTATE VENOUS POCT STAT 05/10/2024 2:40 PM CDT from Last 3 Months Results * (ABNORMAL) UA with Microscopic (06/07/2024 7:01 PM CDT) Only the most recent of2 resultswithin the time period is included. Color Urine Yellow Colorless, Straw, Light Yellow, Yellow 06/07/2024 9:37 PM CDT [facility] Appearance Urine Slightly Cloudy(A) Clear 06/07/2024 9:37 PM CDT [facility] Glucose Urine Negative Negative mg/dL 06/07/2024 9:37 PM CDT [facility] Bilirubin Urine Negative Negative 9:37 PM CDT [facility] Ketones Urine Negative Negative mg/dL 06/07/2024 9:37 PM CDT [facility] Specific Canvas Urine 1.011 1.003 - 1.035 06/07/2024 9:37 PM CDT [facility] Blood Urine Small(A) Negative 06/07/2024 9:37 PM CDT [facility] pH Urine 5.0 5.0 - 7.0 06/07/2024 9:37 PM CDT [facility] Protein Albumin Urine 20(A) Negative mg/dL 06/07/2024 9:37 PM CDT [facility] Urobilinogen Urine Normal Normal, 2.0 mg/dL 06/07/2024 9:37 PM CDT [facility] Nitrite Urine Negative Negative 06/07/2024 9:37 PM CDT [facility] Leukocyte Esterase Urine Large(A) Negative 06/07/2024 9:37 PM CDT [facility] WBC Clumps Urine Present(A) None Seen /HPF 06/07/2024 9:37 PM CDT [facility] Budding Yeast Urine Few(A) None Seen /HPF 06/07/2024 9:37 PM CDT [facility] RBC Urine 7(H) <=2 /HPF 06/07/2024 9:37 PM CDT [facility] WBC Urine 108(H) <=5 /HPF 06/07/2024 9:37 PM CDT [facility] Urine URINE SPECIMEN OBTAINED BY CLEAN CATCH PROCEDURE / Unknown Non-blood Collection / Unknown 06/07/2024 7:01 PM CDT 06/07/2024 7:01 PM CDT Lab Non-Fv Credentialed Provider LAB - U RINE ORDERABLES [facility] Lab [address], [address] [place] [address] * (ABNORMAL) Urine Culture (06/07/2024 7:01 PM CDT) Only the most recent of2 resultswithin the time period is included. Culture 50,000-100,000 CFU/mL Escherichia coli(A) 06/08/2024 11:44 PM CDT [facility] LABORATORY Urine URINE SPECIMEN OBTAINED BY CLEAN CATCH PROCEDURE / Unknown Non-blood Collection / Unknown 06/07/2024 7:01 PM CDT 06/07/2024 7:01 PM CDT Narrative Organism Antibiotic Method Susceptibility Escherichia coli Ampicillin DAWSON >=32 ug/mL: Resistant Escherichia coli Ampicillin/ Sulbactam DAWSON 8 ug/mL: Susceptible Escherichia coli Piperacillin/Tazobactam DAWSON <=4 ug/mL: Susceptible Escherichia coli Cefazolin DAWSON <=4 ug/mL: Susceptible Comment:Cefazolin CT C breakpoints are for the treatment of [...] Escherichia coli Trimethoprim/Sulfamethoxazole DAWSON <=1/19 ug/mL: Susceptible Lab Non-Fv Credentialed Provider LAB - M ICRO GENERAL ORDERABLES [facility] IDD LABORATORY [facility] Inf. Diseases Diag. Lab [address] [facility], [address] [place] [address], [facility] * Trip Charge - LAB ONLY (06/03/2024 12:01 PM CDT) Only the most recent of2 resultswithin the time period is included. Other TOPOGRAPHY UNKNOWN / Unknown Billing only / Unknown 06/03/2024 12:01 PM CDT 06/03/2024 2:00 PM CDT Bharath Kelly MD LAB CHARGE PERFORMAB LES [facility] [address] [address], [facility] * (ABNORMAL) Basic Metabolic Panel No Glucose (OUTREACH) (06/03/2024 12:01 PM CDT) Only the most recent of2 resultswithin the time period is included. Sodium 143 135 - 145 mmol/L 06/03/2024 4:13 PM CDT [facility] Potassium 4.0 3.4 - 5.3 mmol/L 06/03/2024 4:13 PM CDT [facility] Chloride 99 98 - 107 mmol/L 06/03/2024 4:13 PM CDT [facility] Carbon Dioxide (CO2) 31(H) 22 - 29 mmol/L 06/03/2024 4:13 PM CDT [facility] Anion Gap 13 7 - 15 mmol/L 06/03/2024 4:13 PM CDT [facility] Urea Nitrogen 35.3(H) 8.0 - 23.0 mg/dL 06/03/2024 4:13 PM CDT [facility] Creatinine 0.30(L) 0.51 - 0.95 mg/dL 06/03/2024 4:13 PM CDT [facility] GFR Estimate >90 >60 mL/min/1.7 3m2 06/03/2024 4:13 PM CDT [facility] Calcium 8.7(L) 8.8 - 10.4 mg/dL 06/03/2024 4:13 PM CDT [facility] Comment:Reference intervals for this test were updated on 04/27/2024 to reflect our healthy population more accurately. There may be differences in the flagging of prior results with similar values performed with this method. Those prior results can be interpreted in the context of the updated reference intervals. Blood STRUCTURE OF LEFT UPPER LIMB / Unknown Venipuncture / Unknown 06/03/2024 12:01 PM CDT 06/03/2024 2:00 PM CDT Bharath Kelly MD LAB - BLOOD ORDERABL ES Performing Organization Address City/[facility]/ZIP Co de Phone Number U LABORATORY [facility] Core Lab [address] [facility], [address] * (ABNORMAL) Glucose (OUTREACH) (06/03/2024 12:01 PM CDT) Only the most recent of2 resultswithin the time period is included. Pathologist [facility] Glucose 227(H) 70 - 99 mg/dL 06/03/2024 4:09 PM CDT [facility] Blood STRUCTURE OF LEFT UPPER LIMB / Unknown Venipuncture / Unknown 06/03/2024 12:01 PM CDT 06/03/2024 2:00 PM CDT Bharath Kelly MD LAB - BLOOD ORDERABL ES Performing Organization Address [facility] de Phone Number U LABORATORY [facility] Core Lab [address] [facility], [address] * (ABNORMAL) CBC with platelets and differential (06/03/2024 12:01 PM CDT) Only the most recent of2 resultswithin the time period is included. Pathologist [facility] WBC Count 14.5(H) 4.0 - 11.0 10e3/uL 06/03/2024 4:04 PM CDT [facility] RBC Count 4.11 3.80 - 5.20 10e6/uL 06/03/2024 4:04 PM CDT [facility] Hemoglobin 10.7(L) 11.7 - 15.7 g/dL 06/03/2024 4:04 PM CDT [facility] Hematocrit 37.6 35.0 - 47.0 % 06/03/2024 4:04 PM CDT [facility] MCV 92 78 - 100 fL 06/03/2024 4:04 PM CDT [facility] MCH 26.0(L) 26.5 - 33.0 pg 06/03/2024 4:04 PM CDT [facility] MCHC 28.5(L) 31.5 - 36.5 g/dL 06/03/2024 4:04 PM CDT [facility] RDW 20.2(H) 10.0 - 15.0 % 06/03/2024 4:04 PM CDT [facility] Platelet Count 335 150 - 450 10e3/uL 06/03/2024 4:04 PM CDT [facility] % Neutrophils 78 % 06/03/2024 4:04 PM CDT [facility] % Lymphocytes 14 % 06/03/2024 4:04 PM CDT [facility] % Monocytes 3 % 06/03/2024 4:04 PM CDT [facility] % Eosinophils 4 % 06/03/2024 4:04 PM CDT [facility] % Basophils 0 % 06/03/2024 4:04 PM CDT [facility] % Immature Granulocytes 1 % 06/03/2024 4:04 PM CDT [facility] NRBCs per 100 WBC 0 <1 /100 024 4:04 PM CDT [facility] Absolute Neutrophils 11.2(H) 1.6 - 8.3 10e3/uL 06/03/2024 4:04 PM CDT [facility] Absolute Lymphocytes 2.0 0.8 - 5.3 10e3/uL 06/03/2024 4:04 PM CDT [facility] Absolute Monocytes 0.5 0.0 - 1.3 10e3/uL 06/03/2024 4:04 PM CDT [facility] Absolute Eosinophils 0.6 0.0 - 0.7 10e3/uL 06/03/2024 4:04 PM CDT [facility] Absolute Basophils 0.1 0.0 - 0.2 10e3/uL 06/03/2024 4:04 PM CDT [facility] Absolute Immature Granulocytes 0.2 <=0.4 10e3/uL 06/03/2024 4:04 PM CDT [facility] Absolute NRBCs 0.0 10e3/uL 06/03/2024 4:04 PM CDT [facility] Blood STRUCTURE OF LEFT UPPER LIMB / Unknown Venipuncture / Unknown 06/03/2024 12:01 PM CDT 06/03/2024 2:00 PM CDT Bharath Kelly MD LAB - BLOOD ORDERABL ES [facility] LABORATORY [facility] Core Lab [address] [facility], [address] [place] [address] * (ABNORMAL) CBC with platelets (06/02/2024 8:41 AM CDT) Only the most recent of5 resultswithin the time period is included. WBC Count 12.2(H) 4.0 - 11.0 10e3/uL 06/02/2024 3:13 PM CDT [facility] RBC Count 4.01 3.80 - 5.20 10e6/uL 06/02/2024 3:13 PM CDT [facility] Hemoglobin 10.4(L) 11.7 - 15.7 g/dL 06/02/2024 3:13 PM CDT [facility] Hematocrit 36.9 35.0 - 47.0 % 06/02/2024 3:13 PM CDT [facility] MCV 92 78 - 100 fL 06/02/2024 3:13 PM CDT [facility] MCH 25.9(L) 26.5 - 33.0 pg 06/02/2024 3:13 PM CDT [facility] MCHC 28.2(L) 31.5 - 36.5 g/dL 06/02/2024 3:13 PM CDT [facility] RDW 20.5(H) 10.0 - 15.0 % 06/02/2024 3:13 PM CDT [facility] Platelet Count 349 150 - 450 10e3/uL 06/02/2024 3:13 PM CDT [facility] Blood STRUCTURE OF LEFT UPPER LIMB / Unknown Venipuncture / Unknown 06/02/2024 8:41 AM CDT 06/02/2024 1:57 PM CDT Lab Non-Fv Credentialed Provider LAB - B LOOD ORDERABLES [facility] LAB[facility]AT[facility] Core Lab [address] [facility], [address] [place] [address] * Extra Green Top Tube (LAB USE ONLY) (05/24/2024 7:31 AM CDT) Hold Specimen 0 05/24/2024 8:21 AM CDT LABORATORY Blood STRUCTURE OF RIGHT UPPER LIMB / Unknown Venipuncture / Unknown 05/24/2024 7:31 AM CDT 05/24/2024 8:09 AM CDT Ambar Joseph MD LAB - BLOOD ORDERABL ES Performing Organization Address City/[facility]/ZIP Co de Phone Number [facility] Lab [address] 1[address], [address] [place] [address], [facility] [phone] * Platelet count (05/24/2024 7:31 AM CDT) Only the most recent of3 resultswithin the time period is included. Platelet Count 286 150 - 450 10e3/uL 05/24/2024 8:13 AM CDT LABORATORY Blood STRUCTURE OF RIGHT UPPER LIMB / Unknown Venipuncture / Unknown 05/24/2024 7:31 AM CDT 05/24/2024 8:10 AM CDT Peter Krishnamurthy MD LAB - BLOOD ORDERABL ES Performing Organization Address [facility]/ZIP Co de Phone Number [facility] [address], [address] [place] [address], [facility] [phone] * (ABNORMAL) Basic metabolic panel (05/21/2024 7:05 AM CDT) Only the most recent of6 resultswithin the time period is included. Sodium 143 135 - 145 mmol/L 05/21/2024 7:44 AM CDT LABORATORY Potassium 3.4 3.4 - 5.3 mmol/L 05/21/2024 7:44 AM CDT LABORATORY Chloride 104 98 - 107 mmol/L 05/21/2024 7:44 AM CDT LABORATORY Carbon Dioxide (CO2) 32(H) 22 - 29 mmol/L 05/21/2024 7:44 AM CDT LABORATORY Anion Gap 7 7 - 15 mmol/L 05/21/2024 7:44 AM CDT LABORATORY Urea Nitrogen 31.0(H) 8.0 - 23.0 mg/dL 05/21/2024 7:44 AM CDT LABORATORY Creatinine 0.44(L) 0.51 - 0.95 mg/dL 05/21/2024 7:44 AM CDT LABORATORY GFR Estimate >90 >60 mL/min/1.7 3m2 05/21/2024 7:44 AM T LABORATORY Comment:eGFR calculated usut 2020 CKD-EPI equation. Calcium 8.6(L) 8.8 - 10.4 mg/dL 05/21/2024 7:44 AM T LABORATORY Comment:Reference intervals for this test were updated on 04/27/2024 to reflect our healthy population more accurately. There may be differences in the flagging of prior results with similar values performed with this method. Those prior results can be interpreted in the context of the updated reference intervals. Glucose 96 70 - 99 mg/dL 05/21/2024 7:44 AM CDT LABORATORY Blood STRUCTURE OF LEFT HAND / Unknown Venipuncture / Unknown 05/21/2024 7:05 AM CDT 05/21/2024 7:23 AM CDT Janak Robledo PA-C LAB - BLOOD ORDERA BLES LABORATORY [facility] Lab [address], [address] [place] [address], [facility] [phone] * (ABNORMAL) Glucose by meter (05/19/2024 10:21 PM CDT) [facility] GLUCOSE BY METER POCT 157(H) 70 - 99 mg/dL 05/19/2024 10:28 PM CDT LABORATORY POC Blood, Capillary BLOOD SPECIMEN / Unknown 05/19/2024 10:21 PM CDT 05/19/2024 10:28 PM CDT Ambar Joseph MD LAB - BEAKER POCT LABORATORY POC [facility] Lab [address], [address] [place] [address], [facility] * (ABNORMAL) Phosphorus (05/19/2024 6:06 AM CDT) Phosphorus 4.8(H) 2.5 - 4.5 mg/dL 05/19/2024 7:15 AM CDT LABORATORY Blood STRUCTURE OF RIGHT UPPER LIMB / Unknown Venipuncture / Unknown 05/19/2024 6:06 AM CDT 05/19/2024 6:34 AM CDT Peter Krishnamurthy MD LAB - BLOOD ORDERABL ES Performing Organization Address City/[facility]/ZIP Co de Phone Number LABORATORY [facility] Lab [address], [address] [address], [facility] [phone] * Magnesium (05/19/2024 6:06 AM CDT) Magnesium 1.9 1.7 - 2.3 mg/dL 05/19/2024 7:15 AM CDT LABORATORY Blood STRUCTURE OF RIGHT UPPER LIMB / Unknown Venipuncture / Unknown 05/19/2024 6:06 AM CDT 05/19/2024 6:34 AM CDT Peter Krishnamurthy MD LAB - BLOOD ORDERABL ES Performing Organization Address City/[facility]/ZIP Co de Phone Number LABORATORY [facility] Lab [address] 1[address], [address] [place] [address], [facility] [phone] * ANE AIRWAY ETT PERFORMABLE (05/18/2024 5:40 PM CDT) Narrative Meri Song - 05/18/2024 5:40 PM CDT Meri Song ? 05/18/2024 ??6:14 PM Airway ? Patient location during procedure: OR ? Procedure Start/Stop Times: 05/18/2024 5:40 PM Staff - ? Anesthesiologist: ??Pool Palacios, DO ? SPORTS COORDINATOR: Mallika Foster APRN CRNA ? Other Anesthesia Staff: Meri Song ? Performed By: SRNA and SPORTS COORDINATOR Consent for Airway ? Urgency: elective Indications and Patient Condition ? Indications for airway management: kwabena-procedural ? Induction type:intravenous ? Mask difficulty assessment: 2 - vent by mask + OA or adjuvant +/- NMBA Final Airway Details ? Final airway type: endotracheal airway ? Successful airway: ETT - single and Oral Endotracheal Airway Details ? ETT size (mm): 6.5 ? Cuffed: yes ? Successful intubation technique: video laryngoscopy ? VL Blade Size: Glidescope 3 ? Grade View of Cords: 1 ? Adjucts: stylet ? Position: Right ? Measured from: lips ? Secured at (cm): 21 ? Bite block used: None Post intubation assessment ? Placement verified by: capnometry, equal breath sounds and chest rise ? Number of attempts at approach: 1 ? Number of other approaches attempted: 0 ? Secured with: tape ? Ease of procedure: easy ? Dentition: Intact and Unchanged Medication(s) Administered Medication Administration Time: 05/18/2024 5:40 PM Pool Palacios DO [place] [facility] * Adult Type and Screen (05/18/2024 11:18 AM CDT) ABO/RH(D) A POS 05/18/2024 7:11 AM CDT BLOOD BANK Antibody Screen Negative Negative 05/18/2024 7:11 AM CDT BLOOD BANK SPECIMEN EXPIRATION DATE [id number] 05/18/2024 7:11 AM CDT BLOOD BANK Blood BLOOD SPECIMEN / Unknown Venipuncture / Unknown 05/18/2024 11:18 AM CDT 05/18/2024 11:35 AM CDT Janak Robledo PA-C LAB - BLOOD BANK T EST ORDER Performing Organization Address [facility]/ZIP Co de Phone Number BLOOD BANK [address] [place] [address], [facility] * (ABNORMAL) Hemoglobin (05/18/2024 11:18 AM CDT) Hemoglobin 10.2(L) 11.7 - 15.7 g/dL 05/18/2024 11:39 AM CDT LABORATORY Blood BLOOD SPECIMEN / Unknown Venipuncture / Unknown 05/18/2024 11:18 AM CDT 05/18/2024 11:35 AM CDT Janak Robledo PA-C LAB - BLOOD ORDERA BLES Performing Organization Address [facility] Co de Phone Number LABORATORY [facility] [address] 1[address], [address] [place] [address], [facility] [phone] * (ABNORMAL) CK total (05/18/2024 11:18 AM CDT) Only the most recent of2 resultswithin the time period is included. CK 12(L) 26 - 192 U/L 05/18/2024 12:01 PM CDT LABORATORY Blood BLOOD SPECIMEN / Unknown Venipuncture / Unknown 05/18/2024 11:18 AM CDT 05/18/2024 11:35 AM CDT Peter Krishnamurthy MD LAB - BLOOD ORDERABL ES Performing Organization Address City/[facility]/ZIP Co de Phone Number LABORATORY [facility] [address], [address] [place] [address], [facility] [phone] * Single Lumen Midline Placement (05/18/2024 9:15 AM CDT) Narrative Dede Downing RN - 05/18/2024 9:15 AM CDT Dede Downing RN ? 05/18/2024 ??9:19 AM [facility] Single Lumen Midline Placement Date/Time: 05/18/2024 9:15 AM Performed by: Dede Downing RN Authorized by: Janak Robledo PA-C ??Indications: vascular access UNIVERSAL PROTOCOL Site Marked: Yes Prior Images Obtained and Reviewed: ??NA Required items: Required blood products, implants, devices and special equipment available ?? Patient identity confirmed: ??Verbally with patient, arm band and hospital-assigned identification number NA - No sedation, light sedation, or local anesthesia Confirmation Checklist: ??Patient's identity using two indicators, relevant allergies, procedure was appropriate and matched the consent or emergent situation and correct equipment/implants were available Time out: Immediately prior to the procedure a time out was called ?? [place] Protocol: the Joint Commission [place] Protocol was followed ?? Preparation: Patient was prepped and draped in usual sterile fashion ?? ANESTHESIA Anesthesia: ??Local infiltration Local Anesthetic: ??Lidocaine 1% without epinephrine Anesthetic Total (mL): ??3 SEDATION Patient Sedated: No ?? Preparation: skin prepped with 2% chlorhexidine and skin prepped with ChloraPrep Skin prep agent: skin prep agent completely dried prior to procedure Sterile barriers: maximum sterile barriers were used: cap, mask, sterile gown, sterile gloves, and large sterile sheet Hand hygiene: hand hygiene performed prior to central venous catheter insertion Type of line used: Midline Catheter type: single lumen Lumen type: valved Catheter size: 4 Fr Brand: Bard Lot number: [id number] Placement method: MST and ultrasound Number of attempts: 3 Difficulty threading catheter: no Successful placement: yes Orientation: right Location: brachial vein (medial) Tip Location: distal to axillary vein Arm circumference: adults 10 cm Extremity circumference: 28 Visible catheter length: 0 Internal length: 13 cm Total catheter length: 13 Dressing and securement: antibiotic disc placed, occlusive dressing applied and statlock Post procedure assessment: blood return through all ports PROCEDURE Patient Tolerance: ??Patient tolerated the procedure well with no immediate complicationsDescribe Procedure: Patient agreed to have midline placed due to poor IV access ??Procedure explained to patient ??Attempted right basilic vein x 2 attempts but was unable to thread catheter ??Attempted right medial brachial vein and was able to successfully place line ??Ready for immediate use ?? Janak Robledo PA-C PROCEDURE/MINOR FLEMING RGICAL ORDERABLES * C. difficile Toxin B PCR with reflex to C. difficile Antigen and Toxins A/B EIA (05/14/2024 4:01 PMCDT) C Difficile Toxin B by PCR Negative Negative 05/14/2024 7:39 PM CDT [facility] Comment:A negative result do es not exclude actual disease due to C. difficile and may be due to improper collection, handling and storage of the specimen or the number of organisms in the specimen is below the detection limit of the assay. Stool RECTAL CONTENTS / Unknown Non-blood Collection / Unknown 05/14/2024 4:01 PM CDT 05/14/2024 4:06 PM CDT Narrative [facility] - 05/14/2024 7:39 PM CDT [employer] Xpert C. difficile Assay, performed on the [employer] Instrument Systems, is a qualitative in vitro diagnostic test for rapid detection of toxin B gene sequences from unformed (liquid or soft) stool specimens collected from patients suspected of having Clostridioides difficile infection (CDI). The test utilizes automated real-time polymerase chain reaction (PCR) to detect toxin gene sequences associated with toxin producing C. difficile. The Xpert C. difficile Assay is intended as an aid in the diagnosis of CDI. Anna Fajardo MD LAB - MICRO GENERA L ORDERABLES [facility] Inf. Diseases Diag. Lab [address] [facility], [address] [place] [address] * (ABNORMAL) WBC count (05/11/2024 10:55 AM CDT) WBC Count 13.4(H) 4.0 - 11.0 10e3/uL 05/11/2024 11:27 AM CDT LABORATORY Blood STRUCTURE OF RIGHT UPPER LIMB / Unknown Venipuncture / Unknown 05/11/2024 10:55 AM CDT 05/11/2024 11:24 AM CDT Ambar Joseph MD LAB - BLOOD ORDERABL ES LABORATORY [facility] [address] 1[address] floor, [address] [place] [address], [facility] [phone] * CT Chest/Abdomen/Pelvis w Contrast (05/10/2024 4:42 PM CDT) Anatomical Region Laterality Modality Abdomen/Pelvis, Chest, SUBRA D CT BODY, UMP CT CHEST, UMP CT ABDOMEN PELVIS, RAD CT Computed Tomography 05/10/2024 4:42 PM CDT Impressions 05/10/2024 5:20 PM CDT IMPRESSION: 1. ??Multiple decubitus ulcers, with CT findings suspicious for acute osteomyelitis involving the coccyx, and chronic osteomyelitis involving the right ischium. No drainable fluid collections. 2. ??Cristobal catheter within the vagina. 3. ??Nonobstructing right renal pelvis stones, including 13 mm right UPJ calculus. 4. ??Anal wall thickening is likely related to chronic inflammation. Follow-up advised to exclude underlying lesions. Tube/Catheter positioning was called to Chago Meadows PA-C by Dr. Rai Lock on 05/10/2024 5:18 PM CDT. Narrative 05/10/2024 5:20 PM CDT EXAM: CT CHEST/ABDOMEN/PELVIS W CONTRAST LOCATION: [facility] DATE: 05/10/2024 INDICATION: Fever, paraplegia, abdominal pain COMPARISON: 12/08/2013, 12/02/2013 TECHNIQUE: CT scan of the chest, abdomen, and pelvis was performed following injection of IV contrast. Multiplanar reformats were obtained. Dose reduction techniques were used. CONTRAST: 62mL Isovue 370 FINDINGS: LUNGS AND PLEURA: Linear scarring and atelectasis in both lower lobes. No acute infiltrates, effusions, or pneumothorax. MEDIASTINUM/AXILLAE: Moderate atherosclerotic disease. No significant mediastinal or hilar adenopathy. CORONARY ARTERY CALCIFICATION: Mild. HEPATOBILIARY: Cholecystectomy with expected mild prominence of the biliary system. PANCREAS: No ductal dilatation. SPLEEN: Unremarkable ADRENAL GLANDS: Unremarkable KIDNEYS/BLADDER: No hydronephrosis. 2 mm left lower pole renal calculus. There are 2 right renal pelvic stones, new in the interval, largest at the level of the UPJ reaching 1.3 x 7 x 6 mm. Smaller stone measures approximately 4 to 5 mm in maximum dimension. Bladder is completely decompressed. Cristobal catheter noted within the vagina. BOWEL: No small bowel obstruction. Large rectal fecal burden. There is significant anal wall thickening. High density circular structure adjacent to the right aspect of the anal canal presumably represents a seton. LYMPH NODES: No significant retroperitoneal or pelvic sidewall adenopathy. VASCULATURE: Extensive atherosclerotic calcification with fusiform aneurysmal dilatation of the infrarenal abdominal aorta reaching 2.4 cm. PELVIC ORGANS: No free fluid. Decrease in the left ovarian cyst, now 2.2 cm, previously 2.9 cm. MUSCULOSKELETAL: Several decubitus ulcers are identified posteriorly in the pelvis, overlying the right ischium, right perianal region, and right presacral space. Subcutaneous gas and skin thickening noted. No drainable fluid collections. Generalized osteopenia limits exam. Previous thoracal lumbar stabilization with multilevel scoliosis and spondylosis. There is poor definition of the posterior cortex of the sacrococcygeal region adjacent to the decubitus ulcer suspicious for developing osteomyelitis. Irregularity of the right ischium noted, with associated chronic bony sclerosis, as well as periosteal reaction compatible with chronic osteomyelitis. Soft tissue overlying the left ischium noted without fluid collections or associated bony destruction/sclerosis. Advanced degenerative changes in the right shoulder with moderate changes in the left shoulder and both hips. Procedure Note Rai Lock MD - 05/10/2024 EXAM: CT CHEST/ABDOMEN/PELVIS W CONTRAST LOCATION: [facility] DATE: 05/10/2024 INDICATION: Fever, paraplegia, abdominal pain COMPARISON: 12/08/2013, 12/02/2013 TECHNIQUE: CT scan of the chest, abdomen, and pelvis was performedfollowing injection of IV contrast. Multiplanar reformats were obtained.Dose reduction techniques were used. CONTRAST: 62mL Isovue 370 FINDINGS: LUNGS AND PLEURA: Linear scarring and atelectasis in both lower lobes. Noacute infiltrates, effusions, or pneumothorax. MEDIASTINUM/AXILLAE: Moderate atherosclerotic disease. No significantmediastinal or hilar adenopathy. CORONARY ARTERY CALCIFICATION: Mild. HEPATOBILIARY: Cholecystectomy with expected mild prominence of thebiliary system. PANCREAS: No ductal dilatation. SPLEEN: Unremarkable ADRENAL GLANDS: Unremarkable KIDNEYS/BLADDER: No hydronephrosis. 2 mm left lower pole renal calculus.There are 2 right renal pelvic stones, new in the interval, largest at thelevel of the UPJ reaching 1.3 x 7 x 6 mm. Smaller stone measuresapproximately 4 to 5 mm in maximum dimension. Bladder is completely decompressed. Cristobal catheter noted withinthe vagina. BOWEL: No small bowel obstruction. Large rectal fecal burden. There issignificant anal wall thickening. High density circular structure adjacentto the right aspect of the anal canal presumably represents a seton. LYMPH NODES: No significant retroperitoneal or pelvic sidewalladenopathy. VASCULATURE: Extensive atherosclerotic calcification with fusiformaneurysmal dilatation of the infrarenal abdominal aorta reaching 2.4 cm. PELVIC ORGANS: No free fluid. Decrease in the left ovarian cyst, now 2.2cm, previously 2.9 cm. MUSCULOSKELETAL: Several decubitus ulcers are identified posteriorly inthe pelvis, overlying the right ischium, right perianal region, and rightpresacral space. Subcutaneous gas and skin thickening noted. No drainablefluid collections. Generalized osteopenia limits exam. Previous thoracal lumbar stabilization withmultilevel scoliosis and spondylosis. There is poor definition of theposterior cortex of the sacrococcygeal region adjacent to the decubitusulcer suspicious for developing osteomyelitis. Irregularity of the right ischium noted, with associatedchronic bony sclerosis, as well as periosteal reaction compatible withchronic osteomyelitis. Soft tissue overlying the left ischium notedwithout fluid collections or associated bony destruction/sclerosis. Advanced degenerative changes in the rightshoulder with moderate changes in the left shoulder and both hips. IMPRESSION: 1. Multiple decubitus ulcers, with CT findings suspicious for acuteosteomyelitis involving the coccyx, and chronic osteomyelitis involvingthe right ischium. No drainable fluid collections. 2. Cristobal catheter within the vagina. 3. Nonobstructing right renal pelvis stones, including 13 mm right UPJcalculus. 4. Anal wall thickening is likely related to chronic inflammation.Follow-up advised to exclude underlying lesions. Tube/Catheter positioning was called to Chago Meadows PA-C by Dr. Mirza. Hayde on 05/10/2024 5:18 PM CDT. Chago Meadows PA-C IMG CT ORDERABLES * EKG 12-lead, tracing only (05/10/2024 3:43 PM CDT) Pathologist [facility] Systolic Blood Pressure mmHg RADIOLOGY RESULTS Diastolic Blood Pressure mmHg RADIOLOGY RESULTS Ventricular Rate 103 BPM RAD IOLOGY RESULTS Atrial Rate 103 BPM RADIOLOG Y RESULTS [place] Interval 144 ms RADIOLOG Y RESULTS QRS Duration 72 ms RADIOLO GY RESULTS QT 340 ms RADIOLOGY RESULTS QTc 445 ms RADIOLOGY RESULTS P [place] 65 degrees RADIOLOGY RESULTS R AXIS 25 degrees RADIOLOGY RESULTS T [place] 50 degrees RADIOLOGY RESULTS Interpretation ECG Sinus tachycardia Possible Left atrial enlargement Borderline ECG When compared with ECG of 12-Mar-2024 11:32, Right bundle branch block is no longer Present Confirmed by GENERATED REPORT, COMPUTER ([id number]), mapping editor BHARATH LYNN ([id number]) on 05/10/2024 3:50:14 PM RADIOLOGY RESULTS 05/10/2024 3:43 PM CDT 05/10/2024 3:50 PM CDT Chago Meadows PA-C ECG ORDERABLES RADIOLOGY RESULTS * Blood Culture Peripheral Blood (05/10/2024 2:48 PM CDT) [facility] Culture No Growth 05/15/2024 3:31 PM CDT [facility] Blood BLOOD SPECIMEN / Unknown Venipuncture / Unknown 05/10/2024 2:48 PM CDT 05/10/2024 3:17 PM CDT Chago Meadows PA-C LAB - MICRO GENERAL ORDERABLES [facility] Inf. Diseases Diag. Lab [address] [facility], [address] [place] [id number] * Symptomatic Influenza A/B, RSV, & SARS-CoV2 PCR (COVID-19) Nasopharyngeal (05/10/2024 2:46 PM CDT) [facility] Influenza A PCR Negative Negative 05/10/2024 4:08 PM CDT LABORATORY Influenza B PCR Negative Negative 05/10/2024 4:08 PM CDT LABORATORY RSV PCR Negative Negative 05/10/2024 4:08 PM CDT LABORATORY SARS CoV2 PCR Negative Negative 05/10/2024 4:08 PM CDT LABORATORY Comment:NEGATIVE: SARS-CoV-2 (COVID-19) RNA not detected, presumed negative. Swab NASOPHARYNGEAL STRUCTURE / Unknown Non-blood Collection / Unknown 05/10/2024 2:46 PM CDT 05/10/2024 3:16 PM CDT Narrative LABORATORY - 05/10/2024 4:08 PM CDT Testing was performed using the Xpert Xpress CoV2/Flu/RSV Assay on the [employer]pert Instrument. This test should be ordered for [...] management. This test was validated by the [facility]. These laboratories are certified under the Clinical Laboratory Improvement Amendments of 1988 (CLIA-88) as qualified to perform high complexity laboratory testing. Chago Meadows PA-C LAB - MICRO GENERAL ORDERABLES LABORATORY [facility] [address] 1[address], [address] [place] [address], [facility] [phone] * (ABNORMAL) Lipase (05/10/2024 2:44 PM CDT) Lipase 11(L) 13 - 60 U/L 05/10/2024 3:41 PM CDT LABORATORY Blood BLOOD SPECIMEN / Unknown Venipuncture / Unknown 05/10/2024 2:44 PM CDT 05/10/2024 3:17 PM CDT Chago Meadows PA-C LAB - BLOOD ORDERABL ES LABORATORY [facility] [address], [address] [place] [address], [facility] [phone] * (ABNORMAL) CRP inflammation (05/10/2024 2:44 PM CDT) CRP Inflammation 61.98(H) <5.00 mg/L 05/10/2024 7:41 PM CDT LABORATORY Blood BLOOD SPECIMEN / Unknown Venipuncture / Unknown 05/10/2024 2:44 PM CDT 05/10/2024 3:17 PM CDT Ambar Joseph MD LAB - BLOOD ORDERABL ES LABORATORY [facility] [address], [address] [place] [address], [facility] [phone] * (ABNORMAL) Comprehensive metabolic panel (05/10/2024 2:44 PM CDT) Sodium 140 135 - 145 mmol/L 05/10/2024 3:41 PM CDT LABORATORY Potassium 3.3(L) 3.4 - 5.3 mmol/L 05/10/2024 3:41 PM CDT LABORATORY Carbon Dioxide (CO2) 28 22 - 29 mmol/L 05/10/2024 3:41 PM CDT LABORATORY Anion Gap 10 7 - 15 mmol/L 05/10/2024 3:41 PM CDT LABORATORY Urea Nitrogen 16.0 8.0 - 23.0 mg/dL 05/10/2024 3:41 PM CDT LABORATORY Creatinine 0.26(L) 0.51 - 0.95 mg/dL 05/10/2024 3:41 PM CDT LABORATORY GFR Estimate >90 >60 mL/min/1.7 3m2 05/10/2024 3:41 PM CDT LABORATORY Comment:eGFR calculated us2020 CKD-EPI equation. Calcium 8.8 8.8 - 10.4 mg/dL 05/10/2024 3:41 PM CDT LABORATORY Comment:Reference intervals for this test were updated on 04/27/2024 to reflect our healthy population more accurately. There may be differences in the flagging of prior results with similar values performed with this method. Those prior results can be interpreted in the context of the updated reference intervals. Chloride 102 98 - 107 mmol/L 05/10/2024 3:41 PM CDT LABORATORY Glucose 93 70 - 99 mg/dL 05/10/2024 3:41 PM CDT LABORATORY Alkaline Phosphatase 101 40 - 150 U/L 05/10/2024 3:41 PM CDT LABORATORY AST 17 0 - 45 U/L 05/10/2024 3:41 PM CDT LABORATORY ALT 9 0 - 50 U/L 05/10/2024 3:41 PM CDT LABORATORY Protein Total 5.2(L) 6.4 - 8.3 g/dL 05/10/2024 3:41 PM CDT LABORATORY Albumin 3.2(L) 3.5 - 5.2 g/dL 05/10/2024 3:41 PM CDT LABORATORY Bilirubin Total 0.4 <=1.2 mg/dL 05/10/2024 3:41 PM CDT LABORATORY Blood BLOOD SPECIMEN / Unknown Venipuncture / Unknown 05/10/2024 2:44 PM CDT 05/10/2024 3:17 PM CDT Chago Meadows PA-C LAB - BLOOD ORDERABL ES LABORATORY [facility] [address], [address] [place] [address], [facility] [phone] * (ABNORMAL) iStat Gases (lactate) venous, POCT (05/10/2024 2:40 PM CDT) Lactic Acid POCT 1.1 <=2.0 mmol/L 05/10/2024 3:19 PM CDT LABORATORY POC Comment:--- Bicarbonate Venous POCT 30(H) 21 - 28 mmol/L 05/10/2024 3:19 PM CDT LABORATORY POC Comment:--- O2 Sat, Venous POCT 62(L) 70 - 75 % 05/10/2024 3:19 PM CDT LABORATORY POC Comment:--- pCO2 Venous POCT 43 40 - 50 mm Hg 05/10/2024 3:19 PM CDT LABORATORY POC Comment:--- pH Venous POCT 7.45(H) 7.32 - 7.43 05/10/2024 3:19 PM CDT LABORATORY POC Comment:--- pO2 Venous POCT 31 25 - 47 mm Hg 05/10/2024 3:19 PM CDT LABORATORY POC Comment:--- Base Excess/Deficit (+/-) POCT 5.0(H) -3.0 - 3.0 mmol/L 05/10/2024 3:19 PM CDT LABORATORY POC Comment:--- Blood, venous BLOOD SPECIMEN / Unknown 05/10/2024 2:40 PM CDT 05/10/2024 3:19 PM CDT [place] [facility] POCT LABORATORY POC [facility] 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 Intubation to prevent or reverse respiratory instability may be performed. Question Answer Comments Code status determined by: Discussion with patie nt/ legal decision maker * No CPR- Pre-arrest intubation OK Date Activated Date Inactivated Comments 05/18/2024 4:42 PM 05/18/2024 7:19 PM No attempts to restore cardiac function following arrest. Intubation to prevent or reverse respiratory instability may be performed. Question Answer Comments Code status determined by: Discussion with patie nt/ legal decision maker * No CPR- Do NOT Intubate Date Activated Date Inactivated Comments 05/10/2024 8:39 PM 05/18/2024 4:42 PM NO basic or a dvanced life-sustaining interventions are performed Question Answer Comments Code status determined by: Discussion with patie nt/ legal decision maker * No CPR- Pre-arrest intubation OK Date Activated Date Inactivated Comments 03/06/2024 5:31 AM 03/14/2024 7:18 PM No attempts t o restore cardiac function following arrest. Intubation to prevent or reverse respiratory instability may be performed. Question Answer Comments Code status determined by: Discussion with patie nt/ legal decision maker * Full Code Date Activated Date Inactivated Comments 12/02/2013 2:28 PM 12/15/2013 6:18 PM Care Teams Vendor Quality Supervisor Relationship Specialty Start Date End Date Flo Mckeon MD [address] [address] PCP - General Family Medicine 03/09/24
--- OUTSIDE RECORDS SUMMARY | 2024-07-03 18:29 | XMS_ITS | Clinical Summary ---
Author Organization [place] Address [facility] [place] [address] Care Team Providers Care Hydraulic Miner Name Role Phone Flo Mckeon MD Primary Care Provider [phone] Allergies Active Allergy Reactions Criticality Noted Date [...] Encounters Date Type Department Care Team Description 05/21/2024 Telephone [facility] [address] [facility] [address] [place] [address] Leela Degroot APRN THREAD SEPARATOR Prior Auth - Medication (Pregabalin - Denied) 05/21/2024 Telephone [facility] [address] [facility] [address] [place] [phone] Leela Degroot APRN THREAD SEPARATOR Prior Auth - Medication (Buprenorphine patch - Approved) 05/18/2024 5:30 PM CDT Anesthesia Event [facility] [address], [address] [phone] Pool Palacios DO Van Kirk, Patrick, MD 05/18/2024 5:29 PM CDT - 05/18/2024 8:14 PM CDT Surgery [facility] [address], [address] [phone] Peter Krishnamurthy MD Laparoscopic diverting colostomy 05/18/[address] [facility] [address] [place] [phone] Scan, Non-Provider 05/10/2024 2:20 PM CDT - 05/26/2024 3:13 PM CDT Hospital Encounter [facility] General Surgery [address] [facility] [place] [phone] Nemesio Davila MD Powell, Tracy Alan, MD Neshangi, Srivani, MD Chronic osteomyelitis (H) (Primary Dx); Acute cystitis with hematuria; Osteomyelitis of coccyx (H); Septic shock (H); Drug-induced constipation; Loose stools; Chronic pain syndrome; Chronic atrial fibrillation (H); Pressure injury of skin, unspecified injury stage, unspecified location [L89.90]; Attention to colostomy (H) [Z43.3] Discharge Disposition: [facility] Facility 05/10/2024 Travel from Last 3 Months Social History [...] 05/10/2024 8:52 PM CDT Plan of Treatment Health Maintenance Due Date Last Done Comments ADVANCE CARE PLANNING 1945 ANNUAL REVIEW OF HM ORDERS 1945 DEXA 1945 COVID-19 Vaccine (#1) 12/31/1951 Pneumococcal Vaccine: 65+ Years (1 of 2 - PCV) 1952 HEPATITIS C SCREENING 1964 ZOSTER IMMUNIZATION (1 of 2) 1965 LIPID 1986 FALL RISK ASSESSMENT 12/31/2011 MEDICARE ANNUAL WELLNESS VISIT 12/31/2011 RSV VACCINE (1 - 1-dose 75+ series) 2021 PHQ-2 (once per calendar year) 2023 INFLUENZA VACCINE (#1) 2024 07/18/2009 GLUCOSE 06/03/2027 06/03/2024, 08/2 10/2023, 05/21/2024, Additional history exists DTAP/TDAP/TD IMMUNIZATION (4 - Td or Tdap) 04/22/2028 04/22/2018, 04/22/2015, 04/22/2015 HPV IMMUNIZATION Aged Out No longer [...] 06/07/2024 9:37 PM CDT [facility] Specific [place] Urine 1.011 1.003 - 1.035 06/07/2024 9:37 [...] LAB - U RINE ORDERABLES [facility] LAB[facility] Core Lab [address] [facility], [address] [place] [phone] * (ABNORMAL) Urine Culture (06/07/2024 [...] coli Cefazolin DAWSON <=4 ug/mL: Susceptible Comment:Cefazolin OR C breakpoints are for the treatment of [...] Provider LAB - M ICRO GENERAL ORDERABLES Performing Organization Address City/[facility]/ZIP Co de Phone Number UU IDD LABORATORY [facility] Inf. Diseases Diag. Lab [address] [facility], [address] [place], [place] [phone] [place] [address] * Trip Charge - LAB ONLY (06/03/2024 12:01 PM CDT) Only the most recent of2 resultswithin the time period is included. Other TOPOGRAPHY UNKNOWN / Unknown Billing only / Unknown 06/03/2024 12:01 PM CDT 06/03/2024 2:00 PM CDT Bharath Kelly MD LAB CHARGE PERFORMAB LES Performing Organization Address City/[facility]/ZIP Co de Phone Number [facility] [address] * (ABNORMAL) Basic Metabolic Panel No Glucose [...] LAB - BLOOD ORDERABL ES UU LABORATORY [facility] [place] Core Lab [address] [facility], [address] [phone] * (ABNORMAL) Glucose (OUTREACH) (06/03/2024 12:01 PM CDT) Only the most recent of2 resultswithin the time period is included. Glucose 227(H) 70 - 99 mg/dL 06/03/2024 4:09 PM CDT [facility] Blood STRUCTURE OF LEFT UPPER LIMB / Unknown Venipuncture / Unknown 06/03/2024 12:01 PM CDT 06/03/2024 2:00 PM CDT Bharath Kelly MD LAB - BLOOD ORDERABL ES UU LABORAT[facility] [place] Core Lab [address] [facility], [address] [place] [address], [facility] * (ABNORMAL) CBC with platelets and differential (06/03/2024 12:01 PM CDT) Only the most recent of2 resultswithin the time period is included. WBC Count 14.5(H) 4.0 - 11.0 10e3/uL [...] LAB - BLOOD ORDERABL ES UU LABORATORY [facility] [place] Core Lab [address] [facility], [address] [phone] * (ABNORMAL) CBC with platelets [...] Credentialed Provider LAB - B LOOD ORDERABLES U LABORATORY [facility] [place] Core Lab [address] [facility], [address] [place] [address], [facility] * Extra Green Top Tube (LAB USE ONLY) (05/24/2024 7:31 AM CDT) Hold Specimen 0 05/24/2024 8:21 AM CDT LABORATORY Blood STRUCTURE OF RIGHT UPPER LIMB / Unknown Venipuncture / Unknown 05/24/2024 7:31 AM CDT 05/24/2024 8:09 AM CDT Ambar Joseph MD LAB - BLOOD ORDERABL ES LABORATORY [facility] [address] floor, [address] [place] [address], [facility] [phone] * Platelet count (05/24/2024 7:31 AM CDT) Only the most recent of3 resultswithin the time period is included. Platelet Count 286 150 - 450 10e3/uL 05/24/2024 8:13 AM [facility] Blood STRUCTURE OF RIGHT UPPER LIMB / Unknown Venipuncture / Unknown 05/24/2024 7:31 AM CDT 05/24/2024 8:10 AM CDT Peter Krishnamurthy MD LAB - BLOOD ORDERABL ES LABORATORY [facility] Lab [address] floor, [address] [place] [address], [facility] [phone] * (ABNORMAL) Basic metabolic panel (05/21/2024 7:05 AM CDT) Only the most recent of6 resultswithin the time period is included. Sodium 143 135 - 145 mmol/L 05/21/2024 7:44 AM [facility] Potassium 3.4 3.4 - 5.3 mmol/L 05/21/2024 7:44 AM [facility] Chloride 104 98 - 107 mmol/L 05/21/2024 7:44 AM [facility] Carbon Dioxide (CO2) 32(H) 22 - 29 mmol/L 05/21/2024 7:44 AM [facility] Anion Gap 7 7 - 15 mmol/L 05/21/2024 7:44 AM [facility] Urea Nitrogen 31.0(H) 8.0 - 23.0 mg/dL 05/21/2024 7:44 AM [facility] Creatinine 0.44(L) 0.51 - 0.95 mg/dL 05/21/2024 7:44 AM [facility] GFR Estimate >90 >60 mL/min/1.7 3m2 05/21/2024 7:44 AM [facility] Comment:eGFR calculated us2020 CKD-EPI equation. Calcium 8.6(L) 8.8 - 10.4 mg/dL 05/21/2024 7:44 AM [facility] Comment:Reference intervals for this test were [...] PA-C LAB - BLOOD ORDERA BLES LABORATORY [facility] [address], [address] [place] [address], [facility] [phone] * (ABNORMAL) Glucose by meter (05/19/2024 10:21 PM CDT) GLUCOSE BY METER POCT 157(H) 70 - 99 mg/dL 05/19/2024 10:28 PM CDT LABORATORY POC Blood, Capillary BLOOD SPECIMEN / Unknown 05/19/2024 10:21 PM CDT 05/19/2024 10:28 PM CDT Ambar Joseph MD LAB - BEAKER POCT LABORATORY [facility] Lab [address], [address] [place] [address], [facility] * (ABNORMAL) Phosphorus (05/19/2024 6:06 AM CDT) Phosphorus 4.8(H) 2.5 - 4.5 mg/dL 05/19/2024 7:15 AM CDT LABORATORY Blood STRUCTURE OF RIGHT UPPER LIMB / Unknown Venipuncture / Unknown 05/19/2024 6:06 AM CDT 05/19/2024 6:34 AM CDT Peter Krishnamurthy MD LAB - BLOOD ORDERABL ES LABORATORY [facility] [address] floor, [address] [place] [phone], [facility] [phone] * Magnesium (05/19/2024 6:06 AM CDT) Magnesium 1.9 1.7 - 2.3 mg/dL 05/19/2024 7:15 AM CDT LABORATORY Blood STRUCTURE OF RIGHT UPPER LIMB / Unknown Venipuncture / Unknown 05/19/2024 6:06 AM CDT 05/19/2024 6:34 AM CDT Peter Krishnamurthy MD LAB - BLOOD ORDERABL ES LABORATORY [facility] [address], [address] [place] [address], [facility] [phone] * ANE AIRWAY ETT PERFORMABLE (05/18/2024 5:40 PM CDT) Narrative Meri Song - 05/18/2024 5:40 PM CDT Meri Song ? 05/18/2024 ??6:14 PM Airway ? Patient location during procedure: OR ? Procedure Start/Stop Times: 05/18/2024 5:40 PM Staff - ? Anesthesiologist: ??Pool Palacios, DO ? MATHEMATICAL ENGINEERING TECHNICIAN: Mallika Foster APRN CRNA ? Other Anesthesia Staff: Meri Song ? Performed By: APRIL and MATHEMATICAL ENGINEERING TECHNICIAN Consent for Airway ? Urgency: elective Indications [...] Time: 05/18/2024 5:40 PM Pool Palacios DO [place] ANESTHESIA * Adult Type and Screen (05/18/2024 11:18 AM CDT) ABO/RH(D) A POS 05/18/2024 7:11 AM CDT BLOOD BANK Antibody Screen Negative Negative 05/18/2024 7:11 AM CDT BLOOD BANK SPECIMEN EXPIRATION DATE [id number] 05/18/2024 7:11 AM CDT BLOOD BANK Blood BLOOD SPECIMEN / Unknown Venipuncture / Unknown 05/18/2024 11:18 AM CDT 05/18/2024 11:35 AM CDT Janak Robledo PA-C LAB - BLOOD BANK T EST ORDER Performing Organization Address City/[facility]/ZIP Co de Phone Number BLOOD BANK [address] [place] [address], [facility] * (ABNORMAL) Hemoglobin (05/18/2024 11:18 AM CDT) Hemoglobin 10.2(L) 11.7 - 15.7 g/dL 05/18/2024 11:39 AM CDT LABORATORY Blood BLOOD SPECIMEN / Unknown Venipuncture / Unknown 05/18/2024 11:18 AM CDT 05/18/2024 11:35 AM CDT Janak Robledo PA-C LAB - BLOOD ORDERA BLES LABORATORY [facility] Lab [address], [address] [place] [address], [facility] [phone] * (ABNORMAL) CK total (05/18/2024 11:18 AM CDT) Only the most recent of2 resultswithin the time period is included. CK 12(L) 26 - 192 U/L 05/18/2024 12:01 PM CDT LABORATORY Blood BLOOD SPECIMEN / Unknown Venipuncture / Unknown 05/18/2024 11:18 AM CDT 05/18/2024 11:35 AM CDT Peter Krishnamurthy MD LAB - BLOOD ORDERABL ES LABORATORY [facility] Lab [address], [address] [place] [address], [facility] [phone] * Single Lumen Midline Placement (05/18/2024 9:15 AM CDT) Narrative Dede Downing RN - 05/18/2024 9:15 AM CDT Dede Downing RN ? 05/18/2024 ??9:19 AM [facility] Single Lumen Midline Placement Date/Time: 05/18/2024 9:15 AM Performed by: Dede Downing RN Authorized by: Janak Robledo, WIL ??Indications: vascular access UNIVERSAL PROTOCOL Site Marked: [...] procedure a time out was called ?? Organ Protocol: the Joint Commission Organ Protocol was followed ?? Preparation: Patient was [...] size: 4 Fr Brand: Bard Lot number: [id number] Placement method: MST and ultrasound Number of [...] and Toxins A/B EIA (05/14/2024 4:01 PMCDT) Pathologist [facility] C Difficile Toxin B by PCR Negative [...] LABORATORY - 05/14/2024 7:39 PM CDT The Gogiro Xpert C. difficile Assay, performed on the [employer]ogiro GeneXpert?? Instrument Systems, is a qualitative in vitro [...] MICRO GENERA L ORDERABLES UU IDD LAB[facility]ATORY [facility] Inf. Diseases Diag. Lab [address] [facility], [address] [place] [address], [facility] * (ABNORMAL) WBC count (05/11/2024 10:55 AM CDT) WBC Count 13.4(H) 4.0 - 11.0 10e3/uL 05/11/2024 11:27 AM CDT LABORATORY Blood STRUCTURE OF RIGHT UPPER LIMB / Unknown Venipuncture / Unknown 05/11/2024 10:55 AM CDT 05/11/2024 11:24 AM CDT Ambar Joseph MD LAB - BLOOD ORDERABL ES LABORATORY [facility] [address], [address] [place] [address], [facility] [phone] * CT Chest/Abdomen/Pelvis w Contrast (05/10/2024 4:42 [...] CDT EXAM: CT CHEST/ABDOMEN/PELVIS W CONTRAST LOCATION: [facility] DATE: 05/10/2024 INDICATION: Fever, paraplegia, abdominal pain [...] 05/10/2024 EXAM: CT CHEST/ABDOMEN/PELVIS W CONTRAST LOCATION: [facility] DATE: 05/10/2024 INDICATION: Fever, paraplegia, abdominal pain [...] to Chago Meadows PA-C by Dr. Mirza. [facility] on 05/10/2024 5:18 PM CDT. Chago Meadows PA-C IMG CT ORDERABLES * EKG 12-lead, tracing only (05/10/2024 3:43 PM CDT) Systolic Blood Pressure mmHg RADIOLOGY RESULTS Diastolic Blood Pressure mmHg RADIOLOGY RESULTS Ventricular Rate 103 BPM RAD IOLOGY RESULTS Atrial Rate 103 BPM RADIOLOG Y RESULTS AK Interval 144 ms RADIOLOG Y RESULTS QRS Duration 72 ms RADIOLO GY RESULTS QT 340 ms RADIOLOGY RESULTS QTc 445 ms RADIOLOGY RESULTS P [place] 65 degrees RADIOLOGY RESULTS R AXIS 25 degrees RADIOLOGY RESULTS T [place] 50 degrees RADIOLOGY RESULTS Interpretation ECG Sinus tachycardia Possible Left atrial enlargement Borderline ECG When compared with ECG of 12-Mar-2024 11:32, Right bundle branch block is no longer Present Confirmed by GENERATED REPORT, COMPUTER ([id number]), offset duplicating machine operator BHARATH LYNN ([id number]) on 05/10/2024 3:50:14 PM RADIOLOGY RESULTS 05/10/2024 3:43 PM CDT 05/10/2024 3:50 PM CDT Chago Meadows PA-C ECG ORDERABLES RADIOLOGY RESULTS * Blood Culture Peripheral Blood (05/10/2024 2:48 PM CDT) Culture No Growth 05/15/2024 3:31 PM CDT UU IDD LABORATORY Blood BLOOD SPECIMEN / Unknown Venipuncture / Unknown 05/10/2024 2:48 PM CDT 05/10/2024 3:17 PM CDT Chago Meadows PA-C LAB - MICRO GENERAL ORDERABLES UU IDD [facility]AT[facility] Inf. Diseases Diag. Lab [address] [facility], [address] [place], [place] [phone] * Symptomatic Influenza A/B, RSV, & SARS-CoV2 PCR (COVID-19) Nasopharyngeal (05/10/2024 2:46 PM CDT) Influenza A PCR Negative Negative 05/10/2024 4:08 [...] the Xpert Xpress CoV2/Flu/RSV Assay on the Gogiro GeneXpert Instrument. This test should be ordered [...] management. This test was validated by the [facility]. These laboratories are certified under the Clinical Laboratory Improvement Amendments of 1988 (CLIA-88) as qualified to perform high complexity laboratory testing. Chago Meadows PA-C LAB - MICRO GENERAL ORDERABLES LABORATORY [facility] [address], [address] [address], [facility] [phone] * (ABNORMAL) Lipase (05/10/2024 2:44 PM CDT) Pathologist [facility] Lipase 11(L) 13 - 60 U/L 05/10/2024 3:41 PM CDT LABORATORY Blood BLOOD SPECIMEN / Unknown Venipuncture / Unknown 05/10/2024 2:44 PM CDT 05/10/2024 3:17 PM CDT Chago Meadows PA-C LAB - BLOOD ORDERABL ES LABORATORY [facility] [address], [address] [place] [address], [place] [phone] * (ABNORMAL) CRP inflammation (05/10/2024 2:44 PM CDT) CRP Inflammation 61.98(H) <5.00 mg/L 05/10/2024 7:41 PM CDT LABORATORY Blood BLOOD SPECIMEN / Unknown Venipuncture / Unknown 05/10/2024 2:44 PM CDT 05/10/2024 3:17 PM CDT Ambar Joseph MD LAB - BLOOD ORDERABL ES LABORATORY [facility] [address], [address] [place] [address], [place] [phone] * (ABNORMAL) Comprehensive metabolic panel (05/10/2024 2:44 [...] 05/10/2024 3:41 PM CDT LABORATORY Comment:eGFR calculated usin 2020 CKD-EPI equation. Calcium 8.8 8.8 - 10.4 [...] PA-C LAB - BLOOD ORDERABL ES LABORATORY [facility] [address], [address] [place] [address], [facility] [phone] * (ABNORMAL) iStat Gases (lactate) venous, POCT [...] CDT 05/10/2024 3:19 PM CDT [place] 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
[2024-07-03 18:30] LABS: WBC Urine >100 (0-5)
--- OUTSIDE RECORDS SUMMARY | 2024-07-03 18:30 | XMS_ITS | Encounter Summary ---
Author Organization [facility] [place] [facility] Address [address] [facility] [place] [address] Care Team Providers Care Scientist Electronics Name Role Phone Flo Mckeon MD Primary Care Provider [phone] Reason for Visit * Reason Comments Wound Infection * Auth/Cert Specialty Diagnoses / Procedures Referred By Contac t Referred To Contact EMERGENCY MEDICINE Diagnoses Acute cystitis with hematuria Osteomyelitis of coccyx (H) Emergency Dept [address] [place] [address] Referral ID Status Reason Start Date Expiration Date Visits Re quested Visits Authorized [id number] 1 1 Encounter Details Date Type Department Care Team (Late st Contact Info) Description 05/10/2024 2:20 PM CDT - 05/26/2024 3:13 PM CDT Hospital Encounter [facility] General Surgery [address] [place] [address] Nemesio Davila MD [facility] [address] [place] [address] Natasha Selby MD [facility] [address] [place] [address] Ambar Joseph MD [address] [id number] Chronic osteomyelitis (H) (Primary Dx); Acute cystitis with hematuria; Osteomyelitis of coccyx (H); Septic shock (H); Drug-induced constipation; Loose stools; Chronic pain syndrome; Chronic atrial fibrillation (H); Pressure injury of skin, unspecified injury stage, unspecified location [L89.90]; Attention to colostomy (H) [Z43.3] Discharge Disposition: [facility] Facility Social History Tobacco Use Types Packs/Day [...] Mass Index 26.31 05/10/2024 8:52 PM CDT documented in this encounter Discharge Summaries * Forrest Garcia DO - 05/26/2024 1:09 PM CDT [facility] Hospitalist Discharge Summary Date of Admission: 05/10/2024 Date of Discharge: 05/26/2024 Discharging Provider: Forrest Garcia DO Discharge Service: Hospitalist Service Discharge Diagnoses Sepsis likely from infected decubitus ulcer Osteomyelitis involving the coccyx Chronic osteomyelitis involving the right ischium Chronic decubitus ulcer History of MRSA infection Urinary tract infection-catheter related Neurogenic bladder with chronic indwelling Cristobal catheter Chronic constipation with anal wall thickening with large rectal fecal burden on imaging Physical deconditioning from medical illness, chronic debility Transverse myelitis with paraplegia Chronic pain on narcotics Moderate atherosclerotic disease Chronic heart failure with preserved EF [last EF greater than 75% from 01/14/2023] Atrial fibrillation not on anticoagulation. Hypertension Hypokalemia. Resolved Obstructive sleep apnea Rheumatoid arthritis Chronic Anemia likely secondary to chronic disease Incidental renal stones. Diabetes mellitus with a hemoglobin A1c of 6.6 Clinically Significant Risk Factors # DMII: A1C = 6.6 % (Ref range: <5.7 %) within past 6 months # Overweight: Estimated body mass index is 26.31 kg/m?? as calculated from the following: Height as of this encounter: 1.524 m (5'). Weight as of this encounter: 61.1 kg (134 lb 11.2 oz). Follow-ups Needed After Discharge Follow-up Appointments Follow Up and recommended labs and tests Follow up with group home physician. The following labs/tests are recommended: CBC and BMP in 3-5 days. Follow up with PCP 1-2 weeks after TCU discharge Follow up with CRS as recommended Follow-up and recommended labs and tests Follow up with primary care provider, Flo Mckeon, within 7 days for hospital follow- up. No follow up labs or test are needed. Review pain meds check labs if needed. Patient will also need a preop in near future. Follow up with FROILAN Robles at [facility] clinic on 06/08/24 at 11:00 am for a stoma check. Follow up with Dr. Alfredo at [facility] clinic on 07/07/24 at 1:40 pm for a post-op visit. Call the office at [phone] if you need to reschedule either appointment. Clinic address: [facility] [address] [address] Patient to contact the CRS office at [phone] if not has an appointment already. Unresulted Labs Ordered in the Past 30 Days of this Admission No orders found from 04/10/2024 to 05/11/2024. Discharge Disposition Discharged to short-term care facility Condition at discharge: Stable Hospital Course Prerna Major is a 78 year old female with medical history of history of transverse myelitis, paraplegia, neurogenic bladder with chronic indwelling Cristobal catheter, decubitus ulcers with chronic osteomyelitis, RA on chronic prednisone therapy, HUI, HFpEF, atrial fibrillation, hypertension, gastric ulcer presented to the ED with weakness. Workup revealed acute osteomyelitis of the coccyx. Patient underwent diverting colostomy on 05/18/2024 for improved wound hygiene # Sepsis likely from infected decubitus ulcer # Osteomyelitis involving the coccyx # Chronic osteomyelitis involving the right ischium. # Chronic decubitus ulcer. # History of MRSA infection. -Recent admission at [facility] between 03/07-03/14/2024 for septic shock secondary to E. coli UTI with bacteremia, readmitted at [facility] on 03/21/2024 with severe sepsis and another admission at [facility] between 03/24-03/31 2024 -Presented here with abdominal discomfort associated with nausea and fever -CT abdomen and pelvis on 05/10/2024 showed multiple decubitus ulcer, suspicious for acute osteomyelitis involving the coccyx and chronic osteomyelitis involving the right ischium. No drainable fluid collection -General Surgery also followed, they recommended diverting colostomy. No need for debridement. -Infectious disease also followed - Initially on IV meropenem, subsequently transitioned to Augmentin and doxycycline. Completed antibiotic course per ID recommendation on 05/20/2024. - Underwent diverting colostomy on 05/18/2024 - Continue low fiber diet -Pain control as needed, pain team following, patient still having significant pain for dressing changes and she does not think she will have adequate help at home to achieve this -Discontinued IV narcotics. Continue as needed oral Dilaudid -Patient agreed to consider TCU. Discussed with social work and updated -Lovenox for DVT prophylaxis -Wound care team following, appreciate recs. # Urinary tract infection-catheter related. # Neurogenic bladder with chronic indwelling Cristobal catheter -Catheter changed in ED. -UA large leukocyte esterase, 123 WBCs, few bacteria and WBC clumps present. -Urine culture with no growth, however patient already on antibiotics at that time as above. # Anal wall thickening with large rectal fecal burden on imaging # Chronic constipation. -Prior to admission on narcotics, patient reluctant for bowel meds as reports difficulty with woundcare for decubitus ulcer. -CT abdomen and pelvis with no small bowel obstruction. Large rectal fecal burden. Anal wall thickening is likely related to chronic inflammation. -Scheduled bowel meds. As needed bowel meds, suppository ordered. -Minimize narcotic use. -Colorectal surgery following # Physical deconditioning from medical illness, chronic debility. # Transverse myelitis with paraplegia. Lives at home with her daughter, has home care. Reports mostly bedbound, uses motorized wheelchair as needed. Now reporting generalized weakness. -Address medical issues as discussed above. -Fall precautions. -PT, OT evaluation # Chronic pain on narcotics. -Patient has chronic pain issues exacerbated by acute issues as above. -Pain team following -Continue Tylenol, Atarax and gabapentin. -Dilaudid as mentioned above -Please see progress note from pain team from today, i.e. 05/21/2024 # Moderate atherosclerotic disease. # Chronic heart failure with preserved EF [last EF greater than 75% from 01/14/2023] # Atrial fibrillation not on anticoagulation. # Hypertension - BUSINESS MANAGEMENT CONSULTANT Lasix held on admission. Restarted on 05/12/2024 - Continue BUSINESS MANAGEMENT CONSULTANT Toprol, switch to immediate release 25 mg twice daily with hold parameters. - BUSINESS MANAGEMENT CONSULTANT not on aspirin or statin. Defer further cardiac workup to outpatient. # Hypokalemia-resolved -Replace per protocol # Obstructive sleep apnea -Uses BiPAP as outpt. Has chronic CO2 retention. -BiPAP per home settings. # Rheumatoid arthritis -Continue on BUSINESS MANAGEMENT CONSULTANT on prednisone 10 mg daily. # Chronic Anemia likely secondary to chronic disease. -Baseline hemoglobin 9-10 range. -Hemoglobin at around previous baseline. # Incidental renal stones. CT - No hydronephrosis. Nonobstructive right renal pelvic stones including 13 mm right UPJ calculus. - Recommend follow-up with urology as outpatient if symptomatic. # Diabetes mellitus with a hemoglobin A1c of 6.6. -BUSINESS MANAGEMENT CONSULTANT not on meds. BS are 94 - 128 -Blood sugar adequately controlled at the moment Consultations This Hospital Stay INFECTIOUS DISEASES IP CONSULT SURGERY GENERAL IP CONSULT WOUND OSTOMY CONTINENCE NURSE IP CONSULT CARE MANAGEMENT / SOCIAL WORK IP CONSULT NUTRITION SERVICES ADULT IP CONSULT VASCULAR ACCESS ADULT IP CONSULT PAIN MANAGEMENT ADULT IP CONSULT WOUND OSTOMY CONTINENCE NURSE IP CONSULT VASCULAR ACCESS ADULT IP CONSULT SURGERY GENERAL IP CONSULT COLORECTAL SURGERY IP CONSULT COLORECTAL SURGERY IP CONSULT WOUND OSTOMY CONTINENCE NURSE IP CONSULT VASCULAR ACCESS ADULT IP CONSULT VASCULAR ACCESS ADULT IP CONSULT VASCULAR ACCESS ADULT IP CONSULT PAIN MANAGEMENT ADULT IP CONSULT PHYSICAL THERAPY ADULT IP CONSULT OCCUPATIONAL THERAPY ADULT IP CONSULT PHARMACY LIAISON FOR MEDICATION COVERAGE CONSULT PHYSICAL THERAPY ADULT IP CONSULT OCCUPATIONAL THERAPY ADULT IP CONSULT PHYSICAL THERAPY ADULT IP CONSULT Code Status No CPR- Pre-arrest intubation OK Time Spent on this Encounter I, Forrest Garcia DO, personally saw the patient today and spent greater than 30 minutes discharging this patient. Forrest Garcia DO [address] [address] Physical Exam Vital Signs: Temp: 98.9 ??F (37.2 ??C) Temp src: Oral BP: 122/48 Pulse: 81 Resp: 18 SpO2: 94 % O2 Device: None (Room air) Weight: 134 lbs 11.22 oz General Appearance: Resting comfortably. NAD Respiratory: No respiratory distress Cardiovascular: RRR GI: Non-distended. Ostomy noted Skin: No obvious rashes or cyanosis Other: Alert and pleasant Primary Care Physician Flo Mckeon Discharge Orders Reason for your hospital stay Acute coccyx infection Chronic osteomyelitis Chronic pressure sores Chronic pain Rectal thickening - possibly due to chronic constipation Loose stools due to Augmentin antibiotic Activity Your activity upon discharge: activity as tolerated Resume Home Care Services [facility] Skilled RN and Home Health Aide resumption of care Wound care Comments: Location: buttock x3 (right IT) Care: provided twice daily and as needed for soiling 1. Remove dressings 2. Cleanse and Irrigate the wounds and periwound skin with Dakins solution per MAR BID (sodium hypochlorite DAKINS half-strength external solution), irrigate and flush the wounds with the solution, wet 4x4 gauze and scrub in gentle circles. Then pat dry 3. Apply skin prep (3M no sting skin barrier film or sure prep) to wound edges and periwound skin, let dry 4. Wet some rosy roll gauze or kerlix with Dakins solution, use a cotton tipped applicator to tuckinto wound bases for packing, do NOT over pack - this will cause pain and tissue damage, do pack the moist gauze all the way to the base or deepest part of the wound 5. Secure with 4x4 mepilex, ok to use each up to 5 days or until drainage is saturating the foam touching three corners, ok to lift for routine skin assessments Follow-up and recommended labs and tests Follow up with primary care provider, Flo Mckeon, within 7 days for hospital follow- up. No follow up labs or test are needed. Review pain meds check labs if needed. Patient will also need a preop in near future. Follow up with FROILAN Robles at [facility] clinic on 06/08/24 at 11:00 am for a stoma check. Follow up with Dr. Alfredo at [facility] clinic on 07/07/24 at 1:40 pm for a post-op visit. Call the office at [phone] if youneed to reschedule either appointment. Clinic address: [facility] [address] [facility] [address] [place] [address] Patient to contact the CRS office at [phone] if not has an appointment already. General info for SNF Length of Stay Estimate: Short Term Care: Estimated # of Days <30 Condition at Discharge: Stable Level of care:skilled Rehabilitation Potential: Fair Admission H&P remains valid and up-to-date: Yes Recent Chemotherapy: N/A Use Mcfp Standing Orders: Yes Mantoux instructions Give two-step Mantoux (PPD) Per Facility Policy Yes Follow Up and recommended labs and tests Follow up with group home physician. The following labs/tests are recommended: CBC and BMP in 3-5days. Follow up with PCP 1-2 weeks after TCU discharge Follow up with CRS as recommended Activity - Up with nursing assistance BiPAP - Continue Home BiPAP Continue Home BiPAP per home equipment settings. Contact Isolation Diet Follow this diet upon discharge: Orders Placed This Encounter Snacks/Supplements Adult: Expedite Bottle; With Meals Snacks/Supplements Adult: Ensure Max Protein (bariatric); Between Meals Combination Diet Regular Diet Adult Diet Follow this diet upon discharge: Orders Placed This Encounter Snacks/Supplements Adult: Expedite Bottle; With Meals Snacks/Supplements Adult: Ensure Max Protein (bariatric); Between Meals Diet Low Fiber Diet Significant Results and Procedures Most Recent 3 CBC's: Recent Labs Lab Test 05/24/24 0731 05/21/24 0705 05/19/24 0606 05/18/24 1118 05/16/24 0842 WBC -- 11.2* 12.5* -- 15.9* HGB -- 9.5* 9.4* 10.2* 10.2* MCV -- 89 87 -- 88 PLT 286 229 250 273 285 Most Recent 3 BMP's: Recent Labs Lab Test 05/21/24 0705 05/19/24 2221 05/19/24 0606 05/18/24 1118 NA 143 -- 140 144 POTASSIUM 3.4 -- 4.6 4.3 CHLORIDE 104 -- 101 102 CO2 32* -- 31* 32* BUN 31.0* -- 18.7 19.1 CR 0.44* -- 0.31* 0.31* ANIONGAP 7 -- 8 10 HOLLY 8.6* -- 8.6* 8.6* GLC 96 157* 137* 84 , Results for orders placed or performed during the hospital encounter of 05/10/24 CT Chest/Abdomen/Pelvis w Contrast Narrative EXAM: CT CHEST/ABDOMEN/PELVIS W CONTRAST LOCATION: [facility] DATE: 05/10/2024 INDICATION: Fever, paraplegia, abdominal pain [...] right presacral space. Subcutaneous gas and skin thickeningnoted. No drainable fluid collections. Generalized osteopenia limits exam. Previous thoracal lumbar stabilization with multilevel scoliosis and spondylosis. There is poor definition of the posterior cortex of the sacrococcygeal region adjacent to thedecubitus ulcer suspicious for developing osteomyelitis. Irregularity of the right ischium noted, with associated chronic bony sclerosis, as well as periosteal reaction compatible with chronic osteomyelitis. Soft tissue overlying the left ischium noted without fluid collections or associated bony destruction/sclerosis. Advanced degenerative changes in the right shoulder with moderate changes in the left shoulder and both hips. Impression IMPRESSION: 1. Multiple decubitus ulcers, with CT findings suspicious for acute osteomyelitis involving the coccyx, and chronic osteomyelitis involving the right ischium. No drainable fluid collections. 2. Cristobal catheter within the vagina. 3. Nonobstructing right renal pelvis stones, including 13 mm right UPJ calculus. 4. Anal wall thickening is likely related to chronic inflammation. Follow-up advised to exclude underlying lesions. Tube/Catheter positioning was called to [place] PA-C by Dr. Rai Lock on 05/10/2024 5:18 PM CDT. Discharge Medications Current Discharge Medication List START taking these medications Details bisacodyl (DULCOLAX) [address] 1 suppository (10 mg) rectally daily as needed for constipation Qty: 30 suppository, Refills: 0 Associated Diagnoses: Drug-induced constipation diclofenac (VOLTAREN) 1 % topical gel Apply 4 g topically 3 times daily left shoulder righ hipand around colostomy area Associated Diagnoses: Chronic pain syndrome doxycycline hyclate (VIBRAMYCIN) 100 MG capsule Take 1 capsule (100 mg) by mouth every 12 hours for5 days Qty: 10 capsule, Refills: 0 Associated Diagnoses: Osteomyelitis of coccyx (H) HYDROmorphone (DILAUDID) 2 MG tablet Take 1 tablet (2 mg) by mouth every 3 hours as needed for severe pain Qty: 12 tablet, Refills: 0 Comments: Refills by TCU Associated Diagnoses: Chronic pain syndrome Lidocaine (LIDOCARE) 4 % Patch Place 3 patches onto the skin every 24 hours To prevent lidocaine toxicity, patient should be patch free for 12 hrs daily. Qty: 30 patch, Refills: 0 Associated Diagnoses: Chronic pain syndrome loperamide (IMODIUM) 2 MG capsule Take 1 capsule (2 mg) by mouth 3 times daily as needed for diarrhea Qty: 60 capsule, Refills: 0 Associated Diagnoses: Loose stools metoprolol tartrate (LOPRESSOR) 25 MG tablet Take 1 tablet (25 mg) by mouth 2 times daily Associated Diagnoses: Chronic atrial fibrillation (H) polyethylene glycol (MIRALAX) 17 GM/Dose powder Take 17 g by mouth daily Qty: 510 g, Refills: 0 Associated Diagnoses: Drug-induced constipation pregabalin (LYRICA) 75 MG capsule Take 1 capsule (75 mg) by mouth 3 times daily Qty: 12 capsule, Refills: 0 Comments: Refills by TCU Associated Diagnoses: Chronic pain syndrome sennosides (SENOKOT) 8.6 MG tablet Take 1-2 tablets by mouth 2 times daily as needed for constipation Qty: 30 tablet, Refills: 0 Associated Diagnoses: Drug-induced constipation CONTINUE these medications which have NOT CHANGED Details acetaminophen (TYLENOL 8 HOUR ARTHRITIS PAIN) 650 MG CR tablet Take 1,300 mg by mouth 2 times dailyas needed for mild pain or fever Ascorbic Acid (VITAMIN C PO) Take 500 mg by mouth every evening furosemide (LASIX) 40 MG tablet Take 40 mg by mouth daily lactobacillus rhamnosus, GG, (CULTURELL) capsule Take 1 capsule by mouth daily naproxen sodium (ANAPROX) 220 MG tablet Take 220 mg by mouth daily (with breakfast) predniSONE (DELTASONE) 5 MG tablet Take 10 mg by mouth daily triamcinolone (KENALOG) 0.1 % external cream Apply topically 2 times daily as needed for irritation zinc sulfate (ZINCATE) 220 (50 Zn) MG capsule Take 220 mg by mouth every evening STOP taking these medications amoxicillin-clavulanate (AUGMENTIN) 875-125 MG tablet Comments: Reason for Stopping: gabapentin (NEURONTIN) 300 MG capsule Comments: Reason for Stopping: metoprolol succinate ER (TOPROL XL) 100 MG 24 hr tablet Comments: Reason for Stopping: metroNIDAZOLE (FLAGYL) 500 MG tablet Comments: Reason for Stopping: oxyCODONE (ROXICODONE) 5 MG tablet Comments: Reason for Stopping: Allergies Allergies Allergen Reactions Piperacillin Other (See Comments), Anaphylaxis, Rash and Unknown Tolerated augmentin, ceftriaxone, meropenem Per SNF Per patient, has tolerated Augmentin Tazobactam Anaphylaxis, Unknown, Other (See Comments) and Rash Per SNF Vancomycin Anaphylaxis and Other (See Comments) Per SNF * Anna Fajardo MD - 05/16/2024 2:23 PM CDT Images from the original note were not included. [facility] Hospitalist PROGRESS NOTE Date of Admission: 05/10/2024 Clinically Significant Risk Factors # DMII: A1C = 6.6 % (Ref range: <5.7 %) within past 6 months # Obesity: Estimated body mass index is 30.7 kg/m?? as calculated from the following: Height as of this encounter: 1.524 m (5'). Weight as of this encounter: 71.3 kg (157 lb 3 oz). Follow-ups Needed After Discharge Follow-up Appointments Follow-up and recommended labs and tests Follow up with primary care provider, Flo Mckeon, within 7 days for hospital follow- up. No follow up labs or test are needed. Review pain meds check labs if needed. Patient will also need a preop in near future. Plans on scheduling a diverting colectomy with CRS. Patient to contact the CRS office at [phone] if not has an appointment already. Unresulted Labs Ordered in the Past 30 Days of this Admission No orders found from 04/10/2024 to 05/11/2024. Assessment/Plan Prerna Major is a 78 year old female with medical history of history of transverse myelitis, paraplegia, neurogenic bladder with chronic indwelling Cristobal catheter, decubitus ulcers with chronic osteomyelitis, RA on chronic prednisone therapy, HUI, HFpEF, atrial fibrillation, hypertension, gastric ulcer presented to the ED with weakness. Discharge was set for 05/17, but patient decided to pursue diverting colectomy while inpatient. --Admitted [facility] on 03/06 -03/14/2024 for septic shock secondary to E. coli UTI with bacteremia, stage IV right ischial tuberosity decubitus ulcer. --Readmitted at [facility] on 03/21/[address] showed a sacral decubitus ulcer extending to the sacrum, right deep gluteal soft tissue tunneling and lower gluteal/upper thigh ulceration extending to the ischial tuberosity with evidence of chronic osteomyelitis. General surgery, infectious disease followed and recommended transfer to tertiary center. ---Was admitted at [facility] 03/24 to 03/31/2024. General surgery, infectious disease, wound care closely followed, impression chronic osteomyelitis. Echocardiogram negative for endocarditis.Cultures from outside hospital positive for Alice albicans. Was treated with IV antifungals, switch to oral fluconazole on discharge, completed course on 04/07/2024 for total of 14 days. Sepsis likely from infected decubitus ulcer, urinary source. Acute osteomyelitis involving the coccyx Chronic osteomyelitis involving the right ischium. Chronic decubitus ulcer. History of MRSA infection. --Presenting with abdominal discomfort all over the abdomen associated cramping. Reports associatednausea, no vomiting. Max of 101, associated headache and generalized weakness with poor intake. Reports home health nurse has been following for wound care, cultures positive for bacterial infection and was started on oral amoxicillin and metronidazole 3 days prior. --05/10/24 CT abdomen/pelvis = multiple decubitus ulcers, suspicious for acute osteomyelitis involving the coccyx, and chronic osteomyelitis involving the right ischium. No drainable fluid collections. >> as of 05/13/24, changed to augmentin and doxy (had been on ceftriaxone, daptomycin and metronidazole), intent is to treat with this regimen for another week (through 05/20/24) (ID has signed off) General surgery consult : As per surgery team wounds look okay no need for debridement. General surgery team is recommending diverting colostomy. Patient has declined, surgery has signed off However, on 05/15/24 feces noted from wound near coccyx. >> patient decided she would like to pursue diverting colectomy to improve wound cares. Seen By [facility] on 05/16/24. Patient was agreeable to have this surgery on 05/18/24. She does have multiple factors that do increase her surgical risks, including her cardiac disease, chronic immunosuppression, immobility and obesity. H/o difficult extubation in past. Urinary tract infection-catheter related. Neurogenic bladder with chronic indwelling Cristobal catheter Has chronic indwelling Cristobal catheter, reports last catheter last changed 2 weeks back. Catheter changed in ED. Now draining clear concentrated urine. --UA large leukocyte esterase, 123 WBCs, few bacteria and WBC clumps present. -- ID following, currently the augmentin will cover most UTI. Unfortunately urine culture was not sent on admission. Urine culture sent on 05/12/2024. Might not be reliable as patient already received antibiotics since admission. Anal wall thickening with large rectal fecal burden on imaging Chronic constipation. Reports has chronic constipation, bowel movement once in 3 to 4 days. Last bowel movement this morning, reports well-formed without blood or melena. -- Prior to admission on narcotics, patient reluctant for bowel meds as reports difficulty with wound care for decubitus ulcer. --CT abdomen and pelvis with no small bowel obstruction. Large rectal fecal burden. Anal wall thickening is likely related to chronic inflammation. -- Scheduled bowel meds. As needed bowel meds, suppository ordered. Minimize narcotic use. --Radiologist recommended follow-up advised to exclude underlying lesions -given anal wall thickening. Discussed with patient and family, age-appropriate health maintenance, follow-up imaging as outpatient. Physical deconditioning from medical illness, chronic debility. Transverse myelitis with paraplegia. Lives at home with her daughter, has home care. Reports mostly bedbound, uses motorized wheelchair as needed. Now reporting generalized weakness. --Addressed medical issues as discussed above. Chronic pain on narcotics. Continue BUSINESS MANAGEMENT CONSULTANT Tylenol. Continue BUSINESS MANAGEMENT CONSULTANT gabapentin. Continue BUSINESS MANAGEMENT CONSULTANT as needed oxycodone, minimize use as able to. Patient with acute on chronic pain issues due to decubitus ulcers. Pain medicine team consultation requested regarding management of pain issues Sinus tachycardia likely from sepsis resolved Moderate atherosclerotic disease. Chronic heart failure with preserved EF [last EF greater than 75% from 01/14/2023] Atrial fibrillation not on anticoagulation. Hypertension --Denies any chest pain or palpitations or shortness of breath at this time.Clear lungs. --EKG sinus tachycardia, heart rate 103, QTc 445. --CT chest with linear atelectasis, effusions, or pneumothorax. Moderate atherosclerotic disease. BUSINESS MANAGEMENT CONSULTANT Lasix held on admission. Restarted on 05/12/2024 Continue BUSINESS MANAGEMENT CONSULTANT Toprol, switch to immediate release 25 mg twice daily with hold parameters. ---- BUSINESS MANAGEMENT CONSULTANT not on aspirin or statin. Defer further cardiac workup to outpatient. Telemetry monitoring. Intake output monitoring, daily weights. Hypokalemia. Potassium replacement ordered Potassium normal at 4.1 Obstructive sleep apnea Uses BiPAP as outpt. Has chronic CO2 retention. Resume BiPAP per home settings. Rheumatoid arthritis Continue on BUSINESS MANAGEMENT CONSULTANT on prednisone 10 mg daily. Used to take methotrexate, but intolerant/side effects. Chronic Anemia likely secondary to chronic disease. Baseline hemoglobin 9-10 range. Hemoglobin at around previous baseline. Incidental renal stones. CT - No hydronephrosis. Nonobstructive right renal pelvic stones including 13 mm right UPJ calculus. Recommend follow-up with urology as outpatient if symptomatic. Diabetes mellitus with a hemoglobin A1c of 6.6. BUSINESS MANAGEMENT CONSULTANT not on meds. BS were 93-200 Diet :Combination Diet Regular Diet Adult Snacks/Supplements Adult: Ensure Max Protein (bariatric); Between Meals Snacks/Supplements Adult: Expedite Bottle; With Meals DVT Prophylaxis: Pneumatic Compression Devices Code Status: No CPR- Do NOT Intubate 51 MINUTES SPENT BY ME on the date of service doing chart review, history, exam, documentation & further activities per the note. Medically Ready for Discharge: Anticipated in 2-4 Days Consultations This Hospital Stay INFECTIOUS DISEASES IP CONSULT SURGERY GENERAL IP CONSULT WOUND OSTOMY CONTINENCE NURSE IP CONSULT CARE MANAGEMENT / SOCIAL WORK IP CONSULT NUTRITION SERVICES ADULT IP CONSULT VASCULAR ACCESS ADULT IP CONSULT PAIN MANAGEMENT ADULT IP CONSULT WOUND OSTOMY CONTINENCE NURSE IP CONSULT VASCULAR ACCESS ADULT IP CONSULT SURGERY GENERAL IP CONSULT COLORECTAL SURGERY IP CONSULT COLORECTAL SURGERY IP CONSULT WOUND OSTOMY CONTINENCE NURSE IP CONSULT Code Status No CPR- Do NOT Intubate Time Spent on this Encounter I, Anna Fajardo MD, personally saw the patient today and spent greater than 30 minutes discharging this patient. Anna Fajardo MD [place] [id number] ON[address] [facility] [address], [address] [place] [address] Physical Exam Vital Signs: Temp: 98.3 ??F (36.8 ??C) Temp src: Oral BP: 134/55 Pulse: 92 Resp: 18 SpO2: 98 % O2 Device: None (Room air) Weight: 157 lbs 3.01 oz Constitutional:Awake, alert, cooperative, no apparent distress Respiratory: Clear to auscultation bilaterally, no crackles or wheezing Cardiovascular: Regular rate and rhythm, normal S1 and S2, and no murmur noted distant due to body habitus GI: Normal bowel sounds, soft, non-distended, non-tender Skin/Integumen: Extensive decubitus ulcers present per WOC and providers notes. Unable to inspect today Neuro : paraplegia. contractures noted lower extremity Primary Care Physician Flo Mckeon Discharge Orders Reason for your hospital stay Acute coccyx infection Chronic osteomyelitis Chronic pressure sores Chronic pain Rectal thickening - possibly due to chronic constipation Loose stools due to Augmentin antibiotic Activity Your activity upon discharge: activity as tolerated Resume Home Care Services [facility] Skilled RN and Home Health Aide resumption of care Wound care Comments: Location: buttock x3 (right IT) Care: provided twice daily and as needed for soiling 1. Remove dressings 2. Cleanse and Irrigate the wounds and periwound skin with Dakins solution per MAR BID (sodium hypochlorite DAKINS half-strength external solution), irrigate and flush the wounds with the solution, wet 4x4 gauze and scrub in gentle circles. Then pat dry 3. Apply skin prep (3M no sting skin barrier film or sure prep) to wound edges and periwound skin, let dry 4. Wet some rosy roll gauze or kerlix with Dakins solution, use a cotton tipped applicator to tuckinto wound bases for packing, do NOT over pack - this will cause pain and tissue damage, do pack the moist gauze all the way to the base or deepest part of the wound 5. Secure with 4x4 mepilex, ok to use each up to 5 days or until drainage is saturating the foam touching three corners, ok to lift for routine skin assessments Follow-up and recommended labs and tests Follow up with primary care provider, Flo Mckeon, within 7 days for hospital follow- up. No follow up labs or test are needed. Review pain meds check labs if needed. Patient will also need a preop in near future. Plans on scheduling a diverting colectomy with CRS. Patient to contact the CRS office at [phone] if not has an appointment already. Diet Follow this diet upon discharge: Orders Placed This Encounter Snacks/Supplements Adult: Expedite Bottle; With Meals Snacks/Supplements Adult: Ensure Max Protein (bariatric); Between Meals Combination Diet Regular Diet Adult Significant Results and Procedures Most Recent 3 CBC's: Recent Labs Lab Test 05/16/24 0842 05/15/24 0846 05/13/24 0816 05/11/24 1055 05/10/24 1444 WBC 15.9* -- 10.0 13.4* 15.6* HGB 10.2* -- 9.6* -- 10.3* MCV 88 -- 89 -- 86 PLT 285 255 283 -- 287 Most Recent 3 BMP's: Recent Labs Lab Test 05/16/24 0842 05/13/24 0816 05/11/24 1055 NA 142 140 138 POTASSIUM 3.7 4.1 4.1 CHLORIDE 104 107 106 CO2 31* 27 25 BUN 27.0* 20.0 12.0 CR 0.33* 0.33* 0.29* ANIONGAP 7 6* 7 HOLLY 8.9 8.7* 8.4* GLC 128* 94 199* Most Recent 2 LFT's: Recent Labs Lab Test 05/10/24 1444 03/07/24 0431 AST 17 45 ALT 9 62* ALKPHOS 101 275* BILITOTAL 0.4 0.2 Most Recent D-dimer:No lab results found. 7-Day Micro Results Collected Updated Procedure Result Status 05/14/2024 1601 05/14/2024 1939 C. difficile Toxin B PCR with reflex to C. difficile Antigen and Toxins A/B EIA [[id number]] Stool from Per Rectum Final result Component Value C Difficile Toxin B by PCR Negative A negative result does not exclude actual disease due to C. difficile and may be due to improper collection, handling and storage of the specimen or the number of organisms in the specimen is below the detection limit of the assay. 05/12/2024 1220 05/13/2024 1046 Urine Culture [[id number]] Urine, Cristobal Catheter Final result Component Value Culture No Growth 05/10/2024 1448 05/15/2024 1531 Blood Culture Peripheral Blood [[id number]] Peripheral Blood Final result Component Value Culture No Growth 05/10/2024 1446 05/10/2024 1608 Symptomatic Influenza A/B, RSV, & SARS-CoV2 PCR (COVID-19) Nasopharyngeal [[id number]] Swab from Nasopharyngeal Final result Component Value Influenza A PCR Negative Influenza B PCR Negative RSV PCR Negative SARS CoV2 PCR Negative NEGATIVE: SARS-CoV-2 (COVID-19) RNA not detected, presumed negative. Most Recent Hemoglobin A1c: Recent Labs Lab Test 03/07/24 0431 A1C 6.6* Most Recent 6 glucoses: Recent Labs Lab Test 05/16/24 0842 05/13/24 0816 05/11/24 1055 05/10/24 1444 03/14/24 0602 03/12/24 0603 GLC 128* 94 199* 93 95 91 Most Recent ESR & CRP: Recent Labs Lab Test 05/10/241443 CRPI 61.98* , Results for orders placed or performed during the hospital encounter of 05/10/24 CT Chest/Abdomen/Pelvis w Contrast Narrative EXAM: CT CHEST/ABDOMEN/PELVIS W CONTRAST LOCATION: [facility] DATE: 05/10/2024 INDICATION: Fever, paraplegia, abdominal pain [...] right presacral space. Subcutaneous gas and skin thickeningnoted. No drainable fluid collections. Generalized osteopenia limits exam. Previous thoracal lumbar stabilization with multilevel scoliosis and spondylosis. There is poor definition of the posterior cortex of the sacrococcygeal region adjacent to thedecubitus ulcer suspicious for developing osteomyelitis. Irregularity of the right ischium noted, with associated chronic bony sclerosis, as well as periosteal reaction compatible with chronic osteomyelitis. Soft tissue overlying the left ischium noted without fluid collections or associated bony destruction/sclerosis. Advanced degenerative changes in the right shoulder with moderate changes in the left shoulder and both hips. Impression IMPRESSION: 1. Multiple decubitus ulcers, with CT findings suspicious for acute osteomyelitis involving the coccyx, and chronic osteomyelitis involving the right ischium. No drainable fluid collections. 2. Cristobal catheter within the vagina. 3. Nonobstructing right renal pelvis stones, including 13 mm right UPJ calculus. 4. Anal wall thickening is likely related to chronic inflammation. Follow-up advised to exclude underlying lesions. Tube/Catheter positioning was called to [place] PA-C by Dr. Rai Lock on 05/10/2024 5:18 PM CDT. Discharge Medications Current Discharge Medication List START taking these medications Details bisacodyl (DULCOLAX) [address] 1 suppository (10 mg) rectally daily as needed for constipation Qty: 30 suppository, Refills: 0 Associated Diagnoses: Drug-induced constipation diclofenac (VOLTAREN) 1 % topical gel Apply 4 g topically 3 times daily Qty: 100 g, Refills: 1 Associated Diagnoses: Chronic pain syndrome doxycycline hyclate (VIBRAMYCIN) 100 MG capsule Take 1 capsule (100 mg) by mouth every 12 hours for5 days Qty: 10 capsule, Refills: 0 Associated Diagnoses: Osteomyelitis of coccyx (H) Lidocaine (LIDOCARE) 4 % Patch Place 3 patches onto the skin every 24 hours To prevent lidocaine toxicity, patient should be patch free for 12 hrs daily. Qty: 30 patch, Refills: 0 Associated Diagnoses: Chronic pain syndrome loperamide (IMODIUM) 2 MG capsule Take 1 capsule (2 mg) by mouth 3 times daily as needed for diarrhea Qty: 60 capsule, Refills: 0 Associated Diagnoses: Loose stools polyethylene glycol (MIRALAX) 17 GM/Dose powder Take 17 g by mouth daily Qty: 510 g, Refills: 0 Associated Diagnoses: Drug-induced constipation sennosides (SENOKOT) 8.6 MG tablet Take 1-2 tablets by mouth 2 times daily as needed for constipation Qty: 30 tablet, Refills: 0 Associated Diagnoses: Drug-induced constipation CONTINUE these medications which have CHANGED Details amoxicillin-clavulanate (AUGMENTIN) 875-125 MG tablet Take 1 tablet by mouth 2 times daily for 5 days Qty: 10 tablet, Refills: 0 Associated Diagnoses: Osteomyelitis of coccyx (H) metoprolol succinate ER (TOPROL XL) 100 MG 24 hr tablet Take 0.5 tablets (50 mg) by mouth daily Associated Diagnoses: Septic shock (H) !! oxyCODONE (ROXICODONE) 10 MG tablet Take 1 tablet (10 mg) by mouth every 4 hours as needed for severe pain (IF pain not managed with non-pharmacological and non-opioid interventions) Qty: 28 tablet, Refills: 0 Associated Diagnoses: Chronic pain syndrome !! oxyCODONE (ROXICODONE) 5 MG tablet Take 1.5 tablets (7.5 mg) by mouth every 4 hours as needed Associated Diagnoses: Chronic pain syndrome !! - Potential duplicate medications found. Please discuss with provider. CONTINUE these medications which have NOT CHANGED Details acetaminophen (TYLENOL 8 HOUR ARTHRITIS PAIN) 650 MG CR tablet Take 1,300 mg by mouth 2 times dailyas needed for mild pain or fever Ascorbic Acid (VITAMIN C PO) Take 500 mg by mouth every evening furosemide (LASIX) 40 MG tablet Take 40 mg by mouth daily gabapentin (NEURONTIN) 300 MG capsule Take 300 mg by mouth 3 times daily lactobacillus rhamnosus, GG, (CULTURELL) capsule Take 1 capsule by mouth daily naproxen sodium (ANAPROX) 220 MG tablet Take 220 mg by mouth daily (with breakfast) predniSONE (DELTASONE) 5 MG tablet Take 10 mg by mouth daily triamcinolone (KENALOG) 0.1 % external cream Apply topically 2 times daily as needed for irritation zinc sulfate (ZINCATE) 220 (50 Zn) MG capsule Take 220 mg by mouth every evening STOP taking these medications metroNIDAZOLE (FLAGYL) 500 MG tablet Comments: Reason for Stopping: Allergies Allergies Allergen Reactions Piperacillin Other (See Comments), Anaphylaxis, Rash and Unknown Tolerated augmentin, ceftriaxone, meropenem Per SNF Per patient, has tolerated Augmentin Tazobactam Anaphylaxis, Unknown, Other (See Comments) and Rash Per SNF Vancomycin Anaphylaxis and Other (See Comments) Per SNF documented in this encounter Discharge Instructions * Discharge Instructions* Izzy Marie RN - 05/11/2024 10:48 AM CDT TO DO: When you were talking with the wound care nurse you mentioned your chair cushion is two years old. You probably qualify for a new chair cushion. Please talk with your PCP about obtaining a new wheelchair cushion for your wheelchair. Coccyx, Right buttock, Right IT wounds: Daily Remove dressings gently using a pull/push method, fragile skin. Cleanse surrounding skin with wound cleanser or mild soap and water, and irrigate depth of wounds with Dakins Solution. Apply no sting barrier film to periwound skin and mild skin stripping on left buttock. Lightly moisten kerlix gauze with Dakins and lightly pack into wound bed. Right IT and Coccyx woundbeds are able to be visualized, Right buttock wound is about 8.5cm in depth and requires about 1 foot of kerlix gauze to pack. Cover with Mepilex 4x4. Follow up with electric needle specialist in 2-4 weeks. Ok to use TCU facility [facility] if they have one or schedule an appointment with the [facility]aling [facility] New Colostomy: discharge instructions Surgery date: 05/18/24 Surgeon: Dr. Peter Alfredo Procedure: lap colostomy Related diagnosis: constipation and stage 4 pressure wounds 1. Change appliance 2-3 times a week and as needed for leakage. 2. Empty or change pouch when 1/3 full of stool/gas. 3. Will not harm appliance to get wet during bathing. Can blow dry (on cool setting) cloth tape andbacking after bath or shower. 4. Initially eat 6 small meals/day. No long-term dietary restrictions related to colostomy. 5. Drink plenty of fluids. 6. Always carry an emergency pouch - can prepare it ahead of time (cut out opening and apply ring). 7. If concerned about odor use an odor eliminator (ie. Febreeze) in your bathroom prior to emptying/changing the appliance. 8. No heavy lifting, no sit-ups but walk frequently. 9. OK to take stairs. Supplies: [employer] / [email or web address] New Image 2-pc system (up to 20 pouch changes/month) 1. Barrier: New Image CeraPlus 70mm soft convex cut-to-fit with tape - #75472 (5/box = 2 box/month) 2a. Pouch: 70mm closed pouch, beige, with filter, 'quiet-wear' - #42315 (30/box = 2 box/month) and/or 2b. Pouch: 70mm drainable lock n roll, beige, with filter - #79424 (10/box = 1-2 box/month) 3. Ring: Alessia 2 CeraRing (if needed for leakage; as stool thickens you might not need the ring anymore) - #9492 (10/box = 1 box/month) As needed 4. 3M Cavilon no-sting skin barrier (optional if needed) - #6695 (50/box = 1 box as needed) 5. Stoma powder (if needed) - #7906 (1 bottle as needed) 6. Odor eliminator & lubricant (optional) - #56189 (8oz bottle) or #51958 (8ml packets, 50 in abox) (1 as needed) 7. Ostomy belt (optional) - #7299 (large) - (box of 10 = 1 box as needed) Pouching procedure: 1. Cut out opening in barrier following pattern. (approx. 1/8 larger than stoma) 2. Remove plastic backing. 3. Open ring (if using), stretch and apply around the cut opening on sticky side of barrier. Press into place. Note: can 'build up' the ring to fill in any divots in peristomal skin. 4. Fold back edge of paper that covers the tape to create a tab. This assists with paper removal later on. 5. May attach pouch to barrier at this time. Set prepared pouch aside. 6. Remove old pouch from around stoma. Discard. 7. Cleanse around stoma with water only. Dry well. 8. Apply pouch: Ensure skin completely dry. Pull up gently on abdomen to create flat pouching surface, or lie flat if able. Center stoma in barrier opening and press barrier firmly to skin. 9. Pull on tabs to remove paper that covers the tape. Press tape to skin. Ok if there are wrinkles in the tape. 10. Attach pouch to barrier, if have not already done. Ensure pouch is closed. 11. Hold warm hand over stoma/barrier for 2-3 minutes, to help pouch form a good secure hilliard with the skin. Follow-up: (if issues after home care is done) Clinic room is on 1st floor in [facility] - check in at [place] [facility] in [facility] phone # [phone] (Fri - Fri) - call for any questions or concerns documented in this encounter Medications at Time of Discharge Medication Sig Dispensed Refills Start Date End Date acetaminophen (TYLENOL 8 HOUR ARTHRITIS PAIN) 650 MG CR tablet Take 1,300 mg by mouth 2 times daily as needed for mild pain or fever Ascorbic Acid (VITAMIN C PO) Take 500 mg by mouth every evening bisacodyl (DULCOLAX) 10 MG suppositoryIndicatio ns:Drug-induced constipation Place 1 suppository (10 mg) rectally daily as needed for constipation 30 suppository 05/15/2024 diclofenac (VOLTAREN) 1 % topical gelIndications:Chron ic pain syndrome Apply 4 g topically 3 times daily left shoulder righ hipand around colostomy area 05/25/2024 furosemide (LASIX) 40 MG tablet Take 40 mg by mouth daily HYDROmorphone (DILAUDID) 2 MG tabletIndications:Ch ronic pain syndrome Take 1 tablet (2 mg) by mouth every 3 hours as needed for severe pain 12 tablet 05/25/2024 lactobacillus rhamnosus, GG, (CULTURELL) capsule Take 1 capsule by mouth daily Lidocaine (LIDOCARE) 4 % PatchIndications:Chr onic pain syndrome Place 3 patches onto the skin every 24 hours To prevent lidocaine toxicity, patient should be patch free for 12 hrs daily. 30 patch 05/15/2024 loperamide (IMODIUM) 2 MG capsuleIndications:L oose stools Take 1 capsule (2 mg) by mouth 3 times daily as needed for diarrhea 60 capsule 05/15/2024 metoprolol tartrate (LOPRESSOR) 25 MG tabletIndications:Ch ronic atrial fibrillation Take 1 tablet (25 mg) by mouth 2 times daily 05/25/2024 naproxen sodium (ANAPROX) 220 MG tablet Take 220 mg by mouth daily (with breakfast) polyethylene glycol (MIRALAX) 17 GM/Dose powderIndications:Dr ug-induced constipation Take 17 g by mouth daily 510 g 05/15/2024 predniSONE (DELTASONE) 5 MG tablet Take 10 mg by mouth daily pregabalin (LYRICA) 75 MG capsuleIndications:C hronic pain syndrome Take 1 capsule (75 mg) by mouth 3 times daily 12 capsule 05/25/2024 sennosides (SENOKOT) 8.6 MG tabletIndications:Dr nisha-induced constipation Take 1-2 tablets by mouth 2 times daily as needed for constipation 30 tablet 05/15/2024 triamcinolone (KENALOG) 0.1 % external cream Apply topically 2 times daily as needed for irritation zinc sulfate (ZINCATE) 220 (50 Zn) MG capsule Take 220 mg by mouth every evening documented as of this encounter Progress Notes * Bertha Campbell, RN - 05/26/2024 12:31 PM CDT Coccyx/Sacral dressing changed, not secured with the mepilex, as pt has tape huff and breakdown. [facility] facility will assess and change dressing tonight, so it is secured with paper tape and a brief * Elizabeth Hector LSW - 05/26/2024 11:33 AM CDT Care Management Discharge Note Discharge Date: 05/26/2024 Discharge Disposition: [facility] Facility Discharge Services: Discharge DME: Discharge Transportation: Private pay costs discussed: Not applicable Does the patient's insurance plan have a 3 day qualifying hospital stay waiver? No PAS Confirmation Code: [id number] Patient/family educated on Medicare website which has current facility and service quality ratings:yes Education Provided on the Discharge Plan: Persons Notified of Discharge Plans: APPLIED STATISTICIAN, Charge, patient, facility, family Patient/Family in Agreement with the Plan: yes Handoff Referral Completed: No Additional Information: [employer] [address] [employer] received confirmation that [employer] insurance auth received. Faxed orders to [facility] TCU. Faxed meds and PAS, let daughter and nurse know patient was discharging. Patient may need to leave her wheelchair and some belongings here and daughter will pick up man from [facility]. CHANTE Smiley * Izzy Marie RN - 05/26/2024 10:35 AM CDT Images from the original note were not included. [facility] Nurse Inpatient Assessment Consulted for: Colostomy, buttock wounds Summary: New colostomy 05-18-24 for improved wound hygiene. Stoma viable, output WNL. Supplies for discharge in room. Patient reports daughterElvi is primary child care counselor who will perform ostomy changes. 05/26 pt discharging to TCU, pouch changed prior to discharge, current plan working well. POA wounds to buttock x3 stage 4, noted stable /stable on follow up assessment 05/25. Changed to daily dressing changes 05/25. (Not assessed 05/26) Patient History (according to provider note(s): 78 year old female with medical history of history of transverse myelitis, paraplegia, neurogenic bladder with chronic indwelling Cristobal catheter, decubitus ulcers with chronic osteomyelitis, RA on chronic prednisone therapy, HUI, HFpEF, atrial fibrillation, hypertension, gastric ulcer presented tot ED with weakness. Assessment: Areas visualized during today's visit: Focused: and Abdomen Assessment of new end Colostomy: Diagnosis Pertinent to Stoma: constipation and stage 4 pressure injury wounds Surgery Date: 05/18/24 Surgeon: Dr. Peter Alfredo [facility]: [facility] Pouching system in place on assessment today: [place] two piece soft convex Pouch barrier status: intact Pouch last changed/wear time: 05/18, 05/20, 05/24, 05/26 Reason for pouch change today: routine schedule and assessment Effectiveness of current pouching/ supply plan: Recommend continuing current plan Change made with ostomy management today: No Pouching system placed today: [place] 2pc 70mm soft convex with ring and lock n roll pouch Supplies: packed for discharge Last photo: 05/24/12 Stoma location: LUQ Stoma size: ~1 3/4 inches, Stoma appearance: viable, healthy, with lumen angled toward 4-5 o'clock and near skin level Mucocutaneous junction: intact on 05/24 Peristomal complication(s): none Output: small pasty brown Output volume emptied during visit: 0ml Abdominal assessment: Distended Surgical site(s): glued lap sites dry, intact, scattered bruising NG still in place? No Pain: tender Is patient still on a TIME RECORDER? No Ostomy education assessment: Participant of teaching session today: patient only Education completed today: Stoma assessment, Pouching system assessment , When to seek medical attention, Low fiber diet , Lifestyle adjustments , and Discharge instructions Educational materials/methods: Verbal, Addressed patient/caregiver questions/concerns, and Left packet of information at bedside Education still needed: Pouch change return demonstration and Pouch emptying return demonstration Learning Comprehension: Psychosocial assessment: pt is alert, engaged in education, able to ask questions and observe, patient states I am still not comfortable yet with it being on my body patient declines to participatein pouch emptying 05/21; no family present 05/24 or 05/26 for education; pt has physical limitations that will prevent her from being independent with cares Patient readiness for education today: attentive Following today's visit: patient is able to demonstrate; 1. How to empty their pouch? Demo provided and Needs additional practice 2. How to change their pouch? Demo provided and Needs additional practice Preparation for discharge completed: Placed prescription recommendations in discharge navigator forMD to sign, Ensured patient has extra supplies for discharge, Discussed how to order supplies afterdischarge , Ordered samples from global logistics manager after gaining consent from patient/caregiver, Discussed how and when to make an outpatient WOC nurse appointment after discharge, Prepared for discharge home with home care, and Discuss signs/symptoms of when to seek medical attention Preparation for discharge still needed: reinforce teaching; family and pt need hands-on practice Pt support system on discharge: niece and daughter WO recommend home care? Yes after TCU Wound location: buttock, coccyx right ischial tuberosity and right buttock (not assessed 05/26) Coccyx and right buttock Right IT view Last photo: 05/18 Wound due to: Pressure Injury x3 stage 4 per historical charting POA Wound history/plan of care: patient reports she has been wheelchair dependent since she was 6 yearsold, denies desire for colostomy, describes history of using different wound modalities including wound vac and vashe, states decreased desire to use wound vac due to previous cumbersome management, informs staff her daughter helps with her cares, states she uses a hospital bed at home and wheelchair with a cushion which is 2 years old, describes having a poor appetite recently Wound base: granulation tissue and non-granular tissue to visible wound bases Palpation of the wound bed: normal Drainage: small Description of drainage: serous and serosanguinous Measurements (length x width x depth, in cm): coccyx 3.5cm x 3cm x 2cm, right buttock 2.8cm x 2.5cmx 8.5cm, right IT 1.5cm x 2.5cm x 2.5cm. Superficial skin stripping to left buttock from mepilex removal n a 6cm x 2 cm area. Tunneling: N/A Undermining: N/A Periwound skin: Superficial erosion Color: pink Temperature: normal Odor: none Pain: moderate, Pain interventions prior to dressing change: 1 hour prior to dressing change provided by primary RN Treatment goal: Heal per patient stated goal, will most likely require plastics for this to occur. Patient requests Dakin's Solution over Vashe for cost. STATUS: improving and stable Supplies ordered: discussed with RN Treatment Plan: 05/11/24 1027 sodium hypochlorite (DAKINS half-strength) external solution Start: 05/11/24 1030, Irrigation, 2 TIMES DAILY, Routine Admin Instructions: Use with wound cares BID to buttock wounds x3 for cleansing and application to gauze for wound packing 05/11/24 1027 Skin care precautions Start: 05/11/24 1026, EFFECTIVE NOW, Routine Comments: Pressure Injury Prevention (PIP) Plan: If patient is declining pressure injury prevention interventions: Explore reason why and address patient's concerns, Educate on pressure injury risk and prevention intervention(s), If patient is still declining, document informed refusal , and Ensure Care team is aware ( provider, charge nurse, etc) Mattress: Follow bed algorithm, reassess daily and order specialty mattress, if indicated. HOB: Maintain at or below 30 degrees, unless contraindicated Repositioning in bed: Every 1-2 hours , Left/right positioning; avoid supine, and Raise foot of bedprior to raising head of bed, to reduce patient sliding down (shear) Heels: Keep elevated off mattress and Pillows under calves Protective Dressing: wound care orders for buttock. Mepilex for protection to other areas Positioning Equipment: as needed Fluidized positioner (#[id number] or #[id number]) to help maintain side lying position. Chair positioning: Chair cushion (#[id number]) , Assist patient to reposition hourly, and Do NOT use a donut for sitting (this increases pressure to smaller area and creates a higher potential for injury) If patient has a buttock pressure injury, or high risk for PI use chair cushion or SPS. Moisture Management: Perineal cleansing /protection: Follow Incontinence Protocol, Avoid brief in bed, Clean and dry skin folds with bathing , and Moisturize dry skin Under Devices: Inspect skin under all medical devices during skin inspection , Ensure tubes are stabilized without tension, and Ensure patient is not lying on medical devices or equipment when repositioned Ask provider to discontinue device when no longer needed. Coccyx, Right buttock, Right IT wounds: Daily Remove dressings gently using a pull/push method, fragile skin. Cleanse surrounding skin with wound cleanser and irrigate depth of wounds with Dakins Solution. Apply no sting barrier film to periwound skin and mild skin stripping on left buttock. Lightly moisten kerlix gauze with Dakins and lightly pack into wound bed. Right IT and Coccyx woundbeds are able to be visualized, Right buttock wound is about 8.5cm in depth and requires about 1 foot of kerlix gauze to pack. Cover with Mepilex 4x4. Follow PIP protocol Colostomy; LUQ Care EFFECTIVE NOW Comments: LUQ Colostomy pouching plan: Pouching system: ostomy supplies pouches: Alessia 70 FECAL ([id number]) ostomy supplies barrier: [place] 70mm SOFT CONVEX ([id number]) Accessories used: WO ostomy accessories: 2 Cera Barrier Ring ([id number]) Frequency of pouch changes: PRN leakage and Three times a week WOC follow up plan: Daily Friday-Friday (as able) Bedside RN interventions: Change pouch PRN if leaking using the supplies above, Empty pouch when 1/3 to 1/2 full, ensure to clean pouch outlet after emptying to prevent odor, Notify WOC for ongoing pouch leakage, and Document stoma appearance and output volume, color, and consistency every shift Question Answer Comment Type of Ostomy Colostomy Location LUQ Pouch Change Frequency PRN Leakage Pouch changed by WOC Pouch emptied by Patient to empty with assist Straight Drainage No Orders: Reviewed and Updated RECOMMEND PRIMARY TEAM ORDER: None, at this time Education provided: plan of care, wound progress, and Off-loading pressure Discussed plan of care with: Patient and Nurse WOC nurse follow-up plan: weekly for wound follow up assessment, daily follow up for ostomy teaching after surgery Notify WOC if wound(s) deteriorate. Nursing to notify the Provider(s) and re-consult the [facility] Nurse if new skin concern. DATA: Current support surface: Standard Low air loss (MARSHALL pump, Isolibrium, Pulsate) Containment of urine/stool: Indwelling catheter and Colostomy pouch BMI: Body mass index is 26.31 kg/m??. Active diet order: Orders Placed This Encounter Diet Low Fiber Diet Diet Output: I/O last 3 completed shifts: In: 590 [P.O.:590] Out: 3000 [Urine:2475; Stool:525] Labs: Recent Labs Lab 05/21/24 0705 HGB 9.5* WBC 11.2* Pressure injury risk assessment: Sensory Perception: 2-->very limited Moisture: 3-->occasionally moist Activity: 1-->bedfast Mobility: 2-->very limited Nutrition: 3-->adequate Friction and Shear: 1-->problem Brandon Score: 12 Izzy Marie RN CWOCN -Securely message with [facility] ([facility]) [facility] -[facility] Office (messages checked periodically Mon-Fri 8a-4p) * Elizabeth Hector [facility] - 05/26/2024 10:07 AM CDT Care Management Follow Up Length of Stay (days): 16 Expected Discharge Date: 05/26/2024 Concerns to be Addressed: Patient plan of care discussed at interdisciplinary rounds: Yes Anticipated Discharge Disposition: [facility] Facility Anticipated Discharge Services: Anticipated Discharge DME: Patient/family educated on Medicare website which has current facility and service quality ratings:yes Education Provided on the Discharge Plan: Patient/Family in Agreement with the Plan: yes Referrals Placed by CM/SW: Senior Linkage Line, Post Acute Facilities, Transportation Private pay costs discussed: Not applicable Additional Information: [employer] Man completed pas in anticipation of discharge. PAS-RR D: Per DHS regulation, SW completed and submitted PAS-RR to [place] Board on Aging Direct Connect via the Senior LinkAge Line. PAS-RR confirmation # is : [id number] I: DAISY spoke with PT and they are aware a PAS-RR has been submitted. SW reviewed with Pt that they may be contacted for a follow up appointment within 10 days of hospital discharge if their SNF stay is < 30 days. Contact information for Senior LinkAge Line was also provided. A: Pt verbalized understanding. P: Further questions may be directed to Senior LinkAge Line at # , option #4 for [facility]- staff. CHANTE Smiley * Mateo Henry RN - 05/26/2024 6:36 AM CDT Date & Time: 05/25/24, [id number] Surgery/POD#: POD7/8 diverting colostomy Hx: Chronic osteomyelitis, decubitus ulcers, neurogenic bladder w/ chronic cristobal, RA, HUI, HFpEF, Afib, MRSA infection Behavior & Aggression: Green Fall Risk: Yes Orientation: AO4 VS/O2: VSS RA ABNL Labs/Results: See results tab. Pain Management: PRN PO dilaudid GI/: Chronic cristobal, adequate UOP. Colostomy in place w/ loose OP. IV/Lines: Midline SL, no blood return Skin/Wounds/Incisions: Abd lap sites CDI; buttock wounds x3, MIKAYLA, pt refused wound cares this shift. Blanchable redness in abdominal folds, interdry in place. Diet: Tolerating low fiber Activity Level: A2 lift/repo Anticipated DC Date: Today (05/26) Significant Information: Possible discharge 05/26 to [facility] pending insurance approval.Ride is currently scheduled for [id number]. Per patient, upper extremity mobility is below baseline and would appreciate PT assessment for rehab suitability as patient's baseline strength previously made her an assist of 1 for home ADLs. * Forrest Garcia DO - 05/25/2024 3:52 PM CDT [facility] Medicine Progress Note - Hospitalist Service Date of Admission: 05/10/2024 Assessment & Plan Prerna Major is a 78 year old female with medical history of history of transverse myelitis, paraplegia, neurogenic bladder with chronic indwelling Cristobal catheter, decubitus ulcers with chronic osteomyelitis, RA on chronic prednisone therapy, HUI, HFpEF, atrial fibrillation, hypertension, gastric ulcer presented to the ED with weakness. Workup revealed acute osteomyelitis of the coccyx. Patient underwent diverting colostomy on 05/18/2024 for improved wound hygiene # Sepsis likely from infected decubitus ulcer # Osteomyelitis involving the coccyx # Chronic osteomyelitis involving the right ischium. # Chronic decubitus ulcer. # History of MRSA infection. -Recent admission at [facility] between 03/07-03/14/2024 for septic shock secondary to E. coli UTI with bacteremia, readmitted at [facility] on 03/21/2024 with severe sepsis and another admission at [facility] between 03/24-03/31 2024 -Presented here with abdominal discomfort associated with nausea and fever -CT abdomen and pelvis on 05/10/2024 showed multiple decubitus ulcer, suspicious for acute osteomyelitis involving the coccyx and chronic osteomyelitis involving the right ischium. No drainable fluid collection -General Surgery also followed, they recommended diverting colostomy. No need for debridement. -Infectious disease also followed - Initially on IV meropenem, subsequently transitioned to Augmentin and doxycycline. Completed antibiotic course per ID recommendation on 05/20/2024. - Underwent diverting colostomy on 05/18/2024 - Continue low fiber diet -Pain control as needed, pain team following, patient still having significant pain for dressing changes and she does not think she will have adequate help at home to achieve this -Discontinued IV narcotics. Continue as needed oral Dilaudid -Patient agreed to consider TCU. Discussed with social work and updated -Lovenox for DVT prophylaxis -Wound care team following, appreciate recs. # Urinary tract infection-catheter related. # Neurogenic bladder with chronic indwelling Cristobal catheter -Catheter changed in ED. -UA large leukocyte esterase, 123 WBCs, few bacteria and WBC clumps present. -Urine culture with no growth, however patient already on antibiotics at that time as above. # Anal wall thickening with large rectal fecal burden on imaging # Chronic constipation. -Prior to admission on narcotics, patient reluctant for bowel meds as reports difficulty with woundcare for decubitus ulcer. -CT abdomen and pelvis with no small bowel obstruction. Large rectal fecal burden. Anal wall thickening is likely related to chronic inflammation. -Scheduled bowel meds. As needed bowel meds, suppository ordered. -Minimize narcotic use. -Colorectal surgery following # Physical deconditioning from medical illness, chronic debility. # Transverse myelitis with paraplegia. Lives at home with her daughter, has home care. Reports mostly bedbound, uses motorized wheelchair as needed. Now reporting generalized weakness. -Address medical issues as discussed above. -Fall precautions. -PT, OT evaluation # Chronic pain on narcotics. -Patient has chronic pain issues exacerbated by acute issues as above. -Pain team following -Continue Tylenol, Atarax and gabapentin. -Dilaudid as mentioned above -Please see progress note from pain team from today, i.e. 05/21/2024 # Moderate atherosclerotic disease. # Chronic heart failure with preserved EF [last EF greater than 75% from 01/14/2023] # Atrial fibrillation not on anticoagulation. # Hypertension - BUSINESS MANAGEMENT CONSULTANT Lasix held on admission. Restarted on 05/12/2024 - Continue BUSINESS MANAGEMENT CONSULTANT Toprol, switch to immediate release 25 mg twice daily with hold parameters. - BUSINESS MANAGEMENT CONSULTANT not on aspirin or statin. Defer further cardiac workup to outpatient. # Hypokalemia-resolved -Replace per protocol # Obstructive sleep apnea -Uses BiPAP as outpt. Has chronic CO2 retention. -BiPAP per home settings. # Rheumatoid arthritis -Continue on BUSINESS MANAGEMENT CONSULTANT on prednisone 10 mg daily. # Chronic Anemia likely secondary to chronic disease. -Baseline hemoglobin 9-10 range. -Hemoglobin at around previous baseline. # Incidental renal stones. CT - No hydronephrosis. Nonobstructive right renal pelvic stones including 13 mm right UPJ calculus. - Recommend follow-up with urology as outpatient if symptomatic. # Diabetes mellitus with a hemoglobin A1c of 6.6. -BUSINESS MANAGEMENT CONSULTANT not on meds. BS are 94 - 128 -Blood sugar adequately controlled at the moment Diet: Snacks/Supplements Adult: Expedite Bottle; With Meals Snacks/Supplements Adult: Ensure Max Protein (bariatric); Between Meals Diet Low Fiber Diet Diet DVT Prophylaxis: Enoxaparin (Lovenox) SQ Cristobal Catheter: PRESENT, indication: Other (Comment) (chronic) Lines: PRESENT Cardiac Monitoring: None Code Status: No CPR- Pre-arrest intubation OK Clinically Significant Risk Factors # Hypoalbuminemia: Lowest albumin = 3.2 g/dL at 05/10/2024 2:44 PM, will monitor as appropriate # DMII: A1C = 6.6 % (Ref range: <5.7 %) within past 6 months # Overweight: Estimated body mass index is 27.64 kg/m?? as calculated from the following: Height as of this encounter: 1.524 m (5'). Weight as of this encounter: 64.2 kg (141 lb 8.6 oz). # Financial/Environmental Concerns: none Disposition Plan Medically Ready for Discharge: Ready Now Forrest Garcia DO Hospitalist Service [facility] Securely message with [facility] (more info) Text page via [employer] Paging/Directory Interval History Patient seen and examined. No acute events over night. Pain controlled. No difficulty breathing. Nonausea or vomiting. Physical Exam Vital Signs: Temp: 98.1 ??F (36.7 ??C) Temp src: Oral BP: 103/45 Pulse: 76 Resp: 19 SpO2: 91 % O2 Device: None (Room air) Weight: 141 lbs 8.57 oz General Appearance: Resting comfortably. NAD Respiratory: No respiratory distress Cardiovascular: RRR GI: Non-distended. Ostomy noted Skin: No obvious rashes or cyanosis Other: Alert and pleasant Medical Decision Making 40 MINUTES SPENT BY ME on the date of service doing chart review, history, exam, documentation & further activities per the note. Data PAST 24 HR DATA REVIEWED Imaging results reviewed over the past 24 hrs: No results found for this or any previous visit (from the past 24 hour(s)). * Jessica Rudolph RN - 05/25/2024 2:32 PM CDT Images from the original note were not included. [facility] Nurse Inpatient Assessment Consulted for: Colostomy, buttock wounds Summary: New colostomy 05-18-24 for improved wound hygiene. Stoma viable, output WNL. Supplies for discharge in room. Pouch changed 05/24, no family present. Patient reports daughterElvi is primary child care counselor who will perform ostomy changes POA wounds to buttock x3 stage 4, noted stable /stable on follow up assessment 05/25. Changed to daily dressing changes Patient History (according to provider note(s): 78 year old female with medical history of history of transverse myelitis, paraplegia, neurogenic bladder with chronic indwelling Cristobal catheter, decubitus ulcers with chronic osteomyelitis, RA on chronic prednisone therapy, HUI, HFpEF, atrial fibrillation, hypertension, gastric ulcer presented tot ED with weakness. Assessment: Areas visualized during today's visit: Focused: and Abdomen Assessment of new end Colostomy: Diagnosis Pertinent to Stoma: constipation and stage 4 pressure injury wounds Surgery Date: 05/18/24 Surgeon: Dr. Peter Alfredo [facility]: [facility] Pouching system in place on assessment today: [place] two piece soft convex Pouch barrier status: intact Pouch last changed/wear time: 05/18, 05/20, 05/24 Reason for pouch change today: pouch not changed today Effectiveness of current pouching/ supply plan: Needs soft convexity at discharge Change made with ostomy management today: No Pouching system placed today: [place] 2pc 57mm soft convex with ring and lock n roll pouch remains Supplies: packed for discharge Last photo: 05/24/12 Stoma location: LUQ Stoma size: ~1 3/4 inches, Stoma appearance: viable, healthy, with lumen angled toward 4-5 o'clock and near skin level Mucocutaneous junction: intact on 05/24 Peristomal complication(s): mild serous edema vs blister medially, skin intact- on 05/24 Output: small pasty brown Output volume emptied during visit: 0ml Abdominal assessment: Distended Surgical site(s): glued lap sites dry, intact, scattered bruising NG still in place? No Pain: tender Is patient still on a TIME RECORDER? No Ostomy education assessment: Participant of teaching session today: patient only Education completed today: Stoma assessment, Pouching system assessment , When to seek medical attention, Low fiber diet , Lifestyle adjustments , and Discharge instructions Educational materials/methods: Verbal, Addressed patient/caregiver questions/concerns, and Left packet of information at bedside Education still needed: Pouch change return demonstration and Pouch emptying return demonstration Learning Comprehension: Psychosocial assessment: pt is alert, engaged in education, able to ask questions and observe, patient states I am still not comfortable yet with it being on my body patient declines to participatein pouch emptying 05/21; no family present 05/24 for education Patient readiness for education today: attentive Following today's visit: patient is able to demonstrate; 1. How to empty their pouch? Demo provided and Needs additional practice 2. How to change their pouch? Demo provided and Needs additional practice Preparation for discharge completed: Placed prescription recommendations in discharge navigator forMD to sign, Ensured patient has extra supplies for discharge, Discussed how to order supplies afterdischarge , Ordered samples from global logistics manager after gaining consent from patient/caregiver, Discussed how and when to make an outpatient WOC nurse appointment after discharge, Prepared for discharge home with home care, and Discuss signs/symptoms of when to seek medical attention Preparation for discharge still needed: reinforce teaching; family and pt need hands-on practice Pt support system on discharge: niece and daughter WOC recommend home care? Yes Wound location: buttock, coccyx right ischial tuberosity and right buttock Coccyx and right buttock Right IT view Last photo: 05/18 Wound due to: Pressure Injury x3 stage 4 per historical charting POA Wound history/plan of care: patient reports she has been wheelchair dependent since she was 6 yearsold, denies desire for colostomy, describes history of using different wound modalities including wound vac and vashe, states decreased desire to use wound vac due to previous cumbersome management, informs staff her daughter helps with her cares, states she uses a hospital bed at home and wheelchair with a cushion which is 2 years old, describes having a poor appetite recently Wound base: granulation tissue and non-granular tissue to visible wound bases Palpation of the wound bed: normal Drainage: small Description of drainage: serous and serosanguinous Measurements (length x width x depth, in cm): coccyx 3.5cm x 3cm x 2cm, right buttock 2.8cm x 2.5cmx 8.5cm, right IT 1.5cm x 2.5cm x 2.5cm. Superficial skin stripping to left buttock from mepilex removal n a 6cm x 2 cm area. Tunneling: N/A Undermining: N/A Periwound skin: Superficial erosion Color: pink Temperature: normal Odor: none Pain: moderate, Pain interventions prior to dressing change: 1 hour prior to dressing change provided by primary RN Treatment goal: Heal per patient stated goal, will most likely require plastics for this to occur. Patient requests Dakin's Solution over Vashe for cost. STATUS: improving and stable Supplies ordered: discussed with RN Treatment Plan: 05/11/24 1027 sodium hypochlorite (DAKINS half-strength) external solution Start: 05/11/24 1030, Irrigation, 2 TIMES DAILY, Routine Admin Instructions: Use with wound cares BID to buttock wounds x3 for cleansing and application to gauze for wound packing 05/11/24 1027 Skin care precautions Start: 05/11/24 1026, EFFECTIVE NOW, Routine Comments: Pressure Injury Prevention (PIP) Plan: If patient is declining pressure injury prevention interventions: Explore reason why and address patient's concerns, Educate on pressure injury risk and prevention intervention(s), If patient is still declining, document informed refusal , and Ensure Care team is aware ( provider, charge nurse, etc) Mattress: Follow bed algorithm, reassess daily and order specialty mattress, if indicated. HOB: Maintain at or below 30 degrees, unless contraindicated Repositioning in bed: Every 1-2 hours , Left/right positioning; avoid supine, and Raise foot of bedprior to raising head of bed, to reduce patient sliding down (shear) Heels: Keep elevated off mattress and Pillows under calves Protective Dressing: wound care orders for buttock. Mepilex for protection to other areas Positioning Equipment: as needed Fluidized positioner (#[id number] or #[id number]) to help maintain side lying position. Chair positioning: Chair cushion (#[id number]) , Assist patient to reposition hourly, and Do NOT use a donut for sitting (this increases pressure to smaller area and creates a higher potential for injury) If patient has a buttock pressure injury, or high risk for PI use chair cushion or SPS. Moisture Management: Perineal cleansing /protection: Follow Incontinence Protocol, Avoid brief in bed, Clean and dry skin folds with bathing , and Moisturize dry skin Under Devices: Inspect skin under all medical devices during skin inspection , Ensure tubes are stabilized without tension, and Ensure patient is not lying on medical devices or equipment when repositioned Ask provider to discontinue device when no longer needed. Coccyx, Right buttock, Right IT wounds: Daily Remove dressings gently using a pull/push method, fragile skin. Cleanse surrounding skin with wound cleanser and irrigate depth of wounds with Dakins Solution. Apply no sting barrier film to periwound skin and mild skin stripping on left buttock. Lightly moisten kerlix gauze with Dakins and lightly pack into wound bed. Right IT and Coccyx woundbeds are able to be visualized, Right buttock wound is about 8.5cm in depth and requires about 1 foot of kerlix gauze to pack. Cover with Mepilex 4x4. Follow PIP protocol Colostomy; LUQ Care EFFECTIVE NOW Comments: LUQ Colostomy pouching plan: Pouching system: ostomy supplies pouches: [place] 70 FECAL ([id number]) ostomy supplies barrier: Alessia 70mm SOFT CONVEX ([id number]) Accessories used: WOC ostomy accessories: 2 Cera Barrier Ring ([id number]) Frequency of pouch changes: PRN leakage and Three times a week WOC follow up plan: Daily Friday-Friday (as able) Bedside RN interventions: Change pouch PRN if leaking using the supplies above, Empty pouch when 1/3 to 1/2 full, ensure to clean pouch outlet after emptying to prevent odor, Notify WOC for ongoing pouch leakage, and Document stoma appearance and output volume, color, and consistency every shift Question Answer Comment Type of Ostomy Colostomy Location LUQ Pouch Change Frequency PRN Leakage Pouch changed by WOC Pouch emptied by Patient to empty with assist Straight Drainage No Orders: Reviewed and Updated RECOMMEND PRIMARY TEAM ORDER: None, at this time Education provided: plan of care, wound progress, and Off-loading pressure Discussed plan of care with: Patient and Nurse WOC nurse follow-up plan: weekly for wound follow up assessment, daily follow up for ostomy teaching after surgery Notify WOC if wound(s) deteriorate. Nursing to notify the Provider(s) and re-consult the WOC Nurse if new skin concern. DATA: Current support surface: Standard Low air loss (MARSHALL pump, Isolibrium, Pulsate) Containment of urine/stool: Indwelling catheter and Colostomy pouch BMI: Body mass index is 27.64 kg/m??. Active diet order: Orders Placed This Encounter Diet Low Fiber Diet Diet Output: I/O last 3 completed shifts: In: - Out: 575 [Urine:575] Labs: Recent Labs Lab 05/21/24 0705 HGB 9.5* WBC 11.2* Pressure injury risk assessment: Sensory Perception: 2-->very limited Moisture: 3-->occasionally moist Activity: 2-->chairfast Mobility: 2-->very limited Nutrition: 3-->adequate Friction and Shear: 1-->problem Brandon Score: 13 Jessica Rudolph [facility] Dept. Vocera- Contact [facility] Nurse (Zaynab) via Vocera Dept. Office Number: [phone] * Elizabeth Hector LSW - 05/25/2024 1:13 PM CDT Care Management Follow Up Length of Stay (days): 15 Expected Discharge Date: 05/26/2024 Concerns to be Addressed: Patient plan of care discussed at interdisciplinary rounds: Yes Anticipated Discharge Disposition: Correction Facility Anticipated Discharge Services: Anticipated Discharge DME: Patient/family educated on Medicare website which has current facility and service quality ratings: Education Provided on the Discharge Plan: Patient/Family in Agreement with the Plan: yes Referrals Placed by CM/SW: Senior Linkage Line, Post Acute Facilities, Transportation Private pay costs discussed: Not applicable Additional Information: [facility] updated that they have not received auth yet, telegraphic typewriter operator rescheduled transport to tomorrow between [phone] - [phone] updated patient CHANTE Smiley * Chel Hoskinssten, JONNATHAN - 05/25/2024 11:50 AM CDT CLINICAL NUTRITION SERVICES - REASSESSMENT NOTE Recommendations Ordered by Registered Dietitian (RD): Continue Ensure Max (switched to chocolate per pt request) Continue daily Expedite Malnutrition: (05/11) % Weight Loss: > 7.5% in 3 months (severe malnutrition) - 9% in 2 months % Intake: No decreased intake noted, per pt report Subcutaneous Fat Loss: None observed Muscle Loss: Clavicle bone region mild depletion Fluid Retention: None noted Malnutrition Diagnosis: Patient does not meet two of the above criteria necessary for diagnosing malnutrition EVALUATION OF PROGRESS TOWARD GOALS Diet: Low Fiber Diet Supplements ~ Ensure Max at 10am Expedite daily at lunch Intake/Tolerance: - 50-100% intakes documented per nursing flowsheets - Tolerating low fiber diet per RN notes - Spoke with patient at bedside. She said her appetite has been great. She is consuming at least 2 meals/day and trying to consume protein at each meal. She said she would like a different flavor than vanilla Ensure Max as she is starting to get burnt out - will change to chocolate. She said she isdrinking Expedite daily. Affirmed and encouraged good po intakes moving forward. ASSESSED NUTRITION NEEDS: Dosing Weight 59.6 kg (admit 05/10) Estimated Energy Needs: 7516-1485 kcals (25-30 Kcal/Kg) Justification: maintenance, wound healing Estimated Protein Needs: 78-89 grams protein (1.3-1.5 g pro/Kg) Justification: wound healing NEW FINDINGS: Meds: lasix, culturell, MVI/M, miralax, senokot, vitamin C, zinc sulfate Labs: not back yet for today Weight: trending up 05/25/24 0705 64.2 kg (141 lb 8.6 oz) Bed scale 05/24/24 0649 64 kg (141 lb 1.5 oz) Bed scale 05/23/24 0645 63.2 kg (139 lb 5.3 oz) Bed scale 05/22/24 0647 61.3 kg (135 lb 2.3 oz) Bed scale 05/21/24 0700 61.5 kg (135 lb 9.3 oz) Bed scale 05/20/24 0600 60.3 kg (132 lb 15 oz) Bed scale 05/19/24 0600 60 kg (132 lb 4.4 oz) Bed scale Skin: WOC following (05/24) ~ Wound location: buttock, coccyx right ischial tuberosity and right buttock Wound due to: Pressure Injury x3 stage 4 per historical charting POA STATUS: improving and stable Previous Goals: Pt to consume 75% meals and 100% wound healing supplements Evaluation: Met on average Previous Nutrition Diagnosis: Increased nutrient needs (protein) related to higher demand for healing as evidenced by pt with noted stage 4 wounds Evaluation: No change CURRENT NUTRITION DIAGNOSIS Increased nutrient needs (protein) related to higher demand for healing as evidenced by pt with noted stage 4 wounds INTERVENTIONS Recommendations / Nutrition Prescription See above Implementation Medical Food Supplement - continue Multivitamin/Mineral - continue Goals Patient to consume >75% of at least BID meals and 1 Expedite bottle/day MONITORING AND EVALUATION: Progress towards goals will be monitored and evaluated per protocol and Practice Guidelines Yarelis Hoskins RD, LD Clinical Dietitian - [facility] * Elizabeth Hector LSW - 05/25/2024 11:39 AM CDT Care Management Follow Up Length of Stay (days): 15 Expected Discharge Date: 05/26/2024 Concerns to be Addressed: Patient plan of care discussed at interdisciplinary rounds: Yes Anticipated Discharge Disposition: Home, Home Care, TCU Anticipated Discharge Services: Anticipated Discharge DME: Patient/family educated on Medicare website which has current facility and service quality ratings: Education Provided on the Discharge Plan: Patient/Family in Agreement with the Plan: yes Referrals Placed by CM/SW: Internal Clinic Care Coordination, Homecare Private pay costs discussed: Not applicable Additional Information: Skid [employer] Man called [facility] and spoke to Mary They still have not heard back about insurance authorization. Patient could still admit today if they do get authorization from [employer] if not we will have to post pone until tomorrow. Skid [employer] Man updated Elvi - patients daughter as she needs to pick up man some items from the room. ADD - telegraphic typewriter operator rescheduled transportation to between 3:30 - 4:30 in case we get insurance authorization CHANTE Smiley * Kallie Pollock OTR - 05/25/2024 10:21 AM CDT 05/25/24 0900 Appointment Info Signing Clinician's Name / Credentials (OT) Kallie Pollock OTR/L Rehab Comments (OT) Initial OT Eval Living Environment Living Environment Comments p lives in house with her daughter, grandchild and spouse who has dementia Self-Care Equipment Currently Used at Home hospital bed;lift device;wheelchair, manual Fall history within last six months no Activity/Exercise/Self-Care Comment pt stays in the bed largely 2/2 wound. sherly completes all ADL and IADL for pt in the bed. pt does not self propell WC. she will sit in the wheelchair lucho.dustin lift for tx. Ax1 for rolling L<>R for kwabena cares and would cares. pt can typically hold herself in sidelying indp while daughter does her kwabena cares and wounds Bed Mobility Bed Mobility rolling left Rolling Left [place] (Bed Mobility) 2 person assist;moderate assist (50% patient effort) Assistive Device (Bed Mobility) draw sheet;bed rails Transfers Transfer Comments dep dustin lift Activities of Daily Living BADL Assessment/Intervention feeding (pt dep for all other ADLs) Eating/Self Feeding [place] Level (Feeding) set up Comment, (Feeding) seated Clinical Impression Criteria for Skilled Therapeutic Interventions Met (OT) Yes, treatment indicated OT Diagnosis decreasd mobility and ADL OT Problem List-Impairments impacting ADL problems related to;pain Identified Performance Deficits rolling Planned Therapy Interventions (OT) bed mobility training (caregiver education, pain reduction techniques) Clinical Decision Making Complexity (OT) problem focused assessment/low complexity Risk & Benefits of therapy have been explained evaluation/treatment results reviewed;care plan/treatment goals reviewed;risks/benefits reviewed;current/potential barriers reviewed;participants voiced agreement with care plan;participants included;patient OT Total Evaluation Time OT Eval, Low Complexity Minutes (13477) 20 OT Goals Therapy Frequency (OT) 3 times/week OT Predicted Duration/Target Date for Goal Attainment 05/29/24 OT Goals OT Goal 1;OT Goal 2 OT: Goal 1 Pt will verbalize understanding of recommendations and education OT: Goal 2 Pt will demo rolling to L with mod A, rail and draw sheet to sim home set up Interventions Interventions Quick Adds Therapeutic Activity Therapeutic Activities Therapeutic Activity Minutes (52480) 8 Treatment Detail/Skilled Intervention extended time with pt discussing positioning and modifications, techniques for pain reduction in increase rolling tolerance. demo'd rolling mod Ax2 and sidelyingfor 30 second intervals 4x. uses rails and bed sheet needed. end of session pt reports increased pain, all needs in reach, alarm on, very plesant OT Discharge Planning OT Plan rolling Ax1 if pain controlled OT Discharge Recommendation (DC Rec) home with assist OT Rationale for DC Rec pt is dustin lift dep at baseline and Ax1 for all ADL/cares in hospital bed at home. pt only new limitation at this time is pain, otherwise she is at her baseline in strength, ROM, coordination, sensation,etc.. pt typicaly able to roll for cares in bed Ax1. at this time she requires Ax2 because of pain. she would be appropiate for home discharge with Ax2 for rolling and cares in bed. if she is not able to have Ax2 at home then she would need placement. anticipate that pt would be able to roll Ax1 if pain was more controlled. she already has all DME/AE at home. pt does not have signficant OT needs. per chart review and conversation with team she does have signficant need for wound cares which warrant placement, see MD and RN notes for details. Total Session Time Timed Code Treatment Minutes 8 Total Session Time (sum of timed and untimed services) 28 * Leela Degroot, AMIRAH EMERGENCY SERVICES PROFESSIONAL - 05/25/2024 7:18 AM CDT Images from the original note were not included. [facility] ACUTE PAIN SERVICE CONSULTATION [facility] Text Page Pain Via [facility] Leela Assessment and Plan Prerna Major is a 78 year old female who was admitted on 05/10/2024. 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 Discharge tto TCU is planned for today. Opioid Induced Respiratory Depression Risk: moderate due age,medical frailty paraplegia Home MME= 22.5 mg Opioids used past 24 hr= 80 mg MME Prior 24 hrs = 96 mg MME Plan: Discharge recommendations Lyrica 75 mg tid could consider increasing to 100 mg bid in 3-5 day or 75 mg am 150 pm Dilaudid 4 mg every 4 hrs prn Do not resume gabapentin Diclofenac gel 2 grams to left shoulder righ hipand around colostomy area Lidocaine patches to left shoulder, right hip and cut around decubitus area Subjective: Pain stable. / continued increase pain at colostomy site with turning to left as if insides are pulling. Tolerating transition from gabapentin to pregabalin.No SOB, chest pain lower grade fever. Passing gas and had stool in bag Principal Problem: Osteomyelitis of coccyx (H) Intake/Output Summary (Last 24 hours) at 05/25/2024 0824 Last data filed at 05/25/2024 0706 Gross per 24 hour Intake -- Output 1925 ml Net -1925 ml Wt Readings from Last 2 Encounters: 05/25/24 64.2 kg (141 lb 8.6 oz) 03/14/24 65.3 kg (143 lb 15.4 oz) Body mass index is 27.64 kg/m??. Review Of Systems as per subjective Last Comprehensive Metabolic Panel: Lab Results Component Value Date NA 143 05/21/2024 POTASSIUM 3.4 05/21/2024 CHLORIDE 104 05/21/2024 CO2 32 (H) 05/21/2024 ANIONGAP 7 05/21/2024 GLC 96 05/21/2024 BUN 31.0 (H) 05/21/2024 CR 0.44 (L) 05/21/2024 GFRESTIMATED >90 05/21/2024 HOLLY 8.6 (L) 05/21/2024 Relevant labs reviewed Exam Alert oriented NAD Resp even chest rise symmetrical Skin color good , cristobal Neuro: upper ext DANGELO Psyche: more cheerful out look improved Also discussed with RN, Hospital Medicine Service, I Discussed and educated the pain plan with the patient regarding: multimodal pain approach, single opioid use, increase titration of lyrica if indicated, advised to take no more than the prescribed dose as increased doses may cause respiratory depression or , and hold home oxycodone and use dialudid. Treatment plan includes: multimodal pain approach, Hospital Medicine Service for medical management. No medication changes advised prior to discharge Elements of Medical Decision Making as described above. High level of decision making required due to 1 or more chronic illness with severe exacerbation, progression, and side effects of treatment. Acute or chronic illness or injury or surgery. High risk therapy including opioids, high risk drug therapy including oral and/or parenteral controlled substances. Please see A&P for additional details of medical decision making. Medical complexity over the past 24 hours: 15 MINUTES SPENT BY ME on the date of service doing chart review, history, exam, documentation & further activities per the note. Patient is understanding of the plan. All questions and concerns addressed to patient's satisfaction. NUBIA BowerC,ELECTRICIAN ASSISTANT,EMERGENCY SERVICES PROFESSIONAL,ACHPN Secure messaging with [employer] Paging/Directory [facility] Hours 8-4:00 Friday-Friday after 3:30 contact hospital service covering provider * Mateo Henry RN - 05/25/2024 6:23 AM CDT Date & Time: 05/24/24, 2795-6240 Surgery/POD#: POD6/7 diverting colostomy Hx: Chronic osteomyelitis, decubitus ulcers, neurogenic bladder w/ chronic cristobal, RA, HUI, HFpEF, Afib, MRSA infection Behavior & Aggression: Green Fall Risk: Yes Orientation: AO4 VS/O2: VSS RA ABNL Labs/Results: See results tab. Pain Management: PRN PO dilaudid GI/: Chronic cristobal, adequate UOP. Colostomy in place w/ liquid OP. IV/Lines: Midline SL Skin/Wounds/Incisions: Abd lap sites CDI; buttock wounds x3, MIKAYLA, pt refused wound cares this shift. Blanchable redness in abdominal folds, interdry in place. Diet: Tolerating low fiber Activity Level: A2 lift/repo; BLE paraplegia Anticipated DC Date: Today (05/25) Significant Information: Plan to discharge 05/25 to [facility] possibly pending PT/OT to see for insurance approval. Ride is currently scheduled for between [id number]. * Maribel Clayton RN - 05/24/2024 11:50 PM CDT Surgery: POD #6 Laparoscopic diverting colostomy Behavior & Aggression: Green Fall Risk: Yes Orientation: A&Ox4 ABNL VS/O2: VSS on RA ABNL Labs: Hb.5 Pain Management: PRN PO Dilaudid given Bowel/Bladder: neurogenic bladder: Cristobal catheter in place with adequate output. BS audible: Colostomy in place, passing gas. PIV: Midline in place- SL Wounds/incisions: Abdominal lap sites: OSKAR. Buttock wounds- CDI, patient refused dressing change this evening. Redness to abdominal folds: interdry in place. Diet: Low fiber- tolerating Activity Level: Ax2 turn & repo Anticipated DC Date: Plan to discharge tomorrow to [facility] TCU * Elizabeth Hector LSW - 05/24/2024 2:51 PM CDT Care Management Follow Up Length of Stay (days): 14 Expected Discharge Date: 05/25/2024 Concerns to be Addressed: Patient plan of care discussed at interdisciplinary rounds: Yes Anticipated Discharge Disposition: Home, Home Care, TCU Anticipated Discharge Services: Anticipated Discharge DME: Patient/family educated on Medicare website which has current facility and service quality ratings: Education Provided on the Discharge Plan: Patient/Family in Agreement with the Plan: yes Referrals Placed by CM/SW: Internal Clinic Care Coordination, Homecare Private pay costs discussed: Not applicable Additional Information: [employer]id [employer] Man received message from [facility] that they can accept patient into their TCU. They willrun her insurance auth for acceptance. They asked telegraphic typewriter operator to schedule a ride for tomorrow. Skid [address] Man will update patient Skid [employer] Man arranged tentative transport using [employer]...Exactly stretcher, patient aware of costs, ride time is for between 1410 - 1450 [facility] noticed patient does not have Pt/OT notes on file and may need an assessment in order to get auth from insurance. Skid [employer] Man sent provider a message asking for PT/OT to see CHANTE Smiley * Zane Leelarome Guillaume, AMIRAH EMERGENCY SERVICES PROFESSIONAL - 05/24/2024 11:45 AM CDT Images from the original note were not included. [facility] ACUTE PAIN SERVICE [facility] PAIN Progress Note Assessment/Plan: Assessment/Plan: Prerna Major is a 78 year old female who was admitted on 05/10/2024. Pain team was asked to see the patient for acute postoperative pain in the setting of chronic pain associated with decubitus ulcers buttocks and hip, rheumatoid arthritis on low dose chronic opioid therapy in patient with history of traverse myelitis and paraplegia. Admitted for planned procedure. 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 The patient does not smoke and no chemical dependency history. Post op day: 3 Days Post-Op. Laparoscopic diverting colostomy, N/A - Abdomen Opioid Induced Respiratory Depression Risk Assessment moderate due to age medical frailty paraplegia CrCl 87.7 mg/mL The patient's home MME was 22.5 mg daily. In the last 24 hours, patient has utilized Dilaudid 4 mg ( 6), for an 96 mg MME mg (yesterday MME was -- mg). PLAN: 1) Pain is consistent with musculoskeletal and visceral pain type in the setting of planned colostomy and chronic pain. Consider the following differentials pain associated with acute procedure. Multimodal Medication Therapy Topical: continue Diclofenac, lidocaine patches and lidocaine gel NSAID'S: no recommended Steroids: continue chronic prednisone Muscle Relaxants: methocarbamol ( Robaxin) qid Adjuvants:add Hydroxyzine 10 mg tid acetaminophen (Tylenol) scheduled, stop gabapentin 400 mg tid phar liaison for potential crossover to Lyrica approved start 75 mg tid Antidepressants/anxiolytics:none Opioids: Increase Dilaudid to 2-4 mg every 3 hrs prn Pharm liaison consult butrans patch noted Butrans cost prohibitive to patient at $100.00 /month IV Pain medication: not indicated Non-medication interventions: Ice, Heat, Rest, PT, OT, Distraction (TV, Music, Reading), and abdominal binder with turning to left for drsg changes Constipation Prophylaxis: Scheduled and prn: Senna-docusate -Opioid prescriber Flo Lanier MD -[place] [employer] pulled from system on no controlled substance note . Discussed by patrice Mars PharmD covering floor and verified script of Oxycodone at last discharge and othe script of Oxycodone consistently from [facility] This indicates discrepancy Discharge Recommendations - We recommend noted on pharmacy admission record oxyCODONE (ROXICODONE) 5 MG tablet Take 7.5 mg by mouth every 4 hours as needed for severe pain 05/10/2024 Prescribing the following at the time of discharge: hosptial medication TBD Intranasal naloxone not recommended. script was sent to the pharmacy. Follow up wound management general surgery . Acute pain service will continue to follow. Disposition: TBD maybe TCU Subjective: Describes pain as 7/10 and goal of of 6/10 in the non radiating. Turning to left side and changing bag increase pain. Decubitus pain stable.The patient denies nausea, vomiting, constipation, diarrhea, chest pain, shortness of breath, dizziness, and chills. The patient reports fever low grade, passing flatus. Principal Problem: Osteomyelitis of coccyx (H) Patient Active Problem List Diagnosis UTI (urinary tract infection) SOB (shortness of breath) Pyelonephritis Paraplegia (H) Elevated lactic acid level Fever in adult Septic shock (H) Urinary tract infection without hematuria, site unspecified Pressure injury of skin, unspecified injury stage, unspecified location Acute cystitis with hematuria Osteomyelitis of coccyx (H) Chronic indwelling Cristobal catheter Chronic osteomyelitis (H) Objective: History Drug Use Not on file Tobacco Use Smoking status: None Smokeless tobacco: None Vital signs in last 24 hours: BP (!) 146/58 (BP Location: Left arm) Pulse 77 Temp 99.1 ??F (37.3 ??C) (Oral) Resp 17 Ht 1.524 m (5') Wt 64 kg (141 lb 1.5 oz) SpO2 95% BMI 27.56 kg/m?? Weight: Vitals: 05/20/24 0600 05/21/24 0700 05/22/24 0647 05/23/24 0645 Weight: 60.3 kg (132 lb 15 oz) 61.5 kg (135 lb 9.3 oz) 61.3 kg (135 lb 2.3 oz) 63.2 kg (139 lb 5.3 oz) 05/24/24 0649 Weight: 64 kg (141 lb 1.5 oz) Weight change: 0.8 kg (1 lb 12.2 oz) Body mass index is 27.56 kg/m??. Intake/Output last 3 shifts: I/O last 3 completed shifts: In: 510 [P.O.:510] Out: 1825 [Urine:1650; Stool:175] Intake/Output this shift: No intake/output data recorded. Review of Systems: As per subjective, all others negative. Physical Exam: General Appearance: Alert, cooperative, no distress, appears stated age Head: Normocephalic, without obvious abnormality, atraumatic Eyes: PERRL,normal size, conjunctiva/corneas clear, EOM's intact Nose: Nares normal, septum midline Throat: Lips, mucosa, and tongue normal; teeth and gums normal Neck: Supple, symmetrical, trachea midline Back: Symmetric, no curvature, ROM normal Lungs: Clear to auscultation bilaterally, respirations unlabored Chest Wall: No tenderness or deformity Heart: Regular rate and rhythm, S1, S2 normal Abdomen: Soft, non-tender, bowel sounds active all four quadrants, no masses, no organomegaly Extremities: Extremities normal, atraumatic, no cyanosis or edema Skin: Skin color, texture, turgor normal, no rashes or lesions Neurologic: Alert and oriented X 3, Moves all 4 extremities Psych: Affect is euthymic a little depressedwith coloctomy and increase pain aberrant Pain behaviors No Labs Imaging and Notes Reviewed : Reviewed I have personally reviewed pertinent notes, labs, tests,and radiologic report and imaging in patient's chart. Also discussed with RN, Hospital Medicine Service, and discharge pharmacy Raven Deleon. I discussed and educated the pain plan with the patient regarding: multimodal pain approach, medications as listed above, watch for constipation and stool softeners, advised to take no more than the prescribed dose as increased doses may cause respiratory depression or , and hold home oxycodone and use dialudid. Treatment plan includes: multimodal pain approach, Hospital Medicine Service for medical management. Elements of Medical Decision Making as described above. High level of decision making required due to 1 or more chronic illness with severe exacerbation, progression, and side effects of treatment. Acute or chronic illness or injury or surgery. High risk therapy including opioids, high risk drug therapy including oral and/or parenteral controlled substances. Please see A&P for additional details of medical decision making. Medical complexity over the past 24 hours: - Prescription DRUG MANAGEMENT performed - cross over to lyrica and stop gabapentin 15 MINUTES SPENT BY ME on the date of service doing chart review, history, exam, documentation & further activities per the note. Patient is understanding of the plan. All questions and concerns addressed to patient's satisfaction. Leela Degroot APRN,CONY, ACHPN, PGMT- Acute Care Pain Management Program [facility] Friday-Friday 8a-4p Page via [employer] or [employer] * Elizabeth Hector LSW - 05/24/2024 11:27 AM CDT Images from the original note were not included. Care Management Follow Up Length of Stay (days): 14 Expected Discharge Date: 05/26/2024 Concerns to be Addressed: Patient plan of care discussed at interdisciplinary rounds: Yes Anticipated Discharge Disposition: Home, Home Care, TCU Anticipated Discharge Services: Anticipated Discharge DME: Patient/family educated on Medicare website which has current facility and service quality ratings: Education Provided on the Discharge Plan: Patient/Family in Agreement with the Plan: yes Referrals Placed by CM/SW: Internal Clinic Care Coordination, Homecare Private pay costs discussed: Not applicable Additional Information: [facility] checked on pending referral for TCU with pa Buckner. They have multiple locations. Aetnainsurance is very limited The following are pending referrals [facility] [place] (SNF) Pending - Request Sent N/A [address] [facility] [id number] [phone] -- Internal Comment last updated by Roel Holcomb MA 05/24/2024 8:05 AM 05/24 0756 sent email to admissions ~ap [facility] ([facility]) Pending - Request Sent N/A [address]14 [facility] [phone] -- [facility] ([facility]) Pending - Request Sent N/A [address] [facility] [phone] -- [facility] () Pending - Request Sent N/A [address] [facility] [phone] -- Current Capacity last updated by Paul Tang RN on 05/13/2024 10:01 AM Admissions: Mary [phone] Monie [phone] - [facility] ([facility]) Pending - Request Sent N/A [address] [facility] [address] -- [facility] () Pending - Request Sent N/A [address] [facility] [id number] [phone] -- Current Capacity last updated by Mercy Aguilar MA on 04/06/2024 9:55 AM Non smoking - Send full referral - *[facility] SENIOR CARE: Avery Lopez ph. [phone] (note that referral is for Ali)* Katie Snyder ([facility]) Pending - Request Sent N/A [address] [facility] [phone] -- CHANTE Smiley * Izzy Marie RN - 05/24/2024 10:57 AM CDT Images from the original note were not included. [facility] Nurse Inpatient Assessment Consulted for: Colostomy, buttock wounds Summary: New colostomy 05-18-24 for improved wound hygiene. Stoma viable, output WNL. Supplies for discharge in room. Pouch changed 05/24, no family present. 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 BID dressing changes remain ideal but if can only do once a day on discharge this is acceptable. [facility] planning to follow-up on wounds/plan on 05/25 vs Fri as able. Patient History (according to provider note(s): 78 year old female with medical history of history of transverse myelitis, paraplegia, neurogenic bladder with chronic indwelling Cristobal catheter, decubitus ulcers with chronic osteomyelitis, RA on chronic prednisone therapy, HUI, HFpEF, atrial fibrillation, hypertension, gastric ulcer presented tothe ED with weakness. Assessment: Areas visualized during today's visit: Focused: and Abdomen Assessment of new end Colostomy: Diagnosis Pertinent to Stoma: constipation and stage 4 pressure injury wounds Surgery Date: 05/18/24 Surgeon: Dr. Peter Alfredo [facility]: [facility] Pouching system in place on assessment today: [place] two piece Pouch barrier status: intact Pouch last changed/wear time: Reason for pouch change today: pouch not changed today Effectiveness of current pouching/ supply plan: Needs soft convexity at discharge Change made with ostomy management today: No Pouching system placed today: Alessia 2pc 57mm flat with ring and lock n roll pouch remains Supplies: packed for discharge Last photo: 05/24/12 Stoma location: LUQ Stoma size: ~1 3/4 inches, Stoma appearance: viable, healthy, with lumen angled toward 4-5 o'clock and near skin level Mucocutaneous junction: intact Peristomal complication(s): mild serous edema vs blister medially, skin intact Output: small runny brown Output volume emptied during visit: ~50ml Abdominal assessment: Distended Surgical site(s): glued lap sites dry, intact, scattered bruising NG still in place? No Pain: tender Is patient still on a TIME RECORDER? No Ostomy education assessment: Participant of teaching session today: patient only Education completed today: Stoma assessment, When to seek medical attention, Lifestyle adjustments , and Discharge instructions Educational materials/methods: Verbal, Addressed patient/caregiver questions/concerns, and Left packet of information at bedside Education still needed: Pouch change return demonstration and Pouch emptying return demonstration Learning Comprehension: Psychosocial assessment: pt is alert, engaged in education, able to ask questions and observe, patient states I am still not comfortable yet with it being on my body patient declines to participatein pouch emptying 05/21; no family present 05/24 for education Patient readiness for education today: attentive Following today's visit: patient is able to demonstrate; 1. How to empty their pouch? Demo provided and Needs additional practice 2. How to change their pouch? Demo provided and Needs additional practice Preparation for discharge completed: Placed prescription recommendations in discharge navigator forMD to sign, Ensured patient has extra supplies for discharge, Discussed how to order supplies afterdischarge , Ordered samples from global logistics manager after gaining consent from patient/caregiver, Discussed how and when to make an outpatient WOC nurse appointment after discharge, Prepared for discharge home with home care, and Discuss signs/symptoms of when to seek medical attention Preparation for discharge still needed: reinforce teaching; family and pt need hands-on practice Pt support system on discharge: niece and daughter [facility] recommend home care? Yes Buttock assessment copied for continuity 05/24, not assessed this date Wound location: buttock, coccyx right ischial tuberosity and right buttock Coccyx and right buttock Right IT view Last photo: 05/18 Wound due to: Pressure Injury x3 stage 4 per historical charting POA Wound history/plan of care: patient reports she has been wheelchair dependent since she was 6 yearsold, denies desire for colostomy, describes history of using different wound modalities including wound vac and vashe, states decreased desire to use wound vac due to previous cumbersome management, informs staff her daughter helps with her cares, states she uses a hospital bed at home and wheelchair with a cushion which is 2 years old, describes having a poor appetite recently Wound base: granulation tissue and non-granular tissue to visible wound bases Palpation of the wound bed: normal Drainage: moderate to large Description of drainage: serous and serosanguinous Measurements (length x width x depth, in cm): coccyx 3.5cm x 3cm x 3.5cm, right buttock 2.5cm x 4.5cm x 10.5cm, right IT 2.5cm x 2.5cm x 2.5cm , unchanged 05/18 Tunneling: N/A Undermining: N/A Periwound skin: Intact Color: normal and consistent with surrounding tissue Temperature: normal Odor: none resolved 05/18 Pain: moderate, Pain interventions prior to dressing change: 1 hour prior to dressing change provided by primary RN Treatment goal: Heal per patient stated goal STATUS: improving and stable Supplies ordered: discussed with RN Treatment Plan: 05/11/24 1027 sodium hypochlorite (DAKINS half-strength) external solution Start: 05/11/24 1030, Irrigation, 2 TIMES DAILY, Routine Admin Instructions: Use with wound cares BID to buttock wounds x3 for cleansing and application to gauze for wound packing 05/11/24 102 Skin care precautions Start: 05/11/24 1026, EFFECTIVE NOW, Routine Comments: Pressure Injury Prevention (PIP) Plan: If patient is declining pressure injury prevention interventions: Explore reason why and address patient's concerns, Educate on pressure injury risk and prevention intervention(s), If patient is still declining, document informed refusal , and Ensure Care team is aware ( provider, charge nurse, etc) Mattress: Follow bed algorithm, reassess daily and order specialty mattress, if indicated. HOB: Maintain at or below 30 degrees, unless contraindicated Repositioning in bed: Every 1-2 hours , Left/right positioning; avoid supine, and Raise foot of bedprior to raising head of bed, to reduce patient sliding down (shear) Heels: Keep elevated off mattress and Pillows under calves Protective Dressing: wound care orders for buttock. Mepilex for protection to other areas Positioning Equipment: as needed Fluidized positioner (#[id number] or #[id number]) to help maintain side lying position. Chair positioning: Chair cushion (#[id number]) , Assist patient to reposition hourly, and Do NOT use a donut for sitting (this increases pressure to smaller area and creates a higher potential for injury) If patient has a buttock pressure injury, or high risk for PI use chair cushion or SPS. Moisture Management: Perineal cleansing /protection: Follow Incontinence Protocol, Avoid brief in bed, Clean and dry skin folds with bathing , and Moisturize dry skin Under Devices: Inspect skin under all medical devices during skin inspection , Ensure tubes are stabilized without tension, and Ensure patient is not lying on medical devices or equipment when repositioned Ask provider to discontinue device when no longer needed. Wound care Start: 05/11/24 1800, 2 TIMES DAILY, Routine Comments: Location: buttock x3 (right IT) Care: provided BID and PRN for soiling by primary RN 1. Remove dressings 2. Cleanse and Irrigate the wounds and periwound skin with Dakins solution per MAR BID (sodium hypochlorite DAKINS half-strength external solution), irrigate and flush the wounds with the solution, wet 4x4 gauze and scrub in gentle circles. Then pat dry 3. Apply skin prep (3M no sting skin barrier film or sure prep) to wound edges and periwound skin, let dry 4. Wet some rosy roll gauze or kerlix with Dakins solution, use a cotton tipped applicator to tuckinto wound bases for packing, do NOT over pack - this will cause pain and tissue damage, do pack the moist gauze all the way to the base or deepest part of the wound 5. Secure with 4x4 mepilex, ok to use each up to 5 days or until drainage is saturating the foam touching three corners, ok to lift for routine skin assessments 05/11/24 1026 Nutrition Services Adult IP Consult ONE TIME Complete References: Medical Nutrition Therapy policy and MNT protocol Provider: (Not yet assigned) Question Answer Comment Reason for Consult: RN Consult - specify Reason Reason for Consult: wound healing support needs 05/18/24 0929 Wound care ONE TIME Comments: 05/18/24 Before OR Today 1x: Primary RN to remove dressings, cleanse and irrigate with dakins solution, apply mepilex bandages including mepilex sacral over sacrum before going to surgery (okto follow current plan of care for wound care before and after OR 05/18) Colostomy; LUQ Care EFFECTIVE NOW Comments: LUQ Colostomy pouching plan: Pouching system: ostomy supplies pouches: Alessia 70 FECAL ([id number]) ostomy supplies barrier: [place] 70mm SOFT CONVEX ([id number]) Accessories used: WOC ostomy accessories: 2 Cera Barrier Ring ([id number]) Frequency of pouch changes: PRN leakage and Three times a week WOC follow up plan: Daily Friday-Friday (as able) Bedside RN interventions: Change pouch PRN if leaking using the supplies above, Empty pouch when 1/3 to 1/2 full, ensure to clean pouch outlet after emptying to prevent odor, Notify WOC for ongoing pouch leakage, and Document stoma appearance and output volume, color, and consistency every shift Question Answer Comment Type of Ostomy Colostomy Location LUQ Pouch Change Frequency PRN Leakage Pouch changed by WOC Pouch emptied by Patient to empty with assist Straight Drainage No Orders: Reviewed RECOMMEND PRIMARY TEAM ORDER: None, at this time Education provided: plan of care, wound progress, and Off-loading pressure Discussed plan of care with: Patient and Nurse WOC nurse follow-up plan: weekly for wound follow up assessment, daily follow up for ostomy teaching after surgery Notify WOC if wound(s) deteriorate. Nursing to notify the Provider(s) and re-consult the WOC Nurse if new skin concern. DATA: Current support surface: Standard Low air loss (MARSHALL pump, Isolibrium, Pulsate) Containment of urine/stool: Indwelling catheter and Colostomy pouch BMI: Body mass index is 27.56 kg/m??. Active diet order: Orders Placed This Encounter Diet Low Fiber Diet Output: I/O last 3 completed shifts: In: 510 [P.O.:510] Out: 1825 [Urine:1650; Stool:175] Labs: Recent Labs Lab 05/21/24 0705 HGB 9.5* WBC 11.2* Pressure injury risk assessment: Sensory Perception: 2-->very limited Moisture: 3-->occasionally moist Activity: 1-->bedfast Mobility: 2-->very limited Nutrition: 3-->adequate Friction and Shear: 1-->problem Brandon Score: 12 Izzy Marie RN CWOCN -Securely message with [facility] ([facility]) Preferred -[facility] Office (messages checked periodically Fri-Fri 8a-4p) * Chris Son MD - 05/24/2024 9:41 AM CDT [facility] Medicine Progress Note - Hospitalist Service Date of Admission: 05/10/2024 Assessment & Plan Prerna Major is a 78 year old female with medical history of history of transverse myelitis, paraplegia, neurogenic bladder with chronic indwelling Cristobal catheter, decubitus ulcers with chronic osteomyelitis, RA on chronic prednisone therapy, HUI, HFpEF, atrial fibrillation, hypertension, gastric ulcer presented to the ED with weakness. Workup revealed acute osteomyelitis of the coccyx. Patient underwent diverting colostomy on 05/18/2024 for improved wound hygiene # Sepsis likely from infected decubitus ulcer # Osteomyelitis involving the coccyx # Chronic osteomyelitis involving the right ischium. # Chronic decubitus ulcer. # History of MRSA infection. -Recent admission at [facility] between 03/07-03/14/2024 for septic shock secondary to E. coli UTI with bacteremia, readmitted at [facility] on 03/21/2024 with severe sepsis and another admission at [facility] between 03/24-03/31 2024 -Presented here with abdominal discomfort associated with nausea and fever -CT abdomen and pelvis on 05/10/2024 showed multiple decubitus ulcer, suspicious for acute osteomyelitis involving the coccyx and chronic osteomyelitis involving the right ischium. No drainable fluid collection -General Surgery also followed, they recommended diverting colostomy. No need for debridement. -Infectious disease also followed - Initially on IV meropenem, subsequently transitioned to Augmentin and doxycycline. Completed antibiotic course per ID recommendation on 05/20/2024. - Underwent diverting colostomy on 05/18/2024 - Continue low fiber diet -Pain control as needed, pain team following, patient still having significant pain for dressing changes and she does not think she will have adequate help at home to achieve this -Discontinued IV narcotics. Continue as needed oral Dilaudid -Patient agreed to consider TCU. Discussed with social work and updated -Lovenox for DVT prophylaxis -Wound care team following, appreciate recs. # Urinary tract infection-catheter related. # Neurogenic bladder with chronic indwelling Cristobal catheter -Catheter changed in ED. -UA large leukocyte esterase, 123 WBCs, few bacteria and WBC clumps present. -Urine culture with no growth, however patient already on antibiotics at that time as above. # Anal wall thickening with large rectal fecal burden on imaging # Chronic constipation. -Prior to admission on narcotics, patient reluctant for bowel meds as reports difficulty with woundcare for decubitus ulcer. -CT abdomen and pelvis with no small bowel obstruction. Large rectal fecal burden. Anal wall thickening is likely related to chronic inflammation. -Scheduled bowel meds. As needed bowel meds, suppository ordered. -Minimize narcotic use. -Colorectal surgery following # Physical deconditioning from medical illness, chronic debility. # Transverse myelitis with paraplegia. Lives at home with her daughter, has home care. Reports mostly bedbound, uses motorized wheelchair as needed. Now reporting generalized weakness. -Address medical issues as discussed above. -Fall precautions. -PT, OT evaluation # Chronic pain on narcotics. -Patient has chronic pain issues exacerbated by acute issues as above. -Pain team following -Continue Tylenol, Atarax and gabapentin. -Dilaudid as mentioned above -Please see progress note from pain team from today, i.e. 05/21/2024 # Moderate atherosclerotic disease. # Chronic heart failure with preserved EF [last EF greater than 75% from 01/14/2023] # Atrial fibrillation not on anticoagulation. # Hypertension - BUSINESS MANAGEMENT CONSULTANT Lasix held on admission. Restarted on 05/12/2024 - Continue BUSINESS MANAGEMENT CONSULTANT Toprol, switch to immediate release 25 mg twice daily with hold parameters. - BUSINESS MANAGEMENT CONSULTANT not on aspirin or statin. Defer further cardiac workup to outpatient. # Hypokalemia-resolved -Replace per protocol # Obstructive sleep apnea -Uses BiPAP as outpt. Has chronic CO2 retention. -BiPAP per home settings. # Rheumatoid arthritis -Continue on BUSINESS MANAGEMENT CONSULTANT on prednisone 10 mg daily. # Chronic Anemia likely secondary to chronic disease. -Baseline hemoglobin 9-10 range. -Hemoglobin at around previous baseline. # Incidental renal stones. CT - No hydronephrosis. Nonobstructive right renal pelvic stones including 13 mm right UPJ calculus. - Recommend follow-up with urology as outpatient if symptomatic. # Diabetes mellitus with a hemoglobin A1c of 6.6. -BUSINESS MANAGEMENT CONSULTANT not on meds. BS are 94 - 128 -Blood sugar adequately controlled at the moment Diet: Snacks/Supplements Adult: Expedite Bottle; With Meals Snacks/Supplements Adult: Ensure Max Protein (bariatric); Between Meals Diet Low Fiber Diet DVT Prophylaxis: Enoxaparin (Lovenox) SQ Cristobal Catheter: PRESENT, indication: Other (Comment) (Neurogenic bladder) Lines: PRESENT Cardiac Monitoring: None Code Status: No CPR- Pre-arrest intubation OK Clinically Significant Risk Factors # Hypoalbuminemia: Lowest albumin = 3.2 g/dL at 05/10/2024 2:44 PM, will monitor as appropriate # DMII: A1C = 6.6 % (Ref range: <5.7 %) within past 6 months # Overweight: Estimated body mass index is 27.56 kg/m?? as calculated from the following: Height as of this encounter: 1.524 m (5'). Weight as of this encounter: 64 kg (141 lb 1.5 oz). # Financial/Environmental Concerns: none Disposition Plan Medically Ready for Discharge: Patient is currently ready for discharge, pending TCU placement for wound cares. TCU recommending we obtain PT and OT for evaluation. CHRIS SON MD Hospitalist Service [facility] Securely message with [facility] (more info) Text page via [employer] Paging/Directory Interval History -Afebrile and hemodynamically stable -RNs note reviewed, no acute issues -She denies any acute complaints. Physical Exam Vital Signs: Temp: 100 ??F (37.8 ??C) Temp src: Oral BP: 131/45 Pulse: 87 Resp: 17 SpO2: 93 % O2 Device: None (Room air) Weight: 141 lbs 1.51 oz General Appearance: Lying in bed, on room air, in no acute distress or discomfort Respiratory: Clear to auscultation bilaterally, does have left lung base crackles. Cardiovascular: Normal S1-S2, normal rate, systolic murmur loudest at left upper sternal border. GI: NABS, colostomy noted, stoma opening pink adequate stool output. Postsurgical scar c/d/i Skin: Noted wound in patient's buttock Other: Moves all extremities spontaneously. Medical Decision Making 45 MINUTES SPENT BY ME on the date of service doing chart review, history, exam, documentation & further activities per the note. Data PAST 24 HR DATA REVIEWED I have personally reviewed the following data over the past 24 hrs: N/A \ N/A / 286 N/A N/A N/A / N/A N/A N/A N/A \ Imaging results reviewed over the past 24 hrs: No results found for this or any previous visit (from the past 24 hour(s)). * Chris Son MD - 05/23/2024 8:50 AM CDT [facility] Medicine Progress Note - Hospitalist Service Date of Admission: 05/10/2024 Assessment & Plan Prerna Major is a 78 year old female with medical history of history of transverse myelitis, paraplegia, neurogenic bladder with chronic indwelling Cristobal catheter, decubitus ulcers with chronic osteomyelitis, RA on chronic prednisone therapy, HUI, HFpEF, atrial fibrillation, hypertension, gastric ulcer presented to the ED with weakness. Workup revealed acute osteomyelitis of the coccyx. Patient underwent diverting colostomy on 05/18/2024 for improved wound hygiene # Sepsis likely from infected decubitus ulcer # Osteomyelitis involving the coccyx # Chronic osteomyelitis involving the right ischium. # Chronic decubitus ulcer. # History of MRSA infection. -Recent admission at [facility] between 03/07-03/14/2024 for septic shock secondary to E. coli UTI with bacteremia, readmitted at [facility] on 03/21/2024 with severe sepsis and another admission at [facility] between 03/24-03/31 2024 -Presented here with abdominal discomfort associated with nausea and fever -CT abdomen and pelvis on 05/10/2024 showed multiple decubitus ulcer, suspicious for acute osteomyelitis involving the coccyx and chronic osteomyelitis involving the right ischium. No drainable fluid collection -General Surgery also followed, they recommended diverting colostomy. No need for debridement. -Infectious disease also followed -Initially on IV meropenem, subsequently transitioned to Augmentin and doxycycline. Completed antibiotic course per ID recommendation on 05/20/2024. - Underwent diverting colostomy on 05/18/2024 - Continue low fiber diet -Pain control as needed, pain team following, patient still having significant pain for dressing changes and she does not think she will have adequate help at home to achieve this -Discontinued IV narcotics. Continue as needed oral Dilaudid -Patient agreed to consider TCU. Discussed with social work and updated -Lovenox for DVT prophylaxis -Wound care following # Urinary tract infection-catheter related. # Neurogenic bladder with chronic indwelling Cristobal catheter -Catheter changed in ED. -UA large leukocyte esterase, 123 WBCs, few bacteria and WBC clumps present. -Urine culture with no growth, however patient already on antibiotics at that time as above. # Anal wall thickening with large rectal fecal burden on imaging # Chronic constipation. -Prior to admission on narcotics, patient reluctant for bowel meds as reports difficulty with woundcare for decubitus ulcer. -CT abdomen and pelvis with no small bowel obstruction. Large rectal fecal burden. Anal wall thickening is likely related to chronic inflammation. -Scheduled bowel meds. As needed bowel meds, suppository ordered. -Minimize narcotic use. -Colorectal surgery following # Physical deconditioning from medical illness, chronic debility. # Transverse myelitis with paraplegia. Lives at home with her daughter, has home care. Reports mostly bedbound, uses motorized wheelchair as needed. Now reporting generalized weakness. -Address medical issues as discussed above. -Fall precautions. -PT, OT evaluation # Chronic pain on narcotics. -Patient has chronic pain issues exacerbated by acute issues as above. -Pain team following -Continue Tylenol, Atarax and gabapentin. -Dilaudid as mentioned above -Please see progress note from pain team from today, i.e. 05/21/2024 # Moderate atherosclerotic disease. # Chronic heart failure with preserved EF [last EF greater than 75% from 01/14/2023] # Atrial fibrillation not on anticoagulation. # Hypertension - BUSINESS MANAGEMENT CONSULTANT Lasix held on admission. Restarted on 05/12/2024 - Continue BUSINESS MANAGEMENT CONSULTANT Toprol, switch to immediate release 25 mg twice daily with hold parameters. - BUSINESS MANAGEMENT CONSULTANT not on aspirin or statin. Defer further cardiac workup to outpatient. # Hypokalemia-resolved -Replace per protocol # Obstructive sleep apnea -Uses BiPAP as outpt. Has chronic CO2 retention. -BiPAP per home settings. # Rheumatoid arthritis -Continue on BUSINESS MANAGEMENT CONSULTANT on prednisone 10 mg daily. # Chronic Anemia likely secondary to chronic disease. -Baseline hemoglobin 9-10 range. -Hemoglobin at around previous baseline. # Incidental renal stones. CT - No hydronephrosis. Nonobstructive right renal pelvic stones including 13 mm right UPJ calculus. Recommend follow-up with urology as outpatient if symptomatic. # Diabetes mellitus with a hemoglobin A1c of 6.6. -BUSINESS MANAGEMENT CONSULTANT not on meds. BS are 94 - 128 -Blood sugar adequately controlled at the moment Diet: Snacks/Supplements Adult: Expedite Bottle; With Meals Snacks/Supplements Adult: Ensure Max Protein (bariatric); Between Meals Diet Low Fiber Diet DVT Prophylaxis: Enoxaparin (Lovenox) SQ Cristobal Catheter: PRESENT, indication: Other (Comment) (Chronic neurogenic bladder) Lines: PRESENT Cardiac Monitoring: None Code Status: No CPR- Pre-arrest intubation OK Clinically Significant Risk Factors # Hypoalbuminemia: Lowest albumin = 3.2 g/dL at 05/10/2024 2:44 PM, will monitor as appropriate # DMII: A1C = 6.6 % (Ref range: <5.7 %) within past 6 months # Overweight: Estimated body mass index is 27.21 kg/m?? as calculated from the following: Height as of this encounter: 1.524 m (5'). Weight as of this encounter: 63.2 kg (139 lb 5.3 oz). # Financial/Environmental Concerns: none Disposition Plan Medically Ready for Discharge: Patient is currently ready for discharge, pending TCU placement. CHRIS SON MD Hospitalist Service [facility] Securely message with [facility] (more info) Text page via [facility] Paging/Directory Interval History -Afebrile and hemodynamically stable -RNs note reviewed, no acute issues -She denies any acute complaints. Physical Exam Vital Signs: Temp: 98.2 ??F (36.8 ??C) Temp src: Oral BP: 137/62 Pulse: 71 Resp: 16 SpO2: 94 % O2 Device: None (Room air) Weight: 139 lbs 5.29 oz General Appearance: Lying in bed, on room air, in no acute distress or discomfort Respiratory: Clear to auscultation bilaterally, does have left lung base crackles. Cardiovascular: Normal S1-S2, normal rate, systolic murmur loudest at left upper sternal border. GI: NABS, colostomy noted, stoma opening pink adequate stool output. Postsurgical scar c/d/i Skin: Noted wound in patient's buttock Other: Moves all extremities spontaneously. Medical Decision Making 45 MINUTES SPENT BY ME on the date of service doing chart review, history, exam, documentation & further activities per the note. Data PAST 24 HR DATA REVIEWED Imaging results reviewed over the past 24 hrs: No results found for this or any previous visit (from the past 24 hour(s)). * Chris Son MD - 05/22/2024 3:53 PM CDT [facility] Medicine Progress Note - Hospitalist Service Date of Admission: 05/10/2024 Assessment & Plan Prerna Major is a 78 year old female with medical history of history of transverse myelitis, paraplegia, neurogenic bladder with chronic indwelling Cristobal catheter, decubitus ulcers with chronic osteomyelitis, RA on chronic prednisone therapy, HUI, HFpEF, atrial fibrillation, hypertension, gastric ulcer presented to the ED with weakness. Workup revealed acute osteomyelitis of the coccyx. Patient underwent diverting colostomy on 05/18/2024 # Sepsis likely from infected decubitus ulcer # Osteomyelitis involving the coccyx # Chronic osteomyelitis involving the right ischium. # Chronic decubitus ulcer. # History of MRSA infection. -Recent admission at [facility] between 03/07-03/14/2024 for septic shock secondary to E. coli UTI with bacteremia, readmitted at [facility] on 03/21/2024 with severe sepsis and another admission at [facility] between 03/24-03/31 2024 -Presented here with abdominal discomfort associated with nausea and fever -CT abdomen and pelvis on 05/10/2024 showed multiple decubitus ulcer, suspicious for acute osteomyelitis involving the coccyx and chronic osteomyelitis involving the right ischium. No drainable fluid collection -General Surgery also followed, they recommended diverting colostomy. No need for debridement. -Infectious disease also followed -Initially on IV meropenem, subsequently transitioned to Augmentin and doxycycline. Completed antibiotic course per ID recommendation on 05/20/2024. - Underwent diverting colostomy on 05/18/2024 - Continue low fiber diet -Pain control as needed, pain team following, patient still having significant pain for dressing changes and she does not think she will have adequate help at home to achieve this -Continue IV narcotics. Try oral Dilaudid to see if adequate pain control can be achieved with this. Pain team assisting with management. -Patient agreed to consider TCU. Discussed with social work and updated -Lovenox for DVT prophylaxis -Wound care following # Urinary tract infection-catheter related. # Neurogenic bladder with chronic indwelling Cristobal catheter -Catheter changed in ED. -UA large leukocyte esterase, 123 WBCs, few bacteria and WBC clumps present. -Urine culture with no growth, however patient already on antibiotics at that time as above. # Anal wall thickening with large rectal fecal burden on imaging # Chronic constipation. -Prior to admission on narcotics, patient reluctant for bowel meds as reports difficulty with woundcare for decubitus ulcer. -CT abdomen and pelvis with no small bowel obstruction. Large rectal fecal burden. Anal wall thickening is likely related to chronic inflammation. -Scheduled bowel meds. As needed bowel meds, suppository ordered. -Minimize narcotic use. -Colorectal surgery following # Physical deconditioning from medical illness, chronic debility. # Transverse myelitis with paraplegia. Lives at home with her daughter, has home care. Reports mostly bedbound, uses motorized wheelchair as needed. Now reporting generalized weakness. -Address medical issues as discussed above. -Fall precautions. -PT, OT evaluation # Chronic pain on narcotics. -Patient has chronic pain issues exacerbated by acute issues as above. -Pain team following -Continue Tylenol, Atarax and gabapentin. -Dilaudid as mentioned above -Please see progress note from pain team from today, i.e. 05/21/2024 Moderate atherosclerotic disease. Chronic heart failure with preserved EF [last EF greater than 75% from 01/14/2023] Atrial fibrillation not on anticoagulation. Hypertension BUSINESS MANAGEMENT CONSULTANT Lasix held on admission. Restarted on 05/12/2024 Continue BUSINESS MANAGEMENT CONSULTANT Toprol, switch to immediate release 25 mg twice daily with hold parameters. -BUSINESS MANAGEMENT CONSULTANT not on aspirin or statin. Defer further cardiac workup to outpatient. Hypokalemia. -Replace per protocol Obstructive sleep apnea -Uses BiPAP as outpt. Has chronic CO2 retention. -BiPAP per home settings. Rheumatoid arthritis -Continue on BUSINESS MANAGEMENT CONSULTANT on prednisone 10 mg daily. Chronic Anemia likely secondary to chronic disease. -Baseline hemoglobin 9-10 range. -Hemoglobin at around previous baseline. Incidental renal stones. CT - No hydronephrosis. Nonobstructive right renal pelvic stones including 13 mm right UPJ calculus. Recommend follow-up with urology as outpatient if symptomatic. Diabetes mellitus with a hemoglobin A1c of 6.6. -BUSINESS MANAGEMENT CONSULTANT not on meds. BS are 94 - 128 -Blood sugar adequately controlled at the moment Diet: Snacks/Supplements Adult: Expedite Bottle; With Meals Snacks/Supplements Adult: Ensure Max Protein (bariatric); Between Meals Diet Low Fiber Diet DVT Prophylaxis: Enoxaparin (Lovenox) SQ Cristobal Catheter: PRESENT, indication: Other (Comment) (Chronic neurogenic bladder) Lines: PRESENT Cardiac Monitoring: None Code Status: No CPR- Pre-arrest intubation OK Clinically Significant Risk Factors # Hypoalbuminemia: Lowest albumin = 3.2 g/dL at 05/10/2024 2:44 PM, will monitor as appropriate # DMII: A1C = 6.6 % (Ref range: <5.7 %) within past 6 months # Overweight: Estimated body mass index is 26.39 kg/m?? as calculated from the following: Height as of this encounter: 1.524 m (5'). Weight as of this encounter: 61.3 kg (135 lb 2.3 oz). # Financial/Environmental Concerns: none Disposition Plan Medically Ready for Discharge: Patient is currently ready for discharge, pending TCU placement. CHRIS SON MD Hospitalist Service [facility] Securely message with [facility] (more info) Text page via [employer] Paging/Directory Interval History -Afebrile and hemodynamically stable -RNs chart reviewed, no acute issues -Patient is still pending discharge to TCU at this time. -Ostomy with adequate stool output. Physical Exam Vital Signs: Temp: 99.2 ??F (37.3 ??C) Temp src: Oral BP: 123/60 Pulse: 73 Resp: 17 SpO2: 95 % O2 Device: None (Room air) Weight: 135 lbs 2.27 oz General Appearance: Lying in bed, on room air, in no acute distress or discomfort Respiratory: Clear to auscultation bilaterally, does have left lung base crackles. Cardiovascular: Normal S1-S2, normal rate. GI: NABS, colostomy noted, stoma opening pink adequate stool output. Postsurgical scar c/d/i Skin: Noted wound in patient's buttock Other: Moves all extremities spontaneously. Medical Decision Making 45 MINUTES SPENT BY ME on the date of service doing chart review, history, exam, documentation & further activities per the note. Data PAST 24 HR DATA REVIEWED Imaging results reviewed over the past 24 hrs: No results found for this or any previous visit (from the past 24 hour(s)). * Johanny Harrison RN - 05/21/2024 2:38 PM CDT Images from the original note were not included. [facility] Nurse Inpatient Assessment Consulted for: Colostomy, buttock wounds Summary: New colostomy 05-18-24 for improved wound hygiene. Stoma viable, output WNL 05/21. Packed 10 sets of pouching supplies for discharge. Answered patient questions to get ready to discharge. 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 Patient History (according to provider note(s): 78 year old female with medical history of history of transverse myelitis, paraplegia, neurogenic bladder with chronic indwelling Cristobal catheter, decubitus ulcers with chronic osteomyelitis, RA on chronic prednisone therapy, HUI, HFpEF, atrial fibrillation, hypertension, gastric ulcer presented tot ED with weakness. Assessment: Areas visualized during today's visit: Focused: and Abdomen Assessment of new end Colostomy: Diagnosis Pertinent to Stoma: constipation and stage 4 pressure injury wounds Surgery Date: 05/18/24 Surgeon: Dr. Peter Alfredo [facility]: [facility] Pouching system in place on assessment today: Alessia two piece Pouch barrier status: intact Pouch last changed/wear time: Reason for pouch change today: pouch not changed today Effectiveness of current pouching/ supply plan: Needs soft convexity at discharge Change made with ostomy management today: No Pouching system placed today: Alessia 2pc 57mm flat with ring and lock n roll pouch remains Supplies:packed for discharge 05/21 Last photo: 05/21 Stoma location: LUQ Stoma size: ~1 3/4 inches, Stoma appearance: viable, healthy, with lumen angled toward 4-5 o'clock and near skin level Mucocutaneous junction: not viewed, pouch intact Peristomal complication(s): not viewed, pouch intact Output: small runny brown Output volume emptied during visit: 0ml Abdominal assessment: Distended Surgical site(s): glued lap sites dry, intact, scattered bruising NG still in place? No Pain: no complaint of pain discussed 05/21 Is patient still on a TIME RECORDER? No Ostomy education assessment: Participant of teaching session today: patient Education completed today: Stoma assessment, When to seek medical attention, Lifestyle adjustments , and Discharge instructions Educational materials/methods: Verbal, Addressed patient/caregiver questions/concerns, and Left packet of information at bedside Education still needed: Pouch change return demonstration and Pouch emptying return demonstration Learning Comprehension: Psychosocial assessment: pt is alert, engaged in education, able to ask questions and observe, patient states I am still not comfortable yet with it being on my body patient declines to participatein pouch emptying 05/21 Patient readiness for education today: attentive Following today's visit: patient is able to demonstrate; 1. How to empty their pouch? Demo provided and Needs additional practice 2. How to change their pouch? Demo provided and Needs additional practice Preparation for discharge completed: Placed prescription recommendations in discharge navigator forMD to sign, Ensured patient has extra supplies for discharge, Discussed how to order supplies afterdischarge , Ordered samples from global logistics manager after gaining consent from patient/caregiver, Discussed how and when to make an outpatient WOC nurse appointment after discharge, Prepared for discharge home with home care, and Discuss signs/symptoms of when to seek medical attention Preparation for discharge still needed: reinforce teaching Pt support system on discharge: niece and daughter WO recommend home care? Yes Buttock assessment copied for continuity 05/21, not assessed this date Wound location: buttock, coccyx right ischial tuberosity and right buttock Coccyx and right buttock Right IT view Last photo: 05/18 Wound due to: Pressure Injury x3 stage 4 per historical charting POA Wound history/plan of care: patient reports she has been wheelchair dependent since she was 6 yearsold, denies desire for colostomy, describes history of using different wound modalities including wound vac and vashe, states decreased desire to use wound vac due to previous cumbersome management, informs staff her daughter helps with her cares, states she uses a hospital bed at home and wheelchair with a cushion which is 2 years old, describes having a poor appetite recently Wound base: granulation tissue and non-granular tissue to visible wound bases Palpation of the wound bed: normal Drainage: moderate to large Description of drainage: serous and serosanguinous Measurements (length x width x depth, in cm): coccyx 3.5cm x 3cm x 3.5cm, right buttock 2.5cm x 4.5cm x 10.5cm, right IT 2.5cm x 2.5cm x 2.5cm , unchanged 05/18 Tunneling: N/A Undermining: N/A Periwound skin: Intact Color: normal and consistent with surrounding tissue Temperature: normal Odor: none resolved 05/18 Pain: moderate, Pain interventions prior to dressing change: 1 hour prior to dressing change provided by primary RN Treatment goal: Heal per patient stated goal STATUS: improving and stable Supplies ordered: discussed with RN Treatment Plan: 05/11/24 1027 sodium hypochlorite (DAKINS half-strength) external solution Start: 05/11/24 1030, Irrigation, 2 TIMES DAILY, Routine Admin Instructions: Use with wound cares BID to buttock wounds x3 for cleansing and application to gauze for wound packing 05/11/24 1027 Skin care precautions Start: 05/11/24 1026, EFFECTIVE NOW, Routine Comments: Pressure Injury Prevention (PIP) Plan: If patient is declining pressure injury prevention interventions: Explore reason why and address patient's concerns, Educate on pressure injury risk and prevention intervention(s), If patient is still declining, document informed refusal , and Ensure Care team is aware ( provider, charge nurse, etc) Mattress: Follow bed algorithm, reassess daily and order specialty mattress, if indicated. HOB: Maintain at or below 30 degrees, unless contraindicated Repositioning in bed: Every 1-2 hours , Left/right positioning; avoid supine, and Raise foot of bedprior to raising head of bed, to reduce patient sliding down (shear) Heels: Keep elevated off mattress and Pillows under calves Protective Dressing: wound care orders for buttock. Mepilex for protection to other areas Positioning Equipment: as needed Fluidized positioner (#[id number] or #[id number]) to help maintain side lying position. Chair positioning: Chair cushion (#[id number]) , Assist patient to reposition hourly, and Do NOT use a donut for sitting (this increases pressure to smaller area and creates a higher potential for injury) If patient has a buttock pressure injury, or high risk for PI use chair cushion or SPS. Moisture Management: Perineal cleansing /protection: Follow Incontinence Protocol, Avoid brief in bed, Clean and dry skin folds with bathing , and Moisturize dry skin Under Devices: Inspect skin under all medical devices during skin inspection , Ensure tubes are stabilized without tension, and Ensure patient is not lying on medical devices or equipment when repositioned Ask provider to discontinue device when no longer needed. Wound care Start: 05/11/24 1800, 2 TIMES DAILY, Routine Comments: Location: buttock x3 (right IT) Care: provided BID and PRN for soiling by primary RN 1. Remove dressings 2. Cleanse and Irrigate the wounds and periwound skin with Dakins solution per MAR BID (sodium hypochlorite DAKINS half-strength external solution), irrigate and flush the wounds with the solution, wet 4x4 gauze and scrub in gentle circles. Then pat dry 3. Apply skin prep (3M no sting skin barrier film or sure prep) to wound edges and periwound skin, let dry 4. Wet some rosy roll gauze or kerlix with Dakins solution, use a cotton tipped applicator to tuckinto wound bases for packing, do NOT over pack - this will cause pain and tissue damage, do pack the moist gauze all the way to the base or deepest part of the wound 5. Secure with 4x4 mepilex, ok to use each up to 5 days or until drainage is saturating the foam touching three corners, ok to lift for routine skin assessments 05/11/24 1026 Nutrition Services Adult IP Consult ONE TIME Complete References: Medical Nutrition Therapy policy and MNT protocol Provider: (Not yet assigned) Question Answer Comment Reason for Consult: RN Consult - specify Reason Reason for Consult: wound healing support needs 05/18/24 0929 Wound care ONE TIME Comments: 05/18/24 Before OR Today 1x: Primary RN to remove dressings, cleanse and irrigate with dakins solution, apply mepilex bandages including mepilex sacral over sacrum before going to surgery (okto follow current plan of care for wound care before and after OR 05/18) Colostomy; LUQ Care EFFECTIVE NOW Comments: LUQ Colostomy pouching plan: Pouching system: ostomy supplies pouches: [place] 70 FECAL ([id number]) ostomy supplies barrier: [place] 70mm SOFT CONVEX ([id number]) Accessories used: [facility] ostomy accessories: 2 Cera Barrier Ring ([id number]) Frequency of pouch changes: PRN leakage and Three times a week WO follow up plan: Daily Friday-Friday (as able) Bedside RN interventions: Change pouch PRN if leaking using the supplies above, Empty pouch when 1/3 to 1/2 full, ensure to clean pouch outlet after emptying to prevent odor, Notify WO for ongoing pouch leakage, and Document stoma appearance and output volume, color, and consistency every shift Question Answer Comment Type of Ostomy Colostomy Location LUQ Pouch Change Frequency PRN Leakage Pouch changed by WOC Pouch emptied by Patient to empty with assist Straight Drainage No Orders: Reviewed RECOMMEND PRIMARY TEAM ORDER: None, at this time Education provided: plan of care, wound progress, and Off-loading pressure Discussed plan of care with: Patient and Nurse WO nurse follow-up plan: weekly for wound follow up assessment, daily follow up for ostomy teaching after surgery Notify WOC if wound(s) deteriorate. Nursing to notify the Provider(s) and re-consult the WO Nurse if new skin concern. DATA: Current support surface: Standard Low air loss (MARSHALL pump, Isolibrium, Pulsate) Containment of urine/stool: Indwelling catheter and Colostomy pouch BMI: Body mass index is 26.48 kg/m??. Active diet order: Orders Placed This Encounter Diet Low Fiber Diet Output: I/O last 3 completed shifts: In: 560 [P.O.:560] Out: 2100 [Urine:1850; Stool:250] Labs: Recent Labs Lab 05/21/24 0705 HGB 9.5* WBC 11.2* Pressure injury risk assessment: Sensory Perception: 2-->very limited Moisture: 4-->rarely moist Activity: 1-->bedfast Mobility: 1-->completely immobile Nutrition: 3-->adequate Friction and Shear: 1-->problem Brandon Score: 12 Johanny FOURNIER 1st choice: Securely message with [facility] ([facility]) (2nd option: [facility] Office , messages checked periodically Mon- Fri 8a-4p) * Elizabeth Hector LSW - 05/21/2024 10:05 AM CDT Images from the original note were not included. Care Management Follow Up Length of Stay (days): 11 Expected Discharge Date: 05/21/2024 Concerns to be Addressed: Patient plan of care discussed at interdisciplinary rounds: Yes Anticipated Discharge Disposition: TCU Home, Home Care Anticipated Discharge Services: Anticipated Discharge DME: Patient/family educated on Medicare website which has current facility and service quality ratings: Education Provided on the Discharge Plan: Patient/Family in Agreement with the Plan: yes Referrals Placed by CM/SW: Internal Clinic Care Coordination, Homecare Private pay costs discussed: Not applicable Additional Information: [facility] was told by provider that patient may need TCU. Patient has [employer], telegraphic typewriter operator met with patient at bedside to discuss choices and options for TCU, provided [employer] list near patients home. Patient reports having bad experiences in previous TCU stays. Patient agreed for telegraphic typewriter operator to send referrals to [facility]. Referrals sent via [facility] Service Provider Request Status Selected Services Address Phone Fax Patient Preferred [facility] ([facility]) Pending - Request Sent N/A [id number] [facility] [phone] -- Current Capacity last updated by Dayanna Burciaga MA on 11/07/2023 2:12 PM IP Team always send full referral in [facility]. Thank you. [employer] [facility] ([facility]) Pending - Request Sent N/A [phone] [facility] [phone]- CHANTE Smiley * Steive Liu MD - 05/21/2024 9:45 AM CDT [facility] Medicine Progress Note - Hospitalist Service Date of Admission: 05/10/2024 2:20 PM Assessment & Plan: Prerna Major is a 78 year old female with medical history of history of transverse myelitis, paraplegia, neurogenic bladder with chronic indwelling Cristobal catheter, decubitus ulcers with chronic osteomyelitis, RA on chronic prednisone therapy, HUI, HFpEF, atrial fibrillation, hypertension, gastric ulcer presented to the ED with weakness. Workup revealed acute osteomyelitis of the coccyx. Patient underwent diverting colostomy on 05/18/2024 Sepsis likely from infected decubitus ulcer Acute osteomyelitis involving the coccyx Chronic osteomyelitis involving the right ischium. Chronic decubitus ulcer. History of MRSA infection. -Recent admission at [facility] between 03/07-03/14/2024 for septic shock secondary to E. coli UTI with bacteremia, readmitted at [facility] on 03/21/2024 with severe sepsis and another admission at [facility] between 03/24-03/31 2024 -Presented here with abdominal discomfort associated with nausea and fever -CT abdomen and pelvis on 05/10/2024 showed multiple decubitus ulcer, suspicious for acute osteomyelitis involving the coccyx and chronic osteomyelitis involving the right ischium. No drainable fluid collection -General Surgery also followed, they recommended diverting colostomy. No need for debridement. -Infectious disease also followed -Initially on IV meropenem, subsequently transitioned to Augmentin and doxycycline. Completed antibiotic course per ID recommendation on 05/20/2024. -Underwent diverting colostomy on 05/18/2024 -Continue low fiber diet -Pain control as needed, pain team following, patient still having significant pain for dressing changes and she does not think she will have adequate help at home to achieve this -Continue IV narcotics. Try oral Dilaudid to see if adequate pain control can be achieved with this. Pain team assisting with management. -Patient reluctantly agreed to consider TCU. Discussed with social work and updated -Lovenox for DVT prophylaxis -Wound care following Urinary tract infection-catheter related. Neurogenic bladder with chronic indwelling Cristobal catheter -Catheter changed in ED. -UA large leukocyte esterase, 123 WBCs, few bacteria and WBC clumps present. -Urine culture with no growth, however patient already on antibiotics at that time as above. Anal wall thickening with large rectal fecal burden on imaging Chronic constipation. -Prior to admission on narcotics, patient reluctant for bowel meds as reports difficulty with woundcare for decubitus ulcer. -CT abdomen and pelvis with no small bowel obstruction. Large rectal fecal burden. Anal wall thickening is likely related to chronic inflammation. -Scheduled bowel meds. As needed bowel meds, suppository ordered. -Minimize narcotic use. -Colorectal surgery following Physical deconditioning from medical illness, chronic debility. Transverse myelitis with paraplegia. Lives at home with her daughter, has home care. Reports mostly bedbound, uses motorized wheelchair as needed. Now reporting generalized weakness. -Address medical issues as discussed above. -Fall precautions. -PT, OT evaluation Chronic pain on narcotics. -Patient has chronic pain issues exacerbated by acute issues as above. -Pain team following -Continue Tylenol, Atarax and gabapentin. -Dilaudid as mentioned above -Please see progress note from pain team from today, i.e. 05/21/2024 Moderate atherosclerotic disease. Chronic heart failure with preserved EF [last EF greater than 75% from 01/14/2023] Atrial fibrillation not on anticoagulation. Hypertension BUSINESS MANAGEMENT CONSULTANT Lasix held on admission. Restarted on 05/12/2024 Continue BUSINESS MANAGEMENT CONSULTANT Toprol, switch to immediate release 25 mg twice daily with hold parameters. -BUSINESS MANAGEMENT CONSULTANT not on aspirin or statin. Defer further cardiac workup to outpatient. Hypokalemia. -Replace per protocol Obstructive sleep apnea -Uses BiPAP as outpt. Has chronic CO2 retention. -BiPAP per home settings. Rheumatoid arthritis -Continue on BUSINESS MANAGEMENT CONSULTANT on prednisone 10 mg daily. Chronic Anemia likely secondary to chronic disease. -Baseline hemoglobin 9-10 range. -Hemoglobin at around previous baseline. Incidental renal stones. CT - No hydronephrosis. Nonobstructive right renal pelvic stones including 13 mm right UPJ calculus. Recommend follow-up with urology as outpatient if symptomatic. Diabetes mellitus with a hemoglobin A1c of 6.6. -BUSINESS MANAGEMENT CONSULTANT not on meds. BS are 94 - 128 -Blood sugar adequately controlled at the moment Diet: Snacks/Supplements Adult: Expedite Bottle; With Meals Snacks/Supplements Adult: Ensure Max Protein (bariatric); Between Meals Diet Low Fiber Diet DVT Prophylaxis: Enoxaparin (Lovenox) SQ Cristobal Catheter: PRESENT, indication: Other (Comment) (chronic) Code Status: No CPR- Pre-arrest intubation OK Disposition Plan Expected Discharge Date: 05/22/2024, 3:00 PM Discharge Comments: Home versus TCU. Entered: Stevie Liu MD 05/21/2024, 9:45 AM Medically Ready for Discharge: Anticipated tomorrow if pain adequately controlled and disposition figured out. Patient initially wanted to go home but now is reluctantly considering TCU given the assistance she is needing. Clinically Significant Risk Factors # Hypoalbuminemia: Lowest albumin = 3.2 g/dL at 05/10/2024 2:44 PM, will monitor as appropriate # DMII: A1C = 6.6 % (Ref range: <5.7 %) within past 6 months # Overweight: Estimated body mass index is 26.48 kg/m?? as calculated from the following: Height as of this encounter: 1.524 m (5'). Weight as of this encounter: 61.5 kg (135 lb 9.3 oz). # Financial/Environmental Concerns: none The patient's care was discussed with the Bedside Nurse and Patient. Medical Decision Making CLEAR ALL SELECTIONS Labs/Imaging Reviewed: See Information above and Data section below Time SPENT BY ME on the date of service doing chart review, history, exam, documentation & further activities per the note: 35 MINUTES Chart documentation was completed, in part, with [employer] voice-recognition software. Even though reviewed, some grammatical, spelling, and word errors may remain. Stevie Liu MD Hospitalist Service [facility] Text Page 7AM-6PM Securely message with the [employer] Console (learn more here) Text page via [employer] Paging/Directory Interval History Patient complains of significant pain especially at the time of dressing change. She is unsure if she can handle current situation at home. Discussed option of potentially going to TCU which she was reluctantly agreeable. No nausea or vomiting. Tolerating diet. Data reviewed today: I reviewed all medications, new labs and imaging results over the last 24 hours. I personally reviewed no images or EKG's today. Physical Exam Vital signs: Temp: 98.2 ??F (36.8 ??C) Temp src: Oral BP: 128/61 Pulse: 71 Resp: 16 SpO2: 96 % O2 Device: None (Room air) Oxygen Delivery: 1 LPM Height: 152.4 cm (5') Weight: 61.5 kg (135 lb 9.3 oz) Estimated body mass index is 26.48 kg/m?? as calculated from the following: Height as of this encounter: 1.524 m (5'). Weight as of this encounter: 61.5 kg (135 lb 9.3 oz). Wt Readings from Last 2 Encounters: 05/21/24 61.5 kg (135 lb 9.3 oz) 03/14/24 65.3 kg (143 lb 15.4 oz) Gen: AAOX3, NAD, comfortable Resp: CTA B/L, normal WOB CVS: RRR, no murmur Abd/GI: Soft, non-tender. BS- normoactive. Colostomy in place Skin: Extensive decubitus ulcer per wound care, exam deferred today MSK: no pedal edema Neuro- CN- intact. Paraplegic Data Recent Labs Lab 05/21/24 0705 05/19/24 2221 05/19/24 0606 05/18/24 1118 05/16/24 0842 WBC 11.2* -- 12.5* -- 15.9* HGB 9.5* -- 9.4* 10.2* 10.2* MCV 89 -- 87 -- 88 PLT 229 -- 250 273 285 NA 143 -- 140 144 142 POTASSIUM 3.4 -- 4.6 4.3 3.7 CHLORIDE 104 -- 101 102 104 CO2 32* -- 31* 32* 31* BUN 31.0* -- 18.7 19.1 27.0* CR 0.44* -- 0.31* 0.31* 0.33* ANIONGAP 7 -- 8 10 7 HOLLY 8.6* -- 8.6* 8.6* 8.9 GLC 96 157* 137* 84 128* No results found for this or any previous visit (from the past 24 hour(s)). Medications Current Facility-Administered Medications Medication Dose Route Frequency Provider Last Rate Last Admin lactated ringers infusion Intravenous Continuous Peter Alfredo MD Stopped at 05/20/24 1551 Current Facility-Administered Medications Medication Dose Route Frequency Provider Last Rate Last Admin acetaminophen (TYLENOL) oral liquid 1,000 mg 1,000 mg Oral Q8H Ambar Joseph MD 975 mg at 05/21/24 0924 amoxicillin-clavulanate (AUGMENTIN) 875-125 MG per tablet 1 tablet 1 tablet Oral Q12H [facility] (06/01) Peter Alfredo MD 1 tablet at 05/21/24 0918 diclofenac (VOLTAREN) 1 % topical gel 4 g 4 g Topical TID AlfredoPeter cesar MD 4 g at 05/21/24 0923 enoxaparin ANTICOAGULANT (LOVENOX) injection 40 mg 40 mg Subcutaneous Q24H AlfredoPeter cesar MD 40 mg at 05/20/24 1448 furosemide (LASIX) tablet 40 mg 40 mg Oral Daily AlfredoPeter cesar MD 40 mg at 05/21/24 0916 gabapentin (NEURONTIN) capsule 400 mg 400 mg Oral TID AlfredoPeter cesar MD 400 mg at 05/21/24 0918 lactobacillus rhamnosus (GG) (CULTURELL) capsule 1 capsule 1 capsule Oral Daily AlfredoPeter cesar MD1 capsule at 05/21/24 0918 Lidocaine (LIDOCARE) 4 % Patch 3 patch 3 patch Transdermal Q24h AlfredoPeter cesar MD 3 patch at 05/21/24 09 methocarbamol (ROBAXIN) tablet 500 mg 500 mg Oral 4x Daily Janak Robledo PA-C 500 mg at 05/21/24 09 metoprolol tartrate (LOPRESSOR) tablet 25 mg 25 mg Oral BID AlfredoPeter cesar MD 25 mg at 05/21/24 0918 multivitamin w/minerals (THERA-VIT-M) tablet 1 tablet 1 tablet Oral Daily AlfredoPeter cesar MD 1 tablet at 05/21/24 09 [Held by provider] naproxen (NAPROSYN) tablet 250 mg 250 mg Oral Daily with breakfast Anna Fajardo MD polyethylene glycol (MIRALAX) Packet 17 g 17 g Oral Daily AlfredoPeter cesar MD 17 g at 05/21/24 09 predniSONE (DELTASONE) tablet 10 mg 10 mg Oral or NG Tube Daily AlfredoPeter cesar MD 10 mg at 05/21/24 09 senna-docusate (SENOKOT-S/PERICOLACE) 8.6-50 MG per tablet 2 tablet 2 tablet Oral or NG Tube BID Peter Alfredo MD 2 tablet at 05/21/24 0918 sodium chloride (PF) 0.9% PF flush 10 mL 10 mL Intracatheter Q8H AlfredoPeter cesar MD 10 mL at 05/21/24 0301 sodium chloride (PF) 0.9% PF flush 3 mL 3 mL Intracatheter Q8H Peter Alfredo MD 3 mL at 245 sodium hypochlorite (DAKINS half-strength) external solution Irrigation BID Peter Alfredo MD Given at 05/21/24 0926 vitamin C (ASCORBIC ACID) tablet 250 mg 250 mg Oral Daily Peter Alfredo MD 250 mg at 05/21/24 0918 zinc sulfate (ZINCATE) capsule 220 mg 220 mg Oral or NG Tube QPM Peter Alfredo MD 220 mg at 05/20/246 * Peter Alfredo MD - 05/21/2024 9:34 AM CDT Images from the original note were not included. COLON & RECTAL SURGERY PROGRESS NOTE May 21, 2024 Post-op Day # 3 SUBJECTIVE: Doing well aside from pain control. Still having severe abdominal pain when moving/turning for wound cares. Robaxin did not help, toradol might have a little bit. Tolerating diet. Stoma functioning. AVSS. Labs stable. OBJECTIVE: Temp: [98.2 ??F (36.8 ??C)-98.8 ??F (37.1 ??C)] 98.2 ??F (36.8 ??C) Pulse: [71-77] 71 Resp: [16-18] 16 BP: (128-156)/(61-70) 128/61 SpO2: [91 %-96 %] 96 % Intake/Output Summary (Last 24 hours) at 05/21/2024 0934 Last data filed at 05/21/2024 0700 Gross per 24 hour Intake 560 ml Output 2525 ml Net -1965 ml GENERAL: Awake, alert, no acute distress HEAD: Normocephalic atraumatic SCLERA: Anicteric EXTREMITIES: Warm and well perfused ABDOMEN: Soft, appropriately tender, non-distended. No guarding, rigidity, or peritoneal signs. Stoma pink with gas and stool in bag. INCISION: C/d/i LABS: Lab Results Component Value Date WBC 11.2 05/21/2024 WBC 14.8 12/13/2013 Lab Results Component Value Date HGB 9.5 05/21/2024 HGB 8.4 12/13/2013 Lab Results Component Value Date HCT 32.8 05/21/2024 HCT 27.5 12/13/2013 Lab Results Component Value Date PLT 229 05/21/2024 PLT 273 12/14/2013 Last Basic Metabolic Panel: Lab Results Component Value Date NA 143 05/21/2024 NA 137 12/14/2013 Lab Results Component Value Date POTASSIUM 3.4 05/21/2024 POTASSIUM 4.2 12/14/2013 Lab Results Component Value Date CHLORIDE 104 05/21/2024 CHLORIDE 96 12/14/2013 Lab Results Component Value Date HOLLY 8.6 05/21/2024 HOLLY 7.4 12/14/2013 Lab Results Component Value Date CO2 32 05/21/2024 CO2 40 12/14/2013 Lab Results Component Value Date BUN 31.0 05/21/2024 BUN 27 12/14/2013 Lab Results Component Value Date CR 0.44 05/21/2024 CR 0.37 12/14/2013 Lab Results Component Value Date GLC 96 05/21/2024 GLC 157 05/19/2024 GLC 95 12/14/2013 ASSESSMENT/PLAN: 78 yo F with complex PMHx and longstanding history of decubitus pressure ulcers with chronic osteomyelitis and constipation. Now POD#3 s/p lap diverting colostomy for improved wound hygiene. - Low fiber diet - PRN pain meds, multimodal pain control. Has not tried ice/heat yet, would try this today. Will reconsult pain mgmt team for additional recommendations. - WOCN for stoma cares/teaching - Lovenox for ppx - Ok to discharge from our standpoint once pain under better control Discussed with Dr. Alfredo. For questions/paging, please contact the CRS office at [phone]. Janak Robledo PA-C Colorectal Physician [facility] [address] [place] [address] T: [phone] F: [phone] CRS Staff Seen and examined Agree with above. Stoma functioning. Wounds look good. Tolerating diet. Will follow peripherally. Please call with questions. I performed a history and physical examination of the patient and discussed their management with the physician coding assistant. I reviewed the physician assistants note and agree with the documented findings and plan of care. Peter Alfredo MD [facility] Colorectal Surgeon [facility] [address], [address] [place] [address] T: [phone] F: [phone] Pager: [phone] [email or web address] * Mateo Henry, MEME - 05/21/2024 5:43 AM CDT Date & Time: 05/20/24, 1143-5168 Surgery/POD#: POD2/3 diverting colostomy Hx: Chronic osteomyelitis, decubitus ulcers, neurogenic bladder w/ chronic cristobal, RA, HUI, HFpEF, Afib, MRSA infection Behavior & Aggression: Green Fall Risk: Yes Orientation: AO4 VS/O2: VSS RA ABNL Labs/Results: See results tab. Pain Management: Tylenol, gabapentin, lidocaine patches, voltaren gel, PRN oxycodone q4. GI/: Chronic cristobal, adequate UOP. Colostomy w/ small green liquid OP. IV/Lines: Midline SL. Skin/Wounds/Incisions: Abd lap sites CDI; buttock wounds x3. L groin abrasion/moisture damage, interdry strips in L and R abd folds. Diet: Tolerating low fiber Activity Level: A2 lift/repo Anticipated DC Date: Pending improvement Significant Information: Pre-medicate with PRN IV dilaudid for dressing changes. * Izzy Marie RN - 05/20/2024 2:47 PM CDT New Colostomy: discharge instructions Surgery date: 05/18/24 Surgeon: Dr. Peter Alfredo Procedure: lap colostomy Related diagnosis: constipation and stage 4 pressure wounds 1. Change appliance 2-3 times a week and as needed for leakage. 2. Empty or change pouch when 1/3 full of stool/gas. 3. Will not harm appliance to get wet during bathing. Can blow dry (on cool setting) cloth tape andbacking after bath or shower. 4. Initially eat 6 small meals/day. No long-term dietary restrictions related to colostomy. 5. Drink plenty of fluids. 6. Always carry an emergency pouch - can prepare it ahead of time (cut out opening and apply ring). 7. If concerned about odor use an odor eliminator (ie. Febreeze) in your bathroom prior to emptying/changing the appliance. 8. No heavy lifting, no sit-ups but walk frequently. 9. OK to take stairs. Supplies: [employer] / [email or web address] New Image 2-pc system (up to 20 pouch changes/month) 1. Barrier: New Image CeraPlus 70mm soft convex cut-to-fit with tape - #50574 (5/box = 2 box/month) 2a. Pouch: 70mm closed pouch, beige, with filter, 'quiet-wear' - #63126 (30/box = 2 box/month) and/or 2b. Pouch: 70mm drainable lock n roll, beige, with filter - #67499 (10/box = 1-2 box/month) 3. Ring: [place] 2 CeraRing (if needed for leakage; as stool thickens you might not need the ring anymore) - #8805 (10/box = 1 box/month) As needed 4. 3M Cavilon no-sting skin barrier (optional if needed) - #3344 (50/box = 1 box as needed) 5. Stoma powder (if needed) - #7906 (1 bottle as needed) 6. Odor eliminator & lubricant (optional) - #66049 (8oz bottle) or #10204 (8ml packets, 50 in abox) (1 as needed) 7. Ostomy belt (optional) - #7299 (large) - (box of 10 = 1 box as needed) Pouching procedure: 1. Cut out opening in barrier following pattern. (approx. 1/8 larger than stoma) 2. Remove plastic backing. 3. Open ring (if using), stretch and apply around the cut opening on sticky side of barrier. Press into place. Note: can 'build up' the ring to fill in any divots in peristomal skin. 4. Fold back edge of paper that covers the tape to create a tab. This assists with paper removal later on. 5. May attach pouch to barrier at this time. Set prepared pouch aside. 6. Remove old pouch from around stoma. Discard. 7. Cleanse around stoma with water only. Dry well. 8. Apply pouch: Ensure skin completely dry. Pull up gently on abdomen to create flat pouching surface, or lie flat if able. Center stoma in barrier opening and press barrier firmly to skin. 9. Pull on tabs to remove paper that covers the tape. Press tape to skin. Ok if there are wrinkles in the tape. 10. Attach pouch to barrier, if have not already done. Ensure pouch is closed. 11. Hold warm hand over stoma/barrier for 2-3 minutes, to help pouch form a good secure hilliard with the skin. Follow-up: (if issues after home care is done) Clinic room is on 1st floor in [facility] - check in at [employer] [facility] in [facility] Office phone # [phone] (Fri - Fri) - call for any questions or concerns * Izzy Marie RN - 05/20/2024 12:07 PM CDT Images from the original note were not included. [facility] Nurse Inpatient Assessment Consulted for: Colostomy, buttock wounds Summary: New colostomy 05-18-24 for improved wound hygiene. Stoma viable, output WNL. Niece present for education and pouch change today 05/20. Pt hoping to discharge home tomorrow 05/21 with home care and family assist. POA wounds to buttock x3 stage 4, noted stable / improving on follow up assessment 05/18, not assessed 05/20. Patient History (according to provider note(s): 78 year old female with medical history of history of transverse myelitis, paraplegia, neurogenic bladder with chronic indwelling Cristobal catheter, decubitus ulcers with chronic osteomyelitis, RA on chronic prednisone therapy, HUI, HFpEF, atrial fibrillation, hypertension, gastric ulcer presented tothe ED with weakness. Assessment: Areas visualized during today's visit: Focused: and Abdomen Assessment of new end Colostomy: Diagnosis Pertinent to Stoma: constipation and stage 4 pressure injury wounds Surgery Date: 05/18/24 Surgeon: Dr. Peter Alfredo [facility]ching system in place on assessment today: [place] one piece and clamp Pouch barrier status: intact Pouch last changed/wear time: 05/18 Reason for pouch change today: ostomy education, routine schedule, and initial post-op assessment Effectiveness of current pouching/ supply plan: Needs soft convexity at discharge Change made with ostomy management today: Yes Pouching system placed today: Alessia 2pc 57mm flat with ring and lock n roll pouch Supplies: discussed with patient and family and nurse Last photo: 05/20 Stoma location: LUQ Stoma size: ~1 3/4 inches, Stoma appearance: viable, healthy, with lumen angled toward 4-5 o'clock and near skin level Mucocutaneous junction: intact Peristomal complication(s): none Output: small runny brown Output volume emptied during visit: 100ml Abdominal assessment: Distended Surgical site(s): glued lap sites dry, intact, scattered bruising NG still in place? No Pain: increased pain to abdomen today 05/20 especially with turning Is patient still on a TIME RECORDER? No Ostomy education assessment: Participant of teaching session today: patient and niece, who also recorded some of [facility] education for pt's daughter Education completed today: Initial fitting, Stoma assessment, Pouching system assessment , Evaluateleakage issue, Refitting of appliance , Adjustment of pouching plan, Pouch change demonstration, Ostomy accessory product use , Introduction to pouches, Peristomal skin care, Pouch emptying demonstration, Intake and output recording, When to seek medical attention, Low fiber diet , Odor/flatus management , Infection prevention/hygiene , Lifestyle adjustments , and Discharge instructions Educational materials/methods: Verbal, Demonstration, Hands on, Addressed patient/caregiver questions/concerns, and Left packet of information at bedside Education still needed: Pouch change return demonstration, Pouch emptying return demonstration, andDischarge instructions Learning Comprehension: Psychosocial assessment: pt is alert, engaged in education, but physically unable to perform cares.Niece present 05/20 and observed pouch change and emptying and asked many questions. She and pt's daughter plan to help with cares at home. Patient readiness for education today: attentive Following today's visit: family member niece is able to demonstrate; 1. How to empty their pouch? Demo provided and Needs additional practice 2. How to change their pouch? Demo provided and Needs additional practice Preparation for discharge completed: Ensured patient has extra supplies for discharge, Discussed how to order supplies after discharge , Ordered samples from global logistics manager after gaining consent from patient/caregiver, Discussed how and when to make an outpatient [facility] nurse appointment after discharge, Prepared for discharge home with home care, and Discuss signs/symptoms of when to seek medical attention Preparation for discharge still needed: review of cares, review of supplies Pt support system on discharge: niece and daughter [facility] recommend home care? Yes Buttock assessment copied for continuity 05/20, not assessed this date Wound location: buttock, coccyx right ischial tuberosity and right buttock Coccyx and right buttock Right IT view Last photo: 05/18 Wound due to: Pressure Injury x3 stage 4 per historical charting POA Wound history/plan of care: patient reports she has been wheelchair dependent since she was 6 yearsold, denies desire for colostomy, describes history of using different wound modalities including wound vac and vashe, states decreased desire to use wound vac due to previous cumbersome management, informs staff her daughter helps with her cares, states she uses a hospital bed at home and wheelchair with a cushion which is 2 years old, describes having a poor appetite recently Wound base: granulation tissue and non-granular tissue to visible wound bases Palpation of the wound bed: normal Drainage: moderate to large Description of drainage: serous and serosanguinous Measurements (length x width x depth, in cm): coccyx 3.5cm x 3cm x 3.5cm, right buttock 2.5cm x 4.5cm x 10.5cm, right IT 2.5cm x 2.5cm x 2.5cm , unchanged 05/18 Tunneling: N/A Undermining: N/A Periwound skin: Intact Color: normal and consistent with surrounding tissue Temperature: normal Odor: none resolved 05/18 Pain: moderate, Pain interventions prior to dressing change: 1 hour prior to dressing change provided by primary RN Treatment goal: Heal per patient stated goal STATUS: improving and stable Supplies ordered: discussed with RN Treatment Plan: 05/11/24 1027 sodium hypochlorite (DAKINS half-strength) external solution Start: 05/11/24 1030, Irrigation, 2 TIMES DAILY, Routine Admin Instructions: Use with wound cares BID to buttock wounds x3 for cleansing and application to gauze for wound packing 05/11/24 1027 Skin care precautions Start: 05/11/24 1026, EFFECTIVE NOW, Routine Comments: Pressure Injury Prevention (PIP) Plan: If patient is declining pressure injury prevention interventions: Explore reason why and address patient's concerns, Educate on pressure injury risk and prevention intervention(s), If patient is still declining, document informed refusal , and Ensure Care team is aware ( provider, charge nurse, etc) Mattress: Follow bed algorithm, reassess daily and order specialty mattress, if indicated. HOB: Maintain at or below 30 degrees, unless contraindicated Repositioning in bed: Every 1-2 hours , Left/right positioning; avoid supine, and Raise foot of bedprior to raising head of bed, to reduce patient sliding down (shear) Heels: Keep elevated off mattress and Pillows under calves Protective Dressing: wound care orders for buttock. Mepilex for protection to other areas Positioning Equipment: as needed Fluidized positioner (#[id number] or #[id number]) to help maintain side lying position. Chair positioning: Chair cushion (#[id number]) , Assist patient to reposition hourly, and Do NOT use a donut for sitting (this increases pressure to smaller area and creates a higher potential for injury) If patient has a buttock pressure injury, or high risk for PI use chair cushion or SPS. Moisture Management: Perineal cleansing /protection: Follow Incontinence Protocol, Avoid brief in bed, Clean and dry skin folds with bathing , and Moisturize dry skin Under Devices: Inspect skin under all medical devices during skin inspection , Ensure tubes are stabilized without tension, and Ensure patient is not lying on medical devices or equipment when repositioned Ask provider to discontinue device when no longer needed. Wound care Start: 05/11/24 1800, 2 TIMES DAILY, Routine Comments: Location: buttock x3 (right IT) Care: provided BID and PRN for soiling by primary RN 1. Remove dressings 2. Cleanse and Irrigate the wounds and periwound skin with Dakins solution per MAR BID (sodium hypochlorite DAKINS half-strength external solution), irrigate and flush the wounds with the solution, wet 4x4 gauze and scrub in gentle circles. Then pat dry 3. Apply skin prep (3M no sting skin barrier film or sure prep) to wound edges and periwound skin, let dry 4. Wet some rosy roll gauze or kerlix with Dakins solution, use a cotton tipped applicator to tuckinto wound bases for packing, do NOT over pack - this will cause pain and tissue damage, do pack the moist gauze all the way to the base or deepest part of the wound 5. Secure with 4x4 mepilex, ok to use each up to 5 days or until drainage is saturating the foam touching three corners, ok to lift for routine skin assessments 05/11/24 1026 Nutrition Services Adult IP Consult ONE TIME Complete References: Medical Nutrition Therapy policy and MNT protocol Provider: (Not yet assigned) Question Answer Comment Reason for Consult: RN Consult - specify Reason Reason for Consult: wound healing support needs 05/18/24 0929 Wound care ONE TIME Comments: 05/18/24 Before OR Today 1x: Primary RN to remove dressings, cleanse and irrigate with dakins solution, apply mepilex bandages including mepilex sacral over sacrum before going to surgery (okto follow current plan of care for wound care before and after OR 05/18) LUQ Colostomy pouching plan: Pouching system: ostomy supplies pouches: Alessia 70 FECAL ([id number]) ostomy supplies barrier: [place] 70mm SOFT CONVEX ([id number]) Accessories used: WOC ostomy accessories: 2 Cera Barrier Ring ([id number]) Frequency of pouch changes: PRN leakage and Three times a week WOC follow up plan: Daily Friday-Friday (as able) Bedside RN interventions: Change pouch PRN if leaking using the supplies above, Empty pouch when 1/3 to 1/2 full, ensure to clean pouch outlet after emptying to prevent odor, Notify WOC for ongoing pouch leakage, and Document stoma appearance and output volume, color, and consistency every shift Orders: Reviewed and Updated RECOMMEND PRIMARY TEAM ORDER: None, at this time Education provided: plan of care, wound progress, and Off-loading pressure Discussed plan of care with: Patient, Family, and Nurse WOC nurse follow-up plan: weekly for wound follow up assessment, daily follow up for ostomy teaching after surgery Notify [facility] if wound(s) deteriorate. Nursing to notify the Provider(s) and re-consult the [facility] Nurse if new skin concern. DATA: Current support surface: Standard Low air loss (MARSHALL pump, Isolibrium, Pulsate) Containment of urine/stool: Incontinence Protocol, Incontinent pad in bed, and Indwelling catheter BMI: Body mass index is 25.96 kg/m??. Active diet order: Orders Placed This Encounter Diet Low Fiber Diet Output: I/O last 3 completed shifts: In: 1565 [P.O.:690; I.V.:875] Out: 1200 [Urine:1000; Stool:200] Labs: Recent Labs Lab 05/19/24 0606 HGB 9.4* WBC 12.5* Pressure injury risk assessment: Sensory Perception: 2-->very limited Moisture: 3-->occasionally moist Activity: 2-->chairfast Mobility: 1-->completely immobile Nutrition: 2-->probably inadequate Friction and Shear: 1-->problem Brandon Score: 11 Izzy Marie RN CWOCN -Securely message with [facility] ([facility] [employer] [facility]) Preferred -[facility] Office (messages checked periodically Mon-Fri 8a-4p) * Stevie Liu MD - 05/20/2024 11:08 AM CDT [facility] Medicine Progress Note - Hospitalist Service Date of Admission: 05/10/2024 2:20 PM Assessment & Plan: Prerna Major is a 78 year old female with medical history of history of transverse myelitis, paraplegia, neurogenic bladder with chronic indwelling Cristobal catheter, decubitus ulcers with chronic osteomyelitis, RA on chronic prednisone therapy, HUI, HFpEF, atrial fibrillation, hypertension, gastric ulcer presented to the ED with weakness. Workup revealed acute osteomyelitis of the coccyx. Patient underwent diverting colostomy on 05/18/2024 Sepsis likely from infected decubitus ulcer Acute osteomyelitis involving the coccyx Chronic osteomyelitis involving the right ischium. Chronic decubitus ulcer. History of MRSA infection. -Recent admission at [facility] between 03/07-03/14/2024 for septic shock secondary to E. coli UTI with bacteremia, readmitted at [facility] on 03/21/2024 with severe sepsis and another admission at [facility] between 03/24-03/31 2024 -Presented here with abdominal discomfort associated with nausea and fever -CT abdomen and pelvis on 05/10/2024 showed multiple decubitus ulcer, suspicious for acute osteomyelitis involving the coccyx and chronic osteomyelitis involving the right ischium. No drainable fluid collection -General Surgery also followed, they recommended diverting colostomy. No need for debridement. -Infectious disease also followed -Initially on IV meropenem, subsequently transitioned to Augmentin and doxycycline until 05/20/2024(today) -Underwent diverting colostomy on 05/18/2024 -Continue low fiber diet -Pain control as needed, Robaxin added -Lovenox for DVT prophylaxis -Wound care following Urinary tract infection-catheter related. Neurogenic bladder with chronic indwelling Cristobal catheter -Catheter changed in ED. -UA large leukocyte esterase, 123 WBCs, few bacteria and WBC clumps present. -Urine culture with no growth, however patient already on antibiotics at that time as above. Anal wall thickening with large rectal fecal burden on imaging Chronic constipation. -Prior to admission on narcotics, patient reluctant for bowel meds as reports difficulty with woundcare for decubitus ulcer. -CT abdomen and pelvis with no small bowel obstruction. Large rectal fecal burden. Anal wall thickening is likely related to chronic inflammation. -Scheduled bowel meds. As needed bowel meds, suppository ordered. -Minimize narcotic use. -Colorectal surgery following Physical deconditioning from medical illness, chronic debility. Transverse myelitis with paraplegia. Lives at home with her daughter, has home care. Reports mostly bedbound, uses motorized wheelchair as needed. Now reporting generalized weakness. -Address medical issues as discussed above. -Fall precautions. -PT, OT evaluation Chronic pain on narcotics. Continue BUSINESS MANAGEMENT CONSULTANT Tylenol. Continue BUSINESS MANAGEMENT CONSULTANT gabapentin. Continue BUSINESS MANAGEMENT CONSULTANT as needed oxycodone, minimize use as able to. -Pain team consulted: Discharge Recommendations Per PAIN Consult gabapentin 400 mg tid Naproxen sodium, acetaminophen as over the counter Oxycodone 10 mg every 4 hrs prn limit 30 mg per day Topicals lidocaine patch and lidocaine uroget gel Moderate atherosclerotic disease. Chronic heart failure with preserved EF [last EF greater than 75% from 01/14/2023] Atrial fibrillation not on anticoagulation. Hypertension BUSINESS MANAGEMENT CONSULTANT Lasix held on admission. Restarted on 05/12/2024 Continue BUSINESS MANAGEMENT CONSULTANT Toprol, switch to immediate release 25 mg twice daily with hold parameters. -BUSINESS MANAGEMENT CONSULTANT not on aspirin or statin. Defer further cardiac workup to outpatient. Hypokalemia. -Replace per protocol Obstructive sleep apnea -Uses BiPAP as outpt. Has chronic CO2 retention. -BiPAP per home settings. Rheumatoid arthritis -Continue on BUSINESS MANAGEMENT CONSULTANT on prednisone 10 mg daily. Chronic Anemia likely secondary to chronic disease. -Baseline hemoglobin 9-10 range. -Hemoglobin at around previous baseline. Incidental renal stones. CT - No hydronephrosis. Nonobstructive right renal pelvic stones including 13 mm right UPJ calculus. Recommend follow-up with urology as outpatient if symptomatic. Diabetes mellitus with a hemoglobin A1c of 6.6. BUSINESS MANAGEMENT CONSULTANT not on meds. BS are 94 - 128 Blood sugar adequately controlled at the moment Diet: Snacks/Supplements Adult: Expedite Bottle; With Meals Snacks/Supplements Adult: Ensure Max Protein (bariatric); Between Meals Diet Low Fiber Diet DVT Prophylaxis: Enoxaparin (Lovenox) SQ Cristobal Catheter: PRESENT, indication: Other (Comment) (chronic) Code Status: No CPR- Pre-arrest intubation OK Disposition Plan Expected Discharge Date: 05/21/2024, 3:00 PM Discharge Comments: Home with home care. Entered: Stevie Liu MD 05/20/2024, 11:08 AM Medically Ready for Discharge: Anticipated tomorrow Clinically Significant Risk Factors # Hypoalbuminemia: Lowest albumin = 3.2 g/dL at 05/10/2024 2:44 PM, will monitor as appropriate # DMII: A1C = 6.6 % (Ref range: <5.7 %) within past 6 months # Overweight: Estimated body mass index is 25.96 kg/m?? as calculated from the following: Height as of this encounter: 1.524 m (5'). Weight as of this encounter: 60.3 kg (132 lb 15 oz). # Financial/Environmental Concerns: none The patient's care was discussed with the Bedside Nurse and Patient. Medical Decision Making CLEAR ALL SELECTIONS Labs/Imaging Reviewed: See Information above and Data section below Time SPENT BY ME on the date of service doing chart review, history, exam, documentation & further activities per the note: 35 MINUTES Chart documentation was completed, in part, with [employer] voice-recognition software. Even though reviewed, some grammatical, spelling, and word errors may remain. Stevie Liu MD Hospitalist Service [facility] Text Page 7AM-6PM Securely message with the [employer] (learn more here) Text page via [employer] Paging/Directory Interval History Endorses slight pain at surgical site otherwise doing well. Tolerating low fiber diet. Afebrile. Data reviewed today: I reviewed all medications, new labs and imaging results over the last 24 hours. I personally reviewed no images or EKG's today. Physical Exam Vital signs: Temp: 99.1 ??F (37.3 ??C) Temp src: Oral BP: 139/71 Pulse: 71 Resp: 18 SpO2: 93 % O2 Device: None (Room air) Oxygen Delivery: 1 LPM Height: 152.4 cm (5') Weight: 60.3 kg (132 lb 15 oz) Estimated body mass index is 25.96 kg/m?? as calculated from the following: Height as of this encounter: 1.524 m (5'). Weight as of this encounter: 60.3 kg (132 lb 15 oz). Wt Readings from Last 2 Encounters: 05/20/24 60.3 kg (132 lb 15 oz) 03/14/24 65.3 kg (143 lb 15.4 oz) Gen: AAOX3, NAD, comfortable Resp: CTA B/L, normal WOB CVS: RRR, no murmur Abd/GI: Soft, non-tender. BS- normoactive. Colostomy in place Skin: Extensive decubitus ulcer per wound care, exam deferred today MSK: no pedal edema Neuro- CN- intact. Paraplegic Data Recent Labs Lab 05/19/24 2221 05/19/24 0606 05/18/24 1118 05/16/24 0842 WBC -- 12.5* -- 15.9* HGB -- 9.4* 10.2* 10.2* MCV -- 87 -- 88 PLT -- 250 273 285 NA -- 140 144 142 POTASSIUM -- 4.6 4.3 3.7 CHLORIDE -- 101 102 104 CO2 -- 31* 32* 31* BUN -- 18.7 19.1 27.0* CR -- 0.31* 0.31* 0.33* ANIONGAP -- 8 10 7 HOLLY -- 8.6* 8.6* 8.9 GLC 157* 137* 84 128* No results found for this or any previous visit (from the past 24 hour(s)). Medications Current Facility-Administered Medications Medication Dose Route Frequency Provider Last Rate Last Admin lactated ringers infusion Intravenous Continuous AlfredoPeter cesar MD 75 mL/hr at 05/20/24 1019 New Bag at 05/20/24 1019 Current Facility-Administered Medications Medication Dose Route Frequency Provider Last Rate Last Admin acetaminophen (TYLENOL) oral liquid 1,000 mg 1,000 mg Oral Q8H Ambar Joseph MD 975 mg at 05/20/24 1037 amoxicillin-clavulanate (AUGMENTIN) 875-125 MG per tablet 1 tablet 1 tablet Oral Q12H [facility] (06/01) Peter Alfredo MD 1 tablet at 05/20/24 0830 diclofenac (VOLTAREN) 1 % topical gel 4 g 4 g Topical TID Peter Alfredo MD 4 g at 05/20/24 0851 enoxaparin ANTICOAGULANT (LOVENOX) injection 40 mg 40 mg Subcutaneous Q24H AlfredoPeter cesar MD 40 mg at 05/19/24 1335 furosemide (LASIX) tablet 40 mg 40 mg Oral Daily AlfredoPeter cesar MD 40 mg at 05/20/24 0831 gabapentin (NEURONTIN) capsule 400 mg 400 mg Oral TID AlfredoPeter cesar MD 400 mg at 05/20/24 0831 lactobacillus rhamnosus (GG) (CULTURELL) capsule 1 capsule 1 capsule Oral Daily AlfredoPeter cesar MD1 capsule at 05/20/24 0831 Lidocaine (LIDOCARE) 4 % Patch 3 patch 3 patch Transdermal Q24h Alfredo, Peter C, MD 3 patch at 05/19/24 1454 methocarbamol (ROBAXIN) tablet 500 mg 500 mg Oral 4x Daily Janak Robledo PA-C 500 mg at 05/20/24 1037 metoprolol tartrate (LOPRESSOR) tablet 25 mg 25 mg Oral BID Peter Alfredo MD 25 mg at 05/20/24 0830 multivitamin w/minerals (THERA-VIT-M) tablet 1 tablet 1 tablet Oral Daily Peter Alfredo MD 1 tablet at 05/20/24 0851 [Held by provider] naproxen (NAPROSYN) tablet 250 mg 250 mg Oral Daily with breakfast Anna Fajardo MD polyethylene glycol (MIRALAX) Packet 17 g 17 g Oral Daily AlfredoPeter cesar MD 17 g at 05/20/24 0851 predniSONE (DELTASONE) tablet 10 mg 10 mg Oral or NG Tube Daily Peter Alfredo MD 10 mg at 05/20/24 0830 senna-docusate (SENOKOT-S/PERICOLACE) 8.6-50 MG per tablet 2 tablet 2 tablet Oral or NG Tube BID Peter Alfredo MD 2 tablet at 05/20/24 0830 sodium chloride (PF) 0.9% PF flush 10 mL 10 mL Intracatheter Q8H Peter Alfredo MD sodium chloride (PF) 0.9% PF flush 3 mL 3 mL Intracatheter Q8H Peter Alfredo MD 3 mL at 126 sodium hypochlorite (DAKINS half-strength) external solution Irrigation BID Peter Alfredo MD Given at 05/20/24 0155 vitamin C (ASCORBIC ACID) tablet 250 mg 250 mg Oral Daily Peter Alfredo MD 250 mg at 05/20/24 0831 zinc sulfate (ZINCATE) capsule 220 mg 220 mg Oral or NG Tube QPM Peter Alfredo MD 220 mg at 05/19/24 2303 * Jamila Bowser RN - 05/20/2024 10:47 AM CDT Care Management Follow Up Length of Stay (days): 10 Expected Discharge Date: 05/21/2024 Concerns to be Addressed: Patient plan of care discussed at interdisciplinary rounds: Yes Anticipated Discharge Disposition: Home, Home Care Anticipated Discharge Services: Anticipated Discharge DME: Patient/family educated on Medicare website which has current facility and service quality ratings: Education Provided on the Discharge Plan: Patient/Family in Agreement with the Plan: yes Referrals Placed by CM/SW: Internal Clinic Care Coordination, Homecare Private pay costs discussed: Not applicable Additional Information: Bedside nurse reports anticipated discharge is tomorrow. Called [facility] ([phone]) to update on anticipated discharge tomorrow; they acknowledged and appreciate update on final plan tomorrow with discharge orders to be faxed to them.Can leave a voice mail message as checked frequently. Jamila Bowser, RN Inpatient Float Documentation Clerk [facility] * Janak Robledo PA-C - 05/20/2024 9:17 AM CDT Images from the original note were not included. COLON & RECTAL SURGERY PROGRESS NOTE May 20, 2024 Post-op Day # 2 SUBJECTIVE: Doing well. Pain somewhat controlled. Tolerating LFD no n/v, appetite is good. Startingto have colostomy output. AVSS. OBJECTIVE: Temp: [97.8 ??F (36.6 ??C)-99.1 ??F (37.3 ??C)] 99.1 ??F (37.3 ??C) Pulse: [71-80] 71 Resp: [16-18] 18 BP: (106-139)/(51-71) 139/71 SpO2: [93 %] 93 % Intake/Output Summary (Last 24 hours) at 05/20/2024 0917 Last data filed at 05/20/2024 0600 Gross per 24 hour Intake 1565 ml Output 1200 ml Net 365 ml GENERAL: Awake, alert, no acute distress HEAD: Normocephalic atraumatic SCLERA: Anicteric EXTREMITIES: Warm and well perfused ABDOMEN: Soft, appropriately tender, non-distended. No guarding, rigidity, or peritoneal signs. Stoma pink with gas and soft stool in bag INCISION: C/d/i LABS: Lab Results Component Value Date WBC 12.5 05/19/2024 WBC 14.8 12/13/2013 Lab Results Component Value Date HGB 9.4 05/19/2024 HGB 8.4 12/13/2013 Lab Results Component Value Date HCT 31.3 05/19/2024 HCT 27.5 12/13/2013 Lab Results Component Value Date PLT 250 05/19/2024 PLT 273 12/14/2013 Last Basic Metabolic Panel: Lab Results Component Value Date NA 140 05/19/2024 NA 137 12/14/2013 Lab Results Component Value Date POTASSIUM 4.6 05/19/2024 POTASSIUM 4.2 12/14/2013 Lab Results Component Value Date CHLORIDE 101 05/19/2024 CHLORIDE 96 12/14/2013 Lab Results Component Value Date HOLLY 8.6 05/19/2024 HOLLY 7.4 12/14/2013 Lab Results Component Value Date CO2 31 05/19/2024 CO2 40 12/14/2013 Lab Results Component Value Date BUN 18.7 05/19/2024 BUN 27 12/14/2013 Lab Results Component Value Date CR 0.31 05/19/2024 CR 0.37 12/14/2013 Lab Results Component Value Date GLC 157 05/19/2024 GLC 95 12/14/2013 ASSESSMENT/PLAN: 78 yo F with complex PMHx and longstanding history of decubitus pressure ulcers with chronic osteomyelitis and constipation. Now POD#2 s/p lap diverting colostomy for improved wound hygiene. - Low fiber diet - PRN pain meds. Added scheduled robaxin. - WOCN for stoma cares/teaching - Lovenox for ppx Will discuss with Dr. Alfredo. For questions/paging, please contact the CRS office at [phone]. Janak Robledo PA-C Colorectal Physician [facility] [address] [place] [address] T: [phone] F: [phone] * Mateo Henry RN - 05/20/2024 6:26 AM CDT Date & Time: 05/19/24, Surgery/POD#: POD1/2 diverting colostomy Hx: Chronic osteomyelitis, decubitus ulcers, neurogenic bladder w/ chronic cristobal, RA, HUI, HFpEF, Afib, MRSA infection Behavior & Aggression: [place] Risk: Yes Orientation: AO4 VS/O2: VSS RA. BP 130/62, P 80, T 99 ABNL Labs/Results: Hgb 9.4, WBC 12.5, see results tab. Pain Management: Tylenol, gabapentin, lidocaine patches, voltaren gel, PRN oxycodone GI/: Chronic cristobal, adequate UOP. Colostomy w/ small liquid OP, bag leaked and changed x1. IV/Lines: Midline infusing LR @ 75mL/hr Skin/Wounds/Incisions: Abd lap sites CDI; buttock wounds x3, packing and dressings changed PPOC. Blanchable redness in abdominal folds. Diet: Tolerating low fiber Activity Level: A2 lift/repo Anticipated DC Date: Pending improvement Significant Information: Voltaren gel to shoulders. Pre-medicate with PRN oxycodone for dressing changes. * Johanny Harrison RN - 05/19/2024 1:58 PM CDT Images from the original note were not included. [facility] WO Nurse Inpatient Assessment Consulted for: 05/16 Ostomy Evaluate for colostomy, likely dividied loop 05/12 Ostomy Loop colostomy Request from daughter for you to call her regarding potential ostomy. She has questions about management and difficulty 05/10 Wound acute on chronic osteomyelitis Summary: patient with new ostomy 05/18, initial woc visit 05/19. patient also with POA wounds to buttock x3 stage 4, noted stable / improving on follow up assessment 05/18, not assessed 05/19. Patient History (according to provider note(s): 78 year old female with medical history of history of transverse myelitis, paraplegia, neurogenic bladder with chronic indwelling Cristobal catheter, decubitus ulcers with chronic osteomyelitis, RA on chronic prednisone therapy, HUI, HFpEF, atrial fibrillation, hypertension, gastric ulcer presented tot ED with weakness. Assessment: Areas visualized during today's visit: Focused: and Abdomen Assessment of new end Colostomy: Diagnosis Pertinent to Stoma: constipation and stage 4 pressure injury wounds Surgery Date: 05/18 Surgeon:[facility]: Zaynab Pouching system in place on assessment today: [place] one piece and clamp Pouch barrier status: intact Pouch last changed/wear time: applied in OR Reason for pouch change today: pouch not changed today Effectiveness of current pouching/ supply plan: Waiting for peristomal edema to decrease Change made with ostomy management today: No Pouching system placed today: Alessia remains Supplies: discussed with patient Last photo: 05/19 Stoma location: LUQ Stoma size: ~1 1/2 inches, Stoma appearance: viable, healthy, and normal-appearing Mucocutaneous junction: not visualized (barrier in place) Peristomal complication(s): not visualized (barrier in place) Output: gas Output volume emptied during visit: 0ml Abdominal assessment: Distended Surgical site(s): dressing dry and intact NG still in place? No Pain: denies Is patient still on a TIME RECORDER? No Ostomy education assessment: Participant of teaching session today: patient Education completed today: Stoma assessment, Intake and output recording, Low fiber diet , Odor/flatus management , Lifestyle adjustments , and Discharge instructions showed how to let gas out but not pouch emptying fully 05/19 Educational materials/methods: Verbal, Demonstration, Hands on, Addressed patient/caregiver questions/concerns, and Left packet of information at bedside Education still needed: Pouch change demonstration, Pouch change return demonstration, Ostomy accessory product use , Introduction to pouches, Peristomal skin care, Pouch emptying demonstration, Pouch emptying return demonstration, Intake and output recording, Fluid and electrolyte balance , Importance of hydration, When to seek medical attention, Low fiber diet , Odor/flatus management , Infection prevention/hygiene , and Hernia prevention Learning Comprehension: Psychosocial assessment: alert, able to verbalize questions Patient readiness for education today: attentive Following today's visit: patient is able to demonstrate; 1. How to empty their pouch? Yes, Demo provided , and Needs additional practice showed how to emptygas 2. How to change their pouch? No 3. How to read and record intake and output correctly? No Preparation for discharge completed: Discussed how to order supplies after discharge , Ordered samples from global logistics manager after gaining consent from patient/caregiver, and Prepared for discharge home with home care Preparation for discharge still needed: Placed prescription recommendations in discharge navigator for MD to sign, Ensured patient has extra supplies for discharge, Discussed how and when to make an outpatient [facility] nurse appointment after discharge, Prepared for discharge home with home care, and Discuss signs/symptoms of when to seek medical attention Pt support system on discharge: niece [facility] recommend home care? Yes Buttock assessment copied for continuity 05/19 Wound location: buttock, coccyx right ischial tuberosity and right buttock Coccyx and right buttock Right IT view Last photo: 05/18 Wound due to: Pressure Injury x3 stage 4 per historical charting POA Wound history/plan of care: patient reports she has been wheelchair dependent since she was 6 yearsold, denies desire for colostomy, describes history of using different wound modalities including wound vac and vashe, states decreased desire to use wound vac due to previous cumbersome management, informs staff her daughter helps with her cares, states she uses a hospital bed at home and wheelchair with a cushion which is 2 years old, describes having a poor appetite recently Wound base: granulation tissue and non-granular tissue to visible wound bases Palpation of the wound bed: normal Drainage: moderate to large Description of drainage: serous and serosanguinous Measurements (length x width x depth, in cm): coccyx 3.5cm x 3cm x 3.5cm, right buttock 2.5cm x 4.5cm x 10.5cm, right IT 2.5cm x 2.5cm x 2.5cm , unchanged 05/18 Tunneling: N/A Undermining: N/A Periwound skin: Intact Color: normal and consistent with surrounding tissue Temperature: normal Odor: none resolved 05/18 Pain: moderate, Pain interventions prior to dressing change: 1 hour prior to dressing change provided by primary RN Treatment goal: Heal per patient stated goal STATUS: improving and stable Supplies ordered: discussed with RN Treatment Plan: 05/11/24 1027 sodium hypochlorite (DAKINS half-strength) external solution Start: 05/11/24 1030, Irrigation, 2 TIMES DAILY, Routine Admin Instructions: Use with wound cares BID to buttock wounds x3 for cleansing and application to gauze for wound packing 05/11/24 1027 Skin care precautions Start: 05/11/24 1026, EFFECTIVE NOW, Routine Comments: Pressure Injury Prevention (PIP) Plan: If patient is declining pressure injury prevention interventions: Explore reason why and address patient's concerns, Educate on pressure injury risk and prevention intervention(s), If patient is still declining, document informed refusal , and Ensure Care team is aware ( provider, charge nurse, etc) Mattress: Follow bed algorithm, reassess daily and order specialty mattress, if indicated. HOB: Maintain at or below 30 degrees, unless contraindicated Repositioning in bed: Every 1-2 hours , Left/right positioning; avoid supine, and Raise foot of bedprior to raising head of bed, to reduce patient sliding down (shear) Heels: Keep elevated off mattress and Pillows under calves Protective Dressing: wound care orders for buttock. Mepilex for protection to other areas Positioning Equipment: as needed Fluidized positioner (#[id number] or #[id number]) to help maintain side lying position. Chair positioning: Chair cushion (#[id number]) , Assist patient to reposition hourly, and Do NOT use a donut for sitting (this increases pressure to smaller area and creates a higher potential for injury) If patient has a buttock pressure injury, or high risk for PI use chair cushion or SPS. Moisture Management: Perineal cleansing /protection: Follow Incontinence Protocol, Avoid brief in bed, Clean and dry skin folds with bathing , and Moisturize dry skin Under Devices: Inspect skin under all medical devices during skin inspection , Ensure tubes are stabilized without tension, and Ensure patient is not lying on medical devices or equipment when repositioned Ask provider to discontinue device when no longer needed. Wound care Start: 05/11/24 1800, 2 TIMES DAILY, Routine Comments: Location: buttock x3 (right IT) Care: provided BID and PRN for soiling by primary RN 1. Remove dressings 2. Cleanse and Irrigate the wounds and periwound skin with Dakins solution per MAR BID (sodium hypochlorite DAKINS half-strength external solution), irrigate and flush the wounds with the solution, wet 4x4 gauze and scrub in gentle circles. Then pat dry 3. Apply skin prep (3M no sting skin barrier film or sure prep) to wound edges and periwound skin, let dry 4. Wet some rosy roll gauze or kerlix with Dakins solution, use a cotton tipped applicator to tuckinto wound bases for packing, do NOT over pack - this will cause pain and tissue damage, do pack the moist gauze all the way to the base or deepest part of the wound 5. Secure with 4x4 mepilex, ok to use each up to 5 days or until drainage is saturating the foam touching three corners, ok to lift for routine skin assessments 05/11/24 1026 Nutrition Services Adult IP Consult ONE TIME Complete References: Medical Nutrition Therapy policy and MNT protocol Provider: (Not yet assigned) Question Answer Comment Reason for Consult: RN Consult - specify Reason Reason for Consult: wound healing support needs 05/18/24 0929 Wound care ONE TIME Comments: 05/18/24 Before OR Today 1x: Primary RN to remove dressings, cleanse and irrigate with dakins solution, apply mepilex bandages including mepilex sacral over sacrum before going to surgery (okto follow current plan of care for wound care before and after OR 05/18) Colostomy; LUQ Care EFFECTIVE NOW Comments: First pouch change with WOC 05/20 in late morning/ afternoon with patient and family. ~ Encourage patient participation with ostomy care, ~ Empty pouch when 1/3 to 1/2 full, ~ Notify WO for ongoing ostomy pouch leakage, ~ Document stoma output volume, color, consistency EVERY shift ~ Supplies used ~ Pouch: [place] 70 FECAL ([id number]) ~ Flange/Barrier/Wafer: Alessia 70mm FLAT ([id number]) ~ Accessories: 2 Adapt Barrier Ring ([id number]) Question Answer Comment Type of Ostomy Colostomy Location LUQ Pouch Change Frequency PRN Leakage Pouch changed by WOC Pouch emptied by Patient to empty with assist Straight Drainage No Orders: Reviewed and Updated RECOMMEND PRIMARY TEAM ORDER: None, at this time Education provided: plan of care, wound progress, and Off-loading pressure Discussed plan of care with: Patient and Nurse 05/19 WO nurse follow-up plan: weekly for wound follow up assessment, daily follow up for ostomy teaching after surgery Notify WOC if wound(s) deteriorate. Nursing to notify the Provider(s) and re-consult the WOC Nurse if new skin concern. DATA: Current support surface: Standard Low air loss (MARSHALL pump, Isolibrium, Pulsate) Containment of urine/stool: Incontinence Protocol, Incontinent pad in bed, and Indwelling catheter BMI: Body mass index is 25.83 kg/m??. Active diet order: Orders Placed This Encounter Diet Low Fiber Diet Output: I/O last 3 completed shifts: In: 1105 [P.O.:120; I.V.:735] Out: 1790 [Urine:1780; Blood:10] Labs: Recent Labs Lab 05/19/24 0606 HGB 9.4* WBC 12.5* Pressure injury risk assessment: Sensory Perception: 2-->very limited Moisture: 3-->occasionally moist Activity: 2-->chairfast Mobility: 2-->very limited Nutrition: 2-->probably inadequate Friction and Shear: 1-->problem Brandon Score: 12 Johanny JUSTICEOCTaj 1st choice: Securely message with [facility] ([employer]) (2nd option: [facility] Office , messages checked periodically Mon- Fri 8a-4p) * Norman Liu RD - 05/19/2024 10:39 AM CDT CLINICAL NUTRITION SERVICES - REASSESSMENT NOTE Recommendations Ordered by Registered Dietitian (RD): Encouraged po intake, emphasizing the importance of protein for wound healing Updated supplement order in [facility], per pt preference. Provided a low fiber foods list handout Continue low fiber diet Malnutrition: (05/11) Patient does not meet two of the above criteria necessary for diagnosing malnutrition EVALUATION OF PROGRESS TOWARD GOALS Diet: Low fiber Lunch: Expedite (wound healing supplement) 10 am: Ensure MAX (30 gm pro supplement) Intake/Tolerance: Prerna endorsed the good intakes when she's not NPO. She tried to always finish the Ensure Max but is somewhat fatigued of them as she's only been getting the maltese vanilla flavor and would like to rotate the chocolate flavor as well. She had no questions about her low fiber diet while at [facility] but was interested in receiving more low fiber info for when she discharges - Flowsheets show a fair appetite and 1-3 intakes/day of 75-100%. ASSESSED NUTRITION NEEDS: Dosing Weight 59.6 kg (admit 05/10) Estimated Energy Needs: 0806-5016 kcals (25-30 Kcal/Kg) Justification: maintenance, wound healing Estimated Protein Needs: 78-89 grams protein (1.3-1.5 g pro/Kg) Justification: wound healing NEW FINDINGS: Skin: 05/19 WOCN, Wound location: buttock, coccyx right ischial tuberosity and right buttock, Wound due to:Pressure Injury x3 stage 4 per historical charting POA, STATUS: improving and stable. Meds: Lasix, Culturell, prednisone, multivitamin w/minerals, 250 mg Vit C, 220 mg zinc sulfate, LR @ 75 ml/hr Labs: Phos 4.8 (H), BG 137, Previous Goals: Pt to consume 75% meals and 100% wound healing supplements Evaluation: progressing Previous Nutrition Diagnosis: Increased nutrient needs (protein) related to higher demand for healing as evidenced by pt with noted stage 4 wounds Evaluation: No change CURRENT NUTRITION DIAGNOSIS Increased nutrient needs (protein) related to higher demand for healing as evidenced by pt with noted stage 4 wounds INTERVENTIONS Recommendations / Nutrition Prescription Encouraged po intake, emphasizing the importance of protein for wound healing Updated supplement order in [facility], per pt preference. Provided a low fiber foods list handout Continue low fiber diet Implementation Medical food supplement therapy General/Healthful diet Goals Pt to consume 75% meals and 100% wound healing supplements MONITORING AND EVALUATION: Progress towards goals will be monitored and evaluated per protocol and Practice Guideline Norman Liu RD, LD * Stevie Liu MD - 05/19/2024 10:01 AM CDT [facility] Medicine Progress Note - Hospitalist Service Date of Admission: 05/10/2024 2:20 PM Assessment & Plan: Prerna Major is a 78 year old female with medical history of history of transverse myelitis, paraplegia, neurogenic bladder with chronic indwelling Cristobal catheter, decubitus ulcers with chronic osteomyelitis, RA on chronic prednisone therapy, HUI, HFpEF, atrial fibrillation, hypertension, gastric ulcer presented to the ED with weakness. Workup revealed acute osteomyelitis of the coccyx. Patient underwent diverting colostomy on 05/18/2024 Sepsis likely from infected decubitus ulcer Acute osteomyelitis involving the coccyx Chronic osteomyelitis involving the right ischium. Chronic decubitus ulcer. History of MRSA infection. -Recent admission at [facility] between 03/07-03/14/2024 for septic shock secondary to E. coli UTI with bacteremia, readmitted at [facility] on 03/21/2024 with severe sepsis and another admission at [facility] between 03/24-03/31 2024 -Presented here with abdominal discomfort associated with nausea and fever -CT abdomen and pelvis on 05/10/2024 showed multiple decubitus ulcer, suspicious for acute osteomyelitis involving the coccyx and chronic osteomyelitis involving the right ischium. No drainable fluid collection -General Surgery also followed, they recommended diverting colostomy. No need for debridement. -Infectious disease also followed -Initially on IV meropenem, subsequently transitioned to Augmentin and doxycycline until 05/20/2024 -Underwent diverting colostomy on 05/18/2024 -Started on low fiber diet -Pain control as needed -Lovenox for DVT prophylaxis -Wound care following Urinary tract infection-catheter related. Neurogenic bladder with chronic indwelling Cristobal catheter -Catheter changed in ED. -UA large leukocyte esterase, 123 WBCs, few bacteria and WBC clumps present. -Urine culture with no growth, however patient already on antibiotics at that time. Anal wall thickening with large rectal fecal burden on imaging Chronic constipation. -Prior to admission on narcotics, patient reluctant for bowel meds as reports difficulty with woundcare for decubitus ulcer. -CT abdomen and pelvis with no small bowel obstruction. Large rectal fecal burden. Anal wall thickening is likely related to chronic inflammation. -Scheduled bowel meds. As needed bowel meds, suppository ordered. -Minimize narcotic use. -Colorectal surgery following Physical deconditioning from medical illness, chronic debility. Transverse myelitis with paraplegia. Lives at home with her daughter, has home care. Reports mostly bedbound, uses motorized wheelchair as needed. Now reporting generalized weakness. -Address medical issues as discussed above. -Fall precautions. -PT, OT evaluation Chronic pain on narcotics. Continue BUSINESS MANAGEMENT CONSULTANT Tylenol. Continue BUSINESS MANAGEMENT CONSULTANT gabapentin. Continue BUSINESS MANAGEMENT CONSULTANT as needed oxycodone, minimize use as able to. -Pain team consulted: Discharge Recommendations Per PAIN Consult gabapentin 400 mg tid Naproxen sodium, acetaminophen as over the counter Oxycodone 10 mg every 4 hrs prn limit 30 mg per day Topicals lidocaine patch and lidocaine uroget gel Moderate atherosclerotic disease. Chronic heart failure with preserved EF [last EF greater than 75% from 01/14/2023] Atrial fibrillation not on anticoagulation. Hypertension BUSINESS MANAGEMENT CONSULTANT Lasix held on admission. Restarted on 05/12/2024 Continue BUSINESS MANAGEMENT CONSULTANT Toprol, switch to immediate release 25 mg twice daily with hold parameters. -BUSINESS MANAGEMENT CONSULTANT not on aspirin or statin. Defer further cardiac workup to outpatient. Hypokalemia. -Replace per protocol Obstructive sleep apnea -Uses BiPAP as outpt. Has chronic CO2 retention. -BiPAP per home settings. Rheumatoid arthritis -Continue on BUSINESS MANAGEMENT CONSULTANT on prednisone 10 mg daily. Chronic Anemia likely secondary to chronic disease. -Baseline hemoglobin 9-10 range. -Hemoglobin at around previous baseline. Incidental renal stones. CT - No hydronephrosis. Nonobstructive right renal pelvic stones including 13 mm right UPJ calculus. Recommend follow-up with urology as outpatient if symptomatic. Diabetes mellitus with a hemoglobin A1c of 6.6. BUSINESS MANAGEMENT CONSULTANT not on meds. BS are 94 - 128 Blood sugar adequately controlled at the moment Diet: Snacks/Supplements Adult: Expedite Bottle; With Meals Snacks/Supplements Adult: Ensure Max Protein (bariatric); Between Meals Diet Low Fiber Diet DVT Prophylaxis: Enoxaparin (Lovenox) SQ Cristobal Catheter: PRESENT, indication: Other (Comment) (chronic) Code Status: No CPR- Pre-arrest intubation OK Disposition Plan Expected Discharge Date: 05/21/2024, 3:00 PM Discharge Comments: Pending ROBF. Probable d/c with family and HC eventually Entered: Stevie Liu MD 05/19/2024, 10:01 AM Medically Ready for Discharge: Anticipated in 2-4 Days Clinically Significant Risk Factors # Hypoalbuminemia: Lowest albumin = 3.2 g/dL at 05/10/2024 2:44 PM, will monitor as appropriate # DMII: A1C = 6.6 % (Ref range: <5.7 %) within past 6 months # Overweight: Estimated body mass index is 25.83 kg/m?? as calculated from the following: Height as of this encounter: 1.524 m (5'). Weight as of this encounter: 60 kg (132 lb 4.4 oz). # Financial/Environmental Concerns: none The patient's care was discussed with the Bedside Nurse and Patient. Medical Decision Making CLEAR ALL SELECTIONS Labs/Imaging Reviewed: See Information above and Data section below Time SPENT BY ME on the date of service doing chart review, history, exam, documentation & further activities per the note: 35 MINUTES Chart documentation was completed, in part, with [employer] voice-recognition software. Even though reviewed, some grammatical, spelling, and word errors may remain. Stevie Liu MD Hospitalist Service [facility] Text Page 7AM-6PM Securely message with the [employer] Console (learn more here) Text page via [employer] Paging/Directory Interval History Patient underwent diverting colostomy yesterday. Pain is reasonably well- controlled. Has been started on low fiber diet. Denies nausea or vomiting. Afebrile. Data reviewed today: I reviewed all medications, new labs and imaging results over the last 24 hours. I personally reviewed no images or EKG's today. Physical Exam Vital signs: Temp: 99.2 ??F (37.3 ??C) Temp src: Oral BP: 138/63 Pulse: 77 Resp: 16 SpO2: 96 % O2 Device: None (Room air) Oxygen Delivery: 1 LPM Height: 152.4 cm (5') Weight: 60 kg (132 lb 4.4 oz) Estimated body mass index is 25.83 kg/m?? as calculated from the following: Height as of this encounter: 1.524 m (5'). Weight as of this encounter: 60 kg (132 lb 4.4 oz). Wt Readings from Last 2 Encounters: 05/19/24 60 kg (132 lb 4.4 oz) 03/14/24 65.3 kg (143 lb 15.4 oz) Gen: AAOX3, NAD, comfortable HEENTno pallor Resp: CTA B/L, normal WOB CVS: RRR, no murmur Abd/GI: Soft, non-tender. BS- normoactive. Colostomy in place Skin: Extensive decubitus ulcer per wound care, exam deferred today MSK: no pedal edema Neuro- CN- intact. Paraplegic Data Recent Labs Lab 05/19/24 0606 05/18/24 1118 05/16/24 0842 05/15/24 0846 05/13/24 0816 WBC 12.5* -- 15.9* -- 10.0 HGB 9.4* 10.2* 10.2* -- 9.6* MCV 87 -- 88 -- 89 PLT 250 273 285 < > 283 NA 140 144 142 -- 140 POTASSIUM 4.6 4.3 3.7 -- 4.1 CHLORIDE 101 102 104 -- 107 CO2 31* 32* 31* -- 27 BUN 18.7 19.1 27.0* -- 20.0 CR 0.31* 0.31* 0.33* -- 0.33* ANIONGAP 8 10 7 -- 6* HOLLY 8.6* 8.6* 8.9 -- 8.7* GLC 137* 84 128* -- 94 < > = values in this interval not displayed. No results found for this or any previous visit (from the past 24 hour(s)). Medications Current Facility-Administered Medications Medication Dose Route Frequency Provider Last Rate Last Admin lactated ringers infusion Intravenous Continuous AlfredoPeter cesar MD 75 mL/hr at 05/19/24 0835 New Bag at 05/19/24 0835 Current Facility-Administered Medications Medication Dose Route Frequency Provider Last Rate Last Admin acetaminophen (TYLENOL) tablet 975 mg 975 mg Oral Q8H AlfredoPeter cesar MD 975 mg at 05/19/24 0825 amoxicillin-clavulanate (AUGMENTIN) 875-125 MG per tablet 1 tablet 1 tablet Oral Q12H [facility] (06/01) Peter Alfredo MD 1 tablet at 05/19/24 0826 diclofenac (VOLTAREN) 1 % topical gel 4 g 4 g Topical TID Peter Alfredo MD 4 g at 05/18/24 0923 doxycycline hyclate (VIBRAMYCIN) capsule 100 mg 100 mg Oral Q12H [facility] (06/01) Peter Alfredo MD 100 mg at 05/19/24 0826 enoxaparin ANTICOAGULANT (LOVENOX) injection 40 mg 40 mg Subcutaneous Q24H AlfredoPeter cesar MD furosemide (LASIX) tablet 40 mg 40 mg Oral Daily AlfredoPeter cesar MD 40 mg at 05/19/24 0826 gabapentin (NEURONTIN) capsule 400 mg 400 mg Oral TID AlfredoPeter cesar MD 400 mg at 05/19/24 0825 [Held by provider] heparin ANTICOAGULANT injection 5,000 Units 5,000 Units Subcutaneous Q8H Ambar Joseph MD 5,000 Units at 05/17/24 2208 lactobacillus rhamnosus (GG) (CULTURELL) capsule 1 capsule 1 capsule Oral Daily AlfredoPeter cesar MD1 capsule at 05/19/24 08 Lidocaine (LIDOCARE) 4 % Patch 3 patch 3 patch Transdermal Q24h AlfredoPeter cesar MD 3 patch at 05/17/24 223 metoprolol tartrate (LOPRESSOR) tablet 25 mg 25 mg Oral BID AlfredoPeter cesar MD 25 mg at 05/19/24 08 multivitamin w/minerals (THERA-VIT-M) tablet 1 tablet 1 tablet Oral Daily AlfredoPeter cesar MD 1 tablet at 05/19/24 08 [Held by provider] naproxen (NAPROSYN) tablet 250 mg 250 mg Oral Daily with breakfast Anna Fajardo MD polyethylene glycol (MIRALAX) Packet 17 g 17 g Oral Daily AlfredoPeter cesar MD 17 g at 05/19/24 08 potassium chloride (KLOR-CON) Packet 40 mEq 40 mEq Oral Once AlfredoPeter cesar MD predniSONE (DELTASONE) tablet 10 mg 10 mg Oral or NG Tube Daily AlfredoPeter cesar MD 10 mg at 05/19/24 0826 senna-docusate (SENOKOT-S/PERICOLACE) 8.6-50 MG per tablet 2 tablet 2 tablet Oral or NG Tube BID AlfredoPeter cesar MD 2 tablet at 05/19/24 0825 sodium chloride (PF) 0.9% PF flush 10 mL 10 mL Intracatheter Q8H Peter Alfredo MD sodium chloride (PF) 0.9% PF flush 3 mL 3 mL Intracatheter Q8H AlfredoPeter cesar MD 3 mL at sodium chloride (PF) 0.9% PF flush 3 mL 3 mL Intracatheter Q8H Peter Alfredo MD 3 mL at sodium hypochlorite (DAKINS half-strength) external solution Irrigation BID Peter Alfredo MD Given at 05/18/24 0933 vitamin C (ASCORBIC ACID) tablet 250 mg 250 mg Oral Daily Peter Alfredo MD 250 mg at 05/19/24 0826 zinc sulfate (ZINCATE) capsule 220 mg 220 mg Oral or NG Tube QPM Peter Alfredo MD 220 mg at 05/18/24 2038 * Peter Alfredo MD - 05/19/2024 7:23 AM CDT Images from the original note were not included. COLON & RECTAL SURGERY PROGRESS NOTE 05/19/2024 Post-op Day # 1 SUBJECTIVE: Abdominal pain well-controlled, denies nausea or vomiting with sips of liquids last night. No colostomy gas or stool yet. OBJECTIVE: Temp: [97 ??F (36.1 ??C)-98.9 ??F (37.2 ??C)] 98.2 ??F (36.8 ??C) Pulse: [71-90] 77 Resp: [12-22] 22 BP: (111-152)/(42-80) 152/80 SpO2: [93 %-100 %] 95 % Intake/Output Summary (Last 24 hours) at 05/19/2024 0723 Last data filed at 05/19/2024 0640 Gross per 24 hour Intake 1105 ml Output 1790 ml Net -685 ml GENERAL: Awake, alert, no acute distress HEAD: Normocephalic atraumatic SCLERA: Anicteric EXTREMITIES: Warm and well perfused ABDOMEN: Soft, appropriately tender, non-distended. No guarding, rigidity, or peritoneal signs. Colostomy pink and above the skin. INCISION: C/d/i, mild ecchymosis around incisions LABS: Lab Results Component Value Date WBC 12.5 05/19/2024 WBC 14.8 12/13/2013 Lab Results Component Value Date HGB 9.4 05/19/2024 HGB 8.4 12/13/2013 Lab Results Component Value Date HCT 31.3 05/19/2024 HCT 27.5 12/13/2013 Lab Results Component Value Date PLT 250 05/19/2024 PLT 273 12/14/2013 Last Basic Metabolic Panel: Lab Results Component Value Date NA 140 05/19/2024 NA 137 12/14/2013 Lab Results Component Value Date POTASSIUM 4.6 05/19/2024 POTASSIUM 4.2 12/14/2013 Lab Results Component Value Date CHLORIDE 101 05/19/2024 CHLORIDE 96 12/14/2013 Lab Results Component Value Date HOLLY 8.6 05/19/2024 HOLLY 7.4 12/14/2013 Lab Results Component Value Date CO2 31 05/19/2024 CO2 40 12/14/2013 Lab Results Component Value Date BUN 18.7 05/19/2024 BUN 27 12/14/2013 Lab Results Component Value Date CR 0.31 05/19/2024 CR 0.37 12/14/2013 Lab Results Component Value Date GLC 137 05/19/2024 GLC 171 03/09/2024 GLC 95 12/14/2013 ASSESSMENT/PLAN: POD#1 s/p laparoscopic end sigmoid colostomy creation, recovering appropriately. 1. Low fiber diet 2. Multimodal pain control 3. Lovenox for ppx 4. WOCN for ostomy teaching Discussed with Dr. Alfredo. For questions/paging, please contact the CRS office at [phone]. Sanchez Sparks MD, MS Fellow, Colon & Rectal Surgery [facility] 05/19/2024 7:23 AM CRS Staff Agree with above Peter Alfredo MD FACS FASCRS Colorectal Surgeon [facility] [address] , [address] [place] [address] T: [phone] F: [phone] Pager: [phone] [email or web address] * Peter Alfredo MD - 05/18/2024 4:42 PM CDT Images from the original note were not included. CRS Staff Spoke with patient. Does not want shocks or compressions. She is ok to be intubated for procedure and if need be remain on ventilator for necessary period of time to wean to extubate. Peter Alfredo MD FACS FASCRS Colorectal Surgeon [facility] [address], [address] [place] [address] T: [phone] F: [phone] Pager: [phone] [email or web address] * Johanny Harrison RN - 05/18/2024 3:03 PM CDT Images from the original note were not included. [facility] Nurse Inpatient Assessment Consulted for: 05/16 Ostomy Evaluate for colostomy, likely dividied loop 05/12 Ostomy Loop colostomy Request from daughter for you to call her regarding potential ostomy. She has questions about management and difficulty 05/10 Wound acute on chronic osteomyelitis Summary: patient with POA wounds to buttock x3 stage 4, noted stable / improving on follow up assessment 05/18. Marked for ostomy 05/17. Patient History (according to provider note(s): 78 year old female with medical history of history of transverse myelitis, paraplegia, neurogenic bladder with chronic indwelling Cristobal catheter, decubitus ulcers with chronic osteomyelitis, RA on chronic prednisone therapy, HUI, HFpEF, atrial fibrillation, hypertension, gastric ulcer presented tot ED with weakness. Assessment: Areas visualized during today's visit: Focused: and Sacrum/coccyx Wound location: buttock, coccyx right ischial tuberosity and right buttock Coccyx and right buttock Right IT view Last photo: 05/18 Wound due to: Pressure Injury x3 stage 4 per historical charting POA Wound history/plan of care: patient reports she has been wheelchair dependent since she was 6 yearsold, denies desire for colostomy, describes history of using different wound modalities including wound vac and vashe, states decreased desire to use wound vac due to previous cumbersome management, informs staff her daughter helps with her cares, states she uses a hospital bed at home and wheelchair with a cushion which is 2 years old, describes having a poor appetite recently Wound base: granulation tissue and non-granular tissue to visible wound bases Palpation of the wound bed: normal Drainage: moderate to large Description of drainage: serous and serosanguinous Measurements (length x width x depth, in cm): coccyx 3.5cm x 3cm x 3.5cm, right buttock 2.5cm x 4.5cm x 10.5cm, right IT 2.5cm x 2.5cm x 2.5cm , unchanged 05/18 Tunneling: N/A Undermining: N/A Periwound skin: Intact Color: normal and consistent with surrounding tissue Temperature: normal Odor: none resolved 05/18 Pain: moderate, Pain interventions prior to dressing change: 1 hour prior to dressing change provided by primary RN Treatment goal: Heal per patient stated goal STATUS: improving and stable Supplies ordered: discussed with RN Treatment Plan: 05/11/24 1027 sodium hypochlorite (DAKINS half-strength) external solution Start: 05/11/24 1030, Irrigation, 2 TIMES DAILY, Routine Admin Instructions: Use with wound cares BID to buttock wounds x3 for cleansing and application to gauze for wound packing 05/11/24 1027 Skin care precautions Start: 05/11/24 1026, EFFECTIVE NOW, Routine Comments: Pressure Injury Prevention (PIP) Plan: If patient is declining pressure injury prevention interventions: Explore reason why and address patient's concerns, Educate on pressure injury risk and prevention intervention(s), If patient is still declining, document informed refusal , and Ensure Care team is aware ( provider, charge nurse, etc) Mattress: Follow bed algorithm, reassess daily and order specialty mattress, if indicated. HOB: Maintain at or below 30 degrees, unless contraindicated Repositioning in bed: Every 1-2 hours , Left/right positioning; avoid supine, and Raise foot of bedprior to raising head of bed, to reduce patient sliding down (shear) Heels: Keep elevated off mattress and Pillows under calves Protective Dressing: wound care orders for buttock. Mepilex for protection to other areas Positioning Equipment: as needed Fluidized positioner (#[id number] or #[id number]) to help maintain side lying position. Chair positioning: Chair cushion (#[id number]) , Assist patient to reposition hourly, and Do NOT use a donut for sitting (this increases pressure to smaller area and creates a higher potential for injury) If patient has a buttock pressure injury, or high risk for PI use chair cushion or SPS. Moisture Management: Perineal cleansing /protection: Follow Incontinence Protocol, Avoid brief in bed, Clean and dry skin folds with bathing , and Moisturize dry skin Under Devices: Inspect skin under all medical devices during skin inspection , Ensure tubes are stabilized without tension, and Ensure patient is not lying on medical devices or equipment when repositioned Ask provider to discontinue device when no longer needed. Wound care Start: 05/11/24 1800, 2 TIMES DAILY, Routine Comments: Location: buttock x3 (right IT) Care: provided BID and PRN for soiling by primary RN 1. Remove dressings 2. Cleanse and Irrigate the wounds and periwound skin with Dakins solution per MAR BID (sodium hypochlorite DAKINS half-strength external solution), irrigate and flush the wounds with the solution, wet 4x4 gauze and scrub in gentle circles. Then pat dry 3. Apply skin prep (3M no sting skin barrier film or sure prep) to wound edges and periwound skin, let dry 4. Wet some rosy roll gauze or kerlix with Dakins solution, use a cotton tipped applicator to tuckinto wound bases for packing, do NOT over pack - this will cause pain and tissue damage, do pack the moist gauze all the way to the base or deepest part of the wound 5. Secure with 4x4 mepilex, ok to use each up to 5 days or until drainage is saturating the foam touching three corners, ok to lift for routine skin assessments 05/11/24 1026 Nutrition Services Adult IP Consult ONE TIME Complete References: Medical Nutrition Therapy policy and MNT protocol Provider: (Not yet assigned) Question Answer Comment Reason for Consult: RN Consult - specify Reason Reason for Consult: wound healing support needs 05/18/24 0929 Wound care ONE TIME Comments: 05/18/24 Before OR Today 1x: Primary RN to remove dressings, cleanse and irrigate with dakins solution, apply mepilex bandages including mepilex sacral over sacrum before going to surgery (okto follow current plan of care for wound care before and after OR 05/18) Orders: Reviewed and Updated RECOMMEND PRIMARY TEAM ORDER: None, at this time Education provided: plan of care, wound progress, and Off-loading pressure Discussed plan of care with: Patient, Family, and Nurse [facility] nurse follow-up plan: weekly for wound follow up assessment, daily follow up for ostomy teaching after surgery Notify [facility] if wound(s) deteriorate. Nursing to notify the Provider(s) and re-consult the [facility] Nurse if new skin concern. DATA: Current support surface: Standard Low air loss (MARSHALL pump, Isolibrium, Pulsate) Containment of urine/stool: Incontinence Protocol, Incontinent pad in bed, and Indwelling catheter BMI: Body mass index is 28.85 kg/m??. Active diet order: Orders Placed This Encounter Diet NPO per Anesthesia Guidelines for Procedure/Surgery Except for: Meds Output: I/O last 3 completed shifts: In: 4000 [P.O.:4000] Out: 2000 [Urine:2000] Labs: Recent Labs Lab 05/18/24 1118 05/16/24 0842 HGB 10.2* 10.2* WBC -- 15.9* Pressure injury risk assessment: Sensory Perception: 2-->very limited Moisture: 3-->occasionally moist Activity: 2-->chairfast Mobility: 2-->very limited Nutrition: 2-->probably inadequate Friction and Shear: 1-->problem Brandon Score: 12 Johanny CWOCN 1st choice: Securely message with [facility] ([facility] [facility]) (2nd option: [facility] Office , messages checked periodically Mon- Fri 8a-4p) * Patricia Barrett RN - 05/18/2024 1:52 PM CDT Notified provider about indwelling cristobal catheter discussed removal or continued need. Did provider choose to remove indwelling cristobal catheter? No Provider's cristobal indication for keeping indwelling cristobal catheter: Other - chronic indwelling foleycatheter with plan to discharge with catheter in place. Is there an order for indwelling cristobal catheter? Yes *If there is a plan to keep cristobal catheter in place at discharge daily notification with provider is not necessary, but please add a notation in the treatment team sticky note that the patient will be discharging with the catheter. * Anna Fajardo MD - 05/18/2024 1:42 PM CDT [facility] Medicine Progress Note - Hospitalist Service Date of Admission: 05/10/2024 Assessment & Plan Prerna Major is a 78 year old female with medical history of history of transverse myelitis, paraplegia, neurogenic bladder with chronic indwelling Cristobal catheter, decubitus ulcers with chronic osteomyelitis, RA on chronic prednisone therapy, HUI, HFpEF, atrial fibrillation, hypertension, gastric ulcer presented to the ED with weakness. During this admission, she has been treated for acute Osteomyelitis of coccyx, along with routine cares of chronic decubitus pressure wounds. Diverting colostomy entertained, but patient declined... 05/16/24 discharge was being arranged, when bedside RN noted feces coming from a paracoccygeal wound.Patient decided she would go ahead with the suggested diverting colostomy prior to leaving. Surgery scheduled for today, 05/18/24 . recent hospitalizations: --Admitted [facility] on 03/06 -03/14/2024 for septic shock secondary to E. coli UTI with bacteremia, stage IV right ischial tuberosity decubitus ulcer. --Readmitted at [facility] on 03/21/[address] showed a sacral decubitus ulcer extending to the sacrum, right deep gluteal soft tissue tunneling and lower gluteal/upper thigh ulceration extending to the ischial tuberosity with evidence of chronic osteomyelitis. General surgery, infectious disease followed and recommended transfer to tertiary center. ---Was admitted at [facility] 03/24 to 03/31/2024. General surgery, infectious disease, wound care closely followed, impression chronic osteomyelitis. Echocardiogram negative for endocarditis.Cultures from outside hospital positive for Alice albicans. Was treated with IV antifungals, switch to oral fluconazole on discharge, completed course on 04/07/2024 for total of 14 days. Sepsis likely from infected decubitus ulcer, urinary source. Acute osteomyelitis involving the coccyx Chronic osteomyelitis involving the right ischium. Chronic decubitus ulcer. History of MRSA infection. >Diverting colostomy today, 05/18/24 >Resume subcutaneous heparin DVT prophyllaxis as well as naproxyn post op, when okay with surgeon. >> as of 05/13/24, on augmentin and doxy (had been on ceftriaxone, daptomycin and metronidazolejust prior), intent is to treat with this regimen for another week (through 05/20/24) (ID has signed off) Wound care following: Pulsatile mattress in place, routine wound cares during this stay. blood cultures negative. Her presentation with acute coccyx OM is summarized below: --Presented with abdominal discomfort all over the abdomen associated cramping. Associated nausea, no vomiting. Max of 101, associated headache and generalized weakness with poor intake. RN has been following for wound care, cultures positive for bacterial infection and had started on oral amoxicillin and metronidazole 3 days prior. --05/10/24 CT abdomen/pelvis = multiple decubitus ulcers, suspicious for acute osteomyelitis involving the coccyx, and chronic osteomyelitis involving the right ischium. No drainable fluid collections. Admitted to hospital Urinary tract infection-catheter related. Neurogenic bladder with chronic indwelling Cristobal catheter Has chronic indwelling Cristobal catheter, reports last catheter last changed 2 weeks back. Catheter changed in ED. Now draining clear concentrated urine. --UA large leukocyte esterase, 123 WBCs, few bacteria and WBC clumps present. -- Augmentin will cover UTI. Unfortunately urine culture was not sent on admission. Urine culture sent on 05/12/2024. Might not be reliable as patient already received antibiotics since admission. Anal wall thickening with large rectal fecal burden on imaging Chronic constipation. Reports has chronic constipation, bowel movement once in 3 to 4 days. Last bowel movement this morning, reports well-formed without blood or melena. -- Prior to admission on narcotics, patient reluctant for bowel meds as reports difficulty with wound care for decubitus ulcer. --CT abdomen and pelvis with no small bowel obstruction. Large rectal fecal burden. Anal wall thickening is likely related to chronic inflammation. -- Scheduled bowel meds. As needed bowel meds, suppository ordered. Minimize narcotic use. --Radiologist recommended follow-up advised to exclude underlying lesions -given anal wall thickening. -- CRS surgery may clarify this during surgery today, 05/18/24 Physical deconditioning from medical illness, chronic debility. Transverse myelitis with paraplegia. Lives at home with her daughter, has home care. Reports mostly bedbound, uses motorized wheelchair as needed. Now reporting generalized weakness. --Address medical issues as discussed above. Fall precautions. PT, OT evaluation Chronic pain on narcotics. Continue BUSINESS MANAGEMENT CONSULTANT Tylenol. Continue BUSINESS MANAGEMENT CONSULTANT gabapentin. Continue BUSINESS MANAGEMENT CONSULTANT as needed oxycodone, minimize use as able to. Patient with acute on chronic pain issues due to decubitus ulcers. Pain medicine team consultation requested regarding management of pain issues Discharge Recommendations Per PAIN Consult- We recommend prescribing the following at the time of discharge: TBD for opioid management gabapentin 400 mg tid Naproxen sodium, acetaminophen as over the counter Oxycodone 10 mg every 4 hrs prn limit 30 mg per day Topicals lidocaine patch and lidocaine uroget gel Constipation: Dulcolax suppository ordered on 05/12 Moderate atherosclerotic disease. Chronic heart failure with preserved EF [last EF greater than 75% from 01/14/2023] Atrial fibrillation not on anticoagulation. Hypertension BUSINESS MANAGEMENT CONSULTANT Lasix held on admission. Restarted on 05/12/2024 Continue BUSINESS MANAGEMENT CONSULTANT Toprol, switch to immediate release 25 mg twice daily with hold parameters. ---- BUSINESS MANAGEMENT CONSULTANT not on aspirin or statin. Defer further cardiac workup to outpatient. Telemetry monitoring. Intake output monitoring, daily weights. Hypokalemia. Potassium replacement ordered Potassium normal at 4.1 Obstructive sleep apnea Uses BiPAP as outpt. Has chronic CO2 retention. Resume BiPAP per home settings. Rheumatoid arthritis Continue on BUSINESS MANAGEMENT CONSULTANT on prednisone 10 mg daily. Chronic Anemia likely secondary to chronic disease. Baseline hemoglobin 9-10 range. Hemoglobin at around previous baseline. Incidental renal stones. CT - No hydronephrosis. Nonobstructive right renal pelvic stones including 13 mm right UPJ calculus. Recommend follow-up with urology as outpatient if symptomatic. Diabetes mellitus with a hemoglobin A1c of 6.6. BUSINESS MANAGEMENT CONSULTANT not on meds. BS are 94 - 128 Monitor blood sugars , if elevated will consider sliding scale insulin. Diet :Combination Diet Regular Diet Adult Snacks/Supplements Adult: Ensure Max Protein (bariatric); Between Meals Snacks/Supplements Adult: Expedite Bottle; With Meals DVT Prophylaxis: Pneumatic Compression Devices Code Status: No CPR- Do NOT Intubate 51 MINUTES SPENT BY ME on the date of service doing chart review, history, exam, documentation & further activities per the note. Medically Ready for Discharge: Anticipated in 2-4 Days Diet: Snacks/Supplements Adult: Expedite Bottle; With Meals Snacks/Supplements Adult: Ensure Max Protein (bariatric); Between Meals Diet NPO per Anesthesia Guidelines for Procedure/Surgery Except for: Meds DVT Prophylaxis: Heparin subcutaneous - on hold for surgery Cristobal Catheter: PRESENT, indication: Acute retention or obstruction (chronic) Lines: PRESENT Cardiac Monitoring: None Code Status: No CPR- Do NOT Intubate Clinically Significant Risk Factors # Hypoalbuminemia: Lowest albumin = 3.2 g/dL at 05/10/2024 2:44 PM, will monitor as appropriate # DMII: A1C = 6.6 % (Ref range: <5.7 %) within past 6 months # Overweight: Estimated body mass index is 28.85 kg/m?? as calculated from the following: Height as of this encounter: 1.524 m (5'). Weight as of this encounter: 67 kg (147 lb 11.3 oz). # Financial/Environmental Concerns: none Disposition Plan Medically Ready for Discharge: Anticipated in 2-4 Days - when surgically stable. She is medically ready . Anna Fajardo MD Hospitalist Service [facility] Securely message with [facility] (more info) Text page via [facility] Paging/Directory Interval History Has been doing Incentive spirometry in anticipation of surgery Physical Exam Vital Signs: Temp: 98.2 ??F (36.8 ??C) Temp src: Oral BP: 125/48 Pulse: 82 Resp: 16 SpO2: 95 % O2 Device: None (Room air) Weight: 147 lbs 11.33 oz Constitutional:Awake, alert, cooperative, no apparent distress sitting up in bed, eating maltese toast Respiratory: Clear to auscultation bilaterally, no crackles or wheezing Cardiovascular: Regular rate and rhythm, normal S1 and S2, and no murmur noted distant due to body habitus GI: Normal bowel sounds, soft, non-distended, non-tender Cholecystectomy scar Skin/Integumen: Extensive decubitus ulcers present per WOC and providers notes. Unable to inspect today Neuro : paraplegia. contractures noted lower extremity A&OX4 Medical Decision Making 45 MINUTES SPENT BY ME on the date of service doing chart review, history, exam, documentation & further activities per the note. Data I have personally reviewed the following data over the past 24 hrs: N/A \ 10.2 (L) / 273 144 102 19.1 / 84 4.3 32 (H) 0.31 (L) \ Imaging results reviewed over the past 24 hrs: No results found for this or any previous visit (from the past 24 hour(s)). * Janak Robledo PA-C - 05/18/2024 7:12 AM CDT Images from the original note were not included. COLON & RECTAL SURGERY PROGRESS NOTE May 18, 2024 SUBJECTIVE: Was able to finish the bowel prep overnight. Had some nausea during prep but improved now. Ready for surgery today. Says she would now be ok with intubation/ventilator if absolutely necessary. AVSS. OBJECTIVE: Temp: [97.7 ??F (36.5 ??C)-98.3 ??F (36.8 ??C)] 98.2 ??F (36.8 ??C) Pulse: [70-82] 82 Resp: [16-18] 16 BP: (89-141)/(48-60) 125/48 SpO2: [94 %-97 %] 95 % Intake/Output Summary (Last 24 hours) at 05/18/2024 1102 Last data filed at 05/18/2024 1022 Gross per 24 hour Intake 4000 ml Output 1400 ml Net 2600 ml GENERAL: Awake, alert, no acute distress HEAD: Normocephalic atraumatic SCLERA: Anicteric EXTREMITIES: Warm and well perfused ABDOMEN: Soft, non-tender, non-distended. No guarding, rigidity, or peritoneal signs. Marking in place. LABS: Lab Results Component Value Date WBC 15.9 05/16/2024 WBC 14.8 12/13/2013 Lab Results Component Value Date HGB 10.2 05/16/2024 HGB 8.4 12/13/2013 Lab Results Component Value Date HCT 35.0 05/16/2024 HCT 27.5 12/13/2013 Lab Results Component Value Date PLT 285 05/16/2024 PLT 273 12/14/2013 Last Basic Metabolic Panel: Lab Results Component Value Date NA 142 05/16/2024 NA 137 12/14/2013 Lab Results Component Value Date POTASSIUM 3.7 05/16/2024 POTASSIUM 4.2 12/14/2013 Lab Results Component Value Date CHLORIDE 104 05/16/2024 CHLORIDE 96 12/14/2013 Lab Results Component Value Date HOLLY 8.9 05/16/2024 HOLLY 7.4 12/14/2013 Lab Results Component Value Date CO2 31 05/16/2024 CO2 40 12/14/2013 Lab Results Component Value Date BUN 27.0 05/16/2024 BUN 27 12/14/2013 Lab Results Component Value Date CR 0.33 05/16/2024 CR 0.37 12/14/2013 Lab Results Component Value Date GLC 128 05/16/2024 GLC 171 03/09/2024 GLC 95 12/14/2013 ASSESSMENT/PLAN: 78 yo F with complex PMHx and longstanding history of decubitus pressure ulcers with chronic osteomyelitis and constipation, now interested in colostomy for improved wound control/hygiene. - Diverting colostomy this afternoon, exact time still TBD - NPO ex meds - Will be getting midline placed this morning - Has been marked by WOCN, will need stoma teaching - Pre-op labs ordered - Hold [facility] - Patient would like to change her code status to DNR/ok for intubation (only if absolutely necessary) Discussed with Dr. Alfredo. For questions/paging, please contact the CRS office at [phone]. Janak Robledo PA-C Colorectal Physician [facility] [address] [place] [address] [place] [address] T: [phone] F: [phone] * Rosmery Roque RN - 05/17/2024 8:45 PM CDT Patient with midline order. Plan is for surgery in afternoon of 05/18/24, npo after 0500. Offer to [address] midline this evening, patient states she would prefer to have placed in am. Will defer to next VAT shift. * Patricia Barrett RN - 05/17/2024 6:43 PM CDT Notified provider about indwelling cristobal catheter discussed removal or continued need. Did provider choose to remove indwelling cristobal catheter? No Provider's cristobal indication for keeping indwelling cristobal catheter: Neurogenic Bladder. Is there an order for indwelling cristobal catheter? Yes *If there is a plan to keep cristobal catheter in place at discharge daily notification with provider is not necessary, but please add a notation in the treatment team sticky note that the patient will be discharging with the catheter. * Dede Downing RN - 05/17/2024 12:48 PM CDT Received order for picc line Unit RN to clarify with ordering provider the reason for the picc lineif just for access could do a midline. Awaiting update * Peter Alfredo MD - 05/17/2024 9:58 AM CDT Images from the original note were not included. COLON & RECTAL SURGERY PROGRESS NOTE May 17, 2024 SUBJECTIVE: Meeting with WOCN this morning to start ostomy education. On board with surgery tomorrow. Notes concern about needing to be on a ventilator after surgery, history of difficult extubation,and needing coaching to breathe on her own in the past. OBJECTIVE: Temp: [97.4 ??F (36.3 ??C)-98 ??F (36.7 ??C)] 98 ??F (36.7 ??C) Pulse: [76-95] 90 Resp: [16-18] 16 BP: (106-143)/(43-61) 124/49 SpO2: [93 %-98 %] 98 % Intake/Output Summary (Last 24 hours) at 05/17/2024 1000 Last data filed at 05/17/2024 0800 Gross per 24 hour Intake 720 ml Output 1250 ml Net -530 ml GENERAL: Awake, alert, no acute distress HEAD: Normocephalic atraumatic SCLERA: Anicteric EXTREMITIES: Warm and well perfused LABS: Lab Results Component Value Date WBC 15.9 05/16/2024 WBC 14.8 12/13/2013 Lab Results Component Value Date HGB 10.2 05/16/2024 HGB 8.4 12/13/2013 Lab Results Component Value Date HCT 35.0 05/16/2024 HCT 27.5 12/13/2013 Lab Results Component Value Date PLT 285 05/16/2024 PLT 273 12/14/2013 Last Basic Metabolic Panel: Lab Results Component Value Date NA 142 05/16/2024 NA 137 12/14/2013 Lab Results Component Value Date POTASSIUM 3.7 05/16/2024 POTASSIUM 4.2 12/14/2013 Lab Results Component Value Date CHLORIDE 104 05/16/2024 CHLORIDE 96 12/14/2013 Lab Results Component Value Date HOLLY 8.9 05/16/2024 HOLLY 7.4 12/14/2013 Lab Results Component Value Date CO2 31 05/16/2024 CO2 40 12/14/2013 Lab Results Component Value Date BUN 27.0 05/16/2024 BUN 27 12/14/2013 Lab Results Component Value Date CR 0.33 05/16/2024 CR 0.37 12/14/2013 Lab Results Component Value Date GLC 128 05/16/2024 GLC 171 03/09/2024 GLC 95 12/14/2013 ASSESSMENT/PLAN: 78 yo F with complex PMHx and longstanding history of decubitus pressure ulcers with chronic osteomyelitis and constipation, now interested in considering colostomy for improved wound control/hygiene. - Will add on for diverting colostomy tomorrow afternoon with Dr. Alfredo - Clear liquid diet today, NPO at midnight - Golytely bowel prep to start at 4 pm today - WOCN consulted for stoma marking/teaching - Hold SQH starting tomorrow morning - Patient notes concern for needing a ventilator after surgery and history of difficult extubation Will discuss with Dr. Alfredo. For questions/paging, please contact the CRS office at [phone]. Janak Robledo PA-C Colorectal Physician [facility] [address] [place] [address] T: [phone] F: [phone] CRS Staff Seen and examined Agree with above. Will update anesthesia on difficult extubation Orders written for bowel prep. Can have clear liquids in AM. No IV access. Will have vascular access team place picc I performed a history and physical examination of the patient and discussed their management with the physician coding assistant. I reviewed the physician assistants note and agree with the documented findings and plan of care. Peter Alfredo MD [facility] Colorectal Surgeon [facility] [address], [address] [place] [address] T: [phone] F: [phone] Pager: [phone] [email or web address] * Anna Fajardo MD - 05/17/2024 9:06 AM CDT [facility] Medicine Progress Note - Hospitalist Service Date of Admission: 05/10/2024 Assessment & Plan Prerna Major is a 78 year old female with medical history of history of transverse myelitis, paraplegia, neurogenic bladder with chronic indwelling Cristobal catheter, decubitus ulcers with chronic osteomyelitis, RA on chronic prednisone therapy, HUI, HFpEF, atrial fibrillation, hypertension, gastric ulcer presented to the ED with weakness. 05/15/24 discharge was being arranged, when bedside RN noted feces coming from a paracoccygeal wound.Patient would like to reconsider the recommendation for diverting colostomy. --Admitted [facility] on 03/06 -03/14/2024 for septic shock secondary to E. coli UTI with bacteremia, stage IV right ischial tuberosity decubitus ulcer. --Readmitted at [facility] on 03/21/[address] showed a sacral decubitus ulcer extending to the sacrum, right deep gluteal soft tissue tunneling and lower gluteal/upper thigh ulceration extending to the ischial tuberosity with evidence of chronic osteomyelitis. General surgery, infectious disease followed and recommended transfer to tertiary center. ---Was admitted at [facility] 03/24 to 03/31/2024. General surgery, infectious disease, wound care closely followed, impression chronic osteomyelitis. Echocardiogram negative for endocarditis.Cultures from outside hospital positive for Alice albicans. Was treated with IV antifungals, switch to oral fluconazole on discharge, completed course on 04/07/2024 for total of 14 days. Sepsis likely from infected decubitus ulcer, urinary source. Acute osteomyelitis involving the coccyx Chronic osteomyelitis involving the right ischium. Chronic decubitus ulcer. History of MRSA infection. Patient had initially declined recommended diverting colostomy as presented by both surgery and CRS, but during discharge process yesterday, 05/16, she changed her mind and would like to proceed duringthis admission. Surgery is tentatively scheduled for 05/18, Optimization for surgery will include holding morning heparin subcutaneous, holding NSAIDs. SHe is independently performing aggressive pulmonary toilet exercises. She reports a history of difficult extubation during a hospitalization for sepsis ([facility], a couple years ago, unable to find this summary in EMR), but no prolonged ventilation . This was in context of sepsis however. 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 She does have multiple factors that do increase her surgical risks, including her cardiac disease, chronic immunosuppression, prednisone daily use immobility and obesity. H/o difficult extubation in past. Would defer to anesthesiology regarding stress steroid dosing/use on the day of surgery. Her presentation with acute coccyx OM is summarized below: --Presented with abdominal discomfort all over the abdomen associated cramping. Associated nausea, no vomiting. Max of 101, associated headache and generalized weakness with poor intake. RN has been following for wound care, cultures positive for bacterial infection and was started on oral amoxicillin and metronidazole 3 days prior. --05/10/24 CT abdomen/pelvis = multiple decubitus ulcers, suspicious for acute osteomyelitis involving the coccyx, and chronic osteomyelitis involving the right ischium. No drainable fluid collections. >> as of 05/13/24, changed to augmentin and doxy (had been on ceftriaxone, daptomycin and metronidazole), intent is to treat with this regimen for another week (through 05/20/24) (ID has signed off) Wound care following: Pulsatile mattress in place, routine wound cares during this stay. blood cultures negative. Urinary tract infection-catheter related. Neurogenic bladder with chronic indwelling Cristobal catheter Has chronic indwelling Cristobal catheter, reports last catheter last changed 2 weeks back. Catheter changed in ED. Now draining clear concentrated urine. --UA large leukocyte esterase, 123 WBCs, few bacteria and WBC clumps present. -- Augmentin will cover t UTI. Unfortunately urine culture was not sent on admission. Urine culture sent on 05/12/2024. Might not be reliable as patient already received antibiotics since admission. Anal wall thickening with large rectal fecal burden on imaging Chronic constipation. Reports has chronic constipation, bowel movement once in 3 to 4 days. Last bowel movement this morning, reports well-formed without blood or melena. -- Prior to admission on narcotics, patient reluctant for bowel meds as reports difficulty with wound care for decubitus ulcer. --CT abdomen and pelvis with no small bowel obstruction. Large rectal fecal burden. Anal wall thickening is likely related to chronic inflammation. -- Scheduled bowel meds. As needed bowel meds, suppository ordered. Minimize narcotic use. --Radiologist recommended follow-up advised to exclude underlying lesions -given anal wall thickening. -- CRS surgery may clarify this Physical deconditioning from medical illness, chronic debility. Transverse myelitis with paraplegia. Lives at home with her daughter, has home care. Reports mostly bedbound, uses motorized wheelchair as needed. Now reporting generalized weakness. --Address medical issues as discussed above. Fall precautions. PT, OT evaluation Chronic pain on narcotics. Continue BUSINESS MANAGEMENT CONSULTANT Tylenol. Continue BUSINESS MANAGEMENT CONSULTANT gabapentin. Continue BUSINESS MANAGEMENT CONSULTANT as needed oxycodone, minimize use as able to. Patient with acute on chronic pain issues due to decubitus ulcers. Pain medicine team consultation requested regarding management of pain issues Discharge Recommendations Per PAIN Consult- We recommend prescribing the following at the time of discharge: TBD for opioid management gabapentin 400 mg tid Naproxen sodium, acetaminophen as over the counter Oxycodone 10 mg every 4 hrs prn limit 30 mg per day Topicals lidocaine patch and lidocaine uroget gel Constipation: Dulcolax suppository ordered on 05/12 Sinus tachycardia likely from sepsis resolved Moderate atherosclerotic disease. Chronic heart failure with preserved EF [last EF greater than 75% from 01/14/2023] Atrial fibrillation not on anticoagulation. Hypertension --Denies any chest pain or palpitations or shortness of breath at this time.Clear lungs. --05/10 EKG sinus tachycardia, heart rate 103, QTc 445. --05/10 CT chest= linear atelectasis, effusions, or pneumothorax. Moderate atherosclerotic disease. BUSINESS MANAGEMENT CONSULTANT Lasix held on admission. Restarted on 05/12/2024 Continue BUSINESS MANAGEMENT CONSULTANT Toprol, switch to immediate release 25 mg twice daily with hold parameters. ---- BUSINESS MANAGEMENT CONSULTANT not on aspirin or statin. Defer further cardiac workup to outpatient. Telemetry monitoring. Intake output monitoring, daily weights. Hypokalemia. Potassium replacement ordered Potassium normal at 4.1 Obstructive sleep apnea Uses BiPAP as outpt. Has chronic CO2 retention. Resume BiPAP per home settings. Rheumatoid arthritis Continue on BUSINESS MANAGEMENT CONSULTANT on prednisone 10 mg daily. Chronic Anemia likely secondary to chronic disease. Baseline hemoglobin 9-10 range. Hemoglobin at around previous baseline. Incidental renal stones. CT - No hydronephrosis. Nonobstructive right renal pelvic stones including 13 mm right UPJ calculus. Recommend follow-up with urology as outpatient if symptomatic. Diabetes mellitus with a hemoglobin A1c of 6.6. BUSINESS MANAGEMENT CONSULTANT not on meds. BS are 94 - 128 Monitor blood sugars , if elevated will consider sliding scale insulin. Diet :Combination Diet Regular Diet Adult Snacks/Supplements Adult: Ensure Max Protein (bariatric); Between Meals Snacks/Supplements Adult: Expedite Bottle; With Meals DVT Prophylaxis: Pneumatic Compression Devices Code Status: No CPR- Do NOT Intubate 51 MINUTES SPENT BY ME on the date of service doing chart review, history, exam, documentation & further activities per the note. Medically Ready for Discharge: Anticipated in 2-4 Days Diet: Combination Diet Regular Diet Adult Snacks/Supplements Adult: Expedite Bottle; With Meals Snacks/Supplements Adult: Ensure Max Protein (bariatric); Between Meals Diet NPO per Anesthesia Guidelines for Procedure/Surgery Except for: Meds DVT Prophylaxis: Heparin SQ Cristobal Catheter: PRESENT, indication: Acute retention or obstruction Lines: None Cardiac Monitoring: None Code Status: No CPR- Do NOT Intubate Clinically Significant Risk Factors # Hypoalbuminemia: Lowest albumin = 3.2 g/dL at 05/10/2024 2:44 PM, will monitor as appropriate # DMII: A1C = 6.6 % (Ref range: <5.7 %) within past 6 months # Overweight: Estimated body mass index is 29.88 kg/m?? as calculated from the following: Height as of this encounter: 1.524 m (5'). Weight as of this encounter: 69.4 kg (153 lb). # Financial/Environmental Concerns: none Disposition Plan Medically Ready for Discharge: Anticipated in 2-4 Days Anna Fajardo MD Hospitalist Service [facility] Securely message with [facility] (more info) Text page via [employer] Paging/Directory Interval History No fevers. Good appetite. Doing bedside spirometry exercises [id number] independently Physical Exam Vital Signs: Temp: 98 ??F (36.7 ??C) Temp src: Oral BP: 124/49 Pulse: 90 Resp: 16 SpO2: 98 % O2 Device: None (Room air) Weight: 152 lbs 15.99 oz Constitutional:Awake, alert, cooperative, no apparent distress sitting up in bed, eating maltese toast Respiratory: Clear to auscultation bilaterally, no crackles or wheezing Cardiovascular: Regular rate and rhythm, normal S1 and S2, and no murmur noted distant due to body habitus GI: Normal bowel sounds, soft, non-distended, non-tender Cholecystectomy scar Skin/Integumen: Extensive decubitus ulcers present per WOC and providers notes. Unable to inspect today Neuro : paraplegia. contractures noted lower extremity A&OX4 Medical Decision Making Data * Aundrea Haile PA-C - 05/15/2024 3:34 PM CDT [facility] General Surgery Daily Progress Note Assessment and Plan: Prerna Major is a 78 year old female with chronic osteomeyleitis, decubitus ulcers, transverse myelitis, and paraplegia who presented with weakness. Patient has been treated in the last few months for septic shock due to stage IV sacral ulcers. PLAN: - Wounds without necrotic tissue and recommend continuing WOC nurse recommendations for wound care.No surgical debridement is needed. - If wounds have a fistulous connection to anus or rectum, this would also be best addressed by colorectal surgery team. - Discussed with patient and daughter that she would be best suited with operation by our colorectal surgery team at the hospital if she would like to pursue diverting colostomy to expedite wound healing. I placed consult for their team to see her. - Patient would like to be medically optimized prior to surgery and this can be done by her hospitalist team. General Surgery will sign off. Please call if questions or concerns. Interval History: Prerna Major is seen on surgical rounds with daughter present. She is tearful with discussing decision to have colostomy if possible but would like to have better cares for her wounds. Per nurse, dressing was changed earlier today with an extensive amount of stool pouring from wound. Due topatient's paraplegia, she does not have pain to the area. Physical Exam: Temp: 98.1 ??F (36.7 ??C) Temp src: Oral BP: (!) 143/59 Pulse: 91 Resp: 20 SpO2: 97 % O2 Device: None (Room air) I/O last 3 completed shifts: In: - Out: 1900 [Urine:1900] GENERAL: VS reviewed, alert, oriented, no acute distress LUNGS: Normal respiratory effort, no wheezing ABDOMEN: Soft, non-distended, open cholecystectomy scar SACRAL WOUNDS: See EPIC for pictures. More lateral wound extends deep towards anus and filled with stool. Difficult to tell if true connection to anus due to contamination. Data Recent Labs Lab 05/15/24 0846 05/13/24 0816 05/11/24 1055 05/10/24 1444 WBC -- 10.0 13.4* 15.6* HGB -- 9.6* -- 10.3* MCV -- 89 -- 86 PLT 255 283 -- 287 NA -- 140 138 140 POTASSIUM -- 4.1 4.1 3.3* CHLORIDE -- 107 106 102 CO2 -- 27 25 28 BUN -- 20.0 12.0 16.0 CR -- 0.33* 0.29* 0.26* ANIONGAP -- 6* 7 10 HOLLY -- 8.7* 8.4* 8.8 GLC -- 94 199* 93 ALBUMIN -- -- -- 3.2* PROTTOTAL -- -- -- 5.2* BILITOTAL -- -- -- 0.4 ALKPHOS -- -- -- 101 ALT -- -- -- 9 AST -- -- -- 17 Aundrea Haile PA-C Please use Vocera to page 7:30am-4pm, page on-call surgeon after 4pm Office number: [phone] 35 minutes spent on date of the encounter doing patient visit, chart review, and documentation. Associated attestation - Ras Hyde MD - 05/16/2024 6:28 AM CDT Physician Attestation I saw and evaluated Prerna Major as part of a shared ELECTRICIAN ASSISTANT/FRANCOIS visit. I personally reviewed the vital signs, medications, labs, and imaging. I personally provided a substantive portion of care for this patient and I approve the care plan aswritten by the SANDY. I was involved with Medical Decision Making including: Please see A&P for additional details of medical decision making. She needs to be diverted. Will involve colorectal. Ras Hyde MD Date of Service (when I saw the patient): 05/15/24 * Franca Perez RN - 05/15/2024 2:40 PM CDT Notification Notified Person: MD Notified Person Name: Anna Fajardo Notification Date/Time: 8109 05/15/2024 Notification Interaction: Vocjose miguel Purpose of Notification: Stool in pt wound. Request surgical consult Orders Received: Provider met with pt. Cancelled discharge. Surgical consult placed. Comments: * Franca Perez, MEME - 05/15/2024 2:39 PM CDT Notified provider about indwelling cristobal catheter discussed removal or continued need. Did provider choose to remove indwelling cristobal catheter? NO Provider's cristobal indication for keeping indwelling cristobal catheter: Indication for continued use: Neurogenic Bladder Is there an order for indwelling cristobal catheter? YES *If there is a plan to keep cristobal catheter in place at discharge daily notification with provider is not necessary, but please add a notation in the treatment team sticky note that the patient will be discharging with the catheter. * Anna Fajardo MD - 05/15/2024 2:13 PM CDT [facility] Medicine Progress Note - Hospitalist Service Date of Admission: 05/10/2024 Assessment & Plan Prerna Major is a 78 year old female with medical history of history of transverse myelitis, paraplegia, neurogenic bladder with chronic indwelling Cristobal catheter, decubitus ulcers with chronic osteomyelitis, RA on chronic prednisone therapy, HUI, HFpEF, atrial fibrillation, hypertension, gastric ulcer presented to the ED with weakness. 05/15/24 discharge was being arranged, when bedside RN noted feces coming from a paracoccygeal wound.Patient would like to reconsider the recommendation for diverting colostomy. --Admitted [facility] on 03/06 -03/14/2024 for septic shock secondary to E. coli UTI with bacteremia, stage IV right ischial tuberosity decubitus ulcer. --Readmitted at [facility] on 03/21/[address] showed a sacral decubitus ulcer extending to the sacrum, right deep gluteal soft tissue tunneling and lower gluteal/upper thigh ulceration extending to the ischial tuberosity with evidence of chronic osteomyelitis. General surgery, infectious disease followed and recommended transfer to tertiary center. ---Was admitted at [facility] 03/24 to 03/31/2024. General surgery, infectious disease, wound care closely followed, impression chronic osteomyelitis. Echocardiogram negative for endocarditis.Cultures from outside hospital positive for Alice albicans. Was treated with IV antifungals, switch to oral fluconazole on discharge, completed course on 04/07/2024 for total of 14 days. Sepsis likely from infected decubitus ulcer, urinary source. Acute osteomyelitis involving the coccyx Chronic osteomyelitis involving the right ischium. Chronic decubitus ulcer. History of MRSA infection. --Presenting with abdominal discomfort all over the abdomen associated cramping. Reports associatednausea, no vomiting. Max of 101, associated headache and generalized weakness with poor intake. Reports home health nurse has been following for wound care, cultures positive for bacterial infection and was started on oral amoxicillin and metronidazole 3 days prior. --05/10/24 CT abdomen/pelvis = multiple decubitus ulcers, suspicious for acute osteomyelitis involving the coccyx, and chronic osteomyelitis involving the right ischium. No drainable fluid collections. >> as of 05/13/24, changed to augmentin and doxy (had been on ceftriaxone, daptomycin and metronidazole), intent is to treat with this regimen for another week (through 05/20/24) (ID has signed off) General surgery consult : As per surgery team wounds look okay no need for debridement. General surgery team is recommending diverting colostomy. Patient has declined, surgery has signed off However, on 05/15/24 feces noted from wound near coccyx. Patient would like to see surgery again prior to d/c Wound care following, pulsatile mattress in place, blood cultures remain negative so far, continue wound care. Urinary tract infection-catheter related. Neurogenic bladder with chronic indwelling Cristobal catheter Has chronic indwelling Cristobal catheter, reports last catheter last changed 2 weeks back. Catheter changed in ED. Now draining clear concentrated urine. --UA large leukocyte esterase, 123 WBCs, few bacteria and WBC clumps present. -- ID following, currently the augmentin will cover most UTI. Unfortunately urine culture was not sent on admission. Urine culture sent on 05/12/2024. Might not be reliable as patient already received antibiotics since admission. Anal wall thickening with large rectal fecal burden on imaging Chronic constipation. Reports has chronic constipation, bowel movement once in 3 to 4 days. Last bowel movement this morning, reports well-formed without blood or melena. -- Prior to admission on narcotics, patient reluctant for bowel meds as reports difficulty with wound care for decubitus ulcer. --CT abdomen and pelvis with no small bowel obstruction. Large rectal fecal burden. Anal wall thickening is likely related to chronic inflammation. -- Scheduled bowel meds. As needed bowel meds, suppository ordered. Minimize narcotic use. --Radiologist recommended follow-up advised to exclude underlying lesions -given anal wall thickening. Discussed with patient and family, age-appropriate health maintenance, follow-up imaging as outpatient. Physical deconditioning from medical illness, chronic debility. Transverse myelitis with paraplegia. Lives at home with her daughter, has home care. Reports mostly bedbound, uses motorized wheelchair as needed. Now reporting generalized weakness. --Address medical issues as discussed above. Fall precautions. PT, OT evaluation Chronic pain on narcotics. Continue BUSINESS MANAGEMENT CONSULTANT Tylenol. Continue BUSINESS MANAGEMENT CONSULTANT gabapentin. Continue BUSINESS MANAGEMENT CONSULTANT as needed oxycodone, minimize use as able to. Patient with acute on chronic pain issues due to decubitus ulcers. Pain medicine team consultation requested regarding management of pain issues Discharge Recommendations Per PAIN Consult- We recommend prescribing the following at the time of discharge: TBD for opioid management gabapentin 400 mg tid Naproxen sodium, acetaminophen as over the counter Oxycodone 10 mg every 4 hrs prn limit 30 mg per day Topicals lidocaine patch and lidocaine uroget gel Constipation: Dulcolax suppository ordered on 05/12 Sinus tachycardia likely from sepsis resolved Moderate atherosclerotic disease. Chronic heart failure with preserved EF [last EF greater than 75% from 01/14/2023] Atrial fibrillation not on anticoagulation. Hypertension --Denies any chest pain or palpitations or shortness of breath at this time.Clear lungs. --EKG sinus tachycardia, heart rate 103, QTc 445. --CT chest with linear atelectasis, effusions, or pneumothorax. Moderate atherosclerotic disease. BUSINESS MANAGEMENT CONSULTANT Lasix held on admission. Restarted on 05/12/2024 Continue BUSINESS MANAGEMENT CONSULTANT Toprol, switch to immediate release 25 mg twice daily with hold parameters. ---- BUSINESS MANAGEMENT CONSULTANT not on aspirin or statin. Defer further cardiac workup to outpatient. Telemetry monitoring. Intake output monitoring, daily weights. Hypokalemia. Potassium replacement ordered Potassium normal at 4.1 Obstructive sleep apnea Uses BiPAP as outpt. Has chronic CO2 retention. Resume BiPAP per home settings. Rheumatoid arthritis Continue on BUSINESS MANAGEMENT CONSULTANT on prednisone 10 mg daily. Chronic Anemia likely secondary to chronic disease. Baseline hemoglobin 9-10 range. Hemoglobin at around previous baseline. Incidental renal stones. CT - No hydronephrosis. Nonobstructive right renal pelvic stones including 13 mm right UPJ calculus. Recommend follow-up with urology as outpatient if symptomatic. Diabetes mellitus with a hemoglobin A1c of 6.6. BUSINESS MANAGEMENT CONSULTANT not on meds. Monitor blood sugars , if elevated will consider sliding scale insulin. Diet :Combination Diet Regular Diet Adult Snacks/Supplements Adult: Ensure Max Protein (bariatric); Between Meals Snacks/Supplements Adult: Expedite Bottle; With Meals DVT Prophylaxis: Pneumatic Compression Devices Code Status: No CPR- Do NOT Intubate 51 MINUTES SPENT BY ME on the date of service doing chart review, history, exam, documentation & further activities per the note. Medically Ready for Discharge: Anticipated in 2-4 Days Diet: Combination Diet Regular Diet Adult Snacks/Supplements Adult: Expedite Bottle; With Meals Snacks/Supplements Adult: Ensure Max Protein (bariatric); Between Meals Diet DVT Prophylaxis: Pneumatic Compression Devices Cristobal Catheter: PRESENT, indication: Acute retention or obstruction Lines: None Cardiac Monitoring: None Code Status: No CPR- Do NOT Intubate Clinically Significant Risk Factors # Hypoalbuminemia: Lowest albumin = 3.2 g/dL at 05/10/2024 2:44 PM, will monitor as appropriate # DMII: A1C = 6.6 % (Ref range: <5.7 %) within past 6 months # Obesity: Estimated body mass index is 30.27 kg/m?? as calculated from the following: Height as of this encounter: 1.524 m (5'). Weight as of this encounter: 70.3 kg (154 lb 15.7 oz). # Financial/Environmental Concerns: none Disposition Plan Medically Ready for Discharge: Anticipated in 2-4 Days surgical re-consult Anna Fajardo MD Hospitalist Service [facility] Securely message with [facility] (more info) Text page via [facility] Paging/Directory Interval History Was going to d/c patient, RN noted that there is feces coming from paracoccyxeal wound . Discussed with patient and niece, patient would like to re consider diverting colectomy with surgery before back home Physical Exam Vital Signs: Temp: 98.1 ??F (36.7 ??C) Temp src: Oral BP: (!) 143/59 Pulse: 91 Resp: 20 SpO2: 97 % O2 Device: None (Room air) Weight: 154 lbs 15.73 oz Constitutional:Awake, alert, cooperative, no apparent distress Respiratory: Clear to auscultation bilaterally, no crackles or wheezing Cardiovascular: Regular rate and rhythm, normal S1 and S2, and no murmur noted distant due to body habitus GI: Normal bowel sounds, soft, non-distended, non-tender soft brown incontinent stool near anus. Also, feces observed from wound at about 2 oclock relative to anus Skin/Integumen: Extensive decubitus ulcers present per WOC and providers notes. Unable to inspect today Neuro : moving all 4 extremities, contractures noted lower extremity Medical Decision Making 55 MINUTES SPENT BY ME on the date of service doing chart review, history, exam, documentation & further activities per the note. Data I have personally reviewed the following data over the past 24 hrs: N/A \ N/A / 255 N/A N/A N/A / N/A N/A N/A N/A \ Imaging results reviewed over the past 24 hrs: No results found for this or any previous visit (from the past 24 hour(s)). * Santy Coates RN - 05/14/2024 6:43 PM CDT [id number] Orientation: AOx4 Aggression Stop Light: green Activity: A2 Diet/BS Checks: REGULAR Tele: NA IV Access/Drains: PIV SL Pain Management: PRN OXYCODONE X2 Abnormal VS/Results: vss on RA Bowel/Bladder: incont, had bm during shift. cristobal Skin/Wounds: stage 4 pressure injury. Dressing changes done. Consults: WOC, PT, OT, ID, PAIN TEAM D/C Disposition: PENDING Other Info: denies nausea. Contact for MRSA. Cdiff rule out, stool sample collected. Tales pills whole and one at a time. * Anna Fajardo MD - 05/14/2024 3:58 PM CDT [facility] Medicine Progress Note - Hospitalist Service Date of Admission: 05/10/2024 Assessment & Plan Prerna Major is a 78 year old female with medical history of history of transverse myelitis, paraplegia, neurogenic bladder with chronic indwelling Cristobal catheter, decubitus ulcers with chronic osteomyelitis, RA on chronic prednisone therapy, HUI, HFpEF, atrial fibrillation, hypertension, gastric ulcer presented to the ED with weakness. --Admitted [facility] on 03/06 -03/14/2024 for septic shock secondary to E. coli UTI with bacteremia, stage IV right ischial tuberosity decubitus ulcer. --Readmitted at [facility] on 03/21/[address] showed a sacral decubitus ulcer extending to the sacrum, right deep gluteal soft tissue tunneling and lower gluteal/upper thigh ulceration extending to the ischial tuberosity with evidence of chronic osteomyelitis. General surgery, infectious disease followed and recommended transfer to tertiary center. ---Was admitted at [facility] 03/24 to 03/31/2024. General surgery, infectious disease, wound care closely followed, impression chronic osteomyelitis. Echocardiogram negative for endocarditis.Cultures from outside hospital positive for Alice albicans. Was treated with IV antifungals, switch to oral fluconazole on discharge, completed course on 04/07/2024 for total of 14 days. Sepsis likely from infected decubitus ulcer, urinary source. Acute osteomyelitis involving the coccyx Chronic osteomyelitis involving the right ischium. Chronic decubitus ulcer. History of MRSA infection. --Presenting with abdominal discomfort all over the abdomen associated cramping. Reports associatednausea, no vomiting. Max of 101, associated headache and generalized weakness with poor intake. Reports home health nurse has been following for wound care, cultures positive for bacterial infection and was started on oral amoxicillin and metronidazole 3 days prior. --05/10/24 CT abdomen/pelvis = multiple decubitus ulcers, suspicious for acute osteomyelitis involving the coccyx, and chronic osteomyelitis involving the right ischium. No drainable fluid collections. --on Admission WBC 15.6, lactic acid 1.1, lipase level 11. Hemoglobin 10.3. Sodium 140, potassium 3.3, creatinine 0.26. Liver enzymes within normal limits. Influenza A, B, RSV, COVID-19 PCR negative. --CT chest No acute infiltrates Following admission clinical pharmacist in ED reviewed chart, noted multiple allergies. She was started on IV linezolid IV Flagyl and IV ceftriaxone, recommend linezolid with Flagyl. As per ID on 05/11 Discontinued Linezolid Treat with Ceftriaxone, Daptomycin and oral Metronidazole. >> as of 05/13/24, changed to augmentin and doxy, intent is to treat with this regimen for another week (through 05/20/24) General surgery consult requested. As per surgery team wounds look okay no need for debridement. General surgery team is recommending diverting colostomy. Patient has declined, surgery has signed off Wound care following, pulsatile mattress in place, blood cultures remain negative so far, continue wound care. Urinary tract infection-catheter related. Neurogenic bladder with chronic indwelling Cristobal catheter Has chronic indwelling Cristobal catheter, reports last catheter last changed 2 weeks back. Catheter changed in ED. Now draining clear concentrated urine. --UA large leukocyte esterase, 123 WBCs, few bacteria and WBC clumps present. -- ID following, currently the augmentin will cover most UTI. Unfortunately urine culture was not sent on admission. Urine culture sent on 05/12/2024. Might not be reliable as patient already received antibiotics since admission. Anal wall thickening with large rectal fecal burden on imaging Chronic constipation. Reports has chronic constipation, bowel movement once in 3 to 4 days. Last bowel movement this morning, reports well-formed without blood or melena. -- Prior to admission on narcotics, patient reluctant for bowel meds as reports difficulty with wound care for decubitus ulcer. --CT abdomen and pelvis with no small bowel obstruction. Large rectal fecal burden. Anal wall thickening is likely related to chronic inflammation. -- Scheduled bowel meds. As needed bowel meds, suppository ordered. Minimize narcotic use. --Radiologist recommended follow-up advised to exclude underlying lesions -given anal wall thickening. Discussed with patient and family, age-appropriate health maintenance, follow-up imaging as outpatient. Physical deconditioning from medical illness, chronic debility. Transverse myelitis with paraplegia. Lives at home with her daughter, has home care. Reports mostly bedbound, uses motorized wheelchair as needed. Now reporting generalized weakness. --Address medical issues as discussed above. Fall precautions. PT, OT evaluation Chronic pain on narcotics. Continue BUSINESS MANAGEMENT CONSULTANT Tylenol. Continue BUSINESS MANAGEMENT CONSULTANT gabapentin. Continue BUSINESS MANAGEMENT CONSULTANT as needed oxycodone, minimize use as able to. Patient with acute on chronic pain issues due to decubitus ulcers. Pain medicine team consultation requested regarding management of pain issues Discharge Recommendations Per PAIN Consult- We recommend prescribing the following at the time of discharge: TBD for opioid management gabapentin 400 mg tid Naproxen sodium, acetaminophen as over the counter Oxycodone 10 mg every 4 hrs prn limit 30 mg per day Topicals lidocaine patch and lidocaine uroget gel Constipation: Dulcolax suppository ordered on 05/12 Sinus tachycardia likely from sepsis resolved Moderate atherosclerotic disease. Chronic heart failure with preserved EF [last EF greater than 75% from 01/14/2023] Atrial fibrillation not on anticoagulation. Hypertension --Denies any chest pain or palpitations or shortness of breath at this time.Clear lungs. --EKG sinus tachycardia, heart rate 103, QTc 445. --CT chest with linear atelectasis, effusions, or pneumothorax. Moderate atherosclerotic disease. BUSINESS MANAGEMENT CONSULTANT Lasix held on admission. Restarted on 05/12/2024 Continue BUSINESS MANAGEMENT CONSULTANT Toprol, switch to immediate release 25 mg twice daily with hold parameters. ---- BUSINESS MANAGEMENT CONSULTANT not on aspirin or statin. Defer further cardiac workup to outpatient. Telemetry monitoring. Intake output monitoring, daily weights. Hypokalemia. Potassium replacement ordered Potassium normal at 4.1 Obstructive sleep apnea Uses BiPAP as outpt. Has chronic CO2 retention. Resume BiPAP per home settings. Rheumatoid arthritis Continue on BUSINESS MANAGEMENT CONSULTANT on prednisone 10 mg daily. Chronic Anemia likely secondary to chronic disease. Baseline hemoglobin 9-10 range. Hemoglobin at around previous baseline. Incidental renal stones. CT - No hydronephrosis. Nonobstructive right renal pelvic stones including 13 mm right UPJ calculus. Recommend follow-up with urology as outpatient if symptomatic. Diabetes mellitus with a hemoglobin A1c of 6.6. BUSINESS MANAGEMENT CONSULTANT not on meds. Monitor blood sugars , if elevated will consider sliding scale insulin. Diet :Combination Diet Regular Diet Adult Snacks/Supplements Adult: Ensure Max Protein (bariatric); Between Meals Snacks/Supplements Adult: Expedite Bottle; With Meals DVT Prophylaxis: Pneumatic Compression Devices Code Status: No CPR- Do NOT Intubate 51 MINUTES SPENT BY ME on the date of service doing chart review, history, exam, documentation & further activities per the note. Medically Ready for Discharge: Anticipated in 2-4 Days Diet: Combination Diet Regular Diet Adult Snacks/Supplements Adult: Expedite Bottle; With Meals Snacks/Supplements Adult: Ensure Max Protein (bariatric); Between Meals DVT Prophylaxis: Pneumatic Compression Devices Cristobal Catheter: PRESENT, indication: Acute retention or obstruction Lines: None Cardiac Monitoring: None Code Status: No CPR- Do NOT Intubate Clinically Significant Risk Factors # Hypoalbuminemia: Lowest albumin = 3.2 g/dL at 05/10/2024 2:44 PM, will monitor as appropriate # DMII: A1C = 6.6 % (Ref range: <5.7 %) within past 6 months, PRESENT ON ADMISSION # Obesity: Estimated body mass index is 30.4 kg/m?? as calculated from the following: Height as of this encounter: 1.524 m (5'). Weight as of this encounter: 70.6 kg (155 lb 10.3 oz)., PRESENT ON ADMISSION # Financial/Environmental Concerns: none Disposition Plan Medically Ready for Discharge: Anticipated Tomorrow ruling out cdiff ensure adequate pain control Anna Fajardo MD Hospitalist Service [facility] Securely message with [facility] (more info) Text page via [employer] Paging/Directory Interval History Pain control improving. Complains of very loose stools with all intake. Physical Exam Vital Signs: Temp: 98.3 ??F (36.8 ??C) Temp src: Oral BP: (!) 142/67 Pulse: 87 Resp: 18 SpO2: 96 % O2 Device: None (Room air) Weight: 155 lbs 10.32 oz Constitutional:Awake, alert, cooperative, no apparent distress Respiratory: Clear to auscultation bilaterally, no crackles or wheezing Cardiovascular: Regular rate and rhythm, normal S1 and S2, and no murmur noted distant due to body habitus GI: Normal bowel sounds, soft, non-distended, non-tender Skin/Integumen: Extensive decubitus ulcers present per WOC and providers notes. Unable to inspect today Neuro : moving all 4 extremities, contractures noted lower extremity Medical Decision Making 55 MINUTES SPENT BY ME on the date of service doing chart review, history, exam, documentation & further activities per the note. Data Imaging results reviewed over the past 24 hrs: No results found for this or any previous visit (from the past 24 hour(s)). * Julissa Gandhi RD, LD - 05/14/2024 8:38 AM CDT CLINICAL NUTRITION SERVICES - REASSESSMENT NOTE Future/Additional Recommendations: Regular diet Lunch: Expedite (wound healing supplement, 10 gm pro) 10am: Ensure MAX (30 gm pro supplement) Continue supplements and encourage good po intake for healing Malnutrition: (05/11) Patient does not meet two of the above criteria necessary for diagnosing malnutrition EVALUATION OF PROGRESS TOWARD GOALS Diet: Regular Lunch: Expedite (wound healing supplement) 2pm: Ensure MAX (30 gm pro supplement) Intake/Tolerance: Chart reviewed Daily multivitamin w/minerals, 250 mg Vit C, 220 mg zinc sulfate On average, meals providing ~2000 cals/day, ~70 gm pro/day Supplements providing ~250 cals/day and ~40 gm pro/day Visited with pt this morning Tells me that her appetite is good and she is eating at least 75% of her meals Taking the Expedite with lunch - likes the Ensure, but would prefer to have it in the morning ASSESSED NUTRITION NEEDS: Dosing Weight 59.6 kg (admit 05/10) Estimated Energy Needs: 0920-9248 kcals (25-30 Kcal/Kg) Justification: maintenance, wound healing Estimated Protein Needs: 78-89 grams protein (1.3-1.5 g pro/Kg) Justification: wound healing Estimated Fluid Needs: 3302-9963 mL (1 mL/Kcal) Justification: maintenance NEW FINDINGS: 05/11: WOCN Consulted for: Wound acute on chronic osteomyelitis Summary: patient with POA wounds to buttock x3, Stage 4 BM x4 past 24 hrs (Dulcoax supp given 05/12, miralax/senokot held) 05/10: Culturell started Wt is up 24# from admit (??) - wt appears to fluctuate per records 05/14/24 06 70.6 kg (155 lb 10.3 oz) Bed scale 05/10/242051 59.6 kg (131 lb 6.3 oz) -- Wt Readings from Last 10 Encounters: 05/10/24 : 59.6 kg (131 lb 6.3 oz) 03/14/24 : 65.3 kg (143 lb 15.4 oz) 12/12/13 : 64.9 kg (143 lb) 03/30/24 : 64.4 kg (141 lb) 03/09/24 : 62.9 kg (138 lb) Previous Goals (05/11): PO - >75% meal trays BID and 100% nutrition supplements BID Evaluation: Met Previous Nutrition Diagnosis (05/11): Inadequate protein intake related to increased needs (protein) for wound healing as evidenced by active wounds, need for >1.3 g/kg/day protein and oral nutrition supplements to help pt meet protein needs Evaluation: No change, modified below CURRENT NUTRITION DIAGNOSIS Increased nutrient needs (protein) related to higher demand for healing as evidenced by pt with noted stage 4 wounds INTERVENTIONS Recommendations / Nutrition Prescription Regular diet Lunch: Expedite (wound healing supplement, 10 gm pro) 10am: Ensure MAX (30 gm pro supplement) Continue supplements and encourage good po intake for healing Goals Pt to consume 75% meals and 100% wound healing supplements MONITORING AND EVALUATION: Progress towards goals will be monitored and evaluated per protocol and Practice Guidelines * Samm Islas RT - 05/13/2024 10:56 PM CDT Pt stated she is feeling nauseated at this time. Home CPAP on standby. RT will reassess pt later. Samm Islas RRT * Yaritza Hurtado MD - 05/13/2024 4:53 PM CDT Patient's daughter discussed with [facility] nurse and answered question. Patient would like to avoid any loop colostomy at this time. Agree with current wound management care. No surgical intervention needed. Will sign off. Please free free to contact again with any further questions or concerns. Yaritza Hurtado MD FACS Trauma/Emergency/Critical Care Surgery * Leela Degroot, AMIRAH EMERGENCY SERVICES PROFESSIONAL - 05/13/2024 3:46 PM CDT Images from the original note were not included. [facility] ACUTE PAIN SERVICE [facility] Daily PAIN Progress Note Securely message with the [employer] Console (learn more here) (When I saw the patient): 05/13/24 Assessment/Plan: Prerna Major Is a 78 year old female admitted on 05/10/24 for sepsis and osteomyelitis related to chronic decubitus stage 4 wounds of right buttocks a d hip and sacrum. I am seeing in follow up for pain management of these wounds We increased the oxycodone range increased multimodals and added lidocaine patch to around wounds and uroget gel to wound bed. Patient has found this helpful. Opioid Induced Respiratory Depression Risk: Moderate CrCl 115.2 mL/min (A) (based on SCr of 0.33 mg/dL (L)). MNPMP pulled from system on 05/12/24. No controlled substance in the past 12 months, but patient stated receives from her PcP Prerna Major has used the following opioids in the this past 24 hours in the form of oral oxycodone 10 mg (3), IV 0 mg. =44.5 m MME Prerna Major Has used in the past 24 hours adjuvants of gabapentin 400 mg (2) naproxen 250 mg (3) acetaminophen (Tylenol) 650 mg (2) . MNPMP pulled from system on 05/12/24. No controlled substance in the past 12 months, but patient stated receives from her PcP PLAN: 1) Pain is consistent with musculoskeletal, secondary to sepsis of probable osteomyelitis sacral and hip area, in the setting of multiple comorbid conditions. 2)Multimodal Medication Therapy Topical: lidocaine uroget with decuitus care and q4 hrs prn, Lidocaine patch 4%, and Diclofenac gelApply to areas surrounding decubiti. Adjuvants:Tylenol 650 mg every 6 hrs Gapapentin 400 mg tid, naproxen 250 mg w/food tid Could consider compound topical but may be cost prohibitive at discharge Antidepressants/anxiolytics: none Opioids:Oxycodone 7.5-10 mg Q4 prn IV Pain medication: not indicated 3) Non-medication interventions- Ice, Heat, physical therapy, distraction aroma therapy. Wound management 4) Interdisciplinary team care infectious disease, wound care, care coordination 5)Constipation Prophylaxis- senna and miralax. Continue to monitor. 6) Follow up -acute pain team will sign off -Opioid prescriber has been Pcp. PCP is Flo Mckeon. -Discharge Recommendations - We recommend prescribing the following at the time of discharge: TBD for opioid management gabapentin 400 mg tid Naproxen sodium, acetaminophen as over the counter Oxycodone 10 mg every 4 hrs prn limit 30 mg per day Topicals lidocaine patch and lidocaine uroget gel Disposition: Prior living arrangement with home care Prescribing at discharge: Hospitalist Subjective: Pain better controlled wounds painful w/dressing changes, but better with topicals Pain 7/10 Multiple BM's <principal problem not specified> Patient Active Problem List Diagnosis UTI (urinary tract infection) SOB (shortness of breath) Pyelonephritis Paraplegia (H) Elevated lactic acid level Fever in adult Septic shock (H) Urinary tract infection without hematuria, site unspecified Pressure injury of skin, unspecified injury stage, unspecified location Acute cystitis with hematuria Osteomyelitis of coccyx (H) History Drug Use Not on file Tobacco Use Smoking status: None Smokeless tobacco: None Current Facility-Administered Medications Medication Dose Route Frequency Provider Last Rate Last Admin acetaminophen (TYLENOL) tablet 650 mg 650 mg Oral Q6H Leela Degroot APRN EMERGENCY SERVICES PROFESSIONAL 650 mg at 05/13/24 0952 amoxicillin-clavulanate (AUGMENTIN) 875-125 MG per tablet 1 tablet 1 tablet Oral Q12H ESTELA (06/01) Adeline Varela MD diclofenac (VOLTAREN) 1 % topical gel 4 g 4 g Topical TID Leela Degroot APRN EMERGENCY SERVICES PROFESSIONAL 4 g at 05/13/24 1005 doxycycline hyclate (VIBRAMYCIN) capsule 100 mg 100 mg Oral Q12H ESTELA (06/01) Adeline Varela MD furosemide (LASIX) tablet 40 mg 40 mg Oral Daily Noemí Bhat MD 40 mg at 05/13/24 0953 gabapentin (NEURONTIN) capsule 400 mg 400 mg Oral TID Leela Degroot APRN EMERGENCY SERVICES PROFESSIONAL 400 mg at 05/13/24 0953 heparin ANTICOAGULANT injection 5,000 Units 5,000 Units Subcutaneous Q8H Ambar Joseph MD 5,000 Units at 05/13/24 1405 lactobacillus rhamnosus (GG) (CULTURELL) capsule 1 capsule 1 capsule Oral Daily Ambar Joseph MD 1 capsule at 05/13/24 0953 Lidocaine (LIDOCARE) 4 % Patch 3 patch 3 patch Transdermal Q24h Leela Degroot APRN EMERGENCY SERVICES PROFESSIONAL 3 patch at 05/12/24 2212 metoprolol tartrate (LOPRESSOR) tablet 25 mg 25 mg Oral BID Ambar Joseph MD 25 mg at 954 multivitamin w/minerals (THERA-VIT-M) tablet 1 tablet 1 tablet Oral Daily Noemí Bhat MD 1 tablet at 05/13/24 0951 naproxen (NAPROSYN) tablet 250 mg 250 mg Oral TID w/meals Leela Degroot APRN EMERGENCY SERVICES PROFESSIONAL 250 mg at 05/13/24 1536 polyethylene glycol (MIRALAX) Packet 17 g 17 g Oral Daily Noemí Bhat MD potassium chloride (KLOR-CON) Packet 40 mEq 40 mEq Oral Once Ambar Joseph MD predniSONE (DELTASONE) tablet 10 mg 10 mg Oral or NG Tube Daily Ambar Joseph MD 10 mg at 05/13/24 0951 senna-docusate (SENOKOT-S/PERICOLACE) 8.6-50 MG per tablet 2 tablet 2 tablet Oral or NG Tube BID Ambar Joseph MD sodium chloride (PF) 0.9% PF flush 3 mL 3 mL Intracatheter Q8H Ambar Joseph MD 3 mL at 05/13/24 0635 sodium chloride (PF) 0.9% PF flush 3 mL 3 mL Intracatheter Q8H Ambar Joseph MD 3 mL at 05/13/24 0426 sodium hypochlorite (DAKINS half-strength) external solution Irrigation BID Ambar Joseph MD Given at 05/13/24 1000 vitamin C (ASCORBIC ACID) tablet 250 mg 250 mg Oral Daily Ambar Joseph MD 250 mg at 05/13/24 0954 zinc sulfate (ZINCATE) capsule 220 mg 220 mg Oral or NG Tube QPM Ambar Joseph MD 220 mg at 05/12/24 2130 Objective: Vital signs in last 24 hours: B/P: 128/62, T: 98.1, P: 84, R: 18 Blood pressure 128/62, pulse 84, temperature 98.1 ??F (36.7 ??C), temperature source Axillary, resp. rate 18, height 1.524 m (5'), weight 59.6 kg (131 lb 6.3 oz), SpO2 97%. Weight: Wt Readings from Last 3 Encounters: 05/10/24 59.6 kg (131 lb 6.3 oz) 03/14/24 65.3 kg (143 lb 15.4 oz) 12/12/13 64.9 kg (143 lb) Intake/Output: Intake/Output Summary (Last 24 hours) at 05/13/2024 1547 Last data filed at 05/13/2024 0641 Gross per 24 hour Intake -- Output 300 ml Net -300 ml Review of Systems: As per subjective, all others negative. Physical Exam: General Appearance: Alert, cooperative, no distress. Patient is pleasant cheerful grooming is good Head: Normocephalic, without obvious abnormality, atraumatic Eyes: Conjunctiva/corneas clear, EOM's intact ENT/Throat: Lips, mouth moist Lymph/Neck: Symmetrical, trachea midline. Lungs: Clear to auscultation bilaterally, respirations unlabored, even chest rise. Symmetrical movement Cardiovascular/Heart: Regular rate and rhythm. No edema Abdomen: Soft, non-tender, bowel sounds active all four quadrants, no masses, no organomegaly Musculoskeletal: Extremities normal, atraumatic Incision none Skin: Skin color good Neurologic: Alert and oriented X 3, Moves all 4 extremities Psych: Affect is cheerful aberrant pain behaviors, No Imaging: Personally Reviewed. Results for orders placed or performed during the hospital encounter of 05/10/24 CT Chest/Abdomen/Pelvis w Contrast Impression IMPRESSION: 1. Multiple decubitus ulcers, with CT findings suspicious for acute osteomyelitis involving the coccyx, and chronic osteomyelitis involving the right ischium. No drainable fluid collections. 2. Cristobal catheter within the vagina. 3. Nonobstructing right renal pelvis stones, including 13 mm right UPJ calculus. 4. Anal wall thickening is likely related to chronic inflammation. Follow-up advised to exclude underlying lesions. Tube/Catheter positioning was called to [place] PA-C by Dr. Rai Lock on 05/10/2024 5:18 PM CDT. Lab Results: Personally Reviewed. Last Comprehensive Metabolic Panel: Sodium Date Value Ref Range Status 05/13/2024 140 135 - 145 mmol/L Final 12/14/2013 137 133 - 144 mmol/L Final Potassium Date Value Ref Range Status 05/13/2024 4.1 3.4 - 5.3 mmol/L Final 12/14/2013 4.2 3.4 - 5.3 mmol/L Final Chloride Date Value Ref Range Status 05/13/2024 107 98 - 107 mmol/L Final 12/14/2013 96 94 - 109 mmol/L Final Carbon Dioxide Date Value Ref Range Status 12/14/2013 40 (H) 20 - 32 mmol/L Final Carbon Dioxide (CO2) Date Value Ref Range Status 05/13/2024 27 22 - 29 mmol/L Final Anion Gap Date Value Ref Range Status 05/13/2024 6 (L) 7 - 15 mmol/L Final 12/14/2013 1 (L) 6 - 17 mmol/L Final Glucose Date Value Ref Range Status 05/13/2024 94 70 - 99 mg/dL Final 12/14/2013 95 60 - 99 mg/dL Final GLUCOSE BY METER POCT Date Value Ref Range Status 03/09/2024 171 (H) 70 - 99 mg/dL Final Urea Nitrogen Date Value Ref Range Status 05/13/2024 20.0 8.0 - 23.0 mg/dL Final 12/14/2013 27 7 - 30 mg/dL Final Creatinine Date Value Ref Range Status 05/13/2024 0.33 (L) 0.51 - 0.95 mg/dL Final 12/14/2013 0.37 (L) 0.52 - 1.04 mg/dL Final GFR Estimate Date Value Ref Range Status 05/13/2024 >90 >60 mL/min/1.73m2 Final Comment: eGFR calculated using 2020 CKD-EPI equation. 12/14/2013 >90 >60 mL/min/1.7m2 Final Calcium Date Value Ref Range Status 05/13/2024 8.7 (L) 8.8 - 10.4 mg/dL Final Comment: Reference intervals for this test were updated on 04/27/2024 to reflect our healthy population more accurately. There may be differences in the flagging of prior results with similar values performed with this method. Those prior results can be interpreted in the context of the updated reference intervals. 12/14/2013 7.4 (L) 8.5 - 10.4 mg/dL Final UA: No results found for: UAMP, UBARB, BENZODIAZEUR, UCANN, UCOC, OPIT, UPCP Critical decision making elements: Use of high risk medications: Yes, Ongoing monitoring for adverse effects of medications by me: Yes, Relevant labs, imaging, notes reviewed by me: Yes Please see A&P for additional details of medical decision making. Medical complexity over the past 24 hours: - no medication changes 20 MINUTES SPENT BY ME on the date of service doing chart review, history, exam, documentation & further activities per the note. Communicated plan with hospitalist managing care? Yes Communicated plan with bedside nurse? Yes Communicated plan with patient ? Yes Leela Degroot APRN CNP, PGMT-BC, [facility] Coverage Friday-Friday 8:00-4:30 No weekend coverage contact fish house worker Securely message with the [employer] (learn more here) * Jenn Jnuior RN - 05/13/2024 2:59 PM CDT VAT consult placed for IV placement. Patient declined IV at this time. RN caring for patient was updated. * Adeline Varela MD - 05/13/2024 1:44 PM CDT Images from the original note were not included. [facility] Infectious Disease Progress Note Date of Service : 05/13/2024 Assessment: 78 YF with transverse myelitis, paraplegia, neurogenic bladder with chronic indwelling Cristobal catheter, chronic decubitus ulcers with chronic osteomyelitis and hospitalization in February for sepsis, RA onchronic prednisone therapy among other medical conditions, who has been hospitalized with weakness and concern for sepsis related to infected decubitus ulcers . Wounds appear stable without active infection though there is concern for acute on chronic osteomyelitis of the coccyx -Sepsis related to infected decubitus ulcers -Acute osteomyelitis of the coccyx -Recent history of alice albicans blood stream infection 03/21/2024 related to fungal urinary tract infection -Chronic osteomyelitis of the right ischium -Hx of E.coli and lactobacillus bacteremia with septic shock requiring hospitalization at [facility]02/2024 -Chronic medical conditions -HUI, HFpEF, atrial fibrillation, hypertension, gastric ulcer Recommendations Discontinue IV Meropenem, Daptomycin and Metronidazole Treat with Augmentin and Doxycyline for another week Local Wound care Decubitus ulcers have been chronic or > 20 years and are unlikely to heal. Though there may be some acute on chronic osteomyelitis, pt is unlikely to benefit from a prolonged course of IV antibiotics without wound closure or debridement. Currently no cellulitis, drainage or odor Could consider out patient plastic surgery consultation for further evaluation ID will sign off, please call us back as needed Adeline Varela MD Interval History Resting, no new complaints Wounds were examined, no erythema, drainage or odor noted, some exposed bone Physical Exam Temp: 98.1 ??F (36.7 ??C) Temp src: Axillary BP: 128/62 Pulse: 84 Resp: 18 SpO2: 97 % O2 Device: None (Room air) Vitals: 05/10/242051 Weight: 59.6 kg (131 lb 6.3 oz) Vital Signs with Ranges Temp: [97.9 ??F (36.6 ??C)-99 ??F (37.2 ??C)] 98.1 ??F (36.7 ??C) Pulse: [79-94] 84 Resp: [16-18] 18 BP: (101-128)/(47-62) 128/62 SpO2: [93 %-97 %] 97 % GENERAL APPEARANCE: awake EYES: Eyes grossly normal to inspection RESP: lungs clear MS : muscle atrophy and contractures Other: Medications Current Facility-Administered Medications Medication Dose Route Frequency Provider Last Rate Last Admin Current Facility-Administered Medications Medication Dose Route Frequency Provider Last Rate Last Admin acetaminophen (TYLENOL) tablet 650 mg 650 mg Oral Q6H Leela Degroot APRN EMERGENCY SERVICES PROFESSIONAL 650 mg at 05/13/24 0952 cefTRIAXone (ROCEPHIN) 2 g vial to attach to NS 100 ml bag for ADULTS or NS 50 ml bag for PEDS 2 g Intravenous Q24H Noemí Bhat MD DAPTOmycin (CUBICIN) 350 mg in sodium chloride 0.9 % 100 mL intermittent infusion 6 mg/kg Intravenous Q24H Adeline Varela MD 190 mL/hr at 05/12/24 0955 350 mg at 05/13/24 1026 diclofenac (VOLTAREN) 1 % topical gel 4 g 4 g Topical TID Leela Degroot APRN EMERGENCY SERVICES PROFESSIONAL 4 g at 05/13/24 1005 furosemide (LASIX) tablet 40 mg 40 mg Oral Daily Noemí Bhat MD 40 mg at 05/13/24 0953 gabapentin (NEURONTIN) capsule 400 mg 400 mg Oral TID Leela Degroot APRN EMERGENCY SERVICES PROFESSIONAL 400 mg at 05/13/24 0953 heparin ANTICOAGULANT injection 5,000 Units 5,000 Units Subcutaneous Q8H Ambar Joseph MD 5,000 Units at 05/13/24 0633 lactobacillus rhamnosus (GG) (CULTURELL) capsule 1 capsule 1 capsule Oral Daily Ambar Joseph MD 1 capsule at 05/13/24 0953 Lidocaine (LIDOCARE) 4 % Patch 3 patch 3 patch Transdermal Q24h Leela Degroot APRN EMERGENCY SERVICES PROFESSIONAL 3 patch at 05/12/24 2212 metoprolol tartrate (LOPRESSOR) tablet 25 mg 25 mg Oral BID Ambar Joseph MD 25 mg at 954 metroNIDAZOLE (FLAGYL) tablet 500 mg 500 mg Oral BID Adeline Varela MD 500 mg at 05/13/24 0949 multivitamin w/minerals (THERA-VIT-M) tablet 1 tablet 1 tablet Oral Daily Noemí Bhat MD 1 tablet at 05/13/24 0951 naproxen (NAPROSYN) tablet 250 mg 250 mg Oral TID w/meals Leela Degroot, AMIRAH EMERGENCY SERVICES PROFESSIONAL 250 mg at 05/13/24 0954 polyethylene glycol (MIRALAX) Packet 17 g 17 g Oral Daily Noemí Bhat MD potassium chloride (KLOR-CON) Packet 40 mEq 40 mEq Oral Once Ambar Joseph MD predniSONE (DELTASONE) tablet 10 mg 10 mg Oral or NG Tube Daily Ambar Joseph MD 10 mg at 05/13/24 0951 senna-docusate (SENOKOT-S/PERICOLACE) 8.6-50 MG per tablet 2 tablet 2 tablet Oral or NG Tube BID Ambar Joseph MD sodium chloride (PF) 0.9% PF flush 3 mL 3 mL Intracatheter Q8H Ambar Joseph MD 3 mL at 05/13/24 0635 sodium chloride (PF) 0.9% PF flush 3 mL 3 mL Intracatheter Q8H Ambar Joseph MD 3 mL at 05/13/24 0426 sodium hypochlorite (DAKINS half-strength) external solution Irrigation BID Ambar Joseph MD Given at 05/13/24 1000 vitamin C (ASCORBIC ACID) tablet 250 mg 250 mg Oral Daily Ambar Joseph MD 250 mg at 05/13/24 0954 zinc sulfate (ZINCATE) capsule 220 mg 220 mg Oral or NG Tube QPM Ambar Joseph MD 220 mg at 05/12/24 2130 Data All microbiology laboratory data reviewed. Recent Labs Lab Test 05/13/24 0816 05/11/24 1055 05/10/24 1444 03/14/24 0602 WBC 10.0 13.4* 15.6* 15.5* HGB 9.6* -- 10.3* 10.4* HCT 33.0* -- 35.2 34.0* MCV 89 -- 86 88 PLT 283 -- 287 330 Recent Labs Lab Test 05/13/24 0816 05/11/24 1055 05/10/24 1444 CR 0.33* 0.29* 0.26* * Samantha Islas MD - 05/13/2024 1:03 PM CDT [facility] Hospitalist Progress Note Assessment & Plan Prerna Major is a 78 year old female with medical history of history of transverse myelitis, paraplegia, neurogenic bladder with chronic indwelling Cristobal catheter, decubitus ulcers with chronic osteomyelitis, RA on chronic prednisone therapy, HUI, HFpEF, atrial fibrillation, hypertension, gastric ulcer presented to the ED with weakness. --Admitted [facility] on 03/06 -03/14/2024 for septic shock secondary to E. coli UTI with bacteremia, stage IV right ischial tuberosity decubitus ulcer. --Readmitted at [facility] on 03/21/[address] showed a sacral decubitus ulcer extending to the sacrum, right deep gluteal soft tissue tunneling and lower gluteal/upper thigh ulceration extending to the ischial tuberosity with evidence of chronic osteomyelitis. General surgery, infectious disease followed and recommended transfer to tertiary center. ---Was admitted at [facility] 03/24 to 03/31/2024. General surgery, infectious disease, wound care closely followed, impression chronic osteomyelitis. Echocardiogram negative for endocarditis.Cultures from outside hospital positive for Alice albicans. Was treated with IV antifungals, switch to oral fluconazole on discharge, completed course on 04/07/2024 for total of 14 days. Sepsis likely from infected decubitus ulcer, urinary source. Acute osteomyelitis involving the coccyx Chronic osteomyelitis involving the right ischium. Chronic decubitus ulcer. History of MRSA infection. --Presenting with abdominal discomfort all over the abdomen associated cramping. Reports associatednausea, no vomiting. Max of 101, associated headache and generalized weakness with poor intake. Reports home health nurse has been following for wound care, cultures positive for bacterial infection and was started on oral amoxicillin and metronidazole 3 days prior. --on Admission WBC 15.6, lactic acid 1.1, lipase level 11. Hemoglobin 10.3. Sodium 140, potassium 3.3, creatinine 0.26. Liver enzymes within normal limits. Influenza A, B, RSV, COVID-19 PCR negative. --CT chest No acute infiltrates --CT abdomen and pelvis with multiple decubitus ulcers, with CT findings suspicious for acute osteomyelitis involving the coccyx, and chronic osteomyelitis involving the right ischium. No drainable fluid collections. Following admission clinical pharmacist in ED reviewed chart, noted multiple allergies. She was started on IV linezolid IV Flagyl and IV ceftriaxone, recommend linezolid with Flagyl. As per ID on 05/11 Discontinued Linezolid Treat with Ceftriaxone, Daptomycin and oral Metronidazole General surgery consult requested. As per surgery team wounds look okay no need for debridement. General surgery team is recommending diverting colostomy. Patient and family to decide about it going forward, currently they are requesting the wound care nurse to talk to the daughter, this has been conveyed to them, surgery is planning to do the procedure this admission if possible. Wound care following, pulsatile mattress in place, blood cultures remain negative so far, continue wound care. Urinary tract infection-catheter related. Neurogenic bladder with chronic indwelling Cristobal catheter Has chronic indwelling Cristobal catheter, reports last catheter last changed 2 weeks back. Catheter changed in ED. Now draining clear concentrated urine. --UA large leukocyte esterase, 123 WBCs, few bacteria and WBC clumps present. -- ID following, continue ceftriaxone. Unfortunately urine culture was not sent on admission. Urine culture sent on 05/12/2024. Might not be reliable as patient already received antibiotics since admission. Anal wall thickening with large rectal fecal burden on imaging Chronic constipation. Reports has chronic constipation, bowel movement once in 3 to 4 days. Last bowel movement this morning, reports well-formed without blood or melena. -- Prior to admission on narcotics, patient reluctant for bowel meds as reports difficulty with wound care for decubitus ulcer. --CT abdomen and pelvis with no small bowel obstruction. Large rectal fecal burden. Anal wall thickening is likely related to chronic inflammation. -- Scheduled bowel meds. As needed bowel meds, suppository ordered. Minimize narcotic use. --Radiologist recommended follow-up advised to exclude underlying lesions -given anal wall thickening. Discussed with patient and family, age-appropriate health maintenance, follow-up imaging as outpatient. Physical deconditioning from medical illness, chronic debility. Transverse myelitis with paraplegia. Chronic pain on narcotics. Lives at home with her daughter, has home care. Reports mostly bedbound, uses motorized wheelchair as needed. Now reporting generalized weakness. --Address medical issues as discussed above. Continue BUSINESS MANAGEMENT CONSULTANT Tylenol. Continue BUSINESS MANAGEMENT CONSULTANT gabapentin. Continue BUSINESS MANAGEMENT CONSULTANT as needed oxycodone, minimize use as able to. Fall precautions. PT, OT evaluation Patient with acute on chronic pain issues due to decubitus ulcers. Pain medicine team consultation requested regarding management of pain issues Constipation: Dulcolax suppository ordered on 05/12 Sinus tachycardia likely from sepsis resolved Moderate atherosclerotic disease. Chronic heart failure with preserved EF [last EF greater than 75% from 01/14/2023] Atrial fibrillation not on anticoagulation. Hypertension --Denies any chest pain or palpitations or shortness of breath at this time.Clear lungs. --EKG sinus tachycardia, heart rate 103, QTc 445. --CT chest with linear atelectasis, effusions, or pneumothorax. Moderate atherosclerotic disease. BUSINESS MANAGEMENT CONSULTANT Lasix held on admission. Restarted on 05/12/2024 Continue BUSINESS MANAGEMENT CONSULTANT Toprol, switch to immediate release 25 mg twice daily with hold parameters. ---- BUSINESS MANAGEMENT CONSULTANT not on aspirin or statin. Defer further cardiac workup to outpatient. Telemetry monitoring. Intake output monitoring, daily weights. Hypokalemia. Potassium replacement ordered , continue IV fluids normal saline with KCl. Potassium normal at 4.1 Obstructive sleep apnea Uses BiPAP as outpt. Has chronic CO2 retention. Resume BiPAP per home settings. Rheumatoid arthritis Continue on BUSINESS MANAGEMENT CONSULTANT on prednisone 10 mg daily. Chronic Anemia likely secondary to chronic disease. Baseline hemoglobin 9-10 range. Hemoglobin at around previous baseline. Incidental renal stones. CT - No hydronephrosis. Nonobstructive right renal pelvic stones including 13 mm right UPJ calculus. Recommend follow-up with urology as outpatient if symptomatic. Diabetes mellitus with a hemoglobin A1c of 6.6. Monitor blood sugars closely, if elevated will consider sliding scale insulin. BUSINESS MANAGEMENT CONSULTANT not on meds. Age-appropriate health maintenance as outpatient recommended. Diet :Combination Diet Regular Diet Adult Snacks/Supplements Adult: Ensure Max Protein (bariatric); Between Meals Snacks/Supplements Adult: Expedite Bottle; With Meals DVT Prophylaxis: Pneumatic Compression Devices Code Status: No CPR- Do NOT Intubate 51 MINUTES SPENT BY ME on the date of service doing chart review, history, exam, documentation & further activities per the note. Medically Ready for Discharge: Anticipated Tomorrow Clinically Significant Risk Factors # Hypoalbuminemia: Lowest albumin = 3.2 g/dL at 05/10/2024 2:44 PM, will monitor as appropriate # DMII: A1C = 6.6 % (Ref range: <5.7 %) within past 6 months, PRESENT ON ADMISSION # Overweight: Estimated body mass index is 25.66 kg/m?? as calculated from the following: Height as of this encounter: 1.524 m (5'). Weight as of this encounter: 59.6 kg (131 lb 6.3 oz)., PRESENT ON ADMISSION # Financial/Environmental Concerns: none Samantha Islas MD Text Page (7am to 6pm) Interval History Patient is still thinking about the need for colostomy, she is not open about it as of now, she would want to discuss it further with her daughter. Denies any other concerns, pain seems to be better controlled now -Data reviewed today: I reviewed all new labs and imaging results over the last 24 hours. Physical Exam Vital Signs with Ranges Temp: [97.9 ??F (36.6 ??C)-99 ??F (37.2 ??C)] 98.1 ??F (36.7 ??C) Pulse: [79-94] 84 Resp: [16-18] 18 BP: (101-128)/(47-62) 128/62 SpO2: [93 %-97 %] 97 % I/O last 3 completed shifts: In: - Out: 450 [Urine:450] Constitutional: Awake, alert, cooperative, no apparent distress Respiratory: Clear to auscultation bilaterally, no crackles or wheezing Cardiovascular: Regular rate and rhythm, normal S1 and S2, and no murmur noted GI: Normal bowel sounds, soft, non-distended, non-tender Skin/Integumen: Extensive decubitus ulcers present Neuro : moving all 4 extremities, contractures noted lower extremity Medications Current Facility-Administered Medications Medication Dose Route Frequency Provider Last Rate Last Admin Current Facility-Administered Medications Medication Dose Route Frequency Provider Last Rate Last Admin acetaminophen (TYLENOL) tablet 650 mg 650 mg Oral Q6H Leela Degroot APRN EMERGENCY SERVICES PROFESSIONAL 650 mg at 05/13/24 0952 cefTRIAXone (ROCEPHIN) 2 g vial to attach to NS 100 ml bag for ADULTS or NS 50 ml bag for PEDS 2 g Intravenous Q24H Noemí Bhat MD DAPTOmycin (CUBICIN) 350 mg in sodium chloride 0.9 % 100 mL intermittent infusion 6 mg/kg Intravenous Q24H Adeline Varela MD 190 mL/hr at 05/12/24 0955 350 mg at 05/13/24 1026 diclofenac (VOLTAREN) 1 % topical gel 4 g 4 g Topical TID Leela Degroot APRN EMERGENCY SERVICES PROFESSIONAL 4 g at 05/13/24 1005 furosemide (LASIX) tablet 40 mg 40 mg Oral Daily Noemí Bhat MD 40 mg at 05/13/24 0953 gabapentin (NEURONTIN) capsule 400 mg 400 mg Oral TID Leela Degroot APRN EMERGENCY SERVICES PROFESSIONAL 400 mg at 05/13/24 0953 heparin ANTICOAGULANT injection 5,000 Units 5,000 Units Subcutaneous Q8H Ambar Joseph MD 5,000 Units at 05/13/24 0633 lactobacillus rhamnosus (GG) (CULTURELL) capsule 1 capsule 1 capsule Oral Daily Ambar Joseph MD 1 capsule at 05/13/24 0953 Lidocaine (LIDOCARE) 4 % Patch 3 patch 3 patch Transdermal Q24h Leela Degroot APRN EMERGENCY SERVICES PROFESSIONAL 3 patch at 05/12/24 2212 metoprolol tartrate (LOPRESSOR) tablet 25 mg 25 mg Oral BID Ambar Joseph MD 25 mg at 954 metroNIDAZOLE (FLAGYL) tablet 500 mg 500 mg Oral BID Adeline Varela MD 500 mg at 05/13/24 0949 multivitamin w/minerals (THERA-VIT-M) tablet 1 tablet 1 tablet Oral Daily Noemí Bhat MD 1 tablet at 05/13/24 0951 naproxen (NAPROSYN) tablet 250 mg 250 mg Oral TID w/meals Leela Degroot APRN EMERGENCY SERVICES PROFESSIONAL 250 mg at 05/13/24 0954 polyethylene glycol (MIRALAX) Packet 17 g 17 g Oral Daily Noemí Bhat MD potassium chloride (KLOR-CON) Packet 40 mEq 40 mEq Oral Once Ambar Joseph MD predniSONE (DELTASONE) tablet 10 mg 10 mg Oral or NG Tube Daily Ambar Joseph MD 10 mg at 05/13/24 0951 senna-docusate (SENOKOT-S/PERICOLACE) 8.6-50 MG per tablet 2 tablet 2 tablet Oral or NG Tube BID Ambar Joseph MD sodium chloride (PF) 0.9% PF flush 3 mL 3 mL Intracatheter Q8H Ambar Joseph MD 3 mL at 05/13/24 0635 sodium chloride (PF) 0.9% PF flush 3 mL 3 mL Intracatheter Q8H Ambar Joseph MD 3 mL at 05/13/24 0426 sodium hypochlorite (DAKINS half-strength) external solution Irrigation BID Ambar Joseph MD Given at 05/13/24 1000 vitamin C (ASCORBIC ACID) tablet 250 mg 250 mg Oral Daily Ambar Joseph MD 250 mg at 05/13/24 0954 zinc sulfate (ZINCATE) capsule 220 mg 220 mg Oral or NG Tube QPM Ambar Joseph MD 220 mg at 05/12/24 2130 Data Recent Labs Lab 05/13/24 0805/11/24 1055 05/10/24 1444 WBC 10.0 13.4* 15.6* HGB 9.6* -- 10.3* MCV 89 -- 86 PLT 283 -- 287 NA 140 138 140 POTASSIUM 4.1 4.1 3.3* CHLORIDE 107 106 102 CO2 27 25 28 BUN 20.0 12.0 16.0 CR 0.33* 0.29* 0.26* ANIONGAP 6* 7 10 HOLLY 8.7* 8.4* 8.8 GLC 94 199* 93 ALBUMIN -- -- 3.2* PROTTOTAL -- -- 5.2* BILITOTAL -- -- 0.4 ALKPHOS -- -- 101 ALT -- -- 9 AST -- -- 17 LIPASE -- -- 11* Recent Labs Lab 05/13/2481505/11/24 1055 05/10/24 1444 GLC 94 199* 93 Imaging: No results found for this or any previous visit (from the past 24 hour(s)). * Yaritza Hurtado MD - 05/12/2024 6:43 PM CDT 05/12/2024 GENERAL SURGERY PROGRESS NOTE S: Discussed patient potential use of colostomy. Patient has no complaints today. O: BP 101/48 Pulse 79 Temp 99 ??F (37.2 ??C) (Oral) Resp 18 Ht 1.524 m (5') Wt 59.6 kg (131 lb 6.3 oz) SpO2 94% BMI 25.66 kg/m?? GEN:[facility] NEUR[facility]: awake, alert, responds to questions appropriately Abd: soft, nondistended Recent Labs Lab Test 05/11/24 1055 05/10/24 1444 03/14/24 0602 03/12/24 0603 WBC 13.4* 15.6* 15.5* 17.6* HGB -- 10.3* 10.4* 10.2* MCV -- 86 88 89 PLT -- 287 330 323 Recent Labs Lab Test 05/11/24 1055 05/10/24 1444 03/14/24 0602 POTASSIUM 4.1 3.3* 3.7 CHLORIDE 106 102 96* CO2 25 28 36* BUN 12.0 16.0 17.1 ANIONGAP 7 10 8 Recent Labs Lab Test 05/10/24 1642 05/10/24 1444 03/07/24 0431 03/06/24 1005 03/06/24 0254 ALBUMIN -- 3.2* 2.9* 2.7* -- BILITOTAL -- 0.4 0.2 0.4 -- ALT -- 9 62* 92* -- AST -- 17 45 129* -- PROTEIN 30* -- -- -- 100* LIPASE -- 11* -- -- -- A/P: 78 y/o F with decubitus ulcer. Discussed the option of a laparoscopic loop colostomy with the patient's daughter. Yaritza Hurtado MD [facility] General Surgery * Noemí Bhat MD - 05/12/2024 12:34 PM CDT [facility] Medicine Progress Note - Hospitalist Service Date of Admission: 05/10/2024 Assessment & Plan Prerna Major is a 78 year old female with medical history of history of transverse myelitis, paraplegia, neurogenic bladder with chronic indwelling Cristobal catheter, decubitus ulcers with chronic osteomyelitis, RA on chronic prednisone therapy, HUI, HFpEF, atrial fibrillation, hypertension, gastric ulcer presented to the ED with weakness. --Admitted [facility] on 03/06 -03/14/2024 for septic shock secondary to E. coli UTI with bacteremia, stage IV right ischial tuberosity decubitus ulcer. --Readmitted at [facility] on 03/21/[address] showed a sacral decubitus ulcer extending to the sacrum, right deep gluteal soft tissue tunneling and lower gluteal/upper thigh ulceration extending to the ischial tuberosity with evidence of chronic osteomyelitis. General surgery, infectious disease followed and recommended transfer to tertiary center. ---Was admitted at [facility] 03/24 to 03/31/2024. General surgery, infectious disease, wound care closely followed, impression chronic osteomyelitis. Echocardiogram negative for endocarditis.Cultures from outside hospital positive for Alice albicans. Was treated with IV antifungals, switch to oral fluconazole on discharge, completed course on 04/07/2024 for total of 14 days. Sepsis likely from infected decubitus ulcer, urinary source. Acute osteomyelitis involving the coccyx Chronic osteomyelitis involving the right ischium. Chronic decubitus ulcer. History of MRSA infection. --Presenting with abdominal discomfort all over the abdomen associated cramping. Reports associatednausea, no vomiting. Max of 101, associated headache and generalized weakness with poor intake. Reports home health nurse has been following for wound care, cultures positive for bacterial infection and was started on oral amoxicillin and metronidazole 3 days prior. --In ED at the time of evaluation temperature 100.4, blood pressure 133/52, heart rate 112 --Abdomen diffusely tender, no guarding or rigidity, bowel sounds heard. Moving all extremities. --WBC 15.6, lactic acid 1.1, lipase level 11. Hemoglobin 10.3. Sodium 140, potassium 3.3, creatinine 0.26. Liver enzymes within normal limits. Influenza A, B, RSV, COVID-19 PCR negative. --CT chest No acute infiltrates --CT abdomen and pelvis with multiple decubitus ulcers, with CT findings suspicious for acute osteomyelitis involving the coccyx, and chronic osteomyelitis involving the right ischium. No drainable fluid collections. -- Admitted to inpatient unit. 1 L IV fluids given on admission. Tachycardia improved Fluids discontinued on 05/11/2024 Clinical pharmacist in ED reviewed chart, noted multiple allergies. Started on linezolid with Flagyl, ceftriaxone Infectious disease consult requested and are following As per ID on 05/11 Discontinued Linezolid Treat with Ceftriaxone, Daptomycin and oral Metronidazole General surgery consult requested. As per surgery team wounds look okay no need for debridement. General surgery team is recommending diverting colostomy. Patient and family to decide about it going forward Wound care consult requested. Daily wound care. Pressure injury prevention, turn and position per protocol. Contact precautions per protocol. Pulsate mattress in place 1 blood culture done in the ED remain negative so far Urinary tract infection-catheter related. Neurogenic bladder with chronic indwelling Cristobal catheter Has chronic indwelling Cristobal catheter, reports last catheter last changed 2 weeks back. Catheter changed in ED. Now draining clear concentrated urine. --UA large leukocyte esterase, 123 WBCs, few bacteria and WBC clumps present. Started on Linezolid, Fagyl, Ceftriaxone in ED As per ID on 05/11/24 Discontinued Linezolid Treat with Ceftriaxone, Daptomycin and oral Metronidazole Unfortunately urine culture was not sent on admission. Urine culture sent on 05/12/2024. Might not be reliable as patient already received antibiotics since admission Anal wall thickening with large rectal fecal burden on imaging Chronic constipation. Reports has chronic constipation, bowel movement once in 3 to 4 days. Last bowel movement this morning, reports well-formed without blood or melena. -- Prior to admission on narcotics, patient reluctant for bowel meds as reports difficulty with wound care for decubitus ulcer. --CT abdomen and pelvis with no small bowel obstruction. Large rectal fecal burden. Anal wall thickening is likely related to chronic inflammation. -- Scheduled bowel meds. As needed bowel meds, suppository ordered. Minimize narcotic use. --Radiologist recommended follow-up advised to exclude underlying lesions -given anal wall thickening. Discussed with patient and family, age-appropriate health maintenance, follow-up imaging as outpatient. Aggressive bowel regimen started Physical deconditioning from medical illness, chronic debility. Transverse myelitis with paraplegia. Chronic pain on narcotics. Lives at home with her daughter, has home care. Reports mostly bedbound, uses motorized wheelchair as needed. Now reporting generalized weakness. --Address medical issues as discussed above. Continue BUSINESS MANAGEMENT CONSULTANT Tylenol. Continue BUSINESS MANAGEMENT CONSULTANT gabapentin. Continue BUSINESS MANAGEMENT CONSULTANT as needed oxycodone, minimize use as able to. Fall precautions. PT, OT evaluation Patient with acute on chronic pain issues due to decubitus ulcers. Pain medicine team consultation requested regarding management of pain issues Sinus tachycardia likely from sepsis resolved Moderate atherosclerotic disease. Chronic heart failure with preserved EF [last EF greater than 75% from 01/14/2023] Atrial fibrillation not on anticoagulation. Hypertension --Denies any chest pain or palpitations or shortness of breath at this time.Clear lungs. --EKG sinus tachycardia, heart rate 103, QTc 445. --CT chest with linear atelectasis, effusions, or pneumothorax. Moderate atherosclerotic disease. BUSINESS MANAGEMENT CONSULTANT Lasix held on admission. Restarted on 05/12/2024 Continue BUSINESS MANAGEMENT CONSULTANT Toprol, switch to immediate release 25 mg twice daily with hold parameters. ---- BUSINESS MANAGEMENT CONSULTANT not on aspirin or statin. Defer further cardiac workup to outpatient. Intake output monitoring, daily weights. Hypokalemia. Potassium replacement ordered , continue IV fluids normal saline with KCl. Potassium normal at 4.1 Obstructive sleep apnea Uses BiPAP as outpt. Has chronic CO2 retention. Resume BiPAP per home settings. Rheumatoid arthritis Continue on BUSINESS MANAGEMENT CONSULTANT on prednisone 10 mg daily. Chronic Anemia likely secondary to chronic disease. Baseline hemoglobin 9-10 range. Hemoglobin at around previous baseline. Incidental renal stones. CT - No hydronephrosis. Nonobstructive right renal pelvic stones including 13 mm right UPJ calculus. Recommend follow-up with urology as outpatient if symptomatic. Diabetes mellitus with a hemoglobin A1c of 6.6. Monitor blood sugars closely, if elevated will consider sliding scale insulin. BUSINESS MANAGEMENT CONSULTANT not on meds. Age-appropriate health maintenance as outpatient recommended. Clinically Significant Risk Factors Present on Admission # Hypokalemia: Lowest K = 3.3 mmol/L in last 2 days, will replace as needed # Hypoalbuminemia: Lowest albumin = 3.2 g/dL at 05/10/2024 2:44 PM, will monitor as appropriate # Anemia: based on hgb <11 # DMII: A1C = 6.6 % (Ref range: <5.7 %) within past 6 months DVT Prophylaxis: Heparin SQ Code Status: Full Code Diet: Combination Diet Regular Diet Adult Snacks/Supplements Adult: Ensure Max Protein (bariatric); Between Meals Snacks/Supplements Adult: Expedite Bottle; With Meals DVT Prophylaxis: Heparin SQ Cristobal Catheter: PRESENT, indication: Acute retention or obstruction Lines: None Cardiac Monitoring: ACTIVE order. Indication: Tachyarrhythmias, acute (48 hours) Code Status: No CPR- Do NOT Intubate Clinically Significant Risk Factors # Hypokalemia: Lowest K = 3.3 mmol/L in last 2 days, will replace as needed # Hypocalcemia: Lowest Ca = 8.4 mg/dL in last 2 days, will monitor and replace as appropriate # Hypoalbuminemia: Lowest albumin = 3.2 g/dL at 05/10/2024 2:44 PM, will monitor as appropriate # DMII: A1C = 6.6 % (Ref range: <5.7 %) within past 6 months, PRESENT ON ADMISSION # Overweight: Estimated body mass index is 25.66 kg/m?? as calculated from the following: Height as of this encounter: 1.524 m (5'). Weight as of this encounter: 59.6 kg (131 lb 6.3 oz)., PRESENT ON ADMISSION Disposition Plan Medically Ready for Discharge: Anticipated in 2-4 Days when OK with Surgery team and ID after culture results available and stable Noemí Bhat MD Hospitalist Service [facility] Securely message with [facility] (more info) Text page via [facility] Paging/Directory Interval History Chart reviewed, discussed with bedside RN Resting comfortably in bed. Denies any shortness of breath or chest pain. Complains of pain in her decubitus ulcers rates it as 8 out of 10. Discussed about getting a pain medicine consultation to better control her pain issues by adding adjuvant medications. Patient is agreeable. Urine culture sent by the bedside RN. Afebrile since admission. No other acute issues Physical Exam Vital Signs: Temp: 98.1 ??F (36.7 ??C) Temp src: Oral BP: 113/56 Pulse: 82 Resp: 18 SpO2: 97 % O2 Device: None (Room air) Oxygen Delivery: 3 LPM Weight: 131 lbs 6.31 oz General Appearance: Alert awake, not in acute distress Respiratory: Clear to auscultation bilaterally Cardiovascular: Normal rate rhythm regular, no murmurs GI: Soft, nontender, nondistended, bowel sounds positive Skin: Decubitus ulcers present. Getting wound cares per bedside RN and medical records tech. Bilateral lower extremities are atrophic with history of paraplegia Psychiatry; calm and cooperative, pleasant Medical Decision Making Data * Noemí Bhat MD - 05/11/2024 1:22 PM CDT [facility] Medicine Progress Note - Hospitalist Service Date of Admission: 05/10/2024 Assessment & Plan Prerna Major is a 78 year old female with medical history of history of transverse myelitis, paraplegia, neurogenic bladder with chronic indwelling Cristobal catheter, decubitus ulcers with chronic osteomyelitis, RA on chronic prednisone therapy, HUI, HFpEF, atrial fibrillation, hypertension, gastric ulcer presented to the ED with weakness. --Admitted [facility] on 03/06 -03/14/2024 for septic shock secondary to E. coli UTI with bacteremia, stage IV right ischial tuberosity decubitus ulcer. --Readmitted at [facility] on 03/21/[address] showed a sacral decubitus ulcer extending to the sacrum, right deep gluteal soft tissue tunneling and lower gluteal/upper thigh ulceration extending to the ischial tuberosity with evidence of chronic osteomyelitis. General surgery, infectious disease followed and recommended transfer to tertiary center. ---Was admitted at [facility] 03/24 to 03/31/2024. General surgery, infectious disease, wound care closely followed, impression chronic osteomyelitis. Echocardiogram negative for endocarditis.Cultures from outside hospital positive for Alice albicans. Was treated with IV antifungals, switch to oral fluconazole on discharge, completed course on 04/07/2024 for total of 14 days. Sepsis likely from infected decubitus ulcer, urinary source. Acute osteomyelitis involving the coccyx Chronic osteomyelitis involving the right ischium. Chronic decubitus ulcer. History of MRSA infection. --Presenting with abdominal discomfort all over the abdomen associated cramping. Reports associatednausea, no vomiting. Max of 101, associated headache and generalized weakness with poor intake. Reports home health nurse has been following for wound care, cultures positive for bacterial infection and was started on oral amoxicillin and metronidazole 3 days prior. --In ED at the time of evaluation temperature 100.4, blood pressure 133/52, heart rate 112 --Abdomen diffusely tender, no guarding or rigidity, bowel sounds heard. Moving all extremities. --WBC 15.6, lactic acid 1.1, lipase level 11. Hemoglobin 10.3. Sodium 140, potassium 3.3, creatinine 0.26. Liver enzymes within normal limits. Influenza A, B, RSV, COVID-19 PCR negative. --CT chest No acute infiltrates --CT abdomen and pelvis with multiple decubitus ulcers, with CT findings suspicious for acute osteomyelitis involving the coccyx, and chronic osteomyelitis involving the right ischium. No drainable fluid collections. -- Admit to inpatient unit. IV hydration with NS with KCl at 100 cc/h for 10 L. Clinical pharmacist in ED reviewed chart, noted multiple allergies. Recommend linezolid with Flagyl. Continue IV linezolid twice daily. Continue IV Flagyl 3 times daily. Infectious disease consult requested and are following General surgery consult requested Wound care consult requested. Daily wound care. Pressure injury prevention, turn and position per protocol. Contact precautions per protocol. Pulsate mattress in place Urinary tract infection-catheter related. Neurogenic bladder with chronic indwelling Cristobal catheter Has chronic indwelling Cristobal catheter, reports last catheter last changed 2 weeks back. Catheter changed in ED. Now draining clear concentrated urine. --UA large leukocyte esterase, 123 WBCs, few bacteria and WBC clumps present. -- Continue on IV linezolid, IV Flagyl as above. Received 1 dose of IV ceftriaxone in ED. Will continue IV ceftriaxone twice daily. Follow urine cultures, blood cultures and de-escalate antibiotics. Anal wall thickening with large rectal fecal burden on imaging Chronic constipation. Reports has chronic constipation, bowel movement once in 3 to 4 days. Last bowel movement this morning, reports well-formed without blood or melena. -- Prior to admission on narcotics, patient reluctant for bowel meds as reports difficulty with wound care for decubitus ulcer. --CT abdomen and pelvis with no small bowel obstruction. Large rectal fecal burden. Anal wall thickening is likely related to chronic inflammation. -- Scheduled bowel meds. As needed bowel meds, suppository ordered. Minimize narcotic use. --Radiologist recommended follow-up advised to exclude underlying lesions -given anal wall thickening. Discussed with patient and family, age-appropriate health maintenance, follow-up imaging as outpatient. Physical deconditioning from medical illness, chronic debility. Transverse myelitis with paraplegia. Chronic pain on narcotics. Lives at home with her daughter, has home care. Reports mostly bedbound, uses motorized wheelchair as needed. Now reporting generalized weakness. --Address medical issues as discussed above. Continue BUSINESS MANAGEMENT CONSULTANT Tylenol. Continue BUSINESS MANAGEMENT CONSULTANT gabapentin. Continue BUSINESS MANAGEMENT CONSULTANT as needed oxycodone, minimize use as able to. Fall precautions. PT, OT evaluation Sinus tachycardia likely from sepsis. Moderate atherosclerotic disease. Chronic heart failure with preserved EF [last EF greater than 75% from 01/14/2023] Atrial fibrillation not on anticoagulation. Hypertension --Denies any chest pain or palpitations or shortness of breath at this time.Clear lungs. --EKG sinus tachycardia, heart rate 103, QTc 445. --CT chest with linear atelectasis, effusions, or pneumothorax. Moderate atherosclerotic disease. Hold BUSINESS MANAGEMENT CONSULTANT Lasix in the setting of sepsis, fluid resuscitation. Continue BUSINESS MANAGEMENT CONSULTANT Toprol, switch to immediate release 25 mg twice daily with hold parameters. ---- BUSINESS MANAGEMENT CONSULTANT not on aspirin or statin. Defer further cardiac workup to outpatient. Telemetry monitoring. Intake output monitoring, daily weights. Hypokalemia. Potassium replacement ordered , continue IV fluids normal saline with KCl. Potassium normal at 4.1 Obstructive sleep apnea Uses BiPAP as outpt. Has chronic CO2 retention. Resume BiPAP per home settings. Rheumatoid arthritis Continue on BUSINESS MANAGEMENT CONSULTANT on prednisone 10 mg daily. Chronic Anemia likely secondary to chronic disease. Baseline hemoglobin 9-10 range. Hemoglobin at around previous baseline. Incidental renal stones. CT - No hydronephrosis. Nonobstructive right renal pelvic stones including 13 mm right UPJ calculus. Recommend follow-up with urology as outpatient if symptomatic. Diabetes mellitus with a hemoglobin A1c of 6.6. Monitor blood sugars closely, if elevated will consider sliding scale insulin. BUSINESS MANAGEMENT CONSULTANT not on meds. Age-appropriate health maintenance as outpatient recommended. Clinically Significant Risk Factors Present on Admission # Hypokalemia: Lowest K = 3.3 mmol/L in last 2 days, will replace as needed # Hypoalbuminemia: Lowest albumin = 3.2 g/dL at 05/10/2024 2:44 PM, will monitor as appropriate # Anemia: based on hgb <11 # DMII: A1C = 6.6 % (Ref range: <5.7 %) within past 6 months DVT Prophylaxis: Heparin SQ Code Status: Full Code Diet: Combination Diet Regular Diet Adult DVT Prophylaxis: Heparin SQ Cristobal Catheter: PRESENT, indication: Acute retention or obstruction Lines: None Cardiac Monitoring: ACTIVE order. Indication: Tachyarrhythmias, acute (48 hours) Code Status: No CPR- Do NOT Intubate Clinically Significant Risk Factors Present on Admission # Hypokalemia: Lowest K = 3.3 mmol/L in last 2 days, will replace as needed # Hypocalcemia: Lowest Ca = 8.4 mg/dL in last 2 days, will monitor and replace as appropriate # Hypoalbuminemia: Lowest albumin = 3.2 g/dL at 05/10/2024 2:44 PM, will monitor as appropriate # Acute Respiratory Failure: Documented O2 saturation < 91%. Continue supplemental oxygen as needed # Anemia: based on hgb <11 # DMII: A1C = 6.6 % (Ref range: <5.7 %) within past 6 months # Overweight: Estimated body mass index is 25.66 kg/m?? as calculated from the following: Height as of this encounter: 1.524 m (5'). Weight as of this encounter: 59.6 kg (131 lb 6.3 oz). Disposition Plan Medically Ready for Discharge: Anticipated in 2-4 Days when OK with Surgery team and ID after culture results available and stable Noemí Bhat MD Hospitalist Service [facility] Securely message with [employer] (more info) Text page via [employer] Paging/Directory Interval History Chart reviewed, discussed with bedside RN and medical records tech Patient resting comfortably in bed complains of pain in the decubitus ulcers. Getting oxycodone as needed. Denies any nausea vomiting. No fevers or chills. Heart rate improving since admission. No other acute issues Physical Exam Vital Signs: Temp: 98.1 ??F (36.7 ??C) Temp src: Axillary BP: 101/46 Pulse: 71 Resp: 16 SpO2: 100 %O2 Device: Nasal cannula Oxygen Delivery: 3 LPM Weight: 131 lbs 6.31 oz General Appearance: Alert awake, not in acute distress Respiratory: Clear to auscultation bilaterally Cardiovascular: Normal rate rhythm regular, no murmurs GI: Soft, nontender, nondistended, bowel sounds positive Skin: Decubitus ulcers not examined by me. inside polisher dressed the wounds just recently Psychiatry; calm and cooperative, pleasant Medical Decision Making Data documented in this encounter H&P Notes * Ambar Joseph MD - 05/10/2024 5:58 PM CDT [facility] History and Physical Hospitalist Prerna Major Age: [id number] year old Date of : 1945 Date of Admission: 05/10/2024 Primary care provider: Flo Mckeon Assessment and Plan: Prerna Major is a 78 year old female with medical history of history of transverse myelitis, paraplegia, neurogenic bladder with chronic indwelling Cristobal catheter, decubitus ulcers with chronic osteomyelitis, RA on chronic prednisone therapy, HUI, HFpEF, atrial fibrillation, hypertension, gastric ulcer presented to the ED with weakness. --Admitted [facility] on 03/06 -03/14/2024 for septic shock secondary to E. coli UTI with bacteremia, stage IV right ischial tuberosity decubitus ulcer. --Readmitted at [facility] on 03/21/[address] showed a sacral decubitus ulcer extending to the sacrum, right deep gluteal soft tissue tunneling and lower gluteal/upper thigh ulceration extending to the ischial tuberosity with evidence of chronic osteomyelitis. General surgery, infectious disease followed and recommended transfer to tertiary center. ---Was admitted at [facility] 03/24 to 03/31/2024. General surgery, infectious disease, wound care closely followed, impression chronic osteomyelitis. Echocardiogram negative for endocarditis.Cultures from outside hospital positive for Alice albicans. Was treated with IV antifungals, switch to oral fluconazole on discharge, completed course on 04/07/2024 for total of 14 days. Sepsis likely from infected decubitus ulcer, urinary source. Acute osteomyelitis involving the coccyx Chronic osteomyelitis involving the right ischium. Chronic decubitus ulcer. History of MRSA infection. --Presenting with abdominal discomfort all over the abdomen associated cramping. Reports associatednausea, no vomiting. Max of 101, associated headache and generalized weakness with poor intake. Reports home health nurse has been following for wound care, cultures positive for bacterial infection and was started on oral amoxicillin and metronidazole 3 days prior. --In ED at the time of evaluation temperature 100.4, blood pressure 133/52, heart rate 112 --Abdomen diffusely tender, no guarding or rigidity, bowel sounds heard. Moving all extremities. --WBC 15.6, lactic acid 1.1, lipase level 11. Hemoglobin 10.3. Sodium 140, potassium 3.3, creatinine 0.26. Liver enzymes within normal limits. Influenza A, B, RSV, COVID-19 PCR negative. --CT chest No acute infiltrates --CT abdomen and pelvis with multiple decubitus ulcers, with CT findings suspicious for acute osteomyelitis involving the coccyx, and chronic osteomyelitis involving the right ischium. No drainable fluid collections. -- Admit to inpatient unit. IV hydration with NS with KCl at 100 cc/h for 10 L. Clinical pharmacist in ED reviewed chart, noted multiple allergies. Recommend linezolid with Flagyl. Continue IV linezolid twice daily. Continue IV Flagyl 3 times daily. Follow clinical improvement, blood cultures and de-escalate antibiotics. Trend WBC count, fever curve. Follow CRP levels. Infectious disease consult requested. General surgery consult requested. Wound care consult requested. Daily wound care. Pressure injury prevention, turn and position per protocol. Contact precautions per protocol. Urinary tract infection-catheter related. Neurogenic bladder with chronic indwelling Cristobal catheter Has chronic indwelling Cristobal catheter, reports last catheter last changed 2 weeks back. Catheter changed in ED. Now draining clear concentrated urine. --UA large leukocyte esterase, 123 WBCs, few bacteria and WBC clumps present. -- Continue on IV linezolid, IV Flagyl as above. Received 1 dose of IV ceftriaxone in ED. Will continue IV ceftriaxone twice daily. Follow urine cultures, blood cultures and de-escalate antibiotics. Anal wall thickening with large rectal fecal burden on imaging Chronic constipation. Reports has chronic constipation, bowel movement once in 3 to 4 days. Last bowel movement this morning, reports well-formed without blood or melena. -- Prior to admission on narcotics, patient reluctant for bowel meds as reports difficulty with wound care for decubitus ulcer. --CT abdomen and pelvis with no small bowel obstruction. Large rectal fecal burden. Anal wall thickening is likely related to chronic inflammation. -- Scheduled bowel meds. As needed bowel meds, suppository ordered. Minimize narcotic use. --Radiologist recommended follow-up advised to exclude underlying lesions -given anal wall thickening. Discussed with patient and family, age-appropriate health maintenance, follow-up imaging as outpatient. Physical deconditioning from medical illness, chronic debility. Transverse myelitis with paraplegia. Chronic pain on narcotics. Lives at home with her daughter, has home care. Reports mostly bedbound, uses motorized wheelchair as needed. Now reporting generalized weakness. --Address medical issues as discussed above. Continue BUSINESS MANAGEMENT CONSULTANT Tylenol. Continue BUSINESS MANAGEMENT CONSULTANT gabapentin. Continue BUSINESS MANAGEMENT CONSULTANT as needed oxycodone, minimize use as able to. Fall precautions. PT, OT evaluation Sinus tachycardia likely from sepsis. Moderate atherosclerotic disease. Chronic heart failure with preserved EF [last EF greater than 75% from 01/14/2023] Atrial fibrillation not on anticoagulation. Hypertension --Denies any chest pain or palpitations or shortness of breath at this time.Clear lungs. --EKG sinus tachycardia, heart rate 103, QTc 445. --CT chest with linear atelectasis, effusions, or pneumothorax. Moderate atherosclerotic disease. Hold BUSINESS MANAGEMENT CONSULTANT Lasix in the setting of sepsis, fluid resuscitation. Continue BUSINESS MANAGEMENT CONSULTANT Toprol, switch to immediate release 25 mg twice daily with hold parameters. ---- BUSINESS MANAGEMENT CONSULTANT not on aspirin or statin. Defer further cardiac workup to outpatient. Telemetry monitoring. Intake output monitoring, daily weights. Hypokalemia. Potassium replacement, continue IV fluids normal saline with KCl. Recheck potassium in AM. Obstructive sleep apnea Uses BiPAP as outpt. Has chronic CO2 retention. Resume BiPAP per home settings. Rheumatoid arthritis Continue on BUSINESS MANAGEMENT CONSULTANT on prednisone 10 mg daily. Chronic Anemia likely secondary to chronic disease. Baseline hemoglobin 9-10 range. Hemoglobin at around previous baseline. Incidental renal stones. CT - No hydronephrosis. Nonobstructive right renal pelvic stones including 13 mm right UPJ calculus. Recommend follow-up with urology as outpatient if symptomatic. Diabetes mellitus with a hemoglobin A1c of 6.6. Monitor blood sugars closely, if elevated will consider sliding scale insulin. BUSINESS MANAGEMENT CONSULTANT not on meds. Age-appropriate health maintenance as outpatient recommended. Clinically Significant Risk Factors Present on Admission # Hypokalemia: Lowest K = 3.3 mmol/L in last 2 days, will replace as needed # Hypoalbuminemia: Lowest albumin = 3.2 g/dL at 05/10/2024 2:44 PM, will monitor as appropriate # Anemia: based on hgb <11 # DMII: A1C = 6.6 % (Ref range: <5.7 %) within past 6 months DVT Prophylaxis: Heparin SQ Code Status: Full Code Disposition: Expected discharge in greater than 2 days Medically Ready for Discharge: Anticipated in 2-4 Days More than 70% of time spent in direct patient care, care coordination, patient counseling, and formalizing plan of care. Discussed with patient and ED team. Ambar Joseph MD Chief Complaint: History is obtained from patient, chart review. Prerna Major is a 78 year old female with medical history of history of transverse myelitis, paraplegia, neurogenic bladder with chronic indwelling Cristobal catheter, decubitus ulcer with chronic osteomyelitis, RA on chronic prednisone therapy, HUI, HFpEF, atrial fibrillation, hypertension, gastric ulcer presented to the ED with weakness. --Admitted [facility] on 03/06 -03/14/2024 for septic shock secondary to E. coli UTI with bacteremia, stage IV right ischial tuberosity decubitus ulcer. --Readmitted at [facility] on 03/21/[address] showed a sacral decubitus ulcer extending to the sacrum, right deep gluteal soft tissue tunneling and lower gluteal/upper thigh ulceration extending to the ischial tuberosity with evidence of chronic osteomyelitis. General surgery, infectious disease followed and recommended transfer to tertiary center. ---Was admitted at [facility] 03/24 to 03/31/2024. General surgery, infectious disease, wound care closely followed, impression chronic osteomyelitis. Echocardiogram negative for endocarditis.Cultures from outside hospital positive for Alice albicans. Was treated with IV antifungals, switch to oral fluconazole on discharge, completed course on 04/07/2024 for total of 14 days. Patient presenting with abdominal discomfort all over the abdomen associated cramping. Reports associated nausea, no vomiting. Reports on and off fevers of Tmax up to 101. Reports associated headache, generalized weakness. Reports poor intake. Reports home health nurse has been following for wound care, cultures positive for bacterial infection and was started on oral amoxicillin and metronidazole 3 days prior. Has chronic indwelling Cristobal catheter, reports 6 catheter last changed 2 weeks back. Reports has chronic constipation, bowel movement once in 3 to 4 days. Last bowel movement this morning, reports well-formed without blood or melena. Denies any chest pain or palpitations. Denies any shortness of breath. Denies any new cough. Denies any diarrhea. Denies any recent travel. Denies any history of blood clots. Prior to admission not on blood thinner medication. Reports mostly bedbound, uses motorized wheelchair as needed. Lives at home with her daughter, has home care. Reports chronic pain, on narcotics. In ED at the time of evaluation temperature 100.4, blood pressure 133/52, heart rate 112, O2 sats 98% on room air. Lungs clear breath sounds. Abdomen diffusely tender, no guarding or rigidity, bowel sounds heard. Moving all extremities. Cristobal catheter clear concentrated urine. --WBC 15.6, lactic acid 1.1, lipase level 11. Hemoglobin 10.3. Sodium 140, potassium 3.3, creatinine 0.26. Liver enzymes within normal limits. --UA large leukocyte esterase, 123 WBCs, few bacteria and WBC clumps present. Influenza A, B, RSV, COVID-19 PCR negative. EKG sinus tachycardia, heart rate 103, QTc 445. CT chest Linear scarring and atelectasis in both lower lobes. No acute infiltrates, effusions, or pneumothorax. Blood cultures pending. --CT abdomen and pelvis with multiple decubitus ulcers, with CT findings suspicious for acute osteomyelitis involving the coccyx, and chronic osteomyelitis involving the right ischium. No drainable fluid collections. Review of Systems: GENERAL:see HPI EENT: no difficulty swallowing, no hearing difficulty PULMONARY: No shortness of breath CARDIAC: no chest pain GI:see HPI : see HPI NEURO: no loss of consciousness ENDOCRINE: No excessive thirst MUSCULOSKELETAL: chronic pain SKIN: No skin rashes PSYCHIATRY no acute issues. Medical History: Past Medical History: Diagnosis Date Arthritis Decubitus ulcer of right ischial area Gastric ulcer History of transverse myelitis MRSA (methicillin resistant Staphylococcus aureus) 12/02/2013 Blood Neurogenic bladder Paraplegia Paroxysmal atrial fibrillation RA (rheumatoid arthritis) Sacral decubitus ulcer Surgical History: Past Surgical History: Procedure Laterality Date EGD Social History: Lives at home with her daughter. Uses motorized wheelchair to ambulate, mostly bedbound. Denies any smoking Family History: Family history reviewed, no pertinent family history to HPI. Allergies: Allergies Allergen Reactions Piperacillin Anaphylaxis, Unknown, Other (See Comments) and Rash Tolerated augmentin, ceftriaxone, meropenem Per SNF Per patient, has tolerated Augmentin Per SNF Per patient, has tolerated Augmentin Tazobactam Anaphylaxis, Unknown, Other (See Comments) and Rash Per SNF Vancomycin Anaphylaxis and Other (See Comments) Per SNF Medications: Home meds reviewed Physical Exam Vital Signs with Ranges Temp: [100.4 ??F (38 ??C)] 100.4 ??F (38 ??C) Pulse: [100-112] 112 Resp: [18] 18 BP: (119-136)/(46-57) 119/49 SpO2: [81 %-99 %] 81 % Intake/Output Summary (Last 24 hours) at 05/10/2024 1758 Last data filed at 05/10/2024 1427 Gross per 24 hour Intake 400 ml Output -- Net 400 ml PHYSICAL EXAM GENERAL: Patient is in no distress. Alert and oriented. HEENT: Oropharynx pink, moist. HEART: Regular rate and rhythm. S1S2. No murmurs LUNGS: Clear to auscultation bilaterally. No expiratory wheeze. Respirations unlabored ABDOMEN: Soft, suprapubic tenderness. Bowel sounds heard. No guarding or rigidity. NEURO: Moving all extremities. EXTREMITIES: No pedal edema. 2+ peripheral pulses. SKIN: Warm, dry. Skin on back unable to be examined, in ED [facility]. PSYCHIATRY Cooperative Data: All new lab and imaging data was reviewed. documented in this encounter Procedure Notes * Chang, Dede M, RN - 05/18/2024 9:19 AM CDTAssociated Order(s): Single Lumen Midline Placement [facility] Single Lumen Midline Placement Date/Time: 05/18/2024 9:15 AM Performed by: Dede Downing RN Authorized by: Janak Robledo PA-C Indications: vascular access UNIVERSAL PROTOCOL Site Marked: Yes Prior Images Obtained and Reviewed: NA Required items: Required blood products, implants, devices and special equipment available Patient identity confirmed: Verbally with patient, arm band and hospital- assigned identification number NA - No sedation, light sedation, or local anesthesia Confirmation Checklist: Patient's identity using two indicators, relevant allergies, procedure was appropriate and matched the consent or emergent situation and correct equipment/implants were available Time out: Immediately prior to the procedure a time out was called [place] Protocol: the Joint Commission [place] Protocol was followed Preparation: Patient was prepped and draped in usual sterile fashion ANESTHESIA Anesthesia: Local infiltration Local Anesthetic: Lidocaine 1% without epinephrine Anesthetic Total (mL): 3 SEDATION Patient Sedated: No Preparation: skin prepped with 2% chlorhexidine and [...] size: 4 Fr Brand: Bard Lot number: [id number] Placement method: MST and ultrasound Number of [...] return through all ports PROCEDURE Patient Tolerance: Patient tolerated the procedure well with no immediate complicationsDescribe Procedure: Patient agreed to have midline placed due to poor IV access Procedure explained to patient Attempted right basilic vein x 2 attempts but was unable to thread catheter Attempted right medial brachial vein and was able to successfully place line Ready for immediate use documented in this encounter Consult Notes * Raven Deleon - 05/21/2024 12:25 PM CDTAssociated Order(s): PHARMACY LIAISON FOR MEDICATION COVERAGE CONSULT Summary: Buprenorphine and pregabalin coverage check Patient has Medicare Advantage through [employer]. Buprenorphine 5mcg patch: $95/mo. Pregabalin 50mg: $47/mo. Raven Deleon Semiconductor Engineer/Liaison, Discharge Pharmacy [phone] (voice or text) [email or web address] Available on [facility] and Teams * Leela Degroot APRN CNP - 05/21/2024 11:39 AM CDTAssociated Order(s): PAIN MANAGEMENT ADULT IP CONSULT Images from the original note were not included. [facility] ACUTE PAIN SERVICE CONSULTATION [facility] ngmoco Console Leela Televisit Time start video: 10:51 am Time stop video: 11:18 am Remote Location: Patient Location: Date of Admission: 05/10/2024 Date of Consult (When I saw the patient): 05/21/24 Assessment/Plan: Assessment/Plan: Prerna Major is a 78 year old female who was admitted on 05/10/2024. Pain team was asked to see the patient for acute postoperative pain in the setting of chronic pain associated with decubitus ulcers buttocks and hip, rheumatoid arthritis on low dose chronic opioid therapy in patient with history of traverse myelitis and paraplegia. Admitted for planned procedure. 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 The patient does not smoke and no chemical dependency history. Post op day: 3 Days Post-Op. Laparoscopic diverting colostomy, N/A - Abdomen Opioid Induced Respiratory Depression Risk Assessment moderate due to age medical frailty paraplegia CrCl 87.7 mg/mL The patient's home MME was 22.5 mg daily. In the last 24 hours, patient has utilized 4 mg ( 1),of PO dilaudid, 10 mg Oxycodone (5) 0.4 mg (2) of IV dilaudid, for an MME 86 mg (yesterday MME was -- mg). PLAN: 1) Pain is consistent with musculoskeletal and visceral pain type in the setting of planned colostomy and chronic pain. Consider the following differentials pain associated with acute procedure. Multimodal Medication Therapy Topical: continue Diclofenac, lidocaine patches and lidocaine gel NSAID'S: no recommended Steroids: continue chronic prednisone Muscle Relaxants: methocarbamol ( Robaxin) qid Adjuvants:add Hydroxyzine 10 mg tid acetaminophen (Tylenol) scheduled, continue gabapentin 400 mg tid phar liaison for potential crossover to Lyrica due to lack of efficacy of Gabapentin, Lyrica denied coverage myron increase gabapentin 600 mg tid Antidepressants/anxiolytics:none Opioids: Increase Dilaudid to 2-4 mg every 3 hrs prn Pharm liaison consult butrans patch noted Butrans cost prohibitive to patient at $100.00 /month IV Pain medication: not indicated Non-medication interventions: Ice, Heat, Rest, PT, OT, Distraction (TV, Music, Reading), and abdominal binder with turning to left for drsg changes Constipation Prophylaxis: Scheduled and prn: Senna-docusate -Opioid prescriber Flo Lanier MD -[place] [employer] pulled from system on no controlled substance note . Discussed by patrice Mars PharmD covering floor and verified script of Oxycodone at last discharge and othe script of O[facility]codone consistently from [facility] This indicates discrepancy Discharge Recommendations - We recommend noted on pharmacy admission record oxyCODONE (ROXICODONE) 5 MG tablet Take 7.5 mg by mouth every 4 hours as needed for severe pain 05/10/2024 Prescribing the following at the time of discharge: hosptial medication TBD Intranasal naloxone not recommended. script was sent to the pharmacy. Follow up wound management general surgery . Acute pain service will continue to follow. Disposition: TBD maybe TCU History of Present Illness (HPI): Prerna Major is a 78 year old paraplegic female with a past medical history noted above andpresents with acute postoperative pain from planned colostomy is POD 3 in setting of chronic pain chronic decubitus ulcers on low dose chronic opioid therapy. The patient reports pain that is locatedat colostomy site, bilateral shoulder, sacral decubitus and colostomy site pain worsens with tuningto left for dressing changes, wounds hurt all the time more so with dressing changes and shoulder in pain all the time. Alleviating factors include medications, rest and exacerbates include above notations. Current pain is rated at 3/10 at rest and 10/10 with turning with goal is 3-4/10. The patient has a mild opioid tolerance. Opioid induced side effects including sedation , respiratory suppression, nausea , and constipation. She is having loose liquid from colostomy, passing flatus. Denies SOB chest pain changes in eating or drinking. Has hoarse voice with chronic partial vocal cord paralysis She tell me the Gabapentin , even when increased from last admission has not helped her pain, Discussed multimodal interventions as well as other than systemic pharmacologic treatments for acute and chronic pain . Review of medical record/Summary of labs and care everywhere as part of comprehensive review. Past pain treatments have include opioids medical management gabapentin, UDS No results found for: UAMP, UBARB, UCANN, UCOC, OPIT, UPCP Medical History has a past medical history of Arthritis, Decubitus ulcer of right ischial area, Gastric ulcer, History of transverse myelitis, MRSA (methicillin resistant Staphylococcus aureus) (12/02/2013), Neurogenic bladder, Paraplegia, Paroxysmal atrial fibrillation, RA (rheumatoid arthritis), and Sacral decubitus ulcer. Surgical History has a past surgical history that includes Egd and Laparoscopic colostomy (N/A, 05/18/2024). Allergies Allergies Allergen Reactions Piperacillin Other (See Comments), Anaphylaxis, Rash and Unknown Tolerated augmentin, ceftriaxone, meropenem Per SNF Per patient, has tolerated Augmentin Tazobactam Anaphylaxis, Unknown, Other (See Comments) and Rash Per SNF Vancomycin Anaphylaxis and Other (See Comments) Per SNF Current Home Medications Prior to Admission medications Medication Sig Start Date End Date Taking? Authorizing Provider acetaminophen (TYLENOL 8 HOUR ARTHRITIS PAIN) 650 MG CR tablet Take 1,300 mg by mouth 2 times dailyas needed for mild pain or fever Yes Unknown, Entered By History amoxicillin-clavulanate (AUGMENTIN) 875-125 MG tablet Take 1 tablet by mouth 2 times daily for 5 days 05/15/24 05/20/24 Yes Anna Fajardo MD Ascorbic Acid (VITAMIN C PO) Take 500 mg by mouth every evening Yes Unknown, Entered By History bisacodyl (DULCOLAX) [address] 1 suppository (10 mg) rectally daily as needed for constipation 05/15/24 Yes Anna Fajardo MD diclofenac (VOLTAREN) 1 % topical gel Apply 4 g topically 3 times daily 05/15/24 Yes Anna Fajardo MD doxycycline hyclate (VIBRAMYCIN) 100 MG capsule Take 1 capsule (100 mg) by mouth every 12 hours for5 days 05/15/24 05/20/24 Yes Anna Fajardo MD furosemide (LASIX) 40 MG tablet Take 40 mg by mouth daily Yes Unknown, Entered By History gabapentin (NEURONTIN) 300 MG capsule Take 300 mg by mouth 3 times daily Yes Unknown, Entered By History lactobacillus rhamnosus, GG, (CULTURELL) capsule Take 1 capsule by mouth daily Yes Unknown, EnteredBy History Lidocaine (LIDOCARE) 4 % Patch Place 3 patches onto the skin every 24 hours To prevent lidocaine toxicity, patient should be patch free for 12 hrs daily. 05/15/24 Yes Anna Fajardo MD loperamide (IMODIUM) 2 MG capsule Take 1 capsule (2 mg) by mouth 3 times daily as needed for diarrhea 05/15/24 Yes Anna Fajardo MD metoprolol succinate ER (TOPROL XL) 100 MG 24 hr tablet Take 0.5 tablets (50 mg) by mouth daily 05/15/24 Yes Anna Fajardo MD naproxen sodium (ANAPROX) 220 MG tablet Take 220 mg by mouth daily (with breakfast) Yes Unknown, Entered By History oxyCODONE (ROXICODONE) 10 MG tablet Take 1 tablet (10 mg) by mouth every 4 hours as needed for severe pain (IF pain not managed with non-pharmacological and non- opioid interventions) 05/15/24 Yes Anna Fajardo MD oxyCODONE (ROXICODONE) 5 MG tablet Take 1.5 tablets (7.5 mg) by mouth every 4 hours as needed 05/15/24 Yes Anna Fajardo MD polyethylene glycol (MIRALAX) 17 GM/Dose powder Take 17 g by mouth daily 05/15/24 Yes Anna Fajardo MD predniSONE (DELTASONE) 5 MG tablet Take 10 mg by mouth daily Yes Unknown, Entered By History sennosides (SENOKOT) 8.6 MG tablet Take 1-2 tablets by mouth 2 times daily as needed for constipation 05/15/24 Yes Anna Fajardo MD triamcinolone (KENALOG) 0.1 % external cream Apply topically 2 times daily as needed for irritationYes Unknown, Entered By History zinc sulfate (ZINCATE) 220 (50 Zn) MG capsule Take 220 mg by mouth every evening Yes Unknown, Entered By History Social History Reviewed, and she Family History- Reviewed care everywhere to find family history Nothing relevant to pain consult Reviewed, and family history is not on file. Review of Systems Complete ROS reviewed, unless noted , all other systems reviewed (with patient) and all others found to be negative. Objective: Vitals: B/P: 128/61, T: 98.2, P: 71, R: 16 Weight: 135 lbs 9.33 oz Body mass index is 26.48 kg/m??. Physical Exam: General Appearance: Alert, cooperative, no distress, appears stated age, grooming good Patient is pleasant Head: Normocephalic, without obvious abnormality, atraumatic Eyes: Pupils normal size conjunctivae clear, no drainage ENT/Throat: Lips and mouth moist Lymph/Neck: Supple, symmetrical, trachea midline, no adenopathy, thyroid: not enlarged, symmetric Lungs: Respirations unlabored Musculoskeletal: Extremities normal, atraumatic Incision did not observe Skin: Skin color good Neurologic Affect: Alert and oriented X 3, Moves all upper extremities euthymic, abberant pain behaviors No Imaging Reviewed Personally By Myself Results for orders placed or performed during the hospital encounter of 05/10/24 CT Chest/Abdomen/Pelvis w Contrast Impression IMPRESSION: 1. Multiple decubitus ulcers, with CT findings suspicious for acute osteomyelitis involving the coccyx, and chronic osteomyelitis involving the right ischium. No drainable fluid collections. 2. Cristobal catheter within the vagina. 3. Nonobstructing right renal pelvis stones, including 13 mm right UPJ calculus. 4. Anal wall thickening is likely related to chronic inflammation. Follow-up advised to exclude underlying lesions. Tube/Catheter positioning was called to Chago Meadows PA-C by Dr. Rai Lock on 05/10/2024 5:18 PM CDT. Labs Reviewed Personally By Myself Sodium Date Value Ref Range Status 05/21/2024 143 135 - 145 mmol/L Final 12/14/2013 137 133 - 144 mmol/L Final Potassium Date Value Ref Range Status 05/21/2024 3.4 3.4 - 5.3 mmol/L Final 12/14/2013 4.2 3.4 - 5.3 mmol/L Final Chloride Date Value Ref Range Status 05/21/2024 104 98 - 107 mmol/L Final 12/14/2013 96 94 - 109 mmol/L Final Carbon Dioxide Date Value Ref Range Status 12/14/2013 40 (H) 20 - 32 mmol/L Final Carbon Dioxide (CO2) Date Value Ref Range Status 05/21/2024 32 (H) 22 - 29 mmol/L Final Anion Gap Date Value Ref Range Status 05/21/2024 7 7 - 15 mmol/L Final 12/14/2013 1 (L) 6 - 17 mmol/L Final Glucose Date Value Ref Range Status 05/21/2024 96 70 - 99 mg/dL Final 12/14/2013 95 60 - 99 mg/dL Final GLUCOSE BY METER POCT Date Value Ref Range Status 05/19/2024 157 (H) 70 - 99 mg/dL Final Urea Nitrogen Date Value Ref Range Status 05/21/2024 31.0 (H) 8.0 - 23.0 mg/dL Final 12/14/2013 27 7 - 30 mg/dL Final Creatinine Date Value Ref Range Status 05/21/2024 0.44 (L) 0.51 - 0.95 mg/dL Final 12/14/2013 0.37 (L) 0.52 - 1.04 mg/dL Final GFR Estimate Date Value Ref Range Status 05/21/2024 >90 >60 mL/min/1.73m2 Final Comment: eGFR calculated using 2020 CKD-EPI equation. 12/14/2013 >90 >60 mL/min/1.7m2 Final Calcium Date Value Ref Range Status 05/21/2024 8.6 (L) 8.8 - 10.4 mg/dL Final Comment: Reference intervals for this test were updated on 04/27/2024 to reflect our healthy population more accurately. There may be differences in the flagging of prior results with similar values performed with this method. Those prior results can be interpreted in the context of the updated reference intervals. 12/14/2013 7.4 (L) 8.5 - 10.4 mg/dL Final Labs Imaging and Notes Reviewed : Reviewed I have personally reviewed pertinent notes, labs, tests,and radiologic report and imaging in patient's chart. Total time spent 90 minutes with greater than 50% in consultation, education and coordination of care. Also discussed with RN and Hospital Medicine Service. I discussed and educated the pain plan with the patient regarding: multimodal pain approach, medications as listed above, and advised to take no more than the prescribed dose as increased doses may cause respiratory depression or . Treatment plan includes: multimodal pain approach, Hospital Medicine Service for medical managementpharmacy. Elements of Medical Decision Making as described above. High level of decision making required due to 1 or more chronic illness with severe exacerbation, progression, and side effects of treatment. Acute or chronic illness or injury or surgery. High risk therapy including opioids, high risk drug therapy including oral and/or parenteral controlled substances. Please see A&P for additional details of medical decision making. Medical complexity over the past 24 hours: - Decision regarding ESCALATION OF LEVEL OF CARE - Prescription DRUG MANAGEMENT performed Increase dilaudid Patient is understanding of the plan. All questions and concerns addressed to patient's satisfaction. 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 [facility] PRE-OP OSTOMY CONSULTATION AND ASSESSMENT INTAKE Type of Stoma Planned: Permanent v. 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 Present: NA Significant Vision Issues: No Hand Dexterity Issues: No Pertinent Information/Identified Barriers to Independent Care: patient identified anxiety and needing to be coached to breath after surgery as personal barriers to independence Stoma Site Marking Assessed Patient while: Lying and Sitting Marked in LUQ with: Permanent Marker, Covered with Tegaderm, and Marker and extra Tegaderm sent with patient EDUCATION Teaching Folder Given: Yes Instruction: [facility] Role, Activity, Anatomy, Bathing: Ostomy supplies are water proof, Clothing, Diet,Fluids: Drink 6-8 glasses of non-caffeinated fluids daily, Hospital Stay: basics, Pouching Products: Showed pouching system, Supply Ordering, and Support Group Total Time Spent with Patient: 90 minutes Johanny FOURNIER 1st choice: Securely message with [facility] ([facility]) (2nd option: [facility] Office , messages checked periodically Mon- Fri 8a-4p) * Franca Jim MD - 05/16/2024 10:44 AM CDTAssociated Order(s): COLORECTAL SURGERY IP CONSULT; COLORECTAL SURGERY IP CONSULT Images from the original note were not included. [facility] Colon and Rectal Surgery Consult Note Name: Prerna Major Date of : 1945 Age: [age] year old Date of admission: 05/10/2024 Primary care provider: Flo Mckeon Requesting Provider: Aundrea Haile PA-C Reason for consult: Chronic wounds, revaluate for colonic diversion History of Present Illness: Prerna Major is a 78 year old female with history of HFpEF, a fib, T2DM, obesity, prior gastric ulcer, transverse myelitis, RA on steroids, paraplegia, neurogenic bladder and decubitus ulcerswith chronic osteomyelitis who was admitted primarily for sepsis presumed to be from an infected decubitus ulcer and UTI. She was seen by general surgery. They had discussed possibility of fecal diversion though at the time the patient was not interested in proceeding with this. However, there was subsequent concern that there were feces within her wound and she therefore would like to reconsiderrecommendations from general surgery for colostomy. At baseline she does not have control of her bowels. She does also have chronic constipation. She has some concerns about procedures in general as in the past she has had difficult with extubation due to a vocal cord being out on one side. She is interested in learning more about a colostomy as an option, and we reviewed the procedure, management and care. She came prepared with written questions which we addressed. She would benefit from teaching pre-operatively by [facility]. Past Medical History: Past Medical History: Diagnosis [...] Alcohol use: Not on file Family History: History reviewed. No pertinent family history. Allergies: Allergies Allergen Reactions Piperacillin Other (See Comments), Anaphylaxis, Rash and Unknown Tolerated augmentin, ceftriaxone, meropenem Per SNF Per patient, has tolerated Augmentin Tazobactam Anaphylaxis, Unknown, Other (See Comments) and Rash Per SNF Vancomycin Anaphylaxis and Other (See Comments) Per SNF Medications: Current Facility-Administered Medications Medication Dose Route Frequency Provider Last Rate Last Admin acetaminophen (TYLENOL) tablet 650 mg 650 mg Oral Q6H Leela Degroot APRN EMERGENCY SERVICES PROFESSIONAL 650 mg at 05/16/24 0916 amoxicillin-clavulanate (AUGMENTIN) 875-125 MG per tablet 1 tablet 1 tablet Oral Q12H [facility] (06/01) Adeline Varela MD 1 tablet at 05/16/24 0914 diclofenac (VOLTAREN) 1 % topical gel 4 g 4 g Topical TID Leela Degroot APRN EMERGENCY SERVICES PROFESSIONAL 4 g at 05/16/24 0922 doxycycline hyclate (VIBRAMYCIN) capsule 100 mg 100 mg Oral Q12H [facility] (06/01) Adeline Varela MD 100 mg at 05/16/24 0914 furosemide (LASIX) tablet 40 mg 40 mg Oral Daily Noemí Bhat MD 40 mg at 05/16/24 0914 gabapentin (NEURONTIN) capsule 400 mg 400 mg Oral TID Leela Degroot APRN EMERGENCY SERVICES PROFESSIONAL 400 mg at 05/16/24 0916 heparin ANTICOAGULANT injection 5,000 Units 5,000 Units Subcutaneous Q8H Ambar Joseph MD 5,000 Units at 05/16/24 0517 lactobacillus rhamnosus (GG) (CULTURELL) capsule 1 capsule 1 capsule Oral Daily Ambar Joseph MD 1 capsule at 05/16/24 0914 Lidocaine (LIDOCARE) 4 % Patch 3 patch 3 patch Transdermal Q24h Leela Degroot APRN EMERGENCY SERVICES PROFESSIONAL 3 patch at 05/15/242015 metoprolol tartrate (LOPRESSOR) tablet 25 mg 25 mg Oral BID Ambar Joseph MD 25 mg at multivitamin w/minerals (THERA-VIT-M) tablet 1 tablet 1 tablet Oral Daily Noemí Bhat MD 1 tablet at 05/16/2414 naproxen (NAPROSYN) tablet 250 mg 250 mg Oral TID w/meals Leela Degroot APRN EMERGENCY SERVICES PROFESSIONAL 250 mg at 05/16/24 0914 polyethylene glycol (MIRALAX) Packet 17 g 17 g Oral Daily Noemí Bhat MD potassium chloride (KLOR-CON) Packet 40 mEq 40 mEq Oral Once Ambar Joseph MD predniSONE (DELTASONE) tablet 10 mg 10 mg Oral or NG Tube Daily Ambar Joseph MD 10 mg at 05/16/24 0917 senna-docusate (SENOKOT-S/PERICOLACE) 8.6-50 MG per tablet 2 tablet 2 tablet Oral or NG Tube BID Ambar Joseph MD sodium chloride (PF) 0.9% PF flush 3 mL 3 mL Intracatheter Q8H Ambar Joseph MD 3 mL at 05/14/24 1418 sodium hypochlorite (DAKINS half-strength) external solution Irrigation BID Ambar Joseph MD Given at 05/16/24 0922 vitamin C (ASCORBIC ACID) tablet 250 mg 250 mg Oral Daily Ambar Joseph MD 250 mg at 05/16/24 0921 zinc sulfate (ZINCATE) capsule 220 mg 220 mg Oral or NG Tube QPM Ambar Joseph MD 220 mg at 05/15/242011 Review of Systems: A comprehensive greater than 10 system review of systems was carried out. Pertinent positives and negatives are noted above. Otherwise negative for contributory info. Physical Exam: Blood pressure 134/55, pulse 92, temperature 98.3 ??F (36.8 ??C), temperature source Oral, resp. rate 18, height 1.524 m (5'), weight 71.3 kg (157 lb 3 oz), SpO2 98%. Intake/Output Summary (Last 24 hours) at 05/16/2024 1044 Last data filed at 05/16/2024 0537 Gross per 24 hour Intake -- Output 2400 ml Net -2400 ml Exam: GENERAL: Awake alert and oriented LUNGS: Non labored breathing ABD: soft NTND. Prior open joanie incision scar is well healed. EXTREMITIES: warm without edema RECTAL: Data: Personally reviewed. CT 05/10/2024 AP IMPRESSION: 1. Multiple decubitus ulcers, with CT findings suspicious for acute osteomyelitis involving the coccyx, and chronic osteomyelitis involving the right ischium. No drainable fluid collections. 2. Cristobal catheter within the vagina. 3. Nonobstructing right renal pelvis stones, including 13 mm right UPJ calculus. 4. Anal wall thickening is likely related to chronic inflammation. Follow-up advised to exclude underlying lesions. Recent Labs Lab 05/16/24 0842 05/15/24 0846 05/13/24 0816 05/11/24 1055 05/10/24 1444 WBC 15.9* -- 10.0 13.4* 15.6* HGB 10.2* -- 9.6* -- 10.3* HCT 35.0 -- 33.0* -- 35.2 MCV 88 -- 89 -- 86 PLT 285 255 283 -- 287 7-Day Micro Results Collected Updated Procedure Result Status 05/14/2024 1601 05/14/2024 1939 C. difficile Toxin B PCR with reflex to C. difficile Antigen and Toxins A/B EIA [[id number]] Stool from Per Rectum Final result Component Value C Difficile Toxin B by PCR Negative A negative result does not exclude actual disease due to C. difficile and may be due to improper collection, handling and storage of the specimen or the number of organisms in the specimen is below the detection limit of the assay. 05/12/2024 1220 05/13/2024 1046 Urine Culture [[id number]] Urine, Cristobal Catheter Final result Component Value Culture No Growth 05/10/2024 1448 05/15/2024 1531 Blood Culture Peripheral Blood [[id number]] Peripheral Blood Final result Component Value Culture No Growth 05/10/2024 1446 05/10/2024 1608 Symptomatic Influenza A/B, RSV, & SARS-CoV2 PCR (COVID-19) Nasopharyngeal [[id number]] Swab from Nasopharyngeal Final result Component Value Influenza A PCR Negative Influenza B PCR Negative RSV PCR Negative SARS CoV2 PCR Negative NEGATIVE: SARS-CoV-2 (COVID-19) RNA not detected, presumed negative. Recent Labs Lab 05/16/24 0842 05/13/24 0816 05/11/24 1055 05/10/24 1444 NA 142 140 138 140 POTASSIUM 3.7 4.1 4.1 3.3* CHLORIDE 104 107 106 102 CO2 31* 27 25 28 ANIONGAP 7 6* 7 10 GLC 128* 94 199* 93 BUN 27.0* 20.0 12.0 16.0 CR 0.33* 0.33* 0.29* 0.26* GFRESTIMATED >90 >90 >90 >90 HOLLY 8.9 8.7* 8.4* 8.8 PROTTOTAL -- -- -- 5.2* ALBUMIN -- -- -- 3.2* BILITOTAL -- -- -- 0.4 ALKPHOS -- -- -- 101 AST -- -- -- 17 ALT -- -- -- 9 No INR Assessment and Plan: Prerna Major is a 78 year old medically complex woman with longstanding history of decubitus pressure ulcers with chronic osteomyelitis and with constipation, now interested in considering colostomy for improved wound control/hygiene. From review of her CT from 05/10, there is ample redundancy of the sigmoid colon making a sigmoid colostomy the most likely option for colostomy creation. She does have a history of a gastric ulcer though his was not perforated; however did have an open joanie which could make a transverse colostomy more challenging, and she does have less redundancy here as well. She does have multiple factors that do increase her surgical risks, including her cardiac disease, chronic immunosuppression, immobility and obesity. We also discussed risks of bleeding infection, delayed wound healing, prolapse, hernia, damage to surrounding structures, need for additionalprocedures, risks of her organs and life with surgery. We also discussed that she has a concern regarding her airway management as she has had issues withextubation in the past due to vocal cord dysfunction. She would benefit from seeing WOCN for education and marking. If she remains inpatient, this could be performed tomorrow. Otherwise, could schedule outpatient. We reviewed that prior to a procedure, she would require stoma marking. She would also require a bowel prep. Her questions were answered. We discussed that we will work to set this up outpatient as there is no urgency to the procedure and given her risks, particularly her concerns over her airway, it would be best to schedule a time for this and allow for a review by anesthesia. She would like to receive her care at [facility]. If she prefers to stay and have his completed this admission, could add on for Friday. Would bowelprep and taiwo tomorrow. For questions/paging, please contact the CRS office at [phone]. Mechelle Jim MD Colon and Rectal Surgery [facility] [address] [address] T: [phone] F: [phone] * Linda Ware RN - 05/15/2024 10:03 AM CDT Care Management Discharge Note Discharge Date: 05/15/2024 Discharge Disposition: Home, Home Care [facility] (wound care and SANDY) Discharge Services: N/A Discharge DME: N/A Discharge Transportation: patient to coordinate with family has her wheelchair at the bedside and family has a van Private pay costs discussed: Not applicable Does the patient's insurance plan have a 3 day qualifying hospital stay waiver? No PAS Confirmation Code: n/a Patient/family educated on Medicare website which has current facility and service quality ratings:no Education Provided on the Discharge Plan: yes Persons Notified of Discharge Plans: bedside RN, Patient at bedside Patient/Family in Agreement with the Plan: yes Handoff Referral Completed: Yes faxed resumption orders to both [facility] and [facility] Additional Information: [employer] Man met with the patient at the bedside. Patient is A+Ox4. Patient cleared for discharge to homewith family with resumption of homecare through [facility] for RN/FIGURINE MAKER, TIME RECORDER services of Daughter, and [facility] for Wound cares and SANDY visit(s). Patient noted no further needs at discharge and will be working on coordinating transportation to home with family. No further needs identified. Bedside RN aware of the above and that AVS is updated to reflect wound cares. Addendum: 05/15 15:58 Per Charge discharge delayed as consult to be placed for CRS. Care Transitions will continue to follow. Linda Ware RN, BSN, M Care Transitions Specialist [facility] Care Transitions Specialist [phone] [id number] [email or web address] Office: [phone] [facility] * Jessica Rudolph RN - 05/13/2024 11:21 AM CDTAssociated Order(s): WOUND OSTOMY CONTINENCE NURSE IP CONSULT [facility] WO Nurse Inpatient Assessment Consulted for: Discuss life after an ostomy with daughter. Summary: Consulted to discuss what having an ostomy looks like with daughter. Spoke with daughter Elvi over the phone. Discussed basic anatomy and stoma creation, pouching system, frequency of pouch changing and emptying, WOC role, and ways that a stoma could be helpful for her mother. All questions answered. For wound assessments see WOC note from 05/11. Patient History (according to provider note(s): 78 year old female with medical history of history of transverse myelitis, paraplegia, neurogenic bladder with chronic indwelling Cristobal catheter, decubitus ulcers with chronic osteomyelitis, RA on chronic prednisone therapy, HUI, HFpEF, atrial fibrillation, hypertension, gastric ulcer presented to the ED with weakness. Jessicashelly BARBERN Dept. Vocera- Contact [facility] Nurse (Zaynab) via Vocera Dept. Office Number: [phone] * Yaima Roman RN - 05/12/2024 3:21 PM CDTAssociated Order(s): CARE MANAGEMENT / SOCIAL WORK IP CONSULT Care Management Initial Consult General Information Assessment completed with: Mary Tomas Type of CM/SW Visit: Initial Assessment Primary Care Provider verified and updated as needed: Yes Readmission within the last 30 days: no previous admission in last 30 days Reason for Consult: other (see comments) (Elevated risk of readmission) Advance Care Planning: Communication Assessment Patient's communication style: spoken language (Mauritian or Bilingual) Hearing Difficulty or Deaf: yes Wear Glasses or Blind: yes Cognitive Cognitive/Neuro/Behavioral: WDL Living Environment: People in home: child(suha), adult, spouse Elvi Daniels Current living Arrangements: house Able to return to prior arrangements: yes Family/Social Support: Care provided by: child(suha), homecare agency Provides care for: no one, unable/limited ability to care for self Marital Status: Children, Other (specify) (niece) Description of Support System: Supportive, Involved Current Resources: Patient receiving home care services: Yes Skilled Home Care Services: Correction, Home Health Aid Community Resources: Other (see comment) ([facility] SANDY once a week for wound care) Equipment currently used at home: hospital bed, lift device, wheelchair, manual Supplies currently used at home: Employment/Financial: Employment Status: disabled Financial Concerns: none Referral to Financial Worker: No Does the patient's insurance plan have a 3 day qualifying hospital stay waiver? No Lifestyle & Psychosocial Needs: Social Determinants of Health Food Insecurity: No Food Insecurity (10/19/2023) Received from [facility] Hunger Vital Sign Worried About Running Out of Food in the Last Year: Never true Ran Out of Food in the Last Year: Never true Depression: Not on file Housing Stability: Low Risk (10/19/2023) Received from [facility] Housing Stability What is your living situation today?: I have a steady place to live Tobacco Use: Low Risk (11/07/2023) Received from [facility] Patient History Smoking Tobacco Use: Never Smokeless Tobacco Use: Never Passive Exposure: Not on file Financial Resource Strain: Low Risk (04/02/2024) Received from [facility] Financial Resource Strain Difficulty of Paying Living Expenses: 2 Difficulty of Paying Living Expenses: Not on file Alcohol Use: Not on file Transportation Needs: No Transportation Needs (04/02/2024) Received from [facility] Transportation Needs Lack of Transportation (Medical): 1 Physical Activity: Not on file Interpersonal Safety: Not At Risk (10/19/2023) Received from [facility] Humiliation, Afraid, Rape, and Kick questionnaire Fear of Current or Ex-Partner: No Emotionally Abused: No Physically Abused: No Sexually Abused: No Stress: Not on file Social Connections: Unknown (02/03/2022) Received from [facility] Social Connections Frequency of Communication with Friends and Family: Not on file Health Literacy: Not on file Functional Status: Prior to admission patient needed assistance: Dependent ADLs:: Bathing, Dressing, Grooming, Incontinence, Positioning, Transfers, Wheelchair-withassist, Toileting Dependent IADLs:: Cleaning, Cooking, Laundry, Shopping, Meal Preparation, Medication Management, Money Management, Transportation, Incontinence Mental Health Status: Chemical Dependency Status: Values/Beliefs: Spiritual, Cultural Beliefs, Latter Day Practices, Values that affect care: yes (Moravian) Additional Information: Per consult for discharge planning, met with patient to discuss discharge planning. Per patient, she and her spouse, who has dementia, live with their daughter in her daughter's home. Per patient, she is mostly bed bound but is able to get into a wheelchair with assist of 1 and dustin lift. Patient shared that her daughter is also her paid TIME RECORDER. Patient stated that she is open to [facility] 2x week wound care & cristobal catheter exchange once a month and FIGURINE MAKER services. Patient is also open to [facility] and has an SANDY the see pt once a week and oversees her wound care orders. Patient shared her wound care is 3x week, but if dressing becomes soiled, her daughter does the wound care. Patient shared that a friend and niece also assist with her care. Called [facility] and Intake confirmed that pt is open to Skilled RN & FIGURINE MAKER and requested discharge orders faxed to [phone]. Called [facility] and spoke to Lady. Lady confirmed pt is seen by an SANDY once a week for wound care and requsted face sheet and discharge orders with wound care orders faxed to [phone]. Inpatient Documentation Clerk will continue follow for discharge planning. Yaima Roman RN Yaima Roman RN, BSN, OCN Inpatient Care Coordination [address] Office: [phone] * Leela Degroot APRN EMERGENCY SERVICES PROFESSIONAL - 05/12/2024 12:33 PM CDTAssociated Order(s): PAIN MANAGEMENT ADULT IP CONSULT Images from the original note were not included. [facility] ACUTE PAIN SERVICE CONSULTATION [facility] ngmoco Console Leela Date of Admission: 05/10/2024 Date of Consult (When I saw the patient): 05/12/24 Assessment/Plan: Prerna Major is a 78 year old female who was admitted on 05/10/2024. I was asked to see the patient by Noemí Bhat MD for pain management of chronic sacral, right buttocks and right ischial tuberosity decubitus ulcer with concerns for sepsis due to decubitus ulcer and osteomyelitis of sacral decub with pain type musculoskeletal. Patient has a long 20+ year history of decubitus ulcers in setting of transverse myelitis, paraplegia, neurogenic bladder, obstructive sleep apnea, and HFpEF, atrial fibrillation, hypertension gastric ulcers. Patient admitted following a discharge from hospital 04/05/2024 with same concerns but no evidence of osteomyelitis at that time. Describes pain as with numeric rating of 8/10. The patient denies excess sedation, chest pain, shortness of breath, fever, chills dysuria. Denies constipation but has stool burden in colon. The patient does not smoke and no chemical dependency history. Opioid tolerance is low. Other factors that increase patient risk ofof unintended adverse events related to opioid use include:age, fragility, HUI. Interdisciplinary Patient has been seen by infectious disease, wound care, general surgery on 05/11/2021 recommending loop: Ostomy to promote wound healing does not recommend debridement of ulcers at this time ID note indicates poor concerns for efficacy of just oral antibiotics without wound closure Relevant labs and imaging reviewed noting. Urine suspect for urinary tract infection urine cultures pending. Blood cultures pending no growth [address] chest and abdomen 05/10/2024 Multiple decubitus ulcers, with CT findings suspicious for acute osteomyelitis involving the coccyx, and chronic osteomyelitis involving the right ischium. No drainable fluid collections. 2 Non-obstructing right renal pelvis stones, including 13 mm right UPJ calculus. 3. Anal wall thickening is likely related to chronic inflammation. 4 Rectal fecal burden w/o bowel obstruction Opioid Induced Respiratory Depression Risk: Moderate CrCl 131.1 mL/min (A) (based on SCr of 0.29 mg/dL (L)). MNPMP pulled from system on 05/12/24. No controlled substance in the past 12 months, but patient stated receives from her PcP Prerna Major has used the following opioids in the this past 24 hours in the form of oral oxycodone 2.5 mg (1), 5 mg (1) 7.5 mg (3), IV 0 mg. Prerna Major Has used in the past 24 hours adjuvants of gabapentin 300 mg (3) PLAN: 1) Pain is consistent with musculoskeletal, secondary to sepsis of probable osteomyelitis sacral and hip area, in the setting of multiple comorbid conditions. Treatment plan includes multimodal pain approach, medications as listed below, reviewed. Discharge medications, advised keeping track of doses, educated on tapering off as pain improves, watch for constipation and stool softeners, no driving or alcohol with opioids, store medications in a safe place, advised to take no more than the prescribed dose as increased doses may cause respiratory depression or . Patient is understanding ofthe plan. All questions and concerns addressed to patient's satisfaction. 2)Multimodal Medication Therapy Topical: lidocaine uroget with decuitus care and q4 hrs prn, Lidocaine patch 4%, and Diclofenac gelApply to areas surrounding decubiti. Adjuvants:Tylenol 650 mg every 6 hrs , Hydroxyzine consider later Muscle relaxer's not indicated. Gapapentin increased from 300 mg tid to 400 mg tid, naproxen 375 mg w/food tid Could consider compound topical but may be cost prohibitive at discharge Antidepressants/anxiolytics: none Opioids:Oxycodonechange from 5-7.5 mg every 4 hrs prn to 7.5-10 mg Q4 prn IV Pain medication: not indicated 3) Non-medication interventions- Ice, Heat, physical therapy, distraction aroma therapy. Wound management 4) Interdisciplinary team care infectious disease, wound care, care coordination 5)Constipation Prophylaxis- senna and miralax. Continue to monitor. 6) Follow up -acute pain team will continue to follow -Opioid prescriber has been Pcp. PCP is Flo Mckeon. -Discharge Recommendations - We recommend prescribing the following at the time of discharge: TBD for opioid management Resume gabapentin home dose Naproxen sodium, acetaminophen as over the counter Disposition: Prior living arrangement with home care Prescribing at discharge: Hospitalist Prescribing at discharge: History of Present Illness (HPI): Prerna Major is a 78 year old female with a past medical history noted above and presents with concerns for osteomyelitis and sepsis of decubitus wounds which are chronic in nature for the past 20 years. The patient reports pain that is located over the buttocks, coccyx right ischial tuberosity and right buttocks and radiates to inguinal area. Alleviating factors include unable to state per patient and exacerbates include medication. Current pain is rated at 8/10 and goal is 4/10. The patient has a moderate opioid tolerance. Opioid induced side effects including sedation, respiratory suppression, nausea, and constipation. Discussed multimodal interventions as well as other than systemic pharmacologic treatments for acute and chronic pain . Review of medical record/Summary of labs and care everywhere as part of comprehensive review. Past pain treatments have include medical management, wound care, rehabilitation, medication trialsinclude acetaminophen, oxycodone, ketorolac, ibuprofen tramadol. Presently on gabapentin. UDS No results found for: UAMP, UBARB, UCANN, UCOC, OPIT, UPCP Medical History has a past medical history of Arthritis, Decubitus ulcer of right ischial area, Gastric ulcer, History of transverse myelitis, MRSA (methicillin resistant Staphylococcus aureus) (12/02/2013), Neurogenic bladder, Paraplegia, Paroxysmal atrial fibrillation, RA (rheumatoid arthritis), and Sacral decubitus ulcer. Surgical History has a past surgical history that includes Egd. Allergies Allergies Allergen Reactions Piperacillin Other (See Comments), Anaphylaxis, Rash and Unknown Tolerated augmentin, ceftriaxone, meropenem Per SNF Per patient, has tolerated Augmentin Tazobactam Anaphylaxis, Unknown, Other (See Comments) and Rash Per SNF Vancomycin Anaphylaxis and Other (See Comments) Per SNF Current Home Medications Prior to Admission medications Medication Sig Start Date End Date Taking? Authorizing Provider acetaminophen (TYLENOL 8 HOUR ARTHRITIS PAIN) 650 MG CR tablet Take 1,300 mg by mouth 2 times dailyas needed for mild pain or fever Yes Unknown, Entered By History amoxicillin-clavulanate (AUGMENTIN) 875-125 MG tablet Take 1 tablet by mouth 2 times daily 05/07/24 05/13/24 Yes Unknown, Entered By History Ascorbic Acid (VITAMIN C PO) Take 500 mg by mouth every evening Yes Unknown, Entered By History furosemide (LASIX) 40 MG tablet Take 40 mg by mouth daily Yes Unknown, Entered By History gabapentin (NEURONTIN) 300 MG capsule Take 300 mg by mouth 3 times daily Yes Unknown, Entered By History lactobacillus rhamnosus, GG, (CULTURELL) capsule Take 1 capsule by mouth daily Yes Unknown, EnteredBy History metoprolol succinate ER (TOPROL XL) 100 MG 24 hr tablet Take 1 tablet (100 mg) by mouth daily Patient taking differently: Take 50 mg by mouth daily 03/15/24 Yes Dain Barnes MD metroNIDAZOLE (FLAGYL) 500 MG tablet Take 500 mg by mouth 3 times daily 05/07/24 05/13/24 Yes Unknown,Entered By History naproxen sodium (ANAPROX) 220 MG tablet Take 220 mg by mouth daily (with breakfast) Yes Unknown, Entered By History oxyCODONE (ROXICODONE) 5 MG tablet Take 7.5 mg by mouth every 4 hours as needed for severe pain YesUnknown, Entered By History predniSONE (DELTASONE) 5 MG tablet Take 10 mg by mouth daily Yes Unknown, Entered By History triamcinolone (KENALOG) 0.1 % external cream Apply topically 2 times daily as needed for irritationYes Unknown, Entered By History zinc sulfate (ZINCATE) 220 (50 Zn) MG capsule Take 220 mg by mouth every evening Yes Unknown, Entered By History Social History Reviewed, and she is living with daughter and receiving home care services. Family History- Reviewed care everywhere to find family history Nothing relevant to pain consult Reviewed, and family history is not on file. Review of Systems Complete ROS reviewed, unless noted , all other systems reviewed (with patient) and all others found to be negative. Objective: Vitals: B/P: 113/56, T: 98.1, P: 82, R: 18 Weight: 131 lbs 6.31 oz Body mass index is 25.66 kg/m??. Physical Exam: General Appearance: Alert, cooperative, no distress, appears stated age, grooming good. Patient is able communicate needs. Head: Normocephalic, without obvious abnormality, atraumatic Eyes: Pupils are mid position normal size ENT/Throat: Lips and mouth are moist Lymph/Neck: Supple, symmetrical, trachea midline, no adenopathy, thyroid: not enlarged, symmetric Lungs: Clear to auscultation bilaterally, respirations unlabored Chest Wall: No tenderness or deformity Cardiovascular/Heart: Regular rate and rhythm, S1, S2 edema Abdomen: Soft, non-tender, bowel sounds active all four quadrants, no masses, no organomegaly Musculoskeletal: Extremities normal, atraumatic Incision none Skin: Skin color good, lesions noted above Neurologic Affect: Alert and oriented X 3, Moves all 4 extremities euthymic, abberant pain behaviors No Imaging Reviewed Personally By Myself Results for orders placed or performed during the hospital encounter of 05/10/24 CT Chest/Abdomen/Pelvis w Contrast Impression IMPRESSION: 1. Multiple decubitus ulcers, with CT findings suspicious for acute osteomyelitis involving the coccyx, and chronic osteomyelitis involving the right ischium. No drainable fluid collections. 2. Cristobal catheter within the vagina. 3. Nonobstructing right renal pelvis stones, including 13 mm right UPJ calculus. 4. Anal wall thickening is likely related to chronic inflammation. Follow-up advised to exclude underlying lesions. Tube/Catheter positioning was called to [place] PA-C by Dr. Rai Lock on 05/10/2024 5:18 PM CDT. Labs Reviewed Personally By Myself Sodium Date Value Ref Range Status 05/11/2024 138 135 - 145 mmol/L Final 12/14/2013 137 133 - 144 mmol/L Final Potassium Date Value Ref Range Status 05/11/2024 4.1 3.4 - 5.3 mmol/L Final 12/14/2013 4.2 3.4 - 5.3 mmol/L Final Chloride Date Value Ref Range Status 05/11/2024 106 98 - 107 mmol/L Final 12/14/2013 96 94 - 109 mmol/L Final Carbon Dioxide Date Value Ref Range Status 12/14/2013 40 (H) 20 - 32 mmol/L Final Carbon Dioxide (CO2) Date Value Ref Range Status 05/11/2024 25 22 - 29 mmol/L Final Anion Gap Date Value Ref Range Status 05/11/2024 7 7 - 15 mmol/L Final 12/14/2013 1 (L) 6 - 17 mmol/L Final Glucose Date Value Ref Range Status 05/11/2024 199 (H) 70 - 99 mg/dL Final 12/14/2013 95 60 - 99 mg/dL Final GLUCOSE BY METER POCT Date Value Ref Range Status 03/09/2024 171 (H) 70 - 99 mg/dL Final Urea Nitrogen Date Value Ref Range Status 05/11/2024 12.0 8.0 - 23.0 mg/dL Final 12/14/2013 27 7 - 30 mg/dL Final Creatinine Date Value Ref Range Status 05/11/2024 0.29 (L) 0.51 - 0.95 mg/dL Final 12/14/2013 0.37 (L) 0.52 - 1.04 mg/dL Final GFR Estimate Date Value Ref Range Status 05/11/2024 >90 >60 mL/min/1.73m2 Final Comment: eGFR calculated using 2020 CKD-EPI equation. 12/14/2013 >90 >60 mL/min/1.7m2 Final Calcium Date Value Ref Range Status 05/11/2024 8.4 (L) 8.8 - 10.4 mg/dL Final Comment: Reference intervals for this test were updated on 04/27/2024 to reflect our healthy population more accurately. There may be differences in the flagging of prior results with similar values performed with this method. Those prior results can be interpreted in the context of the updated reference intervals. 12/14/2013 7.4 (L) 8.5 - 10.4 mg/dL Final Critical medical decision making: High risk medication use Yes, High risk medication monitoring Yes, Relevant labs,imaging notes reviewed by me? Yes Patient education on pain plan? Yes Please see A&P for additional details of medical decision making. Medical complexity over the past 24 hours: - Prescription DRUG MANAGEMENT performed - opioid management increased, added topicals, NSAIDS and increased gabapentin 60 MINUTES SPENT BY ME on the date of service doing chart review, history, exam, documentation & further activities per the note. I communicated with the hospitalist providing the pain plan care today? Yes I communicated with the bed side nurse on pian plan of care? Yes Thank you for this consultation in the care of Prerna Major. Leela Degroot RN, PGMT-BC ELECTRICIAN ASSISTANT,EMERGENCY SERVICES PROFESSIONAL, ACHPN Acute Pain Team ( [facility], [facility], [facility]) 8-4:30 after 3:30 page fish house worker No weekend coverage Securely message with the [employer] (learn more here) * Yaritza Hurtado MD - 05/11/2024 12:00 PM CDTAssociated Order(s): SURGERY GENERAL IP CONSULT [facility] Consult Note - General Surgery Service Date of Admission: 05/10/2024 Consult Requested by: Dr. Meadows Reason for Consult: sacral wounds Assessment & Plan: Surgery Prerna Major is a 78 year old female with sacral ulcers. Sacral wounds do not appear infected. No surgical debridement required. WOC is consulted. I do recommend loop colostomy to help with wound healing. I spoke to the patient about this. She requested I speak to her daughter about this option tomorrow. Drains: PRESENT - May have additional drains, review Avatar Code Status: No CPR- Do NOT Intubate Clinically Significant Risk Factors Present on Admission # Hypokalemia: Lowest K = 3.3 mmol/L in last 2 days, will replace as needed # Hypocalcemia: Lowest Ca = 8.4 mg/dL in last 2 days, will monitor and replace as appropriate # Hypoalbuminemia: Lowest albumin = 3.2 g/dL at 05/10/2024 2:44 PM, will monitor as appropriate # Acute Respiratory Failure: Documented O2 saturation < 91%. Continue supplemental oxygen as needed # Anemia: based on hgb <11 # DMII: A1C = 6.6 % (Ref range: <5.7 %) within past 6 months # Overweight: Estimated body mass index is 25.66 kg/m?? as calculated from the following: Height as of this encounter: 1.524 m (5'). Weight as of this encounter: 59.6 kg (131 lb 6.3 oz). Yaritza Hurtado MD [facility] Non-urgent messages: Securely message with [facility] (more info) Text page via [facility] Paging/Directory Chief Complaint Pain from sacral wounds History is obtained from the patient and medical record History of Present Illness Prerna Major is a 78 year old female with chronic osteomeyleitis, decubitus ulcers, transverse myelitis, and paraplegia who presented with weakness. Patient has been treated in the last few months for septic shock due to stage IV sacral ulcers. Patient complains of pain from her sacral wounds, but states it has gotten better since admission. Past Medical History Past Medical History: Diagnosis Date Arthritis Decubitus ulcer of right ischial area Gastric ulcer History of transverse myelitis MRSA (methicillin resistant Staphylococcus aureus) 12/02/2013 Blood Neurogenic bladder Paraplegia Paroxysmal atrial fibrillation RA (rheumatoid arthritis) Sacral decubitus ulcer Past Surgical History Past Surgical History: Procedure Laterality Date EGD Prior to Admission Medications Medications Prior to Admission Medication Sig Dispense Refill Last Dose acetaminophen (TYLENOL 8 HOUR ARTHRITIS PAIN) 650 MG CR tablet Take 1,300 mg by mouth 2 times dailyas needed for mild pain or fever 05/09/2024 amoxicillin-clavulanate (AUGMENTIN) 875-125 MG tablet Take 1 tablet by mouth 2 times daily 05/09/2024 Ascorbic Acid (VITAMIN C PO) Take 500 mg by mouth every evening 05/09/2024 furosemide (LASIX) 40 MG tablet Take 40 mg by mouth daily 05/09/2024 gabapentin (NEURONTIN) 300 MG capsule Take 300 mg by mouth 3 times daily 05/09/2024 lactobacillus rhamnosus, GG, (CULTURELL) capsule Take 1 capsule by mouth daily Past Week metoprolol succinate ER (TOPROL XL) 100 MG 24 hr tablet Take 1 tablet (100 mg) by mouth daily (Patient taking differently: Take 50 mg by mouth daily) 30 tablet 0 05/09/2024 metroNIDAZOLE (FLAGYL) 500 MG tablet Take 500 mg by mouth 3 times daily 05/09/2024 naproxen sodium (ANAPROX) 220 MG tablet Take 220 mg by mouth daily (with breakfast) Past Week oxyCODONE (ROXICODONE) 5 MG tablet Take 7.5 mg by mouth every 4 hours as needed for severe pain 05/10/2024 predniSONE (DELTASONE) 5 MG tablet Take 10 mg by mouth daily 05/09/2024 triamcinolone (KENALOG) 0.1 % external cream Apply topically 2 times daily as needed for irritationat prn zinc sulfate (ZINCATE) 220 (50 Zn) MG capsule Take 220 mg by mouth every evening 05/09/2024 Review of Systems The 10 point Review of Systems is negative other than noted in the HPI or here. Social History I have reviewed this patient's social history and updated it with pertinent information if needed. Family History No significant family history Allergies Allergies Allergen Reactions Piperacillin Other (See Comments), Anaphylaxis, Rash and Unknown Tolerated augmentin, ceftriaxone, meropenem Per SNF Per patient, has tolerated Augmentin Tazobactam Anaphylaxis, Unknown, Other (See Comments) and Rash Per SNF Vancomycin Anaphylaxis and Other (See Comments) Per SNF Physical Exam Vital Signs: Temp: 98.3 ??F (36.8 ??C) Temp src: Oral BP: 106/49 Pulse: 73 Resp: 16 SpO2: 100 % O2 Device: Nasal cannula Oxygen Delivery: 3 LPM Weight: 131 lbs 6.31 oz Intake/Output Summary (Last 24 hours) at 05/11/2024 1606 Last data filed at 05/11/2024 0400 Gross per 24 hour Intake -- Output 225 ml Net -225 ml Gen: cachectic Neuro: Awake, alert, responds to questions appropriately, follows commands Sacral wounds: 3 wounds noted surrounding the anus. Stage four wounds. No signs of purulence, no necrotic tissue, no infection Medical Decision Making 30 MINUTES SPENT BY ME on the date of service doing chart review, history, exam, documentation & further activities per the note. Data I have personally reviewed the following data over the past 24 hrs: 13.4 (H) \ N/A / N/A 138 106 12.0 / 199 (H) 4.1 25 0.29 (L) \ Procal: N/A CRP: N/A Lactic Acid: N/A Imaging results reviewed over the past 24 hrs: Recent Results (from the past 24 hour(s)) CT Chest/Abdomen/Pelvis w Contrast Narrative EXAM: CT CHEST/ABDOMEN/PELVIS W CONTRAST LOCATION: [facility] DATE: 05/10/2024 INDICATION: Fever, paraplegia, abdominal pain [...] right presacral space. Subcutaneous gas and skin thickeningnoted. No drainable fluid collections. Generalized osteopenia limits exam. Previous thoracal lumbar stabilization with multilevel scoliosis and spondylosis. There is poor definition of the posterior cortex of the sacrococcygeal region adjacent to thedecubitus ulcer suspicious for developing osteomyelitis. Irregularity of the right ischium noted, with associated chronic bony sclerosis, as well as periosteal reaction compatible with chronic osteomyelitis. Soft tissue overlying the left ischium noted without fluid collections or associated bony destruction/sclerosis. Advanced degenerative changes in the right shoulder with moderate changes in the left shoulder and both hips. Impression IMPRESSION: 1. Multiple decubitus ulcers, with CT findings suspicious for acute osteomyelitis involving the coccyx, and chronic osteomyelitis involving the right ischium. No drainable fluid collections. 2. Cristobal catheter within the vagina. 3. Nonobstructing right renal pelvis stones, including 13 mm right UPJ calculus. 4. Anal wall thickening is likely related to chronic inflammation. Follow-up advised to exclude underlying lesions. Tube/Catheter positioning was called to Chago Meadows PA-C by Dr. Rai Lock on 05/10/2024 5:18 PM CDT. * Johanny Harrison RN - 05/11/2024 10:39 AM CDTAssociated Order(s): WOUND OSTOMY CONTINENCE NURSE IP CONSULT Images from the original note were not included. [facility] WO Nurse Inpatient Assessment Consulted for: Wound acute on chronic osteomyelitis Summary: patient with POA wounds to buttock x3 stage 4, initial wo visit 05/11 Patient History (according to provider note(s): 78 year old female with medical history of history of transverse myelitis, paraplegia, neurogenic bladder with chronic indwelling Cristobal catheter, decubitus ulcers with chronic osteomyelitis, RA on chronic prednisone therapy, HUI, HFpEF, atrial fibrillation, hypertension, gastric ulcer presented tothe ED with weakness. Assessment: Areas visualized during today's visit: Focused: and Sacrum/coccyx Wound location: buttock, coccyx right ischial tuberosity and right buttock Right IT view Right buttock view Coccyx view Buttock view Last photo: 05/11 Wound due to: Pressure Injury x3 stage 4 per historical charting POA Wound history/plan of care: patient reports she has been wheelchair dependent since she was 6 yearsold, denies desire for colostomy, describes history of using different wound modalities including wound vac and vashe, states decreased desire to use wound vac due to previous cumbersome management, informs staff her daughter helps with her cares, states she uses a hospital bed at home and wheelchair with a cushion which is 2 years old, describes having a poor appetite recently Wound base: granulation tissue, non-granular tissue, and suspected biofilm to visible wound bases Palpation of the wound bed: normal Drainage: moderate to large Description of drainage: serous and serosanguinous Measurements (length x width x depth, in cm): coccyx 3.5cm x 3cm x 3.5cm, right buttock 2.5cm x 4.5cm x 10.5cm, right IT 2.5cm x 2.5cm x 2.5cm Tunneling: N/A Undermining: N/A Periwound skin: Intact Color: normal and consistent with surrounding tissue Temperature: normal Odor: mild Pain: moderate and severe, 7/10 Pain interventions prior to dressing change: pain reported in person to provider and primary RN Treatment goal: Heal per patient stated goal STATUS: initial assessment Supplies ordered: ordered through [employer] from pharmacy, supplies stored on unit, and discussed with RN Treatment Plan: 05/11/24 1027 sodium hypochlorite (DAKINS half-strength) external solution Start: 05/11/24 1030, Irrigation, 2 TIMES DAILY, Routine Admin Instructions: Use with wound cares BID to buttock wounds x3 for cleansing and application to gauze for wound packing 05/11/24 1027 Skin care precautions Start: 05/11/24 1026, EFFECTIVE NOW, Routine Comments: Pressure Injury Prevention (PIP) Plan: If patient is declining pressure injury prevention interventions: Explore reason why and address patient's concerns, Educate on pressure injury risk and prevention intervention(s), If patient is still declining, document informed refusal , and Ensure Care team is aware ( provider, charge nurse, etc) Mattress: Follow bed algorithm, reassess daily and order specialty mattress, if indicated. HOB: Maintain at or below 30 degrees, unless contraindicated Repositioning in bed: Every 1-2 hours , Left/right positioning; avoid supine, and Raise foot of bedprior to raising head of bed, to reduce patient sliding down (shear) Heels: Keep elevated off mattress and Pillows under calves Protective Dressing: wound care orders for buttock. Mepilex for protection to other areas Positioning Equipment: as needed Fluidized positioner (#[id number] or #[id number]) to help maintain side lying position. Chair positioning: Chair cushion (#[id number]) , Assist patient to reposition hourly, and Do NOT use a donut for sitting (this increases pressure to smaller area and creates a higher potential for injury) If patient has a buttock pressure injury, or high risk for PI use chair cushion or SPS. Moisture Management: Perineal cleansing /protection: Follow Incontinence Protocol, Avoid brief in bed, Clean and dry skin folds with bathing , and Moisturize dry skin Under Devices: Inspect skin under all medical devices during skin inspection , Ensure tubes are stabilized without tension, and Ensure patient is not lying on medical devices or equipment when repositioned Ask provider to discontinue device when no longer needed. Wound care Start: 05/11/24 1800, 2 TIMES DAILY, Routine Comments: Location: buttock x3 (right IT) Care: provided BID and PRN for soiling by primary RN 1. Remove dressings 2. Cleanse and Irrigate the wounds and periwound skin with Dakins solution per MAR BID (sodium hypochlorite DAKINS half-strength external solution), irrigate and flush the wounds with the solution, wet 4x4 gauze and scrub in gentle circles. Then pat dry 3. Apply skin prep (3M no sting skin barrier film or sure prep) to wound edges and periwound skin, let dry 4. Wet some rosy roll gauze or kerlix with Dakins solution, use a cotton tipped applicator to tuckinto wound bases for packing, do NOT over pack - this will cause pain and tissue damage, do pack the moist gauze all the way to the base or deepest part of the wound 5. Secure with 4x4 mepilex, ok to use each up to 5 days or until drainage is saturating the foam touching three corners, ok to lift for routine skin assessments 05/11/24 1026 Nutrition Services Adult IP Consult ONE TIME Complete References: Medical Nutrition Therapy policy and MNT protocol Provider: (Not yet assigned) Question Answer Comment Reason for Consult: RN Consult - specify Reason Reason for Consult: wound healing support needs Orders: Written RECOMMEND PRIMARY TEAM ORDER: None, at this time (discussed with provider, will be placing surgical consult for coverage) Education provided: importance of repositioning, plan of care, wound progress, Infection prevention, Moisture management, Hygiene, and Off-loading pressure Discussed plan of care with: Patient, Nurse, and Physician [facility] nurse follow-up plan: weekly Notify [facility] if wound(s) deteriorate. Nursing to notify the Provider(s) and re-consult the [facility] Nurse if new skin concern. DATA: Current support surface: Standard Low air loss (MARSHALL pump, Isolibrium, Pulsate) Containment of urine/stool: Incontinence Protocol, Incontinent pad in bed, and Indwelling catheter BMI: Body mass index is 25.66 kg/m??. Active diet order: Orders Placed This Encounter Combination Diet Regular Diet Adult Output: I/O last 3 completed shifts: In: 400 [I.V.:400] Out: 225 [Urine:225] Labs: Recent Labs Lab 05/10/24 1444 ALBUMIN 3.2* HGB 10.3* WBC 15.6* Pressure injury risk assessment: Sensory Perception: 3-->slightly limited Moisture: 3-->occasionally moist Activity: 1-->bedfast Mobility: 2-->very limited Nutrition: 3-->adequate Friction and Shear: 1-->problem Brandon Score: 13 Johanny JUSTICEOCTaj 1st choice: Securely message with [facility] ([facility]) (2nd option: [facility] Office , messages checked periodically Mon- Fri 8a-4p) * Norman Liu RD - 05/11/2024 10:30 AM CDTAssociated Order(s): NUTRITION SERVICES ADULT IP CONSULT CLINICAL NUTRITION SERVICES - ASSESSMENT NOTE Recommendations Ordered by Registered Dietitian (RD): Encouraged po intake, emphasizing the importance of protein for wound healing Ensure Max @ 2 pm (rotate flavors) Expedite w/ lunch multivitamin with minerals Continue Regular diet Malnutrition: Patient does not meet two of the above criteria necessary for diagnosing malnutrition REASON FOR ASSESSMENT Prerna Major is a 78 year old female seen by Registered Dietitian for RN Consult - wound healing support needs (Ambar Joseph MD) PMH of: Arthritis, Decubitus ulcer of right ischial area, Gastric ulcer, History of transverse myelitis, MRSA (methicillin resistant Staphylococcus aureus) (12/02/2013), Neurogenic bladder, Paraplegia, Paroxysmal atrial fibrillation, RA (rheumatoid arthritis), and Sacral decubitus ulcer NUTRITION HISTORY - Information obtained from chart review and pt in bed, who was very sweet - Patient is on a regular diet at home and is aware of increased proteins needs - Typical food/fluid intake is - 2 meals per day, usually a breakfast and early dinner. Sometimes she has a small lunch like hummus and veggies. - Diet history - she was eating regularly BUSINESS MANAGEMENT CONSULTANT - Supplements - She does a Premier Protein at home and preferred an Ensure Max over Enlive. She wasalso agreeable to a an Expedite w/ lunch CURRENT NUTRITION ORDERS Diet Order: Regular Current Intake/Tolerance: - Flowsheets show a fair appetite and she ordered lunch today, which she enjoyed NUTRITION FOCUSED PHYSICAL ASSESSMENT FOR DIAGNOSING MALNUTRITION) Yes Observed: No nutrition-related physical findings observed Obtained from Chart/Interdisciplinary Team: Pressure Injury x3 stage 4 05/11 WOCN, Wound location: buttock, coccyx right ischial tuberosity and right buttock, Wound due to: Pressure Injury x3 stage 4 per historical charting POA Wound history/plan of care: patient reports she has been wheelchair dependent since she was 6 yearsold, denies desire for colostomy, describes history of using different wound modalities including wound vac and vashe, states decreased desire to use wound vac due to previous cumbersome management, informs staff her daughter helps with her cares, states she uses a hospital bed at home and wheelchair with a cushion which is 2 years old, describes having a poor appetite recently STATUS: initial assessment ANTHROPOMETRICS Height: 5' 0 Weight: 131 lbs 6.31 oz Body mass index is 25.66 kg/m??. Weight Status: Overweight BMI 25-29.9 IBW: 45.5 kg % IBW: 130% Weight History: 9% in 2 months Wt Readings from Last 10 Encounters: 05/10/24 59.6 kg (131 lb 6.3 oz) 03/14/24 65.3 kg (143 lb 15.4 oz) 12/12/13 64.9 kg (143 lb) LABS BG 199 (H), MEDICATIONS Lasix (held), Culturelle, vitamin C, zinc sulfate, ASSESSED NUTRITION NEEDS PER APPROVED PRACTICE GUIDELINES: Dosing Weight 59.6 kg (actual) Estimated Energy Needs: 8869-7234 kcals (25-30 Kcal/Kg) Justification: maintenance, wound healing Estimated Protein Needs: 78-89 grams protein (1.3-1.5 g pro/Kg) Justification: wound healing Estimated Fluid Needs: 2589-6112 mL (1 mL/Kcal) Justification: maintenance MALNUTRITION: % Weight Loss: > 7.5% in 3 months (severe malnutrition) - 9% in 2 months % Intake: No decreased intake noted, per pt report Subcutaneous Fat Loss: None observed Muscle Loss: Clavicle bone region mild depletion Fluid Retention: None noted Malnutrition Diagnosis: Patient does not meet two of the above criteria necessary for diagnosing malnutrition NUTRITION DIAGNOSIS: Inadequate protein intake related to increased needs (protein) for wound healing as evidenced by active wounds, need for >1.3 g/kg/day protein and oral nutrition supplements to help pt meet protein needs. NUTRITION INTERVENTIONS Recommendations / Nutrition Prescription Encouraged po intake, emphasizing the importance of protein for wound healing Ensure Max @ 2 pm (rotate flavors) Expedite w/ lunch multivitamin with minerals Continue Regular diet Implementation Nutrition education: Per Provider order if indicated General/healthful diet, Medical Food Supplement, and Multivitamin/Mineral Nutrition Goals PO - >75% meal trays BID and 100% nutrition supplements BID MONITORING AND EVALUATION: Progress towards goals will be monitored and evaluated per protocol and Practice Guidelines Norman Liu RD, LD * Adeline Varela MD - 05/11/2024 9:38 AM CDTAssociated Order(s): INFECTIOUS DISEASES IP CONSULT Images from the original note were not included. [facility] Infectious Disease Consultation Date of Admission: 05/10/2024 Date of Consult: 05/11/24 Assessment: 78 YF with transverse myelitis, paraplegia, neurogenic bladder with chronic indwelling Cristobal catheter, chronic decubitus ulcers with chronic osteomyelitis and hospitalization in February for sepsis, RA onchronic prednisone therapy among other medical conditions, who has been hospitalized with weakness and concern for sepsis related to infected decubitus ulcers -Sepsis related to infected decubitus ulcers -Acute osteomyelitis of the coccyx -Recent history of alice albicans blood stream infection 03/21/2024 related to fungal urinary tract infection -Chronic osteomyelitis of the right ischium -Hx of E.coli and lactobacillus bacteremia with septic shock requiring hospitalization at [facility] -Chronic medical conditions -HUI, HFpEF, atrial fibrillation, hypertension, gastric ulce Recommendations Patient has had chronic decubitus ulcers for > [address] shows acute osteomyelitis of the coccyx, but pt is unlikely to benefit from a prolonged course of IV antibiotics without wound closure or debridement. Surgical consultation Follow blood and urine cxs and maintain on IV antibiotics for now Wound care Discontinue Linezolid Treat with Ceftriaxone, Daptomycin and oral Metronidazole Please call ID with dressing change tomorrow Adeline Vraela MD Reason for Consult Reason for consult: I was asked to evaluate this patient for Infected decubitus ulcer with osteomyelitis. Primary Care Physician Flo Mckeon Chief Complaint Weakness History is obtained from the patient and medical records History of Present Illness Prerna Major is a 78 year old female with transverse myelitis, paraplegia, neurogenic bladder with chronic indwelling Cristobal catheter, chronic decubitus ulcers with chronic osteomyelitis and hospitalization in February for sepsis, RA on chronic prednisone therapy among other medical conditions, who has been hospitalized with weakness and concern for sepsis related to infected decubitus ulcers Patient has had chronic wounds for > 20 years and has had recurrent complications for infectiouscomplications including urinary tract infections, bacteremia and infected wounds with osteomyelitis. Most recently was admitted to [facility] with candidal albicans bacteremia and was admitted to [facility] for E.coli septic shock in February. Today patient also complains of abdominal tenderness and some diarrhea She has remained afebrile here, had leukocytosis of 15.6K on admission, blood and urine cxs are pending and CT abdomen pelvis showed Multiple decubitus ulcers, with CT findings suspicious for acute osteomyelitis involving the coccyx, and chronic osteomyelitis involving the right ischium. No drainable fluid collections. Patient has been maintained on Linezolid, Ceftriaxone and Metronidazole and ID has been asked to assist with antibiotic management Past Medical History I have reviewed this patient's medical history and updated it with pertinent information if needed. Past Medical History: Diagnosis Date Arthritis Decubitus ulcer of right ischial area Gastric ulcer History of transverse myelitis MRSA (methicillin resistant Staphylococcus aureus) 12/02/2013 Blood Neurogenic bladder Paraplegia Paroxysmal atrial fibrillation RA (rheumatoid arthritis) Sacral decubitus ulcer Past Surgical History I have reviewed this patient's surgical history and updated it with pertinent information if needed. Past Surgical History: Procedure Laterality Date EGD Prior to Admission Medications Prior to Admission Medications Prescriptions Last Dose Informant Patient Reported? Taking? Ascorbic Acid (VITAMIN C PO) 05/09/2024 Yes Yes Sig: Take 500 mg by mouth every evening acetaminophen (TYLENOL 8 HOUR ARTHRITIS PAIN) 650 MG CR tablet 05/09/2024 Yes Yes Sig: Take 1,300 mg by mouth 2 times daily as needed for mild pain or fever amoxicillin-clavulanate (AUGMENTIN) 875-125 MG tablet 05/09/2024 Yes Yes Sig: Take 1 tablet by mouth 2 times daily furosemide (LASIX) 40 MG tablet 05/09/2024 Yes Yes Sig: Take 40 mg by mouth daily gabapentin (NEURONTIN) 300 MG capsule 05/09/2024 Yes Yes Sig: Take 300 mg by mouth 3 times daily lactobacillus rhamnosus, GG, (CULTURELL) capsule Past Week Yes Yes Sig: Take 1 capsule by mouth daily metoprolol succinate ER (TOPROL XL) 100 MG 24 hr tablet 05/09/2024 No Yes Sig: Take 1 tablet (100 mg) by mouth daily Patient taking differently: Take 50 mg by mouth daily metroNIDAZOLE (FLAGYL) 500 MG tablet 05/09/2024 Yes Yes Sig: Take 500 mg by mouth 3 times daily naproxen sodium (ANAPROX) 220 MG tablet Past Week Yes Yes Sig: Take 220 mg by mouth daily (with breakfast) oxyCODONE (ROXICODONE) 5 MG tablet 05/10/2024 Yes Yes Sig: Take 7.5 mg by mouth every 4 hours as needed for severe pain predniSONE (DELTASONE) 5 MG tablet 05/09/2024 Yes Yes Sig: Take 10 mg by mouth daily triamcinolone (KENALOG) 0.1 % external cream at prn Yes Yes Sig: Apply topically 2 times daily as needed for irritation zinc sulfate (ZINCATE) 220 (50 Zn) MG capsule 05/09/2024 Yes Yes Sig: Take 220 mg by mouth every evening Facility-Administered Medications: None Allergies Allergies Allergen Reactions Piperacillin Other (See Comments), Anaphylaxis, Rash and Unknown Tolerated augmentin, ceftriaxone, meropenem Per SNF Per patient, has tolerated Augmentin Tazobactam Anaphylaxis, Unknown, Other (See Comments) and Rash Per SNF Vancomycin Anaphylaxis and Other (See Comments) Per SNF Immunization History There is no immunization history on file for this patient. Social History I have reviewed this patient's social history and updated it with pertinent information if needed. Prerna Major Family History I have reviewed this patient's family history and updated it with pertinent information if needed. No family history on file. Review of Systems The 10 point Review of Systems is negative Physical Exam Temp: 98.1 ??F (36.7 ??C) Temp src: Axillary BP: 122/52 Pulse: 107 Resp: 16 SpO2: 99 % O2 Device: BiPAP/CPAP Oxygen Delivery: 3 LPM Vital Signs with Ranges Temp: [97.7 ??F (36.5 ??C)-100.4 ??F (38 ??C)] 98.1 ??F (36.7 ??C) Pulse: [91-119] 107 Resp: [16-20] 16 BP: (93-163)/(35-82) 122/52 SpO2: [81 %-100 %] 99 % 131 lbs 6.31 oz Body mass index is 25.66 kg/m??. GENERAL APPEARANCE: awake EYES: Eyes grossly normal to inspection NECK: no adenopathy RESP: lungs clear CV: regular rates and rhythm ABDOMEN: soft, nontender SKIN: no suspicious lesions or rashes Data All laboratory data reviewed Component Latest Ref [facility] [place] 05/10/2024 2:46 PM Influenza A Negative Negative Influenza B Negative Negative Resp Syncytial Virus Negative Negative SARS CoV2 PCR Negative Negative Component Latest Ref [facility] [place] 05/10/2024 2:44 PM CRP Inflammation <5.00 mg/L 61.98 (H) CK Total 26 - 192 U/L 15 (L) Component Latest Ref [facility] [place] 05/10/2024 2:44 PM WBC 4.0 - 11.0 10e3/uL 15.6 (H) RBC Count 3.80 - 5.20 10e6/uL 4.08 Hemoglobin 11.7 - 15.7 g/dL 10.3 (L) Hematocrit 35.0 - 47.0 % 35.2 MCV 78 - 100 fL 86 MCH 26.5 - 33.0 pg 25.2 (L) MCHC 31.5 - 36.5 g/dL 29.3 (L) RDW 10.0 - 15.0 % 19.1 (H) Platelet Count 150 - 450 10e3/uL 287 Component Latest Ref Rng 05/10/2024 2:44 PM Sodium 135 - 145 mmol/L 140 Potassium 3.4 - 5.3 mmol/L 3.3 (L) Carbon Dioxide (CO2) 22 - 29 mmol/L 28 Anion Gap 7 - 15 mmol/L 10 Urea Nitrogen 8.0 - 23.0 mg/dL 16.0 Creatinine 0.51 - 0.95 mg/dL 0.26 (L) GFR Estimate >60 mL/min/1.73m2 >90 Calcium 8.8 - 10.4 mg/dL 8.8 Chloride 98 - 107 mmol/L 102 Glucose 70 - 99 mg/dL 93 Alkaline Phosphatase 40 - 150 U/L 101 AST 0 - 45 U/L 17 ALT 0 - 50 U/L 9 Protein Total 6.4 - 8.3 g/dL 5.2 (L) Albumin 3.5 - 5.2 g/dL 3.2 (L) Bilirubin Total <=1.2 mg/dL 0.4 Microbiology 05/10/2024 1448 05/11/2024 0331 Blood Culture Peripheral Blood [[id number]] Peripheral Blood Preliminary result Component Value Culture No growth after 12 hours P 05/10/2024 1446 05/10/2024 1608 Symptomatic Influenza A/B, RSV, & SARS-CoV2 PCR (COVID-19) Nasopharyngeal [[id number]] Swab from Nasopharyngeal Final result Component Value Influenza A PCR Negative Influenza B PCR Negative RSV PCR Negative SARS CoV2 PCR Negative Imaging EXAM: CT CHEST/ABDOMEN/PELVIS W CONTRAST LOCATION: [facility] DATE: 05/10/2024 INDICATION: Fever, paraplegia, abdominal pain [...] right presacral space. Subcutaneous gas and skin thickeningnoted. No drainable fluid collections. Generalized osteopenia limits exam. Previous thoracal lumbar stabilization with multilevel scoliosis and spondylosis. There is poor definition of the posterior cortex of the sacrococcygeal region adjacent to thedecubitus ulcer suspicious for developing osteomyelitis. Irregularity of [...] including 13 mm right UPJ calculus. 4. Anal wall thickening is likely related to chronic inflammation. Follow-up advised to exclude underlying lesions. documented in this encounter ED Notes * Jenn Junior RN - 05/10/2024 6:06 PM CDT [facility] ED Nurse Handoff Report ED Chief complaint: Wound Infection ED Diagnosis: Final diagnoses: Acute cystitis with hematuria Osteomyelitis of coccyx (H) Code Status: unknown Allergies: Allergies Allergen Reactions Piperacillin Anaphylaxis, Unknown, Other (See Comments) and Rash Tolerated augmentin, ceftriaxone, meropenem Per SNF Per patient, has tolerated Augmentin Per SNF Per patient, has tolerated Augmentin Tazobactam Anaphylaxis, Unknown, Other (See Comments) and Rash Per SNF Vancomycin Anaphylaxis and Other (See Comments) Per SNF Patient Story: Patient presents with abd cramping. Patient has chronic wounds and chronic cristobal use. Patient reports chills. Focused Assessment: source of possible infection Treatments and/or interventions provided: labs, radiology, antibiotics and pain meds Patient's response to treatments and/or interventions: tolerated well To be done/followed up on inpatient unit: antibtioics and wound care consult Does this patient have any cognitive concerns?: none Activity level - Baseline/Home: Unknown Activity Level - Current: bed bound Patient's Preferred language: Mauritian [employer] Needed?: No Isolation: None Infection: Not Applicable Patient tested for COVID 19 prior to admission: NO Bariatric?: No Vital Signs: Vitals: 05/10/24 1500 05/10/24 1530 05/10/24 1645 05/10/24 1700 BP: 126/46 136/56 125/57 119/49 Pulse: 111 100 112 Resp: Temp: TempSrc: SpO2: 99% 98% 97% (!) 81% Cardiac Rhythm: Was the PSS-3 completed: Yes What interventions are required if any? Family Comments: supportive family OBS brochure/video discussed/provided to patient/family: N/A Name of person given brochure if not patient: Relationship to patient: For the majority of the shift this patient's behavior was Green. Behavioral interventions performed were none. ED NURSE PHONE NUMBER: *[id number] * Simona Bashir RN - 05/10/2024 2:25 PM CDT Pt put on abx last Friday for wound infection. Pt sts she was getting abd cramping with abx and stopped taking yesterday. Pt c/o fever chills today * Chago Triplett RN - 05/10/2024 2:20 PM CDT Bed: ED09 Expected date: Expected time: Means of arrival: Comments: ems * Nemesio Davila MD - 05/10/2024 2:20 PM CDT Emergency Department Attending Supervision Note I evaluated this patient in conjunction with Chago Meadows PA-C. I have participated in the care of the patient and personally performed garcia elements of the history, exam, and medical decision making. HPI: Prerna Major is a 78 year old female who presents for evaluation of a wound infection. Patient reports that she had her wound cultured by her home nurse and they tested positive for bacterialinfection so she started a course of antibiotics 2 days ago but began experiencing discomfort and cramping across her abdomen yesterday. She also endorses nausea, headache, and dizziness. She had a cristobal catheter in place. Her last bowel movement was this morning and well formed. Patient denies anychest pain, shortness of breath, cough, or diarrhea. EXAM: BP 106/49 (BP Location: Right arm) Pulse 73 Temp 98.3 ??F (36.8 ??C) (Oral) Resp 16 Ht 1.524 m (5') Wt 59.6 kg (131 lb 6.3 oz) SpO2 100% BMI 25.66 kg/m?? General: Alert, appears well-developed and well-nourished. Cooperative. In mild distress HEENT: Head: Atraumatic Ears: External ears are normal Mouth/Throat: Oropharynx is without erythema or exudate and mucous membranes are moist. Eyes: Conjunctivae normal and EOM are normal. No scleral icterus. CV: Tachycardic rate, regular rhythm, normal heart sounds and radial pulses are 2+ and symmetric. No murmur. Resp: Breath sounds are clear bilaterally Non-labored, no retractions or accessory muscle use GI: Abdomen is soft, no distension, mild LUQ and LLQ tenderness. No rebound or guarding. No CVA tenderness bilaterally MS: No edema. Back atraumatic. No midline cervical, thoracic, or lumbar tenderness Skin: Warm and dry. Large decubitus ulcers x2 to right buttock and right hip. Neuro: Alert. Paraplegic, baseline neuro function Psych: Normal mood and affect. EKG 12-lead, tracing only Value Systolic Blood Pressure Diastolic Blood Pressure Ventricular Rate 103 Atrial Rate 103 NM Interval 144 QRS Duration 72 QT 340 QTc 445 P Thurman 65 R AXIS 25 T Thurman 50 Interpretation ECG Sinus tachycardia Possible left atrial enlargement When compared with ECG of 06-MAR-2024 04:53, No significant change Read by Nemesio Davila MD at 1552 Labs Ordered and Resulted from Time of ED Arrival to Time of ED Departure COMPREHENSIVE METABOLIC PANEL - Abnormal Result Value Sodium 140 Potassium 3.3 (*) Carbon Dioxide (CO2) 28 Anion Gap 10 Urea Nitrogen 16.0 Creatinine 0.26 (*) GFR Estimate >90 Calcium 8.8 Chloride 102 Glucose 93 Alkaline Phosphatase 101 AST 17 ALT 9 Protein Total 5.2 (*) Albumin 3.2 (*) Bilirubin Total 0.4 ROUTINE UA WITH MICROSCOPIC - Abnormal Color Urine Yellow Appearance Urine Slightly Cloudy (*) Glucose Urine Negative Bilirubin Urine Negative Ketones Urine 20 (*) Specific [place] Urine 1.026 Blood Urine Trace (*) pH Urine 5.0 Protein Albumin Urine 30 (*) Urobilinogen Urine Normal Nitrite Urine Negative Leukocyte Esterase Urine Large (*) Bacteria Urine Few (*) WBC Clumps Urine Present (*) Mucus Urine Present (*) RBC Urine 35 (*) WBC Urine 123 (*) Squamous Epithelials Urine <1 CBC WITH PLATELETS AND DIFFERENTIAL - Abnormal WBC Count 15.6 (*) RBC Count 4.08 Hemoglobin 10.3 (*) Hematocrit 35.2 MCV 86 MCH 25.2 (*) MCHC 29.3 (*) RDW 19.1 (*) Platelet Count 287 % Neutrophils 62 % Lymphocytes 26 % Monocytes 10 % Eosinophils 1 % Basophils 1 % Immature Granulocytes 1 NRBCs per 100 WBC 0 Absolute Neutrophils 9.7 (*) Absolute Lymphocytes 4.0 Absolute Monocytes 1.5 (*) Absolute Eosinophils 0.2 Absolute Basophils 0.1 Absolute Immature Granulocytes 0.1 Absolute NRBCs 0.0 LIPASE - Abnormal Lipase 11 (*) ISTAT GASES LACTATE VENOUS POCT - Abnormal Lactic Acid POCT 1.1 Bicarbonate Venous POCT 30 (*) O2 Sat, Venous POCT 62 (*) pCO2 Venous POCT 43 pH Venous POCT 7.45 (*) pO2 Venous POCT 31 Base Excess/Deficit (+/-) POCT 5.0 (*) CRP INFLAMMATION - Abnormal CRP Inflammation 61.98 (*) CK TOTAL - Abnormal CK 15 (*) INFLUENZA A/B, RSV, & SARS-COV2 PCR - Normal Influenza A PCR Negative Influenza B PCR Negative RSV PCR Negative SARS CoV2 PCR Negative CT Chest/Abdomen/Pelvis w Contrast Final Result IMPRESSION: 1. Multiple decubitus ulcers, with CT findings suspicious for acute osteomyelitis involving the coccyx, and chronic osteomyelitis involving the right ischium. No drainable fluid collections. 2. Cristobal catheter within the vagina. 3. Nonobstructing right renal pelvis stones, including 13 mm right UPJ calculus. 4. Anal wall thickening is likely related to chronic inflammation. Follow-up advised to exclude underlying lesions. Tube/Catheter positioning was called to Chago Meadows PA-C by Dr. Rai Lock on 05/10/2024 5:18 PM CDT. MEDICAL DECISION MAKING/ASSESSMENT AND PLAN: Patient is a 78-year-old female with a complex medical history pertinent for paraplegia secondary to transverse myelitis, MRSA, paroxysmal atrial fibrillation, rheumatoid arthritis, and chronic pressure ulcers who presents with abdominal pain and fever. A broad workup was ultimately pursued today had concerns for potential septic etiologies particularly with fever and tachycardia on arrival. Initial lactate returned at 1.1 and lower suspicion for severe sepsis. Patient did have a leukocytosis although has historically had elevated white blood cell count and has also had prior history of osteomyelitis. CT scan of chest abdomen pelvis is obtained to evaluate for potential septic etiologies and thankfully no intrathoracic abnormalities concerning for pneumonia. Within the abdomen and pelvis there was concern for osteomyelitis involving the coccyx as well as chronic osteomyelitis involving the right ischium without evidence of drainable fluid collections or abscesses. Given the complexityof the patient's osteomyelitis she may be better served at a tertiary care facility such as the [facility] although no beds readily available at that institution. Will plan for broad-spectrum antibiotics at this time and admission for both concerns of acute cystitis as well as osteomyelitis of the coccyx and chronic osteomyelitis of the right ischium. Case discussed with hospital service who agreed admission. Patient remained hemodynamically stable while in the emergency department. DIAGNOSIS: ICD-10-CM 1. Acute cystitis with hematuria N30.01 2. Osteomyelitis of coccyx (H) M46.28 DISPOSITION: Admitted Scribe Disclosure: Slime Garcia, karen serving as a scribe at 3:12 PM on 05/10/2024 to document services personally performed by Nemesio Davila MD based on my observations and the provider's statements to me. 05/10/2024 [facility] EMERGENCY DEPT Nemesio Davila MD 05/11/241928 * Chago Meadows PA-C - 05/10/2024 2:20 PM CDT Emergency Department Note History of Present Illness Chief Complaint Wound Infection HPI Prerna Major is a 78 year old female with history of paraplegia secondary to transverse myelitis, MRSA, paroxysmal atrial fibrillation, heart failure, RA on chronic prednisone therapy and pressure ulcer who presents with complaint of abdominal pain and fever. Patient states her wounds were cultured by home health nurse and found positive for bacterial infection, subsequently placed on antibiotics 3 days ago on Friday, amoxicillin and metronidazole. She began to have abdominal discomfortyesterday that she describes as generalized throughout her entire abdomen, cramping, nonradiating. Patient also endorses nausea without vomiting. Also complains of headache and dizziness. She denies c hest pain and shortness of breath, cough, diarrhea. Patient does have an indwelling Cristobal catheter.Last bowel movement was this morning, described as well-formed without bright red blood or melena. Independent Historian None Review of External Notes 03/24/2024 hospital admission note reviewed for pressure injury buttock stage IV 03/06/2024 hospital admission note reviewed for pressure ulcer Past Medical History Medical History and Problem List Past Medical History: Diagnosis Date Arthritis Decubitus ulcer of right ischial area Gastric ulcer History of transverse myelitis MRSA (methicillin resistant Staphylococcus aureus) 12/02/2013 Neurogenic bladder Paraplegia Paroxysmal atrial fibrillation RA (rheumatoid arthritis) Sacral decubitus ulcer Medications No current outpatient medications on file. Surgical History Past Surgical History: Procedure Laterality Date EGD Physical Exam Patient Vitals for the past 24 hrs: BP Temp Temp src Pulse Resp SpO2 Height Weight 05/11/24 0841 122/52 -- -- 107 -- -- -- -- 05/11/24 0742 120/60 98.1 ??F (36.7 ??C) Axillary 97 16 99 % -- -- 05/11/24 0403 128/58 98.1 ??F (36.7 ??C) Axillary 100 16 100 % -- -- 05/11/24 0000 (!) 163/82 97.7 ??F (36.5 ??C) Oral 96 16 99 % -- -- 05/10/24 2350 -- 97.7 ??F (36.5 ??C) -- -- -- -- -- -- 05/10/242051 101/46 98.3 ??F (36.8 ??C) Oral 91 18 99 % 1.524 m (5') 59.6 kg (131 lb 6.3 oz) 05/10/241999 96/43 -- -- 105 17 100 % -- -- 05/10/24 1930 (!) 93/35 -- -- 100 20 100 % -- -- 05/10/24 1830 105/48 -- -- 116 -- 98 % -- -- 05/10/24 1800 116/57 -- -- 114 -- 100 % -- -- 05/10/24 1730 123/52 -- -- 119 -- (!) 84 % -- -- 05/10/24 1700 119/49 -- -- 112 -- (!) 81 % -- -- 05/10/24 1645 125/57 -- -- -- -- 97 % -- -- 05/10/24 1530 136/56 -- -- 100 -- 98 % -- -- 05/10/24 1500 126/46 -- -- 111 -- 99 % -- -- 05/10/24 1430 133/52 -- -- -- -- 95 % -- -- 05/10/24 1426 133/52 100.4 ??F (38 ??C) Oral 110 18 98 % -- -- Physical Exam Physical Exam: GENERAL: Warm, dry, alert, no increased work of breathing, laying back on gurney appearing tired however not toxic. HEENT: PERRLA, no scleral icterus, clear conjunctiva, oropharynx clear NECK: No JVD, supple without lymphadenopathy. No stiffness or restricted range of motion HEART: Regular rate and rhythm, no murmur or rubs LUNGS: CTAB, moving air well. Rhonchi appreciated at right base otherwise no crackles or wheezes are heard. ABD: Diffusely tender, soft, nondistended, no guarding, with good bowel sounds heard. BACK: Right buttock was bandaged, no blood or drainage on bandage. Bandage was removed, appreciatedseveral wounds consistent with stage IV pressure ulcers without surrounding erythema or purulent drainage. EXTREMITIES: no calf tenderness or peripheral edema. SKIN: Warm and dry. PSYCH: Appropriate mood and affect. Diagnostics Lab Results Labs Ordered and Resulted from Time of ED Arrival to Time of ED Departure COMPREHENSIVE METABOLIC PANEL - Abnormal Result Value Sodium 140 Potassium 3.3 (*) Carbon Dioxide (CO2) 28 Anion Gap 10 Urea Nitrogen 16.0 Creatinine 0.26 (*) GFR Estimate >90 Calcium 8.8 Chloride 102 Glucose 93 Alkaline Phosphatase 101 AST 17 ALT 9 Protein Total 5.2 (*) Albumin 3.2 (*) Bilirubin Total 0.4 ROUTINE UA WITH MICROSCOPIC - Abnormal Color Urine Yellow Appearance Urine Slightly Cloudy (*) Glucose Urine Negative Bilirubin Urine Negative Ketones Urine 20 (*) Specific [place] Urine 1.026 Blood Urine Trace (*) pH Urine 5.0 Protein Albumin Urine 30 (*) Urobilinogen Urine Normal Nitrite Urine Negative Leukocyte Esterase Urine Large (*) Bacteria Urine Few (*) WBC Clumps Urine Present (*) Mucus Urine Present (*) RBC Urine 35 (*) WBC Urine 123 (*) Squamous Epithelials Urine <1 CBC WITH PLATELETS AND DIFFERENTIAL - Abnormal WBC Count 15.6 (*) RBC Count 4.08 Hemoglobin 10.3 (*) Hematocrit 35.2 MCV 86 MCH 25.2 (*) MCHC 29.3 (*) RDW 19.1 (*) Platelet Count 287 % Neutrophils 62 % Lymphocytes 26 % Monocytes 10 % Eosinophils 1 % Basophils 1 % Immature Granulocytes 1 NRBCs per 100 WBC 0 Absolute Neutrophils 9.7 (*) Absolute Lymphocytes 4.0 Absolute Monocytes 1.5 (*) Absolute Eosinophils 0.2 Absolute Basophils 0.1 Absolute Immature Granulocytes 0.1 Absolute NRBCs 0.0 LIPASE - Abnormal Lipase 11 (*) ISTAT GASES LACTATE VENOUS POCT - Abnormal Lactic Acid POCT 1.1 Bicarbonate Venous POCT 30 (*) O2 Sat, Venous POCT 62 (*) pCO2 Venous POCT 43 pH Venous POCT 7.45 (*) pO2 Venous POCT 31 Base Excess/Deficit (+/-) POCT 5.0 (*) CRP INFLAMMATION - Abnormal CRP Inflammation 61.98 (*) CK TOTAL - Abnormal CK 15 (*) INFLUENZA A/B, RSV, & SARS-COV2 PCR - Normal Influenza A PCR Negative Influenza B PCR Negative RSV PCR Negative SARS CoV2 PCR Negative Imaging CT Chest/Abdomen/Pelvis w Contrast Final Result IMPRESSION: 1. Multiple decubitus ulcers, with CT findings suspicious for acute osteomyelitis involving the coccyx, and chronic osteomyelitis involving the right ischium. No drainable fluid collections. 2. Cristobal catheter within the vagina. 3. Nonobstructing right renal pelvis stones, including 13 mm right UPJ calculus. 4. Anal wall thickening is likely related to chronic inflammation. Follow-up advised to exclude underlying lesions. Tube/Catheter positioning was called to Chago Meadows PA-C by Dr. Rai Lock on 05/10/2024 5:18 PM CDT. EKG ECG results from 05/10/24 EKG 12-lead, tracing only Value Systolic Blood Pressure Diastolic Blood Pressure Ventricular Rate 103 Atrial Rate 103 NM Interval 144 QRS Duration 72 QT 340 QTc 445 P Thurman 65 R AXIS 25 T Thurman 50 Interpretation ECG Sinus tachycardia, normal axis, no ST elevation or depression. Possible Left atrial enlargement Borderline ECG When compared with ECG of 12-Mar-2024 11:32, Right bundle branch block is no longer Present Independent Interpretation None ED Course Medications Administered Medications sodium chloride (PF) 0.9% PF flush 3 mL (has no administration in time range) sodium chloride (PF) 0.9% PF flush 3 mL (3 mLs Intracatheter Not Given 05/11/24 0208) 0.9% sodium chloride + KCl 20 mEq/L infusion (0 mLs Intravenous Stopped 05/11/24 8676) potassium chloride (KLOR-CON) Packet 40 mEq (has no administration in time range) linezolid (ZYVOX) infusion 600 mg (600 mg Intravenous $New Bag 05/11/24 0640) metroNIDAZOLE (FLAGYL) infusion 500 mg (has no administration in time range) acetaminophen (TYLENOL) tablet 650 mg (has no administration in time range) vitamin C (ASCORBIC ACID) tablet 250 mg (250 mg Oral $Given 05/11/24 0841) gabapentin (NEURONTIN) capsule 300 mg (300 mg Oral $Given 05/11/24 0841) lactobacillus rhamnosus (GG) (CULTURELL) capsule 1 capsule (1 capsule Oral $Given 05/11/24 0841) predniSONE (DELTASONE) tablet 10 mg (10 mg Oral or NG Tube $Given 05/11/24 0841) zinc sulfate (ZINCATE) capsule 220 mg (220 mg Oral or NG Tube $Given 05/10/24 2352) lidocaine 1 % 0.1-1 mL (has no administration in time range) lidocaine (LMX4) cream (has no administration in time range) sodium chloride (PF) 0.9% PF flush 3 mL (3 mLs Intracatheter Not Given 05/11/24 0525) sodium chloride (PF) 0.9% PF flush 3 mL (has no administration in time range) calcium carbonate (TUMS) chewable tablet 1,000 mg (has no administration in time range) heparin ANTICOAGULANT injection 5,000 Units (5,000 Units Subcutaneous $Given 05/11/24 0601) oxyCODONE (ROXICODONE) tablet 5 mg (has no administration in time range) oxyCODONE IR (ROXICODONE) half-tab 7.5 mg (7.5 mg Oral $Given 05/11/24 0400) senna-docusate (SENOKOT-S/PERICOLACE) 8.6-50 MG per tablet 2 tablet (2 tablets Oral or NG Tube $Given 05/10/24 2237) ondansetron (ZOFRAN ODT) ODT tab 4 mg (has no administration in time range) Or ondansetron (ZOFRAN) injection 4 mg (has no administration in time range) polyethylene glycol (MIRALAX) Packet 17 g (has no administration in time range) bisacodyl (DULCOLAX) suppository 10 mg (has no administration in time range) cefTRIAXone (ROCEPHIN) 1 g vial to attach to NS 100 mL bag for ADULTS or NS 50 mL bag for PEDS (1 gIntravenous $New Bag 05/11/24 0557) furosemide (LASIX) tablet 40 mg ( Oral Automatically Held 05/16/24 0900) metoprolol tartrate (LOPRESSOR) tablet 25 mg (25 mg Oral $Given 05/11/24 0841) naloxone (NARCAN) injection 0.2 mg (has no administration in time range) Or naloxone (NARCAN) injection 0.4 mg (has no administration in time range) Or naloxone (NARCAN) injection 0.2 mg (has no administration in time range) Or naloxone (NARCAN) injection 0.4 mg (has no administration in time range) sodium chloride 0.9% BOLUS 500 mL (0 mLs Intravenous Stopped 05/10/24 1700) Saline (72 mLs As instructed $Given 05/10/24 1606) iopamidol (ISOVUE-370) solution 62 mL (62 mLs Intravenous $Given 05/10/24 1606) cefTRIAXone (ROCEPHIN) 2 g vial to attach to NS 100 ml bag for ADULTS or NS 50 ml bag for PEDS (0 gIntravenous Stopped 05/10/24 182) acetaminophen (TYLENOL) tablet 975 mg (975 mg Oral $Given 05/10/24 174) linezolid (ZYVOX) infusion 600 mg (0 mg Intravenous Stopped 05/10/242001) metroNIDAZOLE (FLAGYL) infusion 500 mg (500 mg Intravenous $New Bag 05/10/242009) Procedures Procedures Discussion of Management Radiologist, Dr. Lock Admitting hospitalist Dr. Joseph Staffed with Dr. Davila ED Course ED Course as of 05/11/24 08FriMay 10, 2024 1434 I evaluated and examined the patient 1699 I reevaluate the patient, no change, condition. 1711 I spoke with hospital medicine, Dr. Joseph, who preferred to await CT results to determine if there is osteomyelitis and need for transfer for services not available at [facility]. 1719 I spoke with [facility] radiology regarding CT results, findings are consistent with chronic osteomyelitis with possible acute osteomyelitis at the coccyx. 1745 I spoke with the clinical pharmacist regarding antibiotic choices given patient's allergies. He recommends linezolid and Flagyl as well as the previously ordered ceftriaxone. Optional/Additional Documentation None Medical Decision Making / Diagnosis [facility] Diagnoses: None MIPS Cristobal catheter was inserted because previous indwelling Cristobal catheter with concern for infection. GABRIELA Major is a 78 year old female with history of paraplegia secondary to transverse myelitis, MRSA, paroxysmal atrial fibrillation, heart failure, RA on chronic prednisone therapy and pressure ulcer who presents with complaint of abdominal pain and fever. Differential includes but is not limited to pyelonephritis, acute cystitis, peritonitis, appendicitis, pancreatitis, and respiratory infection among many others. Patient was febrile at presentation with temperature 100.4 F and a heart rate of 112. Physical exam was significant for tenderness to palpation across her abdomen diffusely without rebound or guarding and several decubitus ulcers on her right buttock without surrounding erythema or purulent drainage. Workup was fairly broad today given her previous history. Patient's lactic acid was 1.1. Patient did have mild anemia however this is consistent with previous findings. She also had a leukocytosis however this was also consistent with previous findings. Her lipase and LFTs were without significant abnormalities. She was very mildly hypokalemic with potassium 3.3 however this is most likely not contributory. Patient's UA was consistent with acute cystitis with a significant amount of pyuria and leukocyte esterase. A CT of chest abdomen pelvis was obtained to assess for pulmonary and intra-abdominal infection. There were no infiltrates found in the chest to indicate pneumonia. CT findings susp icious for acute osteomyelitis involving the coccyx, and chronic osteomyelitis involving the right ischium without drainable fluid collections. Findings also include nonobstructing right renal pelvisstone and anal wall thickening which is most likely chronic inflammation. A Cristobal catheter was alsonoted to be in the vagina however the RN had already replaced this after the CT was obtained and confirmed placement within urinary bladder. I spoke with the patient regarding all these findings and recommended admission, she agrees. IV antibiotics were ordered as recommended by clinical pharmacistgiven patient's allergies. I spoke with hospital medicine, Dr. Joseph, patient accepted for admission for acute cystitis and acute osteomyelitis of the coccyx. The patient was subsequently admittedin stable condition. Disposition The patient was admitted to the hospital. Diagnosis ICD-10-CM 1. Acute cystitis with hematuria N30.01 2. Osteomyelitis of coccyx (H) M46.28 Discharge Medications Current Discharge Medication List WIL Owens John, PA-C 05/11/24 0858 documented in this encounter Miscellaneous Notes * Plan of Care - Catarina Pretty OTR - 05/26/2024 3:13 PM CDT Occupational Therapy Discharge Summary Reason for therapy discharge: Discharged to transitional care facility. Progress towards therapy goal(s). See goals on Care Plan in [facility] electronic health record for goal details. Goals partially met. Barriers to achieving goals: discharge from facility. Therapy recommendation(s): Continued therapy is recommended. Rationale/Recommendations: Pt is dustin lift dep at baseline and Ax1 for all ADL/cares in hospital bed at home. Is close to baseline, limited slightly by pain and UE weakness, although improving. Pt typicaly able to roll for cares in bed Ax1. At this time, pt was able to mange A x 1, but needed cont A x 1 to maintain position. she already has all DME/AE at home. pt does not have signficant OT needs other than strengthening of UEs. per chart review and conversation with team, she does have signficant need for wound cares which warrant placement, see MD and RN notes for details. Pt could discharge home with A x 1 for cares and HH OT/PT, however, confirmed planper RN and healthcare network consultant/SW is to discharge to TCU this date. Pt is okay with this plan. * Plan of Care - Ruchi Carlin, PT - 05/26/2024 11:56 AM CDT PT consult received. Chart reviewed and discussed with OT. Pt plans to discharge soon today to TCU and prior auth was already received today. Will defer PT to the next level of care. Will complete Ptorder. * Plan of Care - Nakul Moreno RN - 05/25/2024 6:30 PM CDT Surgery/POD#: 7 - Diverting colostomy for pressure injuries Orientation: AOx4 ABNL VS/O2: on RA ABNL Labs: Pain Management: dilaudid po Bowel/Bladder: colostomy good output, bowel sounds normoactive, chronic Cristobal - yellow slightly cloudy urine Drains/IVs: midline - flushed, no blood return Wounds/incisions: abd lap sites wnl, 2x R buttock PIs, 1x sacral PI, dressings changed. Skin tears in buttocks noted Diet: low fiber - tolerating Activity Level: assist x2 with lift, baseline paraplegia Tests/Procedures: Anticipated DC Date: tomorrow? - pending insurance auth Significant Information: Rheumatoid arthritis, afib, ride scheduled for 1pm tentatively * Plan of Care - Hetal Roman PT - 05/25/2024 10:39 AM CDT Physical Therapy: Orders received. Chart reviewed and discussed with care team.? Per OT assessment,patient largely stays in bed due to wound. There is a Dustin lift available to dependently transfer patient into wheelchair. Patient will occasionally sit in wheelchair but does not self-propel. Family completes ADL cares with patient in bed. No IP PT needs identified as patient dependent for all OOB mobility. Does not appear to be strong candidate for TCU given limited rehab potential, if needingmore supportive environment consider placement in [facility]. * Plan of Care - Alaina Malave RN - 05/24/2024 6:38 PM CDT Shift Note [id number]: Patient is alert and oriented x4. Mobility: Ax2 Lift, turn/ reposition Vitals/Tele: VSS, pain maintains around 5-9/10, pain medication given Aggression Stop Light: green Shift Summary: wound care completed. SW/CC involved, TCU placement found (see SW note). PT/ OT ordered. Cristobal patent and draining. Ostomy changed via WOC RN. Discharge Plan: TCU 05/25. Ride scheduled. See Flow sheets for assessment * Plan of Care - Freida Stout RN - 05/24/2024 6:28 AM CDT Goal Outcome Evaluation: Surgery: POD #6 Laparoscopic diverting colostomy Behavior & Aggression: Green Fall Risk: Yes Orientation: A&Ox4 ABNL VS/O2: VSS on RA ABNL Labs: Hb.5 Pain Management: Scheduled Gabapentin, Atarax, Robaxin, PRN PO Dilaudid, & heat packs Bowel/Bladder: Chronic cristobal in place- adequate output. BS audible- passing gas. Colostomy in placewith brown loose output. IV: Midline in place- SL Wounds/incisions: Abdominal lap sites- CDI. Buttock wounds- CDI (patient refused evening dressing change). Redness to abdominal folds- intradry in place. Diet: Low fiber- tolerating Activity Level: Ax2 turn & repo- refuses repositioning at times. Anticipated DC Date: Pending TCU placemen * Plan of Care - Lamar Wu RN - 05/23/2024 8:36 PM CDT Goal Outcome Evaluation: Surgery: POD #5 Laparoscopic diverting colostomy Behavior & Aggression: Green Fall Risk: Yes Orientation: A&Ox4 ABNL VS/O2: VSS on RA ABNL Labs: Hb.5 Pain Management: Scheduled Gabapentin, Atarax, Robaxin & PRN PO Dilaudid Bowel/Bladder: Chronic cristobal in place- adequate output. BS audible- passing gas. Colostomy in placewith moderate amount of soft darnell BM IV: Midline in place to RUE- patent. Wounds/incisions: Abdominal lap sites- CDI. Wound cares completed to buttocks & abd folds, abrasion to L groin/abd area; inter dry applied, 3 lidocaine patches to lower back & R hip. Refuses repositioning from R to L; will allow repositioning to L side or neutral position. Education provided. Diet: Low fiber- tolerating, tray set-up assistance, able to feed self Activity Level: Ax2 turn & repo- refuses repositioning at times, see above Anticipated DC Date: Pending * Plan of Care - Freida Stout RN - 05/23/2024 6:25 AM CDT Goal Outcome Evaluation: Surgery: POD #5 Laparoscopic diverting colostomy Behavior & Aggression: Green Fall Risk: Yes Orientation: A&Ox4 ABNL VS/O2: VSS on RA ABNL Labs: Hb.5 Pain Management: Scheduled Gabapentin, Atarax, Robaxin & PRN PO Dilaudid Bowel/Bladder: Chronic cristobal in place- adequate output. BS audible- passing gas. Colostomy in placewith brown loose output. IV: Midline in place- SL Wounds/incisions: Abdominal lap sites- CDI. Buttock wounds- CDI (patient refused evening dressing change). Redness to abdominal folds. Diet: Low fiber- tolerating Activity Level: Ax2 turn & repo- refuses repositioning at times. Anticipated DC Date: Pending * Plan of Care - Jonathan Nix RN - 05/22/2024 7:05 PM CDT Goal Outcome Evaluation: Progressing 05/10/24, POD 4, Laparoscopic diverting colostomy 05/22/24, 7 a to 7 p Orientation: Oriented x 4. pleasant Vitals/Tele: vSS on RA, Dilaudid for shyanne for 05/22 pain from lap sites and buttocks wound sites IV Access/drains: R PICC SL, no blood return Diet: Regular, tolerating Mobility: Q2 T and Repo, refused 6.45 pm turn GI/: Cristobal in, colostomy with very minimal output in use Wound/Skin: 3 wounds dressings done Consults: WOC, Nutrition, colorectal following Discharge Plan: TBD See Flow sheets for assessment * Plan of Care - Freida Stout RN - 05/22/2024 6:31 AM CDT Goal Outcome Evaluation: Surgery: POD #4 Laparoscopic diverting colostomy Behavior & Aggression: Green Fall Risk: Yes Orientation: A&Ox4 ABNL VS/O2: VSS on RA ABNL Labs: Hb.5 Pain Management: PRN Toradol & PO Dilaudid Bowel/Bladder: Chronic cristobal in place- adequate output. BS audible- passing gas. Colostomy in placewith brown loose output. IV: Midline in place- SL Wounds/incisions: Abdominal lap sites- CDI. Buttock wounds- CDI. Redness to abdominal folds- intradry in place. Diet: Low fiber- tolerating Activity Level: Ax2 turn & repo- refuses repositioning at times. Anticipated DC Date: Pending * Plan of Care - Krista Jang RN - 05/21/2024 9:50 PM CDT DATE & TIME: 05/21/24 3pm-11pm Cognitive Concerns/ Orientation : A&Ox4 BEHAVIOR & AGGRESSION TOOL COLOR: green ABNL VS/O2: VSS/Room air MOBILITY: total/lift PAIN MANAGMENT: PRN PO Dilaudid 4mg, scheduled tylenol, atarax, gabapentin, robaxin, lidocaine patches, Voltaren gel DIET: low fiber BOWEL/BLADDER: cristobal and colostomy DRAIN/DEVICES: R Midline/Cristobal/Colostomy SKIN: buttock wounds TESTS/PROCEDURES: POD #3 lap diverting colostomy D/C DATE: pending to TCU * Plan of Care - Harry Alcala RN - 05/21/2024 2:06 PM CDT Goal Outcome Evaluation: A&O x 4. VSS, RA. CMS unchanged. Pain managed with po dilaudid and robaxin. Turn and repo, assist of 2 with lift. Tolerating diet. Midline SL. Dressing on coccyx changed. Pending placement. * Plan of Care - Jovani Pollock, PT - 05/21/2024 11:49 AM CDT PT: Chart reviewed and orders received. Discussed with pt, pt is WC bound baseline and uses a hoyerlift for transfers. Pt is currently at her baseline. No PT needs at this time and will complete orders. * Plan of Care - Hermelindo Ryan RN - 05/20/2024 7:04 PM CDT Date/time: 05/20/24 Surgery/POD#: POD #2 s/p diverting colostomy Orientation: A&Ox4 ABNL VS/O2: VSS on RA ABNL Labs: See chart Pain Management: Scheduled Tylenol, robaxin, gabapentin. PRN Oxy q4hr - patient is a chronic pain patient. Premedicate w/ IV dilaudid. PRN toradol added for additional pain relief. Bowel/Bladder: Chronic cristobal w/ adequate UOP. Cristobal cares done. Colostomy w/ small output. Drains: Cristobal, Midline SL, CHG bath done Wounds/incisions: Abd lap sites w/ bruising. Buttock wounds x3, dressing change w/ packing done x2 per POC. L groin abrasion, barrier cream applied. Diet: Low fiber Activity Level: Ax2 w/ Lift Anticipated DC Date: Possibly tomorrow depending on pain management Significant Information: Lidocaine patches removed. Voltaren gel applied to shoulders. * Plan of Care - Hermelindo Ryan RN - 05/19/2024 6:27 PM CDT Date/time: 05/19/24 Surgery/POD#: POD #1 s/p diverting colostomy Orientation: A&Ox4 ABNL VS/O2: VSS on RA ABNL Labs: WBC 12.5, Hgb 9.4, Phos 4.8 Pain Management: Scheduled Tylenol, lidocaine patches and voltaren gel. PRN Oxy - premedicate for dressing changes Bowel/Bladder: Chronic cristobal w/ adequate UOP. Cristobal cares done. Colostomy w/ small output Drains: Cristobal, Midline infusing LR at 75 ml/hr, CHG bath done Wounds/incisions: Abd lap sites CDI. Buttock wounds x3, dressing change w/ packing done x1 per POC Diet: Low fiber Activity Level: Ax2 w/ Lift Anticipated DC Date: Pending continued improvement Significant Information: Lidocaine patches in place near bottom. Voltaren gel applied to shoulders.Pre-medicate for dressing changes with PRN oxycodone. * Plan of Care - Hetal Robledo RN - 05/19/2024 6:55 AM CDT Surgery/POD#: POD #1 s/p diverting colostomy Orientation: A&Ox4 ABNL VS/O2: VSS on RA, HTN at times ABNL Labs: WBC 15.9, Hgb 10.2 Pain Management: Scheduled Tylenol & PRN Oxy Bowel/Bladder: Chronic cristobal w/ borderline low UOP. Colostomy w/ no output. Drains: Midline infusing LR at 75 ml/hr Wounds/incisions: Abd lap sites CDI. Buttock wounds x3. Diet: Low fiber Activity Level: Ax2 w/ Lift Anticipated DC Date: Pending * Plan of Care - Saeid Salvador RN - 05/18/2024 11:46 PM CDT Summary: POD#0 Laparoscopic diverting colostomy Primary Diagnosis: Sepsis likely from infected decubitus ulcer, urinary source. Acute osteomyelitis involving the coccyx Chronic osteomyelitis involving the right ischium.Chronic decubitus ulcer. History of MRSA infection. 19:00-23:30 Orientation: A&Ox4 Aggression Stop Light: green Activity: Ax2 T/R,Lift, Vitals: VSS on RA Diet/BS Checks: Low Fiber Tele: None IV Access/Drains: Midline R upper arm running LR @ 75mL/hr Pain Management: pt pain 02/19. pt stated that is lowest it has been in a while. Pt has chronic pain. Bowel/Bladder: chronic Cristobal in place no BM this shift Skin/Wounds: Scattered bruising . Coccyx wound x3. Mepi x2 in place Bilateral feet +2-3 edema D/C Disposition: pending Other: Pt on contact precaution for MRSA * Brief Op Note - Peter Alfredo MD - 05/18/2024 6:52 PM CDT [facility] Brief Operative Note Pre-operative diagnosis: Decubitus ulcer [L89.90] Post-operative diagnosis Same as pre-operative diagnosis Procedure: Laparoscopic diverting colostomy, N/A - Abdomen Surgeon: Surgeons and Role: * Peter Alfredo MD - Primary Anesthesia: General Estimated Blood Loss: 25 Drains: None Specimens: * No specimens in log * Findings: None. Complications: None. Implants: * No implants in log * IVF: 250 UOP: 150 Condition on discharge from OR: Satisfactory Peter Alfredo MD [facility] [phone]. ADDENDUM: PATIENT DATA Indicate Y or N: Home O2 No Hemodialysis No Transplant patient No Cirrhosis No Steroids in last 30 days Yes Immunomodulators in last 30 days No Anticoagulation at time of surgery No List medication na Prior abdominal surgery Yes Pelvic irradiation No Albumin within 30 days if known Hgb within 30 days if known Hemoglobin Date Value Ref Range Status 05/18/2024 10.2 (L) 11.7 - 15.7 g/dL Final 12/13/2013 8.4 (L) 11.7 - 15.7 g/dL Final ] Cr within 30 days if known Creatinine Date Value Ref Range Status 05/18/2024 0.31 (L) 0.51 - 0.95 mg/dL Final 12/14/2013 0.37 (L) 0.52 - 1.04 mg/dL Final ] Body mass index is 28.85 kg/m??. OR DATA Emergent No <24 hours No <1 week No Bowel Prep Yes Antibiotics Yes DVT prophylaxis Heparin Yes SCD Yes None No Drain No ASA (1,2,3,4) 3 OR time (min) 60 min Stents No Transfuse >/= 2U No Anastomosis Stapled No Handsewn No Leak Test Positive No Negative No Not done Yes * Plan of Care - Jazmin Acosta RN - 05/18/2024 6:29 PM CDT Goal Outcome Evaluation: Primary Diagnosis: admitted for weakness, acute osteomyelitis secondary to sacral wound. ONLY POST BELOW FOR END OF SHIFT NOTE Orientation: Alert and oriented Aggression Stop Light: yellow Activity: lift Diet/BS Checks: NPO Tele: none IV Access/Drains: right Mid line Pain Management: tylenol, gabapentin, diclofenac Abnormal VS/Results: vitals are with in normal limits Bowel/Bladder: chronic cristobal, incontinent of bowel, colostomy placement in progress. Skin/Wounds: sacral wound, Consults: surgery D/C Disposition: to be determined Other Info: colostomy placement today. * Plan of Care - Patricia Barrett RN - 05/18/2024 2:07 PM CDT Goal Outcome Evaluation: Date/Time: 05/18/2024 ([id number]) Mental Status: A&O x4 Activity/dangle: Mechanical lift Diet: NPO except meds Pain: Oxycodone Cristobal/Voiding: Cristobal- Chronic/ neurogenic bladder Tele/Restraints/Iso: Contact precaution 02/LDA: Midline on RUE D/C Date: TBD Other Info: Dressing on sacral wound changed x1, CHG done x1, had few incontinent of bowel this shift, surgery later today. * Op Note - Peter Alfredo MD - 05/18/2024 10:58 AM CDT OPERATIVE REPORT PREOPERATIVE DIAGNOSIS: Fecal incontinence, sacral debubitus wounds POSTOPERATIVE DIAGNOSIS: same PROCEDURE: 1. Laparoscopic sigmoid end colostoy SURGEON: Peter Alfredo MD WEED CUTTER: Sanchez Sparks MD, [facility] Colorectal Surgery Fellow ANESTHESIA: General. ESTIMATED BLOOD LOSS: 25 mL. 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 She has a history of stage IV sacral decubitus ulcers. She has osteomyelitis. She has fecal incontinence secondary to her neurologic disease. Given the osteomyelitis and the advanced age of her decubitus ulcer she was advised to have a diverting colostomy. I recommended a laparoscopic sigmoid colostomy. The risks of surgery including bleeding, infection, injury to adjacent structures, need for further surgery discussed. She wishes to proceed. FINDINGS: There is no evidence of intra-abdominal pathology. She had redundant sigmoid colon. The anatomy was verified to times laparoscopically after bringing the proximal limb of the sigmoid colon up through the abdominal trephine. DESCRIPTION OF PROCEDURE: After obtaining form consent and after a full bowel prep the patient was brought to the operating room and laid supine on the operative table. General anesthesia was induced. She was intubated without difficulty. Her right arm was tucked at her side and her left arm was out on an armboard. She was secured to the table with tape across the chest and straps across the legs. The abdomen was prepped and draped in usual sterile fashion. Timeout was undertaken which identified the patient correct procedure. A stab incision was made in the left upper quadrant. A Veress needle was utilized to establish pneumoperitoneum. With pneumoperitoneum established we placed a 5 mm trocar in the supraumbilical position with the optical trocar technique. We surveyed the abdomen. There were adhesions of the omentum to the right upper quadrant from her prior open cholecystectomy. There was no injury to the underlying viscera and the Veress needle was removed. We performed a transversus abdominis plane block with atotal of 45 cc of half percent Marcaine with dilute epinephrine injected for equal aliquots in the abdominal wall. We placed a 5 mm trocar in the right mid abdomen and a 12 mm trocar in the lower midline. We placed a 5 mm trocar through the marking made by the ostomy nurse for the proposed colostomy. The patient was placed left side up in slight Trendelenburg position. The sigmoid colon was then identified utilizing standard laparoscopic instrumentation. The distal limb going down into the pelvis was identified. After ensuring proper orientation we created a window in the mesentery just underneath the bowel in the midportion of the sigmoid colon. We chose the spot where the bowel was most mobile and would come up to the abdominal wall. Small portion of the mesentery was taken with the vessel sealing device. The bowel was transected with a single firing of a 60 mm green load laparoscopicGIA stapler. Disc of skin was excised around the port for the proposed colostomy. The bowel was grasped through this port with a grasper teeth. The fascia was incised in a craniocaudal fashion and we were able toeasily bring up the proximal limb of the bowel through the trephine and proper orientation with great care to not cause any bleeding along the mesenteric edge. We reestablished pneumoperitoneum and ve rify the anatomy. We closed the 12 mm trocar site in the right lower quadrant. Pneumoperitoneum wasevacuated. The ports removed. Skin and subcutaneous fat was irrigated and closed with 4 Monocryl insubcuticular fashion. Dermabond was placed as a dressing. The colostomy was matured in a Laurence fashion by excising the end staple line. It was matured with interrupted 3-0 Vicryl sutures. A stoma appliance was applied. The patient was awakened, extubated, and transferred the PACU in stable condition counts correct at the end of the case. PETER ALFREDO MD * Plan of Care - Vidal Kirk RN - 05/18/2024 7:06 AM CDT [id number] Orientation: A&Ox4 Aggression Stop Light: green Activity: Ax2 T/R,Lift, Diet/BS Checks: NPO except meds starting at 0500 Tele: None IV Access/Drains: no IV access, pt refused midline placement overnight, will get one placed in AM before procedure per vascular access note. Pain Management: 9/10 pain in buttocks, managed with PRN oxycodone x2, scheduled tylenol. [address]. Abnormal VS/Results: VSS on RA. Bowel/Bladder: chronic Cristobal in place, multiple incontinent Bms d/t bowel prep Skin/Wounds: Scattered bruising . Coccyx wound x3. Wound cares completed to wounds. Consults: WOC, ID, Surg D/C Disposition: pending Other Info: A&ox4. VSS on RA. Reported severe pain in buttocks, managed with PRN oxycodone x2, scheduled Tylenol, and lidocaine patches. Pt finished bowel prep around 0645. Ax2 T/R. Cristobal in place. Multiple incontinent Bms overnight d/t bowel prep. No IV access, Midline to be placed this AM. NPO except formeds started at 0500.Continues on contact precautions. Discharge pending. Plans for diverting colostomy procedure this afternoon 05/18. * Provider Notification - Vidal Kirk RN - 05/18/2024 6:01 AM CDT MD Notification Notified Person: hospitalist Notified Person Name: Dr. Levi Notification Date/Time: 05/18/2024 at 0600 Notification Interaction: AIM web messaging Purpose of Notification SBAR Situation: 816 C.T. pt has subQ heparin due now. per colorectal surgery note hold subQ heparintomorrow morning (05/18). please see note. Background: pt is having procedure for diverting colostomythis afternoon per notes. Recommendation: The hold is placed for after the 0600 dose. Do you want me to hold this dose Orders Received: Hold this AM dose. Comments: * Plan of Care - Patricia Barrett RN - 05/17/2024 5:57 PM CDT Goal Outcome Evaluation: Date/Time: 05/17/2024 ([id number]) Mental Status: A&O x4 Activity/dangle: Up with mechanical lift Diet: Clear liquid Pain: Oxycodone Cristobal/Voiding: Cristobal Tele/Restraints/Iso: Contact Precaution : No IV access- order for midline- Vascular RN will place this evening D/C Date: TBD Other Info: Wound care x1 this shift, bowel prep started @ 1630, incontinent of bowel x3. NPO @ 0500 in the morning. Surgery tomorrow afternoon. * Provider Notification - Patricia Barrett RN - 05/17/2024 12:54 PM CDT MD Notification Notified Person: Colorectal PA Notified Person Name: Venkat Briceno Notification Date/Time:05/17/2024 @ 0944 Notification Interaction: Dimitry Purpose of Notification: Clarification on PICC line purpose per vascular RN Orders Received: need an IV access for fluids and antibiotics for now. Can change to Midline. Comments: * Plan of Care - Wilma Browne RN - 05/17/2024 6:11 AM CDT Orientation: A&Ox4 Aggression Stop Light: green Activity: A-2 and Lift, Weight shifting Q2 hours. Diet/BS Checks: Regular Tele: NA IV Access/Drains: no IV access Pain Management: prn oxy given 1x Abnormal VS/Results: VSS on RA. Bowel/Bladder: chronic Cristobal in place, Skin/Wounds: Scattered bruising . Coccyx wound x3. Consults: WOC, ID, Surg D/C Disposition: pending Other Info: -pt declines repositioning at times, education provided -pt to get colostomy on 05/18 * Plan of Care - Izzy Grant RN - 05/16/2024 10:39 PM CDT Goal Outcome Evaluation: Summary Weakness , Osteomyelitis Hx Transverse myelitis, paraplegia, neurogenic bladder with chronic indwelling Cristobal catheter, decubitus ulcers with chronic osteomyelitis, RA on chronic prednisone therapy, HUI, HFpEF, atrial fibrillation, hypertension, gastric ulcer 05/15/2024 [id number] Contact precautions maintained for MRSA Orientation A &O x 4 Vitals/Tele VSS on RM air Pain managed with PRN oxycodone & scheduled tylenol IV Access/drains no IV access, cristobal in place Diet Reg Mobility Ast 2 / Lift T/ R refuses reposition at times GI/ Incontinent of B/B multiple BM this shift, Cristobal in place good out put Wound/Skin Coccyx wound x3 packing each have 1, wound cares done 1x this shift, scattered bruises, + 3 edema on feet Consults WOC, ID, Colorectal Surgery (Plan for surgery on Friday) Discharge Plan Pending See Flow sheets for assessment * Plan of Care - Franca Perez RN - 05/16/2024 3:10 PM CDT Goal Outcome Evaluation: Orientation: A&Ox4 Aggression Stop Light: green Activity: A-2 and Lift, Weight shifting Q2 hours. Diet/BS Checks: Regular Tele: NA IV Access/Drains: no IV access Pain Management: prn oxy given 2x Abnormal VS/Results: VSS on RA. Bowel/Bladder: chronic Cristobal in place, 2 bm this shift Skin/Wounds: Scattered bruising . Coccyx wound x3. Wound care completed this shift. Consults: WOC, ID, Surg D/C Disposition: pending Other Info: -pt declines repositioning at times, education provided -Pt elected to have surgery on 05/18. Will stay until surgery. * Plan of Care - Wilma Browne RN - 05/16/2024 6:05 AM CDT Orientation: A&Ox4 Aggression Stop Light: green Activity: A-2 and Lift, T/R q2hrs Diet/BS Checks: Regular Tele: n/a IV Access/Drains: no IV access Pain Management: prn oxy given 2x Abnormal VS/Results: VSS on RA. Bowel/Bladder: chronic Cristobal in place, 1 bm this shift Skin/Wounds: Scattered bruising . Coccyx wound x3 Consults: WOC, ID, Surg D/C Disposition: pending Other Info: -pt declines repositioning, education provided * Plan of Care - Izzy Grant RN - 05/16/2024 12:01 AM CDT Goal Outcome Evaluation: Summary Weakness , Osteomyelitis Hx Transverse myelitis, paraplegia, neurogenic bladder with chronic indwelling Cristobal catheter, decubitus ulcers with chronic osteomyelitis, RA on chronic prednisone therapy, HUI, HFpEF, atrial fibrillation, hypertension, gastric ulcer 05/15/2024 [id number] Orientation A &O x 4 Vitals/Tele VSS on RM air IV Access/drains no IV access, cristobal in place Diet Reg Mobility Ast 2 / Lift GI/ Incontinent of B/B Wound/Skin Coccyx wound x3 the one closet to rectum has 2 packing the other 2 have 1, wound cares done 1x this shift , dry skin on feet, applied lotion to feet, scattered bruises Consults Colorectal Surgery Discharge Plan Pending See Flow sheets for assessment * Plan of Care - Franca Perez RN - 05/15/2024 2:43 PM CDT Goal Outcome Evaluation: Orientation: A&Ox4 Aggression Stop Light: green Activity: A2 and Lift, T/R q2hrs; declines repositioning at times- education provided. Prefers leftside laying d/t pressure sores Diet/BS Checks: Regular Tele: NSR IV Access/Drains: no IV access, provider aware. Pain Management: prn oxy given 2x, voltaren gel and 2x lidocaine patches in place on back/bottom. Abnormal VS/Results: VSS on RA. Bowel/Bladder: chronic Cristobal in place. 1 loose BM this shift. Skin/Wounds: Scattered bruising . Coccyx wound x3, wound cares done 1x this shift Consults: WOC, ID, Surg D/C Disposition: pending abx plan. Other Info: -Stool noted in pt's wound. Pt requested to speak with surgery regarding loop colostomy. * Plan of Care - Wilma Browne RN - 05/15/2024 6:52 AM CDT Orientation: A&Ox4 Aggression Stop Light: green Activity: A2 and Lift, T/R q 2 hrs. Diet/BS Checks: Reg Tele: NSR IV Access/Drains: no IV access Pain Management: prn oxy given, voltaren gel and 3x lidocaine patches in place on back/bottom Abnormal VS/Results: VSS on RA. CPAP used at night. Bowel/Bladder: chronic Cristobal in place. Small diarrhea BM this shift Skin/Wounds: Scattered bruising . Coccyx wound x3, wound cares done 1x this shift Consults: WOC, ID, Surg D/C Disposition: pending abx plan. Other Info: -pt refused turns overnight * Plan of Care - La Maciel RN - 05/14/2024 7:09 AM CDT [id number] Orientation: a&ox4 Aggression Stop Light: green Activity: a2 lift. T/R q2hr. Pt refused wanting to stay on one side Diet/BS Checks: regular Tele: NSR IV Access/Drains: no IV access Pain Management: oxy given x1 for back and right hip pain Abnormal VS/Results: VSS on CPAP overnight Bowel/Bladder: chronic cristobal for retention. Incont Bowel Skin/Wounds: scattered bruising. Coccyx wounds x3. Edema in feet and ankles Consults: WOC, PT, OT, ID, pain service D/C Disposition: pending Other Info: refused turns overnight * Plan of Care - Cindy Parks - 05/13/2024 10:55 PM CDT Orientation: AOx4 Aggression: Green Activity: Assist x 2; Lift Diet: Regular Tele: NSR IV Access/Drains: Cristobal. No PIV, MD aware. Pain Management: Oxy PRN prior to wound care Abnormal VS/Results: VSS on RA. Bowel/Bladder: Cristobal in place. Small BM x1; smear BM x1. Refused stool softener. Skin/Wounds: Scattered bruising. Coccyx wound x3, W/C completed. Consults: Surgery, WOC, & ID following. 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 Associated attestation - Guerda Correa RN - 05/13/2024 11:09 PM CDT Reviewed by FENG VALENTINE * Plan of Care - Erick London RN - 05/13/2024 2:32 PM CDT Goal Outcome Evaluation: Orientation: AOx4 Aggression Stop Light: green Activity: A2 and Lift, T/R q 2 hrs. Diet/BS Checks: Reg diet. Tele: NSR IV Access/Drains: L PIV- Removed. Pt then refused new IV placement. MD notified Pain Management: PRN 10 mg oxy given 1x for 05/22 for wound care Abnormal VS/Results: VSS on RA. CPAP used at night. Rash present this morning on abdominal area benadryl was given and rash has resolved. Bowel/Bladder: Cristobal in place. Med diarrhea BM this morning Small diarrhea BM in afternoon. Miramax& Stool softener refused Skin/Wounds: Scattered bruising throughout. Coccyx wound x3, W/C completed and tolerated. ID was present during W/C and changed antibiotics regimen to oral Consults: WOC, ID, Surg D/C Disposition: pending abx plan. Other Info: * Provider Notification - Wyatt Tuttle RN - 05/13/2024 6:44 AM CDT MD Notification Notified Person: MD Notified Person Name: Quique Cordon Notification Date/Time: 05/13/24 0644 Notification Interaction: dimitry Purpose of Notification: Complained of itchiness, no PRN available, can you order one in? Noted scattered rashes in the abd area, neck and upper arms, denies SOB, VS WDL. Thanks Orders Received: Comments: * Plan of Care - Wyatt Tuttle RN - 05/13/2024 3:40 AM CDT Goal Outcome Evaluation: 05/12/24 [id number] Orientation: A/Ox4, pleasant Aggression Stop Light: green Activity: A2 T/R lift Diet/BS Checks: Reg Tele: NSR IV Access/Drains: L PIV SL int abx Pain Management: Oxy PRN 2x given Abnormal VS/Results: VSS,RA, uses CPAP at night Bowel/Bladder: inc with bowel BM 2x, cristobal in place with minimal uo Skin/Wounds: scattered bruising, coccyx wounds x3- dressings CDI, dressing changed 1x to the outer Right buttock, scattered rashes in the abd area, neck, upper arms Consults: WOC/PT/OT/ID D/C Disposition: pending Other Info: C/o of itchiness this morning, MD aware. Benadryl PO PRN given 1x * Plan of Care - Padmaja Márquez RN - 05/12/2024 6:06 PM CDT Goal Outcome Evaluation: [id number] Orientation: AOx4 Aggression Stop Light: green Activity: A2 and Lift, T/R q 2 hrs. Diet/BS Checks: Reg diet. Tele: NSR IV Access/Drains: L PIV SL w/int abx. Pain Management: PRN 10 mg oxy given 1x for 8/10 coccyx pain, effective. Abnormal VS/Results: VSS on RA. Bowel/Bladder: Cristobal in place. Sched suppository given, no BM this shift. Skin/Wounds: Scattered bruising throughout. Coccyx wound x3, dressings CDI. Consults: WOC, ID, Surg D/C Disposition: pending abx plan. Other Info: Seen by Pain management today - see note. * Plan of Care - Erick London RN - 05/12/2024 3:14 PM CDT Goal Outcome Evaluation: Orientation: A&Ox4 Aggression Stop Light: green Activity: A2 lift, WC at baseline Diet/BS Checks: regular Tele: NSR IV Access/Drains: R PIV SL removed today, New L. PIV SL Pain Management: 8 out of 10 pain prn oxycodone given. Dose increased from 7.5mg to 10mg. Abnormal VS/Results: VSS, Weaned from 3L NC to RA tolerated, Urine was collected for lab results pending. Bowel/Bladder: Cristobal catheter in place, incontinent of b/b Skin/Wounds: wounds on buttocks/coccyx CDI, W/C completed today dressing changes. Consults: WOMars, ID, gen surg D/C Disposition: pending Other Info: * Plan of Care - Eric Waldrop RN - 05/12/2024 6:45 AM CDT [id number] Orientation: A/Ox4 Aggression Stop Light: green Activity: Ax2 lift Diet/BS Checks: reg Tele: NSR IV Access/Drains: R PIV SL Pain Management: pre medicated wound care with 7.5mg oxy- effective. PRN Oxy given x1 for pain [id number] Abnormal VS/Results: VSS on 3L NC Bowel/Bladder: Chronic cristobal, Incontinent bowel Skin/Wounds: wounds on buttocks/coccyx CDI Consults: WOMUKESH Crews, gen surg D/C Disposition: TBD Other Info: -Wound cares done -contact precautions -refused Scheduled Senna, No BM this shift. * Plan of Care - Ana Rosa Elam, RN - 05/11/2024 6:11 PM CDT Orientation: A&Ox4 Aggression Stop Light: green Activity: A2 lift, WC at baseline Diet/BS Checks: regular Tele: NSR IV Access/Drains: R PIV SL Pain Management: 8 out of 10 pain prn oxycodone given Abnormal VS/Results: VSS on 3L NC Bowel/Bladder: incontinent of b/b Skin/Wounds: wounds on buttocks/coccyx CDI Consults: WOC, ID, gen surg D/C Disposition: pending Other Info: * Plan of Care - Franca Perez RN - 05/11/2024 2:34 PM CDT Goal Outcome Evaluation: Orientation: A&Ox4 Aggression Stop Light: Green Activity: A2 w/ Lift. WC at baseline. Diet/BS Checks: Regular Tele: Sinus Tachy IV Access/Drains: R PIV SL Pain Management: 8/10 abdominal, shoulder and coccyx pain. PO Oxycodone given 2x. Abnormal VS/Results: VSS on 3L NC Bowel/Bladder: Incontinent of B/B. 1 BM this shift. Skin/Wounds: 3 large wounds on R buttock/coccyx-- seen by WO today. Consults: WOC D/C Disposition: WOC, ID, Gen Surg, SW/CM * Plan of Care - Selene Garcia - 05/11/2024 6:22 AM CDT Orientation: A/O x 4 Aggression Stop Light: green Activity: Ax2 T/r q2 as allows, Pt prefers to be on. Diet/BS Checks: reg Tele: SR/Sinus Tachy IV Access/Drains: L PIV SL Pain Management: states pain never gets below 6-- gave 7.5mg oxy Abnormal VS/Results: VSS on 3L Bowel/Bladder: cristobal, incontinent bowel Skin/Wounds: 3 large wounds on R buttock/coccyx-- changed and packed with Kerlix soaked in NS and mepi placed on top Consults: WOC, ID, Gen Surg, SW/CM D/C Disposition: tbd Other Info: -pt arrived around 2230 last night Associated attestation - Eric Waldrop RN - 05/11/2024 6:56 AM CDT Eric Garcia RN, can attest to the Data Reduction Technician's note and assessment. Care was provided underdirect supervision of an RN * Pharmacy-Admission Medication History - Kaela Martinez RPH - 05/10/2024 7:06 PM CDT Pharmacist Admission Medication History Admission medication history is complete. The information provided in this note is only as accurateas the sources available at the time of the update. Information Source(s): Patient, Family member, and CareEverywhere/SureScripts via in-person Pertinent Information: -patient was prescribed Augmentin and Flagyl 05/07/24 x 7 days supply Changes made to BUSINESS MANAGEMENT CONSULTANT medication list: Added: Augmentin, Flagyl Deleted: potassium Changed: furosmide, metoprolol Allergies reviewed with patient and updates made in EHR: yes Medication History Completed By: Kaela Martinez RPH 05/10/2024 7:06 PM BUSINESS MANAGEMENT CONSULTANT Med List Medication Sig Last Dose acetaminophen (TYLENOL 8 HOUR ARTHRITIS PAIN) 650 MG CR tablet Take 1,300 mg by mouth 2 times dailyas needed for mild pain or fever 05/09/2024 amoxicillin-clavulanate (AUGMENTIN) 875-125 MG tablet Take 1 tablet by mouth 2 times daily 05/09/2024 Ascorbic Acid (VITAMIN C PO) Take 500 mg by mouth every evening 05/09/2024 furosemide (LASIX) 40 MG tablet Take 40 mg by mouth daily 05/09/2024 gabapentin (NEURONTIN) 300 MG capsule Take 300 mg by mouth 3 times daily 05/09/2024 lactobacillus rhamnosus, GG, (CULTURELL) capsule Take 1 capsule by mouth daily Past Week metoprolol succinate ER (TOPROL XL) 100 MG 24 hr tablet Take 1 tablet (100 mg) by mouth daily (Patient taking differently: Take 50 mg by mouth daily) 05/09/2024 metroNIDAZOLE (FLAGYL) 500 MG tablet Take 500 mg by mouth 3 times daily 05/09/2024 naproxen sodium (ANAPROX) 220 MG tablet Take 220 mg by mouth daily (with breakfast) Past Week oxyCODONE (ROXICODONE) 5 MG tablet Take 7.5 mg by mouth every 4 hours as needed for severe pain 05/10/2024 predniSONE (DELTASONE) 5 MG tablet Take 10 mg by mouth daily 05/09/2024 triamcinolone (KENALOG) 0.1 % external cream Apply topically 2 times daily as needed for irritationat prn zinc sulfate (ZINCATE) 220 (50 Zn) MG capsule Take 220 mg by mouth every evening 05/09/2024 documented in this encounter Plan of Treatment Not on file documented as of this encounter Procedures Procedure Name Priority Date/Time Associated Diagnosis Comments EXTRA GREEN TOP TUBE (LAB USE ONLY) Routine 05/24/2024 7:31 AM CDT PLATELET COUNT Routine 05/24/2024 7:31 AM CDT BASIC METABOLIC PANEL Routine 05/21/2024 7:05 AM CDT CBC WITH PLATELETS Routine 05/21/2024 7: 05 AM CDT GLUCOSE BY METER Routine 05/19/2024 10:2 1 PM CDT PHOSPHORUS Routine 05/19/2024 6:06 AM CDT MAGNESIUM Routine 05/19/2024 6:06 AM CDT BASIC METABOLIC PANEL Routine 05/19/2024 6:06 AM CDT CBC WITH PLATELETS Routine 05/19/2024 6: 06 AM CDT LAP, SURG COLOSTOMY 05/18/2024 5 :30 PM CDT Decubitus ulcer TYPE AND SCREEN, ADULT Routine 11:18 AM CDT PLATELET COUNT Routine 05/18/2024 11:18 AM CDT HEMOGLOBIN Routine 05/18/2024 11:18 AM CDT CK TOTAL Routine 05/18/2024 11:18 AM CDT ABO/RH TYPE AND SCREEN Routine 11:18 AM CDT BASIC METABOLIC PANEL Routine 05/18/2024 11:18 AM CDT MIDLINE SINGLE LUMEN PLACEMENT Routine 05/18/2024 9:15 AM CDT BASIC METABOLIC PANEL Routine 05/16/2024 8:42 AM CDT CBC WITH PLATELETS Routine 05/16/2024 8: 42 AM CDT PLATELET COUNT Routine 05/15/2024 8:46 AM CDT C. DIFFICILE TOXIN B PCR WITH REFLEX TO C. DIFFICILE ANTIGEN AND TOXINS A/B EIA Routine 05/14/2024 4:01 PM CDT BASIC METABOLIC PANEL Routine 05/13/2024 8:16 AM CDT CBC WITH PLATELETS Routine 05/13/2024 8: 16 AM CDT URINE CULTURE Routine 05/12/2024 12:20 PM CDT WBC COUNT Routine 05/11/2024 10:55 AM CDT BASIC METABOLIC PANEL Routine 05/11/2024 10:[address] CHEST/ABDOMEN/PELVIS W CONTRAST STAT 05/10/2024 4:42 PM CDT ROUTINE UA WITH MICROSCOPIC STAT 05/10/2024 4:42 PM CDT EKG 12-LEAD, TRACING ONLY STAT 05/10/2024 3:43 PM CDT BLOOD CULTURE STAT 05/10/2024 2:48 PM CDT INFLUENZA A/B, RSV, & SARS-COV2 PCR STAT 05/10/2024 2:46 PM CDT CBC WITH PLATELETS AND DIFFERENTIAL STAT 05/10/2024 2:44 PM CDT CBC WITH PLATELETS & DIFFERENTIAL STAT 05/10/2024 2:44 PM CDT LIPASE STAT 05/10/2024 2:44 PM CDT CRP INFLAMMATION STAT 05/10/2024 2:44 PM CDT COMPREHENSIVE METABOLIC PANEL STAT 05/10/2024 2:44 PM CDT CK TOTAL STAT 05/10/2024 2:44 PM CDT ISTAT GASES LACTATE VENOUS POCT STAT 05/10/2024 2:40 PM CDT documented in this encounter Results * Extra Green Top Tube (LAB USE ONLY) (05/24/2024 7:31 AM CDT) Hold Specimen 0 05/24/2024 8:21 AM CDT LABORATORY Blood STRUCTURE OF RIGHT UPPER LIMB / Unknown Venipuncture / Unknown 05/24/2024 7:31 AM CDT 05/24/2024 8:09 AM CDT Ambar Joseph MD LAB - BLOOD ORDERABL ES LABORATORY [facility] [address], [address] [place] [address], [facility] [phone] * Platelet count (05/24/2024 7:31 AM CDT) Pathologist [facility] Platelet Count 286 150 - 450 10e3/uL 05/24/2024 8:13 AM CDT LABORATORY Blood STRUCTURE OF RIGHT UPPER LIMB / Unknown Venipuncture / Unknown 05/24/2024 7:31 AM CDT 05/24/2024 8:10 AM CDT Peter Alfredo MD LAB - BLOOD ORDERABL ES LABORATORY [facility] [address], [address] [place] [address], [facility] [phone] * (ABNORMAL) CBC with platelets (05/21/2024 7:05 AM CDT) Pathologist [facility] WBC Count 11.2(H) 4.0 - 11.0 10e3/uL 05/21/2024 7:26 AM CDT LABORATORY RBC Count 3.68(L) 3.80 - 5.20 10e6/uL 05/21/2024 7:26 AM CDT LABORATORY Hemoglobin 9.5(L) 11.7 - 15.7 g/dL 05/21/2024 7:26 AM CDT LABORATORY Hematocrit 32.8(L) 35.0 - 47.0 % 05/21/2024 7:26 AM CDT LABORATORY MCV 89 78 - 100 fL 05/21/2024 7:26 AM CDT LABORATORY MCH 25.8(L) 26.5 - 33.0 pg 05/21/2024 7:26 AM CDT LABORATORY MCHC 29.0(L) 31.5 - 36.5 g/dL 05/21/2024 7:26 AM CDT LABORATORY RDW 20.2(H) 10.0 - 15.0 % 05/21/2024 7:26 AM CDT LABORATORY Platelet Count 229 150 - 450 10e3/uL 05/21/2024 7:26 AM CDT LABORATORY Blood STRUCTURE OF LEFT HAND / Unknown Venipuncture / Unknown 05/21/2024 7:05 AM CDT 05/21/2024 7:23 AM T Janak Robledo PA-C LAB - BLOOD ORDERA BLES LABORATORY [facility] [address], [address] [place] [address], [facility] [phone] * (ABNORMAL) Basic metabolic panel (05/21/2024 7:05 AM CDT) Sodium 143 135 - 145 mmol/L 05/21/2024 7:44 AM [facility] Potassium 3.4 3.4 - 5.3 mmol/L 05/21/2024 7:44 AM [facility] Chloride 104 98 - 107 mmol/L 05/21/2024 7:44 AM [facility] Carbon Dioxide (CO2) 32(H) 22 - 29 mmol/L 05/21/2024 7:44 AM [facility] Anion Gap 7 7 - 15 mmol/L 05/21/2024 7:44 AM [facility] Urea Nitrogen 31.0(H) 8.0 - 23.0 mg/dL 05/21/2024 7:44 AM [facility] Creatinine 0.44(L) 0.51 - 0.95 mg/dL 05/21/2024 7:44 AM [facility] GFR Estimate >90 >60 mL/min/1.7 3m2 05/21/2024 7:44 AM [facility] Comment:eGFR calculated usin g 2020 CKD-EPI equation. Calcium 8.6(L) 8.8 - 10.4 mg/dL 05/21/2024 7:44 AM [facility] Comment:Reference intervals for this test were [...] PA-C LAB - BLOOD ORDERA BLES LABORATORY [facility] [address], [address] [place] [address], [facility] [phone] * (ABNORMAL) Glucose by meter (05/19/2024 10:21 PM CDT) GLUCOSE BY METER POCT 157(H) 70 - 99 mg/dL 05/19/2024 10:28 PM CDT LABORATORY POC Blood, Capillary BLOOD SPECIMEN / Unknown 05/19/2024 10:21 PM CDT 05/19/2024 10:28 PM CDT Ambar oJseph MD LAB - BEAKER POCT Performing Organization Address City/[facility]/ZIP Co de Phone Number LABORATORY POC [facility] [address], [address], [place] [address], [facility] * (ABNORMAL) Phosphorus (05/19/2024 6:06 AM CDT) Phosphorus 4.8(H) 2.5 - 4.5 mg/dL 05/19/2024 7:15 AM CDT LABORATORY Blood STRUCTURE OF RIGHT UPPER LIMB / Unknown Venipuncture / Unknown 05/19/2024 6:06 AM CDT 05/19/2024 6:34 AM CDT Peter Alfredo MD LAB - BLOOD ORDERABL ES LABORATORY [facility] [address], [address] [place] [address], [facility] [phone] * Magnesium (05/19/2024 6:06 AM CDT) Magnesium 1.9 1.7 - 2.3 mg/dL 05/19/2024 7:15 AM CDT LABORATORY Blood STRUCTURE OF RIGHT UPPER LIMB / Unknown Venipuncture / Unknown 05/19/2024 6:06 AM CDT 05/19/2024 6:34 AM CDT Peter Alfredo MD LAB - BLOOD ORDERABL ES LABORATORY [facility] [address], [address] [place] [address], [facility] [phone] * (ABNORMAL) CBC with platelets (05/19/2024 6:06 AM CDT) WBC Count 12.5(H) 4.0 - 11.0 10e3/uL 05/19/2024 6:41 AM CDT LABORATORY RBC Count 3.62(L) 3.80 - 5.20 10e6/uL 05/19/2024 6:41 AM CDT LABORATORY Hemoglobin 9.4(L) 11.7 - 15.7 g/dL 05/19/2024 6:41 AM CDT LABORATORY Hematocrit 31.3(L) 35.0 - 47.0 % 05/19/2024 6:41 AM CDT LABORATORY MCV 87 78 - 100 fL 05/19/2024 6:41 AM CDT LABORATORY MCH 26.0(L) 26.5 - 33.0 pg 05/19/2024 6:41 AM CDT LABORATORY MCHC 30.0(L) 31.5 - 36.5 g/dL 05/19/2024 6:41 AM CDT LABORATORY RDW 20.2(H) 10.0 - 15.0 % 05/19/2024 6:41 AM CDT LABORATORY Platelet Count 250 150 - 450 10e3/uL 05/19/2024 6:41 AM CDT LABORATORY Blood STRUCTURE OF RIGHT UPPER LIMB / Unknown Venipuncture / Unknown 05/19/2024 6:06 AM CDT 05/19/2024 6:34 AM CDT Peter Alfredo MD LAB - BLOOD ORDERABL ES LABORATORY [facility] [address], [address] [place] [address], [facility] [phone] * (ABNORMAL) Basic metabolic panel (05/19/2024 6:06 AM CDT) Sodium 140 135 - 145 mmol/L 05/19/2024 7:15 AM CDT LABORATORY Potassium 4.6 3.4 - 5.3 mmol/L 05/19/2024 7:15 AM CDT LABORATORY Chloride 101 98 - 107 mmol/L 05/19/2024 7:15 AM CDT LABORATORY Carbon Dioxide (CO2) 31(H) 22 - 29 mmol/L 05/19/2024 7:15 AM CDT LABORATORY Anion Gap 8 7 - 15 mmol/L 05/19/2024 7:15 AM CDT LABORATORY Urea Nitrogen 18.7 8.0 - 23.0 mg/dL 05/19/2024 7:15 AM CDT LABORATORY Creatinine 0.31(L) 0.51 - 0.95 mg/dL 05/19/2024 7:15 AM CDT LABORATORY GFR Estimate >90 >60 mL/min/1.7 3m2 05/19/2024 7:15 AM T LABORATORY Comment:eGFR calculated usin g 2020 CKD-EPI equation. Calcium 8.6(L) 8.8 - 10.4 mg/dL 05/19/2024 7:15 AM T LABORATORY Comment:Reference intervals for this test were updated on 04/27/2024 to reflect our healthy population more accurately. There may be differences in the flagging of prior results with similar values performed with this method. Those prior results can be interpreted in the context of the updated reference intervals. Glucose 137(H) 70 - 99 mg/dL 05/19/2024 7:15 AM CDT LABORATORY Blood STRUCTURE OF RIGHT UPPER LIMB / Unknown Venipuncture / Unknown 05/19/2024 6:06 AM CDT 05/19/2024 6:34 AM CDT Peter Alfredo MD LAB - BLOOD ORDERABL ES LABORATORY [facility] [address], [address] [place] [address], [facility] [phone] * Adult Type and Screen (05/18/2024 11:18 AM CDT) ABO/RH(D) A POS 05/18/2024 7:11 AM CDT BLOOD BANK Antibody Screen Negative Negative 05/18/2024 7:11 AM CDT BLOOD BANK SPECIMEN EXPIRATION DATE [id number] 05/18/2024 7:11 AM CDT BLOOD BANK Blood BLOOD SPECIMEN / Unknown Venipuncture / Unknown 05/18/2024 11:18 AM CDT 05/18/2024 11:35 AM CDT Janak Robledo PA-C LAB - BLOOD BANK T EST ORDER BLOOD BANK [address] [place] [address], [facility] * (ABNORMAL) Basic metabolic panel (05/18/2024 11:18 AM CDT) Sodium 144 135 - 145 mmol/L 05/18/2024 12:01 PM CDT LABORATORY Potassium 4.3 3.4 - 5.3 mmol/L 05/18/2024 12:01 PM CDT LABORATORY Chloride 102 98 - 107 mmol/L 05/18/2024 12:01 PM CDT LABORATORY Carbon Dioxide (CO2) 32(H) 22 - 29 mmol/L 05/18/2024 12:01 PM CDT LABORATORY Anion Gap 10 7 - 15 mmol/L 05/18/2024 12:01 PM CDT LABORATORY Urea Nitrogen 19.1 8.0 - 23.0 mg/dL 05/18/2024 12:01 PM CDT LABORATORY Creatinine 0.31(L) 0.51 - 0.95 mg/dL 05/18/2024 12:01 PM CDT LABORATORY GFR Estimate >90 >60 mL/min/1.7 3m2 05/18/2024 12:01 PM CDT LABORATORY Comment:eGFR calculated usin 2020 CKD-EPI equation. Calcium 8.6(L) 8.8 - 10.4 mg/dL 05/18/2024 12:01 PM CDT LABORATORY Comment:Reference intervals for this test were updated on 04/27/2024 to reflect our healthy population more accurately. There may be differences in the flagging of prior results with similar values performed with this method. Those prior results can be interpreted in the context of the updated reference intervals. Glucose 84 70 - 99 mg/dL 05/18/2024 12:01 PM CDT LABORATORY Blood BLOOD SPECIMEN / Unknown Venipuncture / Unknown 05/18/2024 11:18 AM CDT 05/18/2024 11:35 AM CDT Janak Robledo PA-C LAB - BLOOD ORDERA BLES [facility] [address], [address], [place] [address], [facility] [phone] * (ABNORMAL) Hemoglobin (05/18/2024 11:18 AM CDT) [facility] Signature Hemoglobin 10.2(L) 11.7 - 15.7 g/dL 05/18/2024 11:39 AM CDT LABORATORY Blood BLOOD SPECIMEN / Unknown Venipuncture / Unknown 05/18/2024 11:18 AM CDT 05/18/2024 11:35 AM CDT Janak Robledo PA-C LAB - BLOOD ORDERA BLES [facility] [address], [address] [place] [address], [facility] [phone] * Platelet count (05/18/2024 11:18 AM CDT) Platelet Count 273 150 - 450 10e3/uL 05/18/2024 11:39 AM CDT LABORATORY Blood BLOOD SPECIMEN / Unknown Venipuncture / Unknown 05/18/2024 11:18 AM CDT 05/18/2024 11:35 AM CDT Peter Alfredo MD LAB - BLOOD ORDERABL ES LABORATORY [facility] [address], [address] [place] [address], [facility] [phone] * (ABNORMAL) CK total (05/18/2024 11:18 AM CDT) CK 12(L) 26 - 192 U/L 05/18/2024 12:01 PM CDT LABORATORY Blood BLOOD SPECIMEN / Unknown Venipuncture / Unknown 05/18/2024 11:18 AM CDT 05/18/2024 11:35 AM CDT Peter Alfredo MD LAB - BLOOD ORDERABL ES [facility] [address], [address] [place] [address], [facility] [phone] * Single Lumen Midline Placement (05/18/2024 9:15 AM CDT) Narrative Dede Downing RN - 05/18/2024 9:15 AM CDT Dede Downing RN ? 05/18/2024 ??9:19 AM [facility] Single Lumen Midline Placement Date/Time: 05/18/2024 9:15 AM Performed by: Dede Downing, RN Authorized by: Janak Robledo PA-C ??Indications: [...] procedure a time out was called ?? [place] Protocol: the Joint Commission [place] Protocol was followed ?? Preparation: Patient was [...] type: valved Catheter size: 4 Fr Brand: Voicebase Lot number: [id number] Placement method: MST and ultrasound Number of [...] Robledo PA-C PROCEDURE/MINOR FLEMING RGICAL ORDERABLES * (ABNORMAL) CBC with platelets (05/16/2024 8:42 AM CDT) WBC Count 15.9(H) 4.0 - 11.0 10e3/uL 05/16/2024 9:09 AM CDT LABORATORY RBC Count 3.99 3.80 - 5.20 10e6/uL 05/16/2024 9:09 AM CDT LABORATORY Hemoglobin 10.2(L) 11.7 - 15.7 g/dL 05/16/2024 9:09 AM CDT LABORATORY Hematocrit 35.0 35.0 - 47.0 % 05/16/2024 9:09 AM CDT LABORATORY MCV 88 78 - 100 fL 05/16/2024 9:09 AM CDT LABORATORY MCH 25.6(L) 26.5 - 33.0 pg 05/16/2024 9:09 AM CDT LABORATORY MCHC 29.1(L) 31.5 - 36.5 g/dL 05/16/2024 9:09 AM CDT LABORATORY RDW 20.1(H) 10.0 - 15.0 % 05/16/2024 9:09 AM CDT LABORATORY Platelet Count 285 150 - 450 10e3/uL 05/16/2024 9:09 AM T LABORATORY Blood STRUCTURE OF RIGHT UPPER LIMB / Unknown Venipuncture / Unknown 05/16/2024 8:42 AM CDT 05/16/2024 9:05 AM CDT Anna Fajardo MD LAB - BLOOD ORDERA BLES LABORATORY [facility] [address], [address] [place] [address], [facility] [phone] * (ABNORMAL) Basic metabolic panel (05/16/2024 8:42 AM CDT) Sodium 142 135 - 145 mmol/L 05/16/2024 9:27 AM CDT LABORATORY Potassium 3.7 3.4 - 5.3 mmol/L 05/16/2024 9:27 AM CDT LABORATORY Chloride 104 98 - 107 mmol/L 05/16/2024 9:27 AM CDT LABORATORY Carbon Dioxide (CO2) 31(H) 22 - 29 mmol/L 05/16/2024 9:27 AM CDT LABORATORY Anion Gap 7 7 - 15 mmol/L 05/16/2024 9:27 AM CDT LABORATORY Urea Nitrogen 27.0(H) 8.0 - 23.0 mg/dL 05/16/2024 9:27 AM CDT LABORATORY Creatinine 0.33(L) 0.51 - 0.95 mg/dL 05/16/2024 9:27 AM CDT LABORATORY GFR Estimate >90 >60 mL/min/1.7 3m2 05/16/2024 9:27 AM T LABORATORY Comment:eGFR calculated usin 2020 CKD-EPI equation. Calcium 8.9 8.8 - 10.4 mg/dL 05/16/2024 9:27 AM [facility] LABORATORY Comment:Reference intervals for this test were updated on 04/27/2024 to reflect our healthy population more accurately. There may be differences in the flagging of prior results with similar values performed with this method. Those prior results can be interpreted in the context of the updated reference intervals. Glucose 128(H) 70 - 99 mg/dL 05/16/2024 9:27 AM CDT LABORATORY Blood STRUCTURE OF RIGHT UPPER LIMB / Unknown Venipuncture / Unknown 05/16/2024 8:42 AM CDT 05/16/2024 9:05 AM CDT Anna Fajardo MD LAB - BLOOD ORDERA BLES [facility] [address], [address] [place] [address], [facility] [phone] * Platelet count (05/15/2024 8:46 AM CDT) Platelet Count 255 150 - 450 10e3/uL 05/15/2024 9:30 AM CDT LABORATORY Blood STRUCTURE OF LEFT HAND / Unknown Venipuncture / Unknown 05/15/2024 8:46 AM CDT 05/15/2024 9:22 AM CDT Peter Alfredo MD LAB - BLOOD ORDERABL ES [facility] [address], [address] [place] [address]RUST [phone] * C. difficile Toxin B PCR with [...] LABORATORY - 05/14/2024 7:39 PM CDT The Proxima Cancion Xpert C. difficile Assay, performed on the [employer] Systems, is a qualitative in vitro [...] MICRO GENERA L ORDERABLES [facility] IDD LABORATORY [facility] [address] [facility], [address] [place] [address], [facility] * (ABNORMAL) Basic metabolic panel (05/13/2024 8:16 AM CDT) Sodium 140 135 - 145 mmol/L 05/13/2024 9:14 AM CDT LABORATORY Potassium 4.1 3.4 - 5.3 mmol/L 05/13/2024 9:14 AM CDT LABORATORY Chloride 107 98 - 107 mmol/L 05/13/2024 9:14 AM CDT LABORATORY Carbon Dioxide (CO2) 27 22 - 29 mmol/L 05/13/2024 9:14 AM CDT LABORATORY Anion Gap 6(L) 7 - 15 mmol/L 05/13/2024 9:14 AM CDT LABORATORY Urea Nitrogen 20.0 8.0 - 23.0 mg/dL 05/13/2024 9:14 AM CDT LABORATORY Creatinine 0.33(L) 0.51 - 0.95 mg/dL 05/13/2024 9:14 AM CDT LABORATORY GFR Estimate >90 >60 mL/min/1.7 3m2 05/13/2024 9:14 AM CDT LABORATORY Comment:eGFR calculated usin 2020 CKD-EPI equation. Calcium 8.7(L) 8.8 - 10.4 mg/dL 05/13/2024 9:14 AM T LABORATORY Comment:Reference intervals for this test were updated on 04/27/2024 to reflect our healthy population more accurately. There may be differences in the flagging of prior results with similar values performed with this method. Those prior results can be interpreted in the context of the updated reference intervals. Glucose 94 70 - 99 mg/dL 05/13/2024 9:14 AM T LABORATORY Blood STRUCTURE OF RIGHT HAND / Unknown Venipuncture / Unknown 05/13/2024 8:16 AM CDT 05/13/2024 8:40 AM CDT Noemí Bhat MD LAB - BLOOD ORDERABL ES LABORATORY [facility] [address], [address] [place] [address], [facility] [phone] * (ABNORMAL) CBC with platelets (05/13/2024 8:16 AM CDT) WBC Count 10.0 4.0 - 11.0 10e3/uL 05/13/2024 8:45 AM CDT LABORATORY RBC Count 3.69(L) 3.80 - 5.20 10e6/uL 05/13/2024 8:45 AM CDT LABORATORY Hemoglobin 9.6(L) 11.7 - 15.7 g/dL 05/13/2024 8:45 AM CDT LABORATORY Hematocrit 33.0(L) 35.0 - 47.0 % 05/13/2024 8:45 AM CDT LABORATORY MCV 89 78 - 100 fL 05/13/2024 8:45 AM CDT LABORATORY MCH 26.0(L) 26.5 - 33.0 pg 05/13/2024 8:45 AM CDT LABORATORY MCHC 29.1(L) 31.5 - 36.5 g/dL 05/13/2024 8:45 AM CDT LABORATORY RDW 19.0(H) 10.0 - 15.0 % 05/13/2024 8:45 AM CDT LABORATORY Platelet Count 283 150 - 450 10e3/uL 05/13/2024 8:45 AM CDT LABORATORY Blood STRUCTURE OF RIGHT HAND / Unknown Venipuncture / Unknown 05/13/2024 8:16 AM CDT 05/13/2024 8:40 AM CDT Noemí Bhat MD LAB - BLOOD ORDERABL ES LABORATORY [facility] [address], [address] [place] [address], [facility] [phone] * Urine Culture (05/12/2024 12:20 PM CDT) Culture No Growth 05/13/2024 10:46 AM CDT [facility] IDD LABORATORY Urine URINE SPECIMEN OBTAINED VIA INDWELLING URINARY CATHETER / Unknown Non-blood Collection / Unknown 05/12/2024 12:20 PM CDT 05/12/2024 12:28 PM CDT Noemí Bhat MD LAB - MICRO GENERAL ORDERABLES [facility] LABORATORY [facility] [address] [facility], [address] [place] [address], [facility] * (ABNORMAL) Basic metabolic panel (05/11/2024 10:55 AM CDT) Sodium 138 135 - 145 mmol/L 05/11/2024 11:45 AM CDT LABORATORY Potassium 4.1 3.4 - 5.3 mmol/L 05/11/2024 11:45 AM CDT LABORATORY Chloride 106 98 - 107 mmol/L 05/11/2024 11:45 AM CDT LABORATORY Carbon Dioxide (CO2) 25 22 - 29 mmol/L 05/11/2024 11:45 AM CDT LABORATORY Anion Gap 7 7 - 15 mmol/L 05/11/2024 11:45 AM CDT LABORATORY Urea Nitrogen 12.0 8.0 - 23.0 mg/dL 05/11/2024 11:45 AM CDT LABORATORY Creatinine 0.29(L) 0.51 - 0.95 mg/dL 05/11/2024 11:45 AM CDT LABORATORY GFR Estimate >90 >60 mL/min/1.7 3m2 05/11/2024 11:45 AM CDT LABORATORY Comment:eGFR calculated usin 2020 CKD-EPI equation. Calcium 8.4(L) 8.8 - 10.4 mg/dL 05/11/2024 11:45 AM T LABORATORY Comment:Reference intervals for this test were updated on 04/27/2024 to reflect our healthy population more accurately. There may be differences in the flagging of prior results with similar values performed with this method. Those prior results can be interpreted in the context of the updated reference intervals. Glucose 199(H) 70 - 99 mg/dL 05/11/2024 11:45 AM CDT LABORATORY Blood STRUCTURE OF RIGHT UPPER LIMB / Unknown Venipuncture / Unknown 05/11/2024 10:55 AM CDT 05/11/2024 11:24 AM CDT Ambar Joseph MD LAB - BLOOD ORDERABL ES LABORATORY [facility] [address], [address] [place] [address], [place] [phone] * (ABNORMAL) WBC count (05/11/2024 10:55 AM CDT) WBC Count 13.4(H) 4.0 - 11.0 10e3/uL 05/11/2024 11:27 AM CDT LABORATORY Blood STRUCTURE OF RIGHT UPPER LIMB / Unknown Venipuncture / Unknown 05/11/2024 10:55 AM CDT 05/11/2024 11:24 AM CDT Ambar Joseph MD LAB - BLOOD ORDERABL ES LABORATORY [facility] [address], [address] [place] [address], [facility] [phone] * CT Chest/Abdomen/Pelvis w Contrast (05/10/2024 4:42 [...] CDT EXAM: CT CHEST/ABDOMEN/PELVIS W CONTRAST LOCATION: [facility] DATE: 05/10/2024 INDICATION: Fever, paraplegia, abdominal pain [...] 05/10/2024 EXAM: CT CHEST/ABDOMEN/PELVIS W CONTRAST LOCATION: [facility] DATE: 05/10/2024 INDICATION: Fever, paraplegia, abdominal pain [...] Chago Meadows PA-C IMG CT ORDERABLES * (ABNORMAL) UA with Microscopic (05/10/2024 4:42 PM CDT) Color Urine Yellow Colorless, Straw, Light Yellow, Yellow 05/10/2024 4:59 PM CDT LABORATORY Appearance Urine Slightly Cloudy(A) Clear 05/10/2024 4:59 PM CDT LABORATORY Glucose Urine Negative Negative mg/dL 05/10/2024 4:59 PM CDT LABORATORY Bilirubin Urine Negative Negative 4:59 PM CDT LABORATORY Ketones Urine 20(A) Negative mg/dL 05/10/2024 4:59 PM CDT LABORATORY Specific [place] Urine 1.026 1.003 - 1.035 05/10/2024 4:59 PM CDT LABORATORY Blood Urine Trace(A) Negative 05/10/2024 4:59 PM CDT LABORATORY pH Urine 5.0 5.0 - 7.0 05/10/2024 4:59 PM CDT LABORATORY Protein Albumin Urine 30(A) Negative mg/dL 05/10/2024 4:59 PM CDT LABORATORY Urobilinogen Urine Normal Normal, 2.0 mg/dL 05/10/2024 4:59 PM CDT LABORATORY Nitrite Urine Negative Negative 05/10/2024 4:59 PM CDT LABORATORY Leukocyte Esterase Urine Large(A) Negative 05/10/2024 4:59 PM CDT LABORATORY Bacteria Urine Few(A) None Seen /HPF 05/10/2024 4:59 PM CDT LABORATORY WBC Clumps Urine Present(A) None Seen /HPF 05/10/2024 4:59 PM CDT LABORATORY Mucus Urine Present(A) None Seen /LPF 05/10/2024 4:59 PM CDT LABORATORY RBC Urine 35(H) <=2 /HPF 05/10/2024 4:59 PM CDT LABORATORY WBC Urine 123(H) <=5 /HPF 05/10/2024 4:59 PM CDT LABORATORY Squamous Epithelials Urine <1 <=1 /HPF 05/10/2024 4:59 PM CDT LABORATORY Urine URINE SPECIMEN FROM URINARY CONDUIT / Unknown Non-blood Collection / Unknown 05/10/2024 4:42 PM CDT 05/10/2024 4:48 PM CDT Chago Meadows PA-C LAB - URINE ORDERABL ES LABORATORY [facility] [address], [address] [place] [address], [facility] [phone] * EKG 12-lead, tracing only (05/10/2024 3:43 PM CDT) Systolic Blood Pressure mmHg RADIOLOGY RESULTS Diastolic Blood Pressure mmHg RADIOLOGY RESULTS Ventricular Rate 103 BPM RAD IOLOGY RESULTS Atrial Rate 103 BPM RADIOLOG Y RESULTS NM Interval 144 ms RADIOLOG Y RESULTS QRS Duration 72 ms RADIOLO GY RESULTS QT 340 ms RADIOLOGY RESULTS QTc 445 ms RADIOLOGY RESULTS P Thurman 65 degrees RADIOLOGY RESULTS R AXIS 25 degrees RADIOLOGY RESULTS T Thurman 50 degrees RADIOLOGY RESULTS Interpretation ECG Sinus tachycardia Possible Left atrial enlargement Borderline ECG When compared with ECG of 12-Mar-2024 11:32, Right bundle branch block is no longer Present Confirmed by GENERATED REPORT, COMPUTER ([id number]), electronic news gathering editor BHARATH LYNN ([id number]) on 05/10/2024 3:50:14 PM RADIOLOGY RESULTS 05/10/2024 [...] - MICRO GENERAL ORDERABLES [facility] LABORATORY [facility] [address] [facility], [address] [place] [address]RUST * Symptomatic Influenza A/B, RSV, & SARS-CoV2 PCR (COVID-19) Nasopharyngeal (05/10/2024 2:46 PM CDT) Pathologist [facility] Influenza A PCR Negative Negative 05/10/2024 4:08 [...] the Xpert Xpress CoV2/Flu/RSV Assay on the Proxima Cancion GeneXpert Instrument. This test should be ordered [...] management. This test was validated by the [facility]. These laboratories are certified under the Clinical Laboratory Improvement Amendments of 1988 (CLIA-88) as qualified to perform high complexity laboratory testing. Chago Meadows PA-C LAB - MICRO GENERAL ORDERABLES LABORATORY [facility] [address], [address] [place] [address], [place] [phone] * (ABNORMAL) CK total (05/10/2024 2:44 PM CDT) CK 15(L) 26 - 192 U/L 05/10/2024 7:41 PM CDT LABORATORY Blood BLOOD SPECIMEN / Unknown Venipuncture / Unknown 05/10/2024 2:44 PM CDT 05/10/2024 3:17 PM CDT Ambar Joseph MD LAB - BLOOD ORDERABL ES Performing Organization Address City/[facility]/ZIP Co de Phone Number LABORATORY [facility] [address], [address] [place] [address], [place] [phone] * (ABNORMAL) CRP inflammation (05/10/2024 2:44 PM CDT) Pathologist [facility] CRP Inflammation 61.98(H) <5.00 mg/L 05/10/2024 7:41 PM CDT LABORATORY Blood BLOOD SPECIMEN / Unknown Venipuncture / Unknown 05/10/2024 2:44 PM CDT 05/10/2024 3:17 PM CDT Ambar Joseph MD LAB - BLOOD ORDERABL ES LABORATORY [facility] [address], [address] [place] [address], [place] [phone] * (ABNORMAL) Lipase (05/10/2024 2:44 PM CDT) Pathologist [facility] Lipase 11(L) 13 - 60 U/L 05/10/2024 3:41 PM CDT LABORATORY Blood BLOOD SPECIMEN / Unknown Venipuncture / Unknown 05/10/2024 2:44 PM CDT 05/10/2024 3:17 PM CDT Chago Meadows PA-C LAB - BLOOD ORDERABL ES LABORATORY [facility] [address], [address] [place] [address], [facility] [phone] * (ABNORMAL) CBC with platelets and differential (05/10/2024 2:44 PM CDT) [facility] WBC Count 15.6(H) 4.0 - 11.0 10e3/uL 05/10/2024 3:20 PM CDT LABORATORY RBC Count 4.08 3.80 - 5.20 10e6/uL 05/10/2024 3:20 PM CDT LABORATORY Hemoglobin 10.3(L) 11.7 - 15.7 g/dL 05/10/2024 3:20 PM CDT LABORATORY Hematocrit 35.2 35.0 - 47.0 % 05/10/2024 3:20 PM CDT LABORATORY MCV 86 78 - 100 fL 05/10/2024 3:20 PM CDT LABORATORY MCH 25.2(L) 26.5 - 33.0 pg 05/10/2024 3:20 PM CDT LABORATORY MCHC 29.3(L) 31.5 - 36.5 g/dL 05/10/2024 3:20 PM CDT LABORATORY RDW 19.1(H) 10.0 - 15.0 % 05/10/2024 3:20 PM CDT LABORATORY Platelet Count 287 150 - 450 10e3/uL 05/10/2024 3:20 PM CDT LABORATORY % Neutrophils 62 % 05/10/2024 3:20 PM CDT LABORATORY % Lymphocytes 26 % 05/10/2024 3:20 PM CDT LABORATORY % Monocytes 10 % 05/10/2024 3:20 PM CDT LABORATORY % Eosinophils 1 % 05/10/2024 3:20 PM CDT LABORATORY % Basophils 1 % 05/10/2024 3:20 PM CDT LABORATORY % Immature Granulocytes 1 % 05/10/2024 3:20 PM CDT LABORATORY NRBCs per 100 WBC 0 <1 /100 024 3:20 PM CDT LABORATORY Absolute Neutrophils 9.7(H) 1.6 - 8.3 10e3/uL 05/10/2024 3:20 PM CDT LABORATORY Absolute Lymphocytes 4.0 0.8 - 5.3 10e3/uL 05/10/2024 3:20 PM CDT LABORATORY Absolute Monocytes 1.5(H) 0.0 - 1.3 10e3/uL 05/10/2024 3:20 PM CDT LABORATORY Absolute Eosinophils 0.2 0.0 - 0.7 10e3/uL 05/10/2024 3:20 PM CDT LABORATORY Absolute Basophils 0.1 0.0 - 0.2 10e3/uL 05/10/2024 3:20 PM CDT LABORATORY Absolute Immature Granulocytes 0.1 <=0.4 10e3/uL 05/10/2024 3:20 PM CDT LABORATORY Absolute NRBCs 0.0 10e3/uL 05/10/2024 3:20 PM CDT LABORATORY Blood BLOOD SPECIMEN / Unknown Venipuncture / Unknown 05/10/2024 2:44 PM CDT 05/10/2024 3:17 PM CDT Chago Meadows PA-C LAB - BLOOD ORDERABL ES LABORATORY [facility] [address], [address] [place] [address], [facility] [phone] * (ABNORMAL) Comprehensive metabolic panel (05/10/2024 2:44 [...] 05/10/2024 3:41 PM CDT LABORATORY Comment:eGFR calculated 2020 CKD-EPI equation. Calcium 8.8 8.8 - [...] PA-C LAB - BLOOD ORDERABL ES LABORATORY [facility] [address], [address] [place] [address], [facility] [phone] * (ABNORMAL) iStat Gases (lactate) venous, POCT [...] 05/10/2024 3:19 PM CDT [place] - HERIBERTO POCT LABORATORY POC [facility] [address], [address] [place] [address], [facility] documented in this encounter Visit Diagnoses Diagnosis Osteomyelitis of coccyx- Primary Acute cystitis with hematuria Acute cystitis Osteomyelitis of coccyx Septic shock Chronic osteomyelitis Chronic osteomyelitis, site unspecified Drug-induced constipation Other constipation Loose stools Abnormal feces Chronic pain syndrome Chronic atrial fibrillation Atrial fibrillation Pressure injury of skin, unspecified injury stage, unspecified location [L89.90] Attention to colostomy (H) [Z43.3] Attention to colostomy Acute cystitis with hematuria Acute cystitis Paraplegia Pressure injury of skin, unspecified injury stage, unspecified location Chronic indwelling Cristobal catheter Other postprocedural status Chronic osteomyelitis Chronic osteomyelitis, site unspecified documented in this encounter Administered Medications Inactive Administered Medications - up to 3 most recent administrations Medication Order MAR Action Action Date Dose Rate Site 0.9% sodium chloride + KCl 20 mEq/L infusion at 100 mL/hr, Intravenous, CONTINUOUS, Starting on Fri05/10/24 at 1845, Until Fri05/11/24 at 0444 Rate/Dose Verify 05/10/2024 8:03 PM CDT 100 mL/ hr $New Bag 05/10/2024 6:51 PM CDT 100 mL/hr acetaminophen (TYLENOL) oral liquid 1,000 mg 1,000 mg, Oral, EVERY 8 HOURS, First dose on Fri05/20/24 at 0930, For 5 doses, Maximum acetaminophen dose from all sources=75 mg/kg/day not to exceed 4 grams/day. $Given 05/21/2024 9:24 AM CDT 975 mg $Given 05/21/2024 2:51 AM CDT 975 mg $Given 05/20/2024 5:09 PM CDT 975 mg acetaminophen (TYLENOL) tablet 650 mg 650 mg, Oral, EVERY 6 HOURS, First dose on Fri05/12/24 at 1600, Maximum acetaminophen dose from all sources = 75 mg/kg/day not to exceed 4 grams/day. $Given 05/18/2024 4:18 PM CDT 650 mg $Given 05/18/2024 11:34 AM CDT 650 mg $Given 05/18/2024 5:02 AM CDT 650 mg acetaminophen (TYLENOL) tablet 650 mg 650 mg, Oral, EVERY 4 HOURS PRN, other, For optimal non-opioid multimodal pain management to improve pain control., Starting on Fri05/21/24 at 0000, May give first dose 4 hours after last scheduled dose of acetaminophen (TYLENOL). Maximum acetaminophen dose from all sources = 75 mg/kg/day not to exceed 4 grams/day. $Given 05/26/2024 8:15 AM CDT 650 mg acetaminophen (TYLENOL) tablet 975 mg 975 mg, Oral, ONCE, On Fri05/10/24 at 1745, For 1 dose, Maximum acetaminophen dose from all sources = 75 mg/kg/day not to exceed 4 grams/day. $Given 05/10/2024 5:48 PM CDT 975 mg acetaminophen (TYLENOL) tablet 975 mg 975 mg, Oral, EVERY 8 HOURS, First dose on Fri05/19/24 at 0000, For 3 days, Administer for multimodal surgical pain management. Maximum acetaminophen dose from all sources = 75 mg/kg/day not to exceed 4 grams/day. $Given 05/20/2024 12:41 AM CD T 975 mg $Given 05/19/2024 3:03 PM CDT 975 mg $Given 05/19/2024 8:25 AM CDT 975 mg amoxicillin-clavulanate (AUGMENTIN) 875-125 MG per tablet 1 tablet Routine, 1 tablet, Oral, EVERY 12 HOURS SCHEDULED, First dose on Fri05/13/24 at 2000, Indications: Skin and Soft Tissue Infection $Given 05/21/2024 9:18 AM CDT 1 tablet $Given 05/20/2024 9:25 PM CDT 1 tablet $Given 05/20/2024 8:30 AM CDT 1 tablet benzocaine-menthol (CHLORASEPTIC) 6-10 MG lozenge 1 lozenge 1 lozenge, Buccal, EVERY 1 HOUR PRN, sore throat, Starting on Fri05/18/24 at 2038, For sore throat without fever. bisacodyl (DULCOLAX) suppository 10 mg 10 mg, Rectal, ONCE, On Fri05/12/24 at 1430, For 1 dose, Hold for loose stools. $Given 05/12/2024 3:43 PM CDT 10 mg bisacodyl (DULCOLAX) suppository 10 mg 10 mg, Rectal, DAILY PRN, constipation, Starting on Fri05/12/24 at 1821, If the patient has multiple NM bowel stimulant agents ordered PRN, offer in the following order per policy. Move to the next available step if the earlier step is ineffective. Step 1 - bisacodyl; Step 2 - phosphate enema. Hold for loose stools. cefTRIAXone (ROCEPHIN) 1 g vial to attach to NS 100 mL bag for ADULTS or NS 50 mL bag for PEDS Routine, 1 g, Intravenous, EVERY 12 HOURS, First dose on Fri05/11/24 at 0600, Indications: Urinary Tract Infection $05/12/2024 6:14 AM CDT 1 g $05/11/2024 5:21 PM CDT 1 g $05/11/2024 5:57 AM CDT 1 g cefTRIAXone (ROCEPHIN) 1 g vial to attach to NS 100 mL bag for ADULTS or NS 50 mL bag for PEDS STAT, 1 g, Intravenous, ONCE, On Fri05/12/24 at 1830, For 1 dose, Indications: Urinary Tract Infection $05/12/2024 6:28 PM CDT 1 g cefTRIAXone (ROCEPHIN) 2 g vial to attach to NS 100 ml bag for ADULTS or NS 50 ml bag for PEDS STAT, 2 g, Intravenous, ONCE, On Fri05/10/24 at 1705, For 1 dose, Indications: Urinary Tract Infection $05/10/2024 5:47 PM CDT 2 g clindamycin (CLEOCIN) 900 mg in 50 mL D5W intermittent infusion Routine, 900 mg, Intravenous, SEE ADMIN INSTRUCTIONS, Starting on Fri05/18/24 at 1636, Intra-Op Dose. Give every 6 hours while patient in surgery, starting 6 hours after pre-op dose., Indications: Perioperative Pharmacoprophylaxis, Pre-procedure $05/18/2024 4:53 PM CDT 900 mg 100 mL/hr DAPTOmycin (CUBICIN) 350 mg in sodium chloride 0.9 % 100 mL intermittent infusion Routine, 350 mg (rounded from 357.6 mg = 6 mg/kg ? 59.6 kg), Intravenous, EVERY 24 HOURS, First dose on Fri05/11/24 at 1000, Refrigeration needed., Indications: Bone and/or Joint Infection $05/13/2024 10:26 AM CDT 350 mg $05/12/2024 9:55 AM CDT 350 mg 190 mL/hr $05/11/2024 12:21 PM CDT 350 mg diclofenac (VOLTAREN) 1 % topical gel 4 g 4 g, Topical, 3 TIMES DAILY, First dose on Fri05/12/24 at 1600, Apply to areas around right and left shoulder colostomy 4 grams total each application Use supplied dosing card to mearsure dose. $Given 05/26/2024 12:09 PM CDT 4 g $Given 05/25/2024 10:50 PM CDT 4 g $Given 05/25/2024 6:57 PM CDT 4 g diphenhydrAMINE (BENADRYL) capsule 25 mg 25 mg, Oral, EVERY 6 HOURS PRN, itching, Starting on Fri05/13/24 at 0649, For 2 doses $Given 05/13/2024 7:16 AM C DT 25 mg diphenhydrAMINE (BENADRYL) injection 12.5 mg 12.5 mg, Intravenous, EVERY 6 HOURS PRN, itching, Starting on Fri05/18/24 at 2038, Caution to be used when administering multiple [employer] depressing meds within a short time frame. doxycycline hyclate (VIBRAMYCIN) capsule 100 mg Routine, 100 mg, Oral, EVERY 12 HOURS SCHEDULED, First dose on Fri05/13/24 at 2000, For 7 days, Administer at least 2 hours before or after aluminum, calcium, iron, zinc or magnesium containing products., Indications: Skin and Soft Tissue Infection $Given 05/20/2024 8:31 AM CDT 100 mg $Given 05/19/2024 8:23 PM CDT 100 mg $Given 05/19/2024 8:26 AM CDT 100 mg enoxaparin ANTICOAGULANT (LOVENOX) injection 40 mg 40 mg, Subcutaneous, EVERY 24 HOURS, First dose on Fri05/19/24 at 1500, Check to make sure start date/time is 12-24 hours post op unless documented complication, AND no sooner than 22 hours post op if spinal anesthesia used. Continue until discharge to home. HOLD if platelet count falls below 50% of baseline or less than 100,000/??L and notify provider. $Given 05/26/2024 2:2 6 PM CDT 40 mg $Given 05/25/2024 3:46 PM CDT 40 mg Ri ght Upper Abdomen $Given 05/24/2024 4:34 PM CDT 40 mg fentaNYL (PF) (SUBLIMAZE) injection 25 mcg 25 mcg, Intravenous, EVERY 5 MIN PRN, moderate pain, Give fentaNYL (SUBLIMAZE) first if HYDROmorphone (DILAUDID) also ordered., Starting on Fri05/18/24 at 1902, Administer fentaNYL (SUBLIMAZE) for acute pain control. Move to HYDROmorphone (DILAUDID): - IF patient has received up to 200 mcg of fentaNYL (SUBLIMAZE) OR - IF patient has received 2 doses of fentaNYL (SUBLIMAZE) AND continues to have pain score greater than or equal to six (6) or is unable to participate in post op recovery due to pain. Wait 5 minutes AFTER last fentaNYL (SUBLIMAZE) dose before administering HYDROmorphone (DILADUDID). Postop Anesthesia Phase I only. Notify Provider to assess for uncontrolled pain or analgesic side effects. DO NOT revert back to fentanyl (SUBLIMAZE) after administering HYDROmorphone (DILAUDID)., PACU $Given 05/18/2024 7:45 PM CDT 25 mcg $Given 05/18/2024 7:39 PM CDT 25 mcg furosemide (LASIX) tablet 40 mg 40 mg, Oral, DAILY, First dose on Fri05/10/24 at 2100 $Given 05/26/2024 8:59 AM CDT 40 mg $Given 05/25/2024 9:17 AM CDT 40 mg $Given 05/24/2024 9:59 AM CDT 40 mg gabapentin (NEURONTIN) capsule 300 mg 300 mg, Oral, 3 TIMES DAILY, First dose on Fri05/10/24 at 2200 $Given 05/12/2024 9:24 AM CDT 300 mg $Given 05/11/2024 9:45 PM CDT 300 mg $Given 05/11/2024 5:19 PM CDT 300 mg gabapentin (NEURONTIN) capsule 400 mg 400 mg, Oral, 3 TIMES DAILY, First dose (after last modification) on Fri05/12/24 at 1600 $Given 05/21/2024 9:18 AM CDT 400 mg $Given 05/20/2024 9:25 PM CDT 400 mg $Given 05/20/2024 2:44 PM CDT 400 mg gabapentin (NEURONTIN) capsule 600 mg 600 mg, Oral, 3 TIMES DAILY, First dose (after last modification) on Fri05/21/24 at 1600 $Given 05/24/2024 9:58 AM CDT 600 mg $Given 05/23/2024 11:05 PM CDT 600 mg $Given 05/23/2024 5:33 PM CDT 600 mg heparin ANTICOAGULANT injection 5,000 Units 5,000 Units, Subcutaneous, EVERY 8 HOURS, First dose on Fri05/10/24 at 2200, HOLD heparin IF platelet count falls below 50% baseline or less than 100,000 / ??L and notify provider. Use this product If CrCl less than 30 mL/min. High concentration heparin. Not for line flush or cath care., On hold since Fri05/18/2024 at 0755 until manually unheld $Given 05/17/2024 10:08 PM CDT 5,000 Units $Given 05/17/2024 2:06 PM CDT 5,000 Units $Given 05/17/2024 5:04 AM CDT 5,000 Units heparin ANTICOAGULANT injection 5,000 Units 5,000 Units, Subcutaneous, PRE-OP/PRE-PROCEDURE, Starting on Fri05/18/24 at 1636, For 1 dose, IF Nerve Block is planned, DELAY SubQ Heparin administration until AFTER Block is placed. IMPORTANT: IF Patient ONLY receiving a TAP Block, Nursing does NOT need to verify order with Anesthesia, and can proceed with medication administration. High concentration heparin. Not for line flush or cath care., Pre-procedure $Given 05/18/2024 5:15 PM CDT 5,000 Units HYDROmorphone (DILAUDID) injection 0.2 mg 0.2 mg, Intravenous, EVERY 5 MIN PRN, moderate pain, Starting on Fri05/18/24 at 1902, Use FentaNYL (SUBLIMAZE) first if ordered. Maximum total cumulative dose NOT to exceed 2 mg. DO NOT revert back to fentanyl (SUBLIMAZE) after administering HYDROmorphone (DILAUDID). Notify Provider to assess for uncontrolled pain or analgesic side effects., PACU $Given 05/18/2024 8:11 PM CDT 0.2 mg $Given 05/18/2024 7:55 PM CDT 0.2 mg HYDROmorphone (DILAUDID) injection 0.4 mg 0.4 mg, Intravenous, EVERY 2 HOURS PRN, severe pain, Starting on Fri05/18/24 at 2038, IF patient unable to take oral pain medication or pain not controlled with oral analgesics. Hold IV PRN opioid dose for analgesic side effects. Notify provider to assess for uncontrolled pain or analgesic side effects. $Given 05/20/2024 6:06 PM CDT 0.4 mg $Given 05/20/2024 3:36 PM CDT 0.4 mg HYDROmorphone (DILAUDID) tablet 2-4 mg 2-4 mg, Oral, EVERY 3 HOURS PRN, moderate pain, Starting on Fri05/21/24 at 1113, Moderate pain 2 mg ,, 4 mg severe pain Hold for RASS,-1 PO2<88 % SBP <100 RR<10 $Given 05/26/2024 2:26 PM CDT 4 mg $Given 05/26/2024 12:08 PM CDT 4 mg $Given 05/26/2024 8:15 AM CDT 4 mg HYDROmorphone (PF) (DILAUDID) injection 0.5 mg 0.5 mg, Intravenous, EVERY 30 MIN PRN, moderate pain, severe pain, Starting on Fri05/10/24 at 1459, For 3 doses, Notify the provider to assess for uncontrolled pain or analgesic side effects. Hold while on IV TIME RECORDER or with regular IV opioid dosing. $Given 05/10/2024 8:09 PM CDT 0.5 mg $Given 05/10/2024 3:10 PM CDT 0.5 mg hydrOXYzine HCl (ATARAX) tablet 10 mg 10 mg, Oral, 3 TIMES DAILY, First dose on Fri05/21/24 at 1600 $Given 05/24/2024 9:58 AM CDT 10 mg $Given 05/23/2024 11:05 PM CDT 10 mg $Given 05/23/2024 5:33 PM CDT 10 mg iopamidol (ISOVUE-370) solution 62 mL 62 mL, Intravenous, ONCE, On Fri05/10/24 at 1600, For 1 dose $Given 05/10/2024 4:06 PM CDT 62 mLs ketorolac (TORADOL) injection 15 mg 15 mg, Intravenous, EVERY 6 HOURS PRN, inflammatory pain, Starting on Merry 05/20/24 at 1611, For 5 days, Can cause pain on injection. If ordered intravenously (IV) : administer through a running maintenance fluid over 1 minute followed by a flush. If patient complains of pain on injection, may dilute 15-30 mg in 5 mL and push over 1 to 2 minutes. $Given 05/23/2024 11:56 AM CDT 15 mg $Given 05/22/2024 12:22 AM CDT 15 mg $Given 05/21/2024 1:59 PM CDT 15 mg lactated ringers infusion at 10 mL/hr, Intravenous, CONTINUOUS, IF patient NOT on dialysis., Pre-procedure, Starting on Fri05/18/24 at 1630, Until Fri05/18/24 at 1919 Restarted 05/18/2024 5:30 PM CDT $New Bag 05/18/2024 4:56 PM CDT 10 mL/hr lactated ringers infusion at 100 mL/hr, Intravenous, CONTINUOUS, Continue until IV catheter is weaned, PACU, Starting on Fri05/18/24 at 1930, Until Fri05/18/24 at 2038 Rate/Dose Verify 05/18/2024 7:44 PM CDT 100 mL/hr lactated ringers infusion at 75 mL/hr, Intravenous, CONTINUOUS, Change to saline lock when well tolerated., Starting on Fri05/18/24 at 2100, Until Fri05/26/24 at 1714 $New Bag 05/20/2024 10:19 AM CDT 75 mL/hr $New Bag 05/19/2024 8:18 PM CDT 75 mL/hr $New Bag 05/19/2024 8:35 AM CDT 75 mL/hr lactobacillus rhamnosus (GG) (CULTURELL) capsule 1 capsule 1 capsule, Oral, DAILY, First dose on Fri05/10/24 at 2100, Administer at least 2 hours before or after oral antibiotics. Capsules may be opened. $Given 05/26/2024 8:59 AM CDT 1 capsule $Given 05/25/2024 9:16 AM CDT 1 capsule $Given 05/24/2024 9:59 AM CDT 1 capsule Lidocaine (LIDOCARE) 4 % Patch 3 patch 3 patch, Transdermal, EVERY 24 HOURS 1999, Administer over 12 Hours, First dose on Fri05/12/24 at 2000, Apply patch(s) to cut to fit around areas of decubitus ulcers ( right hip, buttock and around colostomy siteTo prevent lidocaine toxicity, patient should be patch free for 12 hrs daily. Patches may be cut to smaller size prior to removing release liner. Reminder: Remove previous patch before applying new patch. NEVER APPLY HEAT OVER PATCH which increases absorption and may lead to local anesthetic toxicity. Do not apply over area where liposomal bupivacaine was injected for 96 hours post injection. $Patch/Med Applied 05/26/2024 8:59 AM CDT 3 patches Other (see comments) $Patch/Med Applied 05/25/2024 9:17 AM CDT 3 patches Other (see comments) $Patch/Med Applied 05/24/2024 12:56 PM CDT 3 patches Left Lower Back lidocaine (XYLOCAINE) 2 % external gel Topical, EVERY 4 HOURS PRN, mild pain, Starting on Fri05/12/24 at 1357, Use for wound care and pain associated with decubitus ulcers right hip, buttocks and sacral ok to put in wound bed lidocaine 1 % 0.1-5 mL 0.1-5 mL, Other, EVERY 1 HOUR PRN, local anesthetic for pain management with PICC insertion, Starting on Fri05/17/24 at 1235, For 72 hours, Do NOT give if patient has a history of allergy to any local anesthetic or any jamaal product. MAX dose 5 mL subcutaneous OR intradermal in divided doses as needed for PICC insertion. Do NOT use both lidocaine intradermal/subcutaneous injection and the lidocaine cream on the same site. $Given 05/18/2024 9:20 AM CDT 3 mLs linezolid (ZYVOX) infusion 600 mg Routine, 600 mg, Intravenous, ONCE, On Fri05/10/24 at 1755, For 1 dose, Indications: Bone and/or Joint Infection, Skin and Soft Tissue Infection $New Bag 05/10/2024 6:45 PM CDT 600 mg 300 mL/hr linezolid (ZYVOX) infusion 600 mg Routine, 600 mg, Intravenous, EVERY 12 HOURS, First dose on Fri05/11/24 at 0600, Indications: Osteomyelitis, Skin and Soft Tissue Infection, Urinary Tract Infection $New Bag 05/11/2024 6:40 AM CDT 600 mg loperamide (IMODIUM) capsule 2 mg 2 mg, Oral, 3 TIMES DAILY PRN, diarrhea, Starting on Fri05/14/24 at 1203, maximum: 16 mg/day $Given 05/16/2024 11:10 PM CDT 2 mg $Given 05/15/2024 10:02 AM CDT 2 mg methocarbamol (ROBAXIN) tablet 500 mg 500 mg, Oral, 4 TIMES DAILY, First dose on Fri05/20/24 at 0930 $Given 05/24/2024 9:59 AM CDT 500 mg $Given 05/23/2024 11:06 PM CDT 500 mg $Given 05/23/2024 5:33 PM CDT 500 mg metoprolol tartrate (LOPRESSOR) tablet 25 mg 25 mg, Oral, 2 TIMES DAILY, First dose on Fri05/10/24 at 2100, Hold for SBP < 110 or HR < 60 $Given 05/26/2024 8:59 AM CDT 25 mg $Given 05/25/2024 8:16 PM CDT 25 mg $Given 05/25/2024 9:16 AM CDT 25 mg metroNIDAZOLE (FLAGYL) infusion 500 mg STAT, 500 mg, Intravenous, ONCE, On Fri05/10/24 at 1750, For 1 dose, Indications: Bone and/or Joint Infection, Skin and Soft Tissue Infection $New Bag 05/10/2024 8:10 PM CDT 500 mg metroNIDAZOLE (FLAGYL) tablet 500 mg Routine, 500 mg, Oral, 2 TIMES DAILY, First dose on Fri05/11/24 at 1000, Indications: Bone and/or Joint Infection $Given 05/13/2024 9:49 AM CDT 500 mg $Given 05/12/2024 8:43 PM CDT 500 mg $Given 05/12/2024 9:24 AM CDT 500 mg multivitamin w/minerals (THERA-VIT-M) tablet 1 tablet 1 tablet, Oral, DAILY, First dose on Fri05/11/24 at 1430 $Given 05/26/2024 8:59 AM CDT 1 tablet $Given 05/25/2024 9:18 AM CDT 1 tablet $Given 05/24/2024 9:59 AM CDT 1 tablet naloxone (NARCAN) injection 0.2 mg 0.2 mg, Intravenous, EVERY 2 MIN PRN, opioid reversal, Starting on Fri05/10/24 at 2044, Administer intravenous route when available and notify [...] 2 MIN PRN, opioid reversal, Starting on Fri05/10/24 at 2043, Administer intramuscular if an intravenous route is [...] 2 MIN PRN, opioid reversal, Starting on Fri05/10/24 at 2043, Administer intravenous route when available and notify [...] 2 MIN PRN, opioid reversal, Starting on Fri05/10/24 at 2043, Administer intramuscular if an intravenous route is [...] have not improved after 4 naloxone doses. naproxen (NAPROSYN) tablet 250 mg 250 mg, Oral, 3 TIMES DAILY WITH MEALS, First dose on Fri05/12/24 at 1800, Give with food. $Given 05/16/2024 1:02 PM CDT 250 mg $Given 05/16/2024 9:14 AM CDT 250 mg $Given 05/15/2024 5:17 PM CDT 250 mg ondansetron (ZOFRAN ODT) ODT tab 4 mg 4 mg, Oral, EVERY 6 HOURS PRN, nausea, vomiting, Starting on Fri05/18/24 at 2037, This is Step 1 of nausea and vomiting management. If nausea not resolved in 15 minutes, go to Step 2 prochlorperazine (COMPAZINE). Do NOT administer if patient received granisetron (KYTRIL) pre-operatively. With dry hands, peel back foil backing and gently remove tablet. Do not push oral disintegrating tablet through foil backing. Administer immediately on tongue and oral disintegrating tablet dissolves in seconds, then swallow with saliva. Liquid not required. ondansetron (ZOFRAN) injection 4 mg 4 mg, Intravenous, EVERY 30 MIN PRN, nausea, vomiting, Administer over 2-5 Minutes, Starting on Fri05/10/24 at 1451, For 3 doses, May repeat in 30 minutes as needed, up to 3 doses. $Given 05/10/2024 3:10 PM CDT 4 mg ondansetron (ZOFRAN) injection 4 mg 4 mg, Intravenous, ONCE, Administer over 2-5 Minutes, On Fri05/18/24 at 1700, For 1 dose, Give 30 minutes prior to surgery., Pre-procedure $Given 05/18/2024 5:16 PM CDT 4 mg ondansetron (ZOFRAN) injection 4 mg 4 mg, Intravenous, EVERY 6 HOURS PRN, nausea, vomiting, Administer over 2-5 Minutes, Starting on Fri05/18/24 at 2037, Give IF patient unable to tolerate oral medication. This is Step 1 of nausea and vomiting management. If nausea not resolved in 15 minutes, go to Step 2 prochlorperazine (COMPAZINE). Do NOT administer if patient received granisetron (KYTRIL) pre-operatively. oxyCODONE (ROXICODONE) tablet 10 mg 10 mg, Oral, EVERY 4 HOURS PRN, severe pain, IF pain not managed with non-pharmacological and non-opioid interventions, Starting on Fri05/12/24 at 1402, May use concomitant with non-opioid analgesics. $Given 05/18/2024 1:19 PM CDT 10 mg $Given 05/18/2024 9:15 AM CDT 10 mg $Given 05/18/2024 5:01 AM CDT 10 mg oxyCODONE (ROXICODONE) tablet 10 mg 10 mg, Oral, EVERY 4 HOURS PRN, severe pain, Starting on Fri05/18/24 at 2038, Hold oral PRN dose for analgesic side effects. Notify provider to assess for uncontrolled pain or analgesic side effects. Hold while on IV TIME RECORDER or with regular IV opioid dosing. $Given 05/21/2024 7:37 AM CDT 10 mg $Given 05/21/2024 2:51 AM CDT 10 mg $Given 05/20/2024 10:45 PM CDT 10 mg oxyCODONE (ROXICODONE) tablet 5 mg 5 mg, Oral, EVERY 4 HOURS PRN, moderate pain, IF pain not managed with non-pharmacological and non-opioid interventions, Starting on Fri05/10/24 at 2039, May use concomitant with non-opioid analgesics. $Given 05/12/2024 12:20 PM CDT 5 mg oxyCODONE IR (ROXICODONE) half-tab 7.5 mg 7.5 mg, Oral, EVERY 4 HOURS PRN, severe pain, IF pain not managed with non-pharmacological and non-opioid interventions, Starting on Fri05/10/24 at 203, May use concomitant with non-opioid analgesics. $Given 05/12/2024 12:27 PM CDT 2.5 mg $Given 05/12/2024 6:13 AM CDT 7.5 mg $Given 05/11/2024 9:45 PM CDT 7.5 mg oxyCODONE IR (ROXICODONE) half-tab 7.5 mg 7.5 mg, Oral, EVERY 4 HOURS PRN, moderate pain, IF pain not managed with non-pharmacological and non-opioid interventions, Starting on Fri05/12/24 at 1402, May use concomitant with non-opioid analgesics. $Given 05/14/2024 6:25 AM CDT 7.5 mg polyethylene glycol (GoLYTELY) suspension 4,000 mL 4,000 mL, Oral, ONCE, On Fri05/17/24 at 1600, For 1 dose $Given 05/17/2024 4:39 PM CDT 4,000 mLs polyethylene glycol (MIRALAX) Packet 17 g 17 g, Oral, DAILY, First dose on Fri05/12/24 at 2000, 1 Packet = 17 grams. Mix each gram with at least 1/2 ounce (15 mL) of water - 8 ounces for 17 g dose, 4 ounces for 8.5 g dose, 2 ounces for 4 g dose. Follow with the same volume of water. Hold for loose stools unless being administered as part of a bowel prep regimen or bowel clean out. $Given 05/26/2024 8:59 AM CDT 17 g $Given 05/25/2024 9:17 AM CDT 17 g $Given 05/24/2024 9:57 AM CDT 17 g polyethylene glycol (MIRALAX) Packet 17 g 17 g, Oral, 2 TIMES DAILY PRN, constipation, Starting on Fri05/12/24 at 1821, If the patient has multiple PO bowel stimulant agents ordered PRN, offer in the following order per policy. Move to the next available step if the earlier step is ineffective. Step 1 - senna; Step 2 - bisacodyl; Step 3 - milk of magnesia; Step 4 - polyethylene glycol; Step 5 - magnesium citrate. 1 Packet = 17 grams. Mix each gram with at least 1/2 ounce (15 mL) of water - 8 ounces for 17 g dose, 4 ounces for 8.5 g dose, 2 ounces for 4 g dose. Follow with the same volume of water. Hold for loose stools unless being administered as part of a bowel prep regimen or bowel clean out. predniSONE (DELTASONE) tablet 10 mg 10 mg, Oral or NG Tube, DAILY, First dose on Fri05/10/24 at 2100 $Given 05/26/2024 8:59 AM CDT 10 mg $Given 05/25/2024 9:16 AM CDT 10 mg $Given 05/24/2024 9:58 AM CDT 10 mg pregabalin (LYRICA) capsule 75 mg 75 mg, Oral, 3 TIMES DAILY, First dose on Fri05/24/24 at 1600 $Given 05/26/2024 10:00 AM CDT 75 mg $Given 05/25/2024 10:47 PM CDT 75 mg $Given 05/25/2024 3:46 PM CDT 75 mg prochlorperazine (COMPAZINE) injection 5 mg 5 mg, Intravenous, EVERY 6 HOURS PRN, nausea, vomiting, Administer over 1-2 Minutes, Starting on Fri05/18/24 at 2038, This is Step 2 of nausea and vomiting management. If nausea not resolved in 15 minutes, notify provider. Saline As instructed, 72 mL, ONCE, On Fri05/10/24 at 1600, For 1 dose, This entry is for use by Radiology to intermittently used as a flush in patients receiving a CT scan. $Given 05/10/2024 4:06 PM CDT 72 mLs senna-docusate (SENOKOT-S/PERICOLACE) 8.6-50 MG per tablet 2 tablet 2 tablet, Oral or NG Tube, 2 TIMES DAILY, First dose on Fri05/10/24 at 2100, Hold for loose stools Hold for loose stools. $Given 05/26/2024 8:59 AM CDT 2 tablets $Given 05/25/2024 8:16 PM CDT 2 tablets $Given 05/25/2024 9:17 AM CDT 2 tablets sennosides (SENOKOT) tablet 1-2 tablet 1-2 tablet, Oral, 2 TIMES DAILY PRN, constipation, Starting on Fri05/12/24 at 1821, If the patient has multiple PO bowel stimulant agents ordered PRN, offer in the following order per policy. Move to the next available step if the earlier step is ineffective. Step 1 - senna; Step 2 - bisacodyl; Step 3 - milk of magnesia; Step 4 - polyethylene glycol; Step 5 - magnesium citrate. Hold for loose stools. sodium chloride (PF) 0.9% PF flush 10 mL 10 mL, Intracatheter, EVERY 8 HOURS, First dose on Fri05/17/24 at 1330, To lock peripheral midline IV catheter dormant lumen. Recommended to flush Q8H each lumen even during infusions $Given 05/26/2024 1:50 AM CDT 10 mLs $Given 05/25/2024 7:06 PM CDT 10 mLs $Given 05/25/2024 9:18 AM CDT 10 mLs sodium chloride (PF) 0.9% PF flush 10-20 mL 10-20 mL, Intracatheter, EVERY 1 MIN PRN, line flush, to flush each peripheral midline IV catheter lumen, Starting on Fri05/18/24 at 0644, 10 mL post IV meds; 20 mL post blood draw sodium chloride (PF) 0.9% PF flush 10-40 mL 10-40 mL, Intracatheter, ONCE PRN, line flush, to flush each lumen with line placement, Starting on Fri05/17/24 at 1235, For 1 dose, MAX: 10 mL per lumen. May repeat x 1 $Given 05/18/2024 9:21 AM CDT 30 mLs sodium chloride (PF) 0.9% PF flush 3 mL 3 mL, Intracatheter, EVERY 8 HOURS, First dose on Fri05/10/24 at 1435, And PRN, to lock peripheral IV dormant line. $Given 05/13/2024 6:35 AM CDT 3 mLs $Given 05/12/2024 10:27 PM CDT 3 mLs $Given 05/11/2024 2:53 PM CDT 3 mLs sodium chloride (PF) 0.9% PF flush 3 mL 3 mL, Intracatheter, EVERY 8 HOURS, First dose on Fri05/10/24 at 2100, to lock peripheral IV dormant line $Given 05/18/2024 9:27 PM CDT 3 mLs $Given 05/14/2024 2:18 PM CDT 3 mLs $Given 05/13/2024 4:26 AM CDT 3 mLs sodium chloride (PF) 0.9% PF flush 3 mL 3 mL, Intracatheter, EVERY 8 HOURS, First dose on Fri05/18/24 at 2100, to lock peripheral IV dormant line $Given 05/20/2024 10:45 PM CDT 3 mLs $Given 05/18/2024 9:26 PM CDT 3 mLs sodium chloride (PF) 0.9% PF flush 3 mL 3 mL, Intracatheter, EVERY 1 MIN PRN, line flush, other, to ensure patency or to lock dormant line, Starting on Fri05/18/24 at 2038 sodium chloride 0.9% BOLUS 500 mL Intravenous, 500 mL, ONCE, at 500 mL/hr, Administer over 1 Hours, On Fri05/10/24 at 1535, For 1 dose $New Bag 05/10/2024 4:46 PM CDT 500 mLs 500 mL/hr sodium hypochlorite (DAKINS half-strength) external solution Irrigation, 2 TIMES DAILY, First dose on Fri05/11/24 at 1030, Use with wound cares BID to buttock wounds x3 for cleansing and application to gauze for wound packing $Given 05/26/2024 12:09 PM CDT $Given 05/25/2024 9:18 AM CDT $Given 05/24/2024 12:56 PM CDT sodium phosphate (FLEET ENEMA) 1 enema 1 enema, Rectal, DAILY PRN, constipation, Starting on Fri05/12/24 at 1403, For children greater than or equal to 12 years If the patient has multiple NM bowel stimulant agents ordered PRN, offer in the following order per policy. Move to the next available step if the earlier step is ineffective. Step 1 - bisacodyl; Step 2 - phosphate enema. Hold for loose stools unless being administered as part of a bowel prep regimen prior to a procedure. vitamin C (ASCORBIC ACID) tablet 250 mg 250 mg, Oral, DAILY, First dose on Fri05/10/24 at 2200 $Given 05/25/2024 9:17 AM CDT 250 mg $Given 05/24/2024 9:59 AM CDT 250 mg $Given 05/23/2024 5:33 PM CDT 250 mg zinc sulfate (ZINCATE) capsule 220 mg 220 mg, Oral or NG Tube, EVERY EVENING, First dose on Fri05/10/24 at 2200, Dose expressed in mg zinc sulfate. $Given 05/25/2024 10:47 PM CDT 220 mg $Given 05/25/2024 12:11 AM CDT 220 mg $Given 05/23/2024 9:00 PM CDT 220 mg documented in this encounter Active and Recently Administered Medications Times are shown in CDT. Scheduled Medication Order 05/24/2024 05/25/2024 05/26/2024 diclofenac (VOLTAREN) 1 % topical gel 4 g 4 g, Topical, 3 TIMES DAILY, First dose on Fri05/12/24 at 1600, Apply to areas around right and left shoulder colostomy 4 grams total each application Use supplied dosing card to mearsure dose. 1255 ($Given - Provider: Alaina Malave RN - Comment: pt wants med applied with wound dressings)1636 (Not Given - Provider: Alaina Malave RN - Reason: Patient/family refused)2104 ($Given - Provider: Maribel Clayton RN) 0918 ($Given - Provider: Nakul Moreno, RN)1857 ($Given - Provider: Nakul Moreno RN)2250 ($Given - Provider: Mateo Henry RN) 1209 ($Given - Provider: Bertha Campbell, MEME)1600 (Canceled Entry - Provider: Orders Generic Provider - Comment: Automatically canceled at discontinue of medication order) enoxaparin ANTICOAGULANT (LOVENOX) injection 40 mg 40 mg, Subcutaneous, EVERY 24 HOURS, First dose on Fri05/19/24 at 1500, Check to make sure start date/time is 12-24 hours post op unless documented complication, AND no sooner than 22 hours post op if spinal anesthesia used. Continue until discharge to home. HOLD if platelet count falls below 50% of baseline or less than 100,000/??L and notify provider. 1634 ($Given - Provider: Alaina Malave RN) 1546 ($Given - Provider: Melvi Beyer RN) 1426 ($Given - Provider: Bertha Campbell, MEME) furosemide (LASIX) tablet 40 mg 40 mg, Oral, DAILY, First dose on Fri05/10/24 at 2100 0959 ($Given - Provider: Alaina Malave RN) 0917 ($Given - Provider: Nakul Moreno RN) 0859 ($Given - Provider: Bertha Campbell, MEME) gabapentin (NEURONTIN) capsule 600 mg (CANCELED) 600 mg, Oral, 3 TIMES DAILY, First dose (after last modification) on Fri05/21/24 at 1600 0958 ($Given - Provider: Alaina Malave RN) hydrOXYzine HCl (ATARAX) tablet 10 mg (CANCELED) 10 mg, Oral, 3 TIMES DAILY, First dose on Fri05/21/24 at 1600 0958 ($Given - Provider: Alaina Malave RN) lactobacillus rhamnosus (GG) (CULTURELL) capsule 1 capsule 1 capsule, Oral, DAILY, First dose on Fri05/10/24 at 2100, Administer at least 2 hours before or after oral antibiotics. Capsules may be opened. 0959 ($Given - Provider: Alaina Malave RN) 0916 ($Given - Provider: Nakul Moreno RN) 0859 ($Given - Provider: Bertha Campbell RN) Lidocaine (LIDOCARE) 4 % Patch 3 patch 3 patch, Transdermal, EVERY 24 HOURS 1999, Administer over 12 Hours, First dose on Fri05/12/24 at 1999, Apply patch(s) to cut to fit around areas of decubitus ulcers ( right hip, buttock and around colostomy siteTo prevent lidocaine toxicity, patient should be patch free for 12 hrs daily. Patches may be cut to smaller size prior to removing release liner. Reminder: Remove previous patch before applying new patch. NEVER APPLY HEAT OVER PATCH which increases absorption and may lead to local anesthetic toxicity. Do not apply over area where liposomal bupivacaine was injected for 96 hours post injection. 1256 ($Patch/Med Applied - Provider: Alaina Malave RN - Comment: pt wants med applied with wound dressings. around buttock) 0146 (Patch/Med Removed - Provider: Mateo Henry RN)0917 ($Patch/Med Applied - Provider: Nakul Moreno RN - Comment: lower back)2028 (Patch/Med Removed - Provider: Mateo Henry RN) 0859 ($Patch/Med Applied - Provider: Bertha Campbell RN)1513 (Due: Patch/Med Removed - Provider: Orders Generic Provider - Comment: Time automatically adjusted from order being discontinued) methocarbamol (ROBAXIN) tablet 500 mg (CANCELED) 500 mg, Oral, 4 TIMES DAILY, First dose on Fri05/20/24 at 0930 0959 ($Given - Provider: Alaina Malave RN) metoprolol tartrate (LOPRESSOR) tablet 25 mg 25 mg, Oral, 2 TIMES DAILY, First dose on Fri05/10/24 at 2100, Hold for SBP < 110 or HR < 60 0959 ($Given - Provider: Alaina Malave RN)210 ($Given - Provider: Maribel Clayton RN) 0916 ($Given - Provider: Nakul Moreno RN)2016 ($Given - Provider: Mateo Henry, MEME) 0859 ($Given - Provider: Bertha Campbell, MEME) multivitamin w/minerals (THERA-VIT-M) tablet 1 tablet 1 tablet, Oral, DAILY, First dose on Fri05/11/24 at 1430 0959 ($Given - Provider: Alaina Malave RN) 0918 ($Given - Provider: Nakul Moreno RN) 0859 ($Given - Provider: Bertha Campbell RN) naproxen (NAPROSYN) tablet 250 mg 250 mg, Oral, DAILY WITH BREAKFAST, First dose on Fri05/17/24 at 0900, Give with food., On hold since Fri05/17/2024 at 0756 until manually unheld 0900 (Automatically Held) 0900 (Automatically Held) 0900 (Automatically Held)1714 (Unheld by provider - Provider: Orders Generic Provider) polyethylene glycol (MIRALAX) Packet 17 g 17 g, Oral, DAILY, First dose on Fri05/12/24 at 2000, 1 Packet = 17 grams. Mix each gram with at least 1/2 ounce (15 mL) of water - 8 ounces for 17 g dose, 4 ounces for 8.5 g dose, 2 ounces for 4 g dose. Follow with the same volume of water. Hold for loose stools unless being administered as part of a bowel prep regimen or bowel clean out. 0957 ($Given - Provider: Alaina Malave RN) 0917 ($Given - Provider: Nakul Moreno RN) 0859 ($Given - Provider: Bertha Campbell RN) predniSONE (DELTASONE) tablet 10 mg 10 mg, Oral or NG Tube, DAILY, First dose on Fri05/10/24 at 2100 0958 ($Given - Provider: Alaina Malave RN) 0916 ($Given - Provider: Nakul Moreno RN) 0859 ($Given - Provider: Bertha Campbell, MEME) pregabalin (LYRICA) capsule 75 mg 75 mg, Oral, 3 TIMES DAILY, First dose on Fri05/24/24 at 1600 1632 ($Given - Provider: Alaina Malave RN)2101 ($Given - Provider: Maribel Clayton, MEME) 0925 ($Given - Provider: Nakul Moreno RN)1546 ($Given - Provider: Melvi Beyer RN)2247 ($Given - Provider: Mateo Henry RN) 1000 ($Given - Provider: Bertha Campbell, MEME)1600 (Canceled Entry - Provider: Orders Generic Provider - Comment: Automatically canceled at discontinue of medication order) senna-docusate (SENOKOT-S/PERICOLACE) 8.6-50 MG per tablet 2 tablet 2 tablet, Oral or NG Tube, 2 TIMES DAILY, First dose on Fri05/10/24 at 2100, Hold for loose stools Hold for loose stools. 0959 ($Given - Provider: Alaina Malave RN)2101 ($Given - Provider: Maribel Clayton, RN) 0917 ($Given - Provider: Nakul Moreno RN)2016 ($Given - Provider: Mateo Henry, MEME) 0859 ($Given - Provider: Bertha Campbell, MEME) sodium chloride (PF) 0.9% PF flush 10 mL 10 mL, Intracatheter, EVERY 8 HOURS, First dose on Fri05/17/24 at 1330, To lock peripheral midline IV catheter dormant lumen. Recommended to flush Q8H each lumen even during infusions 1003 ($Given - Provider: Alaina Malave RN)1634 ($Given - Provider: Alaina Malave RN) 0143 ($Given - Provider: Mateo Henry RN)0918 ($Given - Provider: Nakul Moreno RN)1906 ($Given - Provider: Nakul Moreno RN) 0150 ($Given - Provider: Mateo Henry RN)1211 (Canceled Entry - Provider: Bertha Campbell RN)1600 (Canceled Entry - Provider: Orders Generic Provider - Comment: Automatically canceled at discontinue of medication order) sodium hypochlorite (DAKINS half-strength) external solution Irrigation, 2 TIMES DAILY, First dose on Fri05/11/24 at 1030, Use with wound cares BID to buttock wounds x3 for cleansing and application to gauze for wound packing 1256 ($Given - Provider: Alaina Malave RN) 0058 (Not Given - Provider: Maribel Clayton, RN - Reason: Patient/family refused)0918 ($Given - Provider: Nakul Moreno RN)2055 (Not Given - Provider: Mateo Henry RN - Reason: Patient/family refused) 1209 ($Given - Provider: Bertha Campbell RN) vitamin C (ASCORBIC ACID) tablet 250 mg 250 mg, Oral, DAILY, First dose on Fri05/10/24 at 2200 0959 ($Given - Provider: Alaina Malave RN) 0917 ($Given - Provider: Nakul Moreno RN) 1211 (Canceled Entry - Provider: Bertha Campbell RN) zinc sulfate (ZINCATE) capsule 220 mg 220 mg, Oral or NG Tube, EVERY EVENING, First dose on Fri05/10/24 at 2200, Dose expressed in mg zinc sulfate. 0011 ($Given - Provider: Mateo Henry RN)2247 ($Given - Provider: Mateo Henry RN) Continuous Medication Order 05/24/2024 05/25/2024 05/26/2024 lactated ringers infusion at 75 mL/hr, Intravenous, CONTINUOUS, Change to saline lock when well tolerated., Starting on Fri05/18/24 at 2100, Until Fri05/26/24 at 1714 PRN Medication Order 05/24/2024 05/25/2024 05/26/2024 acetaminophen (TYLENOL) tablet 650 mg 650 mg, Oral, EVERY 4 HOURS PRN, other, For optimal non-opioid multimodal pain management to improve pain control., Starting on Fri05/21/24 at 0000, May give first dose 4 hours after last scheduled dose of acetaminophen (TYLENOL). Maximum acetaminophen dose from all sources = 75 mg/kg/day not to exceed 4 grams/day. 1002 (Not Given - Provider: Alaina Malave RN - Reason: Patient/family refused) 0815 ($Given - Provider: Bertha Campbell RN) benzocaine-menthol (CHLORASEPTIC) 6-10 MG lozenge 1 lozenge 1 lozenge, Buccal, EVERY 1 HOUR PRN, sore throat, Starting on Fri05/18/24 at 203, For sore throat without fever. bisacodyl (DULCOLAX) suppository 10 mg 10 mg, Rectal, DAILY PRN, constipation, Starting on Fri05/12/24 at 1821, If the patient has multiple NM bowel stimulant agents ordered PRN, offer in the following order per policy. Move to the next available step if the earlier step is ineffective. Step 1 - bisacodyl; Step 2 - phosphate enema. Hold for loose stools. calcium carbonate (TUMS) chewable tablet 1,000 mg 1,000 mg, Oral, 4 TIMES DAILY PRN, heartburn, Starting on Fri05/10/24 at 2039 diphenhydrAMINE (BENADRYL) injection 12.5 mg 12.5 mg, Intravenous, EVERY 6 HOURS PRN, itching, Starting on Fri05/18/24 at 2038, Caution to be used when administering multiple CHILD CARE GIVER depressing meds within a short time frame. HYDROmorphone (DILAUDID) tablet 2-4 mg 2-4 mg, Oral, EVERY 3 HOURS PRN, moderate pain, Starting on Fri05/21/24 at 1113, Moderate pain 2 mg ,, 4 mg severe pain Hold for RASS,-1 PO2<88 % SBP <100 RR<10 0110 ($Given - Provider: Freida Stout RN)0501 ($Given - Provider: Freida Stout RN)1040 ($Given - Provider: Alaina Malave RN)1632 ($Given - Provider: Alaina Malave RN)2101 ($Given - Provider: Maribel Clayton RN) 0011 ($Given - Provider: Mateo Henry RN)0401 ($Given - Provider: Mateo Henry RN)0917 ($Given - Provider: Nakul Moreno RN)1237 ($Given - Provider: Krista Harry RN)1545 ($Given - Provider: Melvi Beyer RN)1906 ($Given - Provider: Nakul Moreno RN)2247 ($Given - Provider: Mateo Henry RN) 0150 ($Given - Provider: Mateo Henry RN)0520 ($Given - Provider: Mateo Henry RN)0815 ($Given - Provider: Bertha Campbell RN - Comment: hip/down leg)1208 ($Given - Provider: Bertha Campbell, MEME)1426 ($Given - Provider: Bertha Campbell, MEME) lidocaine (XYLOCAINE) 2 % external gel Topical, EVERY 4 HOURS PRN, mild pain, Starting on Fri05/12/24 at 1357, Use for wound care and pain associated with decubitus ulcers right hip, buttocks and sacral ok to put in wound bed loperamide (IMODIUM) capsule 2 mg 2 mg, Oral, 3 TIMES DAILY PRN, diarrhea, Starting on Fri05/14/24 at 1203, maximum: 16 mg/day naloxone (NARCAN) injection 0.2 mg(Linked Group 1) 0.2 mg, Intravenous, EVERY 2 MIN PRN, opioid reversal, Starting on Fri05/10/24 at 2043, Administer intravenous route when available and notify [...] doses. naloxone (NARCAN) injection 0.2 mg(Linked Group 1) 0.2 mg, Intramuscular, EVERY 2 MIN PRN, opioid reversal, Starting on Fri05/10/24 at 2043, Administer intramuscular if an intravenous route is [...] doses. naloxone (NARCAN) injection 0.4 mg(Linked Group 1) 0.4 mg, Intravenous, EVERY 2 MIN PRN, opioid reversal, Starting on Fri05/10/24 at 2043, Administer intravenous route when available and notify [...] doses. naloxone (NARCAN) injection 0.4 mg(Linked Group 1) 0.4 mg, Intramuscular, EVERY 2 MIN PRN, opioid reversal, Starting on Fri05/10/24 at 2043, Administer intramuscular if an intravenous route is [...] (ZOFRAN ODT) ODT tab 4 mg(Linked Group 2) 4 mg, Oral, EVERY 6 HOURS PRN, nausea, vomiting, Starting on Fri05/18/24 at 2037, This is Step 1 of nausea and vomiting management. If nausea not resolved in 15 minutes, go to Step 2 prochlorperazine (COMPAZINE). Do NOT administer if patient received granisetron (KYTRIL) pre-operatively. With dry hands, peel back foil backing and gently remove tablet. Do not push oral disintegrating tablet through foil backing. Administer immediately on tongue and oral disintegrating tablet dissolves in seconds, then swallow with saliva. Liquid not required. ondansetron (ZOFRAN) injection 4 mg(Linked Group 2) 4 mg, Intravenous, EVERY 6 HOURS PRN, nausea, vomiting, Administer over 2-5 Minutes, Starting on Fri05/18/24 at 2037, Give IF patient unable to tolerate oral medication. This is Step 1 of nausea and vomiting management. If nausea not resolved in 15 minutes, go to Step 2 prochlorperazine (COMPAZINE). Do NOT administer if patient received granisetron (KYTRIL) pre-operatively. polyethylene glycol (MIRALAX) Packet 17 g 17 g, Oral, 2 TIMES DAILY PRN, constipation, Starting on Fri05/12/24 at 182, If the patient has multiple PO bowel stimulant agents ordered PRN, offer in the following order per policy. Move to the next available step if the earlier step is ineffective. Step 1 - senna; Step 2 - bisacodyl; Step 3 - milk of magnesia; Step 4 - polyethylene glycol; Step 5 - magnesium citrate. 1 Packet = 17 grams. Mix each gram with at least 1/2 ounce (15 mL) of water - 8 ounces for 17 g dose, 4 ounces for 8.5 g dose, 2 ounces for 4 g dose. Follow with the same volume of water. Hold for loose stools unless being administered as part of a bowel prep regimen or bowel clean out. prochlorperazine (COMPAZINE) injection 5 mg 5 mg, Intravenous, EVERY 6 HOURS PRN, nausea, vomiting, Administer over 1-2 Minutes, Starting on Fri05/18/24 at 2037, This is Step 2 of nausea and vomiting management. If nausea not resolved in 15 minutes, notify provider. sennosides (SENOKOT) tablet 1-2 tablet 1-2 tablet, Oral, 2 TIMES DAILY PRN, constipation, Starting on Fri05/12/24 at 182, If the patient has multiple PO bowel stimulant agents ordered PRN, offer in the following order per policy. Move to the next available step if the earlier step is ineffective. Step 1 - senna; Step 2 - bisacodyl; Step 3 - milk of magnesia; Step 4 - polyethylene glycol; Step 5 - magnesium citrate. Hold for loose stools. sodium chloride (PF) 0.9% PF flush 10-20 mL 10-20 mL, Intracatheter, EVERY 1 MIN PRN, line flush, to flush each peripheral midline IV catheter lumen, Starting on Fri05/18/24 at 0644, 10 mL post IV meds; 20 mL post blood draw sodium chloride (PF) 0.9% PF flush 3 mL 3 mL, Intracatheter, EVERY 1 MIN PRN, line flush, other, to ensure patency or to lock dormant line, Starting on Fri05/18/24 at 2038 sodium phosphate (FLEET ENEMA) 1 enema 1 enema, Rectal, DAILY PRN, constipation, Starting on Fri05/12/24 at 1403, For children greater than or equal to 12 years If the patient has multiple NM bowel stimulant agents ordered PRN, offer in the following order per policy. Move to the next available step if the earlier step is ineffective. Step 1 - bisacodyl; Step 2 - phosphate enema. Hold for loose stools unless being administered as part of a bowel prep regimen prior to a procedure. triamcinolone (KENALOG) 0.1 % cream Topical, 2 TIMES DAILY PRN, irritation, Starting on Fri05/16/24 at 1430, Apply to irritated skin Linked Groups Order Group 1: naloxone (NARCAN) injection 0.2 mgJump to med 0.2 mg, Intravenous, EVERY 2 MIN PRN, opioid reversal, Starting on Fri05/10/24 at 2044, Administer intravenous route when available and notify [...] 2 MIN PRN, opioid reversal, Starting on Fri05/10/24 at 2043, Administer intravenous route when available and notify [...] 2 MIN PRN, opioid reversal, Starting on Fri05/10/24 at 2043, Administer intramuscular if an intravenous route is [...] 2 MIN PRN, opioid reversal, Starting on Fri05/10/24 at 2043, Administer intramuscular if an intravenous route is [...] not improved after 4 naloxone doses. Group 2: ondansetron (ZOFRAN ODT) ODT tab 4 mgJump to med 4 mg, Oral, EVERY 6 HOURS PRN, nausea, vomiting, Starting on Fri05/18/24 at 2037, This is Step 1 of nausea and vomiting management. If nausea not resolved in 15 minutes, go to Step 2 prochlorperazine (COMPAZINE). Do NOT administer if patient received granisetron (KYTRIL) pre-operatively. With dry hands, peel back foil backing and gently remove tablet. Do not push oral disintegrating tablet through foil backing. Administer immediately on tongue and oral disintegrating tablet dissolves in seconds, then swallow with saliva. Liquid not required. Or ondansetron (ZOFRAN) injection 4 mgJump to med 4 mg, Intravenous, EVERY 6 HOURS PRN, nausea, vomiting, Administer over 2-5 Minutes, Starting on Fri05/18/24 at 2037, Give IF patient unable to tolerate oral medication. This is Step 1 of nausea and vomiting management. If nausea not resolved in 15 minutes, go to Step 2 prochlorperazine (COMPAZINE). Do NOT administer if patient received granisetron (KYTRIL) pre-operatively. 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
--- OUTSIDE RECORDS SUMMARY | 2024-07-03 18:30 | XMS_ITS | Encounter Summary ---
Author Organization [facility] Address [address] [facility] [place] [address] Care Team Providers Care Relations Liaison Name Role Phone Flo Mckeon MD Primary Care Provider [phone] Reason for Visit * Reason Onset Date Comments Prior Auth - Medication 05/21/2024 Buprenor phine patch - Approved Encounter Details Date Type Department Care Team (Late st Contact Info) Description 05/21/2024 Telephone [facility] [address] [place] [address] [address] [place] [address] Leela Degroot, AMIRAH CYBER INCIDENT ANALYST [address] [place] [address] Prior Auth - Medication (Buprenorphine patch - Approved) Social History Tobacco Use Types Packs/Day Years Used Date Smoking Tobacco: Never Assessed Adolescent Education Answer Date Record ed Getting School Help Needed Not on file 08/28 Sex and Gender Information Value Date Recorded Sex Assigned at Not on file Gender Identity Not on file Sexual Orientation Not on file documented as of this encounter Miscellaneous Notes * Telephone Encounter - Raven Deleon N - 05/21/2024 1:56 PM CDT Images from the original note were not included. Prior Authorization Approval Medication: BUPRENORPHINE 5 MCG/HR TD PTWK Authorization Effective Date: 10/13/2023 Authorization Expiration Date: 10/12/2024 Approved Dose/Quantity: 4 for 28 Reference #: [id number] Insurance Company: [employer] [phone] Expected CoPay: $ CoPay Card Available: Financial Assistance Needed: Which Pharmacy is filling the prescription: Pharmacy Notified: Patient Notified: documented in this encounter Plan of Treatment Not on file documented as of this encounter Visit Diagnoses Not on filedocumented in this encounter Additional Health Concerns Infection Onset Date Last Indicated Resolved Time 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
--- OUTSIDE RECORDS SUMMARY | 2024-07-03 18:30 | XMS_ITS | Encounter Summary ---
Author Organization [facility] Address [address] [place] [address] Care Team Providers Care Billing Clerk Name Role Phone Flo Mckeon MD Primary Care Provider [phone] Reason for Visit * Reason Onset Date Comments Prior Auth - Medication 05/21/2024 Pregabal in - Denied Encounter Details Date Type Department Care Team (Late st Contact Info) Description 05/21/2024 Telephone [facility] [address] [place] [address] [address] [place] [address] Leela Degroot, AMIRAH HEDGE FUND MANAGER [address] [place] [address] Prior Auth - Medication (Pregabalin - Denied) Social History Tobacco Use Types Packs/Day Years [...] Telephone Encounter - Raven Deleon N - 05/24/2024 11:01 AM CDT Images from the original note were not included. PRIOR AUTHORIZATION DENIED Medication: PREGABALIN 50 MG PO CAPS Insurance Company: [employer] [phone] Denial Date: 05/21/2024 Denial Reason(s): Appeal Information: Patient Notified: MEDICATION APPEAL APPROVED Medication: PREGABALIN 50 MG PO CAPS Authorization Effective Date: 10/13/2023 Authorization Expiration Date: 10/12/2024 Approved Dose/Quantity: 60 for 30 Reference #: Appeal Insurance Company: Expected CoPay: $ CoPay Card Available: Financial Assistance Needed: Filling Pharmacy: Patient Notified: Comments: documented in this encounter Plan of Treatment Not on file documented as of this encounter Visit Diagnoses Not on filedocumented in this encounter Additional Health Concerns Infection Onset Date Last Indicated Resolved Time 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
--- OUTSIDE RECORDS SUMMARY | 2024-07-03 18:30 | XMS_ITS | Encounter Summary ---
Author Organization [place] Address [address] [facility] [place] [address] Care Team Providers Care Station Mechanic Apprentice Name Role Phone Flo Mckeon MD Primary Care Provider [phone] Reason for Visit * Auth/Cert Specialty Diagnoses / Procedures Referred By Paresh palomino Referred To Contact EMERGENCY MEDICINE Diagnoses Acute cystitis with hematuria Osteomyelitis of coccyx (H) Emergency Dept [address] [place] [address] Referral ID Status Reason Start Date Expiration Date Visits Re quested Visits Authorized [id number] 1 1 Encounter Details Date Type Department Care Team (Late st Contact Info) Description 05/18/2024 5:30 PM CDT Anesthesia Event [facility] [address], [address] [place] [address] Pool Palacios DO [facility] [address] [place] [id number] Skyler Rosenthal MD [facility] [address] [id number] Anesthesia Record Procedure Summary Procedure Name Responsible Anesthesiologist Anesthesia Start Time Anesthesia Stop Time Laparoscopic diverting colostomy (Abdomen) Philip Pool Ras, DO 05/18/24 17305/18/24 191 Events Date Time Event Comment 05/18/2024 1700 LABELING SPECIALIST Ready for Procedure 173 173 An Start Anesthesia Star t is defined as when the anesthesia provider assumed care, began anesthesia prep, remained continuously present with the patient, and excludes all time for performing the pre-anesthesia evaluation. The Pre-Anesthesia Evaluation was completed before Anesthesia Start. 1730 An Start Data 1730 AN REASSESS I attest that I have identified and re-evaluated the patient immediately before the induction of anesthesia and I am satisfied that the anesthetic plan is suitable for the patient's condition and procedure. The first vital signs recorded are pre- induction. Meri Song 173 An Induction 1740 An Intubation 175 Anesthesia Ready for Procedu re 1913 MD Present 1914 AN Extubation All extubation criteria met prior to removal. 1914 an stop data 1915 An Stop Electronically signed by Mallika Foster APRN CRNA on May 18, 2024 7:17 PM Meds Name Total fentaNYL 50 mcg/mL 100 mcg HYDROmorphone 1 mg/mL 0.5 mg lidocaine 2% 80 mg propofol 10 mg/mL 120 mg propofol drip mcg/kg/min 77.05 mg rocuronium 10 mg/mL 50 mg ePHEDrine 5 mg/mL in NS 15 mg phenylephrine (CHEYANNE-SYNEPHRINE) injection 200 mcg sugammadex (BRIDION) 200mg/2mL 200 mg gentamicin (GARAMYCIN) 280 m g in sodium chloride 0.9 % 50 mL intermittent infusion 280 mg clindamycin (CLEOCIN) 900 mg in 50 mL D5 W intermittent infusion 0 mg phenylephrine 0.2 mg/mL (mcg/kg/min) dri p 0.16 mg methylPREDNISolone 500 mg 125 mg dexmedeTOMIDine (PRECEDEX) 4 mcg/mL in N aCl 25mL 12 mcg lactated ringers infusion 0 mL albumin 5% 250 mL * Agents Name O2 N2O Air Exp Sevoflurane Exp Isoflurane Exp Desflurane Ins Sevoflurane Ins Isoflurane Ins Desflurane * Blood No blood administrations on file. Lines, Drains, and Airways Type Details Placement Removal (Retired) Pressure Injury 12/02/13; 1340; Right; Buttocks; decub ulcer (pre exisitng ) 12/02/13 1340 by Yas Gonzalez RN (Retired) Pressure Injury 12/02/13; 1340; Bilateral; Buttocks; pink/red/purplish pre existing 12/02/13 1340 by Yas Gonzalez RN Negative Pressure Wound Therapy Ischial tuberosity; Posterior, Right 03/09/24 1610 by Wound 03/06/24; 0645; Ante rior, Left; Foot; Ulceration; Open, bleeding, drainage; Yes 03/06/24 0645 by Charlotte Torres RN Wound 03/06/24; 1000; Medi al; Sacrum; Pressure injury community acquired; Yes 03/06/24 1000 by Sol Beasley RN Wound 05/11/24; 0345; Righ t, Inner, Upper; Buttocks; Pressure injury community acquired; wounds in varriant healing stages; Yes; Stage 4 05/11/24 0345 by Selene Garcia Wound 05/18/24; 0900; Bilateral; Groin; Skin tear, Moisture damage 05/18/24 0900 by Patricia Barrett RN Incision/Surgical Site 05/18/24; 1839; A bdomen; LAPAROSCOPIC PORT SITES X 3 05/18/24 1839 by Charlotte French RN Colostomy 05/18/24; 1842; LLQ 05/18/24 184 2 by Charlotte French RN Urethral Catheter 05/10/24; 1645; Yes; Insertion difficulty, Wound deterioration and failed external collection device; 16 fr 05/10/24 1645 by Jenn Junior RN 05/26/24 1613 by Inpatient, Nurse Midline Catheter 05/18/24; 0912; Sing le Lumen; Red; Bard; 4 fr; Valved; [id number]; Yes; No; Yes; Right; Brachial vein medial; (3 attempts); 28 cm; 0 cm; 13 cm; No; Chlorhexidine disk, Transparent, Securement device, New dressing; 05/25/24; Yes; Axilla; ok to use 05/18/24 0912 by Dede Downing RN 05/26/24 1249 by Bertha Campbell RN ETT Placement Date: 04/05; Placement Time: 1740 (created via procedure documentation); Mask Ventilation: 2; Induction Type: Intravenous; Ease of Intubation: Easy; Technique: Video laryngoscopy; Tube Size: 6.5 mm; VL Blade Size: Walden scope 3; Grade View: 1; Adjucts: Stylet; Placement Person: SANDRA FLORES Student; Attempts: 1 05/18/24 1740 by Pool Palacios DO 05/18/24 1915 by Mallika Foster APRN CRNA Peripheral IV 05/18/24; 1800; 20 G ; B Gonzalez; Left; Upper forearm; Alcohol; 1 05/18/24 1800 by Mallika Foster APRN CRNA 05/18/24 1815 by Mallika Foster APRN CRNA documented in this encounter Social History Tobacco Use Types Packs/Day Years Used Date Smoking Tobacco: Never Assessed Adolescent Education Answer Date Record ed Getting School Help Needed Not on file 08/28 Sex and Gender Information Value Date Recorded Sex Assigned at Not on file Gender Identity Not on file Sexual Orientation Not on file documented as of this encounter OR Notes * Anesthesia Postprocedure Evaluation - Pool Palacios DO - 05/19/2024 12:25 AM CDT Patient: Prerna Major Procedure: Procedure(s): Laparoscopic diverting colostomy Anesthesia Type: General Note: Disposition: Inpatient Postop Pain Control: Uneventful Sign Out: Well controlled pain PONV: No Neuro/Psych: Uneventful Sign Out: Acceptable/Baseline neuro status Airway/Respiratory: Uneventful Sign Out: Acceptable/Baseline resp. status CV/Hemodynamics: Uneventful Sign Out: Acceptable CV status; No obvious hypovolemia; No obvious fluid overload Other NRE: NONE DID A NON-ROUTINE EVENT OCCUR? No Last vitals: Vitals Value Taken Time BP 111/50 05/18/242014 Temp 36.1 ??C (97 ??F) 05/18/241919 Pulse 76 05/18/242026 Resp 14 05/18/242026 SpO2 97 % 05/18/242028 Vitals shown include unfiled device data. Electronically Signed By: Pool Palacios DO May 19, 2024 12:25 AM * Anesthesia Procedure Notes - Meri Song - 05/18/2024 6:12 PM CDT Associated Order(s): Airway Airway Patient location during procedure: OR Procedure Start/Stop Times: 05/18/2024 5:40 PM Staff - Anesthesiologist: Pool Palacios DO LABELING SPECIALIST: Mallika Foster APRN LABELING SPECIALIST Other Anesthesia Staff: Meri Song Performed By: SRNA and LABELING SPECIALIST Consent for Airway Urgency: elective Indications and Patient Condition Indications for airway management: kwabena-procedural Induction type:intravenous Mask difficulty assessment: 2 - vent by mask + OA or adjuvant +/- NMBA Final Airway Details Final airway type: endotracheal airway Successful airway: ETT - single and Oral Endotracheal Airway Details ETT size (mm): 6.5 Cuffed: yes Successful intubation technique: video laryngoscopy VL Blade Size: Glidescope 3 Grade View of Cords: 1 Adjucts: stylet Position: Right Measured from: lips Secured at (cm): 21 Bite block used: None Post intubation assessment Placement verified by: capnometry, equal breath sounds and chest rise Number of attempts at approach: 1 Number of other approaches attempted: 0 Secured with: tape Ease of procedure: easy Dentition: Intact and Unchanged Medication(s) Administered Medication Administration Time: 05/18/2024 5:40 PM * Anesthesia Preprocedure Evaluation - Kwesi Briggs MD - 05/18/2024 3:17 PM CDT Anesthesia Pre-Procedure Evaluation Patient: Prerna Major : 1945 Procedure : Procedure(s): Laparoscopic colostomy diverting Past Medical History: Diagnosis Date Arthritis Decubitus ulcer of right ischial area Gastric ulcer History of transverse myelitis MRSA (methicillin resistant Staphylococcus aureus) 12/02/2013 Blood Neurogenic bladder Paraplegia Paroxysmal atrial fibrillation RA (rheumatoid arthritis) Sacral decubitus ulcer Past Surgical History: Procedure Laterality Date EGD Allergies Allergen Reactions Piperacillin Other (See Comments), Anaphylaxis, Rash and Unknown Tolerated augmentin, ceftriaxone, meropenem Per SNF Per patient, has tolerated Augmentin Tazobactam Anaphylaxis, Unknown, Other (See Comments) and Rash Per SNF Vancomycin Anaphylaxis and Other (See Comments) Per SNF Social History Tobacco Use Smoking status: Not on file Smokeless tobacco: Not on file Substance Use Topics Alcohol use: Not on file Wt Readings from Last 1 Encounters: 05/18/24 67 kg (147 lb 11.3 oz) Anesthesia Evaluation Pt has had prior anesthetic. History of anesthetic complications - . vocal cord paralysis per patient. 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 (+) sleep apnea, uses CPAP, vocal cord abnormalities - Hoarseness, Neurologic: Comment: Paraplegia from age 6yrs Transverse myelitis Cardiovascular: (+) Dyslipidemia hypertension- - - - - dysrhythmias, a-fib, METS/Exercise Tolerance: Hematologic: (+) anemia, Musculoskeletal: (+) arthritis, GI/Hepatic: Comment: Gastric ulcer (+) GERD, Asymptomatic on medication, Renal/Genitourinary: Comment: Neurogenic bladder Endo: (+) Chronic steroid usage for Arthritis. Psychiatric/Substance Use: (+) H/O chronic opiod use . Infectious Disease: Comment: Sacral decubitus ulcer, fecal matter via ulcer, sepsis Malignancy: Other: Physical Exam Airway Mallampati: II TM distance: > 3 FB Neck ROM: full Mouth opening: > 3 cm Respiratory Devices and Support Dental (+) Modest Abnormalities - crowns, retainers, 1 or 2 missing teeth Cardiovascular cardiovascular exam normal Pulmonary pulmonary exam normal OUTSIDE LABS: CBC: Lab Results Component Value Date WBC 15.9 (H) 05/16/2024 WBC 10.0 05/13/2024 HGB 10.2 (L) 05/18/2024 HGB 10.2 (L) 05/16/2024 HCT 35.0 05/16/2024 HCT 33.0 (L) 05/13/2024 PLT 273 05/18/2024 PLT 285 05/16/2024 BMP: Lab Results Component Value Date NA 144 05/18/2024 NA 142 05/16/2024 POTASSIUM 4.3 05/18/2024 POTASSIUM 3.7 05/16/2024 CHLORIDE 102 05/18/2024 CHLORIDE 104 05/16/2024 CO2 32 (H) 05/18/2024 CO2 31 (H) 05/16/2024 BUN 19.1 05/18/2024 BUN 27.0 (H) 05/16/2024 CR 0.31 (L) 05/18/2024 CR 0.33 (L) 05/16/2024 GLC 84 05/18/2024 GLC 128 (H) 05/16/2024 COAGS: Lab Results Component Value Date INR 1.05 12/10/2013 POC: Lab Results Component Value Date BGM 107 (H) 12/09/2013 BGM 107 (H) 12/09/2013 HEPATIC: Lab Results Component Value Date ALBUMIN 3.2 (L) 05/10/2024 PROTTOTAL 5.2 (L) 05/10/2024 ALT 9 05/10/2024 AST 17 05/10/2024 ALKPHOS 101 05/10/2024 BILITOTAL 0.4 05/10/2024 OTHER: Lab Results Component Value Date LACT 1.1 05/10/2024 A1C 6.6 (H) 03/07/2024 HOLLY 8.6 (L) 05/18/2024 MAG 2.3 12/07/2013 LIPASE 11 (L) 05/10/2024 CRP 56.1 (H) 12/10/2013 SED 28 12/11/2013 Anesthesia Plan ASA Status: 3, emergent NPO Status: NPO Appropriate Anesthesia Type: General. - Airway: ETT Induction: Intravenous. Maintenance: Balanced. Techniques and Equipment: - Airway: Video-Laryngoscope (plan to use videolaryngoscope, smaller ETT) Consents Anesthesia Plan(s) and associated risks, benefits, and realistic alternatives discussed. Questions answered and patient/home furnishings sales representative(s) expressed understanding. - Discussed: - Discussed with: Patient - Extended Intubation/Ventilatory Support Discussed: No. - Patient is DNR/DNI Status: No Use of blood products discussed: Yes. - Discussed with: Patient. - Consented: consented to blood products Reason for refusal: other. Postoperative Care Pain management: IV analgesics, Oral pain medications, Multi-modal analgesia. PONV prophylaxis: Ondansetron (or other 5HT-3), Dexamethasone or Solumedrol, Background Propofol Infusion Comments: Other Comments: Glidescope. Smaller caliber ETT. Kwesi Briggs MD I have reviewed the pertinent notes and labs in the chart from the past 30 days and (re)examined the patient. Any updates or changes from those notes are reflected in this note. documented in this encounter Plan of Treatment Not on file documented as of this encounter Procedures Procedure Name Priority Date/Time Associated Diagnosis Comments ANE AIRWAY ETT PERFORMABLE Routine 05/18/2024 5:40 PM CDT documented in this encounter Results * ANE AIRWAY ETT PERFORMABLE (05/18/2024 5:40 PM CDT) Narrative Meri Song - 05/18/2024 5:40 PM CDT Meri Song ? 05/18/2024 ??6:14 PM Airway ? Patient location during procedure: OR ? Procedure Start/Stop Times: 05/18/2024 5:40 PM Staff - ? Anesthesiologist: ??Pool Palacios, DO ? LABELING SPECIALIST: Mallika Foster APRN CRNA ? Other Anesthesia Staff: Meri Song ? Performed By: SRNA and LABELING SPECIALIST Consent for Airway ? Urgency: elective Indications [...] Time: 05/18/2024 5:40 PM Pool Palacios DO [facility] documented in this encounter Visit Diagnoses Not on filedocumented in this encounter Administered Medications Inactive Administered Medications - up to 3 most recent administrations Medication Order MAR Action Action Date Dose Rate Site albumin human 5 % injection Intravenous, CONTINUOUS PRN, Starting on Fri05/18/24 at 1756, Anesthesia Intra-op $New Bag 05/18/2024 5:56 PM CDT dexmedeTOMIDine (PRECEDEX) 4 mcg/mL in sodium chloride 0.9 % 50 mL infusion Intravenous, PRN, Starting on Fri05/18/24 at 1818, Anesthesia Intra-op $Given 05/18/2024 6:18 PM CDT 12 mcg ePHEDrine injection Intravenous, PRN, Starting on Fri05/18/24 at 1743, Anesthesia Intra-op $Given 05/18/2024 5:54 PM CDT 5 mg $Given 05/18/2024 5:43 PM CDT 10 mg fentaNYL (PF) (SUBLIMAZE) injection Intravenous, PRN, Administer over 3-5 Minutes, Starting on Fri05/18/24 at 1737, Anesthesia Intra-op $Given 05/18/2024 6:11 PM CDT 50 mcg $Given 05/18/2024 5:37 PM CDT 50 mcg gentamicin (GARAMYCIN) 280 mg in sodium chloride 0.9 % 50 mL intermittent infusion Routine, 280 mg (rounded from 270.5 mg = 5 mg/kg ? 54.1 kg Adjusted weight), Intravenous, PRE-OP/PRE-PROCEDURE, Starting on Fri05/18/24 at 1636, For 1 dose, Give first dose within 1 hour PRIOR to incision., Indications: Perioperative Pharmacoprophylaxis, Pre-procedure $New Bag 05/18/2024 5:34 PM CDT 280 mg HYDROmorphone (DILAUDID) injection Intravenous, PRN, Starting on Fri05/18/24 at 1813, Anesthesia Intra-op $Given 05/18/2024 6:13 PM CDT 0.5 mg lactated ringers infusion at 10 mL/hr, Intravenous, CONTINUOUS, IF patient NOT on dialysis., Pre-procedure, Starting on Fri05/18/24 at 1630, Until Fri05/18/24 at 1919 Restarted 05/18/2024 5:30 PM CDT $New Bag 05/18/2024 4:56 PM CDT 10 mL/hr lidocaine 2% injection (MDV) Intravenous, PRN, Starting on Fri05/18/24 at 1737, Anesthesia Intra-op $Given 05/18/2024 5:37 PM CDT 80 mg methylPREDNISolone sodium succinate (solu-MEDROL) injection Intravenous, PRN, Starting on Fri05/18/24 at 1811, Anesthesia Intra-op $Given 05/18/2024 6:11 PM CDT 125 mg phenylephrine (CHEYANNE-SYNEPHRINE) injection Intravenous, CONTINUOUS PRN, Starting on Fri05/18/24 at 1742, Anesthesia Intra-op $Bolus 05/18/2024 5:55 PM CDT 100 mcg $New Bag 05/18/2024 5:42 PM CDT 100 mcg phenylephrine 0.2 mg/mL (mcg/kg/min) drip Intravenous, CONTINUOUS PRN, Starting on Fri05/18/24 at 1754, Anesthesia Intra-op $New Bag 05/18/2024 5:54 PM CDT 0.3 mcg/kg/min 6.03 mL/hr propofol (DIPRIVAN) infusion Intravenous, CONTINUOUS PRN, Starting on Fri05/18/24 at 1754, Anesthesia Intra-op Rate/Dose Change 05/18/2024 6:24 PM CDT 50 mcg/kg/min 20.1 mL/hr $New Bag 05/18/2024 5:54 PM CDT 20 mcg/kg/min 8.04 mL/hr propofol (DIPRIVAN) injection 10 mg/mL vial Intravenous, PRN, Starting on Fri05/18/24 at 1737, Anesthesia Intra-op $Given 05/18/2024 5:37 PM CDT 120 mg rocuronium injection Intravenous, PRN, Starting on Fri05/18/24 at 1737, Anesthesia Intra-op $Given 05/18/2024 5:37 PM CDT 50 mg sugammadex (BRIDION) injection Intravenous, PRN, Starting on Fri05/18/24 at 1856, Anesthesia Intra-op $Given 05/18/2024 6:56 PM CDT 200 mg documented in this encounter Additional Health Concerns Infection Onset Date Last Indicated Resolved Time MRSA 12/02/2013 03/09/2024 documented as of this encounter Care Teams Station Mechanic Apprentice Relationship Specialty Start Date End Date Flo Mckeon MD [address] [address] PCP - General Family Medicine 03/09/24 documented as of this encounter
--- OUTSIDE RECORDS SUMMARY | 2024-07-03 18:30 | XMS_ITS | Encounter Summary ---
Author Organization [place] Address [address] [place] [address]. [place] [address] Care Team Providers Care Shellfish Harvester Name Role Phone Flo Mckeon MD Primary Care Provider [phone] Encounter Details Date Type Department Care Team ([facility] st Contact Info) Description 05/18/2024 Medical Correspondence [facility] [address] [place] [id number] Scan, Non-Provider Social History Tobacco Use Types Packs/Day Years [...] documented as of this encounter Care Teams Shellfish Harvester Relationship Specialty Start Date End Date Flo Mckeon MD [facility] [address] [place] [address] PCP - General Family Medicine 03/09/24 documented as of this encounter
[2024-07-03 18:31] LABS: Bacteria Urine Many; Squamous Epithelial Cell Urine Few (None-Few)
--- OUTSIDE RECORDS SUMMARY | 2024-07-03 18:31 | XMS_ITS | Clinical Summary ---
Author Organization [facility] Address [address] [address] Care Team Providers Care Finishing Supervisor Plastic Sheets Name Role Phone Flo Mckeon MD Primary Care Provider [phone] Source Comments You are receiving this document as you are listed as the primary care provider,follow-up provider, or the patient has been referred to you for consultation.This is in compliance with the Medicare and[facility] Hospitalcaid EHR Incentive Program,which states Providers who transition their patient to another setting of careor provider of care or refers their patient to another provider of care shouldprovide summary care record for each transition of care or referral. [employer] Medications Medication Sig Dispensed Refills Start Date End Date Status acetaminophen (TYLENOL ARTHRITIS) 650 MG controlled release tablet as needed Active furosemide (LASIX) 20 MG tablet Daily 06/11/2021 Active diphenhydrAMINE-APAP 25-500 MG tablet Bedtime as needed A ctive predniSONE (DELTASONE) 5 MG tablet 10 mg daily. 06/11/2021 Active aspirin EC 81 MG enteric coated tablet Daily Act job pseudoephedrine ([id number]) 120 MG 12 hour release tablet Daily [...] Pneumococcal 65+ Yrs (1 - PCV) 12/31/2011 RSV (1 - 1-dose 75+ series) 2021 COVID-19 Vaccine (1 - 2023- season) 2024 Influenza (#1) 2024 07/18/2009 DTaP/Tdap/Td (5 - Tdap) 04/22/2028 04/22/20 [...] Negative (Non Reactive) 06/28/2021 7:52 PM CDT [facility] Comment:Antibodies to HCV no t detected. Does not exclude the possiblity of exposure to HCV. Blood Venipuncture / Unknown 06/28/2021 2:27 PM CDT 06/28/2021 2:28 PM CDT Lorenza Q Black DO LAB_1 [facility] [address] [place] [address], [facility] from Last 3 Months or Most Recently Relevant to Health Maintenance Care Teams Finishing Supervisor Plastic Sheets Relationship Specialty Start Date End Date Flo Mckeon MD [address] [place] [address] PCP - General 06/21/21
--- OUTSIDE RECORDS SUMMARY | 2024-07-03 18:31 | XMS_ITS | Referral Summary ---
Author Organization [facility] Address [address] [place] [address] Care Team Providers Care Process Equipment Operator Name Role Phone Elsewhere, Pcp Primary Care Provider Unavailabl e Source Comments Patient records contain information from all sites at [facility]. For routine questions regarding patient records, call [phone] during business hours, M-F 8:00 AM - 5:00 PM Central Time. Record requests for emergency care only can be directed to [phone] at any time.[facility] Allergies Active Allergy Reactions Criticality Noted Date [...] 09/19/2023 Hypertension Essential Primary 09/19/2023 Corticosteroid Treatment Sensor Technician Systemic 05/2023 Paraplegia 09/19/2023 Osteoporosis 06/28/2021 Acute [...] Administration Dates Next Due DT, Pediatric 03/23/1987 Influenza, Unspecified 07/18/2009 Td Preservative Free (TENIVAC, DECAVAC) 04/22/20 15 Tdap 04/22/2018,04/22/2015 influenza trivalent vaccine (6 months and older) (PF) 07/18/2009 influenza vaccine quad (FLUZ ONE/FLUARIX) (6 months and older)(PF) 07/18/2009 Social History Tobacco Use Types Packs/Day Years Used Date Smoking Tobacco: Never Smokeless Tobacco: Never Tobacco Cessation:Counseling Given: Not Answered Alcohol Use Standard Drinks/Week Comments Defer 0 (1 standard drink = 0.6 oz pur e alcohol) [facility] Utilities Answer Date Recorded In the [...] Comments Blood Pressure 110/68 11/28/2023 8:[address] FREIGHT CONDUCTOR Pulse 76 11/28/2023 8:[address] [employer]RE[employer] CONDUCTOR Temperature 36.7 ??C (98 ??F) 11/28/2023 8:[address] [employer]RE[employer] CONDUCTOR Respiratory Rate 18 11/28/2023 8:[address] [employer]RE[employer] CONDUCTOR Oxygen Saturation 95% 11/28/2023 8:[address] [employer]RE[employer] CONDU[employer] RA Inhaled Oxygen Concentration - - Weight 58.8 kg (129 lb 9.6 oz) 11/28/2023 8:[address] FREIGHT CONDU[employer] Height 152 cm (4' 11.84) 10/19/2023 5:[address] FREIGHT CONDUCTOR Body Mass Index 25.44 10/19/2023 5:[address] FREIGHT CONDUCTOR Plan of Treatment Not on file Procedures Procedure Name Priority Date/Time Associated Diagnosis Comments BASIC METABOLIC PANEL, S/P Routine 11/04/2023 6:[address] FREIGHT CONDUCTOR Hypokalemia from Last 3 Months or Most Recently Relevant to Health Maintenance Results * (ABNORMAL) Basic Metabolic Panel (11/04/2023 6:[address] FREIGHT CONDUCTOR) Potassium, P 4.1 3.6 - 5.2 mmol/L 11/04/2023 8:[address] FREIGHT CONDUCTOR NPRG Sodium, P 142 135 - 145 mmol/L 11/04/2023 8:[address] [employer]RE[employer]DU[employer] NPRG Chloride, P 102 98 - 107 mmol/L 11/04/2023 8:[address] FREIGHT CONDU[employer] NPRG Bicarbonate, P 30(H) 22 - 29 mmol/L 11/04/2023 8:[address] [employer]RE[employer]DU[employer] NPRG Anion Gap, P 10 7 - 15 11/04/2023 8:[address] FREIGHT CONDUCTOR NPRG BUN (Blood Urea Nitrogen), P 21 6 - 21 mg/dL 11/04/2023 8:[address] FREIGHT CONDUCTOR NPRG Creatinine 0.28(L) 0.59 - 1.04 mg/dL 11/04/2023 8:[address] FREIGHT CONDUCTOR NPRG Estimated GFR (eGFR) >90 >=60 mL/min/BSA 11/04/2023 8:[address] [employer]RE[employer] CONDU[employer] [facility] Comment: Estimated GFR calculated using the 2020 CKD_EPI creatinine equation. Calcium, Total, P 9.1 8.8 - 10.2 mg/dL 11/04/2023 8:[address] FREIGHT CONDUCTOR NPRG Glucose, P 79 70 - 140 mg/dL 11/04/2023 8:[address] FREIGHT CONDUCTOR NPRG Blood (Blood, Venous) 11/04/2023 6:[address] FREIGHT CONDUCTOR 11/04/2023 7:[address] FREIGHT CONDUCTOR Osiris Otero APRN [employer] LAB BLOOD A DD-ON [facility] [address] [place] [address], [facility] NPRG [facility] [address] [place] [address] from Last 3 Months or Most Recently Relevant to Health Maintenance Advance Directives For more information, please contact: [phone] Documents on File Type Date Recorded Patient Classroom Paraprofessional Expl anation Advance Directives 09/19/2023 4:06 PM POLS T/MOLST * DNR/DNI (Latest Code Status on File) Date Activated Date Inactivated Comments 10/19/2023 6:50 PM 10/27/2023 4:16 PM * Full Code Date Activated Date Inactivated Comments 10/19/2023 2:13 AM 10/19/2023 6:50 PM Question Answer Comments Full Code: Discussed Care Teams Process Equipment Operator Relationship Specialty Start Date End Date Elsewhere, Pcp PCP - General Internal Medicine 12/09/23
--- OUTSIDE RECORDS SUMMARY | 2024-07-03 18:31 | XMS_ITS | Encounter Summary ---
Author Organization [facility] Address [address] [place] [address] Care Team Providers Care Dictaphone Typist Name Role Phone Flo Mckeon MD Primary Care Provider Encounter Details Date Type Department Care Team (Latest Contact Info) Description 05/10/2024 Travel Social History Tobacco Use Types Packs/Day [...] COVID-19 05/10/2024 05/10/2024 05/10/2024 4:08 PM CDT documented as of this encounter Care Teams Dictaphone Typist Relationship Specialty Start Date End Date Flo Mckeon MD [address] [address] PCP - General Family Medicine 03/09/24 documented as of this encounter
--- OUTSIDE RECORDS SUMMARY | 2024-07-03 18:31 | XMS_ITS | Continuity of Care Document ---
Author Organization [facility] Address [address] [place] [address] Phone Care Team Providers Care Cash Analyst Name Role Phone Susan Guerrero Unavailable Unavail [...] Copied on Encounter [facility], [address], [place], [place], [id number], [place] tel:[phone] [facility] No Information 6 Pandiscio Susan. [facility], [address] [place] [address], [address], [place], [place], [id number], [place]. tel:[phone] Office/Outpat ient Visit,[facility], [address] [facility] [address], [place], [address], [place] tel:[phone] [facility] No Information 4 Pandiscio Susan. [facility], [address], [address], [place], [place], [id number], [place]. tel:[phone] Referring Provider: Freida Doe, [facility] [address] [place], [address]. tel:[phone] Family History Family Member Type Diagnosis Age At Onset No Information Payers Payer name Insurance type Covered democrat ID Authoriza tion(s) No Information Social History [...]
--- OUTSIDE RECORDS SUMMARY | 2024-07-03 18:31 | XMS_ITS | Clinical Summary ---
Author Organization [facility] Address [address] [place] [address] Care Team Providers Care Leadership Recruiter Name Role Phone Elsewhere, Pcp Primary Care Provider Unavailabl e Source Comments Patient records contain information from all sites at [facility]. For routine questions regarding patient records, call [phone] during business hours, M-F 8:00 AM - 5:00 PM Central Time. Record requests for emergency care only can be directed to [phone] at any time.[facility] Allergies Active Allergy Reactions Criticality Noted [...] 09/19/2023 Hypertension Essential Primary 09/19/2023 Corticosteroid Treatment Lead Tinner Systemic 05/2023 Paraplegia 09/19/2023 Osteoporosis 06/28/2021 Acute [...] your living situation today? I have a [facility] place to live 10/19/2023 Sex and Gender Information Value Date Recorded Sex Assigned at Not on file Gender Identity Not on file Sexual Orientation Not on file Last Filed Vital Signs Vital Sign Reading Time Taken Comments Blood Pressure 110/68 11/28/2023 8:43 AM SYSTEMS DEVELOPMENT MANAGER Pulse 76 11/28/2023 8:43 AM SYSTEMS DEVELOPMENT MANAGER Temperature 36.7 ??C (98 ??F) 11/28/2023 8:43 AM SYSTEMS DEVELOPMENT MANAGER Respiratory Rate 18 11/28/2023 8:43 AM SYSTEMS DEVELOPMENT MANAGER Oxygen Saturation 95% 11/28/2023 8:43 AM SYSTEMS DEVELOPMENT MANAGER RA Inhaled Oxygen Concentration - - Weight 58.8 kg (129 lb 9.6 oz) 11/28/2023 8:43 A M SYSTEMS DEVELOPMENT MANAGER Height 152 cm (4' 11.84) 10/19/2023 5:00 AM SYSTEMS DEVELOPMENT MANAGER Body Mass Index 25.44 10/19/2023 5:00 AM SYSTEMS DEVELOPMENT MANAGER Plan of Treatment Health Maintenance Due Date Last Done Comments Hepatitis C Screening 1945 COVID-19 Vaccine (#1) 12/31/1950 Pneumococcal vaccine (65+ ye ars) (1 of 2 - PCV) 1952 Zoster Vaccines (1 of 2) 1965 RSV vaccine - (32-3 6 weeks) or 60+ years (1 - 1-dose 75+ series) 2021 Depression Screening (Annual PHQ-2) 10/13/2023 Influenza Vaccine (#1) 2024 9, 07/18/2009, 07/18/2009 Creatinine Level (Kidney Fun ction Test) 11/04/2024 [...] METABOLIC PANEL, S/P Routine 11/04/2023 6:52 AM SYSTEMS DEVELOPMENT MANAGER Hypokalemia from Last 3 Months or Most Recently Relevant to Health Maintenance Results * (ABNORMAL) Basic Metabolic Panel (11/04/2023 6:52 AM SYSTEMS DEVELOPMENT MANAGER) Potassium, P 4.1 3.6 - 5.2 mmol/L 11/04/2023 8:14 AM SYSTEMS DEVELOPMENT MANAGER NPRG Sodium, P 142 135 - 145 mmol/L 11/04/2023 8:14 AM SYSTEMS DEVELOPMENT MANAGER NPRG Chloride, P 102 98 - 107 mmol/L 11/04/2023 8:14 AM SYSTEMS DEVELOPMENT MANAGER NPRG Bicarbonate, P 30(H) 22 - 29 mmol/L 11/04/2023 8:14 AM SYSTEMS DEVELOPMENT MANAGER NPRG Anion Gap, P 10 7 - 15 11/04/2023 8:14 AM SYSTEMS DEVELOPMENT MANAGER NPRG BUN (Blood Urea Nitrogen), P 21 6 - 21 mg/dL 11/04/2023 8:14 AM SYSTEMS DEVELOPMENT MANAGER NPRG Creatinine 0.28(L) 0.59 - 1.04 mg/dL 11/04/2023 8:14 AM SYSTEMS DEVELOPMENT MANAGER NPRG Estimated GFR (eGFR) >90 >=60 mL/min/BSA 11/04/2023 8:14 AM SYSTEMS DEVELOPMENT MANAGER NPRG Comment: Estimated GFR calculated using the 2020 CKD_EPI creatinine equation. Calcium, Total, P 9.1 8.8 - 10.2 mg/dL 11/04/2023 8:14 AM SYSTEMS DEVELOPMENT MANAGER NPRG Glucose, P 79 70 - 140 mg/dL 11/04/2023 8:14 AM SYSTEMS DEVELOPMENT MANAGER NPRG Blood (Blood, Venous) 11/04/2023 6:52 AM SYSTEMS DEVELOPMENT MANAGER 11/04/2023 7:43 AM SYSTEMS DEVELOPMENT MANAGER Osiris Otero APRN C.N.P. LAB BLOOD A DD-ON [facility] [address] [place] [address], [place] NPRG [facility] [address] [place] [address] from Last 3 Months or Most Recently Relevant to Health Maintenance Advance Directives For more information, please contact: [phone] Documents on File Type Date Recorded Patient Cable Splicing Technician Expl anation Advance Directives 09/19/2023 4:06 PM POLS T/MOLST * DNR/DNI (Latest Code Status on File) Date Activated Date Inactivated Comments 10/19/2023 6:50 PM 10/27/2023 4:16 PM * Full Code Date Activated Date Inactivated Comments 10/19/2023 2:13 AM 10/19/2023 6:50 PM Question Answer Comments Full Code: Discussed Care Teams Leadership Recruiter Relationship Specialty Start Date End Date Elsewhere, Pcp PCP - General Internal Medicine 12/09/23
--- OUTSIDE RECORDS SUMMARY | 2024-07-03 18:31 | XMS_ITS ---
Author Organization [facility] Address [address] [place] [address] Care Team Providers Care Creative Engagement Director Name Role Phone Flo Mckeon MD Primary Care Provider [phone] Transitional Care Management Status:Closed (Closed) Start date:03/15/2024 Enrollment date:03/16/2024 End date:03/29/2024 Close reason:Goals met Continued Care and Services Coordination
--- OUTSIDE RECORDS SUMMARY | 2024-07-03 18:31 | XMS_ITS | Encounter Summary ---
Author Organization Dwight Address [facility] [place] [address] Care Team Providers Care Die Polisher Name Role Phone Flo Mckeon MD Primary Care Provider Reason for Visit * Reason Comments Wound Infection * Auth/Cert Specialty Diagnoses / Procedures Referred By Contac t Referred To Contact EMERGENCY MEDICINE Diagnoses Acute cystitis with hematuria Osteomyelitis of coccyx (H) Emergency Dept [address] [facility] [place] [address] Referral ID Status Reason Start Date Expiration Date Visits Re quested Visits Authorized [id number] 1 1 Encounter Details Date Type Department Care Team (Late st Contact Info) Description 05/18/2024 5:29 PM CDT - 05/18/2024 8:14 PM CDT Surgery [facility] PeriOP Services [address] [place] [address] Peter Alfredo MD [facility] [address] [facility] [place] [id number] Laparoscopic diverting colostomy Surgery Details Date/Time Status Location OR Service Patient Class Case Cl ass Case Type Trauma Case? 05/18/24 5:29 PM Posted OR OR M 42 Cora-Rectal Inpatient NEST 4 - Urgent (within 12hrs) Panel 1 Procedure LRB Anes Op Region Wound Class Comments Laparoscopic diverting colostomy N/A General Abdomen II-Clean Contaminated Surgeon Surgeon Role Service Panel Peter Alfredo MD Primary Cora-Rectal 1 documented in this encounter Social History Tobacco [...] Sign Reading Time Taken Comments Blood Pressure 113/48 05/18/2024 8:00 PM CDT Pulse 75 05/18/2024 8:11 PM CDT Temperature 36.1 ??C (97 ??F) 05/18/2024 7:20 PM CDT Respiratory Rate 15 05/18/2024 8:11 PM CDT Oxygen Saturation 98% 05/18/2024 8:11 PM CDT Inhaled Oxygen Concentration - - Weight 67 kg (147 lb 11.3 oz) 05/18/2024 4:54 AM CDT Height 152.4 cm (5') 05/10/2024 8:52 PM CDT Body Mass Index 26.31 05/10/2024 8:52 PM CDT documented in this encounter Discharge Summaries * Forrest Garcia DO - 05/26/2024 1:09 PM CDT [facility] Hospitalist Discharge Summary Date of Admission: 05/10/2024 [...] recommended labs and tests Follow up with prison physician. The following labs/tests are recommended: CBC [...] FROILAN Robles at [facility] clinic on 06/08/24 at 11:00 am for a stoma check. Follow up with Dr. Alfredo at [facility] clinic on 07/07/24 at 1:40 pm for a post-op visit. Call the office at [phone] if you need to reschedule either appointment. Clinic address: [facility] [place] [address] Patient to contact the CRS office at [phone] if not has an appointment already. Unresulted [...] History of MRSA infection. -Recent admission at [facility] between 03/07-03/14/2024 for septic shock secondary to E. coli UTI with bacteremia, readmitted at [facility] on 03/21/2024 with severe sepsis and another admission at [facility] between 03/24-03/31 2024 -Presented here with abdominal [...] fibrillation not on anticoagulation. # Hypertension - INDUSTRIAL ELECTRICIAN Lasix held on admission. Restarted on 05/12/2024 - Continue INDUSTRIAL ELECTRICIAN Toprol, switch to immediate release 25 mg twice daily with hold parameters. - INDUSTRIAL ELECTRICIAN not on aspirin or statin. Defer further cardiac workup to outpatient. # Hypokalemia-resolved -Replace per protocol # Obstructive sleep apnea -Uses BiPAP as outpt. Has chronic CO2 retention. -BiPAP per home settings. # Rheumatoid arthritis -Continue on INDUSTRIAL ELECTRICIAN on prednisone 10 mg daily. # Chronic Anemia likely secondary to chronic disease. -Baseline hemoglobin 9-10 range. -Hemoglobin at around previous baseline. # Incidental renal stones. CT - No hydronephrosis. Nonobstructive right renal pelvic stones including 13 mm right UPJ calculus. - Recommend follow-up with urology as outpatient if symptomatic. # Diabetes mellitus with a hemoglobin A1c of 6.6. -INDUSTRIAL ELECTRICIAN not on meds. BS are 94 - [...] intubation OK Time Spent on this Encounter IForrest DO, personally saw the patient today and spent greater than 30 minutes discharging this patient. Forrest Garcia DO [facility] [address] [facility] [address] Physical Exam Vital Signs: Temp: 98.9 ??F [...] FROILAN Robles at Colon [facility] Rectal [facility] on 06/08/24 at 11:00 am for a stoma check. Follow up with Dr. Alfredo at [facility] on 07/07/24 at 1:40 pm for a post-op visit. Call the office at [phone] if youneed to reschedule either appointment. Clinic address: [facility] [address] [place] [address] Patient to contact the CRS office at [phone] if not has an appointment already. General info for SNF Length of Stay Estimate: Short Term Care: Estimated # of Days <30 Condition at Discharge: Stable Level of care:skilled Rehabilitation Potential: Fair Admission H&P remains valid and up-to-date: Yes Recent Chemotherapy: N/A Use Retirement Standing Orders: Yes Mantoux instructions Give two-step Mantoux (PPD) Per Facility Policy Yes Follow Up and recommended labs and tests Follow up with prison physician. The following labs/tests are recommended: CBC [...] Narrative EXAM: CT CHEST/ABDOMEN/PELVIS W CONTRAST LOCATION: [facility] DATE: 05/10/2024 INDICATION: Fever, paraplegia, abdominal pain [...] from the original note were not included. [facility] Hospitalist PROGRESS NOTE Date of Admission: 05/10/2024 [...] Patient to contact the CRS office at [phone] if not has an appointment already. Unresulted [...] to pursue diverting colectomy while inpatient. --Admitted [facility] on 03/06 -03/14/2024 for septic shock secondary to E. coli UTI with bacteremia, stage IV right ischial tuberosity decubitus ulcer. --Readmitted at [facility] on 03/21/[address] showed a sacral decubitus ulcer extending to the sacrum, right deep gluteal soft tissue tunneling and lower gluteal/upper thigh ulceration extending to the ischial tuberosity with evidence of chronic osteomyelitis. General surgery, infectious disease followed and recommended transfer to tertiary center. ---Was admitted at [facility] 03/24 to 03/31/2024. General surgery, infectious disease, [...] discussed above. Chronic pain on narcotics. Continue INDUSTRIAL ELECTRICIAN Tylenol. Continue INDUSTRIAL ELECTRICIAN gabapentin. Continue INDUSTRIAL ELECTRICIAN as needed oxycodone, minimize use as able [...] atelectasis, effusions, or pneumothorax. Moderate atherosclerotic disease. INDUSTRIAL ELECTRICIAN Lasix held on admission. Restarted on 05/12/2024 Continue INDUSTRIAL ELECTRICIAN Toprol, switch to immediate release 25 mg twice daily with hold parameters. ---- INDUSTRIAL ELECTRICIAN not on aspirin or statin. Defer further cardiac workup to outpatient. Telemetry monitoring. Intake output monitoring, daily weights. Hypokalemia. Potassium replacement ordered Potassium normal at 4.1 Obstructive sleep apnea Uses BiPAP as outpt. Has chronic CO2 retention. Resume BiPAP per home settings. Rheumatoid arthritis Continue on INDUSTRIAL ELECTRICIAN on prednisone 10 mg daily. Used to take methotrexate, but intolerant/side effects. Chronic Anemia likely secondary to chronic disease. Baseline hemoglobin 9-10 range. Hemoglobin at around previous baseline. Incidental renal stones. CT - No hydronephrosis. Nonobstructive right renal pelvic stones including 13 mm right UPJ calculus. Recommend follow-up with urology as outpatient if symptomatic. Diabetes mellitus with a hemoglobin A1c of 6.6. INDUSTRIAL ELECTRICIAN not on meds. BS were 93-200 Diet [...] minutes discharging this patient. Anna Fajardo MD [place] [address] [place] [address] , [address] [facility] [address] Physical Exam Vital Signs: Temp: 98.3 ??F [...] Patient to contact the CRS office at [phone] if not has an appointment already. Diet [...] C. difficile Antigen and Toxins A/B EIA [[id number]] Stool from Per Rectum Final result Component Value C Difficile Toxin B by PCR Negative A negative result does not exclude actual disease due to C. difficile and may be due to improper collection, handling and storage of the specimen or the number of organisms in the specimen is below the detection limit of the assay. 05/12/2024 1220 05/13/2024 1046 Urine Culture [[id number]] Urine, Cristobal Catheter Final result Component Value Culture No Growth 05/10/2024 1448 05/15/2024 1531 Blood Culture Peripheral Blood [[id number]] Peripheral Blood Final result Component Value Culture No Growth 05/10/2024 1446 05/10/2024 1608 Symptomatic Influenza A/B, RSV, & SARS-CoV2 PCR (COVID-19) Nasopharyngeal [[id number]] Swab from Nasopharyngeal Final result Component Value [...] ESR & CRP: Recent Labs Lab Test 05/10/24 144 CRPI 61.98* , Results for orders placed or performed during the hospital encounter of 05/10/24 CT Chest/Abdomen/Pelvis w Contrast Narrative EXAM: CT CHEST/ABDOMEN/PELVIS W CONTRAST LOCATION: [facility] DATE: 05/10/2024 INDICATION: Fever, paraplegia, abdominal pain [...] Cover with Mepilex 4x4. Follow up with photo specialist in 2-4 weeks. Ok to use [...] frequently. 9. OK to take stairs. Supplies: Silenseed New KAL 2-pc system (up to 20 pouch changes/month) 1. Barrier: New Image CeraPlus 70mm soft convex cut-to-fit with tape - #73510 (5/box = 2 box/month) 2a. Pouch: 70mm closed pouch, beige, with filter, 'quiet-wear' - #72042 (30/box = 2 box/month) and/or 2b. Pouch: 70mm drainable lock n roll, beige, with filter - #25767 (10/box = 1-2 box/month) 3. Ring: Alessia 2 CeraRing (if needed for leakage; as stool thickens you might not need the ring anymore) - #3105 (10/box = 1 box/month) As needed 4. 3M Cavilon no-sting skin barrier (optional if needed) - #9004 (50/box = 1 box as needed) 5. Stoma powder (if needed) - #7906 (1 bottle as needed) 6. Odor eliminator & lubricant (optional) - #36914 (8oz bottle) or #26347 (8ml packets, 50 in abox) (1 as [...] Clinic room is on 1st floor in [facility] - check in at [facility] in [facility] phone # [phone] (Mon - Fri) - call for any questions [...] capsule 05/25/2024 sennosides (SENOKOT) 8.6 MG tabletIndications:Dr ug-induced constipation Take 1-2 tablets by mouth 2 [...] with the mepilex, as pt has tape hfuf and breakdown. [facility] facility will assess and change dressing tonight, so it is secured with paper tape and a brief * Elizabeth Hector LSW - 05/26/2024 11:33 AM CDT Care Management Discharge Note Discharge Date: 05/26/2024 Discharge Disposition: Penitentiary Facility Discharge Services: Discharge DME: Discharge Transportation: Private pay costs discussed: Not applicable Does the patient's insurance plan have a 3 day qualifying hospital stay waiver? No PAS Confirmation Code: [id number] Patient/family educated on Medicare website which has current facility and service quality ratings:yes Education Provided on the Discharge Plan: Persons Notified of Discharge Plans: MERCHANT MARINER, Charge, patient, facility, family Patient/Family in Agreement with the Plan: yes Handoff Referral Completed: No Additional Information: Area Development Consultant received confirmation that [employer] insurance auth received. [facility] Faxed meds and PAS, let daughter and nurse know patient was discharging. Patient may need to leave her wheelchair and some belongings here and daughter will brick picker from [facility]. CHANTE Smiley * Izzy Marie RN - 05/26/2024 10:35 AM CDT Images from the original note were not included. [facility] Nurse Inpatient Assessment Consulted for: Colostomy, buttock wounds Summary: New colostomy 05-18-24 for improved wound hygiene. Stoma viable, output WNL. Supplies for discharge in room. Patient reports daughter, Elvi is primary patient care director who will perform ostomy changes. 05/26 pt [...] Surgery Date: 05/18/24 Surgeon: Dr. Peter Alfredo [facility]: [facility] Pouching system in place on assessment today: Alessia two piece soft convex Pouch barrier status: intact Pouch last changed/wear time: 05/18, 05/20, 05/24, 05/26 Reason for pouch change today: routine schedule and assessment Effectiveness of current pouching/ supply plan: Recommend continuing current plan Change made with ostomy management today: No Pouching system placed today: Alessia 2pc 70mm soft convex with ring and [...] Pain: tender Is patient still on a PROJECT LANDSCAPE ARCHITECT? No Ostomy education assessment: Participant of teaching [...] order supplies afterdischarge , Ordered samples from tire installer after gaining consent from patient/caregiver, Discussed how and when to make an outpatient WOC nurse appointment after discharge, Prepared for discharge home with home care, and Discuss signs/symptoms of when to seek medical attention Preparation for discharge still needed: reinforce teaching; family and pt need hands-on practice Pt support system on discharge: niece and daughter WOC recommend home care? Yes after TCU Wound [...] areas Positioning Equipment: as needed Fluidized positioner (#[id number] or #[id number] large) to help maintain side lying position. Chair positioning: Chair cushion (#[id number]) , Assist patient to reposition hourly, and [...] system: ostomy supplies pouches: Alessia 70 FECAL (632904) ostomy supplies barrier: Alessia 70mm SOFT CONVEX (196350) Accessories used: WO ostomy accessories: 2 Cera Barrier Ring ([id number]) Frequency of pouch changes: PRN leakage and [...] and Shear: 1-->problem Brandon Score: 12 Izzy Marie, RN CWOCN -Securely message with studdex ([facility] studdex [employer]) [facility] Office (messages checked periodically Mon-Fri 8a-4p) * Elizabeth Hector, TAP OUT OPERATOR - 05/26/2024 10:07 AM CDT Care Management Follow Up Length of Stay (days): 16 Expected Discharge Date: 05/26/2024 Concerns to be Addressed: Patient plan of care discussed at interdisciplinary rounds: Yes Anticipated Discharge Disposition: Penitentiary Facility Anticipated Discharge Services: Anticipated Discharge DME: Patient/family educated on Medicare website which has current facility and service quality ratings:yes Education Provided on the Discharge Plan: Patient/Family in Agreement with the Plan: yes Referrals Placed by CM/SW: Senior [facility] Line, Post Acute Facilities, Transportation Private pay costs discussed: Not applicable Additional Information: Area Development Consultant completed pas in anticipation of discharge. PAS-RR D: Per [facility] regulation, SW completed and submitted PAS-RR to [place] Board on Aging Direct Connect via the [facility] Line. PAS-RR confirmation # is : [id number] I: SW spoke with PT and they are aware a PAS-RR has been submitted. SW reviewed with Pt that they may be contacted for a follow up appointment within 10 days of hospital discharge if their SNF stay is < 30 days. Contact information for [facility] Line was also provided. A: Pt verbalized understanding. P: Further questions may be directed to [facility] at # , option #4 for PAS-RR staff. CHANTE Smiley * Mateo Henry RN - 05/26/2024 6:36 AM CDT Date & Time: 05/25/24, 2886-7157 Surgery/POD#: POD7/8 diverting colostomy Hx: Chronic osteomyelitis, [...] (05/26) Significant Information: [facility] insurance approval.Ride is currently scheduled for [id number]. Per patient, upper extremity mobility is below baseline and would appreciate PT assessment for rehab suitability as patient's baseline strength previously made her an assist of 1 for home ADLs. * Forrest Garcia DO - 05/25/2024 3:52 PM CDT [facility] Medicine Progress Note - Hospitalist Service [...] History of MRSA infection. -Recent admission at [facility] between 03/07-03/14/2024 for septic shock secondary to E. coli UTI with bacteremia, readmitted at [facility] on 03/21/2024 with severe sepsis and another admission at [facility] between 03/24-03/31 2024 -Presented here with abdominal [...] fibrillation not on anticoagulation. # Hypertension - INDUSTRIAL ELECTRICIAN Lasix held on admission. Restarted on 05/12/2024 - Continue INDUSTRIAL ELECTRICIAN Toprol, switch to immediate release 25 mg twice daily with hold parameters. - INDUSTRIAL ELECTRICIAN not on aspirin or statin. Defer further cardiac workup to outpatient. # Hypokalemia-resolved -Replace per protocol # Obstructive sleep apnea -Uses BiPAP as outpt. Has chronic CO2 retention. -BiPAP per home settings. # Rheumatoid arthritis -Continue on INDUSTRIAL ELECTRICIAN on prednisone 10 mg daily. # Chronic Anemia likely secondary to chronic disease. -Baseline hemoglobin 9-10 range. -Hemoglobin at around previous baseline. # Incidental renal stones. CT - No hydronephrosis. Nonobstructive right renal pelvic stones including 13 mm right UPJ calculus. - Recommend follow-up with urology as outpatient if symptomatic. # Diabetes mellitus with a hemoglobin A1c of 6.6. -INDUSTRIAL ELECTRICIAN not on meds. BS are 94 - [...] Ready Now Forrest Garcia DO Hospitalist Service [facility] Securely message with studdex (more info) Text page via [employer] Paging/Directory Interval History Patient seen and examined. [...] from the original note were not included. [facility] Nurse Inpatient Assessment Consulted for: Colostomy, buttock wounds Summary: New colostomy 05-18-24 for improved wound hygiene. Stoma viable, output WNL. Supplies for discharge in room. Pouch changed 05/24, no family present. Patient reports daughter, Elvi is primary patient care director who will perform ostomy changes POA wounds [...] Surgery Date: 05/18/24 Surgeon: Dr. Peter Alfredo [facility]: [facility] Pouching system in place on assessment today: Alessia two piece soft convex Pouch barrier status: intact Pouch last changed/wear time: 05/18, 05/20, 05/24 Reason for pouch change today: pouch not changed today Effectiveness of current pouching/ supply plan: Needs soft convexity at discharge Change made with ostomy management today: No Pouching system placed today: Radisson 2pc 57mm soft convex with ring and [...] Pain: tender Is patient still on a PROJECT LANDSCAPE ARCHITECT? No Ostomy education assessment: Participant of teaching [...] order supplies afterdischarge , Ordered samples from tire installer after gaining consent from patient/caregiver, Discussed how and when to make an outpatient [facility] nurse appointment after discharge, Prepared for discharge home with home care, and Discuss signs/symptoms of when to seek medical attention Preparation for discharge still needed: reinforce teaching; family and pt need hands-on practice Pt support system on discharge: niece and daughter [facility] recommend home care? Yes Wound location: buttock, [...] areas Positioning Equipment: as needed Fluidized positioner (#[id number] or #[id number]- large) to help maintain side lying position. Chair positioning: Chair cushion (#[id number]) , Assist patient to reposition hourly, and [...] pouching plan: Pouching system: ostomy supplies pouches: Radisson 70 FECAL (918991) ostomy supplies barrier: Radisson 70mm SOFT CONVEX (656597) Accessories used: WO ostomy accessories: 2 Cera Barrier Ring (141391) Frequency of pouch changes: PRN leakage and [...] Shear: 1-->problem Brandon Score: 13 Jessica Rudolph [facility]. Vocera- Contact [facility] Nurse (Zaynab) via Vocera Dept. Office Number: [phone] * Elizabeth eHctor LSW - 05/25/2024 1:13 PM CDT Care Management Follow Up Length of Stay (days): 15 Expected Discharge Date: 05/26/2024 Concerns to be Addressed: Patient plan of care discussed at interdisciplinary rounds: Yes Anticipated Discharge Disposition: Penitentiary Facility Anticipated Discharge Services: Anticipated Discharge DME: Patient/family educated on Medicare website which has current facility and service quality ratings: Education Provided on the Discharge Plan: Patient/Family in Agreement with the Plan: yes Referrals Placed by CM/SW: Senior Linkage Line, Post Acute Facilities, Transportation Private pay costs discussed: Not applicable Additional Information: [facility] updated that they have not received auth yet, typewriter repairer rescheduled transport to tomorrow between 0026 - 2622 updated patient CHANTE Smiley * Yarelis Hoskins RD - 05/25/2024 11:50 AM CDT CLINICAL NUTRITION [...] 59.6 kg (admit 05/10) Estimated Energy Needs: 6074-6968 kcals (25-30 Kcal/Kg) Justification: maintenance, wound healing [...] Yarelis Hoskins RD, LD Clinical Dietitian - [facility] * Elizabeth Hector LSW - 05/25/2024 11:39 [...] pay costs discussed: Not applicable Additional Information: Area Development Consultant called David cardona ineseliud and spoke to Mary They still have not heard back about insurance authorization. Patient could still admit today if they do get authorization from [employer] if not we will have to post pone until tomorrow. Area Development Consultant updated Elvi - patients daughter as she needs to brick picker some items from the room. ADD - typewriter repairer rescheduled transportation to between 3:30 - 4:30 in case we get insurance authorization CHANTE Smiley * Kallie Pollock OTR - 05/25/2024 10:21 AM CDT 05/25/24 0900 Appointment Info Signing Clinician's Name / Credentials (OT) Kallie Pollock, OTR/L Rehab Comments (OT) Initial OT Eval [...] WC. she will sit in the wheelchair rarherve.dustin lift for tx. Ax1 for rolling L<>R for kwabena cares and would cares. pt can typically hold herself in sidelying indp while daughter does her kwabena cares and wounds Bed Mobility Bed Mobility rolling left Rolling Left Ray (Bed Mobility) 2 person assist;moderate assist (50% patient effort) Assistive Device (Bed Mobility) draw sheet;bed rails Transfers Transfer Comments dep dustin lift Activities of Daily Living BADL Assessment/Intervention feeding (pt dep for all other ADLs) Eating/Self Feeding Ray Level (Feeding) set up Comment, (Feeding) seated [...] Evaluation Time OT Eval, Low Complexity Minutes (40169) 20 OT Goals Therapy Frequency (OT) 3 [...] Therapeutic Activity Therapeutic Activities Therapeutic Activity Minutes (46105) 8 Treatment Detail/Skilled Intervention extended time with [...] timed and untimed services) 28 * Leela Degroot APRN CASTABLES WORKER - 05/25/2024 7:18 AM CDT Images from the original note were not included. [facility] ACUTE PAIN SERVICE CONSULTATION [facility] Text Page Pain Via [facility] Leela Assessment and Plan Prerna Major [...] cut around decubitus area Subjective: Pain stable. 6/10 continued increase pain at colostomy site with [...] and concerns addressed to patient's satisfaction. NUBIA BowerC,PROFESSOR COMPUTER SCIENCE,CASTABLES WORKER,ACHPN Secure messaging with [facility] Paging/Directory [facility] Hours 8-4:00 Friday-Friday after 3:30 contact hospital service covering provider * Mateo Henry RN - 05/25/2024 6:23 AM CDT Date & Time: 05/24/24, 4533-5766 Surgery/POD#: POD6/7 diverting colostomy Hx: Chronic osteomyelitis, [...] Significant Information: [facility] PT/OT to see for insurance approval. Ride is currently scheduled for between [id number]. * Maribel Clayton RN - 05/24/2024 11:50 [...] DC Date: Plan to discharge tomorrow to [facility] TCU * Elizabeth Hector LSW - 05/24/2024 [...] pay costs discussed: Not applicable Additional Information: Area Development Consultant received message from [facility] that they can accept patient into their TCU. They willrun her insurance auth for acceptance. They asked typewriter repairer to schedule a ride for tomorrow. Area Development Consultant will update patient Area Development Consultant arranged tentative transport using Caviar stretcher, patient aware of costs, ride time is for between 1410 - 1450 [facility] noticed patient does not have Pt/OT notes on file and may need an assessment in order to get auth from insurance. Area Development Consultant sent provider a message asking for PT/OT to see CHANTE Smiley * Zane Leelarome Guillaume, AMIRAH CASTABLES WORKER - 05/24/2024 11:45 AM CDT Images from the original note were not included. [facility] ACUTE PAIN SERVICE [facility], [facility], [facility], [facility] PAIN Progress Note Assessment/Plan: Assessment/Plan: Prerna Major [...] planned procedure. Patient is familiar to this typewriter repairer please see note from 05/12/24 for details [...] every 3 hrs prn Pharm liaison consult colleen patch noted Butrans cost prohibitive to patient at $100.00 /month IV Pain medication: not indicated Non-medication interventions: Ice, Heat, Rest, PT, OT, Distraction (TV, Music, Reading), and abdominal binder with turning to left for drsg changes Constipation Prophylaxis: Scheduled and prn: Senna-docusate -Opioid prescriber Flo Lanier MD -[place] SHANK STAPLER pulled from system on no controlled substance note . Discussed by patrice Mars PharmD covering floor and verified script of Oxycodone at last discharge and othe script of Oxycodone consistently from [facility] This indicates discrepancy Discharge Recommendations - We [...] ACHPN, PGMT- Acute Care Pain Management Program [facility] Friday-Friday 8a-4p Page via [employer] or [employer] * Eilzabeth Hector LSW - 05/24/2024 11:27 AM CDT [...] pay costs discussed: Not applicable Additional Information: Area Development Consultant checked on pending referral for TCU with pa [facility]. They have multiple locations. Aetnainsurance is very limited The following are pending referrals [facility] ([facility]) Pending - Request Sent N/A [address] [facility] [address] -- Internal Comment last updated by Roel Holcomb MA 05/24/2024 8:05 AM 05/24 3946 sent email to admissions ~ap [facility] ([facility]) Pending - Request Sent N/A [address] [facility] [address] [phone] -- [facility]) Pending - Request Sent N/A [address] [facility] [phone] -- [facility] () Pending - Request Sent N/A [address] [facility] [address] -- Current Capacity last updated by Paul Tang RN on 05/13/2024 10:01 AM Admissions: Mary [phone] Monie [phone] - [facility] ([facility]) Pending - Request Sent N/A [address] [facility] [address] [phone] -- [facility] () Pending - Request Sent N/A [address] [facility] [address] [phone] -- Current Capacity last updated by Mercy Aguilar MA on 04/06/2024 9:55 AM Non smoking - Send full referral - *[facility] HESHAM: Avery Lopez ph. [phone] (note that referral is for Ali)* Katie Alexander ([facility]) Pending - Request Sent N/A [address] [facility] [address] -- CHANTE Smiley * Izzy Marie RN - 05/24/2024 10:57 AM CDT Images from the original note were not included. [facility] Nurse Inpatient Assessment Consulted for: Colostomy, [...] a day on discharge this is acceptable. [facility] planning to follow-up on wounds/plan on 05/25 [...] Surgery Date: 05/18/24 Surgeon: Dr. Peter Alfredo [facility]: [facility] Pouching system in place on assessment today: Radisson two piece Pouch barrier status: intact Pouch last changed/wear time: Reason for pouch change today: pouch not changed today Effectiveness of current pouching/ supply plan: Needs soft convexity at discharge Change made with ostomy management today: No Pouching system placed today: Radisson 2pc 57mm flat with ring and lock [...] Pain: tender Is patient still on a PROJECT LANDSCAPE ARCHITECT? No Ostomy education assessment: Participant of teaching [...] order supplies afterdischarge , Ordered samples from tire installer after gaining consent from patient/caregiver, Discussed how and when to make an outpatient [facility] nurse appointment after discharge, Prepared for discharge home with home care, and Discuss signs/symptoms of when to seek medical attention Preparation for discharge still needed: reinforce teaching; family and pt need hands-on practice Pt support system on discharge: niece and daughter [facility] recommend home care? Yes Buttock assessment copied [...] areas Positioning Equipment: as needed Fluidized positioner (#[id number] or #[id number]- large) to help maintain side lying position. Chair positioning: Chair cushion (#[id number]) , Assist patient to reposition hourly, and [...] pouching plan: Pouching system: ostomy supplies pouches: Radisson 70 FECAL ([id number]) ostomy supplies barrier: Radisson 70mm SOFT CONVEX ([id number]) Accessories used: WOC ostomy accessories: 2 Cera Barrier Ring ([id number]) Frequency of pouch changes: PRN leakage and [...] Izzy Marie RN CWOCN -Securely message with studdex ([facility] [employer]) Preferred -[facility] Office (messages checked periodically Mon-Fri 8a-4p) * hCris Son MD - 05/24/2024 9:41 AM CDT [facility] Medicine Progress Note - Hospitalist Service [...] History of MRSA infection. -Recent admission at [facility] between 03/07-03/14/2024 for septic shock secondary to E. coli UTI with bacteremia, readmitted at [facility] on 03/21/2024 with severe sepsis and another admission at [facility] between 03/24-03/31 2024 -Presented here with abdominal [...] fibrillation not on anticoagulation. # Hypertension - INDUSTRIAL ELECTRICIAN Lasix held on admission. Restarted on 05/12/2024 - Continue INDUSTRIAL ELECTRICIAN Toprol, switch to immediate release 25 mg twice daily with hold parameters. - INDUSTRIAL ELECTRICIAN not on aspirin or statin. Defer further cardiac workup to outpatient. # Hypokalemia-resolved -Replace per protocol # Obstructive sleep apnea -Uses BiPAP as outpt. Has chronic CO2 retention. -BiPAP per home settings. # Rheumatoid arthritis -Continue on INDUSTRIAL ELECTRICIAN on prednisone 10 mg daily. # Chronic Anemia likely secondary to chronic disease. -Baseline hemoglobin 9-10 range. -Hemoglobin at around previous baseline. # Incidental renal stones. CT - No hydronephrosis. Nonobstructive right renal pelvic stones including 13 mm right UPJ calculus. - Recommend follow-up with urology as outpatient if symptomatic. # Diabetes mellitus with a hemoglobin A1c of 6.6. -INDUSTRIAL ELECTRICIAN not on meds. BS are 94 - [...] for evaluation. CHRIS SON MD Hospitalist Service [facility] Securely message with studdex (more info) Text page via [facility] Paging/Directory Interval History -Afebrile and hemodynamically stable [...] Son MD - 05/23/2024 8:50 AM CDT [facility] Medicine Progress Note - Hospitalist Service [...] History of MRSA infection. -Recent admission at [facility] between 03/07-03/14/2024 for septic shock secondary to E. coli UTI with bacteremia, readmitted at [facility] on 03/21/2024 with severe sepsis and another admission at [facility] between 03/24-03/31 2024 -Presented here with abdominal [...] fibrillation not on anticoagulation. # Hypertension - INDUSTRIAL ELECTRICIAN Lasix held on admission. Restarted on 05/12/2024 - Continue INDUSTRIAL ELECTRICIAN Toprol, switch to immediate release 25 mg twice daily with hold parameters. - INDUSTRIAL ELECTRICIAN not on aspirin or statin. Defer further cardiac workup to outpatient. # Hypokalemia-resolved -Replace per protocol # Obstructive sleep apnea -Uses BiPAP as outpt. Has chronic CO2 retention. -BiPAP per home settings. # Rheumatoid arthritis -Continue on INDUSTRIAL ELECTRICIAN on prednisone 10 mg daily. # Chronic Anemia likely secondary to chronic disease. -Baseline hemoglobin 9-10 range. -Hemoglobin at around previous baseline. # Incidental renal stones. CT - No hydronephrosis. Nonobstructive right renal pelvic stones including 13 mm right UPJ calculus. Recommend follow-up with urology as outpatient if symptomatic. # Diabetes mellitus with a hemoglobin A1c of 6.6. -INDUSTRIAL ELECTRICIAN not on meds. BS are 94 - [...] TCU placement. CHRIS SON MD Hospitalist Service [facility] Securely message with studdex (more info) Text page via [employer] Paging/Directory Interval History -Afebrile and hemodynamically stable [...] Son MD - 05/22/2024 3:53 PM CDT [facility] Medicine Progress Note - Hospitalist Service [...] History of MRSA infection. -Recent admission at [facility] between 03/07-03/14/2024 for septic shock secondary to E. coli UTI with bacteremia, readmitted at [facility] on 03/21/2024 with severe sepsis and another admission at [facility] between 03/24-03/31 2024 -Presented here with abdominal [...] 01/14/2023] Atrial fibrillation not on anticoagulation. Hypertension INDUSTRIAL ELECTRICIAN Lasix held on admission. Restarted on 05/12/2024 Continue INDUSTRIAL ELECTRICIAN Toprol, switch to immediate release 25 mg twice daily with hold parameters. -INDUSTRIAL ELECTRICIAN not on aspirin or statin. Defer further cardiac workup to outpatient. Hypokalemia. -Replace per protocol Obstructive sleep apnea -Uses BiPAP as outpt. Has chronic CO2 retention. -BiPAP per home settings. Rheumatoid arthritis -Continue on INDUSTRIAL ELECTRICIAN on prednisone 10 mg daily. Chronic Anemia likely secondary to chronic disease. -Baseline hemoglobin 9-10 range. -Hemoglobin at around previous baseline. Incidental renal stones. CT - No hydronephrosis. Nonobstructive right renal pelvic stones including 13 mm right UPJ calculus. Recommend follow-up with urology as outpatient if symptomatic. Diabetes mellitus with a hemoglobin A1c of 6.6. -INDUSTRIAL ELECTRICIAN not on meds. BS are 94 - [...] TCU placement. CHRIS SON MD Hospitalist Service [facility] Securely message with studdex (more info) Text page via [facility] Paging/Directory Interval History -Afebrile and hemodynamically stable [...] from the original note were not included. [facility] Nurse Inpatient Assessment Consulted for: Colostomy, [...] Surgery Date: 05/18/24 Surgeon: Dr. Peter Alfredo [facility]: [facility] Pouching system in place on assessment today: Radisson two piece Pouch barrier status: intact Pouch [...] discussed 05/21 Is patient still on a PROJECT LANDSCAPE ARCHITECT? No Ostomy education assessment: Participant of teaching [...] order supplies afterdischarge , Ordered samples from tire installer after gaining consent from patient/caregiver, Discussed how and when to make an outpatient [facility] nurse appointment after discharge, Prepared for discharge home with home care, and Discuss signs/symptoms of when to seek medical attention Preparation for discharge still needed: reinforce teaching Pt support system on discharge: niece and daughter [facility] recommend home care? Yes Buttock assessment copied [...] areas Positioning Equipment: as needed Fluidized positioner (#[id number] or #[id number]- large) to help maintain side lying position. Chair positioning: Chair cushion (#[id number]) , Assist patient to reposition hourly, and [...] system: ostomy supplies pouches: Alessia 70 FECAL (390445) ostomy supplies barrier: Alessia 70mm SOFT CONVEX (792269) Accessories used: WOC ostomy accessories: 2 Cera Barrier Ring (597150) Frequency of pouch changes: PRN leakage and [...] plan of care with: Patient and Nurse [facility] nurse follow-up plan: weekly for wound follow up assessment, daily follow up for ostomy teaching after surgery Notify [facility] if wound(s) deteriorate. Nursing to notify the Provider(s) and re-consult the [facility] Nurse if new skin concern. DATA: Current [...] Johanny CWOCN 1st choice: Securely message with studdex ([facility] [employer]) (2nd option: [facility] Office , messages checked periodically Mon- Fri [...] pay costs discussed: Not applicable Additional Information: Area Development Consultant was told by provider that patient may need TCU. Patient has [employer], typewriter repairer met with patient at bedside to discuss choices and options for TCU, provided [employer] list near patients home. Patient reports having bad experiences in previous TCU stays. Patient agreed for typewriter repairer to send referrals to [facility] and [facility]. Referrals sent via [facility] Service Provider Request Status Selected Services Address Phone Fax Patient Preferred [facility] ([facility]) Pending - [facility] Sent N[facility] [id number] [facility] [phone] -- Current Capacity last updated by Dayanna Burciaga MA on 11/07/2023 2:12 PM IP Team always send full referral in [facility]. Thank you. [facility] ([facility]) Pending - Request Sent N/A [address] [facility] [phone] CHANTE Smiley * Stevie Liu MD - 05/21/2024 9:45 AM CDT [facility] Medicine Progress Note - [...] History of MRSA infection. -Recent admission at [facility] between 03/07-03/14/2024 for septic shock secondary to E. coli UTI with bacteremia, readmitted at [facility] on 03/21/2024 with severe sepsis and another admission at [facility] between 03/24-03/31 2024 -Presented here with abdominal [...] 01/14/2023] Atrial fibrillation not on anticoagulation. Hypertension INDUSTRIAL ELECTRICIAN Lasix held on admission. Restarted on 05/12/2024 Continue INDUSTRIAL ELECTRICIAN Toprol, switch to immediate release 25 mg twice daily with hold parameters. -INDUSTRIAL ELECTRICIAN not on aspirin or statin. Defer further cardiac workup to outpatient. Hypokalemia. -Replace per protocol Obstructive sleep apnea -Uses BiPAP as outpt. Has chronic CO2 retention. -BiPAP per home settings. Rheumatoid arthritis -Continue on INDUSTRIAL ELECTRICIAN on prednisone 10 mg daily. Chronic Anemia likely secondary to chronic disease. -Baseline hemoglobin 9-10 range. -Hemoglobin at around previous baseline. Incidental renal stones. CT - No hydronephrosis. Nonobstructive right renal pelvic stones including 13 mm right UPJ calculus. Recommend follow-up with urology as outpatient if symptomatic. Diabetes mellitus with a hemoglobin A1c of 6.6. -INDUSTRIAL ELECTRICIAN not on meds. BS are 94 - [...] Chart documentation was completed, in part, with [employer] voice-recognition software. Even though reviewed, some grammatical, spelling, and word errors may remain. Stevie Liu MD Hospitalist Service [facility] Text Page 7AM-6PM Securely message with the [employer] Console (learn more here) Text page via [employer] Paging/Directory Interval History Patient complains of significant [...] ringers infusion Intravenous Continuous AlfredoPeter cesar MD Stopped at 05/20/24 1551 Current Facility-Administered Medications Medication Dose Route Frequency Provider Last Rate Last Admin acetaminophen (TYLENOL) oral liquid 1,000 mg 1,000 mg Oral Q8H Ambar Joseph MD 975 mg at 05/21/24 0924 amoxicillin-clavulanate (AUGMENTIN) 875-125 MG per tablet 1 tablet 1 tablet Oral Q12H [facility] (06/01) Peter Alfredo MD 1 tablet at 05/21/24 0918 diclofenac (VOLTAREN) 1 % topical gel 4 g 4 g Topical TID Peter Alfredo MD 4 g at 05/21/24 0923 enoxaparin ANTICOAGULANT (LOVENOX) injection 40 mg 40 mg Subcutaneous Q24H Peter Alfredo MD 40 mg at 05/20/24 1448 furosemide (LASIX) tablet 40 mg 40 mg Oral Daily AlfredoPeter cesar MD 40 mg at 05/21/24 0916 gabapentin (NEURONTIN) capsule 400 mg 400 mg Oral TID AlfredoPeter cesar MD 400 mg at 05/21/2418 lactobacillus rhamnosus (GG) (CULTURELL) capsule 1 capsule 1 capsule Oral Daily AlfredoPeter cesar MD1 capsule at 05/21/2418 Lidocaine (LIDOCARE) 4 % Patch 3 patch 3 patch Transdermal Q24h AlfredoPeter cesar MD 3 patch at 05/21/24 0923 methocarbamol (ROBAXIN) tablet 500 mg 500 mg Oral 4x Daily Janak Robledo, WIL 500 mg at 05/21/24916 metoprolol tartrate (LOPRESSOR) tablet 25 mg 25 mg Oral BID AlfredoPeter cesar MD 25 mg at 05/21/24917 multivitamin w/minerals (THERA-VIT-M) tablet 1 tablet 1 tablet Oral Daily AlfredoPeter cesar MD 1 tablet at 05/21/24917 [Held by provider] naproxen (NAPROSYN) tablet 250 mg 250 mg Oral Daily with breakfast Anna Fajardo MD polyethylene glycol (MIRALAX) Packet 17 g 17 g Oral Daily AlfredoPeter cesar MD 17 g at 05/21/24916 predniSONE (DELTASONE) tablet 10 mg 10 mg Oral or NG Tube Daily Peter Alfredo MD 10 mg at 05/21/24 09 senna-docusate [...] Q8H AlfredoPeter cesar MD 3 mL at 245 sodium hypochlorite (DAKINS half-strength) external solution Irrigation BID Peter Alfredo MD Given at 05/21/24 09 vitamin C (ASCORBIC ACID) tablet 250 mg 250 mg Oral Daily Peter Alfredo MD 250 mg at 05/21/24 0918 zinc sulfate (ZINCATE) capsule 220 mg 220 mg Oral or NG Tube QPM Peter Alfredo MD 220 mg at 05/20/242125 * Peter Alfredo MD - 05/21/2024 9:34 [...] questions/paging, please contact the CRS office at [phone]. Janak Robledo PA-C Colorectal Physician [employer] [facility] [address] [place] [address] T: [phone] F: [phone] CRS Staff Seen and examined Agree with above. Stoma functioning. Wounds look good. Tolerating diet. Will follow peripherally. Please call with questions. I performed a history and physical examination of the patient and discussed their management with the physician cataloging assistant. I reviewed the physician assistants note and agree with the documented findings and plan of care. Peter Alfredo MD FACS FASCRS Colorectal Surgeon [facility] [address], [address] [place] [address] T: [phone] F: [phone] Pager: [phone] [email or web address] * Mateo Henry RN - 05/21/2024 5:43 AM CDT Date & Time: 05/20/24, 8331-6601 Surgery/POD#: POD2/3 diverting colostomy Hx: Chronic osteomyelitis, [...] frequently. 9. OK to take stairs. Supplies: Radisson New Image 2-pc system (up to 20 pouch changes/month) 1. Barrier: New Image CeraPlus 70mm soft convex cut-to-fit with tape - #[id number] (5/box = 2 box/month) 2a. Pouch: 70mm closed pouch, beige, with filter, 'quiet-wear' - #69440 (30/box = 2 box/month) and/or 2b. Pouch: 70mm drainable lock n roll, beige, with filter - #81064 (10/box = 1-2 box/month) 3. Ring: Alessia [...] 6. Odor eliminator & lubricant (optional) - #34936 (8oz bottle) or #80564 (8ml packets, 50 in abox) (1 as [...] Clinic room is on 1st floor in [facility] - check in at [place] Desk in [facility] Office phone # [phone] (Mon - Fri) - call for any questions or concerns * Izzy Marie RN - 05/20/2024 12:07 PM CDT Images from the original note were not included. [facility] Nurse Inpatient Assessment Consulted for: Colostomy, [...] Surgery Date: 05/18/24 Surgeon: Dr. Peter Alfredo [facility]: [facility] Pouching system in place on assessment today: Alessia one piece and clamp Pouch barrier status: intact Pouch last changed/wear time: 05/18 Reason for pouch change today: ostomy education, routine schedule, and initial post-op assessment Effectiveness of current pouching/ supply plan: Needs soft convexity at discharge Change made with ostomy management today: Yes Pouching system placed today: Radisson 2pc 57mm flat with ring and lock [...] with turning Is patient still on a PROJECT LANDSCAPE ARCHITECT? No Ostomy education assessment: Participant of teaching session today: patient and niece, who also recorded some of WOC education for pt's daughter Education completed today: [...] supplies after discharge , Ordered samples from tire installer after gaining consent from patient/caregiver, Discussed how and when to make an outpatient WOC nurse appointment after discharge, Prepared for discharge home with home care, and Discuss signs/symptoms of when to seek medical attention Preparation for discharge still needed: review of cares, review of supplies Pt support system on discharge: niece and daughter [facility] recommend home care? Yes Buttock assessment copied [...] areas Positioning Equipment: as needed Fluidized positioner (#[id number] or #[id number]- large) to help maintain side lying position. Chair positioning: Chair cushion (#[id number]) , Assist patient to reposition hourly, and [...] pouching plan: Pouching system: ostomy supplies pouches: Radisson 70 FECAL (948237) ostomy supplies barrier: Radisson 70mm SOFT CONVEX (669065) Accessories used: WO ostomy accessories: 2 Cera Barrier Ring (818524) Frequency of pouch changes: PRN leakage and [...] of care with: Patient, Family, and Nurse WO nurse follow-up plan: weekly [...] Izzy Marie RN CWOCN -Securely message with studdex ([facility] [employer]) Preferred -[facility] Office (messages checked periodically Mon-Fri 8a-4p) * Stevie Liu MD - 05/20/2024 11:08 AM CDT [facility] Medicine Progress Note - [...] History of MRSA infection. -Recent admission at [facility] between 03/07-03/14/2024 for septic shock secondary to E. coli UTI with bacteremia, readmitted at [facility] on 03/21/2024 with severe sepsis and another admission at [facility] between 03/24-03/31 2024 -Presented here with abdominal [...] OT evaluation Chronic pain on narcotics. Continue INDUSTRIAL ELECTRICIAN Tylenol. Continue INDUSTRIAL ELECTRICIAN gabapentin. Continue INDUSTRIAL ELECTRICIAN as needed oxycodone, minimize use as able [...] 01/14/2023] Atrial fibrillation not on anticoagulation. Hypertension INDUSTRIAL ELECTRICIAN Lasix held on admission. Restarted on 05/12/2024 Continue INDUSTRIAL ELECTRICIAN Toprol, switch to immediate release 25 mg twice daily with hold parameters. -INDUSTRIAL ELECTRICIAN not on aspirin or statin. Defer further cardiac workup to outpatient. Hypokalemia. -Replace per protocol Obstructive sleep apnea -Uses BiPAP as outpt. Has chronic CO2 retention. -BiPAP per home settings. Rheumatoid arthritis -Continue on INDUSTRIAL ELECTRICIAN on prednisone 10 mg daily. Chronic Anemia likely secondary to chronic disease. -Baseline hemoglobin 9-10 range. -Hemoglobin at around previous baseline. Incidental renal stones. CT - No hydronephrosis. Nonobstructive right renal pelvic stones including 13 mm right UPJ calculus. Recommend follow-up with urology as outpatient if symptomatic. Diabetes mellitus with a hemoglobin A1c of 6.6. INDUSTRIAL ELECTRICIAN not on meds. BS are 94 - [...] Chart documentation was completed, in part, with [employer]El[employer] voice-recognition software. Even though reviewed, some grammatical, spelling, and word errors may remain. Stevie Liu MD Hospitalist Service [facility] Text Page 7AM-6PM Securely message with the studdex Web Console (learn more here) Text page via [employer] Paging/Directory Interval History Endorses slight pain at [...] tablet 1 tablet 1 tablet Oral Q12H [facility] (06/01) Peter Alfredo MD 1 tablet at 05/20/24 0830 diclofenac (VOLTAREN) 1 % topical gel 4 g 4 g Topical TID AlfredoPeter cesar MD 4 g at 05/20/24 0851 enoxaparin [...] Q24h AlfredoPeter cesar MD 3 patch at 05/19/24 1454 methocarbamol (ROBAXIN) tablet 500 mg 500 mg Oral 4x Daily Janak Robledo PA-C 500 mg at 05/20/24 1037 metoprolol tartrate (LOPRESSOR) tablet 25 mg 25 mg Oral BID AlfredoPeter cesar MD 25 mg at 05/20/24 0830 multivitamin w/minerals (THERA-VIT-M) tablet 1 tablet 1 tablet Oral Daily Peter Alfredo MD 1 tablet at 05/20/24 0851 [Held by provider] naproxen (NAPROSYN) tablet 250 mg 250 mg Oral Daily with breakfast Anna Fajardo MD polyethylene glycol (MIRALAX) Packet 17 g 17 g Oral Daily Peter Alfredo MD 17 g at 05/20/24 0851 predniSONE [...] nurse reports anticipated discharge is tomorrow. Called [facility] ([phone]) to update on anticipated discharge tomorrow; they acknowledged and appreciate update on final plan tomorrow with discharge orders to be faxed to them.Can leave a voice mail message as checked frequently. Jamila Bowser, RN Inpatient Float Maintenance Of [employer] [facility] * Janak Robledo PA-C - 05/20/2024 9:17 [...] questions/paging, please contact the CRS office at [phone]. Janak Robledo PA-C Colorectal Physician [employer] [facility] [address] [address] T: [phone] F: [phone] * Mateo Henry RN - 05/20/2024 6:26 AM CDT Date & Time: 05/19/24, [id number] Surgery/POD#: POD1/2 diverting colostomy Hx: Chronic osteomyelitis, [...] from the original note were not included. [facility] WO Nurse Inpatient Assessment Consulted for: 05/16 [...] 4 pressure injury wounds Surgery Date: 05/18 Surgeon:[facility]: [place] Pouching system in place on assessment today: Alessia one piece and clamp Pouch barrier status: intact Pouch last changed/wear time: applied in OR Reason for pouch change today: pouch not changed today Effectiveness of current pouching/ supply plan: Waiting for peristomal edema to decrease Change made with ostomy management today: No Pouching system placed today: Radisson remains Supplies: discussed with patient Last photo: [...] Pain: denies Is patient still on a PROJECT LANDSCAPE ARCHITECT? No Ostomy education assessment: Participant of teaching [...] supplies after discharge , Ordered samples from tire installer after gaining consent from patient/caregiver, and Prepared [...] attention Pt support system on discharge: niece WOC recommend home care? Yes Buttock assessment copied [...] areas Positioning Equipment: as needed Fluidized positioner (#[id number] or #[id number]) to help maintain side lying position. Chair positioning: Chair cushion (#[id number]) , Assist patient to reposition hourly, and [...] when 1/3 to 1/2 full, ~ Notify WOC for ongoing ostomy pouch leakage, ~ Document stoma output volume, color, consistency EVERY shift ~ Supplies used ~ Pouch: Alessia 70 FECAL ([id number]) ~ Flange/Barrier/Wafer: Radisson 70mm FLAT ([id number]) ~ Accessories: 2 Adapt Barrier Ring ([id number]) Question Answer Comment Type of Ostomy Colostomy Location LUQ Pouch Change Frequency PRN Leakage Pouch changed by WOC Pouch emptied by Patient to empty with assist Straight Drainage No Orders: Reviewed and Updated RECOMMEND PRIMARY TEAM ORDER: None, at this time Education provided: plan of care, wound progress, and Off-loading pressure Discussed plan of care with: Patient and Nurse 05/19 WOC nurse follow-up plan: weekly for wound [...] Johanny CWOCN 1st choice: Securely message with studdex ([employer] [facility] studdex [employer]) (2nd option: [facility] Office , messages checked periodically Fri- Fri 8a-4p) * Norman Liu RD - [...] them as she's only been getting the togolese vanilla flavor and would like to rotate the chocolate flavor as well. She had no questions about her low fiber diet while at [facility] but was interested in receiving more low fiber info for when she discharges - Flowsheets show a fair appetite and 1-3 intakes/day of 75-100%. ASSESSED NUTRITION NEEDS: Dosing Weight 59.6 kg (admit 05/10) Estimated Energy Needs: 6027-8566 kcals (25-30 Kcal/Kg) Justification: maintenance, wound healing [...] Liu MD - 05/19/2024 10:01 AM CDT [facility] Medicine Progress Note - [...] History of MRSA infection. -Recent admission at [facility] between 03/07-03/14/2024 for septic shock secondary to E. coli UTI with bacteremia, readmitted at [facility] on 03/21/2024 with severe sepsis and another admission at [facility] between 03/24-03/31 2024 -Presented here with abdominal [...] OT evaluation Chronic pain on narcotics. Continue INDUSTRIAL ELECTRICIAN Tylenol. Continue INDUSTRIAL ELECTRICIAN gabapentin. Continue INDUSTRIAL ELECTRICIAN as needed oxycodone, minimize use as able [...] 01/14/2023] Atrial fibrillation not on anticoagulation. Hypertension INDUSTRIAL ELECTRICIAN Lasix held on admission. Restarted on 05/12/2024 Continue INDUSTRIAL ELECTRICIAN Toprol, switch to immediate release 25 mg twice daily with hold parameters. -INDUSTRIAL ELECTRICIAN not on aspirin or statin. Defer further cardiac workup to outpatient. Hypokalemia. -Replace per protocol Obstructive sleep apnea -Uses BiPAP as outpt. Has chronic CO2 retention. -BiPAP per home settings. Rheumatoid arthritis -Continue on INDUSTRIAL ELECTRICIAN on prednisone 10 mg daily. Chronic Anemia likely secondary to chronic disease. -Baseline hemoglobin 9-10 range. -Hemoglobin at around previous baseline. Incidental renal stones. CT - No hydronephrosis. Nonobstructive right renal pelvic stones including 13 mm right UPJ calculus. Recommend follow-up with urology as outpatient if symptomatic. Diabetes mellitus with a hemoglobin A1c of 6.6. INDUSTRIAL ELECTRICIAN not on meds. BS are 94 - [...] Chart documentation was completed, in part, with [employer] voice-recognition software. Even though reviewed, some grammatical, spelling, and word errors may remain. Stevie Liu MD Hospitalist Service [facility] Text Page 7AM-6PM Securely message with the [employer] Console (learn more here) Text page via [employer] Paging/Directory Interval History Patient underwent diverting colostomy [...] tablet 1 tablet 1 tablet Oral Q12H [facility] (06/01) Peter Alfredo MD 1 tablet at 05/19/24 0826 diclofenac (VOLTAREN) 1 % topical gel 4 g 4 g Topical TID AlfredoPeter cesar MD 4 g at 05/18/24 0923 doxycycline hyclate (VIBRAMYCIN) capsule 100 mg 100 mg Oral Q12H [facility] (06/01) Peter Alfredo MD 100 mg at 05/19/24 0826 enoxaparin ANTICOAGULANT (LOVENOX) injection 40 mg 40 mg Subcutaneous Q24H Peter Alfredo MD furosemide (LASIX) tablet 40 mg 40 mg Oral Daily AlfredoPeter cesar MD 40 mg at 05/19/24 0826 gabapentin (NEURONTIN) capsule 400 mg 400 mg Oral TID Alfredo, Peter C, MD 400 mg at 05/19/24 0825 [Held by provider] heparin ANTICOAGULANT injection 5,000 Units 5,000 Units Subcutaneous Q8H Ambar Joseph MD 5,000 Units at 05/17/24 220 lactobacillus rhamnosus (GG) (CULTURELL) capsule 1 capsule 1 capsule Oral Daily Peter Alfredo MD1 capsule at 05/19/24 0825 Lidocaine (LIDOCARE) 4 % Patch 3 patch 3 patch Transdermal Q24h AlfredoPeter cesar MD 3 patch at 05/17/24 223 metoprolol tartrate (LOPRESSOR) tablet 25 mg 25 mg Oral BID AlfredoPeter cesar MD 25 mg at 05/19/24 0826 multivitamin w/minerals (THERA-VIT-M) tablet 1 tablet 1 tablet Oral Daily Peter Alfredo MD 1 tablet at 05/19/24 08 [Held by provider] naproxen (NAPROSYN) tablet 250 mg 250 mg Oral Daily with breakfast Anna Fajardo MD polyethylene glycol (MIRALAX) Packet 17 g 17 g Oral Daily AlfredoPeter cesar MD 17 g at 05/19/24 0826 potassium chloride (KLOR-CON) Packet 40 mEq 40 mEq Oral Once AlfredoPeter cesar MD predniSONE (DELTASONE) tablet 10 mg 10 mg Oral or NG Tube Daily Peter Alfredo MD 10 mg at 05/19/24 0826 senna-docusate (SENOKOT-S/PERICOLACE) 8.6-50 MG per tablet 2 tablet 2 tablet Oral or NG Tube BID Peter Alfredo MD 2 tablet at 05/19/24 0825 sodium chloride (PF) 0.9% PF flush 10 mL 10 mL Intracatheter Q8H Peter Alfredo MD sodium chloride (PF) 0.9% PF flush 3 mL 3 mL Intracatheter Q8H Peter Alfredo MD 3 mL at 126 sodium chloride (PF) 0.9% PF flush 3 mL 3 mL Intracatheter Q8H Peter Alfredo MD 3 mL at 127 sodium hypochlorite (DAKINS half-strength) external solution Irrigation BID Peter Alfredo MD Given at 05/18/24 0933 vitamin C (ASCORBIC ACID) tablet 250 mg 250 mg Oral Daily Peter Alfredo MD 250 mg at 05/19/24 0826 zinc sulfate (ZINCATE) capsule 220 mg 220 mg Oral or NG Tube QPM Peter Alfredo MD 220 mg at 05/18/24 2358 * Peter Alfredo MD - 05/19/2024 7:23 [...] questions/paging, please contact the CRS office at [phone]. Sanchez Sparks MD, MS Fellow, Colon & Rectal Surgery [facility] 05/19/2024 7:23 AM CRS Staff Agree with above Peter Alfredo MD FACS FASCRS Colorectal Surgeon [facility] [address], [address] [place] [address] T: [phone] F: [phone] Pager: [phone] [email or web address] * Peter Alfredo MD - 05/18/2024 [...] Colorectal Surgeon [facility] [address], [address] [place] [address] T: [phone] F: [phone] Pager: [phone] [email or web address] * Johanny Harrison RN - 05/18/2024 3:03 PM CDT Images from the original note were not included. [facility] Nurse Inpatient Assessment Consulted for: 05/16 [...] areas Positioning Equipment: as needed Fluidized positioner (#[id number] or #[id number]) to help maintain side lying position. Chair positioning: Chair cushion (#[id number]) , Assist patient to reposition hourly, and [...] to notify the Provider(s) and re-consult the [facility] Nurse if new skin concern. DATA: Current [...] Johanny JUSTICEOCTaj 1st choice: Securely message with studdex ([facility]) (2nd option: [facility] Office , messages checked periodically Mon- Fri [...] Fajardo MD - 05/18/2024 1:42 PM CDT [facility] Medicine Progress Note - Hospitalist Service [...] for today, 05/18/24 . recent hospitalizations: --Admitted [facility] on 03/06 -03/14/2024 for septic shock secondary to E. coli UTI with bacteremia, stage IV right ischial tuberosity decubitus ulcer. --Readmitted at [facility] on 03/21/[address] showed a sacral decubitus ulcer extending to the sacrum, right deep gluteal soft tissue tunneling and lower gluteal/upper thigh ulceration extending to the ischial tuberosity with evidence of chronic osteomyelitis. General surgery, infectious disease followed and recommended transfer to tertiary center. ---Was admitted at [facility] 03/24 to 03/31/2024. General surgery, infectious disease, [...] OT evaluation Chronic pain on narcotics. Continue INDUSTRIAL ELECTRICIAN Tylenol. Continue INDUSTRIAL ELECTRICIAN gabapentin. Continue INDUSTRIAL ELECTRICIAN as needed oxycodone, minimize use as able [...] 01/14/2023] Atrial fibrillation not on anticoagulation. Hypertension INDUSTRIAL ELECTRICIAN Lasix held on admission. Restarted on 05/12/2024 Continue INDUSTRIAL ELECTRICIAN Toprol, switch to immediate release 25 mg twice daily with hold parameters. ---- INDUSTRIAL ELECTRICIAN not on aspirin or statin. Defer further cardiac workup to outpatient. Telemetry monitoring. Intake output monitoring, daily weights. Hypokalemia. Potassium replacement ordered Potassium normal at 4.1 Obstructive sleep apnea Uses BiPAP as outpt. Has chronic CO2 retention. Resume BiPAP per home settings. Rheumatoid arthritis Continue on INDUSTRIAL ELECTRICIAN on prednisone 10 mg daily. Chronic Anemia likely secondary to chronic disease. Baseline hemoglobin 9-10 range. Hemoglobin at around previous baseline. Incidental renal stones. CT - No hydronephrosis. Nonobstructive right renal pelvic stones including 13 mm right UPJ calculus. Recommend follow-up with urology as outpatient if symptomatic. Diabetes mellitus with a hemoglobin A1c of 6.6. INDUSTRIAL ELECTRICIAN not on meds. BS are 94 - [...] ready . Anna Fajardo MD Hospitalist Service [facility] Securely message with studdex ([employer] info) Text page via [employer] Paging/Directory Interval History Has been doing Incentive spirometry in anticipation of surgery Physical Exam Vital Signs: Temp: 98.2 ??F (36.8 ??C) Temp src: Oral BP: 125/48 Pulse: 82 Resp: 16 SpO2: 95 % O2 Device: None (Room air) Weight: 147 lbs 11.33 oz Constitutional:Awake, alert, cooperative, no apparent distress sitting up in bed, eating togolese toast Respiratory: Clear to auscultation bilaterally, no [...] teaching - Pre-op labs ordered - Hold [facility] - Patient would like to change her code status to DNR/ok for intubation (only if absolutely necessary) Discussed with Dr. Alfredo. For questions/paging, please contact the CRS office at [phone]. Janak Robledo PA-C Colorectal Physician [employer] [facility] [address] [address] T: [phone] F: [phone] * Rosmery Roque RN - 05/17/2024 8:45 [...] questions/paging, please contact the CRS office at [phone]. Janak Robledo PA-C Colorectal Physician [employer] [facility] [address] [place] [address] [place] [address] T: [phone] F: [phone] CRS Staff Seen and examined Agree with above. Will update anesthesia on difficult extubation Orders written for bowel prep. Can have clear liquids in AM. No IV access. Will have vascular access team place picc I performed a history and physical examination of the patient and discussed their management with the physician cataloging assistant. I reviewed the physician assistants note and agree with the documented findings and plan of care. Peter Alfredo MD FACS FASCRS Colorectal Surgeon [facility] [address], [address] [place] [address] T: [phone] F: [phone] Pager: [phone] [email or web address] * Anna Fajardo MD - 05/17/2024 9:06 AM CDT [facility] Medicine Progress Note - Hospitalist Service Date [...] reconsider the recommendation for diverting colostomy. --Admitted [facility] on 03/06 -03/14/2024 for septic shock secondary to E. coli UTI with bacteremia, stage IV right ischial tuberosity decubitus ulcer. --Readmitted at [facility] on 03/21/[address] showed a sacral decubitus ulcer extending to the sacrum, right deep gluteal soft tissue tunneling and lower gluteal/upper thigh ulceration extending to the ischial tuberosity with evidence of chronic osteomyelitis. General surgery, infectious disease followed and recommended transfer to tertiary center. ---Was admitted at [facility] 03/24 to 03/31/2024. General surgery, infectious disease, [...] difficult extubation during a hospitalization for sepsis ([facility], a couple years ago, unable to find [...] OT evaluation Chronic pain on narcotics. Continue INDUSTRIAL ELECTRICIAN Tylenol. Continue INDUSTRIAL ELECTRICIAN gabapentin. Continue INDUSTRIAL ELECTRICIAN as needed oxycodone, minimize use as able [...] atelectasis, effusions, or pneumothorax. Moderate atherosclerotic disease. INDUSTRIAL ELECTRICIAN Lasix held on admission. Restarted on 05/12/2024 Continue INDUSTRIAL ELECTRICIAN Toprol, switch to immediate release 25 mg twice daily with hold parameters. ---- INDUSTRIAL ELECTRICIAN not on aspirin or statin. Defer further cardiac workup to outpatient. Telemetry monitoring. Intake output monitoring, daily weights. Hypokalemia. Potassium replacement ordered Potassium normal at 4.1 Obstructive sleep apnea Uses BiPAP as outpt. Has chronic CO2 retention. Resume BiPAP per home settings. Rheumatoid arthritis Continue on INDUSTRIAL ELECTRICIAN on prednisone 10 mg daily. Chronic Anemia likely secondary to chronic disease. Baseline hemoglobin 9-10 range. Hemoglobin at around previous baseline. Incidental renal stones. CT - No hydronephrosis. Nonobstructive right renal pelvic stones including 13 mm right UPJ calculus. Recommend follow-up with urology as outpatient if symptomatic. Diabetes mellitus with a hemoglobin A1c of 6.6. INDUSTRIAL ELECTRICIAN not on meds. BS are 94 - [...] 2-4 Days Anna Fajardo MD Hospitalist Service [facility] Securely message with studdex (more info) Text page via [employer] Paging/Directory Interval History No fevers. Good appetite. Doing bedside spirometry exercises [id number] independently Physical Exam Vital Signs: Temp: 98 ??F (36.7 ??C) Temp src: Oral BP: 124/49 Pulse: 90 Resp: 16 SpO2: 98 % O2 Device: None (Room air) Weight: 152 lbs 15.99 oz Constitutional:Awake, alert, cooperative, no apparent distress sitting up in bed, eating togolese toast Respiratory: Clear to auscultation bilaterally, no [...] Haile PA-C - 05/15/2024 3:34 PM CDT [facility] General Surgery Daily Progress Note Assessment and [...] page on-call surgeon after 4pm Office number: [phone] 35 minutes spent on date of the encounter doing patient visit, chart review, and documentation. Associated attestation - Ras Hyde MD - 05/16/2024 6:28 AM CDT Physician Attestation I saw and evaluated Prerna Major as part of a shared [employer]/PA visit. I personally reviewed the vital signs, [...] I saw the patient): 05/15/24 * Franca Perez, MEME - 05/15/2024 2:40 PM CDT Notification Notified Person: MD Notified Person Name: Anna Fajardo Notification Date/Time: 132805/15/2024 Notification Interaction: studdex Purpose of Notification: Stool in pt wound. [...] Fajardo MD - 05/15/2024 2:13 PM CDT [facility] Medicine Progress Note - Hospitalist Service [...] reconsider the recommendation for diverting colostomy. --Admitted [facility] on 03/06 -03/14/2024 for septic shock secondary to E. coli UTI with bacteremia, stage IV right ischial tuberosity decubitus ulcer. --Readmitted at [facility] on 03/21/[address] showed a sacral decubitus ulcer extending to the sacrum, right deep gluteal soft tissue tunneling and lower gluteal/upper thigh ulceration extending to the ischial tuberosity with evidence of chronic osteomyelitis. General surgery, infectious disease followed and recommended transfer to tertiary center. ---Was admitted at [facility] 03/24 to 03/31/2024. General surgery, infectious disease, [...] OT evaluation Chronic pain on narcotics. Continue INDUSTRIAL ELECTRICIAN Tylenol. Continue INDUSTRIAL ELECTRICIAN gabapentin. Continue INDUSTRIAL ELECTRICIAN as needed oxycodone, minimize use as able [...] atelectasis, effusions, or pneumothorax. Moderate atherosclerotic disease. INDUSTRIAL ELECTRICIAN Lasix held on admission. Restarted on 05/12/2024 Continue INDUSTRIAL ELECTRICIAN Toprol, switch to immediate release 25 mg twice daily with hold parameters. ---- INDUSTRIAL ELECTRICIAN not on aspirin or statin. Defer further cardiac workup to outpatient. Telemetry monitoring. Intake output monitoring, daily weights. Hypokalemia. Potassium replacement ordered Potassium normal at 4.1 Obstructive sleep apnea Uses BiPAP as outpt. Has chronic CO2 retention. Resume BiPAP per home settings. Rheumatoid arthritis Continue on INDUSTRIAL ELECTRICIAN on prednisone 10 mg daily. Chronic Anemia likely secondary to chronic disease. Baseline hemoglobin 9-10 range. Hemoglobin at around previous baseline. Incidental renal stones. CT - No hydronephrosis. Nonobstructive right renal pelvic stones including 13 mm right UPJ calculus. Recommend follow-up with urology as outpatient if symptomatic. Diabetes mellitus with a hemoglobin A1c of 6.6. INDUSTRIAL ELECTRICIAN not on meds. Monitor blood sugars , [...] surgical re-consult Anna Fajardo MD Hospitalist Service [facility] Securely message with studdex (more info) Text page via [employer] Paging/Directory Interval History Was going to d/c [...] Coates RN - 05/14/2024 6:43 PM CDT [id number] Orientation: AOx4 Aggression Stop Light: green Activity: [...] Fajardo MD - 05/14/2024 3:58 PM CDT [facility] Medicine Progress Note - Hospitalist Service Date of Admission: 05/10/2024 Assessment & Plan Prerna Major is a 78 year old female with medical history of history of transverse myelitis, paraplegia, neurogenic bladder with chronic indwelling Cristobal catheter, decubitus ulcers with chronic osteomyelitis, RA on chronic prednisone therapy, HUI, HFpEF, atrial fibrillation, hypertension, gastric ulcer presented to the ED with weakness. --Admitted [facility] on 03/06 -03/14/2024 for septic shock secondary to E. coli UTI with bacteremia, stage IV right ischial tuberosity decubitus ulcer. --Readmitted at [facility] on 03/21/[address] showed a sacral decubitus ulcer extending to the sacrum, right deep gluteal soft tissue tunneling and lower gluteal/upper thigh ulceration extending to the ischial tuberosity with evidence of chronic osteomyelitis. General surgery, infectious disease followed and recommended transfer to tertiary center. ---Was admitted at [facility] 03/24 to 03/31/2024. General surgery, infectious disease, [...] OT evaluation Chronic pain on narcotics. Continue INDUSTRIAL ELECTRICIAN Tylenol. Continue INDUSTRIAL ELECTRICIAN gabapentin. Continue INDUSTRIAL ELECTRICIAN as needed oxycodone, minimize use as able [...] atelectasis, effusions, or pneumothorax. Moderate atherosclerotic disease. INDUSTRIAL ELECTRICIAN Lasix held on admission. Restarted on 05/12/2024 Continue INDUSTRIAL ELECTRICIAN Toprol, switch to immediate release 25 mg twice daily with hold parameters. ---- INDUSTRIAL ELECTRICIAN not on aspirin or statin. Defer further cardiac workup to outpatient. Telemetry monitoring. Intake output monitoring, daily weights. Hypokalemia. Potassium replacement ordered Potassium normal at 4.1 Obstructive sleep apnea Uses BiPAP as outpt. Has chronic CO2 retention. Resume BiPAP per home settings. Rheumatoid arthritis Continue on INDUSTRIAL ELECTRICIAN on prednisone 10 mg daily. Chronic Anemia likely secondary to chronic disease. Baseline hemoglobin 9-10 range. Hemoglobin at around previous baseline. Incidental renal stones. CT - No hydronephrosis. Nonobstructive right renal pelvic stones including 13 mm right UPJ calculus. Recommend follow-up with urology as outpatient if symptomatic. Diabetes mellitus with a hemoglobin A1c of 6.6. INDUSTRIAL ELECTRICIAN not on meds. Monitor blood sugars , [...] pain control Anna Fajardo MD Hospitalist Service [facility] Securely message with studdex (more info) Text page via [employer] Paging/Directory Interval History Pain control improving. Complains [...] (from the past 24 hour(s)). * Julissa Gandhi, JONNATHAN, LD - 05/14/2024 8:38 AM CDT CLINICAL [...] 59.6 kg (admit 05/10) Estimated Energy Needs: 7924-2871 kcals (25-30 Kcal/Kg) Justification: maintenance, wound healing Estimated Protein Needs: 78-89 grams protein (1.3-1.5 g pro/Kg) Justification: wound healing Estimated Fluid Needs: 5302-5383 mL (1 mL/Kcal) Justification: maintenance NEW FINDINGS: 05/11: WOCN Consulted for: Wound acute on chronic osteomyelitis Summary: patient with POA wounds to buttock x3, Stage 4 BM x4 past 24 hrs (Dulcoax supp given 05/12, miralax/senokot held) 05/10: Culturell started Wt is up 24# from admit (??) - wt appears to fluctuate per records 05/14/24 0625 70.6 kg (155 lb 10.3 oz) Bed [...] 4:53 PM CDT Patient's daughter discussed with [facility] nurse and answered question. Patient would like to avoid any loop colostomy at this time. Agree with current wound management care. No surgical intervention needed. Will sign off. Please free free to contact again with any further questions or concerns. Yaritza Hurtado MD [facility] Trauma/Emergency/Critical Care Surgery * Leela Degroot, AMIRAH CASTABLES WORKER - 05/13/2024 3:46 PM CDT Images from the original note were not included. [facility] ACUTE PAIN SERVICE [facility] Daily PAIN Progress Note Securely message with the JeNaCell Console (learn more here) (When I saw [...] w/dressing changes, but better with topicals Pain 04/21 Multiple BM's <principal problem not specified> Patient [...] 650 mg Oral Q6H Leela Degroot APRN CASTABLES WORKER 650 mg at 05/13/24 0952 amoxicillin-clavulanate (AUGMENTIN) 875-125 MG per tablet 1 tablet 1 tablet Oral Q12H [facility] (06/01) Adeline Varela MD diclofenac (VOLTAREN) 1 % topical gel 4 g 4 g Topical TID Leela Degroot APRN CASTABLES WORKER 4 g at 05/13/24 1005 doxycycline hyclate (VIBRAMYCIN) capsule 100 mg 100 mg Oral Q12H [facility] (06/01) Adeline Varela MD furosemide (LASIX) tablet 40 mg 40 mg Oral Daily Noemí Bhat MD 40 mg at 05/13/24 0953 gabapentin (NEURONTIN) capsule 400 mg 400 mg Oral TID Leela Degroot APRN CASTABLES WORKER 400 mg at 05/13/24 0953 heparin ANTICOAGULANT injection 5,000 Units 5,000 Units Subcutaneous Q8H Ambar Joseph MD 5,000 Units at 05/13/24 1405 lactobacillus rhamnosus (GG) (CULTURELL) capsule 1 capsule 1 capsule Oral Daily Ambar Joseph MD 1 capsule at 05/13/24 0953 Lidocaine (LIDOCARE) 4 % Patch 3 patch 3 patch Transdermal Q24h Leela Degroot APRN CASTABLES WORKER 3 patch at 05/12/24 2212 metoprolol tartrate (LOPRESSOR) tablet 25 mg 25 mg Oral BID Ambar Joseph MD 25 mg at 954 multivitamin w/minerals (THERA-VIT-M) tablet 1 tablet 1 tablet Oral Daily Noemí Bhat MD 1 tablet at 05/13/24 0951 naproxen (NAPROSYN) tablet 250 mg 250 mg Oral TID w/meals Leela Degroot APRN CASTABLES WORKER 250 mg at 05/13/24 1536 polyethylene glycol [...] with patient ? Yes Leela Degroot APRN CASTABLES WORKER, PGMT-BC, ACHPN [facility] Coverage Friday-Friday 8:00-4:30 No weekend coverage contact warehouse technician Securely message with the JeNaCell Console (learn more here) * Jenn Junior RN - 05/13/2024 2:59 PM CDT VAT consult placed for IV placement. Patient declined IV at this time. RN caring for patient was updated. * Adeline Varela MD - 05/13/2024 1:44 PM CDT Images from the original note were not included. [facility] Infectious Disease Progress Note Date of Service [...] bacteremia with septic shock requiring hospitalization at [facility]/2024 -Chronic medical conditions -HUI, HFpEF, atrial fibrillation, [...] 650 mg Oral Q6H Leela Degroot APRN CASTABLES WORKER 650 mg at 05/13/24 0952 cefTRIAXone (ROCEPHIN) [...] 4 g Topical TID Leela Degroot APRN CASTABLES WORKER 4 g at 05/13/24 1005 furosemide (LASIX) tablet 40 mg 40 mg Oral Daily Noemí Bhat MD 40 mg at 05/13/24 0953 gabapentin (NEURONTIN) capsule 400 mg 400 mg Oral TID Leela Degroot APRN CASTABLES WORKER 400 mg at 05/13/24 0953 heparin ANTICOAGULANT injection 5,000 Units 5,000 Units Subcutaneous Q8H Ambar Joseph MD 5,000 Units at 05/13/24 0633 lactobacillus rhamnosus (GG) (CULTURELL) capsule 1 capsule 1 capsule Oral Daily Ambar Joseph MD 1 capsule at 05/13/24 0953 Lidocaine (LIDOCARE) 4 % Patch 3 patch 3 patch Transdermal Q24h Leela Degroot APRN CASTABLES WORKER 3 patch at 05/12/24 2212 metoprolol tartrate [...] mg Oral TID w/meals Leela Degroot APRN CASTABLES WORKER 250 mg at 05/13/24 0954 polyethylene glycol [...] Islas MD - 05/13/2024 1:03 PM CDT [facility] Hospitalist Progress Note Assessment & Plan Prerna Major is a 78 year old female with medical history of history of transverse myelitis, paraplegia, neurogenic bladder with chronic indwelling Cristobal catheter, decubitus ulcers with chronic osteomyelitis, RA on chronic prednisone therapy, HUI, HFpEF, atrial fibrillation, hypertension, gastric ulcer presented to the ED with weakness. --Admitted [facility] on 03/06 -03/14/2024 for septic shock secondary to E. coli UTI with bacteremia, stage IV right ischial tuberosity decubitus ulcer. --Readmitted at [facility] on 03/21/[address] showed a sacral decubitus ulcer extending to the sacrum, right deep gluteal soft tissue tunneling and lower gluteal/upper thigh ulceration extending to the ischial tuberosity with evidence of chronic osteomyelitis. General surgery, infectious disease followed and recommended transfer to tertiary center. ---Was admitted at [facility] 03/24 to 03/31/2024. General surgery, infectious disease, [...] --Address medical issues as discussed above. Continue INDUSTRIAL ELECTRICIAN Tylenol. Continue INDUSTRIAL ELECTRICIAN gabapentin. Continue INDUSTRIAL ELECTRICIAN as needed oxycodone, minimize use as able [...] atelectasis, effusions, or pneumothorax. Moderate atherosclerotic disease. INDUSTRIAL ELECTRICIAN Lasix held on admission. Restarted on 05/12/2024 Continue INDUSTRIAL ELECTRICIAN Toprol, switch to immediate release 25 mg twice daily with hold parameters. ---- INDUSTRIAL ELECTRICIAN not on aspirin or statin. Defer further cardiac workup to outpatient. Telemetry monitoring. Intake output monitoring, daily weights. Hypokalemia. Potassium replacement ordered , continue IV fluids normal saline with KCl. Potassium normal at 4.1 Obstructive sleep apnea Uses BiPAP as outpt. Has chronic CO2 retention. Resume BiPAP per home settings. Rheumatoid arthritis Continue on INDUSTRIAL ELECTRICIAN on prednisone 10 mg daily. Chronic Anemia [...] if elevated will consider sliding scale insulin. INDUSTRIAL ELECTRICIAN not on meds. Age-appropriate health maintenance as [...] 650 mg 650 mg Oral Q6H Leela Degroot, AMIRAH CASTABLES WORKER 650 mg at 05/13/24 0952 cefTRIAXone (ROCEPHIN) [...] 4 g Topical TID Leela Degroot APRN CASTABLES WORKER 4 g at 05/13/24 1005 furosemide (LASIX) tablet 40 mg 40 mg Oral Daily Noemí Bhat MD 40 mg at 05/13/24 0953 gabapentin (NEURONTIN) capsule 400 mg 400 mg Oral TID Leela Degroot APRN CASTABLES WORKER 400 mg at 05/13/24 0953 heparin ANTICOAGULANT injection 5,000 Units 5,000 Units Subcutaneous Q8H Ambar Joseph MD 5,000 Units at 05/13/24 0633 lactobacillus rhamnosus (GG) (CULTURELL) capsule 1 capsule 1 capsule Oral Daily Ambar Joseph MD 1 capsule at 05/13/24 0953 Lidocaine (LIDOCARE) 4 % Patch 3 patch 3 patch Transdermal Q24h Leela Degroot APRN CASTABLES WORKER 3 patch at 05/12/24 2212 metoprolol tartrate [...] mg Oral TID w/meals Leela Degroot APRN CASTABLES WORKER 250 mg at 05/13/24 0954 polyethylene glycol [...] 05/12/24 2130 Data Recent Labs Lab 05/13/24 0816 05/11/24 1055 05/10/24 1444 WBC 10.0 13.4* 15.6* [...] LIPASE -- -- 11* Recent Labs Lab 05/13/24 0816 05/11/24 1055 05/10/24 1444 GLC 94 199* 93 [...] with the patient's daughter. Yaritza Hurtado MD [facility] General Surgery * Noemí Bhat MD - 05/12/2024 12:34 PM CDT [facility] Medicine Progress Note - Hospitalist Service Date of Admission: 05/10/2024 Assessment & Plan Prerna Major is a 78 year old female with medical history of history of transverse myelitis, paraplegia, neurogenic bladder with chronic indwelling Cristobal catheter, decubitus ulcers with chronic osteomyelitis, RA on chronic prednisone therapy, HUI, HFpEF, atrial fibrillation, hypertension, gastric ulcer presented to the ED with weakness. --Admitted [facility] on 03/06 -03/14/2024 for septic shock secondary to E. coli UTI with bacteremia, stage IV right ischial tuberosity decubitus ulcer. --Readmitted at [facility] on 03/21/[address] showed a sacral decubitus ulcer extending to the sacrum, right deep gluteal soft tissue tunneling and lower gluteal/upper thigh ulceration extending to the ischial tuberosity with evidence of chronic osteomyelitis. General surgery, infectious disease followed and recommended transfer to tertiary center. ---Was admitted at [facility] 03/24 to 03/31/2024. General surgery, infectious disease, [...] --Address medical issues as discussed above. Continue INDUSTRIAL ELECTRICIAN Tylenol. Continue INDUSTRIAL ELECTRICIAN gabapentin. Continue INDUSTRIAL ELECTRICIAN as needed oxycodone, minimize use as able [...] atelectasis, effusions, or pneumothorax. Moderate atherosclerotic disease. INDUSTRIAL ELECTRICIAN Lasix held on admission. Restarted on 05/12/2024 Continue INDUSTRIAL ELECTRICIAN Toprol, switch to immediate release 25 mg twice daily with hold parameters. ---- INDUSTRIAL ELECTRICIAN not on aspirin or statin. Defer further cardiac workup to outpatient. Intake output monitoring, daily weights. Hypokalemia. Potassium replacement ordered , continue IV fluids normal saline with KCl. Potassium normal at 4.1 Obstructive sleep apnea Uses BiPAP as outpt. Has chronic CO2 retention. Resume BiPAP per home settings. Rheumatoid arthritis Continue on INDUSTRIAL ELECTRICIAN on prednisone 10 mg daily. Chronic Anemia [...] if elevated will consider sliding scale insulin. INDUSTRIAL ELECTRICIAN not on meds. Age-appropriate health maintenance as [...] and stable Noemí Bhat MD Hospitalist Service [facility] Securely message with studdex (more info) Text page via [facility]! Paging/Directory Interval History Chart reviewed, discussed with [...] Getting wound cares per bedside RN and computer analyst. Bilateral lower extremities are atrophic with history of paraplegia Psychiatry; calm and cooperative, pleasant Medical Decision Making Data * Noemí Bhat MD - 05/11/2024 1:22 PM CDT [facility] Medicine Progress Note - Hospitalist Service Date of Admission: 05/10/2024 Assessment & Plan Prerna Major is a 78 year old female with medical history of history of transverse myelitis, paraplegia, neurogenic bladder with chronic indwelling Cristobal catheter, decubitus ulcers with chronic osteomyelitis, RA on chronic prednisone therapy, HUI, HFpEF, atrial fibrillation, hypertension, gastric ulcer presented to the ED with weakness. --Admitted [facility] on 03/06 -03/14/2024 for septic shock secondary to E. coli UTI with bacteremia, stage IV right ischial tuberosity decubitus ulcer. --Readmitted at [facility] on 03/21/[address] showed a sacral decubitus ulcer extending to the sacrum, right deep gluteal soft tissue tunneling and lower gluteal/upper thigh ulceration extending to the ischial tuberosity with evidence of chronic osteomyelitis. General surgery, infectious disease followed and recommended transfer to tertiary center. ---Was admitted at [facility] 03/24 to 03/31/2024. General surgery, infectious disease, [...] --Address medical issues as discussed above. Continue INDUSTRIAL ELECTRICIAN Tylenol. Continue INDUSTRIAL ELECTRICIAN gabapentin. Continue INDUSTRIAL ELECTRICIAN as needed oxycodone, minimize use as able [...] effusions, or pneumothorax. Moderate atherosclerotic disease. Hold INDUSTRIAL ELECTRICIAN Lasix in the setting of sepsis, fluid resuscitation. Continue INDUSTRIAL ELECTRICIAN Toprol, switch to immediate release 25 mg twice daily with hold parameters. ---- INDUSTRIAL ELECTRICIAN not on aspirin or statin. Defer further cardiac workup to outpatient. Telemetry monitoring. Intake output monitoring, daily weights. Hypokalemia. Potassium replacement ordered , continue IV fluids normal saline with KCl. Potassium normal at 4.1 Obstructive sleep apnea Uses BiPAP as outpt. Has chronic CO2 retention. Resume BiPAP per home settings. Rheumatoid arthritis Continue on INDUSTRIAL ELECTRICIAN on prednisone 10 mg daily. Chronic Anemia [...] if elevated will consider sliding scale insulin. INDUSTRIAL ELECTRICIAN not on meds. Age-appropriate health maintenance as [...] and stable Noemí Bhat MD Hospitalist Service [facility] Securely message with studdex (more info) Text page via [facility], [facility]! Paging/Directory Interval History Chart reviewed, discussed with bedside RN and computer analyst Patient resting comfortably in bed complains of [...] Skin: Decubitus ulcers not examined by me. placing judge dressed the wounds just recently Psychiatry; calm and cooperative, pleasant Medical Decision Making Data documented in this encounter H&P Notes * Ambar Joseph MD - 05/10/2024 5:58 PM CDT [facility] History and Physical Hospitalist Prerna Major Age: [...] presented to the ED with weakness. --Admitted [facility] on 03/06 -03/14/2024 for septic shock secondary to E. coli UTI with bacteremia, stage IV right ischial tuberosity decubitus ulcer. --Readmitted at [facility] on 03/21/[address] showed a sacral decubitus ulcer extending to the sacrum, right deep gluteal soft tissue tunneling and lower gluteal/upper thigh ulceration extending to the ischial tuberosity with evidence of chronic osteomyelitis. General surgery, infectious disease followed and recommended transfer to tertiary center. ---Was admitted at [facility] 03/24 to 03/31/2024. General surgery, infectious disease, [...] --Address medical issues as discussed above. Continue INDUSTRIAL ELECTRICIAN Tylenol. Continue INDUSTRIAL ELECTRICIAN gabapentin. Continue INDUSTRIAL ELECTRICIAN as needed oxycodone, minimize use as able [...] effusions, or pneumothorax. Moderate atherosclerotic disease. Hold INDUSTRIAL ELECTRICIAN Lasix in the setting of sepsis, fluid resuscitation. Continue INDUSTRIAL ELECTRICIAN Toprol, switch to immediate release 25 mg twice daily with hold parameters. ---- INDUSTRIAL ELECTRICIAN not on aspirin or statin. Defer further cardiac workup to outpatient. Telemetry monitoring. Intake output monitoring, daily weights. Hypokalemia. Potassium replacement, continue IV fluids normal saline with KCl. Recheck potassium in AM. Obstructive sleep apnea Uses BiPAP as outpt. Has chronic CO2 retention. Resume BiPAP per home settings. Rheumatoid arthritis Continue on INDUSTRIAL ELECTRICIAN on prednisone 10 mg daily. Chronic Anemia [...] if elevated will consider sliding scale insulin. INDUSTRIAL ELECTRICIAN not on meds. Age-appropriate health maintenance as [...] presented to the ED with weakness. --Admitted [facility] on 03/06 -03/14/2024 for septic shock secondary to E. coli UTI with bacteremia, stage IV right ischial tuberosity decubitus ulcer. --Readmitted at [facility] on 03/21/[address] showed a sacral decubitus ulcer extending to the sacrum, right deep gluteal soft tissue tunneling and lower gluteal/upper thigh ulceration extending to the ischial tuberosity with evidence of chronic osteomyelitis. General surgery, infectious disease followed and recommended transfer to tertiary center. ---Was admitted at [facility] 03/24 to 03/31/2024. General surgery, infectious disease, [...] back unable to be examined, in ED [facility]. PSYCHIATRY Cooperative Data: All new lab and imaging data was reviewed. documented in this encounter Procedure Notes * Dede Downing RN - 05/18/2024 9:19 AM CDTAssociated Order(s): Single Lumen Midline Placement [facility] Single Lumen Midline Placement Date/Time: 05/18/2024 [...] the procedure a time out was called [place] Protocol: the Joint Commission [place] Protocol was followed Preparation: Patient was prepped [...] size: 4 Fr Brand: Bard Lot number: [id number] Placement method: MST and ultrasound Number of [...] this encounter Consult Notes * Raven Deleon N - 05/21/2024 12:25 PM CDTAssociated Order(s): PHARMACY LIAISON FOR MEDICATION COVERAGE CONSULT Summary: Buprenorphine and pregabalin coverage check Patient has Medicare Advantage through [employer]. Buprenorphine 5mcg patch: $95/mo. Pregabalin 50mg: $47/mo. Raven Deleon Coating Engineer/Liaison, Discharge Pharmacy [phone] (voice or text) [email or web address] Available on studdex and Teams * Leela Degroot, AMIRAH CASTABLES WORKER - 05/21/2024 11:39 AM CDTAssociated Order(s): PAIN MANAGEMENT ADULT IP CONSULT Images from the original note were not included. [facility] ACUTE PAIN SERVICE CONSULTATION [facility] studdex Web Console Leela Televisit Time start video: 10:51 [...] planned procedure. Patient is familiar to this typewriter repairer please see note from 05/12/24 for details [...] Senna-docusate -Opioid prescriber Flo Lanier MD -[place] SHANK STAPLER pulled from system on no controlled substance note . Discussed by patrice Mars PharmD covering floor and verified script of Oxycodone at last discharge and othe script of Oxycodone consistently from [facility] This indicates discrepancy Discharge Recommendations - We [...] APRN,CONY, ACHPN, PGMT- Acute Pain Team ( [place], , [facility]) 8-4:30 after 3:30 page warehouse technician No weekend coverage Securely message with the eegoesole (learn more here) * Johanny Harrison RN - 05/17/2024 12:07 PM CDTAssociated Order(s): WOUND OSTOMY CONTINENCE NURSE IP CONSULT Images from the original note were not included. [facility] PRE-OP OSTOMY CONSULTATION AND ASSESSMENT INTAKE Type of Stoma Planned: Permanent v. Temporary Colostomy Diagnosis Pertinent to Stoma: chronic osteomyelitis and constipation Type of Surgery: lap colostomy Surgery Date: 05/18 Surgeon: [facility]: [facility] Current Living Situation: House Anticipated Discharge Location Post Hospital Stay: House EDUCATION ASSESSMENT Present for Teaching Session: Patient and Family Member Madalyn Hernandez (also mary) Interior Block Wirer Present: NA Significant Vision Issues: No Hand [...] patient EDUCATION Teaching Folder Given: Yes Instruction: [facility] Role, Activity, Anatomy, Bathing: Ostomy supplies are water proof, Clothing, Diet,Fluids: Drink 6-8 glasses of non-caffeinated fluids daily, Hospital Stay: basics, Pouching Products: Showed pouching system, Supply Ordering, and Support Group Total Time Spent with Patient: 90 minutes Johanny FOURNIER 1st choice: Securely message with studdex ([facility] studdex [facility]) (2nd option: [facility] Office , messages checked periodically Mon- Fri 8a-4p) * Franca Jim MD - 05/16/2024 10:44 AM CDTAssociated Order(s): COLORECTAL SURGERY IP CONSULT; COLORECTAL SURGERY IP CONSULT Images from the original note were not included. [facility] Colon and Rectal Surgery Consult Note Name: [...] She would benefit from teaching pre-operatively by EDU. Past Medical History: Past Medical History: Diagnosis [...] 650 mg Oral Q6H Leela Degroot APRN CASTABLES WORKER 650 mg at 05/16/24 0916 amoxicillin-clavulanate (AUGMENTIN) 875-125 MG per tablet 1 tablet 1 tablet Oral Q12H [facility] (06/01) Adeline Varela MD 1 tablet at 05/16/24 0914 diclofenac (VOLTAREN) 1 % topical gel 4 g 4 g Topical TID Leela Degroot APRN CASTABLES WORKER 4 g at 05/16/24 0922 doxycycline hyclate (VIBRAMYCIN) capsule 100 mg 100 mg Oral Q12H [facility] (06/01) Adeline Varela MD 100 mg at 05/16/24 0914 furosemide (LASIX) tablet 40 mg 40 mg Oral Daily Noemí Bhat MD 40 mg at 05/16/24 0914 gabapentin (NEURONTIN) capsule 400 mg 400 mg Oral TID Leela Degroot APRN CASTABLES WORKER 400 mg at 05/16/24 0916 heparin ANTICOAGULANT injection 5,000 Units 5,000 Units Subcutaneous Q8H Ambar Joseph MD 5,000 Units at 05/16/24 0517 lactobacillus rhamnosus (GG) (CULTURELL) capsule 1 capsule 1 capsule Oral Daily Ambar Joseph MD 1 capsule at 05/16/24 0914 Lidocaine (LIDOCARE) 4 % Patch 3 patch 3 patch Transdermal Q24h Lelea Degroot APRN CASTABLES WORKER 3 patch at 05/15/242015 metoprolol tartrate (LOPRESSOR) tablet 25 mg 25 mg Oral BID Ambar Joseph MD 25 mg at multivitamin w/minerals (THERA-VIT-M) tablet 1 tablet 1 tablet Oral Daily Noemí Bhat MD 1 tablet at 05/16/24 09 naproxen (NAPROSYN) tablet 250 mg 250 mg Oral TID w/meals Leela Degroot APRN CASTABLES WORKER 250 mg at 05/16/24 0914 polyethylene glycol [...] C. difficile Antigen and Toxins A/B EIA [[id number]] Stool from Per Rectum Final result Component Value C Difficile Toxin B by PCR Negative A negative result does not exclude actual disease due to C. difficile and may be due to improper collection, handling and storage of the specimen or the number of organisms in the specimen is below the detection limit of the assay. 05/12/2024 1220 05/13/2024 1046 Urine Culture [[id number]] Urine, Cristobal Catheter Final result Component Value Culture No Growth 05/10/2024 1448 05/15/2024 1531 Blood Culture Peripheral Blood [[id number]] Peripheral Blood Final result Component Value Culture No Growth 05/10/2024 1446 05/10/2024 1608 Symptomatic Influenza A/B, RSV, & SARS-CoV2 PCR (COVID-19) Nasopharyngeal [[id number]] Swab from Nasopharyngeal Final result Component Value [...] would like to receive her care at [facility]. If she prefers to stay and have his completed this admission, could add on for Friday. Would bowelprep and taiwo tomorrow. For questions/paging, please contact the CRS office at [phone]. Mechelle Jim MD Colon and Rectal Surgery [facility] [address] [facility] [address] [place] [address] T: [phone] F: [phone] * Linda Ware RN - 05/15/2024 10:03 AM CDT Care Management Discharge Note Discharge Date: 05/15/2024 Discharge Disposition: Home, Home Care resumption [facility] RN/PRACTICE MANAGER and [facility] (wound care and [facility]) [...] both [facility] and [facility] Additional Information: Area Development Consultant met with the patient at the bedside. Patient is A+Ox4. Patient cleared for discharge to homewith family with resumption of homecare through [facility] for RN/PRACTICE MANAGER, PROJECT LANDSCAPE ARCHITECT services of Daughter, and [facility] for [...] continue to follow. Linda Ware RN, BSN, ACM Care Transitions Specialist [facility] Care Transitions Specialist [phone] [place] [id number] [email or web address] Office: [phone] [facility] * Jessica Rudolph RN - 05/13/2024 11:21 AM CDTAssociated Order(s): WOUND OSTOMY CONTINENCE NURSE IP CONSULT [facility] WO Nurse Inpatient Assessment Consulted for: Discuss [...] ulcer presented to the ED with weakness. Jessica Rudolph CWMANJINDERN Dept. Vocera- Contact WO Nurse (Zaynab) via Vocera Dept. Office Number: [phone] * Yaima Roman RN - 05/12/2024 3:21 [...] Communication Assessment Patient's communication style: spoken language (Icelandic or Bilingual) Hearing Difficulty or Deaf: yes [...] care services: Yes Skilled Home Care Services: Penitentiary, Home Health Aid Community Resources: Other (see [...] Insecurity: No Food Insecurity (10/19/2023) Received from [facility] Hunger Vital Sign Worried About Running Out of Food in the Last Year: Never true Ran Out of Food in the Last Year: Never true Depression: Not on file Housing Stability: Low Risk (10/19/2023) Received from [facility] Housing Stability What is your living situation today?: I have a steady place to live Tobacco Use: Low Risk (11/07/2023) Received from [facility] Patient History Smoking Tobacco Use: Never Smokeless Tobacco Use: Never Passive Exposure: Not on file Financial Resource Strain: Low Risk (04/02/2024) Received from [facility] Financial Resource Strain Difficulty of Paying Living Expenses: 2 Difficulty of Paying Living Expenses: Not on file Alcohol Use: Not on file Transportation Needs: No Transportation Needs (04/02/2024) Received from [facility] Transportation Needs Lack of Transportation (Medical): 1 Physical Activity: Not on file Interpersonal Safety: Not At Risk (10/19/2023) Received from [facility] Humiliation, Afraid, Rape, and Kick questionnaire Fear of Current or Ex-Partner: No Emotionally Abused: No Physically Abused: No Sexually Abused: No Stress: Not on file Social Connections: Unknown (02/03/2022) Received from [facility] Social Connections Frequency of Communication with Friends and Family: Not on file Health Literacy: Not on file Functional Status: Prior to admission patient needed assistance: Dependent ADLs:: Bathing, Dressing, Grooming, Incontinence, Positioning, Transfers, Wheelchair-withassist, Toileting Dependent IADLs:: Cleaning, Cooking, Laundry, Shopping, Meal Preparation, Medication Management, Money Management, Transportation, Incontinence Mental Health Status: Chemical Dependency Status: Values/Beliefs: Spiritual, Cultural Beliefs, Evangelical Practices, Values that affect care: yes (Latter-Day) Additional Information: Per consult for discharge planning, met with patient to discuss discharge planning. Per patient, she and her spouse, who has dementia, live with their daughter in her daughter's home. Per patient, she is mostly bed bound but is able to get into a wheelchair with assist of 1 and dustin lift. Patient shared that her daughter is also her paid PROJECT LANDSCAPE ARCHITECT. Patient stated that she is open to [facility] dental officer 2x week wound care & cristobal catheter exchange once a month and PRACTICE MANAGER services. Patient is also open to [facility] and has an SANDY the see pt once a week and oversees her wound care orders. Patient shared her wound care is 3x week, but if dressing becomes soiled, her daughter does the wound care. Patient shared that a friend and niece also assist with her care. Called [facility] and Intake confirmed that pt is open to Skilled RN & PRACTICE MANAGER and requested discharge orders faxed to [phone]. Called [facility] and spoke to . Lady confirmed pt is seen by an SANDY once a week for wound care and requsted face sheet and discharge orders with wound care orders faxed to [phone]. Inpatient Maintenance Of Way Foreman will continue follow for discharge planning. MEME Vivar RN, BSN, OCN Inpatient Care Coordination [address] Office: [phone] * Leela Degroot APRN CASTABLES WORKER - 05/12/2024 12:33 PM CDTAssociated Order(s): PAIN MANAGEMENT ADULT IP CONSULT Images from the original note were not included. [facility] ACUTE PAIN SERVICE CONSULTATION [facility] studdex Web Console Leela Date of Admission: 05/10/2024 Date [...] 7.5 mg (3), IV 0 mg. Prerna Martinezt Has used in the past 24 hours [...] this consultation in the care of Prerna Byrd Pedrito. Leela Degroot RN, PGMT-BC PROFESSOR COMPUTER SCIENCE,CASTABLES WORKER, ACHPN Acute Pain Team ( [facility], [facility], [facility]) 8-4:30 after 3:30 page warehouse technician No weekend coverage Securely message with the studdex Web Console (learn more here) * Yaritza Hurtado MD - 05/11/2024 12:00 PM CDTAssociated Order(s): SURGERY GENERAL IP CONSULT [facility] Consult Note - General Surgery Service Date [...] (131 lb 6.3 oz). Yaritza Hurtado MD [facility] Non-urgent messages: Securely message with studdex (more info) Text page via [facility] Paging/Directory Chief Complaint Pain from sacral wounds [...] Narrative EXAM: CT CHEST/ABDOMEN/PELVIS W CONTRAST LOCATION: [facility] DATE: 05/10/2024 INDICATION: Fever, paraplegia, abdominal pain [...] from the original note were not included. [facility] Nurse Inpatient Assessment Consulted for: Wound acute on chronic osteomyelitis Summary: patient with POA wounds to buttock x3 stage 4, initial [facility] visit 05/11 Patient History (according to provider [...] STATUS: initial assessment Supplies ordered: ordered through [employer] from pharmacy, supplies stored on unit, and [...] areas Positioning Equipment: as needed Fluidized positioner (#[id number] or #[id number]) to help maintain side lying position. Chair positioning: Chair cushion (#[id number]) , Assist patient to reposition hourly, and [...] Then pat dry 3. Apply skin prep ([employer] no sting skin barrier film or sure [...] None, at this time (discussed with provider, MD will be placing surgical consult for coverage) Education provided: importance of repositioning, plan of care, wound progress, Infection prevention, Moisture management, Hygiene, and Off-loading pressure Discussed plan of care with: Patient, Nurse, and Physician WOC nurse follow-up plan: weekly Notify WOC if wound(s) deteriorate. Nursing to notify the Provider(s) and re-consult the [facility] Nurse if new skin concern. DATA: Current [...] Johanny JUSTICEOCTaj 1st choice: Securely message with studdex ([facility]) (2nd option: [facility] Office , messages checked periodically Mon- Fri [...] Diet history - she was eating regularly [employer] - Supplements - She does a Premier [...] Weight 59.6 kg (actual) Estimated Energy Needs: 9671-2890 kcals (25-30 Kcal/Kg) Justification: maintenance, wound healing Estimated Protein Needs: 78-89 grams protein (1.3-1.5 g pro/Kg) Justification: wound healing Estimated Fluid Needs: 7053-7965 mL (1 mL/Kcal) Justification: maintenance MALNUTRITION: % [...] from the original note were not included. [facility] Infectious Disease Consultation Date of Admission: 05/10/2024 [...] bacteremia with septic shock requiring hospitalization at [facility]/2024 -Chronic medical conditions -HUI, HFpEF, atrial fibrillation, [...] call ID with dressing change tomorrow Adeline Varela MD Reason for Consult Reason for consult: [...] with osteomyelitis. Most recently was admitted to [facility] with candidal albicans bacteremia and was admitted to [facility] for E.coli septic shock in February. Today [...] it with pertinent information if needed. Prerna Byrd Pedrito Family History I have reviewed this patient's [...] All laboratory data reviewed Component Latest Ref [facility] 05/10/2024 2:46 PM Influenza A Negative Negative Influenza B Negative Negative Resp Syncytial Virus Negative Negative SARS CoV2 PCR Negative Negative Component Latest Ref [facility] 05/10/2024 2:44 PM CRP Inflammation <5.00 mg/L 61.98 (H) CK Total 26 - 192 U/L 15 (L) Component Latest Ref [facility] 05/10/2024 2:44 PM WBC 4.0 - 11.0 [...] - 450 10e3/uL 287 Component Latest Ref [facility] 05/10/2024 2:44 PM Sodium 135 - 145 [...] 1448 05/11/2024 0331 Blood Culture Peripheral Blood [[id number]] Peripheral Blood Preliminary result Component Value Culture No growth after 12 hours P 05/10/2024 1446 05/10/2024 1608 Symptomatic Influenza A/B, RSV, & SARS-CoV2 PCR (COVID-19) Nasopharyngeal [[id number]] Swab from Nasopharyngeal Final result Component Value Influenza A PCR Negative Influenza B PCR Negative RSV PCR Negative SARS CoV2 PCR Negative Imaging EXAM: CT CHEST/ABDOMEN/PELVIS W CONTRAST LOCATION: [facility] DATE: 05/10/2024 INDICATION: Fever, paraplegia, abdominal pain [...] Junior RN - 05/10/2024 6:06 PM CDT [facility] ED Nurse Handoff Report ED Chief complaint: [...] - Current: bed bound Patient's Preferred language: Icelandic Interior Block Wirer Needed?: No Isolation: None Infection: Not Applicable [...] performed were none. ED NURSE PHONE NUMBER: *[id number] * Simona Bashir RN - 05/10/2024 2:25 [...] Pressure Ventricular Rate 103 Atrial Rate 103 OK Interval 144 QRS Duration 72 QT 340 QTc 445 P Gentry 65 R AXIS 25 T Gentry 50 Interpretation ECG Sinus tachycardia Possible left [...] Urine Negative Ketones Urine 20 (*) Specific Maria Stein Urine 1.026 Blood Urine Trace (*) pH [...] a tertiary care facility such as the [facility] although no beds readily available at [...] M46.28 DISPOSITION: Admitted Scribe Disclosure: Slime Garcia, am serving as a scribe at 3:12 PM on 05/10/2024 to document services personally performed by Nemesio Davila MD based on my observations and the provider's statements to me. 05/10/2024 [facility] EMERGENCY DEPT Nemesio Davila MD [...] Urine Negative Ketones Urine 20 (*) Specific Maria Stein Urine 1.026 Blood Urine Trace (*) pH [...] Pressure Ventricular Rate 103 Atrial Rate 103 OK Interval 144 QRS Duration 72 QT 340 QTc 445 P Gentry 65 R AXIS 25 T Gentry 50 Interpretation ECG Sinus tachycardia, normal axis, [...] mEq/L infusion (0 mLs Intravenous Stopped 05/11/24 0456) potassium chloride (KLOR-CON) Packet 40 mEq (has [...] 300 mg (300 mg Oral $Given 05/11/24 08) lactobacillus rhamnosus (GG) (CULTURELL) capsule 1 capsule (1 capsule Oral $Given 05/11/24 08) predniSONE (DELTASONE) tablet 10 mg (10 mg Oral or NG Tube $Given 05/11/24 08) zinc sulfate (ZINCATE) capsule 220 mg (220 mg Oral or NG Tube $Given 05/10/24 4722) lidocaine 1 % 0.1-1 mL (has no [...] 25 mg (25 mg Oral $Given 05/11/24 08) naloxone (NARCAN) injection 0.2 mg (has no [...] 975 mg (975 mg Oral $Given 05/10/24 1748) linezolid (ZYVOX) infusion 600 mg (0 mg Intravenous Stopped 05/10/242001) metroNIDAZOLE (FLAGYL) infusion 500 mg (500 mg Intravenous $New Bag 05/10/242009) Procedures Procedures Discussion of Management Radiologist, Dr. Lock Admitting hospitalist Dr. Joseph Staffed with Dr. Davila ED Course ED Course as of 05/11/24 0858 FriMay 10, 2024 1434 I evaluated and examined the patient 1700 I reevaluate the patient, no change, condition. 1711 I spoke with hospital medicine, Dr. Joseph, who preferred to await CT results to determine if there is osteomyelitis and need for transfer for services not available at [facility]. 1719 I spoke with [place] radiology regarding CT results, findings are consistent with chronic osteomyelitis with possible acute osteomyelitis at the coccyx. 1745 I spoke with the clinical pharmacist regarding antibiotic choices given patient's allergies. He recommends linezolid and Flagyl as well as the previously ordered ceftriaxone. Optional/Additional Documentation None Medical Decision Making / Diagnosis [facility] Diagnoses: None MIPS Cristobal catheter was inserted [...] goal(s). See goals on Care Plan in [facility] electronic health record for goal details. Goals [...] HH OT/PT, however, confirmed planper RN and rn long term care/SW is to discharge to TCU this date. Pt is okay with this plan. * Plan of Care - Ruchi Carlin PT - 05/26/2024 11:56 AM CDT PT [...] if needingmore supportive environment consider placement in penitentiary care facility. * Plan of Care - Alaina Malave RN - 05/24/2024 6:38 PM CDT Shift Note 9801-0401: Patient is alert and oriented x4. Mobility: Ax2 Lift, turn/ reposition Vitals/Tele: VSS, pain maintains around 5-9/10, pain medication given Aggression Stop Light: green Shift Summary: wound care completed. SW/CC involved, TCU placement found (see SW note). PT/ OT ordered. Cristobal patent and draining. Ostomy changed via C RN. Discharge Plan: TCU 05/25. Ride scheduled. [...] vSS on RA, Dilaudid for shyanne for 8/10 pain from lap sites and buttocks wound [...] placement. * Plan of Care - Jovani Pollock PT - 05/21/2024 11:49 AM CDT PT: [...] added for additional pain relief. Bowel/Bladder: Chronic critsobal w/ adequate UOP. Cristobal cares done. Colostomy [...] LR @ 75mL/hr Pain Management: pt pain 5/10. pt stated that is lowest it has been in a while. Pt has chronic pain. Bowel/Bladder: chronic Cristobal in place no BM this shift Skin/Wounds: Scattered bruising . Coccyx wound x3. Mepi x2 in place Bilateral feet +2-3 edema D/C Disposition: pending Other: Pt on contact precaution for MRSA * Brief Op Note - Peter Alfredo MD - 05/18/2024 6:52 PM CDT [facility] Brief Operative Note Pre-operative diagnosis: Decubitus ulcer [...] MD [facility] [phone]. ADDENDUM: PATIENT DATA Indicate Y or N: [...] PM CDT Goal Outcome Evaluation: Date/Time: 05/18/2024 (3566-4880) Mental Status: A&O x4 Activity/dangle: Mechanical lift [...] sigmoid end colostoy SURGEON: Peter Alfredo MD MATERIAL HAULER: Sanchez Sparks MD, [facility] Colorectal Surgery Fellow ANESTHESIA: General. ESTIMATED BLOOD [...] Kirk RN - 05/18/2024 7:06 AM CDT [id number] Orientation: A&Ox4 Aggression Stop Light: green Activity: Ax2 T/R,Lift, Diet/BS Checks: NPO except meds starting at 0500 Tele: None IV Access/Drains: no IV access, pt refused midline placement overnight, will get one placed in AM before procedure per vascular access note. Pain Management: 910 pain in buttocks, managed with PRN oxycodone [...] Notification Date/Time: 05/18/2024 at 0600 Notification Interaction: [employer] messaging Purpose of Notification SBAR Situation: 816 [...] PM CDT Goal Outcome Evaluation: Date/Time: 05/17/2024 ([id number]) Mental Status: A&O x4 Activity/dangle: Up with mechanical lift Diet: Clear liquid Pain: Oxycodone Cristobal/Voiding: Cristobal Tele/Restraints/Iso: Contact Precaution 02: No IV access- order for midline- Vascular [...] Person Name: Venkat Briceno Notification Date/Time:05/17/2024 @ 1254 Notification Interaction: [employer] Purpose of Notification: Clarification on PICC line [...] HFpEF, atrial fibrillation, hypertension, gastric ulcer 05/15/2024 2881-4390 Contact precautions maintained for MRSA Orientation A [...] x3. Wound care completed this shift. Consults: WOMUKESH Crews, Surg D/C Disposition: pending Other Info: -pt [...] Scattered bruising . Coccyx wound x3 Consults: WOMars, ID, Surg D/C Disposition: pending Other Info: -pt declines repositioning, education provided * Plan of Care - Izzy Grant RN - 05/16/2024 12:01 AM CDT Goal Outcome Evaluation: Summary Weakness , Osteomyelitis Hx Transverse myelitis, paraplegia, neurogenic bladder with chronic indwelling Cristobal catheter, decubitus ulcers with chronic osteomyelitis, RA on chronic prednisone therapy, HUI, HFpEF, atrial fibrillation, hypertension, gastric ulcer 05/15/2024 8571-9774 Orientation A &O x 4 Vitals/Tele VSS [...] Maciel RN - 05/14/2024 7:09 AM CDT 2570-8093 Orientation: a&ox4 Aggression Stop Light: green Activity: [...] Regular Tele: NSR IV Access/Drains: Cristobal. No MD WAYNE aware. Pain Management: Oxy PRN prior to [...] Cordon Notification Date/Time: 05/13/24 0644 Notification Interaction: vocera Purpose of Notification: Complained of itchiness, no PRN available, can you order one in? Noted scattered rashes in the abd area, neck and upper arms, denies SOB, VS WDL. Thanks Orders Received: Comments: * Plan of Care - Wyatt Tuttle RN - 05/13/2024 3:40 AM CDT Goal Outcome Evaluation: 05/12/24 4203-8267 Orientation: A/Ox4, pleasant Aggression Stop Light: green [...] 05/12/2024 6:06 PM CDT Goal Outcome Evaluation: 0817-5600 Orientation: AOx4 Aggression Stop Light: green Activity: [...] CDI, W/C completed today dressing changes. Consults: WOC, ID, gen surg D/C Disposition: pending Other Info: * Plan of Care - Eric Waldrop RN - 05/12/2024 6:45 AM CDT 2460-9922 Orientation: A/Ox4 Aggression Stop Light: green Activity: Ax2 lift Diet/BS Checks: reg Tele: NSR IV Access/Drains: R PIV SL Pain Management: pre medicated wound care with 7.5mg oxy- effective. PRN Oxy given x1 for pain 0615effective Abnormal VS/Results: VSS on 3L NC Bowel/Bladder: Chronic cristobal, Incontinent bowel Skin/Wounds: wounds on buttocks/coccyx CDI Consults: WOC, ID, gen surg D/C Disposition: TBD Other Info: -Wound cares done -contact precautions -refused Scheduled Senna, No BM this shift. * Plan of Care - Ana Rosa Elam RN - 05/11/2024 6:11 PM CDT Orientation: A&Ox4 Aggression Stop Light: green Activity: A2 lift, WC at baseline Diet/BS Checks: regular Tele: NSR IV Access/Drains: R PIV SL Pain Management: 8 out of 10 pain prn oxycodone given Abnormal VS/Results: VSS on 3L NC Bowel/Bladder: incontinent of b/b Skin/Wounds: wounds on buttocks/coccyx CDI Consults: WOMars, ID, gen surg D/C Disposition: [...] large wounds on R buttock/coccyx-- seen by [facility] today. Consults: JEANNIE D/C Disposition: MUKESH DENNIS, Gen Surg, SW/CM * Plan of Care [...] NS and mepi placed on top Consults: JEANNIE, MUKESH, Gen Surg, SW/CM D/C Disposition: tbd Other Info: -pt arrived around 2230 last night Associated attestation - Eric Waldrop RN - 05/11/2024 6:56 AM CDT IEric RN, can attest to the Ship'S Cook's note and assessment. Care was provided underdirect [...] x 7 days supply Changes made to [employer] medication list: Added: Augmentin, Flagyl Deleted: potassium Changed: furosmide, metoprolol Allergies reviewed with patient and updates made in EHR: yes Medication History Completed By: Kaela Martinez RPH 05/10/2024 7:06 PM [employer] Med List Medication Sig Last Dose acetaminophen [...] (LAB USE ONLY) (05/24/2024 7:31 AM CDT) Pathologist [facility] Hold Specimen 0 05/24/2024 8:21 AM CDT LABORATORY Blood STRUCTURE OF RIGHT UPPER LIMB / Unknown Venipuncture / Unknown 05/24/2024 7:31 AM CDT 05/24/2024 8:09 AM CDT Ambar Joseph MD LAB - BLOOD ORDERABL ES LABORATORY [facility] Acute Care Lab [address], [address] [place] [address], [facility] [phone] * Platelet count (05/24/2024 7:31 AM CDT) [facility] Platelet Count 286 150 - 450 10e3/uL 05/24/2024 8:13 AM CDT LABORATORY Blood STRUCTURE OF RIGHT UPPER LIMB / Unknown Venipuncture / Unknown 05/24/2024 7:31 AM CDT 05/24/2024 8:10 AM CDT Peter Alfredo MD LAB - BLOOD ORDERABL ES LABORATORY [facility] Acute Care Lab [address], [address] [place] [address], [facility] [phone] * (ABNORMAL) CBC with platelets (05/21/2024 7:05 AM CDT) WBC Count 11.2(H) 4.0 - 11.0 10e3/uL [...] PA-C LAB - BLOOD ORDERA BLES LABORATORY [facility] Acute Care Lab [address] floor, [address] [place] [address], [facility] [phone] * (ABNORMAL) Basic metabolic panel (05/21/2024 7:05 AM CDT) Sodium 143 135 - 145 mmol/L 05/21/2024 7:44 AM CDT LABORATORY Potassium 3.4 3.4 - 5.3 mmol/L 05/21/2024 7:44 AM CDT LABORATORY Chloride 104 98 - 107 mmol/L 05/21/2024 7:44 AM T LABORATORY Carbon Dioxide (CO2) 32(H) 22 - 29 mmol/L 05/21/2024 7:44 AM T LABORATORY Anion Gap 7 7 - 15 mmol/L 05/21/2024 7:44 AM T LABORATORY Urea Nitrogen 31.0(H) 8.0 - 23.0 mg/dL 05/21/2024 7:44 AM T LABORATORY Creatinine 0.44(L) 0.51 - 0.95 mg/dL 05/21/2024 7:44 AM T LABORATORY GFR Estimate >90 >60 mL/min/1.7 3m2 05/21/2024 7:44 AM T LABORATORY Comment:eGFR calculated usin 2020 [...] 70 - 99 mg/dL 05/21/2024 7:44 AM [facility] LABORATORY Blood STRUCTURE OF LEFT HAND / Unknown Venipuncture / Unknown 05/21/2024 7:05 AM CDT 05/21/2024 7:23 AM CDT Janak Robledo PA-C LAB - BLOOD ORDERA BLES Performing Organization Address City/[facility]/ZIP Co de Phone Number LABORATORY [facility] [address], [address] [place] [address], [facility] [phone] * (ABNORMAL) Glucose by meter (05/19/2024 10:21 PM CDT) GLUCOSE BY METER POCT 157(H) 70 - 99 mg/dL 05/19/2024 10:28 PM CDT LABORATORY POC Blood, Capillary BLOOD SPECIMEN / Unknown 05/19/2024 10:21 PM CDT 05/19/2024 10:28 PM CDT Ambar Joseph MD LAB - BEAKER POCT Performing Organization Address City/[facility]/ZIP Co de Phone Number LABORATORY POC [facility] [address], [address] [place] [address], [facility] * (ABNORMAL) Phosphorus (05/19/2024 6:06 AM CDT) Phosphorus 4.8(H) 2.5 - 4.5 mg/dL 05/19/2024 7:15 AM CDT LABORATORY Blood STRUCTURE OF RIGHT UPPER LIMB / Unknown Venipuncture / Unknown 05/19/2024 6:06 AM CDT 05/19/2024 6:34 AM CDT Peter Alfredo MD LAB - BLOOD ORDERABL ES LABORATORY [facility] [address], [address] [place] [address], [facility] [phone] * Magnesium (05/19/2024 6:06 AM CDT) Magnesium 1.9 1.7 - 2.3 mg/dL 05/19/2024 7:15 AM CDT LABORATORY Blood STRUCTURE OF RIGHT UPPER LIMB / Unknown Venipuncture / Unknown 05/19/2024 6:06 AM CDT 05/19/2024 6:34 AM CDT Peter Alfredo MD LAB - BLOOD ORDERABL ES LABORATORY [facility] [address], [address] [place] [address], [facility] [phone] * (ABNORMAL) CBC with platelets (05/19/2024 6:06 AM CDT) [facility] WBC Count 12.5(H) 4.0 - 11.0 10e3/uL [...] MD LAB - BLOOD ORDERABL ES LABORATORY [facility] [address], [address] [place] [address], [facility] [phone] * (ABNORMAL) Basic metabolic panel (05/19/2024 6:06 [...] >90 >60 mL/min/1.7 3m2 05/19/2024 7:15 AM CDT LABORATORY Comment:eGFR calculated usin g 2020 CKD-EPI [...] MD LAB - BLOOD ORDERABL ES LABORATORY [facility] Acute Care Lab [address], [address] [place] [address], [facility] [phone] * Adult Type and Screen (05/18/2024 11:18 AM CDT) ABO/RH(D) A POS 05/18/2024 7:11 AM CDT BLOOD BANK Antibody Screen Negative Negative 05/18/2024 7:11 AM CDT BLOOD BANK SPECIMEN EXPIRATION DATE [id number] 05/18/2024 7:11 AM CDT BLOOD BANK Blood BLOOD SPECIMEN / Unknown Venipuncture / Unknown 05/18/2024 11:18 AM CDT 05/18/2024 11:35 AM CDT Janak Robledo PA-C LAB - BLOOD BANK T EST ORDER Performing Organization Address City/State/[facility] Co de Phone Number BLOOD BANK [address] [place] [address], [facility] * (ABNORMAL) Basic metabolic panel (05/18/2024 11:18 [...] PA-C LAB - BLOOD ORDERA BLES LABORATORY [facility] [address], [address] [place] [address], [facility] [phone] * (ABNORMAL) Hemoglobin (05/18/2024 11:18 AM CDT) Hemoglobin 10.2(L) 11.7 - 15.7 g/dL 05/18/2024 11:39 AM CDT LABORATORY Blood BLOOD SPECIMEN / Unknown Venipuncture / Unknown 05/18/2024 11:18 AM CDT 05/18/2024 11:35 AM CDT Janak Robledo PA-C LAB - BLOOD ORDERA BLES LABORATORY [facility] [address], [address] [place] [address], [facility] [phone] * Platelet count (05/18/2024 11:18 AM CDT) Platelet Count 273 150 - 450 10e3/uL 05/18/2024 11:39 AM CDT LABORATORY Blood BLOOD SPECIMEN / Unknown Venipuncture / Unknown 05/18/2024 11:18 AM CDT 05/18/2024 11:35 AM CDT Peter Alfredo MD LAB - BLOOD ORDERABL ES LABORATORY [facility] [address], [address] [place] [address], [place] [phone] * (ABNORMAL) CK total (05/18/2024 11:18 AM CDT) CK 12(L) 26 - 192 U/L 05/18/2024 12:01 PM CDT LABORATORY Blood BLOOD SPECIMEN / Unknown Venipuncture / Unknown 05/18/2024 11:18 AM CDT 05/18/2024 11:35 AM CDT Peter Alfredo MD LAB - BLOOD ORDERABL ES Performing Organization Address City/[facility]/ZIP Co de Phone Number LABORATORY [facility] [address], [address] [place] [address], [place] [phone] * Single Lumen Midline Placement (05/18/2024 9:15 AM CDT) Narrative Dede Downing RN - 05/18/2024 9:15 AM CDT Dede Downing RN ? 05/18/2024 ??9:19 AM [facility] Single Lumen Midline Placement Date/Time: 05/18/2024 [...] procedure a time out was called ?? [place] Protocol: the Joint Commission [place] Protocol was followed ?? Preparation: Patient was [...] type: valved Catheter size: 4 Fr Brand: [employer] Lot number: [id number] Placement method: MST and ultrasound Number of [...] CBC with platelets (05/16/2024 8:42 AM CDT) [facility] WBC Count 15.9(H) 4.0 - 11.0 10e3/uL 05/16/2024 9:09 AM CDT LABORATORY RBC Count 3.99 3.80 - 5.20 10e6/uL 05/16/2024 9:09 AM CDT LABORATORY Hemoglobin 10.2(L) 11.7 - 15.7 g/dL 05/16/2024 9:09 AM CDT LABORATORY Hematocrit 35.0 35.0 - 47.0 % 05/16/2024 9:09 AM CDT LABORATORY MCV 88 78 - 100 fL 05/16/2024 9:[facility] MCH 25.6(L) 26.5 - 33.0 pg 05/16/2024 9:09 AM [facility] LABORATORY MCHC 29.1(L) 31.5 - 36.5 g/dL 05/16/2024 9:09 AM [facility] LABORATORY RDW 20.1(H) 10.0 - 15.0 % 05/16/2024 9:09 AM [facility] LABORATORY Platelet Count 285 150 - 450 10e3/uL 05/16/2024 9:09 AM [facility] LABORATORY Blood STRUCTURE OF RIGHT UPPER LIMB / Unknown Venipuncture / Unknown 05/16/2024 8:42 AM CDT 05/16/2024 9:05 AM CDT Anna Ashtyn Tana MG LAB - BLOOD ORDERA BLES LABORATORY [facility] [address], [address] [place] [address], [facility] [phone] * (ABNORMAL) Basic metabolic panel (05/16/2024 8:42 AM CDT) Sodium 142 135 - 145 mmol/L 05/16/2024 9:27 AM [facility] LABORATORY Potassium 3.7 3.4 - 5.3 mmol/L 05/16/2024 9:27 AM [facility] LABORATORY Chloride 104 98 - 107 mmol/L 05/16/2024 9:27 AM [facility] LABORATORY Carbon Dioxide (CO2) 31(H) 22 - 29 mmol/L 05/16/2024 9:27 AM [facility] LABORATORY Anion Gap 7 7 - 15 mmol/L 05/16/2024 9:27 AM [facility] LABORATORY Urea Nitrogen 27.0(H) 8.0 - 23.0 mg/dL 05/16/2024 9:27 AM [facility] LABORATORY Creatinine 0.33(L) 0.51 - 0.95 mg/dL 05/16/2024 9:27 AM [facility] LABORATORY GFR Estimate >90 >60 mL/min/1.7 3m2 05/16/2024 9:27 AM CDT LABORATORY Comment:eGFR calculated usin 2020 CKD-EPI equation. Calcium 8.9 8.8 - 10.4 mg/dL 05/16/2024 9:27 AM CDT LABORATORY Comment:Reference intervals for this [...] Fajardo MD LAB - BLOOD ORDERA BLES [facility] Lab [address], [address] [place] [address], [place] [phone] * Platelet count (05/15/2024 8:46 AM CDT) Platelet Count 255 150 - 450 10e3/uL 05/15/2024 9:30 AM CDT LABORATORY Blood STRUCTURE OF LEFT HAND / Unknown Venipuncture / Unknown 05/15/2024 8:46 AM CDT 05/15/2024 9:22 AM CDT Peter Alfredo MD LAB - BLOOD ORDERABL ES [facility] Lab [address], [address] [place] [address], [place] [phone] * C. difficile Toxin B PCR with [...] 4:01 PM CDT 05/14/2024 4:06 PM CDT [facility] LABORATORY - 05/14/2024 7:39 PM CDT The [employer] Xpert C. difficile Assay, performed on the Digital Orchid?? Instrument Systems, is a qualitative in vitro [...] MICRO GENERA L ORDERABLES [facility] LABORATORY [facility] Inf. Diseases Diag. Lab [address] [facility], [address] [place] [id number] * (ABNORMAL) Basic metabolic panel (05/13/2024 8:16 [...] 8.8 - 10.4 mg/dL 05/13/2024 9:14 AM CDT LABORATORY Comment:Reference intervals for this test were updated on 04/27/2024 to reflect our healthy population more accurately. There may be differences in the flagging of prior results with similar values performed with this method. Those prior results can be interpreted in the context of the updated reference intervals. Glucose 94 70 - 99 mg/dL 05/13/2024 9:14 AM CDT LABORATORY Blood STRUCTURE OF RIGHT HAND / Unknown Venipuncture / Unknown 05/13/2024 8:16 AM CDT 05/13/2024 8:40 AM CDT Noemí Bhat MD LAB - BLOOD ORDERABL ES LABORATORY [facility] [address], [address] [place] [address], [facility] [phone] * (ABNORMAL) CBC with platelets (05/13/2024 8:16 [...] MD LAB - BLOOD ORDERABL ES LABORATORY [facility] Lab [address], [place] [address], [facility] [phone] * Urine Culture (05/12/2024 12:20 PM CDT) Culture No Growth 05/13/2024 10:46 AM CDT [facility] Urine URINE SPECIMEN OBTAINED VIA [facility]IN[facility] CATHETER / Unknown Non-blood Collection / Unknown 05/12/2024 12:20 PM CDT 05/12/2024 12:28 PM CDT Noemí Bhat MD LAB - MICRO GENERAL ORDERABLES [facility] LABORATORY [facility] Inf. Diseases Diag. Lab [address] [facility], [address] [place] [address] * (ABNORMAL) Basic metabolic panel (05/11/2024 10:55 AM CDT) Sodium 138 135 - 145 mmol/L 05/11/2024 11:45 AM CDT LABORATORY Potassium 4.1 3.4 - 5.3 mmol/L 05/11/2024 11:45 AM CDT LABORATORY Chloride 106 98 - 107 mmol/L 05/11/2024 11:45 AM CDT LABORATORY Carbon Dioxide (CO2) 25 22 - 29 mmol/L 05/11/2024 11:45 AM [facility] LABORATORY Anion Gap 7 7 - 15 mmol/L 05/11/2024 11:45 AM CDT LABORATORY Urea Nitrogen 12.0 8.0 - 23.0 mg/dL 05/11/2024 11:45 AM CDT LABORATORY Creatinine 0.29(L) 0.51 - 0.95 mg/dL 05/11/2024 11:45 AM T LABORATORY GFR Estimate >90 >60 mL/min/1.7 3m2 05/11/2024 11:45 AM [facility] LABORATORY Comment:eGFR calculated usin 2020 CKD-EPI equation. Calcium 8.4(L) 8.8 - 10.4 mg/dL 05/11/2024 11:45 AM [facility] LABORATORY [...] MD LAB - BLOOD ORDERABL ES LABORATORY [facility] [address], [address] [place] [address], [facility] [phone] * (ABNORMAL) WBC count (05/11/2024 10:55 AM CDT) WBC Count 13.4(H) 4.0 - 11.0 10e3/uL 05/11/2024 11:27 AM CDT LABORATORY Blood STRUCTURE OF RIGHT UPPER LIMB / Unknown Venipuncture / Unknown 05/11/2024 10:55 AM CDT 05/11/2024 11:24 AM CDT Ambar Joseph MD LAB - BLOOD ORDERABL ES LABORATORY [facility] [address], [address] [place] [address], [place] [phone] * CT Chest/Abdomen/Pelvis w Contrast (05/10/2024 4:42 [...] CDT EXAM: CT CHEST/ABDOMEN/PELVIS W CONTRAST LOCATION: [facility] DATE: 05/10/2024 INDICATION: Fever, paraplegia, abdominal pain [...] 05/10/2024 EXAM: CT CHEST/ABDOMEN/PELVIS W CONTRAST LOCATION: [facility] DATE: 05/10/2024 INDICATION: Fever, paraplegia, abdominal pain [...] called to [place] PA-C by Dr. MirzaRoberto Lock on 05/10/2024 5:18 PM CDT. [place] [...] mg/dL 05/10/2024 4:59 PM CDT LABORATORY Specific Maria Stein Urine 1.026 1.003 - 1.035 05/10/2024 4:59 [...] PA-C LAB - URINE ORDERABL ES LABORATORY [facility] [address], [address] [place] [address], [facility] [phone] * EKG 12-lead, tracing only (05/10/2024 3:43 PM CDT) Systolic Blood Pressure mmHg RADIOLOGY RESULTS Diastolic Blood Pressure mmHg RADIOLOGY RESULTS Ventricular Rate 103 BPM RAD IOLOGY RESULTS Atrial Rate 103 BPM RADIOLOG Y RESULTS OK Interval 144 ms RADIOLOG Y RESULTS QRS Duration 72 ms RADIOLO GY RESULTS QT 340 ms RADIOLOGY RESULTS QTc 445 ms RADIOLOGY RESULTS P Gentry 65 degrees RADIOLOGY RESULTS R AXIS 25 degrees RADIOLOGY RESULTS T Gentry 50 degrees RADIOLOGY RESULTS Interpretation ECG Sinus tachycardia Possible Left atrial enlargement Borderline ECG When compared with ECG of 12-Mar-2024 11:32, Right bundle branch block is no longer Present Confirmed by GENERATED REPORT, COMPUTER ([id number]), school photograph editor BHARATH LYNN ([id number]) on 05/10/2024 3:50:14 PM RADIOLOGY RESULTS 05/10/2024 [...] - MICRO GENERAL ORDERABLES [facility] LABORATORY [facility] Inf. Diseases Diag. Lab [address] [facility], [address] [place] [address], [facility] * Symptomatic Influenza A/B, RSV, [...] 2:46 PM CDT 05/10/2024 3:16 PM CDT [facility] LABORATORY - 05/10/2024 4:08 PM CDT Testing was performed using the Xpert Xpress CoV2/Flu/RSV Assay on the [employer] GeneXpert Instrument. This test should be ordered [...] management. This test was validated by the [facility] [employer] These laboratories are certified under the Clinical Laboratory Improvement Amendments of 1988 (CLIA-88) as qualified to perform high complexity laboratory testing. Chago Meadows PA-C LAB - MICRO GENERAL ORDERABLES LABORATORY [facility] [address], [address] [place] [address], [facility] [phone] * (ABNORMAL) CK total (05/10/2024 2:44 PM CDT) Pathologist [facility] CK 15(L) 26 - 192 U/L 05/10/2024 7:41 PM CDT LABORATORY Blood BLOOD SPECIMEN / Unknown Venipuncture / Unknown 05/10/2024 2:44 PM CDT 05/10/2024 3:17 PM CDT Ambar Joseph MD LAB - BLOOD ORDERABL ES LABORATORY [facility] Lab [address], [address] [place] [address], [facility] [phone] * (ABNORMAL) CRP inflammation (05/10/2024 2:44 PM CDT) [facility] CRP Inflammation 61.98(H) <5.00 mg/L 05/10/2024 7:41 PM CDT LABORATORY Blood BLOOD SPECIMEN / Unknown Venipuncture / Unknown 05/10/2024 2:44 PM CDT 05/10/2024 3:17 PM CDT Ambar Joseph MD LAB - BLOOD ORDERABL ES LABORATORY [facility] Lab [address], [address] [place] [address], [facility] [phone] * (ABNORMAL) Lipase (05/10/2024 2:44 PM CDT) Pathologist [facility] Lipase 11(L) 13 - 60 U/L 05/10/2024 3:41 PM CDT LABORATORY Blood BLOOD SPECIMEN / Unknown Venipuncture / Unknown 05/10/2024 2:44 PM CDT 05/10/2024 3:17 PM CDT Chago Meadows PA-C LAB - BLOOD ORDERABL ES LABORATORY [facility] [address], [address] [place] [address], [facility] [phone] * (ABNORMAL) CBC with platelets and differential (05/10/2024 2:44 PM CDT) WBC Count 15.6(H) 4.0 - 11.0 10e3/uL [...] PA-C LAB - BLOOD ORDERABL ES LABORATORY [facility] [address], [address] [place] [address], [facility] [phone] * (ABNORMAL) Comprehensive metabolic panel (05/10/2024 2:44 PM CDT) [facility] Sodium 140 135 - 145 mmol/L 05/10/2024 [...] PA-C LAB - BLOOD ORDERABL ES LABORATORY [facility] [address], [address] [place] [address], [facility] [phone] * (ABNORMAL) iStat Gases (lactate) venous, POCT [...] 05/10/2024 3:19 PM CDT [place] [facility] PO[facility] LABOR[facility] POC [facility] [address], [address] [place] [address], [facility] documented in this encounter [...] status Chronic osteomyelitis Chronic osteomyelitis, site unspecified Decubitus ulcer Pressure ulcer, unspecified site documented in this encounter Administered Medications Inactive Administered Medications - up to 3 most recent administrations Medication Order MAR Action Action Date Dose Rate Site acetaminophen (TYLENOL) tablet 650 mg 650 mg, Oral, EVERY 4 HOURS PRN, other, For optimal non-opioid multimodal pain management to improve pain control., Starting on Fri05/21/24 at 0000, May give first dose 4 hours after last scheduled dose of acetaminophen (TYLENOL). Maximum acetaminophen dose from all sources = 75 mg/kg/day not to exceed 4 grams/day. $Given 05/26/2024 8:15 AM CDT 650 mg benzocaine-menthol (CHLORASEPTIC) 6-10 MG lozenge 1 lozenge 1 lozenge, Buccal, EVERY 1 HOUR PRN, sore throat, Starting on Fri05/18/24 at 2038, For sore throat without fever. bisacodyl (DULCOLAX) suppository 10 mg 10 mg, Rectal, DAILY PRN, constipation, Starting on Fri05/12/24 at 1821, If the patient has multiple OK bowel stimulant agents ordered PRN, offer in the following order per policy. Move to the next available step if the earlier step is ineffective. Step 1 - bisacodyl; Step 2 - phosphate enema. Hold for loose stools. BUPivacaine 0.5 % - EPINEPHrine 1:200,000 injection PRN, Starting on Fri05/18/24 at 1843, Intra-procedure $Given 05/18/2024 6:43 PM CDT 39 mLs Operative Site/Surgical Site diclofenac (VOLTAREN) 1 % topical gel 4 [...] 6:57 PM CDT 4 g diphenhydrAMINE (BENADRYL) injection 12.5 mg 12.5 mg, Intravenous, EVERY 6 HOURS PRN, itching, Starting on Fri05/18/24 at 2038, Caution to be used when administering multiple BRICK POINTER depressing meds within a short time frame. enoxaparin ANTICOAGULANT (LOVENOX) injection 40 mg 40 [...] $Given 05/24/2024 4:34 PM CDT 40 mg furosemide (LASIX) tablet 40 mg 40 mg, Oral, DAILY, First dose on Fri05/10/24 at 2100 $Given 05/26/2024 8:59 AM CDT 40 mg $Given 05/25/2024 9:17 AM CDT 40 mg $Given 05/24/2024 9:59 AM CDT 40 mg HYDROmorphone (DILAUDID) tablet 2-4 mg 2-4 mg, Oral, EVERY 3 HOURS PRN, moderate pain, Starting on Fri05/21/24 at 1113, Moderate pain 2 mg ,, 4 mg severe pain Hold for RASS,-1 PO2<88 % SBP <100 RR<10 $Given 05/26/2024 2:26 PM CDT 4 mg $Given 05/26/2024 12:08 PM CDT 4 mg $Given 05/26/2024 8:15 AM CDT 4 mg lactated ringers infusion at 75 mL/hr, [...] $Given 05/15/2024 10:02 AM CDT 2 mg metoprolol tartrate (LOPRESSOR) tablet 25 mg 25 mg, Oral, 2 TIMES DAILY, First dose on Fri05/10/24 at 2100, Hold for SBP < 110 or HR < 60 $Given 05/26/2024 8:59 AM CDT 25 mg $Given 05/25/2024 8:16 PM CDT 25 mg $Given 05/25/2024 9:16 AM CDT 25 mg multivitamin w/minerals (THERA-VIT-M) tablet 1 tablet [...] doses. ondansetron (ZOFRAN ODT) ODT tab 4 mg [...] not resolved in 15 minutes, notify provider. senna-docusate (SENOKOT-S/PERICOLACE) 8.6-50 MG per tablet 2 [...] - magnesium citrate. Hold for loose stools. skin closure adhesive (DERMABOND) vial PRN, Starting on Fri05/18/24 at 1838, Intra-procedure $Given 05/18/2024 6:38 PM CDT 1 applicator Operative Site/Surgical Site sodium chloride (PF) 0.9% PF flush 10 [...] on Fri05/18/24 at 2038 sodium chloride 0.9% (bottle) irrigation PRN, Starting on Fri05/18/24 at 1758, Intra-procedure $Given 05/18/2024 5:58 PM CDT 1,000 mLs sodium hypochlorite (DAKINS half-strength) external solution Irrigation, [...] 12 years If the patient has multiple OK bowel stimulant agents ordered PRN, offer in [...] RN) 0918 ($Given - Provider: Nakul Moreno, MEME)1857 ($Given - Provider: Nakul Moreno RN)2250 ($Given - Provider: Mateo Henry RN) 1209 ($Given - Provider: Bertha Campbell RN)1600 (Canceled Entry [...] RN) 1426 ($Given - Provider: Bertha Campbell, RN) furosemide (LASIX) tablet 40 mg 40 mg, [...] 0859 ($Given - Provider: Bertha Campbell, MEME) Lidocaine (LIDOCARE) 4 % Patch 3 patch [...] 0859 ($Given - Provider: Bertha Campbell, MEME) naproxen (NAPROSYN) tablet 250 mg 250 mg, [...] 0859 ($Given - Provider: Bertha Campbell, MEME) predniSONE (DELTASONE) tablet 10 mg 10 mg, [...] RN)2101 ($Given - Provider: Maribel Clayton RN) 0917 ($Given - Provider: Nakul Moreno [...] Alaina Malave RN)1634 ($Given - Provider: Alaina Malave, RN) 0143 ($Given - Provider: Mateo Henry, MEME)0918 ($Given - Provider: Nakul Moreno RN)1906 ($Given [...] RN) 0058 (Not Given - Provider: Maribel Clayton RN - Reason: Patient/family refused)0918 ($Given - Provider: Nakul Moreno RN)2055 (Not Given - Provider: Mateo Henry RN - Reason: Patient/family refused) 1209 ($Given - Provider: Bertha Campbell, MEME) vitamin C (ASCORBIC ACID) tablet 250 mg [...] zinc sulfate. 0011 ($Given - Provider: Mateo Henry, MEME)2247 ($Given - Provider: Mateo Henry RN) Continuous [...] PRN, sore throat, Starting on Fri05/18/24 at 2037, For sore throat without fever. bisacodyl (DULCOLAX) suppository 10 mg 10 mg, Rectal, DAILY PRN, constipation, Starting on Fri05/12/24 at 1821, If the patient has multiple OK bowel stimulant agents ordered PRN, offer in the following order per policy. Move to the next available step if the earlier step is ineffective. Step 1 - bisacodyl; Step 2 - phosphate enema. Hold for loose stools. calcium carbonate (TUMS) chewable tablet 1,000 mg 1,000 mg, Oral, 4 TIMES DAILY PRN, heartburn, Starting on Fri05/10/24 at 2038 diphenhydrAMINE (BENADRYL) injection 12.5 mg 12.5 mg, Intravenous, EVERY 6 HOURS PRN, itching, Starting on Fri05/18/24 at 2037, Caution to be used when administering multiple BRICK POINTER depressing meds within a short time frame. [...] Comment: hip/down leg)1208 ($Given - Provider: Bertha Campbell RN)1426 ($Given - Provider: Bertha Campbell RN) lidocaine (XYLOCAINE) 2 % external gel Topical, [...] DAILY PRN, constipation, Starting on Fri05/12/24 at 1820, If the patient has multiple PO bowel [...] DAILY PRN, constipation, Starting on Fri05/12/24 at 1820, If the patient has multiple PO bowel [...] 12 years If the patient has multiple OK bowel stimulant agents ordered PRN, offer in [...] documented as of this encounter Care Teams Die Polisher Relationship Specialty Start Date End Date Flo Mckeon MD [address] [address] PCP - General Family Medicine 03/09/24 documented as of this encounter
--- OUTSIDE RECORDS SUMMARY | 2024-07-03 18:31 | XMS_ITS | Encounter Summary ---
Author Organization [facility] Address [address] [place] [address] Care Team Providers Care Fire Alarm Repairer Name Role Phone Elsewhere, Pcp Primary [...] past 12 months has [facility] [employer], gas, oil, or water [employer] threatened [...] Pending 10/18/2023 10/18/2023 10/18/2023 9 :11 PM EXPLOSIVE MAN COVID19 11/13/2023 11/13/2023 12/03/2023 5:55 AM EXPLOSIVE MAN documented as of this encounter Care Teams Fire Alarm Repairer Relationship Specialty Start Date End Date Elsewhere, Pcp PCP - General Internal Medicine 12/09/23 documented as of this encounter
--- OUTSIDE RECORDS SUMMARY | 2024-07-03 18:31 | XMS_ITS ---
Author Organization [facility] Address [address] [place] [address] Care Team Providers Care Seam Sewer Name Role Phone Unavailable Unavailable Unavailable Surgery Details Not on file Complications Check Surgery Details section. Procedure Estimated Blood Loss Check Surgery Details section. Procedure Findings Check Surgery Details section. Procedure Specimens Taken Check Surgery Details section.
--- OUTSIDE RECORDS SUMMARY | 2024-07-03 18:32 | XMS_ITS | Clinical Summary ---
Author Organization [employer] [facility] Address [place], [place] [address] Care Team Providers Care Electronic Security Specialist Name Role Phone Kallie Tamayo NP Unavailable [phone] Flo Mckeon MD Primary Care Provider [phone] [facility] [place] Unavailable [phone] Allergies Active Allergy Reactions Criticality Noted Date Comments Piperacillin Anaphylaxis,*Unknown High 09/18/2023 Per SNF Per patient, has tolerated Augmentin Tazobactam Anaphylaxis,*Unknown High 09/18/2023 Per SNF Vancomycin Anaphylaxis High 03/25/2024 Medications Medication Sig Dispensed Refills Start Date End Date Status gabapentin (NEURONTIN) 300 mg capsule Take 300 mg by mouth three times daily. Active metoprolol succinate (TOPROL XL) 100 mg Sustained-Release tablet Take 100 mg by mouth once [...] (Dulcolax, bisacodyl,) 10 mg suppository OK for client architect to administer 04/05/2024 Active oxyCODONE 7.5 mg TbOr Take 7.5 mg by mouth once daily. Active acetaminophen (TylenoL) 325 mg tablet Take 325 mg by mouth every 4 hours if needed. Max acetaminophen dose: 4000mg in 24 hrs. Active amoxicillin (AMOXIL) 875 mg tablet Take 875 mg by mouth two times daily. x7d 05/07/2024 Active metroNIDAZOLE (FLAGYL) 500 mg tablet Take 500 mg by mouth three times daily. x7d 05/08/2024 Active metoprolol tartrate (LOPRESSOR) 50 mg tablet Take 50 mg by mouth once daily. Active HYDROmorphone (DILAUDID) 2 mg tablet Take 2 mg by mouth every 4 hours if needed for Pain. Active buprenorphine 10 mcg/hr (BUTRANS) 10 mcg/hour transdermal patch Apply 1 Patch on dry, clean, hairless skin once weekly. 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 Paraplegia 01/18/2014 Rheumatoid arthritis 01/18/2014 Seasonal allergies 01/18/2014 Low back pain radiating to right leg 01/18/2014 Neurogenic bladder 01/18/2014 A-fib 01/18/2014 Constipation 01/18/2014 Scoliosis 01/18/2014 Encounters Date Type Department Care Team Description 07/03/2024 Home Care Visit [facility] [address] [place] [address] Elvi Leger, MEME CARE COORDINATION 07/03/2024 Nurse Triage [facility] [address] [place] [address] Flo Mckeon MD Home Care; Catheter Problem (NO flow since 0430) 07/03/2024 Home Care Visit [address] [address] Elvi Leger, MEME CARE COORDINATION 07/03/2024 Nurse Triage [address] [address] Flo Mckeon MD Ostomy 07/02/2024 1:00 PM CDT Home Care Visit [address] [address] Priscilla Richardson, MEME SN - HOME VISIT 07/02/2024 11:00 AM CDT Home Care Visit [address] [address] Haven Spears CANDY MAKER - HOME VISIT 06/30/2024 11:00 AM CDT Home Care Visit [address] [address] Nimco Palacios CANDY MAKER - HOME VISIT 06/28/2024 2:00 PM CDT Home Care Visit [address] [address] Rupinder Canchola RN SN - HOME VISIT 06/28/2024 11:00 AM CDT Home Care Visit [address] [address] Nimco Palacios CANDY MAKER - HOME VISIT 06/25/2024 2:15 PM CDT Home Care Visit [address] [address] Nimco Palacios CANDY MAKER - HOME VISIT 06/25/2024 1:00 PM CDT Home Care Visit [address] [address] Daina Keen, RN SN - HOME VISIT 06/23/2024 11:00 AM CDT Home Care Visit [address] [address] Nimco Palacios CANDY MAKER - HOME VISIT 06/22/2024 12:30 PM CDT Home Care Visit [address] [address] Negin Pizarro, MEME SN - LONG VISIT (>90 MINUTES) 06/22/2024 Home Care Visit [address] [address] Rupinder Canchola, RN CARE COORDINATION 06/22/2024 Home Care Visit [address] [address] Sol Christine RN SN - WOUND/OSTOMY CHART CONSULT 06/21/2024 12:30 PM CDT Home Care Visit [address] [address] Nimco Palacios CANDY MAKER - HOME VISIT 06/21/2024 Home Care Visit [address] [address] Fabi Billingsley, RN CARE COORDINATION 06/20/2024 12:00 PM CDT Home Care Visit [address] [address] Simona Guy, MEME SN - OASIS START OF CARE 06/20/2024 Plan of Care Documentation [address] [address] 06/18/2024 Transcribe Orders [address] [address] Roshan Myers PA-C 05/30/2024 Home Care Visit [address] [address] Rupinder Canchola, RN EPISODE DISCHARGE 05/11/2024 Home Care Visit [address] [address] Rupinder Canchola RN SN - OASIS TRANSFER 05/10/2024 11:30 AM CDT Home Care Visit [address] [address] Rupinder Canchola RN SN - HOME VISIT 05/07/2024 10:00 AM CDT Home Care Visit [address] [address] Nimco Palacios CANDY MAKER - HOME VISIT 05/05/2024 1:00 PM CDT Home Care Visit [address] [address] Rupinder Canchola RN SN - HOME VISIT 05/05/2024 11:00 AM CDT Home Care Visit [address] [address] Nimco Palacios CANDY MAKER - HOME VISIT 05/04/2024 1:00 PM CDT Home Care Visit [address] [address] Nimco Palacios CANDY MAKER - HOME VISIT 05/03/2024 1:00 PM CDT Home Care Visit [address] [address] Rupinder Canchola RN SN - HOME VISIT 04/30/2024 12:30 PM CDT Home Care Visit [address] [address] Erika Mcgill RN SN - HOME VISIT 04/29/2024 9:45 AM CDT Home Care Visit [address] [address] Nimco Palacios CANDY MAKER - HOME VISIT 04/28/2024 1:30 PM CDT Home Care Visit [address] [address] Nimco Palacios CANDY MAKER - HOME VISIT 04/26/2024 1:00 PM CDT Home Care Visit [address] [address] Rupinder Canchola RN SN - HOME VISIT 04/26/2024 10:00 AM CDT Home Care Visit [address] [address] Nimco Palacios CANDY MAKER - HOME VISIT 04/23/2024 12:30 PM CDT Home Care Visit [address] [address] Nimco Palacios CANDY MAKER - HOME VISIT 04/23/2024 10:00 AM CDT Home Care Visit [address] [address] Vickie Pabon LPN DISTRIBUTION CENTER ASSISTANT - HOME VISIT 04/22/2024 Orders Only [facility] [address] [place] [address] Lisa Skinner MD <No scans attached> 04/21/2024 11:30 AM CDT Home Care Visit [address] [address] Rupinder Canchola, RN SN - HOME VISIT 04/21/2024 9:00 AM CDT Home Care Visit [address] [address] Nimco Palacios CANDY MAKER - HOME VISIT 04/21/2024 Home Care Visit [address] [address] Sol Christine RN CARE COORDINATION 04/19/2024 3:00 PM CDT Home Care Visit [address] [address] Rupinder Canchola, RN SN - HOME VISIT 04/19/2024 11:00 AM CDT Home Care Visit [address] [address] Nimco Palacios CANDY MAKER - HOME VISIT 04/16/2024 1:30 PM CDT Home Care Visit [address] [address] Rupinder Canchola, RN SN - HOME VISIT 04/14/2024 2:00 PM CDT Home Care Visit [address] [address] Rupinder Canchola RN SN - HOME VISIT 04/14/2024 9:00 AM CDT Home Care Visit [address] [address] Nimco Palacios CANDY MAKER - HOME VISIT 04/12/2024 2:30 PM CDT Home Care Visit [address] [address] Nimco Palacios CANDY MAKER - HOME VISIT 04/12/2024 1:00 PM CDT Home Care Visit [address] [address] Rupinder Canchola, RN SN - HOME VISIT 04/09/2024 12:15 PM CDT Home Care Visit [address] [address] Nimco Palacios CANDY MAKER - HOME VISIT 04/08/2024 9:00 AM CDT Home Care Visit [address] [address] Nimco Palacios CANDY MAKER - HOME VISIT 04/07/2024 12:30 PM CDT Home Care Visit [address] [address] Rupinder Canchola RN SN - HOME VISIT 04/06/2024 2:00 PM CDT Patient Outreach [facility] Care Management - Advanced Care Team [address] [place] [address] Sol Abbott truck loader and unloader Management (transition) 04/05/2024 2:00 PM CDT Home Care Visit [address] [address] Rupinder Canchola, RN SN - HOME VISIT 04/05/2024 12:30 PM CDT Pharmacist Medication Management [address] [phone] Osmani Espinoza, CelestinoD Pharmacist Medication Management (Initial Comprehensive Medication Review, phone, ccm patient) 04/05/2024 11:30 AM CDT Office Visit [facility] [address] [place] [address] Padmini Walker NP Home Hospital Care (Day 6/) 04/05/2024 1:00 AM CDT Home Care Visit [address] [address] Nimco Palacios CANDY MAKER - HOME VISIT 04/05/2024 Patient Outreach [facility] [address] [place] [address] Bernadette Encarnacion RN Home Hospital Care (Biometric Monitoring D/C) 04/05/2024 Travel 04/04/2024 9:30 AM CDT Office Visit [facility] [address] [place] [address] Padmini Walker NP Home Hospital Care (Day /) 04/04/2024 Patient Outreach [facility] [address] [place] [address] Sandy Cuellar RN Home Hospital Care (biometrics monitoring- missing afternoon vitals ) 04/03/2024 4:45 PM CDT Home Care Visit [address] [address] Nimco Lal RN SN - PRN LONG VISIT >90 MINS 04/03/2024 9:00 AM CDT Office Visit [facility] [address] [place] [address] Padmini Walker NP Home Hospital Care (Day 4) 04/03/2024 Orders Only [facility] [address] [place] [address] Padmini Walker NP Lab (1. CBC, procalcitonin, CRP (dx: leuko... 04/02/2024 1:30 PM CDT Home Care Visit [address] [address] Rupinder Canchola RN SN - HOME VISIT 04/02/2024 11:00 AM CDT Office Visit [facility] [address] [place] [address] Lisa Skinner MD Home Hospital Care (Day 3 ) 04/02/2024 2:25 AM CDT Home Care Visit [facility] [address] [place] [address] Haily Donohue RN SN - WOUND/OSTOMY CHART CONSULT 04/02/2024 Orders Only [facility] [address] [place] [address] Padmini Walker, FROILAN Lab 04/02/2024 Orders Only [facility] [address] [place] [address] Padmini Walker NP Lab 04/02/2024 Home Care Visit [facility] [address] [place] [address] Maddi Ann RN CARE COORDINATION from Last 3 Months Social History Tobacco [...] Sign Reading Time Taken Comments Blood Pressure 140/60 06/28/2024 2:51 PM CDT Pulse 76 06/28/2024 2:51 PM CDT Temperature 36.7 ??C (98.1 ??F) 06/28/2024 2 :51 PM CDT Respiratory Rate 20 06/28/2024 2:51 PM CDT Oxygen Saturation 92% 06/28/2024 2:5 1 PM CDT Inhaled Oxygen Concentration - - Weight 64.4 kg (141 lb 15.6 oz) 03/30/2024 6:00 AM CDT Height 152.4 cm (5') 03/29/2024 8:00 PM CDT FV chart 03/06/2024 Body Mass Index 27.73 03/29/2024 8:00 PM CDT Plan of Treatment Upcoming Encounters Date Type Department Care Team (Late st Contact Info) Description 07/05/2024 4:00 AM CDT Home Care Visit [address] [address] Rupinder Canchola RN [address] [place] [address] 07/05/2024 12:30 PM CDT Home Care Visit [address] [address] Nimco Palacios 07/07/2024 11:00 AM CDT Home Care Visit [address] [address] Nimco Palacios 07/09/2024 1:00 AM CDT Home Care Visit [address] [address] Nimco Palacios 07/09/2024 4:00 AM CDT Home Care Visit [address] [address] Rupinder Canchola RN [address] [place] [address] 07/12/2024 1:00 AM CDT Home Care Visit [address] [address] Nimco Palacios 07/12/2024 4:00 AM CDT Home Care Visit [address] [address] Rupinder Canchola RN [address] [place] [address] 07/14/2024 1:00 AM CDT Home Care Visit [facility] [address] [place] [address] Nimco Palacios 07/16/2024 1:00 AM CDT Home Care Visit [facility] [address] [place] [address] Nimco Palacios 07/16/2024 4:00 AM CDT Home Care Visit [facility] [address] [place] [address] Rupinder Canchola RN [address] [place] [address] 07/19/2024 1:00 AM CDT Home Care Visit [facility] [address] [place] [address] Nimco Palacios 07/19/2024 4:00 AM CDT Home Care Visit [facility] [address] [place] [address] Rupinder Canchola RN [address] [place] [address] 07/21/2024 1:00 AM CDT Home Care Visit [facility] [address] [place] [address] Nimco Palacios 07/23/2024 1:00 AM CDT Home Care Visit [facility] [address] [place] [address] Nimco Palacios 07/23/2024 4:00 AM CDT Home Care Visit [facility] [address] [place] [address] Rupinder Canchola RN [address] [place] [address] 07/26/2024 1:00 AM CDT Home Care Visit [facility] [address] [place] [address] Nimco Palacios 07/26/2024 4:00 AM CDT Home Care Visit [facility] [address] [place] [address] Rupinder Canchola RN [address] [place] [address] 07/28/2024 1:00 AM CDT Home Care Visit [facility] [address] [place] [address] Nicmo Palacios 07/30/2024 1:00 AM CDT Home Care Visit [facility] [address] [place] [address] Nimco Palacios 07/30/2024 4:00 AM CDT Home Care Visit [facility] [address] [place] [address] Rupinder Canchola RN [address] [place] [address] 08/02/2024 1:00 AM CDT Home Care Visit [facility] [address] [place] [address] Nimco Palacios 08/02/2024 4:00 AM CDT Home Care Visit [facility] [address] [place] [address] Rupinder Canchola RN [address] [place] [address] 08/04/2024 1:00 AM CDT Home Care Visit [facility] [address] [place] [address] Nimco Palacios 08/06/2024 1:00 AM CDT Home Care Visit [facility] [address] [place] [address] Nimco Palacios 08/06/2024 4:00 AM CDT Home Care Visit [facility] [address] [place] [address] Rupinder Canchola RN [address] [place] [address] 08/09/2024 1:00 AM CDT Home Care Visit [address] [address] Nimco Palacios 08/09/2024 4:00 AM CDT Home Care Visit [address] [address] Rupinder Canchola RN [address] [place] [address] 08/11/2024 1:00 AM CDT Home Care Visit [address] [address] Nimco Palacios 08/13/2024 1:00 AM CDT Home Care Visit [facility] [address] [address] Nimco Palacios 08/13/2024 4:00 AM CDT Home Care Visit [facility] [address] [place] [address] Rupinder Canchola RN [address] [place] [address] 08/17/2024 4:00 AM BUSINESS SERVICES SALES AGENT Home Care Visit [address] [address] Rupinder Canchola RN [address], [place] [phone] Health Maintenance Due Date Last Done Comments Pneumococcal series for age 65+ (1 of 2 - PCV) 953 Tdap 1957 Depression screening for age 12+ 1958 BMI (ht and wt on same day) for age 18+ 1964 Hepatitis C screening for age 18-79 1964 Tetanus booster 1966 Zoster (shingles) series for age 50+ (1 of 2) 12/30/18 97 RSV vaccine for adults or pr egnancy (1 - 1-dose 60+ series) 2006 DEXA/DXA scan for age 65+ 12/31/2011 Medicare Wellness for age 65+ 12/31/2011 COVID-19 vaccine series (2022- season) Influenza for age 65+ 06/13/2024 Procedures Procedure [...] PM CDT Sepsis secondary to UTI (HC) from Last 3 Months Results * PROCALCITONIN (04/03/2024 5:51 PM CDT) PROCALCITONIN 0.08 ng/ml 04/03/2024 8:20 PM CDT [facility] Blood BLOOD SPECIMEN / Unknown Client Collect / Unknown 04/03/2024 5:51 PM CDT 04/03/2024 7:44 PM CDT [facility] - 04/03/2024 8:20 PM CDT [...] < 2 ng/mL are obtained. Padmini Walker TEXTILE KNITTER SEND OUTS [facility] SENDOUT INTERNAL ZIP [phone] [place] [address] * (ABNORMAL) CBC W PLT NO DIFF (04/03/2024 5:51 PM CDT) WHITE BLOOD COUNT 16.0(H) 4.5 - 11.0 thou/cu mm 04/03/2024 7:53 PM CDT [facility] RED BLOOD COUNT 4.05 4.00 - 5.20 mil/cu mm 04/03/2024 7:53 PM CDT [facility] HEMOGLOBIN 10.6(L) 12.0 - 16.0 g/dL 04/03/2024 7:53 PM CDT [facility] HEMATOCRIT 35.0 33.0 - 51.0 % 04/03/2024 7:53 PM CDT [facility] MCV 86 80 - 100 fL 04/03/2024 7:53 PM CDT [facility] MCH 26.2 26.0 - 34.0 pg 04/03/2024 7:53 PM CDT [facility] MCHC 30.3(L) 32.0 - 36.0 g/dL 04/03/2024 7:53 PM CDT [facility] RDW 17.5(H) 11.5 - 15.5 % 04/03/2024 7:53 PM CDT [facility] PLATELET COUNT 381 140 - 440 thou/cu mm 04/03/2024 7:53 PM CDT [facility] MPV 10.8 6.5 - 11.0 fL 04/03/2024 7:53 PM CDT [facility] NRBC 0.0 % 04/03/2024 7:53 PM CDT [facility] ABS NRBC 0.0 thou /cu mm 04/03/2024 7:53 PM CDT [facility] Blood BLOOD SPECIMEN / Unknown Client Collect / Unknown 04/03/2024 5:51 PM CDT 04/03/2024 7:44 PM CDT Padmini Walker NP HEMATOLOGY [facility] SENDOUT INTERNAL ZIP [phone] [place] [address] * (ABNORMAL) C-REACTIVE PROTEIN (04/03/2024 5:51 PM CDT) C-REACTIVE PROTEIN 2.6(H) <0.5 mg/dL 04/03/2024 8:18 PM CDT [facility] Blood BLOOD SPECIMEN / Unknown Client Collect / Unknown 04/03/2024 5:51 PM CDT 04/03/2024 7:44 PM CDT Padmini Walker NP CHEMISTRY Performing Organization Address [facility]/ZIP Co de Phone Number [facility] SENDOUT INTERNAL ZIP [phone] [place] [address] * (ABNORMAL) WHITE BLOOD COUNT (04/02/2024 5:47 PM CDT) WHITE BLOOD COUNT 20.9(H) 4.5 - 11.0 thou/cu mm 04/02/2024 5:58 PM CDT [facility] NRBC 0.0 % 04/02/2024 5:58 PM CDT [facility] ABS NRBC 0.0 thou /cu mm 04/02/2024 5:58 PM CDT [facility] Blood BLOOD SPECIMEN / Unknown Non-Lab Venipuncture / Unknown 04/02/2024 5:47 PM CDT 04/02/2024 5:48 PM CDT Padmini Walker NP HEMATOLOGY Performing Organization Address City/[facility]/ZIP Co de Phone Number [facility] [place] [address], * (ABNORMAL) HEMOGLOBIN (04/02/2024 5:47 PM CDT) HEMOGLOBIN 11.7(L) 12.0 - 16.0 g/dL 04/02/2024 5:58 PM CDT [facility] MCV 90 80 - 100 fL 04/02/2024 5:58 PM CDT [facility] Blood BLOOD SPECIMEN / Unknown Non-Lab Venipuncture / Unknown 04/02/2024 5:47 PM CDT 04/02/2024 5:48 PM CDT Padmini Walker NP HEMATOLOGY [facility] [address] [place] [address], * (ABNORMAL) BASIC METABOLIC PANEL (04/02/2024 4:00 PM CDT) SODIUM 145 136 - 145 mmol/L 04/02/2024 6:18 PM CDT [facility] POTASSIUM 4.4 3.5 - 5.1 mmol/L 04/02/2024 6:18 PM CDT [facility] CHLORIDE 97(L) 98 - 107 mmol/L 04/02/2024 6:18 PM CDT [facility] CO2,TOTAL 36(H) 22 - 29 mmol/L 04/02/2024 6:18 PM CDT [facility] ANION GAP 12 5 - 18 04/02/2024 6:18 PM CDT [facility] GLUCOSE 114(H) 70 - 99 mg/dL 04/02/2024 6:18 PM CDT [facility] CALCIUM 9.2 8.8 - 10.2 mg/dL 04/02/2024 6:18 PM CDT [facility] BUN 17 8 - 23 mg/dL 04/02/2024 6:18 PM CDT [facility] CREATININE 0.35(L) 0.50 - 0.90 mg/dL 04/02/2024 6:18 PM CDT [facility] BUN/CREAT RATIO 49(H) 10 - 20 6:18 PM CDT [facility] eGFR >90 >90 mL/min/1.7 3m2 04/02/2024 6:18 PM CDT [facility] Comment:As of 2021, eG FR is [...] 5:48 PM CDT Padmini Walker NP CHEMISTRY [facility] [place] [address], from Last 3 Months Additional Health Concerns Infection Onset Date Last Indicated MRSA Clearance Comment:Hx MRSA 12/02/13 @ [place] 03/25/2024 03/25/2024 Advance Directives * DNR (Latest Code Status on File) Date Activated Date Inactivated Comments 03/24/2024 5:28 PM 03/31/2024 4:05 PM Question Answer Comments Code Status Discussion: Reviewed Preferences Care Teams Electronic Security Specialist Relationship Specialty Start Date End Date Flo Mckeon MD [address] [place] [address] PCP - General Family Practice 10/04/21 Kallie Tamayo NP [address] [facility] [address] [place], [place] [phone] Family Practice 01/17/14 [facility] [address] [place], [place] [phone] 06/18/24
[2024-07-03] MEDS: cefuroxime axetiL 500 MG TABLET PO (19:15)
== END 2024-07-03 19:26 | disposition home or self-care (01) ==
LOC: ED 18:27
PROVIDERS: Emergency Provider Family Medicine; PCP Family Medicine
DX: T83.098A Other mechanical complication of other urinary catheter, initial encounter (principal)
CPT/HCPCS: 51702; 81001; 87086; 87186; 99283; A9270

== ENCOUNTER 2024-07-03 19:20 | Outpatient (CLI) | payer MEDICARE, SELFPAY ==
--- OUTSIDE RECORDS SUMMARY | 2024-07-20 11:34 | XMS_ITS | Clinical Summary ---
Author Organization [facility] Address [address] [place] [address] Phone Care Team Providers Care Hourly Associate Name Role Phone Flo Mckeon MD Primary Care Provider [phone] Medications Medication Sig Dispensed Refills Start Date [...] of Treatment Not on file Care Teams Hourly Associate Relationship Specialty Start Date End Date Flo Mckeon MD [address] [place] [address] PCP - General 05/11/24
--- OUTSIDE RECORDS SUMMARY | 2024-07-20 11:35 | XMS_ITS | Referral Summary ---
Author Organization [place] Address [facility]0 [facility] [place] [address] Care Team Providers Care Device Sales Consultant Name Role Phone Flo Mckeon MD Primary Care Provider [phone] Encounters Date Type Department Care Team Description 05/10/2024 2:20 PM CDT - 05/26/2024 3:13 PM CDT Hospital Encounter [facility] General Surgery [address] [place] [address] Nemesio Davila MD Powell, MD Jake Parra Srivani, MD Chronic osteomyelitis (H) (Primary Dx); Acute cystitis with hematuria; Osteomyelitis of coccyx (H); Septic shock (H); Drug-induced constipation; Loose stools; Chronic pain syndrome; Chronic atrial fibrillation (H); Pressure injury of skin, unspecified injury stage, unspecified location [L89.90]; Attention to colostomy (H) [Z43.3] Discharge Disposition: [facility] 05/21/2024 Telephone [facility] [address] [address] Leela Degroot APRN CNP Prior Auth - Medication (Pregabalin - Denied) 05/21/2024 Telephone [facility] [address] [phone] Leela Degroot, AMIRAH TALENT DEVELOPMENT MANAGER Prior Auth - Medication (Buprenorphine patch - Approved) 05/18/2024 Medical Correspondence [facility] Info Mgmt [facility] [address] [place] [phone] Scan, Non-Provider 05/18/2024 5:30 PM CDT [facility] [address] [place] [address] Pool Palacios DO Van Kirk, Patrick, MD 05/18/2024 5:29 PM CDT - 05/18/2024 8:[address] [facility] [address] [place] [phone] Peter Krishnamurthy MD Laparoscopic diverting colostomy 05/10/2024 [...] (LOPRESSOR) 25 MG tabletIndications: Chronic atrial fibrillation (H) Take 1 tablet (25 mg) by mouth [...] of2 resultswithin the time period is included. [facility] Urine Yellow Colorless, Straw, Light Yellow, Yellow 06/07/2024 9:37 PM CDT [facility] Appearance Urine Slightly Cloudy(A) Clear 06/07/2024 9:37 PM CDT [facility] Glucose Urine Negative Negative mg/dL 06/07/2024 9:37 PM CDT [facility] Bilirubin Urine Negative Negative 9:37 PM CDT [facility] Ketones Urine Negative Negative mg/dL 06/07/2024 9:37 PM CDT [facility] Specific [place] Urine 1.011 1.003 - 1.035 06/07/2024 9:37 [...] LAB - U RINE ORDERABLES [facility] Core Lab [address] [facility], [address] [place] [address] * (ABNORMAL) Urine Culture (06/07/2024 7:01 [...] coli Cefazolin DAWSON <=4 ug/mL: Susceptible Comment:Cefazolin LA C breakpoints are for the treatment of [...] M ICRO GENERAL ORDERABLES U[facility] IDD LABORATORY [facility] Inf. Diseases Diag. Lab [address] [facility], [address] [place] [address], [facility] * Trip Charge - LAB ONLY (06/03/2024 12:01 PM CDT) Only the most recent of2 resultswithin the time period is included. Other TOPOGRAPHY UNKNOWN / Unknown Billing only / Unknown 06/03/2024 12:01 PM CDT 06/03/2024 2:00 PM CDT Bharath Kelly MD LAB CHARGE PERFORMAB LES [facility] [address] [place] [address], [facility] * (ABNORMAL) Basic Metabolic Panel No Glucose [...] - BLOOD ORDERABL ES Performing Organization Address [facility]/ZIP Co de Phone Number U LABORATORY [facility] Core Lab [address] [facility], [address] * (ABNORMAL) Glucose (OUTREACH) (06/03/2024 12:01 PM CDT) Only the most recent of2 resultswithin the time period is included. Glucose 227(H) 70 - 99 mg/dL 06/03/2024 4:09 PM CDT [facility] Blood STRUCTURE OF LEFT UPPER LIMB / Unknown Venipuncture / Unknown 06/03/2024 12:01 PM CDT 06/03/2024 2:00 PM CDT Bharath Kelly MD LAB - BLOOD ORDERABL ES Performing Organization Address [facility] de Phone Number [facility] LAB[facility] [place] Core Lab [address] [facility], [address] [place] [address] * (ABNORMAL) CBC with platelets and differential [...] LAB - BLOOD ORDERABL ES [facility] LAB[facility]ORY [facility] [place] Core Lab [address] [facility], [address] [place] [phone] * (ABNORMAL) CBC with platelets (06/02/2024 [...] LAB - B LOOD ORDERABLES [facility] [place] Core Lab [address] [facility], [address] [place] [address] * Extra Green Top Tube (LAB USE ONLY) (05/24/2024 7:31 AM CDT) Hold Specimen 0 05/24/2024 8:21 AM CDT LABORATORY Blood STRUCTURE OF RIGHT UPPER LIMB / Unknown Venipuncture / Unknown 05/24/2024 7:31 AM CDT 05/24/2024 8:09 AM CDT Ambar Joseph MD LAB - BLOOD ORDERABL ES LABORATORY [facility] Lab [address] 1[address] floor, [address] [place] [address], [place] [phone] * Platelet count (05/24/2024 7:31 AM CDT) Only the most recent of3 resultswithin the time period is included. Pathologist [facility] Platelet Count 286 150 - 450 10e3/uL 05/24/2024 8:13 AM CDT LABORATORY Blood STRUCTURE OF RIGHT UPPER LIMB / Unknown Venipuncture / Unknown 05/24/2024 7:31 AM CDT 05/24/2024 8:10 AM CDT Peter Krishnamurthy MD LAB - BLOOD ORDERABL ES Performing Organization Address City/[facility]/ZIP Co de Phone Number [facility] Lab [address], [address] [place] [address], [facility] [phone] * (ABNORMAL) Basic metabolic panel (05/21/2024 7:05 [...] 8.8 - 10.4 mg/dL 05/21/2024 7:44 AM [facility] Comment:Reference intervals for this test were [...] PA-C LAB - BLOOD ORDERA BLES LABORATORY [facility] Acute Care Lab [address], [address] [place] [address], [facility] [phone] * (ABNORMAL) Glucose by meter (05/19/2024 10:21 PM CDT) [facility] GLUCOSE BY METER POCT 157(H) 70 - 99 mg/dL 05/19/2024 10:28 PM CDT LABORATORY POC Blood, Capillary BLOOD SPECIMEN / Unknown 05/19/2024 10:21 PM CDT 05/19/2024 10:28 PM CDT Ambar Joseph MD LAB - BEAKER POCT Performing Organization Address City/[facility]/ZIP Co de Phone Number LABORATORY POC [facility] Lab [address], [address] [place] [address], [facility] * (ABNORMAL) Phosphorus (05/19/2024 6:06 AM CDT) Phosphorus 4.8(H) 2.5 - 4.5 mg/dL 05/19/2024 7:15 AM CDT LABORATORY Blood STRUCTURE OF RIGHT UPPER LIMB / Unknown Venipuncture / Unknown 05/19/2024 6:06 AM CDT 05/19/2024 6:34 AM CDT Peter Krishnamurthy MD LAB - BLOOD ORDERABL ES Performing Organization Address City/[facility]/ZIP Co de Phone Number LABORATORY [facility] Lab [address], [address] [address], [facility] [phone] * Magnesium (05/19/2024 6:06 AM CDT) Magnesium 1.9 1.7 - 2.3 mg/dL 05/19/2024 7:15 AM CDT LABORATORY Blood STRUCTURE OF RIGHT UPPER LIMB / Unknown Venipuncture / Unknown 05/19/2024 6:06 AM CDT 05/19/2024 6:34 AM CDT Peter Krishnamurthy MD LAB - BLOOD ORDERABL ES LABORATORY [facility] Lab [address], [address] [place] [address], [facility] [phone] * ANE AIRWAY ETT PERFORMABLE (05/18/2024 5:40 PM CDT) Narrative Meri Song - 05/18/2024 5:40 PM CDT Meri Song ? 05/18/2024 ??6:14 PM Airway ? Patient location during procedure: OR ? Procedure Start/Stop Times: 05/18/2024 5:40 PM Staff - ? Anesthesiologist: ??Pool Palacios, DO ? SACK KEEPER: Mallika Foster APRN CRNA ? Other Anesthesia Staff: Meri Song ? Performed By: SRNA and SACK KEEPER Consent for Airway ? Urgency: elective Indications [...] Time: 05/18/2024 5:40 PM Pool Palacios DO [facility] * Adult Type and Screen (05/18/2024 11:18 AM CDT) ABO/RH(D) A POS 05/18/2024 7:11 AM CDT BLOOD BANK Antibody Screen Negative Negative 05/18/2024 7:11 AM CDT BLOOD BANK SPECIMEN EXPIRATION DATE [id number] 05/18/2024 7:11 AM CDT BLOOD BANK Blood BLOOD SPECIMEN / Unknown Venipuncture / Unknown 05/18/2024 11:18 AM CDT 05/18/2024 11:35 AM CDT Janak Robledo PA-C LAB - BLOOD BANK T EST ORDER Performing Organization Address [facility] Co de Phone Number BLOOD BANK [address] [place] [address], [facility] * (ABNORMAL) Hemoglobin (05/18/2024 11:18 AM CDT) Hemoglobin 10.2(L) 11.7 - 15.7 g/dL 05/18/2024 11:39 AM CDT LABORATORY Blood BLOOD SPECIMEN / Unknown Venipuncture / Unknown 05/18/2024 11:18 AM CDT 05/18/2024 11:35 AM CDT Janak Robledo PA-C LAB - BLOOD ORDERA BLES Performing Organization Address [facility] Co de Phone Number LABORATORY [facility] Lab [address], [address] [place] [address], [facility] [phone] * (ABNORMAL) CK total (05/18/2024 11:18 AM CDT) Only the most recent of2 resultswithin the time period is included. CK 12(L) 26 - 192 U/L 05/18/2024 12:01 PM CDT LABORATORY Blood BLOOD SPECIMEN / Unknown Venipuncture / Unknown 05/18/2024 11:18 AM CDT 05/18/2024 11:35 AM CDT Peter Krishnamurthy MD LAB - BLOOD ORDERABL ES Performing Organization Address City/[facility] Co de Phone Number LABORATORY [facility] Lab [address], [address] [place] [address], [facility] [phone] * Single Lumen Midline Placement (05/18/2024 9:15 AM CDT) Narrative Dede Downing RN - 05/18/2024 9:15 AM CDT Dede Downing RN ? 05/18/2024 ??9:19 AM [facility] Single Lumen Midline Placement Date/Time: 05/18/2024 [...] procedure a time out was called ?? [place] Protocol: the Joint Commission [place] Protocol was followed ?? Preparation: Patient was [...] size: 4 Fr Brand: Bard Lot number: [id number] Placement method: MST and ultrasound Number of [...] LABORATORY - 05/14/2024 7:39 PM CDT The [employer] Xpert C. difficile Assay, performed on the [employer]?? Instrument Systems, is a qualitative in vitro [...] MICRO GENERA L ORDERABLES UU IDD LABORATORY [facility] Inf. Diseases Diag. Lab [address] [facility], [address] [place] [address] * (ABNORMAL) WBC count (05/11/2024 10:55 AM CDT) WBC Count 13.4(H) 4.0 - 11.0 10e3/uL 05/11/2024 11:27 AM CDT LABORATORY Blood STRUCTURE OF RIGHT UPPER LIMB / Unknown Venipuncture / Unknown 05/11/2024 10:55 AM CDT 05/11/2024 11:24 AM CDT Ambar Joseph MD LAB - BLOOD ORDERABL ES LABORATORY [facility] Acute Care Lab [address], [address] [place] [address], [facility] [phone] * CT Chest/Abdomen/Pelvis w Contrast (05/10/2024 4:42 [...] CDT EXAM: CT CHEST/ABDOMEN/PELVIS W CONTRAST LOCATION: [facility] DATE: 05/10/2024 INDICATION: Fever, paraplegia, [...] 05/10/2024 EXAM: CT CHEST/ABDOMEN/PELVIS W CONTRAST LOCATION: [facility] DATE: 05/10/2024 INDICATION: Fever, paraplegia, [...] tracing only (05/10/2024 3:43 PM CDT) Pathologist [facility] Systolic Blood Pressure mmHg RADIOLOGY RESULTS Diastolic Blood Pressure mmHg RADIOLOGY RESULTS Ventricular Rate 103 BPM RAD IOLOGY RESULTS Atrial Rate 103 BPM RADIOLOG Y RESULTS UT Interval 144 ms RADIOLOG Y RESULTS QRS Duration 72 ms RADIOLO GY RESULTS QT 340 ms RADIOLOGY RESULTS QTc 445 ms RADIOLOGY RESULTS P [place] 65 degrees RADIOLOGY RESULTS R AXIS 25 degrees RADIOLOGY RESULTS T [place] 50 degrees RADIOLOGY RESULTS Interpretation ECG Sinus tachycardia Possible Left atrial enlargement Borderline ECG When compared with ECG of 12-Mar-2024 11:32, Right bundle branch block is no longer Present Confirmed by GENERATED REPORT, COMPUTER ([id number]), website/blog editor BHARATH LYNN ([id number]) on 05/10/2024 3:50:14 PM RADIOLOGY RESULTS 05/10/2024 3:43 PM CDT 05/10/2024 3:50 PM CDT Chago Meadows PA-C ECG ORDERABLES RADIOLOGY RESULTS * Blood Culture Peripheral Blood (05/10/2024 2:48 PM CDT) [facility] Culture No Growth 05/15/2024 3:31 PM CDT UU IDD LABORATORY Blood BLOOD SPECIMEN / Unknown Venipuncture / Unknown 05/10/2024 2:48 PM CDT 05/10/2024 3:17 PM CDT Chago Meadows PA-C LAB - MICRO GENERAL ORDERABLES UU IDD LABORATORY [facility] Inf. Diseases Diag. Lab [address] [facility], [address] [place] [phone] * Symptomatic Influenza A/B, RSV, & SARS-CoV2 PCR (COVID-19) Nasopharyngeal (05/10/2024 2:46 PM CDT) [facility] Influenza A PCR Negative Negative 05/10/2024 [...] the Xpert Xpress CoV2/Flu/RSV Assay on the [employer]cretsXpert Instrument. This test should be ordered for [...] test was validated by the [facility]. These laboratories are certified under the Clinical Laboratory Improvement Amendments of 1988 (CLIA-88) as qualified to perform high complexity laboratory testing. Chago Meadows PA-C LAB - MICRO GENERAL ORDERABLES LABORATORY [facility] Acute Care Lab [address], [address] [place] [address], [facility] [phone] * (ABNORMAL) Lipase (05/10/2024 2:44 PM CDT) Lipase 11(L) 13 - 60 U/L 05/10/2024 3:41 PM CDT LABORATORY Blood BLOOD SPECIMEN / Unknown Venipuncture / Unknown 05/10/2024 2:44 PM CDT 05/10/2024 3:17 PM CDT Chago Meadows PA-C LAB - BLOOD ORDERABL ES LABORATORY [facility] [address], [address] [place] [address], [facility] [phone] * (ABNORMAL) CRP inflammation (05/10/2024 2:44 PM CDT) CRP Inflammation 61.98(H) <5.00 mg/L 05/10/2024 7:41 PM CDT LABORATORY Blood BLOOD SPECIMEN / Unknown Venipuncture / Unknown 05/10/2024 2:44 PM CDT 05/10/2024 3:17 PM CDT Ambar Joseph MD LAB - BLOOD ORDERABL ES LABORATORY [facility] [address], [address] [place] [address], [facility] [phone] * (ABNORMAL) Comprehensive metabolic panel (05/10/2024 2:44 [...] PA-C LAB - BLOOD ORDERABL ES LABORATORY [facility] Acute Care Lab [address], [address] [place] [address], [facility] [phone] * (ABNORMAL) iStat Gases (lactate) venous, POCT [...] CDT 05/10/2024 3:19 PM CDT Nemesio [place] [facility] POCT LABORATORY POC [facility] Acute Care Lab 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
--- OUTSIDE RECORDS SUMMARY | 2024-07-20 11:35 | XMS_ITS | Clinical Summary ---
Author Organization [place] Address [facility] [place] [address] Care Team Providers Care Hair Cutter Name Role Phone Flo Mckeon MD Primary Care Provider [phone] Allergies Active Allergy Reactions Criticality Noted Date [...] Type Department Care Team Description 05/21/2024 Telephone [facility] [address] [facility] [address] [place] [address] Leela Degroot APRN ROBOTIC WELDER Prior Auth - Medication (Pregabalin - Denied) 05/21/2024 Telephone [facility] [address] [facility] [address] [place] [address] Leela Degroot APRN ROBOTIC WELDER Prior Auth - Medication (Buprenorphine patch - Approved) 05/18/2024 5:30 PM CDT Anesthesia Event [facility] [address], [address] [phone] Pool Palacios DO Van Kirk, Patrick, MD 05/18/2024 5:29 PM CDT - 05/18/2024 8:14 PM CDT Surgery [facility] [address], [address] [phone] Peter Krishnamurthy MD Laparoscopic diverting colostomy 05/18/2024 Medical Correspondence [facility] [address] [place] [phone] Scan, Non-Provider 05/10/2024 2:20 PM CDT - 05/26/2024 3:13 PM CDT Hospital Encounter [facility] General Surgery [address] [place] [phone] Nemesio Davila MD Powell, Tracy Alan, MD Neshangi, Srivani, MD Chronic osteomyelitis (H) (Primary Dx); Acute cystitis with hematuria; Osteomyelitis of coccyx (H); Septic shock (H); Drug-induced constipation; Loose stools; Chronic pain syndrome; Chronic atrial fibrillation (H); Pressure injury of skin, unspecified injury stage, unspecified location [L89.90]; Attention to colostomy (H) [Z43.3] Discharge Disposition: Longterm Facility 05/10/2024 Travel from Last 3 Months [...] VACCINE (#1) 2024 07/18/2009 GLUCOSE 06/03/2027 06/03/2024, 0810/2023, 05/21/2024, Additional history exists DTAP/TDAP/TD IMMUNIZATION (4 [...] 06/07/2024 9:37 PM CDT [facility] Specific [place] Urine 1.011 1.003 - 1.035 06/07/2024 9:37 [...] LAB - U RINE ORDERABLES [facility] Core Lab [address] [facility], [address] [place] [address] * (ABNORMAL) Urine Culture (06/07/2024 [...] M ICRO GENERAL ORDERABLES Performing Organization Address City/[facility]/ZIP Co de Phone Number [facility] IDD LABORATORY [facility] Inf. Diseases Diag. Lab [address] [facility], [address] [place] [address] * Trip Charge - LAB ONLY (06/03/2024 12:01 PM CDT) Only the most recent of2 resultswithin the time period is included. Other TOPOGRAPHY UNKNOWN / Unknown Billing only / Unknown 06/03/2024 12:01 PM CDT 06/03/2024 2:00 PM CDT Bharath Kelly MD LAB CHARGE PERFORMAB LES Performing Organization Address City/[facility]/ZIP Co de Phone Number [facility] LABORATORY [address] * (ABNORMAL) Basic Metabolic Panel No [...] LAB - BLOOD ORDERABL ES [facility] Core Lab [address] [facility], Room [address] [place] [phone] * (ABNORMAL) Glucose (OUTREACH) (06/03/2024 12:01 PM CDT) Only the most recent of2 resultswithin the time period is included. Glucose 227(H) 70 - 99 mg/dL 06/03/2024 4:09 PM CDT [facility] Blood STRUCTURE OF LEFT UPPER LIMB / Unknown Venipuncture / Unknown 06/03/2024 12:01 PM CDT 06/03/2024 2:00 PM CDT Bharath Kelly MD LAB - BLOOD ORDERABL ES [facility] [place] Core Lab [address] [facility], [address] [place] [address], [facility] * (ABNORMAL) CBC with platelets [...] NRBCs per 100 WBC 0 <1 /100 08/22/2 024 4:04 PM CDT [facility] LAB[facility] Absolute [...] LAB - BLOOD ORDERABL ES [facility] [place] Core Lab [address] [facility], [address] [phone] * (ABNORMAL) CBC with platelets [...] LAB - B LOOD ORDERABLES [facility] [place] Core Lab [address] [facility], [address] [place] [address], [facility] * Extra Green Top Tube (LAB USE ONLY) (05/24/2024 7:31 AM CDT) Pathologist [facility] Hold Specimen 0 05/24/2024 8:21 AM CDT LABORATORY Blood STRUCTURE OF RIGHT UPPER LIMB / Unknown Venipuncture / Unknown 05/24/2024 7:31 AM CDT 05/24/2024 8:09 AM CDT Ambar Joseph MD LAB - BLOOD ORDERABL ES LABORATORY [facility] Acute Care Lab [address] 1[address] floor, [address] [place] [address], [facility] [phone] * Platelet count (05/24/2024 7:31 AM CDT) Only the most recent of3 resultswithin the time period is included. Platelet Count 286 150 - 450 10e3/uL 05/24/2024 8:13 AM T LABORATORY Blood STRUCTURE OF RIGHT UPPER LIMB / Unknown Venipuncture / Unknown 05/24/2024 7:31 AM CDT 05/24/2024 8:10 AM CDT Peter Krishnamurthy MD LAB - BLOOD ORDERABL ES LABORATORY [facility] Acute Care Lab [address] 1st floor, [address] [place] [address], [facility] [phone] * (ABNORMAL) Basic metabolic panel (05/21/2024 7:05 AM CDT) Only the most recent of6 resultswithin the time period is included. Sodium 143 135 - 145 mmol/L 05/21/2024 7:44 AM [facility] Potassium 3.4 3.4 - 5.3 mmol/L 05/21/2024 7:44 AM [facility] Chloride 104 98 - 107 mmol/L 05/21/2024 7:44 AM [facility] Carbon Dioxide (CO2) 32(H) 22 - 29 mmol/L 05/21/2024 7:44 AM [facility] Anion Gap 7 7 - 15 mmol/L 05/21/2024 7:44 AM [facility] Urea Nitrogen 31.0(H) 8.0 - 23.0 mg/dL 05/21/2024 7:44 AM [facility] Creatinine 0.44(L) 0.51 - 0.95 mg/dL 05/21/2024 7:44 AM [facility] GFR Estimate >90 >60 mL/min/1.7 3m2 05/21/2024 7:44 AM [facility] Comment:eGFR calculated us2020 CKD-EPI equation. Calcium 8.6(L) 8.8 - 10.4 mg/dL 05/21/2024 7:44 AM [facility] Comment:Reference intervals for this test were [...] Robledo PA-C LAB - BLOOD ORDERA BLES [facility] Lab [address] floor, [address] [place] [address], [facility] [phone] * (ABNORMAL) Glucose by meter (05/19/2024 10:21 PM CDT) GLUCOSE BY METER POCT 157(H) 70 - 99 mg/dL 05/19/2024 10:28 PM CDT LABORATORY POC Blood, Capillary BLOOD SPECIMEN / Unknown 05/19/2024 10:21 PM CDT 05/19/2024 10:28 PM CDT Ambar Joseph MD LAB - BEAKER POCT LABORATORY [facility] Lab [address] 1[address] floor, [address] [place] [address], [facility] * (ABNORMAL) Phosphorus (05/19/2024 6:06 AM CDT) Phosphorus 4.8(H) 2.5 - 4.5 mg/dL 05/19/2024 7:15 AM CDT LABORATORY Blood STRUCTURE OF RIGHT UPPER LIMB / Unknown Venipuncture / Unknown 05/19/2024 6:06 AM CDT 05/19/2024 6:34 AM CDT Peter Krishnamurthy MD LAB - BLOOD ORDERABL ES LABORATORY [facility] Lab [address] 1[address] floor, [address] [place] [address], [facility] [phone] * Magnesium (05/19/2024 6:06 AM CDT) Magnesium 1.9 1.7 - 2.3 mg/dL 05/19/2024 7:15 AM CDT LABORATORY Blood STRUCTURE OF RIGHT UPPER LIMB / Unknown Venipuncture / Unknown 05/19/2024 6:06 AM CDT 05/19/2024 6:34 AM CDT Peter Krishnamurthy MD LAB - BLOOD ORDERABL ES LABORATORY [facility] Lab [address] floor, [address] [place] [address], [facility] [phone] * ANE AIRWAY ETT PERFORMABLE (05/18/2024 5:40 PM CDT) Narrative Meri Song - 05/18/2024 5:40 PM CDT Meri Song ? 05/18/2024 ??6:14 PM Airway ? Patient location during procedure: OR ? Procedure Start/Stop Times: 05/18/2024 5:40 PM Staff - ? Anesthesiologist: ??Pool Palacios, DO ? CONSTRUCTION AND MAINTENANCE INSPECTOR: Mallika Foster APRN CRNA ? Other Anesthesia Staff: Meri Song ? Performed By: APRIL and CONSTRUCTION AND MAINTENANCE INSPECTOR Consent for Airway ? Urgency: elective Indications [...] Time: 05/18/2024 5:40 PM Pool Palacios DO [place] ANESTHESIA * Adult Type and Screen (05/18/2024 11:18 AM CDT) ABO/RH(D) A POS 05/18/2024 7:11 AM CDT BLOOD BANK Antibody Screen Negative Negative 05/18/2024 7:11 AM CDT BLOOD BANK SPECIMEN EXPIRATION DATE [id number] 05/18/2024 7:11 AM CDT BLOOD BANK Blood BLOOD SPECIMEN / Unknown Venipuncture / Unknown 05/18/2024 11:18 AM CDT 05/18/2024 11:35 AM CDT Janak Robledo PA-C LAB - BLOOD BANK T EST ORDER Performing Organization Address City/[facility]/ZIP Co de Phone Number BLOOD BANK [address] [place] [address], [facility] * (ABNORMAL) Hemoglobin (05/18/2024 11:18 AM CDT) Hemoglobin 10.2(L) 11.7 - 15.7 g/dL 05/18/2024 11:39 AM CDT LABORATORY Blood BLOOD SPECIMEN / Unknown Venipuncture / Unknown 05/18/2024 11:18 AM CDT 05/18/2024 11:35 AM CDT Janak Robledo PA-C LAB - BLOOD ORDERA BLES LABORATORY [facility] Acute Care Lab [address] 1[address] floor, [address] [place] [address], [facility] [phone] * (ABNORMAL) CK total (05/18/2024 11:18 AM CDT) Only the most recent of2 resultswithin the time period is included. CK 12(L) 26 - 192 U/L 05/18/2024 12:01 PM CDT LABORATORY Blood BLOOD SPECIMEN / Unknown Venipuncture / Unknown 05/18/2024 11:18 AM CDT 05/18/2024 11:35 AM CDT Peter Krishnamurthy MD LAB - BLOOD ORDERABL ES LABORATORY [facility] Acute Care Lab [address] 1[address] floor, [address] [place] [address], [facility] [phone] * Single Lumen Midline Placement (05/18/2024 9:15 AM CDT) Narrative Dede Downing RN - 05/18/2024 9:15 AM CDT Dede Downing RN ? 05/18/2024 ??9:19 AM [facility] Single Lumen Midline Placement Date/Time: 05/18/2024 [...] procedure a time out was called ?? [place] Protocol: the Joint Commission [place] Protocol was followed ?? Preparation: Patient was [...] type: valved Catheter size: 4 Fr Brand: Saplo Lot number: [id number] Placement method: MST and ultrasound Number of [...] LABORATORY - 05/14/2024 7:39 PM CDT [facility] Xpert C. difficile Assay, performed on the [facility] GeneXpert?? Instrument Systems, is a qualitative in [...] MICRO GENERA L ORDERABLES [facility] IDD LABORATORY [facility] Inf. Diseases Diag. Lab [address] [facility], [address] [place] [address], [facility] * (ABNORMAL) WBC count (05/11/2024 10:55 AM CDT) [facility] Signature WBC Count 13.4(H) 4.0 - 11.0 10e3/uL 05/11/2024 11:27 AM CDT LABORATORY Blood STRUCTURE OF RIGHT UPPER LIMB / Unknown Venipuncture / Unknown 05/11/2024 10:55 AM CDT 05/11/2024 11:24 AM CDT Ambar Joseph MD LAB - BLOOD ORDERABL ES LABORATORY [facility] Acute Care Lab [address] 1[address] floor, [address] [place] [address], [facility] [phone] * CT Chest/Abdomen/Pelvis w Contrast (05/10/2024 4:42 [...] CDT EXAM: CT CHEST/ABDOMEN/PELVIS W CONTRAST LOCATION: [facility] DATE: 05/10/2024 INDICATION: Fever, paraplegia, abdominal [...] 05/10/2024 EXAM: CT CHEST/ABDOMEN/PELVIS W CONTRAST LOCATION: [facility] DATE: 05/10/2024 INDICATION: Fever, paraplegia, abdominal [...] to Chago Meadows PA-C by Dr. Mirza. [facility] on 05/10/2024 5:18 PM CDT. Chago Meadows [...] RESULTS QTc 445 ms RADIOLOGY RESULTS P [place] 65 degrees RADIOLOGY RESULTS R AXIS 25 degrees RADIOLOGY RESULTS T [place] 50 degrees RADIOLOGY RESULTS Interpretation ECG Sinus tachycardia Possible Left atrial enlargement Borderline ECG When compared with ECG of 12-Mar-2024 11:32, Right bundle branch block is no longer Present Confirmed by GENERATED REPORT, COMPUTER ([id number]), health editor BHARATH LYNN ([id number]) on 05/10/2024 3:50:14 PM RADIOLOGY RESULTS 05/10/2024 3:43 PM CDT 05/10/2024 3:50 PM CDT Chago Meadosw PA-C ECG ORDERABLES RADIOLOGY RESULTS * Blood Culture Peripheral Blood (05/10/2024 2:48 PM CDT) Culture No Growth 05/15/2024 3:31 PM CDT UU IDD LABORATORY Blood BLOOD SPECIMEN / Unknown Venipuncture / Unknown 05/10/2024 2:48 PM CDT 05/10/2024 3:17 PM CDT Chago Meadows PA-C LAB - MICRO GENERAL ORDERABLES [facility] IDD LABORATORY [facility] Inf. Diseases Diag. Lab [address] [facility], [address] [place] [phone] * Symptomatic Influenza [...] the Xpert Xpress CoV2/Flu/RSV Assay on the [facility] GeneXpert Instrument. This test should be ordered [...] management. This test was validated by the [facility] [employer]. These laboratories are certified under the Clinical Laboratory Improvement Amendments of 1988 (CLIA-88) as qualified to perform high complexity laboratory testing. Chago Meadows PA-C LAB - MICRO GENERAL ORDERABLES LABORATORY [facility] Lab [address] floor, [address], [place] [address], [facility] [phone] * (ABNORMAL) Lipase (05/10/2024 2:44 PM CDT) Pathologist [facility] Lipase 11(L) 13 - 60 U/L 05/10/2024 3:41 PM CDT LABORATORY Blood BLOOD SPECIMEN / Unknown Venipuncture / Unknown 05/10/2024 2:44 PM CDT 05/10/2024 3:17 PM CDT Chago Meadows PA-C LAB - BLOOD ORDERABL ES LABORATORY [facility] Lab [address] 1[address] floor, [address] [place] [address], [facility] [phone] * (ABNORMAL) CRP inflammation (05/10/2024 2:44 PM CDT) CRP Inflammation 61.98(H) <5.00 mg/L 05/10/2024 7:41 PM CDT LABORATORY Blood BLOOD SPECIMEN / Unknown Venipuncture / Unknown 05/10/2024 2:44 PM CDT 05/10/2024 3:17 PM CDT Ambar Joseph MD LAB - BLOOD ORDERABL ES LABORATORY [facility] Acute Care Lab [address] floor, [address] [place] [address], [place] [phone] * (ABNORMAL) Comprehensive metabolic panel (05/10/2024 2:44 [...] 3:41 PM CDT LABORATORY Comment:eGFR calculated usin g 2020 CKD-EPI equation. Calcium 8.8 8.8 - [...] PA-C LAB - BLOOD ORDERABL ES LABORATORY [facility] Acute Care Lab 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
--- OUTSIDE RECORDS SUMMARY | 2024-07-20 11:36 | XMS_ITS | Encounter Summary ---
Author Organization [place] Address [address] [facility] [place] [address] Care Team Providers Care Command Center Officer Name Role Phone Flo Mckeon MD Primary Care Provider [phone] Reason for Visit * Reason Onset Date Comments Prior Auth - Medication 05/21/2024 Buprenor phine patch - Approved Encounter Details Date Type Department Care Team (Late st Contact Info) Description 05/21/2024 Telephone [facility] Pain Management Center [address] [place] [address] [address] [place] [address] Leela Degroot, AMIRAH ELECTRIC ARC WELDER [address] [place] [address] Prior Auth - Medication (Buprenorphine patch - [...] Approved Dose/Quantity: 4 for 28 Reference #: [id number] Insurance Company: [employer] [phone] Expected CoPay: $ CoPay Card Available: Financial Assistance Needed: Which Pharmacy is filling the prescription: Pharmacy Notified: Patient Notified: documented in this encounter Plan of Treatment Not on file documented as of this encounter Visit Diagnoses Not on filedocumented in this encounter Additional Health Concerns Infection Onset Date Last Indicated Resolved Time 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
--- OUTSIDE RECORDS SUMMARY | 2024-07-20 11:36 | XMS_ITS | Encounter Summary ---
Author Organization [place] Address [address] [place] [address]. [place] [address] Care Team Providers Care Senior Strategy Manager Name Role Phone Flo Mckeon MD Primary Care Provider [phone] Encounter Details Date Type Department Care Team ([facility] st Contact Info) Description 05/18/2024 Medical Correspondence [facility] [address] [place] [address] Scan, Non-Provider Social History Tobacco Use [...] as of this encounter Care Teams Senior Strategy Manager Relationship Specialty Start Date End Date Flo Mckeon MD [facility] [address] [place] [address] PCP - General Family Medicine 03/09/24 documented as of this encounter
--- OUTSIDE RECORDS SUMMARY | 2024-07-20 11:36 | XMS_ITS | Encounter Summary ---
Author Organization [place] Address [address] [facility] [place] [address] Care Team Providers Care Tool Room Attendant Name Role Phone Flo Mckeon MD Primary Care Provider [phone] Reason for Visit * Reason Comments Wound Infection * Auth/Cert Specialty Diagnoses / Procedures Referred By Contac t Referred To Contact EMERGENCY MEDICINE Diagnoses Acute cystitis with hematuria Osteomyelitis of coccyx (H) Emergency Dept [address] [place] [address] Referral ID Status Reason Start Date Expiration Date Visits Re quested Visits Authorized [id number] 1 1 Encounter Details Date Type Department Care Team (Late st Contact Info) Description 05/10/2024 2:20 PM CDT - 05/26/2024 3:13 PM CDT Hospital Encounter [facility] General Surgery [address] [place] [address] Nemesio Davila MD [facility] [address] [place] [address] Natasha Selby MD [facility] [address] [place] [address] Ambar Joseph MD [address] [address] Chronic osteomyelitis (H) (Primary Dx); Acute cystitis with hematuria; Osteomyelitis of coccyx (H); Septic shock (H); Drug-induced constipation; Loose stools; Chronic pain syndrome; Chronic atrial fibrillation (H); Pressure injury of skin, unspecified injury stage, unspecified location [L89.90]; Attention to colostomy (H) [Z43.3] Discharge Disposition: [facility] Facility Social History Tobacco Use Types Packs/Day [...] Garcia DO - 05/26/2024 1:09 PM CDT [facility] Hospitalist Discharge Summary Date of Admission: [...] recommended labs and tests Follow up with [facility] physician. The following labs/tests are recommended: CBC [...] FROILAN Robles at [facility] clinic on 06/08/24 at 11:00 am for a stoma check. Follow up with Dr. Alfredo at [facility] clinic on 07/07/24 at 1:40 pm for a post-op visit. Call the office at [phone] if you need to reschedule either appointment. Clinic address: [facility] Rect[facility] Surgery [address] [address] Patient to contact the CRS office at [phone] if not has an appointment already. Unresulted [...] History of MRSA infection. -Recent admission at [facility] between 03/07-03/14/2024 for septic shock secondary to E. coli UTI with bacteremia, readmitted at [facility] on 03/21/2024 with severe sepsis and another admission at [facility] between 03/24-03/31 2024 -Presented here with [...] fibrillation not on anticoagulation. # Hypertension - CUSTOMER PROJECT MANAGER Lasix held on admission. Restarted on 05/12/2024 - Continue CUSTOMER PROJECT MANAGER Toprol, switch to immediate release 25 mg twice daily with hold parameters. - CUSTOMER PROJECT MANAGER not on aspirin or statin. Defer further cardiac workup to outpatient. # Hypokalemia-resolved -Replace per protocol # Obstructive sleep apnea -Uses BiPAP as outpt. Has chronic CO2 retention. -BiPAP per home settings. # Rheumatoid arthritis -Continue on CUSTOMER PROJECT MANAGER on prednisone 10 mg daily. # Chronic Anemia likely secondary to chronic disease. -Baseline hemoglobin 9-10 range. -Hemoglobin at around previous baseline. # Incidental renal stones. CT - No hydronephrosis. Nonobstructive right renal pelvic stones including 13 mm right UPJ calculus. - Recommend follow-up with urology as outpatient if symptomatic. # Diabetes mellitus with a hemoglobin A1c of 6.6. -CUSTOMER PROJECT MANAGER not on meds. BS are 94 - [...] minutes discharging this patient. Forrest Garcia DO [address] [address] Physical Exam Vital Signs: Temp: 98.9 ??F [...] FROILAN Robles at [facility] clinic on 06/08/24 at 11:00 am for a stoma check. Follow up with Dr. Alfredo at [facility] clinic on 07/07/24 at 1:40 pm for a post-op visit. Call the office at [phone] if youneed to reschedule either appointment. Clinic address: [facility] [address] [facility] [address] [place] [address] Patient to contact the CRS office at [phone] if not has an appointment already. General info for SNF Length of Stay Estimate: Short Term Care: Estimated # of Days <30 Condition at Discharge: Stable Level of care:skilled Rehabilitation Potential: Fair Admission H&P remains valid and up-to-date: Yes Recent Chemotherapy: N/A Use Long Term Standing Orders: Yes Mantoux instructions Give two-step Mantoux (PPD) Per Facility Policy Yes Follow Up and recommended labs and tests Follow up with [facility] physician. The following labs/tests are recommended: CBC [...] Narrative EXAM: CT CHEST/ABDOMEN/PELVIS W CONTRAST LOCATION: [facility] DATE: 05/10/2024 INDICATION: Fever, paraplegia, abdominal [...] from the original note were not included. [facility] Hospitalist PROGRESS NOTE Date of Admission: [...] Patient to contact the CRS office at [phone] if not has an appointment already. Unresulted [...] to pursue diverting colectomy while inpatient. --Admitted [facility] on 03/06 -03/14/2024 for septic shock secondary to E. coli UTI with bacteremia, stage IV right ischial tuberosity decubitus ulcer. --Readmitted at [facility] on 03/21/[address] showed a sacral decubitus ulcer extending to the sacrum, right deep gluteal soft tissue tunneling and lower gluteal/upper thigh ulceration extending to the ischial tuberosity with evidence of chronic osteomyelitis. General surgery, infectious disease followed and recommended transfer to tertiary center. ---Was admitted at [facility] 03/24 to 03/31/2024. General surgery, infectious [...] discussed above. Chronic pain on narcotics. Continue CUSTOMER PROJECT MANAGER Tylenol. Continue CUSTOMER PROJECT MANAGER gabapentin. Continue CUSTOMER PROJECT MANAGER as needed oxycodone, minimize use as able [...] atelectasis, effusions, or pneumothorax. Moderate atherosclerotic disease. CUSTOMER PROJECT MANAGER Lasix held on admission. Restarted on 05/12/2024 Continue CUSTOMER PROJECT MANAGER Toprol, switch to immediate release 25 mg twice daily with hold parameters. ---- CUSTOMER PROJECT MANAGER not on aspirin or statin. Defer further cardiac workup to outpatient. Telemetry monitoring. Intake output monitoring, daily weights. Hypokalemia. Potassium replacement ordered Potassium normal at 4.1 Obstructive sleep apnea Uses BiPAP as outpt. Has chronic CO2 retention. Resume BiPAP per home settings. Rheumatoid arthritis Continue on CUSTOMER PROJECT MANAGER on prednisone 10 mg daily. Used to take methotrexate, but intolerant/side effects. Chronic Anemia likely secondary to chronic disease. Baseline hemoglobin 9-10 range. Hemoglobin at around previous baseline. Incidental renal stones. CT - No hydronephrosis. Nonobstructive right renal pelvic stones including 13 mm right UPJ calculus. Recommend follow-up with urology as outpatient if symptomatic. Diabetes mellitus with a hemoglobin A1c of 6.6. CUSTOMER PROJECT MANAGER not on meds. BS were 93-200 Diet [...] minutes discharging this patient. Anna Fajardo MD [place] [address] [facility] [address], [address] [place] [address] Physical Exam Vital Signs: Temp: 98.3 ??F [...] Patient to contact the CRS office at [phone] if not has an appointment already. Diet [...] C. difficile Antigen and Toxins A/B EIA [[id number]] Stool from Per Rectum Final result Component Value C Difficile Toxin B by PCR Negative A negative result does not exclude actual disease due to C. difficile and may be due to improper collection, handling and storage of the specimen or the number of organisms in the specimen is below the detection limit of the assay. 05/12/2024 1220 05/13/2024 1046 Urine Culture [[id number]] Urine, Cristobal Catheter Final result Component Value Culture No Growth 05/10/2024 1448 05/15/2024 1531 Blood Culture Peripheral Blood [[id number]] Peripheral Blood Final result Component Value Culture No Growth 05/10/2024 1446 05/10/2024 1608 Symptomatic Influenza A/B, RSV, & SARS-CoV2 PCR (COVID-19) Nasopharyngeal [[id number]] Swab from Nasopharyngeal Final result Component Value [...] Narrative EXAM: CT CHEST/ABDOMEN/PELVIS W CONTRAST LOCATION: [facility] DATE: 05/10/2024 INDICATION: Fever, paraplegia, abdominal [...] Cover with Mepilex 4x4. Follow up with brownfield redevelopment specialist in 2-4 weeks. Ok to use [...] frequently. 9. OK to take stairs. Supplies: MD2U New Image 2-pc system (up to 20 pouch changes/month) 1. Barrier: New Image CeraPlus 70mm soft convex cut-to-fit with tape - #95224 (5/box = 2 box/month) 2a. Pouch: 70mm closed pouch, beige, with filter, 'quiet-wear' - #14234 (30/box = 2 box/month) and/or 2b. Pouch: 70mm drainable lock n roll, beige, with filter - #89855 (10/box = 1-2 box/month) 3. Ring: [place] 2 CeraRing (if needed for leakage; as stool thickens you might not need the ring anymore) - #0393 (10/box = 1 box/month) As needed 4. 3M Cavilon no-sting skin barrier (optional if needed) - #8371 (50/box = 1 box as needed) 5. Stoma powder (if needed) - #7906 (1 bottle as needed) 6. Odor eliminator & lubricant (optional) - #96476 (8oz bottle) or #89987 (8ml packets, 50 in abox) (1 as [...] Clinic room is on 1st floor in [facility] - check in at [facility] in [facility] phone # [phone] (Fri - Fri) - call for any [...] (LOPRESSOR) 25 MG tabletIndications:Ch ronic atrial fibrillation (H) Take 1 tablet (25 [...] of this encounter Progress Notes * Bertha Campbell RN - 05/26/2024 12:31 PM CDT Coccyx/Sacral dressing changed, not secured with the mepilex, as pt has tape huff and breakdown. [facility] facility will assess and change dressing tonight, so it is secured with paper tape and a brief * Elizabeth Hector LSW - 05/26/2024 11:33 AM CDT Care Management Discharge Note Discharge Date: 05/26/2024 Discharge Disposition: [facility] Facility Discharge Services: Discharge DME: Discharge Transportation: Private pay costs discussed: Not applicable Does the patient's insurance plan have a 3 day qualifying hospital stay waiver? No PAS Confirmation Code: [id number] Patient/family educated on Medicare website which has current facility and service quality ratings:yes Education Provided on the Discharge Plan: Persons Notified of Discharge Plans: INSURANCE ADJUSTER, Charge, patient, facility, family Patient/Family in Agreement with the Plan: yes Handoff Referral Completed: No Additional Information: Systems Eng received confirmation that [employer] insurance auth received. Faxed orders to [facility]. Faxed meds and PAS, let daughter and nurse know patient was discharging. Patient may need to leave her wheelchair and some belongings here and daughter will excelsior picker from [facility]. CHANTE Smiley * Izzy Marie RN - 05/26/2024 10:35 AM CDT Images from the original note were not included. [facility] Nurse Inpatient Assessment Consulted for: Colostomy, buttock wounds Summary: New colostomy 05-18-24 for improved wound hygiene. Stoma viable, output WNL. Supplies for discharge in room. Patient reports daughterElvi is primary primary care nurse practitioner who will perform ostomy changes. 05/26 pt [...] Surgery Date: 05/18/24 Surgeon: Dr. Peter Alfredo Hospital: [facility] Pouching system in place on assessment today: Alessia two piece soft convex Pouch barrier status: intact Pouch last changed/wear time: 05/18, 05/20, 05/24, 05/26 Reason for pouch change today: routine schedule and assessment Effectiveness of current pouching/ supply plan: Recommend continuing current plan Change made with ostomy management today: No Pouching system placed today: [place] 2pc 70mm soft convex with ring and [...] Pain: tender Is patient still on a HEAD TURNING MACHINE OPERATOR? No Ostomy education assessment: Participant of teaching [...] order supplies afterdischarge , Ordered samples from hydrography teacher after gaining consent from patient/caregiver, Discussed how and when to make an outpatient [facility] nurse appointment after discharge, Prepared for discharge home with home care, and Discuss signs/symptoms of when to seek medical attention Preparation for discharge still needed: reinforce teaching; family and pt need hands-on practice Pt support system on discharge: niece and daughter [facility] recommend home care? Yes after TCU Wound [...] areas Positioning Equipment: as needed Fluidized positioner (#[id number] or #[id number]- large) to help maintain side lying position. Chair positioning: Chair cushion (#[id number]) , Assist patient to reposition hourly, and [...] system: ostomy supplies pouches: Alessia 70 FECAL (190537) ostomy supplies barrier: [place] 70mm SOFT CONVEX (672861) Accessories used: WO ostomy accessories: 2 Cera Barrier Ring (926529) Frequency of pouch changes: PRN leakage and [...] to notify the Provider(s) and re-consult the [facility] Nurse if new skin concern. DATA: Current [...] Izzy Marie RN CWOCN -Securely message with Crossfader ([facility] [employer]) [facility] -[facility] Office (messages checked periodically Mon-Fri 8a-4p) * Elizabeth Hector [facility] - 05/26/2024 10:07 AM CDT Care Management Follow Up Length of Stay (days): 16 Expected Discharge Date: 05/26/2024 Concerns to be Addressed: Patient plan of care discussed at interdisciplinary rounds: Yes Anticipated Discharge Disposition: [facility] Facility Anticipated Discharge Services: Anticipated Discharge DME: Patient/family educated on Medicare website which has current facility and service quality ratings:yes Education Provided on the Discharge Plan: Patient/Family in Agreement with the Plan: yes Referrals Placed by CM/SW: Senior Linkage Line, Post Acute Facilities, Transportation Private pay costs discussed: Not applicable Additional Information: Systems Eng completed pas in anticipation of discharge. PAS-RR D: Per [employer] regulation, DAISY completed and submitted PAS-RR to [place] Board on [employer] Direct Connect via the Senior LinkAge Line. PAS-RR confirmation # is : [id number] I: DAISY spoke with PT and they [...] Line at # , option #4 for PAS-RR staff. CHANTE Smiley * Mateo Henry RN - 05/26/2024 6:36 AM CDT Date & Time: 05/25/24, 8820-9273 Surgery/POD#: POD7/8 diverting colostomy Hx: Chronic osteomyelitis, [...] (05/26) Significant Information: Possible discharge 05/26 to [facility] pending insurance approval.Ride is currently scheduled for [phone]. Per patient, upper extremity mobility is below baseline and would appreciate PT assessment for rehab suitability as patient's baseline strength previously made her an assist of 1 for home ADLs. * Forrest Garcia DO - 05/25/2024 3:52 PM CDT [facility] Medicine Progress Note - Hospitalist Service [...] History of MRSA infection. -Recent admission at [facility] between 03/07-03/14/2024 for septic shock secondary to E. coli UTI with bacteremia, readmitted at [facility] on 03/21/2024 with severe sepsis and another admission at [facility] between 03/24-03/31 2024 -Presented here with [...] fibrillation not on anticoagulation. # Hypertension - CUSTOMER PROJECT MANAGER Lasix held on admission. Restarted on 05/12/2024 - Continue CUSTOMER PROJECT MANAGER Toprol, switch to immediate release 25 mg twice daily with hold parameters. - CUSTOMER PROJECT MANAGER not on aspirin or statin. Defer further cardiac workup to outpatient. # Hypokalemia-resolved -Replace per protocol # Obstructive sleep apnea -Uses BiPAP as outpt. Has chronic CO2 retention. -BiPAP per home settings. # Rheumatoid arthritis -Continue on CUSTOMER PROJECT MANAGER on prednisone 10 mg daily. # Chronic Anemia likely secondary to chronic disease. -Baseline hemoglobin 9-10 range. -Hemoglobin at around previous baseline. # Incidental renal stones. CT - No hydronephrosis. Nonobstructive right renal pelvic stones including 13 mm right UPJ calculus. - Recommend follow-up with urology as outpatient if symptomatic. # Diabetes mellitus with a hemoglobin A1c of 6.6. -CUSTOMER PROJECT MANAGER not on meds. BS are 94 - [...] Ready Now Forrest Garcia DO Hospitalist Service [facility] Securely message with Crossfader (more info) Text page via [employer] Paging/Directory Interval History Patient seen and examined. [...] from the original note were not included. [facility] Nurse Inpatient Assessment Consulted for: Colostomy, buttock wounds Summary: New colostomy 05-18-24 for improved wound hygiene. Stoma viable, output WNL. Supplies for discharge in room. Pouch changed 05/24, no family present. Patient reports daughter, Elvi is primary primary care nurse practitioner who will perform ostomy changes POA wounds [...] Surgery Date: 05/18/24 Surgeon: Dr. Peter Alfredo [facility]: [facility] Pouching system in place on assessment today: Alessia two piece soft convex Pouch barrier status: intact Pouch last changed/wear time: 05/18, 05/20, 05/24 Reason for pouch change today: pouch not changed today Effectiveness of current pouching/ supply plan: Needs soft convexity at discharge Change made with ostomy management today: No Pouching system placed today: [place] 2pc 57mm soft convex with ring and [...] Pain: tender Is patient still on a HEAD TURNING MACHINE OPERATOR? No Ostomy education assessment: Participant of teaching [...] order supplies afterdischarge , Ordered samples from hydrography teacher after gaining consent from patient/caregiver, Discussed how [...] areas Positioning Equipment: as needed Fluidized positioner (#[id number] or #74614- large) to help maintain side lying position. Chair positioning: Chair cushion (#[id number]) , Assist patient to reposition hourly, and [...] system: ostomy supplies pouches: Alessia 70 FECAL (416041) ostomy supplies barrier: Alessia 70mm SOFT CONVEX (838405) Accessories used: WO ostomy accessories: 2 Cera Barrier Ring (698670) Frequency of pouch changes: PRN leakage and [...] up for ostomy teaching after surgery Notify WO if wound(s) deteriorate. Nursing to notify the [...] Shear: 1-->problem Brandon Score: 13 [facility]. Vocera- Contact [facility] Nurse (Zaynab) via Vocera Dept. Office Number: [phone] * Elizabeth Hector LSW - 05/25/2024 1:13 PM CDT Care Management Follow Up Length of Stay (days): 15 Expected Discharge Date: 05/26/2024 Concerns to be Addressed: Patient plan of care discussed at interdisciplinary rounds: Yes Anticipated Discharge Disposition: [facility] Anticipated Discharge Services: Anticipated Discharge DME: Patient/family educated on Medicare website which has current facility and service quality ratings: Education Provided on the Discharge Plan: Patient/Family in Agreement with the Plan: yes Referrals Placed by CM/SW: Senior Linkage Line, Post Acute Facilities, Transportation Private pay costs discussed: Not applicable Additional Information: [facility] updated that they have not received auth yet, ticket writer rescheduled transport to tomorrow between 0928 - 5385 updated patient CHANTE Smiley * Chel Hoskinssten, [...] 59.6 kg (admit 05/10) Estimated Energy Needs: [phone] kcals (25-30 Kcal/Kg) Justification: maintenance, wound healing [...] Yarelis Hoskins RD, LD Clinical Dietitian - [facility] * Elizabeth Hector, FOREST SCIENCE PROFESSOR - 05/25/2024 11:39 AM CDT Care Management [...] pay costs discussed: Not applicable Additional Information: Systems Eng called [facility] and spoke to Mary They still have not heard back about insurance authorization. Patient could still admit today if they do get authorization from [employer] if not we will have to post pone until tomorrow. Systems Eng updated Elvi - patients daughter as she needs to excelsior picker some items from the room. ADD - ticket writer rescheduled transportation to between 3:30 - 4:30 [...] Mobility Bed Mobility rolling left Rolling Left [place] (Bed Mobility) 2 person assist;moderate assist (50% patient effort) Assistive Device (Bed Mobility) draw sheet;bed rails Transfers Transfer Comments dep dustin lift Activities of Daily Living BADL Assessment/Intervention feeding (pt dep for all other ADLs) Eating/Self Feeding [place] Level (Feeding) set up Comment, (Feeding) seated [...] Evaluation Time OT Eval, Low Complexity Minutes (21290) 20 OT Goals Therapy Frequency (OT) 3 [...] Therapeutic Activity Therapeutic Activities Therapeutic Activity Minutes (91768) 8 Treatment Detail/Skilled Intervention extended time with [...] untimed services) 28 * Leela Degroot APRN EXERCISE INSTRUCT - 05/25/2024 7:18 AM CDT Images from the original note were not included. [facility] ACUTE PAIN SERVICE CONSULTATION [facility] Text Page Pain [facility] Assessment and Plan Prerna Major is a [...] and concerns addressed to patient's satisfaction. NUBIA BowerC,QUALITY MEASUREMENT SPECIALIST,EXERCISE INSTRUCT,ACHPN Secure messaging with [employer] Paging/Reward [facility] Hours 8-4:00 Friday-Friday after 3:30 contact hospital service covering provider * Mateo Henry RN - 05/25/2024 6:23 AM CDT Date & Time: 05/24/24, 5076-2845 Surgery/POD#: POD6/7 diverting colostomy Hx: Chronic osteomyelitis, [...] Significant Information: Plan to discharge 05/25 to [facility] possibly pending PT/OT to see for insurance approval. Ride is currently scheduled for between [phone]. * aMribel Clayton RN - 05/24/2024 11:50 PM CDT [...] DC Date: Plan to discharge tomorrow to [facility] * Elizabeth Hector LSW - 05/24/2024 [...] pay costs discussed: Not applicable Additional Information: Systems Eng received message from [facility] that they can accept patient into their TCU. They willrun her insurance auth for acceptance. They asked ticket writer to schedule a ride for tomorrow. Systems Eng will update patient Systems Eng arranged tentative transport using [employer] stretcher, patient aware of costs, ride time is for between 1410 - 1450 [facility] noticed patient does not have Pt/OT notes on file and may need an assessment in order to get auth from insurance. Systems Eng sent provider a message asking for PT/OT to see CHANTE Smiley * Leela Degroot APRN EXERCISE INSTRUCT - 05/24/2024 11:45 AM CDT Images from the original note were not included. [facility] ACUTE PAIN SERVICE [facility] PAIN Progress Note Assessment/Plan: Assessment/Plan: [...] planned procedure. Patient is familiar to this ticket writer please see note from 05/12/24 for details [...] Senna-docusate -Opioid prescriber Flo Lanier MD -[place] ELECTRICAL ENGINEERING INTERN pulled from system on no controlled substance note . Discussed by patrice Mars PharmD covering floor and verified script of Oxycodone at last discharge and othe script of Oxycodone consistently from [facility] This indicates discrepancy Discharge Recommendations [...] SpO2 95% BMI 27.56 kg/m?? Weight: Vitals: 08/08/24 0600 05/21/24 0700 05/22/24 0647 05/23/24 0645 [...] ACHPN, PGMT- Acute Care Pain Management Program [facility] Friday-Friday 8a-4p Page via [employer] or Archiveaging * Elizabeth Hector LSW - 05/24/2024 11:27 [...] pay costs discussed: Not applicable Additional Information: Systems Eng checked on pending referral for TCU with [facility]. They have multiple locations. Aetnainsurance is very limited The following are pending referrals [facility] ([facility]) Pending - Request Sent N/A [address] [facility] [address] -- Internal Comment last updated by Roel Holcomb MA 05/24/2024 8:05 AM 05/24 0756 sent email to admissions ~ap [facility] ([facility]) Pending - Request Sent N/A [address] 10/14 [facility] [address] -- [facility] ([facility]) Pending - Request Sent N/A [address] [facility] [address] -- [facility] () Pending - Request Sent N/A [address] [facility] [address] -- Current Capacity last updated by Paul Tang RN on 05/13/2024 10:01 AM Admissions: Mary [phone] Monie [phone] - [facility] ([facility]) Pending - Request Sent N/A [address] [facility] [address] -- [facility] () Pending - Request Sent N/A [address] [facility] [address] [phone] -- Current Capacity last updated by Mercy Aguilar MA on 04/06/2024 9:55 AM Non smoking - Send full referral - *[facility]: Avery Lopez ph. [phone] (note that referral is for Ali)* Katie Snyder ([facility]) Pending - Request Sent N/A [address] [facility] [address] -- CHANTE Smiley * Izzy Marie RN - 05/24/2024 10:57 AM CDT Images from the original note were not included. [facility] WOC Nurse Inpatient Assessment Consulted for: Colostomy, buttock [...] a day on discharge this is acceptable. [facility] planning to follow-up on wounds/plan on 05/25 [...] Surgery Date: 05/18/24 Surgeon: Dr. Peter Alfredo Hospital: [facility] Pouching system in place on assessment [...] Pain: tender Is patient still on a HEAD TURNING MACHINE OPERATOR? No Ostomy education assessment: Participant of teaching [...] order supplies afterdischarge , Ordered samples from hydrography teacher after gaining consent from patient/caregiver, Discussed how and when to make an outpatient WOC nurse appointment after discharge, Prepared for discharge home with home care, and Discuss signs/symptoms of when to seek medical attention Preparation for discharge still needed: reinforce teaching; family and pt need hands-on practice Pt support system on discharge: niece and daughter [facility] recommend home care? Yes Buttock assessment copied [...] areas Positioning Equipment: as needed Fluidized positioner (#[id number] or #[id number] large) to help maintain side lying position. Chair positioning: Chair cushion (#[id number]) , Assist patient to reposition hourly, and [...] pouching plan: Pouching system: ostomy supplies pouches: [place] 70 FECAL ([id number]) ostomy supplies barrier: Alessia 70mm SOFT CONVEX ([id number]) Accessories used: [facility] ostomy accessories: 2 Cera Barrier Ring ([id number]) Frequency of pouch changes: PRN leakage and Three times a week WOC follow up plan: Daily Wade-Friday (as able) Bedside RN interventions: Change pouch [...] Izzy Marie RN CWOCN -Securely message with [employer] ([facility]) [facility] -[facility] Office (messages checked periodically Fri-Fri 8a-4p) * Chris Son MD - 05/24/2024 9:41 AM CDT [facility] Medicine Progress Note - Hospitalist Service [...] History of MRSA infection. -Recent admission at [facility] between 03/07-03/14/2024 for septic shock secondary to E. coli UTI with bacteremia, readmitted at [facility] on 03/21/2024 with severe sepsis and another admission at [facility] between 03/24-03/31 2024 -Presented here with [...] fibrillation not on anticoagulation. # Hypertension - CUSTOMER PROJECT MANAGER Lasix held on admission. Restarted on 05/12/2024 - Continue CUSTOMER PROJECT MANAGER Toprol, switch to immediate release 25 mg twice daily with hold parameters. - CUSTOMER PROJECT MANAGER not on aspirin or statin. Defer further cardiac workup to outpatient. # Hypokalemia-resolved -Replace per protocol # Obstructive sleep apnea -Uses BiPAP as outpt. Has chronic CO2 retention. -BiPAP per home settings. # Rheumatoid arthritis -Continue on CUSTOMER PROJECT MANAGER on prednisone 10 mg daily. # Chronic Anemia likely secondary to chronic disease. -Baseline hemoglobin 9-10 range. -Hemoglobin at around previous baseline. # Incidental renal stones. CT - No hydronephrosis. Nonobstructive right renal pelvic stones including 13 mm right UPJ calculus. - Recommend follow-up with urology as outpatient if symptomatic. # Diabetes mellitus with a hemoglobin A1c of 6.6. -CUSTOMER PROJECT MANAGER not on meds. BS are 94 - [...] for evaluation. CHRIS SON MD Hospitalist Service [facility] Securely message with Crossfader (more info) Text page via [employer] Paging/Directory Interval History -Afebrile and hemodynamically stable [...] Son MD - 05/23/2024 8:50 AM CDT [facility] Medicine Progress Note - Hospitalist Service [...] History of MRSA infection. -Recent admission at [facility] between 03/07-03/14/2024 for septic shock secondary to E. coli UTI with bacteremia, readmitted at [facility] on 03/21/2024 with severe sepsis and another admission at [facility] between 03/24-03/31 2024 -Presented here with [...] fibrillation not on anticoagulation. # Hypertension - CUSTOMER PROJECT MANAGER Lasix held on admission. Restarted on 05/12/2024 - Continue CUSTOMER PROJECT MANAGER Toprol, switch to immediate release 25 mg twice daily with hold parameters. - CUSTOMER PROJECT MANAGER not on aspirin or statin. Defer further cardiac workup to outpatient. # Hypokalemia-resolved -Replace per protocol # Obstructive sleep apnea -Uses BiPAP as outpt. Has chronic CO2 retention. -BiPAP per home settings. # Rheumatoid arthritis -Continue on CUSTOMER PROJECT MANAGER on prednisone 10 mg daily. # Chronic Anemia likely secondary to chronic disease. -Baseline hemoglobin 9-10 range. -Hemoglobin at around previous baseline. # Incidental renal stones. CT - No hydronephrosis. Nonobstructive right renal pelvic stones including 13 mm right UPJ calculus. Recommend follow-up with urology as outpatient if symptomatic. # Diabetes mellitus with a hemoglobin A1c of 6.6. -CUSTOMER PROJECT MANAGER not on meds. BS are 94 - [...] TCU placement. CHRIS SON MD Hospitalist Service [facility] Securely message with Crossfader (more info) Text page via [facility] Paging/Directory Interval History -Afebrile and hemodynamically [...] Son MD - 05/22/2024 3:53 PM CDT [facility] Medicine Progress Note - Hospitalist Service [...] History of MRSA infection. -Recent admission at [facility] between 03/07-03/14/2024 for septic shock secondary to E. coli UTI with bacteremia, readmitted at [facility] on 03/21/2024 with severe sepsis and another admission at [facility] between 03/24-03/31 2024 -Presented here with [...] 01/14/2023] Atrial fibrillation not on anticoagulation. Hypertension CUSTOMER PROJECT MANAGER Lasix held on admission. Restarted on 05/12/2024 Continue CUSTOMER PROJECT MANAGER Toprol, switch to immediate release 25 mg twice daily with hold parameters. -CUSTOMER PROJECT MANAGER not on aspirin or statin. Defer further cardiac workup to outpatient. Hypokalemia. -Replace per protocol Obstructive sleep apnea -Uses BiPAP as outpt. Has chronic CO2 retention. -BiPAP per home settings. Rheumatoid arthritis -Continue on CUSTOMER PROJECT MANAGER on prednisone 10 mg daily. Chronic Anemia likely secondary to chronic disease. -Baseline hemoglobin 9-10 range. -Hemoglobin at around previous baseline. Incidental renal stones. CT - No hydronephrosis. Nonobstructive right renal pelvic stones including 13 mm right UPJ calculus. Recommend follow-up with urology as outpatient if symptomatic. Diabetes mellitus with a hemoglobin A1c of 6.6. -CUSTOMER PROJECT MANAGER not on meds. BS are 94 - [...] TCU placement. CHRIS SON MD Hospitalist Service [facility] Securely message with Crossfader (more info) Text page via [employer] Paging/Directory Interval History -Afebrile and hemodynamically stable [...] from the original note were not included. [facility] Nurse Inpatient Assessment Consulted for: Colostomy, [...] Surgery Date: 05/18/24 Surgeon: Dr. Peter Alfredo [facility]: [facility] Pouching system in place on assessment [...] discussed 05/21 Is patient still on a HEAD TURNING MACHINE OPERATOR? No Ostomy education assessment: Participant of teaching [...] order supplies afterdischarge , Ordered samples from hydrography teacher after gaining consent from patient/caregiver, Discussed how and when to make an outpatient WO nurse appointment after discharge, Prepared for discharge home with home care, and Discuss signs/symptoms of when to seek medical attention Preparation for discharge still needed: reinforce teaching Pt support system on discharge: niece and daughter [facility] recommend home care? Yes Buttock assessment copied [...] areas Positioning Equipment: as needed Fluidized positioner (#[id number] or #[id number]- large) to help maintain side lying position. Chair positioning: Chair cushion (#[id number]) , Assist patient to reposition hourly, and [...] system: ostomy supplies pouches: Alessia 70 FECAL (171941) ostomy supplies barrier: Alessia 70mm SOFT CONVEX (098764) Accessories used: [facility] ostomy accessories: 2 Cera Barrier Ring (304100) Frequency of pouch changes: PRN leakage and [...] Johanny FOURNIER 1st choice: Securely message with [employer]ader ([facility]) (2nd option: [facility] Office , messages checked periodically Mon- Fri [...] pay costs discussed: Not applicable Additional Information: Systems Eng was told by provider that patient may need TCU. Patient has [employer], ticket writer met with patient at bedside to discuss choices and options for TCU, provided [employer] list near patients home. Patient reports having bad experiences in previous TCU stays. Patient agreed for ticket writer to send referrals to [facility]. Referrals sent via [facility] Service Provider Request Status Selected Services Address Phone Fax Patient Preferred [facility] ([facility]) Pending - Request Sent N/A [id number] [facility] [address] [phone] -- Current Capacity last updated by Dayanna Burciaga MA on 11/07/2023 2:12 PM IP Team always send full referral in [facility]. Thank you. [facility] [facility] ([facility]) Pending - Request Sent N/A [address] [facility] [phone] CHANTE Smiley * Stevie Liu MD - 05/21/2024 9:45 AM CDT [facility] Medicine Progress Note - Hospitalist Service [...] History of MRSA infection. -Recent admission at [facility] between 03/07-03/14/2024 for septic shock secondary to E. coli UTI with bacteremia, readmitted at [facility] on 03/21/2024 with severe sepsis and another admission at [facility] between 03/24-03/31 2024 -Presented here with [...] 01/14/2023] Atrial fibrillation not on anticoagulation. Hypertension CUSTOMER PROJECT MANAGER Lasix held on admission. Restarted on 05/12/2024 Continue CUSTOMER PROJECT MANAGER Toprol, switch to immediate release 25 mg twice daily with hold parameters. -CUSTOMER PROJECT MANAGER not on aspirin or statin. Defer further cardiac workup to outpatient. Hypokalemia. -Replace per protocol Obstructive sleep apnea -Uses BiPAP as outpt. Has chronic CO2 retention. -BiPAP per home settings. Rheumatoid arthritis -Continue on CUSTOMER PROJECT MANAGER on prednisone 10 mg daily. Chronic Anemia likely secondary to chronic disease. -Baseline hemoglobin 9-10 range. -Hemoglobin at around previous baseline. Incidental renal stones. CT - No hydronephrosis. Nonobstructive right renal pelvic stones including 13 mm right UPJ calculus. Recommend follow-up with urology as outpatient if symptomatic. Diabetes mellitus with a hemoglobin A1c of 6.6. -CUSTOMER PROJECT MANAGER not on meds. BS are 94 - [...] Chart documentation was completed, in part, with [employer] voice-recognition software. Even though reviewed, some grammatical, spelling, and word errors may remain. Stevie Liu MD Hospitalist Service [facility] Text Page 7AM-6PM Securely message with the [employer] Console (learn more here) Text page via [employer] Paging/Directory Interval History Patient complains of significant [...] tablet 1 tablet 1 tablet Oral Q12H [facility] (06/01) Peter Alfredo MD 1 tablet at [...] mg 500 mg Oral 4x Daily Janak Robldeo, WIL 500 mg at 05/21/24 09 metoprolol tartrate (LOPRESSOR) tablet 25 mg 25 mg Oral BID AlfredoPeter cesar MD 25 mg at 05/21/24 0918 multivitamin w/minerals (THERA-VIT-M) tablet 1 tablet 1 tablet Oral Daily AlfredoPeter cesar MD 1 tablet at 05/21/24 0918 [Held by provider] naproxen (NAPROSYN) tablet 250 mg 250 mg Oral Daily with breakfast Anna Fajardo MD polyethylene glycol (MIRALAX) Packet 17 g 17 g Oral Daily AlfredoPeter cesar MD 17 g at 05/21/24 09 predniSONE (DELTASONE) tablet 10 mg 10 mg Oral or NG Tube Daily AlfredoPeter cesar MD 10 mg at 05/21/24 0917 senna-docusate (SENOKOT-S/PERICOLACE) 8.6-50 MG per tablet [...] questions/paging, please contact the CRS office at [phone]. Janak Robledo PA-C Colorectal Physician [facility] [address] [address] T: [phone] F: [phone] CRS Staff Seen and examined Agree with above. Stoma functioning. Wounds look good. Tolerating diet. Will follow peripherally. Please call with questions. I performed a history and physical examination of the patient and discussed their management with the physician casting assistant. I reviewed the physician assistants note and agree with the documented findings and plan of care. Peter Alfredo MD [facility] Colorectal Surgeon [facility] [address], [address] [place] [address] T: [phone] F: [phone] Pager: [phone] [email or web address] * Mateo Henry, MEME - 05/21/2024 5:43 AM CDT Date & Time: 05/20/24, [id number] Surgery/POD#: POD2/3 diverting colostomy Hx: Chronic osteomyelitis, [...] frequently. 9. OK to take stairs. Supplies: MD2U New Image 2-pc system (up to 20 pouch changes/month) 1. Barrier: New Image CeraPlus 70mm soft convex cut-to-fit with tape - #[id number] (5/box = 2 box/month) 2a. Pouch: 70mm closed pouch, beige, with filter, 'quiet-wear' - #04446 (30/box = 2 box/month) and/or 2b. Pouch: 70mm drainable lock n roll, beige, with filter - #07551 (10/box = 1-2 box/month) 3. Ring: Alessia [...] 6. Odor eliminator & lubricant (optional) - #47187 (8oz bottle) or #62734 (8ml packets, 50 in abox) (1 as [...] Clinic room is on 1st floor in [facility] - check in at [employer] [facility] in [facility] Office phone # [phone] (Fri - Fri) - call for any questions or concerns * Izzy Marie RN - 05/20/2024 12:07 PM CDT Images from the original note were not included. [facility] Nurse Inpatient Assessment Consulted for: Colostomy, [...] Surgery Date: 05/18/24 Surgeon: Dr. Peter Alfredo [facility]: [facility] Pouching system in place on assessment [...] with turning Is patient still on a HEAD TURNING MACHINE OPERATOR? No Ostomy education assessment: Participant of teaching session today: patient and niece, who also recorded some of C education for pt's daughter Education completed today: [...] supplies after discharge , Ordered samples from hydrography teacher after gaining consent from patient/caregiver, Discussed how and when to make an outpatient [facility] nurse appointment after discharge, Prepared for discharge home with home care, and Discuss signs/symptoms of when to seek medical attention Preparation for discharge still needed: review of cares, review of supplies Pt support system on discharge: niece and daughter [facility] recommend home care? Yes Buttock assessment copied [...] areas Positioning Equipment: as needed Fluidized positioner (#[id number] or #[id number]- large) to help maintain side lying position. Chair positioning: Chair cushion (#[id number]) , Assist patient to reposition hourly, and [...] pouching plan: Pouching system: ostomy supplies pouches: [place] 70 FECAL (585368) ostomy supplies barrier: Alessia 70mm SOFT CONVEX (348660) Accessories used: WOC ostomy accessories: 2 Cera Barrier Ring (771018) Frequency of pouch changes: PRN leakage and [...] up for ostomy teaching after surgery Notify [facility] if wound(s) deteriorate. Nursing to notify the Provider(s) and re-consult the [facility] Nurse if new skin concern. DATA: Current [...] Izzy Marie RN CWOCN -Securely message with Crossfader ([facility]) Preferred -[facility] Office (messages checked periodically Mon-Fri 8a-4p) * Stevie Liu MD - 05/20/2024 11:08 AM CDT [facility] Medicine Progress Note - Hospitalist Service [...] History of MRSA infection. -Recent admission at [facility] between 03/07-03/14/2024 for septic shock secondary to E. coli UTI with bacteremia, readmitted at [facility] on 03/21/2024 with severe sepsis and another admission at [facility] between 03/24-03/31 2024 -Presented here with [...] OT evaluation Chronic pain on narcotics. Continue CUSTOMER PROJECT MANAGER Tylenol. Continue CUSTOMER PROJECT MANAGER gabapentin. Continue CUSTOMER PROJECT MANAGER as needed oxycodone, minimize use as able [...] 01/14/2023] Atrial fibrillation not on anticoagulation. Hypertension CUSTOMER PROJECT MANAGER Lasix held on admission. Restarted on 05/12/2024 Continue CUSTOMER PROJECT MANAGER Toprol, switch to immediate release 25 mg twice daily with hold parameters. -CUSTOMER PROJECT MANAGER not on aspirin or statin. Defer further cardiac workup to outpatient. Hypokalemia. -Replace per protocol Obstructive sleep apnea -Uses BiPAP as outpt. Has chronic CO2 retention. -BiPAP per home settings. Rheumatoid arthritis -Continue on CUSTOMER PROJECT MANAGER on prednisone 10 mg daily. Chronic Anemia likely secondary to chronic disease. -Baseline hemoglobin 9-10 range. -Hemoglobin at around previous baseline. Incidental renal stones. CT - No hydronephrosis. Nonobstructive right renal pelvic stones including 13 mm right UPJ calculus. Recommend follow-up with urology as outpatient if symptomatic. Diabetes mellitus with a hemoglobin A1c of 6.6. CUSTOMER PROJECT MANAGER not on meds. BS are 94 - [...] Chart documentation was completed, in part, with [employer] voice-recognition software. Even though reviewed, some grammatical, spelling, and word errors may remain. Stevie Liu MD Hospitalist Service [facility] Text Page 7AM-6PM Securely message with the [employer] (learn more here) Text page via [employer] Paging/Directory Interval History Endorses slight pain at [...] tablet 1 tablet 1 tablet Oral Q12H [facility] (06/01) Peter Alfredo MD 1 tablet at 05/20/24 0830 diclofenac (VOLTAREN) 1 % topical gel 4 g 4 g Topical TID Peter Alfredo MD 4 g at 05/20/24 0851 enoxaparin ANTICOAGULANT (LOVENOX) injection 40 mg 40 mg Subcutaneous Q24H Peter Alfredo MD 40 mg at 05/19/24 1335 furosemide (LASIX) tablet 40 mg 40 mg Oral Daily Peter Alfredo MD 40 mg at 05/20/24 0831 gabapentin (NEURONTIN) capsule 400 mg 400 mg Oral TID Peter Alfredo MD 400 mg at 05/20/24 0831 lactobacillus rhamnosus (GG) (CULTURELL) capsule 1 capsule 1 capsule Oral Daily AlfredoPeter cesar MD1 capsule at 05/20/24 0831 Lidocaine (LIDOCARE) 4 % Patch 3 patch 3 patch Transdermal Q24h Peter Alfredo MD 3 patch at 05/19/24 1454 methocarbamol (ROBAXIN) tablet 500 mg 500 mg Oral 4x Daily Janak Robledo PA-C 500 mg at 05/20/24 1037 metoprolol tartrate (LOPRESSOR) tablet 25 mg 25 mg Oral BID Peter Alfredo MD 25 mg at 05/20/24 0830 multivitamin w/minerals (THERA-VIT-M) tablet 1 tablet 1 tablet Oral Daily AlfredoPeter cesar MD 1 tablet at 05/20/24 0851 [Held by provider] naproxen (NAPROSYN) tablet 250 mg 250 mg Oral Daily with breakfast Anna Fajardo MD polyethylene glycol (MIRALAX) Packet 17 g 17 g Oral Daily AlfredoPeter cesar MD 17 g at 05/20/24 0851 predniSONE (DELTASONE) tablet 10 mg 10 mg Oral or NG Tube Daily AlfredoPeter cesar MD 10 mg at 05/20/24 0830 senna-docusate [...] nurse reports anticipated discharge is tomorrow. Called [facility] ([phone]) to update on anticipated discharge tomorrow; they acknowledged and appreciate update on final plan tomorrow with discharge orders to be faxed to them.Can leave a voice mail message as checked frequently. Jamila Bowser, RN Inpatient Float [employer] [facility] * Janak Robledo PA-C - 05/20/2024 [...] questions/paging, please contact the CRS office at [phone]. Janak Robledo PA-C Colorectal Physician [facility] [address] [place] [address] [address] [address] T: [phone] F: [phone] * Mateo Henry RN - 05/20/2024 6:26 [...] from the original note were not included. [facility] WO Nurse Inpatient Assessment Consulted for: [...] 4 pressure injury wounds Surgery Date: 05/18 Surgeon:[facility]: Zaynab Pouching system in place on assessment today: Alessia one piece and clamp Pouch barrier status: intact Pouch last changed/wear time: applied in OR Reason for pouch change today: pouch not changed today Effectiveness of current pouching/ supply plan: Waiting for peristomal edema to decrease Change made with ostomy management today: No Pouching system placed today: [place] remains Supplies: discussed with patient Last photo: [...] Pain: denies Is patient still on a HEAD TURNING MACHINE OPERATOR? No Ostomy education assessment: Participant of teaching [...] supplies after discharge , Ordered samples from hydrography teacher after gaining consent from patient/caregiver, and Prepared for discharge home with home care Preparation for discharge still needed: Placed prescription recommendations in discharge navigator for MD to sign, Ensured patient has extra supplies for discharge, Discussed how and when to make an outpatient [facility] nurse appointment after discharge, Prepared for discharge home with home care, and Discuss signs/symptoms of when to seek medical attention Pt support system on discharge: niece [facility] recommend home care? Yes Buttock assessment copied [...] areas Positioning Equipment: as needed Fluidized positioner (#[id number] or #[id number]- large) to help maintain side lying position. Chair positioning: Chair cushion (#[id number]) , Assist patient to reposition hourly, and [...] EVERY shift ~ Supplies used ~ Pouch: [place] 70 FECAL (317071) ~ Flange/Barrier/Wafer: Alessia 70mm FLAT (691175) ~ Accessories: 2 Adapt Barrier Ring (776770) Question Answer Comment Type of Ostomy Colostomy [...] and Shear: 1-->problem Brandon Score: 12 Johanny JUSTICEOCN 1st choice: Securely message with [employer]ader ([facility]) (2nd option: [facility] Office , messages checked periodically Mon- Fri [...] them as she's only been getting the tristanian vanilla flavor and would like to rotate the chocolate flavor as well. She had no questions about her low fiber diet while at [facility] but was interested in receiving more low fiber info for when she discharges - Flowsheets show a fair appetite and 1-3 intakes/day of 75-100%. ASSESSED NUTRITION NEEDS: Dosing Weight 59.6 kg (admit 05/10) Estimated Energy Needs: 1936-5057 kcals (25-30 Kcal/Kg) Justification: maintenance, wound healing [...] Liu MD - 05/19/2024 10:01 AM CDT [facility] Medicine Progress Note - Hospitalist Service [...] History of MRSA infection. -Recent admission at [facility] between 03/07-03/14/2024 for septic shock secondary to E. coli UTI with bacteremia, readmitted at [facility] on 03/21/2024 with severe sepsis and another admission at [facility] between 03/24-03/31 2024 -Presented here with [...] OT evaluation Chronic pain on narcotics. Continue CUSTOMER PROJECT MANAGER Tylenol. Continue CUSTOMER PROJECT MANAGER gabapentin. Continue CUSTOMER PROJECT MANAGER as needed oxycodone, minimize use as able [...] 01/14/2023] Atrial fibrillation not on anticoagulation. Hypertension CUSTOMER PROJECT MANAGER Lasix held on admission. Restarted on 05/12/2024 Continue CUSTOMER PROJECT MANAGER Toprol, switch to immediate release 25 mg twice daily with hold parameters. -CUSTOMER PROJECT MANAGER not on aspirin or statin. Defer further cardiac workup to outpatient. Hypokalemia. -Replace per protocol Obstructive sleep apnea -Uses BiPAP as outpt. Has chronic CO2 retention. -BiPAP per home settings. Rheumatoid arthritis -Continue on CUSTOMER PROJECT MANAGER on prednisone 10 mg daily. Chronic Anemia likely secondary to chronic disease. -Baseline hemoglobin 9-10 range. -Hemoglobin at around previous baseline. Incidental renal stones. CT - No hydronephrosis. Nonobstructive right renal pelvic stones including 13 mm right UPJ calculus. Recommend follow-up with urology as outpatient if symptomatic. Diabetes mellitus with a hemoglobin A1c of 6.6. CUSTOMER PROJECT MANAGER not on meds. BS are 94 - [...] Chart documentation was completed, in part, with [employer] voice-recognition software. Even though reviewed, some grammatical, spelling, and word errors may remain. Stevie Liu MD Hospitalist Service [facility] Text Page 7AM-6PM Securely message with the Descomplica Console (learn more here) Text page via [employer] Paging/Directory Interval History Patient underwent diverting colostomy [...] tablet 1 tablet 1 tablet Oral Q12H [facility] (06/01) Peter Alfredo MD 1 tablet at 05/19/24 0826 diclofenac (VOLTAREN) 1 % topical gel 4 g 4 g Topical TID AlfredoPeter cesar MD 4 g at 05/18/24 0923 doxycycline hyclate (VIBRAMYCIN) capsule 100 mg 100 mg Oral Q12H [facility] (06/01) Peter Alfredo MD 100 mg at 05/19/24 0826 enoxaparin ANTICOAGULANT (LOVENOX) injection 40 mg 40 mg Subcutaneous Q24H Peter Alfredo MD furosemide (LASIX) tablet 40 mg 40 mg Oral Daily AlfredoPeter cesar MD 40 mg at 05/19/24 0826 gabapentin (NEURONTIN) capsule 400 mg 400 mg Oral TID AlfredoPeter cesar MD 400 mg at 05/19/24 08 [Held by provider] heparin ANTICOAGULANT injection 5,000 [...] questions/paging, please contact the CRS office at [phone]. Sanchez Sparks MD, MS Fellow, Colon & Rectal Surgery [facility] 05/19/2024 7:23 AM CRS Staff Agree with above Peter Alfredo MD [facility] Colorectal Surgeon [facility] [address], [address] [place] [address] T: [phone] F: [phone] Pager: [phone] [email or web address] * Peter Alfredo MD - 05/18/2024 [...] Colorectal Surgeon [facility] [address], [address] [place] [address] T: [phone] F: [phone] Pager: [phone] [email or web address] * Johanny Harrison RN - 05/18/2024 3:03 PM CDT Images from the original note were not included. [facility] Nurse Inpatient Assessment Consulted for: 05/16 [...] areas Positioning Equipment: as needed Fluidized positioner (#[id number] or #[id number]) to help maintain side lying position. Chair positioning: Chair cushion (#[id number]) , Assist patient to reposition hourly, and [...] of care with: Patient, Family, and Nurse [facility] nurse follow-up plan: weekly for wound follow up assessment, daily follow up for ostomy teaching after surgery Notify [facility] if wound(s) deteriorate. Nursing to notify the Provider(s) and re-consult the [facility] Nurse if new skin concern. DATA: Current [...] Johanny CWOCN 1st choice: Securely message with [employer] ([facility] [employer]) (2nd option: [facility] Office , messages checked periodically Mon- Fri [...] Fajardo MD - 05/18/2024 1:42 PM CDT [facility] Medicine Progress Note - Hospitalist Service [...] for today, 05/18/24 . recent hospitalizations: --Admitted [facility] on 03/06 -03/14/2024 for septic shock secondary to E. coli UTI with bacteremia, stage IV right ischial tuberosity decubitus ulcer. --Readmitted at [facility] on 03/21/[address] showed a sacral decubitus ulcer extending to the sacrum, right deep gluteal soft tissue tunneling and lower gluteal/upper thigh ulceration extending to the ischial tuberosity with evidence of chronic osteomyelitis. General surgery, infectious disease followed and recommended transfer to tertiary center. ---Was admitted at [facility] 03/24 to 03/31/2024. General surgery, infectious [...] OT evaluation Chronic pain on narcotics. Continue CUSTOMER PROJECT MANAGER Tylenol. Continue CUSTOMER PROJECT MANAGER gabapentin. Continue CUSTOMER PROJECT MANAGER as needed oxycodone, minimize use as able [...] 01/14/2023] Atrial fibrillation not on anticoagulation. Hypertension CUSTOMER PROJECT MANAGER Lasix held on admission. Restarted on 05/12/2024 Continue CUSTOMER PROJECT MANAGER Toprol, switch to immediate release 25 mg twice daily with hold parameters. ---- CUSTOMER PROJECT MANAGER not on aspirin or statin. Defer further cardiac workup to outpatient. Telemetry monitoring. Intake output monitoring, daily weights. Hypokalemia. Potassium replacement ordered Potassium normal at 4.1 Obstructive sleep apnea Uses BiPAP as outpt. Has chronic CO2 retention. Resume BiPAP per home settings. Rheumatoid arthritis Continue on CUSTOMER PROJECT MANAGER on prednisone 10 mg daily. Chronic Anemia likely secondary to chronic disease. Baseline hemoglobin 9-10 range. Hemoglobin at around previous baseline. Incidental renal stones. CT - No hydronephrosis. Nonobstructive right renal pelvic stones including 13 mm right UPJ calculus. Recommend follow-up with urology as outpatient if symptomatic. Diabetes mellitus with a hemoglobin A1c of 6.6. CUSTOMER PROJECT MANAGER not on meds. BS are 94 - [...] ready . Anna Fajardo MD Hospitalist Service [facility] Securely message with Crossfader (more info) Text page via [employer] Paging/Directory Interval History Has been doing Incentive spirometry in anticipation of surgery Physical Exam Vital Signs: Temp: 98.2 ??F (36.8 ??C) Temp src: Oral BP: 125/48 Pulse: 82 Resp: 16 SpO2: 95 % O2 Device: None (Room air) Weight: 147 lbs 11.33 oz Constitutional:Awake, alert, cooperative, no apparent distress sitting up in bed, eating tristanian toast Respiratory: Clear to auscultation bilaterally, no [...] teaching - Pre-op labs ordered - Hold [facility] - Patient would like to change her code status to DNR/ok for intubation (only if absolutely necessary) Discussed with Dr. Alfredo. For questions/paging, please contact the CRS office at [phone]. Janak Robledo PA-C Colorectal Physician [facility] [employer] [address] [place] [address] [place] [address] T: [phone] F: [phone] * Rosmery Roque RN - 05/17/2024 8:45 [...] questions/paging, please contact the CRS office at [phone]. Janak Robledo PA-C Colorectal Physician [employer] [facility] [address] [place] [address] T: [phone] F: [phone] CRS Staff Seen and examined Agree with above. Will update anesthesia on difficult extubation Orders written for bowel prep. Can have clear liquids in AM. No IV access. Will have vascular access team place picc I performed a history and physical examination of the patient and discussed their management with the physician casting assistant. I reviewed the physician assistants note and agree with the documented findings and plan of care. Peter Alfredo MD [facility] Colorectal Surgeon [facility] [address], [address] [place] [address] T: [phone] F: [phone] Pager: [phone] [email or web address] * Anna Fajardo MD - 05/17/2024 9:06 AM CDT [facility] Medicine Progress Note - Hospitalist Service [...] reconsider the recommendation for diverting colostomy. --Admitted [facility] on 03/06 -03/14/2024 for septic shock secondary to E. coli UTI with bacteremia, stage IV right ischial tuberosity decubitus ulcer. --Readmitted at [facility] on 03/21/[address] showed a sacral decubitus ulcer extending to the sacrum, right deep gluteal soft tissue tunneling and lower gluteal/upper thigh ulceration extending to the ischial tuberosity with evidence of chronic osteomyelitis. General surgery, infectious disease followed and recommended transfer to tertiary center. ---Was admitted at [facility] 03/24 to 03/31/2024. General surgery, infectious [...] difficult extubation during [facility], unable to [...] OT evaluation Chronic pain on narcotics. Continue CUSTOMER PROJECT MANAGER Tylenol. Continue CUSTOMER PROJECT MANAGER gabapentin. Continue CUSTOMER PROJECT MANAGER as needed oxycodone, minimize use as able [...] atelectasis, effusions, or pneumothorax. Moderate atherosclerotic disease. CUSTOMER PROJECT MANAGER Lasix held on admission. Restarted on 05/12/2024 Continue CUSTOMER PROJECT MANAGER Toprol, switch to immediate release 25 mg twice daily with hold parameters. ---- CUSTOMER PROJECT MANAGER not on aspirin or statin. Defer further cardiac workup to outpatient. Telemetry monitoring. Intake output monitoring, daily weights. Hypokalemia. Potassium replacement ordered Potassium normal at 4.1 Obstructive sleep apnea Uses BiPAP as outpt. Has chronic CO2 retention. Resume BiPAP per home settings. Rheumatoid arthritis Continue on CUSTOMER PROJECT MANAGER on prednisone 10 mg daily. Chronic Anemia likely secondary to chronic disease. Baseline hemoglobin 9-10 range. Hemoglobin at around previous baseline. Incidental renal stones. CT - No hydronephrosis. Nonobstructive right renal pelvic stones including 13 mm right UPJ calculus. Recommend follow-up with urology as outpatient if symptomatic. Diabetes mellitus with a hemoglobin A1c of 6.6. CUSTOMER PROJECT MANAGER not on meds. BS are 94 - [...] 2-4 Days Anna Fajardo MD Hospitalist Service [facility] Securely message with Crossfader (more info) Text page via [facility] Paging/Directory Interval History No fevers. Good appetite. Doing bedside spirometry exercises [id number] independently Physical Exam Vital Signs: Temp: 98 ??F (36.7 ??C) Temp src: Oral BP: 124/49 Pulse: 90 Resp: 16 SpO2: 98 % O2 Device: None (Room air) Weight: 152 lbs 15.99 oz Constitutional:Awake, alert, cooperative, no apparent distress sitting up in bed, eating tristanian toast Respiratory: Clear to auscultation bilaterally, no [...] Haile PA-C - 05/15/2024 3:34 PM CDT [facility] General Surgery Daily Progress Note Assessment [...] if questions or concerns. Interval History: Prerna aMjor is seen on surgical rounds with daughter [...] page on-call surgeon after 4pm Office number: [phone] 35 minutes spent on date of the encounter doing patient visit, chart review, and documentation. Associated attestation - Ras Hyde MD - 05/16/2024 6:28 AM CDT Physician Attestation I saw and evaluated Prerna Major as part of a shared QUALITY MEASUREMENT SPECIALIST/PA visit. I personally reviewed the vital signs, [...] I saw the patient): 05/15/24 * Franca Preez RN - 05/15/2024 2:40 PM CDT Notification Notified Person: MD Notified Person Name: Anna Fajardo Notification Date/Time: 132805/15/2024 Notification Interaction: Vocjose miguel Purpose of Notification: Stool in pt wound. Request surgical consult Orders Received: Provider met with pt. Cancelled discharge. Surgical consult placed. Comments: * Franca Perez RN - 05/15/2024 2:39 PM CDT Notified provider [...] Fajardo MD - 05/15/2024 2:13 PM CDT [facility] Medicine Progress Note - Hospitalist Service [...] reconsider the recommendation for diverting colostomy. --Admitted [facility] on 03/06 -03/14/2024 for septic shock secondary to E. coli UTI with bacteremia, stage IV right ischial tuberosity decubitus ulcer. --Readmitted at [facility] on 03/21/[address] showed a sacral decubitus ulcer extending to the sacrum, right deep gluteal soft tissue tunneling and lower gluteal/upper thigh ulceration extending to the ischial tuberosity with evidence of chronic osteomyelitis. General surgery, infectious disease followed and recommended transfer to tertiary center. ---Was admitted at [facility] 03/24 to 03/31/2024. General surgery, infectious [...] OT evaluation Chronic pain on narcotics. Continue CUSTOMER PROJECT MANAGER Tylenol. Continue CUSTOMER PROJECT MANAGER gabapentin. Continue CUSTOMER PROJECT MANAGER as needed oxycodone, minimize use as able [...] atelectasis, effusions, or pneumothorax. Moderate atherosclerotic disease. CUSTOMER PROJECT MANAGER Lasix held on admission. Restarted on 05/12/2024 Continue CUSTOMER PROJECT MANAGER Toprol, switch to immediate release 25 mg twice daily with hold parameters. ---- CUSTOMER PROJECT MANAGER not on aspirin or statin. Defer further cardiac workup to outpatient. Telemetry monitoring. Intake output monitoring, daily weights. Hypokalemia. Potassium replacement ordered Potassium normal at 4.1 Obstructive sleep apnea Uses BiPAP as outpt. Has chronic CO2 retention. Resume BiPAP per home settings. Rheumatoid arthritis Continue on CUSTOMER PROJECT MANAGER on prednisone 10 mg daily. Chronic Anemia likely secondary to chronic disease. Baseline hemoglobin 9-10 range. Hemoglobin at around previous baseline. Incidental renal stones. CT - No hydronephrosis. Nonobstructive right renal pelvic stones including 13 mm right UPJ calculus. Recommend follow-up with urology as outpatient if symptomatic. Diabetes mellitus with a hemoglobin A1c of 6.6. CUSTOMER PROJECT MANAGER not on meds. Monitor blood sugars , [...] surgical re-consult Anna Fajardo MD Hospitalist Service [facility] Securely message with [employer]ft[employer] miguel (more info) Text page via [facility] Paging/Directory Interval History Was going to [...] Coates RN - 05/14/2024 6:43 PM CDT [id number] Orientation: AOx4 Aggression Stop Light: green Activity: [...] Fajardo MD - 05/14/2024 3:58 PM CDT [facility] Medicine Progress Note - Hospitalist Service Date of Admission: 05/10/2024 Assessment & Plan Prerna Major is a 78 year old female with medical history of history of transverse myelitis, paraplegia, neurogenic bladder with chronic indwelling Cristobal catheter, decubitus ulcers with chronic osteomyelitis, RA on chronic prednisone therapy, HIU, HFpEF, atrial fibrillation, hypertension, gastric ulcer presented to the ED with weakness. --Admitted [facility] on 03/06 -03/14/2024 for septic shock secondary to E. coli UTI with bacteremia, stage IV right ischial tuberosity decubitus ulcer. --Readmitted at [facility] on 03/21/[address] showed a sacral decubitus ulcer extending to the sacrum, right deep gluteal soft tissue tunneling and lower gluteal/upper thigh ulceration extending to the ischial tuberosity with evidence of chronic osteomyelitis. General surgery, infectious disease followed and recommended transfer to tertiary center. ---Was admitted at [facility] 03/24 to 03/31/2024. General surgery, infectious [...] OT evaluation Chronic pain on narcotics. Continue CUSTOMER PROJECT MANAGER Tylenol. Continue CUSTOMER PROJECT MANAGER gabapentin. Continue CUSTOMER PROJECT MANAGER as needed oxycodone, minimize use as able [...] atelectasis, effusions, or pneumothorax. Moderate atherosclerotic disease. CUSTOMER PROJECT MANAGER Lasix held on admission. Restarted on 05/12/2024 Continue CUSTOMER PROJECT MANAGER Toprol, switch to immediate release 25 mg twice daily with hold parameters. ---- CUSTOMER PROJECT MANAGER not on aspirin or statin. Defer further cardiac workup to outpatient. Telemetry monitoring. Intake output monitoring, daily weights. Hypokalemia. Potassium replacement ordered Potassium normal at 4.1 Obstructive sleep apnea Uses BiPAP as outpt. Has chronic CO2 retention. Resume BiPAP per home settings. Rheumatoid arthritis Continue on CUSTOMER PROJECT MANAGER on prednisone 10 mg daily. Chronic Anemia likely secondary to chronic disease. Baseline hemoglobin 9-10 range. Hemoglobin at around previous baseline. Incidental renal stones. CT - No hydronephrosis. Nonobstructive right renal pelvic stones including 13 mm right UPJ calculus. Recommend follow-up with urology as outpatient if symptomatic. Diabetes mellitus with a hemoglobin A1c of 6.6. CUSTOMER PROJECT MANAGER not on meds. Monitor blood sugars , [...] pain control Anna Fajardo MD Hospitalist Service [facility] Securely message with [employer]ader (more info) Text page via [employer] Paging/Directory Interval History Pain control improving. Complains [...] 59.6 kg (admit 05/10) Estimated Energy Needs: 4291-7099 kcals (25-30 Kcal/Kg) Justification: maintenance, wound healing Estimated Protein Needs: 78-89 grams protein (1.3-1.5 g pro/Kg) Justification: wound healing Estimated Fluid Needs: 4051-2414 mL (1 mL/Kcal) Justification: maintenance NEW FINDINGS: 05/11: WOCN Consulted for: Wound acute on chronic osteomyelitis Summary: patient with POA wounds to buttock x3, Stage 4 BM x4 past 24 hrs (Dulcoax supp given 7/31, miralax/senokot held) 05/10: Culturell started Wt is [...] 4:53 PM CDT Patient's daughter discussed with [facility] nurse and answered question. Patient would like to avoid any loop colostomy at this time. Agree with current wound management care. No surgical intervention needed. Will sign off. Please free free to contact again with any further questions or concerns. Yaritza Hurtado MD FACS Trauma/Emergency/Critical Care Surgery * Leela Degroot, AMIRAH EXERCISE INSTRUCT - 05/13/2024 3:46 PM CDT Images from the original note were not included. [facility] ACUTE PAIN SERVICE [facility] Daily PAIN Progress Note Securely message with the Descomplica Console (learn more here) (When I saw [...] 650 mg Oral Q6H Leela Degroot APRN EXERCISE INSTRUCT 650 mg at 05/13/24 0952 amoxicillin-clavulanate (AUGMENTIN) 875-125 MG per tablet 1 tablet 1 tablet Oral Q12H [facility] (06/01) Adeline Varela MD diclofenac (VOLTAREN) 1 % topical gel 4 g 4 g Topical TID Leela Degroot APRN EXERCISE INSTRUCT 4 g at 05/13/24 1005 doxycycline hyclate (VIBRAMYCIN) capsule 100 mg 100 mg Oral Q12H [facility] (06/01) Adeline Varela MD furosemide (LASIX) tablet 40 mg 40 mg Oral Daily Noemí Bhat MD 40 mg at 05/13/24 0953 gabapentin (NEURONTIN) capsule 400 mg 400 mg Oral TID Leela Degroot APRN EXERCISE INSTRUCT 400 mg at 05/13/24 0953 heparin ANTICOAGULANT injection 5,000 Units 5,000 Units Subcutaneous Q8H Ambar Joseph MD 5,000 Units at 05/13/24 1405 lactobacillus rhamnosus (GG) (CULTURELL) capsule 1 capsule 1 capsule Oral Daily Ambar Joseph MD 1 capsule at 05/13/24 0953 Lidocaine (LIDOCARE) 4 % Patch 3 patch 3 patch Transdermal Q24h Leela Degroot APRN EXERCISE INSTRUCT 3 patch at 05/12/24 2212 metoprolol tartrate (LOPRESSOR) tablet 25 mg 25 mg Oral BID Ambar Joseph MD 25 mg at 954 multivitamin w/minerals (THERA-VIT-M) tablet 1 tablet 1 tablet Oral Daily Noemí Bhat MD 1 tablet at 05/13/24 0951 naproxen (NAPROSYN) tablet 250 mg 250 mg Oral TID w/meals Leela Degroot APRN EXERCISE INSTRUCT 250 mg at 05/13/24 1536 polyethylene glycol [...] ? Yes Leela Degroot APRN CNP, PGMT-BC, [facility] Friday-Friday 8:00-4:30 No weekend coverage contact change house attendant Securely message with the Descomplica Console (learn more here) * Jenn Junior RN - 05/13/2024 2:59 PM CDT VAT consult placed for IV placement. Patient declined IV at this time. RN caring for patient was updated. * Adeline Varela MD - 05/13/2024 1:44 PM CDT Images from the original note were not included. [facility] Infectious Disease Progress Note Date of [...] bacteremia with septic shock requiring hospitalization at [facility]02/2024 -Chronic medical conditions -HUI, HFpEF, atrial fibrillation, [...] 650 mg Oral Q6H Leela Degroot APRN EXERCISE INSTRUCT 650 mg at 05/13/24 0952 cefTRIAXone (ROCEPHIN) [...] 4 g Topical TID Leela Degroot APRN EXERCISE INSTRUCT 4 g at 05/13/24 1005 furosemide (LASIX) tablet 40 mg 40 mg Oral Daily Noemí Bhat MD 40 mg at 05/13/24 0953 gabapentin (NEURONTIN) capsule 400 mg 400 mg Oral TID Leela Degroot APRN EXERCISE INSTRUCT 400 mg at 05/13/24 0953 heparin ANTICOAGULANT injection 5,000 Units 5,000 Units Subcutaneous Q8H Ambar Joseph MD 5,000 Units at 05/13/24 0633 lactobacillus rhamnosus (GG) (CULTURELL) capsule 1 capsule 1 capsule Oral Daily Ambar Joseph MD 1 capsule at 05/13/24 0953 Lidocaine (LIDOCARE) 4 % Patch 3 patch 3 patch Transdermal Q24h Leela Degroot APRN EXERCISE INSTRUCT 3 patch at 05/12/24 2212 metoprolol tartrate [...] mg Oral TID w/meals Leela Degroot APRN EXERCISE INSTRUCT 250 mg at 05/13/24 0954 polyethylene glycol [...] Islas MD - 05/13/2024 1:03 PM CDT [facility] Hospitalist Progress Note Assessment & Plan Prerna Major is a 78 year old female with medical history of history of transverse myelitis, paraplegia, neurogenic bladder with chronic indwelling Cristobal catheter, decubitus ulcers with chronic osteomyelitis, RA on chronic prednisone therapy, HUI, HFpEF, atrial fibrillation, hypertension, gastric ulcer presented to the ED with weakness. --Admitted [facility] on 03/06 -03/14/2024 for septic shock secondary to E. coli UTI with bacteremia, stage IV right ischial tuberosity decubitus ulcer. --Readmitted at [facility] on 03/21/[address] showed a sacral decubitus ulcer extending to the sacrum, right deep gluteal soft tissue tunneling and lower gluteal/upper thigh ulceration extending to the ischial tuberosity with evidence of chronic osteomyelitis. General surgery, infectious disease followed and recommended transfer to tertiary center. ---Was admitted at [facility] 03/24 to 03/31/2024. General surgery, infectious [...] --Address medical issues as discussed above. Continue CUSTOMER PROJECT MANAGER Tylenol. Continue CUSTOMER PROJECT MANAGER gabapentin. Continue CUSTOMER PROJECT MANAGER as needed oxycodone, minimize use as able [...] atelectasis, effusions, or pneumothorax. Moderate atherosclerotic disease. CUSTOMER PROJECT MANAGER Lasix held on admission. Restarted on 05/12/2024 Continue CUSTOMER PROJECT MANAGER Toprol, switch to immediate release 25 mg twice daily with hold parameters. ---- CUSTOMER PROJECT MANAGER not on aspirin or statin. Defer further cardiac workup to outpatient. Telemetry monitoring. Intake output monitoring, daily weights. Hypokalemia. Potassium replacement ordered , continue IV fluids normal saline with KCl. Potassium normal at 4.1 Obstructive sleep apnea Uses BiPAP as outpt. Has chronic CO2 retention. Resume BiPAP per home settings. Rheumatoid arthritis Continue on CUSTOMER PROJECT MANAGER on prednisone 10 mg daily. Chronic Anemia [...] if elevated will consider sliding scale insulin. CUSTOMER PROJECT MANAGER not on meds. Age-appropriate health maintenance as [...] 650 mg Oral Q6H Leela Degroot APRN EXERCISE INSTRUCT 650 mg at 05/13/24 0952 cefTRIAXone (ROCEPHIN) [...] 4 g Topical TID Leela Degroot APRN EXERCISE INSTRUCT 4 g at 05/13/24 1005 furosemide (LASIX) tablet 40 mg 40 mg Oral Daily Noemí Bhat MD 40 mg at 05/13/24 0953 gabapentin (NEURONTIN) capsule 400 mg 400 mg Oral TID Leela Degroot APRN EXERCISE INSTRUCT 400 mg at 05/13/24 0953 heparin ANTICOAGULANT injection 5,000 Units 5,000 Units Subcutaneous Q8H Amabr Joseph MD 5,000 Units at 05/13/24 0633 lactobacillus rhamnosus (GG) (CULTURELL) capsule 1 capsule 1 capsule Oral Daily Ambar Joseph MD 1 capsule at 05/13/24 0953 Lidocaine (LIDOCARE) 4 % Patch 3 patch 3 patch Transdermal Q24h Leela Degroot APRN EXERCISE INSTRUCT 3 patch at 05/12/24 2212 metoprolol tartrate [...] mg Oral TID w/meals Leela Degroot APRN EXERCISE INSTRUCT 250 mg at 05/13/24 0954 polyethylene glycol [...] with the patient's daughter. Yaritza Hurtado MD [facility] General Surgery * Noemí Bhat MD - 05/12/2024 12:34 PM CDT [facility] Medicine Progress Note - Hospitalist Service Date of Admission: 05/10/2024 Assessment & Plan Prerna Major is a 78 year old female with medical history of history of transverse myelitis, paraplegia, neurogenic bladder with chronic indwelling Cristobal catheter, decubitus ulcers with chronic osteomyelitis, RA on chronic prednisone therapy, HUI, HFpEF, atrial fibrillation, hypertension, gastric ulcer presented to the ED with weakness. --Admitted [facility] on 03/06 -03/14/2024 for septic shock secondary to E. coli UTI with bacteremia, stage IV right ischial tuberosity decubitus ulcer. --Readmitted at [facility] on 03/21/[address] showed a sacral decubitus ulcer extending to the sacrum, right deep gluteal soft tissue tunneling and lower gluteal/upper thigh ulceration extending to the ischial tuberosity with evidence of chronic osteomyelitis. General surgery, infectious disease followed and recommended transfer to tertiary center. ---Was admitted at [facility] 03/24 to 03/31/2024. General surgery, infectious [...] --Address medical issues as discussed above. Continue CUSTOMER PROJECT MANAGER Tylenol. Continue CUSTOMER PROJECT MANAGER gabapentin. Continue CUSTOMER PROJECT MANAGER as needed oxycodone, minimize use as able [...] atelectasis, effusions, or pneumothorax. Moderate atherosclerotic disease. CUSTOMER PROJECT MANAGER Lasix held on admission. Restarted on 05/12/2024 Continue CUSTOMER PROJECT MANAGER Toprol, switch to immediate release 25 mg twice daily with hold parameters. ---- CUSTOMER PROJECT MANAGER not on aspirin or statin. Defer further cardiac workup to outpatient. Intake output monitoring, daily weights. Hypokalemia. Potassium replacement ordered , continue IV fluids normal saline with KCl. Potassium normal at 4.1 Obstructive sleep apnea Uses BiPAP as outpt. Has chronic CO2 retention. Resume BiPAP per home settings. Rheumatoid arthritis Continue on CUSTOMER PROJECT MANAGER on prednisone 10 mg daily. Chronic Anemia [...] if elevated will consider sliding scale insulin. CUSTOMER PROJECT MANAGER not on meds. Age-appropriate health maintenance as [...] and stable Noemí Bhat MD Hospitalist Service [facility] Securely message with Crossfader (more info) Text page via [facility] Paging/Directory Interval History Chart reviewed, discussed [...] Getting wound cares per bedside RN and application lead. Bilateral lower extremities are atrophic with history of paraplegia Psychiatry; calm and cooperative, pleasant Medical Decision Making Data * Noemí Bhat MD - 05/11/2024 1:22 PM CDT [facility] Medicine Progress Note - Hospitalist Service Date of Admission: 05/10/2024 Assessment & Plan Prerna Major is a 78 year old female with medical history of history of transverse myelitis, paraplegia, neurogenic bladder with chronic indwelling Cristobal catheter, decubitus ulcers with chronic osteomyelitis, RA on chronic prednisone therapy, HUI, HFpEF, atrial fibrillation, hypertension, gastric ulcer presented to the ED with weakness. --Admitted [facility] on 03/06 -03/14/2024 for septic shock secondary to E. coli UTI with bacteremia, stage IV right ischial tuberosity decubitus ulcer. --Readmitted at [facility] on 03/21/[address] showed a sacral decubitus ulcer extending to the sacrum, right deep gluteal soft tissue tunneling and lower gluteal/upper thigh ulceration extending to the ischial tuberosity with evidence of chronic osteomyelitis. General surgery, infectious disease followed and recommended transfer to tertiary center. ---Was admitted at [facility] 03/24 to 03/31/2024. General surgery, infectious [...] --Address medical issues as discussed above. Continue CUSTOMER PROJECT MANAGER Tylenol. Continue CUSTOMER PROJECT MANAGER gabapentin. Continue CUSTOMER PROJECT MANAGER as needed oxycodone, minimize use as able [...] effusions, or pneumothorax. Moderate atherosclerotic disease. Hold CUSTOMER PROJECT MANAGER Lasix in the setting of sepsis, fluid resuscitation. Continue CUSTOMER PROJECT MANAGER Toprol, switch to immediate release 25 mg twice daily with hold parameters. ---- CUSTOMER PROJECT MANAGER not on aspirin or statin. Defer further cardiac workup to outpatient. Telemetry monitoring. Intake output monitoring, daily weights. Hypokalemia. Potassium replacement ordered , continue IV fluids normal saline with KCl. Potassium normal at 4.1 Obstructive sleep apnea Uses BiPAP as outpt. Has chronic CO2 retention. Resume BiPAP per home settings. Rheumatoid arthritis Continue on CUSTOMER PROJECT MANAGER on prednisone 10 mg daily. Chronic Anemia [...] if elevated will consider sliding scale insulin. CUSTOMER PROJECT MANAGER not on meds. Age-appropriate health maintenance as [...] and stable Noemí Bhat MD Hospitalist Service [facility] Securely message with Dimitry (more info) Text page via [facility] Paging/Directory Interval History Chart reviewed, discussed with bedside RN and application lead Patient resting comfortably in bed complains of [...] Skin: Decubitus ulcers not examined by me. associate professor of church music dressed the wounds just recently Psychiatry; calm and cooperative, pleasant Medical Decision Making Data documented in this encounter H&P Notes * Ambar Joseph MD - 05/10/2024 5:58 PM CDT [facility] History and Physical Hospitalist Prerna Major Age: [...] presented to the ED with weakness. --Admitted [facility] on 03/06 -03/14/2024 for septic shock secondary to E. coli UTI with bacteremia, stage IV right ischial tuberosity decubitus ulcer. --Readmitted at [facility] on 03/21/[address] showed a sacral decubitus ulcer extending to the sacrum, right deep gluteal soft tissue tunneling and lower gluteal/upper thigh ulceration extending to the ischial tuberosity with evidence of chronic osteomyelitis. General surgery, infectious disease followed and recommended transfer to tertiary center. ---Was admitted at [facility] 03/24 to 03/31/2024. General surgery, infectious [...] --Address medical issues as discussed above. Continue CUSTOMER PROJECT MANAGER Tylenol. Continue CUSTOMER PROJECT MANAGER gabapentin. Continue CUSTOMER PROJECT MANAGER as needed oxycodone, minimize use as able [...] effusions, or pneumothorax. Moderate atherosclerotic disease. Hold CUSTOMER PROJECT MANAGER Lasix in the setting of sepsis, fluid resuscitation. Continue CUSTOMER PROJECT MANAGER Toprol, switch to immediate release 25 mg twice daily with hold parameters. ---- CUSTOMER PROJECT MANAGER not on aspirin or statin. Defer further cardiac workup to outpatient. Telemetry monitoring. Intake output monitoring, daily weights. Hypokalemia. Potassium replacement, continue IV fluids normal saline with KCl. Recheck potassium in AM. Obstructive sleep apnea Uses BiPAP as outpt. Has chronic CO2 retention. Resume BiPAP per home settings. Rheumatoid arthritis Continue on CUSTOMER PROJECT MANAGER on prednisone 10 mg daily. Chronic Anemia [...] if elevated will consider sliding scale insulin. CUSTOMER PROJECT MANAGER not on meds. Age-appropriate health maintenance as [...] presented to the ED with weakness. --Admitted [facility] on 03/06 -03/14/2024 for septic shock secondary to E. coli UTI with bacteremia, stage IV right ischial tuberosity decubitus ulcer. --Readmitted at [facility] on 03/21/[address] showed a sacral decubitus ulcer extending to the sacrum, right deep gluteal soft tissue tunneling and lower gluteal/upper thigh ulceration extending to the ischial tuberosity with evidence of chronic osteomyelitis. General surgery, infectious disease followed and recommended transfer to tertiary center. ---Was admitted at [facility] 03/24 to 03/31/2024. General surgery, infectious [...] back unable to be examined, in ED [facility]. PSYCHIATRY Cooperative Data: All new lab and imaging data was reviewed. documented in this encounter Procedure Notes * Dede Downing RN - 05/18/2024 9:19 AM CDTAssociated Order(s): Single Lumen Midline Placement [facility] Single Lumen Midline Placement Date/Time: 05/18/2024 [...] the procedure a time out was called [place] Protocol: the Joint Commission [place] Protocol was followed Preparation: Patient was prepped [...] size: 4 Fr Brand: Bard Lot number: [id number] Placement method: MST and ultrasound Number of [...] patch: $95/mo. Pregabalin 50mg: $47/mo. [facility] Generalist/Liaison, Discharge Pharmacy [phone] (voice or text) [email or web address] Available on Crossfader and Teams * Leela Degroot APRN CNP - 05/21/2024 11:39 AM CDTAssociated Order(s): PAIN MANAGEMENT ADULT IP CONSULT Images from the original note were not included. [facility] ACUTE PAIN SERVICE CONSULTATION [facility] Descomplica Console Leela Televisit Time start video: 10:51 [...] planned procedure. Patient is familiar to this ticket writer please see note from 05/12/24 for details [...] Senna-docusate -Opioid prescriber Flo Lanier MD -[place] ELECTRICAL ENGINEERING INTERN pulled from system on no controlled substance note . Discussed by patrice Mars PharmD covering floor and verified script of Oxycodone at last discharge and othe script of Oxycodone consistently from [facility] This indicates discrepancy Discharge Recommendations [...] ACHPN, PGMT- Acute Pain Team ( [facility]/RH, , [facility]) 8-4:30 after 3:30 page change house attendant No weekend coverage Securely message with the Descomplica Console (learn more here) * Johanny Harrison RN - 05/17/2024 12:07 PM CDTAssociated Order(s): WOUND OSTOMY CONTINENCE NURSE IP CONSULT Images from the original note were not included. [facility] PRE-OP OSTOMY CONSULTATION AND ASSESSMENT INTAKE Type of Stoma Planned: Permanent v. Temporary Colostomy Diagnosis Pertinent to Stoma: chronic osteomyelitis and constipation Type of Surgery: lap colostomy Surgery Date: 05/18 [place] [facility] [place] Living Situation: House Anticipated Discharge Location Post Hospital Stay: House EDUCATION ASSESSMENT Present for Teaching Session: Patient and Family Member Madalyn Hernandez (also mary) Apprentice Cosmetologist Present: NA Significant Vision Issues: No Hand [...] patient EDUCATION Teaching Folder Given: Yes Instruction: [facility] Role, Activity, Anatomy, Bathing: Ostomy supplies are water proof, Clothing, Diet,Fluids: Drink 6-8 glasses of non-caffeinated fluids daily, Hospital Stay: basics, Pouching Products: Showed pouching system, Supply Ordering, and Support Group Total Time Spent with Patient: 90 minutes Johanny FOURNIER 1st choice: Securely message with Crossfader ([facility] [facility]) (2nd option: [facility] Office , messages checked periodically Mon- Fri 8a-4p) * Franca Jim MD - 05/16/2024 10:44 AM CDTAssociated Order(s): COLORECTAL SURGERY IP CONSULT; COLORECTAL SURGERY IP CONSULT Images from the original note were not included. [facility] Colon and Rectal Surgery Consult Note [...] 650 mg Oral Q6H Leela Degroot APRN EXERCISE INSTRUCT 650 mg at 05/16/24 0916 amoxicillin-clavulanate (AUGMENTIN) 875-125 MG per tablet 1 tablet 1 tablet Oral Q12H [facility] (06/01) Adeline Varela MD 1 tablet at 05/16/24 0914 diclofenac (VOLTAREN) 1 % topical gel 4 g 4 g Topical TID Leela Degroot APRN EXERCISE INSTRUCT 4 g at 05/16/24 0922 doxycycline hyclate (VIBRAMYCIN) capsule 100 mg 100 mg Oral Q12H [facility] (06/01) Adeline Varela MD 100 mg at 05/16/24 0914 furosemide (LASIX) tablet 40 mg 40 mg Oral Daily Noemí Bhat MD 40 mg at 05/16/24 0914 gabapentin (NEURONTIN) capsule 400 mg 400 mg Oral TID Leela Degroot APRN EXERCISE INSTRUCT 400 mg at 05/16/24 0916 heparin ANTICOAGULANT injection 5,000 Units 5,000 Units Subcutaneous Q8H Ambar Joseph MD 5,000 Units at 05/16/24 0517 lactobacillus rhamnosus (GG) (CULTURELL) capsule 1 capsule 1 capsule Oral Daily Ambar Joseph MD 1 capsule at 05/16/24 0914 Lidocaine (LIDOCARE) 4 % Patch 3 patch 3 patch Transdermal Q24h Leela Degroot APRN EXERCISE INSTRUCT 3 patch at 05/15/242015 metoprolol tartrate (LOPRESSOR) tablet 25 mg 25 mg Oral BID Ambar Joseph MD 25 mg at multivitamin w/minerals (THERA-VIT-M) tablet 1 tablet 1 tablet Oral Daily Noemí Bhat MD 1 tablet at 05/16/2414 naproxen (NAPROSYN) tablet 250 mg 250 mg Oral TID w/meals Leela Degroot APRN EXERCISE INSTRUCT 250 mg at 05/16/24 0914 polyethylene glycol [...] C. difficile Antigen and Toxins A/B EIA [[id number]] Stool from Per Rectum Final result Component Value C Difficile Toxin B by PCR Negative A negative result does not exclude actual disease due to C. difficile and may be due to improper collection, handling and storage of the specimen or the number of organisms in the specimen is below the detection limit of the assay. 05/12/2024 1220 05/13/2024 1046 Urine Culture [[id number]] Urine, Cristobal Catheter Final result Component Value Culture No Growth 05/10/2024 1448 05/15/2024 1531 Blood Culture Peripheral Blood [[id number]] Peripheral Blood Final result Component Value Culture No Growth 05/10/2024 1446 05/10/2024 1608 Symptomatic Influenza A/B, RSV, & SARS-CoV2 PCR (COVID-19) Nasopharyngeal [[id number]] Swab from Nasopharyngeal Final result Component Value [...] would like to receive her care at [place]. If she prefers to stay and have his completed this admission, could add on for Friday. Would bowelprep and taiwo tomorrow. For questions/paging, please contact the CRS office at [phone]. Mechelle Jim MD Colon and Rectal Surgery [facility] [address] [address] T: [phone] F: [phone] * Linda Ware RN - 05/15/2024 10:03 [...] both [facility] Additional Information: Systems Eng met with the patient at the bedside. Patient is A+Ox4. Patient cleared for discharge to homewith family with resumption of homecare through [facility] for RN/SPUD DRILLER, HEAD TURNING MACHINE OPERATOR services of Daughter, and [facility] for [...] Ware RN, BSN, ACM Care Transitions Specialist [facility] Care Transitions Specialist [address] [id number] [email or web address] Office: [phone] [facility] * Jessica Rudolph RN - 05/13/2024 11:21 AM CDTAssociated Order(s): WOUND OSTOMY CONTINENCE NURSE IP CONSULT [facility] WO Nurse Inpatient Assessment Consulted for: [...] to the ED with weakness. Jessica Rudolph CWOCN Dept. Vocera- Contact [facility] Nurse (Zaynab) via Vocera Dept. Office Number: [phone] * Yaima Roman RN - 05/12/2024 3:21 PM CDTAssociated Order(s): CARE MANAGEMENT / SOCIAL WORK IP CONSULT Care Management Initial Consult General Information Assessment completed with: Patient Mary Type of CM/SW Visit: Initial Assessment Primary Care Provider verified and updated as needed: Yes Readmission within the last 30 days: no previous admission in last 30 days Reason for Consult: other (see comments) (Elevated risk of readmission) Advance Care Planning: Communication Assessment Patient's communication style: spoken language (Kyrgyz or Bilingual) Hearing Difficulty or Deaf: yes Wear Glasses or Blind: yes Cognitive Cognitive/Neuro/Behavioral: WDL Living Environment: People in home: child(suha), adult, spouse JeremiahElvi Current living Arrangements: house Able to return to prior arrangements: yes Family/Social Support: Care provided by: child(suha), homecare agency Provides care for: no one, unable/limited ability to care for self Marital Status: Children, Other (specify) (niece) Description of Support System: Supportive, Involved Current Resources: Patient receiving home care services: Yes Skilled Home Care Services: [facility] Community Resources: Other (see [...] Insecurity: No Food Insecurity (10/19/2023) Received from [facility] Hunger Vital Sign Worried About Running Out of Food in the Last Year: Never true Ran Out of Food in the Last Year: Never true Depression: Not on file Housing Stability: Low Risk (10/19/2023) Received from [facility] Housing Stability What is your living situation today?: I have a steady place to live Tobacco Use: Low Risk (11/07/2023) Received from [facility] Patient History Smoking Tobacco Use: Never Smokeless Tobacco Use: Never Passive Exposure: Not on file Financial Resource Strain: Low Risk (04/02/2024) [facility] Financial Resource Strain Difficulty of Paying Living Expenses: 2 Difficulty of Paying Living Expenses: Not on file Alcohol Use: Not on file Transportation Needs: No Transportation Needs (04/02/2024) [facility] Transportation Needs Lack of Transportation (Medical): 1 Physical Activity: Not on file Interpersonal Safety: Not At Risk (10/19/2023) Received from [facility] Humiliation, Afraid, Rape, and Kick questionnaire Fear of Current or Ex-Partner: No Emotionally Abused: No Physically Abused: No Sexually Abused: No Stress: Not on file Social Connections: Unknown (02/03/2022) [facility] Social Connections Frequency of Communication with Friends and Family: Not on file Health Literacy: Not on file Functional Status: Prior to admission patient needed assistance: Dependent ADLs:: Bathing, Dressing, Grooming, Incontinence, Positioning, Transfers, Wheelchair-withassist, Toileting Dependent IADLs:: Cleaning, Cooking, Laundry, Shopping, Meal Preparation, Medication Management, Money Management, Transportation, Incontinence Mental Health Status: Chemical Dependency Status: Values/Beliefs: Spiritual, Cultural Beliefs, Synagogue Practices, Values that affect care: yes (Holiness) Additional Information: Per consult for discharge planning, met with patient to discuss discharge planning. Per patient, she and her spouse, who has dementia, live with their daughter in her daughter's home. Per patient, she is mostly bed bound but is able to get into a wheelchair with assist of 1 and dustin lift. Patient shared that her daughter is also her paid HEAD TURNING MACHINE OPERATOR. Patient stated that she is open to Leslie sugar controller 2x week wound care & cristobal catheter exchange once a month and SPUD DRILLER services. Patient is also open to [facility] [...] pt is open to Skilled RN & SPUD DRILLER and requested discharge orders faxed to [phone]. Called [facility] and spoke to Ladabdirashid. Lady confirmed pt is seen by an SANDY once a week for wound care and requsted face sheet and discharge orders with wound care orders faxed to [phone]. Inpatient Oil Field Rig Builder will continue follow for discharge planning. MEME Vivar RN, BSN, OCN Inpatient Care Coordination [address] Office: [phone] * Leela Degroot APRN EXERCISE INSTRUCT - 05/12/2024 12:33 PM CDTAssociated Order(s): PAIN MANAGEMENT ADULT IP CONSULT Images from the original note were not included. [facility] ACUTE PAIN SERVICE CONSULTATION [facility] VocHullabalu Web Console Leela Date of Admission: 05/10/2024 [...] called to [place] PA-C by Dr. aRi Lock on 05/10/2024 5:18 PM CDT. Labs [...] of Prerna Major. Leela Degroot RN, PGMT-BC QUALITY MEASUREMENT SPECIALIST,EXERCISE INSTRUCT, ACHPN Acute Pain Team ( [facility]/RH, [facility], [facility]) 8-4:30 after 3:30 page change house attendant No weekend coverage Securely message with the Descomplica Console (learn more here) * Yaritza Hurtado MD - 05/11/2024 12:00 PM CDTAssociated Order(s): SURGERY GENERAL IP CONSULT [facility] Consult Note - General Surgery Service [...] (131 lb 6.3 oz). Yaritza Hurtado MD [facility] Non-urgent messages: Securely message with Crossfader ([employer] info) Text page via [facility] Paging/Directory Chief Complaint Pain from sacral wounds History is obtained from the patient and medical record History of Present Illness Prernajillian Major is a 78 year old female [...] Narrative EXAM: CT CHEST/ABDOMEN/PELVIS W CONTRAST LOCATION: [facility] DATE: 05/10/2024 INDICATION: Fever, paraplegia, abdominal [...] from the original note were not included. [facility] WO Nurse Inpatient Assessment Consulted for: Wound [...] STATUS: initial assessment Supplies ordered: ordered through [facility] from pharmacy, supplies stored on unit, and [...] areas Positioning Equipment: as needed Fluidized positioner (#[id number] or #[id number]) to help maintain side lying position. Chair positioning: Chair cushion (#[id number]) , Assist patient to reposition hourly, and [...] of care with: Patient, Nurse, and Physician [facility] nurse follow-up plan: weekly Notify WO if wound(s) deteriorate. Nursing to notify the Provider(s) and re-consult the [facility] Nurse if new skin concern. DATA: Current [...] and Shear: 1-->problem Brandon Score: 13 Johanny FOURNIER 1st choice: Securely message with Crossfader ([facility]) (2nd option: [facility] Office , messages checked periodically Mon- Fri [...] Diet history - she was eating regularly CUSTOMER PROJECT MANAGER - Supplements - She does a Premier [...] Weight 59.6 kg (actual) Estimated Energy Needs: 3951-4605 kcals (25-30 Kcal/Kg) Justification: maintenance, wound healing Estimated Protein Needs: 78-89 grams protein (1.3-1.5 g pro/Kg) Justification: wound healing Estimated Fluid Needs: 0711-0035 mL (1 mL/Kcal) Justification: maintenance MALNUTRITION: % [...] from the original note were not included. [facility] Infectious Disease Consultation Date of Admission: [...] bacteremia with septic shock requiring hospitalization at [facility]02/2024 -Chronic medical conditions -HUI, HFpEF, atrial fibrillation, [...] osteomyelitis. Most recently was admitted to [facility] with candidal albicans bacteremia and was admitted to [facility] for E.coli septic shock in February. [...] All laboratory data reviewed Component Latest Ref [facility] 05/10/2024 2:46 PM Influenza A Negative Negative Influenza B Negative Negative Resp Syncytial Virus Negative Negative SARS CoV2 PCR Negative Negative Component Latest Ref [facility] 05/10/2024 2:44 PM CRP Inflammation <5.00 mg/L 61.98 (H) CK Total 26 - 192 U/L 15 (L) Component Latest Ref [facility] 05/10/2024 2:44 PM WBC 4.0 - 11.0 [...] 1448 05/11/2024 0331 Blood Culture Peripheral Blood [[id number]] Peripheral Blood Preliminary result Component Value Culture No growth after 12 hours P 05/10/2024 1446 05/10/2024 1608 Symptomatic Influenza A/B, RSV, & SARS-CoV2 PCR (COVID-19) Nasopharyngeal [[id number]] Swab from Nasopharyngeal Final result Component Value Influenza A PCR Negative Influenza B PCR Negative RSV PCR Negative SARS CoV2 PCR Negative Imaging EXAM: CT CHEST/ABDOMEN/PELVIS W CONTRAST LOCATION: [facility] DATE: 05/10/2024 INDICATION: Fever, paraplegia, abdominal [...] Junior RN - 05/10/2024 6:06 PM CDT [facility] ED Nurse Handoff Report ED Chief [...] - Current: bed bound Patient's Preferred language: Kyrgyz Apprentice Cosmetologist Needed?: No Isolation: None Infection: Not Applicable [...] performed were none. ED NURSE PHONE NUMBER: *[id number] * Simona Bashir RN - 05/10/2024 2:25 [...] Pressure Ventricular Rate 103 Atrial Rate 103 MI Interval 144 QRS Duration 72 QT 340 QTc 445 P [place] 65 R AXIS 25 T [place] 50 Interpretation ECG Sinus tachycardia Possible left atrial enlargement When compared with ECG of 06-MAR-2024 04:53, No significant change Read by Nemesio Davial MD at 1552 Labs Ordered and Resulted [...] Urine Negative Ketones Urine 20 (*) Specific [place] Urine 1.026 Blood Urine Trace (*) pH [...] a tertiary care facility such as the [facility] although no beds readily available at that [...] and the provider's statements to me. 05/10/2024 [facility] EMERGENCY DEPT Nemesio Davila MD [...] Oral 96 16 99 % -- -- 05/10/240 -- 97.7 ??F (36.5 ??C) -- -- [...] Urine Negative Ketones Urine 20 (*) Specific [place] Urine 1.026 Blood Urine Trace (*) pH [...] Pressure Ventricular Rate 103 Atrial Rate 103 MI Interval 144 QRS Duration 72 QT 340 QTc 445 P [place] 65 R AXIS 25 T [place] 50 Interpretation ECG Sinus tachycardia, normal axis, [...] mEq/L infusion (0 mLs Intravenous Stopped 05/11/24 9686) potassium chloride (KLOR-CON) Packet 40 mEq (has [...] Saline (72 mLs As instructed $Given 05/10/24 160) iopamidol (ISOVUE-370) solution 62 mL (62 mLs [...] as of 05/11/24 0858 FriMay 10, 2024 143 I evaluated and examined the patient 1699 I reevaluate the patient, no change, condition. 1711 I spoke with hospital medicine, Dr. Joseph, who preferred to await CT results to determine if there is osteomyelitis and need for transfer for services not available at [facility]. 1719 I spoke with [facility] radiology regarding CT results, findings are consistent with chronic osteomyelitis with possible acute osteomyelitis at the coccyx. 1745 I spoke with the clinical pharmacist regarding antibiotic choices given patient's allergies. He recommends linezolid and Flagyl as well as the previously ordered ceftriaxone. Optional/Additional Documentation None Medical Decision Making / Diagnosis [facility] Diagnoses: None MIPS Cristobal catheter was [...] goal(s). See goals on Care Plan in [facility] electronic health record for goal details. Goals [...] HH OT/PT, however, confirmed planper RN and district manager primary care sales/SW is to discharge to TCU this date. [...] if needingmore supportive environment consider placement in [facility] intermediary care facility. * Plan of Care - Alaina Malave RN - 05/24/2024 6:38 PM CDT Shift Note [id number]: Patient is alert and oriented x4. Mobility: [...] Alfredo MD - 05/18/2024 6:52 PM CDT [facility] Brief Operative Note Pre-operative diagnosis: Decubitus [...] MD [facility] [phone]. ADDENDUM: PATIENT DATA Indicate Y or N: [...] done Yes * Plan of Care - Jzamin Acosta RN - 05/18/2024 6:29 PM CDT [...] PM CDT Goal Outcome Evaluation: Date/Time: 05/18/2024 (6822-5303) Mental Status: A&O x4 Activity/dangle: Mechanical lift [...] sigmoid end colostoy SURGEON: Peter Alfredo MD PEARL PELLER: Sanchez Sparks MD, [facility] Colorectal Surgery Fellow ANESTHESIA: General. ESTIMATED BLOOD [...] Kirk RN - 05/18/2024 7:06 AM CDT 7259-0994 Orientation: A&Ox4 Aggression Stop Light: green Activity: [...] Notification Date/Time: 05/18/2024 at 0600 Notification Interaction: [employer] web messaging Purpose of Notification SBAR Situation: [...] PM CDT Goal Outcome Evaluation: Date/Time: 05/17/2024 (1991-3819) Mental Status: A&O x4 Activity/dangle: Up with [...] Briceno Notification Date/Time:05/17/2024 @ 1254 Notification Interaction: Dimitry Purpose of Notification: Clarification [...] HFpEF, atrial fibrillation, hypertension, gastric ulcer 05/15/2024 2694-4851 Contact precautions maintained for MRSA Orientation A [...] HFpEF, atrial fibrillation, hypertension, gastric ulcer 05/15/2024 5496-8738 Orientation A &O x 4 Vitals/Tele VSS [...] Maciel RN - 05/14/2024 7:09 AM CDT 0216-9273 Orientation: a&ox4 Aggression Stop Light: green Activity: [...] Tele: NSR IV Access/Drains: Cristobal. No PIV, aware. Pain Management: Oxy PRN prior to [...] Notified Person Name: Quique Cordon Notification Date/Time: 05/13/2444 Notification Interaction: dimitry Purpose of Notification: Complained of itchiness, no PRN available, can you order one in? Noted scattered rashes in the abd area, neck and upper arms, denies SOB, VS WDL. Thanks Orders Received: Comments: * Plan of Care - Wyatt Tuttle RN - 05/13/2024 3:40 AM CDT Goal Outcome Evaluation: 05/12/24 3545-4899 Orientation: A/Ox4, pleasant Aggression Stop Light: green [...] 05/12/2024 6:06 PM CDT Goal Outcome Evaluation: 7343-3204 Orientation: AOx4 Aggression Stop Light: green Activity: [...] CDI, W/C completed today dressing changes. Consults: MUKESH DENNIS, gen surg D/C Disposition: pending Other Info: * Plan of Care - Eric Waldrop RN - 05/12/2024 6:45 AM CDT 9328-6308 Orientation: A/Ox4 Aggression Stop Light: green Activity: Ax2 lift Diet/BS Checks: reg Tele: NSR IV Access/Drains: R PIV SL Pain Management: pre medicated wound care with 7.5mg oxy- effective. PRN Oxy given x1 for pain 0615effective Abnormal VS/Results: VSS on 3L NC Bowel/Bladder: Chronic cristobal, Incontinent bowel Skin/Wounds: wounds on buttocks/coccyx CDI Consults: MUKESH DENNIS, gen surg D/C Disposition: TBD Other Info: [...] Eric Garcia RN, can attest to the Healthcare Sales Representative's note and assessment. Care was provided underdirect supervision of an RN * Pharmacy-Admission Medication History - Kaela Martinez RP - 05/10/2024 7:06 PM CDT Pharmacist Admission Medication History Admission medication history is complete. The information provided in this note is only as accurateas the sources available at the time of the update. Information Source(s): Patient, Family member, and CareEverywhere/SureScripts via in-person Pertinent Information: -patient was prescribed Augmentin and Flagyl 05/07/24 x 7 days supply Changes made to CUSTOMER PROJECT MANAGER medication list: Added: Augmentin, Flagyl Deleted: potassium Changed: furosmide, metoprolol Allergies reviewed with patient and updates made in EHR: yes Medication History Completed By: Kaela Martinez RPH 05/10/2024 7:06 PM CUSTOMER PROJECT MANAGER Med List Medication Sig Last Dose acetaminophen [...] MD LAB - BLOOD ORDERABL ES LABORATORY [facility] Acute Care Lab [address] 1[address] floor, [address] [place] [address], [facility] [phone] * Platelet count (05/24/2024 7:31 AM CDT) Pathologist [facility] Platelet Count 286 150 - 450 10e3/uL 05/24/2024 8:13 AM CDT LABORATORY Blood STRUCTURE OF RIGHT UPPER LIMB / Unknown Venipuncture / Unknown 05/24/2024 7:31 AM CDT 05/24/2024 8:10 AM CDT Peter Alfredo MD LAB - BLOOD ORDERABL ES LABORATORY [facility] [address], [address] [place] [address], [facility] [phone] * (ABNORMAL) CBC with platelets (05/21/2024 7:05 AM CDT) Pathologist [facility] WBC Count 11.2(H) 4.0 - 11.0 10e3/uL [...] PA-C LAB - BLOOD ORDERA BLES LABORATORY [facility] Acute Care Lab [address], [address] [place] [address], [facility] [phone] * (ABNORMAL) Basic metabolic panel (05/21/2024 7:05 AM CDT) Sodium 143 135 - 145 mmol/L 05/21/2024 7:44 AM [facility] Potassium 3.4 3.4 - 5.3 mmol/L 05/21/2024 7:44 AM [facility] Chloride 104 98 - 107 mmol/L 05/21/2024 7:44 AM [facility] Carbon Dioxide (CO2) 32(H) 22 - 29 mmol/L 05/21/2024 7:44 AM [facility] Anion Gap 7 7 - 15 mmol/L 05/21/2024 7:44 AM [facility] Urea Nitrogen 31.0(H) 8.0 - 23.0 mg/dL 05/21/2024 7:44 AM [facility] Creatinine 0.44(L) 0.51 - 0.95 mg/dL 05/21/2024 7:44 AM [facility] GFR Estimate >90 >60 mL/min/1.7 3m2 05/21/2024 7:44 AM [facility] Comment:eGFR calculated usin g 2020 CKD-EPI equation. Calcium 8.6(L) 8.8 - 10.4 mg/dL 05/21/2024 7:44 AM [facility] Comment:Reference intervals for this test [...] PA-C LAB - BLOOD ORDERA BLES LABORATORY [facility] Lab [address] floor, [address] [place] [address], [facility] [phone] * (ABNORMAL) Glucose by meter (05/19/2024 10:21 PM CDT) GLUCOSE BY METER POCT 157(H) 70 - 99 mg/dL 05/19/2024 10:28 PM CDT LABORATORY POC Blood, Capillary BLOOD SPECIMEN / Unknown 05/19/2024 10:21 PM CDT 05/19/2024 10:28 PM CDT Ambar Joseph MD LAB - BEAKER POCT Performing Organization Address City/[facility]/ZIP Co de Phone Number LABORATORY POC [facility] Lab [address] floor, [place] [address], [facility] * (ABNORMAL) Phosphorus (05/19/2024 6:06 AM CDT) Phosphorus 4.8(H) 2.5 - 4.5 mg/dL 05/19/2024 7:15 AM CDT LABORATORY Blood STRUCTURE OF RIGHT UPPER LIMB / Unknown Venipuncture / Unknown 05/19/2024 6:06 AM CDT 05/19/2024 6:34 AM CDT Peter Alfredo MD LAB - BLOOD ORDERABL ES LABORATORY [facility] Lab [address] floor, [address] [place] [address], [facility] [phone] * Magnesium (05/19/2024 6:06 AM CDT) Pathologist [facility] Magnesium 1.9 1.7 - 2.3 mg/dL 05/19/2024 7:15 AM CDT LABORATORY Blood STRUCTURE OF RIGHT UPPER LIMB / Unknown Venipuncture / Unknown 05/19/2024 6:06 AM CDT 05/19/2024 6:34 AM CDT Peter Alfredo MD LAB - BLOOD ORDERABL ES LABORATORY [facility] Acute Care Lab [address] floor, [address] [place] [address], [facility] [phone] * (ABNORMAL) CBC with platelets (05/19/2024 6:06 AM CDT) [facility] WBC Count 12.5(H) 4.0 - 11.0 10e3/uL [...] MD LAB - BLOOD ORDERABL ES LABORATORY [facility] Acute Care Lab [address] floor, [address] [place] [address], [facility] [phone] * (ABNORMAL) Basic metabolic panel (05/19/2024 6:06 [...] MD LAB - BLOOD ORDERABL ES LABORATORY [facility] Acute Care Lab [address], [address] [place] [address], [facility] [phone] * Adult Type and Screen (05/18/2024 11:18 AM CDT) ABO/RH(D) A POS 05/18/2024 7:11 AM CDT BLOOD BANK Antibody Screen Negative Negative 05/18/2024 7:11 AM CDT BLOOD BANK SPECIMEN EXPIRATION DATE [id number] 05/18/2024 7:11 AM CDT BLOOD BANK Blood BLOOD SPECIMEN / Unknown Venipuncture / Unknown 05/18/2024 11:18 AM CDT 05/18/2024 11:35 AM CDT Janak Robledo PA-C LAB - BLOOD BANK T EST ORDER Performing Organization Address City/[facility]/ZIP Co de Phone Number BLOOD BANK [address] [facility] [place] [address] * (ABNORMAL) Basic metabolic panel (05/18/2024 11:18 [...] Robledo PA-C LAB - BLOOD ORDERA BLES [facility] Lab [address], [place] [address], [facility] [phone] * (ABNORMAL) Hemoglobin (05/18/2024 11:18 AM CDT) [facility] Signature Hemoglobin 10.2(L) 11.7 - 15.7 g/dL 05/18/2024 11:39 AM CDT LABORATORY Blood BLOOD SPECIMEN / Unknown Venipuncture / Unknown 05/18/2024 11:18 AM CDT 05/18/2024 11:35 AM CDT Janak Robledo PA-C LAB - BLOOD ORDERA BLES LABORATORY [facility] Lab [address], [address] [place] [address], [facility] [phone] * Platelet count (05/18/2024 11:18 AM CDT) Platelet Count 273 150 - 450 10e3/uL 05/18/2024 11:39 AM CDT LABORATORY Blood BLOOD SPECIMEN / Unknown Venipuncture / Unknown 05/18/2024 11:18 AM CDT 05/18/2024 11:35 AM CDT Peter Alfredo MD LAB - BLOOD ORDERABL ES LABORATORY [facility] Lab [address], [address] [place] [address], [facility] [phone] * (ABNORMAL) CK total (05/18/2024 11:18 AM CDT) CK 12(L) 26 - 192 U/L 05/18/2024 12:01 PM CDT LABORATORY Blood BLOOD SPECIMEN / Unknown Venipuncture / Unknown 05/18/2024 11:18 AM CDT 05/18/2024 11:35 AM CDT Peter Alfredo MD LAB - BLOOD ORDERABL ES LABORATORY [facility] Lab [address], [address] [place] [address], [facility] [phone] * Single Lumen Midline Placement (05/18/2024 9:15 AM CDT) Narrative Dede Downing RN - 05/18/2024 9:15 AM CDT Dede Downing RN ? 05/18/2024 ??9:19 AM [facility] Single Lumen Midline Placement Date/Time: 05/18/2024 [...] procedure a time out was called ?? [place] Protocol: the Joint Commission [place] Protocol was followed ?? Preparation: Patient was [...] type: valved Catheter size: 4 Fr Brand: PPI Lot number: [id number] Placement method: MST and ultrasound Number of [...] CBC with platelets (05/16/2024 8:42 AM CDT) Pathologist [facility] WBC Count 15.9(H) 4.0 - 11.0 10e3/uL [...] 150 - 450 10e3/uL 05/16/2024 9:09 AM CDT LABORATORY Blood STRUCTURE OF RIGHT UPPER LIMB / Unknown Venipuncture / Unknown 05/16/2024 8:42 AM CDT 05/16/2024 9:05 AM CDT Anna Fajardo MD LAB - BLOOD ORDERA BLES LABORATORY [facility] Care Lab [address], [address] [place] [address], [facility] [phone] * (ABNORMAL) Basic metabolic panel (05/16/2024 8:42 [...] Fajardo MD LAB - BLOOD ORDERA BLES [facility] Lab [address], [address] [place] [address], [facility] [phone] * Platelet count (05/15/2024 8:46 AM CDT) [facility] Platelet Count 255 150 - 450 10e3/uL 05/15/2024 9:30 AM CDT LABORATORY Blood STRUCTURE OF LEFT HAND / Unknown Venipuncture / Unknown 05/15/2024 8:46 AM CDT 05/15/2024 9:22 AM CDT Peter Alfredo MD LAB - BLOOD ORDERABL ES [facility] Lab [address], [address] [place] [address] [phone] * C. difficile Toxin B PCR with [...] LABORATORY - 05/14/2024 7:39 PM CDT The [employer] Xpert C. difficile Assay, performed on the invendo medicalXMixercast?? Instrument Systems, is a qualitative in vitro [...] MICRO GENERA L ORDERABLES [facility] IDD LABORATORY [facility] Inf. Diseases Diag. Lab [address] [place] [address] * (ABNORMAL) Basic metabolic panel (05/13/2024 8:16 [...] MD LAB - BLOOD ORDERABL ES LABORATORY [facility] Lab [address], [address] [place] [address], [facility] [phone] * (ABNORMAL) CBC with platelets (05/13/2024 8:16 [...] MD LAB - BLOOD ORDERABL ES LABORATORY [facility] Lab [address] floor, [address] [place] [address], [facility] [phone] * Urine Culture (05/12/2024 12:20 PM CDT) Culture No Growth 05/13/2024 10:46 AM CDT [facility] LABORATORY Urine URINE SPECIMEN OBTAINED VIA INDWELLING URINARY CATHETER / Unknown Non-blood Collection / Unknown 05/12/2024 12:20 PM CDT 05/12/2024 12:28 PM CDT Noemí Bhat MD LAB - MICRO GENERAL ORDERABLES [facility] IDD LABORATORY [facility] Inf. Diseases Diag. Lab [address] [place] [address], [facility] * (ABNORMAL) Basic metabolic panel (05/11/2024 10:55 AM CDT) Pathologist [facility] Sodium 138 135 - 145 mmol/L 05/11/2024 [...] 11:45 AM CDT LABORATORY Comment:eGFR calculated usin g 2020 CKD-EPI equation. Calcium 8.4(L) 8.8 - [...] MD LAB - BLOOD ORDERABL ES LABORATORY [facility] Acute Care Lab [address], [address] [place] [address], [facility] [phone] * (ABNORMAL) WBC count (05/11/2024 10:55 AM CDT) WBC Count 13.4(H) 4.0 - 11.0 10e3/uL 05/11/2024 11:27 AM CDT LABORATORY Blood STRUCTURE OF RIGHT UPPER LIMB / Unknown Venipuncture / Unknown 05/11/2024 10:55 AM CDT 05/11/2024 11:24 AM CDT Ambar Joseph MD LAB - BLOOD ORDERABL ES LABORATORY [facility] Lab [address], [address] [place] [address], [facility] [phone] * CT Chest/Abdomen/Pelvis w Contrast (05/10/2024 4:42 [...] CDT EXAM: CT CHEST/ABDOMEN/PELVIS W CONTRAST LOCATION: [facility] DATE: 05/10/2024 INDICATION: Fever, paraplegia, abdominal [...] 05/10/2024 EXAM: CT CHEST/ABDOMEN/PELVIS W CONTRAST LOCATION: [facility] DATE: 05/10/2024 INDICATION: Fever, paraplegia, abdominal [...] mg/dL 05/10/2024 4:59 PM CDT LABORATORY Specific [place] Urine 1.026 1.003 - 1.035 05/10/2024 4:59 [...] PA-C LAB - URINE ORDERABL ES LABORATORY [facility] Care Lab [address], [address] [place] [address], [facility] [phone] * EKG 12-lead, tracing only (05/10/2024 3:43 PM CDT) Systolic Blood Pressure mmHg RADIOLOGY RESULTS Diastolic Blood Pressure mmHg RADIOLOGY RESULTS Ventricular Rate 103 BPM RAD IOLOGY RESULTS Atrial Rate 103 BPM RADIOLOG Y RESULTS MI Interval 144 ms RADIOLOG Y RESULTS QRS Duration 72 ms RADIOLO GY RESULTS QT 340 ms RADIOLOGY RESULTS QTc 445 ms RADIOLOGY RESULTS P [place] 65 degrees RADIOLOGY RESULTS R AXIS 25 degrees RADIOLOGY RESULTS T [place] 50 degrees RADIOLOGY RESULTS Interpretation ECG Sinus tachycardia Possible Left atrial enlargement Borderline ECG When compared with ECG of 12-Mar-2024 11:32, Right bundle branch block is no longer Present Confirmed by GENERATED REPORT, COMPUTER ([id number]), editorial intern BHARATH LYNN ([id number]) on 05/10/2024 3:50:14 PM RADIOLOGY RESULTS 05/10/2024 [...] - MICRO GENERAL ORDERABLES [facility] IDD LABORATORY [facility] Inf. Diseases Diag. Lab [address] [place] [address] * Symptomatic Influenza A/B, RSV, & SARS-CoV2 PCR (COVID-19) Nasopharyngeal (05/10/2024 2:46 PM CDT) [facility] Influenza A PCR Negative Negative 05/10/2024 4:08 [...] the Xpert Xpress CoV2/Flu/RSV Assay on the [employer] GeneXpert Instrument. This test should be ordered [...] was validated by the [facility]. These laboratories are certified under the Clinical Laboratory Improvement Amendments of 1988 (CLIA-88) as qualified to perform high complexity laboratory testing. Chago Meadows PA-C LAB - MICRO GENERAL ORDERABLES LABORATORY [facility] Lab [address], [address] [place] [address], [place] [phone] * (ABNORMAL) CK total (05/10/2024 2:44 PM CDT) CK 15(L) 26 - 192 U/L 05/10/2024 7:41 PM CDT LABORATORY Blood BLOOD SPECIMEN / Unknown Venipuncture / Unknown 05/10/2024 2:44 PM CDT 05/10/2024 3:17 PM CDT Ambar Joseph MD LAB - BLOOD ORDERABL ES Performing Organization Address City/[facility]/ZIP Co de Phone Number LABORATORY [facility] Lab [address], [address] [place] [address], [place] [phone] * (ABNORMAL) CRP inflammation (05/10/2024 2:44 PM CDT) CRP Inflammation 61.98(H) <5.00 mg/L 05/10/2024 7:41 PM CDT LABORATORY Blood BLOOD SPECIMEN / Unknown Venipuncture / Unknown 05/10/2024 2:44 PM CDT 05/10/2024 3:17 PM CDT Ambar Joseph MD LAB - BLOOD ORDERABL ES LABORATORY [facility] Lab [address], [address] [place] [address], [place] [phone] * (ABNORMAL) Lipase (05/10/2024 2:44 PM CDT) Pathologist [facility] Lipase 11(L) 13 - 60 U/L 05/10/2024 3:41 PM CDT LABORATORY Blood BLOOD SPECIMEN / Unknown Venipuncture / Unknown 05/10/2024 2:44 PM CDT 05/10/2024 3:17 PM CDT Chago Meadows PA-C LAB - BLOOD ORDERABL ES LABORATORY [facility] Lab [address], [address] [place] [address], [facility] [phone] * (ABNORMAL) CBC with platelets and differential (05/10/2024 2:44 PM CDT) [facility] WBC Count 15.6(H) 4.0 - 11.0 10e3/uL [...] PA-C LAB - BLOOD ORDERABL ES LABORATORY [facility] Lab [address], [address] [place] [address], [facility] [phone] * (ABNORMAL) Comprehensive metabolic panel (05/10/2024 2:44 [...] PA-C LAB - BLOOD ORDERABL ES LABORATORY [facility] Lab [address], [address] [place] [address], [facility] [phone] * (ABNORMAL) iStat Gases (lactate) venous, POCT [...] Nemesio MI - HERIBERTO POCT LABORATORY POC [facility] [address], [address] [place] [address], [facility] documented in this encounter Visit Diagnoses Diagnosis Osteomyelitis of coccyx (H)- Primary Acute cystitis with hematuria Acute cystitis Osteomyelitis of coccyx (H) Septic shock (H) Chronic osteomyelitis (H) Chronic osteomyelitis, site unspecified Drug-induced constipation Other constipation Loose stools Abnormal feces Chronic pain syndrome Chronic atrial fibrillation (H) Atrial fibrillation Pressure injury of skin, unspecified injury stage, unspecified location [L89.90] Attention to colostomy (H) [Z43.3] Attention to colostomy Acute cystitis with hematuria Acute cystitis Paraplegia (H) Paraplegia Pressure injury of skin, unspecified injury stage, unspecified location Chronic indwelling Cristobal catheter Other postprocedural status Chronic osteomyelitis (H) Chronic osteomyelitis, site unspecified documented in this [...] at 1821, If the patient has multiple MI bowel stimulant agents ordered PRN, offer in [...] 9:55 AM CDT 350 mg 190 mL/hr $30/2024 12:21 PM CDT 350 mg diclofenac (VOLTAREN) [...] Caution to be used when administering multiple DIRECTOR CUSTOMER depressing meds within a short time frame. [...] analgesic side effects. Hold while on IV HEAD TURNING MACHINE OPERATOR or with regular IV opioid dosing. $Given [...] 6 HOURS PRN, inflammatory pain, Starting on 05/20/24 at 1611, For 5 days, Can [...] % Patch 3 patch 3 patch, Transdermal, Administer over 12 Hours, EVERY 24 HOURS 1999, First dose on Fri05/12/24 at 2000, Apply [...] PRN, severe pain, Starting on Fri05/18/24 at 2037, Hold oral PRN dose for analgesic side effects. Notify provider to assess for uncontrolled pain or analgesic side effects. Hold while on IV HEAD TURNING MACHINE OPERATOR or with regular IV opioid dosing. $Given [...] and non-opioid interventions, Starting on Fri05/10/24 at 2038, May use concomitant with non-opioid analgesics. $Given [...] over 1-2 Minutes, Starting on Fri05/18/24 at 8, This is Step 2 of nausea and [...] 12 years If the patient has multiple MI bowel stimulant agents ordered PRN, offer in [...] each application [facility] 1255 ($Given - Provider: Alaina Malave RN - Comment: pt wants med applied with wound dressings)1636 (Not Given - Provider: Alaina Malave RN - Reason: Patient/family refused)2104 ($Given - Provider: Maribel Clayton RN) 0918 ($Given - Provider: Nakul Moreno RN)1857 ($Given - Provider: Nakul Moreno RN)2250 ($Given - Provider: Mateo Henry RN) 1209 ($Given - Provider: Bertha Campbell, RN)1600 (Canceled Entry - Provider: Zainab Generic Provider - Comment: Automatically canceled at [...] at 1600 0958 ($Given - Provider: Alaina Malave, MEME) hydrOXYzine HCl (ATARAX) tablet 10 mg (CANCELED) 10 mg, Oral, 3 TIMES DAILY, First dose on Fri05/21/24 at 1600 0958 ($Given - Provider: Alaina Malave, MEME) lactobacillus rhamnosus (GG) (CULTURELL) capsule 1 capsule 1 capsule, Oral, DAILY, First dose on Fri05/10/24 at 2100, Administer at least 2 hours before or after oral antibiotics. Capsules may be opened. 0959 ($Given - Provider: Alaina Malave RN) 0916 ($Given - Provider: Nakul Moreno RN) 0859 ($Given - Provider: Bertha Campbell RN) Lidocaine (LIDOCARE) 4 % Patch 3 patch 3 patch, Transdermal, Administer over 12 Hours, EVERY 24 HOURS 1999, First dose on Fri05/12/24 at 2000, Apply [...] Clayton RN) 0916 ($Given - Provider: Nakul Moreno, MEME)2016 ($Given - Provider: Mateo Henry, MEME) 0859 [...] Henry, MEME) 0859 ($Given - Provider: Bertha Campbell RN) sodium chloride (PF) 0.9% PF flush 10 mL 10 mL, Intracatheter, EVERY 8 HOURS, First dose on Fri05/17/24 at 1330, To lock peripheral midline IV catheter dormant lumen. Recommended to flush Q8H each lumen even during infusions 1003 ($Given - Provider: Alaina Malave RN)1634 ($Given - Provider: Alaina Malave, MEME) 0143 ($Given - Provider: Mateo Henry RN)0918 ($Given - Provider: Nakul Moreno RN)1906 ($Given - Provider: Nakul Moreno RN) 0150 ($Given - Provider: Mateo Henry, MEME)1211 (Canceled Entry - Provider: Bertha Campbell RN)1600 [...] RN) 1211 (Canceled Entry - Provider: Bertha Campbell, MEME) zinc sulfate (ZINCATE) capsule 220 mg 220 [...] Patient/family refused) 0815 ($Given - Provider: Bertha Campbell, MEME) benzocaine-menthol (CHLORASEPTIC) 6-10 MG lozenge 1 lozenge 1 lozenge, Buccal, EVERY 1 HOUR PRN, sore throat, Starting on Fri05/18/24 at 2038, For sore throat without fever. bisacodyl (DULCOLAX) suppository 10 mg 10 mg, Rectal, DAILY PRN, constipation, Starting on Fri05/12/24 at 1821, If the patient has multiple MI bowel stimulant agents ordered PRN, offer in [...] Caution to be used when administering multiple DIRECTOR CUSTOMER depressing meds within a short time frame. [...] lock dormant line, Starting on Fri05/18/24 at 203 sodium phosphate (FLEET ENEMA) 1 enema 1 enema, Rectal, DAILY PRN, constipation, Starting on Fri05/12/24 at 1403, For children greater than or equal to 12 years If the patient has multiple MI bowel stimulant agents ordered PRN, offer in [...] documented as of this encounter Care Teams Tool Room Attendant Relationship Specialty Start Date End Date Flo Mckeon MD [address] [address] PCP - General Family Medicine 03/09/24 documented as of this encounter
--- OUTSIDE RECORDS SUMMARY | 2024-07-20 11:36 | XMS_ITS | Encounter Summary ---
Author Organization [place] Address [address] [facility] [place] [address] Care Team Providers Care Community Organization Director Name Role Phone Flo Mckeon MD Primary Care Provider [phone] Reason for Visit * Auth/Cert Specialty Diagnoses / Procedures Referred By Paresh palomino Referred To Contact EMERGENCY MEDICINE Diagnoses Acute cystitis with hematuria Osteomyelitis of coccyx (H) Emergency Dept [address] [facility] [place] [address] Referral ID Status Reason Start Date Expiration Date Visits Re quested Visits Authorized [id number] 1 1 Encounter Details Date Type Department Care Team (Late st Contact Info) Description 05/18/2024 5:30 PM CDT Anesthesia Event [facility] [address], [address] [place] [address] Pool Palacios DO [facility] [address] [place] [id number] Skyler Rosenthal MD [facility] [address] [phone] Anesthesia Record Procedure Summary Procedure Name Responsible Anesthesiologist Anesthesia Start Time Anesthesia Stop Time Laparoscopic diverting colostomy (Abdomen) Philip Pool Ras, DO 05/18/24 17305/18/24 191 Events Date Time Event Comment 05/18/2024 1700 FILM COMPOSER Ready for Procedure [id number] 173 An Start [...] le Lumen; Red; Bard; 4 fr; Valved; [id number]; Yes; No; Yes; Right; Brachial vein medial; [...] Tube Size: 6.5 mm; VL Blade Size: [place] scope 3; Grade View: 1; Adjucts: Stylet; [...] PM Staff - Anesthesiologist: Pool Palacios DO FILM COMPOSER: Mallika Foster APRN FILM COMPOSER Other Anesthesia Staff: Meri Song Performed By: SRNA and FILM COMPOSER Consent for Airway Urgency: elective Indications and [...] and realistic alternatives discussed. Questions answered and patient/medical field representative(s) expressed understanding. - Discussed: - Discussed [...] - ? Anesthesiologist: ??Pool Palacios, DO ? FILM COMPOSER: Mallika Foster APRN CRNA ? Other Anesthesia Staff: Meri Song ? Performed By: SRNA and FILM COMPOSER Consent for Airway ? Urgency: elective Indications [...] Time: 05/18/2024 5:40 PM Pool Palacios DO [facility] documented in this encounter Visit Diagnoses [...] documented as of this encounter Care Teams Community Organization Director Relationship Specialty Start Date End Date Flo Mckeon MD [address] [address] PCP - General Family Medicine 03/09/24 documented as of this encounter
--- OUTSIDE RECORDS SUMMARY | 2024-07-20 11:36 | XMS_ITS | Encounter Summary ---
Author Organization [place] Address [address] [place] [address] Care Team Providers Care Interlocker Name Role Phone Flo Mckeon MD Primary Care Provider [phone] Reason for Visit * Reason Onset Date Comments Prior Auth - Medication 05/21/2024 Pregabal in - Denied Encounter Details Date Type Department Care Team (Late st Contact Info) Description 05/21/2024 Telephone [facility] [address] [place] [address] [address] [place] [address] Leela Degroot, AMIRAH HOT CAR OPERATOR [address] [place] [address] Prior Auth - Medication (Pregabalin - Denied) [...] PREGABALIN 50 MG PO CAPS Insurance Company: [employer] [phone] Denial Date: 05/21/2024 Denial Reason(s): Appeal Information: [...] documented as of this encounter Care Teams Interlocker Relationship Specialty Start Date End Date Flo Mckeon MD [facility] & [address] [address] PCP - General Family Medicine 03/09/24 documented as of this encounter
--- OUTSIDE RECORDS SUMMARY | 2024-07-20 11:37 | XMS_ITS | Clinical Summary ---
Author Organization [facility] Address [address], [place] [address] Care Team Providers Care Spar Machine Operator Name Role Phone Flo Mckeon MD Primary Care Provider [phone] Source Comments You are receiving this document as you are listed as the primary care provider,follow-up provider, or the patient has been referred to you for consultation.This is in compliance with the Medicare and[facility] Cent[facility] EHR Incentive Program,which states Providers who transition their patient to another setting of careor provider of care or refers their patient to another provider of care shouldprovide summary care record for each transition of care or referral. [employer] Medications Medication Sig Dispensed Refills Start Date End Date Status acetaminophen (TYLENOL ARTHRITIS) 650 MG controlled release tablet as needed Active furosemide (LASIX) 20 MG tablet Daily 06/11/2021 Active diphenhydrAMINE-APAP 25-500 MG tablet Bedtime as needed A ctive predniSONE (DELTASONE) 5 MG tablet 10 mg daily. 06/11/2021 Active aspirin EC 81 MG enteric coated tablet Daily Act job pseudoephedrine ([id number]) 120 MG 12 hour release tablet Daily [...] on patient's age to complete this topic Infant RSV Aged Out No longer eligi ble based [...] Negative (Non Reactive) 06/28/2021 7:52 PM CDT [facility] Comment:Antibodies to HCV no t detected. Does not exclude the possiblity of exposure to HCV. Blood Venipuncture / Unknown 06/28/2021 2:27 PM CDT 06/28/2021 2:28 PM CDT Lorenza Q Black DO LAB_1 [facility] [address] [place] [address], [facility] from Last 3 Months or Most Recently Relevant to Health Maintenance Care Teams Spar Machine Operator Relationship Specialty Start Date End Date Flo Mckeon MD [address] [place] [address] PCP - General 06/21/21
--- OUTSIDE RECORDS SUMMARY | 2024-07-20 11:37 | XMS_ITS | Clinical Summary ---
Author Organization [employer] [facility] Address [place], [place] [address] Care Team Providers Care Transmission Repairer Name Role Phone Kallie Tamayo NP Unavailable [phone] Flo Mckeon MD Primary Care Provider [phone] [facility] [place] Unavailable [phone] Allergies Active Allergy Reactions Criticality Noted Date [...] (Dulcolax, bisacodyl,) 10 mg suppository OK for musical therapist to administer 04/05/2024 Active oxyCODONE 7.5 mg [...] dry, clean, hairless skin once weekly. Active cefuroxime axetil (CEFTIN) 500 mg tablet Take 500 mg by mouth two times daily. x10d 07/04/2024 07/15/2024 Active Problems Problem Noted Date Diagnosed Date [...] Encounters Date Type Department Care Team Description 07/19/2024 12:30 PM CDT Home Care Visit [address] [address] Rupinder Canchola RN SN - HOME VISIT 07/19/2024 8:45 AM CDT Home Care Visit [address] [address] Nimco Palacios INSURANCE VERIFY REP - HOME VISIT 07/16/2024 2:30 PM CDT Home Care Visit [address] [address] Denia Avery, MEME SN - HOME VISIT 07/16/2024 10:00 AM CDT Home Care Visit [address] [address] Nimco Palacios INSURANCE VERIFY REP - HOME VISIT 07/15/2024 Plan of Care Documentation [address] [address] 07/13/2024 10:00 PM CDT Home Care Visit [address] [address] Elvi Leger RN SN - AFTER HOURS OASIS START OF CARE 07/13/2024 Nurse Triage [address] [address] Flo Mckeon MD Catheter Problem 07/12/2024 11:30 AM CDT Home Care Visit [address] [address] Denia Avery, MEME SN - COVERAGE CHANGE OASIS DISCHARGE 07/12/2024 10:00 AM CDT Home Care Visit [address] [address] Nimco Palacios INSURANCE VERIFY REP - HOME VISIT 07/09/2024 2:00 PM CDT Home Care Visit [address] [address] Rupinder Canchola RN SN - HOME VISIT 07/09/2024 10:00 AM CDT Home Care Visit [address] [address] Nimco Palacios INSURANCE VERIFY REP - HOME VISIT 07/07/2024 11:00 AM CDT Home Care Visit [address] [address] Nimco Palacios INSURANCE VERIFY REP - HOME VISIT 07/05/2024 1:30 PM CDT Home Care Visit [address] [address] Rupinder Canchola RN SN - HOME VISIT 07/05/2024 12:30 PM CDT Home Care Visit [address] [address] Nimco Palacios INSURANCE VERIFY REP - HOME VISIT 07/03/2024 Home Care Visit [address] [address] Elvi Leger, MEME CARE COORDINATION 07/03/2024 Nurse Triage [address] [address] Flo Mckeon MD Home Care; Catheter Problem (NO flow since 0430) 07/03/2024 Home Care Visit [address] [address] Elvi Leger, RN CARE COORDINATION 07/03/2024 Nurse Triage [address] [address] Flo Mckeon MD Ostomy 07/02/2024 1:00 PM CDT Home Care Visit [address] [address] Priscilla Richardson, MEME SN - HOME VISIT 07/02/2024 11:00 AM CDT Home Care Visit [address] [address] Haven Spears INSURANCE VERIFY REP - HOME VISIT 06/30/2024 11:00 AM CDT Home Care Visit [address] [address] Nimco Palacios INSURANCE VERIFY REP - HOME VISIT 06/28/2024 2:00 PM CDT Home Care Visit [address] [address] Rupinder Canchola RN SN - HOME VISIT 06/28/2024 11:00 AM CDT Home Care Visit [address] [address] Nimco Palacios INSURANCE VERIFY REP - HOME VISIT 06/25/2024 2:15 PM CDT Home Care Visit [address] [address] Nimco Palacios INSURANCE VERIFY REP - HOME VISIT 06/25/2024 1:00 PM CDT Home Care Visit [address] [address] Diana Keen RN SN - HOME VISIT 06/23/2024 11:00 AM CDT Home Care Visit [address] [address] Nimco Palacios INSURANCE VERIFY REP - HOME VISIT 06/22/2024 12:30 PM CDT Home Care Visit [address] [address] Negin Pizarro RN SN - LONG VISIT (>90 MINUTES) 06/22/2024 Home Care Visit [address] [address] Rupinder Canchola RN CARE COORDINATION 06/22/2024 Home Care Visit [address] [address] Sol Christine, RN SN - WOUND/OSTOMY CHART CONSULT 06/21/2024 12:30 PM CDT Home Care Visit [address] [address] Nimco Palacios INSURANCE VERIFY REP - HOME VISIT 06/21/2024 Home Care Visit [address] [address] Fabi Billingsley, RN CARE COORDINATION 06/20/2024 12:00 PM CDT Home Care Visit [address] [address] Simona Guy, MEME SN - OASIS START OF CARE 06/20/2024 Plan of Care Documentation [address] [address] 06/18/2024 Transcribe Orders [address] [address] Roshan Myers PA-C 05/30/2024 Home Care Visit [address] [address] Rupinder Canchola, RN EPISODE DISCHARGE 05/11/2024 Home Care Visit [address] [address] Rupinder Canchola RN SN - OASIS TRANSFER 05/10/2024 11:30 AM CDT Home Care Visit [address] [address] Rupinder Canchola RN SN - HOME VISIT 05/07/2024 10:00 AM CDT Home Care Visit [address] [address] Nimco Palacios INSURANCE VERIFY REP - HOME VISIT 05/05/2024 1:00 PM CDT Home Care Visit [address] [address] Rupinder Canchola RN SN - HOME VISIT 05/05/2024 11:00 AM CDT Home Care Visit [address] [address] Nimco Palacios INSURANCE VERIFY REP - HOME VISIT 05/04/2024 1:00 PM CDT Home Care Visit [address] [address] Nimco Palacios INSURANCE VERIFY REP - HOME VISIT 05/03/2024 1:00 PM CDT Home Care Visit [address] [address] Rupinder Canchola RN SN - HOME VISIT 04/30/2024 12:30 PM CDT Home Care Visit [address] [address] Erika Mcgill RN SN - HOME VISIT 04/29/2024 9:45 AM CDT Home Care Visit [address] [address] Nimco Palacios INSURANCE VERIFY REP - HOME VISIT 04/28/2024 1:30 PM CDT Home Care Visit [address] [address] Nimco Palacios INSURANCE VERIFY REP - HOME VISIT 04/26/2024 1:00 PM CDT Home Care Visit [address] [address] Rupinder Canchola RN SN - HOME VISIT 04/26/2024 10:00 AM CDT Home Care Visit [address] [address] Nimco Palacios INSURANCE VERIFY REP - HOME VISIT 04/23/2024 12:30 PM CDT Home Care Visit [address] [address] Nimco Palacios INSURANCE VERIFY REP - HOME VISIT 04/23/2024 10:00 AM CDT Home Care Visit [address] [address] Vickie Pabon LPN CHILD WELFARE ASSISTANT - HOME VISIT 04/22/2024 Orders Only [facility] [address] [place] [address] Lisa Skinner MD <No scans attached> 04/21/2024 11:30 AM CDT Home Care Visit [address] [address] Rupinder Canchola RN SN - HOME VISIT 04/21/2024 9:00 AM CDT Home Care Visit [address] [address] Nimco Palacios INSURANCE VERIFY REP - HOME VISIT 04/21/2024 Home Care Visit [address] [address] Sol Christine, MEME CARE COORDINATION 04/19/2024 3:00 PM CDT Home Care Visit [address] [address] Rupinder Canchola RN SN - HOME VISIT 04/19/2024 11:00 AM CDT Home Care Visit [address] [address] Nimco Palacios INSURANCE VERIFY REP - HOME VISIT from Last 3 Months Social History Tobacco [...] Sign Reading Time Taken Comments Blood Pressure 110/60 07/19/2024 1:09 PM CDT Pulse 68 07/19/2024 1:09 PM CDT Temperature 36.8 ??C (98.3 ??F) 07/16/2024 4 :06 PM CDT Respiratory Rate 20 07/19/2024 1:09 PM CDT Oxygen Saturation 98% 07/19/2024 1:0 9 PM CDT Inhaled Oxygen Concentration - - Weight 64.4 kg (141 lb 15.6 oz) 03/30/2024 6:00 AM CDT Height 152.4 cm (5') 03/29/2024 8:00 PM CDT FV chart 03/06/2024 Body Mass Index 27.73 03/29/2024 8:00 PM CDT Plan of Treatment Upcoming Encounters Date Type Department Care Team (Late st Contact Info) Description 07/21/2024 8:45 AM CDT Home Care Visit [address] [address] Nimco Palacios 07/23/2024 10:00 AM CDT Home Care Visit [facility] [address] [place] [address] Nimco Palacios 07/23/2024 12:30 PM CDT Home Care Visit [facility] [address] [place] [address] Rupinder Canchola RN [address] [place] [address] 07/26/2024 1:00 AM CDT Home Care Visit [facility] [address] [place] [address] Nimco Palacios 07/26/2024 4:00 AM CDT Home Care Visit [facility] [address] [place] [address] Rupinder Canchola RN [address] [place] [address] 07/28/2024 1:00 AM CDT Home Care Visit [facility] [address] [place] [address] Nimco Palacios 07/30/2024 1:00 AM CDT Home Care Visit [facility] [address] [place] [address] Nimco Palacios 07/30/2024 4:00 AM CDT Home Care Visit [facility] [address] [place] [address] Rupinder Canchola RN [address] [place] [address] 08/02/2024 1:00 AM CDT Home Care Visit [facility] [address] [address] Nimco Palacios 08/02/2024 4:00 AM CDT Home Care Visit [facility] [address] [address] Rupinder Canchola, RN [address] [place] [address] 08/04/2024 1:00 AM CDT Home Care Visit [facility] [address] [place] [address] Nimco Palacios 08/06/2024 1:00 AM CDT Home Care Visit [address] [address] Nimco Palacios 08/06/2024 4:00 AM CDT Home Care Visit [address] [address] Rupinder Canchola RN [address] [place] [address] 08/09/2024 1:00 AM CDT Home Care Visit [address] [address] Nimco Palacios 08/09/2024 4:00 AM CDT Home Care Visit [facility] [address] Rupinder Canchola, RN [address] [place] [address] 08/11/2024 1:00 AM CDT Home Care Visit [facility] [address] [address] Nimco Palacios 08/13/2024 1:00 AM CDT Home Care Visit [address] [address] Philip Nimco Vela 08/13/2024 4:00 AM CDT Home Care Visit [facility] [address] [place] [address] Rupinder Canchola RN [address] [place], [place] [phone] 08/17/2024 4:00 AM TRAPPER ANIMAL [facility] [address] [place] [address] Rupinder Canchola, MEME [address] [place], [place] [phone] Health Maintenance Due Date Last Done Comments [...] 12/31/2011 Medicare Wellness for age 65+ 12/31/2011 RSV vaccine for adults or pr egnancy (1 - 1-dose 75+ series) 2021 COVID-19 vaccine series ( season) Influenza for age 65+ 06/13/2024 Additional Health Concerns Infection Onset Date Last 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
--- OUTSIDE RECORDS SUMMARY | 2024-07-20 11:37 | XMS_ITS ---
Author Organization [facility] Address [address] [place] [address] Care Team Providers Care School Attendance Secretary Name Role Phone Unavailable Unavailable Unavailable Surgery Details Not on file Complications Check Surgery Details section. Procedure Estimated Blood Loss Check Surgery Details section. Procedure Findings Check Surgery Details section. Procedure Specimens Taken Check Surgery Details section.
--- OUTSIDE RECORDS SUMMARY | 2024-07-20 11:37 | XMS_ITS | Encounter Summary ---
Author Organization [place] Address [address] [place] [address] Care Team Providers Care Backhoe Operator Name Role Phone Flo Mckeon MD Primary Care Provider [phone] Encounter Details Date Type Department Care Team [...] documented as of this encounter Care Teams Backhoe Operator Relationship Specialty Start Date End Date Flo Mckeon MD [address] [address] PCP - General Family Medicine 03/09/24 documented as of this encounter
--- OUTSIDE RECORDS SUMMARY | 2024-07-20 11:37 | XMS_ITS | Encounter Summary ---
Author Organization [place] Address [facility] [place] [address] Care Team Providers Care Engagement Manager Name Role Phone Flo Mckeon MD Primary Care Provider Reason for Visit * Reason Comments Wound Infection * Auth/Cert Specialty Diagnoses / Procedures Referred By Contac t Referred To Contact EMERGENCY MEDICINE Diagnoses Acute cystitis with hematuria Osteomyelitis of coccyx (H) Emergency Dept [address] [facility] [place] [address] Referral ID Status Reason Start Date Expiration Date Visits Re quested Visits Authorized [id number] 1 1 Encounter Details Date Type Department Care Team (Late st Contact Info) Description 05/18/2024 5:29 PM CDT - 05/18/2024 8:14 PM CDT Surgery [facility] PeriOP Services [address] [place] [address] Peter Alfredo MD [facility] [address] [facility] [place] [id number] Laparoscopic diverting colostomy Surgery Details Date/Time Status Location OR Service Patient Class Case Cl ass Case Type Trauma Case? 05/18/24 5:29 PM Posted OR OR M 42 [place]-Rectal Inpatient NEST 4 - Urgent (within 12hrs) Panel 1 Procedure LRB Anes Op Region Wound Class Comments Laparoscopic diverting colostomy N/A General Abdomen II-Clean Contaminated Surgeon Surgeon Role Service Panel Peter Alfredo MD Primary [place]-Rectal 1 documented in this encounter Social History [...] Garcia DO - 05/26/2024 1:09 PM CDT [facility] Hospitalist Discharge Summary Date of Admission: [...] recommended labs and tests Follow up with senior care physician. The following labs/tests are recommended: CBC [...] FROILAN Robles at [facility] Rectal [facility] clinic on 06/08/24 at 11:00 am for a stoma check. Follow up with Dr. Alfredo at [facility] clinic on 07/07/24 at 1:40 pm for a post-op visit. Call the office at [phone] if you need to reschedule either appointment. Clinic address: [facility] [place] [address] Patient to contact the CRS office at [phone] if not has an appointment already. Unresulted [...] History of MRSA infection. -Recent admission at [facility] between 03/07-03/14/2024 for septic shock secondary to E. coli UTI with bacteremia, readmitted at [facility] on 03/21/2024 with severe sepsis and another admission at [facility] between 03/24-03/31 2024 -Presented here [...] fibrillation not on anticoagulation. # Hypertension - ROBOTICS SPECIALIST Lasix held on admission. Restarted on 05/12/2024 - Continue ROBOTICS SPECIALIST Toprol, switch to immediate release 25 mg twice daily with hold parameters. - ROBOTICS SPECIALIST not on aspirin or statin. Defer further cardiac workup to outpatient. # Hypokalemia-resolved -Replace per protocol # Obstructive sleep apnea -Uses BiPAP as outpt. Has chronic CO2 retention. -BiPAP per home settings. # Rheumatoid arthritis -Continue on ROBOTICS SPECIALIST on prednisone 10 mg daily. # Chronic Anemia likely secondary to chronic disease. -Baseline hemoglobin 9-10 range. -Hemoglobin at around previous baseline. # Incidental renal stones. CT - No hydronephrosis. Nonobstructive right renal pelvic stones including 13 mm right UPJ calculus. - Recommend follow-up with urology as outpatient if symptomatic. # Diabetes mellitus with a hemoglobin A1c of 6.6. -ROBOTICS SPECIALIST not on meds. BS are 94 - [...] minutes discharging this patient. Forrest Garcia DO [facility] SURGERY [address] [facility] [address] Physical Exam Vital Signs: Temp: 98.9 ??F [...] FROILAN Robles at Colon & Rectal Surgery [facility] on 06/08/24 at 11:00 am for a stoma check. Follow up with Dr. Alfredo at [facility] Rectal [facility] on 07/07/24 at 1:40 pm for a post-op visit. Call the office at [phone] if youneed to reschedule either appointment. Clinic address: [facility] Rectal [facility] [address] [facility] [address] [place] [id number] Patient to contact the CRS office at [phone] if not has an appointment already. General info for SNF Length of Stay Estimate: Short Term Care: Estimated # of Days <30 Condition at Discharge: Stable Level of care:skilled Rehabilitation Potential: Fair Admission H&P remains valid and up-to-date: Yes Recent Chemotherapy: N/A Use Custodial Standing Orders: Yes Mantoux instructions Give two-step Mantoux (PPD) Per Facility Policy Yes Follow Up and recommended labs and tests Follow up with senior care physician. The following labs/tests are recommended: CBC [...] Narrative EXAM: CT CHEST/ABDOMEN/PELVIS W CONTRAST LOCATION: [facility] DATE: 05/10/2024 INDICATION: Fever, paraplegia, abdominal [...] from the original note were not included. [facility] Hospitalist PROGRESS NOTE Date of Admission: [...] Patient to contact the CRS office at [phone] if not has an appointment already. Unresulted [...] to pursue diverting colectomy while inpatient. --Admitted [facility] on 03/06 -03/14/2024 for septic shock secondary to E. coli UTI with bacteremia, stage IV right ischial tuberosity decubitus ulcer. --Readmitted at [facility] on 03/21/[address] showed a sacral decubitus ulcer extending to the sacrum, right deep gluteal soft tissue tunneling and lower gluteal/upper thigh ulceration extending to the ischial tuberosity with evidence of chronic osteomyelitis. General surgery, infectious disease followed and recommended transfer to tertiary center. ---Was admitted at [facility] 03/24 to 03/31/2024. General surgery, [...] discussed above. Chronic pain on narcotics. Continue ROBOTICS SPECIALIST Tylenol. Continue ROBOTICS SPECIALIST gabapentin. Continue ROBOTICS SPECIALIST as needed oxycodone, minimize use as able [...] atelectasis, effusions, or pneumothorax. Moderate atherosclerotic disease. ROBOTICS SPECIALIST Lasix held on admission. Restarted on 05/12/2024 Continue ROBOTICS SPECIALIST Toprol, switch to immediate release 25 mg twice daily with hold parameters. ---- ROBOTICS SPECIALIST not on aspirin or statin. Defer further cardiac workup to outpatient. Telemetry monitoring. Intake output monitoring, daily weights. Hypokalemia. Potassium replacement ordered Potassium normal at 4.1 Obstructive sleep apnea Uses BiPAP as outpt. Has chronic CO2 retention. Resume BiPAP per home settings. Rheumatoid arthritis Continue on ROBOTICS SPECIALIST on prednisone 10 mg daily. Used to take methotrexate, but intolerant/side effects. Chronic Anemia likely secondary to chronic disease. Baseline hemoglobin 9-10 range. Hemoglobin at around previous baseline. Incidental renal stones. CT - No hydronephrosis. Nonobstructive right renal pelvic stones including 13 mm right UPJ calculus. Recommend follow-up with urology as outpatient if symptomatic. Diabetes mellitus with a hemoglobin A1c of 6.6. ROBOTICS SPECIALIST not on meds. BS were 93-200 Diet [...] minutes discharging this patient. Anna Fajardo MD [place] [address] [place] [address] , [address] [facility] [address] Physical Exam Vital Signs: Temp: 98.3 ??F [...] Patient to contact the CRS office at [phone] if not has an appointment already. Diet [...] C. difficile Antigen and Toxins A/B EIA [[id number]] Stool from Per Rectum Final result Component Value C Difficile Toxin B by PCR Negative A negative result does not exclude actual disease due to C. difficile and may be due to improper collection, handling and storage of the specimen or the number of organisms in the specimen is below the detection limit of the assay. 05/12/2024 1220 05/13/2024 1046 Urine Culture [[id number]] Urine, Cristobal Catheter Final result Component Value Culture No Growth 05/10/2024 1448 05/15/2024 1531 Blood Culture Peripheral Blood [[id number]] Peripheral Blood Final result Component Value Culture No Growth 05/10/2024 1446 05/10/2024 1608 Symptomatic Influenza A/B, RSV, & SARS-CoV2 PCR (COVID-19) Nasopharyngeal [[id number]] Swab from Nasopharyngeal Final result Component Value [...] Narrative EXAM: CT CHEST/ABDOMEN/PELVIS W CONTRAST LOCATION: [facility] DATE: 05/10/2024 INDICATION: Fever, paraplegia, abdominal [...] right ischium. No drainable fluid collections. 2. Cirstobal catheter within the vagina. 3. Nonobstructing right [...] Cover with Mepilex 4x4. Follow up with risk management specialist in 2-4 weeks. Ok to use [...] frequently. 9. OK to take stairs. Supplies: [employer] New Kuailexue 2-pc system (up to 20 pouch changes/month) 1. Barrier: New Image CeraPlus 70mm soft convex cut-to-fit with tape - #61178 (5/box = 2 box/month) 2a. Pouch: 70mm closed pouch, beige, with filter, 'quiet-wear' - #42055 (30/box = 2 box/month) and/or 2b. Pouch: 70mm drainable lock n roll, beige, with filter - #70637 (10/box = 1-2 box/month) 3. Ring: [place] 2 CeraRing (if needed for leakage; as stool thickens you might not need the ring anymore) - #7905 (10/box = 1 box/month) As needed 4. 3M Cavilon no-sting skin barrier (optional if needed) - #2924 (50/box = 1 box as needed) 5. Stoma powder (if needed) - #7906 (1 bottle as needed) 6. Odor eliminator & lubricant (optional) - #27495 (8oz bottle) or #46624 (8ml packets, 50 in abox) (1 as [...] Clinic room is on 1st floor in [facility] - check in at [place] Desk in [facility] phone # [phone] (Mon - Fri) - call for any [...] as pt has tape huff and breakdown. [facility] facility will assess and change dressing tonight, so it is secured with paper tape and a brief * Elizabeth Hector LSW - 05/26/2024 11:33 AM CDT Care Management Discharge Note Discharge Date: 05/26/2024 Discharge Disposition: Group Home Facility Discharge Services: Discharge DME: Discharge Transportation: Private pay costs discussed: Not applicable Does the patient's insurance plan have a 3 day qualifying hospital stay waiver? No PAS Confirmation Code: [id number] Patient/family educated on Medicare website which has current facility and service quality ratings:yes Education Provided on the Discharge Plan: Persons Notified of Discharge Plans: DIGITAL PHOTOGRAPHER, Charge, patient, facility, family Patient/Family in Agreement with the Plan: yes Handoff Referral Completed: No Additional Information: Odd Shoe Examiner received confirmation that [employer] insurance auth received. [facility] Faxed meds and PAS, let daughter and nurse know patient was discharging. Patient may need to leave her wheelchair and some belongings here and daughter will peanut picker from [facility]. CHANTE Smiley * Izzy Marie RN - 05/26/2024 10:35 AM CDT Images from the original note were not included. [facility] Nurse Inpatient Assessment Consulted for: Colostomy, buttock wounds Summary: New colostomy 05-18-24 for improved wound hygiene. Stoma viable, output WNL. Supplies for discharge in room. Patient reports daughterElvi is primary career and transition teacher who will perform ostomy changes. 05/26 pt [...] Surgery Date: 05/18/24 Surgeon: Dr. Peter Alfredo [facility]: [facility] Pouching system in place on assessment today: [place] two piece soft convex Pouch barrier status: intact Pouch last changed/wear time: 05/18, 05/20, 05/24, 05/26 Reason for pouch change today: routine schedule and assessment Effectiveness of current pouching/ supply plan: Recommend continuing current plan Change made with ostomy management today: No Pouching system placed today: [place] 2pc 70mm soft convex with ring and [...] Pain: tender Is patient still on a STRUCTURAL STEEL SHOP SUPERVISOR? No Ostomy education assessment: Participant of teaching [...] order supplies afterdischarge , Ordered samples from eye physician after gaining consent from patient/caregiver, Discussed how [...] areas Positioning Equipment: as needed Fluidized positioner (#[id number] or #[id number]- large) to help maintain side lying position. Chair positioning: Chair cushion (#[id number]) , Assist patient to reposition hourly, and [...] system: ostomy supplies pouches: Alessia 70 FECAL (381774) ostomy supplies barrier: [place] 70mm SOFT CONVEX (392919) Accessories used: WOC ostomy accessories: 2 Cera Barrier Ring (741266) Frequency of pouch changes: PRN leakage and [...] Izzy Marie RN CWOCN -Securely message with [employer] ([facility] [employer]) [facility] Office (messages checked periodically Mon-Fri 8a-4p) * Elizabeth Hector, [facility] - 05/26/2024 10:07 AM CDT Care Management Follow Up Length of Stay (days): 16 Expected Discharge Date: 05/26/2024 Concerns to be Addressed: Patient plan of care discussed at interdisciplinary rounds: Yes Anticipated Discharge Disposition: Group Home Facility Anticipated Discharge Services: Anticipated Discharge DME: Patient/family educated on Medicare website which has current facility and service quality ratings:yes Education Provided on the Discharge Plan: Patient/Family in Agreement with the Plan: yes Referrals Placed by CM/SW: [facility] Line, Post Acute Facilities, Transportation Private pay costs discussed: Not applicable Additional Information: Odd Shoe Examiner completed pas in anticipation of discharge. PAS-RR D: Per [facility] regulation, SW completed and submitted PAS-RR to [place] Board on Aging Direct Connect via the [facility] Line. PAS-RR confirmation # is : [id number] I: DAISY spoke with PT and they are aware a PAS-RR has been submitted. DAISY reviewed with Pt that they may be contacted for a follow up appointment within 10 days of hospital discharge if their SNF stay is < 30 days. Contact information for [facility] was also provided. A: Pt verbalized understanding. P: Further questions may be directed to [facility] at # , option #4 for PAS-RR staff. CHANTE Smiley * Mateo Henry RN - 05/26/2024 6:36 AM CDT Date & Time: 05/25/24, 6612-6075 Surgery/POD#: POD7/8 diverting colostomy Hx: Chronic osteomyelitis, [...] (05/26) Significant Information: Possible discharge 05/26 to [facility] TCU pending insurance approval.Ride is currently scheduled for [id number]. Per patient, upper extremity mobility is below baseline and would appreciate PT assessment for rehab suitability as patient's baseline strength previously made her an assist of 1 for home ADLs. * Forrest Garcia DO - 05/25/2024 3:52 PM CDT [facility] Medicine Progress Note - Hospitalist Service [...] History of MRSA infection. -Recent admission at [facility] between 03/07-03/14/2024 for septic shock secondary to E. coli UTI with bacteremia, readmitted at [facility] on 03/21/2024 with severe sepsis and another admission at [facility] between 03/24-03/31 2024 -Presented here [...] fibrillation not on anticoagulation. # Hypertension - ROBOTICS SPECIALIST Lasix held on admission. Restarted on 05/12/2024 - Continue ROBOTICS SPECIALIST Toprol, switch to immediate release 25 mg twice daily with hold parameters. - ROBOTICS SPECIALIST not on aspirin or statin. Defer further cardiac workup to outpatient. # Hypokalemia-resolved -Replace per protocol # Obstructive sleep apnea -Uses BiPAP as outpt. Has chronic CO2 retention. -BiPAP per home settings. # Rheumatoid arthritis -Continue on ROBOTICS SPECIALIST on prednisone 10 mg daily. # Chronic Anemia likely secondary to chronic disease. -Baseline hemoglobin 9-10 range. -Hemoglobin at around previous baseline. # Incidental renal stones. CT - No hydronephrosis. Nonobstructive right renal pelvic stones including 13 mm right UPJ calculus. - Recommend follow-up with urology as outpatient if symptomatic. # Diabetes mellitus with a hemoglobin A1c of 6.6. -ROBOTICS SPECIALIST not on meds. BS are 94 - [...] Ready Now Forrest Garcia DO Hospitalist Service [facility] Securely message with [employer] (more info) Text page via [employer] Paging/Directory Interval History Patient seen and examined. [...] from the original note were not included. [facility] Nurse Inpatient Assessment Consulted for: Colostomy, buttock wounds Summary: New colostomy 05-18-24 for improved wound hygiene. Stoma viable, output WNL. Supplies for discharge in room. Pouch changed 05/24, no family present. Patient reports daughterElvi is primary career and transition teacher who will perform ostomy changes POA wounds [...] Surgery Date: 05/18/24 Surgeon: Dr. Peter Alfredo [facility]: [facility] Pouching system in place on assessment today: [place] two piece soft convex Pouch barrier status: intact Pouch last changed/wear time: 05/18, 05/20, 05/24 Reason for pouch change today: pouch not changed today Effectiveness of current pouching/ supply plan: Needs soft convexity at discharge Change made with ostomy management today: No Pouching system placed today: Alessia 2pc 57mm soft convex with ring and [...] Pain: tender Is patient still on a STRUCTURAL STEEL SHOP SUPERVISOR? No Ostomy education assessment: Participant of teaching [...] order supplies afterdischarge , Ordered samples from eye physician after gaining consent from patient/caregiver, Discussed how and when to make an outpatient WO nurse appointment after discharge, Prepared for discharge home with home care, and Discuss signs/symptoms of when to seek medical attention Preparation for discharge still needed: reinforce teaching; family and pt need hands-on practice Pt support system on discharge: niece and daughter [facility] recommend home care? Yes Wound location: buttock, [...] areas Positioning Equipment: as needed Fluidized positioner (#[id number] or #[id number]- large) to help maintain side lying position. Chair positioning: Chair cushion (#[id number]) , Assist patient to reposition hourly, and [...] system: ostomy supplies pouches: Alessia 70 FECAL (347101) ostomy supplies barrier: [place] 70mm SOFT CONVEX (125415) Accessories used: [facility] ostomy accessories: 2 Cera Barrier Ring (804357) Frequency of pouch changes: PRN leakage and [...] Current support surface: Standard Low air loss (MRASHALL pump, Isolibrium, Pulsate) Containment of urine/stool: Indwelling [...] Shear: 1-->problem Brandon Score: 13 Jessica Rudolph [facility] Dept. Vocera- Contact [facility] Nurse (Zaynab) via Vocera Dept. Office Number: [phone] * Elizabeth Hector LSW - 05/25/2024 1:13 PM CDT Care Management Follow Up Length of Stay (days): 15 Expected Discharge Date: 05/26/2024 Concerns to be Addressed: Patient plan of care discussed at interdisciplinary rounds: Yes Anticipated Discharge Disposition: Group Home Facility Anticipated Discharge Services: Anticipated Discharge DME: Patient/family educated on Medicare website which has current facility and service quality ratings: Education Provided on the Discharge Plan: Patient/Family in Agreement with the Plan: yes Referrals Placed by CM/SW: [facility] Line, Post Acute Facilities, Transportation Private pay costs discussed: Not applicable Additional Information: [facility] updated that they have not received auth yet, typewriter aligner rescheduled transport to tomorrow between 4935 - 5374 updated patient CHANTE Smiley * Yarelis Hoskins [...] 59.6 kg (admit 05/10) Estimated Energy Needs: 3568-2214 kcals (25-30 Kcal/Kg) Justification: maintenance, wound healing [...] Yarelis Hoskins RD, LD Clinical Dietitian - [facility] * Elizabeth Hector LSW - 05/25/2024 [...] pay costs discussed: Not applicable Additional Information: Odd Shoe Examiner called [facility] and spoke to Mary They still have not heard back about insurance authorization. Patient could still admit today if they do get authorization from [employer] if not we will have to post pone until tomorrow. Odd Shoe Examiner updated Elvi - patients daughter as she needs to peanut picker some items from the room. ADD - typewriter aligner rescheduled transportation to between 3:30 - 4:30 [...] Mobility Bed Mobility rolling left Rolling Left [place] (Bed Mobility) 2 person assist;moderate assist (50% patient effort) Assistive Device (Bed Mobility) draw sheet;bed rails Transfers Transfer Comments dep dustin lift Activities of Daily Living BADL Assessment/Intervention feeding (pt dep for all other ADLs) Eating/Self Feeding [place] Level (Feeding) set up Comment, (Feeding) seated [...] Evaluation Time OT Eval, Low Complexity Minutes (98387) 20 OT Goals Therapy Frequency (OT) 3 [...] Therapeutic Activity Therapeutic Activities Therapeutic Activity Minutes (94955) 8 Treatment Detail/Skilled Intervention extended time with [...] untimed services) 28 * Leela Degroot, AMIRAH LICENSE ISSUER - 05/25/2024 7:18 AM CDT Images from the original note were not included. [facility] ACUTE PAIN SERVICE CONSULTATION [facility] Text Page Pain Via [facility] Leela Assessment and Plan Prerna Major [...] and concerns addressed to patient's satisfaction. NUBIA BowerC,GIZZARD SKIN REMOVER,LICENSE ISSUER,ACHPN Secure messaging with [email or web address] Paging/Directory [facility] Hours 8-4:00 Friday-Friday after 3:30 contact hospital service covering provider * Mateo Henry RN - 05/25/2024 6:23 AM CDT Date & Time: 05/24/24, 8897-6763 Surgery/POD#: POD6/7 diverting colostomy Hx: Chronic osteomyelitis, decubitus ulcers, neurogenic bladder w/ chronic cirstobal, RA, HUI, HFpEF, Afib, MRSA infection Behavior [...] Significant Information: [facility] pending PT/OT to see for insurance approval. Ride is currently scheduled for between 7004-9603. * Maribel Clayton RN - 05/24/2024 11:50 [...] DC Date: Plan to discharge tomorrow to [facility] T[facility] * Elizabeth Hector LSW - [...] pay costs discussed: Not applicable Additional Information: Odd Shoe Examiner received message from [facility] that they can accept patient into their TCU. They willrun her insurance auth for acceptance. They asked typewriter aligner to schedule a ride for tomorrow. Odd Shoe Examiner will update patient Odd Shoe Examiner arranged tentative transport using [employer] stretcher, patient aware of costs, ride time is for between 1410 - 1450 [facility] noticed patient does not have Pt/OT notes on file and may need an assessment in order to get auth from insurance. Odd Shoe Examiner sent provider a message asking for PT/OT to see CHANTE Smiley * Leela Degroot, AMIRAH LICENSE ISSUER - 05/24/2024 11:45 AM CDT Images from the original note were not included. [facility] ACUTE PAIN SERVICE [facility], [facility], [facility], [place] [facility] Progress Note Assessment/Plan: Assessment/Plan: Prerna Major [...] procedure. Patient is familiar to this typewriter aligner please see note from 05/12/24 for details [...] Senna-docusate -Opioid prescriber Flo Lanier MD -[place] TECHNOLOGY PROFESSIONAL pulled from system on no controlled substance note . Discussed by patrice Mars PharmD covering floor and verified script of Oxycodone at last discharge and othe script of Oxycodone consistently from [facility] This indicates discrepancy Discharge Recommendations - [...] oz) 63.2 kg (139 lb 5.3 oz) 08/12/24 0649 Weight: 64 kg (141 lb 1.5 [...] ACHPN, PGMT- Acute Care Pain Management Program [facility] Friday-Friday 8a-4p Page via [employer] or [employer] * Elizabeth Hector LSW - 05/24/2024 11:27 [...] pay costs discussed: Not applicable Additional Information: Odd Shoe Examiner checked on pending referral for TCU with [facility]. They have multiple locations. Aetnainsurance is very limited The following are pending referrals [employer] [facility] [place] ([facility]) Pending - Request Sent N/A [address] [facility] [address] -- Internal Comment last updated by Roel Holcomb MA 05/24/2024 8:05 AM 05/24 1156 sent email to admissions ~ap [facility] ([facility]) Pending - Request Sent N/A [address]14 [facility] [address] [phone] -- [facility] ([facility]) Pending - Request Sent N/A [address] [facility] [address] -- [facility] () Pending - Request Sent N/A [address] [facility] [address] -- Current Capacity last updated by Paul Tang RN on 05/13/2024 10:01 AM Admissions: Mary [phone] Monie [phone] - [facility] ([facility]) Pending - Request Sent N/A [address] [facility] [address] [phone] -- [facility] () Pending - Request Sent N/A [address] [facility] [address] [phone] -- Current Capacity last updated by Mercy Aguilar MA on 04/06/2024 9:55 AM Non smoking - Send full referral - *[facility] HESHAM: Avery Lopez ph. [phone] (note that referral is for Ali)* Katie Alexander ([facility]) Pending - Request Sent N/A [address] [facility] [address] -- CHANTE Smiley * Izzy Marie RN - 05/24/2024 10:57 AM CDT Images from the original note were not included. [facility] Nurse Inpatient Assessment Consulted for: Colostomy, buttock [...] a day on discharge this is acceptable. [facility] planning to follow-up on wounds/plan on 05/25 [...] Surgery Date: 05/18/24 Surgeon: Dr. Peter Alfredo [facility]: [facility] Pouching system in place on assessment today: [place] two piece Pouch barrier status: intact Pouch last changed/wear time: Reason for pouch change today: pouch not changed today Effectiveness of current pouching/ supply plan: Needs soft convexity at discharge Change made with ostomy management today: No Pouching system placed today: [place] 2pc 57mm flat with ring and lock [...] Pain: tender Is patient still on a STRUCTURAL STEEL SHOP SUPERVISOR? No Ostomy education assessment: Participant of teaching [...] order supplies afterdischarge , Ordered samples from eye physician after gaining consent from patient/caregiver, Discussed how and when to make an outpatient [facility] nurse appointment after discharge, Prepared for discharge home with home care, and Discuss signs/symptoms of when to seek medical attention Preparation for discharge still needed: reinforce teaching; family and pt need hands-on practice Pt support system on discharge: niece and daughter [facility] recommend home care? Yes Buttock assessment copied [...] areas Positioning Equipment: as needed Fluidized positioner (#[id number] or #[id number]- large) to help maintain side lying position. Chair positioning: Chair cushion (#[id number]) , Assist patient to reposition hourly, and [...] periwound skin, let dry 4. Wet some orsy roll gauze or kerlix with Dakins solution, [...] system: ostomy supplies pouches: Alessia 70 FECAL ([id number]) ostomy supplies barrier: Alessia 70mm SOFT CONVEX (004012) Accessories used: WOC ostomy accessories: 2 Cera Barrier Ring ([id number]) Frequency of pouch changes: PRN leakage and [...] Izzy Marie RN CWOCN -Securely message with [employer] ([facility] [employer]) Preferred -[facility] Office (messages checked periodically Mon-Fri 8a-4p) * Chris Son MD - 05/24/2024 9:41 AM CDT [facility] Medicine Progress Note - Hospitalist Service [...] History of MRSA infection. -Recent admission at [facility] between 03/07-03/14/2024 for septic shock secondary to E. coli UTI with bacteremia, readmitted at [facility] on 03/21/2024 with severe sepsis and another admission at [facility] between 03/24-03/31 2024 -Presented here [...] fibrillation not on anticoagulation. # Hypertension - ROBOTICS SPECIALIST Lasix held on admission. Restarted on 05/12/2024 - Continue ROBOTICS SPECIALIST Toprol, switch to immediate release 25 mg twice daily with hold parameters. - ROBOTICS SPECIALIST not on aspirin or statin. Defer further cardiac workup to outpatient. # Hypokalemia-resolved -Replace per protocol # Obstructive sleep apnea -Uses BiPAP as outpt. Has chronic CO2 retention. -BiPAP per home settings. # Rheumatoid arthritis -Continue on ROBOTICS SPECIALIST on prednisone 10 mg daily. # Chronic Anemia likely secondary to chronic disease. -Baseline hemoglobin 9-10 range. -Hemoglobin at around previous baseline. # Incidental renal stones. CT - No hydronephrosis. Nonobstructive right renal pelvic stones including 13 mm right UPJ calculus. - Recommend follow-up with urology as outpatient if symptomatic. # Diabetes mellitus with a hemoglobin A1c of 6.6. -ROBOTICS SPECIALIST not on meds. BS are 94 - [...] for evaluation. CHRIS SON MD Hospitalist Service [facility] Securely message with [employer] (more info) Text page via [facility] Paging/Directory Interval History -Afebrile and hemodynamically [...] Son MD - 05/23/2024 8:50 AM CDT [facility] Medicine Progress Note - Hospitalist Service [...] History of MRSA infection. -Recent admission at [facility] between 03/07-03/14/2024 for septic shock secondary to E. coli UTI with bacteremia, readmitted at [facility] on 03/21/2024 with severe sepsis and another admission at [facility] between 03/24-03/31 2024 -Presented here [...] fibrillation not on anticoagulation. # Hypertension - ROBOTICS SPECIALIST Lasix held on admission. Restarted on 05/12/2024 - Continue ROBOTICS SPECIALIST Toprol, switch to immediate release 25 mg twice daily with hold parameters. - ROBOTICS SPECIALIST not on aspirin or statin. Defer further cardiac workup to outpatient. # Hypokalemia-resolved -Replace per protocol # Obstructive sleep apnea -Uses BiPAP as outpt. Has chronic CO2 retention. -BiPAP per home settings. # Rheumatoid arthritis -Continue on ROBOTICS SPECIALIST on prednisone 10 mg daily. # Chronic Anemia likely secondary to chronic disease. -Baseline hemoglobin 9-10 range. -Hemoglobin at around previous baseline. # Incidental renal stones. CT - No hydronephrosis. Nonobstructive right renal pelvic stones including 13 mm right UPJ calculus. Recommend follow-up with urology as outpatient if symptomatic. # Diabetes mellitus with a hemoglobin A1c of 6.6. -ROBOTICS SPECIALIST not on meds. BS are 94 - [...] TCU placement. CHRIS SON MD Hospitalist Service [facility] Securely message with [employer] (more info) Text page via [facility] Paging/Directory Interval History -Afebrile and hemodynamically [...] Son MD - 05/22/2024 3:53 PM CDT [facility] Medicine Progress Note - Hospitalist Service [...] History of MRSA infection. -Recent admission at [facility] between 03/07-03/14/2024 for septic shock secondary to E. coli UTI with bacteremia, readmitted at [facility] on 03/21/2024 with severe sepsis and another admission at [facility] between 03/24-03/31 2024 -Presented here [...] 01/14/2023] Atrial fibrillation not on anticoagulation. Hypertension ROBOTICS SPECIALIST Lasix held on admission. Restarted on 05/12/2024 Continue ROBOTICS SPECIALIST Toprol, switch to immediate release 25 mg twice daily with hold parameters. -ROBOTICS SPECIALIST not on aspirin or statin. Defer further cardiac workup to outpatient. Hypokalemia. -Replace per protocol Obstructive sleep apnea -Uses BiPAP as outpt. Has chronic CO2 retention. -BiPAP per home settings. Rheumatoid arthritis -Continue on ROBOTICS SPECIALIST on prednisone 10 mg daily. Chronic Anemia likely secondary to chronic disease. -Baseline hemoglobin 9-10 range. -Hemoglobin at around previous baseline. Incidental renal stones. CT - No hydronephrosis. Nonobstructive right renal pelvic stones including 13 mm right UPJ calculus. Recommend follow-up with urology as outpatient if symptomatic. Diabetes mellitus with a hemoglobin A1c of 6.6. -ROBOTICS SPECIALIST not on meds. BS are 94 - [...] TCU placement. CHRIS SON MD Hospitalist Service [facility] Securely message with [employer] (more info) Text page via [employer] Paging/Directory Interval History -Afebrile and hemodynamically stable [...] from the original note were not included. [facility] Nurse Inpatient Assessment Consulted for: Colostomy, buttock [...] Surgery Date: 05/18/24 Surgeon: Dr. Peter Alfredo [facility] Pouching system in place on assessment today: Alessia two piece Pouch barrier status: intact Pouch last changed/wear time: Reason for pouch change today: pouch not changed today Effectiveness of current pouching/ supply plan: Needs soft convexity at discharge Change made with ostomy management today: No Pouching system placed today: [place] 2pc 57mm flat with ring and lock [...] discussed 05/21 Is patient still on a STRUCTURAL STEEL SHOP SUPERVISOR? No Ostomy education assessment: Participant of teaching [...] order supplies afterdischarge , Ordered samples from eye physician after gaining consent from patient/caregiver, Discussed how [...] areas Positioning Equipment: as needed Fluidized positioner (#[id number] or #44278- large) to help maintain side lying position. Chair positioning: Chair cushion (#[id number]) , Assist patient to reposition hourly, and [...] system: ostomy supplies pouches: Alessia 70 FECAL (007902) ostomy supplies barrier: Alessia 70mm SOFT CONVEX ([id number]) Accessories used: WOC ostomy accessories: 2 Cera Barrier Ring (146373) Frequency of pouch changes: PRN leakage and [...] plan of care with: Patient and Nurse [facility] nurse follow-up plan: weekly for wound follow up assessment, daily follow up for ostomy teaching after surgery Notify [facility] if wound(s) deteriorate. Nursing to notify the Provider(s) and re-consult the [facility] Nurse if new skin concern. DATA: Current [...] Johanny CWOCN 1st choice: Securely message with [employer] ([facility] [employer]) (2nd option: [facility] Office , messages checked periodically Mon- Fri [...] pay costs discussed: Not applicable Additional Information: Odd Shoe Examiner was told by provider that patient may need TCU. Patient has [employer], typewriter aligner met with patient at bedside to discuss choices and options for TCU, provided [employer] list near patients home. Patient reports having bad experiences in previous TCU stays. Patient agreed for typewriter aligner to send referrals to [facility] and Pa [facility]. Referrals sent via [facility] Service Provider Request Status Selected Services Address Phone Fax Patient Preferred [facility] ([facility]) Pending - Request Sent N/A [id number] [facility] [phone] -- Current Capacity last updated by Dayanna Burciaga MA on 11/07/2023 2:12 PM IP Team always send full referral in [facility]. Thank you. [employer] [facility] [place] ([facility]) Pending - Request Sent N/A [address] [facility] [phone] CHANTE Smiley * Stevie Liu MD - 05/21/2024 9:45 AM CDT [facility] Medicine Progress Note - Hospitalist Service [...] History of MRSA infection. -Recent admission at [facility] between 03/07-03/14/2024 for septic shock secondary to E. coli UTI with bacteremia, readmitted at [facility] on 03/21/2024 with severe sepsis and another admission at [facility] between 03/24-03/31 2024 -Presented here [...] 01/14/2023] Atrial fibrillation not on anticoagulation. Hypertension ROBOTICS SPECIALIST Lasix held on admission. Restarted on 05/12/2024 Continue ROBOTICS SPECIALIST Toprol, switch to immediate release 25 mg twice daily with hold parameters. -ROBOTICS SPECIALIST not on aspirin or statin. Defer further cardiac workup to outpatient. Hypokalemia. -Replace per protocol Obstructive sleep apnea -Uses BiPAP as outpt. Has chronic CO2 retention. -BiPAP per home settings. Rheumatoid arthritis -Continue on ROBOTICS SPECIALIST on prednisone 10 mg daily. Chronic Anemia likely secondary to chronic disease. -Baseline hemoglobin 9-10 range. -Hemoglobin at around previous baseline. Incidental renal stones. CT - No hydronephrosis. Nonobstructive right renal pelvic stones including 13 mm right UPJ calculus. Recommend follow-up with urology as outpatient if symptomatic. Diabetes mellitus with a hemoglobin A1c of 6.6. -ROBOTICS SPECIALIST not on meds. BS are 94 - [...] Chart documentation was completed, in part, with [employer] voice-recognition software. Even though reviewed, some grammatical, spelling, and word errors may remain. Stevie Liu MD Hospitalist Service [facility] Text Page 7AM-6PM Securely message with the [employer] Console (learn more here) Text page via [employer] Paging/Directory Interval History Patient complains of significant [...] tablet 1 tablet Oral Q12H [facility] (06/01) Peter Alfredo MD 1 tablet at 05/21/24 0918 diclofenac (VOLTAREN) 1 % topical gel 4 g 4 g Topical TID Peter Alfredo MD 4 g at 05/21/24 0923 enoxaparin ANTICOAGULANT (LOVENOX) injection 40 mg 40 mg Subcutaneous Q24H Peter Alfredo MD 40 mg at 05/20/24 1448 furosemide (LASIX) tablet 40 mg 40 mg Oral Daily Peter Alfredo MD 40 mg at 05/21/24 0916 gabapentin (NEURONTIN) capsule 400 mg 400 mg Oral TID Peter Alfredo MD 400 mg at 05/21/2418 lactobacillus rhamnosus (GG) (CULTURELL) capsule 1 capsule 1 capsule Oral Daily AlfredoPeter cesar MD1 capsule at 05/21/2418 Lidocaine (LIDOCARE) 4 % Patch 3 patch 3 patch Transdermal Q24h AlfredoPeter cesar MD 3 patch at 05/21/2423 methocarbamol (ROBAXIN) tablet 500 mg 500 mg Oral 4x Daily Janak Robledo, EVELIAC 500 mg at 05/21/24916 metoprolol tartrate (LOPRESSOR) [...] Daily Peter Alfredo MD 17 g at 05/21/24916 predniSONE (DELTASONE) tablet 10 mg 10 mg Oral or NG Tube Daily Peter Alfredo MD 10 mg at 05/21/24916 senna-docusate (SENOKOT-S/PERICOLACE) 8.6-50 MG per tablet 2 tablet 2 tablet Oral or NG Tube BID Peter Alfredo MD 2 tablet at 05/21/24 0918 sodium chloride (PF) 0.9% PF flush 10 mL 10 mL Intracatheter Q8H Peter Alfredo MD 10 mL at 05/21/24 0301 sodium chloride (PF) 0.9% PF flush 3 mL 3 mL Intracatheter Q8H AlfredoPeter cesar MD 3 mL at 245 sodium hypochlorite (DAKINS half-strength) external solution Irrigation BID Peter Alfredo MD Given at 05/21/24 09 vitamin C (ASCORBIC ACID) tablet 250 mg 250 mg Oral Daily Peter Alfredo MD 250 mg at 05/21/24917 zinc sulfate (ZINCATE) capsule 220 mg 220 [...] questions/paging, please contact the CRS office at [phone]. Janak Robledo PA-C Colorectal Physician Photogrammetrist [facility] [address] [place] [address] T: [phone] F: [phone] CRS Staff Seen and examined Agree with above. Stoma functioning. Wounds look good. Tolerating diet. Will follow peripherally. Please call with questions. I performed a history and physical examination of the patient and discussed their management with the physician assistant clinical nurse manager. I reviewed the physician assistants note and agree with the documented findings and plan of care. Peter Alfredo MD FACS FASCRS Colorectal Surgeon [facility] [address], [address] [place] [address] T: [phone] F: [phone] Pager: [phone] [email or web address] * Mateo Henry RN - 05/21/2024 5:43 AM CDT Date & Time: 05/20/24, 8903-3548 Surgery/POD#: POD2/3 diverting colostomy Hx: Chronic osteomyelitis, [...] frequently. 9. OK to take stairs. Supplies: [place] New Image 2-pc system (up to 20 pouch changes/month) 1. Barrier: New Image CeraPlus 70mm soft convex cut-to-fit with tape - #98091 (5/box = 2 box/month) 2a. Pouch: 70mm closed pouch, beige, with filter, 'quiet-wear' - #33817 (30/box = 2 box/month) and/or 2b. Pouch: 70mm drainable lock n roll, beige, with filter - #78444 (10/box = 1-2 box/month) 3. Ring: Alessia [...] 6. Odor eliminator & lubricant (optional) - #09921 (8oz bottle) or #24605 (8ml packets, 50 in abox) (1 as [...] Clinic room is on 1st floor in [facility] - [facility] Office phone # [phone] (Fri - Fri) - call for any questions or concerns * Izzy Marie RN - 05/20/2024 12:07 PM CDT Images from the original note were not included. [facility] Nurse Inpatient Assessment Consulted for: Colostomy, buttock [...] Surgery Date: 05/18/24 Surgeon: Dr. Peter Alfredo [facility]: [facility] Pouching system in place on assessment today: [place] one piece and clamp Pouch barrier status: intact Pouch last changed/wear time: 8/6 Reason for pouch change today: ostomy education, [...] with turning Is patient still on a STRUCTURAL STEEL SHOP SUPERVISOR? No Ostomy education assessment: Participant of teaching [...] supplies after discharge , Ordered samples from eye physician after gaining consent from patient/caregiver, Discussed how and when to make an outpatient [facility] nurse appointment after discharge, Prepared for discharge home with home care, and Discuss signs/symptoms of when to seek medical attention Preparation for discharge still needed: review of cares, review of supplies Pt support system on discharge: niece and daughter [facility] recommend home care? Yes Buttock assessment copied [...] areas Positioning Equipment: as needed Fluidized positioner (#[id number] or #18354- large) to help maintain side lying position. Chair positioning: Chair cushion (#[id number]) , Assist patient to reposition hourly, and [...] solution, use a cotton tipped applicator to tuckint wound bases for packing, do NOT over [...] pouching plan: Pouching system: ostomy supplies pouches: [place] 70 FECAL (994897) ostomy supplies barrier: Alessia 70mm SOFT CONVEX (341763) Accessories used: WO ostomy accessories: 2 Cera Barrier Ring (670561) Frequency of pouch changes: PRN leakage and [...] Izzy Marie RN CWOCN -Securely message with [employer] ([facility] [employer]) Preferred -[facility] Office (messages checked periodically Mon-Fri 8a-4p) * Stevie Liu MD - 05/20/2024 11:08 AM CDT [facility] Medicine Progress Note - Hospitalist Service [...] History of MRSA infection. -Recent admission at [facility] between 03/07-03/14/2024 for septic shock secondary to E. coli UTI with bacteremia, readmitted at [facility] on 03/21/2024 with severe sepsis and another admission at [facility] between 03/24-03/31 2024 -Presented here [...] OT evaluation Chronic pain on narcotics. Continue ROBOTICS SPECIALIST Tylenol. Continue ROBOTICS SPECIALIST gabapentin. Continue ROBOTICS SPECIALIST as needed oxycodone, minimize use as able [...] 01/14/2023] Atrial fibrillation not on anticoagulation. Hypertension ROBOTICS SPECIALIST Lasix held on admission. Restarted on 05/12/2024 Continue ROBOTICS SPECIALIST Toprol, switch to immediate release 25 mg twice daily with hold parameters. -ROBOTICS SPECIALIST not on aspirin or statin. Defer further cardiac workup to outpatient. Hypokalemia. -Replace per protocol Obstructive sleep apnea -Uses BiPAP as outpt. Has chronic CO2 retention. -BiPAP per home settings. Rheumatoid arthritis -Continue on ROBOTICS SPECIALIST on prednisone 10 mg daily. Chronic Anemia likely secondary to chronic disease. -Baseline hemoglobin 9-10 range. -Hemoglobin at around previous baseline. Incidental renal stones. CT - No hydronephrosis. Nonobstructive right renal pelvic stones including 13 mm right UPJ calculus. Recommend follow-up with urology as outpatient if symptomatic. Diabetes mellitus with a hemoglobin A1c of 6.6. ROBOTICS SPECIALIST not on meds. BS are 94 - [...] Chart documentation was completed, in part, with [employer] voice-recognition software. Even though reviewed, some grammatical, spelling, and word errors may remain. Stevie Liu MD Hospitalist Service [facility] Text Page 7AM-6PM Securely message with the [employer] Web Console (learn more here) Text page via [employer] Paging/Directory Interval History Endorses slight pain at [...] tablet 1 tablet Oral Q12H [facility] (06/01) Peter Alfredo MD 1 tablet at [...] nurse reports anticipated discharge is tomorrow. Called [facility] ([phone]) to update on anticipated discharge tomorrow; they acknowledged and appreciate update on final plan tomorrow with discharge orders to be faxed to them.Can leave a voice mail message as checked frequently. Jamila Bowser, RN Inpatient Float Sales Product Specialist [facility] * Janak Robledo PA-C - 05/20/2024 [...] questions/paging, please contact the CRS office at [phone]. Janak Robledo PA-C Colorectal Physician Photogrammetrist [facility] [address] [place] [address] Daniela Roberto [address] [address] T: [phone] F: [phone] * Mateo Henry RN - 05/20/2024 6:26 AM CDT Date & Time: 05/19/24, 7802-5188 Surgery/POD#: POD1/2 diverting colostomy Hx: Chronic osteomyelitis, [...] from the original note were not included. [facility] WO Nurse Inpatient Assessment Consulted for: [...] 4 pressure injury wounds Surgery Date: 05/18 Surgeon:[facility]: [facility] Pouching system in place on assessment today: [place] one piece and clamp Pouch barrier status: [...] Pain: denies Is patient still on a STRUCTURAL STEEL SHOP SUPERVISOR? No Ostomy education assessment: Participant of teaching [...] supplies after discharge , Ordered samples from eye physician after gaining consent from patient/caregiver, and Prepared [...] areas Positioning Equipment: as needed Fluidized positioner (#[id number] or #84680- large) to help maintain side lying position. Chair positioning: Chair cushion (#[id number]) , Assist patient to reposition hourly, and [...] Supplies used ~ Pouch: Alessia 70 FECAL (896646) ~ Flange/Barrier/Wafer: [place] 70mm FLAT (335153) ~ Accessories: 2 Adapt Barrier Ring (640329) Question Answer Comment Type of Ostomy Colostomy [...] Johanny CWOCN 1st choice: Securely message with [employer] ([employer] [facility] [employer]) (2nd option: [facility] Office , messages checked periodically Mon- Fri [...] them as she's only been getting the frisian vanilla flavor and would like to rotate the chocolate flavor as well. She had no questions about her low fiber diet while at [facility] but was interested in receiving more low fiber info for when she discharges - Flowsheets show a fair appetite and 1-3 intakes/day of 75-100%. ASSESSED NUTRITION NEEDS: Dosing Weight 59.6 kg (admit 05/10) Estimated Energy Needs: 7451-4858 kcals (25-30 Kcal/Kg) Justification: maintenance, wound healing [...] Liu MD - 05/19/2024 10:01 AM CDT [facility] Medicine Progress Note - Hospitalist Service [...] History of MRSA infection. -Recent admission at [facility] between 03/07-03/14/2024 for septic shock secondary to E. coli UTI with bacteremia, readmitted at [facility] on 03/21/2024 with severe sepsis and another admission at [facility] between 03/24-03/31 2024 -Presented here [...] OT evaluation Chronic pain on narcotics. Continue ROBOTICS SPECIALIST Tylenol. Continue ROBOTICS SPECIALIST gabapentin. Continue ROBOTICS SPECIALIST as needed oxycodone, minimize use as able [...] 01/14/2023] Atrial fibrillation not on anticoagulation. Hypertension ROBOTICS SPECIALIST Lasix held on admission. Restarted on 05/12/2024 Continue ROBOTICS SPECIALIST Toprol, switch to immediate release 25 mg twice daily with hold parameters. -ROBOTICS SPECIALIST not on aspirin or statin. Defer further cardiac workup to outpatient. Hypokalemia. -Replace per protocol Obstructive sleep apnea -Uses BiPAP as outpt. Has chronic CO2 retention. -BiPAP per home settings. Rheumatoid arthritis -Continue on ROBOTICS SPECIALIST on prednisone 10 mg daily. Chronic Anemia likely secondary to chronic disease. -Baseline hemoglobin 9-10 range. -Hemoglobin at around previous baseline. Incidental renal stones. CT - No hydronephrosis. Nonobstructive right renal pelvic stones including 13 mm right UPJ calculus. Recommend follow-up with urology as outpatient if symptomatic. Diabetes mellitus with a hemoglobin A1c of 6.6. ROBOTICS SPECIALIST not on meds. BS are 94 - [...] Chart documentation was completed, in part, with [employer] voice-recognition software. Even though reviewed, some grammatical, spelling, and word errors may remain. Stevie Liu MD Hospitalist Service [facility] Text Page 7AM-6PM Securely message with the Qitio Console (learn more here) Text page via [facility] Paging/Directory Interval History Patient underwent diverting colostomy [...] tablet 1 tablet Oral Q12H [facility] (06/01) Peter Alfredo MD 1 tablet at 05/19/24 0826 diclofenac (VOLTAREN) 1 % topical gel 4 g 4 g Topical TID AlfredoPeter cesar MD 4 g at 05/18/24 0923 doxycycline hyclate (VIBRAMYCIN) capsule 100 mg 100 mg Oral Q12H [facility] (06/01) Peter Alfredo MD 100 mg at 05/19/24 0826 enoxaparin ANTICOAGULANT (LOVENOX) injection 40 mg 40 mg Subcutaneous Q24H AlfredoPeter cesar MD furosemide (LASIX) tablet 40 mg 40 mg Oral Daily AlfredoPeter cesar MD 40 mg at 05/19/24 0826 gabapentin (NEURONTIN) capsule 400 mg 400 mg Oral TID Peter Alfredo MD 400 mg at 05/19/24 0825 [Held [...] questions/paging, please contact the CRS office at [phone]. Sanchez Sparks MD, MS Fellow, Colon & Rectal Surgery [facility] 05/19/2024 7:23 AM CRS Staff Agree with above Peter Alfredo MD FACS FASCRS Colorectal Surgeon [facility] [address], [address] [place] [address] T: [phone] F: [phone] Pager: [phone] [email or web address] * Peter Alfredo MD - 05/18/2024 4:42 PM CDT Images from the original note were not included. CRS Staff Spoke with patient. Does not want shocks or compressions. She is ok to be intubated for procedure and if need be remain on ventilator for necessary period of time to wean to extubate. Peter Alfredo MD [facility] FASCRS Colorectal Surgeon [facility] [address], [address] [place] [address] T: [phone] F: [phone] Pager: [phone] [email or web address] * Johanny Harrison RN - 05/18/2024 3:03 PM CDT Images from the original note were not included. [facility] Nurse Inpatient Assessment Consulted for: 05/16 Ostomy [...] areas Positioning Equipment: as needed Fluidized positioner (#[id number] or #[id number]) to help maintain side lying position. Chair positioning: Chair cushion (#[id number]) , Assist patient to reposition hourly, and [...] to notify the Provider(s) and re-consult the [facility] Nurse if new skin concern. DATA: Current [...] Johanny JUSTICEOCN 1st choice: Securely message with [employer] ([facility]) (2nd option: [facility] Office , messages checked periodically Mon- Fri [...] Fajardo MD - 05/18/2024 1:42 PM CDT [facility] Medicine Progress Note - Hospitalist Service [...] for today, 05/18/24 . recent hospitalizations: --Admitted [facility] on 03/06 -03/14/2024 for septic shock secondary to E. coli UTI with bacteremia, stage IV right ischial tuberosity decubitus ulcer. --Readmitted at [facility] on 03/21/[address] showed a sacral decubitus ulcer extending to the sacrum, right deep gluteal soft tissue tunneling and lower gluteal/upper thigh ulceration extending to the ischial tuberosity with evidence of chronic osteomyelitis. General surgery, infectious disease followed and recommended transfer to tertiary center. ---Was admitted at [facility] 03/24 to 03/31/2024. General surgery, [...] headache and generalized weakness with poor intake. HHRN has been following for wound care, cultures [...] OT evaluation Chronic pain on narcotics. Continue ROBOTICS SPECIALIST Tylenol. Continue ROBOTICS SPECIALIST gabapentin. Continue ROBOTICS SPECIALIST as needed oxycodone, minimize use as able [...] 01/14/2023] Atrial fibrillation not on anticoagulation. Hypertension ROBOTICS SPECIALIST Lasix held on admission. Restarted on 05/12/2024 Continue ROBOTICS SPECIALIST Toprol, switch to immediate release 25 mg twice daily with hold parameters. ---- ROBOTICS SPECIALIST not on aspirin or statin. Defer further cardiac workup to outpatient. Telemetry monitoring. Intake output monitoring, daily weights. Hypokalemia. Potassium replacement ordered Potassium normal at 4.1 Obstructive sleep apnea Uses BiPAP as outpt. Has chronic CO2 retention. Resume BiPAP per home settings. Rheumatoid arthritis Continue on ROBOTICS SPECIALIST on prednisone 10 mg daily. Chronic Anemia likely secondary to chronic disease. Baseline hemoglobin 9-10 range. Hemoglobin at around previous baseline. Incidental renal stones. CT - No hydronephrosis. Nonobstructive right renal pelvic stones including 13 mm right UPJ calculus. Recommend follow-up with urology as outpatient if symptomatic. Diabetes mellitus with a hemoglobin A1c of 6.6. ROBOTICS SPECIALIST not on meds. BS are 94 - [...] ready . Anna Fajardo MD Hospitalist Service [facility] Securely message with [employer] ([employer] info) Text page via [employer] Paging/Directory Interval History Has been doing Incentive spirometry in anticipation of surgery Physical Exam Vital Signs: Temp: 98.2 ??F (36.8 ??C) Temp src: Oral BP: 125/48 Pulse: 82 Resp: 16 SpO2: 95 % O2 Device: None (Room air) Weight: 147 lbs 11.33 oz Constitutional:Awake, alert, cooperative, no apparent distress sitting up in bed, eating frisian toast Respiratory: Clear to auscultation bilaterally, no [...] teaching - Pre-op labs ordered - Hold [facility] - Patient would like to change her code status to DNR/ok for intubation (only if absolutely necessary) Discussed with Dr. Alfredo. For questions/paging, please contact the CRS office at [phone]. Janak Robledo PA-C Colorectal Physician Photogrammetrist [facility] [address] [address] T: [phone] F: [phone] * Rosmery Roque RN - 05/17/2024 8:45 [...] questions/paging, please contact the CRS office at [phone]. Janak Robledo PA-C Colorectal Physician Photogrammetrist [facility] [address] [place] [address] T: [phone] F: [phone] CRS Staff Seen and examined Agree with above. Will update anesthesia on difficult extubation Orders written for bowel prep. Can have clear liquids in AM. No IV access. Will have vascular access team place picc I performed a history and physical examination of the patient and discussed their management with the physician assistant clinical nurse manager. I reviewed the physician assistants note and agree with the documented findings and plan of care. Peter Alfredo MD FACS FASCRS Colorectal Surgeon [facility] [address], [address] [place] [address] T: [phone] F: [phone] Pager: [phone] [email or web address] * Anna Fajardo MD - 05/17/2024 9:06 AM CDT [facility] Medicine Progress Note - Hospitalist Service [...] reconsider the recommendation for diverting colostomy. --Admitted [facility] on 03/06 -03/14/2024 for septic shock secondary to E. coli UTI with bacteremia, stage IV right ischial tuberosity decubitus ulcer. --Readmitted at [facility] on 03/21/[address] showed a sacral decubitus ulcer extending to the sacrum, right deep gluteal soft tissue tunneling and lower gluteal/upper thigh ulceration extending to the ischial tuberosity with evidence of chronic osteomyelitis. General surgery, infectious disease followed and recommended transfer to tertiary center. ---Was admitted at [facility] 03/24 to 03/31/2024. General surgery, [...] difficult extubation during a hospitalization for sepsis ([facility], a couple years ago, unable to [...] OT evaluation Chronic pain on narcotics. Continue ROBOTICS SPECIALIST Tylenol. Continue ROBOTICS SPECIALIST gabapentin. Continue ROBOTICS SPECIALIST as needed oxycodone, minimize use as able [...] atelectasis, effusions, or pneumothorax. Moderate atherosclerotic disease. ROBOTICS SPECIALIST Lasix held on admission. Restarted on 05/12/2024 Continue ROBOTICS SPECIALIST Toprol, switch to immediate release 25 mg twice daily with hold parameters. ---- ROBOTICS SPECIALIST not on aspirin or statin. Defer further cardiac workup to outpatient. Telemetry monitoring. Intake output monitoring, daily weights. Hypokalemia. Potassium replacement ordered Potassium normal at 4.1 Obstructive sleep apnea Uses BiPAP as outpt. Has chronic CO2 retention. Resume BiPAP per home settings. Rheumatoid arthritis Continue on ROBOTICS SPECIALIST on prednisone 10 mg daily. Chronic Anemia likely secondary to chronic disease. Baseline hemoglobin 9-10 range. Hemoglobin at around previous baseline. Incidental renal stones. CT - No hydronephrosis. Nonobstructive right renal pelvic stones including 13 mm right UPJ calculus. Recommend follow-up with urology as outpatient if symptomatic. Diabetes mellitus with a hemoglobin A1c of 6.6. ROBOTICS SPECIALIST not on meds. BS are 94 - [...] 2-4 Days Anna Fajardo MD Hospitalist Service [facility] Securely message with [employer] (more info) Text page via [employer] Paging/Directory Interval History No fevers. Good appetite. Doing bedside spirometry exercises [id number] independently Physical Exam Vital Signs: Temp: 98 ??F (36.7 ??C) Temp src: Oral BP: 124/49 Pulse: 90 Resp: 16 SpO2: 98 % O2 Device: None (Room air) Weight: 152 lbs 15.99 oz Constitutional:Awake, alert, cooperative, no apparent distress sitting up in bed, eating frisian toast Respiratory: Clear to auscultation bilaterally, no [...] Haile PA-C - 05/15/2024 3:34 PM CDT [facility] General Surgery Daily Progress Note Assessment [...] page on-call surgeon after 4pm Office number: [phone] 35 minutes spent on date of the encounter doing patient visit, chart review, and documentation. Associated attestation - Ras Hyde MD - 05/16/2024 6:28 AM CDT Physician Attestation I saw and evaluated Prerna Major as part of a shared GIZZARD SKIN REMOVER/PA visit. I personally reviewed the vital signs, [...] Notified Person Name: Anna Fajardo Notification Date/Time: 13205/15/2024 Notification Interaction: [employer] Purpose of Notification: Stool in pt wound. [...] Bladder Is there an order for indwelling cristobla catheter? YES *If there is a plan to keep cristobal catheter in place at discharge daily notification with provider is not necessary, but please add a notation in the treatment team sticky note that the patient will be discharging with the catheter. * Anna Fajardo MD - 05/15/2024 2:13 PM CDT [facility] Medicine Progress Note - Hospitalist Service [...] reconsider the recommendation for diverting colostomy. --Admitted [facility] on 03/06 -03/14/2024 for septic shock secondary to E. coli UTI with bacteremia, stage IV right ischial tuberosity decubitus ulcer. --Readmitted at [facility] on 03/21/[address] showed a sacral decubitus ulcer extending to the sacrum, right deep gluteal soft tissue tunneling and lower gluteal/upper thigh ulceration extending to the ischial tuberosity with evidence of chronic osteomyelitis. General surgery, infectious disease followed and recommended transfer to tertiary center. ---Was admitted at [facility] 03/24 to 03/31/2024. General surgery, [...] OT evaluation Chronic pain on narcotics. Continue ROBOTICS SPECIALIST Tylenol. Continue ROBOTICS SPECIALIST gabapentin. Continue ROBOTICS SPECIALIST as needed oxycodone, minimize use as able [...] atelectasis, effusions, or pneumothorax. Moderate atherosclerotic disease. ROBOTICS SPECIALIST Lasix held on admission. Restarted on 05/12/2024 Continue ROBOTICS SPECIALIST Toprol, switch to immediate release 25 mg twice daily with hold parameters. ---- ROBOTICS SPECIALIST not on aspirin or statin. Defer further cardiac workup to outpatient. Telemetry monitoring. Intake output monitoring, daily weights. Hypokalemia. Potassium replacement ordered Potassium normal at 4.1 Obstructive sleep apnea Uses BiPAP as outpt. Has chronic CO2 retention. Resume BiPAP per home settings. Rheumatoid arthritis Continue on ROBOTICS SPECIALIST on prednisone 10 mg daily. Chronic Anemia likely secondary to chronic disease. Baseline hemoglobin 9-10 range. Hemoglobin at around previous baseline. Incidental renal stones. CT - No hydronephrosis. Nonobstructive right renal pelvic stones including 13 mm right UPJ calculus. Recommend follow-up with urology as outpatient if symptomatic. Diabetes mellitus with a hemoglobin A1c of 6.6. ROBOTICS SPECIALIST not on meds. Monitor blood sugars , [...] surgical re-consult Anna Fajardo MD Hospitalist Service [facility] Securely message with [employer] (more info) Text page via [employer] Paging/Directory Interval History Was going to d/c [...] Coates RN - 05/14/2024 6:43 PM CDT [id number] Orientation: AOx4 Aggression Stop Light: green Activity: [...] Fajardo MD - 05/14/2024 3:58 PM CDT [facility] Medicine Progress Note - Hospitalist Service Date of Admission: 05/10/2024 Assessment & Plan Prerna Major is a 78 year old female with medical history of history of transverse myelitis, paraplegia, neurogenic bladder with chronic indwelling Cristobal catheter, decubitus ulcers with chronic osteomyelitis, RA on chronic prednisone therapy, HUI, HFpEF, atrial fibrillation, hypertension, gastric ulcer presented to the ED with weakness. --Admitted [facility] on 03/06 -03/14/2024 for septic shock secondary to E. coli UTI with bacteremia, stage IV right ischial tuberosity decubitus ulcer. --Readmitted at [facility] on 03/21/[address] showed a sacral decubitus ulcer extending to the sacrum, right deep gluteal soft tissue tunneling and lower gluteal/upper thigh ulceration extending to the ischial tuberosity with evidence of chronic osteomyelitis. General surgery, infectious disease followed and recommended transfer to tertiary center. ---Was admitted at [facility] 03/24 to 03/31/2024. General surgery, [...] OT evaluation Chronic pain on narcotics. Continue ROBOTICS SPECIALIST Tylenol. Continue ROBOTICS SPECIALIST gabapentin. Continue ROBOTICS SPECIALIST as needed oxycodone, minimize use as able [...] atelectasis, effusions, or pneumothorax. Moderate atherosclerotic disease. ROBOTICS SPECIALIST Lasix held on admission. Restarted on 05/12/2024 Continue ROBOTICS SPECIALIST Toprol, switch to immediate release 25 mg twice daily with hold parameters. ---- ROBOTICS SPECIALIST not on aspirin or statin. Defer further cardiac workup to outpatient. Telemetry monitoring. Intake output monitoring, daily weights. Hypokalemia. Potassium replacement ordered Potassium normal at 4.1 Obstructive sleep apnea Uses BiPAP as outpt. Has chronic CO2 retention. Resume BiPAP per home settings. Rheumatoid arthritis Continue on ROBOTICS SPECIALIST on prednisone 10 mg daily. Chronic Anemia likely secondary to chronic disease. Baseline hemoglobin 9-10 range. Hemoglobin at around previous baseline. Incidental renal stones. CT - No hydronephrosis. Nonobstructive right renal pelvic stones including 13 mm right UPJ calculus. Recommend follow-up with urology as outpatient if symptomatic. Diabetes mellitus with a hemoglobin A1c of 6.6. ROBOTICS SPECIALIST not on meds. Monitor blood sugars , [...] pain control Anna Fajardo MD Hospitalist Service [facility] Securely message with [employer] (more info) Text page via [employer] Paging/Directory Interval History Pain control improving. Complains [...] 59.6 kg (admit 05/10) Estimated Energy Needs: 4355-0764 kcals (25-30 Kcal/Kg) Justification: maintenance, wound healing Estimated Protein Needs: 78-89 grams protein (1.3-1.5 g pro/Kg) Justification: wound healing Estimated Fluid Needs: 4071-3512 mL (1 mL/Kcal) Justification: maintenance NEW FINDINGS: [...] 4:53 PM CDT Patient's daughter discussed with [facility] nurse and answered question. Patient would like to avoid any loop colostomy at this time. Agree with current wound management care. No surgical intervention needed. Will sign off. Please free free to contact again with any further questions or concerns. Yaritza Hurtado MD FACS Trauma/Emergency/Critical Care Surgery * Leela Degroot APRN LICENSE ISSUER - 05/13/2024 3:46 PM CDT Images from the original note were not included. [facility] ACUTE PAIN SERVICE [facility] Daily PAIN Progress Note Securely message with the [employer]centric Web Console (learn more here) (When I saw [...] 650 mg Oral Q6H Leela Degroot APRN LICENSE ISSUER 650 mg at 05/13/24 0952 amoxicillin-clavulanate (AUGMENTIN) 875-125 MG per tablet 1 tablet 1 tablet Oral Q12H [facility] (06/01) Adeline Varela MD diclofenac (VOLTAREN) 1 % topical gel 4 g 4 g Topical TID Leela Degroot APRN LICENSE ISSUER 4 g at 05/13/24 1005 doxycycline hyclate (VIBRAMYCIN) capsule 100 mg 100 mg Oral Q12H [facility] (06/01) Adeline Varela MD furosemide (LASIX) tablet 40 mg 40 mg Oral Daily Noemí Bhat MD 40 mg at 05/13/24 0953 gabapentin (NEURONTIN) capsule 400 mg 400 mg Oral TID Leela Degroot APRN LICENSE ISSUER 400 mg at 05/13/24 0953 heparin ANTICOAGULANT injection 5,000 Units 5,000 Units Subcutaneous Q8H Ambar Joseph MD 5,000 Units at 05/13/24 1405 lactobacillus rhamnosus (GG) (CULTURELL) capsule 1 capsule 1 capsule Oral Daily Ambar Joseph MD 1 capsule at 05/13/24 0953 Lidocaine (LIDOCARE) 4 % Patch 3 patch 3 patch Transdermal Q24h Leela Degroot APRN LICENSE ISSUER 3 patch at 05/12/24 2212 metoprolol tartrate (LOPRESSOR) tablet 25 mg 25 mg Oral BID Ambar Joseph MD 25 mg at 954 multivitamin w/minerals (THERA-VIT-M) tablet 1 tablet 1 tablet Oral Daily Noemí Bhat MD 1 tablet at 05/13/24 0951 naproxen (NAPROSYN) tablet 250 mg 250 mg Oral TID w/meals Leela Degroot APRN LICENSE ISSUER 250 mg at 05/13/24 1536 polyethylene glycol [...] ? Yes Leela Degroot APRN CNP, PGMT-BC, [facility] Coverage Friday-Friday 8:00-4:30 No weekend coverage contact warehouse shipping associate Securely message with the Qitio Console (learn more here) * Jenn Junior RN - 05/13/2024 2:59 PM CDT VAT consult placed for IV placement. Patient declined IV at this time. RN caring for patient was updated. * Adeline Varela MD - 05/13/2024 1:44 PM CDT Images from the original note were not included. [facility] Infectious Disease Progress Note Date of [...] bacteremia with septic shock requiring hospitalization at [facility]/2024 -Chronic medical conditions -HUI, HFpEF, atrial [...] 650 mg Oral Q6H Leela Degroot APRN LICENSE ISSUER 650 mg at 05/13/24 0952 cefTRIAXone (ROCEPHIN) [...] 4 g Topical TID Leela Degroot APRN LICENSE ISSUER 4 g at 05/13/24 1005 furosemide (LASIX) tablet 40 mg 40 mg Oral Daily Noemí Bhat MD 40 mg at 05/13/24 0953 gabapentin (NEURONTIN) capsule 400 mg 400 mg Oral TID Leela Degroot APRN LICENSE ISSUER 400 mg at 05/13/24 0953 heparin ANTICOAGULANT injection 5,000 Units 5,000 Units Subcutaneous Q8H Ambar Joseph MD 5,000 Units at 05/13/24 0633 lactobacillus rhamnosus (GG) (CULTURELL) capsule 1 capsule 1 capsule Oral Daily Ambar Joseph MD 1 capsule at 05/13/24 0953 Lidocaine (LIDOCARE) 4 % Patch 3 patch 3 patch Transdermal Q24h Leela Degroot APRN LICENSE ISSUER 3 patch at 05/12/24 2212 metoprolol tartrate [...] mg Oral TID w/meals Leela Degroot APRN LICENSE ISSUER 250 mg at 05/13/24 0954 polyethylene glycol [...] Islas MD - 05/13/2024 1:03 PM CDT [facility] Hospitalist Progress Note Assessment & Plan Prerna Major is a 78 year old female with medical history of history of transverse myelitis, paraplegia, neurogenic bladder with chronic indwelling Cristobal catheter, decubitus ulcers with chronic osteomyelitis, RA on chronic prednisone therapy, HUI, HFpEF, atrial fibrillation, hypertension, gastric ulcer presented to the ED with weakness. --Admitted [facility] on 03/06 -03/14/2024 for septic shock secondary to E. coli UTI with bacteremia, stage IV right ischial tuberosity decubitus ulcer. --Readmitted at [facility] on 03/21/[address] showed a sacral decubitus ulcer extending to the sacrum, right deep gluteal soft tissue tunneling and lower gluteal/upper thigh ulceration extending to the ischial tuberosity with evidence of chronic osteomyelitis. General surgery, infectious disease followed and recommended transfer to tertiary center. ---Was admitted at [facility] 03/24 to 03/31/2024. General surgery, [...] --Address medical issues as discussed above. Continue ROBOTICS SPECIALIST Tylenol. Continue ROBOTICS SPECIALIST gabapentin. Continue ROBOTICS SPECIALIST as needed oxycodone, minimize use as able [...] atelectasis, effusions, or pneumothorax. Moderate atherosclerotic disease. ROBOTICS SPECIALIST Lasix held on admission. Restarted on 05/12/2024 Continue ROBOTICS SPECIALIST Toprol, switch to immediate release 25 mg twice daily with hold parameters. ---- ROBOTICS SPECIALIST not on aspirin or statin. Defer further cardiac workup to outpatient. Telemetry monitoring. Intake output monitoring, daily weights. Hypokalemia. Potassium replacement ordered , continue IV fluids normal saline with KCl. Potassium normal at 4.1 Obstructive sleep apnea Uses BiPAP as outpt. Has chronic CO2 retention. Resume BiPAP per home settings. Rheumatoid arthritis Continue on ROBOTICS SPECIALIST on prednisone 10 mg daily. Chronic Anemia [...] if elevated will consider sliding scale insulin. ROBOTICS SPECIALIST not on meds. Age-appropriate health maintenance as [...] 650 mg Oral Q6H Leela Degroot, AMIRAH LICENSE ISSUER 650 mg at 05/13/24 0952 cefTRIAXone (ROCEPHIN) [...] 4 g Topical TID Leela Degroot APRN LICENSE ISSUER 4 g at 05/13/24 1005 furosemide (LASIX) tablet 40 mg 40 mg Oral Daily Noemí Bhat MD 40 mg at 05/13/24 0953 gabapentin (NEURONTIN) capsule 400 mg 400 mg Oral TID Leela Degroot APRN LICENSE ISSUER 400 mg at 05/13/24 0953 heparin ANTICOAGULANT injection 5,000 Units 5,000 Units Subcutaneous Q8H Ambar Joseph MD 5,000 Units at 05/13/24 0633 lactobacillus rhamnosus (GG) (CULTURELL) capsule 1 capsule 1 capsule Oral Daily Ambar Joseph MD 1 capsule at 05/13/24 0953 Lidocaine (LIDOCARE) 4 % Patch 3 patch 3 patch Transdermal Q24h Leela Degroot APRN LICENSE ISSUER 3 patch at 05/12/24 2212 metoprolol tartrate [...] mg Oral TID w/meals Leela Degroot APRN LICENSE ISSUER 250 mg at 05/13/24 0954 polyethylene glycol [...] with the patient's daughter. Yaritza Hurtado MD [facility] General Surgery * Noemí Bhat MD - 05/12/2024 12:34 PM CDT [facility] Medicine Progress Note - Hospitalist Service Date of Admission: 05/10/2024 Assessment & Plan Prerna Major is a 78 year old female with medical history of history of transverse myelitis, paraplegia, neurogenic bladder with chronic indwelling Cristobal catheter, decubitus ulcers with chronic osteomyelitis, RA on chronic prednisone therapy, HUI, HFpEF, atrial fibrillation, hypertension, gastric ulcer presented to the ED with weakness. --Admitted [facility] on 03/06 -03/14/2024 for septic shock secondary to E. coli UTI with bacteremia, stage IV right ischial tuberosity decubitus ulcer. --Readmitted at [facility] on 03/21/[address] showed a sacral decubitus ulcer extending to the sacrum, right deep gluteal soft tissue tunneling and lower gluteal/upper thigh ulceration extending to the ischial tuberosity with evidence of chronic osteomyelitis. General surgery, infectious disease followed and recommended transfer to tertiary center. ---Was admitted at [facility] 03/24 to 03/31/2024. General surgery, [...] --Address medical issues as discussed above. Continue ROBOTICS SPECIALIST Tylenol. Continue ROBOTICS SPECIALIST gabapentin. Continue ROBOTICS SPECIALIST as needed oxycodone, minimize use as able [...] atelectasis, effusions, or pneumothorax. Moderate atherosclerotic disease. ROBOTICS SPECIALIST Lasix held on admission. Restarted on 05/12/2024 Continue ROBOTICS SPECIALIST Toprol, switch to immediate release 25 mg twice daily with hold parameters. ---- ROBOTICS SPECIALIST not on aspirin or statin. Defer further cardiac workup to outpatient. Intake output monitoring, daily weights. Hypokalemia. Potassium replacement ordered , continue IV fluids normal saline with KCl. Potassium normal at 4.1 Obstructive sleep apnea Uses BiPAP as outpt. Has chronic CO2 retention. Resume BiPAP per home settings. Rheumatoid arthritis Continue on ROBOTICS SPECIALIST on prednisone 10 mg daily. Chronic Anemia [...] if elevated will consider sliding scale insulin. ROBOTICS SPECIALIST not on meds. Age-appropriate health maintenance as [...] and stable Noemí Bhat MD Hospitalist Service [facility] Securely message with Nascentric (more info) Text page via [facility] Paging/Directory Interval History Chart reviewed, discussed [...] Getting wound cares per bedside RN and food and beverage manager. Bilateral lower extremities are atrophic with history of paraplegia Psychiatry; calm and cooperative, pleasant Medical Decision Making Data * Noemí Bhat MD - 05/11/2024 1:22 PM CDT [facility] Medicine Progress Note - Hospitalist Service Date of Admission: 05/10/2024 Assessment & Plan Prerna Major is a 78 year old female with medical history of history of transverse myelitis, paraplegia, neurogenic bladder with chronic indwelling Cristobal catheter, decubitus ulcers with chronic osteomyelitis, RA on chronic prednisone therapy, HUI, HFpEF, atrial fibrillation, hypertension, gastric ulcer presented to the ED with weakness. --Admitted [facility] on 03/06 -03/14/2024 for septic shock secondary to E. coli UTI with bacteremia, stage IV right ischial tuberosity decubitus ulcer. --Readmitted at [facility] on 03/21/[address] showed a sacral decubitus ulcer extending to the sacrum, right deep gluteal soft tissue tunneling and lower gluteal/upper thigh ulceration extending to the ischial tuberosity with evidence of chronic osteomyelitis. General surgery, infectious disease followed and recommended transfer to tertiary center. ---Was admitted at [facility] 03/24 to 03/31/2024. General surgery, [...] --Address medical issues as discussed above. Continue ROBOTICS SPECIALIST Tylenol. Continue ROBOTICS SPECIALIST gabapentin. Continue ROBOTICS SPECIALIST as needed oxycodone, minimize use as able [...] effusions, or pneumothorax. Moderate atherosclerotic disease. Hold ROBOTICS SPECIALIST Lasix in the setting of sepsis, fluid resuscitation. Continue ROBOTICS SPECIALIST Toprol, switch to immediate release 25 mg twice daily with hold parameters. ---- ROBOTICS SPECIALIST not on aspirin or statin. Defer further cardiac workup to outpatient. Telemetry monitoring. Intake output monitoring, daily weights. Hypokalemia. Potassium replacement ordered , continue IV fluids normal saline with KCl. Potassium normal at 4.1 Obstructive sleep apnea Uses BiPAP as outpt. Has chronic CO2 retention. Resume BiPAP per home settings. Rheumatoid arthritis Continue on ROBOTICS SPECIALIST on prednisone 10 mg daily. Chronic Anemia [...] if elevated will consider sliding scale insulin. ROBOTICS SPECIALIST not on meds. Age-appropriate health maintenance as [...] and stable Noemí Bhat MD Hospitalist Service [facility] Securely message with Nascentric (more info) Text page via [facility] Paging/Directory Interval History Chart reviewed, discussed with bedside RN and food and beverage manager Patient resting comfortably in bed complains of [...] Skin: Decubitus ulcers not examined by me. sales closer dressed the wounds just recently Psychiatry; calm and cooperative, pleasant Medical Decision Making Data documented in this encounter H&P Notes * Ambar Joseph MD - 05/10/2024 5:58 PM CDT [facility] History and Physical Hospitalist Prerna Major [...] presented to the ED with weakness. --Admitted [facility] on 03/06 -03/14/2024 for septic shock secondary to E. coli UTI with bacteremia, stage IV right ischial tuberosity decubitus ulcer. --Readmitted at [facility] on 03/21/[address] showed a sacral decubitus ulcer extending to the sacrum, right deep gluteal soft tissue tunneling and lower gluteal/upper thigh ulceration extending to the ischial tuberosity with evidence of chronic osteomyelitis. General surgery, infectious disease followed and recommended transfer to tertiary center. ---Was admitted at [facility] 03/24 to 03/31/2024. General surgery, [...] --Address medical issues as discussed above. Continue ROBOTICS SPECIALIST Tylenol. Continue ROBOTICS SPECIALIST gabapentin. Continue ROBOTICS SPECIALIST as needed oxycodone, minimize use as able [...] effusions, or pneumothorax. Moderate atherosclerotic disease. Hold ROBOTICS SPECIALIST Lasix in the setting of sepsis, fluid resuscitation. Continue ROBOTICS SPECIALIST Toprol, switch to immediate release 25 mg twice daily with hold parameters. ---- ROBOTICS SPECIALIST not on aspirin or statin. Defer further cardiac workup to outpatient. Telemetry monitoring. Intake output monitoring, daily weights. Hypokalemia. Potassium replacement, continue IV fluids normal saline with KCl. Recheck potassium in AM. Obstructive sleep apnea Uses BiPAP as outpt. Has chronic CO2 retention. Resume BiPAP per home settings. Rheumatoid arthritis Continue on ROBOTICS SPECIALIST on prednisone 10 mg daily. Chronic Anemia [...] if elevated will consider sliding scale insulin. ROBOTICS SPECIALIST not on meds. Age-appropriate health maintenance as [...] presented to the ED with weakness. --Admitted [facility] on 03/06 -03/14/2024 for septic shock secondary to E. coli UTI with bacteremia, stage IV right ischial tuberosity decubitus ulcer. --Readmitted at [facility] on 03/21/[address] showed a sacral decubitus ulcer extending to the sacrum, right deep gluteal soft tissue tunneling and lower gluteal/upper thigh ulceration extending to the ischial tuberosity with evidence of chronic osteomyelitis. General surgery, infectious disease followed and recommended transfer to tertiary center. ---Was admitted at [facility] 03/24 to 03/31/2024. General surgery, [...] back unable to be examined, in ED [facility]. PSYCHIATRY Cooperative Data: All new lab and imaging data was reviewed. documented in this encounter Procedure Notes * Dede Downing RN - 05/18/2024 9:19 AM CDTAssociated Order(s): Single Lumen Midline Placement [facility] Single Lumen Midline Placement Date/Time: 05/18/2024 [...] the procedure a time out was called [place] Protocol: the Joint Commission [place] Protocol was followed Preparation: Patient was prepped [...] size: 4 Fr Brand: Bard Lot number: [id number] Placement method: MST and ultrasound Number of [...] patch: $95/mo. Pregabalin 50mg: $47/mo. Raven Deleon Bird Tender/Liaison, Discharge Pharmacy [phone] (voice or text) [email or web address] Available on Nascentric and Teams * Leela Degroot, AMIRAH LICENSE ISSUER - 05/21/2024 11:39 AM CDTAssociated Order(s): PAIN MANAGEMENT ADULT IP CONSULT Images from the original note were not included. [facility] ACUTE PAIN SERVICE CONSULTATION [facility] Qitio Console Leela Televisit Time start video: 10:51 [...] procedure. Patient is familiar to this typewriter aligner please see note from 05/12/24 for details [...] Senna-docusate -Opioid prescriber Flo Lanier MD -[place] TECHNOLOGY PROFESSIONAL pulled from system on no controlled substance note . Discussed by patrice Mars PharmD covering floor and verified script of Oxycodone at last discharge and othe script of Oxycodone consistently from [facility] This indicates discrepancy Discharge Recommendations - [...] APRN,CONY, ACHPN, PGMT- Acute Pain Team ( [place]/, , [facility]) 8-4:30 after 3:30 page warehouse shipping associate No weekend coverage Securely message with the Qitio Console (learn more here) * Johanny Harrison RN - 05/17/2024 12:07 PM CDTAssociated Order(s): WOUND OSTOMY CONTINENCE NURSE IP CONSULT Images from the original note were not included. [facility] PRE-OP OSTOMY CONSULTATION AND ASSESSMENT INTAKE Type of Stoma Planned: Permanent v. Temporary Colostomy Diagnosis Pertinent to Stoma: chronic osteomyelitis and constipation Type of Surgery: lap colostomy Surgery Date: 05/18 Surgeon: [facility]: [facility] Current Living Situation: House Anticipated Discharge Location Post Hospital Stay: House EDUCATION ASSESSMENT Present for Teaching Session: Patient and Family Member Madalyn Hernandez (also mary) Longwall Foreman Present: NA Significant Vision Issues: No Hand [...] patient EDUCATION Teaching Folder Given: Yes Instruction: [facility] Role, Activity, Anatomy, Bathing: Ostomy supplies are water proof, Clothing, Diet,Fluids: Drink 6-8 glasses of non-caffeinated fluids daily, Hospital Stay: basics, Pouching Products: Showed pouching system, Supply Ordering, and Support Group Total Time Spent with Patient: 90 minutes Johanny FOURNIER 1st choice: Securely message with Nascentric ([facility] [email or web address]) (2nd option: [facility] Office , messages checked periodically Mon- Fri 8a-4p) * Franca Jim MD - 05/16/2024 10:44 AM CDTAssociated Order(s): COLORECTAL SURGERY IP CONSULT; COLORECTAL SURGERY IP CONSULT Images from the original note were not included. [facility] Colon and Rectal Surgery Consult Note [...] 650 mg Oral Q6H Leela Degroot APRN LICENSE ISSUER 650 mg at 05/16/24 0916 amoxicillin-clavulanate (AUGMENTIN) 875-125 MG per tablet 1 tablet 1 tablet Oral Q12H [facility] (06/01) Adeline Varela MD 1 tablet at 05/16/24 0914 diclofenac (VOLTAREN) 1 % topical gel 4 g 4 g Topical TID Leela Degroot APRN LICENSE ISSUER 4 g at 05/16/24 0922 doxycycline hyclate (VIBRAMYCIN) capsule 100 mg 100 mg Oral Q12H [facility] (06/01) Adeline Varela MD 100 mg at 05/16/24 0914 furosemide (LASIX) tablet 40 mg 40 mg Oral Daily Noemí Bhat MD 40 mg at 05/16/24 0914 gabapentin (NEURONTIN) capsule 400 mg 400 mg Oral TID Leela Degroot APRN LICENSE ISSUER 400 mg at 05/16/24 0916 heparin ANTICOAGULANT injection 5,000 Units 5,000 Units Subcutaneous Q8H Ambar Joseph MD 5,000 Units at 05/16/24 0517 lactobacillus rhamnosus (GG) (CULTURELL) capsule 1 capsule 1 capsule Oral Daily Ambar Joseph MD 1 capsule at 05/16/24 0914 Lidocaine (LIDOCARE) 4 % Patch 3 patch 3 patch Transdermal Q24h Leela Degroot APRN LICENSE ISSUER 3 patch at 05/15/242015 metoprolol tartrate (LOPRESSOR) tablet 25 mg 25 mg Oral BID Ambar Joseph MD 25 mg at multivitamin w/minerals (THERA-VIT-M) tablet 1 tablet 1 tablet Oral Daily Noemí Bhat MD 1 tablet at 05/16/24 0914 naproxen (NAPROSYN) tablet 250 mg 250 mg Oral TID w/meals Leela Degroot APRN LICENSE ISSUER 250 mg at 05/16/24 0914 polyethylene glycol [...] C. difficile Antigen and Toxins A/B EIA [[id number]] Stool from Per Rectum Final result Component Value C Difficile Toxin B by PCR Negative A negative result does not exclude actual disease due to C. difficile and may be due to improper collection, handling and storage of the specimen or the number of organisms in the specimen is below the detection limit of the assay. 05/12/2024 1220 05/13/2024 1046 Urine Culture [[id number]] Urine, Cristobal Catheter Final result Component Value Culture No Growth 05/10/2024 1448 05/15/2024 1531 Blood Culture Peripheral Blood [[id number]] Peripheral Blood Final result Component Value Culture No Growth 05/10/2024 1446 05/10/2024 1608 Symptomatic Influenza A/B, RSV, & SARS-CoV2 PCR (COVID-19) Nasopharyngeal [[id number]] Swab from Nasopharyngeal Final result Component Value [...] would like to receive her care at [place]. If she prefers to stay and have his completed this admission, could add on for Friday. Would bowelprep and taiwo tomorrow. For questions/paging, please contact the CRS office at [phone]. Mechelle Jim MD Colon and Rectal Surgery [facility] [address] [address] T: [phone] F: [phone] * Linda Ware RN - 05/15/2024 10:03 AM CDT Care Management Discharge Note Discharge Date: 05/15/2024 Discharge Disposition: Home, Home Care resumption [facility] RN/BOX SEALING INSPECTOR [facility] (wound care and SANDY) [...] both [facility] Additional Information: Odd Shoe Examiner met with the patient at the bedside. Patient is A+Ox4. Patient cleared for discharge to homewith family with resumption of homecare through [facility] for RN/BOX SEALING INSPECTOR, STRUCTURAL STEEL SHOP SUPERVISOR services of Daughter, and [facility] for [...] Ware RN, BSN, ACM Care Transitions Specialist [facility] Care Transitions Specialist [phone] [place]. [id number] [email or web address] Office: [phone] [facility] * Jessica Rudolph RN - 05/13/2024 11:21 AM CDTAssociated Order(s): WOUND OSTOMY CONTINENCE NURSE IP CONSULT [facility] WO Nurse Inpatient Assessment Consulted for: [...] Rudolph CWMANJINDERN Dept. Vocera- [facility] via Vocera Dept. Office Number: [phone] * Yaima Roman RN - 05/12/2024 3:21 [...] Communication Assessment Patient's communication style: spoken language (Kittitian or Bilingual) Hearing Difficulty or Deaf: yes Wear Glasses or Blind: yes Cognitive Cognitive/Neuro/Behavioral: WDL Living Environment: People in home: child(suha), adult, spouse Jeremiah Elvi Current living Arrangements: house Able to return to prior arrangements: yes Family/Social Support: Care provided by: child(suha), homecare agency Provides care for: no one, unable/limited ability to care for self Marital Status: Children, Other (specify) (niece) Description of Support System: Supportive, Involved Current Resources: Patient receiving home care services: Yes Skilled Home Care Services: Group Home, Home Health Aid Community Resources: Other (see [...] Insecurity: No Food Insecurity (10/19/2023) Received from [facility] Hunger Vital Sign Worried About Running Out of Food in the Last Year: Never true Ran Out of Food in the Last Year: Never true Depression: Not on file Housing Stability: Low Risk (10/19/2023) Received from [facility] Housing Stability What is your living situation today?: I have a steady place to live Tobacco Use: Low Risk (11/07/2023) Received from [facility] Patient History Smoking Tobacco Use: Never Smokeless Tobacco Use: Never Passive Exposure: Not on file Financial Resource Strain: Low Risk (04/02/2024) Received from [facility] Financial Resource Strain Difficulty of Paying Living Expenses: 2 Difficulty of Paying Living Expenses: Not on file Alcohol Use: Not on file Transportation Needs: No Transportation Needs (04/02/2024) Received from [facility] Transportation Needs Lack of Transportation (Medical): 1 Physical Activity: Not on file Interpersonal Safety: Not At Risk (10/19/2023) Received from [facility] Humiliation, Afraid, Rape, and Kick questionnaire Fear of Current or Ex-Partner: No Emotionally Abused: No Physically Abused: No Sexually Abused: No Stress: Not on file Social Connections: Unknown (02/03/2022) Received from [employer] Social Connections Frequency of Communication with Friends and Family: Not on file Health Literacy: Not on file Functional Status: Prior to admission patient needed assistance: Dependent ADLs:: Bathing, Dressing, Grooming, Incontinence, Positioning, Transfers, Wheelchair-withassist, Toileting Dependent IADLs:: Cleaning, Cooking, Laundry, Shopping, Meal Preparation, Medication Management, Money Management, Transportation, Incontinence Mental Health Status: Chemical Dependency Status: Values/Beliefs: Spiritual, Cultural Beliefs, Caodaism Practices, Values that affect care: yes (Worship) Additional Information: Per consult for discharge planning, met with patient to discuss discharge planning. Per patient, she and her spouse, who has dementia, live with their daughter in her daughter's home. Per patient, she is mostly bed bound but is able to get into a wheelchair with assist of 1 and dustin lift. Patient shared that her daughter is also her paid STRUCTURAL STEEL SHOP SUPERVISOR. Patient stated that she is open to [place]afkel[place] death claim examiner 2x week wound care & cristobal catheter exchange once a month and BOX SEALING INSPECTOR services. Patient is also open to [facility] [...] pt is open to Skilled RN & BOX SEALING INSPECTOR and requested discharge orders faxed to [phone]. Called [facility] and spoke to Maryjoabdirashid. Lady confirmed pt is seen by an SANDY once a week for wound care and requsted face sheet and discharge orders with wound care orders faxed to [phone]. Inpatient Sales Product Specialist will continue follow for discharge planning. MEME Vivar RN, BSN, OCN Inpatient Care Coordination [address] Office: [phone] * Leela Degroot APRN LICENSE ISSUER - 05/12/2024 12:33 PM CDTAssociated Order(s): PAIN MANAGEMENT ADULT IP CONSULT Images from the original note were not included. [facility] ACUTE PAIN SERVICE CONSULTATION [facility] Nascentric Web Console Leela Date of Admission: 05/10/2024 [...] 7.5 mg (3), IV 0 mg. Prerna Carson Martinezt Has used in the past 24 [...] at discharge: History of Present Illness (HPI): rPerna Major is a 78 year old female [...] of Prerna Major. Leela Degroot RN, PGMT-BC GIZZARD SKIN REMOVER,LICENSE ISSUER, ACHPN Acute Pain Team ( [facility], [facility], [facility]) 8-4:30 after 3:30 page warehouse shipping associate No weekend coverage Securely message with the Nascentric Web Console (learn more here) * Yaritza Hurtado MD - 05/11/2024 12:00 PM CDTAssociated Order(s): SURGERY GENERAL IP CONSULT [facility] Consult Note - General Surgery Service [...] (131 lb 6.3 oz). Yaritza Hurtado MD [facility] Non-urgent messages: Securely message with Kofi (more info) Text page via [facility] Paging/Directory Chief Complaint Pain from sacral [...] Narrative EXAM: CT CHEST/ABDOMEN/PELVIS W CONTRAST LOCATION: [facility] DATE: 05/10/2024 INDICATION: Fever, paraplegia, abdominal [...] from the original note were not included. [facility] Nurse Inpatient Assessment Consulted for: Wound acute on chronic osteomyelitis Summary: patient with POA wounds to buttock x3 stage 4, initial [facility] visit 05/11 Patient History (according to provider [...] STATUS: initial assessment Supplies ordered: ordered through [facility] from pharmacy, supplies stored on unit, and [...] areas Positioning Equipment: as needed Fluidized positioner (#[id number] or #[id number]) to help maintain side lying position. Chair positioning: Chair cushion (#[id number]) , Assist patient to reposition hourly, and [...] to notify the Provider(s) and re-consult the [facility] Nurse if new skin concern. DATA: Current [...] and Shear: 1-->problem Brandon Score: 13 Johanny JUSTICEOCN 1st choice: Securely message with Nascentric ([facility] [employer]) (2nd option: [facility] Office , messages checked periodically Mon- Fri [...] Diet history - she was eating regularly ROBOTICS SPECIALIST - Supplements - She does a Premier [...] Weight 59.6 kg (actual) Estimated Energy Needs: 1263-0724 kcals (25-30 Kcal/Kg) Justification: maintenance, wound healing Estimated Protein Needs: 78-89 grams protein (1.3-1.5 g pro/Kg) Justification: wound healing Estimated Fluid Needs: 6011-7924 mL (1 mL/Kcal) Justification: maintenance MALNUTRITION: % [...] from the original note were not included. [facility] Infectious Disease Consultation Date of Admission: [...] bacteremia with septic shock requiring hospitalization at [facility]/20[facility] -Chronic medical conditions -HUI, HFpEF, atrial [...] Most recently was admitted to [facility] with candidal albicans bacteremia and was admitted to [facility] for E.coli septic shock in February. [...] it with pertinent information if needed. Prerna Carson Major Family History I have reviewed this [...] All laboratory data reviewed Component Latest Ref [facility] 05/10/2024 2:46 PM Influenza A Negative Negative Influenza B Negative Negative Resp Syncytial Virus Negative Negative SARS CoV2 PCR Negative Negative Component Latest Ref [facility] 05/10/2024 2:44 PM CRP Inflammation <5.00 mg/L 61.98 (H) CK Total 26 - 192 U/L 15 (L) Component Latest Ref [facility] 05/10/2024 2:44 PM WBC 4.0 - 11.0 [...] - 450 10e3/uL [address] [facility] 05/10/2024 2:44 PM Sodium 135 - 145 [...] 1448 05/11/2024 0331 Blood Culture Peripheral Blood [[id number]] Peripheral Blood Preliminary result Component Value Culture No growth after 12 hours P 05/10/2024 1446 05/10/2024 1608 Symptomatic Influenza A/B, RSV, & SARS-CoV2 PCR (COVID-19) Nasopharyngeal [[id number]] Swab from Nasopharyngeal Final result Component Value Influenza A PCR Negative Influenza B PCR Negative RSV PCR Negative SARS CoV2 PCR Negative Imaging EXAM: CT CHEST/ABDOMEN/PELVIS W CONTRAST LOCATION: [facility] DATE: 05/10/2024 INDICATION: Fever, paraplegia, abdominal [...] Junior RN - 05/10/2024 6:06 PM CDT [facility] ED Nurse Handoff Report ED Chief [...] - Current: bed bound Patient's Preferred language: Kittitian Longwall Foreman Needed?: No Isolation: None Infection: Not Applicable [...] performed were none. ED NURSE PHONE NUMBER: *[id number] * Simona Bashir RN - 05/10/2024 2:25 [...] Pressure Ventricular Rate 103 Atrial Rate 103 [place] Interval 144 QRS Duration 72 QT 340 QTc 445 P [place] 65 R AXIS 25 T [place] 50 Interpretation ECG Sinus tachycardia Possible left [...] Urine Negative Ketones Urine 20 (*) Specific [place] Urine 1.026 Blood Urine Trace (*) pH [...] a tertiary care facility such as the [facility] although no beds readily available at that [...] and the provider's statements to me. 05/10/2024 [facility] EMERGENCY DEPT Nemesio Davila MD 05/11/241928 * [...] ??C) -- -- -- -- -- -- 05/10/24 2052 101/46 98.3 ??F (36.8 ??C) Oral 91 18 99 % 1.524 m (5') 59.6 kg (131 lb 6.3 oz) 05/10/241999 96/43 -- -- 105 17 100 % -- -- 05/10/24 1930 (!) 93/ -- -- 100 20 100 % -- [...] Urine Negative Ketones Urine 20 (*) Specific [place] Urine 1.026 Blood Urine Trace (*) pH [...] Pressure Ventricular Rate 103 Atrial Rate 103 [place] Interval 144 QRS Duration 72 QT 340 QTc 445 P [place] 65 R AXIS 25 T [place] 50 Interpretation ECG Sinus tachycardia, normal axis, [...] mg Oral or NG Tube $Given 05/10/24 0412) lidocaine 1 % 0.1-1 mL (has no [...] for transfer for services not available at [facility]. 1719 I spoke with [facility] regarding CT results, findings are consistent with chronic osteomyelitis with possible acute osteomyelitis at the coccyx. 1745 I spoke with the clinical pharmacist regarding antibiotic choices given patient's allergies. He recommends linezolid and Flagyl as well as the previously ordered ceftriaxone. Optional/Additional Documentation None Medical Decision Making / Diagnosis [facility] Diagnoses: None MIPS Cristobal catheter was inserted [...] goals on Care Plan in [facility] electronic health record for goal details. [...] HH OT/PT, however, confirmed planper RN and adult live in caregiver/SW is to discharge to TCU this date. [...] if needingmore supportive environment consider placement in terminal computer operator care facility. * Plan of Care - Alaina Malave RN - 05/24/2024 6:38 PM CDT Shift Note [id number]: Patient is alert and oriented x4. Mobility: [...] Alfredo MD - 05/18/2024 6:52 PM CDT [facility] Brief Operative Note Pre-operative diagnosis: Decubitus [...] MD [facility] [phone]. ADDENDUM: PATIENT DATA Indicate Y or N: [...] PM CDT Goal Outcome Evaluation: Date/Time: 05/18/2024 ([id number]) Mental Status: A&O x4 Activity/dangle: Mechanical lift [...] sigmoid end colostoy SURGEON: Peter Alfredo MD CHILDREN TEACHER: Sanchez Sparks MD, [facility] Colorectal Surgery Fellow ANESTHESIA: General. ESTIMATED [...] Kirk RN - 05/18/2024 7:06 AM CDT 9624-5142 Orientation: A&Ox4 Aggression Stop Light: green Activity: [...] Abnormal VS/Results: VSS on RA. Bowel/Bladder: chronic Cirstobal in place, multiple incontinent Bms d/t bowel [...] Notification Date/Time: 05/18/2024 at 0600 Notification Interaction: [employer] web messaging Purpose of Notification SBAR Situation: [...] PM CDT Goal Outcome Evaluation: Date/Time: 05/17/2024 (5590-4051) Mental Status: A&O x4 Activity/dangle: Up with [...] HFpEF, atrial fibrillation, hypertension, gastric ulcer 05/15/2024 5954-6781 Contact precautions maintained for MRSA Orientation A [...] HFpEF, atrial fibrillation, hypertension, gastric ulcer 05/15/2024 4865-7401 Orientation A &O x 4 Vitals/Tele VSS [...] Maciel RN - 05/14/2024 7:09 AM CDT 2773-7927 Orientation: a&ox4 Aggression Stop Light: green Activity: [...] Comments: * Plan of Care - Wyatt Ttutle RN - 05/13/2024 3:40 AM CDT Goal Outcome Evaluation: 05/12/24 9516-9367 Orientation: A/Ox4, pleasant Aggression Stop Light: green [...] 05/12/2024 6:06 PM CDT Goal Outcome Evaluation: 8152-9152 Orientation: AOx4 Aggression Stop Light: green Activity: [...] Waldrop RN - 05/12/2024 6:45 AM CDT 9823-1987 Orientation: A/Ox4 Aggression Stop Light: green Activity: [...] Skin/Wounds: wounds on buttocks/coccyx CDI Consults: WOMars, MUKESH, gen surg D/C Disposition: pending Other Info: [...] R buttock/coccyx-- seen by WO today. Consults: JEANNIE D/C Disposition: MUKESH DENNIS, Gen Surg, DAISY/CM * Plan of Care - Selene Garcia [...] NS and mepi placed on top Consults: JENANIE, MUKESH, Gen Surg, SW/CM D/C Disposition: tbd Other Info: -pt arrived around 2230 last night Associated attestation - Eric Waldrop RN - 05/11/2024 6:56 AM CDT IEric RN, can attest to the Efficiency Manager's note and assessment. Care was provided underdirect [...] x 7 days supply Changes made to ROBOTICS SPECIALIST medication list: Added: Augmentin, Flagyl Deleted: potassium Changed: furosmide, metoprolol Allergies reviewed with patient and updates made in EHR: yes Medication History Completed By: Kaela Martinez RPH 05/10/2024 7:06 PM ROBOTICS SPECIALIST Med List Medication Sig Last Dose acetaminophen [...] USE ONLY) (05/24/2024 7:31 AM CDT) Pathologist [facility] Hold Specimen 0 05/24/2024 8:21 AM CDT LABORATORY Blood STRUCTURE OF RIGHT UPPER LIMB / Unknown Venipuncture / Unknown 05/24/2024 7:31 AM CDT 05/24/2024 8:09 AM CDT Ambar Joseph MD LAB - BLOOD ORDERABL ES LABORATORY [facility] Lab [address] floor, [address] [place] [address], [facility] [phone] * Platelet count (05/24/2024 7:31 AM CDT) Pathologist [facility] Platelet Count 286 150 - 450 10e3/uL 05/24/2024 8:13 AM CDT LABORATORY Blood STRUCTURE OF RIGHT UPPER LIMB / Unknown Venipuncture / Unknown 05/24/2024 7:31 AM CDT 05/24/2024 8:10 AM CDT Peter Alfredo MD LAB - BLOOD ORDERABL ES LABORATORY [facility] Lab [address] floor, [address] [place] [address], [facility] [phone] * (ABNORMAL) CBC with platelets (05/21/2024 7:05 [...] AM CDT 05/21/2024 7:23 AM CDT Janak D Venkat PA-C LAB - BLOOD ORDERA BLES LABORATORY [facility] Lab [address] floor, [address] [place] [address], [facility] [phone] * (ABNORMAL) Basic metabolic panel (05/21/2024 7:05 AM CDT) Sodium 143 135 - 145 mmol/L 05/21/2024 7:44 AM CDT LABORATORY Potassium 3.4 3.4 - 5.3 mmol/L 05/21/2024 7:44 AM T LABORATORY Chloride 104 98 - 107 mmol/L [...] 7:44 AM T LABORATORY Comment:eGFR calculated usin g 2020 CKD-EPI equation. Calcium 8.6(L) 8.8 - 10.4 mg/dL 05/21/2024 7:44 AM [facility] Comment:Reference intervals for this test were updated on 04/27/2024 to reflect our healthy population more accurately. There may be differences in the flagging of prior results with similar values performed with this method. Those prior results can be interpreted in the context of the updated reference intervals. Glucose 96 70 - 99 mg/dL 05/21/2024 7:44 AM [facility] Blood STRUCTURE OF LEFT HAND / Unknown Venipuncture / Unknown 05/21/2024 7:05 AM CDT 05/21/2024 7:23 AM CDT Janak Robledo PA-C LAB - BLOOD ORDERA BLES Performing Organization Address City/[facility]/ZIP Co de Phone Number LABORATORY [facility] Lab [address], [address] [place] [address], [facility] [phone] * (ABNORMAL) Glucose by meter (05/19/2024 10:21 PM CDT) GLUCOSE BY METER POCT 157(H) 70 - 99 mg/dL 05/19/2024 10:28 PM CDT LABORATORY POC Blood, Capillary BLOOD SPECIMEN / Unknown 05/19/2024 10:21 PM CDT 05/19/2024 10:28 PM CDT Ambar Joseph MD LAB - BEAKER POCT Performing Organization Address City/[facility]/ZIP Co de Phone Number LABORATORY POC [facility] Lab [address], [address] [place] [address], [facility] * (ABNORMAL) Phosphorus (05/19/2024 6:06 AM CDT) Phosphorus 4.8(H) 2.5 - 4.5 mg/dL 05/19/2024 7:15 AM CDT LABORATORY Blood STRUCTURE OF RIGHT UPPER LIMB / Unknown Venipuncture / Unknown 05/19/2024 6:06 AM CDT 05/19/2024 6:34 AM CDT Peter Alfredo MD LAB - BLOOD ORDERABL ES Performing Organization Address City/[facility]/ZIP Co de Phone Number LABORATORY [facility] Lab [address], [address] [place] [address], [facility] [phone] * Magnesium (05/19/2024 6:06 AM CDT) Magnesium 1.9 1.7 - 2.3 mg/dL 05/19/2024 7:15 AM CDT LABORATORY Blood STRUCTURE OF RIGHT UPPER LIMB / Unknown Venipuncture / Unknown 05/19/2024 6:06 AM CDT 05/19/2024 6:34 AM CDT Peter Alfredo MD LAB - BLOOD ORDERABL ES LABORATORY [facility] Lab [address], [address] [place] [address], [facility] [phone] * (ABNORMAL) CBC with platelets (05/19/2024 6:06 AM CDT) [facility] WBC Count 12.5(H) 4.0 - 11.0 10e3/uL [...] MD LAB - BLOOD ORDERABL ES LABORATORY [facility] Lab [address], [address] [place] [address], [facility] [phone] * (ABNORMAL) Basic metabolic panel (05/19/2024 6:06 [...] 05/19/2024 7:15 AM CDT LABORATORY Comment:eGFR calculated us2020 CKD-EPI equation. [...] 70 - 99 mg/dL 05/19/2024 7:15 AM T LABORATORY Blood STRUCTURE OF RIGHT UPPER LIMB / Unknown Venipuncture / Unknown 05/19/2024 6:06 AM CDT 05/19/2024 6:34 AM CDT Peter Alfredo MD LAB - BLOOD ORDERABL ES LABORATORY [facility] Lab [address], [address] [place] [address], [facility] [phone] * Adult Type and Screen (05/18/2024 11:18 AM CDT) [facility] ABO/RH(D) A POS 05/18/2024 7:11 AM CDT BLOOD BANK Antibody Screen Negative Negative 05/18/2024 7:11 AM CDT BLOOD BANK SPECIMEN EXPIRATION DATE [id number] 05/18/2024 7:11 AM CDT BLOOD BANK Blood BLOOD SPECIMEN / Unknown Venipuncture / Unknown 05/18/2024 11:18 AM CDT 05/18/2024 11:35 AM CDT Janak Robledo PA-C LAB - BLOOD BANK T EST ORDER Performing Organization Address City/State/[facility] Co de Phone Number BLOOD BANK [address] [place] [address], [facility] * (ABNORMAL) Basic metabolic panel (05/18/2024 11:18 AM CDT) [facility] Sodium 144 135 - 145 mmol/L 05/18/2024 [...] 05/18/2024 12:01 PM CDT LABORATORY Comment:eGFR calculated us2020 CKD-EPI [...] PA-C LAB - BLOOD ORDERA BLES LABORATORY [facility] Lab [address], [place] [address] [address], [facility] [phone] * (ABNORMAL) Hemoglobin (05/18/2024 11:18 AM CDT) Hemoglobin 10.2(L) 11.7 - 15.7 g/dL 05/18/2024 11:39 AM CDT LABORATORY Blood BLOOD SPECIMEN / Unknown Venipuncture / Unknown 05/18/2024 11:18 AM CDT 05/18/2024 11:35 AM CDT Janak Robledo PA-C LAB - BLOOD ORDERA BLES LABORATORY [facility] Lab [address], [address] [place] [address], [facility] [phone] * Platelet count (05/18/2024 11:18 AM CDT) Platelet Count 273 150 - 450 10e3/uL 05/18/2024 11:39 AM CDT LABORATORY Blood BLOOD SPECIMEN / Unknown Venipuncture / Unknown 05/18/2024 11:18 AM CDT 05/18/2024 11:35 AM CDT Peter Alfredo MD LAB - BLOOD ORDERABL ES LABORATORY [facility] [address], [address] [place] [address], [place] [phone] * (ABNORMAL) CK total (05/18/2024 11:18 AM CDT) CK 12(L) 26 - 192 U/L 05/18/2024 12:01 PM CDT LABORATORY Blood BLOOD SPECIMEN / Unknown Venipuncture / Unknown 05/18/2024 11:18 AM CDT 05/18/2024 11:35 AM CDT Peter Alfredo MD LAB - BLOOD ORDERABL ES Performing Organization Address City/[facility]/ZIP Co de Phone Number LABORATORY [facility] [address], [address] [place] [address], [place] [phone] * Single Lumen Midline Placement (05/18/2024 9:15 AM CDT) Narrative Dede Downing RN - 05/18/2024 9:15 AM CDT Dede Downing RN ? 05/18/2024 ??9:19 AM [facility] Single Lumen Midline Placement Date/Time: 05/18/2024 [...] procedure a time out was called ?? [place] Protocol: the Joint Commission [place] Protocol was followed ?? Preparation: Patient was [...] type: valved Catheter size: 4 Fr Brand: Rabbit TV Lot number: [id number] Placement method: MST and ultrasound Number of [...] CBC with platelets (05/16/2024 8:42 AM CDT) [facility] WBC Count 15.9(H) 4.0 - 11.0 10e3/uL 05/16/2024 9:09 AM CDT LABORATORY RBC Count 3.99 3.80 - 5.20 10e6/uL 05/16/2024 9:09 AM CDT LABORATORY Hemoglobin 10.2(L) 11.7 - 15.7 g/dL 05/16/2024 9:09 AM CDT LABORATORY Hematocrit 35.0 35.0 - 47.0 % 05/16/2024 9:09 AM CDT LABORATORY MCV 88 78 - 100 fL 05/16/2024 9:[address] [facility] MCH 25.6(L) 26.5 - 33.0 pg 05/16/2024 9:09 AM [facility] MCHC 29.1(L) 31.5 - 36.5 g/dL 05/16/2024 9:09 AM [facility] RDW 20.1(H) 10.0 - 15.0 % 05/16/2024 9:09 AM [facility] Platelet Count 285 150 - 450 10e3/uL 05/16/2024 9:09 AM [facility] Blood STRUCTURE OF RIGHT UPPER LIMB / Unknown Venipuncture / Unknown 05/16/2024 8:42 AM CDT 05/16/2024 9:05 AM CDT Anna Fajardo MD LAB - BLOOD ORDERA BLES LABORATORY [facility] Lab [address], [address] [place] [address], [facility] [phone] * (ABNORMAL) Basic metabolic panel (05/16/2024 8:42 AM CDT) Sodium 142 135 - 145 mmol/L 05/16/2024 9:27 AM [facility] Potassium 3.7 3.4 - 5.3 mmol/L 05/16/2024 9:27 AM [facility] Chloride 104 98 - 107 mmol/L 05/16/2024 9:27 AM [facility] Carbon Dioxide (CO2) 31(H) 22 - 29 mmol/L 05/16/2024 9:27 AM [facility] Anion Gap 7 7 - 15 mmol/L 05/16/2024 9:27 AM [facility] Urea Nitrogen 27.0(H) 8.0 - 23.0 mg/dL 05/16/2024 9:27 AM [facility] Creatinine 0.33(L) 0.51 - 0.95 mg/dL 05/16/2024 9:27 AM [facility] GFR Estimate >90 >60 mL/min/1.7 3m2 05/16/2024 9:27 AM CDT LABORATORY Comment:eGFR calculated us2020 CKD-EPI equation. Calcium 8.9 8.8 - 10.4 [...] Fajardo MD LAB - BLOOD ORDERA BLES [facility] Lab [address], [address] [place] [address], [place] [phone] * Platelet count (05/15/2024 8:46 AM CDT) Platelet Count 255 150 - 450 10e3/uL 05/15/2024 9:30 AM CDT LABORATORY Blood STRUCTURE OF LEFT HAND / Unknown Venipuncture / Unknown 05/15/2024 8:46 AM CDT 05/15/2024 9:22 AM CDT Peter Alfredo MD LAB - BLOOD ORDERABL ES LABORATORY [facility] Lab [address], [address] [place] [address], [place] [phone] * C. difficile Toxin B PCR with [...] LABORATORY - 05/14/2024 7:39 PM CDT The [employer] Xpert C. difficile Assay, performed on the [employer]?? Instrument Systems, is a qualitative in vitro [...] MICRO GENERA L ORDERABLES [facility] LABORATORY [facility] Inf. Diseases Diag. Lab [address] [facility], [address] [place] [address] * (ABNORMAL) Basic metabolic panel (05/13/2024 [...] MD LAB - BLOOD ORDERABL ES LABORATORY [facility] Lab [address], [address] [place] [address], [facility] [phone] * (ABNORMAL) CBC with platelets (05/13/2024 8:16 [...] MD LAB - BLOOD ORDERABL ES LABORATORY [facility] Lab [address], [address] [place] [address], [facility] [phone] * Urine Culture (05/12/2024 12:20 PM CDT) Culture No Growth 05/13/2024 10:46 AM CDT [facility] LABORATORY Urine URINE SPECIMEN OBTAINED VIA INDWELLING URINARY CATHETER / Unknown Non-blood Collection / Unknown 05/12/2024 12:20 PM CDT 05/12/2024 12:28 PM CDT Noemí Bhat MD LAB - MICRO GENERAL ORDERABLES [facility] LABORATORY [facility] Inf. Diseases Diag. Lab [address] [facility], [address] [place] [address] * (ABNORMAL) Basic metabolic panel (05/11/2024 [...] MD LAB - BLOOD ORDERABL ES LABORATORY [facility] Lab [address], [address] [place] [address], [facility] [phone] * (ABNORMAL) WBC count (05/11/2024 10:55 AM CDT) WBC Count 13.4(H) 4.0 - 11.0 10e3/uL 05/11/2024 11:27 AM CDT LABORATORY Blood STRUCTURE OF RIGHT UPPER LIMB / Unknown Venipuncture / Unknown 05/11/2024 10:55 AM CDT 05/11/2024 11:24 AM CDT Ambar Joseph MD LAB - BLOOD ORDERABL ES LABORATORY [facility] Lab [address], [address] [place] [address], [place] [phone] * CT Chest/Abdomen/Pelvis w Contrast (05/10/2024 4:42 [...] CDT EXAM: CT CHEST/ABDOMEN/PELVIS W CONTRAST LOCATION: [facility] DATE: 05/10/2024 INDICATION: Fever, paraplegia, abdominal [...] 05/10/2024 EXAM: CT CHEST/ABDOMEN/PELVIS W CONTRAST LOCATION: [facility] DATE: 05/10/2024 INDICATION: Fever, paraplegia, abdominal [...] called to Chago Meadows PA-C by Dr. DouglasH. Lock on 05/10/2024 5:18 PM CDT. Chago [...] mg/dL 05/10/2024 4:59 PM CDT LABORATORY Specific [place] Urine 1.026 1.003 - 1.035 05/10/2024 4:59 [...] PA-C LAB - URINE ORDERABL ES LABORATORY [facility] Lab [address], [address] [place] [address], [facility] [phone] * EKG 12-lead, tracing only (05/10/2024 3:43 PM CDT) Systolic Blood Pressure mmHg RADIOLOGY RESULTS Diastolic Blood Pressure mmHg RADIOLOGY RESULTS Ventricular Rate 103 BPM RAD IOLOGY RESULTS Atrial Rate 103 BPM RADIOLOG Y RESULTS [place] Interval 144 ms RADIOLOG Y RESULTS QRS Duration 72 ms RADIOLO GY RESULTS QT 340 ms RADIOLOGY RESULTS QTc 445 ms RADIOLOGY RESULTS P [place] 65 degrees RADIOLOGY RESULTS R AXIS 25 degrees RADIOLOGY RESULTS T [place] 50 degrees RADIOLOGY RESULTS Interpretation ECG Sinus tachycardia Possible Left atrial enlargement Borderline ECG When compared with ECG of 12-Mar-2024 11:32, Right bundle branch block is no longer Present Confirmed by GENERATED REPORT, COMPUTER ([id number]), fashion editor BHARATH LYNN ([id number]) on 05/10/2024 3:50:14 PM RADIOLOGY RESULTS 05/10/2024 [...] - MICRO GENERAL ORDERABLES [facility] IDD LABORATORY [facility] Inf. Diseases Diag. Lab [address] [facility], [address] [place] [address], [facility] * Symptomatic Influenza A/B, RSV, [...] 2:46 PM CDT 05/10/2024 3:16 PM CDT [facility] LABORATORY - 05/10/2024 4:08 PM CDT Testing was performed using the Xpert Xpress CoV2/Flu/RSV Assay on the [employer]One GeneXpert Instrument. This test should be ordered [...] management. This test was validated by the [facility] [employer]. These laboratories are certified under the Clinical Laboratory Improvement Amendments of 1988 (CLIA-88) as qualified to perform high complexity laboratory testing. Chago Meadows PA-C LAB - MICRO GENERAL ORDERABLES LABORATORY [facility] Lab [address], [address] [place] [address], [facility] [phone] * (ABNORMAL) CK total (05/10/2024 2:44 PM CDT) CK 15(L) 26 - 192 U/L 05/10/2024 7:41 PM CDT LABORATORY Blood BLOOD SPECIMEN / Unknown Venipuncture / Unknown 05/10/2024 2:44 PM CDT 05/10/2024 3:17 PM CDT Ambar Joseph MD LAB - BLOOD ORDERABL ES LABORATORY [facility] Lab [address], [address] [place] [address], [facility] [phone] * (ABNORMAL) CRP inflammation (05/10/2024 2:44 PM CDT) [facility] CRP Inflammation 61.98(H) <5.00 mg/L 05/10/2024 7:41 PM CDT LABORATORY Blood BLOOD SPECIMEN / Unknown Venipuncture / Unknown 05/10/2024 2:44 PM CDT 05/10/2024 3:17 PM CDT Ambar oJseph MD LAB - BLOOD ORDERABL ES LABORATORY [facility] Lab [address], [address] [place] [address], [facility] [phone] * (ABNORMAL) Lipase (05/10/2024 2:44 PM CDT) Lipase 11(L) 13 - 60 U/L 05/10/2024 3:41 PM CDT LABORATORY Blood BLOOD SPECIMEN / Unknown Venipuncture / Unknown 05/10/2024 2:44 PM CDT 05/10/2024 3:17 PM CDT Chago Meadows PA-C LAB - BLOOD ORDERABL ES LABORATORY [facility] Lab [address], [address] [place] [address], [place] [phone] * (ABNORMAL) CBC with platelets and differential [...] NRBCs per 100 WBC 0 <1 /100 07/29/2 024 3:20 PM CDT LABORATORY Absolute Neutrophils [...] PA-C LAB - BLOOD ORDERABL ES LABORATORY [facility] Lab [address], [address] [place] [address], [facility] [phone] * (ABNORMAL) Comprehensive metabolic panel (05/10/2024 2:44 [...] PA-C LAB - BLOOD ORDERABL ES LABORATORY [facility] [address], [address] [place] [address], [facility] [phone] * (ABNORMAL) iStat Gases (lactate) venous, POCT [...] 05/10/2024 3:19 PM CDT [place] [facility] POC [facility] [address], [address] [place] [address], [facility] documented in this encounter Visit [...] Chronic osteomyelitis (H) Chronic osteomyelitis, site unspecified Decubitus ulcer Pressure [...] at 1821, If the patient has multiple [place] bowel stimulant agents ordered PRN, offer in [...] Caution to be used when administering multiple ROTARY SOIL STABILIZER OPERATOR depressing meds within a short time frame. [...] HOURS 1999, First dose on Fri05/12/24 at 1999, Apply [...] 12 years If the patient has multiple [place] bowel stimulant agents ordered PRN, offer in [...] Malave RN) 0916 ($Given - Provider: Nakul Moreno, MEME) 0859 ($Given - Provider: Bertha Campbell RN) Lidocaine (LIDOCARE) 4 % Patch 3 patch 3 patch, Transdermal, Administer over 12 Hours, EVERY 24 HOURS 1999, First dose on Fri05/12/24 at 1999, Apply [...] < 60 0959 ($Given - Provider: Alaina Maalve RN)210 ($Given - Provider: Maribel Clayton RN) 0916 ($Given - Provider: Nakul Moreno RN)2015 ($Given - Provider: Mateo Henry RN) 0859 ($Given - Provider: Bertha Campbell, [...] at 1600 1632 ($Given - Provider: Alaina Malave, MEME)2101 ($Given - Provider: Maribel Clayton, MEME) 0925 ($Given - Provider: Nakul Moreno RN)1546 ($Given - Provider: Melvi Beyer RN)2247 ($Given - Provider: Mateo Henry, MEME) 1000 ($Given - Provider: Bertha Campbell, MEME)1600 [...] Clayton, RN) 0917 ($Given - Provider: Nakul Moreno, RN)2016 ($Given - Provider: Mateo Henry, MEME) [...] at 1821, If the patient has multiple [place] bowel stimulant agents ordered PRN, offer in [...] Caution to be used when administering multiple ROTARY SOIL STABILIZER OPERATOR depressing meds within a short time frame. HYDROmorphone (DILAUDID) tablet 2-4 mg 2-4 mg, Oral, EVERY 3 HOURS PRN, moderate pain, Starting on Fri05/21/24 at 1113, Moderate pain 2 mg ,, 4 mg severe pain Hold for RASS,-1 PO2<88 % SBP <100 RR<10 0110 ($Given - Provider: Freida Stout RN)0501 ($Given - Provider: Freida Stout RN)1040 ($Given - Provider: Alaina Malave, MEME)1632 ($Given - Provider: Alaina Malave, MEME)2101 ($Given - Provider: Maribel Clayton RN) 0011 ($Given - Provider: Matoe Henry RN)0401 ($Given - Provider: Mateo Henry [...] 12 years If the patient has multiple [place] bowel stimulant agents ordered PRN, offer in [...] documented as of this encounter Care Teams Engagement Manager Relationship Specialty Start Date End Date Flo Mckeon MD [address] [address] PCP - General Family Medicine 03/09/24 documented as of this encounter
--- OUTSIDE RECORDS SUMMARY | 2024-07-20 11:37 | XMS_ITS | Continuity of Care Document ---
Author Organization [facility] Address [address] [place] [address] Phone Care Team Providers Care Senior Risk Manager Name Role Phone Susan Guerrero Unavailable [...] Available - Active Procedures Procedure Date Office/Outpatient Visit,[facility] 2013 Advance Directives Directive Yes / No Effective Date File Name No Information Encounters Encounter Description Practice Location Reason(s) For Visit Diagnoses Date Provider Providers Copied on Encounter [facility], [address], [place], [place], [id number], [place] tel:[phone] [facility] No Information 6 Pandiscio Susan. [facility], [address] [place] [address], [address], [place], [place], [id number], [place]. tel:[phone] Office/Outpat ient Visit,[facility], [address], [place], [address], [place] tel:[phone] [facility] No Information 4 Pandiscio Susan. [facility], [address], [address], [place], [place], [id number], [place]. tel:[phone] Referring Provider: Freida Doe, [facility] [address] [place], [address]. tel:[phone] Family History Family Member Type Diagnosis Age [...]
--- OUTSIDE RECORDS SUMMARY | 2024-07-20 11:37 | XMS_ITS | Encounter Summary ---
Author Organization [facility] Address [address] [place] [address] Care Team Providers Care Primary Care Physician Name Role Phone Elsewhere, Pcp Primary Care Provider Unavailabl e Encounter Details Date Type Department Care Team (Latest Contact Info) Description 10/18/2023 Intake [facility] Social History Tobacco Use Types Packs/Day Years Used Date Smoking Tobacco: Never Smokeless Tobacco: Never Alcohol Use Standard Drinks/Week Comments Defer 0 (1 standard drink = 0.6 oz pur e alcohol) [facility] Utilities Answer Date Recorded In the past 12 months has [facility] [employer], gas, oil, or water [employer] threatened to shut off services in your [...] Pending 10/18/2023 10/18/2023 10/18/2023 9 :11 PM BELTING INSPECTOR COVID19 11/13/2023 11/13/2023 12/03/2023 5:55 AM BELTING INSPECTOR documented as of this encounter Care Teams Primary Care Physician Relationship Specialty Start Date End Date Elsewhere, Pcp PCP - General Internal Medicine 12/09/23 documented as of this encounter
--- OUTSIDE RECORDS SUMMARY | 2024-07-20 11:37 | XMS_ITS | Referral Summary ---
Author Organization [facility] Address [address] [place] [address] Care Team Providers Care Tax Assistant Name Role Phone Elsewhere, Pcp Primary Care Provider Unavailabl e Source Comments Patient records contain information from all sites at [facility]. For routine questions regarding patient records, call [phone] during business hours, M-F 8:00 AM - 5:00 PM Central Time. Record requests for emergency care only can be directed to [phone] at any time.[facility] Allergies Active Allergy Reactions Criticality Noted [...] drink = 0.6 oz pur e alcohol) [facility] Utilities Answer Date Recorded In the [...] your living situation today? I have a [facility] place to live 10/19/2023 Sex and Gender Information Value Date Recorded Sex Assigned at Not on file Gender Identity Not on file Sexual Orientation Not on file Last Filed Vital Signs Vital Sign Reading Time Taken Comments Blood Pressure 110/68 11/28/2023 8:43 AM CERTIFIED CAREGIVER Pulse 76 11/28/2023 8:43 AM CERTIFIED CAREGIVER Temperature 36.7 ??C (98 ??F) 11/28/2023 8:43 AM CERTIFIED CAREGIVER Respiratory Rate 18 11/28/2023 8:43 AM CERTIFIED CAREGIVER Oxygen Saturation 95% 11/28/2023 8:43 AM CERTIFIED CAREGIVER RA Inhaled Oxygen Concentration - - Weight 58.8 kg (129 lb 9.6 oz) 11/28/2023 8:43 A M CERTIFIED CAREGIVER Height 152 cm (4' 11.84) 10/19/2023 5:00 AM CERTIFIED CAREGIVER Body Mass Index 25.44 10/19/2023 5:00 AM CERTIFIED CAREGIVER Plan of Treatment Not on file Procedures Procedure Name Priority Date/Time Associated Diagnosis Comments BASIC METABOLIC PANEL, S/P Routine 11/04/2023 6:52 AM CERTIFIED CAREGIVER Hypokalemia from Last 3 Months or Most Recently Relevant to Health Maintenance Results * (ABNORMAL) Basic Metabolic Panel (11/04/2023 6:52 AM CERTIFIED CAREGIVER) Potassium, P 4.1 3.6 - 5.2 mmol/L 11/04/2023 8:14 AM CERTIFIED CAREGIVER NPRG Sodium, P 142 135 - 145 mmol/L 11/04/2023 8:14 AM CERTIFIED CAREGIVER NPRG Chloride, P 102 98 - 107 mmol/L 11/04/2023 8:14 AM CERTIFIED CAREGIVER NPRG Bicarbonate, P 30(H) 22 - 29 mmol/L 11/04/2023 8:14 AM CERTIFIED CAREGIVER NPRG Anion Gap, P 10 7 - 15 11/04/2023 8:14 AM CERTIFIED CAREGIVER NPRG BUN (Blood Urea Nitrogen), P 21 6 - 21 mg/dL 11/04/2023 8:14 AM CERTIFIED CAREGIVER NPRG Creatinine 0.28(L) 0.59 - 1.04 mg/dL 11/04/2023 8:14 AM CERTIFIED CAREGIVER NPRG Estimated GFR (eGFR) >90 >=60 mL/min/BSA 11/04/2023 8:14 AM CERTIFIED CAREGIVER NPRG Comment: Estimated GFR calculated using the 2020 CKD_EPI creatinine equation. Calcium, Total, P 9.1 8.8 - 10.2 mg/dL 11/04/2023 8:14 AM CERTIFIED CAREGIVER NPRG Glucose, P 79 70 - 140 mg/dL 11/04/2023 8:14 AM CERTIFIED CAREGIVER NPRG Blood (Blood, Venous) 11/04/2023 6:52 AM CERTIFIED CAREGIVER 11/04/2023 7:43 AM CERTIFIED CAREGIVER Osiris Otero APRN [employer] LAB BLOOD A DD-ON [facility] [address] [place] [address], [facility] NPRG [facility] [address] [place] [address] from Last 3 Months or Most Recently Relevant to Health Maintenance Advance Directives For more information, please contact: [phone] Documents on File Type Date Recorded Patient Abrasive Sawyer Expl anation Advance Directives 09/19/2023 4:06 PM POLS T/MOLST * DNR/DNI (Latest Code Status on File) Date Activated Date Inactivated Comments 10/19/2023 6:50 PM 10/27/2023 4:16 PM * Full Code Date Activated Date Inactivated Comments 10/19/2023 2:13 AM 10/19/2023 6:50 PM Question Answer Comments Full Code: Discussed Care Teams Tax Assistant Relationship Specialty Start Date End Date Elsewhere, Pcp PCP - General Internal Medicine 12/09/23
--- OUTSIDE RECORDS SUMMARY | 2024-07-20 11:37 | XMS_ITS | Clinical Summary ---
Author Organization [facility] Address [address] [place] [address] Care Team Providers Care Fur Repairer Name Role Phone Elsewhere, Pcp Primary Care Provider Unavailabl e Source Comments Patient records contain information from all sites at [facility]. For routine questions regarding patient records, call [phone] during business hours, M-F 8:00 AM - 5:00 PM Central Time. Record requests for emergency care only can be directed to [phone] at any time.[facility] Allergies Active Allergy Reactions Criticality [...] 09/19/2023 Hypertension Essential Primary 09/19/2023 Corticosteroid Treatment [facility] 05/2023 Paraplegia 09/19/2023 Osteoporosis 06/28/2021 Acute [...] drink = 0.6 oz pur e alcohol) [facility] Utilities Answer Date Recorded In [...] Comments Blood Pressure 110/68 11/28/2023 8:43 AM FORK TRUCK OPERATOR Pulse 76 11/28/2023 8:43 AM FORK TRUCK OPERATOR Temperature 36.7 ??C (98 ??F) 11/28/2023 8:43 AM FORK TRUCK OPERATOR Respiratory Rate 18 11/28/2023 8:43 AM FORK TRUCK OPERATOR Oxygen Saturation 95% 11/28/2023 8:43 AM FORK TRUCK OPERATOR RA Inhaled Oxygen Concentration - - Weight 58.8 kg (129 lb 9.6 oz) 11/28/2023 8:43 A M FORK TRUCK OPERATOR Height 152 cm (4' 11.84) 10/19/2023 5:00 AM FORK TRUCK OPERATOR Body Mass Index 25.44 10/19/2023 5:00 AM FORK TRUCK OPERATOR Plan of Treatment Health Maintenance Due [...] METABOLIC PANEL, S/P Routine 11/04/2023 6:52 AM FORK TRUCK OPERATOR Hypokalemia from Last 3 Months or Most Recently Relevant to Health Maintenance Results * (ABNORMAL) Basic Metabolic Panel (11/04/2023 6:52 AM FORK TRUCK OPERATOR) Potassium, P 4.1 3.6 - 5.2 mmol/L 11/04/2023 8:14 AM FORK TRUCK OPERATOR NPRG Sodium, P 142 135 - 145 mmol/L 11/04/2023 8:14 AM FORK TRUCK OPERATOR NPRG Chloride, P 102 98 - 107 mmol/L 11/04/2023 8:14 AM FORK TRUCK OPERATOR NPRG Bicarbonate, P 30(H) 22 - 29 mmol/L 11/04/2023 8:14 AM FORK TRUCK OPERATOR NPRG Anion Gap, P 10 7 - 15 11/04/2023 8:14 AM FORK TRUCK OPERATOR NPRG BUN (Blood Urea Nitrogen), P 21 6 - 21 mg/dL 11/04/2023 8:14 AM FORK TRUCK OPERATOR NPRG Creatinine 0.28(L) 0.59 - 1.04 mg/dL 11/04/2023 8:14 AM FORK TRUCK OPERATOR NPRG Estimated GFR (eGFR) >90 >=60 mL/min/BSA 11/04/2023 8:14 AM FORK TRUCK OPERATOR NPRG Comment: Estimated GFR calculated using the 2020 CKD_EPI creatinine equation. Calcium, Total, P 9.1 8.8 - 10.2 mg/dL 11/04/2023 8:14 AM FORK TRUCK OPERATOR NPRG Glucose, P 79 70 - 140 mg/dL 11/04/2023 8:14 AM FORK TRUCK OPERATOR NPRG Blood (Blood, Venous) 11/04/2023 6:52 AM FORK TRUCK OPERATOR 11/04/2023 7:43 AM FORK TRUCK OPERATOR Osiris Otero APRN C.N.P. LAB BLOOD A DD-ON [facility] [address] [place] [address], [place] NPRG [facility] [address] [place] [address] from Last 3 Months or Most Recently Relevant to Health Maintenance Advance Directives For more information, please contact: [phone] Documents on File Type Date Recorded Patient Highway Truck Driver Expl anation Advance Directives 09/19/2023 4:06 PM POLS T/MOLST * DNR/DNI (Latest Code Status on File) Date Activated Date Inactivated Comments 10/19/2023 6:50 PM 10/27/2023 4:16 PM * Full Code Date Activated Date Inactivated Comments 10/19/2023 2:13 AM 10/19/2023 6:50 PM Question Answer Comments Full Code: Discussed Care Teams Fur Repairer Relationship Specialty Start Date End Date Elsewhere, Pcp PCP - General Internal Medicine 12/09/23
== END 2024-07-03 19:21 | disposition home or self-care (01) ==
LOC: AMB 07-20 10:37
PROVIDERS: PCP Family Medicine; Visit Provider Family Medicine
DX: G82.20 Paraplegia, unspecified (principal); Z74.01 Bed confinement status
CPT/HCPCS: A0425; A0428

== ENCOUNTER 2025-04-08 21:26 | Inpatient (IN) | payer MEDICARE, SELFPAY ==
[2025-04-08] VITALS (12 sets, daily range): BP systolic 111–188; BP diastolic 39–85; PULSE 118–129; RESP 20–22; TEMP 36.8–38.9; O2SAT 86–98; BMI 27.0
--- OUTSIDE RECORDS SUMMARY | 2025-04-08 21:29 | XMS_ITS | Clinical Summary ---
Author Organization [facility] Address [address] [place] [id number] Phone Care Team Providers Care Orchestra Leader Name Role Phone Flo Mckeon MD Primary Care Provider [phone] Medications ibuprofen (ADVIL,MOTRIN) 400 MG tablet prn 0 4 Active polyethylene glycol (MIRALAX) powder 17grams po 4 Active mineral oil-hydrophilic petrolatum (AQUAPHOR) ointment Apply bid 4 Active traZODone (DESYREL) 50 MG tablet 1 po qhs 0 4 Active oxyCODONE (ROXICODONE) 5 MG immediate release tablet prn 0 4 Active pseudoephedrine (SUDAFED) 30 MG tablet 2 po qday 4 Active doxycycline (VIBRAMYCIN) 100 MG capsule 1 po bid 4 Active senna-docusate (SENOKOT S) 8.6-50 MG per tablet 1 po bid 4 Active bisacodyl (DULCOLAX) 10 MG suppository prn 0 4 Active predniSONE (DELTASONE) 10 MG tablet 1 po qday,may decrease to 5mg 0 4 Active Active Problems Problem Noted Date Diagnosed Date Urinary tract infection 01/31/2014 Shortness of breath 01/31/2014 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 Bacteremia 01/31/2014 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 Social History Tobacco Use Types Packs/Day Years Used Date Smoking Tobacco: Never Assessed Comments Unknown Sex and Gender Information Value Date Recorded Sex Assigned at Not on file Legal Sex Female 4:23 PM MDT Gender Identity Not on file Sexual Orientation [...] CDT Plan of Treatment Not on file Insurance PM INTERFACED INSURANCE PM INTERFACED INSURANCE PM INTERFACED INSURANCE Care Teams Orchestra Leader Relationship Specialty Start Date End Date Flo Mckeon MD [address] [place] [address] PCP - General 05/11/24
--- OUTSIDE RECORDS SUMMARY | 2025-04-08 21:29 | XMS_ITS | Clinical Summary ---
Author Organization [facility] Address [address] [address] Care Team Providers Care Commutator V Ring Assembler Name Role Phone Flo Mckeon MD Primary Care Provider [phone] Source Comments You are receiving this document as you are listed as the primary care provider,follow-up provider, or the patient has been referred to you for consultation.This is in compliance with the Medicare and[facility] EHR Incentive Program,which states Providers who transition their patient to another setting of careor provider of care or refers their patient to another provider of care shouldprovide summary care record for each transition of care or referral. [employer] Medications acetaminophen (TYLENOL ARTHRITIS) 650 MG controlled release tablet as needed Activ e furosemide (LASIX) 20 MG tablet Daily 06/11/2021 Active diphenhydrAMINE- APAP 25-500 MG tablet Bedtime as needed Active predniSONE (DELTASONE) 5 MG tablet 10 mg daily. 06/11/2021 Active aspirin EC 81 MG enteric coated tablet Daily Active pseudoephedrine (WCEKZYL82SPOO) 120 MG 12 hour release tablet Daily Activ e calcium carbonate-vitami n D 600-200 MG-UNIT tablet Take 2 Tablets by mouth daily. Active multivitamin (THERAGRAN) tablet Take 1 Tablet by mouth daily. Active methotrexate 2.5 MG tablet Take 7 Tablets by mouth once every week. 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 Immunizations Immunization Administration Dates Next Due DT Ped 03/23/1987 Social History Tobacco Use Types Packs/Day Years Used Date Smoking Tobacco: Never Assessed Comments Unknown Sex and Gender Information Value Date Recorded Sex Assigned at Not on file Legal Sex Female 5:02 AM CDT Gender Identity Not on file Sexual Orientation Not on file Plan of Treatment Health Maintenance Due Date Last Done Comments Medicare Welcome Visit 1945 Pneumococcal Vaccine 50+ Yrs (1 of 1 - PCV) 1996 Zoster/Shingles Vaccine (1 of 2) 1996 Dexa 12/31/2011 RSV Vaccine (1 - 1-dose 75+ series) 2021 COVID-19 Vaccine (1 - 2023- season) 2024 Influenza Vaccine (Season Ended) 2025 07/18/2009 DTaP/Tdap/Td Vaccine (5 - Tdap) 04/22/2028 04/22/2018, 04/22/2015, 04/26/2008, Additional history exists Hep C Screening (Preventive Services) Completed 06/28/2021 HepA Vaccine Aged Out No longer eligi ble based on patient's age to complete this topic HepB Vaccine Aged Out No longer eligi ble based on patient's age to complete this topic Hib Vaccine Aged Out No longer eligi ble based on patient's age to complete this topic MCV4 Vaccine Aged Out No longer eligi ble based on patient's age to complete this topic Meningococcal B Vaccine Aged Out No l onger eligible based on patient's age to complete this topic Procedures Procedure Name Priority Date/Time Associated Diagnosis Comments HEPATITIS C ANTIBODY, WITH REFLEX (ANTI-HCV) Routine 06/28/2021 2:27 PM CDT Rheumatoid arthritis [...] 2:27 PM CDT 06/28/2021 2:28 PM CDT us Lorenza Q Black DO LAB_1 Final Result [facility] [address] [place] [address], [facility] from Last 3 Months or Most Recently Relevant to Health Maintenance Insurance [employer] Care Teams Commutator V Ring Assembler Relationship Specialty Start Date End Date Flo Mckeon MD [address] [place], [place] [id number] PCP - General 06/21/21
--- OUTSIDE RECORDS SUMMARY | 2025-04-08 21:29 | XMS_ITS | CCD ---
Author Name Interface, [id number] lity Address [address] [place] [address] [facility] Address [address] [place] [id number] Reason for Visit Diagnostic Results Social History
--- OUTSIDE RECORDS SUMMARY | 2025-04-08 21:29 | XMS_ITS | Clinical Summary ---
Author Organization [facility] Address [address] [place] [address] Care Team Providers Care [id number] Software Engineer Name Role Phone [facility] Care, ro Unavailable [phone] Tayler Gomez NP Primary Care Provide r Tayler Gomez NP Unavailable [phone] Wendy Simon MD Unavailable [phone] Cristal Gray IT SERVICE TECHNICIAN Unavailable [phone] Michaela Driver Unavailable [phone] Kera Daily OUTBOUND SALES PROFESSIONAL Unavailable [phone] Teresa Rincon RN Unavailable [phone] Alberto Bhandari PharmD Unavailable [phone] Allergies Active Allergy Reactions Criticality Noted Date Comments Piperacillin Anaphylaxis,*Unknown High 09/18/2023 Per SNF Per patient, has tolerated Augmentin Tazobactam Anaphylaxis,*Unknown High 09/18/2023 Per SNF Vancomycin Anaphylaxis High 03/25/2024 Medications polyethylene glycoL (Miralax) 17 gram/scoop powder Mix 1 scoop in liquid then take by mouth. Active docusate (Dulcolax Stool Softener, dss,) 100 mg capsule Take 100 mg by mouth once daily. Active L.acid/L.casei/ B.bif/B.eduardo/FOS (PROBIOTIC BLEND ORAL) Take by mouth. Act job gabapentin (NEURONTIN) 300 mg capsuleIndicati ons:Other chronic pain Take 1 Capsule (300 mg) by mouth three times daily. 180 Capsule 2 11/19/19 25 Active nystatin powder (MYCOSTATIN) powderIndicatio ns:Dermatitis Apply 1 Strip topically to affected area(s) 2 times daily if needed (redness, itching). 60 g 5 11/17/19 25 Active medication order composer Vitamin C, 1000mg by mouth daily 11/22/19 25 Active zinc sulfate 50 mg zinc (220 mg) capsule Take 1 Capsule (220 mg) by mouth once daily. (220mg zinc sulfate is equal to 50mg of elemental zinc) 11/22/19 25 Active acetaminophen SR (TYLENOL ARTHRITIS) 650 mg Extended-Releas e tablet Pt takes 2 tablet by mouth twice daily as needed. Max acetaminophen dose: 4000mg in 24 hrs. 11/22/19 25 Active furosemide (Lasix) 20 mg tabletIndicatio ns:Chronic diastolic (congestive) heart failure (HC) Take 1 Tablet (20 mg) by mouth once daily. Pharmacy: new prescriber 90 Tablet 1 11/22/19 25 Active predniSONE (DELTASONE) 5 mg tabletIndicatio ns:Rheumatoid arthritis, involving unspecified site, unspecified whether rheumatoid factor present (HC) Take 2 Tablets (10 mg) by mouth once daily. Pharmacy: new prescriber 180 Tablet 1 11/22/19 25 Active metoprolol succinate (TOPROL XL) 50 mg sustained-relea se tabletIndicatio ns:Chronic diastolic (congestive) heart failure (HC) Take 1 Tablet (50 mg) by mouth once daily. Pharmacy: new prescriber 90 Tablet 1 11/22/19 25 Active ibuprofen-aceta minophen 125-250 mg tab Take 2 Tablets by mouth once daily if needed. 11/22/19 25 Active buprenorphine 15 mcg/hr (Butrans) 15 mcg/hour transdermal patchIndication s:Chronic pain syndrome,Rheuma toid arthritis, involving unspecified site, unspecified whether rheumatoid factor present (HC) Apply 1 Patch on dry, clean, hairless skin once weekly. 4 Patch 03/10/20 25 Active HYDROmorphone 2 mg tabletIndicatio ns:Chronic pain syndrome Take 1 Tablet (2 mg) by mouth every 4 hours if needed for Pain (max dose 3 per day). 90 Tablet 03/10/20 25 Active ketoconazole 2 % creamIndication s:Intertrigo Apply topically to affected area(s) two times daily. 60 g 03/11/20 25 Active HYDROmorphone 2 mg tabletIndicatio ns:Chronic pain syndrome Take 1 Tablet (2 mg) by mouth every 4 hours if needed for Pain (max dose 3 per day). 90 Tablet 01/27/20 25 025 Discontin ued(Reord er (E-cancel not sent)) buprenorphine 10 mcg/hr (Butrans) 10 mcg/hour transdermal patchIndication s:Chronic pain syndrome,Rheuma toid arthritis, involving unspecified site, unspecified whether rheumatoid factor present (HC) Apply 1 Patch on dry, clean, hairless skin once weekly. Apply 1 patch on dry, clean, hairless skin once weekly. 4 Patch 02/06/20 25 025 Discontin ued(*Medi cation adjustmen t) Active Problems Problem Noted Date Diagnosed Date Indwelling urinary catheter present 11/07/2024 H/O: upper GI bleed 11/07/2024 Pressure ulcer of right buttock, stage [address] 11/04/2024 Type 2 diabetes mellitus with other skin ulcer ( CODE) 11/04/2024 Non-healing non-surgical wound 03/25/2024 Obstructive sleep apnea syndrome in adult 2023 Anemia 09/19/2023 Chronic diastolic (congestive) heart failure 05/2023 Other adrenocortical insufficiency 09/19/2023 Pressure injury of skin of buttock 09/19/2023 Primary hypertension 09/19/2023 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 Paraplegia 01/18/2014 Rheumatoid arthritis 01/18/2014 Seasonal allergies 01/18/2014 Low back pain radiating to right leg 01/18/2014 Neurogenic bladder 01/18/2014 Constipation 01/18/2014 Scoliosis 01/18/2014 Resolved Problems Problem Noted Date Diagnosed Date Resolved Date Spinal muscular atrophy, unspecified 11/04/2024 12/17/2024 Quadriplegia, unspecified 11/04/2024 Shock, unspecified 11/04/2024 Acute on chronic diastolic ( congestive) heart failure 11/04/2024 11/07/2024 Chronic obstructive pulmonar y disease, unspecified COPD type 11/04/2024 02/08/2025 Fungal sepsis 03/25/2024 11/07/2024 Sepsis secondary to UTI 03/25/202410/14 Overview (03/25/2024): fungal Acute gastric ulcer without hemorrhage or perforation 11/06/2022 11/07/2024 Overview (11/06/2022): EGD 10/2021 pyloric channel ulcer, H. pylori negative MRSA bacteremia 01/18/2014 11/07/2024 A-fib 01/18/2014 12/17/2024 Encounters Date Type Department Care Team Description 04/08/2025 Nurse Triage [address] [address] Tayler Gomez NP [facility] (fever) 04/07/2025 9:45 AM CDT Home Care Visit [address] [address] Nmico Palacios MASTER TAX ADVISOR - HOME VISIT 04/04/2025 11:30 AM CDT Home Care Visit [address] [address] Rupinder Canchola RN SN - HOME VISIT 04/04/2025 8:30 AM CDT Home Care Visit [address] [address] Nimco Palacios MASTER TAX ADVISOR - HOME VISIT 04/01/2025 12:00 PM CDT Home Care Visit [address] [address] Rosmery Diaz RN SN - HOME VISIT 03/31/2025 8:30 AM CDT Home Care Visit [address] [address] Nimco Palacios MASTER TAX ADVISOR - HOME VISIT 03/31/2025 Patient Outreach [facility] Care Management - Advanced Care Team [address] [place] [phone] Catherine Dinh, [facility] (Follow-up pain) 03/30/2025 11:30 AM CDT Home Care Visit [address] [address] Rupinder Canchola RN SN - HOME VISIT 03/28/2025 12:30 PM CDT Home Care Visit [address] [address] Rupinder Canchola RN SN - HOME VISIT 03/28/2025 8:30 AM CDT Home Care Visit [address] [address] Nicmo Palacios MASTER TAX ADVISOR - HOME VISIT 03/25/2025 10:00 PM CDT Home Care Visit [address] [address] Alaina Barone RN SN - AFTER HOURS HOME VISIT 03/25/2025 1:30 PM CDT Home Care Visit [address] [address] Rosmery Diaz RN SN - HOME VISIT 03/25/2025 Nurse Triage [address] [address] Tayler Gomez NP Ostomy 03/24/2025 8:30 AM CDT Home Care Visit [address] [address] Nimco Palacios MASTER TAX ADVISOR - HOME VISIT 03/23/2025 11:00 AM CDT Home Care Visit [address] [address] Rupinder Canchola RN SN - HOME VISIT 03/21/2025 2:00 PM CDT Home Care Visit [address] [address] Rupinder Canchola RN SN - HOME VISIT 03/21/2025 8:30 AM CDT Home Care Visit [address] [address] Nimco Palacios MASTER TAX ADVISOR - HOME VISIT 03/21/2025 12:45 AM CDT Home Care Visit [address] [address] Sol Christine RN SN - WOUND/OSTOMY CHART CONSULT 03/18/2025 11:30 AM CDT Home Care Visit [address] [address] Rosmery Diaz RN SN - HOME VISIT 03/17/2025 8:30 AM CDT Home Care Visit [address] [address] Nimco Palacios MASTER TAX ADVISOR - HOME VISIT 03/16/2025 11:30 AM CDT Home Care Visit [address] [address] Rosmery Diaz RN SN - OASIS RECERTIFICATION 03/16/2025 Plan of Care Documentation [address] [address] 03/14/2025 11:00 AM CDT Home Care Visit [address] [address] Rupinder Canchola RN SN - LONG VISIT (>90 MINUTES) 03/14/2025 8:45 AM CDT Home Care Visit [address] [address] Nimco Palacios MASTER TAX ADVISOR - HOME VISIT 03/14/2025 Orders Only [facility] [address] [place] [address] Wendy Simon MD Lab 03/14/2025 Orders Only [facility] [address] [place] [address] Rupinder Canchola RN <No scans attached> 03/11/2025 9:30 AM CDT Home Care Visit [address] [address] Rupinder Canchola RN SN - LONG VISIT (>90 MINUTES) 03/11/2025 8:30 AM CDT Home Care Visit [address] [address] Nimco Palacios MASTER TAX ADVISOR - HOME VISIT 03/10/2025 12:30 PM CDT Home Visit [address] [address] Tayler Gomez NP [facility] 03/09/2025 12:30 PM CDT Home Care Visit [address] [address] Rupinder Canchola RN SN - HOME VISIT 03/09/2025 Travel 03/08/2025 8:30 AM CDT Home Care Visit [address] [address] Nimco Palacios MASTER TAX ADVISOR - HOME VISIT 03/07/2025 8:30 AM CDT Home Care Visit [address] [address] Shital Delcid RN SN - HOME VISIT 03/04/2025 2:00 PM CDT Home Care Visit [address] [address] Rupinder Canchola RN SN - HOME VISIT 03/04/2025 Orders Only [facility] Scanner 1 scan: (1-Ord) INCOMING RECORDS-AUDIOGRAM, JOURNEY AUDIOLOGY AND HEARING CARE, 03/04/2025 03/02/2025 8:30 AM CDT Home Care Visit [address] [address] Nimco Palacios MASTER TAX ADVISOR - HOME VISIT 02/28/2025 12:00 PM CDT Home Care Visit [address] [address] Rosmery Diaz, RN SN - HOME VISIT 02/28/2025 8:30 AM CDT Home Care Visit [address] [address] Nimco Palacios MASTER TAX ADVISOR - HOME VISIT 02/25/2025 11:30 AM CDT Home Care Visit [address] [address] Rosmery Diaz, MEME SN - HOME VISIT 02/24/2025 9:15 AM CDT Home Care Visit [address] [address] Nimco Palacios MASTER TAX ADVISOR - HOME VISIT 02/22/2025 Patient Outreach [facility] Care Management - Advanced Care Team [address] [place] [phone] Michaela Driver [facility] (Care coordination - ENT referral) 02/21/2025 11:00 AM CDT Home Care Visit [address] [address] Rupinder Canchola RN SN - HOME VISIT 02/21/2025 10:00 AM CDT Home Care Visit [address] [address] Nimco Palacios MASTER TAX ADVISOR - HOME VISIT 02/18/2025 2:00 PM CDT Home Care Visit [address] [address] Rupinder Canchola RN SN - LONG VISIT (>90 MINUTES) 02/17/2025 9:15 AM CDT Home Care Visit [address] [address] Nimco Palacios MASTER TAX ADVISOR - HOME VISIT 02/16/2025 3:00 PM CDT Home Care Visit [address] [address] Rosmery Diaz, MEME SN - PRN HOME VISIT 02/14/2025 10:15 AM CDT Home Care Visit [address] [address] Nimco Palacios MASTER TAX ADVISOR - HOME VISIT 02/14/2025 8:45 AM CDT Home Care Visit [address] [address] Rosmery Diaz RN SN - HOME VISIT 02/11/2025 1:00 PM CDT Home Care Visit [address] [address] Rosmery Diaz RN SN - HOME VISIT 02/11/2025 Patient Outreach [facility] Care Management - Advanced Care Team [address] [place] [address] Michaela Driver [facility] (Follow up phone call and 3 mos review) 02/10/2025 8:45 AM CDT Home Care Visit [address] [address] Nimco Palacios MASTER TAX ADVISOR - HOME VISIT 02/08/2025 10:30 AM CDT Home Visit [address] [address] Wendy Simon MD [facility] 02/07/2025 12:00 PM CDT Home Care Visit [address] [address] Rosmery Diaz RN SN - HOME VISIT 02/07/2025 8:00 AM CDT Home Care Visit [address] [address] Nimco Palacios MASTER TAX ADVISOR - HOME VISIT 02/07/2025 Travel 02/04/2025 12:00 PM CDT Home Care Visit [address] [address] Rupinder Canchola RN SN - HOME VISIT 02/04/[address] [address] Tayler Gomez NP Refill Request (buprenorphine 10 mcg/hr (Butrans) 10 mcg/hour transdermal patch) 02/04/2025 Nurse Triage [address] [address] Tayler Gomez NP Medication Management 02/03/2025 9:00 AM CDT Home Care Visit [address] [address] Nimco Palacios MASTER TAX ADVISOR - HOME VISIT 02/02/2025 12:00 PM CDT Home Care Visit [address] [address] Rupinder Canchola, RN SN - PRN HOME VISIT 02/01/2025 8:30 AM CDT Home Care Visit [address] [address] Nimco Palacios MASTER TAX ADVISOR - HOME VISIT 01/31/2025 12:00 PM CDT Home Care Visit [address] [address] Rupinder Canchola RN SN - HOME VISIT 01/28/2025 11:00 AM CDT Home Care Visit [address] [address] Jennifer Jones RN SN - HOME VISIT 01/27/2025 8:45 AM CDT Home Care Visit [address] [address] Nimco Palacios MASTER TAX ADVISOR - HOME VISIT 01/26/[address] [address] Tayler Gomez NP Refill Request 01/26/2025 Nurse Triage [address] [address] Tayler Gomez NP Medication Management 01/24/2025 1:00 PM CDT Home Care Visit [address] [address] Rupinder Canchola RN SN - HOME VISIT 01/24/2025 8:45 AM CDT Home Care Visit [facility] [address] [place] [address] Nimco Palacios MASTER TAX ADVISOR - HOME VISIT 01/22/2025 10:30 AM CDT Home Care Visit [facility] [address] [place] [phone] Vickie Pabon, BINGO CHECKER BINGO CHECKER - HOME VISIT 01/20/2025 10:00 AM CDT Home Care Visit [address] [address] Vickie Pabon BINGO CHECKER BINGO CHECKER - HOME VISIT 01/20/2025 8:45 AM CDT Home Care Visit [address] [address] Nimco Palacios MASTER TAX ADVISOR - HOME VISIT 01/19/2025 Home Care Visit [address] [address] Fabi Billingsley, RN CARE COORDINATION 01/18/2025 Plan of Care Documentation [address] [address] 01/17/2025 12:30 PM CDT Home Care Visit [address] [address] Rupinder Canchola RN SN - OASIS RECERTIFICATION 01/17/2025 8:45 AM CDT Home Care Visit [address] [address] Nimco Palacios MASTER TAX ADVISOR - HOME VISIT 01/14/2025 12:00 PM CDT Home Care Visit [address] [address] Rosmery Diaz, MEME SN - HOME VISIT 01/14/2025 Patient Outreach [facility] Care Management - Advanced Care Team [address] [place] [phone] Michaela Driver [facility] (Follow up phone call - access to [employer] benefits) 01/13/2025 8:45 AM CDT Home Care Visit [address] [address] Nimco Palacios MASTER TAX ADVISOR - HOME VISIT 01/13/2025 Patient Outreach [facility] Care Management - Advanced Care Team [address] [place] [address] [facility] - [facility] referral) 01/12/2025 10:30 AM CDT Home Visit [address] [address] Wendy Simon MD [facility] 01/10/2025 12:30 PM CDT Home Care Visit [address] [address] Rosmery Diaz, MEME SN - HOME VISIT 01/10/2025 8:45 AM CDT Home Care Visit [address] [address] Nimco Palacios MASTER TAX ADVISOR - HOME VISIT 01/10/2025 Travel 01/07/2025 1:00 PM CDT Home Care Visit [address] [address] Rosmery Diaz, MEME SN - HOME VISIT 01/07/2025 Home Care Visit [address] [address] Rupinder Canchola RN CARE COORDINATION 01/06/2025 10:00 AM CDT Home Care Visit [address] [address] Nimco Palacios MASTER TAX ADVISOR - HOME VISIT from Last 3 Months Immunizations Immunization Administration Dates Next Due Dtap Unspecified Formulation 03/23/1987 Influenza Virus, Unspecified 07/18/2009 Tdap 04/22/2018,04/22/2015 Tuberculin Skin Test, Unspecified 09/13/2024,,05/26/2024 Social History Tobacco Use Types Packs/Day Years Used Date Smoking Tobacco: Never Passive Smoke Exposure: Never Smokeless Tobacco: Never Tobacco Cessation:Counseling Given: Not Answered Alcohol Use Standard Drinks/Week Comments Not Currently 0 (1 standard drink = 0.6 oz pur e alcohol) Social Connections Answer Date Recorded Do you often feel lonely or isolated from those around you? 0 11/18/2024 Financial Resource Strain Answer Date R ecorded Difficulty of Paying Living Expenses 3 11/18/2024 Difficulty of Paying Living Expenses Not on file 11/18/2024 Food Insecurity Answer Date Recorded Do you worry your food will run out before you are able to buy more? 1 11/18/2024 Transportation Needs Answer Date Record ed Does lack of transportation keep you from medica l appointments? 1 11/18/2024 Does lack of transportation keep you from work, meetings or getting things that you need? 1 11/18/2024 Housing Stability Answer Date Recorded What is your housing situation today? 1 11/18/2024 Utilities Answer Date Recorded Do you have trouble paying f or utilities (for example, heat, electricity, water, phone)? 1 11/18/2024 Comments No Sex and Gender Information Value Date Recorded Sex Assigned at Not on file Legal Sex Female 7:58 AM IVORY POLISHER Gender Identity Not on file Sexual Orientation Not on file Obstetrics History Last Filed Vital Signs Vital Sign Reading Time Taken Comments Blood Pressure 112/60 04/04/2025 11:47 AM CDT Pulse 81 04/04/2025 11:47 AM CDT Temperature 36.6 C (97.8 F) 04/04/2025 11:47 AM CDT Respiratory Rate 18 04/04/2025 11:47 AM CDT Oxygen Saturation 97% 04/04/2025 11:47 AM CDT Inhaled Oxygen Concentration - - Weight 62.6 kg (138 lb) 03/16/2025 12:47 PM CDT Height 152.4 cm (5') 03/16/2025 12:47 PM CDT Body Mass Index 26.95 03/16/2025 12:47 PM CDT Plan of Treatment Upcoming Encounters Date Type Department Care Team (Late st Contact Info) Description 04/11/2025 1:00 AM CDT Home Care Visit [address] [address] Nimco Palacios 04/11/2025 4:00 AM CDT Home Care Visit [address] [address] Rupinder Canchola, RN [address] [place] [address] 04/13/2025 4:00 AM CDT Home Care Visit [facility] [address] [address] Rupinder Canchola RN [address] [place] [address] 04/15/2025 4:00 AM CDT Home Care Visit [address] [address] Rupinder Canchola RN [address] [place] [phone] 04/18/2025 1:00 AM CDT Home Care Visit [facility] [address] [place] [address] Nimco Palacios 04/18/2025 4:00 AM CDT Home Care Visit [address] [address] Rupinder Canchola RN [address] [place] [address] 04/20/2025 1:00 AM CDT Home Care Visit [facility] [address] [place] [address] Nimco Palacios 04/20/2025 4:00 AM CDT Home Care Visit [facility] [address] [place] [address] Rupinder Canchola RN [address] [place] [phone] 04/22/2025 4:00 AM CDT [facility] [address] [place] [address] Rupinder Canchola, RN [address] [place] [address] 04/25/2025 1:00 AM CDT Home Care Visit [address] [address] Nimco Palacios 04/25/2025 4:00 AM CDT Home Care Visit [address] [address] Rupinder Canchola, RN [address] [place] [address] 04/27/2025 4:00 AM CDT Home Care Visit [address] [address] Rupinder Canchola, RN [address] [place] [address] 04/28/2025 1:00 AM CDT Home Care Visit [address] [address] Nimco Palacios 04/29/2025 4:00 AM CDT Home Care Visit [address] [address] Rupinder Canchola, RN [address] [place] [address] 05/02/2025 1:00 AM CDT Home Care Visit [address] [address] Nimco Palacios 05/02/2025 4:00 AM CDT Home Care Visit [address] [address] Rupinder Canchola RN [address] [place] [address] 05/04/2025 4:00 AM CDT Home Care Visit [address] [address] Rupinder Canchola RN [address] [place] [address] 05/05/2025 1:00 AM CDT Home Care Visit [address] [address] Nimco Palacios 05/06/2025 4:00 AM CDT Home Care Visit [address] [address] Rupinder Canchola RN [address] [place] [address] 05/09/2025 1:00 AM CDT Home Care Visit [address] [address] Nimco Palacios 05/09/2025 4:00 AM CDT Home Care Visit [address] [address] Rupinder Canchola RN [address] [place] [address] 05/11/2025 4:00 AM CDT Home Care Visit [facility] [address] [place] [address] Rupinder Canchola, RN [address] [place] [phone] 05/12/2025 1:00 AM CDT Home Care Visit [facility] [address] [address] Philip Nimco T 05/13/2025 4:00 AM CDT Home Care Visit [address] [address] Rupinder Canchola RN [address] [place] [phone] 05/24/2025 10:30 AM CDT Home Visit [address] [address] Tayler Gomez NP [address] [place] [phone] Health Maintenance Due Date Last Done Comments Depression screening for age 12+ 1958 BMI (ht and wt on same day) for age 18+ 1964 Hepatitis C screening for ag e 18-79 1964 Pneumococcal series for age 50+ (1 of 2 - PCV) 1965 Zoster (shingles) series for age 50+ (1 of 2) 1996 DEXA/DXA scan for age 65+ 12/31/2011 Medicare Wellness for age 65+ 12/31/2011 RSV vaccine for adults or (1 - 1-dose 75+ series) 2021 COVID-19 vaccine series ( - season) 2024 Influenza Vaccine (Season Ended) 2025 07/18/2009 Tetanus booster 04/22/2028 04/22/2018, 04/22/2015 Tdap Completed 04/22/2018, 04/22/2015 Hepatitis B series for 19+ Aged Out N o longer eligible based on patient's age to complete this topic Procedures Procedure Name Priority Date/Time Associated Diagnosis Comments HEMOGLOBIN A1C Routine 03/14/2025 2:51 PM CDT Type 2 diabetes mellitus with other skin ulcer (CODE) (HC) BASIC METABOLIC PANEL Routine 03/14/2025 2:51 PM CDT Type 2 diabetes mellitus with other skin ulcer (CODE) (HC) SCAN [facility] 03/04/2025 12:00 AM CDT from Last 3 Months Results * (ABNORMAL) HEMOGLOBIN A1C (03/14/2025 2:51 PM CDT) HEMOGLOBIN A1C 6.8(H) <5.7 % [employer] Carroll Comment: For someone without known diabetes, a hemoglobin A1c value of 6.5% or greater indicates that they may have diabetes and this should be confirmed with a follow-up test. For someone with known diabetes, a value <7% indicates that their diabetes is well controlled and a value greater than or equal to 7% indicates suboptimal control. A1c targets should be individualized based on duration of diabetes, age, comorbid conditions, and other considerations. Currently, no consensus exists regarding use of hemoglobin A1c for diagnosis of diabetes for children. Blood BLOOD SPECIMEN / Unknown 03/14/2025 2:51 PM CDT 03/14/2025 2:51 PM CDT us Wendy Simon MD CHEMISTRY Final Resu lt [employer] [facility] [address] [place] [address], [facility] [address] [place] [phone] * (ABNORMAL) BASIC METABOLIC PANEL (03/14/2025 2:51 PM CDT) Pathologist [facility] [place] GLUCOSE 94 65 - 99 mg/dL ConnollyW dequan Carroll Comment: Fasting reference interval UREA NITROGEN (BUN) 24 7 - 25 mg/dL Epuls odidi Carroll Comment: Verified by repeat analysis. CREATININE 0.34(L) 0.60 - 1.00 mg/dL Epuls odidi Carroll Comment: Verified by repeat analysis. EGFR 105 > OR = 60 mL/min/1.7 3m2 Epuls odidi Carroll BUN/CREATININE RATIO 71(H) 6 - 22 (calc) [facility] SODIUM 140 135 - 146 mmol/L [facility] POTASSIUM 4.1 3.5 - 5.3 mmol/L [facility] CHLORIDE 97(L) 98 - 110 mmol/L [facility] CARBON DIOXIDE 29 20 - 32 mmol/L [facility] ELECTROLYTE BALANCE 14 7 - 17 mmol/L (calc) [facility] CALCIUM 9.1 8.6 - 10.4 mg/dL [facility] Blood BLOOD SPECIMEN / Unknown 03/14/2025 2:51 PM CDT 03/14/2025 2:51 PM CDT Wendy Simon MD CHEMISTRY Final Resu lt [facility] [address] [place] [address], [facility] [address] [place] [address] * SCAN [facility] (03/04/2025 12:00 AM CDT) Scanner OTHER Final Result from Last 3 Months Additional Health Concerns Infection Onset Date Last Indicated MRSA Clearance Comment:Hx MRSA 12/02/13 @ [facility] 03/25/2024 03/25/2024 Insurance HC UCARE MEDICARE PDGM UCARE MEDICARE ADVANTAGE MR Advance Directives Documents on File Type Date Recorded Patient Machine Finisher Expl anation POLST 02/08/2025 Power of Personal Clothing Laundry Aide 03/23/2024 03/23/2024 Healthcare Directive 03/23/2024 024 * DNR (Latest Code Status on File) Date Activated Date Inactivated Comments 03/24/2024 5:28 PM 03/31/2024 4:05 PM Question Answer Comments Code Status Discussion: Reviewed Preferences Care Teams J2Ee Software Engineer Relationship Specialty Start Date End Date Tayler Gomez NP [address] [place] [id number] PCP - General Nurse Practitioner - Adult 11/02/24 [facility] [address] [place] [address] 09/17/24 Tayler Gomez NP [address] [place] [address] [facility] Nurse Practitioner - Adult 11/02/24 Wendy Simon MD [address] [place] [id number] [facility] Family Practice 11/02/24 Cristal Gray [facility] [address] [place] [address] Automotive Sales Professional 11/03/24 Michaela Driver [address] [place], [place] [phone] [facility] Care Guide 11/05/24 Kera Daily LSW [address] [place], [place] [phone] [facility] 11/05/24 Teresa Rincon, RN [address] [place], [place] [phone] [facility] Registered Nurse 03/05/25 Alberto Bhandari, PharmD Pharmacist Medication Management Pharmacology 03/28/25
--- OUTSIDE RECORDS SUMMARY | 2025-04-08 21:29 | XMS_ITS | Clinical Summary ---
Author Organization [facility] Address [address] [place] [address] Care Team Providers Care Home Planning Consultant Salesperson Name Role Phone None Reported, Pcp Primary Care Provider Unavail able Source Comments Patient records contain information from all sites at [facility]. For routine questions regarding patient records, call [phone] during business hours, M-F 8:00 AM - 5:00 PM Central Time. Record requests for emergency care only can be directed to [phone] at any time.[facility] Allergies Active Allergy Reactions Criticality Noted Date Comments Piperacillin Other (see comments) 09/18/2023 Per SNF Per patient, has tolerated Augmentin Tazobactam Other (see comments) 09/18/2023 Per SNF Vancomycin Other (see comments) 09/18/2023 Per SNF Medications multivitamin tablet Take 1 tablet by mouth daily. 3 Active zinc sulfate (ZINCATE) 220 (50 mg zinc) capsule Take 100 mg by mouth daily. 3 Active omeprazole (PriLOSEC) [address] capsule Take 20 mg by mouth 2 (two) times a day before breakfast and dinner. 3 Active gabapentin (NEURONTIN) 300 mg capsule Take 300 mg by mouth 3 (three) times a day. 3 Active Lactobacillus acidophilus 100 million cell capsule Take 1 capsule by mouth daily. In evening 3 Active triamcinolone (KENALOG) 0.1 % ointment Apply 1 Application topically 2 (two) times a day as needed for rash. 3 Active acetaminophen (TYLENOL) 500 mg tablet Take 2 tablets (1,000 mg total) by mouth 3 (three) times a day. 3 Active bisacodyL (DULCOLAX) 10 mg suppository Insert 10 mg into the rectum 2 (two) times a day as needed for constipation. Active ascorbic acid, vitamin C, (VITAMIN C) 1,000 mg tablet Take 1 tablet (1,000 mg total) by mouth daily. 30 tablet 4 Active predniSONE (DELTASONE) 10 mg tablet Take 1 tablet (10 mg total) by mouth daily. Resume usual dose of prednisone 10 mg daily on 10/27/23 30 tablet 4 Active metoprolol succinate (TOPROL-XL) 50 mg 24 hr tablet Take 1 tablet (50 mg total) by mouth daily. Do not crush or chew. 30 tablet 4 Active miconazole (MICATIN) 2 % powder Apply 1 Application topically 2 (two) times a day. Apply to abdominal and groin folds. 43 g 4 Active carboxymethylce llulose (REFRESH PLUS) 0.5 % ophthalmic solution Administer 1 drop into both eyes 3 (three) times a day as needed for dry eyes. 70 each 4 Active furosemide (LASIX) 40 mg tablet Take 1 tablet (40 mg total) by mouth daily. 30 tablet 4 Active ipratropium (ATROVENT) 0.02 % nebulizer solution Inhale 2.5 mL (500 mcg total) by nebulization 3 (three) times a day. 75 mL 4 Active oxyCODONE (ROXICODONE) 15 mg immediate release tabletIndicatio ns:Chronic Pain/Nonacute Pain Take 0.5 tablets (7.5 mg total) by mouth 4 (four) times a day as needed for moderate pain or score 4-6 of 10 or severe pain or score 7-10 of 10 Indication: Chronic Pain/Nonacute Pain. (at least 4 hours apart) 30 tablet 4 Active loperamide (IMODIUM A-D) 2 mg capsule Take 2 mg by mouth 3 (three) times a day before meals. Active DME Bi-level PAPIndications: Obstructive Sleep Apnea Adult DME Order 1 each 4 Active potassium chloride (KLOR-CON M/KDUR) 20 mEq ER tablet Take 1 tablet (20 mEq total) by mouth daily with breakfast. Active Active Problems Problem Noted Date Diagnosed [...] 09/19/2023 Hypertension Essential Primary 09/19/2023 Corticosteroid Treatment Chief Talent Officer Systemic 05/2023 Paraplegia 09/19/2023 Osteoporosis 06/28/2021 Acute [...] 09/19/2023 10/14/2023 Other Acidosis 09/19/2023 11/06/2023 Immunizations Immunization Administration Dates Next Due DT, Pediatric 03/23/1987 [...] = 0.6 oz pur e alcohol) [facility] Utilities Answer Date Recorded In [...] things needed for daily living? No 10/19/2023 Housing Stability Answer Date Recorded What is your living situation today? I have a [facility] place to live 10/19/2023 Comments No Sex and Gender Information Value Date Recorded Sex Assigned at Not on file Legal Sex Female 2:28 PM OLIVER FILTER OPERATOR Gender Identity Not on file Sexual Orientation Not on file Last Filed Vital Signs Vital Sign Reading Time Taken Comments Blood Pressure 110/68 11/28/2023 8:43 AM OLIVER FILTER OPERATOR Pulse 76 11/28/2023 8:43 AM OLIVER FILTER OPERATOR Temperature 36.7 C (98 F) 11/28/2023 8:43 AM OLIVER FILTER OPERATOR Respiratory Rate 18 11/28/2023 8:43 AM OLIVER FILTER OPERATOR Oxygen Saturation 95% 11/28/2023 8:43 AM OLIVER FILTER OPERATOR RA Inhaled Oxygen Concentration - - Weight 58.8 kg (129 lb 9.6 oz) 11/28/2023 8:43 A M OLIVER FILTER OPERATOR Height 152 cm (4' 11.84) 10/19/2023 5:00 AM OLIVER FILTER OPERATOR Body Mass Index 25.44 10/19/2023 5:00 AM OLIVER FILTER OPERATOR Plan of Treatment Health Maintenance Due Date Last Done Comments Hepatitis C Screening 1945 COVID-19 Vaccine (#1) [birth year]31/1950 Pneumococcal vaccine (50+ years) (1 of 2 - PCV) 1965 Zoster Vaccines (1 of 2) 1965 RSV vaccine - (32-36 weeks) or 60+ years (1 - 1-dose 75+ series) 2021 Influenza Vaccine (#1) 2024 9, 07/18/2009, 07/18/2009 Depression Screening (Annual PHQ-2) 10/13/2024 Fall Risk Screen (Annual) 10/13/2024 Creatinine Level (Kidney Function Test) 11/04/2024 11/04/2023, 10/27/2023, 10/21/2023, Additional history exists Potassium Level 11/04/2024 11/04/2023, 10/13, 10/21/2023, Additional history exists Sodium Level 11/04/2024 11/04/2023, 10/13, 10/21/2023, Additional history exists Office Visit for Blood Pressure Check / Re-check 11/28/2024 11/28/2023 DTaP,Tdap,and Td Vaccines (5 - Td or Tdap) 04/22/2028 04/22/2018, 04/22/2015, 04/22/2015, Additional history exists IPV Vaccines Aged Out No longer eligi ble based on patient's age to complete this topic Procedures Procedure Name Priority Date/Time Associated Diagnosis Comments BASIC METABOLIC PANEL, S/P Routine 11/04/2023 6:52 AM OLIVER FILTER OPERATOR Hypokalemia from Last 3 Months or Most Recently Relevant to Health Maintenance Results * (ABNORMAL) Basic Metabolic Panel (11/04/2023 6:52 AM OLIVER FILTER OPERATOR) Potassium, P 4.1 3.6 - 5.2 mmol/L 11/04/2023 8:14 AM OLIVER FILTER OPERATOR NPRG Sodium, P 142 135 - 145 mmol/L 11/04/2023 8:14 AM OLIVER FILTER OPERATOR NPRG Chloride, P 102 98 - 107 mmol/L 11/04/2023 8:14 AM OLIVER FILTER OPERATOR NPRG Bicarbonate, P 30(H) 22 - 29 mmol/L 11/04/2023 8:14 AM OLIVER FILTER OPERATOR NPRG Anion Gap, P 10 7 - 15 11/04/2023 8:14 AM OLIVER FILTER OPERATOR NPRG BUN (Blood Urea Nitrogen), P 21 6 - 21 mg/dL 11/04/2023 8:14 AM OLIVER FILTER OPERATOR NPRG Creatinine 0.28(L) 0.59 - 1.04 mg/dL 11/04/2023 8:14 AM OLIVER FILTER OPERATOR NPRG Estimated GFR (eGFR) >90 >=60 mL/min/BSA 11/04/2023 8:14 AM OLIVER FILTER OPERATOR NPRG Comment: Estimated GFR calculated using the 2020 CKD_EPI creatinine equation. Calcium, Total, P 9.1 8.8 - 10.2 mg/dL 11/04/2023 8:14 AM OLIVER FILTER OPERATOR NPRG Glucose, P 79 70 - 140 mg/dL 11/04/2023 8:14 AM OLIVER FILTER OPERATOR NPRG Blood (Blood, Venous) 11/04/2023 6:52 AM OLIVER FILTER OPERATOR 11/04/2023 7:43 AM OLIVER FILTER OPERATOR us Osiris Otero APRN, C.N.P. LAB BLOOD ADD-ON Fi nal Result [facility] [address] [place] [address], [place] NPRG [facility] [address] [place] [address] from Last 3 Months or Most Recently Relevant to Health Maintenance Insurance [employer] Advance Directives For more information, please contact: [phone] Documents on File Type Date Recorded Patient Link Trainer Teacher Expl anation Advance Directives 09/19/2023 4:06 PM POLS T/MOLST * DNR/DNI (Latest Code Status on File) Date Activated Date Inactivated Comments 10/19/2023 6:50 PM 10/27/2023 4:16 PM * Full Code Date Activated Date Inactivated Comments 10/19/2023 2:13 AM 10/19/2023 6:50 PM Question Answer Comments Full Code: Discussed Care Teams Home Planning Consultant Salesperson Relationship Specialty Start Date End Date None Reported, Pcp PCP - General 08/20/24
--- OUTSIDE RECORDS SUMMARY | 2025-04-08 21:29 | XMS_ITS | Clinical Summary ---
Author Organization [facility] Address [address] [place] [address] Care Team Providers Care Teacher Adult Education Name Role Phone Flo Mckeon MD Primary Care Provider [phone] Allergies Active Allergy Reactions Criticality Noted Date Comments Piperacillin Other (See Comments),Anaphylaxis,R martir,Unknown High 09/18/2023 Tolerated augmentin, ceftriaxone, meropenem Per SNF Per patient, has tolerated Augmentin Sulfamethoxazole Hives High 08/24/2024 Tazobactam Anaphylaxis,Unknown, Oth er (See Comments),Rash High 09/18/2023 Per SNF Trimethoprim Hives High 08/24/2024 Vancomycin Anaphylaxis,Other (S ee Comments) High 09/18/2023 Per SNF Medications lactobacillus rhamnosus, GG, (CULTURELL) capsule Take 1 capsule by mouth daily Active zinc sulfate (ZINCATE) 220 (50 Zn) MG capsule Take 220 mg by mouth every evening Active Ascorbic Acid (VITAMIN C PO) Take 500 mg by mouth every evening Active naproxen sodium (ANAPROX) 220 MG tablet Take 220 mg by mouth daily as needed for moderate pain. Active furosemide (LASIX) 20 MG tablet Take 20 mg by mouth daily. Active predniSONE (DELTASONE) 5 MG tablet Take 10 mg by mouth daily Active polyethylene glycol (MIRALAX) 17 GM/Dose powderIndications :Drug-induced constipation Take 17 g by mouth daily 510 g 4 Active diclofenac (VOLTAREN) 1 % topical gelIndications:Ch ronic pain syndrome Apply 4 g topically 3 times daily left shoulder righ hipand around colostomy area 4 Active metoprolol succinate ER (TOPROL XL) 50 MG 24 hr tablet Take 50 mg by mouth daily. Active sennosides (SENOKOT) 8.6 MG tablet Take 1 tablet by mouth daily. At 1200 Active nystatin (MYCOSTATIN) 279171 UNIT/GM external powder Apply to body folds as needed Active Lidocaine (LIDOCARE) 4 % PatchIndications: Pain Place 1 patch onto the skin Every Fri, Fri, Fri Morning. Apply 1 patch to the lower back every Friday, Friday and Friday evening (Days of wound cares). To prevent lidocaine toxicity, patient should be patch free for 12 hrs daily. 5 patch 4 Active acetaminophen (TYLENOL) 325 MG tabletIndications :Pressure injury of skin, unspecified injury stage, unspecified location Take 3 tablets (975 mg) by mouth every 6 hours. 4 Active oxyCODONE (ROXICODONE) 5 MG tabletIndications :Pressure injury of skin, unspecified injury stage, unspecified location Take 1-2 tablets (5-10 mg) by mouth every 6 hours as needed for moderate pain. 20 tablet 4 Active Active Problems Problem Noted Date Diagnosed Date Infection of scalp 08/25/2024 Chronic indwelling Cristobal catheter 05/14/2024 Chronic osteomyelitis [...] Packs/Day Years Used Date Smoking Tobacco: Never Tobacco Cessation:Counseling Given: Not Answered Alcohol Use Standard Drinks/Week Comments Not Currently 0 (1 standard drink = 0.6 oz pur e alcohol) not for years Adolescent Education Answer Date Record ed Getting School Help Needed Not on file 08/28 Food Insecurity Answer Date Recorded Within the past 12 months, d id you worry that your food would run out before you got money to buy more? No 08/26/2024 Within the past 12 months, d id the food you bought just not last and you didn t have money to get more? No 08/26/2024 Housing Stability Answer Date Recorded Do you have housing? (Miya maravilla is defined as stable permanent housing and does not include staying outside in a car, in a tent, in an abandoned building, in an overnight retirement, or couch-surfing.) Yes 08/26/2024 Are you worried about losing your housing? No 08/26/2024 Financial Resource Strain Answer Date R ecorded Within the past 12 months, h ave you or your family members you live with been unable to get utilities (heat, electricity) when it was really needed? No 08/26/2024 Transportation Needs Answer Date Record ed Within the past 12 months, h as lack of transportation kept you from medical appointments, getting your medicines, non-medical meetings or appointments, work, or from getting things that you need? No 08/26/2024 Interpersonal Safety Answer Date Record ed Do you feel physically and e motionally safe where you currently live? Yes 08/25/2024 Within the past 12 months, h ave you been hit, slapped, kicked or otherwise physically hurt by someone? No 08/25/2024 Within the past 12 months, h ave you been humiliated or emotionally abused in other ways by your partner or ex-partner? No 08/25/2024 Comments No Sex and Gender Information Value Date Recorded Sex Assigned at Not on file Legal Sex Female 5:30 PM CDT Gender Identity Not on file Sexual Orientation Not on file Last Filed Vital Signs Vital Sign Reading Time Taken Comments Blood Pressure 110/50 09/10/2024 9:02 AM LINE FISHER Pulse 73 09/10/2024 11:51 AM LINE FISHER Temperature 36.7 C (98.1 F) 09/10/2024 11:51 AM LINE FISHER Respiratory Rate 17 09/10/2024 5:19 AM LINE FISHER Oxygen Saturation 94% 09/09/2024 8:00 PM LINE FISHER Inhaled Oxygen Concentration - - Weight 66.7 kg (147 lb 0.8 oz) 09/09/2024 4:20 A M LINE FISHER Height 152.4 cm (5') 09/02/2024 8:25 AM LINE FISHER Body Mass Index 28.72 09/02/2024 8:25 AM LINE FISHER Plan of Treatment Health Maintenance Due Date Last Done Comments ADVANCE CARE PLANNING 1945 ANNUAL REVIEW OF HM ORDERS 1945 DEXA 1945 HF ACTION PLAN 1945 LIPID 1945 TSH W/FREE T4 REFLEX 1945 PNEUMOCOCCAL VACCINE 50+ YEARS (1 of 2 - PCV) 1965 ZOSTER VACCINE (1 of 2) 1996 FALL RISK ASSESSMENT 12/31/2011 MEDICARE ANNUAL WELLNESS VISIT 12/31/2011 RSV VACCINE (1 - 1-dose 75+ series) 2021 COVID-19 VACCINE ( season) 2024 PHQ-2 (once per calendar year) 2024 BMP 03/10/2025 09/10/2024, 08/14, 09/08/2024, Additional history exists INFLUENZA VACCINE (Season Ended) 2025 07/18/2009 ALT 09/03/2025 09/03/2024, 08/14, 05/10/2024, Additional history exists CBC 09/13/2025 09/13/2024, 08/14, 09/07/2024, Additional history exists DIABETES SCREENING 09/13/2027 09/13/2024, 1 11/10/2023, 09/09/2024, Additional history exists DTAP/TDAP/TD VACCINE (6 - Td or Tdap) 04/22/2028 04/22/2018, 04/22/2018, 04/22/2015, Additional history exists HEPATITIS C SCREENING Completed 06/28/2021 HPV VACCINE Aged Out No longer eligi ble based on patient's age to complete this topic MENINGITIS VACCINE Aged Out No longer eligible based on patient's age to complete this topic Procedures Procedure Name Priority Date/Time Associated Diagnosis Comments GLUCOSE (OUTREACH) Routine 09/13/2024 8: 34 AM LINE FISHER Other general symptoms and signs Metabolic disorder, unspecified CBC WITH PLATELETS Routine 09/13/2024 8: 34 AM LINE FISHER Other general symptoms and signs Metabolic disorder, unspecified BASIC METABOLIC PANEL Add-On 09/10/2024 5:57 AM LINE FISHER HEPATIC FUNCTION PANEL STAT Add-on 09/03/2024 5:27 AM LINE FISHER from Last 3 Months or Most Recently Relevant to Health Maintenance Results * (ABNORMAL) Glucose (OUTREACH) (09/13/2024 8:34 AM LINE FISHER) Pathologist [facility] Glucose 63(L) 70 - 99 mg/dL 09/13/2024 2:20 PM LINE FISHER [facility] Blood STRUCTURE OF RIGHT UPPER LIMB / Unknown Venipuncture / Unknown 09/13/2024 8:34 AM LINE FISHER 09/13/2024 11:53 AM LINE FISHER us Ever Kelly MD LAB - BLOOD ORDERABLES Final Result [facility] [address] [facility], [address] [place] [address] * (ABNORMAL) CBC with platelets (09/13/2024 8:34 AM LINE FISHER) Pathologist [facility] WBC Count 19.6(H) 4.0 - 11.0 10e3/uL 09/13/2024 2:09 PM LINE FISHER [facility] RBC Count 4.45 3.80 - 5.20 10e6/uL 09/13/2024 2:09 PM LINE FISHER [facility] Hemoglobin 11.8 11.7 - 15.7 g/dL 09/13/2024 2:09 PM LINE FISHER [facility] Hematocrit 39.1 35.0 - 47.0 % 09/13/2024 2:09 PM LINE FISHER [facility] MCV 88 78 - 100 fL 09/13/2024 2:09 PM LINE FISHER [facility] MCH 26.5 26.5 - 33.0 pg 09/13/2024 2:09 PM [facility] MCHC 30.2(L) 31.5 - 36.5 g/dL 09/13/2024 2:09 PM [facility] RDW 18.6(H) 10.0 - 15.0 % 09/13/2024 2:09 PM [facility] Platelet Count 231 150 - 450 10e3/uL 09/13/2024 2:09 PM [facility] Blood STRUCTURE OF RIGHT UPPER LIMB / Unknown Venipuncture / Unknown 09/13/2024 8:34 AM LINE FISHER 09/13/2024 11:53 AM [facility] Ever Kelly MD LAB - BLOOD ORDERABLES Final Result [facility] [address] [facility], [address] [id number] * (ABNORMAL) Basic metabolic panel (09/10/2024 5:57 AM [facility]) Sodium 141 135 - 145 mmol/L 09/10/2024 9:50 AM [facility] Potassium 3.7 3.4 - 5.3 mmol/L 09/10/2024 9:50 AM [facility] Chloride 94(L) 98 - 107 mmol/L 09/10/2024 9:50 AM [facility] Carbon Dioxide (CO2) 36(H) 22 - 29 mmol/L 09/10/2024 9:50 AM [facility] Anion Gap 11 7 - 15 mmol/L 09/10/2024 9:50 AM [facility] Urea Nitrogen 24.6(H) 8.0 - 23.0 mg/dL 09/10/2024 9:50 AM [facility] Creatinine 0.50(L) 0.51 - 0.95 mg/dL 09/10/2024 9:50 AM [facility] GFR Estimate >90 >60 mL/min/1.7 3m2 09/10/2024 9:50 AM [facility] Comment:eGFR calculated usin 2020 CKD-EPI equation. Calcium 8.7(L) 8.8 - 10.4 mg/dL 09/10/2024 9:50 AM [facility] Comment:Reference intervals for this test were updated on 04/27/2024 to reflect our healthy population more accurately. There may be differences in the flagging of prior results with similar values performed with this method. Those prior results can be interpreted in the context of the updated reference intervals. Glucose 86 70 - 99 mg/dL 09/10/2024 9:50 AM [facility] Blood STRUCTURE OF LEFT UPPER LIMB / Unknown Venipuncture / Unknown 09/10/2024 5:57 AM LINE FISHER 09/10/2024 6:14 AM LINE FISHER Sandy Ramirez MD LAB - BLOOD ORDERABLES Final Result LABORATORY [facility] [address], [address] [place] [address], [facility] [phone] * (ABNORMAL) Hepatic panel (09/03/2024 5:27 AM LINE FISHER) Pathologist [facility] Protein Total 5.0(L) 6.4 - 8.3 g/dL 09/03/2024 2:56 PM [facility] Albumin 2.8(L) 3.5 - 5.2 g/dL 09/03/2024 2:56 PM [facility] Bilirubin Total 0.2 <=1.2 mg/dL 09/03/2024 2:56 PM [facility] Alkaline Phosphatase 268(H) 40 - 150 U/L 09/03/2024 2:56 PM [facility] AST 40 0 - 45 U/L 09/03/2024 2:56 PM [facility] ALT 37 0 - 50 U/L 09/03/2024 2:56 PM [facility] Bilirubin Direct <0.20 0.00 - 0.30 mg/dL 09/03/2024 2:56 PM [facility] Blood STRUCTURE OF LEFT HAND / Unknown Venipuncture / Unknown 09/03/2024 5:27 AM LINE FISHER 09/03/2024 5:40 AM LINE FISHER Lisa Bell APRN BUFFER COPPER LAB - BLOOD ORDERABLES F inal Result LABORATORY [facility] [address], [address] [place] [address], [facility] [phone] from Last 3 Months or Most Recently Relevant to Health Maintenance Additional Health Concerns Infection Onset Date 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 Intubation to prevent or reverse respiratory instability may be performed. Question Answer Comments Code status determined by: Discussion with patie nt/ legal decision maker * No CPR- Pre-arrest intubation OK Date Activated Date Inactivated Comments 05/18/2024 8:39 [...] Discussion with patie nt/ legal decision maker Care Teams Teacher Adult Education Relationship Specialty Start Date End Date Flo Mckeon MD [facility] [place] [address] PCP - General Family Medicine 03/09/24
--- NOTE | 2025-04-08 21:35 | CRLHL7_ITS ---
For Patients: As a result of the Cures Act, medical imaging exams and procedure reports are released immediately into your electronic medical record. You may view this report before your referring provider. If you have questions, please contact your health care provider. INDICATION: Sepsis. TECHNIQUE: Chest 1 views. COMPARISON: March 21, 2024. FINDINGS: Cardiovascular and mediastinum: Stable heart size and vasculature. Lungs and pleural spaces: Low lung volumes. No sign of infiltrate or mass. No sign of pleural effusion. No pneumothorax. Bones and soft tissues: Spinal stabilization hardware. IMPRESSION: Low lung volumes. No acute or significant findings. No change. Dictated by Saeid Deras MD @ 04/08/2025 10:18:51 PM (Electronically Signed)
--- OUTSIDE RECORDS SUMMARY | 2025-04-08 21:46 | XMS_ITS | CCD ---
Author Name Interface, [id number] lity Address [address] [place] [address] [facility] Address [address] [place] [address] Reason for Visit Diagnostic Results Date Type Test Units Lower Limit Upper Limit Result Flag Comments Status Ordered By Specimen Source Lab Address 09/10 [facility] other lab See attache lopez Social History Date Name Value Sex Female
--- OUTSIDE RECORDS SUMMARY | 2025-04-08 21:46 | XMS_ITS | CCD ---
Author Name Interface, [id number] lity Address [address] [place] [address] [facility] Address [address] [place] [address] Reason for Visit Diagnostic Results Date Type Test Units Lower Limit Upper Limit Result Flag Comments Status Ordered By Specimen Source Lab Address 09/10 [facility] other lab See attache lopez Social History Date Name Value Sex Female
--- NOTE | 2025-04-08 21:56 | CRLHL7_ITS ---
For Patients: As a result of the Century Cures Act, medical imaging exams and procedure reports are released immediately into your electronic medical record. You may view this report before your referring provider. If you have questions, please contact your health care provider. INDICATION: Fevers TECHNIQUE: CT chest, abdomen and pelvis acquired with 74 milliliters Isovue 370 IV contrast. COMPARISON: None. FINDINGS: CHEST: Cardiovascular structures: Heart size is normal. Trace coronary artery calcifications. Thoracic aorta and main pulmonary artery are normal in caliber. Mediastinum and farooq: No mass or adenopathy. Lungs and pleura: Bibasilar peribronchial thickening with streaky consolidation. No pleural effusions, or pneumothoraces. Chest wall and axilla: No mass or adenopathy. Bones: Decreased osseous mineralization. Posterior thoracolumbar hardware fixation. Scoliotic curvature. ABDOMEN AND PELVIS: Liver: Unremarkable. Gallbladder and bile ducts: Prior cholecystectomy. Pancreas: Fatty atrophy. Spleen: Unremarkable. Adrenal glands: Unremarkable. Kidneys: 13 millimeter nonobstructing stone in the right renal pelvis. Additional smaller nonobstructing stone. No hydronephrosis. Tiny cortical hypodensities, too small to characterize. GI tract: Partial bowel obstruction with left lower quadrant ostomy. No bowel obstruction. Colonic diverticulosis without diverticulitis. Appendix not definitely seen. Vascular structures: Aortoiliac arterial calcifications. Lymph nodes: Unremarkable. Miscellaneous: Unremarkable. No free air or significant free fluid. Pelvic Organs: Hysterectomy. Mildly distended bladder with circumferential wall thickening and Cristobal catheter in place.. Bones: Decreased osseous mineralization. Posterior thoracolumbar hardware fixation. Scoliotic curvature. Persistent sclerotic changes involving the right ischial tuberosity consistent with history of chronic osteomyelitis. Persistent irregularity of the sacrum consistent with history of chronic osteomyelitis.. IMPRESSION: Mild bibasilar peribronchial thickening with streaky consolidation, possibly bronchitis or aspiration. No focal consolidations. Persistent sclerotic changes involving the right ischial tuberosity and sacrum consistent with history of chronic osteomyelitis. Superimposed acute osteomyelitis is not excluded. Persistent 13 millimeter nonobstructing stone in the right renal pelvis. Additional adjacent smaller nonobstructing stone. Colonic diverticulosis without diverticulitis. Mildly distended bladder with circumferential wall thickening. Recommend correlation with urinalysis if urinary tract infection is of concern. Please note that all CT scans at this facility use dose modulation, iterative reconstruction, and/or weight-based dosing when appropriate to reduce radiation dose to as low as reasonably achievable. Dictated by Saeid Deras MD @ 04/08/2025 11:33:38 PM (Electronically Signed)
--- NOTE | 2025-04-08 21:57 | ED.FEVER ---
HPI - Fever General Date Seen: 04/08/25 <Daniel Parker DO - Last Filed: 04/11/25 00:51> Chief Complaint: Fever <Daniel Parker DO - Last Filed: 04/11/25 00:51> Stated Complaint: fever <Daniel Parker DO - Last Filed: 04/11/25 00:51> Time Seen by Provider: 04/08/25 21:30 <Daniel Parker DO - Last Filed: 04/11/25 00:51> Source: EMS <Daniel Parker DO - Last Filed: 04/11/25 00:51> Mode of arrival: EMS <Daniel Parker DO - Last Filed: 04/11/25 00:51> Limitations: no limitations <Daniel Parker DO - Last Filed: 04/11/25 00:51> History of Present Illness HPI Narrative: Patient is a 79-year-old female presenting via EMS for fever. Per EMS report the patient has been complaining of abdominal pain. Most specifically right lower quadrant. Can answer some occasional questions. Has been having a fever with a high of 101 since 18:00. She does have a Cristobal in ostomy bag. On scene O2 his mid 80s but sats quickly improved with oxygen. She is not on home O2. Patient is having difficulty answering my questions and will occasionally answer yes or no. She does endorse abdominal pain. At patient's baseline she is more talkative. She is a bed bound paraplegic. Family arrived in the states everything was normal all day up until this evening. She had friends over and known was sick. Patient was acting at her normal. She then started complaining about the abdominal pain and spiked a fever. She is now appearing to be altered mentally according to family. <Daniel Parker DO - Last Filed: 04/11/25 00:51> Related Data Home Medications: Home Medications ?Medication ?Instructions ?Recorded ?Confirmed multivitamin with folic acid 400 1 tab PO DAILY 03/22/24 04/09/25 mcg tablet (Daily-Charles (with folic acid)) Lactobacillus rhamnosus GG PO .QD 07/07/24 08/24/24 [Culturelle] acetaminophen 650 mg 1,300 mg PO Q12H PRN 07/07/24 04/09/25 tablet,extended release diclofenac sodium 1 % topical gel 4 g topical TID PRN 07/07/24 04/09/25 lidocaine HCl 4 % topical patch 3 patch topical Q24H 07/07/24 04/09/25 pregabalin 75 mg capsule 75 mg PO TID 07/07/24 04/09/25 sennosides 8.6 mg tablet 8.6 - 17.2 mg PO BID PRN 07/07/24 04/09/25 triamcinolone acetonide 0.1 % 1 applic topical BID PRN 07/07/24 04/09/25 topical cream naproxen sodium 220 mg capsule 220 mg PO QDAY PRN 08/24/24 04/09/25 polyethylene glycol 3350 17 gram 17 g PO QDAY 08/24/24 04/09/25 oral powder packet (Miralax) gabapentin 300 mg capsule 300 mg PO 3XD 04/09/25 04/09/25 ketoconazole 2 % topical cream applic topical BID 04/09/25 Previous Rx's ?Medication ?Instructions ?Recorded ascorbic acid (vitamin C) 500 mg 500 mg PO DAILY #30 tabs 12/13/23 tablet (Vitamin C) loperamide 2 mg capsule 2 mg PO TID PRN loose stool #30 12/13/23 caps miconazole nitrate 2 % topical 1 applic topical BID PRN #85 grams 12/13/23 powder zinc sulfate 50 mg zinc (220 mg) 50 mg PO DAILY #30 caps 12/13/23 capsule furosemide 20 mg tablet 20 mg PO QAM #90 tabs 08/24/24 metoprolol succinate 50 mg 50 mg PO QDAY #90 tabs 08/24/24 tablet,extended release 24 hr hydromorphone 2 mg tablet 2 mg PO Q6H PRN pain #90 tabs 10/19/24 (Dilaudid) <Daniel Parker, DO - Last Filed: 04/11/25 00:51> Allergies/Adverse Reactions: Allergies Allergy/AdvReac Type Severity Reaction Status Date / Time piperacillin Allergy Intermediate Rash Verified 04/08/25 23:17 sulfamethoxazole (From Allergy Intermediate Hives Verified 04/08/25 23:17 Bactrim) tazobactam Allergy Intermediate Rash Verified 04/08/25 23:17 trimethoprim (From Bactrim) Allergy Intermediate Hives Verified 04/08/25 23:17 vancomycin Allergy Unknown Anaphylactic Verified 04/08/25 23:17 shock with this medication. Also assisted demario <Daniel Parker DO - Last Filed: 04/11/25 00:51> Review of Systems Narrative Difficult to get ROS due to medical condition <Daniel Parker DO - Last Filed: 04/11/25 00:51> [facility] Medical History: Medical History (Updated 04/10/25 @ 12:13 by Lucía Espinoza MD) Lower extremity edema ?R60.0 - Localized edema (ICD-10) Scalp abscess ?L02.811 - Cutaneous abscess of head [any part, except face] (ICD-10) HTN (hypertension) ?I10 - Essential (primary) hypertension (ICD-10) Health care directive on file ?Z78.9 - Other specified health status (ICD-10) Pressure ulcer of coccygeal region, stage 4 ?L89.154 - Pressure ulcer of sacral region, stage 4 (ICD-10) UTI (urinary tract infection) ?N39.0 - Urinary tract infection, site not specified (ICD-10) Hypoalbuminemia due to protein-calorie malnutrition ?E88.09 - Other disorders of plasma-protein metabolism, not elsewhere classified (ICD-10) ?E46 - Unspecified protein-calorie malnutrition (ICD-10) 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, stage 4 ?L89.44 - Pressure ulcer of contiguous site of back, buttock and hip, stage 4 (ICD-10) Pressure ulcer ?L89.90 - Pressure ulcer of unspecified site, unspecified stage (ICD-10) Osteomyelitis ?M86.9 - Osteomyelitis, unspecified (ICD-10) Anemia ?D64.9 - Anemia, unspecified (ICD-10) Diarrhea ?R19.7 - Diarrhea, unspecified (ICD-10) Intravenous infiltration ?T80.1XXA - Vascular complications following infusion, transfusion and therapeutic injection, initial encounter (ICD-10) Neurogenic bladder ?N31.9 - Neuromuscular dysfunction of bladder, unspecified (ICD-10) Chronic, continuous use of opioids ?F11.90 - Opioid use, unspecified, uncomplicated (ICD-10) Rheumatoid arthritis ?M06.9 - Rheumatoid arthritis, unspecified (ICD-10) Cristobal catheter in place ?Z97.8 - Presence of other specified devices (ICD-10) Sleep apnea ?G47.30 - Sleep apnea, unspecified (ICD-10) Paraplegia ?G82.20 - Paraplegia, unspecified (ICD-10) Acute on chronic anemia ?D64.9 - Anemia, unspecified (ICD-10) Paraplegia ?G82.20 - Paraplegia, unspecified (ICD-10) Chronic pain ?G89.29 - Other chronic pain (ICD-10) Tubular adenoma of colon ?D12.6 - Benign neoplasm of colon, unspecified (ICD-10) 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 - Acute transverse myelitis in demyelinating disease of central nervous system (ICD-10) Septic shock ?A41.9 - Sepsis, unspecified organism (ICD-10) ?R65.21 - Severe sepsis with septic shock (ICD-10) Recurrent urinary tract infection ?N39.0 - Urinary tract infection, site not specified (ICD-10) Osteoporosis ?M81.0 - Age-related osteoporosis without current pathological fracture (ICD-10) History of methicillin resistant Staphylococcus aureus infection ?Z86.14 - Personal history of Methicillin resistant Staphylococcus aureus infection (ICD-10) <Daniel Parker DO - Last Filed: 04/11/25 00:51> Surgical History: Surgical History (Updated 04/09/25 @ 08:21 by Lucía Espinoza MD) Colostomy status ?Z93.3 - Colostomy status (ICD-10) Status post debridement ?Z98.890 - Other specified postprocedural states (ICD-10) <Daniel Parker DO - Last Filed: 04/11/25 00:51> Social History: Social History Narrative: Mary has recently been living at [facility], daughter Elvi (MDM if needed) is hoping to bring her home with patient registration manager caregiving. has cognitive impairment. At this time (12/08/23), she is requesting DNR/DNI status. Nonsmoker, no ETOH use. What is your current living situation?: I presently have a place to live Problems where you live: no known problems Problems where you live details: n/a In the past 12 months, utilities in danger of being shut off: no In past 12 months, lack of transportation kept you from medical appts, meetings, work, or getting things needed for daily living: no In the past 12 mos, have been you worried that your food would run out before you had money to buy more?: never true In the past 12 mos, the food you bought just didn't last and you didn't have money to buy more?: never true Highest level of school completed/degree received: Bachelor's degree Smoking Status: Never smoker Do you use any of these nicotine containing products: None Second hand tobacco smoke exposure: No How often do you have a drink containing alcohol: never How often do you have six or more drinks on one occasion: Never AUDIT-C Alcohol total score: 0 Non-prescribed substance use: denies use Caffeine: Yes (1 cup coffee/day) How often does anyone, including family, friends and others, physically hurt you: never How often does anyone, including family, friends and others, insult or talk down to you: never How often does anyone, including family, friends and others, threaten you with harm: never How often does anyone, including family, friends and others, scream or curse at you: never service: No <Daniel Parker DO - Last Filed: 04/11/25 00:51> Exam Narrative Exam Narrative: Const: Paraplegic with Cristobal and ostomy Eyes: PERRL, no conjunctival injection, and symmetrical lids HENT: Atraumatic external nose and ears. Moist mucous membranes. Neck: Symmetric, trachea midline, No thyromegaly. CVS: Tachycardic, No murmurs or gallops. Peripheral pulses 2+ and equal in all extremities RESP: Tachypneic. Clear to auscultation bilaterally. GI: Lower abdominal tenderness,Nondistended, No rebound or guarding. MSK:Extremities w/o deformity, Normal Active ROM Skin: 2 cm x 2 cm stage III pressure ulcer Neuro: Normal Muscle tone, No focal neurological deficits. Psych: Awake, Alert <Daniel Parker DO - Last Filed: 04/11/25 00:51> Const Vital Signs, click to edit/add: Vital Signs - 24 hr 04/08/25 21:28 04/08/25 21:28 04/08/25 21:29 Temperature 102.0 F H Pulse Rate Pulse Rate [Left Pulse Oximeter] 128 H Respiratory Rate 20 22 Blood Pressure Blood Pressure [Left Upper Arm] 188/85 H Pulse Oximetry 96 86 L 88 Oxygen Delivery Method Room Air Room Air 04/08/25 22:22 04/08/25 22:38 04/08/25 22:40 Temperature 98.2 F Pulse Rate 128 H 129 H Pulse Rate [Left Pulse Oximeter] Respiratory Rate Blood Pressure Blood Pressure [Left Upper Arm] Pulse Oximetry 97 97 Oxygen Delivery Method 04/08/25 23:13 04/08/25 23:14 04/08/25 23:15 Temperature Pulse Rate 126 H 125 H 125 H Pulse Rate [Left Pulse Oximeter] Respiratory Rate 20 Blood Pressure 128/42 L Blood Pressure [Left Upper Arm] Pulse Oximetry 90 93 94 Oxygen Delivery Method 04/08/25 23:30 04/08/25 23:31 04/08/25 23:32 Temperature Pulse Rate 124 H 123 H 122 H Pulse Rate [Left Pulse Oximeter] Respiratory Rate Blood Pressure 111/39 L Blood Pressure [Left Upper Arm] Pulse Oximetry 97 98 97 Oxygen Delivery Method 04/08/25 23:45 04/09/25 00:00 04/09/25 00:02 Temperature Pulse Rate 118 H 112 H 112 H Pulse Rate [Left Pulse Oximeter] Respiratory Rate Blood Pressure 83/37 L Blood Pressure [Left Upper Arm] Pulse Oximetry 97 98 97 Oxygen Delivery Method 04/09/25 00:02 04/09/25 00:02 04/09/25 00:03 Temperature Pulse Rate 112 H 112 H 111 H Pulse Rate [Left Pulse Oximeter] Respiratory Rate Blood Pressure 83/37 L 83/37 L Blood Pressure [Left Upper Arm] Pulse Oximetry 97 97 98 Oxygen Delivery Method 04/09/25 00:15 04/09/25 00:17 04/09/25 00:22 Temperature Pulse Rate 109 H 111 H 107 H Pulse Rate [Left Pulse Oximeter] Respiratory Rate Blood Pressure 83/35 L 78/34 L Blood Pressure [Left Upper Arm] Pulse Oximetry 98 97 97 Oxygen Delivery Method 04/09/25 00:29 04/09/25 00:30 04/09/25 00:31 Temperature Pulse Rate 111 H 108 H 110 H Pulse Rate [Left Pulse Oximeter] Respiratory Rate Blood Pressure 78/29 L 78/41 L Blood Pressure [Left Upper Arm] Pulse Oximetry 96 96 96 Oxygen Delivery Method 04/09/25 00:45 04/09/25 00:46 04/09/25 01:00 Temperature Pulse Rate 104 H 105 H 102 H Pulse Rate [Left Pulse Oximeter] Respiratory Rate Blood Pressure 73/63 L Blood Pressure [Left Upper Arm] Pulse Oximetry 98 97 98 Oxygen Delivery Method 04/09/25 01:02 04/09/25 01:02 04/09/25 01:03 Temperature Pulse Rate 98 98 99 Pulse Rate [Left Pulse Oximeter] Respiratory Rate Blood Pressure 80/38 L 80/38 L Blood Pressure [Left Upper Arm] Pulse Oximetry 98 98 97 Oxygen Delivery Method 04/09/25 01:06 04/09/25 01:10 04/09/25 01:16 Temperature Pulse Rate 95 92 94 Pulse Rate [Left Pulse Oximeter] Respiratory Rate Blood Pressure 80/37 L 81/34 L Blood Pressure [Left Upper Arm] Pulse Oximetry 96 97 98 Oxygen Delivery Method 04/09/25 01:20 04/09/25 01:30 04/09/25 01:32 Temperature Pulse Rate 93 96 98 Pulse Rate [Left Pulse Oximeter] Respiratory Rate Blood Pressure 83/36 L Blood Pressure [Left Upper Arm] Pulse Oximetry 98 97 97 Oxygen Delivery Method 04/09/25 01:39 04/09/25 01:45 04/09/25 01:46 Temperature Pulse Rate 91 93 94 Pulse Rate [Left Pulse Oximeter] Respiratory Rate Blood Pressure 77/34 L 81/36 L Blood Pressure [Left Upper Arm] Pulse Oximetry 98 97 96 Oxygen Delivery Method 04/09/25 02:00 04/09/25 02:01 04/09/25 02:15 Temperature Pulse Rate 93 92 92 Pulse Rate [Left Pulse Oximeter] Respiratory Rate Blood Pressure 76/44 L Blood Pressure [Left Upper Arm] Pulse Oximetry 96 96 98 Oxygen Delivery Method 04/09/25 02:16 04/09/25 02:17 04/09/25 02:30 Temperature Pulse Rate 92 92 91 Pulse Rate [Left Pulse Oximeter] Respiratory Rate Blood Pressure 79/36 L Blood Pressure [Left Upper Arm] Pulse Oximetry 98 98 97 Oxygen Delivery Method 04/09/25 02:32 04/09/25 02:45 04/09/25 02:46 Temperature Pulse Rate 91 92 92 Pulse Rate [Left Pulse Oximeter] Respiratory Rate Blood Pressure 85/36 L 86/38 L Blood Pressure [Left Upper Arm] Pulse Oximetry 98 97 98 Oxygen Delivery Method 04/09/25 03:00 04/09/25 03:01 04/09/25 03:02 Temperature Pulse Rate 95 95 94 Pulse Rate [Left Pulse Oximeter] Respiratory Rate Blood Pressure 84/40 L Blood Pressure [Left Upper Arm] Pulse Oximetry 97 96 97 Oxygen Delivery Method 04/09/25 03:15 04/09/25 03:17 04/09/25 03:18 Temperature Pulse Rate 94 96 91 Pulse Rate [Left Pulse Oximeter] Respiratory Rate Blood Pressure 76/33 L Blood Pressure [Left Upper Arm] Pulse Oximetry 99 98 98 Oxygen Delivery Method 04/09/25 03:20 04/09/25 03:25 04/09/25 03:30 Temperature Pulse Rate 91 86 89 Pulse Rate [Left Pulse Oximeter] Respiratory Rate Blood Pressure Blood Pressure [Left Upper Arm] Pulse Oximetry 99 98 99 Oxygen Delivery Method 04/09/25 03:32 04/09/25 03:34 04/09/25 03:35 Temperature Pulse Rate 88 86 87 Pulse Rate [Left Pulse Oximeter] Respiratory Rate Blood Pressure 80/34 L 74/35 L Blood Pressure [Left Upper Arm] Pulse Oximetry 99 98 98 Oxygen Delivery Method 04/09/25 03:37 04/09/25 03:41 04/09/25 03:45 Temperature Pulse Rate 87 86 85 Pulse Rate [Left Pulse Oximeter] Respiratory Rate Blood Pressure 76/32 L 72/32 L Blood Pressure [Left Upper Arm] Pulse Oximetry 98 99 97 Oxygen Delivery Method 04/09/25 03:46 04/09/25 03:51 04/09/25 03:56 Temperature Pulse Rate 86 84 86 Pulse Rate [Left Pulse Oximeter] Respiratory Rate Blood Pressure 112/48 L 122/47 L 118/48 L Blood Pressure [Left Upper Arm] Pulse Oximetry 97 99 99 Oxygen Delivery Method 04/09/25 03:57 04/09/25 04:00 04/09/25 04:01 Temperature Pulse Rate 88 88 87 Pulse Rate [Left Pulse Oximeter] Respiratory Rate Blood Pressure 119/49 L Blood Pressure [Left Upper Arm] Pulse Oximetry 97 98 98 Oxygen Delivery Method <Daniel Parker DO - Last Filed: 04/11/25 00:51> Vital Signs - 24 hr 06/27/25 21:28 04/08/25 21:28 04/08/25 21:29 Temperature 102.0 F H Pulse Rate Pulse Rate [Left Pulse Oximeter] 128 H Respiratory Rate 20 22 Blood Pressure Blood Pressure [Left Upper Arm] 188/85 H Pulse Oximetry 96 86 L 88 Oxygen Delivery Method Room Air Room Air 04/08/25 22:22 04/08/25 22:38 04/08/25 22:40 Temperature 98.2 F Pulse Rate 128 H 129 H Pulse Rate [Left Pulse Oximeter] Respiratory Rate Blood Pressure Blood Pressure [Left Upper Arm] Pulse Oximetry 97 97 Oxygen Delivery Method 04/08/25 23:13 04/08/25 23:14 04/08/25 23:15 Temperature Pulse Rate 126 H 125 H 125 H Pulse Rate [Left Pulse Oximeter] Respiratory Rate 20 Blood Pressure 128/42 L Blood Pressure [Left Upper Arm] Pulse Oximetry 90 93 94 Oxygen Delivery Method 04/08/25 23:30 04/08/25 23:31 04/08/25 23:32 Temperature Pulse Rate 124 H 123 H 122 H Pulse Rate [Left Pulse Oximeter] Respiratory Rate Blood Pressure 111/39 L Blood Pressure [Left Upper Arm] Pulse Oximetry 97 98 97 Oxygen Delivery Method 04/08/25 23:45 04/09/25 00:00 04/09/25 00:02 Temperature Pulse Rate 118 H 112 H 112 H Pulse Rate [Left Pulse Oximeter] Respiratory Rate Blood Pressure 83/37 L Blood Pressure [Left Upper Arm] Pulse Oximetry 97 98 97 Oxygen Delivery Method 04/09/25 00:02 04/09/25 00:02 04/09/25 00:03 Temperature Pulse Rate 112 H 112 H 111 H Pulse Rate [Left Pulse Oximeter] Respiratory Rate Blood Pressure 83/37 L 83/37 L Blood Pressure [Left Upper Arm] Pulse Oximetry 97 97 98 Oxygen Delivery Method 04/09/25 00:15 04/09/25 00:17 04/09/25 00:22 Temperature Pulse Rate 109 H 111 H 107 H Pulse Rate [Left Pulse Oximeter] Respiratory Rate Blood Pressure 83/35 L 78/34 L Blood Pressure [Left Upper Arm] Pulse Oximetry 98 97 97 Oxygen Delivery Method 04/09/25 00:29 04/09/25 00:30 04/09/25 00:31 Temperature Pulse Rate 111 H 108 H 110 H Pulse Rate [Left Pulse Oximeter] Respiratory Rate Blood Pressure 78/29 L 78/41 L Blood Pressure [Left Upper Arm] Pulse Oximetry 96 96 96 Oxygen Delivery Method 04/09/25 00:45 04/09/25 00:46 04/09/25 01:00 Temperature Pulse Rate 104 H 105 H 102 H Pulse Rate [Left Pulse Oximeter] Respiratory Rate Blood Pressure 73/63 L Blood Pressure [Left Upper Arm] Pulse Oximetry 98 97 98 Oxygen Delivery Method 04/09/25 01:02 04/09/25 01:02 04/09/25 01:03 Temperature Pulse Rate 98 98 99 Pulse Rate [Left Pulse Oximeter] Respiratory Rate Blood Pressure 80/38 L 80/38 L Blood Pressure [Left Upper Arm] Pulse Oximetry 98 98 97 Oxygen Delivery Method 04/09/25 01:06 04/09/25 01:10 04/09/25 01:16 Temperature Pulse Rate 95 92 94 Pulse Rate [Left Pulse Oximeter] Respiratory Rate Blood Pressure 80/37 L 81/34 L Blood Pressure [Left Upper Arm] Pulse Oximetry 96 97 98 Oxygen Delivery Method 04/09/25 01:20 04/09/25 01:30 04/09/25 01:32 Temperature Pulse Rate 93 96 98 Pulse Rate [Left Pulse Oximeter] Respiratory Rate Blood Pressure 83/36 L Blood Pressure [Left Upper Arm] Pulse Oximetry 98 97 97 Oxygen Delivery Method 04/09/25 01:39 04/09/25 01:45 04/09/25 01:46 Temperature Pulse Rate 91 93 94 Pulse Rate [Left Pulse Oximeter] Respiratory Rate Blood Pressure 77/34 L 81/36 L Blood Pressure [Left Upper Arm] Pulse Oximetry 98 97 96 Oxygen Delivery Method 04/09/25 02:00 04/09/25 02:01 04/09/25 02:15 Temperature Pulse Rate 93 92 92 Pulse Rate [Left Pulse Oximeter] Respiratory Rate Blood Pressure 76/44 L Blood Pressure [Left Upper Arm] Pulse Oximetry 96 96 98 Oxygen Delivery Method 04/09/25 02:16 04/09/25 02:17 04/09/25 02:30 Temperature Pulse Rate 92 92 91 Pulse Rate [Left Pulse Oximeter] Respiratory Rate Blood Pressure 79/36 L Blood Pressure [Left Upper Arm] Pulse Oximetry 98 98 97 Oxygen Delivery Method 04/09/25 02:32 04/09/25 02:45 04/09/25 02:46 Temperature Pulse Rate 91 92 92 Pulse Rate [Left Pulse Oximeter] Respiratory Rate Blood Pressure 85/36 L 86/38 L Blood Pressure [Left Upper Arm] Pulse Oximetry 98 97 98 Oxygen Delivery Method 04/09/25 03:00 04/09/25 03:01 04/09/25 03:02 Temperature Pulse Rate 95 95 94 Pulse Rate [Left Pulse Oximeter] Respiratory Rate Blood Pressure 84/40 L Blood Pressure [Left Upper Arm] Pulse Oximetry 97 96 97 Oxygen Delivery Method 04/09/25 03:15 04/09/25 03:17 04/09/25 03:18 Temperature Pulse Rate 94 96 91 Pulse Rate [Left Pulse Oximeter] Respiratory Rate Blood Pressure 76/33 L Blood Pressure [Left Upper Arm] Pulse Oximetry 99 98 98 Oxygen Delivery Method 04/09/25 03:20 04/09/25 03:25 04/09/25 03:30 Temperature Pulse Rate 91 86 89 Pulse Rate [Left Pulse Oximeter] Respiratory Rate Blood Pressure Blood Pressure [Left Upper Arm] Pulse Oximetry 99 98 99 Oxygen Delivery Method 04/09/25 03:32 04/09/25 03:34 04/09/25 03:35 Temperature Pulse Rate 88 86 87 Pulse Rate [Left Pulse Oximeter] Respiratory Rate Blood Pressure 80/34 L 74/35 L Blood Pressure [Left Upper Arm] Pulse Oximetry 99 98 98 Oxygen Delivery Method 04/09/25 03:37 04/09/25 03:41 04/09/25 03:45 Temperature Pulse Rate 87 86 85 Pulse Rate [Left Pulse Oximeter] Respiratory Rate Blood Pressure 76/32 L 72/32 L Blood Pressure [Left Upper Arm] Pulse Oximetry 98 99 97 Oxygen Delivery Method 04/09/25 03:46 04/09/25 03:51 04/09/25 03:56 Temperature Pulse Rate 86 84 86 Pulse Rate [Left Pulse Oximeter] Respiratory Rate Blood Pressure 112/48 L 122/47 L 118/48 L Blood Pressure [Left Upper Arm] Pulse Oximetry 97 99 99 Oxygen Delivery Method 04/09/25 03:57 04/09/25 04:00 04/09/25 04:01 Temperature Pulse Rate 88 88 87 Pulse Rate [Left Pulse Oximeter] Respiratory Rate Blood Pressure 119/49 L Blood Pressure [Left Upper Arm] Pulse Oximetry 97 98 98 Oxygen Delivery Method <Santy G Ward, MD - Last Filed: 04/09/25 04:10> Course Course ED Course: Twelve 40-signed out to Dr. Ward at shift change. I re-evaluated the patient. She was awake but quiet. Blood pressure 83/36. Mentating normally. Daughter at bedside. She is receiving her 2 L of IV fluids and the g of Rocephin ordered by Dr. Parker. Based on her low blood pressure, I am concerned about worsening sepsis and developing septic shock. She is complaining of nausea-ordered Zofran. Will broaden antibiotics. Had Levaquin to cover for pneumonia. Flagyl to cover pot for possible anaerobes. She has a vancomycin severe allergy. <Santy Ward MD - Last Filed: 04/09/25 04:10> Reevaluation(s) Reevaluation #1: Dr. Ward did multiple rechecks and bedside rechecks for this patient. She had good mental status, responding to questions appropriately and conversant. Following commands appropriately. Fairly normal skin perfusion with normal cap refill. However blood pressure. Currently remained in the 80s/30s despite completion of a 30 mL/kg IV fluid bolus. Broadened antibiotic coverage with daptomycin to cover for possible MRSA. Discussed with tele hospitalist to update the physician about the patient's condition. Source for sepsis is presumed to be urine at this time. She does have a chronic indwelling Cristobal catheter and does have abnormal urinalysis. She also has a right sided decubitus ulcer that has been open in the past but the daughter and the patient report is healing. There may be some signs of irritation inflammation in that area on her CT scan. Need coverage for skin gisel as well. However, Dr. Parker evaluated the area and did not feel it was actively infected. CT scan also shows possible pneumonia or pneumonitis. Vision is not have a cough, but is requiring oxygen via nasal cannula. Would need coverage for respiratory pathogens as well. Blood cultures pending. Discussed with the patient and her daughter about and need for vasopressor infusion like norepinephrine. If so would be desirable to place a central line due to risk of extravasation. Patient agrees that she has bad veins is that her IVs often below. She has had a central line in the past and did not like having a central line in her IJ because it hurt whenever she turns her neck. We discussed alternative placements such as femoral. Although I would typically shy away from femoral central lines due to risk for infection, in this case she may be an ideal candidate. She has diversion of her stool because of ostomy and diversion or urine with Cristobal catheter. She also does not walk because she is paraplegic. Discussed risks of central line including arterial injury, hematoma formation,. Consent obtained from the patient her daughter. Repeat lactic acid actually came back looking normal at 0.9. Repeat VBG shows normal pH. No signs of evolving metabolic acidosis. Right femoral central line was placed under direct ultrasound guidance. We were able to achieve return of dark red venous blood that was nonpulsatile. Central line was placed without difficulty or any resistance with advancing the guidewire, dilator, or catheter. All ports were flushed and capped. Patient tolerated well. There is no sign of any evolving hematoma, arterial ischemia in her leg, or other complications. Patient started on Levophed infusion. With this blood pressure rapidly came up. Actually came up higher than goal up to about 120/48. This was on the lowest titratable rate of Levophed. Patient's mental status remained normal. Another bedside recheck a perfusion was a performed. No signs of any evolving limb ischemia or pallor of her skin. Blood pressure improved. At this point, I think she is stable for admission to her critical care unit. Mental status is normal. She is maintaining her airway. Blood pressure is improved on low-dose of vasopressor. Broad-spectrum antibiotics have been administered. <Santy Ward MD - Last Filed: 04/09/25 04:10> Vital Signs Vital signs: Initial Vital Signs Temperature Source Temporal Artery Scan 04/08/25 21:28 Respiratory Rate 20 04/08/25 21:28 Respiratory Effort Normal, Spontaneous, Non-Labored 04/08/25 21:28 Respiratory Depth Normal 04/08/25 21:28 Respiratory Pattern Normal 04/08/25 21:28 Pulse Oximetry 96 04/08/25 21:28 Oxygen Delivery Method Room Air 04/08/25 21:28 Sepsis Recent Fever Within 48 Hours Yes 04/08/25 21:28 Sepsis New/Unexplained Change in Mental Status Yes 04/08/25 21:28 Sepsis Action Taken by Nursing No Action Required 04/08/25 21:28 Vital Signs Respiratory Rate 20 04/08/25 21:28 Pulse Oximetry 96 04/08/25 21:28 Oxygen Delivery Method Room Air 04/08/25 21:28 Temperature 97.9 F 04/10/25 14:55 Pulse Rate 89 04/10/25 23:39 Respiratory Rate 20 04/10/25 22:39 Blood Pressure 180/90 H 04/10/25 14:55 Pulse Oximetry 92 04/10/25 22:39 Oxygen Delivery Method Room Air, BiPAP 04/10/25 22:39 Oxygen Flow Rate 0.5 04/10/25 02:00 <Daniel Parker DO - Last Filed: 04/11/25 00:51> Initial Vital Signs Temperature Source Temporal Artery Scan 04/08/25 21:28 Respiratory Rate 04/08/25 21:28 Respiratory Effort Normal, Spontaneous, Non-Labored 04/08/25 21:28 Respiratory Depth Normal 04/08/25 21:28 Respiratory Pattern Normal 04/08/25 21:28 Pulse Oximetry 96 04/08/25 21:28 Oxygen Delivery Method Room Air 04/08/25 21:28 Sepsis Recent Fever Within 48 Hours Yes 04/08/25 21:28 Sepsis New/Unexplained Change in Mental Status Yes 04/08/25 21:28 Sepsis Action Taken by Nursing No Action Required 04/08/25 21:28 Vital Signs Respiratory Rate 20 04/08/25 21:28 Pulse Oximetry 96 04/08/25 21:28 Oxygen Delivery Method Room Air 04/08/25 21:28 Temperature 97.9 F 04/10/25 14:55 Pulse Rate 89 04/10/25 23:39 Respiratory Rate 04/10/25 22:39 Blood Pressure 180/90 H 04/10/25 14:55 Pulse Oximetry 92 04/10/25 22:39 Oxygen Delivery Method Room Air, BiPAP 04/10/25 22:39 Oxygen Flow Rate 0.5 04/10/25 02:00 <Santy Ward MD - Last Filed: 04/09/25 04:10> Medications Administered Medications: Generic Name Dose Route Start Last Admin Trade Name Freq PRN Reason Stop Dose Admin Acetaminophen 650 mg 04/09/25 04:53 04/10/25 05:36 Acetaminophen 325 Mg Tablet PO 650 mg Q6H PRN Administration fever, mild pain Gabapentin 300 mg 04/09/25 11:15 04/10/25 20:35 Gabapentin 300 Mg Capsule PO 300 mg TID ESTELA Administration Heparin Sodium (Porcine) 500 unit 04/10/25 08:15 04/10/25 20:36 Heparin 500 Unit/5 Ml Syringe IVF 500 unit Q12H ESTELA Administration Heparin Sodium (Porcine) 500 unit 04/10/25 08:09 04/10/25 12:40 Heparin 500 Unit/5 Ml Syringe IVF 500 unit FLUSHPRN PRN Administration Hydrocortisone Sodium Succinate 50 mg 04/09/25 05:30 04/10/25 20:35 Hydrocortisone Sod Succinate 50 Mg/Ml Inj IVP 50 mg Q8H ESTELA Administration Hydromorphone HCl 2 mg 04/09/25 11:09 04/10/25 20:55 Hydromorphone 2 Mg Tablet PO 2 mg Q6H PRN Administration Pain Norepinephrine/Dextrose 4,000 mcg in 250 mls @ 23.474 mls/hr 04/09/25 03:04 04/10/25 03:44 Norepinephrine Infusion IVPB Not Given CONT ESTELA Protocol 0.1 MCG/KG/MIN Meropenem 2 gm/ Sodium 100 mls @ 200 mls/hr 04/09/25 06:00 04/10/25 19:00 Chloride IVPB Infused Q12H ESTELA Infusion Metoprolol Succinate 50 mg 04/10/25 09:15 04/10/25 09:18 Metoprolol Succinate (Xl) 50 Mg Tab PO 50 mg DAILY ESTELA Administration Pantoprazole Sodium 40 mg 04/09/25 05:00 04/10/25 05:38 Pantoprazole Sodium 40 Mg Inj IVP 40 mg Q24H ESTELA Administration Potassium Chloride 20 meq 04/09/25 18:00 04/10/25 19:19 Potassium Chloride 10 Meq Capsule Er PO 20 meq BIDWM ESTELA Administration Sodium Chloride 5 ml 04/09/25 04:53 04/10/25 20:56 Sodium Chloride 0.9 % (Flush) 10 Ml Syringe IVF 5 ml .FLUSH PRN Administration Sodium Chloride 5 ml 04/09/25 09:00 04/10/25 20:36 Sodium Chloride 0.9 % (Flush) 10 Ml Syringe IVF 5 ml BID ESTELA Administration Sodium Chloride 250 ml 04/09/25 06:45 04/09/25 17:52 0.9 % Sodium Chloride 250 Ml IV 250 ml Q24H PRN Administration abx Discontinued Medications Generic Name Dose Route Start Last Admin Trade Name Mar PRN Reason Stop Dose Admin Acetaminophen 650 mg 04/08/25 21:58 04/08/25 22:22 Acetaminophen 325 Mg Tablet PO 04/08/25 21:59 650 mg ONCE ONE Administration Daptomycin 420 mg 04/09/25 01:45 04/10/25 01:24 Daptomycin 50 Mg/Ml Inj 8 mg/kg (420 mg) 420 mg IVP Administration Q24H ESTELA Furosemide 20 mg 04/10/25 20:35 04/10/25 20:54 Furosemide 10 Mg/Ml Inj IVP 04/10/25 20:36 20 mg ONCE ONE Administration Sodium Chloride 1,000 mls @ 1,000 mls/hr 04/08/25 21:45 04/08/25 23:30 0.9 % Sodium Chloride 1000 Ml IV 04/08/25 22:44 Infused .Q1H ESTELA Infusion Ceftriaxone Sodium 1 gm/ 100 mls @ 200 mls/hr 04/08/25 23:40 04/09/25 00:56 Sodium Chloride IVPB 04/08/25 23:41 Infused ONCE ONE Infusion Azithromycin 500 mg/ Sodium 255 mls @ 255 mls/hr 04/08/25 23:40 04/09/25 04:34 Chloride IVPB 04/08/25 23:41 Infused ONCE ONE Infusion Sodium Chloride 1,000 mls @ 1,000 mls/hr 04/08/25 23:45 04/09/25 04:34 0.9 % Sodium Chloride 1000 Ml IV 04/09/25 00:44 Infused .Q1H ESTELA Infusion Levofloxacin/Dextrose 750 mg in 150 mls @ 100 mls/hr 04/09/25 01:18 04/09/25 04:34 Levofloxacin 750 Mg/150 Ml IVPB Infused Q24H ESTELA Infusion Metronidazole 500 mg in 100 mls @ 100 mls/hr 04/09/25 01:18 04/09/25 04:34 Metronidazole IVPB 04/09/25 02:17 Infused ONCE ONE Infusion Sodium Chloride 1,000 mls @ 1,000 mls/hr 04/09/25 01:45 04/09/25 04:34 0.9 % Sodium Chloride 1000 Ml IV 04/09/25 02:44 Infused .Q1H ESTELA Infusion Sodium Chloride 1,000 mls @ 125 mls/hr 04/09/25 03:55 04/10/25 04:55 0.9 % Sodium Chloride 1000 Ml IV Infused .Q8H ESTELA Infusion Meropenem 1 gm/ Sodium 100 mls @ 200 mls/hr 04/09/25 05:00 04/09/25 11:37 Chloride IVPB Not Given Q8H ESTELA Potassium Chloride 10 meq in 100 mls @ 100 mls/hr 04/09/25 08:15 04/09/25 16:43 Potassium Chloride IVPB 04/09/25 13:44 Infused Q90M ESTELA Infusion Lactated Ringer's 1,000 mls @ 125 mls/hr 04/10/25 07:10 04/10/25 20:34 Lactated Ringers 1000 Ml IV Not Given .Q8H ESTELA Calcium Gluconate/Sodium Chloride 1,000 mg in 50 mls @ 100 mls/hr 04/10/25 07:08 04/10/25 19:00 Calcium Gluc 1,000mg/50 Ml IVPB 04/10/25 07:37 Infused ONCE ONE Infusion Lactated Ringer's 500 mls @ 500 mls/hr 04/10/25 12:03 04/10/25 19:00 Lactated Ringers 500 Ml IV 04/10/25 13:02 Infused .Q1H ONE Infusion Ondansetron HCl 4 mg 04/09/25 01:15 04/09/25 01:34 Ondansetron 2 Mg/Ml Inj IVP 04/09/25 01:16 4 mg ONCE ONE Administration Ondansetron HCl 4 mg 04/09/25 03:54 04/09/25 04:02 Ondansetron 2 Mg/Ml Inj IVP 04/09/25 03:55 4 mg ONCE ONE Administration Potassium Bicarbonate 50 meq 04/09/25 11:12 04/09/25 11:25 Potassium Bicarb 25 Meq Effervescent Tab PO 04/09/25 11:13 50 meq ONCE ONE Administration <Daniel Parker, DO - Last Filed: 04/11/25 00:51> Generic Name Dose Route Start Last Admin Trade Name Freq PRN Reason Stop Dose Admin Acetaminophen 650 mg 04/09/25 04:53 04/10/25 05:36 Acetaminophen 325 Mg Tablet PO 650 mg Q6H PRN Administration fever, mild pain Gabapentin 300 mg 04/09/25 11:15 04/10/25 20:35 Gabapentin 300 Mg Capsule PO 300 mg TID ESTELA Administration Heparin Sodium (Porcine) 500 unit 04/10/25 08:15 04/10/25 20:36 Heparin 500 Unit/5 Ml Syringe IVF 500 unit Q12H ESTELA Administration Heparin Sodium (Porcine) 500 unit 04/10/25 08:09 04/10/25 12:40 Heparin 500 Unit/5 Ml Syringe IVF 500 unit FLUSHPRN PRN Administration Hydrocortisone Sodium Succinate 50 mg 04/09/25 05:30 04/10/25 20:35 Hydrocortisone Sod Succinate 50 Mg/Ml Inj IVP 50 mg Q8H ESTELA Administration Hydromorphone HCl 2 mg 04/09/25 11:09 04/10/25 20:55 Hydromorphone 2 Mg Tablet PO 2 mg Q6H PRN Administration Pain Norepinephrine/Dextrose 4,000 mcg in 250 mls @ 23.474 mls/hr 04/09/25 03:04 04/10/25 03:44 Norepinephrine Infusion IVPB Not Given CONT ESTELA Protocol 0.1 MCG/KG/MIN Meropenem 2 gm/ Sodium 100 mls @ 200 mls/hr 04/09/25 06:00 04/10/25 19:00 Chloride IVPB Infused Q12H ESTELA Infusion Metoprolol Succinate 50 mg 04/10/25 09:15 04/10/25 09:18 Metoprolol Succinate (Xl) 50 Mg Tab PO 50 mg DAILY ESTELA Administration Pantoprazole Sodium 40 mg 04/09/25 05:00 04/10/25 05:38 Pantoprazole Sodium 40 Mg Inj IVP 40 mg Q24H ESTELA Administration Potassium Chloride 20 meq 04/09/25 18:00 04/10/25 19:19 Potassium Chloride 10 Meq Capsule Er PO 20 meq BIDWM ESTELA Administration Sodium Chloride 5 ml 04/09/25 04:53 04/10/25 20:56 Sodium Chloride 0.9 % (Flush) 10 Ml Syringe IVF 5 ml .FLUSH PRN Administration Sodium Chloride 5 ml 04/09/25 09:00 04/10/25 20:36 Sodium Chloride 0.9 % (Flush) 10 Ml Syringe IVF 5 ml BID ESTELA Administration Sodium Chloride 250 ml 04/09/25 06:45 04/09/25 17:52 0.9 % Sodium Chloride 250 Ml IV 250 ml Q24H PRN Administration abx Discontinued Medications Generic Name Dose Route Start Last Admin Trade Name Mar PRN Reason Stop Dose Admin Acetaminophen 650 mg 04/08/25 21:58 04/08/25 22:22 Acetaminophen 325 Mg Tablet PO 04/08/25 21:59 650 mg ONCE ONE Administration Daptomycin 420 mg 04/09/25 01:45 04/10/25 01:24 Daptomycin 50 Mg/Ml Inj 8 mg/kg (420 mg) 420 mg IVP Administration Q24H ESTELA Furosemide 20 mg 04/10/25 20:35 04/10/25 20:54 Furosemide 10 Mg/Ml Inj IVP 04/10/25 20:36 20 mg ONCE ONE Administration Sodium Chloride 1,000 mls @ 1,000 mls/hr 04/08/25 21:45 04/08/25 23:30 0.9 % Sodium Chloride 1000 Ml IV 04/08/25 22:44 Infused .Q1H ESTELA Infusion Ceftriaxone Sodium 1 gm/ 100 mls @ 200 mls/hr 04/08/25 23:40 04/09/25 00:56 Sodium Chloride IVPB 04/08/25 23:41 Infused ONCE ONE Infusion Azithromycin 500 mg/ Sodium 255 mls @ 255 mls/hr 04/08/25 23:40 04/09/25 04:34 Chloride IVPB 04/08/25 23:41 Infused ONCE ONE Infusion Sodium Chloride 1,000 mls @ 1,000 mls/hr 04/08/25 23:45 04/09/25 04:34 0.9 % Sodium Chloride 1000 Ml IV 04/09/25 00:44 Infused .Q1H ESTELA Infusion Levofloxacin/Dextrose 750 mg in 150 mls @ 100 mls/hr 04/09/25 01:18 04/09/25 04:34 Levofloxacin 750 Mg/150 Ml IVPB Infused Q24H ESTELA Infusion Metronidazole 500 mg in 100 mls @ 100 mls/hr 04/09/25 01:18 04/09/25 04:34 Metronidazole IVPB 04/09/25 02:17 Infused ONCE ONE Infusion Sodium Chloride 1,000 mls @ 1,000 mls/hr 04/09/25 01:45 04/09/25 04:34 0.9 % Sodium Chloride 1000 Ml IV 04/09/25 02:44 Infused .Q1H ESTELA Infusion Sodium Chloride 1,000 mls @ 125 mls/hr 04/09/25 03:55 04/10/25 04:55 0.9 % Sodium Chloride 1000 Ml IV Infused .Q8H ESTELA Infusion Meropenem 1 gm/ Sodium 100 mls @ 200 mls/hr 04/09/25 05:00 04/09/25 11:37 Chloride IVPB Not Given Q8H ESTELA Potassium Chloride 10 meq in 100 mls @ 100 mls/hr 04/09/25 08:15 04/09/25 16:43 Potassium Chloride IVPB 04/09/25 13:44 Infused Q90M ESTELA Infusion Lactated Ringer's 1,000 mls @ 125 mls/hr 04/10/25 07:10 04/10/25 20:34 Lactated Ringers 1000 Ml IV Not Given .Q8H ESTELA Calcium Gluconate/Sodium Chloride 1,000 mg in 50 mls @ 100 mls/hr 04/10/25 07:08 04/10/25 19:00 Calcium Gluc 1,000mg/50 Ml IVPB 04/10/25 07:37 Infused ONCE ONE Infusion Lactated Ringer's 500 mls @ 500 mls/hr 04/10/25 12:03 04/10/25 19:00 Lactated Ringers 500 Ml IV 04/10/25 13:02 Infused .Q1H ONE Infusion Ondansetron HCl 4 mg 04/09/25 01:15 04/09/25 01:34 Ondansetron 2 Mg/Ml Inj IVP 04/09/25 01:16 4 mg ONCE ONE Administration Ondansetron HCl 4 mg 04/09/25 03:54 04/09/25 04:02 Ondansetron 2 Mg/Ml Inj IVP 04/09/25 03:55 4 mg ONCE ONE Administration Potassium Bicarbonate 50 meq 04/09/25 11:12 04/09/25 11:25 Potassium Bicarb 25 Meq Effervescent Tab PO 04/09/25 11:13 50 meq ONCE ONE Administration <Santy Ward MD - Last Filed: 04/09/25 04:10> MDM - Fever MDM Narrative Medical decision making narrative: Patient is a 79-year-old female presenting for fever and tachycardia. She meets SIRS criteria. Acetaminophen given for her fever. Septic workup will be ordered. Will do a portable chest to look for signs of pneumonia. Also CT scan her head, chest, abdomen, pelvis. Broad workup being done to look for signs of wants causing her fever. She is having the right lower quadrant pain that do some concern for appendicitis. COVID/flu/RSV, VBG, urinalysis, troponin, magnesium, lactate, CBC, CMP, blood cultures all ordered. Chest x-ray reviewed by myself and the radiologist shows no acute concerning abnormalities. Her white blood cell count is elevated but appears to be at her baseline. VBG not concerning with very mildly elevated pH. Is rest of her labs showed no acute concerning abnormality. Urinalysis still pending at this time. Viral swabs are negative. CT scan of the head shows no acute concerning abnormalities. Chest x-ray shows no acute concerning abnormalities. CT scan of the chest/abdomen/pelvis shows some mild bibasal a peribronchial thickening and streaky consolidation. Possibly bronchitis and/or aspiration. Also appears to have mildly distended bladder with circumferential wall thickening possible UTI. There is some concern for osteomyelitis in this patient but her wound I do not see bone and I do believe the UTI is more likely. Will start the patient on azithromycin and ceftriaxone. 2 of her 3 most recent UTIs are sensitive to Rocephin. 30 milliliters/kilos fluids have been ordered. Weight was per the daughter who states that just weight her. She still tachycardic but her fever has improved. Of note patient did desat down to 85% on room air with a good waveform. Is currently on 3 L and satting well. Patient is much more now and is answering all questions appropriately. She states she has not remember the ambulance ride in. I did speak to the accepting hospitalist Dr. Elaine and he accepted the patient for admission. Of note after he accepted the patient patient's neck blood pressure was hypotensive. This is despite her clinically appearing much better. I will have staff pressure bag the last L of fluids in. We will continue to monitor her here in the emergency department until pressures improved. She was signed out to my colleague. <Daniel Parker, - Last Filed: 04/11/25 00:51> Lab Data Labs: Lab Results 04/08/25 04/08/25 04/08/25 Range/Units 20:50 22:04 23:10 WBC 15.30 H (4.50-11.00) K/uL RBC 4.78 (4.00-5.20) m/uL Hgb 14.4 (12.0-16.0) gm/dL Hct 46.6 (33.0-51.0) % MCV 98 (80-100) fL MCH 30 (26-34) pg MCHC 31 L (32-36) gm/dL RDW Coeff of Lynette 14.5 (11.5-15.5) % Plt Count 195 (140-440) K/uL Neut % (Auto) 81.1 H (42.0-72.0) % Lymph % (Auto) 8.7 L (20-44) % Nelson % (Auto) 5.5 (0.0-11.0) % Eos % (Auto) 1.7 (0.0-7.0) % Baso % (Auto) 0.1 (0.0-3.0) % Neut # (Auto) 12.40 H (1.7-7.0) K/uL Lymph # (Auto) 1.30 (0.90-2.90) K/uL Nelson # (Auto) 0.80 (0.00-0.90) K/UL Eos # (Auto) 0.30 (0.00-0.50) K/uL Baso # (Auto) 0.00 (0.00-0.30) K/uL Abs Immat Gran (auto) 0.40 H (0.00-0.30) K/uL Imm/Tot Granulo (auto) 2.9 % VBG pH 7.444 H (7.32-7.43) VBG pCO2 46 (40-50) mmHG VBG pO2 41.1 (25-47) mmHG VBG HCO3 32 H (21-28) mmol/L Sodium 138 (135-149) mmol/L Potassium 4.0 (3.6-5.1) mmol/L Chloride 100 (96-114) mmol/L Carbon Dioxide 31 (20-32) mmol/L Anion Gap 7 (7-15) mEq/L BUN 24 (7-30) mg/dL Creatinine 0.3 L (0.5-1.5) mg/dL Estimated GFR 109 ml/min Glucose 103 (60-115) mg/dL Lactate 1.8 (0.5-1.9) mmol/L Calcium 9.0 (8.4-10.6) mg/dL Magnesium 2.2 (1.5-2.6) mg/dL Total Bilirubin 1.5 (0.1-1.5) mg/dL AST 103 H (12-35) U/L ALT 107 H (4-35) U/L Alkaline Phosphatase 176 H (40-150) U/L Troponin I < 0.01 (0.01-0.04) ng/mL Total Protein 6.5 (6.0-8.3) g/dL Albumin 4.0 (3.3-5.0) g/dL Urine Color Yellow (Yellow) Urine Appearance Cloudy A (Clear) Urine pH 5.5 (5.0-8.5) Ur Specific [place] 1.020 (1.000-1.030) Urine Protein 1+ A (Negative) Urine Glucose (UA) Negative (Negative) Urine Ketones Negative (Negative) Urine Blood 2+ A (Negative) Urine Nitrite Positive A (Negative) Urine Bilirubin Negative (Negative) Urine Urobilinogen 0.2 (0.2-1.0) Ur Leukocyte Esterase 2+ A (Negative) Urine RBC 2-5 A (0-2) Urine WBC 10-25 A (0-5) Urine WBC Clumps Few A (None) Ur Squamous Epith Cells Few (None-Few) Amorphous Sediment Moderate A (None) Urine Bacteria Many A (None) Urine Trichomonas Not Reportable Urine Yeast Many A (None) SARS-CoV-2 (PCR) Negative SARS-CoV-2 (Negative) Influenza Type A (PCR) Negative PCR FLU A (Negative) Influenza Type B (PCR) Negative PCR FLU B (Negative) RSV (PCR) Negative PCR RSV (Negative) 04/09/25 Range/Units 02:05 WBC (4.50-11.00) K/uL RBC (4.00-5.20) m/uL Hgb (12.0-16.0) gm/dL Hct (33.0-51.0) % MCV (80-100) fL MCH (26-34) pg MCHC (32-36) gm/dL RDW Coeff of Lynette (11.5-15.5) % Plt Count (140-440) K/uL Neut % (Auto) (42.0-72.0) % Lymph % (Auto) (20-44) % Nelson % (Auto) (0.0-11.0) % Eos % (Auto) (0.0-7.0) % Baso % (Auto) (0.0-3.0) % Neut # (Auto) (1.7-7.0) K/uL Lymph # (Auto) (0.90-2.90) K/uL Nelson # (Auto) (0.00-0.90) K/UL Eos # (Auto) (0.00-0.50) K/uL Baso # (Auto) (0.00-0.30) K/uL Abs Immat Gran (auto) (0.00-0.30) K/uL Imm/Tot Granulo (auto) % VBG pH 7.336 (7.32-7.43) VBG pCO2 48 (40-50) mmHG VBG pO2 81.3 H (25-47) mmHG VBG HCO3 26 (21-28) mmol/L Sodium (135-149) mmol/L Potassium (3.6-5.1) mmol/L Chloride (96-114) mmol/L Carbon Dioxide (20-32) mmol/L Anion Gap (7-15) mEq/L BUN (7-30) mg/dL Creatinine (0.5-1.5) mg/dL Estimated GFR ml/min Glucose (60-115) mg/dL Lactate 0.9 (0.5-1.9) mmol/L Calcium (8.4-10.6) mg/dL Magnesium (1.5-2.6) mg/dL Total Bilirubin (0.1-1.5) mg/dL AST (12-35) U/L ALT (4-35) U/L Alkaline Phosphatase (40-150) U/L Troponin I (0.01-0.04) ng/mL Total Protein (6.0-8.3) g/dL Albumin (3.3-5.0) g/dL Urine Color (Yellow) Urine Appearance (Clear) Urine pH (5.0-8.5) Ur Specific [place] (1.000-1.030) Urine Protein (Negative) Urine Glucose (UA) (Negative) Urine Ketones (Negative) Urine Blood (Negative) Urine Nitrite (Negative) Urine Bilirubin (Negative) Urine Urobilinogen (0.2-1.0) Ur Leukocyte Esterase (Negative) Urine RBC (0-2) Urine WBC (0-5) Urine WBC Clumps (None) Ur Squamous Epith Cells (None-Few) Amorphous Sediment (None) Urine Bacteria (None) Urine Trichomonas Urine Yeast (None) SARS-CoV-2 (PCR) (Negative) Influenza Type A (PCR) (Negative) Influenza Type B (PCR) (Negative) RSV (PCR) (Negative) <Daniel Parker, DO - Last Filed: 04/11/25 00:51> Lab Results 04/08/25 04/08/25 04/08/25 Range/Units 20:50 22:04 23:10 WBC 15.30 H (4.50-11.00) K/uL RBC 4.78 (4.00-5.20) m/uL Hgb 14.4 (12.0-16.0) gm/dL Hct 46.6 (33.0-51.0) % MCV 98 (80-100) fL MCH 30 (26-34) pg MCHC 31 L (32-36) gm/dL RDW Coeff of Lynette 14.5 (11.5-15.5) % Plt Count 195 (140-440) K/uL Neut % (Auto) 81.1 H (42.0-72.0) % Lymph % (Auto) 8.7 L (20-44) % Nelson % (Auto) 5.5 (0.0-11.0) % Eos % (Auto) 1.7 (0.0-7.0) % Baso % (Auto) 0.1 (0.0-3.0) % Neut # (Auto) 12.40 H (1.7-7.0) K/uL Lymph # (Auto) 1.30 (0.90-2.90) K/uL Nelson # (Auto) 0.80 (0.00-0.90) K/UL Eos # (Auto) 0.30 (0.00-0.50) K/uL Baso # (Auto) 0.00 (0.00-0.30) K/uL Abs Immat Gran (auto) 0.40 H (0.00-0.30) K/uL Imm/Tot Granulo (auto) 2.9 % VBG pH 7.444 H (7.32-7.43) VBG pCO2 46 (40-50) mmHG VBG pO2 41.1 (25-47) mmHG VBG HCO3 32 H (21-28) mmol/L Sodium 138 (135-149) mmol/L Potassium 4.0 (3.6-5.1) mmol/L Chloride 100 (96-114) mmol/L Carbon Dioxide 31 (20-32) mmol/L Anion Gap 7 (7-15) mEq/L BUN 24 (7-30) mg/dL Creatinine 0.3 L (0.5-1.5) mg/dL Estimated GFR 109 ml/min Glucose 103 (60-115) mg/dL Lactate 1.8 (0.5-1.9) mmol/L Calcium 9.0 (8.4-10.6) mg/dL Magnesium 2.2 (1.5-2.6) mg/dL Total Bilirubin 1.5 (0.1-1.5) mg/dL AST 103 H (12-35) U/L ALT 107 H (4-35) U/L Alkaline Phosphatase 176 H (40-150) U/L Troponin I < 0.01 (0.01-0.04) ng/mL Total Protein 6.5 (6.0-8.3) g/dL Albumin 4.0 (3.3-5.0) g/dL Urine Color Yellow (Yellow) Urine Appearance Cloudy A (Clear) Urine pH 5.5 (5.0-8.5) Ur Specific [place] 1.020 (1.000-1.030) Urine Protein 1+ A (Negative) Urine Glucose (UA) Negative (Negative) Urine Ketones Negative (Negative) Urine Blood 2+ A (Negative) Urine Nitrite Positive A (Negative) Urine Bilirubin Negative (Negative) Urine Urobilinogen 0.2 (0.2-1.0) Ur Leukocyte Esterase 2+ A (Negative) Urine RBC 2-5 A (0-2) Urine WBC 10-25 A (0-5) Urine WBC Clumps Few A (None) Ur Squamous Epith Cells Few (None-Few) Amorphous Sediment Moderate A (None) Urine Bacteria Many A (None) Urine Trichomonas Not Reportable Urine Yeast Many A (None) SARS-CoV-2 (PCR) Negative SARS-CoV-2 (Negative) Influenza Type A (PCR) Negative PCR FLU A (Negative) Influenza Type B (PCR) Negative PCR FLU B (Negative) RSV (PCR) Negative PCR RSV (Negative) 04/09/25 Range/Units 02:05 WBC (4.50-11.00) K/uL RBC (4.00-5.20) m/uL Hgb (12.0-16.0) gm/dL Hct (33.0-51.0) % MCV (80-100) fL MCH (26-34) pg MCHC (32-36) gm/dL RDW Coeff of Lynette (11.5-15.5) % Plt Count (140-440) K/uL Neut % (Auto) (42.0-72.0) % Lymph % (Auto) (20-44) % Nelson % (Auto) (0.0-11.0) % Eos % (Auto) (0.0-7.0) % Baso % (Auto) (0.0-3.0) % Neut # (Auto) (1.7-7.0) K/uL Lymph # (Auto) (0.90-2.90) K/uL Nelson # (Auto) (0.00-0.90) K/UL Eos # (Auto) (0.00-0.50) K/uL Baso # (Auto) (0.00-0.30) K/uL Abs Immat Gran (auto) (0.00-0.30) K/uL Imm/Tot Granulo (auto) % VBG pH 7.336 (7.32-7.43) VBG pCO2 48 (40-50) mmHG VBG pO2 81.3 H (25-47) mmHG VBG HCO3 26 (21-28) mmol/L Sodium (135-149) mmol/L Potassium (3.6-5.1) mmol/L Chloride (96-114) mmol/L Carbon Dioxide (20-32) mmol/L Anion Gap (7-15) mEq/L BUN (7-30) mg/dL Creatinine (0.5-1.5) mg/dL Estimated GFR ml/min Glucose (60-115) mg/dL Lactate 0.9 (0.5-1.9) mmol/L Calcium (8.4-10.6) mg/dL Magnesium (1.5-2.6) mg/dL Total Bilirubin (0.1-1.5) mg/dL AST (12-35) U/L ALT (4-35) U/L Alkaline Phosphatase (40-150) U/L Troponin I (0.01-0.04) ng/mL Total Protein (6.0-8.3) g/dL Albumin (3.3-5.0) g/dL Urine Color (Yellow) Urine Appearance (Clear) Urine pH (5.0-8.5) Ur Specific [place] (1.000-1.030) Urine Protein (Negative) Urine Glucose (UA) (Negative) Urine Ketones (Negative) Urine Blood (Negative) Urine Nitrite (Negative) Urine Bilirubin (Negative) Urine Urobilinogen (0.2-1.0) Ur Leukocyte Esterase (Negative) Urine RBC (0-2) Urine WBC (0-5) Urine WBC Clumps (None) Ur Squamous Epith Cells (None-Few) Amorphous Sediment (None) Urine Bacteria (None) Urine Trichomonas Urine Yeast (None) SARS-CoV-2 (PCR) (Negative) Influenza Type A (PCR) (Negative) Influenza Type B (PCR) (Negative) RSV (PCR) (Negative) <Santy Ward MD - Last Filed: 04/09/25 04:10> Imaging Data Chest x-ray: Attestation: I have reviewed the pertinent imaging results. <Daniel Parker DO - Last Filed: 04/11/25 00:51> Radiologist's impression: Low lung volumes. No acute or significant findings. No change. Dictated by Saeid Deras MD @ 04/08/2025 10:18:51 PM <Daniel Parker DO - Last Filed: 04/11/25 00:51> CT scan head: Attestation: I have reviewed the pertinent imaging results. <Daniel Parker DO - Last Filed: 04/11/25 00:51> Radiologist's impression: No acute abnormality appreciated. Please note that all CT scans at this facility use dose modulation, iterative reconstruction, and/or weight-based dosing when appropriate to reduce radiation dose to as low as reasonably achievable. Dictated by Jovani Mckenzie MD @ 04/08/2025 11:18:06 PM <Daniel Parker DO - Last Filed: 04/11/25 00:51> CT Chest/Ab/Pelvis: Attestation: I have reviewed the pertinent imaging results. <Daniel Parker DO - Last Filed: 04/11/25 00:51> Radiologist's impression: Mild bibasilar peribronchial thickening with streaky consolidation, possibly bronchitis or aspiration. No focal consolidations. Persistent sclerotic changes involving the right ischial tuberosity and sacrum consistent with history of chronic osteomyelitis. Superimposed acute osteomyelitis is not excluded. Persistent 13 millimeter nonobstructing stone in the right renal pelvis. Additional adjacent smaller nonobstructing stone. Colonic diverticulosis without diverticulitis. Mildly distended bladder with circumferential wall thickening. Recommend correlation with urinalysis if urinary tract infection is of concern. Please note that all CT scans at this facility use dose modulation, iterative reconstruction, and/or weight-based dosing when appropriate to reduce radiation dose to as low as reasonably achievable. Dictated by Saeid Deras MD @ 04/08/2025 11:33:38 PM <Daniel Parker DO - Last Filed: 04/11/25 00:51> ECG Data Attestation: I personally reviewed and interpreted this ECG as follows: <Daniel Parker DO - Last Filed: 04/11/25 00:51> Prior ECG tracings: available for review <Daniel Parker DO - Last Filed: 04/11/25 00:51> Interpretation: Sinus tachycardia with a rate of 132 beats per minute, right bundle branch block, normal QRS, normal UT interval, no obvious ST or T-wave abnormalities. Does appears similar previous EKG on file <Daniel Parker DO - Last Filed: 04/11/25 00:51> Critical Care Time Critical Care Time Critical Care Time: Yes Attestation: The patient required my highest level preparedness to intervene emergently and I personally spent this critical care time directly and personally managing the patient. This critical care time included: Obtaining a history; Examining the patient; Pulse oximetry; Ordering and reviewing of studies; Arranging urgent treatment with development of a management plan; Evaluation of patients response to treatment; Frequent reassessment discussions with other providers. This critical care time was performed to assess and manage the high probability of imminent life-threatening deterioration that could result in multiorgan failure. It was exclusive of separate billable procedures and treating other patients and teaching time. <Daniel Parker DO - Last Filed: 04/11/25 00:51> Total Critical Care Time in Minutes: 42 <Daniel Parker DO - Last Filed: 04/11/25 00:51> Discharge Plan Discharge Clinical Impression: Acute UTI, Aspiration pneumonitis, Septic shock Sepsis Qualifiers: Sepsis type: sepsis due to unspecified organism Sepsis acute organ dysfunction status: with acute organ dysfunction Severe sepsis acute organ dysfunction type: encephalopathy Severe sepsis shock status: unspecified Qualified Code(s): A41.9 - Sepsis, unspecified organism <Daniel Parker DO - Last Filed: 04/11/25 00:51> Patient Disposition: Admitted As Inpatient <Daniel Parker DO - Last Filed: 04/11/25 00:51> Procedures Central Line Placement Right Femoral: Pre procedure diagnosis: Septic shock, need for vasopressors <Santy Ward MD - Last Filed: 04/09/25 04:10> Post procedure diagnosis: Septic shock <Santy Ward MD - Last Filed: 04/09/25 04:10> Site marking: site marked <Santy Ward MD - Last Filed: 04/09/25 04:10> Technique: non-tunneled <Santy Ward MD - Last Filed: 04/09/25 04:10> Image guidance used: US guidance <Santy Ward MD - Last Filed: 04/09/25 04:10> Verification/time out: correct patient, correct site, correct procedure and time out performed <Santy Ward MD - Last Filed: 04/09/25 04:10> Picking Belt Operator 1, if any: Nurses Heidy and scarlett <Santy Ward MD - Last Filed: 04/09/25 04:10> Anesthesia: lidocaine 1% <Santy Ward MD - Last Filed: 04/09/25 04:10> Amount of anesthesia used (mL): 5 <Santy Ward MD - Last Filed: 04/09/25 04:10> Patient Placed on Monitor/Pulse Ox: Yes <Santy Ward MD - Last Filed: 04/09/25 04:10> MD Prep: mask, gown and gloves <Santy Ward MD - Last Filed: 04/09/25 04:10> Central Line Prep: Chlorhexidine scrub and sterile drapes applied <Santy Ward MD - Last Filed: 04/09/25 04:10> Ultrasound Used for Placement: Yes <Santy Ward MD - Last Filed: 04/09/25 04:10> Central Line Lumen Inserted: triple <Santy Ward MD - Last Filed: 04/09/25 04:10> Post Procedure: sutured in place, good blood return, all ports aspirated, flushed, capped and sterile dressing applied <Santy Ward MD - Last Filed: 04/09/25 04:10> Estimated blood loss (if any): less than 5mls <Santy Ward MD - Last Filed: 04/09/25 04:10> Complications: none <Santy Ward MD - Last Filed: 04/09/25 04:10> Patient Tolerated Procedure: well <Santy Ward MD - Last Filed: 04/09/25 04:10>
[2025-04-08 22:03] LABS: HCO3 VBG 32 mmol/L (21-28); Lactate Sepsis w/Reflex* 1.8 mmol/L (0.5-1.9); PCO2 VBG 46 mmHG (40-50); PO2 VBG 41.1 mmHG (25-47); pH VBG 7.444 (7.32-7.43)
[2025-04-08 22:06] LABS: Hematocrit 46.6 % (33.0-51.0); Hemoglobin* 14.4 gm/dL (12.0-16.0); Immature Granulocytes Pct Auto 2.9 %; Mean Corpuscular HGB Conc 31 gm/dL (32-36); Mean Corpuscular Hemoglobin 30 pg (26-34); Mean Corpuscular Volume 98 fL (80-100); RDW Coefficient of Variation % 14.5 % (11.5-15.5); Red Blood Count 4.78 m/uL (4.00-5.20); White Blood Count* 15.30 K/uL (4.50-11.00)
--- NOTE | 2025-04-08 22:09 | CRLHL7_ITS ---
For Patients: As a result of the Century Cures Act, medical imaging exams and procedure reports are released immediately into your electronic medical record. You may view this report before your referring provider. If you have questions, please contact your health care provider. Indication: Favors Technique: Noncontrast CT through the head with multiplanar reformats Comparison: None Findings: Brain: No acute hemorrhage. No acute infarct. No significant mass effect or midline shift. No gross evidence of a mass lesion or cerebral edema. Moderate to severe chronic microvascular ischemic disease. Mild global parenchymal volume loss. Ventricles: No acute abnormality appreciated. Orbits, sinuses, mastoids: No acute abnormality appreciated. Calvarium and soft tissues: No acute abnormality appreciated. Impression: No acute abnormality appreciated. Please note that all CT scans at this facility use dose modulation, iterative reconstruction, and/or weight-based dosing when appropriate to reduce radiation dose to as low as reasonably achievable. Dictated by Jovani Mckenzie MD @ 04/08/2025 11:18:06 PM (Electronically Signed)
[2025-04-08 22:16] LABS: Immature Granulocytes Abs Auto 0.40 K/uL (0.00-0.30); Lymphocytes Absolute Auto 1.30 K/uL (0.90-2.90); Slide Review Reflex No
[2025-04-08 22:19] LABS: Albumin* 4.0 g/dL (3.3-5.0); Chloride* 100 mmol/L (96-114); Sodium* 138 mmol/L (135-149)
[2025-04-08 22:20] LABS: Potassium* 4.0 mmol/L (3.6-5.1)
[2025-04-08 22:22] LABS: Alanine Aminotransferase* 107 U/L (4-35); Alkaline Phosphatase* 176 U/L (40-150); Anion Gap 7 mEq/L (7-15); Aspartate Amino Transferase* 103 U/L (12-35); Bilirubin Total* 1.5 mg/dL (0.1-1.5); Blood Urea Nitrogen* 24 mg/dL (7-30); Carbon Dioxide* 31 mmol/L (20-32); Creatinine* 0.3 mg/dL (0.5-1.5); Estimated Glomerular Filt Rate 109 ml/min; Total Protein* 6.5 g/dL (6.0-8.3)
[2025-04-08] MEDS: ACETAMINOPHEN 325 MG TABLET 650 MG PO (22:22)
[2025-04-08 22:23] LABS: Calcium* 9.0 mg/dL (8.4-10.6); Glucose* 103 mg/dL (60-115)
[2025-04-08 23:00] LABS: PCR FLU A Negative PCR FLU A (Negative); PCR FLU B Negative PCR FLU B (Negative); PCR RSV Negative PCR RSV (Negative); SARS PCR* Negative SARS-CoV-2 (Negative)
[2025-04-08 23:48] LABS: Appearance Urine Cloudy (Clear)
[2025-04-09] VITALS (129 sets, daily range): BP systolic 72–146; BP diastolic 29–77; PULSE 84–112; RESP 18–20; TEMP 36.2–36.9; O2SAT 88–99; BMI 28.4
[2025-04-09] MEDS: cefTRIAXone 1 GM in 0.9 % SODIUM CHLORIDE Mini-bag 100 ML IVPB (00:16)
[2025-04-09] MEDS: AZITHROMYCIN 500 MG in 0.9 % SODIUM CHLORIDE 250 ml 250 ML 255 MG IVPB (00:51)
[2025-04-09] MEDS: ONDANSETRON 2 MG/ML inj 4 MG IVP ×2 (01:34→04:02)
[2025-04-09 02:11] LABS: HCO3 VBG 26 mmol/L (21-28); Lactate* 0.9 mmol/L (0.5-1.9); PCO2 VBG 48 mmHG (40-50); PO2 VBG 81.3 mmHG (25-47); pH VBG 7.336 (7.32-7.43)
[2025-04-09] MEDS: metroNIDAZOLE 500 MG/100 ML PIGGYBACK 100 MG IVPB (02:19)
[2025-04-09] MEDS: DAPTOmycin 50 MG/ML inj 420 MG IVP (02:37)
[2025-04-09] MEDS: levoFLOXacin 750 MG/150 ML 750 MG/150 ML PIGGYBACK 100 MG IVPB (02:43)
[2025-04-09] MEDS: NORepinephrine INFUSION 4,000 MCG/250 ML PLAST..BAG 23.47 MCG IVPB (03:28)
--- NOTE | 2025-04-09 04:59 | W.PM.TELEH&P ---
Telehealth- H&P: HPI History of Present Illness Date Seen: 04/09/25 Chief complaint: fever Narrative: Prerna Major is seen as an interactive telehealth visit. She is a 78-year-old female who is brought in for evaluation of lethargy and shaking chills. 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 She reportedly had worsening nausea around 6 PM. Then she developed shaking chills. Temperature went up to around 101 and 102. She denies any abdominal pain currently but when she was initially in the ER she was fairly lethargic but was complaining of lower abdominal pain. She denied any sore throat. She denied any cough. She does report intermittent headaches. She states that she has a history of sepsis often due to urinary tract infection. In the ER initial imaging was concerning for aspiration pneumonitis versus pneumonia. UA showed evidence of infection. She became hypotensive and eventually required pressor support. She initially received ceftriaxone and azithromycin but antibiotics were broadened as she has a history of Enterococcus, Pseudomonas, E. coli, Klebsiella and MRSA. She has a history of anaphylaxis with vancomycin. She was given a dose of Levaquin, Flagyl and daptomycin. Review of Systems Status of ROS: Reports: 10 or more systems reviewed and unremarkable except as noted in History and below [facility] Medical History Lower extremity edema ?R60.0 - Localized edema (ICD-10) Scalp abscess ?L02.811 - Cutaneous abscess of head [any part, except face] (ICD-10) HTN (hypertension) ?I10 - Essential (primary) hypertension (ICD-10) Health care directive on file ?Z78.9 - Other specified health status (ICD-10) Pressure ulcer of coccygeal region, stage 4 ?L89.154 - Pressure ulcer of sacral region, stage 4 (ICD-10) UTI (urinary tract infection) ?N39.0 - Urinary tract infection, site not specified (ICD-10) Hypoalbuminemia due to protein-calorie malnutrition ?E88.09 - Other disorders of plasma-protein metabolism, not elsewhere classified (ICD-10) ?E46 - Unspecified protein-calorie malnutrition (ICD-10) 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, stage 4 ?L89.44 - Pressure ulcer of contiguous site of back, buttock and hip, stage 4 (ICD-10) Pressure ulcer ?L89.90 - Pressure ulcer of unspecified site, unspecified stage (ICD-10) Osteomyelitis ?M86.9 - Osteomyelitis, unspecified (ICD-10) Anemia ?D64.9 - Anemia, unspecified (ICD-10) Diarrhea ?R19.7 - Diarrhea, unspecified (ICD-10) Intravenous infiltration ?T80.1XXA - Vascular complications following infusion, transfusion and therapeutic injection, initial encounter (ICD-10) Neurogenic bladder ?N31.9 - Neuromuscular dysfunction of bladder, unspecified (ICD-10) Chronic, continuous use of opioids ?F11.90 - Opioid use, unspecified, uncomplicated (ICD-10) Rheumatoid arthritis ?M06.9 - Rheumatoid arthritis, unspecified (ICD-10) Cristobal catheter in place ?Z97.8 - Presence of other specified devices (ICD-10) Sleep apnea ?G47.30 - Sleep apnea, unspecified (ICD-10) Paraplegia ?G82.20 - Paraplegia, unspecified (ICD-10) Acute on chronic anemia ?D64.9 - Anemia, unspecified (ICD-10) Paraplegia ?G82.20 - Paraplegia, unspecified (ICD-10) Chronic pain ?G89.29 - Other chronic pain (ICD-10) Tubular adenoma of colon ?D12.6 - Benign neoplasm of colon, unspecified (ICD-10) 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 - Acute transverse myelitis in demyelinating disease of central nervous system (ICD-10) Septic shock ?A41.9 - Sepsis, unspecified organism (ICD-10) ?R65.21 - Severe sepsis with septic shock (ICD-10) Recurrent urinary tract infection ?N39.0 - Urinary tract infection, site not specified (ICD-10) Osteoporosis ?M81.0 - Age-related osteoporosis without current pathological fracture (ICD-10) History of methicillin resistant Staphylococcus aureus infection ?Z86.14 - Personal history of Methicillin resistant Staphylococcus aureus infection (ICD-10) Surgical History Status post debridement ?Z98.890 - Other specified postprocedural states (ICD-10) Social History Narrative: Mary has recently been living at [facility], daughter Elvi (MDM if needed) is hoping to bring her home with [facility] caregiving. has cognitive impairment. At this time (12/08/23), she is requesting DNR/DNI status. Nonsmoker, no ETOH use. What is your current living situation?: I presently have a place to live Problems where you live: no known problems Problems where you live details: n/a In the past 12 months, utilities in danger of being shut off: no In past 12 months, lack of transportation kept you from medical appts, meetings, work, or getting things needed for daily living: no In the past 12 mos, have been you worried that your food would run out before you had money to buy more?: never true In the past 12 mos, the food you bought just didn't last and you didn't have money to buy more?: never true Highest level of school completed/degree received: Bachelor's degree Smoking Status: Never smoker Do you use any of these nicotine containing products: None Second hand tobacco smoke exposure: No How often do you have a drink containing alcohol: never How often do you have six or more drinks on one occasion: Never AUDIT-C Alcohol total score: 0 Non-prescribed substance use: denies use Caffeine: Yes (1 cup coffee/day) How often does anyone, including family, friends and others, physically hurt you: never How often does anyone, including family, friends and others, insult or talk down to you: never How often does anyone, including family, friends and others, threaten you with harm: never How often does anyone, including family, friends and others, scream or curse at you: never service: No Meds Home Medications and Allergies Home Medications ?Medication ?Instructions ?Recorded ?Confirmed ?Type ascorbic acid (vitamin C) 500 mg 500 mg PO DAILY #30 tabs 12/13/23 08/24/24 Rx tablet (Vitamin C) loperamide 2 mg capsule 2 mg PO TID PRN loose stool #30 03/02/24 11/12/24 Rx caps miconazole nitrate 2 % topical 1 applic topical BID PRN #85 grams 12/13/23 08/24/24 Rx powder zinc sulfate 50 mg zinc (220 mg) 50 mg PO DAILY #30 caps 12/13/23 08/24/24 Rx capsule multivitamin with folic acid 400 1 tab PO DAILY 03/22/24 08/24/24 History mcg tablet (Daily-Charles (with folic acid)) Lactobacillus rhamnosus GG PO .QD 07/07/24 08/24/24 History [Culturelle] acetaminophen 650 mg 1,300 mg PO Q12H PRN 07/07/24 08/24/24 History tablet,extended release diclofenac sodium 1 % topical gel 4 g topical TID PRN 07/07/24 08/24/24 History lidocaine HCl 4 % topical patch 3 patch topical QDAY 07/07/24 08/24/24 History pregabalin 75 mg capsule 75 mg PO TID 07/07/24 08/24/24 History sennosides 8.6 mg tablet 8.6 - 17.2 mg PO BID PRN 07/07/24 08/24/24 History triamcinolone acetonide 0.1 % 1 applic topical BID PRN 07/07/24 08/24/24 History topical cream furosemide 20 mg tablet 20 mg PO QAM #90 tabs 08/24/24 08/24/24 Rx metoprolol succinate 50 mg 50 mg PO QDAY #90 tabs 08/24/24 08/24/24 Rx tablet,extended release 24 hr naproxen sodium 220 mg capsule 220 mg PO QDAY PRN 08/24/24 08/24/24 History polyethylene glycol 3350 17 gram 17 g PO QDAY 08/24/24 08/24/24 History oral powder packet (Miralax) prednisone 5 mg tablet 10 mg (2 x 5 mg) PO DAILY #180 tabs 08/24/24 08/24/24 Rx hydromorphone 2 mg tablet 2 mg PO Q6H PRN pain #90 tabs 10/19/24 Rx (Dilaudid) Allergies Allergy/AdvReac Type Severity Reaction Status Date / Time piperacillin Allergy Intermediate Rash Verified 04/08/25 23:17 sulfamethoxazole (From Allergy Intermediate Hives Verified 04/08/25 23:17 Bactrim) tazobactam Allergy Intermediate Rash Verified 04/08/25 23:17 trimethoprim (From Bactrim) Allergy Intermediate Hives Verified 04/08/25 23:17 vancomycin Allergy Unknown Anaphylactic Verified 04/08/25 23:17 shock with this medication. Also long-term demario Exam Narrative Exam Narrative: GENERAL: vital signs reviewed, chronically ill appearing, currently appears acutely ill HEENT: pupils are equal and round, extraocular movements are grossly within normal limits and oral mucosa is very dry NECK: Supple without lymphadenopathy or thyromegaly according to nursing staff examination observation HEART: Regular rate and rhythm with a systolic murmur LUNGS: Clear to auscultation bilaterally with good air movement throughout ABDOMEN: Observation from nurse assisted exam, abdomen appears soft, nontender, and nondistended with Positive bowel sounds noted. Ostomy in place EXTREMITIES: Strength and sensation is observed to be grossly within normal limits in the upper, chronic paraplegia noted. SKIN: Observed warm and dry with color normal. Good capillary refill, sacral wound currently dressed, not reassessed, reviewed by ER provider and patient has a right femoral central line in place NEURO: Alert, awake and oriented. Answers all questions appropriately. No new focal neuro deficits are noted. PSYCH: Affect normal Const Vital Signs, click to edit/add: Vital Signs - 24 hr 04/08/25 21:28 04/08/25 21:28 04/08/25 21:29 Temperature 102.0 F H Pulse Rate Pulse Rate [Left Pulse Oximeter] 128 H Respiratory Rate 20 22 Blood Pressure Blood Pressure [Left Upper Arm] 188/85 H Pulse Oximetry 96 86 L 88 Oxygen Delivery Method Room Air Room Air 04/08/25 22:22 04/08/25 22:38 04/08/25 22:40 Temperature 98.2 F Pulse Rate 128 H 129 H Pulse Rate [Left Pulse Oximeter] Respiratory Rate Blood Pressure Blood Pressure [Left Upper Arm] Pulse Oximetry 97 97 Oxygen Delivery Method 04/08/25 23:13 04/08/25 23:14 04/08/25 23:15 Temperature Pulse Rate 126 H 125 H 125 H Pulse Rate [Left Pulse Oximeter] Respiratory Rate 20 Blood Pressure 128/42 L Blood Pressure [Left Upper Arm] Pulse Oximetry 90 93 94 Oxygen Delivery Method 04/08/25 23:30 04/08/25 23:31 04/08/25 23:32 Temperature Pulse Rate 124 H 123 H 122 H Pulse Rate [Left Pulse Oximeter] Respiratory Rate Blood Pressure 111/39 L Blood Pressure [Left Upper Arm] Pulse Oximetry 97 98 97 Oxygen Delivery Method 04/08/25 23:45 04/09/25 00:00 04/09/25 00:02 Temperature Pulse Rate 118 H 112 H 112 H Pulse Rate [Left Pulse Oximeter] Respiratory Rate Blood Pressure 83/37 L Blood Pressure [Left Upper Arm] Pulse Oximetry 97 98 97 Oxygen Delivery Method 04/09/25 00:02 04/09/25 00:02 04/09/25 00:03 Temperature Pulse Rate 112 H 112 H 111 H Pulse Rate [Left Pulse Oximeter] Respiratory Rate Blood Pressure 83/37 L 83/37 L Blood Pressure [Left Upper Arm] Pulse Oximetry 97 97 98 Oxygen Delivery Method 04/09/25 00:15 04/09/25 00:17 04/09/25 00:22 Temperature Pulse Rate 109 H 111 H 107 H Pulse Rate [Left Pulse Oximeter] Respiratory Rate Blood Pressure 83/35 L 78/34 L Blood Pressure [Left Upper Arm] Pulse Oximetry 98 97 97 Oxygen Delivery Method 04/09/25 00:29 04/09/25 00:30 04/09/25 00:31 Temperature Pulse Rate 111 H 108 H 110 H Pulse Rate [Left Pulse Oximeter] Respiratory Rate Blood Pressure 78/29 L 78/41 L Blood Pressure [Left Upper Arm] Pulse Oximetry 96 96 96 Oxygen Delivery Method 04/09/25 00:45 04/09/25 00:46 04/09/25 01:00 Temperature Pulse Rate 104 H 105 H 102 H Pulse Rate [Left Pulse Oximeter] Respiratory Rate Blood Pressure 73/63 L Blood Pressure [Left Upper Arm] Pulse Oximetry 98 97 98 Oxygen Delivery Method 04/09/25 01:02 04/09/25 01:02 04/09/25 01:03 Temperature Pulse Rate 98 98 99 Pulse Rate [Left Pulse Oximeter] Respiratory Rate Blood Pressure 80/38 L 80/38 L Blood Pressure [Left Upper Arm] Pulse Oximetry 98 98 97 Oxygen Delivery Method 04/09/25 01:06 04/09/25 01:10 04/09/25 01:16 Temperature Pulse Rate 95 92 94 Pulse Rate [Left Pulse Oximeter] Respiratory Rate Blood Pressure 80/37 L 81/34 L Blood Pressure [Left Upper Arm] Pulse Oximetry 96 97 98 Oxygen Delivery Method 04/09/25 01:20 04/09/25 01:30 04/09/25 01:32 Temperature Pulse Rate 93 96 98 Pulse Rate [Left Pulse Oximeter] Respiratory Rate Blood Pressure 83/36 L Blood Pressure [Left Upper Arm] Pulse Oximetry 98 97 97 Oxygen Delivery Method 04/09/25 01:39 04/09/25 01:45 04/09/25 01:46 Temperature Pulse Rate 91 93 94 Pulse Rate [Left Pulse Oximeter] Respiratory Rate Blood Pressure 77/34 L 81/36 L Blood Pressure [Left Upper Arm] Pulse Oximetry 98 97 96 Oxygen Delivery Method 04/09/25 02:00 04/09/25 02:01 04/09/25 02:15 Temperature Pulse Rate 93 92 92 Pulse Rate [Left Pulse Oximeter] Respiratory Rate Blood Pressure 76/44 L Blood Pressure [Left Upper Arm] Pulse Oximetry 96 96 98 Oxygen Delivery Method 04/09/25 02:16 04/09/25 02:17 04/09/25 02:30 Temperature Pulse Rate 92 92 91 Pulse Rate [Left Pulse Oximeter] Respiratory Rate Blood Pressure 79/36 L Blood Pressure [Left Upper Arm] Pulse Oximetry 98 98 97 Oxygen Delivery Method 04/09/25 02:32 04/09/25 02:45 04/09/25 02:46 Temperature Pulse Rate 91 92 92 Pulse Rate [Left Pulse Oximeter] Respiratory Rate Blood Pressure 85/36 L 86/38 L Blood Pressure [Left Upper Arm] Pulse Oximetry 98 97 98 Oxygen Delivery Method 04/09/25 03:00 04/09/25 03:01 04/09/25 03:02 Temperature Pulse Rate 95 95 94 Pulse Rate [Left Pulse Oximeter] Respiratory Rate Blood Pressure 84/40 L Blood Pressure [Left Upper Arm] Pulse Oximetry 97 96 97 Oxygen Delivery Method 04/09/25 03:15 04/09/25 03:17 04/09/25 03:18 Temperature Pulse Rate 94 96 91 Pulse Rate [Left Pulse Oximeter] Respiratory Rate Blood Pressure 76/33 L Blood Pressure [Left Upper Arm] Pulse Oximetry 99 98 98 Oxygen Delivery Method 04/09/25 03:20 04/09/25 03:25 04/09/25 03:30 Temperature Pulse Rate 91 86 89 Pulse Rate [Left Pulse Oximeter] Respiratory Rate Blood Pressure Blood Pressure [Left Upper Arm] Pulse Oximetry 99 98 99 Oxygen Delivery Method 04/09/25 03:32 04/09/25 03:34 04/09/25 03:35 Temperature Pulse Rate 88 86 87 Pulse Rate [Left Pulse Oximeter] Respiratory Rate Blood Pressure 80/34 L 74/35 L Blood Pressure [Left Upper Arm] Pulse Oximetry 99 98 98 Oxygen Delivery Method 04/09/25 03:37 04/09/25 03:41 04/09/25 03:45 Temperature Pulse Rate 87 86 85 Pulse Rate [Left Pulse Oximeter] Respiratory Rate Blood Pressure 76/32 L 72/32 L Blood Pressure [Left Upper Arm] Pulse Oximetry 98 99 97 Oxygen Delivery Method 04/09/25 03:46 04/09/25 03:51 04/09/25 03:56 Temperature Pulse Rate 86 84 86 Pulse Rate [Left Pulse Oximeter] Respiratory Rate Blood Pressure 112/48 L 122/47 L 118/48 L Blood Pressure [Left Upper Arm] Pulse Oximetry 97 99 99 Oxygen Delivery Method 04/09/25 03:57 04/09/25 04:00 04/09/25 04:01 Temperature Pulse Rate 88 88 87 Pulse Rate [Left Pulse Oximeter] Respiratory Rate Blood Pressure 119/49 L Blood Pressure [Left Upper Arm] Pulse Oximetry 97 98 98 Oxygen Delivery Method 04/09/25 04:02 04/09/25 04:06 04/09/25 04:33 Temperature Pulse Rate 88 86 Pulse Rate [Left Pulse Oximeter] Respiratory Rate Blood Pressure 125/54 L Blood Pressure [Left Upper Arm] Pulse Oximetry 98 98 92 Oxygen Delivery Method Hospitalist - H&P: Result Labs Labs: Short CBC 04/08/25 Range/Units 20:50 WBC 15.30 H (4.50-11.00) K/uL Hgb 14.4 (12.0-16.0) gm/dL Hct 46.6 (33.0-51.0) % Plt Count 195 (140-440) K/uL BMP 04/08/25 20:50 Sodium 138 Potassium 4.0 Chloride 100 Carbon Dioxide 31 BUN 24 Creatinine 0.3 L Glucose 103 Calcium 9.0 Cardiac Enzymes 04/08/25 Range/Units 20:50 Troponin I < 0.01 (0.01-0.04) ng/mL Liver Function 04/08/25 Range/Units 20:50 Total Bilirubin 1.5 (0.1-1.5) mg/dL AST 103 H (12-35) U/L ALT 107 H (4-35) U/L Alkaline Phosphatase 176 H (40-150) U/L Albumin 4.0 (3.3-5.0) g/dL Urine 04/08/25 Range/Units 23:10 Urine Color Yellow (Yellow) Urine Appearance Cloudy A (Clear) Urine pH 5.5 (5.0-8.5) Ur Specific [place] 1.020 (1.000-1.030) Urine Protein 1+ A (Negative) Urine Glucose (UA) Negative (Negative) ECG Attestation: I personally reviewed and interpreted this ECG as follows: ECG interpretation date: 04/09/25 Prior ECG tracings: available for review Interpretation: sinus tachycardia with right bundle branch block Assessment and Plan Assessment and plan (1) Septic shock: Status: Acute (2) Sepsis: Status: Acute (3) Aspiration pneumonitis: Status: Acute (4) Acute UTI: Status: Acute (5) Pressure ulcer of right buttock, stage 4: Status: Acute (6) Type 2 diabetes mellitus: Problem comment: 03/07/24 A1C 6.6% @ [facility] Status: Acute (7) Osteomyelitis: Status: Acute (8) COPD (chronic obstructive pulmonary disease): Problem comment: - chronic overlay with central sleep apnea and hypoventilation given long standing paraplegia - previously has used BIPAP during hospital stays Status: Acute (9) Neurogenic bladder: Problem comment: - chronic indwelling catheter Status: Chronic (10) Chronic, continuous use of opioids: Problem comment: - on Oxycodone 7.5 mg QID as an outpatient, continue to assess and treat as needed. Increasing risk for worsening hypoxia and hypoventilation Status: Acute (11) Sleep apnea: Problem comment: - Clinically suspected, no previous evaluation or sleep study - encourage postoperative pulmonary hygiene, Aerobika Status: Suspected (12) CO2 retention: Problem comment: - long history of severe CO2 retention, cannot receive supplemental oxygen without BiPAP, RT aware and following - using BIPAP at night Status: Acute (13) Paraplegia: Problem comment: - since age 6; 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 Status: Chronic Plan Septic shock Severe sepsis Septic encephalopathy Sepsis secondary to suspected gram-negative organism Catheter associated UTI, chronic Cristobal catheter Follow-up blood culture and urine culture No lactic acidosis but had refractory hypotension despite 30 mL/kg IV fluids in the ER Currently has adequate perfusion on exam with good capillary refill Keep MAP greater than 65 with Levophed Monitor urine output Per ER providers, chronic sacral wound is around baseline with no signs of infection Chest x-ray was concerning for aspiration pneumonitis Meets sepsis criteria with endorgan dysfunction due to septic encephalopathy, tachycardia, leukocytosis with no infection Daptomycin to cover for MRSA and Enterococcus Meropenem to cover for Pseudomonas, patient has an allergy to Zosyn which covers most prior organisms CT did show thickening of the bladder concerning for acute cystitis Patient with significant volume depletion, baseline Hgb around 10, 14.4 on admit. Continue IVFs. Hold Lasix Acute metabolic/septic encephalopathy CT head with no acute findings Aspiration pneumonitis Received ceftriaxone and azithromycin, symptoms are more consistent with acute cystitis so stopped atypical coverage Mild bibasilar peribronchial thickening, possible bronchitis versus aspiration Speech consult Clear liquids for now Chest x-ray personally reviewed: Faint bibasilar opacities, poor inspiratory effort HUI Obesity hypoventilation COPD Keep sats between 80 to 94% BiPAP at night No acute COPD exacerbation Sacral wound, stage IV present on admission History of osteomyelitis Wound consult, when clinically stable would consider MRI to assess for abscess and worsening osteo Neurogenic bowel Neurogenic bladder Chronic paraplegia due to transverse myelitis Chronic, stable Elevated LFTs Unclear etiology, recheck in a.m. No significant right upper quadrant pain Prior cholecystectomy Type 2 diabetes with polyneuropathy Not on long-term insulin or hypoglycemics Hold gabapentin due to encephalopathy Rheumatoid arthritis On chronic steroids Will start hydrocortisone 50 every 8 hours for possible adrenal insufficiency given septic shock DNR/DNI confirmed on admission Prior to admission home medications that were felt to be needed immediately have been ordered. The remainder of the home medications will await pharmacy reconciliation and will be ordered by the attending provider in the a.m. Telehealth Visit: Today's History and Physical is provided via interactive telehealth by Dr. Triston Elaine MD. Patient is located at [facility]. Provider is located at [facility]. Nursing staff assisted with the patient's exam. The visit being done today meets criteria for a telehealth visit and the patient or patients parent/guardian is aware the visit is a telehealth visit. Camera Start Time: 441 Camera End Time: 045 Medical Complexity: High Management of critical illness 37 minutes including time seeing patient, placing orders, coordinating care with emergency department and nurses. Management of septic shock with risk of life-threatening endorgan dysfunction and risk of ~~~~~~~~~~~~~~~~ Dr. Triston Elaine Telehealth: Statement Statement Telehealth Visit: Today's History and Physical is provided via interactive telehealth by Triston Elaine MD.? Patient is located at [facility].? Provider is located at [facility].? Nursing staff assisted with the patient's exam. The visit being done today meets criteria for a telehealth visit and the patient or patient?s parent/guardian is aware the visit is a telehealth visit. Camera Start Time: 04:42 Camera End Time: 04:50
[2025-04-09] MEDS: HYDROCORTISONE SOD SUCCINATE 50 MG/ML inj IVP ×3 (05:56→21:54)
[2025-04-09] MEDS: PANTOPRAZOLE SODIUM 40 MG INJ IVP (05:56)
[2025-04-09] MEDS: SODIUM CHLORIDE 0.9 % (FLUSH) 10 ML SYRINGE 5 ML IVF ×5 (05:58→20:44)
[2025-04-09] MEDS: MEROPENEM IVPB ×2 (06:15→17:51)
[2025-04-09] MEDS: SODIUM CHLORIDE MINI 0.9% IVPB ×2 (06:15→17:51)
--- NOTE | 2025-04-09 07:18 | PC.NURSE ---
Pt tolerating Norepi gtts, BP map >65 with gtts going, below 65 when gtts off, did not need to titrate gtt during shift, remains at 0.1 mcg/kg/min. Alert and oriented. Urine output from delacruz 100ml. requires 1-2 LPM O2 to maintain sats >88%. offloaded pt from coccyx during night due to chroni pressure ulcer present at admission, being treated at home.
[2025-04-09 07:29] LABS: Hematocrit 40.3 % (33.0-51.0); Hemoglobin* 12.1 gm/dL (12.0-16.0); Immature Granulocytes Pct Auto 0.8 %; Mean Corpuscular HGB Conc 30 gm/dL (32-36); Mean Corpuscular Hemoglobin 30 pg (26-34); Mean Corpuscular Volume 101 fL (80-100); RDW Coefficient of Variation % 15.1 % (11.5-15.5); Red Blood Count 3.99 m/uL (4.00-5.20); White Blood Count* 16.95 K/uL (4.50-11.00)
[2025-04-09 07:34] LABS: Immature Granulocytes Abs Auto 0.10 K/uL (0.00-0.30); Lymphocytes Absolute Auto 1.80 K/uL (0.90-2.90); Slide Review Reflex No
[2025-04-09 07:43] LABS: Albumin* 2.8 g/dL (3.3-5.0); Chloride* 109 mmol/L (96-114); Sodium* 140 mmol/L (135-149)
[2025-04-09 07:46] LABS: Alanine Aminotransferase* 68 U/L (4-35); Alkaline Phosphatase* 134 U/L (40-150); Anion Gap 7 mEq/L (7-15); Aspartate Amino Transferase* 58 U/L (12-35); Bilirubin Total* 0.9 mg/dL (0.1-1.5); Blood Urea Nitrogen* 18 mg/dL (7-30); Carbon Dioxide* 24 mmol/L (20-32); Creatine Kinase* 26 U/L (41-117); Creatinine* 0.3 mg/dL (0.5-1.5); Est. Creatinine Clearance* 33.30; Estimated Glomerular Filt Rate 109 ml/min; Total Protein* 4.9 g/dL (6.0-8.3)
[2025-04-09 07:47] LABS: Calcium* 7.4 mg/dL (8.4-10.6); Glucose* 101 mg/dL (60-115)
[2025-04-09 07:58] LABS: Potassium* 2.9 mmol/L (3.6-5.1)
--- NOTE | 2025-04-09 07:59 | PM.IMPN1 ---
Assessment and Plan Assessment and plan (1) Septic shock: Problem comment: - presented with BPs 80s/30s, HR 130s decreased mentation, temperature of 102 - requiring Norepinephrine via central line to keep MAP >65 - 04/09: BP and pulse improving, tapering Norepinephrine as MAP allows - on Meropenem and Daptomycin Status: Acute (2) Sepsis: Problem comment: - UTI probable source, also has known chronic sacral ulcer and concern for chronic osteomyelitis - no recent dental work or surgery Status: Acute (3) Acute UTI: Problem comment: - UA positive in ER, culture pending Status: Acute (4) Hypokalemia: Problem comment: - replace and follow - Magnesium 2.2 on 04/08 Status: Acute (5) Pressure ulcer of right buttock, stage 4: Problem comment: - with radiographic concerns of chronic osteomyelitis - appeared noninfected in ER Status: Acute (6) Type 2 diabetes mellitus: Problem comment: - diet controlled, current A1C 6.3 (03/2025) - accuchecks Status: Acute (7) COPD (chronic obstructive pulmonary disease): Problem comment: - chronic overlay with central sleep apnea and hypoventilation given long standing paraplegia - previously has used BIPAP during hospital stays at night Status: Acute (8) Neurogenic bladder: Problem comment: - chronic indwelling delacruz - replaced in ER 04/09 Status: Chronic (9) Chronic, continuous use of opioids: Problem comment: - takes hydromorphone as an outpatient Status: Acute (10) Paraplegia: Problem comment: - since age 6; 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 Status: Chronic (11) Colostomy status: Problem comment: - diverting colostomy 05/2024 2/2 chronic constipation/obstruction and chronic sacral wounds Status: Acute (12) Elevated LFTs: Problem comment: - 04/08: AST 103, ALT 107, alk phos 176, reassuring imaging - 04/09: trending downward, continue to follow Status: Acute Plan - per above (taper Norepinephrine as tolerated, IV antibiotics, potassium replacement) - will likely require 2-3 more days as an inpatient given critically ill state Subjective Date Seen: 04/09/25 Interval history: Mary is a 79 yo female with paraplegia 2/2 transverse myelitis, chronic sacral wounds with radiographic concerns for chronic osteomyelitis, who was admitted to the CCU earlier this morning for septic shock. UTI probable source, sacral wound did not appear infected in ER (also had recently seen HH nurse who did not have concerns for acute infection). Daptomycin and Meropenem initiated, also remains on Norepinephrine for pressure support. She has a central line in her L groin. This morning, Mary is still feeling poorly but mentating normally (was essentially only able to answer yes/no questions in the ER 04/08). No specific concerns for hospitalist team. Exam Narrative: Exam Narrative: GEN: Awake and laying comfortably in bed, answering questions appropriately HEENT: Normal external ears, EOMIs bilaterally, no scleral icterus CV: HR 100s, harsh systolic murmur heard across precodium R: No wheezing, no tachypnea, decreased bibasilar breath sounds Ext: thin extremities, wwp, no concerning edema Skin: Exposed skin normal. Sacral wound not formally examined this morning as appeared stable in ER Neuro: Nonfocal Psych: Appropriate Const: Vital Signs, click to edit/add: Vital Signs - 24 hr 04/08/25 21:28 04/08/25 21:28 04/08/25 21:29 Temperature 102.0 F H Pulse Rate Pulse Rate [Left P ulse Oximeter] 128 H Pulse Rate [Pulse Oximeter] Respiratory Rate 20 22 Blood Pressure Blood Pressure [Le ft Arm] Blood Pressure [Le ft Upper Arm] 188/85 H Pulse Oximetry 96 86 L 88 Oxygen Delivery Me thod Room Air Room Air Oxygen Flow Rate 04/08/25 22:22 04/08/25 22:38 04/08/25 22:40 Temperature 98.2 F Pulse Rate 128 H 129 H Pulse Rate [Left P ulse Oximeter] Pulse Rate [Pulse Oximeter] Respiratory Rate Blood Pressure Blood Pressure [Le ft Arm] Blood Pressure [Le ft Upper Arm] Pulse Oximetry 97 97 Oxygen Delivery Me thod Oxygen Flow Rate 04/08/25 23:13 04/08/25 23:14 04/08/25 23:15 Temperature Pulse Rate 126 H 125 H 125 H Pulse Rate [Left P ulse Oximeter] Pulse Rate [Pulse Oximeter] Respiratory Rate 20 Blood Pressure 128/42 L Blood Pressure [Le ft Arm] Blood Pressure [Le ft Upper Arm] Pulse Oximetry 90 93 94 Oxygen Delivery Me thod Oxygen Flow Rate 04/08/25 23:30 04/08/25 23:31 04/08/25 23:32 Temperature Pulse Rate 124 H 123 H 122 H Pulse Rate [Left P ulse Oximeter] Pulse Rate [Pulse Oximeter] Respiratory Rate Blood Pressure 111/39 L Blood Pressure [Le ft Arm] Blood Pressure [Le ft Upper Arm] Pulse Oximetry 97 98 97 Oxygen Delivery Me thod Oxygen Flow Rate 04/08/25 23:45 04/09/25 00:00 04/09/25 00:02 Temperature Pulse Rate 118 H 112 H 112 H Pulse Rate [Left P ulse Oximeter] Pulse Rate [Pulse Oximeter] Respiratory Rate Blood Pressure 83/37 L Blood Pressure [Le ft Arm] Blood Pressure [Le ft Upper Arm] Pulse Oximetry 97 98 97 Oxygen Delivery Me thod Oxygen Flow Rate 04/09/25 00:02 04/09/25 00:02 04/09/25 00:03 Temperature Pulse Rate 112 H 112 H 111 H Pulse Rate [Left P ulse Oximeter] Pulse Rate [Pulse Oximeter] Respiratory Rate Blood Pressure 83/37 L 83/37 L Blood Pressure [Le ft Arm] Blood Pressure [Le ft Upper Arm] Pulse Oximetry 97 97 98 Oxygen Delivery Me thod Oxygen Flow Rate 04/09/25 00:15 04/09/25 00:17 04/09/25 00:22 Temperature Pulse Rate 109 H 111 H 107 H Pulse Rate [Left P ulse Oximeter] Pulse Rate [Pulse Oximeter] Respiratory Rate Blood Pressure 83/35 L 78/34 L Blood Pressure [Le ft Arm] Blood Pressure [Le ft Upper Arm] Pulse Oximetry 98 97 97 Oxygen Delivery Me thod Oxygen Flow Rate 04/09/25 00:29 04/09/25 00:30 04/09/25 00:31 Temperature Pulse Rate 111 H 108 H 110 H Pulse Rate [Left P ulse Oximeter] Pulse Rate [Pulse Oximeter] Respiratory Rate Blood Pressure 78/29 L 78/41 L Blood Pressure [Le ft Arm] Blood Pressure [Le ft Upper Arm] Pulse Oximetry 96 96 96 Oxygen Delivery Me thod Oxygen Flow Rate 04/09/25 00:45 04/09/25 00:46 04/09/25 01:00 Temperature Pulse Rate 104 H 105 H 102 H Pulse Rate [Left P ulse Oximeter] Pulse Rate [Pulse Oximeter] Respiratory Rate Blood Pressure 73/63 L Blood Pressure [Le ft Arm] Blood Pressure [Le ft Upper Arm] Pulse Oximetry 98 97 98 Oxygen Delivery Me thod Oxygen Flow Rate 04/09/25 01:02 04/09/25 01:02 04/09/25 01:03 Temperature Pulse Rate 98 98 99 Pulse Rate [Left P ulse Oximeter] Pulse Rate [Pulse Oximeter] Respiratory Rate Blood Pressure 80/38 L 80/38 L Blood Pressure [Le ft Arm] Blood Pressure [Le ft Upper Arm] Pulse Oximetry 98 98 97 Oxygen Delivery Me thod Oxygen Flow Rate 04/09/25 01:06 04/09/25 01:10 04/09/25 01:16 Temperature Pulse Rate 95 92 94 Pulse Rate [Left P ulse Oximeter] Pulse Rate [Pulse Oximeter] Respiratory Rate Blood Pressure 80/37 L 81/34 L Blood Pressure [Le ft Arm] Blood Pressure [Le ft Upper Arm] Pulse Oximetry 96 97 98 Oxygen Delivery Me thod Oxygen Flow Rate 04/09/25 01:20 04/09/25 01:30 04/09/25 01:32 Temperature Pulse Rate 93 96 98 Pulse Rate [Left P ulse Oximeter] Pulse Rate [Pulse Oximeter] Respiratory Rate Blood Pressure 83/36 L Blood Pressure [Le ft Arm] Blood Pressure [Le ft Upper Arm] Pulse Oximetry 98 97 97 Oxygen Delivery Me thod Oxygen Flow Rate 04/09/25 01:39 04/09/25 01:45 04/09/25 01:46 Temperature Pulse Rate 91 93 94 Pulse Rate [Left P ulse Oximeter] Pulse Rate [Pulse Oximeter] Respiratory Rate Blood Pressure 77/34 L 81/36 L Blood Pressure [Le ft Arm] Blood Pressure [Le ft Upper Arm] Pulse Oximetry 98 97 96 Oxygen Delivery Me thod Oxygen Flow Rate 04/09/25 02:00 04/09/25 02:01 04/09/25 02:15 Temperature Pulse Rate 93 92 92 Pulse Rate [Left P ulse Oximeter] Pulse Rate [Pulse Oximeter] Respiratory Rate Blood Pressure 76/44 L Blood Pressure [Le ft Arm] Blood Pressure [Le ft Upper Arm] Pulse Oximetry 96 96 98 Oxygen Delivery Me thod Oxygen Flow Rate 04/09/25 02:16 04/09/25 02:17 04/09/25 02:30 Temperature Pulse Rate 92 92 91 Pulse Rate [Left P ulse Oximeter] Pulse Rate [Pulse Oximeter] Respiratory Rate Blood Pressure 79/36 L Blood Pressure [Le ft Arm] Blood Pressure [Le ft Upper Arm] Pulse Oximetry 98 98 97 Oxygen Delivery Me thod Oxygen Flow Rate 04/09/25 02:32 04/09/25 02:45 04/09/25 02:46 Temperature Pulse Rate 91 92 92 Pulse Rate [Left P ulse Oximeter] Pulse Rate [Pulse Oximeter] Respiratory Rate Blood Pressure 85/36 L 86/38 L Blood Pressure [Le ft Arm] Blood Pressure [Le ft Upper Arm] Pulse Oximetry 98 97 98 Oxygen Delivery Me thod Oxygen Flow Rate 04/09/25 03:00 04/09/25 03:01 04/09/25 03:02 Temperature Pulse Rate 95 95 94 Pulse Rate [Left P ulse Oximeter] Pulse Rate [Pulse Oximeter] Respiratory Rate Blood Pressure 84/40 L Blood Pressure [Le ft Arm] Blood Pressure [Le ft Upper Arm] Pulse Oximetry 97 96 97 Oxygen Delivery Me thod Oxygen Flow Rate 04/09/25 03:15 04/09/25 03:17 04/09/25 03:18 Temperature Pulse Rate 94 96 91 Pulse Rate [Left P ulse Oximeter] Pulse Rate [Pulse Oximeter] Respiratory Rate Blood Pressure 76/33 L Blood Pressure [Le ft Arm] Blood Pressure [Le ft Upper Arm] Pulse Oximetry 99 98 98 Oxygen Delivery Me thod Oxygen Flow Rate 04/09/25 03:20 04/09/25 03:25 04/09/25 03:30 Temperature Pulse Rate 91 86 89 Pulse Rate [Left P ulse Oximeter] Pulse Rate [Pulse Oximeter] Respiratory Rate Blood Pressure Blood Pressure [Le ft Arm] Blood Pressure [Le ft Upper Arm] Pulse Oximetry 99 98 99 Oxygen Delivery Me thod Oxygen Flow Rate 04/09/25 03:32 04/09/25 03:34 04/09/25 03:35 Temperature Pulse Rate 88 86 87 Pulse Rate [Left P ulse Oximeter] Pulse Rate [Pulse Oximeter] Respiratory Rate Blood Pressure 80/34 L 74/35 L Blood Pressure [Le ft Arm] Blood Pressure [Le ft Upper Arm] Pulse Oximetry 99 98 98 Oxygen Delivery Me thod Oxygen Flow Rate 04/09/25 03:37 04/09/25 03:41 04/09/25 03:45 Temperature Pulse Rate 87 86 85 Pulse Rate [Left P ulse Oximeter] Pulse Rate [Pulse Oximeter] Respiratory Rate Blood Pressure 76/32 L 72/32 L Blood Pressure [Le ft Arm] Blood Pressure [Le ft Upper Arm] Pulse Oximetry 98 99 97 Oxygen Delivery Me thod Oxygen Flow Rate 04/09/25 03:46 04/09/25 03:51 04/09/25 03:56 Temperature Pulse Rate 86 84 86 Pulse Rate [Left P ulse Oximeter] Pulse Rate [Pulse Oximeter] Respiratory Rate Blood Pressure 112/48 L 122/47 L 118/48 L Blood Pressure [Le ft Arm] Blood Pressure [Le ft Upper Arm] Pulse Oximetry 97 99 99 Oxygen Delivery Me thod Oxygen Flow Rate 04/09/25 03:57 04/09/25 04:00 04/09/25 04:01 Temperature Pulse Rate 88 88 87 Pulse Rate [Left P ulse Oximeter] Pulse Rate [Pulse Oximeter] Respiratory Rate Blood Pressure 119/49 L Blood Pressure [Le ft Arm] Blood Pressure [Le ft Upper Arm] Pulse Oximetry 97 98 98 Oxygen Delivery Me thod Oxygen Flow Rate 04/09/25 04:02 04/09/25 04:06 04/09/25 04:29 Temperature Pulse Rate 88 86 Pulse Rate [Left P ulse Oximeter] Pulse Rate [Pulse Oximeter] Respiratory Rate Blood Pressure 125/54 L Blood Pressure [Le ft Arm] 117/51 L Blood Pressure [Le ft Upper Arm] Pulse Oximetry 98 98 93 Oxygen Delivery Me thod Nasal Cannula Oxygen Flow Rate 2 04/09/25 04:32 04/09/25 04:32 04/09/25 04:33 Temperature 97.7 F Pulse Rate Pulse Rate [Left P ulse Oximeter] Pulse Rate [Pulse Oximeter] 92 Respiratory Rate 18 20 Blood Pressure Blood Pressure [Le ft Arm] 116/50 L Blood Pressure [Le ft Upper Arm] Pulse Oximetry 92 92 92 Oxygen Delivery Me thod Joiner Nasal Ca nnula Nasal Cannula Oxygen Flow Rate 2 2 04/09/25 04:40 04/09/25 04:43 04/09/25 04:50 Temperature Pulse Rate Pulse Rate [Left P ulse Oximeter] Pulse Rate [Pulse Oximeter] 99 Respiratory Rate Blood Pressure Blood Pressure [Le ft Arm] 94/41 L 139/51 L 117/51 L Blood Pressure [Le ft Upper Arm] Pulse Oximetry 95 Oxygen Delivery Me thod Nasal Cannula Oxygen Flow Rate 2 04/09/25 04:56 04/09/25 05:00 04/09/25 05:00 Temperature 98.4 F Pulse Rate Pulse Rate [Left P ulse Oximeter] Pulse Rate [Pulse Oximeter] 97 98 Respiratory Rate 20 Blood Pressure Blood Pressure [Le ft Arm] 134/55 L 134/55 L Blood Pressure [Le ft Upper Arm] Pulse Oximetry 95 96 Oxygen Delivery Me thod Nasal Cannula Oxygen Flow Rate 2 04/09/25 05:30 04/09/25 05:30 04/09/25 06:00 Temperature Pulse Rate Pulse Rate [Left P ulse Oximeter] Pulse Rate [Pulse Oximeter] 95 106 H 105 H Respiratory Rate Blood Pressure Blood Pressure [Le ft Arm] 119/50 L 119/50 L 118/53 L Blood Pressure [Le ft Upper Arm] Pulse Oximetry 96 Oxygen Delivery Me thod Nasal Cannula Oxygen Flow Rate 1 04/09/25 06:00 04/09/25 06:30 04/09/25 06:30 Temperature Pulse Rate Pulse Rate [Left P ulse Oximeter] Pulse Rate [Pulse Oximeter] 104 H 100 92 Respiratory Rate 18 Blood Pressure Blood Pressure [Le ft Arm] 118/53 L 126/52 L 126/52 L Blood Pressure [Le ft Upper Arm] Pulse Oximetry 96 97 Oxygen Delivery Me thod Nasal Cannula Nasal Cannula Oxygen Flow Rate 1 1 04/09/25 07:00 04/09/25 07:00 04/09/25 07:30 Temperature Pulse Rate 96 Pulse Rate [Left P ulse Oximeter] Pulse Rate [Pulse Oximeter] 96 Respiratory Rate Blood Pressure Blood Pressure [Le ft Arm] 113/50 L Blood Pressure [Le ft Upper Arm] Pulse Oximetry 94 93 Oxygen Delivery Me thod Nasal Cannula Oxygen Flow Rate 1 04/09/25 07:30 04/09/25 07:30 Temperature Pulse Rate Pulse Rate [Left P ulse Oximeter] Pulse Rate [Pulse Oximeter] 97 Respiratory Rate Blood Pressure Blood Pressure [Le ft Arm] 125/54 L Blood Pressure [Le ft Upper Arm] Pulse Oximetry 91 93 Oxygen Delivery Me thod Nasal Cannula Oxygen Flow Rate 1 Labs Labs: Laboratory Results - last 24 hr 04/08/25 04/08/25 04/08/25 20:50 22:04 23:10 WBC 15.30 H RBC 4.78 Hgb 14.4 Hct 46.6 MCV 98 MCH 30 MCHC 31 L RDW Coeff of Lynette 14.5 Plt Count 195 Neut % (Auto) 81.1 H Lymph % (Auto) 8.7 L [place] % (Auto) 5.5 Eos % (Auto) 1.7 Baso % (Auto) 0.1 Neut # (Auto) 12.40 H Lymph # (Auto) 1.30 [place] # (Auto) 0.80 Eos # (Auto) 0.30 Baso # (Auto) 0.00 Abs Immat Gran (auto) 0.40 H Imm/Tot Granulo (auto) 2.9 VBG pH 7.444 H VBG pCO2 46 VBG pO2 41.1 VBG HCO3 32 H Sodium 138 Potassium 4.0 Chloride 100 Carbon Dioxide 31 Anion Gap 7 BUN 24 Creatinine 0.3 L Estimated Creat Clear Estimated GFR 109 Glucose 103 Lactate 1.8 Calcium 9.0 Magnesium 2.2 Total Bilirubin 1.5 AST 103 H ALT 107 H Alkaline Phosphatase 176 H Total Creatine Kinase Troponin I < 0.01 Total Protein 6.5 Albumin 4.0 Urine Color Yellow Urine Appearance Cloudy A Urine pH 5.5 Ur Specific [place] 1.020 Urine Protein 1+ A Urine Glucose (UA) Negative Urine Ketones Negative Urine Blood 2+ A Urine Nitrite Positive A Urine Bilirubin Negative Urine Urobilinogen 0.2 Ur Leukocyte Esterase 2+ A Urine RBC 2-5 A Urine WBC 10-25 A Urine WBC Clumps Few A Ur Squamous Epith Cells Few Amorphous Sediment Moderate A Urine Bacteria Many A Urine Yeast Many A SARS-CoV-2 (PCR) Negative SARS-CoV-2 Influenza Type A (PCR) Negative PCR FLU A Influenza Type B (PCR) Negative PCR FLU B RSV (PCR) Negative PCR RSV 04/09/25 04/09/25 02:05 07:12 WBC 16.95 H RBC 3.99 L Hgb 12.1 Hct 40.3 MCV 101 H MCH 30 MCHC 30 L RDW Coeff of Lynette 15.1 Plt Count 209 Neut % (Auto) 82.4 H Lymph % (Auto) 10.5 L [place] % (Auto) 4.6 Eos % (Auto) 1.5 Baso % (Auto) 0.2 Neut # (Auto) 14.00 H Lymph # (Auto) 1.80 [place] # (Auto) 0.80 Eos # (Auto) 0.30 Baso # (Auto) 0.00 Abs Immat Gran (auto) 0.10 Imm/Tot Granulo (auto) 0.8 VBG pH 7.336 VBG pCO2 48 VBG pO2 81.3 H VBG HCO3 26 Sodium 140 Potassium 2.9 L* Chloride 109 Carbon Dioxide 24 Anion Gap 7 BUN 18 Creatinine 0.3 L Estimated Creat Clear 33.30 Estimated GFR 109 Glucose 101 Lactate 0.9 Calcium 7.4 L Magnesium Total Bilirubin 0.9 AST 58 H ALT 68 H Alkaline Phosphatase 134 Total Creatine Kinase 26 L Troponin I Total Protein 4.9 L Albumin 2.8 L Urine Color Urine Appearance Urine pH Ur Specific [place] Urine Protein Urine Glucose (UA) Urine Ketones Urine Blood Urine Nitrite Urine Bilirubin Urine Urobilinogen Ur Leukocyte Esterase Urine RBC Urine WBC Urine WBC Clumps Ur Squamous Epith Cells Amorphous Sediment Urine Bacteria Urine Yeast SARS-CoV-2 (PCR) Influenza Type A (PCR) Influenza Type B (PCR) RSV (PCR)
[2025-04-09] MEDS: POTASSIUM CHLORIDE 10 MEQ/100 ML PIGGYBACK 70 MEQ IVPB ×3 (08:40→11:39)
[2025-04-09] MEDS: ACETAMINOPHEN 325 MG TABLET 650 MG PO ×2 (08:42→19:40)
[2025-04-09] MEDS: POTASSIUM BICARB 25 MEQ EFFERVESCENT TAB 50 MEQ PO (11:25)
[2025-04-09] MEDS: GABAPENTIN 300 MG CAPSULE PO ×3 (11:29→20:43)
[2025-04-09] MEDS: POTASSIUM CHLORIDE 10 MEQ/100 ML PIGGYBACK 60 MEQ IVPB (13:47)
[2025-04-09 16:43] LABS: Potassium* 4.5 mmol/L (3.6-5.1)
[2025-04-09] MEDS: POTASSIUM CHLORIDE 10 MEQ CAPSULE ER 20 MEQ PO (17:51)
--- NOTE | 2025-04-09 18:15 | PC.NURSE ---
Shift Summary: patient pleasant and cooperative. Bedbound, T&R q2h and PRN, Mepilex over coccyx changed x1 during shift, per patient dressing is changed mon/fri/fri by home care. Has Buprenorphine patch on right shoulder from home, per patient applied 04/06 and is changed weekly, MD made aware. Norepi titrated down to 0.02mcg/kg/min, attempted to take off drip however BP decreased and MAP <65, norepi restarted @ 0.02mcg/kg/min. Labs done @ 1600, potassium WNL. O2 sats 88-95% with o2 @ 0.5-1L/NC. Tele shows NSR, HR 90-100's. Pain managed with PRN medication and repositioning, pillows behind back and under bilat legs. Tolerating regular diet, denied nausea.
[2025-04-10] VITALS (17 sets, daily range): BP systolic 118–209; BP diastolic 54–100; PULSE 76–138; RESP 18–20; TEMP 35.3–36.7; O2SAT 89–98
[2025-04-10] MEDS: DAPTOmycin 50 MG/ML inj 420 MG IVP (01:24)
[2025-04-10] MEDS: SODIUM CHLORIDE 0.9 % (FLUSH) 10 ML SYRINGE 5 ML IVF ×6 (01:24→20:56)
[2025-04-10] MEDS: ACETAMINOPHEN 325 MG TABLET 650 MG PO (05:36)
[2025-04-10] MEDS: HYDROCORTISONE SOD SUCCINATE 50 MG/ML inj IVP ×3 (05:38→20:35)
[2025-04-10] MEDS: PANTOPRAZOLE SODIUM 40 MG INJ IVP (05:38)
[2025-04-10] MEDS: SODIUM CHLORIDE MINI 0.9% IVPB ×2 (05:53→18:11)
[2025-04-10] MEDS: MEROPENEM IVPB ×2 (05:53→18:11)
[2025-04-10 06:11] LABS: Ionized Calcium* 1.10 mmol/L (1.11-1.30)
--- NOTE | 2025-04-10 06:18 | PC.NURSE ---
Pt is alert and oriented x3. Afebrile. Pt reports 6-8/10 back, hip and shoulder pain, managed with PRN medications. Pt was weaned off Norepi drip around 1999 and is tolerating well. Pt MAP have all been >70. Pt wore BiPAP for half of night. Pt was turned and repositioned throughout night. ?
[2025-04-10 06:22] LABS: Hematocrit 38.3 % (33.0-51.0); Hemoglobin* 11.5 gm/dL (12.0-16.0); Immature Granulocytes Abs Auto 0.10 K/uL (0.00-0.30); Immature Granulocytes Pct Auto 0.9 %; Mean Corpuscular HGB Conc 30 gm/dL (32-36); Mean Corpuscular Hemoglobin 30 pg (26-34); Mean Corpuscular Volume 101 fL (80-100); RDW Coefficient of Variation % 15.3 % (11.5-15.5); Red Blood Count 3.79 m/uL (4.00-5.20); White Blood Count* 11.53 K/uL (4.50-11.00)
[2025-04-10 06:24] LABS: Lymphocytes Absolute Auto 1.00 K/uL (0.90-2.90); Slide Review Reflex No
[2025-04-10 06:38] LABS: Chloride* 112 mmol/L (96-114)
[2025-04-10 06:39] LABS: Albumin* 2.8 g/dL (3.3-5.0); Potassium* 4.6 mmol/L (3.6-5.1); Sodium* 141 mmol/L (135-149)
[2025-04-10 06:41] LABS: Alanine Aminotransferase* 48 U/L (4-35); Anion Gap 6 mEq/L (7-15); Aspartate Amino Transferase* 31 U/L (12-35); Blood Urea Nitrogen* 13 mg/dL (7-30); Carbon Dioxide* 23 mmol/L (20-32); Creatinine* 0.3 mg/dL (0.5-1.5); Est. Creatinine Clearance* 33.30; Estimated Glomerular Filt Rate 109 ml/min; Total Protein* 4.9 g/dL (6.0-8.3)
[2025-04-10 06:42] LABS: Alkaline Phosphatase* 120 U/L (40-150); Bilirubin Total* 0.8 mg/dL (0.1-1.5); Calcium* 7.9 mg/dL (8.4-10.6); Glucose* 94 mg/dL (60-115)
--- NOTE | 2025-04-10 07:16 | P.IMPN_ITS ---
Assessment and Plan Assessment and plan (1) Septic shock: Problem comment: - presented with BPs 80s/30s, HR 130s decreased mentation, temperature of 102 - required Norepinephrine via central line to keep MAP >65, tapered off of this 04/09 - Meropenem and Daptomycin (04/09), d/c Daptomycin 04/10 given E Coli in urine and blood (awaiting formal sensitivities) Status: Acute (2) Sepsis: Problem comment: - likely UTI per above Status: Acute (3) Hypokalemia: Problem comment: - replace and follow - Magnesium wnl Status: Acute (4) Pressure ulcer of right buttock, stage 4: Problem comment: - with radiographic concerns of chronic osteomyelitis - appeared noninfected in ER, wound care/dressing change due 04/11 Status: Acute (5) Type 2 diabetes mellitus: Problem comment: - diet controlled, current A1C 6.3 (03/2025) - accuchecks Status: Acute (6) COPD (chronic obstructive pulmonary disease): Problem comment: - chronic overlay with central sleep apnea and hypoventilation given long standing paraplegia - previously has used BIPAP during hospital stays at night Status: Acute (7) Neurogenic bladder: Problem comment: - chronic indwelling delacruz - replaced in ER 04/09/25 Status: Chronic (8) Chronic, continuous use of opioids: Problem comment: - takes hydromorphone as an outpatient given chronic pain (hips, shoulders) - has been on Suboxone in the past as well Status: Acute (9) Paraplegia: Problem comment: - since age 6; 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 Status: Chronic (10) Colostomy status: Problem comment: - diverting colostomy 05/2024 2/2 chronic constipation/obstruction and chronic sacral wounds Status: Acute (11) Elevated LFTs: Problem comment: - 04/08: AST 103, ALT 107, alk phos 176, reassuring imaging - 04/09: trending downward, continue to follow - 04/10: alk phos and AST normalized, mild elevation of ALT at 48 Status: Acute Plan - per above (IV abx, IVF as needed to keep UOP >30mL/hr, follow cultures) - will require 72 hours of negative blood cultures prior to consideration of d /c - start therapies 04/11 Subjective Date Seen: 04/10/25 Interval history: Mary is a 79 yo female with paraplegia 2/2 transverse myelitis, chronic sacral wounds with radiographic concerns for chronic osteomyelitis, chronic indwelling delacruz catheter, and diverting colostomy, admitted to the CCU on 04/09 for septic shock. She presented to the ER with abdominal pain and decreased mentation; Daptomycin and Meropenem initiated for antibiotic therapy. Required pressor support with Norepinephrine through R femoral central line that was placed in ER. Source likely UTI; both blood and urine cultures collected late 04/08 are growing GNRs. Overnight, she was weaned off Norepinephrine. BP this morning is 153/72, P 91. She is not requiring supplemental oxygen. UOP 35mL/hr over past 24hours. Mary is still feeling achy this morning, no other concerns. Thinks she's ready to start eating today. Restarting Metoprolol given improvement in BP (150s/70s); on this for Essential HTN and history of sinus tachycardia. Exam Narrative: Exam Narrative: GEN: Alert and oriented, laying comfortably in bed HEENT: EOMIs bilaterally, no scleral icterus CV: RRR, + systolic murmur, unchanged R: Decreased bibasilar breath sounds Ext: Thin extremities, mild edema B hands Skin: No concerning skin findings on exposed skin, sacral wound not fully exposed (dressing to be changed 04/11) but no erythema beyond dressing noted Neuro: Baseline Psych: Appropriate Const: Vital Signs, click to edit/add: Vital Signs - 24 hr 04/09/25 07:30 04/09/25 07:30 04/09/25 07:30 Temperature Pulse Rate 96 Pulse Rate [Pulse Oximeter] 97 Respiratory Rate Blood Pressure [Le ft Arm] 125/54 L Pulse Oximetry 91 93 Oxygen Delivery Me thod Nasal Cannula Oxygen Flow Rate 1 04/09/25 07:56 04/09/25 07:56 04/09/25 08:00 Temperature 98.2 F Pulse Rate Pulse Rate [Pulse Oximeter] 99 96 Respiratory Rate 18 18 Blood Pressure [Le ft Arm] 125/54 L 133/56 L Pulse Oximetry 90 92 89 Oxygen Delivery Me thod Nasal Cannula Nasal Cannula Nasal Cannula Oxygen Flow Rate 0.5 0.5 0.5 04/09/25 08:30 04/09/25 08:51 04/09/25 09:04 Temperature 98.1 F Pulse Rate Pulse Rate [Pulse Oximeter] 97 104 H 95 Respiratory Rate 18 Blood Pressure [Le ft Arm] 123/50 L 136/60 123/51 L Pulse Oximetry 94 93 94 Oxygen Delivery Me thod Nasal Cannula Nasal Cannula Nasal Cannula Oxygen Flow Rate 1 1 1 04/09/25 09:18 04/09/25 09:30 04/09/25 10:00 Temperature Pulse Rate Pulse Rate [Pulse Oximeter] 99 96 Respiratory Rate Blood Pressure [Le ft Arm] 128/51 L 129/55 L 122/53 L Pulse Oximetry 91 94 93 Oxygen Delivery Me thod Nasal Cannula Nasal Cannula Nasal Cannula Oxygen Flow Rate 1 1 1 04/09/25 10:30 04/09/25 11:00 04/09/25 11:00 Temperature 98.3 F 98.3 F Pulse Rate Pulse Rate [Pulse Oximeter] 95 94 97 Respiratory Rate 18 18 Blood Pressure [Le ft Arm] 126/52 L 128/51 L 128/51 L Pulse Oximetry 94 94 94 Oxygen Delivery Me thod Nasal Cannula Nasal Cannula Nasal Cannula Oxygen Flow Rate 1 1 1 04/09/25 11:00 04/09/25 11:30 04/09/25 11:54 Temperature Pulse Rate 95 Pulse Rate [Pulse Oximeter] 98 104 H Respiratory Rate Blood Pressure [Le ft Arm] 139/63 114/49 L Pulse Oximetry 94 90 Oxygen Delivery Me thod Nasal Cannula Nasal Cannula Oxygen Flow Rate 1 0.5 04/09/25 12:00 04/09/25 12:15 04/09/25 12:30 Temperature Pulse Rate Pulse Rate [Pulse Oximeter] 101 H 109 H 102 H Respiratory Rate Blood Pressure [Le ft Arm] 119/50 L 132/59 L 134/55 L Pulse Oximetry 92 94 94 Oxygen Delivery Me thod Nasal Cannula Nasal Cannula Nasal Cannula Oxygen Flow Rate 0.05 0.05 1 04/09/25 13:00 04/09/25 13:30 04/09/25 14:00 Temperature 97.2 F L 97.5 F L Pulse Rate Pulse Rate [Pulse Oximeter] 106 H 104 H 103 H Respiratory Rate 18 20 Blood Pressure [Le ft Arm] 113/49 L 123/49 L 141/61 H Pulse Oximetry 93 97 97 Oxygen Delivery Me thod Nasal Cannula Nasal Cannula Nasal Cannula Oxygen Flow Rate 0.5 0.5 0.5 04/09/25 14:15 04/09/25 14:30 04/09/25 14:45 Temperature Pulse Rate Pulse Rate [Pulse Oximeter] 100 97 96 Respiratory Rate Blood Pressure [Le ft Arm] 115/48 L 120/53 L 123/49 L Pulse Oximetry 91 93 89 Oxygen Delivery Me thod Room Air Nasal Cannula Nasal Cannula Oxygen Flow Rate 0.5 0.5 04/09/25 14:46 04/09/25 14:50 04/09/25 14:56 Temperature Pulse Rate 96 Pulse Rate [Pulse Oximeter] Respiratory Rate 20 Blood Pressure [Le ft Arm] Pulse Oximetry 88 95 Oxygen Delivery Me thod Nasal Cannula Oxygen Flow Rate 0.5 04/09/25 15:00 04/09/25 15:06 04/09/25 15:15 Temperature Pulse Rate Pulse Rate [Pulse Oximeter] 97 98 100 Respiratory Rate Blood Pressure [Le ft Arm] 124/54 L 124/54 L 128/56 L Pulse Oximetry 96 91 95 Oxygen Delivery Me thod Nasal Cannula Nasal Cannula Nasal Cannula Oxygen Flow Rate 0.5 0.5 0.5 04/09/25 15:30 04/09/25 16:10 04/09/25 16:15 Temperature 97.8 F Pulse Rate Pulse Rate [Pulse Oximeter] 100 98 Respiratory Rate 18 Blood Pressure [Le ft Arm] 128/62 134/54 L 126/55 L Pulse Oximetry 93 Oxygen Delivery Me thod Nasal Cannula Oxygen Flow Rate 0.5 04/09/25 16:30 04/09/25 16:45 04/09/25 17:00 Temperature Pulse Rate Pulse Rate [Pulse Oximeter] 99 101 H 95 Respiratory Rate Blood Pressure [Le ft Arm] 130/58 L 121/55 L 130/60 Pulse Oximetry 90 91 93 Oxygen Delivery Me thod Nasal Cannula Nasal Cannula Nasal Cannula Oxygen Flow Rate 0.5 1 0.5 04/09/25 17:30 04/09/25 17:45 04/09/25 18:00 Temperature 97.6 F Pulse Rate Pulse Rate [Pulse Oximeter] 99 101 H 100 Respiratory Rate 20 Blood Pressure [Le ft Arm] 127/53 L 128/48 L 132/55 L Pulse Oximetry 95 95 94 Oxygen Delivery Me thod Nasal Cannula Nasal Cannula Nasal Cannula Oxygen Flow Rate 0.5 0.5 0.5 04/09/25 18:15 04/09/25 18:30 04/09/25 18:45 Temperature Pulse Rate Pulse Rate [Pulse Oximeter] 101 H 101 H Respiratory Rate Blood Pressure [Le ft Arm] 116/45 L 123/48 L 124/44 L Pulse Oximetry 88 Oxygen Delivery Me thod Nasal Cannula Oxygen Flow Rate 0.5 04/09/25 19:00 04/09/25 19:10 04/09/25 19:30 Temperature 97.5 F L Pulse Rate 101 H Pulse Rate [Pulse Oximeter] 99 109 H Respiratory Rate 20 Blood Pressure [Le ft Arm] 140/68 H 124/56 L Pulse Oximetry 95 95 Oxygen Delivery Me thod Nasal Cannula Nasal Cannula Oxygen Flow Rate 0.5 0.5 04/09/25 19:41 04/09/25 19:45 04/09/25 19:50 Temperature Pulse Rate Pulse Rate [Pulse Oximeter] 106 H 103 H 104 H Respiratory Rate Blood Pressure [Le ft Arm] 128/60 137/59 L 141/63 H Pulse Oximetry 93 96 Oxygen Delivery Me thod Nasal Cannula Nasal Cannula Oxygen Flow Rate 0.5 0.5 04/09/25 19:55 04/09/25 20:00 04/09/25 20:00 Temperature Pulse Rate Pulse Rate [Pulse Oximeter] 97 98 100 Respiratory Rate 20 Blood Pressure [Le ft Arm] 137/59 L 131/56 L Pulse Oximetry 96 Oxygen Delivery Me thod Room Air Oxygen Flow Rate 0.5 04/09/25 20:00 04/09/25 20:05 04/09/25 20:15 Temperature Pulse Rate Pulse Rate [Pulse Oximeter] 100 100 100 Respiratory Rate Blood Pressure [Le ft Arm] 128/65 126/58 L 129/58 L Pulse Oximetry Oxygen Delivery Me thod Oxygen Flow Rate 04/09/25 20:21 04/09/25 20:25 04/09/25 20:30 Temperature 97.6 F Pulse Rate Pulse Rate [Pulse Oximeter] 103 H 97 98 Respiratory Rate 18 Blood Pressure [Le ft Arm] 121/54 L 121/54 L 109/77 Pulse Oximetry 96 97 Oxygen Delivery Me thod Nasal Cannula Nasal Cannula Oxygen Flow Rate 0.5 0.5 04/09/25 20:37 04/09/25 20:45 04/09/25 21:00 Temperature Pulse Rate Pulse Rate [Pulse Oximeter] 98 96 95 Respiratory Rate 18 18 Blood Pressure [Le ft Arm] 121/56 L 110/58 L 127/58 L Pulse Oximetry 94 92 Oxygen Delivery Me thod Room Air Room Air Oxygen Flow Rate 04/09/25 21:15 04/09/25 21:33 04/09/25 22:00 Temperature Pulse Rate Pulse Rate [Pulse Oximeter] 99 97 94 Respiratory Rate Blood Pressure [Le ft Arm] 121/60 120/55 L 131/63 Pulse Oximetry 88 Oxygen Delivery Me thod Room Air Oxygen Flow Rate 04/09/25 22:30 04/09/25 23:00 04/09/25 23:00 Temperature Pulse Rate 99 Pulse Rate [Pulse Oximeter] 100 97 Respiratory Rate Blood Pressure [Le ft Arm] 125/50 L 134/56 L Pulse Oximetry 92 Oxygen Delivery Me thod Nasal Cannula Oxygen Flow Rate 0.5 04/09/25 23:00 04/09/25 23:00 04/09/25 23:30 Temperature Pulse Rate Pulse Rate [Pulse Oximeter] 97 Respiratory Rate 18 Blood Pressure [Le ft Arm] 146/60 H Pulse Oximetry 92 93 95 Oxygen Delivery Me thod Room Air Nasal Cannula Oxygen Flow Rate 0.5 0.5 04/10/25 00:00 04/10/25 00:00 04/10/25 00:01 Temperature 97.6 F Pulse Rate Pulse Rate [Pulse Oximeter] 109 H 97 109 H Respiratory Rate 20 18 Blood Pressure [Le ft Arm] 155/66 H 155/63 H Pulse Oximetry 89 93 Oxygen Delivery Me thod BiPAP Room Air Oxygen Flow Rate 04/10/25 02:00 04/10/25 03:00 04/10/25 04:00 Temperature Pulse Rate 76 Pulse Rate [Pulse Oximeter] 90 91 Respiratory Rate 18 Blood Pressure [Le ft Arm] 118/54 L 156/68 H Pulse Oximetry 89 92 Oxygen Delivery Me thod BiPAP Room Air Oxygen Flow Rate 0.5 04/10/25 04:00 04/10/25 06:00 Temperature Pulse Rate Pulse Rate [Pulse Oximeter] 91 91 Respiratory Rate 18 Blood Pressure [Le ft Arm] 153/72 H Pulse Oximetry 98 Oxygen Delivery Me thod Room Air Oxygen Flow Rate Labs Labs: Laboratory Results - last 24 hr 04/08/25 04/09/25 04/09/25 23:10 07:12 16:25 WBC 16.95 H RBC 3.99 L Hgb 12.1 Hct 40.3 MCV 101 H MCH 30 MCHC 30 L RDW Coeff of Lynette 15.1 Plt Count 209 Neut % (Auto) 82.4 H Lymph % (Auto) 10.5 L Hunt % (Auto) 4.6 Eos % (Auto) 1.5 Baso % (Auto) 0.2 Neut # (Auto) 14.00 H Lymph # (Auto) 1.80 Hunt # (Auto) 0.80 Eos # (Auto) 0.30 Baso # (Auto) 0.00 Abs Immat Gran (auto) 0.10 Imm/Tot Granulo (auto) 0.8 Sodium 140 Potassium 2.9 L* 4.5 Chloride 109 Carbon Dioxide 24 Anion Gap 7 BUN 18 Creatinine 0.3 L Estimated Creat Clear 33.30 Estimated GFR 109 Glucose 101 Hemoglobin A1c 6.3 H Calcium 7.4 L Ionized Calcium Jailene Magnesium Total Bilirubin 0.9 AST 58 H ALT 68 H Alkaline Phosphatase 134 Total Creatine Kinase 26 L Total Protein 4.9 L Albumin 2.8 L Urine Trichomonas Not Reportable Lab Acknowledgement Test Added 04/10/25 05:45 WBC 11.53 H RBC 3.79 L Hgb 11.5 L Hct 38.3 MCV 101 H MCH 30 MCHC 30 L RDW Coeff of Lynette 15.3 Plt Count 178 Neut % (Auto) 85.0 H Lymph % (Auto) 9.0 L Hunt % (Auto) 3.8 Eos % (Auto) 1.1 Baso % (Auto) 0.2 Neut # (Auto) 9.80 H Lymph # (Auto) 1.00 Hunt # (Auto) 0.40 Eos # (Auto) 0.10 Baso # (Auto) 0.00 Abs Immat Gran (auto) 0.10 Imm/Tot Granulo (auto) 0.9 Sodium 141 Potassium 4.6 Chloride 112 Carbon Dioxide 23 Anion Gap 6 L BUN 13 Creatinine 0.3 L Estimated Creat Clear 33.30 Estimated GFR 109 Glucose 94 Hemoglobin A1c Calcium 7.9 L Ionized Calcium Jailene 1.10 L Magnesium 1.9 Total Bilirubin 0.8 AST 31 ALT 48 H Alkaline Phosphatase 120 Total Creatine Kinase Total Protein 4.9 L Albumin 2.8 L Urine Trichomonas Lab Acknowledgement
[2025-04-10] MEDS: POTASSIUM CHLORIDE 10 MEQ CAPSULE ER 20 MEQ PO ×2 (08:16→19:19)
[2025-04-10] MEDS: GABAPENTIN 300 MG CAPSULE PO ×3 (08:16→20:35)
[2025-04-10] MEDS: CALCIUM GLUC 1,000MG/50 ML 1,000 MG/50 ML BAG 100 MG IVPB (08:30)
[2025-04-10] MEDS: LACTATED RINGERS 1000 ML 1,000 ML 125 ML IV (08:30)
[2025-04-10] MEDS: HEPARIN 500 UNIT/5 ML SYRINGE IVF ×3 (08:31→20:36)
[2025-04-10] MEDS: METOPROLOL SUCCINATE (XL) 50 MG TAB PO (09:18)
[2025-04-10] MEDS: LACTATED RINGERS 500 ML 500 ML IV (12:40)
--- NOTE | 2025-04-10 19:29 | PC.NURSE ---
Nursing Care Hours: [id number] Pt calm and cooperative, alert and oriented. Pt had episode of prolonged tachycardia reaching 140's. Restarted on home metoprolol and pain treated. Tx effective. IV fluids started for low u/o. 500ml bolus received over 1 hour for low u/o this morning. Immediately post bolus, pt c/o SOB. Per pt request, wanted to be repositioned to side and pt stated this helpful. spo2 sats moving between 83-90%. Pt unable to tolerated HOB elevated greater than 30 degrees d/t back pain. Bilat legs elevated above level of heart for back pain relief as well. Pt refused home bipap d/t it is uncomfortable after educated on benefits. Using IS Q2H with rewriter in the room, hitting 500. Edema in L hand increasing over shift and elevated on pillow. R hand started to become edematous. Grey Percher updated evening hospitalist. Low u/o this afternoon. Bladder scan showed no retention. Central line heparin locked when not in use. No dressing change to glute required. Turn and repo with 2 assist. Pt refused oral cares stating not right now'. Aure care done with soapy cloth.
[2025-04-10] MEDS: FUROSEMIDE 10 MG/ML inj 20 MG IVP (20:54)
[2025-04-10 21:11] LABS: NT Pro B Type NatriureticPept* 1950 pg/mL (See Note)
[2025-04-11] VITALS (12 sets, daily range): BP systolic 157–208; BP diastolic 74–107; PULSE 61–111; RESP 14–20; TEMP 35.4–37; O2SAT 91–96; BMI 28.2
[2025-04-11] MEDS: PANTOPRAZOLE SODIUM 40 MG INJ IVP (05:18)
[2025-04-11] MEDS: HYDROCORTISONE SOD SUCCINATE 50 MG/ML inj IVP (05:19)
[2025-04-11] MEDS: SODIUM CHLORIDE 0.9 % (FLUSH) 10 ML SYRINGE 5 ML IVF ×3 (05:19→20:32)
--- NOTE | 2025-04-11 05:36 | PC.NURSE ---
[id number] Pt HR tachy at beginning of shift, 120's, sob, lasix given, as of time this note written, 1350cc urine output since administration, hr <90 bpm and denies sob at rest. repositioned q2-3 hrs throughout the night. c/o chronic shoulder pain, prn pain medication administered with some relief. Pt slept most of the night with home bipap on, requested it be taken off approx 0500. delacruz and ostromy patent and draining
[2025-04-11] MEDS: MEROPENEM IVPB ×2 (06:24→18:18)
[2025-04-11] MEDS: SODIUM CHLORIDE MINI 0.9% IVPB ×2 (06:24→18:18)
[2025-04-11 06:41] LABS: Ionized Calcium* 1.18 mmol/L (1.11-1.30)
[2025-04-11 06:54] LABS: Hematocrit 38.6 % (33.0-51.0); Hemoglobin* 11.7 gm/dL (12.0-16.0); Immature Granulocytes Pct Auto 1.1 %; Mean Corpuscular HGB Conc 30 gm/dL (32-36); Mean Corpuscular Hemoglobin 30 pg (26-34); Mean Corpuscular Volume 100 fL (80-100); RDW Coefficient of Variation % 15.3 % (11.5-15.5); Red Blood Count 3.87 m/uL (4.00-5.20); White Blood Count* 12.21 K/uL (4.50-11.00)
[2025-04-11 06:55] LABS: Immature Granulocytes Abs Auto 0.10 K/uL (0.00-0.30); Lymphocytes Absolute Auto 1.50 K/uL (0.90-2.90); Slide Review Reflex No
[2025-04-11 07:03] LABS: Albumin* 3.1 g/dL (3.3-5.0); Chloride* 109 mmol/L (96-114); Sodium* 139 mmol/L (135-149)
[2025-04-11 07:04] LABS: Potassium* 4.3 mmol/L (3.6-5.1)
[2025-04-11 07:06] LABS: Alanine Aminotransferase* 37 U/L (4-35); Alkaline Phosphatase* 115 U/L (40-150); Anion Gap 4 mEq/L (7-15); Aspartate Amino Transferase* 21 U/L (12-35); Bilirubin Total* 0.8 mg/dL (0.1-1.5); Blood Urea Nitrogen* 15 mg/dL (7-30); Calcium* 8.9 mg/dL (8.4-10.6); Carbon Dioxide* 26 mmol/L (20-32); Creatinine* 0.3 mg/dL (0.5-1.5); Est. Creatinine Clearance* 33.30; Estimated Glomerular Filt Rate 109 ml/min; Glucose* 108 mg/dL (60-115); Total Protein* 5.2 g/dL (6.0-8.3)
[2025-04-11 07:19] LABS: NT Pro B Type NatriureticPept* 4760 pg/mL (See Note)
[2025-04-11] MEDS: POTASSIUM CHLORIDE 10 MEQ CAPSULE ER 20 MEQ PO ×2 (07:58→18:19)
[2025-04-11] MEDS: HEPARIN 500 UNIT/5 ML SYRINGE IVF ×3 (07:59→20:30)
[2025-04-11] MEDS: METOPROLOL SUCCINATE (XL) 50 MG TAB PO (08:02)
--- NOTE | 2025-04-11 08:02 | PM.IMPN1 ---
Assessment and Plan Assessment and plan (1) Septic shock: Problem comment: - presented with BPs 80s/30s, HR 130s decreased mentation, temperature of 102 - required Norepinephrine via central line to keep MAP >65, tapered off of this 04/09 in the evening - Meropenem and Daptomycin (04/09), d/c Daptomycin 04/10 given E Coli in urine and blood Status: Acute (2) Sepsis: Problem comment: - 2/2 E Coli UTI Status: Acute (3) Pressure ulcer of right buttock, stage 4: Problem comment: - with radiographic concerns of chronic osteomyelitis - appeared noninfected in ER, wound care following, dressing change completed 04/11 (typically has dressing changed thrice weekly at home) Status: Acute (4) Type 2 diabetes mellitus: Problem comment: - diet controlled, current A1C 6.3 (03/2025) - accuchecks Status: Acute (5) COPD (chronic obstructive pulmonary disease): Problem comment: - chronic overlay with central sleep apnea and hypoventilation given long standing paraplegia - previously has used BIPAP during hospital stays at night Status: Acute (6) Neurogenic bladder: Problem comment: - chronic indwelling delacruz - replaced in ER 04/09/25 Status: Chronic (7) Chronic, continuous use of opioids: Problem comment: - takes hydromorphone as an outpatient given chronic pain (hips, shoulders) - has been on Suboxone in the past as well Status: Acute (8) Paraplegia: Problem comment: - since age 6; 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 Status: Chronic (9) Colostomy status: Problem comment: - diverting colostomy 05/2024 2/2 chronic constipation/obstruction and chronic sacral wounds Status: Acute Plan - continue daily blood cultures, IV abx - TTE today given IVF resuscitation, murmur, and edema - to evaluate LVEF - home medications for comorbidities - Lovenox for ppx - likely medically ready for d/c in 2-3 more days, pending blood cultures and clinical course Subjective Date Seen: 04/11/25 Interval history: Mary is a 79 yo female with paraplegia 2/2 transverse myelitis, chronic sacral wounds with radiographic concerns for chronic osteomyelitis, chronic indwelling delacruz catheter, and diverting colostomy, admitted to the CCU on 04/09 for septic shock 2/2 UTI. She presented to the ER with abdominal pain and decreased mentation; Daptomycin and Meropenem initiated for antibiotic therapy. Required pressor support with Norepinephrine through R femoral central line that was placed in ER. Norepinephrine administered until 2100 on 04/09. Urine and blood cultures collected on 04/08 are both growing E Coli, sensitive to Meropenem (Daptomycin discontinued on 04/10). Subsequent blood cultures have been negative. Has started having more hypertension over the last 24 hours; home Metoprolol and Furosemide restarted 04/10. This morning, has a mild headache. Feels like she could start eating and have therapy assessments. Wound care consulting for sacral wound dressing change today. Exam Narrative: Exam Narrative: GEN: Alert and oriented, laying comfortably in bed and answering questions appropriately HEENT: EOMIs bilaterally, no scleral icterus CV: RRR, + systolic murmur R: Decreased bibasilar breath sounds Ext: Thin lower extremities without edema, mild edema of bilateral hands Skin: Sacral wound visualized during wound care visit, no evidence of infection, no concerning drainage Neuro: Baseline for comorbidities Psych: Appropriate Const: Vital Signs, click to edit/add: Vital Signs - 24 hr 04/10/25 09:00 04/10/25 14:55 04/10/25 15:00 Temperature 97.9 F Pulse Rate 138 H Pulse Rate [Pulse Oximeter] 101 H Respiratory Rate 20 Blood Pressure [ri ght FA] 180/90 H Pulse Oximetry 93 92 Oxygen Delivery Me thod Room Air 04/10/25 15:00 04/10/25 15:00 04/10/25 16:00 Temperature Pulse Rate 103 H Pulse Rate [Pulse Oximeter] 101 H Respiratory Rate 20 20 Blood Pressure [ri ght FA] Pulse Oximetry 92 Oxygen Delivery Me thod Room Air 04/10/25 20:10 04/10/25 22:39 04/10/25 22:39 Temperature 95.5 F L Pulse Rate Pulse Rate [Pulse Oximeter] 122 H Respiratory Rate 20 20 Blood Pressure [ri ght FA] 209/100 H Pulse Oximetry 90 93 92 Oxygen Delivery La thod Room Air Room Air BiPAP 04/10/25 23:00 04/10/25 23:39 04/11/25 03:00 Temperature 95.8 F L Pulse Rate 89 Pulse Rate [Pulse Oximeter] 86 61 Respiratory Rate 20 20 Blood Pressure [ri ght FA] 176/92 H 181/92 H Pulse Oximetry 95 92 Oxygen Delivery Me thod Room Air BiPAP Room Air BiPAP Labs Labs: Laboratory Results - last 24 hr 04/10/25 04/11/25 05:45 06:24 WBC 12.21 H RBC 3.87 L Hgb 11.7 L Hct 38.6 MCV 100 MCH 30 MCHC 30 L RDW Coeff of Lynette 15.3 Plt Count 237 Neut % (Auto) 77.9 H Lymph % (Auto) 12.5 L [place] % (Auto) 6.6 Eos % (Auto) 1.7 Baso % (Auto) 0.2 Neut # (Auto) 9.50 H Lymph # (Auto) 1.50 [place] # (Auto) 0.80 Eos # (Auto) 0.20 Baso # (Auto) 0.00 Abs Immat Gran (auto) 0.10 Imm/Tot Granulo (auto) 1.1 Sodium 139 Potassium 4.3 Chloride 109 Carbon Dioxide 26 Anion Gap 4 L BUN 15 Creatinine 0.3 L Estimated Creat Clear 33.30 Estimated GFR 109 Glucose 108 Calcium 8.9 Ionized Calcium Jailene 1.18 Magnesium 1.9 Total Bilirubin 0.8 AST 21 ALT 37 H Alkaline Phosphatase 115 NT-Pro-B Natriuret Pep 1950 H 4760 H Total Protein 5.2 L Albumin 3.1 L Lab Acknowledgement Test Added
[2025-04-11] MEDS: ACETAMINOPHEN 325 MG TABLET 650 MG PO (08:04)
--- NOTE | 2025-04-11 08:58 | REH.SLP ---
EXTRACTOR [employer]PERATOR HELPER orders recieved, chart reviewed and discussed case with RN and MD. Mary is tolerating a regular diet with thin liquids. She has a history of paralyzed vocal cord and is aware of safe swallow strategies. No speech eval indicated. Will complete order.
[2025-04-11] MEDS: SENNOSIDES 1 TAB TABLET PO (09:13)
[2025-04-11] MEDS: GABAPENTIN 300 MG CAPSULE PO ×3 (09:13→20:36)
[2025-04-11] MEDS: FUROSEMIDE 20 MG TABLET PO (09:13)
--- NOTE | 2025-04-11 10:57 | REH.PT ---
PT orders received, after discussion with pt, pt is at baseline no skilled PT is needed at this time.
[2025-04-11] MEDS: AMLODIPINE 5 MG TABLET PO (13:02)
--- NOTE | 2025-04-11 13:32 | PM.IMCN1 ---
Date of Consult Patient: [facility] Patient Consult date: 04/11/25 Requesting Physician: Other (wound care) Primary Care Provider: Flo Mckeon MD Consult Narrative Reason for consult: Pressure gluteal wound Narrative: Prerna Major is a 79 year old female who presents to the hospital for sepsis. Patient is currently getting worked up. Patient is known to [facility]. Patient is currently receiving wound care from [facility]. Patient reports that they have been coming out to the house once a month to evaluate her. Patient then has home care coming out to 3 times week to change dressing. Patient states that this spring she did receive some skin substitutes to aid in healing. Patient is currently on an offloading mattress. Patient is currently doing Mepilex with collagen. Review of Systems Const: Reports: chills; Denies: fever (today. Came in with fevers. ) Eyes: Reports: change in vision Cardio: Reports: chest pain and shortness of breath with exertion (chronic) Resp: Reports: shortness of breath (chronic) GI: Reports: other (has ostomy) : Reports: other (has catheter) Musculo: Reports: back pain, extremity pain, joint pain and other (wound discomfort ) [facility] Medical History (Updated 04/11/25 @ 12:21 by Lucía Espinoza MD) Lower extremity edema ?R60.0 - Localized edema (ICD-10) Scalp abscess ?L02.811 - Cutaneous abscess of head [any part, except face] (ICD-10) HTN (hypertension) ?I10 - Essential (primary) hypertension (ICD-10) Health care directive on file ?Z78.9 - Other specified health status (ICD-10) Pressure ulcer of coccygeal region, stage 4 ?L89.154 - Pressure ulcer of sacral region, stage 4 (ICD-10) UTI (urinary tract infection) ?N39.0 - Urinary tract infection, site not specified (ICD-10) Hypoalbuminemia due to protein-calorie malnutrition ?E88.09 - Other disorders of plasma-protein metabolism, not elsewhere classified (ICD-10) ?E46 - Unspecified protein-calorie malnutrition (ICD-10) 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, stage 4 ?L89.44 - Pressure ulcer of contiguous site of back, buttock and hip, stage 4 (ICD-10) Pressure ulcer ?L89.90 - Pressure ulcer of unspecified site, unspecified stage (ICD-10) Osteomyelitis ?M86.9 - Osteomyelitis, unspecified (ICD-10) Anemia ?D64.9 - Anemia, unspecified (ICD-10) Diarrhea ?R19.7 - Diarrhea, unspecified (ICD-10) Intravenous infiltration ?T80.1XXA - Vascular complications following infusion, transfusion and therapeutic injection, initial encounter (ICD-10) Neurogenic bladder ?N31.9 - Neuromuscular dysfunction of bladder, unspecified (ICD-10) Chronic, continuous use of opioids ?F11.90 - Opioid use, unspecified, uncomplicated (ICD-10) Rheumatoid arthritis ?M06.9 - Rheumatoid arthritis, unspecified (ICD-10) Cristobal catheter in place ?Z97.8 - Presence of other specified devices (ICD-10) Sleep apnea ?G47.30 - Sleep apnea, unspecified (ICD-10) Paraplegia ?G82.20 - Paraplegia, unspecified (ICD-10) Acute on chronic anemia ?D64.9 - Anemia, unspecified (ICD-10) Paraplegia ?G82.20 - Paraplegia, unspecified (ICD-10) Chronic pain ?G89.29 - Other chronic pain (ICD-10) Tubular adenoma of colon ?D12.6 - Benign neoplasm of colon, unspecified (ICD-10) 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 - Acute transverse myelitis in demyelinating disease of central nervous system (ICD-10) Septic shock ?A41.9 - Sepsis, unspecified organism (ICD-10) ?R65.21 - Severe sepsis with septic shock (ICD-10) Recurrent urinary tract infection ?N39.0 - Urinary tract infection, site not specified (ICD-10) Osteoporosis ?M81.0 - Age-related osteoporosis without current pathological fracture (ICD-10) History of methicillin resistant Staphylococcus aureus infection ?Z86.14 - Personal history of Methicillin resistant Staphylococcus aureus infection (ICD-10) Surgical History (Updated 04/09/25 @ 08:21 by Lucía Espinoza MD) Colostomy status ?Z93.3 - Colostomy status (ICD-10) Status post debridement ?Z98.890 - Other specified postprocedural states (ICD-10) Social History (Reviewed 04/08/25 @ 22:01 by LISET Zarate Narrative: Mary has recently been living at [facility], daughter Elvi (MDM if needed) is hoping to bring her home with collections manager caregiving. has cognitive impairment. At this time (12/08/23), she is requesting DNR/DNI status. Nonsmoker, no ETOH use. What is your current living situation?: I presently have a place to live Problems where you live: no known problems Problems where you live details: n/a In the past 12 months, utilities in danger of being shut off: no In past 12 months, lack of transportation kept you from medical appts, meetings, work, or getting things needed for daily living: no In the past 12 mos, have been you worried that your food would run out before you had money to buy more?: never true In the past 12 mos, the food you bought just didn't last and you didn't have money to buy more?: never true Highest level of school completed/degree received: Bachelor's degree Smoking Status: Never smoker Do you use any of these nicotine containing products: None Second hand tobacco smoke exposure: No How often do you have a drink containing alcohol: never How often do you have six or more drinks on one occasion: Never AUDIT-C Alcohol total score: 0 Non-prescribed substance use: denies use Caffeine: Yes (1 cup coffee/day) How often does anyone, including family, friends and others, physically hurt you: never How often does anyone, including family, friends and others, insult or talk down to you: never How often does anyone, including family, friends and others, threaten you with harm: never How often does anyone, including family, friends and others, scream or curse at you: never service: No Meds Home Medications and Allergies Home Medications ?Medication ?Instructions ?Recorded ?Confirmed ?Type ascorbic acid (vitamin C) 500 mg 500 mg PO DAILY #30 tabs 12/13/23 04/09/25 Rx tablet (Vitamin C) loperamide 2 mg capsule 2 mg PO TID PRN loose stool #30 12/13/23 04/09/25 Rx caps miconazole nitrate 2 % topical 1 applic topical BID PRN #85 grams 12/13/23 04/09/25 Rx powder zinc sulfate 50 mg zinc (220 mg) 50 mg PO DAILY #30 caps 12/13/23 04/09/25 Rx capsule multivitamin with folic acid 400 1 tab PO DAILY 03/22/24 04/09/25 History mcg tablet (Daily-Charles (with folic acid)) Lactobacillus rhamnosus GG PO .QD 07/07/24 08/24/24 History [Culturelle] acetaminophen 650 mg 1,300 mg PO Q12H PRN 07/07/24 04/09/25 History tablet,extended release diclofenac sodium 1 % topical gel 4 g topical TID PRN 07/07/24 04/09/25 History lidocaine HCl 4 % topical patch 3 patch topical Q24H 07/07/24 04/09/25 History pregabalin 75 mg capsule 75 mg PO TID 07/07/24 04/09/25 History sennosides 8.6 mg tablet 8.6 - 17.2 mg PO BID PRN 07/07/24 04/09/25 History triamcinolone acetonide 0.1 % 1 applic topical BID PRN 07/07/24 04/09/25 History topical cream furosemide 20 mg tablet 20 mg PO QAM #90 tabs 08/24/24 04/09/25 Rx metoprolol succinate 50 mg 50 mg PO QDAY #90 tabs 08/24/24 04/09/25 Rx tablet,extended release 24 hr naproxen sodium 220 mg capsule 220 mg PO QDAY PRN 08/24/24 04/09/25 History polyethylene glycol 3350 17 gram 17 g PO QDAY 08/24/24 04/09/25 History oral powder packet (Miralax) hydromorphone 2 mg tablet 2 mg PO Q6H PRN pain #90 tabs 10/19/24 04/09/25 Rx (Dilaudid) gabapentin 300 mg capsule 300 mg PO 3XD 04/09/25 04/09/25 History ketoconazole 2 % topical cream applic topical BID 04/09/25 History Allergies Allergy/AdvReac Type Severity Reaction Status Date / Time piperacillin Allergy Intermediate Rash Verified 04/08/25 23:17 sulfamethoxazole (From Allergy Intermediate Hives Verified 04/08/25 23:17 Bactrim) tazobactam Allergy Intermediate Rash Verified 04/08/25 23:17 trimethoprim (From Bactrim) Allergy Intermediate Hives Verified 04/08/25 23:17 vancomycin Allergy Unknown Anaphylactic Verified 04/08/25 23:17 shock with this medication. 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 Exam Const: Vital Signs, click to edit/add: Vital Signs - 24 hr 04/10/25 14:55 04/10/25 15:00 04/10/25 15:00 Temperature 97.9 F Pulse Rate Pulse Rate [Pulse Oximeter] 101 H Respiratory Rate 20 20 Blood Pressure [ri ght FA] 180/90 H Pulse Oximetry 93 92 92 Oxygen Delivery Me thod Room Air Room Air 04/10/25 15:00 04/10/25 16:00 04/10/25 20:10 Temperature 95.5 F L Pulse Rate 103 H Pulse Rate [Pulse Oximeter] 101 H 122 H Respiratory Rate 20 20 Blood Pressure [ri ght FA] 209/100 H Pulse Oximetry 90 Oxygen Delivery Me thod Room Air 04/10/25 22:39 04/10/25 22:39 04/10/25 23:00 Temperature Pulse Rate Pulse Rate [Pulse Oximeter] 86 Respiratory Rate 20 20 Blood Pressure [ri ght FA] 176/92 H Pulse Oximetry 93 92 95 Oxygen Delivery Me thod Room Air BiPAP Room Air BiPAP 04/10/25 23:39 04/11/25 03:00 04/11/25 07:00 Temperature 95.8 F L Pulse Rate 89 97 Pulse Rate [Pulse Oximeter] 61 Respiratory Rate 20 Blood Pressure [ri ght FA] 181/92 H Pulse Oximetry 92 Oxygen Delivery Me thod Room Air BiPAP 04/11/25 07:00 04/11/25 07:00 04/11/25 07:00 Temperature 97.7 F Pulse Rate Pulse Rate [Pulse Oximeter] 95 Respiratory Rate 18 18 Blood Pressure [ri ght FA] 208/107 H Pulse Oximetry 95 92 91 Oxygen Delivery Me thod Room Air BiPAP Room Air BiPAP 04/11/25 08:00 04/11/25 11:00 Temperature 98.6 F Pulse Rate Pulse Rate [Pulse Oximeter] 95 100 Respiratory Rate 18 18 Blood Pressure [ri ght FA] 200/102 H Pulse Oximetry 92 Oxygen Delivery Me thod Room Air BiPAP Common normals: no apparent distress and oriented x3 General appearance: cooperative Orientation/consciousness: Yes awake HENMT: Common normals: normocephalic Head and scalp: normocephalic Resp: Common normals: clear to auscultation bilaterally Effort & inspection: able to speak in complete sentences Auscultation: clear to auscultation bilaterally Cardio: Rate: tachycardic Neuro: Common normals: oriented x3 Sensorium/orientation: awake Skin: Wounds: wounds noted (gluteal pressure wound) without odor; no drainage and without any surrounding erythema Labs Labs: Short CBC 04/11/25 Range/Units 06:24 WBC 12.21 H (4.50-11.00) K/uL Hgb 11.7 L (12.0-16.0) gm/dL Hct 38.6 (33.0-51.0) % Plt Count 237 (140-440) K/uL BMP 04/11/25 06:24 Sodium 139 Potassium 4.3 Chloride 109 Carbon Dioxide 26 BUN 15 Creatinine 0.3 L Glucose 108 Calcium 8.9 Liver Function 04/11/25 Range/Units 06:24 Total Bilirubin 0.8 (0.1-1.5) mg/dL AST 21 (12-35) U/L ALT 37 H (4-35) U/L Alkaline Phosphatase 115 (40-150) U/L Albumin 3.1 L (3.3-5.0) g/dL Assessment and Plan Assessment and plan (1) Pressure ulcer of right buttock, stage 4: Problem comment: - with radiographic concerns of chronic osteomyelitis - appeared noninfected in ER, wound care following, dressing change completed 04/11 (typically has dressing changed thrice weekly at home) Status: Acute Plan Will have patient use Aquacel while here in hospital. Prefer Aquacel Silver and with a Mepilex over it. Change 3 times a week. Upon discharge patient should follow-up with her established wound care with [facility] care. Is seen through [facility] that comes to her home. Did have a visiting wound care team do home visits earlier year.
--- NOTE | 2025-04-11 14:01 | PC.SOCIAL ---
Discharge Planning: DAISY received call from Kera, Housekeeping Lead with [facility] Senior Co-Care Team, stating that patient is enrolled in this program and wanted an update on when patient would be discharging and if it would be to home or TCU. DAISY called Kera back ([phone]) and informed earliest discharge would be Friday likely, and unsure about TCU vs home at this time. Kera asked to be kept updated. If discharging home, orders need to be faxed to [facility] at [phone]. DAISY to support as needed.
--- NOTE | 2025-04-11 14:09 | REH.OT ---
OT: Order received, chart reviewed and met with patient who declines therapy services. Patient politely declines and states, right now, there would not be benefits to therapy, just pain. Patient with hx of LE edema, currently not exacerbated and reports has been able to manage with family assist at home. Patient reports she has ROM program and does not want to participate in it, she has DME for home environment. Patient informed that if she changes her mind to participate in therapy, to inform staff. MD and RN informed of above.
--- NOTE | 2025-04-11 16:17 | RESP.RT ---
Patient is on room air and can freely use her home PAP unit as needed
--- NOTE | 2025-04-11 18:50 | PC.NURSE ---
Pt Alert & Orientated. Reposition q2 hours. Pressure wound to Right buttocks dressing changed C/D/I. Colostomy bag change. Pt chronic shoulder & hip pain treated with PRN medication.
[2025-04-11] MEDS: HEPARIN 500 UNIT/5 ML SYRINGE 1000 UNIT IVF (20:31)
[2025-04-11] MEDS: ENOXAPARIN 40 MG/0.4 ML INJ SUBCUT (20:36)
[2025-04-12] VITALS (14 sets, daily range): BP systolic 150–188; BP diastolic 66–98; PULSE 75–105; RESP 14–20; TEMP 35.5–36.3; O2SAT 92–99
[2025-04-12] MEDS: PANTOPRAZOLE SODIUM 40 MG INJ IVP (05:12)
[2025-04-12] MEDS: SODIUM CHLORIDE MINI 0.9% IVPB (05:51)
[2025-04-12] MEDS: MEROPENEM IVPB (05:51)
[2025-04-12] MEDS: SODIUM CHLORIDE 0.9 % (FLUSH) 10 ML SYRINGE 5 ML IVF ×3 (05:53→20:43)
[2025-04-12] MEDS: ACETAMINOPHEN 325 MG TABLET 650 MG PO (06:23)
[2025-04-12] MEDS: HEPARIN 500 UNIT/5 ML SYRINGE 1000 UNIT IVF ×2 (06:43→20:41)
[2025-04-12] MEDS: HEPARIN 500 UNIT/5 ML SYRINGE IVF ×2 (06:43→20:42)
--- NOTE | 2025-04-12 07:40 | PC.NURSE ---
Arrived to find the patient calm and in a good state of mind but reporting oxygen hunger. They felt like they were breathing deeper than they usually need to and that they were unable to breath automatically, needing to do so consciously. Oxygen was dipping into the mid 80s from a baseline of lower 90s. Application of her BiPAP resolved these issues. notified via phone. No changes in orders. Vitals show hypertension. Tele shows normal sinus rhythm per preceptor La VALENTINE. Ostomy in place slowly producing dark, brown stool. The ostomy site appears a bright pink. Producing small amounts of thick, sludge like light brown stool. Cristobal in place producing cloudy, yellow urine with filaments in moderate amounts. We are turning the patient every two hours but the ideal turn positions cause pain for the patient either in the butt area or in the right hip. Her requests at repositioning ultimately reduce the viability of the turns but are important for her comfort and ensuring pain is minimized. The wound site itself appears to be healing when compared to photos from 2023. It is a small sliver of pink tissue in the higher end of the intergluteal crest. No drainage to minimal drainage noted. Paraplegic. Legs are significantly small when compared to body size and the left leg is in a permanent twist outwards. These are both highly elevated on pillows. No signs of pressure injury on heals. Patient reports sensation is intact. Central line on the right femoral. Three lumen. Heparin locked per orders. Hypertension reached 180/83 at 0400. call center support representative notified and orders received for PRN Labetalol. The patient was off of BiPAP and put onto a NC at 1 L to maintain above 90 at the time before transfer of care. To reassess need for O2 as the morning goes on. We?ve been watching her closely as she swallows for safety and there is no sign of impairment. Clear lung sounds. No coughing. Thin liquids continues to be safe.?
[2025-04-12] MEDS: POTASSIUM CHLORIDE 10 MEQ CAPSULE ER 20 MEQ PO ×2 (09:03→17:41)
[2025-04-12] MEDS: FUROSEMIDE 20 MG TABLET PO (09:04)
[2025-04-12] MEDS: GABAPENTIN 300 MG CAPSULE PO ×3 (09:04→20:41)
[2025-04-12] MEDS: AMLODIPINE 5 MG TABLET PO (09:04)
[2025-04-12] MEDS: SENNOSIDES 1 TAB TABLET PO (09:04)
[2025-04-12] MEDS: METOPROLOL SUCCINATE (XL) 50 MG TAB PO (09:04)
--- NOTE | 2025-04-12 10:00 | PM.IMPN1 ---
Assessment and Plan Assessment and plan (1) Acute UTI: Problem comment: UC growing E coli and Enterococcus faecalis, E coli sensitive to meropenem and ceftriaxone E faecalis noted in previous cultures including wound. ?colonized. Chronic indwelling catheter. Sensitive to penicillins and vancomycin both of which she is allergic to. Discussed with Infectious Disease, agree likely chronic and secondary to colonization, no further antibiotic management for Enterococcus. Clinically continues to improve Deescalate meropenem to ceftriaxone with plan to transition to oral upon discharge, possibly 1-2 days Status: Acute (2) Septic shock: Problem comment: RESOLVED - presented with BPs 80s/30s, HR 130s decreased mentation, temperature of 102 - required Norepinephrine via central line to keep MAP >65, tapered off of this 04/09 in the evening - Meropenem and Daptomycin (04/09), d/c Daptomycin 04/10 given E Coli in urine and blood Status: Resolved (3) Sepsis: Problem comment: RESOLVED - 2/2 E Coli UTI Status: Resolved (4) Neurogenic bladder: Problem comment: - chronic indwelling delacruz - replaced in ER 04/09/25 Status: Chronic (5) Pressure ulcer of right buttock, stage 4: Problem comment: - with radiographic concerns of chronic osteomyelitis - appeared noninfected in ER, wound care following, dressing change completed 04/11 (typically has dressing changed thrice weekly at home) 04/11 Wound clinic consulted. Aquacel and Mepilex recommended during hospital course, changing dressings t.i.d.. Resume [facility] home cares, tid, on discharge Status: Acute (6) Type 2 diabetes mellitus: Problem comment: - diet controlled, current A1C 6.3 (03/2025) - accuchecks Status: Acute (7) COPD (chronic obstructive pulmonary disease): Problem comment: - chronic overlay with central sleep apnea and hypoventilation given long standing paraplegia - previously has used BIPAP during hospital stays at night Status: Acute (8) Chronic, continuous use of opioids: Problem comment: - takes hydromorphone as an outpatient given chronic pain (hips, shoulders) - has been on Suboxone in the past as well Status: Acute (9) Paraplegia: Problem comment: - since age 6; 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 Status: Chronic (10) Colostomy status: Problem comment: - diverting colostomy 05/2024 2/2 chronic constipation/obstruction and chronic sacral wounds Status: Acute Plan Deescalating IV antibiotics to ceftriaxone with plan to transition to oral antibiotics. Possible discharge 1-2 days. Will need to resume [facility] for wound cares t.i.d.. Total Time Spent Total Time Spent: Today I spent 75 minutes seeing the patient, reviewing Expanse and EPIC notes/diagnostics, discussing the care plan with our care time that includes social work, PT/OT, pharmacy, RT, residential and documenting my impressions and plan in the medical record. Subjective Date Seen: 04/12/25 Interval history: Patient is seen lying in bed this morning. Reports feeling ?a little better? than yesterday morning. Has a mild global headache. Denies dizziness. Denies chest pain. Shortness of breath no worse this morning. Was on BiPAP overnight. Has remained afebrile, last fever was 04/08. Tolerating orals without nausea vomiting. 1 of 2 blood cultures from 04/08 growing E coli, sensitive to meropenem. Second culture same date showing no growth after 72 hours. Blood cultures from 04/10 and 04/11 currently negative. Exam Narrative: Exam Narrative: PHYSICAL EXAM General: Pleasant, conversant, NAD this morning HEENT: Normocephalic, atraumatic, sclera white, EOMI, oral mucosa moist Cardiovascular: RRR, S1S2 Pulmonary: Diminished, no expiratory wheezes, no dyspnea on room air Abdominal: Soft, nondistended, NTTP Neurological: Alert, answering questions appropriately, cranial nerves intact, no focal findings Extremities: No acute changes. Neurovascularly intact Skin: Warm, dry. Const: Vital Signs, click to edit/add: Vital Signs - 24 hr 04/11/25 11:00 04/11/25 14:44 04/11/25 14:44 Temperature 98.6 F Pulse Rate Pulse Rate [Pulse Oximeter] 100 Respiratory Rate 18 18 Blood Pressure [ri ght FA] 200/102 H Pulse Oximetry 92 96 96 Oxygen Delivery Me thod Room Air BiPAP Room Air BiPAP Oxygen Flow Rate 04/11/25 14:44 04/11/25 14:48 04/11/25 16:00 Temperature 97.9 F Pulse Rate 91 Pulse Rate [Pulse Oximeter] 82 82 Respiratory Rate 18 18 Blood Pressure [ri ght FA] 195/100 H Pulse Oximetry 96 Oxygen Delivery Me thod Room Air BiPAP Oxygen Flow Rate 0.5 04/11/25 19:30 04/11/25 22:00 04/11/25 22:44 Temperature 96.7 F L Pulse Rate 72 Pulse Rate [Pulse Oximeter] 111 H Respiratory Rate 18 14 Blood Pressure [ri ght FA] 164/74 H Pulse Oximetry 91 Oxygen Delivery Me thod Room Air Oxygen Flow Rate 04/11/25 23:05 04/11/25 23:06 04/11/25 23:06 Temperature 96.5 F L Pulse Rate Pulse Rate [Pulse Oximeter] 71 Respiratory Rate 16 16 Blood Pressure [ri ght FA] 157/78 H Pulse Oximetry 94 94 94 Oxygen Delivery Me thod BiPAP BiPAP Oxygen Flow Rate 0.5 04/12/25 04:00 04/12/25 05:11 04/12/25 07:00 Temperature 96.7 F L Pulse Rate Pulse Rate [Pulse Oximeter] 76 Respiratory Rate 20 14 Blood Pressure [ri ght FA] 180/83 H 150/66 H Pulse Oximetry 96 92 Oxygen Delivery Me thod BiPAP Room Air Oxygen Flow Rate 04/12/25 07:01 04/12/25 08:00 04/12/25 08:24 Temperature Pulse Rate 88 Pulse Rate [Pulse Oximeter] 90 Respiratory Rate 14 Blood Pressure [ri ght FA] Pulse Oximetry 99 Oxygen Delivery Me thod Oxygen Flow Rate 04/12/25 08:24 Temperature 96.9 F L Pulse Rate Pulse Rate [Pulse Oximeter] 90 Respiratory Rate 14 Blood Pressure [ri ght FA] 174/80 H Pulse Oximetry 94 Oxygen Delivery Me thod Room Air Oxygen Flow Rate
[2025-04-12] MEDS: cefTRIAXone 1 GM in 0.9 % SODIUM CHLORIDE Mini-bag 100 ML IVPB (11:29)
--- NOTE | 2025-04-12 13:40 | PC.SOCIAL ---
Discharge planning: DAISY spoke with patient's daughter to check in on any needs or concerns. Daughter states that she doesn't have any, just that the [facility] team will need orders sent when patient is discharged. SW explained she will send those and that we have the fax for them when ready. Daughter informed SW that patient will need NEMT when ready for discharge as they no longer have a car that can transport her, DAISY explained that insurance may cover the cost, but if it doesn't then it would be around $200, daughter is okay with this. DAISY notified staple fiber washer. Daughter had no other questions or concerns at this time.
--- NOTE | 2025-04-12 19:38 | PC.NURSE ---
End of shift-- Pleasant and cooperative, alert and oriented patient. VSS, though pt is hypertensive, and pt is afebrile. SPO2 maintained >88% on RA most of the day. This afternoon sats were noted to be as low as 86% and O2 was applied at 1L per n.c. She c/o pain in hip, back and shoulder which she rated from 7-8 out of 10 and was given Dilaudid with stated partial relief. LS clear but very diminished in bases. Telemetry shows NSR. She c/o some minimal nausea, but declined intervention for it. She ate 50-75% of 2 regular meals today and tolerated it well. Ostomy is patent and draining small amounts of soft, brown stool. Cristobal is patent and drained >1900mls of pale, yellow urine this shift. Dressing to pt's coccyx is C/D/I. Area surrounding is purplish but blanches with pressure. Repositioned per patient tolerance today.
[2025-04-12] MEDS: ENOXAPARIN 40 MG/0.4 ML INJ SUBCUT (20:40)
[2025-04-13 03:00] VITALS: PULSE 62
[2025-04-13 03:34] VITALS: BP 162/92; PULSE 60; RESP 18; TEMP 35.5; O2SAT 92
--- NOTE | 2025-04-13 05:36 | PC.NURSE ---
Pt pleasant and cooperative. VSS, T&R q2-2.5 hrs. ostomy was emptied for 200cc liquid stool. Cristobal was emptied for 950. Pt slept most of the night.
[2025-04-13] MEDS: HEPARIN 500 UNIT/5 ML SYRINGE IVF (06:51)
[2025-04-13] MEDS: OMEPRAZOLE 20 MG CAPSULE DR PO (06:52)
[2025-04-13 07:00] VITALS: BP 189/91; PULSE 77; PULSE 86; RESP 18; TEMP 36.7; O2SAT 95
[2025-04-13 07:21] LABS: Hematocrit 38.6 % (33.0-51.0); Hemoglobin* 12.0 gm/dL (12.0-16.0); Mean Corpuscular HGB Conc 31 gm/dL (32-36); Mean Corpuscular Hemoglobin 30 pg (26-34); Mean Corpuscular Volume 97 fL (80-100); Red Blood Count 3.97 m/uL (4.00-5.20); White Blood Count* 9.84 K/uL (4.50-11.00)
[2025-04-13 07:26] LABS: Slide Review Reflex No
[2025-04-13 07:35] LABS: Chloride* 98 mmol/L (96-114); Potassium* 3.6 mmol/L (3.6-5.1); Sodium* 135 mmol/L (135-149)
[2025-04-13 07:38] LABS: Anion Gap 0 mEq/L (7-15); Blood Urea Nitrogen* 15 mg/dL (7-30); Carbon Dioxide* 37 mmol/L (20-32); Creatinine* 0.3 mg/dL (0.5-1.5); Est. Creatinine Clearance* 33.30; Estimated Glomerular Filt Rate 109 ml/min
[2025-04-13 07:39] LABS: Calcium* 8.5 mg/dL (8.4-10.6); Glucose* 87 mg/dL (60-115)
[2025-04-13] MEDS: POTASSIUM CHLORIDE 10 MEQ CAPSULE ER 20 MEQ PO (07:44)
[2025-04-13] MEDS: AMLODIPINE 5 MG TABLET PO (08:08)
[2025-04-13] MEDS: FUROSEMIDE 20 MG TABLET PO (08:09)
[2025-04-13] MEDS: METOPROLOL SUCCINATE (XL) 50 MG TAB PO (08:09)
[2025-04-13] MEDS: GABAPENTIN 300 MG CAPSULE PO (08:09)
[2025-04-13] MEDS: SODIUM CHLORIDE 0.9 % (FLUSH) 10 ML SYRINGE 5 ML IVF (08:10)
[2025-04-13] MEDS: SENNOSIDES 1 TAB TABLET PO (08:10)
[2025-04-13] MEDS: cefTRIAXone 1 GM in 0.9 % SODIUM CHLORIDE Mini-bag 100 ML IVPB (10:28)
--- NOTE | 2025-04-13 10:30 | P.DS_ITS ---
DS: Providers Provider Date Seen: 04/13/25 Date of admission: 04/09/25 05:21 Primary care physician: Flo Mckeon MD Admitting Clinician: Triston Elaine MD Consults: 04/09/25 05:23 Consult to Speech Therapy [CONS] Routine Comment: Reason(s) for Speech Consult:: Speech/Swallowing Eval Consult to Wound Care [CONS] Routine Comment: Consulting Provider[facility] 04/10/25 20:37 Consult to Speech Therapy [CONS] Routine Comment: Reason(s) for Speech Consult:: Swallowing Difficulty 04/12/25 10:46 Consult to Infectious Diseases [CONS] Routine Comment: E faecalis in UC, chronic indwelling cath, urosep Consulting Provider: Leslie TeleInfectious Disease Attending Physician on discharge: Britt Adkins 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 ?colonized. Chronic indwelling catheter. Sensitive to penicillins and vancomycin both of which she is allergic to. Discussed with Infectious Disease, agree likely chronic and secondary to colonization, no further antibiotic management for Enterococcus. Clinically continues to improve Deescalate meropenem to ceftriaxone with plan to transition to oral upon discharge, possibly 1-2 days Patient has continued to clinically improve, leukocytosis resolved, remains afeb rile. Discharged with 5 day course of cefpodoxime having completed 5 day course of IV antibiotics. (2) Septic shock: Status: Resolved Problem details: RESOLVED - presented with BPs 80s/30s, HR 130s decreased mentation, temperature of 102 - required Norepinephrine via central line to keep MAP >65, tapered off of this 04/09 in the evening - Meropenem and Daptomycin (04/09), d/c Daptomycin 04/10 given E Coli in urine and blood (3) Sepsis: Status: Resolved Problem details: RESOLVED - 2/2 E Coli UTI (4) Neurogenic bladder: Status: Chronic Problem details: - chronic indwelling delacruz - replaced in ER 04/09/25 (5) Pressure ulcer of right buttock, stage 4: Status: Acute Problem details: - with radiographic concerns of chronic osteomyelitis - appeared noninfected in ER, wound care following, dressing change completed 04/11 (typically has dressing changed thrice weekly at home) 04/11 Wound clinic consulted. Aquacel and Mepilex recommended during hospital course, changing dressings t.i.d.. Resume [facility], tid, on discharge Following discharge, resume [facility] with wound cares 3 times weekly. Last dressing change done 04/13/25. (6) Type 2 diabetes mellitus: Status: Acute Problem details: - diet controlled, current A1C 6.3 (03/2025) - accuchecks Continue management with PCP. (7) COPD (chronic obstructive pulmonary disease): Status: Acute Problem details: - chronic overlay with central sleep apnea and hypoventilation given long standing paraplegia - previously has used BIPAP during hospital stays at night Continue management with PCP. 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 Patient has completed 5 day course of IV antibiotics during hospital course, will continue with oral cefpodoxime other 5 days to complete 10 day course of antibiotic therapy. UC/BC findings as above, discussed with ID. Remainder of chronic medical comorbidities were monitored and managed with home medications. Status at Discharge Overall status at discharge: patient is back to baseline Time Spent with Patient Time attestation: Total time spent providing and/or coordinating discharge services: Time spent: Greater than 30 minutes Exam Narrative: Exam Narrative: PHYSICAL EXAM General: Pleasant, conversant, NAD Cardiovascular: RRR Pulmonary: No dyspnea Neurological: Alert, answering questions appropriately Skin: Warm, dry. Const: Vital Signs, click to edit/add: Vital Signs - 24 hr 04/12/25 11:00 04/12/25 15:00 04/12/25 15:00 Temperature 97.1 F L Pulse Rate Pulse Rate [Pulse Oximeter] 105 H Respiratory Rate 18 16 Blood Pressure [ri ght FA] 152/71 H Pulse Oximetry 93 96 96 Oxygen Delivery Me thod Room Air Nasal Cannula Oxygen Flow Rate 1.5 04/12/25 15:00 04/12/25 15:43 04/12/25 16:00 Temperature 97.4 F L Pulse Rate 94 Pulse Rate [Pulse Oximeter] 99 99 Respiratory Rate 18 18 Blood Pressure [ri ght FA] 188/98 H Pulse Oximetry 96 Oxygen Delivery Me thod Nasal Cannula Oxygen Flow Rate 1 04/12/25 19:30 04/12/25 20:55 04/12/25 23:02 Temperature 96.5 F L Pulse Rate 89 Pulse Rate [Pulse Oximeter] 89 Respiratory Rate 18 Blood Pressure [ri ght FA] 151/77 H Pulse Oximetry 97 95 Oxygen Delivery Me thod Nasal Cannula Oxygen Flow Rate 1 04/12/25 23:06 04/12/25 23:52 04/13/25 03:00 Temperature 95.9 F L Pulse Rate 62 Pulse Rate [Pulse Oximeter] 75 Respiratory Rate 18 Blood Pressure [ri ght FA] 172/88 H Pulse Oximetry 95 Oxygen Delivery Me thod Room Air BiPAP Room Air BiPAP Oxygen Flow Rate 04/13/25 03:34 04/13/25 07:00 04/13/25 07:00 Temperature 95.9 F L Pulse Rate 86 Pulse Rate [Pulse Oximeter] 60 Respiratory Rate 18 Blood Pressure [ri ght FA] 162/92 H Pulse Oximetry 92 95 Oxygen Delivery Me thod Room Air BiPAP Oxygen Flow Rate 04/13/25 07:00 04/13/25 07:00 Temperature 98.0 F Pulse Rate Pulse Rate [Pulse Oximeter] 77 Respiratory Rate 18 18 Blood Pressure [ri ght FA] 189/91 H Pulse Oximetry 95 95 Oxygen Delivery Me thod Room Air BiPAP Room Air BiPAP Oxygen Flow Rate DS: Data Data Completed and Pending Completed studies during hospitalization: Procedures Assistance with Respiratory Ventilation, Greater than 96 Consecutive Hours, Continuous Positive Airway Pressure (08/28/23) Assistance with Respiratory Ventilation, Less than 24 Consecutive Hours, Continuous Positive Airway Pressure (12/08/23) Drainage of Anus, Open Approach, Diagnostic (08/28/23) Drainage of Buttock Subcutaneous Tissue and Fascia, Open Approach, Diagnostic (03/21/24) Drainage of Rectum, Open Approach, Diagnostic (08/28/23) Excision of Back Subcutaneous Tissue and Fascia, Percutaneous Approach (03/21/24) Excision of Buttock Subcutaneous Tissue and Fascia, Open Approach (01/16/24) Excision of Duodenum, Via Natural or Artificial Opening Endoscopic, Diagnostic (10/31/22) Excision of Right Pelvic Bone, Open Approach, Diagnostic (08/28/23) Excision of Right Upper Leg Subcutaneous Tissue and Fascia, Open Approach (10/31/22) Excision of Stomach, Pylorus, Via Natural or Artificial Opening Endoscopic, Diagnostic (10/31/22) Insertion of Infusion Device into Superior Vena Cava, Percutaneous Approach (12/08/23) Introduction of Other Anti-infective into Central Vein, Percutaneous Approach (12/08/23) Introduction of Other Gas into Respiratory Tract, Via Natural or Artificial Opening (01/15/23) Introduction of Other Therapeutic Substance into Respiratory Tract, Via Natural or Artificial Opening (03/21/24) Removal of Infusion Device from Great Vessel, External Approach (12/08/23) Transfusion of Nonautologous Red Blood Cells into Peripheral Vein, Percutaneous Approach (10/31/22) Ultrasonography of Superior Vena Cava, Guidance (12/08/23) Labs on day of discharge: Labs from last 24 hours 04/13/25 07:00 WBC 9.84 RBC 3.97 L Hgb 12.0 Hct 38.6 MCV 97 MCH 30 MCHC 31 L Plt Count 227 Sodium 135 Potassium 3.6 Chloride 98 Carbon Dioxide 37 H Anion Gap 0 L BUN 15 Creatinine 0.3 L Estimated Creat Clear 33.30 Estimated GFR 109 Glucose 87 Calcium 8.5 Preliminary micro results at discharge 04/11/25 06:24 Blood Culture - Preliminary Blood NO GROWTH AFTER 48 HOURS 04/10/25 05:45 Blood Culture - Preliminary Blood NO GROWTH AFTER 72 HOURS 04/08/25 21:17 Blood Culture - Preliminary Blood NO GROWTH AFTER 96 HOURS Discharge Plan Discharge Disposition: Home, Self-Care Date of Admission: 04/09/25 05:21 Attending Provider on Discharge: Britt Adkins Consulting Providers: Margaret Raman; Soco Malik; Wendy Eagle; Maria D Jones Primary Care Provider: Flo Mckeon Condition: Improved Anticipated Discharge Date/Time: 04/13/25 10:23 Discharge Medications: New amlodipine 5 mg Tablet 5 mg PO DAILY Qty: 30 0RF cefpodoxime 200 mg tablet 200 mg PO BID 5 Days Qty: 10 0RF Rx Instructions: must administer with a meal/food Continued diclofenac sodium 1 % gel 4 g topical TID PRN lidocaine HCl 4 % adhesive patch,medicated 3 patch topical Q24H pregabalin 75 mg capsule 75 mg PO TID sennosides 8.6 mg tablet 8.6 - 17.2 mg PO BID PRN acetaminophen 650 mg tablet extended release 1,300 mg PO Q12H PRN Lactobacillus rhamnosus GG [Culturelle] PO .QD triamcinolone acetonide 0.1 % cream 1 applic topical BID PRN naproxen sodium 220 mg capsule 220 mg PO QDAY PRN polyethylene glycol 3350 [Miralax] 17 gram powder in packet 17 g PO QDAY furosemide 20 mg tablet 20 mg PO QAM Qty: 90 3RF metoprolol succinate 50 mg tablet extended release 24 hr 50 mg PO QDAY Qty: 90 3RF zinc sulfate 50 mg zinc (220 mg) capsule 50 mg PO DAILY Qty: 30 0RF ascorbic acid (vitamin C) [Vitamin C] 500 mg tablet 500 mg PO DAILY Qty: 30 0RF loperamide 2 mg capsule 2 mg PO TID PRN (Reason: loose stool) Qty: 30 0RF miconazole nitrate 2 % powder 1 applic topical BID PRNQty: 85 0RF multivitamin with folic acid [Daily-Charles (with folic acid)] 400 mcg tablet 1 tab PO DAILY gabapentin 300 mg capsule 300 mg PO 3XD ketoconazole 2 % cream topical BID hydromorphone [Dilaudid] 2 mg tablet 2 mg PO Q6H PRN (Reason: pain) Qty: 90 0RF Discharge Orders: Discharge Order (Routine); Ordered 04/13/25 Ordered By: Britt Adkins Patient Education: Cefpodoxime Proxetil (By mouth), Amlodipine (By mouth), Urinary Tract Infection in Women (DC) Activity Level: No Restrictions Discharge Diet: Diabetic Follow Up Appointments: Flo Mckeon MD [Primary Care Provider, Family Practice] Referral Note: Post hospital follow-up 3-7 days Forms: MyHealth Info Instructions
--- NOTE | 2025-04-13 11:32 | PC.SOCIAL ---
Discharge planning: SW met with patient to review the Important Message from Medicare. Patient had no questions about this and was not interested in appealing at this time. Patient states that she doesn't want to go home as she'd like to give her another day to settle as her who her daughter also cares for had a small stroke. Patient reports last week they started inHom nursing and are looking to get more hours from them soon. Patient denies any need for additional resources or supports at this time. SW discussed NEMT with patient who states that would be best. SW spoke with daughter who states that with the NEMT, they will need assistance from the fire department as well due to their house being awkward and a stretcher can't be brought in and that this is what was done last time. DAISY informed battery recharger of this. DAISY informed that NEMT will be arriving around [id number]. DAISY called patients daughter and informed her of the time. DAISY called Kera the DAISY with [facility] and informed of discharge today. DAISY faxed discharge orders and summary to patient's [facility] mobile care team and to [facility]. SW to assist if other needs arise.
[2025-04-13] MEDS: ACETAMINOPHEN 325 MG TABLET 650 MG PO (11:45)
== END 2025-04-13 11:40 | disposition home or self-care (01) | DRG 871 ==
LOC: ED 04-09 01:20 → MEDSURG 04-09 04:09
PROVIDERS: Emergency Medicine; Family Medicine; Internal Medicine; Physician Assistant; Admitting Provider Internal Medicine; Emergency Provider Student in an Organized Health Care Education/Training Program; PCP Family Medicine; Visit Provider Internal Medicine
DX: A41.51 Sepsis due to Escherichia coli [E. coli] (principal); G93.41 Metabolic encephalopathy; R65.21 Severe sepsis with septic shock; L89.154 Pressure ulcer of sacral region, stage 4; L89.314 Pressure ulcer of right buttock, stage 4; J69.0 Pneumonitis due to inhalation of food and vomit; T83.511A Infection and inflammatory reaction due to indwelling urethral catheter, initial encounter; N39.0 Urinary tract infection, site not specified; G82.20 Paraplegia, unspecified; G37.3 Acute transverse myelitis in demyelinating disease of central nervous system; K59.2 Neurogenic bowel, not elsewhere classified; M86.60 Other chronic osteomyelitis, unspecified site; M62.50 Muscle wasting and atrophy, not elsewhere classified, unspecified site; N31.9 Neuromuscular dysfunction of bladder, unspecified; E11.9 Type 2 diabetes mellitus without complications; Z96.0 Presence of urogenital implants; B96.20 Unspecified Escherichia coli [E. coli] as the cause of diseases classified elsewhere; B95.2 Enterococcus as the cause of diseases classified elsewhere; Z87.440 Personal history of urinary (tract) infections; Z86.14 Personal history of Methicillin resistant Staphylococcus aureus infection; M06.9 Rheumatoid arthritis, unspecified; I10 Essential (primary) hypertension; G89.29 Other chronic pain; G47.30 Sleep apnea, unspecified; D64.9 Anemia, unspecified; J44.9 Chronic obstructive pulmonary disease, unspecified; F11.90 Opioid use, unspecified, uncomplicated; E87.6 Hypokalemia; R74.01 Elevation of levels of liver transaminase levels; Z93.3 Colostomy status; I45.10 Unspecified right bundle-branch block
CPT/HCPCS: 36556; 36415; 51798; 70450; 71045; 71260; 74177; 80048; 80053; 81001; 81003; 82330; 82550; 82803; 82962; 83036; 83605; 83735; 83880; 84132; 84484; 85025; 85027; 87040; 87086; 87186; 87631; 87800; 93005; 93306; 94761; 99285; 99291; A9270; J0456; J0613; J0696; J0878; J1642; J1650; J1720; J1836; J1938; J1956; J2185; J2405; J2470; J3480; J7030; J7050; J7120; J7512; Q9967

== ENCOUNTER 2025-04-13 11:36 | Outpatient (CLI) | payer MEDICARE, SELFPAY | END 2025-04-13 11:37 | disposition home or self-care (01) | PROVIDERS: PCP Family Medicine; Visit Provider Family Medicine | DX: N39.0 Urinary tract infection, site not specified (principal) ==

== ENCOUNTER 2025-04-13 11:36 | Outpatient (CLI) | payer MEDICARE, SELFPAY | END 2025-04-13 11:37 | disposition home or self-care (01) | PROVIDERS: Visit Provider Family Medicine | DX: N39.0 Urinary tract infection, site not specified (principal); A41.9 Sepsis, unspecified organism; N31.9 Neuromuscular dysfunction of bladder, unspecified; L89.314 Pressure ulcer of right buttock, stage 4 | CPT/HCPCS: A0425; A0428 ==

== ENCOUNTER 2025-05-15 16:48 | Emergency (ER) | payer MEDICARE, SELFPAY ==
[2025-05-15] VITALS (53 sets, daily range): BP systolic 90–109; BP diastolic 39–55; PULSE 87–106; RESP 10–27; TEMP 37.2; O2SAT 79–100; BMI 28.0
--- OUTSIDE RECORDS SUMMARY | 2025-05-15 16:50 | XMS_ITS | Clinical Summary ---
Author Organization [facility] Address [address] [place] [id number] Care Team Providers Care Director Cardiology Name Role Phone Flo Mckeon MD Primary Care Provider [phone] Allergies Active Allergy Reactions Criticality Noted Date [...] mouth daily. At 1200 Active nystatin (MYCOSTATIN) 685268 UNIT/GM external powder Apply to body folds [...] in an abandoned building, in an overnight half-way, or couch-surfing.) Yes 08/26/2024 Are you worried [...] Comments Blood Pressure 110/50 09/10/2024 9:02 AM [facility]IST Pulse 73 09/10/2024 11:51 AM PHARMACY CUSTOMER CARE SPECIALIST Temperature 36.7 C (98.1 F) 09/10/2024 11:51 AM [facility]UST[facility]ER CARE SPECIALIST Respiratory Rate 17 09/10/2024 5:19 AM [facility]ARMAC[facility] CUSTOMER CARE SPECIALIST Oxygen Saturation 94% 09/09/2024 8:00 PM [facility]ARMACY CUSTOMER CARE SPECIALIST Inhaled Oxygen Concentration - - Weight 66.7 kg (147 lb 0.8 oz) 09/09/2024 4:20 A M [facility] C[facility] SPECIALIST Height 152.4 cm (5') 09/02/2024 8:25 AM [facility] CARE SPECIALIST Body Mass Index 28.72 09/02/2024 8:25 AM PHARMACY CUSTOMER CARE SPECIALIST Plan of Treatment Health Maintenance Due [...] 1-dose 75+ series) 2021 COVID-19 VACCINE ( - season) 2024 PHQ-2 (once per calendar year) 2024 BMP 03/10/2025 09/10/2024, 08/14, 09/08/2024, Additional history exists INFLUENZA VACCINE (#1) 2025 07/18/2009 ALT 09/03/2025 09/03/2024, 08/14, 05/10/2024, Additional history exists CBC 09/13/2025 09/13/2024, 08/14, 09/07/2024, Additional history exists DIABETES SCREENING 09/13/2027 09/13/2024, 1 11/10/2023, 09/09/2024, Additional history exists DTAP/TDAP/TD VACCINE (6 - Td or Tdap) 04/22/2028 04/22/2018, 04/22/2018, 04/22/2015, Additional history exists HEPATITIS C SCREENING Completed 06/28/2021 HPV VACCINE (No Doses Required) Completed MENINGITIS VACCINE Aged Out No longer eligible based on patient's age to complete this topic Procedures Procedure Name Priority Date/Time Associated Diagnosis Comments GLUCOSE (OUTREACH) Routine 09/13/2024 8: 34 AM [facility]ARE SPECIALIST Other general symptoms and signs Metabolic disorder, unspecified CBC WITH PLATELETS Routine 09/13/2024 8: 34 AM PHARMACY CUSTOMER CARE SPECIALIST Other general symptoms and signs Metabolic disorder, unspecified BASIC METABOLIC PANEL Add-On 09/10/2024 5:57 AM [facility]ARMACY CUSTOMER CARE SPECIALIST HEPATIC FUNCTION PANEL STAT Add-on 09/03/2024 5:27 AM PHARMACY CUSTOMER CARE SPECIALIST from Last 3 Months or Most Recently Relevant to Health Maintenance Results * (ABNORMAL) Glucose (OUTREACH) (09/13/2024 8:34 AM PHARMACY CUSTOMER CARE SPECIALIST) Glucose 63(L) 70 - 99 mg/dL 09/13/2024 2:20 PM PHARMACY CUSTOMER CARE SPECIALIST [facility] Blood STRUCTURE OF RIGHT UPPER LIMB / Unknown Venipuncture / Unknown 09/13/2024 8:34 AM [facility]ARMAC[facility] CUSTOMER CARE SPECIALIST 09/13/2024 11:53 AM PHARMACY CUSTOMER CARE SPECIALIST us Ever Kelly MD LAB - BLOOD ORDERABLES Final Result [facility] [place] [facility] [address] [facility], [address] [place] [id number] * (ABNORMAL) CBC with platelets (09/13/2024 8:34 AM PHARMACY CUSTOMER CARE SPECIALIST) WBC Count 19.6(H) 4.0 - 11.0 10e3/uL 09/13/2024 2:09 PM [facility] CUSTOMER CARE SPECIALIST [facility] RBC Count 4.45 3.80 - 5.20 10e6/uL 09/13/2024 2:09 PM [facility]USTOM[facility] CARE SPECIALIST [facility] Hemoglobin 11.8 11.7 - 15.7 g/dL 09/13/2024 2:09 PM [facility]UST[facility] CARE SPECIALIST [facility] Hematocrit 39.1 35.0 - 47.0 % 09/13/2024 2:09 PM [facility]AC[facility] CUSTOMER CARE SPECIALIST [facility] MCV 88 78 - 100 fL 09/13/2024 2:09 PM [facility] CUST[facility]ER CARE SPECIALIST [facility] MCH 26.5 26.5 - 33.0 pg 09/13/2024 2:09 PM PH[facility]AC[facility] CUSTOMER CARE SPECIALIST [facility] MCHC 30.2(L) 31.5 - 36.5 g/dL 09/13/2024 2:09 PM [facility] RDW 18.6(H) 10.0 - 15.0 % 09/13/2024 2:09 PM [facility] Platelet Count 231 150 - 450 10e3/uL 09/13/2024 2:09 PM [facility] Blood STRUCTURE OF RIGHT UPPER LIMB / Unknown Venipuncture / Unknown 09/13/2024 8:34 AM PHARMAC[facility] CUSTOMER CARE SPECIALIST 09/13/2024 11:53 AM PHARMAC[facility] CUSTOMER CARE SPECIALIST Ever Kelly MD LAB - BLOOD ORDERABLES Final Result [facility] [place] [facility] [address] [facility], [address] [id number] * (ABNORMAL) Basic metabolic panel (09/10/2024 5:57 AM [facility]) Sodium 141 135 - 145 mmol/L 09/10/2024 9:50 AM [facility] Potassium 3.7 3.4 - 5.3 mmol/L 09/10/2024 9:50 AM [facility] Chloride 94(L) 98 - 107 mmol/L 09/10/2024 9:50 AM [facility] Carbon Dioxide (CO2) 36(H) 22 - 29 mmol/L 09/10/2024 9:50 AM [facility] Anion Gap 11 7 - 15 mmol/L 09/10/2024 9:50 AM [facility] Urea Nitrogen 24.6(H) 8.0 - 23.0 mg/dL 09/10/2024 9:50 AM [facility] Creatinine 0.50(L) 0.51 - 0.95 mg/dL 09/10/2024 9:50 AM [facility] GFR Estimate >90 >60 mL/min/1.7 3m2 09/10/2024 9:50 AM [facility] Comment:eGFR calculated us2020 CKD-EPI equation. Calcium 8.7(L) 8.8 - 10.4 mg/dL 09/10/2024 9:50 AM [facility] Comment:Reference intervals for this test were updated on 04/27/2024 to reflect our healthy population more accurately. There may be differences in the flagging of prior results with similar values performed with this method. Those prior results can be interpreted in the context of the updated reference intervals. Glucose 86 70 - 99 mg/dL 09/10/2024 9:50 AM [facility] Blood STRUCTURE OF LEFT UPPER LIMB / Unknown Venipuncture / Unknown 09/10/2024 5:57 AM PHARMACY CUSTOMER CARE SPECIALIST 09/10/2024 6:14 AM PHARMACY CUSTOMER CARE SPECIALIST Sandy Ramirez MD LAB - BLOOD ORDERABLES Final Result [facility]ORATORY [facility] [address], [address] [place] [address], [facility] [phone] * (ABNORMAL) Hepatic panel (09/03/2024 5:27 AM PHARMACY CUSTOMER CARE SPECIALIST) Pathologist [facility] Protein Total 5.0(L) 6.4 - 8.3 g/dL 09/03/2024 2:56 PM [facility] Albumin 2.8(L) 3.5 - 5.2 g/dL 09/03/2024 2:56 PM [facility] Bilirubin Total 0.2 <=1.2 mg/dL 09/03/2024 2:56 PM [facility] Alkaline Phosphatase 268(H) 40 - 150 U/L 09/03/2024 2:56 PM [facility] AST 40 0 - 45 U/L 09/03/2024 2:56 PM [facility] ALT 37 0 - 50 U/L 09/03/2024 2:56 PM [facility] Bilirubin Direct <0.20 0.00 - 0.30 mg/dL 09/03/2024 2:56 PM [facility] Blood STRUCTURE OF LEFT HAND / Unknown Venipuncture / Unknown 09/03/2024 5:27 AM PHARMACY CUSTOMER CARE SPECIALIST 09/03/2024 5:40 AM [facility]ARM[facility] CUSTOMER CARE SPECIALIST Lisa Bell APRN PROGRAM TECHNICIAN LAB - BLOOD ORDERABLES F inal Result [facility] [address], [address] [place] [address], [facility] [phone] from Last 3 Months or Most Recently Relevant to Health Maintenance Additional Health Concerns Infection Onset Date 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
--- OUTSIDE RECORDS SUMMARY | 2025-05-15 16:50 | XMS_ITS | Clinical Summary ---
Author Organization [employer] [facility] Address [address] [place] [address] Care Team Providers Care Baseball Glove Shaper Name Role Phone [facility], ro Unavailable [phone] Tayler Gomez NP Primary Care Provide r Tayler Gomez NP Unavailable [phone] Wendy Simon MD Unavailable [phone] Cristal Gray DIESEL ENGINE TESTER Unavailable [phone] Michaela Driver Unavailable [phone] Kera Daily MATERIAL ENGINEER Unavailable [phone] Teresa Rincon RN Unavailable [phone] Alberto Bhandari PharmD Unavailable [phone] Allergies Active Allergy Reactions Criticality Noted Date Comments Piperacillin Anaphylaxis,*Unknown High 09/18/2023 Per SNF Per patient, has tolerated Augmentin Tazobactam Anaphylaxis,*Unknown High 09/18/2023 Per SNF Vancomycin Anaphylaxis High 03/25/2024 Medications polyethylene glycoL (Miralax) 17 gram/scoop powder Mix 1 scoop in liquid then take by mouth. Active docusate (Dulcolax Stool Softener, dss,) 100 mg capsule Take 100 mg by mouth once daily. Active L.acid/L.casei/B .bif/B.eduardo/FOS (PROBIOTIC BLEND ORAL) Take by mouth. Activ e nystatin powder (MYCOSTATIN) powderIndication s:Dermatitis Apply 1 Strip topically to affected area(s) [...] Active acetaminophen SR (TYLENOL ARTHRITIS) 650 mg Extended-Release tablet Pt takes 2 tablet by mouth twice daily as needed. Max acetaminophen dose: 4000mg in 24 hrs. 11/22/19 25 Active furosemide (Lasix) 20 mg tabletIndication s:Chronic diastolic (congestive) heart failure (HC) Take 1 Tablet (20 mg) by mouth once daily. Pharmacy: new prescriber 90 Tablet 1 11/22/19 25 Active predniSONE (DELTASONE) 5 mg tabletIndication s:Rheumatoid arthritis, involving unspecified site, unspecified whether rheumatoid factor present (HC) Take 2 Tablets (10 mg) by mouth once daily. Pharmacy: new prescriber 180 Tablet 1 11/22/19 25 Active metoprolol succinate (TOPROL XL) 50 mg sustained-releas e tabletIndication s:Chronic diastolic (congestive) heart failure (HC) Take 1 Tablet (50 mg) by mouth once daily. Pharmacy: new prescriber 90 Tablet 1 11/22/19 25 Active ibuprofen-acetam inophen 125-250 mg tab Take 2 Tablets by mouth once daily if needed. 11/22/19 25 Active ketoconazole 2 % creamIndications :Intertrigo Apply topically to affected area(s) two times daily. 60 g 03/11/20 25 Active amLODIPine 5 mg tablet Take 5 mg by mouth once daily. take 1 tablet 5 mg orally daily Active HYDROmorphone 2 mg tabletIndication s:Chronic pain syndrome Take 1 Tablet (2 mg) by mouth every 4 hours if needed for Pain (max dose 3 per day). 90 Tablet 04/21/20 25 Active amLODIPine 5 mg tabletIndication s:Primary hypertension Take 1 Tablet (5 mg) by mouth once daily. 30 Tablet 2 05/02/20 25 Active naloxone (Narcan) 4 mg/actuation nasal sprayIndications :Chronic pain syndrome Inhale 1 [place] into affected nostril(s) each time if needed for Patient Diff To Arouse or Resp Rate < 8 / min (Overdose). Additional doses may be given every 2 to 3 minutes until emergency medical assistance arrives. 2 Each 04/25/20 25 Active buprenorphine 10 mcg/hr (BUTRANS) 10 mcg/hour transdermal patchIndications :Chronic pain syndrome Apply 1 Patch on dry, clean, hairless skin once weekly. 4 Patch 05/02/20 25 Active gabapentin (NEURONTIN) 300 mg capsuleIndicatio ns:Other chronic pain Take 1 Capsule (300 mg) by mouth three times daily. 270 Capsule 3 05/09/20 25 Active ciprofloxacin (CIPRO) 500 mg tabletIndication s:Wound infection Take 1 Tablet (500 mg) by mouth two times daily before meals for 2 days. 05/13/20 25 025 Active ciprofloxacin (CIPRO) 500 mg tablet Take 500 mg by mouth two times daily before meals. x7 days 06/10/20 25 Active gabapentin (NEURONTIN) 300 mg capsuleIndicatio ns:Other chronic pain Take 1 Capsule (300 mg) by mouth three times daily. 180 Capsule 2 11/19/19 25 Discontinu ed(Reorder (E-cancel not sent)) HYDROmorphone 2 mg tabletIndication s:Chronic pain syndrome Take 1 Tablet (2 mg) by mouth every 4 hours if needed for Pain (max dose 3 per day). 90 Tablet 03/10/20 25 025 Discontinu ed(Reorder (E-cancel not sent)) buprenorphine 15 mcg/hr (Butrans) 15 mcg/hour transdermal patchIndications :Chronic pain syndrome,Rheumat oid arthritis, involving unspecified site, unspecified whether rheumatoid factor present (HC) Apply 1 Patch on dry, clean, hairless skin once weekly. 4 Patch 04/14/20 25 Discontinu ed(*Medica tion adjustment ) cefpodoxime 200 mg tablet Take 200 mg by mouth two times daily. 200 mg orally twice a day for 5 days must administer with meal/food Discontinu ed(*Med complete/R egimen complete/L evel of care change) cefpodoxime 200 mg tabletIndication s:Cellulitis of left abdominal wall Take 2 Tablets (400 mg) by mouth two times daily for 10 days. 40 Tablet 04/19/20 25 025 Discontinu ed(*Availa bility/For mulary change/Cos t of medication ) cephalexin 500 mg capsuleIndicatio ns:skin and skin structure infection Take 1 Capsule (500 mg) by mouth four times daily for 10 days. 40 Capsule 04/20/20 25 025 Active Problems Problem Noted Date Diagnosed Date Demyelinating disease of central nervous system 04/19/2025 Indwelling urinary catheter present 11/07/2024 H/O: upper [...] Encounters Date Type Department Care Team Description 05/15/2025 Nurse Triage [address] [address] Tayler Gomez NP Abdominal Pain; Chills 05/13/2025 11:00 AM CDT Home Care Visit [address] [address] Rupinder Canchola RN SN - LONG VISIT (>90 MINUTES) 05/13/2025 Orders Only [facility] [address] [place] [address] Arleth Nolen NP Lab 05/13/2025 Patient Outreach [facility] Care Management - Advanced Care Team [address] [place] [address] Michaela Driver [facility] (Follow up phone call and 6 mos quarterly check in ) 05/12/2025 10:00 AM CDT Home Care Visit [address] [address] Mallika Teague RN REMOTE MONITORING SN - TELEHEALTH VISIT 05/12/2025 8:00 AM CDT Home Care Visit [address] [address] Nimco Palacios GAS ENGINE OPERATOR COMPRESSORS - HOME VISIT 05/12/[address] [address] Mallika Teague repeat chief (Pain mgmt) 05/11/2025 12:30 PM CDT Home Care Visit [address] [address] Erika Mcgill RN SN - HOME VISIT 05/09/2025 1:00 PM CDT Home Care Visit [address] [address] Rupinder Canchola RN SN - HOME VISIT 05/09/2025 8:30 AM CDT Home Care Visit [address] [address] Nimco Palacios GAS ENGINE OPERATOR COMPRESSORS - HOME VISIT 05/09/[address] [address] Tayler Gomez NP Refill Request 05/09/[address] [address] Wendy Simon MD Abnormal Lab Results (Improving leukocytosis) 05/06/2025 6:30 PM CDT Home Care Visit [address] [address] Maria D Oreilly RN SN - WOUND LONG VISIT (>90 MINUTES) 05/06/2025 Orders Only [facility] [address] [place] [address] Tayler Gomez NP Lab 05/05/2025 8:30 AM CDT Home Care Visit [address] [address] Nimco Palacios GAS ENGINE OPERATOR COMPRESSORS - HOME VISIT 05/03/2025 12:00 PM CDT Home Care Visit [address] [address] Dayanna Cordon RN REMOTE MONITORING SN - TELEHEALTH VISIT 05/02/2025 12:00 PM CDT Home Care Visit [address] [address] Rupinder Canchola RN SN - HOME VISIT 05/02/2025 8:45 AM CDT Home Care Visit [address] [address] Nimco Palacios GAS ENGINE OPERATOR COMPRESSORS - HOME VISIT 05/02/[address] [address] Rupinder Canchola RN Home Care (Labs today.) 04/29/2025 11:00 AM CDT Home Care Visit [address] [address] Rosmery Diaz RN SN - HOME VISIT 04/28/2025 11:00 AM CDT Home Care Visit [address] [address] Mallika Teague RN REMOTE MONITORING SN - TELEHEALTH VISIT 04/28/2025 8:30 AM CDT Home Care Visit [address] [address] Nimco Palacios GAS ENGINE OPERATOR COMPRESSORS - HOME VISIT 04/28/[address] [address] Tayler Gomez NP Abnormal Lab Results (Elevated White blood cell count) 04/27/2025 11:00 AM CDT Home Care Visit [address] [address] Rupinder Canchola RN SN - HOME VISIT 04/27/2025 Orders Only [facility] [address] [place] [address] Tayler Gomez NP Lab 04/25/2025 11:30 AM CDT Home Care Visit [address] [address] Rosmery Diaz RN SN - HOME VISIT 04/25/2025 8:45 AM CDT Home Care Visit [address] [address] Nimco Palacios GAS ENGINE OPERATOR COMPRESSORS - HOME VISIT 04/25/2025 Orders Only [address] [address] Tayler Gomez NP Lab 04/22/2025 11:30 AM CDT Home Care Visit [address] [address] Rosmery Diaz RN SN - HOME VISIT 04/21/2025 2:00 PM CDT Home Care Visit [address] [address] Maddi Culver RN REMOTE MONITORING SN - TELEHEALTH VISIT 04/20/2025 1:30 PM CDT Home Care Visit [address] [address] Rupinder Canchola RN SN - HOME VISIT 04/20/2025 8:45 AM CDT Home Care Visit [address] [address] Nimco Palacios GAS ENGINE OPERATOR COMPRESSORS - HOME VISIT 04/20/2025 Nurse Triage [address] [address] Tayler Gomez NP Medication Management 04/19/2025 10:30 AM CDT Home Visit [address] [address] Tayler Gomez NP Senior [facility] ([facility]) 04/18/2025 11:30 AM CDT Home Care Visit [address] [address] Rupinder Canchola RN SN - HOME VISIT 04/18/2025 8:45 AM CDT Home Care Visit [address] [address] Nimco Palacios GAS ENGINE OPERATOR COMPRESSORS - HOME VISIT 04/18/2025 5:15 AM CDT Home Care Visit [address] [address] Sol Christine RN SN - WOUND/OSTOMY CHART CONSULT 04/18/2025 Travel 04/16/2025 1:30 PM CDT Home Care Visit [address] [address] Rupinder Canchola RN SN - HOME VISIT 04/16/[address] [address] Wendy Simon MD Home Care (new skin issue) 04/14/2025 10:30 AM CDT Home Care Visit [address] [address] Rosmery Diaz RN SN - OASIS RESUMPTION OF CARE 04/14/[address] [address] Tayler Gomez NP Refill Request (Butrans transdermal patch) 04/14/2025 Nurse Triage [address] [address] Tayler Gomez NP needs meds (Butrans transdermal patch) 04/13/2025 Orders Only [facility] Scanner 1 scan: (1-Ord) HARTLEY H+C, RESULTS, 04/13/2025 04/13/2025 Home Health Resumption of Care Planning [address] [address] 04/13/2025 Patient Outreach [facility] Care Management - Advanced Care Team [address] [place] [address] Kera Daily LSW [facility] (EFREN follow up regarding patient's discharge plan from [facility]) 04/11/2025 11:00 AM CDT Ancillary Procedure [facility] [address] [place] [address] 04/11/2025 Home Care Visit [address] [address] Rupinder Canchola RN CARE COORDINATION 04/11/2025 Home Care Visit [address] [address] Rupinder Canchola RN SN - OASIS TRANSFER 04/11/2025 Patient Outreach [facility] Care Management - Advanced Care Team [address] [place] [address] Kera Daily LSW [facility] (EFREN patient hospitalized at [facility] on March) 04/08/2025 11:30 AM CDT Home Care Visit [address] [address] Rupinder Canchola RN SN - HOME VISIT 04/08/2025 Orders Only [facility] Scanner 1 scan: (1-Ord) GENMARK DX, RESULTS, 04/08/2025 04/08/2025 Nurse Triage [address] [address] Tayler Gomez NP [facility] (fever) 04/07/2025 9:45 AM CDT Home Care Visit [address] [address] Nimco Palacios GAS ENGINE OPERATOR COMPRESSORS - HOME VISIT 04/04/2025 11:30 AM CDT Home Care Visit [address] [address] Rupinder Canchola RN SN - HOME VISIT 04/04/2025 8:30 AM CDT Home Care Visit [address] [address] Nimco Palacios GAS ENGINE OPERATOR COMPRESSORS - HOME VISIT 04/01/2025 12:00 PM CDT Home Care Visit [address] [address] Rosmery Diaz RN SN - HOME VISIT 03/31/2025 8:30 AM CDT Home Care Visit [address] [address] Nimco Palacios GAS ENGINE OPERATOR COMPRESSORS - HOME VISIT 03/31/2025 Patient Outreach [facility] Care Management - Advanced Care Team [address] [place] [address] Catherine Dinh RN [facility] (Follow-up pain) 03/30/2025 11:30 AM CDT Home Care Visit [address] [address] Rupinder Canchola, RN SN - HOME VISIT 03/28/2025 12:30 PM CDT Home Care Visit [address] [address] Rupinder Canchola, RN SN - HOME VISIT 03/28/2025 8:30 AM CDT Home Care Visit [address] [address] Nimco Palacios GAS ENGINE OPERATOR COMPRESSORS - HOME VISIT 03/25/2025 10:00 PM CDT Home Care Visit [address] [address] Alaina Barone RN SN - AFTER HOURS HOME VISIT 03/25/2025 1:30 PM CDT Home Care Visit [address] [address] Rosmery Diaz RN SN - HOME VISIT 03/25/2025 Nurse Triage [address] [address] Tayler Gomez NP Ostomy 03/24/2025 8:30 AM CDT Home Care Visit [address] [address] Nimco Palacios GAS ENGINE OPERATOR COMPRESSORS - HOME VISIT 03/23/2025 11:00 AM CDT Home Care Visit [address] [address] Rupinder Canchola, RN SN - HOME VISIT 03/21/2025 2:00 PM CDT Home Care Visit [address] [address] Rupinder Canchola, RN SN - HOME VISIT 03/21/2025 8:30 AM CDT Home Care Visit [address] [address] Nimco Palacios GAS ENGINE OPERATOR COMPRESSORS - HOME VISIT 03/21/2025 12:45 AM CDT Home Care Visit [address] [address] Sol Christine, MEME SN - WOUND/OSTOMY CHART CONSULT 03/18/2025 11:30 AM CDT Home Care Visit [address] [address] Rosmery Diaz RN SN - HOME VISIT 03/17/2025 8:30 AM CDT Home Care Visit [address] [address] Nimco Palacios GAS ENGINE OPERATOR COMPRESSORS - HOME VISIT 03/16/2025 11:30 AM CDT Home Care Visit [address] [address] Rosmery Diaz, MEME SN - OASIS RECERTIFICATION 03/16/2025 Plan of Care Documentation [address] [address] 03/14/2025 11:00 AM CDT Home Care Visit [address] [address] Rupinder Canchola RN SN - LONG VISIT (>90 MINUTES) 03/14/2025 8:45 AM CDT Home Care Visit [address] [address] Nimco Palacios GAS ENGINE OPERATOR COMPRESSORS - HOME VISIT 03/14/2025 Orders Only [facility] [address] [place] [address] Wendy Simon MD Lab 03/14/2025 Orders Only [address] [address] Rupinder Canchola RN <No scans attached> 03/11/2025 9:30 AM CDT Home Care Visit [address] [address] Rupinder Canchola RN SN - LONG VISIT (>90 MINUTES) 03/11/2025 8:30 AM CDT Home Care Visit [address] [address] Nimco Palacios GAS ENGINE OPERATOR COMPRESSORS - HOME VISIT 03/10/2025 12:30 PM CDT Home Visit [address] [address] Tayler Gomez NP [facility] 03/09/2025 12:30 PM CDT Home Care Visit [address] [address] Rupinder Canchola RN SN - HOME VISIT 03/09/2025 Travel 03/08/2025 8:30 AM CDT Home Care Visit [address] [address] Nimco Palacios GAS ENGINE OPERATOR COMPRESSORS - HOME VISIT 03/07/2025 8:30 AM CDT Home Care Visit [address] [address] Shital Delcid RN SN - HOME VISIT 03/04/2025 2:00 PM CDT Home Care Visit [address] [address] Rupinder Canchola RN SN - HOME VISIT 03/04/2025 Orders Only [facility] Scanner 1 scan: (1-Ord) INCOMING RECORDS-AUDIOGRAM, JOURNEY AUDIOLOGY AND HEARING CARE, 03/04/2025 03/02/2025 8:30 AM CDT Home Care Visit [address] [address] Nimco Palacios GAS ENGINE OPERATOR COMPRESSORS - HOME VISIT 02/28/2025 12:00 PM CDT Home Care Visit [address] [address] Rosmery Diaz RN SN - HOME VISIT 02/28/2025 8:30 AM CDT Home Care Visit [address] [address] Nimco Palacios GAS ENGINE OPERATOR COMPRESSORS - HOME VISIT 02/25/2025 11:30 AM CDT Home Care Visit [address] [address] Rosmery Diaz RN SN - HOME VISIT 02/24/2025 9:15 AM CDT Home Care Visit [address] [address] Nimco Palacios GAS ENGINE OPERATOR COMPRESSORS - HOME VISIT 02/22/2025 Patient Outreach [facility] Care Management - Advanced Care Team [address] [place] [address] Michaela Driver [facility] (Care coordination - ENT referral) 02/21/2025 11:00 AM CDT Home Care Visit [address] [address] Rupinder Canchola RN SN - HOME VISIT 02/21/2025 10:00 AM CDT Home Care Visit [address] [address] Nimco Palacios GAS ENGINE OPERATOR COMPRESSORS - HOME VISIT 02/18/2025 2:00 PM CDT Home Care Visit [address] [address] Rupinder Canchola RN SN - LONG VISIT (>90 MINUTES) 02/17/2025 9:15 AM CDT Home Care Visit [address] [address] Nimco Palacios GAS ENGINE OPERATOR COMPRESSORS - HOME VISIT 02/16/2025 3:00 PM CDT Home Care Visit [address] [address] Rosmery Diaz, MEME SN - PRN HOME VISIT 02/14/2025 10:15 AM CDT Home Care Visit [address] [address] Nimco Palacios GAS ENGINE OPERATOR COMPRESSORS - HOME VISIT 02/14/2025 8:45 AM CDT Home Care Visit [address] [address] Rosmery Diaz RN SN - HOME VISIT from Last 3 Months [...] on file Legal Sex Female 7:[address] MAGISTRATE Gender Identity Not on file Sexual Orientation Not on file Obstetrics History Last Filed Vital Signs Vital Sign Reading Time Taken Comments Blood Pressure 130/78 05/13/2025 1:30 PM CDT Pulse 68 05/13/2025 1:30 PM CDT Temperature 36.3 C (97.4 F) 05/13/2025 1:30 PM CDT Respiratory Rate 18 05/13/2025 1:30 PM CDT Oxygen Saturation 98% 05/13/2025 1:30 PM CDT Inhaled Oxygen Concentration - - Weight 62.6 kg (138 lb) 03/16/2025 12:47 PM CDT Height 152.4 cm (5') 03/16/2025 12:47 PM CDT Body Mass Index 26.95 03/16/2025 12:47 PM CDT Plan of Treatment Upcoming Encounters Date Type Department Care Team (Late st Contact Info) Description 05/16/2025 4:00 AM CDT Home Care Visit [facility] [address] [address] Rosmery Diaz RN [address] [place] [address] 05/16/2025 8:30 AM CDT Home Care Visit [address] [address] Nimco Palacios 05/18/2025 4:00 AM CDT Appointment [address] [address] Rosmery Diaz RN [address] [place] [address] 06/02/2025 10:30 AM CDT Home Visit [facility] [employer] [address] [address] Tayler Gomez NP [address] [place] [address] Health Maintenance Due Date Last Done Comments [...] 1-dose 75+ series) 2021 COVID-19 vaccine series (2023- season) 2024 Influenza Vaccine (#1) 2025 07/18/2009 Tetanus booster 04/22/2028 04/22/2018, 04/22/2015 Hepatitis B series for 19+ Aged Out N o longer eligible based on patient's age to complete this topic Procedures Procedure Name Priority Date/Time Associated Diagnosis Comments C-REACTIVE PROTEIN Routine 05/13/2025 2: 08 PM CDT Demyelinating disease of central nervous system (HC) COMP METABOLIC PANEL Routine 05/13/2025 2:08 PM CDT Demyelinating disease of central nervous system (HC) CBC WITH AUTO DIFFERENTIAL Routine 05/13/2025 2:08 PM CDT Demyelinating disease of central nervous system (HC) CBC WITH AUTO DIFFERENTIAL Routine 05/06/2025 7:40 PM CDT Cellulitis of left abdominal wall C-REACTIVE PROTEIN Routine 05/06/2025 7 :40 PM CDT Cellulitis of left abdominal wall AST (SGOT) Routine 05/06/2025 7:40 PM CDT Cellulitis of left abdominal wall ALT (SGPT) Routine 05/06/2025 7:40 PM CDT Cellulitis of left abdominal wall CBC WITH AUTO DIFFERENTIAL Routine 05/06/2025 7:40 PM CDT Cellulitis of left abdominal wall COMP METABOLIC PANEL Routine 04/27/2025 1:28 PM CDT Cellulitis of abdominal wall CBC WITH AUTO DIFFERENTIAL Routine 04/27/2025 1:28 PM CDT Cellulitis of abdominal wall C-REACTIVE PROTEIN Routine 04/27/2025 1: 28 PM CDT Cellulitis of abdominal wall SCAN-LABORATORY REPORT 04/13/2025 12:00 AM CDT ECHO TTE COMPLETE WO CONTRAST Routine 04/11/2025 11:45 AM CDT Murmur Edema SCAN-LABORATORY REPORT 04/08/2025 12:00 AM CDT HEMOGLOBIN A1C Routine 03/14/2025 2:51 PM CDT 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 C-REACTIVE PROTEIN 14.7(H) <8.0 mg/L [facility] Blood BLOOD SPECIMEN / Unknown 05/13/2025 2:08 PM CDT 05/13/2025 2:08 PM CDT Arleth Nolen BUSINESS ARCHITECT CHEMISTRY Nini l Result [facility] [facility] [address] [place] [address], [facility] [address] [place] [address] * (ABNORMAL) CBC AND DIFFERENTIAL (05/13/2025 2:08 PM CDT) Only the most recent of2 resultswithin the time period is included. WHITE BLOOD CELL COUNT 13.5(H) 3.8 - 10.8 Thousand/ uL [facility] RED BLOOD CELL COUNT 4.40 3.80 - 5.10 Million/u L [facility] HEMOGLOBIN 13.5 11.7 - 15.5 g/dL [facility] HEMATOCRIT 42.5 35.0 - 45.0 % [facility] MCV 96.6 80.0 - 100.0 fL [facility] MCH 30.7 27.0 - 33.0 pg [facility] MCHC 31.8(L) 32.0 - 36.0 g/dL [facility] Comment: For adults, a slight decrease in the calculated MCHC value (in the range of 30 to 32 g/dL) is most likely not clinically significant; however, it should be interpreted with caution in correlation with other red cell parameters and the patient's clinical condition. RDW 13.2 11.0 - 15.0 % [facility] PLATELET COUNT 288 140 - 400 Thousand/ uL [facility] MPV 10.2 7.5 - 12.5 fL [facility] ABSOLUTE NEUTROPHILS 10,908(H) 1,500 - 7,800 cells/uL [facility] ABSOLUTE LYMPHOCYTES 1,796 850 - 3,900 cells/uL [facility] ABSOLUTE MONOCYTES 554 200 - 950 cells/uL [facility] ABSOLUTE EOSINOPHILS 176 15 - 500 cells/uL [facility] ABSOLUTE BASOPHILS 68 0 - 200 cells/uL [facility] NEUTROPHILS 80.8 % [facility] LYMPHOCYTES 13.3 % [facility] MONOCYTES 4.1 % [facility] EOSINOPHILS 1.3 % [facility] BASOPHILS 0.5 % [facility] CBC (INCLUDES DIFF/PLT) COMMENTS [facility] Comment: Review of peripheral smear confirms automated results. Blood BLOOD SPECIMEN / Unknown 05/13/2025 2:08 PM CDT 05/13/2025 2:08 PM CDT Arleth Nolen BUSINESS ARCHITECT HEMATOLOGY Inni l Result [facility] [address] [place] [address], [place] [phone] [facility] [address] [place] [address] * (ABNORMAL) COMP METABOLIC PANEL (05/13/2025 2:08 PM CDT) Only the most recent of2 resultswithin the time period is included. GLUCOSE 144(H) 65 - 99 mg/dL [facility] Comment: Fasting reference interval For someone without known diabetes, a glucose value >125 mg/dL indicates that they may have diabetes and this should be confirmed with a follow-up test. UREA NITROGEN (BUN) 28(H) 7 - 25 mg/dL [facility] CREATININE 0.38(L) 0.60 - 1.00 mg/dL [facility] Comment: Verified by repeat analysis. EGFR 103 > OR = 60 mL/min/1.7 3m2 [facility] BUN/CREATININE RATIO 74(H) 6 - 22 (calc) [facility] SODIUM 139 135 - 146 mmol/L [facility] POTASSIUM 4.7 3.5 - 5.3 mmol/L [facility] CHLORIDE 99 98 - 110 mmol/L [facility] CARBON DIOXIDE 25 20 - 32 mmol/L [facility] CALCIUM 8.8 8.6 - 10.4 mg/dL [facility] PROTEIN, TOTAL 5.5(L) 6.1 - 8.1 g/dL [facility] ALBUMIN 3.7 3.6 - 5.1 g/dL [facility] GLOBULIN 1.8(L) 1.9 - 3.7 g/dL (calc) [facility] ALBUMIN/GLOBULIN RATIO 2.1 1.0 - 2.5 (calc) [facility] BILIRUBIN, TOTAL 0.4 0.2 - 1.2 mg/dL [facility] ALKALINE PHOSPHATASE 100 37 - 153 U/L [facility] AST 13 10 - 35 U/L [facility] ALT 21 6 - 29 U/L [facility] Blood BLOOD SPECIMEN / Unknown 05/13/2025 2:08 PM CDT 05/13/2025 2:08 PM CDT Arleth Nolen BUSINESS ARCHITECT CHEMISTRY Nini l Result [facility] [facility] [address] [place] [address], [employer] [facility] [address] [place] [address] * (ABNORMAL) CBC WITH AUTO DIFFERENTIAL (05/06/2025 7:40 PM CDT) WHITE BLOOD COUNT 11.6(H) 4.5 - 11.0 thou/cu mm 05/06/2025 8:29 PM CDT [facility] RED BLOOD COUNT 3.94(L) 4.00 - 5.20 mil/cu mm 05/06/2025 8:29 PM CDT [facility] HEMOGLOBIN 12.2 12.0 - 16.0 g/dL 05/06/2025 8:29 PM CDT [facility] HEMATOCRIT 37.9 33.0 - 51.0 % 05/06/2025 8:29 PM CDT [facility] MCV 96 80 - 100 fL 05/06/2025 8:29 PM CDT [facility] MCH 31.0 26.0 - 34.0 pg 05/06/2025 8:29 PM CDT [facility] MCHC 32.2 32.0 - 36.0 g/dL 05/06/2025 8:29 PM CDT [facility] RDW 14.0 11.5 - 15.5 % 05/06/2025 8:29 PM CDT [facility] PLATELET COUNT 208 140 - 440 thou/cu mm 05/06/2025 8:29 PM CDT [facility] MPV 10.2 6.5 - 11.0 fL 05/06/2025 8:29 PM CDT [facility] NRBC 0.0 % 05/06/2025 8:29 PM CDT [facility] ABS NRBC 0.0 thou /cu mm 05/06/2025 8:29 PM CDT [facility] % NEUT 77.2 % 05/06/2025 8:29 PM CDT [facility] % LYMPH 14.7 % 05/06/2025 8:29 PM CDT [facility] % MONO 4.8 % 05/06/2025 8:29 PM CDT [facility] % EOS 0.9 % 05/06/2025 8:29 PM CDT [facility] % BASO 0.3 % 05/06/2025 8:29 PM CDT [facility] % IMMATURE GRAN (METAS,MYELOS,KY OS) 2.1 % 05/06/2025 8:29 PM CDT [facility] ABSOLUTE NEUTROPHILS 8.9(H) 1.7 - 7.0 thou/cu mm 05/06/2025 8:29 PM CDT [facility] ABSOLUTE LYMPHOCYTES 1.7 0.9 - 2.9 thou/cu mm 05/06/2025 8:29 PM CDT [facility] ABSOLUTE MONOCYTES 0.6 <0.9 thou/cu mm 05/06/2025 8:29 PM CDT [facility] ABSOLUTE EOSINOPHILS 0.1 <0.5 thou/cu mm 05/06/2025 8:29 PM CDT [facility] ABSOLUTE BASOPHILS 0.0 <0.3 thou/cu mm 05/06/2025 8:29 PM CDT [facility] ABSOLUTE IMMATURE GRANULOCYTES(MET ,MYELOS,PROS) 0.2 <0.3 thou/cu mm 05/06/2025 8:29 PM CDT [facility] Blood BLOOD SPECIMEN / Unknown Non-Lab Venipuncture / Unknown 05/06/2025 7:40 PM CDT 05/06/2025 8:25 PM CDT Tayler Gomez NP HEMATOLOGY Final Result [facility] [address] [place] [address], [place] [phone] * ALT (SGPT) (05/06/2025 7:40 PM CDT) ALT (SGPT) 29 10 - 35 IU/L 05/06/2025 8:46 PM CDT [facility] Blood BLOOD SPECIMEN / Unknown Non-Lab Venipuncture / Unknown 05/06/2025 7:40 PM CDT 05/06/2025 8:25 PM CDT Tayler Gomez NP CHEMISTRY Final Result [facility] [address] [place] [address], [place] [phone] * AST (SGOT) (05/06/2025 7:40 PM CDT) AST (SGOT) 17 10 - 35 IU/L 05/06/2025 8:46 PM CDT [facility] Blood BLOOD SPECIMEN / Unknown Non-Lab Venipuncture / Unknown 05/06/2025 7:40 PM CDT 05/06/2025 8:25 PM CDT us Tayler Gomez NP CHEMISTRY Final Result [facility] [address] [place] [address], [place] [phone] * SCAN-LABORATORY REPORT (04/13/2025 12:00 AM CDT) Only the most recent of2 resultswithin the time period is included. us Scanner OTHER Final Result * ECHO TTE COMPLETE WO CONTRAST (04/11/2025 11:45 AM CDT) AORTIC VALVE MEAN PG 9 mmHg EJECTION FRACTION 71 % PEAK TR VELOCITY 4.7 m/s LVEDD 3.4 cm EJECTION FRACTION 65 - 70% Anatomical Region Laterality Modality Ultrasound 04/11/2025 11:1 0 AM CDT Narrative 04/11/2025 1:05 PM CDT ECHOCARDIOGRAM PRERNA MAJOR : 1945 79 years Study Date: 04/11/2025 11:10:34 AM Gender: F BP: 208/107 mmHg Height: 152.00 cm BSA: 1.62 m Weight: 65.00 kg Tech: VINCENT Referring MD: LUCÍA RIBEIRO Site: [facility] Reading Location: Mobile- Patient Location: Inpatient. Procedure: 2D, Color Doppler and Spectral Doppler. Indication for study: Murmur; Edema Cardiac Rhythm: Regular.Study quality: Technically limited. Imaging limitations: This study was subject to imaging limitations due to body habitus and a prominent lung artifact. Final Impressions: 1. Technically limited exam. 2. Normal LV size, borderline wall thickness, normal global systolic function with an estimated EF of 65 - 70%. 3. Right ventricular cavity size is not well visualized, global systolic RV function is not well visualized. 4. The aortic valve is sclerotic, mild stenosis and no regurgitation. 5. The mitral valve is sclerotic, mild to moderate mitral regurgitation. 6. Tricuspid valve is not well visualized, mild-moderate tricuspid regurgitation. 7. Intermediate estimated RA (8 mmHg) and severely elevated estimated RV systolic (95 mmHg) pressures. 8. No pericardial effusion. Comparison Compared to prior exam of 03/30/2024: - Severely elevated estimated RVSP compatible with severe pulmonary hypertension. Previously estimated RVSP 49 mmHg + RA pressure. The RV is poorly visualized on the current study. Chamber Sizes and Function Normal left ventricular size, borderline wall thickness, normal global systolic function with an estimated EF of 65 - 70%. No resting regional wall motion abnormality visualized. Left atrial size is normal. Right ventricular cavity size is not well visualized, global systolic RV function is not well visualized. The right atrium is not well visualized. The pulmonary artery is not well visualized. The sinus of Valsalva is normal sized. The ascending aorta is normal sized. Valves, RV Pressures and Diastolic Function The aortic valve is sclerotic, mild stenosis and no regurgitation. The mitral valve is sclerotic, mild to moderate mitral regurgitation. Spectral Doppler shows Grade 1 pattern of LV diastolic filling. The tricuspid valve is not well visualized, mild-moderate tricuspid regurgitation. The tricuspid regurgitant velocity is 4.7 m/s, the estimated right ventricular systolic pressure is 87 mmHg plus right atrial pressure. The pulmonic valve is not well visualized. Trace pulmonary regurgitation. Masses, Effusion, Shunts There is no pericardial effusion. The inferior vena cava is normal sized, respiratory size variation less than 50%. No left to right shunting was detected by limited color flow Doppler interrogation of the interatrial septum. MEASUREMENTS AND CALCULATIONS 2-D Measurements and LV Function: LVID (d) 3.4 cm LV FS% (2D) 45 % LVID (s) 1.9 cm LVOT diameter 2.0 cm IVS (d) 1.2 cm HR 97 bpm LVPW (d) 1.2 cm Ao Sinus 2.8 cm Ao Sinus ULN 3.7 cm Asc Ao 3.2 cm Asc Ao ULN 3.9 cm LA 2.7 cm Diastology: Mitral Tissue Doppler E Peak 1.0 m/s e', Lateral 0.10 m/s A Peak 1.7 m/s E/A 0.6 DT 202 msec Aortic Valve: Vmax 2.3 m/s MELITON (V) 1.46 cm VTI 0.47 m MELITON (I) 1.55 cm LVOT V max 1.0 m/s Max PG 21 mmHg LVOT VTI 0.23 m Mean PG 9 mmHg SV 73 ml Dim Index 0.48 SV index 45 ml/m CO 7.1 l/min CI 4.4 l/min/m Mitral Valve: MVA 3.8 cm MV P 1/2 59 msec Tricuspid Valve and estimated PA pressures: TR Vmax 4.7 m/s TAPSE 1.9 cm TR maxG 87 mmHg . This study was interpreted by an [facility] accredited facility. Final Procedure Note Santy Vera MD - 04/11/2025 ECHOCARDIOGRAM PRERNA MAJOR : 1945 79 years Study Date: 04/11/2025 11:10:34 AM Gender: F BP: 208/107 mmHg Height: 152.00 cm BSA: 1.62 m Weight: 65.00 kg Tech: VINCENT Referring MD: LUCÍA RIBEIRO Site: [facility] Reading Location: [place]- Patient Location: Inpatient. Procedure: 2D, Color Doppler and Spectral Doppler. Indication for study: Murmur; Edema Cardiac Rhythm: Regular.Study quality: Technically limited. Imaging limitations: This study was subject to imaging limitations due tobody habitus and a prominent lung artifact. Final Impressions: 1. Technically limited exam. 2. Normal LV size, borderline wall thickness, normal global systolicfunction with an estimated EF of 65 - 70%. 3. Right ventricular cavity size is not well visualized, global systolicRV function is not well visualized. 4. The aortic valve is sclerotic, mild stenosis and no regurgitation. 5. The mitral valve is sclerotic, mild to moderate mitralregurgitation. 6. Tricuspid valve is not well visualized, mild-moderate tricuspidregurgitation. 7. Intermediate estimated RA (8 mmHg) and severely elevated estimated RVsystolic (95 mmHg) pressures. 8. No pericardial effusion. Comparison Compared to prior exam of 03/30/2024: - Severely elevated estimated RVSP compatible with severe pulmonaryhypertension. Previously estimated RVSP 49 mmHg + RA pressure. The RV ispoorly visualized on the current study. Chamber Sizes and Function Normal left ventricular size, borderline wall thickness, normal globalsystolic function with an estimated EF of 65 - 70%. No resting regionalwall motion abnormality visualized. Left atrial size is normal. Rightventricular cavity size is not well visualized, global systolic RVfunction is not well visualized. The right atrium is not well visualized.The pulmonary artery is not well visualized. The sinus of Valsalva isnormal sized. The ascending aorta is normal sized. Valves, RV Pressures and Diastolic Function The aortic valve is sclerotic, mild stenosis and no regurgitation. Themitral valve is sclerotic, mild to moderate mitral regurgitation. SpectralDoppler shows Grade 1 pattern of LV diastolic filling. The tricuspid valveis not well visualized, mild-moderate tricuspid regurgitation. Thetricuspid regurgitant velocity is 4.7 m/s, the estimated right ventricularsystolic pressure is 87 mmHg plus right atrial pressure. The pulmonicvalve is not well visualized. Trace pulmonary regurgitation. Masses, Effusion, Shunts There is no pericardial effusion. The inferior vena cava is normal sized,respiratory size variation less than 50%. No left to right shunting wasdetected by limited color flow Doppler interrogation of the interatrialseptum. MEASUREMENTS AND CALCULATIONS 2-D Measurements and LV Function: LVID (d) 3.4 cm LV FS% (2D) 45 % LVID (s) 1.9 cm LVOT diameter 2.0 cm IVS (d) 1.2 cm HR 97 bpm LVPW (d) 1.2 cm Ao Sinus 2.8 cm Ao Sinus ULN 3.7 cm Asc Ao 3.2 cm Asc Ao ULN 3.9 cm LA 2.7 cm Diastology: Mitral Tissue Doppler E Peak 1.0 m/s e', Lateral 0.10 m/s A Peak 1.7 m/s E/A 0.6 DT 202 msec Aortic Valve: Vmax 2.3 m/s MELITON (V) 1.46 cm VTI 0.47 m MELITON (I) 1.55 cm LVOT V max 1.0 m/s Max PG 21 mmHg LVOT VTI 0.23 m Mean PG 9 mmHg SV 73 ml Dim Index 0.48 SV index 45 ml/m CO 7.1 l/min CI 4.4 l/min/m Mitral Valve: MVA 3.8 cm MV P 1/2 59 msec Tricuspid Valve and estimated PA pressures: TR Vmax 4.7 m/s TAPSE 1.9 cm TR maxG 87 mmHg . This study was interpreted by an [facility] accredited facility. Final Lucía Ribeiro MD ECHO ORD Final Resu lt * (ABNORMAL) HEMOGLOBIN A1C (03/14/2025 2:51 PM CDT) HEMOGLOBIN A1C 6.8(H) <5.7 % [employer] dequan Carroll Comment: For someone without known diabetes, [...] Wendy Simon MD CHEMISTRY Final Resu lt userfox [facility] [address] [place] [address], [facility] [address] [place] [address] * (ABNORMAL) BASIC METABOLIC PANEL (03/14/2025 2:51 PM CDT) [facility] GLUCOSE 94 65 - 99 mg/dL [employer] dequan Carroll Comment: Fasting reference interval UREA NITROGEN (BUN) 24 7 - 25 mg/dL [employer] dequan Carroll Comment: Verified by repeat analysis. CREATININE 0.34(L) 0.60 - 1.00 mg/dL [facility] Comment: Verified by repeat analysis. EGFR 105 > OR = 60 mL/min/1.7 3m2 [facility] BUN/CREATININE RATIO 71(H) 6 - 22 (calc) [...] Wendy Simon MD CHEMISTRY Final Resu lt [facility]fox [facility] [address] [place] [address], [facility] [address] [place] [address] * SCAN [facility] (03/04/2025 12:00 AM CDT) Scanner OTHER Final Result from Last 3 Months Additional Health Concerns Infection Onset Date Last Indicated MRSA Clearance Comment:Hx MRSA 12/02/13 @ [place] 03/25/2024 03/25/2024 Insurance HC UCARE MEDICARE PDGM UCARE MEDICARE ADVANTAGE MR Advance Directives Documents on File Type Date Recorded 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 President 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 Bank Expl 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 POLST 02/08/2025 Power of Welder Gas Tungsten Arc 03/23/2024 03/23/2024 Healthcare Directive 03/23/2024 024 * DNR (Latest Code Status on File) Date Activated Date Inactivated Comments 03/24/2024 5:28 PM 03/31/2024 4:05 PM Question Answer Comments Code Status Discussion: Reviewed Preferences Care Teams Baseball Glove Shaper Relationship Specialty Start Date End Date Tayler Gomez NP [address] [place] [address] PCP - General Nurse Practitioner - Adult 11/02/24 [facility], Met [address] [place] [address] 09/17/24 Tayler Gomez NP [address] [place] [address] [facility] Nurse Practitioner - Adult 11/02/24 Wendy Simon MD [address] [place] [address] [phone] [facility] Family Practice 11/02/24 Cristal Gray CMA [address] [place], [place] [phone] Japanese Tutor 11/03/24 Michaela Driver [address] [place], [place] [phone] [facility] Care Guide 11/05/24 Kera Daily LSW [address] [place], [place] [phone] [facility] 11/05/24 Teresa Rincon, RN [address] [place], [place] [phone] [facility] Registered Nurse 03/05/25 Alberto Bhandari, PharmD Pharmacist Medication Management Pharmacology 03/28/25
--- OUTSIDE RECORDS SUMMARY | 2025-05-15 16:50 | XMS_ITS | Clinical Summary ---
Author Organization [facility] Address [address] [place] [address] Phone Care Team Providers Care Music Executive Name Role Phone Flo Mckeon MD Primary Care Provider [phone] Medications ibuprofen (ADVIL,MOTRIN) 400 MG tablet prn [...] INTERFACED INSURANCE PM INTERFACED INSURANCE Care Teams Music Executive Relationship Specialty Start Date End Date Flo Mckeon MD [address] [place] [address] PCP - General 05/11/24
--- OUTSIDE RECORDS SUMMARY | 2025-05-15 16:51 | XMS_ITS | CCD ---
Author Name Interface, [id number] lity Address [address] [place] [address] [facility] Address [address] [place] [address] Reason for Visit Diagnostic Results Date Type Test Units Lower Limit Upper Limit Result Flag Comments Status Ordered By Specimen Source Lab Address 09/10 [facility] other lab See attache lopez Social History Date Name Value Sex Female
--- OUTSIDE RECORDS SUMMARY | 2025-05-15 16:51 | XMS_ITS | CCD ---
Author Name Interface, [id number] lity Address [address] [place] [address] [address] [facility] Address [address] [place] [address] Reason for Visit Diagnostic Results Date Type Test Units Lower Limit Upper Limit Result Flag Comments Status Ordered By Specimen Source Lab Address 09/10 [facility] other lab See attache lopez Social History Date Name Value Sex Female
--- OUTSIDE RECORDS SUMMARY | 2025-05-15 16:51 | XMS_ITS | Clinical Summary ---
Author Organization [facility] Address [address], [place] [address] Care Team Providers Care Director Of Social Services Name Role Phone Flo Mckeon MD Primary Care Provider + [phone] Source Comments You are receiving this document as you are listed as the primary care provider,follow-up provider, or the patient has been referred to you for consultation.This is in compliance with the Medicare and[facility] EHR Incentive Program,which states Providers who transition their patient to another setting of careor provider of care or refers their patient to another provider of care shouldprovide summary care record for each transition of care or referral. [facility] Medications acetaminophen (TYLENOL ARTHRITIS) 650 MG controlled release tablet as needed Activ e furosemide (LASIX) 20 MG tablet Daily 06/11/2021 Active diphenhydrAMINE- APAP 25-500 MG tablet Bedtime as needed Active predniSONE (DELTASONE) 5 MG tablet 10 mg daily. 06/11/2021 Active aspirin EC 81 MG enteric coated tablet Daily Active pseudoephedrine ([id number]) 120 MG 12 hour release tablet Daily [...] (1 - 2023- season) 2024 Influenza Vaccine (#1) 2025 07/18/2009 DTaP/Tdap/Td Vaccine (5 - Tdap) [...] Negative (Non Reactive) 06/28/2021 7:52 PM CDT [facility] Comment:Antibodies to HCV no t detected. Does not exclude the possiblity of exposure to HCV. Blood Venipuncture / Unknown 06/28/2021 2:27 PM CDT 06/28/2021 2:28 PM CDT us Lorenza Q Black DO LAB_1 Final Result [facility] [address] [place] [address], [facility] from Last 3 Months or Most Recently Relevant to Health Maintenance Insurance AETNA MEDICARE REPLACEMENT Care Teams Director Of Social Services Relationship Specialty Start Date End Date Flo Mckeon MD [address] [place], [place] [phone] PCP - General 06/21/21
--- OUTSIDE RECORDS SUMMARY | 2025-05-15 16:51 | XMS_ITS | Clinical Summary ---
Author Organization [facility] Address [address] [place] [address] Care Team Providers Care Sugar Mixer Name Role Phone None Reported, Pcp Primary Care Provider Unavail able Source Comments Patient records contain information from all sites at [facility]. For routine questions regarding patient records, call [phone] during business hours, M-F 8:00 AM - 5:00 PM Central Time. Record requests for emergency care only can be directed to [phone] at any time.[facility] Allergies Active Allergy Reactions Criticality Noted [...] = 0.6 oz pur e alcohol) [facility] Utilities Answer Date Recorded In the [...] your living situation today? [facility] 10/19/2023 Comments No Sex and Gender Information Value Date Recorded Sex Assigned at Not on file Legal Sex Female 2:28 PM ELECTRIC SWITCH REPAIRER Gender Identity Not on file Sexual Orientation Not on file Last Filed Vital Signs Vital Sign Reading Time Taken Comments Blood Pressure 110/68 11/28/2023 8:43 AM ELECTRIC SWITCH REPAIRER Pulse 76 11/28/2023 8:43 AM ELECTRIC SWITCH REPAIRER Temperature 36.7 C (98 F) 11/28/2023 8:43 AM ELECTRIC SWITCH REPAIRER Respiratory Rate 18 11/28/2023 8:43 AM ELECTRIC SWITCH REPAIRER Oxygen Saturation 95% 11/28/2023 8:43 AM ELECTRIC SWITCH REPAIRER RA Inhaled Oxygen Concentration - - Weight 58.8 kg (129 lb 9.6 oz) 11/28/2023 8:43 A M ELECTRIC SWITCH REPAIRER Height 152 cm (4' 11.84) 10/19/2023 5:00 AM ELECTRIC SWITCH REPAIRER Body Mass Index 25.44 10/19/2023 5:00 AM ELECTRIC SWITCH REPAIRER Plan of Treatment Health Maintenance Due Date Last Done Comments Hepatitis C Screening 1945 COVID-19 Vaccine (#1) 12/31/1950 Pneumococcal vaccine (50+ years) (1 of 2 - PCV) 1965 Zoster Vaccines (1 of 2) 1965 RSV vaccine - (32-36 weeks) or 60+ years (1 - 1-dose 75+ series) 2021 Depression Screening (Annual PHQ-2) 10/13/2024 Fall Risk Screen (Annual) 10/13/2024 Creatinine Level (Kidney Function Test) 11/04/2024 11/04/2023, 10/27/2023, 10/21/2023, Additional history exists Potassium Level 11/04/2024 11/04/2023, 10/13, 10/21/2023, Additional history exists Sodium Level 11/04/2024 11/04/2023, 10/13, 10/21/2023, Additional history exists Office Visit for Blood Pressure Check / Re-check 11/28/2024 11/28/2023 Influenza Vaccine (#1) 2025 9, 07/18/2009, 07/18/2009 DTaP,Tdap,and Td Vaccines (5 - Td or Tdap) 04/22/2028 04/22/2018, 04/22/2015, 04/22/2015, Additional history exists IPV Vaccines Aged Out No longer eligi ble based on patient's age to complete this topic Procedures Procedure Name Priority Date/Time Associated Diagnosis Comments BASIC METABOLIC PANEL, S/P Routine 11/04/2023 6:52 AM ELECTRIC SWITCH REPAIRER Hypokalemia from Last 3 Months or Most Recently Relevant to Health Maintenance Results * (ABNORMAL) Basic Metabolic Panel (11/04/2023 6:52 AM ELECTRIC SWITCH REPAIRER) Potassium, P 4.1 3.6 - 5.2 mmol/L 11/04/2023 8:14 AM ELECTRIC SWITCH REPAIRER NPRG Sodium, P 142 135 - 145 mmol/L 11/04/2023 8:14 AM ELECTRIC SWITCH REPAIRER NPRG Chloride, P 102 98 - 107 mmol/L 11/04/2023 8:14 AM ELECTRIC SWITCH REPAIRER NPRG Bicarbonate, P 30(H) 22 - 29 mmol/L 11/04/2023 8:14 AM ELECTRIC SWITCH REPAIRER NPRG Anion Gap, P 10 7 - 15 11/04/2023 8:14 AM ELECTRIC SWITCH REPAIRER NPRG BUN (Blood Urea Nitrogen), P 21 6 - 21 mg/dL 11/04/2023 8:14 AM ELECTRIC SWITCH REPAIRER NPRG Creatinine 0.28(L) 0.59 - 1.04 mg/dL 11/04/2023 8:14 AM ELECTRIC SWITCH REPAIRER NPRG Estimated GFR (eGFR) >90 >=60 mL/min/BSA 11/04/2023 8:14 AM ELECTRIC SWITCH REPAIRER NPRG Comment: Estimated GFR calculated using the 2020 CKD_EPI creatinine equation. Calcium, Total, P 9.1 8.8 - 10.2 mg/dL 11/04/2023 8:14 AM ELECTRIC SWITCH REPAIRER NPRG Glucose, P 79 70 - 140 mg/dL 11/04/2023 8:14 AM ELECTRIC SWITCH REPAIRER NPRG Blood (Blood, Venous) 11/04/2023 6:52 AM ELECTRIC SWITCH REPAIRER 11/04/2023 7:43 AM ELECTRIC SWITCH REPAIRER us Osiris Otero APRN, C.N.P. 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
--- NOTE | 2025-05-15 17:01 | ED.GENADULT ---
HPI - General Adult General Time Seen by Provider: 16:58 Date Seen: 05/15/25 Chief complaint: Hypotension Stated complaint: Sepsis Time Seen by Provider: 05/15/25 16:58 Source: patient and RN notes reviewed Mode of arrival: ambulatory Limitations: no limitations History of Present Illness HPI narrative: This 79-year-old female comes via ambulance with [facility] with fevers, weakness at home. She is been having fevers and chills, increased abdominal pain, increased posterior buttock pain with a known ulcer. She has chronic Cristobal catheterization that was just changed Friday, states she is difficult to change. She was recently reportedly treated for UTI with antibiotics. She was noted to be tachycardic and hypotensive. EMS did give 500 mL normal saline and 4 mg IV Zofran. She states her abdomen feels more bloated, no nausea vomiting at this time. Her Cristobal catheter has purulent urine. She denies any headache, no cough or cold symptoms at this time. She is paraplegic with transverse myelopathy syndrome, underlying rheumatoid arthritis. She has had a history of recurrent urinary tract infections and has a neurogenic bladder with chronic catheterization. Does have history of MRSA. Related Data Home Medications ?Medication ?Instructions ?Recorded ?Confirmed multivitamin with folic acid 400 1 tab PO DAILY 03/22/24 04/09/25 mcg tablet (Daily-Charles (with folic acid)) Lactobacillus rhamnosus GG PO .QD 07/07/24 08/24/24 [Culturelle] acetaminophen 650 mg 1,300 mg PO Q12H PRN 07/07/24 04/09/25 tablet,extended release diclofenac sodium 1 % topical gel 4 g topical TID PRN 07/07/24 04/09/25 lidocaine HCl 4 % topical patch 3 patch topical Q24H 07/07/24 04/09/25 pregabalin 75 mg capsule 75 mg PO TID 07/07/24 04/09/25 sennosides 8.6 mg tablet 8.6 - 17.2 mg PO BID PRN 07/07/24 04/09/25 triamcinolone acetonide 0.1 % 1 applic topical BID PRN 07/07/24 04/09/25 topical cream naproxen sodium 220 mg capsule 220 mg PO QDAY PRN 08/24/24 04/09/25 polyethylene glycol 3350 17 gram 17 g PO QDAY 08/24/24 04/09/25 oral powder packet (Miralax) gabapentin 300 mg capsule 300 mg PO 3XD 04/09/25 04/09/25 ketoconazole 2 % topical cream applic topical BID 04/09/25 Previous Rx's ?Medication ?Instructions ?Recorded ascorbic acid (vitamin C) 500 mg 500 mg PO DAILY #30 tabs 12/13/23 tablet (Vitamin C) loperamide 2 mg capsule 2 mg PO TID PRN loose stool #30 12/13/23 caps miconazole nitrate 2 % topical 1 applic topical BID PRN #85 grams 12/13/23 powder zinc sulfate 50 mg zinc (220 mg) 50 mg PO DAILY #30 caps 12/13/23 capsule furosemide 20 mg tablet 20 mg PO QAM #90 tabs 08/24/24 metoprolol succinate 50 mg 50 mg PO QDAY #90 tabs 08/24/24 tablet,extended release 24 hr hydromorphone 2 mg tablet 2 mg PO Q6H PRN pain #90 tabs 10/19/24 (Dilaudid) amlodipine 5 mg tablet 5 mg PO DAILY #30 tabs 04/13/25 cefpodoxime 200 mg tablet 200 mg PO BID 5 days #10 tabs 04/13/25 Allergies Allergy/AdvReac Type Severity Reaction Status Date / Time piperacillin Allergy Intermediate Rash Verified 04/08/25 23:17 sulfamethoxazole (From Allergy Intermediate Hives Verified 04/08/25 23:17 Bactrim) tazobactam Allergy Intermediate Rash Verified 04/08/25 23:17 trimethoprim (From Bactrim) Allergy Intermediate Hives Verified 04/08/25 23:17 vancomycin Allergy Unknown Anaphylactic Verified 04/08/25 23:17 shock with this medication. 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 Review of Systems Status of ROS: Reports: 6 or more systems reviewed and unremarkable except as noted in History and below [facility] Medical History Rheumatoid arthritis ?M06.9 - Rheumatoid arthritis, unspecified (ICD-10) Lower extremity edema ?R60.0 - Localized edema (ICD-10) Scalp abscess ?L02.811 - Cutaneous abscess of head [any part, except face] (ICD-10) HTN (hypertension) ?I10 - Essential (primary) hypertension (ICD-10) Health care directive on file ?Z78.9 - Other specified health status (ICD-10) Pressure ulcer of coccygeal region, stage 4 ?L89.154 - Pressure ulcer of sacral region, stage 4 (ICD-10) UTI (urinary tract infection) ?N39.0 - Urinary tract infection, site not specified (ICD-10) Hypoalbuminemia due to protein-calorie malnutrition ?E88.09 - Other disorders of plasma-protein metabolism, not elsewhere classified (ICD-10) ?E46 - Unspecified protein-calorie malnutrition (ICD-10) 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, stage 4 ?L89.44 - Pressure ulcer of contiguous site of back, buttock and hip, stage 4 (ICD-10) Pressure ulcer ?L89.90 - Pressure ulcer of unspecified site, unspecified stage (ICD-10) Osteomyelitis ?M86.9 - Osteomyelitis, unspecified (ICD-10) Anemia ?D64.9 - Anemia, unspecified (ICD-10) Diarrhea ?R19.7 - Diarrhea, unspecified (ICD-10) Intravenous infiltration ?T80.1XXA - Vascular complications following infusion, transfusion and therapeutic injection, initial encounter (ICD-10) Neurogenic bladder ?N31.9 - Neuromuscular dysfunction of bladder, unspecified (ICD-10) Chronic, continuous use of opioids ?F11.90 - Opioid use, unspecified, uncomplicated (ICD-10) Cristobal catheter in place ?Z97.8 - Presence of other specified devices (ICD-10) Sleep apnea ?G47.30 - Sleep apnea, unspecified (ICD-10) Paraplegia ?G82.20 - Paraplegia, unspecified (ICD-10) Acute on chronic anemia ?D64.9 - Anemia, unspecified (ICD-10) Paraplegia ?G82.20 - Paraplegia, unspecified (ICD-10) Chronic pain ?G89.29 - Other chronic pain (ICD-10) Tubular adenoma of colon ?D12.6 - Benign neoplasm of colon, unspecified (ICD-10) 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 - Acute transverse myelitis in demyelinating disease of central nervous system (ICD-10) Septic shock ?A41.9 - Sepsis, unspecified organism (ICD-10) ?R65.21 - Severe sepsis with septic shock (ICD-10) Recurrent urinary tract infection ?N39.0 - Urinary tract infection, site not specified (ICD-10) Osteoporosis ?M81.0 - Age-related osteoporosis without current pathological fracture (ICD-10) History of methicillin resistant Staphylococcus aureus infection ?Z86.14 - Personal history of Methicillin resistant Staphylococcus aureus infection (ICD-10) Surgical History Colostomy status ?Z93.3 - Colostomy status (ICD-10) Status post debridement ?Z98.890 - Other specified postprocedural states (ICD-10) Social History Narrative: Mary has recently been living at [facility], daughter Elvi (MDM if needed) is hoping to bring her home with multimedia journalist caregiving. has cognitive impairment. At this time (12/08/23), she is requesting DNR/DNI status. Nonsmoker, no ETOH use. What is your current living situation?: I presently have a place to live Problems where you live: no known problems Problems where you live details: n/a In the past 12 months, utilities in danger of being shut off: no In past 12 months, lack of transportation kept you from medical appts, meetings, work, or getting things needed for daily living: no In the past 12 mos, have been you worried that your food would run out before you had money to buy more?: never true In the past 12 mos, the food you bought just didn't last and you didn't have money to buy more?: never true Highest level of school completed/degree received: Bachelor's degree Smoking Status: Never smoker Do you use any of these nicotine containing products: None Second hand tobacco smoke exposure: No How often do you have a drink containing alcohol: never How often do you have six or more drinks on one occasion: Never AUDIT-C Alcohol total score: 0 Non-prescribed substance use: denies use Caffeine: Yes (1 cup coffee/day) How often does anyone, including family, friends and others, physically hurt you: never How often does anyone, including family, friends and others, insult or talk down to you: never How often does anyone, including family, friends and others, threaten you with harm: never How often does anyone, including family, friends and others, scream or curse at you: never service: No Exam Const: Vital Signs, click to edit/add: Vital Signs - 24 hr 05/15/25 16:56 05/15/25 17:33 05/15/25 17:34 Temperature 99 F Pulse Rate 101 H 102 H Pulse Rate [Pulse Oximeter] 106 H Respiratory Rate 20 Blood Pressure 90/53 L Blood Pressure [Le ft Upper Arm] 91/43 L Pulse Oximetry 92 90 87 L Oxygen Delivery Me thod Room Air Oxygen Flow Rate 05/15/25 17:45 05/15/25 17:46 05/15/25 18:00 Temperature Pulse Rate 100 100 97 Pulse Rate [Pulse Oximeter] Respiratory Rate 17 15 17 Blood Pressure 97/46 L Blood Pressure [Le ft Upper Arm] Pulse Oximetry 79 L 88 99 Oxygen Delivery Me thod Room Air Nasal Cannula Oxygen Flow Rate 2 05/15/25 18:02 05/15/25 18:03 05/15/25 18:31 Temperature Pulse Rate 96 98 97 Pulse Rate [Pulse Oximeter] Respiratory Rate 15 15 17 Blood Pressure 95/46 L Blood Pressure [Le ft Upper Arm] Pulse Oximetry 100 100 98 Oxygen Delivery Me thod Oxygen Flow Rate 05/15/25 18:34 05/15/25 18:35 05/15/25 18:45 Temperature Pulse Rate 95 94 95 Pulse Rate [Pulse Oximeter] Respiratory Rate 15 14 14 Blood Pressure 106/49 L Blood Pressure [Le ft Upper Arm] Pulse Oximetry 100 100 100 Oxygen Delivery Me thod Oxygen Flow Rate 05/15/25 18:46 05/15/25 19:00 05/15/25 19:02 Temperature Pulse Rate 94 103 H 99 Pulse Rate [Pulse Oximeter] Respiratory Rate 16 27 H 17 Blood Pressure 99/43 L 95/55 L Blood Pressure [Le ft Upper Arm] Pulse Oximetry 100 100 100 Oxygen Delivery Me thod Oxygen Flow Rate 05/15/25 19:15 05/15/25 19:17 05/15/25 19:18 Temperature Pulse Rate 99 96 95 Pulse Rate [Pulse Oximeter] Respiratory Rate 20 15 15 Blood Pressure 99/44 L Blood Pressure [Le ft Upper Arm] Pulse Oximetry 99 100 100 Oxygen Delivery Me thod Oxygen Flow Rate 05/15/25 19:30 05/15/25 19:31 05/15/25 19:45 Temperature Pulse Rate 94 93 99 Pulse Rate [Pulse Oximeter] Respiratory Rate 21 15 14 Blood Pressure 98/45 L Blood Pressure [Le ft Upper Arm] Pulse Oximetry 100 100 100 Oxygen Delivery Me thod Oxygen Flow Rate 05/15/25 19:47 05/15/25 20:00 05/15/25 20:02 Temperature Pulse Rate 96 90 90 Pulse Rate [Pulse Oximeter] Respiratory Rate 10 L 13 15 Blood Pressure 104/46 L 105/45 L Blood Pressure [Le ft Upper Arm] Pulse Oximetry 100 100 100 Oxygen Delivery Me thod Oxygen Flow Rate 05/15/25 20:03 05/15/25 20:15 05/15/25 20:17 Temperature Pulse Rate 91 91 90 Pulse Rate [Pulse Oximeter] Respiratory Rate 14 15 16 Blood Pressure 105/47 L Blood Pressure [Le ft Upper Arm] Pulse Oximetry 100 100 100 Oxygen Delivery Me thod Oxygen Flow Rate 05/15/25 20:30 05/15/25 20:31 05/15/25 20:45 Temperature Pulse Rate 91 92 91 Pulse Rate [Pulse Oximeter] Respiratory Rate 15 15 13 Blood Pressure 101/45 L Blood Pressure [Le ft Upper Arm] Pulse Oximetry 100 100 100 Oxygen Delivery Me thod Oxygen Flow Rate 05/15/25 20:47 05/15/25 21:00 05/15/25 21:02 Temperature Pulse Rate 93 90 95 Pulse Rate [Pulse Oximeter] Respiratory Rate 16 14 17 Blood Pressure 107/47 L 103/44 L Blood Pressure [Le ft Upper Arm] Pulse Oximetry 100 100 100 Oxygen Delivery Me thod Oxygen Flow Rate 05/15/25 21:15 05/15/25 21:17 05/15/25 21:18 Temperature Pulse Rate 90 89 89 Pulse Rate [Pulse Oximeter] Respiratory Rate 14 15 14 Blood Pressure 99/43 L Blood Pressure [Le ft Upper Arm] Pulse Oximetry 100 100 100 Oxygen Delivery Me thod Oxygen Flow Rate 05/15/25 21:30 05/15/25 21:32 05/15/25 21:45 Temperature Pulse Rate 88 90 87 Pulse Rate [Pulse Oximeter] Respiratory Rate 14 15 15 Blood Pressure Blood Pressure [Le ft Upper Arm] Pulse Oximetry 100 100 100 Oxygen Delivery Me thod Oxygen Flow Rate 05/15/25 22:00 05/15/25 22:01 05/15/25 22:34 Temperature Pulse Rate 92 91 Pulse Rate [Pulse Oximeter] Respiratory Rate 15 14 Blood Pressure 105/46 L Blood Pressure [Le ft Upper Arm] Pulse Oximetry 100 100 100 Oxygen Delivery Me thod Nasal Cannula Oxygen Flow Rate 2 Course Course ED Course: Patient is presenting with tachycardia and hypotension but is alert and interactive. She most certainly is likely septic. Have ordered the sepsis volume of fluids, she also got 500 mL from EMS. I do think she needs imaging with CT of her abdomen pelvis, this should look at the buttock area as well. Sources are potentially the sacral/buttock ulcers, urinary tract. It is possible there is intra-abdominal pathology with her complaint of some abdominal discomfort. Blood cultures will be done, full complement of labs. She will be monitored on pulse oximetry and cardiac monitoring. Reevaluation(s) Time of Reevaluation #1: 17:50 Reevaluation #1: Confirmed with patient her advanced directives, she states she is DNR DNI. We certainly will work to try to treat her and reverse this, that is her wishes. Awaiting CT to be done. I did order meropenem. Did review recent urine culture from April 08 for which she was hospitalized. It did grow greater than 100,000 E coli which was sensitive to cephalosporins, ertapenem, meropenem, nitrofurantoin, sulfa and Zosyn but she has allergies to sulfa and Zosyn. There is also Enterococcus faecalis but Infectious Disease thought that that was colonization. We need to consider her buttock wound is well, waiting the CT to be done. She did end up on norepinephrine for blood pressure support while she was in the hospital in March. Her blood pressure is not that low at this time. She was on meropenem and daptomycin. Will cover with daptomycin for MRSA coverage if Infectious Disease agrees.. Time of Reevaluation #2: 19:08 Reevaluation #2: Did review with patient and family that is here now that she has an obstructing kidney stone on the right, she certainly is infected. There is also the possibility of some underlying osteomyelitis that might be chronic but cannot rule out acute changes, she has had increased pain of her sacral ulcer recently as well. She is covered for MRSA with daptomycin. We did start meropenem based on her last urine culture with the E coli. We do not have the ability to do id consult to the hospital here on the weekend, I was unaware of that. Did talk to our hospitalist and we did start the daptomycin based on her last hospitalization. She would like to try [facility] for transfer if possible, she can not go there than we can look at [place] or [place]. Her blood pressure is slightly better but still lower than where she normally is. She is still mentating, certainly not worsening. Will continue to monitor her closely and see if we can find transfer situation for her. He did have a CT of her chest abdomen pelvis when she was in the hospital last time on April 08. She had a 13 mm nonobstructing stone in the right renal pelvis. There are additional smaller nonobstructing stones. No hydronephrosis. Obviously something has dropped down and she has become obstructed. She states she has never had a history of kidney stones before. Consultations Consultation #1: Spoke with Dr. Covarrubias hospitalist from [facility]. We did review the case. He would like me to speak with Urology and conditional EA accepts if urology will accept this patient for transfer as well. Note, initial call from staff requesting bed placement went out at 19:11. 8:50 p.m.: Did speak with Dr. Nicole Alexis urologist at [facility]. She agrees with transfer for this patient. She is going to talk to the hospitalist but she is thinking percutaneous nephrostomy tube which will be IR. Reviewed with her that I certainly do not have IR here either. We will plan on transferring this patient. 10:35 p.m.: Nursing staff has been trying to connect with [facility], we are now being told that this patient is not accepted by the charge nurse. We have called patient placement and this person seems quite frustrated by this. He does understand that I have spoken with the hospitalist as well as Urology, have verbalized to him that we really need to get this patient up for urology care. He stated he was trying to call people, we agreed upon me just talking to the securities research analyst to see if we can get this facilitated. I feel that patient placement is really trying to advocate on the behalf of the patient but has limitations as to what he can do in this situation. I appreciate him trying to help us. Nursing staff subsequently was call back, stated that nurse to nurse report would be called in 10 minutes (10:38pm). Time: 20:25 Vital Signs Vital signs: Initial Vital Signs Temperature 99 F 05/15/25 16:56 Temperature Source Oral 05/15/25 16:56 Pulse Rate 106 H 05/15/25 16:56 Respiratory Rate 20 05/15/25 16:56 Blood Pressure 91/43 L 05/15/25 16:56 Blood Pressure Mean 59 L 05/15/25 16:56 Blood Pressure Position Supine 05/15/25 16:56 Pulse Oximetry 92 05/15/25 16:56 Oxygen Delivery Method Room Air 05/15/25 16:56 Vital Signs Temperature 99 F 05/15/25 16:56 Pulse Rate 106 H 05/15/25 16:56 Respiratory Rate 20 05/15/25 16:56 Blood Pressure 91/43 L 05/15/25 16:56 Pulse Oximetry 92 05/15/25 16:56 Oxygen Delivery Method Room Air 05/15/25 16:56 Temperature 99 F 05/15/25 16:56 Pulse Rate 96 05/15/25 23:45 Respiratory Rate 14 05/16/25 00:00 Blood Pressure 109/41 L 05/15/25 23:32 Pulse Oximetry 100 05/15/25 23:45 Oxygen Delivery Method Nasal Cannula 05/15/25 22:34 Oxygen Flow Rate 2 05/15/25 22:34 Medications Administered Medications: Discontinued Medications Generic Name Dose Route Start Last Admin Trade Name Freq PRN Reason Stop Dose Admin Daptomycin 425 mg 05/15/25 18:30 05/15/25 19:18 Daptomycin 50 Mg/Ml Inj 8 mg/kg (425 mg) 425 mg IVP Administration Q24H ESTELA Fentanyl 25 mcg 05/15/25 19:24 05/15/25 23:57 Fentanyl 100 Mcg/2 Ml Inj IVP 25 mcg Q2H PRN Administration Sodium Chloride 1,365 mls @ 455 mls/hr 05/15/25 17:15 05/15/25 21:12 0.9 % Sodium Chloride 1000 Ml 30 ml/kg infuse over 3 hr (1365 ml) 05/15/25 20:14 Infused IV Infusion .Q3H ESTELA Meropenem 1 gm/ Sodium 100 mls @ 200 mls/hr 05/15/25 17:46 05/15/25 19:03 Chloride IVPB 05/15/25 17:47 Infused ONCE ONE Infusion Sodium Chloride 1,000 mls @ 100 mls/hr 05/15/25 21:45 05/15/25 21:41 0.9 % Sodium Chloride 1000 Ml IV 100 mls/hr .Q10H ESTELA Administration Medical Decision Making Lab Data Lab results reviewed: Yes I reviewed the patient's lab results Labs: Lab Results 05/15/25 05/15/25 05/15/25 Range/Units 17:03 17:10 17:25 WBC 16.77 H (4.50-11.00) K/uL RBC 4.13 (4.00-5.20) m/uL Hgb 12.6 (12.0-16.0) gm/dL Hct 40.8 (33.0-51.0) % MCV 99 (80-100) fL MCH 31 (26-34) pg MCHC 31 L (32-36) gm/dL RDW Coeff of Lynette 14.5 (11.5-15.5) % Plt Count 213 (140-440) K/uL Neut % (Auto) 80.1 H (42.0-72.0) % Lymph % (Auto) 9.5 L (20-44) % Churchill % (Auto) 7.0 (0.0-11.0) % Eos % (Auto) 1.6 (0.0-7.0) % Baso % (Auto) 0.2 (0.0-3.0) % Neut # (Auto) 13.40 H (1.7-7.0) K/uL Lymph # (Auto) 1.60 (0.90-2.90) K/uL Churchill # (Auto) 1.20 H (0.00-0.90) K/UL Eos # (Auto) 0.30 (0.00-0.50) K/uL Baso # (Auto) 0.00 (0.00-0.30) K/uL Abs Immat Gran (auto) 0.30 (0.00-0.30) K/uL Imm/Tot Granulo (auto) 1.6 % Sodium 134 L (135-149) mmol/L Potassium 3.8 (3.6-5.1) mmol/L Chloride 101 (96-114) mmol/L Carbon Dioxide 26 (20-32) mmol/L Anion Gap 7 (7-15) mEq/L BUN 34 H (7-30) mg/dL Creatinine 0.6 (0.5-1.5) mg/dL Estimated Creat Clear 33.30 Estimated GFR 92 ml/min Glucose 77 (60-115) mg/dL Lactate 1.3 (0.5-1.9) mmol/L Calcium 8.4 (8.4-10.6) mg/dL Total Bilirubin 1.0 (0.1-1.5) mg/dL AST 86 H (12-35) U/L ALT 187 H (4-35) U/L Alkaline Phosphatase 196 H (40-150) U/L C-Reactive Protein 25.4 H (0.5-1.0) mg/dL Total Protein 5.5 L (6.0-8.3) g/dL Albumin 3.2 L (3.3-5.0) g/dL Lipase 23 (23-300) U/L Procalcitonin 0.24 (<0.50) ng/mL Urine Color Light yellow (Yellow) Urine Appearance Cloudy A (Clear) Urine pH 5.5 (5.0-8.5) Ur Specific [place] 1.025 (1.000-1.030) Urine Protein 2+ A (Negative) Urine Glucose (UA) Negative (Negative) Urine Ketones Trace A (Negative) Urine Blood 3+ A (Negative) Urine Nitrite Negative (Negative) Urine Bilirubin Negative (Negative) Urine Urobilinogen 0.2 (0.2-1.0) Ur Leukocyte Esterase 3+ A (Negative) Urine RBC 25-50 A (0-2) Urine WBC >100 A (0-5) Ur Squamous Epith Cells None (None-Few) Amorphous Sediment Moderate A (None) Other Sediment Many A (None) Urine Bacteria Few A (None) Urine Yeast Many A (None) Lab Acknowledgement POC Creatinine 0.8 (0.6-1.3) mg/dl 05/15/25 Range/Units 18:23 WBC (4.50-11.00) K/uL RBC (4.00-5.20) m/uL Hgb (12.0-16.0) gm/dL Hct (33.0-51.0) % MCV (80-100) fL MCH (26-34) pg MCHC (32-36) gm/dL RDW Coeff of Lynette (11.5-15.5) % Plt Count (140-440) K/uL Neut % (Auto) (42.0-72.0) % Lymph % (Auto) (20-44) % Churchill % (Auto) (0.0-11.0) % Eos % (Auto) (0.0-7.0) % Baso % (Auto) (0.0-3.0) % Neut # (Auto) (1.7-7.0) K/uL Lymph # (Auto) (0.90-2.90) K/uL Churchill # (Auto) (0.00-0.90) K/UL Eos # (Auto) (0.00-0.50) K/uL Baso # (Auto) (0.00-0.30) K/uL Abs Immat Gran (auto) (0.00-0.30) K/uL Imm/Tot Granulo (auto) % Sodium (135-149) mmol/L Potassium (3.6-5.1) mmol/L Chloride (96-114) mmol/L Carbon Dioxide (20-32) mmol/L Anion Gap (7-15) mEq/L BUN (7-30) mg/dL Creatinine (0.5-1.5) mg/dL Estimated Creat Clear Estimated GFR ml/min Glucose (60-115) mg/dL Lactate (0.5-1.9) mmol/L Calcium (8.4-10.6) mg/dL Total Bilirubin (0.1-1.5) mg/dL AST (12-35) U/L ALT (4-35) U/L Alkaline Phosphatase (40-150) U/L C-Reactive Protein (0.5-1.0) mg/dL Total Protein (6.0-8.3) g/dL Albumin (3.3-5.0) g/dL Lipase (23-300) U/L Procalcitonin (<0.50) ng/mL Urine Color (Yellow) Urine Appearance (Clear) Urine pH (5.0-8.5) Ur Specific [place] (1.000-1.030) Urine Protein (Negative) Urine Glucose (UA) (Negative) Urine Ketones (Negative) Urine Blood (Negative) Urine Nitrite (Negative) Urine Bilirubin (Negative) Urine Urobilinogen (0.2-1.0) Ur Leukocyte Esterase (Negative) Urine RBC (0-2) Urine WBC (0-5) Ur Squamous Epith Cells (None-Few) Amorphous Sediment (None) Other Sediment (None) Urine Bacteria (None) Urine Yeast (None) Lab Acknowledgement Test Added POC Creatinine (0.6-1.3) mg/dl Imaging Data CT scan - abdomen: Attestation: I have reviewed the pertinent imaging results. Radiologist's impression: Patient: DAYNA LIVINGSTON Facility:?[facility] Patient ID:?[id number] Site Patient ID:?[id number]. Site :?[id number] Study:?CT-Abdomen/Pelvis W/IV-05/15/2025 6:28:09 PM Ordering Physician:?Joni Min Final Report: Indication: abd pain, post pel/buttock pain w/ stage 4 pressure ulcer coccygeal region, parapelgic Technique: CT abdomen/pelvis with IV contrast utilizing 75 mL Isovue 370 Comparison: CT chest/abdomen/pelvis on April 08, 2025 Findings: LOWER THORAX: Minimal bibasilar linear atelectasis/scarring. ABDOMEN AND PELVIS: Liver: Unremarkable. Gallbladder and bile ducts: Prior cholecystectomy with expected mild biliary ductal dilatation secondary to reservoir effect. Pancreas: Atrophic without acute abnormality. Spleen: Unremarkable. Adrenal glands: Unremarkable. Kidneys/ureters: The left kidney and ureter are unremarkable. There is an obstructing 7 millimeter stone in the distal right ureter causing moderate right-sided hydroureteronephrosis. Additional large nonobstructing stones are seen in the right renal pelvis measuring 1.7 and 0.9 centimeters. GI tract: No evidence of bowel obstruction or inflammation. Partial colon resection with left lower quadrant end colostomy and Isabel pouch. Scattered colonic diverticula without CT evidence of acute diverticulitis. Vascular structures: Aortoiliac arterial calcifications. Lymph nodes: Unremarkable. Miscellaneous: Unremarkable. No free air or significant free fluid. Pelvic Organs: Hysterectomy. The bladder is decompressed with a Cristobal catheter. Bones/soft tissues: Decreased osseous mineralization. Posterior thoracolumbar hardware fixation. Scoliotic curvature. Persistent sclerotic and erosive changes involving the right ischial tuberosity consistent with history of chronic osteomyelitis. Persistent irregularity of the sacrum consistent with history of chronic osteomyelitis. No new fluid collections or abscess. Impression: 1. There is an obstructing 7 millimeter stone in the distal right ureter causing moderate right-sided hydroureteronephrosis. Additional large nonobstructing stones are seen in the right renal pelvis measuring 1.7 and 0.9 centimeters. 2. Similar-appearing persistent sclerotic and erosive changes involving the right ischial tuberosity and sacrum consistent with history of chronic osteomyelitis. Superimposed acute osteomyelitis can not be excluded in the appropriate clinical context. 3. No new fluid collections or abscess in the soft tissues of the pelvis. 4. Additional incidental findings as detailed above. Please note that all CT scans at this facility use dose modulation, iterative reconstruction, and/or weight-based dosing when appropriate to reduce radiation dose to as low as reasonably achievable. Dictated by Cristino Contreras MD @ 05/15/2025 7:01:39 PM (Electronic Signature) ECG Data Attestation: I personally reviewed and interpreted this ECG as follows: (Sinus tachycardia, 103 beats per minute. Right bundle branch block/intra conduction delay.) Prior ECG tracings: available for review (Similar to prior EKGs.) Discharge Plan Discharge Clinical Impression: Urinary tract infection, Hydronephrosis with urinary obstruction due to renal calculus, Sepsis, Chronic ulcer of sacral region Prescriptions: No Action diclofenac sodium 1 % gel 4 g topical TID PRN lidocaine HCl 4 % adhesive patch,medicated 3 patch topical Q24H pregabalin 75 mg capsule 75 mg PO TID sennosides 8.6 mg tablet 8.6 - 17.2 mg PO BID PRN acetaminophen 650 mg tablet extended release 1,300 mg PO Q12H PRN Lactobacillus rhamnosus GG [Culturelle] PO .QD triamcinolone acetonide 0.1 % cream 1 applic topical BID PRN naproxen sodium 220 mg capsule 220 mg PO QDAY PRN polyethylene glycol 3350 [Miralax] 17 gram powder in packet 17 g PO QDAY furosemide 20 mg tablet 20 mg PO QAM Qty: 90 3RF metoprolol succinate 50 mg tablet extended release 24 hr 50 mg PO QDAY Qty: 90 3RF zinc sulfate 50 mg zinc (220 mg) capsule 50 mg PO DAILY Qty: 30 0RF ascorbic acid (vitamin C) [Vitamin C] 500 mg tablet 500 mg PO DAILY Qty: 30 0RF loperamide 2 mg capsule 2 mg PO TID PRN (Reason: loose stool) Qty: 30 0RF miconazole nitrate 2 % powder 1 applic topical BID PRNQty: 85 0RF multivitamin with folic acid [Daily-Charles (with folic acid)] 400 mcg tablet 1 tab PO DAILY gabapentin 300 mg capsule 300 mg PO 3XD ketoconazole 2 % cream topical BID amlodipine 5 mg Tablet 5 mg PO DAILY Qty: 30 0RF cefpodoxime 200 mg tablet 200 mg PO BID 5 Days Qty: 10 0RF Rx Instructions: must administer with a meal/food hydromorphone [Dilaudid] 2 mg tablet 2 mg PO Q6H PRN (Reason: pain) Qty: 90 0RF Follow Up/Referrals: Provider,Not a Local [Non-Staff, Family Practice]
[2025-05-15 17:20] LABS: Lactate* 1.3 mmol/L (0.5-1.9)
[2025-05-15 17:26] LABS: Creatinine, Point-of-Care* 0.8 mg/dl (0.6-1.3)
[2025-05-15 17:36] LABS: Appearance Urine Cloudy (Clear)
[2025-05-15 17:36] LABS: Hematocrit 40.8 % (33.0-51.0); Hemoglobin* 12.6 gm/dL (12.0-16.0); Immature Granulocytes Pct Auto 1.6 %; Mean Corpuscular HGB Conc 31 gm/dL (32-36); Mean Corpuscular Hemoglobin 31 pg (26-34); Mean Corpuscular Volume 99 fL (80-100); RDW Coefficient of Variation % 14.5 % (11.5-15.5); Red Blood Count 4.13 m/uL (4.00-5.20); White Blood Count* 16.77 K/uL (4.50-11.00)
[2025-05-15 17:37] LABS: Immature Granulocytes Abs Auto 0.30 K/uL (0.00-0.30); Lymphocytes Absolute Auto 1.60 K/uL (0.90-2.90); Slide Review Reflex No
[2025-05-15 17:41] LABS: Albumin* 3.2 g/dL (3.3-5.0); Chloride* 101 mmol/L (96-114)
[2025-05-15 17:42] LABS: Potassium* 3.8 mmol/L (3.6-5.1); Sodium* 134 mmol/L (135-149)
[2025-05-15] MEDS: SODIUM CHLORIDE 455 ML IV (17:42)
[2025-05-15 17:44] LABS: Blood Urea Nitrogen* 34 mg/dL (7-30); Creatinine* 0.6 mg/dL (0.5-1.5); Est. Creatinine Clearance* 33.30; Estimated Glomerular Filt Rate 92 ml/min
[2025-05-15 17:45] LABS: Alanine Aminotransferase* 187 U/L (4-35); Alkaline Phosphatase* 196 U/L (40-150); Anion Gap 7 mEq/L (7-15); Aspartate Amino Transferase* 86 U/L (12-35); Bilirubin Total* 1.0 mg/dL (0.1-1.5); Calcium* 8.4 mg/dL (8.4-10.6); Carbon Dioxide* 26 mmol/L (20-32); Glucose* 77 mg/dL (60-115); Total Protein* 5.5 g/dL (6.0-8.3)
[2025-05-15 17:48] LABS: Other Sediment Urine Many
[2025-05-15 18:02] LABS: Procalcitonin* 0.24 ng/mL (<0.50)
--- OUTSIDE RECORDS SUMMARY | 2025-05-15 18:20 | XMS_ITS | CCD ---
Author Name Interface, [id number] lity Address [address] [place] [id number] [facility] Address [address] [place] [address] Reason for Visit Diagnostic Results Date Type Test Units Lower Limit Upper Limit Result Flag Comments Status Ordered By Specimen Source Lab Address 09/10 [facility] [place] other lab See attache lopez Social History Date Name Value Sex Female
--- OUTSIDE RECORDS SUMMARY | 2025-05-15 18:20 | XMS_ITS | CCD ---
Author Name Interface, [id number] lity Address [address] [place] [id number] [facility] Address [address] [place] [id number] Reason for Visit Diagnostic Results Date Type Test Units Lower Limit Upper Limit Result Flag Comments Status Ordered By Specimen Source Lab Address 09/10 [facility] [place] other lab See attache lopez Social History Date Name Value Sex Female
[2025-05-15] MEDS: MEROPENEM 1 GM in 0.9 % SODIUM CHLORIDE Mini-bag 100 ML IVPB (18:32)
[2025-05-15] MEDS: DAPTOmycin 50 MG/ML inj 425 MG IVP (19:18)
--- NOTE | 2025-05-15 23:00 | ED.NURSE ---
Report to Hattie, MARKETING INFORMATION COORDINATOR.
[2025-05-16] VITALS: RESP 14
--- NOTE | 2025-05-16 00:05 | ED.NURSE ---
Report to EMS. Pain medication given prior to transfer to EMS stretcher per pt request. All belongings sent w/ patient including biPap. IVF infusing.
== END 2025-05-16 00:08 | disposition other institution (70) ==
PROVIDERS: Emergency Provider Family Medicine; PCP Family Medicine
DX: A41.9 Sepsis, unspecified organism (principal); N39.0 Urinary tract infection, site not specified; N13.2 Hydronephrosis with renal and ureteral calculous obstruction; L98.419 Non-pressure chronic ulcer of buttock with unspecified severity
CPT/HCPCS: 36415; 74177; 80053; 81001; 82565; 83605; 83690; 84145; 85025; 86140; 87040; 87086; 93005; 94761; 96365; 96375; 99285; 99291; J0878; J2185; J3010; J7030; Q9967

== ENCOUNTER 2025-05-16 | Outpatient (CLI) | payer MEDICARE, SELFPAY | END 2025-05-16 00:01 | disposition home or self-care (01) | PROVIDERS: PCP Family Medicine; Visit Provider Emergency Medicine | DX: N39.0 Urinary tract infection, site not specified (principal); N13.2 Hydronephrosis with renal and ureteral calculous obstruction; A41.9 Sepsis, unspecified organism; L98.429 Non-pressure chronic ulcer of back with unspecified severity | CPT/HCPCS: A0425; A0427 ==